=== PATIENT | female | born 1935 | race Caucasian/White ===

== ENCOUNTER 2017-05-30 15:24 | Outpatient (RCR) | payer MEDICARE, BC, SELFPAY ==
[2017-05-30 17:39] LABS: Prothrombin Time (Protime)PT. 29.8 SECONDS (11.7-14.9)
== END 2017-05-30 15:45 | disposition home or self-care (01) ==
LOC: MTLAB 15:24
PROVIDERS: Family Provider Family Medicine; PCP Family Medicine; Visit Provider Internal Medicine Cardiovascular Disease
DX: I48.0 Paroxysmal atrial fibrillation (principal); Z79.899 Other long term (current) drug therapy
CPT/HCPCS: 36415; 85610

== ENCOUNTER 2017-06-11 11:15 | Outpatient (RCR) | payer MEDICARE, BC, SELFPAY ==
[2017-06-11 12:14] LABS: International Normalized Ratio 3.9; Prothrombin Time (Protime)PT. 36.8 SECONDS (11.7-14.9)
== END 2017-06-11 11:16 | disposition home or self-care (01) ==
LOC: MTLAB 11:15
PROVIDERS: Family Provider Family Medicine; PCP Family Medicine; Visit Provider Internal Medicine Cardiovascular Disease
DX: I48.0 Paroxysmal atrial fibrillation (principal); Z79.899 Other long term (current) drug therapy
CPT/HCPCS: 36415; 85610

== ENCOUNTER 2017-07-08 10:50 | Outpatient (RCR) | payer MEDICARE, BC, SELFPAY ==
[2017-06-16 12:31] LABS: International Normalized Ratio 1.9; Prothrombin Time (Protime)PT. 20.6 SECONDS (11.7-14.9)
[2017-06-23 12:24] LABS: International Normalized Ratio 1.8; Prothrombin Time (Protime)PT. 20.3 SECONDS (11.7-14.9)
[2017-07-01 12:20] LABS: International Normalized Ratio 3.3
[2017-07-08 12:56] LABS: International Normalized Ratio 2.9; Prothrombin Time (Protime)PT. 28.9 SECONDS (11.7-14.9)
== END 2017-07-08 15:00 | disposition home or self-care (01) ==
LOC: MTLAB 10:50
PROVIDERS: Family Provider Family Medicine; PCP Family Medicine; Visit Provider Internal Medicine Cardiovascular Disease
DX: I48.0 Paroxysmal atrial fibrillation (principal); Z79.899 Other long term (current) drug therapy
CPT/HCPCS: 36415; 85610

== ENCOUNTER 2017-07-09 16:00 | Outpatient (RCR) | payer MEDICARE, BC, SELFPAY ==
--- NOTE | 2017-05-26 17:23 | HP.PTEVAL_ITS ---
Patient's Visit Information JOYCE SOLOMON is a 82 year old F referred to Physical Therapy by Hussein LUNA with a diagnosis of R upper trapezius strain. Date of Evaluation: 05/26/17 Physical Therapist: Skinny Montelongo - Visit Plan Frequency: 2x /Week Duration: 4 Weeks Plan: Start with R UT/levator scapulea and sub occipital stretching, trigger point release, gental cervical mobs PA, US to R UT and sub occipital region. Progress postural strengthening once symptoms has reduced. - Subjective Subjective: Pt. is here today for her initial evaluation with diagnosis of R upper trapezius strain. Pt. is a plesant 82 y.o. female who reports having increased pain over the past 1.5 weeks. Pt. does report a history of migraines ~ 3 years ago, but none since. Pt. reports no mechanism of injury. Pt. reports waking up with symptoms. Pt. reports symptoms are mostly on the R side, but does have some on the L side as well. She reports having pain that radiaties to temporalis region and front of head. Increased pain: cervical flexion and extension, reading, and lying. Decreased pain: heat and pressure to her sub occipital area. Pt. denies N/T in either UE. Pt. also reports having popping feeling in neck with ROM, occassionally painful. Pt. denies blurred vision, double vision, but does effect her ability to consentrate. Pt. is hopeful to reduce symptoms in order to get back to all activities with increased tolerance. - Pain R cervical spine Pain Intensity (Out of 10): 5 Pain Intensity Range: 3, 10 R temporal region Pain Intensity (Out of 10): 5 Pain Intensity Range: 2, 10 - Objective POSTURE: Pt. has rounded shoulders, FH positioning and increased thoracic kyphosis. PALPATION: Pt. has increased tenderness at R UT, R levator scapulea, R sub occipital region. Pt. does have tenderness to palpation of L sub occipital region as well. NEUROLOGICAL: Pt. has normal sensation to light and sharp touch throughout bilateral UEs. Pt. has 2+ biceps and triceps bilaterally. Pt. has no dural signs. ROM: CERVICAL SPINE: flexion nil loss increase NW, ext min loss increase NW, SB min loss bilat mild increase NW, rotation min/nil loss NE. Pt. has increased lower cervical flexion and increased upper cervical ext. Pt. has normal shoulder ROM, slight reduction in L shoulder ROM (previous shoulder injury). MMT-Pt. has expected strength throughout bilateral UEs. No myotomal weakness noted. Pt. has 4/5 cervical isometrics throughout no increase in symptoms. - Special Tests C/S Radiculapathy - Left Upper limb tension test: Negative C/S Radiculapathy - Right Upper limb tension test: Negative C/S Radiculapathy - Left Spurlings: Negative C/S Radiculapathy - Right Spurlings: Negative C/S Radiculapathy - Left Cervical distraction: Negative C/S Radiculapathy - Right Cervical distraction: Negative C/S Radiculapathy - Left Relief test: Negative C/S Radiculapathy - Right Relief test: Negative Sharp Orestes: Negative Vertebral Artery Test: Negative Alar Ligament Test: Negative Cervical Sitting: Protrusion - Mechanical Response: No effect Cervical Sitting: Protrusion - Symptoms During Testing: No effect Cervical Sitting: Protrusion - Symptoms After Testing: No effect Cervical Sitting: Retraction - Mechanical Response: No effect Cervical Sitting: Retraction - Symptoms During Testing: Increases Cervical Sitting: Retraction - Symptoms After Testing: No worse Cervical Sitting: Retraction-Extension - Mechanical Response: No effect Cerv Sitting: Retraction-Extension - Symptoms During Testing: Increases Cerv Sitting: Retraction-Extension - Symptoms After Testing: No worse Cervical Sitting: Sidebend Right - Mechanical Response: No effect Cervical Sitting: Sidebend Right - Symptoms During Testing: No effect Cervical Sitting: Sidebend Right - Symptoms After Testing: No effect Cervical Sitting: Sidebend Left - Mechanical Response: No effect Cervical Sitting: Sidebend Left - Symptoms During Testing: Increases Cervical Sitting: Sidebend Left - Symptoms After Testing: No worse Cervical Sitting: Rotation Right - Mechanical Response: No effect Cervical Sitting: Rotation Right - Symptoms During Testing: No effect Cervical Sitting: Rotation Right - Symptoms After Testing: No effect Cervical Sitting: Rotation Left - Mechanical Response: No effect Cervical Sitting: Rotation Left - Symptoms During Testing: No effect Cervical Sitting: Rotation Left - Symptoms After Testing: No effect Cervical Sitting: Flexion - Mechanical Response: No effect Cervical Sitting: Flexion - Symptoms During Testing: Increases Cervical Sitting: Flexion - Symptoms After Testing: No worse - Goals Goal 1:: Pt. to be I with HEP. Goal Time Frame: 4-6 Weeks Goal 2:: Pt. to have increased ROM of cervical spine by 25% in all directions without increase in symptoms. Goal Time Frame: 4-6 Weeks Goal 3:: Pt. to have decreased pain of cervical spine and TORO at rest to 0-1/10 allowing to increased quality of life. Goal Time Frame: 4-6 Weeks Goal 4:: Pt. to sleep throughout the night with 0-1/10 pain. Goal Time Frame: 4-6 Weeks Goal 5:: Pt. to demonstrate proper posture throughout therapy indicating increased postural awareness. Goal Time Frame: 4-6 Weeks Goal 6:: Pt. to complete all ADLs, house work, driving and reading with 0-1/10 pain. - Rehabilitation Potential Physical Therapy Diagnosis: Pt. has signs and symptoms consisten with R upper trapezius strain, but also tight sub occipitals causing occipital neuralgia symptoms. Pt. would benefit from postural education, scapular strengthening, trigger point realse and US to reduce symptoms. Rehabilitation Potential: Good - Anticipated Interventions Patient/Client Instruction: Educate patient on: Condition, Plan of Care, Risk Factors, Benefits of Fitness Program For the Purpose of:: To improve health and function, To foster healthy habits, To improve decision making, To facilitate caregiver knowledge, To improve self management, To prevent re-injury, To improve ability to perform tasks related to life management, To improve tolerance to ADL's Therapeutic Exercise to Include: Strength training, Power training, Body mechanics, Postural training, Flexibilty training, Passive ROM, Active ROM, Deon Exercises, Scapular Strength/Stabilization For the Purpose of:: To decrease pain, To increase ROM, To improve nutrient delivery to tissue, To increase oxygenation perfusion, To improve muscle performance and motor function, To increase tolerance to activity/condition/ position, To improve performance and independence with ADL's, To decrease soft tissue restriction, To increase flexibility/ROM Manual Therapy Techniques to Include: Trigger point massage, Mobilization, Passive ROM, Functional dry needling, Soft tissue mobilization For the Purpose of:: To decrease pain, To decrease swelling/inflammation, To increase ROM, To improve nutrient delivery to tissue, To increase oxygenation perfusion, To improve muscle performance and motor function Ultrasound (thermal/non thermal): Yes For the Purpose of:: To decrease pain, To increase ROM Thank you for the opportunity to evaluate your patient. For Medicare and Medicare HMO plans, please review the plan of care and approve it. It will need to be FAXED BACK to us at [phone] for Medicare purposes. Please let me know if there are questions or concerns regarding this plan of care. Physician Signature: Date:
--- NOTE | 2017-06-27 07:17 | HP.PTREVAL_ITS ---
DR.CRANNE Brigette It has been my pleasure to treat JOYCE SOLOMON over the last 8 visits for R upper trapezius strain. Please see the progress note below for an update on the physical therapy plan of care! Subjective: Pt. reports having a 2/10 TORO at front of head, no pulsating in temporal region this date. She reports being pain free for last two days, but TORO reoccured this AM. Pt. reports being HEP compliant with all exercises without adverse reaction. Pt. reports being 50% better overall. Objective/Function: Pt. is progressing with cervical ROM, but has no pain with ROM. Pt. is progressing with reduction in symptoms, but does have increased TORO at times. Overall reduction in symptoms and severity. Pt. reports wanting to continue to further reduce symptoms. Pt. has tightness in her suboccipitals, but is improving. She continues to require increased VCing to proper posture and to reduce stress applied to suboccipitals with all ADLs. Plan Plan: Pt. will continued to be seen x1 per week for 2-3 weeks to progress HEP and reduce symptoms. Goals Goal 1:: Pt. to be I with HEP. (pt. is compliant with HEP) Goal Time Frame: 4-6 Weeks Goal Progress: Goal Met Goal 2:: Pt. to have increased ROM of cervical spine by 25% in all directions without increase in symptoms. (CERIVCAL ROM: flexion nil loss NE, ext min loss NE, SB min loss bilat NE, rotaton nil/min loss NE) Goal Time Frame: 4-6 Weeks Goal Progress: Goal Met Goal 3:: Pt. to have decreased pain of cervical spine and TORO at rest to 0-1/10 allowing to increased quality of life. (pt. reports having a 2-3/10 pain at front of head, had 2 days without pain) Goal Time Frame: 4-6 Weeks Goal Progress: Progressing Goal 4:: Pt. to sleep throughout the night with 0-1/10 pain. (pt. reports improved sleeping- overall decreased pain throughout the night.) Goal Time Frame: 4-6 Weeks Goal Progress: Progressing Goal 5:: Pt. to demonstrate proper posture throughout therapy indicating increased postural awareness. Goal Time Frame: 4-6 Weeks Goal 6:: Pt. to complete all ADLs, house work, driving and reading with 0-1/10 pain. (Pt. reports being able to complete most or her chores and house work without symtpoms). Goal Progress: Progressing Anticipated Interventions Patient/Client Instruction: Educate patient on: Condition, Plan of Care, Risk Factors, Benefits of Fitness Program For the Purpose of:: To improve health and function, To foster healthy habits, To improve decision making, To facilitate caregiver knowledge, To improve self management, To prevent re-injury, To improve ability to perform tasks related to life management, To improve tolerance to ADL's Therapeutic Exercise to Include: Strength training, Power training, Body mechanics, Postural training, Flexibilty training, Passive ROM, Active ROM, Deon Exercises, Scapular Strength/Stabilization For the Purpose of:: To decrease pain, To increase ROM, To improve nutrient delivery to tissue, To increase oxygenation perfusion, To improve muscle performance and motor function, To increase tolerance to activity/condition/ position, To improve performance and independence with ADL's, To decrease soft tissue restriction, To increase flexibility/ROM Manual Therapy Techniques to Include: Trigger point massage, Mobilization, Passive ROM, Functional dry needling, Soft tissue mobilization For the Purpose of:: To decrease pain, To decrease swelling/inflammation, To increase ROM, To improve nutrient delivery to tissue, To increase oxygenation perfusion, To improve muscle performance and motor function Ultrasound (thermal/non thermal): Yes For the Purpose of:: To decrease pain, To increase ROM Please do not hesitate to contact me at [phone] by phone or Fax: if you have questions or concerns regarding this new plan of care! Sincerely, Skinny Montelongo
--- NOTE | 2017-07-10 07:27 | HP.PTDCSUM ---
HP - PT D/C Summary It has been my pleasure to treat JOYCE SOLOMON under orders from DR.CRANNE Brigette for the diagnosis of R upper trapezius strain for a total of 10 visit(s). Discharge Date: 07/09/17 Please see the following information for a summary of their discharge status. - Subjective Subjective: Pt. reports today is a good day, I have my good days and bad ones. Pt. reports having slight TORO in the front of her head this date. Pt. reports being HEP compliant without adverse reaction. Pt. reports being 60% better overall. - Pain R cervical spine Pain Intensity (Out of 10): 1 R temporal region Pain Intensity (Out of 10): 0 TORO Pain Intensity (Out of 10): 1 - Overall Improvement % Improvement: 60 - Objective Objective/Function: Pt. tolerated all PT this date. Pt. has started to have minimal progress with PT. Pt. is back to reading without issues and is able to demonstrate proper body mechanics with several activities. Pt. continues to have incerased difficulty maintaining proper cervical spine positioning. Pt. is independent with her HEP as this current time and will be DC to HEP today. - Goals Goal 1:: Pt. to be I with HEP. (pt. is compliant with HEP) Goal Progress: Goal Met Goal 2:: Pt. to have increased ROM of cervical spine by 25% in all directions without increase in symptoms. (CERIVCAL ROM: flexion nil loss NE, ext min loss NE, SB min loss bilat NE, rotaton nil/min loss NE) Goal Progress: Goal Met Goal 3:: Pt. to have decreased pain of cervical spine and TORO at rest to 0-1/10 allowing to increased quality of life. (pt. reports having a 0-2/10 pain at front of head, has pain ~2-3 times per week) Goal Progress: Goal Met Goal 4:: Pt. to sleep throughout the night with 0-1/10 pain. (pt. reports improved sleeping- overall decreased pain throughout the night.) Goal Progress: Goal Met Goal 5:: Pt. to demonstrate proper posture throughout therapy indicating increased postural awareness. (improved posture, but continues to have flexed lower cervical spine and extended upper cervical spine) Goal Progress: Progressing Goal 6:: Pt. to complete all ADLs, house work, driving and reading with 0-1/10 pain. (Pt. reports being able to complete most or her chores and house work without symtpoms). Goal Progress: Progressing - Plan Plan: Pt. to be DC to HEP today. - D/C Information Discharge Comments: Pt. made progress with manual stretching, body mechanics, US and trigger point release. Pt. has started to plataeu with exercises and PT. Pt. is independent with HEP and wished to continue on her own at this point in time. Pt. will be DC this date. If there are questions or concerns regarding this patient's physical therapy, please feel free to call me at [phone]. Thank you for the referral of this patient. Sincerely, Skinny Montelongo
== END 2017-07-09 19:00 | disposition home or self-care (01) ==
LOC: PT 16:00
PROVIDERS: Family Provider Family Medicine; PCP Family Medicine; Visit Provider Family Medicine
DX: S46.811D Strain of other muscles, fascia and tendons at shoulder and upper arm level, right arm, subsequent encounter (principal)
CPT/HCPCS: 97035; 97110; 97140; 97161; 97530

== ENCOUNTER 2017-08-05 11:13 | Outpatient (RCR) | payer MEDICARE, BC, SELFPAY ==
[2017-07-22 12:08] LABS: International Normalized Ratio 1.9; Prothrombin Time (Protime)PT. 22.2 SECONDS (11.7-14.9)
[2017-08-05 14:15] LABS: International Normalized Ratio 2.2; Prothrombin Time (Protime)PT. 24.3 SECONDS (11.7-14.9)
== END 2017-08-05 12:00 | disposition home or self-care (01) ==
LOC: MTLAB 11:13
PROVIDERS: Family Provider Family Medicine; PCP Family Medicine; Visit Provider Internal Medicine Cardiovascular Disease
DX: I48.91 Unspecified atrial fibrillation (principal); Z79.899 Other long term (current) drug therapy
CPT/HCPCS: 36415; 85610

== ENCOUNTER → 2017-08-18 17:25 | Outpatient (CLI) | payer MEDICARE, BC, SELFPAY ==
--- NOTE | 2017-08-18 09:45 | FLU_PTH ---
PATIENT: JOYCE SOLOMON LOC: [facility] U#:[id number] AGE/SX: 89/F ROOM: RE08/18/[address]: MIKE Greene : 1935 BED: DIS: SPEC #: [id number] RECD: 08/18/17 16:00 STATUS: KALPESH AURELIANO #: [id number] HILDA: 08/18/17 09:[address]: Nallely Wright NP DEPT: CYTOLOGY RECD BY: Oseas Child ENTERED: 08/19/17 09:11 SP TYPE: Fluid OTHR DR: Dr. Hussein Swenson MD Tissues: Urine Procedures: Pap Stain (control) Special Stain Group II Surgery Specimen Level IV Cytospin Fluid HEADER OPERATION: Not noted PRE-OP DIAGNOSIS: R31.1 TISSUE SUBMITTED: Urine for cytology DIAGNOSIS CYTOLOGY Urine for cytology (cytospin): Negative for malignant cells. AM:perry 08/20/17 COMMENT The specimen primarily contains squamous epithelial cells. Clinical correlation is suggested. CYTOLOGY STUDY Slides are reviewed. CYTOLOGY GROSS Received is 15 ml of clear yellow labeled with the patient's name and and designated per the requisition as urine. Submitted for cytology preparation. / BIENVENIDO:al 08/19/17 TC:5 [facility]: [id number]
[2017-08-18 17:31] LABS: Cytology, Body Fluid / CSF SEE PATHOLOGY REPORT
== END ==
PROVIDERS: Family Provider Family Medicine; Visit Provider Nurse Practitioner Adult Health
DX: R31.1 Benign essential microscopic hematuria (principal)
CPT/HCPCS: 88108; 88305; 88313

== ENCOUNTER 2017-08-20 11:25 | Outpatient (RCR) | payer MEDICARE, BC, SELFPAY ==
[2017-08-20 12:15] LABS: International Normalized Ratio 2.3; Prothrombin Time (Protime)PT. 25.5 SECONDS (11.7-14.9)
== END 2017-08-20 11:30 | disposition home or self-care (01) ==
LOC: MTLAB 11:25
PROVIDERS: Family Provider Family Medicine; PCP Family Medicine; Visit Provider Internal Medicine Cardiovascular Disease
DX: I48.91 Unspecified atrial fibrillation (principal); Z79.899 Other long term (current) drug therapy
CPT/HCPCS: 36415; 85610

== ENCOUNTER 2017-09-25 09:10 | Outpatient (RCR) | payer MEDICARE, BC, SELFPAY ==
[2017-09-25 10:19] LABS: International Normalized Ratio 2.4; Prothrombin Time (Protime)PT. 26.6 SECONDS (11.7-14.9)
== END 2017-09-25 10:00 | disposition home or self-care (01) ==
LOC: MTLAB 09:10
PROVIDERS: Family Provider Family Medicine; PCP Family Medicine; Visit Provider Internal Medicine Cardiovascular Disease
DX: I48.91 Unspecified atrial fibrillation (principal); Z79.899 Other long term (current) drug therapy
CPT/HCPCS: 36415; 85610

== ENCOUNTER 2017-10-20 13:16 | Outpatient (RCR) | payer MEDICARE, BC, SELFPAY ==
--- NOTE | 2017-10-20 13:16 | DT_ITS ---
This patient was seen during an EMR downtime October 13, 2017 - October 20, 2017. This patient may have a combination of paper and electronic documentation or all paper documentation. All documentation is viewable within the e-chart portion of [facility] for each patient visit.
[2017-10-20 16:31] LABS: International Normalized Ratio 2.9; Prothrombin Time (Protime)PT. 30.5 SECONDS (11.7-14.9)
== END 2017-10-20 14:00 | disposition home or self-care (01) ==
LOC: MTLAB 13:16
PROVIDERS: Family Provider Family Medicine; PCP Family Medicine; Visit Provider Internal Medicine Cardiovascular Disease
DX: I48.91 Unspecified atrial fibrillation (principal); Z79.899 Other long term (current) drug therapy
CPT/HCPCS: 36415; 85610

== ENCOUNTER → 2017-11-17 12:06 | Outpatient (CLI) | payer MEDICARE, BC, SELFPAY ==
[2017-11-17 14:05] LABS: Absolute Lymphocyte Count 1.63 X10^3/ul (0.83-4.51); Absolute Neutrophil Count 3.7 X10^3/uL (2.0-7.7); Basophil# 0.05 X10^3/uL; Basophil% 0.8 % (0-1); Eosinophil# 0.09 X10^3/uL; Eosinophils% 1.5 % (0-5); Hematocrit 38.7 % (37-47); Hemoglobin 12.3 g/dl (12.0-15.0); Lymphocyte # 1.63 X10^3/ul (4.0); Lymphocyte % 27.3 % (19-41); Mean Corp Hgb Conc 31.8 g/gl (32-36); Mean Corpuscular Hgb 30.2 pg (27.0-32.0); Mean Corpuscular Volume 95.1 fL (81-99); Mean Platelet Vol. 10.1 fl (6.2-12.0); Monocyte# 0.46 X10^3/uL; Monocyte% 7.7 % (0-10); Neutrophil # 3.73 X10^3/uL (2.7-7.7); Neutrophil % 62.5 % (47-70); Platelet Count 285 K/mm3 (150-450); Red Blood Count 4.07 M/mm3 (4.2-5.4)
[2017-11-17 14:06] LABS: Erythrocyte Sedimentation Rate 10 mm/hr (0-30)
[2017-11-17 14:07] LABS: POSITIVE COUNT NO; POSITIVE DIFFERENTIAL NO; POSITIVE MORPHOLOGY NO
[2017-11-17 14:15] LABS: Vitamin B12 437 pg/mL (211-911); Vitamin D,25 Hydroxy 49.8 ng/mL (29.95-100.01)
[2017-11-17 14:25] LABS: AST(SGOT) 24 U/L (15-37); Alanine Aminotransfer ALT/SGPT 25 U/L (13-56); Albumin, Serum 3.7 g/dL (3.2-5.0); Alkaline Phosphatase 57 U/L (45-117); Anion Gap 8 (5-15); BUN 22 mg/dL (7-18); BUN/Creat Ratio 24.1 RATIO (10-20); CRP 5.87 mg/L (0.0-3.0); Calcium,Total 8.8 mg/dL (8.5-10.1); Chloride 102 mmol/L (98-107); Creatinine, Serum 0.91 mg/dL (0.55-1.02); EST Glomerular Filtration Rate 63 mL/min (>60); Est Glom Filt Rate - Afr Amer 76 mL/min (>60); Globulin 3.7 g/dL (2.2-4.2); Glucose 91 mg/dL (74-106); Potassium 4.3 mmol/L (3.5-5.1); Protein, Total 7.4 g/dL (6.4-8.2); Rheumatoid Factor < 10.0 IU/mL (<15); Sodium Level 141 mmol/L (136-145); Thyroid Stim Hormone (TSH) 1.01 uIU/mL (0.358-3.74)
[2017-11-19 11:16] LABS: ANTINUCLEAR ANTIBODIES DIRECT Negative (Negative)
== END ==
PROVIDERS: Family Provider Family Medicine; PCP Family Medicine; Visit Provider Family Medicine
DX: M79.1 Myalgia (principal)
CPT/HCPCS: 36415; 80053; 82306; 82607; 84443; 85025; 85652; 86038; 86140; 86431

== ENCOUNTER 2017-12-09 09:12 | Outpatient (RCR) | payer MEDICARE, BC, SELFPAY ==
[2017-11-11 14:24] LABS: Prothrombin Time (Protime)PT. 31.1 SECONDS (11.7-14.9)
[2017-12-02 10:52] LABS: International Normalized Ratio 3.2; Prothrombin Time (Protime)PT. 32.7 SECONDS (11.7-14.9)
[2017-12-09 10:38] LABS: International Normalized Ratio 2.6; Prothrombin Time (Protime)PT. 27.7 SECONDS (11.7-14.9)
== END 2017-12-09 11:00 ==
LOC: MTLAB 09:12
PROVIDERS: Family Provider Family Medicine; PCP Family Medicine; Visit Provider Internal Medicine Cardiovascular Disease
DX: I48.91 Unspecified atrial fibrillation (principal); Z79.899 Other long term (current) drug therapy
CPT/HCPCS: 36415; 85610

== ENCOUNTER → 2017-12-19 09:35 | Outpatient (CLI) | payer MEDICARE, BC, SELFPAY ==
--- NOTE | 2017-12-19 19:54 | LEAS ---
Arterial Study - Arterial Study Arterial Study: This is an 82-year-old female with a history of atrial fibrillation and hypertension. The patient presents with right calf pain and nocturnal cramping. Suspecting the presence of atherosclerotic peripheral arterial occlusive disease, the patient was brought to the noninvasive vascular laboratory at this time for the purpose of bilateral noninvasive lower extremity arterial assessment. Doppler signal assessment was used to evaluate the pulses at ankle level bilaterally. The posterior tibial and dorsalis pedis pulses were triphasic bilaterally. Segmental limb pressures were obtained at ankle level bilaterally. The right ankle pressure, as determined by posterior tibial pulse, was measured at 223 mmHg. The right ankle pressure, as determined by dorsalis pedis pulse, was measured at 197 mmHg. The left ankle pressure, as determined by posterior tibial pulse, was measured at 218 mmHg. The left ankle pressure, as determined by dorsalis pedis pulse, was measured at 203 mmHg. Resting ankle-brachial indices were calculated bilaterally. The resting right ankle-brachial index was calculated to be 1.19. The resting left ankle-brachial index was calculated to be 1.17. The patient was then ambulated in the hallway at a moderate pace for 5 minutes without complaints. Ankle pressures were obtained 1 minute following cessation of exercise. 1 minute following cessation of exercise, the right ankle pressure was measured at 222 mmHg, and the left ankle pressure was measured at 232 mmHg. Impression: Based upon the findings of this resting and exercise noninvasive lower extremity arterial study, there is no evidence of significant atherosclerotic peripheral arterial occlusive disease in the lower extremities bilaterally. Triphasic waveforms were noted at ankle level bilaterally. Resting ankle-brachial indices were bilaterally normal. Following a period of exercise, ankle pressures are maintained on the right, and augmented on the left, which are relatively normal physiological responses. In summary, this represents a relatively normal resting and exercise noninvasive lower extremity arterial study bilaterally.
--- NOTE | 2017-12-19 20:00 | LEAS_ITS ---
Arterial Study - Arterial Study Arterial Study: This is an 82-year-old female with a history of atrial fibrillation and hypertension. The patient presents with right calf pain and nocturnal cramping. Suspecting the presence of atherosclerotic peripheral arterial occlusive disease, the patient was brought to the noninvasive vascular laboratory at this time for the purpose of bilateral noninvasive lower extremity arterial assessment. Doppler signal assessment was used to evaluate the pulses at ankle level bilaterally. The posterior tibial and dorsalis pedis pulses were triphasic bilaterally. Segmental limb pressures were obtained at ankle level bilaterally. The right ankle pressure, as determined by posterior tibial pulse, was measured at 223 mmHg. The right ankle pressure, as determined by dorsalis pedis pulse, was measured at 197 mmHg. The left ankle pressure, as determined by posterior tibial pulse, was measured at 218 mmHg. The left ankle pressure, as determined by dorsalis pedis pulse, was measured at 203 mmHg. Resting ankle-brachial indices were calculated bilaterally. The resting right ankle-brachial index was calculated to be 1.19. The resting left ankle- brachial index was calculated to be 1.17. The patient was then ambulated in the hallway at a moderate pace for 5 minutes without complaints. Ankle pressures were obtained 1 minute following cessation of exercise. 1 minute following cessation of exercise, the right ankle pressure was measured at 222 mmHg, and the left ankle pressure was measured at 232 mmHg. Impression: Based upon the findings of this resting and exercise noninvasive lower extremity arterial study, there is no evidence of significant atherosclerotic peripheral arterial occlusive disease in the lower extremities bilaterally. Triphasic waveforms were noted at ankle level bilaterally. Resting ankle-brachial indices were bilaterally normal. Following a period of exercise, ankle pressures are maintained on the right, and augmented on the left , which are relatively normal physiological responses. In summary, this represents a relatively normal resting and exercise noninvasive lower extremity arterial study bilaterally.
== END ==
PROVIDERS: Family Provider Family Medicine; PCP Family Medicine; Visit Provider Family Medicine
DX: I73.9 Peripheral vascular disease, unspecified (principal); M79.604 Pain in right leg; M79.605 Pain in left leg
CPT/HCPCS: 93922

== ENCOUNTER 2017-12-24 10:10 | Outpatient (RCR) | payer MEDICARE, BC, SELFPAY ==
[2017-12-24 13:01] LABS: International Normalized Ratio 2.8; Prothrombin Time (Protime)PT. 29.5 SECONDS (11.7-14.9)
== END 2017-12-24 12:00 | disposition home or self-care (01) ==
LOC: MTLAB 10:10
PROVIDERS: Family Provider Family Medicine; PCP Family Medicine; Visit Provider Internal Medicine Cardiovascular Disease
DX: I48.91 Unspecified atrial fibrillation (principal); Z79.01 Long term (current) use of anticoagulants
CPT/HCPCS: 36415; 85610

== ENCOUNTER → 2018-01-16 08:06 | Outpatient (CLI) | payer MEDICARE, BC, SELFPAY | PROVIDERS: Family Provider Family Medicine; PCP Family Medicine; Visit Provider Family Medicine | DX: Z12.31 Encounter for screening mammogram for malignant neoplasm of breast (principal) | CPT/HCPCS: 77063; 77067 ==

== ENCOUNTER 2018-02-04 10:20 | Outpatient (RCR) | payer MEDICARE, BC, SELFPAY ==
[2018-01-14 12:42] LABS: International Normalized Ratio 2.6; Prothrombin Time (Protime)PT. 28.3 SECONDS (11.7-14.9)
[2018-02-04 12:22] LABS: International Normalized Ratio 2.2; Prothrombin Time (Protime)PT. 24.4 SECONDS (11.7-14.9)
== END 2018-02-04 12:00 | disposition home or self-care (01) ==
LOC: MTLAB 10:20
PROVIDERS: Family Provider Family Medicine; PCP Family Medicine; Visit Provider Internal Medicine Cardiovascular Disease
DX: Z79.01 Long term (current) use of anticoagulants (principal)
CPT/HCPCS: 36415; 85610

== ENCOUNTER → 2018-02-11 14:34 | Outpatient (CLI) | payer MEDICARE, BC, SELFPAY ==
--- NOTE | 2018-02-11 14:37 | RAD_ITS ---
STUDY: X-RAY - RIGHT SHOULDER REASON FOR EXAM: Female, 82 years old. Right shoulder pain, fall 2 days ago. TECHNIQUE: 4 view(s) of the shoulder. COMPARISON: None. FINDINGS: Thoracic structures within the field of view exhibit no acute process. There is a calcified granuloma of the right lower lung. There is pulmonary hyperlucency suggesting underlying COPD. There are very minimal degenerative features of the right-sided acromioclavicular joint. There are no degenerative features of the glenohumeral articulation. Osseous structures about the shoulder are mildly osteopenic, acutely intact, no dislocation. RAD/Shoulder min 2 Views IMPRESSION: No acute radiographic abnormality. Electronically Signed: Niranjan Hubbard, at 15:15 EDT Tel , Service support ,
== END ==
PROVIDERS: Family Provider Family Medicine; PCP Family Medicine; Visit Provider Family Medicine
DX: M25.511 Pain in right shoulder (principal)
CPT/HCPCS: 73030

== ENCOUNTER → 2018-02-16 17:39 | Outpatient (CLI) | payer MEDICARE, BC, SELFPAY ==
--- NOTE | 2018-02-16 13:45 | CYSPIN_PTH ---
PATIENT: JOYCE SOLOMON LOC: [facility] U#:[id number] AGE/SX: 89/F ROOM: RE02/16/[address]: MIKE Greene : 1935 BED: DIS: SPEC #: [id number] RECD: 02/17/18 13:19 STATUS: KALPESH AURELIANO #: [id number] HILDA: 02/16/18 13:[address]: Nallely Wright NP DEPT: CYTOLOGY RECD BY: Niranjan Darling ENTERED: 02/17/18 13:20 SP TYPE: CYSPIN FL OTHR DR: Dr. Hussein Swenson MD Tissues: Urine Procedures: Pap Stain (control) Special Stain Group II Cytospin Fluid HEADER OPERATION: Not noted PRE-OP DIAGNOSIS: Microhematuria TISSUE SUBMITTED: Urine for cytology DIAGNOSIS CYTOLOGY Urine for cytology (cytospin): Negative for malignant cells. MACY:perry 02/18/18 COMMENT Correlation with clinical findings and appropriate follow up are necessary. CYTOLOGY STUDY Slides are reviewed. The specimen predominantly consists of benign squamous cells and squamous metaplastic cells. CYTOLOGY GROSS Received is 20 ml of cloudy gold fluid labeled with the patient's name and and designated per the requisition as urine. Submitted for cytology preparation. / 02/17/18 TC:5 CPT: 02570
[2018-02-16 17:42] LABS: Cytology, Body Fluid / CSF SEE PATHOLOGY REPORT
== END ==
PROVIDERS: Family Provider Family Medicine; PCP Family Medicine; Referring Provider Nurse Practitioner Adult Health; Visit Provider Nurse Practitioner Adult Health
DX: R31.29 Other microscopic hematuria (principal)
CPT/HCPCS: 88108; 88313

== ENCOUNTER 2018-02-25 10:02 | Outpatient (RCR) | payer MEDICARE, BC, SELFPAY ==
[2018-02-25 12:36] LABS: International Normalized Ratio 2.1
== END 2018-02-25 11:00 | disposition home or self-care (01) ==
LOC: MTLAB 10:02
PROVIDERS: Family Provider Family Medicine; PCP Family Medicine; Referring Provider Internal Medicine Cardiovascular Disease; Visit Provider Internal Medicine Cardiovascular Disease
DX: I48.91 Unspecified atrial fibrillation (principal); Z79.01 Long term (current) use of anticoagulants
CPT/HCPCS: 36415; 85610

== ENCOUNTER → 2018-03-11 08:14 | Outpatient (CLI) | payer MEDICARE, BC, SELFPAY ==
[2018-03-11 10:19] LABS: Hematocrit 39.2 % (37-47); Hemoglobin 12.1 g/dl (12.0-15.0); Mean Corp Hgb Conc 30.9 g/gl (32-36); Mean Platelet Vol. 10.3 fl (6.2-12.0); Platelet Count 270 K/mm3 (150-450); RBC Distribution Width CV 13.2 % (11.6-14.6); RBC Distribution Width SD 47.2 fl (35.1-43.9); Red Blood Count 4.04 M/mm3 (4.2-5.4); White Blood Count 5.4 K/mm3 (4.4-11.0)
[2018-03-11 10:20] LABS: Scan Indicated on CBC? Y/N NO
[2018-03-11 10:37] LABS: ALB/GLOB Ratio 0.9 RATIO (0.9-2.4); AST(SGOT) 22 U/L (15-37); Alanine Aminotransfer ALT/SGPT 22 U/L (13-56); Albumin, Serum 3.7 g/dL (3.2-5.0); Alkaline Phosphatase 58 U/L (45-117); Anion Gap 6 (5-15); BUN 24 mg/dL (7-18); BUN/Creat Ratio 28.6 RATIO (10-20); Calcium,Total 8.4 mg/dL (8.5-10.1); Chloride 102 mmol/L (98-107); Cholesterol 230 mg/dL (200); Creatinine, Serum 0.84 mg/dL (0.55-1.02); EST Glomerular Filtration Rate 69 mL/min (>60); Est Glom Filt Rate - Afr Amer 84 mL/min (>60); Globulin 3.9 g/dL (2.2-4.2); Glucose 85 mg/dL (74-106); High Density Lipoprotein 99 mg/dL; Potassium 3.9 mmol/L (3.5-5.1); Protein, Total 7.6 g/dL (6.4-8.2); Sodium Level 141 mmol/L (136-145); Triglycerides 68 mg/dL; Very Low Density Lipoprotein 14 mg/dL (5-40)
[2018-03-11 10:46] LABS: International Normalized Ratio 2.5; Prothrombin Time (Protime)PT. 26.9 SECONDS (11.7-14.9)
[2018-03-11 11:34] LABS: Vitamin D,25 Hydroxy 60.4 ng/mL (29.95-100.01)
== END ==
PROVIDERS: Internal Medicine Cardiovascular Disease; Family Provider Family Medicine; PCP Family Medicine; Referring Provider Family Medicine; Visit Provider Family Medicine
DX: I48.91 Unspecified atrial fibrillation (principal); Z79.01 Long term (current) use of anticoagulants; I10 Essential (primary) hypertension; M35.3 Polymyalgia rheumatica; M81.0 Age-related osteoporosis without current pathological fracture
CPT/HCPCS: 36415; 80053; 80061; 82306; 84443; 85027; 85610

== ENCOUNTER 2018-03-18 18:24 | Inpatient (IN) | payer MEDICARE, BC, SELFPAY ==
[2018-03-18 18:26] VITALS: BP 226/71; PULSE 75; PULSE 77; RESP 118; RESP 14; TEMP 36.4; O2SAT 97; O2SAT 98; BMI 34.4
--- NOTE | 2018-03-18 19:00 | RAD_ITS ---
STUDY: X-RAY - UNILATERAL RIBS ( LEFT ) WITH CHEST REASON FOR EXAM: Female, 82 years old. Pain after fall TECHNIQUE - RIBS: Three view(s) of the ribs were obtained. TECHNIQUE - CHEST: A single frontal view of the chest was obtained. COMPARISON: Chest radiograph dated December 25, 2016 FINDINGS - RIBS: There is cortical disruption in the lateral aspects of the left fifth through eighth ribs and possibly left fourth rib. FINDINGS - CHEST: The lungs are hyperinflated. There are increased interstitial markings throughout the lungs. There are no focal airspace opacities. There is no demonstrated pleural abnormality. The cardiac silhouette is normal in size. The mediastinum and hilar regions are unremarkable. Normal visualized pulmonary arteries. There is atherosclerotic calcification of the thoracic aorta. There are diffuse degenerative changes of the visualized spine. There is an old fracture in the left clavicle. There is no demonstrated abnormality of the visualized upper abdomen. RAD/Ribs Uni Min 3V w/PA Chest IMPRESSION: RIBS: Minimally displaced fractures are seen in the lateral aspects of the left fifth through eighth ribs. There may be a nondisplaced fracture in the lateral left fourth rib. CHEST: There is no evidence of pneumothorax or pleural effusion. 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 Electronically Signed: Jaja Ortiz MD at 20:30 EST Tel Direct: [phone], Service support ,
[2018-03-18] MEDS: oxyCODONE 5 MG Tablet 10 MG PO (19:48)
[2018-03-18 20:06] LABS: International Normalized Ratio 2.6; Prothrombin Time (Protime)PT. 28.1 SECONDS (11.7-14.9)
--- NOTE | 2018-03-18 20:43 | ED.VIS.GEN ---
History of Present Illness Chief Complaint: Fall Informant: Patient, Family Onset: Today Context: Sudden Onset - lost balance while reaching over bathtub, falling back against a door vs. her left mid-back Timing: Continuous Quality: pain Location: left mid-back Current Severity: Severe Maximum Severity: Severe Worsened by: moving, deep inspiration Relieved by: rest Associated Symptoms: mild sob due to pain w/ inspiration Narrative: Patient denies head injury or any other injury. She kind of fell onto her buttocks, and catching herself with her right upper extremity but denies any extremity or wrist pain. No lightheadedness, chest pain, or other prodromal symptoms. She also states that she might have slipped on a nearby throw rug. - Past Medical History (1) Chronic a-fib Status: Chronic (2) Benign essential HTN Status: Chronic Past Medical History - Allergies and Home Meds Allergies/Adverse Reactions: Allergies beet [Beet] Allergy (Verified 03/18/18 18:25) Hives levofloxacin [From Levaquin] Allergy (Verified 03/18/18 18:25) Unknown Penicillins Allergy (Verified 03/18/18 18:25) Unknown wheat Allergy (Verified 03/18/18 18:25) Hives gabapentin [From Neurontin] Adverse Reaction (Verified 03/18/18 18:25) Other meloxicam [From Mobic] Adverse Reaction (Verified 03/18/18 18:25) Other risedronate sodium [From Actonel] Adverse Reaction (Verified 03/18/18 18:25) Other CANTALOPE Allergy (Uncoded 05/18/17 13:52) Hives CONCENTRATES Allergy (Uncoded 05/18/17 13:52) Hives EGGPLANT Allergy (Uncoded 05/18/17 13:52) Hives MOLD Allergy (Uncoded 05/18/17 13:52) Unknown PROCESSED FOODS Allergy (Uncoded 05/18/17 13:52) Hives Primary Care Physician: Doyle Swenson MD [Primary Care Provider] - Surgical History: - - Thyroidectomy Parathyroidectomy Thyroidectomy Smoking Status: Never smoker Alcohol: None - Family History Paternal Family History: Family History (Last Reviewed 09/18/17 @ 13:02 by Evin Mora MD) Other Diabetes Heart disease Family History: Reports: No pertinent history Sibling Family History: Family History (Last Reviewed 09/18/17 @ 13:02 by Evin Mora MD) Other Diabetes Heart disease Family History: Reports: Heart Disease - Brother Review of Systems General: Denies: Chills, Fever Eyes: Denies: Visual changes - bilaterally, Diplopia Cardiovascular: Denies: Chest pain, Palpitations Respiratory: Reports: Dyspnea. Denies: Cough Gastrointestinal: Denies: Abdominal pain, Nausea, Vomiting, Diarrhea Genitourinary: Denies: Hematuria, Frequency Musculoskeletal: Reports: Back pain. Denies: Neck pain, Extremity Pain Skin: Denies: Rash, Wounds Hematologic: Reports: Easy bruising, Easy bleeding Physical Exam Vital Signs/Narrative: Vital Signs Temp Pulse Resp BP Pulse Ox 03/18/18 18:26 97.6 F L 75 118 H 226/71 H 98 Inital Vital Signs reviewed: Yes General: Well nourished, Well developed Head: Normocephalic, Atraumatic Eyes: Perrl, EOMI ENT: Moist mucous membranes, No rhinorrhea Neck: Supple, Nontender Cardiovascular: No murmurs, Irregular. Negative for: Tachycardia Respiratory: No distress, Chest nontender, Diminished - At bases Abdomen: Soft, Nontender, Nondistended, Normal bowel sounds Back: Normal Inspection, - - Very tender throughout the left mid thoracic rib cage, just below the tip of the scapula and not including the scapula. No crepitance or subcutaneous emphysema. Negative for: Spinal tenderness Extremities: Nontender, Edema - 1+ BLE, - - Full range of motion all joints of all 4 extremities without pain Skin: Normal color, No rash Neurological: Alert, Oriented x3, Cranial nerves II-XII grossly intact, Normal Strength, Normal Sensation Psychological: Normal affect Diagnostic/Tx/Re-eval Impressions Ribs w/Chest X-Ray 03/18/18 19:00 IMPRESSION: RIBS: Minimally displaced fractures are seen in the lateral aspects of the left fifth through eighth ribs. There may be a nondisplaced fracture in the lateral left fourth rib. CHEST: There is no evidence of pneumothorax or pleural effusion. 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 Electronically Signed: Jaja Ortiz MD at 20:30 EST Tel Direct: [phone], Service support , 03/18/18 19:00 Ribs Uni Min 3V w/PA Chest [RAD] Stat Laboratory Results 03/18/18 19:44 PT 28.1 H INR 2.6 - Medical Decision Making X-ray showed multiple rib fractures. Her pain is a lot better after oxycodone 10 mg. She states that she will be okay to go home and was able to get up out of bed with some light assistance. She will be given a prescription for oxycodone and an incentive spirometer with instructions. ED Disposition - Plan for ED Patient: Disposition: Home or Assisted Living Chief Complaint: Fall Diagnosis: Multiple fractures of ribs, left side, initial encounter for closed fracture Instructions: ED Mechanical Fall, ED Fx Rib Prescriptions: Oxycodone HCl/Acetaminophen [Percocet 5/325] 1 tablet PO Q4H PRN PRN 4 Days #24 tablet PRN Reason: Pain Referrals: Doyle Swenson MD [Primary Care Provider] - 1 Week Additional Instructions: Your INR is 2.6 today.
[2018-03-18] MEDS: Ondansetron ODT 4 MG Tablet 8 MG PO (21:31)
--- NOTE | 2018-03-18 22:35 | EKG12_ITS ---
Test Reason : FALL Blood Pressure : / mmHG Vent. Rate : 067 BPM Atrial Rate : 067 BPM P-R Int : 142 ms QRS Dur : 086 ms QT Int : 424 ms P-R-T Axes : 027 027 045 degrees QTc Int : 448 ms Normal sinus rhythm Normal ECG When compared with ECG of 25-DEC-2016 16:12, Sinus rhythm has replaced Atrial fibrillation Vent. rate has decreased BY 33 BPM QT has lengthened Confirmed by AYAZ HUNTER ([id number]), features editor JAVAD TIWARI ([id number]) on 03/23/2018 2:56:21 PM Referred By: Doyle Swenson Confirmed By:AYAZ HUNTER
[2018-03-18 22:41] LABS: Absolute Lymphocyte Count 1.06 X10^3/ul (0.83-4.51); Absolute Neutrophil Count 11.3 X10^3/uL (2.0-7.7); Basophil# 0.03 X10^3/uL; Basophil% 0.2 % (0-1); Eosinophil# 0.01 X10^3/uL; Eosinophils% 0.1 % (0-5); Lymphocyte # 1.06 X10^3/ul (4.0); Mean Corp Hgb Conc 32.4 g/gl (32-36); Mean Corpuscular Hgb 30.5 pg (27.0-32.0); Mean Corpuscular Volume 94.1 fL (81-99); Mean Platelet Vol. 9.9 fl (6.2-12.0); Monocyte# 0.81 X10^3/uL; Monocyte% 6.1 % (0-10); Neutrophil # 11.29 X10^3/uL (2.7-7.7); Neutrophil % 85.3 % (47-70); POSITIVE COUNT NO; POSITIVE DIFFERENTIAL NO; POSITIVE MORPHOLOGY NO; Platelet Count 264 K/mm3 (150-450); RBC Distribution Width CV 12.8 % (11.6-14.6); RBC Distribution Width SD 44.3 fl (35.1-43.9); Red Blood Count 3.93 M/mm3 (4.2-5.4); White Blood Count 13.2 K/mm3 (4.4-11.0)
--- NOTE | 2018-03-18 22:49 | HP.PCM_ITS ---
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 fib on Coumadin, hypertension came to ER after she fell down on left flank and upper back. Apparently, patient lost her balance while reaching over her bathtub and fell back against a door over left side of flank although she does not remember accurately. She is certain that she was awake and did not lose consciousness. Denies head injury. Patient had x-rays Ribs x-rays were done in ER and shows minimally displaced fracture on the lateral aspect of left fifth through eighth ribs. Possible nondisplaced fracture in the left lateral fourth rib. No evidence of pneumothorax or pleural effusion. The patient denies history of COPD, asthma but she has sleep apnea and uses CPAP. She has never been a smoker. Basic lab work shows leukocytosis 13.2 thousand, BUN 27 otherwise unremarkable. INR 2.6. 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) History of thyroidectomy (Chronic) History of parathyroidectomy (Chronic) History of thymectomy (Chronic) Benign essential HTN (Chronic) New onset a-fib (Chronic) Community acquired pneumonia (Chronic) Medical History: Medical History (Last Reviewed 09/18/17 @ 13:02 by Evin Mora MD) A-fib I48.91 Arthritis M19.90 Difficulty balancing R29.818 Fatigue R53.83 HTN (hypertension) I10 Heart disease I51.9 Limb weakness R29.898 Migraines G43.909 Pneumonia J18.9 SOB (shortness of breath) R06.02 Shoulder pain M25.519 Thyroid disease E07.9 Allergies beet [Beet] Allergy (Verified 03/18/18 18:25) Hives levofloxacin [From Levaquin] Allergy (Verified 03/18/18 18:25) Unknown Penicillins Allergy (Verified 03/18/18 18:25) Unknown wheat Allergy (Verified 03/18/18 18:25) Hives gabapentin [From Neurontin] Adverse Reaction (Verified 03/18/18 18:25) Other meloxicam [From Mobic] Adverse Reaction (Verified 03/18/18 18:25) Other risedronate sodium [From Actonel] Adverse Reaction (Verified 03/18/18 18:25) Other CANTALOPE Allergy (Uncoded 05/18/17 13:52) Hives CONCENTRATES Allergy (Uncoded 05/18/17 13:52) Hives EGGPLANT Allergy (Uncoded 05/18/17 13:52) Hives MOLD Allergy (Uncoded 05/18/17 13:52) Unknown PROCESSED FOODS Allergy (Uncoded 05/18/17 13:52) Hives Home Medications: Ambulatory Orders Medication Instructions Recorded Calcium Carb/Vitamin D 1 tab PO BID 02/26/13 [Caltrate-600 With Vit D Tab] Aspirin E.C. [Ecotrin] 81 mg PO DAILY@0800 #60 tab 07/29/13 Cholecalciferol (Vitamin D3) 1,000 unit PO DAILY 12/25/16 [Vitamin D3] Acetaminophen [Tylenol Extra 1,000 mg PO Q6H PRN 05/18/17 Strength] warfarin 4 mg tablet 4 mg PO QDAY #90 tab 06/11/17 atenolol 25 mg tablet See Rx Instructions PO .COMPLEX 09/18/17 tab atenolol 50 mg tablet 50 mg PO QPM #90 tab 11/13/17 Losartan Potassium 100 mg PO DAILY 03/18/18 Surgical History: Surgical History (Last Reviewed 09/18/17 @ 13:02 by Evin Mora MD) History of thyroid surgery Z98.890 History of tonsillectomy Z98.890, Z90.89 Hx of appendectomy Z98.890, Z90.49 Hx of bilateral cataract extraction Z98.41, Z98.42 Hx of cholecystectomy Z98.890, Z90.49 Surgical History: - - Thyroidectomy Parathyroidectomy Thyroidectomy Smoking Status: Never smoker Alcohol: None - *Family History Paternal Family History: Family History (Last Reviewed 09/18/17 @ 13:02 by Evin Mora MD) Other Diabetes Heart disease History Items: No pertinent history Sibling Family History: Family History (Last Reviewed 09/18/17 @ 13:02 by Evin Mora MD) Other Diabetes Heart disease History Items: Heart Disease - Brother Review of Systems Constitutional: Reports: Weakness. Denies: Chills, Fever, Weight Change HEENT: Denies: Head Aches, Sinus Congestion, Sinus Drainage Cardiovascular: Reports: Chest Pain - Localized rib pain on the left upper back near subscapular area. Denies: Palpitations Respiratory: Reports: Shortness of breath upon exertion. Denies: Cough, Shortness of breath at rest, Sputum production Gastrointestinal: Denies: Abdominal Pain, Nausea, Vomiting Genitourinary: Denies: Dysuria Musculoskeletal: Reports: Back Pain, Joint Pain, Joint stiffness. Denies: Joint Tenderness Skin: Denies: Rash, Wounds Neurological: Reports: Balance problems, Incoordination. Denies: Focal weakness, Numbness, Tingling Psychiatric: Denies: Anxiety, Depression, Homicidal Ideations, Suicidal Ideations Hematologic/ Lymphatic: Denies: Easy Bruising, Easy Bleeding VTE Information - Inpt Only VTE Present on Admission: No VTE Mechan Device Prophylaxis: None VTE Pharm Prophylaxis ordered?: Yes Reason prophylaxis not ordered:: Procedure Not Indicated - Already on Coumadin Patient Problems: Active and Suspected Problems (Last Reviewed 09/18/17 @ 13:02 by Evin Mora MD) Multiple fractures of ribs, left side, initial encounter for closed fracture (Acute) - Physical Exam General: Alert, Oriented x3, Cooperative HEENT: Atraumatic, PERRLA, EOMI, Normocephalic Neck: Supple, No JVD, Negative Carotid Bruits Lungs: Clear to auscultation, No rhonchi, No wheeze, No rales, Diminished - Air entry diminished mainly on left lower chest posteriorly probably secondary to decreased inspiratory effort due to pain, - - Mild shortness of breath on deep breathing or movement Cardiovascular: Normal S1, Normal S2, No murmurs, Irregular Rate Abdomen: Bowel Sounds Present, Soft, Non Tender, Non-Distended Extremities: Capillary Refill Less than 3 Seconds, Edema - Chronic bilateral lower extremity edema/lymphedema, no change recently Skin: No rashes, No breakdown Musculoskeletal: Arthritic Changes, Muscle Wasting Neurological: Cranial nerves II-XII grossly intact, Neuro grossly intact Psych/Mental Status: Normal Affect, Appropriate Vital Signs Temp Pulse Resp BP Pulse Ox 97.6 F L 77 118 H 226/71 H 98 03/18/18 18:26 03/18/18 18:26 03/18/18 18:26 03/18/18 18:26 03/18/18 18:26 Oxygen Delivery Method Room Air Weight: 182 lb 1.629 oz Body Mass Index (BMI) 34.4 Finger Stick Blood Glucose 151 Laboratory Tests Past 24 Hrs 03/18/18 19:44 PT 28.1 H INR 2.6 Assessment/Plan All Active Problems (Last Reviewed 09/18/17 @ 13:02 by Evin Mora MD) Multiple fractures of ribs, left side, initial encounter for closed fracture (Acute) The patient is a 82 year old F with history of chronic A. fib on Coumadin, hypertension came to ER after she fell down on left flank and upper back. Apparently, patient lost her balance while reaching over her bathtub and fell back against a door over left side of flank although she does not remember accurately. She is certain that she was awake and did not lose consciousness. Denies head injury. Patient had x-rays Ribs x-rays were done in ER and shows minimally displaced fracture on the lateral aspect of left fifth through eighth ribs. Possible nondisplaced fracture in the left lateral fourth rib. No evidence of pneumothorax or pleural effusion. The patient denies history of COPD, asthma but she has sleep apnea and uses CPAP. She has never been a smoker. Basic lab work shows leukocytosis 13.2 thousand, BUN 27 otherwise unremarkable. INR 2.6. 1. Fall with consequent left fifth through eighth ribs fracture on the lateral aspect posteriorly: Patient is being admitted on [facility] floor for pain control. Incentive spirometry. On chest x-ray there is no evidence of pneumothorax or pleural effusion or flail ribs syndrome. IV fluid normal saline as patient is mildly dehydrated. 2. Chronic A. fib on Coumadin: INR is therapeutic. Heart rate is controlled. Continue atenolol 25 mg. Patient is on both aspirin and Coumadin will hold aspirin for now. There is no history of coronary artery disease. Twelve-lead EKG ordered 3. Hypertension: Blood pressure is controlled. 4. Other chronic comorbidities include history of thyroidectomy and parathyro idectomy, degenerative joint disease, bilateral lower extremity edema/lymphedema decreased functional capacity: PT and OT ordered. Home medication reconciliation done. Labs ordered. Multiple comorbidities complicates the present care and expect difficult and delay recovery Clinical Impression(s) from Imaging Studies Ribs w/Chest X-Ray 03/18/18 19:00 IMPRESSION: RIBS: Minimally displaced fractures are seen in the lateral aspects of the left fifth through eighth ribs. There may be a nondisplaced fracture in the lateral left fourth rib. CHEST: There is no evidence of pneumothorax or pleural effusion. 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 Code Visit OBSV E&M: 38342 Initial observation care L3
[2018-03-18 22:53] LABS: Anion Gap 7 (5-15); BUN 27 mg/dL (7-18); BUN/Creat Ratio 38.5 RATIO (10-20); Calcium,Total 8.5 mg/dL (8.5-10.1); Chloride 100 mmol/L (98-107); EST Glomerular Filtration Rate 85 mL/min (>60); Est Glom Filt Rate - Afr Amer 103 mL/min (>60); Estimated Creatinine Clearance 33.29 ml/min; Glucose 109 mg/dL (74-106); Potassium 4.1 mmol/L (3.5-5.1); Sodium Level 136 mmol/L (136-145)
[2018-03-18 23:00] VITALS: BP 153/76; PULSE 61; RESP 16; TEMP 36.5; O2SAT 98
[2018-03-18 23:04] VITALS: BMI 33.1; BMI 34.4
[2018-03-18] MEDS: Ondansetron 4 MG/2 ML Vial IV (23:47)
[2018-03-18] MEDS: Acetaminophen 500 MG Tablet 1000 MG PO (23:49)
[2018-03-18] MEDS: Atenolol 50 MG Tablet PO (23:50)
[2018-03-18] MEDS: oxyCODONE 5 MG Tablet PO (23:51)
[2018-03-18] MEDS: 0.9% Normal Saline 1,000 ML 100 ML IV (23:54)
[2018-03-19 05:00] VITALS: BP 157/73; PULSE 74; RESP 16; TEMP 36.6; O2SAT 94
[2018-03-19] MEDS: oxyCODONE 5 MG Tablet PO ×3 (05:13→22:30)
[2018-03-19] MEDS: Famotidine 20 MG Tablet PO ×2 (05:17→22:30)
[2018-03-19 06:17] LABS: Basophil# 0.02 X10^3/uL; Basophil% 0.2 % (0-1); Eosinophil# 0.03 X10^3/uL; Eosinophils% 0.4 % (0-5); Lymphocyte % 11.9 % (19-41); Mean Corp Hgb Conc 32.4 g/gl (32-36); Mean Corpuscular Volume 95.8 fL (81-99); Mean Platelet Vol. 10.2 fl (6.2-12.0); Monocyte# 0.42 X10^3/uL; Neutrophil # 6.95 X10^3/uL (2.7-7.7); Neutrophil % 82.4 % (47-70); Platelet Count 235 K/mm3 (150-450); RBC Distribution Width CV 12.5 % (11.6-14.6); RBC Distribution Width SD 42.4 fl (35.1-43.9); Red Blood Count 3.55 M/mm3 (4.2-5.4); White Blood Count 8.4 K/mm3 (4.4-11.0)
[2018-03-19 06:27] LABS: International Normalized Ratio 2.5
[2018-03-19 06:34] LABS: POSITIVE COUNT NO; POSITIVE DIFFERENTIAL NO; POSITIVE MORPHOLOGY NO
[2018-03-19 06:51] LABS: Anion Gap 9 (5-15); BUN 23 mg/dL (7-18); BUN/Creat Ratio 30.2 RATIO (10-20); Calcium,Total 8.2 mg/dL (8.5-10.1); Chloride 103 mmol/L (98-107); Creatinine, Serum 0.76 mg/dL (0.55-1.02); EST Glomerular Filtration Rate 77 mL/min (>60); Est Glom Filt Rate - Afr Amer 94 mL/min (>60); Estimated Creatinine Clearance 33.29 ml/min; Glucose 125 mg/dL (74-106); Potassium 4.4 mmol/L (3.5-5.1); Sodium Level 137 mmol/L (136-145)
[2018-03-19] MEDS: Mag Hydrox/Al Hydrox/Simeth 30 ML UDC PO (07:33)
[2018-03-19 08:33] VITALS: O2SAT 93
[2018-03-19] MEDS: 0.9% Normal Saline 1,000 ML 100 ML IV ×2 (09:03→18:29)
[2018-03-19] MEDS: Ondansetron 4 MG/2 ML Vial IV ×2 (09:03→20:28)
[2018-03-19 10:20] VITALS: BP 163/55; PULSE 71; RESP 18; TEMP 37.2; O2SAT 97
[2018-03-19] MEDS: Polyethylene Glycol 3350 17 GM PACKET PO (10:24)
[2018-03-19] MEDS: Losartan Potassium 100 MG Tablet PO (10:24)
[2018-03-19] MEDS: Atenolol 25 MG Tablet PO (10:25)
[2018-03-19] MEDS: Acetaminophen 500 MG Tablet 1000 MG PO ×2 (10:31→18:28)
--- NOTE | 2018-03-19 13:45 | CASEMGMT ---
RN CM Face to Face with patient for initial transition planning/care coordination assessment. RN CM introduced self and role at [facility]. Patient lying in bed, alert and oriented. Patient willing to participate in assessment and is able to answer all questions appropriately. Care providers, pharmacy, and demographics verified. Patient wishes to discharge home and is interested in HHC or outpatient therapy. Patient states she has no further needs or concerns at this time. CM to follow for discharge planning needs that may arise. PCP: Leela Specialists: Abby breast worker Preferred Pharmacy: [facility] Insurance: [employer] Prescription Benefit: yes Living Will/HPOA: Yes daughter Janki Moralez LNOK: Daughter and grandson. Living Arrangements: [facility] [place] [facility] [place] [facility] with 2 steps to enter home. Transportation: Self/family DME/HHC: Patient has Tub bench, raised toilet seat, cane, Cpap. May benefit from walker. Disposition Plan: Patient to discharge home with family support and follow-up plans in place. Will monitor for need for HHC vs outpatient therapy. Mary MCGREGOR, RN, CM
--- NOTE | 2018-03-19 14:35 | PCM.PN.HOSP ---
Patient Problems: Active and Suspected Problems (Last Reviewed 09/18/17 @ 13:02 by Evin Mora MD) Multiple fractures of ribs, left side, initial encounter for closed fracture (Acute) Subjective: Patient seen and examined. She was admitted overnight after she fell and fractured her ribs. She says she was reaching for something in her bathroom and then tripped and fell. She had no antecedent lightheadedness or dizziness or palpitations. She states she has had frequent minor falls before. She denies any fever or chills but admits to pain over the site of the rib fracture. She denies any cough or chest pain, shortness of breath, abdominal pain, diarrhea or vomiting. Review of systems otherwise negative. Labs and vitals reviewed. Vitals/I&O's: Vital Signs Temp Pulse Resp BP Pulse Ox 99.0 F 71 18 163/55 H 97 03/19/18 10:20 03/19/18 10:20 03/19/18 10:20 03/19/18 10:20 03/19/18 10:20 Oxygen Delivery Method Room Air Weight: 175 lb 4.28 oz Body Mass Index (BMI) 33.1 Finger Stick Blood Glucose 151 Intake and Output for Last 24 Hours 03/17/18 03/18/18 03/19/18 23:59 23:59 23:59 Intake Total 1238 / 1238 Balance 1238 / 1238 General: Alert, Oriented x3, Cooperative, No apparent distress HEENT: Atraumatic, PERRLA, EOMI, Normocephalic Oral: Moist Mucosa Neck: Supple, No JVD, Negative Carotid Bruits Lungs: Clear to auscultation, Normal air movement, No rhonchi, No wheeze, No rales Cardiovascular: Regular rate, Regular Rhythm, Normal S1, Normal S2, No murmurs Abdomen: Bowel Sounds Present, Soft, Non Tender, Non-Distended, No Hepato-splenomegaly Extremities: No clubbing, No cyanosis, No edema, Capillary Refill Less than 3 Seconds Lymphatic: No Cervical, Supraclavicular, or Inguinal Adenopathy Neurological: Cranial nerves II-XII grossly intact, Neuro grossly intact, Motor Exam 5/5 strength throughout Psych/Mental Status: Normal Affect, Appropriate, Alert and oriented to time, place, person, mood and affect Laboratory Results 03/18/18 19:44: PT 28.1 H, INR 2.6 03/18/18 22:35: WBC 13.2 H, RBC 3.93 L, Hgb 12.0, Hct 37.0, MCV 94.1, MCH 30.5, MCHC 32.4, RDW 12.8, RDW Differential 44.3 H, Plt Count 264, MPV 9.9, Immature Gran % (Auto) 0.300, Neut % (Auto) 85.3 H, Lymph % (Auto) 8.0 L, Ritchie % (Auto) 6.1, Eos % (Auto) 0.1, Baso % (Auto) 0.2, Absolute Neuts (auto) 11.3 H, Absolute Lymphs (auto) 1.06, Total Counted Not Reportable 03/18/18 22:35: Sodium 136, Potassium 4.1, Chloride 100, Carbon Dioxide 29.0, Anion Gap 7, BUN 27 H, Creatinine 0.70, Estim Creat Clear Calc 33.29, Est GFR (MDRD) Af Amer 103, Est GFR (MDRD) Non-Af 85, BUN/Creatinine Ratio 38.5 H, Glucose 109 H, Calcium 8.5 03/19/18 06:06: PT 27.0 H, INR 2.5 03/19/18 06:06: Sodium 137, Potassium 4.4, Chloride 103, Carbon Dioxide 25.0, Anion Gap 9, BUN 23 H, Creatinine 0.76, Estim Creat Clear Calc 33.29, Est GFR (MDRD) Af Amer 94, Est GFR (MDRD) Non-Af 77, BUN/Creatinine Ratio 30.2 H, Glucose 125 H, Calcium 8.2 L 03/19/18 06:06: WBC 8.4, RBC 3.55 L, Hgb 11.0 L, Hct 34.0 L, MCV 95.8, MCH 31.0, MCHC 32.4, RDW 12.5, RDW Differential 42.4, Plt Count 235, MPV 10.2, Immature Gran % (Auto) 0.100, Neut % (Auto) 82.4 H, Lymph % (Auto) 11.9 L, Ritchie % (Auto) 5.0, Eos % (Auto) 0.4, Baso % (Auto) 0.2, Absolute Neuts (auto) 7.0, Absolute Lymphs (auto) 1.00, Total Counted Not Reportable Diagnostic Data Ribs w/Chest X-Ray 03/18/18 19:00 IMPRESSION: RIBS: Minimally displaced fractures are seen in the lateral aspects of the left fifth through eighth ribs. There may be a nondisplaced fracture in the lateral left fourth rib. CHEST: There is no evidence of pneumothorax or pleural effusion. 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 Electronically Signed: Jaja Ortiz MD at 20:30 EST Tel Direct: [phone], Service support , Current Medications Acetaminophen (Tylenol) 1,000 mg PO Q6H PRN PRN Reason: PAIN Last Admin: 03/19/18 10:31 Dose: 1,000 mg Al Hydroxide/Mg Hydroxide (Mylanta Ii) 30 ml PO Q6H PRN PRN PRN Reason: Gastric burning Last Admin: 03/19/18 07:33 Dose: 30 ml Atenolol (Tenormin (Beta Emily)) 50 mg PO HS ON LICENSE OF [facility] Last Admin: 03/18/18 23:50 Dose: 50 mg Atenolol (Tenormin (Beta Emily)) 0 mg PO QAM ON LICENSE OF [facility] Last Admin: 03/19/18 10:25 Dose: 25 mg Calcium/Vitamin D (Os-Bassam 500mg + D[facility] Last Admin: 03/19/18 10:24 Dose: Not Given Cholecalciferol (Vitamin D) 1,000 unit PO DAILY ON LICENSE OF [facility] Last Admin: 03/19/18 10:27 Dose: Not Given Famotidine (Pepcid) 20 mg PO BID ON LICENSE OF [facility] Last Admin: 03/19/18 05:17 Dose: 20 mg Sodium Chloride () 1,000 mls @ 100 mls/hr IV .Q10H ON LICENSE OF [facility] Last Admin: 03/19/18 09:03 Dose: 100 mls/hr Losartan Potassium (Cozaar) 100 mg PO DAILY ON LICENSE OF [facility] Last Admin: 03/19/18 10:24 Dose: 100 mg Morphine Sulfate () 2 mg IV Q3H PRN PRN PRN Reason: SEVERE PAIN (6-10/10) Ondansetron HCl (Zofran) 4 mg IV Q8H PRN PRN PRN Reason: NAUSEA Last Admin: 03/19/18 09:03 Dose: 4 mg Oxycodone HCl (Oxyir) 5 - 10 mg PO Q4H PRN PRN PRN Reason: SEVERE PAIN (6-02/18) Last Admin: 03/19/18 05:13 Dose: 10 mg Polyethylene Glycol (Miralax) 17 gm PO DAILY BATSHEVA Last Admin: 03/19/18 10:24 Dose: 17 gm Psyllium Hydrophilic Mucilloid (Metamucil) 1 packet PO DAILY PRN PRN PRN Reason: CONSTIPATION Senna/Docusate Sodium (Senokot-S, Nafisa-Colace) 2 tablet PO BID PRN PRN PRN Reason: contipation Sodium Chloride () 5 - 30 ml IV UD PRN PRN Reason: SALINE FLUSH Warfarin Sodium (Coumadin (Pbkc)) 4 mg PO DAILY@1700 BATSHEVA; Protocol Zolpidem Tartrate (Ambien (Generic)) 5 mg PO QHS PRN PRN PRN Reason: INSOMNIA Medical Necessity - Tobacco Use Smoking Status: Never smoker Assessment/Plan All Active Problems (Last Reviewed 09/18/17 @ 13:02 by Evin Mora MD) Multiple fractures of ribs, left side, initial encounter for closed fracture (Acute) 1. Left 5th-8th rib fractures due to mechanical fall Pain fairly well controlled. Chest x-ray showed minimally displaced fractures of the lateral aspect of left fifth through eighth ribs. Also possible nondisplaced fracture of the lateral fourth rib. IV morphine as needed PT OT on board. 2. MEchanical fall says she was reaching for something in her bathroom and fell backwards. Denies any dizziness or lightheadedness. says she has had one small fall a few months ago and a major fall some time back PT/OT on board patient lives alone and is adamant she wont go to a SNF as she wants to maintain her independence. patient counselled about home health care and home PT/OT, and she is agreeable to this. Also couonselled about getting a Life Alert so she can call for help easily, and she is agreeable to this as she says her family has been bugging her to get one. on calcium and vitamin D already 3. A. fib: Rate controlled. On atenolol 25 mg. On aspirin and Coumadin. INR was therapeutic on admission. Aspirin was held. Will discuss with her admitting coordinator about stopping Coumadin as well in light of her frequent falls. 4. Hypertension: Well controlled. On losartan and atenolol 5. History of thyroidectomy and parathyroidectomy: Stable Code Visit Inpatient E&M: 98559 Subs Hosp L2
--- NOTE | 2018-03-19 14:46 | PN_ITS ---
Patient Problems: Active and Suspected Problems (Last Reviewed 09/18/17 @ 13:02 by Evin Mora MD) Multiple fractures of ribs, left side, initial encounter for closed fracture (Acute) Subjective: Patient seen and examined. She was admitted overnight after she fell and fractured her ribs. She says she was reaching for something in her bathroom and then tripped and fell. She had no antecedent lightheadedness or dizziness or palpitations. She states she has had frequent minor falls before. She denies any fever or chills but admits to pain over the site of the rib fracture. She denies any cough or chest pain, shortness of breath, abdominal pain, diarrhea or vomiting. Review of systems otherwise negative. Labs and vitals reviewed. Vitals/I&O's: Vital Signs Temp Pulse Resp BP Pulse Ox 99.0 F 71 18 163/55 H 97 03/19/18 10:20 03/19/18 10:20 03/19/18 10:20 03/19/18 10:20 03/19/18 10:20 Oxygen Delivery Method Room Air Weight: 175 lb 4.28 oz Body Mass Index (BMI) 33.1 Finger Stick Blood Glucose 151 Intake and Output for Last 24 Hours 03/17/18 03/18/18 03/19/18 23:59 23:59 23:59 Intake Total 1238 / 1238 Balance 1238 / 1238 General: Alert, Oriented x3, Cooperative, No apparent distress HEENT: Atraumatic, PERRLA, EOMI, Normocephalic Oral: Moist Mucosa Neck: Supple, No JVD, Negative Carotid Bruits Lungs: Clear to auscultation, Normal air movement, No rhonchi, No wheeze, No rales Cardiovascular: Regular rate, Regular Rhythm, Normal S1, Normal S2, No murmurs Abdomen: Bowel Sounds Present, Soft, Non Tender, Non-Distended, No Hepato- splenomegaly Extremities: No clubbing, No cyanosis, No edema, Capillary Refill Less than 3 Seconds Lymphatic: No Cervical, Supraclavicular, or Inguinal Adenopathy Neurological: Cranial nerves II-XII grossly intact, Neuro grossly intact, Motor Exam 5/5 strength throughout Psych/Mental Status: Normal Affect, Appropriate, Alert and oriented to time, place, person, mood and affect Laboratory Results 03/18/18 19:44: PT 28.1 H, INR 2.6 03/18/18 22:35: WBC 13.2 H, RBC 3.93 L, Hgb 12.0, Hct 37.0, MCV 94.1, MCH 30.5, MCHC 32.4, RDW 12.8, RDW Differential 44.3 H, Plt Count 264, MPV 9.9, Immature Gran % (Auto) 0.300, Neut % (Auto) 85.3 H, Lymph % (Auto) 8.0 L, [place] % (Auto) 6.1, Eos % (Auto) 0.1, Baso % (Auto) 0.2, Absolute Neuts (auto) 11.3 H, Absolute Lymphs (auto) 1.06, Total Counted Not Reportable 03/18/18 22:35: Sodium 136, Potassium 4.1, Chloride 100, Carbon Dioxide 29.0, Anion Gap 7, BUN 27 H, Creatinine 0.70, Estim Creat Clear Calc 33.29, Est GFR (MDRD) Af Amer 103, Est GFR (MDRD) Non-Af 85, BUN/Creatinine Ratio 38.5 H, Glucose 109 H, Calcium 8.5 03/19/18 06:06: PT 27.0 H, INR 2.5 03/19/18 06:06: Sodium 137, Potassium 4.4, Chloride 103, Carbon Dioxide 25.0, Anion Gap 9, BUN 23 H, Creatinine 0.76, Estim Creat Clear Calc 33.29, Est GFR (MDRD) Af Amer 94, Est GFR (MDRD) Non-Af 77, BUN/Creatinine Ratio 30.2 H, Glucose 125 H, Calcium 8.2 L 03/19/18 06:06: WBC 8.4, RBC 3.55 L, Hgb 11.0 L, Hct 34.0 L, MCV 95.8, MCH 31.0, MCHC 32.4, RDW 12.5, RDW Differential 42.4, Plt Count 235, MPV 10.2, Immature Gran % (Auto) 0.100, Neut % (Auto) 82.4 H, Lymph % (Auto) 11.9 L, [place] % (Auto) 5.0, Eos % (Auto) 0.4, Baso % (Auto) 0.2, Absolute Neuts (auto) 7.0, Absolute Lymphs (auto) 1.00, Total Counted Not Reportable Diagnostic Data Ribs w/Chest X-Ray 03/18/18 19:00 IMPRESSION: RIBS: Minimally displaced fractures are seen in the lateral aspects of the left fifth through eighth ribs. There may be a nondisplaced fracture in the lateral left fourth rib. CHEST: There is no evidence of pneumothorax or pleural effusion. 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 Electronically Signed: Jaja Ortiz MD at 20:30 EST Tel Direct: [phone], Service support , Current Medications Acetaminophen (Tylenol) 1,000 mg PO Q6H PRN PRN Reason: PAIN Last Admin: 03/19/18 10:31 Dose: 1,000 mg Al Hydroxide/Mg Hydroxide (Mylanta Ii) 30 ml PO Q6H PRN PRN PRN Reason: Gastric burning Last Admin: 03/19/18 07:33 Dose: 30 ml Atenolol (Tenormin (Beta Emily)) 50 mg PO HS [facility] Last Admin: 03/18/18 23:50 Dose: 50 mg Atenolol (Tenormin (Beta Emily)) 0 mg PO QAM [facility] Last Admin: 03/19/18 10:25 Dose: 25 mg Calcium/Vitamin D (Os-Bassam 500mg + D) [facility] Last Admin: 03/19/18 10:24 Dose: Not Given Cholecalciferol (Vitamin D) 1,000 unit PO DAILY [facility] Last Admin: 03/19/18 10:27 Dose: Not Given Famotidine (Pepcid) 20 mg PO BID [facility] Last Admin: 03/19/18 05:17 Dose: 20 mg Sodium Chloride () 1,000 mls @ 100 mls/hr IV .Q10H [facility] Last Admin: 03/19/18 09:03 Dose: 100 mls/hr Losartan Potassium (Cozaar) 100 mg PO DAILY [facility] Last Admin: 03/19/18 10:24 Dose: 100 mg Morphine Sulfate () 2 mg IV Q3H PRN PRN PRN Reason: SEVERE PAIN (6-10/10) Ondansetron HCl (Zofran) 4 mg IV Q8H PRN PRN PRN Reason: NAUSEA Last Admin: 03/19/18 09:03 Dose: 4 mg Oxycodone HCl (Oxyir) 5 - 10 mg PO Q4H PRN PRN PRN Reason: SEVERE PAIN (6-02/18) Last Admin: 03/19/18 05:13 Dose: 10 mg Polyethylene Glycol (Miralax) 17 gm PO DAILY [facility] Last Admin: 03/19/18 10:24 Dose: 17 gm Psyllium Hydrophilic Mucilloid (Metamucil) 1 packet PO DAILY PRN PRN PRN Reason: CONSTIPATION Senna/Docusate Sodium (Senokot-S, Nafisa-Colace) 2 tablet PO BID PRN PRN PRN Reason: contipation Sodium Chloride () 5 - 30 ml IV UD PRN PRN Reason: SALINE FLUSH Warfarin Sodium (Coumadin (Pbkc)) 4 mg PO DAILY@1700 [facility]; Protocol Zolpidem Tartrate (Ambien (Generic)) 5 mg PO QHS PRN PRN PRN Reason: INSOMNIA Medical Necessity - Tobacco Use Smoking Status: Never smoker Assessment/Plan All Active Problems (Last Reviewed 09/18/17 @ 13:02 by Evin Mora MD) Multiple fractures of ribs, left side, initial encounter for closed fracture (Acute) 1. Left 5th-8th rib fractures due to mechanical fall * Pain fairly well controlled. * Chest x-ray showed minimally displaced fractures of the lateral aspect of left fifth through eighth ribs. Also possible nondisplaced fracture of the lateral fourth rib. * IV morphine as needed * PT OT on board. * 2. MEchanical fall * says she was reaching for something in her bathroom and fell backwards. Denies any dizziness or lightheadedness. * says she has had one small fall a few months ago and a major fall some time back * PT/OT on board * patient lives alone and is adamant she wont go to a SNF as she wants to maintain her independence. * patient counselled about home health care and home PT/OT, and she is agreeable to this. Also couonselled about getting a Life Alert so she can call for help easily, and she is agreeable to this as she says her family has been bugging her to get one. * on calcium and vitamin D already * 3. A. fib: Rate controlled. * On atenolol 25 mg. * On aspirin and Coumadin. * INR was therapeutic on admission. * Aspirin was held. 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 * 4. Hypertension: Well controlled. On losartan and atenolol 5. History of thyroidectomy and parathyroidectomy: Stable Code Visit Inpatient E&M: 06158 Subs Hosp L2
[2018-03-19 15:55] VITALS: BP 158/41; PULSE 66; RESP 16; TEMP 36.6; O2SAT 96
[2018-03-19 20:15] VITALS: BP 158/57; PULSE 65; RESP 16; TEMP 36.9; O2SAT 92
[2018-03-19] MEDS: Atenolol 50 MG Tablet PO (22:30)
[2018-03-19 22:34] VITALS: BP 157/65; PULSE 65
[2018-03-20 02:24] VITALS: BP 142/50; PULSE 59; RESP 16; TEMP 37.4; O2SAT 95
[2018-03-20] MEDS: 0.9% Normal Saline 1,000 ML 100 ML IV ×2 (05:34→15:19)
[2018-03-20] MEDS: Ondansetron 4 MG/2 ML Vial IV ×2 (05:34→15:16)
[2018-03-20 07:35] LABS: Anion Gap 3 (5-15); BUN 17 mg/dL (7-18); BUN/Creat Ratio 22.5 RATIO (10-20); Calcium,Total 7.3 mg/dL (8.5-10.1); Chloride 104 mmol/L (98-107); Creatinine, Serum 0.76 mg/dL (0.55-1.02); EST Glomerular Filtration Rate 78 mL/min (>60); Est Glom Filt Rate - Afr Amer 94 mL/min (>60); Estimated Creatinine Clearance 33.29 ml/min; Glucose 94 mg/dL (74-106); Potassium 4.3 mmol/L (3.5-5.1); Sodium Level 136 mmol/L (136-145)
[2018-03-20 07:36] LABS: Absolute Lymphocyte Count 1.15 X10^3/ul (0.83-4.51); Absolute Neutrophil Count 4.1 X10^3/uL (2.0-7.7); Basophil# 0.03 X10^3/uL; Basophil% 0.5 % (0-1); Eosinophil# 0.08 X10^3/uL; Eosinophils% 1.3 % (0-5); Hematocrit 31.4 % (37-47); Hemoglobin 9.7 g/dl (12.0-15.0); Lymphocyte # 1.15 X10^3/ul (4.0); Lymphocyte % 18.9 % (19-41); Mean Corp Hgb Conc 30.9 g/gl (32-36); Mean Corpuscular Volume 97.2 fL (81-99); Mean Platelet Vol. 10.2 fl (6.2-12.0); Monocyte# 0.71 X10^3/uL; Monocyte% 11.7 % (0-10); Neutrophil # 4.11 X10^3/uL (2.7-7.7); Neutrophil % 67.4 % (47-70); Platelet Count 203 K/mm3 (150-450); RBC Distribution Width CV 12.8 % (11.6-14.6); RBC Distribution Width SD 43.3 fl (35.1-43.9); Red Blood Count 3.23 M/mm3 (4.2-5.4); White Blood Count 6.1 K/mm3 (4.4-11.0)
[2018-03-20 07:40] VITALS: BP 187/48; PULSE 79; RESP 17; TEMP 36.9; O2SAT 93
[2018-03-20 07:44] LABS: International Normalized Ratio 2.9; Prothrombin Time (Protime)PT. 30.1 SECONDS (11.7-14.9)
[2018-03-20 07:45] LABS: POSITIVE COUNT NO; POSITIVE DIFFERENTIAL NO; POSITIVE MORPHOLOGY NO
[2018-03-20 07:46] LABS: Bedside Glucose 106 mg/dL (70-110)
--- NOTE | 2018-03-20 08:08 | NURSING ---
staff call to room at 0738. pt had a syncopal episode after walking to bathroom and sitting down in recliner. 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 upon staff entry to room after staff call, pt is pale but alert and oriented x3 with appropriate neuro responses. vital signs obtained with HR 79, O2 93%, respirations 17, and BP 187/48. blood sugar at 106. pt reports being very nauseated and then everything went black for a few moments. pt is currently resting comfortably in recliner with ice chips and cool cloth to forehead. will continue to monitor. notified and new orders placed.
--- NOTE | 2018-03-20 10:00 | CASEMGMT ---
Addendum entered by Mary Marrero 03/20/18 15:06: Green sheet on chart. SW completed convalescent 7000 in HENS. SW placed green sheet, transportation form and convalescent 7000 on pt's chart. Original Note: Social Work Note Physician informed this worker that she doesn't feel safe discharging pt home as pt lives alone. Physician states pt is agreeable to SNF. SW met with pt. SW introduced self and role at [facility]. Pt states that she would like TCU at [facility]. SW informed pt that at this time TCU doesn't have any beds. Pt states she would like to go to [facility] then. SW explained referral process and that pt will need to be here until Friday for Medicare to pay for pt to go to SNF. Pt states understanding. SW faxed referral to Sonia at [facility]. Sonia is able to accept. Plan: [facility] Friday Mary Marrero CUSTOMER EXPERIENCE SPECIALIST, WELFARE SPECIALIST
[2018-03-20] MEDS: Metoclopramide 10 MG/2 ML Vial 2.5 MG IV (10:02)
[2018-03-20] MEDS: Ketorolac 15 MG/ML Vial IV ×2 (10:02→19:10)
[2018-03-20 10:58] VITALS: O2SAT 95
--- NOTE | 2018-03-20 11:49 | PCM.PN.HOSP ---
Patient Problems: Active and Suspected Problems (Last Reviewed 09/18/17 @ 13:02 by Evin Mora MD) Multiple fractures of ribs, left side, initial encounter for closed fracture (Acute) Subjective: Patient seen and examined. She had a near-syncopal episode today when she got up to go to the bathroom. She denies any fever, chills, cough, chest pain, SOB, abdominal pain, diarrhea or vomiting. She did admit to lightheadeness and dizziness when she got up to go the bathroom, which resulted in the near syncopal episode. Patient counselled again about going to an acute rehab facility in light of her repeat near syncope. She is now agreeable as she is worried about how she will be able to look after herself at home on her own. Vitals/I&O's: Vital Signs Temp Pulse Resp BP Pulse Ox 98.4 F 79 17 187/48 H 95 03/20/18 07:40 03/20/18 07:40 03/20/18 07:40 03/20/18 07:40 03/20/18 10:58 Oxygen Delivery Method Room Air Weight: 175 lb 4.28 oz Body Mass Index (BMI) 33.1 Finger Stick Blood Glucose 151 Intake and Output for Last 24 Hours 03/18/18 03/19/18 03/20/18 23:59 23:59 23:59 Intake Total 3115 / 3115 1400 / 1400 Output Total 500 / 500 700 / 700 Balance 2615 / 2615 700 / 700 General: Alert, Oriented x3, Cooperative, No apparent distress HEENT: Atraumatic, PERRLA, EOMI, Normocephalic Oral: Moist Mucosa Neck: Supple, No JVD, Negative Carotid Bruits, Negative Hepatojugular Reflux, No Nodes Lungs: Clear to auscultation, Normal air movement, No rhonchi, No wheeze Cardiovascular: Regular rate, Regular Rhythm, Normal S1, Normal S2, No murmurs Abdomen: Bowel Sounds Present, Soft, Non Tender, Non-Distended, No Hepato-splenomegaly Extremities: No clubbing, No cyanosis, No edema, Capillary Refill Less than 3 Seconds Skin: No rashes, No breakdown Musculoskeletal: No Tenderness to Palpation of Joints or Extremities Lymphatic: No Cervical, Supraclavicular, or Inguinal Adenopathy Neurological: Cranial nerves II-XII grossly intact, Neuro grossly intact, Motor Exam 5/5 strength throughout Psych/Mental Status: Normal Affect, Appropriate, Alert and oriented to time, place, person, mood and affect Laboratory Results 03/20/18 07:00: PT 30.1 H, INR 2.9 03/20/18 07:00: WBC 6.1, RBC 3.23 L, Hgb 9.7 L, Hct 31.4 L, MCV 97.2, MCH 30.0, MCHC 30.9 L, RDW 12.8, RDW Differential 43.3, Plt Count 203, MPV 10.2, Immature Gran % (Auto) 0.200, Neut % (Auto) 67.4, Lymph % (Auto) 18.9 L, White % (Auto) 11.7 H, Eos % (Auto) 1.3, Baso % (Auto) 0.5, Absolute Neuts (auto) 4.1, Absolute Lymphs (auto) 1.15, Total Counted Not Reportable 03/20/18 07:00: Sodium 136, Potassium 4.3, Chloride 104, Carbon Dioxide 29.0, Anion Gap 3 L, BUN 17, Creatinine 0.76, Estim Creat Clear Calc 33.29, Est GFR (MDRD) Af Amer 94, Est GFR (MDRD) Non-Af 78, BUN/Creatinine Ratio 22.5 H, Glucose 94, Calcium 7.3 L 03/20/18 07:43: POC Glucose 106 Diagnostic Data Ribs w/Chest X-Ray 03/18/18 19:00 IMPRESSION: RIBS: Minimally displaced fractures are seen in the lateral aspects of the left fifth through eighth ribs. There may be a nondisplaced fracture in the lateral left fourth rib. CHEST: There is no evidence of pneumothorax or pleural effusion. 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 Electronically Signed: Jaja Ortiz MD at 20:30 EST Tel Direct: [phone], Service support , Current Medications Acetaminophen (Tylenol) 1,000 mg PO Q6H PRN PRN Reason: PAIN Last Admin: 03/19/18 18:28 Dose: 1,000 mg Al Hydroxide/Mg Hydroxide (Mylanta Ii) 30 ml PO Q6H PRN PRN PRN Reason: Gastric burning Last Admin: 03/19/18 07:33 Dose: 30 ml Atenolol (Tenormin (Beta Emily)) 50 mg PO HS [facility] Last Admin: 03/19/18 22:30 Dose: 50 mg Atenolol (Tenormin (Beta Emily)) 0 mg PO QAM [facility] Last Admin: 03/19/18 10:25 Dose: 25 mg Calcium/Vitamin D (Os-Bassam 500mg + D) 1 tablet PO BIDCM [facility] Last Admin: 03/19/18 17:20 Dose: Not Given Cholecalciferol (Vitamin D) 1,000 unit PO DAILY [facility] Last Admin: 03/19/18 10:27 Dose: Not Given Famotidine (Pepcid) 20 mg PO BID [facility] Last Admin: 03/19/18 22:30 Dose: 20 mg Sodium Chloride () 1,000 mls @ 100 mls/hr IV .Q10H [facility] Last Admin: 03/20/18 05:34 Dose: 100 mls/hr Ketorolac Tromethamine (Toradol) 15 mg IV Q6H PRN PRN PRN Reason: PAIN Stop: 03/25/18 08:05 Last Admin: 03/20/18 10:02 Dose: 15 mg Losartan Potassium (Cozaar) 100 mg PO DAILY [facility] Last Admin: 03/19/18 10:24 Dose: 100 mg Metoclopramide HCl (Reglan) 2.5 mg IV Q6H PRN PRN PRN Reason: NAUSEA Last Admin: 03/20/18 10:02 Dose: 2.5 mg Morphine Sulfate () 2 mg IV Q3H PRN PRN PRN Reason: SEVERE PAIN (6-10/10) Nutritional Formula (Lactose Free) (Ensure Enlive) 120 ml PO 4X/DAY [facility] Last Admin: 03/20/18 10:08 Dose: Not Given Ondansetron HCl (Zofran) 4 mg IV Q8H PRN PRN PRN Reason: NAUSEA Last Admin: 03/20/18 05:34 Dose: 4 mg Polyethylene Glycol (Miralax) 17 gm PO DAILY [facility] Last Admin: 03/19/18 10:24 Dose: 17 gm Psyllium Hydrophilic Mucilloid (Metamucil) 1 packet PO DAILY PRN PRN PRN Reason: CONSTIPATION Senna/Docusate Sodium (Senokot-S, Nafisa-Colace) 2 tablet PO BID PRN PRN PRN Reason: contipation Sodium Chloride () 5 - 30 ml IV UD PRN PRN Reason: SALINE FLUSH Warfarin Sodium (Coumadin (Pbkc)) 4 mg PO DAILY@1700 [facility]; Protocol Last Admin: 03/19/18 17:20 Dose: 4 mg Zolpidem Tartrate (Ambien (Generic)) 5 mg PO QHS PRN PRN PRN Reason: INSOMNIA Medical Necessity - Tobacco Use Smoking Status: Never smoker Assessment/Plan All Active Problems (Last Reviewed 09/18/17 @ 13:02 by Evin Mora MD) Multiple fractures of ribs, left side, initial encounter for closed fracture (Acute) 1. Left 5th-8th rib fractures due to mechanical fall Pain fairly well controlled. IV morphine as needed PT OT on board. 2. Near syncope Had a near syncopal episode this morning when she got up to use the restroom. Admits to prodromal lightheadedness and dizziness. will check orthostatics hydrate with IVF NS fall precaution. PT/OT on board 3. MEchanical fall on calcium and vitamin D already patient now amenable to going to rehab facility in light of her near syncopal episode today and history of falls case management on board 4. A. fib: Rate controlled. On atenolol 25 mg. On aspirin and Coumadin. INR was therapeutic on admission. 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 patient counselled that she still has a risk of stroke with stopping of her Coumadin. However she is at a greater risk of intracranial bleed with a history of falls if she continues on the Coumadin. Cardiology okay with this. will resume aspirin 4. Hypertension: poorly controlled. BP ws 187/48 at time of review. On losartan and atenolol 5. History of thyroidectomy and parathyroidectomy: Stable DVT prophylaxis: Heparin Disposition: Awaiting placement in rehab facility. Code Visit Inpatient E&M: 44814 Subs Hosp L2
--- NOTE | 2018-03-20 11:54 | PN_ITS ---
Patient Problems: Active and Suspected Problems (Last Reviewed 09/18/17 @ 13:02 by Evin Mora MD) Multiple fractures of ribs, left side, initial encounter for closed fracture (Acute) Subjective: Patient seen and examined. She had a near-syncopal episode today when she got up to go to the bathroom. She denies any fever, chills, cough, chest pain, SOB, abdominal pain, diarrhea or vomiting. She did admit to lightheadeness and dizziness when she got up to go the bathroom, which resulted in the near syncopal episode. Patient counselled again about going to an acute rehab facility in light of her repeat near syncope. She is now agreeable as she is worried about how she will be able to look after herself at home on her own. Vitals/I&O's: Vital Signs Temp Pulse Resp BP Pulse Ox 98.4 F 79 17 187/48 H 95 03/20/18 07:40 03/20/18 07:40 03/20/18 07:40 03/20/18 07:40 03/20/18 10:58 Oxygen Delivery Method Room Air Weight: 175 lb 4.28 oz Body Mass Index (BMI) 33.1 Finger Stick Blood Glucose 151 Intake and Output for Last 24 Hours 03/18/18 03/19/18 03/20/18 23:59 23:59 23:59 Intake Total 3115 / 3115 1400 / 1400 Output Total 500 / 500 700 / 700 Balance 2615 / 2615 700 / 700 General: Alert, Oriented x3, Cooperative, No apparent distress HEENT: Atraumatic, PERRLA, EOMI, Normocephalic Oral: Moist Mucosa Neck: Supple, No JVD, Negative Carotid Bruits, Negative Hepatojugular Reflux, No Nodes Lungs: Clear to auscultation, Normal air movement, No rhonchi, No wheeze Cardiovascular: Regular rate, Regular Rhythm, Normal S1, Normal S2, No murmurs Abdomen: Bowel Sounds Present, Soft, Non Tender, Non-Distended, No Hepato- splenomegaly Extremities: No clubbing, No cyanosis, No edema, Capillary Refill Less than 3 Seconds Skin: No rashes, No breakdown Musculoskeletal: No Tenderness to Palpation of Joints or Extremities Lymphatic: No Cervical, Supraclavicular, or Inguinal Adenopathy Neurological: Cranial nerves II-XII grossly intact, Neuro grossly intact, Motor Exam 5/5 strength throughout Psych/Mental Status: Normal Affect, Appropriate, Alert and oriented to time, place, person, mood and affect Laboratory Results 03/20/18 07:00: PT 30.1 H, INR 2.9 03/20/18 07:00: WBC 6.1, RBC 3.23 L, Hgb 9.7 L, Hct 31.4 L, MCV 97.2, MCH 30.0, MCHC 30.9 L, RDW 12.8, RDW Differential 43.3, Plt Count 203, MPV 10.2, Immature Gran % (Auto) 0.200, Neut % (Auto) 67.4, Lymph % (Auto) 18.9 L, [place] % (Auto) 11.7 H, Eos % (Auto) 1.3, Baso % (Auto) 0.5, Absolute Neuts (auto) 4.1, Absolute Lymphs (auto) 1.15, Total Counted Not Reportable 03/20/18 07:00: Sodium 136, Potassium 4.3, Chloride 104, Carbon Dioxide 29.0, Anion Gap 3 L, BUN 17, Creatinine 0.76, Estim Creat Clear Calc 33.29, Est GFR (MDRD) Af Amer 94, Est GFR (MDRD) Non-Af 78, BUN/Creatinine Ratio 22.5 H, Glucose 94, Calcium 7.3 L 03/20/18 07:43: POC Glucose 106 Diagnostic Data Ribs w/Chest X-Ray 03/18/18 19:00 IMPRESSION: RIBS: Minimally displaced fractures are seen in the lateral aspects of the left fifth through eighth ribs. There may be a nondisplaced fracture in the lateral left fourth rib. CHEST: There is no evidence of pneumothorax or pleural effusion. 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 Electronically Signed: Jaja Ortiz MD at 20:30 EST Tel Direct: [phone], Service support , Current Medications Acetaminophen (Tylenol) 1,000 mg PO Q6H PRN PRN Reason: PAIN Last Admin: 03/19/18 18:28 Dose: 1,000 mg Al Hydroxide/Mg Hydroxide (Mylanta Ii) 30 ml PO Q6H PRN PRN PRN Reason: Gastric burning Last Admin: 03/19/18 07:33 Dose: 30 ml Atenolol (Tenormin (Beta Emily)) 50 mg PO HS [facility] Last Admin: 03/19/18 22:30 Dose: 50 mg Atenolol (Tenormin (Beta Emily)) 0 mg PO QAM [facility] Last Admin: 03/19/18 10:25 Dose: 25 mg Calcium/Vitamin D (Os-Bassam 500mg + D) 1 tablet PO BIDCM [facility] Last Admin: 03/19/18 17:20 Dose: Not Given Cholecalciferol (Vitamin D) 1,000 unit PO DAILY [facility] Last Admin: 03/19/18 10:27 Dose: Not Given Famotidine (Pepcid) 20 mg PO BID [facility] Last Admin: 03/19/18 22:30 Dose: 20 mg Sodium Chloride () 1,000 mls @ 100 mls/hr IV .Q10H [facility] Last Admin: 03/20/18 05:34 Dose: 100 mls/hr Ketorolac Tromethamine (Toradol) 15 mg IV Q6H PRN PRN PRN Reason: PAIN Stop: 03/25/18 08:05 Last Admin: 03/20/18 10:02 Dose: 15 mg Losartan Potassium (Cozaar) 100 mg PO DAILY [facility] Last Admin: 03/19/18 10:24 Dose: 100 mg Metoclopramide HCl (Reglan) 2.5 mg IV Q6H PRN PRN PRN Reason: NAUSEA Last Admin: 03/20/18 10:02 Dose: 2.5 mg Morphine Sulfate () 2 mg IV Q3H PRN PRN PRN Reason: SEVERE PAIN (6-10/10) Nutritional Formula (Lactose Free) (Ensure Enlive) 120 ml PO 4X/DAY [facility] Last Admin: 03/20/18 10:08 Dose: Not Given Ondansetron HCl (Zofran) 4 mg IV Q8H PRN PRN PRN Reason: NAUSEA Last Admin: 03/20/18 05:34 Dose: 4 mg Polyethylene Glycol (Miralax) 17 gm PO DAILY [facility] Last Admin: 03/19/18 10:24 Dose: 17 gm Psyllium Hydrophilic Mucilloid (Metamucil) 1 packet PO DAILY PRN PRN PRN Reason: CONSTIPATION Senna/Docusate Sodium (Senokot-S, Nafisa-Colace) 2 tablet PO BID PRN PRN PRN Reason: contipation Sodium Chloride () 5 - 30 ml IV UD PRN PRN Reason: SALINE FLUSH Warfarin Sodium (Coumadin (Pbkc)) 4 mg PO DAILY@1700 [facility]; Protocol Last Admin: 03/19/18 17:20 Dose: 4 mg Zolpidem Tartrate (Ambien (Generic)) 5 mg PO QHS PRN PRN PRN Reason: INSOMNIA Medical Necessity - Tobacco Use Smoking Status: Never smoker Assessment/Plan All Active Problems (Last Reviewed 09/18/17 @ 13:02 by Evin Mora MD) Multiple fractures of ribs, left side, initial encounter for closed fracture (Acute) 1. Left 5th-8th rib fractures due to mechanical fall * Pain fairly well controlled. * IV morphine as needed * PT OT on board. * 2. Near syncope * Had a near syncopal episode this morning when she got up to use the restroom. Admits to prodromal lightheadedness and dizziness. * will check orthostatics * hydrate with IVF NS * fall precaution. PT/OT on board * 3. MEchanical fall * on calcium and vitamin D already * patient now amenable to going to rehab facility in light of her near syncopal episode today and history of falls * case management on board * 4. A. fib: Rate controlled. * On atenolol 25 mg. * On aspirin and Coumadin. * INR was therapeutic on admission. 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 * patient counselled that she still has a risk of stroke with stopping of her Coumadin. However she is at a greater risk of intracranial bleed with a history of falls if she continues on the Coumadin. Cardiology okay with this. * will resume aspirin * 4. Hypertension: poorly controlled. BP ws 187/48 at time of review. On losartan and atenolol 5. History of thyroidectomy and parathyroidectomy: Stable DVT prophylaxis: Heparin Disposition: Awaiting placement in rehab facility. Code Visit Inpatient E&M: 44058 Subs Hosp L2
[2018-03-20 11:55] VITALS: BP 141/48; BP 159/61; BP 178/55; PULSE 66; PULSE 68; PULSE 71; RESP 16; TEMP 37.1; O2SAT 92
[2018-03-20] MEDS: Senna/Docusate Sodium 1 Tablet 2 TABLET PO (12:03)
[2018-03-20] MEDS: Famotidine 20 MG Tablet PO ×2 (12:03→21:15)
[2018-03-20] MEDS: Polyethylene Glycol 3350 17 GM PACKET PO (12:03)
[2018-03-20] MEDS: Losartan Potassium 100 MG Tablet PO (12:03)
[2018-03-20] MEDS: Acetaminophen 500 MG Tablet 1000 MG PO (12:06)
[2018-03-20] MEDS: Atenolol 25 MG Tablet PO (12:07)
[2018-03-20] MEDS: 0.9% NaCl Peripheral Flush Adult/Peds IV ×2 (16:21→19:11)
--- NOTE | 2018-03-20 16:30 | RAD_ITS ---
STUDY: X-RAY - ABDOMEN/PELVIS REASON FOR EXAM: Female, 82 years old. Nausea, abdominal pain TECHNIQUE: Two AP supine views of the abdomen and pelvis. COMPARISON: None. FINDINGS: Normal visualized lung bases. There is a large amount of right-sided colonic stool. There is no demonstrated free abdominal air. The visualized liver, spleen and kidneys are grossly normal in size and morphology. Normal soft tissue structures. There are degenerative changes of the right hip joint. RAD/Abdomen Single View (Portable) IMPRESSION: Large amount of stool in the right colon consistent with constipation. There is no evidence of ileus or obstruction. There are degenerative changes of the right hip joint. Electronically Signed: Rajendra Ponce MD at 16:45 EST , Service support ,
[2018-03-20 18:24] VITALS: BP 161/54; PULSE 68; RESP 18; TEMP 37.3; O2SAT 94
[2018-03-20 21:06] VITALS: BP 177/69; PULSE 71; RESP 18; TEMP 36.4; O2SAT 92
[2018-03-20] MEDS: Atenolol 50 MG Tablet PO (21:15)
[2018-03-21 02:53] VITALS: BP 149/42; PULSE 65; RESP 18; TEMP 36.5; O2SAT 96
[2018-03-21] MEDS: Ketorolac 15 MG/ML Vial IV ×3 (03:10→21:00)
[2018-03-21] MEDS: 0.9% Normal Saline 1,000 ML 100 ML IV (03:10)
[2018-03-21 07:22] VITALS: O2SAT 94
--- NOTE | 2018-03-21 08:54 | EKG12_ITS ---
Test Reason : CP Blood Pressure : / mmHG Vent. Rate : 071 BPM Atrial Rate : 071 BPM P-R Int : 166 ms QRS Dur : 092 ms QT Int : 386 ms P-R-T Axes : 038 011 028 degrees QTc Int : 419 ms Normal sinus rhythm with sinus arrhythmia Normal ECG When compared with ECG of 19-MAR-2018 00:30, MANUAL COMPARISON REQUIRED, DATA IS UNCONFIRMED Confirmed by JAHAIRA URBAN, OTONIEL ([id number]), news videotape editor JAVAD TIWARI ([id number]) on 03/25/2018 11:36:47 AM Referred By: Doyle Swenson Confirmed By:OTONIEL CAMPO MD
[2018-03-21 09:00] LABS: Absolute Lymphocyte Count 1.36 X10^3/ul (0.83-4.51); Absolute Neutrophil Count 4.2 X10^3/uL (2.0-7.7); Basophil# 0.02 X10^3/uL; Basophil% 0.3 % (0-1); Eosinophil# 0.11 X10^3/uL; Eosinophils% 1.7 % (0-5); Hematocrit 31.9 % (37-47); Hemoglobin 10.2 g/dl (12.0-15.0); Lymphocyte # 1.36 X10^3/ul (4.0); Lymphocyte % 21.2 % (19-41); Mean Corpuscular Hgb 30.8 pg (27.0-32.0); Mean Corpuscular Volume 96.4 fL (81-99); Mean Platelet Vol. 9.3 fl (6.2-12.0); Monocyte# 0.72 X10^3/uL; Monocyte% 11.2 % (0-10); Neutrophil # 4.19 X10^3/uL (2.7-7.7); Neutrophil % 65.4 % (47-70); Platelet Count 213 K/mm3 (150-450); RBC Distribution Width CV 12.6 % (11.6-14.6); RBC Distribution Width SD 42.8 fl (35.1-43.9); Red Blood Count 3.31 M/mm3 (4.2-5.4); White Blood Count 6.4 K/mm3 (4.4-11.0)
[2018-03-21 09:01] LABS: POSITIVE COUNT NO; POSITIVE DIFFERENTIAL NO; POSITIVE MORPHOLOGY NO
[2018-03-21 09:19] LABS: Anion Gap 7 (5-15); BUN 18 mg/dL (7-18); BUN/Creat Ratio 23.6 RATIO (10-20); Calcium,Total 7.2 mg/dL (8.5-10.1); Chloride 107 mmol/L (98-107); Creatinine, Serum 0.76 mg/dL (0.55-1.02); EST Glomerular Filtration Rate 77 mL/min (>60); Est Glom Filt Rate - Afr Amer 93 mL/min (>60); Estimated Creatinine Clearance 33.29 ml/min; Glucose 93 mg/dL (74-106); Potassium 4.7 mmol/L (3.5-5.1); Sodium Level 138 mmol/L (136-145)
[2018-03-21 10:25] VITALS: BP 148/47; PULSE 72; RESP 18; TEMP 36.8; O2SAT 96
[2018-03-21] MEDS: Senna/Docusate Sodium 1 Tablet 2 TABLET PO (10:26)
[2018-03-21] MEDS: Acetaminophen 500 MG Tablet 1000 MG PO ×2 (10:26→18:22)
[2018-03-21] MEDS: Famotidine 20 MG Tablet PO ×2 (10:26→20:59)
[2018-03-21] MEDS: Calcium Carb/Vitamin D 1 TABLET Tablet PO ×2 (10:26→18:23)
[2018-03-21] MEDS: Atenolol 25 MG Tablet PO (10:26)
[2018-03-21] MEDS: Polyethylene Glycol 3350 17 GM PACKET PO (10:26)
[2018-03-21] MEDS: Losartan Potassium 100 MG Tablet PO (10:27)
[2018-03-21] MEDS: Aspirin E.C. 81 MG Tablet PO (10:27)
--- NOTE | 2018-03-21 12:20 | PCM.PN.HOSP ---
Patient Problems: Active and Suspected Problems (Last Reviewed 09/18/17 @ 13:02 by Evin Mora MD) Multiple fractures of ribs, left side, initial encounter for closed fracture (Acute) Subjective: Patient seen and examined. She feels much better today and has no complaints. She is able to walk around with physical therapy and has no lightheadedness or dizziness. She denied any fever or chills, cough or chest pain, shortness of breath, abdominal pain, diarrhea or vomiting. 12 point review of systems otherwise negative. Labs and vitals reviewed. She is awaiting placement. Vitals/I&O's: Vital Signs Temp Pulse Resp BP Pulse Ox 98.3 F 72 18 148/47 H 96 03/21/18 10:25 03/21/18 10:25 03/21/18 10:25 03/21/18 10:25 03/21/18 10:25 Oxygen Delivery Method Room Air Weight: 175 lb 4.28 oz Body Mass Index (BMI) 33.1 Finger Stick Blood Glucose 151 Orthostatic Vital Signs Start: 03/20/18 13:55 Freq: q24h Status: Active Protocol: Activity Type Activity Date Activity User E-Sign Co-Sign Detail Recorded Client Recorded Date Recorded By Document 03/20/18 11:55 [facility] [id number] 03/20/18 13:57 [facility] 03/20/18 11:55 Orthostatic Vitals Standing -Blood Pressure (90/60-120/80) 178/55 H -Extremity Use Right Arm -Pulse Rate (60-100) 71 Sitting -Blood Pressure (90/60-120/80) 159/61 H -Extremity Use Right Arm -Pulse Rate (60-100) 68 Lying -Blood Pressure (90/60-120/80) 141/48 H -Extremity Use Right Arm -Pulse Rate (60-100) 66 Intake and Output for Last 24 Hours 03/19/18 03/20/18 03/21/18 23:59 23:59 23:59 Intake Total 3115 / 3115 2961 / 2961 1628 / 1628 Output Total 500 / 500 950 / 950 200 / 200 Balance 2615 / 2615 2010 1428 / 1428 General: Alert, Oriented x3, Cooperative, No apparent distress HEENT: Atraumatic, PERRLA, EOMI, Normocephalic Oral: Moist Mucosa Neck: Supple, No JVD, Negative Carotid Bruits Lungs: Normal air movement, No rhonchi, No wheeze, - - few crackles bibasally Cardiovascular: Regular rate, Regular Rhythm, Normal S1, Normal S2, No murmurs Abdomen: Bowel Sounds Present, Soft, Non Tender, Non-Distended, No Hepato-splenomegaly Extremities: No clubbing, No cyanosis, No edema, Capillary Refill Less than 3 Seconds Skin: No rashes, No breakdown Musculoskeletal: No Tenderness to Palpation of Joints or Extremities Lymphatic: No Cervical, Supraclavicular, or Inguinal Adenopathy Neurological: Cranial nerves II-XII grossly intact, Neuro grossly intact, Motor Exam 5/5 strength throughout Psych/Mental Status: Normal Affect, Appropriate, Alert and oriented to time, place, person, mood and affect Laboratory Results 03/21/18 08:53: WBC 6.4, RBC 3.31 L, Hgb 10.2 L, Hct 31.9 L, MCV 96.4, MCH 30.8, MCHC 32.0, RDW 12.6, RDW Differential 42.8, Plt Count 213, MPV 9.3, Immature Gran % (Auto) 0.200, Neut % (Auto) 65.4, Lymph % (Auto) 21.2, [place] % (Auto) 11.2 H, Eos % (Auto) 1.7, Baso % (Auto) 0.3, Absolute Neuts (auto) 4.2, Absolute Lymphs (auto) 1.36, Total Counted Not Reportable 03/21/18 08:53: Sodium Cancelled, Potassium Cancelled, Chloride Cancelled, Carbon Dioxide Cancelled, Anion Gap Cancelled, BUN Cancelled, Creatinine Cancelled, Estim Creat Clear Calc Cancelled, Est GFR (MDRD) Af Amer Cancelled, Est GFR (MDRD) Non-Af Cancelled, BUN/Creatinine Ratio Cancelled, Glucose Cancelled, Calcium Cancelled 03/21/18 08:53: Sodium 138, Potassium 4.7, Chloride 107, Carbon Dioxide 24.0, Anion Gap 7, BUN 18, Creatinine 0.76, Estim Creat Clear Calc 33.29, Est GFR (MDRD) Af Amer 93, Est GFR (MDRD) Non-Af 77, BUN/Creatinine Ratio 23.6 H, Glucose 93, Calcium 7.2 L, Troponin I < 0.015 Diagnostic Data Ribs w/Chest X-Ray 03/18/18 19:00 IMPRESSION: RIBS: Minimally displaced fractures are seen in the lateral aspects of the left fifth through eighth ribs. There may be a nondisplaced fracture in the lateral left fourth rib. CHEST: There is no evidence of pneumothorax or pleural effusion. 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 Electronically Signed: Jaja Ortiz MD at 20:30 EST Tel Direct: [phone], Service support , KUB X-Ray 03/20/18 16:30 IMPRESSION: Large amount of stool in the right colon consistent with constipation. There is no evidence of ileus or obstruction. There are degenerative changes of the right hip joint. Electronically Signed: Rajendra Ponce MD at 16:45 EST , Service support , Current Medications Acetaminophen (Tylenol) 1,000 mg PO Q6H PRN PRN Reason: PAIN Last Admin: 03/21/18 10:26 Dose: 1,000 mg Al Hydroxide/Mg Hydroxide (Mylanta Ii) 30 ml PO Q6H PRN PRN PRN Reason: Gastric burning Last Admin: 03/19/18 07:33 Dose: 30 ml Aspirin (Ecotrin) 81 mg PO DAILY@0800 [facility] Last Admin: 03/21/18 10:27 Dose: 81 mg Atenolol (Tenormin (Beta Emily)) 50 mg PO HS [facility] Last Admin: 03/20/18 21:15 Dose: 50 mg Atenolol (Tenormin (Beta Emily)) 0 mg PO QAM [facility] Last Admin: 03/21/18 10:26 Dose: 25 mg Calcium/Vitamin D (Os-Bassam 500mg + D) [facility] Last Admin: 03/21/18 10:26 Dose: 1 tablet Cholecalciferol (Vitamin D) 1,000 unit PO DAILY [facility] Last Admin: 03/21/18 10:26 Dose: 1,000 unit Famotidine (Pepcid) 20 mg PO BID [facility] Last Admin: 03/21/18 10:26 Dose: 20 mg Sodium Chloride () 1,000 mls @ 100 mls/hr IV .Q10H [facility] Last Admin: 03/21/18 03:10 Dose: 100 mls/hr Ketorolac Tromethamine (Toradol) 15 mg IV Q6H PRN PRN PRN Reason: PAIN Stop: 03/25/18 08:05 Last Admin: 03/21/18 03:10 Dose: 15 mg Losartan Potassium (Cozaar) 100 mg PO DAILY [facility] Last Admin: 03/21/18 10:27 Dose: 100 mg Metoclopramide HCl (Reglan) 2.5 mg IV Q6H PRN PRN PRN Reason: NAUSEA Last Admin: 03/20/18 10:02 Dose: 2.5 mg Morphine Sulfate () 2 mg IV Q3H PRN PRN PRN Reason: SEVERE PAIN (-02/18) Nutritional Formula (Lactose Free) (Ensure Enlive) 120 ml PO 4X/DAY [facility] Last Admin: 03/21/18 10:26 Dose: 120 ml Ondansetron HCl (Zofran) 4 mg IV Q8H PRN PRN PRN Reason: NAUSEA Last Admin: 03/20/18 15:16 Dose: 4 mg Polyethylene Glycol (Miralax) 17 gm PO DAILY [facility] Last Admin: 03/21/18 10:26 Dose: 17 gm Psyllium Hydrophilic Mucilloid (Metamucil) 1 packet PO DAILY PRN PRN PRN Reason: CONSTIPATION Senna/Docusate Sodium (Senokot-S, Nafisa-Colace) 2 tablet PO BID PRN PRN PRN Reason: contipation Last Admin: 03/21/18 10:26 Dose: 2 tablet Sodium Chloride () 5 - 30 ml IV UD PRN PRN Reason: SALINE FLUSH Last Admin: 03/20/18 19:11 Dose: 10 ml Warfarin Sodium (Coumadin (Pbkc)) 4 mg PO DAILY@1700 [facility]; Protocol Last Admin: 03/19/18 17:20 Dose: 4 mg Zolpidem Tartrate (Ambien (Generic)) 5 mg PO QHS PRN PRN PRN Reason: INSOMNIA Medical Necessity - Tobacco Use Smoking Status: Never smoker Assessment/Plan All Active Problems (Last Reviewed 09/18/17 @ 13:02 by Evin Mora MD) Multiple fractures of ribs, left side, initial encounter for closed fracture (Acute) 1. Left 5th-8th rib fractures due to mechanical fall Pain fairly well controlled. IV morphine as needed PT OT on board. 2. Near syncope hasnt recurred since yesterday able to ambulate with PT/OT orthostatics were negative PT/OT on board fall precautions 3. MEchanical fall on calcium and vitamin D PT/OT on board; fall precautions 4. A. fib: Rate controlled. On atenolol 25 mg daily On aspirin and Coumadin. INR was therapeutic on admission. per discussion with cardiology, coumadin Dced. on aspirin 81mg daily 5. Constipation: was complaining of nausea and vomiting. KUB done showed large amount of stool in right colon. WIll give dulcolax suppository, which is what she prefers. 6. Hypertension: control is improving. Systolic runs berween 140s to 170s systolic. On losartan 100mg daily and atenolol 50mg qhs. Will continue current dose, as BP is mostly in the 140s and 150s 7. History of thyroidectomy and parathyroidectomy: Stable DVT prophylaxis: on coumadin. Coumadin dced. SCDs Disposition: Awaiting placement in rehab facility. For dc to [facility] tomorrow Code Visit Inpatient E&M: 88386 Subs Hosp L2
--- NOTE | 2018-03-21 12:28 | PN_ITS ---
Patient Problems: Active and Suspected Problems (Last Reviewed 09/18/17 @ 13:02 by Evin Mora MD) Multiple fractures of ribs, left side, initial encounter for closed fracture (Acute) Subjective: Patient seen and examined. She feels much better today and has no complaints. She is able to walk around with physical therapy and has no lightheadedness or dizziness. She denied any fever or chills, cough or chest pain, shortness of breath, abdominal pain, diarrhea or vomiting. 12 point review of systems otherwise negative. Labs and vitals reviewed. She is awaiting placement. Vitals/I&O's: Vital Signs Temp Pulse Resp BP Pulse Ox 98.3 F 72 18 148/47 H 96 03/21/18 10:25 03/21/18 10:25 03/21/18 10:25 03/21/18 10:25 03/21/18 10:25 Oxygen Delivery Method Room Air Weight: 175 lb 4.28 oz Body Mass Index (BMI) 33.1 Finger Stick Blood Glucose 151 Orthostatic Vital Signs Start: 03/20/18 13:55 Freq: q24h Status: Active Protocol: Activity Type Activity Date Activity User E-Sign Co-Sign Detail Recorded Client Recorded Date Recorded By Document 03/20/18 11:55 [facility] [id number] 03/20/18 13:57 [facility] 03/20/18 11:55 Orthostatic Vitals Standing -Blood Pressure (90/60-120/80) 178/55 H -Extremity Use Right Arm -Pulse Rate (60-100) 71 Sitting -Blood Pressure (90/60-120/80) 159/61 H -Extremity Use Right Arm -Pulse Rate (60-100) 68 Lying -Blood Pressure (90/60-120/80) 141/48 H -Extremity Use Right Arm -Pulse Rate (60-100) 66 Intake and Output for Last 24 Hours 03/19/18 03/20/18 03/21/18 23:59 23:59 23:59 Intake Total 3115 / 3115 2961 / 2961 1628 / 1628 Output Total 500 / 500 950 / 950 200 / 200 Balance 2615 / 2615 2010 1428 / 1428 General: Alert, Oriented x3, Cooperative, No apparent distress HEENT: Atraumatic, PERRLA, EOMI, Normocephalic Oral: Moist Mucosa Neck: Supple, No JVD, Negative Carotid Bruits Lungs: Normal air movement, No rhonchi, No wheeze, - - few crackles bibasally Cardiovascular: Regular rate, Regular Rhythm, Normal S1, Normal S2, No murmurs Abdomen: Bowel Sounds Present, Soft, Non Tender, Non-Distended, No Hepato- splenomegaly Extremities: No clubbing, No cyanosis, No edema, Capillary Refill Less than 3 Seconds Skin: No rashes, No breakdown Musculoskeletal: No Tenderness to Palpation of Joints or Extremities Lymphatic: No Cervical, Supraclavicular, or Inguinal Adenopathy Neurological: Cranial nerves II-XII grossly intact, Neuro grossly intact, Motor Exam 5/5 strength throughout Psych/Mental Status: Normal Affect, Appropriate, Alert and oriented to time, place, person, mood and affect Laboratory Results 03/21/18 08:53: WBC 6.4, RBC 3.31 L, Hgb 10.2 L, Hct 31.9 L, MCV 96.4, MCH 30.8, MCHC 32.0, RDW 12.6, RDW Differential 42.8, Plt Count 213, MPV 9.3, Immature Gran % (Auto) 0.200, Neut % (Auto) 65.4, Lymph % (Auto) 21.2, [place] % (Auto) 11.2 H, Eos % (Auto) 1.7, Baso % (Auto) 0.3, Absolute Neuts (auto) 4.2, Absolute Lymphs (auto) 1.36, Total Counted Not Reportable 03/21/18 08:53: Sodium Cancelled, Potassium Cancelled, Chloride Cancelled, Carbon Dioxide Cancelled, Anion Gap Cancelled, BUN Cancelled, Creatinine Cancelled, Estim Creat Clear Calc Cancelled, Est GFR (MDRD) Af Amer Cancelled, Est GFR (MDRD) Non-Af Cancelled, BUN/Creatinine Ratio Cancelled, Glucose Cancelled, Calcium Cancelled 03/21/18 08:53: Sodium 138, Potassium 4.7, Chloride 107, Carbon Dioxide 24.0, Anion Gap 7, BUN 18, Creatinine 0.76, Estim Creat Clear Calc 33.29, Est GFR (MDRD) Af Amer 93, Est GFR (MDRD) Non-Af 77, BUN/Creatinine Ratio 23.6 H, Glucose 93, Calcium 7.2 L, Troponin I < 0.015 Diagnostic Data Ribs w/Chest X-Ray 03/18/18 19:00 IMPRESSION: RIBS: Minimally displaced fractures are seen in the lateral aspects of the left fifth through eighth ribs. There may be a nondisplaced fracture in the lateral left fourth rib. CHEST: There is no evidence of pneumothorax or pleural effusion. 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 Electronically Signed: Jaja Ortiz MD at 20:30 EST Tel Direct: [phone], Service support , KUB X-Ray 03/20/18 16:30 IMPRESSION: Large amount of stool in the right colon consistent with constipation. There is no evidence of ileus or obstruction. There are degenerative changes of the right hip joint. Electronically Signed: Rajendra Ponce MD at 16:45 EST , Service support , Current Medications Acetaminophen (Tylenol) 1,000 mg PO Q6H PRN PRN Reason: PAIN Last Admin: 03/21/18 10:26 Dose: 1,000 mg Al Hydroxide/Mg Hydroxide (Mylanta Ii) 30 ml PO Q6H PRN PRN PRN Reason: Gastric burning Last Admin: 03/19/18 07:33 Dose: 30 ml Aspirin (Ecotrin) 81 mg PO DAILY@0800 [facility] Last Admin: 03/21/18 10:27 Dose: 81 mg Atenolol (Tenormin (Beta Emily)) 50 mg PO HS [facility] Last Admin: 03/20/18 21:15 Dose: 50 mg Atenolol (Tenormin (Beta Emily)) 0 mg PO QAM [facility] Last Admin: 03/21/18 10:26 Dose: 25 mg Calcium/Vitamin D ([facility]Bassam [facility] + D) [facility] Last Admin: 03/21/18 10:26 Dose: 1 tablet Cholecalciferol (Vitamin D) 1,000 unit PO DAILY [facility] Last Admin: 03/21/18 10:26 Dose: 1,000 unit Famotidine (Pepcid) 20 mg PO BID [facility] Last Admin: 03/21/18 10:26 Dose: 20 mg Sodium Chloride () 1,000 mls @ 100 mls/hr IV .Q10H [facility] Last Admin: 03/21/18 03:10 Dose: 100 mls/hr Ketorolac Tromethamine (Toradol) 15 mg IV Q6H PRN PRN PRN Reason: PAIN Stop: 03/25/18 08:05 Last Admin: 03/21/18 03:10 Dose: 15 mg Losartan Potassium (Cozaar) 100 mg PO DAILY [facility] Last Admin: 03/21/18 10:27 Dose: 100 mg Metoclopramide HCl (Reglan) 2.5 mg IV Q6H PRN PRN PRN Reason: NAUSEA Last Admin: 03/20/18 10:02 Dose: 2.5 mg Morphine Sulfate () 2 mg IV Q3H PRN PRN PRN Reason: SEVERE PAIN (-02/18) Nutritional Formula (Lactose Free) (Ensure Enlive) 120 ml PO 4X/DAY [facility] Last Admin: 03/21/18 10:26 Dose: 120 ml Ondansetron HCl (Zofran) 4 mg IV Q8H PRN PRN PRN Reason: NAUSEA Last Admin: 03/20/18 15:16 Dose: 4 mg Polyethylene Glycol (Miralax) 17 gm PO DAILY [facility] Last Admin: 03/21/18 10:26 Dose: 17 gm Psyllium Hydrophilic Mucilloid (Metamucil) 1 packet PO DAILY PRN PRN PRN Reason: CONSTIPATION Senna/Docusate Sodium (Senokot-S, Nafisa-Colace) 2 tablet PO BID PRN PRN PRN Reason: contipation Last Admin: 03/21/18 10:26 Dose: 2 tablet Sodium Chloride () 5 - 30 ml IV UD PRN PRN Reason: SALINE FLUSH Last Admin: 03/20/18 19:11 Dose: 10 ml Warfarin Sodium (Coumadin (Pbkc)) 4 mg PO DAILY@1700 [facility]; Protocol Last Admin: 03/19/18 17:20 Dose: 4 mg Zolpidem Tartrate (Ambien (Generic)) 5 mg PO QHS PRN PRN PRN Reason: INSOMNIA Medical Necessity - Tobacco Use Smoking Status: Never smoker Assessment/Plan All Active Problems (Last Reviewed 09/18/17 @ 13:02 by Evin Mora MD) Multiple fractures of ribs, left side, initial encounter for closed fracture (Acute) 1. Left 5th-8th rib fractures due to mechanical fall * Pain fairly well controlled. * IV morphine as needed * PT OT on board. * 2. Near syncope * hasnt recurred since yesterday * able to ambulate with PT/OT * orthostatics were negative * PT/OT on board * fall precautions * 3. MEchanical fall * on calcium and vitamin D * PT/OT on board; fall precautions * 4. A. fib: Rate controlled. * On atenolol 25 mg daily * On aspirin and Coumadin. * INR was therapeutic on admission. * per discussion with cardiology, coumadin Dced. * on aspirin 81mg daily * 5. Constipation: * was complaining of nausea and vomiting. * KUB done showed large amount of stool in right colon. * WIll give dulcolax suppository, which is what she prefers. 6. Hypertension: * control is improving. * Systolic runs berween 140s to 170s systolic. * On losartan 100mg daily and atenolol 50mg qhs. * Will continue current dose, as BP is mostly in the 140s and 150s 7. History of thyroidectomy and parathyroidectomy: Stable DVT prophylaxis: on coumadin. Coumadin dced. SCDs Disposition: Awaiting placement in rehab facility. For dc to [facility] tomow Code Visit Inpatient E&M: 62121 Subs Hosp L2
[2018-03-21] MEDS: 0.9% NaCl Peripheral Flush Adult/Peds IV ×3 (12:36→21:00)
[2018-03-21] MEDS: Bisacodyl 10 MG Suppository RECTAL (18:22)
[2018-03-21 18:29] VITALS: BP 163/60; PULSE 71; RESP 18; TEMP 36.8; O2SAT 95
[2018-03-21] MEDS: Atenolol 50 MG Tablet PO (21:00)
[2018-03-21 22:00] VITALS: PULSE 63
[2018-03-21 22:30] VITALS: BP 148/44; PULSE 63; RESP 16; TEMP 37.2; O2SAT 95
[2018-03-22] MEDS: 0.9% NaCl Peripheral Flush Adult/Peds IV (06:08)
[2018-03-22] MEDS: Ketorolac 15 MG/ML Vial IV ×2 (06:08→12:29)
[2018-03-22 11:11] VITALS: BP 172/45; PULSE 70; RESP 20; TEMP 36.6; O2SAT 98
[2018-03-22] MEDS: Calcium Carb/Vitamin D 1 TABLET Tablet PO (11:15)
[2018-03-22] MEDS: Atenolol 25 MG Tablet PO ×2 (11:15→12:35)
[2018-03-22] MEDS: Famotidine 20 MG Tablet PO (11:16)
[2018-03-22] MEDS: Aspirin E.C. 81 MG Tablet PO (11:17)
[2018-03-22] MEDS: Losartan Potassium 100 MG Tablet PO (11:17)
--- NOTE | 2018-03-22 11:19 | PCM.TXEXTCAR ---
- Diet 03/18/18 23:17 Diet: Cardiac/Low Cholesterol Dietary Modifications:: Gluten Free Type of Dietary Supplement:: Ensure Complete - Routine Orders/Code Status Enema Type: Fleetz Enema Frequency: Daily PRN Suppository Type: Dulcolax 10mg Suppository Frequency: Daily PRN O2 Frequency: PRN Keep PO Greater than or Equal to (%): 92 - Therapies Weight Bearing: Weight bearing as tolerated Physical Therapy: Eval and Treat Occupational Therapy: Eval and Treat - Allergies/Procedures Done in Hospital Allergies/Adverse Reactions: Allergies beet [Beet] Allergy (Verified 03/18/18 18:25) Hives levofloxacin [From Levaquin] Allergy (Verified 03/18/18 18:25) Unknown Penicillins Allergy (Verified 03/18/18 18:25) Unknown wheat Allergy (Verified 03/18/18 18:25) Hives gabapentin [From Neurontin] Adverse Reaction (Verified 03/18/18 18:25) Other meloxicam [From Mobic] Adverse Reaction (Verified 03/18/18 18:25) Other oxycodone [From OxyIR] Adverse Reaction (Verified 03/20/18 08:08) Nausea risedronate sodium [From Actonel] Adverse Reaction (Verified 03/18/18 18:25) Other CANTALOPE Allergy (Uncoded 05/18/17 13:52) Hives CONCENTRATES Allergy (Uncoded 05/18/17 13:52) Hives EGGPLANT Allergy (Uncoded 05/18/17 13:52) Hives MOLD Allergy (Uncoded 05/18/17 13:52) Unknown PROCESSED FOODS Allergy (Uncoded 05/18/17 13:52) Hives Procedures: None - Type of Care/Length of Stay Estimated LOS: Convalescent Care Less Than 30 days Type of Care Needed: Skilled Rehab Potential: Fair Prognosis: Fair - Additional Orders/Day of Discharge Day of Discharge: 03/22/18 - Dietary and Speech Recommendations Dietitian Recommendations/Changes: Rec diet change to regular, gluten free. Will provide Ensure Enlive 120 mL 4x/day w/ medpass. - Follow Up Care Primary Care Physician: Doyle Swenson MD [Primary Care Provider] - 1 Week Please follow up with your Primary Care Physician in: 1 week Please Follow Up With: Evin Mora MD When: 1-2 weeks
--- NOTE | 2018-03-22 11:23 | PCM.DC.SUM ---
Discharge Date and Diagnosis - Problem List Patient Problems: Active and Suspected Problems (Last Reviewed 09/18/17 @ 13:02 by Evin Mora MD) Multiple fractures of ribs, left side, initial encounter for closed fracture (Acute) Date of Admission: 03/18/18 Date of Discharge: 03/22/18 - Primary Discharge Diagnosis Active and Suspected Problems (Last Reviewed 09/18/17 @ 13:02 by Evin Mora MD) Multiple fractures of ribs, left side, initial encounter for closed fracture (Acute) mechanical fall - Secondary Discharge Diagnosis Chronic Problems (Last Reviewed 09/18/17 @ 13:02 by Evin Mora MD) Chronic a-fib (Chronic) Hypertensive emergency (Chronic) Headache (Chronic) 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 There may be a nondisplaced fracture in the lateral left fourth rib. CHEST: There is no evidence of pneumothorax or pleural effusion. 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 Electronically Signed: Jaja Ortiz MD at 20:30 EST Tel Direct: [phone], Service support , KUB X-Ray 03/20/18 16:30 IMPRESSION: Large amount of stool in the right colon consistent with constipation. There is no evidence of ileus or obstruction. There are degenerative changes of the right hip joint. Electronically Signed: Rajendra Ponce MD at 16:45 EST , Service support , Operations: None Procedures: None Summary of Care Provided: The patient is a 82 year old F with an extensive past medical history as listed below. She was admitted with a complaint of mechanical fall as she was reaching for something in her bathroom. She fell on her left flank and upper back he did not lose consciousness and had no assisted lightheadedness or dizziness. X-rays done in the ED showed minimally displaced fractures of the lateral aspect of the left fifth to eighth rib and a possible nondisplaced fracture in the she was admitted to be managed for rib fractures due to mechanical fall. Patient remained stable. She had a near syncopal episode was on admission which was thought to be due to orthostatic hypotension she was resuscitated with IV fluid. This resolved and patient remained stable. Initially she wanted to go home but after a near syncopal episode patient was amenable to going to a skilled rehab facility for intensive physical therapy. During this admission, patient's Coumadin was stopped on account of recurrent falls whilst at home due to risk of intracranial bleed with a fall. This was discussed with her nozzle cement sprayer helper Dr. Mora. She had been on Coumadin on account of chronic A. fib. Her blood pressure remained poorly controlled and so her atenolol was increased to 50 mg twice daily. Patient remained stable and was discharged to [facility] on 03/22/18. She is follow-up with her primary care doctor and nozzle cement sprayer helper. Patient seen and examined prior to discharge. She had no complaints and felt well. She denied any fever or chills, cough or chest pain, shortness of breath, abdominal pain, any diarrhea vomiting. 12 point review systems otherwise negative. Labs and vitals reviewed. Home medications reviewed and reconciled. Examination Vitals: Vital Signs Height 5 ft 1 in Weight: 175 lb 4.28 oz Weight in Pounds 175.3 lbs Pulse Ox 98 Temperature 97.9 F Pulse Rate [Standing] 71 Pulse Rate [Sitting] 68 Pulse Rate [Lying] 66 Pulse Rate 70 Respiratory Rate 20 Blood Pressure [Standing] 178/55 Blood Pressure [Sitting] 159/61 Blood Pressure [Lying] 141/48 Blood Pressure [BP] 157/65 Blood Pressure 172/45 Blood Pressure Position [BP] Semi-Fowlers Blood Pressure Position Sitting General: Alert, Oriented x3, Cooperative, No apparent distress HEENT: Atraumatic, PERRLA, EOMI, Normocephalic Oral: Moist Mucosa Neck: Supple, No JVD, Negative Carotid Bruits Lungs: Normal air movement, No rhonchi, No wheeze, - - few crackles bibasally Cardiovascular: Regular rate, Regular Rhythm, Normal S1, Normal S2, No murmurs Abdomen: Bowel Sounds Present, Soft, Non Tender, Non-Distended, No Hepato-splenomegaly Extremities: No clubbing, No cyanosis, No edema, Capillary Refill Less than 3 Seconds Skin: No rashes, No breakdown Musculoskeletal: No Tenderness to Palpation of Joints or Extremities Lymphatic: No Cervical, Supraclavicular, or Inguinal Adenopathy Neurological: Cranial nerves II-XII grossly intact, Neuro grossly intact, Motor Exam 5/5 strength throughout Psych/Mental Status: Normal Affect, Appropriate, Alert and oriented to time, place, person, mood and affect Plan as discussed above. Patient was given a prescription for a wheeled walker at her request. [] Patient Problems: Active and Suspected Problems (Last Reviewed 09/18/17 @ 13:02 by Evin Mora MD) Multiple fractures of ribs, left side, initial encounter for closed fracture (Acute) - Physical Exam Vital Signs Temp Pulse Resp BP Pulse Ox 97.9 F 70 20 H 172/45 H 98 03/22/18 11:11 03/22/18 11:11 03/22/18 11:11 03/22/18 11:11 03/22/18 11:11 Oxygen Delivery Method Room Air Weight: 175 lb 4.28 oz Body Mass Index (BMI) 33.1 Finger Stick Blood Glucose 151 Orthostatic Vital Signs Start: 03/20/18 13:55 Freq: q24h Status: Active Protocol: Activity Type Activity Date Activity User E-Sign Co-Sign Detail Recorded Client Recorded Date Recorded By Document 03/20/18 11:55 [facility] [id number] 03/20/18 13:57 [facility] 03/20/18 11:55 Orthostatic Vitals Standing -Blood Pressure (90/60-120/80 mm Hg) 178/55 H -Extremity Use Right Arm -Pulse Rate (60-100 beats/min) 71 Sitting -Blood Pressure (90/60-120/80 mm Hg) 159/61 H -Extremity Use Right Arm -Pulse Rate (60-100 beats/min) 68 Lying -Blood Pressure (90/60-120/80 mm Hg) 141/48 H -Extremity Use Right Arm -Pulse Rate (60-100 beats/min) 66 Intake and Output for Last 24 Hours 11/09/18 11/10/18 11/11/18 23:59 23:59 23:59 Intake Total 2961 / 2961 2696 / 2696 600 / 600 Output Total 950 / 950 400 / 400 Balance 2010 2296 / 2296 600 / 600 Discharge Diet: Low fat/ Low Cholesterol Weight Bearing Status: Weight bearing as tolerated Call your doctor if you observe: Shortness of breath, Dizziness, Fainting spells, Chest pain, Uncontrolled pain Home Medications: Medications to take at Discharge Calcium Carb/Vitamin D [Caltrate-600 With Vit D Tab] 1 tab PO BID 02/26/13 Aspirin E.C. [Ecotrin] 81 mg PO DAILY@0800 #60 tab 07/29/13 Cholecalciferol (Vitamin D3) [Vitamin D3] 1,000 unit PO DAILY 12/25/16 Acetaminophen [Tylenol Extra Strength] 1,000 mg PO Q6H PRN 05/18/17 Losartan Potassium 100 mg PO DAILY 03/18/18 Atenolol 50 mg PO BID #60 tab 03/22/18 Following Prescrptions Were Given to Patient: Atenolol 50 mg PO BID #60 tab Other Amb Orders: Wheeled Walker Location: None Selected Primary Care Physician: Doyle Swenson MD [Primary Care Provider] - 1 Week Please follow up with your Primary Care Physician in: 1 week Please Follow Up With: Evin Mora MD When: 1-2 weeks Patient Instructions: ED Mechanical Fall, ED Fx Rib Disposition: [facility] facility Minutes spent on discharge:: 35 Patient Condition:: Stable Medical Necessity - Tobacco Use Smoking Status: Never smoker Meaningful Use Info Meaningful Use Diagnoses (Choose all that apply): None applicable Code Visit Inpatient E&M: 27892 Disch Hosp
[2018-03-22] MEDS: Bisacodyl 10 MG Suppository RECTAL (11:25)
[2018-03-22 14:19] VITALS: BP 156/62; PULSE 70; RESP 20; TEMP 36.7; O2SAT 98
[2018-03-22 14:21] VITALS: BP 156/62; PULSE 70
--- NOTE | 2018-03-22 15:12 | NURSING ---
Leaving at this time. Pt's daughter Janki was called by this nurse and informed of discharge and transport to [facility].
--- NOTE | 2018-03-22 15:18 | NURSING ---
Report given to Jami at [facility] at this time.
== END 2018-03-22 15:11 | disposition skilled nursing facility (03) | DRG 185 ==
LOC: ED 20:49 → MS3 21:44
PROVIDERS: Admitting Provider Internal Medicine; Emergency Provider Emergency Medicine; Family Provider Family Medicine; PCP Family Medicine; Visit Provider Student in an Organized Health Care Education/Training Program
DX: S22.42XA Multiple fractures of ribs, left side, initial encounter for closed fracture (principal); W18.30XA Fall on same level, unspecified, initial encounter; Y92.031 Bathroom in apartment as the place of occurrence of the external cause; I48.2 Chronic atrial fibrillation; I10 Essential (primary) hypertension; Z60.2 Problems related to living alone; D64.9 Anemia, unspecified
CPT/HCPCS: 36415; 71101; 74018; 80048; 82962; 84484; 85025; 85610; 93005; 97110; 97116; 97162; 97165; 97530; 97535; 99283; J7030; A4216; J2405

== ENCOUNTER → 2018-04-28 14:31 | Outpatient (CLI) | payer MEDICARE, BC, SELFPAY ==
[2018-04-01 10:35] VITALS: BMI 32.5
--- NOTE | 2018-04-28 14:43 | BD_ITS ---
STUDY: DUAL ENERGY X-RAY ABSORPTIOMETRY / DXA REASON FOR EXAM: Female, 83 years old. The patient is postmenopausal. Loss of height. TECHNIQUE: Bone Mineral Density (BMD) measurements of lumbar spine and bilateral hips were obtained. COMPARISON: Comparison is made with prior examination dated April 24, 2016. FINDINGS: Lumbar Spine (L1-L4): g/cm2 (0.802) / T-score (-3.3) / Z-score (-1.4) Findings are suggestive of osteoporosis with a high fracture risk. Left Femur Total: g/cm2 (0.771) / T-score (-1.9) / Z-score (0.2) Left Femoral Neck: g/cm2 (0.724) / T-score (-2.3) / Z-score (0.0) Right Femur Total: g/cm2 (0.704) / T-score (-2.4) / Z-score (-0.3) Right Femoral Neck: g/cm2 (0.649) / T-score (-2.8) / Z-score (-0.6) The T-Scores on the most recent prior examination were: Lumbar Spine (L1-L4): There has been improvement of bone density since the previous examination. Left Femur Total: which represents an improvement of 3.6%. Right Femur Total: which represents a worsening of 0.6%. BD/Dexa Bone Density Study IMPRESSION: The patient is considered osteoporotic as outlined below according to World [employer] Organization (WHO) criteria with a high fracture risk. There has been improvement of bone density since the previous examination. Reference Information: The T-score is the number of standard deviations above or below the standard which is normal for young adults at their peak bone mineral density. The World Health Organization (WHO) interprets the T-scores as follows: Above -1 Normal bone density Between -1 and -2.5 Osteopenia Equal to / or below -2.5 Osteoporosis As a practical clinical guideline, osteopenia may be graded as follows: Mild -1 through -1.5 Moderate -1.6 through -2.0 Severe -2.1 through -2.4 The Z-score is the number of standard deviations above or below age-matched controls. A Z-score of less than -1.5 would be considered abnormal. References: 1. NIH Osteoporosis and Related Bone Diseases http://www.osteo.org 2. International Society for Clinical Densitometry http://www.iscd.org 3. National Osteoporosis Foundation http://www.nof.org Electronically Signed: Chris Clark MD at 15:56 EST Tel [phone], Service support ,
--- OUTSIDE RECORDS SUMMARY | 2018-07-31 02:35 | XMS RPT_ITS ---
:1935 Author Organization OHIP Support Name Relationship Address Phone Shakir, Kushal/Danita Unavailable [address] + [place] [address] R Unavailable Unavailable Unavailable Karyn, Janki Unavailable Unavailable + Shakir, Kushal/Danita Unavailable [address] + [place] [address] R Unavailable Unavailable Unavailable Itta Bena, Janki Unavailable . + [place] [address] Shakir, Kushal/Danita Unavailable [address] + [place] [address] R Unavailable Unavailable Unavailable Itta Bena, Janki Unavailable . + [place] [address] Shakir, Kushal/Danita Unavailable [address] + [place] [address] R Unavailable Unavailable Unavailable Karyn, Janki Unavailable . + [place] [address] SHAKIR, KUSHAL/DANITA Unavailable [address] + [place] [address] R Unavailable Unavailable Unavailable KARYN, JANKI Unavailable Unavailable + [place] [address] SHAKIR, KUSHAL/DANITA Unavailable [address] + [place] [address] R Unavailable Unavailable Unavailable KARYN, JANKI Unavailable . + [place] [address] SHAKIR, KUSHAL/DANITA Unavailable [address] + [place] [address] R Unavailable Unavailable Unavailable KARYN, JANKI Unavailable . + [place] [address] SHAKIR, KUSHAL/DANITA Unavailable [address] + [place] [address] R Unavailable Unavailable Unavailable KARYN, JANKI Unavailable . + [place] [address] Shakir, Kushal/Danita Unavailable [address] + [place] [address] R Unavailable Unavailable Unavailable Karyn, Janki Unavailable . + [place] [address] SHAKIR, KUSHAL/DANITA Unavailable [address] + [place] [address] R Unavailable Unavailable Unavailable KARYN, JANKI Unavailable . + [place] [address] SHAKIR, KUSHAL/DANITA Unavailable [address] + [place] [address] R Unavailable Unavailable Unavailable KARYN, JANKI Unavailable . + [place] [address] SHAKIR, KUSHAL/DANITA Unavailable [address] + [place] [address] R Unavailable Unavailable Unavailable KARYN, JANKI Unavailable Unavailable + [place] [address] SHAKIR, KUSHAL/DANITA Unavailable [address] + [place] [address] R Unavailable Unavailable Unavailable KARYN, JANKI Unavailable Unavailable + [place] [address] SHAKIR, KUSHAL/DANITA Unavailable [address] + [place] [address] R Unavailable Unavailable Unavailable KARYN, JANKI Unavailable Unavailable + [place] [address] SHAKIR, KUSHAL/DANITA Unavailable [address] + [place] [address] R Unavailable Unavailable Unavailable KARYN, JANKI Unavailable Unavailable + [place] [address] SHAKIR, KUSHAL/DANITA Unavailable [address] + [place] [address] R Unavailable Unavailable Unavailable KARYN, JANKI Unavailable Unavailable + [place] [address] SHAKIR, KUSHAL/DANITA Unavailable [address] + [place] [address] R Unavailable Unavailable Unavailable KARYN, JANKI Unavailable Unavailable + [place] [address] SHAKIR, KUSHAL/DANITA Unavailable [address] + [place] [address] R Unavailable Unavailable Unavailable KARYN, JANKI Unavailable Unavailable + [place] [address] SHAKRI, KUSHAL/DANITA Unavailable [address] + [place] [address] R Unavailable Unavailable Unavailable KARYN, JANKI Unavailable Unavailable + [place] [address] SHAKIR, KUSHAL/DANITA Unavailable [address] + [place] [address] R Unavailable Unavailable Unavailable KARYN, JANKI Unavailable Unavailable + [place] [address] SHAKIR, KUSHAL/DANITA Unavailable [address] + [place] [address] R Unavailable Unavailable Unavailable KARYN, JANKI Unavailable Unavailable + [place] [address] SHAKIR, KUSHAL/DANITA Unavailable [address] + [place] [address] R Unavailable Unavailable Unavailable KARYN, JANKI Unavailable . + [place] . SHAKIR, KUSHAL/DANITA Unavailable [address] + [place] [address] R Unavailable Unavailable Unavailable KARYN, JANKI Unavailable . + [place] . SHAKIR, KUSHAL/DANITA Unavailable [address] [phone] [place] [address] R Unavailable Unavailable Unavailable KARYN, JANKI Unavailable . + [place] . SHAKIR, KUSHAL/DANITA Unavailable [address] [phone] [place] [address] R Unavailable Unavailable Unavailable KARYN, JANKI Unavailable . + [place] . SHAKIR, KUSHAL/DANITA Unavailable [address] [phone] [place] [address] R Unavailable Unavailable Unavailable KARYN, JANKI Unavailable . + [place] . MENYOR, KUSHAL/DANITA Unavailable [address] [phone] [place] [address] R Unavailable Unavailable Unavailable KARYN, JANKI Unavailable . + [place] . MENYOR, KUSHAL/DANITA Unavailable [address] [phone] [place] [address] R Unavailable Unavailable Unavailable KARYN, JANKI Unavailable . + [place] . MENYOR, KUSHAL/DANITA Unavailable [address] [phone] [place] [address] R Unavailable Unavailable Unavailable KARYN, JANKI Unavailable . + [place] . MENYOR, KUSHAL/DANITA Unavailable [address] [phone] [place] [address] R Unavailable Unavailable Unavailable KARYN, JANKI Unavailable . + [place] . MENYOR, KUSHAL/DANITA Unavailable [address] [phone] [place] [address] R Unavailable Unavailable Unavailable KARYN, JANKI Unavailable . + [place] . MENYOR, KUSHAL/DANITA Unavailable [address] [phone] [place] [address] R Unavailable Unavailable Unavailable KARYN, JANKI Unavailable . + [place] . MENYOR, KUSHAL/DANITA Unavailable [address] [phone] [place] [address] R Unavailable Unavailable Unavailable KARYN, JANKI Unavailable . + [place] . MENYOR, KUSHAL/DANITA Unavailable [address] [phone] [place] [address] R Unavailable Unavailable Unavailable KARYN, JANKI Unavailable . + [place] . DUNCANPeterJAYN/DANITA Unavailable [address] [phone] [place] [address] R Unavailable Unavailable Unavailable MOUNA BOSSINE Unavailable . + [place] . Care Team Providers Name Role Phone Ranney, Christopher Attending Unavailable Ranney, Christopher Primary Care Unavailable Ranney, Christopher Attending Unavailable Ranney, Christopher Referring Unavailable Ranney, Christopher Primary Care Unavailable Abby, [place] Attending Unavailable Abby, [place] Referring Unavailable [facility], [facility] Unavailable Abby, Evin Attending Unavailable Abby, Evin Referring Unavailable Ranney, Christopher Primary Care Unavailable Abby, Evin Attending Unavailable Abby, [place] Referring Unavailable Ranney, Christopher Primary Care Unavailable Abby, [place] Attending Unavailable Abby, Evin Referring Unavailable Ranney, Christopher Primary Care Unavailable Nurse, Standard Attending Unavailable Ranney, Christopher Referring Unavailable Ranney, Christopher Primary Care Unavailable Abby, [place] Attending Unavailable Abby, Evin Referring Unavailable Ranney, Christopher Primary Care Unavailable Nallely Wright Attending Unavailable Ranney, Christopher Primary Care Unavailable Ranney, Christopher Attending Unavailable Abby, Evin Attending Unavailable Ranney, Christopher Referring Unavailable Ranney, Christopher Primary Care Unavailable Abby, [place] Attending Unavailable Abby, [place] Referring Unavailable Ranney, Christopher Primary Care Unavailable Abby, [place] Attending Unavailable Abby, [place] Referring Unavailable Ranney, Christopher Primary Care Unavailable Abby, Evin Attending Unavailable Abby, Evin Referring Unavailable Ranney, Christopher Primary Care Unavailable Ranney, Christopher Attending Unavailable Ranney, Christopher Primary Care Unavailable Ranney, Christopher Attending Unavailable Ranney, Christopher Referring Unavailable Ranney, Christopher Primary Care Unavailable Abby, [place] Attending Unavailable Abby, Evin Referring Unavailable Ranney, Christopher Primary Care Unavailable Ranney, Christopher Attending Unavailable Ranney, Christopher Primary Care Unavailable Abby, Evin Attending Unavailable Abby, Evin Referring Unavailable Ranney, Christopher Primary Care Unavailable Abby, [place] Attending Unavailable Abby, [place] Referring Unavailable Rano'brien, [facility] Primary Care Unavailable Abby, [place] Attending Unavailable Abby, [place] Referring Unavailable [place]ano[place], [facility] Primary Care Unavailable Ranney, Christopher Attending Unavailable [place], [place] [facility] Unavailable Nallely Wright Attending Unavailable [place], [place] Primary [facility] Unavailable AdrianaNallely M Referring Unavailable Ranney, Christopher Attending Unavailable Ranney, Christopher Referring Unavailable Ranney, [facility] Primary Care Unavailable Abby, Evin Consulting Unavailable Abby, [place] Attending Unavailable Abby, Evin Referring Unavailable [place], [facility] Primary Care Unavailable Ranney, [facility] Primary Care Unavailable White, Allison Admitting Unavailable Koram, Fely Deandra Attending Unavailable White, Allison Admitting Unavailable Jan Sullivankash Attending Unavailable [place], [facility] Primary Care Unavailable White, Allison Consulting Unavailable White, Allison Admitting Unavailable Koram, Fely Deandra Attending Unavailable [place], [facility] Primary Care Unavailable Koram, Fely Deandra Consulting Unavailable White, Allison Admitting Unavailable Koram, Fely Deandra Attending Unavailable [place], [facility] Primary Care Unavailable Koram, Fely Deandra Consulting Unavailable White, Allison Admitting Unavailable Koram, Fely Deandra Attending Unavailable [facility], [facility] Primary Care Unavailable Koram, Fely Deandra Consulting Unavailable White, Allison Admitting Unavailable Koram, Fely Deandra Attending Unavailable [place], [facility] Primary Care Unavailable Koram, Fely Deandra Consulting Unavailable Tarik Tiwari Attending Unavailable Yenny Buckley Attending Unavailable [place]ano[place], Christopher Referring Unavailable Tarik Tiwari Attending Unavailable Martin Hunter Attending Unavailable [place], [facility] Referring Unavailable PROBLEMS PROBLEMS DATE TYPE CONDITION / CODE ATTENDING STATUS SOURCE 04/28/2018 Unknown M81.0 - Age-related Ranney, Active [place] osteoporosis without [facility] current pathological Hospital fracture / Repository M81.0(ICD-10) 03/18/2018 Unknown S22.39XA - Fracture Koram, Fely Deandra Active [place] of one rib, Community unspecified side, Hospital initial encounter Repository for closed fracture / S22.39XA(ICD-10) 04/14/2018 Unknown I10 - Essential Martin Hunter Active [place] (primary) Community hypertension / Hospital I10(ICD-10) Repository 04/14/2018 Unknown I48.2 - Chronic Martin Hunter Active [place] atrial fibrillation Community / I48.2(ICD-10) Hospital Repository 03/12/2018 Unknown I48.91 - Unspecified Abby, [place] Active [place] atrial fibrillation Community / I48.91(ICD-10) Hospital Repository 03/12/2018 Unknown Z79.01 - detention Abby, [place] Active [place] (current) use of [facility] anticoagulants / Hospital Z79.01(ICD-10) Repository 02/11/2018 Unknown M25.511 - Pain in Leela, Active [place] right shoulder / [facility] M25.511(ICD-10) Hospital Repository 12/25/2017 Unknown I73.9 - Peripheral Leela, [facility] [place] [facility] I73.9(ICD-10) Repository 08/19/2017 Unknown R31.1 - Benign Adriana, Nallely Active [place] essential M [facility] microscopic Hospital hematuria / Repository R31.1(ICD-10) 07/10/2017 Unknown S46.811D - Strain of Leela, Active [place] [facility] fasc[facility] tend[facility] at shoulder and Repository upper arm level, right arm, subsequent encounter / S46.811D(ICD-10) 07/10/2017 Unknown I48.0 - Paroxysmal Abby, [place] Active [place] atrial fibrillation Community / I48.0(ICD-10) Hospital Repository PROCEDURES PROCEDURES No Procedure Records FoundRESULTS RESULTS DEXA BONE DENSITY Observed: 04/28/2018 Status: F Source: [place] STUDY 2:37 PM [facility] REPOSITORY [facility] Imaging Services [address] [place] [id number] Dexa Bone Density Study MR#: [id number] Acct: [id number] Name: JOYCE SOLOMON Rep #: [id number] : 1935 F 83 From: Chris Clark MD PCP: Hussein Swenson MD Status: REG CLI Study: Dexa Bone Density Study Date of Exam: 04/28/18 Exam# [id number] Ordering Dr: Doyle Swenson MD STUDY: DUAL ENERGY X-RAY ABSORPTIOMETRY / DXA REASON FOR EXAM: Female, 83 years old. The patient is postmenopausal. Loss of height. TECHNIQUE: Bone Mineral Density (BMD) measurements of lumbar spine and bilateral hips were obtained. COMPARISON: Comparison is made with prior examination dated April 24, 2016. FINDINGS: Lumbar Spine (L1-L4): g/cm2 (0.802) / T-score (-3.3) / Z-score (-1.4) Findings are suggestive of osteoporosis with a high fracture risk. Left Femur Total: g/cm2 (0.771) / T-score (-1.9) / Z- score (0.2) Left Femoral Neck: g/cm2 (0.724) / T-score (-2.3) / Z- score (0.0) Right Femur Total: g/cm2 (0.704) / T-score (-2.4) / Z- score (-0.3) Right Femoral Neck: g/cm2 (0.649) / T-score (-2.8) / Z-score (-0.6) The T-Scores on the most recent prior examination were: Lumbar Spine (L1-L4): There has been improvement of bone density since the previous examination. Left Femur Total: which represents an improvement of 3.6%. Right Femur Total: which represents a worsening of 0.6%. BD/Dexa Bone Density Study IMPRESSION: The patient is considered osteoporotic as outlined below according to World [employer] Organization (WHO) criteria with a high fracture risk. There has been improvement of bone density since the previous examination. Reference Information: The T-score is the number of standard deviations above or below the standard which is normal for young adults at their peak bone mineral density. The World Health Organization (WHO) interprets the T-scores as follows: Above -1 Normal bone density Between -1 and -2.5 Osteopenia Equal to / or below -2.5 Osteoporosis As a practical clinical guideline, osteopenia may be graded as follows: Mild -1 through -1.5 Moderate -1.6 through -2.0 Severe -2.1 through -2.4 The Z-score is the number of standard deviations above or below age-matched controls. A Z-score of less than -1.5 would be considered abnormal. References: 1. NIH Osteoporosis and Related Bone Diseases http://www.osteo.org 2. International Society for Clinical Densitometry http://www.iscd.org 3. National Osteoporosis Foundation http://www.nof.org Electronically Signed: Chris Clark MD at 15:56 EST Tel [phone], Service support , CC: Hussein Swenson MD Culinary Director: Signed BASIC METABOLIC Collected: 04/06/2018 Status: F Source: [place] PROFILE (BMP) 5:50 AM [facility] Order Comment: 404 TYPE CODE TESTS RESULT OUT OF RANGE REFERENCE UNITS LAB L501.0100 74-106 mg/dL Normal GLU 84 Result Comment: Please note revised GLUCOSE reference range effective 2017. LAB L501.1000 7-18 mg/dL High BUN 32 LAB L501.1100 0.55-1.02 mg/dL Normal CREAT,SERUM 0.86 Result Comment: The validity of the calculated GFR AND GFRAA in patients over 70 years has not been determined. Clinical correlation is essential. LAB L501.1110 >60 mL/min Normal EST GFR 67 Result Comment: Non- GFR Calc LAB L501.1115 >60 mL/min Normal EST GFR - AA 82 Result Comment: GFR Calc LAB L501.1300 10-20 RATIO High BUN/CRE 37.3 LAB L501.2200 8.5-10.1 mg/dL CA Normal 9.3 LAB L501.5300 136-145 mmol/L NA Normal 137 LAB L501.5600 3.5-5.1 mmol/L K Normal 4.1 LAB L501.5900 98-107 mmol/L Low CL 97 LAB L501.6100 21.0-32.0 mmol/L Normal CO2 30.0 LAB L501.6200 5-15 Normal GAP 10 Performed By: #### L500.2500 #### [facility] [address] [place], [place], [address] CBC-COMPLETE BLOOD CNT Collected: 04/06/2018 Status: F Source: [place] NO DIFF 5:50 AM [facility] Order Comment: 404 TYPE CODE TESTS RESULT OUT OF RANGE REFERENCE UNITS LAB L100.1000 4.4-11.0 K/mm3 Normal WBC 5.8 LAB L100.1200 4.2-5.4 M/mm3 Low RBC 3.56 LAB L100.1300 12.0-15.0 g/dl Low HGB 10.9 LAB L100.1400 37-47 % Low HCT 34.0 LAB L100.1500 81-99 fL Normal MCV 95.5 LAB L100.1600 27.0-32.0 pg Normal MCH 30.6 LAB L100.1700 32-36 g/gl Normal MCHC 32.1 LAB L100.1810 11.6-14.6 % Normal RDW CV 13.2 LAB L100.1820 35.1-43.9 fl High RDW SD 46.2 LAB L100.1900 150-450 K/mm3 Normal PLT 330 LAB L100.2000 6.2-12.0 fl Normal MPV 9.5 Performed By: #### L100.0500 #### [facility] [address] [place], [place], [address] PROTHROMBIN TIME W/INR Collected: 04/06/2018 Status: F Source: [place] 5:50 AM [facility] TYPE CODE TESTS RESULT OUT OF RANGE REFERENCE UNITS LAB L300.4150 11.7-14.9 SECONDS High PROTIME 24.5 LAB L300.4200 Normal INR 2.2 Performed By: #### L300.3900 #### [facility] [address] [place], [place], [address] CARDIOLOGY VISIT Observed: 04/02/2018 Status: F Source: [place] REPORT 10:38 AM [facility] [address] [place] [address] OFFICE VISIT Date of Service: 04/01/18 MR#: [id number] Acct: [id number] Name: JOYCE SOLOMON Rep #: [id number] : 1935 Provider: Yenny Buckley Age/Sex: 83/F Location: [facility] Status: Signed HPI HPI Chief Complaint: Fall with rib fx Details: JOYCE SOLOMON, is a 83 F who presents to the office today for cardiovascular follow-up. She has a history of hypertension, sleep apnea, atrial fibrillation with RVR. Patient recently was hospitalized for a mechanical fall in which she fractured her ribs. Her Coumadin was held for a few days. She has since resumed this. Patient does have shortness of breath but this is due to her rib fracture. She does have discomfort with this. She has not had any further lightheadedness or dizziness. She did have lightheaded and dizziness after her fall. She does not have any palpitations that she is aware of. She does have some lower extremity edema. This is improving since her hospital stay. She is currently in a rehab facility, the plan is for her to go home after this. Intake Vital Signs04/01/18 Height 5 ft 1 in 04/01/18 Weight: 172 lb 04/01/18 Body Mass Index (BMI) 32.5 04/01/18 Blood Pressure 146/68 H 04/01/18 Blood Pressure Location Lt brachial Intake Visit Reasons: DC 03-22, at [facility], also due for 6 M FU Color Stripper Required: No Accompanied by: none Is patient in pain?: No Allergies beet [Beet] Allergy (Verified 04/01/18 10:37) Hives levofloxacin [From Levaquin] Allergy (Verified 04/01/18 10:37) Unknown Penicillins Allergy (Verified 04/01/18 10:37) Unknown wheat Allergy (Verified 04/01/18 10:37) Hives gabapentin [From Neurontin] Adverse Reaction (Verified 04/01/18 10:37) Other meloxicam [From Mobic] Adverse Reaction (Verified 04/01/18 10:37) Other oxycodone [From OxyIR] Adverse Reaction (Verified 04/01/18 10:37) Nausea risedronate sodium [From Actonel] Adverse Reaction (Verified 04/01/18 10:37) Other CANTALOPE Allergy (Uncoded 05/18/17 13:52) Hives CONCENTRATES Allergy (Uncoded 05/18/17 13:52) Hives EGGPLANT Allergy (Uncoded 05/18/17 13:52) Hives MOLD Allergy (Uncoded 05/18/17 13:52) Unknown PROCESSED FOODS Allergy (Uncoded 05/18/17 13:52) Hives Medications Calcium Carb/Vitamin D [Caltrate-600 With Vit D Tab] 1 tab PO BID 02/26/13 [History Confirmed 04/01/18] Aspirin E.C. [Ecotrin] 81 mg PO DAILY@0800 #60 tab 07/29/13 [Rx Confirmed 04/01/18] Cholecalciferol (Vitamin D3) [Vitamin D3] 1,000 unit PO DAILY 12/25/16 [History Confirmed 04/01/18] Acetaminophen [Tylenol Extra Strength] 1,000 mg PO Q6H PRN 05/18/17 [History Confirmed 04/01/18] Losartan Potassium 100 mg PO DAILY 03/18/18 [History Confirmed 04/01/18] Atenolol 50 mg PO BID #60 tab 03/22/18 [Rx Confirmed 04/01/18] amlodipine 5 mg tablet 5 mg PO DAILY 04/01/18 [History Confirmed 04/01/18] furosemide 20 mg tablet 20 mg PO DAILY 04/01/18 [History Confirmed 04/01/18] warfarin 4 mg tablet 4 mg PO DAILY 04/01/18 [History Confirmed 04/01/18] PFSH Medical History A-fib (Chronic) Arthritis (Chronic) Difficulty balancing (Chronic) Fatigue (Chronic) HTN (hypertension) (Chronic) Heart disease (Chronic) Limb weakness (Chronic) Migraines (Chronic) Pneumonia (Chronic) SOB (shortness of breath) (Chronic) Shoulder pain (Chronic) Thyroid disease (Chronic) Surgical History History of thyroid surgery (Chronic) History of tonsillectomy (Chronic) Hx of appendectomy (Chronic) Hx of bilateral cataract extraction (Chronic) Hx of cholecystectomy (Chronic) Family History Other Diabetes Heart disease Social History Smoking Status: Never smoker alcohol intake: never substance use type: does not use ROS Const Const: Negative for weakness, fatigue, fever(s) or headache(s) Eyes Eyes: Negative for blind spots, loss of peripheral vision or transient loss of vision ENT ENT: Negative for headache(s), dizziness, tinnitus or Nosebleed/epistaxis Cardio Chest Pain: No Palpitations: No Edema: None Muscle aches with walking: None Resp Respiratory: Positive for SOB with activity (d/t rib fx); negative for SOB at rest, SOB orthopnea\SOB lying down or Cough GI GI: Negative nausea, vomiting, heartburn or vomiting blood/hematemesis : Negative for hematuria Musc Musc: Negative for muscle aches/ myalgia Neuro Neuro: Negative for weakness, headache(s), dizziness, near syncope, syncope, lightheadedness or orthostatic symptoms Alphonse Hematologic/Lymphatic: Negative for easy bleeding Endo Endo: Negative for fatigue Cardiology Exam Const Appearance: cooperative, healthy appearing, well developed, well groomed and no acute distress Nutritional Appearance: well nourished and average body habitus Orientation: alert, awake and oriented x3 Head Head: normal to inspection, normocephalic and atraumatic Ears: hearing grossly normal bilaterally and external ears normal Nose: external nose normal, nasal mucous membranes and turbinates normal, nares normal, septum normal, no nasal discharge Face and Sinus: face symmetric Mouth: oral mucosae normal, tongue normal, oropharynx normal and moist mucous membranes Teeth and gingiva: dentition normal Throat: posterior oropharynx normal, tonsils normal and uvula midline Eyes General: appearance normal, both eyes and all related structures Eyelids: eyelids normal Conjunctivae: conjunctivae normal Pupils: PERRL, normal by confrontation and accommodation normal EOM: EOM intact bilaterally Neck Neck: normal visual inspection, trachea midline and no JVD JVD: +5 Carotids: normal carotid upstroke and bounding pulses Chest Chest inspection: normal inspection of the chest, symmetric chest movement and normal respiratory effort Auscultation: Bilateral: Clear to Auscultation Cardio Palpation: normal PMI Rate: regular rate Rhythm: regular rhythm Heart sounds: S1 normal, S2 normal and normal, physiologic split S2; negative rub, gallop or murmur GI GI: normal to inspection, soft, no hepatosplenomegaly and bowel sounds present Neuro General: alert, awake, oriented x3, no focal sensory deficit, gait normal and moves all extremities Skin Skin: no rashes or lesions noted Extremities Pulses: Normal: Right Femoral Pulse, Left Femoral Pulse, Right Dorsalis Pedis Pulse, Left Dorsalis Pedis Pulse, Right Posterior Tibial Pulse, Left Posterior Tibial Pulse, Right Radial Pulse, Left Radial Pulse Lower Extremity Edema: None: Bilateral Musculoskel Musculoskeletal: No joint tenderness Psych Psychological: normal affect Supplemental Info Echocardiogram in 2013 demonstrated: Normal LV size. Left ventricular systolic function is normal. The estimated ejection fraction is 60 %. Mild-Moderate (1-2+) eccentric mitral valve insufficiency. Mild diffuse mitral valve thickening. Pulmonary artery systolic pressure is 28 mmHg. Assessment AND Plan 1. Benign essential HTN I10 Plan - RM Srivastava Blood pressure medications have been adjusted during her hospital stay. She will continue to monitor this. 2. Chronic a-fib I48.2 Plan - RM Srivastava Patient recently resumed her anticoagulation. She will continue with her current rate limiting medication. We will continue to monitor. Plan Detail Additional Comments - RM Srivastava The above patient was discussed with Dr. Mora, he agrees with plan of care. Thank you for allowing us to participate in patient's plan of care, if you have any questions please do not hesitate to call. This note was generated using a voice recognition system and there may be incorrect words, spelling or punctuation errors that were not noted when reviewing the office note prior to saving. Follow Up 3 Months (ICE SELLER/MMM) Coding Level of Care Code Off vis,est,level 3 Diagnoses Benign essential HTN I10 Chronic a-fib I48.2 Coding Level of Care Code Off vis,est,level 3 Diagnoses Benign essential HTN I10 Chronic a-fib I48.2 04/01/18 1105 <Electronically signed by Yenny ABDALLA> Date Yenny ABDALLA 04/02/18 1038<Electronically signed by Evin Mora MD> Cosigner Signature: Date (if applicable) Evin Mora MD CC: Hussein Swenson MD CBC-COMPLETE BLOOD CNT Collected: 03/30/2018 Status: F Source: [place] NO DIFF 5:15 AM [facility] Order Comment: 404 TYPE CODE TESTS RESULT OUT OF RANGE REFERENCE UNITS LAB L100.1000 4.4-11.0 K/mm3 Normal WBC 6.2 LAB L100.1200 4.2-5.4 M/mm3 Low RBC 3.45 LAB L100.1300 12.0-15.0 g/dl Low HGB 10.6 LAB L100.1400 37-47 % Low HCT 33.7 LAB L100.1500 81-99 fL Normal MCV 97.7 LAB L100.1600 27.0-32.0 pg Normal MCH 30.7 LAB L100.1700 32-36 g/gl Low MCHC 31.5 LAB L100.1810 11.6-14.6 % Normal RDW CV 13.1 LAB L100.1820 35.1-43.9 fl High RDW SD 44.9 LAB L100.1900 150-450 K/mm3 Normal PLT 348 LAB L100.2000 6.2-12.0 fl Normal MPV 9.7 Performed By: #### L100.0500 #### [facility] [place], [address] BASIC METABOLIC Collected: 03/30/2018 Status: F Source: [place] PROFILE (BMP) 5:15 AM [facility] Order Comment: 404 TYPE CODE TESTS RESULT OUT OF RANGE REFERENCE UNITS LAB L501.0100 74-106 mg/dL Normal GLU 88 Result Comment: Please note revised GLUCOSE reference range effective 2017. LAB L501.1000 7-18 mg/dL High BUN 33 LAB L501.1100 0.55-1.02 mg/dL Normal CREAT,SERUM 0.76 Result Comment: The validity of the calculated GFR AND GFRAA in patients over 70 years has not been determined. Clinical correlation is essential. LAB L501.1110 >60 mL/min Normal EST GFR 77 Result Comment: Non- GFR Calc LAB L501.1115 >60 mL/min Normal EST GFR - AA 94 Result Comment: GFR Calc LAB L501.1300 10-20 RATIO High BUN/CRE 43.4 LAB L501.2200 8.5-10.1 mg/dL CA Normal 8.9 LAB L501.5300 136-145 mmol/L NA Normal 140 LAB L501.5600 3.5-5.1 mmol/L K Normal 3.8 LAB L501.5900 98-107 mmol/L CL Normal 102 LAB L501.6100 21.0-32.0 mmol/L Normal CO2 31.0 LAB L501.6200 5-15 Normal GAP 7 Performed By: #### L500.2500 #### [facility] [address] [place], [address] PROTHROMBIN TIME W/INR Collected: 03/30/2018 Status: F Source: [place] 5:15 AM [facility] Order Comment: 404 TYPE CODE TESTS RESULT OUT OF RANGE REFERENCE UNITS LAB L300.4150 11.7-14.9 SECONDS Normal PROTIME 14.5 LAB L300.4200 Normal INR 1.1 Performed By: #### L300.3900 #### [facility] [address] [place], [address] 12 LEAD ELECTROCARDIOGRAM Observed: 2018 Status: F Source: [place] 11:37 AM [facility] Cardiovascular Services [address] [place] [address] 12 Lead EKG 03/21/18 0906 MR#: [id number] Acct: [id number] Name: JOYCE SOLOMON Rep #: [id number] : 1935 82 From: Evin Mora MD Attending Dr: Fely Jimenez MD Status: DIS IN Ordering Dr: Fely Jimenez MD Date: 03/21/18 Location: [facility] Sex: F C Admitted: 03/19/18 Test Reason : CP Blood Pressure : / mmHG Vent. Rate : 071 BPM Atrial Rate : 071 BPM P-R Int : 166 ms QRS Dur : 092 ms QT Int : 386 ms P-R-T Axes : 038 011 028 degrees QTc Int : 419 ms Normal sinus rhythm with sinus arrhythmia Normal ECG When compared with ECG of 19-MAR-2018 00:30, MANUAL COMPARISON REQUIRED, DATA IS UNCONFIRMED Confirmed by ABBY URBAN, EVIN ([id number]), video editor JAVAD TIWARI ([id number]) on 2018 11:36:47 AM Referred By: Doyle Swenson Confirmed By:EVIN MORA MD 03/25/18 1136 Date Evin Mora MD CC: Hussein Swenson MD; Fely Jimenez MD Signed 12 LEAD ELECTROCARDIOGRAM Observed: 03/23/2018 Status: F Source: [place] 2:56 PM [facility] RE[facility]IT[facility] Cardiovascular Services [address] [place] [address] 12 Lead EKG 03/19/18 0030 MR#: [id number] Acct: [id number] Name: JOYCE SOLOMON Rep #: [id number] : 1935 82 From: Martin Hunter MD Attending Dr: Fely Jimenez MD Status: DIS IN Ordering Dr: Trisha Simons MD Date: 03/18/18 [place] [facility] [place] C Admitted: 03/19/18 Test Reason : FALL Blood Pressure : / mmHG Vent. Rate : 067 BPM Atrial Rate : 067 BPM P-R Int : 142 ms QRS Dur : 086 ms QT Int : 424 ms P-R-T Axes : 027 027 045 degrees QTc Int : 448 ms Normal sinus rhythm Normal ECG When compared with ECG of 25-DEC-2016 16:12, Sinus rhythm has replaced Atrial fibrillation Vent. rate has decreased BY 33 BPM QT has lengthened Confirmed by MARTIN HUNTER ([id number]), video editor JAVAD TIWARI ([id number]) on 03/23/2018 2:56:21 PM Referred By: Doyle Swenson Confirmed By:MARTIN HUNTER 03/23/18 1456 Date Martin Hunter MD CC: TRISHA SIMONS MD; Hussein Swenson MD; Fely Jimenez MD Signed DISCHARGE SUMMARY Observed: 03/22/2018 Status: F Source: [facility] PM [facility] Medical Records Department [address] [place] [address] Discharge Summary 03/22/18 1123 MR#: [id number] Acct: [id number] Name: JOYCE SOLOMON Rep #: [id number] : 1935 82 From: Fely Jimenez MD PCP: Hussein Swenson MD Status: ADM IN Location: [place] [address] Discharge Date and Diagnosis - Problem List Patient Problems: Active and Suspected Problems (Last Reviewed 09/18/17 @ 13:02 by Evin Mora MD) Multiple fractures of ribs, left side, initial encounter for closed fracture (Acute) Date of Admission: 03/18/18 Date of Discharge: 03/22/18 - Primary Discharge Diagnosis Active and Suspected Problems (Last Reviewed 09/18/17 @ 13:02 by Evin Mora MD) Multiple fractures of ribs, left side, initial encounter for closed fracture (Acute) mechanical fall - Secondary Discharge Diagnosis Chronic Problems (Last Reviewed 09/18/17 @ 13:02 by Evin Mora MD) Chronic a-fib (Chronic) Hypertensive emergency (Chronic) Headache (Chronic) detention (current) use of anticoagulants (Chronic) 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 There may be a nondisplaced fracture in the lateral left fourth rib. CHEST: There is no evidence of pneumothorax or pleural effusion. 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 Electronically Signed: Jaja Ortiz MD at 20:30 EST Tel Direct: [phone], Service support , KUB X-Ray 03/20/18 16:30 IMPRESSION: Large amount of stool in the right colon consistent with constipation. There is no evidence of ileus or obstruction. There are degenerative changes of the right hip joint. Electronically Signed: Rajendra Ponce MD at 16:45 EST , Service support , Operations: None Procedures: None Summary of Care Provided: The patient is a 82 year old F with an extensive past medical history as listed below. She was admitted with a complaint of mechanical fall as she was reaching for something in her bathroom. She fell on her left flank and upper back he did not lose consciousness and had no assisted lightheadedness or dizziness. X-rays done in the ED showed minimally displaced fractures of the lateral aspect of the left fifth to eighth rib and a possible nondisplaced fracture in the she was admitted to be managed for rib fractures due to mechanical fall. Patient remained stable. She had a near syncopal episode was on admission which was thought to be due to orthostatic hypotension she was resuscitated with IV fluid. This resolved and patient remained stable. Initially she wanted to go home but after a near syncopal episode patient was amenable to going to a skilled rehab facility for intensive physical therapy. During this admission, patient's Coumadin was stopped on account of recurrent falls whilst at home due to risk of intracranial bleed with a fall. 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 Mora. She had been on Coumadin on account of chronic A. fib. Her blood pressure remained poorly controlled and so her atenolol was increased to 50 mg twice daily. Patient remained stable and was discharged to [facility] on 03/22/18. She is follow-up with her primary care doctor and associate professor of church music. Patient seen and examined prior to discharge. She had no complaints and felt well. She denied any fever or chills, cough or chest pain, shortness of breath, abdominal pain, any diarrhea vomiting. 12 point review systems otherwise negative. Labs and vitals reviewed. Home medications reviewed and reconciled. Examination Vitals: Vital Signs Height 5 ft 1 in Weight: 175 lb 4.28 oz General: Alert, Oriented x3, Cooperative, No apparent distress HEENT: Atraumatic, PERRLA, EOMI, Normocephalic Oral: Moist Mucosa Neck: Supple, No JVD, Negative Carotid Bruits Lungs: Normal air movement, No rhonchi, No wheeze, - - few crackles bibasally Cardiovascular: Regular rate, Regular Rhythm, Normal S1, Normal S2, No murmurs Abdomen: Bowel Sounds Present, Soft, Non Tender, Non-Distended, No Hepato-splenomegaly Extremities: No clubbing, No cyanosis, No edema, Capillary Refill Less than 3 Seconds Skin: No rashes, No breakdown Musculoskeletal: No Tenderness to Palpation of Joints or Extremities Lymphatic: No Cervical, Supraclavicular, or Inguinal Adenopathy Neurological: Cranial nerves II-XII grossly intact, Neuro grossly intact, Motor Exam 5/5 strength throughout Psych/Mental Status: Normal Affect, Appropriate, Alert and oriented to time, place, person, mood and affect Plan as discussed above. Patient was given a prescription for a wheeled walker at her request. [] Patient Problems: Active and Suspected Problems (Last Reviewed 09/18/17 @ 13:02 by Evin Mora MD) Multiple fractures of ribs, left side, initial encounter for closed fracture (Acute) - Physical Exam Vital Signs Temp Pulse Resp BP Pulse Ox 97.9 F 70 20 H 172/45 H 98 03/22/18 11:11 03/22/18 11:11 03/22/18 11:11 03/22/18 11:11 03/22/18 11:11 Oxygen Delivery Method Room Air Weight: 175 lb 4.28 oz Body Mass Index (BMI) 33.1 Finger Stick Blood Glucose 151 Orthostatic Vital Signs Start: 03/20/18 13:55 Freq: q24h Status: Active Protocol: Activity Type Activity Date Activity User E-Sign Co-Sign Detail Recorded Client Recorded Date Recorded By Document 03/20/18 11:55 [facility] [id number] 03/20/18 13:57 [facility] Intake and Output for Last 24 Hours Intake Total 2961 / 2961 2696 / 2696 600 / 600 Output Total 950 / 950 400 / 400 Balance 2010 2296 / 2296 600 / 600 Discharge Diet: Low fat/ Low Cholesterol Weight Bearing Status: Weight bearing as tolerated Call your doctor if you observe: Shortness of breath, Dizziness, Fainting spells, Chest pain, Uncontrolled pain Home Medications: Medications to take at Discharge Calcium Carb/Vitamin D [Caltrate-600 With Vit D Tab] 1 tab PO BID 02/26/13 Aspirin E.C. [Ecotrin] 81 mg PO DAILY@0800 #60 tab 07/29/13 Cholecalciferol (Vitamin D3) [Vitamin D3] 1,000 unit PO DAILY 12/25/16 Acetaminophen [Tylenol Extra Strength] 1,000 mg PO Q6H PRN 05/18/17 Losartan Potassium 100 mg PO DAILY 03/18/18 Atenolol 50 mg PO BID #60 tab 03/22/18 Following Prescrptions Were Given to Patient: Atenolol 50 mg PO BID #60 tab Other Amb Orders: Wheeled Walker Location: None Selected Primary Care Physician: Doyle Swenson MD [Primary Care Provider] - 1 Week Please follow up with your Primary Care Physician in: 1 week Please Follow Up With: Evin Mora MD When: 1-2 weeks Patient Instructions: ED Mechanical Fall, ED Fx Rib Disposition: Assisted facility Minutes spent on discharge:: 35 Patient Condition:: Stable Medical Necessity - Tobacco Use Smoking Status: Never smoker Meaningful Use Info Meaningful Use Diagnoses (Choose all that apply): None applicable Code Visit Inpatient E AND M: 87584 Disch Hosp 03/22/18 1345 <Electronically signed by Fely Jimenez MD> Date Fely Jimenez MD Cosigner Signature (if applicable): Date CC: Hussein Swenson MD; Fely Jimenez MD Signed TRANSFER TO EXTENDED Observed: 03/22/2018 Status: F Source: [facility] 11:21 AM [facility] Medical Records Department [address] [place] [address] Transfer to Extended Care MR#: [id number] Acct: [id number] Name: JOYCE SOLOMON Rep #: [id number] : 1935 82 From: Fely Jimenez MD PCP: Hussein Swenson MD Status: ADM IN JOYCE SOLOMON (Patient) (Health Ins. Claim No.) (Day of Discharge to Facility) Certification of patient admission REQUIRED AT TIME OF ADMISSION. I CERTIFY THAT POST-HOSPITAL ECF SERVICES ARE REQUIRED TO BE GIVEN ON AN IN-PATIENT BASIS BECAUSE OF THE ABOVE NAMED PATIENT'S NEED FOR SENIOR CARE CARE ON A CONTINUING BASIS FOR THE CONDITION(S) FOR WHICH HE/SHE WAS RECEIVING IN-PATIENT HOSPITAL SERVICES PRIOR TO HIS/HER TRANSFER TO THE ECF. 03/22/18 1121 <Electronically signed by Fely Jimenez MD> Date Fely Jimenez MD - Diet 03/18/18 23:17 Diet: Cardiac/Low Cholesterol Dietary Modifications:: Gluten Free Type of Dietary Supplement:: Ensure Complete - Routine Orders/Code Status Enema Type: Fleetz Enema Frequency: Daily PRN Suppository Type: Dulcolax 10mg Suppository Frequency: Daily PRN O2 Frequency: PRN Keep PO Greater than or Equal to (%): 92 - Therapies Weight Bearing: Weight bearing as tolerated Physical Therapy: Eval and Treat Occupational Therapy: Eval and Treat - Allergies/Procedures Done in Hospital Allergies/Adverse Reactions: Allergies beet [Beet] Allergy (Verified 03/18/18 18:25) Hives levofloxacin [From Levaquin] Allergy (Verified 03/18/18 18:25) Unknown Penicillins Allergy (Verified 03/18/18 18:25) Unknown wheat Allergy (Verified 03/18/18 18:25) Hives gabapentin [From Neurontin] Adverse Reaction (Verified 03/18/18 18:25) Other meloxicam [From Mobic] Adverse Reaction (Verified 03/18/18 18:25) Other oxycodone [From OxyIR] Adverse Reaction (Verified 03/20/18 08:08) Nausea risedronate sodium [From Actonel] Adverse Reaction (Verified 03/18/18 18:25) Other CANTALOPE Allergy (Uncoded 05/18/17 13:52) Hives CONCENTRATES Allergy (Uncoded 05/18/17 13:52) Hives EGGPLANT Allergy (Uncoded 05/18/17 13:52) Hives MOLD Allergy (Uncoded 05/18/17 13:52) Unknown PROCESSED FOODS Allergy (Uncoded 05/18/17 13:52) Hives Procedures: None - Type of Care/Length of Stay Estimated LOS: Convalescent Care Less Than 30 days Type of Care Needed: Skilled Rehab Potential: Fair Prognosis: Fair - Additional Orders/Day of Discharge Day of Discharge: 03/22/18 - Dietary and Speech Recommendations Dietitian Recommendations/Changes: Rec diet change to regular, gluten free. Will provide Ensure Enlive 120 mL 4x/day w/ medpass. - Follow Up Care Primary Care Physician: Doyle Swenson MD [Primary Care Provider] - 1 Week Please follow up with your Primary Care Physician in: 1 week Please Follow Up With: Evin Mora MD When: 1-2 weeks 03/22/18 1121 <Electronically signed by Fely Jimenez MD> Date Fely Jimenez MD CC: Hussein Swenson MD Signed CBC W/DIFF, AUTOMATED Collected: 03/21/2018 Status: F Source: [place] 8:53 AM [facility] [place] TYPE CODE TESTS RESULT OUT OF RANGE REFERENCE UNITS LAB L100.1000 4.4-11.0 K/mm3 Normal WBC 6.4 LAB L100.1200 4.2-5.4 M/mm3 Low RBC 3.31 LAB L100.1300 12.0-15.0 g/dl Low HGB 10.2 LAB L100.1400 37-47 % Low HCT 31.9 LAB L100.1500 81-99 fL Normal MCV 96.4 LAB L100.1600 27.0-32.0 pg Normal MCH 30.8 LAB L100.1700 32-36 g/gl Normal MCHC 32.0 LAB L100.1810 11.6-14.6 % Normal RDW CV 12.6 LAB L100.1820 35.1-43.9 fl Normal RDW SD 42.8 LAB L100.1900 150-450 K/mm3 Normal PLT 213 LAB L100.2000 6.2-12.0 fl Normal MPV 9.3 LAB L100.2100 47-70 % Normal NEUT% 65.4 LAB L100.2200 19-41 % Normal LY% 21.2 LAB L100.2300 0-10 % High MONO% 11.2 LAB L100.2400 0-5 % Normal EO% 1.7 LAB L100.2500 0-1 % Normal BASO% 0.3 LAB L100.2550 0.0-0.9 % Normal IM GRAN % 0.200 Result Comment: IG% - Immature Granulocytes (promyelocytes, myelocytes and metamyelocytes) > 1% indicates that a LEFT SHIFT is Present. LAB L100.2620 2.0-7.7 X10 3/uL Normal Absolute Neut 4.2 LAB L100.2720 0.83-4.51 X10 3/ul Normal Absolute Lymph 1.36 Performed By: #### L100.0100 #### [facility] [address] [place], [address] BASIC METABOLIC Collected: 03/21/2018 Status: F Source: [place] PROFILE ([facility]) 8:53 AM [facility] Order Comment: 'TROP' Serial specimen #1, #2 or #3: 1 'TROP' Serial specimen #1, #2, #3, or #4: 1 TYPE CODE TESTS RESULT OUT OF RANGE REFERENCE UNITS LAB L501.0100 74-106 mg/dL Normal GLU 93 Result Comment: Please note revised GLUCOSE reference range effective 2017. LAB L501.1000 7-18 mg/dL Normal BUN 18 LAB L501.1100 0.55-1.02 mg/dL Normal CREAT,SERUM 0.76 Result Comment: The validity of the calculated GFR AND GFRAA in patients over 70 years has not been determined. Clinical correlation is essential. LAB L501.1110 >60 mL/min Normal EST GFR 77 Result Comment: Non- GFR Calc LAB L501.1115 >60 mL/min Normal EST GFR - AA 93 Result Comment: GFR Calc LAB L501.1255 ml/min Normal Estimated CRCL 33.29 LAB L501.1300 10-20 RATIO High BUN/CRE 23.6 LAB L501.2200 8.5-10 mg/dL Low .1 CA 7.2 LAB L501.5300 136-14 mmol/L Normal 5 NA 138 LAB L501.5600 3.5-5. mmol/L Normal 1 K 4.7 LAB L501.5900 98-107 mmol/L Normal CL 107 LAB L501.6100 21.0-3 mmol/L Normal 2.0 CO2 24.0 LAB L501.6200 5-15 Normal GAP 7 Performed By: #### L500.2500, L501.4010 #### [facility] [address] [place], [address] TROPONIN-I Collected: 03/21/2018 Status: F Source: [place] 8:53 AM [facility] Order Comment: 'TROP' Serial specimen #1, #2 or #3: 1 'TROP' Serial specimen #1, #2, #3, or #4: 1 TYPE CODE TESTS RESULT OUT OF RANGE REFERENCE UNITS LAB L501.4010 <0.045 ng/mL Normal < 0.015 TROPONIN-I Result Comment: TROPONIN-I EXPECTED VALUES <0.045 Negative 0.045 - 0.590 Consistent with Cardiac Damage > OR = 0.600 Critical Value Not every elevated troponin is indicative of AL. These values should be used with clinical judgement in examining the patient's clinical picture for diagnosis. To establish a diagnosis of AL versus myocardial injury, there must be a demonstrated rise and/or fall in the troponin values, in addition to ischemic symptoms, EKG changes, new regional wall motion abnormality, and/or angiographical evidence. PLEASE NOTE: REFERENCE RANGES EDITED 17 Performed By: #### L500.2500, L501.4010 #### [facility] [address] [place], [address] ABDOMEN SINGLE VIEW Observed: 03/20/2018 Status: F Source: [place] (PORTABLE) 4:16 PM [facility] Imaging Services [address] [place] [address] Abdomen Single View (Portable) MR#: [id number] Acct: [id number] Name: JOYCE SOLOMON Rep #: [id number] : 1935 F 82 From: Rajendra Ponce MD PCP: Hussein Swenson MD Status: ADM IN Study: Abdomen Single View (Portable) Date of Exam: 03/20/18 Exam# [id number] Ordering Dr: Fely Jimenez MD STUDY: X-RAY - ABDOMEN/PELVIS REASON FOR EXAM: Female, 82 years old. Nausea, abdominal pain TECHNIQUE: Two AP supine views of the abdomen and pelvis. COMPARISON: None. FINDINGS: Normal visualized lung bases. There is a large amount of right-sided colonic stool. There is no demonstrated free abdominal air. The visualized liver, spleen and kidneys are grossly normal in size and morphology. Normal soft tissue structures. There are degenerative changes of the right hip joint. RAD/Abdomen Single View (Portable) IMPRESSION: Large amount of stool in the right colon consistent with constipation. There is no evidence of ileus or obstruction. There are degenerative changes of the right hip joint. Electronically Signed: Rajendra Ponce MD at 16:45 EST , Service support , CC: Hussein Swenson MD; Fely Jimenez MD Culinary Director: Signed BEDSIDE GLUCOSE Collected: 03/20/2018 Status: F Source: [place] 7:43 AM [facility] TYPE CODE TESTS RESULT OUT OF RANGE REFERENCE UNITS LAB L501.080 70-110 mg/dL Normal BEDSIDE GLU 106 Result Comment: MANAGEMENT OF PATIENT CARE PER NURSING PROTOCOL Performed By: #### L501.080 #### [facility] [address] [place], [place] [address] BASIC METABOLIC Collected: 03/20/2018 Status: F Source: [place] PROFILE (BMP) 7:00 AM [facility] TYPE CODE TESTS RESULT OUT OF RANGE REFERENCE UNITS LAB L501.0100 74-106 mg/dL Normal GLU 94 Result Comment: Please note revised GLUCOSE reference range effective 2017. LAB L501.1000 7-18 mg/dL Normal BUN 17 LAB L501.1100 0.55-1.02 mg/dL Normal CREAT,SERUM 0.76 Result Comment: The validity of the calculated GFR AND GFRAA in patients over 70 years has not been determined. Clinical correlation is essential. LAB L501.1110 >60 mL/min Normal EST GFR 78 Result Comment: Non- GFR Calc LAB L501.1115 >60 mL/min Normal EST GFR - AA 94 Result Comment: GFR Calc LAB L501.1255 ml/min Normal Estimated CRCL 33.29 LAB L501.1300 10-20 RATIO High BUN/CRE 22.5 LAB L501.2200 8.5-10 mg/dL Low .1 CA 7.3 LAB L501.5300 136-14 mmol/L Normal 5 NA 136 LAB L501.5600 3.5-5. mmol/L Normal 1 K 4.3 LAB L501.5900 98-107 mmol/L Normal CL 104 LAB L501.6100 21.0-3 mmol/L Normal 2.0 CO2 29.0 LAB L501.6200 5-15 Low GAP 3 Performed By: #### L500.2500 #### [facility] [address] [place], [address] CBC W/DIFF, AUTOMATED Collected: 03/20/2018 Status: F Source: [place] 7:00 AM [facility] TYPE CODE TESTS RESULT OUT OF RANGE REFERENCE UNITS LAB L100.1000 4.4-11.0 K/mm3 Normal WBC 6.1 LAB L100.1200 4.2-5.4 M/mm3 Low RBC 3.23 LAB L100.1300 12.0-15.0 g/dl Low HGB 9.7 LAB L100.1400 37-47 % Low HCT 31.4 LAB L100.1500 81-99 fL Normal MCV 97.2 LAB L100.1600 27.0-32.0 pg Normal MCH 30.0 LAB L100.1700 32-36 g/gl Low MCHC 30.9 LAB L100.1810 11.6-14.6 % Normal RDW CV 12.8 LAB L100.1820 35.1-43.9 fl Normal RDW SD 43.3 LAB L100.1900 150-450 K/mm3 Normal PLT 203 LAB L100.2000 6.2-12.0 fl Normal MPV 10.2 LAB L100.2100 47-70 % Normal NEUT% 67.4 LAB L100.2200 19-41 % Low LY% 18.9 LAB L100.2300 0-10 % High MONO% 11.7 LAB L100.2400 0-5 % Normal EO% 1.3 LAB L100.2500 0-1 % Normal BASO% 0.5 LAB L100.2550 0.0-0.9 % Normal IM GRAN % 0.200 Result Comment: IG% - Immature Granulocytes (promyelocytes, myelocytes and metamyelocytes) > 1% indicates that a LEFT SHIFT is Present. LAB L100.2620 2.0-7.7 X10 3/uL Normal Absolute Neut 4.1 LAB L100.2720 0.83-4.51 X10 3/ul Normal Absolute Lymph 1.15 Performed By: #### L100.0100 #### [facility] [address] [place], [place], [address] PROTHROMBIN TIME W/INR Collected: 03/20/2018 Status: F Source: [place] 7:00 AM [facility] TYPE CODE TESTS RESULT OUT OF RANGE REFERENCE UNITS LAB L300.4150 11.7-14.9 SECONDS High PROTIME 30.1 LAB L300.4200 Normal INR 2.9 Performed By: #### L300.3900 #### [facility] Laboratory [address] [place], [place], [address] PROTHROMBIN TIME W/INR Collected: 03/19/2018 Status: F Source: [place] 6:06 AM [facility] TYPE CODE TESTS RESULT OUT OF RANGE REFERENCE UNITS LAB L300.4150 11.7-14.9 SECONDS High PROTIME 27.0 LAB L300.4200 Normal INR 2.5 Performed By: #### L300.3900 #### [facility] Laboratory [address] [facility] [place], [address] CBC W/DIFF, AUTOMATED Collected: 03/19/2018 Status: F Source: [place] 6:06 AM [facility] TYPE CODE TESTS RESULT OUT OF RANGE REFERENCE UNITS LAB L100.1000 4.4-11.0 K/mm3 Normal WBC 8.4 LAB L100.1200 4.2-5.4 M/mm3 Low RBC 3.55 LAB L100.1300 12.0-15.0 g/dl Low HGB 11.0 LAB L100.1400 37-47 % Low HCT 34.0 LAB L100.1500 81-99 fL Normal MCV 95.8 LAB L100.1600 27.0-32.0 pg Normal MCH 31.0 LAB L100.1700 32-36 g/gl Normal MCHC 32.4 LAB L100.1810 11.6-14.6 % Normal RDW CV 12.5 LAB L100.1820 35.1-43.9 fl Normal RDW SD 42.4 LAB L100.1900 150-450 K/mm3 Normal PLT 235 LAB L100.2000 6.2-12.0 fl Normal MPV 10.2 LAB L100.2100 47-70 % High NEUT% 82.4 LAB L100.2200 19-41 % Low LY% 11.9 LAB L100.2300 0-10 % Normal MONO% 5.0 LAB L100.2400 0-5 % Normal EO% 0.4 LAB L100.2500 0-1 % Normal BASO% 0.2 LAB L100.2550 0.0-0.9 % Normal IM GRAN % 0.100 Result Comment: IG% - Immature Granulocytes (promyelocytes, myelocytes and metamyelocytes) > 1% indicates that a LEFT SHIFT is Present. LAB L100.2620 2.0-7.7 X10 3/uL Normal Absolute Neut 7.0 LAB L100.2720 0.83-4.51 X10 3/ul Normal Absolute Lymph 1.00 Performed By: #### L100.0100 #### [facility] Laboratory [address] [place], [place], [address] BASIC METABOLIC Collected: 03/19/2018 Status: F Source: [place] PRO[facility] ([facility]) 6:06 AM [facility] TYPE CODE TESTS RESULT OUT OF RANGE REFERENCE UNITS LAB L501.0100 74-106 mg/dL High GLU 125 Result Comment: Fasting Glucose result from 100 to 125 mg/dL suggests IMPAIRED HOMEOSTASIS per A.D.A. criteria. Please note revised GLUCOSE reference range effective 2017. LAB L501.1000 7-18 mg/dL High BUN 23 LAB L501.1100 0.55-1.02 mg/dL Normal CREAT,SERUM 0.76 Result Comment: The validity of the calculated GFR AND GFRAA in patients over 70 years has not been determined. Clinical correlation is essential. LAB L501.1110 >60 mL/min Normal EST GFR 77 Result Comment: Non- GFR Calc LAB L501.1115 >60 mL/min Normal EST GFR - AA 94 Result Comment: GFR Calc LAB L501.1255 ml/min Normal Estimated CRCL 33.29 LAB L501.1300 10-20 RATIO High BUN/CRE 30.2 LAB L501.2200 8.5-10 mg/dL Low .1 CA 8.2 LAB L501.5300 136-14 mmol/L Normal 5 NA 137 LAB L501.5600 3.5-5. mmol/L Normal 1 K 4.4 LAB L501.5900 98-107 mmol/L Normal CL 103 LAB L501.6100 21.0-3 mmol/L Normal 2.0 CO2 25.0 LAB L501.6200 5-15 Normal GAP 9 Performed By: #### L500.2500 #### [facility] Laboratory [address] [facility] [place], [address] HISTORY AND PHYSICAL Observed: 03/18/2018 Status: F Source: [place] EXAM 11:16 PM [facility] Medical Records Department [address] [place] [address] History and Physical 03/18/187 MR#: [id number] Acct: [id number] Name: JOYCE SOLOMON Rep #: [id number] : 1935 82 From: Charles Sullivan MD PCP: Hussein Swenson MD Status: ADM [place] Y Location: [place] [address] Problem List (1) Chronic a-fib Status: Chronic (2) Multiple fractures of ribs, left side, initial encounter for closed fracture Status: Acute (3) Hypertensive emergency Status: Chronic (4) Headache Status: Chronic Qualifiers: Headache type: unspecified Headache chronicity pattern: acute headache Intractability: intractable Qualified Code(s): R51 - Headache; R51 - Headache (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 fib on Coumadin, hypertension came to ER after she fell down on left flank and upper back. Apparently, patient lost her balance while reaching over her bathtub and fell back against a door over left side of flank although she does not remember accurately. She is certain that she was awake and did not lose consciousness. Denies head injury. Patient had x-rays Ribs x-rays were done in ER and shows minimally displaced fracture on the lateral aspect of left fifth through eighth ribs. Possible nondisplaced fracture in the left lateral fourth rib. No evidence of pneumothorax or pleural effusion. The patient denies history of COPD, asthma but she has sleep apnea and uses CPAP. She has never been a smoker. Basic lab work shows leukocytosis 13.2 thousand, BUN 27 otherwise unremarkable. INR 2.6. 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) History of thyroidectomy (Chronic) History of parathyroidectomy (Chronic) History of thymectomy (Chronic) Benign essential HTN (Chronic) New onset a-fib (Chronic) Community acquired pneumonia (Chronic) Medical History: Medical History (Last Reviewed 09/18/17 @ 13:02 by Evin Mora MD) A-fib I48.91 Arthritis M19.90 Difficulty balancing R29.818 Fatigue R53.83 HTN (hypertension) I10 Heart disease I51.9 Limb weakness R29.898 Migraines G43.909 Pneumonia J18.9 SOB (shortness of breath) R06.02 Shoulder pain M25.519 Thyroid disease E07.9 Allergies beet [Beet] Allergy (Verified 03/18/18 18:25) Hives levofloxacin [From Levaquin] Allergy (Verified 03/18/18 18:25) Unknown Penicillins Allergy (Verified 03/18/18 18:25) Unknown wheat Allergy (Verified 03/18/18 18:25) Hives gabapentin [From Neurontin] Adverse Reaction (Verified 03/18/18 18:25) Other meloxicam [From Mobic] Adverse Reaction (Verified 03/18/18 18:25) Other risedronate sodium [From Actonel] Adverse Reaction (Verified 03/18/18 18:25) Other CANTALOPE Allergy (Uncoded 05/18/17 13:52) Hives CONCENTRATES Allergy (Uncoded 05/18/17 13:52) Hives EGGPLANT Allergy (Uncoded 05/18/17 13:52) Hives MOLD Allergy (Uncoded 05/18/17 13:52) Unknown PROCESSED FOODS Allergy (Uncoded 05/18/17 13:52) Hives Home Medications: Ambulatory Orders Medication Instructions Recorded Calcium Carb/Vitamin D 1 tab PO BID 02/26/13 [Caltrate-600 With Vit D Tab] Aspirin E.C. [Ecotrin] 81 mg PO DAILY@0800 #60 tab 07/29/13 Surgical History: Surgical History (Last Reviewed 09/18/17 @ 13:02 by Evin Mora MD) History of thyroid surgery Z98.890 History of tonsillectomy Z98.890, Z90.89 Hx of appendectomy Z98.890, Z90.49 Hx of bilateral cataract extraction Z98.41, Z98.42 Hx of cholecystectomy Z98.890, Z90.49 Surgical History: - - Thyroidectomy Parathyroidectomy Thyroidectomy Smoking Status: Never smoker Alcohol: None - *Family History Paternal Family History: Family History (Last Reviewed 09/18/17 @ 13:02 by Evin Mora MD) Other Diabetes Heart disease History Items: No pertinent history Sibling Family History: Family History (Last Reviewed 09/18/17 @ 13:02 by Evin Mora MD) Other Diabetes Heart disease History Items: Heart Disease - Brother Review of Systems Constitutional: Reports: Weakness. Denies: Chills, Fever, Weight Change HEENT: Denies: Head Aches, Sinus Congestion, Sinus Drainage Cardiovascular: Reports: Chest Pain - Localized rib pain on the left upper back near subscapular area. Denies: Palpitations Respiratory: Reports: Shortness of breath upon exertion. Denies: Cough, Shortness of breath at rest, Sputum production Gastrointestinal: Denies: Abdominal Pain, Nausea, Vomiting Genitourinary: Denies: Dysuria Musculoskeletal: Reports: Back Pain, Joint Pain, Joint stiffness. Denies: Joint Tenderness Skin: Denies: Rash, Wounds Neurological: Reports: Balance problems, Incoordination. Denies: Focal weakness, Numbness, Tingling Psychiatric: Denies: Anxiety, Depression, Homicidal Ideations, Suicidal Ideations Hematologic/ Lymphatic: Denies: Easy Bruising, Easy Bleeding VTE Information - Inpt Only VTE Present on Admission: No VTE Mechan Device Prophylaxis: None VTE Pharm Prophylaxis ordered?: Yes Reason prophylaxis not ordered:: Procedure Not Indicated - Already on Coumadin Patient Problems: Active and Suspected Problems (Last Reviewed 09/18/17 @ 13:02 by Evin Mora MD) Multiple fractures of ribs, left side, initial encounter for closed fracture (Acute) - Physical Exam General: Alert, Oriented x3, Cooperative HEENT: Atraumatic, PERRLA, EOMI, Normocephalic Neck: Supple, No JVD, Negative Carotid Bruits Lungs: Clear to auscultation, No rhonchi, No wheeze, No rales, Diminished - Air entry diminished mainly on left lower chest posteriorly probably secondary to decreased inspiratory effort due to pain, - - Mild shortness of breath on deep breathing or movement Cardiovascular: Normal S1, Normal S2, No murmurs, Irregular Rate Abdomen: Bowel Sounds Present, Soft, Non Tender, Non-Distended Extremities: Capillary Refill Less than 3 Seconds, Edema - Chronic bilateral lower extremity edema/lymphedema, no change recently Skin: No rashes, No breakdown Musculoskeletal: Arthritic Changes, Muscle Wasting Neurological: Cranial nerves II-XII grossly intact, Neuro grossly intact Psych/Mental Status: Normal Affect, Appropriate Vital Signs Temp Pulse Resp BP Pulse Ox 97.6 F L 77 118 H 226/71 H 98 03/18/18 18:26 03/18/18 18:26 03/18/18 18:26 03/18/18 18:26 03/18/18 18:26 Oxygen Delivery Method Room Air Weight: 182 lb 1.629 oz Body Mass Index (BMI) 34.4 Finger Stick Blood Glucose 151 Laboratory Tests Past 24 Hrs PT 28.1 H INR 2.6 Assessment/Plan All Active Problems (Last Reviewed 09/18/17 @ 13:02 by Evin Mora MD) Multiple fractures of ribs, left side, initial encounter for closed fracture (Acute) The patient is a 82 year old F with history of chronic A. fib on Coumadin, hypertension came to ER after she fell down on left flank and upper back. Apparently, patient lost her balance while reaching over her bathtub and fell back against a door over left side of flank although she does not remember accurately. She is certain that she was awake and did not lose consciousness. Denies head injury. Patient had x-rays Ribs x-rays were done in ER and shows minimally displaced fracture on the lateral aspect of left fifth through eighth ribs. Possible nondisplaced fracture in the left lateral fourth rib. No evidence of pneumothorax or pleural effusion. The patient denies history of COPD, asthma but she has sleep apnea and uses CPAP. She has never been a smoker. Basic lab work shows leukocytosis 13.2 thousand, BUN 27 otherwise unremarkable. INR 2.6. 1. Fall with consequent left fifth through eighth ribs fracture on the lateral aspect posteriorly: [facility] Incentive spirometry. On chest x-ray there is no evidence of pneumothorax or pleural effusion or flail ribs syndrome. IV fluid normal saline as patient is mildly dehydrated. 2. Chronic A. fib on Coumadin: INR is therapeutic. Heart rate is controlled. Continue atenolol 25 mg. Patient is on both aspirin and Coumadin will hold aspirin for now. There is no history of coronary artery disease. Twelve-lead EKG ordered 3. Hypertension: Blood pressure is controlled. 4. Other chronic comorbidities include history of thyroidectomy and parathyroidectomy, degenerative joint disease, bilateral lower extremity edema/lymphedema decreased functional capacity: PT and OT ordered. Home medication reconciliation done. Labs ordered. Multiple comorbidities complicates the present care and expect difficult and delay recovery Clinical Impression(s) from Imaging Studies Ribs w/Chest X-Ray 03/18/18 19:00 IMPRESSION: RIBS: Minimally displaced fractures are seen in the lateral aspects of the left fifth through eighth ribs. There may be a nondisplaced fracture in the lateral left fourth rib. CHEST: There is no evidence of pneumothorax or pleural effusion. 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 Code Visit OBSV E AND M: 24408 Initial observation care L3 03/18/18 2316 <Electronically signed by Charles Sullivan MD> Date Charles Sullivan MD Cosigner Signature: Date (if applicable) CC: Hussein Swenson MD; Chrales Sullivan MD Signed CBC W/DIFF, AUTOMATED Collected: 03/18/2018 Status: F Source: [place] 10:35 PM [facility] [place] TYPE CODE TESTS RESULT OUT OF RANGE REFERENCE UNITS LAB L100.1000 4.4-11.0 K/mm3 High WBC 13.2 LAB L100.1200 4.2-5.4 M/mm3 Low RBC 3.93 LAB L100.1300 12.0-15.0 g/dl Normal HGB 12.0 LAB L100.1400 37-47 % Normal HCT 37.0 LAB L100.1500 81-99 fL Normal MCV 94.1 LAB L100.1600 27.0-32.0 pg Normal MCH 30.5 LAB L100.1700 32-36 g/gl Normal MCHC 32.4 LAB L100.1810 11.6-14.6 % Normal RDW CV 12.8 LAB L100.1820 35.1-43.9 fl High RDW SD 44.3 LAB L100.1900 150-450 K/mm3 Normal PLT 264 LAB L100.2000 6.2-12.0 fl Normal MPV 9.9 LAB L100.2100 47-70 % High NEUT% 85.3 LAB L100.2200 19-41 % Low LY% 8.0 LAB L100.2300 0-10 % Normal MONO% 6.1 LAB L100.2400 0-5 % Normal EO% 0.1 LAB L100.2500 0-1 % Normal BASO% 0.2 LAB L100.2550 0.0-0.9 % Normal IM GRAN % 0.300 Result Comment: IG% - Immature Granulocytes (promyelocytes, myelocytes and metamyelocytes) > 1% indicates that a LEFT SHIFT is Present. LAB L100.2620 2.0-7.7 X10 3/uL High Absolute Neut 11.3 LAB L100.2720 0.83-4.51 X10 3/ul Normal Absolute Lymph 1.06 Performed By: #### L100.0100 #### [facility] Laboratory [address] [facility] [place], [place], [address] BASIC METABOLIC Collected: 03/18/2018 Status: F Source: [place] PROFILE ([facility]) 10:35 PM [facility] [place] TYPE CODE TESTS RESULT OUT OF RANGE REFERENCE UNITS LAB L501.0100 74-106 mg/dL High GLU 109 Result Comment: Fasting Glucose result from 100 to 125 mg/dL suggests IMPAIRED HOMEOSTASIS per A.D.A. criteria. Please note revised GLUCOSE reference range effective 2017. LAB L501.1000 7-18 mg/dL High BUN 27 LAB L501.1100 0.55-1.02 mg/dL Normal CREAT,SERUM 0.70 Result Comment: The validity of the calculated GFR AND GFRAA in patients over 70 years has not been determined. Clinical correlation is essential. LAB L501.1110 >60 mL/min Normal EST GFR 85 Result Comment: Non- GFR Calc LAB L501.1115 >60 mL/min Normal EST GFR - AA 103 Result Comment: GFR Calc LAB L501.1255 ml/min Normal Estimated CRCL 33.29 LAB L501.1300 10-20 RATIO High BUN/CRE 38.5 LAB L501.2200 8.5-10 mg/dL Normal .1 CA 8.5 LAB L501.5300 136-14 mmol/L Normal 5 NA 136 LAB L501.5600 3.5-5. mmol/L Normal 1 K 4.1 LAB L501.5900 98-107 mmol/L Normal CL 100 LAB L501.6100 21.0-3 mmol/L Normal 2.0 CO2 29.0 LAB L501.6200 5-15 Normal GAP 7 Performed By: #### L500.2500 #### [facility] Laboratory [address] [facility] [place], [address] EMERGENCY DEPARTMENT Observed: 03/18/2018 Status: F Source: [place] SUMMARY 9:01 PM [facility] Medical Records Department [address] [place] [address] Emergency Department Summary 03/18/182042 MR#: [id number] Acct: [id number] Name: JOYCE SOLOMON Rep #: [id number] : 1935 82 From: Trisha Simons MD PCP: Hussein Swenson MD Status: REG ER ADDENDUM by TRISHA SIMONS MD on 03/18/18 at 2101 Patient getting to bedside commode did okay, however getting her up to discharge her, she was in a lot of pain and was not able to walk she has no one at home to help her at this time, and family thinks admission would be best for her given her condition at this time. Plan is for admission to medical surgical for inpatient observation and further evaluation and pain control. 03/18/182100 Date Trisha Simons MD cc: Hussein Swenson MD * Signed History of Present Illness Chief Complaint: Fall Informant: Patient, Family Onset: Today Context: Sudden Onset - lost balance while reaching over bathtub, falling back against a door vs. her left mid-back Timing: Continuous Quality: pain Location: left mid-back Current Severity: Severe Maximum Severity: Severe Worsened by: moving, deep inspiration Relieved by: rest Associated Symptoms: mild sob due to pain w/ inspiration Narrative: Patient denies head injury or any other injury. She kind of fell onto her buttocks, and catching herself with her right upper extremity but denies any extremity or wrist pain. No lightheadedness, chest pain, or other prodromal symptoms. She also states that she might have slipped on a nearby throw rug. - Past Medical History (1) Chronic a-fib Status: Chronic (2) Benign essential HTN Status: Chronic Past Medical History - Allergies and Home Meds Allergies/Adverse Reactions: Allergies beet [Beet] Allergy (Verified 03/18/18 18:25) Hives levofloxacin [From Levaquin] Allergy (Verified 03/18/18 18:25) Unknown Penicillins Allergy (Verified 03/18/18 18:25) Unknown wheat Allergy (Verified 03/18/18 18:25) Hives gabapentin [From Neurontin] Adverse Reaction (Verified 03/18/18 18:25) Other meloxicam [From Mobic] Adverse Reaction (Verified 03/18/18 18:25) Other risedronate sodium [From Actonel] Adverse Reaction (Verified 03/18/18 18:25) Other CANTALOPE Allergy (Uncoded 05/18/17 13:52) Hives CONCENTRATES Allergy (Uncoded 05/18/17 13:52) Hives EGGPLANT Allergy (Uncoded 05/18/17 13:52) Hives MOLD Allergy (Uncoded 05/18/17 13:52) Unknown PROCESSED FOODS Allergy (Uncoded 05/18/17 13:52) Hives Primary Care Physician: Doyle Swenson MD [Primary Care Provider] - Surgical History: - - Thyroidectomy Parathyroidectomy Thyroidectomy Smoking Status: Never smoker Alcohol: None - Family History Paternal Family History: Family History (Last Reviewed 09/18/17 @ 13:02 by Evin Mora MD) Other Diabetes Heart disease Family History: Reports: No pertinent history Sibling Family History: Family History (Last Reviewed 09/18/17 @ 13:02 by Evin Mora MD) Other Diabetes Heart disease Family History: Reports: Heart Disease - Brother Review of Systems General: Denies: Chills, Fever Eyes: Denies: Visual changes - bilaterally, Diplopia Cardiovascular: Denies: Chest pain, Palpitations Respiratory: Reports: Dyspnea. Denies: Cough Gastrointestinal: Denies: Abdominal pain, Nausea, Vomiting, Diarrhea Genitourinary: Denies: Hematuria, Frequency Musculoskeletal: Reports: Back pain. Denies: Neck pain, Extremity Pain Skin: Denies: Rash, Wounds Hematologic: Reports: Easy bruising, Easy bleeding Physical Exam Vital Signs/Narrative: Vital Signs 03/18/18 18:26 97.6 F L 75 118 H 226/71 H 98 Inital Vital Signs reviewed: Yes General: Well nourished, Well developed Head: Normocephalic, Atraumatic Eyes: Perrl, EOMI ENT: Moist mucous membranes, No rhinorrhea Neck: Supple, Nontender Cardiovascular: No murmurs, Irregular. Negative for: Tachycardia Respiratory: No distress, Chest nontender, Diminished - At bases Abdomen: Soft, Nontender, Nondistended, Normal bowel sounds Back: Normal Inspection, - - Very tender throughout the left mid thoracic rib cage, just below the tip of the scapula and not including the scapula. No crepitance or subcutaneous emphysema. Negative for: Spinal tenderness Extremities: Nontender, Edema - 1+ BLE, - - Full range of motion all joints of all 4 extremities without pain Skin: Normal color, No rash Neurological: Alert, Oriented x3, Cranial nerves II-XII grossly intact, Normal Strength, Normal Sensation Psychological: Normal affect Diagnostic/Tx/Re-eval Impressions Ribs w/Chest X-Ray 03/18/18 19:00 IMPRESSION: RIBS: Minimally displaced fractures are seen in the lateral aspects of the left fifth through eighth ribs. There may be a nondisplaced fracture in the lateral left fourth rib. CHEST: There is no evidence of pneumothorax or pleural effusion. 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 Electronically Signed: Jaja Ortiz MD at 20:30 EST Tel Direct: [phone], Service support , 03/18/18 19:00 Ribs Uni Min 3V w/PA Chest [RAD] Stat Laboratory Results PT 28.1 H INR 2.6 - Medical Decision Making X-ray showed multiple rib fractures. Her pain is a lot better after oxycodone 10 mg. She states that she will be okay to go home and was able to get up out of bed with some light assistance. She will be given a prescription for oxycodone and an incentive spirometer with instructions. ED Disposition - Plan for ED Patient: Disposition: Home or Assisted Living Chief Complaint: Fall Diagnosis: Multiple fractures of ribs, left side, initial encounter for closed fracture Instructions: ED Mechanical Fall, ED Fx Rib Prescriptions: Oxycodone HCl/Acetaminophen [Percocet 5/325] 1 tablet PO Q4H PRN PRN 4 Days #24 tablet PRN Reason: Pain Referrals: Doyle Swenson MD [Primary Care Provider] - 1 Week Additional Instructions: Your INR is 2.6 today. What to do if you have Problems For any increased pain, shortness of breath, bleeding, nausea or vomiting, chest pain, or any unexpected problems, contact your Primary Care Provider. Call [facility] ([phone]) or report to the closest Emergency Room. Call 911 if necessary. 03/18/182048 <Electronically signed by Trisha Simons MD> Date Trisha Simons MD Cosigner Signature (If Indicated): Date CC: Hussein Swenson MD PROTHROMBIN TIME W/INR Collected: 03/18/2018 Status: F Source: [place] 7:44 PM [facility] TYPE CODE TESTS RESULT OUT OF RANGE REFERENCE UNITS LAB L300.4150 11.7-14.9 SECONDS High PROTIME 28.1 LAB L300.4200 Normal INR 2.6 Performed By: #### L300.3900 #### [facility] Laboratory [address] [facility] [place], [place], [address] RIBS UNI MIN 3V Observed: 03/18/2018 Status: F Source: [place] W/PA CHEST 7:01 PM [facility] Imaging Services [address] [place] [id number] Ribs Uni Min 3V w/PA Chest MR#: [id number] Acct: [id number] Name: JOYCE SOLOMON Rep #: [id number] : 1935 F 82 From: Jaja Ortiz MD PCP: Hussein Swenson MD Status: REG ER Study: Ribs Uni Min 3V w/PA Chest Date of Exam: 03/18/18 Exam# [id number] Ordering Dr: Trisha Simons MD STUDY: X-RAY - UNILATERAL RIBS ( LEFT ) WITH CHEST REASON FOR EXAM: Female, 82 years old. Pain after fall TECHNIQUE - RIBS: Three view(s) of the ribs were obtained. TECHNIQUE - CHEST: A single frontal view of the chest was obtained. COMPARISON: Chest radiograph dated December 25, 2016 FINDINGS - RIBS: There is cortical disruption in the lateral aspects of the left fifth through eighth ribs and possibly left fourth rib. FINDINGS - CHEST: The lungs are hyperinflated. There are increased interstitial markings throughout the lungs. There are no focal airspace opacities. There is no demonstrated pleural abnormality. The cardiac silhouette is normal in size. The mediastinum and hilar regions are unremarkable. Normal visualized pulmonary arteries. There is atherosclerotic calcification of the thoracic aorta. There are diffuse degenerative changes of the visualized spine. There is an old fracture in the left clavicle. There is no demonstrated abnormality of the visualized upper abdomen. RAD/Ribs Uni Min 3V w/PA Chest IMPRESSION: RIBS: Minimally displaced fractures are seen in the lateral aspects of the left fifth through eighth ribs. There may be a nondisplaced fracture in the lateral left fourth rib. CHEST: There is no evidence of pneumothorax or pleural effusion. 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 Electronically Signed: Jaja Ortiz MD at 20:30 EST Tel Direct: [phone], Service support , CC: TRISHA SIMONS MD; Hussein Swenson MD Culinary Director: Signed PROTHROMBIN TIME W/INR Collected: 03/11/2018 Status: F Source: [place] 8:27 AM [facility] TYPE CODE TESTS RESULT OUT OF RANGE REFERENCE UNITS LAB L300.4150 11.7-14.9 SECONDS High PROTIME 26.9 LAB L300.4200 Normal INR 2.5 Performed By: #### L300.3900 #### [facility] [address] [place], [place], [address] CBC-COMPLETE BLOOD CNT Collected: 03/11/2018 Status: F Source: MERY NO DIFF 8:26 AM [facility] TYPE CODE TESTS RESULT OUT OF RANGE REFERENCE UNITS LAB L100.1000 4.4-11.0 K/mm3 Normal WBC 5.4 LAB L100.1200 4.2-5.4 M/mm3 Low RBC 4.04 LAB L100.1300 12.0-15.0 g/dl Normal HGB 12.1 LAB L100.1400 37-47 % Normal HCT 39.2 LAB L100.1500 81-99 fL Normal MCV 97.0 LAB L100.1600 27.0-32.0 pg Normal MCH 30.0 LAB L100.1700 32-36 g/gl Low MCHC 30.9 LAB L100.1810 11.6-14.6 % Normal RDW CV 13.2 LAB L100.1820 35.1-43.9 fl High RDW SD 47.2 LAB L100.1900 150-450 K/mm3 Normal PLT 270 LAB L100.2000 6.2-12.0 fl Normal MPV 10.3 Performed By: #### L100.0500, L500.4050, L500.4100, L501.9520, L506.1000 #### [facility] [address] [place], [address] COMPREHENSIVE METABOLIC Collected: 03/11/2018 Status: F Source: MERY CROWDER 8:26 AM [facility] Order Comment: Order Date: 09/01/17 Order Info: 0667-1 - [facility] TYPE CODE TESTS RESULT OUT OF RANGE REFERENCE UNITS LAB L501.0100 74-106 mg/dL Normal GLU 85 Result Comment: Please note revised GLUCOSE reference range effective 2017. LAB L501.1000 7-18 mg/dL High BUN 24 LAB L501.1100 0.55-1.02 mg/dL Normal CREAT,SERUM 0.84 Result Comment: The validity of the calculated GFR AND GFRAA in patients over 70 years has not been determined. Clinical correlation is essential. LAB L501.1110 >60 mL/min Normal EST GFR 69 Result Comment: Non- GFR Calc LAB L501.1115 >60 mL/min Normal EST GFR - AA 84 Result Comment: GFR Calc LAB L501.1300 10-20 RATIO High BUN/CRE 28.6 LAB L501.1500 6.4-8.2 g/dL T Normal PROT 7.6 LAB L501.1800 3.2-5.0 g/dL Normal ALB 3.7 LAB L501.1950 2.2-4.2 g/dL Normal GLOB 3.9 LAB L501.2000 0.9-2.4 RATIO Normal A/G 0.9 LAB L501.2200 8.5-10.1 mg/dL Low CA 8.4 LAB L501.4100 15-37 U/L Normal AST 22 LAB L501.4305 45-117 U/L Normal ALK P 58 LAB L501.4405 13-56 U/L Normal ALT 22 LAB L501.4600 0.20-1.00 mg/dL T Normal BILI 0.40 LAB L501.5300 136-145 mmol/L NA Normal 141 LAB L501.5600 3.5-5.1 mmol/L K Normal 3.9 LAB L501.5900 98-107 mmol/L CL Normal 102 LAB L501.6100 21.0-32.0 mmol/L High CO2 33.0 LAB L501.6200 5-15 Normal GAP 6 Performed By: #### L100.0500, L500.4050, L500.4100, L501.9520, L506.1000 #### [facility] [address] [place], [address] LIPID PROFILE Collected: 03/11/2018 Status: F Source: MERY 8:26 AM [facility] Order Comment: Order Date: 09/01/17 Order Info: 0667-1 - BMP TYPE CODE TESTS RESULT OUT OF RANGE REFERENCE UNITS LAB L501.4900 200 mg/dL High CHOL 230 Result Comment: <200 mg/dL Desirable 200-240 mg/dL Borderline >240 mg/dL High Risk LAB L501.5000 mg/dL Normal TRIG 68 Result Comment: The drugs N-Acetylcysteine and Metamizole may falsely depress this assay. Serum Triglycerides Reference Interval Normal <150 mg/dL Borderline high 150 - 199 mg/dL High 200 - 499 mg/dL Very High > or = 500 mg/dL LAB L501.6400 mg/dL Normal HDL 99 Result Comment: The drugs N-Acetylcysteine and Metamizole may falsely depress this assay. Reference Range HDL <40 mg/dL Low HDL Cholesterol HDL >or= 60 mg/dL High HDL Cholesterol LAB L501.6500 0-130 mg/dL Normal LDL 117 LAB L501.6600 5-40 mg/dL Normal VLDL 14 Performed By: #### L100.0500, L500.4050, L500.4100, L501.9520, L506.1000 #### [facility] [address] [place], [address] THYROID STIM HORMONE Collected: 03/11/2018 Status: F Source: [place] (TSH) 8:26 AM [facility] Order Comment: Order Date: 09/01/17 Order Info: 0667-1 - BMP TYPE CODE TESTS RESULT OUT OF RANGE REFERENCE UNITS LAB L501.9520 0.358-3.74 uIU/mL Normal TSH 1.20 Performed By: #### L100.0500, L500.4050, L500.4100, L501.9520, L506.1000 #### [facility] [address] [place], [address] VITAMIN D,25 HYDROXY Collected: 03/11/2018 Status: F Source: [place] 8:26 AM [facility] TYPE CODE TESTS RESULT OUT OF RANGE REFERENCE UNITS LAB L506.1000 29.95-100.01 ng/mL Normal Vitamin D 60.4 25-OH Result Comment: Vitamin D 25(OH) Status Range Deficiency <20 ng/mL (50nmol/L) Insuffciency 20 - 30 ng/mL (50 - 75 nmol/L) Sufficiency 30 - 100 ng/mL (75 - 250 nmol/L) Toxicity >100 ng/mL (>250 nmol/L) Performed By: #### L100.0500, L500.4050, L500.4100, L501.9520, L506.1000 #### [facility] [address] [place], [address] PROTHROMBIN TIME W/INR Collected: 02/25/2018 Status: F Source: MERY 10:06 AM [facility] TYPE CODE TESTS RESULT OUT OF RANGE REFERENCE UNITS LAB L300.4150 11.7-14.9 SECONDS High PROTIME 24.0 LAB L300.4200 Normal INR 2.1 Performed By: #### L300.3900 #### [facility] [address] [place], [address] CYTOSPIN ON FLUID Observed: 02/16/2018 Status: F Source: [place]ERY 1:45 PM [facility] Patient: JOYCE SOLOMON : 1935 (82/F) Acct Num: [id number] Phys: Adriana FRANKS,Nallely Unit Num: [id number] Loc: [facility] Specimen: [id number] Received: 02/17/18 - 1319 Spec Type: CYSPIN FL TISSUES 1 TISSUES: Urine COMMENT Correlation with clinical findings and appropriate follow up are necessary. CYTOLOGY GROSS Received is 20 ml of cloudy gold fluid labeled with the patient's name and and designated per the requisition as urine. Submitted for cytology preparation. / 02/17/18 TC:5 CPT: 72019 CYTOLOGY STUDY Slides are reviewed. The specimen predominantly consists of benign squamous cells and squamous metaplastic cells. DIAGNOSIS CYTOLOGY Urine for cytology (cytospin): Negative for malignant cells. SJ:perry 02/18/18 HEADER OPERATION: Not noted PRE-OP DIAGNOSIS: Microhematuria TISSUE SUBMITTED: Urine for cytology Signed Luis Enrique Ellis 02/18/18 <signature on file> Performed By: #### PCYSPIN #### [facility] [address] [place], [address] CYTOLOGY, BODY FLUID / Collected: 02/16/2018 Status: F Source: MERY CSF 1:45 PM [facility] Order Comment: Specimen Source: URINE TYPE CODE TESTS RESULT OUT OF RANGE REFERENCE UNITS LAB L350.1000 SEE Normal PATHOLOGY CYTOLOGY,BF REPORT /CSF Result Comment: Specimen submitted to Anatomical Pathology Department for testing. Performed By: #### L350.1000 #### [facility] [address] [place], [address] SHOULDER MIN 2 VIEWS Observed: 02/11/2018 Status: F Source: MERY 2:37 PM [facility] REPOSITORY [facility] Imaging Services [address] [place] [address] Shoulder min 2 Views MR#: [id number] Acct: [id number] Name: JOYCE SOLOMON Rep #: [id number] : 1935 F 82 From: Niranjan Hubbard MD PCP: Hussein Swenson MD Status: REG CLI Study: Shoulder min 2 Views Date of Exam: 02/11/18 Exam# [id number] Ordering Dr: Doyle Swenson MD STUDY: X-RAY - RIGHT SHOULDER REASON FOR EXAM: Female, 82 years old. Right shoulder pain, fall 2 days ago. TECHNIQUE: 4 view(s) of the shoulder. COMPARISON: None. FINDINGS: Thoracic structures within the field of view exhibit no acute process. There is a calcified granuloma of the right lower lung. There is pulmonary hyperlucency suggesting underlying COPD. There are very minimal degenerative features of the right-sided acromioclavicular joint. There are no degenerative features of the glenohumeral articulation. Osseous structures about the shoulder are mildly osteopenic, acutely intact, no dislocation. RAD/Shoulder min 2 Views IMPRESSION: No acute radiographic abnormality. Electronically Signed: Niranjan Hubbard, at 15:15 EDT Tel , Service support , CC: Hussein Swenson MD Culinary Director: Signed PROTHROMBIN TIME W/INR Collected: 02/04/2018 Status: F Source: MERY 10:22 AM [facility] REPOSITORY TYPE CODE TESTS RESULT OUT OF RANGE REFERENCE UNITS LAB L300.4150 11.7-14.9 SECONDS High PROTIME 24.4 LAB L300.4200 Normal INR 2.2 Performed By: #### L300.3900 #### [facility] [address] [place], [address] SCREENING MAMM (CAD), Observed: 01/16/2018 Status: F Source: [place] BIL 8:10 AM [facility] Imaging Services [address] [place] [address] SCREENING MAMM (CAD), BILAT MR#: [id number] Acct: [id number] Name: JOYCE SOLOMON Rep #: [id number] : 1935 F 82 From: Chris Clark MD PCP: Hussein Swenson MD Status: REG CLI Study: SCREENING MAMM (CAD), BILAT Date of Exam: 01/16/18 Exam# [id number] Ordering Dr: Doyle Swenson MD MAMMOGRAPHY - BILATERAL SCREENING REASON FOR EXAM: Female, 82 years old. Routine annual screening examination. PERTINENT HISTORY: Grandmother with breast cancer. TECHNIQUE: Digital bilateral breast cristopher (3D mammographic acquisition) in the CC and MLO projections. 2-D mediolateral oblique (MLO) and craniocaudad (CC) views of both breasts were obtained. CAD: Full Field Digital Mammography with Computer Added Detection was performed. COMPARISON: Comparison is made with prior examination dated November 21, 2016 and September 08, 2015. FINDINGS: Breast Composition: The breasts are heterogeneously dense, which may obscure small masses. There are no dominant masses or suspicious calcifications. No other significant abnormalities are identified. There has been no significant change since the prior study. BI/SCREENING MAMM (CAD), BILAT IMPRESSION: Stable bilateral screening mammogram. Yearly follow-up mammogram recommended. (A) ASSESSMENT CATEGORY: BIRADS Category 1: Negative. A letter regarding these results will be sent to the patient by the facility within 30 days. Approximately 10% of breast cancers are not detected by mammography. A normal mammogram should not delay biopsy of a clinically suspicious abnormality. [id number] Electronically Signed: Chris Clark MD at 9:31 EDT Tel [phone], Service support , CC: Hussein Swenson MD Culinary Director: Signed PROTHROMBIN TIME W/INR Collected: 01/14/2018 Status: F Source: [place] 10:19 AM [facility] TYPE CODE TESTS RESULT OUT OF RANGE REFERENCE UNITS LAB L300.4150 11.7-14.9 SECONDS High PROTIME 28.3 LAB L300.4200 Normal INR 2.6 Performed By: #### L300.3900 #### [facility] [address] [place], [address] PROTHROMBIN TIME W/INR Collected: 12/24/2017 Status: F Source: MERY 10:17 AM [facility] TYPE CODE TESTS RESULT OUT OF RANGE REFERENCE UNITS LAB L300.4150 11.7-14.9 SECONDS High PROTIME 29.5 LAB L300.4200 Normal INR 2.8 Performed By: #### L300.3900 #### [facility] [address] [facility] [place], [address] LOWER EXT ARTERIAL Observed: 12/19/2017 Status: F Source: MERY STUDY 8:00 PM [facility] Cardiovascular Services [address] [place] [address] 12/19/171953 MR#: [id number] Acct: [id number] Name: JOYCE SOLOMON Rep #: [id number] : 1935 82 From: Justin Murry MD Attending Dr: Hussein Swenson MD Status: REG CLI Ordering Dr: Date: 12/19/17 Location: [facility] Sex: F C Admitted: Arterial Study - Arterial Study Arterial Study: This is an 82-year-old female with a history of atrial fibrillation and hypertension. The patient presents with right calf pain and nocturnal cramping. Suspecting the presence of atherosclerotic peripheral arterial occlusive disease, the patient was brought to the noninvasive vascular laboratory at this time for the purpose of bilateral noninvasive lower extremity arterial assessment. Doppler signal assessment was used to evaluate the pulses at ankle level bilaterally. The posterior tibial and dorsalis pedis pulses were triphasic bilaterally. Segmental limb pressures were obtained at ankle level bilaterally. The right ankle pressure, as determined by posterior tibial pulse, was measured at 223 mmHg. The right ankle pressure, as determined by dorsalis pedis pulse, was measured at 197 mmHg. The left ankle pressure, as determined by posterior tibial pulse, was measured at 218 mmHg. The left ankle pressure, as determined by dorsalis pedis pulse, was measured at 203 mmHg. Resting ankle-brachial indices were calculated bilaterally. The resting right ankle-brachial index was calculated to be 1.19. The resting left ankle-brachial index was calculated to be 1.17. The patient was then ambulated in the hallway at a moderate pace for 5 minutes without complaints. Ankle pressures were obtained 1 minute following cessation of exercise. 1 minute following cessation of exercise, the right ankle pressure was measured at 222 mmHg, and the left ankle pressure was measured at 232 mmHg. Impression: Based upon the findings of this resting and exercise noninvasive lower extremity arterial study, there is no evidence of significant atherosclerotic peripheral arterial occlusive disease in the lower extremities bilaterally. Triphasic waveforms were noted at ankle level bilaterally. Resting ankle-brachial indices were bilaterally normal. Following a period of exercise, ankle pressures are maintained on the right, and augmented on the left, which are relatively normal physiological responses. In summary, this represents a relatively normal resting and exercise noninvasive lower extremity arterial study bilaterally. 12/19/171999 <Electronically signed by Justin Murry MD> Date Justin Murry MD CC: Hussein Swenson MD Date Dictated: 12/19/171953 Date Transcribed: 12/19/171953 Culinary Director: EDITH Wall PROTHROMBIN TIME W/INR Collected: 12/09/2017 Status: F Source: [place] 9:13 AM [facility] TYPE CODE TESTS RESULT OUT OF RANGE REFERENCE UNITS LAB L300.4150 11.7-14.9 SECONDS High PROTIME 27.7 LAB L300.4200 Normal INR 2.6 Performed By: #### L300.3900 #### [facility] [address] [place], [place], [address] PROTHROMBIN TIME W/INR Collected: 12/02/2017 Status: F Source: MERY 8:33 AM [facility] TYPE CODE TESTS RESULT OUT OF RANGE REFERENCE UNITS LAB L300.4150 11.7-14.9 SECONDS High PROTIME 32.7 LAB L300.4200 Normal INR 3.2 Performed By: #### L300.3900 #### [facility] [address] [place], [address] ERYTHROCYTE SED RATE Collected: 11/17/2017 Status: F Source: MERY 12:09 PM [facility] Order Comment: Order Date: 11/17/17 Order Info: 0184-1 - CBCD Order Info: 81173-5 - SED TYPE CODE TESTS RESULT OUT OF RANGE REFERENCE UNITS LAB L102.0000 0-30 mm/hr Normal SED RATE 10 Performed By: #### L101.9900, L100.0100, L503.0105, L506.1000, L500.4050, L501.9520, L505.7010 #### [facility] [address] [place], [place], [address] #### L3100.5475 #### [facility] (refer to report for specific site) refer to report for address and phone number CBC W/DIFF, AUTOMATED Collected: 11/17/2017 Status: F Source: MERY 12:09 PM [facility] Order Comment: Order Date: 11/17/17 Order Info: 0184-1 - CBCD Order Info: 83980-8 - SED TYPE CODE TESTS RESULT OUT OF RANGE REFERENCE UNITS LAB L100.1000 4.4-11.0 K/mm3 Normal WBC 6.0 LAB L100.1200 4.2-5.4 M/mm3 Low RBC 4.07 LAB L100.1300 12.0-15.0 g/dl Normal HGB 12.3 LAB L100.1400 37-47 % Normal HCT 38.7 LAB L100.1500 81-99 fL Normal MCV 95.1 LAB L100.1600 27.0-32.0 pg Normal MCH 30.2 LAB L100.1700 32-36 g/gl Low MCHC 31.8 LAB L100.1810 11.6-14.6 % Normal RDW CV 13.0 LAB L100.1820 35.1-43.9 fl High RDW SD 44.0 LAB L100.1900 150-450 K/mm3 Normal PLT 285 LAB L100.2000 6.2-12.0 fl Normal MPV 10.1 LAB L100.2100 47-70 % Normal NEUT% 62.5 LAB L100.2200 19-41 % Normal LY% 27.3 LAB L100.2300 0-10 % Normal MONO% 7.7 LAB L100.2400 0-5 % Normal EO% 1.5 LAB L100.2500 0-1 % Normal BASO% 0.8 LAB L100.2550 0.0-0.9 % Normal IM GRAN % 0.200 Result Comment: IG% - Immature Granulocytes (promyelocytes, myelocytes and metamyelocytes) > 1% indicates that a LEFT SHIFT is Present. LAB L100.2620 2.0-7.7 X10 3/uL Normal Absolute Neut 3.7 LAB L100.2720 0.83-4.51 X10 3/ul Normal Absolute Lymph 1.63 Performed By: #### L101.9900, L100.0100, L503.0105, L506.1000, L500.4050, L501.9520, L505.7010 #### [facility] [address] [place], [place], [address] #### L3100.5475 #### [facility] (refer to report for specific site) refer to report for address and phone number VITAMIN B12 Collected: 11/17/2017 Status: F Source: [place] 12:09 PM [facility] Order Comment: Order Date: 11/17/17 Order Info: 2132-9 - B12 Order Info: 72547-7 - VITD25 TYPE CODE TESTS RESULT OUT OF RANGE REFERENCE UNITS LAB L503.0105 211-911 pg/mL Normal Vitamin B12 437 Performed By: #### L101.9900, L100.0100, L503.0105, L506.1000, L500.4050, L501.9520, L505.7010 #### [facility] [address] [place], [address] #### L3100.5475 #### [facility] (refer to report for specific site) refer to report for address and phone number VITAMIN D,25 HYDROXY Collected: 11/17/2017 Status: F Source: [place] 12:09 PM [facility] Order Comment: Order Date: 11/17/17 Order Info: 2132-9 - B12 Order Info: 65977-0 - VITD25 TYPE CODE TESTS RESULT OUT OF RANGE REFERENCE UNITS LAB L506.1000 29.95-100.01 ng/mL Normal Vitamin D 49.8 25-OH Result Comment: Vitamin D 25(OH) Status Range Deficiency <20 ng/mL (50nmol/L) Insuffciency 20 - 30 ng/mL (50 - 75 nmol/L) Sufficiency 30 - 100 ng/mL (75 - 250 nmol/L) Toxicity >100 ng/mL (>250 nmol/L) Performed By: #### L101.9900, L100.0100, L503.0105, L506.1000, L500.4050, L501.9520, L505.7010 #### [facility] [address] [facility] [place], [address] #### L3100.5475 #### [facility] (refer to report for specific site) refer to report for address and phone number COMPREHENSIVE METABOLIC Collected: 11/17/2017 Status: F Source: [facility] 12:09 PM [facility] Order Comment: Order Date: 11/17/17 Order Info: [id number] - CMP Order Info: 3016-3 - TSH Order Info: 54293-7 - RA TYPE CODE TESTS RESULT OUT OF RANGE REFERENCE UNITS LAB L501.0100 74-106 mg/dL Normal GLU 91 Result Comment: Please note revised GLUCOSE reference range effective 2017. LAB L501.1000 7-18 mg/dL High BUN 22 LAB L501.1100 0.55-1.02 mg/dL Normal CREAT,SERUM 0.91 Result Comment: The validity of the calculated GFR AND GFRAA in patients over 70 years has not been determined. Clinical correlation is essential. LAB L501.1110 >60 mL/min Normal EST GFR 63 Result Comment: Non- GFR Calc LAB L501.1115 >60 mL/min Normal EST GFR - AA 76 Result Comment: GFR Calc LAB L501.1300 10-20 RATIO High BUN/CRE 24.1 LAB L501.1500 6.4-8.2 g/dL T Normal PROT 7.4 LAB L501.1800 3.2-5.0 g/dL Normal ALB 3.7 LAB L501.1950 2.2-4.2 g/dL Normal GLOB 3.7 LAB L501.2000 0.9-2.4 RATIO Normal A/G 1.0 LAB L501.2200 8.5-10.1 mg/dL CA Normal 8.8 LAB L501.4100 15-37 U/L Normal AST 24 LAB L501.4305 45-117 U/L Normal ALK P 57 LAB L501.4405 13-56 U/L Normal ALT 25 LAB L501.4600 0.20-1.00 mg/dL T Normal BILI 0.50 LAB L501.5300 136-145 mmol/L NA Normal 141 LAB L501.5600 3.5-5.1 mmol/L K Normal 4.3 LAB L501.5900 98-107 mmol/L CL Normal 102 LAB L501.6100 21.0-32.0 mmol/L Normal CO2 31.0 LAB L501.6200 5-15 Normal GAP 8 Performed By: #### L101.9900, L100.0100, L503.0105, L506.1000, L500.4050, L501.9520, L505.7010 #### [facility] [address] [place], [place], [address] #### L3100.5475 #### [facility] (refer to report for specific site) refer to report for address and phone number THYROID STIM HORMONE Collected: 11/17/2017 Status: F Source: [place] (TSH) 12:09 PM [facility] Order Comment: Order Date: 11/17/17 Order Info: [id number] - CMP Order Info: 3016-3 - TSH Order Info: 73436-0 - RA TYPE CODE TESTS RESULT OUT OF RANGE REFERENCE UNITS LAB L501.9520 0.358-3.74 uIU/mL Normal TSH 1.01 Performed By: #### L101.9900, L100.0100, L503.0105, L506.1000, L500.4050, L501.9520, L505.7010 #### [facility] [facility] [place], [address] #### L3100.5475 #### [facility] (refer to report for specific site) refer to report for address and phone number RHEUMATOID FACTOR Collected: 11/17/2017 Status: F Source: [place] 12:09 PM [facility] Order Comment: Order Date: 11/17/17 Order Info: [id number] - CMP Order Info: 3016-3 - TSH Order Info: 31335-2 - RA TYPE CODE TESTS RESULT OUT OF RANGE REFERENCE UNITS LAB L505.7010 <15 IU/mL Normal RHEUMATOID FAC < 10.0 Performed By: #### L101.9900, L100.0100, L503.0105, L506.1000, L500.4050, L501.9520, L505.7010 #### [facility] [place], [address] #### L3100.5475 #### [facility] (refer to report for specific site) refer to report for address and phone number ANTINUCLEAR ANTIBODIES Collected: 11/17/2017 Status: F Source: [place] 12:09 PM [facility] Order Comment: Order Date: 11/17/17 Order Info: 0270-1 - LATIA TYPE CODE TESTS RESULT OUT OF RANGE REFERENCE UNITS LAB L3100.5475 Negative Normal Negative LATIA-DIRECT Result Comment: [facility] [id number] [place] Nurse: Arjun Pisano PhD, Phone: [phone] Performed By: #### L101.9900, L100.0100, L503.0105, L506.1000, L500.4050, L501.9520, L505.7010 #### [facility] [address] [facility] [place], [address] #### L3100.5475 #### [facility] (refer to report for specific site) refer to report for address and phone number CRP Collected: 11/17/2017 Status: F Source: [place] 12:09 PM [facility] Order Comment: Order Date: 11/17/17 Order Info: [id number] - CMP Order Info: [id number] - TSH Order Info: 87143-9 - RA TYPE CODE TESTS RESULT OUT OF RANGE REFERENCE UNITS LAB L501.6710 0.0-3.0 mg/L High 5.87 C-REACTIVE PROT Result Comment: C-Reactive Protein (CRP) provides useful information for the diagnosis, therapy and monitoring of inflammatory processes and associated diseases. For the evaluation of Relative Risk for Cardiovascular Disease, a High Sensitivity CRP (HSCRP) should be ordered. Performed By: #### L501.6710 #### [facility] [place], [address] PROTHROMBIN TIME W/INR Collected: 11/11/2017 Status: F Source: [place] 1:12 PM [facility] TYPE CODE TESTS RESULT OUT OF RANGE REFERENCE UNITS LAB L300.4150 11.7-14.9 SECONDS High PROTIME 31.1 LAB L300.4200 Normal INR 3.0 Performed By: #### L300.3900 #### [facility] [address] [place], [address] DOWNTIME REPORT Observed: 10/30/2017 Status: F Source: [place] 12:02 PM [facility] Medical Records Department [address] [place] [address] Downtime Report MR#: [id number] Acct: [id number] Name: JOYCE SOLOMON Rep #: [id number] : 1935 82 From: Homar Tiwari PCP: Hussein Swenson MD Status: REG RCR This patient was seen during an EMR downtime October 13, 2017 - October 20, 2017. This patient may have a combination of paper and electronic documentation or all paper documentation. All documentation is viewable within the e-chart portion of [employer] for each patient visit. PROTHROMBIN TIME W/INR Collected: 10/20/2017 Status: F Source: [place] 1:19 PM [facility] TYPE CODE TESTS RESULT OUT OF RANGE REFERENCE UNITS LAB L300.4150 11.7-14.9 SECONDS High PROTIME 30.5 LAB L300.4200 Normal INR 2.9 Performed By: #### L300.3900 #### [facility] [address] [place], [address] PROTHROMBIN TIME W/INR Collected: 09/25/2017 Status: F Source: [place] 9:19 AM [facility] TYPE CODE TESTS RESULT OUT OF RANGE REFERENCE UNITS LAB L300.4150 11.7-14.9 SECONDS High PROTIME 26.6 LAB L300.4200 Normal INR 2.4 Performed By: #### L300.3900 #### [facility] [address] [place], [place], [address] CARDIOLOGY VISIT Observed: 09/18/2017 Status: F Source: [place] REPORT 1:04 PM [facility] [address] [place] [address] OFFICE VISIT Date of Service: 09/18/17 MR#: [id number] Acct: [id number] Name: JOYCE SOLOMON Rep #: [id number] : 1935 Provider: Evin Mora MD Age/Sex: 82/F Location: [facility] Status: Signed [facility] Chief Complaint: Follow-up visit. Details: JOYCE SOLOMON is a 82 F who presents to the office today for a follow-up visit. She is a lady with a history of hypertension paroxysmal atrial fibrillation and sleep apnea she returns for her routine follow-up visit she denies any chest pain or shortness of breath or paroxysmal nocturnal dyspnea pedal edema she does get some short of breath with exertion she has had no neck arm or jaw discomfort suggest angina. You remember her last echocardiogram had demonstrated preserved ejection fraction of 60% mild to moderate mitral regurgitation with normal pulmonary pressures. She did not have any ischemia noted on her stress test. She tells me that she is due to have a sleep profile testing done shortly. Her blood pressure is under good control her physical exam demonstrates clear lung aparicio regular rate and rhythm and no pedal edema. She also has some muscle aches which are not explained. Intake Vital Signs09/18/17 Height 5 ft 1 in 09/18/17 Weight: 173 lb 09/18/17 Body Mass Index (BMI) 32.6 09/18/17 Blood Pressure 126/60 09/18/17 Blood Pressure Location Lt brachial Intake Visit Reasons: 6 M FU (we r/s from 09-19) Color Stripper Required: No Accompanied by: None Is patient in pain?: No Allergies beet [Beet] Allergy (Verified 09/18/17 12:44) Hives levofloxacin [From Levaquin] Allergy (Verified 09/18/17 12:44) Unknown Penicillins Allergy (Verified 09/18/17 12:44) Unknown wheat Allergy (Verified 09/18/17 12:44) Hives gabapentin [From Neurontin] Adverse Reaction (Verified 09/18/17 12:44) Other meloxicam [From Mobic] Adverse Reaction (Verified 09/18/17 12:44) Other risedronate sodium [From Actonel] Adverse Reaction (Verified 09/18/17 12:44) Other CANTALOPE Allergy (Uncoded 05/18/17 13:52) Hives CONCENTRATES Allergy (Uncoded 05/18/17 13:52) Hives EGGPLANT Allergy (Uncoded 05/18/17 13:52) Hives MOLD Allergy (Uncoded 05/18/17 13:52) Unknown PROCESSED FOODS Allergy (Uncoded 05/18/17 13:52) Hives Medications Calcium Carb/Vitamin D [Caltrate-600 With Vit D Tab] 1 tab PO BID 02/26/13 [History Confirmed 09/18/17] Losartan Potassium [Cozaar] 100 mg PO DAILY 02/26/13 [History Confirmed 09/18/17] Aspirin E.C. [Ecotrin] 81 mg PO DAILY@0800 #60 tab 07/29/13 [Rx Confirmed 09/18/17] Cholecalciferol (Vitamin D3) [Vitamin D3] 1,000 unit PO DAILY 12/25/16 [History Confirmed 09/18/17] warfarin 1 mg tablet 6 mg PO SRIVASTAVA 04/16/17 [History Confirmed 09/18/17] Acetaminophen [Tylenol Extra Strength] 500 mg PO Q6H PRN 05/18/17 [History Confirmed 09/18/17] warfarin 4 mg tablet 4 mg PO QDAY #90 tab 06/11/17 [Rx Confirmed 09/18/17] atenolol 25 mg tablet See Label Instructions PO .COMPLEX tab 09/18/17 [History] Ejection fraction %: 60 to 64 (60% per echo 04/28/2017 at [facility] Medical History A-fib (Chronic) Arthritis (Chronic) Difficulty balancing (Chronic) Fatigue (Chronic) HTN (hypertension) (Chronic) Heart disease (Chronic) Limb weakness (Chronic) Migraines (Chronic) Pneumonia (Chronic) SOB (shortness of breath) (Chronic) Shoulder pain (Chronic) Thyroid disease (Chronic) Surgical History History of thyroid surgery (Chronic) History of tonsillectomy (Chronic) Hx of appendectomy (Chronic) Hx of bilateral cataract extraction (Chronic) Hx of cholecystectomy (Chronic) Family History Other Diabetes Heart disease Social History Smoking Status: Never smoker alcohol intake: never substance use type: does not use ROS Const Const: Positive for fatigue; negative for body ache, fever(s), chills, night sweats, daytime sleepiness, difficulty sleeping, weight gain, weight loss, increased appetite, poor appetite, anorexia, other, frequent falls, headache(s), weakness or excessive sweating Eyes Eyes: Negative for blind spots, loss of peripheral vision, transient loss of vision, change in vision, floaters, tunnel vision, other, blurry vision or double vision ENT ENT: Positive for balance problems and dry mouth; negative for hearing loss, tinnitus, Nosebleed/epistaxis, post nasal drip, bleeding gums, hoarseness, neck pain, other, tongue swelling, lip swelling, dizziness or headache(s) Cardio Chest Pain: No Palpitations: Yes Edema: Bilateral (lower extremities) Muscle aches with walking: None Resp Respiratory: Positive for SOB with activity; negative for SOB at rest, SOB orthopnea\SOB lying down, Cough, Coughing up blood/hemoptysis, chest congestion, pain on inspiration, snoring, stridor, wheezing, crackles, paroxysmal nocturnal dyspnea or other GI GI: Negative nausea, vomiting, heartburn, constipation, belching, bloating, cramping, vomiting blood/hematemesis, bright, red blood in stools, black,tarry stools, loose stools, Difficulty Swallowing or other : Positive for hematuria; negative for frequent nighttime urination/ nocturia, erectile dysfunction or abnormal vaginal bleeding Musc Musc: Positive for balance problems and muscle aches/ myalgia; negative for muscle weakness or joint pain Skin Skin: Negative redness, non-healing lesions, unusual bruising, skin ulcer, wounds, jaundice, other or rash Neuro Neuro: Negative for dizziness, lightheadedness, near syncope, syncope, orthostatic symptoms, frequent falls, headache(s), weakness, confusion, memory loss, restless legs, blurry vision, double vision, vertigo, seizures, lack of coordination or other Alphonse Hematologic/Lymphatic: Negative for easy bleeding, easy bruising, enlarged lymph nodes or other Endo Endo: Positive for fatigue; negative for cold intolerance, heat intolerance, excessive sweating, flushing, increased thirst/drinking, increased hunger, hair loss, hair growth or other Psych Psych: Negative for anxiety, depression, thoughts of harming anyone, thoughts of harming yourself, visual hallucinations, panic attacks or audible hallucinations Allergy Allergy/Immunology: Negative for throat swelling, Negative for tongue swelling, Negative for hives, Negative for rash, Negative for lip swelling Cardiology Exam Const Appearance: cooperative, healthy appearing, well developed, well groomed and no acute distress Nutritional Appearance: well nourished and average body habitus Orientation: alert, awake and oriented x3 Head Head: normal to inspection, normocephalic and atraumatic Ears: hearing grossly normal bilaterally and external ears normal Nose: external nose normal, nasal mucous membranes and turbinates normal, nares normal, septum normal, no nasal discharge Face and Sinus: face symmetric Mouth: oral mucosae normal, tongue normal, oropharynx normal and moist mucous membranes Teeth and gingiva: dentition normal Throat: posterior oropharynx normal, tonsils normal and uvula midline Eyes General: appearance normal, both eyes and all related structures Eyelids: eyelids normal Conjunctivae: conjunctivae normal Pupils: PERRL, normal by confrontation and accommodation normal EOM: EOM intact bilaterally Neck Neck: normal visual inspection, trachea midline and no JVD JVD: +5 Carotids: normal carotid upstroke and bounding pulses Chest Chest inspection: normal inspection of the chest, symmetric chest movement and normal respiratory effort Auscultation: Bilateral: Clear to Auscultation Cardio Palpation: normal PMI Rate: regular rate Rhythm: regular rhythm Heart sounds: S1 normal, S2 normal and normal, physiologic split S2; negative rub, gallop or murmur GI GI: normal to inspection, soft, no hepatosplenomegaly and bowel sounds present Neuro General: alert, awake, oriented x3, no focal sensory deficit, gait normal and moves all extremities Skin Skin: no rashes or lesions noted Extremities Pulses: Normal: Right Femoral Pulse, Left Femoral Pulse, Right Dorsalis Pedis Pulse, Left Dorsalis Pedis Pulse, Right Posterior Tibial Pulse, Left Posterior Tibial Pulse, Right Radial Pulse, Left Radial Pulse Lower Extremity Edema: None: Bilateral Musculoskel Musculoskeletal: No joint tenderness Psych Psychological: normal affect Assessment AND Plan 1. Benign essential HTN I10 Plan Her blood pressure appears to be very well controlled on the current medical therapy I would not recommend that we make any changes at this particular time. She did have a repeat echocardiogram in April 2016 and normal ejection fraction of 60% was noted. 2. New onset a-fib I48.91 Plan She does have a history of paroxysmal atrial fibrillation her ventricular response rate is well controlled when she has gone into it. At this time she appears to be in sinus rhythm and she will remain on her beta-sera. At this time I will not suggest that we make any changes Thank you for allowing me to participate in the care of your patient. Please don't hesitate to call if any issues arise Plan Detail Follow Up 6 Months (mmm) Coding Level of Care Code Off vis,est,level 3 Diagnoses Benign essential HTN I10 New onset a-fib I48.91 Coding Level of Care Code Off vis,est,level 3 Diagnoses Benign essential HTN I10 New onset a-fib I48.91 09/18/17 1304 <Electronically signed by Evin Mora MD> Date Evin Mora MD Cosigner Signature: Date (if applicable) CC: Hussein Swenson MD PROTHROMBIN TIME W/INR Collected: 08/20/2017 Status: F Source: [place] 11:37 AM [facility] Order Comment: Comments: Standing Order Comments: Standing Order TYPE CODE TESTS RESULT OUT OF RANGE REFERENCE UNITS LAB L300.4150 11.7-14.9 SECONDS High PROTIME 25.5 LAB L300.4200 Normal INR 2.3 Performed By: #### L300.3900 #### [facility] [address] [place], [address] FLUID/WASHING Observed: 08/18/2017 Status: F Source: [place] 9:45 AM [facility] Patient: JOYCE SOLOMON : 1935 (82/F) Acct Num: [id number] Phys: Nallely Wright NP Unit Num: [id number] Loc: [facility] Specimen: [id number] Received: 08/18/17 - 1600 Spec Type: Fluid TISSUES TISSUES: Urine COMMENT The specimen primarily contains squamous epithelial cells. Clinical correlation is suggested. CYTOLOGY GROSS Received is 15 ml of clear yellow labeled with the patient's name and and designated per the requisition as urine. Submitted for cytology preparation. / RY:cc 08/19/17 TC:5 CPT: 20805 CYTOLOGY STUDY Slides are reviewed. DIAGNOSIS CYTOLOGY Urine for cytology (cytospin): Negative for malignant cells. AM:perry 08/20/17 HEADER OPERATION: Not noted PRE-OP DIAGNOSIS: R31.1 TISSUE SUBMITTED: Urine for cytology Signed Manuelito Carnes 08/20/17 <signature on file> Performed By: #### PFLU #### [facility] [address] [place], [address] CYTOLOGY, BODY FLUID / Collected: 08/18/2017 Status: F Source: [place] 9:45 AM [facility] Order Comment: Specimen Source: URINE TYPE CODE TESTS RESULT OUT OF RANGE REFERENCE UNITS LAB L350.1000 SEE Normal PATHOLOGY CYTOLOGY,BF REPORT /CSF Result Comment: Specimen submitted to Anatomical Pathology Department for testing. Performed By: #### L350.1000 #### [facility] [address] [place], [address] PROTHROMBIN TIME W/INR Collected: 08/05/2017 Status: F Source: [place] 11:20 AM [facility] TYPE CODE TESTS RESULT OUT OF RANGE REFERENCE UNITS LAB L300.4150 11.7-14.9 SECONDS High PROTIME 24.3 LAB L300.4200 Normal INR 2.2 Performed By: #### L300.3900 #### [facility] [address] [place], [address] PROTHROMBIN TIME W/INR Collected: 07/22/2017 Status: F Source: [place] 11:29 AM [facility] TYPE CODE TESTS RESULT OUT OF RANGE REFERENCE UNITS LAB L300.4150 11.7-14.9 SECONDS High PROTIME 22.2 LAB L300.4200 Normal INR 1.9 Performed By: #### L300.3900 #### [facility] [address] [place], [address] OFFICE VISIT REPORT Observed: 07/18/2017 Status: F Source: [place] 5:00 PM [facility] [address] [place] [address] OFFICE VISIT Date of Service: 07/17/17 MR#: [id number] Acct: [id number] Patient: JOYCE SOLOMON Rep #: [id number] : 1935 Provider: Luca Deras RN Age/Sex: 82/F Location: [facility] Status: Signed Intake Intake Visit Reasons: EKG Allergies beet [Beet] Allergy (Verified 05/18/17 13:52) Hives levofloxacin [From Levaquin] Allergy (Verified 05/18/17 13:52) Unknown Penicillins Allergy (Verified 05/18/17 13:52) Unknown wheat Allergy (Verified 05/18/17 13:52) Hives gabapentin [From Neurontin] Adverse Reaction (Verified 05/18/17 13:52) Other meloxicam [From Mobic] Adverse Reaction (Verified 05/18/17 13:52) Other risedronate sodium [From Actonel] Adverse Reaction (Verified 05/18/17 13:52) Other CANTALOPE Allergy (Uncoded 05/18/17 13:52) Hives CONCENTRATES Allergy (Uncoded 05/18/17 13:52) Hives EGGPLANT Allergy (Uncoded 05/18/17 13:52) Hives MOLD Allergy (Uncoded 05/18/17 13:52) Unknown PROCESSED FOODS Allergy (Uncoded 05/18/17 13:52) Hives Medications Calcium Carb/Vitamin D [Caltrate-600 With Vit D Tab] 1 tab PO BID 02/26/13 [History Confirmed 05/18/17] Losartan Potassium [Cozaar] 100 mg PO DAILY 02/26/13 [History Confirmed 05/18/17] Aspirin E.C. [Ecotrin] 81 mg PO DAILY@0800 #60 tab 07/29/13 [Rx Confirmed 05/18/17] Cholecalciferol (Vitamin D3) [Vitamin D3] 1,000 unit PO DAILY 12/25/16 [History Confirmed 05/18/17] warfarin 1 mg tablet 6 mg PO SRIVASTAVA 04/16/17 [History Confirmed 06/23/17] Acetaminophen [Tylenol Extra Strength] 500 mg PO Q6H PRN 05/18/17 [History Confirmed 05/18/17] atenolol 25 mg tablet See Label Instructions PO BID #90 tab 05/28/17 [Rx] warfarin 4 mg tablet 4 mg PO QDAY #90 tab 06/11/17 [Rx Confirmed 06/23/17] Assessment AND Plan Orders Orders: Nursing Note Patient in for EKG after receiving call from Dr. Thomas due to during sleep study noted inverted T waves. EKG completed and reviewed by RM Martinez. EKG similar to previous EKG dated 12/26/16. No new orders. 07/18/17 1700 <Electronically signed by Yenny ABDALLA> Date Yenny ABDALLA Cosigner Signature: Date (if applicable) CC: Yenny Cha 12 LEAD EKG PERFORMED Observed: 07/17/2017 Status: F Source: [facility] BY [facility] 1:49 PM [facility] [address] [place] [address] 12 Lead EKG performed by [facility] 07/17/17 1348 MR#: [id number] Acct: [id number] Name: JOYCE SOLOMON Rep #: [id number] : 1935 82 From: Yenny ABDALLA Attending Dr: Luca Deras RN Status: DEP AMB Ordering Dr: Yenny Buckley Date: 07/17/17 Location: [facility] Sex: F C Admitted: BMS/12 Lead EKG performed by [facility] ECG Report Interpretation Sinus Rhythm WITHIN NORMAL LIMITSElectronically signed on 07/31/2017 at 13:47 by Evin Mora 07/31/17 1350 Date Yenny ABDALLA CC: Hussein Swenson MD Date Dictated: 07/17/171347 Date Transcribed: 07/17/171347 Culinary Director: LUECRO Signed PT D/C SUMMARY (1) Observed: 07/10/2017 Status: F Source: [place] 7:27 AM [facility] [address] [place] [address] Fax REHABILITATION SERVICES DISCHARGE SUMMARY MR#: [id number] Acct: [id number] Name: JOYCE SOLOMON Rep #: [id number] : 1935 82 From: Skinny Montelongo DPT Referring Dr.: Hussein Swenson MD Status: REG RCR Insurance: MEDICARE PART A B [place] HP - PT D/C Summary It has been my pleasure to treat JOYCE SOLOMON under orders from Hussein Swenson, for the diagnosis of R upper trapezius strain for a total of 10 visit(s). Discharge Date: 07/09/17 Please see the following information for a summary of their discharge status. - Subjective Subjective: Pt. reports today is a good day, I have my good days and bad ones. Pt. reports having slight TORO in the front of her head this date. Pt. reports being HEP compliant without adverse reaction. Pt. reports being 60% better overall. - Pain R cervical spine Pain Intensity (Out of 10): 1 R temporal region Pain Intensity (Out of 10): 0 TORO Pain Intensity (Out of 10): 1 - Overall Improvement % Improvement: 60 - Objective Objective/Function: Pt. tolerated all PT this date. Pt. has started to have minimal progress with PT. Pt. is back to reading without issues and is able to demonstrate proper body mechanics with several activities. Pt. continues to have incerased difficulty maintaining proper cervical spine positioning. Pt. is independent with her HEP as this current time and will be DC to HEP today. - Goals Goal 1:: Pt. to be I with HEP. (pt. is compliant with HEP) Goal Progress: Goal Met Goal 2:: Pt. to have increased ROM of cervical spine by 25% in all directions without increase in symptoms. (CERIVCAL ROM: flexion nil loss NE, ext min loss NE, SB min loss bilat NE, rotaton nil/min loss NE) Goal Progress: Goal Met Goal 3:: Pt. to have decreased pain of cervical spine and TORO at rest to 0-1/10 allowing to increased quality of life. (pt. reports having a 0-2/10 pain at front of head, has pain 2-3 times per week) Goal Progress: Goal Met Goal 4:: Pt. to sleep throughout the night with 0-1/10 pain. (pt. reports improved sleeping- overall decreased pain throughout the night.) Goal Progress: Goal Met Goal 5:: Pt. to demonstrate proper posture throughout therapy indicating increased postural awareness. (improved posture, but continues to have flexed lower cervical spine and extended upper cervical spine) Goal Progress: Progressing Goal 6:: Pt. to complete all ADLs, house work, driving and reading with 0-1/10 pain. (Pt. reports being able to complete most or her chores and house work without symtpoms). Goal Progress: Progressing - Plan Plan: Pt. to be DC to HEP today. - D/C Information Discharge Comments: Pt. made progress with manual stretching, body mechanics, US and trigger point release. Pt. has started to plataeu with exercises and PT. Pt. is independent with HEP and wished to continue on her own at this point in time. Pt. will be DC this date. If there are questions or concerns regarding this patient's physical therapy, please feel free to call me at [phone]. Thank you for the referral of this patient. Sincerely, Skinny Montelongo <Electronically signed by Skinny Montelongo DPT> 07/10/17 0727 CC: Hussein Swenson MD CLS Signed PROTHROMBIN TIME W/INR Collected: 07/08/2017 Status: F Source: [place] 10:54 AM [facility] TYPE CODE TESTS RESULT OUT OF RANGE REFERENCE UNITS LAB L300.4150 11.7-14.9 SECONDS High PROTIME 28.9 LAB L300.4200 Normal INR 2.9 Performed By: #### L300.3900 #### [facility] [address] [place], [place], [address] PROTHROMBIN TIME W/INR Collected: 07/01/2017 Status: F Source: [place] 10:54 AM [facility] Order Comment: Comments: Standing order: 06/30/2017 to Comments: Standing order: 06/30/2017 to TYPE CODE TESTS RESULT OUT OF RANGE REFERENCE UNITS LAB L300.4150 11.7-14.9 SECONDS High PROTIME 32.0 LAB L300.4200 Normal INR 3.3 Performed By: #### L300.3900 #### [facility] [address] [place], [address] RE-EVALUATION - PT (1) Observed: 06/27/2017 Status: F Source: [place] 7:17 AM [facility] [address] [place] [address] Fax REEVALUATION / MEDICARE RECERTIFICATION PHYSICAL THERAPY MR#: [id number] Acct: [id number] Name: JOYCE SOLOMON Rep #: [id number] : 1935 82 From: Skinny Montelongo DPT Referring Dr.: Hussein Swenson MD Status: REG RCR Insurance: MEDICARE PART A B [place]LE Swenson, It has been my pleasure to treat JOYCE SOLOMON over the last 8 visits for R upper trapezius strain. Please see the progress note below for an update on the physical therapy plan of care! Subjective: Pt. reports having a 2/10 TORO at front of head, no pulsating in temporal region this date. She reports being pain free for last two days, but TORO reoccured this AM. Pt. reports being HEP compliant with all exercises without adverse reaction. Pt. reports being 50% better overall. Objective/Function: Pt. is progressing with cervical ROM, but has no pain with ROM. Pt. is progressing with reduction in symptoms, but does have increased TORO at times. Overall reduction in symptoms and severity. Pt. reports wanting to continue to further reduce symptoms. Pt. has tightness in her suboccipitals, but is improving. She continues to require increased VCing to proper posture and to reduce stress applied to suboccipitals with all ADLs. Plan Plan: Pt. will continued to be seen x1 per week for 2-3 weeks to progress HEP and reduce symptoms. Goals Goal 1:: Pt. to be I with HEP. (pt. is compliant with HEP) Goal Time Frame: 4-6 Weeks Goal Progress: Goal Met Goal 2:: Pt. to have increased ROM of cervical spine by 25% in all directions without increase in symptoms. (CERIVCAL ROM: flexion nil loss NE, ext min loss NE, SB min loss bilat NE, rotaton nil/min loss NE) Goal Time Frame: 4-6 Weeks Goal Progress: Goal Met Goal 3:: Pt. to have decreased pain of cervical spine and TORO at rest to 0-1/10 allowing to increased quality of life. (pt. reports having a 2-3/10 pain at front of head, had 2 days without pain) Goal Time Frame: 4-6 Weeks Goal Progress: Progressing Goal 4:: Pt. to sleep throughout the night with 0-1/10 pain. (pt. reports improved sleeping- overall decreased pain throughout the night.) Goal Time Frame: 4-6 Weeks Goal Progress: Progressing Goal 5:: Pt. to demonstrate proper posture throughout therapy indicating increased postural awareness. Goal Time Frame: 4-6 Weeks Goal 6:: Pt. to complete all ADLs, house work, driving and reading with 0-1/10 pain. (Pt. reports being able to complete most or her chores and house work without symtpoms). Goal Progress: Progressing Anticipated Interventions Patient/Client Instruction: Educate patient on: Condition, Plan of Care, Risk Factors, Benefits of Fitness Program For the Purpose of:: To improve health and function, To foster healthy habits, To improve decision making, To facilitate caregiver knowledge, To improve self management, To prevent re-injury, To improve ability to perform tasks related to life management, To improve tolerance to ADL's Therapeutic Exercise to Include: Strength training, Power training, Body mechanics, Postural training, Flexibilty training, Passive ROM, Active ROM, Deon Exercises, Scapular Strength/Stabilization For the Purpose of:: To decrease pain, To increase ROM, To improve nutrient delivery to tissue, To increase oxygenation perfusion, To improve muscle performance and motor function, To increase tolerance to activity/condition/position, To improve performance and independence with ADL's, To decrease soft tissue restriction, To increase flexibility/ROM Manual Therapy Techniques to Include: Trigger point massage, Mobilization, Passive ROM, Functional dry needling, Soft tissue mobilization For the Purpose of:: To decrease pain, To decrease swelling/inflammation, To increase ROM, To improve nutrient delivery to tissue, To increase oxygenation perfusion, To improve muscle performance and motor function Ultrasound (thermal/non thermal): Yes For the Purpose of:: To decrease pain, To increase ROM Please do not hesitate to contact me at [phone] by phone or if you have questions or concerns regarding this new plan of care! Sincerely, Skinny Montelongo <Electronically signed by Skinny Montelongo DPT> 06/27/17 0717 CC: Hussein Swenson MD CLS Signed For Medicare only, by signing this I certify the plan of care. Physicians Signature Date PROTHROMBIN TIME W/INR Collected: 06/23/2017 Status: F Source: [place] 11:14 AM [facility] TYPE CODE TESTS RESULT OUT OF RANGE REFERENCE UNITS LAB L300.4150 11.7-14.9 SECONDS High PROTIME 20.3 LAB L300.4200 Normal INR 1.8 Performed By: #### L300.3900 #### [facility] [address] [place], [place], [address] PROTHROMBIN TIME W/INR Collected: 06/16/2017 Status: F Source: [place] 10:10 AM [facility] TYPE CODE TESTS RESULT OUT OF RANGE REFERENCE UNITS LAB L300.4150 11.7-14.9 SECONDS High PROTIME 20.6 LAB L300.4200 Normal INR 1.9 Performed By: #### L300.3900 #### [facility] [address] [place], [address] PROTHROMBIN TIME W/INR Collected: 06/11/2017 Status: F Source: [place] 11:24 AM [facility] Order Comment: CRITICAL VALUE VERIFIED. CALLED TO [facility] 06/11/17 Flavio Duron. RESULTS READ BACK BY [facility] . TYPE CODE TESTS RESULT OUT OF REFERENCE UNITS RANGE LAB L300.4150 11.7-14.9 SECONDS High PROTIME 36.8 LAB L300.4200 High alert INR 3.9 Performed By: #### L300.3900 #### [facility] [place], [address] ALLERGIES ALLERGIES DATE TYPE / CODE NAME / CODE REACTION SEVERITY SOURCE Drug Penicillins/F0010 Unknown Unknown [place] 8 Allergy/101546942( 25278(RXNORM) [facility] SNOMED CT) Hospital Repository Drug oxycodone/X373835 Nausea Unknown [place] 8 Allergy/823912108( 558(RXNORM) [facility] SNOMED CT) Hospital Repository Drug gabapentin/Y23748 Other Unknown [place] 8 Allergy/553366470( 4415(RXNORM) [facility] SNOMED CT) Hospital Repository Drug meloxicam/L783895 Other Unknown [place] 8 Allergy/120608027( 272(RXNORM) [facility] SNOMED CT) Hospital Repository Drug levofloxacin/F006 Unknown Unknown [place] 8 Allergy/649708159( 543884(RXNORM) [facility] SNOMED CT) Hospital Repository Drug risedronate Other Unknown [place] 8 Allergy/730415989( sodium/C095732403 [facility]) (RXNORM) Hospital Repository Drug beet/V242147630(R Hives Unknown [place] 8 Allergy/496001216( XNORM) [facility] SNOMED CT) Hospital Repository Drug wheat/P447021030( Hives Unknown [place] 8 Allergy/555224696( RXNORM) [facility] SNOMED CT) Hospital Repository Miscellaneous CANTALOPE Hives Unknown [place] 8 Allergy/828015879( [facility] SNOMED CT) Hospital Repository Miscellaneous CONCENTRATES Hives Unknown [place] 8 Allergy/762885358( [facility] SNOMED CT) Hospital Repository Miscellaneous EGGPLANT Hives Unknown [place] 8 Allergy/054716668( [facility] SNOMED CT) Hospital Repository Miscellaneous MOLD Unknown Unknown [place] 8 Allergy/312416542( [facility] SNOMED CT) Hospital Repository Miscellaneous PROCESSED FOODS Hives Unknown [place] 8 Allergy/465068396( [facility] SNOMED CT) Hospital Repository ENCOUNTERS ENCOUNTERS ADMIT/DISCHARGE ACCOUNT ADMITTING ENCOUNTER LOCATION SOURCE NUMBER CLASS 04/28/2018 [id number] Ambulatory [place] 4 [facility] ing:OPBD Repository 04/06/2018 [id number] Ambulatory [place] 9 [facility] ing:[facility] Repository C 04/01/2018/ [id number] Ambulatory BMSBuilding:B [place] 8 4 [facility] Repository 03/30/2018 [id number] Ambulatory [place] 4 [facility] ing:OLS[facility] Repository C 03/19/2018/ [id number] [place], Allison Inpatient [place] 8 5 Encounter [facility] ing:QS1Cxnd: Repository BO113Ynd: 1 03/19/2018 [id number] White, Ambulatory BMSBuilding:B [place] 3 MS.Counts include 234 beds at the [facility] Repository 03/19/2018 [id number] White, Ambulatory BMSBuilding:B [place] 8 MS.Counts include 234 beds at the [facility] Repository 03/19/2018 [id number] White, Ambulatory BMSBuilding:B [place] 1 MS.Counts include 234 beds at the [facility] Repository 03/19/2018 [id number] Ambulatory BMSBuilding:W [place] 4 [facility] Repository 03/18/2018 [id number] White, Ambulatory BMSBuilding:B [place] 1 MS.Counts include 234 beds at the [facility] Repository 03/18/2018 [id number] White, Ambulatory BMSBuilding:B [place] 3 MS.Counts include 234 beds at the [facility] Repository 03/12/2018 [id number] Ambulatory [place] 8 [facility] ing:MTLAB Repository 03/11/2018 [id number] Ambulatory [place]ery 2 [facility] ing:MTLAB Repository 02/25/2018/ [id number] Ambulatory [place] 8 4 [facility] ing[facility]MTLAB Repository 02/16/2018 [id number] Ambulatory [place]ery 2 [facility] ing:LABSPEC Repository 02/11/2018 [id number] Ambulatory [place] 9 [facility] ing:MTRAD Repository 02/04/2018/ [id number] Ambulatory [place] 8 5 [facility] ing:MTLAB Repository 01/20/2018 [id number] Ambulatory [place] 9 [facility] ing:MTLAB Repository 01/16/2018 [id number] Ambulatory [place] 3 [facility] ing:OPBI Repository 12/24/2017/ [id number] [place] 8 3 [facility] ing:MTLAB Repository 12/19/2017 [id number] [place] 4 [facility] ing:[facility] Repository 12/09/2017/ [id number] Ambulatory [place] 8 0 [facility] ing:MTLAB Repository 11/17/2017 [id number] Ambulatory [place] 9 [facility] ing:MFPLAB Repository 10/20/2017/ [id number] Ambulatory [place] 8 2 [facility] ing:MTLAB Repository 09/25/2017/ [id number] Ambulatory [place] 8 8 [facility] ing:MTLAB Repository 09/18/2017/ [id number] Ambulatory BMSBuilding:B [place] 8 6 [facility] Repository 09/01/2017 [id number] Ambulatory BMSBuilding:B [place] 7 [facility] Repository 08/20/2017/ [id number] Ambulatory [place] 8 3 [facility] ing:MTLAB Repository 08/18/2017 [id number] Ambulatory [place] 5 [facility] ing:LABSPEC Repository 08/05/2017/ [id number] Ambulatory [place] 8 6 [facility] ing:MTLAB Repository 07/17/2017/ [id number] Ambulatory BMSBuilding:B [place] 8 4 [facility] Repository 07/09/2017/ [id number] Ambulatory [place] 8 3 [facility] ing:PT Repository 07/08/2017/ [id number] Ambulatory [place] 8 2 [facility] ing:MTLAB Repository 06/17/2017 [id number] Ambulatory [place] 6 [facility] ing:LAB Repository 06/11/2017/ [id number] Ambulatory [place] 8 3 [facility] ing:MTLAB Repository PAYERS PAYERS ENCOUNTER GUARANTOR PAYER SUBSCRIBER SOURCE 04/28/2018 FELIZ Primary FELIZ [place] [id number] Insurance:MEDICARE SMITHDOB: Community BAYBERRY PART A [id number] [place] [facility]ository [address]Mzr: 330 [id number] () Date:2018-03-10 04/28/2018 Secondary FELIZ [place] Insurance:ANTHEMPolic SMITHDOB: Community y Number: [id number] [facility] [id number] Repository Date:2227-45-80[address], [place] [address]ZG: 04/28/2018 Tertiary NOT GIVENUNK [place] Insurance:SELF PAY [facility] Number: Effective Repository Date:2018-03-10 04/06/2018 FELIZ Primary NOT GIVENUNK [place] [id number] Insurance:SELF PAY [facility] [place] Number: Effective Repository [phone]: (330) Date:2018-04-06 () 04/01/2018 FELIZ Primary JOYCE DYER [place] [id number] Insurance:MEDICARE SMITHDOB: [facility] BAYBERRY PART A [facility] [id number] Number: Repository 127[address]Hbz: 330 [id number] 21 (HP) Date:2018-03-24 04/01/2018 Secondary FELIZ [place] Insurance:ANTHEMPolic SMITHDOB: Community y Number: [id number] Hospital [id number] Repository Date:1769-84-49WH [address], [place] [address]KF: 04/01/2018 Tertiary NOT GIVENUNK [place] Insurance:SELF PAY [facility] Number: Effective Repository Date:2018-03-31 03/30/2018 FELIZ Primary NOT GIVENUNK [place] [id number] Insurance:SELF PAY [facility] Number: Effective Repository [phone]: (330) Date:2018-03-30 [phone] (HP) 03/19/2018 FELIZ Primary FELIZ [place] [id number] Insurance:MEDICARE SMITHDOB: Community BAYBERRY PART A olicy [id number] [place] Number[facility] Repository [address]Dym: 330 [id number] 21 (HP) Date:2018-03-18 03/19/2018 Secondary FELIZ [place] Insurance:ANTHEMPolic SMITHDOB: Community y Number: [id number] Hospital [id number] Repository Date:5017-22-53ZP [address] [place] [address]MV: 03/19/2018 Tertiary NOT GIVENUNK [place] Insurance:SELF PAY [facility] Number: Effective Repository Date:2018-03-18 03/19/2018 FELIZ Primary FELIZ [place] [id number] Insurance:MEDICARE SMITHDOB: Community BAYBERRY PART A olicy [id number] [place] Number: Repository [address]Edp: 330 [id number] () Date:2018-03-18 03/19/2018 Secondary FELIZ [place] Insurance:ANTHEMPolic SMITHDOB: Community y Number: [id number] [facility] [id number] Repository Date:4994-39-77IP [address]XYWFLXQ, [place] [address]MK: 03/19/2018 Tertiary NOT GIVENUNK [place] Insurance:SELF PAY [facility] Number: Effective Repository Date:2018-03-19 03/19/2018 FELIZ Primary FELIZ [place] [id number] Insurance:MEDICARE SMITHDOB: Community BAYBERRY PART A [facility] [id number] [place] Number: Repository [address]Fod: 330 [id number] [phone] () Date:2018-03-18 03/19/2018 Secondary JOYCE DYER [place] Insurance:ANTHEMPolic SMITHDOB: Community y Number: [id number] Hospital [id number] Repository Date:5339-02-62ZK [address]VEPMCFZ, [place] [address]KG: 03/19/2018 Tertiary NOT GIVENUNK [place] Insurance:SELF PAY [facility] Number: Effective Repository Date:2018-03-19 03/19/2018 FELIZ Primary JOYCE DYER [place] [id number] Insurance:MEDICARE SMITHDOB: Community BAYBERRY PART A [facility] [id number] [facility] [place] Number: Repository [address]Laa: 330 [id number] [phone] (HP) Date:2018-03-18 03/19/2018 Secondary JOYCE DYER [place] Insurance:ANTHEMPolic SMITHDOB: Community y Number: [id number] Hospital [id number] Repository Date:6907-12-80MC [address]WW[place]V, [place] [address]ZG: 03/19/2018 Tertiary NOT GIVENUNK [place] Insurance:SELF PAY [facility] Number: Effective Repository Date:2018-03-19 03/19/2018 FELIZ Primary JOYCE DYER [place] [id number] Insurance:MEDICARE SMITHDOB: Community BAYBERRY PART A [facility] [id number] [facility] [place] Number: Repository [address]Fhw: 330 [id number] [phone] () Date:2018-03-18 03/19/2018 Secondary FELIZ [place] Insurance:ANTHEMPolic SMITHDOB: Community y Number: [id number] Hospital [id number] Repository Date:0400-30-42WL [address], [place] [address]HZ: 03/19/2018 Tertiary NOT GIVENUNK [place] Insurance:SELF PAY [facility] Number: Effective Repository Date:2018-03-19 03/18/2018 FELIZ Primary JOYCE DYER [place] [id number] Insurance:MEDICARE SMITHDOB: Community BAYBERRY PART A olic [id number] [facility] [place] Number: Repository [address]Pkd: 330 [id number] [phone] (HP) Date:2018-03-18 03/18/2018 Secondary FELIZ [place] Insurance:ANTHEMPolic SMITHDOB: Community y Number: [id number] Hospital [id number] Repository Date:8101-60-45HP [address]TVNRTKV [place] [address]MA: 03/18/2018 Tertiary NOT GIVENUNK [place] Insurance:SELF PAY [facility] Number: Effective Repository Date:2018-03-18 03/18/2018 FELIZ Primary JOYCE DYER [place] [id number] Insurance:MEDICARE SMITHDOB: Community BAYBERRY PART A [facility] [id number] [facility] [place] Number: Repository [address]Mnz: 330 [id number] [phone] () Date:2018-03-18 03/18/2018 Secondary JOYCE DYER [place] Insurance:ANTHEMPolic SMITHDOB: Community y Number: [id number] Hospital [id number] Repository Date:5194-07-02AW [address]TUXLJPI [place] [address]ZZ: 03/18/2018 Tertiary NOT GIVENUNK [place] Insurance:SELF PAY [facility] Number: Effective Repository Date:2018-03-18 03/12/2018 FELIZ Primary JOYCE DYER [place] [id number] Insurance:MEDICARE SMITHDOB: Community BAYBERRY PART A [facility] [id number] [facility] [place] Number: Repository [address]Ncj: 330 [id number] [phone] (HP) Date:2018-01-14 03/12/2018 Secondary FELIZ [place] Insurance:ANTHEMPolic SMITHDOB: Community y Number: [id number] Defiance Indian [id number] Repository Date:7284-89-96QX [address] [place] [address]VN: 03/12/2018 Tertiary NOT GIVENUNK [place] Insurance:SELF PAY [facility] Effective Repository Date:2018-03-12 03/11/2018 FELIZ Primary JOYCE DYER [place] [id number] Insurance:MEDICARE SMITHDOB: Community BAYBERRY PART A olic [id number] [facility] [place] Number: Repository [address]Cvb: 330 [id number] [phone] () Date:2018-03-11 03/11/2018 Secondary JOYCE DYER [place] Insurance:ANTHEMPolic SMITHDOB: Community y Number: [id number] Hospital [id number] Repository Date:4169-47-76RO [address] [place] [address]CY: 03/11/2018 Tertiary NOT GIVENUNK [place] Insurance:SELF PAY [facility] Number: Effective Repository Date:2018-03-11 02/25/2018 FELIZ Primary JOYCE DYER [place] [id number] Insurance:MEDICARE SMITHDOB: Community BAYBERRY PART A olic [id number] [facility] [place] Number: Repository [address]Kzi: 330 [id number] [phone] () Date:2018-01-14 02/25/2018 Secondary JOYCE DYER [place] Insurance:ANTHEMPolic SMITHDOB: Community y Number: [id number] Defiance Indian [id number] Repository Date:1309-27-71UV [address] [place] [address]QY: 02/25/2018 Tertiary NOT GIVENUNK [place] Insurance:SELF PAY [facility] Number: Effective Repository Date:2018-02-10 02/16/2018 FELIZ Primary JOYCE DYER [place] [id number] Insurance:MEDICARE SMITHDOB: Community BAYBERRY PART A [facility] [id number] Hospital [place] Number: Repository [address]Hlf: 330 [id number] [phone] () Date:2018-02-16 02/16/2018 Secondary FELIZ [place] Insurance:ANTHEMPolic SMITHDOB: Community y Number: [id number] Hospital [id number] Repository Date:7387-63-60LK [address]SOGCJWY, [place] [address]GU: 02/16/2018 Tertiary NOT GIVENUNK [place] Insurance:SELF PAY [facility] Number: Effective Repository Date:2018-02-16 02/11/2018 FELIZ Primary JOYCE DYER [place] [id number] Insurance:MEDICARE SMITHDOB: Community BAYBERRY PART A [facility] [id number] [facility] [place] Number: Repository [address]Wwb: 330 [id number] [phone] () Date:2018-02-11 02/11/2018 Secondary FELIZ [place] Insurance:ANTHEMPolic SMITHDOB: Community y Number: [id number] Hospital [id number] Repository Date:8299-00-81WW [address]LCBNHKF, [place] [address]CL: 02/11/2018 Tertiary NOT GIVENUNK [place] Insurance:SELF PAY [facility] Number: Effective Repository Date:2018-02-11 02/04/2018 FELIZ Primary JOYCE DYER [place] [id number] Insurance:MEDICARE SMITHDOB: Community BAYBERRY PART A [facility] [id number] [facility] [place] Number: Repository [address]Nnf: 330 [id number] [phone] () Date:2018-01-14 02/04/2018 Secondary FELIZ [place] Insurance:ANTHEMPolic SMITHDOB: Community y Number: [id number] Hospital [id number] Repository Date:5534-28-64MB [address]VKNREBY, [place] [address]BH: 02/04/2018 Tertiary NOT GIVENUNK [place] Insurance:SELF PAY [facility] Number: Effective Repository Date:2018-01-14 01/20/2018 FELIZ Primary JOYCE DYER [place] [id number] Insurance:MEDICARE SMITHDOB: Community BAYBERRY PART A o[place] [id number] [facility] [place] Number: Repository [address]Rhx: 330 [id number] [phone] (HP) Date:2017-06-12 01/20/2018 Secondary FELIZ [place] Insurance:ANTHEMPolic SMITHDOB: Community y Number: [id number] Hospital [id number] Repository Date:4935-16-64HB [address]BLNCKVK, [place] [address]TF: 01/20/2018 Tertiary NOT GIVENUNK [place] Insurance:SELF PAY [facility] Number: Effective Repository Date:2018-01-14 01/16/2018 FELIZ Primary JOYCE DYER [place] [id number] Insurance:MEDICARE SMITHDOB: Community BAYBERRY PART A [facility] [id number] Valley [facility] Number: Repository [address]Dly: 330 [id number] [phone] () Date:2017-12-26 01/16/2018 Secondary FELIZ [place] Insurance:ANTHEMPolic SMITHDOB: Community y Number: [id number] Hospital [id number] Repository Date:9348-43-11QD [address]SQQORYP, [place] [address]YC: 01/16/2018 Tertiary NOT GIVENUNK [place] Insurance:SELF PAY [facility] Number: Effective Repository Date:2017-12-26 12/24/2017 FELIZ Primary JOYCE DYER [place] [id number] Insurance:MEDICARE SMITHDOB: Community BAYBERRY PART A [facility] [id number] [place] Number: Repository [address]Yfl: 330 [id number] [phone] (HP) Date:2017-06-12 12/24/2017 Secondary FELIZ [place] Insurance:ANTHEMPolic SMITHDOB: Community y Number: [id number] Hospital [id number] Repository Date:1159-52-44XA [address]UUYOVQT, [place] [address]TW: 12/24/2017 Tertiary NOT GIVENUNK [place] Insurance:SELF PAY [facility] Number: Effective Repository Date:2017-12-12 12/19/2017 FELIZ Primary JOYCE DYER [place] [id number] Insurance:MEDICARE SMITHDOB: Community BAYBERRY PART A [id number] Repository [address]Rzj: 330 [id number] [phone] () Date:2017-12-09 12/19/2017 Secondary JOYCE DYER [place] Insurance:ANTHEMPolic SMITHDOB: Community y Number: [id number] Hospital [id number] Repository Date:5094-75-56MW [address]HTDIFKZ, [place] [address]WX: 12/19/2017 Tertiary NOT GIVENUNK [place] Insurance:SELF PAY [facility] Number: Effective Repository Date:2017-12-09 12/09/2017 FELIZ Primary JOYCE DYER [place] [id number] Insurance:MEDICARE SMITHDOB: Community BAYBERRY PART A [place]lic [id number] Number: [id number] Repository [address]Qnb: 330 [id number] [phone] () Date:2017-06-12 12/09/2017 Secondary JOYCE DYER [place] Insurance:ANTHEMPolic SMITHDOB: Community y Number: [id number] Defiance Indian [id number] Repository Date:5860-63-39LE [address]GFLMWEP, [place] [address]NI: 12/09/2017 Tertiary NOT GIVENUNK [place] Insurance:SELF PAY [facility] Number: Effective Repository Date:2017-11-07 11/17/2017 FELIZ Primary JOYCE DYER [place] [id number] Insurance:MEDICARE SMITHDOB: Community BAYBERRY PART A [facility] [id number] General Hospital [place] Number: Repository [address]Bqo: 330 [id number] [phone] () Date:2017-11-17 11/17/2017 Secondary JOYCE DYER [place] Insurance:ANTHEMPolic SMITHDOB: Community y Number: [id number] Hospital [id number] Repository Date:3720-45-75ND [address] [address]MO: 11/17/2017 Tertiary NOT GIVENUNK [place] Insurance:SELF PAY [facility] Number: Effective Repository Date:2017-11-17 10/20/2017 FELIZ Primary JOYCE DYER [place] [id number] Insurance:MEDICARE SMITHDOB: Community BAYBERRY PART A [facility] [id number] [place] Number[facility] Repository [address]Ezi: 330 [id number] () Date:2017-06-12 10/20/2017 Secondary FELIZ [place] Insurance:ANTHEMPolic SMITHDOB: Community y Number: [id number] Hospital [id number] Repository Date:1339-72-48BR [address]HZLSIKJ, [place] [address]WM: 10/20/2017 Tertiary NOT GIVENUNK [place] Insurance:SELF PAY [facility] Number: Effective Repository Date:2017-10-10 09/25/2017 FELIZ Primary JOYCE DYER [place] [id number] Insurance:MEDICARE SMITHDOB: Community BAYBERRY PART A [facility] [id number] General Hospital [place] Number: Repository [address]Rnp: 330 [id number] [phone] () Date:2017-06-12 09/25/2017 Secondary JOYCE DYER [place] Insurance:ANTHEMPolic SMITHDOB: Community y Number: [id number] Hospital [id number] Repository Date:1598-49-93[address]ZHNQNFG, [place] [address]GQ: 09/25/2017 Tertiary NOT GIVENUNK [place] Insurance:SELF PAY [facility] Number: Effective Repository Date:2017-09-09 09/18/2017 FELIZ Primary JOYCE DYER [place] [id number] Insurance:MEDICARE SMITHDOB: Community BAYBERRY PART A olic [id number] [place] Number: Repository [address]Vsb: (016) [id number] [phone] (HP) Date:2017-04-21 09/18/2017 Secondary JOYCE DYER [place] Insurance:ANTHEMPolic SMITHDOB: Community y Number: [id number] Hospital [id number] Repository Date:7173-76-51UN [address] [place] [address]DO: 09/18/2017 Tertiary NOT GIVENUNK [place] Insurance:SELF PAY [facility] Number: Effective Repository Date:2017-09-16 09/01/2017 FELIZ Primary JOYCE DYER [place] [id number] Insurance:MEDICARE SMITHDOB: Community BAYBERRY PART A [facility] [id number] [facility] Number: Repository [address]Qou: (227) [id number] [phone] (HP) Date:2017-09-01 09/01/2017 Secondary JOYCE DYER [place] Insurance:ANTHEMPolic SMITHDOB: Community y Number: [id number] Hospital [id number] Repository Date:5304-62-30GV [address] [place] [address]RE: 09/01/2017 Tertiary NOT GIVENUNK [place] Insurance:SELF PAY [facility] Number: Effective Repository Date:2017-09-01 08/20/2017 FELIZ Primary FELIZ [place] [id number] Insurance:MEDICARE SMITHDOB: Community BAYBERRY PART A [facility] [id number] Valley [facility] Number: Repository [address]Nwi: (227) [id number] [phone] (HP) Date:2017-06-12 08/20/2017 Secondary FELIZ [place] Insurance:ANTHEMPolic SMITHDOB: Community y Number: [id number] Hospital [id number] Repository Date:4094-87-32JX [address]JUCOTKN, [place] [address]EZ: 08/20/2017 Tertiary NOT GIVENUNK [place] Insurance:SELF PAY [facility] Number: Effective Repository Date:2017-08-11 08/18/2017 FELIZ Primary JOYCE DYER [place] [id number] Insurance:MEDICARE SMITHDOB: Community BAYBERRY PART A [facility] [id number] [facility] [place] Number: Repository [address]Iut: (291) [id number] [phone] () Date:2017-08-18 08/18/2017 Secondary JOYCE DYER [place] Insurance:ANTHEMPolic SMITHDOB: Community y Number: [id number] [id number] Repository Date:9159-68-17[address], [place] [address]GT: 08/18/2017 Tertiary NOT GIVENUNK [place] Insurance:SELF PAY [facility] Number: Effective Repository Date:2017-08-18 08/05/2017 FELIZ Primary JOYCE DYER [place] [id number] Insurance:MEDICARE SMITHDOB: Community BAYBERRY PART A [id number] [place] Number: Repository [id number]: [phone] [id number] [phone] () Date:2017-06-12 08/05/2017 Secondary JOYCE DYER [place] Insurance:ANTHEMPolic SMITHDOB: Community y Number: [id number] [id number] Repository Date:7831-63-88[address], [place] [address]XN: 08/05/2017 Tertiary NOT GIVENUNK [place] Insurance:SELF PAY [facility] Number: Effective Repository Date:2017-07-10 07/17/2017 FELIZ Primary JOYCE DYER [place] [id number] Insurance:MEDICARE SMITHDOB: Community BAYBERRY PART A [id number] [place] [facility] [id number]: 330 [id number] [phone] (HP) Date:2017-07-17 07/17/2017 Secondary JOYCE DYER [place] Insurance:ANTHEMPolic SMITHDOB: Community y Number: [id number] [id number] Repository Date:7636-51-75[address], [place] [address]JI: 07/17/2017 Tertiary NOT GIVENUNK [place] Insurance:SELF PAY [facility] Number: Effective Repository Date:2017-07-17 07/09/2017 JOYCE DYER Primary JOYCE DYER [place] [id number] Insurance:MEDICARE SMITHDOB: Community BAYBERRY PART A [place] [id number] [place] Number: Repository [id number]: 330 [id number] [phone] () Date:2001-03-12 07/09/2017 Secondary JOYCE DYER [place] Insurance:ANTHEMPolic SMITHDOB: Community y Number: [id number] [facility] [id number] Repository Date:6023-04-72[address], [place] [address]VD: 07/09/2017 Tertiary NOT GIVENUNK [place] Insurance:SELF PAY [facility] Number: Effective Repository Date:2017-05-21 07/08/2017 JOYCE DYER Primary JOYCE DYER [place] [id number] Insurance:MEDICARE SMITHDOB: Community BAYBERRY PART A [id number] [place] Number[place] Repository [address]Qzr: 330 [id number] [phone] () Date:2017-06-12 07/08/2017 Secondary JOYCE DYER [place] Insurance:ANTHEMPolic SMITHDOB: Community y Number: [id number] [id number] Repository Date:7460-11-21[address], [place] [address]NJ: 07/08/2017 Tertiary NOT GIVENUNK [place] Insurance:SELF PAY [facility] Number: Effective Repository Date:2017-06-12 06/17/2017 JOYCE DYER Primary JOYCE DYER [place] [id number] Insurance:MEDICARE SMITHDOB: Community BAYBERRY PART A [facility] [id number] Repository [id number]: [phone] [id number] [phone] (HP) Date:2017-06-17 06/17/2017 Secondary FELIZ [place] Insurance:ANTHEMPolic SMITHDOB: Community y Number: [id number] [id number] Repository Date:6026-13-17[id number] [place] [address]AU: 06/17/2017 Tertiary NOT GIVENUNK [place] Insurance:SELF PAY [facility] Number: Effective Repository Date:2017-06-17 06/11/2017 JOYCE DYER Primary JOYCE DYER [place] [id number] Insurance:MEDICARE SMITHDOB: Community BAYBERRY PART A [facility] [id number] [id number]: 330 [id number] [phone] (HP) Date:2017-06-11 06/11/2017 Secondary JOYCE DYER [place] Insurance:ANTHEMPolic SMITHDOB: Community y Number: [id number] Hospital [id number] Repository Date:2078-51-59[address]EHJ[place], [place] [address]SD: 06/11/2017 Tertiary NOT GIVENUNK [place] Insurance:SELF PAY [facility] Number: Effective Repository Date:2017-06-11
== END ==
PROVIDERS: Family Provider Family Medicine; PCP Family Medicine; Visit Provider Family Medicine
DX: M81.0 Age-related osteoporosis without current pathological fracture (principal)
CPT/HCPCS: 77080

== ENCOUNTER → 2018-07-06 17:31 | Outpatient (CLI) | payer MEDICARE, BC, SELFPAY ==
[2018-04-01 10:35] VITALS: BMI 32.5
--- NOTE | 2018-07-06 17:36 | RAD_ITS ---
STUDY: X-RAY CHEST REASON FOR EXAM: Female, 83 years old. Pneumonia TECHNIQUE: PA and lateral COMPARISON: December 25, 2016 FINDINGS: Lungs are expanded. There is a calcified granuloma at the RIGHT lung base. There are NO acute infiltrates. There is no demonstrated pleural abnormality. Normal size heart. Normal mediastinum and lisa. Normal visualized pulmonary arteries. Normal visualized aortic arch and descending thoracic aorta. Normal visualized thoracic spine. There are healing fractures of LEFT ribs numbers 5, 6, 7, 8 and 9. There is no demonstrated abnormality of the visualized soft tissue structures of the upper abdomen. RAD/Chest PA and Lateral IMPRESSION: There are NO active infiltrates. There are healing LEFT rib fractures. Electronically Signed: Remy Alberto MD at 5:21 EST , Service support ,
== END ==
PROVIDERS: Family Provider Family Medicine; PCP Family Medicine; Referring Provider Family Medicine; Visit Provider Family Medicine
DX: J18.9 Pneumonia, unspecified organism (principal)
CPT/HCPCS: 71046

== ENCOUNTER → 2018-11-18 | Outpatient (CLI) | payer MEDICARE, BC, SELFPAY ==
[2018-07-21 10:55] VITALS: BMI 33.0
--- NOTE | 2018-11-18 14:43 | RAD_ITS ---
HISTORY: knee pain ADDITIONAL HISTORY: None provided. COMPARISON: 10/10/2016 TECHNIQUE: Right knee 4 views Number of images including paperwork: 4 FINDINGS: BONES: No acute fracture. Mineralization appears decreased. JOINTS: No subluxation. Mild to moderate tricompartmental degenerative changes. SOFT TISSUES: No distinct foreign body. RAD/Knee 4 or More Views IMPRESSION: Degenerative changes without acute osseous abnormality. at 0008 Reported and signed by: Michelle Tarango MD Electronically Signed: Michelle Tarango MD at 0:08 EDT Tel , Service support ,
== END | disposition home or self-care (01) ==
LOC: MTRAD 14:41
PROVIDERS: Family Provider Family Medicine; PCP Family Medicine; Referring Provider Family Medicine; Visit Provider Family Medicine
DX: M25.561 Pain in right knee (principal)
CPT/HCPCS: 73564

== ENCOUNTER → 2019-01-06 | Outpatient (CLI) | payer MEDICARE, BC, SELFPAY ==
[2018-07-21 10:55] VITALS: BMI 33.0
[2019-01-06 17:52] LABS: Vitamin D,25 Hydroxy 51.1 ng/mL (29.95-100.01)
[2019-01-06 18:04] LABS: AST(SGOT) 20 U/L (15-37); Alanine Aminotransfer ALT/SGPT 23 U/L (13-56); Albumin, Serum 3.8 g/dL (3.2-5.0); Alkaline Phosphatase 58 U/L (45-117); Anion Gap 5 (5-15); BUN 31 mg/dL (7-18); BUN/Creat Ratio 33.2 RATIO (10-20); Calcium,Total 8.8 mg/dL (8.5-10.1); Chloride 92 mmol/L (98-107); Creatinine, Serum 0.93 mg/dL (0.55-1.02); EST Glomerular Filtration Rate 61 mL/min (>60); Est Glom Filt Rate - Afr Amer 74 mL/min (>60); Globulin 3.8 g/dL (2.2-4.2); Glucose 94 mg/dL (74-106); Potassium 4.6 mmol/L (3.5-5.1); Protein, Total 7.6 g/dL (6.4-8.2); Sodium Level 128 mmol/L (136-145); Thyroid Stim Hormone (TSH) 1.34 uIU/mL (0.358-3.74)
== END | disposition home or self-care (01) ==
LOC: MTLAB 16:00
PROVIDERS: Family Provider Family Medicine; PCP Family Medicine; Referring Provider Family Medicine; Visit Provider Family Medicine
DX: I10 Essential (primary) hypertension (principal); M81.0 Age-related osteoporosis without current pathological fracture
CPT/HCPCS: 36415; 80053; 82306; 84443

== ENCOUNTER → 2019-02-01 14:18 | Outpatient (CLI) | payer MEDICARE, BC, SELFPAY ==
[2019-01-19 12:50] VITALS: BMI 33.2
[2019-02-01 17:32] LABS: Absolute Lymphocyte Count 0.44 X10^3/uL (0.83-4.51); Absolute Neutrophil Count 7.2 X10^3/uL (2.0-7.7); Basophil# 0.02 X10^3/uL; Basophil% 0.2 % (0-1); Eosinophil# 0.11 X10^3/uL; Eosinophils% 1.3 % (0-5); Hematocrit 39.7 % (37-47); Hemoglobin 12.7 g/dL (12.0-15.0); Lymphocyte # 0.44 X10^3/ul (4.0); Lymphocyte % 5.4 % (19-41); Mean Corpuscular Hgb 30.4 pg (27.0-32.0); Mean Platelet Vol. 9.9 fl (6.2-12.0); Monocyte# 0.43 X10^3/uL; Monocyte% 5.2 % (0-10); NRBC Flagged by Analyzer 0 % (0-5); Neutrophil # 7.18 X10^3/uL (2.7-7.7); Neutrophil % 87.7 % (47-70); POSITIVE DIFFERENTIAL YES; POSITIVE MORPHOLOGY YES; Platelet Count 316 K/mm3 (150-450); RBC Distribution Width CV 13.3 % (11.6-14.6); RBC Distribution Width SD 46.5 fl (35.1-43.9); Red Blood Count 4.18 M/mm3 (4.2-5.4); White Blood Count 8.2 K/mm3 (4.4-11.0)
[2019-02-01 17:45] LABS: International Normalized Ratio 3.4; Prothrombin Time (Protime)PT. 34.6 SECONDS (11.7-14.9)
[2019-02-01 17:46] LABS: Anion Gap 9 (5-15); BUN 19 mg/dL (7-18); BUN/Creat Ratio 22.9 RATIO (10-20); Calcium,Total 8.3 mg/dL (8.5-10.1); Chloride 102 mmol/L (98-107); Creatinine, Serum 0.83 mg/dL (0.55-1.02); EST Glomerular Filtration Rate 70 mL/min (>60); Est Glom Filt Rate - Afr Amer 85 mL/min (>60); Glucose 109 mg/dL (74-106); Magnesium 2.1 mg/dL (1.6-2.6); Potassium 4.1 mmol/L (3.5-5.1); Sodium Level 139 mmol/L (136-145)
[2019-02-01 17:49] LABS: Vitamin D,25 Hydroxy 53.4 ng/mL (29.95-100.01)
[2019-02-01 18:03] LABS: Differential Indicated SCAN CRITERIA MET
[2019-02-01 18:11] LABS: Anisocytosis 1+; Platelet Estimate ADEQUATE (ADEQ)
[2019-02-01 18:12] LABS: Macrocytosis 1+
[2019-02-02 14:38] LABS: Pathologist Review Reviewed
== END ==
PROVIDERS: Family Provider Family Medicine; PCP Family Medicine; Referring Provider Family Medicine; Visit Provider Family Medicine
DX: I48.91 Unspecified atrial fibrillation (principal); B34.9 Viral infection, unspecified; E87.1 Hypo-osmolality and hyponatremia; G25.81 Restless legs syndrome; M81.0 Age-related osteoporosis without current pathological fracture
CPT/HCPCS: 36415; 80048; 82306; 83735; 85025; 85610

== ENCOUNTER → 2019-02-16 12:21 | Outpatient (CLI) | payer MEDICARE, BC, SELFPAY ==
[2019-01-19 12:50] VITALS: BMI 33.2
--- NOTE | 2019-02-16 12:24 | RAD_ITS ---
STUDY: X-RAY - LEFT TIBIA AND FIBULA REASON FOR EXAM: Bruising and swelling after injury 3 days ago. TECHNIQUE: 2 view(s) of the tibia and fibula were obtained. COMPARISON: None. FINDINGS: There is osteopenia. Normal visualized tibia. Normal visualized fibula. The soft tissue structures are unremarkable. RAD/Tibia & Fibula 2 Views IMPRESSION: Osteopenia. No demonstrated fracture. Electronically Signed: Eber Paulson MD at 15:21 EDT Tel , Service support ,
== END ==
PROVIDERS: Family Provider Family Medicine; PCP Family Medicine; Referring Provider Family Medicine; Visit Provider Family Medicine
DX: S80.12XA Contusion of left lower leg, initial encounter (principal)
CPT/HCPCS: 73590

== ENCOUNTER → 2019-02-22 10:36 | Outpatient (CLI) | payer MEDICARE, BC, SELFPAY ==
[2018-07-21 10:55] VITALS: BMI 33.0
[2019-01-19 12:50] VITALS: BMI 33.2
--- NOTE | 2019-02-22 10:38 | BI_ITS ---
MAMMOGRAPHY - BILATERAL SCREENING REASON FOR EXAM: Female, 83 years old. Routine annual screening examination. PERTINENT HISTORY: Grandmother with breast cancer. TECHNIQUE: Digital bilateral breast brandon (3D mammographic acquisition) in the CC and MLO projections. 2-D mediolateral oblique (MLO) and craniocaudad (CC) views of both breasts were obtained. CAD: Full Field Digital Mammography with Computer Added Detection was performed. COMPARISON: Comparison is made with prior study dated January 16, 2018 and November 21, 2016. FINDINGS: Breast Composition: The breasts are heterogeneously dense, which may obscure small masses. There are no dominant masses or suspicious calcifications. No other significant abnormalities are identified. There has been no significant change since the prior study. BI/SCREEN MAMM (CAD) W/BRANDON BILAT IMPRESSION: Stable bilateral screening mammogram. Yearly follow-up mammogram recommended. (A) ASSESSMENT CATEGORY: BIRADS Category 1: Negative. A letter regarding these results will be sent to the patient by the facility within 30 days. Approximately 10% of breast cancers are not detected by mammography. A normal mammogram should not delay biopsy of a clinically suspicious abnormality. [id number] Electronically Signed: Chris Clark, at 13:56 EDT , Service support ,
== END ==
PROVIDERS: Family Provider Family Medicine; PCP Family Medicine; Referring Provider Family Medicine; Visit Provider Family Medicine
DX: Z12.31 Encounter for screening mammogram for malignant neoplasm of breast (principal)
CPT/HCPCS: 77063; 77067

== ENCOUNTER 2019-03-28 22:41 | Emergency (ER) | payer MEDICARE, BC, SELFPAY ==
[2019-01-19 12:50] VITALS: BMI 33.2
[2019-03-28 22:42] VITALS: BP 201/106; PULSE 82; RESP 14; TEMP 37; O2SAT 94; BMI 34.2
--- NOTE | 2019-03-28 22:57 | RAD_ITS ---
STUDY: X-RAY CHEST REASON FOR EXAM: Female, 84 years old. Cough, fever TECHNIQUE: PA and lateral views of the chest. COMPARISON: 07/06/2018 FINDINGS: EKG leads overlie the chest Lungs are hyperexpanded, with chronic interstitial changes, no superimposed acute pulmonary process. There is no demonstrated pleural abnormality. Normal size heart. Normal mediastinum and lisa. Normal visualized pulmonary arteries. There is atherosclerotic calcification of the aortic arch with tortuosity. There are diffuse degenerative changes of the visualized thoracic spine. Normal visualized ribs, clavicles, and shoulders. There is no demonstrated abnormality of the visualized soft tissue structures of the upper abdomen. RAD/Chest PA and Lateral IMPRESSION: Hyperexpanded lungs with chronic interstitial changes, no superimposed acute pulmonary process Electronically Signed: Jong Melendez MD at 23:41 EST , Service support ,
--- NOTE | 2019-03-28 22:57 | EKG12_ITS ---
Test Reason : SOB Blood Pressure : / mmHG Vent. Rate : 086 BPM Atrial Rate : 086 BPM P-R Int : 162 ms QRS Dur : 118 ms QT Int : 362 ms P-R-T Axes : 036 005 030 degrees QTc Int : 433 ms Normal sinus rhythm Incomplete right bundle branch block Borderline ECG Confirmed by JAHAIRA URBAN, OTONIEL ([id number]), editor trade journal JAVAD TIWARI ([id number]) on 03/30/2019 11:46:17 AM Referred By: CIRILO Confirmed By:OTONIEL CAMPO MD
--- NOTE | 2019-03-28 22:58 | ED.DCSUM_ITS ---
History of Present Illness Chief Complaint: Shortness of Breath Informant: Patient Narrative: Stated she has had cough nasal congestion runny nose and weakness with intermittent fevers for the last 5 days. She saw her family doctor 3 days ago and told her she had a viral illness. She has not taken anything other than [id number]-[id number] Garnica's and Tylenol for her fevers. T-max 102. Her last Tylenol she stated was earlier today this afternoon. She stated that she has been coughing up some mucus. She is on Coumadin. Unsure when her last INR check was. She states that she has had some bloody nasal mucus when she blows her nose. Patient denies any sick contacts. History of non-smoking. Dad does have a history of pneumonia in the remote past. She did get a flu shot. Denies any shortness of breath currently. 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 (10) Hypertensive emergency Status: Resolved Past Medical History - Allergies and Home Meds Allergies/Adverse Reactions: Allergies beet [Beet] Allergy (Verified 03/28/19 22:51) Hives levofloxacin [From Levaquin] Allergy (Verified 03/28/19 22:51) Unknown Penicillins Allergy (Verified 03/28/19 22:51) Unknown wheat Allergy (Verified 03/28/19 22:51) Hives gabapentin [From Neurontin] Adverse Reaction (Verified 03/28/19 22:51) Other meloxicam [From Mobic] Adverse Reaction (Verified 03/28/19 22:51) Other oxycodone [From OxyIR] Adverse Reaction (Verified 03/28/19 22:51) Nausea risedronate sodium [From Actonel] Adverse Reaction (Verified 03/28/19 22:51) Other CANTALOPE Allergy (Uncoded 03/28/19 22:51) Hives CONCENTRATES Allergy (Uncoded 03/28/19 22:51) Hives EGGPLANT Allergy (Uncoded 03/28/19 22:51) Hives MOLD Allergy (Uncoded 03/28/19 22:51) Unknown PROCESSED FOODS Allergy (Uncoded 03/28/19 22:51) Hives Primary Care Physician: Doyle Swenson MD [Primary Care Provider] - Prior records reviewed: Yes Past Medical History: - - See problem list Surgical History: - - Thyroidectomy Parathyroidectomy Thyroidectomy Lives: With Family Smoking Status: Never smoker Alcohol: None Drugs: None - Family History Paternal Family History: Family History (Last Reviewed 01/19/19 @ 13:15 by MIKE Park) Other Diabetes Heart disease Family History: Reports: No pertinent history Sibling Family History: Family History (Last Reviewed 01/19/19 @ 13:15 by MIKE Park) Other Diabetes Heart disease Family History: Reports: Heart Disease - Brother Review of Systems General: Reports: Fever. Denies: Chills, Sweats Eyes: Denies: Visual changes - bilaterally, Diplopia ENT: Denies: Rhinorrhea, Sore throat Cardiovascular: Denies: Chest pain, Palpitations Respiratory: Reports: Cough, Sputum. Denies: Dyspnea, Dyspnea on exertion Gastrointestinal: Denies: Abdominal pain, Nausea, Vomiting, Diarrhea, Melena, Hematochezia Genitourinary: Denies: Dysuria, Hematuria, Frequency Musculoskeletal: Denies: Back pain, Extremity Pain Skin: Denies: Rash, Wounds Neurological: Reports: Weakness. Denies: Headache, Numbness Physical Exam Vital Signs/Narrative: Vital Signs Temp Pulse Resp BP Pulse Ox 03/28/19 22:42 98.6 F 82 14 201/106 H 94 General: Well nourished, Well developed, No Acute Distress Head: Normocephalic, Atraumatic Eyes: Perrl, EOMI ENT: Moist mucous membranes, No rhinorrhea, Nasal congestion Neck: Supple, Nontender Cardiovascular: Regular rate, Regular rhythm, No murmurs Respiratory: No distress, CTA bilaterally, Chest nontender Abdomen: Soft, Nontender, Nondistended, Normal bowel sounds Back: Nontender, Normal Inspection Extremities: Nontender, No edema Skin: Normal color, No rash Neurological: Alert, Oriented x3, Cranial nerves II-XII grossly intact, Normal Strength, Normal Sensation Psychological: Normal affect, Normal Mood Diagnostic/Tx/Re-eval Impressions Chest X-Ray 03/28/19 22:57 IMPRESSION: Hyperexpanded lungs with chronic interstitial changes, no superimposed acute pulmonary process Electronically Signed: Jong Melendez MD at 23:41 EST , Service support , 03/28/19 22:57 Chest PA and Lateral [RAD] Stat Laboratory Results 03/28/19 03/28/19 03/28/19 23:09 23:09 23:09 WBC 10.2 RBC 3.49 L Hgb 10.7 L Hct 32.8 L MCV 94.0 MCH 30.7 MCHC 32.6 RDW Std Deviation 44.6 H RDW Coeff of Tiffani 13.0 Plt Count 269 MPV 10.0 Immature Gran % (Auto) 0.200 Neut % (Auto) 71.6 H Lymph % (Auto) 14.1 L Josephine % (Auto) 11.5 H Eos % (Auto) 2.3 Baso % (Auto) 0.3 Absolute Neuts (auto) 7.3 Absolute Lymphs (auto) 1.44 Nucleated RBC % 0 PT 31.4 H INR 3.0 Sodium 132 L Potassium 4.6 Chloride 99 Carbon Dioxide 26.0 Anion Gap 7 BUN 14 Creatinine 0.69 Estim Creat Clear Calc 32.17 Est GFR (MDRD) Af Amer 104 Est GFR (MDRD) Non-Af 86 BUN/Creatinine Ratio 20.2 H Glucose 110 H Calcium 8.3 L - Medical Decision Making Lab work chest x-ray EKG obtained. EKG shows sinus rhythm incomplete right bundle branch block rate of 86 no ischemia. Lab work shows no elevated white count but a left shift noted. Calcium mildly low which is chronic for the patient. INR is 3.0. Influenza negative. Chest x-ray shows no acute infiltrates or pneumonia. Patient given azithromycin for suspected bronchitis. At this time she is just been having some mild bleeding from her nose when she blows it. I feel she can follow-up as an outpatient. She will use lubricant for her nares ED Disposition - Plan for ED Patient: Disposition: Home or Assisted Living Diagnosis: Acute bronchitis Instructions: BRONCHITIS, Antiobiotic Treatment (Adult) Prescriptions: Azithromycin 250 mg PO DAILY #4 tab Prescription Printed Referrals: Doyle Swenson MD [Primary Care Provider] -
[2019-03-28 23:20] LABS: Absolute Lymphocyte Count 1.44 X10^3/uL (0.83-4.51); Absolute Neutrophil Count 7.3 X10^3/uL (2.0-7.7); Basophil# 0.03 X10^3/uL; Basophil% 0.3 % (0-1); Eosinophil# 0.23 X10^3/uL; Eosinophils% 2.3 % (0-5); Hematocrit 32.8 % (37-47); Hemoglobin 10.7 g/dL (12.0-15.0); Lymphocyte # 1.44 X10^3/ul (4.0); Lymphocyte % 14.1 % (19-41); Mean Corp Hgb Conc 32.6 g/dL (32-36); Mean Corpuscular Hgb 30.7 pg (27.0-32.0); Monocyte# 1.18 X10^3/uL; Monocyte% 11.5 % (0-10); NRBC Flagged by Analyzer 0 % (0-5); Neutrophil # 7.32 X10^3/uL (2.7-7.7); Neutrophil % 71.6 % (47-70); Platelet Count 269 K/mm3 (150-450); RBC Distribution Width SD 44.6 fl (35.1-43.9); Red Blood Count 3.49 M/mm3 (4.2-5.4); White Blood Count 10.2 K/mm3 (4.4-11.0)
[2019-03-28 23:32] LABS: Prothrombin Time (Protime)PT. 31.4 SECONDS (11.7-14.9)
[2019-03-28 23:55] LABS: Anion Gap 7 (5-15); BUN 14 mg/dL (7-18); BUN/Creat Ratio 20.2 RATIO (10-20); Calcium,Total 8.3 mg/dL (8.5-10.1); Chloride 99 mmol/L (98-107); Creatinine, Serum 0.69 mg/dL (0.55-1.02); EST Glomerular Filtration Rate 86 mL/min (>60); Est Glom Filt Rate - Afr Amer 104 mL/min (>60); Estimated Creatinine Clearance 32.17 ml/min; Glucose 110 mg/dL (74-106); Potassium 4.6 mmol/L (3.5-5.1); Sodium Level 132 mmol/L (136-145)
[2019-03-29] MEDS: Azithromycin 250 MG Tablet 500 MG PO (00:23)
[2019-03-29 00:31] VITALS: BP 124/69; PULSE 72; RESP 15; O2SAT 95
== END 2019-03-29 00:32 | disposition home or self-care (01) ==
PROVIDERS: Emergency Provider Emergency Medicine; Family Provider Family Medicine; PCP Family Medicine
DX: J20.9 Acute bronchitis, unspecified (principal); I45.10 Unspecified right bundle-branch block; E83.51 Hypocalcemia; I10 Essential (primary) hypertension; I48.20 Chronic atrial fibrillation, unspecified; Z87.01 Personal history of pneumonia (recurrent); Z79.01 Long term (current) use of anticoagulants; Z79.82 Long term (current) use of aspirin; Z79.899 Other long term (current) drug therapy
CPT/HCPCS: 71046; 80048; 85025; 85610; 87804; 93005; 99285; A4216

== ENCOUNTER → 2019-05-27 14:50 | Outpatient (CLI) | payer MEDICARE, BC, SELFPAY ==
[2019-05-27 17:40] LABS: Absolute Lymphocyte Count 1.61 X10^3/uL (0.83-4.51); Absolute Neutrophil Count 2.9 X10^3/uL (2.0-7.7); Basophil# 0.05 X10^3/uL; Eosinophil# 0.11 X10^3/uL; Eosinophils% 2.2 % (0-5); Hematocrit 39.2 % (37-47); Hemoglobin 12.2 g/dL (12.0-15.0); Lymphocyte # 1.61 X10^3/ul (4.0); Lymphocyte % 31.6 % (19-41); Mean Corp Hgb Conc 31.1 g/dL (32-36); Mean Corpuscular Volume 96.6 fL (81-99); Mean Platelet Vol. 10.6 fl (6.2-12.0); Monocyte# 0.45 X10^3/uL; Monocyte% 8.8 % (0-10); NRBC Flagged by Analyzer 0 % (0-5); Neutrophil # 2.87 X10^3/uL (2.7-7.7); Neutrophil % 56.2 % (47-70); Platelet Count 299 K/mm3 (150-450); RBC Distribution Width CV 12.6 % (11.6-14.6); RBC Distribution Width SD 44.8 fl (35.1-43.9); Red Blood Count 4.06 M/mm3 (4.2-5.4); White Blood Count 5.1 K/mm3 (4.4-11.0)
[2019-05-27 17:44] LABS: Erythrocyte Sedimentation Rate 18 mm/hr (0-30)
[2019-05-27 18:08] LABS: AST(SGOT) 22 U/L (15-37); Alanine Aminotransfer ALT/SGPT 26 U/L (13-56); Albumin, Serum 3.8 g/dL (3.2-5.0); Alkaline Phosphatase 50 U/L (45-117); Anion Gap 3 (5-15); BUN 19 mg/dL (7-18); BUN/Creat Ratio 23.1 RATIO (10-20); CPK Total, Creatine Kinase 472 U/L (26-192); CRP 3.06 mg/L (0.0-3.0); Calcium,Total 9.1 mg/dL (8.5-10.1); Chloride 100 mmol/L (98-107); Creatinine, Serum 0.82 mg/dL (0.55-1.02); EST Glomerular Filtration Rate 71 mL/min (>60); Est Glom Filt Rate - Afr Amer 86 mL/min (>60); Ferritin 31 ng/mL (8-252); Globulin 3.8 g/dL (2.2-4.2); Glucose 87 mg/dL (74-106); Potassium 4.3 mmol/L (3.5-5.1); Protein, Total 7.6 g/dL (6.4-8.2); Rheumatoid Factor < 10.0 IU/mL (<15); Sodium Level 137 mmol/L (136-145); Thyroid Stim Hormone (TSH) 1.01 uIU/mL (0.358-3.74); Vitamin D,25 Hydroxy 54.8 ng/mL (29.95-100.01)
[2019-06-01 17:06] LABS: ANTINUCLEAR ANTIBODIES DIRECT Negative (Negative); Aldolase 7.2 U/L (3.3-10.3)
== END ==
PROVIDERS: PCP Family Medicine; Visit Provider Family Medicine
DX: M79.10 Myalgia, unspecified site (principal); G25.81 Restless legs syndrome; M35.3 Polymyalgia rheumatica; I48.91 Unspecified atrial fibrillation
CPT/HCPCS: 36415; 80053; 82085; 82306; 82550; 82728; 84443; 85025; 85652; 86038; 86140; 86431

== ENCOUNTER → 2019-06-02 10:26 | Outpatient (CLI) | payer MEDICARE, BC, SELFPAY | PROVIDERS: PCP Family Medicine; Referring Provider Family Medicine; Visit Provider Family Medicine | DX: R74.8 Abnormal levels of other serum enzymes (principal) | CPT/HCPCS: 36415 ==

== ENCOUNTER → 2020-02-09 10:48 | Outpatient (CLI) | payer MEDICARE, BC, SELFPAY ==
[2019-10-08 10:17] VITALS: BMI 33.6
--- NOTE | 2020-02-09 10:52 | RAD_ITS ---
STUDY: X-RAY - CERVICAL SPINE REASON FOR EXAM: Female, 84 years old. right sided shoulder pain and neck pain for a couple weeks, no injury TECHNIQUE: 4 view(s) of the cervical spine were obtained. COMPARISON: May 27 2017 FINDINGS: Normal anterior atlantoaxial articulation. Normal odontoid process. Normal cervical lordosis. Normal vertebral bodies and endplates. Normal disc space heights. Normal visualized intervertebral neuroforamina. The soft tissue structures are unremarkable. RAD/Cerv Spine 4 or 5 Views IMPRESSION: Normal x-ray examination of the visualized cervical spine. Electronically Signed: Lorena Robison, at 12:24 EDT Tel , Service support ,
--- NOTE | 2020-02-09 10:55 | RAD_ITS ---
STUDY: X-RAY - RIGHT SHOULDER REASON FOR EXAM: Female, 84 years old. right sided shoulder pain and neck pain for a couple weeks, no injury TECHNIQUE: 4 view(s) of the shoulder. COMPARISON: None. FINDINGS: Normal glenohumeral articulation. Normal acromioclavicular joint. Normal acromion. Normal humeral head and visualized proximal humerus. The soft tissue structures are unremarkable. There is no demonstrated fracture. Normal visualized pulmonary apex. RAD/Shoulder min 2 Views IMPRESSION: Normal x-ray examination of the shoulder. Electronically Signed: Tyler Stanley MD at 17:45 EDT , Service support ,
== END ==
PROVIDERS: PCP Family Medicine; Referring Provider Family Medicine; Visit Provider Family Medicine
DX: M75.21 Bicipital tendinitis, right shoulder (principal); M54.9 Dorsalgia, unspecified
CPT/HCPCS: 72050; 73030

== ENCOUNTER → 2020-02-22 14:36 | Outpatient (CLI) | payer MEDICARE, BC, SELFPAY ==
[2019-10-08 10:17] VITALS: BMI 33.6
--- NOTE | 2020-02-22 14:37 | ECHOD_ITS ---
Reason For Study: Dyspnea/SOB Procedure This was a 2D Doppler, Color Flow transthoracic echocardiogram. Patient unable to lay on left side or flat due to dizziness. Echo done with patient sitting at 60 degrees. The study was technically difficult. Exam performed in department. Left Ventricle Normal LV size. Left ventricular systolic function is normal. The estimated ejection fraction is 65 %. There is evidence of diastolic dysfunction. No regional wall motion abnormalities noted. Right Ventricle Normal RV size. Normal systolic function. Atria Normal left atrium. Normal right atrium. No doppler evidence for ASD. Mitral Valve There is mild mitral annular calcification. Extension of the mitral annular calcification onto the base of the mitral valve leaflets. Moderate (2+) mitral valve insufficiency. Tricuspid Valve Normal tricuspid valve. Moderate (2+) tricuspid valve insufficiency. Right ventricular systolic pressure estimated to be 40 mmHg. Aortic Valve Trisinus/trileaflet aortic valve. Mild focal aortic valve thickening. Trivial aortic valve insufficiency. Pulmonic Valve The pulmonic valve is not well visualized. Great Vessels Normal sized aortic root. Pericardium/Pleural No pericardial effusion. MMode/2D Measurements & Calculations RVDd: 3.3 cm Ao root diam: 2.6 cm LAV(MOD-bp): 55.9 ml LAV(MOD-bp) Indexed: 32.1 ml/m2 LAV(MOD-sp2): 58.9 ml LAV(MOD-sp4): 52.0 ml LA A4 area: 18.6 cm2 RA A4 area: 14.3 cm2 Time Measurements MV dec time: 0.27 sec Doppler Measurements & Calculations MV E max burton: 99.8 cm/sec Lat Peak E' Burton: 8.2 cm/sec Med Peak E' Burton: 6.5 cm/sec MV A max burton: 114.9 cm/sec E/E' lat: 12.2 E/E' med: 15.5 MV E/A: 0.87 MV V2 max: 128.1 cm/sec MV P1/2t max burton: 113.6 cm/sec Ao V2 max: 112.5 cm/sec MV max P.6 mmHg MV P1/2t: 96.6 msec Ao max P.1 mmHg MV V2 mean: 75.7 cm/sec MV dec slope: 344.5 cm/sec2 MV mean P.6 mmHg MV V2 VTI: 37.6 cm MVA(P1/2t): 2.3 cm2 AI max burton: 409.0 cm/sec LV V1 max: 104.8 cm/sec PA V2 max: 90.5 cm/sec AI max P.9 mmHg LV V1 max P.4 mmHg AI dec slope: 236.0 cm/sec2 AI P1/2t: 507.6 msec TR max burton: 302.9 cm/sec TR max P.7 mmHg Interpretation Summary The study was technically difficult. Left ventricular systolic function is normal. The estimated ejection fraction is 65 %. There is mild mitral annular calcification. Extension of the mitral annular calcification onto the base of the mitral valve leaflets. Moderate (2+) mitral valve insufficiency. Moderate (2+) tricuspid valve insufficiency. Mild focal aortic valve thickening. Trivial aortic valve insufficiency. Right ventricular systolic pressure estimated to be 40 mmHg. There is evidence of diastolic dysfunction. Ordering Physician: Juan Jose Thomas Referring Physician: Hussein Swenson MD Performed By: Devante Tripp RCS
== END ==
PROVIDERS: PCP Family Medicine; Referring Provider Internal Medicine Pulmonary Disease; Visit Provider Internal Medicine Pulmonary Disease
DX: R06.00 Dyspnea, unspecified (principal); I48.91 Unspecified atrial fibrillation
CPT/HCPCS: 93306

== ENCOUNTER → 2020-03-03 10:32 | Outpatient (CLI) | payer MEDICARE, BC, SELFPAY ==
[2019-10-08 10:17] VITALS: BMI 33.6
--- NOTE | 2020-03-03 10:34 | BI_ITS ---
MAMMOGRAPHY - BILATERAL SCREENING REASON FOR EXAM: Female, 84 years old. Routine annual screening examination. PERTINENT HISTORY: Grandmother with breast cancer. TECHNIQUE: Digital bilateral breast brandon (3D mammographic acquisition) in the CC and MLO projections. 2-D mediolateral oblique (MLO) and craniocaudad (CC) views of both breasts were obtained. CAD: Full Field Digital Mammography with Computer Added Detection was performed. COMPARISON: Comparison is made with prior study dated 02/22/2019 and 01/16/2018. FINDINGS: Breast Composition: The breasts are heterogeneously dense, which may obscure small masses. There are no dominant masses or suspicious calcifications. No other significant abnormalities are identified. There has been no significant change since the prior study. BI/SCREEN MAMM (CAD) W/BRANDON BILAT IMPRESSION: Stable bilateral screening mammogram. Yearly follow-up mammogram recommended. (A) ASSESSMENT CATEGORY: BIRADS Category 1: Negative. A letter regarding these results will be sent to the patient by the facility within 30 days. Approximately 10% of breast cancers are not detected by mammography. A normal mammogram should not delay biopsy of a clinically suspicious abnormality. [id number] Electronically Signed: Chris Clark, at 11:27 EDT , Service support ,
== END ==
PROVIDERS: PCP Family Medicine; Referring Provider Family Medicine; Visit Provider Family Medicine
DX: Z12.31 Encounter for screening mammogram for malignant neoplasm of breast (principal); Z80.3 Family history of malignant neoplasm of breast
CPT/HCPCS: 77063; 77067

== ENCOUNTER → 2020-04-24 08:42 | Outpatient (CLI) | payer MEDICARE, BC, SELFPAY ==
[2020-04-05 14:17] VITALS: BMI 33.0
[2020-04-24 10:04] LABS: Anion Gap 5 (5-15); BUN 27 mg/dL (7-18); Calcium,Total 8.7 mg/dL (8.5-10.1); Chloride 106 mmol/L (98-107); Cholesterol 269 mg/dL (200); Creatinine, Serum 0.87 mg/dL (0.55-1.02); EST Glomerular Filtration Rate 66 mL/min (>60); Est Glom Filt Rate - Afr Amer 80 mL/min (>60); Glucose 97 mg/dL (74-106); High Density Lipoprotein 116 mg/dL; Potassium 4.3 mmol/L (3.5-5.1); Sodium Level 140 mmol/L (136-145); Triglycerides 73 mg/dL; Very Low Density Lipoprotein 15 mg/dL (5-40)
== END ==
PROVIDERS: PCP Family Medicine; Referring Provider Family Medicine; Visit Provider Family Medicine
DX: I48.91 Unspecified atrial fibrillation (principal); I10 Essential (primary) hypertension
CPT/HCPCS: 36415; 80048; 80061; 84403

== ENCOUNTER → 2020-05-29 16:23 | Outpatient (CLI) | payer MEDICARE, BC, SELFPAY ==
[2020-04-05 14:17] VITALS: BMI 33.0
[2020-05-29 18:20] LABS: Hematocrit 40.8 % (37-47); Hemoglobin 12.5 g/dL (12.0-15.0); Mean Corp Hgb Conc 30.6 g/dL (32-36); Mean Corpuscular Volume 94.7 fL (81-99); Platelet Count 303 K/mm3 (150-450); RBC Distribution Width CV 12.3 % (11.6-14.6); RBC Distribution Width SD 42.7 fl (35.1-43.9); Red Blood Count 4.31 M/mm3 (4.2-5.4); White Blood Count 7.3 K/mm3 (4.4-11.0)
[2020-05-29 18:54] LABS: Anion Gap 6 (5-15); BUN 27 mg/dL (7-18); BUN/Creat Ratio 26.7 RATIO (10-20); Calcium,Total 9.3 mg/dL (8.5-10.1); Chloride 101 mmol/L (98-107); Creatinine, Serum 1.01 mg/dL (0.55-1.02); EST Glomerular Filtration Rate 56 mL/min (>60); Est Glom Filt Rate - Afr Amer 67 mL/min (>60); Glucose 80 mg/dL (74-106); Magnesium 2.4 mg/dL (1.6-2.6); Potassium 4.3 mmol/L (3.5-5.1); Sodium Level 138 mmol/L (136-145); Thyroid Stim Hormone (TSH) 1.18 uIU/mL (0.358-3.74)
== END ==
PROVIDERS: PCP Family Medicine; Visit Provider Family Medicine
DX: I48.91 Unspecified atrial fibrillation (principal); M81.0 Age-related osteoporosis without current pathological fracture
CPT/HCPCS: 36415; 80048; 82306; 83735; 84443; 85027

== ENCOUNTER → 2020-06-08 13:46 | Outpatient (CLI) | payer MEDICARE, BC, SELFPAY ==
[2020-04-05 14:17] VITALS: BMI 33.0
--- NOTE | 2020-06-08 13:57 | BD_ITS ---
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 COMPARISON: Comparison is made with prior examination dated 04/28/2018. FINDINGS: Lumbar Spine (L1-L4): g/cm2 (0.873) / T-score (-2.6) / Z-score (-0.7) Findings are suggestive of osteoporosis with a high fracture risk. Left Femur Total: g/cm2 (0.776) / T-score (-1.8) / Z-score (0.4) Left Femoral Neck: g/cm2 (0.709) / T-score (-2.4) / Z-score (0.0) Right Femur Total: g/cm2 (0.727) / T-score (-2.2) / Z-score (0.0) Right Femoral Neck: g/cm2 (0.726) / T-score (-2.2) / Z-score (0.1) The T-Scores on the most recent prior examination were: Lumbar Spine (L1-L4): There has been improvement of bone density since the previous examination. Left Femur Total: which represents an improvement of 0.6%. Right Femur Total: which represents an improvement of 3.3%. BD/Dexa Bone Density Study IMPRESSION: The patient is considered osteoporotic as outlined below according to World Filemon Organization (WHO) criteria with a high fracture risk. There has been improvement of bone density since the previous examination. Reference Information: The T-score is the number of standard deviations above or below the standard which is normal for young adults at their peak bone mineral density. The World Health Organization (WHO) interprets the T-scores as follows: Above -1 Normal bone density Between -1 and -2.5 Osteopenia Equal to / or below -2.5 Osteoporosis As a practical clinical guideline, osteopenia may be graded as follows: Mild -1 through -1.5 Moderate -1.6 through -2.0 Severe -2.1 through -2.4 The Z-score is the number of standard deviations above or below age-matched controls. A Z-score of less than -1.5 would be considered abnormal. References: 1. NIH Osteoporosis and Related Bone Diseases www osteo.org 2. International Society for Clinical Densitometry www iscd.org 3. National Osteoporosis Foundation www nof.org Electronically Signed: Chris Clark MD at 14:44 EST , Service support ,
== END ==
PROVIDERS: PCP Family Medicine; Referring Provider Family Medicine; Visit Provider Family Medicine
DX: Z12.31 Encounter for screening mammogram for malignant neoplasm of breast (principal); M81.0 Age-related osteoporosis without current pathological fracture; Z78.0 Asymptomatic menopausal state
CPT/HCPCS: 77080

== ENCOUNTER 2020-06-09 10:37 | Outpatient (RCR) | payer MEDICARE, BC, SELFPAY ==
[2020-04-05 14:17] VITALS: BMI 33.0
== END 2020-06-09 23:59 ==
LOC: IMMUN 10:37
PROVIDERS: PCP Family Medicine; Visit Provider Family Medicine
DX: Z23 Encounter for immunization (principal)
CPT/HCPCS: 0011A; 0012A; 91301

== ENCOUNTER → 2020-11-27 14:05 | Outpatient (CLI) | payer MEDICARE, BC, SELFPAY ==
[2020-08-04 14:40] VITALS: BMI 33.0
[2020-11-27 18:00] LABS: Erythrocyte Sedimentation Rate 12 mm/hr (0-30)
[2020-11-27 18:02] LABS: Absolute Lymphocyte Count 1.72 X10^3/uL (0.83-4.51); Absolute Neutrophil Count 4.7 X10^3/uL (2.0-7.7); Basophil# 0.05 X10^3/uL; Basophil% 0.7 % (0-1); Eosinophil# 0.13 X10^3/uL; Eosinophils% 1.8 % (0-5); Hemoglobin 11.9 g/dL (12.0-15.0); Lymphocyte # 1.72 X10^3/ul (0.83-4.51); Lymphocyte % 23.9 % (19-41); Mean Corp Hgb Conc 31.3 g/dL (32-36); Mean Corpuscular Hgb 29.5 pg (27.0-32.0); Mean Corpuscular Volume 94.1 fL (81-99); Mean Platelet Vol. 9.8 fl (6.2-12.0); Monocyte# 0.63 X10^3/uL; Monocyte% 8.8 % (0-10); NRBC Flagged by Analyzer 0 % (0-5); Neutrophil # 4.66 X10^3/uL (2.7-7.7); Neutrophil % 64.7 % (47-70); Platelet Count 344 K/mm3 (150-450); RBC Distribution Width CV 13.4 % (11.6-14.6); RBC Distribution Width SD 46.2 fl (35.1-43.9); Red Blood Count 4.04 M/mm3 (4.2-5.4); White Blood Count 7.2 K/mm3 (4.4-11.0)
[2020-11-27 18:11] LABS: Vitamin D,25 Hydroxy 55.4 ng/mL
[2020-11-27 18:14] LABS: AST(SGOT) 20 U/L (15-37); Alanine Aminotransfer ALT/SGPT 27 U/L (13-56); Albumin, Serum 3.8 g/dL (3.2-5.0); Alkaline Phosphatase 56 U/L (45-117); Anion Gap 6 (5-15); BUN 32 mg/dL (7-18); BUN/Creat Ratio 26.4 RATIO (10-20); Calcium,Total 9.2 mg/dL (8.5-10.1); Chloride 96 mmol/L (98-107); Creatinine, Serum 1.21 mg/dL (0.55-1.02); EST Glomerular Filtration Rate 45 mL/min (>60); Est Glom Filt Rate - Afr Amer 54 mL/min (>60); Ferritin 63 ng/mL (8-252); Globulin 3.9 g/dL (2.2-4.2); Glucose 136 mg/dL (74-106); Iron 64 ug/dL (50-170); Potassium 4.6 mmol/L (3.5-5.1); Protein, Total 7.7 g/dL (6.4-8.2); Sodium Level 136 mmol/L (136-145); Thyroid Stim Hormone (TSH) 1.05 uIU/mL (0.358-3.74)
== END ==
PROVIDERS: PCP Family Medicine; Visit Provider Family Medicine
DX: M35.3 Polymyalgia rheumatica (principal); R53.83 Other fatigue; R74.8 Abnormal levels of other serum enzymes; I27.20 Pulmonary hypertension, unspecified; M81.0 Age-related osteoporosis without current pathological fracture
CPT/HCPCS: 36415; 80053; 82306; 82728; 83540; 84443; 85025; 85652; 86140

== ENCOUNTER → 2020-12-11 08:18 | Outpatient (CLI) | payer MEDICARE, BC, SELFPAY ==
[2020-08-04 14:40] VITALS: BMI 33.0
[2020-12-11 10:26] LABS: Anion Gap 4 (5-15); BUN 22 mg/dL (7-18); BUN/Creat Ratio 28.7 RATIO (10-20); Calcium,Total 9.1 mg/dL (8.5-10.1); Chloride 102 mmol/L (98-107); Creatinine, Serum 0.77 mg/dL (0.55-1.02); EST Glomerular Filtration Rate 76 mL/min (>60); Est Glom Filt Rate - Afr Amer 92 mL/min (>60); Glucose 86 mg/dL (74-106); Potassium 4.3 mmol/L (3.5-5.1); Sodium Level 134 mmol/L (136-145)
[2020-12-11 13:23] LABS: BNP,B-Type NATRIURETIC PEPTIDE 77.9 pg/mL (0-100)
[2020-12-12 09:59] LABS: ANTINUCLEAR ANTIBODIES DIRECT Negative (Negative)
== END ==
PROVIDERS: PCP Family Medicine; Referring Provider Family Medicine; Visit Provider Family Medicine
DX: R06.00 Dyspnea, unspecified (principal); I27.20 Pulmonary hypertension, unspecified; I10 Essential (primary) hypertension; M25.50 Pain in unspecified joint
CPT/HCPCS: 36415; 80048; 83880; 86038

== ENCOUNTER → 2021-03-05 15:23 | Outpatient (CLI) | payer MEDICARE, BC, SELFPAY ==
--- NOTE | 2021-03-05 15:26 | BI_ITS ---
MAMMOGRAPHY - BILATERAL SCREENING REASON FOR EXAM: Female, 85 years old. Routine annual screening examination. PERTINENT HISTORY: Grandmother with breast cancer. TECHNIQUE: Digital bilateral breast brandon (3D mammographic acquisition) in the CC and MLO projections. 2-D mediolateral oblique (MLO) and craniocaudad (CC) views of both breasts were obtained. CAD: Full Field Digital Mammography with Computer Added Detection was performed. COMPARISON: Comparison is made with prior study 03/03/2020 and 02/22/2019. FINDINGS: Breast Composition: The breasts are heterogeneously dense, which may obscure small masses. There are no dominant masses or suspicious calcifications. No other significant abnormalities are identified. There has been no significant change since the prior study. BI/SCRN MAMM (CAD)W/BRANDON BILAT IMPRESSION: Stable bilateral screening mammogram. Yearly follow-up mammogram recommended. (A) ASSESSMENT CATEGORY: BIRADS Category 1: Negative. A letter regarding these results will be sent to the patient by the facility within 30 days. Approximately 10% of breast cancers are not detected by mammography. A normal mammogram should not delay biopsy of a clinically suspicious abnormality. [id number] Electronically Signed: Chris Clark MD at 8:06 EDT , Service support ,
== END ==
PROVIDERS: PCP Family Medicine; Referring Provider Family Medicine; Visit Provider Family Medicine
DX: Z12.31 Encounter for screening mammogram for malignant neoplasm of breast (principal); Z80.3 Family history of malignant neoplasm of breast
CPT/HCPCS: 77063; 77067

== ENCOUNTER → 2021-04-23 16:37 | Outpatient (CLI) | payer MEDICARE, BC, SELFPAY ==
[2021-04-23 18:29] LABS: Anion Gap 7 (5-15); BUN 29 mg/dL (7-18); BUN/Creat Ratio 29.1 RATIO (10-20); Calcium,Total 9.5 mg/dL (8.5-10.1); Chloride 103 mmol/L (98-107); EST Glomerular Filtration Rate 56 mL/min (>60); Est Glom Filt Rate - Afr Amer 68 mL/min (>60); Glucose 102 mg/dL (74-106); Potassium 4.4 mmol/L (3.5-5.1); Sodium Level 138 mmol/L (136-145)
[2021-04-23 18:37] LABS: BNP,B-Type NATRIURETIC PEPTIDE 47.4 pg/mL (0-100)
== END ==
PROVIDERS: PCP Family Medicine; Visit Provider Family Medicine
DX: I10 Essential (primary) hypertension (principal)
CPT/HCPCS: 36415; 80048; 83880

== ENCOUNTER → 2021-05-07 10:06 | Outpatient (CLI) | payer MEDICARE, BC, SELFPAY ==
[2021-05-07 12:35] LABS: Anion Gap 6 (5-15); BUN 28 mg/dL (7-18); BUN/Creat Ratio 29.9 RATIO (10-20); Calcium,Total 9.3 mg/dL (8.5-10.1); Chloride 104 mmol/L (98-107); Creatinine, Serum 0.94 mg/dL (0.55-1.02); EST Glomerular Filtration Rate 60 mL/min (>60); Est Glom Filt Rate - Afr Amer 73 mL/min (>60); Glucose 97 mg/dL (74-106); Potassium 4.1 mmol/L (3.5-5.1); Sodium Level 137 mmol/L (136-145)
== END ==
PROVIDERS: PCP Family Medicine; Visit Provider Family Medicine
DX: I10 Essential (primary) hypertension (principal)
CPT/HCPCS: 36415; 80048

== ENCOUNTER → 2021-05-09 | Outpatient (CLI) | payer MEDICARE, BC, SELFPAY | END | disposition home or self-care (01) | LOC: LABSPEC 15:07 | PROVIDERS: PCP Family Medicine; Visit Provider Family Medicine | DX: Z20.822 Contact with and (suspected) exposure to COVID-19 (principal) | CPT/HCPCS: 87635; U0005; U0003 ==

== ENCOUNTER 2021-06-19 14:59 | Outpatient (CLI) | payer MEDICARE, BC, SELFPAY ==
--- NOTE | 2021-06-19 15:03 | RAD_ITS ---
STUDY: X-RAY - PELVIS AND RIGHT HIP REASON FOR EXAM: Female, 86 years old. Hip pain. TECHNIQUE: 3 views of the pelvis and hip. COMPARISON: 11/20/2016. FINDINGS: There is a non-specific bowel gas pattern. Normal visualized soft tissue structures. Osteopenia. Mild arthrosis of both sacroiliac joints. Stable deformity of the right parasymphyseal region which may be secondary to remote trauma. Mild arthrosis of the symphysis pubis unchanged. Normal bilateral ischial tuberosities. Osteoarthritic changes of both hips, right greater than left, slightly progressed since the prior study. RAD/HIP, UNI W/ Pelvis 2-3 Views IMPRESSION: Osteopenia with slight progression of osteoarthritic changes of both hips. No acute abnormality, erosive changes or periostitis. Electronically Signed: Andres Chauhan MD at 9:18 EST ,
[2021-06-19 17:42] LABS: Absolute Lymphocyte Count 1.69 X10^3/uL (0.83-4.51); Absolute Neutrophil Count 3.1 X10^3/uL (2.0-7.7); Basophil# 0.06 X10^3/uL; Basophil% 1.1 % (0-1); Eosinophil# 0.12 X10^3/uL; Eosinophils% 2.2 % (0-5); Hematocrit 37.9 % (37-47); Hemoglobin 11.8 g/dL (12.0-15.0); Lymphocyte # 1.69 X10^3/ul (0.83-4.51); Lymphocyte % 30.6 % (19-41); Mean Corp Hgb Conc 31.1 g/dL (32-36); Mean Corpuscular Hgb 28.4 pg (27.0-32.0); Mean Corpuscular Volume 91.3 fL (81-99); Monocyte# 0.58 X10^3/uL; Monocyte% 10.5 % (0-10); NRBC Flagged by Analyzer 0 % (0-5); Neutrophil # 3.05 X10^3/uL (2.7-7.7); Neutrophil % 55.2 % (47-70); Platelet Count 328 K/mm3 (150-450); RBC Distribution Width CV 13.4 % (11.6-14.6); RBC Distribution Width SD 45.2 fl (35.1-43.9); Red Blood Count 4.15 M/mm3 (4.2-5.4); White Blood Count 5.5 K/mm3 (4.4-11.0)
[2021-06-19 17:58] LABS: BUN 28 mg/dL (7-18); Creatinine, Serum 0.94 mg/dL (0.55-1.02); Glucose 93 mg/dL (74-106)
[2021-06-19 17:59] LABS: ALB/GLOB Ratio 0.8 RATIO (0.9-2.4); AST(SGOT) 21 U/L (15-37); Alanine Aminotransfer ALT/SGPT 23 U/L (13-56); Albumin, Serum 3.6 g/dL (3.2-5.0); Alkaline Phosphatase 59 U/L (45-117); Anion Gap 9 (5-15); BUN/Creat Ratio 29.7 RATIO (10-20); Chloride 99 mmol/L (98-107); EST Glomerular Filtration Rate 60 mL/min (>60); Est Glom Filt Rate - Afr Amer 72 mL/min (>60); Globulin 4.5 g/dL (2.2-4.2); Protein, Total 8.1 g/dL (6.4-8.2); Rheumatoid Factor < 10.0 IU/mL (<15); Sodium Level 137 mmol/L (136-145); Thyroid Stim Hormone (TSH) 0.96 uIU/mL (0.358-3.74)
[2021-06-19 18:03] LABS: Erythrocyte Sedimentation Rate 47 mm/hr (0-30)
[2021-06-21 16:54] LABS: ANTINUCLEAR ANTIBODIES DIRECT Negative (Negative)
== END 2021-06-19 23:59 | disposition home or self-care (01) ==
PROVIDERS: PCP Family Medicine; Referring Provider Family Medicine; Visit Provider Family Medicine
DX: R73.01 Impaired fasting glucose (principal); I48.91 Unspecified atrial fibrillation; M25.559 Pain in unspecified hip
CPT/HCPCS: 36415; 73502; 80053; 84443; 85025; 85652; 86038; 86431

== ENCOUNTER 2021-07-24 01:55 | Inpatient (IN) | payer MEDICARE, BC, SELFPAY ==
[2021-07-24] VITALS (11 sets, daily range): BP systolic 91–156; BP diastolic 34–57; PULSE 65–86; RESP 14–18; TEMP 36.6–37.8; O2SAT 92–99; BMI 33.1
--- NOTE | 2021-07-24 05:29 | CT_ITS ---
EXAM: CT ABDOMEN AND PELVIS WITH INTRAVENOUS CONTRAST CLINICAL INDICATION: PAIN PAIN TECHNIQUE: Helically acquired images were obtained of the abdomen and pelvis with intravenous contrast. This CT exam was performed using one or more of the following dose reduction techniques: automated exposure control, adjustment of the mA and/or kV according to patient size, and/or use of iterative reconstruction technique. This report was created using [employer] report generation technology. CONTRAST: IV 100mL Isovue-300 COMPARISON: None. FINDINGS: LOWER THORAX: There is a small hiatal hernia. There are calcified granulomas in the visualized right lung base. No cardiomegaly. No significant pericardial effusion. ABDOMEN: LIVER: Unremarkable. Homogeneous. No focal mass. GALLBLADDER AND BILE DUCTS: Gallbladder surgically absent. There is mild intrahepatic bile duct dilatation which probably represents physiologic change post cholecystectomy. PANCREAS: Unremarkable. No focal cystic or solid mass. SPLEEN: Unremarkable. Normal size without focal cystic or solid mass. ADRENALS: Unremarkable. No nodules. KIDNEYS AND URETERS: Unremarkable. Normal renal size and position. No hydronephrosis. STOMACH AND BOWEL: There is mural thickening of multiple loops of ileum within the pelvis, and there is also infiltration of adjacent mesenteric fat. Findings suggest an infectious or inflammatory enteritis. The distalmost loops of ileum and terminal ileum appear normal. There is moderately prominent colonic feces which may represent constipation. No stomach or bowel distention. PELVIS: APPENDIX: The appendix is not visualized. There is no evidence for appendicitis. BLADDER: Unremarkable. REPRODUCTIVE: Unremarkable as visualized. No mass. ABDOMEN and PELVIS: INTRAPERITONEAL SPACE: Unremarkable. No ascites or other fluid collection. No free air. BONES/JOINTS: There are multilevel degenerative changes in the visualized spine. No suspicious lytic or blastic abnormality. SOFT TISSUES: Unremarkable. No discrete abdominal or pelvic wall hernia. VASCULATURE: There are atherosclerotic calcifications of the abdominal aorta. Abdominal aorta is non-dilated. LYMPH NODES: Unremarkable. No enlarged lymph nodes. CT/Abdomen/Pelvis WITH Contrast IMPRESSION: 1. Inflammatory changes of multiple loops of ileum, which may represent an inflammatory or infectious enteritis. Crohn''s disease would be a consideration. 2. Small hiatal hernia. 3. Moderately prominent colonic feces, which may represent constipation. 4. Previous cholecystectomy. 5. Atherosclerosis. Electronically Signed: Billy Carias MD at 6:33 EDT ,
--- NOTE | 2021-07-24 06:35 | EDS_ITS ---
HPI Narrative Narrative: Patient is an 86-year-old female on Coumadin secondary to history of atrial fibrillation. She states that today she is just kind of felt nauseous and has had poor oral intake. She states that this evening she was able to eat but then around 1230 had bouts of nausea and vomiting. She states she threw up approximately 3-4 times but when she did throw up it was dark and bloody in nature. The patient states that she did not eat or drink anything that should have discolored the emesis. She reports that she still feels slightly nauseous at this time but because she had bouts of hematemesis and is on a blood thinner comes in for evaluation. The patient denies any history of alcohol use/abuse or history of gastric ulcers ROS ROS ED Constitutional Constitutional ED: Reports fever(s); Denies chills ENT ENT ED: Reports sore throat Cardiovascular Cardiovascular: Denies chest pain Respiratory/Chest Respiratory/Chest: Denies cough or dyspnea Gastrointestinal Gastrointestinal: Reports nausea and vomiting; Denies abdominal pain or diarrhea Genitourinary Genitourinary ED: Denies dysuria Musculoskeletal Musculoskeletal: Denies myalgias Integumentary Denies rash Neurologic Neurologic: Denies headache(s) Hematologic/Lymphatic Hematologic/Lymphatic: Reports easy bleeding and easy bruising EXAM Physical Exam Const Vital Signs: 07/24/21 07:37 Pulse Rate 86 Respiratory Rate 16 Blood Pressure 134/46 H Blood Pressure Mean 75 Pulse Ox 92 Oxygen Delivery Method Room Air Positive well nourished, well developed and obese General Appearance ED: well developed Nutritional Appearance: obese HEENT Reports moist mucous membranes HEENT Narrative: There is dark discoloration to the tongue consistent with hematemesis but no airway edema or compromise Eyes PERRL and EOMs intact bilaterally General Eye ED: Negative for pale conjunctiva Neck supple Neck Narrative: No crepitance palpated Resp normal respiratory effort and clear to auscultation bilaterally Cardio regular rate and regular rhythm GI non-distended and no masses GI Narrative: Mild diffuse pain with palpation without voluntary guarding or rigidity no pulsatile mass Auscultation: normoactive bowel sounds Palpation: soft Extremity Extremity Narrative: Trace to +1 pitting edema to the bilateral lower extremities that is equal and symmetric Neuro oriented x3 and CN's II-XII intact bilaterally Sensorium / Orientation: alert Motor Exam: strength 5/5 throughout Psych mental status grossly normal Skin no rashes or lesions noted Skin Narrative: Capillary refill is less than 3 seconds MDM MDM MDM Narrative Medical decision making narrative: Patient presented to the ER normal tensive and only had minimal abdominal discomfort on exam. She reported Coumadin use because of A. fib and did states she had 4 episodes of coffee-ground emesis at home. She was able to bring the fluid in and it was tested and is Gastroccult positive. A basic work-up with CT scan was obtained because of this. The patient's INR slightly supratherapeutic at 3.7 but otherwise her hemoglobin hematocrit are stable and do not require transfusion. The patient had no further bouts of vomiting the ER but with her blood thinner use and hematemesis and advanced age I believe is in her best interest to be monitored to ensure that there is no further breakthrough bleeding. Therefore medicine was contacted and does agree to admit the patient for further evaluation. The case was also discussed with GI and they do agree that it is okay to bring the patient at this time that she can have an EGD if they deem it necessary after their evaluation Lab Data Attestation: I reviewed the patient's lab results. Labs: Laboratory Results - last 24 hr 07/24/21 04:00 Blood Type A POSITIVE Antibody Screen NEGATIVE Discharge Plan Triage ED Provider: Scooby Mobley Dx/Rx/DC Orders Clinical Impression: Hematemesis, Current use of shelter anticoagulation Primary Care Provider: Doyle Swenson Referrals: Doyle Swenson MD [Primary Care Provider] - Disposition Disposition: Acute Care Hospital [facility]
--- NOTE | 2021-07-24 07:49 | NURSING ---
MED SURG EMANUELS HEMATEMESIS
[2021-07-24 07:55] LABS: Lactic Acid 0.7 mmol/L (0.4-1.9)
[2021-07-24 07:56] LABS: AST(SGOT) 31 U/L (15-37); Alanine Aminotransfer ALT/SGPT 21 U/L (13-56); Albumin, Serum 3.4 g/dL (3.2-5.0); Alkaline Phosphatase 59 U/L (45-117); Anion Gap 7 (5-15); BUN 30 mg/dL (7-18); Bilirubin, Direct 0.05 mg/dL (0.00-0.30); Chloride 100 mmol/L (98-107); Creatinine, Serum 1.07 mg/dL (0.55-1.02); EST Glomerular Filtration Rate 52 mL/min (>60); Est Glom Filt Rate - Afr Amer 63 mL/min (>60); Glucose 134 mg/dL (74-106); Lipase 105 U/L (73-393); Potassium 4.6 mmol/L (3.5-5.1); Protein, Total 7.4 g/dL (6.4-8.2); Sodium Level 137 mmol/L (136-145)
[2021-07-24 08:24] LABS: Prothrombin Time (Protime)PT. 35.7 SECONDS (11.7-14.9)
[2021-07-24 08:25] LABS: International Normalized Ratio 3.7; Partial Thromboplast Time 53.1 Seconds (24.1-36.2)
[2021-07-24 08:29] LABS: Absolute Lymphocyte Count 0.65 X10^3/uL (0.83-4.51); Absolute Neutrophil Count 8.9 X10^3/uL (2.0-7.7); Basophil# 0.03 X10^3/uL; Basophil% 0.3 % (0-1); Eosinophil# 0.04 X10^3/uL; Eosinophils% 0.4 % (0-5); Hematocrit 37.4 % (37-47); Lymphocyte # 0.65 X10^3/ul (0.83-4.51); Lymphocyte % 6.1 % (19-41); Mean Corp Hgb Conc 32.1 g/dL (32-36); Mean Corpuscular Hgb 29.6 pg (27.0-32.0); Mean Corpuscular Volume 92.3 fL (81-99); Mean Platelet Vol. 10.4 fl (6.2-12.0); Monocyte# 0.91 X10^3/uL; Monocyte% 8.6 % (0-10); NRBC Flagged by Analyzer 0 % (0-5); Neutrophil # 8.93 X10^3/uL (2.7-7.7); Neutrophil % 84.3 % (47-70); Platelet Count 309 K/mm3 (150-450); RBC Distribution Width CV 13.8 % (11.6-14.6); Red Blood Count 4.05 M/mm3 (4.2-5.4); White Blood Count 10.6 K/mm3 (4.4-11.0)
[2021-07-24] MEDS: Acetaminophen 325 MG Tablet 650 MG PO ×2 (09:47→23:52)
[2021-07-24] MEDS: 0.9% Normal Saline 1,000 ML 75 ML IV ×2 (09:47→20:05)
--- NOTE | 2021-07-24 11:14 | HP.PCM.HOS_ITS ---
HPI - General General Date of Admission: 07/24/21 HPI Narrative JOYCE SOLOMON, is a 86 F who presents to the hospital after multiple episodes of hematemesis. She states that yesterday evening around dinnertime she started feeling a little bit nauseated and then at around 11 PM she had a first episode of emesis. She noticed that it was a little bit bloody and almost look like coffee grounds. She is never had this before but she does have an elevated INR secondary to being on Coumadin for A. fib. She presented to the ER and her vital signs were stable and her hemoglobin was unremarkable, they did obtain a CT of the abdomen and pelvis which demonstrated inflammatory changes of multiple loops of ileum which may represent inflammatory or infectious enteritis. The ED did discuss the case with gastroenterology and started her on PPI. [facility] Medical History Arthritis Atrial fibrillation Bleeding tendency Community acquired pneumonia CPAP (continuous positive airway pressure) dependence Difficulty balancing Essential (primary) hypertension Fatigue Hiatal hernia History of stress test HTN (hypertension) Hypertensive emergency Incomplete right bundle branch block Limb weakness Migraines Multiple fractures of ribs, left side, initial encounter for closed fracture New onset a-fib Obesity Obstructive sleep apnea Paroxysmal atrial fibrillation Pneumonia Pulmonary hypertension Restless legs Scarlet fever Secondary pulmonary arterial hypertension Shoulder pain Sleep apnea Thyroid disease Home Medications calcium carbonate-vitamin D3 1 tab PO BID 02/26/13 [History Last Taken 03/17/18] aspirin 81 mg PO DAILY@0800 #60 tab 07/29/13 [Rx Last Taken 03/18/18] cholecalciferol (vitamin D3) 1,000 unit PO DAILY 12/25/16 [History Last Taken 03/18/18] acetaminophen 1,000 mg PO Q6H PRN 05/18/17 [History Last Taken 03/18/18] losartan 100 mg PO DAILY 03/18/18 [History Last Taken 03/18/18] atenolol 25 mg tablet 25 mg PO DAILY tab 01/19/19 [History Last Taken Unknown] denosumab 60 mg/mL subcutaneous syringe 60 mg SC [id number] 10/08/19 [History Last Taken Unknown] magnesium oxide 400 mg PO DAILY 10/08/19 [History Last Taken Unknown] ropinirole 0.25 mg tablet 0.25 mg PO QHS 10/08/19 [History Last Taken Unknown] atenolol 50 mg tablet 50 mg PO DAILY #90 tab 11/22/19 [Rx Last Taken Unknown] warfarin 3 mg tablet 3 mg PO QMWF 08/04/20 [History Last Taken Unknown] warfarin 4 mg tablet 4 mg PO [id number] tablet 08/04/20 [History Last Taken Unknown] amlodipine 5 mg tablet 5 mg PO DAILY tab 05/01/21 [History Last Taken Unknown] furosemide 40 mg tablet 40 mg PO DAILY 05/01/21 [History Last Taken Unknown] acetaminophen 1,000 mg PO Q6H PRN 07/24/21 [History Last Taken Unknown] amlodipine 5 mg PO DAILY 07/24/21 [History Last Taken Unknown] aspirin [Ecotrin Low Strength] 81 mg PO DAILY 07/24/21 [History Last Taken Unknown] atenolol 25 mg PO DAILY 07/24/21 [History Last Taken Unknown] atenolol 50 mg PO QHS 07/24/21 [History Last Taken Unknown] calcium carbonate-vitamin D2 [Calcium + Vitamin D] 1 tab PO BID 07/24/21 [Hi story Last Taken Unknown] denosumab [Prolia] 60 mg SUBCUT [id number] 07/24/21 [History Last Taken Unknown] furosemide 20 mg PO DAILY 07/24/21 [History Last Taken Unknown] losartan 100 mg PO DAILY 07/24/21 [History Last Taken Unknown] magnesium oxide 420 mg PO DAILY 07/24/21 [History Last Taken Unknown] ropinirole 0.5 mg PO QHS 07/24/21 [History Last Taken Unknown] warfarin 3 mg PO TUTH 07/24/21 [History Last Taken Unknown] warfarin 4 mg PO SUMOWEFRSA 07/24/21 [History Last Taken Unknown] Allergy/AdvReac Type Severity Reaction Status Date / Time silk Allergy Intermediate itching Verified 07/24/21 10:00 beet [Beet] Allergy Hives Verified 07/24/21 10:00 cantaloupe Allergy Food Verified 07/24/21 10:00 Allergy levofloxacin [From Levaquin] Allergy Unknown Verified 07/24/21 10:00 Penicillins Allergy Unknown Verified 07/24/21 10:00 tomato Allergy Food Verified 07/24/21 10:00 Allergy wheat Allergy Hives Verified 07/24/21 10:00 gabapentin [From Neurontin] AdvReac Other Verified 07/24/21 10:00 meloxicam [From Mobic] AdvReac Other Verified 07/24/21 10:00 oxycodone [From OxyIR] AdvReac Nausea Verified 07/24/21 10:00 risedronate sodium AdvReac Other Verified 07/24/21 10:00 [From Actonel] CANTALOPE Allergy Hives Uncoded 07/24/21 10:00 CONCENTRATES Allergy Hives Uncoded 07/24/21 10:00 EGGPLANT Allergy Hives Uncoded 07/24/21 10:00 MOLD Allergy Unknown Uncoded 07/24/21 10:00 PROCESSED FOODS Allergy Hives Uncoded 07/24/21 10:00 Family History (Updated 07/24/21 @ 11:[address] Hood Maza MD) Other Cancer Diabetes Heart disease Surgical History H/O partial thyroidectomy History of appendectomy History of cholecystectomy History of parathyroidectomy History of thymectomy History of thyroid surgery History of tonsillectomy Hx of appendectomy Hx of bilateral cataract extraction Hx of cholecystectomy Hx of tonsillectomy Social History Smoking Status: Never smoker alcohol intake: never substance use type: does not use ROS Constitutional Constitutional: Denies chills, fatigue, fever(s) or malaise Eyes Eyes: Denies blurry vision ENT HEENT: Denies headache(s) or nasal discharge Cardiovascular Cardiovascular: Denies chest pain, dyspnea on exertion or syncope Respiratory/Chest Respiratory/Chest: Denies cough, shortness of breath at rest or shortness of breath with exertion Gastrointestinal Gastrointestinal: Reports hematemesis, nausea and vomiting; Denies constipation or diarrhea Genitourinary Genitourinary: Denies dysuria Neurologic Neurologic: Denies focal weakness, numbness or tremor(s) Psychiatric Psychiatric: Denies anxiety or depression Vital Signs Vital Signs Vital Signs: 07/24/21 07:37 07/24/21 09:55 07/24/21 10:00 Temperature 98.8 F Temperature Source Oral Pulse Rate 86 82 Pulse Strength Normal (2+) Respiratory Rate 16 14 Blood Pressure 134/46 H 156/57 H Blood Pressure Mean 75 90 Blood Pressure Source Monitor Blood Pressure Position Semi-Fowlers Blood Pressure Location Right Forearm Pulse Ox 92 95 Oxygen Delivery Method Room Air Room Air Weight Weight: 175 lb 7.807 oz Body Mass Index (BMI) 33.1 Physical Exam Const alert, oriented x3 and no apparent distress General Appearance: cooperative HEENT normocephalic and moist oral mucous membranes Eyes PERRL, EOMs intact bilaterally and conjunctivae normal Neck supple and no JVD Resp normal respiratory effort, no retractions, no use of accessory muscles and clear to auscultation bilaterally Auscultation: Negative for crackles, rales, rhonchi or wheezes Cardio regular rate, regular rhythm, S1 normal heart sound, S2 normal heart sound and no murmurs GI soft to palpation, non-tender and non-distended; Negative for hepatosplenomegaly Extremity no clubbing, cyanosis or edema Skin no rashes or lesions noted Neuro no focal motor deficits and no sensory deficits noted Psych affect normal Appearance: appropriate Results Lab / Micro Data Result Diagrams: 07/24/21 04:06 07/24/21 04:06 Labs: Laboratory Results - last 24 hr 07/24/21 04:00: Blood Type A POSITIVE, Antibody Screen NEGATIVE 07/24/21 04:06: Lactic Acid 0.7 07/24/21 04:06: Sodium 137, Potassium 4.6, Chloride 100, Carbon Dioxide 30.0, Anion Gap 7, BUN 30 H, Creatinine 1.07 H, Est GFR (MDRD) Af Amer 63, Est GFR (MDRD) Non-Af 52 L, BUN/Creatinine Ratio 28.0 H, Glucose 134 H, Calcium 9.0, Total Bilirubin 0.40, Direct Bilirubin 0.05, AST 31, ALT 21, Alkaline P hosphatase 59, Total Protein 7.4, Albumin 3.4, Globulin 4.0, Lipase 105 07/24/21 04:06: WBC 10.6, RBC 4.05 L, Hgb 12.0, Hct 37.4, MCV 92.3, MCH 29.6, MCHC 32.1, RDW Std Deviation 47.0 H, RDW Coeff of Tiffani 13.8, Plt Count 309, MPV 10.4, Immature Gran % (Auto) 0.300, Neut % (Auto) 84.3 H, Lymph % (Auto) 6.1 L, Gilmer % (Auto) 8.6, Eos % (Auto) 0.4, Baso % (Auto) 0.3, Absolute Neuts (auto) 8.9 H, Absolute Lymphs (auto) 0.65 L, Nucleated RBC % 0 07/24/21 04:06: PT 35.7 H, INR 3.7, APTT 53.1 H Micro: Microbiology 07/24/21 04:06 Vomitus Gastric Occult Blood - Final Occult Blood Positive Radiology Impression Abdomen/Pelvis CT 07/24/21 05:29 IMPRESSION: 1. Inflammatory changes of multiple loops of ileum, which may represent an inflammatory or infectious enteritis. Crohn''s disease would be a consideration. 2. Small hiatal hernia. 3. Moderately prominent colonic feces, which may represent constipation. 4. Previous cholecystectomy. 5. Atherosclerosis. Electronically Signed: Billy Carias MD at 6:33 EDT Reading Location ID and State: [facility] / [place] , Service support , Assessment & Plan Assessment/Plan (1) Hematemesis: PLAN: 1. Hematemesis ?This is complicated by an elevated INR to 3.7 secondary to Coumadin use for A. fib ?Will not actively reverse, will hold her Coumadin ?Continue with IV fluids and will make n.p.o. ?Consult gastroenterology for possible EGD ?No further episodes of emesis while here 2. A. fib/HTN/pulmonary hypertension ?Blood pressures are stable ?He did have an echo in 2019 with an EF of 65% and some mild diastolic dysfunction, she did have an RVSP of 40 mmHg ?We will continue with her home blood pressure medications but will hold her Lasix secondary to being n.p.o. ?Hold Coumadin and monitor INR DVT: SCDs Charges/Coding Visit Charges Inpatient E&M: 26054 Init Hosp L2
--- NOTE | 2021-07-24 14:03 | CHAPLAIN ---
Type of Pastoral Visit _x__ Initial Visit ___ Follow-up Visit ___ On-call Visit ___ General Patient Visit ___ Spiritual Assessment ___ Family Conference ___ Bereavement ___ Rapid Response ___ Code Blue ___ Other (describe below) Pastoral Care Referral From _x__ Patient ___ Family ___ Nurse ___ Physician ___ [employer] Supervisor ___ Spinner Open End ___ Other (describe below) Sacrament/Intervention _x__ Active listening ___ Anointing ___ Caodaism ___ Bereavement ___ Communion _x__ Beth exploration ___ _x__ Life review _x__ Prayer ___ Reconciliation ___ Sacrament of Sick _x__ Supportive presence ___ Wedding ___ Other (describe below) Pastoral Comments patient has had tests and will soon go for a scope; pt describes her health issue and admits to some anxiety about testing and being put to sleep; pt identifies as Taoism and connected to a local oriental orthodox; pt welcomes presence and prayer for support; daughter of pt is with her in the room
--- NOTE | 2021-07-24 15:52 | EX.PCM.CON.G ---
HPI Consult Data Date of Consult: 07/24/21 HPI Narrative HPI Narrative: JOYCE SOLOMON, is a 86 F who presents from home with nausea and vomiting. She has a past medical history of atrial fibrillation on anticoagulation with Coumadin. She also has a history of COPD and obstructive sleep apnea. She was diagnosed previously with a large hiatal hernia. She has been having progressive poor oral intake over the last several days. She does not have any abdominal pain but she has a lot of nausea. She attempted to eat last night but developed worsening nausea and after eating had multiple episodes of vomiting. Initially when she vomited it was food contents and then progressively turned into coffee-ground contents. When the ED she was a bile and nontoxic. She had a pulse of 82, blood pressure 150/70, respiratory rate of 14 and temperature of 98. She was also satting 98% on room air. She takes aspirin 81 mg on a daily basis and atenolol 50 g for her atrial fibrillation. FORMERLY [facility], 1928–1983 Medical History Arthritis Atrial fibrillation Bleeding tendency Community acquired pneumonia CPAP (continuous positive airway pressure) dependence Difficulty balancing Essential (primary) hypertension Fatigue Hiatal hernia History of stress test HTN (hypertension) Hypertensive emergency Incomplete right bundle branch block Limb weakness Migraines Multiple fractures of ribs, left side, initial encounter for closed fracture New onset a-fib Obesity Obstructive sleep apnea Paroxysmal atrial fibrillation Pneumonia Pulmonary hypertension Restless legs Scarlet fever Secondary pulmonary arterial hypertension Shoulder pain Sleep apnea Thyroid disease Home Medications calcium carbonate-vitamin D3 1 tab PO BID 02/26/13 [History Last Taken 03/17/18] aspirin 81 mg PO DAILY@0800 #60 tab 07/29/13 [Rx Last Taken 03/18/18] cholecalciferol (vitamin D3) 1,000 unit PO DAILY 12/25/16 [History Last Taken 03/18/18] acetaminophen 1,000 mg PO Q6H PRN 05/18/17 [History Last Taken 03/18/18] losartan 100 mg PO DAILY 03/18/18 [History Last Taken 03/18/18] atenolol 25 mg tablet 25 mg PO DAILY tab 01/19/19 [History Last Taken Unknown] denosumab 60 mg/mL subcutaneous syringe 60 mg SC [id number] 10/08/19 [History Last Taken Unknown] magnesium oxide 400 mg PO DAILY 10/08/19 [History Last Taken Unknown] ropinirole 0.25 mg tablet 0.25 mg PO QHS 10/08/19 [History Last Taken Unknown] atenolol 50 mg tablet 50 mg PO DAILY #90 tab 11/22/19 [Rx Last Taken Unknown] warfarin 3 mg tablet 3 mg PO QMWF 08/04/20 [History Last Taken Unknown] warfarin 4 mg tablet 4 mg PO QTUTHSASU tablet 08/04/20 [History Last Taken Unknown] amlodipine 5 mg tablet 5 mg PO DAILY tab 05/01/21 [History Last Taken Unknown] furosemide 40 mg tablet 40 mg PO DAILY 05/01/21 [History Last Taken Unknown] acetaminophen 1,000 mg PO Q6H PRN 07/24/21 [History Last Taken Unknown] amlodipine 5 mg PO DAILY 07/24/21 [History Last Taken Unknown] aspirin [Ecotrin Low Strength] 81 mg PO DAILY 07/24/21 [History Last Taken Unknown] atenolol 25 mg PO DAILY 07/24/21 [History Last Taken Unknown] atenolol 50 mg PO QHS 07/24/21 [History Last Taken Unknown] calcium carbonate-vitamin D2 [Calcium + Vitamin D] 1 tab PO BID 07/24/21 [History Last Taken Unknown] denosumab [Prolia] 60 mg SUBCUT [id number] 07/24/21 [History Last Taken Unknown] furosemide 20 mg PO DAILY 07/24/21 [History Last Taken Unknown] losartan 100 mg PO DAILY 07/24/21 [History Last Taken Unknown] magnesium oxide 420 mg PO DAILY 07/24/21 [History Last Taken Unknown] ropinirole 0.5 mg PO QHS 07/24/21 [History Last Taken Unknown] warfarin 3 mg PO TUTH 07/24/21 [History Last Taken Unknown] warfarin 4 mg PO SUMOWEFRSA 07/24/21 [History Last Taken Unknown] Allergy/AdvReac Type Severity Reaction Status Date / Time silk Allergy Intermediate itching Verified 07/24/21 10:00 beet [Beet] Allergy Hives Verified 07/24/21 10:00 cantaloupe Allergy Food Verified 07/24/21 10:00 Allergy levofloxacin [From Levaquin] Allergy Unknown Verified 07/24/21 10:00 Penicillins Allergy Unknown Verified 07/24/21 10:00 tomato Allergy Food Verified 07/24/21 10:00 Allergy wheat Allergy Hives Verified 07/24/21 10:00 gabapentin [From Neurontin] AdvReac Other Verified 07/24/21 10:00 meloxicam [From Mobic] AdvReac Other Verified 07/24/21 10:00 oxycodone [From OxyIR] AdvReac Nausea Verified 07/24/21 10:00 risedronate sodium AdvReac Other Verified 07/24/21 10:00 [From Actonel] CANTALOPE Allergy Hives Uncoded 07/24/21 10:00 CONCENTRATES Allergy Hives Uncoded 07/24/21 10:00 EGGPLANT Allergy Hives Uncoded 07/24/21 10:00 MOLD Allergy Unknown Uncoded 07/24/21 10:00 PROCESSED FOODS Allergy Hives Uncoded 07/24/21 10:00 Family History (Updated 07/24/21 @ 11:[address] Hood Maza MD) Other Cancer Diabetes Heart disease Surgical History H/O partial thyroidectomy History of appendectomy History of cholecystectomy History of parathyroidectomy History of thymectomy History of thyroid surgery History of tonsillectomy Hx of appendectomy Hx of bilateral cataract extraction Hx of cholecystectomy Hx of tonsillectomy Social History Smoking Status: Never smoker alcohol intake: never substance use type: does not use ROS Gastrointestinal Gastrointestinal: Reports hematemesis, nausea and vomiting Physical Exam Const alert General Appearance: cooperative Orientation / Consciousness: oriented to person HEENT hearing grossly normal bilaterally Head and Scalp: normal to inspection Face and Sinus: face symmetric Nose: external nose normal Mouth: oral and palatal mucosa normal Eyes conjunctivae normal General Eye: normal appearance of both eyes Neck full ROM General: normal visual inspection Lymph Lymphatic: no lymphadenopathy noted Chest inspection of chest normal and palpation of chest normal Chest: symmetrical chest wall rise Resp normal respiratory effort Effort and Inspection: able to speak in complete sentences Cardio regular rate GI non-distended Percussion: normal to percussion Rectal Exam: deferred Neuro Speech: speech normal Gait (Neuro): normal gait Lab / Micro Data Result Diagrams: 07/24/21 04:06 07/24/21 04:06 Labs: Laboratory Results - last 24 hr 07/24/21 04:00: Blood Type A POSITIVE, Antibody Screen NEGATIVE 07/24/21 04:06: Lactic Acid 0.7 07/24/21 04:06: Sodium 137, Potassium 4.6, Chloride 100, Carbon Dioxide 30.0, Anion Gap 7, BUN 30 H, Creatinine 1.07 H, Est GFR (MDRD) Af Amer 63, Est GFR (MDRD) Non-Af 52 L, BUN/Creatinine Ratio 28.0 H, Glucose 134 H, Calcium 9.0, Total Bilirubin 0.40, Direct Bilirubin 0.05, AST 31, ALT 21, Alkaline Phosphatase 59, Total Protein 7.4, Albumin 3.4, Globulin 4.0, Lipase 105 07/24/21 04:06: WBC 10.6, RBC 4.05 L, Hgb 12.0, Hct 37.4, MCV 92.3, MCH 29.6, MCHC 32.1, RDW Std Deviation 47.0 H, RDW Coeff of Tiffani 13.8, Plt Count 309, MPV 10.4, Immature Gran % (Auto) 0.300, Neut % (Auto) 84.3 H, Lymph % (Auto) 6.1 L, [place] % (Auto) 8.6, Eos % (Auto) 0.4, Baso % (Auto) 0.3, Absolute Neuts (auto) 8.9 H, Absolute Lymphs (auto) 0.65 L, Nucleated RBC % 0 07/24/21 04:06: PT 35.7 H, INR 3.7, APTT 53.1 H Micro: Microbiology 07/24/21 04:06 Vomitus Gastric Occult Blood - Final Occult Blood Positive Radiology Impression Abdomen/Pelvis CT 07/24/21 05:29 IMPRESSION: 1. Inflammatory changes of multiple loops of ileum, which may represent an inflammatory or infectious enteritis. Crohn''s disease would be a consideration. 2. Small hiatal hernia. 3. Moderately prominent colonic feces, which may represent constipation. 4. Previous cholecystectomy. 5. Atherosclerosis. Electronically Signed: Billy Carias MD at 6:33 EDT , Assessment & Plan Assessment/Plan (1) Hematemesis: PLAN: Upper GI bleed possibly secondary to Mila-Chacko tear, Joel's erosions, peptic ulcer disease. We will hold the Coumadin for now. She was given Protonix in the ED. She will undergo an upper endoscopy to evaluate upper GI tract. She was explained alternatives, risk, benefits including not withstanding bleeding, infection, sepsis, perforation, need for emergent surgery . She will have an ASA of 3. (2) Abnormal CT scan: PLAN: Her CT scan does show some inflammatory changes in the distal small bowel possibly consistent with inflammatory bowel disease. She is not examining any lower symptoms such as diarrhea, lower GI bleeding or change in bowel habits. We will get inflammatory markers including ESR, CRP. If the abnormal she needed a small bowel follow-through. Charges/Coding Visit Charges Inpatient E&M: 08267 Init Hosp L2
--- NOTE | 2021-07-24 16:44 | OP.EGD_ITS ---
Patient Name: Marisabel Rosales Procedure Date: 07/24/2021 3:43 PM Date of : 1935 Age: 86 Procedure: Upper GI endoscopy Indications: Hematemesis Providers: Jose Rivera DO Medicines: See the Anesthesia note for documentation of the administered medications Patient Profile: This is an 86 year old female. Refer to note in patient chart for documentation of history and physical. Patient has symptoms of acute vomiting. The symptoms first began 01,. Complications: No immediate complications. Procedure: Pre-Anesthesia Assessment: - Prior to the procedure, a History and Physical was performed, and patient medications and allergies were reviewed. The risks and benefits of the procedure and the sedation options and risks were discussed with the patient. All questions were answered and informed consent was obtained. Patient identification and proposed procedure were verified by the physician in the pre-procedure area. Mental Status Examination: alert and oriented. Airway Examination: normal oropharyngeal airway and neck mobility. Respiratory Examination: clear to auscultation. CV Examination: normal. Prophylactic Antibiotics: The patient does not require prophylactic antibiotics. Prior Anticoagulants: The patient has taken no previous anticoagulant or antiplatelet agents. ASA Grade Assessment: II - A patient with mild systemic disease. After reviewing the risks and benefits, the patient was deemed in satisfactory condition to undergo the procedure. The anesthesia plan was to use moderate sedation / analgesia (conscious sedation). Immediately prior to administration of medications, the patient was re-assessed for adequacy to receive sedatives. The heart rate, respiratory rate, oxygen saturations, blood pressure, adequacy of pulmonary ventilation, and response to care were monitored throughout the procedure. The physical status of the patient was re-assessed after the procedure. After obtaining informed consent, the endoscope was passed under direct vision. Throughout the procedure, the patient's blood pressure, pulse, and oxygen saturations were monitored continuously. The Endoscope was introduced through the mouth, and advanced to the second part of duodenum. The upper GI endoscopy was accomplished without difficulty. The patient tolerated the procedure well. Moderate Sedation: Moderate (conscious) sedation was administered by the endoscopy nurse and supervised by the endoscopist. The patient's oxygen saturation, heart rate, blood pressure and response to care were monitored. Total physician intraservice time was 15 minutes. Scope In: 4:29:24 PM Scope Out: 4:32:56 PM Total Procedure Duration Time 0 hours 3 minutes 32 seconds Findings: There was some seen in the back of her mouth and in the oropharynx. The examined esophagus was normal. The entire examined stomach was normal. The first portion of the duodenum was normal. Impression: - Normal esophagus. - Normal stomach. - Normal first portion of the duodenum. - No specimens collected. Recommendation: -Consider x-ray of the chest and or sinuses or CT scan of the chest - The signs and symptoms of potential delayed complications were discussed with the patient. - Patient has a contact number available for emergencies. - Return to normal activities tomorrow. - Resume previous diet. - Continue present medications. - No repeat upper endoscopy. - Return to GI office PRN. Procedure Code(s): --- Professional --- 09648, Esophagogastroduodenoscopy, flexible, transoral; diagnostic, including collection of specimen(s) by brushing or washing, when performed (separate procedure) 54611, 59, Moderate sedation services provided by the same physician or other qualified health transitional care liaison performing the diagnostic or therapeutic service that the sedation supports, requiring the presence of an independent trained observer to assist in the monitoring of the patient's level of consciousness and physiological status; initial 15 minutes of intraservice time, patient age 5 years or older CPT copyright 2017 [employer]. All rights reserved. The codes documented in this report are preliminary and upon photo tube assembler review may be revised to meet current compliance requirements. Jose Rivera DO 07/24/2021 4:43:22 PM This report has been signed electronically. Number of Addenda: 1 Note Initiated On: 07/24/2021 3:43 PM Addendum Number: 1 Addendum Date: 02/06/2022 6:29:15 AM MAC was used as sedation for this procedure. Jose Rivera DO 02/06/2022 6:29:19 AM This report has been signed electronically.
--- NOTE | 2021-07-24 16:45 | OP.CCLET_ITS ---
02/06/2022 Doyle Swenson [address] [place] [address] Re : Upper GI endoscopy procedure for Marisabel Rosales Dear Dr. Swenson This procedure was performed on Saturday, July 24, 2021. My impressions and recommendations are as follows: Impressions : - Normal esophagus. - Normal stomach. - Normal first portion of the duodenum. - No specimens collected. Recommendations : -Consider x-ray of the chest and or sinuses or CT scan of the chest - The signs and symptoms of potential delayed complications were discussed with the patient. - Patient has a contact number available for emergencies. - Return to normal activities tomorrow. - Resume previous diet. - Continue present medications. - No repeat upper endoscopy. - Return to GI office PRN. My findings are described in the full procedure note, which is enclosed. If I can be of further assistance, please feel free to contact me at . Sincerely, Jose Rivera, 07/24/2021 4:43:22 PM This report has been signed electronically.
[2021-07-24 19:32] LABS: Hematocrit 33.6 % (37-47)
[2021-07-24] MEDS: Pramipexole Di-HCl 0.25 MG Tablet PO (20:04)
--- NOTE | 2021-07-24 22:00 | NURSING ---
LATE ENTRY - 2129 - PT BP 91/39, ACCORDING TO PREVIOUS BP'S, THEY HAVE BEEN RUNNING ON THE LOWER SIDE SINCE PT RETURNED FROM EGD THIS AFTERNOON. ILL HOLD PM METOPROLOL PER D BLAKE THOMAS.
[2021-07-24] MEDS: MELATONIN 3 MG TABLET PO (23:52)
[2021-07-25 02:00] VITALS: BP 148/41; PULSE 71; RESP 18; TEMP 36.6; O2SAT 92
[2021-07-25 06:24] LABS: Absolute Lymphocyte Count 1.76 X10^3/uL (0.83-4.51); Absolute Neutrophil Count 3.3 X10^3/uL (2.0-7.7); Basophil# 0.03 X10^3/uL; Basophil% 0.5 % (0-1); Eosinophil# 0.17 X10^3/uL; Eosinophils% 2.9 % (0-5); Hematocrit 30.7 % (37-47); Hemoglobin 9.5 g/dL (12.0-15.0); Lymphocyte # 1.76 X10^3/ul (0.83-4.51); Lymphocyte % 29.9 % (19-41); Mean Corp Hgb Conc 30.9 g/dL (32-36); Mean Corpuscular Hgb 28.8 pg (27.0-32.0); Mean Platelet Vol. 9.7 fl (6.2-12.0); Monocyte# 0.62 X10^3/uL; Monocyte% 10.5 % (0-10); NRBC Flagged by Analyzer 0 % (0-5); Platelet Count 213 K/mm3 (150-450); RBC Distribution Width CV 14.1 % (11.6-14.6); RBC Distribution Width SD 47.7 fl (35.1-43.9); White Blood Count 5.9 K/mm3 (4.4-11.0)
[2021-07-25 06:35] LABS: Prothrombin Time (Protime)PT. 39.3 SECONDS (11.7-14.9)
[2021-07-25 06:36] LABS: International Normalized Ratio 4.1
[2021-07-25 06:48] LABS: Anion Gap 6 (5-15); BUN 23 mg/dL (7-18); BUN/Creat Ratio 23.7 RATIO (10-20); Calcium,Total 7.6 mg/dL (8.5-10.1); Chloride 106 mmol/L (98-107); Creatinine, Serum 0.97 mg/dL (0.55-1.02); EST Glomerular Filtration Rate 58 mL/min (>60); Est Glom Filt Rate - Afr Amer 70 mL/min (>60); Glucose 92 mg/dL (74-106); Potassium 3.9 mmol/L (3.5-5.1); Sodium Level 139 mmol/L (136-145)
[2021-07-25 07:30] VITALS: BP 169/65; PULSE 60; RESP 16; TEMP 36.8; O2SAT 98
[2021-07-25] MEDS: 0.9% Normal Saline 1,000 ML 75 ML IV (07:43)
[2021-07-25] MEDS: amLODIPine 5 MG Tablet PO (07:44)
[2021-07-25] MEDS: Losartan Potassium 100 MG Tablet PO (07:44)
[2021-07-25] MEDS: Atenolol 25 MG Tablet PO (07:44)
[2021-07-25 07:48] LABS: Erythrocyte Sedimentation Rate 12 mm/hr (0-30)
--- NOTE | 2021-07-25 09:28 | PCM.PN.HOSP ---
Subjective Subjective Doing well, she had her EGD yesterday which showed normal GI anatomy. Will obtain inflammatory markers per recommendations of GI we will also obtain a chest x-ray this morning Objective Data Objective Data Vital Signs: Vital Signs Temp Pulse Resp BP Pulse Ox 98.3 F 60 16 169/65 H 98 07/25/21 07:30 07/25/21 07:30 07/25/21 07:30 07/25/21 07:30 07/25/21 07:30 Oxygen Flow Rate (L/min) 2 Oxygen Delivery Method Nasal Cannula Weight: 175 lb 7.807 oz Body Mass Index (BMI) 33.1 Intake & Output: Intake and Output for Last 24 Hours 07/24/21 07/25/21 07/26/21 03:59 03:59 03:59 Intake Total 2500 / 2500 1086.83 / 1086.83 Output Total 300 / 300 Balance 2200 / 2200 1086.83 / 1086.83 Lab / Micro Data Result Diagrams: 07/25/21 05:55 07/25/21 05:55 Labs: Laboratory Results - last 24 hr 07/24/21 19:24: Hgb 11.0 L, Hct 33.6 L 07/25/21 05:55: WBC 5.9, RBC 3.30 L, Hgb 9.5 L, Hct 30.7 L, MCV 93.0, MCH 28.8, MCHC 30.9 L, RDW Std Deviation 47.7 H, RDW Coeff of Tiffani 14.1, Plt Count 213, MPV 9.7, Immature Gran % (Auto) 0.200, Neut % (Auto) 56.0, Lymph % (Auto) 29.9, [place] % (Auto) 10.5 H, Eos % (Auto) 2.9, Baso % (Auto) 0.5, Absolute Neuts (auto) 3.3, Absolute Lymphs (auto) 1.76, Nucleated RBC % 0 07/25/21 05:55: PT 39.3 H, INR 4.1 H* 07/25/21 05:55: Sodium 139, Potassium 3.9, Chloride 106, Carbon Dioxide 27.0, Anion Gap 6, BUN 23 H, Creatinine 0.97, Estim Creat Clear Calc 32.00, Est GFR (MDRD) Af Amer 70, Est GFR (MDRD) Non-Af 58 L, BUN/Creatinine Ratio 23.7 H, Glucose 92, Calcium 7.6 L 07/25/21 05:55: ESR 12 07/25/21 05:55: C-React Prot Ext Range 67.00 H Micro: Microbiology 07/24/21 04:06 Vomitus Gastric Occult Blood - Final Occult Blood Positive Radiography Diagnostic Testing: Radiology Impression Abdomen/Pelvis CT 07/24/21 05:29 IMPRESSION: 1. Inflammatory changes of multiple loops of ileum, which may represent an inflammatory or infectious enteritis. Crohn''s disease would be a consideration. 2. Small hiatal hernia. 3. Moderately prominent colonic feces, which may represent constipation. 4. Previous cholecystectomy. 5. Atherosclerosis. Electronically Signed: Billy Carias MD at 6:33 EDT , Physical Exam Const alert, oriented x3 and no apparent distress General Appearance: cooperative HEENT normocephalic and moist oral mucous membranes Eyes PERRL, EOMs intact bilaterally and conjunctivae normal Neck supple and no JVD Resp normal respiratory effort, no retractions and no use of accessory muscles Auscultation: crackles right base; Negative for rales, rhonchi or wheezes Cardio regular rate, regular rhythm, S1 normal heart sound, S2 normal heart sound and no murmurs GI soft to palpation, non-tender and non-distended; Negative for hepatosplenomegaly Extremity no clubbing, cyanosis or edema Skin no rashes or lesions noted Neuro no focal motor deficits and no sensory deficits noted Psych affect normal Appearance: appropriate Assessment & Plan Assessment/Plan (1) Hematemesis: PLAN: 1. Hematemesis ?Is elevated to 4.1 today, continue to hold Coumadin ?EGD was negative for source of GI bleed with completely normal anatomy ?GI recommends ESR and CRP which we will obtain as well as a chest x-ray for further evaluation ?Given the crackles on exam, will hold her IV fluids, continue with regular diet ?Hemoglobin is dropped a little bit but this is likely secondary to recalibration of the IV fluids she has received ?Appreciate GI assistance ?No further episodes of emesis while here 2. A. fib/HTN/pulmonary hypertension ?Blood pressures are stable ?He did have an echo in 2020 with an EF of 65% and some mild diastolic dysfunction, she did have an RVSP of 40 mmHg ?We will continue with her home blood pressure medications, and resume her home Lasix ?Hold Coumadin and monitor INR DVT: Supratherapeutic INR Charges/Coding Visit Charges Inpatient E&M: 98520 Subs Hosp L2
--- NOTE | 2021-07-25 09:45 | RAD_ITS ---
INDICATION: Smoker RLL crackles EXAMINATION/TECHNIQUE: X-RAY - XR Chest 2 Views COMPARISON: Chest radiograph from 03/28/2017 FINDINGS: Support devices: None. Chronic emphysematous changes. No focal consolidations, effusions, or sizable pneumothorax. A few scattered stable calcified granulomas. Heart size is stable. Calcifications in the aorta. Stable remote left-sided rib fractures and remote left humeral head deformity. No acute findings in the bones or soft tissues. RAD/Chest PA and Lateral IMPRESSION: No acute findings. Electronically Signed: Smooth Trotter, at 10:39 EDT ,
[2021-07-25] MEDS: Furosemide 20 MG Tablet PO (10:15)
[2021-07-25 14:30] VITALS: BP 112/38; PULSE 67; RESP 16; TEMP 36.9; O2SAT 92
--- NOTE | 2021-07-25 14:30 | PCM.DC ---
Discharge Instructions Diet Discharge Diet: Low fat / Low cholesterol Activity Discharge Activity: Return to Normal Activity Dressing / Incision Call your doctor if you observe: Fever of 101 or Higher, Shortness of breath, Dizziness, Fainting spells, Swelling in the ankles, Chest pain and Increased palpitations (irregular heartbeat) Follow Up Care Test Results: Test results from this visit will be discussed in further detail at your follow-up appointment, if applicable. Discharge Plan Admission Admit Date/Time: 07/24/21 08:47 Attending Provider: Hood Maza Primary Care Provider: Doyle Swenson Discharge Orders/Prescriptions Prescriptions: Continued atenolol 25 mg tablet 25 mg PO DAILY RF: 0 Prolia 60 mg/mL syringe 60 mg SC [id number] RF: 0 ropinirole 0.25 mg tablet 0.25 mg PO QHS RF: 0 magnesium oxide 400 mg magnesium capsule 400 mg PO DAILY RF: 0 amlodipine 5 mg tablet 5 mg PO DAILY RF: 0 calcium carbonate-vitamin D3 1 TAB tablet 1 tab PO BID RF: 0 aspirin 81 MG tablet 81 mg PO DAILY@0800 Qty: 60 RF: 0 cholecalciferol (vitamin D3) 1,000 UNIT capsule 1,000 unit PO DAILY RF: 0 acetaminophen 500 MG tablet 1,000 mg PO Q6H PRN (Reason: Pain) RF: 0 losartan 100 MG tablet 100 mg PO DAILY RF: 0 magnesium oxide 420 mg tablet 420 mg PO DAILY RF: 0 furosemide 20 mg tablet 20 mg PO DAILY RF: 0 calcium carbonate-vitamin D2 600 mg calcium- 200 unit Tablet 1 tab PO BID RF: 0 atenolol 50 mg tablet 50 mg PO DAILY Qty: 90 RF: 3 Held warfarin 4 mg tablet 4 mg PO [id number] RF: 0 Hold Instructions: Resume on 07/30/21. warfarin 3 mg tablet 3 mg PO QMWF RF: 0 Hold Instructions: Resume on 07/30/21. Discontinued furosemide 40 mg tablet 40 mg PO DAILY RF: 0 atenolol 25 mg tablet 25 mg PO DAILY RF: 0 amlodipine 5 mg tablet 5 mg PO DAILY RF: 0 aspirin [Ecotrin Low Strength] 81 mg Tablet,Delayed Release (Dr/Ec) 81 mg PO DAILY RF: 0 acetaminophen 650 mg Tablet 1,000 mg PO Q6H PRN (Reason: Pain) RF: 0 warfarin 4 mg tablet 3 mg PO TUTH RF: 0 warfarin 4 mg tablet 4 mg PO SUMOWEFRSA RF: 0 losartan 100 mg tablet 100 mg PO DAILY RF: 0 atenolol 50 mg tablet 50 mg PO QHS RF: 0 Prolia 60 mg/mL Syringe 60 mg SUBCUT .[id number] RF: 0 ropinirole 0.5 mg tablet 0.5 mg PO QHS RF: 0 Referrals / Follow Up: Doyle Swenson MD [Primary Care Provider] - Within 1 Week FriendJose DO [STAFF PHYSICIAN] - Within 1 Month Disposition Disposition (needs filled in before D/C Order can be placed): Home, Self Care
--- NOTE | 2021-07-25 14:35 | CASEMGMT ---
RN AN VASCULAR TECH CM to room to meet with patient for initial transition planning/care coordination assessment. ALBERT NOLAN introduced self and role at [facility]. Pt voices understanding and consents to assessment at this time. Pt sitting in recliner chair in room in no distress at this time. Pt is A/O at this time and answers all questions appropriately. Care providers, pharmacy, and demographics verified/updated at this time. PCP: Dr Swenson Specialists: Dr Mora--cardiology [facility]erred [facility]acy: [facility] Insurance: Luz BLANK Prescription Benefit: None Living Will/HPOA: Has both LW and HPOA, who is her dtr, Janki, and Rogelio CHRISTINA. LNOK: Janki Sherman. GrandsonRogelio Living Arrangements: Lives alone in [facility]. 2-3 steps to enter w/railing. Independent w/ADL's and IADL's. Transportation: Pt states drives self and states no transportation concerns at this time. DME: States has the following DME: CPAP, medical alert button. Has a walker available, but does not use. Pt states no need for further DME at this time. HHC/SNF: Hx [facility] about 4-5 yrs ago after having rib fx's. Hx HHC after d/c'ing home from [facility]. Denies need for HHC. Pt wishes to return home and states has no concerns with going home. PLAN: Home w/family support and discharge plans in place. Neyda MCGREGOR RN, CM
--- NOTE | 2021-07-25 14:37 | DS.PCM_ITS ---
Providers Date of Admission: 07/24/21 Primary Care Physician: Dr. Doyle Swenson MD Consultations 07/24/21 09:08 Consult: Gastroenterology Routine Consulting Provider: [facility] Reason for Consult: Upper GI bleed EMERGENT Consult: No MD Notified: Yes Date Notified: 07/24/21 Time Notified: 08:50 Method of Notification: Verbal Reason For Visit: UPPER GI BLEED Medications at Discharge Home Medications calcium carbonate-vitamin D3 1 tab PO BID 02/26/13 aspirin 81 mg PO DAILY@0800 #60 tab 07/29/13 cholecalciferol (vitamin D3) 1,000 unit PO DAILY 12/25/16 acetaminophen 1,000 mg PO Q6H PRN 05/18/17 losartan 100 mg PO DAILY 03/18/18 atenolol 25 mg tablet 25 mg PO DAILY tab 01/19/19 denosumab 60 mg/mL subcutaneous syringe 60 mg SC [id number] 10/08/19 magnesium oxide 400 mg PO DAILY 10/08/19 ropinirole 0.25 mg tablet 0.25 mg PO QHS 10/08/19 atenolol 50 mg tablet 50 mg PO DAILY #90 tab 11/22/19 warfarin 3 mg tablet 3 mg PO QMWF 08/04/20 warfarin 4 mg tablet 4 mg PO QTUTHSASU tablet 08/04/20 amlodipine 5 mg tablet 5 mg PO DAILY tab 05/01/21 calcium carbonate-vitamin D2 1 tab PO BID 07/24/21 furosemide 20 mg PO DAILY 07/24/21 magnesium oxide 420 mg PO DAILY 07/24/21 Hospital Course Operations None Procedures EGD Summary of Care Provided Minutes Spent on Discharge: 40 Hospital Course: Per HPI: JOYCE SOLOMON, is a 86 F who presents to the hospital after multiple episo black of hematemesis. She states that yesterday evening around dinnertime she started feeling a little bit nauseated and then at around 11 PM she had a first episode of emesis. She noticed that it was a little bit bloody and almost look like coffee grounds. She is never had this before but she does have an elevated INR secondary to being on Coumadin for A. fib. She presented to the ER and her vital signs were stable and her hemoglobin was unremarkable, they did obtain a CT of the abdomen and pelvis which demonstrated inflammatory changes of multiple loops of ileum which may represent inflammatory or infectious enteritis. The ED did discuss the case with gastroenterology and started her on PPI. Hospital Course: 1. Hematemesis?86-year-old female presented to the hospital after multiple episodes of hematemesis. She had a CT scan on admission which showed some small bowel inflammation consistent with an enteritis. She says that some people around her have been having some nausea vomiting and diarrhea though she denies any diarrhea or significant abdominal pain. Because of the coffee-ground emesis and the fact that the ER tested and it was positive for heme, GI was consulted and they performed an EGD yesterday evening and everything was completely norm al, normal esophagus, normal stomach, and normal duodenum. There is no signs of bleeding or stigmata of bleeding. An ESR was normal but his CRP was elevated in discussion with gastroenterology, they deferred to be able to follow inflammatory markers as an outpatient to help with deciding how much to investigate the thickened small bowel. Chest x-ray was also obtained to see if there is a pulmonary source for the blood however the chest x-ray was completely normal. Anticipation was that she was likely going to be here for 2days with her upper GI bleed however with the completely normal EGD and the fact that she feels great, I discussed with her the possibility for discharge today. She ex pressed understanding of the risk and benefits of going home and would like to go home today. I do recommend follow-up on her INR and holding her Coumadin as her INR supratherapeutic at 4.1. I also do recommend following up with her PCP next week to repeat a CBC as her hemoglobin today was 9.5 down from 11, which I expect to be dilutional given the fact that she was started on IV fluids. 2. Atrial fibrillation, hypertension, pulmonary hypertension all chronic medical conditions which complicate her care. Her home medications were continued where appropriate. I discussed with her holding her Coumadin until given the go ahead by her PCP since her INR is 4.1 today. I discussed with her specifically to get this tested on Friday to continue to monitor. Weight / BMI Weight Weight: 175 lb 7.807 oz Body Mass Index (BMI) 33.1 ABG / Lab / Microbiology Data Result Diagrams: 07/25/21 05:55 07/25/21 05:55 Laboratory: Laboratory Results - last 24 hr 07/24/21 19:24: Hgb 11.0 L, Hct 33.6 L 07/25/21 05:55: WBC 5.9, RBC 3.30 L, Hgb 9.5 L, Hct 30.7 L, MCV 93.0, MCH 28.8, MCHC 30.9 L, RDW Std Deviation 47.7 H, RDW Coeff of Tiffani 14.1, Plt Count 213, MPV 9.7, Immature Gran % (Auto) 0.200, Neut % (Auto) 56.0, Lymph % (Auto) 29.9, [place] % (Auto) 10.5 H, Eos % (Auto) 2.9, Baso % (Auto) 0.5, Absolute Neuts (auto) 3.3, Absolute Lymphs (auto) 1.76, Nucleated RBC % 0 07/25/21 05:55: PT 39.3 H, INR 4.1 H* 07/25/21 05:55: Sodium 139, Potassium 3.9, Chloride 106, Carbon Dioxide 27.0, An ion Gap 6, BUN 23 H, Creatinine 0.97, Estim Creat Clear Calc 32.00, Est GFR ( MDRD) Af Amer 70, Est GFR (MDRD) Non-Af 58 L, BUN/Creatinine Ratio 23.7 H, Glucose 92, Calcium 7.6 L 07/25/21 05:55: ESR 12 07/25/21 05:55: C-React Prot Ext Range 67.00 H Microbiology: Microbiology 07/24/21 04:06 Vomitus Gastric Occult Blood - Final Occult Blood Positive Radiography Diagnostic Testing: Radiology Impression Chest X-Ray 07/25/21 09:45 IMPRESSION: No acute findings. Electronically Signed: Smooth Trotter, at 10:39 EDT , D/C Instructions Discharge Diet: Low fat / Low cholesterol Call your doctor if you observe: Fever of 101 or Higher, Shortness of breath, Dizziness, Fainting spells, Swelling in the ankles, Chest pain and Increased palpitations (irregular heartbeat) Meaningful Use Info Meaningful Use Diagnoses (Choose all that apply): None applicable Discharge Plan Admission Admit Date/Time: 07/24/21 08:47 Attending Provider: Hood Maza Primary Care Provider: Doyle Swenson Discharge Orders/Prescriptions Prescriptions: Continued atenolol 25 mg tablet 25 mg PO DAILY RF: 0 Prolia 60 mg/mL syringe 60 mg SC [id number] RF: 0 ropinirole 0.25 mg tablet 0.25 mg PO QHS RF: 0 magnesium oxide 400 mg magnesium capsule 400 mg PO DAILY RF: 0 amlodipine 5 mg tablet 5 mg PO DAILY RF: 0 calcium carbonate-vitamin D3 1 TAB tablet 1 tab PO BID RF: 0 aspirin 81 MG tablet 81 mg PO DAILY@0800 Qty: 60 RF: 0 cholecalciferol (vitamin D3) 1,000 UNIT capsule 1,000 unit PO DAILY RF: 0 acetaminophen 500 MG tablet 1,000 mg PO Q6H PRN (Reason: Pain) RF: 0 losartan 100 MG tablet 100 mg PO DAILY RF: 0 magnesium oxide 420 mg tablet 420 mg PO DAILY RF: 0 furosemide 20 mg tablet 20 mg PO DAILY RF: 0 calcium carbonate-vitamin D2 600 mg calcium- 200 unit Tablet 1 tab PO BID RF: 0 atenolol 50 mg tablet 50 mg PO DAILY Qty: 90 RF: 3 Held warfarin 4 mg tablet 4 mg PO QTUTHSASU RF: 0 Hold Instructions: Resume on 07/30/21. warfarin 3 mg tablet 3 mg PO QMWF RF: 0 Hold Instructions: Resume on 07/30/21. Discontinued furosemide 40 mg tablet 40 mg PO DAILY RF: 0 atenolol 25 mg tablet 25 mg PO DAILY RF: 0 amlodipine 5 mg tablet 5 mg PO DAILY RF: 0 aspirin [Ecotrin Low Strength] 81 mg Tablet,Delayed Release (Dr/Ec) 81 mg PO DAILY RF: 0 acetaminophen 650 mg Tablet 1,000 mg PO Q6H PRN (Reason: Pain) RF: 0 warfarin 4 mg tablet 3 mg PO TUTH RF: 0 warfarin 4 mg tablet 4 mg PO SUMOWEFRSA RF: 0 losartan 100 mg tablet 100 mg PO DAILY RF: 0 atenolol 50 mg tablet 50 mg PO QHS RF: 0 Prolia 60 mg/mL Syringe 60 mg SUBCUT .[id number] RF: 0 ropinirole 0.5 mg tablet 0.5 mg PO QHS RF: 0 Referrals / Follow Up: Doyle Swenson MD [Primary Care Provider] - Within 1 Week Friend,DO Jose [STAFF PHYSICIAN] - Within 1 Month Disposition Disposition (needs filled in before D/C Order can be placed): Home, Self Care Charges/Coding Visit Charges Inpatient E&M: 88356 Disch Hosp
== END 2021-07-25 17:45 | disposition home or self-care (01) | DRG 378 ==
LOC: ED 08:10 → MS3 09:07
PROVIDERS: Internal Medicine Gastroenterology; Admitting Provider Family Medicine; Emergency Provider Emergency Medicine; PCP Family Medicine; Visit Provider Family Medicine
PROC: 0DJ08ZZ Inspection of Upper Intestinal Tract, Via Natural or Artificial Opening Endoscopic (ICD-10-PCS; CPT 43235; principal; 2021-07-24 15:25)
DX: K92.0 Hematemesis (principal); D68.32 Hemorrhagic disorder due to extrinsic circulating anticoagulants; A09 Infectious gastroenteritis and colitis, unspecified; I27.21 Secondary pulmonary arterial hypertension; J44.9 Chronic obstructive pulmonary disease, unspecified; I48.0 Paroxysmal atrial fibrillation; I10 Essential (primary) hypertension; M19.90 Unspecified osteoarthritis, unspecified site; G47.33 Obstructive sleep apnea (adult) (pediatric); E07.9 Disorder of thyroid, unspecified; R79.1 Abnormal coagulation profile; E66.9 Obesity, unspecified; Z79.01 Long term (current) use of anticoagulants; Z79.82 Long term (current) use of aspirin; Z79.899 Other long term (current) drug therapy
CPT/HCPCS: 36415; 71046; 74177; 80048; 80076; 82271; 83605; 83690; 85014; 85018; 85025; 85610; 85652; 85730; 86140; 86850; 86900; 86901; 96374; 96376; 99285; J7030; Q9967; A4216; J2405; J3490

== ENCOUNTER 2021-07-27 11:45 | Outpatient (CLI) | payer MEDICARE, BC, SELFPAY ==
[2021-07-27 15:10] LABS: Absolute Lymphocyte Count 1.59 X10^3/uL (0.83-4.51); Absolute Neutrophil Count 3.9 X10^3/uL (2.0-7.7); Basophil# 0.04 X10^3/uL; Basophil% 0.6 % (0-1); Eosinophil# 0.23 X10^3/uL; Eosinophils% 3.6 % (0-5); Hematocrit 35.6 % (37-47); Hemoglobin 11.7 g/dL (12.0-15.0); Lymphocyte # 1.59 X10^3/ul (0.83-4.51); Lymphocyte % 24.8 % (19-41); Mean Corp Hgb Conc 32.9 g/dL (32-36); Mean Corpuscular Hgb 30.5 pg (27.0-32.0); Mean Corpuscular Volume 92.7 fL (81-99); Mean Platelet Vol. 10.4 fl (6.2-12.0); Monocyte# 0.62 X10^3/uL; Monocyte% 9.7 % (0-10); NRBC Flagged by Analyzer 0 % (0-5); Neutrophil % 60.7 % (47-70); Platelet Count 280 K/mm3 (150-450); RBC Distribution Width CV 13.8 % (11.6-14.6); RBC Distribution Width SD 46.9 fl (35.1-43.9); Red Blood Count 3.84 M/mm3 (4.2-5.4); White Blood Count 6.4 K/mm3 (4.4-11.0)
[2021-07-27 15:30] LABS: Vitamin D,25 Hydroxy 69.9 ng/mL
[2021-07-30 09:15] LABS: PTHIN 109.8 pg/mL (18.4-80.1)
== END 2021-07-27 23:59 | disposition home or self-care (01) ==
LOC: MTLAB 11:46
PROVIDERS: PCP Family Medicine; Referring Provider Family Medicine; Visit Provider Family Medicine
DX: D64.9 Anemia, unspecified (principal); K52.9 Noninfective gastroenteritis and colitis, unspecified; E83.51 Hypocalcemia
CPT/HCPCS: 36415; 82306; 82330; 83970; 85025; 86140

== ENCOUNTER 2021-08-14 14:05 | Outpatient (CLI) | payer MEDICARE, BC, SELFPAY ==
--- NOTE | 2021-08-14 14:08 | RAD_ITS ---
STUDY: X-RAY - LUMBAR SPINE REASON FOR EXAM: Female, 86 years old. DDD TECHNIQUE: 4 view(s) of the lumbar spine were obtained. Study is limited due to overlying bowel gas. COMPARISON: None FINDINGS: Normal lumbar lordosis. There is no substantial scoliosis. There is a normal alignment of the vertebrae. There is generalized demineralization of the vertebral bodies. There is multi-level degenerative disc disease with multi-level disc space narrowing. The soft tissue structures are unremarkable. RAD/L/S Spine Min 4 Views IMPRESSION: Degenerative change. No visualized acute loss of height or alignment. Electronically Signed: Nevaeh Mayorga MD at 7:38 EDT Reading Location ID and State: [facility] / [place] Tel , Service support ,
== END 2021-08-14 23:59 | disposition home or self-care (01) ==
LOC: MTRAD 14:06
PROVIDERS: PCP Family Medicine; Referring Provider Family Medicine; Visit Provider Family Medicine
DX: M51.36 Other intervertebral disc degeneration, lumbar region (principal)
CPT/HCPCS: 72110

== ENCOUNTER → 2021-09-27 | Outpatient (CLI) | payer MEDICARE, BC, SELFPAY ==
[2021-09-27 16:28] LABS: Ferritin 39 ng/mL (8-252)
== END | disposition home or self-care (01) ==
LOC: MTLAB 11:59
PROVIDERS: PCP Family Medicine; Referring Provider Internal Medicine Pulmonary Disease; Visit Provider Internal Medicine Pulmonary Disease
DX: D64.9 Anemia, unspecified (principal)
CPT/HCPCS: 36415; 82728

== ENCOUNTER → 2021-10-29 | Outpatient (CLI) | payer MEDICARE, BC, SELFPAY ==
--- NOTE | 2021-10-29 09:45 | RAD_ITS ---
INDICATION: abnl CT/ileitis/elevated crp EXAMINATION/TECHNIQUE: Barium oral contrast was administered orally via mouth to the patient. An esophagram and upper GI study was performed. Total Fluoroscopic Time: 16 seconds AND number of Fluoroscopic Images: 17 COMPARISON: CT abdomen and pelvis with contrast from 07/24/2021. Abdomen and pelvis radiograph from 03/20/2018. FINDINGS: Oral contrast administered to the patient. Contrast reaches the cecum after approximately 180 minutes. There is no obstruction. Bowel mucosa is unremarkable. Spot compression images of the ileocecal junction are unremarkable. No other significant findings. RAD/Small Bowel Series Only IMPRESSION: Unremarkable examination as above. Electronically Signed: Smooth Trotter, at 15:54 EDT ,
== END | disposition home or self-care (01) ==
LOC: RAD 09:43
PROVIDERS: PCP Family Medicine; Referring Provider Nurse Practitioner Adult Health; Visit Provider Nurse Practitioner Adult Health
DX: K52.9 Noninfective gastroenteritis and colitis, unspecified (principal); R79.82 Elevated C-reactive protein (CRP)
CPT/HCPCS: 74250

== ENCOUNTER → 2021-12-18 | Outpatient (CLI) | payer MEDICARE, BC, SELFPAY ==
[2021-12-18 15:12] LABS: Erythrocyte Sedimentation Rate 38 mm/hr (0-30)
[2021-12-18 15:17] LABS: Absolute Lymphocyte Count 2.24 X10^3/uL (0.83-4.51); Absolute Neutrophil Count 6.7 X10^3/uL (2.0-7.7); Basophil# 0.07 X10^3/uL; Basophil% 0.7 % (0-1); Eosinophil# 0.17 X10^3/uL; Eosinophils% 1.7 % (0-5); Hematocrit 36.9 % (37-47); Hemoglobin 12.1 g/dL (12.0-15.0); Lymphocyte # 2.24 X10^3/ul (0.83-4.51); Lymphocyte % 22.3 % (19-41); Mean Corp Hgb Conc 32.8 g/dL (32-36); Mean Corpuscular Volume 91.3 fL (81-99); Mean Platelet Vol. 9.7 fl (6.2-12.0); NRBC Flagged by Analyzer 0 % (0-5); Neutrophil # 6.74 X10^3/uL (2.7-7.7); Neutrophil % 66.9 % (47-70); Platelet Count 333 K/mm3 (150-450); RBC Distribution Width CV 13.6 % (11.6-14.6); RBC Distribution Width SD 46.5 fl (35.1-43.9); Red Blood Count 4.04 M/mm3 (4.2-5.4); White Blood Count 10.1 K/mm3 (4.4-11.0)
[2021-12-18 15:38] LABS: Vitamin B12 374 pg/mL (211-911)
[2021-12-18 15:40] LABS: ALB/GLOB Ratio 0.8 RATIO (0.9-2.4); AST(SGOT) 19 U/L (15-37); Alanine Aminotransfer ALT/SGPT 17 U/L (13-56); Albumin, Serum 3.4 g/dL (3.2-5.0); Alkaline Phosphatase 56 U/L (45-117); Anion Gap 5 (5-15); BUN 29 mg/dL (7-18); Calcium,Total 9.5 mg/dL (8.5-10.1); Chloride 102 mmol/L (98-107); Creatinine, Serum 1.16 mg/dL (0.55-1.02); EST Glomerular Filtration Rate 47 mL/min (>60); Est Glom Filt Rate - Afr Amer 57 mL/min (>60); Ferritin 56 ng/mL (8-252); Globulin 4.2 g/dL (2.2-4.2); Glucose 104 mg/dL (74-106); Iron 97 ug/dL (50-170); Potassium 4.4 mmol/L (3.5-5.1); Protein, Total 7.6 g/dL (6.4-8.2); Sodium Level 137 mmol/L (136-145); Thyroid Stim Hormone (TSH) 0.98 uIU/mL (0.358-3.74)
== END | disposition home or self-care (01) ==
LOC: MFPLAB 14:10
PROVIDERS: PCP Family Medicine; Referring Provider Family Medicine; Visit Provider Family Medicine
DX: I48.91 Unspecified atrial fibrillation (principal); R53.83 Other fatigue; E83.51 Hypocalcemia
CPT/HCPCS: 36415; 80053; 82306; 82533; 82607; 82728; 83540; 84443; 85025; 85652

== ENCOUNTER → 2021-12-20 | Outpatient (CLI) | payer MEDICARE, BC, SELFPAY | END | disposition home or self-care (01) | LOC: MFPLAB 08:15 | PROVIDERS: PCP Family Medicine; Referring Provider Family Medicine; Visit Provider Family Medicine | DX: E27.49 Other adrenocortical insufficiency (principal) | CPT/HCPCS: 36415; 82533 ==

== ENCOUNTER → 2022-02-04 | Outpatient (CLI) | payer MEDICARE, BC, SELFPAY ==
--- NOTE | 2022-02-04 17:10 | RAD_ITS ---
STUDY: X-RAY - LUMBAR SPINE REASON FOR EXAM: Female, 86 years old. Pain. Evaluate for arthritis. TECHNIQUE: 4 view(s) of the lumbar spine were obtained. COMPARISON: 08/14/2021. FINDINGS: Marked osteopenia. Normal lumbar lordosis. Mild dextroscoliosis, relatively unchanged. There is a normal alignment of the vertebrae. Diffuse facet sclerosis. Compression deformity of the L3 vertebral body with sclerosis of the superior endplate which may represent a recent injury. Diffuse intervertebral disc space narrowing with small osteophytes. The soft tissue structures are unremarkable. RAD/L/S Spine Min 4 Views IMPRESSION: Osteopenia with diffuse mild lumbosacral spondylosis. Compression deformity of the L3 vertebral body which may be recent, as described. Electronically Signed: Andres Chauhan, at 9:47 EDT ,
== END | disposition home or self-care (01) ==
LOC: MTRAD 16:59
PROVIDERS: PCP Family Medicine; Referring Provider Family Medicine; Visit Provider Family Medicine
DX: M51.36 Other intervertebral disc degeneration, lumbar region (principal)
CPT/HCPCS: 72110

== ENCOUNTER 2022-02-09 16:57 | Inpatient (IN) | payer MEDICARE, BC, SELFPAY ==
[2022-02-09 16:59] VITALS: BP 135/48; PULSE 65; RESP 16; TEMP 36; O2SAT 97; BMI 35.9
--- NOTE | 2022-02-09 17:23 | EDS_ITS ---
HPI History of Present Illness Chief Complaint: Other, Pain/Inj Informant: patient Onset/Context/Timing Onset: Days Context: Gradual Onset Timing: Continuous Quality: Sharp, aching Location: Low back Worsened by: Movement, standing Relieved by: Nothing Narrative Narrative: Patient presents with low back pain that has gotten worse over the past 5 days. Patient states she had x-rays on Friday which showed a compression fracture of her lumbar spine. Patient states her pain is getting progressively worse. Patient states that now she is developing weakness and is unable to stand or bear weight. Patient denies any sensation changes. Patient denies any recent fevers or chills. Patient denies any trauma or injury. [facility] Medical History Abnormal CT scan Arthritis Atrial fibrillation Bleeding tendency Community acquired pneumonia CPAP (continuous positive airway pressure) dependence Difficulty balancing Essential (primary) hypertension Fatigue Hiatal hernia History of stress test HTN (hypertension) Hypertensive emergency Incomplete right bundle branch block Limb weakness Migraines Multiple fractures of ribs, left side, initial encounter for closed fracture New onset a-fib Obesity Obstructive sleep apnea Paroxysmal atrial fibrillation Pneumonia Pulmonary hypertension Restless legs Scarlet fever Secondary pulmonary arterial hypertension Shoulder pain Sleep apnea Thyroid disease Home Medications aspirin 81 mg tablet,delayed release 81 mg PO DAILY@0800 #60 tabs 07/29/13 [Rx Last Taken 03/18/18] cholecalciferol (vitamin D3) 25 mcg (1,000 unit) capsule 1,000 unit PO DAILY 12/25/16 [History Last Taken 03/18/18] losartan 100 mg tablet 100 mg PO DAILY 03/18/18 [History Last Taken 03/18/18] denosumab 60 mg/mL subcutaneous syringe (Prolia) 60 mg subcut [id number] 10/08/19 [History Last Taken Unknown] amlodipine 5 mg tablet 5 mg PO DAILY 05/01/21 [History Last Taken Unknown] calcium carb-ergocalciferol (vit D2) 600 mg calcium-200 unit tablet 1 tab PO BID supplement 07/24/21 [History Last Taken Unknown] magnesium oxide 420 mg tablet 420 mg PO DAILY supplement 07/24/21 [History Last Taken Unknown] ferrous sulfate 325 mg (65 mg iron) tablet 325 mg PO DAILY 11/22/21 [History Last Taken Unknown] acetaminophen 500 mg tablet 500 mg PO Q6H PRN Pain 01/01/22 [History Last Taken Unknown] atenolol 25 mg tablet 25 mg PO QAM 01/01/22 [History Last Taken Unknown] atenolol 50 mg tablet 50 mg PO QPM 01/01/22 [History Last Taken Unknown] furosemide 20 mg tablet 10 mg PO DAILY diuretic 01/01/22 [History Last Taken Unknown] ropinirole 0.5 mg tablet 0.25 mg PO 4X/DAY 01/01/22 [History Last Taken Unknown] warfarin 3 mg tablet 3 mg PO TUTH 01/01/22 [History Last Taken Unknown] warfarin 4 mg tablet 4 mg PO SUMOWEFRSA 01/01/22 [History Last Taken Unknown] docusate sodium 100 mg capsule (Colace) 100 mg PO BID 02/09/22 [History Last Taken Unknown] polyethylene glycol 3350 17 gram oral powder packet (Miralax) 17 g PO DAILY 02/09/22 [History Last Taken Unknown] tramadol 50 mg tablet 50 mg PO BID PRN Severe Pain (Scale Score 7-10) 02/09/22 [History Last Taken Unknown] Allergy/AdvReac Type Severity Reaction Status Date / Time silk Allergy Intermediate itching Verified 01/01/22 14:34 beet [Beet] Allergy Hives Verified 01/01/22 14:34 cantaloupe Allergy Food Verified 01/02/22 14:51 Allergy eggplant Allergy Hives Verified 01/02/22 14:51 levofloxacin [From Levaquin] Allergy Unknown Verified 01/01/22 14:34 mold Allergy NEEDS Verified 01/02/22 14:51 FOLLOW-UP Penicillins Allergy Unknown Verified 01/01/22 14:34 tomato Allergy Food Verified 01/01/22 14:34 Allergy wheat Allergy Hives Verified 01/01/22 14:34 gabapentin [From Neurontin] AdvReac Other Verified 01/01/22 14:34 meloxicam [From Mobic] AdvReac Other Verified 01/01/22 14:34 oxycodone [From OxyIR] AdvReac Nausea Verified 01/01/22 14:34 risedronate sodium AdvReac Other Verified 01/01/22 14:34 [From Actonel] CONCENTRATES Allergy Hives Uncoded 01/01/22 14:34 PROCESSED FOODS Allergy Hives Uncoded 01/01/22 14:34 Family History Other Cancer Diabetes Heart disease Surgical History H/O partial thyroidectomy History of appendectomy History of cholecystectomy History of parathyroidectomy History of thymectomy History of thyroid surgery History of tonsillectomy Hx of appendectomy Hx of bilateral cataract extraction Hx of cholecystectomy Hx of tonsillectomy Social History Smoking Status: Never smoker alcohol intake: never substance use type: does not use caffeine: No ROS ROS ED Constitutional Constitutional ED: Denies chills or fever(s) Eyes Eyes: Denies blurry vision or change in vision ENT ENT ED: Denies rhinorrhea or sore throat Cardiovascular Cardiovascular: Denies chest pain or palpitations Respiratory/Chest Respiratory/Chest: Denies cough or dyspnea Gastrointestinal Gastrointestinal: Denies nausea or vomiting Genitourinary Genitourinary ED: Reports dysuria; Denies hematuria Musculoskeletal Musculoskeletal: Reports back pain; Denies neck pain Integumentary Denies abscess or rash Neurologic Neurologic: Reports weakness; Denies headache(s) Allergic/Immunologic Allergic/Immunologic ED: Denies mouth swelling or urticaria EXAM Physical Exam Const Vital Signs: 02/09/22 16:59 02/09/22 19:43 Temperature 96.8 F L Temperature Source Temporal Pulse Rate 65 68 Respiratory Rate 16 16 Blood Pressure 135/48 H 144/52 H Blood Pressure Mean 77 82 Pulse Ox 97 96 Oxygen Delivery Method Room Air Room Air Positive well nourished and well developed General Appearance ED: well developed and NAD Neck supple and no JVD Neuro oriented x3, CN's II-XII intact bilaterally and no sensory deficits noted Sensorium / Orientation: alert Motor Exam: strength abnormal flexion (Strength is 4/5 in flexion of the hips bilaterally) Psych mental status grossly normal Skin no rashes or lesions noted MDM MDM MDM Narrative Medical decision making narrative: Patient was given a dose of morphine here. CBC was within normal limits. Comprehensive metabolic profile was essentially within normal limits. Urinalysis does not show any evidence of urinary tract infection. I did review her lumbar spine x-rays from 02/04/2022 which showed a compression of L3 which is new compared to previous x-rays. I attempted to ambulate the patient. She was unable to even sit up and get out of bed. Because of this I discussed the options with the patient. She is willing to be admitted to the hospital and go to a half-way until she can care for herself at home. Case was discussed with the hospitalist. He will admit the patient to his service for observation. Patient understands and is agreeable to plan. All questions were answered. Lab Data Attestation: I reviewed the patient's lab results. Labs: Laboratory Results - last 24 hr 02/09/22 02/09/22 02/09/22 18:33 18:33 18:55 WBC 9.1 RBC 4.14 L Hgb 12.3 Hct 39.6 MCV 95.7 MCH 29.7 MCHC 31.1 L RDW Std Deviation 49.4 H RDW Coeff of Tiffani 14.1 Plt Count 385 MPV 9.2 Immature Gran % (Auto) 1.900 H Neut % (Auto) 63.6 Lymph % (Auto) 18.2 L [place] % (Auto) 12.6 H Eos % (Auto) 3.1 Baso % (Auto) 0.6 Absolute Neuts (auto) 5.8 Absolute Lymphs (auto) 1.65 Nucleated RBC % 0 Sodium 136 Potassium 4.8 Chloride 97 L Carbon Dioxide 33.0 H Anion Gap 6 BUN 30 H Creatinine 1.05 H Estim Creat Clear Calc 29.56 Est GFR (MDRD) Af Amer 64 Est GFR (MDRD) Non-Af 53 L BUN/Creatinine Ratio 28.6 H Glucose 111 H Calcium 9.1 Total Bilirubin 0.30 AST 16 ALT 18 Alkaline Phosphatase 62 Total Protein 7.1 Albumin 3.1 L Globulin 4.0 Albumin/Globulin Ratio 0.8 L Urine Color Straw Urine Clarity Clear Urine pH 7.0 Ur Specific [place] 1.005 Urine Protein Negative Urine Glucose (UA) Normal Urine Ketones Negative Urine Occult Blood Negative Urine Nitrite Negative Urine Bilirubin Negative Urine Urobilinogen Normal Ur Leukocyte Esterase Negative Urine RBC 0 SEEN Urine WBC 0 SEEN Ur Squamous Epith Cells 0-5 SEEN Urine Bacteria RARE Urine Mucus 0 SEEN Discharge Plan Dx/Rx/DC Orders Clinical Impression: Intractable low back pain, Unable to ambulate, Debility Disposition Disposition: Acute Care Hospital [facility]
[2022-02-09] MEDS: Morphine 4 MG/ML Syringe IV (17:46)
[2022-02-09 18:39] LABS: Absolute Lymphocyte Count 1.65 X10^3/uL (0.83-4.51); Absolute Neutrophil Count 5.8 X10^3/uL (2.0-7.7); Basophil# 0.05 X10^3/uL; Basophil% 0.6 % (0-1); Eosinophil# 0.28 X10^3/uL; Eosinophils% 3.1 % (0-5); Hematocrit 39.6 % (37-47); Hemoglobin 12.3 g/dL (12.0-15.0); Lymphocyte # 1.65 X10^3/ul (0.83-4.51); Lymphocyte % 18.2 % (19-41); Mean Corp Hgb Conc 31.1 g/dL (32-36); Mean Corpuscular Hgb 29.7 pg (27.0-32.0); Mean Corpuscular Volume 95.7 fL (81-99); Mean Platelet Vol. 9.2 fl (6.2-12.0); Monocyte# 1.14 X10^3/uL; Monocyte% 12.6 % (0-10); NRBC Flagged by Analyzer 0 % (0-5); Neutrophil # 5.76 X10^3/uL (2.7-7.7); Neutrophil % 63.6 % (47-70); Platelet Count 385 K/mm3 (150-450); RBC Distribution Width CV 14.1 % (11.6-14.6); RBC Distribution Width SD 49.4 fl (35.1-43.9); Red Blood Count 4.14 M/mm3 (4.2-5.4); White Blood Count 9.1 K/mm3 (4.4-11.0)
[2022-02-09 18:55] LABS: ALB/GLOB Ratio 0.8 RATIO (0.9-2.4); AST(SGOT) 16 U/L (15-37); Alanine Aminotransfer ALT/SGPT 18 U/L (13-56); Albumin, Serum 3.1 g/dL (3.2-5.0); Alkaline Phosphatase 62 U/L (45-117); Anion Gap 6 (5-15); BUN 30 mg/dL (7-18); BUN/Creat Ratio 28.6 RATIO (10-20); Calcium,Total 9.1 mg/dL (8.5-10.1); Chloride 97 mmol/L (98-107); Creatinine, Serum 1.05 mg/dL (0.55-1.02); EST Glomerular Filtration Rate 53 mL/min (>60); Est Glom Filt Rate - Afr Amer 64 mL/min (>60); Estimated Creatinine Clearance 29.56 ml/min; Glucose 111 mg/dL (74-106); Potassium 4.8 mmol/L (3.5-5.1); Protein, Total 7.1 g/dL (6.4-8.2); Sodium Level 136 mmol/L (136-145)
[2022-02-09 19:00] LABS: Mucous, Urine 0 SEEN /hpf (<or=2+); Red Blood Cells-Urine 0 SEEN /hpf (0-5); White Blood Cells 0 SEEN /hpf (0-5)
[2022-02-09 19:06] LABS: Color, Urine Straw (Yellow); Glucose, Dipstick Normal (Normal); Ketone-Dipstick Negative (Negative); Leukocyte Esterase-Dipstick Negative /ul (Negative); Nitrite-Dipstick Negative (Negative); Occult Blood-Urine Negative /ul (Negative); Protein-Dipstick Negative (Negative); Specific Gravity, Urine 1.005 (1.002-1.030); Urine Bilirubin Dipstick Negative (Negative); Urine Clarity Clear (Clear); Urine Urobilinogen Normal (Normal)
[2022-02-09 19:24] LABS: Bacteria RARE /hpf (None Seen); Squamous Epithelial Cells - UA 0-5 SEEN /hpf (5-10)
[2022-02-09 19:43] VITALS: BP 144/52; PULSE 68; RESP 16; O2SAT 96
--- NOTE | 2022-02-09 20:46 | PCM.HP.STD ---
[facility] - General General Date of Admission: 02/09/22 Date of Service: 02/09/22 Chief Complaint: Lower back pain HPI Narrative JOYCE SOLOMON, is a 86 F with a significant history of diastolic heart failure; atrial fibrillation; and fibromyalgia who presents with worsening excruciating lower back pain that started around June 2021. Because of her back pain patient has been getting cortisone shots at her back and she follows up with Dr. Gardner for a planned cement kyphoplasty in February 15, 2022. She reports that recent imaging of her back showed a compression fracture. Patient described her lower back pain as burning; sharp; and a feeling of her back opening apart. Previously the pain was episodic but now the pain is constant. The pain radiates to her bilateral anterior hip. The pain increases with moving and the pain improves with rest. Because of pain patient could not get up from her chair today (day of presentation). And at the emergency department because of pain patient could not get up from her bed. She was recently prescribed Ultram and also she has been taking Tylenol. However these pain medications has not given her appropriate relief. In June 2021 she had about 2 and half months of outpatient rehabilitation. [facility] Medical History Abnormal CT scan Arthritis Atrial fibrillation Bleeding tendency Community acquired pneumonia CPAP (continuous positive airway pressure) dependence Difficulty balancing Essential (primary) hypertension Fatigue Hiatal hernia History of stress test HTN (hypertension) Hypertensive emergency Incomplete right bundle branch block Limb weakness Migraines Multiple fractures of ribs, left side, initial encounter for closed fracture New onset a-fib Obesity Obstructive sleep apnea Paroxysmal atrial fibrillation Pneumonia Pulmonary hypertension Restless legs Scarlet fever Secondary pulmonary arterial hypertension Shoulder pain Sleep apnea Thyroid disease Home Medications aspirin 81 mg tablet,delayed release 81 mg PO DAILY@0800 #60 tabs 07/29/13 [Rx Last Taken 03/18/18] cholecalciferol (vitamin D3) 25 mcg (1,000 unit) capsule 1,000 unit PO DAILY 12/25/16 [History Last Taken 03/18/18] losartan 100 mg tablet 100 mg PO DAILY 03/18/18 [History Last Taken 03/18/18] denosumab 60 mg/mL subcutaneous syringe (Prolia) 60 mg subcut [id number] 10/08/19 [History Last Taken Unknown] amlodipine 5 mg tablet 5 mg PO DAILY 12/21/21 [History Last Taken Unknown] calcium carb-ergocalciferol (vit D2) 600 mg calcium-200 unit tablet 1 tab PO BID supplement 07/24/21 [History Last Taken Unknown] magnesium oxide 420 mg tablet 420 mg PO DAILY supplement 07/24/21 [History Last Taken Unknown] ferrous sulfate 325 mg (65 mg iron) tablet 325 mg PO DAILY 11/22/21 [History Last Taken Unknown] acetaminophen 500 mg tablet 500 mg PO Q6H PRN Pain 01/01/22 [History Last Taken Unknown] atenolol 25 mg tablet 25 mg PO QAM 01/01/22 [History Last Taken Unknown] atenolol 50 mg tablet 50 mg PO QPM 01/01/22 [History Last Taken Unknown] furosemide 20 mg tablet 10 mg PO DAILY diuretic 01/01/22 [History Last Taken Unknown] ropinirole 0.5 mg tablet 0.25 mg PO 4X/DAY 01/01/22 [History Last Taken Unknown] warfarin 3 mg tablet 3 mg PO TUTH 01/01/22 [History Last Taken Unknown] warfarin 4 mg tablet 4 mg PO SUMOWEFRSA 01/01/22 [History Last Taken Unknown] docusate sodium 100 mg capsule (Colace) 100 mg PO BID 02/09/22 [History Last Taken Unknown] polyethylene glycol 3350 17 gram oral powder packet (Miralax) 17 g PO DAILY 02/09/22 [History Last Taken Unknown] tramadol 50 mg tablet 50 mg PO BID PRN Severe Pain (Scale Score 7-10) 02/09/22 [History Last Taken Unknown] Allergy/AdvReac Type Severity Reaction Status Date / Time silk Allergy Intermediate itching Verified 01/01/22 14:34 beet [Beet] Allergy Hives Verified 01/01/22 14:34 cantaloupe Allergy Food Verified 01/02/22 14:51 Allergy eggplant Allergy Hives Verified 01/02/22 14:51 levofloxacin [From Levaquin] Allergy Unknown Verified 01/01/22 14:34 mold Allergy NEEDS Verified 01/02/22 14:51 FOLLOW-UP Penicillins Allergy Unknown Verified 01/01/22 14:34 tomato Allergy Food Verified 01/01/22 14:34 Allergy wheat Allergy Hives Verified 01/01/22 14:34 gabapentin [From Neurontin] AdvReac Other Verified 01/01/22 14:34 meloxicam [From Mobic] AdvReac Other Verified 01/01/22 14:34 oxycodone [From OxyIR] AdvReac Nausea Verified 01/01/22 14:34 risedronate sodium AdvReac Other Verified 01/01/22 14:34 [From Actonel] CONCENTRATES Allergy Hives Uncoded 01/01/22 14:34 PROCESSED FOODS Allergy Hives Uncoded 01/01/22 14:34 Family History Other Cancer Diabetes Heart disease Surgical History H/O partial thyroidectomy History of appendectomy History of cholecystectomy History of parathyroidectomy History of thymectomy History of thyroid surgery History of tonsillectomy Hx of appendectomy Hx of bilateral cataract extraction Hx of cholecystectomy Hx of tonsillectomy Social History Smoking Status: Never smoker alcohol intake: never substance use type: does not use caffeine: No ROS ROS Narrative Pertinent positives and pertinent negatives as noted in HPI. All other systems were reviewed and are negative Vital Signs Vital Signs Vital Signs: 02/09/22 16:59 02/09/22 19:43 Temperature 96.8 F L Temperature Source Temporal Pulse Rate 65 68 Respiratory Rate 16 16 Blood Pressure 135/48 H 144/52 H Blood Pressure Mean 77 82 Pulse Ox 97 96 Oxygen Delivery Method Room Air Room Air Weight Weight: 86.2 kg Body Mass Index (BMI) 35.9 Physical Exam Narrative Physical exam: General: Well-nourished, well-developed. Head: Normocephalic, atraumatic, no tenderness Eyes: Vision is grossly intact. EOMI ENT, no trauma, moist mucous membranes, no rhinorrhea Neck: Nontender, full range of motion. CVS: Regular rate and rhythm. S1-S2 present. No murmur, gallop or rub. Respiratory : clear to auscultation bilaterally, chest wall nontender, no wheezing Abdomen: Soft, nontender, nondistended, normal bowel sounds, no masses : Deferred Back: Nontender, no CVA tenderness, no midline spinal tenderness. Extremities: Limited range of motion of bilateral legs secondary to pain. Skin: Normal color, no trauma, abrasions Neuro: Alert, oriented, cranial nerves II through XII grossly intact. Psychiatry: Normal mood. Normal affect. Not depressed. Not anxious. Results Lab / Micro Data Result Diagrams: 02/09/22 18:33 02/09/22 18:33 Labs: Laboratory Results - last 24 hr 02/09/22 18:33: WBC 9.1, RBC 4.14 L, Hgb 12.3, Hct 39.6, MCV 95.7, MCH 29.7, MCHC 31.1 L, RDW Std Deviation 49.4 H, RDW Coeff of Tiffani 14.1, Plt Count 385, MPV 9.2, Immature Gran % (Auto) 1.900 H, Neut % (Auto) 63.6, Lymph % (Auto) 18.2 L, Clinch % (Auto) 12.6 H, Eos % (Auto) 3.1, Baso % (Auto) 0.6, Absolute Neuts (auto) 5.8, Absolute Lymphs (auto) 1.65, Nucleated RBC % 0 02/09/22 18:33: Sodium 136, Potassium 4.8, Chloride 97 L, Carbon Dioxide 33.0 H, Anion Gap 6, BUN 30 H, Creatinine 1.05 H, Estim Creat Clear Calc 29.56, Est GFR (MDRD) Af Amer 64, Est GFR (MDRD) Non-Af 53 L, BUN/Creatinine Ratio 28.6 H, Glucose 111 H, Calcium 9.1, Total Bilirubin 0.30, AST 16, ALT 18, Alkaline Phosphatase 62, Total Protein 7.1, Albumin 3.1 L, Globulin 4.0, Albumin/Globulin Ratio 0.8 L 02/09/22 18:55: Urine Color Straw, Urine Clarity Clear, Urine pH 7.0, Ur Specific [place] 1.005, Urine Protein Negative, Urine Glucose (UA) Normal, Urine Ketones Negative, Urine Occult Blood Negative, Urine Nitrite Negative, Urine Bilirubin Negative, Urine Urobilinogen Normal, Ur Leukocyte Esterase Negative, Urine RBC 0 SEEN, Urine WBC 0 SEEN, Ur Squamous Epith Cells 0-5 SEEN, Urine Bacteria RARE, Urine Mucus 0 SEEN Assessment & Plan Assessment/Plan (1) Intractable low back pain: (2) Unable to ambulate: (3) Debility: PLAN: Plan Intractable lower back pain/debility/inability to ambulate Lumbar spine x-ray on 02/04/2022 was visualized and independently interpreted. I agree radiology interpretation of compression deformity of L3 vertebral. Also per radiology lumbar x-ray with osteopenia with diffuse mild lumbosacral spondylosis. PRN Hydrocodone ordered. PT and OT to work with patient for strengthening and balance training. Case management consult for disposition. Atrial fibrillation Stable Her Coumadin is on hold for cement kyphoplasty. She report that her aspirin will also be held on FridayFebruary 12 for kyphoplasty. History of diastolic heart failure Stable Hypertension Blood pressure is stable Home blood pressure medication continued. Trend blood pressure and adjust blood pressure medications. DVT prophylaxis: SCDs ordered Charges/Coding Visit Charges OBSV E&M: 53408 Initial observation care L1
[2022-02-09 21:23] VITALS: BP 138/52; PULSE 78; RESP 16; TEMP 36.9; O2SAT 97
[2022-02-09 21:49] VITALS: BMI 33.5
[2022-02-09 21:57] VITALS: BP 176/63; PULSE 73; RESP 18; TEMP 36.7; O2SAT 98
[2022-02-09] MEDS: MELATONIN 3 MG TABLET PO (22:24)
[2022-02-09] MEDS: Docusate Sodium 100 MG Capsule PO (22:24)
[2022-02-09] MEDS: Pramipexole Di-HCl 0.125 MG Tablet PO (22:24)
[2022-02-09] MEDS: Atenolol 50 MG Tablet PO (22:24)
[2022-02-10] VITALS (8 sets, daily range): BP systolic 110–140; BP diastolic 49–58; PULSE 62–77; RESP 16–20; TEMP 36.5–36.9; O2SAT 92–97
[2022-02-10] MEDS: HYDROcodone Bitartrate/Apap 5/325 Tablet PO ×2 (03:36→12:16)
[2022-02-10 05:12] LABS: Absolute Lymphocyte Count 1.28 X10^3/uL (0.83-4.51); Absolute Neutrophil Count 5.9 X10^3/uL (2.0-7.7); Basophil# 0.05 X10^3/uL; Basophil% 0.6 % (0-1); Eosinophil# 0.35 X10^3/uL; Hematocrit 37.2 % (37-47); Hemoglobin 11.8 g/dL (12.0-15.0); Lymphocyte # 1.28 X10^3/ul (0.83-4.51); Lymphocyte % 14.7 % (19-41); Mean Corp Hgb Conc 31.7 g/dL (32-36); Mean Corpuscular Hgb 29.4 pg (27.0-32.0); Mean Corpuscular Volume 92.5 fL (81-99); Mean Platelet Vol. 9.2 fl (6.2-12.0); Monocyte# 1.02 X10^3/uL; Monocyte% 11.7 % (0-10); NRBC Flagged by Analyzer 0 % (0-5); Neutrophil # 5.89 X10^3/uL (2.7-7.7); Neutrophil % 67.7 % (47-70); Platelet Count 377 K/mm3 (150-450); RBC Distribution Width CV 13.8 % (11.6-14.6); RBC Distribution Width SD 47.7 fl (35.1-43.9); Red Blood Count 4.02 M/mm3 (4.2-5.4); White Blood Count 8.7 K/mm3 (4.4-11.0)
[2022-02-10 05:40] LABS: Anion Gap 6 (5-15); BUN 22 mg/dL (7-18); BUN/Creat Ratio 27.1 RATIO (10-20); Calcium,Total 8.5 mg/dL (8.5-10.1); Chloride 101 mmol/L (98-107); Creatinine, Serum 0.81 mg/dL (0.55-1.02); EST Glomerular Filtration Rate 71 mL/min (>60); Est Glom Filt Rate - Afr Amer 86 mL/min (>60); Estimated Creatinine Clearance 38.32 ml/min; Glucose 96 mg/dL (74-106); Potassium 4.5 mmol/L (3.5-5.1); Sodium Level 139 mmol/L (136-145)
[2022-02-10] MEDS: Aspirin E.C. 81 MG Tablet PO (10:50)
[2022-02-10] MEDS: Calcium Carb/Vitamin D 1 TABLET Tablet PO ×2 (10:50→18:13)
[2022-02-10] MEDS: Cholecalciferol (VIT D3) 25 MCG TABLET (1,000 UNITS) PO (10:50)
[2022-02-10] MEDS: Docusate Sodium 100 MG Capsule PO ×2 (10:52→20:36)
[2022-02-10] MEDS: Furosemide 20 MG Tablet 10 MG PO (10:52)
[2022-02-10] MEDS: Losartan Potassium 100 MG Tablet PO (10:53)
[2022-02-10] MEDS: Magnesium Chloride 64 MG Delay Rel.Tablet 128 MG PO (10:53)
[2022-02-10] MEDS: Pramipexole Di-HCl 0.125 MG Tablet PO ×4 (10:54→20:36)
[2022-02-10] MEDS: Polyethylene Glycol 3350 17 GM PACKET PO (10:54)
[2022-02-10] MEDS: amLODIPine 5 MG Tablet PO (10:54)
[2022-02-10] MEDS: Atenolol 25 MG Tablet PO (10:56)
[2022-02-10] MEDS: Ferrous Sulfate 325 MG Tablet PO (12:17)
--- NOTE | 2022-02-10 15:59 | PN.HOSP_ITS ---
Subjective Subjective Patient was seen and examined today, I briefly talked with her about discharge planning, patient did not know that if she did not improve during her hospitalization as far as her ADLs were concerned that she would have to go to an extended care facility for further rehab services if she is not able to go home. Patient would like to think about this and discuss with transition social worker tomorrow. Patient is due to have a kyphoplasty performed on Friday, she has been off her warfarin since last week. Objective Data Objective Data Vital Signs: Vital Signs Temp Pulse Resp BP Pulse Ox O2 Del Method O2 Flow Rate 98 F 62 18 110/56 L 97 Nasal Cannula 2 02/10/22 09:40 02/10/22 11:00 02/10/22 11:00 02/10/22 09:40 02/10/22 11:23 02/10/22 11:23 02/10/22 11:23 Oxygen Flow Rate (L/min) 2 Oxygen Delivery Method Nasal Cannula Weight: 80.4 kg Body Mass Index (BMI) 33.5 Intake & Output: Intake and Output for Last 24 Hours 02/08/22 02/09/22 02/10/22 23:59 23:59 23:59 Intake Total 360 / 360 Output Total 1500 / 1500 Balance -1140 / -1140 Lab / Micro Data Result Diagrams: 02/10/22 04:50 02/10/22 04:50 Labs: Laboratory Results - last 24 hr 02/09/22 18:33: WBC 9.1, RBC 4.14 L, Hgb 12.3, Hct 39.6, MCV 95.7, MCH 29.7, MCHC 31.1 L, RDW Std Deviation 49.4 H, RDW Coeff of Tiffani 14.1, Plt Count 385, MPV 9.2, Immature Gran % (Auto) 1.900 H, Neut % (Auto) 63.6, Lymph % (Auto) 18.2 L, [place] % (Auto) 12.6 H, Eos % (Auto) 3.1, Baso % (Auto) 0.6, Absolute Neuts (auto) 5.8, Absolute Lymphs (auto) 1.65, Nucleated RBC % 0 02/09/22 18:33: Sodium 136, Potassium 4.8, Chloride 97 L, Carbon Dioxide 33.0 H, Anion Gap 6, BUN 30 H, Creatinine 1.05 H, Estim Creat Clear Calc 29.56, Est GFR (MDRD) Af Amer 64, Est GFR (MDRD) Non-Af 53 L, BUN/Creatinine Ratio 28.6 H, Glucose 111 H, Calcium 9.1, Total Bilirubin 0.30, AST 16, ALT 18, Alkaline Phosphatase 62, Total Protein 7.1, Albumin 3.1 L, Globulin 4.0, Albumin/Globulin Ratio 0.8 L 02/09/22 18:55: Urine Color Straw, Urine Clarity Clear, Urine pH 7.0, Ur Spec ific [place] 1.005, Urine Protein Negative, Urine Glucose (UA) Normal, Urine Ketones Negative, Urine Occult Blood Negative, Urine Nitrite Negative, Urine Bilirubin Negative, Urine Urobilinogen Normal, Ur Leukocyte Esterase Negative, Urine RBC 0 SEEN, Urine WBC 0 SEEN, Ur Squamous Epith Cells 0-5 SEEN, Urine Bacteria RARE, Urine Mucus 0 SEEN 02/10/22 04:50: WBC 8.7, RBC 4.02 L, Hgb 11.8 L, Hct 37.2, MCV 92.5, MCH 29.4, MCHC 31.7 L, RDW Std Deviation 47.7 H, RDW Coeff of Tiffani 13.8, Plt Count 377, MPV 9.2, Immature Gran % (Auto) 1.300 H, Neut % (Auto) 67.7, Lymph % (Auto) 14.7 L, [place] % (Auto) 11.7 H, Eos % (Auto) 4.0, Baso % (Auto) 0.6, Absolute Neuts (auto) 5.9, Absolute Lymphs (auto) 1.28, Nucleated RBC % 0 02/10/22 04:50: Sodium 139, Potassium 4.5, Chloride 101, Carbon Dioxide 32.0, Anion Gap 6, BUN 22 H, Creatinine 0.81, Estim Creat Clear Calc 38.32, Est GFR (MDRD) Af Amer 86, Est GFR (MDRD) Non-Af 71, BUN/Creatinine Ratio 27.1 H, G lucose 96, Calcium 8.5 Physical Exam Const alert, oriented x3 and no apparent distress Constitutional Narrative: Patient appears her stated age General Appearance: cooperative, well kempt and well developed Orientation / Consciousness: awake, oriented to person, oriented to place and oriented to time HEENT normocephalic, head/scalp atraumatic and moist oral mucous membranes Eyes PERRL, EOMs intact bilaterally and conjunctivae normal Neck supple, no JVD, thyroid normal and no carotid bruits General: trachea midline Resp normal respiratory effort, no retractions, no use of accessory muscles and clear to auscultation bilaterally Auscultation: Negative for rales, rhonchi or wheezes Cardio regular rate, regular rhythm, S1 normal heart sound, S2 normal heart sound, no murmurs, no rub and no gallops GI normal to inspection, nondistended, normoactive bowel sounds, soft to palpation, non-tender and non-distended Extremity no clubbing, cyanosis or edema Skin no rashes or lesions noted General Skin Exam: no breakdown Neuro oriented x3, CN's II-XII intact bilaterally, no focal motor deficits and no sensory deficits noted Sensorium / Orientation: awake and alert Speech: speech normal Psych affect normal Assessment & Plan Assessment/Plan (1) Intractable low back pain: PLAN: Plan 1. Intractable back pain secondary to recent L3 compression fracture from severe osteoporosis-patient is currently getting oral Vicodin at this time for pain, I have added IV morphine as needed for pain. PT and OT will continue to see the patient #2 paroxysmal atrial fibrillation-patient appears to be in normal sinus rhythm at the time my examination today, she is off her warfarin due to an upcoming kyphoplasty that is going to be performed on Friday. 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 Patient was made a full admission today due to the fact she will be here 2 midnights in all, again she is undecided whether she wants to go to an extended care facility for short-term rehab services or go home from the hospital. Patient knows that she will not be able to undergo kyphoplasty if she is admitted to a nursing facility in all likelihood. Charges/Coding Visit Charges Inpatient E&M: 89288 Init Hosp L3
[2022-02-10] MEDS: Atenolol 50 MG Tablet PO (20:36)
[2022-02-11 02:00] VITALS: BP 159/52; PULSE 78; RESP 18; TEMP 37; O2SAT 93
[2022-02-11] MEDS: HYDROcodone Bitartrate/Apap 5/325 Tablet PO ×2 (02:01→11:26)
--- NOTE | 2022-02-11 08:04 | PCM.PN.HOSP ---
Subjective Subjective Patient is an 86-year-old lady admitted with intractable low back pain Objective Data Objective Data Vital Signs: Vital Signs Temp Pulse Resp BP Pulse Ox O2 Del Method O2 Flow Rate 98.6 F 78 18 159/52 H 93 Nasal Cannula 2 02/11/22 02:00 02/11/22 02:00 02/11/22 02:00 02/11/22 02:00 02/11/22 02:00 02/11/22 07:40 02/11/22 07:40 Oxygen Flow Rate (L/min) 2 Oxygen Delivery Method Nasal Cannula Weight: 80.4 kg Body Mass Index (BMI) 33.5 Intake & Output: Intake and Output for Last 24 Hours 02/09/22 02/10/22 02/11/22 23:59 23:59 23:59 Intake Total 720 / 720 Output Total 2550 / 2550 200 / 200 Balance -1830 / -1830 -200 / -200 Lab / Micro Data Result Diagrams: 02/11/22 09:03 02/10/22 04:50 Physical Exam Narrative GENERAL: cooperative HEENT: Atraumatic; normocephalic EYES; Anicteric, Normal Conjunctiva NECK; supple, normal thyroid, RESPIRATORY: Diminished to auscultation CARDIOVASCULAR: Regular S1 S2, GI: soft, normoactive bowel sounds, : No Renal angle tenderness; EXTREMITIES: No edema, no clubbing, MUSCULOSKELETAL: no muscle wasting NEURO: Awake; no lateralizing signs. SKIN: No Rash PSYCH; Flat affect Assessment & Plan Assessment/Plan (1) Intractable low back pain: PLAN: Plan Patient is an 86-year-old lady admitted with intractable low back pain 1. Intractable low back pain ? Secondary to recent L3 compression logical fracture as a result of severe osteoporosis patient has been admitted to regular nursing floor for pain management also requested for PT OT eval and treatment 2. Paroxysmal A. fib Rate controlled. On systemic anticoagulation with warfarin target INR for monitoring 3. Hypertension - Blood pressure controlled, home medications continued with dose adjustment as needed 4. Osteoporosis ? Patient is on denosumab as outpatient 5. Vitamin D deficiency ? Discontinue patient's appointment 6. Restless leg syndrome ? Patient is on ropinirole did continue 7. Degenerative joint disease Line?pain management as described above 8. DVT prophylaxis ? Patient already on warfarin Charges/Coding Visit Charges Inpatient E&M: 32727 Subs Hosp L2
[2022-02-11 08:24] VITALS: O2SAT 95
[2022-02-11 09:08] VITALS: BP 142/45; PULSE 67; RESP 18; TEMP 36.7; O2SAT 97
[2022-02-11 09:09] LABS: Absolute Lymphocyte Count 1.85 X10^3/uL (0.83-4.51); Absolute Neutrophil Count 5.7 X10^3/uL (2.0-7.7); Basophil# 0.07 X10^3/uL; Basophil% 0.8 % (0-1); Eosinophil# 0.48 X10^3/uL; Eosinophils% 5.4 % (0-5); Hematocrit 42.7 % (37-47); Hemoglobin 13.2 g/dL (12.0-15.0); Lymphocyte # 1.85 X10^3/ul (0.83-4.51); Lymphocyte % 20.9 % (19-41); Mean Corp Hgb Conc 30.9 g/dL (32-36); Mean Corpuscular Hgb 29.5 pg (27.0-32.0); Mean Corpuscular Volume 95.3 fL (81-99); Mean Platelet Vol. 9.4 fl (6.2-12.0); Monocyte% 6.8 % (0-10); NRBC Flagged by Analyzer 0 % (0-5); Neutrophil # 5.68 X10^3/uL (2.7-7.7); Neutrophil % 64.1 % (47-70); Platelet Count 418 K/mm3 (150-450); RBC Distribution Width CV 13.7 % (11.6-14.6); RBC Distribution Width SD 48.5 fl (35.1-43.9); Red Blood Count 4.48 M/mm3 (4.2-5.4); White Blood Count 8.9 K/mm3 (4.4-11.0)
[2022-02-11] MEDS: Docusate Sodium 100 MG Capsule PO (09:13)
[2022-02-11] MEDS: Magnesium Chloride 64 MG Delay Rel.Tablet 128 MG PO (09:14)
[2022-02-11] MEDS: Furosemide 20 MG Tablet 10 MG PO (09:14)
[2022-02-11] MEDS: Losartan Potassium 100 MG Tablet PO (09:14)
[2022-02-11] MEDS: Aspirin E.C. 81 MG Tablet PO (09:14)
[2022-02-11] MEDS: Calcium Carb/Vitamin D 1 TABLET Tablet PO (09:14)
[2022-02-11] MEDS: amLODIPine 5 MG Tablet PO (09:15)
[2022-02-11] MEDS: Polyethylene Glycol 3350 17 GM PACKET PO (09:15)
[2022-02-11] MEDS: Cholecalciferol (VIT D3) 25 MCG TABLET (1,000 UNITS) PO (09:15)
[2022-02-11] MEDS: Pramipexole Di-HCl 0.125 MG Tablet PO ×2 (09:15→13:26)
[2022-02-11] MEDS: Atenolol 25 MG Tablet PO (09:15)
[2022-02-11 09:22] LABS: International Normalized Ratio 1.2; Prothrombin Time (Protime)PT. 14.6 SECONDS (11.7-14.9)
[2022-02-11 09:48] LABS: Anion Gap 8 (5-15); BUN 26 mg/dL (7-18); Calcium,Total 9.9 mg/dL (8.5-10.1); Chloride 96 mmol/L (98-107); Creatinine, Serum 0.93 mg/dL (0.55-1.02); EST Glomerular Filtration Rate 61 mL/min (>60); Est Glom Filt Rate - Afr Amer 74 mL/min (>60); Estimated Creatinine Clearance 33.37 ml/min; Glucose 136 mg/dL (74-106); Magnesium 2.3 mg/dL (1.6-2.6); Sodium Level 136 mmol/L (136-145)
--- NOTE | 2022-02-11 10:44 | CASEMGMT ---
Social Work SW received phone call from pt niece asking about Medicare Appeal information. Niece stated pt was confused about this paper. SW explained all pt's receive this paper and it explains pt's right to appeal if necessary. SW went to pt room to explain to pt as well. Pt appeared to understand better after explanation. Pt did discuss discharge and stated to this SW that pt felt unsafe returning home on own. SW discussed SNF and short term rehab until pt needed to attend O/P procedure on this Friday. Pt was interested in this and asked about TCU. SW to bring pt a list of SNFs to review. LUIS Cardenas
[2022-02-11] MEDS: Ferrous Sulfate 325 MG Tablet PO (11:31)
[2022-02-11] MEDS: Magnesium Hydroxide 30 ML UDC PO (12:00)
--- NOTE | 2022-02-11 12:36 | PCM.TXEXTCAR ---
Diet Diet Order/Speech Therapy: 02/09/22 21:49 Diet: Cardiac - Heart Healthy Food consistency:: Regular Liquid Consistency:: Regular/Thin Therapies Occupational Therapy: Eval and Treat Speech Therapy: Eval and Treat Problem/Diagnosis (1) Intractable low back pain: Status: Acute Code(s): M54.59 - Other low back pain Plan Patient is an 86-year-old lady admitted with intractable low back pain 1. Intractable low back pain ? Secondary to recent L3 compression logical fracture as a result of severe osteoporosis patient has been admitted to regular nursing floor for pain management also requested for PT OT eval and treatment 2. Paroxysmal A. fib Rate controlled. On systemic anticoagulation with warfarin target INR for monitoring 3. Hypertension - Blood pressure controlled, home medications continued with dose adjustment as needed 4. Osteoporosis ? Patient is on denosumab as outpatient 5. Vitamin D deficiency ? Discontinue patient's appointment 6. Restless leg syndrome ? Patient is on ropinirole did continue 7. Degenerative joint disease Line?pain management as described above 8. DVT prophylaxis ? Patient already on warfarin Allergies/Procedures Done in Hospital Allergies silk Allergy (Intermediate, Verified 01/01/22 14:34) itching beet [Beet] Allergy (Verified 01/01/22 14:34) Hives cantaloupe Allergy (Verified 01/02/22 14:51) Food Allergy HIVES eggplant Allergy (Verified 01/02/22 14:51) Hives levofloxacin [From Levaquin] Allergy (Verified 01/01/22 14:34) Unknown mold Allergy (Verified 01/02/22 14:51) NEEDS FOLLOW-UP Penicillins Allergy (Verified 01/01/22 14:34) Unknown tomato Allergy (Verified 01/01/22 14:34) Food Allergy wheat Allergy (Verified 01/01/22 14:34) Hives gabapentin [From Neurontin] Adverse Reaction (Verified 01/01/22 14:34) Other meloxicam [From Mobic] Adverse Reaction (Verified 01/01/22 14:34) Other oxycodone [From OxyIR] Adverse Reaction (Verified 01/01/22 14:34) Nausea risedronate sodium [From Actonel] Adverse Reaction (Verified 01/01/22 14:34) Other CONCENTRATES Allergy (Uncoded 01/01/22 14:34) Hives PROCESSED FOODS Allergy (Uncoded 01/01/22 14:34) Hives Type of Care/Length of Stay Estimated LOS: Convalescent Care Less Than 30 days Type of Care Needed: Skilled Rehab Potential: Good Prognosis: Good Additional Orders/Day of Discharge Day of Discharge: 02/11/22 Discharge Plan Admission Admit Date/Time: 02/10/22 15:30 Attending Provider: Juan José Evans Primary Care Provider: Doyle Swenson Consulting Providers: Richy Ferguson ; Valerio Abarca Discharge Orders/Prescriptions Prescriptions: New hydrocodone-acetaminophen 5-325 mg Tablet 1 tab PO Q4H PRN PRN (Reason: pain 4-5) 2 Days Qty: 8 0RF melatonin 3 mg Tablet 3 mg PO QHS PRN PRN (Reason: Insomnia) Qty: 0 0RF magnesium hydroxide 400 mg/5 mL Suspension 30 ml PO DAILY PRN (Reason: Constipation) Qty: 0 0RF cyclobenzaprine 5 mg tablet 5 mg PO TID PRN (Reason: muscle spasm) Qty: 20 0RF Continued Prolia 60 mg/mL syringe 60 mg SC [id number] Rx Instructions: due in february amlodipine 5 mg tablet 5 mg PO DAILY ropinirole 0.5 mg tablet 0.25 mg PO 4X/DAY atenolol 25 mg tablet 25 mg PO QAM Label Comments: TAKE 1 TABLET BY MOUTH IN THE MORNING atenolol 50 mg tablet 50 mg PO QPM warfarin 3 mg tablet 3 mg PO TUTH Hold Instructions: Resume on 07/30/21. Rx Instructions: --on hold for a procedure has not taken since february 05 warfarin 4 mg tablet 4 mg PO SUMOWEFRSA Hold Instructions: Resume on 07/30/21. Label Comments: =on hold for a procedure hos not taken since 02/05/22 Rx Instructions: Managed by Dr Swenson ferrous sulfate 325 mg (65 mg iron) tablet 325 mg PO DAILY aspirin 81 MG tablet 81 mg PO DAILY@0800 Qty: 60 0RF Label Comments: [facility] cholecalciferol (vitamin D3) 1,000 UNIT capsule 1,000 unit PO DAILY acetaminophen 500 mg tablet 500 mg PO Q6H PRN (Reason: Pain) losartan 100 MG tablet 100 mg PO DAILY magnesium oxide 420 mg tablet 420 mg PO QHS Label Comments: TAKE 1 TABLET BY MOUTH ONCE DAILY calcium carbonate-vitamin D2 600 mg calcium- 200 unit Tablet 1 tab PO BID furosemide 20 mg tablet 10 mg PO DAILY Label Comments: TAKE 1 TABLET BY MOUTH IN THE MORNING polyethylene glycol 3350 [Miralax] 17 gram Powder In Packet 17 g PO DAILY docusate sodium [Colace] 100 mg Capsule 100 mg PO BID Discontinued tramadol 50 mg Tablet 50 mg PO BID PRN (Reason: Severe Pain (Scale Score 7-10)) Referrals / Follow Up: Wallace Gardner DO [Non-Staff] - 02/15/22 9:00 am (For vertebroplasty) Doyle Swenson MD [Primary Care Provider] - Within 2 Weeks Disposition Disposition (needs filled in before D/C Order can be placed): [facility]
--- NOTE | 2022-02-11 12:45 | PCM.DC.SUM ---
Providers Date of Admission: 02/10/22 Date of Discharge: 02/11/22 Primary Care Physician: Dr. Doyle Swenson MD Reason For Visit: INTRACTABLE LOWER BACK PAIN Diagnosis Discharge Diagnosis (1) Intractable low back pain: Status: Acute Code(s): M54.59 - Other low back pain Plan Patient is an 86-year-old lady admitted with intractable low back pain 1. Intractable low back pain ? Secondary to recent L3 compression logical fracture as a result of severe osteoporosis patient has been admitted to regular nursing floor for pain management also requested for PT OT eval and treatment 2. Paroxysmal A. fib Rate controlled. On systemic anticoagulation with warfarin target INR for monitoring 3. Hypertension - Blood pressure controlled, home medications continued with dose adjustment as needed 4. Osteoporosis ? Patient is on denosumab as outpatient 5. Vitamin D deficiency ? Discontinue patient's appointment 6. Restless leg syndrome ? Patient is on ropinirole did continue 7. Degenerative joint disease Line?pain management as described above 8. DVT prophylaxis ? Patient already on warfarin Medications at Discharge Home Medications aspirin 81 mg tablet,delayed release 81 mg PO DAILY@0800 #60 tabs 07/29/13 cholecalciferol (vitamin D3) 25 mcg (1,000 unit) capsule 1,000 unit PO DAILY supplement 12/25/16 losartan 100 mg tablet 100 mg PO DAILY HTN 03/18/18 denosumab 60 mg/mL subcutaneous syringe (Prolia) 60 mg subcut [id number] osteoporosis 10/08/19 amlodipine 5 mg tablet 5 mg PO DAILY HTN 05/01/21 calcium carb-ergocalciferol (vit D2) 600 mg calcium-200 unit tablet 1 tab PO BID supplement 07/24/21 magnesium oxide 420 mg tablet 420 mg PO QHS supplement 07/24/21 ferrous sulfate 325 mg (65 mg iron) tablet 325 mg PO DAILY supplement 11/22/21 acetaminophen 500 mg tablet 500 mg PO Q6H PRN Pain 01/01/22 atenolol 25 mg tablet 25 mg PO QAM HTN 01/01/22 atenolol 50 mg tablet 50 mg PO QPM HTN 01/01/22 furosemide 20 mg tablet 10 mg PO DAILY diuretic 01/01/22 ropinirole 0.5 mg tablet 0.25 mg PO 4X/DAY restless legs 01/01/22 warfarin 3 mg tablet 3 mg PO TUTH Afib 01/01/22 warfarin 4 mg tablet 4 mg PO SUMOWEFRSA AFIB 01/01/22 docusate sodium 100 mg capsule (Colace) 100 mg PO BID constipation 02/09/22 polyethylene glycol 3350 17 gram oral powder packet (Miralax) 17 g PO DAILY constipation 02/09/22 cyclobenzaprine 5 mg tablet 5 mg PO TID PRN muscle spasm #20 tabs 02/11/22 hydrocodone-acetaminophen 5-325mg 5mg-325mg 1 tab PO Q4H PRN PRN pain 4-5 2 days #8 tabs 02/11/22 magnesium hydroxide 400 mg/5 mL oral suspension 30 ml PO DAILY PRN Constipation #0 mL 02/11/22 melatonin 3 mg tablet 3 mg PO QHS PRN PRN Insomnia #0 tabs 02/11/22 Hospital Course Summary of Care Provided Minutes Spent on Discharge: 35 Physical Exam Narrative GENERAL: cooperative HEENT: Atraumatic; normocephalic EYES; Anicteric, Normal Conjunctiva NECK; supple, normal thyroid, RESPIRATORY: Diminished to auscultation CARDIOVASCULAR: Regular S1 S2, GI: soft, normoactive bowel sounds, : No Renal angle tenderness; EXTREMITIES: No edema, no clubbing, MUSCULOSKELETAL: no muscle wasting NEURO: Awake; no lateralizing signs. SKIN: No Rash PSYCH; Flat affect Weight / BMI Weight Weight: 80.4 kg Body Mass Index (BMI) 33.5 ABG / Lab / Microbiology Data Result Diagrams: 02/11/22 09:03 02/11/22 09:03 Laboratory: Laboratory Results - last 24 hr 02/11/22 09:03: WBC 8.9, RBC 4.48, Hgb 13.2, Hct 42.7, MCV 95.3, MCH 29.5, MCHC 30.9 L, RDW Std Deviation 48.5 H, RDW Coeff of Tiffani 13.7, Plt Count 418, MPV 9.4, Immature Gran % (Auto) 2.000 H, Neut % (Auto) 64.1, Lymph % (Auto) 20.9, [place] % (Auto) 6.8, Eos % (Auto) 5.4 H, Baso % (Auto) 0.8, Absolute Neuts (auto) 5.7, Absolute Lymphs (auto) 1.85, Nucleated RBC % 0 02/11/22 09:03: PT 14.6, INR 1.2 02/11/22 09:03: Sodium 136, Potassium 4.0, Chloride 96 L, Carbon Dioxide 32.0, Anion Gap 8, BUN 26 H, Creatinine 0.93, Estim Creat Clear Calc 33.37, Est GFR (MDRD) Af Amer 74, Est GFR (MDRD) Non-Af 61, BUN/Creatinine Ratio 28.0 H, Glucose 136 H, Calcium 9.9, Magnesium 2.3 D/C Instructions Discharge Diet: No restrictions Discharge Activity: Return to Normal Activity Call your doctor if you observe: Fever of 101 or Higher, Shortness of breath, Fainting spells and Chest pain Meaningful Use Info Meaningful Use Diagnoses (Choose all that apply): None applicable Discharge Plan Admission Admit Date/Time: 02/10/22 15:30 Attending Provider: Juan José Evans Primary Care Provider: Doyle Swenson Consulting Providers: Richy Ferguson ; Valerio Abarca Discharge Orders/Prescriptions Prescriptions: New hydrocodone-acetaminophen 5-325 mg Tablet 1 tab PO Q4H PRN PRN (Reason: pain 4-5) 2 Days Qty: 8 0RF melatonin 3 mg Tablet 3 mg PO QHS PRN PRN (Reason: Insomnia) Qty: 0 0RF magnesium hydroxide 400 mg/5 mL Suspension 30 ml PO DAILY PRN (Reason: Constipation) Qty: 0 0RF cyclobenzaprine 5 mg tablet 5 mg PO TID PRN (Reason: muscle spasm) Qty: 20 0RF Continued Prolia 60 mg/mL syringe 60 mg SC [id number] Rx Instructions: due in february amlodipine 5 mg tablet 5 mg PO DAILY ropinirole 0.5 mg tablet 0.25 mg PO 4X/DAY atenolol 25 mg tablet 25 mg PO QAM Label Comments: TAKE 1 TABLET BY MOUTH IN THE MORNING atenolol 50 mg tablet 50 mg PO QPM warfarin 3 mg tablet 3 mg PO TUTH Hold Instructions: Resume on 07/30/21. Rx Instructions: --on hold for a procedure has not taken since february 05 warfarin 4 mg tablet 4 mg PO SUMOWEFRSA Hold Instructions: Resume on 07/30/21. Label Comments: =on hold for a procedure hos not taken since 02/05/22 Rx Instructions: Managed by Dr Swenson ferrous sulfate 325 mg (65 mg iron) tablet 325 mg PO DAILY aspirin 81 MG tablet 81 mg PO DAILY@0800 Qty: 60 0RF Label Comments: heart health cholecalciferol (vitamin D3) 1,000 UNIT capsule 1,000 unit PO DAILY acetaminophen 500 mg tablet 500 mg PO Q6H PRN (Reason: Pain) losartan 100 MG tablet 100 mg PO DAILY magnesium oxide 420 mg tablet 420 mg PO QHS Label Comments: TAKE 1 TABLET BY MOUTH ONCE DAILY calcium carbonate-vitamin D2 600 mg calcium- 200 unit Tablet 1 tab PO BID furosemide 20 mg tablet 10 mg PO DAILY Label Comments: TAKE 1 TABLET BY MOUTH IN THE MORNING polyethylene glycol 3350 [Miralax] 17 gram Powder In Packet 17 g PO DAILY docusate sodium [Colace] 100 mg Capsule 100 mg PO BID Discontinued tramadol 50 mg Tablet 50 mg PO BID PRN (Reason: Severe Pain (Scale Score 7-10)) Referrals / Follow Up: Wallace Gardner DO [Non-Staff] - 02/15/22 9:00 am (For vertebroplasty) Doyle Swenson MD [Primary Care Provider] - Within 2 Weeks Disposition Disposition (needs filled in before D/C Order can be placed): Long-Term Facility Charges/Coding Visit Charges Inpatient E&M: 71108 Disch Hosp
[2022-02-11 13:24] VITALS: BP 127/62; PULSE 66; RESP 18; TEMP 36.5; O2SAT 91
--- NOTE | 2022-02-11 13:31 | CASEMGMT ---
Social Work SW?to room to meet with patient for initial transition planning/care coordination?assessment.?SW?introduced self and role at [facility].? Pt voices understanding and consents to?assessment?at this time.? Pt resting in bed in no distress at this time.? Pt is A/O at this time and answers all questions appropriately.?? Care providers, pharmacy, and demographics verified/updated at this time. PCP: Hussein Swenson Specialists: Dr. Juan Jose Thomas, Fire Inspector Dr. Francis Hunter, Pain Management Preferred Pharmacy: [facility] Insurance: Medicare A& B Prescription Benefit:?Yes Living Will/HPOA:?Pt reports having LW and HCPOA. Pt names Daughter Janki as her HCPOA. Alternate agent is grandson, Rogelio Gotti. LNOK: Keith Moralez Living Arrangements: Alone, single story home. 3 steps to enter the home with hand rails on both sides. Transportation:?Pt states drives self and states no transportation concerns at this time.? DME: Pt has a raised toilet seat and grab bars in the shower.?Pt denied any further DME needs at this time. ? HHC/SNF: A printed list of SNF providers including quality and resources use date that is consistent with patient's preferred geographical region, medical needs, and insurances network were provided via the [employer] Guide Link.?Pt preferred provider is [facility]. MINNIE sent referral to Liz at [facility]. Liz stated could accept pt as long as pt will not need home med Denosumab while at [facility]. MINNIE checked with pt. Pt reports will not need this med until later this month and confirmed is ok to NOT have this med while at [facility]. Liz at [facility] updated. Pt accepted at [facility]. MINNIE updated Dr. Evans of discharge plan. DR. Evans informed pt medically ready today and can transfer to TCU. PLAN:??TCU, today [facility]
--- NOTE | 2022-02-11 14:18 | CASEMGMT ---
Social Work SW in to validate AD with pt. Pt confirmed has LW and HCPOA. Pt named daughter, Janki Moralez, as agent. Alternate is grandson, Rogelio Gotti. SW informed pt these documents not on file. Pt stated would bring them in when possible. [facility]
--- NOTE | 2022-02-11 14:27 | CASEMGMT ---
Social Work SW faxed discharge orders to TCU. Placed copies on pt chart and sent originals with pt in envelope. SW asked pt if pt would like any family to be updated of transfer to TCU. Pt declined, stated would talk to family on own. Disposition: TCU [facility]
--- NOTE | 2022-02-11 15:33 | CHAPLAIN ---
Type of Pastoral Visit _x__ Initial Visit ___ Follow-up Visit ___ On-call Visit ___ General Patient Visit ___ Spiritual Assessment ___ Family Conference ___ Bereavement ___ Rapid Response ___ Code Blue ___ Other (describe below) Pastoral Care Referral From _x__ Patient ___ Family ___ Nurse ___ Physician ___ Boiler Operators Supervisor ___ Instructor Dancing ___ Other (describe below) Sacrament/Intervention _x__ Active listening ___ Anointing ___ Muslim ___ Bereavement ___ Communion _x__ Beth exploration ___ _x__ Life review _x__ Prayer ___ Reconciliation ___ Sacrament of Sick ___ Supportive presence ___ Wedding ___ Other (describe below) Pastoral Comments patient speaks of her family especially her great grandchildren; pt is member of local [employer]oro[employer] hinduism and finds comfort in her beth; pt admits to pain/discomfort and the planned procedure on her back later this week; pt welcomes presence and prayers
== END 2022-02-11 16:18 | disposition skilled nursing facility (03) | DRG 543 ==
LOC: ED 20:30 → MS3 21:15
PROVIDERS: Admitting Provider Hospitalist; Emergency Provider Emergency Medicine; PCP Family Medicine; Visit Provider Internal Medicine
DX: M80.08XA Age-related osteoporosis with current pathological fracture, vertebra(e), initial encounter for fracture (principal); I50.32 Chronic diastolic (congestive) heart failure; I11.0 Hypertensive heart disease with heart failure; E55.9 Vitamin D deficiency, unspecified; I48.0 Paroxysmal atrial fibrillation; G25.81 Restless legs syndrome; M19.90 Unspecified osteoarthritis, unspecified site; M51.36 Other intervertebral disc degeneration, lumbar region; R53.81 Other malaise; Z79.891 Long term (current) use of opiate analgesic; Z79.82 Long term (current) use of aspirin
CPT/HCPCS: 36415; 80048; 80053; 81001; 83735; 85025; 85610; 87426; 97110; 97162; 97165; 97530; 97535; 99285; A4216

== ENCOUNTER 2022-02-11 16:25 | Inpatient (IN) | payer MEDICARE, BC, SELFPAY ==
[2022-02-11 17:06] VITALS: BP 160/73; PULSE 62; RESP 17; TEMP 36.1; O2SAT 91; BMI 74.1
[2022-02-11] MEDS: Docusate Sodium 100 MG Capsule PO (19:15)
--- NOTE | 2022-02-11 19:27 | NURSING ---
Patient arrive to room 3 TCU at 1630. Patient to receive surgery with Dr. Gardner on 02/15. Coumadin on hold until after surgery.
--- NOTE | 2022-02-11 19:43 | HP.PCM_ITS ---
HPI - General General Date of Admission: 02/11/22 Date of Service: 02/11/22 Chief Complaint: Here for rehab. HPI Narrative 02/09/2022 JOYCE SOLOMON, is a 86 Female who presents to [facility] Emergency Department with low back pain. Worse x 5 days, known compression fracture of lumbar spine. Pain getting progressively worse, weakness, unable to stand or bear weight. Morphine given. CBC okay, CMP okay, Urinalysis okay. X-ray showed L3 compression fracture. Unable to sit up or get out of bed. 02/09/2022 Admit to Hospital. Hydrocodone for back pain. PT/OT for debility. 02/10/2022 Kyphoplasty planned 02/15/[address] Hunter, warfarin on hold. Morphine IV prn back pain. 02/11/2022 Admit to TCU with debility, here for rehabilitation, strengthening, prior to discharge home alone. [facility] Medical History Abnormal CT scan Arthritis Atrial fibrillation Bleeding tendency Community acquired pneumonia CPAP (continuous positive airway pressure) dependence Difficulty balancing Essential (primary) hypertension Fatigue Hiatal hernia History of stress test HTN (hypertension) Hypertensive emergency Incomplete right bundle branch block Limb weakness Migraines Multiple fractures of ribs, left side, initial encounter for closed fracture New onset a-fib Obesity Obstructive sleep apnea Paroxysmal atrial fibrillation Pneumonia Pulmonary hypertension Restless legs Scarlet fever Secondary pulmonary arterial hypertension Shoulder pain Sleep apnea Thyroid disease Home Medications cholecalciferol (vitamin D3) 25 mcg (1,000 unit) capsule 1,000 unit PO DAILY supplement 12/25/16 [History Last Taken 02/09/22] losartan 100 mg tablet 100 mg PO DAILY HTN 03/18/18 [History Last Taken 02/09/22] denosumab 60 mg/mL subcutaneous syringe (Prolia) 60 mg subcut [id number] osteoporosis 10/08/19 [History Last Taken 08/24/21] amlodipine 5 mg tablet 5 mg PO DAILY HTN 05/01/21 [History Last Taken 02/09/22] calcium carb-ergocalciferol (vit D2) 600 mg calcium-200 unit tablet 1 tab PO BID supplement 07/24/21 [History Last Taken 02/09/22] magnesium oxide 420 mg tablet 420 mg PO QHS supplement 07/24/21 [History Last Taken 02/08/22] ferrous sulfate 325 mg (65 mg iron) tablet 325 mg PO DAILY supplement 11/22/21 [History Last Taken 02/09/22] acetaminophen 500 mg tablet 500 mg PO Q6H PRN Pain 01/01/22 [History Last Taken Unknown] atenolol 25 mg tablet 25 mg PO QAM HTN 01/01/22 [History Last Taken 02/09/22] atenolol 50 mg tablet 50 mg PO QPM HTN 01/01/22 [History Last Taken 02/08/22] furosemide 20 mg tablet 10 mg PO DAILY diuretic 01/01/22 [History Last Taken 02/08/22] ropinirole 0.5 mg tablet 0.25 mg PO 4X/DAY restless legs 01/01/22 [History Last Taken 02/09/22] warfarin 3 mg tablet 3 mg PO TUTH Afib 01/01/22 [History Last Taken 02/05/22] warfarin 4 mg tablet 4 mg PO SUMOWEFRSA AFIB 01/01/22 [History Last Taken 02/05/22] docusate sodium 100 mg capsule (Colace) 100 mg PO BID constipation 02/09/22 [History Last Taken Unknown] polyethylene glycol 3350 17 gram oral powder packet (Miralax) 17 g PO DAILY constipation 02/09/22 [History Last Taken 02/08/22] aspirin 81 mg tablet,delayed release 81 mg PO DAILY@0800 heart health 02/11/22 [History Last Taken Unknown] cyclobenzaprine 5 mg tablet 5 mg PO TID PRN muscle spasm #20 tabs 02/11/22 [Rx Last Taken Unknown] hydrocodone-acetaminophen 5-325mg 5mg-325mg 1 tab PO Q4H PRN PRN pain 4-5 2 days #8 tabs 02/11/22 [Rx Last Taken Unknown] magnesium hydroxide 400 mg/5 mL oral suspension 30 ml PO DAILY PRN Constipation #0 mL 02/11/22 [Rx Last Taken Unknown] melatonin 3 mg tablet 3 mg PO QHS PRN PRN Insomnia #0 tabs 02/11/22 [Rx Last Taken Unknown] Allergy/AdvReac Type Severity Reaction Status Date / Time silk Allergy Intermediate itching Verified 01/01/22 14:34 beet [Beet] Allergy Hives Verified 01/01/22 14:34 cantaloupe Allergy Food Verified 01/02/22 14:51 Allergy eggplant Allergy Hives Verified 01/02/22 14:51 levofloxacin [From Levaquin] Allergy Unknown Verified 01/01/22 14:34 mold Allergy NEEDS Verified 01/02/22 14:51 FOLLOW-UP Penicillins Allergy Unknown Verified 01/01/22 14:34 tomato Allergy Food Verified 01/01/22 14:34 Allergy wheat Allergy Hives Verified 01/01/22 14:34 gabapentin [From Neurontin] AdvReac Other Verified 01/01/22 14:34 meloxicam [From Mobic] AdvReac Other Verified 01/01/22 14:34 oxycodone [From OxyIR] AdvReac Nausea Verified 01/01/22 14:34 risedronate sodium AdvReac Other Verified 01/01/22 14:34 [From Actonel] CONCENTRATES Allergy Hives Uncoded 01/01/22 14:34 PROCESSED FOODS Allergy Hives Uncoded 01/01/22 14:34 Family History Other Cancer Diabetes Heart disease Surgical History H/O partial thyroidectomy History of appendectomy History of cholecystectomy History of parathyroidectomy History of thymectomy History of thyroid surgery History of tonsillectomy Hx of appendectomy Hx of bilateral cataract extraction Hx of cholecystectomy Hx of tonsillectomy Social History adopted: No household members: none housing: condominium number of children: 2 financial difficulty paying for basics: not applicable service: No current occupational status: retired current occupational exposures/hazards: No pets and animals: No leisure activities: reading and other history of recent travel: Yes (concert in [place]) Smoking Status: Never smoker alcohol intake: never substance use type: does not use caffeine: No ROS Constitutional Constitutional: Denies chills, fever(s) or weight gain ENT HEENT: Denies headache(s), nasal congestion or nasal discharge Cardiovascular Cardiovascular: Denies chest pain or palpitations Respiratory/Chest Respiratory/Chest: Denies cough, excessive phlegm production or shortness of breath with exertion Gastrointestinal Gastrointestinal: Denies abdominal pain, nausea or vomiting Genitourinary Genitourinary: Denies dysuria Musculoskeletal Musculoskeletal: Reports back pain; Denies joint pain or joint swelling Integumentary Integumentary: Denies rash or wounds Neurologic Neurologic: Denies focal weakness, numbness or tingling Psychiatric Psychiatric: Denies anxiety, auditory hallucinations, depression, homicidal ideation or suicidal ideation Vital Signs Vital Signs Vital Signs: 02/11/22 17:06 02/11/22 17:06 Temperature 97.0 F L Temperature Source Temporal Pulse Rate 62 Pulse Rhythm Regular Pulse Strength Normal (2+) Respiratory Rate 17 Respiratory Effort Normal Non-Labored Respiratory Depth Normal Respiratory Pattern Normal Blood Pressure 160/73 H Blood Pressure Mean 102 Blood Pressure Source Monitor Pulse Ox 91 Oxygen Delivery Method Room Air Room Air Weight Weight: 178 kg Body Mass Index (BMI) 74.1 Physical Exam Const alert General Appearance: cooperative HEENT normocephalic Eyes PERRL and EOMs intact bilaterally Neck supple, no JVD and no carotid bruits Resp normal respiratory effort, normal air movement and clear to auscultation bilaterally Cardio regular rate and regular rhythm GI normal to inspection, nondistended, normoactive bowel sounds, non-tender and non-distended Extremity normal capillary refill General Extremity: Negative for edema Skin no rashes or lesions noted General Skin Exam: no breakdown Psych affect normal Appearance: appropriate Assessment & Plan Assessment/Plan (1) Debility: (2) Intractable low back pain: (3) Compression fracture of L3 vertebra: (4) Atrial fibrillation: (5) Vitamin D deficiency: (6) Hypertension: (7) Osteoporosis: (8) Hypomagnesemia: (9) Iron deficiency anemia: (10) Edema: (11) Restless leg syndrome: PLAN: Plan 86 year old female with below past medical history hospitalized for intractable back pain secondary to L3 compression fracture, planning kyphoplasty 02/15/[address] Hunter, admitted to TCU with debility, here for rehabilitation, strengthening, prior to discharge home alone. * Debility - PT/OT. * Pain - Tylenol 1000mg q6h prn pain (1-3), Hollis 5/325mg 1 tablet q4h prn pain (4-10)> * Bowel - Miralax 17gm daily, senna/colace 2 tablets bid, MOM 30ml daily prn. * Adult immunization - Administer pneumonia vaccine, covid19 vaccine, flu vaccine as appropriate. * DVT prophylaxis - Hold, preparing for kyphoplasty. * Hypertension - Atenolol 25mg am, 50mg pm, Losartan 100mg daily, Amlodipine 5mg daily. * CV prophylaxis - Aspirin 81mg daily. * Calcium deficiency - Calcium D 1 tablet bidcm. * Muscle spasm - Flexeril 5mg tid prn. * Iron deficiency anemia - Ferrous sulfate 325mg daily. * Edema - Furosemide 10mg daily. * Hypomagnesemia - Magnesium chloride 128mg qhs. * Insomnia - Melatonin 3mg qhs prn. * Restless Leg syndrome - Mirapex 0.25mg 4x/day. * Vitamin D deficiency - D3 25mcg daily. * Atrial fibrillation - Atenolol 25mg am, 50mg pm, warfarin held due to upcoming kyphoplasty. * L3 compression fracture - Dr. Hunter kyphoplasty 02/15/2022, hold warfarin.
--- NOTE | 2022-02-11 19:45 | NURSING ---
RT on unit, notified that patient reports home cpap in room and request for respiratory therapist to assess. Per RT will assess this HS
[2022-02-11] MEDS: Magnesium Chloride 64 MG Delay Rel.Tablet 128 MG PO (21:36)
[2022-02-11] MEDS: Pramipexole Di-HCl 0.25 MG Tablet PO (21:36)
[2022-02-11] MEDS: Senna/Docusate Sodium 1 Tablet 2 TABLET PO (21:36)
[2022-02-11] MEDS: Atenolol 50 MG Tablet PO (21:39)
[2022-02-11] MEDS: HYDROcodone Bitartrate/Apap 5/325 Tablet PO (23:40)
[2022-02-12] MEDS: Furosemide 20 MG Tablet 10 MG PO (04:59)
[2022-02-12] MEDS: Losartan Potassium 100 MG Tablet PO (04:59)
[2022-02-12] MEDS: amLODIPine 5 MG Tablet PO (04:59)
[2022-02-12] MEDS: Pramipexole Di-HCl 0.25 MG Tablet PO ×4 (04:59→21:43)
[2022-02-12] MEDS: Senna/Docusate Sodium 1 Tablet 2 TABLET PO ×2 (04:59→16:51)
[2022-02-12] MEDS: Polyethylene Glycol 3350 17 GM PACKET PO (04:59)
[2022-02-12 05:06] VITALS: BP 156/53; PULSE 64; RESP 16
[2022-02-12 05:25] LABS: Absolute Lymphocyte Count 2.02 X10^3/uL (0.83-4.51); Absolute Neutrophil Count 4.3 X10^3/uL (2.0-7.7); Basophil# 0.08 X10^3/uL; Eosinophil# 0.55 X10^3/uL; Eosinophils% 6.8 % (0-5); Hematocrit 38.2 % (37-47); Lymphocyte # 2.02 X10^3/ul (0.83-4.51); Lymphocyte % 25.1 % (19-41); Mean Corp Hgb Conc 31.4 g/dL (32-36); Mean Corpuscular Hgb 29.5 pg (27.0-32.0); Mean Corpuscular Volume 93.9 fL (81-99); Mean Platelet Vol. 9.2 fl (6.2-12.0); Monocyte# 0.82 X10^3/uL; Monocyte% 10.2 % (0-10); NRBC Flagged by Analyzer 0 % (0-5); Neutrophil # 4.34 X10^3/uL (2.7-7.7); Platelet Count 382 K/mm3 (150-450); RBC Distribution Width CV 13.7 % (11.6-14.6); RBC Distribution Width SD 47.6 fl (35.1-43.9); Red Blood Count 4.07 M/mm3 (4.2-5.4)
[2022-02-12] MEDS: 0.9% Saline Lock 10 ML Syringe IV ×2 (05:32→18:31)
[2022-02-12 06:36] LABS: Anion Gap 4 (5-15); BUN 25 mg/dL (7-18); BUN/Creat Ratio 29.8 RATIO (10-20); Calcium,Total 9.5 mg/dL (8.5-10.1); Chloride 96 mmol/L (98-107); Creatinine, Serum 0.84 mg/dL (0.55-1.02); EST Glomerular Filtration Rate 68 mL/min (>60); Est Glom Filt Rate - Afr Amer 83 mL/min (>60); Estimated Creatinine Clearance 36.95 ml/min; Glucose 91 mg/dL (74-106); Potassium 4.7 mmol/L (3.5-5.1); Sodium Level 133 mmol/L (136-145)
[2022-02-12] MEDS: HYDROcodone Bitartrate/Apap 5/325 Tablet PO ×2 (07:55→15:22)
[2022-02-12] MEDS: Calcium Carb/Vitamin D 1 TABLET Tablet PO ×2 (07:57→16:51)
[2022-02-12] MEDS: Ferrous Sulfate 325 MG Tablet PO (07:57)
[2022-02-12] MEDS: Cholecalciferol (VIT D3) 25 MCG TABLET (1,000 UNITS) PO (07:58)
[2022-02-12] MEDS: Atenolol 25 MG Tablet PO (10:14)
[2022-02-12] MEDS: Tuberculin,Purif.prot.deriv. 50 TU/ML Vial 0.1 ML ID (10:16)
[2022-02-12 10:20] VITALS: BP 110/50; PULSE 86
--- NOTE | 2022-02-12 10:29 | CASEMGMT ---
Social Work Met with patient to complete initial assessment. Introduced self and role. Verified/updated contacts. Discussed code status and MOLST form. Pt wishes to be DNR-CCA, no intubation. DNR and MOLST form signed, communicated to nursing, placed in Dr folder. Pt agreed to have dtr provide copies of advanced directives. Educated to Medicare benefit. Encouraged to contact secondary insurance to ensure copay coverage. Pts goal is to return home alone. SW to continue to follow for DC planning. RENO Snell PATTERN DESIGNER
[2022-02-12 10:50] VITALS: PULSE 65; RESP 18; O2SAT 92
[2022-02-12 13:39] VITALS: BP 125/51; PULSE 64; RESP 18; TEMP 36.6; O2SAT 91
--- NOTE | 2022-02-12 14:11 | PCM.PN.DRR ---
TCU RX Drug Regimen Review Subjective: TCU Admission. 86 YOF presented to ER with lower back pain. Hospitalized for intractable back pain secondary to L3 compression fracture, planning kyphoplasty 02/15/[address] Hunter. Admitted to TCU with debility for strengthening and rehabilitation. Objective: Allergies silk Allergy (Intermediate, Verified 01/01/22 14:34) itching beet [Beet] Allergy (Verified 01/01/22 14:34) Hives cantaloupe Allergy (Verified 01/02/22 14:51) Food Allergy HIVES eggplant Allergy (Verified 01/02/22 14:51) Hives levofloxacin [From Levaquin] Allergy (Verified 01/01/22 14:34) Unknown mold Allergy (Verified 01/02/22 14:51) NEEDS FOLLOW-UP Penicillins Allergy (Verified 01/01/22 14:34) Unknown tomato Allergy (Verified 01/01/22 14:34) Food Allergy wheat Allergy (Verified 01/01/22 14:34) Hives gabapentin [From Neurontin] Adverse Reaction (Verified 01/01/22 14:34) Other meloxicam [From Mobic] Adverse Reaction (Verified 01/01/22 14:34) Other oxycodone [From OxyIR] Adverse Reaction (Verified 01/01/22 14:34) Nausea risedronate sodium [From Actonel] Adverse Reaction (Verified 01/01/22 14:34) Other CONCENTRATES Allergy (Uncoded 01/01/22 14:34) Hives PROCESSED FOODS Allergy (Uncoded 01/01/22 14:34) Hives Current Medications Generic Name Dose Route Start Last Admin Trade Name Freq PRN Reason Stop Dose Admin Acetaminophen 500 mg 02/11/22 20:03 Acetaminophen 500 Mg Tablet PO Q6H PRN Pain Score 1-3 Hydrocodone Bitart/Acetaminophen 1 tablet 02/11/22 17:13 02/12/22 07:55 Hydrocodone Bitartrate/Apap 5/325 Tablet PO 1 tablet Q4H PRN PRN Administration pain 4-10 Amlodipine Besylate 5 mg 02/12/22 06:00 02/12/22 04:59 Amlodipine 5 Mg Tablet PO 5 mg DAILY BATSHEVA Administration Atenolol 25 mg 02/12/22 10:00 02/12/22 10:14 Atenolol 25 Mg Tablet PO 25 mg QAM BATSHEVA Administration Atenolol 50 mg 02/11/22 21:00 02/11/22 21:39 Atenolol 50 Mg Tablet PO 50 mg QPM BATSHEVA Administration Calcium/Vitamin D 1 tablet 02/12/22 08:00 02/12/22 07:57 Calcium Carb/Vitamin D 1 Tablet Tablet PO 1 tablet BIDCM [facility] Administration Cholecalciferol 25 mcg 02/12/22 08:00 02/12/22 07:58 Cholecalciferol (Vit D3) 25 Mcg Tablet (1,000 Units) [facility] Administration Cyclobenzaprine HCl 5 mg 02/11/22 17:13 Cyclobenzaprine Hcl 5 Mg Tablet PO TID PRN muscle spasm Ferrous Sulfate 325 mg 02/12/22 08:00 02/12/22 07:57 Ferrous Sulfate 325 Mg Tablet PO 325 mg 0800 BATSHEVA Administration Furosemide 10 mg 02/12/22 06:00 02/12/22 04:59 Furosemide 20 Mg Tablet PO 10 mg DAILY BATSHEVA Administration Losartan Potassium 100 mg 02/12/22 06:00 02/12/22 04:59 Losartan Potassium 100 Mg Tablet PO 100 mg DAILY BATSHEVA Administration Magnesium Chloride 128 mg 02/11/22 22:00 02/11/22 21:36 Magnesium Chloride 64 Mg Delay Rel.Tablet PO 128 mg QHS BATSHEVA Administration Magnesium Hydroxide 30 ml 02/11/22 17:13 Magnesium Hydroxide 30 Ml Udc PO DAILY PRN Constipation Melatonin 3 mg 02/11/22 17:13 Melatonin 3 Mg Tablet PO QHS PRN PRN Insomnia Polyethylene Glycol 17 gm 02/12/22 06:00 02/12/22 04:59 Polyethylene Glycol 3350 17 Gm Packet PO 17 gm DAILY BATSHEVA Administration Pramipexole Dihydrochloride 0.25 mg 02/11/22 22:00 02/12/22 11:05 Pramipexole Di-Hcl 0.25 Mg Tablet PO 0.25 mg 4X/DAY BATSHEVA Administration Saliva Substitute 15 ml 02/12/22 07:44 Saliva Substitute 237 Ml Bottle MUCOUS MEM 5X/DAY PRN DRY MOUTH Senna/Docusate Sodium 2 tablet 02/11/22 20:15 02/12/22 04:59 Senna/Docusate Sodium 1 Tablet PO 2 tablet BID [facility] Administration Sodium Chloride 10 - 40 ml 02/11/22 18:58 02/12/22 05:32 0.9% Saline Lock 10 Ml Syringe IV 10 ml UD PRN Administration SALINE FLUSH Tuberculin PPD 0.1 ml 02/19/22 10:00 Tuberculin,Purif.Prot.Deriv. 50 Tu/Ml Vial ID 02/19/22 10:01 X1 ONE Problem List (Last Reviewed 02/11/22 @ 19:[address] Aleks Marshall MD) Restless leg syndrome (Acute) Edema (Acute) Iron deficiency anemia (Acute) Hypomagnesemia (Acute) Osteoporosis (Acute) Hypertension (Chronic) Vitamin D deficiency (Acute) Atrial fibrillation (Acute) Compression fracture of L3 vertebra (Acute) Debility (Acute) Intractable low back pain (Acute) Vital Signs Temp Pulse Resp BP Pulse Ox O2 Del Method 97.9 F 64 18 125/51 H 91 Room Air 02/12/22 13:39 02/12/22 13:39 02/12/22 13:39 02/12/22 13:39 02/12/22 13:39 02/12/22 13:39 Oxygen Delivery Method Room Air Weight: 81.329 kg Body Mass Index (BMI) 74.1 Sodium 133 mmol/L (136-145) L 02/12/22 05:15 Potassium 4.7 mmol/L (3.5-5.1) 02/12/22 05:15 Chloride 96 mmol/L (98-107) L 02/12/22 05:15 Carbon Dioxide 33.0 mmol/L (21.0-32.0) H 02/12/22 05:15 Anion Gap 4 (5-15) L 02/12/22 05:15 BUN 25 mg/dL (7-18) H 02/12/22 05:15 Creatinine 0.84 mg/dL (0.55-1.02) 02/12/22 05:15 Est GFR (MDRD) Af Amer 83 mL/min (>60) 02/12/22 05:15 Est GFR (MDRD) Non-Af 68 mL/min (>60) 02/12/22 05:15 BUN/Creatinine Ratio 29.8 RATIO (10-20) H 02/12/22 05:15 Glucose 91 mg/dL (74-106) 02/12/22 05:15 Assessment/Plan: 1. Pain: acetaminophen 500mg PO Q6H PRN pain 1-3 and Goodwin 5/325mg 1T PO Q4H PRN pain 4-10. Resident has had 2 doses of Goodwin for pain 7-8 in the back. Please continue to monitor for S/S of increased pain, PRN usage, constipation and respiratory depression. 2. Bowel: Miralax 17gm PO daily, senna/docusate 2T PO BID and MOM 30mL PO daily PRN constipation. Please continue to monitor for S/S of constipation and PRN usage. Resident has not had any doses of MOM and has not had a documented bowel movement. 3. Hypertension/atrial fibrillation: atenolol 25mg PO AM/50 mg PM, losartan 100mg PO daily, amlodipine 5mg PO daily. Warfarin being held for kyphoplasty. Please continue to monitor BP (last 125/51), HR (last 64), renal function and swelling. 4. Edema: furosemide 10mg PO daily. Please continue to monitor potassium (last 4.7mmol/L), sodium (last 133mmol/L), edema and renal function. 5. Iron deficiency anemia: ferrous sulfate 325mg PO daily. Please continue to monitor hemoglobin (last 12g/dL), constipation and dark stools. 6. Restless leg syndrome: pramipexole 0.25mg PO 4x/day. Please continue to monitor for S/S of restless legs, drowsiness and dizziness. 7. Muscle spasm: cyclobenzaprine 5mg PO TID PRN muscle spasm. Resident has not had any doses of cyclobenzaprine. Please continue to monitor for muscle spasms, PRN usage and anticholinergic side effects. This medication is on the BEERs list because it is poorly tolerated and can lead to worsened dementia/delirium. Resident had Biotene ordered and this medication can lead to dry mouth which can worse if resident starts to receive doses. 8. Insomnia: melatonin 3mg PO QHS PRN insomnia. Please continue to monitor for S/S of insomnia and PRN usage. Resident has not had any doses so far. 10. Calcium/vitamin D deficiency and hypomagnesemia: calcium/vitamin D 1T PO BIDCM, magnesium chloride 128mg PO QHS and cholecalciferol 25mcg PO daily. Please continue to monitor calcium (last 9.5mg/dL), vitamin D (last 12/18/21) and magnesium (last 2.3mg/dL). 11. Dry mouth: Biotene 15mL MM 5x/day PRN dry mouth. Resident has not had any doses yet. Please continue to monitor for dry mouth and PRN usage. Assessment/Plan for indications treated with psychotropic medications: None Medical chart and medication regimen reviewed. The following medication irregularities or issues were identified: None Date of Note:: 02/12/22
--- NOTE | 2022-02-12 15:24 | CASEMGMT ---
Social Work Notified by nursing that pt received call from Dr. Gardner's office stating pt cannot be admitted to TCU and receive surgery 02/15. MINNIE met with pt to get further details. Pt tearful and stated if she cannot receive the procedure, she wants to DC home. SW provided emotional support and will contact the office to get clarification. MINNIE spoke with the [place] [employer] police officer, Kalyani, at Dr. Gardner's office. aKlyani spoke with the surgery center whom is stating per the surgery center's policy, the pt must be discharged 24 hours prior to the surgery and cannot admit to a facility the same day as the procedure. MINNIE educated to Medicare policy with outpatient procedures and no conflict for payment while pt is in TCU. Kalyani reiterated it is strictly the surgery center's policy. MINNIE inquired Dr. Gardner can complete the surgery at [facility] so the pt does not have to DC. Kalyani stated Dr. Gardner is only at [facility] twice a month, with the next date being 02/25, if pt wanted to wait that long. Pt does not want to wait. MINNIE thanked Kalyani for information. MINNIE followed up with pt on plan for pt to DC 02/14 at 1000 then readmit to TCU 02/16. Pt agreed and niece has rearranged her work schedule to stay with pt at pts home for those 48 hours to assist and transport. Pt very appreciative of SW. Updated IDT. Plan: DC home 02/14, received surgery, readmit to TCU 02/16 for therapy. Karolina Desir, R[place] RODRIGUEZW
[2022-02-12] MEDS: Magnesium Hydroxide 30 ML UDC PO (16:50)
--- NOTE | 2022-02-12 18:27 | DS.PCM_ITS ---
Providers Date of Admission: 02/11/22 Primary Care Physician: Dr. Doyle Swenson MD Reason For Visit: LOWER BACK PAIN Diagnosis Discharge Diagnosis (1) Debility: Status: Acute Code(s): R53.81 - Other malaise (2) Intractable low back pain: Status: Acute Code(s): M54.59 - Other low back pain (3) Compression fracture of L3 vertebra: Status: Acute Code(s): S32.030A - Wedge compression fracture of third lumbar vertebra, initial encounter for closed fracture (4) Atrial fibrillation: Status: Acute Code(s): I48.91 - Unspecified atrial fibrillation (5) Vitamin D deficiency: Status: Acute Code(s): E55.9 - Vitamin D deficiency, unspecified (6) Hypertension: Status: Chronic Code(s): I10 - Essential (primary) hypertension (7) Osteoporosis: Status: Acute Code(s): M81.0 - Age-related osteoporosis without current pathological fracture (8) Hypomagnesemia: Status: Acute Code(s): E83.42 - Hypomagnesemia (9) Iron deficiency anemia: Status: Acute Code(s): D50.9 - Iron deficiency anemia, unspecified (10) Edema: Status: Acute Code(s): R60.9 - Edema, unspecified (11) Restless leg syndrome: Status: Acute Code(s): G25.81 - Restless legs syndrome Plan 86 year old female with below past medical history hospitalized for intractable back pain secondary to L3 compression fracture, planning kyphoplasty 02/15/[address] Hunter, admitted to TCU with debility, here for rehabilitation, strengthening, prior to discharge home alone. * Debility - PT/OT. * Pain - Tylenol 1000mg q6h prn pain (1-3), [place] 5/325mg 1 tablet q4h prn pain (4-10)> * Bowel - Miralax 17gm daily, senna/colace 2 tablets bid, MOM 30ml daily prn. * Adult immunization - Administer pneumonia vaccine, covid19 vaccine, flu vaccine as appropriate. * DVT prophylaxis - Hold, preparing for kyphoplasty. * Hypertension - Atenolol 25mg am, 50mg pm, Losartan 100mg daily, Amlodipine 5mg daily. * CV prophylaxis - Aspirin 81mg daily. * Calcium deficiency - Calcium D 1 tablet bidcm. * Muscle spasm - Flexeril 5mg tid prn. * Iron deficiency anemia - Ferrous sulfate 325mg daily. * Edema - Furosemide 10mg daily. * Hypomagnesemia - Magnesium chloride 128mg qhs. * Insomnia - Melatonin 3mg qhs prn. * Restless Leg syndrome - Mirapex 0.25mg 4x/day. * Vitamin D deficiency - D3 25mcg daily. * Atrial fibrillation - Atenolol 25mg am, 50mg pm, warfarin held due to upcoming kyphoplasty. * L3 compression fracture - Dr. Hunter kyphoplasty 02/15/2022, hold warfarin. Medications at Discharge Home Medications cholecalciferol (vitamin D3) 25 mcg (1,000 unit) capsule 1,000 unit PO DAILY supplement 12/25/16 losartan 100 mg tablet 100 mg PO DAILY HTN 03/18/18 denosumab 60 mg/mL subcutaneous syringe (Prolia) 60 mg subcut [id number] osteoporosis 10/08/19 amlodipine 5 mg tablet 5 mg PO DAILY HTN 05/01/21 calcium carb-ergocalciferol (vit D2) 600 mg calcium-200 unit tablet 1 tab PO BID supplement 07/24/21 magnesium oxide 420 mg tablet 420 mg PO QHS supplement 07/24/21 ferrous sulfate 325 mg (65 mg iron) tablet 325 mg PO DAILY supplement 11/22/21 acetaminophen 500 mg tablet 500 mg PO Q6H PRN Pain 01/01/22 atenolol 25 mg tablet 25 mg PO QAM HTN 01/01/22 atenolol 50 mg tablet 50 mg PO QPM HTN 01/01/22 furosemide 20 mg tablet 10 mg PO DAILY diuretic 01/01/22 ropinirole 0.5 mg tablet 0.25 mg PO 4X/DAY restless legs 01/01/22 polyethylene glycol 3350 17 gram oral powder packet (Miralax) 17 g PO DAILY constipation 02/09/22 cyclobenzaprine 5 mg tablet 5 mg PO TID PRN muscle spasm #20 tabs 02/11/22 melatonin 3 mg tablet 3 mg PO QHS PRN PRN Insomnia #0 tabs 02/11/22 hydrocodone-acetaminophen 5-325mg 5mg-325mg 1 tab PO Q4H PRN PRN pain 4-5 3 days #18 tabs 02/12/22 sennosides 8.6 mg-docusate sodium 50 mg tablet (Stool Softener-Stimulant Laxative) 2 tab PO BID 30 days #120 tabs 02/12/22 Hospital Course Operations None Procedures None Summary of Care Provided Minutes Spent on Discharge: 35 Hospital Course: 86 year old female with below past medical history hospitalized for intractable back pain secondary to L3 compression fracture, planning kyphoplasty 02/15/[address] Gardner, admitted to TCU with debility, here for rehabilitation, strengthening, prior to discharge home alone. Discharge home with niece 02/14/2022, Kyphoplasty with Dr. Gardner 02/15/2022, readmit to TCU 02/16/2022 for therapy. Physical Exam Const alert General Appearance: cooperative HEENT normocephalic Eyes PERRL and EOMs intact bilaterally Neck supple, no JVD and no carotid bruits Resp normal respiratory effort, normal air movement and clear to auscultation bilaterally Cardio regular rate and regular rhythm GI normal to inspection, nondistended, normoactive bowel sounds, non-tender and non-distended Extremity normal capillary refill General Extremity: Negative for edema Skin no rashes or lesions noted General Skin Exam: no breakdown Psych affect normal Appearance: appropriate Weight / BMI Weight Weight: 81.329 kg Body Mass Index (BMI) 74.1 ABG / Lab / Microbiology Data Result Diagrams: 02/12/22 05:15 02/12/22 05:15 Laboratory: Laboratory Results - last 24 hr 02/12/22 05:15: WBC 8.0, RBC 4.07 L, Hgb 12.0, Hct 38.2, MCV 93.9, MCH 29.5, MCHC 31.4 L, RDW Std Deviation 47.6 H, RDW Coeff of Tiffani 13.7, Plt Count 382, MPV 9.2, Immature Gran % (Auto) 2.900 H, Neut % (Auto) 54.0, Lymph % (Auto) 25.1, [place] % (Auto) 10.2 H, Eos % (Auto) 6.8 H, Baso % (Auto) 1.0, Absolute Neuts (auto) 4.3, Absolute Lymphs (auto) 2.02, Nucleated RBC % 0 02/12/22 05:15: Sodium 133 L, Potassium 4.7, Chloride 96 L, Carbon Dioxide 33.0 H, Anion Gap 4 L, BUN 25 H, Creatinine 0.84, Estim Creat Clear Calc 36.95, Est GFR (MDRD) Af Amer 83, Est GFR (MDRD) Non-Af 68, BUN/Creatinine Ratio 29.8 H, Glucose 91, Calcium 9.5 D/C Instructions Discharge Diet: No restrictions Discharge Activity: Return to Normal Activity, May Shower and Use Walker Weight Bearing Status: Weight bearing as tolerated Call your doctor if you observe: Fever of 101 or Higher, Inability to urinate, Inability to have a bowel movement, Shortness of breath, Dizziness, Fainting spells, Swelling in the ankles, Chest pain and Uncontrolled pain Additional Instructions: Discharge home with zach 02/14/2022, Kyphoplasty with Dr. Hunter 02/15/2022, readmit to TCU 02/16/2022 for therapy. Please Follow Up With: Wallace Gardner DO When: 02/15/2022. Meaningful Use Info Meaningful Use Diagnoses (Choose all that apply): None applicable Discharge Plan Admission Admit Date/Time: 02/11/22 16:25 Primary Reason for Your Visit: Debility. Attending Provider: Aleks Marshall Chi Primary Care Provider: Doyle Swenson Instructions Additional Instructions / Restrictions: Discharge home with zach 02/14/2022, Kyphoplasty with Dr. Hunter 02/15/2022, readmit to TCU 02/16/2022 for therapy. Discharge Orders/Prescriptions Prescriptions: New sennosides-docusate sodium [Stool Softener-Stimulant Laxat] 8.6-50 mg Tablet 2 tab PO BID 30 Days Qty: 120 0RF Continued Prolia 60 mg/mL syringe 60 mg SC [id number] Rx Instructions: due in february amlodipine 5 mg tablet 5 mg PO DAILY ropinirole 0.5 mg tablet 0.25 mg PO 4X/DAY atenolol 25 mg tablet 25 mg PO QAM Label Comments: TAKE 1 TABLET BY MOUTH IN THE MORNING atenolol 50 mg tablet 50 mg PO QPM ferrous sulfate 325 mg (65 mg iron) tablet 325 mg PO DAILY cholecalciferol (vitamin D3) 1,000 UNIT capsule 1,000 unit PO DAILY acetaminophen 500 mg tablet 500 mg PO Q6H PRN (Reason: Pain) losartan 100 MG tablet 100 mg PO DAILY magnesium oxide 420 mg tablet 420 mg PO QHS Label Comments: TAKE 1 TABLET BY MOUTH ONCE DAILY calcium carbonate-vitamin D2 600 mg calcium- 200 unit Tablet 1 tab PO BID furosemide 20 mg tablet 10 mg PO DAILY Label Comments: TAKE 1 TABLET BY MOUTH IN THE MORNING polyethylene glycol 3350 [Miralax] 17 gram Powder In Packet 17 g PO DAILY melatonin 3 mg Tablet 3 mg PO QHS PRN PRN (Reason: Insomnia) Qty: 0 0RF cyclobenzaprine 5 mg tablet 5 mg PO TID PRN (Reason: muscle spasm) Qty: 20 0RF hydrocodone-acetaminophen 5-325 mg Tablet 1 tab PO Q4H PRN PRN (Reason: pain 4-5) 3 Days Qty: 18 0RF Discontinued warfarin 3 mg tablet 3 mg PO TUTH Hold Instructions: Resume on 07/30/21. Rx Instructions: --on hold for a procedure has not taken since february 05 warfarin 4 mg tablet 4 mg PO SUMOWEFRSA Hold Instructions: Resume on 07/30/21. Label Comments: =on hold for a procedure hos not taken since 02/05/22 Rx Instructions: Managed by Dr Swenson docusate sodium [Colace] 100 mg Capsule 100 mg PO BID magnesium hydroxide 400 mg/5 mL Suspension 30 ml PO DAILY PRN (Reason: Constipation) Qty: 0 0RF aspirin 81 MG tablet,delayed release (/EC) 81 mg PO DAILY@0800 Label Comments: heart health Referrals / Follow Up: Doyle Swenson MD [Primary Care Provider] - Disposition Disposition (needs filled in before D/C Order can be placed): Home, Self Care
--- NOTE | 2022-02-12 18:38 | NURSING ---
PT NAUSEATED, BROUGHT UP GRAPE SKINS. WILL GET A HOLD OF .
[2022-02-12] MEDS: MELATONIN 3 MG TABLET PO (21:41)
[2022-02-12] MEDS: Magnesium Chloride 64 MG Delay Rel.Tablet 128 MG PO (21:41)
[2022-02-12] MEDS: Atenolol 50 MG Tablet PO (21:42)
[2022-02-12] MEDS: Acetaminophen 500 MG Tablet PO (21:42)
[2022-02-12] MEDS: Saliva Substitute 237 ML BOTTLE 15 ML MUCOUS MEM (21:43)
[2022-02-13] MEDS: Pramipexole Di-HCl 0.25 MG Tablet PO ×4 (05:47→22:16)
[2022-02-13] MEDS: Senna/Docusate Sodium 1 Tablet 2 TABLET PO ×2 (05:47→18:16)
[2022-02-13] MEDS: amLODIPine 5 MG Tablet PO (05:48)
[2022-02-13] MEDS: Losartan Potassium 100 MG Tablet PO (05:48)
[2022-02-13] MEDS: Acetaminophen 500 MG Tablet PO (05:48)
[2022-02-13] MEDS: Furosemide 20 MG Tablet 10 MG PO (05:50)
[2022-02-13] MEDS: Saliva Substitute 237 ML BOTTLE 15 ML MUCOUS MEM (05:52)
[2022-02-13 05:53] VITALS: BP 147/61; PULSE 65; RESP 16; TEMP 36.3; O2SAT 92
--- NOTE | 2022-02-13 05:57 | NURSING ---
pt reporting back pain most of hs and stated that she was having some burning with urination and some dribbling. staff noted that pt urine was cloudy with a strong odor. 0600 pt stated that she felt that she was not emptying her bladder and was going small amounts. bladder scan completed and 340cc was shown to be left in pts bladder. rn made aware.
[2022-02-13] MEDS: Calcium Carb/Vitamin D 1 TABLET Tablet PO ×2 (07:55→18:15)
[2022-02-13] MEDS: Ferrous Sulfate 325 MG Tablet PO (07:55)
[2022-02-13] MEDS: Cholecalciferol (VIT D3) 25 MCG TABLET (1,000 UNITS) PO (07:56)
[2022-02-13 08:07] LABS: Mucous, Urine 0 SEEN /hpf (<or=2+); Red Blood Cells-Urine 0 SEEN /hpf (0-5); Squamous Epithelial Cells - UA 0 SEEN /hpf (5-10)
[2022-02-13 08:08] LABS: Color, Urine Yellow (Yellow); Glucose, Dipstick Normal (Normal); Ketone-Dipstick Negative (Negative); Leukocyte Esterase-Dipstick 25 /ul (Negative); Nitrite-Dipstick Negative (Negative); Occult Blood-Urine 10 /ul (Negative); Protein-Dipstick Negative (Negative); Urine Bilirubin Dipstick Negative (Negative); Urine Clarity Clear (Clear); Urine Urobilinogen Normal (Normal)
[2022-02-13 08:25] LABS: Bacteria 2+ /hpf (None Seen); White Blood Cells 5-10 SEEN /hpf (0-5)
[2022-02-13] MEDS: Ondansetron ODT 4 MG Tablet PO (09:02)
[2022-02-13] MEDS: Atenolol 25 MG Tablet PO (10:50)
--- NOTE | 2022-02-13 11:49 | NURSING ---
Yarder Engineer Note; Activity Asst: complete
[2022-02-13] MEDS: HYDROcodone Bitartrate/Apap 5/325 Tablet PO ×2 (13:38→22:49)
[2022-02-13 14:10] VITALS: BP 136/59; PULSE 66; RESP 18; TEMP 36.4; O2SAT 93
--- NOTE | 2022-02-13 15:38 | CHAPLAIN ---
Type of Pastoral Visit ___ Initial Visit _x__ Follow-up Visit ___ On-call Visit ___ General Patient Visit ___ Spiritual Assessment ___ Family Conference ___ Bereavement ___ Rapid Response ___ Code Blue ___ Other (describe below) Pastoral Care Referral From _x__ Patient ___ Family ___ Nurse ___ Physician ___ Computing Architect ___ Bleach Tester ___ Other (describe below) Sacrament/Intervention _x__ Active listening ___ Anointing ___ Holiness ___ Bereavement ___ Communion ___ Beth exploration ___ ___ Life review _x__ Prayer ___ Reconciliation ___ Sacrament of Sick ___ Supportive presence ___ Wedding ___ Other (describe below) Pastoral Comments follow up to this patient that was in [facility] previously; pt states she will be discharged tomorrow for her procedure to be done on Friday; pt admits that her situation and pain levels have still not resolved and so procedure will have to happen; pt welcomes prayer support and expresses appreciation for the concern and care; pt is encouraged to be quiet and rest to help address her pain
--- NOTE | 2022-02-13 16:33 | CASEMGMT ---
Social Work BIMS () and PHQ-9 (05/07) completed for MDS assessment. Pt attributes depressive symptoms to pain and hoping surgery will improve that. Karolina Desir, [employer] FORENSIC IDENTIFICATION SPECIALIST
[2022-02-13 22:00] VITALS: PULSE 75; RESP 16; O2SAT 92
[2022-02-13] MEDS: 0.9% Saline Lock 10 ML Syringe IV (22:15)
[2022-02-13] MEDS: Magnesium Chloride 64 MG Delay Rel.Tablet 128 MG PO (22:16)
[2022-02-13] MEDS: Atenolol 50 MG Tablet PO (22:16)
[2022-02-13 22:32] VITALS: BP 154/68; PULSE 73; RESP 16; O2SAT 92
[2022-02-14 05:30] VITALS: BP 140/60; PULSE 64; RESP 18
[2022-02-14 05:44] LABS: International Normalized Ratio 1.1; Prothrombin Time (Protime)PT. 13.6 SECONDS (11.7-14.9)
[2022-02-14] MEDS: Polyethylene Glycol 3350 17 GM PACKET PO (05:49)
[2022-02-14] MEDS: Senna/Docusate Sodium 1 Tablet 2 TABLET PO (05:49)
[2022-02-14] MEDS: Pramipexole Di-HCl 0.25 MG Tablet PO (05:49)
[2022-02-14] MEDS: Losartan Potassium 100 MG Tablet PO (05:49)
[2022-02-14] MEDS: Furosemide 20 MG Tablet 10 MG PO (05:49)
[2022-02-14] MEDS: amLODIPine 5 MG Tablet PO (05:50)
[2022-02-14] MEDS: HYDROcodone Bitartrate/Apap 5/325 Tablet PO (08:33)
[2022-02-14] MEDS: Ferrous Sulfate 325 MG Tablet PO (08:34)
[2022-02-14] MEDS: Calcium Carb/Vitamin D 1 TABLET Tablet PO (08:34)
[2022-02-14] MEDS: Cholecalciferol (VIT D3) 25 MCG TABLET (1,000 UNITS) PO (08:35)
[2022-02-14] MEDS: Atenolol 25 MG Tablet PO (09:10)
[2022-02-14 09:19] VITALS: BP 126/51; PULSE 70; RESP 18; TEMP 36.6; O2SAT 94
[2022-02-14 10:00] VITALS: PULSE 70; RESP 18; O2SAT 94
[2022-02-14 12:37] VITALS: BP 126/51; PULSE 70; RESP 18; TEMP 36.6; O2SAT 94
--- NOTE | 2022-02-21 09:32 | MDS.RN ---
Information for the mds was obtained from review of the clinical record, interview of resident, staff, and direct observation of resident's care. No pdpm codes generated with completion of mds assessment, report sent to [facility] information symptoms.
== END 2022-02-14 10:00 | disposition home or self-care (01) | DRG 544 ==
PROVIDERS: Admitting Provider Family Medicine Geriatric Medicine; PCP Family Medicine; Visit Provider Family Medicine Geriatric Medicine
DX: M48.56XA Collapsed vertebra, not elsewhere classified, lumbar region, initial encounter for fracture (principal); I27.21 Secondary pulmonary arterial hypertension; I48.0 Paroxysmal atrial fibrillation; D50.9 Iron deficiency anemia, unspecified; G25.81 Restless legs syndrome; E55.9 Vitamin D deficiency, unspecified; I10 Essential (primary) hypertension; Z79.82 Long term (current) use of aspirin; Z79.899 Other long term (current) drug therapy; Z79.01 Long term (current) use of anticoagulants
CPT/HCPCS: 36415; 80048; 81001; 85025; 85610; 87077; 87086; 87088; 87186; 97110; 97116; 97162; 97166; 97530; 97535; 97802; A4216

== ENCOUNTER → 2022-02-15 | Outpatient (CLI) | payer MEDICARE, BC, SELFPAY ==
--- NOTE | 2022-02-15 | BON_PTH ---
PATIENT: JOYCE SOLOMON LOC: [facility] U#:[id number] AGE/SX: 86/F ROOM: RE02/15/[address]: Dr. Vito Hunter MD : [id number] BED: DIS: 02/15/2022 SPEC #: [id number] RECD: 02/15/22 15:01 STATUS: KALPESH BEDOYA #: [id number] HILDA: 02/15/22 00:[address]: Vito Hunter DEPT: SURGICAL PATHOLOGY RECD BY: Oseas Child ENTERED: 02/18/22 08:12 SP TYPE: Bone OTHR DR: Dr. Hussein Swenson MD [facility] Tissues: Vertebra, NOS Procedures: Surgery Specimen Level V HEADER OPERATION: Kyphoplasty L3 PRE-OP DIAGNOSIS: Compression fracture L3 TISSUE SUBMITTED: Vertebral body of L3 MICROSCOPIC DIAGNOSIS Vertebral body, L3, kyphoplasty: Fragments of blood clots, negative for malignancy. See comment. SJ:perry 02/19/2022 COMMENT Bony tissue is not identified. Scant minute fragments of hematopoietic marrow with trilineage hematopoiesis are noted. MICROSCOPIC DESCRIPTION Slides are reviewed. GROSS DESCRIPTION Received in fixative is one container labeled with the patient's name and designated vertebral body L3. The specimen consists of scant fragments of blood clot measuring in aggregate 0.3 x 0.3 x 0.1 cm. No obvious bony tissue is identified. The entire specimen is submitted in one cassette. / MACY:perry 02/18/2022 TC:5 CPT: 39357
== END | disposition home or self-care (01) ==
LOC: LABSPEC 15:17
PROVIDERS: PCP Family Medicine; Referring Provider Anesthesiology Pain Medicine; Visit Provider Anesthesiology Pain Medicine
DX: M48.56XA Collapsed vertebra, not elsewhere classified, lumbar region, initial encounter for fracture (principal)
CPT/HCPCS: 88305; 88307; 88311

== ENCOUNTER 2022-02-16 11:29 | Inpatient (IN) | payer MEDICARE, BC, SELFPAY ==
[2022-02-16 11:58] VITALS: BP 138/51; PULSE 64; PULSE 68; RESP 16; TEMP 36.1; O2SAT 96; O2SAT 98; BMI 33.7
--- NOTE | 2022-02-16 13:08 | HP.PCM_ITS ---
HPI - General General Date of Admission: 02/16/22 Date of Service: 02/18/22 Chief Complaint: Here for rehab. HPI Narrative 02/09/2022 JOYCE SOLOMON, is a 86 Female who presents to [facility] Emergency Department with low back pain. Worse x 5 days, known compression fracture of lumbar spine. Pain getting progressively worse, weakness, unable to stand or bear weight. Morphine given. CBC okay, CMP okay, Urinalysis okay. X-ray showed L3 compression fracture. Unable to sit up or get out of bed. 02/09/2022 Admit to Hospital. Hydrocodone for back pain. PT/OT for debility. 02/10/2022 Kyphoplasty planned 02/15/[address] Hunter, warfarin on hold. Morphine IV prn back pain. 02/11/2022 Admit to TCU with debility, here for rehabilitation, strengthening, prior to discharge home alone. 02/14/2022 Resident discharged home. 02/15/2022 Dr. Gardner performed L3 kyphoplasty. 02/16/2022 Admit to TCU with debility, here for rehabilitation, strengthening, prior to discharge home alone. [facility] Medical History Abnormal CT scan Arthritis Atrial fibrillation Bleeding tendency Community acquired pneumonia CPAP (continuous positive airway pressure) dependence Difficulty balancing Essential (primary) hypertension Fatigue Hiatal hernia History of stress test HTN (hypertension) Hypertensive emergency Incomplete right bundle branch block Limb weakness Migraines Multiple fractures of ribs, left side, initial encounter for closed fracture New onset a-fib Obesity Obstructive sleep apnea Paroxysmal atrial fibrillation Pneumonia Pulmonary hypertension Restless legs Scarlet fever Secondary pulmonary arterial hypertension Shoulder pain Sleep apnea Thyroid disease Home Medications cholecalciferol (vitamin D3) 25 mcg (1,000 unit) capsule 1,000 unit PO DAILY supplement 12/25/16 [History Last Taken 02/09/22] losartan 100 mg tablet 100 mg PO DAILY HTN 03/18/18 [History Last Taken 02/09/22] denosumab 60 mg/mL subcutaneous syringe (Prolia) 60 mg subcut [id number] osteoporosis 10/08/19 [History Last Taken 08/24/21] amlodipine 5 mg tablet 5 mg PO DAILY HTN 05/01/21 [History Last Taken 02/09/22] calcium carb-ergocalciferol (vit D2) 600 mg calcium-200 unit tablet 1 tab PO BID supplement 07/24/21 [History Last Taken 02/09/22] magnesium oxide 420 mg tablet 420 mg PO QHS supplement 07/24/21 [History Last Taken 02/08/22] ferrous sulfate 325 mg (65 mg iron) tablet 325 mg PO DAILY supplement 11/22/21 [History Last Taken 02/09/22] acetaminophen 500 mg tablet 500 mg PO Q6H PRN Pain 01/01/22 [History Last Taken Unknown] atenolol 25 mg tablet 25 mg PO QAM HTN 01/01/22 [History Last Taken 02/09/22] atenolol 50 mg tablet 50 mg PO QPM HTN 01/01/22 [History Last Taken 02/08/22] furosemide 20 mg tablet 10 mg PO DAILY diuretic 01/01/22 [History Last Taken 02/08/22] ropinirole 0.5 mg tablet 0.25 mg PO 4X/DAY restless legs 01/01/22 [History Last Taken 02/09/22] polyethylene glycol 3350 17 gram oral powder packet (Miralax) 17 g PO DAILY constipation 02/09/22 [History Last Taken 02/08/22] cyclobenzaprine 5 mg tablet 5 mg PO TID PRN muscle spasm #20 tabs 02/11/22 [Rx Last Taken Unknown] melatonin 3 mg tablet 3 mg PO QHS PRN PRN Insomnia #0 tabs 02/11/22 [Rx Last Taken Unknown] hydrocodone-acetaminophen 5-325mg 5mg-325mg 1 tab PO Q4H PRN PRN pain 4-5 3 days #18 tabs 02/12/22 [Rx Last Taken Unknown] aspirin 81 mg chewable tablet 81 mg PO DAILY heart 02/16/22 [History Last Taken Unknown] sennosides 8.6 mg-docusate sodium 50 mg tablet (Stool Softener-Stimulant Laxative) 2 tab PO BID stool softener 02/16/22 [History Last Taken Unknown] warfarin 3 mg tablet 3 mg PO DAILY afib 02/16/22 [History Last Taken Unknown] warfarin 3 mg tablet 3 mg PO TUTH afib 02/16/22 [History Last Taken Unknown] warfarin 4 mg tablet 4 mg PO SUMOWEFRSA afib 02/16/22 [History Last Taken Unknown] Allergy/AdvReac Type Severity Reaction Status Date / Time cefazolin [From Ancef] Allergy Severe Swelling Verified 02/16/22 15:17 silk Allergy Intermediate itching Verified 01/01/22 14:34 beet [Beet] Allergy Hives Verified 01/01/22 14:34 cantaloupe Allergy Food Verified 01/02/22 14:51 Allergy eggplant Allergy Hives Verified 01/02/22 14:51 levofloxacin [From Levaquin] Allergy Unknown Verified 01/01/22 14:34 mold Allergy NEEDS Verified 01/02/22 14:51 FOLLOW-UP Penicillins Allergy Unknown Verified 01/01/22 14:34 tomato Allergy Food Verified 01/01/22 14:34 Allergy wheat Allergy Hives Verified 01/01/22 14:34 gabapentin [From Neurontin] AdvReac Other Verified 01/01/22 14:34 meloxicam [From Mobic] AdvReac Other Verified 01/01/22 14:34 oxycodone [From OxyIR] AdvReac Nausea Verified 01/01/22 14:34 risedronate sodium AdvReac Other Verified 01/01/22 14:34 [From Actonel] CONCENTRATES Allergy Hives Uncoded 02/12/22 15:09 fermented foods Allergy Itching Uncoded 02/12/22 15:08 Family History Other Cancer Diabetes Heart disease Surgical History H/O partial thyroidectomy History of appendectomy History of cholecystectomy History of parathyroidectomy History of thymectomy History of thyroid surgery History of tonsillectomy Hx of appendectomy Hx of bilateral cataract extraction Hx of cholecystectomy Hx of tonsillectomy Social History adopted: No household members: none housing: condominium number of children: 2 current occupational status: retired current occupational exposures/hazards: No pets and animals: No leisure activities: reading and other history of recent travel: Yes (concert in [place]) Smoking Status: Never smoker alcohol intake: never substance use type: does not use caffeine: No ROS Constitutional Constitutional: Denies chills, fever(s) or weight gain ENT HEENT: Denies headache(s), nasal congestion or nasal discharge Cardiovascular Cardiovascular: Denies chest pain or palpitations Respiratory/Chest Respiratory/Chest: Denies cough, excessive phlegm production or shortness of breath with exertion Gastrointestinal Gastrointestinal: Denies abdominal pain, nausea or vomiting Genitourinary Genitourinary: Denies dysuria Musculoskeletal Musculoskeletal: Reports back pain; Denies joint pain or joint swelling Integumentary Integumentary: Denies rash or wounds Neurologic Neurologic: Denies focal weakness, numbness or tingling Psychiatric Psychiatric: Denies anxiety, auditory hallucinations, depression, homicidal ideation or suicidal ideation Vital Signs Vital Signs Vital Signs: 02/16/22 11:58 Temperature 96.9 F L Temperature Source Temporal Pulse Rate 68 Respiratory Rate 16 Blood Pressure 138/51 H Blood Pressure Mean 80 Blood Pressure Source Monitor Blood Pressure Position Sitting Blood Pressure Location Right Forearm Pulse Ox 96 Oxygen Delivery Method Room Air Weight Weight: 80.921 kg Body Mass Index (BMI) 33.7 Physical Exam Const alert General Appearance: cooperative HEENT normocephalic Eyes PERRL and EOMs intact bilaterally Neck supple, no JVD and no carotid bruits Resp normal respiratory effort, normal air movement and clear to auscultation bilaterally Cardio regular rate and regular rhythm GI normal to inspection, nondistended, normoactive bowel sounds, non-tender and non-distended Extremity normal capillary refill General Extremity: Negative for edema Skin no rashes or lesions noted General Skin Exam: no breakdown Psych affect normal Appearance: appropriate Results Lab / Micro Data Result Diagrams: 02/17/22 06:38 02/17/22 06:38 Assessment & Plan Assessment/Plan (1) Debility: (2) Intractable low back pain: (3) Compression fracture of L3 vertebra: (4) Atrial fibrillation: (5) Vitamin D deficiency: (6) Hypertension: (7) Osteoporosis: (8) Hypomagnesemia: (9) Iron deficiency anemia: (10) Edema: (11) Restless leg syndrome: PLAN: Plan 86 year old female with below past medical history hospitalized for intractable back pain secondary to L3 compression fracture, underwent kyphoplasty 02/15/[address] Gardner, admitted to TCU with debility, here for rehabilitation, strengthening, prior to discharge home alone. * Debility - PT/OT. * Pain - Tylenol 500mg q6h prn pain (1-3), [place] 5/325mg 1 tablet q4h prn pain (4-10). * Bowel - Miralax 17gm daily, senna/colace 2 tablets bid. * Adult immunization - Administer pneumonia vaccine, covid19 vaccine, flu vaccine as appropriate. * DVT prophylaxis - Hold, on warfarin. * Hypertension - Atenolol 25mg am, 50mg pm, Amlodipine 5mg daily. * Atrial fibrillation - Atenolol 25mg am, 50mg pm, warfarin 3mg 2 days/week, 4mg 5 days/week. * Calcium deficiency - Calcium D bid. * Iron deficiency anemia - Ferrous sulfate 325mg daily. * Edema - Furosemide 10mg daily. * Hypomagnesemia - Magnesium 420mg qhs. * Insomnia - Melatonin 3mg qhs prn. * Restless Leg syndrome - Ropinirole 0.25mg 4x/day. * Vitamin D deficiency - D3 25mcg daily. * Left lumbar radiculopathy - gabapentin 100mg tid prn. * Left lower extremity edema - Doppler ultrasound left lower extremity.
[2022-02-16 15:12] VITALS: PULSE 68; RESP 16; TEMP 36.1; O2SAT 96
[2022-02-16] MEDS: HYDROcodone Bitartrate/Apap 5/325 Tablet PO ×2 (16:30→21:38)
[2022-02-16] MEDS: Cholecalciferol (VIT D3) 25 MCG TABLET (1,000 UNITS) PO (17:29)
[2022-02-16] MEDS: Calcium Carb/Vitamin D 1 TABLET Tablet PO (17:30)
[2022-02-16] MEDS: Pramipexole Di-HCl 0.125 MG Tablet PO ×2 (17:30→21:34)
[2022-02-16] MEDS: Senna/Docusate Sodium 1 Tablet 2 TABLET PO (17:31)
[2022-02-16] MEDS: Atenolol 50 MG Tablet PO (21:34)
[2022-02-16] MEDS: Magnesium Chloride 64 MG Delay Rel.Tablet 128 MG PO (21:34)
[2022-02-16] MEDS: MELATONIN 3 MG TABLET PO (21:38)
[2022-02-16 21:40] VITALS: BP 141/55; PULSE 73
[2022-02-17] MEDS: Polyethylene Glycol 3350 17 GM PACKET PO (05:46)
[2022-02-17] MEDS: Cholecalciferol (VIT D3) 25 MCG TABLET (1,000 UNITS) PO (05:47)
[2022-02-17] MEDS: Losartan Potassium 100 MG Tablet PO (05:47)
[2022-02-17] MEDS: Pramipexole Di-HCl 0.125 MG Tablet PO ×4 (05:48→20:35)
[2022-02-17] MEDS: Furosemide 20 MG Tablet 10 MG PO (05:49)
[2022-02-17] MEDS: Senna/Docusate Sodium 1 Tablet 2 TABLET PO ×2 (05:49→15:30)
[2022-02-17 05:50] VITALS: BP 112/59; PULSE 68
[2022-02-17] MEDS: amLODIPine 5 MG Tablet PO (05:50)
[2022-02-17] MEDS: HYDROcodone Bitartrate/Apap 5/325 Tablet PO ×2 (06:27→20:36)
[2022-02-17 07:05] LABS: Absolute Lymphocyte Count 1.74 X10^3/uL (0.83-4.51); Absolute Neutrophil Count 5.1 X10^3/uL (2.0-7.7); Basophil# 0.07 X10^3/uL; Basophil% 0.8 % (0-1); Eosinophil# 0.44 X10^3/uL; Eosinophils% 5.2 % (0-5); Hematocrit 35.2 % (37-47); Hemoglobin 11.1 g/dL (12.0-15.0); Lymphocyte # 1.74 X10^3/ul (0.83-4.51); Lymphocyte % 20.7 % (19-41); Mean Corp Hgb Conc 31.5 g/dL (32-36); Mean Corpuscular Hgb 29.6 pg (27.0-32.0); Mean Corpuscular Volume 93.9 fL (81-99); Mean Platelet Vol. 9.3 fl (6.2-12.0); Monocyte# 0.93 X10^3/uL; NRBC Flagged by Analyzer 0 % (0-5); Neutrophil % 60.6 % (47-70); Platelet Count 322 K/mm3 (150-450); RBC Distribution Width CV 13.5 % (11.6-14.6); RBC Distribution Width SD 46.3 fl (35.1-43.9); Red Blood Count 3.75 M/mm3 (4.2-5.4); White Blood Count 8.4 K/mm3 (4.4-11.0)
[2022-02-17 07:25] LABS: Anion Gap 6 (5-15); BUN 12 mg/dL (7-18); Calcium,Total 8.9 mg/dL (8.5-10.1); Chloride 96 mmol/L (98-107); EST Glomerular Filtration Rate 72 mL/min (>60); Est Glom Filt Rate - Afr Amer 88 mL/min (>60); Glucose 104 mg/dL (74-106); Potassium 4.4 mmol/L (3.5-5.1); Sodium Level 133 mmol/L (136-145)
[2022-02-17] MEDS: Ferrous Sulfate 325 MG Tablet PO (08:36)
[2022-02-17] MEDS: Calcium Carb/Vitamin D 1 TABLET Tablet PO ×2 (08:36→15:30)
[2022-02-17] MEDS: Atenolol 25 MG Tablet PO (08:37)
[2022-02-17] MEDS: Acetaminophen 500 MG Tablet PO (08:40)
[2022-02-17 14:00] VITALS: BP 143/53; PULSE 65; RESP 16; TEMP 36.2; O2SAT 93
[2022-02-17] MEDS: Magnesium Hydroxide 30 ML UDC PO (15:29)
[2022-02-17] MEDS: Ondansetron ODT 4 MG Tablet PO (15:29)
[2022-02-17] MEDS: Gabapentin 100 MG Capsule PO (15:29)
[2022-02-17 20:32] VITALS: BP 152/54; PULSE 79
[2022-02-17] MEDS: Atenolol 50 MG Tablet PO (20:35)
[2022-02-17] MEDS: Magnesium Chloride 64 MG Delay Rel.Tablet 128 MG PO (20:35)
[2022-02-18] MEDS: Gabapentin 100 MG Capsule PO (01:54)
[2022-02-18] MEDS: Senna/Docusate Sodium 1 Tablet 2 TABLET PO ×2 (05:18→17:22)
[2022-02-18] MEDS: Losartan Potassium 100 MG Tablet PO (05:19)
[2022-02-18] MEDS: Pramipexole Di-HCl 0.125 MG Tablet PO ×4 (05:19→21:15)
[2022-02-18] MEDS: HYDROcodone Bitartrate/Apap 5/325 Tablet PO ×3 (05:19→21:13)
[2022-02-18] MEDS: Cholecalciferol (VIT D3) 25 MCG TABLET (1,000 UNITS) PO (05:19)
[2022-02-18] MEDS: Furosemide 20 MG Tablet 10 MG PO (05:20)
[2022-02-18] MEDS: amLODIPine 5 MG Tablet PO (05:20)
[2022-02-18] MEDS: Polyethylene Glycol 3350 17 GM PACKET PO (05:20)
[2022-02-18 05:22] VITALS: BP 155/68; PULSE 67
[2022-02-18 08:09] LABS: International Normalized Ratio 1.2; Prothrombin Time (Protime)PT. 14.5 SECONDS (11.7-14.9)
[2022-02-18] MEDS: Ferrous Sulfate 325 MG Tablet PO (08:14)
[2022-02-18] MEDS: Calcium Carb/Vitamin D 1 TABLET Tablet PO ×2 (08:14→17:22)
--- NOTE | 2022-02-18 09:45 | NURSING ---
Ball Racker Note; MDS Complete
--- NOTE | 2022-02-18 09:45 | CASEMGMT ---
Social Work Pt readmitted to TCU under Medicare benefit on day 4. No changes to initial assessment, code status, MOLST form or DC plan home alone. RENO SnellW
[2022-02-18 10:00] VITALS: PULSE 67; RESP 16; O2SAT 94
--- NOTE | 2022-02-18 10:00 | NURSING ---
Silica Dry Press Helper Note; Activity Assessment Complete
[2022-02-18] MEDS: Atenolol 25 MG Tablet PO (10:44)
--- NOTE | 2022-02-18 10:58 | PHA.CONS_ITS ---
TCU RX Drug Regimen Review Subjective: TCU Admission. 86 YOF presented to ER with lower back pain. Hospitalized for intractable back pain secondary to L3 compression fracture, admitted to TCU, then discharged for kyphoplasty 02/15/[address] Hunter. Re- admitted to TCU with debility for strengthening and rehabilitation. Objective: Allergies cefazolin [From Ancef] Allergy (Severe, Verified 02/16/22 15:17) Swelling Thoat and mouth swelling silk Allergy (Intermediate, Verified 01/01/22 14:34) itching beet [Beet] Allergy (Verified 01/01/22 14:34) Hives cantaloupe Allergy (Verified 01/02/22 14:51) Food Allergy HIVES eggplant Allergy (Verified 01/02/22 14:51) Hives levofloxacin [From Levaquin] Allergy (Verified 01/01/22 14:34) Unknown mold Allergy (Verified 01/02/22 14:51) NEEDS FOLLOW-UP Penicillins Allergy (Verified 01/01/22 14:34) Unknown tomato Allergy (Verified 01/01/22 14:34) Food Allergy wheat Allergy (Verified 01/01/22 14:34) Hives gabapentin [From Neurontin] Adverse Reaction (Verified 01/01/22 14:34) Other meloxicam [From Mobic] Adverse Reaction (Verified 01/01/22 14:34) Other oxycodone [From OxyIR] Adverse Reaction (Verified 01/01/22 14:34) Nausea risedronate sodium [From Actonel] Adverse Reaction (Verified 01/01/22 14:34) Other CONCENTRATES Allergy (Uncoded 02/12/22 15:09) Hives specifically juices from concentrate fermented foods Allergy (Uncoded 02/12/22 15:08) Itching no sauerkraut, yogurt, vinegar, aged cheeses Current Medications Generic Name Dose Route Start Last Admin Trade Name Freq PRN Reason Stop Dose Admin Acetaminophen 500 mg 02/16/22 13:28 02/17/22 08:40 Acetaminophen 500 Mg Tablet PO 500 mg Q6H PRN Administration Pain Score 1-3 Hydrocodone Bitart/Acetaminophen 1 tablet 02/16/22 13:28 02/18/22 10:46 Hydrocodone Bitartrate/Apap 5/325 Tablet PO 1 tablet Q4H PRN PRN Administration Pain Score 4-10 Amlodipine Besylate 5 mg 02/17/22 06:00 02/18/22 05:20 Amlodipine 5 Mg Tablet PO 5 mg DAILY BATSHEVA Administration Atenolol 25 mg 02/17/22 10:00 02/18/22 10:44 Atenolol 25 Mg Tablet PO 25 mg QAM BATSHEVA Administration Atenolol 50 mg 02/16/22 21:00 02/17/22 20:35 Atenolol 50 Mg Tablet PO 50 mg QPM BATSHEVA Administration Calcium/Vitamin D 1 tablet 02/16/22 17:00 02/18/22 08:14 Calcium Carb/Vitamin D 1 Tablet Tablet PO 1 tablet BIDCM BATSHEVA Administration Cholecalciferol 25 mcg 02/16/22 15:00 02/18/22 05:19 Cholecalciferol (Vit D3) 25 Mcg Tablet (1,000 Units) PO 25 mcg DAILY BATSHEVA Administration Ferrous Sulfate 325 mg 02/17/22 08:00 02/18/22 08:14 Ferrous Sulfate 325 Mg Tablet PO 325 mg 0800 BATSHEVA Administration Furosemide 10 mg 02/17/22 06:00 02/18/22 05:20 Furosemide 20 Mg Tablet PO 10 mg DAILY BATSHEVA Administration Gabapentin 100 mg 02/17/22 14:29 02/18/22 01:54 Gabapentin 100 Mg Capsule PO 100 mg TIDCM PRN Administration Pain Score 1-10 Losartan Potassium 100 mg 02/17/22 06:00 02/18/22 05:19 Losartan Potassium 100 Mg Tablet PO 100 mg DAILY BATSHEVA Administration Magnesium Chloride 128 mg 02/16/22 22:00 02/17/22 20:35 Magnesium Chloride 64 Mg Delay Rel.Tablet PO 128 mg QHS BATSHEVA Administration Magnesium Hydroxide 30 ml 02/17/22 14:34 02/17/22 15:29 Magnesium Hydroxide 30 Ml Udc PO 30 ml DAILY PRN Administration Constipation Melatonin 3 mg 02/16/22 12:30 02/16/22 21:38 Melatonin 3 Mg Tablet PO 3 mg QHS PRN PRN Administration Insomnia Ondansetron HCl 4 mg 02/17/22 14:33 02/17/22 15:29 Ondansetron Odt 4 Mg Tablet PO 4 mg Q8H PRN PRN Administration NAUSEA/VOMITING Polyethylene Glycol 17 gm 02/17/22 06:00 02/18/22 05:20 Polyethylene Glycol 3350 17 Gm Packet PO 17 gm DAILY BATSHEVA Administration Pramipexole Dihydrochloride 0.125 mg 02/16/22 17:00 02/18/22 10:44 Pramipexole Di-Hcl 0.125 Mg Tablet PO 0.125 mg 4X/DAY BATSHEVA Administration Senna/Docusate Sodium 2 tablet 02/16/22 18:00 02/18/22 05:18 Senna/Docusate Sodium 1 Tablet PO 2 tablet BID BATSHEVA Administration Tuberculin PPD 0.1 ml 02/21/22 10:00 Tuberculin,Purif.Prot.Deriv. 50 Tu/Ml Vial ID 02/21/22 10:01 X1 ONE Warfarin Sodium 3 mg 02/19/22 17:00 Warfarin 3 Mg Tablet PO TuTh@1700 [facility] Warfarin Sodium 4 mg 02/16/22 17:00 02/17/22 15:33 Warfarin 4 Mg Tablet PO 4 mg [id number] [facility] Administration Problem List (Last Reviewed 02/16/22 @ 13:[address] Aleks Marshall MD) Debility (Acute) Restless leg syndrome (Acute) Edema (Acute) Iron deficiency anemia (Acute) Hypomagnesemia (Acute) Osteoporosis (Acute) Hypertension (Chronic) Vitamin D deficiency (Acute) Atrial fibrillation (Acute) Compression fracture of L3 vertebra (Acute) Intractable low back pain (Acute) Vital Signs Temp Pulse Resp BP Pulse Ox O2 Del Method 97.2 F L 67 16 155/68 H 93 Room Air 02/17/22 14:00 02/18/22 05:22 02/17/22 14:00 02/18/22 05:22 02/17/22 14:00 02/17/22 14:00 Oxygen Delivery Method Room Air Weight: 80.92 kg Body Mass Index (BMI) 33.7 Sodium 133 mmol/L (136-145) L 02/17/22 06:38 Potassium 4.4 mmol/L (3.5-5.1) 02/17/22 06:38 Chloride 96 mmol/L (98-107) L 02/17/22 06:38 Carbon Dioxide 31.0 mmol/L (21.0-32.0) 02/17/22 06:38 Anion Gap 6 (5-15) 02/17/22 06:38 BUN 12 mg/dL (7-18) 02/17/22 06:38 Creatinine 0.80 mg/dL (0.55-1.02) 02/17/22 06:38 Est GFR (MDRD) Af Amer 88 mL/min (>60) 02/17/22 06:38 Est GFR (MDRD) Non-Af 72 mL/min (>60) 02/17/22 06:38 BUN/Creatinine Ratio 15.0 RATIO (10-20) 02/17/22 06:38 Glucose 104 mg/dL (74-106) 02/17/22 06:38 Assessment/Plan: 1. Pain: acetaminophen 500mg PO Q6H PRN pain 1-[address] [place] 5/325mg 1T PO Q4H PRN pain 4-10. Resident has had 6 doses of [place] for pain 5/7-9 in the back/left leg and 1 dose of acetaminophen for pain of 10 in the thigh. Please continue to monitor for S/S of increased pain, PRN usage, constipation and respiratory depression. Last bowel movement on 02/18. 2. Bowel: Miralax 17gm PO daily, senna/docusate 2T PO BID and MOM 30mL PO daily PRN constipation. Please continue to monitor for S/S of constipation and PRN usage. Resident has had one dose of MOM and had a documented bowel movement 02/18/22. 3. Hypertension/atrial fibrillation: atenolol 25mg PO AM/50 mg PM, losartan 100mg PO daily, amlodipine 5mg PO daily and warfarin 3mg PO / and 4mg all other days. Please continue to monitor BP (last 155/68), HR (last 67), renal function, swelling, S/S of bleeding and INR (last 1.2, warfarin resumed on 02/16, has only had 2 doses.) 4. Edema: furosemide 10mg PO daily. Please continue to monitor potassium (last 4.4mmol/L), sodium (last 133mmol/L), edema and renal function. 5. Iron deficiency anemia: ferrous sulfate 325mg PO daily. Please continue to monitor hemoglobin (last 11.1g/dL), constipation and dark stools. 6. Restless leg syndrome: pramipexole 0.125mg PO 4x/day. Please continue to monitor for S/S of restless legs, drowsiness and dizziness. 8. Insomnia: melatonin 3mg PO QHS PRN insomnia. Please continue to monitor for S/S of insomnia, PRN usage and excessive drowsiness. Resident has had one dose so far. 10. Calcium/vitamin D deficiency and hypomagnesemia: calcium/vitamin D 1T PO BIDCM, magnesium chloride 128mg PO QHS and cholecalciferol 25mcg PO daily. Please continue to monitor calcium (last 8.9mg/dL), vitamin D (last 12/18/21) and magnesium (last 2.3mg/dL). 11. Nausea: ondansetron 4mg PO Q8H PRN nausea. Please continue to monitor for nausea and PRN usage. Resident has had 1 dose so far. Assessment/Plan for indications treated with psychotropic medications: 1. Left lumbar rediculopathy: gabapentin 100mg PO TIDCM PRN burning pain to left thigh. Resident has had 2 doses so far. Please continue to monitor for pain, PRN usage, renal function and falls/fractures (BEERs medication). GDR not appropriate, this medication was just started, not for psychotropic affects. Medical chart and medication regimen reviewed. The following medication irregularities or issues were identified: None Date of Note:: 02/18/22
--- NOTE | 2022-02-18 11:16 | NURSING ---
doppler negative per maintenance shop technician at this time
[2022-02-18 14:00] VITALS: BP 113/56; PULSE 68; RESP 16; TEMP 36.2; O2SAT 94
[2022-02-18] MEDS: MELATONIN 3 MG TABLET PO (21:13)
[2022-02-18] MEDS: Atenolol 50 MG Tablet PO (21:14)
[2022-02-18] MEDS: Magnesium Chloride 64 MG Delay Rel.Tablet 128 MG PO (21:14)
[2022-02-19] MEDS: HYDROcodone Bitartrate/Apap 5/325 Tablet PO ×3 (06:00→18:49)
[2022-02-19] MEDS: Furosemide 20 MG Tablet 10 MG PO (06:01)
[2022-02-19] MEDS: amLODIPine 5 MG Tablet PO (06:01)
[2022-02-19] MEDS: Polyethylene Glycol 3350 17 GM PACKET PO (06:01)
[2022-02-19] MEDS: Pramipexole Di-HCl 0.125 MG Tablet PO ×4 (06:01→22:38)
[2022-02-19] MEDS: Losartan Potassium 100 MG Tablet PO (06:01)
[2022-02-19] MEDS: Senna/Docusate Sodium 1 Tablet 2 TABLET PO ×2 (06:01→16:48)
[2022-02-19] MEDS: Cholecalciferol (VIT D3) 25 MCG TABLET (1,000 UNITS) PO (06:02)
--- NOTE | 2022-02-19 06:12 | NURSING ---
Discussed code status with patient, patient states wish to be DNRCC. Pt. states I just want to be a DNRCC, just keep me comfortable, this is my decision not my family's decision. Pt. signed DNRCC form. Second nurse (ALBERT Crawley) confirms patient wish at this time to be DNRCC.
[2022-02-19] MEDS: Calcium Carb/Vitamin D 1 TABLET Tablet PO ×2 (08:17→16:48)
[2022-02-19] MEDS: Gabapentin 100 MG Capsule PO (08:17)
[2022-02-19] MEDS: Ferrous Sulfate 325 MG Tablet PO (08:17)
[2022-02-19] MEDS: Acetaminophen 500 MG Tablet PO (08:17)
[2022-02-19 10:00] VITALS: BP 137/54; PULSE 68; PULSE 84; RESP 18; O2SAT 93
[2022-02-19] MEDS: Atenolol 25 MG Tablet PO (10:00)
[2022-02-19 14:00] VITALS: BP 132/60; PULSE 65; RESP 16; TEMP 36.5; O2SAT 94
[2022-02-19] MEDS: Ondansetron ODT 4 MG Tablet PO (18:49)
[2022-02-19] MEDS: Atenolol 50 MG Tablet PO (22:38)
[2022-02-19] MEDS: Magnesium Chloride 64 MG Delay Rel.Tablet 128 MG PO (22:38)
--- NOTE | 2022-02-20 05:58 | PCA ---
went in to get patient out of bathroom and help back to bed, patient said out of the blue that interventional pain physician didnt like her job interventional pain physician replied she loved her job. then patient said interventional pain physician must not like her to which interventional pain physician replied she didnt meet her until today. Then patient had said wait until you get old and need help. when patient called around 6am requested only interventional pain physician roni go in
[2022-02-20] MEDS: Cholecalciferol (VIT D3) 25 MCG TABLET (1,000 UNITS) PO (06:28)
[2022-02-20] MEDS: Senna/Docusate Sodium 1 Tablet 2 TABLET PO ×2 (06:28→18:29)
[2022-02-20] MEDS: Losartan Potassium 100 MG Tablet PO (06:28)
[2022-02-20] MEDS: Furosemide 20 MG Tablet 10 MG PO (06:28)
[2022-02-20] MEDS: amLODIPine 5 MG Tablet PO (06:28)
[2022-02-20] MEDS: Pramipexole Di-HCl 0.125 MG Tablet PO ×4 (06:30→20:27)
[2022-02-20] MEDS: Polyethylene Glycol 3350 17 GM PACKET PO (06:30)
[2022-02-20] MEDS: Acetaminophen 500 MG Tablet PO ×3 (08:38→23:59)
[2022-02-20] MEDS: Gabapentin 100 MG Capsule PO (08:39)
[2022-02-20] MEDS: Ferrous Sulfate 325 MG Tablet PO (08:41)
[2022-02-20] MEDS: Calcium Carb/Vitamin D 1 TABLET Tablet PO ×2 (08:41→18:29)
[2022-02-20] MEDS: Atenolol 25 MG Tablet PO (08:42)
[2022-02-20] MEDS: HYDROcodone Bitartrate/Apap 5/325 Tablet PO (09:53)
--- NOTE | 2022-02-20 09:58 | CASEMGMT ---
Social Work IDT met with patient and dtr via conference call for care plan meeting. Discussed patient's progress in PT/OT/SN. Educated to Medicare benefit. Pts goal is to return home alone and has 3 steps to enter. Pt's goal is to have pain resolved to return home at [facility]. Pt addressed issue with RN RECOVERY this morning. SW apologized and notified Director to follow up with pt. Pt and dtr appreciative. SW to continue to follow for discharge planning and support. Karolina Desir, PRINT SUPPORT SPECIALIST TURNER SPLITTER MACHINE OPERATOR
[2022-02-20 14:00] VITALS: BP 132/48; PULSE 67; RESP 16; TEMP 36.5; O2SAT 91
[2022-02-20] MEDS: Ensure Plus High Protein 120 ML LIQUID PO (18:29)
[2022-02-20 20:25] VITALS: O2SAT 94
[2022-02-20] MEDS: Atenolol 50 MG Tablet PO (20:27)
[2022-02-20] MEDS: Magnesium Chloride 64 MG Delay Rel.Tablet 128 MG PO (20:27)
[2022-02-21] MEDS: Furosemide 20 MG Tablet 10 MG PO (05:23)
[2022-02-21] MEDS: Polyethylene Glycol 3350 17 GM PACKET PO (05:23)
[2022-02-21] MEDS: Senna/Docusate Sodium 1 Tablet 2 TABLET PO ×2 (05:24→18:06)
[2022-02-21] MEDS: amLODIPine 5 MG Tablet PO (05:24)
[2022-02-21] MEDS: Pramipexole Di-HCl 0.125 MG Tablet PO ×4 (05:24→20:25)
[2022-02-21] MEDS: Losartan Potassium 100 MG Tablet PO (05:24)
[2022-02-21] MEDS: Cholecalciferol (VIT D3) 25 MCG TABLET (1,000 UNITS) PO (05:24)
[2022-02-21] MEDS: Ensure Plus High Protein 120 ML LIQUID PO ×2 (05:28→20:24)
[2022-02-21 05:55] LABS: International Normalized Ratio 1.7; Prothrombin Time (Protime)PT. 19.7 SECONDS (11.7-14.9)
[2022-02-21] MEDS: Ondansetron ODT 4 MG Tablet PO (07:09)
[2022-02-21] MEDS: Ferrous Sulfate 325 MG Tablet PO (09:22)
[2022-02-21] MEDS: Atenolol 25 MG Tablet PO (09:22)
[2022-02-21] MEDS: Calcium Carb/Vitamin D 1 TABLET Tablet PO ×2 (09:22→18:06)
[2022-02-21] MEDS: Gabapentin 100 MG Capsule PO (09:26)
[2022-02-21 09:27] VITALS: BP 128/49; PULSE 69
[2022-02-21] MEDS: HYDROcodone Bitartrate/Apap 5/325 Tablet PO ×2 (12:00→20:25)
[2022-02-21 13:48] VITALS: BP 129/60; PULSE 70; RESP 19; TEMP 36.4; O2SAT 91
[2022-02-21] MEDS: Acetaminophen 500 MG Tablet PO (15:25)
[2022-02-21] MEDS: Tuberculin,Purif.prot.deriv. 50 TU/ML Vial 0.1 ML ID (15:28)
--- NOTE | 2022-02-21 15:43 | CHAPLAIN ---
Type of Pastoral Visit _x__ Initial Visit ___ Follow-up Visit ___ On-call Visit ___ General Patient Visit ___ Spiritual Assessment ___ Family Conference ___ Bereavement ___ Rapid Response ___ Code Blue ___ Other (describe below) Pastoral Care Referral From _x__ Patient ___ Family ___ Nurse ___ Physician ___ Radio Presenter ___ Feature Writer ___ Other (describe below) Sacrament/Intervention _x__ Active listening ___ Anointing ___ Church ___ Bereavement ___ Communion _x__ Beth exploration ___ ___ Life review _x__ Prayer ___ Reconciliation ___ Sacrament of Sick _x__ Supportive presence ___ Wedding ___ Other (describe below) Pastoral Comments patient has been seen a few times in the last couple of weeks in previous admissions at [facility] and [facility]; follow up reveals that pt is still having pain and is trying to be hopeful that it will get better; pt talks about her oriental orthodox and the changes in oriental orthodox and society that are not all that agreeable to her; pt goal is to get home soon; pt welcomes presence and prayer
[2022-02-21] MEDS: Magnesium Chloride 64 MG Delay Rel.Tablet 128 MG PO (20:24)
[2022-02-21] MEDS: Atenolol 50 MG Tablet PO (20:24)
[2022-02-21 20:32] VITALS: BP 142/56; PULSE 70
[2022-02-22] MEDS: Losartan Potassium 100 MG Tablet PO (05:37)
[2022-02-22] MEDS: amLODIPine 5 MG Tablet PO (05:37)
[2022-02-22] MEDS: Senna/Docusate Sodium 1 Tablet 2 TABLET PO ×2 (05:37→18:11)
[2022-02-22] MEDS: Ensure Plus High Protein 120 ML LIQUID PO ×3 (05:37→21:16)
[2022-02-22] MEDS: Pramipexole Di-HCl 0.125 MG Tablet PO ×4 (05:37→21:15)
[2022-02-22] MEDS: Cholecalciferol (VIT D3) 25 MCG TABLET (1,000 UNITS) PO (05:37)
[2022-02-22] MEDS: Furosemide 20 MG Tablet 10 MG PO (05:38)
[2022-02-22] MEDS: Calcium Carb/Vitamin D 1 TABLET Tablet PO ×2 (08:47→18:11)
[2022-02-22] MEDS: Ferrous Sulfate 325 MG Tablet PO (08:47)
[2022-02-22] MEDS: HYDROcodone Bitartrate/Apap 5/325 Tablet PO ×2 (08:50→18:10)
[2022-02-22] MEDS: Gabapentin 100 MG Capsule PO (11:07)
[2022-02-22 11:14] VITALS: BP 132/41; BP 144/44; PULSE 68
[2022-02-22 14:00] VITALS: BP 143/65; PULSE 83; RESP 14; TEMP 36.4; O2SAT 91
[2022-02-22] MEDS: Atenolol 50 MG Tablet PO (21:14)
[2022-02-22] MEDS: Magnesium Chloride 64 MG Delay Rel.Tablet 128 MG PO (21:15)
[2022-02-22 21:19] VITALS: BP 150/66; PULSE 75
[2022-02-22 21:25] VITALS: PULSE 73; RESP 16; O2SAT 95
[2022-02-23] MEDS: Ensure Plus High Protein 120 ML LIQUID PO ×3 (04:37→17:47)
[2022-02-23] MEDS: Cholecalciferol (VIT D3) 25 MCG TABLET (1,000 UNITS) PO (04:37)
[2022-02-23] MEDS: Losartan Potassium 100 MG Tablet PO (04:38)
[2022-02-23] MEDS: Senna/Docusate Sodium 1 Tablet 2 TABLET PO ×2 (04:38→17:48)
[2022-02-23] MEDS: Pramipexole Di-HCl 0.125 MG Tablet PO ×4 (04:38→21:18)
[2022-02-23] MEDS: Furosemide 20 MG Tablet 10 MG PO (04:38)
[2022-02-23] MEDS: amLODIPine 5 MG Tablet PO (04:38)
[2022-02-23 04:42] VITALS: BP 155/55; PULSE 69
[2022-02-23] MEDS: Calcium Carb/Vitamin D 1 TABLET Tablet PO ×2 (07:59→17:47)
[2022-02-23] MEDS: HYDROcodone Bitartrate/Apap 5/325 Tablet PO ×2 (07:59→11:55)
[2022-02-23] MEDS: Ferrous Sulfate 325 MG Tablet PO (07:59)
[2022-02-23] MEDS: Gabapentin 100 MG Capsule PO ×2 (07:59→17:47)
[2022-02-23] MEDS: Atenolol 25 MG Tablet PO (09:46)
--- NOTE | 2022-02-23 09:48 | NURSING ---
Addendum entered by Marisabel Reyes 02/23/22 09:57: pt feels this is what is causing her low diastolic pressures. Original Note: pt requesting BP meds be changed to home regimen times, spoke with Eliazar in pharmacy & he is changing times for starting Friday.
[2022-02-23 09:56] VITALS: BP 122/40; PULSE 60; RESP 16; TEMP 36.4; O2SAT 93
[2022-02-23 10:31] VITALS: PULSE 68; RESP 16; O2SAT 93
--- NOTE | 2022-02-23 16:17 | NURSING ---
pt requesting that neurontin be given scheduled TID d/t the nerve pain she is having in Left thigh, states it jenikns so bad. Dr Marshall notified, new order to change from PRN to scheduled.
[2022-02-23] MEDS: Acetaminophen 500 MG Tablet PO (21:17)
[2022-02-23] MEDS: Magnesium Chloride 64 MG Delay Rel.Tablet 128 MG PO (21:18)
[2022-02-23] MEDS: Atenolol 50 MG Tablet PO (21:18)
[2022-02-23 21:42] VITALS: BP 162/55; PULSE 72; RESP 16
[2022-02-24 05:00] VITALS: BP 151/64; PULSE 78; RESP 18
[2022-02-24] MEDS: Polyethylene Glycol 3350 17 GM PACKET PO (05:38)
[2022-02-24] MEDS: Furosemide 20 MG Tablet 10 MG PO (05:38)
[2022-02-24] MEDS: Losartan Potassium 100 MG Tablet PO (05:39)
[2022-02-24] MEDS: Senna/Docusate Sodium 1 Tablet 2 TABLET PO ×2 (05:39→17:54)
[2022-02-24] MEDS: Pramipexole Di-HCl 0.125 MG Tablet PO ×4 (05:40→20:55)
[2022-02-24] MEDS: Cholecalciferol (VIT D3) 25 MCG TABLET (1,000 UNITS) PO (05:40)
[2022-02-24] MEDS: Atenolol 25 MG Tablet PO (05:40)
[2022-02-24] MEDS: HYDROcodone Bitartrate/Apap 5/325 Tablet PO ×2 (05:44→19:42)
[2022-02-24 06:47] LABS: Absolute Lymphocyte Count 1.41 X10^3/uL (0.83-4.51); Absolute Neutrophil Count 4.3 X10^3/uL (2.0-7.7); Basophil# 0.05 X10^3/uL; Basophil% 0.7 % (0-1); Eosinophil# 0.32 X10^3/uL; Eosinophils% 4.7 % (0-5); Hematocrit 35.9 % (37-47); Hemoglobin 11.2 g/dL (12.0-15.0); Lymphocyte # 1.41 X10^3/ul (0.83-4.51); Lymphocyte % 20.5 % (19-41); Mean Corp Hgb Conc 31.2 g/dL (32-36); Mean Corpuscular Hgb 29.3 pg (27.0-32.0); Mean Platelet Vol. 9.1 fl (6.2-12.0); Monocyte# 0.73 X10^3/uL; Monocyte% 10.6 % (0-10); NRBC Flagged by Analyzer 0 % (0-5); Neutrophil # 4.33 X10^3/uL (2.7-7.7); Neutrophil % 62.9 % (47-70); Platelet Count 294 K/mm3 (150-450); RBC Distribution Width CV 13.9 % (11.6-14.6); Red Blood Count 3.82 M/mm3 (4.2-5.4); White Blood Count 6.9 K/mm3 (4.4-11.0)
[2022-02-24 07:01] LABS: International Normalized Ratio 2.2
[2022-02-24 07:23] LABS: Anion Gap 8 (5-15); BUN 17 mg/dL (7-18); BUN/Creat Ratio 21.5 RATIO (10-20); Calcium,Total 9.1 mg/dL (8.5-10.1); Chloride 100 mmol/L (98-107); Creatinine, Serum 0.79 mg/dL (0.55-1.02); EST Glomerular Filtration Rate 73 mL/min (>60); Est Glom Filt Rate - Afr Amer 89 mL/min (>60); Estimated Creatinine Clearance 31.04 ml/min; Glucose 101 mg/dL (74-106); Potassium 3.9 mmol/L (3.5-5.1); Sodium Level 138 mmol/L (136-145)
[2022-02-24] MEDS: Ferrous Sulfate 325 MG Tablet PO (08:41)
[2022-02-24] MEDS: Gabapentin 100 MG Capsule PO ×3 (08:41→17:52)
[2022-02-24] MEDS: Calcium Carb/Vitamin D 1 TABLET Tablet PO ×2 (08:41→17:53)
[2022-02-24] MEDS: Ensure Plus High Protein 120 ML LIQUID PO ×2 (12:15→17:52)
[2022-02-24] MEDS: amLODIPine 5 MG Tablet PO (12:16)
[2022-02-24 12:17] VITALS: BP 148/53; PULSE 72; RESP 18; TEMP 36.8; O2SAT 96
[2022-02-24 20:00] VITALS: PULSE 80; RESP 14; O2SAT 98
[2022-02-24] MEDS: MELATONIN 3 MG TABLET PO (20:46)
[2022-02-24] MEDS: Atenolol 50 MG Tablet PO (20:55)
[2022-02-24] MEDS: Magnesium Chloride 64 MG Delay Rel.Tablet 128 MG PO (20:55)
[2022-02-25] MEDS: Acetaminophen 500 MG Tablet PO ×4 (04:40→23:26)
[2022-02-25] MEDS: Cholecalciferol (VIT D3) 25 MCG TABLET (1,000 UNITS) PO (04:40)
[2022-02-25] MEDS: Furosemide 20 MG Tablet 10 MG PO (04:40)
[2022-02-25] MEDS: Polyethylene Glycol 3350 17 GM PACKET PO (04:40)
[2022-02-25] MEDS: Losartan Potassium 100 MG Tablet PO (04:41)
[2022-02-25] MEDS: Pramipexole Di-HCl 0.125 MG Tablet PO ×4 (04:41→21:40)
[2022-02-25] MEDS: Atenolol 25 MG Tablet PO (04:41)
[2022-02-25] MEDS: Senna/Docusate Sodium 1 Tablet 2 TABLET PO (04:42)
[2022-02-25 04:49] VITALS: BP 155/53; PULSE 63
[2022-02-25] MEDS: Ferrous Sulfate 325 MG Tablet PO (08:57)
[2022-02-25] MEDS: Calcium Carb/Vitamin D 1 TABLET Tablet PO ×2 (08:57→17:11)
[2022-02-25] MEDS: Gabapentin 100 MG Capsule PO ×3 (08:58→17:11)
[2022-02-25] MEDS: amLODIPine 5 MG Tablet PO (13:08)
[2022-02-25 14:00] VITALS: BP 148/61; PULSE 69; RESP 16; TEMP 36.9; O2SAT 96
[2022-02-25] MEDS: MELATONIN 3 MG TABLET PO (21:38)
[2022-02-25] MEDS: Magnesium Chloride 64 MG Delay Rel.Tablet 128 MG PO (21:40)
[2022-02-25] MEDS: Atenolol 50 MG Tablet PO (21:42)
[2022-02-26] MEDS: Polyethylene Glycol 3350 17 GM PACKET PO (05:25)
[2022-02-26] MEDS: Senna/Docusate Sodium 1 Tablet 2 TABLET PO ×2 (05:25→17:08)
[2022-02-26] MEDS: Furosemide 20 MG Tablet 10 MG PO (05:25)
[2022-02-26] MEDS: Pramipexole Di-HCl 0.125 MG Tablet PO ×4 (05:27→21:05)
[2022-02-26] MEDS: Cholecalciferol (VIT D3) 25 MCG TABLET (1,000 UNITS) PO (05:27)
[2022-02-26] MEDS: Losartan Potassium 100 MG Tablet PO (05:27)
[2022-02-26] MEDS: Atenolol 25 MG Tablet PO (05:27)
[2022-02-26] MEDS: HYDROcodone Bitartrate/Apap 5/325 Tablet PO ×2 (06:46→21:17)
[2022-02-26] MEDS: Ferrous Sulfate 325 MG Tablet PO (08:25)
[2022-02-26] MEDS: Calcium Carb/Vitamin D 1 TABLET Tablet PO ×2 (08:25→17:08)
[2022-02-26] MEDS: Gabapentin 100 MG Capsule PO ×3 (08:27→17:09)
[2022-02-26] MEDS: amLODIPine 5 MG Tablet PO (11:50)
[2022-02-26 11:51] VITALS: BP 153/64; PULSE 69; RESP 18; TEMP 36; O2SAT 96
[2022-02-26] MEDS: Ensure Plus High Protein 120 ML LIQUID PO (11:54)
[2022-02-26] MEDS: Ondansetron ODT 4 MG Tablet PO (12:56)
[2022-02-26 14:00] VITALS: BP 146/63; PULSE 70; RESP 18; TEMP 36.5; O2SAT 97
[2022-02-26] MEDS: MELATONIN 3 MG TABLET PO (21:03)
[2022-02-26] MEDS: Magnesium Chloride 64 MG Delay Rel.Tablet 128 MG PO (21:04)
[2022-02-26] MEDS: Atenolol 50 MG Tablet PO (21:04)
--- NOTE | 2022-02-26 22:34 | NURSING ---
Pt has cpap on at this time and resting with call light within reach.
[2022-02-27] MEDS: Polyethylene Glycol 3350 17 GM PACKET PO (05:03)
[2022-02-27] MEDS: Senna/Docusate Sodium 1 Tablet 2 TABLET PO ×2 (05:05→17:22)
[2022-02-27] MEDS: Furosemide 20 MG Tablet 10 MG PO (05:05)
[2022-02-27] MEDS: Cholecalciferol (VIT D3) 25 MCG TABLET (1,000 UNITS) PO (05:05)
[2022-02-27] MEDS: Pramipexole Di-HCl 0.125 MG Tablet PO ×4 (05:05→20:44)
[2022-02-27] MEDS: Losartan Potassium 100 MG Tablet PO (05:05)
[2022-02-27] MEDS: Atenolol 25 MG Tablet PO (05:14)
[2022-02-27] MEDS: Calcium Carb/Vitamin D 1 TABLET Tablet PO ×2 (07:40→17:21)
[2022-02-27] MEDS: Ferrous Sulfate 325 MG Tablet PO (07:40)
[2022-02-27] MEDS: Gabapentin 100 MG Capsule PO ×3 (07:40→17:21)
--- NOTE | 2022-02-27 07:41 | MDS.RN ---
Information for the mds was obtained from review of the clinical record, interview of resident, staff, and direct observation of resident's care. PDPM codes did not generate with completed MDS assessment, error report sent to [facility] information systems.
[2022-02-27] MEDS: HYDROcodone Bitartrate/Apap 5/325 Tablet PO ×2 (09:38→17:28)
[2022-02-27] MEDS: amLODIPine 5 MG Tablet PO (12:04)
[2022-02-27 13:39] VITALS: BP 132/50; PULSE 67; RESP 16; TEMP 36.1; O2SAT 95
[2022-02-27] MEDS: Magnesium Chloride 64 MG Delay Rel.Tablet 128 MG PO (20:44)
[2022-02-27] MEDS: Atenolol 50 MG Tablet PO (20:44)
[2022-02-28] MEDS: Polyethylene Glycol 3350 17 GM PACKET PO (05:02)
[2022-02-28] MEDS: Senna/Docusate Sodium 1 Tablet 2 TABLET PO (05:04)
[2022-02-28] MEDS: Cholecalciferol (VIT D3) 25 MCG TABLET (1,000 UNITS) PO (05:04)
[2022-02-28] MEDS: HYDROcodone Bitartrate/Apap 5/325 Tablet PO ×2 (05:04→18:36)
[2022-02-28] MEDS: Pramipexole Di-HCl 0.125 MG Tablet PO ×4 (05:04→19:40)
[2022-02-28] MEDS: Losartan Potassium 100 MG Tablet PO (05:05)
[2022-02-28] MEDS: Furosemide 20 MG Tablet 10 MG PO (05:05)
[2022-02-28] MEDS: Atenolol 25 MG Tablet PO (05:05)
[2022-02-28 05:57] LABS: International Normalized Ratio 2.8; Prothrombin Time (Protime)PT. 29.2 SECONDS (11.7-14.9)
[2022-02-28 06:58] VITALS: BP 158/71; PULSE 74
[2022-02-28] MEDS: Ferrous Sulfate 325 MG Tablet PO (09:16)
[2022-02-28] MEDS: Calcium Carb/Vitamin D 1 TABLET Tablet PO ×2 (09:16→18:36)
[2022-02-28] MEDS: Gabapentin 100 MG Capsule PO ×3 (09:17→18:37)
[2022-02-28] MEDS: Acetaminophen 500 MG Tablet PO (11:31)
[2022-02-28] MEDS: amLODIPine 5 MG Tablet PO (11:32)
[2022-02-28 13:40] VITALS: BP 144/58; PULSE 64; RESP 16; TEMP 36.4; O2SAT 95
[2022-02-28 19:40] VITALS: BP 131/47; PULSE 76; RESP 16
[2022-02-28] MEDS: Magnesium Chloride 64 MG Delay Rel.Tablet 128 MG PO (19:40)
[2022-02-28] MEDS: Atenolol 50 MG Tablet PO (19:43)
[2022-03-01 05:30] VITALS: BP 179/57; PULSE 79; RESP 17; O2SAT 93
[2022-03-01] MEDS: Furosemide 20 MG Tablet 10 MG PO (05:31)
[2022-03-01] MEDS: Losartan Potassium 100 MG Tablet PO (05:31)
[2022-03-01] MEDS: Atenolol 25 MG Tablet PO (05:31)
[2022-03-01] MEDS: Pramipexole Di-HCl 0.125 MG Tablet PO ×4 (05:31→22:40)
[2022-03-01] MEDS: Cholecalciferol (VIT D3) 25 MCG TABLET (1,000 UNITS) PO (05:31)
[2022-03-01] MEDS: Ferrous Sulfate 325 MG Tablet PO (07:54)
[2022-03-01] MEDS: Calcium Carb/Vitamin D 1 TABLET Tablet PO ×2 (07:54→17:17)
[2022-03-01] MEDS: Gabapentin 100 MG Capsule PO ×3 (07:56→17:17)
[2022-03-01] MEDS: Acetaminophen 500 MG Tablet PO (07:57)
[2022-03-01 08:00] VITALS: PULSE 71; RESP 16; O2SAT 93
[2022-03-01] MEDS: HYDROcodone Bitartrate/Apap 5/325 Tablet PO (09:56)
[2022-03-01] MEDS: amLODIPine 5 MG Tablet PO (12:12)
[2022-03-01 12:14] VITALS: BP 154/49; PULSE 64; RESP 16; TEMP 36.9; O2SAT 96
[2022-03-01] MEDS: Senna/Docusate Sodium 1 Tablet 2 TABLET PO (17:17)
[2022-03-01] MEDS: Magnesium Chloride 64 MG Delay Rel.Tablet 128 MG PO (22:40)
[2022-03-01] MEDS: Atenolol 50 MG Tablet PO (22:40)
[2022-03-02] MEDS: Polyethylene Glycol 3350 17 GM PACKET PO (06:12)
[2022-03-02] MEDS: HYDROcodone Bitartrate/Apap 5/325 Tablet PO ×2 (06:15→17:58)
[2022-03-02] MEDS: Atenolol 25 MG Tablet PO (06:15)
[2022-03-02] MEDS: Losartan Potassium 100 MG Tablet PO (06:16)
[2022-03-02] MEDS: Senna/Docusate Sodium 1 Tablet 2 TABLET PO (06:16)
[2022-03-02] MEDS: Furosemide 20 MG Tablet 10 MG PO (06:16)
[2022-03-02] MEDS: Pramipexole Di-HCl 0.125 MG Tablet PO ×4 (06:17→20:36)
[2022-03-02] MEDS: Cholecalciferol (VIT D3) 25 MCG TABLET (1,000 UNITS) PO (06:17)
[2022-03-02] MEDS: Calcium Carb/Vitamin D 1 TABLET Tablet PO ×2 (08:28→17:56)
[2022-03-02] MEDS: Ferrous Sulfate 325 MG Tablet PO (08:28)
[2022-03-02] MEDS: Gabapentin 100 MG Capsule PO ×3 (08:28→17:56)
[2022-03-02 14:00] VITALS: BP 109/60; PULSE 70; RESP 16; TEMP 36.4; O2SAT 95
[2022-03-02] MEDS: Magnesium Chloride 64 MG Delay Rel.Tablet 128 MG PO (20:35)
[2022-03-02] MEDS: Atenolol 50 MG Tablet PO (20:35)
[2022-03-02 20:37] VITALS: BP 129/52; PULSE 72
[2022-03-03] MEDS: HYDROcodone Bitartrate/Apap 5/325 Tablet PO (06:39)
[2022-03-03] MEDS: Senna/Docusate Sodium 1 Tablet 2 TABLET PO ×2 (06:40→17:09)
[2022-03-03] MEDS: Furosemide 20 MG Tablet 10 MG PO (06:40)
[2022-03-03] MEDS: Losartan Potassium 100 MG Tablet PO (06:40)
[2022-03-03] MEDS: Cholecalciferol (VIT D3) 25 MCG TABLET (1,000 UNITS) PO (06:40)
[2022-03-03] MEDS: Pramipexole Di-HCl 0.125 MG Tablet PO ×4 (06:41→21:08)
[2022-03-03] MEDS: Atenolol 25 MG Tablet PO (06:42)
[2022-03-03 07:27] LABS: Absolute Neutrophil Count 4.6 X10^3/uL (2.0-7.7); Basophil# 0.03 X10^3/uL; Basophil% 0.4 % (0-1); Eosinophil# 0.32 X10^3/uL; Eosinophils% 4.3 % (0-5); Hemoglobin 11.3 g/dL (12.0-15.0); Mean Corp Hgb Conc 32.3 g/dL (32-36); Mean Corpuscular Hgb 29.9 pg (27.0-32.0); Mean Corpuscular Volume 92.6 fL (81-99); Mean Platelet Vol. 9.2 fl (6.2-12.0); Monocyte# 0.71 X10^3/uL; Monocyte% 9.6 % (0-10); NRBC Flagged by Analyzer 0 % (0-5); Neutrophil # 4.59 X10^3/uL (2.7-7.7); Neutrophil % 62.2 % (47-70); Platelet Count 354 K/mm3 (150-450); RBC Distribution Width CV 13.9 % (11.6-14.6); RBC Distribution Width SD 47.1 fl (35.1-43.9); Red Blood Count 3.78 M/mm3 (4.2-5.4); White Blood Count 7.4 K/mm3 (4.4-11.0)
[2022-03-03 07:33] LABS: International Normalized Ratio 3.2; Prothrombin Time (Protime)PT. 32.4 SECONDS (11.7-14.9)
[2022-03-03 07:59] LABS: Anion Gap 6 (5-15); BUN 17 mg/dL (7-18); BUN/Creat Ratio 26.1 RATIO (10-20); Calcium,Total 8.9 mg/dL (8.5-10.1); Chloride 101 mmol/L (98-107); Creatinine, Serum 0.65 mg/dL (0.55-1.02); EST Glomerular Filtration Rate 92 mL/min (>60); Est Glom Filt Rate - Afr Amer 111 mL/min (>60); Estimated Creatinine Clearance 31.04 ml/min; Glucose 93 mg/dL (74-106); Potassium 3.9 mmol/L (3.5-5.1); Sodium Level 136 mmol/L (136-145)
[2022-03-03] MEDS: Calcium Carb/Vitamin D 1 TABLET Tablet PO ×2 (08:16→17:09)
[2022-03-03] MEDS: Gabapentin 100 MG Capsule PO ×3 (08:16→17:08)
[2022-03-03] MEDS: Ferrous Sulfate 325 MG Tablet PO (08:16)
[2022-03-03] MEDS: amLODIPine 5 MG Tablet PO (11:38)
[2022-03-03 11:39] VITALS: BP 144/49; PULSE 61
[2022-03-03 14:00] VITALS: BP 126/60; PULSE 70; RESP 16; TEMP 36.6; O2SAT 97
[2022-03-03 20:52] VITALS: PULSE 79; RESP 17; O2SAT 97
[2022-03-03] MEDS: Atenolol 50 MG Tablet PO (21:08)
[2022-03-03] MEDS: Magnesium Chloride 64 MG Delay Rel.Tablet 128 MG PO (21:08)
[2022-03-03 21:11] VITALS: BP 134/65; PULSE 79; RESP 17; TEMP 36.8
--- NOTE | 2022-03-03 21:15 | NURSING ---
Pt reports feeling hoarse. Intermittent productive cough w/ yellow sputum. Positive for nasal congestion. No nasal drainage. Reports symptoms started a few days ago and has experienced these symptoms in the past. Symptoms are slowly starting to improve per pt. Has been increasing fluid intake. Has used saline nasal spray in the past at home. Has tried Nasacort at home and did not feel any benefit was achieved. In no acute distress. Will continue to monitor.
[2022-03-04] MEDS: Polyethylene Glycol 3350 17 GM PACKET PO (05:18)
[2022-03-04] MEDS: Losartan Potassium 100 MG Tablet PO (05:19)
[2022-03-04] MEDS: Cholecalciferol (VIT D3) 25 MCG TABLET (1,000 UNITS) PO (05:19)
[2022-03-04] MEDS: Pramipexole Di-HCl 0.125 MG Tablet PO ×4 (05:19→19:57)
[2022-03-04] MEDS: Furosemide 20 MG Tablet 10 MG PO (05:20)
[2022-03-04] MEDS: Senna/Docusate Sodium 1 Tablet 2 TABLET PO ×2 (05:20→18:24)
[2022-03-04] MEDS: Atenolol 25 MG Tablet PO (05:24)
[2022-03-04 05:25] VITALS: BP 145/52; PULSE 67
[2022-03-04] MEDS: Calcium Carb/Vitamin D 1 TABLET Tablet PO ×2 (09:05→18:23)
[2022-03-04] MEDS: Ferrous Sulfate 325 MG Tablet PO (09:05)
[2022-03-04] MEDS: Gabapentin 100 MG Capsule PO ×3 (09:05→18:24)
[2022-03-04] MEDS: HYDROcodone Bitartrate/Apap 5/325 Tablet PO (09:08)
[2022-03-04] MEDS: amLODIPine 5 MG Tablet PO (12:04)
[2022-03-04 14:00] VITALS: BP 140/54; PULSE 67; RESP 20; TEMP 36.1; O2SAT 98
[2022-03-04] MEDS: Acetaminophen 500 MG Tablet PO (19:56)
[2022-03-04] MEDS: Magnesium Chloride 64 MG Delay Rel.Tablet 128 MG PO (19:57)
[2022-03-04] MEDS: Atenolol 50 MG Tablet PO (19:57)
[2022-03-05] MEDS: Polyethylene Glycol 3350 17 GM PACKET PO (04:58)
[2022-03-05 05:00] VITALS: BP 162/58; PULSE 69
[2022-03-05] MEDS: Atenolol 25 MG Tablet PO (05:00)
[2022-03-05] MEDS: Cholecalciferol (VIT D3) 25 MCG TABLET (1,000 UNITS) PO (05:00)
[2022-03-05] MEDS: Furosemide 20 MG Tablet 10 MG PO (05:00)
[2022-03-05] MEDS: Pramipexole Di-HCl 0.125 MG Tablet PO ×4 (05:02→21:28)
[2022-03-05] MEDS: Senna/Docusate Sodium 1 Tablet 2 TABLET PO ×2 (05:02→18:16)
[2022-03-05] MEDS: Losartan Potassium 100 MG Tablet PO (05:02)
[2022-03-05] MEDS: Ferrous Sulfate 325 MG Tablet PO (08:46)
[2022-03-05] MEDS: Calcium Carb/Vitamin D 1 TABLET Tablet PO ×2 (08:46→18:16)
[2022-03-05] MEDS: Acetaminophen 500 MG Tablet PO (08:47)
[2022-03-05] MEDS: Gabapentin 100 MG Capsule PO ×3 (08:47→18:16)
[2022-03-05] MEDS: HYDROcodone Bitartrate/Apap 5/325 Tablet PO (09:42)
[2022-03-05] MEDS: amLODIPine 5 MG Tablet PO (11:58)
[2022-03-05 12:01] VITALS: BP 135/47; PULSE 63; RESP 18; TEMP 36.8; O2SAT 93
[2022-03-05] MEDS: Magnesium Chloride 64 MG Delay Rel.Tablet 128 MG PO (21:28)
[2022-03-05] MEDS: Atenolol 50 MG Tablet PO (21:28)
[2022-03-05 21:35] VITALS: PULSE 74; RESP 16; O2SAT 94
[2022-03-05 21:36] VITALS: BP 156/60; PULSE 74
[2022-03-06] MEDS: Furosemide 20 MG Tablet 10 MG PO (06:39)
[2022-03-06] MEDS: Losartan Potassium 100 MG Tablet PO (06:39)
[2022-03-06] MEDS: Pramipexole Di-HCl 0.125 MG Tablet PO ×4 (06:39→20:12)
[2022-03-06] MEDS: Cholecalciferol (VIT D3) 25 MCG TABLET (1,000 UNITS) PO (06:39)
[2022-03-06] MEDS: Atenolol 25 MG Tablet PO (06:39)
[2022-03-06] MEDS: Senna/Docusate Sodium 1 Tablet 2 TABLET PO ×2 (06:39→17:34)
[2022-03-06] MEDS: Gabapentin 100 MG Capsule PO ×3 (08:03→17:34)
[2022-03-06] MEDS: HYDROcodone Bitartrate/Apap 5/325 Tablet PO ×2 (08:03→17:30)
[2022-03-06] MEDS: Ferrous Sulfate 325 MG Tablet PO (08:03)
[2022-03-06] MEDS: Calcium Carb/Vitamin D 1 TABLET Tablet PO ×2 (08:04→17:34)
[2022-03-06] MEDS: amLODIPine 5 MG Tablet PO (12:04)
[2022-03-06 14:32] VITALS: BP 126/43; PULSE 64; RESP 16; TEMP 36.2; O2SAT 95
[2022-03-06] MEDS: Magnesium Chloride 64 MG Delay Rel.Tablet 128 MG PO (20:12)
[2022-03-06] MEDS: Atenolol 50 MG Tablet PO (20:14)
[2022-03-06 22:00] VITALS: PULSE 62; RESP 16; O2SAT 96
[2022-03-07] MEDS: Furosemide 20 MG Tablet 10 MG PO (06:00)
[2022-03-07 06:01] LABS: International Normalized Ratio 3.7; Prothrombin Time (Protime)PT. 36.7 SECONDS (11.7-14.9)
[2022-03-07] MEDS: Losartan Potassium 100 MG Tablet PO (06:01)
[2022-03-07] MEDS: Cholecalciferol (VIT D3) 25 MCG TABLET (1,000 UNITS) PO (06:02)
[2022-03-07] MEDS: Pramipexole Di-HCl 0.125 MG Tablet PO ×4 (06:02→20:17)
[2022-03-07] MEDS: Polyethylene Glycol 3350 17 GM PACKET PO ×2 (06:02)
[2022-03-07] MEDS: Senna/Docusate Sodium 1 Tablet 2 TABLET PO ×2 (06:02→17:09)
[2022-03-07] MEDS: Atenolol 25 MG Tablet PO (06:03)
[2022-03-07] MEDS: Calcium Carb/Vitamin D 1 TABLET Tablet PO ×2 (07:29→17:08)
[2022-03-07] MEDS: Ferrous Sulfate 325 MG Tablet PO (07:29)
[2022-03-07] MEDS: Gabapentin 100 MG Capsule PO ×3 (07:30→17:07)
[2022-03-07] MEDS: HYDROcodone Bitartrate/Apap 5/325 Tablet PO ×2 (08:15→20:16)
--- NOTE | 2022-03-07 08:25 | NURSING ---
DR CURRY NOTIFIED OF INR 3.7. N.O. DECREASE JANTOVEN TO 3MG. R' UPDATED.
[2022-03-07] MEDS: amLODIPine 5 MG Tablet PO (11:49)
[2022-03-07 14:00] VITALS: BP 168/59; PULSE 76; RESP 16; TEMP 36.5; O2SAT 91
[2022-03-07 18:11] VITALS: BP 139/51; PULSE 83
[2022-03-07] MEDS: MELATONIN 3 MG TABLET PO (20:14)
[2022-03-07] MEDS: Atenolol 50 MG Tablet PO (20:18)
[2022-03-07] MEDS: Magnesium Chloride 64 MG Delay Rel.Tablet 128 MG PO (20:18)
[2022-03-08 04:45] VITALS: BP 156/55; PULSE 68
[2022-03-08] MEDS: Senna/Docusate Sodium 1 Tablet 2 TABLET PO ×2 (04:50→17:10)
[2022-03-08] MEDS: Polyethylene Glycol 3350 17 GM PACKET PO (04:50)
[2022-03-08] MEDS: Pramipexole Di-HCl 0.125 MG Tablet PO ×4 (04:51→21:36)
[2022-03-08] MEDS: Cholecalciferol (VIT D3) 25 MCG TABLET (1,000 UNITS) PO (04:51)
[2022-03-08] MEDS: Atenolol 25 MG Tablet PO (04:51)
[2022-03-08] MEDS: Furosemide 20 MG Tablet 10 MG PO (04:51)
[2022-03-08] MEDS: Losartan Potassium 100 MG Tablet PO (04:51)
[2022-03-08] MEDS: Calcium Carb/Vitamin D 1 TABLET Tablet PO ×2 (08:24→17:09)
[2022-03-08] MEDS: Gabapentin 100 MG Capsule PO ×3 (08:24→17:10)
[2022-03-08] MEDS: Ferrous Sulfate 325 MG Tablet PO (08:24)
[2022-03-08] MEDS: HYDROcodone Bitartrate/Apap 5/325 Tablet PO (08:26)
[2022-03-08 12:50] VITALS: BP 134/44; PULSE 66; RESP 18; TEMP 36.8; O2SAT 95
[2022-03-08] MEDS: amLODIPine 5 MG Tablet PO (12:51)
[2022-03-08] MEDS: Atenolol 50 MG Tablet PO (21:36)
[2022-03-08] MEDS: Magnesium Chloride 64 MG Delay Rel.Tablet 128 MG PO (21:36)
[2022-03-08 21:40] VITALS: PULSE 70; RESP 16; O2SAT 16
[2022-03-09] MEDS: Atenolol 25 MG Tablet PO (04:38)
[2022-03-09] MEDS: HYDROcodone Bitartrate/Apap 5/325 Tablet PO (04:38)
[2022-03-09] MEDS: Furosemide 20 MG Tablet 10 MG PO (04:38)
[2022-03-09] MEDS: Senna/Docusate Sodium 1 Tablet 2 TABLET PO ×2 (04:39→16:58)
[2022-03-09] MEDS: Pramipexole Di-HCl 0.125 MG Tablet PO ×4 (04:39→20:15)
[2022-03-09] MEDS: Losartan Potassium 100 MG Tablet PO (04:39)
[2022-03-09] MEDS: Cholecalciferol (VIT D3) 25 MCG TABLET (1,000 UNITS) PO (04:40)
[2022-03-09] MEDS: Polyethylene Glycol 3350 17 GM PACKET PO (05:02)
[2022-03-09 05:35] VITALS: BP 153/51; PULSE 65; RESP 16
[2022-03-09 06:31] LABS: International Normalized Ratio 3.4; Prothrombin Time (Protime)PT. 34.2 SECONDS (11.7-14.9)
[2022-03-09] MEDS: Gabapentin 100 MG Capsule PO ×3 (08:55→16:58)
[2022-03-09] MEDS: Calcium Carb/Vitamin D 1 TABLET Tablet PO ×2 (08:55→16:56)
[2022-03-09] MEDS: Ferrous Sulfate 325 MG Tablet PO (08:55)
[2022-03-09] MEDS: amLODIPine 5 MG Tablet PO (11:57)
[2022-03-09 11:58] VITALS: BP 143/52
[2022-03-09 13:48] VITALS: BP 150/57; PULSE 61; RESP 14; TEMP 36.3; O2SAT 97
[2022-03-09] MEDS: Atenolol 50 MG Tablet PO (20:15)
[2022-03-09] MEDS: Magnesium Chloride 64 MG Delay Rel.Tablet 128 MG PO (20:15)
[2022-03-10] MEDS: HYDROcodone Bitartrate/Apap 5/325 Tablet PO ×3 (01:30→20:26)
[2022-03-10 05:14] LABS: International Normalized Ratio 3.1; Prothrombin Time (Protime)PT. 31.3 SECONDS (11.7-14.9)
[2022-03-10] MEDS: Cholecalciferol (VIT D3) 25 MCG TABLET (1,000 UNITS) PO (05:33)
[2022-03-10] MEDS: Losartan Potassium 100 MG Tablet PO (05:33)
[2022-03-10] MEDS: Atenolol 25 MG Tablet PO (05:33)
[2022-03-10] MEDS: Pramipexole Di-HCl 0.125 MG Tablet PO ×4 (05:33→20:23)
[2022-03-10] MEDS: Furosemide 20 MG Tablet 10 MG PO (05:34)
[2022-03-10] MEDS: Ferrous Sulfate 325 MG Tablet PO (07:49)
[2022-03-10] MEDS: Gabapentin 100 MG Capsule PO ×3 (07:49→18:09)
[2022-03-10] MEDS: Calcium Carb/Vitamin D 1 TABLET Tablet PO ×2 (07:50→18:09)
[2022-03-10 07:54] VITALS: BP 135/66; PULSE 77
[2022-03-10 11:13] VITALS: BP 148/50; PULSE 66; RESP 16; TEMP 36.5; O2SAT 95
[2022-03-10] MEDS: amLODIPine 5 MG Tablet PO (11:15)
[2022-03-10] MEDS: Senna/Docusate Sodium 1 Tablet 2 TABLET PO (18:10)
[2022-03-10] MEDS: Magnesium Chloride 64 MG Delay Rel.Tablet 128 MG PO (20:22)
[2022-03-10 20:25] VITALS: BP 156/49; PULSE 70
[2022-03-10] MEDS: Atenolol 50 MG Tablet PO (20:26)
--- NOTE | 2022-03-11 03:07 | NURSING ---
Reviewed lab orders and noted CBC w/ Diff and BMP ordered for 03/10 at 0555 remain on work list. Last set of above noted labs on 03/03. Phone call placed to lab and spoke w/ Aruna. She notes CBC w/ Diff and BMP did not flag on their end to be drawn on 03/10, only the INR. Aruna notes someone on TCU may have changed the date as there are labels printed for the BMP and CBC w/ Diff to be drawn this am w/ an INR.
[2022-03-11] MEDS: Atenolol 25 MG Tablet PO (05:11)
[2022-03-11] MEDS: Furosemide 20 MG Tablet 10 MG PO (05:11)
[2022-03-11] MEDS: Losartan Potassium 100 MG Tablet PO (05:12)
[2022-03-11] MEDS: Pramipexole Di-HCl 0.125 MG Tablet PO ×4 (05:12→20:28)
[2022-03-11] MEDS: Polyethylene Glycol 3350 17 GM PACKET PO (05:12)
[2022-03-11] MEDS: Senna/Docusate Sodium 1 Tablet 2 TABLET PO ×2 (05:12→17:50)
[2022-03-11] MEDS: Cholecalciferol (VIT D3) 25 MCG TABLET (1,000 UNITS) PO (05:12)
[2022-03-11 06:01] LABS: Absolute Lymphocyte Count 2.09 X10^3/uL (0.83-4.51); Absolute Neutrophil Count 3.8 X10^3/uL (2.0-7.7); Basophil# 0.08 X10^3/uL; Basophil% 1.1 % (0-1); Eosinophil# 0.23 X10^3/uL; Eosinophils% 3.2 % (0-5); Hematocrit 37.1 % (37-47); Hemoglobin 11.6 g/dL (12.0-15.0); Lymphocyte # 2.09 X10^3/ul (0.83-4.51); Lymphocyte % 29.4 % (19-41); Mean Corp Hgb Conc 31.3 g/dL (32-36); Mean Corpuscular Hgb 30.1 pg (27.0-32.0); Mean Corpuscular Volume 96.4 fL (81-99); Mean Platelet Vol. 9.2 fl (6.2-12.0); Monocyte# 0.73 X10^3/uL; Monocyte% 10.3 % (0-10); NRBC Flagged by Analyzer 0 % (0-5); Neutrophil % 53.6 % (47-70); Platelet Count 354 K/mm3 (150-450); RBC Distribution Width CV 13.7 % (11.6-14.6); RBC Distribution Width SD 49.4 fl (35.1-43.9); Red Blood Count 3.85 M/mm3 (4.2-5.4); White Blood Count 7.1 K/mm3 (4.4-11.0)
[2022-03-11 06:29] LABS: Anion Gap 5 (5-15); BUN 23 mg/dL (7-18); BUN/Creat Ratio 27.1 RATIO (10-20); Calcium,Total 9.5 mg/dL (8.5-10.1); Chloride 102 mmol/L (98-107); Creatinine, Serum 0.85 mg/dL (0.55-1.02); EST Glomerular Filtration Rate 68 mL/min (>60); Est Glom Filt Rate - Afr Amer 82 mL/min (>60); Estimated Creatinine Clearance 36.51 ml/min; Glucose 110 mg/dL (74-106); Potassium 3.8 mmol/L (3.5-5.1); Sodium Level 139 mmol/L (136-145)
[2022-03-11 06:36] LABS: International Normalized Ratio 2.9; Prothrombin Time (Protime)PT. 30.1 SECONDS (11.7-14.9)
[2022-03-11 06:51] VITALS: BP 157/53; PULSE 65
[2022-03-11] MEDS: Gabapentin 100 MG Capsule PO ×3 (08:26→17:48)
[2022-03-11] MEDS: Ferrous Sulfate 325 MG Tablet PO (08:26)
[2022-03-11] MEDS: Calcium Carb/Vitamin D 1 TABLET Tablet PO ×2 (08:26→17:50)
[2022-03-11] MEDS: amLODIPine 5 MG Tablet PO (11:18)
[2022-03-11 11:23] VITALS: BP 144/50; PULSE 63
[2022-03-11] MEDS: HYDROcodone Bitartrate/Apap 5/325 Tablet PO ×2 (11:30→22:22)
[2022-03-11 13:51] VITALS: BP 110/50; PULSE 66; RESP 16; TEMP 36.5; O2SAT 92
[2022-03-11] MEDS: Atenolol 50 MG Tablet PO (20:27)
[2022-03-11] MEDS: Magnesium Chloride 64 MG Delay Rel.Tablet 128 MG PO (20:28)
[2022-03-11 20:31] VITALS: BP 171/62; PULSE 75
[2022-03-12 06:10] LABS: Prothrombin Time (Protime)PT. 30.6 SECONDS (11.7-14.9)
[2022-03-12] MEDS: Furosemide 20 MG Tablet 10 MG PO (06:50)
[2022-03-12] MEDS: Senna/Docusate Sodium 1 Tablet 2 TABLET PO ×2 (06:50→17:40)
[2022-03-12] MEDS: Atenolol 25 MG Tablet PO (06:50)
[2022-03-12] MEDS: Pramipexole Di-HCl 0.125 MG Tablet PO ×4 (06:50→22:24)
[2022-03-12] MEDS: Losartan Potassium 100 MG Tablet PO (06:50)
[2022-03-12] MEDS: Cholecalciferol (VIT D3) 25 MCG TABLET (1,000 UNITS) PO (06:51)
--- NOTE | 2022-03-12 06:53 | NURSING ---
Patient up almost every hour having to urinate. Denies any pain or burning. States, I don't feel like I am emptying it all out. Note left for Dr. Marshall.
[2022-03-12] MEDS: Calcium Carb/Vitamin D 1 TABLET Tablet PO ×2 (07:54→17:40)
[2022-03-12] MEDS: Ferrous Sulfate 325 MG Tablet PO (07:54)
[2022-03-12] MEDS: Gabapentin 100 MG Capsule PO ×3 (07:54→17:40)
[2022-03-12] MEDS: HYDROcodone Bitartrate/Apap 5/325 Tablet PO (09:35)
[2022-03-12] MEDS: amLODIPine 5 MG Tablet PO (11:45)
[2022-03-12 14:00] VITALS: BP 130/61; PULSE 70; RESP 18; TEMP 36.6; O2SAT 93
--- NOTE | 2022-03-12 16:01 | CASEMGMT ---
Addendum entered by Karolina Desir 03/14/22 09:43: [facility] can accept. Sent order and DC paperwork via [facility] Addendum entered by Karolina Desir 03/13/22 12:56: Pt prefers [facility] as first choice. Referral made via [facility] Addendum entered by Karolina Desir 03/13/22 09:13: Received call from pt's niletty, whom is requesting to postpone DC until 03/18. Niece stated she will be in town over the weekend and needs to get pt's house ready for homegoing. IDT agreeable. Niletty expressed concern with car transfers and steps into home. SW offered to have therapy practice a car transfer with zach on Friday and assured pt can complete steps. Niece requested to take pt home to practice steps. SW to ask for PAT. Dianeletty appreciative. SW notified therapy and IDT of changes and requests. SW spoke with pt about changes. Pt agreeable and appreciative. Plan: DC 03/18, [facility] PT/OT Original Note: Social Work Discussed with IDT on setting DC date. Pt is adlib in room. SW spoke with pt. Pt agreeable to DC and requesting 03/15 with [facility]. Provided list of skilled [facility] agencies with quality and resource data via [facility] Guide. Pt to review and notify this worker of choice. Friend can transport at 1100. No DME needs. Plan: DC home alone 03/15, [facility] PT/OT. RENO Snell
--- NOTE | 2022-03-12 19:25 | DS.PCM_ITS ---
Providers Date of Admission: 02/16/22 Primary Care Physician: Dr. Doyle Swenson MD Reason For Visit: KYPHOPLASTY Diagnosis Discharge Diagnosis (1) Debility: Status: Acute Code(s): R53.81 - Other malaise (2) Intractable low back pain: Status: Acute Code(s): M54.59 - Other low back pain (3) Compression fracture of L3 vertebra: Status: Acute Code(s): S32.030A - Wedge compression fracture of third lumbar vertebra, initial encounter for closed fracture (4) Atrial fibrillation: Status: Acute Code(s): I48.91 - Unspecified atrial fibrillation (5) Vitamin D deficiency: Status: Acute Code(s): E55.9 - Vitamin D deficiency, unspecified (6) Hypertension: Status: Chronic Code(s): I10 - Essential (primary) hypertension (7) Osteoporosis: Status: Acute Code(s): M81.0 - Age-related osteoporosis without current pathological fracture (8) Hypomagnesemia: Status: Acute Code(s): E83.42 - Hypomagnesemia (9) Iron deficiency anemia: Status: Acute Code(s): D50.9 - Iron deficiency anemia, unspecified (10) Edema: Status: Acute Code(s): R60.9 - Edema, unspecified (11) Restless leg syndrome: Status: Acute Code(s): G25.81 - Restless legs syndrome Plan 86 year old female with below past medical history hospitalized for intractable back pain secondary to L3 compression fracture, underwent kyphoplasty 02/15/[address] Gardner, admitted to TCU with debility, here for rehabilitation, strengthening, prior to discharge home alone. * Debility - PT/OT. * Pain - Tylenol 500mg q6h prn pain (1-3), [place] 5/325mg 1 tablet q4h prn pain (4-10). * Bowel - Miralax 17gm daily, senna/colace 2 tablets bid. * Adult immunization - Administer pneumonia vaccine, covid19 vaccine, flu vaccine as appropriate. * DVT prophylaxis - Hold, on warfarin. * Hypertension - Atenolol 25mg am, 50mg pm, Amlodipine 5mg daily. * Atrial fibrillation - Atenolol 25mg am, 50mg pm, warfarin 3mg 2 days/week, 4mg 5 days/week. * Calcium deficiency - Calcium D bid. * Iron deficiency anemia - Ferrous sulfate 325mg daily. * Edema - Furosemide 10mg daily. * Hypomagnesemia - Magnesium 420mg qhs. * Insomnia - Melatonin 3mg qhs prn. * Restless Leg syndrome - Ropinirole 0.25mg 4x/day. * Vitamin D deficiency - D3 25mcg daily. * Left lumbar radiculopathy - gabapentin 100mg tid prn. * Left lower extremity edema - Doppler ultrasound left lower extremity. Medications at Discharge Home Medications cholecalciferol (vitamin D3) 25 mcg (1,000 unit) capsule 1,000 unit PO DAILY supplement 12/25/16 losartan 100 mg tablet 100 mg PO DAILY HTN 03/18/18 denosumab 60 mg/mL subcutaneous syringe (Prolia) 60 mg subcut [id number] osteoporosis 10/08/19 amlodipine 5 mg tablet 5 mg PO DAILY HTN 05/01/21 calcium carb-ergocalciferol (vit D2) 600 mg calcium-200 unit tablet 1 tab PO BID supplement 07/24/21 magnesium oxide 420 mg tablet 420 mg PO QHS supplement 07/24/21 ferrous sulfate 325 mg (65 mg iron) tablet 325 mg PO DAILY supplement 11/22/21 acetaminophen 500 mg tablet 500 mg PO Q6H PRN Pain 01/01/22 atenolol 25 mg tablet 25 mg PO QAM HTN 01/01/22 atenolol 50 mg tablet 50 mg PO QPM HTN 01/01/22 furosemide 20 mg tablet 10 mg PO DAILY diuretic 01/01/22 ropinirole 0.5 mg tablet 0.25 mg PO 4X/DAY restless legs 01/01/22 polyethylene glycol 3350 17 gram oral powder packet (Miralax) 17 g PO DAILY constipation 02/09/22 melatonin 3 mg tablet 3 mg PO QHS PRN PRN Insomnia #0 tabs 02/11/22 sennosides 8.6 mg-docusate sodium 50 mg tablet (Stool Softener-Stimulant Laxative) 2 tab PO BID stool softener 02/16/22 warfarin 3 mg tablet 3 mg PO TUTH afib 02/16/22 warfarin 4 mg tablet 4 mg PO SUMOWEFRSA afib 02/16/22 gabapentin 100 mg capsule 100 mg PO 0800,1200,1800 30 days #90 caps 03/12/22 hydrocodone-acetaminophen 5-325mg 5mg-325mg 1 tab PO Q4H PRN PRN pain 4-5 3 days #18 tabs 03/12/22 Hospital Course Operations None Procedures - (02/15/2022 Kyphoplasty.) Summary of Care Provided Minutes Spent on Discharge: 35 Hospital Course: 86 year old female with below past medical history hospitalized for intractable back pain secondary to L3 compression fracture, underwent kyphoplasty 02/15/[address] Gardner, admitted to TCU with debility, here for rehabilitation, strengthening, prior to discharge home alone. Discharge home alone 03/15/2022, [facility] PT/OT. Weight / BMI Weight Weight: 78.653 kg Body Mass Index (BMI) 33.7 ABG / Lab / Microbiology Data Result Diagrams: 03/11/22 05:36 03/11/22 05:36 Laboratory: Laboratory Results - last 24 hr 03/12/22 05:26: PT 30.6 H, INR 3.0 Microbiology: Microbiology 02/18/22 10:40 Nasal Secretion SARS-CoV-2 Antigen (Rapid) - Final 02/16/22 15:07 Nasal Secretion SARS-CoV-2 Antigen (Rapid) - Final D/C Instructions Discharge Diet: No restrictions Discharge Activity: Return to Normal Activity, May Shower and Use Walker Weight Bearing Status: Weight bearing as tolerated Call your doctor if you observe: Fever of 101 or Higher, Inability to urinate, Inability to have a bowel movement, Shortness of breath, Dizziness, Fainting spells, Swelling in the ankles, Chest pain and Uncontrolled pain Additional Instructions: Discharge home alone 03/15/2022, Home [facility] Care PT/OT. Meaningful Use Info Meaningful Use Diagnoses (Choose all that apply): None applicable Discharge Plan Admission Admit Date/Time: 02/16/22 11:29 Primary Reason for Your Visit: Debility. Attending Provider: Aleks Marshall Chi Primary Care Provider: Doyle Swenson Instructions Additional Instructions / Restrictions: Discharge home alone 03/15/2022, Home Health Care PT/OT. Discharge Orders/Prescriptions Prescriptions: New gabapentin 100 mg Capsule 100 mg PO 0800,1200,1800 30 Days Qty: 90 0RF Continued Prolia 60 mg/mL syringe 60 mg SC [id number] Label Comments: due February Rx Instructions: due in february amlodipine 5 mg tablet 5 mg PO DAILY ropinirole 0.5 mg tablet 0.25 mg PO 4X/DAY atenolol 25 mg tablet 25 mg PO QAM Label Comments: TAKE 1 TABLET BY MOUTH IN THE MORNING atenolol 50 mg tablet 50 mg PO QPM ferrous sulfate 325 mg (65 mg iron) tablet 325 mg PO DAILY cholecalciferol (vitamin D3) 1,000 UNIT capsule 1,000 unit PO DAILY acetaminophen 500 mg tablet 500 mg PO Q6H PRN (Reason: Pain) losartan 100 MG tablet 100 mg PO DAILY magnesium oxide 420 mg tablet 420 mg PO QHS Label Comments: TAKE 1 TABLET BY MOUTH ONCE DAILY calcium carbonate-vitamin D2 600 mg calcium- 200 unit Tablet 1 tab PO BID furosemide 20 mg tablet 10 mg PO DAILY Label Comments: TAKE 1 TABLET BY MOUTH IN THE MORNING polyethylene glycol 3350 [Miralax] 17 gram Powder In Packet 17 g PO DAILY melatonin 3 mg Tablet 3 mg PO QHS PRN PRN (Reason: Insomnia) Qty: 0 0RF warfarin 4 mg Tablet 4 mg PO SUMOWEFRSA warfarin 3 mg Tablet 3 mg PO TUTH sennosides-docusate sodium [Stool Softener-Stimulant Laxat] 8.6-50 mg tablet 2 tab PO BID hydrocodone-acetaminophen 5-325 mg Tablet 1 tab PO Q4H PRN PRN (Reason: pain 4-5) 3 Days Qty: 18 0RF Discontinued cyclobenzaprine 5 mg tablet 5 mg PO TID PRN (Reason: muscle spasm) Qty: 20 0RF warfarin 3 mg Tablet 3 mg PO DAILY aspirin 81 mg Tablet,Chewable 81 mg PO DAILY Referrals / Follow Up: Doyle Swenson MD [Primary Care Provider] - Disposition Disposition (needs filled in before D/C Order can be placed): Home Health Service
[2022-03-12] MEDS: Acetaminophen 500 MG Tablet PO (19:28)
[2022-03-12 19:32] VITALS: PULSE 75; RESP 16
[2022-03-12] MEDS: Magnesium Chloride 64 MG Delay Rel.Tablet 128 MG PO (22:24)
[2022-03-12] MEDS: Atenolol 50 MG Tablet PO (22:24)
[2022-03-13 05:56] LABS: International Normalized Ratio 2.7; Prothrombin Time (Protime)PT. 28.1 SECONDS (11.7-14.9)
[2022-03-13] MEDS: Furosemide 20 MG Tablet 10 MG PO (06:27)
[2022-03-13] MEDS: Pramipexole Di-HCl 0.125 MG Tablet PO ×4 (06:28→20:59)
[2022-03-13] MEDS: Cholecalciferol (VIT D3) 25 MCG TABLET (1,000 UNITS) PO (06:28)
[2022-03-13] MEDS: Senna/Docusate Sodium 1 Tablet 2 TABLET PO ×2 (06:28→17:22)
[2022-03-13] MEDS: Atenolol 25 MG Tablet PO (06:28)
[2022-03-13] MEDS: Losartan Potassium 100 MG Tablet PO (06:29)
[2022-03-13] MEDS: Polyethylene Glycol 3350 17 GM PACKET PO (06:29)
[2022-03-13] MEDS: Gabapentin 100 MG Capsule PO ×3 (08:02→17:22)
[2022-03-13] MEDS: HYDROcodone Bitartrate/Apap 5/325 Tablet PO ×2 (08:06→17:22)
[2022-03-13] MEDS: Ferrous Sulfate 325 MG Tablet PO (08:06)
[2022-03-13] MEDS: Calcium Carb/Vitamin D 1 TABLET Tablet PO ×2 (08:06→17:18)
[2022-03-13] MEDS: amLODIPine 5 MG Tablet PO (12:32)
[2022-03-13 12:37] VITALS: BP 156/59; PULSE 61
[2022-03-13 14:00] VITALS: BP 120/42; PULSE 64; RESP 15; TEMP 36.7; O2SAT 97
[2022-03-13] MEDS: Magnesium Chloride 64 MG Delay Rel.Tablet 128 MG PO (20:58)
[2022-03-13] MEDS: Atenolol 50 MG Tablet PO (20:59)
[2022-03-14 06:05] LABS: International Normalized Ratio 2.6; Prothrombin Time (Protime)PT. 27.5 SECONDS (11.7-14.9)
[2022-03-14] MEDS: Polyethylene Glycol 3350 17 GM PACKET PO (06:12)
[2022-03-14] MEDS: Furosemide 20 MG Tablet 10 MG PO (06:13)
[2022-03-14] MEDS: Losartan Potassium 100 MG Tablet PO (06:14)
[2022-03-14] MEDS: Cholecalciferol (VIT D3) 25 MCG TABLET (1,000 UNITS) PO (06:14)
[2022-03-14] MEDS: Atenolol 25 MG Tablet PO (06:14)
[2022-03-14] MEDS: Pramipexole Di-HCl 0.125 MG Tablet PO ×4 (06:14→21:59)
[2022-03-14] MEDS: Senna/Docusate Sodium 1 Tablet 2 TABLET PO (06:14)
[2022-03-14] MEDS: Calcium Carb/Vitamin D 1 TABLET Tablet PO ×2 (08:48→18:00)
[2022-03-14] MEDS: Gabapentin 100 MG Capsule PO ×3 (08:48→18:00)
[2022-03-14] MEDS: Ferrous Sulfate 325 MG Tablet PO (08:49)
[2022-03-14] MEDS: HYDROcodone Bitartrate/Apap 5/325 Tablet PO ×2 (08:51→13:37)
[2022-03-14] MEDS: Acetaminophen 500 MG Tablet PO (13:30)
[2022-03-14] MEDS: amLODIPine 5 MG Tablet PO (13:31)
[2022-03-14 14:00] VITALS: BP 140/60; PULSE 68; RESP 16; TEMP 36.2; O2SAT 94
[2022-03-14] MEDS: Atenolol 50 MG Tablet PO (21:59)
[2022-03-14] MEDS: Magnesium Chloride 64 MG Delay Rel.Tablet 128 MG PO (21:59)
[2022-03-14 22:00] VITALS: PULSE 68; RESP 16; O2SAT 97
[2022-03-15] MEDS: Atenolol 25 MG Tablet PO (04:55)
[2022-03-15] MEDS: Senna/Docusate Sodium 1 Tablet 2 TABLET PO ×2 (04:55→18:18)
[2022-03-15] MEDS: Losartan Potassium 100 MG Tablet PO (04:56)
[2022-03-15] MEDS: Pramipexole Di-HCl 0.125 MG Tablet PO ×4 (04:56→21:28)
[2022-03-15] MEDS: Furosemide 20 MG Tablet 10 MG PO (04:56)
[2022-03-15] MEDS: Cholecalciferol (VIT D3) 25 MCG TABLET (1,000 UNITS) PO (04:56)
[2022-03-15] MEDS: Gabapentin 100 MG Capsule PO ×3 (08:56→18:17)
[2022-03-15] MEDS: Calcium Carb/Vitamin D 1 TABLET Tablet PO ×2 (08:56→18:18)
[2022-03-15] MEDS: HYDROcodone Bitartrate/Apap 5/325 Tablet PO (08:56)
[2022-03-15] MEDS: Ferrous Sulfate 325 MG Tablet PO (08:56)
[2022-03-15] MEDS: amLODIPine 5 MG Tablet PO (13:46)
[2022-03-15] MEDS: Acetaminophen 500 MG Tablet PO ×2 (13:46→21:28)
[2022-03-15 14:00] VITALS: BP 136/60; PULSE 63; RESP 16; TEMP 36.2; O2SAT 95
[2022-03-15] MEDS: Magnesium Chloride 64 MG Delay Rel.Tablet 128 MG PO (21:28)
[2022-03-15] MEDS: Atenolol 50 MG Tablet PO (21:28)
[2022-03-16] MEDS: Atenolol 25 MG Tablet PO (06:45)
[2022-03-16] MEDS: Losartan Potassium 100 MG Tablet PO (06:45)
[2022-03-16] MEDS: Pramipexole Di-HCl 0.125 MG Tablet PO ×4 (06:45→21:30)
[2022-03-16] MEDS: Furosemide 20 MG Tablet 10 MG PO (06:45)
[2022-03-16] MEDS: Senna/Docusate Sodium 1 Tablet 2 TABLET PO ×2 (06:46→18:16)
[2022-03-16] MEDS: Cholecalciferol (VIT D3) 25 MCG TABLET (1,000 UNITS) PO (06:46)
[2022-03-16] MEDS: Acetaminophen 500 MG Tablet PO (06:58)
[2022-03-16] MEDS: Ferrous Sulfate 325 MG Tablet PO (08:45)
[2022-03-16] MEDS: Calcium Carb/Vitamin D 1 TABLET Tablet PO ×2 (08:45→18:16)
[2022-03-16] MEDS: Gabapentin 100 MG Capsule PO ×3 (08:45→18:18)
[2022-03-16 09:27] VITALS: PULSE 69; RESP 16; O2SAT 94
[2022-03-16] MEDS: HYDROcodone Bitartrate/Apap 5/325 Tablet PO (11:20)
[2022-03-16] MEDS: amLODIPine 5 MG Tablet PO (11:59)
[2022-03-16 12:01] VITALS: BP 154/61; PULSE 61; RESP 16; TEMP 36.3; O2SAT 94
--- NOTE | 2022-03-16 13:37 | NURSING ---
pt off unit for PAT with family at 1230. Also had car transfer training with therapy before leaving.
--- NOTE | 2022-03-16 16:12 | NURSING ---
pt returned from PAT via
[2022-03-16 21:00] VITALS: BP 171/54; PULSE 67; RESP 16
[2022-03-16] MEDS: Atenolol 50 MG Tablet PO (21:30)
[2022-03-16] MEDS: Magnesium Chloride 64 MG Delay Rel.Tablet 128 MG PO (21:30)
[2022-03-17] MEDS: Polyethylene Glycol 3350 17 GM PACKET PO (04:48)
[2022-03-17] MEDS: Furosemide 20 MG Tablet 10 MG PO (04:48)
[2022-03-17] MEDS: Senna/Docusate Sodium 1 Tablet 2 TABLET PO ×2 (04:49→16:26)
[2022-03-17] MEDS: Losartan Potassium 100 MG Tablet PO (04:49)
[2022-03-17] MEDS: Atenolol 25 MG Tablet PO (04:50)
[2022-03-17] MEDS: Pramipexole Di-HCl 0.125 MG Tablet PO ×4 (04:51→21:44)
[2022-03-17] MEDS: Cholecalciferol (VIT D3) 25 MCG TABLET (1,000 UNITS) PO (04:51)
[2022-03-17 05:02] VITALS: BP 165/53; PULSE 67; RESP 16
[2022-03-17 05:26] LABS: Absolute Lymphocyte Count 2.46 X10^3/uL (0.83-4.51); Absolute Neutrophil Count 5.3 X10^3/uL (2.0-7.7); Basophil# 0.06 X10^3/uL; Basophil% 0.7 % (0-1); Eosinophil# 0.15 X10^3/uL; Eosinophils% 1.7 % (0-5); Hematocrit 39.3 % (37-47); Hemoglobin 12.6 g/dL (12.0-15.0); Lymphocyte # 2.46 X10^3/ul (0.83-4.51); Lymphocyte % 28.2 % (19-41); Mean Corp Hgb Conc 32.1 g/dL (32-36); Mean Corpuscular Hgb 29.8 pg (27.0-32.0); Mean Corpuscular Volume 92.9 fL (81-99); Mean Platelet Vol. 9.7 fl (6.2-12.0); Monocyte# 0.66 X10^3/uL; Monocyte% 7.6 % (0-10); NRBC Flagged by Analyzer 0 % (0-5); Neutrophil # 5.34 X10^3/uL (2.7-7.7); Neutrophil % 61.1 % (47-70); Platelet Count 335 K/mm3 (150-450); RBC Distribution Width CV 13.8 % (11.6-14.6); RBC Distribution Width SD 47.2 fl (35.1-43.9); Red Blood Count 4.23 M/mm3 (4.2-5.4); White Blood Count 8.7 K/mm3 (4.4-11.0)
[2022-03-17 05:35] LABS: International Normalized Ratio 2.5; Prothrombin Time (Protime)PT. 26.7 SECONDS (11.7-14.9)
[2022-03-17 05:40] LABS: Anion Gap 6 (5-15); BUN 17 mg/dL (7-18); Calcium,Total 9.7 mg/dL (8.5-10.1); Chloride 105 mmol/L (98-107); Creatinine, Serum 0.77 mg/dL (0.55-1.02); EST Glomerular Filtration Rate 75 mL/min (>60); Est Glom Filt Rate - Afr Amer 91 mL/min (>60); Estimated Creatinine Clearance 31.04 ml/min; Glucose 89 mg/dL (74-106); Potassium 4.2 mmol/L (3.5-5.1); Sodium Level 138 mmol/L (136-145)
[2022-03-17] MEDS: Ferrous Sulfate 325 MG Tablet PO (08:02)
[2022-03-17] MEDS: Calcium Carb/Vitamin D 1 TABLET Tablet PO ×2 (08:02→16:26)
[2022-03-17] MEDS: Gabapentin 100 MG Capsule PO ×3 (08:02→16:26)
[2022-03-17 10:00] VITALS: PULSE 67; RESP 18; O2SAT 96
[2022-03-17] MEDS: HYDROcodone Bitartrate/Apap 5/325 Tablet PO ×2 (10:16→18:56)
[2022-03-17] MEDS: amLODIPine 5 MG Tablet PO (12:15)
[2022-03-17 12:17] VITALS: BP 137/48; PULSE 67; RESP 18; TEMP 36.8; O2SAT 97
[2022-03-17] MEDS: Magnesium Chloride 64 MG Delay Rel.Tablet 128 MG PO (21:45)
[2022-03-17] MEDS: Atenolol 50 MG Tablet PO (21:46)
[2022-03-18 06:50] VITALS: BP 156/47; PULSE 66
[2022-03-18] MEDS: Cholecalciferol (VIT D3) 25 MCG TABLET (1,000 UNITS) PO (06:52)
[2022-03-18] MEDS: Polyethylene Glycol 3350 17 GM PACKET PO (06:52)
[2022-03-18] MEDS: Losartan Potassium 100 MG Tablet PO (06:53)
[2022-03-18] MEDS: Pramipexole Di-HCl 0.125 MG Tablet PO ×2 (06:53→12:08)
[2022-03-18] MEDS: Atenolol 25 MG Tablet PO (06:53)
[2022-03-18] MEDS: Furosemide 20 MG Tablet 10 MG PO (06:54)
[2022-03-18] MEDS: Senna/Docusate Sodium 1 Tablet 2 TABLET PO (06:55)
--- NOTE | 2022-03-18 07:50 | NURSING ---
Left vm for Karolina HARTMAN, maria t update on pt's request to speak w/ her prior to dc today. Has several questions about skilled HH and was able to answer her questions regarding qualifications for services. Emotional support an reassurance provided.
[2022-03-18] MEDS: Ferrous Sulfate 325 MG Tablet PO (08:08)
[2022-03-18] MEDS: Calcium Carb/Vitamin D 1 TABLET Tablet PO (08:08)
[2022-03-18] MEDS: HYDROcodone Bitartrate/Apap 5/325 Tablet PO ×2 (08:09→12:59)
[2022-03-18] MEDS: Gabapentin 100 MG Capsule PO ×2 (08:14→12:07)
--- NOTE | 2022-03-18 11:41 | CASEMGMT ---
Social Work Brief interview for mental status (BIMS) and resident mood assessment (PHQ-9) completed on this day. BIMS score . PHQ-9 score 10/05. Augusto BOJORQUEZ, CLAUS
[2022-03-18] MEDS: amLODIPine 5 MG Tablet PO (12:08)
[2022-03-18 14:05] VITALS: BP 135/46; PULSE 73; RESP 16; TEMP 36.2; O2SAT 99
--- NOTE | 2022-03-18 14:06 | NURSING ---
Pt D/c home at 1310 with neighbor. Went over medications and next doses. Denies further questions. Discussed f/u appt. Transferred to car per w/c.
== END 2022-03-18 13:10 | disposition home health service (06) | DRG 561 ==
PROVIDERS: Admitting Provider Family Medicine Geriatric Medicine; PCP Family Medicine; Visit Provider Family Medicine Geriatric Medicine
DX: M48.56XD Collapsed vertebra, not elsewhere classified, lumbar region, subsequent encounter for fracture with routine healing (principal); I27.21 Secondary pulmonary arterial hypertension; I48.0 Paroxysmal atrial fibrillation; D50.9 Iron deficiency anemia, unspecified; E55.9 Vitamin D deficiency, unspecified; G25.81 Restless legs syndrome; I10 Essential (primary) hypertension; M54.16 Radiculopathy, lumbar region; G47.33 Obstructive sleep apnea (adult) (pediatric); Z79.82 Long term (current) use of aspirin; Z79.899 Other long term (current) drug therapy; E66.9 Obesity, unspecified; Z68.33 Body mass index [BMI] 33.0-33.9, adult; Z79.01 Long term (current) use of anticoagulants
CPT/HCPCS: 0134A; 36415; 80048; 85025; 85610; 87811; 91313; 92610; 97110; 97116; 97162; 97165; 97530; 97535; 97802

== ENCOUNTER → 2022-02-18 | Outpatient (CLI) | payer MEDICARE, BC, SELFPAY ==
--- NOTE | 2022-02-18 10:53 | VDLE_ITS ---
Reason For Study: LEG PAIN RIGHT LEFT CFV is compressible, spontaneous, phasic, GSV is normal. competent and demonstrates normal CFV is compressible, spontaneous, phasic, augmentation. competent, and demonstrates normal Procedure augmentation. This is a venous duplex using B-mode, color FV is compressible, spontaneous, phasic, flow and spectral Doppler. competent and demonstrates normal Exam performed portable in patient room. augmentation. The exam was diagnostic. POP V is compressible, spontaneous, phasic, A preliminary report was called and/or faxed competent and demonstrates normal to TCU RN. augmentation. T/P Trunk is compressible. PTV is compressible. LT PerV is compressible. VL/Venous Duplex US, Unilateral Interpretation Summary Deep veins of the left lower extremity are patent and compressible segmentally. There is no evidence of left lower extremity deep vein thrombosis. The left great saphenous vein sunny ears patent and compressible segmentally. Ordering Physician: Aleks Marshall Chi Referring Physician: Hussein Swenson MD Performed By: Juancarlos Sierra RVT
== END | disposition home or self-care (01) ==
LOC: CVS 10:53
PROVIDERS: PCP Family Medicine; Referring Provider Family Medicine Geriatric Medicine; Visit Provider Family Medicine Geriatric Medicine
DX: M79.662 Pain in left lower leg (principal)
CPT/HCPCS: 93971

== ENCOUNTER → 2022-04-08 | Outpatient (CLI) | payer MEDICARE, BC, SELFPAY ==
--- NOTE | 2022-04-08 15:51 | RAD_ITS ---
STUDY: X-RAY - PELVIS AND BILATERAL HIPS REASON FOR EXAM: Female, 87 years old. Pain. TECHNIQUE: AP view of the pelvis.? 2 views of the right hip, and 2 views of the left hip were obtained. COMPARISON: June 19, 2021. FINDINGS: There is a non-specific bowel gas pattern. Normal visualized soft tissue structures. Osteopenia. Normal bilateral iliac wings, sacroiliac joints and visualized sacrum. Normal bilateral superior and inferior pubic rami. Normal pubic symphysis. Normal bilateral ischial tuberosities. Lower lumbosacral spondylosis with changes of kyphoplasty, unaltered. Moderate arthrosis of the right hip. Mild arthrosis of the left hip. 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 No other change. Electronically Signed: Andres Chauhan, at 10:24 EST ,
--- NOTE | 2022-04-08 15:51 | RAD_ITS ---
STUDY: X-RAY - LUMBAR SPINE REASON FOR EXAM: Female, 87 years old. LUMBAR COMPRESSION FRACTURE TECHNIQUE: 5 view(s) of the lumbar spine were obtained. COMPARISON: Comparison is made with prior study 02/04/2022. FINDINGS: Normal lumbar lordosis. There is a dextroscoliosis of the lumbar spine. There is a normal alignment of the vertebrae. 60% loss of height of the L3 vertebrae. There is evidence of prior vertebroplasty of the L3 vertebrae. This is new as compared to prior study. Stable retropulsion of the posterior aspect of the L3 vertebrae. Stable mild degree of bone loss of height of the L1 and L2 vertebrae. Normal disc space heights. The soft tissue structures are unremarkable. RAD/L/S Spine Min 4 Views IMPRESSION: Status post vertebroplasty of the L3 vertebrae with retropulsion of the posterior aspect of the L3 vertebrae. Electronically Signed: Chris Clark MD at 8:58 EST ,
== END | disposition home or self-care (01) ==
PROVIDERS: PCP Family Medicine; Referring Provider Family Medicine; Visit Provider Family Medicine
DX: S32.000A Wedge compression fracture of unspecified lumbar vertebra, initial encounter for closed fracture (principal); X58.XXXA Exposure to other specified factors, initial encounter; M16.0 Bilateral primary osteoarthritis of hip
CPT/HCPCS: 72110; 73521

== ENCOUNTER 2022-04-10 16:46 | Observation (INO) | payer MEDICARE, BC, SELFPAY ==
[2022-04-10 16:47] VITALS: BP 170/70; PULSE 73; RESP 18; TEMP 36.6; O2SAT 98; BMI 33.5
--- NOTE | 2022-04-10 18:56 | CT_ITS ---
STUDY: CT LUMBAR SPINE WITHOUT CONTRAST REASON FOR EXAM: Female, 87 years old. Pain, recent compression fracture RADIATION DOSAGE (If Supplied By Facility): CTDIvol = ( 23.75 ) mGy, DLP = ( 826.52 ) mGycm TECHNIQUE: The patient was scanned in a multi detector CT scanner. High resolution transaxial imaging was performed. Images were obtained from T12 to sacrum. Sagittal and coronal images were reconstructed. Individualized dose optimization techniques were used for this CT. COMPARISON: X-ray April 08, 2022 FINDINGS: Normal lumbar lordosis. There is grade 1 retrolisthesis at L2-3 There is no substantial scoliosis. There is demineralization of the vertebrae of the lumbar spine. There is L3 compression fracture with 70% loss of height and prior kyphoplasty. There is retropulsion of 0.8 cm with severe canal stenosis. There is L2 compression fracture with 40% loss of height of the superior endplate and fracture lines. There is retropulsion of 0.7 cm with moderate canal stenosis. L1-2: Normal endplates. Normal disc height and morphology. Normal bilateral facet joints. Normal central canal and bilateral lateral recesses. Normal bilateral intervertebral neural foramina. L2-3: Disc bulge and spurring. Mild facet spurring. Canal stenosis at fracture level. Mild left foraminal narrowing. L3-4: Disc bulge. Facet spurring. No canal stenosis. Mild right foraminal narrowing. L4-5: Disc bulge. Facet spurring and ligamentum flavum impression very mild canal stenosis. Neural foramina are patent. L5-S1: Disc bulge. Facet spurring. No canal stenosis. Right foraminal narrowing. Normal visualized paraspinous soft tissue structures. CT/Spine Lumbar without Contrast IMPRESSION: L3 compression fracture status post kyphoplasty. L2 compression fracture. Degenerative changes with canal stenosis and foraminal narrowing. Electronically Signed: Clint Romano MD at 20:36 EST ,
--- NOTE | 2022-04-10 19:02 | EDS_ITS ---
HPI History of Present Illness Chief Complaint: Back Informant: patient Narrative Narrative: Patient is an 87-year-old female with history of compression fracture of L3 status post vertebroplasty with Dr. Gardner on February 15, atrial fibrillation on long-term Coumadin therapy and secondary pulmonary hypertension as well as hypertension presenting with worsening back pain. Patient states she is continue to have back pain since her kyphoplasty however over the past 3 days it significantly worsened. She had x-rays 2 days ago however she does not know the results. Patient states over the past few days she had increased nausea due to her pain, her urine has been dark and she had decreased oral intake. She states today she felt she was going to pass out. She denies any fever, chest pain or difficulty breathing. She is the pain is in her lower back and radiates to her bilateral groins and to her knees. She every once a while has some numbness. She denies any bowel or bladder incontinence. She is been taking Atkins with no relief of the pain. She last had 5 mg of Atkins at 230 this afternoon. She notes she has been constipated for the past few days. No other complaints at this time. She has been told she has a chronic leukocytosis. [facility] Medical History (Updated 04/11/22 @ 01:[address] Diana Snow, DO) Abnormal CT scan Arthritis Atrial fibrillation Bleeding tendency Community acquired pneumonia COPD (chronic obstructive pulmonary disease) CPAP (continuous positive airway pressure) dependence Difficulty balancing Essential (primary) hypertension Fatigue Hiatal hernia History of stress test HTN (hypertension) Hypertensive emergency Incomplete right bundle branch block Limb weakness Migraines Multiple fractures of ribs, left side, initial encounter for closed fracture New onset a-fib Obesity Obstructive sleep apnea Paroxysmal atrial fibrillation Pneumonia Pulmonary hypertension Restless legs Scarlet fever Secondary pulmonary arterial hypertension Shoulder fracture, left Shoulder pain Sleep apnea Thyroid disease Wrist fracture, right Home Medications cholecalciferol (vitamin D3) 25 mcg (1,000 unit) capsule 1,000 unit PO DAILY supplement 12/25/16 [History Last Taken 02/09/22] losartan 100 mg tablet 100 mg PO DAILY HTN 03/18/18 [History Last Taken 02/09/22] denosumab 60 mg/mL subcutaneous syringe (Prolia) 60 mg subcut [id number] osteoporosis 10/08/19 [History Last Taken 08/24/21] amlodipine 5 mg tablet 5 mg PO DAILY HTN 05/01/21 [History Last Taken 02/09/22] calcium carb-ergocalciferol (vit D2) 600 mg calcium-200 unit tablet 1 tab PO BID supplement 07/24/21 [History Last Taken 02/09/22] magnesium oxide 420 mg tablet 420 mg PO QHS supplement 07/24/21 [History Last Taken 02/08/22] ferrous sulfate 325 mg (65 mg iron) tablet 325 mg PO DAILY supplement 11/22/21 [History Last Taken 02/09/22] acetaminophen 500 mg tablet 500 mg PO Q6H PRN Pain 01/01/22 [History Last Taken Unknown] atenolol 25 mg tablet 25 mg PO QAM HTN 01/01/22 [History Last Taken 02/09/22] atenolol 50 mg tablet 50 mg PO QPM HTN 01/01/22 [History Last Taken 02/08/22] furosemide 20 mg tablet 10 mg PO DAILY diuretic 01/01/22 [History Last Taken 02/08/22] ropinirole 0.5 mg tablet 0.25 mg PO 4X/DAY restless legs 01/01/22 [History Last Taken 02/09/22] sennosides 8.6 mg-docusate sodium 50 mg tablet (Stool Softener-Stimulant Laxative) 2 tab PO BID stool softener 02/16/22 [History Last Taken Unknown] gabapentin 100 mg capsule 100 mg PO 0800,1200,1800 30 days #90 caps 03/12/22 [Rx Last Taken Unknown] hydrocodone-acetaminophen 5-325mg 5mg-325mg 1 tab PO Q4H PRN PRN pain 4-5 3 days #18 tabs 03/12/22 [Rx Last Taken Unknown] warfarin 2 mg tablet 2 mg PO QMWF 04/10/22 [History Last Taken Unknown] warfarin 3 mg tablet 3 mg PO SUTUTHSA 04/10/22 [History Last Taken Unknown] Allergy/AdvReac Type Severity Reaction Status Date / Time cefazolin [From Ancef] Allergy Severe Swelling Verified 04/10/22 16:47 silk Allergy Intermediate itching Verified 04/10/22 16:47 beet [Beet] Allergy Hives Verified 04/10/22 16:47 cantaloupe Allergy Food Verified 04/10/22 16:47 Allergy eggplant Allergy Hives Verified 04/10/22 16:47 levofloxacin [From Levaquin] Allergy Unknown Verified 04/10/22 16:47 mold Allergy NEEDS Verified 04/10/22 16:47 FOLLOW-UP Penicillins Allergy Unknown Verified 04/10/22 16:47 tomato Allergy Food Verified 04/10/22 16:47 Allergy wheat Allergy Hives Verified 04/10/22 16:47 gabapentin [From Neurontin] AdvReac Other Verified 04/10/22 16:47 meloxicam [From Mobic] AdvReac Other Verified 04/10/22 16:47 oxycodone [From OxyIR] AdvReac Nausea Verified 04/10/22 16:47 risedronate sodium AdvReac Other Verified 04/10/22 16:47 [From Actonel] CONCENTRATES Allergy Hives Uncoded 04/10/22 16:47 fermented foods Allergy Itching Uncoded 04/10/22 16:47 Family History Other Cancer Diabetes Heart disease Surgical History H/O partial thyroidectomy History of appendectomy History of cholecystectomy History of parathyroidectomy History of thymectomy History of thyroid surgery History of tonsillectomy Hx of appendectomy Hx of bilateral cataract extraction Hx of cholecystectomy Hx of tonsillectomy Social History adopted: No household members: none [facility]: [facility] number of children: 2 current occupational status: retired current occupational exposures/hazards: No pets and animals: No leisure activities: reading and other history of recent travel: Yes ([employer] in [place]) Smoking Status: Never smoker alcohol intake: never substance use type: does not use caffeine: No ROS ROS ED Constitutional Constitutional ED: Denies chills or fever(s) Eyes Eyes: Denies change in vision ENT ENT ED: Reports other Details: dry mouth ; Denies ear pain or sore throat Cardiovascular Cardiovascular: Denies chest pain or palpitations Respiratory/Chest Respiratory/Chest: Denies dyspnea or dyspnea on exertion Gastrointestinal Gastrointestinal: Reports constipation and nausea; Denies abdominal pain or vomi ting Genitourinary Genitourinary ED: Denies dysuria or hematuria Musculoskeletal Musculoskeletal: Reports back pain; Denies arthralgias, myalgias or neck pain Integumentary Denies rash Neurologic Neurologic: Reports weakness; Denies headache(s) or paresthesias Psychiatric Psychiatric: Denies anxiety Hematologic/Lymphatic Hematologic/Lymphatic: Reports easy bleeding and easy bruising EXAM Physical Exam Const Vital Signs: 04/10/22 16:47 04/10/22 21:10 Temperature 97.8 F 97.9 F Temperature Source Temporal Temporal Pulse Rate 73 89 Respiratory Rate 18 18 Blood Pressure 170/70 H 142/59 H Blood Pressure Mean 103 86 Pulse Ox 98 93 Oxygen Delivery Method Room Air Room Air Positive well nourished and well developed General Appearance ED: well developed and NAD HEENT Reports dry mucous membranes Negative for trauma Mouth ED: Yes dry mucous membranes Mouth: dry mucous membranes Eyes PERRL and EOMs intact bilaterally Neck supple General: Negative for tenderness Resp normal respiratory effort and clear to auscultation bilaterally Cardio regular rate, regular rhythm and no murmurs GI normal to inspection, nondistended, normoactive bowel sounds and soft to palpation GI Narrative: Normal rectal tone. No fecal impaction. Palpation: tender suprapubic; Negative for guarding Back/Spine normal to inspection and no thoracic nor lumbar tenderness Back/Spine Narrative: Mild tenderness palpation at the bilateral sacroiliac joints. No midline spinal tenderness. Extremity normal to inspection Extremity Narrative: 5/5 strength with hip flexion, dorsiflexion and plantarflexion of the feet. Intact sensation. 2+ bilateral DP pulses. General Extremety ED: Negative for edema or tenderness General Extremity: Negative for edema Neuro oriented x3 and no sensory deficits noted Neuro Narrative: No saddle anesthesia. Sensorium / Orientation: alert Motor Exam: strength 5/5 throughout Psych mental status grossly normal Skin no rashes or lesions noted and no wounds MDM MDM MDM Narrative Medical decision making narrative: Patients were evaluated for worsening back pain. She is now not drinking and had an episode of what sounds like near syncope at home today. Will give IV fluids. Vital signs significant for hypertension. Patient is given IV morphine and Zofran for pain control initially. Case discussed with Dr. Gardner, as her x-ray from 2 days ago does show retropulsion of the L3 vertebrae and status post vertebroplasty. He recommends CT or MRI for further evaluation and concern for new compression fracture. Patient is given 2 doses of morphine for pain control. She does have some improvement of her pain. She has difficult time ambulating the ER. CT shows an L2 compression fracture. She is supratherapeutic on her INR. Otherwise lab work is largely unremarkable. She will be admitted for further pain control and evaluation of this compression fracture. Patient agreeable this plan of care. She is not have any acute neurologic deficits requiring emergent MRI or emergent neurosurgery intervention. Lower suspicion for epidural hematoma given her neurologic exam and chronicity of her symptoms. Lab Data Attestation: I reviewed the patient's lab results. Labs: Laboratory Results - last 24 hr 04/10/22 04/10/22 04/10/22 19:05 20:00 20:00 WBC 8.4 RBC 4.09 L Hgb 11.9 L Hct 37.5 MCV 91.7 MCH 29.1 MCHC 31.7 L RDW Std Deviation 46.0 H RDW Coeff of Tiffani 13.5 Plt Count 341 MPV 9.4 Immature Gran % (Auto) 0.700 Neut % (Auto) 77.0 H Lymph % (Auto) 14.9 L [place] % (Auto) 6.5 Eos % (Auto) 0.5 Baso % (Auto) 0.4 Absolute Neuts (auto) 6.4 Absolute Lymphs (auto) 1.24 Nucleated RBC % 0 PT INR Sodium 138 Potassium 4.1 Chloride 99 Carbon Dioxide 31.0 Anion Gap 8 BUN 17 Creatinine 0.75 Estim Creat Clear Calc 29.01 Est GFR (MDRD) Af Amer 95 Est GFR (MDRD) Non-Af 78 BUN/Creatinine Ratio 22.8 H Glucose 120 H Calcium 10.1 Total Bilirubin 0.40 AST 18 ALT 17 Alkaline Phosphatase 87 Total Protein 7.4 Albumin 3.4 Globulin 4.0 Albumin/Globulin Ratio 0.8 L Urine Color Yellow Urine Clarity Clear Urine pH 8.0 Ur Specific [place] 1.010 Urine Protein 30 H Urine Glucose (UA) Normal Urine Ketones 5 H Urine Occult Blood 10 H Urine Nitrite Negative Urine Bilirubin Negative Urine Urobilinogen Normal Ur Leukocyte Esterase 25 H Urine RBC 0 SEEN Urine WBC 0-5 SEEN Ur Squamous Epith Cells 0-5 SEEN Urine Bacteria RARE Urine Mucus 0 SEEN 04/10/22 20:00 WBC RBC Hgb Hct MCV MCH MCHC RDW Std Deviation RDW Coeff of Tiffani Plt Count MPV Immature Gran % (Auto) Neut % (Auto) Lymph % (Auto) [place] % (Auto) Eos % (Auto) Baso % (Auto) Absolute Neuts (auto) Absolute Lymphs (auto) Nucleated RBC % PT 35.0 H INR 3.5 Sodium Potassium Chloride Carbon Dioxide Anion Gap BUN Creatinine Estim Creat Clear Calc Est GFR (MDRD) Af Amer Est GFR (MDRD) Non-Af BUN/Creatinine Ratio Glucose Calcium Total Bilirubin AST ALT Alkaline Phosphatase Total Protein Albumin Globulin Albumin/Globulin Ratio Urine Color Urine Clarity Urine pH Ur Specific [place] Urine Protein Urine Glucose (UA) Urine Ketones Urine Occult Blood Urine Nitrite Urine Bilirubin Urine Urobilinogen Ur Leukocyte Esterase Urine RBC Urine WBC Ur Squamous Epith Cells Urine Bacteria Urine Mucus Radiography Diagnostic Testing: Clinical Impression(s) from Imaging Studies Lumbar Spine CT 04/10/22 18:56 IMPRESSION: L3 compression fracture status post kyphoplasty. L2 compression fracture. Degenerative changes with canal stenosis and foraminal narrowing. Electronically Signed: Clint Romano MD at 20:36 EST Reading Location ID and State: [address] [place] [address] , Service support , Discharge Plan Dx/Rx/DC Orders Clinical Impression: Closed compression fracture of L2 vertebra, Intractable low back pain, Supratherapeutic INR Disposition Disposition: Acute Care Hospital [facility] Discharge Date/Time: 04/10/22 22:30
[2022-04-10 19:19] LABS: Mucous, Urine 0 SEEN /hpf (<or=2+); Red Blood Cells-Urine 0 SEEN /hpf (0-5)
[2022-04-10 19:31] LABS: Color, Urine Yellow (Yellow); Glucose, Dipstick Normal (Normal); Ketone-Dipstick 5 mg/dl (Negative); Leukocyte Esterase-Dipstick 25 /ul (Negative); Nitrite-Dipstick Negative (Negative); Occult Blood-Urine 10 /ul (Negative); Protein-Dipstick 30 mg/dl (Negative); Urine Bilirubin Dipstick Negative (Negative); Urine Clarity Clear (Clear); Urine Urobilinogen Normal (Normal)
[2022-04-10] MEDS: 0.9% Normal Saline 1,000 ML 150 ML IV (19:42)
[2022-04-10] MEDS: Ondansetron 4 MG/2 ML Vial IV (19:43)
[2022-04-10] MEDS: Morphine 4 MG/ML Syringe IV ×2 (19:43→21:04)
[2022-04-10 20:10] LABS: Bacteria RARE /hpf (None Seen); Squamous Epithelial Cells - UA 0-5 SEEN /hpf (5-10); White Blood Cells 0-5 SEEN /hpf (0-5)
[2022-04-10 20:13] LABS: Absolute Lymphocyte Count 1.24 X10^3/uL (0.83-4.51); Absolute Neutrophil Count 6.4 X10^3/uL (2.0-7.7); Basophil# 0.03 X10^3/uL; Basophil% 0.4 % (0-1); Eosinophil# 0.04 X10^3/uL; Eosinophils% 0.5 % (0-5); Hematocrit 37.5 % (37-47); Hemoglobin 11.9 g/dL (12.0-15.0); Lymphocyte # 1.24 X10^3/ul (0.83-4.51); Lymphocyte % 14.9 % (19-41); Mean Corp Hgb Conc 31.7 g/dL (32-36); Mean Corpuscular Hgb 29.1 pg (27.0-32.0); Mean Corpuscular Volume 91.7 fL (81-99); Mean Platelet Vol. 9.4 fl (6.2-12.0); Monocyte# 0.54 X10^3/uL; Monocyte% 6.5 % (0-10); NRBC Flagged by Analyzer 0 % (0-5); Neutrophil # 6.44 X10^3/uL (2.7-7.7); Platelet Count 341 K/mm3 (150-450); RBC Distribution Width CV 13.5 % (11.6-14.6); Red Blood Count 4.09 M/mm3 (4.2-5.4); White Blood Count 8.4 K/mm3 (4.4-11.0)
[2022-04-10 20:28] LABS: International Normalized Ratio 3.5
[2022-04-10 20:29] LABS: ALB/GLOB Ratio 0.8 RATIO (0.9-2.4); AST(SGOT) 18 U/L (15-37); Alanine Aminotransfer ALT/SGPT 17 U/L (13-56); Albumin, Serum 3.4 g/dL (3.2-5.0); Alkaline Phosphatase 87 U/L (45-117); Anion Gap 8 (5-15); BUN 17 mg/dL (7-18); BUN/Creat Ratio 22.8 RATIO (10-20); Calcium,Total 10.1 mg/dL (8.5-10.1); Chloride 99 mmol/L (98-107); Creatinine, Serum 0.75 mg/dL (0.55-1.02); EST Glomerular Filtration Rate 78 mL/min (>60); Est Glom Filt Rate - Afr Amer 95 mL/min (>60); Estimated Creatinine Clearance 29.01 ml/min; Glucose 120 mg/dL (74-106); Potassium 4.1 mmol/L (3.5-5.1); Protein, Total 7.4 g/dL (6.4-8.2); Sodium Level 138 mmol/L (136-145)
[2022-04-10 21:10] VITALS: BP 142/59; PULSE 89; RESP 18; TEMP 36.6; O2SAT 93
--- NOTE | 2022-04-10 21:30 | PCM.HP.STD ---
HPI - General General Date of Admission: 04/10/22 Date of Service: 04/10/22 Chief Complaint: lower back pain HPI Narrative JOYCE SOLOMON, is a 87 F with a significant history of atrial fibrillation on Coumadin; L3 compression fracture who had a kyphoplasty in February [address] Gardner presenting with recurring excruciating progressively worsening lower back pain that started about 3 days ago. She described the pain as a feeling of being on fire. The pain radiates to her bilateral groin and into bilateral thighs where she has numbness. She reported because of the pain she is unable to eat or drink. She felt nauseous and weak. She nearly passed out because of the pain. She reported that movement aggravates the pain and lying flat makes the pain improves. Emergency department doctor reports normal rectal tone exams on examination [facility] Medical History Abnormal CT scan Arthritis Atrial fibrillation Bleeding tendency Community acquired pneumonia CPAP (continuous positive airway pressure) dependence Difficulty balancing Essential (primary) hypertension Fatigue Hiatal hernia History of stress test HTN (hypertension) Hypertensive emergency Incomplete right bundle branch block Limb weakness Migraines Multiple fractures of ribs, left side, initial encounter for closed fracture New onset a-fib Obesity Obstructive sleep apnea Paroxysmal atrial fibrillation Pneumonia Pulmonary hypertension Restless legs Scarlet fever Secondary pulmonary arterial hypertension Shoulder pain Sleep apnea Thyroid disease Home Medications cholecalciferol (vitamin D3) 25 mcg (1,000 unit) capsule 1,000 unit PO DAILY supplement 12/25/16 [History Last Taken 02/09/22] losartan 100 mg tablet 100 mg PO DAILY HTN 03/18/18 [History Last Taken 02/09/22] denosumab 60 mg/mL subcutaneous syringe (Prolia) 60 mg subcut [id number] osteoporosis 10/08/19 [History Last Taken 08/24/21] amlodipine 5 mg tablet 5 mg PO DAILY HTN 05/01/21 [History Last Taken 02/09/22] calcium carb-ergocalciferol (vit D2) 600 mg calcium-200 unit tablet 1 tab PO BID supplement 07/24/21 [History Last Taken 02/09/22] magnesium oxide 420 mg tablet 420 mg PO QHS supplement 07/24/21 [History Last Taken 02/08/22] ferrous sulfate 325 mg (65 mg iron) tablet 325 mg PO DAILY supplement 11/22/21 [History Last Taken 02/09/22] acetaminophen 500 mg tablet 500 mg PO Q6H PRN Pain 01/01/22 [History Last Taken Unknown] atenolol 25 mg tablet 25 mg PO QAM HTN 01/01/22 [History Last Taken 02/09/22] atenolol 50 mg tablet 50 mg PO QPM HTN 01/01/22 [History Last Taken 02/08/22] furosemide 20 mg tablet 10 mg PO DAILY diuretic 01/01/22 [History Last Taken 02/08/22] ropinirole 0.5 mg tablet 0.25 mg PO 4X/DAY restless legs 01/01/22 [History Last Taken 02/09/22] sennosides 8.6 mg-docusate sodium 50 mg tablet (Stool Softener-Stimulant Laxative) 2 tab PO BID stool softener 02/16/22 [History Last Taken Unknown] warfarin 3 mg tablet 3 mg PO afib 02/16/22 [History Last Taken Unknown] warfarin 4 mg tablet 2 mg PO MOWEFR afib 02/16/22 [History Last Taken Unknown] gabapentin 100 mg capsule 100 mg PO 0800,1200,1800 30 days #90 caps 03/12/22 [Rx Last Taken Unknown] hydrocodone-acetaminophen 5-325mg 5mg-325mg 1 tab PO Q4H PRN PRN pain 4-5 3 days #18 tabs 03/12/22 [Rx Last Taken Unknown] Allergy/AdvReac Type Severity Reaction Status Date / Time cefazolin [From Ancef] Allergy Severe Swelling Verified 04/10/22 16:47 silk Allergy Intermediate itching Verified 04/10/22 16:47 beet [Beet] Allergy Hives Verified 04/10/22 16:47 cantaloupe Allergy Food Verified 04/10/22 16:47 Allergy eggplant Allergy Hives Verified 04/10/22 16:47 levofloxacin [From Levaquin] Allergy Unknown Verified 04/10/22 16:47 mold Allergy NEEDS Verified 04/10/22 16:47 FOLLOW-UP Penicillins Allergy Unknown Verified 04/10/22 16:47 tomato Allergy Food Verified 04/10/22 16:47 Allergy wheat Allergy Hives Verified 04/10/22 16:47 gabapentin [From Neurontin] AdvReac Other Verified 04/10/22 16:47 meloxicam [From Mobic] AdvReac Other Verified 04/10/22 16:47 oxycodone [From OxyIR] AdvReac Nausea Verified 04/10/22 16:47 risedronate sodium AdvReac Other Verified 04/10/22 16:47 [From Actonel] CONCENTRATES Allergy Hives Uncoded 04/10/22 16:47 fermented foods Allergy Itching Uncoded 04/10/22 16:47 Family History Other Cancer Diabetes Heart disease Surgical History H/O partial thyroidectomy History of appendectomy History of cholecystectomy History of parathyroidectomy History of thymectomy History of thyroid surgery History of tonsillectomy Hx of appendectomy Hx of bilateral cataract extraction Hx of cholecystectomy Hx of tonsillectomy Social History adopted: No household members: none housing: [facility] number of children: 2 current occupational status: retired current occupational exposures/hazards: No pets and animals: No leisure activities: reading and other history of recent travel: Yes ([employer] in [place]) Smoking Status: Never smoker alcohol intake: never substance use type: does not use caffeine: No ROS ROS Narrative Pertinent positives and pertinent negatives as noted in HPI. All other systems were reviewed and are negative Vital Signs Vital Signs Vital Signs: 04/10/22 16:47 04/10/22 21:10 Temperature 97.8 F 97.9 F Temperature Source Temporal Temporal Pulse Rate 73 89 Respiratory Rate 18 18 Blood Pressure 170/70 H 142/59 H Blood Pressure Mean 103 86 Pulse Ox 98 93 Oxygen Delivery Method Room Air Room Air Weight Weight: 78.018 kg Body Mass Index (BMI) 33.5 Physical Exam Narrative Physical exam: General: Well-nourished, well-developed. Head: Normocephalic, atraumatic, no tenderness Eyes: Vision is grossly intact. EOMI ENT: Dry and cracked lips; dry membranes, no rhinorrhea Neck: Nontender, full range of motion. CVS: Regular rate and rhythm. S1-S2 present. No murmur, gallop or rub. Respiratory : clear to auscultation bilaterally, chest wall nontender, no wheezing Abdomen: Soft, nontender, nondistended, normal bowel sounds, no masses : Deferred Back: Nontender, no CVA tenderness. Extremities: Tender spinous areas of lower back. Reduced range of motion of bilateral legs. Skin: Normal color, no trauma, abrasions Neuro: Alert, oriented, cranial nerves II through XII grossly intact. Strength in bilateral legs 3 out of 5 Psychiatry: Normal mood. Normal affect. Not depressed. Not anxious. Results Lab / Micro Data Result Diagrams: 04/10/22 20:00 04/10/22 20:00 Labs: Laboratory Results - last 24 hr 04/10/22 19:05: Urine Color Yellow, Urine Clarity Clear, Urine pH 8.0, Ur Specific [place] 1.010, Urine Protein 30 H, Urine Glucose (UA) Normal, Urine Ketones 5 H, Urine Occult Blood 10 H, Urine Nitrite Negative, Urine Bilirubin Negative, Urine Urobilinogen Normal, Ur Leukocyte Esterase 25 H, Urine RBC 0 SEEN, Urine WBC 0-5 SEEN, Ur Squamous Epith Cells 0-5 SEEN, Urine Bacteria RARE, Urine Mucus 0 SEEN 04/10/22 20:00: WBC 8.4, RBC 4.09 L, Hgb 11.9 L, Hct 37.5, MCV 91.7, MCH 29.1, MCHC 31.7 L, RDW Std Deviation 46.0 H, RDW Coeff of Tiffani 13.5, Plt Count 341, MPV 9.4, Immature Gran % (Auto) 0.700, Neut % (Auto) 77.0 H, Lymph % (Auto) 14.9 L, [place] % (Auto) 6.5, Eos % (Auto) 0.5, Baso % (Auto) 0.4, Absolute Neuts (auto) 6.4, Absolute Lymphs (auto) 1.24, Nucleated RBC % 0 04/10/22 20:00: Sodium 138, Potassium 4.1, Chloride 99, Carbon Dioxide 31.0, Anion Gap 8, BUN 17, Creatinine 0.75, Estim Creat Clear Calc 29.01, Est GFR (MDRD) Af Amer 95, Est GFR (MDRD) Non-Af 78, BUN/Creatinine Ratio 22.8 H, Glucose 120 H, Calcium 10.1, Total Bilirubin 0.40, AST 18, ALT 17, Alkaline Phosphatase 87, Total Protein 7.4, Albumin 3.4, Globulin 4.0, Albumin/Globulin Ratio 0.8 L 04/10/22 20:00: PT 35.0 H, INR 3.5 Rad[address] Lum[address] Spine CT 04/10/22 18:56 IMPRESSION: L3 compression fracture status post kyphoplasty. L2 compression fracture. Degenerative changes with canal stenosis and foraminal narrowing. Electronically Signed: Clint Romano MD at 20:36 EST , Assessment & Plan Assessment/Plan (1) Lower back pain: PLAN: Plan Intractable Lower back pain Spinal lumbar CT was visualized and independently interpreted. I agree with radiologist interpretation L3 compression fracture status post kyphoplasty. L2 compression fracture. Degenerative changes with canal stenosis and foraminal narrowing Home as needed [place] and as needed Tylenol continued. Received morphine at emergency department. With reduced creatinine clearance Dilaudid IV as needed added to her regimen. Patient was on Neurontin dose which reportedly was escalated to 300 mg dose. She reports taking 200 mg dose but now does not want to take it any longer since she thinks is causing her to have tremors. Per patient request Neurontin will not be resumed while inpatient PT and OT to evaluate and treat. Dr. Gardner pain management consult. Hold home Coumadin. Trend INR. Case management consult. Dehydration With a dry mucous membranes and dry lips. Received normal saline infusion the emergency department. Hold home Lasix for now. Hypertension Stable Home blood pressure medication continued. Trend blood pressures. Atrial fibrillation Stable Atenolol continued. Coumadin held secondary to supratherapeutic INR and also for possible kyphoplasty. CKD stage IIIb Creatinine on presentation was 0.75 Stable Chronic anemia Mild Hemoglobin on presentation is 11.6 Stable DVT prophylaxis: Not indicated since INR is at 3.5 Charges/Coding Visit Charges OBSV E&M: 03112 Initial observation care L3
[2022-04-10 22:43] VITALS: BP 180/85; PULSE 94; RESP 18; TEMP 36.6; O2SAT 88; BMI 33.7
--- NOTE | 2022-04-10 22:45 | NURSING ---
pt wears CPAP @ home - O2 2L placed
[2022-04-10] MEDS: Senna/Docusate Sodium 1 Tablet 2 TABLET PO (23:18)
[2022-04-10] MEDS: MELATONIN 3 MG TABLET PO (23:18)
[2022-04-11 04:00] VITALS: BP 118/44; PULSE 80; RESP 16; TEMP 36.6; O2SAT 97
[2022-04-11] MEDS: HYDROcodone Bitartrate/Apap 5/325 Tablet PO ×3 (06:13→21:13)
[2022-04-11 06:14] LABS: International Normalized Ratio 3.4; Prothrombin Time (Protime)PT. 33.7 SECONDS (11.7-14.9)
[2022-04-11 07:51] VITALS: O2SAT 96
[2022-04-11 09:04] VITALS: BP 138/48; PULSE 65; RESP 16; TEMP 36.7; O2SAT 96
[2022-04-11] MEDS: Ferrous Sulfate 325 MG Tablet PO (09:07)
[2022-04-11] MEDS: Atenolol 25 MG Tablet PO (09:07)
[2022-04-11] MEDS: Cholecalciferol (VIT D3) 25 MCG TABLET (1,000 UNITS) PO (09:07)
[2022-04-11] MEDS: Senna/Docusate Sodium 1 Tablet 2 TABLET PO ×2 (09:07→21:11)
[2022-04-11] MEDS: Calcium Carb/Vitamin D 1 TABLET Tablet PO ×2 (09:08→21:11)
[2022-04-11] MEDS: Pramipexole Di-HCl 0.125 MG Tablet PO ×4 (09:08→21:11)
[2022-04-11] MEDS: Losartan Potassium 100 MG Tablet PO (09:08)
[2022-04-11] MEDS: amLODIPine 5 MG Tablet PO (09:09)
--- NOTE | 2022-04-11 13:26 | PN.HOSP_ITS ---
Subjective Subjective Patient seen and examined. She had no active complaints this morning. She was still having some back pain but it was improving. Review of systems otherwise negative. Objective Data Objective Data Vital Signs: Vital Signs Temp Pulse Resp BP Pulse Ox O2 Del Method O2 Flow Rate 98.0 F 65 16 138/48 H 96 Nasal Cannula 1 04/11/22 09:04 04/11/22 09:04 04/11/22 09:04 04/11/22 09:04 04/11/22 09:04 04/11/22 09:04 04/11/22 09:04 Oxygen Flow Rate (L/min) 1 Oxygen Delivery Method Nasal Cannula Weight: 172 lb 9 oz Body Mass Index (BMI) 33.7 Intake & Output: Intake and Output for Last 24 Hours 04/09/22 04/10/22 04/11/22 23:59 23:59 23:59 Intake Total 1000 / 1000 Output Total 900 / 900 Balance 1000 / 900 -900 / -900 Lab / Micro Data Result Diagrams: 04/10/22 20:00 04/10/22 20:00 Labs: Laboratory Results - last 24 hr 04/10/22 19:05: Urine Color Yellow, Urine Clarity Clear, Urine pH 8.0, Ur Specific [place] 1.010, Urine Protein 30 H, Urine Glucose (UA) Normal, Urine Ketones 5 H, Urine Occult Blood 10 H, Urine Nitrite Negative, Urine Bilirubin Negative, Urine Urobilinogen Normal, Ur Leukocyte Esterase 25 H, Urine RBC 0 SEEN, Urine WBC 0-5 SEEN, Ur Squamous Epith Cells 0-5 SEEN, Urine Bacteria RARE, Urine Mucus 0 SEEN 04/10/22 20:00: WBC 8.4, RBC 4.09 L, Hgb 11.9 L, Hct 37.5, MCV 91.7, MCH 29.1, MCHC 31.7 L, RDW Std Deviation 46.0 H, RDW Coeff of Tiffani 13.5, Plt Count 341, MPV 9.4, Immature Gran % (Auto) 0.700, Neut % (Auto) 77.0 H, Lymph % (Auto) 14.9 L, [place] % (Auto) 6.5, Eos % (Auto) 0.5, Baso % (Auto) 0.4, Absolute Neuts (auto) 6.4, Absolute Lymphs (auto) 1.24, Nucleated RBC % 0 04/10/22 20:00: Sodium 138, Potassium 4.1, Chloride 99, Carbon Dioxide 31.0, Anion Gap 8, BUN 17, Creatinine 0.75, Estim Creat Clear Calc 29.01, Est GFR (MDRD) Af Amer 95, Est GFR (MDRD) Non-Af 78, BUN/Creatinine Ratio 22.8 H, Glucose 120 H, Calcium 10.1, Total Bilirubin 0.40, AST 18, ALT 17, Alkaline Phosphatase 87, Total Protein 7.4, Albumin 3.4, Globulin 4.0, Albumin/Globulin Ratio 0.8 L 04/10/22 20:00: PT 35.0 H, INR 3.5 04/11/22 05:41: PT 33.7 H, INR 3.4 Radiography Diagnostic Testing: Radiology Impression Lumbar Spine CT 04/10/22 18:56 IMPRESSION: L3 compression fracture status post kyphoplasty. L2 compression fracture. Degenerative changes with canal stenosis and foraminal narrowing. Electronically Signed: Clint Romano MD at 20:36 EST , Physical Exam Const alert, oriented x3 and no apparent distress HEENT head/scalp atraumatic and moist oral mucous membranes Head and Scalp: normocephalic Mouth: oral and palatal mucosa normal Eyes PERRL and EOMs intact bilaterally Neck no lymphadenopathy and supple Resp normal respiratory effort, no retractions, no use of accessory muscles and clear to auscultation bilaterally Cardio regular rate, regular rhythm, S1 normal heart sound, S2 normal heart sound and no murmurs GI normal to inspection, nondistended, normoactive bowel sounds, soft to palpation, non-tender and non-distended Extremity normal to inspection Neuro oriented x3, CN's II-XII intact bilaterally, moves all extremities and no focal motor deficits Sensorium / Orientation: awake and alert Motor Exam: strength 5/5 throughout Psych affect normal Assessment & Plan Assessment/Plan (1) Debility: PLAN: Plan #Back pain and debility due to lumbar compression fracture * recently had kyphoplasty for L3 compression fracture * now has new L2 compression fracture from spinal lumbar CT. * on neurontin, dose was recently increased to 300mg; she says she doesnt want to take it anymore due to her having tremors * PT/OT on board * Dr Gardner consulted; per discussion with him today, the earliest that he can do the kyphoplasty is next Friday; patient will have to be off anticoagulation till then. * fall precautions * #Dehydration: resolved. Feels much better #Hypertension: #Atrial fibrillation: on atenolol. Coumadin on hold for possible kyphoplasty next Friday #Hypertension:on losartan and amlodipine #Osteoporosis: on denosumab and calcium supplements #Restless leg syndrome: on ropinirole DVT prophylaxis: SCDs. Charges/Coding Visit Charges OBSV E&M: 01369 Subsequent observation care L2
--- NOTE | 2022-04-11 14:17 | CASEMGMT ---
Addendum entered by Antonella Espinal 04/11/22 14:27: Received confirmation from [facility] that pt is active with PT and OT. Original Note: ALBERT NOLAN in to discuss RO form with patient. ALBERT NOLAN explained RO form, patient voiced understanding. Pt signed form and filed in chart. Pt provided with a copy of signed RO form. Patient states that she is lives in a single story house alone. She has two FWW at home. Pt states she is active with [facility] for PT and OT. Pt is unsure if she can return home with their services as she is awaiting a visit by pain management. ALBERT NOLAN to follow. Referral sent to [facility] at this time to confirm that pt is active via careport. Patient had no further questions or concerns at this time.
[2022-04-11 14:30] VITALS: BP 105/54; PULSE 71; RESP 18; TEMP 36.8; O2SAT 97
[2022-04-11 20:30] VITALS: BP 163/58; PULSE 73; RESP 16; TEMP 36.8; O2SAT 94
[2022-04-11] MEDS: Magnesium Chloride 64 MG Delay Rel.Tablet 128 MG PO (21:12)
[2022-04-11] MEDS: Atenolol 50 MG Tablet PO (21:12)
[2022-04-11] MEDS: MELATONIN 3 MG TABLET PO (21:13)
[2022-04-12 02:30] VITALS: BP 155/61; PULSE 77; RESP 16; TEMP 36.5; O2SAT 92
[2022-04-12] MEDS: HYDROcodone Bitartrate/Apap 5/325 Tablet PO ×3 (05:15→19:19)
[2022-04-12] MEDS: Ondansetron 4 MG/2 ML Vial IV (05:15)
[2022-04-12] MEDS: 0.9% Saline Lock 10 ML Syringe IV ×2 (05:17→22:24)
[2022-04-12 06:06] LABS: Absolute Lymphocyte Count 1.95 X10^3/uL (0.83-4.51); Absolute Neutrophil Count 4.2 X10^3/uL (2.0-7.7); Basophil# 0.07 X10^3/uL; Eosinophil# 0.28 X10^3/uL; Eosinophils% 3.8 % (0-5); Hematocrit 35.5 % (37-47); Lymphocyte # 1.95 X10^3/ul (0.83-4.51); Lymphocyte % 26.5 % (19-41); Mean Corpuscular Hgb 29.2 pg (27.0-32.0); Mean Corpuscular Volume 94.2 fL (81-99); Mean Platelet Vol. 9.5 fl (6.2-12.0); Monocyte# 0.77 X10^3/uL; Monocyte% 10.5 % (0-10); NRBC Flagged by Analyzer 0 % (0-5); Neutrophil # 4.24 X10^3/uL (2.7-7.7); Neutrophil % 57.5 % (47-70); Platelet Count 351 K/mm3 (150-450); RBC Distribution Width CV 13.5 % (11.6-14.6); RBC Distribution Width SD 46.5 fl (35.1-43.9); Red Blood Count 3.77 M/mm3 (4.2-5.4); White Blood Count 7.4 K/mm3 (4.4-11.0)
[2022-04-12 06:17] LABS: International Normalized Ratio 2.4; Prothrombin Time (Protime)PT. 25.6 SECONDS (11.7-14.9)
[2022-04-12 06:36] LABS: Anion Gap 8 (5-15); BUN 18 mg/dL (7-18); BUN/Creat Ratio 24.8 RATIO (10-20); Calcium,Total 9.7 mg/dL (8.5-10.1); Chloride 100 mmol/L (98-107); Creatinine, Serum 0.72 mg/dL (0.55-1.02); EST Glomerular Filtration Rate 81 mL/min (>60); Est Glom Filt Rate - Afr Amer 98 mL/min (>60); Estimated Creatinine Clearance 29.01 ml/min; Glucose 105 mg/dL (74-106); Potassium 3.8 mmol/L (3.5-5.1); Sodium Level 137 mmol/L (136-145)
[2022-04-12 07:49] VITALS: O2SAT 91
[2022-04-12 09:10] VITALS: BP 170/58; PULSE 77; RESP 18; TEMP 36.6; O2SAT 94
[2022-04-12] MEDS: Ferrous Sulfate 325 MG Tablet PO (09:16)
[2022-04-12] MEDS: amLODIPine 5 MG Tablet PO (09:16)
[2022-04-12] MEDS: Losartan Potassium 100 MG Tablet PO (09:16)
[2022-04-12] MEDS: Atenolol 25 MG Tablet PO (09:16)
[2022-04-12] MEDS: Senna/Docusate Sodium 1 Tablet 2 TABLET PO ×2 (09:16→22:23)
[2022-04-12] MEDS: Pramipexole Di-HCl 0.125 MG Tablet PO ×4 (09:16→22:23)
[2022-04-12] MEDS: Calcium Carb/Vitamin D 1 TABLET Tablet PO ×2 (09:16→22:23)
[2022-04-12] MEDS: Cholecalciferol (VIT D3) 25 MCG TABLET (1,000 UNITS) PO (09:16)
--- NOTE | 2022-04-12 12:31 | PN.HOSP_ITS ---
Subjective Subjective Patient seen and examined. She still complains of back pain. SHe has no other complaints. She says she is willing to do the kyphoplasty to see if it will offer her any relief. Review of systems is otherwise negative. She has remained hemodynamically stable Objective Data Objective Data Vital Signs: Vital Signs Temp Pulse Resp BP Pulse Ox O2 Del Method O2 Flow Rate 98 F 77 18 170/58 H 94 Room Air 2 04/12/22 09:10 04/12/22 09:10 04/12/22 09:10 04/12/22 09:10 04/12/22 09:10 04/12/22 09:19 04/11/22 14:28 Oxygen Flow Rate (L/min) 2 Oxygen Delivery Method Room Air Weight: 172 lb 9 oz Body Mass Index (BMI) 33.7 Intake & Output: Intake and Output for Last 24 Hours 04/10/22 04/11/22 04/12/22 23:59 23:59 23:59 Intake Total 1000 / 1000 120 / 120 Output Total 900 / 1400 500 / 500 Balance 1000 / 900 -900 / -1400 -380 / -380 Lab / Micro Data Result Diagrams: 04/12/22 05:21 04/12/22 05:21 Labs: Laboratory Results - last 24 hr 04/12/22 05:21: PT 25.6 H, INR 2.4 04/12/22 05:21: WBC 7.4, RBC 3.77 L, Hgb 11.0 L, Hct 35.5 L, MCV 94.2, MCH 29.2, MCHC 31.0 L, RDW Std Deviation 46.5 H, RDW Coeff of Tiffani 13.5, Plt Count 351, MPV 9.5, Immature Gran % (Auto) 0.700, Neut % (Auto) 57.5, Lymph % (Auto) 26.5, [place] % (Auto) 10.5 H, Eos % (Auto) 3.8, Baso % (Auto) 1.0, Absolute Neuts (auto) 4.2, Absolute Lymphs (auto) 1.95, Nucleated RBC % 0 04/12/22 05:21: Sodium 137, Potassium 3.8, Chloride 100, Carbon Dioxide 29.0, Anion Gap 8, BUN 18, Creatinine 0.72, Estim Creat Clear Calc 29.01, Est GFR (MDRD) Af Amer 98, Est GFR (MDRD) Non-Af 81, BUN/Creatinine Ratio 24.8 H, Glucose 105, Calcium 9.7 Physical Exam Const alert, oriented x3 and no apparent distress HEENT head/scalp atraumatic, moist oral mucous membranes and oropharynx normal Head and Scalp: normocephalic Mouth: oral and palatal mucosa normal Eyes PERRL and EOMs intact bilaterally Neck no lymphadenopathy and supple Resp normal respiratory effort, no retractions, no use of accessory muscles and clear to auscultation bilaterally Cardio regular rate, regular rhythm, S1 normal heart sound, S2 normal heart sound and no murmurs GI normal to inspection, nondistended, normoactive bowel sounds, soft to palpation, non-tender and non-distended Extremity normal to inspection Neuro oriented x3, CN's II-XII intact bilaterally, moves all extremities and no focal motor deficits Sensorium / Orientation: awake and alert Motor Exam: strength 5/5 throughout Psych affect normal Assessment & Plan Assessment/Plan (1) Debility: PLAN: Plan #Back pain and debility due to lumbar compression fracture * recently had kyphoplasty for L3 compression fracture * now has new L2 compression fracture from spinal lumbar CT. * neurontin on hold per patient request * PT/OT on board * Dr Gardner of pain management on board; For kyphoplasty on Friday * fall precautions * #Dehydration: resolved. Feels much better #Hypertension: on amlodipine and atenolol as well as losartan #Atrial fibrillation: on atenolol. Coumadin on hold for possible kyphoplasty next Friday. INR is 2.4 #Hypertension:on losartan and amlodipine #Osteoporosis: on denosumab and calcium supplements #Restless leg syndrome: on ropinirole DVT prophylaxis: SCDs. Charges/Coding Visit Charges Inpatient E&M: 07336 Subs Hosp L2
[2022-04-12 14:00] VITALS: BP 117/51; PULSE 66; RESP 18; TEMP 36.7; O2SAT 97
[2022-04-12 22:15] VITALS: BP 176/55; PULSE 72; RESP 18; TEMP 36.9; O2SAT 92
[2022-04-12] MEDS: Magnesium Chloride 64 MG Delay Rel.Tablet 128 MG PO (22:23)
[2022-04-12] MEDS: MELATONIN 3 MG TABLET PO (22:23)
[2022-04-12] MEDS: Atenolol 50 MG Tablet PO (22:24)
[2022-04-13] VITALS (8 sets, daily range): BP systolic 148–168; BP diastolic 58–82; PULSE 67–77; RESP 16–18; TEMP 36.7–36.9; O2SAT 94–97
[2022-04-13] MEDS: hydrALAZINE 20 MG/ML Vial 5 MG IV (01:17)
[2022-04-13] MEDS: 0.9% Saline Lock 10 ML Syringe IV (01:21)
[2022-04-13] MEDS: HYDROcodone Bitartrate/Apap 5/325 Tablet PO ×3 (04:13→22:29)
[2022-04-13 07:28] LABS: Absolute Lymphocyte Count 1.66 X10^3/uL (0.83-4.51); Absolute Neutrophil Count 3.7 X10^3/uL (2.0-7.7); Basophil# 0.05 X10^3/uL; Basophil% 0.8 % (0-1); Eosinophil# 0.17 X10^3/uL; Eosinophils% 2.7 % (0-5); Hematocrit 34.5 % (37-47); Lymphocyte # 1.66 X10^3/ul (0.83-4.51); Lymphocyte % 26.8 % (19-41); Mean Corp Hgb Conc 31.9 g/dL (32-36); Mean Corpuscular Hgb 29.5 pg (27.0-32.0); Mean Corpuscular Volume 92.5 fL (81-99); Mean Platelet Vol. 9.3 fl (6.2-12.0); Monocyte# 0.58 X10^3/uL; Monocyte% 9.4 % (0-10); NRBC Flagged by Analyzer 0 % (0-5); Neutrophil # 3.69 X10^3/uL (2.7-7.7); Neutrophil % 59.5 % (47-70); Platelet Count 353 K/mm3 (150-450); RBC Distribution Width CV 13.3 % (11.6-14.6); RBC Distribution Width SD 45.3 fl (35.1-43.9); Red Blood Count 3.73 M/mm3 (4.2-5.4); White Blood Count 6.2 K/mm3 (4.4-11.0)
[2022-04-13 07:57] LABS: Anion Gap 4 (5-15); BUN 12 mg/dL (7-18); BUN/Creat Ratio 16.8 RATIO (10-20); Calcium,Total 9.6 mg/dL (8.5-10.1); Chloride 101 mmol/L (98-107); Creatinine, Serum 0.71 mg/dL (0.55-1.02); EST Glomerular Filtration Rate 83 mL/min (>60); Est Glom Filt Rate - Afr Amer 100 mL/min (>60); Estimated Creatinine Clearance 29.01 ml/min; Glucose 128 mg/dL (74-106); Potassium 3.5 mmol/L (3.5-5.1); Sodium Level 137 mmol/L (136-145)
[2022-04-13] MEDS: Ferrous Sulfate 325 MG Tablet PO (08:29)
[2022-04-13 08:41] LABS: International Normalized Ratio 1.9; Prothrombin Time (Protime)PT. 21.4 SECONDS (11.7-14.9)
[2022-04-13] MEDS: Pramipexole Di-HCl 0.125 MG Tablet PO ×4 (12:15→21:26)
[2022-04-13] MEDS: Losartan Potassium 100 MG Tablet PO (12:15)
[2022-04-13] MEDS: amLODIPine 5 MG Tablet PO (12:16)
[2022-04-13] MEDS: Calcium Carb/Vitamin D 1 TABLET Tablet PO ×2 (12:16→21:25)
[2022-04-13] MEDS: Senna/Docusate Sodium 1 Tablet 2 TABLET PO ×2 (12:16→21:26)
[2022-04-13] MEDS: Atenolol 25 MG Tablet PO (12:17)
[2022-04-13] MEDS: Cholecalciferol (VIT D3) 25 MCG TABLET (1,000 UNITS) PO (12:18)
--- NOTE | 2022-04-13 13:02 | PN.HOSP_ITS ---
Subjective Subjective Patient seen and examined. She has no complaints. Pain is well controlled. Review of systems is otherwise negative. Objective Data Objective Data Vital Signs: Vital Signs Temp Pulse Resp BP Pulse Ox O2 Del Method O2 Flow Rate 98.4 F 70 16 159/58 H 97 Room Air 2 04/13/22 08:17 04/13/22 08:17 04/13/22 08:17 04/13/22 08:17 04/13/22 08:17 04/13/22 08:17 04/11/22 14:28 Oxygen Flow Rate (L/min) 2 Oxygen Delivery Method Room Air Weight: 172 lb 9 oz Body Mass Index (BMI) 33.7 Intake & Output: Intake and Output for Last 24 Hours 04/11/22 04/12/22 04/13/22 23:59 23:59 23:59 Intake Total 320 / 320 150 / 150 Output Total 900 / 1400 500 / 500 Balance -900 / -1400 -180 / -180 150 / 150 Lab / Micro Data Result Diagrams: 04/13/22 07:01 04/13/22 07:01 Labs: Laboratory Results - last 24 hr 04/13/22 07:01: PT 21.4 H, INR 1.9 04/13/22 07:01: WBC 6.2, RBC 3.73 L, Hgb 11.0 L, Hct 34.5 L, MCV 92.5, MCH 29.5, MCHC 31.9 L, RDW Std Deviation 45.3 H, RDW Coeff of Tiffani 13.3, Plt Count 353, MPV 9.3, Immature Gran % (Auto) 0.800, Neut % (Auto) 59.5, Lymph % (Auto) 26.8, [place] % (Auto) 9.4, Eos % (Auto) 2.7, Baso % (Auto) 0.8, Absolute Neuts (auto) 3.7, Absolute Lymphs (auto) 1.66, Nucleated RBC % 0 04/13/22 07:01: Sodium 137, Potassium 3.5, Chloride 101, Carbon Dioxide 32.0, Anion Gap 4 L, BUN 12, Creatinine 0.71, Estim Creat Clear Calc 29.01, Est GFR (MDRD) Af Amer 100, Est GFR (MDRD) Non-Af 83, BUN/Creatinine Ratio 16.8, Glucose 128 H, Calcium 9.6 Physical Exam Const alert, oriented x3 and no apparent distress HEENT head/scalp atraumatic, moist oral mucous membranes and oropharynx normal Head and Scalp: normocephalic Mouth: oral and palatal mucosa normal Eyes PERRL and EOMs intact bilaterally Neck no lymphadenopathy and supple Resp normal respiratory effort, no retractions, no use of accessory muscles and clear to auscultation bilaterally Cardio regular rate, regular rhythm, S1 normal heart sound, S2 normal heart sound and no murmurs GI normal to inspection, nondistended, normoactive bowel sounds, soft to palpation, non-tender and non-distended Extremity normal to inspection Neuro oriented x3, CN's II-XII intact bilaterally, moves all extremities and no focal motor deficits Sensorium / Orientation: awake and alert Motor Exam: strength 5/5 throughout Psych affect normal Assessment & Plan Assessment/Plan (1) Debility: PLAN: Plan #Back pain and debility due to lumbar compression fracture * recently had kyphoplasty for L3 compression fracture * now has new L2 compression fracture from spinal lumbar CT. * neurontin on hold per patient request * PT/OT on board * Dr Gardner of pain management on board; For kyphoplasty on Friday, which is the earliest Dr Gardner can do it * fall precautions * #Dehydration: resolved. Feels much better #Hypertension: on amlodipine and atenolol as well as losartan #Atrial fibrillation: on atenolol. Coumadin on hold for possible kyphoplasty next Friday. INR is 1.9 today #Hypertension:on losartan and amlodipine #Osteoporosis: on denosumab and calcium supplements #Restless leg syndrome: on ropinirole DVT prophylaxis: SCDs. Charges/Coding Visit Charges Inpatient E&M: 31214 Subs Hosp L2
[2022-04-13] MEDS: Atenolol 50 MG Tablet PO (21:25)
[2022-04-13] MEDS: Magnesium Chloride 64 MG Delay Rel.Tablet 128 MG PO (21:26)
[2022-04-13] MEDS: MELATONIN 3 MG TABLET PO (22:29)
[2022-04-14] VITALS (7 sets, daily range): BP systolic 135–193; BP diastolic 45–60; PULSE 66–77; RESP 16; TEMP 36.6–36.9; O2SAT 93–97
[2022-04-14] MEDS: Ondansetron 4 MG/2 ML Vial IV ×2 (03:21→20:29)
[2022-04-14] MEDS: hydrALAZINE 20 MG/ML Vial 5 MG IV (03:27)
[2022-04-14] MEDS: HYDROcodone Bitartrate/Apap 5/325 Tablet PO ×4 (03:43→22:00)
[2022-04-14 06:56] LABS: Absolute Lymphocyte Count 2.25 X10^3/uL (0.83-4.51); Absolute Neutrophil Count 4.1 X10^3/uL (2.0-7.7); Basophil# 0.06 X10^3/uL; Basophil% 0.8 % (0-1); Eosinophil# 0.23 X10^3/uL; Hematocrit 35.6 % (37-47); Hemoglobin 11.8 g/dL (12.0-15.0); Lymphocyte # 2.25 X10^3/ul (0.83-4.51); Lymphocyte % 29.8 % (19-41); Mean Corp Hgb Conc 33.1 g/dL (32-36); Mean Corpuscular Hgb 30.1 pg (27.0-32.0); Mean Corpuscular Volume 90.8 fL (81-99); Mean Platelet Vol. 9.4 fl (6.2-12.0); Monocyte% 10.6 % (0-10); NRBC Flagged by Analyzer 0 % (0-5); Neutrophil # 4.14 X10^3/uL (2.7-7.7); Neutrophil % 54.9 % (47-70); Platelet Count 382 K/mm3 (150-450); RBC Distribution Width CV 13.3 % (11.6-14.6); RBC Distribution Width SD 44.4 fl (35.1-43.9); Red Blood Count 3.92 M/mm3 (4.2-5.4); White Blood Count 7.6 K/mm3 (4.4-11.0)
[2022-04-14 07:22] LABS: Anion Gap 7 (5-15); BUN 11 mg/dL (7-18); Calcium,Total 9.4 mg/dL (8.5-10.1); Chloride 98 mmol/L (98-107); Creatinine, Serum 0.58 mg/dL (0.55-1.02); EST Glomerular Filtration Rate 105 mL/min (>60); Est Glom Filt Rate - Afr Amer 127 mL/min (>60); Estimated Creatinine Clearance 29.01 ml/min; Glucose 102 mg/dL (74-106); Potassium 3.4 mmol/L (3.5-5.1); Sodium Level 136 mmol/L (136-145)
[2022-04-14] MEDS: Ferrous Sulfate 325 MG Tablet PO (08:31)
[2022-04-14] MEDS: Potassium Chloride Oral Tablet 20 MEQ 40 MEQ PO (08:41)
[2022-04-14] MEDS: amLODIPine 5 MG Tablet PO (10:37)
[2022-04-14] MEDS: Losartan Potassium 100 MG Tablet PO (10:37)
[2022-04-14] MEDS: Pramipexole Di-HCl 0.125 MG Tablet PO ×4 (10:37→20:32)
[2022-04-14] MEDS: Calcium Carb/Vitamin D 1 TABLET Tablet PO ×2 (10:38→20:32)
[2022-04-14] MEDS: Senna/Docusate Sodium 1 Tablet 2 TABLET PO ×2 (10:38→20:33)
[2022-04-14] MEDS: Atenolol 25 MG Tablet PO (10:38)
[2022-04-14] MEDS: Cholecalciferol (VIT D3) 25 MCG TABLET (1,000 UNITS) PO (10:39)
--- NOTE | 2022-04-14 10:40 | PN.HOSP_ITS ---
Subjective Subjective Patient seen and examined. She had no complaints today. She says she is scared about the upcoming procedure. Review of systems is otherwise negative. Objective Data Objective Data Vital Signs: Vital Signs Temp Pulse Resp BP Pulse Ox O2 Del Method O2 Flow Rate 98.4 F 73 16 144/46 H 95 Room Air 2 04/14/22 08:19 04/14/22 08:19 04/14/22 08:19 04/14/22 08:19 04/14/22 08:19 04/14/22 08:19 04/11/22 14:28 Oxygen Flow Rate (L/min) 2 Oxygen Delivery Method Room Air Weight: 172 lb 9 oz Body Mass Index (BMI) 33.7 Intake & Output: Intake and Output for Last 24 Hours 04/12/22 04/13/22 04/14/22 23:59 23:59 23:59 Intake Total 320 / 320 150 / 350 200 / 200 Output Total 500 / 500 250 / 250 Balance -180 / -180 150 / 100 -50 / -50 Lab / Micro Data Result Diagrams: 04/14/22 06:13 04/14/22 06:13 Labs: Laboratory Results - last 24 hr 04/14/22 06:13: WBC 7.6, RBC 3.92 L, Hgb 11.8 L, Hct 35.6 L, MCV 90.8, MCH 30.1, MCHC 33.1, RDW Std Deviation 44.4 H, RDW Coeff of Tiffani 13.3, Plt Count 382, MPV 9.4, Immature Gran % (Auto) 0.900, Neut % (Auto) 54.9, Lymph % (Auto) 29.8, [place] % (Auto) 10.6 H, Eos % (Auto) 3.0, Baso % (Auto) 0.8, Absolute Neuts (auto) 4.1, Absolute Lymphs (auto) 2.25, Nucleated RBC % 0 04/14/22 06:13: Sodium 136, Potassium 3.4 L, Chloride 98, Carbon Dioxide 31.0, Anion Gap 7, BUN 11, Creatinine 0.58, Estim Creat Clear Calc 29.01, Est GFR (MDRD) Af Amer 127, Est GFR (MDRD) Non-Af 105, BUN/Creatinine Ratio 19.0, Glucose 102, Calcium 9.4 Physical Exam Const alert, oriented x3 and no apparent distress HEENT head/scalp atraumatic, moist oral mucous membranes and oropharynx normal Head and Scalp: normocephalic Mouth: oral and palatal mucosa normal Eyes PERRL and EOMs intact bilaterally Neck no lymphadenopathy and supple Resp normal respiratory effort, no retractions, no use of accessory muscles and clear to auscultation bilaterally Cardio regular rate, regular rhythm, S1 normal heart sound, S2 normal heart sound and no murmurs GI normal to inspection, nondistended, normoactive bowel sounds, soft to palpation, non-tender and non-distended Extremity normal to inspection Neuro oriented x3, CN's II-XII intact bilaterally, moves all extremities and no focal motor deficits Sensorium / Orientation: awake and alert Motor Exam: strength 5/5 throughout Psych affect normal Assessment & Plan Assessment/Plan (1) Debility: PLAN: Plan #Back pain and debility due to lumbar compression fracture * recently had kyphoplasty for L3 compression fracture * now has new L2 compression fracture from spinal lumbar CT. * neurontin on hold per patient request * PT/OT on board * Dr Gardner of pain management on board; For kyphoplasty on Friday, which is the earliest Dr Gardner can do it * fall precautions * #Dehydration: resolved. Feels much better #Hypertension: on amlodipine and atenolol as well as losartan #Atrial fibrillation: on atenolol. Coumadin on hold for possible kyphoplasty next Friday. INR is 1.9 today #Hypertension:on losartan and amlodipine #Osteoporosis: on denosumab and calcium supplements #Restless leg syndrome: on ropinirole DVT prophylaxis: SCDs. coumadin on hold for kyphoplasty on Friday Charges/Coding Visit Charges Inpatient E&M: 31167 Subs Hosp L2
[2022-04-14 11:13] LABS: International Normalized Ratio 1.5; Prothrombin Time (Protime)PT. 17.4 SECONDS (11.7-14.9)
[2022-04-14] MEDS: Acetaminophen 500 MG Tablet PO (20:32)
[2022-04-14] MEDS: Magnesium Chloride 64 MG Delay Rel.Tablet 128 MG PO (20:32)
[2022-04-14] MEDS: Atenolol 50 MG Tablet PO (20:33)
[2022-04-15] VITALS (8 sets, daily range): BP systolic 136–177; BP diastolic 44–56; PULSE 72–78; RESP 18; TEMP 36.7–37.3; O2SAT 93–95
[2022-04-15] MEDS: hydrALAZINE 20 MG/ML Vial 5 MG IV (02:00)
[2022-04-15 06:13] LABS: Absolute Lymphocyte Count 2.21 X10^3/uL (0.83-4.51); Absolute Neutrophil Count 4.8 X10^3/uL (2.0-7.7); Basophil# 0.04 X10^3/uL; Basophil% 0.5 % (0-1); Eosinophil# 0.25 X10^3/uL; Hematocrit 37.1 % (37-47); Lymphocyte # 2.21 X10^3/ul (0.83-4.51); Lymphocyte % 26.7 % (19-41); Mean Corp Hgb Conc 32.3 g/dL (32-36); Mean Corpuscular Hgb 29.9 pg (27.0-32.0); Mean Corpuscular Volume 92.3 fL (81-99); Monocyte# 0.85 X10^3/uL; Monocyte% 10.3 % (0-10); NRBC Flagged by Analyzer 0 % (0-5); Neutrophil # 4.84 X10^3/uL (2.7-7.7); Neutrophil % 58.4 % (47-70); Platelet Count 398 K/mm3 (150-450); RBC Distribution Width CV 13.7 % (11.6-14.6); RBC Distribution Width SD 46.5 fl (35.1-43.9); Red Blood Count 4.02 M/mm3 (4.2-5.4); White Blood Count 8.3 K/mm3 (4.4-11.0)
[2022-04-15 06:27] LABS: International Normalized Ratio 1.4; Prothrombin Time (Protime)PT. 16.5 SECONDS (11.7-14.9)
[2022-04-15 06:40] LABS: Anion Gap 4 (5-15); BUN 14 mg/dL (7-18); BUN/Creat Ratio 19.6 RATIO (10-20); Calcium,Total 9.9 mg/dL (8.5-10.1); Chloride 100 mmol/L (98-107); Creatinine, Serum 0.72 mg/dL (0.55-1.02); EST Glomerular Filtration Rate 82 mL/min (>60); Est Glom Filt Rate - Afr Amer 100 mL/min (>60); Estimated Creatinine Clearance 29.01 ml/min; Glucose 110 mg/dL (74-106); Sodium Level 133 mmol/L (136-145)
[2022-04-15] MEDS: HYDROcodone Bitartrate/Apap 5/325 Tablet PO (06:58)
[2022-04-15] MEDS: Ondansetron 4 MG/2 ML Vial IV (08:19)
[2022-04-15] MEDS: 0.9% Saline Lock 10 ML Syringe IV (08:19)
[2022-04-15] MEDS: Calcium Carb/Vitamin D 1 TABLET Tablet PO ×2 (08:27→20:22)
[2022-04-15] MEDS: Cholecalciferol (VIT D3) 25 MCG TABLET (1,000 UNITS) PO (08:27)
[2022-04-15] MEDS: Senna/Docusate Sodium 1 Tablet 2 TABLET PO ×2 (08:28→20:22)
[2022-04-15] MEDS: amLODIPine 5 MG Tablet PO (08:28)
[2022-04-15] MEDS: Ferrous Sulfate 325 MG Tablet PO (08:28)
[2022-04-15] MEDS: Atenolol 25 MG Tablet PO (08:28)
[2022-04-15] MEDS: Pramipexole Di-HCl 0.125 MG Tablet PO ×4 (08:28→20:22)
[2022-04-15] MEDS: Losartan Potassium 100 MG Tablet PO (08:29)
--- NOTE | 2022-04-15 11:01 | PN.HOSP_ITS ---
Subjective Subjective With some nausea, this is likely due to anxiety as reported by nursing staff as well as family members. Continues to have back pain Objective Data Objective Data Vital Signs: Vital Signs Temp Pulse Resp BP Pulse Ox O2 Del Method O2 Flow Rate 98.1 F 74 18 136/49 H 94 Room Air 2 04/15/22 08:20 04/15/22 08:20 04/15/22 08:20 04/15/22 08:20 04/15/22 08:20 04/15/22 03:28 04/11/22 14:28 Oxygen Flow Rate (L/min) 2 Oxygen Delivery Method Room Air Weight: 172 lb 9 oz Body Mass Index (BMI) 33.7 Intake & Output: Intake and Output for Last 24 Hours 04/14/22 04/15/22 04/16/22 03:59 03:59 03:59 Intake Total 350 / 350 200 / 200 Output Total 250 / 250 200 / 200 Balance 100 / 100 -200 / -200 200 / 200 Lab / Micro Data Result Diagrams: 04/15/22 06:01 04/15/22 06:01 Labs: Laboratory Results - last 24 hr 04/14/22 06:13: PT 17.4 H, INR 1.5 04/15/22 06:01: WBC 8.3, RBC 4.02 L, Hgb 12.0, Hct 37.1, MCV 92.3, MCH 29.9, MC HC 32.3, RDW Std Deviation 46.5 H, RDW Coeff of Tiffani 13.7, Plt Count 398, MPV 9.0, Immature Gran % (Auto) 1.100 H, Neut % (Auto) 58.4, Lymph % (Auto) 26.7, [place] % (Auto) 10.3 H, Eos % (Auto) 3.0, Baso % (Auto) 0.5, Absolute Neuts (auto) 4.8, Absolute Lymphs (auto) 2.21, Nucleated RBC % 0 04/15/22 06:01: Sodium 133 L, Potassium 4.0, Chloride 100, Carbon Dioxide 29.0, Anion Gap 4 L, BUN 14, Creatinine 0.72, Estim Creat Clear Calc 29.01, Est GFR (MDRD) Af Amer 100, Est GFR (MDRD) Non-Af 82, BUN/Creatinine Ratio 19.6, Glucose 110 H, Calcium 9.9 04/15/22 06:01: PT 16.5 H, INR 1.4 Physical Exam Narrative General: Alert, Oriented x3, Cooperative, No apparent distress HEENT: Atraumatic, PERRLA, EOMI, Normocephalic Oral: Moist Mucosa Neck: Supple, No JVD Lungs: Diminished, Normal air movement, No rhonchi, No wheeze, No rales Cardiovascular: Regular rate, Regular Rhythm, Normal S1, Normal S2, No murmurs Abdomen: Soft, Non Tender, Non-Distended, No Hepato-splenomegaly Extremities: No edema, Capillary Refill Less than 3 Seconds Skin: No rashes, No breakdown Musculoskeletal: No Tenderness to Palpation of Joints or Extremities Neurological: Cranial nerves II-XII grossly intact, Motor Exam 5/5 strength throughout, Sensory exam intact to light touch and pain Psych/Mental Status: Normal Affect, Appropriate Assessment & Plan Assessment/Plan (1) Debility: PLAN: Plan 1. Back pain and debility due to lumbar compression fracture * recently had kyphoplasty for L3 compression fracture * now has new L2 compression fracture from spinal lumbar CT. * neurontin on hold per patient request * PT/OT on board * Dr Gardner of pain management on board; For kyphoplasty on Friday, which is the earliest Dr Gardner can do it * fall precautions 2. HTN/A. fib ? Blood pressures are stable, can resume her home blood pressure medications ? Her Coumadin is on hold secondary to the kyphoplasty INR today is 1.4 so she is cleared for surgery 3. Osteoporosis ? Stable ? Continue with her home medications 4. Restless leg syndrome ? Stable ? Continue with her home medications DVT: SCDs. coumadin on hold for kyphoplasty on Friday Charges/Coding Visit Charges OBSV E&M: 38489 Subsequent observation care L2
[2022-04-15] MEDS: Acetaminophen 500 MG Tablet 1000 MG PO ×2 (12:39→20:22)
--- NOTE | 2022-04-15 16:31 | NURSING ---
phone call to Dr. Gardner office to clarify surgery 04/16/22 as per was in report however nothing listed on surgery schedule. Dr. Gardner phones [facility]- states he can do surgery if pt needs, but was waiting on Dr. Jimenez to inform him of that. Informed new hospitalist here. Dr. Gardner states he would be fine talking to new hospitalist. Dr. Maza texted and asked to phone Dr. Gardner on his cell phone.
[2022-04-15] MEDS: Magnesium Chloride 64 MG Delay Rel.Tablet 128 MG PO (20:22)
[2022-04-15] MEDS: Atenolol 50 MG Tablet PO (20:22)
[2022-04-16] VITALS (8 sets, daily range): BP systolic 136–199; BP diastolic 46–87; PULSE 71–76; RESP 18; TEMP 36.8–37.2; O2SAT 93–95; BMI 33.7
[2022-04-16] MEDS: MELATONIN 3 MG TABLET PO (00:40)
[2022-04-16] MEDS: hydrALAZINE 20 MG/ML Vial 5 MG IV ×2 (00:49→07:45)
[2022-04-16] MEDS: Acetaminophen 500 MG Tablet 1000 MG PO ×3 (05:17→21:45)
--- NOTE | 2022-04-16 05:55 | EKG12_ITS ---
Test Reason : PRE OP Blood Pressure : / mmHG Vent. Rate : 071 BPM Atrial Rate : 071 BPM P-R Int : 162 ms QRS Dur : 130 ms QT Int : 408 ms P-R-T Axes : 017 -09 025 degrees QTc Int : 443 ms Normal sinus rhythm Right bundle branch block Abnormal ECG Confirmed by KESHA URBAN, EBONI ([id number]), medical transcription editor VANESA BURNETT ([id number]) on 04/17/2022 8:59:33 AM Referred By: Confirmed By:EBONI REBOLLEDO MD
[2022-04-16 06:28] LABS: Absolute Lymphocyte Count 2.26 X10^3/uL (0.83-4.51); Absolute Neutrophil Count 6.7 X10^3/uL (2.0-7.7); Basophil# 0.07 X10^3/uL; Basophil% 0.7 % (0-1); Eosinophil# 0.08 X10^3/uL; Eosinophils% 0.8 % (0-5); Hematocrit 36.7 % (37-47); Hemoglobin 12.1 g/dL (12.0-15.0); Lymphocyte # 2.26 X10^3/ul (0.83-4.51); Lymphocyte % 22.2 % (19-41); Mean Corpuscular Hgb 29.8 pg (27.0-32.0); Mean Corpuscular Volume 90.4 fL (81-99); Mean Platelet Vol. 8.9 fl (6.2-12.0); Monocyte# 0.93 X10^3/uL; Monocyte% 9.1 % (0-10); NRBC Flagged by Analyzer 0 % (0-5); Neutrophil # 6.74 X10^3/uL (2.7-7.7); Neutrophil % 66.2 % (47-70); Platelet Count 419 K/mm3 (150-450); RBC Distribution Width CV 13.5 % (11.6-14.6); RBC Distribution Width SD 44.8 fl (35.1-43.9); Red Blood Count 4.06 M/mm3 (4.2-5.4); White Blood Count 10.2 K/mm3 (4.4-11.0)
[2022-04-16 06:39] LABS: International Normalized Ratio 1.3; Prothrombin Time (Protime)PT. 15.5 SECONDS (11.7-14.9)
[2022-04-16 06:40] LABS: Partial Thromboplast Time 31.7 Seconds (24.1-36.2)
[2022-04-16 07:06] LABS: AST(SGOT) 16 U/L (15-37); Alanine Aminotransfer ALT/SGPT 14 U/L (13-56); Albumin, Serum 3.1 g/dL (3.2-5.0); Alkaline Phosphatase 75 U/L (45-117); Anion Gap 6 (5-15); BUN 12 mg/dL (7-18); BUN/Creat Ratio 16.7 RATIO (10-20); Bilirubin, Direct 0.12 mg/dL (0.00-0.30); Calcium,Total 9.7 mg/dL (8.5-10.1); Chloride 97 mmol/L (98-107); Creatinine, Serum 0.72 mg/dL (0.55-1.02); EST Glomerular Filtration Rate 82 mL/min (>60); Est Glom Filt Rate - Afr Amer 99 mL/min (>60); Estimated Creatinine Clearance 29.01 ml/min; Globulin 3.6 g/dL (2.2-4.2); Glucose 111 mg/dL (74-106); Potassium 3.8 mmol/L (3.5-5.1); Protein, Total 6.7 g/dL (6.4-8.2); Sodium Level 133 mmol/L (136-145)
[2022-04-16] MEDS: Ferrous Sulfate 325 MG Tablet PO (07:44)
[2022-04-16] MEDS: Pramipexole Di-HCl 0.125 MG Tablet PO ×4 (07:44→21:45)
[2022-04-16] MEDS: Senna/Docusate Sodium 1 Tablet 2 TABLET PO ×2 (07:44→21:45)
[2022-04-16] MEDS: Calcium Carb/Vitamin D 1 TABLET Tablet PO ×2 (07:45→21:45)
[2022-04-16] MEDS: Atenolol 25 MG Tablet PO (07:45)
[2022-04-16] MEDS: amLODIPine 5 MG Tablet PO (07:45)
[2022-04-16] MEDS: Cholecalciferol (VIT D3) 25 MCG TABLET (1,000 UNITS) PO (07:45)
[2022-04-16] MEDS: Ondansetron 4 MG/2 ML Vial IV (07:45)
[2022-04-16] MEDS: 0.9% Saline Lock 10 ML Syringe IV (07:46)
[2022-04-16] MEDS: Losartan Potassium 100 MG Tablet PO (08:10)
[2022-04-16] MEDS: Polyethylene Glycol 3350 17 GM PACKET PO (08:11)
--- NOTE | 2022-04-16 10:29 | PN.HOSP_ITS ---
Subjective Subjective Doing well, no issues overnight. Nausea resolved better controlled as is her pain Objective Data Objective Data Vital Signs: Vital Signs Temp Pulse Resp BP Pulse Ox O2 Del Method O2 Flow Rate 98.8 F 71 18 136/46 H 94 Room Air 2 04/16/22 07:29 04/16/22 09:43 04/16/22 07:29 04/16/22 09:43 04/16/22 07:29 04/16/22 07:29 04/11/22 14:28 Oxygen Flow Rate (L/min) 2 Oxygen Delivery Method Room Air Weight: 172 lb 9 oz Body Mass Index (BMI) 33.7 Intake & Output: Intake and Output for Last 24 Hours 04/15/22 04/16/22 04/17/22 03:59 03:59 03:59 Intake Total 200 / 200 Output Total 200 / 200 650 / 650 300 / 300 Balance -200 / -200 -450 / -450 -300 / -300 Lab / Micro Data Result Diagrams: 04/16/22 06:15 04/16/22 06:15 Labs: Laboratory Results - last 24 hr 04/16/22 06:15: WBC 10.2, RBC 4.06 L, Hgb 12.1, Hct 36.7 L, MCV 90.4, MCH 29.8, MCHC 33.0, RDW Std Deviation 44.8 H, RDW Coeff of Tiffani 13.5, Plt Count 419, MPV 8 .9, Immature Gran % (Auto) 1.000 H, Neut % (Auto) 66.2, Lymph % (Auto) 22.2, [place] % (Auto) 9.1, Eos % (Auto) 0.8, Baso % (Auto) 0.7, Absolute Neuts (auto) 6.7, Absolute Lymphs (auto) 2.26, Nucleated RBC % 0 04/16/22 06:15: Sodium 133 L, Potassium 3.8, Chloride 97 L, Carbon Dioxide 30.0, Anion Gap 6, BUN 12, Creatinine 0.72, Estim Creat Clear Calc 29.01, Est GFR (MDRD) Af Amer 99, Est GFR (MDRD) Non-Af 82, BUN/Creatinine Ratio 16.7, Glucose 111 H, Calcium 9.7, Total Bilirubin 0.40, Direct Bilirubin 0.12, AST 16, ALT 14, Alkaline Phosphatase 75, Total Protein 6.7, Albumin 3.1 L, Globulin 3.6 04/16/22 06:15: PT 15.5 H, INR 1.3, APTT 31.7 Physical Exam Narrative General: Alert, Oriented x3, Cooperative, No apparent distress HEENT: Atraumatic, PERRLA, EOMI, Normocephalic Oral: Moist Mucosa Neck: Supple, No JVD Lungs: Diminished, Normal air movement, No rhonchi, No wheeze, No rales Cardiovascular: Regular rate, Regular Rhythm, Normal S1, Normal S2, No murmurs Abdomen: Soft, Non Tender, Non-Distended, No Hepato-splenomegaly Extremities: No edema, Capillary Refill Less than 3 Seconds Skin: No rashes, No breakdown Musculoskeletal: No Tenderness to Palpation of Joints or Extremities Neurological: Cranial nerves II-XII grossly intact, Motor Exam 5/5 strength throughout, Sensory exam intact to light touch and pain Psych/Mental Status: Normal Affect, Appropriate Assessment & Plan Assessment/Plan (1) Debility: PLAN: Plan 1. Back pain and debility due to lumbar compression fracture * recently had kyphoplasty for L3 compression fracture * now has new L2 compression fracture from spinal lumbar CT. * neurontin on hold per patient request * PT/OT on board * Dr Gardner of pain management on board; kyphoplasty today as an add-on, INR is 1.3 today * fall precautions 2. HTN/A. fib ? Blood pressures are stable, can resume her home blood pressure medications ? Her Coumadin is on hold secondary to the kyphoplasty 3. Osteoporosis ? Stable ? Continue with her home medications 4. Restless leg syndrome ? Stable ? Continue with her home medications DVT: SCDs. coumadin on hold for kyphoplasty on Friday Charges/Coding Visit Charges OBSV E&M: 73013 Subsequent observation care L2
--- NOTE | 2022-04-16 13:10 | CASEMGMT ---
Addendum entered by Tila Yañez 04/16/22 14:50: Family contacted SW to inform IF SNF is needed following medical procedure that [facility] would be choice. SW discussed intent to wait after procedure and after therapy evaluates pt tomorrow to determine if SNF is needed and then if so, a referral to [facility] would be sent. Family agreeable. LUIS Cardenas Original Note: Social Work? SW in to meet with pt and family following update from nurse that family wanted to discuss discharge planning. SW? introduced self and role at the hospital. Pt and family agreeable to discussing discharge planning. Pt was here recently and family aware the process for SNF could be a long one so family wanted to get started now. A list of SNF providers including quality and resource use data and consistent with the patient?s preferred geographic region, medical needs, and insurance network were provided from the [facility] Guide. Pt preference is [facility]. However TCU will not have beds open for more than a week. Family wants to go to a few SNFs to tour the facilities. Family aware they can meet with SW tomorrow after therapy has evaluated to discuss if SNF placement is necessary. ?? PLAN: Possible SNF?placement LUIS Cardenas?
[2022-04-16] MEDS: Magnesium Chloride 64 MG Delay Rel.Tablet 128 MG PO (21:45)
[2022-04-16] MEDS: Atenolol 50 MG Tablet PO (21:45)
[2022-04-17] VITALS (13 sets, daily range): BP systolic 109–160; BP diastolic 42–90; PULSE 63–89; RESP 16–18; TEMP 36.2–37.2; O2SAT 92–97; BMI 33.6
[2022-04-17] MEDS: Acetaminophen 500 MG Tablet 1000 MG PO ×2 (04:18→21:07)
[2022-04-17 06:08] LABS: Absolute Lymphocyte Count 1.67 X10^3/uL (0.83-4.51); Absolute Neutrophil Count 5.5 X10^3/uL (2.0-7.7); Basophil# 0.07 X10^3/uL; Basophil% 0.8 % (0-1); Eosinophil# 0.19 X10^3/uL; Eosinophils% 2.3 % (0-5); Hematocrit 36.2 % (37-47); Hemoglobin 11.4 g/dL (12.0-15.0); Lymphocyte # 1.67 X10^3/ul (0.83-4.51); Lymphocyte % 20.2 % (19-41); Mean Corp Hgb Conc 31.5 g/dL (32-36); Mean Corpuscular Hgb 28.9 pg (27.0-32.0); Mean Corpuscular Volume 91.9 fL (81-99); Mean Platelet Vol. 9.3 fl (6.2-12.0); Monocyte# 0.75 X10^3/uL; Monocyte% 9.1 % (0-10); NRBC Flagged by Analyzer 0 % (0-5); Neutrophil # 5.52 X10^3/uL (2.7-7.7); Neutrophil % 66.9 % (47-70); Platelet Count 410 K/mm3 (150-450); RBC Distribution Width CV 13.4 % (11.6-14.6); RBC Distribution Width SD 45.4 fl (35.1-43.9); Red Blood Count 3.94 M/mm3 (4.2-5.4); White Blood Count 8.3 K/mm3 (4.4-11.0)
[2022-04-17 06:40] LABS: Anion Gap 9 (5-15); BUN 18 mg/dL (7-18); BUN/Creat Ratio 21.7 RATIO (10-20); Calcium,Total 9.7 mg/dL (8.5-10.1); Chloride 98 mmol/L (98-107); Creatinine, Serum 0.83 mg/dL (0.55-1.02); EST Glomerular Filtration Rate 69 mL/min (>60); Est Glom Filt Rate - Afr Amer 84 mL/min (>60); Estimated Creatinine Clearance 34.95 ml/min; Glucose 103 mg/dL (74-106); Potassium 3.6 mmol/L (3.5-5.1); Sodium Level 134 mmol/L (136-145)
[2022-04-17] MEDS: amLODIPine 5 MG Tablet PO (07:47)
[2022-04-17] MEDS: Atenolol 25 MG Tablet PO (07:48)
[2022-04-17] MEDS: Ferrous Sulfate 325 MG Tablet PO (07:48)
[2022-04-17] MEDS: Losartan Potassium 100 MG Tablet PO (07:48)
[2022-04-17] MEDS: Calcium Carb/Vitamin D 1 TABLET Tablet PO ×2 (07:48→21:07)
[2022-04-17] MEDS: Cholecalciferol (VIT D3) 25 MCG TABLET (1,000 UNITS) PO (07:48)
[2022-04-17] MEDS: Pramipexole Di-HCl 0.125 MG Tablet PO ×3 (07:48→21:07)
[2022-04-17] MEDS: Senna/Docusate Sodium 1 Tablet 2 TABLET PO (07:48)
[2022-04-17] MEDS: Morphine 2 MG/ML Syringe IV (09:35)
[2022-04-17] MEDS: Ondansetron 4 MG/2 ML Vial IV (09:35)
[2022-04-17] MEDS: 0.9% Saline Lock 10 ML Syringe IV (09:35)
--- NOTE | 2022-04-17 10:24 | PN.HOSP_ITS ---
Subjective Subjective Well, no issues overnight. Unfortunate could not have her kyphoplasty yesterday secondary to backup in the OR we will proceed with that today Objective Data Objective Data Vital Signs: Vital Signs Temp Pulse Resp BP Pulse Ox O2 Del Method O2 Flow Rate 98.3 F 73 18 156/52 H 97 Room Air 2 04/17/22 04:12 04/17/22 04:12 04/17/22 04:12 04/17/22 04:12 04/17/22 08:56 04/17/22 04:15 04/11/22 14:28 Oxygen Flow Rate (L/min) 2 Oxygen Delivery Method Room Air Weight: 172 lb 9 oz Body Mass Index (BMI) 33.7 Intake & Output: Intake and Output for Last 24 Hours 04/16/22 04/17/22 04/18/22 03:59 03:59 03:59 Intake Total 200 / 200 240 / 240 Output Total 650 / 650 850 / 850 Balance -450 / -450 -610 / -610 Lab / Micro Data Result Diagrams: 04/17/22 05:48 04/17/22 05:48 Labs: Laboratory Results - last 24 hr 04/17/22 05:48: WBC 8.3, RBC 3.94 L, Hgb 11.4 L, Hct 36.2 L, MCV 91.9, MCH 28.9, MCHC 31.5 L, RDW Std Deviation 45.4 H, RDW Coeff of Tiffani 13.4, Plt Count 410, MPV 9.3, Immature Gran % (Auto) 0.700, Neut % (Auto) 66.9, Lymph % (Auto) 20.2, Barber % (Auto) 9.1, Eos % (Auto) 2.3, Baso % (Auto) 0.8, Absolute Neuts (auto) 5.5, Absolute Lymphs (auto) 1.67, Nucleated RBC % 0 04/17/22 05:48: Sodium 134 L, Potassium 3.6, Chloride 98, Carbon Dioxide 27.0, Anion Gap 9, BUN 18, Creatinine 0.83, Estim Creat Clear Calc 34.95, Est GFR (MDRD) Af Amer 84, Est GFR (MDRD) Non-Af 69, BUN/Creatinine Ratio 21.7 H, Glucose 103, Calcium 9.7 Physical Exam Narrative General: Alert, Oriented x3, Cooperative, No apparent distress HEENT: Atraumatic, PERRLA, EOMI, Normocephalic Oral: Moist Mucosa Neck: Supple, No JVD Lungs: Diminished, Normal air movement, No rhonchi, No wheeze, No rales Cardiovascular: Regular rate, Regular Rhythm, Normal S1, Normal S2, No murmurs Abdomen: Soft, Non Tender, Non-Distended, No Hepato-splenomegaly Extremities: No edema, Capillary Refill Less than 3 Seconds Skin: No rashes, No breakdown Musculoskeletal: No Tenderness to Palpation of Joints or Extremities Neurological: Cranial nerves II-XII grossly intact, Motor Exam 5/5 strength throughout, Sensory exam intact to light touch and pain Psych/Mental Status: Normal Affect, Appropriate Assessment & Plan Assessment/Plan (1) Debility: PLAN: Plan 1. Back pain and debility due to lumbar compression fracture * recently had kyphoplasty for L3 compression fracture * now has new L2 compression fracture from spinal lumbar CT. * neurontin on hold per patient request * PT/OT on board * Dr Gardner of pain management on board; plan for kyphoplasty today as an add- on as the OR got backed up yesterday * fall precautions 2. HTN/A. fib ? Blood pressures are stable, can resume her home blood pressure medications ? Her Coumadin is on hold secondary to the kyphoplasty 3. Osteoporosis ? Stable ? Continue with her home medications 4. Restless leg syndrome ? Stable ? Continue with her home medications DVT: SCDs Charges/Coding Visit Charges OBSV E&M: 44396 Subsequent observation care L2
--- NOTE | 2022-04-17 15:55 | RAD_ITS ---
CLINICAL HISTORY: L2 KYPHO Date: 04/17/2022 4:14 PM Date of : 1935 Images assigned to this order were provided in conjunction with a surgical procedure performed in the operating room/procedural suite. Please see operative report for details. Fluoroscopic images: 19 Fluoroscopic time: 104.8 seconds Cumulative dose: NA, mGym2; 39.71; mGy Imaging documents an anterior and lateral projection sequence of images during kyphoplasty at the L2 level. Pre-existing L3 kyphoplasty is noted. There is maintenance of the spinal canal. Small amount of extravasation of contrast noted extending anteriorly into the RIGHT. Refer to procedural note for complete description. Impressions: 1. Fluoroscopic guidance for surgical planning and confirmation during L2 kyphoplasty. Electronically Signed: Niranjan Stahl MD at 19:10 EST , RAD/Spine 1 View Any Level IMPRESSION: undefined
[2022-04-17] MEDS: Clindamycin 900 MG/50 ML BAG 75 MG IV (15:59)
[2022-04-17] MEDS: Lidocaine 1% (20 ml mdv) 20 ML Vial (16:20)
[2022-04-17] MEDS: Bupivacaine Mpf 0.5% 30 ML VIAL (16:20)
--- NOTE | 2022-04-17 16:38 | PCM.OPRPT ---
Report of Operation Date of Procedure: 04/17/22 Description of Surgical Findings:: PROCEDURES: 1. Ale balloon kyphoplasty at L2 b 2. Insertion of Ale HV?R bone cement under low pressure at L2 3. Bone biopsy at L2 4. Fluoroscopic guidance and interpretation of images PREOPERATIVE DIAGNOSES: Age related osteoporosis, acute compression fracture of L2 POSTOPERATIVE DIAGNOSES: Age-related osteoporosis, acute compression fracture of L2 ANESTHESIA: MAC COMPLICATIONS: None BLOOD LOSS: Minimal PROCEDURE IN DETAIL: History and physical today was reviewed. Risks and benefits of procedure explained. The patient understood, agreed to procedure, informed consent was obtained. IV inserted per routine protocol. The patient was taken to the operating room, placed in the prone position with a pillow positioned underneath the chest. A 900 mg of clindamycin IV piggyback was infused per anesthesia. The upper and middle back area was prepped and draped in a sterile fashion using iodine x3. Under direct visualization with fluoroscopy with the C-arm, which brought into position on AP as well as lateral view at the L2 level., the L2 pedicle was then identified. In the view of the collapsed L2, a transpedicular approach to the vertebral body was appropriate. Starting on the left side at L2 level, the skin and subcutaneous tissue anesthetized approximately 10 cc of 1% lidocaine and quarter percent Marcaine mixed using a 25-gauge needle followed by a 25-gauge 3-1/2 inch spinal needle directed towards the pedicle of L2 the skin was then nicked with a 15-gauge blade using 11-gauge trocar was advanced through the L2 pedicle through the junction of the pedicle and the vertebral body on the left side. Position was then confirmed on AP as well as lateral view. Following satisfactory placement of the needle to make sure it is further off the midline and interlaminar space. The stylet of the needle was then removed. Advancement of the trocar was in slow increments on AP as well as lateral view once satisfactory positioning of the trocar at approximately 2 cm passing the posterior border of the vertebral body a bone biopsy was then taken under direct visualization fluoroscopy on a lateral view and it was sent for pathology, a 30 mL inflatable bone tamp was then inserted through the cannula and advanced under direct fluoroscopic guidance into the vertebral body near the anterior cortex., The biopsy was then taken at the L2 level. After completion of the entry into the vertebral body, a balloon tamp utilizing radiopaque marker bands on the bone tamp were identified using AP and lateral images. Once bone tamp were in position, they were inflated to approximately 2 mL and making sure that the pressure is not passing 250 psi. Expansion of the bone tamp was then done sequentially in an increments of 0.25 to 0.5 mL of contrast with a careful attention was being paid to the inflation pressure and the balloon position. The inflation was then monitored on AP and lateral view images. The final balloon volume was 2.2 mL on the left side at L2 level not There was no breach of the lateral wall or the anterior cortex of the vertebral body. Direct reduction of the fracture was then achieved. Endplate movement was then noticed and approximately 5 mm of the height oriental orthodox was achieved at L2 . Under fluoroscopic imaging and a bone void filler, internal fixation was achieved through a low pressure injection of a Kyphon HV-R bone cement. The cavity was then filled with a total volume of 5.2 mL on the left side at L2 level. Once the bone cement had hardened, the cannula was then removed. Once the cannula was removed and satisfactory hemostasis was maintained, confirmation on AP as well as lateral view to confirm correct placement of the contrast without any posterior spread of the cement towards the epidural canal or foramens, the incision as then closed with a 4-0 Vicryl at the skin. The patient was kept in the prone position for approximately 10 minutes post-cement injection. The patient was then turned into supine position, monitored briefly and returned to PACU. The patient was moving both of her lower extremities at the same time without any apparent neurological deficits. Throughout the procedure, there were no intraoperative complications. ESTIMATED BLOOD LOSS: Minimal less than 20 mL ASSESSMENT AND PLAN: This is an 87-year-old female with H related osteoporosis, acute compression fracture of L2 status post Ale balloon kyphoplasty of L2, and insertion of HV?R bone cement under low pressure at L2, biopsy of L2 under fluoroscopic guidance patient will continue her current medications her Coumadin will be held for today and she will resume it tomorrow, patient will possibly be discharged tomorrow if she met the discharge criteria per the hospitalist, postop instructions were given to the patient as well as per family members.
[2022-04-17] MEDS: Bacitracin 500 UNITS/GM PACKET (16:40)
[2022-04-17] MEDS: Magnesium Chloride 64 MG Delay Rel.Tablet 128 MG PO (21:07)
[2022-04-17] MEDS: Atenolol 50 MG Tablet PO (21:07)
--- NOTE | 2022-04-18 | IMM_PTH ---
PATIENT: JOYCE SOLOMON LOC: MS3 U#:[id number] AGE/SX: 87/F ROOM: [facility] [place] RE04/10/[address]: Dr. Hood Maza MD : 1935 BED: 1 DIS: 04/18/2022 SPEC #: [id number] RECD: 04/19/22 12:29 STATUS: KALPESH AURELIANO #: [id number] HILDA: 04/18/22 00:[address]: Vito Hunter DEPT: IMMUNOHISTOCHEMISTRY RECD BY: Sol Chamorro ENTERED: 04/19/22 12:30 SP TYPE: IMMUNO OTHR DR: MD Dr. Richy Lynn MD Dr. Nana Yaa Koram, MD Dr. Nicholas F Kotsonis, MD Tissues: Vertebra, NOS Procedures: CK8 (add) Pankeratin (initial) PHYSICIAN & [place] [id number] SPECIMEN INFORMATION: Tissue Source: L2 bone biopsy Clinical Info: Osteoporosis, compression fracture L2 Specimen Number: [id number] CPT code: 26667, 76741 METHODOLOGY: Deparaffinized sections of prefer/formalin-fixed tissue or PAP/DQ stained slides are incubated with monoclonal/polyclonal antibodies/oligonucleotide probes. Localization is made via biotin free immunoperoxidase method. Appropriate controls are performed and reacted as expected. Results on target cell population are indicated in the following table: RESULTS: ANTIBODY / CLONE RESULT AE1-3 (AE1/AE3/PCK26) negative CK8 ([id number]) negative These tests were developed and their performance characteristics determined by [facility]. They may not have been cleared or approved by the U.S. Food and Drug Administration. The FDA has determined that such clearance or approval is not necessary. The above immunohistochemical/dualISH markers are ordered and reviewed by the Pathologist. INTERPRETATION: L2 bone, core biopsy: Negative for malignancy. SJ:perry 04/22/2022
--- NOTE | 2022-04-18 | BON_PTH ---
PATIENT: JOYCE SOLOMON LOC: MS3 U#:[id number] AGE/SX: 87/F [place]OM: [facility] [place] RE04/10/[address]: Dr. Hood Maza MD : 1935 BED: 1 DIS: 04/18/2022 SPEC #: [id number] RECD: 04/18/22 11:42 STATUS: KALPESH [place] #: [id number] HILDA: 04/18/22 00:[address]: Vito Hunter DEPT: SURGICAL PATHOLOGY RECD BY: Mason Hopkins ENTERED: 04/18/22 11:42 SP TYPE: Bone OTHR DR: MD Dr. Richy Lynn MD Dr. Jeffrey Zackary, MD Dr. Nana Yaa Koram, MD Dr. Nicholas F Kotsonis, MD Tissues: Vertebra, NOS Procedures: Decalcification bone/plaque Surgery Specimen Level V Comments: @ Ordering doctor for DEC edited from to @ by PRADEEP at 04/18/22 1509 @ Ordering doctor for SUIV edited from to @ by PRADEEP at 04/18/22 1509 @ Submitting doctor edited from to @ by RGOOD at 04/18/22 1509 HEADER OPERATION: Balloon kyphoplasty L2 PRE-OP DIAGNOSIS: Age-related osteoporosis, compression fracture of L2 TISSUE SUBMITTED: L2 bone biopsy MICROSCOPIC DIAGNOSIS L2 bone, core biopsy: A piece of bone with callous formation, clinically compression fracture L2. Negative for malignancy. See comment. MACY:perry 04/19/2022 COMMENT Immunohistochemistry ([id number]) supports the above diagnosis. MICROSCOPIC DESCRIPTION Slides are reviewed. GROSS DESCRIPTION Received in fixative is one container labeled with the patient's name and designated L2 bone biopsy. The specimen consists of a piece of bone measuring 0.3 x 0.1 x 0.1 cm. The entire specimen is submitted in one cassette after decalcification. / SJ:perry 04/18/2022 TC:5 CPT: 67860, 03451
[2022-04-18 04:00] VITALS: BP 118/34; PULSE 74; RESP 18; TEMP 36.9; O2SAT 93
[2022-04-18] MEDS: Acetaminophen 500 MG Tablet 1000 MG PO ×2 (04:29→13:28)
[2022-04-18 07:18] LABS: Absolute Lymphocyte Count 1.62 X10^3/uL (0.83-4.51); Absolute Neutrophil Count 4.6 X10^3/uL (2.0-7.7); Basophil# 0.06 X10^3/uL; Basophil% 0.8 % (0-1); Eosinophil# 0.28 X10^3/uL; Eosinophils% 3.8 % (0-5); Hematocrit 38.2 % (37-47); Hemoglobin 11.5 g/dL (12.0-15.0); Lymphocyte # 1.62 X10^3/ul (0.83-4.51); Lymphocyte % 21.8 % (19-41); Mean Corp Hgb Conc 30.1 g/dL (32-36); Mean Corpuscular Hgb 30.3 pg (27.0-32.0); Mean Corpuscular Volume 100.8 fL (81-99); Mean Platelet Vol. 9.2 fl (6.2-12.0); Monocyte# 0.85 X10^3/uL; Monocyte% 11.4 % (0-10); NRBC Flagged by Analyzer 0 % (0-5); Neutrophil # 4.58 X10^3/uL (2.7-7.7); Neutrophil % 61.5 % (47-70); Platelet Count 361 K/mm3 (150-450); RBC Distribution Width CV 13.8 % (11.6-14.6); RBC Distribution Width SD 50.6 fl (35.1-43.9); Red Blood Count 3.79 M/mm3 (4.2-5.4); White Blood Count 7.4 K/mm3 (4.4-11.0)
[2022-04-18 07:46] LABS: Anion Gap 7 (5-15); BUN 18 mg/dL (7-18); BUN/Creat Ratio 19.1 RATIO (10-20); Calcium,Total 9.5 mg/dL (8.5-10.1); Chloride 99 mmol/L (98-107); Creatinine, Serum 0.94 mg/dL (0.55-1.02); EST Glomerular Filtration Rate 60 mL/min (>60); Est Glom Filt Rate - Afr Amer 72 mL/min (>60); Estimated Creatinine Clearance 30.86 ml/min; Glucose 86 mg/dL (74-106); Potassium 3.3 mmol/L (3.5-5.1); Sodium Level 134 mmol/L (136-145)
[2022-04-18] MEDS: Atenolol 25 MG Tablet PO (08:00)
[2022-04-18] MEDS: Pramipexole Di-HCl 0.125 MG Tablet PO ×3 (08:00→16:48)
[2022-04-18] MEDS: Polyethylene Glycol 3350 17 GM PACKET PO (08:00)
[2022-04-18] MEDS: Losartan Potassium 100 MG Tablet PO (08:00)
[2022-04-18] MEDS: Cholecalciferol (VIT D3) 25 MCG TABLET (1,000 UNITS) PO (08:00)
[2022-04-18] MEDS: Senna/Docusate Sodium 1 Tablet 2 TABLET PO (08:00)
[2022-04-18] MEDS: amLODIPine 5 MG Tablet PO (08:00)
[2022-04-18] MEDS: Ferrous Sulfate 325 MG Tablet PO (08:00)
[2022-04-18] MEDS: Calcium Carb/Vitamin D 1 TABLET Tablet PO (08:01)
--- NOTE | 2022-04-18 09:54 | CASEMGMT ---
Social Work SW met with pt and niece to discuss discharge plan. Pt and niece are agreeable that pt cannot return home at time of discharge and pt prefers to go to [facility]. MINNIE updated Aruna discharge behavioral modification assistant and referral will be sent. MINNIE will await determination of acceptance. Plan: [place], pending acceptance LUIS Mueller
[2022-04-18 10:00] VITALS: BP 155/68; PULSE 66; RESP 18; TEMP 36.6; O2SAT 95
--- NOTE | 2022-04-18 10:07 | CASEMGMT ---
Discharge Rn Office This bid writer sent referral to Claudia at [place] via [facility]. Rolf SYLVESTER Test Preparation Tutor
--- NOTE | 2022-04-18 13:12 | CASEMGMT ---
Discharge Heel Sorter Patient has been accepted at [facility]. MINNIE Magallanes notified. Rolf SYLVESTER Pensionholder Information Clerk
[2022-04-18] MEDS: Potassium Chloride Oral Tablet 20 MEQ 60 MEQ PO (13:33)
[2022-04-18 14:07] VITALS: BP 145/70; PULSE 79; RESP 18; TEMP 36.5; O2SAT 95
--- NOTE | 2022-04-18 14:16 | TREXTCAR_ITS ---
Diet Diet Order/Speech Therapy: 04/17/22 18:16 Diet: Cardiac - Heart Healthy Is pt able to select menu?: Yes Diet Comments: gluten free foods Routine Orders/Code Status Routine Lab Work: CBC and BMP Code Status: DNRCC Wound(s) LUMBAR BACK: Wound Type: Surgical Incision Therapies Physical Therapy: Eval and Treat Occupational Therapy: Eval and Treat Problem/Diagnosis (1) Debility: Status: Acute Code(s): R53.81 - Other malaise Plan 1. Back pain and debility due to lumbar compression fracture * recently had kyphoplasty for L3 compression fracture * now has new L2 compression fracture from spinal lumbar CT. * neurontin on hold per patient request * PT/OT on board * Dr Gardner of pain management on board; plan for kyphoplasty today as an add- on as the OR got backed up yesterday * fall precautions 2. HTN/A. fib ? Blood pressures are stable, can resume her home blood pressure medications ? Her Coumadin is on hold secondary to the kyphoplasty 3. Osteoporosis ? Stable ? Continue with her home medications 4. Restless leg syndrome ? Stable ? Continue with her home medications DVT: SCDs Allergies/Procedures Done in Hospital Allergies cefazolin [From Ancef] Allergy (Severe, Verified 04/10/22 16:47) Swelling Thoat and mouth swelling silk Allergy (Intermediate, Verified 04/10/22 16:47) itching beet [Beet] Allergy (Verified 04/10/22 16:47) Hives cantaloupe Allergy (Verified 04/10/22 16:47) Food Allergy HIVES eggplant Allergy (Verified 04/10/22 16:47) Hives levofloxacin [From Levaquin] Allergy (Verified 04/10/22 16:47) Unknown mold Allergy (Verified 04/10/22 16:47) NEEDS FOLLOW-UP Penicillins Allergy (Verified 04/10/22 16:47) Unknown tomato Allergy (Verified 04/10/22 16:47) Food Allergy wheat Allergy (Verified 04/10/22 16:47) Hives gabapentin [From Neurontin] Adverse Reaction (Verified 04/10/22 16:47) Other meloxicam [From Mobic] Adverse Reaction (Verified 04/10/22 16:47) Other oxycodone [From OxyIR] Adverse Reaction (Verified 04/10/22 16:47) Nausea risedronate sodium [From Actonel] Adverse Reaction (Verified 04/10/22 16:47) Other CONCENTRATES Allergy (Uncoded 04/10/22 16:47) Hives specifically juices from concentrate fermented foods Allergy (Uncoded 04/10/22 16:47) Itching no sauerkraut, yogurt, vinegar, aged cheeses Procedures: - (Kyphoplasty) Type of Care/Length of Stay Estimated LOS: Convalescent Care Less Than 30 days Type of Care Needed: Skilled Rehab Potential: Good Prognosis: Good Additional Orders/Day of Discharge Day of Discharge: 04/18/22 Discharge Plan Admission Admit Date/Time: 04/10/22 21:17 Attending Provider: Hood Maza Primary Care Provider: Doyle Swenson Consulting Providers: Richy Ferguson ; Vito Hunter ; Fely Jimenez Discharge Orders/Prescriptions Prescriptions: Continued Prolia 60 mg/mL syringe 60 mg SC [id number] Label Comments: due February Rx Instructions: due in february amlodipine 5 mg tablet 5 mg PO DAILY ropinirole 0.5 mg tablet 0.25 mg PO 4X/DAY atenolol 25 mg tablet 25 mg PO QAM Label Comments: TAKE 1 TABLET BY MOUTH IN THE MORNING atenolol 50 mg tablet 50 mg PO QPM ferrous sulfate 325 mg (65 mg iron) tablet 325 mg PO DAILY cholecalciferol (vitamin D3) 1,000 UNIT capsule 1,000 unit PO DAILY acetaminophen 500 mg tablet 500 mg PO Q6H PRN (Reason: Pain) losartan 100 MG tablet 100 mg PO DAILY magnesium oxide 420 mg tablet 420 mg PO QHS Label Comments: TAKE 1 TABLET BY MOUTH ONCE DAILY calcium carbonate-vitamin D2 600 mg calcium- 200 unit Tablet 1 tab PO BID furosemide 20 mg tablet 10 mg PO DAILY Label Comments: TAKE 1 TABLET BY MOUTH IN THE MORNING sennosides-docusate sodium [Stool Softener-Stimulant Laxat] 8.6-50 mg tablet 2 tab PO BID gabapentin 100 mg Capsule 100 mg PO 0800,1200,1800 30 Days Qty: 90 0RF hydrocodone-acetaminophen 5-325 mg Tablet 1 tab PO Q4H PRN PRN (Reason: pain 4-5) 3 Days Qty: 18 0RF warfarin 2 mg Tablet 2 mg PO QMWF warfarin 3 mg Tablet 3 mg PO SUTUTHSA Referrals / Follow Up: Doyle Swenson MD [Primary Care Provider] - Disposition Disposition (needs filled in before D/C Order can be placed): [facility]
--- NOTE | 2022-04-18 14:20 | PCM.DC.SUM ---
Providers Date of Admission: 04/10/22 Primary Care Physician: Dr. Doyle Swenson MD Consultations 04/11/22 10:56 Consult: Pain Management Routine Consulting Provider: Vito Hunter Reason for Consult: L2 compression fracture EMERGENT Consult: No MD Notified: Yes Date Notified: 04/11/22 Time Notified: 10:56 Method of Notification: spoke with the office Reason For Visit: INTRACTABLE LOWER BACK PAIN Diagnosis Discharge Diagnosis (1) Debility: Status: Acute Code(s): R53.81 - Other malaise Plan 1. Back pain and debility due to lumbar compression fracture recently had kyphoplasty for L3 compression fracture now has new L2 compression fracture from spinal lumbar CT. neurontin on hold per patient request PT/OT on board Dr Gardner of pain management on board; plan for kyphoplasty today as an add-on as the OR got backed up yesterday fall precautions 2. HTN/A. fib ? Blood pressures are stable, can resume her home blood pressure medications ? Her Coumadin is on hold secondary to the kyphoplasty 3. Osteoporosis ? Stable ? Continue with her home medications 4. Restless leg syndrome ? Stable ? Continue with her home medications DVT: SCDs Medications at Discharge Home Medications cholecalciferol (vitamin D3) 25 mcg (1,000 unit) capsule 1,000 unit PO DAILY supplement 12/25/16 losartan 100 mg tablet 100 mg PO DAILY HTN 03/18/18 denosumab 60 mg/mL subcutaneous syringe (Prolia) 60 mg subcut [id number] osteoporosis 10/08/19 amlodipine 5 mg tablet 5 mg PO DAILY HTN 05/01/21 calcium carb-ergocalciferol (vit D2) 600 mg calcium-200 unit tablet 1 tab PO BID supplement 07/24/21 magnesium oxide 420 mg tablet 420 mg PO QHS supplement 07/24/21 ferrous sulfate 325 mg (65 mg iron) tablet 325 mg PO DAILY supplement 11/22/21 acetaminophen 500 mg tablet 500 mg PO Q6H PRN Pain 01/01/22 atenolol 25 mg tablet 25 mg PO QAM HTN 01/01/22 atenolol 50 mg tablet 50 mg PO QPM HTN 01/01/22 furosemide 20 mg tablet 10 mg PO DAILY diuretic 01/01/22 ropinirole 0.5 mg tablet 0.25 mg PO 4X/DAY restless legs 01/01/22 sennosides 8.6 mg-docusate sodium 50 mg tablet (Stool Softener-Stimulant Laxative) 2 tab PO BID stool softener 02/16/22 gabapentin 100 mg capsule 100 mg PO 0800,1200,1800 30 days #90 caps 03/12/22 hydrocodone-acetaminophen 5-325mg 5mg-325mg 1 tab PO Q4H PRN PRN pain 4-5 3 days #18 tabs 03/12/22 warfarin 2 mg tablet 2 mg PO QMWF 04/10/22 warfarin 3 mg tablet 3 mg PO SUTUTHSA 04/10/22 Hospital Course Operations None Procedures - (Kyphoplasty) Summary of Care Provided Minutes Spent on Discharge: 40 Hospital Course: Per HPI: JOYCE SOLOMON, is a 87 F with a significant history of atrial fibrillation on Coumadin; L3 compression fracture who had a kyphoplasty in February [address] Gardner presenting with recurring excruciating progressively worsening lower back pain that started about 3 days ago.? She described the pain as a feeling of being on fire.? The pain radiates to her bilateral groin and into bilateral thighs where she has numbness. She reported because of the pain she is unable to eat or drink.? She felt nauseous and weak.? She nearly passed out because of the pain.? She reported that movement aggravates the pain and lying flat makes the pain improves. Emergency department doctor reports normal rectal tone exams on examination Hospital Course: 1. Back pain and debility secondary to an L2 compression fracture?87-year-old female presented to the hospital with intractable back pain secondary to a fall which caused an L2 compression fracture. She had recently had a kyphoplasty for an L3 compression fracture. Unfortunately her Coumadin for her A. fib was supratherapeutic so surgery was delayed for a few days and then as an add-on her case was delayed again because of OR run times however she did have her kyphoplasty done yesterday and her pain is much improved. Physical therapy did evaluate her and did recommend continued rehab at [facility], I discussed with her the plan for discharge today and she expressed understanding of the risk and benefits of going to rehab and would like to go today. No changes were made to any of her home medications and she can restart her Coumadin for her A. fib. 2. Hypertension, A. fib, osteoporosis, restless leg syndrome are all chronic medical condition which complicate her care at her home medications were continued where appropriate Physical Exam Narrative General: Alert, Oriented x3, Cooperative, No apparent distress HEENT: Atraumatic, PERRLA, EOMI, Normocephalic Oral: Moist Mucosa Neck: Supple, No JVD Lungs: Diminished, Normal air movement, No rhonchi, No wheeze, No rales Cardiovascular: Regular rate, Regular Rhythm, Normal S1, Normal S2, No murmurs Abdomen: Soft, Non Tender, Non-Distended, No Hepato-splenomegaly Extremities: No edema, Capillary Refill Less than 3 Seconds Skin: No rashes, No breakdown Musculoskeletal: No Tenderness to Palpation of Joints or Extremities Neurological: Cranial nerves II-XII grossly intact, Motor Exam 5/5 strength throughout, Sensory exam intact to light touch and pain Psych/Mental Status: Normal Affect, Appropriate Weight / BMI Weight Weight: 172 lb 6.424 oz Body Mass Index (BMI) 33.6 ABG / Lab / Microbiology Data Result Diagrams: 04/18/22 06:38 04/18/22 06:38 Laboratory: Laboratory Results - last 24 hr 04/18/22 06:38: WBC 7.4, RBC 3.79 L, Hgb 11.5 L, Hct 38.2, MCV 100.8 H D, MCH 30.3, MCHC 30.1 L, RDW Std Deviation 50.6 H, RDW Coeff of [place] 13.8, Plt Count 361, MPV 9.2, Immature Gran % (Auto) 0.700, Neut % (Auto) 61.5, Lymph % (Auto) 21.8, [place] % (Auto) 11.4 H, Eos % (Auto) 3.8, Baso % (Auto) 0.8, Absolute Neuts (auto) 4.6, Absolute Lymphs (auto) 1.62, Nucleated RBC % 0 04/18/22 06:38: Sodium 134 L, Potassium 3.3 L, Chloride 99, Carbon Dioxide 28.0, Anion Gap 7, BUN 18, Creatinine 0.94, Estim Creat Clear Calc 30.86, Est GFR (MDRD) Af Amer 72, Est GFR (MDRD) Non-Af 60, BUN/Creatinine Ratio 19.1, Glucose 86, Calcium 9.5 Radiography Diagnostic Testing: Radiology Impression Spine X-Ray 04/17/22 15:55 IMPRESSION: undefined Meaningful Use Info Meaningful Use Diagnoses (Choose all that apply): None applicable Discharge Plan Admission Admit Date/Time: 04/10/22 21:17 Attending Provider: Hood Maza Primary Care Provider: Doyle Swenson Consulting Providers: Richy Ferguson ; Vito Hunter ; Fely Jimenez Discharge Orders/Prescriptions Prescriptions: Continued Prolia 60 mg/mL syringe 60 mg SC [id number] Label Comments: due February Rx Instructions: due in february amlodipine 5 mg tablet 5 mg PO DAILY ropinirole 0.5 mg tablet 0.25 mg PO 4X/DAY atenolol 25 mg tablet 25 mg PO QAM Label Comments: TAKE 1 TABLET BY MOUTH IN THE MORNING atenolol 50 mg tablet 50 mg PO QPM ferrous sulfate 325 mg (65 mg iron) tablet 325 mg PO DAILY cholecalciferol (vitamin D3) 1,000 UNIT capsule 1,000 unit PO DAILY acetaminophen 500 mg tablet 500 mg PO Q6H PRN (Reason: Pain) losartan 100 MG tablet 100 mg PO DAILY magnesium oxide 420 mg tablet 420 mg PO QHS Label Comments: TAKE 1 TABLET BY MOUTH ONCE DAILY calcium carbonate-vitamin D2 600 mg calcium- 200 unit Tablet 1 tab PO BID furosemide 20 mg tablet 10 mg PO DAILY Label Comments: TAKE 1 TABLET BY MOUTH IN THE MORNING sennosides-docusate sodium [Stool Softener-Stimulant Laxat] 8.6-50 mg tablet 2 tab PO BID gabapentin 100 mg Capsule 100 mg PO 0800,1200,1800 30 Days Qty: 90 0RF hydrocodone-acetaminophen 5-325 mg Tablet 1 tab PO Q4H PRN PRN (Reason: pain 4-5) 3 Days Qty: 18 0RF warfarin 2 mg Tablet 2 mg PO QMWF warfarin 3 mg Tablet 3 mg PO SUTUTH Referrals / Follow Up: Doyle Swenson MD [Primary Care Provider] - Disposition Disposition (needs filled in before D/C Order can be placed): Half-Way Facility Charges/Coding Visit Charges OBSV E&M: 86693 Observation care discharge
[2022-04-18 14:56] VITALS: BP 145/70; PULSE 79; RESP 18; TEMP 36.5; O2SAT 95
--- NOTE | 2022-04-18 16:55 | CASEMGMT ---
Social Work Pt has been accepted to [facility]. Physician updated and pt is ready for discharge today. SW met with pt, pt dgt and niece and explained above. They are agreeable to discharge plan. 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 PASRR completed in [facility] and sent along with discharge orders and covid results to [facility]. Nursing and [facility] updated on discharge time. Disposition: [facility], skilled level of care LUIS Mueller
--- NOTE | 2022-04-18 18:20 | NURSING ---
Report called to Jolie at [facility].
== END 2022-04-18 19:20 | disposition skilled nursing facility (03) ==
LOC: ED 21:33 → MS3 21:53
PROVIDERS: Anesthesiology Pain Medicine; Student in an Organized Health Care Education/Training Program; Admitting Provider Hospitalist; Emergency Provider Emergency Medicine; PCP Family Medicine; Visit Provider Family Medicine
PROC: (CPT 22514; principal; 2022-04-17 15:15)
DX: M80.08XA Age-related osteoporosis with current pathological fracture, vertebra(e), initial encounter for fracture (principal); J44.9 Chronic obstructive pulmonary disease, unspecified; I27.21 Secondary pulmonary arterial hypertension; I48.0 Paroxysmal atrial fibrillation; N18.32 Chronic kidney disease, stage 3b; R79.1 Abnormal coagulation profile; G25.81 Restless legs syndrome; Z79.01 Long term (current) use of anticoagulants; I12.9 Hypertensive chronic kidney disease with stage 1 through stage 4 chronic kidney disease, or unspecified chronic kidney disease; Z79.899 Other long term (current) drug therapy; G47.33 Obstructive sleep apnea (adult) (pediatric); Z98.890 Other specified postprocedural states
CPT/HCPCS: 22514; 01942; 36415; 72020; 72131; 76000; 80048; 80053; 80076; 81001; 85025; 85610; 85730; 87426; 88305; 88307; 88311; 88341; 88342; 93005; 96361; 96374; 96375; 96376; 97110; 97116; 97162; 97166; 97530; 97535; 99218; 99251; 99252; 99285; J7030; A4216; G0378; G0463; J2405

== ENCOUNTER → 2022-04-22 | Outpatient (REF) | payer MEDICARE, BC, SELFPAY ==
[2022-04-22 08:59] LABS: Absolute Lymphocyte Count 1.78 X10^3/uL (0.83-4.51); Absolute Neutrophil Count 3.8 X10^3/uL (2.0-7.7); Basophil# 0.05 X10^3/uL; Basophil% 0.8 % (0-1); Eosinophil# 0.21 X10^3/uL; Eosinophils% 3.2 % (0-5); Hematocrit 37.7 % (37-47); Lymphocyte # 1.78 X10^3/ul (0.83-4.51); Lymphocyte % 27.1 % (19-41); Mean Corp Hgb Conc 31.8 g/dL (32-36); Mean Corpuscular Hgb 32.6 pg (27.0-32.0); Mean Corpuscular Volume 102.4 fL (81-99); Mean Platelet Vol. 10.1 fl (6.2-12.0); Monocyte# 0.65 X10^3/uL; Monocyte% 9.9 % (0-10); NRBC Flagged by Analyzer 0 % (0-5); Neutrophil % 57.9 % (47-70); Platelet Count 270 K/mm3 (150-450); RBC Distribution Width CV 16.4 % (11.6-14.6); RBC Distribution Width SD 52.9 fl (35.1-43.9); Red Blood Count 3.68 M/mm3 (4.2-5.4); White Blood Count 6.6 K/mm3 (4.4-11.0)
[2022-04-22 09:15] LABS: Anion Gap 6 (5-15); BUN 21 mg/dL (7-18); BUN/Creat Ratio 23.2 RATIO (10-20); Calcium,Total 9.6 mg/dL (8.5-10.1); Chloride 100 mmol/L (98-107); EST Glomerular Filtration Rate 63 mL/min (>60); Est Glom Filt Rate - Afr Amer 76 mL/min (>60); Glucose 104 mg/dL (74-106); Potassium 4.6 mmol/L (3.5-5.1); Sodium Level 134 mmol/L (136-145)
[2022-04-22 09:16] LABS: International Normalized Ratio 1.3; Prothrombin Time (Protime)PT. 15.6 SECONDS (11.7-14.9)
== END ==
LOC: OLS.WHLTCC 05:00
PROVIDERS: PCP Family Medicine; Visit Provider Internal Medicine
DX: I48.0 Paroxysmal atrial fibrillation (principal); R53.83 Other fatigue; S32.020D Wedge compression fracture of second lumbar vertebra, subsequent encounter for fracture with routine healing; S32.030D Wedge compression fracture of third lumbar vertebra, subsequent encounter for fracture with routine healing; Z98.890 Other specified postprocedural states
CPT/HCPCS: 36415; 80048; 85025; 85610

== ENCOUNTER 2022-05-18 16:03 | Emergency (ER) | payer OTHER, MEDICARE, BC, SELFPAY ==
[2022-05-18 16:04] VITALS: BP 153/77; PULSE 88; RESP 16; TEMP 37.1; O2SAT 97; BMI 33.7
--- NOTE | 2022-05-18 16:27 | EKG12_ITS ---
Test Reason : CP Blood Pressure : / mmHG Vent. Rate : 087 BPM Atrial Rate : 087 BPM P-R Int : 172 ms QRS Dur : 122 ms QT Int : 360 ms P-R-T Axes : -03 -28 -01 degrees QTc Int : 433 ms Normal sinus rhythm Right bundle branch block Septal infarct , age undetermined Abnormal ECG Confirmed by JAHAIRA URBAN, OTONIEL ([id number]), art editor VANESA BURNETT ([id number]) on 05/20/2022 1:48:51 PM Referred By: JOANNE Confirmed By:OTONIEL CAMPO MD
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
[2022-05-18 19:38] VITALS: BP 124/80; PULSE 78; RESP 15; O2SAT 0
== END 2022-05-18 19:38 | disposition home or self-care (01) ==
PROVIDERS: Emergency Provider Emergency Medicine; PCP Family Medicine; Visit Provider Emergency Medicine
DX: S20.20XA Contusion of thorax, unspecified, initial encounter (principal); J44.9 Chronic obstructive pulmonary disease, unspecified; I27.21 Secondary pulmonary arterial hypertension; I48.0 Paroxysmal atrial fibrillation; V44.6XXA Car passenger injured in collision with heavy transport vehicle or bus in traffic accident, initial encounter; Y92.410 Unspecified street and highway as the place of occurrence of the external cause; I10 Essential (primary) hypertension; Z79.01 Long term (current) use of anticoagulants; Z79.899 Other long term (current) drug therapy
CPT/HCPCS: 71046; 93005; 99284; A4216

== ENCOUNTER → 2022-05-20 | Outpatient (CLI) | payer MEDICARE, BC, SELFPAY ==
[2022-05-20 18:16] LABS: Vitamin D,25 Hydroxy 71.5 ng/mL
[2022-05-20 18:25] LABS: Anion Gap 9 (5-15); BUN 26 mg/dL (7-18); BUN/Creat Ratio 27.8 RATIO (10-20); Calcium,Total 10.3 mg/dL (8.5-10.1); Chloride 100 mmol/L (98-107); Creatinine, Serum 0.94 mg/dL (0.55-1.02); EST Glomerular Filtration Rate 60 mL/min (>60); Est Glom Filt Rate - Afr Amer 73 mL/min (>60); Glucose 120 mg/dL (74-106); Magnesium 2.2 mg/dL (1.6-2.6); Phosphorus 4.9 mg/dL (2.5-4.9); Potassium 4.1 mmol/L (3.5-5.1); Sodium Level 138 mmol/L (136-145)
[2022-05-21 08:30] LABS: PTHIN 12.5 pg/mL (18.4-80.1)
== END | disposition home or self-care (01) ==
PROVIDERS: PCP Family Medicine; Referring Provider Family Medicine; Visit Provider Family Medicine
DX: M81.0 Age-related osteoporosis without current pathological fracture (principal)
CPT/HCPCS: 36415; 80048; 82306; 82330; 83735; 83970; 84100; 84443

== ENCOUNTER → 2022-06-18 | Outpatient (CLI) | payer MEDICARE, BC, SELFPAY ==
--- NOTE | 2022-06-18 10:35 | BD_ITS ---
STUDY: DUAL ENERGY X-RAY ABSORPTIOMETRY / DXA REASON FOR EXAM: Female, 87 years old. MENOPAUSAL TECHNIQUE: Bone Mineral Density (BMD) measurements of lumbar spine and bilateral hips were obtained. COMPARISON: Comparison is made with prior study dated 06/08/2020. FINDINGS: Lumbar Spine (L1-L4): g/cm2 (0.869) / T-score (-1.5) / Z-score (1.3) Findings are suggestive of osteopenia with a low fracture risk. Left Femur Total: g/cm2 (0.747) / T-score (-1.6) / Z-score (0.7) Left Femoral Neck: g/cm2 (0.537) / T-score (-2.8) / Z-score (-0.3) Right Femur Total: g/cm2 (0.695) / T-score (-2.0) / Z-score (0.3) Right Femoral Neck: g/cm2 (0.565) / T-score (-2.6) / Z-score (0.0) The T-Scores on the most recent prior examination were: Lumbar Spine (L1-L4): There has been improvement of bone density since the previous examination. Left Femur Total: which represents an improvement of 4.3%. Right Femur Total: which represents an improvement of 3.9%. BD/Dexa Bone Density Study IMPRESSION: The patient is considered osteoporotic as outlined below according to World [employer] Organization (WHO) criteria with a high fracture risk. There has been improvement of bone density since the previous examination. Reference Information: The T-score is the number of standard deviations above or below the standard which is normal for young adults at their peak bone mineral density. The World Health Organization (WHO) interprets the T-scores as follows: Above -1 Normal bone density Between -1 and -2.5 Osteopenia Equal to / or below -2.5 Osteoporosis As a practical clinical guideline, osteopenia may be graded as follows: Mild -1 through -1.5 Moderate -1.6 through -2.0 Severe -2.1 through -2.4 The Z-score is the number of standard deviations above or below age-matched controls. A Z-score of less than -1.5 would be considered abnormal. References: 1. NIH Osteoporosis and Related Bone Diseases www osteo.org 2. International Society for Clinical Densitometry www iscd.org 3. National Osteoporosis Foundation www nof.org Electronically Signed: Chris Clark MD at 9:14 EST ,
== END | disposition home or self-care (01) ==
PROVIDERS: PCP Family Medicine; Referring Provider Family Medicine; Visit Provider Family Medicine
DX: Z78.0 Asymptomatic menopausal state (principal)
CPT/HCPCS: 77080

== ENCOUNTER → 2022-08-26 | Outpatient (CLI) | payer MEDICARE, BC, SELFPAY ==
[2022-08-26 15:42] LABS: Absolute Lymphocyte Count 1.93 X10^3/uL (0.83-4.51); Absolute Neutrophil Count 5.2 X10^3/uL (2.0-7.7); Basophil# 0.06 X10^3/uL; Basophil% 0.7 % (0-1); Eosinophils% 1.2 % (0-5); Hematocrit 41.5 % (37-47); Hemoglobin 13.1 g/dL (12.0-15.0); Lymphocyte # 1.93 X10^3/ul (0.83-4.51); Lymphocyte % 23.7 % (19-41); Mean Corp Hgb Conc 31.6 g/dL (32-36); Mean Corpuscular Volume 95.2 fL (81-99); Mean Platelet Vol. 9.8 fl (6.2-12.0); Monocyte# 0.69 X10^3/uL; Monocyte% 8.5 % (0-10); NRBC Flagged by Analyzer 0 % (0-5); Neutrophil # 5.24 X10^3/uL (2.7-7.7); Neutrophil % 64.4 % (47-70); Platelet Count 365 K/mm3 (150-450); RBC Distribution Width CV 14.6 % (11.6-14.6); RBC Distribution Width SD 51.2 fl (35.1-43.9); Red Blood Count 4.36 M/mm3 (4.2-5.4); White Blood Count 8.1 K/mm3 (4.4-11.0)
[2022-08-26 15:51] LABS: International Normalized Ratio 1.3; Prothrombin Time (Protime)PT. 15.5 SECONDS (11.7-14.9)
[2022-08-26 16:00] LABS: Erythrocyte Sedimentation Rate 15 mm/hr (0-30)
[2022-08-26 16:54] LABS: Vitamin D,25 Hydroxy 39.6 ng/mL
[2022-08-26 17:47] LABS: Anion Gap 4 (5-15); BUN 20 mg/dL (7-18); BUN/Creat Ratio 27.7 RATIO (10-20); Bilirubin, Direct 0.11 mg/dL (0.00-0.30); Calcium,Total 9.2 mg/dL (8.5-10.1); Chloride 101 mmol/L (98-107); Creatinine, Serum 0.72 mg/dL (0.55-1.02); EST Glomerular Filtration Rate 81 mL/min (>60); Est Glom Filt Rate - Afr Amer 98 mL/min (>60); Glucose 110 mg/dL (74-106); Potassium 3.9 mmol/L (3.5-5.1); Sodium Level 136 mmol/L (136-145); Thyroid Stim Hormone (TSH) 1.08 uIU/mL (0.358-3.74)
[2022-08-27 08:05] LABS: PTHIN 92.1 pg/mL (18.4-80.1)
[2022-08-27 13:31] LABS: AST(SGOT) 21 U/L (15-37); Alanine Aminotransfer ALT/SGPT 23 U/L (13-56); Albumin, Serum 3.8 g/dL (3.2-5.0); Alkaline Phosphatase 59 U/L (45-117); Globulin 3.5 g/dL (2.2-4.2); Protein, Total 7.3 g/dL (6.4-8.2)
== END | disposition home or self-care (01) ==
LOC: MTLAB 12:37
PROVIDERS: PCP Family Medicine; Referring Provider Family Medicine; Visit Provider Family Medicine
DX: I48.91 Unspecified atrial fibrillation (principal); L50.9 Urticaria, unspecified; E83.52 Hypercalcemia
CPT/HCPCS: 36415; 80048; 80076; 82248; 82306; 82330; 83970; 84443; 85025; 85610; 85652

== ENCOUNTER → 2022-10-02 | Outpatient (CLI) | payer MEDICARE, BC, SELFPAY ==
--- NOTE | 2022-10-02 10:45 | RAD_ITS ---
EXAM: XR RIGHT KNEE COMPLETE, 4 OR MORE VIEWS CLINICAL INDICATION: pain TECHNIQUE: Four or more views of the right knee. COMPARISON: Right knee radiographs of 11/18/2018. FINDINGS: BONES/JOINTS: Minimal degenerative spurring again noted about all 3 compartments of the knee. Joint spaces are preserved No acute fracture. No subluxation. Normal alignment. Osseous structures remain mildly demineralized. No sclerotic or destructive changes observed. SOFT TISSUES: Unremarkable. No soft tissue swelling or gas. No radiopaque foreign body. RAD/Knee 4 or More Views IMPRESSION: No significant interval change. Degenerative spurring again noted about all 3 compartments of the knee, without joint space narrowing. No acute findings in the right knee. Electronically Signed: Keith Zaragoza MD at 22:56 EDT ,
== END | disposition home or self-care (01) ==
LOC: MTRAD 10:44
PROVIDERS: PCP Family Medicine; Referring Provider Family Medicine; Visit Provider Family Medicine
DX: M25.561 Pain in right knee (principal)
CPT/HCPCS: 73564

== ENCOUNTER → 2022-11-06 | Outpatient (CLI) | payer MEDICARE, BC, SELFPAY ==
[2022-11-06 17:48] LABS: ALB/GLOB Ratio 0.9 RATIO (0.9-2.4); AST(SGOT) 22 U/L (15-37); Alanine Aminotransfer ALT/SGPT 22 U/L (13-56); Albumin, Serum 3.6 g/dL (3.2-5.0); Alkaline Phosphatase 61 U/L (45-117); Anion Gap 6 (5-15); BUN 22 mg/dL (7-18); BUN/Creat Ratio 26.4 RATIO (10-20); Chloride 101 mmol/L (98-107); Creatinine, Serum 0.83 mg/dL (0.55-1.02); EST Glomerular Filtration Rate 69 mL/min (>60); Est Glom Filt Rate - Afr Amer 84 mL/min (>60); Globulin 4.1 g/dL (2.2-4.2); Glucose 107 mg/dL (74-106); Potassium 4.3 mmol/L (3.5-5.1); Protein, Total 7.7 g/dL (6.4-8.2); Sodium Level 137 mmol/L (136-145); Troponin-I HS 10 pg/mL (3.0-54.0)
[2022-11-06 18:04] LABS: BNP,B-Type NATRIURETIC PEPTIDE 49.3 pg/mL (0-100)
== END | disposition home or self-care (01) ==
LOC: MFPLAB 15:09
PROVIDERS: PCP Family Medicine; Visit Provider Family Medicine
DX: R10.9 Unspecified abdominal pain (principal); R07.9 Chest pain, unspecified
CPT/HCPCS: 36415; 80053; 83880; 84484

== ENCOUNTER → 2022-11-21 | Outpatient (CLI) | payer MEDICARE, BC, SELFPAY ==
--- NOTE | 2022-11-21 15:34 | RAD_ITS ---
INDICATION: compression fx of lumbar spine -- degeneration of lumbosacral intervertebral disc -- lumbosacral radiculopathy EXAMINATION/TECHNIQUE: X-RAY - XR Spine Lumbar 2 or 3 Views COMPARISON: Lumbar spine radiographs from 04/08/2022 FINDINGS: Chronic L2 and L3 vertebral body compression fractures status post vertebroplasty (L2 vertebroplasty is new since prior exam). Stable loss of height of L2 vertebral body, approximately 25%. Stable approximately 60% loss of vertebral body height at L3 with chronic posterior retropulsion of L3 vertebral body. No new fractures identified. Stable grade 1 retrolisthesis of L2 over L3 and grade 1 retrolisthesis of L3 over L4. Chronic dextroscoliotic curvature of lumbar spine also noted. Multilevel degenerative facet arthropathy. Chronic disc space narrowing at L2-3. Remaining intervertebral disc spaces are preserved. Symmetric bilateral sacroiliac joints. No widening of pubic symphysis. Nonobstructive bowel gas pattern. Cholecystectomy clips noted. RAD/Lumbar Spine 2 or 3 Views IMPRESSION: 1. Status post vertebral plasty chronic L2 and L3 vertebral body compression fractures. 2. Chronic spondylolisthesis L2 over L3 and L3 over L4, with stable scoliotic curvature of lumbar spine. Electronically Signed: Valerio Wilkins MD at 22:33 EDT ,
== END | disposition home or self-care (01) ==
LOC: MTRAD 15:32
PROVIDERS: PCP Family Medicine; Visit Provider Nurse Practitioner Acute Care
DX: M81.0 Age-related osteoporosis without current pathological fracture (principal); M48.56XA Collapsed vertebra, not elsewhere classified, lumbar region, initial encounter for fracture; M46.96 Unspecified inflammatory spondylopathy, lumbar region; M51.37 Other intervertebral disc degeneration, lumbosacral region; M54.17 Radiculopathy, lumbosacral region; M47.817 Spondylosis without myelopathy or radiculopathy, lumbosacral region
CPT/HCPCS: 72100

== ENCOUNTER → 2022-12-18 | Outpatient (CLI) | payer MEDICARE, BC, SELFPAY ==
[2022-12-18 12:13] LABS: Hematocrit 38.6 % (37-47); Hemoglobin 11.8 g/dL (12.0-15.0); Mean Corp Hgb Conc 30.6 g/dL (32-36); Mean Corpuscular Hgb 30.1 pg (27.0-32.0); Mean Corpuscular Volume 98.5 fL (81-99); Mean Platelet Vol. 10.2 fl (6.2-12.0); Platelet Count 319 K/mm3 (150-450); RBC Distribution Width CV 12.5 % (11.6-14.6); Red Blood Count 3.92 M/mm3 (4.2-5.4); White Blood Count 6.5 K/mm3 (4.4-11.0)
[2022-12-18 12:17] LABS: International Normalized Ratio 2.1; Prothrombin Time (Protime)PT. 23.4 SECONDS (11.7-14.9)
[2022-12-18 12:33] LABS: Ferritin 66 ng/mL (8-252); Iron 61 ug/dL (50-170); Thyroid Stim Hormone (TSH) 1.37 uIU/mL (0.358-3.74)
[2022-12-18 20:56] LABS: BNP,B-Type NATRIURETIC PEPTIDE 44.6 pg/mL (0-100)
[2022-12-19 09:35] LABS: Anion Gap 6 (5-15); BUN 28 mg/dL (7-18); BUN/Creat Ratio 30.3 RATIO (10-20); Calcium,Total 9.1 mg/dL (8.5-10.1); Chloride 101 mmol/L (98-107); Creatinine, Serum 0.92 mg/dL (0.55-1.02); EST Glomerular Filtration Rate 61 mL/min (>60); Est Glom Filt Rate - Afr Amer 74 mL/min (>60); Glucose 91 mg/dL (74-106); Potassium 4.7 mmol/L (3.5-5.1); Sodium Level 134 mmol/L (136-145)
== END | disposition home or self-care (01) ==
LOC: MFPLAB 10:26
PROVIDERS: PCP Family Medicine; Visit Provider Family Medicine
DX: M79.89 Other specified soft tissue disorders (principal); I48.91 Unspecified atrial fibrillation; R06.00 Dyspnea, unspecified
CPT/HCPCS: 36415; 80048; 82728; 83540; 83880; 84443; 85027; 85610

== ENCOUNTER → 2023-01-14 | Outpatient (CLI) | payer MEDICARE, BC, SELFPAY ==
--- NOTE | 2023-01-14 13:34 | CT_ITS ---
STUDY: CT ABDOMEN AND PELVIS WITHOUT CONTRAST REASON FOR EXAM: Female, 87 years old. ABD PAIN RADIATION DOSAGE (If Supplied By Facility): CTDIvol = ( 21.01 ) mGy, DLP = ( 966.58 ) mGycm TECHNIQUE: Transaxial images were obtained from the dome of the diaphragm to the symphysis pubis without oral contrast, and without intravenous contrast. Sagittal and coronal images were reconstructed. Individualized dose optimization techniques were used for this CT. COMPARISON: Comparison is made with prior study dated July 24, 2021. FINDINGS: Calcified granuloma in the right lower lobe. Coronary artery calcification. Normal liver. There are surgical clips in the gallbladder fossa consistent with a prior cholecystectomy. Normal spleen. Normal pancreas. Normal bilateral adrenal glands. Normal right kidney. Normal left kidney. There is a moderate hiatal hernia. Normal small intestine. Normal colon. The appendix is visualized and appears normal. There is diffuse atherosclerotic calcification of the abdominal aorta, without a demonstrated aneurysm. Normal inferior vena cava. Normal retroperitoneum. Cystocele. Normal abdominal wall. Prior vertebroplasty of the L3 vertebrae. CT/Abdomen/Pelvis without Cont IMPRESSION: Moderate-sized hiatal hernia. Status post cholecystectomy. No acute abnormality is seen. Electronically Signed: Chris Clark MD at 15:25 EDT ,
== END | disposition home or self-care (01) ==
LOC: CT 13:22
PROVIDERS: PCP Family Medicine; Referring Provider Family Medicine; Visit Provider Family Medicine
DX: R10.9 Unspecified abdominal pain (principal)
CPT/HCPCS: 74176

== ENCOUNTER → 2023-01-16 | Outpatient (CLI) | payer MEDICARE, BC, SELFPAY ==
--- NOTE | 2023-01-16 13:22 | ECHOD_ITS ---
Reason For Study: soft tissue disorder Procedure This was a 2D Doppler, Color Flow transthoracic echocardiogram. The study was technically difficult. PT had difficulty with back pain when lying in the left lateral decubitus position. Exam performed in department. Left Ventricle Normal LV size. Left ventricular systolic function is normal. The estimated ejection fraction is 65 %. No regional wall motion abnormalities noted. Right Ventricle Normal RV size. Normal systolic function. Atria Normal left atrium. Normal right atrium. Mitral Valve Normal mitral valve. Mild (1+) eccentric mitral valve insufficiency. Tricuspid Valve Normal tricuspid valve. Mild to moderate (1-2+) tricuspid valve insufficiency. Pulmonary artery systolic pressure is 43 mmHg. Aortic Valve Normal aortic valve. Mild (1+) aortic valve insufficiency. Pulmonic Valve Normal pulmonic valve. Great Vessels Normal aortic root. The pulmonary artery is normal size. Normal inferior vena cava. Pericardium/Pleural No pericardial effusion. MMode/2D Measurements & Calculations LVIDd: 4.3 cm IVSd: 1.1 cm Ao root diam: 3.0 cm LVIDs: 2.7 cm LVPWd: 0.82 cm RVDd: 3.7 cm FS: 38.2 % LAV(MOD-bp): 60.9 ml LVAd ap4: 27.8 cm2 LVAd ap2: 25.5 cm2 LAV(MOD-bp) Indexed: 38.9 ml/m2 LVLd ap4: 7.7 cm LVLd ap2: 7.9 cm LAV(MOD-sp2): 60.2 ml EDV(MOD-sp4): 82.5 ml EDV(MOD-sp2): 70.4 ml LAV(MOD-sp4): 58.0 ml EDV(sp4-el): 85.5 ml EDV(sp2-el): 69.5 ml LVAs ap4: 13.4 cm2 LVAs ap2: 12.1 cm2 LVLs ap4: 5.4 cm LVLs ap2: 5.7 cm ESV(MOD-sp4): 28.4 ml ESV(MOD-sp2): 22.4 ml ESV(sp4-el): 28.3 ml ESV(sp2-el): 21.6 ml EF(MOD-sp4): 65.6 % EF(MOD-sp2): 68.2 % EF(sp4-el): 66.9 % SV(MOD-sp4): 54.1 ml SV(MOD-sp2): 48.0 ml SV(sp4-el): 57.2 ml LA dimension(2D): 3.5 cm LA A4 area: 20.4 cm2 RA A4 area: 13.8 cm2 Time Measurements MV dec time: 0.24 sec Doppler Measurements & Calculations MV E max burton: 103.1 cm/sec Lat Peak E' Burton: 6.9 cm/sec Med Peak E' Burton: 5.0 cm/sec MV A max burton: 109.3 cm/sec E/E' lat: 14.8 E/E' med: 20.5 MV E/A: 0.94 MV V2 max: 113.8 cm/sec MV dec slope: 430.9 cm/sec2 Ao V2 max: 115.5 cm/sec MV max P.2 mmHg Ao max P.3 mmHg MV V2 mean: 73.6 cm/sec Ao V2 mean: 73.8 cm/sec MV mean P.4 mmHg Ao mean P.4 mmHg MV V2 VTI: 41.5 cm Ao V2 VTI: 28.3 cm AV (velocity ratio): 0.92 AI max burton: 407.4 cm/sec LV V1 max: 93.0 cm/sec PA V2 max: 67.8 cm/sec AI max P.4 mmHg LV V1 max P.5 mmHg PA V2 mean: 50.0 cm/sec AI dec slope: 204.7 cm/sec2 LV V1 mean P.5 mmHg AI P1/2t: 582.8 msec LV V1 mean: 57.5 cm/sec LV V1 VTI: 26.1 cm TR max burton: 315.2 cm/sec TR max P.7 mmHg ECHO/Echo Complete Interpretation Summary Normal LV size. Left ventricular systolic function is normal. The estimated ejection fraction is 65 %. Mild (1+) eccentric mitral valve insufficiency. Pulmonary artery systolic pressure is 43 mmHg. Ordering Physician: Hussein Swenson Referring Physician: Hussein Swenson Performed By: Nettie Juarez, NATALIE, RVT
== END | disposition home or self-care (01) ==
LOC: CVS 13:20
PROVIDERS: PCP Family Medicine; Referring Provider Family Medicine; Visit Provider Family Medicine
DX: M79.89 Other specified soft tissue disorders (principal); I34.0 Nonrheumatic mitral (valve) insufficiency
CPT/HCPCS: 93306

== ENCOUNTER 2023-02-25 11:07 | Outpatient (CLI) | payer MEDICARE, BC, SELFPAY ==
[2023-02-25 13:17] LABS: Ferritin 90 ng/mL (8-252)
== END 2023-02-25 23:59 | disposition home or self-care (01) ==
LOC: MTLAB 11:08
PROVIDERS: PCP Family Medicine; Referring Provider Internal Medicine Pulmonary Disease; Visit Provider Internal Medicine Pulmonary Disease
DX: G47.33 Obstructive sleep apnea (adult) (pediatric) (principal); I48.91 Unspecified atrial fibrillation; G25.81 Restless legs syndrome
CPT/HCPCS: 36415; 82728

== ENCOUNTER → 2023-04-08 | Outpatient (CLI) | payer MEDICARE, BC, SELFPAY ==
--- NOTE | 2023-04-08 12:31 | RAD_ITS ---
STUDY: X-RAY - PELVIS AND RIGHT HIP REASON FOR EXAM: Female, 88 years old. Pain. TECHNIQUE: 3 views of the pelvis and hip. COMPARISON: April 08, 2022. FINDINGS: There is a non-specific bowel gas pattern. Normal visualized soft tissue structures. Stable osteopenia with moderate lower lumbosacral spondylosis. Mild arthrosis of the SI joints. Deformity of the right parasymphyseal region compatible with healed remote injury, unchanged. Moderate arthrosis of the right hip and mild arthrosis of the left hip, unchanged. RAD/HIP, UNI W/ Pelvis 2-3 Views IMPRESSION: Stable osteopenia, osteoarthritic changes and posttraumatic changes of the right parasymphyseal region. No new or acute abnormality. Electronically Signed: Andres Chauhan MD at 9:30 EST ,
== END | disposition home or self-care (01) ==
LOC: MTRAD 12:31
PROVIDERS: PCP Family Medicine; Referring Provider Family Medicine; Visit Provider Family Medicine
DX: M25.551 Pain in right hip (principal)
CPT/HCPCS: 73502

== ENCOUNTER 2023-05-12 07:28 | Emergency (ER) | payer MEDICARE, BC, SELFPAY ==
[2023-05-12 07:31] VITALS: BP 201/81; PULSE 90; RESP 15; TEMP 37.7; O2SAT 90
[2023-05-12 07:37] VITALS: O2SAT 93
--- NOTE | 2023-05-12 07:45 | EX.ED.DYSGE1 ---
HPI History of Present Illness Chief Complaint: Fever Informant: patient and EMS Narrative Narrative: Patient comes in by EMS for fever muscle aches and headache. Patient states she has had symptoms for 3 days. Her appetite is down but she is able to eat and drink and has no nausea vomiting or diarrhea or abdominal pain. She does have a slight cough. But she does not feel short of breath. She has a history of pulmonary hypertension so checks her oxygen level. This morning it was in the high 80s but I do not know exactly what number. But she states she does not know if her machine was working right. It was evidently normal per EMS and it is normal here at 94%. When it was abnormal at home she was not more dyspneic. She has known exposure to COVID. Her daughter drove her to a doctor's appointment last week and ended up testing positive for COVID. Patient also has no urinary symptoms. [facility] Medical History (Updated 05/12/23 @ 10:[address] Jay Shields MD) Arthritis Atrial fibrillation Closed compression fracture of L2 vertebra Community acquired pneumonia COPD (chronic obstructive pulmonary disease) CPAP (continuous positive airway pressure) dependence Difficulty balancing Essential (primary) hypertension Fatigue Hiatal hernia History of stress test HTN (hypertension) Hypertensive emergency Incomplete right bundle branch block Limb weakness Lumbar compression fracture Migraines Multiple fractures of ribs, left side, initial encounter for closed fracture Obesity Obstructive sleep apnea Osteoporosis Pneumonia Pulmonary hypertension Restless legs Scarlet fever Secondary pulmonary arterial hypertension Shoulder fracture, left Sleep apnea Thyroid disease Wrist fracture, right Home Medications cholecalciferol (vitamin D3) 25 mcg (1,000 unit) capsule 1,000 unit PO DAILY supplement 12/25/16 [History Last Taken 02/09/22] losartan 100 mg tablet 100 mg PO DAILY HTN 03/18/18 [History Last Taken 02/09/22] denosumab 60 mg/mL subcutaneous syringe (Prolia) 60 mg subcut [id number] osteoporosis 10/08/19 [History Last Taken 08/24/21] calcium carb-ergocalciferol (vit D2) 600 mg calcium-200 unit tablet 1 tab PO BID supplement 07/24/21 [History Last Taken 02/09/22] magnesium oxide 420 mg tablet 420 mg PO QHS supplement 07/24/21 [History Last Taken 02/08/22] ferrous sulfate 325 mg (65 mg iron) tablet 325 mg PO DAILY supplement 11/22/21 [History Last Taken 02/09/22] acetaminophen 500 mg tablet 500 mg PO Q6H PRN Pain 01/01/22 [History Last Taken Unknown] atenolol 25 mg tablet 25 mg PO QAM HTN 01/01/22 [History Last Taken 02/09/22] atenolol 50 mg tablet 50 mg PO QPM HTN 01/01/22 [History Last Taken 02/08/22] warfarin 2 mg tablet 2 mg PO QMWF 04/10/22 [History Last Taken Unknown] warfarin 3 mg tablet 3 mg PO SUTUTHSA 04/10/22 [History Last Taken Unknown] furosemide 20 mg tablet 40 mg PO DAILY diuretic 01/28/23 [History Last Taken Unknown] hydrocodone-acetaminophen 5-325mg 5mg-325mg 1 tab PO BID pain 4-5 01/28/23 [History Last Taken Unknown] potassium chloride 20 mEq tablet,extended release 20 meq PO DAILY 01/28/23 [History Last Taken Unknown] ropinirole 1 mg tablet 1 mg PO TID 01/28/23 [History Last Taken Unknown] sennosides 8.6 mg-docusate sodium 50 mg tablet (Stool Softener-Stimulant Laxative) 2 tab PO BID PRN stool softener 01/28/23 [History Last Taken Unknown] ondansetron 4 mg disintegrating tablet 4 mg PO Q8H PRN PRN Nausea #10 tabs 05/12/23 [Rx Last Taken Unknown] Allergy/AdvReac Type Severity Reaction Status Date / Time cefazolin [From Ancef] Allergy Severe Swelling Verified 05/12/23 07:35 silk Allergy Intermediate itching Verified 05/12/23 07:35 beet [Beet] Allergy Hives Verified 05/12/23 07:35 cantaloupe Allergy Food Verified 05/12/23 07:35 Allergy eggplant Allergy Hives Verified 05/12/23 07:35 Food Allergies: Uncoded Allergy Itching Verified 05/12/23 07:35 levofloxacin [From Levaquin] Allergy Unknown Verified 05/12/23 07:35 mold Allergy NEEDS Verified 05/12/23 07:35 FOLLOW-UP Penicillins Allergy Unknown Verified 05/12/23 07:35 tomato Allergy Food Verified 05/12/23 07:35 Allergy wheat Allergy Hives Verified 05/12/23 07:35 gabapentin [From Neurontin] AdvReac Other Verified 05/12/23 07:35 meloxicam [From Mobic] AdvReac Other Verified 05/12/23 07:35 oxycodone [From OxyIR] AdvReac Nausea Verified 05/12/23 07:35 risedronate sodium AdvReac Other Verified 05/12/23 07:35 [From Actonel] Family History Other Cancer Diabetes Heart disease Surgical History H/O partial thyroidectomy History of appendectomy History of cholecystectomy History of kyphoplasty History of parathyroidectomy History of thymectomy History of thyroid surgery History of tonsillectomy Hx of appendectomy Hx of bilateral cataract extraction Hx of cholecystectomy Hx of tonsillectomy Social History adopted: No household members: none housing: [facility] number of children: 2 current occupational status: retired current occupational exposures/hazards: No pets and animals: No leisure activities: reading and other history of recent travel: Yes ([employer] in [place]) Smoking Status: Never smoker alcohol intake: never substance use type: does not use caffeine: No ROS ROS ED ROS Narrative A complete review of systems was performed and is negative except as documented in the history of present illness. Some specific details below. Constitutional: She has had fevers chills and some muscle aches. Generalized malaise. See history of present illness. EYE: No discharge, visual complaints, or pain. ENT: No difficulty swallowing. No swelling. No pain. No reflux symptoms. CV: No chest pain or palpitations. No syncope. Respiratory: Occasional mild dry cough but not short of breath. See history of present illness. GI: No abdominal pain. No nausea vomiting diarrhea. No blood in stool. But appetite is down slightly. : No frequency dysuria or hematuria. Musculoskeletal: No recent trauma. She does have some mild diffuse myalgias. Skin: No rash. Nondiaphoretic. Neuro: No focal weakness or numbness. Endocrine: No polyuria or polydipsia. EXAM Physical Exam Narrative Exam Narrative: CONSTITUTIONAL: Patient is nontoxic in appearance. The patient looks comfortable. Work of breathing looks normal. HEENT: No notable trauma. Mucous membranes are still moist. No sinus tenderness. EYES: No conjunctival injection. No pallor. NECK:No JVD. No stridor. CARDIOVASCULAR: Regular rate. Irregular rhythm. No notable murmur. No JVD. RESPIRATORY: No respiratory distress. Breathing is unlabored. No wheezes. No rhonchi. No rales. No pain with a deep breath. No chest wall tenderness. Saturations are 94% on room air on the monitor while I am in the room. GASTROINTESTINAL: Not distended. Bowel sounds are normal. No tenderness. No guarding. No rebound. No palpable mass. No bruit is heard. GENITOURINARY: No tenderness over the bladder. No CVA tenderness. MUSCULOSKELETAL: Atraumatic. She does have some chronic peripheral edema but states that is totally normal for her.. No cord. No tenderness along the deep venous system. No asymmetry. No distended veins. NEUROLOGICAL: Patient is alert and appropriate. No focal deficit noted. SKIN: No noted rashes. No diaphoresis. PSYCHIATRIC: Patient is calm. Mood is appropriate. Const Vital Signs: 05/12/23 07:31 05/12/23 07:37 05/12/23 07:37 Temperature 99.9 F H Temperature Source Temporal Pulse Rate 90 Respiratory Rate 15 Respiratory Effort Normal Non-Labored Blood Pressure 201/81 H Blood Pressure Mean 121 Pulse Ox 90 93 Oxygen Delivery Method Room Air Room Air MDM MDM MDM Narrative Medical decision making narrative: My independent interpretation of patient's chest x-ray shows no acute process and final reading is similar. Patient CBC shows normal white count. Mildly low hemoglobin but this is not off her baseline. Platelets are normal. Patient's INR is therapeutic at 2.2. Patient's electrolytes show no marked abnormalities. Minimal elevation in his. Patient's urinalysis is negative. Patient's flu and COVID are negative. This patient does have COVID type symptoms and known exposure but her test is negative. I do not think this justifies Paxlovid. She is 3 days into this. But her vitals are good. She has normal saturations. I will write for some Zofran as with viral illnesses nausea is a common feature. We discussed returning if she is getting persistent fevers, trouble breathing pain vomiting or any other concerns. She is comfortable and would like to go home. She is also walked down the green several times without any difficulty or dyspnea Lab Data Attestation: I reviewed the patient's lab results. Labs: Laboratory Results - last 24 hr 05/12/23 05/12/23 07:38 08:55 WBC 7.2 RBC 3.68 L Hgb 10.6 L Hct 34.0 L MCV 92.4 MCH 28.8 MCHC 31.2 L RDW Std Deviation 46.5 H RDW Coeff of Tiffani 13.5 Plt Count 362 MPV 9.5 Immature Gran % (Auto) 0.800 Neut % (Auto) 65.0 Lymph % (Auto) 13.0 L [place] % (Auto) 19.2 H Eos % (Auto) 1.3 Baso % (Auto) 0.7 Absolute Neuts (auto) 4.7 Absolute Lymphs (auto) 0.93 Nucleated RBC % 0 PT 24.4 H INR 2.2 Sodium 135 L Potassium 3.9 Chloride 100 Carbon Dioxide 30.0 Anion Gap 5 BUN 14 Creatinine 0.78 Est GFR (MDRD) Af Amer 90 Est GFR (MDRD) Non-Af 74 BUN/Creatinine Ratio 18.0 Glucose 108 H Calcium 9.2 Urine Color Straw Urine Clarity Clear Urine pH 8.0 Ur Specific [place] 1.010 Urine Protein 30 H Urine Glucose (UA) Normal Urine Ketones Negative Urine Occult Blood 10 H Urine Nitrite Negative Urine Bilirubin Negative Urine Urobilinogen Normal Ur Leukocyte Esterase Negative Urine RBC 0-5 SEEN Urine WBC 0-5 SEEN Ur Squamous Epith Cells 0-5 SEEN Urine Bacteria 0 SEEN Urine Mucus 0 SEEN Radiography Diagnostic Testing: Clinical Impression(s) from Imaging Studies Chest X-Ray 05/12/23 07:50 IMPRESSION: No acute thoracic pathology. Electronically Signed: River Condon MD at 9:32 EST , Discharge Plan Triage Chief Complaint: Fever ED Provider: Jay Shields Dx/Rx/DC Orders Clinical Impression: Exposure to COVID-19 virus, Acute viral syndrome Instructions: ED Viral Syndrome (Adult) Prescriptions: New ondansetron [ondansetron] 4 mg tablet,disintegrating 4 mg PO Q8H PRN PRN (Reason: Nausea) Qty: 10 0RF No Action Prolia 60 mg/mL syringe 60 mg SC [id number] Patient Comments: due February Rx Instructions: due in february atenolol 25 mg tablet 25 mg PO QAM Patient Comments: TAKE 1 TABLET BY MOUTH IN THE MORNING atenolol 50 mg tablet 50 mg PO QPM ferrous sulfate 325 mg (65 mg iron) tablet 325 mg PO DAILY ropinirole 1 mg tablet 1 mg PO TID hydrocodone-acetaminophen 5-325 mg tablet 1 tab PO BID potassium chloride 20 mEq tablet extended release 20 meq PO DAILY cholecalciferol (vitamin D3) 1,000 UNIT capsule 1,000 unit PO DAILY acetaminophen 500 mg tablet 500 mg PO Q6H PRN (Reason: Pain) losartan 100 MG tablet 100 mg PO DAILY magnesium oxide 420 mg tablet 420 mg PO QHS Patient Comments: TAKE 1 TABLET BY MOUTH ONCE DAILY calcium carbonate-vitamin D2 600 mg calcium- 200 unit Tablet 1 tab PO BID furosemide 20 mg tablet 40 mg PO DAILY sennosides-docusate sodium [Stool Softener-Stimulant Laxat] 8.6-50 mg tablet 2 tab PO BID PRN (Reason: stool softener) warfarin 2 mg Tablet 2 mg PO QMWF warfarin 3 mg Tablet 3 mg PO [facility] Primary Care Provider: Doyle Swenson Referrals: Doyle Swenson MD [Primary Care Provider] - 3-5 Days if not improving Disposition Disposition: Home, Self Care
--- NOTE | 2023-05-12 07:50 | RAD_ITS ---
STUDY: X-RAY CHEST REASON FOR EXAM: Female, 88 years old. Cough TECHNIQUE: Frontal view of the chest COMPARISON: 05/18/2022 FINDINGS: The lungs are hyperinflated, but clear. There are no pleural effusions. There is no pneumothorax. The heart is normal in size. The visualized osseous structures are within normal limits. RAD/Chest 1 View (Portable) IMPRESSION: No acute thoracic pathology. Electronically Signed: River Condon MD at 9:32 EST ,
[2023-05-12 07:59] LABS: Absolute Lymphocyte Count 0.93 X10^3/uL (0.83-4.51); Absolute Neutrophil Count 4.7 X10^3/uL (2.0-7.7); Basophil# 0.05 X10^3/uL; Basophil% 0.7 % (0-1); Eosinophil# 0.09 X10^3/uL; Eosinophils% 1.3 % (0-5); Hemoglobin 10.6 g/dL (12.0-15.0); Lymphocyte # 0.93 X10^3/ul (0.83-4.51); Mean Corp Hgb Conc 31.2 g/dL (32-36); Mean Corpuscular Hgb 28.8 pg (27.0-32.0); Mean Corpuscular Volume 92.4 fL (81-99); Mean Platelet Vol. 9.5 fl (6.2-12.0); Monocyte# 1.38 X10^3/uL; Monocyte% 19.2 % (0-10); NRBC Flagged by Analyzer 0 % (0-5); Neutrophil # 4.66 X10^3/uL (2.7-7.7); Platelet Count 362 K/mm3 (150-450); RBC Distribution Width CV 13.5 % (11.6-14.6); RBC Distribution Width SD 46.5 fl (35.1-43.9); Red Blood Count 3.68 M/mm3 (4.2-5.4); White Blood Count 7.2 K/mm3 (4.4-11.0)
--- OUTSIDE RECORDS SUMMARY | 2023-05-12 08:21 | XMS RPT_ITS | CCD ---
Author Name Unknown Address [address] [place] [address] Organization [facility] Care Team Providers Care Residential Construction Instructor Name Role Phone Starla PRICE, Yenny Fish Unavailable [phone] MD Abby, Evin S Unavailable Starla PRICE, Yenny Fish Unavailable [phone] Allergies Allergy Classification Reported Allergen(s) Allergy Type Date of Onset Reaction(s) Facility (3 sources) eggplant extract; 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: [EGGPLANT] Drug Allergy 4 Hives [facility] Work Phone: [phone] (3 sources) gabapentin Drug Allergy 4 unknown [facility] Work Phone: [phone] (3 sources) meloxicam; 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: [MOBIC] Drug Allergy 4 unknown [facility] Work Phone: [phone] (3 sources) mold extract; 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: [MOLD] Drug Allergy 1 [facility] Work Phone: [phone] (3 sources) penicillin; 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: [PENICILLIN] Drug Allergy 1 hives [facility] Work Phone: [phone] (3 sources) risedronate Drug Allergy 4 unknown [facility] Work Phone: [phone] (6 sources) Silk; 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: [SILK] allergy to substance 4 unknown [facility] Work Phone: [phone] (3 sources) wheat; 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: [WHEAT] food allergy 1 hives/swelling [facility] Work Phone: [phone] (3 sources) BEETS; 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: [BEETS] food allergy 4 Hives [facility] Work Phone: [phone] (3 sources) CANTALOPE; 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: [CANTALOPE] food allergy 4 hives [facility] Work Phone: [phone] (3 sources) MULTIPLE FOOD ALLERGIES; 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: [MULTIPLE FOOD ALLERGIES] food allergy 1 hives/swelling [facility] Work Phone: [phone] (3 sources) PROCESSED FOODS; 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: [PROCESSED FOODS] food allergy 1 hives/swelling [facility] Work Phone: [phone] Medications Completed/Discontinued Medications Medication Drug Class(es) Dates Sig (Normalized) Sig (Original) acetaminophen 500 mg oral tablet (9 sources) Start: 08-18-2013 TYLENOL EXTRA STRENGTH 500 MG TABS As needed ACETAMINOPHEN [id number] Evin Mora MD Problems Active Problems Problem Classification Problem Date Documented Date Episodic/Chronic Cardiac dysrhythmias (6 sources) Atrial fibrillation; 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: [Paroxysmal atrial fibrillation] Onset: 08-12-2013 08-12-2013 Chronic Disorders of lipid metabolism (3 sources) Hyperlipidemia; 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: [Hyperlipidemia, unspecified] Onset: 08-12-2013 08-12-2013 Chronic Essential hypertension (3 sources) Hypertensive disorder; 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: [Essential (primary) hypertension] Onset: 08-12-2013 08-12-2013 Chronic Heart valve disorders (3 sources) Nonrheumatic mitral (valve) insufficiency; 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: [Nonrheumatic mitral (valve) insufficiency] Onset: 03-14-2016 03-14-2016 Chronic Infective arthritis and osteomyelitis (except that caused by tuberculosis or sexually transmitted di (3 sources) Acute osteomyelitis of hand; 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: [Other acute osteomyelitis, unspecified hand] Onset: 09-04-2012 09-09-2012 Chronic Unclassified (9 sources) Obstructive sleep apnea syndrome; 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: [Body mass index (BMI) 30.0-30.9, adult] Onset: 08-12-2013 08-12-2013 Chronic Unclassified (6 sources) Long-term drug therapy; 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: [Long-term (current) use of other medications] Onset: 07-26-2014 07-26-2014 Past or Other Problems Problem Classification Problem Date Documented Da te Episodic/Chronic Cardiac dysrhythmias (3 sources) Palpitations; 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: [Palpitations] Onset: 12-26-2016 12-26-2016 Episodic Malaise and fatigue (3 sources) Malaise and fatigue; 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: [Personal history of other specified conditions] Onset: 08-11-2014 08-11-2014 Episodic Other and unspecified benign neoplasm (6 sources) Skin - benign mole and nevus; 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: [Hemangioma of skin] 01-18-2011 Episodic Other skin disorders (6 sources) Dystrophia unguium; 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: [Senile hyperkeratosis] Onset: 07-21-2012 07-21-2012 Episodic Viral infection (3 sources) Herpes zoster; 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: [Zoster without complications] 01-18-2011 Episodic Results Test Name Value Interpretation Reference Range Facil ity Vital Signs Date Time Vital Sign Value Performing Clinician Faci lity 12-26-2016 09:43-0400 BMI (Body Mass Index) 30.83 kg/m2 [facility] Work Phone: 12-26-2016 09:43-0400 BP Diastolic 70 mm[Hg] [facility] Work Phone: 12-26-2016 09:43-0400 BP Systolic 110 mm[Hg] [facility] Work Phone: 12-26-2016 09:43-0400 Height 157.48 cm [facility] Work Phone: 12-26-2016 09:43-0400 Pulse (Heart Rate) 65 /min [facility] Work Phone: 12-26-2016 09:43-0400 Weight 76.48 kg [facility] Work Phone: 09-27-2016 13:18-0400 Respiratory Rate 18 /min [facility] Work Phone: 03-14-2016 13:00-0400 BSA (Body Surface Area) 1.79 m2 [facility] Work Phone: 01-18-2011 09:56-0400 Body Temperature 98.2 [degF] [facility] Work Phone: Procedures Date Procedure Procedure Detail Performing Clinician Start: 12-26-2016 End: 12-26-2016 Ecg routine ecg w/least 12 lds w/i&r Tarik H Roof [employer]ER Work Phone: Start: 09-27-2016 End: 12-26-2016 Follow Up Appt 6 months Harjit Zimmerman Start: 09-27-2016 End: 12-26-2016 LUCERO Mora MD Start: 06-28-2016 End: 06-28-2017 INR in Platelet poor plasma by Coagulation assay Evin Mora MD Start: 05-15-2016 End: 05-15-2017 INR in Platelet poor plasma by Coagulation assay Evin Mora MD Start: 03-14-2016 End: 03-14-2016 *BMP Evin Mora MD Start: 03-14-2016 End: 03-14-2016 *CBC with Differential Evin Mora MD Start: 03-14-2016 End: 03-14-2016 Follow Up Appt 6 months Harjit Zimmerman Start: 03-14-2016 End: 03-14-2016 MMM Evin Mora MD Start: 03-14-2016 End: 03-14-2016 Thyrotropin [Units/volume] in Serum or Plasma Evin Mora MD Start: 09-06-2015 End: 09-06-2015 RV DETAILER Yenny Buckley PA-C Work Phone: Start: 09-06-2015 End: 09-06-2015 Follow Up Appt 6 months Yenny la PA-C Work Phone: Start: 05-18-2015 End: 08-08-2015 INR in Platelet poor plasma by Coagulation assay Evin Mora MD Start: 03-10-2015 End: 03-11-2015 Documentation of current medications Evin Mora MD Start: 03-10-2015 End: 03-10-2015 Follow Up Appt 6 months Harjit Zimmerman Start: 03-10-2015 End: 03-10-2015 MMM Evin Mora MD Start: 11-28-2014 End: 08-25-2015 INR in Platelet poor plasma by Coagulation assay Evin Mora MD Start: 09-20-2014 End: 09-20-2014 Documentation of current medications Yenny Buckley PA-C Work Phone: Start: 09-20-2014 End: 09-20-2014 Follow Up Appt Other Yenny fish PA-C Work Phone: Start: 08-11-2014 End: 08-12-2014 *BMP Yenny Buckley PA-C Work Phone: Start: 08-11-2014 End: 08-25-2015 *CBC with Differential Yenny hartman PA-C Work Phone: Start: 08-11-2014 End: 08-11-2014 RV DETAILER Yenny Buckley PA-C Work Phone: Start: 08-11-2014 End: 08-12-2014 Documentation of current medications Yenny Buckley PA-C Work Phone: Start: 08-11-2014 End: 08-11-2014 Follow Up Appt 1 month Yenny hartman PA-C Work Phone: Start: 08-11-2014 End: 08-11-2014 Follow Up Appt 6 months Yenny la PA-C Work Phone: Start: 08-11-2014 End: 08-12-2014 Magnesium [Mass/volume] in Serum or Plasma Yenny Buckley PA-C Work Phone: Start: 08-11-2014 End: 08-11-2014 MMM Yenny Buckley PA-C Work Phone: Start: 08-11-2014 End: 08-12-2014 Natriuretic peptide B [Mass/volume] in Blood Yenny Buckley PA-C Work Phone: Start: 08-11-2014 End: 08-12-2014 Thyrotropin [Units/volume] in Serum or Plasma Yenny Buckley PA-C Work Phone: Start: 08-11-2014 End: 08-12-2014 Thyroxine (T4) [Mass/volume] in Serum or Plasma Yenny Buckley PA-C Work Phone: Start: 07-26-2014 End: 08-11-2014 INR in Platelet poor plasma by Coagulation assay Evin Mora MD Start: 06-03-2014 End: 07-26-2014 INR in Platelet poor plasma by Coagulation assay Evin Mora MD Start: 03-17-2014 End: 03-17-2014 Follow Up Appt 6 months Harjit Zimmerman Start: 03-17-2014 End: 03-17-2014 MM Evin Mora MD Start: 11-17-2013 End: 11-17-2013 RV DETAILER Yenny Buckley PA-C Work Phone: Start: 11-17-2013 End: 11-17-2013 Follow Up Appt 4 months Yenny la PA-C Work Phone: Start: 11-17-2013 End: 11-23-2013 INR in Platelet poor plasma by Coagulation assay Yenny Buckley PA-C Work Phone: Start: 08-18-2013 End: 08-20-2013 24 hour holter monitor Evin Mora MD Start: 08-18-2013 End: 08-18-2013 Follow Up Appt 3 months Harjit Zimmerman Start: 08-18-2013 End: 08-18-2013 MMM Evin Mora MD Plan of Treatment Date Care Activity Detail Author Start: 04-10-2017 End: 04-10-2017 Appointment Appointment [facility] Work Phone: Start: 12-26-2016 End: 12-26-2016 Ecg routine ecg w/least 12 lds w/i&r EKG (In office) [facility] Work Phone: Start: 09-27-2016 End: 12-26-2016 Follow Up Appt 6 months Follow Up Appt 6 months [facility] Work Phone: Start: 09-27-2016 End: 12-26-2016 MMM MMM [facility] Work Phone: Start: 06-28-2016 End: 08-26-2016 INR Coag RelTime (PPP) *PT/INR - Standing Order [facility] Work Phone: Start: 05-15-2016 End: 05-28-2016 INR Coag RelTime (PPP) *PT/INR - Standing Order [facility] Work Phone: Start: 03-14-2016 End: 03-14-2016 *BMP *BMP [facility] Work Phone: Start: 03-14-2016 End: 03-14-2016 *CBC with Differential *CBC with Differential [facility] Work Phone: Start: 03-14-2016 End: 03-14-2016 Follow Up Appt 6 months Follow Up Appt 6 months [facility] Work Phone: Start: 03-14-2016 End: 03-14-2016 MMM MMM [facility] Work Phone: Start: 03-14-2016 End: 03-14-2016 Thyroid stimulating hormone (TSH) *TSH [facility] Work Phone: Start: 09-06-2015 End: 09-06-2015 RV DETAILER RV DETAILER [facility] Work Phone: Start: 09-06-2015 End: 09-06-2015 Follow Up Appt 6 months Follow Up Appt 6 months [facility] Work Phone: Start: 05-18-2015 End: 08-08-2015 INR Coag RelTime (PPP) *PT/INR - Standing Order [facility] Work Phone: Start: 03-10-2015 End: 03-10-2015 Follow Up Appt 6 months Follow Up Appt 6 months [facility] Work Phone: Start: 03-10-2015 End: 03-10-2015 MMM MMM [facility] Work Phone: Start: 11-28-2014 End: 08-25-2015 INR Coag RelTime (PPP) *PT/INR - Standing Order [facility] Work Phone: Start: 09-20-2014 End: 09-20-2014 Follow Up Appt Other Follow Up Appt Other [facility] Work Phone: Start: 08-11-2014 End: 08-12-2014 *BMP *BMP [facility] Work Phone: Start: 08-11-2014 End: 08-25-2015 *CBC with Differential *CBC with Differential [facility] Work Phone: Start: 08-11-2014 End: 08-12-2014 BNP *Brain Natriuretic Peptide BNP [facility] Work Phone: Start: 08-11-2014 End: 08-11-2014 RV DETAILER RV DETAILER [facility] Work Phone: Start: 08-11-2014 End: 08-11-2014 Follow Up Appt 1 month Follow Up Appt 1 month [facility] Work Phone: Start: 08-11-2014 End: 08-11-2014 Follow Up Appt 6 months Follow Up Appt 6 months [facility] Work Phone: Start: 08-11-2014 End: 08-12-2014 Magnesium *Magnesium [facility] Work Phone: Start: 08-11-2014 End: 08-11-2014 MMM MMM [facility] Work Phone: Start: 08-11-2014 End: 08-12-2014 Thyroid stimulating hormone (TSH) *TSH [facility] Work Phone: Start: 08-11-2014 End: 08-12-2014 Thyroxine (T4) *T4 (Total) [facility] Work Phone: Start: 07-26-2014 End: 08-11-2014 INR Coag RelTime (PPP) *PT/INR - Standing Order [facility] Work Phone: Start: 06-03-2014 End: 07-26-2014 INR Coag RelTime (PPP) *PT/INR - Standing Order [facility] Work Phone: Start: 03-17-2014 End: 03-17-2014 Follow Up Appt 6 months Follow Up Appt 6 months [facility] Work Phone: Start: 03-17-2014 End: 03-17-2014 MMM MMM [facility] Work Phone: Start: 11-17-2013 End: 11-17-2013 RV DETAILER RV DETAILER [facility] Work Phone: Start: 11-17-2013 End: 11-17-2013 Follow Up Appt 4 months Follow Up Appt 4 months [facility] Work Phone: Start: 11-17-2013 End: 11-23-2013 INR Coag RelTime (PPP) *PT/INR - Standing Order [facility] Work Phone: Start: 08-18-2013 End: 08-18-2013 24 hour holter monitor 24 hour holter monitor [facility] Work Phone: Start: 08-18-2013 End: 08-18-2013 Follow Up Appt 3 months Follow Up Appt 3 months [facility] Work Phone: Start: 08-18-2013 End: 08-18-2013 MMM MMM [facility] Work Phone: Patient Education Warfarin+(Oral)+(Tablet ) [facility] Work Phone: Additional Source Comments FOR RECORDS PERTAINING TO PATIENTS WHO ARE OR HAVE BEEN ENROLLED IN A CHEMICAL DEPENDENCY/SUBSTANCEABUSE PROGRAM, SOME INFORMATION MAY BE OMITTED. This clinical summary was aggregated from multiple sources. Caution should be exercised in using it in the provision of clinical care. This summary normalizes information from multiple sources, and as a consequence, information in this document may materially change the coding, format and clinical context of patient data. In addition, data may be omitted in some cases. CLINICAL DECISIONS SHOULD BE BASED ON THE PRIMARY CLINICAL RECORDS. [employer] provides no warranty or guarantee of the accuracy or completeness of information in this document.
[2023-05-12 08:22] LABS: Anion Gap 5 (5-15); BUN 14 mg/dL (7-18); Calcium,Total 9.2 mg/dL (8.5-10.1); Chloride 100 mmol/L (98-107); Creatinine, Serum 0.78 mg/dL (0.55-1.02); EST Glomerular Filtration Rate 74 mL/min (>60); Est Glom Filt Rate - Afr Amer 90 mL/min (>60); Glucose 108 mg/dL (74-106); Potassium 3.9 mmol/L (3.5-5.1); Sodium Level 135 mmol/L (136-145)
[2023-05-12 08:23] LABS: International Normalized Ratio 2.2; Prothrombin Time (Protime)PT. 24.4 SECONDS (11.7-14.9)
[2023-05-12 09:00] LABS: Bacteria 0 SEEN /hpf (None Seen); Mucous, Urine 0 SEEN /hpf (<or=2+)
[2023-05-12 09:02] LABS: Color, Urine Straw (Yellow); Glucose, Dipstick Normal (Normal); Ketone-Dipstick Negative (Negative); Leukocyte Esterase-Dipstick Negative /ul (Negative); Nitrite-Dipstick Negative (Negative); Occult Blood-Urine 10 /ul (Negative); Protein-Dipstick 30 mg/dl (Negative); Urine Bilirubin Dipstick Negative (Negative); Urine Clarity Clear (Clear); Urine Urobilinogen Normal (Normal)
[2023-05-12 09:07] LABS: Red Blood Cells-Urine 0-5 SEEN /hpf (0-5); Squamous Epithelial Cells - UA 0-5 SEEN /hpf (5-10); White Blood Cells 0-5 SEEN /hpf (0-5)
[2023-05-12 09:28] VITALS: PULSE 87; RESP 16; O2SAT 92
== END 2023-05-12 10:17 | disposition home or self-care (01) ==
PROVIDERS: Emergency Provider Emergency Medicine; PCP Family Medicine; Visit Provider Emergency Medicine
DX: B34.9 Viral infection, unspecified (principal); J44.9 Chronic obstructive pulmonary disease, unspecified; I27.21 Secondary pulmonary arterial hypertension; I48.91 Unspecified atrial fibrillation; M79.10 Myalgia, unspecified site; Z11.52 Encounter for screening for COVID-19; R50.9 Fever, unspecified; R05.9 Cough, unspecified; I10 Essential (primary) hypertension; Z79.01 Long term (current) use of anticoagulants; Z79.899 Other long term (current) drug therapy
CPT/HCPCS: 71045; 80048; 81001; 85025; 85610; 87428; 99283; A4216

== ENCOUNTER → 2023-06-09 | Outpatient (CLI) | payer MEDICARE, BC, SELFPAY ==
--- OUTSIDE RECORDS SUMMARY | 2023-06-09 14:52 | XMS RPT_ITS | CCD ---
Author Name Unknown Address [address] [place] [address] Organization [facility] Care Team Providers Care Bi Data Architect Name Role Phone Starla PRICE, Yenny Fish Unavailable [phone] MD Abby, Evin S Unavailable Starla PRICE, Yenny Fish Unavailable [phone] Allergies Allergy Classification Reported Allergen(s) Allergy Type Date of Onset Reaction(s) Facility (3 sources) eggplant extract; 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: [EGGPLANT] Drug Allergy 4 Hives [facility] Work Phone: [phone] (3 sources) gabapentin Drug Allergy 4 unknown [facility] Work Phone: [phone] (3 sources) meloxicam; 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: [MOBIC] Drug Allergy 4 unknown [facility] Work Phone: [phone] (3 sources) mold extract; 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: [MOLD] Drug Allergy 1 [facility] Work Phone: [phone] (3 sources) penicillin; 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: [PENICILLIN] Drug Allergy 1 hives [facility] Work Phone: [phone] (3 sources) risedronate Drug Allergy 4 unknown [facility] Work Phone: [phone] (6 sources) Silk; 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: [SILK] allergy to substance 4 unknown [facility] Work Phone: [phone] (3 sources) wheat; 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: [WHEAT] food allergy 1 hives/swelling [facility] Work Phone: [phone] (3 sources) BEETS; 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: [BEETS] food allergy 4 Hives [facility] Work Phone: [phone] (3 sources) CANTALOPE; 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: [CANTALOPE] food allergy 4 hives [facility] Work Phone: [phone] (3 sources) MULTIPLE FOOD ALLERGIES; 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: [MULTIPLE FOOD ALLERGIES] food allergy 1 hives/swelling [facility] Work Phone: [phone] (3 sources) PROCESSED FOODS; 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: [PROCESSED FOODS] food allergy 1 hives/swelling [facility] Work Phone: [phone] Medications Completed/Discontinued Medications Medication Drug Class(es) Dates Sig (Normalized) Sig (Original) acetaminophen 500 mg oral tablet (9 sources) Start: 08-18-2013 TYLENOL EXTRA STRENGTH 500 MG TABS As needed ACETAMINOPHEN [id number] Evin Mora MD Problems Active Problems Problem [...] w/least 12 lds w/i&r Tarik H Roof [employer] DEF[employer] ANALYST Work Phone: Start: 09-27-2016 End: 12-26-2016 Follow [...] Evin Mora MD Start: 09-06-2015 End: 09-06-2015 PATIENT AMBASSADOR Yenny Buckley PA-C Work Phone: Start: 09-06-2015 [...] PA-C Work Phone: Start: 08-11-2014 End: 08-11-2014 PATIENT AMBASSADOR Yenny Buckley PA-C Work Phone: Start: 08-11-2014 [...] Evin Mora MD Start: 11-17-2013 End: 11-17-2013 PATIENT AMBASSADOR Yenny Buckley PA-C Work Phone: Start: 11-17-2013 [...] w/least 12 lds w/i&r EKG (In office) [facility] Work Phone: Start: 09-27-2016 End: 12-26-2016 Follow Up Appt 6 months Follow Up Appt 6 months [facility] Work Phone: Start: 09-27-2016 End: 12-26-2016 MMM MMM [facility] Work Phone: Start: 06-28-2016 End: 08-26-2016 INR Coag RelTime (PPP) *PT/INR - Standing Order [facility] Work Phone: Start: 05-15-2016 End: 05-28-2016 INR Coag RelTime (PPP) *PT/INR - Standing Order [facility] Work Phone: Start: 03-14-2016 End: 03-14-2016 *BMP *BMP [facility] Work Phone: Start: 03-14-2016 End: 03-14-2016 *CBC with Differential *CBC with Differential [facility] Work Phone: Start: 03-14-2016 End: 03-14-2016 Follow Up Appt 6 months Follow Up Appt 6 months [facility] Work Phone: Start: 03-14-2016 End: 03-14-2016 MMM MMM [facility] Work Phone: Start: 03-14-2016 End: 03-14-2016 Thyroid stimulating hormone (TSH) *TSH [facility] Work Phone: Start: 09-06-2015 End: 09-06-2015 PATIENT AMBASSADOR PATIENT AMBASSADOR [facility] Work Phone: Start: 09-06-2015 End: 09-06-2015 Follow Up Appt 6 months Follow Up Appt 6 months [facility] Work Phone: Start: 05-18-2015 End: 08-08-2015 INR Coag RelTime (PPP) *PT/INR - Standing Order [facility] Work Phone: Start: 03-10-2015 End: 03-10-2015 Follow Up Appt 6 months Follow Up Appt 6 months [facility] Work Phone: Start: 03-10-2015 End: 03-10-2015 MMM MMM [facility] Work Phone: Start: 11-28-2014 End: 08-25-2015 INR Coag RelTime (PPP) *PT/INR - Standing Order [facility] Work Phone: Start: 09-20-2014 End: 09-20-2014 Follow Up Appt Other Follow Up Appt Other [facility] Work Phone: Start: 08-11-2014 End: 08-12-2014 *BMP *BMP [facility] Work Phone: Start: 08-11-2014 End: 08-25-2015 *CBC with Differential *CBC with Differential [facility] Work Phone: Start: 08-11-2014 End: 08-12-2014 BNP *Brain Natriuretic Peptide BNP [facility] Work Phone: Start: 08-11-2014 End: 08-11-2014 PATIENT AMBASSADOR PATIENT AMBASSADOR [facility] Work Phone: Start: 08-11-2014 End: 08-11-2014 Follow Up Appt 1 month Follow Up Appt 1 month [facility] Work Phone: Start: 08-11-2014 End: 08-11-2014 Follow Up Appt 6 months Follow Up Appt 6 months [facility] Work Phone: Start: 08-11-2014 End: 08-12-2014 Magnesium *Magnesium [facility] Work Phone: Start: 08-11-2014 End: 08-11-2014 MMM MMM [facility] Work Phone: Start: 08-11-2014 End: 08-12-2014 Thyroid stimulating hormone (TSH) *TSH [facility] Work Phone: Start: 08-11-2014 End: 08-12-2014 Thyroxine (T4) *T4 (Total) [facility] Work Phone: Start: 07-26-2014 End: 08-11-2014 INR Coag RelTime (PPP) *PT/INR - Standing Order [facility] Work Phone: Start: 06-03-2014 End: 07-26-2014 INR Coag RelTime (PPP) *PT/INR - Standing Order [facility] Work Phone: Start: 03-17-2014 End: 03-17-2014 Follow Up Appt 6 months Follow Up Appt 6 months [facility] Work Phone: Start: 03-17-2014 End: 03-17-2014 MMM MMM [facility] Work Phone: Start: 11-17-2013 End: 11-17-2013 PATIENT AMBASSADOR PATIENT AMBASSADOR [facility] Work Phone: Start: 11-17-2013 End: 11-17-2013 Follow Up Appt 4 months Follow Up Appt 4 months [facility] Work Phone: Start: 11-17-2013 End: 11-23-2013 INR Coag RelTime (PPP) *PT/INR - Standing Order [facility] Work Phone: Start: 08-18-2013 End: 08-18-2013 24 hour holter monitor 24 hour holter monitor [facility] Work Phone: Start: 08-18-2013 End: 08-18-2013 Follow Up Appt 3 months Follow Up Appt 3 months [facility] Work Phone: Start: 08-18-2013 End: 08-18-2013 MMM MMM [facility] Work Phone: Patient Education Warfarin+(Oral)+(Tablet ) [facility] Work Phone: Additional Source Comments FOR RECORDS [...] BE BASED ON THE PRIMARY CLINICAL RECORDS. [employer] provides no warranty or guarantee of the accuracy or completeness of information in this document.
[2023-06-09 17:37] LABS: Hematocrit 36.3 % (37-47); Mean Corp Hgb Conc 30.3 g/dL (32-36); Mean Corpuscular Hgb 28.9 pg (27.0-32.0); Mean Corpuscular Volume 95.3 fL (81-99); Platelet Count 353 K/mm3 (150-450); RBC Distribution Width CV 13.6 % (11.6-14.6); RBC Distribution Width SD 48.3 fl (35.1-43.9); Red Blood Count 3.81 M/mm3 (4.2-5.4); White Blood Count 6.8 K/mm3 (4.4-11.0)
[2023-06-09 17:57] LABS: Erythrocyte Sedimentation Rate 50 mm/hr (0-30)
[2023-06-09 18:00] LABS: BNP,B-Type NATRIURETIC PEPTIDE 90.9 pg/mL (0-100)
[2023-06-09 18:16] LABS: ALB/GLOB Ratio 0.8 RATIO (0.9-2.4); AST(SGOT) 22 U/L (15-37); Alanine Aminotransfer ALT/SGPT 24 U/L (13-56); Albumin, Serum 3.3 g/dL (3.2-5.0); Alkaline Phosphatase 63 U/L (45-117); Anion Gap 4 (5-15); BUN 29 mg/dL (7-18); BUN/Creat Ratio 35.1 RATIO (10-20); Calcium,Total 9.5 mg/dL (8.5-10.1); Chloride 99 mmol/L (98-107); Creatinine, Serum 0.83 mg/dL (0.55-1.02); EST Glomerular Filtration Rate 69 mL/min (>60); Est Glom Filt Rate - Afr Amer 84 mL/min (>60); Globulin 4.2 g/dL (2.2-4.2); Glucose 96 mg/dL (74-106); Potassium 4.4 mmol/L (3.5-5.1); Protein, Total 7.5 g/dL (6.4-8.2); Sodium Level 134 mmol/L (136-145); Thyroid Stim Hormone (TSH) 0.76 uIU/mL (0.358-3.74); Uric Acid 6.4 mg/dL (2.6-6.0)
== END | disposition home or self-care (01) ==
LOC: MFPLAB 14:35
PROVIDERS: PCP Family Medicine; Visit Provider Family Medicine
DX: I48.91 Unspecified atrial fibrillation (principal); M35.3 Polymyalgia rheumatica; M79.7 Fibromyalgia; M25.559 Pain in unspecified hip
CPT/HCPCS: 36415; 80053; 83880; 84443; 84550; 85027; 85652; 86140

== ENCOUNTER → 2023-08-06 | Outpatient (CLI) | payer MEDICARE, BC, SELFPAY ==
[2023-08-06 15:31] LABS: Anion Gap 5 (5-15); BUN 24 mg/dL (7-18); BUN/Creat Ratio 22.6 RATIO (10-20); Calcium,Total 8.5 mg/dL (8.5-10.1); Chloride 104 mmol/L (98-107); Creatinine, Serum 1.06 mg/dL (0.55-1.02); EST Glomerular Filtration Rate 52 mL/min (>60); Est Glom Filt Rate - Afr Amer 63 mL/min (>60); Glucose 102 mg/dL (74-106); Potassium 4.5 mmol/L (3.5-5.1); Sodium Level 136 mmol/L (136-145)
== END | disposition home or self-care (01) ==
LOC: MTLAB 12:31
PROVIDERS: PCP Family Medicine; Referring Provider Family Medicine; Visit Provider Family Medicine
DX: I48.91 Unspecified atrial fibrillation (principal)
CPT/HCPCS: 36415; 80048

== ENCOUNTER → 2023-08-08 | Outpatient (CLI) | payer MEDICARE, BC, SELFPAY | END | disposition home or self-care (01) | LOC: LAB.FUTURE 15:15 | PROVIDERS: PCP Family Medicine; Visit Provider Family Medicine | DX: I27.20 Pulmonary hypertension, unspecified (principal); G25.81 Restless legs syndrome; G47.33 Obstructive sleep apnea (adult) (pediatric) ==

== ENCOUNTER → 2023-08-11 | Outpatient (CLI) | payer MEDICARE, BC, SELFPAY ==
[2023-08-11 15:35] LABS: Absolute Lymphocyte Count 1.88 X10^3/uL (0.83-4.51); Absolute Neutrophil Count 5.1 X10^3/uL (2.0-7.7); Basophil# 0.07 X10^3/uL; Basophil% 0.9 % (0-1); Eosinophil# 0.16 X10^3/uL; Hematocrit 35.8 % (37-47); Hemoglobin 11.4 g/dL (12.0-15.0); Lymphocyte # 1.88 X10^3/ul (0.83-4.51); Lymphocyte % 23.9 % (19-41); Mean Corp Hgb Conc 31.8 g/dL (32-36); Mean Corpuscular Hgb 29.1 pg (27.0-32.0); Mean Corpuscular Volume 91.3 fL (81-99); Mean Platelet Vol. 9.7 fl (6.2-12.0); Monocyte# 0.67 X10^3/uL; Monocyte% 8.5 % (0-10); NRBC Flagged by Analyzer 0 % (0-5); Neutrophil # 5.07 X10^3/uL (2.7-7.7); Neutrophil % 64.3 % (47-70); Platelet Count 385 K/mm3 (150-450); RBC Distribution Width CV 14.2 % (11.6-14.6); RBC Distribution Width SD 47.9 fl (35.1-43.9); Red Blood Count 3.92 M/mm3 (4.2-5.4); White Blood Count 7.9 K/mm3 (4.4-11.0)
[2023-08-11 16:02] LABS: ALB/GLOB Ratio 0.9 RATIO (0.9-2.4); AST(SGOT) 21 U/L (15-37); Alanine Aminotransfer ALT/SGPT 18 U/L (13-56); Albumin, Serum 3.5 g/dL (3.2-5.0); Alkaline Phosphatase 60 U/L (45-117); Anion Gap 8 (5-15); BUN 33 mg/dL (7-18); BUN/Creat Ratio 36.8 RATIO (10-20); Calcium,Total 8.8 mg/dL (8.5-10.1); Chloride 102 mmol/L (98-107); EST Glomerular Filtration Rate 63 mL/min (>60); Est Glom Filt Rate - Afr Amer 77 mL/min (>60); Ferritin 41 ng/mL (8-252); Glucose 112 mg/dL (74-106); Iron 32 ug/dL (50-170); Potassium 4.4 mmol/L (3.5-5.1); Protein, Total 7.5 g/dL (6.4-8.2); Sodium Level 138 mmol/L (136-145); Thyroid Stim Hormone (TSH) 1.34 uIU/mL (0.358-3.74)
== END | disposition home or self-care (01) ==
LOC: MTLAB 12:45
PROVIDERS: PCP Family Medicine; Referring Provider Family Medicine; Visit Provider Family Medicine
DX: I27.20 Pulmonary hypertension, unspecified (principal); I48.91 Unspecified atrial fibrillation; G25.81 Restless legs syndrome; I10 Essential (primary) hypertension; M35.3 Polymyalgia rheumatica; E87.6 Hypokalemia; Z79.01 Long term (current) use of anticoagulants; M79.89 Other specified soft tissue disorders; R79.82 Elevated C-reactive protein (CRP); E27.49 Other adrenocortical insufficiency
CPT/HCPCS: 36415; 80053; 82728; 83540; 84443; 85025

== ENCOUNTER → 2023-08-27 | Outpatient (CLI) | payer MEDICARE, BC, SELFPAY ==
--- NOTE | 2023-08-27 13:24 | RAD_ITS ---
INDICATION: PAIN EXAMINATION/TECHNIQUE: X-RAY - XR Hip Unilateral with Pelvis when performed; 2-3 Views COMPARISON: No relevant prior comparison study available FINDINGS: PELVIC BONES: No displaced fracture, destructive or sclerotic lesions. Note that overlapping bowel shadows may however obscure fine detail. Sacroiliac joints are unremarkable. No widening of the pubic symphysis. HIPS: Moderate to severe narrowing of the hip joints markedly worse on the right side. No displaced fracture seen in this frontal view. SOFT TISSUES: No soft tissue swelling or gas. RAD/HIP, UNI W/ Pelvis 2-3 Views IMPRESSION: Osteoarthritis of the right hip. No evidence of displaced hip fracture. Electronically Signed: Mario Ricks MD at 15:12 EDT ,
--- NOTE | 2023-08-27 13:28 | RAD_ITS ---
INDICATION: dyspnea EXAMINATION/TECHNIQUE: X-RAY - XR Chest 2 Views COMPARISON: No relevant prior comparison study available FINDINGS: LINES/DEVICES: None. LUNGS: No consolidation, edema or effusion. No pneumothorax. MEDIASTINUM AND CARDIOVASCULAR STRUCTURES: Cardiac silhouette not enlarged. Central airways and mediastinal contour are unremarkable. BONES AND SOFT TISSUES: Unremarkable. RAD/Chest PA and Lateral IMPRESSION: No radiographic evidence of acute cardiopulmonary disease. Electronically Signed: Mario Rikcs MD at 14:46 EDT ,
[2023-08-27 16:13] LABS: BNP,B-Type NATRIURETIC PEPTIDE 43.4 pg/mL (0-100)
[2023-08-27 16:26] LABS: Anion Gap 9 (5-15); BUN 38 mg/dL (7-18); BUN/Creat Ratio 38.9 RATIO (10-20); Calcium,Total 9.2 mg/dL (8.5-10.1); Chloride 96 mmol/L (98-107); Creatinine, Serum 0.98 mg/dL (0.55-1.02); EST Glomerular Filtration Rate 57 mL/min (>60); Est Glom Filt Rate - Afr Amer 69 mL/min (>60); Glucose 96 mg/dL (74-106); Potassium 3.9 mmol/L (3.5-5.1); Sodium Level 135 mmol/L (136-145)
== END | disposition home or self-care (01) ==
LOC: MTLAB 13:22
PROVIDERS: PCP Family Medicine; Referring Provider Family Medicine; Visit Provider Family Medicine
DX: M79.89 Other specified soft tissue disorders (principal); R06.00 Dyspnea, unspecified; M89.8X8 Other specified disorders of bone, other site
CPT/HCPCS: 36415; 71046; 73502; 80048; 83880

== ENCOUNTER → 2023-09-09 | Outpatient (CLI) | payer MEDICARE, BC, SELFPAY ==
--- NOTE | 2023-09-09 13:23 | CT_ITS ---
STUDY: CT LUMBAR SPINE WITHOUT CONTRAST REASON FOR EXAM: Female, 88 years old. LUMBAR DDD RADIATION DOSAGE (If Supplied By Facility): CTDIvol = ( 27.55 ) mGy, DLP = ( 780.17 ) mGycm TECHNIQUE: The patient was scanned in a multi detector CT scanner. High resolution transaxial imaging was performed. Images were obtained from L1 to S1 vertebral level. Sagittal and coronal images were reconstructed. Individualized dose optimization techniques were used for this CT. COMPARISON: Comparison is made with prior study dated April 10, 2022. FINDINGS: Normal lumbar lordosis. There is a dextroscoliosis of the lumbar spine. L1-2: Moderate degree of disc space narrowing. Prior vertebroplasty of the L2 vertebrae with evidence of a compression fracture. L2-3: Marked degree of disc space narrowing. Compression fracture of the L3 vertebrae with the vertebroplasty. There is retropulsion of the posterior fracture causing a moderate degree of central canal stenosis. This is worse on the right side. L3-4: Moderate degree of disc space narrowing. Facet joint osteoarthritis. Mild right neural foraminal stenosis. L4-5: Moderate degree of disc space narrowing. Facet joint osteoarthritis and hypertrophy. Hypertrophy of the liver and inflammatory causes a mild degree of central canal stenosis. L5-S1: Moderate degree of disc space narrowing and right neural foraminal stenosis. Calcification of the abdominal aorta. CT/Spine Lumbar without Contrast IMPRESSION: Stable examination with evidence of compression fracture of the L3 vertebra with retropulsion of the fracture fragment. Loss of height of the L2 superior endplate with the kyphoplasty of the L2 and L3 vertebrae. Electronically Signed: Chris Clark MD at 15:14 EDT ,
--- NOTE | 2023-09-09 13:23 | CT_ITS ---
STUDY: CT RIGHT HIP REASON FOR EXAM: Female, 88 years old. OA CONTRAST: None. TECHNIQUE: Transaxial imaging of the right hip was performed with reformatted sagittal and coronal images. Individualized dose optimization techniques were used for this CT. COMPARISON: Right hip radiographs dated 08/27/2023 FINDINGS: HIP There is severe degenerative arthrosis of the right hip joint with [id number], marginal osteophyte formation, and subchondral sclerosis/cyst formation on both sides of the joint. Intact femoral neck and intertrochanteric region. There is no demonstrated fracture of the right hip. VISUALIZED OSSEOUS PELVIS Normal superior and inferior pubic rami. Normal pubic symphysis. Normal bilateral ischial tuberosity. Normal visualized iliac wing, sacroiliac joint, and sacral ala. Normal visualized soft tissue structures of the pelvis. CT/Extremity Lower without Contra IMPRESSION: Severe degenerative arthrosis of the right hip joint, as detailed above. No demonstrated fracture. Electronically Signed: Zhen Blunt MD at 14:35 EDT ,
--- NOTE | 2023-09-09 14:07 | VDLE_ITS ---
Reason For Study: soft tissue disorder RIGHT LEFT GSV is normal. GSV is normal. CFV is compressible, spontaneous, phasic, CFV is compressible, spontaneous, phasic, competent and demonstrates normal competent, and demonstrates normal augmentation. augmentation. FV is compressible, spontaneous, phasic, FV is compressible, spontaneous, phasic, competent and demonstrates normal competent and demonstrates normal augmentation. augmentation. POP V is compressible, spontaneous, phasic, POP V is compressible, spontaneous, phasic, competent and demonstrates normal competent and demonstrates normal augmentation. augmentation. T/P Trunk is compressible. T/P Trunk is compressible. PTV is compressible. PTV is compressible. RT PerV is compressible. LT PerV is compressible. Procedure This is a venous duplex using B-mode, color flow and spectral Doppler. Exam performed in department. A preliminary report was called and/or faxed to Dr Swesnon @ [phone] @ 14:40. VL/Venous Duplex US - Yfn Extrem Interpretation Summary Deep veins of the bilateral lower extremities are patent and compressible segme ntally. There is no evidence of bilateral lower extremity deep vein thrombosis. The bilateral great saphenous veins appear patent and compressible segmentally. Ordering Physician: Hussein Swenson Referring Physician: Aurora Esquivel Performed By: Nettie Juarez, NATALIE, RVT
== END | disposition home or self-care (01) ==
LOC: CVS 13:06
PROVIDERS: PCP Family Medicine; Referring Provider Clinical Nurse Specialist Adult Health; Visit Provider Clinical Nurse Specialist Adult Health
DX: M51.36 Other intervertebral disc degeneration, lumbar region (principal); M16.11 Unilateral primary osteoarthritis, right hip; M79.89 Other specified soft tissue disorders
CPT/HCPCS: 72131; 73700; 93970

== ENCOUNTER 2023-11-03 14:56 | Inpatient (IN) | payer MEDICARE, BC, SELFPAY ==
[2023-11-03] VITALS (7 sets, daily range): BP systolic 133–229; BP diastolic 61–116; PULSE 81–95; RESP 14–22; TEMP 36.6–36.8; O2SAT 91–98; BMI 32.8
--- NOTE | 2023-11-03 16:24 | EDS_ITS ---
HPI History of Present Illness Chief Complaint: Nosebleed Detail of Chief Complaint: Nosebleed Informant: patient Narrative Narrative: Patient presents to the emergency department complaint of nosebleeding. Patient states that she started having a nosebleed approximately 2 PM and came on spontaneously. Initially she had some clear drainage to the back of her throat throat and out her nose. She states this morning she took her hydrocodone and droperidol and some alcoholic maybe it and go all the way down. Patient denies any difficulties breathing. She denies new medications. [facility] Medical History (Updated 11/03/23 @ 17:[address] Horace Horta, DO) Lumbar compression fracture Closed compression fracture of L2 vertebra COPD (chronic obstructive pulmonary disease) Wrist fracture, right Shoulder fracture, left Osteoporosis Hiatal hernia Restless legs History of stress test HTN (hypertension) Scarlet fever Sleep apnea CPAP (continuous positive airway pressure) dependence Pulmonary hypertension Atrial fibrillation Secondary pulmonary arterial hypertension Incomplete right bundle branch block Obstructive sleep apnea Obesity Essential (primary) hypertension Multiple fractures of ribs, left side, initial encounter for closed fracture Hypertensive emergency Pneumonia Limb weakness Difficulty balancing Thyroid disease Migraines Fatigue Arthritis Community acquired pneumonia Home Medications ?Medication ?Instructions ?Recorded ?Last Taken ?Type cholecalciferol (vitamin D3) 25 1,000 unit PO DAILY supplement 12/25/16 02/09/22 History mcg (1,000 unit) capsule losartan 100 mg tablet 100 mg PO DAILY HTN 03/18/18 02/09/22 History denosumab 60 mg/mL subcutaneous 60 mg subcut [id number] osteoporosis 10/08/19 08/24/21 History syringe (Prolia) calcium carb-ergocalciferol (vit 1 tab PO BID supplement 07/24/21 02/09/22 History D2) 600 mg calcium-200 unit tablet magnesium oxide 420 mg tablet 420 mg PO QHS supplement 07/24/21 02/08/22 History ferrous sulfate 325 mg (65 mg 325 mg PO DAILY supplement 11/22/21 02/09/22 History iron) tablet acetaminophen 500 mg tablet 500 mg PO Q6H PRN Pain 01/01/22 Unknown History atenolol 25 mg tablet 25 mg PO QAM HTN 01/01/22 02/09/22 History atenolol 50 mg tablet 50 mg PO QPM HTN 01/01/22 02/08/22 History warfarin 2 mg tablet 2 mg PO QMWF 04/10/22 Unknown History warfarin 3 mg tablet 3 mg PO SUTUTHSA 04/10/22 Unknown History furosemide 20 mg tablet 40 mg PO DAILY diuretic 01/28/23 Unknown History potassium chloride 20 mEq 20 meq PO DAILY 01/28/23 Unknown History tablet,extended release ropinirole 1 mg tablet 1 mg PO TID 01/28/23 Unknown History sennosides 8.6 mg-docusate sodium 2 tab PO BID PRN stool softener 01/28/23 Unknown History 50 mg tablet (Stool Softener-Stimulant Laxative) ondansetron 4 mg disintegrating 4 mg PO Q8H PRN PRN Nausea #10 tabs 05/12/23 Unknown Rx tablet hydrocodone 7.5 mg-acetaminophen 1 tab PO TID PRN PRN pain 11/03/23 Unknown History 325 mg tablet Allergy/AdvReac Type Severity Reaction Status Date / Time cefazolin (From Ancef) Allergy Severe Swelling Verified 11/03/23 14:57 silk Allergy Intermediate itching Verified 11/03/23 14:57 beet (Beet) Allergy Hives Verified 11/03/23 14:57 cantaloupe Allergy Food Verified 11/03/23 14:57 Allergy eggplant Allergy Hives Verified 11/03/23 14:57 Food Allergies: Uncoded Allergy Itching Verified 11/03/23 14:57 levofloxacin (From Levaquin) Allergy Unknown Verified 11/03/23 14:57 mold Allergy NEEDS Verified 11/03/23 14:57 FOLLOW-UP Penicillins Allergy Unknown Verified 11/03/23 14:57 tomato Allergy Food Verified 11/03/23 14:57 Allergy wheat Allergy Hives Verified 11/03/23 14:57 gabapentin (From Neurontin) AdvReac Other Verified 11/03/23 14:57 meloxicam (From Mobic) AdvReac Other Verified 11/03/23 14:57 oxycodone (From OxyIR) AdvReac Nausea Verified 11/03/23 14:57 risedronate sodium (From AdvReac Other Verified 11/03/23 14:57 Actonel) Family History Other Cancer Diabetes Heart disease Surgical History H/O partial thyroidectomy History of appendectomy History of cholecystectomy History of kyphoplasty History of parathyroidectomy History of thymectomy History of thyroid surgery History of tonsillectomy Hx of appendectomy Hx of bilateral cataract extraction Hx of cholecystectomy Hx of tonsillectomy Social History adopted: No household members: none housing: [facility] number of children: 2 current occupational status: retired current occupational exposures/hazards: No pets and animals: No leisure activities: reading and other history of recent travel: Yes ([employer] in [place]) Smoking Status: Never smoker alcohol intake: never substance use type: does not use caffeine: No ROS ROS ED Review of Systems ROS Unobtainable: other Constitutional Constitutional ED: Reports lethargy; Denies chills, fever(s), sweats or weight loss Eyes Eyes: Denies blurry vision, change in vision or diplopia ENT ENT ED: Reports other Details: Nosebleed from left side of nose, clear nasal drainage left-sided nose. ; Denies rhinorrhea or sore throat Cardiovascular Cardiovascular: Denies chest pain, orthopnea or racing heartbeat Respiratory/Chest Respiratory/Chest: Denies cough, dyspnea, dyspnea on exertion, orthopnea or sputum Gastrointestinal Gastrointestinal: Denies abdominal pain, diarrhea, nausea or vomiting Genitourinary Genitourinary ED: Denies dysuria, hematuria or urinary frequency Musculoskeletal Musculoskeletal: Denies arthralgias, back pain, myalgias or neck pain Integumentary Denies abscess, Abrasions or rash Neurologic Neurologic: Denies headache(s) or weakness Psychiatric Psychiatric: Denies anxiety, depression or suicidal thoughts Endocrine Endocrinology: Denies polydipsia, polyphagia or polyuria Hematologic/Lymphatic Hematologic/Lymphatic: Denies easy bleeding, easy bruising or lymphadenopathy Allergic/Immunologic Allergic/Immunologic ED: Denies mouth swelling, tongue swelling or urticaria EXAM Physical Exam Const Vital Signs: 11/03/23 14:57 11/03/23 14:57 11/03/23 16:57 Temperature 98.1 F Temperature Source Temporal Pulse Rate 81 83 87 Respiratory Rate 14 14 18 Respiratory Pattern Blood Pressure 189/105 H 193/102 H 198/88 H Blood Pressure Mean 133 132 124 Pulse Ox 97 97 96 Oxygen Delivery Method Room Air Room Air Room Air 11/03/23 17:01 11/03/23 17:20 Temperature Temperature Source Pulse Rate 95 90 Respiratory Rate 20 H 18 Respiratory Pattern Tachypnea Blood Pressure 229/91 H Blood Pressure Mean 137 Pulse Ox 91 Oxygen Delivery Method Room Air Positive well nourished and well developed General Appearance ED: well developed and NAD HEENT Reports TM's clear and moist mucous membranes HEENT Narrative: Left nasal vault-no active bleeding. There was some brown thin drainage that I suspect is likely related to old blood. Evaluated the back of her throat and she has diffuse looks like angioedema of the soft palate and tonsillar pillars. Tongue is not edematous. She has no stridor or respiratory difficulty. normocephalic and atraumatic; Negative for trauma or tenderness Tympanic Membrane ED: Yes TM's clear Eyes PERRL and EOMs intact bilaterally General Eye ED: Negative for pale conjunctiva or scleral icterus Neck no lymphadenopathy, supple and no JVD General: Negative for tenderness Chest Wall inspection of chest normal and palpation of chest normal Chest: Negative for tenderness Resp normal respiratory effort and clear to auscultation bilaterally Effort and Inspection: Negative for respiratory distress or pain with movement Auscultation: Negative for rhonchi, wheezes or diminished lung sounds Cardio regular rate, regular rhythm, S1 normal heart sound, S2 normal heart sound and no murmurs Peripheral Pulses: pulses 2+ throughout GI normal to inspection, nondistended, normoactive bowel sounds, soft to palpation, non-tender, non-distended and no masses Back/Spine no CVA tenderness and no thoracic nor lumbar tenderness Extremity normal to inspection General Extremety ED: Negative for edema General Extremity: Negative for edema Neuro oriented x3, CN's II-XII intact bilaterally, no sensory deficits noted and gait normal Sensorium / Orientation: awake, alert, oriented to person, oriented to place and oriented to time Motor Exam: strength 5/5 throughout and strength abnormal Psych mental status grossly normal Skin no rashes or lesions noted and no wounds MDM MDM MDM Narrative Medical decision making narrative: Patient presents with nosebleed that currently is ceased. Also had some drainage from the left side of her nose. Evaluation of the back of the throat does reveal some evidence for angioedema. IV line will be established. She will be medicated with Solu-Medrol as well as Benadryl and Pepcid. Will give her racemic epinephrine aerosol. Will monitor closely. Will obtain basic labs and an INR. Patient case discussed with hospitalist will evaluate patient for admission for an observation period for angioedema. Etiology of angioedema unclear although she is on an ARB. Repeat examination at 1825. No worsening of the angioedema noted. No worsening of symptoms. Will admit for observation and continued steroids and treatment for concern of angioedema. Lab Data Attestation: I reviewed the patient's lab results. Discharge Plan Dx/Rx/DC Orders Clinical Impression: Epistaxis, Angioedema, Hypertension Disposition Disposition: Acute Care Hospital [facility]
[2023-11-03] MEDS: Famotidine 200 MG/20 ML MDV 20 MG in 0.9% Normal Saline (Pres. free 8 ML 300 MG IV (16:57)
[2023-11-03] MEDS: DiphenhydrAMINE 50 MG/ML Syringe 25 MG IV ×2 (16:57→20:56)
[2023-11-03] MEDS: MethylPREDNISolone 125 MG/2 ML Vial IV (16:58)
[2023-11-03] MEDS: Racepinephrine HCl 0.5 ML VIAL.NEB. INHALATION (16:58)
--- NOTE | 2023-11-03 17:10 | ED.RN ---
SEVERAL ATTEMPTS BY [employer] FOR BLOODWORK, UNSUCCESSFUL, LAB CALLED AND TO COME DRAW
[2023-11-03] MEDS: Labetalol (Compound) 20 MG/4 ML SYRINGE IV ×2 (17:29→20:56)
--- NOTE | 2023-11-03 17:40 | ED.RN ---
PT VOICE IS GARBLED. SATS DECREASING 88-89% ON RA. PT DENIES THROAT OR BREATHING FEELING WORSE. O2 APPLIED, SATS 97% DR AWARE AND TO REEVALUATE
--- NOTE | 2023-11-03 18:05 | ED.RN ---
PER DR. ESPINOSA, WE DO NOT HAVE TO KEEP POKING PATIENT FOR BLOOD SPECIMEN.
--- NOTE | 2023-11-03 20:26 | HP.PCM.HOS_ITS ---
HPI - General General Date of Admission: 11/03/23 Date of Service: 11/03/23 Chief Complaint: Nosebleed, difficulty swallowing HPI Narrative JOYCE SOLOMON, is a 88 F who presents to emergency room at [facility] for evaluation of discharge from her nose which she states was bloody in nature and also swallowing difficulties which started over the last 24 hours. Patient has no respiratory complaints. She states her voice is changed somewhat and is not normal today. There was difficulty in drawing lab work for the patient, no lab work was obtained today. At the time my examination, patient did not have any nosebleed. The soft palate area and uvula appear to be swollen but not severely so. This correlated with examination of the emergency room physician. It was felt that the patient probably had early angioedema, she was given IV corticosteroids and Benadryl, she will be admitted to PCU for further care. Patient's blood pressure was under poor control in the emergency room and she was given IV labetalol, this will be continued during her hospital stay on PCU. [facility] Medical History Lumbar compression fracture Closed compression fracture of L2 vertebra COPD (chronic obstructive pulmonary disease) Wrist fracture, right Shoulder fracture, left Osteoporosis Hiatal hernia Restless legs History of stress test HTN (hypertension) Scarlet fever Sleep apnea CPAP (continuous positive airway pressure) dependence Pulmonary hypertension Atrial fibrillation Secondary pulmonary arterial hypertension Incomplete right bundle branch block Obstructive sleep apnea Obesity Essential (primary) hypertension Multiple fractures of ribs, left side, initial encounter for closed fracture Hypertensive emergency Pneumonia Limb weakness Difficulty balancing Thyroid disease Migraines Fatigue Arthritis Community acquired pneumonia Home Medications ?Medication ?Instructions ?Recorded ?Last Taken ?Type cholecalciferol (vitamin D3) 25 1,000 unit PO DAILY supplement 12/25/16 11/03/23 History mcg (1,000 unit) capsule losartan 100 mg tablet 100 mg PO DAILY HTN 03/18/18 11/03/23 History denosumab 60 mg/mL subcutaneous 60 mg subcut [id number] osteoporosis 10/08/19 08/24/21 History syringe (Prolia) magnesium oxide 420 mg tablet 420 mg PO QHS supplement 07/24/21 11/02/23 History ferrous sulfate 325 mg (65 mg 325 mg PO DAILY supplement 11/22/21 11/03/23 History iron) tablet acetaminophen 500 mg tablet 500 mg PO Q6H PRN Pain 01/01/22 Unknown History atenolol 25 mg tablet 25 mg PO QAM HTN 01/01/22 11/03/23 History atenolol 50 mg tablet 50 mg PO QPM HTN 01/01/22 11/02/23 History warfarin 3 mg tablet 3 mg PO SUTUTHSA Afib 04/10/22 11/02/23 History furosemide 20 mg tablet 40 mg PO DAILY diuretic 01/28/23 11/03/23 History ropinirole 1 mg tablet 1 mg PO TID restless leg 01/28/23 11/03/23 History sennosides 8.6 mg-docusate sodium 2 tab PO BID PRN stool softener 01/28/23 11/02/23 History 50 mg tablet (Stool Softener-Stimulant Laxative) hydrocodone 7.5 mg-acetaminophen 1 tab PO TID PRN PRN pain 11/03/23 11/03/23 History 325 mg tablet Allergy/AdvReac Type Severity Reaction Status Date / Time cefazolin (From Ancef) Allergy Severe Swelling Verified 11/03/23 14:57 silk Allergy Intermediate itching Verified 11/03/23 14:57 beet (Beet) Allergy Hives Verified 11/03/23 14:57 cantaloupe Allergy Food Verified 11/03/23 14:57 Allergy eggplant Allergy Hives Verified 11/03/23 14:57 Food Allergies: Uncoded Allergy Itching Verified 11/03/23 14:57 levofloxacin (From Levaquin) Allergy Unknown Verified 11/03/23 14:57 mold Allergy NEEDS Verified 11/03/23 14:57 FOLLOW-UP Penicillins Allergy Unknown Verified 11/03/23 14:57 tomato Allergy Food Verified 11/03/23 14:57 Allergy wheat Allergy Hives Verified 11/03/23 14:57 gabapentin (From Neurontin) AdvReac Other Verified 11/03/23 14:57 meloxicam (From Mobic) AdvReac Other Verified 11/03/23 14:57 oxycodone (From OxyIR) AdvReac Nausea Verified 11/03/23 14:57 risedronate sodium (From AdvReac Other Verified 11/03/23 14:57 Actonel) Family History Other Cancer Diabetes Heart disease Surgical History H/O partial thyroidectomy History of appendectomy History of cholecystectomy History of kyphoplasty History of parathyroidectomy History of thymectomy History of thyroid surgery History of tonsillectomy Hx of appendectomy Hx of bilateral cataract extraction Hx of cholecystectomy Hx of tonsillectomy Social History adopted: No household members: none housing: [facility] number of children: 2 current occupational status: retired current occupational exposures/hazards: No pets and animals: No leisure activities: reading and other history of recent travel: Yes ([employer] in [place]) Smoking Status: Never smoker alcohol intake: never substance use type: does not use caffeine: No ROS Constitutional Constitutional: Denies anorexia, change in weight, chills, fatigue, fever(s), night sweats or weakness Eyes Eyes: Denies blurry vision, change in vision, discharge from eye(s) or eye pain ENT HEENT: Reports other Details: Difficulty swallowing, nosebleed today Cardiovascular Cardiovascular: Denies chest pain, claudication, dyspnea on exertion, edema or palpitations Respiratory/Chest Respiratory/Chest: Denies cough, dyspnea, hemoptysis, productive cough, shortness of breath at rest or shortness of breath with exertion Gastrointestinal Gastrointestinal: Denies abdominal pain, constipation, diarrhea, hematemesis, hematochezia, melena, nausea or vomiting Genitourinary Genitourinary: Denies dysuria, hematuria, urinary frequency, urinary hesitancy, urinary incontinence or urinary urgency Musculoskeletal Musculoskeletal: Denies back pain, joint pain, joint stiffness, joint swelling, myalgias or neck pain Neurologic Neurologic: Denies abnormal gait, abnormal speech, confusion, dizziness, focal weakness, headache(s), loss of vision, numbness, other visual disturbances, paresthesias, syncope or tingling Psychiatric Psychiatric: Denies anxiety, cognitive impairment, depression, irritability, mood swings or suicidal ideation Endocrine Endocrinology: Denies change in body appearance, cold intolerance, excessive sweating, heat intolerance, polydipsia or polyuria Hematologic/Lymphatic Hematologic/Lymphatic: Denies none, anemia, easy bleeding, easy bruising or lymphadenopathy Allergic/Immunologic Allergic/Immunologic: Denies rhinitis, urticaria, eczemia or asthma Vital Signs Vital Signs Vital Signs: 11/03/23 14:57 11/03/23 14:57 11/03/23 16:57 Temperature 98.1 F Temperature Source Temporal Pulse Rate 81 83 87 Respiratory Rate 14 14 18 Respiratory Pattern Blood Pressure 189/105 H 193/102 H 198/88 H Blood Pressure Mean 133 132 124 Blood Pressure Source Blood Pressure Position Blood Pressure Location Pulse Ox 97 97 96 Oxygen Delivery Method Room Air Room Air Room Air Oxygen Flow Rate (L/min) 11/03/23 17:01 11/03/23 17:20 11/03/23 18:39 Temperature 97.8 F Temperature Source Pulse Rate 95 90 87 Respiratory Rate 20 H 18 22 H Respiratory Pattern Tachypnea Blood Pressure 229/91 H 196/75 H Blood Pressure Mean 137 115 Blood Pressure Source Blood Pressure Position Blood Pressure Location Pulse Ox 91 95 Oxygen Delivery Method Room Air Oxygen Flow Rate (L/min) 11/03/23 18:55 Temperature 98.2 F Temperature Source Temporal Pulse Rate 86 Respiratory Rate 18 Respiratory Pattern Blood Pressure 156/116 H Blood Pressure Mean 129 Blood Pressure Source Monitor Blood Pressure Position Semi-Fowlers Blood Pressure Location Right Forearm Pulse Ox 97 Oxygen Delivery Method Nasal Cannula Oxygen Flow Rate (L/min) 1 Weight Weight: 76.1 kg Body Mass Index (BMI) 32.8 Physical Exam Const alert, oriented x3, no apparent distress and average body habitus Constitutional Narrative: Patient appears her stated age General Appearance: cooperative, well kempt and well developed Orientation / Consciousness: awake, oriented to person, oriented to place and oriented to time HEENT normocephalic, head/scalp atraumatic, hearing grossly normal bilaterally and moist oral mucous membranes HEENT Narrative: Patient soft palate and uvula area appears to be moderately swollen, patient is able to speak but her voice is somewhat muffled-only slightly Eyes PERRL, EOMs intact bilaterally and conjunctivae normal Neck supple, no JVD, thyroid normal and no carotid bruits General: trachea midline Resp normal respiratory effort, no retractions, no use of accessory muscles and clear to auscultation bilaterally Auscultation: Negative for rales, rhonchi or wheezes Cardio regular rate, regular rhythm, S1 normal heart sound, S2 normal heart sound, no murmurs, no rub and no gallops GI normal to inspection, nondistended, normoactive bowel sounds, soft to palpation, non-tender and non-distended Extremity no clubbing, cyanosis or edema Skin no rashes or lesions noted General Skin Exam: no breakdown Neuro oriented x3, CN's II-XII intact bilaterally, moves all extremities, no focal motor deficits and no sensory deficits noted Sensorium / Orientation: awake, alert, oriented to person, oriented to place and oriented to time Speech: speech normal Psych affect normal Assessment & Plan Assessment/Plan (1) Angioedema: PLAN: Plan 1. Angioedema-patient appears stable for admission to PCU, she will be made n.p.o., she will be seen by speech therapy tomorrow, IV Solu-Medrol and IV Benadryl will be given to the patient, she will remain off Cozaar #2 essential hypertension-patient's blood pressure will be controlled with IV labetalol every 6 hours and as needed hydralazine #3 epistaxis-resolved present time, I will attempt to have the lab drawn tomorrow morning to check the patient's INR, CBC, and BMP. #4 paroxysmal A-fib currently on chronic anticoagulation-again the patient's INR will be rechecked tomorrow #5 degenerative disc disease lumbar spine-complicates care, management, recovery, and prognosis #6 obstructive sleep apnea-patient states she uses BiPAP at home, patient has her own machine and will use it during her hospitalization Total clinical time spent by myself addressing the patient's medical issues, reviewing all of her data, and collaborating with patient's care team: 55 minutes Charges/Coding Visit Charges Inpatient E&M: 08377 Init Hosp L2
[2023-11-03] MEDS: 0.9% Normal Saline (1000mL) 1,000 ML 100 ML IV (20:51)
[2023-11-03 23:24] LABS: Absolute Neutrophil Count 11.1 X10^3/uL (2.0-7.7); Basophil# 0.02 X10^3/uL; Basophil% 0.2 % (0-1); Eosinophil# 0.03 X10^3/uL; Eosinophils% 0.3 % (0-5); Hematocrit 36.4 % (37-47); Hemoglobin 11.5 g/dL (12.0-15.0); Lymphocyte % 3.4 % (19-41); Mean Corp Hgb Conc 31.6 g/dL (32-36); Mean Corpuscular Hgb 28.3 pg (27.0-32.0); Mean Corpuscular Volume 89.4 fL (81-99); Mean Platelet Vol. 9.1 fl (6.2-12.0); Monocyte# 0.06 X10^3/uL; Monocyte% 0.5 % (0-10); NRBC Flagged by Analyzer 0 % (0-5); Neutrophil # 11.09 X10^3/uL (2.7-7.7); Neutrophil % 95.1 % (47-70); POSITIVE DIFFERENTIAL YES; Platelet Count 338 K/mm3 (150-450); RBC Distribution Width CV 13.2 % (11.6-14.6); RBC Distribution Width SD 43.4 fl (35.1-43.9); Red Blood Count 4.07 M/mm3 (4.2-5.4); White Blood Count 11.7 K/mm3 (4.4-11.0)
[2023-11-03 23:39] LABS: International Normalized Ratio 2.8
[2023-11-03 23:41] LABS: Anion Gap 4 (5-15); BUN 21 mg/dL (7-18); BUN/Creat Ratio 24.1 RATIO (10-20); Chloride 104 mmol/L (98-107); Creatinine, Serum 0.87 mg/dL (0.55-1.02); EST Glomerular Filtration Rate 65 mL/min (>60); Est Glom Filt Rate - Afr Amer 79 mL/min (>60); Estimated Creatinine Clearance 41.53 ml/min; Glucose 172 mg/dL (74-106); Potassium 3.5 mmol/L (3.5-5.1); Sodium Level 137 mmol/L (136-145)
[2023-11-04] VITALS (8 sets, daily range): BP systolic 134–186; BP diastolic 48–67; PULSE 68–88; RESP 16–18; TEMP 36.3–36.7; O2SAT 93–98
[2023-11-04] MEDS: DiphenhydrAMINE 50 MG/ML Syringe 25 MG IV ×2 (04:00→08:56)
[2023-11-04] MEDS: Labetalol (Compound) 20 MG/4 ML SYRINGE IV (04:00)
[2023-11-04] MEDS: hydrALAZINE 20 MG/ML Vial 10 MG IV (05:34)
[2023-11-04] MEDS: Morphine 2 MG/ML Syringe IV (05:38)
[2023-11-04] MEDS: 0.9% Normal Saline (1000mL) 1,000 ML 100 ML IV (08:56)
[2023-11-04 09:04] LABS: Anion Gap 6 (5-15); BUN 20 mg/dL (7-18); Calcium,Total 9.1 mg/dL (8.5-10.1); Chloride 106 mmol/L (98-107); Creatinine, Serum 0.95 mg/dL (0.55-1.02); EST Glomerular Filtration Rate 59 mL/min (>60); Est Glom Filt Rate - Afr Amer 71 mL/min (>60); Estimated Creatinine Clearance 38.03 ml/min; Glucose 169 mg/dL (74-106); Potassium 3.6 mmol/L (3.5-5.1); Sodium Level 139 mmol/L (136-145)
--- NOTE | 2023-11-04 09:47 | CASEMGMT ---
Social Work- SW met with pt to complete SDOH. Pt states that her daughter and neighbor assist with transportation. Pt reports she also uses [facility] transport. Pt would like info for other options that offer on-call services. Pt reports that she has called [employer], but not received a call back. Pt states she would like information for home modification programs as well, as she needs a handrail at her steps outside for safety. Pt states she would like a transport wheelchair as well. Pt reports she does not have room for a ramp at her home. Pt lives in a condo that she owns. Pt reports that she has no home health services. Pt daughter and neighbor assist as needed and check-in several times per week. Pt reports that she has a medic alert through [employer] and wears it daily. Pt reports that she has shower chair and that family has assist with other modifications in the home for safety. Pt reports that she has reached out to [facility] and cannot afford private pay home health services. Pt reports she was checking for future reference, as she is very proactive in regards to safety due to a previous fall in which pt broke 5 ribs. SW provided information for [employer], [employer], [place], [employer], [employer], [employer] and medicare DME coverage. Pt denies any additional assistance or information needed at this time. LUIS Vo
[2023-11-04 09:48] LABS: Absolute Lymphocyte Count 0.65 X10^3/uL (0.83-4.51); Absolute Neutrophil Count 8.6 X10^3/uL (2.0-7.7); Basophil# 0.02 X10^3/uL; Basophil% 0.2 % (0-1); Hematocrit 35.4 % (37-47); International Normalized Ratio 3.3; Lymphocyte # 0.65 X10^3/ul (0.83-4.51); Lymphocyte % 6.9 % (19-41); Mean Corp Hgb Conc 31.1 g/dL (32-36); Mean Corpuscular Hgb 28.3 pg (27.0-32.0); Mean Platelet Vol. 9.9 fl (6.2-12.0); Monocyte# 0.09 X10^3/uL; NRBC Flagged by Analyzer 0 % (0-5); Neutrophil # 8.56 X10^3/uL (2.7-7.7); Neutrophil % 91.5 % (47-70); Platelet Count 361 K/mm3 (150-450); Prothrombin Time (Protime)PT. 33.1 SECONDS (11.7-14.9); RBC Distribution Width CV 13.3 % (11.6-14.6); RBC Distribution Width SD 44.5 fl (35.1-43.9); Red Blood Count 3.89 M/mm3 (4.2-5.4); White Blood Count 9.4 K/mm3 (4.4-11.0)
--- NOTE | 2023-11-04 11:20 | CASEMGMT ---
ALBERT NOLAN Face to Face with patient for initial transition planning/care coordination assessment. ALBERT NOLAN introduced self and role at [facility]. Patient sitting in chair, alert and oriented, daughter at bedside. Patient willing to participate in assessment and is able to answer all questions appropriately. Care providers, pharmacy, and demographics verified. PCP: Leela Specialists: Dale, pain; Martha, wet cotton feeder; Michael, dictaphone typist; YULISSA, waterproofer helper Preferred Pharmacy: [facility] Insurance: Luz BLANK Prescription Benefit: yes Living Will/HPOA: yes, daughter Janki Witt LNOK: daughter, grandson Living Arrangements: Patient lives alone in a single story condo with 3 steps and railing to enter. Patient states she is independent at home. Transportation: daughter, neighbor, son in law DME/HHC: Patient has shower chair, raised toilet, cane, walker, rollator, grab bars, bipap, and pulse ox at home. Patient has been to TCU and [facility] in the past. Patient has had [facility] in the past. Patient wishes to discharge home and would like [facility] at discharge. Patient declined HHC list. ALBERT NOLAN updated discharge sales planning coordinator. Patient states he has no further needs or concerns at this time. CM to follow for discharge planning needs that may arise. Disposition Plan: Patient to discharge home with HHC, family support, and follow-up plans in place. Mary MCGREGOR, RN, CM
--- NOTE | 2023-11-04 11:55 | CASEMGMT ---
Discharge Planning HH resumption referral sent to [facility] via [facility]. Cassandra Church DC Planning Asst.
--- NOTE | 2023-11-04 12:43 | CT_ITS ---
STUDY: CT FACIAL BONES WITH CONTRAST REASON FOR EXAM: Female, 88 years old. Concern for angioedema. The metastasis. RADIATION DOSAGE (If Supplied By Facility): CTDIvol = ( 29.38 ) mGy, DLP = ( 1197.75 ) mGycm TECHNIQUE: The patient was scanned in a multi detector CT scanner. Transaxial imaging was performed following the intravenous administration of IV 100mL Isovue-300. Sagittal and coronal images were reconstructed. Individualized dose optimization techniques were used for this CT. COMPARISON: None. FINDINGS: Atherosclerotic plaque formation of the carotid bifurcations bilaterally more prominent on the right side. Normal orbital mo and orbital contents. Normal nasal bones and anterior nasal spine. Normal facial bones. There is no demonstrated fracture. Minimal degree of mucosal thickening along the medial wall of the left maxillary sinus and ethmoid sinuses. Nasal septal deviation towards the right side of the midline. CT/Sinus/Facial Bone WITH Contras IMPRESSION: Minimal mucosal thickening of the left maxillary sinus and the ethmoid sinuses. Nasal septal deviation towards the left side of the midline. Electronically Signed: Chris Clark MD at 13:38 EDT ,
--- NOTE | 2023-11-04 12:44 | PN.HOSP_ITS ---
Reason for Visit Reason for Visit: Diagnoses Angioneurotic edema, initial encounter (11/03/23) Subjective Subjective Patient admitted yesterday afternoon with prior history of intermittent and some difficulty swallowing. She was found on exam to have concern for swelling in the soft palate area and uvula. Was noted that the swelling was not severe but could be consistent with early angioedema. She was started on IV corticosteroids and Benadryl and admitted for further management. I saw patient at the bedside this morning, friend present. Patient was sitting up comfortably in bedside chair, conversing normally, in no acute distress. She was breathing very comfortably on room air at rest. She did not appear to have any change in her voice. She had no cough or any upper respiratory symptoms at this time. Patient states this morning that she feels may be slightly better than yesterday. Continues to feel like her voice is slightly more muffled than normal. She has not had any further nosebleeds since admission. She otherwise feels fine, denies any other acute concerns at this time. Objective Data Objective Data Vital Signs: Vital Signs Temp Pulse Resp BP Pulse Ox O2 Del Method O2 Flow Rate 97.9 F 81 16 147/48 H 94 Room Air 1 11/04/23 09:02 11/04/23 09:02 11/04/23 09:02 11/04/23 09:02 11/04/23 10:32 11/04/23 10:32 11/04/23 09:02 Oxygen Flow Rate (L/min) 1 Oxygen Delivery Method Room Air Weight: 76.1 kg Body Mass Index (BMI) 32.8 Intake & Output: Intake and Output for Last 24 Hours 11/02/23 11/03/23 11/04/23 23:59 23:59 23:59 Intake Total 1000 / 1000 Output Total 350 / 350 Balance -340 / -340 1000 / 1000 Lab / Micro Data 11/04/23 05:09 11/04/23 05:09 Labs: Laboratory Results - last 24 hr 11/03/23 23:13: WBC 11.7 H, RBC 4.07 L, Hgb 11.5 L, Hct 36.4 L, MCV 89.4, MCH 28.3, MCHC 31.6 L, RDW Std Deviation 43.4, RDW Coeff of Tiffani 13.2, Plt Count 338, MPV 9.1, Immature Gran % (Auto) 0.500, Neut % (Auto) 95.1 H, Lymph % (Auto) 3.4 L, [place] % (Auto) 0.5, Eos % (Auto) 0.3, Baso % (Auto) 0.2, Absolute Neuts (auto) 11.1 H, Absolute Lymphs (auto) 0.40 L, Nucleated RBC % 0, PT 29.0 H, INR 2.8, Sodium 137, Potassium 3.5, Chloride 104, Carbon Dioxide 29.0, Anion Gap 4 L, BUN 21 H, Creatinine 0.87, Estim Creat Clear Calc 41.53, Est GFR (MDRD) Af Amer 79, Est GFR (MDRD) Non-Af 65, BUN/Creatinine Ratio 24.1 H, Glucose 172 H, Calcium 9.0 11/04/23 05:09: WBC 9.4, RBC 3.89 L, Hgb 11.0 L, Hct 35.4 L, MCV 91.0, MCH 28.3, MCHC 31.1 L, RDW Std Deviation 44.5 H, RDW Coeff of Tiffani 13.3, Plt Count 361, MPV 9.9, Immature Gran % (Auto) 0.400, Neut % (Auto) 91.5 H, Lymph % (Auto) 6.9 L, [place] % (Auto) 1.0, Eos % (Auto) 0.0, Baso % (Auto) 0.2, Absolute Neuts (auto) 8.6 H, Absolute Lymphs (auto) 0.65 L, Nucleated RBC % 0, PT 33.1 H, INR 3.3, Sodium 139, Potassium 3.6, Chloride 106, Carbon Dioxide 27.0, Anion Gap 6, BUN 20 H, Creatinine 0.95, Estim Creat Clear Calc 38.03, Est GFR (MDRD) Af Amer 71, Est GFR (MDRD) Non-Af 59 L, BUN/Creatinine Ratio 21.0 H, Glucose 169 H, Calcium 9.1 Physical Exam Const alert, oriented x3 and no apparent distress Constitutional Narrative: Pleasant elderly female, obese, sitting comfortably in bedside chair, conversing normally, in no acute distress. General Appearance: cooperative and comfortable HEENT normocephalic, head/scalp atraumatic and hearing grossly normal bilaterally HEENT Narrative: Small amount of dried blood noted at back of the palate just above the uvula. No significant swelling of the palate or uvula noted. No other abnormalities noted. Eyes PERRL, EOMs intact bilaterally and conjunctivae normal Neck full ROM Chest inspection of chest normal Resp normal respiratory effort, normal air movement, no use of accessory muscles and clear to auscultation bilaterally Cardio regular rate, regular rhythm, no murmurs and peripheral pulses 2+ throughout GI normal to inspection, nondistended, normoactive bowel sounds, soft to palpation, non-tender and non-distended Back/Spine normal ROM Extremity normal to inspection, full ROM and no pedal edema Skin no rashes or lesions noted Neuro no focal motor deficits and no sensory deficits noted Speech: speech normal Psych mental status grossly normal Assessment & Plan Assessment/Plan (1) Angioedema: (2) Epistaxis: PLAN: Plan Patient is an 88-year-old female who presented [facility] ED on 11/03/2023 with 1 day history of intermittent nosebleeds and difficulty swallowing. 1. Concern for angioedema ? Clinically with concern for angioedema on admission given reported difficulty swallowing and some swelling noted of soft palate and uvula. No overt risk factors for angioedema; no significant offending medications noted. Treated with IV steroids and IV Benadryl on admit with minimal change. CT facial/sinus with contrast on 11/03 showed minimal mucosal thickening of left maxillary sinus and ethmoid sinuses, nasal septal deviation towards left side midline, no other abnormalities. Speech therapy evaluated on 11/03, no issues with swallowing, recommended regular diet. Seems unlikely that patient has true angioedema at this time. Will discontinue steroids and Benadryl for now and monitor for 1 more day. If patient remains stable tomorrow, will plan to discharge home. 2. Epistaxis, resolved; history of chronic iron deficiency anemia ? Reported intermittent nosebleeds on day of admission. Has previous history of nosebleeds occasionally but never to this extent. Has now had no nosebleeds since admission. Hemoglobin 11.5 on admit, at baseline. Repeat hemoglobin 11.0 on hospital day 2. Stable, no need to monitor further CBCs. Continue home iron supplement. Chronic medical conditions: ? Hypertension: Continue home atenolol and Lasix. Holding home losartan for now, likely okay to resume on discharge. ? Paroxysmal A-fib on warfarin: INR therapeutic on admit. Continue home warfarin. ? Restless leg syndrome: Continue home ropinirole. ? Obesity: BMI 32 on admit. Complicates hospital course, care and prognosis. ? Osteoporosis: Continue outpatient denosumab injections. DVT prophylaxis: Not indicated, on therapeutic warfarin CODE STATUS: Full code, unverified Expected disposition: Home, 1 to 2 days Total clinical time spent by myself addressing the patient's medical issues, reviewing all the data, and collaborating with patient's care team: 35 minutes. Charges/Coding Visit Charges Inpatient E&M: 38225 Subs Hosp L2
[2023-11-04] MEDS: Ferrous Sulfate 325 MG Tablet PO (14:05)
[2023-11-04] MEDS: Pramipexole Di-HCl 0.5 MG Tablet PO ×2 (14:05→20:03)
[2023-11-04] MEDS: Atenolol 25 MG Tablet PO (14:06)
--- NOTE | 2023-11-04 15:06 | CASEMGMT ---
Social Work SW met with pt to discuss advance directives.? Pt confirms she has completed a living will and health care POA naming daughter, Janki.? Pt notified that documents are not on file at [facility] and SW requested they be brought in for scanning into the EMR.? LUIS Vo
--- NOTE | 2023-11-04 15:50 | CHAPLAIN ---
Type of Pastoral Visit _x__ Initial Visit ___ Follow-up Visit ___ On-call Visit ___ General Patient Visit ___ Spiritual Assessment ___ Family Conference ___ Bereavement ___ Rapid Response ___ Code Blue ___ Other (describe below) Pastoral Care Referral From _x__ Patient ___ Family ___ Nurse ___ Physician ___ Reclaimer ___ E Mail System Administrator ___ Other (describe below) Sacrament/Intervention _x__ Active listening ___ Anointing ___ Yazidi ___ Bereavement ___ Communion _x__ Beth exploration ___ ___ Life review _x__ Prayer ___ Reconciliation ___ Sacrament of Sick _x__ Supportive presence ___ Wedding ___ Other (describe below) Pastoral Comments 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
[2023-11-04] MEDS: 0.9% Saline Lock 10 ML Syringe IV (20:03)
[2023-11-04] MEDS: Atenolol 50 MG Tablet PO (20:03)
--- NOTE | 2023-11-04 23:42 | CPS ---
Patient is wearing home unit at this time. No distress noted.
[2023-11-05 03:25] VITALS: BP 166/59; PULSE 65; RESP 18; TEMP 36.6; O2SAT 95
[2023-11-05] MEDS: Pramipexole Di-HCl 0.5 MG Tablet PO (05:30)
[2023-11-05 06:55] VITALS: O2SAT 93
[2023-11-05] MEDS: Cholecalciferol (VIT D3) 25 MCG TABLET (1,000 UNITS) PO (10:43)
[2023-11-05] MEDS: Furosemide 40 MG Tablet PO (10:43)
[2023-11-05] MEDS: Atenolol 25 MG Tablet PO (10:43)
[2023-11-05] MEDS: Losartan Potassium 100 MG Tablet PO (10:51)
--- NOTE | 2023-11-05 11:26 | PCM.DC ---
Discharge Instructions Diet Discharge Diet: No restrictions Activity Discharge Activity: No Restrictions Follow Up Care Test Results: Test results from this visit will be discussed in further detail at your follow-up appointment, if applicable. Discharge Plan Admission Admit Date/Time: 11/03/23 18:02 Primary Reason for Your Visit: nosebleeds and difficulty swallowing Attending Provider: Santino Haas Primary Care Provider: Hussein Swenson Consulting Providers: Valerio Abarca Additional Instructions / Restrictions: Continue all home medications as normal. If you have rebleeding from your nose or mouth area, would recommend getting a referral to ENT for further evaluation. Discharge Orders/Prescriptions Prescriptions: Continued Prolia 60 mg/mL syringe 60 mg SC [id number] Patient Comments: due February Rx Instructions: due in february atenolol 25 mg tablet 25 mg PO QAM Patient Comments: TAKE 1 TABLET BY MOUTH IN THE MORNING atenolol 50 mg tablet 50 mg PO QPM ferrous sulfate 325 mg (65 mg iron) tablet 325 mg PO DAILY ropinirole 1 mg tablet 1 mg PO TID cholecalciferol (vitamin D3) 1,000 UNIT capsule 1,000 unit PO DAILY losartan 100 MG tablet 100 mg PO DAILY magnesium oxide 420 mg tablet 420 mg PO QHS Patient Comments: TAKE 1 TABLET BY MOUTH ONCE DAILY furosemide 20 mg tablet 40 mg PO DAILY sennosides-docusate sodium [Stool Softener-Stimulant Laxat] 8.6-50 mg tablet 2 tab PO BID PRN (Reason: stool softener) warfarin 3 mg Tablet 3 mg PO SUTUTHSA hydrocodone-acetaminophen 7.5-325 mg tablet 1 tab PO TID PRN PRN (Reason: pain) Discontinued acetaminophen 500 mg tablet 500 mg PO Q6H PRN (Reason: Pain) Referrals / Follow Up: Hussein Swenson MD [Primary Care Provider] - 11/12/23 4:50 pm Disposition Disposition (needs filled in before D/C Order can be placed): Home Health Service
--- NOTE | 2023-11-05 11:43 | DS.PCM_ITS ---
Providers Date of Admission: 11/03/23 Date of Discharge: 11/05/23 Primary Care Physician: Dr. Hussein Swenson MD Reason For Visit: ANGIOEDEMA Diagnosis Discharge Diagnosis (1) Angioedema: Status: Acute Code(s): T78.3XXA - Angioneurotic edema, initial encounter (2) Epistaxis: Status: Acute Code(s): R04.0 - Epistaxis Medications at Discharge Home Medications cholecalciferol (vitamin D3) 25 mcg (1,000 unit) capsule 1,000 unit PO DAILY supplement 12/25/16 losartan 100 mg tablet 100 mg PO DAILY HTN 03/18/18 denosumab 60 mg/mL subcutaneous syringe (Prolia) 60 mg subcut [id number] osteoporosis 10/08/19 magnesium oxide 420 mg tablet 420 mg PO QHS supplement 07/24/21 ferrous sulfate 325 mg (65 mg iron) tablet 325 mg PO DAILY supplement 11/22/21 atenolol 25 mg tablet 25 mg PO QAM HTN 01/01/22 atenolol 50 mg tablet 50 mg PO QPM HTN 01/01/22 warfarin 3 mg tablet 3 mg PO SUTUTHSA Afib 04/10/22 furosemide 20 mg tablet 40 mg PO DAILY diuretic 01/28/23 ropinirole 1 mg tablet 1 mg PO TID restless leg 01/28/23 sennosides 8.6 mg-docusate sodium 50 mg tablet (Stool Softener-Stimulant Laxative) 2 tab PO BID PRN stool softener 01/28/23 hydrocodone 7.5 mg-acetaminophen 325 mg tablet 1 tab PO TID PRN PRN pain 11/03/23 Hospital Course Operations None Procedures - (CT facial/sinus with IV contrast) Summary of Care Provided Minutes Spent on Discharge: 35 Hospital Course: Patient is an 88-year-old female who presented [facility] ED on 11/03/2023 with 1 day history of intermittent nosebleeds and difficulty swallowing. Hospital course as noted below. Patient discharged home with home health care in stable condition on 11/04. 1. Concern for angioedema ? Clinically with concern for angioedema on admission given reported difficulty swallowing and some swelling noted of soft palate and uvula. No overt risk factors for angioedema; no significant offending medications noted. Treated with IV steroids and IV Benadryl on admit with minimal change. CT facial/sinus with contrast on 11/03 showed minimal mucosal thickening of left maxillary sinus and ethmoid sinuses, nasal septal deviation towards left side midline, no other abnormalities. Speech therapy evaluated on 11/03, no issues with swallowing, recommended regular diet. Seems unlikely that patient had true angioedema. Discontinued steroids and Benadryl on 11/03, and patient remained stable on 11/04. If patient has recurrence of concerns and/or recurrence of epistaxis as noted below, recommended that she have her PCP refer her to ENT for further evaluation. 2. Epistaxis, resolved; history of chronic iron deficiency anemia ? Reported intermittent nosebleeds on day of admission. Has previous history of nosebleeds occasionally but never to this extent. Has now had no nosebleeds since admission. Hemoglobin 11.5 on admit, at baseline. Repeat hemoglobin 11.0 on hospital day 2. Stable, no need to monitor further CBCs. Unclear etiology for nosebleeds, suspected this could be secondary to dry mucosa and greater likelihood of having oozing of blood while on Coumadin. Recommended that patient continue to use nasal saline spray often and continue CPAP with warm humidified air at night. If she has recurrence of issues, recommended that she be referred to ENT for further evaluation. 3. Mild acute on chronic debility ? PT/OT/case management followed. Discharged home with home health care in stable condition. Chronic medical conditions: ? Hypertension: Continue home atenolol and Lasix. Held home losartan while inpatient, okay to resume on discharge. ? Paroxysmal A-fib on warfarin: INR therapeutic on admit. Continue home warfarin. ? Restless leg syndrome: Continue home ropinirole. ? Obesity: BMI 32 on admit. Complicates hospital course, care and prognosis. ? Osteoporosis: Continue outpatient denosumab injections. ? NEL: Continue home nocturnal CPAP. Total clinical time spent by myself addressing the patient's medical issues, reviewing all the data, and collaborating with patient's care team: 35 minutes. Physical Exam Const alert, oriented x3 and no apparent distress Constitutional Narrative: Pleasant elderly female, obese, sitting comfortably in bed, conversing normally, in no acute distress. Stable. General Appearance: cooperative and comfortable HEENT normocephalic, head/scalp atraumatic and hearing grossly normal bilaterally HEENT Narrative: Small amount of dried blood noted at back of the palate just above the uvula, improved on day of discharge. No significant swelling of the palate or uvula noted. No other abnormalities noted. Eyes PERRL, EOMs intact bilaterally and conjunctivae normal Neck full ROM Chest inspection of chest normal Resp normal respiratory effort, normal air movement, no use of accessory muscles and clear to auscultation bilaterally Cardio regular rate, regular rhythm, no murmurs and peripheral pulses 2+ throughout GI normal to inspection, nondistended, normoactive bowel sounds, soft to palpation, non-tender and non-distended Back/Spine normal ROM Extremity normal to inspection, full ROM and no pedal edema Skin no rashes or lesions noted Neuro no focal motor deficits and no sensory deficits noted Speech: speech normal Psych mental status grossly normal Weight / BMI Weight Weight: 76.1 kg Body Mass Index (BMI) 32.8 ABG / Lab / Microbiology Data 11/04/23 05:09 11/04/23 05:09 Radiography Diagnostic Testing: Radiology Impression Facial/Sinus 11/04/23 12:43 IMPRESSION: Minimal mucosal thickening of the left maxillary sinus and the ethmoid sinuses. Nasal septal deviation towards the left side of the midline. Electronically Signed: Chris Clark MD at 13:38 EDT , D/C Instructions Discharge Diet: No restrictions Meaningful Use Info Meaningful Use Meaningful Use Diagnoses (Choose all that apply): None applicable Ischemic Stroke Statin Dosing Therapy Reference: STATIN DOSE THERAPY REFERENCE: * Patients > 75 years receive moderate or high dose statin therapy. * Patients 75 years or YOUNGER should receive HIGH intensity statin dose unless contraindicated. You will be required to document reason for non-treatment if statin daily dose does not meet guidelines. HIGH DOSE STATIN THERAPY DAILY Atorvastatin > than or = to 40 mg Rosuvastatin > than or = to 20 mg Amlodipine + Atorvastatin > than or = to 2.5/40 mg Ezetimibe + Simvastatin 10/80 mg Simvastatin 80mg Discharge Plan Admission Admit Date/Time: 11/03/23 18:02 Primary Reason for Your Visit: nosebleeds and difficulty swallowing Attending Provider: Santino Haas Primary Care Provider: Hussein Swenson Consulting Providers: Valerio Abarca Instructions Additional Instructions / Restrictions: Continue all home medications as normal. If you have rebleeding from your nose or mouth area, would recommend getting a referral to ENT for further evaluation. Discharge Orders/Prescriptions Prescriptions: Continued Prolia 60 mg/mL syringe 60 mg SC [id number] Patient Comments: due February Rx Instructions: due in february atenolol 25 mg tablet 25 mg PO QAM Patient Comments: TAKE 1 TABLET BY MOUTH IN THE MORNING atenolol 50 mg tablet 50 mg PO QPM ferrous sulfate 325 mg (65 mg iron) tablet 325 mg PO DAILY ropinirole 1 mg tablet 1 mg PO TID cholecalciferol (vitamin D3) 1,000 UNIT capsule 1,000 unit PO DAILY losartan 100 MG tablet 100 mg PO DAILY magnesium oxide 420 mg tablet 420 mg PO QHS Patient Comments: TAKE 1 TABLET BY MOUTH ONCE DAILY furosemide 20 mg tablet 40 mg PO DAILY sennosides-docusate sodium [Stool Softener-Stimulant Laxat] 8.6-50 mg tablet 2 tab PO BID PRN (Reason: stool softener) warfarin 3 mg Tablet 3 mg PO SUTUTHSA hydrocodone-acetaminophen 7.5-325 mg tablet 1 tab PO TID PRN PRN (Reason: pain) Discontinued acetaminophen 500 mg tablet 500 mg PO Q6H PRN (Reason: Pain) Referrals / Follow Up: Hussein Swenson MD [Primary Care Provider] - 11/12/23 4:50 pm Disposition Disposition (needs filled in before D/C Order can be placed): Home Health Service Charges/Coding Visit Charges Inpatient E&M: 41709 Disch Hosp >30min
--- NOTE | 2023-11-05 11:58 | PHA.DC.MR.R ---
Pharmacy [facility] Med Reconciliation Pharmacy Service has performed discharge medication reconciliation for this patient. No new medications, no INR level for today. The patient's discharge medication list was reviewed for discrepancies and discrepancies were resolved. Medications at Discharge Home Medications cholecalciferol (vitamin D3) 25 mcg (1,000 unit) capsule 1,000 unit PO DAILY supplement 12/25/16 losartan 100 mg tablet 100 mg PO DAILY HTN 03/18/18 denosumab 60 mg/mL subcutaneous syringe (Prolia) 60 mg subcut [id number] osteoporosis 10/08/19 magnesium oxide 420 mg tablet 420 mg PO QHS supplement 07/24/21 ferrous sulfate 325 mg (65 mg iron) tablet 325 mg PO DAILY supplement 11/22/21 atenolol 25 mg tablet 25 mg PO QAM HTN 01/01/22 atenolol 50 mg tablet 50 mg PO QPM HTN 01/01/22 warfarin 3 mg tablet 3 mg PO SUTUTHSA Afib 04/10/22 furosemide 20 mg tablet 40 mg PO DAILY diuretic 01/28/23 ropinirole 1 mg tablet 1 mg PO TID restless leg 01/28/23 sennosides 8.6 mg-docusate sodium 50 mg tablet (Stool Softener-Stimulant Laxative) 2 tab PO BID PRN stool softener 01/28/23 hydrocodone 7.5 mg-acetaminophen 325 mg tablet 1 tab PO TID PRN PRN pain 11/03/23
--- NOTE | 2023-11-05 12:01 | CASEMGMT ---
Discharge Planning Discharge instructions sent via [facility] to [facility] the [facility]. Cassandra Church DC Planning Asst.
--- NOTE | 2023-11-05 12:05 | CASEMGMT ---
Patient has order for discharge. ALBERT NOLAN updated patient that [facility] is able to accept patient and will be reaching out to her for start of care. Patient denies further needs or help. Patient had no further questions or concerns. ALBERT NOLAN updated discharge plan.
[2023-11-05] MEDS: HYDROCODONE/APAP 7.5-325/15ML 15 ML UDC PO (12:58)
[2023-11-05] MEDS: Ferrous Sulfate 325 MG Tablet PO (12:59)
== END 2023-11-05 15:27 | disposition home health service (06) | DRG 916 ==
LOC: ED 17:58 → PCU 18:15
PROVIDERS: Admitting Provider Internal Medicine; Emergency Provider Emergency Medicine; PCP Family Medicine; Visit Provider Hospitalist
DX: T78.3XXA Angioneurotic edema, initial encounter (principal); D50.9 Iron deficiency anemia, unspecified; I48.0 Paroxysmal atrial fibrillation; G25.81 Restless legs syndrome; E66.9 Obesity, unspecified; J44.9 Chronic obstructive pulmonary disease, unspecified; I10 Essential (primary) hypertension; G47.33 Obstructive sleep apnea (adult) (pediatric); M51.36 Other intervertebral disc degeneration, lumbar region; J34.2 Deviated nasal septum; R13.10 Dysphagia, unspecified; R04.0 Epistaxis; Z68.32 Body mass index [BMI] 32.0-32.9, adult; M81.0 Age-related osteoporosis without current pathological fracture; Z79.01 Long term (current) use of anticoagulants; Z99.89 Dependence on other enabling machines and devices
CPT/HCPCS: 36415; 70487; 80048; 85025; 85610; 92610; 94640; 99284; J7030; Q9967; A4216; J3490

== ENCOUNTER → 2024-01-01 | Outpatient (CLI) | payer MEDICARE, BC, SELFPAY ==
[2024-01-01 17:31] LABS: Absolute Lymphocyte Count 1.74 X10^3/uL (0.83-4.51); Absolute Neutrophil Count 4.3 X10^3/uL (2.0-7.7); Basophil# 0.05 X10^3/uL; Basophil% 0.7 % (0-1); Eosinophil# 0.13 X10^3/uL; Eosinophils% 1.9 % (0-5); Hematocrit 36.5 % (37-47); Hemoglobin 11.2 g/dL (12.0-15.0); Lymphocyte # 1.74 X10^3/ul (0.83-4.51); Lymphocyte % 25.5 % (19-41); Mean Corp Hgb Conc 30.7 g/dL (32-36); Mean Corpuscular Hgb 27.9 pg (27.0-32.0); Mean Corpuscular Volume 90.8 fL (81-99); Mean Platelet Vol. 9.6 fl (6.2-12.0); Monocyte# 0.59 X10^3/uL; Monocyte% 8.6 % (0-10); NRBC Flagged by Analyzer 0 % (0-5); Neutrophil # 4.28 X10^3/uL (2.7-7.7); Neutrophil % 62.7 % (47-70); Platelet Count 387 K/mm3 (150-450); RBC Distribution Width CV 14.5 % (11.6-14.6); RBC Distribution Width SD 48.3 fl (35.1-43.9); Red Blood Count 4.02 M/mm3 (4.2-5.4); White Blood Count 6.8 K/mm3 (4.4-11.0)
[2024-01-01 18:01] LABS: BNP,B-Type NATRIURETIC PEPTIDE 100.9 pg/mL (0-100)
[2024-01-01 18:23] LABS: ALB/GLOB Ratio 0.8 RATIO (0.9-2.4); AST(SGOT) 22 U/L (15-37); Alanine Aminotransfer ALT/SGPT 18 U/L (13-56); Albumin, Serum 3.2 g/dL (3.2-5.0); Alkaline Phosphatase 72 U/L (45-117); Anion Gap 6 (5-15); BUN 25 mg/dL (7-18); BUN/Creat Ratio 32.1 RATIO (10-20); Calcium,Total 8.5 mg/dL (8.5-10.1); Chloride 97 mmol/L (98-107); Creatinine, Serum 0.78 mg/dL (0.55-1.02); EST Glomerular Filtration Rate 74 mL/min (>60); Est Glom Filt Rate - Afr Amer 90 mL/min (>60); Globulin 4.2 g/dL (2.2-4.2); Glucose 104 mg/dL (74-106); Potassium 4.4 mmol/L (3.5-5.1); Protein, Total 7.4 g/dL (6.4-8.2); Sodium Level 133 mmol/L (136-145); Thyroid Stim Hormone (TSH) 0.756 uIU/mL (0.358-3.740)
== END | disposition home or self-care (01) ==
LOC: MFPLAB 14:17
PROVIDERS: PCP Family Medicine; Visit Provider Family Medicine
DX: M79.89 Other specified soft tissue disorders (principal)
CPT/HCPCS: 36415; 80053; 83880; 84443; 85025

== ENCOUNTER → 2024-02-11 | Outpatient (CLI) | payer MEDICARE, BC, SELFPAY ==
[2024-02-11 15:33] LABS: Anion Gap 8 (5-15); BUN 28 mg/dL (7-18); BUN/Creat Ratio 21.2 RATIO (10-20); Calcium,Total 8.9 mg/dL (8.5-10.1); Chloride 101 mmol/L (98-107); Creatinine, Serum 1.32 mg/dL (0.55-1.02); EST Glomerular Filtration Rate 40 mL/min (>60); Est Glom Filt Rate - Afr Amer 49 mL/min (>60); Glucose 139 mg/dL (74-106); Potassium 4.2 mmol/L (3.5-5.1); Sodium Level 136 mmol/L (136-145)
[2024-02-11 15:46] LABS: BNP,B-Type NATRIURETIC PEPTIDE 85.7 pg/mL (0-100)
== END | disposition home or self-care (01) ==
LOC: MTLAB 13:27
PROVIDERS: PCP Family Medicine; Referring Provider Nurse Practitioner Family; Visit Provider Nurse Practitioner Family
DX: R06.09 Other forms of dyspnea (principal)
CPT/HCPCS: 36415; 80048; 83880

== ENCOUNTER → 2024-04-01 | Outpatient (CLI) | payer MEDICARE, BC, SELFPAY ==
--- NOTE | 2024-04-01 09:52 | CDU_ITS ---
Reason For Study: AMAUROSIS FUGAX Rt. Velocities/BP Lt. Velocities/BP Prox CCA 84.2/6.2 cm/sec. Prox CCA 97.7/8.1 cm/sec. Mid CCA 72.1/8.4 cm/sec. Mid CCA 112.5/14.2 cm/sec. Dist CCA 76.5/10.6 cm/sec. Dist CCA 92.8/11.8 cm/sec. Prox ICA 108.8/16.7 cm/sec. Prox ICA 106.3/15.5 cm/sec. Mid ICA 89.1/10.6 cm/sec. Mid ICA 136.3/21.2 cm/sec. Dist ICA 74.4/11.8 cm/sec. Dist ICA 90.6/15.7 cm/sec. Rt. ICA/CCA = 108.8/72.1=1.5. Lt. ICA/CCA = 136.3/112.5=1.2. Prox ECA 76.5/0.0 cm/sec. Prox ECA 66.8/2.9 cm/sec. Rt. Vert. 52.3/6.9 cm/sec. Lt. Vert. 65.0/10.2 cm/sec. Right Extracranial There is intimal thickening but no significant atherosclerotic plaque noted in the right common carotid artery. There is heterogeneous, irregular atherosclerotic plaque noted in the right internal carotid artery. There is heterogeneous, irregular atherosclerotic plaque noted in the right external carotid artery. Antegrade flow is noted in the right vertebral artery. Left Extracranial There is intimal thickening but no significant atherosclerotic plaque noted in the left common carotid artery. There is heterogeneous, irregular atherosclerotic plaque noted in the left internal carotid artery. There is heterogeneous, irregular atherosclerotic plaque noted in the left external carotid artery. Antegrade flow is noted in the left vertebral artery. Procedure Carotid Duplex 32426. This is a Carotid Duplex examination using B-mode, color flow and specral Doppler. The study was technically difficult. Exam performed in department. VL/Carotid Duplex Ultrasound Interpretation Summary Mild (<50%) stenosis right extracranial internal carotid. Moderate (50-69%) stenosis left extracranial internal carotid. Patent and antegrade vertebrals bilaterally. Ordering Physician: Vinayak Mendenhall Referring Physician: Hussein Swenson Performed By: Nettie Juarez RDCS, RVT
== END | disposition home or self-care (01) ==
LOC: CVS 09:50
PROVIDERS: PCP Family Medicine; Referring Provider Ophthalmology; Visit Provider Ophthalmology
DX: H35.62 Retinal hemorrhage, left eye (principal); G45.3 Amaurosis fugax
CPT/HCPCS: 93880

== ENCOUNTER → 2024-04-14 | Outpatient (CLI) | payer MEDICARE, BC, SELFPAY ==
[2024-04-14 15:36] LABS: Vitamin D,25 Hydroxy 40.5 ng/mL
[2024-04-14 15:51] LABS: PTHIN 106.4 pg/mL (18.4-80.1)
[2024-04-14 15:55] LABS: Anion Gap 9 (5-15); BUN 28 mg/dL (7-18); Calcium,Total 9.1 mg/dL (8.5-10.1); Chloride 98 mmol/L (98-107); Creatinine, Serum 0.88 mg/dL (0.55-1.02); EST Glomerular Filtration Rate 65 mL/min (>60); Est Glom Filt Rate - Afr Amer 79 mL/min (>60); Glucose 97 mg/dL (74-106); Potassium 3.6 mmol/L (3.5-5.1); Sodium Level 137 mmol/L (136-145)
== END | disposition home or self-care (01) ==
LOC: MFPLAB 12:27
PROVIDERS: PCP Family Medicine; Referring Provider Family Medicine; Visit Provider Family Medicine
DX: E83.52 Hypercalcemia (principal)
CPT/HCPCS: 36415; 80048; 82306; 83970

== ENCOUNTER 2024-05-11 11:45 | Emergency (ER) | payer MEDICARE, BC, SELFPAY ==
[2024-05-11] VITALS (15 sets, daily range): BP systolic 125–228; BP diastolic 45–105; PULSE 73–89; RESP 13–20; TEMP 36.6; O2SAT 95–99; BMI 34.0
[2024-05-11 12:12] LABS: Bedside Glucose 113 mg/dL (74-106)
--- NOTE | 2024-05-11 12:21 | EX.ED.DYSGE1 ---
HPI History of Present Illness Chief Complaint: Neuro S/Sx Informant: patient Onset/Context/Timing Onset: Today Context: Sudden Onset Timing: Intermittent Quality: Weakness Location: Left forearm and hand, bilateral lower extremities Worsened by: Nothing Relieved by: Nothing Narrative Narrative: Patient presents with possible stroke versus TIA that began today. Patient states she woke up around 5 AM today. Patient states she got some hot chocolate and sat in her chair and started watching television around 7 AM. Patient states she fell asleep and then woke up with some weakness in her left arm from the elbow distally. Patient states she had no control over this. Patient states that she called her daughter and her daughter felt like she was having some slurred speech. Patient went to see her primary care physician today. Patient states that when she was leaving her primary care physician's office, her legs felt weak. Patient states this was bilateral. Patient denies any fevers or chills. Patient does have a history of atrial fibrillation and is on Coumadin. [facility] Medical History Hypertension Lumbar compression fracture Closed compression fracture of L2 vertebra COPD (chronic obstructive pulmonary disease) Wrist fracture, right Shoulder fracture, left Osteoporosis Hiatal hernia Restless legs History of stress test HTN (hypertension) Scarlet fever Sleep apnea CPAP (continuous positive airway pressure) dependence Pulmonary hypertension Atrial fibrillation Secondary pulmonary arterial hypertension Incomplete right bundle branch block Obstructive sleep apnea Obesity Essential (primary) hypertension Multiple fractures of ribs, left side, initial encounter for closed fracture Hypertensive emergency Pneumonia Limb weakness Difficulty balancing Thyroid disease Migraines Fatigue Arthritis Community acquired pneumonia Home Medications ?Medication ?Instructions ?Recorded ?Last Taken ?Type cholecalciferol (vitamin D3) 25 1,000 unit PO DAILY supplement 12/25/16 11/03/23 History mcg (1,000 unit) capsule losartan 100 mg tablet 100 mg PO DAILY HTN 03/18/18 11/03/23 History denosumab 60 mg/mL subcutaneous 60 mg subcut [id number] osteoporosis 10/08/19 08/24/21 History syringe (Prolia) magnesium oxide 420 mg tablet 420 mg PO QHS supplement 07/24/21 11/02/23 History ferrous sulfate 325 mg (65 mg 325 mg PO DAILY supplement 11/22/21 11/03/23 History iron) tablet atenolol 25 mg tablet 25 mg PO QAM HTN 01/01/22 11/03/23 History atenolol 50 mg tablet 50 mg PO QPM HTN 01/01/22 11/02/23 History furosemide 20 mg tablet 40 mg PO DAILY diuretic 01/28/23 11/03/23 History sennosides 8.6 mg-docusate sodium 2 tab PO BID PRN stool softener 01/28/23 11/02/23 History 50 mg tablet (Stool Softener-Stimulant Laxative) hydrocodone 7.5 mg-acetaminophen 1 tab PO TID PRN PRN pain 11/03/23 11/03/23 History 325 mg tablet ropinirole 1 mg tablet 0.5 mg PO 5X/DAY restless leg 01/29/24 Unknown History warfarin 3 mg tablet 3 mg PO DAILY Afib 01/29/24 Unknown History Allergy/AdvReac Type Severity Reaction Status Date / Time cefazolin (From Ancef) Allergy Severe Swelling Verified 05/11/24 11:51 silk Allergy Intermediate itching Verified 05/11/24 11:51 duloxetine (From Cymbalta) Allergy Unknown Hives Verified 05/11/24 11:51 beet (Beet) Allergy Hives Verified 05/11/24 11:51 cantaloupe Allergy Food Verified 05/11/24 11:51 Allergy eggplant Allergy Hives Verified 05/11/24 11:51 Food Allergies: Uncoded Allergy Itching Verified 05/11/24 11:51 levofloxacin (From Levaquin) Allergy Unknown Verified 05/11/24 11:51 mold Allergy NEEDS Verified 05/11/24 11:51 FOLLOW-UP Penicillins Allergy Unknown Verified 05/11/24 11:51 tomato Allergy Food Verified 05/11/24 11:51 Allergy wheat Allergy Hives Verified 05/11/24 11:51 gabapentin (From Neurontin) AdvReac Other Verified 05/11/24 11:51 meloxicam (From Mobic) AdvReac Other Verified 05/11/24 11:51 oxycodone (From OxyIR) AdvReac Nausea Verified 05/11/24 11:51 risedronate sodium (From AdvReac Other Verified 05/11/24 11:51 Actonel) Family History Other Cancer Diabetes Heart disease Surgical History H/O radiofrequency ablation (RFA) of nerve of lumbar spine History of kyphoplasty Hx of tonsillectomy H/O partial thyroidectomy History of appendectomy History of cholecystectomy Hx of bilateral cataract extraction History of thyroid surgery Hx of appendectomy History of tonsillectomy Hx of cholecystectomy History of thymectomy History of parathyroidectomy Social History adopted: No household members: none housing: [facility] number of children: 2 current occupational status: retired current occupational exposures/hazards: No pets and animals: No leisure activities: reading and other history of recent travel: Yes (concert in [place]) Smoking Status: Never smoker alcohol intake: never substance use type: does not use caffeine: No ROS ROS ED Constitutional Constitutional ED: Denies chills or fever(s) Eyes Eyes: Denies blurry vision or change in vision ENT ENT ED: Denies rhinorrhea or sore throat Cardiovascular Cardiovascular: Denies chest pain or palpitations Respiratory/Chest Respiratory/Chest: Denies cough or dyspnea Gastrointestinal Gastrointestinal: Denies nausea or vomiting Genitourinary Genitourinary ED: Denies dysuria or hematuria Musculoskeletal Musculoskeletal: Reports back pain; Denies neck pain Integumentary Denies abscess or rash Neurologic Neurologic: Reports paresthesias LUE and weakness; Denies headache(s) Allergic/Immunologic Allergic/Immunologic ED: Denies mouth swelling or urticaria EXAM Physical Exam Const Vital Signs: 05/11/24 11:46 05/11/24 12:45 05/11/24 13:00 Temperature 98 F Temperature Source Temporal Pulse Rate 77 89 86 Respiratory Rate 20 H Blood Pressure 203/59 H 226/98 H 228/66 H Blood Pressure Mean 107 140 120 Pulse Ox 95 Oxygen Delivery Method Room Air 05/11/24 14:00 05/11/24 15:16 05/11/24 15:17 Temperature Temperature Source Pulse Rate 78 73 Respiratory Rate 20 H Blood Pressure 177/88 H 215/69 H Blood Pressure Mean 117 117 Pulse Ox 96 Oxygen Delivery Method Room Air Room Air 05/11/24 15:31 05/11/24 15:51 Temperature Temperature Source Pulse Rate 82 84 Respiratory Rate 20 H 16 Blood Pressure 212/52 H 189/74 H Blood Pressure Mean 105 112 Pulse Ox 98 98 Oxygen Delivery Method Room Air Room Air Positive well nourished and well developed General Appearance ED: well developed and NAD HEENT Reports moist mucous membranes Eyes PERRL and EOMs intact bilaterally Neck supple and no JVD Resp normal respiratory effort and clear to auscultation bilaterally Cardio regular rate and regular rhythm GI non-tender and non-distended Palpation: soft Extremity General Extremety ED: Yes edema; Negative for tenderness General Extremity: edema Neuro oriented x3, CN's II-XII intact bilaterally and no sensory deficits noted Sensorium / Orientation: alert Motor Exam: strength 5/5 throughout Psych mental status grossly normal MDM MDM MDM Narrative Medical decision making narrative: Differential diagnose includes TIA, neuropraxia, peripheral edema, electrolyte abnormality, intracranial bleeding, coagulopathy, cardiac dysrhythmia, cardiac ischemia, pneumonia, and urinary tract infection. CTA of the head and neck will be obtained to assess for intracranial bleeding, stroke, and large vessel occlusion. Chest x-ray will be obtained to assess for pneumonia and widened mediastinum. EKG will be obtained to assess for cardiac dysrhythmia and cardiac ischemia. CBC will be obtained to assess for leukocytosis and anemia. Basic metabolic profile will be obtained to assess for electrolyte abnormality and renal function. High-sensitivity troponin will be obtained to assess for cardiac ischemia. PT with INR and PTT will be obtained to assess for coagulopathy. Urinalysis will be obtained to assess for urinary tract infection and hematuria. Lab Data Attestation: I reviewed the patient's lab results. Lab results narrative: CBC was reviewed and was within normal limits. Basic metabolic profile was reviewed and was essentially within normal limits. Urinalysis was reviewed. There is no evidence of urinary tract infection or hematuria. High-sensitivity troponin was reviewed and was normal at 13. PT with INR and PTT were reviewed. Pro time was 23.7 and INR is 2.1. PTT was mildly elevated at 39.7. Labs: Laboratory Results - last 24 hr 05/11/24 05/11/24 05/11/24 11:55 12:48 13:16 WBC 7.8 RBC 4.27 Hgb 12.2 Hct 38.6 MCV 90.4 MCH 28.6 MCHC 31.6 L RDW Std Deviation 47.3 H RDW Coeff of Tiffani 14.2 Plt Count 365 MPV 9.4 Immature Gran % (Auto) 0.600 Neut % (Auto) 70.4 H Lymph % (Auto) 18.4 L Gulf % (Auto) 8.3 Eos % (Auto) 1.4 Baso % (Auto) 0.9 Absolute Neuts (auto) 5.5 Absolute Lymphs (auto) 1.44 Nucleated RBC % 0 PT Cancelled 23.7 H INR Cancelled 2.1 APTT Cancelled 39.7 H Sodium 136 Potassium 4.2 Chloride 100 Carbon Dioxide 29.0 Anion Gap 7 BUN 30 H Creatinine 0.96 Estim Creat Clear Calc 37.64 Est GFR (MDRD) Af Amer 70 Est GFR (MDRD) Non-Af 58 L BUN/Creatinine Ratio 31.2 H Glucose 124 H Calcium 9.4 Troponin I High Sens 13 Urine Color Straw Urine Clarity Clear Urine pH 8.0 Ur Specific Clare 1.010 Urine Protein Negative Urine Glucose (UA) Normal Urine Ketones Negative Urine Occult Blood Negative Urine Nitrite Negative Urine Bilirubin Negative Urine Urobilinogen Normal Ur Leukocyte Esterase Negative Urine RBC 0 SEEN Urine WBC 0 SEEN Ur Squamous Epith Cells 0 SEEN Urine Bacteria 0 SEEN Urine Mucus 0 SEEN POC Glucose 113 H Radiography Diagnostic Testing: Clinical Impression(s) from Imaging Studies Brain CT 05/11/24 12:29 IMPRESSION: Acute parenchymal hemorrhage high in the right parietal convexity without associated edema and mass effect or midline shift at this point. Age consistent senescent changes elsewhere, no territorial infarcts noted. Ventricles and cisterns are normal for age N.B. : The above Results were Read Back by Jong Melendez MD to Dr. Elizabet MD, and understanding confirmed on 05/11/2024 14:04:33 (ET). Electronically Signed: Jong Melendez MD at 14:08 EST Reading Location ID and State: [facility] / [place] , Service support , CT scan of the brain was obtained. There is a intraparenchymal hemorrhage hide in the right parietal convexity. There is no associated edema, mass effect, or midline shift. There is no other acute abnormality. This was interpreted by the radiologist and was also independently reviewed by myself. EKG Initial EKG: Attestation: I personally reviewed and interpreted this EKG as follows: Interpretation: Sinus Rhythm (71), No Acute Injury Pattern and RBBB Comments: EKG was obtained. On my independent interpretation, it shows a normal sinus rhythm with a rate of 71. WV interval was normal at 182 ms. QRS interval was slightly prolonged at 124 ms. QTc interval was normal at 452 ms. There is borderline left axis deviation at -18. There is a right bundle branch block pattern noted. There are no acute ST or T wave changes noted. Prior EKG tracings: available for review Prior: Unchanged (05/18/2022) Treatment and Re-Evaluation :: Patient has a NIH stroke score of 0. Therefore, stroke alert was not called. Patient was advised of her findings. Patient was given a dose of labetalol. Patient blood pressure will need to be continually monitored and decreased. Patient was advised of the need for transfer. Patient requested transfer to [facility]. Case was discussed with Dr. Khan from neurosurgery and Dr. Morales from critical care. Patient was accepted to [facility]. They will auto launch. Patient was given a dose of vitamin K here. Patient was started on nicardipine drip. Patient and family understand and are agreeable with the plan. All questions were answered. 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 anticoagulants Prescriptions: No Action Prolia 60 mg/mL syringe 60 mg SC [id number] Patient Comments: due February Rx Instructions: due in february atenolol 25 mg tablet 25 mg PO QAM Patient Comments: TAKE 1 TABLET BY MOUTH IN THE MORNING atenolol 50 mg tablet 50 mg PO QPM ferrous sulfate 325 mg (65 mg iron) tablet 325 mg PO DAILY ropinirole 1 mg tablet 0.5 mg PO 5X/DAY cholecalciferol (vitamin D3) 1,000 UNIT capsule 1,000 unit PO DAILY losartan 100 MG tablet 100 mg PO DAILY magnesium oxide 420 mg tablet 420 mg PO QHS Patient Comments: TAKE 1 TABLET BY MOUTH ONCE DAILY furosemide 20 mg tablet 40 mg PO DAILY sennosides-docusate sodium [Stool Softener-Stimulant Laxat] 8.6-50 mg tablet 2 tab PO BID PRN (Reason: stool softener) warfarin 3 mg tablet 3 mg PO DAILY Rx Instructions: Managed by Dr. Swenson hydrocodone-acetaminophen 7.5-325 mg tablet 1 tab PO TID PRN PRN (Reason: pain) Primary Care Provider: Hussein Swenson Referrals: Hussein Swenson MD [Primary Care Provider] - Print Language: Frisian Disposition Disposition: Acute Care Hospital Discharge Location: [facility]
--- NOTE | 2024-05-11 12:29 | CT_ITS ---
STUDY: CT BRAIN WITHOUT CONTRAST REASON FOR EXAM: Female, 89 years old. Mental status change RADIATION DOSAGE (If Supplied By Facility): CTDIvol = ( 38.43 ) mGy, DLP = ( 683.87 ) mGycm TECHNIQUE: Transaxial CT imaging of the brain was performed without administration of intravenous contrast material. Individualized dose optimization techniques were used for this CT. COMPARISON: 2017 FINDINGS: Normal soft tissue structures. Normal calvarium. There is acute parenchymal hemorrhage high in the right parietal convexity without associated edema and mass effect or midline shift. There is mild cerebral atrophy with widening of the extra-axial spaces and ventricular dilatation. There are areas of decreased attenuation within the white matter tracts of the supratentorial brain, consistent with microvascular disease changes. Normal basal ganglia and thalami. Normal brainstem. Normal cerebellum. There are no findings of an acute ischemic infarction. Normal visualized paranasal sinuses. CT/Brain/Head without Contrast IMPRESSION: Acute parenchymal hemorrhage high in the right parietal convexity without associated edema and mass effect or midline shift at this point. Age consistent senescent changes elsewhere, no territorial infarcts noted. Ventricles and cisterns are normal for age N.B. : The above Results were Read Back by Jong Melendez MD to Dr. Elizabet MD, and understanding confirmed on 05/11/2024 14:04:33 (ET). Electronically Signed: Jong Melendez MD at 14:08 EST ,
--- NOTE | 2024-05-11 12:29 | EKG12_ITS ---
Test Reason : Blood Pressure : */* mmHG Vent. Rate : 71 BPM Atrial Rate : 71 BPM P-R Int : 182 ms QRS Dur : 124 ms QT Int : 416 ms P-R-T Axes : 42 -18 40 degrees QTcB Int : 452 ms Normal sinus rhythm Right bundle branch block Septal infarct (cited on or before 18-May-2022) Abnormal ECG Confirmed by JAHAIRA URBAN, OTONIEL ([id number]), department editor SUDEEP GALLO ([id number]) on 05/13/2024 6:16:35 AM Referred By: Confirmed By: OTONIEL CAMPO MD
[2024-05-11 13:04] LABS: Bacteria 0 SEEN /hpf (None Seen); Mucous, Urine 0 SEEN /hpf (<or=2+); Red Blood Cells-Urine 0 SEEN /hpf (0-5); Squamous Epithelial Cells - UA 0 SEEN /hpf (5-10); White Blood Cells 0 SEEN /hpf (0-5)
[2024-05-11 13:05] LABS: Absolute Lymphocyte Count 1.44 X10^3/uL (0.83-4.51); Absolute Neutrophil Count 5.5 X10^3/uL (2.0-7.7); Basophil# 0.07 X10^3/uL; Basophil% 0.9 % (0-1); Eosinophil# 0.11 X10^3/uL; Eosinophils% 1.4 % (0-5); Hematocrit 38.6 % (37-47); Hemoglobin 12.2 g/dL (12.0-15.0); Lymphocyte # 1.44 X10^3/ul (0.83-4.51); Lymphocyte % 18.4 % (19-41); Mean Corp Hgb Conc 31.6 g/dL (32-36); Mean Corpuscular Hgb 28.6 pg (27.0-32.0); Mean Corpuscular Volume 90.4 fL (81-99); Mean Platelet Vol. 9.4 fl (6.2-12.0); Monocyte# 0.65 X10^3/uL; Monocyte% 8.3 % (0-10); NRBC Flagged by Analyzer 0 % (0-5); Neutrophil # 5.51 X10^3/uL (2.7-7.7); Neutrophil % 70.4 % (47-70); Platelet Count 365 K/mm3 (150-450); RBC Distribution Width CV 14.2 % (11.6-14.6); RBC Distribution Width SD 47.3 fl (35.1-43.9); Red Blood Count 4.27 M/mm3 (4.2-5.4); White Blood Count 7.8 K/mm3 (4.4-11.0)
[2024-05-11 13:09] LABS: Color, Urine Straw (Yellow); Glucose, Dipstick Normal (Normal); Ketone-Dipstick Negative (Negative); Leukocyte Esterase-Dipstick Negative /ul (Negative); Nitrite-Dipstick Negative (Negative); Occult Blood-Urine Negative /ul (Negative); Protein-Dipstick Negative (Negative); Urine Bilirubin Dipstick Negative (Negative); Urine Clarity Clear (Clear); Urine Urobilinogen Normal (Normal)
[2024-05-11 13:33] LABS: International Normalized Ratio 2.1; Prothrombin Time (Protime)PT. 23.7 SECONDS (11.7-14.9)
[2024-05-11 13:33] LABS: Anion Gap 7 (5-15); BUN 30 mg/dL (7-18); BUN/Creat Ratio 31.2 RATIO (10-20); Calcium,Total 9.4 mg/dL (8.5-10.1); Chloride 100 mmol/L (98-107); Creatinine, Serum 0.96 mg/dL (0.55-1.02); EST Glomerular Filtration Rate 58 mL/min (>60); Est Glom Filt Rate - Afr Amer 70 mL/min (>60); Estimated Creatinine Clearance 37.64 ml/min; Glucose 124 mg/dL (74-106); Potassium 4.2 mmol/L (3.5-5.1); Sodium Level 136 mmol/L (136-145); Troponin-I HS 13 pg/mL (3.0-54.0)
[2024-05-11 13:34] LABS: Partial Thromboplast Time 39.7 Seconds (24.1-36.2)
[2024-05-11] MEDS: Nicardipine HCl-0.9% Sod Chlor 20 MG/200 ML IV.SOLN 50 MG CONT INF (15:51)
--- NOTE | 2024-05-11 15:56 | ED.RN ---
UNABLE TO FLY D/T WEATHER. [facility] SENDING GROUND TRANSPORT ETA 1640.
--- NOTE | 2024-05-11 16:02 | ED.RN ---
ACCEPTED AT [facility] MAIN G 20 BED 2 @ 1531
--- NOTE | 2024-05-11 16:38 | ED.RN ---
[facility] transport at pt. bedside
--- NOTE | 2024-05-11 16:43 | ED.RN ---
1630: PHARMACY CALLED FOR VITAMIN K AT THIS TIME 1643: TRANSPORT WAITING ON MEDICATIONS FROM PHARMACY
[2024-05-11] MEDS: Phytonadione (Vit K) 5 MG in 0.9% Normal Saline (50mL Bag) 50 ML 150 MG IV (16:46)
--- NOTE | 2024-05-11 16:58 | ED.RN ---
1659: REPORT CALLED TO [facility] MAIN NURSE, JARON AT THIS TIME. NO FURTHER QUESTIONS BY THE RECIEVING NURSE.
== END 2024-05-11 16:46 | disposition short-term general hospital (02) ==
PROVIDERS: Emergency Provider Emergency Medicine; PCP Family Medicine; Visit Provider Emergency Medicine
DX: I61.9 Nontraumatic intracerebral hemorrhage, unspecified (principal); I27.21 Secondary pulmonary arterial hypertension; J44.9 Chronic obstructive pulmonary disease, unspecified; I48.91 Unspecified atrial fibrillation; R29.700 NIHSS score 0; I10 Essential (primary) hypertension; R47.81 Slurred speech; Z79.01 Long term (current) use of anticoagulants; Z79.82 Long term (current) use of aspirin; Z79.899 Other long term (current) drug therapy; G47.33 Obstructive sleep apnea (adult) (pediatric)
CPT/HCPCS: 70450; 80048; 81001; 82962; 84484; 85025; 85610; 85730; 93005; 96365; 96375; 99285; A4216

== ENCOUNTER 2024-05-16 16:02 | Inpatient (IN) | payer MEDICARE, BC, SELFPAY ==
[2024-05-16] VITALS (7 sets, daily range): BP systolic 139–210; BP diastolic 30–65; PULSE 66–77; RESP 16–20; TEMP 35.8–36.2; O2SAT 94–97; BMI 31.7
[2024-05-16] MEDS: Losartan Potassium 100 MG Tablet PO (17:56)
[2024-05-16] MEDS: Metoprolol Tartrate 25 MG Tablet PO (17:56)
--- NOTE | 2024-05-16 18:13 | EX.PCM.HP.RE ---
HPI - General General Date of Admission: 05/16/24 Date of Service: 05/17/24 Chief Complaint: Here for 3 hours daily rehabilitation. HPI Narrative JOYCE SOLOMON, is a 89 Female who presents with followin05/11/2024 [facility] ED with Neurologic signs and symptoms. Stroke versus TIA, left upper extremity weakness, slurred speech. Saw PCP, bilateral legs felt weak, on coumadin for atrial fibrillation. CBCD okay, BMP okay, Urinalysis okay, Troponin okay, INR 2.1, on coumadin. CT head showed right parietal acute intraparenchymal hemorrhage, coumadin reversed with KCentra. NIHSS 0. Transfer to [facility]. 05/11/2024 Admit to [facility] NICU. SBP > 200, started on Nicardipine. NIHSS 2. 05/12/2024 CT brain shows increased volume in SAH, but no clear ICH. Neurosurgery recommended no surgery. Blood cultures negative. MRI brain showed small volume SAH. 05/13/2024 TTE negative vegetation. 05/13/2024 Transcranial doppler ultrasound negative vasospasm. 05/14/2024 MARIA ESTHER negative vegetation, negative endocarditis. Fluctuating left upper extremity weakness. EEG negative seizures. 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 Follow up with stroke neurology. Follow up with cardiology to consider Watchman procedure. Repeat CT head no contrast in 4 weeks (06/16/2024). Coumadin stopped, Aspirin 81mg daily instead. 05/16/2024 Admit to for 3 hours daily rehabilitation, strengthening, prior to discharge home alone. On arrival, bladderscan 925mL, blood pressure 210/65. FOR[facility]LY [facility], [facility] Medical History (Updated 05/16/24 @ 18:[address] Aleks Marshall MD) Osteoporosis Hypertension Lumbar compression fracture Closed compression fracture of L2 vertebra COPD (chronic obstructive pulmonary disease) Wrist fracture, right Shoulder fracture, left Hiatal hernia Restless legs History of stress test HTN (hypertension) Scarlet fever Sleep apnea CPAP (continuous positive airway pressure) dependence Pulmonary hypertension Atrial fibrillation Secondary pulmonary arterial hypertension Incomplete right bundle branch block Obstructive sleep apnea Obesity Essential (primary) hypertension Multiple fractures of ribs, left side, initial encounter for closed fracture Hypertensive emergency Pneumonia Limb weakness Difficulty balancing Thyroid disease Migraines Fatigue Arthritis Community acquired pneumonia Home Medications ?Medication ?Instructions ?Recorded ?Last Taken ?Type losartan 100 mg tablet 50 mg PO DAILY HTN 03/18/18 11/03/23 History denosumab 60 mg/mL subcutaneous 60 mg subcut [id number] osteoporosis 10/08/19 08/24/21 History syringe (Prolia) magnesium oxide 420 mg tablet 400 mg PO QHS supplement 07/24/21 11/02/23 History atenolol 25 mg tablet 25 mg PO QAM HTN 01/01/22 11/03/23 History sennosides 8.6 mg-docusate sodium 2 tab PO BID stool softener 01/28/23 11/02/23 History 50 mg tablet (Stool Softener-Stimulant Laxative) ropinirole 1 mg tablet 0.5 mg PO Q4H restless leg 01/29/24 Unknown History acetaminophen 325 mg capsule 650 mg PO Q4H PRN pain 05/16/24 Unknown History aspirin 81 mg chewable tablet 1 tab PO DAILY Heart health 05/16/24 Unknown History lidocaine 4 % topical patch 1 patch topical DAILY pain 05/16/24 05/16/24 History melatonin 3 mg capsule 3 mg PO QHS PRN insomnia 05/16/24 Unknown History Allergy/AdvReac Type Severity Reaction Status Date / Time cefazolin (From Ancef) Allergy Severe Swelling Verified 05/11/24 11:51 silk Allergy Intermediate itching Verified 05/11/24 11:51 duloxetine (From Cymbalta) Allergy Unknown Hives Verified 05/11/24 11:51 beet (Beet) Allergy Hives Verified 05/11/24 11:51 cantaloupe Allergy Food Verified 05/11/24 11:51 Allergy eggplant Allergy Hives Verified 05/11/24 11:51 Food Allergies: Uncoded Allergy Itching Verified 05/11/24 11:51 levofloxacin (From Levaquin) Allergy Unknown Verified 05/11/24 11:51 mold Allergy NEEDS Verified 05/11/24 11:51 FOLLOW-UP Penicillins Allergy Unknown Verified 05/11/24 11:51 tomato Allergy Food Verified 05/11/24 11:51 Allergy wheat Allergy Hives Verified 05/11/24 11:51 gabapentin (From Neurontin) AdvReac Other Verified 05/11/24 11:51 meloxicam (From Mobic) AdvReac Other Verified 05/11/24 11:51 oxycodone (From OxyIR) AdvReac Nausea Verified 05/11/24 11:51 risedronate sodium (From AdvReac Other Verified 05/11/24 11:51 Actonel) Family History Other Cancer Diabetes Heart disease Surgical History H/O radiofrequency ablation (RFA) of nerve of lumbar spine History of kyphoplasty Hx of tonsillectomy H/O partial thyroidectomy History of appendectomy History of cholecystectomy Hx of bilateral cataract extraction History of thyroid surgery Hx of appendectomy History of tonsillectomy Hx of cholecystectomy History of thymectomy History of parathyroidectomy Social History adopted: No household members: none housing: [facility] number of children: 2 current occupational status: retired current occupational exposures/hazards: No pets and animals: No leisure activities: reading and other history of recent travel: Yes ([employer] in [place]) Smoking Status: Never smoker alcohol intake: never substance use type: does not use caffeine: No Vital Signs Vital Signs Vital Signs: 05/16/24 17:23 05/16/24 17:56 Temperature 97.2 F L Temperature Source Temporal Pulse Rate 68 66 Respiratory Rate 16 Blood Pressure 178/56 H 210/65 H Blood Pressure Mean 96 Blood Pressure Source Monitor Blood Pressure Position Semi-Fowlers Blood Pressure Location Left Arm Pulse Ox 95 Oxygen Delivery Method Room Air Weight Weight: 73.737 kg Body Mass Index (BMI) 31.7 Indicators for Scoring Admitted with or Primary Diagnosis of CVA/Stroke: Yes Hx of CVA/Stroke: Yes Modified [place] Score MRS Score at time of Evaluation: 3-Moderate disability NIHSS NIHSS 1a. Level of Consciousness: Alert; keenly responsive 1b. LOC Questions: Answers BOTH questions correctly. 1c. LOC Commands: Performs both tasks correctly. 2. Best Gaze: Normal 3. Visual: No visual loss 4. Facial Palsy: Normal symmetrical movements 5a. Left Arm: No drift; arm holds 90 (or 45) degrees for full 10 seconds 5b. Right Arm: No drift; arm holds 90 (or 45) degrees for full 10 seconds 6a. Left Leg: No drift; leg holds 30-degree position for full 5 seconds 6b. Right Leg: No drift; leg holds 30-degree position for full 5 seconds 7. Limb Ataxia: Absent 8. Sensory: Normal; no sensory loss 9. Best Language: No aphasia; normal 10. Dysarthria: Normal 11. Extinction and Inattention: No abnormality Total: 0 Physical Exam Const alert General Appearance: cooperative HEENT normocephalic Eyes PERRL and EOMs intact bilaterally Neck supple, no JVD and no carotid bruits Resp normal respiratory effort, normal air movement and clear to auscultation bilaterally Cardio regular rate and regular rhythm GI normal to inspection, nondistended, normoactive bowel sounds, non-tender and non-distended Extremity normal capillary refill General Extremity: Negative for edema Skin no rashes or lesions noted General Skin Exam: no breakdown Neuro Neuro Narrative: Mild left upper extremity hemiparesis. Psych affect normal Appearance: appropriate Results Lab / Micro Data 05/17/24 05:07 05/17/24 05:07 Assessment & Plan Assessment/Plan (1) Debility: (2) Subarachnoid hemorrhage: (3) Atrial fibrillation: (4) Essential (primary) hypertension: (5) Vitamin D deficiency: (6) Hypomagnesemia: (7) Iron deficiency anemia: (8) Restless leg syndrome: (9) Hyperlipidemia: (10) Osteoporosis: (11) Hypothyroidism: PLAN: Plan 89 year old female with below past medical history hospitalized for acute subarachnoid hemorrhage, treated non-surgically, endocarditis ruled out, eeg negative for seizures, admitted to for 3 hours daily rehabilitation, strengthening, prior to discharge home alone. Debility - PT/OT/ST. Pain - Tylenol 650mg q4 prn, Lidoderm patch 1 patch td daily. Bowel - Senna/colace 2 tablets bid, Dulcolax 10mg pr x 1 prn, MOM 30mL po x 1 prn. Hemorrhagic stroke - Aspirin 81mg daily. Hypertension - Metoprolol 25mg bid, Losartan 100mg daily, Hydralazine 25mg tid prn SBP > 160. Atrial fibrillation - Metoprolol 25mg bid, Aspirin 81mg daily, consider Watchman procedure. Hypomagnesemia - Magnesium chloride 128mg qhs. Insomnia - Melatonin 3mg qhs prn. Restless Leg syndrome - Mirapex 0.5mg q4. Urinary retention - Tamsulosin 0.4mg daily, monitor bladderscan.
[2024-05-16] MEDS: hydrALAZINE 25 MG Tablet PO (18:52)
[2024-05-16] MEDS: Senna/Docusate Sodium 1 Tablet 2 TABLET PO (21:03)
[2024-05-16] MEDS: Magnesium Chloride 64 MG Delay Rel.Tablet 128 MG PO (21:04)
[2024-05-16] MEDS: Pramipexole Di-HCl 0.25 MG Tablet PO (21:04)
[2024-05-16] MEDS: Acetaminophen 325 MG Tablet 650 MG PO (21:08)
[2024-05-16] MEDS: MELATONIN 3 MG TABLET PO (21:08)
--- NOTE | 2024-05-16 22:45 | NURSING ---
Pt called out, states she fell asleep for awhile and woke up very warm and states her left hand arm feels numb and like it just flops around, neuro assessment WNL and able to move all extremities, denies chest pain or nausea, denies blurry vision, double vision, and headache. States it feels just like before her brain bleed before. Nursing concrete paving supervisor called to also assess pt.
--- NOTE | 2024-05-16 23:29 | CT_ITS ---
INDICATION: lt side numbness EXAMINATION: CT BRAIN - CT Head or Brain W/O Contrast Injection TECHNIQUE: Multiple axial images were obtained of the head without intravenous contrast. A radiation dose optimization technique was used for this scan. IV Contrast dosage and agent: None. RADIATION DOSAGE (If Supplied By Facility): CTDIvol = ( 44.99 ) mGy, DLP = ( 779.23 ) mGycm COMPARISON: Prior study dated: 05/11/2024 FINDINGS: BRAIN PARENCHYMA: Improving high right frontal subarachnoid hemorrhage. No new intracranial hemorrhage. No evidence of acute infarct. No intracranial mass or mass effect. There is preservation of the keane/white matter interface. Posterior fossa structures are unremarkable. Patchy periventricular and deep white matter hypoattenuation is consistent with mild small vessel ischemic change. CSF SPACES: Proportional prominence of the ventricles and sulcal spaces is consistent with mild cerebral volume loss. No hydrocephalus. Basal cisterns are patent. CALVARIUM, SKULL BASE, PARANASAL SINUSES AND MASTOID AIR CELLS: The mastoid air cells and visualized paranasal sinuses are well aerated. The calvarium is intact. No discrete lytic or blastic abnormalities. ORBITS: Both globes, extraocular muscles, optic nerves and retrobulbar fat appear unremarkable. CT/Brain/Head without Contrast IMPRESSION: Improving high right frontal subarachnoid hemorrhage. No new intracranial finding. Electronically Signed: Neto Rodriguez MD at 0:06 EST ,
--- NOTE | 2024-05-16 23:29 | NURSING ---
Dr. Marshall notified of pt c/o about Left arm/hand numbness and vitals, NIH assessment, new order for stat head CT.
[2024-05-17] MEDS: Pramipexole Di-HCl 0.25 MG Tablet PO ×2 (01:12→05:34)
[2024-05-17 05:35] VITALS: BP 167/59; PULSE 69; RESP 20; TEMP 36.7; O2SAT 96
[2024-05-17 06:00] LABS: Absolute Lymphocyte Count 1.66 X10^3/uL (0.83-4.51); Absolute Neutrophil Count 4.6 X10^3/uL (2.0-7.7); Basophil# 0.07 X10^3/uL; Basophil% 0.9 % (0-1); Eosinophil# 0.39 X10^3/uL; Eosinophils% 5.1 % (0-5); Hematocrit 34.6 % (37-47); Hemoglobin 10.7 g/dL (12.0-15.0); Lymphocyte # 1.66 X10^3/ul (0.83-4.51); Lymphocyte % 21.8 % (19-41); Mean Corp Hgb Conc 30.9 g/dL (32-36); Mean Corpuscular Hgb 28.1 pg (27.0-32.0); Mean Corpuscular Volume 90.8 fL (81-99); Mean Platelet Vol. 9.7 fl (6.2-12.0); Monocyte# 0.82 X10^3/uL; Monocyte% 10.8 % (0-10); NRBC Flagged by Analyzer 0 % (0-5); Neutrophil # 4.63 X10^3/uL (2.7-7.7); Neutrophil % 60.7 % (47-70); Platelet Count 369 K/mm3 (150-450); RBC Distribution Width CV 14.3 % (11.6-14.6); RBC Distribution Width SD 47.6 fl (35.1-43.9); Red Blood Count 3.81 M/mm3 (4.2-5.4); White Blood Count 7.6 K/mm3 (4.4-11.0)
[2024-05-17 06:36] LABS: ALB/GLOB Ratio 0.8 RATIO (0.9-2.4); AST(SGOT) 28 U/L (15-37); Alanine Aminotransfer ALT/SGPT 20 U/L (13-56); Alkaline Phosphatase 59 U/L (45-117); Anion Gap 5 (5-15); BUN 28 mg/dL (7-18); BUN/Creat Ratio 34.4 RATIO (10-20); Calcium,Total 8.8 mg/dL (8.5-10.1); Chloride 106 mmol/L (98-107); Creatinine, Serum 0.82 mg/dL (0.55-1.02); EST Glomerular Filtration Rate 70 mL/min (>60); Est Glom Filt Rate - Afr Amer 85 mL/min (>60); Estimated Creatinine Clearance 42.52 ml/min; Globulin 3.7 g/dL (2.2-4.2); Glucose 102 mg/dL (74-106); Magnesium 2.4 mg/dL (1.6-2.6); Phosphorus 2.4 mg/dL (2.5-4.9); Potassium 4.1 mmol/L (3.5-5.1); Protein, Total 6.7 g/dL (6.4-8.2); Sodium Level 136 mmol/L (136-145)
[2024-05-17 10:01] VITALS: PULSE 69
[2024-05-17] MEDS: Metoprolol Tartrate 25 MG Tablet PO ×2 (10:01→21:51)
[2024-05-17] MEDS: Senna/Docusate Sodium 1 Tablet 2 TABLET PO ×2 (10:01→21:52)
[2024-05-17] MEDS: Losartan Potassium 100 MG Tablet PO (10:02)
[2024-05-17] MEDS: Aspirin 81 MG TAB.CHEW PO (10:02)
[2024-05-17] MEDS: Lidocaine 5% Patch 1 PATCH TOPICAL (10:02)
[2024-05-17] MEDS: Pramipexole Di-HCl 0.5 MG Tablet PO ×4 (11:18→21:52)
[2024-05-17] MEDS: Acetaminophen 325 MG Tablet 650 MG PO (16:05)
[2024-05-17 16:08] LABS: Bacteria 0 SEEN /hpf (None Seen); Mucous, Urine 0 SEEN /hpf (<or=2+); Red Blood Cells-Urine 0 SEEN /hpf (0-5); Squamous Epithelial Cells - UA 0 SEEN /hpf (5-10)
[2024-05-17 17:03] LABS: Color, Urine Yellow (Yellow); Glucose, Dipstick Normal (Normal); Ketone-Dipstick Negative (Negative); Leukocyte Esterase-Dipstick 100 /ul (Negative); Nitrite-Dipstick Negative (Negative); Occult Blood-Urine 10 /ul (Negative); Protein-Dipstick 15 mg/dl (Negative); Urine Bilirubin Dipstick Negative (Negative); Urine Clarity Sl. Cloudy (Clear); Urine Urobilinogen Normal (Normal)
[2024-05-17 17:04] VITALS: O2SAT 93
[2024-05-17] MEDS: Tamsulosin HCl 0.4 MG Capsule PO (17:11)
[2024-05-17 17:24] VITALS: BP 147/44; PULSE 69; RESP 16; TEMP 37; O2SAT 95
--- NOTE | 2024-05-17 17:25 | CPS ---
Pt has her own BIPAP and is compliant with wearing it.
--- NOTE | 2024-05-17 19:14 | REHABEVAL_ITS ---
Admission Information Primary Diagnosis:: SAH. Status Changes from Prescreening?: No changes Identified Actual Problem List:: Falls, Pain, ALteration in Cmfrt, Alteration in Sleep, Mobility Impaired, Ineffective Communication, Know.Dfct/Disease Process, Know.Dfct of Medicaitons and Alteration-Leisure Activ. Potential Problem List:: DVT, Bleeding, Infection, UTI, Aspiration, Falls, Skin Integrity and Depression Risk of Complications DVT: QUINTON Hose Bleeding: Monitor Lab Values, Nursing to Teach Precautions for anti-coagulation therapy., Wound, if applicable, to be assessed every shift. and Stroke patients assessed for lethargy or change in status. Infection: Clinical Staff to Monitor for S/S of infection: and S/S of infection include fever, redness, warmth, etc. Urinary Tract Infection: Monitor for frequency, burning, discomfort, or incontinence. and Nursing will obtain urine sample for urinalysis and C&S when ordered. Aspiration: Clinical staff will monitor for coughing, drooling, congestion., Speech will evaluate swallowing and dsyphasia. and Nursing will monitor patient swallowing during meals. Falls: Patient will be evaluated for Fall Precautions and Patient will be placed on Fall Precautions as indicated per protocol. Skin Breakdown: Nursing will assess skin daily using assessment tool. and Nursing will place on Skin Breakdown Precautions as indicated. Pain: Clinical staff will assess patient's pain level per protocol., Medications will be given, if needed, and the pain level reassessed. and Other methods: Massage, distraction, decrease stimulus, etc. used PRN. Plan of Care Patient requires physician specializing in physical medicine and rehab oversight to provide close medical supervision of rehab issues including: Pain Management, Sleep Problems, Bowel and Bladder, Medical and co-morbidity Management, DVT prophylaxis, Rehabilitation Leadership and Coordination of treatment team Patient needs Physical Therapy: For a minimum of 1 hour Patient needs Physical Therapy to improve:: Mobility, Strengthening, Transfers, Stretching, ROM, Endurance, Stairs, Gait and Balance Patient needs Occupational Therapy: For a minimum of 1 hour Patient needs Occupational Therapy to improve ADL's incl.: Eating, Grooming, Bathing, Dressing, Toileting, Toilet transfers, Community Reintegration, Higher functioning activities, Household tasks, Adaptive Equipment, Splinting and Other activities as determined Patient requires speech therapy: For a minimum of 1 hour Patient requires speech therapy for: Swallowing, Cognition, Language Skills and Compensatory Strategies Patient requires 24/7 Rehabilitation Nursing for: Pain Issues, Identifying and preventing risk factors, Monitoring and reporting current medical conditions, Assisting with ambulation, transfer, and all ADL's, Teaching patients about disease process and medications, Family teaching, Providing safe environment, Bowel and Bladder Issues, Skin integrity and Medication Management Patient needs Physician Assistant/ Case Management for: Discharge Planning, Arranging Home Equipment or Services and Family Interventions Patient needs Dietary and Nutrition Services for: Adequate Nutrition, Nutritional Supplements and Nutritional Education Goals Goals Patient will remain: free from falls and or injury at time of discharge. Patient will perform eating at: MOD I level of assist. Patient will perform bed mobility at: MOD I level of assist. Patient will complete transfers from bed to chair at: MOD I level of assist. Patient will ambulate: with standby assist, with LRD and - (250 feet.) Patient will complete upper body dressing at: MOD I level of assist. Patient will complete toilet transfer at: MOD I level of assist. (with AE.) Patient will complete toileting at: MOD I level of assist. Patient will perform bathing at: MOD I level of assist. (with AE.) Patient will perform Tub/Shower transfer at: - (Sup.) Patient will complete grooming at: MOD I level of assist. Patient will complete home management skills at: MOD I level of assist. Patient will have pain level of: of 3 or less Patient's skin will: remain intact and free from infection. Patient will receive: adequate nutrition. Discharge Planning Pt Prognosis for Sig. Practical Improv. w/in Reasonable Time: Good Estimated Length of stay (days): 21 Anticipated D/C Destination: Home with Home Health Was Preadmission Assessment Accurate?: Yes
[2024-05-17 19:19] LABS: White Blood Cells 5-10 SEEN /hpf (0-5)
[2024-05-17 21:51] VITALS: BP 139/42; PULSE 78
[2024-05-17] MEDS: Magnesium Chloride 64 MG Delay Rel.Tablet 128 MG PO (21:52)
[2024-05-18] MEDS: Acetaminophen 325 MG Tablet 650 MG PO ×2 (00:26→21:24)
[2024-05-18] MEDS: Pramipexole Di-HCl 0.5 MG Tablet PO ×3 (01:24→09:21)
[2024-05-18 06:00] VITALS: BP 146/51; PULSE 67; RESP 18; TEMP 36.3; O2SAT 96
[2024-05-18] MEDS: Senna/Docusate Sodium 1 Tablet 2 TABLET PO ×2 (09:20→21:04)
[2024-05-18] MEDS: Aspirin 81 MG TAB.CHEW PO (09:20)
[2024-05-18] MEDS: Losartan Potassium 100 MG Tablet PO (09:20)
[2024-05-18 09:21] VITALS: BP 146/51; PULSE 67
[2024-05-18] MEDS: Lidocaine 5% Patch 1 PATCH TOPICAL (09:21)
[2024-05-18] MEDS: Metoprolol Tartrate 25 MG Tablet PO ×2 (09:21→21:02)
--- NOTE | 2024-05-18 09:48 | PN_ITS ---
Subjective Subjective Afebrile VSS -heart rate is within normal limits with no bradycardia no tachycardia. Blood pressure over the past 48 hours has ranged from 139/44 to 167/59. Maintaining appropriate oxygen saturation on RA Oral intake - FOOD good FLUIDS adequate Discussed with nursing - no problems that need addressed Reviewed the THERAPY notes Medication list reviewed. History and physical done by Dr. Marshall was personally reviewed. Patient had a subarachnoid hemorrhage on 05/11/2024. She takes Coumadin for atrial fibrillation. Was transferred to [facility]. No surgery was done. MRI of the brain showed a small volume subarachnoid hemorrhage. Transthoracic echocardiogram was negative for vegetation. Echocardiogram in the past that showed a 65% EF with 2+ MR, 2+ TR, mild focal aortic valve thickening with no stenosis and a right ventricular systolic pressure estimated to be 40 mmHg. EEG negative for seizures. She was diagnosed with brain bleed secondary to cerebral amyloid angiopathy in setting of anticoagulation with warfarin. Follow-up with cardiology was recommended to consider Watchman procedure. Will need repeat CT head in 4 weeks, 06/16/2024. No anticoagulation at discharge from [facility] but she is on aspirin 81 mg daily. Admitted to acute inpatient rehab at [facility] on 05/16/2024 for 3 hours of therapy daily. On arrival bladder scan was 925 cc and she had to have a Patricio catheter inserted. She was started on Flomax. Blood pressure was 210/65 at arrival to [facility]. All lab done yesterday was personally reviewed. White blood cell count was normal at 7.6 with 60.7% neutrophils. Hemoglobin was 10.7, down from 12.2 on 05/11/2024. Hemoglobin from May through December 2023 has ranged from 11- 11.5. Platelet count is normal. BMP is remarkable for a BUN of 28 with a creatinine of 0.82 which is within her baseline. Phosphorus was decreased to 2.4. Magnesium is normal at 2.4. LFTs are normal. UA showed 5-10 WBCs and no RBCs. There was no bacteria seen. She has been afebrile. Current med list was reviewed. Antihypertensives include Cozaar 100 mg daily, metoprolol 25 mg twice daily and as needed hydralazine. Had been taking Mirapex for restless leg prior to the SAH. SCDs for DVT prophylaxis. Marisabel tells me she is sleeping well at night. She denies cephalgia, vertigo, chest pain, palpitations, shortness of breath, nausea/vomiting/abdominal pain, dysuria and calf pain. She thinks she may be constipated. Review of the EMR shows that she had a bowel movement on 05/17/2024 and a bowel movement today. She has a Patricio catheter for urine retention. She is on Flomax 0.4 mg daily. She tells me that prior to the recent event she did not feel like she was completely emptying her bladder and she had frequent urination and nocturia. Objective Data Objective Data Vital Signs: Vital Signs Temp Pulse Resp BP Pulse Ox O2 Del Method 97.3 F L 67 18 146/51 H 96 Room Air 05/18/24 06:00 05/18/24 09:21 05/18/24 06:00 05/18/24 09:21 05/18/24 06:00 05/18/24 06:00 Oxygen Delivery Method Room Air Weight: 162 lb 7.691 oz Body Mass Index (BMI) 31.7 Intake & Output: Intake and Output for Last 24 Hours 05/16/24 05/17/24 05/18/24 23:59 23:59 23:59 Intake Total 240 / 240 1600 / 1600 610 / 610 Output Total 925 / 925 1000 / 1000 700 / 700 Balance -685 / -685 600 / 600 -90 / -90 Lab / Micro Data 05/17/24 05:07 05/17/24 05:07 Labs: Laboratory Results - last 24 hr 05/17/24 13:10: Urine Color Yellow, Urine Clarity Sl. Cloudy, Urine pH 6.0, Ur Specific [place] 1.010, Urine Protein 15 H, Urine Glucose (UA) Normal, Urine Ketones Negative, Urine Occult Blood 10 H, Urine Nitrite Negative, Urine Bilirubin Negative, Urine Urobilinogen Normal, Ur Leukocyte Esterase 100 H, Urine RBC 0 SEEN, Urine WBC 5-10 SEEN, Ur Squamous Epith Cells 0 SEEN, Urine Bacteria 0 SEEN, Urine Mucus 0 SEEN Micro: Microbiology 05/17/24 13:10 Urine Catheter - Catheter Urine Culture - Preliminary Gram negative nayely Physical Exam Const alert, oriented x3 and no apparent distress General Appearance: cooperative HEENT HEENT Narrative: Mucous membranes are little dry. The tongue is not coated and there is no evidence of thrush. Neck supple, No nodes and no carotid bruits Resp normal respiratory effort, normal air movement and clear to auscultation bilaterally Resp Narrative: No conversational dyspnea Effort and Inspection: Negative for tachypneic or respiratory distress Cardio regular rate, regular rhythm, no murmurs, no rub and no gallops Cardio Narrative: No ectopy GI normal to inspection, nondistended, normoactive bowel sounds, soft to palpation and non-tender Extremity no calf tenderness Extremity Narrative: Gustavo wrap's are in place. General Extremity: edema Skin Rashes: no rashes Psych cooperative and affect normal Appearance: appropriate Assessment & Plan Assessment/Plan (1) Debility: (2) Subarachnoid hemorrhage: (3) Paroxysmal atrial fibrillation: (4) MCC (current) use of anticoagulants: (5) Restless leg syndrome: (6) Hyperlipidemia: QUALIFIERS: Hyperlipidemia type: unspecified Qualified Code(s): E 78.5 - Hyperlipidemia, unspecified (7) Iron deficiency anemia: QUALIFIERS: Iron deficiency anemia type: unspecified iron deficiency Qualified Code(s): D50.9 - Iron deficiency anemia, unspecified (8) Osteoporosis: QUALIFIERS: Osteoporosis type: age-related Presence of current pathological fracture: without current pathological fracture Qualified Code(s): M81.0 - Age-related osteoporosis without current pathological fracture PLAN: Takes Prolia (9) Secondary pulmonary arterial hypertension: PLAN: Right ventricular systolic pressure was estimated on 40 on her most recent echocardiogram. (10) Essential (primary) hypertension: (11) Hypophosphatemia: (12) Urine retention: PLAN: Plan 1. Continue therapy 2. Check serum iron, TIBC and ferritin and calculate transferrin saturation. 3. Check a Hemoccult stool 4. Overnight trending pulse ox
--- NOTE | 2024-05-18 10:26 | CASEMGMT ---
Social Work SW requested pt have family provide copies of advanced directives to place on file. 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
[2024-05-18 11:43] LABS: Ferritin 113 ng/mL (8-252); Iron 61 ug/dL (50-170); Iron Binding Capacity,Total 546 ug/dL (250-450); PERCENT IRON SATURATION 11.2 % (15.0-55.0)
[2024-05-18] MEDS: 0.9% Saline Lock 10 ML Syringe IV ×2 (15:14→16:28)
[2024-05-18] MEDS: Na Biphos/Potassium Phosphate PACKET 1 PACKET PO ×2 (15:15→21:04)
[2024-05-18] MEDS: Sodium Ferric Gluconat/Sucrose 125 MG in 0.9% Normal Saline (100mL Bag) 100 ML 110 MG IV (15:15)
--- NOTE | 2024-05-18 16:19 | CHAPLAIN ---
Type of Pastoral Visit _x__ Initial Visit ___ Follow-up Visit ___ On-call Visit ___ General Patient Visit ___ Spiritual Assessment ___ Family Conference ___ Bereavement ___ Rapid Response ___ Code Blue ___ Other (describe below) Pastoral Care Referral From _x__ Patient ___ Family ___ Nurse ___ Physician ___ Bpo Specialist ___ Retail Representative ___ Other (describe below) Sacrament/Intervention _x__ Active listening ___ Anointing ___ Buddhism ___ Bereavement ___ Communion _x__ Beth exploration ___ _x__ Life review _x__ Prayer ___ Reconciliation ___ Sacrament of Sick _x__ Supportive presence ___ Wedding ___ Other (describe below) Pastoral Comments patient is asked about her situation and how she is feeling; pt says that it has been a rough day as she gets more therapy, has not slept well, and then reveals more of the family issues about the recent of her son-in-law, illness of a young great granddaughter, and her own illness; pt is a person of beth but has become disconnected to her beth community in recent years; focused on what are the good things and the blessings, with affirmation of normalized feelings due to her experience and sorrow; pt welcomes presence and prayer
[2024-05-18] MEDS: Pramipexole Di-HCl 0.25 MG Tablet PO ×2 (16:28→21:02)
[2024-05-18] MEDS: Tamsulosin HCl 0.4 MG Capsule PO (16:28)
[2024-05-18 18:00] VITALS: BP 126/63; PULSE 77; RESP 17; TEMP 36.6; O2SAT 97
[2024-05-18 20:34] VITALS: PULSE 91; O2SAT 95
[2024-05-18 21:02] VITALS: PULSE 82
[2024-05-18] MEDS: Magnesium Chloride 64 MG Delay Rel.Tablet 128 MG PO (21:04)
[2024-05-18] MEDS: MELATONIN 3 MG TABLET PO (21:24)
[2024-05-18] MEDS: clonazePAM 0.5 MG Tablet PO (21:24)
--- NOTE | 2024-05-18 21:42 | NURSING ---
CPAP applied. Pt educated to notify nurse if removed.
--- NOTE | 2024-05-18 22:01 | CPS ---
[2157] Pt. on home unit at this time (03/18). Pt.'s SpO2 = 95, HR = 79 with NO oxygen in-line.
--- NOTE | 2024-05-19 00:03 | NURSING ---
pt removed CPAP at 2330. RT notified. Prior to removal of mask pt yelling for help. Pt was reminded that it is more effective to use call light when in need of assistance. Pt was then repositioned in bed for comfort. Pt then requested to move from bed to chair. Pt was encouraged to try to stay in bed for purposes of trending pulse ox study and need to be rested for therapy the next day. Pt states you are not being cooperative to nurse. This nurse and LOAN DOCUMENTS CLOSER assisted pt to chair. Pt provided with a hot cup of decaf tea, call light within reach. Pt educated to use call light when finished with her cup of tea to reapply CPAP. Pt remains on cont O2 monitor.
--- NOTE | 2024-05-19 01:09 | NURSING ---
Patient assisted to bathroom from chair, after patient finished in the bathroom she was ready to get into bed again. Patient repositioned in bed, continuous O2 monitor and CPAP placed back on the patient upon returning to bed at 0100. Call light within reach, patient denies additional needs.
[2024-05-19] MEDS: Na Biphos/Potassium Phosphate PACKET 1 PACKET PO ×3 (05:00→21:02)
[2024-05-19 05:03] VITALS: BP 143/57; PULSE 71; RESP 18; TEMP 36.4; O2SAT 97
[2024-05-19 05:05] VITALS: BMI 31.6
--- NOTE | 2024-05-19 06:51 | NURSING ---
Pt removed CPAP for the day at 0400. RT notified.
[2024-05-19 07:33] VITALS: BP 143/57; PULSE 71
[2024-05-19] MEDS: Metoprolol Tartrate 25 MG Tablet PO ×2 (07:33→21:02)
[2024-05-19] MEDS: Aspirin 81 MG TAB.CHEW PO (07:34)
[2024-05-19] MEDS: Losartan Potassium 100 MG Tablet PO (07:34)
[2024-05-19] MEDS: Lidocaine 5% Patch 1 PATCH TOPICAL (07:34)
[2024-05-19 08:10] VITALS: O2SAT 94
--- NOTE | 2024-05-19 08:48 | PN_ITS ---
Subjective Subjective Day #1/5 of Levaquin for E. coli cystitis Afebrile VSS -diastolics are always within goal. Systolic is usually ranging from 139- 147 over the past 48 hours. Heart rate is within normal limits. Maintaining appropriate oxygen saturation on RA Oral intake - FOOD good FLUIDS good Discussed with nursing - no problems that need addressed Reviewed the THERAPY The catheterized urine specimen grew greater than 100,000 colonies of E. coli which is pansensitive except for intermediate sensitivity to ampicillin. Davis tells me that she slept a little better last night. Still feeling anxious at night. Denies lightheadedness, shortness of breath, chest pain, nausea/vomiting/abdominal pain, suprapubic pain and calf tenderness. At this moment she denies restless leg. Objective Data Objective Data Vital Signs: Vital Signs Temp Pulse Resp BP Pulse Ox O2 Del Method O2 Flow Rate 97.6 F L 71 18 143/57 H 97 Room Air 0 05/19/24 05:03 05/19/24 07:33 05/19/24 05:03 05/19/24 07:33 05/19/24 05:03 05/19/24 05:03 05/18/24 20:34 FiO2 21 05/18/24 20:34 Oxygen Flow Rate (L/min) 0 Oxygen Delivery Method Room Air Weight: 162 lb 3 oz Body Mass Index (BMI) 31.6 Intake & Output: Intake and Output for Last 24 Hours 05/17/24 05/18/24 05/19/24 23:59 23:59 23:59 Intake Total 1600 / 1600 1460 / 2060 840 / 840 Output Total 1000 / 1000 950 / 1500 550 / 550 Balance 600 / 600 510 / 560 290 / 290 Lab / Micro Data 05/17/24 05:07 05/17/24 05:07 Labs: Laboratory Results - last 24 hr 05/18/24 11:01: Iron 61, TIBC 546 H, Iron Saturation 11.2 L, Ferritin 113 Micro: Microbiology 05/17/24 13:10 Urine Catheter - Catheter Urine Culture - Final Escherichia coli 05/19/24 01:00 Stool Stool Occult Blood (NAVNEET) - Final Physical Exam Const alert, oriented x3 and no apparent distress Constitutional Narrative: She is [place] and she is not hearing what I am saying so she answers questions that I have not asked her and it seems as though she is not able to focus......D/W ST......did pretty well on the BCAT. Does not have hearing aids. General Appearance: cooperative HEENT Mouth: dry mucous membranes Resp normal respiratory effort, normal air movement and clear to auscultation bilaterally Resp Narrative: No conversational dyspnea Effort and Inspection: Negative for tachypneic or respiratory distress Cardio regular rate, regular rhythm, no murmurs, no rub and no gallops Cardio Narrative: No ectopy GI normal to inspection, nondistended, normoactive bowel sounds, soft to palpation and non-tender Extremity no calf tenderness Extremity Narrative: Gustavo wrap's are in place. 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: (5) Restless leg syndrome: (6) Hyperlipidemia: QUALIFIERS: Hyperlipidemia type: unspecified Qualified Code(s): E 78.5 - Hyperlipidemia, unspecified (7) Iron deficiency anemia: QUALIFIERS: Iron deficiency anemia type: unspecified iron deficiency Qualified Code(s): D50.9 - Iron deficiency anemia, unspecified (8) Osteoporosis: QUALIFIERS: Osteoporosis type: age-related Presence of current pathological fracture: without current pathological fracture Qualified Code(s): M81.0 - Age-related osteoporosis without current pathological fracture (9) Secondary pulmonary arterial hypertension: (10) Essential (primary) hypertension: (11) Hypophosphatemia: (12) Urine retention: (13) Catheter-associated urinary tract infection: QUALIFIERS: Indwelling urinary catheter type: unspecified E ncounter type: subsequent encounter Qualified Code(s): T83.511D - Infection and inflammatory reaction due to indwelling urethral catheter, subsequent encounter; N39.0 - Urinary tract infection, site not specified PLAN: Present at admission to rehab PLAN: Plan 1. Continue therapy 2. She tolerated the test dose of iron sucrose yesterday so we will order 200 mg of iron sucrose intravenously daily x 3 doses. She has been taking oral iron as an outpatient but obviously is not absorbing as she is still iron deficient. 3. No changes to the Mirapex dosing at this time 4. Continue Klonopin 0.5 mg at bedtime for anxiety and restless leg. 5. Start Levaquin 250 mg daily x 5 doses. Pt tells me that she is allergic to Levaquin and she thinks it caused tingling in her feet. this is not an allergic reaction. 6. Voiding trial at the conclusion of the Levaquin. Charges/Coding Visit Charges Inpatient E&M: 37398 Subs Hosp L1
[2024-05-19] MEDS: levoFLOXacin 250 MG Tablet PO (09:34)
[2024-05-19] MEDS: Sodium Ferric Gluconat 250 MG in 0.9% Normal Saline 250 ML 135 MG IV (14:06)
[2024-05-19] MEDS: 0.9% Saline Lock 10 ML Syringe IV ×2 (14:06→16:37)
[2024-05-19] MEDS: Tamsulosin HCl 0.4 MG Capsule PO (16:35)
[2024-05-19] MEDS: Pramipexole Di-HCl 0.25 MG Tablet PO ×2 (16:35→21:00)
[2024-05-19 17:33] VITALS: BP 155/69; PULSE 81; RESP 17; TEMP 36.3; O2SAT 97
[2024-05-19] MEDS: clonazePAM 0.5 MG Tablet PO (21:00)
[2024-05-19 21:02] VITALS: BP 155/69; PULSE 81
[2024-05-19] MEDS: Magnesium Chloride 64 MG Delay Rel.Tablet 128 MG PO (21:02)
[2024-05-19] MEDS: Senna/Docusate Sodium 1 Tablet 2 TABLET PO (21:03)
[2024-05-20 05:06] VITALS: BP 149/62; PULSE 79; RESP 16; TEMP 36.8; O2SAT 95
[2024-05-20] MEDS: 0.9% Saline Lock 10 ML Syringe IV ×2 (05:49→11:04)
[2024-05-20] MEDS: Na Biphos/Potassium Phosphate PACKET 1 PACKET PO ×3 (05:49→21:59)
[2024-05-20] MEDS: levoFLOXacin 250 MG Tablet PO (05:49)
[2024-05-20] MEDS: Aspirin 81 MG TAB.CHEW PO (09:19)
[2024-05-20] MEDS: Senna/Docusate Sodium 1 Tablet 2 TABLET PO ×2 (09:19→22:03)
[2024-05-20] MEDS: Lidocaine 5% Patch 1 PATCH TOPICAL (09:19)
[2024-05-20 09:21] VITALS: BP 129/44; PULSE 90
[2024-05-20] MEDS: Losartan Potassium 100 MG Tablet PO (09:21)
[2024-05-20] MEDS: Metoprolol Tartrate 25 MG Tablet PO ×2 (09:21→22:03)
--- NOTE | 2024-05-20 10:00 | PCM.PROGNOTE ---
Subjective Subjective Day 06/[facility] Marisabel was seen on team rounds today. Her daughter was present in the room. All questions were answered to their satisfaction. Afebrile VSS - Maintaining appropriate oxygen saturation on RA Oral intake - FOOD good FLUIDS good Discussed with nursing - no problems that need addressed Reviewed the THERAPY notes Medication list reviewed. She is c/o pain in the R anterior thigh that goes to the knee and stops. Denies pain in the left thigh. Denies hamstring pain. She had no restless leg during the day yesterday. She was tired after therapy and was able to sleep a few hours. She tells me that the pain/RLS started in the late evening. States she did not sleep well last night. Nursing tells me that her son-in-law about 1 week ago......maybe contributing to anxiety at Night. She c/o pain all over. History is very hard to obtain. Not having RLS sx at this time. Denies cephalgia and lightheadedness. No CP and no SOB. Objective Data Objective Data Vital Signs: Vital Signs Temp Pulse Resp BP Pulse Ox O2 Del Method O2 Flow Rate 98.2 F 90 16 129/44 H 95 Room Air 0 05/20/24 05:06 05/20/24 09:21 05/20/24 05:06 05/20/24 09:21 05/20/24 05:06 05/20/24 05:06 05/18/24 20:34 FiO2 21 05/18/24 20:34 Oxygen Flow Rate (L/min) 0 Oxygen Delivery Method Room Air Weight: 162 lb 3 oz Body Mass Index (BMI) 31.6 Intake & Output: Intake and Output for Last 24 Hours 05/18/24 05/19/24 05/20/24 23:59 23:59 23:59 Intake Total 1460 / 2060 1830 / 2200 680 / 680 Output Total 950 / 1500 1650 / 2000 600 / 600 Balance 510 / 560 180 / 200 80 / 80 Lab / Micro Data 05/17/24 05:07 05/17/24 05:07 Micro: Microbiology 05/17/24 13:10 Urine Catheter - Catheter Urine Culture - Final Escherichia coli 05/19/24 01:00 Stool Stool Occult Blood (NAVNEET) - Final Physical Exam Const alert, oriented x3 and no apparent distress General Appearance: cooperative Resp normal respiratory effort and clear to auscultation bilaterally Resp Narrative: No conversational dyspnea Cardio regular rate, regular rhythm, no murmurs, no rub and no gallops Cardio Narrative: No ectopy GI normal to inspection, nondistended, normoactive bowel sounds, soft to palpation and non-tender Extremity no calf tenderness Extremity Narrative: Gustavo wrap's are in place. 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: (5) Restless leg syndrome: (6) Hyperlipidemia: QUALIFIERS: Hyperlipidemia type: unspecified Qualified Code(s): E78.5 - Hyperlipidemia, unspecified (7) Iron deficiency anemia: QUALIFIERS: Iron deficiency anemia type: unspecified iron deficiency Qualified Code(s): D50.9 - Iron deficiency anemia, unspecified (8) Osteoporosis: QUALIFIERS: Osteoporosis type: age-related Presence of current pathological fracture: without current pathological fracture Qualified Code(s): M81.0 - Age-related osteoporosis without current pathological fracture (9) Secondary pulmonary arterial hypertension: (10) Essential (primary) hypertension: (11) Hypophosphatemia: (12) Urine retention: (13) Catheter-associated urinary tract infection: QUALIFIERS: Encounter type: subsequent encounter Indwelling urinary catheter type: unspecified Qualified Code(s): T83.511D - Infection and inflammatory reaction due to indwelling urethral catheter, subsequent encounter; N39.0 - Urinary tract infection, site not specified PLAN: Plan 1. Continue therapy 2. No RLS sx during the day when she is active with therapy. Sx worse late in the afternoon and at night. Not sure if the sx at night are all due to RLS or if she is having insomnia due to anxiety.....more likely than not it is multifactorial. I also think that some of the pain in the legs may be radicular. She has had vertebroplasty of L2 and L3 in the past.......fractures were NOT related to trauma/fall. 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 She had mild right neuroforaminal stenosis at L3-4 and a mild degree of central canal stenosis at L4-5. Mirapex does not seem to be helping much. I am going to start Gabapentin 100 mg at 4PM and 200 mg at 9 PM. DC Mirapex. Continue the Klonopin 0.5 mg at night. 3. Add acetaminophen 1 g p.o. every 8 hours to the current drug regimen Davis list Gabapentin as an allergy but, she tells me that it made her sleepy........was taking 300 mg TID she says. Charges/Coding Visit Charges Inpatient E&M: 11735 Subs Hosp L2
[2024-05-20] MEDS: Sodium Ferric Gluconat 250 MG in 0.9% Normal Saline 250 ML 135 MG IV (11:04)
--- NOTE | 2024-05-20 12:46 | CASEMGMT ---
Social Work IDT met with patient and dtr for Team meeting. Discussed patient's progress in PT/OT/ST/SN. Educated to Medicare approval of 14 days with DC 05/30. Discussed concerns with pt returning home alone, with limited support. Pt needs [employer] for tasks, mild high level cognitive impairment, though some deficits may be attributed to hearing loss. Pt also has andrés fraser, currently. Broached topic of possibly needing SNF stay to regain independence to return home. Pt inquired about TCU, as pt was on that unit prior, and if insurance covers SNF stay. SW educated to Medicare benefit for SNF stay. SW will follow with pt's progress and assist with DC planning closer to DC. SW provided brochure and educated to Stroke Support Group. Will ReTeam next week. RENO SnellW
[2024-05-20] MEDS: Acetaminophen 500 MG Tablet 1000 MG PO ×2 (15:24→22:00)
[2024-05-20] MEDS: Gabapentin 100 MG Capsule PO (15:24)
[2024-05-20 17:41] VITALS: BP 138/44; PULSE 80; RESP 17; TEMP 36.9; O2SAT 94
[2024-05-20] MEDS: Tamsulosin HCl 0.4 MG Capsule PO (17:56)
--- NOTE | 2024-05-20 21:30 | NURSING ---
per pt request, this nurse assisted patient in walking one lap around rehab floor, pt tolerated well
[2024-05-20] MEDS: Gabapentin 100 MG Capsule 200 MG PO (21:59)
[2024-05-20] MEDS: clonazePAM 0.5 MG Tablet PO (21:59)
[2024-05-20] MEDS: Magnesium Chloride 64 MG Delay Rel.Tablet 128 MG PO (22:00)
[2024-05-20 22:03] VITALS: BP 149/53; PULSE 99
[2024-05-21] VITALS (7 sets, daily range): BP systolic 150–185; BP diastolic 52–70; PULSE 87–119; RESP 18–20; TEMP 36.6; O2SAT 95–99
[2024-05-21] MEDS: Na Biphos/Potassium Phosphate PACKET 1 PACKET PO (06:18)
[2024-05-21] MEDS: Acetaminophen 500 MG Tablet 1000 MG PO ×3 (06:18→21:48)
[2024-05-21] MEDS: levoFLOXacin 250 MG Tablet PO (06:18)
[2024-05-21] MEDS: Lidocaine 5% Patch 1 PATCH TOPICAL (07:50)
[2024-05-21] MEDS: Losartan Potassium 100 MG Tablet PO (07:50)
[2024-05-21] MEDS: Aspirin 81 MG TAB.CHEW PO (07:50)
[2024-05-21] MEDS: Senna/Docusate Sodium 1 Tablet 2 TABLET PO ×2 (08:01→21:48)
[2024-05-21] MEDS: Metoprolol Tartrate 25 MG Tablet PO ×2 (10:09→21:47)
[2024-05-21] MEDS: 0.9% Saline Lock 10 ML Syringe IV ×3 (10:10→21:50)
[2024-05-21] MEDS: Sodium Ferric Gluconat 250 MG in 0.9% Normal Saline 250 ML 135 MG IV (10:23)
[2024-05-21] MEDS: Gabapentin 100 MG Capsule PO (15:14)
--- NOTE | 2024-05-21 15:47 | PN_ITS ---
Subjective Subjective Day 3 of Levaquin for E. coli cystitis Afebrile VSS -systolic blood pressures consistently mildly elevated. Maintaining appropriate oxygen saturation on RA Oral intake - FOOD good FLUIDS good Discussed with nursing - no problems that need addressed Reviewed the THERAPY notes Medication list reviewed. Tells me that she was good until she went to go to bed at about 10 PM last night and then she had restless leg........involves the UE's as well as the lower. This is actually an improvement since she had been starting with sx at about 4 PM before. When I see her during the day she has no RLS sx. Objective Data Objective Data Vital Signs: Vital Signs Temp Pulse Resp BP Pulse Ox O2 Del Method O2 Flow Rate 98 F 87 18 150/70 H 99 Room Air 2 05/21/24 06:37 05/21/24 10:09 05/21/24 06:37 05/21/24 10:09 05/21/24 06:37 05/21/24 08:43 05/21/24 06:37 FiO2 21 05/18/24 20:34 Oxygen Flow Rate (L/min) 2 Oxygen Delivery Method Room Air Weight: 162 lb 3 oz Body Mass Index (BMI) 31.6 Intake & Output: Intake and Output for Last 24 Hours 05/19/24 05/20/24 05/21/24 23:59 23:59 23:59 Intake Total 1830 / 2200 1430 / 1430 1170 / 1170 Output Total 1650 / 2000 1200 / 1500 1600 / 1600 Balance 180 / 200 230 / -70 -430 / -430 Lab / Micro Data 05/17/24 05:07 05/17/24 05:07 Micro: Microbiology 05/17/24 13:10 Urine Catheter - Catheter Urine Culture - Final Escherichia coli 05/19/24 01:00 Stool Stool Occult Blood (NAVNEET) - Final Physical Exam Const alert, oriented x3 and no apparent distress General Appearance: cooperative Cardio regular rate and regular rhythm Cardio Narrative: No ectopy GI normal to inspection, nondistended, normoactive bowel sounds, soft to palpation and non-tender Skin Rashes: no rashes Assessment & Plan Assessment/Plan (1) Debility: (2) Subarachnoid hemorrhage: (3) Paroxysmal atrial fibrillation: (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: (5) Restless leg syndrome: (6) Hyperlipidemia: QUALIFIERS: Hyperlipidemia type: unspecified Qualified Code(s): E 78.5 - Hyperlipidemia, unspecified (7) Iron deficiency anemia: QUALIFIERS: Iron deficiency anemia type: unspecified iron deficiency Qualified Code(s): D50.9 - Iron deficiency anemia, unspecified (8) Osteoporosis: QUALIFIERS: Osteoporosis type: age-related Presence of current pathological fracture: without current pathological fracture Qualified Code(s): M81.0 - Age-related osteoporosis without current pathological fracture (9) Secondary pulmonary arterial hypertension: (10) Essential (primary) hypertension: (11) Hypophosphatemia: (12) Urine retention: (13) Catheter-associated urinary tract infection: QUALIFIERS: Indwelling urinary catheter type: unspecified E ncounter type: subsequent encounter Qualified Code(s): T83.511D - Infection and inflammatory reaction due to indwelling urethral catheter, subsequent encounter; N39.0 - Urinary tract infection, site not specified PLAN: Plan 1. Continue therapy 2. Increase the Klonopin to 1 mg at night 3. Continue the gabapentin with no changes today 5. Overnight trending pulse ox was reviewed and she has no significant 4. Has received 700 mg of intravenous iron for iron deficiency. 5. The overnight trending pulse ox was reviewed and there are no desaturations. 6. Add Norvasc 2.5 mg daily to the current drug regimen. Because of the cerebral amyloid angiopathy would prefer to keep the systolic less than 140 consistently. 7. Voiding trial on Friday. Charges/Coding Visit Charges Inpatient E&M: 28060 [facility] Hosp L1
[2024-05-21] MEDS: hydrALAZINE 25 MG Tablet PO (16:08)
[2024-05-21] MEDS: Tamsulosin HCl 0.4 MG Capsule PO (17:13)
[2024-05-21] MEDS: Magnesium Chloride 64 MG Delay Rel.Tablet 128 MG PO (21:48)
[2024-05-21] MEDS: clonazePAM 1 MG Tablet PO (21:48)
[2024-05-21] MEDS: Gabapentin 100 MG Capsule 200 MG PO (21:48)
[2024-05-22] VITALS (7 sets, daily range): BP systolic 142–197; BP diastolic 45–68; PULSE 89–110; RESP 17–18; TEMP 36.6–37.1; O2SAT 95–96
[2024-05-22] MEDS: MELATONIN 3 MG TABLET PO ×2 (00:21→22:40)
[2024-05-22] MEDS: levoFLOXacin 250 MG Tablet PO (06:01)
[2024-05-22] MEDS: Acetaminophen 500 MG Tablet 1000 MG PO ×3 (06:01→21:38)
[2024-05-22] MEDS: hydrALAZINE 25 MG Tablet PO ×2 (06:26→17:19)
[2024-05-22] MEDS: Senna/Docusate Sodium 1 Tablet 2 TABLET PO ×2 (08:16→21:38)
[2024-05-22] MEDS: Aspirin 81 MG TAB.CHEW PO (08:16)
[2024-05-22] MEDS: amLODIPine 2.5 MG Tablet PO (08:16)
[2024-05-22] MEDS: Lidocaine 5% Patch 1 PATCH TOPICAL (08:17)
[2024-05-22] MEDS: Metoprolol Tartrate 25 MG Tablet PO ×2 (08:17→21:37)
[2024-05-22] MEDS: Losartan Potassium 100 MG Tablet PO (08:17)
[2024-05-22] MEDS: Tamsulosin HCl 0.4 MG Capsule PO (17:19)
[2024-05-22] MEDS: Gabapentin 300 MG Capsule PO ×2 (17:19→21:37)
[2024-05-22] MEDS: clonazePAM 1 MG Tablet PO (21:36)
[2024-05-22] MEDS: Magnesium Chloride 64 MG Delay Rel.Tablet 128 MG PO (21:37)
[2024-05-22] MEDS: 0.9% Saline Lock 10 ML Syringe IV (21:39)
[2024-05-23] MEDS: levoFLOXacin 250 MG Tablet PO (04:41)
[2024-05-23] MEDS: Acetaminophen 500 MG Tablet 1000 MG PO ×3 (04:41→20:20)
[2024-05-23 06:00] VITALS: BP 134/52; PULSE 74; RESP 18; TEMP 36.5; O2SAT 100
[2024-05-23 08:17] VITALS: O2SAT 94
[2024-05-23] MEDS: Aspirin 81 MG TAB.CHEW PO (08:26)
[2024-05-23] MEDS: Lidocaine 5% Patch 1 PATCH TOPICAL (09:53)
[2024-05-23 09:54] VITALS: PULSE 74
[2024-05-23] MEDS: Metoprolol Tartrate 25 MG Tablet PO ×2 (09:54→20:18)
[2024-05-23] MEDS: amLODIPine 2.5 MG Tablet PO (09:54)
[2024-05-23] MEDS: Senna/Docusate Sodium 1 Tablet 2 TABLET PO ×2 (09:54→20:20)
[2024-05-23] MEDS: Losartan Potassium 100 MG Tablet PO (09:54)
[2024-05-23] MEDS: Tamsulosin HCl 0.4 MG Capsule PO (16:47)
[2024-05-23] MEDS: Gabapentin 300 MG Capsule PO ×2 (16:47→20:18)
[2024-05-23 18:00] VITALS: BP 148/43; PULSE 87; RESP 16; TEMP 36.2; O2SAT 97
[2024-05-23 20:18] VITALS: BP 150/57; PULSE 72
[2024-05-23] MEDS: clonazePAM 1 MG Tablet PO (20:18)
[2024-05-23] MEDS: Magnesium Chloride 64 MG Delay Rel.Tablet 128 MG PO (20:19)
[2024-05-23] MEDS: 0.9% Saline Lock 10 ML Syringe IV (20:22)
[2024-05-24 03:00] VITALS: BP 148/55; PULSE 93; RESP 16; TEMP 36.5; O2SAT 96
--- NOTE | 2024-05-24 04:22 | NURSING ---
0300 Patient was sleeping soundly in her recliner. Calls out from room. Staff enter and patient states that she felt like something had just taken over her body. No changes noted in patient condition, vitals stable. Patient voiced I think it must have been a dream. I thought someone was taking me from here and placing me somewhere else.
[2024-05-24] MEDS: Acetaminophen 500 MG Tablet 1000 MG PO ×3 (05:13→21:02)
[2024-05-24] MEDS: Magnesium Hydroxide 30 ML UDC PO (05:16)
[2024-05-24 05:19] VITALS: BP 121/45; PULSE 89; RESP 15; TEMP 36.6; O2SAT 98
--- NOTE | 2024-05-24 07:44 | NURSING ---
Patient rested in bed until around 1am. Patient called out complaining of her legs bothering her. Requested to go for a walk in the halls. Same done with assist from [employer]. Tolerated well. Returns to her room and assisted into recliner chair. Glass of Gingerale provided per patient's request. Patient snacking on chocolate candies throughout morning. Often noted sleeping in recliner chair then will have periods of wakefulness. Patient says she feels groggy but isn't able to maintain a restful sleep.
[2024-05-24] MEDS: Aspirin 81 MG TAB.CHEW PO (07:46)
[2024-05-24 07:47] VITALS: PULSE 89
[2024-05-24] MEDS: Losartan Potassium 100 MG Tablet PO (07:47)
[2024-05-24] MEDS: Senna/Docusate Sodium 1 Tablet 2 TABLET PO ×2 (07:47→21:01)
[2024-05-24] MEDS: Lidocaine 5% Patch 1 PATCH TOPICAL (07:47)
[2024-05-24] MEDS: amLODIPine 2.5 MG Tablet PO (07:47)
[2024-05-24] MEDS: Metoprolol Tartrate 25 MG Tablet PO ×2 (07:47→21:00)
--- NOTE | 2024-05-24 09:08 | PCM.PROGNOTE ---
Subjective Subjective Afebrile VSS - Maintaining appropriate oxygen saturation on RA Oral intake - FOOD good FLUIDS fair Discussed with nursing - nursing reports she slept better last night. Reviewed the THERAPY notes Medication list reviewed. Currently taking 300 mg of gabapentin at 6 PM and 9 PM and Klonopin 1 mg at 9 PM. Refused to have the VIKASH wraps put on this morning. Sitting in the room with legs dependent. Not wearing CPAP at night. The limb movements start at about 19:30 at night. No problems during the day. Able to do her therapy. she sleeps off and on throughout the day when not doing therapy. when she is not doing therapy and I walk past her room she is usually sleeping in the recliner. She denies this. Fixated on ropinirole and tells me that she was fine on this medication at home. When I asked her to have her daughter bring this in so we could try it because it is not on formulary at [facility] she said she would rather try the gabapentin a few more days. Objective Data Objective Data Vital Signs: Vital Signs Temp Pulse Resp BP Pulse Ox O2 Del Method O2 Flow Rate 97.9 F 89 15 121/45 H 98 Nasal Cannula 2 05/24/24 05:19 05/24/24 07:47 05/24/24 05:19 05/24/24 05:19 05/24/24 05:19 05/24/24 05:19 05/24/24 05:19 FiO2 21 05/18/24 20:34 Oxygen Flow Rate (L/min) 2 Oxygen Delivery Method Nasal Cannula Weight: 162 lb 3 oz Body Mass Index (BMI) 31.6 Intake & Output: Intake and Output for Last 24 Hours 05/22/24 05/23/24 05/24/24 23:59 23:59 23:59 Intake Total 2750 / 2750 1000 / 1000 780 / 780 Output Total 2350 / 2350 2200 / 2200 350 / 350 Balance 400 / 400 -1200 / -1200 430 / 430 Lab / Micro Data 05/24/24 09:27 05/24/24 09:27 Micro: Microbiology 05/17/24 13:10 Urine Catheter - Catheter Urine Culture - Final Escherichia coli 05/19/24 01:00 Stool Stool Occult Blood (NAVNEET) - Final Physical Exam Const alert, oriented x3 and no apparent distress Constitutional Narrative: Looks a little drowsy. Tells me that she slept for 3-4 hours last night and then awoke around 2 AM with a nightmare and was unable to go back to sleep. The night before she told me that she slept much better. Has not seen a neurologist for restless leg/sleep disorder. Sees Dr. louis for NEL. HEENT Mouth: dry mucous membranes Resp normal respiratory effort Resp Narrative: Initially had coarse crackles in the bases but after several very deep breaths make crackles completely resolved. No wheezing. No conversational dyspnea Effort and Inspection: Negative for tachypneic Cardio no gallops Cardio Narrative: Irregular irregular rhythm today with controlled ventricular response. Heart rate is ranging from 72-89 since last night. GI normal to inspection, nondistended, normoactive bowel sounds and soft to palpation Extremity Extremity Narrative: Refuses compression wraps and does not like to elevate her legs so she sits with them dependent most of the day. 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: (5) Restless leg syndrome: (6) Hyperlipidemia: QUALIFIERS: Hyperlipidemia type: unspecified Qualified Code(s): E78.5 - Hyperlipidemia, unspecified (7) Iron deficiency anemia: QUALIFIERS: Iron deficiency anemia type: unspecified iron deficiency Qualified Code(s): D50.9 - Iron deficiency anemia, unspecified (8) Osteoporosis: QUALIFIERS: Osteoporosis type: age-related Presence of current pathological fracture: without current pathological fracture Qualified Code(s): M81.0 - Age-related osteoporosis without current pathological fracture (9) Secondary pulmonary arterial hypertension: (10) Essential (primary) hypertension: (11) Hypophosphatemia: PLAN: More likely than not related to increased PTH and patient with known osteoporosis on no treatment. (12) Urine retention: (13) Catheter-associated urinary tract infection: QUALIFIERS: Indwelling urinary catheter type: unspecified Encounter type: subsequent encounter Qualified Code(s): T83.511D - Infection and inflammatory reaction due to indwelling urethral catheter, subsequent encounter; N39.0 - Urinary tract infection, site not specified PLAN: Plan 1. Continue therapy 2. CBC, BMP, mag and Phos today. 3. Voiding trial today 4. Will continue Gabapentin and Klonopin. Try Provigil 100 mg in the AM to see if we can wake during the day so that she has a chance of sleeping at night. 5. An appointment has been scheduled with her with Dr. Bipin Quesada to follow-up for obstructive sleep apnea/suspected additional sleep disorders and treatment. 6. Encouraged her to wear the CPAP at night as ordered. 7. BUN/creatinine ratio is elevated and mucous membranes are dry. I explained the preferred treatment for peripheral edema associated with venous insufficiency/obesity is elevation and compression. 8. The persistent mildly decreased phosphate is likely secondary to the elevated PTH. It is only mildly decreased and she is asymptomatic so no reason to treat at this time. Charges/Coding Visit Charges Inpatient E&M: 01885 Subs Hosp L1
[2024-05-24 09:49] LABS: Hematocrit 33.8 % (37-47); Hemoglobin 10.6 g/dL (12.0-15.0); Mean Corp Hgb Conc 31.4 g/dL (32-36); Mean Corpuscular Volume 92.3 fL (81-99); Mean Platelet Vol. 9.4 fl (6.2-12.0); Platelet Count 433 K/mm3 (150-450); RBC Distribution Width CV 15.7 % (11.6-14.6); RBC Distribution Width SD 52.7 fl (35.1-43.9); Red Blood Count 3.66 M/mm3 (4.2-5.4); White Blood Count 8.3 K/mm3 (4.4-11.0)
[2024-05-24 10:14] LABS: Anion Gap 5 (5-15); BUN 25 mg/dL (7-18); BUN/Creat Ratio 26.9 RATIO (10-20); Calcium,Total 8.7 mg/dL (8.5-10.1); Chloride 110 mmol/L (98-107); Creatinine, Serum 0.93 mg/dL (0.55-1.02); EST Glomerular Filtration Rate 61 mL/min (>60); Est Glom Filt Rate - Afr Amer 73 mL/min (>60); Estimated Creatinine Clearance 37.45 ml/min; Glucose 93 mg/dL (74-106); Magnesium 2.5 mg/dL (1.6-2.6); Potassium 4.7 mmol/L (3.5-5.1); Sodium Level 138 mmol/L (136-145)
[2024-05-24 10:27] LABS: Phosphorus 2.1 mg/dL (2.5-4.9)
--- NOTE | 2024-05-24 10:32 | CASEMGMT ---
Social Work Pt and family choosing TCU, [place] [facility] [address] for continuation of therapy after Rehab stay is complete. Referrals made to Angeli in TCU and to Carlos Mccain and Eduarda via [facility]. MINNIE will follow for dc planning. LUIS Mueller
--- NOTE | 2024-05-24 11:56 | NURSING ---
Oleksandr with Dr Holland's office asking if he treats RLS and Periodic limb movement. Waiting for return call.
[2024-05-24] MEDS: 0.9% Saline Lock 10 ML Syringe IV ×2 (14:02→20:59)
[2024-05-24 17:05] VITALS: BP 172/46; PULSE 94
[2024-05-24] MEDS: hydrALAZINE 25 MG Tablet PO (17:05)
[2024-05-24] MEDS: Tamsulosin HCl 0.4 MG Capsule PO (17:05)
[2024-05-24] MEDS: Gabapentin 300 MG Capsule PO ×2 (17:05→21:00)
[2024-05-24 18:00] VITALS: BP 167/40; PULSE 113; RESP 16; TEMP 36.9; O2SAT 97
[2024-05-24 21:00] VITALS: BP 150/52; PULSE 120
[2024-05-24] MEDS: MELATONIN 3 MG TABLET PO (21:00)
[2024-05-24] MEDS: Magnesium Chloride 64 MG Delay Rel.Tablet 128 MG PO (21:00)
[2024-05-24] MEDS: clonazePAM 1 MG Tablet PO (21:01)
--- NOTE | 2024-05-25 03:34 | NURSING ---
Reports dreaming of people. No distress observed or reported at this time. Prefers to rest in recliner, declines assist to bed. BLE elevated. Declines CPAP, O2 on via NC at 2L. Resps even and unlabored. Call light in reach. Written communication left for Dr. Rousseau on overnight update sheet for review in AM.
[2024-05-25 06:00] VITALS: BP 178/54; PULSE 90; RESP 16; TEMP 36.5; O2SAT 90
[2024-05-25] MEDS: Acetaminophen 500 MG Tablet 1000 MG PO ×3 (06:32→22:08)
[2024-05-25] MEDS: Modafinil 200 MG Tablet 100 MG PO (07:43)
--- NOTE | 2024-05-25 07:46 | NURSING ---
PRN straight cath as ordered per policy with patient consent, aseptic technique maintained, 600cc clear yellow urine return, patient tolerated well. Assisted to chair x2 staff assist per preference for breakfast. Personal alarm in place. Call light in reach. No distress observed or reported.
[2024-05-25] MEDS: amLODIPine 2.5 MG Tablet PO (08:06)
[2024-05-25] MEDS: Aspirin 81 MG TAB.CHEW PO (08:07)
[2024-05-25] MEDS: Senna/Docusate Sodium 1 Tablet 2 TABLET PO ×2 (08:07→22:05)
[2024-05-25] MEDS: Losartan Potassium 100 MG Tablet PO (08:07)
[2024-05-25] MEDS: Lidocaine 5% Patch 1 PATCH TOPICAL (08:08)
[2024-05-25 08:13] VITALS: BP 144/46; PULSE 95
[2024-05-25] MEDS: Metoprolol Tartrate 25 MG Tablet PO ×3 (08:13→22:05)
--- NOTE | 2024-05-25 08:25 | PCM.PROGNOTE ---
Subjective Subjective Afebrile VSS -systolic blood pressure continues to be elevated. Blood pressure over the past 12 hours has ranged from 150/52 to 178/54. Heart rate has been as high as 120. Pulse ox to this morning is 90% on room air at 06 100. Was 97% last night. Oral intake - FOOD good FLUIDS good. Fluid balance yesterday was +800. The preceding day it was -1200 and overnight she was -600. She has had to have straight cath twice in the past 24 hours. Discussed with nursing - Slept last night but, had another bad dream. Family concerned about confusion this AM. Reviewed the THERAPY notes Medication list reviewed. Continues to c/o jumpy legs. No CP, SOB, cough, dysuria. Refused VIKASH wraps again today and sitting with legs dependent. She can not recall if she slept or not last night. Objective Data Objective Data Vital Signs: Vital Signs Temp Pulse Resp BP Pulse Ox O2 Del Method O2 Flow Rate 97.7 F L 90 16 178/54 H 90 Room Air 2 05/25/24 06:00 05/25/24 06:00 05/25/24 06:00 05/25/24 06:00 05/25/24 06:00 05/25/24 06:00 05/24/24 05:19 FiO2 21 05/18/24 20:34 Oxygen Flow Rate (L/min) 2 Oxygen Delivery Method Room Air Weight: 162 lb 3 oz Body Mass Index (BMI) 31.6 Intake & Output: Intake and Output for Last 24 Hours 05/23/24 05/24/24 05/25/24 23:59 23:59 23:59 Intake Total 1000 / 1000 2000 / 1999 Output Total 2200 / 2200 1200 / 1200 600 / 600 Balance -1200 / -1200 800 / 800 -600 / -600 Lab / Micro Data 05/24/24 09:27 05/24/24 09:27 Labs: Laboratory Results - last 24 hr 05/24/24 09:27: WBC 8.3, RBC 3.66 L, Hgb 10.6 L, Hct 33.8 L, MCV 92.3, MCH 29.0, MCHC 31.4 L, RDW Std Deviation 52.7 H, RDW Coeff of Tiffani 15.7 H, Plt Count 433, MPV 9.4, Sodium 138, Potassium 4.7, Chloride 110 H, Carbon Dioxide 24.0, Anion Gap 5, BUN 25 H, Creatinine 0.93, Estim Creat Clear Calc 37.45, Est GFR (MDRD) Af Amer 73, Est GFR (MDRD) Non-Af 61, BUN/Creatinine Ratio 26.9 H, Glucose 93, Calcium 8.7, Phosphorus 2.1 L, Magnesium 2.5 Micro: Microbiology 05/17/24 13:10 Urine Catheter - Catheter Urine Culture - Final Escherichia coli 05/19/24 01:00 Stool Stool Occult Blood (NAVNEET) - Final Physical Exam Const Constitutional Narrative: drowsy this AM but, aroused easily and she is able to do PT. HEENT Mouth: dry mucous membranes Resp normal respiratory effort Resp Narrative: Initially had coarse crackles in the bases but after several very deep breaths make crackles completely resolved. No wheezing. No conversational dyspnea Effort and Inspection: Negative for tachypneic Cardio no gallops Cardio Narrative: Irregular irregular rhythm today with controlled ventricular response. Heart rate is ranging from 72-89 since last night. GI normal to inspection, nondistended, normoactive bowel sounds and soft to palpation Extremity Extremity Narrative: Refuses compression wraps and does not like to elevate her legs so she sits with them dependent most of the day. General Extremity: edema Skin Rashes: no rashes Assessment & Plan Assessment/Plan (1) Debility: (2) Subarachnoid hemorrhage: (3) Paroxysmal atrial fibrillation: (4) correction (current) use of anticoagulants: (5) Restless leg syndrome: (6) Iron deficiency anemia: QUALIFIERS: Iron deficiency anemia type: unspecified iron deficiency Qualified Code(s): D50.9 - Iron deficiency anemia, unspecified (7) Secondary pulmonary arterial hypertension: (8) Essential (primary) hypertension: (9) Hypophosphatemia: (10) Urine retention: PLAN: Plan 1. Continue therapy 2. Decrease Klonopin to 0.25 mg at at bedtime. Continue gabapentin 300 mg at 6 PM and 9 PM. 3. She received a dose of Provigil 100 mg today in hopes that we could keep her awake during the day so that she would be better able to sleep at night. 4. Has an appt for follow up with neurology/sleep medicine in September. 5. Talked with family today and explained the plan for continuing efforts to get the RLS under control. 6. Plan is for SNF at [place]. 7. Increase Lopressor to 25 mg every 8 hours. Charges/Coding Visit Charges Inpatient E&M: 91799 Subs Hosp L1
[2024-05-25 08:30] VITALS: O2SAT 98
[2024-05-25 13:41] VITALS: BP 121/46; PULSE 91
--- NOTE | 2024-05-25 15:14 | CASEMGMT ---
Social Work [facility] can accept. [facility] and [facility] both can accept but unsure if there will be a bed open at time of DC. SW followed up with [facility] on bed availability. Karolina Desir, [place] RODRIGUEZW
[2024-05-25] MEDS: Tamsulosin HCl 0.4 MG Capsule PO (18:37)
[2024-05-25] MEDS: Gabapentin 300 MG Capsule PO ×2 (18:38→22:04)
[2024-05-25 19:45] VITALS: BP 121/46; PULSE 91; RESP 16; TEMP 36.5; O2SAT 96
[2024-05-25] MEDS: clonazePAM 0.5 MG Tablet 0.25 MG PO (22:04)
[2024-05-25 22:05] VITALS: PULSE 91
[2024-05-25] MEDS: Magnesium Chloride 64 MG Delay Rel.Tablet 128 MG PO (22:05)
[2024-05-25] MEDS: MELATONIN 3 MG TABLET PO (22:07)
[2024-05-26] VITALS (7 sets, daily range): BP systolic 107–125; BP diastolic 47–56; PULSE 76–88; RESP 16–17; TEMP 36.3–36.6; O2SAT 90–97; BMI 32.1
[2024-05-26] MEDS: Acetaminophen 500 MG Tablet 1000 MG PO ×3 (04:29→21:09)
[2024-05-26] MEDS: Metoprolol Tartrate 25 MG Tablet PO ×3 (07:01→21:10)
[2024-05-26] MEDS: Modafinil 200 MG Tablet 100 MG PO (07:24)
[2024-05-26] MEDS: amLODIPine 2.5 MG Tablet PO (09:00)
[2024-05-26] MEDS: Aspirin 81 MG TAB.CHEW PO (09:00)
[2024-05-26] MEDS: Losartan Potassium 100 MG Tablet PO (09:00)
[2024-05-26] MEDS: Senna/Docusate Sodium 1 Tablet 2 TABLET PO ×2 (09:00→19:38)
[2024-05-26] MEDS: Magnesium Hydroxide 30 ML UDC PO (09:03)
[2024-05-26] MEDS: Lidocaine 5% Patch 1 PATCH TOPICAL (09:03)
[2024-05-26] MEDS: Gabapentin 300 MG Capsule PO ×2 (17:21→19:37)
[2024-05-26] MEDS: Tamsulosin HCl 0.4 MG Capsule PO (17:21)
[2024-05-26] MEDS: clonazePAM 0.5 MG Tablet 0.25 MG PO (19:37)
[2024-05-26] MEDS: MELATONIN 3 MG TABLET PO (19:37)
[2024-05-26] MEDS: Magnesium Chloride 64 MG Delay Rel.Tablet 128 MG PO (19:38)
[2024-05-26] MEDS: 0.9% Saline Lock 10 ML Syringe IV (19:42)
[2024-05-27] MEDS: Acetaminophen 500 MG Tablet 1000 MG PO ×3 (05:36→20:45)
[2024-05-27] MEDS: Modafinil 200 MG Tablet 100 MG PO (05:36)
[2024-05-27 05:37] VITALS: PULSE 73
[2024-05-27] MEDS: Metoprolol Tartrate 25 MG Tablet PO ×3 (05:37→20:45)
[2024-05-27 06:00] VITALS: BP 158/59; PULSE 73; RESP 16; TEMP 37.2; O2SAT 99
[2024-05-27 07:31] VITALS: O2SAT 93
[2024-05-27] MEDS: Lidocaine 5% Patch 1 PATCH TOPICAL (07:56)
[2024-05-27] MEDS: Losartan Potassium 100 MG Tablet PO (07:56)
[2024-05-27] MEDS: amLODIPine 2.5 MG Tablet PO (07:56)
[2024-05-27] MEDS: Aspirin 81 MG TAB.CHEW PO (07:56)
[2024-05-27] MEDS: Senna/Docusate Sodium 1 Tablet 2 TABLET PO ×2 (07:56→20:45)
--- NOTE | 2024-05-27 10:39 | PCM.PROGNOTE ---
Subjective Subjective Davis was seen on team rounds today. Afebrile VSS -blood pressure over the past 2 days has ranged from 107/56 to 158/59 this morning (this is the only BP above goal in the past 36H). . Heart rate is within normal limits. Maintaining appropriate oxygen saturation on RA Oral intake - FOOD good FLUIDS fair only most days. Had a bowel movement yesterday and also had a bowel movement today. Prior to that the last bowel movement recorded was 05/21/2024. He received a laxative on 05/26/2024. Discussed with nursing - no problems that need addressed. Slept through the night last night. She tells me that she had a nightmare but this was not documented by nursing. she was awake most of the day yesterday and she is very alert. Reviewed the THERAPY notes Medication list reviewed. Not currently having restless leg. Doing well in therapy. Did not complain of restless leg last night to me this morning. She did complain she had a bad dream......... not sure if this was last night because nursing did not mention it and they did the 2 previous nights. Denies headache, lightheadedness, vertigo, chest pain, shortness of breath at rest, nausea/vomiting/abdominal pain and calf pain. Very alert this morning with no confusion. Objective Data Objective Data Vital Signs: Vital Signs Temp Pulse Resp BP Pulse Ox O2 Del Method O2 Flow Rate 98.9 F 73 16 158/59 H 93 Room Air 2 05/27/24 06:00 05/27/24 06:00 05/27/24 06:00 05/27/24 06:00 05/27/24 07:31 05/27/24 07:31 05/27/24 06:00 FiO2 21 05/18/24 20:34 Oxygen Flow Rate (L/min) 2 Oxygen Delivery Method Room Air Weight: 164 lb 3.91 oz Body Mass Index (BMI) 32.1 Intake & Output: Intake and Output for Last 24 Hours 05/25/24 05/26/24 05/27/24 23:59 23:59 23:59 Intake Total 640 / 890 1120 / 1620 1100 / 1100 Output Total 900 / 1275 1375 / 1375 900 / 900 Balance -260 / -385 -255 / 245 200 / 200 Lab / Micro Data 05/24/24 09:27 05/24/24 09:27 Micro: Microbiology 05/17/24 13:10 Urine Catheter - Catheter Urine Culture - Final Escherichia coli 05/19/24 01:00 Stool Stool Occult Blood (NAVNEET) - Final Physical Exam Const alert Constitutional Narrative: Appropriate. Making good eye contact with me. Not confused. Did not complain of blurry vision or double vision today. General Appearance: cooperative HEENT Mouth: dry mucous membranes Resp normal respiratory effort Resp Narrative: Initially had coarse crackles in the bases but after several very deep breaths make crackles completely resolved. No wheezing. No conversational dyspnea Effort and Inspection: Negative for tachypneic Cardio regular rate, regular rhythm and no gallops Cardio Narrative: Not in atrial fibrillation today. No ectopy. Current heart rate is 73. GI normal to inspection, nondistended, normoactive bowel sounds and soft to palpation GI Narrative: No guarding with palpation. Extremity no calf tenderness General Extremity: edema Skin Rashes: no rashes Assessment & Plan Assessment/Plan (1) Debility: (2) Subarachnoid hemorrhage: (3) Paroxysmal atrial fibrillation: (4) Restless leg syndrome: (5) Iron deficiency anemia: QUALIFIERS: Iron deficiency anemia type: unspecified iron deficiency Qualified Code(s): D50.9 - Iron deficiency anemia, unspecified (6) Secondary pulmonary arterial hypertension: (7) Essential (primary) hypertension: (8) Hypophosphatemia: (9) Urine retention: PLAN: Plan 1. Continue therapy 2. Add polyethylene glycol 17 g p.o. daily to the current drug regimen. 3. Repeat a voiding trial over the weekend.......HIGINIO Patricio on Friday AM. 4. Continue Provigil 100 mg daily in the AM. Continue current doses of Klonopin and gabapentin. 5. Continue to encourage increased fluid intake. 6. DC to senior living on 05/30/24....She would like to go to TCU. 7. follow up with Dr. Quesada, appt jean paul, for RLS and CAA with stroke. Charges/Coding Visit Charges Inpatient E&M: 45879 Subs Hosp L2
[2024-05-27] MEDS: Polyethylene Glycol 3350 17 GM PACKET PO (11:57)
--- NOTE | 2024-05-27 13:51 | CASEMGMT ---
Team meeting held with pt present and pt's dgt Janki on speaker phone. PT/OT/ST/SN provided updates on pt progress. Pt is making progress with therapy, but is not able to return home alone at this time. MINNIE explained that approved 14 days with discharge set for 05/30. Previously pt had requested [facility], [facility] and [facility]. Referrals had been made to all three facilites and everyone is able to accept pt on Friday. Pt and dgt updated to this and pt preferred provider is [facility]. Pt to discharge to the TCU on 05/30 for continued theapy prior to returning home. notifed [facility], [facility] and [facility] of pt's choice. DC Date: 05/30 DC Disposition: [facility]
[2024-05-27 14:33] VITALS: BP 148/49; PULSE 97
[2024-05-27] MEDS: Sodium Chloride 0.65% 1 SPRAY SPRAY.BTL 2 SPRAY NASAL (14:33)
[2024-05-27] MEDS: Tamsulosin HCl 0.4 MG Capsule PO (17:12)
[2024-05-27] MEDS: Gabapentin 300 MG Capsule PO ×2 (17:14→20:19)
[2024-05-27 17:15] VITALS: BP 121/55; PULSE 77; RESP 17; TEMP 36.6; O2SAT 97
[2024-05-27] MEDS: clonazePAM 0.5 MG Tablet 0.25 MG PO (20:20)
[2024-05-27 20:45] VITALS: BP 128/40; PULSE 91
[2024-05-27] MEDS: Magnesium Chloride 64 MG Delay Rel.Tablet 128 MG PO (20:45)
[2024-05-27] MEDS: MELATONIN 3 MG TABLET PO (20:45)
[2024-05-28 06:12] VITALS: BP 145/51; PULSE 83; RESP 18; TEMP 36.3; O2SAT 98
[2024-05-28 06:41] VITALS: BP 145/51; PULSE 83
[2024-05-28] MEDS: Modafinil 200 MG Tablet 100 MG PO (06:41)
[2024-05-28] MEDS: Acetaminophen 500 MG Tablet 1000 MG PO ×3 (06:41→21:03)
[2024-05-28] MEDS: Metoprolol Tartrate 25 MG Tablet PO (06:41)
[2024-05-28 07:20] VITALS: O2SAT 96
[2024-05-28] MEDS: amLODIPine 2.5 MG Tablet PO (09:01)
[2024-05-28] MEDS: Senna/Docusate Sodium 1 Tablet 2 TABLET PO ×2 (09:01→21:02)
[2024-05-28] MEDS: Losartan Potassium 100 MG Tablet PO (09:01)
[2024-05-28] MEDS: Aspirin 81 MG TAB.CHEW PO (09:01)
[2024-05-28] MEDS: Polyethylene Glycol 3350 17 GM PACKET PO (09:01)
[2024-05-28] MEDS: Lidocaine 5% Patch 1 PATCH TOPICAL (09:02)
--- NOTE | 2024-05-28 12:07 | PCM.TXEXTCAR ---
Diet Diet Order/Speech Therapy: 05/16/24 16:49 Diet: Regular - General Dietary Modifications:: Gluten Free Routine Orders/Code Status Enema Type: Fleetz Enema Frequency: Daily PRN Suppository Type: Dulcolax 10mg Suppository Frequency: Daily PRN Routine Lab Work: - (Recheck phosphorus on 06/05/2024.) Code Status: Full Code DC O2, CPAP, BIPAP needs Home O2 Discharge instructions: No Wound(s) left upper chest: Wound Type: Abrasion Therapies Weight Bearing: Full weight bearing Physical Therapy: Eval and Treat Occupational Therapy: Eval and Treat Speech Therapy: Eval and Treat Problem/Diagnosis (1) Debility: Status: Acute Code(s): R53.81 - Other malaise (2) Subarachnoid hemorrhage: Status: Acute Code(s): I60.9 - Nontraumatic subarachnoid hemorrhage, unspecified (3) Cerebral amyloid angiopathy: Status: Chronic Code(s): E85.4 - Organ-limited amyloidosis; I68.0 - Cerebral amyloid angiopathy Plan: Previously on chronic anticoagulation for PAF but, this was discontinued due to CAA which puts her at increased risk for additional ICH going forward. (4) Hypophosphatemia: Status: Chronic Code(s): E83.39 - Other disorders of phosphorus metabolism Plan: Suspect due to elevated PTH/alteration in bone metabolism. Phos was supplemented and came up to 2.7 but, following discontinuation of Neutra-phos the phos dropped to 2.1 again. She is asymptomatic. Will Dc on 1 pkt of Neutra-phos daily. Would recheck a level in 7-10 days. (5) Urine retention: Status: Acute Code(s): R33.9 - Retention of urine, unspecified Plan: Due to (6) Catheter-associated urinary tract infection: Status: Resolved Code(s): T83.511A - Infection and inflammatory reaction due to indwelling urethral catheter, initial encounter; N39.0 - Urinary tract infection, site not specified Plan: E. coli. Received an appropriate course of antibiotics. Comment: Present at admission. she had a pure Wick catheter at the previous hospital and she was retaining urine at admission to rehab. Patricio was inserted at admission and the UA was done within 24 hours of admission to rehab (7) Iron deficiency anemia: Status: Chronic Code(s): D50.9 - Iron deficiency anemia, unspecified Plan: Stool was Hemoccult negative. She received a total of 700 mg of intravenous iron sucrose. she was taking oral iron as an OP and still had iron deficiency....May need IV iron in the future if she becomes iron deficient again. Less likely to happen since she is no longer on chronic anticoagulation. (8) Paroxysmal atrial fibrillation: Status: Chronic Code(s): I48.0 - Paroxysmal atrial fibrillation Plan: Previously on warfarin however she will no longer be able to take chronic anticoagulation due to the cerebral amyloid angiopathy. (9) Restless leg syndrome: Status: Chronic Code(s): G25.81 - Restless legs syndrome Plan: Did not resolve with repletion of iron stores. Has failed Mirapex and was taking Requip at home but, still having sx. I suspect she has Augmentation with Requip and Mirapex. Overnight trending pulse ox did not show any significant Oxygen saturations. She was transitioned to Gabapentin and initially had some confusion but, this has resolved. An appointment was made for her in September 2024 to follow-up with Dr. Bipin Quesada for treatment of restless leg syndrome/sleep disorder. She is also taking Klonopin 0.25 mg at HS for RLS. Sx are in the evening and at night. she does not have restless leg during the walking hours when she is doing therapy and ambulating. (10) Daytime somnolence: Status: Acute Code(s): R40.0 - Somnolence Plan: Started on Provigil 100 mg daily because she was sleeping off and on throughout the day and then could not sleep at night. (11) Sleep apnea: Status: Chronic Code(s): G47.30 - Sleep apnea, unspecified Plan: She had an overnight trending pulse ox done while on rehab and she was on and off CPAP but, had no desaturations on RA throughout the time she was monitored. Comment: She has a CPAP unit but, does not always comply with wearing it. (12) Secondary pulmonary arterial hypertension: Status: Chronic Code(s): I27.21 - Secondary pulmonary arterial hypertension (13) Essential (primary) hypertension: Status: Chronic Code(s): I10 - Essential (primary) hypertension Plan: Diastolic is always within goal. Systolic goes up to 145 at times. (14) Hypomagnesemia: Status: Resolved Code(s): E83.42 - Hypomagnesemia (15) Osteoporosis: Status: Chronic Code(s): M81.0 - Age-related osteoporosis without current pathological fracture Plan: Refuses treatment. One of her friends had an adverse reaction to the shot and she will not try Prolia. She has GERD and does not tolerate bisphosphonates. vitamin D level was checked and was WNL even though she does not take a vitamin D supplement. (16) Venous insufficiency of both lower extremities: Status: Acute Code(s): I87.2 - Venous insufficiency (chronic) (peripheral) Plan: Does not like to wear VIKASH wraps and she sits with her legs dependent most of the day. Poor oral fluid intake so we have not given any diuretics. (17) Elevated PTHrP level: Status: Chronic Code(s): R79.89 - Other specified abnormal findings of blood chemistry Plan 1. Transfer to the transitional care unit at [facility] on 05/30/2024 for continued therapy prior to her plan of returning home and living independently. 2. Gabapentin was increased to 400 mg at 6 PM and 400 mg at 10 PM on 02/25/2025. 3. Will follow-up with Dr. Bipin Quesada in September, appointment has been scheduled, for management of restless legs/cerebral amyloid angiopathy and subarachnoid hemorrhage. 4. No chronic anticoagulation for A-fib going forward due to increased risk for intracerebral hemorrhage due to cerebral amyloid angiopathy. Will continue aspirin 81 mg p.o. daily. 5. Recheck a phosphorus in 1 week. Allergies/Procedures Done in Hospital Allergies cefazolin (From Ancef) Allergy (Severe, Verified 05/11/24 11:51) Swelling Thoat and mouth swelling silk Allergy (Intermediate, Verified 05/11/24 11:51) itching duloxetine (From Cymbalta) Allergy (Unknown, Verified 05/11/24 11:51) Hives shellfish derived Allergy (Unknown, Verified 05/17/24 15:53) Other Throat irritation beet (Beet) Allergy (Verified 05/11/24 11:51) Hives cantaloupe Allergy (Verified 05/11/24 11:51) Food Allergy HIVES eggplant Allergy (Verified 05/11/24 11:51) Hives Food Allergies: Uncoded Allergy (Verified 05/11/24 11:51) Itching fermented foods, concentrates levofloxacin (From Levaquin) Allergy (Verified 05/11/24 11:51) Unknown mold Allergy (Verified 05/11/24 11:51) NEEDS FOLLOW-UP Penicillins Allergy (Verified 05/11/24 11:51) Unknown tomato Allergy (Verified 05/11/24 11:51) Food Allergy wheat Allergy (Verified 05/11/24 11:51) Hives gabapentin (From Neurontin) Adverse Reaction (Verified 05/11/24 11:51) Other meloxicam (From Mobic) Adverse Reaction (Verified 05/11/24 11:51) Other oxycodone (From OxyIR) Adverse Reaction (Verified 05/11/24 11:51) Nausea risedronate sodium (From Actonel) Adverse Reaction (Verified 05/11/24 11:51) Other Type of Care/Length of Stay Estimated LOS: Convalescent Care Less Than 30 days Type of Care Needed: Skilled Rehab Potential: Good Prognosis: Good Additional Orders/Day of Discharge H&P will serve as current which was dated: 05/16/24 Day of Discharge: 05/30/24 Dietary and Speech Recommendations Dietitian Recommendations/Changes: Continue regular diet - gluten free diet. Allergies include: beets, cantaloupe, eggplant, tomato, wheat, pork, cottage cheese, yogurt. Pt knowns what she can and cannot order d/t allergies. Will monitor weight trends. Reviewed and approved by MS Suzan, RDN, LD. Follow Up Care Please follow up with your Primary Care Physician in: Dr. Swenson following DC from [facility] Please Follow Up With: Bipin Quesada MD When: Has an appointment for 09/20/24 Please Follow Up With: Tarik Sen NP, NETWORK SUPPORT SPECIALIST-C When: July of 2024 Discharge Plan Admission Admit Date/Time: 05/16/24 16:02 Primary Reason for Your Visit: ARJUN Attending Provider: Marisabel Rousseau Primary Care Provider: Hussein Swenson Consulting Providers: Aleks Marshall Chi Discharge Orders/Prescriptions Prescriptions: New acetaminophen 500 mg Tablet 1,000 mg PO Q8 Qty: 1 0RF clonazepam 0.5 mg Tablet 0.25 mg PO 2100 Qty: 1 0RF bisacodyl 10 mg Suppository 10 mg MS X1 PRN (Reason: Constipation) Qty: 1 0RF gabapentin 400 mg Capsule 400 mg PO DAILY@1800 Qty: 1 0RF gabapentin 400 mg Capsule 400 mg PO 2200 Qty: 1 0RF modafinil 200 mg Tablet 100 mg PO DAILY@0600 Qty: 1 0RF magnesium hydroxide 400 mg/5 mL Suspension 30 ml PO X1 PRN (Reason: Constipation) Qty: 1 0RF tamsulosin 0.4 mg Capsule 0.4 mg PO DAILY@1730 Qty: 1 0RF losartan 100 mg Tablet 100 mg PO DAILY Qty: 1 0RF Deep Sea Nasal 0.65 % Aerosol,Whigham 2 spray NASAL BID PRN PRN (Reason: NASAL DRYNESS) Qty: 1 0RF potassium, sodium phosphates 280-160-250 mg Powder In Packet 1 packet PO DAILY Qty: 1 0RF magnesium chloride [Mag 64] 64 mg Tablet,Delayed Release (Dr/Ec) 128 mg PO QHS Qty: 1 0RF polyethylene glycol 3350 17 gram/dose powder 17 g PO DAILY Qty: 119 0RF metoprolol tartrate 50 mg tablet 50 mg PO BID Qty: 1 0RF Continued Prolia 60 mg/mL syringe 60 mg SC [id number] Patient Comments: due February Rx Instructions: due in february sennosides-docusate sodium [Stool Softener-Stimulant Laxat] 8.6-50 mg tablet 2 tab PO BID lidocaine 4 % adhesive patch,medicated 1 patch topical DAILY aspirin 81 mg tablet,chewable 1 tab PO DAILY Changed melatonin 3 mg capsule 3 mg PO QHS Qty: 1 0RF Discontinued atenolol 25 mg tablet 25 mg PO QAM Patient Comments: TAKE 1 TABLET BY MOUTH IN THE MORNING ropinirole 1 mg tablet 0.5 mg PO Q4H losartan 100 MG tablet 50 mg PO DAILY magnesium oxide 420 mg tablet 400 mg PO QHS Patient Comments: TAKE 1 TABLET BY MOUTH ONCE DAILY acetaminophen 325 mg capsule 650 mg PO Q4H PRN (Reason: pain) Referrals / Follow Up: Hannah Barnett APRN, CNP [Other] - 06/15/24 11:00 am () Toyin Del Castillo [Other] - 07/27/24 11:00 am Hussein Swenson MD [Primary Care Provider] - 06/14/24 2:20 pm Bipin Quesada MD [Non-Staff] - 09/20/24 8:00 am (RLS and Periodic limb movement) Disposition Disposition (needs filled in before D/C Order can be placed): Group Home Facility (6) Catheter-associated urinary tract infection Qualifiers: Indwelling urinary catheter type: unspecified Encounter type: subsequent encounter Qualified Code(s): T83.511D - Infection and inflammatory reaction due to indwelling urethral catheter, subsequent encounter; N39.0 - Urinary tract infection, site not specified (7) Iron deficiency anemia Qualifiers: Iron deficiency anemia type: unspecified iron deficiency Qualified Code(s): D50.9 - Iron deficiency anemia, unspecified (11) Sleep apnea Qualifiers: Sleep apnea type: obstructive Qualified Code(s): G47.33 - Obstructive sleep apnea (adult) (pediatric) (15) Osteoporosis Qualifiers: Osteoporosis type: age-related Presence of current pathological fracture: without current pathological fracture Qualified Code(s): M81.0 - Age-related osteoporosis without current pathological fracture
[2024-05-28 15:49] LABS: Bacteria 0 SEEN /hpf (None Seen); Mucous, Urine 0 SEEN /hpf (<or=2+); Squamous Epithelial Cells - UA 0 SEEN /hpf (5-10)
[2024-05-28 15:54] LABS: Color, Urine Yellow (Yellow); Glucose, Dipstick Normal (Normal); Ketone-Dipstick Negative (Negative); Leukocyte Esterase-Dipstick 25 /ul (Negative); Nitrite-Dipstick Negative (Negative); Occult Blood-Urine 50 /ul (Negative); Protein-Dipstick 15 mg/dl (Negative); Urine Bilirubin Dipstick Negative (Negative); Urine Clarity Clear (Clear); Urine Urobilinogen Normal (Normal); Urine pH 6.5 (5.0 - 8.0)
[2024-05-28 16:35] LABS: Red Blood Cells-Urine 5-10 SEEN /hpf (0-5); White Blood Cells 0-5 SEEN /hpf (0-5)
[2024-05-28] MEDS: Tamsulosin HCl 0.4 MG Capsule PO (17:20)
[2024-05-28] MEDS: Gabapentin 400 MG Capsule PO ×2 (17:21→21:03)
[2024-05-28 18:00] VITALS: BP 95/47; PULSE 86; RESP 16; TEMP 37; O2SAT 97
[2024-05-28] MEDS: clonazePAM 0.5 MG Tablet 0.25 MG PO (21:01)
[2024-05-28] MEDS: MELATONIN 3 MG TABLET PO (21:02)
[2024-05-28] MEDS: Magnesium Chloride 64 MG Delay Rel.Tablet 128 MG PO (21:02)
[2024-05-28 21:03] VITALS: BP 152/48; PULSE 102
[2024-05-28] MEDS: Metoprolol Tartrate 50 MG Tablet PO (21:03)
[2024-05-29] MEDS: Modafinil 200 MG Tablet 100 MG PO (05:40)
[2024-05-29] MEDS: Acetaminophen 500 MG Tablet 1000 MG PO ×3 (05:41→20:16)
[2024-05-29 05:43] VITALS: BP 159/68; PULSE 102; RESP 18; TEMP 36.5; O2SAT 96
[2024-05-29 08:21] VITALS: PULSE 72
[2024-05-29] MEDS: Na Biphos/Potassium Phosphate PACKET 1 PACKET PO (08:21)
[2024-05-29] MEDS: Senna/Docusate Sodium 1 Tablet 2 TABLET PO ×2 (08:21→20:17)
[2024-05-29] MEDS: Metoprolol Tartrate 50 MG Tablet PO ×2 (08:21→20:18)
[2024-05-29] MEDS: Lidocaine 5% Patch 1 PATCH TOPICAL (08:22)
[2024-05-29] MEDS: Losartan Potassium 100 MG Tablet PO (08:22)
[2024-05-29] MEDS: Aspirin 81 MG TAB.CHEW PO (08:22)
[2024-05-29] MEDS: Tamsulosin HCl 0.4 MG Capsule PO (17:35)
[2024-05-29] MEDS: Gabapentin 400 MG Capsule PO ×2 (17:36→20:16)
[2024-05-29 18:00] VITALS: BP 139/49; PULSE 75; RESP 16; TEMP 36.3; O2SAT 96
[2024-05-29] MEDS: clonazePAM 0.5 MG Tablet 0.25 MG PO (20:15)
[2024-05-29] MEDS: Magnesium Chloride 64 MG Delay Rel.Tablet 128 MG PO (20:16)
[2024-05-29 20:18] VITALS: BP 109/55; PULSE 88
[2024-05-30 04:38] VITALS: BP 169/61; PULSE 83; RESP 16; TEMP 36.7; O2SAT 95
[2024-05-30] MEDS: Modafinil 200 MG Tablet 100 MG PO (05:15)
[2024-05-30] MEDS: Acetaminophen 500 MG Tablet 1000 MG PO ×2 (05:15→13:27)
[2024-05-30 08:36] VITALS: PULSE 68
[2024-05-30] MEDS: Na Biphos/Potassium Phosphate PACKET 1 PACKET PO (08:36)
[2024-05-30] MEDS: Aspirin 81 MG TAB.CHEW PO (08:36)
[2024-05-30] MEDS: Losartan Potassium 100 MG Tablet PO (08:36)
[2024-05-30] MEDS: Senna/Docusate Sodium 1 Tablet 2 TABLET PO (08:36)
[2024-05-30] MEDS: Lidocaine 5% Patch 1 PATCH TOPICAL (08:36)
[2024-05-30] MEDS: Polyethylene Glycol 3350 17 GM PACKET PO (08:36)
[2024-05-30] MEDS: Metoprolol Tartrate 50 MG Tablet PO (08:36)
[2024-05-30 10:00] VITALS: BP 138/68
--- NOTE | 2024-05-30 13:57 | NURSING ---
Patient discharged to TCU.
--- NOTE | 2024-05-31 11:25 | EX.DISCHREH ---
Providers Date of Admission: 05/16/24 Date of Discharge: 05/30/24 Primary Care Physician: Dr. Hussein Swenson MD Reason For Visit: SAH Diagnosis Discharge Diagnosis (1) Debility: Status: Acute Code(s): R53.81 - Other malaise (2) Subarachnoid hemorrhage: Status: Acute Code(s): I60.9 - Nontraumatic subarachnoid hemorrhage, unspecified (3) Cerebral amyloid angiopathy: Status: Chronic Code(s): E85.4 - Organ-limited amyloidosis; I68.0 - Cerebral amyloid angiopathy Plan: Previously on chronic anticoagulation for PAF but, this was discontinued due to CAA which puts her at increased risk for additional ICH going forward. (4) Hypophosphatemia: Status: Chronic Code(s): E83.39 - Other disorders of phosphorus metabolism Plan: Suspect due to elevated PTH/alteration in bone metabolism. Phos was supplemented and came up to 2.7 but, following discontinuation of Neutra-phos the phos dropped to 2.1 again. She is asymptomatic. Will DC on 1 pkt of Neutra-phos daily. Would recheck a level in 7-10 days. (5) Urine retention: Status: Resolved Code(s): R33.9 - Retention of urine, unspecified (6) Iron deficiency anemia: Status: Chronic Code(s): D50.9 - Iron deficiency anemia, unspecified Qualifiers: Iron deficiency anemia type: unspecified iron deficiency Qualified Code(s): D50.9 - Iron deficiency anemia, unspecified Plan: Stool was Hemoccult negative. She received a total of 700 mg of intravenous iron sucrose. she was taking oral iron as an OP and still had iron deficiency....May need IV iron in the future if she becomes iron deficient again. Less likely to happen since she is no longer on chronic anticoagulation. (7) Paroxysmal atrial fibrillation: Status: Chronic Code(s): I48.0 - Paroxysmal atrial fibrillation Plan: Previously on warfarin however she will no longer be able to take chronic anticoagulation due to the cerebral amyloid angiopathy. (8) Restless leg syndrome: Status: Chronic Code(s): G25.81 - Restless legs syndrome Plan: Did not resolve with repletion of iron stores. Has failed Mirapex and was taking Requip at home but, still having sx. I suspect she has Augmentation with Requip and Mirapex. Overnight trending pulse ox did not show any significant Oxygen saturations. She was transitioned to Gabapentin and initially had some confusion but, this has resolved. An appointment was made for her in September 2024 to follow-up with Dr. Bipin Quesada for treatment of restless leg syndrome/sleep disorder. She is also taking Klonopin 0.25 mg at HS for RLS. Sx are in the evening and at night. she does not have restless leg during the walking hours when she is doing therapy and ambulating. (9) Daytime somnolence: Status: Acute Code(s): R40.0 - Somnolence Plan: Started on Provigil 100 mg daily because she was sleeping off and on throughout the day and then could not sleep at night. (10) Sleep apnea: Status: Chronic Code(s): G47.30 - Sleep apnea, unspecified Qualifiers: Sleep apnea type: obstructive Qualified Code(s): G47.33 - Obstructive sleep apnea (adult) (pediatric) Plan: She had an overnight trending pulse ox done while on rehab and she was on and off CPAP but, had no desaturations on RA throughout the time she was monitored. (11) Secondary pulmonary arterial hypertension: Status: Chronic Code(s): I27.21 - Secondary pulmonary arterial hypertension (12) Essential (primary) hypertension: Status: Chronic Code(s): I10 - Essential (primary) hypertension Plan: Diastolic is always within goal. Systolic goes up to 145 at times. (13) Hypomagnesemia: Status: Resolved Code(s): E83.42 - Hypomagnesemia (14) Osteoporosis: Status: Chronic Code(s): M81.0 - Age-related osteoporosis without current pathological fracture Qualifiers: Osteoporosis type: age-related Presence of current pathological fracture: without current pathological fracture Qualified Code(s): M81.0 - Age-related osteoporosis without current pathological fracture Plan: Refuses treatment. One of her friends had an adverse reaction to the shot and she will not try Prolia. She has GERD and does not tolerate bisphosphonates. vitamin D level was checked and was WNL even though she does not take a vitamin D supplement. (15) Venous insufficiency of both lower extremities: Status: Acute Code(s): I87.2 - Venous insufficiency (chronic) (peripheral) Plan: Does not like to wear VIKASH wraps and she sits with her legs dependent most of the day. Poor oral fluid intake so we have not given any diuretics. (16) Elevated PTHrP level: Status: Chronic Code(s): R79.89 - Other specified abnormal findings of blood chemistry (17) Acute cystitis with positive culture: Status: Resolved Code(s): N30.00 - Acute cystitis without hematuria Plan: Culture was positive for E. coli and she received an appropriate course of antibiotics. 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 She Varies from saying the requip worked to the Mirapex worked and in actuality both caused augmentation. She is finally sleeping at night on Gabapentin 400 mg at 1800 and 2200 and Klonopin 0.25 mg nightly. It is entirely possible that the nightmares kelvin due to REM sleep disorder and not medication. Prior to the Gabapentin she was upp most of the night Every night with c/o RLS. She has an appt with Dr. Quesada for NEL, RLS in September. Would continue the Gabapentin. Plan 1. Transfer to the transitional care unit at [facility] on 05/30/2024 for continued therapy prior to her plan of returning home and living independently. 2. Gabapentin was increased to 400 mg at 6 PM and 400 mg at 10 PM on 02/25/2025. 3. Will follow-up with Dr. Bipin Quesada in September, appointment has been scheduled, for management of restless legs/cerebral amyloid angiopathy and subarachnoid hemorrhage. 4. No chronic anticoagulation for A-fib going forward due to increased risk for intracerebral hemorrhage due to cerebral amyloid angiopathy. Will continue aspirin 81 mg p.o. daily. 5. Recheck a phosphorus in 1 week. Medications at Discharge Home Medications denosumab 60 mg/mL subcutaneous syringe (Prolia) 60 mg subcut [id number] osteoporosis 10/08/19 sennosides 8.6 mg-docusate sodium 50 mg tablet (Stool Softener-Stimulant Laxative) 2 tab PO BID stool softener 01/28/23 aspirin 81 mg chewable tablet 1 tab PO DAILY Heart health 05/16/24 lidocaine 4 % topical patch 1 patch topical DAILY pain 05/16/24 acetaminophen 500 mg tablet 1,000 mg (2 x 500 mg) PO Q8 pain #1 TAB 05/28/24 bisacodyl 10 mg rectal suppository 10 mg AR X1 PRN Constipation #1 ea 05/28/24 clonazepam 0.5 mg tablet 0.25 mg (1/2 x 0.5 mg) PO 2100 sleep #1 TAB 05/28/24 gabapentin 400 mg capsule 400 mg PO 2200 restless leg #1 cap 05/28/24 gabapentin 400 mg capsule 400 mg PO DAILY@1800 restless leg #1 cap 05/28/24 losartan 100 mg tablet 100 mg PO DAILY blood pressure #1 TAB 05/28/24 magnesium chloride 64 mg (magnesium chloride) tablet,delayed release (Mag 64) 128 mg (2 x 64 mg) PO QHS supplement #1 TAB 05/28/24 magnesium hydroxide 400 mg/5 mL oral suspension 30 ml PO X1 PRN Constipation #1 mL 05/28/24 melatonin 3 mg capsule 3 mg PO QHS insomnia #1 cap 05/28/24 metoprolol tartrate 50 mg tablet 50 mg PO BID blood pressure/heart #1 TAB 05/28/24 modafinil 200 mg tablet 100 mg (1/2 x 200 mg) PO DAILY@0600 sleep #1 TAB 05/28/24 polyethylene glycol 3350 17 gram/dose oral powder 17 g PO DAILY constipation #119 grams 05/28/24 potassium, sodium phosphates 280 mg-160 mg-250 mg oral powder packet 1 packet PO DAILY supplement #1 ea 05/28/24 sodium chloride 0.65 % nasal spray aerosol (Deep Sea Nasal) 2 spray NASAL BID PRN PRN NASAL DRYNESS #1 mL 05/28/24 tamsulosin 0.4 mg capsule 0.4 mg PO DAILY@1730 urination #1 cap 05/28/24 Hospital Course Operations None Procedures 2-D Echocardiogram ( ECHO/Echo Complete Interpretation Summary Normal LV size. Left ventricular systolic function is normal. The estimated ejection fraction is 65 %. Mild (1+) eccentric mitral valve insufficiency. Pulmonary artery systolic pressure is 43 mmHg.) Summary of Care Provided Minutes Spent on Discharge: 35 Hospital Course: [facility] - General General Date of Admission: 05/16/24 Date of Service: 05/17/24 Chief Complaint: Here for 3 hours daily rehabilitation. HPI Narrative JOYCE SOLOMON, is a 89 Female who presents with followin05/11/2024 [facility] ED with Neurologic signs and symptoms. Stroke versus TIA, left upper extremity weakness, slurred speech. Saw PCP, bilateral legs felt weak, on coumadin for atrial fibrillation. CBCD okay, BMP okay, Urinalysis okay, Troponin okay, INR 2.1, on coumadin. CT head showed right parietal acute intraparenchymal hemorrhage, coumadin reversed with KCentra. NIHSS 0. Transfer to [facility]. 05/11/2024 Admit to [facility] NICU. SBP > 200, started on Nicardipine. NIHSS 2. 05/12/2024 CT brain shows increased volume in SAH, but no clear ICH. Neurosurgery recommended no surgery. Blood cultures negative. MRI brain showed small volume SAH. 05/13/2024 TTE negative vegetation. 05/13/2024 Transcranial doppler ultrasound negative vasospasm. 05/14/2024 MARIA ESTHER negative vegetation, negative endocarditis. Fluctuating left upper extremity weakness. EEG negative seizures. Brain bleed 06/13 cerebral amyloid angiopathy in setting of anticoagulation with warfarin. Follow up with stroke neurology. Follow up with cardiology to consider Watchman procedure. Repeat CT head no contrast in 4 weeks (06/16/2024). Coumadin stopped, Aspirin 81mg daily instead. 05/16/2024 Admit to for 3 hours daily rehabilitation, strengthening, prior to discharge home alone. On arrival, bladderscan 925mL, blood pressure 210/65. Davis had severe RLS while on rehab. she was taking Requip at home but was breaking the tabs into pieces and taking then whenever she felt she needed it at home. The dosing frequency was much more than TID and I suspect she was experiencing augmentation. Requip is not on formulary at [facility]. She was placed on Mirapex at admission to rehab and this made the RLS worse. She was transitioned to Gabapentin and the dose was increased gradually. She was also started on Klonopin at . She had iron deficiency and received IV iron because we felt the iron deficiency was likely contributing to RLS but, this did not help with RLS. She was up a lot of the night with RLS and she was sleeping most of the day when not actively doing therapy. She did not consistently wear the CPAP at night. She was started on Provigil 100 mg daily and this was effective in resolving the daytime somnolence. At 400 mg of Gabapentin at 1800 and 400 mg at HS she was finally sleeping through the night. She is having an occasional nightmare and she is attributing this to Gabapentin. She maintains Requip was working for her at home but, she was taking it when she thought she needed it and not as instructed. I suspect she may have another sleep disorder such as periodic limb movement disorder or REM sleep disorder. An appt was made for her to follow up with Dr. Quesada for NEL/RLS/CAA but, unfortunately it is not until September. Davis did well in therapy and at the time of DC from rehab she was able to ambulate up to 315' with a FWW at [facility]. She could do 13 sit to stands in 30 sec using the UE's to rise. She was independent with eating and standby assist for grooming, bathing and upper body dressing. She is contact-guard with lower body dressing and tub/shower transfer. Davis lives by herself and did not feel she was ready to go home. She was transferred to TCU on 05/30/24 for additional therapy prior to returning home. Physical Exam Const alert, oriented x3 and no apparent distress Constitutional Narrative: Making good eye contact, appropriate General Appearance: cooperative and comfortable HEENT HEENT Narrative: Mucous membranes are dry. No carotid bruits. No cervical lymphadenopathy. Neck is supple. Eyes PERRL, EOMs intact bilaterally, conjunctivae normal and no scleral icterus Eyes Narrative: No discharge from the eyes Neck no lymphadenopathy, supple, no JVD and no carotid bruits Chest Chest: symmetrical chest wall rise Resp normal respiratory effort, no use of accessory muscles and clear to auscultation bilaterally Resp Narrative: Not tachypneic and no conversational dyspnea. Cardio regular rate, regular rhythm, S1 normal heart sound, S2 normal heart sound, no murmurs, no rub and no gallops GI normal to inspection, nondistended, normoactive bowel sounds and non-tender GI Narrative: No guarding with palpation. Extremity no clubbing, cyanosis or edema Extremity Narrative: BL LE edema. VIKASH wraps in place. sits with her legs dependent most of the day. Legs are dusky when dependent due to venous insufficiency. Skin Skin Narrative: No rashes, no skin breakdown. Neuro oriented x3, CN's II-XII intact bilaterally and no focal motor deficits Motor Exam: strength 5/5 throughout Psych affect normal Psych Narrative: Appropriate, making good eye contact. not always able to focus and answer the questions asked of her......tends to ramble. No flight of ideas. Does not appear anxious or depressed. Conversant and relating well to staff. Weight / BMI Weight Weight: 164 lb 3.91 oz Body Mass Index (BMI) 32.1 ABG / Lab / Microbiology Data 05/24/24 09:27 05/24/24 09:27 Microbiology: Microbiology 05/17/24 13:10 Urine Catheter - Catheter Urine Culture - Final Escherichia coli 05/19/24 01:00 Stool Stool Occult Blood (NAVNEET) - Final Indicators for Scoring Admitted with or Primary Diagnosis of CVA/Stroke: Yes Hx of CVA/Stroke: Yes Modified [place] Score MRS Score at time of Evaluation: 2-Slight disability NIHSS NIHSS 1a. Level of Consciousness: Alert; keenly responsive 1b. LOC Questions: Answers BOTH questions correctly. 1c. LOC Commands: Performs both tasks correctly. 2. Best Gaze: Normal 3. Visual: No visual loss 4. Facial Palsy: Normal symmetrical movements 5a. Left Arm: No drift; arm holds 90 (or 45) degrees for full 10 seconds 5b. Right Arm: No drift; arm holds 90 (or 45) degrees for full 10 seconds 6a. Left Leg: No drift; leg holds 30-degree position for full 5 seconds 6b. Right Leg: No drift; leg holds 30-degree position for full 5 seconds 7. Limb Ataxia: Absent 8. Sensory: Normal; no sensory loss 9. Best Language: No aphasia; normal 10. Dysarthria: Normal 11. Extinction and Inattention: No abnormality Total: 0 Stroke Questions Stroke Team Activated: No D/C Instructions DC O2, CPAP, BIPAP Needs PSN CPAP & BiPAP: BiPAP & CPAP Settings per PSN Fraction of Inspired Oxygen ( 05/18/24 20:34 FIO2) Home O2 Discharge instructions: No Please Follow Up With: Bipin Quesada MD Meaningful Use Info Meaningful Use Meaningful Use Diagnoses (Choose all that apply): Hemorrhagic CVA CVA Therapy Assessed for PT,OT and/or ST?: Yes Ischemic Stroke Antithrombotic order at d/c?: No Reason antithrombotic not ordered: Medical Contraindication (ICH due to CAA) Dx of Atrial fib/flutter?: Yes Anticoagulant at discharge?: No Reason anticoagulant not ordered: Medical Contraindication (She has been diagnosed with cerebral amyloid angiopathy and had an intracerebral bleed.) Statin Dosing Therapy Reference: STATIN DOSE THERAPY REFERENCE: * Patients > 75 years receive moderate or high dose statin therapy. * Patients 75 years or YOUNGER should receive HIGH intensity statin dose unless contraindicated. You will be required to document reason for non-treatment if statin daily dose does not meet guidelines. HIGH DOSE STATIN THERAPY DAILY Atorvastatin > than or = to 40 mg Rosuvastatin > than or = to 20 mg Amlodipine + Atorvastatin > than or = to 2.5/40 mg Ezetimibe + Simvastatin 10/80 mg Simvastatin 80mg Statins at discharge?: Yes Primary Dx Acute Ischemic CVA?: No IV thrombolytic ordered during stay?: No Reason IV thrombolytic not ordered: Procedure not Indicated (Patient had an intracerebral bleed.) Discharge Plan Admission Admit Date/Time: 05/16/24 16:02 Primary Reason for Your Visit: SAH Attending Provider: Joyce Rousseau Primary Care Provider: Hussein Swenson Consulting Providers: Aleks Marshall Chi Discharge Orders/Prescriptions Prescriptions: New acetaminophen 500 mg Tablet 1,000 mg PO Q8 Qty: 1 0RF clonazepam 0.5 mg Tablet 0.25 mg PO 2100 Qty: 1 0RF bisacodyl 10 mg Suppository 10 mg AR X1 PRN (Reason: Constipation) Qty: 1 0RF gabapentin 400 mg Capsule 400 mg PO DAILY@1800 Qty: 1 0RF gabapentin 400 mg Capsule 400 mg PO 2200 Qty: 1 0RF modafinil 200 mg Tablet 100 mg PO DAILY@0600 Qty: 1 0RF magnesium hydroxide 400 mg/5 mL Suspension 30 ml PO X1 PRN (Reason: Constipation) Qty: 1 0RF tamsulosin 0.4 mg Capsule 0.4 mg PO DAILY@1730 Qty: 1 0RF losartan 100 mg Tablet 100 mg PO DAILY Qty: 1 0RF Deep Sea Nasal 0.65 % Aerosol,[place] 2 spray NASAL BID PRN PRN (Reason: NASAL DRYNESS) Qty: 1 0RF potassium, sodium phosphates 280-160-250 mg Powder In Packet 1 packet PO DAILY Qty: 1 0RF magnesium chloride [Mag 64] 64 mg Tablet,Delayed Release (Dr/Ec) 128 mg PO QHS Qty: 1 0RF polyethylene glycol 3350 17 gram/dose powder 17 g PO DAILY Qty: 119 0RF metoprolol tartrate 50 mg tablet 50 mg PO BID Qty: 1 0RF Continued Prolia 60 mg/mL syringe 60 mg SC [id number] Patient Comments: due February Rx Instructions: due in february sennosides-docusate sodium [Stool Softener-Stimulant Laxat] 8.6-50 mg tablet 2 tab PO BID lidocaine 4 % adhesive patch,medicated 1 patch topical DAILY aspirin 81 mg tablet,chewable 1 tab PO DAILY Changed melatonin 3 mg capsule 3 mg PO QHS Qty: 1 0RF Discontinued atenolol 25 mg tablet 25 mg PO QAM Patient Comments: TAKE 1 TABLET BY MOUTH IN THE MORNING ropinirole 1 mg tablet 0.5 mg PO Q4H losartan 100 MG tablet 50 mg PO DAILY magnesium oxide 420 mg tablet 400 mg PO QHS Patient Comments: TAKE 1 TABLET BY MOUTH ONCE DAILY acetaminophen 325 mg capsule 650 mg PO Q4H PRN (Reason: pain) Referrals / Follow Up: Hannah Barnett APRN, CNP [Other] - 06/15/24 11:00 am () Toyin Del Castillo [Other] - 07/27/24 11:00 am Hussein Swenson MD [Primary Care Provider] - 06/14/24 2:20 pm Bipin Quesada MD [Non-Staff] - 09/20/24 8:00 am (RLS and Periodic limb movement) Disposition Disposition (needs filled in before D/C Order can be placed): Nursing Home Facility Charges/Coding Visit Charges Inpatient E&M: 40960 Disch Hosp >30min
== END 2024-05-30 13:59 | DRG 57 ==
PROVIDERS: Admitting Provider Family Medicine Geriatric Medicine; PCP Family Medicine; Visit Provider Internal Medicine
DX: I69.03 Monoplegia of upper limb following nontraumatic subarachnoid hemorrhage (principal); N30.00 Acute cystitis without hematuria; I27.21 Secondary pulmonary arterial hypertension; G25.81 Restless legs syndrome; I48.0 Paroxysmal atrial fibrillation; I69.028 Other speech and language deficits following nontraumatic subarachnoid hemorrhage; B96.20 Unspecified Escherichia coli [E. coli] as the cause of diseases classified elsewhere; J44.9 Chronic obstructive pulmonary disease, unspecified; D50.9 Iron deficiency anemia, unspecified; E89.0 Postprocedural hypothyroidism; E55.9 Vitamin D deficiency, unspecified; E78.5 Hyperlipidemia, unspecified; G47.33 Obstructive sleep apnea (adult) (pediatric); K21.9 Gastro-esophageal reflux disease without esophagitis; I87.2 Venous insufficiency (chronic) (peripheral); I68.0 Cerebral amyloid angiopathy; T83.511D Infection and inflammatory reaction due to indwelling urethral catheter, subsequent encounter; Z79.82 Long term (current) use of aspirin; R33.9 Retention of urine, unspecified; Z79.01 Long term (current) use of anticoagulants; Z79.899 Other long term (current) drug therapy; F51.5 Nightmare disorder
CPT/HCPCS: 36415; 70450; 80048; 80053; 81001; 82274; 82728; 83540; 83550; 83735; 84100; 85025; 85027; 87077; 87086; 87088; 87186; 92507; 92523; 94762; 97110; 97112; 97116; 97129; 97130; 97162; 97166; 97530; 97535; 97802; A4216; J2916

== ENCOUNTER 2024-05-30 14:19 | Inpatient (IN) | payer MEDICARE, BC, SELFPAY ==
[2024-05-30 14:21] VITALS: BP 129/49; PULSE 91; RESP 14; TEMP 36.4; O2SAT 96
[2024-05-30 14:37] VITALS: BMI 33.6
--- NOTE | 2024-05-30 16:13 | HP.PCM_ITS ---
HPI - General General Date of Admission: 05/30/24 Date of Service: 05/31/24 Chief Complaint: Here for rehabilitation. HPI Narrative JOYCE SOLOMON, is a 89 Female who presents with followin05/11/2024 [facility] ED with neurologic signs and symptoms. Left upper extremity weakness, slurred speech, bilateral leg weakness. On coumadin for atrial fibrillation. CT showed subarachnoid hemorrhage, coumadin reversed wit KCentra. Transfer to [facility]. 05/11/2024 Admit [facility] NICU. Nicardipine for SBP > 200. 05/12/2024 CT head showed increased volume SAH, no ICH. Neurosurgery recommended no surgery. Blood cultures negative. 05/13/2024 MRI brain small volue SAH. TTE negative vegetation. 05/13/2024 Transcranial doppler ultrasound negative vasospasm. 05/14/2024 MARIA ESTHER negative vegetation, negative endocarditis. Fluctutating left upper extremity weakness. Brain bleed 2/ cerebral amyloid angiopathy. Coumadin stopped, Aspirin 81mg daily instead, consider Watchman's procedure for atrial fibrillation. 05/16/2024 Admit to IRU. 05/18/2024 Check iron studies, hemoccult for anemia. 05/19/2024 IV iron x 3 for iron deficiency anemia. Klonopin 0.5mg qhs for anxiety, restless leg syndrome. Levaquin 250mg daily x 5 days for UTI, voiding trial after Levaquin.. 05/21/2024 Increase Klonopin to 1mg qhs for RLS, anxiety. Trending overnight pulsoximetry okay. Add Amlodipine 2.5mg daily for elevated blood pressure. 05/24/2024 Provigil 100mg am for increasing wakefulness. Dr. Quesada for NEL, patient not compliant with CPAP. 05/25/2024 Decrease Klonopin to 0.25mg qhs, continue Gabapentin 300mg bid. Continue Provigil 100mg daily. Increase Lopressor to 25mg q8 for HTN, atrial fibrillation. 05/27/2024 Add Miralax 17gm daily to bowel regimen. Voiding trial 05/29/2024. 05/30/2024 Dr. Quesada office appointment for restless leg syndrome, cerebral amyloid angiopathy. 05/30/2024 Admit to TCU with debility, here for rehabilitation, strengthening, prior to discharge home alone. [facility] Medical History (Updated 05/30/24 @ 16:[address] Aleks Marshall MD) Daytime somnolence Elevated PTHrP level Venous insufficiency of both lower extremities Cerebral amyloid angiopathy Osteoporosis Hypertension Lumbar compression fracture Closed compression fracture of L2 vertebra COPD (chronic obstructive pulmonary disease) Wrist fracture, right Shoulder fracture, left Hiatal hernia Restless legs History of stress test HTN (hypertension) Scarlet fever Sleep apnea CPAP (continuous positive airway pressure) dependence Pulmonary hypertension Secondary pulmonary arterial hypertension Incomplete right bundle branch block Obstructive sleep apnea Obesity Multiple fractures of ribs, left side, initial encounter for closed fracture Hypertensive emergency Pneumonia Limb weakness Difficulty balancing Thyroid disease Migraines Fatigue Arthritis Community acquired pneumonia Home Medications ?Medication ?Instructions ?Recorded ?Last Taken ?Type denosumab 60 mg/mL subcutaneous 60 mg subcut [id number] osteoporosis 10/08/19 08/24/21 History syringe (Prolia) sennosides 8.6 mg-docusate sodium 2 tab PO BID stool softener 01/28/23 05/30/24 History 50 mg tablet (Stool Softener-Stimulant Laxative) aspirin 81 mg chewable tablet 1 tab PO DAILY Heart health 05/16/24 05/30/24 History lidocaine 4 % topical patch 1 patch topical DAILY pain 05/16/24 05/30/24 History acetaminophen 500 mg tablet 1,000 mg (2 x 500 mg) PO Q8 pain 05/28/24 05/30/24 Rx #1 TAB bisacodyl 10 mg rectal suppository 10 mg NV X1 PRN Constipation #1 ea 05/28/24 Unknown Rx clonazepam 0.5 mg tablet 0.25 mg (1/2 x 0.5 mg) PO 2100 05/28/24 05/29/24 Rx sleep #1 TAB gabapentin 400 mg capsule 400 mg PO 2200 restless leg #1 cap 05/28/24 05/29/24 Rx gabapentin 400 mg capsule 400 mg PO DAILY@1800 restless leg 05/28/24 05/29/24 Rx #1 cap losartan 100 mg tablet 100 mg PO DAILY blood pressure #1 05/28/24 05/30/24 Rx TAB magnesium chloride 64 mg 128 mg (2 x 64 mg) PO QHS 05/28/24 05/29/24 Rx (magnesium chloride) supplement #1 TAB tablet,delayed release (Mag 64) magnesium hydroxide 400 mg/5 mL 30 ml PO X1 PRN Constipation #1 mL 05/28/24 Unknown Rx oral suspension melatonin 3 mg capsule 3 mg PO QHS insomnia #1 cap 05/28/24 05/28/24 Rx metoprolol tartrate 50 mg tablet 50 mg PO BID blood pressure/heart 05/28/24 Unknown Rx #1 TAB modafinil 200 mg tablet 100 mg (1/2 x 200 mg) PO 05/28/24 05/30/24 Rx DAILY@0600 sleep #1 TAB polyethylene glycol 3350 17 17 g PO DAILY constipation #119 05/28/24 Unknown Rx gram/dose oral powder grams potassium, sodium phosphates 280 1 packet PO DAILY supplement #1 ea 05/28/24 05/30/24 Rx mg-160 mg-250 mg oral powder packet sodium chloride 0.65 % nasal spray 2 spray NASAL BID PRN PRN NASAL 05/28/24 05/27/24 Rx aerosol (Deep Sea Nasal) DRYNESS #1 mL tamsulosin 0.4 mg capsule 0.4 mg PO DAILY@1730 urination #1 05/28/24 05/29/24 Rx cap Allergy/AdvReac Type Severity Reaction Status Date / Time cefazolin (From Ancef) Allergy Severe Swelling Verified 05/11/24 11:51 silk Allergy Intermediate itching Verified 05/11/24 11:51 duloxetine (From Cymbalta) Allergy Unknown Hives Verified 05/11/24 11:51 shellfish derived Allergy Unknown Other Verified 05/17/24 15:53 beet (Beet) Allergy Hives Verified 05/11/24 11:51 cantaloupe Allergy Food Verified 05/11/24 11:51 Allergy eggplant Allergy Hives Verified 05/11/24 11:51 Food Allergies: Uncoded Allergy Itching Verified 05/11/24 11:51 levofloxacin (From Levaquin) Allergy Unknown Verified 05/11/24 11:51 mold Allergy NEEDS Verified 05/11/24 11:51 FOLLOW-UP Penicillins Allergy Unknown Verified 05/11/24 11:51 tomato Allergy Food Verified 05/11/24 11:51 Allergy wheat Allergy Hives Verified 05/11/24 11:51 gabapentin (From Neurontin) AdvReac Other Verified 05/11/24 11:51 meloxicam (From Mobic) AdvReac Other Verified 12/31/24 11:51 oxycodone (From OxyIR) AdvReac Nausea Verified 05/11/24 11:51 risedronate sodium (From AdvReac Other Verified 05/11/24 11:51 Actonel) Family History Other Cancer Diabetes Heart disease Surgical History H/O radiofrequency ablation (RFA) of nerve of lumbar spine History of kyphoplasty Hx of tonsillectomy H/O partial thyroidectomy History of appendectomy History of cholecystectomy Hx of bilateral cataract extraction History of thyroid surgery Hx of appendectomy History of tonsillectomy Hx of cholecystectomy History of thymectomy History of parathyroidectomy Social History adopted: No household members: none housing: [facility] number of children: 2 current occupational status: retired current occupational exposures/hazards: No pets and animals: No leisure activities: reading and other history of recent travel: Yes ([employer] in [place]) Smoking Status: Never smoker alcohol intake: never substance use type: does not use caffeine: No ROS Constitutional Constitutional: Denies chills, fever(s) or weight gain ENT HEENT: Denies headache(s), nasal congestion or nasal discharge Cardiovascular Cardiovascular: Denies chest pain or palpitations Respiratory/Chest Respiratory/Chest: Denies cough, excessive phlegm production or shortness of breath with exertion Gastrointestinal Gastrointestinal: Denies abdominal pain, nausea or vomiting Genitourinary Genitourinary: Denies dysuria Musculoskeletal Musculoskeletal: Denies joint pain or joint swelling Integumentary Integumentary: Denies rash or wounds Neurologic Neurologic: Denies focal weakness, numbness or tingling Psychiatric Psychiatric: Denies anxiety, auditory hallucinations, depression, homicidal ideation or suicidal ideation Vital Signs Vital Signs Vital Signs: 05/30/24 14:21 05/30/24 15:07 05/30/24 15:10 Temperature 97.5 F L Temperature Source Temporal Pulse Rate 91 Pulse Rhythm Regular Pulse Strength Normal (2+) Respiratory Rate 14 Respiratory Effort Normal Non-Labored Respiratory Depth Normal Respiratory Pattern Normal Blood Pressure 129/49 H Blood Pressure Mean 75 Blood Pressure Source Monitor Blood Pressure Position Sitting Blood Pressure Location Left Forearm Pulse Ox 96 Oxygen Delivery Method Room Air Room Air Room Air 05/30/24 15:22 Temperature Temperature Source Pulse Rate Pulse Rhythm Pulse Strength Normal (2+) Respiratory Rate Respiratory Effort Respiratory Depth Respiratory Pattern Blood Pressure Blood Pressure Mean Blood Pressure Source Blood Pressure Position Blood Pressure Location Pulse Ox Oxygen Delivery Method Weight Weight: 78.109 kg Body Mass Index (BMI) 33.6 Physical Exam Const alert General Appearance: cooperative HEENT normocephalic Eyes PERRL and EOMs intact bilaterally Neck supple, no JVD and no carotid bruits Resp normal respiratory effort, normal air movement and clear to auscultation bilaterally Cardio regular rate and regular rhythm GI normal to inspection, nondistended, normoactive bowel sounds, non-tender and non-distended Extremity normal capillary refill General Extremity: Negative for edema Skin no rashes or lesions noted General Skin Exam: no breakdown Neuro moves all extremities Neuro Narrative: Right lower extremity hemiparesis. Psych affect normal Appearance: appropriate Results Lab / Micro Data 05/31/24 05:18 05/31/24 05:18 Assessment & Plan Assessment/Plan (1) Debility: (2) Subarachnoid hemorrhage: (3) Hemorrhagic stroke: (4) Urinary tract infection: (5) Restless leg syndrome: (6) Neuropathic pain: (7) Obstructive sleep apnea: (8) Essential (primary) hypertension: (9) Afib: (10) Hypomagnesemia: (11) Insomnia: (12) Urine retention: PLAN: Plan 89 year old female with below past medical history hospitalized for subarachnoid hemorrhage 2/2 cerebral amyloid angiopathy, endocarditis ruled out, admitted to IRU, complicated by urinary tract infection, restless leg syndrome, obstructive sleep apnea, neuropathic pain, urinary retention, admitted to TCU with debility, here fo rehabilitation, strengthening, prior to disposition determination. * Debility - PT/OT. * Pain - Tylenol 1000mg q8, Lidoderm 1 patch td daily. * Bowel - Miralax 17gm daily, MOM 30mL po x 1 prn, Dulcolax 10mg pr x 1 prn. * Adult immunization - Administer pneumonia vaccine, covid vaccine, flu vaccine as appropriate. * DVT prophylaxis - Hold, hemorrhagic stroke. * Atrial fibrillation - Metoprolol 50mg bid, Aspirin 81mg daily, anticoagulation held due to SAH, consider Watchman procedure. * Restless leg syndrome - Mirapex 1.5mg qhs. * Hypertension - Metoprolol 50mg bid, Losartan 100mg daily. * Hypomagnesemia - Magnesium chloride 128mg qhs. * Insomnia - Melatonin 3mg qhs. * Obstructive sleep apnea/hypopnea - Provigil 100mg daily, stable use, GDR not recommended. * Hypophosphatemia - Neutra-Phos 1 packet daily. * Dry nares - Sodium chloride 2 sprays nasal bid prn. * Urinary retention - Tamsulosin 0.4mg daily. * Osteoporosis - Prolia 60mg sc qmonth.
[2024-05-30] MEDS: Gabapentin 400 MG Capsule PO (17:34)
[2024-05-30] MEDS: Tamsulosin HCl 0.4 MG Capsule PO (17:34)
--- NOTE | 2024-05-30 20:58 | NURSING ---
Pt. A&Ox3, reports having nightmares and believes they are related to gabapentin and klonopin, meds that she does not take at home. Patient is requesting klonopin and gabapentin be discontinued and requip 3mg daily be orderd as per home regimen for restless legs. Dr. Marshall contacted via telephone, notified of patient requests. New orders received to D/c Klonpin, D/c Gabapentin, Start requip 3mg PO daily at . Dr. Marshall notified that per pharmacy, requip is not carried at [facility] and will be interchanged to Mirapex. Dr. Marshall Agreeable to pharmacy interchange. Orders repeated back to Dr. Marshall
[2024-05-30] MEDS: Senna/Docusate Sodium 1 Tablet 2 TABLET PO (21:38)
[2024-05-30] MEDS: Acetaminophen 500 MG Tablet 1000 MG PO (21:38)
[2024-05-30] MEDS: MELATONIN 3 MG TABLET PO (21:38)
[2024-05-30] MEDS: Pramipexole Di-HCl 0.5 MG Tablet 1.5 MG PO (21:38)
[2024-05-30 21:39] VITALS: BP 129/45; PULSE 86
[2024-05-30] MEDS: Metoprolol Tartrate 50 MG Tablet PO (21:39)
[2024-05-30] MEDS: Magnesium Chloride 64 MG Delay Rel.Tablet 128 MG PO (21:42)
[2024-05-31] MEDS: Modafinil 200 MG Tablet 100 MG PO (05:20)
[2024-05-31] MEDS: Acetaminophen 500 MG Tablet 1000 MG PO ×3 (05:22→22:04)
--- NOTE | 2024-05-31 05:37 | NURSING ---
Half tab modafinil (100mg) wasted with second RN Avelino
[2024-05-31 05:39] VITALS: PULSE 70; RESP 16; O2SAT 95
[2024-05-31 05:40] LABS: Absolute Lymphocyte Count 1.12 X10^3/uL (0.83-4.51); Absolute Neutrophil Count 4.2 X10^3/uL (2.0-7.7); Basophil# 0.07 X10^3/uL; Basophil% 1.1 % (0-1); Eosinophil# 0.17 X10^3/uL; Eosinophils% 2.8 % (0-5); Hematocrit 30.2 % (37-47); Hemoglobin 9.3 g/dL (12.0-15.0); Lymphocyte # 1.12 X10^3/ul (0.83-4.51); Lymphocyte % 18.1 % (19-41); Mean Corp Hgb Conc 30.8 g/dL (32-36); Mean Corpuscular Hgb 29.5 pg (27.0-32.0); Mean Corpuscular Volume 95.9 fL (81-99); Mean Platelet Vol. 9.5 fl (6.2-12.0); Monocyte# 0.57 X10^3/uL; Monocyte% 9.2 % (0-10); NRBC Flagged by Analyzer 0 % (0-5); Neutrophil # 4.17 X10^3/uL (2.7-7.7); Neutrophil % 67.5 % (47-70); Platelet Count 293 K/mm3 (150-450); RBC Distribution Width CV 15.9 % (11.6-14.6); RBC Distribution Width SD 55.9 fl (35.1-43.9); Red Blood Count 3.15 M/mm3 (4.2-5.4); White Blood Count 6.2 K/mm3 (4.4-11.0)
[2024-05-31 06:00] LABS: Anion Gap 5 (5-15); BUN 31 mg/dL (7-18); BUN/Creat Ratio 40.2 RATIO (10-20); Chloride 107 mmol/L (98-107); Creatinine, Serum 0.77 mg/dL (0.55-1.02); EST Glomerular Filtration Rate 75 mL/min (>60); Est Glom Filt Rate - Afr Amer 91 mL/min (>60); Estimated Creatinine Clearance 44.92 ml/min; Glucose 113 mg/dL (74-106); Potassium 4.9 mmol/L (3.5-5.1); Sodium Level 135 mmol/L (136-145)
[2024-05-31 06:52] VITALS: O2SAT 93
--- NOTE | 2024-05-31 07:30 | NURSING ---
slot shift manager reported redness & edema to BLEs, dr mckinney notified, new orders lasix, cleocin & doxy x7 days & doppler BLEs
[2024-05-31 08:20] VITALS: BP 167/73; PULSE 77; RESP 16; TEMP 36.4; O2SAT 97
[2024-05-31 08:23] VITALS: PULSE 77
[2024-05-31] MEDS: Losartan Potassium 100 MG Tablet PO (08:23)
[2024-05-31] MEDS: Metoprolol Tartrate 50 MG Tablet PO ×2 (08:23→22:04)
[2024-05-31] MEDS: Aspirin 81 MG TAB.CHEW PO (08:23)
[2024-05-31] MEDS: Lidocaine 5% Patch 1 PATCH TOPICAL (08:24)
[2024-05-31] MEDS: Na Biphos/Potassium Phosphate PACKET 1 PACKET PO (08:24)
[2024-05-31] MEDS: Senna/Docusate Sodium 1 Tablet 2 TABLET PO ×2 (08:24→22:05)
[2024-05-31] MEDS: Clindamycin HCl 150 MG Capsule 300 MG PO ×2 (09:56→22:05)
[2024-05-31] MEDS: Furosemide 20 MG Tablet PO (09:56)
[2024-05-31] MEDS: Doxycycline 100 MG CAPSULE PO ×2 (09:56→22:06)
[2024-05-31] MEDS: Tuberculin,Purif.prot.deriv. 50 TU/ML Vial 0.1 ML ID (09:58)
--- NOTE | 2024-05-31 11:19 | NURSING ---
vascular here to perform dopplers BLE's d/t redness and edema.
--- NOTE | 2024-05-31 11:46 | NURSING ---
medical imaging technician reported negative for DVT
--- NOTE | 2024-05-31 14:48 | NURSING ---
Therapy Aide Note; Activity Asset: Complete Marisabel has been a resident in the past and continues to be independent in her choice of daily activities. Marisabel prefers to be called Davis. She has her smartphone, word puzzles, reading materials and will watch tv. He family will bring her items she may need or want. Davis welcomes visits from the [employer] worker and therapy dog when available. Staff will encourage social group, remind her of weekly activities and respect her right to say no.
--- NOTE | 2024-05-31 15:44 | PHA.CONS_ITS ---
Documented by User: Lisbeth Echols 05/31/24 16:06 TCU RX Drug Regimen Review Subjective/Objective Subjective/Objective Subjective: TCU Admission. 89 YOF presented to ER with neuro signs/symptoms. Hospitalized for subarachnoid hemorrhage 2/2 cerebral amyloid angiopathy, en docarditis ruled out, admitted to IRU, complicated by urinary tract infection, restless leg syndrome, obstructive sleep apnea, neuropathic pain, urinary retention. Admitted to TCU with debility for strengthening and rehabilitation. Objective: Allergies cefazolin (From Ancef) Allergy (Severe, Verified 05/11/24 11:51) Swelling Thoat and mouth swelling silk Allergy (Intermediate, Verified 05/11/24 11:51) itching duloxetine (From Cymbalta) Allergy (Unknown, Verified 05/11/24 11:51) Hives shellfish derived Allergy (Unknown, Verified 05/17/24 15:53) Other Throat irritation beet (Beet) Allergy (Verified 05/11/24 11:51) Hives cantaloupe Allergy (Verified 05/11/24 11:51) Food Allergy HIVES eggplant Allergy (Verified 05/11/24 11:51) Hives Food Allergies: Uncoded Allergy (Verified 05/11/24 11:51) Itching fermented foods, concentrates levofloxacin (From Levaquin) Allergy (Verified 05/11/24 11:51) Unknown mold Allergy (Verified 05/11/24 11:51) NEEDS FOLLOW-UP Penicillins Allergy (Verified 05/11/24 11:51) Unknown tomato Allergy (Verified 05/11/24 11:51) Food Allergy wheat Allergy (Verified 05/11/24 11:51) Hives gabapentin (From Neurontin) Adverse Reaction (Verified 05/11/24 11:51) Other meloxicam (From Mobic) Adverse Reaction (Verified 05/11/24 11:51) Other oxycodone (From OxyIR) Adverse Reaction (Verified 05/11/24 11:51) Nausea risedronate sodium (From Actonel) Adverse Reaction (Verified 05/11/24 11:51) Other Current Medications Generic Name Dose Route Start Last Admin Trade Name Freq PRN Reason Stop Dose Admin Acetaminophen 1,000 mg 05/30/24 22:00 05/31/24 13:38 Acetaminophen 500 Mg Tablet PO 1,000 mg Q8 BATSHEVA Administration Aspirin 81 mg 05/31/24 08:00 05/31/24 08:23 Aspirin 81 Mg Tab.Chew PO 81 mg BREAKFAST BATSHEVA Administration Bisacodyl 10 mg 05/30/24 14:15 Bisacodyl 10 Mg Suppository RC X1 PRN Constipation Clindamycin HCl 300 mg 05/31/24 10:00 05/31/24 09:56 Clindamycin Hcl 150 Mg Capsule PO 06/07/24 10:01 300 mg BID BATSHEVA Administration Doxycycline Monohydrate 100 mg 05/31/24 10:00 05/31/24 09:56 Doxycycline 100 Mg Capsule PO 06/07/24 10:01 100 mg BID BATSHEVA Administration Furosemide 20 mg 05/31/24 10:00 05/31/24 09:56 Furosemide 20 Mg Tablet PO 06/07/24 10:01 20 mg DAILY [facility] Administration Protocol Lidocaine 1 patch 05/31/24 10:00 05/31/24 08:24 Lidocaine 5% Patch TOPICAL 1 patch DAILY BATSHEVA Administration Losartan Potassium 100 mg 05/31/24 10:00 05/31/24 08:23 Losartan Potassium 100 Mg Tablet PO 100 mg DAILY [facility] Administration Protocol Magnesium Chloride 128 mg 05/30/24 22:00 05/30/24 21:42 Magnesium Chloride 64 Mg Delay Rel.Tablet PO 128 mg QHS BATSHEVA Administration Magnesium Hydroxide 30 ml 05/30/24 14:15 Magnesium Hydroxide 30 Ml Udc PO X1 PRN Constipation Melatonin 3 mg 05/30/24 22:00 05/30/24 21:38 Melatonin 3 Mg Tablet PO 3 mg QHS BATSHEVA Administration Metoprolol Tartrate 50 mg 05/30/24 22:00 05/31/24 08:23 Metoprolol Tartrate 50 Mg Tablet PO 50 mg BID BATSHEVA Administration Protocol Modafinil 100 mg 05/31/24 06:00 05/31/24 05:20 Modafinil 200 Mg Tablet PO 100 mg DAILY@0600 BATSHEVA Administration Polyethylene Glycol 17 gm 05/31/24 10:00 05/31/24 08:25 Polyethylene Glycol 3350 17 Gm Packet PO Not Given DAILY [facility] Potassium Phos/Sodium Phos 1 packet 05/31/24 10:00 05/31/24 08:24 Na Biphos/Potassium Phosphate Packet PO 1 packet DAILY BATSHEVA Administration Pramipexole Dihydrochloride 1.5 mg 05/30/24 22:00 05/30/24 21:38 Pramipexole Di-Hcl 0.5 Mg Tablet PO 1.5 mg HS BATSHEVA Administration Senna/Docusate Sodium 2 tablet 05/30/24 22:00 05/31/24 08:24 Senna/Docusate Sodium 1 Tablet PO 2 tablet BID BATSHEVA Administration Sodium Chloride 2 spray 05/30/24 14:15 Sodium Chloride 0.65% 1 [place] San Jon.Btl NASAL BID PRN PRN NASAL DRYNESS Tamsulosin HCl 0.4 mg 05/30/24 17:30 05/30/24 17:34 Tamsulosin Hcl 0.4 Mg Capsule PO 0.4 mg DAILY@1730 BATSHEVA Administration Tuberculin PPD 0.1 ml 06/07/24 10:00 Tuberculin,Purif.Prot.Deriv. 50 Tu/Ml Vial ID 06/07/24 10:01 X1 ONE Problem List Insomnia (Acute) Obstructive sleep apnea (Acute) Neuropathic pain (Acute) Urinary tract infection (Acute) Hemorrhagic stroke (Acute) Essential (primary) hypertension (Chronic) Subarachnoid hemorrhage (Acute) Restless leg syndrome (Chronic) Debility (Acute) Vital Signs Temp Pulse Resp BP Pulse Ox O2 Del Method O2 Flow Rate 97.5 F L 77 16 167/73 H 97 Room Air 2 05/31/24 08:20 05/31/24 08:23 05/31/24 08:20 05/31/24 08:20 05/31/24 08:20 05/31/24 08:20 05/31/24 06:52 Oxygen Flow Rate (L/min) 2 Oxygen Delivery Method Room Air Weight: 78.109 kg Body Mass Index (BMI) 33.6 Sodium 135 mmol/L (136-145) L 05/31/24 05:18 Potassium 4.9 mmol/L (3.5-5.1) 05/31/24 05:18 Chloride 107 mmol/L (98-107) 05/31/24 05:18 Carbon Dioxide 23.0 mmol/L (21.0-32.0) 05/31/24 05:18 Anion Gap 5 (5-15) 05/31/24 05:18 BUN 31 mg/dL (7-18) H 05/31/24 05:18 Creatinine 0.77 mg/dL (0.55-1.02) 05/31/24 05:18 Est GFR (MDRD) Af Amer 91 mL/min (>60) 05/31/24 05:18 Est GFR (MDRD) Non-Af 75 mL/min (>60) 05/31/24 05:18 BUN/Creatinine Ratio 40.2 RATIO (10-20) H 05/31/24 05:18 Glucose 113 mg/dL (74-106) H 05/31/24 05:18 Assessment/Plan: 1. Pain: acetaminophen 1000mg PO Q8 and lidocaine 5% patch 1 patch topical daily. Please continue to monitor for increased pain and rash. 2. Bowel: Miralax 17gm PO daily, senna/docusate 2T PO BID, MOM 30mL PO x1 PRN constipation and bisacodyl 10mg RC x1 PRN constipation. Resident has not had any PRN doses. Please continue to monitor for constipation, PRN usage. Last documented bowel movement was 05/30. 3. Atrial fibrillation/hypertension: metoprolol tartrate 50mg PO BID, aspirin 81mg PO daily and losartan 100mg PO daily. Please see physician note regarding anticoagulation. Please continue to monitor for S/S of stroke/bleeding, hemoglobin (last 9.3g/dL), HR (last 77), BP (last 167/73), potassium (last 4.9mmol/L) and renal function. 4. Bilateral lower extremity edema/cellulitis: furosemide 20mg PO daily x 7 days, doxycycline 100mg PO BID x 7 days and clindamycin 300mg PO BID x 7 days. Please continue to monitor for S/S of worsening infection, renal function, potassium, cellulitis, upset stomach and diarrhea. 5. Restless leg syndrome: pramipexole 1.5mg PO QHS. Please continue to monitor for S/S of restless leg syndrome. 6. Urinary retention: tamsulosin 0.4mg PO daily. Please continue to monitor for S/S of urinary retention and BP. 7. Dry nares: sodium chloride nasal spray 2 sprays nasal BID PRN nasal dryness. Resident has not used any PRN doses. Please continue to monitor for PRN usage. 8. Hypophosphatemia: Neurta-Phos 1 packet PO daily. Please continue to monitor phosphorus (last 2.1mg/dL). 9. Hypomagnesemia: magnesium chloride 128mg PO QHS. Please continue to monitor magnesium (last 2.5mg/dL) and diarrhea. 10. Insomnia: melatonin 3mg PO QHS. Please continue to monitor for excessive daytime drowsiness. Assessment/Plan for indications treated with psychotropic medications: 1. Obstructive sleep apnea/hypopnea: modafinil 100mg PO daily. Please see physician note regarding GDR. Please continue to monitor for dizziness, drowsiness and insomnia. Medical chart and medication regimen reviewed. The following medication irregularities or issues were identified: None Date Date of Note: 05/31/24 Documented by User: Dr. Aleks Marshall MD 05/31/24 16:22 TCU RX Drug Regimen Review Provider Comments Provider responsibility Provider Comments to Recommendations by Pharmacy Agree
--- NOTE | 2024-05-31 15:47 | CASEMGMT ---
Social Work SW met with patient for new admission on TCU. Pt admitted from . SW requested advanced directives again. Pt stated her dtr has been ill and does not live close, but plans to visit this week now that she is healthy, and will provide copies. SW provided transportation resources per [facility]. Educated to SNF Medicare benefit and this worker will assist with DC planning. SW will continue to follow. RENO SnellW
[2024-05-31] MEDS: Tamsulosin HCl 0.4 MG Capsule PO (17:17)
[2024-05-31] MEDS: Pramipexole Di-HCl 0.5 MG Tablet 1.5 MG PO (22:03)
[2024-05-31 22:04] VITALS: BP 163/59; PULSE 88
[2024-05-31] MEDS: MELATONIN 3 MG TABLET PO (22:04)
[2024-05-31] MEDS: Magnesium Chloride 64 MG Delay Rel.Tablet 128 MG PO (22:05)
[2024-06-01 05:46] LABS: Hematocrit 29.8 % (37-47); Hemoglobin 9.2 g/dL (12.0-15.0)
[2024-06-01] MEDS: Modafinil 200 MG Tablet 100 MG PO (06:32)
[2024-06-01] MEDS: Acetaminophen 500 MG Tablet 1000 MG PO ×3 (06:32→20:30)
[2024-06-01 07:04] VITALS: O2SAT 98
[2024-06-01 07:35] VITALS: O2SAT 95
[2024-06-01 09:07] VITALS: BP 179/54; PULSE 86; RESP 16; TEMP 36.3; O2SAT 97
[2024-06-01 09:09] VITALS: PULSE 86
[2024-06-01] MEDS: Clindamycin HCl 150 MG Capsule 300 MG PO ×2 (09:09→20:30)
[2024-06-01] MEDS: Metoprolol Tartrate 50 MG Tablet PO ×2 (09:09→20:31)
[2024-06-01] MEDS: Losartan Potassium 100 MG Tablet PO (09:09)
[2024-06-01] MEDS: Furosemide 20 MG Tablet PO (09:09)
[2024-06-01] MEDS: Na Biphos/Potassium Phosphate PACKET 1 PACKET PO (09:09)
[2024-06-01] MEDS: Senna/Docusate Sodium 1 Tablet 2 TABLET PO ×2 (09:09→20:30)
[2024-06-01] MEDS: Lidocaine 5% Patch 1 PATCH TOPICAL (09:09)
[2024-06-01] MEDS: Doxycycline 100 MG CAPSULE PO ×2 (09:09→20:30)
[2024-06-01] MEDS: Aspirin 81 MG TAB.CHEW PO (09:10)
--- NOTE | 2024-06-01 10:48 | NURSING ---
Offered covid vaccine, VIS provided. Resident refuses at this time.
[2024-06-01] MEDS: Tamsulosin HCl 0.4 MG Capsule PO (18:14)
[2024-06-01 18:20] VITALS: BMI 33.4
[2024-06-01 20:31] VITALS: BP 149/57; PULSE 90
[2024-06-01] MEDS: MELATONIN 3 MG TABLET PO (20:31)
[2024-06-01] MEDS: Magnesium Chloride 64 MG Delay Rel.Tablet 128 MG PO (20:31)
[2024-06-01] MEDS: Pramipexole Di-HCl 0.5 MG Tablet 1.5 MG PO (20:31)
[2024-06-01 20:58] VITALS: BP 149/57; PULSE 90
--- NOTE | 2024-06-01 23:40 | NURSING ---
Small amount of emesis after administration of HS medications. Patient reports this happened with medications earlier today. Encouraged patient to sit up for at least 30 minutes after administration of medications and to eat a snack with meds to help prevent stomach upset. Patient verbalized understanding. This nurse offered patient snacks and guillermo arielle. Patient refused at this time and denies further assistance, nausea has settled.
[2024-06-02] MEDS: Modafinil 200 MG Tablet 100 MG PO (05:53)
[2024-06-02] MEDS: Acetaminophen 500 MG Tablet 1000 MG PO ×3 (06:04→21:14)
--- NOTE | 2024-06-02 06:17 | NURSING ---
Half tab modafinil (100mg) wasted with Salena MALONE at 0503.
[2024-06-02 06:56] LABS: Anion Gap 6 (5-15); BUN 25 mg/dL (7-18); BUN/Creat Ratio 33.2 RATIO (10-20); Chloride 105 mmol/L (98-107); Creatinine, Serum 0.75 mg/dL (0.55-1.02); EST Glomerular Filtration Rate 77 mL/min (>60); Est Glom Filt Rate - Afr Amer 93 mL/min (>60); Estimated Creatinine Clearance 44.76 ml/min; Glucose 99 mg/dL (74-106); Potassium 4.2 mmol/L (3.5-5.1); Sodium Level 137 mmol/L (136-145)
[2024-06-02 09:39] VITALS: BP 171/69; PULSE 92; RESP 16; TEMP 36.3
[2024-06-02] MEDS: Aspirin 81 MG TAB.CHEW PO (09:43)
[2024-06-02 09:44] VITALS: PULSE 92
[2024-06-02] MEDS: Polyethylene Glycol 3350 17 GM PACKET PO (09:44)
[2024-06-02] MEDS: Na Biphos/Potassium Phosphate PACKET 1 PACKET PO (09:44)
[2024-06-02] MEDS: Losartan Potassium 100 MG Tablet PO (09:44)
[2024-06-02] MEDS: Senna/Docusate Sodium 1 Tablet 2 TABLET PO (09:44)
[2024-06-02] MEDS: Doxycycline 100 MG CAPSULE PO ×2 (09:44→21:11)
[2024-06-02] MEDS: Metoprolol Tartrate 50 MG Tablet PO ×2 (09:44→21:12)
[2024-06-02] MEDS: Clindamycin HCl 150 MG Capsule 300 MG PO ×2 (09:44→21:11)
[2024-06-02] MEDS: Lidocaine 5% Patch 1 PATCH TOPICAL (09:44)
[2024-06-02] MEDS: Furosemide 20 MG Tablet PO (09:44)
--- NOTE | 2024-06-02 11:20 | CASEMGMT ---
Social Work IDT met with patient at bedside and dtr via conference call for care plan meeting. Discussed patient's progress in PT/OT/SN. Educated to Medicare benefit. Provided pt with written communication on insurance process and copay during stay. Pt's goal is to return home alone at baseline. Currently, struggling to lift right leg and pain can be limiting. SW will continue to follow for DC planning. RENO SnellW
--- NOTE | 2024-06-02 13:34 | NURSING ---
06/11- cancel PCP appointment for 06/15/[address] Swenson if pt will still be here.
--- NOTE | 2024-06-02 14:05 | NURSING ---
Resident reporting she has CT scan scheduled on 06/14/24, asking if can be done here. RN called and talked to Mila at the neuro office, they will fax over CT scan order. Resident will follow-up 06/15/[address] Lopez and needs to bring disk with CT results on it to appt.
--- NOTE | 2024-06-02 14:38 | NURSING ---
06/11- cancel appointment for 06/14/[address] Swenson if pt will still be here.
--- NOTE | 2024-06-02 14:39 | NURSING ---
06/11- cancel appointment for 06/14/[address] Swenson if pt will still be here.
--- NOTE | 2024-06-02 15:56 | CHAPLAIN ---
Type of Pastoral Visit _x__ Initial Visit ___ Follow-up Visit ___ On-call Visit ___ General Patient Visit ___ Spiritual Assessment ___ Family Conference ___ Bereavement ___ Rapid Response ___ Code Blue ___ Other (describe below) Pastoral Care Referral From _x__ Patient ___ Family ___ Nurse ___ Physician ___ Continuous Mining Machine Coal Miner ___ Regulatory Manager ___ Other (describe below) Sacrament/Intervention _x__ Active listening ___ Anointing ___ Muslim ___ Bereavement ___ Communion _x__ Beth exploration ___ ___ Life review _x__ Prayer ___ Reconciliation ___ Sacrament of Sick ___ Supportive presence ___ Wedding ___ Other (describe below) Pastoral Comments patient was just previously seen in Rehab unit and now she is in TCU; pt was eating a snack and welcomes this wildland firefighter to sit; pt reviews the therapy and discussion turns to her love of Southern Gospel music and a particular quartet; pt reminds this wildland firefighter of the of her son-in-law last month and the grief concerns for her daughter; pt welcomes presence and prayer for support
[2024-06-02] MEDS: Tamsulosin HCl 0.4 MG Capsule PO (16:23)
[2024-06-02 21:12] VITALS: PULSE 95
[2024-06-02] MEDS: Magnesium Chloride 64 MG Delay Rel.Tablet 128 MG PO (21:12)
[2024-06-02] MEDS: MELATONIN 3 MG TABLET PO (21:13)
[2024-06-02] MEDS: Pramipexole Di-HCl 0.5 MG Tablet 1.5 MG PO (21:13)
--- NOTE | 2024-06-03 03:40 | NURSING ---
Pt. prefers to sleep in recliner with BLE in dependant position, declines to elevate BLE on 3 pillows per order, states elevating BLE worsens restless leg syndrom and sitting upright improves discomfort. Written communication left for Dr. Marshall
[2024-06-03 05:41] LABS: Hematocrit 30.9 % (37-47); Hemoglobin 9.4 g/dL (12.0-15.0)
[2024-06-03] MEDS: Modafinil 200 MG Tablet 100 MG PO (05:57)
[2024-06-03] MEDS: Acetaminophen 500 MG Tablet 1000 MG PO ×3 (05:58→20:01)
[2024-06-03 06:11] VITALS: PULSE 71; RESP 18; O2SAT 96
[2024-06-03 07:58] VITALS: O2SAT 96
[2024-06-03 08:43] VITALS: BP 143/54; PULSE 82; RESP 17; TEMP 37; O2SAT 97
[2024-06-03] MEDS: Losartan Potassium 100 MG Tablet PO (08:43)
[2024-06-03] MEDS: Metoprolol Tartrate 50 MG Tablet PO ×2 (08:43→20:00)
[2024-06-03] MEDS: Doxycycline 100 MG CAPSULE PO ×2 (08:43→20:00)
[2024-06-03] MEDS: Clindamycin HCl 150 MG Capsule 300 MG PO ×2 (08:43→19:59)
[2024-06-03] MEDS: Aspirin 81 MG TAB.CHEW PO (08:43)
[2024-06-03] MEDS: Na Biphos/Potassium Phosphate PACKET 1 PACKET PO (08:44)
[2024-06-03] MEDS: Lidocaine 5% Patch 1 PATCH TOPICAL (08:44)
[2024-06-03] MEDS: Furosemide 40 MG Tablet PO (08:44)
[2024-06-03] MEDS: Tamsulosin HCl 0.4 MG Capsule PO (17:02)
[2024-06-03 20:00] VITALS: BP 168/61; PULSE 96
[2024-06-03] MEDS: Pramipexole Di-HCl 1 MG Tablet 3 MG PO (20:00)
[2024-06-03] MEDS: MELATONIN 3 MG TABLET PO (20:00)
[2024-06-03] MEDS: Magnesium Chloride 64 MG Delay Rel.Tablet 128 MG PO (20:00)
[2024-06-03 20:06] VITALS: BP 168/61; PULSE 96
[2024-06-03] MEDS: traMADol 50 MG Tablet PO (21:32)
[2024-06-04] MEDS: Modafinil 200 MG Tablet 100 MG PO (05:48)
[2024-06-04] MEDS: Acetaminophen 500 MG Tablet 1000 MG PO ×3 (05:48→20:29)
[2024-06-04 06:00] VITALS: PULSE 76
[2024-06-04 07:47] VITALS: BP 145/57; PULSE 72; RESP 16; TEMP 36.6; O2SAT 97
[2024-06-04] MEDS: Clindamycin HCl 150 MG Capsule 300 MG PO ×2 (07:48→20:28)
[2024-06-04] MEDS: Aspirin 81 MG TAB.CHEW PO (07:48)
[2024-06-04 07:49] VITALS: PULSE 72
[2024-06-04] MEDS: Furosemide 40 MG Tablet PO (07:49)
[2024-06-04] MEDS: Lidocaine 5% Patch 1 PATCH TOPICAL (07:49)
[2024-06-04] MEDS: Doxycycline 100 MG CAPSULE PO ×2 (07:49→20:28)
[2024-06-04] MEDS: Losartan Potassium 100 MG Tablet PO (07:49)
[2024-06-04] MEDS: Metoprolol Tartrate 50 MG Tablet PO ×2 (07:49→20:30)
[2024-06-04] MEDS: Na Biphos/Potassium Phosphate PACKET 1 PACKET PO (07:49)
--- NOTE | 2024-06-04 12:04 | MDS.RN ---
Pain assessment for MDS complete
--- NOTE | 2024-06-04 14:11 | CASEMGMT ---
Social Work SW completed BIMS () and PHQ-2 () for MDS assessment. Karolina Desir, MOLD SHIFTER SHIP'S SURVEYOR
[2024-06-04] MEDS: Tamsulosin HCl 0.4 MG Capsule PO (18:19)
[2024-06-04] MEDS: traMADol 50 MG Tablet PO (20:27)
[2024-06-04] MEDS: Magnesium Chloride 64 MG Delay Rel.Tablet 128 MG PO (20:28)
[2024-06-04] MEDS: Pramipexole Di-HCl 1 MG Tablet 3 MG PO (20:29)
[2024-06-04] MEDS: Senna/Docusate Sodium 1 Tablet 2 TABLET PO (20:29)
[2024-06-04 20:30] VITALS: BP 122/50; PULSE 80
[2024-06-04] MEDS: MELATONIN 3 MG TABLET PO (20:30)
[2024-06-04 20:34] VITALS: BP 122/50; PULSE 80
[2024-06-05] MEDS: Modafinil 200 MG Tablet 100 MG PO (06:23)
[2024-06-05] MEDS: Acetaminophen 500 MG Tablet 1000 MG PO ×3 (06:24→22:37)
[2024-06-05 06:56] LABS: Anion Gap 9 (5-15); BUN 31 mg/dL (7-18); BUN/Creat Ratio 33.4 RATIO (10-20); Chloride 99 mmol/L (98-107); Creatinine, Serum 0.93 mg/dL (0.55-1.02); EST Glomerular Filtration Rate 61 mL/min (>60); Est Glom Filt Rate - Afr Amer 73 mL/min (>60); Glucose 97 mg/dL (74-106); Potassium 4.1 mmol/L (3.5-5.1); Sodium Level 131 mmol/L (136-145)
[2024-06-05 10:00] VITALS: BP 145/45; PULSE 87; RESP 17; TEMP 36.3; O2SAT 96
[2024-06-05 10:09] VITALS: PULSE 87
[2024-06-05] MEDS: Furosemide 40 MG Tablet PO (10:09)
[2024-06-05] MEDS: Aspirin 81 MG TAB.CHEW PO (10:09)
[2024-06-05] MEDS: Lidocaine 5% Patch 1 PATCH TOPICAL (10:09)
[2024-06-05] MEDS: Metoprolol Tartrate 50 MG Tablet PO ×2 (10:09→22:40)
[2024-06-05] MEDS: Clindamycin HCl 150 MG Capsule 300 MG PO ×2 (10:09→22:36)
[2024-06-05] MEDS: Losartan Potassium 100 MG Tablet PO (10:09)
[2024-06-05] MEDS: Doxycycline 100 MG CAPSULE PO ×2 (10:09→22:40)
[2024-06-05] MEDS: Senna/Docusate Sodium 1 Tablet 2 TABLET PO ×2 (10:10→22:38)
[2024-06-05] MEDS: Na Biphos/Potassium Phosphate PACKET 1 PACKET PO (10:10)
[2024-06-05] MEDS: Polyethylene Glycol 3350 17 GM PACKET PO (10:10)
[2024-06-05] MEDS: Tamsulosin HCl 0.4 MG Capsule PO (16:58)
[2024-06-05] MEDS: Pramipexole Di-HCl 1 MG Tablet 3 MG PO (22:37)
[2024-06-05] MEDS: MELATONIN 3 MG TABLET PO (22:38)
[2024-06-05] MEDS: Magnesium Chloride 64 MG Delay Rel.Tablet 128 MG PO (22:39)
[2024-06-05 22:40] VITALS: BP 138/44; PULSE 79
[2024-06-06] MEDS: Modafinil 200 MG Tablet 100 MG PO (05:45)
[2024-06-06] MEDS: Acetaminophen 500 MG Tablet 1000 MG PO ×3 (05:46→21:13)
[2024-06-06 05:54] VITALS: PULSE 68; RESP 16; O2SAT 95
[2024-06-06 06:28] LABS: Hematocrit 28.1 % (37-47); Hemoglobin 8.9 g/dL (12.0-15.0)
[2024-06-06 10:40] VITALS: BP 164/50; PULSE 69; RESP 16; TEMP 36.5; O2SAT 96
[2024-06-06] MEDS: Clindamycin HCl 150 MG Capsule 300 MG PO ×2 (10:41→21:13)
[2024-06-06] MEDS: Aspirin 81 MG TAB.CHEW PO (10:41)
[2024-06-06 10:42] VITALS: PULSE 69
[2024-06-06] MEDS: Metoprolol Tartrate 50 MG Tablet PO ×2 (10:42→21:14)
[2024-06-06] MEDS: Doxycycline 100 MG CAPSULE PO ×2 (10:42→21:14)
[2024-06-06] MEDS: Losartan Potassium 100 MG Tablet PO (10:42)
[2024-06-06] MEDS: Furosemide 40 MG Tablet PO (10:42)
[2024-06-06] MEDS: Lidocaine 5% Patch 1 PATCH TOPICAL (10:42)
[2024-06-06] MEDS: Na Biphos/Potassium Phosphate PACKET 1 PACKET PO (10:43)
[2024-06-06] MEDS: Tamsulosin HCl 0.4 MG Capsule PO (18:37)
[2024-06-06] MEDS: Pramipexole Di-HCl 1 MG Tablet 3 MG PO (21:12)
[2024-06-06] MEDS: MELATONIN 3 MG TABLET PO (21:13)
[2024-06-06 21:14] VITALS: BP 157/57; PULSE 73
[2024-06-06] MEDS: Magnesium Chloride 64 MG Delay Rel.Tablet 128 MG PO (21:15)
[2024-06-07] MEDS: Acetaminophen 500 MG Tablet 1000 MG PO ×3 (05:26→20:54)
[2024-06-07] MEDS: Modafinil 200 MG Tablet 100 MG PO (05:26)
[2024-06-07 05:52] LABS: Absolute Lymphocyte Count 1.44 X10^3/uL (0.83-4.51); Absolute Neutrophil Count 4.2 X10^3/uL (2.0-7.7); Basophil# 0.07 X10^3/uL; Basophil% 1.1 % (0-1); Eosinophil# 0.19 X10^3/uL; Eosinophils% 2.9 % (0-5); Hematocrit 30.4 % (37-47); Hemoglobin 9.5 g/dL (12.0-15.0); Lymphocyte # 1.44 X10^3/ul (0.83-4.51); Lymphocyte % 21.8 % (19-41); Mean Corp Hgb Conc 31.3 g/dL (32-36); Mean Corpuscular Hgb 28.4 pg (27.0-32.0); Monocyte# 0.67 X10^3/uL; Monocyte% 10.1 % (0-10); NRBC Flagged by Analyzer 0 % (0-5); Neutrophil # 4.17 X10^3/uL (2.7-7.7); Neutrophil % 62.9 % (47-70); Platelet Count 373 K/mm3 (150-450); RBC Distribution Width CV 15.9 % (11.6-14.6); RBC Distribution Width SD 52.9 fl (35.1-43.9); Red Blood Count 3.34 M/mm3 (4.2-5.4); White Blood Count 6.6 K/mm3 (4.4-11.0)
[2024-06-07 06:19] LABS: Phosphorus 2.9 mg/dL (2.5-4.9)
[2024-06-07 06:29] LABS: Anion Gap 7 (5-15); BUN 21 mg/dL (7-18); BUN/Creat Ratio 26.3 RATIO (10-20); Calcium,Total 8.7 mg/dL (8.5-10.1); Chloride 98 mmol/L (98-107); EST Glomerular Filtration Rate 72 mL/min (>60); Est Glom Filt Rate - Afr Amer 87 mL/min (>60); Estimated Creatinine Clearance 44.76 ml/min; Glucose 96 mg/dL (74-106); Potassium 4.3 mmol/L (3.5-5.1); Sodium Level 132 mmol/L (136-145)
[2024-06-07] MEDS: traMADol 50 MG Tablet PO (08:20)
[2024-06-07 08:24] VITALS: PULSE 77
[2024-06-07] MEDS: Metoprolol Tartrate 50 MG Tablet PO ×2 (08:24→20:53)
[2024-06-07] MEDS: Clindamycin HCl 150 MG Capsule 300 MG PO (08:24)
[2024-06-07] MEDS: Aspirin 81 MG TAB.CHEW PO (08:24)
[2024-06-07] MEDS: Losartan Potassium 100 MG Tablet PO (08:24)
[2024-06-07] MEDS: Doxycycline 100 MG CAPSULE PO (08:24)
[2024-06-07] MEDS: Furosemide 40 MG Tablet PO (08:25)
[2024-06-07] MEDS: Lidocaine 5% Patch 1 PATCH TOPICAL (08:25)
[2024-06-07 08:29] VITALS: BP 130/44; PULSE 77; RESP 16; TEMP 36.6; O2SAT 96
--- NOTE | 2024-06-07 08:52 | NURSING ---
Controller Operations And Hr Manager Note, MDS for 06/06/2024 Complete
[2024-06-07] MEDS: Tuberculin,Purif.prot.deriv. 50 TU/ML Vial 0.1 ML ID (10:47)
[2024-06-07 11:59] VITALS: PULSE 77; RESP 15; O2SAT 96
[2024-06-07] MEDS: Tamsulosin HCl 0.4 MG Capsule PO (17:34)
[2024-06-07 20:53] VITALS: BP 125/54; PULSE 73
[2024-06-07] MEDS: Magnesium Chloride 64 MG Delay Rel.Tablet 128 MG PO (20:53)
[2024-06-07] MEDS: Pramipexole Di-HCl 1 MG Tablet 3 MG PO (20:54)
[2024-06-07] MEDS: MELATONIN 3 MG TABLET PO (20:54)
[2024-06-07 20:57] VITALS: BP 125/54; PULSE 73
[2024-06-08] MEDS: traMADol 50 MG Tablet PO ×2 (03:22→23:21)
[2024-06-08] MEDS: Acetaminophen 500 MG Tablet 1000 MG PO ×3 (05:20→20:20)
[2024-06-08] MEDS: Modafinil 200 MG Tablet 100 MG PO (05:20)
[2024-06-08 05:28] VITALS: PULSE 71; RESP 16
[2024-06-08 07:39] VITALS: BP 157/52; PULSE 71; RESP 16; TEMP 36.9; O2SAT 93
[2024-06-08 07:44] VITALS: PULSE 71
[2024-06-08] MEDS: Aspirin 81 MG TAB.CHEW PO (07:44)
[2024-06-08] MEDS: Metoprolol Tartrate 50 MG Tablet PO ×2 (07:44→20:19)
[2024-06-08] MEDS: Losartan Potassium 100 MG Tablet PO (07:44)
[2024-06-08] MEDS: Lidocaine 5% Patch 1 PATCH TOPICAL (07:44)
[2024-06-08] MEDS: Furosemide 40 MG Tablet PO (07:44)
--- NOTE | 2024-06-08 15:48 | CASEMGMT ---
Social Work SW met with pt, dtr and niece at bedside to discuss DC planning, per their request. Family discussed possible DC date options and ultimately decided on DC 06/15. IDT agreeable. Pt has appt on 06/15 and dtr will DC prior to pt's appt. SW offered skilled HHc and pt requested [facility] whom she used prior. Pt denied any DME needs. SW sent referral to [facility] via [facility]. Plan: DC home alone 06/15, [facility] PT/OT/SN Karolina Desir, CIRCUS TRAIN SUPERVISOR ALARM MECHANISM ADJUSTER
[2024-06-08 15:57] VITALS: BMI 32.9
[2024-06-08] MEDS: Tamsulosin HCl 0.4 MG Capsule PO (17:31)
--- NOTE | 2024-06-08 19:07 | DS.PCM_ITS ---
Providers Date of Admission: 05/30/24 Primary Care Physician: Dr. Hussein Swenson MD Reason For Visit: SAH Diagnosis Discharge Diagnosis (1) Debility: Status: Acute Code(s): R53.81 - Other malaise (2) Subarachnoid hemorrhage: Status: Acute Code(s): I60.9 - Nontraumatic subarachnoid hemorrhage, unspecified (3) Hemorrhagic stroke: Status: Acute Code(s): I61.9 - Nontraumatic intracerebral hemorrhage, unspecified (4) Urinary tract infection: Status: Acute Code(s): N39.0 - Urinary tract infection, site not specified (5) Restless leg syndrome: Status: Chronic Code(s): G25.81 - Restless legs syndrome (6) Neuropathic pain: Status: Acute Code(s): M79.2 - Neuralgia and neuritis, unspecified (7) Obstructive sleep apnea: Status: Acute Code(s): G47.33 - Obstructive sleep apnea (adult) (pediatric) (8) Essential (primary) hypertension: Status: Inactive Code(s): I10 - Essential (primary) hypertension (9) Afib: Status: Inactive Code(s): I48.91 - Unspecified atrial fibrillation (10) Hypomagnesemia: Status: Resolved Code(s): E83.42 - Hypomagnesemia (11) Insomnia: Status: Acute Code(s): G47.00 - Insomnia, unspecified (12) Urine retention: Status: Resolved Code(s): R33.9 - Retention of urine, unspecified Plan 89 year old female with below past medical history hospitalized for subarachnoid hemorrhage 2/2 cerebral amyloid angiopathy, endocarditis ruled out, admitted to IRU, complicated by urinary tract infection, restless leg syndrome, obstructive sleep apnea, neuropathic pain, urinary retention, admitted to TCU with debility, here fo rehabilitation, strengthening, prior to disposition determination. * Debility - PT/OT. * Pain - Tylenol 1000mg q8, Lidoderm 1 patch td daily. * Bowel - Miralax 17gm daily, MOM 30mL po x 1 prn, Dulcolax 10mg pr x 1 prn. * Adult immunization - Administer pneumonia vaccine, covid vaccine, flu vaccine as appropriate. * DVT prophylaxis - Hold, hemorrhagic stroke. * Atrial fibrillation - Metoprolol 50mg bid, Aspirin 81mg daily, anticoagulation held due to SAH, consider Watchman procedure. * Restless leg syndrome - Mirapex 1.5mg qhs. * Hypertension - Metoprolol 50mg bid, Losartan 100mg daily. * Hypomagnesemia - Magnesium chloride 128mg qhs. * Insomnia - Melatonin 3mg qhs. * Obstructive sleep apnea/hypopnea - Provigil 100mg daily, stable use, GDR not recommended. * Hypophosphatemia - Neutra-Phos 1 packet daily. * Dry nares - Sodium chloride 2 sprays nasal bid prn. * Urinary retention - Tamsulosin 0.4mg daily. * Osteoporosis - Prolia 60mg sc qmonth. Medications at Discharge Home Medications denosumab 60 mg/mL subcutaneous syringe (Prolia) 60 mg subcut [id number] osteoporosis 10/08/19 aspirin 81 mg chewable tablet 1 tab PO DAILY [facility] 05/16/24 magnesium chloride 64 mg (magnesium chloride) tablet,delayed release (Mag 64) 128 mg (2 x 64 mg) PO QHS supplement #1 TAB 05/28/24 melatonin 3 mg capsule 3 mg PO QHS insomnia #1 cap 05/28/24 acetaminophen 500 mg tablet 1,000 mg (2 x 500 mg) PO Q8 #0 tabs 06/08/24 furosemide 40 mg tablet 40 mg PO DAILY 30 days #30 tabs 06/08/24 lidocaine 5 % topical patch 1 patch topical DAILY 30 days #30 ea 06/08/24 losartan 100 mg tablet 100 mg PO DAILY 30 days #30 tabs 06/08/24 metoprolol tartrate 50 mg tablet 50 mg PO BID 30 days #60 tabs 06/08/24 modafinil 200 mg tablet 100 mg (1/2 x 200 mg) PO DAILY@0600 30 days #30 tabs 06/08/24 pramipexole 1 mg tablet 3 mg (3 x 1 mg) PO HS 30 days #90 tabs 06/08/24 tamsulosin 0.4 mg capsule 0.4 mg PO DAILY@1730 30 days #30 caps 06/08/24 tramadol 50 mg tablet 50 mg PO Q6H PRN PRN Pain Score 1-10 Or Pre Pt/Ot 7 days #28 tabs 06/08/24 Hospital Course Operations None Procedures None Summary of Care Provided Minutes Spent on Discharge: 35 Hospital Course: 89 year old female with below past medical history hospitalized for subarachnoid hemorrhage 2/2 cerebral amyloid angiopathy, endocarditis ruled out, admitted to IRU, complicated by urinary tract infection, restless leg syndrome, obstructive sleep apnea, neuropathic pain, urinary retention, admitted to TCU with debility, here fo rehabilitation, strengthening, prior to disposition determination. 05/31/2024 Doppler ultrasound bilateral lower extremities NEGATVE for DVT. Discharge home alone 06/15/2024, [facility] PT/OT/SN. Physical Exam Const alert General Appearance: cooperative HEENT normocephalic Eyes PERRL and EOMs intact bilaterally Neck supple, no JVD and no carotid bruits Resp normal respiratory effort, normal air movement and clear to auscultation bilaterally Cardio regular rate and regular rhythm GI normal to inspection, nondistended, normoactive bowel sounds, non-tender and non-distended Extremity normal capillary refill General Extremity: Negative for edema Skin no rashes or lesions noted General Skin Exam: no breakdown Neuro moves all extremities Neuro Narrative: Right lower extremity hemiparesis. Psych affect normal Appearance: appropriate Weight / BMI Weight Weight: 76.158 kg Body Mass Index (BMI) 32.9 ABG / Lab / Microbiology Data 06/07/24 05:18 06/07/24 05:18 D/C Instructions Discharge Diet: No restrictions Discharge Activity: Return to Normal Activity, May Shower and Use Walker Weight Bearing Status: Weight bearing as tolerated Call your doctor if you observe: Fever of 101 or Higher, Inability to urinate, Inability to have a bowel movement, Shortness of breath, Dizziness, Fainting spells, Swelling in the ankles, Chest pain and Uncontrolled pain DC O2, CPAP, BIPAP Needs Home O2 Discharge instructions: No Additional Instructions: Discharge home alone 06/15/2024, [facility] PT/OT/SN. Please Follow Up With: Hussein Swenson MD When: Within 1 week. Meaningful Use Info Meaningful Use Meaningful Use Diagnoses (Choose all that apply): Hemorrhagic CVA CVA Therapy Assessed for PT,OT and/or ST?: Yes Ischemic Stroke Statin Dosing Therapy Reference: STATIN DOSE THERAPY REFERENCE: * Patients > 75 years receive moderate or high dose statin therapy. * Patients 75 years or YOUNGER should receive HIGH intensity statin dose unless contraindicated. You will be required to document reason for non-treatment if statin daily dose does not meet guidelines. HIGH DOSE STATIN THERAPY DAILY Atorvastatin > than or = to 40 mg Rosuvastatin > than or = to 20 mg Amlodipine + Atorvastatin > than or = to 2.5/40 mg Ezetimibe + Simvastatin 10/80 mg Simvastatin 80mg Discharge Plan Admission Admit Date/Time: 05/30/24 14:19 Primary Reason for Your Visit: Debility. Attending Provider: Aleks Marshall Chi Primary Care Provider: Hussein Swenson Instructions Additional Instructions / Restrictions: Discharge home alone 06/15/2024, [facility] PT/OT/SN. Discharge Orders/Prescriptions Prescriptions: New pramipexole 1 mg Tablet 3 mg PO HS 30 Days Qty: 90 0RF furosemide 40 mg Tablet 40 mg PO DAILY 30 Days Qty: 30 0RF tramadol 50 mg Tablet 50 mg PO Q6H PRN PRN (Reason: Pain Score 1-10 Or Pre Pt/Ot) 7 Days Qty: 28 0RF acetaminophen 500 mg Tablet 1,000 mg PO Q8 Qty: 0 0RF modafinil 200 mg Tablet 100 mg PO DAILY@0600 30 Days Qty: 30 0RF tamsulosin 0.4 mg Capsule 0.4 mg PO DAILY@1730 30 Days Qty: 30 0RF lidocaine 5 % Adhesive Patch,Medicated 1 patch topical DAILY 30 Days Qty: 30 0RF metoprolol tartrate 50 mg Tablet 50 mg PO BID 30 Days Qty: 60 0RF losartan 100 mg Tablet 100 mg PO DAILY 30 Days Qty: 30 0RF Continued Prolia 60 mg/mL syringe 60 mg SC [id number] Patient Comments: due February Rx Instructions: due in february aspirin 81 mg tablet,chewable 1 tab PO DAILY magnesium chloride [Mag 64] 64 mg Tablet,Delayed Release (Dr/Ec) 128 mg PO QHS Qty: 1 0RF melatonin 3 mg capsule 3 mg PO QHS Qty: 1 0RF Discontinued sennosides-docusate sodium [Stool Softener-Stimulant Laxat] 8.6-50 mg tablet 2 tab PO BID lidocaine 4 % adhesive patch,medicated 1 patch topical DAILY acetaminophen 500 mg Tablet 1,000 mg PO Q8 Qty: 1 0RF clonazepam 0.5 mg Tablet 0.25 mg PO 2100 Qty: 1 0RF bisacodyl 10 mg Suppository 10 mg TN X1 PRN (Reason: Constipation) Qty: 1 0RF gabapentin 400 mg Capsule 400 mg PO DAILY@1800 Qty: 1 0RF gabapentin 400 mg Capsule 400 mg PO 2200 Qty: 1 0RF modafinil 200 mg Tablet 100 mg PO DAILY@0600 Qty: 1 0RF magnesium hydroxide 400 mg/5 mL Suspension 30 ml PO X1 PRN (Reason: Constipation) Qty: 1 0RF tamsulosin 0.4 mg Capsule 0.4 mg PO DAILY@1730 Qty: 1 0RF losartan 100 mg Tablet 100 mg PO DAILY Qty: 1 0RF [place] Nasal 0.65 % Aerosol,[place] 2 spray NASAL BID PRN PRN (Reason: NASAL DRYNESS) Qty: 1 0RF potassium, sodium phosphates 280-160-250 mg Powder In Packet 1 packet PO DAILY Qty: 1 0RF polyethylene glycol 3350 17 gram/dose powder 17 g PO DAILY Qty: 119 0RF metoprolol tartrate 50 mg tablet 50 mg PO BID Qty: 1 0RF Referrals / Follow Up: Hussein Swenson MD [Primary Care Provider] - Disposition Disposition (needs filled in before D/C Order can be placed): Home Health Service
[2024-06-08 20:19] VITALS: BP 150/51; PULSE 81
[2024-06-08] MEDS: Magnesium Chloride 64 MG Delay Rel.Tablet 128 MG PO (20:19)
[2024-06-08] MEDS: Senna/Docusate Sodium 1 Tablet 2 TABLET PO (20:19)
[2024-06-08] MEDS: MELATONIN 3 MG TABLET PO (20:19)
[2024-06-08] MEDS: Pramipexole Di-HCl 1 MG Tablet 3 MG PO (20:20)
[2024-06-08 20:23] VITALS: BP 150/51; PULSE 81
[2024-06-09] MEDS: Acetaminophen 500 MG Tablet 1000 MG PO ×3 (05:39→22:22)
[2024-06-09] MEDS: Modafinil 200 MG Tablet 100 MG PO (05:39)
[2024-06-09] MEDS: Losartan Potassium 100 MG Tablet PO (08:30)
[2024-06-09] MEDS: Aspirin 81 MG TAB.CHEW PO (08:30)
[2024-06-09] MEDS: Furosemide 40 MG Tablet PO (08:31)
[2024-06-09] MEDS: Lidocaine 5% Patch 1 PATCH TOPICAL (08:31)
[2024-06-09 08:32] VITALS: BP 138/51; PULSE 75
[2024-06-09] MEDS: Metoprolol Tartrate 50 MG Tablet PO ×2 (08:32→22:23)
[2024-06-09] MEDS: Senna/Docusate Sodium 1 Tablet 2 TABLET PO ×2 (08:32→22:24)
[2024-06-09 14:50] VITALS: BP 155/55; PULSE 67; RESP 18; TEMP 36.4; O2SAT 95
[2024-06-09] MEDS: Tamsulosin HCl 0.4 MG Capsule PO (17:04)
[2024-06-09] MEDS: Pramipexole Di-HCl 1 MG Tablet 3 MG PO (22:22)
[2024-06-09 22:23] VITALS: BP 159/86; PULSE 89
[2024-06-09] MEDS: Magnesium Chloride 64 MG Delay Rel.Tablet 128 MG PO (22:23)
[2024-06-09] MEDS: MELATONIN 3 MG TABLET PO (22:24)
[2024-06-10] MEDS: Acetaminophen 500 MG Tablet 1000 MG PO ×3 (06:00→21:50)
[2024-06-10] MEDS: Modafinil 200 MG Tablet 100 MG PO (06:00)
[2024-06-10] MEDS: Lidocaine 5% Patch 1 PATCH TOPICAL (08:48)
[2024-06-10 08:49] VITALS: BP 160/62; PULSE 80; RESP 16; TEMP 36.3; O2SAT 97
[2024-06-10] MEDS: Losartan Potassium 100 MG Tablet PO (08:49)
[2024-06-10] MEDS: Metoprolol Tartrate 50 MG Tablet PO ×2 (08:49→21:49)
[2024-06-10] MEDS: Furosemide 40 MG Tablet PO (08:49)
[2024-06-10] MEDS: Aspirin 81 MG TAB.CHEW PO (08:49)
[2024-06-10] MEDS: Tamsulosin HCl 0.4 MG Capsule PO (17:27)
[2024-06-10 21:49] VITALS: BP 155/42; PULSE 94
[2024-06-10] MEDS: Magnesium Chloride 64 MG Delay Rel.Tablet 128 MG PO (21:49)
[2024-06-10] MEDS: Pramipexole Di-HCl 1 MG Tablet 3 MG PO (21:49)
[2024-06-10] MEDS: MELATONIN 3 MG TABLET PO (21:49)
[2024-06-11] MEDS: traMADol 50 MG Tablet PO (01:52)
[2024-06-11] MEDS: Modafinil 200 MG Tablet 100 MG PO (05:42)
[2024-06-11] MEDS: Acetaminophen 500 MG Tablet 1000 MG PO ×3 (05:42→19:56)
--- NOTE | 2024-06-11 08:38 | MDS.RN ---
Information for the MDS was obtained from review of the clinical record, interview of resident, staff, and direct observation of resident?s care.
[2024-06-11 09:28] VITALS: BP 155/43; PULSE 75; RESP 17; TEMP 35.8; O2SAT 96
[2024-06-11 09:35] VITALS: PULSE 75
[2024-06-11] MEDS: Aspirin 81 MG TAB.CHEW PO (09:35)
[2024-06-11] MEDS: Metoprolol Tartrate 50 MG Tablet PO ×2 (09:35→19:55)
[2024-06-11] MEDS: Losartan Potassium 100 MG Tablet PO (09:35)
[2024-06-11] MEDS: Lidocaine 5% Patch 1 PATCH TOPICAL (09:35)
[2024-06-11] MEDS: Tamsulosin HCl 0.4 MG Capsule PO (17:07)
[2024-06-11 19:55] VITALS: BP 128/42; PULSE 78
[2024-06-11] MEDS: Pramipexole Di-HCl 1 MG Tablet 3 MG PO (19:56)
[2024-06-11] MEDS: MELATONIN 3 MG TABLET PO (19:56)
[2024-06-11] MEDS: Magnesium Chloride 64 MG Delay Rel.Tablet 128 MG PO (19:56)
[2024-06-11 19:59] VITALS: PULSE 78; RESP 16; O2SAT 92
[2024-06-12] MEDS: traMADol 50 MG Tablet PO ×2 (03:25→20:45)
[2024-06-12] MEDS: Acetaminophen 500 MG Tablet 1000 MG PO ×3 (05:29→20:41)
[2024-06-12] MEDS: Modafinil 200 MG Tablet 100 MG PO (05:30)
[2024-06-12 06:58] VITALS: RESP 16
[2024-06-12 08:44] VITALS: BP 120/40; PULSE 80; RESP 16; TEMP 36.4; O2SAT 97
[2024-06-12 08:48] VITALS: PULSE 80
[2024-06-12] MEDS: Metoprolol Tartrate 50 MG Tablet PO ×2 (08:48→20:40)
[2024-06-12] MEDS: Aspirin 81 MG TAB.CHEW PO (08:48)
[2024-06-12] MEDS: Losartan Potassium 100 MG Tablet PO (08:48)
[2024-06-12] MEDS: Lidocaine 5% Patch 1 PATCH TOPICAL (08:48)
[2024-06-12] MEDS: Senna/Docusate Sodium 1 Tablet 2 TABLET PO ×2 (08:49→20:41)
[2024-06-12] MEDS: Tamsulosin HCl 0.4 MG Capsule PO (17:05)
[2024-06-12 20:40] VITALS: BP 150/42; PULSE 80
[2024-06-12] MEDS: Magnesium Chloride 64 MG Delay Rel.Tablet 128 MG PO (20:40)
[2024-06-12] MEDS: Pramipexole Di-HCl 1 MG Tablet 3 MG PO (20:41)
[2024-06-12] MEDS: MELATONIN 3 MG TABLET PO (20:41)
[2024-06-12 20:46] VITALS: BP 150/42; PULSE 80
[2024-06-13] MEDS: Modafinil 200 MG Tablet 100 MG PO (05:42)
[2024-06-13] MEDS: Acetaminophen 500 MG Tablet 1000 MG PO ×3 (05:42→21:09)
[2024-06-13 05:50] VITALS: PULSE 72; RESP 16
[2024-06-13 08:37] VITALS: BP 119/39; PULSE 77; RESP 18; TEMP 36.9; O2SAT 95
[2024-06-13] MEDS: Aspirin 81 MG TAB.CHEW PO (08:39)
[2024-06-13] MEDS: Losartan Potassium 100 MG Tablet PO (08:39)
[2024-06-13 08:40] VITALS: PULSE 77
[2024-06-13] MEDS: Metoprolol Tartrate 50 MG Tablet PO ×2 (08:40→21:11)
[2024-06-13] MEDS: Lidocaine 5% Patch 1 PATCH TOPICAL (08:40)
--- NOTE | 2024-06-13 16:20 | NURSING ---
Last known BM dated 06/10. Patient refused stooling agents this morning. Discussed risks and signs/symptoms of constipation. Patient acknowledges. Stated I will give it one more day. Will continue to monitor.
[2024-06-13] MEDS: Tamsulosin HCl 0.4 MG Capsule PO (18:18)
[2024-06-13] MEDS: Magnesium Chloride 64 MG Delay Rel.Tablet 128 MG PO (21:08)
[2024-06-13] MEDS: Senna/Docusate Sodium 1 Tablet 2 TABLET PO (21:10)
[2024-06-13] MEDS: Pramipexole Di-HCl 1 MG Tablet 3 MG PO (21:10)
[2024-06-13] MEDS: MELATONIN 3 MG TABLET PO (21:10)
[2024-06-13 21:11] VITALS: BP 144/63; PULSE 79
[2024-06-14] MEDS: traMADol 50 MG Tablet PO (02:00)
[2024-06-14] MEDS: Modafinil 200 MG Tablet 100 MG PO (05:20)
[2024-06-14] MEDS: Acetaminophen 500 MG Tablet 1000 MG PO ×3 (05:21→19:58)
[2024-06-14 05:50] LABS: Absolute Lymphocyte Count 1.51 X10^3/uL (0.83-4.51); Basophil# 0.05 X10^3/uL; Basophil% 0.9 % (0-1); Eosinophil# 0.27 X10^3/uL; Eosinophils% 4.8 % (0-5); Hematocrit 29.7 % (37-47); Hemoglobin 9.4 g/dL (12.0-15.0); Lymphocyte # 1.51 X10^3/ul (0.83-4.51); Lymphocyte % 26.8 % (19-41); Mean Corp Hgb Conc 31.6 g/dL (32-36); Mean Corpuscular Hgb 29.8 pg (27.0-32.0); Mean Corpuscular Volume 94.3 fL (81-99); Mean Platelet Vol. 9.3 fl (6.2-12.0); Monocyte# 0.69 X10^3/uL; Monocyte% 12.3 % (0-10); NRBC Flagged by Analyzer 0 % (0-5); Neutrophil # 3.04 X10^3/uL (2.7-7.7); Platelet Count 308 K/mm3 (150-450); RBC Distribution Width SD 55.8 fl (35.1-43.9); Red Blood Count 3.15 M/mm3 (4.2-5.4); White Blood Count 5.6 K/mm3 (4.4-11.0)
[2024-06-14 06:13] LABS: Anion Gap 7 (5-15); BUN 30 mg/dL (7-18); BUN/Creat Ratio 36.6 RATIO (10-20); Calcium,Total 8.9 mg/dL (8.5-10.1); Chloride 101 mmol/L (98-107); Creatinine, Serum 0.82 mg/dL (0.55-1.02); EST Glomerular Filtration Rate 70 mL/min (>60); Est Glom Filt Rate - Afr Amer 85 mL/min (>60); Estimated Creatinine Clearance 43.24 ml/min; Glucose 95 mg/dL (74-106); Potassium 4.6 mmol/L (3.5-5.1); Sodium Level 132 mmol/L (136-145)
[2024-06-14 07:39] VITALS: BP 146/52; PULSE 68; RESP 16; TEMP 36.2; O2SAT 96
[2024-06-14 07:42] VITALS: PULSE 68
[2024-06-14] MEDS: Metoprolol Tartrate 50 MG Tablet PO ×2 (07:42→19:57)
[2024-06-14] MEDS: Losartan Potassium 100 MG Tablet PO (07:43)
[2024-06-14] MEDS: Lidocaine 5% Patch 1 PATCH TOPICAL (07:43)
[2024-06-14] MEDS: Aspirin 81 MG TAB.CHEW PO (07:43)
--- NOTE | 2024-06-14 09:51 | NURSING ---
ORDER FAXED AGAIN FOR CT OF HEAD W/OUT CONTRAST PER NEURO ORDER. CT UPDATED, WILL CALL WHEN READY FOR PT
--- NOTE | 2024-06-14 10:04 | NURSING ---
PT OFF UNIT VIA WC FOR HEAD CT AT THIS TIME
--- NOTE | 2024-06-14 11:23 | NURSING ---
CT SCAN DISK OF HEAD GIVEN TO PT PER NEURO REQUEST FOR F/U APPT TOMORROW.
--- NOTE | 2024-06-14 15:55 | CASEMGMT ---
Social Work SW completed BIMS () and PHQ-2 () for MDS assessment. Karolina Desir BUFFET RUNNER DENTURE MODEL MAKER
[2024-06-14] MEDS: Tamsulosin HCl 0.4 MG Capsule PO (16:57)
[2024-06-14 19:15] VITALS: BP 141/59; PULSE 69; RESP 16; TEMP 36.8; O2SAT 95
[2024-06-14 19:44] VITALS: BP 157/52; PULSE 86
[2024-06-14 19:56] VITALS: PULSE 86; RESP 16
[2024-06-14 19:57] VITALS: BP 157/52; PULSE 86
[2024-06-14] MEDS: Magnesium Chloride 64 MG Delay Rel.Tablet 128 MG PO (19:57)
[2024-06-14] MEDS: Senna/Docusate Sodium 1 Tablet 2 TABLET PO (19:58)
[2024-06-14] MEDS: Pramipexole Di-HCl 1 MG Tablet 3 MG PO (19:58)
[2024-06-14] MEDS: MELATONIN 3 MG TABLET PO (19:58)
[2024-06-15] MEDS: traMADol 50 MG Tablet PO (00:18)
[2024-06-15] MEDS: Modafinil 200 MG Tablet 100 MG PO (05:23)
[2024-06-15] MEDS: Acetaminophen 500 MG Tablet 1000 MG PO (05:24)
[2024-06-15 05:30] VITALS: PULSE 69; RESP 16
[2024-06-15] MEDS: Aspirin 81 MG TAB.CHEW PO (07:39)
[2024-06-15] MEDS: Lidocaine 5% Patch 1 PATCH TOPICAL (08:40)
== END 2024-06-15 09:05 | disposition home health service (06) | DRG 546 ==
PROVIDERS: Admitting Provider Family Medicine Geriatric Medicine; PCP Family Medicine; Visit Provider Family Medicine Geriatric Medicine
DX: E85.4 Organ-limited amyloidosis (principal); L03.115 Cellulitis of right lower limb; L03.116 Cellulitis of left lower limb; E83.39 Other disorders of phosphorus metabolism; I27.21 Secondary pulmonary arterial hypertension; G25.81 Restless legs syndrome; I48.91 Unspecified atrial fibrillation; I69.028 Other speech and language deficits following nontraumatic subarachnoid hemorrhage; I69.03 Monoplegia of upper limb following nontraumatic subarachnoid hemorrhage; J44.9 Chronic obstructive pulmonary disease, unspecified; I10 Essential (primary) hypertension; E83.42 Hypomagnesemia; G47.33 Obstructive sleep apnea (adult) (pediatric); I68.0 Cerebral amyloid angiopathy; I69.0 Sequelae of nontraumatic subarachnoid hemorrhage; G47.00 Insomnia, unspecified; R33.9 Retention of urine, unspecified; Z79.82 Long term (current) use of aspirin; Z79.899 Other long term (current) drug therapy; M81.0 Age-related osteoporosis without current pathological fracture

== ENCOUNTER → 2024-05-31 | Outpatient (CLI) | payer MEDICARE, BC, SELFPAY ==
--- NOTE | 2024-05-31 08:42 | VDLE_ITS ---
Reason For Study: Bilateral leg swelling RIGHT LEFT GSV is normal. GSV is normal. CFV is compressible, spontaneous, phasic, CFV is compressible, spontaneous, phasic, competent and demonstrates normal competent, and demonstrates normal augmentation. augmentation. FV is compressible, spontaneous, phasic, FV is compressible, spontaneous, phasic, competent and demonstrates normal competent and demonstrates normal augmentation. augmentation. POP V is compressible, spontaneous, phasic, POP V is compressible, spontaneous, phasic, competent and demonstrates normal competent and demonstrates normal augmentation. augmentation. T/P Trunk is compressible. T/P Trunk is compressible. PTV is compressible. PTV is compressible. RT PerV is compressible. LT PerV is compressible. Procedure This is a venous duplex using B-mode, color flow and spectral Doppler. Exam performed portable in patient room. A preliminary report was called and/or faxed to [facility]. VL/Venous Duplex US - Yfn Extrem Interpretation Summary Deep veins of the bilateral lower extremities are patent and compressible segme ntally. There is no evidence of bilateral lower extremity deep vein thrombosis. The bilateral great saphenous veins appear patent and compressible segmentally. Ordering Physician: Aleks Marshall Chi Referring Physician: Hussein Swenson MD Performed By: Mary Gonzalez RVT and Student
== END | disposition home or self-care (01) ==
LOC: CVS 08:41
PROVIDERS: PCP Family Medicine; Referring Provider Family Medicine Geriatric Medicine; Visit Provider Family Medicine Geriatric Medicine
DX: M79.89 Other specified soft tissue disorders (principal)
CPT/HCPCS: 93970

== ENCOUNTER → 2024-06-03 | Outpatient (CLI) | payer MEDICARE, BC, SELFPAY | END | disposition home or self-care (01) | LOC: CT 18:01 | PROVIDERS: PCP Family Medicine; Referring Provider Family Medicine Geriatric Medicine; Visit Provider Family Medicine Geriatric Medicine | DX: Z86.73 Personal history of transient ischemic attack (TIA), and cerebral infarction without residual deficits (principal) ==

== ENCOUNTER → 2024-06-14 | Outpatient (CLI) | payer MEDICARE, BC, SELFPAY ==
--- NOTE | 2024-06-14 10:05 | CT_ITS ---
EXAM: BRAIN/HEAD WITHOUT CONTRAST CLINICAL HISTORY: History of prior hemorrhage. COMPARISON: Comparison is made with prior study dated May 11, 2024. TECHNIQUE: Multiple axial tomographic images were obtained without intravenous contrast administration. Coronal and sagittal reconstruction were obtained as well. FINDINGS: The previously seen parenchymal hemorrhage in the high posterior right parietal occipital lobes as cleared. Moderate degree of cerebral atrophy as well as decreased attenuation in the periventricular distribution in keeping with a chronic small-vessel disease. Mild degree of cerebellar atrophy. Atherosclerotic calcification of the cavernous portions of the internal carotid arteries bilaterally. CT/Brain/Head without Contrast IMPRESSION: Chronic changes. The previously seen focus of hemorrhage in the high right parietal occipital co nvexity is not seen at this time. Reading Location: [facility]
== END | disposition home or self-care (01) ==
PROVIDERS: PCP Family Medicine; Referring Provider Family Medicine Geriatric Medicine; Visit Provider Family Medicine Geriatric Medicine
DX: I69.020 Aphasia following nontraumatic subarachnoid hemorrhage (principal)
CPT/HCPCS: 70450

== ENCOUNTER → 2024-06-21 | Outpatient (CLI) | payer MEDICARE, BC, SELFPAY ==
[2024-06-21 19:15] LABS: Hematocrit 31.8 % (37-47); Mean Corp Hgb Conc 31.4 g/dL (32-36); Mean Corpuscular Hgb 29.9 pg (27.0-32.0); Mean Corpuscular Volume 94.9 fL (81-99); Mean Platelet Vol. 9.6 fl (6.2-12.0); Platelet Count 328 K/mm3 (150-450); RBC Distribution Width CV 15.7 % (11.6-14.6); RBC Distribution Width SD 54.6 fl (35.1-43.9); RET-HE 34.5 pg (30-35); Red Blood Count 3.35 M/mm3 (4.2-5.4); Reticulocyte Count 1.34 % (0.5-1.5); White Blood Count 6.1 K/mm3 (4.4-11.0)
[2024-06-21 19:54] LABS: Anion Gap 8 (5-15); BUN 31 mg/dL (7-18); BUN/Creat Ratio 29.8 RATIO (10-20); Calcium,Total 9.6 mg/dL (8.5-10.1); Chloride 100 mmol/L (98-107); Creatinine, Serum 1.04 mg/dL (0.55-1.02); EST Glomerular Filtration Rate 53 mL/min (>60); Est Glom Filt Rate - Afr Amer 64 mL/min (>60); Ferritin 427 ng/mL (8-252); Glucose 96 mg/dL (74-106); Iron 67 ug/dL (50-170); Potassium 4.5 mmol/L (3.5-5.1); Sodium Level 138 mmol/L (136-145)
== END | disposition home or self-care (01) ==
LOC: MFPLAB 15:04
PROVIDERS: PCP Family Medicine; Referring Provider Family Medicine; Visit Provider Family Medicine
DX: D64.9 Anemia, unspecified (principal); E87.1 Hypo-osmolality and hyponatremia
CPT/HCPCS: 36415; 80048; 82728; 83540; 85027; 85045

== ENCOUNTER 2024-06-26 12:26 | Emergency (ER) | payer MEDICARE, BC, SELFPAY ==
[2024-06-26] VITALS (10 sets, daily range): BP systolic 172–239; BP diastolic 41–75; PULSE 67–75; RESP 12–18; TEMP 36.6; O2SAT 88–100; BMI 32.5
--- NOTE | 2024-06-26 12:48 | CT_ITS ---
PROCEDURE: CHEST WITHOUT CONTRAST REASON FOR EXAM: 89-year-old female, rib pain. Fell earlier today. TECHNIQUE: Chest CT without contrast. COMPARISON: Chest radiographs 08/27/2023. FINDINGS: Hardware: None. Lymph nodes: No mediastinal, hilar or axillary lymphadenopathy visualized by noncontrast examination. Heart and Vasculature: Mild cardiomegaly without pericardial effusion. Severe coronary artery, thoracic aortic and mild aortic valvular calcifications. Thoracic aorta and pulmonary arteries have normal contours; noncontrast technique limits evaluation. Lungs and Airways: The central airways are patent. Mild emphysema with bibasilar atelectasis and scattered areas of scarring. Visualization of the lung parenchyma is slightly limited by motion artifact. Pleura: No pleural effusion. No pneumothorax. Upper Abdomen: Calcification of the visualized abdominal aorta. Prior cholecystectomy. Prominent bilateral renal collecting systems. Moderate-sized hiatal hernia. Bones: Nondisplaced, age indeterminate right lateral 8th-10th rib fracture deformities. Acute, nondisplaced left 1st rib fracture. Acute, nondisplaced left anterior 3rd-8th rib fracture deformities. Chronic appearing, nondisplaced left posterior 8th-10th rib fracture deformities. Chronic appearing fracture deformities of the left 3rd-9th costovertebral joints. Acute fracture deformity of the right L1 and L2 transverse processes. Prior cement augmentation of the L2 and partially visualized L3 vertebral bodies with grossly unchanged focal kyphosis. Mild retropulsion of the L2 and L3 vertebral bodies into the spinal canal with at least moderate central canal narrowing, which is indeterminate in chronicity. Old healed left humeral head fracture deformity. Soft tissues: Subcutaneous edema within the right posterior shoulder. CT/Chest without Contrast IMPRESSION: 1. Prior cement augmentation of the L2 and L3 vertebral bodies with mild retrop ulsion of the vertebral body fragments into the spinal canal resulting in at least moderate central canal narrowing. This may be acute or chronic in age. Correlation with prior imaging recommended if available, or recommend L-spine MRI as clinically indicated. 2. Acute fracture deformities of the right L1 and L2 transverse processes. 3. Multiple bilateral acute nondisplaced rib fracture deformities, and addition al chronic appearing left rib fracture deformities 4. Mild cardiomegaly with severe coronary artery calcifications. 5. Mild emphysema and scattered areas of scarring. Dr. Bales discussed these findings with Dr. Fontaine via telephone at 2:44 pm on 06/26/24. One or more dose reduction techniques were used (e.g., Automated exposure contr ol, adjustment of the mA and/or kV according to patient size, use of iterative reconstruction technique). Reading Location: [id number]
--- NOTE | 2024-06-26 12:48 | CT_ITS ---
PROCEDURE: SPINE CERVICAL WITHOUT CONTRAS REASON FOR EXAM: 89-year-old female, neck injury. Fell today. TECHNIQUE: Cervical spine CT without contrast. COMPARISON: Cervical radiographs 02/09/2020. FINDINGS: Mild rightward curvature of the lower cervical spine. Multilevel degenerative disc disease and facet hypertrophy results in severe left neural foraminal stenosis at C5-6. Alignment: Normal. Vertebrae: No acute osseous fracture or traumatic subluxation. The vertebral body heights are maintained. Soft Tissues: No soft tissue hematoma. Severe calcifications of the bilateral carotid arteries. Heterogeneous left thyroid gland. CT/Spine Cervical without Contras IMPRESSION: 1. No acute cervical fracture or traumatic subluxation. 2. Severe left neural foraminal stenosis at C5-6. One or more dose reduction techniques were used (e.g., Automated exposure contr ol, adjustment of the mA and/or kV according to patient size, use of iterative reconstruction technique). Reading Location: [id number]
--- NOTE | 2024-06-26 12:48 | CT_ITS ---
EXAM: BRAIN/HEAD WITHOUT CONTRAST CLINICAL HISTORY: 89-year-old female, fall earlier today. Recent hemorrhagic stroke. COMPARISON: CT head 06/14/2024. TECHNIQUE: Routine CT imaging of the head without IV contrast. Additional multiplanar reformats were obtained. Dose reduction techniques were used including intermediate exposure control (AEC),iterative reconstruction technique, and/or mA and/or KV dose adjustments based on patient's size. FINDINGS: Moderate generalized cerebral and cerebellar atrophy with concordant prominence of the ventricles and subarachnoid spaces. Moderate patchy supratentorial white matter hypodensities. Small lacunar type infarct within the left caudate head. The keane-white matter interfaces are otherwise maintained. Mucosal thickening of a few right ethmoid air cells. The visualized paranasal sinuses and mastoid air cells are otherwise well opacified. Prior ocular lens replacements. No acute calvarial fracture or scalp laceration. CT/Brain/Head without Contrast IMPRESSION: Stable CT head. No acute intracranial finding. Reading Location: [id number]
--- NOTE | 2024-06-26 12:49 | EKG12_ITS ---
Test Reason : FALL Blood Pressure : */* mmHG Vent. Rate : 69 BPM Atrial Rate : 69 BPM P-R Int : 170 ms QRS Dur : 126 ms QT Int : 390 ms P-R-T Axes : 32 -21 22 degrees QTcB Int : 417 ms Normal sinus rhythm Right bundle branch block Minimal voltage criteria for LVH, may be normal variant ( R in aVL ) Septal infarct , age undetermined Abnormal ECG Confirmed by GENARO URBAN, ARELI ([id number]), video tape editor VANESA BURNETT ([id number]) on 06/28/2024 8:20:00 AM Referred By: Confirmed By: ARELI LAM MD
--- NOTE | 2024-06-26 12:54 | EX.ED.DYSGE1 ---
HPI <MIKE Sanchez - Last Filed: 06/26/24 15:43> History of Present Illness Chief Complaint: Fall Narrative Narrative: Patient is a 89-year-old female with history of hemorrhagic stroke, obesity, bilateral lower leg edema, sleep apnea who presents to the [facility] from after mechanical fall. Pay states has been constipated over the last several days. She had her granddaughter come over and try to help her break up stool. Patient states that they were successful, she went again to the closet and felt dizzy and fell on her right side. Pay states she has pain to her right foot, she also has pain to her left shoulder left ribs and she is unsure if she struck her head. Patient states she is currently off Eliquis secondary to a subarachnoid hemorrhage. Patient is currently receiving at home nursing care. Patient denies any chest pain. [facility] <MIKE Sanchez - Last Filed: 06/26/24 15:43> [facility] Medical History (Updated 06/26/24 @ 15:43 by MIKE Sanchez) History of hemorrhagic cerebrovascular accident (CVA) with residual deficit Daytime somnolence Elevated PTHrP level Venous insufficiency of both lower extremities Cerebral amyloid angiopathy Hypothyroidism Hyperlipidemia Essential (primary) hypertension Hypertension Lumbar compression fracture Closed compression fracture of L2 vertebra COPD (chronic obstructive pulmonary disease) Wrist fracture, right Shoulder fracture, left Iron deficiency anemia Osteoporosis Vitamin D deficiency Hiatal hernia Restless legs History of stress test HTN (hypertension) Scarlet fever Sleep apnea CPAP (continuous positive airway pressure) dependence Pulmonary hypertension Secondary pulmonary arterial hypertension Paroxysmal atrial fibrillation Incomplete right bundle branch block Obstructive sleep apnea Obesity Multiple fractures of ribs, left side, initial encounter for closed fracture Hypertensive emergency Pneumonia Limb weakness Difficulty balancing Thyroid disease Migraines Fatigue Arthritis Community acquired pneumonia Home Medications ?Medication ?Instructions ?Recorded ?Last Taken ?Type denosumab 60 mg/mL subcutaneous 60 mg subcut [id number] osteoporosis 10/08/19 08/24/21 History syringe (Prolia) aspirin 81 mg chewable tablet 1 tab PO DAILY Heart health 05/16/24 05/30/24 History magnesium chloride 64 mg 128 mg (2 x 64 mg) PO QHS 05/28/24 05/29/24 Rx (magnesium chloride) supplement #1 TAB tablet,delayed release (Mag 64) melatonin 3 mg capsule 3 mg PO QHS insomnia #1 cap 05/28/24 05/28/24 Rx acetaminophen 500 mg tablet 1,000 mg (2 x 500 mg) PO Q8 #0 tabs 06/08/24 Unknown Rx furosemide 40 mg tablet 40 mg PO DAILY 30 days #30 tabs 06/08/24 Unknown Rx lidocaine 5 % topical patch 1 patch topical DAILY 30 days #30 06/08/24 Unknown Rx ea losartan 100 mg tablet 100 mg PO DAILY 30 days #30 tabs 06/08/24 Unknown Rx metoprolol tartrate 50 mg tablet 50 mg PO BID 30 days #60 tabs 06/08/24 Unknown Rx tamsulosin 0.4 mg capsule 0.4 mg PO DAILY@1730 30 days #30 06/08/24 Unknown Rx caps tramadol 50 mg tablet 50 mg PO Q6H PRN PRN Pain Score 06/08/24 Unknown Rx 1-10 Or Pre Pt/Ot 7 days #28 tabs modafinil 100 mg tablet 100 mg PO DAILY 06/26/24 Unknown History pramipexole 3 mg tablet,extended 3 mg PO QHS 06/26/24 Unknown History release 24 hr warfarin 3 mg tablet 3 mg PO DAILY 06/26/24 Unknown History Allergy/AdvReac Type Severity Reaction Status Date / Time cefazolin (From Ancef) Allergy Severe Swelling Verified 05/11/24 11:51 silk Allergy Intermediate itching Verified 05/11/24 11:51 duloxetine (From Cymbalta) Allergy Unknown Hives Verified 05/11/24 11:51 shellfish derived Allergy Unknown Other Verified 05/17/24 15:53 beet (Beet) Allergy Hives Verified 05/11/24 11:51 cantaloupe Allergy Food Verified 05/11/24 11:51 Allergy eggplant Allergy Hives Verified 05/11/24 11:51 Food Allergies: Uncoded Allergy Itching Verified 05/11/24 11:51 levofloxacin (From Levaquin) Allergy Unknown Verified 05/11/24 11:51 mold Allergy NEEDS Verified 05/11/24 11:51 FOLLOW-UP Penicillins Allergy Unknown Verified 05/11/24 11:51 tomato Allergy Food Verified 05/11/24 11:51 Allergy wheat Allergy Hives Verified 05/11/24 11:51 gabapentin (From Neurontin) AdvReac Other Verified 05/11/24 11:51 meloxicam (From Mobic) AdvReac Other Verified 05/11/24 11:51 oxycodone (From OxyIR) AdvReac Nausea Verified 05/11/24 11:51 risedronate sodium (From AdvReac Other Verified 05/11/24 11:51 Actonel) Family History Other Cancer Diabetes Heart disease Surgical History H/O radiofrequency ablation (RFA) of nerve of lumbar spine History of kyphoplasty Hx of tonsillectomy H/O partial thyroidectomy History of appendectomy History of cholecystectomy Hx of bilateral cataract extraction History of thyroid surgery Hx of appendectomy History of tonsillectomy Hx of cholecystectomy History of thymectomy History of parathyroidectomy Social History adopted: No household members: none housing: [facility] number of children: 2 current occupational status: retired current occupational exposures/hazards: No pets and animals: No leisure activities: reading and other history of recent travel: Yes ([employer] in [place]) Smoking Status: Never smoker alcohol intake: never substance use type: does not use caffeine: No ROS <MIKE Sanchez - Last Filed: 06/26/24 15:43> ROS ED ROS Narrative Constitutional: Negative for fever, chills, weight loss. Positive weakness, dizziness Eyes: Negative for vision loss, vision change, double vision ENT: Negative for any sore throat, ear pain, congestion Cardiovascular: Negative for any chest pain, tightness, palpitations Respiratory: Negative for any cough, sputum production, hemoptysis, dyspnea, dyspnea on exertion, orthopnea Gastrointestinal: Negative for any abdominal pain, nausea, vomiting, diarrhea, constipation, blood in stool, blood in vomit : Negative for any urinary frequency, dysuria, retention, blood in urine Muscle skeletal: Negative for any back pain. Positive for neck pain, left shoulder pain, left rib pain, right foot pain Neurological: Negative for any headache, syncope. Positive for dizziness Skin: Negative for any rashes, itching, abrasions, lacerations Psychiatric: Negative for any depression, anxiety, stress, suicidal ideation, homicidal ideation Hematologic: Negative for any excessive bruising, easy bleeding EXAM <MIKE Sanchez - Last Filed: 06/26/24 15:43> Physical Exam Narrative Exam Narrative: Vital signs reviewed. Patient is alert and orient x 4. HEET: Head normocephalic atraumatic, TMs clear bilaterally. Posterior pharynx is clear, moist mucous membranes. Nares clear bilaterally. Pupils are equal round reactive to light, negative for any hemotympanum or septal hematoma. Neck: Supple with no lymphadenopathy or tenderness. No signs of meningismus. Cardiac: Regular rate and rhythm no murmurs gallops or rubs, equal peripheral pulses bilaterally. Respiratory: Lungs clear to auscultation bilaterally. No chest tenderness. Abdomen: Soft, nontender, nondistended. No abdominal bruit or pulsatile masses. No hepatosplenomegaly Extremities: Patient has +2 pitting edema to bilateral lower extremities, this does appear chronic. Patient does have some bruising along the right dorsal part of the foot, more towards the 3 4 and 5 metatarsals. Pain to the left shoulder. Pain to the left rib. No crepitus. Neuro: Cranial nerves II through XII intact, no focal neurological deficits. NIH stroke scale 0 Skin: Clean dry and intact with no rash, purpura, petechiae, vesicles or pustules. Backs/flank: No CVA tenderness, no midline spinal tenderness, no deformity. Psych: Normal mood and affect. No SI, HI or acute psychosis. Const Vital Signs: 06/26/24 12:27 06/26/24 12:31 06/26/24 14:26 Temperature 97.8 F Temperature Source Oral Pulse Rate 74 74 Respiratory Rate 16 18 Respiratory Effort Normal Respiratory Depth Normal Respiratory Pattern Normal Blood Pressure 198/56 H 186/75 H Blood Pressure Mean 103 112 Pulse Ox 93 99 Oxygen Delivery Method Room Air Room Air Nasal Cannula Oxygen Flow Rate (L/min) 2 06/26/24 14:30 06/26/24 14:31 Temperature Temperature Source Pulse Rate Respiratory Rate Respiratory Effort Respiratory Depth Respiratory Pattern Blood Pressure Blood Pressure Mean Pulse Ox 88 99 Oxygen Delivery Method Room Air Nasal Cannula Oxygen Flow Rate (L/min) 2 Positive well nourished and well developed General Appearance ED: well developed <Dr. Horace Horta DO - Last Filed: 06/26/24 15:36> Physical Exam Const Vital Signs: 06/26/24 12:27 06/26/24 12:31 06/26/24 14:26 Temperature 97.8 F Temperature Source Oral Pulse Rate 74 74 Respiratory Rate 16 18 Respiratory Effort Normal Respiratory Depth Normal Respiratory Pattern Normal Blood Pressure 198/56 H 186/75 H Blood Pressure Mean 103 112 Pulse Ox 93 99 Oxygen Delivery Method Room Air Room Air Nasal Cannula Oxygen Flow Rate (L/min) 2 06/26/24 14:30 06/26/24 14:31 Temperature Temperature Source Pulse Rate Respiratory Rate Respiratory Effort Respiratory Depth Respiratory Pattern Blood Pressure Blood Pressure Mean Pulse Ox 88 99 Oxygen Delivery Method Room Air Nasal Cannula Oxygen Flow Rate (L/min) 2 [facility] <MIKE Sanchez - Last Filed: 06/26/24 15:43> [facility] Lab Data Labs: Laboratory Results - last 24 hr 06/26/24 06/26/24 13:05 13:20 WBC 7.3 RBC 3.54 L Hgb 10.6 L Hct 33.6 L MCV 94.9 MCH 29.9 MCHC 31.5 L RDW Std Deviation 53.1 H RDW Coeff of Tiffani 15.2 H Plt Count 289 MPV 9.2 Immature Gran % (Auto) 1.000 H Neut % (Auto) 77.5 H Lymph % (Auto) 12.4 L Mcnairy % (Auto) 7.7 Eos % (Auto) 0.7 Baso % (Auto) 0.7 Absolute Neuts (auto) 5.7 Absolute Lymphs (auto) 0.91 Nucleated RBC % 0 Sodium 136 Potassium 3.8 Chloride 97 L Carbon Dioxide 33.0 H Anion Gap 6 BUN 18 Creatinine 0.89 Estim Creat Clear Calc 39.73 Est GFR (MDRD) Af Amer 77 Est GFR (MDRD) Non-Af 63 BUN/Creatinine Ratio 20.1 H Glucose 114 H Calcium 9.7 Troponin I High Sens 19 Urine Color Yellow Urine Clarity Clear Urine pH 6.5 Ur Specific [place] 1.010 Urine Protein 15 H Urine Glucose (UA) Normal Urine Ketones Negative Urine Occult Blood Negative Urine Nitrite Negative Urine Bilirubin Negative Urine Urobilinogen Normal Ur Leukocyte Esterase Negative Urine RBC 0 SEEN Urine WBC 0 SEEN Ur Squamous Epith Cells 0-5 SEEN Urine Bacteria 0 SEEN Urine Mucus 0 SEEN Radiography Diagnostic Testing: Clinical Impression(s) from Imaging Studies Brain CT 06/26/24 12:48 IMPRESSION: Stable CT head. No acute intracranial finding. Reading Location: [facility] Cervical Spine CT 06/26/24 12:48 IMPRESSION: 1. No acute cervical fracture or traumatic subluxation. 2. Severe left neural foraminal stenosis at C5-6. One or more dose reduction techniques were used (e.g., Automated exposure control, adjustment of the mA and/or kV according to patient size, use of iterative reconstruction technique). Reading Location: [facility] Chest CT 06/26/24 12:48 IMPRESSION: 1. Prior cement augmentation of the L2 and L3 vertebral bodies with mild retropulsion of the vertebral body fragments into the spinal canal resulting in at least moderate central canal narrowing. This may be acute or chronic in age. Correlation with prior imaging recommended if available, or recommend L-spine MRI as clinically indicated. 2. Acute fracture deformities of the right L1 and L2 transverse processes. 3. Multiple bilateral acute nondisplaced rib fracture deformities, and additional chronic appearing left rib fracture deformities 4. Mild cardiomegaly with severe coronary artery calcifications. 5. Mild emphysema and scattered areas of scarring. Dr. Bales discussed these findings with Dr. Fontaine via telephone at 2:44 pm on 06/26/24. One or more dose reduction techniques were used (e.g., Automated exposure control, adjustment of the mA and/or kV according to patient size, use of iterative reconstruction technique). Reading Location: [facility] Foot X-Ray 06/26/24 13:35 IMPRESSION: Acute fracture of the mid right 5th metatarsal. Reading Location: [facility] Pelvis X-Ray 06/26/24 13:35 IMPRESSION: NEGATIVE PELVIS Reading Location: [facility] Shoulder X-Ray 06/26/24 13:35 IMPRESSION: No obvious acute left shoulder fracture. If clinical symptoms persist, recommend follow-up nonemergent outpatient shoulder MRI for further evaluation given history of prior left shoulder fracture. Reading Location: [facility] EKG Normal sinus rhythm, right bundle branch block: Attestation: I personally reviewed and interpreted this EKG as follows: Comments: Normal sinus rhythm, right bundle branch block, rate 69 bpm, LA interval 170 ms, QRS duration 126 ms, no acute ST elevation, no acute infarct noted. Treatment and Re-Evaluation :: Differential diagnosis includes however is not limited to: Concussion, intracranial bleeding, foot fracture, shoulder fracture, rib fracture, contusions, failure to thrive, weakness, vasovagal syncope Patient appears generally well, vital signs are stable, patient is nontoxic-appearing. Presenting to the emergency department after mechanical fall secondary to dizziness. Patient received a cardiac workup including troponin, EKG. Patient received a CT scan the brain and cervical spine as well as chest, x-rays of the pelvis left shoulder and right foot will be obtained. All radiologic examinations were read, reviewed by the emergency department attending. From these reads, a plan of care will be put in place. Tylenol be given to the patient. Basic laboratory values will also be ordered. Patient's x-ray of the right foot shows acute fracture of the mid right fifth metatarsal. Placed in a postop shoe as well as Gustavo wrap. Patient's laboratory values showed a slight anemia hemoglobin 10.6, this is baseline for the patient. Patient's chemistries were unremarkable, troponin was 19 which is negative. Urinalysis was negative for any infection. Patient CT scan of the brain shows stable CTs, no acute process. Patient CT scan of cervical spine was negative for any acute fracture. X-ray of the pelvis was negative. CT scan of the chest shows prior cement augmentation of L2 and L3 vertebral bodies with mild retropulsion of the vertebral body fragments into the spinal canal resulting at least moderate central canal narrowing. Acute fracture deformities of the right L1 and L2 transverse processes. Multiple bilateral acute nondisplaced rib fracture deformities. Additional chronic appearing left rib fracture deformities. Mild emphysema. Secondary to this finding, I did reach out to [facility] for trauma transfer. The patient, she is agreement. Patient was given Tylenol, as well as IV fentanyl. I spoke with Dr. Jaime at [facility], patient will be transferred. I spoke with the patient, patient stable to transfer. <Dr. Horace Horta, DO - Last Filed: 06/26/24 15:36> [facility] MDM Narrative Medical decision making narrative: I have personally performed a face to face assessment of the patient and have reviewed the ISMA Note. I performed a substantive portion of the visit including all aspects of the following. My draper findings include: History is [patient presents to the emergency department after a fall. She apparently lives alone and her niece was over helping her with a fleets enema. She has had constipation for couple days. The niece who is a nurse perform digital rectal exam and disimpacted her manually. She then was able to have a large bowel movement afterwards. Niece then stepped out for a moment as her had come over and heard the patient fall. Patient stated that she got lightheaded and dizzy and fell. She was not unconscious. Patient had a intracranial hemorrhage little over 2 months ago and was at [facility] and then went to a rehab facility and then was admitted to our transitional care unit and was just discharged about a week ago to home. Patient is not currently anticoagulated. She is complaining of pain in her left shoulder as well as her right foot and left ribs.] Exam is [HEENT-PERRLA, EOMI. Cranial nerves II through XII grossly intact. TMs clear. Mucous membranes moist. No adenopathy. Cardiovascular-regular rate and rhythm without murmur or ectopy Lungs-clear to auscultation, chest wall stable without crepitus or subcu emphysema Abdomen-normoactive bowel sounds, soft, nontender, no rebound or rigidity, no peritoneal signs. Extremities-intact ?4. Mild tenderness over the left glenohumeral joint and left proximal humerus. No obvious deformity. No sulcus sign. Neurovascular intact distally. Right foot-patient has some ecchymosis and bruising to the dorsum of the right foot. Mild diffuse tenderness. No obvious deformity. Neurovascular intact distally. Left foot-patient has tenderness palpation over the distal third and fourth metatarsals with some ecchymosis and bruising noted. Neurovascular intact distally Medical Decison Making [patient has CT scan of the brain without contrast that was unremarkable. CT C-spine showed no fractures. Patient had a CT of the chest that showed multiple rib fractures bilaterally as well as transverse process fractures of L1 and L2. X-rays of the right foot obtained showed 1/5 metatarsal fracture. Given her multiple injuries and age it was felt patient would be best suited at a trauma center for definitive care. Case discussed with [facility] emergency department who accepted transfer to their facility.] Other additions or changes: [None] Lab Data Attestation: I reviewed the patient's lab results. Labs: Laboratory Results - last 24 hr 06/26/24 06/26/24 13:05 13:20 WBC 7.3 RBC 3.54 L Hgb 10.6 L Hct 33.6 L MCV 94.9 MCH 29.9 MCHC 31.5 L RDW Std Deviation 53.1 H RDW Coeff of Tiffani 15.2 H Plt Count 289 MPV 9.2 Immature Gran % (Auto) 1.000 H Neut % (Auto) 77.5 H Lymph % (Auto) 12.4 L Mcnairy % (Auto) 7.7 Eos % (Auto) 0.7 Baso % (Auto) 0.7 Absolute Neuts (auto) 5.7 Absolute Lymphs (auto) 0.91 Nucleated RBC % 0 Sodium 136 Potassium 3.8 Chloride 97 L Carbon Dioxide 33.0 H Anion Gap 6 BUN 18 Creatinine 0.89 Estim Creat Clear Calc 39.73 Est GFR (MDRD) Af Amer 77 Est GFR (MDRD) Non-Af 63 BUN/Creatinine Ratio 20.1 H Glucose 114 H Calcium 9.7 Troponin I High Sens 19 Urine Color Yellow Urine Clarity Clear Urine pH 6.5 Ur Specific [place] 1.010 Urine Protein 15 H Urine Glucose (UA) Normal Urine Ketones Negative Urine Occult Blood Negative Urine Nitrite Negative Urine Bilirubin Negative Urine Urobilinogen Normal Ur Leukocyte Esterase Negative Urine RBC 0 SEEN Urine WBC 0 SEEN Ur Squamous Epith Cells 0-5 SEEN Urine Bacteria 0 SEEN Urine Mucus 0 SEEN Radiography Diagnostic Testing: Clinical Impression(s) from Imaging Studies Brain CT 06/26/24 12:48 IMPRESSION: Stable CT head. No acute intracranial finding. Reading Location: [facility] Cervical Spine CT 06/26/24 12:48 IMPRESSION: 1. No acute cervical fracture or traumatic subluxation. 2. Severe left neural foraminal stenosis at C5-6. One or more dose reduction techniques were used (e.g., Automated exposure control, adjustment of the mA and/or kV according to patient size, use of iterative reconstruction technique). Reading Location: [facility] Chest CT 06/26/24 12:48 IMPRESSION: 1. Prior cement augmentation of the L2 and L3 vertebral bodies with mild retropulsion of the vertebral body fragments into the spinal canal resulting in at least moderate central canal narrowing. This may be acute or chronic in age. Correlation with prior imaging recommended if available, or recommend L-spine MRI as clinically indicated. 2. Acute fracture deformities of the right L1 and L2 transverse processes. 3. Multiple bilateral acute nondisplaced rib fracture deformities, and additional chronic appearing left rib fracture deformities 4. Mild cardiomegaly with severe coronary artery calcifications. 5. Mild emphysema and scattered areas of scarring. Dr. Bales discussed these findings with Dr. Fontaine via telephone at 2:44 pm on 06/26/24. One or more dose reduction techniques were used (e.g., Automated exposure control, adjustment of the mA and/or kV according to patient size, use of iterative reconstruction technique). Reading Location: [facility] Foot X-Ray 06/26/24 13:35 IMPRESSION: Acute fracture of the mid right 5th metatarsal. Reading Location: [facility] Pelvis X-Ray 06/26/24 13:35 IMPRESSION: NEGATIVE PELVIS Reading Location: [facility] Shoulder X-Ray 06/26/24 13:35 IMPRESSION: No obvious acute left shoulder fracture. If clinical symptoms persist, recommend follow-up nonemergent outpatient shoulder MRI for further evaluation given history of prior left shoulder fracture. Reading Location: [facility] Three-view x-rays of the right foot obtained interpreted by myself as fracture of the fifth metatarsal. 2 view x-rays of the pelvis obtained interpreted by myself as no evidence of fracture or dislocation. 4 view x-rays left shoulder obtained interpreted by myself as no evidence of fracture or dislocation. Three-view x-ray of the left foot obtained interpreted by myself as no evidence of fracture or dislocation. Radiology in agreement Discharge Plan Triage Chief Complaint: Fall ED Midlevel Provider: Jaiden Fontaine ED Provider: Horace Horta Dx/Rx/DC Orders Clinical Impression: Dizziness, Fall, Fracture of lumbar spine, Fracture of multiple ribs of both sides, Hypoxia, Fracture of fifth metatarsal bone of right foot Prescriptions: No Action Prolia 60 mg/mL syringe 60 mg SC [id number] Patient Comments: due February Rx Instructions: due in february aspirin 81 mg tablet,chewable 1 tab PO DAILY magnesium chloride [Mag 64] 64 mg Tablet,Delayed Release (Dr/Ec) 128 mg PO QHS Qty: 1 0RF melatonin 3 mg capsule 3 mg PO QHS Qty: 1 0RF furosemide 40 mg Tablet 40 mg PO DAILY 30 Days Qty: 30 0RF tramadol 50 mg Tablet 50 mg PO Q6H PRN PRN (Reason: Pain Score 1-10 Or Pre Pt/Ot) 7 Days Qty: 28 0RF acetaminophen 500 mg Tablet 1,000 mg PO Q8 Qty: 0 0RF tamsulosin 0.4 mg Capsule 0.4 mg PO DAILY@1730 30 Days Qty: 30 0RF lidocaine 5 % Adhesive Patch,Medicated 1 patch topical DAILY 30 Days Qty: 30 0RF metoprolol tartrate 50 mg Tablet 50 mg PO BID 30 Days Qty: 60 0RF losartan 100 mg Tablet 100 mg PO DAILY 30 Days Qty: 30 0RF warfarin 3 mg tablet 3 mg PO DAILY modafinil 100 mg tablet 100 mg PO DAILY pramipexole 3 mg tablet extended release 24 hr 3 mg PO QHS Primary Care Provider: Hussein Swenson Referrals: Hussein Swenson MD [Primary Care Provider] - Print Language: Estonian Disposition Disposition: Acute Care Hospital Discharge Location: [facility]
[2024-06-26 13:13] LABS: Absolute Lymphocyte Count 0.91 X10^3/uL (0.83-4.51); Absolute Neutrophil Count 5.7 X10^3/uL (2.0-7.7); Basophil# 0.05 X10^3/uL; Basophil% 0.7 % (0-1); Eosinophil# 0.05 X10^3/uL; Eosinophils% 0.7 % (0-5); Hematocrit 33.6 % (37-47); Hemoglobin 10.6 g/dL (12.0-15.0); Lymphocyte # 0.91 X10^3/ul (0.83-4.51); Lymphocyte % 12.4 % (19-41); Mean Corp Hgb Conc 31.5 g/dL (32-36); Mean Corpuscular Hgb 29.9 pg (27.0-32.0); Mean Corpuscular Volume 94.9 fL (81-99); Mean Platelet Vol. 9.2 fl (6.2-12.0); Monocyte# 0.56 X10^3/uL; Monocyte% 7.7 % (0-10); NRBC Flagged by Analyzer 0 % (0-5); Neutrophil # 5.67 X10^3/uL (2.7-7.7); Neutrophil % 77.5 % (47-70); Platelet Count 289 K/mm3 (150-450); RBC Distribution Width CV 15.2 % (11.6-14.6); RBC Distribution Width SD 53.1 fl (35.1-43.9); Red Blood Count 3.54 M/mm3 (4.2-5.4); White Blood Count 7.3 K/mm3 (4.4-11.0)
[2024-06-26] MEDS: Acetaminophen 500 MG Tablet 1000 MG PO (13:14)
[2024-06-26 13:23] LABS: Bacteria 0 SEEN /hpf (None Seen); Mucous, Urine 0 SEEN /hpf (<or=2+); White Blood Cells 0 SEEN /hpf (0-5)
[2024-06-26 13:25] LABS: Color, Urine Yellow (Yellow); Glucose, Dipstick Normal (Normal); Ketone-Dipstick Negative (Negative); Leukocyte Esterase-Dipstick Negative /ul (Negative); Nitrite-Dipstick Negative (Negative); Occult Blood-Urine Negative /ul (Negative); Protein-Dipstick 15 mg/dl (Negative); Urine Bilirubin Dipstick Negative (Negative); Urine Clarity Clear (Clear); Urine Urobilinogen Normal (Normal); Urine pH 6.5 (5.0 - 8.0)
[2024-06-26 13:32] LABS: Squamous Epithelial Cells - UA 0-5 SEEN /hpf (5-10)
--- NOTE | 2024-06-26 13:35 | RAD_ITS ---
PROCEDURE: FOOT MIN 3 VIEWS REASON FOR EXAM: 89-year-old female, fall. TECHNIQUE: 3 views of the right foot COMPARISON: None. FINDINGS: RIGHT FOOT: Acute, mildly comminuted and angulated fracture of the mid 5th metatarsal. No intra-articular joint involvement. Diffuse osseous demineralization. No suspicious bone lesion. Normal alignment. Mild lower ankle edema. RAD/Foot min 3 Views IMPRESSION: Acute fracture of the mid right 5th metatarsal. Reading Location: [id number]
--- NOTE | 2024-06-26 13:35 | RAD_ITS ---
PROCEDURE: PELVIS 1 OR 2 VIEWS REASON FOR EXAM: 89-year-old female, fall. TECHNIQUE: 2 view(s) of the pelvis. COMPARISON: None FINDINGS: Moderate bilateral hip arthrosis, [id number]. Diffuse osseous demineralization. No obvious acute fracture. No suspicious bone lesion. Normal alignment at the hips and sacroiliac joints. Soft tissues are unremarkable. RAD/Pelvis 1 or 2 Views IMPRESSION: NEGATIVE PELVIS Reading Location: [id number]
--- NOTE | 2024-06-26 13:35 | RAD_ITS ---
PROCEDURE: SHOULDER MIN 4 VIEWS REASON FOR EXAM: 89-year-old female, fall, left shoulder pain. TECHNIQUE: Four views of the left shoulder COMPARISON: Same day chest CT. FINDINGS: LEFT SHOULDER: Chronic appearing left humeral head fracture deformity. Diffuse osseous demineralization. No obvious acute fracture.Normal alignment of the acromioclavicular and glenohumeral joints. RAD/Shoulder min 2 Views IMPRESSION: No obvious acute left shoulder fracture. If clinical symptoms persist, recomme nd follow-up nonemergent outpatient shoulder MRI for further evaluation given history of prior left shoulder fracture. Reading Location: [id number]
[2024-06-26 13:52] LABS: Anion Gap 6 (5-15); BUN 18 mg/dL (7-18); BUN/Creat Ratio 20.1 RATIO (10-20); Calcium,Total 9.7 mg/dL (8.5-10.1); Chloride 97 mmol/L (98-107); Creatinine, Serum 0.89 mg/dL (0.55-1.02); EST Glomerular Filtration Rate 63 mL/min (>60); Est Glom Filt Rate - Afr Amer 77 mL/min (>60); Estimated Creatinine Clearance 39.73 ml/min; Glucose 114 mg/dL (74-106); Potassium 3.8 mmol/L (3.5-5.1); Sodium Level 136 mmol/L (136-145); Troponin-I HS 19 pg/mL (3.0-54.0)
[2024-06-26 14:07] LABS: Red Blood Cells-Urine 0 SEEN /hpf (0-5)
--- NOTE | 2024-06-26 14:33 | RAD_ITS ---
PROCEDURE: FOOT MIN 3 VIEWS REASON FOR EXAM: Injury TECHNIQUE: Three views of the left foot COMPARISON: None. FINDINGS: No acute fracture or dislocation.No significant degenerative changes. Diffuse soft tissue edema is present. RAD/Foot min 3 Views IMPRESSION: No acute fracture. Reading Location: [facility]
--- NOTE | 2024-06-26 15:39 | ED.RN ---
ACCPTED AT [facility] AT 1530. RIDE WILL BE HERE AT [id number]
[2024-06-26] MEDS: fentaNYL 100 MCG/2 ML Ampul 25 MCG IV (15:50)
[2024-06-26] MEDS: Ondansetron 4 MG/2 ML Vial IV (15:50)
--- NOTE | 2024-06-26 16:24 | ED.RN ---
REPORT CALLED TO [facility] ED NURSE, MARTELL. NO FURTHER QUESTIONS BY THE NURSE AT THIS TIME.
[2024-06-26] MEDS: fentaNYL 100 MCG/2 ML Ampul 50 MCG IV (16:58)
--- NOTE | 2024-06-26 17:51 | ED.RN ---
I CALLED PHYSICIANS BACK. THEY SAID THE 1800 CREW WILL BE PICKING HER UP, SO THEY WILL BE HERE BETWEEN [phone]
== END 2024-06-26 18:56 | disposition short-term general hospital (02) ==
PROVIDERS: Nurse Practitioner; Emergency Provider Emergency Medicine; PCP Family Medicine; Visit Provider Emergency Medicine
DX: S22.43XA Multiple fractures of ribs, bilateral, initial encounter for closed fracture (principal); S32.009A Unspecified fracture of unspecified lumbar vertebra, initial encounter for closed fracture; I27.21 Secondary pulmonary arterial hypertension; J44.9 Chronic obstructive pulmonary disease, unspecified; I48.0 Paroxysmal atrial fibrillation; S92.351A Displaced fracture of fifth metatarsal bone, right foot, initial encounter for closed fracture; M25.512 Pain in left shoulder; W19.XXXA Unspecified fall, initial encounter; E78.5 Hyperlipidemia, unspecified; R09.02 Hypoxemia; I10 Essential (primary) hypertension; R42 Dizziness and giddiness; R60.0 Localized edema; E66.9 Obesity, unspecified; Z79.82 Long term (current) use of aspirin; Z79.01 Long term (current) use of anticoagulants; Z79.899 Other long term (current) drug therapy; Z86.73 Personal history of transient ischemic attack (TIA), and cerebral infarction without residual deficits
CPT/HCPCS: 70450; 71250; 72125; 72170; 73030; 73630; 80048; 81001; 84484; 85025; 93005; 96374; 96375; 96376; 99285; A4216; J2405

== ENCOUNTER 2024-06-30 18:43 | Inpatient (IN) | payer MEDICARE, BC, SELFPAY ==
--- NOTE | 2024-06-30 20:14 | HP.PCM_ITS ---
[facility] - General General Date of Admission: 06/30/24 Date of Service: 07/01/24 Chief Complaint: Here for rehabilitation. [facility] Narrative JOYCE SOLOMON, is a 89 Female who presents with followin06/26/2024 Admit to [facility] for ground level fall. Multiple recent falls, anticoagulation for atrial fibrillation held. Left chest tender, bilateral lower extremity edema, tender to touch, chronic. Consult neurosurgery for L2, L3 retropulsion of vertebral body into spinal canal with moderate canal narrowing. Hold anticoagulation for atrial fibrillation. Pulmonary hygiene for multiple rib fractures. Hemoglobin 9.5, transfuse if hemoglobin < 7.0. 06/28/2024 MRI lumbar spine showed no compromise or neural compression. Orthopedics recommended no surgery, LSO brace for comfort. PT/OT. 06/29/2024 No acute events overnight. Pain controlled, oxygen 2 liters per nasal cannula. PT/OT. WBAT right lower extremity, post op shoe, no surgery for right 5th metatarsal fracture. 06/30/2024 PT/OT for SNF. 06/30/2024 Admit to TCU with debility, here for rehabilitation, strengthening, prior to discharge home alone. [facility] Medical History (Updated 06/30/24 @ 20:[address] Aleks Marshall MD) Cerebral amyloid angiopathy Essential (primary) hypertension Osteoporosis History of hemorrhagic cerebrovascular accident (CVA) with residual deficit Daytime somnolence Elevated PTHrP level Venous insufficiency of both lower extremities Hypothyroidism Hyperlipidemia Hypertension Lumbar compression fracture Closed compression fracture of L2 vertebra COPD (chronic obstructive pulmonary disease) Wrist fracture, right Shoulder fracture, left Iron deficiency anemia Vitamin D deficiency Hiatal hernia Restless legs History of stress test HTN (hypertension) Scarlet fever Sleep apnea CPAP (continuous positive airway pressure) dependence Pulmonary hypertension Secondary pulmonary arterial hypertension Paroxysmal atrial fibrillation Incomplete right bundle branch block Obstructive sleep apnea Obesity Multiple fractures of ribs, left side, initial encounter for closed fracture Hypertensive emergency Pneumonia Limb weakness Difficulty balancing Thyroid disease Migraines Fatigue Arthritis Community acquired pneumonia Home Medications ?Medication ?Instructions ?Recorded ?Last Taken ?Type denosumab 60 mg/mL subcutaneous 60 mg subcut [id number] osteoporosis 10/08/19 08/24/21 History syringe (Prolia) Held on 06/30/24. Instructions: hold aspirin 81 mg chewable tablet 1 tab PO DAILY Heart hea lth 05/16/24 05/30/24 History magnesium chloride 64 mg 128 mg (2 x 64 mg) PO QHS 05/29/24 Rx (magnesium chloride) supplement #1 TAB tablet,delayed release (Mag 64) Held on 06/30/24. Instructions: hold melatonin 3 mg capsule 3 mg PO QHS insomnia #1 cap 05/28/24 05/28/24 Rx furosemide 40 mg tablet 40 mg PO DAILY edema 30 days #30 06/08/24 Unknown Rx tabs lidocaine 5 % topical patch 1 patch topical DAILY pain 30 days 06/08/24 Unknown Rx Held on 06/30/24. #30 ea Instructions: hold metoprolol tartrate 50 mg tablet 50 mg PO BID blood pr essure 30 06/08/24 Unknown Rx days #60 tabs tamsulosin 0.4 mg capsule 0.4 mg PO DAILY@1730 urinary 06/08/24 Unknown Rx retention 30 days #30 caps tramadol 50 mg tablet 50 mg PO Q6H PRN PRN Pain Sc ore 06/08/24 Unknown Rx 1-10 Or Pre Pt/Ot 7 days #28 tabs modafinil 100 mg tablet 100 mg PO DAILY sleep apnea 06/26/24 Unknown History pramipexole 3 mg tablet,extended 3 mg PO QHS Restless legs 06/26/24 Unknown History release 24 hr warfarin 3 mg tablet 3 mg PO DAILY blood thinner 06/26/24 Unknown History Held on 06/30/24. Instructions: hold acetaminophen 500 mg tablet 650 mg PO Q4H PRN pain Unknown History losartan 100 mg tablet 50 mg PO DAILY blood pressur e 06/30/24 Unknown History magnesium oxide 400 mg (241.3 mg 400 mg PO DAILY suppl ement 06/30/24 Unknown History magnesium) tablet methocarbamol 500 mg tablet 500 mg PO TID muscle spasm s 06/30/24 Unknown History polyethylene glycol 3350 17 17 g PO DAILY stool soften er 06/30/24 Unknown History gram/dose oral powder sennosides 8.6 mg-docusate sodium 1 tab-cap PO BID sto ol softener 06/30/24 Unknown History 50 mg tablet (Senna with Docusate Sodium) Allergy/AdvReac Type Severity Reaction Status Date / Time cefazolin (From [facility]) Allergy Severe Swelling Verified 05/11/24 11:51 silk Allergy Intermediate itching Verified 05/11/24 11:51 duloxetine (From Cymbalta) Allergy Unknown Hives Verified 05/11/24 11:51 shellfish derived Allergy Unknown Other Verified 05/17/24 15:53 beet (Beet) Allergy Hives Verified 05/11/24 11:51 cantaloupe Allergy Food Verified 05/11/24 11:51 Allergy eggplant Allergy Hives Verified 05/11/24 11:51 Food Allergies: Uncoded Allergy Itching Verified 05/11/24 11:51 levofloxacin (From Levaquin) Allergy Unknown Verified 05/11/24 11:51 mold Allergy NEEDS Verified 05/11/24 11:51 FOLLOW-UP Penicillins Allergy Unknown Verified 05/11/24 11:51 tomato Allergy Food Verified 05/11/24 11:51 Allergy wheat Allergy Hives Verified 05/11/24 11:51 gabapentin (From Neurontin) AdvReac Other Verified 05/11/24 11:51 meloxicam (From Mobic) AdvReac Other Verified 05/11/24 11:51 oxycodone (From OxyIR) AdvReac Nausea Verified 05/11/24 11:51 risedronate sodium (From AdvReac Other Verified 05/11/24 11:51 Actonel) Family History Other Cancer Diabetes Heart disease Surgical History H/O radiofrequency ablation (RFA) of nerve of lumbar spine History of kyphoplasty Hx of tonsillectomy H/O partial thyroidectomy History of appendectomy History of cholecystectomy Hx of bilateral cataract extraction History of thyroid surgery Hx of appendectomy History of tonsillectomy Hx of cholecystectomy History of thymectomy History of parathyroidectomy Social History adopted: No household members: none housing: condominium number of children: 2 current occupational status: retired current occupational exposures/hazards: No pets and animals: No leisure activities: reading and other history of recent travel: Yes (concert in [place]) Smoking Status: Never smoker alcohol intake: never substance use type: does not use caffeine: No ROS Constitutional Constitutional: Reports weakness; Denies chills, fever(s) or weight gain ENT HEENT: Denies headache(s), nasal congestion or nasal discharge Cardiovascular Cardiovascular: Denies chest pain or palpitations Respiratory/Chest Respiratory/Chest: Denies cough, excessive phlegm production or shortness of breath with exertion Gastrointestinal Gastrointestinal: Denies abdominal pain, nausea or vomiting Genitourinary Genitourinary: Denies dysuria Musculoskeletal Musculoskeletal: Denies joint pain or joint swelling Integumentary Integumentary: Denies rash or wounds Neurologic Neurologic: Denies focal weakness, numbness or tingling Psychiatric Psychiatric: Denies anxiety, auditory hallucinations, depression, homicidal ideation or suicidal ideation Physical Exam Const alert General Appearance: cooperative HEENT normocephalic Eyes PERRL and EOMs intact bilaterally Neck supple, no JVD and no carotid bruits Resp normal respiratory effort, normal air movement and clear to auscultation bilaterally Cardio regular rate and regular rhythm GI normal to inspection, nondistended, normoactive bowel sounds, non-tender and non-distended Extremity normal capillary refill General Extremity: Negative for edema Skin no rashes or lesions noted General Skin Exam: no breakdown Psych affect normal Appearance: appropriate Results Lab / Micro Data 07/01/24 05:27 07/01/24 05:27 Assessment & Plan Assessment/Plan (1) Debility: (2) Multiple falls: (3) Multiple rib fractures: (4) Compression fracture of L2: (5) Compression fracture of L3 vertebra: (6) Fracture of fifth metatarsal bone of right foot: (7) Multiple transverse process fractures: (8) Subarachnoid hemorrhage: (9) Cerebral amyloid angiopathy: (10) Restless leg syndrome: (11) Obstructive sleep apnea: (12) Afib: (13) Essential (primary) hypertension: (14) Hypomagnesemia: (15) Insomnia: (16) Urine retention: (17) Osteoporosis: QUALIFIERS: Osteoporosis type: age-related Presence of current pathological fracture: without current pathological fracture Qualified Code(s): M81.0 - Age-related osteoporosis without current pathological fracture PLAN: Plan 89 year old female with below past medical history hospitalized for fall, multiple rib fractures, right 5th metatarsal fracture, compression fracture of L2, L3, right transverse process fracture of L1, L2, treated nonsurgically, admitted to TCU with debility, here for rehabilitation, strengthening, prior to disposition determination. * Debility - PT/OT. * Pain - Tylenol 1000mg q8, Tramadol 50mg q6 prn pain (1-10), Lidoderm 1 patch td daily. * Bowel - Miralax 17gm daily, Senna/colace 1 tablet bid. * Adult immunization - Administer pneumonia vaccine, covid vaccine, flu vaccine as appropriate. * DVT prophylaxis - Add SCD's. * Hemorrhagic stroke - Aspirin 81mg daily. * Edema - Furosemide 40mg daily. * Hypertension - Metoprolol 50mg bid, Losartan 50mg daily. * Hypomagnesemia - Magnesium chloride 128mg daily. * Insomnia - Melatonin 3mg qhs. * Muscle spasm - Robaxin 500mg tid. * NEL/somnolence - Provigil 100mg daily. * Restless leg syndrome - Mirapex 3mg qhs. * Urinary retention - Tamsulosin 0.4mg daily.
[2024-06-30 20:38] VITALS: BP 177/66; PULSE 77; RESP 18; TEMP 36.1; O2SAT 93; BMI 32.7
[2024-06-30] MEDS: Acetaminophen 500 MG Tablet 1000 MG PO (21:53)
[2024-06-30 21:54] VITALS: BP 187/59; PULSE 78
[2024-06-30] MEDS: Senna/Docusate Sodium 1 Tablet PO (21:54)
[2024-06-30] MEDS: MELATONIN 3 MG TABLET PO (21:54)
[2024-06-30] MEDS: Metoprolol Tartrate 50 MG Tablet PO (21:54)
[2024-06-30] MEDS: Pramipexole Di-HCl 1 MG Tablet 3 MG PO (21:54)
[2024-06-30] MEDS: traMADol 50 MG Tablet PO (21:54)
[2024-06-30] MEDS: Methocarbamol 500 MG Tablet PO (21:54)
[2024-06-30 22:00] VITALS: PULSE 78; RESP 17; O2SAT 96
[2024-06-30 22:09] VITALS: BP 187/59; PULSE 78
[2024-07-01] MEDS: Methocarbamol 500 MG Tablet PO ×3 (05:31→21:48)
[2024-07-01] MEDS: Acetaminophen 500 MG Tablet 1000 MG PO ×3 (05:31→21:49)
[2024-07-01 05:34] VITALS: BP 187/68; PULSE 59
[2024-07-01 05:35] VITALS: PULSE 59; RESP 18
[2024-07-01 05:46] LABS: Absolute Lymphocyte Count 1.78 X10^3/uL (0.83-4.51); Absolute Neutrophil Count 3.3 X10^3/uL (2.0-7.7); Basophil# 0.08 X10^3/uL; Basophil% 1.3 % (0-1); Eosinophil# 0.34 X10^3/uL; Eosinophils% 5.6 % (0-5); Hematocrit 33.4 % (37-47); Hemoglobin 10.5 g/dL (12.0-15.0); Lymphocyte # 1.78 X10^3/ul (0.83-4.51); Lymphocyte % 29.2 % (19-41); Mean Corp Hgb Conc 31.4 g/dL (32-36); Mean Corpuscular Hgb 29.6 pg (27.0-32.0); Mean Corpuscular Volume 94.1 fL (81-99); Mean Platelet Vol. 9.5 fl (6.2-12.0); Monocyte# 0.51 X10^3/uL; Monocyte% 8.4 % (0-10); NRBC Flagged by Analyzer 0 % (0-5); Neutrophil # 3.33 X10^3/uL (2.7-7.7); Neutrophil % 54.7 % (47-70); Platelet Count 357 K/mm3 (150-450); RBC Distribution Width CV 14.4 % (11.6-14.6); RBC Distribution Width SD 50.5 fl (35.1-43.9); Red Blood Count 3.55 M/mm3 (4.2-5.4); White Blood Count 6.1 K/mm3 (4.4-11.0)
--- NOTE | 2024-07-01 06:01 | NURSING ---
Addendum entered by Mary Marrufo 07/01/24 07:31: Rechecked Blood Pressure, decreased to 165/55, semi-fowlers, left forearm. Heart rate 60, regular. Original Note: Patient's blood pressure elevated this AM, refer to worklist. Patient reports feeling dizzy and shakey at times, believes it could be elevated d/t anxiety and stress per situation. Consulted Dr. Marshall via telephone, new order to increase cozaar to 100mg daily, give first dose now. Telephone order read back and verified. Will check BP 1 hour after med administration.
[2024-07-01 06:12] LABS: Anion Gap 8 (5-15); BUN 16 mg/dL (7-18); BUN/Creat Ratio 22.4 RATIO (10-20); Calcium,Total 9.4 mg/dL (8.5-10.1); Chloride 100 mmol/L (98-107); Creatinine, Serum 0.72 mg/dL (0.55-1.02); EST Glomerular Filtration Rate 82 mL/min (>60); Est Glom Filt Rate - Afr Amer 99 mL/min (>60); Estimated Creatinine Clearance 44.27 ml/min; Glucose 102 mg/dL (74-106); Potassium 4.4 mmol/L (3.5-5.1); Sodium Level 137 mmol/L (136-145)
[2024-07-01] MEDS: Losartan Potassium 100 MG Tablet PO (06:34)
[2024-07-01 07:29] VITALS: BP 165/55; PULSE 60
[2024-07-01 09:28] VITALS: PULSE 60
[2024-07-01] MEDS: Tuberculin,Purif.prot.deriv. 50 TU/ML Vial 0.1 ML ID (09:28)
[2024-07-01] MEDS: Metoprolol Tartrate 50 MG Tablet PO ×2 (09:28→21:47)
[2024-07-01] MEDS: Magnesium Chloride 64 MG Delay Rel.Tablet 128 MG PO (09:28)
[2024-07-01] MEDS: Furosemide 40 MG Tablet PO (09:28)
[2024-07-01] MEDS: Aspirin 81 MG TAB.CHEW PO (09:29)
[2024-07-01] MEDS: Senna/Docusate Sodium 1 Tablet PO ×2 (09:29→21:49)
[2024-07-01] MEDS: Polyethylene Glycol 3350 17 GM PACKET PO (09:29)
[2024-07-01] MEDS: Lidocaine 5% Patch 1 PATCH TOPICAL (09:29)
[2024-07-01] MEDS: Modafinil 200 MG Tablet 100 MG PO (09:35)
--- NOTE | 2024-07-01 14:29 | PHA.CONS_ITS ---
TCU RX Drug Regimen Review Subjective/Objective Subjective/Objective Subjective: 89 YOF admitted to TCU 06/30/24 s/p hospitalization at an outside facility secondary to a fall. Admitted to TCU for rehabilitation and strengthening prior to discharge home where she resides alone. Objective: Allergies cefazolin (From Ancef) Allergy (Severe, Verified 05/11/24 11:51) Swelling Thoat and mouth swelling silk Allergy (Intermediate, Verified 05/11/24 11:51) itching duloxetine (From Cymbalta) Allergy (Unknown, Verified 05/11/24 11:51) Hives shellfish derived Allergy (Unknown, Verified 05/17/24 15:53) Other Throat irritation beet (Beet) Allergy (Verified 05/11/24 11:51) Hives cantaloupe Allergy (Verified 05/11/24 11:51) Food Allergy HIVES eggplant Allergy (Verified 05/11/24 11:51) Hives Food Allergies: Uncoded Allergy (Verified 05/11/24 11:51) Itching fermented foods, concentrates levofloxacin (From Levaquin) Allergy (Verified 05/11/24 11:51) Unknown mold Allergy (Verified 05/11/24 11:51) NEEDS FOLLOW-UP Penicillins Allergy (Verified 05/11/24 11:51) Unknown tomato Allergy (Verified 05/11/24 11:51) Food Allergy wheat Allergy (Verified 05/11/24 11:51) Hives gabapentin (From Neurontin) Adverse Reaction (Verified 05/11/24 11:51) Other meloxicam (From Mobic) Adverse Reaction (Verified 05/11/24 11:51) Other oxycodone (From OxyIR) Adverse Reaction (Verified 05/11/24 11:51) Nausea risedronate sodium (From Actonel) Adverse Reaction (Verified 05/11/24 11:51) Other Current Medications Generic Name Dose Route Start Last Admin Trade Name Freq PRN Reason Stop Dose Admin Acetaminophen 1,000 mg 06/30/24 22:00 07/01/24 14:06 Acetaminophen 500 Mg Tablet PO 1,000 mg Q8 BATSHEVA Administration Aspirin 81 mg 07/01/24 08:00 07/01/24 09:29 Aspirin 81 Mg Tab.Chew PO 81 mg BREAKFAST BATSHEVA Administration Furosemide 40 mg 07/01/24 10:00 07/01/24 09:28 Furosemide 40 Mg Tablet PO 40 mg DAILY [facility] Administration Protocol Lidocaine 1 patch 07/01/24 10:00 07/01/24 09:29 Lidocaine 5% Patch TOPICAL 1 patch DAILY [facility] Administration Losartan Potassium 100 mg 07/01/24 10:00 07/01/24 06:34 Losartan Potassium 100 Mg Tablet PO 100 mg DAILY [facility] Administration Protocol Magnesium Chloride 128 mg 07/01/24 10:00 07/01/24 09:28 Magnesium Chloride 64 Mg Delay Rel.Tablet PO 128 mg DAILY [facility] Administration Melatonin 3 mg 06/30/24 22:00 06/30/24 21:54 Melatonin 3 Mg Tablet PO 3 mg QHS [facility] Administration Methocarbamol 500 mg 06/30/24 22:00 07/01/24 14:06 Methocarbamol 500 Mg Tablet PO 500 mg TID [facility] Administration Metoprolol Tartrate 50 mg 06/30/24 22:00 07/01/24 09:28 Metoprolol Tartrate 50 Mg Tablet PO 50 mg BID [facility] Administration Protocol Modafinil 100 mg 07/02/24 10:00 Modafinil 200 Mg Tablet PO DAILY [facility] Polyethylene Glycol 17 gm 07/01/24 10:00 07/01/24 09:29 Polyethylene Glycol 3350 17 Gm Packet PO 17 gm DAILY [facility] Administration Pramipexole Dihydrochloride 3 mg 06/30/24 22:00 06/30/24 21:54 Pramipexole Di-Hcl 1 Mg Tablet PO 3 mg QHS [facility] Administration Senna/Docusate Sodium 1 tablet 06/30/24 22:00 07/01/24 09:29 Senna/Docusate Sodium 1 Tablet PO 1 tablet BID [facility] Administration Tamsulosin HCl 0.4 mg 07/01/24 17:30 Tamsulosin Hcl 0.4 Mg Capsule PO DAILY@1730 [facility] Tramadol HCl 50 mg 06/30/24 19:54 06/30/24 21:54 Tramadol 50 Mg Tablet PO 50 mg Q6H PRN PRN Administration Pain Score 1-10 Or Pre Pt/Ot Tuberculin PPD 0.1 ml 07/08/24 10:00 Tuberculin,Purif.Prot.Deriv. 50 Tu/Ml Vial ID 07/08/24 10:01 X1 ONE Problem List Osteoporosis (Acute) Essential (primary) hypertension (Acute) Cerebral amyloid angiopathy (Acute) Multiple transverse process fractures (Acute) Compression fracture of L2 (Acute) Multiple rib fractures (Acute) Multiple falls (Acute) Fracture of fifth metatarsal bone of right foot (Acute) Insomnia (Acute) Subarachnoid hemorrhage (Acute) Debility (Acute) Restless leg syndrome (Chronic) Obstructive sleep apnea (Acute) Vital Signs Temp Pulse Resp BP Pulse Ox O2 Del Method 97.0 F L 60 18 165/55 H 96 Room Air 06/30/24 20:38 07/01/24 09:28 07/01/24 05:35 07/01/24 07:29 06/30/24 22:00 07/01/24 05:35 Oxygen Delivery Method Room Air Weight: 75.977 kg Body Mass Index (BMI) 32.7 Sodium 137 mmol/L (136-145) 07/01/24 05:27 Potassium 4.4 mmol/L (3.5-5.1) 07/01/24 05:27 Chloride 100 mmol/L (98-107) 07/01/24 05:27 Carbon Dioxide 29.0 mmol/L (21.0-32.0) 07/01/24 05:27 Anion Gap 8 (5-15) 07/01/24 05:27 BUN 16 mg/dL (7-18) 07/01/24 05:27 Creatinine 0.72 mg/dL (0.55-1.02) 07/01/24 05:27 Est GFR (MDRD) Af Amer 99 mL/min (>60) 07/01/24 05:27 Est GFR (MDRD) Non-Af 82 mL/min (>60) 07/01/24 05:27 BUN/Creatinine Ratio 22.4 RATIO (10-20) H 07/01/24 05:27 Glucose 102 mg/dL (74-106) 07/01/24 05:27 Assessment/Plan: 1. Pain: Tylenol 1000mg PO Q8h, Lidocaine patch topically Daily, Tramadol 50mg PO Q6h PRN Pain 1-10. Please continue to monitor for S/S increased/decreased pain, PRN medication usage, local site irritation/redness. - The patient has used 1 dose of PRN tramadol for pain rated 8/10. Post- medication pain rated 0/10. Pain appears controlled at this time. 2. Hypertension/ Cardiovascular: Losartan 100mg PO daily, Lopressor 50mg PO BID, Aspirin 81mg PO Daily. Please continue to monitor BP (last 165/55), pulse (last 60), lower extremity swelling, S/S bleeding/bruising, Hgb (last 10.5 on 07/01), platelets (last 357 on 07/01). 3. Fluid Retention: Lasix 40mg PO Daily. Please continue to monitor I/O's, potassium (last 4.4 on 07/01), renal function (CrCl 44 mL/min on 07/02), BP (last 165/55). 4. Urinary retention: Flomax 0.4mg PO Daily. Please continue to monitor for urinary retention, S/S UTI, hypotension (BP 165/55). 5. Muscle Spasm: Robaxin 500mg PO TID. Please continue to monitor for oversedation, dizziness. This is a Beer's Criteria medication which can increase the risk of fractures in the elderly population. 6. RLS: Pramipexole 3mg PO QHS. Please continue to monitor for confusion, dizziness, drowsiness, orthostatic hypotension. 7. Insomnia: Melatonin 3mg PO QHS. Please continue to monitor for medication effectiveness, oversedation. Please consider giving medication at least 2 hours prior to desired bedtime for maximal effectiveness. 8. NEL/somnolence: Modafinil 100mg PO daily. Please continue to monitor for headache, nausea, constipation. 9. General Wellness: Magnesium chloride 128mg PO Daily. 10. Bowel: Miralax 17g PO Daily, Senna/docusate 1 tab PO BID. Please continue to monitor for increased/decreased constipation and/or diarrhea. - the patient has not had a documented bowel movement, however admission was <24hrs ago. If the patient does not have a bowel movement in the next 48-72hrs, please consider ordering a PRN medication for additional agent if clinically indicated. Psychotropic medications - The patient is not currently on any psychotropic medications at time of medication list review. Medical chart and medication regimen reviewed. The following medication irregularities or issues were identified: - No medication irregularities identified Date Date of Note: 07/01/24
--- NOTE | 2024-07-01 14:56 | CHAPLAIN ---
Type of Pastoral Visit _x__ Initial Visit ___ Follow-up Visit ___ On-call Visit ___ General Patient Visit ___ Spiritual Assessment ___ Family Conference ___ Bereavement ___ Rapid Response ___ Code Blue ___ Other (describe below) Pastoral Care Referral From _x__ Patient ___ Family ___ Nurse ___ Physician ___ Geothermal Electrical Engineer ___ Lead Teller ___ Other (describe below) Sacrament/Intervention _x__ Active listening ___ Anointing ___ Hinduism ___ Bereavement ___ Communion ___ Beth exploration ___ _x__ Life review _x__ Prayer ___ Reconciliation ___ Sacrament of Sick _x__ Supportive presence ___ Wedding ___ Other (describe below) Pastoral Comments patient was discharged from hospital earlier this month but had another bad fall and is back to TCU for rehab and recovery; pt is welcoming; pt admits that this was a bad fall, and I really did it; pt expresses determination to get back home and to remain independent; pt has good beth in God and uses her spiritual resources for encouragement; pt welcomes presence and prayer
--- NOTE | 2024-07-01 16:13 | CASEMGMT ---
Social Work SW met with patient to complete initial assessment. Pt known to this worker from previous stay. Verified contacts and code status. Educated to Medicare benefit and admitting on day . Encouraged to contact secondary insurance to ensure copay coverage. Pt's goal is to return home alone. SW will continue to follow for DC planning. Karolina Desir MSW PRESSER MACHINE
[2024-07-01] MEDS: Tamsulosin HCl 0.4 MG Capsule PO (17:21)
[2024-07-01 21:44] VITALS: BP 170/57; PULSE 75
[2024-07-01 21:47] VITALS: BP 170/57; PULSE 75
[2024-07-01] MEDS: Pramipexole Di-HCl 1 MG Tablet 3 MG PO (21:48)
[2024-07-01] MEDS: MELATONIN 3 MG TABLET PO (21:48)
[2024-07-01] MEDS: traMADol 50 MG Tablet PO (21:52)
[2024-07-02] MEDS: Methocarbamol 500 MG Tablet PO ×3 (05:44→21:51)
[2024-07-02] MEDS: Acetaminophen 500 MG Tablet 1000 MG PO ×3 (05:44→21:53)
[2024-07-02 08:00] VITALS: BP 139/57; PULSE 78; RESP 18; TEMP 36.3; O2SAT 96
[2024-07-02 08:08] VITALS: BP 139/57; PULSE 78
[2024-07-02] MEDS: Senna/Docusate Sodium 1 Tablet PO ×2 (08:08→21:52)
[2024-07-02] MEDS: Magnesium Chloride 64 MG Delay Rel.Tablet 128 MG PO (08:08)
[2024-07-02] MEDS: Aspirin 81 MG TAB.CHEW PO (08:08)
[2024-07-02] MEDS: Furosemide 40 MG Tablet PO (08:08)
[2024-07-02] MEDS: Losartan Potassium 100 MG Tablet PO (08:08)
[2024-07-02] MEDS: Metoprolol Tartrate 50 MG Tablet PO ×2 (08:08→21:50)
[2024-07-02] MEDS: Lidocaine 5% Patch 1 PATCH TOPICAL (08:09)
[2024-07-02] MEDS: Modafinil 200 MG Tablet 100 MG PO (08:09)
[2024-07-02] MEDS: Polyethylene Glycol 3350 17 GM PACKET PO (08:09)
--- NOTE | 2024-07-02 08:41 | NURSING ---
Testing Projects Administrator Note; Activity Asset: Complete Marisabel has returned to TCU for therapy after a fall. She remains independent in her choice of daily activities. Marisabel prefers to be called Davis. She has her smartphone, word puzzles, reading materials and will watch tv. He family will bring her items she may need or want. Davis welcomes visits from the in class special education teacher and therapy dog when available. Staff will encourage social group, remind her of weekly activities and respect her right to say no.
[2024-07-02] MEDS: Tamsulosin HCl 0.4 MG Capsule PO (17:52)
[2024-07-02 20:00] VITALS: PULSE 80; O2SAT 96
[2024-07-02 21:46] VITALS: BP 128/59; PULSE 82; O2SAT 96
[2024-07-02 21:50] VITALS: BP 128/59; PULSE 82
[2024-07-02] MEDS: Pramipexole Di-HCl 1 MG Tablet 3 MG PO (21:51)
[2024-07-02] MEDS: MELATONIN 3 MG TABLET PO (21:51)
[2024-07-02] MEDS: traMADol 50 MG Tablet PO (22:30)
[2024-07-03] MEDS: Methocarbamol 500 MG Tablet PO ×3 (05:58→20:45)
[2024-07-03] MEDS: Acetaminophen 500 MG Tablet 1000 MG PO ×3 (05:59→20:46)
[2024-07-03] MEDS: Furosemide 40 MG Tablet PO (09:39)
[2024-07-03] MEDS: Aspirin 81 MG TAB.CHEW PO (09:39)
[2024-07-03] MEDS: Losartan Potassium 100 MG Tablet PO (09:39)
[2024-07-03 09:40] VITALS: BP 144/54; PULSE 87
[2024-07-03] MEDS: Metoprolol Tartrate 50 MG Tablet PO ×2 (09:40→20:44)
[2024-07-03] MEDS: Magnesium Chloride 64 MG Delay Rel.Tablet 128 MG PO (09:40)
[2024-07-03] MEDS: Lidocaine 5% Patch 1 PATCH TOPICAL (09:40)
[2024-07-03] MEDS: Senna/Docusate Sodium 1 Tablet PO ×2 (09:41→20:45)
[2024-07-03] MEDS: Polyethylene Glycol 3350 17 GM PACKET PO (09:41)
[2024-07-03] MEDS: Modafinil 200 MG Tablet 100 MG PO (09:46)
[2024-07-03 16:00] VITALS: BP 177/73; PULSE 76; RESP 14; TEMP 36.3; O2SAT 94
[2024-07-03] MEDS: Tamsulosin HCl 0.4 MG Capsule PO (18:12)
[2024-07-03 20:44] VITALS: BP 190/71; PULSE 88
[2024-07-03] MEDS: Pramipexole Di-HCl 1 MG Tablet 3 MG PO (20:44)
[2024-07-03] MEDS: MELATONIN 3 MG TABLET PO (20:45)
[2024-07-03] MEDS: traMADol 50 MG Tablet PO (20:49)
[2024-07-03 20:54] VITALS: BP 190/71; PULSE 88
[2024-07-03 22:20] VITALS: BP 108/40; PULSE 74
[2024-07-04] MEDS: Methocarbamol 500 MG Tablet PO ×3 (06:08→20:00)
[2024-07-04] MEDS: Acetaminophen 500 MG Tablet 1000 MG PO ×3 (06:08→20:01)
[2024-07-04] MEDS: Losartan Potassium 100 MG Tablet PO (09:55)
[2024-07-04] MEDS: Aspirin 81 MG TAB.CHEW PO (09:55)
[2024-07-04] MEDS: Furosemide 40 MG Tablet PO (09:56)
[2024-07-04] MEDS: Lidocaine 5% Patch 1 PATCH TOPICAL (09:56)
[2024-07-04 09:57] VITALS: BP 153/52; PULSE 74
[2024-07-04] MEDS: Metoprolol Tartrate 50 MG Tablet PO ×2 (09:57→19:59)
[2024-07-04] MEDS: Polyethylene Glycol 3350 17 GM PACKET PO (09:57)
[2024-07-04] MEDS: Magnesium Chloride 64 MG Delay Rel.Tablet 128 MG PO (09:57)
[2024-07-04] MEDS: Senna/Docusate Sodium 1 Tablet PO ×2 (09:58→20:00)
[2024-07-04] MEDS: Modafinil 200 MG Tablet 100 MG PO (10:03)
[2024-07-04 10:10] VITALS: BP 153/52; PULSE 74; RESP 18; O2SAT 97
[2024-07-04 16:00] VITALS: TEMP 36.7
[2024-07-04] MEDS: Tamsulosin HCl 0.4 MG Capsule PO (17:20)
[2024-07-04 19:46] VITALS: PULSE 90; RESP 16
[2024-07-04 19:56] VITALS: BP 153/53; PULSE 90
[2024-07-04 19:59] VITALS: BP 153/53; PULSE 90
[2024-07-04] MEDS: MELATONIN 3 MG TABLET PO (20:00)
[2024-07-04] MEDS: Pramipexole Di-HCl 1 MG Tablet 3 MG PO (20:00)
[2024-07-04] MEDS: traMADol 50 MG Tablet PO (21:06)
--- NOTE | 2024-07-05 00:34 | NURSING ---
Voicemail left with Karolina Senior Marketing Analyst, regarding patient code status. Patient reports she made her decision when she was under distress and a lot of pain, and believes she may want to change code status. This nurse explained difference between all code statuses. Patient is unable to make decision at this time but would like to talk with Karolina for more details. Patient verbalized understanding that it is the weekend, and she would like to continue with current code status at this time, but understands she can always change her mind and update this nurse on her wishes.
[2024-07-05] MEDS: traMADol 50 MG Tablet PO ×2 (06:05→21:03)
[2024-07-05] MEDS: Methocarbamol 500 MG Tablet PO ×3 (06:07→20:56)
[2024-07-05] MEDS: Acetaminophen 500 MG Tablet 1000 MG PO ×3 (06:07→20:57)
[2024-07-05 06:17] VITALS: PULSE 80; RESP 16
[2024-07-05] MEDS: Lidocaine 5% Patch 1 PATCH TOPICAL (10:07)
[2024-07-05] MEDS: Aspirin 81 MG TAB.CHEW PO (10:07)
[2024-07-05] MEDS: Losartan Potassium 100 MG Tablet PO (10:07)
[2024-07-05] MEDS: Furosemide 40 MG Tablet PO (10:07)
[2024-07-05] MEDS: Polyethylene Glycol 3350 17 GM PACKET PO (10:08)
[2024-07-05] MEDS: Senna/Docusate Sodium 1 Tablet PO ×2 (10:08→20:56)
[2024-07-05] MEDS: Magnesium Chloride 64 MG Delay Rel.Tablet 128 MG PO (10:08)
[2024-07-05] MEDS: Modafinil 200 MG Tablet 100 MG PO (10:14)
[2024-07-05 10:15] VITALS: BP 155/59; PULSE 71
[2024-07-05] MEDS: Metoprolol Tartrate 50 MG Tablet PO ×2 (10:15→20:54)
--- NOTE | 2024-07-05 10:21 | NURSING ---
Offered covid vaccine, VIS provided. Wants to think about it, will let nursing know if she decides she wants vaccine.
[2024-07-05] MEDS: Nystatin Powder 15gm Bottle 1 APPLIC TOPICAL ×2 (10:24→20:57)
[2024-07-05 14:58] VITALS: BP 138/49; PULSE 71; RESP 16; TEMP 36.6; O2SAT 97
--- NOTE | 2024-07-05 15:16 | CASEMGMT ---
Social Work SW received VM from nightshift RN requesting to speak with pt on code status differences, per pt request. - SW presented to pt's room and offered discussion. Pt stated she was unsure she made a clear, informed decision on her code status and wanted to be educated on the options. SW explained in detail the differences between full code, DNR-CCA with or without intubation and DNR-CC. After discussion, pt concluded her current selection of DNR-CCA, no intubation, is her wish. Pt stated her niece voiced her opinion of pt electing DNR, but pt stated given her comorbidities and age, she is confident with a DNR. Pt also inquired about palliative vs hospice services. SW educated between the two programs. Pt is interested in an informational meeting palliative care to determine if she would like those services. SW agreed to place referral. Pt appreciative. SW completed BIMS () and PHQ-2 () for MDS assessment. Karolina Desir COMPUTER SCIENCE INSTRUCTOR EQUIPMENT MAINTENANCE ENGINEER
[2024-07-05] MEDS: Tamsulosin HCl 0.4 MG Capsule PO (17:42)
[2024-07-05 20:45] VITALS: BP 161/54; PULSE 74
[2024-07-05 20:54] VITALS: BP 161/54; PULSE 74
[2024-07-05] MEDS: Pramipexole Di-HCl 1 MG Tablet 3 MG PO (20:55)
[2024-07-05] MEDS: MELATONIN 3 MG TABLET PO (20:55)
[2024-07-06] MEDS: traMADol 50 MG Tablet PO (03:54)
[2024-07-06] MEDS: Methocarbamol 500 MG Tablet PO ×3 (05:26→22:03)
[2024-07-06] MEDS: Acetaminophen 500 MG Tablet 1000 MG PO ×3 (05:27→22:03)
[2024-07-06] MEDS: Aspirin 81 MG TAB.CHEW PO (08:29)
[2024-07-06] MEDS: Losartan Potassium 100 MG Tablet PO (08:29)
[2024-07-06 08:30] VITALS: BP 135/50; PULSE 82
[2024-07-06] MEDS: Magnesium Chloride 64 MG Delay Rel.Tablet 128 MG PO (08:30)
[2024-07-06] MEDS: Polyethylene Glycol 3350 17 GM PACKET PO (08:30)
[2024-07-06] MEDS: Metoprolol Tartrate 50 MG Tablet PO ×2 (08:30→22:03)
[2024-07-06] MEDS: Furosemide 40 MG Tablet PO (08:30)
[2024-07-06] MEDS: Lidocaine 5% Patch 1 PATCH TOPICAL (08:30)
[2024-07-06] MEDS: Senna/Docusate Sodium 1 Tablet PO (08:31)
[2024-07-06] MEDS: Modafinil 200 MG Tablet 100 MG PO (08:36)
[2024-07-06] MEDS: Nystatin Powder 15gm Bottle 1 APPLIC TOPICAL ×2 (08:39→22:10)
[2024-07-06 11:42] VITALS: BP 135/50; PULSE 82; RESP 18; TEMP 36.9; O2SAT 93
--- NOTE | 2024-07-06 15:03 | CASEMGMT ---
Social Work Secure email sent to [facility] with referral and request to contact pt to schedule informational meeting on services. Karolina Desir LIABILITY CLAIMS MANAGER PREFORMER IMPREGNATED FABRICS
[2024-07-06 15:37] VITALS: BMI 32.7
[2024-07-06] MEDS: Tamsulosin HCl 0.4 MG Capsule PO (17:09)
[2024-07-06 22:03] VITALS: BP 130/50; PULSE 92
[2024-07-06] MEDS: Pramipexole Di-HCl 1 MG Tablet 3 MG PO (22:03)
[2024-07-06] MEDS: MELATONIN 3 MG TABLET PO (22:03)
[2024-07-07] MEDS: traMADol 50 MG Tablet PO ×2 (03:47→21:47)
[2024-07-07] MEDS: Acetaminophen 500 MG Tablet 1000 MG PO ×3 (06:15→21:43)
[2024-07-07] MEDS: Methocarbamol 500 MG Tablet PO ×3 (06:15→21:42)
[2024-07-07 08:03] VITALS: BP 148/62; PULSE 74; RESP 16; TEMP 36.5; O2SAT 95
[2024-07-07] MEDS: Lidocaine 5% Patch 1 PATCH TOPICAL (08:05)
[2024-07-07] MEDS: Aspirin 81 MG TAB.CHEW PO (08:05)
[2024-07-07] MEDS: Losartan Potassium 100 MG Tablet PO (08:05)
[2024-07-07] MEDS: Furosemide 40 MG Tablet PO (08:05)
[2024-07-07 08:06] VITALS: PULSE 74
[2024-07-07] MEDS: Metoprolol Tartrate 50 MG Tablet PO ×2 (08:06→21:44)
[2024-07-07] MEDS: Magnesium Chloride 64 MG Delay Rel.Tablet 128 MG PO (08:06)
[2024-07-07] MEDS: Senna/Docusate Sodium 1 Tablet PO (08:06)
[2024-07-07] MEDS: Nystatin Powder 15gm Bottle 1 APPLIC TOPICAL ×2 (08:07→21:45)
[2024-07-07] MEDS: Modafinil 200 MG Tablet 100 MG PO (08:09)
--- NOTE | 2024-07-07 08:50 | NURSING ---
Sewing Machine Mechanic Note; MDS for 07/07/2024 Complete
--- NOTE | 2024-07-07 10:39 | CASEMGMT ---
Social Work IDT met with patient and dtr for care plan meeting. Discussed patient's progress in PT/OT/SN. Educated to Medicare benefit. Pt admitted on day , d/t to previous SNF stay without a break in service. Provided pt with written communication on insurance process and copay coverage during stay. Pt's goal is to return home alone, but does currently need assistance with bed mobility and ADLs. Pt is ambulating and transferring well, though. MINNIE previously provided family with resources for occupational rehabilitation aide assistance for home. Therapy will continue working with pt. MINNIE to assist with DC planning. Karolina Desir WATER GAS OPERATOR SUPERVISOR WATER SOFTENER SERVICE
[2024-07-07 11:14] VITALS: RESP 15
[2024-07-07] MEDS: Tamsulosin HCl 0.4 MG Capsule PO (17:12)
[2024-07-07 21:38] VITALS: BP 151/56; PULSE 75
[2024-07-07] MEDS: Pramipexole Di-HCl 1 MG Tablet 3 MG PO (21:43)
[2024-07-07 21:44] VITALS: BP 151/56; PULSE 75
[2024-07-07] MEDS: MELATONIN 3 MG TABLET PO (21:44)
[2024-07-08] MEDS: traMADol 50 MG Tablet PO (04:01)
[2024-07-08] MEDS: Acetaminophen 500 MG Tablet 1000 MG PO ×3 (05:10→21:04)
[2024-07-08] MEDS: Methocarbamol 500 MG Tablet PO ×3 (05:11→21:04)
[2024-07-08 05:47] LABS: Absolute Neutrophil Count 3.3 X10^3/uL (2.0-7.7); Basophil# 0.09 X10^3/uL; Basophil% 1.6 % (0-1); Eosinophils% 5.2 % (0-5); Hematocrit 27.6 % (37-47); Hemoglobin 8.7 g/dL (12.0-15.0); Lymphocyte % 22.6 % (19-41); Mean Corp Hgb Conc 31.5 g/dL (32-36); Mean Corpuscular Hgb 30.2 pg (27.0-32.0); Mean Corpuscular Volume 95.8 fL (81-99); Mean Platelet Vol. 9.4 fl (6.2-12.0); Monocyte# 0.66 X10^3/uL; Monocyte% 11.5 % (0-10); NRBC Flagged by Analyzer 0 % (0-5); Neutrophil # 3.33 X10^3/uL (2.7-7.7); Neutrophil % 57.7 % (47-70); Platelet Count 362 K/mm3 (150-450); RBC Distribution Width CV 15.2 % (11.6-14.6); RBC Distribution Width SD 53.6 fl (35.1-43.9); Red Blood Count 2.88 M/mm3 (4.2-5.4); White Blood Count 5.8 K/mm3 (4.4-11.0)
[2024-07-08 06:17] LABS: BUN 20 mg/dL (4-19); BUN/Creat Ratio 25.9 RATIO (10-20); Creatinine, Serum 0.8 mg/dL (0.6-1.0); EST Glomerular Filtration Rate 74 (>60); Estimated Creatinine Clearance 44.28 ml/min; Glucose 104 mg/dL (70-99)
[2024-07-08 07:52] VITALS: BP 168/60; PULSE 66; RESP 16; TEMP 36.2; O2SAT 98
[2024-07-08] MEDS: Losartan Potassium 100 MG Tablet PO (07:54)
[2024-07-08] MEDS: Furosemide 40 MG Tablet PO (07:54)
[2024-07-08] MEDS: Aspirin 81 MG TAB.CHEW PO (07:54)
[2024-07-08 07:55] VITALS: PULSE 66
[2024-07-08] MEDS: Magnesium Chloride 64 MG Delay Rel.Tablet 128 MG PO (07:55)
[2024-07-08] MEDS: Senna/Docusate Sodium 1 Tablet PO ×2 (07:55→21:03)
[2024-07-08] MEDS: Lidocaine 5% Patch 1 PATCH TOPICAL (07:55)
[2024-07-08] MEDS: Metoprolol Tartrate 50 MG Tablet PO ×2 (07:55→21:03)
[2024-07-08] MEDS: Modafinil 200 MG Tablet 100 MG PO (07:58)
[2024-07-08] MEDS: Nystatin Powder 15gm Bottle 1 APPLIC TOPICAL ×2 (07:59→21:04)
[2024-07-08 09:09] LABS: Anion Gap 11 (5-15); Calcium,Total 9.1 mg/dL (7.6-11.0); Carbon Dioxide 26.1 mmol/L (21.0-32.0); Chloride 100 mmol/L (98-107); Sodium Level 137 mmol/L (136-145)
[2024-07-08] MEDS: Tuberculin,Purif.prot.deriv. 50 TU/ML Vial 0.1 ML ID (11:16)
[2024-07-08 16:07] VITALS: PULSE 69; RESP 17; O2SAT 97
[2024-07-08] MEDS: Tamsulosin HCl 0.4 MG Capsule PO (17:09)
[2024-07-08 21:03] VITALS: BP 161/58; PULSE 80
[2024-07-08] MEDS: Pramipexole Di-HCl 1 MG Tablet 3 MG PO (21:03)
[2024-07-08] MEDS: MELATONIN 3 MG TABLET PO (21:03)
[2024-07-08 21:11] VITALS: BP 161/58; PULSE 80
[2024-07-08 22:36] VITALS: BP 157/65; PULSE 70
[2024-07-09] MEDS: traMADol 50 MG Tablet PO ×2 (04:04→21:31)
[2024-07-09 04:22] VITALS: RESP 16
[2024-07-09] MEDS: Methocarbamol 500 MG Tablet PO ×3 (05:52→21:33)
[2024-07-09] MEDS: Acetaminophen 500 MG Tablet 1000 MG PO ×3 (05:52→21:33)
[2024-07-09 07:47] VITALS: BP 156/76; PULSE 80
[2024-07-09] MEDS: Aspirin 81 MG TAB.CHEW PO (07:47)
[2024-07-09] MEDS: Losartan Potassium 100 MG Tablet PO (07:47)
[2024-07-09] MEDS: Senna/Docusate Sodium 1 Tablet PO (07:47)
[2024-07-09] MEDS: Magnesium Chloride 64 MG Delay Rel.Tablet 128 MG PO (07:47)
[2024-07-09] MEDS: Modafinil 200 MG Tablet 100 MG PO (07:47)
[2024-07-09] MEDS: Metoprolol Tartrate 50 MG Tablet PO ×2 (07:47→21:32)
[2024-07-09] MEDS: Furosemide 40 MG Tablet PO (07:47)
[2024-07-09] MEDS: Lidocaine 5% Patch 1 PATCH TOPICAL (07:48)
[2024-07-09] MEDS: Nystatin Powder 15gm Bottle 1 APPLIC TOPICAL ×2 (07:48→21:33)
[2024-07-09 08:56] VITALS: BP 156/56; PULSE 70; RESP 18; TEMP 37.1; O2SAT 98
[2024-07-09] MEDS: Tamsulosin HCl 0.4 MG Capsule PO (17:52)
[2024-07-09] MEDS: MELATONIN 3 MG TABLET PO (21:31)
[2024-07-09 21:32] VITALS: BP 187/65; PULSE 84
[2024-07-09] MEDS: Pramipexole Di-HCl 1 MG Tablet 3 MG PO (21:32)
[2024-07-09 21:38] VITALS: BP 187/65; PULSE 84
[2024-07-09 22:35] VITALS: BP 179/74; PULSE 76
[2024-07-10] VITALS (7 sets, daily range): BP systolic 128–162; BP diastolic 40–72; PULSE 70–98; RESP 16–18; TEMP 36.6; O2SAT 96
[2024-07-10] MEDS: Methocarbamol 500 MG Tablet PO ×3 (05:40→21:11)
[2024-07-10] MEDS: Acetaminophen 500 MG Tablet 1000 MG PO ×3 (05:40→21:11)
[2024-07-10] MEDS: Lidocaine 5% Patch 1 PATCH TOPICAL (09:04)
[2024-07-10] MEDS: Metoprolol Tartrate 50 MG Tablet PO (09:04)
[2024-07-10] MEDS: Aspirin 81 MG TAB.CHEW PO (09:05)
[2024-07-10] MEDS: Magnesium Chloride 64 MG Delay Rel.Tablet 128 MG PO (09:05)
[2024-07-10] MEDS: Furosemide 40 MG Tablet PO (09:05)
[2024-07-10] MEDS: Losartan Potassium 100 MG Tablet PO (09:06)
[2024-07-10] MEDS: Modafinil 200 MG Tablet 100 MG PO (09:12)
[2024-07-10] MEDS: Nystatin Powder 15gm Bottle 1 APPLIC TOPICAL ×2 (09:13→21:10)
--- NOTE | 2024-07-10 14:00 | NURSING ---
Addendum entered by Kaylee Jordan 07/10/24 17:43: Pt continues to deny numbness/new numbness to left hand at this time. Addendum entered by Kaylee Jordan 07/10/24 15:37: Pt denies numbness to left hand at this time. States sometimes I get worried about things like this. Neuro assessment WNL. Currently resting in recliner, eating snacks. Original Note: ~1400, staff reports that while ambulating back to recliner, pt complains of newnumbness to left hand and it feels like it did the day before I had my last stroke. Walked into room, pt states that the numbness is almost gone. During assessment this morning, pt had reported some numbness to bilateral feet and left hand, chronic since hospitalization ~month ago. Vitals: bp-169/44, p-87, r-18, sp02-97% RA. PERRLA intact, pupils 3mm. Facial symmetry intact, strength equal to BUE. Will monitor.
--- NOTE | 2024-07-10 15:07 | NURSING ---
Dr. Marshall updated on pts BP trending high. N.O. received to increase Lopressor from 50mg to 75mg BID and continue to monitor BP. Order read back.
[2024-07-10] MEDS: Tamsulosin HCl 0.4 MG Capsule PO (17:42)
[2024-07-10] MEDS: Metoprolol Tartrate 25 MG Tablet 75 MG PO (21:07)
[2024-07-10] MEDS: MELATONIN 3 MG TABLET PO (21:08)
[2024-07-10] MEDS: Pramipexole Di-HCl 1 MG Tablet 3 MG PO (21:09)
[2024-07-10] MEDS: traMADol 50 MG Tablet PO (21:14)
[2024-07-11] MEDS: traMADol 50 MG Tablet PO ×2 (04:02→20:59)
[2024-07-11] MEDS: Methocarbamol 500 MG Tablet PO ×3 (05:21→20:55)
[2024-07-11] MEDS: Acetaminophen 500 MG Tablet 1000 MG PO ×3 (05:21→20:56)
[2024-07-11 06:36] VITALS: PULSE 74; O2SAT 97
[2024-07-11 10:00] VITALS: BP 131/50; PULSE 89; RESP 18; TEMP 36.2; O2SAT 94
[2024-07-11] MEDS: Furosemide 40 MG Tablet PO (10:09)
[2024-07-11] MEDS: Losartan Potassium 100 MG Tablet PO (10:09)
[2024-07-11 10:10] VITALS: BP 131/50; PULSE 89
[2024-07-11] MEDS: Metoprolol Tartrate 25 MG Tablet 75 MG PO ×2 (10:10→20:50)
[2024-07-11] MEDS: Nystatin Powder 15gm Bottle 1 APPLIC TOPICAL ×2 (10:11→20:50)
[2024-07-11] MEDS: Lidocaine 5% Patch 1 PATCH TOPICAL (10:11)
[2024-07-11] MEDS: Aspirin 81 MG TAB.CHEW PO (10:12)
[2024-07-11] MEDS: Modafinil 200 MG Tablet 100 MG PO (10:16)
--- NOTE | 2024-07-11 16:18 | NURSING ---
Addendum entered by Sheri Syed 07/11/24 16:26: Patient complaint was to left arm and not right and history of weakness was to left side. Original Note: This AM, patient states her right arm feels weak and her chest hurts and she feels lethargic and nauseated today and she is concerned about weakness in arm due to history of subarachnoid hemorrhage. VS 97.2 131/50 89 94% 18. Patient has no facial droop and right arm slighter weaker to right side during arm lift and she is able to lift both legs, hand fun house operator is equal, patient is A/O x3. Right arm has history of being weak from last stroke per patient report. Alta-arielle given to patient for nausea and patient denies further needs at this time. After checking on patient 1 hour later, she reports her symptoms have not worsened and that nausea has improved. Patient eats lunch this afternoon and walks with this nurse in hallway with no difficulties or complaints.
[2024-07-11] MEDS: Tamsulosin HCl 0.4 MG Capsule PO (18:04)
[2024-07-11 20:48] VITALS: BP 134/57; PULSE 77
[2024-07-11 20:50] VITALS: BP 134/57; PULSE 77
[2024-07-11] MEDS: MELATONIN 3 MG TABLET PO (20:57)
[2024-07-11] MEDS: Pramipexole Di-HCl 1 MG Tablet 3 MG PO (20:57)
[2024-07-12] MEDS: Methocarbamol 500 MG Tablet PO ×3 (05:36→21:39)
[2024-07-12] MEDS: Acetaminophen 500 MG Tablet 1000 MG PO ×3 (05:36→21:39)
[2024-07-12] MEDS: Modafinil 200 MG Tablet 100 MG PO (08:46)
[2024-07-12] MEDS: Furosemide 40 MG Tablet PO (08:47)
[2024-07-12] MEDS: Aspirin 81 MG TAB.CHEW PO (08:47)
[2024-07-12] MEDS: Losartan Potassium 100 MG Tablet PO (08:47)
[2024-07-12 08:48] VITALS: BP 139/45; PULSE 74
[2024-07-12] MEDS: Magnesium Chloride 64 MG Delay Rel.Tablet 128 MG PO (08:48)
[2024-07-12] MEDS: Metoprolol Tartrate 25 MG Tablet 75 MG PO ×2 (08:48→21:48)
[2024-07-12] MEDS: Lidocaine 5% Patch 1 PATCH TOPICAL (08:52)
[2024-07-12] MEDS: Nystatin Powder 15gm Bottle 1 APPLIC TOPICAL ×2 (08:53→21:40)
[2024-07-12 10:00] VITALS: BP 139/45; PULSE 74; RESP 18; TEMP 36.4; O2SAT 98
[2024-07-12] MEDS: Tamsulosin HCl 0.4 MG Capsule PO (17:41)
[2024-07-12] MEDS: Pramipexole Di-HCl 1 MG Tablet 3 MG PO (21:39)
[2024-07-12] MEDS: MELATONIN 3 MG TABLET PO (21:39)
[2024-07-12 21:48] VITALS: BP 184/56; PULSE 83
[2024-07-12 21:51] VITALS: BP 184/56; PULSE 83
[2024-07-12 22:32] VITALS: BP 126/47; PULSE 72
[2024-07-13] MEDS: Methocarbamol 500 MG Tablet PO ×3 (05:58→20:40)
[2024-07-13] MEDS: Acetaminophen 500 MG Tablet 1000 MG PO ×3 (05:58→20:42)
[2024-07-13] MEDS: traMADol 50 MG Tablet PO ×2 (05:59→20:44)
[2024-07-13 06:01] VITALS: PULSE 79; RESP 16
--- NOTE | 2024-07-13 07:13 | MDS.RN ---
Information for the MDS was obtained from review of the clinical record, interview of resident, staff, and direct observation of resident?s care.
[2024-07-13 09:46] VITALS: BP 126/51; PULSE 72; RESP 16; TEMP 36.4; O2SAT 96
[2024-07-13] MEDS: Aspirin 81 MG TAB.CHEW PO (09:48)
[2024-07-13 09:49] VITALS: PULSE 72
[2024-07-13] MEDS: Lidocaine 5% Patch 1 PATCH TOPICAL (09:49)
[2024-07-13] MEDS: Furosemide 40 MG Tablet PO (09:49)
[2024-07-13] MEDS: Magnesium Chloride 64 MG Delay Rel.Tablet 128 MG PO (09:49)
[2024-07-13] MEDS: Metoprolol Tartrate 25 MG Tablet 75 MG PO ×2 (09:49→20:38)
[2024-07-13] MEDS: Losartan Potassium 100 MG Tablet PO (09:49)
[2024-07-13] MEDS: Nystatin Powder 15gm Bottle 1 APPLIC TOPICAL ×2 (09:52→20:39)
[2024-07-13] MEDS: Modafinil 200 MG Tablet 100 MG PO (09:52)
--- NOTE | 2024-07-13 10:36 | NURSING ---
therapy requesting larger surgical shoe, was able to get a large from [facility], placed on pt RT foot. pt satisfied with LG size instead of medium, toes are not hanging over end of shoe.
[2024-07-13 11:33] VITALS: BMI 32.5
[2024-07-13] MEDS: Tamsulosin HCl 0.4 MG Capsule PO (16:50)
[2024-07-13 20:34] VITALS: BP 131/52; PULSE 76
[2024-07-13 20:38] VITALS: BP 131/52; PULSE 76
[2024-07-13] MEDS: Pramipexole Di-HCl 1 MG Tablet 3 MG PO (20:39)
[2024-07-13] MEDS: MELATONIN 3 MG TABLET PO (20:39)
[2024-07-14] MEDS: Methocarbamol 500 MG Tablet PO ×3 (06:06→21:25)
[2024-07-14] MEDS: Acetaminophen 500 MG Tablet 1000 MG PO ×3 (06:07→21:24)
[2024-07-14 09:17] VITALS: BP 136/50; PULSE 80; RESP 16; TEMP 36.2; O2SAT 98
[2024-07-14 09:21] VITALS: PULSE 80
[2024-07-14] MEDS: Metoprolol Tartrate 25 MG Tablet 75 MG PO ×2 (09:21→21:24)
[2024-07-14] MEDS: Aspirin 81 MG TAB.CHEW PO (09:21)
[2024-07-14] MEDS: Lidocaine 5% Patch 1 PATCH TOPICAL (09:25)
[2024-07-14] MEDS: Furosemide 40 MG Tablet PO (09:25)
[2024-07-14] MEDS: Magnesium Chloride 64 MG Delay Rel.Tablet 128 MG PO (09:25)
[2024-07-14] MEDS: Senna/Docusate Sodium 1 Tablet PO (09:25)
[2024-07-14] MEDS: Losartan Potassium 100 MG Tablet PO (09:25)
[2024-07-14] MEDS: Nystatin Powder 15gm Bottle 1 APPLIC TOPICAL ×2 (09:27→21:25)
[2024-07-14] MEDS: Modafinil 200 MG Tablet 100 MG PO (09:31)
[2024-07-14 15:26] VITALS: RESP 17; O2SAT 97
[2024-07-14] MEDS: Tamsulosin HCl 0.4 MG Capsule PO (16:40)
[2024-07-14] MEDS: Pramipexole Di-HCl 1 MG Tablet 3 MG PO (21:23)
[2024-07-14 21:24] VITALS: BP 162/57; PULSE 75
[2024-07-14] MEDS: MELATONIN 3 MG TABLET PO (21:24)
[2024-07-14] MEDS: traMADol 50 MG Tablet PO (21:27)
[2024-07-14 21:29] VITALS: BP 162/57; PULSE 75
[2024-07-15] MEDS: traMADol 50 MG Tablet PO ×2 (03:27→21:38)
[2024-07-15 05:47] LABS: Absolute Lymphocyte Count 1.56 X10^3/uL (0.83-4.51); Absolute Neutrophil Count 2.9 X10^3/uL (2.0-7.7); Basophil# 0.06 X10^3/uL; Basophil% 1.1 % (0-1); Eosinophil# 0.26 X10^3/uL; Eosinophils% 4.7 % (0-5); Hematocrit 26.9 % (37-47); Hemoglobin 8.4 g/dL (12.0-15.0); Lymphocyte # 1.56 X10^3/ul (0.83-4.51); Lymphocyte % 28.5 % (19-41); Mean Corp Hgb Conc 31.2 g/dL (32-36); Mean Corpuscular Volume 96.1 fL (81-99); Mean Platelet Vol. 9.3 fl (6.2-12.0); Monocyte# 0.65 X10^3/uL; Monocyte% 11.9 % (0-10); NRBC Flagged by Analyzer 0 % (0-5); Neutrophil % 52.9 % (47-70); Platelet Count 298 K/mm3 (150-450); RBC Distribution Width CV 15.1 % (11.6-14.6); RBC Distribution Width SD 53.6 fl (35.1-43.9); White Blood Count 5.5 K/mm3 (4.4-11.0)
[2024-07-15] MEDS: Methocarbamol 500 MG Tablet PO ×3 (06:05→21:39)
[2024-07-15] MEDS: Acetaminophen 500 MG Tablet 1000 MG PO ×3 (06:05→21:41)
[2024-07-15 07:38] LABS: Anion Gap 13 (5-15); BUN 26 mg/dL (4-19); BUN/Creat Ratio 28.8 RATIO (10-20); Calcium,Total 9.5 mg/dL (7.6-11.0); Carbon Dioxide 23.9 mmol/L (21.0-32.0); Chloride 101 mmol/L (98-108); Creatinine, Serum 0.91 mg/dL (0.70-1.20); EST Glomerular Filtration Rate 61 (>60); Estimated Creatinine Clearance 38.83 ml/min (50-250); Glucose 86 mg/dL (70-99); Potassium 4.2 mmol/L (3.3-5.1); Sodium Level 138 mmol/L (133-145)
[2024-07-15] MEDS: Furosemide 40 MG Tablet PO (08:03)
[2024-07-15] MEDS: Lidocaine 5% Patch 1 PATCH TOPICAL (08:03)
[2024-07-15] MEDS: Nystatin Powder 15gm Bottle 1 APPLIC TOPICAL ×2 (08:03→21:41)
[2024-07-15] MEDS: Magnesium Chloride 64 MG Delay Rel.Tablet 128 MG PO (08:03)
[2024-07-15] MEDS: Losartan Potassium 100 MG Tablet PO (08:03)
[2024-07-15] MEDS: Senna/Docusate Sodium 1 Tablet PO (08:03)
[2024-07-15] MEDS: Polyethylene Glycol 3350 17 GM PACKET PO (08:03)
[2024-07-15] MEDS: Aspirin 81 MG TAB.CHEW PO (08:03)
[2024-07-15 08:06] VITALS: BP 146/58; PULSE 74; RESP 16; TEMP 36.2; O2SAT 95
[2024-07-15] MEDS: Metoprolol Tartrate 100 MG Tablet PO ×2 (08:06→21:40)
[2024-07-15] MEDS: Modafinil 200 MG Tablet 100 MG PO (08:06)
[2024-07-15] MEDS: Tamsulosin HCl 0.4 MG Capsule PO (16:38)
[2024-07-15] MEDS: Pramipexole Di-HCl 1 MG Tablet 3 MG PO (21:39)
[2024-07-15 21:40] VITALS: BP 183/79; PULSE 78
[2024-07-15] MEDS: MELATONIN 3 MG TABLET PO (21:40)
[2024-07-15 21:44] VITALS: BP 183/79; PULSE 78
[2024-07-15 21:50] VITALS: PULSE 75; RESP 16; O2SAT 94
[2024-07-15 22:20] VITALS: BP 104/39; PULSE 67
[2024-07-16] MEDS: Methocarbamol 500 MG Tablet PO ×3 (05:08→21:31)
[2024-07-16] MEDS: Acetaminophen 500 MG Tablet 1000 MG PO ×3 (05:09→21:31)
[2024-07-16 05:18] VITALS: RESP 16; O2SAT 94
[2024-07-16 05:57] LABS: Hematocrit 27.1 % (37-47); Hemoglobin 8.6 g/dL (12.0-15.0)
[2024-07-16 07:41] VITALS: BP 150/62; PULSE 64; RESP 18; TEMP 36.2; O2SAT 96
[2024-07-16] MEDS: Modafinil 200 MG Tablet 100 MG PO (09:08)
[2024-07-16] MEDS: Aspirin 81 MG TAB.CHEW PO (09:09)
[2024-07-16] MEDS: Losartan Potassium 100 MG Tablet PO (09:10)
[2024-07-16] MEDS: Furosemide 40 MG Tablet PO (09:10)
[2024-07-16 09:11] VITALS: BP 150/62; PULSE 64
[2024-07-16] MEDS: Metoprolol Tartrate 100 MG Tablet PO ×2 (09:11→21:30)
[2024-07-16] MEDS: Magnesium Chloride 64 MG Delay Rel.Tablet 128 MG PO (09:14)
[2024-07-16] MEDS: Nystatin Powder 15gm Bottle 1 APPLIC TOPICAL ×2 (09:16→21:31)
[2024-07-16] MEDS: Senna/Docusate Sodium 1 Tablet PO (09:17)
[2024-07-16] MEDS: traMADol 50 MG Tablet PO ×2 (09:18→21:29)
[2024-07-16] MEDS: Lidocaine 5% Patch 1 PATCH TOPICAL (11:03)
[2024-07-16] MEDS: Tamsulosin HCl 0.4 MG Capsule PO (17:10)
[2024-07-16 21:30] VITALS: BP 152/51; PULSE 81
[2024-07-16] MEDS: MELATONIN 3 MG TABLET PO (21:30)
[2024-07-16] MEDS: Pramipexole Di-HCl 1 MG Tablet 3 MG PO (21:31)
[2024-07-17] MEDS: Methocarbamol 500 MG Tablet PO ×3 (05:18→21:21)
[2024-07-17] MEDS: Acetaminophen 500 MG Tablet 1000 MG PO ×3 (05:18→21:22)
[2024-07-17] MEDS: Losartan Potassium 100 MG Tablet PO (08:53)
[2024-07-17] MEDS: Furosemide 40 MG Tablet PO (08:53)
[2024-07-17] MEDS: Aspirin 81 MG TAB.CHEW PO (08:53)
[2024-07-17 08:54] VITALS: PULSE 74
[2024-07-17] MEDS: Magnesium Chloride 64 MG Delay Rel.Tablet 128 MG PO (08:54)
[2024-07-17] MEDS: Metoprolol Tartrate 100 MG Tablet PO ×2 (08:54→21:23)
[2024-07-17] MEDS: Lidocaine 5% Patch 1 PATCH TOPICAL (08:54)
[2024-07-17] MEDS: Nystatin Powder 15gm Bottle 1 APPLIC TOPICAL (08:55)
[2024-07-17] MEDS: Modafinil 200 MG Tablet 100 MG PO (10:08)
[2024-07-17 10:30] VITALS: BP 136/64; PULSE 74; RESP 16; TEMP 36.9; O2SAT 97
[2024-07-17] MEDS: Tamsulosin HCl 0.4 MG Capsule PO (16:39)
[2024-07-17] MEDS: MELATONIN 3 MG TABLET PO (21:22)
[2024-07-17 21:23] VITALS: BP 159/63; PULSE 93
[2024-07-17] MEDS: Pramipexole Di-HCl 1 MG Tablet 3 MG PO (21:23)
[2024-07-17] MEDS: traMADol 50 MG Tablet PO (21:30)
[2024-07-17 21:50] VITALS: BP 159/62; PULSE 93; RESP 16; TEMP 36.7; O2SAT 95
--- NOTE | 2024-07-17 21:50 | NURSING ---
Resident questions if she has the flu. Reports generalized body aches- though acknowledges she has a hx of generalized musculoskeletal pain but does not verbalize if the pain is increased from baseline when asked, increased fatigue, onset of a non-productive cough today, runny nose, and PND. She verbalizes concerns hearing coughing on the unit. Secure Backline message sent to Dr. Marshall to update. Vitals obtained and recorded. New orders received for rapid COVID swab and respiratory panel. Phone call placed to respiratory to collect respiratory panel. This nurse obtained specimen for rapid COVID. Resident tolerated well. Will continue to monitor.
[2024-07-18] MEDS: Acetaminophen 500 MG Tablet 1000 MG PO ×3 (05:39→21:07)
[2024-07-18] MEDS: Methocarbamol 500 MG Tablet PO ×2 (05:39→14:16)
[2024-07-18] MEDS: Modafinil 200 MG Tablet 100 MG PO (09:20)
[2024-07-18] MEDS: Lidocaine 5% Patch 1 PATCH TOPICAL (09:21)
[2024-07-18 09:23] VITALS: PULSE 70
[2024-07-18] MEDS: Magnesium Chloride 64 MG Delay Rel.Tablet 128 MG PO (09:23)
[2024-07-18] MEDS: Losartan Potassium 100 MG Tablet PO (09:23)
[2024-07-18] MEDS: Furosemide 40 MG Tablet PO (09:23)
[2024-07-18] MEDS: Aspirin 81 MG TAB.CHEW PO (09:23)
[2024-07-18] MEDS: Metoprolol Tartrate 100 MG Tablet PO ×2 (09:23→21:06)
[2024-07-18] MEDS: Senna/Docusate Sodium 1 Tablet PO ×2 (09:24→21:07)
[2024-07-18] MEDS: Polyethylene Glycol 3350 17 GM PACKET PO (09:24)
[2024-07-18] MEDS: Nystatin Powder 15gm Bottle 1 APPLIC TOPICAL ×2 (09:24→21:09)
[2024-07-18 10:14] VITALS: BP 133/56; PULSE 70; RESP 18; TEMP 36.5; O2SAT 91
[2024-07-18] MEDS: Tamsulosin HCl 0.4 MG Capsule PO (17:24)
[2024-07-18 21:06] VITALS: PULSE 86
[2024-07-18] MEDS: MELATONIN 3 MG TABLET PO (21:08)
[2024-07-18] MEDS: Pramipexole Di-HCl 1 MG Tablet 3 MG PO (21:08)
[2024-07-18] MEDS: traMADol 50 MG Tablet PO (21:19)
[2024-07-18] MEDS: Methocarbamol 500 MG Tablet 250 MG PO (21:20)
[2024-07-19] VITALS (8 sets, daily range): BP systolic 165–236; BP diastolic 61–86; PULSE 60–80; RESP 16; TEMP 36.6–36.7; O2SAT 93–96
[2024-07-19] MEDS: Acetaminophen 500 MG Tablet 1000 MG PO ×3 (05:33→21:01)
[2024-07-19] MEDS: Methocarbamol 500 MG Tablet 250 MG PO ×3 (05:34→13:16)
[2024-07-19 05:42] LABS: Hematocrit 26.4 % (37-47); Hemoglobin 8.4 g/dL (12.0-15.0)
[2024-07-19] MEDS: Aspirin 81 MG TAB.CHEW PO (09:50)
[2024-07-19] MEDS: Losartan Potassium 100 MG Tablet PO (09:51)
[2024-07-19] MEDS: Furosemide 40 MG Tablet PO (09:51)
[2024-07-19] MEDS: Metoprolol Tartrate 100 MG Tablet PO ×2 (09:52→21:02)
[2024-07-19] MEDS: Lidocaine 5% Patch 1 PATCH TOPICAL (09:52)
[2024-07-19] MEDS: Magnesium Chloride 64 MG Delay Rel.Tablet 128 MG PO (09:53)
[2024-07-19] MEDS: Nystatin Powder 15gm Bottle 1 APPLIC TOPICAL ×2 (09:54→21:02)
[2024-07-19] MEDS: Senna/Docusate Sodium 1 Tablet PO (09:55)
[2024-07-19] MEDS: Tamsulosin HCl 0.4 MG Capsule PO (16:43)
--- NOTE | 2024-07-19 16:52 | NURSING ---
PT HAD FINE CRACKLES TO POST AND RT FRONT LOBE. HAD PT COUGH AND DEEP BREATH AND EDUCATED PT ON USING THE I.S. PT USED THE I.S A FEW TIMES AND ALL CLEARED UP BUT FRONT LOBE. WILL CONTINUE TO MONITOR AND RN AWARE.
[2024-07-19] MEDS: traMADol 50 MG Tablet PO (21:00)
[2024-07-19] MEDS: Pramipexole Di-HCl 1 MG Tablet 3 MG PO (21:01)
[2024-07-19] MEDS: MELATONIN 3 MG TABLET PO (21:02)
--- NOTE | 2024-07-19 21:57 | NURSING ---
Addendum entered by Mary Marrufo 07/20/24 01:06: Rechecked blood pressure, refer to worklist. Per order, dose not given due to a SBP < 200. Original Note: Patient's BP 236/86, HR-77 at 2100. Manual BP 202/82, HR-76. Patient' BPs have been trending high. BATSHEVA Lopressor given this HS. Consulted Dr. Marshall via telephone, new order for x1 dose of Clonidine 0.1mg PO. Per Dr. Marshall, if SBP is <200, do not give dose. Telephone orders read back and verified.
[2024-07-20 02:56] VITALS: RESP 16
[2024-07-20] MEDS: Methocarbamol 500 MG Tablet 250 MG PO ×2 (06:11→13:07)
[2024-07-20] MEDS: traMADol 50 MG Tablet PO ×2 (06:11→20:02)
[2024-07-20] MEDS: Acetaminophen 500 MG Tablet 1000 MG PO ×3 (06:11→20:05)
[2024-07-20 08:11] VITALS: BMI 33.0
[2024-07-20 08:56] VITALS: BP 147/54; PULSE 82; RESP 16; TEMP 36.9; O2SAT 94
[2024-07-20 08:59] VITALS: PULSE 82
[2024-07-20] MEDS: Lidocaine 5% Patch 1 PATCH TOPICAL (08:59)
[2024-07-20] MEDS: Aspirin 81 MG TAB.CHEW PO (08:59)
[2024-07-20] MEDS: Metoprolol Tartrate 100 MG Tablet PO ×2 (08:59→20:04)
[2024-07-20] MEDS: Magnesium Chloride 64 MG Delay Rel.Tablet 128 MG PO (08:59)
[2024-07-20] MEDS: Furosemide 40 MG Tablet PO (08:59)
[2024-07-20] MEDS: Losartan Potassium 100 MG Tablet PO (08:59)
[2024-07-20] MEDS: Nystatin Powder 15gm Bottle 1 APPLIC TOPICAL ×2 (09:01→20:05)
--- NOTE | 2024-07-20 12:55 | RAD_ITS ---
EXAM: XR Chest, 2 Views CLINICAL INDICATION: COUGH. TECHNIQUE: Frontal and lateral views of the chest. COMPARISON: No relevant prior studies available. FINDINGS: LUNGS AND PLEURAL SPACES: Pulmonary venous congestion. No consolidation. No pneumothorax. HEART: Unremarkable. No cardiomegaly. MEDIASTINUM: Small esophageal hiatal hernia. BONES/JOINTS: Unremarkable. No acute fracture. RAD/Chest PA and Lateral IMPRESSION: 1. Small esophageal hiatal hernia. 2. Pulmonary venous congestion. Reading [facility]
--- NOTE | 2024-07-20 13:00 | NURSING ---
Addendum entered by Marisabel Reyes 07/20/24 18:17: dr mckinney updated on cxr results, no new orders. continue plan of care Addendum entered by Marisabel Reyes 07/20/24 13:23: pt continues with sinus congestion but states she feels better today. mine shifter nurse heard crackles to lungs but cleared with coughing Original Note: pt off unit to xray of chest via WC
--- NOTE | 2024-07-20 15:07 | CASEMGMT ---
Addendum entered by Karolina Desir 07/20/24 15:38: Dtr and niece present in pt's room and requested to speak with this worker. SW presented to pt's room and answered family's questions. Family decided on DC 07/26 prior to [facility]by appt at 1130. Pt has ENT appt 07/23 and inquired about transport to appt for pt to go alone. SW to inquire to [facility] as pt can transfer independently. Family requesting hospital bed at DC and pt would like to restart services with [facility]. SW to coordinate. - SW left VM with [facility]. Notified [facility] for PT/OT/SN; Rhona for hospital bed via [facility]. Plan: DC home alone 07/26, [facility] PT/OT/SN, hospital bed Karolina RODRIGUEZW Original Note: Social Work SW phoned dtr to provide update on pt's progress and DC plans. MINNIE informed dtr that pt is now adlib in room after morning ADLs, to allow pt freedom in a controlled environment. If pt continues to do well, offered to set DC date mid to end of next week (week 07/26). Dtr appreciative of update, though informed this worker she is going on vacation from 07/29-08/04. MINNIE explained pt is currently on day 21 of this stay, and admitted on day 17, and pt is already adlib; cannot extend pt's stay to the 08/04 d/t dtr's vacation. MINNIE offered for pt to pay privately to remain or for pt to DC earlier. Offered flexibility in that regard. Dtr to review calendar and notify this worker. SW will continue to follow. Karolina RODRIGUEZW
--- NOTE | 2024-07-20 16:11 | NURSING ---
daughter making follow up appt with DR Rodriguez for right 5th metatarsal fx, they have questions regarding surgical shoe & how long she has to wear it. faxed H&P, [facility] General summary DC.
[2024-07-20 16:17] VITALS: BMI 33.0
[2024-07-20] MEDS: Tamsulosin HCl 0.4 MG Capsule PO (17:48)
--- NOTE | 2024-07-20 19:15 | PCM.DC.SUM ---
Providers Date of Admission: 06/30/24 Primary Care Physician: Dr. Hussein Swenson MD Consultations 07/06/24 14:58 Consult: Hospice / Palliative Care Routine Consulting Provider: [facility] Reason for Consult: PALLIATIVE - COPD, hx CVA EMERGENT Consult: No MD Notified: Yes Date Notified: 07/06/24 Time Notified: 14:58 Method of Notification: Text Reason For Visit: L1, L2 FRACTURE; MULTIPLE RIB FX, RIGHT 5TH Diagnosis Discharge Diagnosis (1) Debility: Status: Acute Code(s): R53.81 - Other malaise (2) Multiple falls: Status: Acute Code(s): R29.6 - Repeated falls (3) Multiple rib fractures: Status: Acute Code(s): S22.49XA - Multiple fractures of ribs, unspecified side, initial encounter for closed fracture (4) Compression fracture of L2: Status: Acute Code(s): S32.020A - Wedge compression fracture of second lumbar vertebra, initial encounter for closed fracture (5) Compression fracture of L3 vertebra: Status: Resolved Code(s): S32.030A - Wedge compression fracture of third lumbar vertebra, initial encounter for closed fracture (6) Fracture of fifth metatarsal bone of right foot: Status: Inactive Code(s): S92.351A - Displaced fracture of fifth metatarsal bone, right foot, initial encounter for closed fracture (7) Multiple transverse process fractures: Status: Acute (8) Subarachnoid hemorrhage: Status: Acute Code(s): I60.9 - Nontraumatic subarachnoid hemorrhage, unspecified (9) Cerebral amyloid angiopathy: Status: Acute Code(s): E85.4 - Organ-limited amyloidosis; I68.0 - Cerebral amyloid angiopathy (10) Restless leg syndrome: Status: Chronic Code(s): G25.81 - Restless legs syndrome (11) Obstructive sleep apnea: Status: Acute Code(s): G47.33 - Obstructive sleep apnea (adult) (pediatric) (12) Afib: Status: Inactive Code(s): I48.91 - Unspecified atrial fibrillation (13) Essential (primary) hypertension: Status: Acute Code(s): I10 - Essential (primary) hypertension (14) Hypomagnesemia: Status: Resolved Code(s): E83.42 - Hypomagnesemia (15) Insomnia: Status: Acute Code(s): G47.00 - Insomnia, unspecified (16) Urine retention: Status: Resolved Code(s): R33.9 - Retention of urine, unspecified (17) Osteoporosis: Status: Acute Code(s): M81.0 - Age-related osteoporosis without current pathological fracture Qualifiers: Osteoporosis type: age-related Presence of current pathological fracture: without current pathological fracture Qualified Code(s): M81.0 - Age-related osteoporosis without current pathological fracture Plan 89 year old female with below past medical history hospitalized for fall, multiple rib fractures, right 5th metatarsal fracture, compression fracture of L2, L3, right transverse process fracture of L1, L2, treated nonsurgically, admitted to TCU with debility, here for rehabilitation, strengthening, prior to disposition determination. Debility - PT/OT. Pain - Tylenol 1000mg q8, Tramadol 50mg q6 prn pain (1-10), Lidoderm 1 patch td daily. Bowel - Miralax 17gm daily, Senna/colace 1 tablet bid. Adult immunization - Administer pneumonia vaccine, covid vaccine, flu vaccine as appropriate. DVT prophylaxis - Add SCD's. Hemorrhagic stroke - Aspirin 81mg daily. Edema - Furosemide 40mg daily. Hypertension - Metoprolol 50mg bid, Losartan 50mg daily. Hypomagnesemia - Magnesium chloride 128mg daily. Insomnia - Melatonin 3mg qhs. Muscle spasm - Robaxin 500mg tid. NEL/somnolence - Provigil 100mg daily. Restless leg syndrome - Mirapex 3mg qhs. Urinary retention - Tamsulosin 0.4mg daily. Medications at Discharge Home Medications denosumab 60 mg/mL subcutaneous syringe (Prolia) 60 mg subcut [id number] osteoporosis 10/08/19 aspirin 81 mg chewable tablet 1 tab PO DAILY Heart health 05/16/24 melatonin 3 mg capsule 3 mg PO QHS insomnia #1 cap 05/28/24 furosemide 40 mg tablet 40 mg PO DAILY edema 30 days #30 tabs 06/08/24 acetaminophen 500 mg tablet 1,000 mg (2 x 500 mg) PO Q8 #0 tabs 07/20/24 lidocaine 5 % topical patch 1 patch topical DAILY 30 days #30 ea 07/20/24 losartan 100 mg tablet 100 mg PO DAILY #0 tabs 07/20/24 magnesium chloride 64 mg (magnesium chloride) tablet,delayed release (Mag 64) 128 mg (2 x 64 mg) PO DAILY 30 days #60 tabs 07/20/24 metoprolol tartrate 100 mg tablet 100 mg PO BID 30 days #60 tabs 07/20/24 pramipexole 1 mg tablet 3 mg (3 x 1 mg) PO QHS 30 days #90 tabs 07/20/24 tamsulosin 0.4 mg capsule 0.4 mg PO DAILY@1730 30 days #30 caps 07/20/24 tramadol 50 mg tablet 50 mg PO Q6H PRN PRN Pain Score 1-10 Or Pre Pt/Ot 7 days #28 tabs 07/20/24 Hospital Course Operations None Procedures None Summary of Care Provided Minutes Spent on Discharge: 35 Hospital Course: 89 year old female with below past medical history hospitalized for fall, multiple rib fractures, right 5th metatarsal fracture, compression fracture of L2, L3, right transverse process fracture of L1, L2, treated nonsurgically, admitted to TCU with debility, here for rehabilitation, strengthening, prior to disposition determination. Discharge home alone 07/26/2024, [facility] PT/OT/SN, Hospital Bed. Hospital Bed: Patient requires a hospital bed due to needing frequent changes in position to alleviate pain, prevent ongoing pressure areas, assist in healing of current pressure areas, prevent aspiration or due to respiratory condition that is not feasible in an ordinary bed. Physical Exam Const alert General Appearance: cooperative HEENT normocephalic Eyes PERRL and EOMs intact bilaterally Neck supple, no JVD and no carotid bruits Resp normal respiratory effort, normal air movement and clear to auscultation bilaterally Cardio regular rate and regular rhythm GI normal to inspection, nondistended, normoactive bowel sounds, non-tender and non-distended Extremity normal capillary refill General Extremity: Negative for edema Skin no rashes or lesions noted General Skin Exam: no breakdown Psych affect normal Appearance: appropriate Weight / BMI Weight Weight: 76.204 kg Body Mass Index (BMI) 33.0 ABG / Lab / Microbiology Data 07/19/24 05:14 07/15/24 05:05 Microbiology: Microbiology 07/17/24 22:28 Mucosa - Nose Respiratory Panel (PCR) - Final 07/17/24 22:00 Nasal Secretion SARS-CoV-2 Antigen (Rapid) - Final 07/15/24 Unknown Stool Stool Occult Blood (NAVNEET) - Final Radiography Diagnostic Testing: Radiology Impression Chest X-Ray 07/20/24 12:55 IMPRESSION: 1. Small esophageal hiatal hernia. 2. Pulmonary venous congestion. Reading Location: [facility] D/C Instructions Discharge Diet: No restrictions Discharge Activity: Return to Normal Activity, May Shower and Use Walker Weight Bearing Status: Weight bearing as tolerated (Right lower extremity.) Call your doctor if you observe: Fever of 101 or Higher, Inability to urinate, Inability to have a bowel movement, Shortness of breath, Dizziness, Fainting spells, Swelling in the ankles, Chest pain and Uncontrolled pain DC O2, CPAP, BIPAP Needs Home O2 Discharge instructions: No Additional Instructions: Discharge home alone 07/26/2024, [facility] PT/OT/SN, Hospital Bed. Hospital Bed: Patient requires a hospital bed due to needing frequent changes in position to alleviate pain, prevent ongoing pressure areas, assist in healing of current pressure areas, prevent aspiration or due to respiratory condition that is not feasible in an ordinary bed. Please Follow Up With: Dr. Butler When: As scheduled. Meaningful Use Info Meaningful Use Meaningful Use Diagnoses (Choose all that apply): None applicable Ischemic Stroke Statin Dosing Therapy Reference: STATIN DOSE THERAPY REFERENCE: * Patients > 75 years receive moderate or high dose statin therapy. * Patients 75 years or YOUNGER should receive HIGH intensity statin dose unless contraindicated. You will be required to document reason for non-treatment if statin daily dose does not meet guidelines. HIGH DOSE STATIN THERAPY DAILY Atorvastatin > than or = to 40 mg Rosuvastatin > than or = to 20 mg Amlodipine + Atorvastatin > than or = to 2.5/40 mg Ezetimibe + Simvastatin 10/80 mg Simvastatin 80mg Discharge Plan Admission Admit Date/Time: 06/30/24 18:43 Primary Reason for Your Visit: Debility. Attending Provider: Aleks Marshall Chi Primary Care Provider: Hussein Swenson Consulting Providers: Juan José Marshall; Marisol Prather; Jaja Gross; Sofia Aguila; Monik Crocker NP; Nelsy Copeland Instructions Additional Instructions / Restrictions: Discharge home alone 07/26/2024, [facility] PT/OT/SN, Hospital Bed. Hospital Bed: Patient requires a hospital bed due to needing frequent changes in position to alleviate pain, prevent ongoing pressure areas, assist in healing of current pressure areas, prevent aspiration or due to respiratory condition that is not feasible in an ordinary bed. Discharge Orders/Prescriptions Prescriptions: New pramipexole 1 mg Tablet 3 mg PO QHS 30 Days Qty: 90 0RF metoprolol tartrate 100 mg Tablet 100 mg PO BID 30 Days Qty: 60 0RF tramadol 50 mg Tablet 50 mg PO Q6H PRN PRN (Reason: Pain Score 1-10 Or Pre Pt/Ot) 7 Days Qty: 28 0RF acetaminophen 500 mg Tablet 1,000 mg PO Q8 Qty: 0 0RF tamsulosin 0.4 mg Capsule 0.4 mg PO DAILY@1730 30 Days Qty: 30 0RF lidocaine 5 % Adhesive Patch,Medicated 1 patch topical DAILY 30 Days Qty: 30 0RF losartan 100 mg Tablet 100 mg PO DAILY Qty: 0 0RF magnesium chloride [Mag 64] 64 mg Tablet,Delayed Release (Dr/Ec) 128 mg PO DAILY 30 Days Qty: 60 0RF Continued Prolia 60 mg/mL syringe 60 mg SC [id number] Patient Comments: due February Rx Instructions: due in february aspirin 81 mg tablet,chewable 1 tab PO DAILY melatonin 3 mg capsule 3 mg PO QHS Qty: 1 0RF furosemide 40 mg Tablet 40 mg PO DAILY 30 Days Qty: 30 0RF Discontinued magnesium chloride [Mag 64] 64 mg Tablet,Delayed Release (Dr/Ec) 128 mg PO QHS Qty: 1 0RF tramadol 50 mg Tablet 50 mg PO Q6H PRN PRN (Reason: Pain Score 1-10 Or Pre Pt/Ot) 7 Days Qty: 28 0RF tamsulosin 0.4 mg Capsule 0.4 mg PO DAILY@1730 30 Days Qty: 30 0RF lidocaine 5 % Adhesive Patch,Medicated 1 patch topical DAILY 30 Days Qty: 30 0RF metoprolol tartrate 50 mg Tablet 50 mg PO BID 30 Days Qty: 60 0RF methocarbamol 500 mg tablet 500 mg PO TID magnesium oxide 400 mg (241.3 mg magnesium) tablet 400 mg PO DAILY sennosides-docusate sodium [Senna with Docusate Sodium] 8.6-50 mg tablet 1 tab-cap PO BID polyethylene glycol 3350 17 gram/dose powder 17 g PO DAILY acetaminophen 500 mg Tablet 650 mg PO Q4H PRN (Reason: pain) losartan 100 mg Tablet 50 mg PO DAILY warfarin 3 mg tablet 3 mg PO DAILY modafinil 100 mg tablet 100 mg PO DAILY pramipexole 3 mg tablet extended release 24 hr 3 mg PO QHS Referrals / Follow Up: Hussein Swenson MD [Primary Care Provider] - Jolie Rodriguez DPM [Med Staff - Active Staff] - 08/11/24 11:00 am Disposition Disposition (needs filled in before D/C Order can be placed): Home Health Service
[2024-07-20 20:04] VITALS: BP 188/65; PULSE 81
[2024-07-20] MEDS: MELATONIN 3 MG TABLET PO (20:04)
[2024-07-20] MEDS: Pramipexole Di-HCl 1 MG Tablet 3 MG PO (20:04)
[2024-07-20] MEDS: Senna/Docusate Sodium 1 Tablet PO (20:05)
[2024-07-20 20:08] VITALS: BP 188/65; PULSE 81
[2024-07-21] MEDS: traMADol 50 MG Tablet PO ×2 (06:26→21:43)
[2024-07-21] MEDS: Acetaminophen 500 MG Tablet 1000 MG PO ×3 (06:28→21:45)
[2024-07-21] MEDS: Methocarbamol 500 MG Tablet 250 MG PO ×2 (06:28→13:59)
[2024-07-21] MEDS: Losartan Potassium 100 MG Tablet PO (08:28)
[2024-07-21] MEDS: Aspirin 81 MG TAB.CHEW PO (08:28)
[2024-07-21] MEDS: Lidocaine 5% Patch 1 PATCH TOPICAL (08:29)
[2024-07-21] MEDS: Furosemide 40 MG Tablet PO (08:29)
[2024-07-21 08:30] VITALS: BP 161/53; PULSE 80
[2024-07-21] MEDS: Metoprolol Tartrate 100 MG Tablet PO ×2 (08:30→21:48)
[2024-07-21] MEDS: Magnesium Chloride 64 MG Delay Rel.Tablet 128 MG PO (08:30)
[2024-07-21] MEDS: Senna/Docusate Sodium 1 Tablet PO (08:31)
[2024-07-21] MEDS: Polyethylene Glycol 3350 17 GM PACKET PO (08:31)
[2024-07-21] MEDS: Nystatin Powder 15gm Bottle 1 APPLIC TOPICAL ×2 (08:31→21:47)
[2024-07-21 08:45] VITALS: BP 161/53; PULSE 80; RESP 16; TEMP 37.1; O2SAT 92
[2024-07-21 13:00] VITALS: PULSE 80; RESP 18; O2SAT 92
[2024-07-21] MEDS: Tamsulosin HCl 0.4 MG Capsule PO (17:30)
[2024-07-21] MEDS: Pramipexole Di-HCl 1 MG Tablet 3 MG PO (21:44)
[2024-07-21] MEDS: MELATONIN 3 MG TABLET PO (21:46)
[2024-07-21 21:48] VITALS: BP 185/65; PULSE 69
[2024-07-21 21:54] VITALS: BP 185/65; PULSE 69
[2024-07-21 23:34] VITALS: BP 153/43; PULSE 60
[2024-07-22] MEDS: Acetaminophen 500 MG Tablet 1000 MG PO ×3 (05:22→21:22)
[2024-07-22] MEDS: Methocarbamol 500 MG Tablet 250 MG PO ×2 (05:22→13:46)
[2024-07-22 05:35] VITALS: PULSE 62; RESP 16
[2024-07-22 06:06] LABS: Absolute Lymphocyte Count 1.46 X10^3/uL (0.83-4.51); Absolute Neutrophil Count 1.6 X10^3/uL (2.0-7.7); Basophil# 0.02 X10^3/uL; Basophil% 0.5 % (0-1); Eosinophil# 0.37 X10^3/uL; Hematocrit 26.5 % (37-47); Hemoglobin 8.4 g/dL (12.0-15.0); Lymphocyte # 1.46 X10^3/ul (0.83-4.51); Lymphocyte % 35.4 % (19-41); Mean Corp Hgb Conc 31.7 g/dL (32-36); Mean Corpuscular Hgb 30.3 pg (27.0-32.0); Mean Corpuscular Volume 95.7 fL (81-99); Mean Platelet Vol. 9.8 fl (6.2-12.0); Monocyte# 0.63 X10^3/uL; Monocyte% 15.3 % (0-10); NRBC Flagged by Analyzer 0 % (0-5); Neutrophil # 1.63 X10^3/uL (2.7-7.7); Neutrophil % 39.3 % (47-70); Platelet Count 210 K/mm3 (150-450); RBC Distribution Width CV 14.8 % (11.6-14.6); RBC Distribution Width SD 52.6 fl (35.1-43.9); Red Blood Count 2.77 M/mm3 (4.2-5.4); White Blood Count 4.1 K/mm3 (4.4-11.0)
[2024-07-22 06:45] LABS: Anion Gap 12 (5-15); BUN 29 mg/dL (4-19); BUN/Creat Ratio 37.8 RATIO (10-20); Calcium,Total 9.3 mg/dL (7.6-11.0); Carbon Dioxide 25.1 mmol/L (21.0-32.0); Chloride 101 mmol/L (98-108); Creatinine, Serum 0.76 mg/dL (0.70-1.20); EST Glomerular Filtration Rate 75 (>60); Estimated Creatinine Clearance 44.34 ml/min (50-250); Glucose 86 mg/dL (70-99); Potassium 4.2 mmol/L (3.3-5.1); Sodium Level 138 mmol/L (133-145)
[2024-07-22 08:42] VITALS: BP 146/50; PULSE 70
[2024-07-22] MEDS: Lidocaine 5% Patch 1 PATCH TOPICAL (08:42)
[2024-07-22] MEDS: Furosemide 40 MG Tablet PO (08:42)
[2024-07-22] MEDS: Losartan Potassium 100 MG Tablet PO (08:42)
[2024-07-22] MEDS: Aspirin 81 MG TAB.CHEW PO (08:42)
[2024-07-22] MEDS: Metoprolol Tartrate 100 MG Tablet PO ×2 (08:42→21:19)
[2024-07-22] MEDS: Senna/Docusate Sodium 1 Tablet PO ×2 (08:43→21:22)
[2024-07-22] MEDS: Magnesium Chloride 64 MG Delay Rel.Tablet 128 MG PO (08:43)
[2024-07-22] MEDS: Nystatin Powder 15gm Bottle 1 APPLIC TOPICAL ×2 (08:45→21:21)
[2024-07-22] MEDS: traMADol 50 MG Tablet PO ×2 (08:49→21:24)
[2024-07-22 08:54] VITALS: BP 146/50; PULSE 70; RESP 18; TEMP 36.8; O2SAT 94
[2024-07-22] MEDS: Tamsulosin HCl 0.4 MG Capsule PO (17:38)
[2024-07-22 21:16] VITALS: BP 173/73; PULSE 72
[2024-07-22 21:19] VITALS: BP 173/73; PULSE 72
[2024-07-22] MEDS: Pramipexole Di-HCl 1 MG Tablet 3 MG PO (21:20)
[2024-07-22] MEDS: MELATONIN 3 MG TABLET PO (21:20)
[2024-07-23] MEDS: Methocarbamol 500 MG Tablet 250 MG PO ×2 (05:34→13:28)
[2024-07-23] MEDS: Acetaminophen 500 MG Tablet 1000 MG PO ×3 (05:34→21:05)
[2024-07-23 10:00] VITALS: BP 172/67; PULSE 67; RESP 18; TEMP 36.2; O2SAT 92
[2024-07-23] MEDS: Losartan Potassium 100 MG Tablet PO (10:04)
[2024-07-23] MEDS: Magnesium Chloride 64 MG Delay Rel.Tablet 128 MG PO (10:04)
[2024-07-23] MEDS: Nystatin Powder 15gm Bottle 1 APPLIC TOPICAL ×2 (10:05→21:05)
[2024-07-23] MEDS: Aspirin 81 MG TAB.CHEW PO (10:05)
[2024-07-23] MEDS: Furosemide 40 MG Tablet PO (10:05)
[2024-07-23] MEDS: Lidocaine 5% Patch 1 PATCH TOPICAL (10:06)
[2024-07-23 10:07] VITALS: BP 172/67; PULSE 67
[2024-07-23] MEDS: Metoprolol Tartrate 100 MG Tablet PO ×2 (10:07→21:03)
--- NOTE | 2024-07-23 10:27 | NURSING ---
While applying gustavo wrap to RLE per orders, LLE noted with non pitting edema. Gustavo wrap applied to LLE as well. Denies pain/discomfort. No C/O's voiced. Patient reminded to elevate BLE as tolerated. Verbalized understanding. BLE elevated in recliner at this time.
--- NOTE | 2024-07-23 15:37 | CASEMGMT ---
BIMS () and PHQ2 (0) interviews completed on this date for MDS assessment. LUIS Mueller
[2024-07-23] MEDS: Tamsulosin HCl 0.4 MG Capsule PO (17:07)
[2024-07-23 21:00] VITALS: BP 176/74; PULSE 70
[2024-07-23 21:03] VITALS: BP 176/74; PULSE 70
[2024-07-23] MEDS: Pramipexole Di-HCl 1 MG Tablet 3 MG PO (21:04)
[2024-07-23] MEDS: MELATONIN 3 MG TABLET PO (21:04)
[2024-07-23] MEDS: Senna/Docusate Sodium 1 Tablet PO (21:05)
[2024-07-23] MEDS: traMADol 50 MG Tablet PO (21:10)
[2024-07-24] MEDS: Methocarbamol 500 MG Tablet 250 MG PO ×2 (05:47→14:23)
[2024-07-24] MEDS: Acetaminophen 500 MG Tablet 1000 MG PO ×3 (05:48→20:50)
[2024-07-24 09:07] VITALS: BP 153/48; PULSE 71; RESP 16; TEMP 36.2; O2SAT 95
[2024-07-24] MEDS: Aspirin 81 MG TAB.CHEW PO (09:11)
[2024-07-24] MEDS: Polyethylene Glycol 3350 17 GM PACKET PO (09:12)
[2024-07-24 09:13] VITALS: PULSE 71
[2024-07-24] MEDS: Magnesium Chloride 64 MG Delay Rel.Tablet 128 MG PO (09:13)
[2024-07-24] MEDS: Furosemide 40 MG Tablet PO (09:13)
[2024-07-24] MEDS: Lidocaine 5% Patch 1 PATCH TOPICAL (09:13)
[2024-07-24] MEDS: Nystatin Powder 15gm Bottle 1 APPLIC TOPICAL ×2 (09:13→20:55)
[2024-07-24] MEDS: Losartan Potassium 100 MG Tablet PO (09:13)
[2024-07-24] MEDS: Metoprolol Tartrate 100 MG Tablet PO ×2 (09:13→20:49)
[2024-07-24 14:29] VITALS: PULSE 81; RESP 16; O2SAT 96
[2024-07-24] MEDS: Tamsulosin HCl 0.4 MG Capsule PO (16:46)
[2024-07-24 20:49] VITALS: BP 161/56; PULSE 70
[2024-07-24] MEDS: Pramipexole Di-HCl 1 MG Tablet 3 MG PO (20:49)
[2024-07-24] MEDS: MELATONIN 3 MG TABLET PO (20:50)
[2024-07-24] MEDS: traMADol 50 MG Tablet PO (20:54)
[2024-07-25] MEDS: Methocarbamol 500 MG Tablet 250 MG PO ×2 (05:54→13:24)
[2024-07-25] MEDS: Acetaminophen 500 MG Tablet 1000 MG PO ×3 (05:54→21:02)
[2024-07-25 08:57] VITALS: BP 172/56; PULSE 76
[2024-07-25] MEDS: Aspirin 81 MG TAB.CHEW PO (08:57)
[2024-07-25] MEDS: Furosemide 40 MG Tablet PO (08:57)
[2024-07-25] MEDS: Lidocaine 5% Patch 1 PATCH TOPICAL (08:57)
[2024-07-25] MEDS: Losartan Potassium 100 MG Tablet PO (08:57)
[2024-07-25] MEDS: Metoprolol Tartrate 100 MG Tablet PO ×2 (08:57→21:03)
[2024-07-25] MEDS: Magnesium Chloride 64 MG Delay Rel.Tablet 128 MG PO (08:58)
[2024-07-25] MEDS: Nystatin Powder 15gm Bottle 1 APPLIC TOPICAL ×2 (08:58→21:02)
[2024-07-25 09:02] VITALS: BP 172/56; PULSE 76; RESP 18; TEMP 36.4; O2SAT 96
[2024-07-25 14:00] VITALS: PULSE 78; RESP 18; O2SAT 93
[2024-07-25] MEDS: Tamsulosin HCl 0.4 MG Capsule PO (16:50)
[2024-07-25] MEDS: Pramipexole Di-HCl 1 MG Tablet 3 MG PO (21:02)
[2024-07-25] MEDS: MELATONIN 3 MG TABLET PO (21:02)
[2024-07-25 21:03] VITALS: BP 190/66; PULSE 78
[2024-07-25 21:10] VITALS: BP 190/66; PULSE 78
[2024-07-25] MEDS: traMADol 50 MG Tablet PO (21:12)
[2024-07-25 21:40] VITALS: BP 166/57; PULSE 65
[2024-07-26 06:00] VITALS: PULSE 68; RESP 16
[2024-07-26] MEDS: Acetaminophen 500 MG Tablet 1000 MG PO (06:13)
[2024-07-26] MEDS: Methocarbamol 500 MG Tablet 250 MG PO (06:14)
[2024-07-26 08:40] VITALS: BP 138/53; PULSE 74
[2024-07-26] MEDS: Lidocaine 5% Patch 1 PATCH TOPICAL (08:40)
[2024-07-26] MEDS: Losartan Potassium 100 MG Tablet PO (08:40)
[2024-07-26] MEDS: Magnesium Chloride 64 MG Delay Rel.Tablet 128 MG PO (08:40)
[2024-07-26] MEDS: Furosemide 40 MG Tablet PO (08:40)
[2024-07-26] MEDS: Metoprolol Tartrate 100 MG Tablet PO (08:40)
[2024-07-26] MEDS: Aspirin 81 MG TAB.CHEW PO (08:40)
[2024-07-26] MEDS: Senna/Docusate Sodium 1 Tablet PO (08:42)
[2024-07-26] MEDS: traMADol 50 MG Tablet PO (08:45)
[2024-07-26 08:50] VITALS: BP 138/53; PULSE 74; RESP 16; TEMP 36.6; O2SAT 95
[2024-07-26 09:46] VITALS: BP 138/53; PULSE 74; RESP 16; TEMP 36.6; O2SAT 95
--- NOTE | 2024-07-26 09:48 | NURSING ---
Discharge paperwork reviewed with patient and family. Voices understanding. No concerns voiced at this time.
--- NOTE | 2024-07-26 11:14 | NURSING ---
Patient discharged home at this time. Assisted off unit via wheelchair at this time.
== END 2024-07-26 11:14 | disposition home health service (06) | DRG 560 ==
PROVIDERS: Admitting Provider Family Medicine Geriatric Medicine; PCP Family Medicine; Visit Provider Family Medicine Geriatric Medicine
DX: S22.42XD Multiple fractures of ribs, left side, subsequent encounter for fracture with routine healing (principal); E85.4 Organ-limited amyloidosis; G25.81 Restless legs syndrome; I48.0 Paroxysmal atrial fibrillation; E78.5 Hyperlipidemia, unspecified; E83.42 Hypomagnesemia; J44.9 Chronic obstructive pulmonary disease, unspecified; I10 Essential (primary) hypertension; G47.33 Obstructive sleep apnea (adult) (pediatric); I68.0 Cerebral amyloid angiopathy; W18.30XD Fall on same level, unspecified, subsequent encounter; S32.019D Unspecified fracture of first lumbar vertebra, subsequent encounter for fracture with routine healing; G47.00 Insomnia, unspecified; S92.351D Displaced fracture of fifth metatarsal bone, right foot, subsequent encounter for fracture with routine healing; M81.0 Age-related osteoporosis without current pathological fracture; R33.9 Retention of urine, unspecified; Z79.82 Long term (current) use of aspirin; Z79.899 Other long term (current) drug therapy; S32.030D Wedge compression fracture of third lumbar vertebra, subsequent encounter for fracture with routine healing; S32.020D Wedge compression fracture of second lumbar vertebra, subsequent encounter for fracture with routine healing; R60.0 Localized edema
CPT/HCPCS: 36415; 71046; 80048; 82274; 85014; 85018; 85025; 87633; 87811; 92523; 92610; 97110; 97112; 97116; 97162; 97166; 97530; 97535; 97802

== ENCOUNTER 2024-08-30 10:19 | Observation (INO) | payer MEDICARE, BC, SELFPAY ==
[2024-08-30] VITALS (17 sets, daily range): BP systolic 128–213; BP diastolic 40–105; PULSE 22–100; RESP 16–23; TEMP 36.7–37.6; O2SAT 91–98; BMI 30.8; BMI 31.6
--- NOTE | 2024-08-30 10:22 | CT_ITS ---
PROCEDURE: STROKE BRAIN/HEAD WITHOUT CONT 08/30/2024 REASON FOR EXAM: NEURO DEFICIT, ACUTE, STROKE SUSPECTED TECHNIQUE: Head CT without intravenous contrast. Coronal and Sagittal reconstruction series were provided. One or more dose reduction techniques were used (e.g., Automated exposure control, adjustment of the mA and/or kV according to patient size, use of iterative reconstruction technique. RADIATION DOSE SUMMARY: CTDlvol: 44.99 mGy DLP: 796.11 mGycm COMPARISON: Comparison is made with prior study dated June 26, 2024. FINDINGS: Brain: Low density in the periventricular white matter suggests mild chronic small vessel ischemic changes. Atherosclerotic calcific plaques of the cavernous portions of the carotid arteries bilaterally. CSF Spaces: Mild generalized cerebral atrophy Sinuses/Mastoids: Clear at visualized levels Bones: Unremarkable CT/STROKE Brain/Head without Cont IMPRESSION: CHRONIC CHANGES. NO ACUTE FINDINGS. Red Alert: Nothing acute The critical information above was relayed directly by me by telephone to Martin Cooper on 08/30/2024 at 10:34 am with readback verification. Reading Location: [place] [address]
--- NOTE | 2024-08-30 10:23 | EKG12_ITS ---
Test Reason : POSS STROKE Blood Pressure : */* mmHG Vent. Rate : 89 BPM Atrial Rate : 89 BPM P-R Int : 200 ms QRS Dur : 138 ms QT Int : 392 ms P-R-T Axes : 65 -36 42 degrees QTcB Int : 476 ms Normal sinus rhythm Left axis deviation Right bundle branch block Minimal voltage criteria for LVH, may be normal variant ( R in aVL ) Septal infarct (cited on or before 18-May-2022) Abnormal ECG Confirmed by JAHAIRA URBAN, OTONIEL ([id number]), editor trade journal SUDEEP GALLO ([id number]) on 09/01/2024 8:18:50 AM Referred By: Confirmed By: OTONIEL CAMPO MD
--- NOTE | 2024-08-30 10:24 | CT_ITS ---
PROCEDURE: STROKE CTA HEAD AND NECK W/CON 08/30/2024 REASON FOR EXAM: NEURO DEFICIT, ACUTE, STROKE SUSPECTED TECHNIQUE: CTA imaging of the head and neck from the aortic arch to the skull vertex with out constrast and with intravenous contrast. Coronal and Sagittal reconstruction series were provided. 3D post processing with reformations, Maximum intensity projection (MIPs) Volume rendering and Shaded surface rendering was provided. CONTRAST: Isovue 370 VOLUME: 100 mL One or more dose reduction techniques were used (e.g., Automated exposure control, adjustment of the mA and/or kV according to patient size, use of iterative reconstruction technique). RADIATION DOSE SUMMARY: CTDlvol: 15 mGy DLP: 520 mGycm COMPARISON: Same-day CT head FINDINGS: See same day CT head for discussion of nonvascular findings. Three-vessel aortic arch. Moderate calcific plaque of the left subclavian artery at its origin resulting in mild narrowing. Calcification of the right vertebral artery at its origin without narrowing. The bilateral vertebral arteries are widely patent. Calcific plaque of the bilateral carotid bulbs. No narrowing of the internal cervical carotid arteries by NASCET criteria. Calcific plaque of the bilateral carotid siphons without focal narrowing. origin of the right RECREATION THERAPIST. The bilateral anterior, middle and posterior cerebral arteries are widely patent. No aneurysm or arteriovenous malformation. Major venous structures: Unremarkable. Other findings: Prior right hemithyroidectomy. Small left thyroid nodules which do not meet criteria for dedicated follow-up. Scattered cutaneous nodules along the bilateral lower neck, likely skin tags. Mild emphysema. Cervical spondylosis. CT/STROKE CTA Head AND Neck W/Con IMPRESSION: 1. No acute large vessel occlusion, aneurysm or AVM. 2. No stenosis of the bilateral internal cervical carotid arteries by NASCET cr iteria. 3. Mild emphysema. Reading Location: [id number]
--- NOTE | 2024-08-30 10:24 | RAD_ITS ---
PROCEDURE: CHEST 1 VIEW 08/30/2024 REASON FOR EXAM: NEURO DEFICIT, ACUTE, STROKE SUSPECTED TECHNIQUE: Frontal view of the chest. COMPARISON: Chest radiograph 07/20/2024. FINDINGS: Hardware: None. Heart: The heart size is normal. Lungs: Stable emphysema and scattered areas of scarring. No focal consolidation, pleural effusion or pneumothorax. Bones: Degenerative changes are identified within the thoracic spine. RAD/Chest 1 View IMPRESSION: Stable emphysema. No acute findings. Reading Location: [id number]
--- NOTE | 2024-08-30 10:40 | ED.VIS.STROK ---
HPI History of Present Illness Chief Complaint: Stroke Alert Narrative Narrative: 89-year-old female brought to the emergency room by EMS with a prehospital stroke alert. Reportedly the patient has had prior stroke. Review of the chart shows that she had a prior intracranial hemorrhage. Patient has residual left-sided deficits. Family told EMS that they noticed increased facial droop on the left and left-sided weakness that was worse than normal. EMS noted that she had difficulty putting sentences together that she was hypertensive. Patient has a history of falls. It is reported that the patient has fallen recently and has rib pain. Daughter tells me that the patient fell and was seen her last ED visit and has had continued pain in her's. [facility] Medical History Cerebral amyloid angiopathy Essential (primary) hypertension Osteoporosis Essential (primary) hypertension History of hemorrhagic cerebrovascular accident (CVA) with residual deficit Daytime somnolence Elevated PTHrP level Venous insufficiency of both lower extremities Hypothyroidism Hyperlipidemia Hypertension Lumbar compression fracture Closed compression fracture of L2 vertebra COPD (chronic obstructive pulmonary disease) Wrist fracture, right Shoulder fracture, left Iron deficiency anemia Vitamin D deficiency Hiatal hernia Restless legs History of stress test HTN (hypertension) Scarlet fever Sleep apnea CPAP (continuous positive airway pressure) dependence Pulmonary hypertension Secondary pulmonary arterial hypertension Paroxysmal atrial fibrillation Incomplete right bundle branch block Obstructive sleep apnea Obesity Multiple fractures of ribs, left side, initial encounter for closed fracture Hypertensive emergency Pneumonia Limb weakness Difficulty balancing Thyroid disease Migraines Fatigue Arthritis Community acquired pneumonia Home Medications ?Medication ?Instructions ?Recorded ?Last Taken ?Type denosumab 60 mg/mL subcutaneous 60 mg subcut [id number] osteoporosis 10/08/19 08/24/21 History syringe (Prolia) aspirin 81 mg chewable tablet 1 tab PO DAILY Heart health 05/16/24 05/30/24 History furosemide 40 mg tablet 40 mg PO DAILY edema 30 days #30 06/08/24 Unknown Rx tabs acetaminophen 500 mg tablet 1,000 mg (2 x 500 mg) PO Q8 #0 tabs 07/20/24 Unknown Rx losartan 100 mg tablet 100 mg PO DAILY #0 tabs 07/20/24 Unknown Rx metoprolol tartrate 100 mg tablet 100 mg PO BID 30 days #60 tabs 07/20/24 Unknown Rx pramipexole 1 mg tablet 3 mg (3 x 1 mg) PO QHS 30 days #90 07/20/24 Unknown Rx tabs tramadol 50 mg tablet 50 mg PO Q6H PRN PRN Pain Score 07/20/24 Unknown Rx 1-10 Or Pre Pt/Ot 7 days #28 tabs ascorbic acid (vitamin C) 500 mg 500 mg PO DAILY supplement 08/30/24 Unknown History tablet (C-500) cholecalciferol (vitamin D3) 25 2,000 unit PO DAILY supplement 08/30/24 Unknown History mcg (1,000 unit) capsule magnesium oxide 420 mg tablet 420 mg PO DAILY 08/30/24 Unknown History Allergy/AdvReac Type Severity Reaction Status Date / Time cefazolin (From Ancef) Allergy Severe Swelling Verified 05/11/24 11:51 silk Allergy Intermediate itching Verified 05/11/24 11:51 duloxetine (From Cymbalta) Allergy Unknown Hives Verified 05/11/24 11:51 shellfish derived Allergy Unknown Other Verified 05/17/24 15:53 beet (Beet) Allergy Hives Verified 05/11/24 11:51 cantaloupe Allergy Food Verified 05/11/24 11:51 Allergy eggplant Allergy Hives Verified 05/11/24 11:51 Food Allergies: Uncoded Allergy Itching Verified 05/11/24 11:51 levofloxacin (From Levaquin) Allergy Unknown Verified 05/11/24 11:51 mold Allergy NEEDS Verified 05/11/24 11:51 FOLLOW-UP Penicillins Allergy Unknown Verified 05/11/24 11:51 tomato Allergy Food Verified 05/11/24 11:51 Allergy wheat Allergy Hives Verified 05/11/24 11:51 gabapentin (From Neurontin) AdvReac Other Verified 05/11/24 11:51 meloxicam (From Mobic) AdvReac Other Verified 05/11/24 11:51 oxycodone (From OxyIR) AdvReac Nausea Verified 05/11/24 11:51 risedronate sodium (From AdvReac Other Verified 05/11/24 11:51 Actonel) Family History Other Cancer Diabetes Heart disease Surgical History H/O radiofrequency ablation (RFA) of nerve of lumbar spine History of kyphoplasty Hx of tonsillectomy H/O partial thyroidectomy History of appendectomy History of cholecystectomy Hx of bilateral cataract extraction History of thyroid surgery Hx of appendectomy History of tonsillectomy Hx of cholecystectomy History of thymectomy History of parathyroidectomy Social History adopted: No household members: none housing: [facility] number of children: 2 current occupational status: retired current occupational exposures/hazards: No pets and animals: No leisure activities: reading and other history of recent travel: Yes ([employer] in [place]) Smoking Status: Never smoker alcohol intake: never substance use type: does not use caffeine: No ROS ROS ED ROS Narrative Generalized weakness Constitutional Constitutional ED: Denies chills, fever(s) or weight loss Eyes Eyes: Denies change in vision or diplopia ENT ENT ED: Denies ear pain, rhinorrhea or sore throat Cardiovascular Cardiovascular: Denies chest pain, orthopnea, palpitations or racing heartbeat Respiratory/Chest Respiratory/Chest: Denies cough, dyspnea or orthopnea Gastrointestinal Gastrointestinal: Denies abdominal pain, diarrhea, nausea or vomiting Genitourinary Genitourinary ED: Denies dysuria, hematuria or urinary frequency Musculoskeletal Musculoskeletal: Denies arthralgias or myalgias Integumentary Denies abscess or rash Neurologic Neurologic: Reports headache(s) and weakness; Denies paresthesias Psychiatric Psychiatric: Denies anxiety, depression, suicidal ideation or suicidal thoughts Endocrine Endocrinology: Denies polydipsia, polyphagia or polyuria Allergic/Immunologic Allergic/Immunologic ED: Denies mouth swelling, tongue swelling or urticaria EXAM Physical Exam Const Vital Signs: 08/30/24 10:23 08/30/24 10:23 08/30/24 10:25 Temperature 98.1 F Temperature Source Temporal Pulse Rate 95 Respiratory Rate 23 H Blood Pressure 180/62 H Blood Pressure Mean 101 Pulse Ox 95 Oxygen Delivery Method Room Air Room Air 08/30/24 10:53 08/30/24 11:19 08/30/24 11:30 Temperature Temperature Source Pulse Rate 91 89 87 Respiratory Rate 19 H 21 H 19 H Blood Pressure 184/66 H 155/105 H 191/76 H Blood Pressure Mean 105 121 114 Pulse Ox 95 96 96 Oxygen Delivery Method Room Air Room Air Room Air 08/30/24 12:00 08/30/24 12:30 08/30/24 13:00 Temperature Temperature Source Pulse Rate 86 98 Respiratory Rate 19 H 19 H Blood Pressure 195/87 H 205/62 H 187/67 H Blood Pressure Mean 123 109 107 Pulse Ox 98 93 Oxygen Delivery Method Room Air Room Air 08/30/24 13:00 08/30/24 13:30 08/30/24 13:30 Temperature 98.1 F Temperature Source Pulse Rate 22 L 91 92 Respiratory Rate 16 18 Blood Pressure 187/67 H 169/81 H 166/78 H Blood Pressure Mean 107 110 107 Pulse Ox 92 95 95 Oxygen Delivery Method Room Air 08/30/24 14:00 08/30/24 14:00 Temperature Temperature Source Pulse Rate 89 Respiratory Rate 18 Blood Pressure 166/78 H 166/78 H Blood Pressure Mean 107 107 Pulse Ox 95 Oxygen Delivery Method Positive well nourished and well developed General Appearance ED: well developed and NAD HEENT Reports normocephalic, head/scalp atraumatic and moist mucous membranes Eyes PERRL and EOMs intact bilaterally Neck no lymphadenopathy, supple and no JVD Resp normal respiratory effort and clear to auscultation bilaterally Cardio regular rate, regular rhythm and no murmurs GI normal to inspection, nondistended, normoactive bowel sounds and non-tender Palpation: soft Back/Spine no CVA tenderness and normal ROM Extremity normal to inspection General Extremety ED: Negative for edema General Extremity: Negative for edema Neuro oriented x3 Neuro Narrative: see NIH Exam [place] Coma Scale: document GCS findings Spontaneous Obeys Commands Oriented 15 Sensorium / Orientation: alert, oriented to person, oriented to place and oriented to time Psych mental status grossly normal Mood & Affect: Negative for depressed or tearful Skin no rashes or lesions noted and no wounds MDM MDM MDM Narrative Medical decision making narrative: Differential diagnosis includes but not limited to TIA hemorrhagic stroke ischemic stroke electrolyte abnormality anemia UTI cardiac dysrhythmia EKG shows normal sinus rhythm with a right bundle branch block. My independent interpretation of the chest x-ray is no acute process. Patient was taken from the ambulance bay to the CT scanner where CT of the brain and CTA head and neck was obtained. This was read by radiology reviewed by myself. She was taken back into the resuscitation room where she was interviewed by [facility] neurology. I do not see evidence of LVO or hemorrhagic stroke. She is certainly at risk for stroke given that she has a history of A-fib and is not on anticoagulation. History & Record Review Discussion w/independent historian: EMS personnel and Patient Additional record(s) reviewed:: Prior inpatient record, Prior ED visit and Prior labs Lab Data Attestation: I reviewed the patient's lab results. Labs: Laboratory Results - last 24 hr 08/30/24 08/30/24 08/30/24 11:04 11:25 12:26 WBC 7.5 RBC 4.14 L Hgb 12.4 Hct 38.4 MCV 92.8 MCH 30.0 MCHC 32.3 RDW Std Deviation 44.8 H RDW Coeff of Tiffani 13.1 Plt Count 337 MPV 9.6 Immature Gran % (Auto) 0.500 Neut % (Auto) 70.1 H Lymph % (Auto) 18.4 L [place] % (Auto) 8.2 Eos % (Auto) 1.9 Baso % (Auto) 0.9 Absolute Neuts (auto) 5.3 Absolute Lymphs (auto) 1.38 Nucleated RBC % 0 PT Cancelled INR Cancelled APTT Cancelled Sodium 136 Potassium 4.2 Chloride 95 L Carbon Dioxide 28.0 Anion Gap 14 BUN 31 H Creatinine 1.06 Estim Creat Clear Calc 32.40 L Est GFR (MDRD) Non-Af 51 L BUN/Creatinine Ratio 28.8 H Glucose 123 H Calcium 9.9 Troponin T High Sens 26 H Troponin T Hi Sens 2 Hr Urine Color Yellow Urine Clarity Cloudy Urine pH 8.0 Ur Specific [place] 1.010 Urine Protein 30 H Urine Glucose (UA) Normal Urine Ketones Negative Urine Occult Blood 10 H Urine Nitrite Negative Urine Bilirubin Negative Urine Urobilinogen Normal Ur Leukocyte Esterase 100 H Urine RBC 0 SEEN Urine WBC 0-5 SEEN Ur Squamous Epith Cells 0-5 SEEN Other Crystals Urine Bacteria 1+ Urine Mucus 1+ 08/30/24 13:50 WBC RBC Hgb Hct MCV MCH MCHC RDW Std Deviation RDW Coeff of Tiffani Plt Count MPV Immature Gran % (Auto) Neut % (Auto) Lymph % (Auto) [place] % (Auto) Eos % (Auto) Baso % (Auto) Absolute Neuts (auto) Absolute Lymphs (auto) Nucleated RBC % PT 13.2 INR 1.0 APTT 32.4 Sodium Potassium Chloride Carbon Dioxide Anion Gap BUN Creatinine Estim Creat Clear Calc Est GFR (MDRD) Non-Af BUN/Creatinine Ratio Glucose Calcium Troponin T High Sens Troponin T Hi Sens 2 Hr 37 H Urine Color Urine Clarity Urine pH Ur Specific [place] Urine Protein Urine Glucose (UA) Urine Ketones Urine Occult Blood Urine Nitrite Urine Bilirubin Urine Urobilinogen Ur Leukocyte Esterase Urine RBC Urine WBC Ur Squamous Epith Cells Other Crystals Urine Bacteria Urine Mucus Radiography Diagnostic Testing: Clinical Impression(s) from Imaging Studies Brain CT 08/30/24 10:22 IMPRESSION: CHRONIC CHANGES. NO ACUTE FINDINGS. Red Alert: Nothing acute The critical information above was relayed directly by me by telephone to Martin Hinton on 08/30/2024 at 10:34 am with readback verification. Reading Location: [id number] Chest X-Ray 08/30/24 10:24 IMPRESSION: Stable emphysema. No acute findings. Reading Location: [facility] Head/Neck CTA 08/30/24 10:24 IMPRESSION: 1. No acute large vessel occlusion, aneurysm or AVM. 2. No stenosis of the bilateral internal cervical carotid arteries by NASCET criteria. 3. Mild emphysema. Reading Location: [facility] EKG Initial EKG: Attestation: I personally reviewed and interpreted this EKG as follows: Comments: Normal sinus rhythm right bundle branch block noted. Ventricular rate of 89 bpm Management Discussion w/another healthcare provider: Hospitalist, Boiler House Supervisor ([facility]) and Radiologist Critical Care Time Critical Care Time: Yes Critical care time (excluding procedures): 30-74 minutes (32 minutes), Including time spent:, Discussing w/Patient &/or Family/Refund Specialist, Discussing w/Consultants, Arranging Admission or Transfer and Performing Direct Patient Care at Bedside Discharge Plan Disposition Disposition: [facility] Discharge Date/Time: 08/30/24 14:13 NIHSS NIHSS 1a. Level of Consciousness: 0 - Alert; keenly responsive 1b. LOC Questions: 0 - Answers BOTH questions correctly 1c. LOC Commands: 0 - Performs BOTH tasks correctly 2. Best Gaze: 1 - Normal 3. Visual: 0 - No visual loss 4. Facial Palsy: 0 - Normal symmetrical movements 5a. Left Arm: 0 - No drift; arm holds 90 (or 45) degrees for full 10 seconds 5b. Right Arm: 0 - No drift; arm holds 90 (or 45) degrees for full 10 seconds 6a. Left Le - No drift; leg holds 30-degree position for full 5 seconds 6b. Right Le - No drift; leg holds 30-degree position for full 5 seconds 7. Limb Ataxia: 0 - Absent 8. Sensory: 0 - Normal; no sensory loss 9. Best Language: 1 - [id number] aphasia; 10. Dysarthria: 0 - Normal 11. Extinction and Inattention: 0 - No abnormality Total: 1
[2024-08-30 11:11] LABS: Red Blood Cells-Urine 0 SEEN /hpf (0-5)
[2024-08-30 11:14] LABS: Color, Urine Yellow (Yellow); Glucose, Dipstick Normal (Normal); Ketone-Dipstick Negative (Negative); Leukocyte Esterase-Dipstick 100 /ul (Negative); Nitrite-Dipstick Negative (Negative); Occult Blood-Urine 10 /ul (Negative); Protein-Dipstick 30 mg/dl (Negative); Urine Bilirubin Dipstick Negative (Negative); Urine Clarity Cloudy (Clear); Urine Urobilinogen Normal (Normal)
[2024-08-30 11:20] LABS: Bacteria 1+ /hpf (None Seen); Mucous, Urine 1+ /hpf (<or=2+); Squamous Epithelial Cells - UA 0-5 SEEN /hpf (5-10); White Blood Cells 0-5 SEEN /hpf (0-5)
[2024-08-30 12:33] LABS: Anion Gap 14 (5-15); BUN 31 mg/dL (4-19); BUN/Creat Ratio 28.8 RATIO (10-20); Calcium,Total 9.9 mg/dL (7.6-11.0); Chloride 95 mmol/L (98-108); Creatinine, Serum 1.06 mg/dL (0.70-1.20); EST Glomerular Filtration Rate 51 (>60); Glucose 123 mg/dL (70-99); Potassium 4.2 mmol/L (3.3-5.1); Sodium Level 136 mmol/L (133-145); Troponin T High Sensitivity 26 ng/L (<=14)
[2024-08-30 12:34] LABS: Absolute Lymphocyte Count 1.38 X10^3/uL (0.83-4.51); Absolute Neutrophil Count 5.3 X10^3/uL (2.0-7.7); Basophil# 0.07 X10^3/uL; Basophil% 0.9 % (0-1); Eosinophil# 0.14 X10^3/uL; Eosinophils% 1.9 % (0-5); Hematocrit 38.4 % (37-47); Hemoglobin 12.4 g/dL (12.0-15.0); Lymphocyte # 1.38 X10^3/ul (0.83-4.51); Lymphocyte % 18.4 % (19-41); Mean Corp Hgb Conc 32.3 g/dL (32-36); Mean Corpuscular Volume 92.8 fL (81-99); Mean Platelet Vol. 9.6 fl (6.2-12.0); Monocyte# 0.62 X10^3/uL; Monocyte% 8.2 % (0-10); NRBC Flagged by Analyzer 0 % (0-5); Neutrophil # 5.27 X10^3/uL (2.7-7.7); Neutrophil % 70.1 % (47-70); Platelet Count 337 K/mm3 (150-450); RBC Distribution Width CV 13.1 % (11.6-14.6); RBC Distribution Width SD 44.8 fl (35.1-43.9); Red Blood Count 4.14 M/mm3 (4.2-5.4); White Blood Count 7.5 K/mm3 (4.4-11.0)
[2024-08-30] MEDS: traMADol 50 MG Tablet PO (12:37)
--- NOTE | 2024-08-30 14:01 | PCM.HP.STD ---
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 Last known well 1500 on 08/29, called her daughter today and crying and she is not sure what medicines to take and she was confused with some slurred speech. In the ED workup only positive for significant hypertension with a blood pressure of up to 205/62 and a troponin of 26, UA within normal limits and CT/CT with no acute process. Teleneurology evaluated and recommended admission for MRI/stroke workup. Hospitalist contacted for admission. Patient evaluated at bedside. No family available at bedside and patient very poor historian so no additional history able to be obtained other than the above. Patient only reports that she hurts has difficulty saying where, eventually will say right leg but cannot specify any further, initially would not answer where she was but then after multiple times prompting would say hospital but seem to have difficulty with getting words out and possibly also receptive component as well. [facility] Medical History Cerebral amyloid angiopathy Essential (primary) hypertension Osteoporosis Essential (primary) hypertension History of hemorrhagic cerebrovascular accident (CVA) with residual deficit Daytime somnolence Elevated PTHrP level Venous insufficiency of both lower extremities Hypothyroidism Hyperlipidemia Hypertension Lumbar compression fracture Closed compression fracture of L2 vertebra COPD (chronic obstructive pulmonary disease) Wrist fracture, right Shoulder fracture, left Iron deficiency anemia Vitamin D deficiency Hiatal hernia Restless legs History of stress test HTN (hypertension) Scarlet fever Sleep apnea CPAP (continuous positive airway pressure) dependence Pulmonary hypertension Secondary pulmonary arterial hypertension Paroxysmal atrial fibrillation Incomplete right bundle branch block Obstructive sleep apnea Obesity Multiple fractures of ribs, left side, initial encounter for closed fracture Hypertensive emergency Pneumonia Limb weakness Difficulty balancing Thyroid disease Migraines Fatigue Arthritis Community acquired pneumonia Home Medications ?Medication ?Instructions ?Recorded ?Last Taken ?Type denosumab 60 mg/mL subcutaneous 60 mg subcut [id number] osteoporosis 10/08/19 08/24/21 History syringe (Prolia) aspirin 81 mg chewable tablet 1 tab PO DAILY Heart health 05/16/24 05/30/24 History furosemide 40 mg tablet 40 mg PO DAILY edema 30 days #30 06/08/24 Unknown Rx tabs acetaminophen 500 mg tablet 1,000 mg (2 x 500 mg) PO Q8 #0 tabs 07/20/24 Unknown Rx losartan 100 mg tablet 100 mg PO DAILY #0 tabs 07/20/24 Unknown Rx metoprolol tartrate 100 mg tablet 100 mg PO BID 30 days #60 tabs 07/20/24 Unknown Rx pramipexole 1 mg tablet 3 mg (3 x 1 mg) PO QHS 30 days #90 07/20/24 Unknown Rx tabs tramadol 50 mg tablet 50 mg PO Q6H PRN PRN Pain Score 07/20/24 Unknown Rx 1-10 Or Pre Pt/Ot 7 days #28 tabs ascorbic acid (vitamin C) 500 mg 500 mg PO DAILY supplement 08/30/24 Unknown History tablet (C-500) cholecalciferol (vitamin D3) 25 2,000 unit PO DAILY supplement 08/30/24 Unknown History mcg (1,000 unit) capsule magnesium oxide 420 mg tablet 420 mg PO DAILY 08/30/24 Unknown History Allergy/AdvReac Type Severity Reaction Status Date / Time cefazolin (From Ancef) Allergy Severe Swelling Verified 05/11/24 11:51 silk Allergy Intermediate itching Verified 05/11/24 11:51 duloxetine (From Cymbalta) Allergy Unknown Hives Verified 05/11/24 11:51 shellfish derived Allergy Unknown Other Verified 05/17/24 15:53 beet (Beet) Allergy Hives Verified 05/11/24 11:51 cantaloupe Allergy Food Verified 05/11/24 11:51 Allergy eggplant Allergy Hives Verified 05/11/24 11:51 Food Allergies: Uncoded Allergy Itching Verified 05/11/24 11:51 levofloxacin (From Levaquin) Allergy Unknown Verified 05/11/24 11:51 mold Allergy NEEDS Verified 05/11/24 11:51 FOLLOW-UP Penicillins Allergy Unknown Verified 05/11/24 11:51 tomato Allergy Food Verified 05/11/24 11:51 Allergy wheat Allergy Hives Verified 05/11/24 11:51 gabapentin (From Neurontin) AdvReac Other Verified 05/11/24 11:51 meloxicam (From Mobic) AdvReac Other Verified 05/11/24 11:51 oxycodone (From OxyIR) AdvReac Nausea Verified 05/11/24 11:51 risedronate sodium (From AdvReac Other Verified 05/11/24 11:51 Actonel) Family History Other Cancer Diabetes Heart disease Surgical History H/O radiofrequency ablation (RFA) of nerve of lumbar spine History of kyphoplasty Hx of tonsillectomy H/O partial thyroidectomy History of appendectomy History of cholecystectomy Hx of bilateral cataract extraction History of thyroid surgery Hx of appendectomy History of tonsillectomy Hx of cholecystectomy History of thymectomy History of parathyroidectomy Social History adopted: No household members: none housing: [facility] number of children: 2 current occupational status: retired current occupational exposures/hazards: No pets and animals: No leisure activities: reading and other history of recent travel: Yes ([employer] in [place]) Smoking Status: Never smoker alcohol intake: never substance use type: does not use caffeine: No ROS ROS Narrative Unable to obtain secondary to patient mental status Vital Signs Vital Signs Vital Signs: 08/30/24 10:23 08/30/24 10:23 08/30/24 10:25 Temperature 98.1 F Temperature Source Temporal Pulse Rate 95 Respiratory Rate 23 H Blood Pressure 180/62 H Blood Pressure Mean 101 Pulse Ox 95 Oxygen Delivery Method Room Air Room Air 08/30/24 10:53 08/30/24 11:19 08/30/24 11:30 Temperature Temperature Source Pulse Rate 91 89 87 Respiratory Rate 19 H 21 H 19 H Blood Pressure 184/66 H 155/105 H 191/76 H Blood Pressure Mean 105 121 114 Pulse Ox 95 96 96 Oxygen Delivery Method Room Air Room Air Room Air 08/30/24 12:00 08/30/24 12:30 08/30/24 13:00 Temperature Temperature Source Pulse Rate 86 98 Respiratory Rate 19 H 19 H Blood Pressure 195/87 H 205/62 H 187/67 H Blood Pressure Mean 123 109 107 Pulse Ox 98 93 Oxygen Delivery Method Room Air Room Air 08/30/24 13:00 08/30/24 13:30 08/30/24 13:30 Temperature 98.1 F Temperature Source Pulse Rate 22 L 91 92 Respiratory Rate 16 18 Blood Pressure 187/67 H 169/81 H 166/78 H Blood Pressure Mean 107 110 107 Pulse Ox 92 95 95 Oxygen Delivery Method Room Air Weight Weight: 71.6 kg Body Mass Index (BMI) 30.8 Physical Exam Narrative General: Patient awake and alert but seems to have component of expressive and receptive aphasia HEENT: Atraumatic, normocephalic Eyes: Anicteric, normal conjunctiva, extraocular movements grossly intact Neck: Supple Respiratory: No significant wheezes or rhonchi on auscultation, normal respiratory effort Cardiovascular: Regular rate and rhythm GI: Soft and nondistended, patient unable to tell me if it is tender Extremities: Some nonpitting edema in lower extremities Musculoskeletal: Moving all extremities Neuro: Difficult to assess patient neurologically but she does have equal and strong fruit loader and is moving all extremities though moves left greater than right lower extremity and says she will not lift the right 1 higher due to pain, no overt facial asymmetry and is able to follow finger with eyes, would not complete [id number] seem to have difficulty even understanding this concept Skin: Has some chronic appearing changes on mid shins Psych: Cooperative Results Lab / Micro Data 08/30/24 12:26 08/30/24 11:25 Labs: Laboratory Results - last 24 hr 08/30/24 11:04: Urine Color Yellow, Urine Clarity Cloudy, Urine pH 8.0, Ur Specific [place] 1.010, Urine Protein 30 H, Urine Glucose (UA) Normal, Urine Ketones Negative, Urine Occult Blood 10 H, Urine Nitrite Negative, Urine Bilirubin Negative, Urine Urobilinogen Normal, Ur Leukocyte Esterase 100 H, Urine RBC 0 SEEN, Urine WBC 0-5 SEEN, Ur Squamous Epith Cells 0-5 SEEN, Other Crystals , Urine Bacteria 1+, Urine Mucus 1+ 08/30/24 11:25: PT Cancelled, INR Cancelled, APTT Cancelled, Sodium 136, Potassium 4.2, Chloride 95 L, Carbon Dioxide 28.0, Anion Gap 14, BUN 31 H, Creatinine 1.06, Estim Creat Clear Calc 32.40 L, Est GFR (MDRD) Non-Af 51 L, BUN/Creatinine Ratio 28.8 H, Glucose 123 H, Calcium 9.9, Troponin T High Sens 26 H 08/30/24 12:26: WBC 7.5, RBC 4.14 L, Hgb 12.4, Hct 38.4, MCV 92.8, MCH 30.0, MCHC 32.3, RDW Std Deviation 44.8 H, RDW Coeff of Tiffani 13.1, Plt Count 337, MPV 9.6, Immature Gran % (Auto) 0.500, Neut % (Auto) 70.1 H, Lymph % (Auto) 18.4 L, Colbert % (Auto) 8.2, Eos % (Auto) 1.9, Baso % (Auto) 0.9, Absolute Neuts (auto) 5.3, Absolute Lymphs (auto) 1.38, Nucleated RBC % 0 Imaging Radiology Impression Brain CT 08/30/24 10:22 IMPRESSION: CHRONIC CHANGES. NO ACUTE FINDINGS. Red Alert: Nothing acute The critical information above was relayed directly by me by telephone to Martin Hinton on 08/30/2024 at 10:34 am with readback verification. Reading Location: [facility]1 Chest X-Ray 08/30/24 10:24 IMPRESSION: Stable emphysema. No acute findings. Reading Location: [facility] Head/Neck CTA 08/30/24 10:24 IMPRESSION: 1. No acute large vessel occlusion, aneurysm or AVM. 2. No stenosis of the bilateral internal cervical carotid arteries by NASCET criteria. 3. Mild emphysema. Reading Location: [facility] Assessment & Plan Assessment/Plan (1) Aphasia: PLAN: Plan # Concern for worsening left-sided deficits with slurred speech -seems to have component of expressive and receptive aphasia on my exam and was reluctant to move right leg, not left -Admit to tele -CT head w/ no acute process in ED -CTA head and neck with no LVO -MRI ordered -NIH q4hr -asa, statin -Echo ordered -PT/OT/Speech eval -Teleneuro consult ordered -Hold BP medications to allow for permissive hypertension for 24 hours unless SBP greater than 220 or DBP greater than 120 or until stroke is ruled out - Cannot rule out metabolic component given odd presentation and lack of focal deficits on my exam, UA not overly infectious, see in the history where she was on CPAP at some point, patient unable to answer reliably no patient available at bedside so unclear if she still supposed to be using CPAP, will order VBG to assess for any hypercapnia - Patient also appears to have some dehydration as below, gentle IV fluids - Appears she is intermittently been feeling tramadol, given her slight dehydration and increased kidney function with tramadol prescription this could be toxic encephalopathy, will hold tramadol at this time - Check UDS - Check ammonia, TSH, B12 #R leg pain - Patient reporting some right leg pain and reluctance to lift leg but cannot vocalize any of the symptoms - Will check hip and knee x-rays # History of paroxysmal atrial fibrillation -Presently in normal sinus rhythm -Coumadin stopped after intracranial hemorrhage 04/2024 # Restless leg syndrome -continue patient's home medication regimen #Hypertension - Hold to allow for permissive hypertension as above # Increased creatinine - Patient does have increase in all 3 cell lines and BUN and creatinine do seem to be at her baseline - Gentle IV fluids -Hold Lasix - Monitor intake and output #NEL - Appears in history that she at least at some point was on CPAP, checking VBG, if able to verify patient is on CPAP can continue here patient is compliant or will place patient on BiPAP if hypercapnic #DVT ppx: SCDs Layla Fonseca MD
[2024-08-30 14:08] LABS: Partial Thromboplast Time 32.4 Seconds (24.1-36.2); Prothrombin Time (Protime)PT. 13.2 SECONDS (11.7-14.9)
[2024-08-30 14:20] LABS: Troponin T High Sens 2 HR 37 ng/L (<=14)
--- NOTE | 2024-08-30 14:32 | ECHOCS_ITS ---
Reason For Study Reason For Study: TIA/CVA Procedure This was a 2D Doppler, Color Flow transthoracic echocardiogram. The study was technically difficult. Contrast injection was performed. Exam performed portable in patient room. Left Ventricle Normal LV size. Left ventricular systolic function is normal. The left ventricular ejection fraction is 55 %. No regional wall motion abnormalities noted. Right Ventricle Normal RV size. Normal systolic function. Atria Normal left atrium. Normal right atrium. Mitral Valve There is mild mitral annular calcification. Tricuspid Valve Normal tricuspid valve. Aortic Valve The aortic valve is not well visualized. Pulmonic Valve Normal pulmonic valve. Great Vessels Normal aortic root. The pulmonary artery is normal size. Inferior vena cava collapse with respiration. Pericardium/Pleural No pericardial effusion. Medication Diluted definity 3ml given slow IV push to enhance endocardial definition. MMode/2D Measurements & Calculations LVIDd: 4.4 cm IVSd: 0.90 cm Ao root diam: 3.4 cm LVIDs: 2.9 cm LVPWd: 0.78 cm RVDd: 3.9 cm FS: 33.9 % LAV(MOD-bp): 48.6 ml LVAd ap4: 31.7 cm2 SV(MOD-sp4): 60.9 ml LAV(MOD-bp) Indexed: 28.9 ml/m2 LVLd ap4: 7.3 cm SI(MOD-sp4): 36.1 ml/m2 LAV(MOD-sp2): 49.1 ml EDV(MOD-sp4): 111.3 ml LAV(MOD-sp4): 47.4 ml EDV(sp4-el): 117.6 ml LVAs ap4: 19.9 cm2 LVLs ap4: 6.4 cm ESV(MOD-sp4): 50.4 ml ESV(sp4-el): 52.8 ml EF(MOD-sp4): 54.7 % EF(sp4-el): 55.1 % SV(sp4-el): 64.8 ml LA A4 area: 17.8 cm2 LA dimension(2D): 4.2 cm RA A4 area: 15.2 cm2 TAPSE: 2.3 cm Time Measurements MV dec time: 0.19 sec Doppler Measurements & Calculations MV E max burton: 103.6 cm/sec Lat Peak E' Burton: 7.7 cm/sec Med Peak E' Burton: 6.8 cm/sec MV A max burton: 172.9 cm/sec E/E' lat: 13.4 E/E' med: 15.3 MV E/A: 0.60 MV V2 max: 198.7 cm/sec MV P1/2t max burton: 127.5 cm/sec Ao V2 max: 161.8 cm/sec MV max P.8 mmHg MV P1/2t: 83.8 msec Ao max P.5 mmHg MV V2 mean: 111.4 cm/sec MV dec slope: 445.4 cm/sec2 Ao V2 mean: 101.9 cm/sec MV mean P.0 mmHg MVA(P1/2t): 2.6 cm2 Ao mean P.8 mmHg MV V2 VTI: 36.2 cm Ao V2 VTI: 31.3 cm AV (velocity ratio): 0.87 AI end-d burton: 340.4 cm/sec LV V1 max: 129.4 cm/sec MR max burton: 652.5 cm/sec LV V1 max P.7 mmHg MR max P.3 mmHg LV V1 mean P.5 mmHg LV V1 mean: 88.3 cm/sec LV V1 VTI: 27.1 cm TR max burton: 297.3 cm/sec TR max P.4 mmHg ECHO/Echo Complete W/ Contrast Interpretation Summary Normal LV size. Left ventricular systolic function is normal. The left ventricular ejection fraction is 55 %. Contrast injection was performed. Ordering Physician: Layla Fonseca Performed By: Brodwolf, Devante, RCS
--- NOTE | 2024-08-30 14:43 | RAD_ITS ---
PROCEDURE: HIP, UNI W/ PELVIS 2-3 VIEWS 08/30/2024 REASON FOR EXAM: R HIP/LEG PAIN TECHNIQUE: 3 (1) view of the right hip FINDINGS: Bones: No acute fracture or dislocation. Joints: Severe joint space narrowing consistent with severe arthrosis. Soft tissues: Soft tissues are unremarkable. Other: RAD/HIP, UNI W/ Pelvis 2-3 Views IMPRESSION: Severe arthrosis. Reading Location: [id number]
[2024-08-30] MEDS: Aspirin 81 MG TAB.CHEW PO (15:30)
[2024-08-30] MEDS: 0.9% Normal Saline (1000mL) 1,000 ML 50 ML IV (15:31)
[2024-08-30 15:54] LABS: Troponin T High Sens 4 HR 38 ng/L (<=14)
--- NOTE | 2024-08-30 16:42 | CM.ED ---
Social Work Reason for visit: Stroke Alert SW spoke with patients daughter who stated she has talked to her mother on the phone and felt that patient was not making sense and slurring her words. Daughter states patient has had a previous stroke so she was concerned for another. Emotional support given. No further needs identified. Ania Reeves, [employer] FINDER, DITCHING MACHINE ENGINEER
[2024-08-30 16:54] LABS: Blood Gas Specimen Type VEN; O2 Delivery Device Not entered; SITE Not entered; Time Given 16:51:18; VBG BASE EXCESS 10 mmol/L (-1.0-3.5); VBG Bicarbonate 30 mmol/L (22-26); VBG PO2 170 mmHg (25-40); VBG SO2 100 % (50-70); VBG TCO2 31 mmol/L (23-33); VBG pCO2 22.7 mmHg (41-51); VBG pH 7.73 (7.32-7.42)
[2024-08-30 17:22] LABS: Ammonia 14.8 umol/L (11-51)
[2024-08-30] MEDS: Acetaminophen 325 MG Tablet 650 MG PO (17:32)
[2024-08-30 17:39] LABS: Thyroid Stim Hormone (TSH) 0.881 uIU/mL (0.300-4.200); Vitamin B12 338 pg/mL (180-914)
[2024-08-30 18:03] LABS: Allen Test Positive; Base Excess 12 mmol/L (-2 to +2); Bicarbonate 35.3 mmol/L (22-26); Blood Gas Specimen Type ART; Mode Not entered; O2 Delivery Device Room Air; PO2 64 mmHG (75-100); SITE R Radial; SO2 93 % (95-99); Total Carbon Dioxide 37 mmol/L; pCO2 45.8 mmHg (35-45)
[2024-08-30] MEDS: Pramipexole Di-HCl 1 MG Tablet 3 MG PO (21:31)
[2024-08-30] MEDS: Atorvastatin Calcium 40 MG Tablet PO (21:32)
--- NOTE | 2024-08-30 22:30 | RAD_ITS ---
PROCEDURE: KNEE 1 OR 2 VIEWS 08/30/2024 REASON FOR EXAM: R KNEE AND HIP PAIN TECHNIQUE: 2 view(s) of the right knee FINDINGS: Bones: No acute fracture or dislocation. Joints: Mild joint space narrowing and osteophyte formation consistent with mild arthrosis. Effusion: Small joint effusion. Soft tissues: Soft tissues are unremarkable. Other: RAD/Knee 1 or 2 Views IMPRESSION: Mild arthrosis with a small joint effusion. Reading Location: [id number]
[2024-08-30] MEDS: 0.9% Saline Lock 10 ML Syringe IV (23:38)
[2024-08-30] MEDS: MELATONIN 3 MG TABLET PO (23:39)
[2024-08-31] VITALS (8 sets, daily range): BP systolic 138–186; BP diastolic 44–46; PULSE 72–98; RESP 15–18; TEMP 36.4–36.8; O2SAT 94–99; BMI 31.6
--- NOTE | 2024-08-31 01:23 | CPS ---
Pt family brought her machine in for night time use. RT put water in reservoir. Unaware if it is bipap or cpap, But pt was tolerating it well.
[2024-08-31 06:11] LABS: Absolute Lymphocyte Count 1.52 X10^3/uL (0.83-4.51); Absolute Neutrophil Count 4.5 X10^3/uL (2.0-7.7); Basophil# 0.06 X10^3/uL; Basophil% 0.9 % (0-1); Eosinophil# 0.17 X10^3/uL; Eosinophils% 2.5 % (0-5); Hematocrit 32.2 % (37-47); Hemoglobin 10.3 g/dL (12.0-15.0); Lymphocyte # 1.52 X10^3/ul (0.83-4.51); Mean Corpuscular Hgb 29.9 pg (27.0-32.0); Mean Corpuscular Volume 93.3 fL (81-99); Mean Platelet Vol. 9.6 fl (6.2-12.0); Monocyte# 0.65 X10^3/uL; Monocyte% 9.4 % (0-10); NRBC Flagged by Analyzer 0 % (0-5); Neutrophil # 4.49 X10^3/uL (2.7-7.7); Neutrophil % 64.8 % (47-70); Platelet Count 338 K/mm3 (150-450); RBC Distribution Width CV 13.1 % (11.6-14.6); RBC Distribution Width SD 44.6 fl (35.1-43.9); Red Blood Count 3.45 M/mm3 (4.2-5.4); White Blood Count 6.9 K/mm3 (4.4-11.0)
[2024-08-31 06:46] LABS: ALB/GLOB Ratio 1.2 RATIO (0.9-2.4); AST(SGOT) 24 U/L (<=31); Alanine Aminotransfer ALT/SGPT 5 U/L (<=34); Albumin, Serum 3.6 g/dL (3.4-4.8); Alkaline Phosphatase 69 U/L (35-104); Anion Gap 14 (5-15); BUN 25 mg/dL (4-19); BUN/Creat Ratio 27.1 RATIO (10-20); Carbon Dioxide 27.1 mmol/L (21.0-32.0); Chloride 94 mmol/L (98-108); Cholesterol 222 mg/dL (<=200); Creatinine, Serum 0.94 mg/dL (0.70-1.20); EST Glomerular Filtration Rate 59 (>60); Globulin 2.9 g/dL (2.2-4.2); Glucose 102 mg/dL (70-99); High Density Lipoprotein 90 mg/dL; Low Density Lipoprotein Calc. 119 mg/dL; Potassium 3.6 mmol/L (3.3-5.1); Protein, Total 6.5 g/dL (5.9-8.4); Sodium Level 135 mmol/L (133-145); Triglycerides 66 mg/dL; Very Low Density Lipoprotein 13 mg/dL (5-40); cholesterol:hdl ratio screen 2.46
--- NOTE | 2024-08-31 08:03 | PCM.PN.HOSP ---
Reason for Visit Reason for Visit: Diagnoses Aphasia (08/30/24) Objective Data Objective Data Vital Signs: Vital Signs Temp Pulse Resp BP Pulse Ox O2 Del Method FiO2 97.5 F L 80 18 186/46 H 96 Room Air 21 08/31/24 07:19 08/31/24 07:19 08/31/24 07:19 08/31/24 07:19 08/31/24 07:19 08/31/24 07:19 08/30/24 23:35 Oxygen Delivery Method Room Air Weight: 161 lb 12.791 oz Body Mass Index (BMI) 31.6 Intake & Output: Intake and Output for Last 24 Hours 08/29/24 08/30/24 08/31/24 23:59 23:59 23:59 Intake Total 120 / 120 473.33 / 473.33 Output Total 750 / 1100 450 / 450 Balance -630 / -980 23.33 / 23.33 Lab / Micro Data 08/31/24 05:35 08/31/24 05:35 Labs: Laboratory Results - last 24 hr 08/30/24 11:04: Urine Color Yellow, Urine Clarity Cloudy, Urine pH 8.0, Ur Specific [place] 1.010, Urine Protein 30 H, Urine Glucose (UA) Normal, Urine Ketones Negative, Urine Occult Blood 10 H, Urine Nitrite Negative, Urine Bilirubin Negative, Urine Urobilinogen Normal, Ur Leukocyte Esterase 100 H, Urine RBC 0 SEEN, Urine WBC 0-5 SEEN, Ur Squamous Epith Cells 0-5 SEEN, Other Crystals , Urine Bacteria 1+, Urine Mucus 1+ 08/30/24 11:25: PT Cancelled, INR Cancelled, APTT Cancelled, Sodium 136, Potassium 4.2, Chloride 95 L, Carbon Dioxide 28.0, Anion Gap 14, BUN 31 H, Creatinine 1.06, Estim Creat Clear Calc 32.40 L, Est GFR (MDRD) Non-Af 51 L, BUN/Creatinine Ratio 28.8 H, Glucose 123 H, Calcium 9.9, Troponin T High Sens 26 H 08/30/24 12:26: WBC 7.5, RBC 4.14 L, Hgb 12.4, Hct 38.4, MCV 92.8, MCH 30.0, MCHC 32.3, RDW Std Deviation 44.8 H, RDW Coeff of Tiffani 13.1, Plt Count 337, MPV 9.6, Immature Gran % (Auto) 0.500, Neut % (Auto) 70.1 H, Lymph % (Auto) 18.4 L, [place] % (Auto) 8.2, Eos % (Auto) 1.9, Baso % (Auto) 0.9, Absolute Neuts (auto) 5.3, Absolute Lymphs (auto) 1.38, Nucleated RBC % 0 08/30/24 13:35: Vitamin B12 338, TSH 0.881 08/30/24 13:50: PT 13.2, INR 1.0, APTT 32.4, Troponin T Hi Sens 2 Hr 37 H 08/30/24 15:23: Troponin T Hi Sens 4Hr 38 H 08/30/24 16:40: Ammonia 14.8 08/31/24 05:35: WBC 6.9, RBC 3.45 L, Hgb 10.3 L, Hct 32.2 L, MCV 93.3, MCH 29.9, MCHC 32.0, RDW Std Deviation 44.6 H, RDW Coeff of Tiffani 13.1, Plt Count 338, MPV 9.6, Immature Gran % (Auto) 0.400, Neut % (Auto) 64.8, Lymph % (Auto) 22.0, Wilkinson % (Auto) 9.4, Eos % (Auto) 2.5, Baso % (Auto) 0.9, Absolute Neuts (auto) 4.5, Absolute Lymphs (auto) 1.52, Nucleated RBC % 0, Sodium 135, Potassium 3.6, Chloride 94 L, Carbon Dioxide 27.1, Anion Gap 14, BUN 25 H, Creatinine 0.94, Estim Creat Clear Calc 37.00 L, Est GFR (MDRD) Non-Af 59 L, BUN/Creatinine Ratio 27.1 H, Glucose 102 H, Calcium 10.0, Total Bilirubin 0.40, AST 24, ALT 5, Alkaline Phosphatase 69, Total Protein 6.5, Albumin 3.6, Globulin 2.9, Albumin/Globulin Ratio 1.2, Triglycerides 66, Cholesterol 222 H, LDL Cholesterol, Calc 119, VLDL Cholesterol 13, HDL Cholesterol 90, Cholesterol/HDL Ratio 2.46 ABG Data ABG results: ABG 08/30/24 08/30/24 16:49 17:59 Specimen Type ASHER ART Sample Site Not entered R Radial pH 7.50 H Bicarbonate Actual 35.3 H Total CO2 37 Base Excess 12 H O2 Saturation 93 L O2 % 21.0 ABG pCO2 45.8 H ABG pO2 64 L Yves Test Positive VBG pH 7.73 H* VBG pO2 170 H VBG HCO3 30 H VBG Total CO2 31 VBG O2 Sat (Calc) 100 H VBG Base Excess 10 H POC Mix VBG pCO2 Pt Tmp 22.7 L O2 Delivery Device Not entered Room Air Vent Mode Not entered Crit Call To/Read Back Yes Blood Gas Notified Whom kiara Blood Gas Notified Time 16:51:18 Radiography Diagnostic Testing: Radiology Impression Brain CT 08/30/24 10:22 IMPRESSION: CHRONIC CHANGES. NO ACUTE FINDINGS. Red Alert: Nothing acute The critical information above was relayed directly by me by telephone to Martin Hinton on 08/30/2024 at 10:34 am with readback verification. Reading Location: [facility] Chest X-Ray 08/30/24 10:24 IMPRESSION: Stable emphysema. No acute findings. Reading Location: [facility] Head/Neck CTA 08/30/24 10:24 IMPRESSION: 1. No acute large vessel occlusion, aneurysm or AVM. 2. No stenosis of the bilateral internal cervical carotid arteries by NASCET criteria. 3. Mild emphysema. Reading Location: [facility] Echocardiogram 08/30/24 14:32 Interpretation Summary Normal LV size. Left ventricular systolic function is normal. The left ventricular ejection fraction is 55 %. Contrast injection was performed. Ordering Physician: Layla Fonseca Performed By: Devante Tripp RCS Hip/Pelvis X-Ray 08/30/24 14:43 IMPRESSION: Severe arthrosis. Reading Location: [facility] Knee X-Ray 08/30/24 22:30 IMPRESSION: Mild arthrosis with a small joint effusion. Reading Location: [facility] Assessment & Plan Assessment/Plan (1) Aphasia: PLAN: Plan 89-year-old female was admitted for prehospital stroke alert of increased left-sided facial droop and left-sided weakness, worse than her usual left-sided residual deficit. She also had difficulty in putting sentence and was hypotensive. # Mild slurred speech, on top of left-sided chronic residual weakness from previous stroke probably due to acute encephalopathy probably metabolic/toxic/polypharmacy or hypertension: Patient is being admitted in PCU. PT, OT, speech therapy/swallow evaluation and management, nursing NIH stroke scale, BP and glucose monitoring and control as per stroke protocol. TSH 0.881. Fasting profile shows TC 222, LDL 119. MRI brain was negative for acute intracranial abnormality. 2D echo with bubble contrast study and was negative for PFO. Normal left atrium. Patient was seen by teleneurologist, [facility]. As per his note patient was not able to get the words out and had double vision probably attributed to her hypertension. He reviewed the MRI images and was negative for new ischemia. Patient is past 24 hours and her antihypertensive medications resumed with holding parameters. Patient was evaluated by PT and recommended additional therapy required to SNF. ABG was done 7.50/pCO2 45.8/64 suggestive of mild metabolic alkalosis. Patient was also dehydrated and looks better in the morning. Patient also on tramadol and has kidney dysfunction therefore probability of toxic metabolic encephalopathy. U tox is ordered. Serum ammonia normal. B12 338, normal. #R leg pain - Patient reporting some right leg pain and reluctance to lift leg. In the morning she said she feels right leg weakness which is chronic. X-ray of right hip pelvis and knee x-ray reported severe arthrosis # History of paroxysmal atrial fibrillation -Presently in normal sinus rhythm -Coumadin stopped after intracranial hemorrhage 04/2024 # Restless leg syndrome -continue patient's home medication regimen #Hypertension As mentioned above, antihypertensive medications resumed # Increased creatinine - Patient does have increase in all 3 cell lines and BUN and creatinine do seem to be at her baseline - Gentle IV fluids -Hold Lasix - Monitor intake and output #NEL - Appears in history that she at least at some point was on CPAP, checking VBG, if able to verify patient is on CPAP can continue here patient is compliant or will place patient on BiPAP if hypercapnic #DVT ppx: SCDs Charges/Coding Visit Charges Inpatient E&M: 79509 Subs Hosp L2
[2024-08-31] MEDS: Aspirin 81 MG TAB.CHEW PO (08:15)
[2024-08-31] MEDS: LORazepam 0.5 MG Tablet PO (08:49)
--- NOTE | 2024-08-31 09:00 | MRI_ITS ---
PROCEDURE: BRAIN WITHOUT CONTRAST 08/31/2024 REASON FOR EXAM: CONCERN FOR CVA TECHNIQUE: Noncontrast brain MRI. Multiplanar and multisequence images were obtained. COMPARISON: 08/30/2024 FINDINGS: No diffusion restriction to suggest acute/subacute ischemia. No evidence of acute intracranial hemorrhage, midline shift or mass effect. Linear cortical blooming artifact in the high right parietal lobe most consistent with chronic microhemorrhage. Mild generalized cerebral atrophy. Mild scattered periventricular, subcortical and deep white matter hyperintense FLAIR signal likely related to chronic small-vessel ischemic disease. No hydrocephalus. Globes are intact. Paranasal sinuses and mastoid air cells are relatively clear. MRI/Brain without Contrast IMPRESSION: 1. No acute intracranial abnormality. 2. Chronic findings as above. Reading Location: [facility]
[2024-08-31] MEDS: Ascorbic Acid 500 MG Tablet PO (12:01)
[2024-08-31] MEDS: Acetaminophen 500 MG Tablet 1000 MG PO (13:15)
--- NOTE | 2024-08-31 14:15 | CHAPLAIN ---
Type of Pastoral Visit __x_ Initial Visit ___ Follow-up Visit ___ On-call Visit ___ General Patient Visit ___ Spiritual Assessment ___ Family Conference ___ Bereavement ___ Rapid Response ___ Code Blue ___ Other (describe below) Pastoral Care Referral From _x__ Patient ___ Family ___ Nurse ___ Physician ___ Coverer ___ Beater Dumper ___ Other (describe below) Sacrament/Intervention _x__ Active listening ___ Anointing ___ Jehovah'S Witness ___ Bereavement ___ Communion _x__ Beth exploration ___ ___ Life review _x__ Prayer ___ Reconciliation ___ Sacrament of Sick _x__ Supportive presence ___ Wedding ___ Other (describe below) Pastoral Comments patient recognizes this hop trainer from previous visits to the hospital; pt states that she is being checked out for a stroke and gives details on what happened; pt says that this is discouraging and she is asking God why he is not done with her yet on earth if this is going to keep happening with references to multiple hospital admissions in 2024; pt affirms her beth in God and in His plan; pt admits to some spiritual questions for herself; pt is engaged in the conversation but a couple of times she made inaccurate comments such as my mother was with me when I had this stroke; pt welcomes time to talk with the hop trainer and prayer; RN came at this time to start the neurological exam on the screen
--- NOTE | 2024-08-31 14:48 | STROKE.CONS ---
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 Patient was found to be hypertensive to 200s on arrival and has much improved since arrival with improvement in her blood pressure. MRI negative for acute stroke. TTE without acute thrombus. Symptoms likely recrudescence of prior stroke/ICH symptoms in the setting of severely elevated blood pressure. -? Recommendations: No further workup recommended from a neurovascular standpoint -? OK for goal normotension -? Optimize medically as you are -? Continue ASA and statin for secondary stroke risk reduction. She does have pAF without AC due to prior IPH. Although she has reported Cerebral Amyloid Angiopathy on her problem list, her SWI series on MRI Brain is not particularly convincing of this diagnosis. Would recommend close follow up with Neurology and Cardiology about discussion about nursing home plans for timing of anticoagulation versus assessment of AFIB burden and discussion for procedures such as WATCHMAN to avoid AC in the future. 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 Patient was found to be hypertensive to 200s on arrival and has much improved since arrival with improvement in her blood pressure. MRI negative for acute stroke. Symptoms likely recrudescence of prior stroke/ICH symptoms in the setting of severely elevated blood pressure. Patient reports that she felt horrible yesterday and had blurry vision and was not able to formulate her words. She states she is feeling much better today. She states since her stroke or brain bleed lsat year she has had double vision for which she has been prescribed prism glasses and that has helped. That was also worse, but now is better. She states she had broken her left shoulder so she is not able to use it as well as her right. Overall on examination she is doing well and has some comparitive mild weakness of her LUE compared to her right. She however does not have any drift on testing. Her speech is fluent. NIHSS 2 for bilateral lower extremity drift, which patient reports as chronic and appears nonfocal. [facility] Medical History (Updated 08/30/24 @ 15:15 by Rebeca De La Cruz) History of hemorrhagic cerebrovascular accident (CVA) with residual deficit Daytime somnolence Elevated PTHrP level Venous insufficiency of both lower extremities Cerebral amyloid angiopathy Hypothyroidism Hyperlipidemia Essential (primary) hypertension Hypertension Lumbar compression fracture Closed compression fracture of L2 vertebra COPD (chronic obstructive pulmonary disease) Wrist fracture, right Shoulder fracture, left Iron deficiency anemia Osteoporosis Vitamin D deficiency Hiatal hernia Restless legs History of stress test HTN (hypertension) Scarlet fever Sleep apnea Pulmonary hypertension Secondary pulmonary arterial hypertension Paroxysmal atrial fibrillation Incomplete right bundle branch block Obstructive sleep apnea Obesity Essential (primary) hypertension Multiple fractures of ribs, left side, initial encounter for closed fracture Hypertensive emergency Pneumonia Limb weakness Difficulty balancing Thyroid disease Migraines Fatigue Arthritis Community acquired pneumonia Home Medications ?Medication ?Instructions ?Recorded ?Last Taken ?Type denosumab 60 mg/mL subcutaneous 60 mg subcut [id number] osteoporosis 10/08/19 08/24/21 History syringe (Prolia) aspirin 81 mg chewable tablet 1 tab PO DAILY Heart health 05/16/24 05/30/24 History furosemide 40 mg tablet 40 mg PO DAILY edema 30 days #30 06/08/24 Unknown Rx tabs acetaminophen 500 mg tablet 1,000 mg (2 x 500 mg) PO Q8 #0 tabs 07/20/24 Unknown Rx losartan 100 mg tablet 100 mg PO DAILY #0 tabs 07/20/24 Unknown Rx metoprolol tartrate 100 mg tablet 100 mg PO BID 30 days #60 tabs 07/20/24 Unknown Rx pramipexole 1 mg tablet 3 mg (3 x 1 mg) PO QHS 30 days #90 07/20/24 Unknown Rx tabs tramadol 50 mg tablet 50 mg PO Q6H PRN PRN Pain Score 07/20/24 Unknown Rx 1-10 Or Pre Pt/Ot 7 days #28 tabs ascorbic acid (vitamin C) 500 mg 500 mg PO DAILY supplement 08/30/24 Unknown History tablet (C-500) cholecalciferol (vitamin D3) 25 2,000 unit PO DAILY supplement 08/30/24 Unknown History mcg (1,000 unit) capsule magnesium oxide 420 mg tablet 420 mg PO DAILY 08/30/24 Unknown History Allergy/AdvReac Type Severity Reaction Status Date / Time cefazolin (From Ancef) Allergy Severe Swelling Verified 05/11/24 11:51 silk Allergy Intermediate itching Verified 05/11/24 11:51 duloxetine (From Cymbalta) Allergy Unknown Hives Verified 05/11/24 11:51 shellfish derived Allergy Unknown Other Verified 05/17/24 15:53 beet (Beet) Allergy Hives Verified 05/11/24 11:51 cantaloupe Allergy Food Verified 05/11/24 11:51 Allergy eggplant Allergy Hives Verified 05/11/24 11:51 Food Allergies: Uncoded Allergy Itching Verified 05/11/24 11:51 levofloxacin (From Levaquin) Allergy Unknown Verified 05/11/24 11:51 mold Allergy NEEDS Verified 05/11/24 11:51 FOLLOW-UP Penicillins Allergy Unknown Verified 05/11/24 11:51 tomato Allergy Food Verified 05/11/24 11:51 Allergy wheat Allergy Hives Verified 05/11/24 11:51 gabapentin (From Neurontin) AdvReac Other Verified 05/11/24 11:51 meloxicam (From Mobic) AdvReac Other Verified 05/11/24 11:51 oxycodone (From OxyIR) AdvReac Nausea Verified 05/11/24 11:51 risedronate sodium (From AdvReac Other Verified 05/11/24 11:51 Actonel) Family History Other Cancer Diabetes Heart disease Surgical History H/O radiofrequency ablation (RFA) of nerve of lumbar spine History of kyphoplasty Hx of tonsillectomy H/O partial thyroidectomy History of appendectomy History of cholecystectomy Hx of bilateral cataract extraction History of thyroid surgery Hx of appendectomy History of tonsillectomy Hx of cholecystectomy History of thymectomy History of parathyroidectomy Social History adopted: No household members: none housing: condominium number of children: 2 current occupational status: retired current occupational exposures/hazards: No pets and animals: No leisure activities: reading and other history of recent travel: Yes (concert in [place]) Smoking Status: Never smoker alcohol intake: never substance use type: does not use caffeine: No Vital Signs Vital Signs Vital Signs: 08/30/24 17:00 08/30/24 17:06 08/30/24 17:16 Temperature 99.1 F Temperature Source Oral Pulse Rate 91 Respiratory Rate 16 Respiratory Effort Normal Non-Labored Respiratory Depth Normal Respiratory Pattern Normal Blood Pressure 213/67 H Blood Pressure Mean 115 Blood Pressure Source Monitor Blood Pressure Position Semi-Fowlers Blood Pressure Location Right Arm Pulse Ox 96 98 Oxygen Delivery Method Room Air Room Air Room Air Fraction of Inspired Oxygen (FIO2) 08/30/24 18:53 08/30/24 19:00 08/30/24 19:25 Temperature 99.7 F H Temperature Source Oral Pulse Rate 90 100 Respiratory Rate 16 Respiratory Effort Respiratory Depth Respiratory Pattern Blood Pressure 159/48 H 174/61 H Blood Pressure Mean 85 98 Blood Pressure Source Manual Monitor Blood Pressure Position Semi-Fowlers Semi-Fowlers Blood Pressure Location Right Arm Right Arm Pulse Ox 92 Oxygen Delivery Method Room Air Fraction of Inspired Oxygen (FIO2) 08/30/24 23:10 08/30/24 23:19 08/30/24 23:35 Temperature 98.4 F Temperature Source Oral Pulse Rate 88 Respiratory Rate 16 Respiratory Effort Normal Non-Labored Respiratory Depth Normal Respiratory Pattern Normal Blood Pressure 128/40 H Blood Pressure Mean 69 Blood Pressure Source Monitor Blood Pressure Position Semi-Fowlers Blood Pressure Location Right Forearm Pulse Ox 92 Oxygen Delivery Method Bi-pap Room Air Fraction of Inspired Oxygen (FIO2) 08/31/24 03:00 08/31/24 03:19 08/31/24 03:26 Temperature 97.9 F Temperature Source Oral Pulse Rate 82 72 Respiratory Rate 15 Respiratory Effort Normal Non-Labored Respiratory Depth Normal Respiratory Pattern Normal Blood Pressure 155/45 H Blood Pressure Mean 81 Blood Pressure Source Monitor Blood Pressure Position Semi-Fowlers Blood Pressure Location Right Forearm Pulse Ox 94 Oxygen Delivery Method Room Air Bi-pap Fraction of Inspired Oxygen (FIO2) 08/31/24 07:19 08/31/24 08:00 08/31/24 08:14 Temperature 97.5 F L Temperature Source Oral Pulse Rate 80 Respiratory Rate 18 Respiratory Effort Normal Non-Labored Respiratory Depth Normal Respiratory Pattern Normal Blood Pressure 186/46 H Blood Pressure Mean 92 Blood Pressure Source Monitor Blood Pressure Position Semi-Fowlers Blood Pressure Location Right Forearm Pulse Ox 96 98 Oxygen Delivery Method Room Air Room Air Room Air Fraction of Inspired Oxygen (FIO2) 08/31/24 09:53 08/31/24 11:19 Temperature 98.2 F Temperature Source Oral Pulse Rate 89 Respiratory Rate 16 Respiratory Effort Respiratory Depth Respiratory Pattern Blood Pressure 139/44 H Blood Pressure Mean 75 Blood Pressure Source Monitor Blood Pressure Position Semi-Fowlers Blood Pressure Location Right Forearm Pulse Ox 98 99 Oxygen Delivery Method Room Air Fraction of Inspired Oxygen (FIO2) Weight Weight: 73.391 kg Body Mass Index (BMI) 31.6 EEG Results Procedure Details EEG Procedure Details: JOYCE SOLOMON is a 89 year old F with a past medical history of , who presents for evaluation of Electroencephalogram on DATE at TIME Lab / Micro Data 08/31/24 05:35 08/31/24 05:35 Labs: Laboratory Results - last 24 hr 08/30/24 13:35: Vitamin B12 338, TSH 0.881 08/30/24 15:23: Troponin T Hi Sens 4Hr 38 H 08/30/24 16:40: Ammonia 14.8 08/31/24 05:35: WBC 6.9, RBC 3.45 L, Hgb 10.3 L, Hct 32.2 L, MCV 93.3, MCH 29.9, MCHC 32.0, RDW Std Deviation 44.6 H, RDW Coeff of Tiffani 13.1, Plt Count 338, MPV 9.6, Immature Gran % (Auto) 0.400, Neut % (Auto) 64.8, Lymph % (Auto) 22.0, [place] % (Auto) 9.4, Eos % (Auto) 2.5, Baso % (Auto) 0.9, Absolute Neuts (auto) 4.5, Absolute Lymphs (auto) 1.52, Nucleated RBC % 0, Sodium 135, Potassium 3.6, Chloride 94 L, Carbon Dioxide 27.1, Anion Gap 14, BUN 25 H, Creatinine 0.94, Estim Creat Clear Calc 37.00 L, Est GFR (MDRD) Non-Af 59 L, BUN/Creatinine Ratio 27.1 H, Glucose 102 H, Calcium 10.0, Total Bilirubin 0.40, AST 24, ALT 5, Alkaline Phosphatase 69, Total Protein 6.5, Albumin 3.6, Globulin 2.9, Albumin/Globulin Ratio 1.2, Triglycerides 66, Cholesterol 222 H, LDL Cholesterol, Calc 119, VLDL Cholesterol 13, HDL Cholesterol 90, Cholesterol/HDL Ratio 2.46 ABG Data ABG results: ABG 08/30/24 08/30/24 16:49 17:59 Specimen Type ASHER ART Sample Site Not entered R Radial pH 7.50 H Bicarbonate Actual 35.3 H Total CO2 37 Base Excess 12 H O2 Saturation 93 L O2 % 21.0 ABG pCO2 45.8 H ABG pO2 64 L Yves Test Positive VBG pH 7.73 H* VBG pO2 170 H VBG HCO3 30 H VBG Total CO2 31 VBG O2 Sat (Calc) 100 H VBG Base Excess 10 H POC Mix VBG pCO2 Pt Tmp 22.7 L O2 Delivery Device Not entered Room Air Vent Mode Not entered Crit Call To/Read Back Yes Blood Gas Notified Whom kiara Blood Gas Notified Time 16:51:18 Imaging Radiology Impression Echocardiogram 08/30/24 14:32 Interpretation Summary Normal LV size. Left ventricular systolic function is normal. The left ventricular ejection fraction is 55 %. Contrast injection was performed. Ordering Physician: Layla Fonseca Performed By: Devante Tripp RCS Hip/Pelvis X-Ray 08/30/24 14:43 IMPRESSION: Severe arthrosis. Reading Location: [facility] Knee X-Ray 08/30/24 22:30 IMPRESSION: Mild arthrosis with a small joint effusion. Reading Location: [facility] Brain MRI 08/31/24 09:00 IMPRESSION: 1. No acute intracranial abnormality. 2. Chronic findings as above. Reading Location: [facility] Active Medications Active Medications Active Medications: Current Medications Generic Name Dose Route Start Last Admin Trade Name Freq PRN Reason Stop Dose Admin Acetaminophen 650 mg 08/30/24 14:43 08/30/24 17:32 Acetaminophen 325 Mg Tablet PO 650 mg Q6H PRN PRN Administration Pain 1-10 Or Fever >100.7 Acetaminophen 1,000 mg 08/31/24 14:00 08/31/24 13:15 Acetaminophen 500 Mg Tablet PO 1,000 mg Q8 BATSHEVA Administration Albuterol Sulfate 2.5 mg 08/30/24 14:43 Albuterol 2.5 Mg/3 Ml Vial.Neb. INHALATION Q2H PRN PRN SOB &/OR WHEEZING Ascorbic Acid 500 mg 08/31/24 10:00 08/31/24 12:01 Ascorbic Acid 500 Mg Tablet PO 500 mg DAILY BATSHEVA Administration Aspirin 81 mg 08/31/24 08:00 08/31/24 08:15 Aspirin 81 Mg Tab.Chew PO 81 mg BREAKFAST BATSHEVA Administration Atorvastatin Calcium 40 mg 08/30/24 22:00 08/30/24 21:32 Atorvastatin Calcium 40 Mg Tablet PO 40 mg QHS BATSHEVA Administration Losartan Potassium 100 mg 09/01/24 10:00 Losartan Potassium 100 Mg Tablet PO DAILY [facility] Protocol Melatonin 3 mg 08/30/24 14:43 08/30/24 23:39 Melatonin 3 Mg Tablet PO 3 mg QHS PRN PRN Administration INSOMNIA Metoprolol Tartrate 100 mg 08/31/24 13:50 Metoprolol Tartrate 100 Mg Tablet PO BID [facility] Protocol Ondansetron HCl 4 mg 08/30/24 14:43 Ondansetron 4 Mg/2 Ml Vial IV Q8H PRN PRN NAUSEA/VOMITING Pramipexole Dihydrochloride 3 mg 08/30/24 22:00 08/30/24 21:31 Pramipexole Di-Hcl 1 Mg Tablet PO 3 mg QHS BATSHEVA Administration Senna/Docusate Sodium 2 tablet 08/30/24 14:43 Senna/Docusate Sodium 1 Tablet PO BID PRN PRN Constipation Sodium Chloride 10 - 40 ml 08/30/24 15:00 08/30/24 23:38 0.9% Saline Lock 10 Ml Syringe IV 20 ml UD PRN Administration SALINE FLUSH Tramadol HCl 50 mg 08/31/24 08:36 Tramadol 50 Mg Tablet PO Q6H PRN PRN Pain Score 1-10 Or Pre Pt/Ot NIHSS NIHSS Nursing Documentation NIHSS Nursing Documentation: NIHSS: Ischemic Stroke/TIA Start: 08/30/24 14:43 Text: For PCU Patients: NIH and Neuro Check every 4 Status: Complete hours, PRN and with change in RN caregiver. Freq: [id number] Protocol: Activity Type Activity Date Activity User E-sign Co-sign Detail Recorded Client Recorded Date Recorded By Document 08/31/24 11:19 desktop 08/31/24 11:47 08/31/24 11:19 NIH Stroke Scale [NIHSS] A score of 0 is normal or asymptomatic . Total possible score is 42. Inpatient: RN or Physician to activate a stroke alert for onset of new stroke symptoms or with NIHSS increase >/= 3 points. Following change in neurological status, NIHSS will be performed per physician order or more frequently PRN. -1a. Level of Consciousness 0 - Alert; keenly responsive -1b. LOC Questions 0 - Answers BOTH questions correctly -1c. LOC Commands 0 - Performs BOTH tasks correctly -2. Best Gaze 1 - Normal -3. Visual 0 - No visual loss -4. Facial Palsy 0 - Normal symmetrical movements -5a. Left Arm 0 - No drift; arm holds 90 ( or 45) degrees for full 10 seconds -5b. Right Arm 0 - No drift; arm holds 90 ( or 45) degrees for full 10 seconds -6a. Left Leg 1 - Drift; leg falls by the end of 5- seconds, but does not hit bed -6b. Right Leg 1 - Drift; leg falls by the end of 5- seconds, but does not hit bed -7. Limb Ataxia UN - Amputation or joint fusion, explain -'UN' explanation absent in arms; unable to test legs due to pain -8. Sensory 0 - Normal; no sensory loss -9. Best Language 1 - Mild-to- moderate aphasia; -10. Dysarthria 1 = Mild-to- moderate dysarthria; -11. Extinction and Inattention 0 - No abnormality -Total 4 Query Text:A score of 0 is normal or asymptomatic. Total possible score is 42 . ED: Notify Physician for NIHSS increase by > / = 3 points. Inpatient: RN or Physician to activate a stroke alert for NIHSS increase of > / = 3 points. Coma Scale [Assess] -Eye Opening Spontaneous -Motor Obeys Commands -Verbal Oriented [Total] -Coma Scale Total 15 NIHSS 1a. Level of Consciousness: 0 - Alert; keenly responsive 1b. LOC Questions: 0 - Answers BOTH questions correctly 1c. LOC Commands: 0 - Performs BOTH tasks correctly 2. Best Gaze: 1 - Normal 3. Visual: 0 - No visual loss 4. Facial Palsy: 0 - Normal symmetrical movements 5a. Left Arm: 0 - No drift; arm holds 90 (or 45) degrees for full 10 seconds 5b. Right Arm: 0 - No drift; arm holds 90 (or 45) degrees for full 10 seconds 6a. Left Le - Drift; leg falls by the end of 5-seconds, but does not hit bed 6b. Right Le - Drift; leg falls by the end of 5-seconds, but does not hit bed 7. Limb Ataxia: 0 - Absent 8. Sensory: 0 - Normal; no sensory loss 9. Best Language: 0 - No aphasia; normal 10. Dysarthria: 0 - Normal 11. Extinction and Inattention: 0 - No abnormality Total: 2
--- NOTE | 2024-08-31 15:14 | CASEMGMT ---
Met with patient to complete RO form. RO form explained to patient who voiced understanding and signed form. Original form placed in pt?s chart and copy provided to patient. Cassandra Church, Discharge Planning Asst
--- NOTE | 2024-08-31 15:23 | CASEMGMT ---
SW did not complete a PHQ 9 as patient did not have a Stroke or TIA. Tammy TOVAR
--- NOTE | 2024-08-31 15:43 | CASEMGMT ---
ALBERT NOLAN in to discuss needs at discharge, daughter at bedside. ALBERT NOLAN reviewed progress with therapy with patient and daughter, patient requiring minimal assistance x1 and ambulated 14ft. Patient is adamant that she is going home with resumption of her C with [facility]. RN AN and daughter discussed concerns for safety, patient states she wants to return home. ALBERT NOLAN encouraged patient and daughter to discuss possible assisted living in the future. Patient states she will have help coming to her home. Patient has aide serviced 2 times per week. ALBERT NOLAN educated patient that she may need more help than what her aides and daughter can provide. Patient still states she will go home. ALBERT NOLAN discussed adding services to [facility], patient and daughter agreeable. Patient and daughter had no further questions or concerns. ALBERT NOLAN updated DC director financial planning to update [facility]. ALBERT NOLAN updated hospitalist.
--- NOTE | 2024-08-31 15:50 | CASEMGMT ---
Discharge Planning Per [facility], pt is active receiving SN/PT/OT. RN CM updated. Cassandra Church DC Planning Asst.
--- NOTE | 2024-08-31 16:03 | DCINST_ITS ---
Discharge Instructions Diet Discharge Diet: Low fat / Low cholesterol and 2000 mg Sodium Diet DC O2, CPAP, BIPAP needs Home O2 Discharge instructions: No Dressing / Incision Discharge Activity: Return to Normal Activity Weight Bearing Status: Weight bearing as tolerated Dressing / Incision Call your doctor if you observe: Fever of 101 or Higher, Coldness, Increased Pain, Numbness or Tingling, Change in Color, Inability to urinate, Inability to have a bowel movement, Shortness of breath, Dizziness, Fainting spells, Swelling in the ankles, Chest pain, Prolonged hiccupping, Increased palpitations (irregular heartbeat) and Calf discomfort Follow Up Care When: IN 2 WEEKS Test Results: Test results from this visit will be discussed in further detail at your follow- up appointment, if applicable. Discharge Plan Admission Admit Date/Time: 08/30/24 14:01 Primary Reason for Your Visit: Stroke ruled out. Attending Provider: Charles Sullivan Primary Care Provider: Hussein Swenson Consulting Providers: Viral Choi; Jean Carlos Fritz; Mary Montalvo; Clementine Martel; Emmie Diaz; Mega Altamirano; Fay Yañez; Robert Castillo; Camilo Abernathy; John Ye; Rola Campos; Per Mckee; Giselle Wheatley; Abram Coronel; Lizeth Jules; Jay Blanco; Rayna Jordan; Boom Mariscal; Bonnie Blunt; José Miguel Bowman; Layla Fonseca Instructions Additional Instructions / Restrictions: Discussed with PCP to change pramipexole to some other anti restless leg syndrome medication. Try to avoid pramipexole and tramadol together Follow-up on neurologist in 1 month Discharge Orders/Prescriptions Prescriptions: New rosuvastatin 20 mg tablet 20 mg PO QHS 30 Days Qty: 30 2RF Continued Prolia 60 mg/mL syringe 60 mg SC [id number] Patient Comments: due February Rx Instructions: due in february aspirin 81 mg tablet,chewable 1 tab PO DAILY metoprolol tartrate 100 mg Tablet 100 mg PO BID 30 Days Qty: 60 0RF acetaminophen 500 mg Tablet 1,000 mg PO Q8 Qty: 0 0RF losartan 100 mg Tablet 100 mg PO DAILY Qty: 0 0RF magnesium oxide 420 mg tablet 420 mg PO DAILY ascorbic acid (vitamin C) [C-500] 500 mg tablet 500 mg PO DAILY cholecalciferol (vitamin D3) 25 mcg (1,000 unit) capsule 2,000 unit PO DAILY pramipexole 1 mg Tablet 3 mg PO QHS 30 Days Qty: 90 0RF Rx Instructions: Pramipexole and tramadol might make drowsiness worse therefore try to avoid together Changed tramadol 50 mg Tablet 50 mg PO BID 7 Days Qty: 28 0RF Held furosemide 40 mg Tablet 40 mg PO DAILY 30 Days Qty: 30 0RF Hold Instructions: Hold for 2 days Referrals / Follow Up: Hussein Swenson MD [Primary Care Provider] - Disposition Disposition (needs filled in before D/C Order can be placed): Home, Self Care
[2024-08-31] MEDS: Metoprolol Tartrate 100 MG Tablet PO (16:07)
--- NOTE | 2024-08-31 16:11 | DS.PCM_ITS ---
Providers Date of Admission: 08/30/24 Date of Discharge: 08/31/24 Primary Care Physician: Dr. Hussein Swenson MD Consultations 08/30/24 14:43 Consult: Tele-Neurology Routine Consulting Provider: [facility] Reason for Consult: Acute Ischemic Stroke/TIA EMERGENT Consult: No MD Notified: Yes Date Notified: 08/30/24 Time Notified: 14:29 Method of Notification: ED Physician Initiated Nursing Unit Staff Notify [facility] of Tele-Neurology Consult: Yes Reason For Visit: CVA RULE OUT Diagnosis Discharge Diagnosis (1) Aphasia: Status: Acute Code(s): R47.01 - Aphasia Plan 89-year-old female was admitted for prehospital stroke alert of increased left- sided facial droop and left-sided weakness, worse than her usual left-sided residual deficit. She also had difficulty in putting sentence and was hypotensive. # Mild slurred speech, on top of left-sided chronic residual weakness from previous stroke probably due to acute encephalopathy probably metabolic/toxic/polypharmacy or hypertension: Patient is being admitted in PCU. PT, OT, speech therapy/swallow evaluation and management, nursing NIH stroke scale, BP and glucose monitoring and control as per stroke protocol. TSH 0.881. Fasting profile shows TC 222, LDL 119. MRI brain was negative for acute intracranial abnormality. 2D echo with bubble contrast study and was negative for PFO. Normal left atrium. Patient was seen by teleneurologist, [facility]. As per his note patient was not able to get the words out and had double vision probably attributed to her hypertension. He reviewed the MRI images and was negative for new ischemia. Patient is past 24 hours and her antihypertensive medications resumed with holding parameters. Patient was evaluated by PT and recommended additional therapy required to SNF. In afternoon, patient refused for SNF. She is going home with home health. She had multiple other questions regarding her insurance coverage, medication, CPAP, getting dry mouth. Advised to follow-up with PCP. Patient can have [id number] saline nasal spray for her dry nose. ABG was done 7.50/pCO2 45.8/64 suggestive of mild metabolic alkalosis. Patient was also dehydrated and looks better in the morning. Patient also on tramadol and has kidney dysfunction therefore probability of toxic metabolic encephalopathy. U tox is ordered. Serum ammonia normal. B12 338, normal. #R leg pain - Patient reporting some right leg pain and reluctance to lift leg. In the morning she said she feels right leg weakness which is chronic. X-ray of right hip pelvis and knee x-ray reported severe arthrosis # History of paroxysmal atrial fibrillation -Presently in normal sinus rhythm -Coumadin stopped after intracranial hemorrhage 04/2024 # Restless leg syndrome -continue patient's home medication regimen Patient on pramipexole. Advised to avoid tramadol and pramipexole together. Tramadol dose frequency decreased to twice daily as needed. Follow with PCP to change pramipexole to other restless leg medication #Hypertension As mentioned above, antihypertensive medications resumed # Increased creatinine - Patient does have increase in all 3 cell lines and BUN and creatinine do seem to be at her baseline - Gentle IV fluids -Hold Lasix - Monitor intake and output #NEL - Appears in history that she at least at some point was on CPAP, checking VBG, if able to verify patient is on CPAP can continue here patient is compliant or will place patient on BiPAP if hypercapnic #DVT ppx: SCDs Discharge medication reconciliation done. Discharge follow-up instructions completed. Discharge process discussed with the patient and all questions were answered to patient's satisfaction. Follow with PCP in 1 to 2 weeks Total time spent, exact 35 minutes on discharge meds reconciliation, examination, coordination of care with nurses and ancillary staff, review of imaging and blood test and discussion with the patient on follow-up instructions. Medications at Discharge Home Medications denosumab 60 mg/mL subcutaneous syringe (Prolia) 60 mg subcut [id number] osteoporosis 10/08/19 aspirin 81 mg chewable tablet 1 tab PO DAILY Heart health 05/16/24 furosemide 40 mg tablet 40 mg PO DAILY edema 30 days #30 tabs 06/08/24 Held on 08/31/24. Instructions: Hold for 2 days acetaminophen 500 mg tablet 1,000 mg (2 x 500 mg) PO Q8 #0 tabs 07/20/24 losartan 100 mg tablet 100 mg PO DAILY #0 tabs 07/20/24 metoprolol tartrate 100 mg tablet 100 mg PO BID 30 days #60 tabs 07/20/24 ascorbic acid (vitamin C) 500 mg tablet (C-500) 500 mg PO DAILY supplement 08/30/24 cholecalciferol (vitamin D3) 25 mcg (1,000 unit) capsule 2,000 unit PO DAILY supplement 08/30/24 magnesium oxide 420 mg tablet 420 mg PO DAILY 08/30/24 pramipexole 1 mg tablet 3 mg (3 x 1 mg) PO QHS 30 days #90 tabs 08/31/24 rosuvastatin 20 mg tablet 20 mg PO QHS 1 month #30 tabs 08/31/24 tramadol 50 mg tablet 50 mg PO BID 7 days #28 tabs 08/31/24 Physical Exam Narrative Please see progress note Weight / BMI Weight Weight: 161 lb 12.791 oz Body Mass Index (BMI) 31.6 ABG / Lab / Microbiology Data 08/31/24 05:35 08/31/24 05:35 Laboratory: Laboratory Results - last 24 hr 08/30/24 13:35: Vitamin B12 338, TSH 0.881 08/30/24 16:40: Ammonia 14.8 08/31/24 05:35: WBC 6.9, RBC 3.45 L, Hgb 10.3 L, Hct 32.2 L, MCV 93.3, MCH 29.9, MCHC 32.0, RDW Std Deviation 44.6 H, RDW Coeff of Tiffani 13.1, Plt Count 338, MPV 9.6, Immature Gran % (Auto) 0.400, Neut % (Auto) 64.8, Lymph % (Auto) 22.0, [place] % (Auto) 9.4, Eos % (Auto) 2.5, Baso % (Auto) 0.9, Absolute Neuts (auto) 4.5, Absolute Lymphs (auto) 1.52, Nucleated RBC % 0, Sodium 135, Potassium 3.6, C hloride 94 L, Carbon Dioxide 27.1, Anion Gap 14, BUN 25 H, Creatinine 0.94, E stim Creat Clear Calc 37.00 L, Est GFR (MDRD) Non-Af 59 L, BUN/Creatinine Ratio 27.1 H, Glucose 102 H, Calcium 10.0, Total Bilirubin 0.40, AST 24, ALT 5, Alkaline Phosphatase 69, Total Protein 6.5, Albumin 3.6, Globulin 2.9, Albumin/Globulin Ratio 1.2, Triglycerides 66, Cholesterol 222 H, LDL Cholesterol, Calc 119, VLDL Cholesterol 13, HDL Cholesterol 90, Cholesterol/HDL Ratio 2.46 ABG: ABG 08/30/24 08/30/24 16:49 17:59 Specimen Type ASHER ART Sample Site Not entered R Radial pH 7.50 H Bicarbonate Actual 35.3 H Total CO2 37 Base Excess 12 H O2 Saturation 93 L O2 % 21.0 ABG pCO2 45.8 H ABG pO2 64 L Yves Test Positive VBG pH 7.73 H* VBG pO2 170 H VBG HCO3 30 H VBG Total CO2 31 VBG O2 Sat (Calc) 100 H VBG Base Excess 10 H POC Mix VBG pCO2 Pt Tmp 22.7 L O2 Delivery Device Not entered Room Air Vent Mode Not entered Crit Call To/Read Back Yes Blood Gas Notified Whom fonseca Blood Gas Notified Time 16:51:18 Radiography Diagnostic Testing: Radiology Impression Echocardiogram 08/30/24 14:32 Interpretation Summary Normal LV size. Left ventricular systolic function is normal. The left ventricular ejection fraction is 55 %. Contrast injection was performed. Ordering Physician: Layla Fonseca Performed By: Devante Tripp RCS Hip/Pelvis X-Ray 08/30/24 14:43 IMPRESSION: Severe arthrosis. Reading Location: [facility] Knee X-Ray 08/30/24 22:30 IMPRESSION: Mild arthrosis with a small joint effusion. Reading Location: [facility] Brain MRI 08/31/24 09:00 IMPRESSION: 1. No acute intracranial abnormality. 2. Chronic findings as above. Reading Location: [facility] D/Jing Instructions Discharge Diet: Low fat / Low cholesterol and 2000 mg Sodium Diet Weight Bearing Status: Weight bearing as tolerated Call your doctor if you observe: Fever of 101 or Higher, Coldness, Increased Pain, Numbness or Tingling, Change in Color, Inability to urinate, Inability to have a bowel movement, Shortness of breath, Dizziness, Fainting spells, Swelling in the ankles, Chest pain, Prolonged hiccupping, Increased palpitations (irregular heartbeat) and Calf discomfort DC O2, CPAP, BIPAP Needs Home O2 Discharge instructions: No When: IN 2 WEEKS Meaningful Use Info Meaningful Use Meaningful Use Diagnoses (Choose all that apply): None applicable Ischemic Stroke Statin Dosing Therapy Reference: STATIN DOSE THERAPY REFERENCE: * Patients > 75 years receive moderate or high dose statin therapy. * Patients 75 years or YOUNGER should receive HIGH intensity statin dose unless contraindicated. You will be required to document reason for non-treatment if statin daily dose does not meet guidelines. HIGH DOSE STATIN THERAPY DAILY Atorvastatin > than or = to 40 mg Rosuvastatin > than or = to 20 mg Amlodipine + Atorvastatin > than or = to 2.5/40 mg Ezetimibe + Simvastatin 10/80 mg Simvastatin 80mg Discharge Plan Admission Admit Date/Time: 08/30/24 14:01 Primary Reason for Your Visit: Stroke ruled out. Attending Provider: Charles Sullivan Primary Care Provider: Hussein Swenson Consulting Providers: Viral Choi; Jean Carlos Fritz; Mary Montalvo; Clementine Martel; Emmie Diaz; Mega Altamirano; Fay Yañez; Robert Castillo; Camilo Abernathy; John Ye; Rola Campos; Per Mckee; Giselle Wheatley; Abram Coronel; Lizeth Jules; Jay Blanco; Rayna Jordan; Boom Mariscal; Bonnie Blunt; José Miguel Bowman; Layla Fonseca Instructions Additional Instructions / Restrictions: Discussed with PCP to change pramipexole to some other anti restless leg syndrome medication. Try to avoid pramipexole and tramadol together Follow-up on neurologist in 1 month Discharge Orders/Prescriptions Prescriptions: New rosuvastatin 20 mg tablet 20 mg PO QHS 30 Days Qty: 30 2RF Continued Prolia 60 mg/mL syringe 60 mg SC [id number] Patient Comments: due February Rx Instructions: due in february aspirin 81 mg tablet,chewable 1 tab PO DAILY metoprolol tartrate 100 mg Tablet 100 mg PO BID 30 Days Qty: 60 0RF acetaminophen 500 mg Tablet 1,000 mg PO Q8 Qty: 0 0RF losartan 100 mg Tablet 100 mg PO DAILY Qty: 0 0RF magnesium oxide 420 mg tablet 420 mg PO DAILY ascorbic acid (vitamin C) [C-500] 500 mg tablet 500 mg PO DAILY cholecalciferol (vitamin D3) 25 mcg (1,000 unit) capsule 2,000 unit PO DAILY pramipexole 1 mg Tablet 3 mg PO QHS 30 Days Qty: 90 0RF Rx Instructions: Pramipexole and tramadol might make drowsiness worse therefore try to avoid together Changed tramadol 50 mg Tablet 50 mg PO BID 7 Days Qty: 28 0RF Held furosemide 40 mg Tablet 40 mg PO DAILY 30 Days Qty: 30 0RF Hold Instructions: Hold for 2 days Referrals / Follow Up: Hussein Swenson MD [Primary Care Provider] - Disposition Disposition (needs filled in before D/C Order can be placed): Home, Self Care Charges/Coding Visit Charges Inpatient E&M: 42652 Disch Hosp >30min
--- NOTE | 2024-08-31 16:41 | PHA.DC_ITS ---
Pharmacy [facility] has performed discharge medication reconciliation and counseling for this patient. The patient's discharge medication list was reviewed for discrepancies and discrepancies were resolved. The patient was counseled on the following discharge medications and changes in medications for homegoing were reviewed. The Reason for Use, instructions for use, and potential side effects were reviewed for all new medications. The patient's questions regarding all of their medications were answered. 1. Rosuvastatin 20 mg PO daily The patient was able to verbally demonstrate an understanding of their discharge medications. Medications at Discharge Home Medications denosumab 60 mg/mL subcutaneous syringe (Prolia) 60 mg subcut [id number] osteoporosis 10/08/19 aspirin 81 mg chewable tablet 1 tab PO DAILY Heart health 05/16/24 furosemide 40 mg tablet 40 mg PO DAILY edema 30 days #30 tabs 06/08/24 Held on 08/31/24. Instructions: Hold for 2 days acetaminophen 500 mg tablet 1,000 mg (2 x 500 mg) PO Q8 #0 tabs 07/20/24 losartan 100 mg tablet 100 mg PO DAILY #0 tabs 07/20/24 metoprolol tartrate 100 mg tablet 100 mg PO BID 30 days #60 tabs 07/20/24 ascorbic acid (vitamin C) 500 mg tablet (C-500) 500 mg PO DAILY supplement 08/30/24 cholecalciferol (vitamin D3) 25 mcg (1,000 unit) capsule 2,000 unit PO DAILY supplement 08/30/24 magnesium oxide 420 mg tablet 420 mg PO DAILY 08/30/24 pramipexole 1 mg tablet 3 mg (3 x 1 mg) PO QHS 30 days #90 tabs 08/31/24 rosuvastatin 20 mg tablet 20 mg PO QHS 1 month #30 tabs 08/31/24 tramadol 50 mg tablet 50 mg PO BID 7 days #28 tabs 08/31/24
== END 2024-08-31 17:45 | disposition home or self-care (01) ==
LOC: ED 12:29 → PCU 14:05
PROVIDERS: Admitting Provider Internal Medicine; Emergency Provider Emergency Medicine; PCP Family Medicine; Visit Provider Internal Medicine
DX: R47.81 Slurred speech (principal); I69.254 Hemiplegia and hemiparesis following other nontraumatic intracranial hemorrhage affecting left non-dominant side; I27.21 Secondary pulmonary arterial hypertension; J44.9 Chronic obstructive pulmonary disease, unspecified; I48.0 Paroxysmal atrial fibrillation; R47.01 Aphasia; I95.9 Hypotension, unspecified; R29.810 Facial weakness; I69.228 Other speech and language deficits following other nontraumatic intracranial hemorrhage; E86.0 Dehydration; M79.604 Pain in right leg; I10 Essential (primary) hypertension; E78.5 Hyperlipidemia, unspecified; G25.81 Restless legs syndrome; G47.33 Obstructive sleep apnea (adult) (pediatric); Z79.891 Long term (current) use of opiate analgesic; Z79.82 Long term (current) use of aspirin; Z79.899 Other long term (current) drug therapy; Z91.81 History of falling
CPT/HCPCS: 36415; 36600; 70450; 70496; 70498; 70551; 71045; 73502; 73560; 80048; 80053; 80061; 81001; 82140; 82607; 82803; 84443; 84484; 85025; 85610; 85730; 92610; 93005; 93306; 94762; 97163; 97166; 97803; 99221; 99285; Q9957; Q9967; A4216; C8929; G0378

== ENCOUNTER 2024-08-31 20:47 | Observation (INO) | payer MEDICARE, BC, SELFPAY ==
[2024-08-31] VITALS (11 sets, daily range): BP systolic 83–192; BP diastolic 51–111; PULSE 73–78; RESP 16–23; TEMP 37.2–37.3; O2SAT 92–98; BMI 32.3
--- NOTE | 2024-08-31 22:15 | EX.ED.DYSGE1 ---
HPI History of Present Illness Chief Complaint: Confusion Informant: patient and family Narrative Narrative: Patient is a 89-year-old female with past medical history of hypertension paroxysmal atrial fibrillation currently not on anticoagulation previous hemorrhagic stroke and recent admission secondary to dysphagia. In the hospital she underwent an MRI which showed no acute findings and had basic blood work was also revealed no obvious changes. They discussed placement in rehab but the patient ultimately decided against this and was awake alert and oriented and competent to make the decision so she returned home. The patient lives at home alone. Family states that they were checking on the patient earlier today and that she had altered mental status where her medications were all strewn about and she was not making any sense with her words and was altered. Secondary to the return of confusion/altered mental status she was brought back to the hospital for evaluation. [facility] Medical History History of hemorrhagic cerebrovascular accident (CVA) with residual deficit Daytime somnolence Elevated PTHrP level Venous insufficiency of both lower extremities Cerebral amyloid angiopathy Hypothyroidism Hyperlipidemia Essential (primary) hypertension Hypertension Lumbar compression fracture Closed compression fracture of L2 vertebra COPD (chronic obstructive pulmonary disease) Wrist fracture, right Shoulder fracture, left Iron deficiency anemia Osteoporosis Vitamin D deficiency Hiatal hernia Restless legs History of stress test HTN (hypertension) Scarlet fever Sleep apnea Pulmonary hypertension Secondary pulmonary arterial hypertension Paroxysmal atrial fibrillation Incomplete right bundle branch block Obstructive sleep apnea Obesity Essential (primary) hypertension Multiple fractures of ribs, left side, initial encounter for closed fracture Hypertensive emergency Pneumonia Limb weakness Difficulty balancing Thyroid disease Migraines Fatigue Arthritis Community acquired pneumonia Medical History no medical history Home Medications ?Medication ?Instructions ?Recorded ?Last Taken ?Type denosumab 60 mg/mL subcutaneous 60 mg subcut [id number] osteoporosis 10/08/19 08/24/21 History syringe (Prolia) aspirin 81 mg chewable tablet 1 tab PO DAILY Heart health 05/16/24 05/30/24 History furosemide 40 mg tablet 40 mg PO DAILY edema 30 days #30 06/08/24 Unknown Rx Held on 08/31/24. tabs Instructions: Hold for 2 days acetaminophen 500 mg tablet 1,000 mg (2 x 500 mg) PO Q8 #0 tabs 07/20/24 Unknown Rx losartan 100 mg tablet 100 mg PO DAILY #0 tabs 07/20/24 Unknown Rx metoprolol tartrate 100 mg tablet 100 mg PO BID 30 days #60 tabs 07/20/24 Unknown Rx ascorbic acid (vitamin C) 500 mg 500 mg PO DAILY supplement 08/30/24 Unknown History tablet (C-500) cholecalciferol (vitamin D3) 25 2,000 unit PO DAILY supplement 08/30/24 Unknown History mcg (1,000 unit) capsule magnesium oxide 420 mg tablet 420 mg PO DAILY 08/30/24 Unknown History pramipexole 1 mg tablet 3 mg (3 x 1 mg) PO QHS 30 days #90 08/31/24 Unknown Rx tabs rosuvastatin 20 mg tablet 20 mg PO QHS 1 month #30 tabs 08/31/24 Unknown Rx tramadol 50 mg tablet 50 mg PO BID 7 days #28 tabs 08/31/24 Unknown Rx Allergy/AdvReac Type Severity Reaction Status Date / Time cefazolin (From Ancef) Allergy Severe Swelling Verified 08/31/24 20:54 silk Allergy Intermediate itching Verified 08/31/24 20:54 duloxetine (From Cymbalta) Allergy Unknown Hives Verified 08/31/24 20:54 shellfish derived Allergy Unknown Other Verified 08/31/24 20:54 beet (Beet) Allergy Hives Verified 08/31/24 20:54 cantaloupe Allergy Food Verified 08/31/24 20:54 Allergy eggplant Allergy Hives Verified 08/31/24 20:54 Food Allergies: Uncoded Allergy Itching Verified 08/31/24 20:54 levofloxacin (From Levaquin) Allergy Unknown Verified 08/31/24 20:54 mold Allergy NEEDS Verified 08/31/24 20:54 FOLLOW-UP Penicillins Allergy Unknown Verified 08/31/24 20:54 tomato Allergy Food Verified 08/31/24 20:54 Allergy wheat Allergy Hives Verified 08/31/24 20:54 gabapentin (From Neurontin) AdvReac Other Verified 08/31/24 20:54 meloxicam (From Mobic) AdvReac Other Verified 08/31/24 20:54 oxycodone (From OxyIR) AdvReac Nausea Verified 08/31/24 20:54 risedronate sodium (From AdvReac Other Verified 08/31/24 20:54 Actonel) Family History Other Cancer Diabetes Heart disease Family History no significant family his Surgical History H/O radiofrequency ablation (RFA) of nerve of lumbar spine History of kyphoplasty Hx of tonsillectomy H/O partial thyroidectomy History of appendectomy History of cholecystectomy Hx of bilateral cataract extraction History of thyroid surgery Hx of appendectomy History of tonsillectomy Hx of cholecystectomy History of thymectomy History of parathyroidectomy Surgical History no surgical history Social History adopted: No household members: none housing: [facility] number of children: 2 current occupational status: retired current occupational exposures/hazards: No pets and animals: No leisure activities: reading and other history of recent travel: Yes ([employer] in [place]) Smoking Status: Never smoker alcohol intake: never substance use type: does not use caffeine: No ROS ROS ED Constitutional Constitutional ED: Denies chills or fever(s) Eyes Eyes: Denies change in vision ENT ENT ED: Denies sore throat Cardiovascular Cardiovascular: Denies chest pain, palpitations or racing heartbeat Respiratory/Chest Respiratory/Chest: Denies cough or dyspnea Gastrointestinal Gastrointestinal: Denies abdominal pain, diarrhea, nausea or vomiting Genitourinary Genitourinary ED: Denies dysuria Musculoskeletal Musculoskeletal: Denies myalgias Integumentary Denies rash Neurologic Neurologic: Denies headache(s) Hematologic/Lymphatic Hematologic/Lymphatic: Denies easy bleeding or easy bruising EXAM Physical Exam Const Vital Signs: 08/31/24 20:54 08/31/24 20:57 08/31/24 21:53 Temperature 99.1 F 99.1 F Temperature Source Oral Oral Pulse Rate 76 76 75 Respiratory Rate 18 18 16 Blood Pressure 186/68 H 186/68 H 192/51 H Blood Pressure Mean 107 107 98 Pulse Ox 95 95 98 Oxygen Delivery Method Room Air Room Air Room Air 08/31/24 22:03 08/31/24 22:15 08/31/24 22:15 Temperature 99 F Temperature Source Pulse Rate 77 75 75 Respiratory Rate 18 23 H 18 Blood Pressure 161/111 H 157/71 H Blood Pressure Mean 127 99 Pulse Ox 95 93 98 Oxygen Delivery Method Room Air 08/31/24 22:30 08/31/24 22:45 08/31/24 23:00 Temperature Temperature Source Pulse Rate 78 77 75 Respiratory Rate 22 H 19 H 18 Blood Pressure 170/76 H 191/73 H 157/71 H Blood Pressure Mean 98 106 99 Pulse Ox 98 Oxygen Delivery Method Room Air 08/31/24 23:00 08/31/24 23:15 08/31/24 23:30 Temperature Temperature Source Pulse Rate 78 73 76 Respiratory Rate 17 19 H 16 Blood Pressure 122/107 H 157/71 H 83/64 L Blood Pressure Mean 115 95 72 Pulse Ox 92 94 Oxygen Delivery Method 08/31/24 23:45 09/01/24 00:00 09/01/24 00:15 Temperature Temperature Source Pulse Rate 78 75 76 Respiratory Rate 20 H 21 H 20 H Blood Pressure 194/73 H 210/79 H Blood Pressure Mean 109 117 Pulse Ox Oxygen Delivery Method 09/01/24 00:21 09/01/24 00:30 09/01/24 00:37 Temperature Temperature Source Pulse Rate 75 72 75 Respiratory Rate 23 H 22 H 16 Blood Pressure 217/65 H 217/65 H Blood Pressure Mean 103 115 Pulse Ox 97 92 98 Oxygen Delivery Method Room Air Room Air 09/01/24 00:45 09/01/24 00:52 09/01/24 01:00 Temperature Temperature Source Pulse Rate 75 84 81 Respiratory Rate 20 H 22 H 20 H Blood Pressure 205/64 H 175/49 H Blood Pressure Mean 100 86 Pulse Ox 18 Oxygen Delivery Method Room Air 09/01/24 01:15 09/01/24 01:30 09/01/24 01:45 Temperature Temperature Source Pulse Rate 87 90 82 Respiratory Rate 17 17 17 Blood Pressure Blood Pressure Mean Pulse Ox Oxygen Delivery Method 09/01/24 01:46 Temperature Temperature Source Pulse Rate 85 Respiratory Rate 21 H Blood Pressure 170/61 H Blood Pressure Mean 90 Pulse Ox 96 Oxygen Delivery Method Room Air Positive well nourished and well developed General Appearance ED: well developed; Negative for pallor HEENT Reports dry mucous membranes HEENT Narrative: Normocephalic atraumatic No tongue or lip swelling no oral lesions no airway edema or compromise Mucous membranes are dry and tacky No secondary findings in the posterior pharynx to suggest infection Mouth ED: Yes dry mucous membranes Mouth: dry mucous membranes Eyes PERRL and EOMs intact bilaterally General Eye ED: Negative for scleral icterus Neck supple Neck Narrative: No nuchal rigidity or meningeal signs noted Resp normal respiratory effort Resp Narrative: Breath sounds are diminished throughout with faint rhonchi in the bilateral bases but no signs of respiratory distress Cardio regular rate and regular rhythm Rate: other Other Details: Heart is regular rate and rhythm Radial and carotid pulses are equal and symmetric GI normal to inspection, nondistended, normoactive bowel sounds, non-tender, non-distended and no masses GI Narrative: No voluntary guarding or rigidity or pulsatile mass Auscultation: normoactive bowel sounds Palpation: soft Extremity normal to inspection Extremity Narrative: Pelvis is stable and there is no shortening or external rotation of either lower extremity Patient has +1-2 pitting edema to the bilateral lower extremities that is equal and symmetric and chronic per patient and family Negative Homans' sign bilaterally Neuro oriented x3, CN's II-XII intact bilaterally and no sensory deficits noted Neuro Narrative: GCS of 15; patient is awake and alert to person place and time Cranial nerves II through XII are grossly intact there are no focal neurologic deficits Patient has chronic right sided lean from previous stroke; there is right leg weakness as well which is chronic in nature from previous stroke. No new or acute findings No alteration in mental status at this time Patient has 2 out of 3 word recall Sensorium / Orientation: alert Psych mental status grossly normal Skin no rashes or lesions noted and No skin turgor normal Skin Narrative: Skin turgor is increased otherwise no secondary findings of infection General Skin Exam: Negative for jaundice or pallor MDM MDM MDM Narrative Medical decision making narrative: Patient arrived to the ER hypertensive but had not taken her nighttime medications yet and otherwise vitals are stable. Family reported bouts of confusion at home but in the ER she is awake and alert to person place and time. She had a brain MRI earlier today and therefore I felt no need for repeat imaging studies. In order to assess for potential UTI hepatic encephalopathy or electrolyte abnormality or acute kidney injury as the cause of her confusion I did elect to perform repeat laboratory studies. Labs revealed no clinically significant findings. Patient had no bouts of confusion while in the ER. However she does have significant debility from previous stroke with right sided lean and right leg weakness. She has difficulty ambulating secondary to this. At this time as she lives alone and has difficulty ambulating and family is reporting intermittent confusion I do feel that her safest option is for admission so that PT OT can evaluate the patient and that she can be placed in assisted living or rehab or care home. Family states that the patient refused this earlier today but after they have been talking with her throughout the day she is now agreeable to placement. Therefore the hospitalist was contacted and he agrees accept the patient for further care and potential placement in a rehab/nursing facility. History & Record Review Discussion w/independent historian: Patient and Family Lab Data Attestation: I reviewed the patient's lab results. Labs: Laboratory Results - last 24 hr 08/31/24 08/31/24 22:47 23:05 WBC 9.9 RBC 3.52 L Hgb 10.4 L Hct 32.6 L MCV 92.6 MCH 29.5 MCHC 31.9 L RDW Std Deviation 44.3 H RDW Coeff of Tiffani 13.1 Plt Count 320 MPV 9.7 Immature Gran % (Auto) 0.600 Neut % (Auto) 75.7 H Lymph % (Auto) 11.7 L [place] % (Auto) 7.9 Eos % (Auto) 3.4 Baso % (Auto) 0.7 Absolute Neuts (auto) 7.5 Absolute Lymphs (auto) 1.15 Nucleated RBC % 0 Sodium 140 Potassium 4.0 Chloride 97 L Carbon Dioxide 31.0 Anion Gap 11 BUN 33 H Creatinine 1.06 Estim Creat Clear Calc 33.21 L Est GFR (MDRD) Non-Af 51 L BUN/Creatinine Ratio 31.1 H Glucose 104 H Calcium 9.9 Total Bilirubin 0.30 Direct Bilirubin 0.13 AST 26 ALT 9 Alkaline Phosphatase 69 Ammonia 19.3 Total Protein 6.6 Albumin 3.7 Globulin 3.0 Urine Color Yellow Urine Clarity Clear Urine pH 7.0 Ur Specific [place] 1.010 Urine Protein 30 H Urine Glucose (UA) Normal Urine Ketones Negative Urine Occult Blood Negative Urine Nitrite Negative Urine Bilirubin Negative Urine Urobilinogen Normal Ur Leukocyte Esterase Negative Urine RBC 0 SEEN Urine WBC 0 SEEN Ur Squamous Epith Cells 0 SEEN Urine Bacteria 0 SEEN Urine Mucus 0 SEEN Management Discussion w/another healthcare provider: Hospitalist Discharge Plan Dx/Rx/DC Orders Clinical Impression: Essential (primary) hypertension, Paroxysmal atrial fibrillation, Debility, Altered level of consciousness Disposition Disposition: Acute Care Hospital [facility] Discharge Date/Time: 09/01/24 02:53
[2024-08-31 22:56] LABS: Absolute Lymphocyte Count 1.15 X10^3/uL (0.83-4.51); Absolute Neutrophil Count 7.5 X10^3/uL (2.0-7.7); Basophil# 0.07 X10^3/uL; Basophil% 0.7 % (0-1); Eosinophil# 0.34 X10^3/uL; Eosinophils% 3.4 % (0-5); Hematocrit 32.6 % (37-47); Hemoglobin 10.4 g/dL (12.0-15.0); Lymphocyte # 1.15 X10^3/ul (0.83-4.51); Lymphocyte % 11.7 % (19-41); Mean Corp Hgb Conc 31.9 g/dL (32-36); Mean Corpuscular Hgb 29.5 pg (27.0-32.0); Mean Corpuscular Volume 92.6 fL (81-99); Mean Platelet Vol. 9.7 fl (6.2-12.0); Monocyte# 0.78 X10^3/uL; Monocyte% 7.9 % (0-10); NRBC Flagged by Analyzer 0 % (0-5); Neutrophil # 7.47 X10^3/uL (2.7-7.7); Neutrophil % 75.7 % (47-70); Platelet Count 320 K/mm3 (150-450); RBC Distribution Width CV 13.1 % (11.6-14.6); RBC Distribution Width SD 44.3 fl (35.1-43.9); Red Blood Count 3.52 M/mm3 (4.2-5.4); White Blood Count 9.9 K/mm3 (4.4-11.0)
[2024-08-31 23:11] LABS: Bacteria 0 SEEN /hpf (None Seen); Mucous, Urine 0 SEEN /hpf (<or=2+); Red Blood Cells-Urine 0 SEEN /hpf (0-5); Squamous Epithelial Cells - UA 0 SEEN /hpf (5-10); White Blood Cells 0 SEEN /hpf (0-5)
[2024-08-31 23:22] LABS: Ammonia 19.3 umol/L (11-51)
[2024-08-31 23:24] LABS: AST(SGOT) 26 U/L (<=31); Alanine Aminotransfer ALT/SGPT 9 U/L (<=34); Albumin, Serum 3.7 g/dL (3.4-4.8); Alkaline Phosphatase 69 U/L (35-104); Anion Gap 11 (5-15); BUN 33 mg/dL (4-19); BUN/Creat Ratio 31.1 RATIO (10-20); Bilirubin, Direct 0.13 mg/dL (0.00-0.30); Calcium,Total 9.9 mg/dL (7.6-11.0); Chloride 97 mmol/L (98-108); Creatinine, Serum 1.06 mg/dL (0.70-1.20); EST Glomerular Filtration Rate 51 (>60); Estimated Creatinine Clearance 33.21 ml/min (50-250); Glucose 104 mg/dL (70-99); Protein, Total 6.6 g/dL (5.9-8.4); Sodium Level 140 mmol/L (133-145)
[2024-08-31 23:24] LABS: Glucose, Dipstick Normal (Normal); Ketone-Dipstick Negative (Negative); Leukocyte Esterase-Dipstick Negative /ul (Negative); Nitrite-Dipstick Negative (Negative); Occult Blood-Urine Negative /ul (Negative); Protein-Dipstick 30 mg/dl (Negative); Urine Bilirubin Dipstick Negative (Negative); Urine Urobilinogen Normal (Normal)
[2024-08-31 23:44] LABS: Color, Urine Yellow (Yellow); Urine Clarity Clear (Clear)
[2024-09-01] VITALS (20 sets, daily range): BP systolic 148–217; BP diastolic 47–96; PULSE 65–90; RESP 16–23; TEMP 36.1–36.8; O2SAT 18–98; BMI 28.0
[2024-09-01] MEDS: Ketorolac 15 MG/ML Vial IV (00:12)
--- NOTE | 2024-09-01 01:30 | PCM.HP.STD ---
[facility] - General General Date of Admission: 09/01/24 Date of Service: 09/01/24 Chief Complaint: Worsening Confusion. HPI Narrative JOYCE SOLOMON, is a 89 F with a past medical history of essential hypertension; on losartan and metoprolol tartrate twice daily, hyperlipidemia; on rosuvastatin, history of partial thyroidectomy; with subsequent hypothyroidism; currently not on treatment, history of parathyroidectomy, history of thymectomy, remote history of scarlet fever, obesity; with BMI of 32.3 this admission, NLE; on CPAP, history of COPD, history of paroxysmal atrial fibrillation; currently not on anticoagulation but taking baby aspirin daily, chronic venous insufficiency, history of migraine headaches, REYES, history of vitamin D deficiency, osteoporosis; on denosumab, osteoarthritis; with history of closed L2 compression fracture; s/p kyphoplasty and RFA of nerve of lumbar spine, history of secondary pulmonary hypertension, history of hypertensive emergency, history of cerebral amyloid angiopathy, 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 The patient's family accompanied her to the ER and they informed the ER physician that the patient lives at home alone and when they went to check on her earlier today she was noted to be very confused with medications strewn about and was not making any sense so they decided to bring her back in so that she can be admitted to a retirement facility. There was no report of associated fever, chills, nausea, vomiting, diarrhea, constipation, abdominal pain, chest pain, shortness of breath, runny nose, sore throat, headache or rash. In the ER she was noted to have an elevated blood pressure of 186/68 mmHg present on admission that spiked up to as high as 217/65 mmHg consistent with suspected Hypertensive Urgency. She was then admitted to the general medical floor with telemetric monitoring under observation status for a stay that is expected to be less than 2 midnights. [facility] Medical History (Updated 09/01/24 @ 04:[address] Juan José Suarez, DO) History of hemorrhagic cerebrovascular accident (CVA) with residual deficit Daytime somnolence Elevated PTHrP level Venous insufficiency of both lower extremities Cerebral amyloid angiopathy Hypothyroidism Hyperlipidemia Essential (primary) hypertension Hypertension Lumbar compression fracture Closed compression fracture of L2 vertebra COPD (chronic obstructive pulmonary disease) Wrist fracture, right Shoulder fracture, left Iron deficiency anemia Osteoporosis Vitamin D deficiency Hiatal hernia Restless legs History of stress test HTN (hypertension) Scarlet fever Sleep apnea Pulmonary hypertension Secondary pulmonary arterial hypertension Paroxysmal atrial fibrillation Incomplete right bundle branch block Obstructive sleep apnea Obesity Essential (primary) hypertension Multiple fractures of ribs, left side, initial encounter for closed fracture Hypertensive emergency Pneumonia Limb weakness Difficulty balancing Thyroid disease Migraines Fatigue Arthritis Community acquired pneumonia Medical History no medical history Home Medications ?Medication ?Instructions ?Recorded ?Last Taken ?Type denosumab 60 mg/mL subcutaneous 60 mg subcut [id number] osteoporosis 10/08/19 08/24/21 History syringe (Prolia) aspirin 81 mg chewable tablet 1 tab PO DAILY Heart health 05/16/24 05/30/24 History furosemide 40 mg tablet 40 mg PO DAILY edema 30 days #30 06/08/24 Unknown Rx Held on 08/31/24. tabs Instructions: Hold for 2 days acetaminophen 500 mg tablet 1,000 mg (2 x 500 mg) PO Q8 #0 tabs 07/20/24 Unknown Rx losartan 100 mg tablet 100 mg PO DAILY #0 tabs 07/20/24 Unknown Rx metoprolol tartrate 100 mg tablet 100 mg PO BID 30 days #60 tabs 07/20/24 Unknown Rx ascorbic acid (vitamin C) 500 mg 500 mg PO DAILY supplement 08/30/24 Unknown History tablet (C-500) cholecalciferol (vitamin D3) 25 2,000 unit PO DAILY supplement 08/30/24 Unknown History mcg (1,000 unit) capsule magnesium oxide 420 mg tablet 420 mg PO DAILY 08/30/24 Unknown History pramipexole 1 mg tablet 3 mg (3 x 1 mg) PO QHS 30 days #90 08/31/24 Unknown Rx tabs rosuvastatin 20 mg tablet 20 mg PO QHS 1 month #30 tabs 08/31/24 Unknown Rx tramadol 50 mg tablet 50 mg PO BID 7 days #28 tabs 08/31/24 Unknown Rx Allergy/AdvReac Type Severity Reaction Status Date / Time cefazolin (From Ancef) Allergy Severe Swelling Verified 08/31/24 20:54 silk Allergy Intermediate itching Verified 08/31/24 20:54 duloxetine (From Cymbalta) Allergy Unknown Hives Verified 08/31/24 20:54 shellfish derived Allergy Unknown Other Verified 08/31/24 20:54 beet (Beet) Allergy Hives Verified 08/31/24 20:54 cantaloupe Allergy Food Verified 08/31/24 20:54 Allergy eggplant Allergy Hives Verified 08/31/24 20:54 Food Allergies: Uncoded Allergy Itching Verified 08/31/24 20:54 levofloxacin (From Levaquin) Allergy Unknown Verified 08/31/24 20:54 mold Allergy NEEDS Verified 08/31/24 20:54 FOLLOW-UP Penicillins Allergy Unknown Verified 08/31/24 20:54 tomato Allergy Food Verified 08/31/24 20:54 Allergy wheat Allergy Hives Verified 08/31/24 20:54 gabapentin (From Neurontin) AdvReac Other Verified 08/31/24 20:54 meloxicam (From Mobic) AdvReac Other Verified 08/31/24 20:54 oxycodone (From OxyIR) AdvReac Nausea Verified 08/31/24 20:54 risedronate sodium (From AdvReac Other Verified 08/31/24 20:54 Actonel) Family History Other Cancer Diabetes Heart disease Family History no significant family his Surgical History H/O radiofrequency ablation (RFA) of nerve of lumbar spine History of kyphoplasty Hx of tonsillectomy H/O partial thyroidectomy History of appendectomy History of cholecystectomy Hx of bilateral cataract extraction History of thyroid surgery Hx of appendectomy History of tonsillectomy Hx of cholecystectomy History of thymectomy History of parathyroidectomy Surgical History no surgical history Social History adopted: No household members: none housing: condominium number of children: 2 current occupational status: retired current occupational exposures/hazards: No pets and animals: No leisure activities: reading and other history of recent travel: Yes (concert in [place]) Smoking Status: Never smoker alcohol intake: never substance use type: does not use caffeine: No ROS ROS Narrative Review of Systems: Constitutional: Patient denies fever or chills. Eyes: Patient denies changes in vision or discharge from eyes. ENT: Patient denies runny nose, sore throat or ear pain. Resp: Patient denies shortness of breath or cough. CV: Patient denies chest pain, palpitations, heart racing or worsening lower extremity edema. GI: Patient denies abdominal pain, nausea, vomiting, diarrhea or constipation. : Patient denies dysuria or hematuria. MSK: Patient denies arthralgias or myalgias. Skin: Patient denies rash, abscess, wounds or jaundice. Psych: Patient denies symptoms of uncontrolled depression or anxiety. Neuro: Patient denies headache, paresthesias or new focal neurologic deficits. Allergy: Patient denies lip swelling, tongue swelling or urticaria. Hematology: Patient denies easy bleeding or easy bruisability. Endocrinology: Patient denies polyuria, polydipsia, polyphagia or heat/cold intolerance. 14 point ROS otherwise negative save for positives noted above in HPI. Vital Signs Vital Signs Vital Signs: 08/31/24 20:54 08/31/24 20:57 08/31/24 21:53 Temperature 99.1 F 99.1 F Temperature Source Oral Oral Pulse Rate 76 76 75 Respiratory Rate 18 18 16 Blood Pressure 186/68 H 186/68 H 192/51 H Blood Pressure Mean 107 107 98 Pulse Ox 95 95 98 Oxygen Delivery Method Room Air Room Air Room Air 08/31/24 22:03 08/31/24 22:15 08/31/24 22:15 Temperature 99 F Temperature Source Pulse Rate 77 75 75 Respiratory Rate 18 23 H 18 Blood Pressure 161/111 H 157/71 H Blood Pressure Mean 127 99 Pulse Ox 95 93 98 Oxygen Delivery Method Room Air 08/31/24 22:30 08/31/24 22:45 08/31/24 23:00 Temperature Temperature Source Pulse Rate 78 77 75 Respiratory Rate 22 H 19 H 18 Blood Pressure 170/76 H 191/73 H 157/71 H Blood Pressure Mean 98 106 99 Pulse Ox 98 Oxygen Delivery Method Room Air 08/31/24 23:00 08/31/24 23:15 08/31/24 23:30 Temperature Temperature Source Pulse Rate 78 73 76 Respiratory Rate 17 19 H 16 Blood Pressure 122/107 H 157/71 H 83/64 L Blood Pressure Mean 115 95 72 Pulse Ox 92 94 Oxygen Delivery Method 08/31/24 23:45 09/01/24 00:00 09/01/24 00:15 Temperature Temperature Source Pulse Rate 78 75 76 Respiratory Rate 20 H 21 H 20 H Blood Pressure 194/73 H 210/79 H Blood Pressure Mean 109 117 Pulse Ox Oxygen Delivery Method 09/01/24 00:21 09/01/24 00:30 09/01/24 00:37 Temperature Temperature Source Pulse Rate 75 72 75 Respiratory Rate 23 H 22 H 16 Blood Pressure 217/65 H 217/65 H Blood Pressure Mean 103 115 Pulse Ox 97 92 98 Oxygen Delivery Method Room Air Room Air 09/01/24 00:45 09/01/24 00:52 09/01/24 01:00 Temperature Temperature Source Pulse Rate 75 84 81 Respiratory Rate 20 H 22 H 20 H Blood Pressure 205/64 H 175/49 H Blood Pressure Mean 100 86 Pulse Ox 18 Oxygen Delivery Method Room Air Weight Weight: 165 lb 9.074 oz Body Mass Index (BMI) 32.3 Results Lab / Micro Data 08/31/24 22:47 08/31/24 22:47 Labs: Laboratory Results - last 24 hr 08/31/24 22:47: WBC 9.9, RBC 3.52 L, Hgb 10.4 L, Hct 32.6 L, MCV 92.6, MCH 29.5, MCHC 31.9 L, RDW Std Deviation 44.3 H, RDW Coeff of Tiffani 13.1, Plt Count 320, MPV 9.7, Immature Gran % (Auto) 0.600, Neut % (Auto) 75.7 H, Lymph % (Auto) 11.7 L, [place] % (Auto) 7.9, Eos % (Auto) 3.4, Baso % (Auto) 0.7, Absolute Neuts (auto) 7.5, Absolute Lymphs (auto) 1.15, Nucleated RBC % 0, Sodium 140, Potassium 4.0, Chloride 97 L, Carbon Dioxide 31.0, Anion Gap 11, BUN 33 H, Creatinine 1.06, Estim Creat Clear Calc 33.21 L, Est GFR (MDRD) Non-Af 51 L, BUN/Creatinine Ratio 31.1 H, Glucose 104 H, Calcium 9.9, Total Bilirubin 0.30, Direct Bilirubin 0.13, AST 26, ALT 9, Alkaline Phosphatase 69, Ammonia 19.3, Total Protein 6.6, Albumin 3.7, Globulin 3.0 08/31/24 23:05: Urine Color Yellow, Urine Clarity Clear, Urine pH 7.0, Ur Specific [place] 1.010, Urine Protein 30 H, Urine Glucose (UA) Normal, Urine Ketones Negative, Urine Occult Blood Negative, Urine Nitrite Negative, Urine Bilirubin Negative, Urine Urobilinogen Normal, Ur Leukocyte Esterase Negative, Urine RBC 0 SEEN, Urine WBC 0 SEEN, Ur Squamous Epith Cells 0 SEEN, Urine Bacteria 0 SEEN, Urine Mucus 0 SEEN Assessment & Plan Assessment/Plan (1) Hypertensive urgency: (2) Altered level of consciousness: (3) History of hemorrhagic cerebrovascular accident (CVA) with residual deficit: (4) Obesity (BMI 30.0-34.9): (5) NEL on CPAP: (6) Cerebral amyloid angiopathy: PLAN: Plan 1. Hypertensive Urgency; evidenced by elevated blood pressure of 186/68 mmHg present on admission that spiked up to as high as 217/65 mmHg with Altered Level of Consciousness in the setting of a known history of Hypertensive Emergency - Admit to PCU under observation status. Continue home regimen except furosemide with elevated BUN/creatinine ratio of 31.1 present on admission indicating mild dehydration which we will treat with gentle fluid hydration. Give hydralazine IV as needed for systolic blood pressure greater than 160 mmHg. Check UDS and MICHAEL to look for other potential causes of labile hypertension. Give acetaminophen as needed for pain or fever. 2. Recent admission here from August 30, 2024 to August 31, 2024 for increased Left-sided facial droop with Left-sided weakness worse than her usual deficit in addition to confusion and dysphagia; with MRI that was negative for acute intracranial abnormality and 2D echo bubble contrast study that was negative for PFO with patient recommended to go to retirement facility - but with patient refusing and opting to return home complicating #1 - Noted with the patient still very reluctant to go to retirement facility - but this time her family is also insisting that she go as she can no longer care for herself independently. 3. 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 4. Obesity; with BMI of 32.3 this admission plus NEL; on CPAP adding to the burden of disease outlined from #1 - #3 - Weight loss will be recommended. Resume nocturnal CPAP. This complicates her case and may hamper recovery. 5. History of cerebral amyloid angiopathy amplifying the pathology outlined from #1 - #4 - Noted. 6. Essential hypertension; on losartan and metoprolol tartrate twice daily - Hold furosemide but otherwise maintain home regimen plus give prn IV hydralazine as per plan outlined in #1. 7. Hyperlipidemia; on rosuvastatin - Resume statin. 8. History of partial thyroidectomy with subsequent hypothyroidism; currently not on treatment - Patient had a recent normal TSH of 0.881 on August 30, 2024. 9. History of parathyroidectomy - Noted. 10. History of thymectomy - Noted. 11. Remote history of scarlet fever - Noted. 12. History of COPD - Stable with no evidence of acute flare at this time. Continue nebulizers prn. 13. History of paroxysmal atrial fibrillation; currently not on anticoagulation but taking baby aspirin daily - Resume BASA daily as before. 14. Chronic venous insufficiency - Stable. 15. History of migraine headaches - Stable with no active complaints related to this issue at this time. 16. REYES - Stable with hemoglobin of 10.4 g/dL and MCV of 92.6 fL present on admission. 17. History of vitamin D deficiency - Check vitamin D level this admission. 18. History of secondary pulmonary hypertension - Noted. 19. Osteoporosis; on denosumab - Restart this agent as outpatient. 20. OA; with history of closed L2 compression fracture; s/p kyphoplasty and RFA of nerve of lumbar spine - Give acetaminophen prn pain as outlined in #1. 21. DVT prophylaxis - SCD's only in light of #3. Total time: Approximately (but not less than) 85 minutes. Charges/Coding Visit Charges OBSV E&M: 70266 Observ/hosp same date L3
[2024-09-01] MEDS: Metoprolol Tartrate 100 MG Tablet PO ×3 (03:33→20:47)
[2024-09-01] MEDS: Pramipexole Di-HCl 1 MG Tablet 3 MG PO ×2 (03:33→20:47)
[2024-09-01] MEDS: Acetaminophen 325 MG Tablet 650 MG PO ×3 (03:34→20:47)
[2024-09-01] MEDS: 0.9% Saline Lock 10 ML Syringe IV (03:49)
[2024-09-01] MEDS: 0.9% Normal Saline (1000mL) 1,000 ML 50 ML IV (03:50)
[2024-09-01 03:51] LABS: Amphetamine Urine NEGATIVE (<1000 ng/mL); Barbiturate Urine NEGATIVE (< 200 ng/mL); Benzodiazepine Urine NEGATIVE (< 200 ng/mL); Buprenorphine Urine NEGATIVE (< 200 ng/mL); Cocaine Urine NEGATIVE (< 300 ng/mL); Fentanyl, Urine NEGATIVE; Methadone Urine NEGATIVE (< 300 ng/mL); Opiates Urine NEGATIVE (< 300 ng/mL); Oxycodone, Urine NEGATIVE (< 100 ng/mL); PCP Urine NEGATIVE (< 25 ng/mL); THC Urine NEGATIVE (< 50 ng/mL)
[2024-09-01 03:51] LABS: Alcohol, Blood (Medical)-Serum < 10.1 mg/dL (<=10.0)
[2024-09-01] MEDS: hydrALAZINE 20 MG/ML Vial 5 MG IV (04:58)
[2024-09-01] MEDS: Ensure Plus High Protein 120 ML LIQUID PO (09:08)
[2024-09-01] MEDS: Magnesium Chloride 64 MG Delay Rel.Tablet 128 MG PO (09:08)
[2024-09-01] MEDS: Cholecalciferol (VIT D3) 25 MCG TABLET (1,000 UNITS) 50 MCG PO (09:08)
[2024-09-01] MEDS: Losartan Potassium 100 MG Tablet PO (09:08)
[2024-09-01] MEDS: Ascorbic Acid 500 MG Tablet PO (09:08)
[2024-09-01] MEDS: Aspirin 81 MG TAB.CHEW PO (09:08)
[2024-09-01] MEDS: Chlorthalidone 50 MG Tablet 12.5 MG PO (09:13)
--- NOTE | 2024-09-01 14:48 | PCM.PN.HOSP ---
Reason for Visit Reason for Visit: Diagnoses Obesity, class 1 (09/01/24) Organ-limited amyloidosis (09/01/24) Obstructive sleep apnea (adult) (pediatric) (09/01/24) Hypertensive urgency (09/01/24) Cerebral amyloid angiopathy (09/01/24) Unspecified sequelae of cerebral infarction (09/01/24) Transient alteration of awareness (09/01/24) Objective Data Objective Data Vital Signs: Vital Signs Temp Pulse Resp BP Pulse Ox O2 Del Method 97.5 F L 70 18 154/75 H 93 Room Air 09/01/24 09:00 09/01/24 09:09 09/01/24 09:00 09/01/24 09:09 09/01/24 09:00 09/01/24 14:06 Oxygen Delivery Method Room Air Weight: 163 lb 2.273 oz Body Mass Index (BMI) 28.0 Intake & Output: Intake and Output for Last 24 Hours 08/30/24 08/31/24 09/01/24 23:59 23:59 23:59 Intake Total 320 / 320 Output Total 400 / 400 Balance -80 / -80 Lab / Micro Data 08/31/24 22:47 08/31/24 22:47 Labs: Laboratory Results - last 24 hr 08/31/24 22:47: WBC 9.9, RBC 3.52 L, Hgb 10.4 L, Hct 32.6 L, MCV 92.6, MCH 29.5, MCHC 31.9 L, RDW Std Deviation 44.3 H, RDW Coeff of Tiffani 13.1, Plt Count 320, MPV 9.7, Immature Gran % (Auto) 0.600, Neut % (Auto) 75.7 H, Lymph % (Auto) 11.7 L, [place] % (Auto) 7.9, Eos % (Auto) 3.4, Baso % (Auto) 0.7, Absolute Neuts (auto) 7.5, Absolute Lymphs (auto) 1.15, Nucleated RBC % 0, Sodium 140, Potassium 4.0, Chloride 97 L, Carbon Dioxide 31.0, Anion Gap 11, BUN 33 H, Creatinine 1.06, Estim Creat Clear Calc 33.21 L, Est GFR (MDRD) Non-Af 51 L, BUN/Creatinine Ratio 31.1 H, Glucose 104 H, Calcium 9.9, Total Bilirubin 0.30, Direct Bilirubin 0.13, AST 26, ALT 9, Alkaline Phosphatase 69, Ammonia 19.3, Total Protein 6.6, Albumin 3.7, Globulin 3.0, Ethyl Alcohol < 10.1 08/31/24 23:05: Urine Color Yellow, Urine Clarity Clear, Urine pH 7.0, Ur Specific [place] 1.010, Urine Protein 30 H, Urine Glucose (UA) Normal, Urine Ketones Negative, Urine Occult Blood Negative, Urine Nitrite Negative, Urine Bilirubin Negative, Urine Urobilinogen Normal, Ur Leukocyte Esterase Negative, Urine RBC 0 SEEN, Urine WBC 0 SEEN, Ur Squamous Epith Cells 0 SEEN, Urine Bacteria 0 SEEN, Urine Mucus 0 SEEN, Urine Opiates Screen NEGATIVE, U Buprenorphine Qual NEGATIVE, Ur Oxycodone Screen NEGATIVE, Urine Methadone Screen NEGATIVE, Urine Fentanyl Screen NEGATIVE, Ur Barbiturates Screen NEGATIVE, Ur Phencyclidine Scrn NEGATIVE, Ur Amphetamines Screen NEGATIVE, U Benzodiazepines Scrn NEGATIVE, Urine Cocaine Screen NEGATIVE, U Cannabinoids Screen NEGATIVE Physical Exam Narrative Seen and examined. Patient for discharge yesterday as part of the request of the patient and stroke workup was negative. She had the autonomy of making decision and went home and then brought by the family for being confused. In the morning, she feels almost baseline. Physical exam General: Alert, Oriented x3, Cooperative HEENT: Atraumatic, PERRLA, EOMI, Normocephalic. Has chronic diplopia Oral: No Gingival or Mucosal Lesions/ Ulcerations Neck: Supple, No JVD, Negative Carotid Bruits Chest wall/Lungs: Air entry diminished in bilateral lung bases. No crepitation/rhonchi Cardiovascular: Regular rate, Regular Rhythm,No M/G/R Abdomen: Bowel Sounds Present, Soft, Non Tender, Non-Distended : No dysuria. No renal angle tenderness. No suprapubic tenderness. Extremities: No edema, Capillary Refill Less than 3 Seconds Skin: No rashes, No breakdown Musculoskeletal: No Tenderness to Palpation of Joints or Extremities. Degenerative arthritis of knees. Neurological: Cranial nerves II-XII grossly intact, DTR 2+/4. No acute focal neurological deficit. Psych/Mental Status: Flat affect. Mild forgetfulness. Assessment & Plan Assessment/Plan (1) Altered level of consciousness: (2) Hypertensive urgency: PLAN: Plan 89-year-old female was admitted for prehospital stroke alert of increased left-sided facial droop and left-sided weakness, worse than her usual left-sided residual deficit. She also had difficulty in putting sentence and was hypotensive. # Confusion with possibility of MCI/mild dementia: Patient is being admitted in the PCU. She was discharged on 08/31 and her workup was negative for acute encephalopathy. Acute stroke was ruled out on 08/31 with MRI brain negative for acute intracranial abnormality. MRI brain was negative for acute intracranial abnormality. 2D echo with bubble contrast study and was negative for PFO. Normal left atrium. Patient was seen by teleneurologist, [facility]. The patient has chronic DicloPR. As per the neurologist, some of her neurological symptoms may be from uncontrolled hypertension including double vision. U tox was negative. Serum alcohol negative. Serum ammonia normal. B12 338 normal. TSH 0.881. Fasting profile shows TC 222, LDL 119. Patient is back to her baseline therefore I do not see any indication of repeating the workup. #R leg pain due to degenerative arthritis of right knee - Patient reporting some right leg pain and reluctance to lift leg. In the morning she said she feels right leg weakness which is chronic. X-ray of right hip pelvis and knee x-ray reported severe arthrosis # History of paroxysmal atrial fibrillation -Presently in normal sinus rhythm -Coumadin stopped after intracranial hemorrhage 04/2024 # Restless leg syndrome -continue patient's home medication regimen Patient on pramipexole. Advised to avoid tramadol and pramipexole together. Tramadol dose frequency decreased to twice daily as needed. Hypertensive urgency: Blood pressure on admission was 191/65. Currently it is 154/75. Slowly titrate down the blood pressure with systolic blood pressure less than 140, appropriate for her age. # CKD stage IIIb: Creatinine is normal range 0.94-1.06 but creatinine clearance elevated due to increased age. #NEL - Appears in history that she at least at some point was on CPAP, checking VBG, if able to verify patient is on CPAP can continue here patient is compliant or will place patient on BiPAP if hypercapnic #DVT ppx: SCDs Charges/Coding Visit Charges Inpatient E&M: 16922 Subs Hosp L2
--- NOTE | 2024-09-01 15:04 | CASEMGMT ---
MINNIE called patient's daughter Janki. MINNIE introduced self and role at [facility]. MINNIE explained that patient is observation status so she would have to private pay to go to a detention. Janki said patient does have the funds to pay. MINNIE will email Janki the lists of nursing homes and their private pay prices. Tammy TOVAR
[2024-09-01] MEDS: Atorvastatin Calcium 40 MG Tablet PO (20:48)
[2024-09-02] VITALS (7 sets, daily range): BP systolic 119–187; BP diastolic 51–70; PULSE 65–86; RESP 18; TEMP 36.3–37.1; O2SAT 93–97
[2024-09-02] MEDS: hydrALAZINE 20 MG/ML Vial 5 MG IV (03:58)
[2024-09-02] MEDS: Acetaminophen 325 MG Tablet 650 MG PO ×3 (05:08→21:03)
--- NOTE | 2024-09-02 08:50 | PN.HOSP_ITS ---
Reason for Visit Reason for Visit: Diagnoses Obesity, class 1 (09/01/24) Organ-limited amyloidosis (09/01/24) Obstructive sleep apnea (adult) (pediatric) (09/01/24) Hypertensive urgency (09/01/24) Cerebral amyloid angiopathy (09/01/24) Unspecified sequelae of cerebral infarction (09/01/24) Transient alteration of awareness (09/01/24) Objective Data Objective Data Vital Signs: Vital Signs Temp Pulse Resp BP Pulse Ox O2 Del Method 97.4 F L 70 18 186/70 H 93 Room Air 09/02/24 03:07 09/02/24 03:58 09/02/24 03:07 09/02/24 03:07 09/02/24 03:07 09/02/24 07:37 Oxygen Delivery Method Room Air Weight: 163 lb 2.273 oz Body Mass Index (BMI) 28.0 Intake & Output: Intake and Output for Last 24 Hours 08/31/24 09/01/24 09/02/24 23:59 23:59 23:59 Intake Total 1680 / 1680 Output Total 800 / 800 Balance 880 / 880 Lab / Micro Data 08/31/24 22:47 08/31/24 22:47 Physical Exam Narrative Seen and examined. Blood pressure high otherwise no other acute issues. Forgetfulness. Physical exam General: Alert, Oriented x3, Cooperative HEENT: Atraumatic, PERRLA, EOMI, Normocephalic. Has chronic diplopia Oral: No Gingival or Mucosal Lesions/ Ulcerations Neck: Supple, No JVD, Negative Carotid Bruits Chest wall/Lungs: Air entry diminished in bilateral lung bases. No crepitation/rhonchi Cardiovascular: Regular rate, Regular Rhythm,No M/G/R Abdomen: Bowel Sounds Present, Soft, Non Tender, Non-Distended : No dysuria. No renal angle tenderness. No suprapubic tenderness. Extremities: No edema, Capillary Refill Less than 3 Seconds Skin: No rashes, No breakdown Musculoskeletal: No Tenderness to Palpation of Joints or Extremities. Degenerative arthritis of knees. Neurological: Cranial nerves II-XII grossly intact, DTR 2+/4. No acute focal neurological deficit. Psych/Mental Status: Flat affect. Mild forgetfulness. Assessment & Plan Assessment/Plan (1) Altered level of consciousness: (2) Hypertensive urgency: PLAN: Plan 89-year-old female was admitted for prehospital stroke alert of increased left- sided facial droop and left-sided weakness, worse than her usual left-sided residual deficit. She also had difficulty in putting sentence and was hypotensive. # Confusion with possibility of MCI/mild dementia: Patient is being admitted in the PCU. She was discharged on 08/31 and her workup was negative for acute encephalopathy. Acute stroke was ruled out on 08/31 with MRI brain negative for acute intracranial abnormality. MRI brain was negative for acute intracranial abnormality. 2D echo with bubble contrast study and was negative for PFO. Normal left atrium. Patient was seen by teleneurologist, [facility]. The patient has chronic diplopia. As per the neurologist, some of her neurological symptoms may be from uncontrolled hypertension including double vision. U tox was negative. Serum alcohol negative. Serum ammonia normal. B12 338 normal. TSH 0.881. Fasting profile shows TC 222, LDL 119. Patient is back to her baseline therefore I do not see any indication of repeating the workup. 09/02: Yesterday had long talk about 16 minutes with the patient's granddaughter in law. She was trying to coerce to change from observation to inpatient citing the regions of forgetfulness, cannot take care of herself and other problem of elderly patient. I asked that I have no good reason for changing to inpatient and more than that, the closing department of the hospitalist changes the status of the patient. Advised to talk to utilization department. Today, patient said her granddaughter in law is not power of securities attorney for health and she is not active caregiver. Currently the patient not safe enough for discharge. #R leg pain due to degenerative arthritis of right knee - Patient reporting some right leg pain and reluctance to lift leg. In the morning she said she feels right leg weakness which is chronic. X-ray of right hip pelvis and knee x-ray reported severe arthrosis # History of paroxysmal atrial fibrillation -Presently in normal sinus rhythm -Coumadin stopped after intracranial hemorrhage 04/2024 # Restless leg syndrome -continue patient's home medication regimen Patient on pramipexole. Advised to avoid tramadol and pramipexole together. Tramadol dose frequency decreased to twice daily as needed. Hypertensive urgency: Blood pressure on admission was 191/65. Currently it is 154/75. Slowly titrate down the blood pressure with systolic blood pressure less than 140, appropriate for her age. 09/02: Yesterday patient was started on chlorthalidone 12.5 mg daily. Today blood pressure is still high therefore amlodipine 10 mg daily started. Does not want to put on full dose chlorthalidone 25 mg daily because of dehydration/hypovolemia and high risk of fall # CKD stage IIIb: Creatinine is normal range 0.94-1.06 but creatinine clearance elevated due to increased age. #NEL - Appears in history that she at least at some point was on CPAP, checking VBG, if able to verify patient is on CPAP can continue here patient is compliant or will place patient on BiPAP if hypercapnic #DVT ppx: SCDs Charges/Coding Visit Charges Inpatient E&M: 73057 Subs Hosp L2
--- NOTE | 2024-09-02 09:38 | CASEMGMT ---
Discharge Planning Call rec'd on 09/01/24, from pts grandsons , Danita Gotti. Danita had concerns with pts observation status. Attempted to explain procedure and that we had already reached out to in hopes that pt had a qualifying dx for inpt but as of this time, pt did not. Danita became very upset, demanding to speak with pts physician, stating that she had worked here and that we needed to do better. This credit underwriter assured Danita that msg would be given for physician to contact her, adding that he may not yet today have an opportunity to call her. She was fine with that. Charge nurse asked to notify physician. Case Mgmt director, Evelyn, asked to follow up with family concern. SW updated. Cassandra Church DC Planning Asst.
[2024-09-02] MEDS: Losartan Potassium 100 MG Tablet PO (10:24)
[2024-09-02] MEDS: Ascorbic Acid 500 MG Tablet PO (10:24)
[2024-09-02] MEDS: Aspirin 81 MG TAB.CHEW PO (10:24)
[2024-09-02] MEDS: Metoprolol Tartrate 100 MG Tablet PO ×2 (10:24→21:02)
[2024-09-02] MEDS: Cholecalciferol (VIT D3) 25 MCG TABLET (1,000 UNITS) 50 MCG PO (10:24)
[2024-09-02] MEDS: Magnesium Chloride 64 MG Delay Rel.Tablet 128 MG PO (10:25)
[2024-09-02] MEDS: Chlorthalidone 50 MG Tablet 12.5 MG PO (10:25)
--- NOTE | 2024-09-02 12:45 | CASEMGMT ---
CM Director Follow-up: Notification received of family with concern and a request from pt's daughter Janki Moralez to be contacted. This CM Director phoned Janki. Janki relayed the events that have occurred starting two days prior to the pt's first presentation and her second return to the ED. Janki stated pt was independent prior but Janki did arrange pt's meds in a med box for AM and PM meds, a SPEECH PATHOLOGY SUPERVISOR would provide assistance Friday and Fridays for 2 hours each day, and [facility] provided group home and therapy services in the home. Janki states she is concerned about pt's abilty to return home alone with current services and acknowledges when pt is not confused she will and has refused to go to a SNF or assisted living facility. Per Janki's request, reviewed pt's PT evaluation which noted pt was able to ambulate a total of 150ft. Janki expressed comfort in knowing pt could ambulate. Janki asked about an ST evaluation. An order for ST was not found, Dr. Sullivan was contacted and he stated he would place the order. Janki asked about cognitive assessments. Explained that assessments have been performed by the neurologist and hospitalist but further cognitive assessments may need to be performed as an outpatient to determine the presence of other more chronic conditions. Janki with questions about pt's admission status as observation. Explained criteria and process for determining status and reassured Janki that pt's status has been reviewed by the team and will continue to be reviewed for appropriateness to change to inpt status. Janki without additional questions regarding pt's status. Discussed next steps for determining dc disposition. Janki states she would like to have the results of the ST evaluation prior to making further decisions. She did state that she expects the pt to refuse to go to a SNF or AL so expects to take pt home with resumption of previous services but wants to be assured that pt has been cleared by ST. Janki's primary concern is with pt's ability to manage meds at home independently even with pill boxes. Explained there is limited availability for this service but here are locked med boxes with timers that could be purchased to help facilitate medication administration with additional safety features if she was interested. Janki asked to have the contact her after the ST eval to discuss discharge plan. Janki was agreeable to a referral to the [facility] Care Consultation program for additional support. Will submit referral form. Janki denied any additional questions at this time. Karlene Brooks RN ACM
--- NOTE | 2024-09-02 14:12 | CASEMGMT ---
MINNIE called patient's daughter Janki and let her know that Speech Therapy saw patient and they are not recommending any further therapy. Janki asked how patient did with PT/OT. MINNIE let her know therapy has not seen her yet today. Janki asked if SW could let her know what therapy says when they see patient. MINNIE spoke with PT and patient is next on her list. Tammy Sorensen MSW GUY
--- NOTE | 2024-09-02 14:50 | CASEMGMT ---
MINNIE spoke with therapy and patient did okay. SW went to patient's room and patient wanted to talk with her daughter. SW obtained SW's phone and went back to patient's room and patient was sleeping. SW was able to wake patient up, but she seemed disoriented. Patient told MINNIE there was a wagon in the room. MINNIE assisted patient in calling her daughter Janki. MINNIE put Janki on speaker phone while patient talked with her. Patient asked for clothes. Janki was asking patient questions about how she did with therapy. Patient did answer appropriately. Patient's speech was slow and somewhat slurred. Patient was sleepy. SW asked patient if she would be agreeable to going to a facility short term for rehab. [facility] MINNIE explained to patient that is outpatient therapy. MNINIE is talking to patient about going to a facility where she would stay for a week or so and get stronger before going home. Janki also mentioned to patient that she had issues with her medications the other day and if she went somewhere they could help her with this. Patient said she was agreeable. MINNIE asked patient if it would be okay if MINNIE and Janki talked about facilities for her to go to. Patient said that would be okay. MINNIE ended the phone call. MINNIE then went back to MINNIE's desk and called Janki. Janki asked if a referral could be sent to [facility] and then [facility]. MINNIE reminded Janki that it would be private pay and she verbalized understanding. Janki asked if patient goes to get discharged and changes her mind what happens. MINNIE told Janki we will deal with that when and if it happens, but right now patient is in agreement. Janki thanked MINNIE. MINNIE told Janki HARTMAN will likely not bet back to her today, but will follow up with her in the am. MINNIE asked Cassandra to please send a referral to [facility]. Tammy Sorensen AUTOMATION ENGINEER MARINE SERVICE MANAGER
--- NOTE | 2024-09-02 15:26 | CASEMGMT ---
Addendum entered by Cassandra Church 09/03/24 09:44: [facility] accepted. SW updated. Cassandra Church DC Planning Asst. Addendum entered by Cassandra Church 09/02/24 15:46: [facility] declined d/t no bed availability. SW updated. Referral sent to [facility]. Cassandra Church DC Planning Asst. Original Note: Discharge Planning Referral sent to [facility]. Cassandra Church DC Planning Asst.
[2024-09-02] MEDS: amLODIPine 10 MG Tablet PO (15:45)
[2024-09-02 20:24] LABS: Absolute Lymphocyte Count 1.63 X10^3/uL (0.83-4.51); Absolute Neutrophil Count 6.4 X10^3/uL (2.0-7.7); Basophil# 0.05 X10^3/uL; Basophil% 0.5 % (0-1); Eosinophil# 0.37 X10^3/uL; Eosinophils% 3.9 % (0-5); Hematocrit 31.2 % (37-47); Lymphocyte # 1.63 X10^3/ul (0.83-4.51); Lymphocyte % 17.4 % (19-41); Mean Corp Hgb Conc 32.1 g/dL (32-36); Mean Corpuscular Hgb 29.6 pg (27.0-32.0); Mean Corpuscular Volume 92.3 fL (81-99); Mean Platelet Vol. 9.5 fl (6.2-12.0); Monocyte% 9.6 % (0-10); NRBC Flagged by Analyzer 0 % (0-5); Neutrophil % 68.3 % (47-70); Platelet Count 314 K/mm3 (150-450); RBC Distribution Width CV 13.1 % (11.6-14.6); RBC Distribution Width SD 44.2 fl (35.1-43.9); Red Blood Count 3.38 M/mm3 (4.2-5.4); White Blood Count 9.4 K/mm3 (4.4-11.0)
[2024-09-02] MEDS: Pramipexole Di-HCl 1 MG Tablet 3 MG PO (21:02)
[2024-09-02] MEDS: Atorvastatin Calcium 40 MG Tablet PO (21:03)
[2024-09-02] MEDS: 0.9% Saline Lock 10 ML Syringe IV (21:04)
[2024-09-02 21:11] LABS: ALB/GLOB Ratio 1.3 RATIO (0.9-2.4); AST(SGOT) 23 U/L (<=31); Alanine Aminotransfer ALT/SGPT 9 U/L (<=34); Albumin, Serum 3.6 g/dL (3.4-4.8); Alkaline Phosphatase 62 U/L (35-104); Anion Gap 11 (5-15); BUN 23 mg/dL (4-19); BUN/Creat Ratio 28.3 RATIO (10-20); Calcium,Total 9.8 mg/dL (7.6-11.0); Carbon Dioxide 27.2 mmol/L (21.0-32.0); Chloride 100 mmol/L (98-108); Creatinine, Serum 0.82 mg/dL (0.70-1.20); EST Glomerular Filtration Rate 69 (>60); Estimated Creatinine Clearance 46.73 ml/min (50-250); Globulin 2.7 g/dL (2.2-4.2); Glucose 108 mg/dL (70-99); Magnesium 2.1 mg/dL (1.5-2.2); Phosphorus 4.5 mg/dL (2.7-4.5); Potassium 3.9 mmol/L (3.3-5.1); Protein, Total 6.3 g/dL (5.9-8.4); Sodium Level 139 mmol/L (133-145); Total Bilirubin 0.27 mg/dL (0.00-1.30)
[2024-09-03 03:00] VITALS: BP 187/60; PULSE 60; RESP 18; TEMP 36.2; O2SAT 97
[2024-09-03 03:09] VITALS: PULSE 60
[2024-09-03] MEDS: hydrALAZINE 20 MG/ML Vial 5 MG IV (03:09)
[2024-09-03 04:19] VITALS: BP 142/56
[2024-09-03] MEDS: Acetaminophen 325 MG Tablet 650 MG PO ×2 (05:13→13:12)
[2024-09-03 05:39] LABS: Absolute Lymphocyte Count 1.68 X10^3/uL (0.83-4.51); Absolute Neutrophil Count 4.3 X10^3/uL (2.0-7.7); Basophil# 0.06 X10^3/uL; Basophil% 0.8 % (0-1); Eosinophils% 6.9 % (0-5); Hematocrit 30.7 % (37-47); Hemoglobin 9.7 g/dL (12.0-15.0); Lymphocyte # 1.68 X10^3/ul (0.83-4.51); Lymphocyte % 23.3 % (19-41); Mean Corp Hgb Conc 31.6 g/dL (32-36); Mean Corpuscular Hgb 29.3 pg (27.0-32.0); Mean Corpuscular Volume 92.7 fL (81-99); Mean Platelet Vol. 9.9 fl (6.2-12.0); Monocyte# 0.59 X10^3/uL; Monocyte% 8.2 % (0-10); NRBC Flagged by Analyzer 0 % (0-5); Neutrophil # 4.34 X10^3/uL (2.7-7.7); Neutrophil % 60.4 % (47-70); Platelet Count 302 K/mm3 (150-450); RBC Distribution Width SD 44.4 fl (35.1-43.9); Red Blood Count 3.31 M/mm3 (4.2-5.4); White Blood Count 7.2 K/mm3 (4.4-11.0)
[2024-09-03 06:17] LABS: Anion Gap 14 (5-15); BUN 20 mg/dL (4-19); BUN/Creat Ratio 26.1 RATIO (10-20); Calcium,Total 9.5 mg/dL (7.6-11.0); Carbon Dioxide 23.3 mmol/L (21.0-32.0); Chloride 102 mmol/L (98-108); Creatinine, Serum 0.78 mg/dL (0.70-1.20); EST Glomerular Filtration Rate 73 (>60); Glucose 113 mg/dL (70-99); Potassium 3.2 mmol/L (3.3-5.1); Sodium Level 139 mmol/L (133-145)
[2024-09-03 09:00] VITALS: BP 134/45; PULSE 75; RESP 16; TEMP 36.6; O2SAT 96
[2024-09-03 09:02] VITALS: BP 134/45; PULSE 75
[2024-09-03] MEDS: Ascorbic Acid 500 MG Tablet PO (09:02)
[2024-09-03] MEDS: Chlorthalidone 50 MG Tablet 12.5 MG PO (09:02)
[2024-09-03] MEDS: Losartan Potassium 100 MG Tablet PO (09:02)
[2024-09-03] MEDS: Cholecalciferol (VIT D3) 25 MCG TABLET (1,000 UNITS) 50 MCG PO (09:02)
[2024-09-03] MEDS: Aspirin 81 MG TAB.CHEW PO (09:02)
[2024-09-03] MEDS: Magnesium Chloride 64 MG Delay Rel.Tablet 128 MG PO (09:02)
[2024-09-03] MEDS: Metoprolol Tartrate 100 MG Tablet PO (09:02)
[2024-09-03] MEDS: amLODIPine 10 MG Tablet PO (09:02)
[2024-09-03] MEDS: Potassium Chloride Oral Tablet 20 MEQ 40 MEQ PO (09:13)
--- NOTE | 2024-09-03 09:19 | CASEMGMT ---
[facility] accepted patient. They will need 30 days up front. SW checked in with patient. Patient did remember talking with SW yesterday. SW let patient know that Her daughter mentioned [facility] for possible short term rehab. SW told patient [facility] was full, but [facility] did accept her. Patient asked how long she would be there. SW told her at least a couple of weeks. Patient said she is agreeable to 2 weeks. MINNIE called patient's daughter Janki and left her a voice mail letting her know [facility] was full, [facility] accepted and will need her to contact their business office for the 30 days up front. MINNIE also requested she call MINNIE back to obtain this information. Plan: d/c to [facility] under intermediate level of care pending MINNIE talking with daughter. Tammy Sorensen SEAT NAILER GUY
--- NOTE | 2024-09-03 10:09 | TREXTCAR_ITS ---
Diet Diet Order/Speech Therapy: 09/01/24 15:22 Diet: Regular - General Food consistency:: Easy to Chew Liquid Consistency:: Regular/Thin Dietary Modifications:: Gluten Free Type of Dietary Supplement:: Prudence Magic Cup w/ L & D Routine Orders/Code Status Suppository Type: Dulcolax 10mg Suppository Frequency: Daily PRN DC O2, CPAP, BIPAP needs Home O2 Discharge instructions: No Therapies Extremity Affected:: Bilateral Lower Physical Therapy: Eval and Treat Occupational Therapy: Eval and Treat Speech Therapy: Eval and Treat Problem/Diagnosis (1) Altered level of consciousness: Status: Acute Code(s): R40.4 - Transient alteration of awareness (2) Hypertensive urgency: Status: Acute Code(s): I16.0 - Hypertensive urgency Plan 89-year-old female was admitted for prehospital stroke alert of increased left- sided facial droop and left-sided weakness, worse than her usual left-sided residual deficit. She also had difficulty in putting sentence and was hypotensive. # Confusion with possibility of MCI/mild dementia: Patient is being admitted in the PCU. She was discharged on 08/31 and her workup was negative for acute encephalopathy. Acute stroke was ruled out on 08/31 with MRI brain negative for acute intracranial abnormality. MRI brain was negative for acute intracranial abnormality. 2D echo with bubble contrast study and was negative for PFO. Normal left atrium. Patient was seen by teleneurologist, [facility]. The patient has chronic diplopia. As per the neurologist, some of her neurological symptoms may be from uncontrolled hypertension including double vision. U tox was negative. Serum alcohol negative. Serum ammonia normal. B12 338 normal. TSH 0.881. Fasting profile shows TC 222, LDL 119. Patient is back to her baseline therefore I do not see any indication of repeating the workup. 09/02: Yesterday had long talk about 16 minutes with the patient's granddaughter in law. She was trying to coerce to change from observation to inpatient citing the regions of forgetfulness, cannot take care of herself and other problem of elderly patient. I asked that I have no good reason for changing to inpatient and more than that, the closing department of the hospitalist changes the status of the patient. Advised to talk to utilization department. Today, patient said her granddaughter in law is not power of hotel maintenance worker for health and she is not active caregiver. Currently the patient not safe enough for discharge. #R leg pain due to degenerative arthritis of right knee - Patient reporting some right leg pain and reluctance to lift leg. In the morning she said she feels right leg weakness which is chronic. X-ray of right hip pelvis and knee x-ray reported severe arthrosis # History of paroxysmal atrial fibrillation -Presently in normal sinus rhythm -Coumadin stopped after intracranial hemorrhage 04/2024 # Restless leg syndrome -continue patient's home medication regimen Patient on pramipexole. Advised to avoid tramadol and pramipexole together. Tramadol dose frequency decreased to twice daily as needed. Hypertensive urgency: Blood pressure on admission was 191/65. Currently it is 154/75. Slowly titrate down the blood pressure with systolic blood pressure less than 140, appropriate for her age. 09/02: Yesterday patient was started on chlorthalidone 12.5 mg daily. Today blood pressure is still high therefore amlodipine 10 mg daily started. Does not want to put on full dose chlorthalidone 25 mg daily because of dehydration/hypovolemia and high risk of fall # CKD stage IIIb: Creatinine is normal range 0.94-1.06 but creatinine clearance elevated due to increased age. #NEL - Appears in history that she at least at some point was on CPAP, checking VBG, if able to verify patient is on CPAP can continue here patient is compliant or will place patient on BiPAP if hypercapnic #DVT ppx: SCDs Allergies/Procedures Done in Hospital Allergies cefazolin (From Ancef) Allergy (Severe, Verified 08/31/24 20:54) Swelling Thoat and mouth swelling silk Allergy (Intermediate, Verified 08/31/24 20:54) itching duloxetine (From Cymbalta) Allergy (Unknown, Verified 08/31/24 20:54) Hives shellfish derived Allergy (Unknown, Verified 08/31/24 20:54) Other Throat irritation beet (Beet) Allergy (Verified 08/31/24 20:54) Hives cantaloupe Allergy (Verified 08/31/24 20:54) Food Allergy HIVES eggplant Allergy (Verified 08/31/24 20:54) Hives Food Allergies: Uncoded Allergy (Verified 08/31/24 20:54) Itching fermented foods, concentrates levofloxacin (From Levaquin) Allergy (Verified 08/31/24 20:54) Unknown mold Allergy (Verified 08/31/24 20:54) NEEDS FOLLOW-UP Penicillins Allergy (Verified 08/31/24 20:54) Unknown tomato Allergy (Verified 08/31/24 20:54) Food Allergy wheat Allergy (Verified 08/31/24 20:54) Hives gabapentin (From Neurontin) Adverse Reaction (Verified 08/31/24 20:54) Other meloxicam (From Mobic) Adverse Reaction (Verified 08/31/24 20:54) Other oxycodone (From OxyIR) Adverse Reaction (Verified 08/31/24 20:54) Nausea risedronate sodium (From Actonel) Adverse Reaction (Verified 08/31/24 20:54) Other Type of Care/Length of Stay Estimated LOS: Convalescent Care Less Than 30 days Type of Care Needed: Skilled Rehab Potential: Good Prognosis: Good Additional Orders/Day of Discharge Day of Discharge: 09/03/24 Dietary and Speech Recommendations Dietitian Recommendations/Changes: Adjust to regular, gluten free diet. Will order chocolate magic cup with meals. Will monitor weight trends. Discharge Plan Admission Admit Date/Time: 09/01/24 02:05 Primary Reason for Your Visit: Generalized weakness. Failure to thrive Attending Provider: Charles Sullivan Primary Care Provider: Hussein Swenson Consulting Providers: Juan José Suarez Discharge Orders/Prescriptions Prescriptions: New chlorthalidone 50 mg Tablet 12.5 mg PO BREAKFAST Qty: 0 0RF Rx Instructions: Hold for SBP less than 140 mmHg amlodipine 10 mg Tablet 10 mg PO DAILY Qty: 0 0RF Rx Instructions: Hold for SBP less than 130 mmHg Continued Prolia 60 mg/mL syringe 60 mg SC [id number] Patient Comments: due February Rx Instructions: due in february aspirin 81 mg tablet,chewable 1 tab PO DAILY metoprolol tartrate 100 mg Tablet 100 mg PO BID 30 Days Qty: 60 0RF acetaminophen 500 mg Tablet 1,000 mg PO Q8 Qty: 0 0RF losartan 100 mg Tablet 100 mg PO DAILY Qty: 0 0RF magnesium oxide 420 mg tablet 420 mg PO DAILY ascorbic acid (vitamin C) [C-500] 500 mg tablet 500 mg PO DAILY cholecalciferol (vitamin D3) 25 mcg (1,000 unit) capsule 2,000 unit PO DAILY pramipexole 1 mg Tablet 3 mg PO QHS 30 Days Qty: 90 0RF Rx Instructions: Pramipexole and tramadol might make drowsiness worse therefore try to avoid together rosuvastatin 20 mg tablet 20 mg PO QHS 30 Days Qty: 30 2RF Changed tramadol 50 mg Tablet 50 mg PO BID PRN (Reason: pain) 7 Days Qty: 28 0RF Rx Instructions: Avoid tramadol and pramipexole at the same time. Discontinued furosemide 40 mg Tablet 40 mg PO DAILY 30 Days Qty: 30 0RF Referrals / Follow Up: Hussein Swenson MD [Primary Care Provider] - Apolinar Holland MD [Non-Staff -Ordering Privileges] - Within 1 Month (History of ICH in the past) Disposition Disposition (needs filled in before D/C Order can be placed): [facility] Facility
--- NOTE | 2024-09-03 11:00 | CASEMGMT ---
SW received a return call from patient's daughter Janki. She did receive MINNIE's voice mail. She asked about private duty etc. She asked for the phone number for [facility] so she could call and talk about finances with them. Await response. Tammy Sorensen DIRECTOR OF AVIATION GUY
--- NOTE | 2024-09-03 11:07 | CASEMGMT ---
MINNIE did email Janki the private duty SNF list in case she did not actually have one. Tammy Sorensen DIGITAL ASSISTANT GUY
--- NOTE | 2024-09-03 11:56 | CASEMGMT ---
[facility] has accepted. Pt can admit when MR. Physician updated. Cassandra Church DC Planning Asst.
--- NOTE | 2024-09-03 12:16 | PCM.DC.SUM ---
Providers Date of Admission: 09/01/24 Date of Discharge: 09/03/24 Primary Care Physician: Dr. Hussein Swenson MD Reason For Visit: HYPERTENSIVE URGENCY & WORSENING CONFUSION Diagnosis Discharge Diagnosis (1) Altered level of consciousness: Status: Acute Code(s): R40.4 - Transient alteration of awareness (2) Hypertensive urgency: Status: Acute Code(s): I16.0 - Hypertensive urgency Plan 89-year-old female was admitted for prehospital stroke alert of increased left-sided facial droop and left-sided weakness, worse than her usual left-sided residual deficit. She also had difficulty in putting sentence and was hypotensive. # Confusion with possibility of MCI/mild dementia: Patient is being admitted in the PCU. She was discharged on 08/31 and her workup was negative for acute encephalopathy. Acute stroke was ruled out on 08/31 with MRI brain negative for acute intracranial abnormality. MRI brain was negative for acute intracranial abnormality. 2D echo with bubble contrast study and was negative for PFO. Normal left atrium. Patient was seen by teleneurologist, [facility]. The patient has chronic diplopia. As per the neurologist, some of her neurological symptoms may be from uncontrolled hypertension including double vision. U tox was negative. Serum alcohol negative. Serum ammonia normal. B12 338 normal. TSH 0.881. Fasting profile shows TC 222, LDL 119. Patient is back to her baseline therefore I do not see any indication of repeating the workup. 09/02: Yesterday had long talk about 16 minutes with the patient's granddaughter in law. She was trying to coerce to change from observation to inpatient citing the regions of forgetfulness, cannot take care of herself and other problem of elderly patient. I asked that I have no good reason for changing to inpatient and more than that, the closing department of the hospitalist changes the status of the patient. Advised to talk to utilization department. Today, patient said her granddaughter in law is not power of plodder operator for health and she is not active caregiver. Currently the patient not safe enough for discharge. 09/02: Patient got accepted to a senior living. Being discharged. Advised to avoid pramipexole and tramadol at the same time. #R leg pain due to degenerative arthritis of right knee - Patient reporting some right leg pain and reluctance to lift leg. In the morning she said she feels right leg weakness which is chronic. X-ray of right hip pelvis and knee x-ray reported severe arthrosis # History of paroxysmal atrial fibrillation -Presently in normal sinus rhythm -Coumadin stopped after intracranial hemorrhage 04/2024 # Restless leg syndrome -continue patient's home medication regimen Patient on pramipexole. Advised to avoid tramadol and pramipexole together. Tramadol dose frequency decreased to twice daily as needed. Hypertensive urgency: Blood pressure on admission was 191/65. Currently it is 154/75. Slowly titrate down the blood pressure with systolic blood pressure less than 140, appropriate for her age. 09/02: Yesterday patient was started on chlorthalidone 12.5 mg daily. Today blood pressure is still high therefore amlodipine 10 mg daily started. Does not want to put on full dose chlorthalidone 25 mg daily because of dehydration/hypovolemia and high risk of fall 09/03: Amlodipine was restarted yesterday. Blood pressure is much better in systolic 130s. Goal blood pressure will be between SBP 140-150, appropriate for her age. Avoid HCTZ below SBP 140 mmHg BP 140 mmHg as she is likely to get easily dehydrated and hyponatremic. Furosemide on her home medication discontinued. # CKD stage IIIb: Creatinine is normal range 0.94-1.06 but creatinine clearance elevated due to increased age. #NEL - Appears in history that she at least at some point was on CPAP, checking VBG, if able to verify patient is on CPAP can continue here patient is compliant or will place patient on BiPAP if hypercapnic #DVT ppx: SCDs Medications at Discharge Home Medications denosumab 60 mg/mL subcutaneous syringe (Prolia) 60 mg subcut [id number] osteoporosis 10/08/19 aspirin 81 mg chewable tablet 1 tab PO DAILY Heart health 05/16/24 acetaminophen 500 mg tablet 1,000 mg (2 x 500 mg) PO Q8 #0 tabs 07/20/24 losartan 100 mg tablet 100 mg PO DAILY #0 tabs 07/20/24 metoprolol tartrate 100 mg tablet 100 mg PO BID 30 days #60 tabs 07/20/24 ascorbic acid (vitamin C) 500 mg tablet (C-500) 500 mg PO DAILY supplement 08/30/24 cholecalciferol (vitamin D3) 25 mcg (1,000 unit) capsule 2,000 unit PO DAILY supplement 08/30/24 magnesium oxide 420 mg tablet 420 mg PO DAILY 08/30/24 pramipexole 1 mg tablet 3 mg (3 x 1 mg) PO QHS 30 days #90 tabs 08/31/24 rosuvastatin 20 mg tablet 20 mg PO QHS 1 month #30 tabs 08/31/24 amlodipine 10 mg tablet 10 mg PO DAILY #0 tabs 09/03/24 chlorthalidone 50 mg tablet 12.5 mg (1/4 x 50 mg) PO BREAKFAST #0 tabs 09/03/24 tramadol 50 mg tablet 50 mg PO BID PRN pain 7 days #28 tabs 09/03/24 Physical Exam Narrative Seen and examined. Blood pressure is controlled. She had bowel movement. Forgetfulness. Physical exam General: Alert, Oriented x3, Cooperative HEENT: Atraumatic, PERRLA, EOMI, Normocephalic. Has chronic diplopia sometimes. Oral: No Gingival or Mucosal Lesions/ Ulcerations Neck: Supple, No JVD, Negative Carotid Bruits Chest wall/Lungs: Air entry diminished in bilateral lung bases. No crepitation/rhonchi Cardiovascular: Regular rate, Regular Rhythm,No M/G/R Abdomen: Bowel Sounds Present, Soft, Non Tender, Non-Distended : No dysuria. No renal angle tenderness. No suprapubic tenderness. Extremities: No edema, Capillary Refill Less than 3 Seconds Skin: No rashes, No breakdown Musculoskeletal: No Tenderness to Palpation of Joints or Extremities. Degenerative arthritis of knees. Neurological: Cranial nerves II-XII grossly intact, DTR 2+/4. No acute focal neurological deficit. Psych/Mental Status: Flat affect. Mild forgetfulness. Weight / BMI Weight Weight: 163 lb 2.273 oz Body Mass Index (BMI) 28.0 ABG / Lab / Microbiology Data 09/03/24 04:52 09/03/24 04:52 Laboratory: Laboratory Results - last 24 hr 09/02/24 20:10: WBC 9.4, RBC 3.38 L, Hgb 10.0 L, Hct 31.2 L, MCV 92.3, MCH 29.6, MCHC 32.1, RDW Std Deviation 44.2 H, RDW Coeff of Tiffani 13.1, Plt Count 314, MPV 9.5, Immature Gran % (Auto) 0.300, Neut % (Auto) 68.3, Lymph % (Auto) 17.4 L, [place] % (Auto) 9.6, Eos % (Auto) 3.9, Baso % (Auto) 0.5, Absolute Neuts (auto) 6.4, Absolute Lymphs (auto) 1.63, Nucleated RBC % 0, Sodium 139, Potassium 3.9, Chloride 100, Carbon Dioxide 27.2, Anion Gap 11, BUN 23 H, Creatinine 0.82, Estim Creat Clear Calc 46.73 L, Est GFR (MDRD) Non-Af 69, BUN/Creatinine Ratio 28.3 H, Glucose 108 H, Calcium 9.8, Phosphorus 4.5, Magnesium 2.1, Total Bilirubin 0.27, AST 23, ALT 9, Alkaline Phosphatase 62, Total Protein 6.3, Albumin 3.6, Globulin 2.7, Albumin/Globulin Ratio 1.3 09/03/24 04:52: WBC 7.2, RBC 3.31 L, Hgb 9.7 L, Hct 30.7 L, MCV 92.7, MCH 29.3, MCHC 31.6 L, RDW Std Deviation 44.4 H, RDW Coeff of Tiffani 13.0, Plt Count 302, MPV 9.9, Immature Gran % (Auto) 0.400, Neut % (Auto) 60.4, Lymph % (Auto) 23.3, [place] % (Auto) 8.2, Eos % (Auto) 6.9 H, Baso % (Auto) 0.8, Absolute Neuts (auto) 4.3, Absolute Lymphs (auto) 1.68, Nucleated RBC % 0, Sodium 139, Potassium 3.2 L, Chloride 102, Carbon Dioxide 23.3, Anion Gap 14, BUN 20 H, Creatinine 0.78, Estim Creat Clear Calc 47.90 L, Est GFR (MDRD) Non-Af 73, BUN/Creatinine Ratio 26.1 H, Glucose 113 H, Calcium 9.5 D/C Instructions DC O2, CPAP, BIPAP Needs Home O2 Discharge instructions: No Meaningful Use Info Meaningful Use Meaningful Use Diagnoses (Choose all that apply): None applicable Ischemic Stroke Statin Dosing Therapy Reference: STATIN DOSE THERAPY REFERENCE: * Patients > 75 years receive moderate or high dose statin therapy. * Patients 75 years or YOUNGER should receive HIGH intensity statin dose unless contraindicated. You will be required to document reason for non-treatment if statin daily dose does not meet guidelines. HIGH DOSE STATIN THERAPY DAILY Atorvastatin > than or = to 40 mg Rosuvastatin > than or = to 20 mg Amlodipine + Atorvastatin > than or = to 2.5/40 mg Ezetimibe + Simvastatin 10/80 mg Simvastatin 80mg Discharge Plan Admission Admit Date/Time: 09/01/24 02:05 Primary Reason for Your Visit: Generalized weakness. Failure to thrive Attending Provider: Charles Sullivan Primary Care Provider: Hussein Swenson Consulting Providers: Juan José Suarez Discharge Orders/Prescriptions Prescriptions: New chlorthalidone 50 mg Tablet 12.5 mg PO BREAKFAST Qty: 0 0RF Rx Instructions: Hold for SBP less than 140 mmHg amlodipine 10 mg Tablet 10 mg PO DAILY Qty: 0 0RF Rx Instructions: Hold for SBP less than 130 mmHg Continued Prolia 60 mg/mL syringe 60 mg SC [id number] Patient Comments: due February Rx Instructions: due in february aspirin 81 mg tablet,chewable 1 tab PO DAILY metoprolol tartrate 100 mg Tablet 100 mg PO BID 30 Days Qty: 60 0RF acetaminophen 500 mg Tablet 1,000 mg PO Q8 Qty: 0 0RF losartan 100 mg Tablet 100 mg PO DAILY Qty: 0 0RF magnesium oxide 420 mg tablet 420 mg PO DAILY ascorbic acid (vitamin C) [C-500] 500 mg tablet 500 mg PO DAILY cholecalciferol (vitamin D3) 25 mcg (1,000 unit) capsule 2,000 unit PO DAILY pramipexole 1 mg Tablet 3 mg PO QHS 30 Days Qty: 90 0RF Rx Instructions: Pramipexole and tramadol might make drowsiness worse therefore try to avoid together rosuvastatin 20 mg tablet 20 mg PO QHS 30 Days Qty: 30 2RF Changed tramadol 50 mg Tablet 50 mg PO BID PRN (Reason: pain) 7 Days Qty: 28 0RF Rx Instructions: Avoid tramadol and pramipexole at the same time. Discontinued furosemide 40 mg Tablet 40 mg PO DAILY 30 Days Qty: 30 0RF Referrals / Follow Up: Hussein Swenson MD [Primary Care Provider] - Apolinar Holland MD [Non-Staff -Ordering Privileges] - Within 1 Month (History of ICH in the past) Disposition Disposition (needs filled in before D/C Order can be placed): Group Home Facility Charges/Coding Visit Charges Inpatient E&M: 97486 Disch Hosp >30min
[2024-09-03 12:18] VITALS: BP 134/45; PULSE 75; RESP 16; TEMP 36.6; O2SAT 96
--- NOTE | 2024-09-03 12:46 | CASEMGMT ---
Discharge Planning Discharge order, signed med list, and transport time sent to [facility]. Physicians will transport pt b wheelchair at 2:30-3p. Nursing, SW, pt, and her daughter (Janki) updated. Cassandra Church DC Planning Asst.
--- NOTE | 2024-09-03 12:49 | CASEMGMT ---
Discharge Planning [facility] notified that pt will admit to snf for short skilled stay. [facility] also notified that pt is active with [facility] for resumption of services at discharge. Cassandra Church DC Planning Asst.
--- NOTE | 2024-09-03 13:31 | CASEMGMT ---
SW completed a PASRR in [facility] system. Plan: d/c to [facility] under intermediate level of care on a PASRR as patient is observation status. Physicians will transport patient. Tammy TOVAR
--- NOTE | 2024-09-03 13:37 | NURSING ---
Report called to nurse Price for pt to be d/c to [facility].
--- NOTE | 2024-09-03 14:14 | PHA.DC_ITS ---
Pharmacy CT Med Reconciliation Pharmacy Service has performed discharge medication reconciliation for this patient upon transfer to [facility]. The patient's discharge medication list was reviewed for discrepancies and discrepancies were resolved. Medications at Discharge Home Medications denosumab 60 mg/mL subcutaneous syringe (Prolia) 60 mg subcut [id number] osteoporosis 10/08/19 aspirin 81 mg chewable tablet 1 tab PO DAILY Heart health 05/16/24 acetaminophen 500 mg tablet 1,000 mg (2 x 500 mg) PO Q8 #0 tabs 07/20/24 losartan 100 mg tablet 100 mg PO DAILY #0 tabs 07/20/24 metoprolol tartrate 100 mg tablet 100 mg PO BID 30 days #60 tabs 07/20/24 ascorbic acid (vitamin C) 500 mg tablet (C-500) 500 mg PO DAILY supplement 08/30/24 cholecalciferol (vitamin D3) 25 mcg (1,000 unit) capsule 2,000 unit PO DAILY supplement 08/30/24 magnesium oxide 420 mg tablet 420 mg PO DAILY 08/30/24 pramipexole 1 mg tablet 3 mg (3 x 1 mg) PO QHS 30 days #90 tabs 08/31/24 rosuvastatin 20 mg tablet 20 mg PO QHS 1 month #30 tabs 08/31/24 amlodipine 10 mg tablet 10 mg PO DAILY #0 tabs 09/03/24 chlorthalidone 50 mg tablet 12.5 mg (1/4 x 50 mg) PO BREAKFAST #0 tabs 09/03/24 tramadol 50 mg tablet 50 mg PO BID PRN pain 7 days #28 tabs 09/03/24
== END 2024-09-03 12:14 | disposition skilled nursing facility (03) ==
LOC: ED 09-01 01:30 → PCU 09-01 02:13
PROVIDERS: Admitting Provider Internal Medicine; Emergency Provider Emergency Medicine; PCP Family Medicine; Visit Provider Internal Medicine
DX: I16.0 Hypertensive urgency (principal); I69.341 Monoplegia of lower limb following cerebral infarction affecting right dominant side; J44.9 Chronic obstructive pulmonary disease, unspecified; I48.0 Paroxysmal atrial fibrillation; N18.32 Chronic kidney disease, stage 3b; R41.82 Altered mental status, unspecified; I12.9 Hypertensive chronic kidney disease with stage 1 through stage 4 chronic kidney disease, or unspecified chronic kidney disease; R53.81 Other malaise; R26.2 Difficulty in walking, not elsewhere classified; E78.5 Hyperlipidemia, unspecified; E66.811 Obesity, class 1; M17.11 Unilateral primary osteoarthritis, right knee; Z68.32 Body mass index [BMI] 32.0-32.9, adult; I68.0 Cerebral amyloid angiopathy; G25.81 Restless legs syndrome; E89.0 Postprocedural hypothyroidism; G47.33 Obstructive sleep apnea (adult) (pediatric); M81.0 Age-related osteoporosis without current pathological fracture; Z79.82 Long term (current) use of aspirin; Z79.899 Other long term (current) drug therapy
CPT/HCPCS: 36415; 80048; 80053; 80076; 80307; 81001; 82077; 82140; 83735; 84100; 85025; 92523; 92610; 96374; 96375; 96376; 97162; 97166; 97530; 97535; 97802; 99221; 99285; P9612; A4216; G0378

== ENCOUNTER → 2024-09-06 | Outpatient (REF) | payer MEDICARE, BC, SELFPAY ==
[2024-09-06 09:19] LABS: Absolute Lymphocyte Count 1.76 X10^3/uL (0.83-4.51); Absolute Neutrophil Count 3.8 X10^3/uL (2.0-7.7); Basophil# 0.07 X10^3/uL; Eosinophil# 0.35 X10^3/uL; Eosinophils% 5.2 % (0-5); Hematocrit 29.8 % (37-47); Hemoglobin 9.4 g/dL (12.0-15.0); Lymphocyte # 1.76 X10^3/ul (0.83-4.51); Lymphocyte % 26.3 % (19-41); Mean Corp Hgb Conc 31.5 g/dL (32-36); Mean Corpuscular Hgb 29.6 pg (27.0-32.0); Mean Corpuscular Volume 93.7 fL (81-99); Mean Platelet Vol. 10.1 fl (6.2-12.0); Monocyte# 0.71 X10^3/uL; Monocyte% 10.6 % (0-10); NRBC Flagged by Analyzer 0 % (0-5); Neutrophil # 3.78 X10^3/uL (2.7-7.7); Neutrophil % 56.5 % (47-70); Platelet Count 337 K/mm3 (150-450); RBC Distribution Width CV 12.9 % (11.6-14.6); RBC Distribution Width SD 44.5 fl (35.1-43.9); Red Blood Count 3.18 M/mm3 (4.2-5.4); White Blood Count 6.7 K/mm3 (4.4-11.0)
[2024-09-06 10:35] LABS: ALB/GLOB Ratio 1.3 RATIO (0.9-2.4); AST(SGOT) 19 U/L (<=31); Alanine Aminotransfer ALT/SGPT 11 U/L (<=34); Albumin, Serum 3.5 g/dL (3.4-4.8); Alkaline Phosphatase 60 U/L (35-104); Anion Gap 11 (5-15); BUN 33 mg/dL (4-19); BUN/Creat Ratio 40.3 RATIO (10-20); Chloride 101 mmol/L (98-108); Creatinine, Serum 0.83 mg/dL (0.70-1.20); EST Glomerular Filtration Rate 68 (>60); Globulin 2.7 g/dL (2.2-4.2); Glucose 88 mg/dL (70-99); Potassium 4.3 mmol/L (3.3-5.1); Protein, Total 6.1 g/dL (5.9-8.4); Sodium Level 137 mmol/L (133-145); Total Bilirubin 0.16 mg/dL (0.00-1.30)
== END ==
LOC: OLS.WHLTCC 04:00
PROVIDERS: PCP Family Medicine; Referring Provider Internal Medicine; Visit Provider Internal Medicine
DX: I12.9 Hypertensive chronic kidney disease with stage 1 through stage 4 chronic kidney disease, or unspecified chronic kidney disease (principal); I69.354 Hemiplegia and hemiparesis following cerebral infarction affecting left non-dominant side; M17.0 Bilateral primary osteoarthritis of knee; M62.561 Muscle wasting and atrophy, not elsewhere classified, right lower leg; N18.9 Chronic kidney disease, unspecified
CPT/HCPCS: 36415; 80053; 82306; 85025

== ENCOUNTER 2024-10-01 15:21 | Emergency (ER) | payer MEDICARE, BC, SELFPAY ==
[2024-10-01 15:22] VITALS: BP 175/46; PULSE 73; RESP 17; TEMP 36.8; O2SAT 99; BMI 27.2
--- NOTE | 2024-10-01 15:36 | EKG12_ITS ---
Test Reason : Blood Pressure : */* mmHG Vent. Rate : 76 BPM Atrial Rate : 76 BPM P-R Int : 148 ms QRS Dur : 120 ms QT Int : 412 ms P-R-T Axes : 6 -33 5 degrees QTcB Int : 463 ms Normal sinus rhythm Left axis deviation Right bundle branch block Minimal voltage criteria for LVH, may be normal variant ( R in aVL ) Septal infarct , age undetermined Abnormal ECG Confirmed by JAHAIRA URBAN, OTONIEL ([id number]), communications editor VANESA BURNETT ([id number]) on 10/05/2024 7:04:56 AM Referred By: Confirmed By: OTONIEL CAMPO MD
--- NOTE | 2024-10-01 15:43 | EX.ED.DYSGE1 ---
HPI History of Present Illness Chief Complaint: Back Informant: patient and EMS Narrative Narrative: 89-year-old female presenting to the emergency department via EMS with the complaint of leg pain. The patient states that she has chronic back pain and is in pain management and that back pain makes her legs hurt. With her legs hurting it makes her legs weak and she has a hard time moving around the home stating that she shuffles her feet. She states that her son's comes and takes her to appointments and picks up her medications for her. She states that she has home health care that comes into the home and helps her to shower care for herself. She states that she has pain for that. She tells me that home health arrived today and stated that she was speaking gibberish. They reportedly called and spoke with nursing who stated she needed a 3-day hospital stay for placement. Patient was recently admitted for stroke rule out and then readmitted for altered mental status and was reportedly transferred to rehab. Since then apparently she is back at the home. Patient states that she really does not want to be admitted because she cannot afford it. She denies any fevers. She states she has been drinking less water so she does not have to get up to the bathroom as much. She denies any recent falls in the past week. [facility] Medical History Aphasia History of hemorrhagic cerebrovascular accident (CVA) with residual deficit Daytime somnolence Elevated PTHrP level Venous insufficiency of both lower extremities Cerebral amyloid angiopathy Hypothyroidism Hyperlipidemia Essential (primary) hypertension Hypertension Lumbar compression fracture Closed compression fracture of L2 vertebra COPD (chronic obstructive pulmonary disease) Wrist fracture, right Shoulder fracture, left Iron deficiency anemia Osteoporosis Vitamin D deficiency Hiatal hernia Restless legs History of stress test HTN (hypertension) Scarlet fever Sleep apnea Pulmonary hypertension Secondary pulmonary arterial hypertension Paroxysmal atrial fibrillation Incomplete right bundle branch block Obstructive sleep apnea Obesity Essential (primary) hypertension Multiple fractures of ribs, left side, initial encounter for closed fracture Hypertensive emergency Pneumonia Limb weakness Difficulty balancing Thyroid disease Migraines Fatigue Arthritis Community acquired pneumonia Home Medications ?Medication ?Instructions ?Recorded ?Last Taken ?Type denosumab 60 mg/mL subcutaneous 60 mg subcut [id number] osteoporosis 10/08/19 08/24/21 History syringe (Prolia) aspirin 81 mg chewable tablet 1 tab PO DAILY Heart health 05/16/24 05/30/24 History acetaminophen 500 mg tablet 1,000 mg (2 x 500 mg) PO Q8 #0 tabs 07/20/24 Unknown Rx losartan 100 mg tablet 100 mg PO DAILY #0 tabs 07/20/24 Unknown Rx metoprolol tartrate 100 mg tablet 100 mg PO BID 30 days #60 tabs 07/20/24 Unknown Rx ascorbic acid (vitamin C) 500 mg 500 mg PO DAILY supplement 08/30/24 Unknown History tablet (C-500) cholecalciferol (vitamin D3) 25 2,000 unit PO DAILY supplement 08/30/24 Unknown History mcg (1,000 unit) capsule magnesium oxide 420 mg tablet 420 mg PO DAILY 08/30/24 Unknown History pramipexole 1 mg tablet 3 mg (3 x 1 mg) PO QHS 30 days #90 08/31/24 Unknown Rx tabs rosuvastatin 20 mg tablet 20 mg PO QHS 1 month #30 tabs 08/31/24 Unknown Rx amlodipine 10 mg tablet 10 mg PO DAILY #0 tabs 09/03/24 Unknown Rx chlorthalidone 50 mg tablet 12.5 mg (1/4 x 50 mg) PO BREAKFAST 09/03/24 Unknown Rx #0 tabs nitrofurantoin 100 mg PO Q12H 5 days #10 caps 10/01/24 Unknown Rx monohydrate/macrocrystals 100 mg capsule (Macrobid) Allergy/AdvReac Type Severity Reaction Status Date / Time cefazolin (From Ancef) Allergy Severe Swelling Verified 08/31/24 20:54 silk Allergy Intermediate itching Verified 08/31/24 20:54 duloxetine (From Cymbalta) Allergy Unknown Hives Verified 08/31/24 20:54 shellfish derived Allergy Unknown Other Verified 08/31/24 20:54 beet (Beet) Allergy Hives Verified 08/31/24 20:54 cantaloupe Allergy Food Verified 08/31/24 20:54 Allergy eggplant Allergy Hives Verified 08/31/24 20:54 Food Allergies: Uncoded Allergy Itching Verified 08/31/24 20:54 levofloxacin (From Levaquin) Allergy Unknown Verified 08/31/24 20:54 mold Allergy NEEDS Verified 08/31/24 20:54 FOLLOW-UP Penicillins Allergy Unknown Verified 08/31/24 20:54 tomato Allergy Food Verified 08/31/24 20:54 Allergy wheat Allergy Hives Verified 08/31/24 20:54 gabapentin (From Neurontin) AdvReac Other Verified 08/31/24 20:54 meloxicam (From Mobic) AdvReac Other Verified 08/31/24 20:54 oxycodone (From OxyIR) AdvReac Nausea Verified 08/31/24 20:54 risedronate sodium (From AdvReac Other Verified 08/31/24 20:54 Actonel) Family History Other Cancer Diabetes Heart disease Surgical History H/O radiofrequency ablation (RFA) of nerve of lumbar spine History of kyphoplasty Hx of tonsillectomy H/O partial thyroidectomy History of appendectomy History of cholecystectomy Hx of bilateral cataract extraction History of thyroid surgery Hx of appendectomy History of tonsillectomy Hx of cholecystectomy History of thymectomy History of parathyroidectomy Social History adopted: No household members: none housing: [facility] number of children: 2 current occupational status: retired current occupational exposures/hazards: No pets and animals: No leisure activities: reading and other history of recent travel: Yes ([employer] in [place]) Smoking Status: Never smoker alcohol intake: never substance use type: does not use caffeine: No ROS ROS ED Constitutional Constitutional ED: Denies chills, fever(s) or weight loss Eyes Eyes: Reports diplopia and other Details: Reported chronic diplopia ; Denies change in vision ENT ENT ED: Denies ear pain, rhinorrhea or sore throat Cardiovascular Cardiovascular: Denies chest pain, orthopnea, palpitations or racing heartbeat Respiratory/Chest Respiratory/Chest: Denies cough, dyspnea or orthopnea Gastrointestinal Gastrointestinal: Denies abdominal pain, diarrhea, nausea or vomiting Genitourinary Genitourinary ED: Denies dysuria, hematuria or urinary frequency Musculoskeletal Musculoskeletal: Reports back pain and other Details: Bilateral leg weakness ; Denies arthralgias or myalgias Integumentary Denies abscess or rash Neurologic Neurologic: Reports other Details: Home health reports speaking gibberish patient does not know what they are talking about. ; Denies headache(s), paresthesias or weakness Psychiatric Psychiatric: Denies anxiety, depression, suicidal ideation or suicidal thoughts Endocrine Endocrinology: Denies polydipsia, polyphagia or polyuria Allergic/Immunologic Allergic/Immunologic ED: Denies mouth swelling, tongue swelling or urticaria EXAM Physical Exam Const Vital Signs: 10/01/24 15:22 10/01/24 17:00 10/01/24 18:00 Temperature 98.2 F Temperature Source Oral Pulse Rate 73 81 88 Respiratory Rate 17 17 17 Blood Pressure 175/46 H 149/44 H 160/65 H Blood Pressure Mean 89 79 96 Pulse Ox 99 98 96 Oxygen Delivery Method Room Air Positive well nourished and well developed General Appearance ED: well developed and NAD HEENT Reports normocephalic, head/scalp atraumatic and moist mucous membranes Eyes PERRL and EOMs intact bilaterally Neck no lymphadenopathy, supple and no JVD Resp normal respiratory effort and clear to auscultation bilaterally Cardio regular rate, regular rhythm and no murmurs GI normal to inspection, nondistended, normoactive bowel sounds and non-tender Palpation: soft Back/Spine no CVA tenderness and normal ROM Extremity normal to inspection General Extremety ED: Negative for edema General Extremity: Negative for edema Neuro oriented x3 and CN's II-XII intact bilaterally Sensorium / Orientation: alert Motor Exam: strength 5/5 throughout Psych Psych Narrative: No SI or HI endorsed by patient Mood & Affect: depressed and tearful Skin no rashes or lesions noted and no wounds MDM MDM MDM Narrative Medical decision making narrative: Differential diagnosis includes but not limited to acute on chronic back pain radiculopathy electrolyte abnormalities dehydration UTI pyelonephritis depression White count 9.5 hemoglobin 11.3 platelet count of 374. Glucose 116 creatinine 1.17 with a BUN of 34 normal sodium and potassium liver panel within normal limits urinalysis 10-25 white cells 2+ bacteria leukocyte Estrace at 100 negative nitrates. This will be sent for culture. I had the patient visit with social work. She apparently has been on Cymbalta but got hives from that and has not revisited any other antidepressive medicines with her doctor. I think this would be a good idea for her. We can give her resources for counseling. I do feel that her depression is significantly affecting her overall health care as does the patient and reportedly does the home health nurse. She is able to ambulate here in the department without any difficulty though slowly. Patient does not wish to be admitted. I do not see a strong reason to admit her at this current time. Would encourage PCP follow-up. History & Record Review Discussion w/independent historian: Patient and Family Additional record(s) reviewed:: Prior inpatient record, Prior ED visit and Prior labs Lab Data Attestation: I reviewed the patient's lab results. Labs: Laboratory Results - last 24 hr 10/01/24 10/01/24 16:41 17:10 WBC 9.5 RBC 3.96 L Hgb 11.3 L Hct 36.1 L MCV 91.2 MCH 28.5 MCHC 31.3 L RDW Std Deviation 44.9 H RDW Coeff of Tiffani 13.3 Plt Count 374 MPV 9.1 Immature Gran % (Auto) 0.800 Neut % (Auto) 79.8 H Lymph % (Auto) 10.9 L Camp % (Auto) 6.0 Eos % (Auto) 1.9 Baso % (Auto) 0.6 Absolute Neuts (auto) 7.6 Absolute Lymphs (auto) 1.04 Nucleated RBC % 0 Sodium 133 Potassium 4.3 Chloride 92 L Carbon Dioxide 28.3 Anion Gap 12 BUN 34 H Creatinine 1.17 Estim Creat Clear Calc 32.33 L Est GFR (MDRD) Non-Af 45 L BUN/Creatinine Ratio 28.7 H Glucose 116 H Calcium 9.0 Total Bilirubin 0.42 Direct Bilirubin 0.23 AST 23 ALT 9 Alkaline Phosphatase 96 Total Protein 7.1 Albumin 4.1 Globulin 3.0 Urine Color Yellow Urine Clarity Cloudy Urine pH 6.0 Ur Specific [place] 1.010 Urine Protein 100 H Urine Glucose (UA) Normal Urine Ketones Negative Urine Occult Blood 25 H Urine Nitrite Negative Urine Bilirubin Negative Urine Urobilinogen Normal Ur Leukocyte Esterase 100 H Urine RBC 0-5 SEEN Urine WBC 10-25 SEEN Ur Squamous Epith Cells 0 SEEN Amorphous Sediment 2+ Urine Bacteria 1+ Urine Mucus 0 SEEN Radiography Diagnostic Testing: Clinical Impression(s) from Imaging Studies Chest X-Ray 10/01/24 16:40 IMPRESSION: Slightly limited exam due to patient positioning, without definite evidence of an acute cardiopulmonary abnormality. Reading Location: [id number] EKG Initial EKG: Attestation: I personally reviewed and interpreted this EKG as follows: Comments: NSR @76 bpm RBBB Discharge Plan Triage Chief Complaint: Back ED Provider: Martin Hinton Dx/Rx/DC Orders Clinical Impression: Chronic back pain, Acute UTI, Depression Instructions: UTIs, ED Depression Prescriptions: New nitrofurantoin monohyd/m-cryst [Macrobid] 100 mg capsule 100 mg PO Q12H 5 Days Qty: 10 0RF Rx Instructions: must administer with a meal/food No Action Prolia 60 mg/mL syringe 60 mg SC [id number] Patient Comments: due February Rx Instructions: due in february aspirin 81 mg tablet,chewable 1 tab PO DAILY metoprolol tartrate 100 mg Tablet 100 mg PO BID 30 Days Qty: 60 0RF acetaminophen 500 mg Tablet 1,000 mg PO Q8 Qty: 0 0RF losartan 100 mg Tablet 100 mg PO DAILY Qty: 0 0RF magnesium oxide 420 mg tablet 420 mg PO DAILY ascorbic acid (vitamin C) [C-500] 500 mg tablet 500 mg PO DAILY cholecalciferol (vitamin D3) 25 mcg (1,000 unit) capsule 2,000 unit PO DAILY pramipexole 1 mg Tablet 3 mg PO QHS 30 Days Qty: 90 0RF Rx Instructions: Pramipexole and tramadol might make drowsiness worse therefore try to avoid together rosuvastatin 20 mg tablet 20 mg PO QHS 30 Days Qty: 30 2RF chlorthalidone 50 mg Tablet 12.5 mg PO BREAKFAST Qty: 0 0RF Rx Instructions: Hold for SBP less than 140 mmHg amlodipine 10 mg Tablet 10 mg PO DAILY Qty: 0 0RF Rx Instructions: Hold for SBP less than 130 mmHg Primary Care Provider: Hussein Swenson Referrals: Hussein Swenson MD [Primary Care Provider] - 3-5 Days Print Language: French Disposition Disposition: Home, Self Care NIHSS NIHSS 1a. Level of Consciousness: 0 - Alert; keenly responsive 1b. LOC Questions: 0 - Answers BOTH questions correctly 1c. LOC Commands: 0 - Performs BOTH tasks correctly 2. Best Gaze: 1 - Partial gaze palsy; 3. Visual: 0 - No visual loss 4. Facial Palsy: 0 - Normal symmetrical movements 5a. Left Arm: 0 - No drift; arm holds 90 (or 45) degrees for full 10 seconds 5b. Right Arm: 0 - No drift; arm holds 90 (or 45) degrees for full 10 seconds 6a. Left Le - No drift; leg holds 30-degree position for full 5 seconds 6b. Right Le - No drift; leg holds 30-degree position for full 5 seconds 7. Limb Ataxia: 0 - Absent 8. Sensory: 0 - Normal; no sensory loss 9. Best Language: 0 - No aphasia; normal 10. Dysarthria: 0 - Normal 11. Extinction and Inattention: 0 - No abnormality Total: 1
--- NOTE | 2024-10-01 16:40 | RAD_ITS ---
PROCEDURE: CHEST 1 VIEW (PORTABLE) 10/01/2024 REASON FOR EXAM: HYPERTENSION TECHNIQUE: Frontal view of the chest. COMPARISON: Chest radiograph 08/30/2024, CT chest on 06/26/2024 FINDINGS: Patient rotation limits this exam. Hardware: None Heart: Heart size is enlarged. Lungs: No new focal consolidation. Nodular opacity measuring 7 mm at the right lung base, in keeping with calcified granuloma seen on prior CT. No significant pleural effusion. Bones: Degenerative changes are identified within the thoracic spine. Vertebroplasty changes at T12. Healed deformities of several left-sided ribs. Surgical clips in the right upper quadrant of the abdomen. RAD/Chest 1 View (Portable) IMPRESSION: Slightly limited exam due to patient positioning, without definite evidence of an acute cardiopulmonary abnormality. Reading Location: [id number]
[2024-10-01 16:52] LABS: Absolute Lymphocyte Count 1.04 X10^3/uL (0.83-4.51); Absolute Neutrophil Count 7.6 X10^3/uL (2.0-7.7); Basophil# 0.06 X10^3/uL; Basophil% 0.6 % (0-1); Eosinophil# 0.18 X10^3/uL; Eosinophils% 1.9 % (0-5); Hematocrit 36.1 % (37-47); Hemoglobin 11.3 g/dL (12.0-15.0); Lymphocyte # 1.04 X10^3/ul (0.83-4.51); Lymphocyte % 10.9 % (19-41); Mean Corp Hgb Conc 31.3 g/dL (32-36); Mean Corpuscular Hgb 28.5 pg (27.0-32.0); Mean Corpuscular Volume 91.2 fL (81-99); Mean Platelet Vol. 9.1 fl (6.2-12.0); Monocyte# 0.57 X10^3/uL; NRBC Flagged by Analyzer 0 % (0-5); Neutrophil # 7.57 X10^3/uL (2.7-7.7); Neutrophil % 79.8 % (47-70); Platelet Count 374 K/mm3 (150-450); RBC Distribution Width CV 13.3 % (11.6-14.6); RBC Distribution Width SD 44.9 fl (35.1-43.9); Red Blood Count 3.96 M/mm3 (4.2-5.4); White Blood Count 9.5 K/mm3 (4.4-11.0)
[2024-10-01 17:00] VITALS: BP 149/44; PULSE 81; RESP 17; O2SAT 98
[2024-10-01 17:13] LABS: Mucous, Urine 0 SEEN /hpf (<or=2+); Squamous Epithelial Cells - UA 0 SEEN /hpf (5-10)
[2024-10-01 17:23] LABS: AST(SGOT) 23 U/L (<=31); Alanine Aminotransfer ALT/SGPT 9 U/L (<=34); Albumin, Serum 4.1 g/dL (3.4-4.8); Alkaline Phosphatase 96 U/L (35-104); Anion Gap 12 (5-15); BUN 34 mg/dL (4-19); BUN/Creat Ratio 28.7 RATIO (10-20); Bilirubin, Direct 0.23 mg/dL (0.00-0.30); Carbon Dioxide 28.3 mmol/L (21.0-32.0); Chloride 92 mmol/L (98-108); Creatinine, Serum 1.17 mg/dL (0.70-1.20); EST Glomerular Filtration Rate 45 (>60); Estimated Creatinine Clearance 32.33 ml/min (50-250); Glucose 116 mg/dL (70-99); Potassium 4.3 mmol/L (3.3-5.1); Protein, Total 7.1 g/dL (5.9-8.4); Sodium Level 133 mmol/L (133-145); Total Bilirubin 0.42 mg/dL (0.00-1.30)
[2024-10-01 17:29] LABS: Color, Urine Yellow (Yellow); Glucose, Dipstick Normal (Normal); Ketone-Dipstick Negative (Negative); Leukocyte Esterase-Dipstick 100 /ul (Negative); Nitrite-Dipstick Negative (Negative); Occult Blood-Urine 25 /ul (Negative); Protein-Dipstick 100 mg/dl (Negative); Urine Bilirubin Dipstick Negative (Negative); Urine Clarity Cloudy (Clear); Urine Urobilinogen Normal (Normal)
[2024-10-01 18:00] VITALS: BP 160/65; PULSE 88; RESP 17; O2SAT 96
--- NOTE | 2024-10-01 18:30 | CM.ED ---
Social work Akila PRICE approached this SW prior to patient's presentation to [facility] ED stating just receiving a call from [facility] who reportedly stated patient would be needing a 3 day qualifying stay for SNF because [facility] was not working out and patient needed a higher level of care. Patient presented to [facility] ED and was assessed by Dr. Hinton to rule out medical reasons for admission. Dr. Hinton informed this SW that patient's tests were clear and SW was asked to speak with patient. Per Dr. Hinton, patient has chronic back pain which causes patient's legs to hurt and go weak; patient is involved in pain management with Dr. Hunter. SW entered patient's room, introducing self and role at [facility]. Patient welcomed SW visit and stated immediately that patient wanted to return home. Patient stated having [facility] with nursing, PT, OT, and SW for a total of 3 times per week. Patient stated also having [facility] 2 times per week to help with cleaning, laundry, etc. Patient shared that patient's son's , Maia Baptiste, also helps with picking up patient's medications and bringing meals. Patient's daughter, Akin Moralez, reportedly helps in these ways as well, but cannot drive for another week due to having surgery. Patient's grandchildren, Rogelio and Danita Gotti, reportedly call often and help with patient's trash, picking things up from the store, etc. Patient stated also having family in [place], [place] that help when they are able; patient stated ability to call patient's family when patient needs and patient expressed that patient is not shy to call them. Patient stated financial concerns with being admitted, though patient stated this was not patient's main reasoning for wanting to return home. SW asked patient about depression and patient stated of course, wouldn't you be? Patient stated Dr. Swenson, patient's PCP, had prescribed patient Cymbalta, but it gave patient hives and patient does not want to start another medication for fear of the same issue occurring. SW encouraged patient to have a conversation with Dr. Swenson about medication. Of note, patient stated patient's on (this coming Friday), so weekend is rough. Patient stated not having much of an appetite lately though stated having plenty of food available from relatives. Patient stated sleep was good due to pain medication helping patient sleep through the night. Patient denied having any suicidal thoughts or losing interest in doing things patient enjoys. SW called patient's daughter, Akin (ph: [phone]), and asked if Akin had thoughts on patient's physical abilities. Akin stated knowing that patient was sent to [facility] ED today as Akin received a call from [facility], specifically stating, patient reportedly was in excruciating pain and words were all jumbled. Akin stated knowing patient's pain was chronic and knowing patient's pain has been especially bad the last two days. Akin stated patient went to Dr. Hunter yesterday and knowing patient has an ablation scheduled for patient's back pain. Akin did state not seeing patient since Friday (09/26/24) due to Akin having surgery on this past Friday09/28/24, but reportedly hearing that patient has not been able to walk without stopping and patient has had difficulty getting out of vehicles more often lately. Patient was oriented to time, place, and person while speaking with SW. Patient spoke clearly and stated being upset with having to come to [facility] ED today because patient felt as if it was not necessary. Patient stated desire to return home at multiple points during conversation. Patient stated believing patient was safe to go home, especially due to having family supports as well as [facility] and aide supports. Patient reports feeling comfortable returning home even with it being a longer holiday weekend due to having family support available. Dr. Hinton updated. Per Dr. Hinton, patient ambulated well in the ED and patient is A+Ox3. Patient medical results still pending at this time. Alka Jolley, [employer], TELECOMMUNICATIONS SUPPORT
[2024-10-01 19:00] VITALS: PULSE 84; RESP 18; O2SAT 98
[2024-10-01 19:09] LABS: Red Blood Cells-Urine 0-5 SEEN /hpf (0-5); White Blood Cells 10-25 SEEN /hpf (0-5)
[2024-10-01 19:10] LABS: Amorphous Sediment 2+; Bacteria 1+ /hpf (None Seen)
--- NOTE | 2024-10-01 19:13 | CM.ED ---
Social work Of note, patient accepted SW placing a [facility] referral; this SW completed online referral form. Patient denied needing further resources due to having them all already. Alka Jolley, CP BLEACHER OPERATOR, FRUIT THINNER
[2024-10-01 20:11] VITALS: PULSE 86; RESP 20; TEMP 36.8; O2SAT 97
--- NOTE | 2024-10-01 20:14 | ED.RN ---
Pt's family member concerned that pt is up for d/c and wants her admitted. Also complained DR did not speak to pt about test results. This RN explained that pt has been ambulatory with walker during visit and that lab work only revealed a UTI, which is not hospital admission criteria. This RN offered to have round on pt and family to provide updates, family member denied. This RN suggested potential for rehab or skill nursing facility for pt if family is concerned for her safety living alone, family member also denied this suggestion. This RN provided pt with a wheel chair at discharge and assisted pt into car.
== END 2024-10-01 20:13 | disposition home or self-care (01) ==
PROVIDERS: Emergency Provider Emergency Medicine; PCP Family Medicine; Visit Provider Emergency Medicine
DX: M54.9 Dorsalgia, unspecified (principal); J44.9 Chronic obstructive pulmonary disease, unspecified; N39.0 Urinary tract infection, site not specified; G89.29 Other chronic pain; F32.A Depression, unspecified; I69.80 Unspecified sequelae of other cerebrovascular disease; M79.606 Pain in leg, unspecified; I10 Essential (primary) hypertension; E78.5 Hyperlipidemia, unspecified; E03.9 Hypothyroidism, unspecified; Z79.82 Long term (current) use of aspirin; Z79.899 Other long term (current) drug therapy
CPT/HCPCS: 71045; 80048; 80076; 81001; 85025; 87077; 87086; 87088; 93005; 99284; A4216

== ENCOUNTER 2024-10-03 17:43 | Inpatient (IN) | payer MEDICARE, BC, SELFPAY ==
[2024-10-03 17:44] VITALS: BP 179/63; PULSE 18; RESP 16; TEMP 36.9; O2SAT 99
[2024-10-03 19:05] VITALS: BMI 26.6
--- NOTE | 2024-10-03 19:17 | EKG12_ITS ---
Test Reason : WEAKNESS Blood Pressure : */* mmHG Vent. Rate : 88 BPM Atrial Rate : 88 BPM P-R Int : 182 ms QRS Dur : 118 ms QT Int : 396 ms P-R-T Axes : 41 -28 32 degrees QTcB Int : 479 ms Normal sinus rhythm Right bundle branch block Minimal voltage criteria for LVH, may be normal variant ( R in aVL ) Poor R-wave progression Abnormal ECG When compared with ECG of 01-Oct-2024 15:50, MANUAL COMPARISON REQUIRED DATA IS UNCONFIRMED Confirmed by Chris Concepcion ([id number]), associate editor VANESA BURNETT ([id number]) on 10/12/2024 10:05:14 AM Referred By: Confirmed By: Chris Concepcion
--- NOTE | 2024-10-03 19:44 | CT_ITS ---
PROCEDURE: CHEST WITHOUT CONTRAST N/A REASON FOR EXAM: FALL ,TRAUMA, RIGHT RIB PAIN TECHNIQUE: Chest CT without contrast. Coronal and Sagittal reconstruction series were provided. One or more dose reduction techniques were used (e.g., Automated exposure control, adjustment of the mA and/or kV according to patient size, use of iterative reconstruction technique. RADIATION DOSE SUMMARY: See same day CT head for discussion of radiation values. COMPARISON: CT chest 06/26/2024. FINDINGS: Hardware: None. Lymph nodes: Visualization is limited without the use of IV contrast. No large thoracic lymphadenopathy. Heart and Vasculature: Mild cardiomegaly without pericardial effusion. Severe coronary artery, thoracic aortic and mild aortic valvular calcifications. The great vessels are normal in caliber. Lungs and Airways: Visualization is limited by motion artifact. The central airways are grossly patent. Unchanged emphysema with bibasilar atelectasis/scarring. No large pulmonary mass. No pleural effusion or pneumothorax. Upper Abdomen: Moderate-sized hiatal hernia. Calcific plaque of the abdominal aorta. Prior cholecystectomy. Bones: Thoracic spondylosis. Chronic left rib fracture deformities and chronic left humeral head fracture deformity. CT/Chest without Contrast IMPRESSION: 1. No acute thoracic finding. 2. Chronic findings as described. Reading Location: [id number]
--- NOTE | 2024-10-03 19:44 | CT_ITS ---
PROCEDURE: SPINE CERVICAL WITHOUT CONTRAS N/A REASON FOR EXAM: FALL, TRAUMA TECHNIQUE: Cervical spine CT without contrast. Coronal and Sagittal reconstruction series were provided. One or more dose reduction techniques were used (e.g., Automated exposure control, adjustment of the mA and/or kV according to patient size, use of iterative reconstruction technique RADIATION DOSE SUMMARY: See same day CT head for radiation values. COMPARISON: CT C-spine 06/26/2024. FINDINGS: Alignment: No traumatic listhesis. Vertebrae: No acute fracture. The vertebral body heights are maintained. Multilevel degenerative disc disease and facet hypertrophy resulting in severe left neural foraminal stenosis at C5-6. Soft Tissues: No prevertebral hematoma. Calcific plaque of the bilateral carotid arteries. Heterogeneous left thyroid gland. CT/Spine Cervical without Contras IMPRESSION: NO ACUTE CERVICAL FRACTURE. DEGENERATIVE CHANGES. Reading Location: [id number]
--- NOTE | 2024-10-03 19:45 | CT_ITS ---
EXAM: BRAIN/HEAD WITHOUT CONTRAST CLINICAL HISTORY: 89 y/o F with FALL, AMS. COMPARISON: MRI brain 08/31/2024. TECHNIQUE: Routine CT imaging of the head without IV contrast. Additional multiplanar reformats were obtained. Dose reduction techniques were used including intermediate exposure control (AEC),iterative reconstruction technique, and/or mA and/or KV dose adjustments based on patient's size. FINDINGS: The ventricles, sulci and cisterns are prominent, suggestive of brain parenchymal volume loss. There is no evidence of intracranial hemorrhage. There is no midline shift, mass effect, or extra-axial collection. Moderate patchy supratentorial white matter hypodensities. Small, chronic infarct of the right parietal lobe. The keane-white matter interfaces are otherwise maintained. Prior ocular lens replacements. The visualized paranasal sinuses and mastoids are unremarkable. No acute calvarial fracture or scalp hematoma. CT/Brain/Head without Contrast IMPRESSION: No acute intracranial finding. Reading Location: [id number]
[2024-10-03 20:30] VITALS: BP 114/93; PULSE 93; RESP 16; O2SAT 99
[2024-10-03 20:30] LABS: Absolute Lymphocyte Count 0.99 X10^3/uL (0.83-4.51); Absolute Neutrophil Count 8.2 X10^3/uL (2.0-7.7); Basophil# 0.03 X10^3/uL; Basophil% 0.3 % (0-1); Eosinophil# 0.01 X10^3/uL; Eosinophils% 0.1 % (0-5); Hematocrit 32.2 % (37-47); Hemoglobin 10.4 g/dL (12.0-15.0); Lymphocyte # 0.99 X10^3/ul (0.83-4.51); Lymphocyte % 9.6 % (19-41); Mean Corp Hgb Conc 32.3 g/dL (32-36); Mean Corpuscular Hgb 29.4 pg (27.0-32.0); Mean Platelet Vol. 9.2 fl (6.2-12.0); Monocyte# 1.01 X10^3/uL; Monocyte% 9.8 % (0-10); NRBC Flagged by Analyzer 0 % (0-5); Neutrophil # 8.18 X10^3/uL (2.7-7.7); Neutrophil % 79.6 % (47-70); Platelet Count 368 K/mm3 (150-450); RBC Distribution Width CV 13.3 % (11.6-14.6); RBC Distribution Width SD 44.4 fl (35.1-43.9); Red Blood Count 3.54 M/mm3 (4.2-5.4); White Blood Count 10.3 K/mm3 (4.4-11.0)
[2024-10-03 20:35] LABS: Mucous, Urine 0 SEEN /hpf (<or=2+); Squamous Epithelial Cells - UA 0 SEEN /hpf (5-10)
[2024-10-03 20:45] LABS: Anion Gap 11 (5-15); BUN 35 mg/dL (4-19); BUN/Creat Ratio 33.3 RATIO (10-20); Calcium,Total 8.4 mg/dL (7.6-11.0); Carbon Dioxide 28.4 mmol/L (21.0-32.0); Chloride 96 mmol/L (98-108); Creatinine, Serum 1.04 mg/dL (0.70-1.20); EST Glomerular Filtration Rate 52 (>60); Estimated Creatinine Clearance 35.97 ml/min (50-250); Glucose 121 mg/dL (70-99); Potassium 4.2 mmol/L (3.3-5.1); Sodium Level 134 mmol/L (133-145)
[2024-10-03 20:47] LABS: Color, Urine Straw (Yellow); Glucose, Dipstick Normal (Normal); Ketone-Dipstick Negative (Negative); Leukocyte Esterase-Dipstick Negative /ul (Negative); Nitrite-Dipstick Negative (Negative); Occult Blood-Urine 25 /ul (Negative); Protein-Dipstick 30 mg/dl (Negative); Urine Bilirubin Dipstick Negative (Negative); Urine Clarity Clear (Clear); Urine Urobilinogen Normal (Normal); Urine pH 6.5 (5.0 - 8.0)
[2024-10-03 21:03] LABS: Bacteria 2+ /hpf (None Seen); Red Blood Cells-Urine 0-5 SEEN /hpf (0-5); White Blood Cells 0-5 SEEN /hpf (0-5)
--- NOTE | 2024-10-03 21:05 | CM.ED ---
Social Work Date of referral: 10/03/24 Reason for referral: Discharge planning Referred by: ED Doctor Prior to [employer] meeting with patient, patient's daughter Janki and patient's grandson, Rogelio requested to speak with social services analyst alone which social services analyst was agreeable to. Patient's daughter stated she is concerned about patient living alone and feels that patient would be safest in a SNF. Janki stated her mother started to present with increased falls, confusion, delusions and hallucinations beginning around July of this year and symptoms appear to be worsening. Janki reported that she feels as though patient is also getting confused with her medication because when Janki went out on this date to check on patient around 2pm, patient has already taken all of her bedtime medication. Patient also has not started taking the antibiotic she was prescribed after her recent visit to the ED on Friday. Janki reported she's walked in on patient having full-blown conversations with patient's sister, Davis who wasn't anywhere around, has talked about being examined while she was on a rope, stated patient hasn't been eating or drinking. Patient does have HHC at this time where she is receiving PT and OT and also has nursing come out (no one knows how often but this is through [facility]). Patient lives alone in a condo, has a standard walker, rollator, transfer wheelchair, hospital bed, 4 grab bars in the shower, a RTS, lift chair, HHS, BiPAP, and an Emergency Response Device (without fall detection which social recommended switching to). Patient was recently at [facility] and was discharged on 09/09/24. Case management on acute floor to follow up for discharge planning. Jaja Bob, RECORDING STUDIO INTERN, PREPARER [employer]ES [employer]IRS
--- NOTE | 2024-10-03 21:28 | RAD_ITS ---
PROCEDURE: HIP, UNI W/ PELVIS 2-3 VIEWS 10/03/2024 REASON FOR EXAM: PAIN, FALL TECHNIQUE: Two views of the left hip with AP pelvis. COMPARISON: Hip radiographs 08/30/2024. FINDINGS: Bones: No acute fracture. No aggressive osseous lesions. Joints: Stable severe right hip arthrosis. Additional moderate degenerative changes throughout the pelvis. Soft tissues: Soft tissues are unremarkable. Other: The visualized bowel loops are normal caliber. RAD/HIP, UNI W/ Pelvis 2-3 Views IMPRESSION: DEGENERATIVE OSTEOARTHROSIS. NO ACUTE FINDINGS. Reading Location: [id number]
--- NOTE | 2024-10-03 21:37 | EDS_ITS ---
HPI History of Present Illness Chief Complaint: Weakness Informant: patient Narrative Narrative: Patient is 89-year-old female with history of NEL on CPAP, hemorrhagic stroke, hypertension, proximal atrial fibrillation presenting for fall today, increased delirium and weakness. Patient was actually seen in our ER 2 days ago for confusion. Family was concerned about her ability to live at home alone and patient was apparently speaking gibberish when [facility] arrived. She had recently been in at [facility] but apparently could not afford it. She did have a urinalysis that was concerning for infection and patient was prescribed Macrobid. Family reports that they do not think patient started her antibiotics as they are still all of the pills in the container. They state that she has been taking her medications inappropriately at home. She has been seeing things such as people that do not talk to her. She states she has been hearing things like a loud noise but is a hard time describing this. She had a fall today. Patient states she fell this morning and states her leg buckled. Squad came because patient cannot get herself up but she refused transportation at this time. She has noted to have bruising to her back and is having increased pain of her right flank today. Patient states she did not hit her head. She denies any associated nausea or vomiting. Denies any chest pain. Patient denies any urinary symptoms. She states she feels a little constipated. Family states that they will see her talking to herself and has been occurring with increased frequency since April but is gotten much worse lately. They are concerned about her ability to live home alone and feel that she is significantly worsened over the past few days. [facility] Medical History Aphasia History of hemorrhagic cerebrovascular accident (CVA) with residual deficit Daytime somnolence Elevated PTHrP level Venous insufficiency of both lower extremities Cerebral amyloid angiopathy Hypothyroidism Hyperlipidemia Essential (primary) hypertension Hypertension Lumbar compression fracture Closed compression fracture of L2 vertebra COPD (chronic obstructive pulmonary disease) Wrist fracture, right Shoulder fracture, left Iron deficiency anemia Osteoporosis Vitamin D deficiency Hiatal hernia Restless legs History of stress test HTN (hypertension) Scarlet fever Sleep apnea Pulmonary hypertension Secondary pulmonary arterial hypertension Paroxysmal atrial fibrillation Incomplete right bundle branch block Obstructive sleep apnea Obesity Essential (primary) hypertension Multiple fractures of ribs, left side, initial encounter for closed fracture Hypertensive emergency Pneumonia Limb weakness Difficulty balancing Thyroid disease Migraines Fatigue Arthritis Community acquired pneumonia Home Medications ?Medication ?Instructions ?Recorded ?Last Taken ?Type denosumab 60 mg/mL subcutaneous 60 mg subcut [id number] osteoporosis 10/08/19 08/24/21 History syringe (Prolia) aspirin 81 mg chewable tablet 1 tab PO DAILY [facility] 05/16/24 05/30/24 History acetaminophen 500 mg tablet 1,000 mg (2 x 500 mg) PO Q 8 #0 tabs 07/20/24 Unknown Rx losartan 100 mg tablet 100 mg PO DAILY #0 tabs 07/10 06/05 Unknown Rx metoprolol tartrate 100 mg tablet 100 mg PO BID 30 day s #60 tabs 07/20/24 Unknown Rx ascorbic acid (vitamin C) 500 mg 500 mg PO DAILY suppl ement 08/30/24 Unknown History tablet (C-500) cholecalciferol (vitamin D3) 25 2,000 unit PO DAILY alvarado pplement 08/30/24 Unknown History mcg (1,000 unit) capsule magnesium oxide 420 mg tablet 420 mg PO DAILY 08/30/24 Unknown History pramipexole 1 mg tablet 3 mg (3 x 1 mg) PO QHS 30 da ys #90 08/31/24 Unknown Rx tabs rosuvastatin 20 mg tablet 20 mg PO QHS 1 month #30 tab s 08/31/24 Unknown Rx amlodipine 10 mg tablet 10 mg PO DAILY #0 tabs 09/03 Unknown Rx nitrofurantoin 100 mg PO Q12H 5 days #10 ca ps 10/01/24 Unknown Rx monohydrate/macrocrystals 100 mg capsule (Macrobid) docusate sodium 100 mg capsule 100 mg PO DAILY 5 Unknown History (Dulcolax Stool Softener (docusate)) ferrous sulfate 325 mg (65 mg 325 mg PO DAILY 10/03/24 Unknown History iron) tablet (iron) furosemide 40 mg tablet (Lasix) 40 mg PO DAILY 5 Unknown History hydrocodone 7.5 mg-acetaminophen 1 tab PO 4X/DAY PRN P RN pain 10/03/24 Unknown History 325 mg tablet Allergy/AdvReac Type Severity Reaction Status Date / Time cefazolin (From [facility] [place]) Allergy Severe Swelling Verified 10/03/24 17:47 silk Allergy Intermediate itching Verified 10/03/24 17:47 duloxetine (From Cymbalta) Allergy Unknown Hives Verified 10/03/24 17:47 shellfish derived Allergy Unknown Other Verified 10/03/24 17:47 beet (Beet) Allergy Hives Verified 10/03/24 17:47 cantaloupe Allergy Food Verified 10/03/24 17:47 Allergy eggplant Allergy Hives Verified 10/03/24 17:47 Food Allergies: Uncoded Allergy Itching Verified 10/03/24 17:47 levofloxacin (From Levaquin) Allergy Unknown Verified 10/03/24 17:47 mold Allergy NEEDS Verified 10/03/24 17:47 FOLLOW-UP Penicillins Allergy Unknown Verified 10/03/24 17:47 tomato Allergy Food Verified 10/03/24 17:47 Allergy wheat Allergy Hives Verified 10/03/24 17:47 gabapentin (From Neurontin) AdvReac Other Verified 10/03/24 17:47 meloxicam (From Mobic) AdvReac Other Verified 10/03/24 17:47 oxycodone (From OxyIR) AdvReac Nausea Verified 10/03/24 17:47 risedronate sodium (From AdvReac Other Verified 10/03/24 17:47 Actonel) Family History Other Cancer Diabetes Heart disease Surgical History H/O radiofrequency ablation (RFA) of nerve of lumbar spine History of kyphoplasty Hx of tonsillectomy H/O partial thyroidectomy History of appendectomy History of cholecystectomy Hx of bilateral cataract extraction History of thyroid surgery Hx of appendectomy History of tonsillectomy Hx of cholecystectomy History of thymectomy History of parathyroidectomy Social History adopted: No household members: none housing: condominium number of children: 2 current occupational status: retired current occupational exposures/hazards: No pets and animals: No leisure activities: reading and other history of recent travel: Yes (concert in [place]) Smoking Status: Never smoker alcohol intake: never substance use type: does not use caffeine: No ROS ROS ED Constitutional Constitutional ED: Denies chills or fever(s) Cardiovascular Cardiovascular: Denies chest pain Respiratory/Chest Respiratory/Chest: Denies cough or dyspnea Gastrointestinal Gastrointestinal: Reports constipation; Denies abdominal pain, nausea or vomiting Genitourinary Genitourinary ED: Denies dysuria or urinary frequency Musculoskeletal Musculoskeletal: Reports arthralgias, back pain and myalgias; Denies neck pain Integumentary Denies rash Neurologic Neurologic: Reports weakness; Denies headache(s) Psychiatric Psychiatric: Reports depression and other Details: Patient states she has been seeing people who will not talk to her. EXAM Physical Exam Const Vital Signs: 10/03/24 17:44 10/03/24 19:05 10/03/24 20:30 Temperature 98.5 F Temperature Source Oral Pulse Rate 18 L 93 Respiratory Rate 16 16 Respiratory Effort Normal Respiratory Pattern Normal Blood Pressure 179/63 H 114/93 H Blood Pressure Mean 101 100 Pulse Ox 99 99 Oxygen Delivery Method Room Air Room Air 10/03/24 22:00 Temperature 97.9 F Temperature Source Oral Pulse Rate 88 Respiratory Rate 16 Respiratory Effort Respiratory Pattern Blood Pressure 164/48 H Blood Pressure Mean 86 Pulse Ox 99 Oxygen Delivery Method Room Air Positive well nourished, well developed and unkempt General Appearance ED: unkempt and well developed HEENT Reports moist mucous membranes Eyes PERRL Neck supple and no JVD General: Negative for tenderness Chest Wall inspection of chest normal Chest Narrative: No chest wall crepitus. Mild tenderness palpation over the right mid anterior chest wall Resp normal respiratory effort and clear to auscultation bilaterally Cardio regular rate and regular rhythm GI normal to inspection, nondistended, normoactive bowel sounds and non-tender Auscultation: normoactive bowel sounds Palpation: soft Back/Spine no CVA tenderness Thoracic Spine / Upper Back: Negative for thoracic spinal tenderness Lumbar Spine / Lower Back: Negative for lumbar spinal tenderness Extremity Extremity Narrative: No obvious deformity. Tenderness palpation with range of motion of the left hip. Pelvis is stable. Neuro Neuro Narrative: Oriented to name and location. Patient is intermittently delirious and slightly confused but answers other questions quite appropriately. Sensorium / Orientation: alert Motor Exam: general weakness Psych mental status grossly normal Psych Narrative: Does report visual hallucinations of seeing people. Otherwise acting appropriately. Appearance: unkempt Skin no rashes or lesions noted Skin Narrative: Small area of erythema of the right lower back however is nontender to palpation. Small amount of bruising noted to the left anterior distal thigh. Mild tenderness there. Trauma: Negative for abrasion MDM MDM MDM Narrative Medical decision making narrative: Patient evaluated for what sounds like delirium, fall today and with inability to get herself up. She had a urinalysis 2 days ago that grew 80,000-100,000 CFU's per mL of gram-positive cocci (sensitivity still pending) but she did not start taking her antibiotics. Differential includes toxic metabolic encephalopathy, intracranial hemorrhage, stroke, hip fracture, acute delirium secondary to urinary tract infection, STACY, symptomatic anemia and sepsis. Pelvic x-ray with left hip reviewed by myself does not show any acute fracture. CT of the brain given her delirium and reported fall that was unwitnessed is obtained to look for intracranial hemorrhage. CT of the cervical spine is obtained to look for any acute traumatic cervical spinal injury. CT of the chest is obtained to look for any rib fracture given that she has pain over her right chest wall in the setting of a fall. Lab work shows mild anemia which appears to be near her baseline. No leukocytosis. BMP largely normal with no STACY or acute electro abnormalities. Urinalysis does show 2+ bacteria. Given her prior culture which was on treated and her acute delirium I do think she would benefit from IV antibiotics. Will be started on meropenem given her allergy to both Ancef and Levaquin. Given that patient did not have a positive culture 2 days ago, has not been treated and is now having delirium/visual hallucinations and falls as well as having difficulty taking her medications at home I do think she would benefit from admission to the hospital. Case discussed with hospitalist, Dr. Gaspar. He did request to add on a urine drug screen which is sent. Lab Data Attestation: I reviewed the patient's lab results. Labs: Laboratory Results - last 24 hr 10/03/24 10/03/24 20:11 20:30 WBC 10.3 RBC 3.54 L Hgb 10.4 L Hct 32.2 L MCV 91.0 MCH 29.4 MCHC 32.3 RDW Std Deviation 44.4 H RDW Coeff of Tiffani 13.3 Plt Count 368 MPV 9.2 Immature Gran % (Auto) 0.600 Neut % (Auto) 79.6 H Lymph % (Auto) 9.6 L [place] % (Auto) 9.8 Eos % (Auto) 0.1 Baso % (Auto) 0.3 Absolute Neuts (auto) 8.2 H Absolute Lymphs (auto) 0.99 Nucleated RBC % 0 Sodium 134 Potassium 4.2 Chloride 96 L Carbon Dioxide 28.4 Anion Gap 11 BUN 35 H Creatinine 1.04 Estim Creat Clear Calc 35.97 L Est GFR (MDRD) Non-Af 52 L BUN/Creatinine Ratio 33.3 H Glucose 121 H Calcium 8.4 Urine Color Straw Urine Clarity Clear Urine pH 6.5 Ur Specific [place] 1.010 Urine Protein 30 H Urine Glucose (UA) Normal Urine Ketones Negative Urine Occult Blood 25 H Urine Nitrite Negative Urine Bilirubin Negative Urine Urobilinogen Normal Ur Leukocyte Esterase Negative Urine RBC 0-5 SEEN Urine WBC 0-5 SEEN Ur Squamous Epith Cells 0 SEEN Urine Bacteria 2+ Urine Mucus 0 SEEN Urine Opiates Screen PRESUMPTIVE POSITIVE U Buprenorphine Qual NEGATIVE Ur Oxycodone Screen NEGATIVE Urine Methadone Screen NEGATIVE Urine Fentanyl Screen NEGATIVE Ur Barbiturates Screen NEGATIVE Ur Phencyclidine Scrn NEGATIVE Ur Amphetamines Screen NEGATIVE U Benzodiazepines Scrn NEGATIVE Urine Cocaine Screen NEGATIVE U Cannabinoids Screen NEGATIVE Radiography Diagnostic Testing: Clinical Impression(s) from Imaging Studies Cervical Spine CT 10/03/24 19:44 IMPRESSION: NO ACUTE CERVICAL FRACTURE. DEGENERATIVE CHANGES. Reading Location: [facility] Chest CT 10/03/24 19:44 IMPRESSION: 1. No acute thoracic finding. 2. Chronic findings as described. Reading Location: [facility] Brain CT 10/03/24 19:45 IMPRESSION: No acute intracranial finding. Reading Location: [facility] Hip/Pelvis X-Ray 10/03/24 21:28 IMPRESSION: DEGENERATIVE OSTEOARTHROSIS. NO ACUTE FINDINGS. Reading Location: [facility] Rhythm Strip Rhythm Strip: Sinus Rhythm Rate: 88 Ectopy: None EKG Initial EKG: Attestation: I personally reviewed and interpreted this EKG as follows: Interpretation: Sinus Rhythm Comments: Normal sinus rhythm rate of 88 bpm Left axis deviation Right bundle branch block Minimal voltage catcher for LVH Normal ST segments Discharge Plan Triage Chief Complaint: Weakness ED Provider: Diana Snow Dx/Rx/DC Orders Clinical Impression: Acute UTI, Noncompliance, Acute delirium, Fall Prescriptions: No Action Prolia 60 mg/mL syringe 60 mg SC [id number] Patient Comments: due February Rx Instructions: due in february aspirin 81 mg tablet,chewable 1 tab PO DAILY metoprolol tartrate 100 mg Tablet 100 mg PO BID 30 Days Qty: 60 0RF acetaminophen 500 mg Tablet 1,000 mg PO Q8 Qty: 0 0RF losartan 100 mg Tablet 100 mg PO DAILY Qty: 0 0RF magnesium oxide 420 mg tablet 420 mg PO DAILY ascorbic acid (vitamin C) [C-500] 500 mg tablet 500 mg PO DAILY cholecalciferol (vitamin D3) 25 mcg (1,000 unit) capsule 2,000 unit PO DAILY pramipexole 1 mg Tablet 3 mg PO QHS 30 Days Qty: 90 0RF Rx Instructions: Pramipexole and tramadol might make drowsiness worse therefore try to avoid together rosuvastatin 20 mg tablet 20 mg PO QHS 30 Days Qty: 30 2RF amlodipine 10 mg Tablet 10 mg PO DAILY Qty: 0 0RF Rx Instructions: Hold for SBP less than 130 mmHg nitrofurantoin monohyd/m-cryst [Macrobid] 100 mg capsule 100 mg PO Q12H 5 Days Qty: 10 0RF Rx Instructions: must administer with a meal/food furosemide [Lasix] 40 mg tablet 40 mg PO DAILY ferrous sulfate [iron] 325 mg (65 mg iron) tablet 325 mg PO DAILY docusate sodium [Dulcolax Stool Softener (dss)] 100 mg capsule 100 mg PO DAILY hydrocodone-acetaminophen 7.5-325 mg tablet 1 tab PO 4X/DAY PRN PRN (Reason: pain) Primary Care Provider: Hussein Swenson Referrals: Hussein Swenson MD [Primary Care Provider] - Print Language: Omani Disposition Disposition: Acute Care [facility]
[2024-10-03 22:00] VITALS: BP 164/48; PULSE 88; RESP 16; TEMP 36.6; O2SAT 99
[2024-10-03] MEDS: Meropenem 1 GM in 0.9% Normal Saline (100mL MB+) 100 ML IV (22:34)
--- NOTE | 2024-10-03 23:25 | PCM.HP.STD ---
[facility] - General General Date of Admission: 10/04/24 Date of Service: 10/03/24 Chief Complaint: Worsening Confusion. HPI Narrative JOYCE SOLOMON, is a 89 F with a past medical history of essential hypertension; on losartan, amlodipine, metoprolol tartrate twice daily and furosemide, hyperlipidemia; on rosuvastatin, history of partial thyroidectomy; with subsequent hypothyroidism; currently not on treatment, history of parathyroidectomy, history of thymectomy, remote history of scarlet fever, overweight; with BMI of 26.6 this admission, NEL; on CPAP, history of COPD, history of paroxysmal atrial fibrillation; currently not on anticoagulation but taking baby aspirin daily, chronic venous insufficiency, RLS; on pramipexole, history of migraine headaches, REYES, history of vitamin D deficiency, osteoporosis; on denosumab, osteoarthritis; with history of closed L2 compression fracture; s/p kyphoplasty and RFA of nerve of lumbar spine, history of secondary pulmonary hypertension, history of hypertensive emergency, history of cerebral amyloid angiopathy, 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); with Left-sided residual deficit and recent admission here from August 30, 2024 to August 31, 2024 for increased Left-sided facial droop with Left-sided weakness worse than her usual deficit in addition to confusion and dysphagia; with MRI that was negative for acute intracranial abnormality and 2D echo bubble contrast study that was negative for PFO with patient recommended to go to [facility] facility - but with patient refusing and opting to return home who then returned for another admission from September 01, 2024 to September 03, 2024 for treatment of hypertensive urgency with altered mental status who now re-presents to [facility] ER after family noted worsening confusion. Unfortunately, this patient has been admitted previously for similar complaint with complete stroke workup done but with patient unwilling to go to [facility] and family unable understand patient is no longer able to live independently resulting in a pattern of serial readmission. According to the records her family was concerned about her ability to live at home alone because when they went to check on her earlier today she was speaking gibberish when home health arrived. She had recently been at [place] [facility] but apparently could not afford to stay there resulting in her being sent back home. She had a recent urinalysis that was questionable for UTI and she was prescribed Macrobid but her family reports that though she did obtain the antibiotics there is still 10 pills in the container indicating that she never started to take them. She also apparently had a fall today after her leg buckled this morning with squad called because she could not get herself up and she refused transport at that time. She admits to constipation as she is on hydrocodone-APAP 4 times daily which is likely driving the worsening of her intermittent confusion. She states she has bruising on her back and increased pain in her right flank today but she denies loss of consciousness or head trauma with her fall. She additionally denies associated fever, chills, nausea, vomiting, diarrhea, abdominal pain, chest pain, shortness of breath, headache or rash. In the ER she was noted to have unremarkable vital signs and laboratory studies including urinalysis that was negative for acute infection at this time but she was noted to have a urine drug screen positive for opiates which is likely causing toxic encephalopathy due to adverse drug reaction in this elderly patient with a complicated neurologic history who needs permanent ECF placement to avoid further serial readmission. She was then admitted to the PCU under observation status for a stay that is expected to be less than 2 midnights. [facility] Medical History (Updated 10/04/24 @ 03:17 by Sweta Christensen) Chronic pain BiPAP (biphasic positive airway pressure) dependence Aphasia History of hemorrhagic cerebrovascular accident (CVA) with residual deficit Daytime somnolence Elevated PTHrP level Venous insufficiency of both lower extremities Cerebral amyloid angiopathy Hypothyroidism Hyperlipidemia Essential (primary) hypertension Hypertension Lumbar compression fracture Closed compression fracture of L2 vertebra COPD (chronic obstructive pulmonary disease) Wrist fracture, right Shoulder fracture, left Iron deficiency anemia Osteoporosis Vitamin D deficiency Hiatal hernia Restless legs History of stress test HTN (hypertension) Scarlet fever Sleep apnea Pulmonary hypertension Secondary pulmonary arterial hypertension Paroxysmal atrial fibrillation Incomplete right bundle branch block Obstructive sleep apnea Obesity Essential (primary) hypertension Multiple fractures of ribs, left side, initial encounter for closed fracture Hypertensive emergency Pneumonia Limb weakness Difficulty balancing Thyroid disease Migraines Fatigue Arthritis Community acquired pneumonia Home Medications ?Medication ?Instructions ?Recorded ?Last Taken ?Type denosumab 60 mg/mL subcutaneous 60 mg subcut [id number] osteoporosis 10/08/19 08/24/21 History syringe (Prolia) aspirin 81 mg chewable tablet 1 tab PO DAILY Heart health 05/16/24 05/30/24 History acetaminophen 500 mg tablet 1,000 mg (2 x 500 mg) PO Q8 #0 tabs 07/20/24 Unknown Rx losartan 100 mg tablet 100 mg PO DAILY #0 tabs 07/20/24 Unknown Rx metoprolol tartrate 100 mg tablet 100 mg PO BID 30 days #60 tabs 07/20/24 Unknown Rx ascorbic acid (vitamin C) 500 mg 500 mg PO DAILY supplement 08/30/24 Unknown History tablet (C-500) cholecalciferol (vitamin D3) 25 2,000 unit PO DAILY supplement 08/30/24 Unknown History mcg (1,000 unit) capsule magnesium oxide 420 mg tablet 420 mg PO DAILY 08/30/24 Unknown History pramipexole 1 mg tablet 3 mg (3 x 1 mg) PO QHS 30 days #90 08/31/24 Unknown Rx tabs rosuvastatin 20 mg tablet 20 mg PO QHS 1 month #30 tabs 08/31/24 Unknown Rx amlodipine 10 mg tablet 10 mg PO DAILY #0 tabs 09/03/24 Unknown Rx nitrofurantoin 100 mg PO Q12H 5 days #10 caps 10/01/24 Unknown Rx monohydrate/macrocrystals 100 mg capsule (Macrobid) docusate sodium 100 mg capsule 100 mg PO DAILY 10/03/24 Unknown History (Dulcolax Stool Softener (docusate)) ferrous sulfate 325 mg (65 mg 325 mg PO DAILY 10/03/24 Unknown History iron) tablet (iron) furosemide 40 mg tablet (Lasix) 40 mg PO DAILY 10/03/24 Unknown History hydrocodone 7.5 mg-acetaminophen 1 tab PO 4X/DAY PRN PRN pain 10/03/24 Unknown History 325 mg tablet Allergy/AdvReac Type Severity Reaction Status Date / Time cefazolin (From Ancef) Allergy Severe Swelling Verified 10/03/24 17:47 silk Allergy Intermediate itching Verified 10/03/24 17:47 duloxetine (From Cymbalta) Allergy Unknown Hives Verified 10/03/24 17:47 shellfish derived Allergy Unknown Other Verified 10/03/24 17:47 beet (Beet) Allergy Hives Verified 10/03/24 17:47 cantaloupe Allergy Food Verified 10/03/24 17:47 Allergy eggplant Allergy Hives Verified 10/03/24 17:47 Food Allergies: Uncoded Allergy Itching Verified 10/03/24 17:47 levofloxacin (From Levaquin) Allergy Unknown Verified 10/03/24 17:47 mold Allergy NEEDS Verified 10/03/24 17:47 FOLLOW-UP Penicillins Allergy Unknown Verified 10/03/24 17:47 tomato Allergy Food Verified 10/03/24 17:47 Allergy wheat Allergy Hives Verified 10/03/24 17:47 gabapentin (From Neurontin) AdvReac Other Verified 10/03/24 17:47 meloxicam (From Mobic) AdvReac Other Verified 10/03/24 17:47 oxycodone (From OxyIR) AdvReac Nausea Verified 10/03/24 17:47 risedronate sodium (From AdvReac Other Verified 10/03/24 17:47 Actonel) Family History Other Cancer Diabetes Heart disease Surgical History H/O radiofrequency ablation (RFA) of nerve of lumbar spine History of kyphoplasty Hx of tonsillectomy H/O partial thyroidectomy History of appendectomy History of cholecystectomy Hx of bilateral cataract extraction History of thyroid surgery Hx of appendectomy History of tonsillectomy Hx of cholecystectomy History of thymectomy History of parathyroidectomy Social History adopted: No household members: none housing: [facility] number of children: 2 current occupational status: retired current occupational exposures/hazards: No pets and animals: No leisure activities: reading and other history of recent travel: Yes (concert in [place]) Smoking Status: Never smoker alcohol intake: never substance use type: does not use caffeine: No ROS ROS Narrative Review of Systems: Constitutional: Patient denies fever or chills. Eyes: Patient denies change in vision or discharge from eyes. ENT: Patient denies runny nose, sore throat or ear pain. Resp: Patient denies shortness of breath or cough. CV: Patient denies chest pain, palpitations, heart racing or lower extremity edema. GI: Patient admits to constipation but she denies abdominal pain, nausea or vomiting. : Patient denies dysuria, hematuria or urinary frequency. MSK: Patient admits to generalized weakness with frequent falls due to back pain and myalgias as per HPI. Skin: Patient denies rash, abscess, wounds or jaundice. Psych: Patient has intermittent confusion since her previous strokes and cannot live at home alone. There is no report of SI or HI. Neuro: Patient admits to generalized weakness but she denies headache or paresthesias. Allergy: Patient denies lip swelling, tongue swelling or urticaria. Hematology: Patient denies easy bleeding or easy bruisability. Endocrinology: Patient denies polyuria, polydipsia, polyphagia or heat/cold intolerance. 14 point ROS otherwise negative except for positives noted above in HPI. Vital Signs Vital Signs Vital Signs: 10/03/24 17:44 10/03/24 19:05 10/03/24 20:30 Temperature 98.5 F Temperature Source Oral Pulse Rate 18 L 93 Respiratory Rate 16 16 Respiratory Effort Normal Respiratory Pattern Normal Blood Pressure 179/63 H 114/93 H Blood Pressure Mean 101 100 Pulse Ox 99 99 Oxygen Delivery Method Room Air Room Air 10/03/24 22:00 Temperature 97.9 F Temperature Source Oral Pulse Rate 88 Respiratory Rate 16 Respiratory Effort Respiratory Pattern Blood Pressure 164/48 H Blood Pressure Mean 86 Pulse Ox 99 Oxygen Delivery Method Room Air Weight Weight: 154 lb 15.759 oz Body Mass Index (BMI) 26.6 Physical Exam Const alert, no apparent distress and average body habitus Constitutional Narrative: Patient appears chronically ill and is confused. General Appearance: cooperative Orientation / Consciousness: confused HEENT normocephalic, head/scalp atraumatic, hearing grossly normal bilaterally and moist oral mucous membranes Eyes PERRL, EOMs intact bilaterally and conjunctivae normal Neck no lymphadenopathy, supple and no JVD Resp normal respiratory effort, no retractions, no use of accessory muscles and clear to auscultation bilaterally Resp Narrative: Mild tenderness to palpation over the Right anterior chest wall Cardio regular rate and regular rhythm GI normal to inspection, nondistended, normoactive bowel sounds, soft to palpation, non-tender and non-distended Extremity normal to inspection and no clubbing, cyanosis or edema Extremity Narrative: Tenderness to palpation with decreased range of motion of the left hip due to pain. Pelvis is stable. Skin Skin Narrative: Patient has bruising noted over the Left anterior distal thigh with mild tenderness to palpation. No abrasion or other sign of neurovascular compromise. Neuro CN's II-XII intact bilaterally, moves all extremities and no focal motor deficits Sensorium / Orientation: awake, alert, oriented to person and oriented to place Speech: speech normal Psych affect normal Results Medical Records Data Attestation: I reviewed the patient's medical records Lab / Micro Data Attestation: I reviewed the patient's lab results. 10/04/24 04:35 10/04/24 04:35 Labs: Laboratory Results - last 24 hr 10/03/24 20:11: WBC 10.3, RBC 3.54 L, Hgb 10.4 L, Hct 32.2 L, MCV 91.0, MCH 29.4, MCHC 32.3, RDW Std Deviation 44.4 H, RDW Coeff of Tiffani 13.3, Plt Count 368, MPV 9.2, Immature Gran % (Auto) 0.600, Neut % (Auto) 79.6 H, Lymph % (Auto) 9.6 L, [place] % (Auto) 9.8, Eos % (Auto) 0.1, Baso % (Auto) 0.3, Absolute Neuts (auto) 8.2 H, Absolute Lymphs (auto) 0.99, Nucleated RBC % 0, Sodium 134, Potassium 4.2, Chloride 96 L, Carbon Dioxide 28.4, Anion Gap 11, BUN 35 H, Creatinine 1.04, Estim Creat Clear Calc 35.97 L, Est GFR (MDRD) Non-Af 52 L, BUN/Creatinine Ratio 33.3 H, Glucose 121 H, Calcium 8.4 10/03/24 20:30: Urine Color Straw, Urine Clarity Clear, Urine pH 6.5, Ur Specific [place] 1.010, Urine Protein 30 H, Urine Glucose (UA) Normal, Urine Ketones Negative, Urine Occult Blood 25 H, Urine Nitrite Negative, Urine Bilirubin Negative, Urine Urobilinogen Normal, Ur Leukocyte Esterase Negative, Urine RBC 0-5 SEEN, Urine WBC 0-5 SEEN, Ur Squamous Epith Cells 0 SEEN, Urine Bacteria 2+, Urine Mucus 0 SEEN Rhythm Strip Rhythm Strip: Sinus Rhythm Rate: 88 Ectopy: None Imaging Radiology Impression Cervical Spine CT 10/03/24 19:44 IMPRESSION: NO ACUTE CERVICAL FRACTURE. DEGENERATIVE CHANGES. Reading Location: [facility] Chest CT 10/03/24 19:44 IMPRESSION: 1. No acute thoracic finding. 2. Chronic findings as described. Reading Location: [facility] Brain CT 10/03/24 19:45 IMPRESSION: No acute intracranial finding. Reading Location: [facility] Hip/Pelvis X-Ray 10/03/24 21:28 IMPRESSION: DEGENERATIVE OSTEOARTHROSIS. NO ACUTE FINDINGS. Reading Location: [facility] Assessment & Plan Assessment/Plan (1) Toxic encephalopathy: QUALIFIERS: Toxic encephalopathy cause: unspecified toxin Qualified Code(s): G92.9 - Unspecified toxic encephalopathy (2) Fall: QUALIFIERS: Encounter type: initial encounter Qualified Code(s): W19.XXXA - Unspecified fall, initial encounter (3) Adverse drug reaction: QUALIFIERS: Encounter type: initial encounter Qualified Code(s): T50.905A - Adverse effect of unspecified drugs, medicaments and biological substances, initial encounter (4) Noncompliance: (5) Chronic back pain: QUALIFIERS: Back pain laterality: unspecified Back pain location: back pain in unspecified location Qualified Code(s): M54.9 - Dorsalgia, unspecified; G89.29 - Other chronic pain (6) History of hemorrhagic cerebrovascular accident (CVA) with residual deficit: PLAN: Plan 1. Acute Toxic Encephalopathy with recent Fall at Home- Admit to PCU under observation status. We will check MRI of the brain to evaluate for possible acute CVA with low-index of suspicion for new neurologic insult. We will minimize HAND SANDER-active medications. Finally, we will consult PT/OT and Case Management to see patient on rounds in the a.m. for further recommendations regarding permanent ECF placement so we can avoid further serial readmission for similar issues without appreciated in advance. 2. Adverse Drug Reaction to hydrocodone-APAP 4 times daily used to treat Chronic Back Pain likely causing #1 - Hold opiates to allow sensorium to clear. Give acetaminophen prn pain or fever. 3. Most recent admission from September 01, 2024 to September 03, 2024 for treatment of Hypertensive Urgency with Altered Mental Status who was discharged to [facility] with patient unable to afford to stay complicating #1 & #2 - Noted with patient obviously unable to care for herself at home proved even more clearly by patient's failure to take recently diagnosed UTI. 4. Recent admission here from August 30, 2024 to August 31, 2024 for increased Left-sided facial droop with Left-sided weakness worse than her usual deficit in addition to confusion and dysphagia; with MRI that was negative for acute intracranial abnormality and 2D echo bubble contrast study that was negative for PFO with patient recommended to go to [facility] facility - but with patient refusing and opting to return home adding to the medical complexity of #1 - #3 - Noted. 5. History Right parietal intracranial hemorrhagic CVA with cerebral amyloid angiopathy (04/2024); with Left-sided residual deficit adding to the burden of disease outlined from #1 - #4 - Noted. 6. Essential hypertension; on losartan, amlodipine, metoprolol tartrate twice daily and furosemide - Hold scheduled antihypertensives until CVA definitively ruled out on MRI. 7. Hyperlipidemia; on rosuvastatin - Resume statin. 8. History of partial thyroidectomy; with subsequent hypothyroidism; currently not on treatment - Noted. 9. History of parathyroidectomy - Noted. 10. History of thymectomy - Noted. 11. Remote history of scarlet fever - Noted for the sake of completeness. 12. Overweight; with BMI of 26.6 this admission plus NEL; on CPAP - Weight loss will be recommended. Continue nocturnal CPAP. 13. History of COPD with secondary pulmonary hypertension - Stable with no evidence of acute flare at this time. 14. History of paroxysmal atrial fibrillation; currently not on anticoagulation but taking baby aspirin daily - Resume BASA daily as before. 15. Chronic venous insufficiency - Stable. 16. RLS; on pramipexole - Current treatment to be maintained. 17. History of migraine headaches - Stable with no complaints of headache at this time. 18. REYES - Stable with hemoglobin of 10.4 g/dL and MCV of 91 fL present on admission. 19. History of vitamin D deficiency - Stable with recent level on September 06, 2024 at 34 ng/mL. 20. Osteoporosis; on denosumab - Restart denosumab as outpatient. 21. OA; with history of closed L2 compression fracture; s/p kyphoplasty and RFA of nerve of lumbar spine - Noted. 22. DVT prophylaxis - SCD's only with history of hemorrhagic CVA and recent fall. Total time: Approximately (but not less than) 85 minutes. Charges/Coding Visit Charges OBSV E&M: [id number] Observ/hosp same date L3
[2024-10-03 23:56] LABS: Amphetamine Urine NEGATIVE (<1000 ng/mL); Barbiturate Urine NEGATIVE (< 200 ng/mL); Benzodiazepine Urine NEGATIVE (< 200 ng/mL); Buprenorphine Urine NEGATIVE (< 200 ng/mL); Cocaine Urine NEGATIVE (< 300 ng/mL); Fentanyl, Urine NEGATIVE; Methadone Urine NEGATIVE (< 300 ng/mL); Opiates Urine PRESUMPTIVE POSITIVE (< 300 ng/mL); Oxycodone, Urine NEGATIVE (< 100 ng/mL); PCP Urine NEGATIVE (< 25 ng/mL); THC Urine NEGATIVE (< 50 ng/mL)
[2024-10-04] VITALS (10 sets, daily range): BP systolic 142–160; BP diastolic 38–134; PULSE 81–96; RESP 16–18; TEMP 36.6–37.1; O2SAT 92–100; BMI 29.5
--- NOTE | 2024-10-04 00:47 | MRI_ITS ---
PROCEDURE: BRAIN WITHOUT CONTRAST N/A REASON FOR EXAM: [facility] TECHNIQUE: Noncontrast brain MRI. Multiplanar and multisequence images were obtained. COMPARISON: 08/31/2024 FINDINGS: No intracranial mass. No hydrocephalus. There is an acute punctate lacunar infarct in the posterior right centrum on diffusion-weighted sequences. Normal brainstem and cerebellum without pathologic flow voids. Mild periventricular chronic small-vessel ischemic change. Coronal T2 weighted images are limited by motion. No hemorrhages noted. MRI/Brain without Contrast IMPRESSION: Periventricular chronic small-vessel ischemic change with acute right punctate lacunar type infarction in the posterior right centrum. Reading [facility]
[2024-10-04 01:08] LABS: Alcohol, Blood (Medical)-Serum < 10.1 mg/dL (<=10.0)
[2024-10-04 01:27] LABS: Magnesium 3.4 mg/dL (1.5-2.2)
[2024-10-04] MEDS: 0.9% Normal Saline (1000mL) 1,000 ML 70 ML IV (03:03)
[2024-10-04 05:00] LABS: Absolute Lymphocyte Count 1.42 X10^3/uL (0.83-4.51); Absolute Neutrophil Count 6.8 X10^3/uL (2.0-7.7); Basophil# 0.06 X10^3/uL; Basophil% 0.6 % (0-1); Eosinophil# 0.11 X10^3/uL; Eosinophils% 1.1 % (0-5); Hemoglobin 10.8 g/dL (12.0-15.0); Lymphocyte # 1.42 X10^3/ul (0.83-4.51); Lymphocyte % 14.8 % (19-41); Mean Corp Hgb Conc 31.8 g/dL (32-36); Mean Corpuscular Volume 91.2 fL (81-99); Mean Platelet Vol. 9.3 fl (6.2-12.0); Monocyte# 1.11 X10^3/uL; Monocyte% 11.6 % (0-10); NRBC Flagged by Analyzer 0 % (0-5); Neutrophil # 6.82 X10^3/uL (2.7-7.7); Neutrophil % 71.3 % (47-70); Platelet Count 379 K/mm3 (150-450); RBC Distribution Width CV 13.3 % (11.6-14.6); RBC Distribution Width SD 44.9 fl (35.1-43.9); Red Blood Count 3.73 M/mm3 (4.2-5.4); White Blood Count 9.6 K/mm3 (4.4-11.0)
[2024-10-04] MEDS: Acetaminophen 500 MG Tablet 1000 MG PO ×3 (05:22→22:38)
[2024-10-04 05:30] LABS: ALB/GLOB Ratio 1.4 RATIO (0.9-2.4); AST(SGOT) 28 U/L (<=31); Alanine Aminotransfer ALT/SGPT 12 U/L (<=34); Albumin, Serum 3.8 g/dL (3.4-4.8); Alkaline Phosphatase 88 U/L (35-104); Anion Gap 13 (5-15); BUN 30 mg/dL (4-19); BUN/Creat Ratio 31.8 RATIO (10-20); Calcium,Total 8.3 mg/dL (7.6-11.0); Chloride 97 mmol/L (98-108); Creatinine, Serum 0.93 mg/dL (0.70-1.20); EST Glomerular Filtration Rate 59 (>60); Estimated Creatinine Clearance 36.11 ml/min (50-250); Globulin 2.7 g/dL (2.2-4.2); Glucose 141 mg/dL (70-99); Phosphorus 2.5 mg/dL (2.7-4.5); Potassium 3.6 mmol/L (3.3-5.1); Protein, Total 6.4 g/dL (5.9-8.4); Sodium Level 136 mmol/L (133-145); Thyroid Stim Hormone (TSH) 0.373 uIU/mL (0.300-4.200); Total Bilirubin 0.41 mg/dL (0.00-1.30)
[2024-10-04] MEDS: Meropenem 1 GM in 0.9% Normal Saline (100mL MB+) 100 ML IV (09:37)
[2024-10-04] MEDS: Magnesium Chloride 64 MG Delay Rel.Tablet 128 MG PO (09:43)
[2024-10-04] MEDS: Lactobacillis Acidophilus 1 CAP PO ×4 (09:43→22:37)
[2024-10-04] MEDS: Cholecalciferol (VIT D3) 25 MCG TABLET (1,000 UNITS) 50 MCG PO (09:44)
[2024-10-04] MEDS: Ascorbic Acid 500 MG Tablet PO (09:44)
[2024-10-04] MEDS: LORazepam 0.5 MG Tablet PO (09:48)
--- NOTE | 2024-10-04 10:35 | PCM.PN.HOSP ---
Reason for Visit Reason for Visit: Diagnoses Other chronic pain (10/04/24) Unspecified toxic encephalopathy (10/04/24) Unspecified sequelae of cerebral infarction (10/04/24) Dorsalgia, unspecified (10/04/24) Urinary tract infection, site not specified (10/04/24) Adverse effect of unspecified drugs, medicaments and biological substances, initial encounter (10/04/24) Unspecified fall, initial encounter (10/04/24) Patient's noncompliance with other medical treatment and regimen due to unspecified reason (10/04/24) Subjective Subjective Saw patient at bedside this morning. Patient was alert and oriented x 3 for me and was answering questions appropriately. She was able to tell me that she was in the hospital because she has been intermittently more confused over the past week or so. For me that she lives at home alone. States that she has chronic low right back pain but has only been taking opiates 1-2 times daily for this and has never taken them 4 times in a day. She does report feeling that her confusion appears to be worse at night. No other new concerns today. Objective Data Objective Data Vital Signs: Vital Signs Temp Pulse Resp BP Pulse Ox O2 Del Method 98.6 F 92 18 149/42 H 100 Room Air 10/04/24 09:53 10/04/24 09:53 10/04/24 09:53 10/04/24 09:53 10/04/24 09:53 10/04/24 09:53 Oxygen Delivery Method Room Air Weight: 68.5 kg Body Mass Index (BMI) 29.5 Intake & Output: Intake and Output for Last 24 Hours 10/02/24 10/03/24 10/04/24 23:59 23:59 23:59 Intake Total 120 / 120 Output Total 240 / 240 Balance -120 / -120 Lab / Micro Data 10/04/24 04:35 10/04/24 04:35 Labs: Laboratory Results - last 24 hr 10/03/24 20:11: WBC 10.3, RBC 3.54 L, Hgb 10.4 L, Hct 32.2 L, MCV 91.0, MCH 29.4, MCHC 32.3, RDW Std Deviation 44.4 H, RDW Coeff of Tiffani 13.3, Plt Count 368, MPV 9.2, Immature Gran % (Auto) 0.600, Neut % (Auto) 79.6 H, Lymph % (Auto) 9.6 L, Pickett % (Auto) 9.8, Eos % (Auto) 0.1, Baso % (Auto) 0.3, Absolute Neuts (auto) 8.2 H, Absolute Lymphs (auto) 0.99, Nucleated RBC % 0, Sodium 134, Potassium 4.2, Chloride 96 L, Carbon Dioxide 28.4, Anion Gap 11, BUN 35 H, Creatinine 1.04, Estim Creat Clear Calc 35.97 L, Est GFR (MDRD) Non-Af 52 L, BUN/Creatinine Ratio 33.3 H, Glucose 121 H, Calcium 8.4, Magnesium 3.4 H, Ethyl Alcohol < 10.1 10/03/24 20:30: Urine Color Straw, Urine Clarity Clear, Urine pH 6.5, Ur Specific Seminole 1.010, Urine Protein 30 H, Urine Glucose (UA) Normal, Urine Ketones Negative, Urine Occult Blood 25 H, Urine Nitrite Negative, Urine Bilirubin Negative, Urine Urobilinogen Normal, Ur Leukocyte Esterase Negative, Urine RBC 0-5 SEEN, Urine WBC 0-5 SEEN, Ur Squamous Epith Cells 0 SEEN, Urine Bacteria 2+, Urine Mucus 0 SEEN, Urine Opiates Screen PRESUMPTIVE POSITIVE, U Buprenorphine Qual NEGATIVE, Ur Oxycodone Screen NEGATIVE, Urine Methadone Screen NEGATIVE, Urine Fentanyl Screen NEGATIVE, Ur Barbiturates Screen NEGATIVE, Ur Phencyclidine Scrn NEGATIVE, Ur Amphetamines Screen NEGATIVE, U Benzodiazepines Scrn NEGATIVE, Urine Cocaine Screen NEGATIVE, U Cannabinoids Screen NEGATIVE 10/04/24 04:35: WBC 9.6, RBC 3.73 L, Hgb 10.8 L, Hct 34.0 L, MCV 91.2, MCH 29.0, MCHC 31.8 L, RDW Std Deviation 44.9 H, RDW Coeff of Tiffani 13.3, Plt Count 379, MPV 9.3, Immature Gran % (Auto) 0.600, Neut % (Auto) 71.3 H, Lymph % (Auto) 14.8 L, Pickett % (Auto) 11.6 H, Eos % (Auto) 1.1, Baso % (Auto) 0.6, Absolute Neuts (auto) 6.8, Absolute Lymphs (auto) 1.42, Nucleated RBC % 0, Sodium 136, Potassium 3.6, Chloride 97 L, Carbon Dioxide 26.0, Anion Gap 13, BUN 30 H, Creatinine 0.93, Estim Creat Clear Calc 36.11 L, Est GFR (MDRD) Non-Af 59 L, BUN/Creatinine Ratio 31.8 H, Glucose 141 H, Calcium 8.3, Phosphorus 2.5 L, Total Bilirubin 0.41, AST 28, ALT 12, Alkaline Phosphatase 88, Total Protein 6.4, Albumin 3.8, Globulin 2.7, Albumin/Globulin Ratio 1.4, TSH 0.373 Radiography Diagnostic Testing: Radiology Impression Cervical Spine CT 10/03/24 19:44 IMPRESSION: NO ACUTE CERVICAL FRACTURE. DEGENERATIVE CHANGES. Reading Location: [facility] Chest CT 10/03/24 19:44 IMPRESSION: 1. No acute thoracic finding. 2. Chronic findings as described. Reading Location: [facility] Brain CT 10/03/24 19:45 IMPRESSION: No acute intracranial finding. Reading Location: [facility] Hip/Pelvis X-Ray 10/03/24 21:28 IMPRESSION: DEGENERATIVE OSTEOARTHROSIS. NO ACUTE FINDINGS. Reading Location: [facility] Rhythm Strip Rhythm Strip: Sinus Rhythm Rate: 88 Ectopy: None Physical Exam Const alert, oriented x3, no apparent distress and average body habitus Constitutional Narrative: Elderly female, mildly fatigued appearing but otherwise sitting up comfortably in bedside chair, conversing normally, in no acute distress. General Appearance: cooperative and comfortable HEENT normocephalic, head/scalp atraumatic, hearing grossly normal bilaterally, nasal mucous membranes and turbinates normal and moist oral mucous membranes Eyes PERRL, EOMs intact bilaterally and conjunctivae normal Neck full ROM Chest inspection of chest normal Resp normal respiratory effort, normal air movement, no use of accessory muscles and clear to auscultation bilaterally Cardio regular rate, regular rhythm, no murmurs and peripheral pulses 2+ throughout GI normal to inspection, nondistended, normoactive bowel sounds, soft to palpation, non-tender and non-distended Back/Spine normal ROM Extremity normal to inspection, full ROM and no pedal edema Skin no rashes or lesions noted Psych mental status grossly normal Assessment & Plan Assessment/Plan (1) Toxic encephalopathy: QUALIFIERS: Toxic encephalopathy cause: unspecified toxin Qualified Code(s): G92.9 - Unspecified toxic encephalopathy PLAN: Plan Patient is an 89-year-old female who presented to [facility] ED on 10/03/2024 with worsening confusion with weakness. 1. Acute toxic encephalopathy, improved ? Presented from home with worsening confusion with delirium. Lives at home alone. Notably much improved on hospital day 2 and alert and oriented x 3. Highest concern is encephalopathy secondary to high home dosage of pramipexole for RLS. Seems less likely that acute CVA is contributing but cannot rule this out. Patient is on 3 mg of pramipexole at night; no history of Parkinson's that is noted. It appears on chart review that she was on 1.5 mg at night as of a few months ago; unclear when the dosage was increased. Will decrease back to 1.5 mg at night for now and can consider reducing further if needed. 2. Acute CVA; history of CVA with residual left-sided deficits, hypertension, hyperlipidemia ? Neurology consulted. Presented with worsening confusion with delirium as above. No new motor deficits noted. CT brain unremarkable. However, MRI brain showed an acute right punctate lacunar type infarction in the posterior right centrum. May have contributed to symptoms as above but this is unclear. Had borderline therapy scores as noted below but this is at her baseline. Appreciate neurology recommendations. Will continue to treat with home aspirin, statin, Lopressor, Lasix and losartan at this time. 3. Acute on chronic debility with recent fall at home ? PT/OT/case management following. Patient lives at home alone. Was discharged to SNF at [place] after recent hospitalization in late August. Therapy scores borderline here; will likely need either home with home health care versus SNF on discharge. 4. Chronic back pain ? On home hydrocodone?acetaminophen 7.5?325 mg up to 4 times daily as needed. Patient denies overuse of this medication but there is concern that this could be contributing to her encephalopathy as above. Will treat with scheduled Tylenol 1 g every 8 hours here and can consider adding p.o. Dilaudid as needed. Pain has been well-controlled since admission. 5. Restless leg syndrome ? On pramipexole at home. As noted above, had dosage increase from 1.5 to 3 mg at night at some point in the past few months for unclear reason. Notably recommended dosing for RLS is a maximum of 0.75 mg daily. Dosing can be higher for Parkinson's disease but patient has no Parkinson's diagnosis listed. Will decrease back to 1.5 mg at night for now and recommend further down titration in the outpatient setting as able. 6. Concern for UTI ? UA with 2+ bacteria but negative leukocyte esterase and negative nitrates. Urine culture growing 80-100,000 Aerococcus. Patient with no UTI symptoms and otherwise noninfectious appearing, will hold on any further antibiotics. 7. Chronic iron deficiency anemia ? Hemoglobin stable at baseline around 10-11 during hospitalization. Continue home iron supplement. DVT prophylaxis: Lovenox CODE STATUS: DNR CCA, DNI Expected disposition: Likely home with [facility], 1 to 2 days Total clinical time spent by myself addressing the patient's medical issues, reviewing all the data, and collaborating with patient's care team: 35 minutes. Charges/Coding Visit Charges Inpatient E&M: 69879 Subs Hosp L2
[2024-10-04] MEDS: Ferrous Sulfate 325 MG Tablet PO (11:40)
[2024-10-04] MEDS: Aspirin 81 MG TAB.CHEW PO (11:40)
--- NOTE | 2024-10-04 21:27 | CPS ---
Patient set up with own PAP machine for the night
[2024-10-04] MEDS: Pramipexole Di-HCl 1 MG Tablet 1.5 MG PO (22:37)
[2024-10-04] MEDS: Atorvastatin Calcium 40 MG Tablet PO (22:37)
[2024-10-04] MEDS: MELATONIN 3 MG TABLET PO (22:38)
[2024-10-05] VITALS (7 sets, daily range): BP systolic 144–150; BP diastolic 43–90; PULSE 71–85; RESP 14–16; TEMP 36.3–37.1; O2SAT 93–98; BMI 31.6
[2024-10-05] MEDS: Acetaminophen 500 MG Tablet 1000 MG PO ×3 (06:08→22:59)
[2024-10-05 07:46] LABS: Cholesterol 173 mg/dL (<=200); High Density Lipoprotein 108 mg/dL; Low Density Lipoprotein Calc. 49 mg/dL; Triglycerides 78 mg/dL; Very Low Density Lipoprotein 16 mg/dL (5-40)
[2024-10-05] MEDS: Lactobacillis Acidophilus 1 CAP PO ×4 (10:12→23:00)
[2024-10-05] MEDS: Aspirin 81 MG TAB.CHEW PO (10:12)
[2024-10-05] MEDS: Furosemide 40 MG Tablet PO (10:13)
[2024-10-05] MEDS: Docusate Sodium 100 MG Capsule PO (10:13)
[2024-10-05] MEDS: Losartan Potassium 100 MG Tablet PO (10:13)
[2024-10-05] MEDS: Metoprolol Tartrate 100 MG Tablet PO ×2 (10:13→23:00)
[2024-10-05] MEDS: Cholecalciferol (VIT D3) 25 MCG TABLET (1,000 UNITS) 50 MCG PO (10:14)
[2024-10-05] MEDS: Ascorbic Acid 500 MG Tablet PO (10:14)
[2024-10-05] MEDS: Magnesium Chloride 64 MG Delay Rel.Tablet 128 MG PO (10:14)
--- NOTE | 2024-10-05 10:33 | CASEMGMT ---
Spoke with patients daughter (Janki Collins) to complete RO form. RO form explained to daughter who voiced understanding and verbally acknowledged form. Original form placed in pt?s chart and copy placed in pts room. Cassandra Church, Discharge Planning Asst
--- NOTE | 2024-10-05 12:48 | NEURO.CONS ---
Assessment and Plan: Neuro Assessment/Plan JOYCE SOLOMON is a 89 F with a past medical history of HTN, HLD, NEL on CPAP, COPD, R ICH in 05/04, pafib (was on warfarin that was stopped following her ICH in 2023), hx of ?CAA, being evaluated by Teleneurology for punctate acute infarct in the posterior right centrum. Patient is outside the window for lytics Diagnosis: Acute ischemic stroke Recommendations: 1. Patient has been off Warfarin since 04/2024 following her R ICH. I discussed the risks of having another strokes in the future if she stays off AC with her hx of pAfib. She was very nervous to resume AC which is understandable given her hx of ICH. I recommend continuation of ASA for secondary stroke prevention. Cardiology evaluation for possible Watchman if she is interested 2. Statin for secondary stroke prevention 3. CTA was done in August 2024, no LVO or significant arterial stenosis or malformation 4. TTE was reviewed from August 2024, EF of 55%, no regional wall motion abnormalities of the LV 5. PT/OT/HEALTH EVALUATOR evaluation 6. Normotension is the goal 7. Stroke education and risk factors modification I personally attended this patient and spent a total time of 55 minutes evaluating this patient including clinical assessment, review of chart, medical history imaging, and determining appropriate treatment and workup. HPI Consult Data Date of Consult: 10/05/24 HPI Narrative HPI Narrative: JOYCE SOLOMON, is a 89 F with a hx of HTN, HLD, NEL on CPAP, COPD, R ICH in 05/04, pafib (was on warfarin that was stopped following her ICH in 2023), hx of ?CAA, prior admission in August 2023 for worsening L sided weakness (MRI was negative for acute stroke at that time) who presented with worsening confusion. Brain MRI showed punctate acute infarct in the posterior right centrum. CTA in August 2023 with no significant arterial stenosis or LVO. Telestroke was consulted for further recommendations. [facility] Medical History (Updated 10/04/24 @ 03:17 by Sweta Christensen) Chronic pain BiPAP (biphasic positive airway pressure) dependence Aphasia History of hemorrhagic cerebrovascular accident (CVA) with residual deficit Daytime somnolence Elevated PTHrP level Venous insufficiency of both lower extremities Cerebral amyloid angiopathy Hypothyroidism Hyperlipidemia Essential (primary) hypertension Hypertension Lumbar compression fracture Closed compression fracture of L2 vertebra COPD (chronic obstructive pulmonary disease) Wrist fracture, right Shoulder fracture, left Iron deficiency anemia Osteoporosis Vitamin D deficiency Hiatal hernia Restless legs History of stress test HTN (hypertension) Scarlet fever Sleep apnea Pulmonary hypertension Secondary pulmonary arterial hypertension Paroxysmal atrial fibrillation Incomplete right bundle branch block Obstructive sleep apnea Obesity Essential (primary) hypertension Multiple fractures of ribs, left side, initial encounter for closed fracture Hypertensive emergency Pneumonia Limb weakness Difficulty balancing Thyroid disease Migraines Fatigue Arthritis Community acquired pneumonia Home Medications ?Medication ?Instructions ?Recorded ?Last Taken ?Type denosumab 60 mg/mL subcutaneous 60 mg subcut [id number] osteoporosis 10/08/19 08/24/21 History syringe (Prolia) aspirin 81 mg chewable tablet 1 tab PO DAILY Heart health 05/16/24 05/30/24 History acetaminophen 500 mg tablet 1,000 mg (2 x 500 mg) PO Q8 #0 tabs 07/20/24 Unknown Rx losartan 100 mg tablet 100 mg PO DAILY #0 tabs 07/20/24 Unknown Rx metoprolol tartrate 100 mg tablet 100 mg PO BID 30 days #60 tabs 07/20/24 Unknown Rx ascorbic acid (vitamin C) 500 mg 500 mg PO DAILY supplement 08/30/24 Unknown History tablet (C-500) cholecalciferol (vitamin D3) 25 2,000 unit PO DAILY supplement 08/30/24 Unknown History mcg (1,000 unit) capsule magnesium oxide 420 mg tablet 420 mg PO DAILY 08/30/24 Unknown History pramipexole 1 mg tablet 3 mg (3 x 1 mg) PO QHS 30 days #90 08/31/24 Unknown Rx tabs rosuvastatin 20 mg tablet 20 mg PO QHS 1 month #30 tabs 08/31/24 Unknown Rx amlodipine 10 mg tablet 10 mg PO DAILY #0 tabs 09/03/24 Unknown Rx nitrofurantoin 100 mg PO Q12H 5 days #10 caps 10/01/24 Unknown Rx monohydrate/macrocrystals 100 mg capsule (Macrobid) docusate sodium 100 mg capsule 100 mg PO DAILY 10/03/24 Unknown History (Dulcolax Stool Softener (docusate)) ferrous sulfate 325 mg (65 mg 325 mg PO DAILY 10/03/24 Unknown History iron) tablet (iron) furosemide 40 mg tablet (Lasix) 40 mg PO DAILY 10/03/24 Unknown History hydrocodone 7.5 mg-acetaminophen 1 tab PO 4X/DAY PRN PRN pain 10/03/24 Unknown History 325 mg tablet Allergy/AdvReac Type Severity Reaction Status Date / Time cefazolin (From Ancef) Allergy Severe Swelling Verified 10/03/24 17:47 silk Allergy Intermediate itching Verified 10/03/24 17:47 duloxetine (From Cymbalta) Allergy Unknown Hives Verified 10/03/24 17:47 shellfish derived Allergy Unknown Other Verified 10/03/24 17:47 beet (Beet) Allergy Hives Verified 10/03/24 17:47 cantaloupe Allergy Food Verified 10/03/24 17:47 Allergy eggplant Allergy Hives Verified 10/03/24 17:47 Food Allergies: Uncoded Allergy Itching Verified 10/03/24 17:47 levofloxacin (From Levaquin) Allergy Unknown Verified 10/03/24 17:47 mold Allergy NEEDS Verified 10/03/24 17:47 FOLLOW-UP Penicillins Allergy Unknown Verified 10/03/24 17:47 tomato Allergy Food Verified 10/03/24 17:47 Allergy wheat Allergy Hives Verified 10/03/24 17:47 gabapentin (From Neurontin) AdvReac Other Verified 10/03/24 17:47 meloxicam (From Mobic) AdvReac Other Verified 10/03/24 17:47 oxycodone (From OxyIR) AdvReac Nausea Verified 10/03/24 17:47 risedronate sodium (From AdvReac Other Verified 10/03/24 17:47 Actonel) Family History Other Cancer Diabetes Heart disease Surgical History H/O radiofrequency ablation (RFA) of nerve of lumbar spine History of kyphoplasty Hx of tonsillectomy H/O partial thyroidectomy History of appendectomy History of cholecystectomy Hx of bilateral cataract extraction History of thyroid surgery Hx of appendectomy History of tonsillectomy Hx of cholecystectomy History of thymectomy History of parathyroidectomy Social History adopted: No household members: none housing: condominium number of children: 2 current occupational status: retired current occupational exposures/hazards: No pets and animals: No leisure activities: reading and other history of recent travel: Yes (concert in [place]) Smoking Status: Never smoker alcohol intake: never substance use type: does not use caffeine: No Vital Signs Vital Signs Vital Signs: 10/04/24 13:45 10/04/24 14:00 10/04/24 16:14 Temperature 97.9 F 98.8 F Temperature Source Oral Oral Pulse Rate 84 81 Respiratory Rate 16 16 Respiratory Effort Normal Non-Labored Respiratory Depth Normal Respiratory Pattern Normal Blood Pressure 142/47 H 145/49 H Blood Pressure Mean 78 81 Pulse Ox 100 94 Oxygen Delivery Method Room Air Room Air Room Air 10/04/24 19:56 10/04/24 20:00 10/04/24 22:30 Temperature 97.8 F Temperature Source Temporal Pulse Rate 88 Respiratory Rate 16 Respiratory Effort Normal Non-Labored Respiratory Depth Normal Respiratory Pattern Normal Blood Pressure 160/52 H Blood Pressure Mean 88 Pulse Ox 98 Oxygen Delivery Method Room Air Room Air Room Air 10/05/24 03:30 10/05/24 03:33 10/05/24 10:00 Temperature 97.5 F L Temperature Source Temporal Pulse Rate 80 Respiratory Rate 16 Respiratory Effort Normal Non-Labored Normal Non-Labored Respiratory Depth Normal Normal Respiratory Pattern Normal Normal Blood Pressure 150/90 H Blood Pressure Mean 110 Pulse Ox 94 Oxygen Delivery Method Room Air Room Air Room Air 10/05/24 10:10 10/05/24 10:13 Temperature 97.4 F L Temperature Source Temporal Pulse Rate 85 85 Respiratory Rate 14 Respiratory Effort Respiratory Depth Respiratory Pattern Blood Pressure 148/59 H 148/59 H Blood Pressure Mean 88 Pulse Ox 93 Oxygen Delivery Method Room Air Weight Weight: 73.4 kg Body Mass Index (BMI) 31.6 Physical Exam Narrative Patient is awake and alert, follows commands, hard of hearing, oriented x3, no clear drifts on my exam. Sensation intact to LT, no aphasia, no dysmetria Medical Records Data Medical Nutrition Assessment Dietitian: Malnutrition Criteria Met Start: 10/04/24 15:46 Freq: Status: Active Protocol: Document 10/04/24 15:46 VIJAYA (Rec: 10/04/24 15:46 [email or web address] [id number]) Nutrition Malnutrition Evidence of Yes Malnutrition Exists Malnutrition ( Chronic moderate): Evidenced By Suboptimal Energy Intake (Moderate),Weight Loss (Severe ),Physical Changes (Moderate) Clinical Problem Chronic Disease or Condition Related Malnutrition Etiology related to decreased appetite and oral intakes Signs/Symptoms as evidenced by significant weight loss of 7.4% or 12lb since 09/01/24 weight of 163lb, pt report of poor appetite and oral intakes x 7 months with suspected oral intakes meeting less than 75% of estimated nutrient needs and visual evidence of mild to moderate muscle and fat wasting (temples, occular, interosseous, clavicle, etc.). Status Active Problem Recommendation Dietitian Recommend Regular (NICOLETTE), Gluten Free diet for allergies Recommendations/ and to liberalize the diet to promote oral intakes. Changes Will trial chocolate Magic Cup again with lunch and dinner. Will continue to follow, monitor oral intakes and modify nutrition interventions as needed. Lab / Micro Data 10/04/24 04:35 10/04/24 04:35 Labs: Laboratory Results - last 24 hr 10/05/24 07:07: Triglycerides 78, Cholesterol 173, LDL Cholesterol, Calc 49, VLDL Cholesterol 16, HDL Cholesterol 108, Cholesterol/HDL Ratio 1.60 Micro: Microbiology 10/03/24 20:30 Urine Catheter - Catheter Urine Culture - Final Aerococcus urinae Rhythm Strip Rhythm Strip: Sinus Rhythm Rate: 88 Ectopy: None Active Medications Active Medications Active Medications: Current Medications Generic Name Dose Route Start Last Admin Trade Name Freq PRN Reason Stop Dose Admin Acetaminophen 1,000 mg 10/04/24 06:00 10/05/24 06:08 Acetaminophen 500 Mg Tablet PO 1,000 mg Q8 BATSHEVA Administration Al Hydroxide/Mg Hydroxide 30 ml 10/04/24 02:53 Mag Hydrox/Al Hydrox/Simeth 30 Ml Udc PO Q6H PRN PRN Gastric Burning Ascorbic Acid 500 mg 10/04/24 10:00 10/05/24 10:14 Ascorbic Acid 500 Mg Tablet PO 500 mg DAILY BATSHEVA Administration Aspirin 81 mg 10/04/24 11:00 10/05/24 10:12 Aspirin 81 Mg Tab.Chew PO 81 mg DAILYCM BATSHEVA Administration Atorvastatin Calcium 40 mg 10/04/24 22:00 10/04/24 22:37 Atorvastatin Calcium 40 Mg Tablet PO 40 mg QHS BATSHEVA Administration Cholecalciferol 50 mcg 10/04/24 10:00 10/05/24 10:14 Cholecalciferol (Vit D3) 25 Mcg Tablet (1,000 Units) PO 50 mcg DAILY BATSHEVA Administration Docusate Sodium 100 mg 10/04/24 10:00 10/05/24 10:13 Docusate Sodium 100 Mg Capsule PO 100 mg DAILY BATSHEVA Administration Ferrous Sulfate 325 mg 10/04/24 12:00 10/04/24 11:40 Ferrous Sulfate 325 Mg Tablet PO 325 mg DAILY@1200 BATSHEVA Administration Furosemide 40 mg 10/05/24 10:00 10/05/24 10:13 Furosemide 40 Mg Tablet PO 40 mg DAILY BATSHEVA Administration Protocol Sodium Chloride 250 mls @ 15 mls/hr 10/04/24 02:54 IV .[id number] PRN Saline Flush Sodium Chloride 250 mls @ 15 mls/hr 10/04/24 02:54 IV .[id number] PRN Additional IVPB Infusion Losartan Potassium 100 mg 10/05/24 10:00 10/05/24 10:13 Losartan Potassium 100 Mg Tablet PO 100 mg DAILY BATSHEVA Administration Protocol Magnesium Chloride 128 mg 10/04/24 10:00 10/05/24 10:14 Magnesium Chloride 64 Mg Delay Rel.Tablet PO 128 mg DAILY BATSHEVA Administration Melatonin 3 mg 10/04/24 02:53 10/04/24 22:38 Melatonin 3 Mg Tablet PO 3 mg QHS PRN PRN Administration INSOMNIA Metoprolol Tartrate 100 mg 10/05/24 10:00 10/05/24 10:13 Metoprolol Tartrate 100 Mg Tablet PO 100 mg BID BATSHEVA Administration Protocol Ondansetron HCl 4 mg 10/04/24 02:53 Ondansetron 4 Mg/2 Ml Vial IV Q8H PRN PRN NAUSEA/VOMITING Ondansetron HCl 4 mg 10/04/24 21:52 Ondansetron Odt 4 Mg Tablet PO Q8H PRN PRN NAUSEA/VOMITING Pramipexole Dihydrochloride 0.75 mg 10/05/24 22:00 Pramipexole Di-Hcl 0.25 Mg Tablet PO QHS [facility] Sodium Chloride 10 - 40 ml 10/04/24 02:54 0.9% Saline Lock 10 Ml Syringe IV UD PRN SALINE FLUSH NIHSS NIHSS 1a. Level of Consciousness: 0 - Alert; keenly responsive 1b. LOC Questions: 0 - Answers BOTH questions correctly 1c. LOC Commands: 0 - Performs BOTH tasks correctly 2. Best Gaze: 0 - Normal 3. Visual: 0 - No visual loss 4. Facial Palsy: 0 - Normal symmetrical movements 5a. Left Arm: 0 - No drift; arm holds 90 (or 45) degrees for full 10 seconds 5b. Right Arm: 0 - No drift; arm holds 90 (or 45) degrees for full 10 seconds 6a. Left Le - No drift; leg holds 30-degree position for full 5 seconds 6b. Right Le - No drift; leg holds 30-degree position for full 5 seconds 7. Limb Ataxia: 0 - Absent 8. Sensory: 0 - Normal; no sensory loss 9. Best Language: 0 - No aphasia; normal 10. Dysarthria: 0 - Normal 11. Extinction and Inattention: 0 - No abnormality Total: 0
--- NOTE | 2024-10-05 13:08 | PCM.PN.HOSP ---
Reason for Visit Reason for Visit: Diagnoses Other chronic pain (10/04/24) Unspecified toxic encephalopathy (10/04/24) Unspecified sequelae of cerebral infarction (10/04/24) Dorsalgia, unspecified (10/04/24) Urinary tract infection, site not specified (10/04/24) Adverse effect of unspecified drugs, medicaments and biological substances, initial encounter (10/04/24) Unspecified fall, initial encounter (10/04/24) Patient's noncompliance with other medical treatment and regimen due to unspecified reason (10/04/24) Subjective Subjective Saw patient at bedside this morning. Patient was sitting up comfortably in bedside chair and appeared similar to yesterday. Remained alert and oriented x 3. Did state that she had some delusions overnight with some improvement in the severity from previous nights. Denied any weakness or numbness/tingling in her upper or lower extremities. Does note that she feels generally weaker than her normal. No other new concerns today. Objective Data Objective Data Vital Signs: Vital Signs Temp Pulse Resp BP Pulse Ox O2 Del Method 97.4 F L 85 14 148/59 H 93 Room Air 10/05/24 10:10 10/05/24 10:13 10/05/24 10:10 10/05/24 10:13 10/05/24 10:10 10/05/24 10:10 Oxygen Delivery Method Room Air Weight: 73.4 kg Body Mass Index (BMI) 31.6 Intake & Output: Intake and Output for Last 24 Hours 10/03/24 10/04/24 10/05/24 23:59 23:59 23:59 Intake Total 120 / 120 1880 / 1880 Output Total 240 / 240 350 / 550 600 / 600 Balance -120 / -120 1530 / 1330 -600 / -600 Medical Nutrition Assessment Dietitian: Malnutrition Criteria Met Start: 10/04/24 15:46 Freq: Status: Active Protocol: Document 10/04/24 15:46 [email or web address] (Rec: 10/04/24 15:46 [email or web address] [id number]) Nutrition Malnutrition Evidence of Yes Malnutrition Exists Malnutrition ( Chronic moderate): Evidenced By Suboptimal Energy Intake (Moderate),Weight Loss (Severe ),Physical Changes (Moderate) Clinical Problem Chronic Disease or Condition Related Malnutrition Etiology related to decreased appetite and oral intakes Signs/Symptoms as evidenced by significant weight loss of 7.4% or 12lb since 09/01/24 weight of 163lb, pt report of poor appetite and oral intakes x 7 months with suspected oral intakes meeting less than 75% of estimated nutrient needs and visual evidence of mild to moderate muscle and fat wasting (temples, occular, interosseous, clavicle, etc.). Status Active Problem Recommendation Dietitian Recommend Regular (NICOLETTE), Gluten Free diet for allergies Recommendations/ and to liberalize the diet to promote oral intakes. Changes Will trial chocolate Magic Cup again with lunch and dinner. Will continue to follow, monitor oral intakes and modify nutrition interventions as needed. Lab / Micro Data 10/04/24 04:35 10/04/24 04:35 Labs: Laboratory Results - last 24 hr 10/05/24 07:07: Triglycerides 78, Cholesterol 173, LDL Cholesterol, Calc 49, VLDL Cholesterol 16, HDL Cholesterol 108, Cholesterol/HDL Ratio 1.60 Micro: Microbiology 10/03/24 20:30 Urine Catheter - Catheter Urine Culture - Final Aerococcus urinae Rhythm Strip Rhythm Strip: Sinus Rhythm Rate: 88 Ectopy: None Physical Exam Const alert, oriented x3, no apparent distress and average body habitus Constitutional Narrative: Elderly female, mildly fatigued appearing but otherwise sitting up comfortably in bedside chair, conversing normally, in no acute distress. Stable. General Appearance: cooperative and comfortable HEENT normocephalic, head/scalp atraumatic, hearing grossly normal bilaterally, nasal mucous membranes and turbinates normal and moist oral mucous membranes Eyes PERRL, EOMs intact bilaterally and conjunctivae normal Neck full ROM Chest inspection of chest normal Resp normal respiratory effort, normal air movement, no use of accessory muscles and clear to auscultation bilaterally Cardio regular rate, regular rhythm, no murmurs and peripheral pulses 2+ throughout GI normal to inspection, nondistended, normoactive bowel sounds, soft to palpation, non-tender and non-distended Back/Spine normal ROM Extremity normal to inspection, full ROM and no pedal edema Skin no rashes or lesions noted Psych mental status grossly normal Assessment & Plan Assessment/Plan (1) Toxic encephalopathy: QUALIFIERS: Toxic encephalopathy cause: unspecified toxin Qualified Code(s): G92.9 - Unspecified toxic encephalopathy PLAN: Plan Patient is an 89-year-old female who presented to [facility] ED on 10/03/2024 with worsening confusion with weakness. 1. Acute toxic encephalopathy, improving ? Presented from home with worsening confusion with delirium. Lives at home alone. Notably much improved on hospital day 2 and alert and oriented x 3. Highest concern is encephalopathy secondary to high home dosage of pramipexole for RLS. Seems less likely that acute CVA is contributing but cannot rule this out. Patient is on 3 mg of pramipexole at night; no history of Parkinson's that is noted. It appears on chart review that she was on 1.5 mg at night as of a few months ago; unclear when the dosage was increased. Decreased back to 1.5 mg at night on 10/04; reported mild delusions overnight with some improvement from previous. Will decrease to 0.75 mg at night and continue to monitor closely. 2. Acute CVA; history of CVA with residual left-sided deficits, hypertension, hyperlipidemia ? Neurology consulted. Presented with worsening confusion with delirium as above. No new motor deficits noted. CT brain unremarkable. However, MRI brain showed an acute right punctate lacunar type infarction in the posterior right centrum. May have contributed to symptoms as above but this is unclear. Had borderline therapy scores as noted below but this is at her baseline. Appreciate neurology recommendations. Will continue to treat with home aspirin, statin, Lopressor, Lasix and losartan at this time. 3. Acute on chronic debility with recent fall at home ? PT/OT/case management following. Patient lives at home alone. Was discharged to SNF at [place] after recent hospitalization in late August. Therapy scores borderline here; will likely need either home with home health care versus SNF on discharge. 4. Chronic back pain ? On home hydrocodone?acetaminophen 7.5?325 mg up to 4 times daily as needed. Patient denies overuse of this medication but there is concern that this could be contributing to her encephalopathy as above. Will treat with scheduled Tylenol 1 g every 8 hours here and can consider adding p.o. Dilaudid as needed. Pain has been well-controlled since admission. 5. Restless leg syndrome ? On pramipexole at home. As noted above, had dosage increase from 1.5 to 3 mg at night at some point in the past few months for unclear reason. Notably recommended dosing for RLS is a maximum of 0.75 mg daily. Dosing can be higher for Parkinson's disease but patient has no Parkinson's diagnosis listed. Decreasing dosage as noted above. 6. Concern for UTI ? UA with 2+ bacteria but negative leukocyte esterase and negative nitrates. Urine culture growing 80-100,000 Aerococcus. Patient with no UTI symptoms and otherwise noninfectious appearing, will hold on any further antibiotics. 7. Chronic iron deficiency anemia ? Hemoglobin stable at baseline around 10-11 during hospitalization. Continue home iron supplement. DVT prophylaxis: Lovenox CODE STATUS: DNR CCA, DNI Expected disposition: Likely home with [facility], 1 to 2 days Total clinical time spent by myself addressing the patient's medical issues, reviewing all the data, and collaborating with patient's care team: 35 minutes. Charges/Coding Visit Charges Inpatient E&M: 41649 Subs Hosp L2
[2024-10-05] MEDS: Ferrous Sulfate 325 MG Tablet PO (13:38)
--- NOTE | 2024-10-05 14:13 | CASEMGMT ---
Discharge Planning Per [facility], pt receives SN/PT/OT. Cassandra Church DC Planning Asst
[2024-10-05] MEDS: Pramipexole Di-HCl 0.25 MG Tablet 0.75 MG PO (23:00)
[2024-10-06] VITALS (9 sets, daily range): BP systolic 136–188; BP diastolic 55–96; PULSE 63–77; RESP 14–18; TEMP 36.4–37.3; O2SAT 95–97; BMI 31.6; BMI 31.3
[2024-10-06] MEDS: Acetaminophen 500 MG Tablet 1000 MG PO ×3 (05:47→20:43)
[2024-10-06 06:05] LABS: Hematocrit 32.2 % (37-47); Hemoglobin 10.2 g/dL (12.0-15.0); Mean Corp Hgb Conc 31.7 g/dL (32-36); Mean Corpuscular Hgb 29.2 pg (27.0-32.0); Mean Corpuscular Volume 92.3 fL (81-99); Mean Platelet Vol. 9.5 fl (6.2-12.0); Platelet Count 329 K/mm3 (150-450); RBC Distribution Width CV 13.3 % (11.6-14.6); RBC Distribution Width SD 45.1 fl (35.1-43.9); Red Blood Count 3.49 M/mm3 (4.2-5.4); White Blood Count 7.6 K/mm3 (4.4-11.0)
[2024-10-06 06:29] LABS: Anion Gap 11 (5-15); BUN 18 mg/dL (4-19); Calcium,Total 7.9 mg/dL (7.6-11.0); Carbon Dioxide 24.8 mmol/L (21.0-32.0); Chloride 98 mmol/L (98-108); Creatinine, Serum 0.77 mg/dL (0.70-1.20); EST Glomerular Filtration Rate 74 (>60); Estimated Creatinine Clearance 43.29 ml/min (50-250); Glucose 98 mg/dL (70-99); Potassium 3.9 mmol/L (3.3-5.1); Sodium Level 134 mmol/L (133-145)
[2024-10-06] MEDS: Metoprolol Tartrate 100 MG Tablet PO ×2 (08:18→20:43)
[2024-10-06] MEDS: Aspirin 81 MG TAB.CHEW PO (08:18)
[2024-10-06] MEDS: Docusate Sodium 100 MG Capsule PO (08:18)
[2024-10-06] MEDS: Cholecalciferol (VIT D3) 25 MCG TABLET (1,000 UNITS) 50 MCG PO (08:18)
[2024-10-06] MEDS: Lactobacillis Acidophilus 1 CAP PO ×4 (08:18→20:44)
[2024-10-06] MEDS: Losartan Potassium 100 MG Tablet PO (08:19)
[2024-10-06] MEDS: Magnesium Chloride 64 MG Delay Rel.Tablet 128 MG PO (08:19)
[2024-10-06] MEDS: Furosemide 40 MG Tablet PO (08:19)
[2024-10-06] MEDS: Ascorbic Acid 500 MG Tablet PO (08:19)
[2024-10-06] MEDS: Ferrous Sulfate 325 MG Tablet PO (12:15)
--- NOTE | 2024-10-06 13:41 | CASEMGMT ---
Addendum entered by Toro Martinez 10/06/24 14:46: MINNIE reports that the pt is agreeable to a SNF stay and will qualify, insurance-[employer], on Friday after 3 inpt midnights. [facility] notified via TC. Original Note: RN AN to pt room at this time to discuss DC planning. This RN AN reviewed how the pt has been doing with therapy. Pt lives at home alone. Pt states that she does not have support at home until Friday through her daughter. However, pt is active with [facility]. Pt wishes to continue these services. [facility] notified via [employer] that pt is at the hospital under obs. JULIEN date is TBD. To follow. Pt also reports that she does not have a ride home today. This RN CM inquired if the pt could get in and out of a van independently for the [facility]. Pt states, I doubt it. Pt has a recent SNF stay at [facility]. Pt states that she does not want to go back to that SNF but may be interested in a different SNF for a short term rehab stay. MINNIE notified and plans to follow up with the pt. Care Management to follow.
--- NOTE | 2024-10-06 13:54 | PCM.PN.HOSP ---
Reason for Visit Reason for Visit: Diagnoses Other chronic pain (10/04/24) Unspecified toxic encephalopathy (10/04/24) Unspecified sequelae of cerebral infarction (10/04/24) Dorsalgia, unspecified (10/04/24) Urinary tract infection, site not specified (10/04/24) Adverse effect of unspecified drugs, medicaments and biological substances, initial encounter (10/04/24) Unspecified fall, initial encounter (10/04/24) Patient's noncompliance with other medical treatment and regimen due to unspecified reason (10/04/24) Subjective Subjective Saw patient at bedside this morning. Patient continued to appear fatigued but otherwise appears stable from yesterday. She reported sleeping well overnight and did not have any issues with restless legs. She denied any delusions overnight. Continues to feel generally weaker than her baseline but denies any focal weakness. No other new concerns today. Objective Data Objective Data Vital Signs: Vital Signs Temp Pulse Resp BP Pulse Ox O2 Del Method 97.5 F L 63 18 188/56 H 97 Room Air 10/06/24 08:16 10/06/24 09:28 10/06/24 08:16 10/06/24 08:18 10/06/24 08:16 10/06/24 08:30 Oxygen Delivery Method Room Air Weight: 72.8 kg Body Mass Index (BMI) 31.3 Intake & Output: Intake and Output for Last 24 Hours 10/04/24 10/05/24 10/06/24 23:59 23:59 23:59 Intake Total 1880 / 1880 650 / 650 Output Total 350 / 550 1900 / 1900 600 / 600 Balance 1530 / 1330 -1250 / -1250 -600 / -600 Medical Nutrition Assessment Dietitian: Malnutrition Criteria Met Start: 10/04/24 15:46 Freq: Status: Active Protocol: Document 10/04/24 15:46 VIJAYA (Rec: 10/04/24 15:46 [email or web address] [id number]) Nutrition Malnutrition Evidence of Yes Malnutrition Exists Malnutrition ( Chronic moderate): Evidenced By Suboptimal Energy Intake (Moderate),Weight Loss (Severe ),Physical Changes (Moderate) Clinical Problem Chronic Disease or Condition Related Malnutrition Etiology related to decreased appetite and oral intakes Signs/Symptoms as evidenced by significant weight loss of 7.4% or 12lb since 4/23/25 weight of 163lb, pt report of poor appetite and oral intakes x 7 months with suspected oral intakes meeting less than 75% of estimated nutrient needs and visual evidence of mild to moderate muscle and fat wasting (temples, occular, interosseous, clavicle, etc.). Status Active Problem Recommendation Dietitian Recommend Regular (NICOLETTE), Gluten Free diet for allergies Recommendations/ and to liberalize the diet to promote oral intakes. Changes Will trial chocolate Magic Cup again with lunch and dinner. Will continue to follow, monitor oral intakes and modify nutrition interventions as needed. Lab / Micro Data 10/06/24 05:16 10/06/24 05:16 Labs: Laboratory Results - last 24 hr 10/06/24 05:16: WBC 7.6, RBC 3.49 L, Hgb 10.2 L, Hct 32.2 L, MCV 92.3, MCH 29.2, MCHC 31.7 L, RDW Std Deviation 45.1 H, RDW Coeff of Tiffani 13.3, Plt Count 329, MPV 9.5, Sodium 134, Potassium 3.9, Chloride 98, Carbon Dioxide 24.8, Anion Gap 11, BUN 18, Creatinine 0.77, Estim Creat Clear Calc 43.29 L, Est GFR (MDRD) Non-Af 74, BUN/Creatinine Ratio 24.0 H, Glucose 98, Calcium 7.9 Micro: Microbiology 10/03/24 20:30 Urine Catheter - Catheter Urine Culture - Final Aerococcus urinae Rhythm Strip Rhythm Strip: Sinus Rhythm Rate: 88 Ectopy: None Physical Exam Const alert, oriented x3, no apparent distress and average body habitus Constitutional Narrative: Elderly female, mildly fatigued appearing but otherwise sitting up comfortably in bedside chair, conversing normally, in no acute distress. Stable. General Appearance: cooperative and comfortable HEENT normocephalic, head/scalp atraumatic, hearing grossly normal bilaterally, nasal mucous membranes and turbinates normal and moist oral mucous membranes Eyes PERRL, EOMs intact bilaterally and conjunctivae normal Neck full ROM Chest inspection of chest normal Resp normal respiratory effort, normal air movement, no use of accessory muscles and clear to auscultation bilaterally Cardio regular rate, regular rhythm, no murmurs and peripheral pulses 2+ throughout GI normal to inspection, nondistended, normoactive bowel sounds, soft to palpation, non-tender and non-distended Back/Spine normal ROM Extremity normal to inspection, full ROM and no pedal edema Skin no rashes or lesions noted Psych mental status grossly normal Assessment & Plan Assessment/Plan (1) Toxic encephalopathy: QUALIFIERS: Toxic encephalopathy cause: unspecified toxin Qualified Code(s): G92.9 - Unspecified toxic encephalopathy PLAN: Plan Patient is an 89-year-old female who presented to [facility] ED on 10/03/2024 with worsening confusion with weakness. 1. Acute toxic encephalopathy, improving ? Presented from home with worsening confusion with delirium. Lives at home alone. Notably much improved on hospital day 2 and alert and oriented x 3. Highest concern is encephalopathy secondary to high home dosage of pramipexole for RLS. Seems less likely that acute CVA is contributing but cannot rule this out. Patient is on 3 mg of pramipexole at night; no history of Parkinson's that is noted. It appears on chart review that she was on 1.5 mg at night as of a few months ago; unclear when the dosage was increased. Decreased back to 1.5 mg at night on 10/04; reported mild delusions overnight with some improvement from previous. Decreased to 0.75 mg at night on 10/05 and tolerated well. Will continue this dosing moving forward. 2. Acute CVA; recent history of CVA with resultant intracranial hemorrhage ? Neurology evaluated. Patient had an acute CVA with resultant right intracranial hemorrhage in April 2024. Has been off warfarin since then; was on warfarin for paroxysmal A-fib as noted below. Presented on this admission with worsening confusion with delirium as above. No new motor deficits noted. CT brain unremarkable. However, MRI brain showed an acute right punctate lacunar type infarction in the posterior right centrum. Per neurology, lesion is more consistent with acute ischemic stroke but cannot rule out embolic in setting of paroxysmal A-fib. However, patient wishes to continue with home baby aspirin and will not restart anticoagulation. Per neurology, can consider cardiology evaluation for possible Watchman device but patient noted that she does not believe she was a candidate for this in the recent past. Will continue to treat with home aspirin, statin, Lopressor, Lasix and losartan. 3. Acute on chronic debility with recent fall at home ? PT/OT/case management following. Patient lives at home alone. Was discharged to SNF at [place] after recent hospitalization in late August. Therapy scores borderline here; planning for either home with home health care or SNF on discharge, discussions ongoing with patient and family. 4. Paroxysmal A-fib ? Per history. Was previously on warfarin but this was discontinued in April due to her intracranial hemorrhage as noted above. Has been stable in normal sinus rhythm since admission. Continue home Lopressor and baby aspirin. 5. Chronic back pain ? On home hydrocodone?acetaminophen 7.5?325 mg up to 4 times daily as needed. Patient denies overuse of this medication but there is concern that this could be contributing to her encephalopathy as above. Continue treatment with scheduled Tylenol 1 g every 8 hours here and can consider adding p.o. Dilaudid as needed. Pain has been well-controlled since admission. 6. Restless leg syndrome ? On pramipexole at home. As noted above, had dosage increase from 1.5 to 3 mg at night at some point in the past few months for unclear reason. Notably recommended dosing for RLS is a maximum of 0.75 mg daily. Dosing can be higher for Parkinson's disease but patient has no Parkinson's diagnosis listed. Decreased dosage as noted above. 7. Concern for UTI ? UA with 2+ bacteria but negative leukocyte esterase and negative nitrates. Urine culture growing 80-100,000 Aerococcus. Patient with no UTI symptoms and otherwise noninfectious appearing, will hold on any further antibiotics. 8. Chronic iron deficiency anemia ? Hemoglobin stable at baseline around 10-11 during hospitalization. Continue home iron supplement. DVT prophylaxis: Lovenox CODE STATUS: DNR CCA, DNI Expected disposition: Home with HHC versus SNF, 1 to 2 days *Patient notably was admitted under observation status. However, given her acute stroke as above and persistent encephalopathy, will transition patient to inpatient status at this time. Total clinical time spent by myself addressing the patient's medical issues, reviewing all the data, and collaborating with patient's care team: 35 minutes. Charges/Coding Visit Charges Inpatient E&M: 77062 Subs Hosp L2
--- NOTE | 2024-10-06 14:41 | CASEMGMT ---
SW spoke with patient and let her know that she has been switched to inpatient. SW explained that therapy feels like she should go somewhere short term for rehab. Patient did not want to go to [place] (she was there recently), but she was open to [facility]. Patient declined a list of SNF's. SW made a referral to TCU and they can take patient. Patient asked SW to call her daughter and update her. SW called patient's daughter Janki and let her know patient was switched to inpatient. Patient was also agreeable to going to [facility] TCU. Janki thanked MINNIE for the update. MINNIE did mention to Janki that they should really consider termite exterminator placement for patient. Patient has been in and out of the hospital and has had the same difficulties (mixing up medications). Tammy Sorensen [employer]
[2024-10-06] MEDS: Atorvastatin Calcium 40 MG Tablet PO (20:43)
[2024-10-06] MEDS: Pramipexole Di-HCl 0.25 MG Tablet 0.75 MG PO (20:43)
[2024-10-06] MEDS: MELATONIN 3 MG TABLET PO (22:31)
[2024-10-07] VITALS (9 sets, daily range): BP systolic 124–163; BP diastolic 58–80; PULSE 67–92; RESP 14–18; TEMP 36.6–37.1; O2SAT 96–97; BMI 30.2
--- NOTE | 2024-10-07 01:53 | CPS ---
2115 10/06/24 placed pt on her home bipap unit with full face mask.
[2024-10-07] MEDS: MENTHOL 226.8 GM JAR 1 APPLIC TOPICAL (05:07)
[2024-10-07] MEDS: Acetaminophen 500 MG Tablet 1000 MG PO ×3 (05:07→21:27)
[2024-10-07] MEDS: Furosemide 40 MG Tablet PO (09:03)
[2024-10-07] MEDS: Docusate Sodium 100 MG Capsule PO (09:04)
[2024-10-07] MEDS: Metoprolol Tartrate 100 MG Tablet PO ×2 (09:04→21:26)
[2024-10-07] MEDS: Magnesium Chloride 64 MG Delay Rel.Tablet 128 MG PO (09:04)
[2024-10-07] MEDS: Aspirin 81 MG TAB.CHEW PO (09:04)
[2024-10-07] MEDS: Losartan Potassium 100 MG Tablet PO (09:04)
[2024-10-07] MEDS: Cholecalciferol (VIT D3) 25 MCG TABLET (1,000 UNITS) 50 MCG PO (09:04)
[2024-10-07] MEDS: Lactobacillis Acidophilus 1 CAP PO ×4 (09:04→21:27)
[2024-10-07] MEDS: Ascorbic Acid 500 MG Tablet PO (09:06)
--- NOTE | 2024-10-07 10:38 | PN.HOSP_ITS ---
Reason for Visit Reason for Visit: Diagnoses Other chronic pain (10/06/24) Unspecified toxic encephalopathy (10/06/24) Unspecified sequelae of cerebral infarction (10/06/24) Dorsalgia, unspecified (10/06/24) Urinary tract infection, site not specified (10/06/24) Adverse effect of unspecified drugs, medicaments and biological substances, initial encounter (10/06/24) Unspecified fall, initial encounter (10/06/24) Patient's noncompliance with other medical treatment and regimen due to unspecified reason (10/06/24) Subjective Subjective Saw patient at bedside this morning. Patient was sitting back comfortably in bedside chair and appeared similar to previous days. States that she did have difficulty sleeping due to restless leg syndrome overnight but has not had any delusions for the past few days. No other new concerns this morning. Objective Data Objective Data Vital Signs: Vital Signs Temp Pulse Resp BP Pulse Ox O2 Del Method 98.5 F 80 15 144/58 H 97 Room Air 10/07/24 08:00 10/07/24 09:04 10/07/24 08:00 10/07/24 08:00 10/07/24 08:00 10/07/24 08:00 Oxygen Delivery Method Room Air Weight: 70.3 kg Body Mass Index (BMI) 30.2 Intake & Output: Intake and Output for Last 24 Hours 10/05/24 10/06/24 10/07/24 23:59 23:59 23:59 Intake Total 650 / 650 Output Total 1900 / 1900 600 / 600 Balance -1250 / -1250 -600 / -600 Medical Nutrition Assessment Dietitian: Malnutrition Criteria Met Start: 10/04/24 15:46 Freq: Status: Active Protocol: Document 10/04/24 15:46 VIJAYA (Rec: 10/04/24 15:46 [id number]) Nutrition Malnutrition Evidence of Yes Malnutrition Exists Malnutrition ( Chronic moderate): Evidenced By Suboptimal Energy Intake (Moderate),Weight Loss (Severe ),Physical Changes (Moderate) Clinical Problem Chronic Disease or Condition Related Malnutrition Etiology related to decreased appetite and oral intakes Signs/Symptoms as evidenced by significant weight loss of 7.4% or 12lb since 09/01/24 weight of 163lb, pt report of poor appetite and oral intakes x 7 months with suspected oral intakes meeting less than 75% of estimated nutrient needs and visual evidence of mild to moderate muscle and fat wasting (temples, occular, interosseous, clavicle, etc.). Status Active Problem Recommendation Dietitian Recommend Regular (NICOLETTE), Gluten Free diet for allergies Recommendations/ and to liberalize the diet to promote oral intakes. Changes Will trial chocolate Magic Cup again with lunch and dinner. Will continue to follow, monitor oral intakes and modify nutrition interventions as needed. Lab / Micro Data 10/06/24 05:16 10/06/24 05:16 Micro: Microbiology 10/03/24 20:30 Urine Catheter - Catheter Urine Culture - Final Aerococcus urinae Rhythm Strip Rhythm Strip: Sinus Rhythm Rate: 88 Ectopy: None Physical Exam Const alert, oriented x3, no apparent distress and average body habitus Constitutional Narrative: Elderly female, mildly fatigued appearing but otherwise sitting up comfortably in bedside chair, conversing normally, in no acute distress. Stable. General Appearance: cooperative and comfortable HEENT normocephalic, head/scalp atraumatic, hearing grossly normal bilaterally, nasal mucous membranes and turbinates normal and moist oral mucous membranes Eyes PERRL, EOMs intact bilaterally and conjunctivae normal Neck full ROM Chest inspection of chest normal Resp normal respiratory effort, normal air movement, no use of accessory muscles and clear to auscultation bilaterally Cardio regular rate, regular rhythm, no murmurs and peripheral pulses 2+ throughout GI normal to inspection, nondistended, normoactive bowel sounds, soft to palpation, non-tender and non-distended Back/Spine normal ROM Extremity normal to inspection, full ROM and no pedal edema Skin no rashes or lesions noted Psych mental status grossly normal Assessment & Plan Assessment/Plan (1) Toxic encephalopathy: QUALIFIERS: Toxic encephalopathy cause: unspecified toxin Q ualified Code(s): G92.9 - Unspecified toxic encephalopathy PLAN: Plan Patient is an 89-year-old female who presented to [facility] ED on 10/03/2024 with worsening confusion with weakness. 1. Acute toxic encephalopathy, improving ? Presented from home with worsening confusion with delirium. Lives at home alone. Notably much improved on hospital day 2 and alert and oriented x 3. Highest concern is encephalopathy secondary to high home dosage of pramipexole for RLS. Seems less likely that acute CVA is contributing but cannot rule this out. Patient is on 3 mg of pramipexole at night; no history of Parkinson's that is noted. It appears on chart review that she was on 1.5 mg at night as of a few months ago; unclear when the dosage was increased. Decreased back to 1.5 mg at night on 10/04; reported mild delusions overnight with some improvement from previous. Decreased to 0.75 mg at night on 10/05 and tolerated well. Will continue this dosing moving forward. 2. Acute CVA; recent history of CVA with resultant intracranial hemorrhage ? Neurology evaluated. Patient had an acute CVA with resultant right intracranial hemorrhage in April 2024. Has been off warfarin since then; was on warfarin for paroxysmal A-fib as noted below. Presented on this admission with worsening confusion with delirium as above. No new motor deficits noted. CT brain unremarkable. However, MRI brain showed an acute right punctate lacunar type infarction in the posterior right centrum. Per neurology, lesion is more consistent with acute ischemic stroke but cannot rule out embolic in setting of paroxysmal A-fib. However, patient wishes to continue with home baby aspirin and will not restart anticoagulation. Per neurology, can consider cardiology evaluation for possible Watchman device but patient noted that she does not believe she was a candidate for this in the recent past. Will continue to treat with home aspirin, statin, Lopressor, Lasix and losartan. 3. Acute on chronic debility with recent fall at home ? PT/OT/case management following. Patient lives at home alone. Was discharged to SNF at [facility] after recent hospitalization in late August. Therapy scores borderline here; planning for SNF in [facility] TCU on discharge. Medically ready for discharge on 10/07, awaiting pre-CERT. 4. Paroxysmal A-fib ? Per history. Was previously on warfarin but this was discontinued in April due to her intracranial hemorrhage as noted above. Has been stable in normal sinus rhythm since admission. Continue home Lopressor and baby aspirin. 5. Chronic back pain ? On home hydrocodone?acetaminophen 7.5?325 mg up to 4 times daily as needed. Patient denies overuse of this medication but there is concern that this could be contributing to her encephalopathy as above. Continue treatment with scheduled Tylenol 1 g every 8 hours here and can consider adding p.o. Dilaudid as needed. Pain has been well-controlled since admission. 6. Restless leg syndrome ? On pramipexole at home. As noted above, had dosage increase from 1.5 to 3 mg at night at some point in the past few months for unclear reason. Notably recommended dosing for RLS is a maximum of 0.75 mg daily. Dosing can be higher for Parkinson's disease but patient has no Parkinson's diagnosis listed. Decreased dosage as noted above. 7. Concern for UTI ? UA with 2+ bacteria but negative leukocyte esterase and negative nitrates. Urine culture growing 80-100,000 Aerococcus. Patient with no UTI symptoms and otherwise noninfectious appearing, will hold on any further antibiotics. 8. Chronic iron deficiency anemia ? Hemoglobin stable at baseline around 10-11 during hospitalization. Continue home iron supplement. DVT prophylaxis: Lovenox CODE STATUS: DNR CCA, DNI Expected disposition: SNF, medically ready for discharge on 10/07, awaiting pre- CERT Total clinical time spent by myself addressing the patient's medical issues, reviewing all the data, and collaborating with patient's care team: 35 minutes. Charges/Coding Visit Charges Inpatient E&M: 68095 Subs Hosp L2
--- NOTE | 2024-10-07 11:09 | CASEMGMT ---
Social Work- SW spoke with pt dtr Janki to discuss discharge planning. SW introduced self and role. Pt dtr reports that her cousin is coming tomorrow to tour ALs in the area. Janki had questions regarding AL; SW provided education on payor sources, level of care, etc. Janki requested referral to [facility] in hopes of transitioning to AL following SNF stay. [facility] notified of referral request. Janki reports if [facility] is unable to accept, they would plan on TCU and an AL in [place]. [facility] remains availble to follow. LUIS Vo
--- NOTE | 2024-10-07 11:39 | CASEMGMT ---
Addendum entered by Cassandra Church 10/07/24 14:23: [facility] has accepted. Call placed to pts daughter (Janki) to update. Janki reports that her mother does not know that referral has been made to [facility] and that she and another family member plan to visit tomorrow around 3p to discuss option with pt. She asked that referral to TCU not be cancelled. She added that they are looking at another facility that may also be an option but it ended up being a stand along AL. Differences explained and she wishes to proceed with SNF after reviewing with pt tomorrow. Cassandra Church DC Planning Asst. Original Note: Discharge Planning Referral sent to [facility]. Cassandra Church DC Planning Asst.
[2024-10-07] MEDS: Ferrous Sulfate 325 MG Tablet PO (13:13)
--- NOTE | 2024-10-07 15:12 | CASEMGMT ---
Addendum entered by Cassandra Church 10/07/24 16:08: [facility] has accepted. Pts daughter (Janki) updated. Cassandra Church DC Planning Asst. Original Note: Discharge Planning Referral sent to [facility] at [facility]. Cassandra Church DC Planning Asst.
--- NOTE | 2024-10-07 17:40 | NURSING ---
Direct supervision with meals this shift. No coughing or swallow difficulty noted from this nurse or PATIENT REGISTRAR's. Will continue to monitor.
[2024-10-07] MEDS: Pramipexole Di-HCl 0.25 MG Tablet 0.75 MG PO (21:26)
[2024-10-07] MEDS: Atorvastatin Calcium 40 MG Tablet PO (21:27)
[2024-10-08] VITALS (8 sets, daily range): BP systolic 130–163; BP diastolic 54–70; PULSE 73–96; RESP 16–18; TEMP 36.4–36.7; O2SAT 96–97; BMI 29.5
[2024-10-08] MEDS: Acetaminophen 500 MG Tablet 1000 MG PO ×2 (05:03→14:11)
[2024-10-08 05:09] LABS: Hematocrit 35.4 % (37-47); Hemoglobin 11.3 g/dL (12.0-15.0); Mean Corp Hgb Conc 31.9 g/dL (32-36); Mean Corpuscular Hgb 28.8 pg (27.0-32.0); Mean Corpuscular Volume 90.1 fL (81-99); Mean Platelet Vol. 9.5 fl (6.2-12.0); Platelet Count 377 K/mm3 (150-450); RBC Distribution Width CV 13.4 % (11.6-14.6); RBC Distribution Width SD 44.8 fl (35.1-43.9); Red Blood Count 3.93 M/mm3 (4.2-5.4)
[2024-10-08 05:42] LABS: Anion Gap 13 (5-15); BUN 20 mg/dL (4-19); BUN/Creat Ratio 23.6 RATIO (10-20); Calcium,Total 8.3 mg/dL (7.6-11.0); Carbon Dioxide 21.3 mmol/L (21.0-32.0); Chloride 99 mmol/L (98-108); Creatinine, Serum 0.86 mg/dL (0.70-1.20); EST Glomerular Filtration Rate 65 (>60); Estimated Creatinine Clearance 39.07 ml/min (50-250); Glucose 120 mg/dL (70-99); Potassium 4.7 mmol/L (3.3-5.1); Sodium Level 132 mmol/L (133-145)
[2024-10-08 05:45] LABS: Scan Indicated on CBC? Y/N NO
[2024-10-08] MEDS: Aspirin 81 MG TAB.CHEW PO (08:43)
[2024-10-08] MEDS: Lactobacillis Acidophilus 1 CAP PO ×4 (08:43→21:41)
[2024-10-08] MEDS: Metoprolol Tartrate 100 MG Tablet PO ×2 (08:44→21:40)
[2024-10-08] MEDS: Losartan Potassium 100 MG Tablet PO (08:44)
[2024-10-08] MEDS: Furosemide 40 MG Tablet PO (08:44)
[2024-10-08] MEDS: Docusate Sodium 100 MG Capsule PO (08:44)
[2024-10-08] MEDS: Magnesium Chloride 64 MG Delay Rel.Tablet 128 MG PO (08:45)
[2024-10-08] MEDS: Cholecalciferol (VIT D3) 25 MCG TABLET (1,000 UNITS) 50 MCG PO (08:45)
[2024-10-08] MEDS: Ascorbic Acid 500 MG Tablet PO (08:45)
--- NOTE | 2024-10-08 11:52 | PCM.PN.HOSP ---
Reason for Visit Reason for Visit: Diagnoses Other chronic pain (10/06/24) Unspecified toxic encephalopathy (10/06/24) Unspecified sequelae of cerebral infarction (10/06/24) Dorsalgia, unspecified (10/06/24) Urinary tract infection, site not specified (10/06/24) Adverse effect of unspecified drugs, medicaments and biological substances, initial encounter (10/06/24) Unspecified fall, initial encounter (10/06/24) Patient's noncompliance with other medical treatment and regimen due to unspecified reason (10/06/24) Subjective Subjective Saw patient at bedside this morning. Patient was sitting back in bedside chair and appeared similar to previous days. She did report that she again did not get much sleep last night due to ongoing neuropathic pain in her right thigh area. She denied any worsening of restless leg syndrome and continues to deny delusions. No other new concerns this morning. Objective Data Objective Data Vital Signs: Vital Signs Temp Pulse Resp BP Pulse Ox O2 Del Method 97.9 F 80 16 142/61 H 96 Room Air 10/08/24 08:16 10/08/24 08:44 10/08/24 08:16 10/08/24 08:16 10/08/24 08:16 10/08/24 08:19 Oxygen Delivery Method Room Air Weight: 68.6 kg Body Mass Index (BMI) 29.5 Intake & Output: Intake and Output for Last 24 Hours 10/06/24 10/07/24 10/08/24 23:59 23:59 23:59 Intake Total 240 / 240 Output Total 600 / 600 Balance -600 / -600 240 / 240 Medical Nutrition Assessment Dietitian: Malnutrition Criteria Met Start: 10/04/24 15:46 Freq: Status: Active Protocol: Document 10/07/24 14:11 SB (Rec: 10/07/24 14:11 SB [id number]) Nutrition Malnutrition Evidence of Yes Malnutrition Exists Malnutrition ( Chronic moderate): Evidenced By Suboptimal Energy Intake (Moderate),Weight Loss (Severe ),Physical Changes (Moderate) Clinical Problem Chronic Disease or Condition Related Malnutrition Etiology related to decreased appetite and oral intakes Signs/Symptoms as evidenced by significant weight loss of 7.4% or 12lb x 1 month, PO meeting <75% of estimated nutrition needs x 7 months, visual evidence of mild to moderate muscle and fat wasting (temples, occular, interosseous, clavicle, etc.). Status Active Problem Recommendation Dietitian Adjust to liberal Regular, Gluten Free diet for Recommendations/ allergies per [employer] consistency/texture recommendations. Changes Continue chocolate magic cup with lunch and dinner. Will order chocolate or strawberry RUPERT TID with meals. Will continue to follow, monitor oral intakes and modify nutrition interventions as needed. Lab / Micro Data 10/08/24 04:41 10/08/24 04:41 Labs: Laboratory Results - last 24 hr 10/08/24 04:41: WBC 8.0, RBC 3.93 L, Hgb 11.3 L, Hct 35.4 L, MCV 90.1, MCH 28.8, MCHC 31.9 L, RDW Std Deviation 44.8 H, RDW Coeff of Tiffani 13.4, Plt Count 377, MPV 9.5, Sodium 132 L, Potassium 4.7, Chloride 99, Carbon Dioxide 21.3, Anion Gap 13, BUN 20 H, Creatinine 0.86, Estim Creat Clear Calc 39.07 L, Est GFR (MDRD) Non-Af 65, BUN/Creatinine Ratio 23.6 H, Glucose 120 H, Calcium 8.3 Micro: Microbiology 10/03/24 20:30 Urine Catheter - Catheter Urine Culture - Final Aerococcus urinae Rhythm Strip Rhythm Strip: Sinus Rhythm Rate: 88 Ectopy: None Physical Exam Const alert, oriented x3, no apparent distress and average body habitus Constitutional Narrative: Elderly female, mildly fatigued appearing but otherwise sitting up comfortably in bedside chair, conversing normally, in no acute distress. Stable. General Appearance: cooperative and comfortable HEENT normocephalic, head/scalp atraumatic, hearing grossly normal bilaterally, nasal mucous membranes and turbinates normal and moist oral mucous membranes Eyes PERRL, EOMs intact bilaterally and conjunctivae normal Neck full ROM Chest inspection of chest normal Resp normal respiratory effort, normal air movement, no use of accessory muscles and clear to auscultation bilaterally Cardio regular rate, regular rhythm, no murmurs and peripheral pulses 2+ throughout GI normal to inspection, nondistended, normoactive bowel sounds, soft to palpation, non-tender and non-distended Back/Spine normal ROM Extremity normal to inspection, full ROM and no pedal edema Skin no rashes or lesions noted Psych mental status grossly normal Assessment & Plan Assessment/Plan (1) Toxic encephalopathy: QUALIFIERS: Toxic encephalopathy cause: unspecified toxin Qualified Code(s): G92.9 - Unspecified toxic encephalopathy PLAN: Plan Patient is an 89-year-old female who presented to [facility] ED on 10/03/2024 with worsening confusion with weakness. 1. Acute toxic encephalopathy, improving ? Presented from home with worsening confusion with delirium. Lives at home alone. Notably much improved on hospital day 2 and alert and oriented x 3. Highest concern is encephalopathy secondary to high home dosage of pramipexole for RLS. Seems less likely that acute CVA is contributing but cannot rule this out. Patient is on 3 mg of pramipexole at night; no history of Parkinson's that is noted. It appears on chart review that she was on 1.5 mg at night as of a few months ago; unclear when the dosage was increased. Decreased back to 1.5 mg at night on 10/04; reported mild delusions overnight with some improvement from previous. Decreased to 0.75 mg at night on 10/05 and tolerated well. Will continue this dosing moving forward. 2. Acute CVA; recent history of CVA with resultant intracranial hemorrhage ? Neurology followed. Patient had an acute CVA with resultant right intracranial hemorrhage in April 2024. Has been off warfarin since then; was on warfarin for paroxysmal A-fib as noted below. Presented on this admission with worsening confusion with delirium as above. No new motor deficits noted. CT brain unremarkable. However, MRI brain showed an acute right punctate lacunar type infarction in the posterior right centrum. Per neurology, lesion is more consistent with acute ischemic stroke but cannot rule out embolic in setting of paroxysmal A-fib. However, patient wishes to continue with home baby aspirin and will not restart anticoagulation. Per neurology, can consider cardiology evaluation for possible Watchman device but patient noted that she does not believe she was a candidate for this in the recent past. Will continue to treat with home aspirin, statin, Lopressor, Lasix and losartan. 3. Acute on chronic debility with recent fall at home ? PT/OT/case management following. Patient lives at home alone. Was discharged to SNF at [facility] after recent hospitalization in late August. Therapy scores borderline here; planning for SNF in [facility] TCU on discharge. Medically ready for discharge on 10/07, awaiting pre-CERT. 4. Paroxysmal A-fib ? Per history. Was previously on warfarin but this was discontinued in April due to her intracranial hemorrhage as noted above. Has been stable in normal sinus rhythm since admission. Continue home Lopressor and baby aspirin. 5. Chronic back pain ? On home hydrocodone?acetaminophen 7.5?325 mg up to 4 times daily as needed. Patient denies overuse of this medication but there is concern that this could be contributing to her encephalopathy as above. Continue treatment with scheduled Tylenol 1 g every 8 hours here and can consider adding p.o. Dilaudid as needed. Pain has been well-controlled since admission. 6. Restless leg syndrome ? On pramipexole at home. As noted above, had dosage increase from 1.5 to 3 mg at night at some point in the past few months for unclear reason. Notably recommended dosing for RLS is a maximum of 0.75 mg daily. Dosing can be higher for Parkinson's disease but patient has no Parkinson's diagnosis listed. Decreased dosage as noted above. 7. Concern for UTI ? UA with 2+ bacteria but negative leukocyte esterase and negative nitrates. Urine culture growing 80-100,000 Aerococcus. Patient with no UTI symptoms and otherwise noninfectious appearing, will hold on any further antibiotics. 8. Chronic iron deficiency anemia ? Hemoglobin stable at baseline around 10-11 during hospitalization. Continue home iron supplement. DVT prophylaxis: Lovenox CODE STATUS: DNR CCA, DNI Expected disposition: SNF, medically ready for discharge on 10/07, awaiting pre-CERT Total clinical time spent by myself addressing the patient's medical issues, reviewing all the data, and collaborating with patient's care team: 35 minutes. Charges/Coding Visit Charges Inpatient E&M: 46656 Subs Hosp L2
[2024-10-08] MEDS: Ferrous Sulfate 325 MG Tablet PO (11:56)
--- NOTE | 2024-10-08 14:08 | CASEMGMT ---
Patient and family have chosen [facility] SNF. SW notified Angeli in TCU. SW completed a PASRR in [employer] system. Plan: d/c to [facility] under skilled level of care on a PASRR. Physicians will transport patient. Tammy TOVAR
[2024-10-08] MEDS: Atorvastatin Calcium 40 MG Tablet PO (21:41)
[2024-10-08] MEDS: Pramipexole Di-HCl 0.25 MG Tablet 0.75 MG PO (21:42)
[2024-10-08] MEDS: MENTHOL 226.8 GM JAR 1 APPLIC TOPICAL (21:47)
[2024-10-09] MEDS: HYDROCODONE/APAP 7.5-325/15ML 15 ML UDC PO (01:28)
[2024-10-09 01:38] VITALS: BP 158/86; PULSE 96; RESP 16; TEMP 36.4; O2SAT 96
[2024-10-09 06:00] VITALS: BMI 29.7
[2024-10-09 06:34] VITALS: BP 157/56; PULSE 78; RESP 16; TEMP 36.9; O2SAT 96
[2024-10-09 06:46] VITALS: BMI 29.7
[2024-10-09 09:22] VITALS: BP 123/43; PULSE 80; RESP 16; TEMP 37; O2SAT 97
[2024-10-09] MEDS: Aspirin 81 MG TAB.CHEW PO (09:28)
[2024-10-09] MEDS: Lactobacillis Acidophilus 1 CAP PO ×2 (09:28→12:34)
[2024-10-09] MEDS: Docusate Sodium 100 MG Capsule PO (09:28)
[2024-10-09 09:29] VITALS: PULSE 80
[2024-10-09] MEDS: Magnesium Chloride 64 MG Delay Rel.Tablet 128 MG PO (09:29)
[2024-10-09] MEDS: Ascorbic Acid 500 MG Tablet PO (09:29)
[2024-10-09] MEDS: Metoprolol Tartrate 100 MG Tablet PO (09:29)
[2024-10-09] MEDS: Cholecalciferol (VIT D3) 25 MCG TABLET (1,000 UNITS) 50 MCG PO (09:29)
[2024-10-09] MEDS: Furosemide 40 MG Tablet PO (09:29)
[2024-10-09] MEDS: Losartan Potassium 100 MG Tablet PO (09:29)
[2024-10-09] MEDS: Acetaminophen 325 MG Tablet 650 MG PO (09:39)
--- NOTE | 2024-10-09 09:57 | TREXTCAR_ITS ---
Diet Diet Order/Speech Therapy: INPATIENT Hospital Diet / Speech Therapy Order(s) 10/07/24 15:51 Diet: Regular - General Food consistency:: Easy to Chew Dietary Modifications:: Gluten Free Type of Dietary Supplement:: [place] Breakfast Diet Comments: Direct sup, meds whole in , chocolate magic cup w/ L & D, CB sahra/stw TID Routine Orders/Code Status Code Status: DNRCC-A (DO NOT INTUBATE) DC O2, CPAP, BIPAP needs Home O2 Discharge instructions: No Therapies Weight Bearing: Full weight bearing Physical Therapy: Eval and Treat Occupational Therapy: Eval and Treat Problem/Diagnosis (1) Toxic encephalopathy: Status: Acute Code(s): G92.9 - Unspecified toxic encephalopathy Plan Patient is an 89-year-old female who presented to [facility] ED on 10/03/2024 with worsening confusion with weakness. Hospital course as noted below. Patient discharged to SNF in stable condition on 10/09. 1. Acute toxic encephalopathy, improved ? Presented from home with worsening confusion with delirium. Lives at home alone. Notably much improved on hospital day 2 and alert and oriented x 3. Highest concern is encephalopathy secondary to high home dosage of pramipexole for RLS. Seems less likely that acute CVA is contributing but cannot rule this out. Patient is on 3 mg of pramipexole at night; no history of Parkinson's that is noted. It appears on chart review that she was on 1.5 mg at night as of a few months ago; unclear when the dosage was increased. Decreased back to 1.5 mg at night on 10/04; reported mild delusions overnight with some improvement from previous. Decreased to 0.75 mg at night on 10/05 and tolerated well. Will continue this dosing moving forward. 2. Acute CVA; recent history of CVA with resultant intracranial hemorrhage ? Neurology followed. Patient had an acute CVA with resultant right intracranial hemorrhage in April 2024. Has been off warfarin since then; was on warfarin for paroxysmal A-fib as noted below. Presented on this admission with worsening confusion with delirium as above. No new motor deficits noted. CT brain unremarkable. However, MRI brain showed an acute right punctate lacunar type infarction in the posterior right centrum. Per neurology, lesion is more consistent with acute ischemic stroke but cannot rule out embolic in setting of paroxysmal A-fib. However, patient wishes to continue with home baby aspirin and will not restart anticoagulation. Per neurology, can consider cardiology evaluation for possible Watchman device but patient noted that she does not believe she was a candidate for this in the recent past. Will continue to treat with home aspirin, statin, Lopressor, Lasix and losartan. 3. Acute on chronic debility with recent fall at home ? PT/OT/case management followed. Patient lives at home alone. Was discharged to SNF at [facility] after recent hospitalization in late August. Therapy scores borderline here. Medically ready for discharge on 10/07, discharged to SNF in stable condition on 10/09. 4. Paroxysmal A-fib ? Per history. Was previously on warfarin but this was discontinued in April due to her intracranial hemorrhage as noted above. Has been stable in normal sinus rhythm since admission. Continue home Lopressor and baby aspirin. 5. Chronic back pain ? On home hydrocodone?acetaminophen 7.5?325 mg up to 4 times daily as needed. Patient denies overuse of this medication but there is concern that this could be contributing to her encephalopathy as above. Will treat with Tylenol as needed and hydrocodone?acetaminophen nightly as needed for her pain going forward. 6. Restless leg syndrome ? On pramipexole at home. As noted above, had dosage increase from 1.5 to 3 mg at night at some point in the past few months for unclear reason. Notably recommended dosing for RLS is a maximum of 0.75 mg daily. Dosing can be higher for Parkinson's disease but patient has no Parkinson's diagnosis listed. Decreased dosage as noted above. 7. Concern for UTI ? UA with 2+ bacteria but negative leukocyte esterase and negative nitrates. Urine culture growing 80-100,000 Aerococcus. Patient with no UTI symptoms and otherwise noninfectious appearing, no need for antibiotics. 8. Chronic iron deficiency anemia ? Hemoglobin stable at baseline around 10-11 during hospitalization. Continue home iron supplement. Total clinical time spent by myself addressing the patient's medical issues, reviewing all the data, and collaborating with patient's care team: 35 minutes. Allergies/Procedures Done in Hospital Allergies cefazolin (From Ancef) Allergy (Severe, Verified 10/03/24 17:47) Swelling Thoat and mouth swelling silk Allergy (Intermediate, Verified 10/03/24 17:47) itching duloxetine (From Cymbalta) Allergy (Unknown, Verified 10/03/24 17:47) Hives shellfish derived Allergy (Unknown, Verified 10/03/24 17:47) Other Throat irritation beet (Beet) Allergy (Verified 10/03/24 17:47) Hives cantaloupe Allergy (Verified 10/03/24 17:47) Food Allergy HIVES eggplant Allergy (Verified 10/03/24 17:47) Hives Food Allergies: Uncoded Allergy (Verified 10/03/24 17:47) Itching fermented foods, concentrates levofloxacin (From Levaquin) Allergy (Verified 10/03/24 17:47) Unknown mold Allergy (Verified 10/03/24 17:47) NEEDS FOLLOW-UP Penicillins Allergy (Verified 10/03/24 17:47) Unknown tomato Allergy (Verified 10/03/24 17:47) Food Allergy wheat Allergy (Verified 10/03/24 17:47) Hives gabapentin (From Neurontin) Adverse Reaction (Verified 10/03/24 17:47) Other meloxicam (From Mobic) Adverse Reaction (Verified 10/03/24 17:47) Other oxycodone (From OxyIR) Adverse Reaction (Verified 10/03/24 17:47) Nausea risedronate sodium (From Actonel) Adverse Reaction (Verified 10/03/24 17:47) Other Procedures: EKG and - (CT brain/C-spine, CT chest, hip/pelvis x-ray, MRI brain) Type of Care/Length of Stay Estimated LOS: Convalescent Care Less Than 30 days Type of Care Needed: Skilled Rehab Potential: Fair Prognosis: Fair Additional Orders/Day of Discharge H&P will serve as current which was dated: 10/03/24 Day of Discharge: 10/09/24 Dietary and Speech Recommendations Dietitian Recommendations/Changes: Adjust to liberal Regular, Gluten Free diet for allergies per MEASURER consistency/texture recommendations. Continue chocolate magic cup with lunch and dinner. Will order chocolate or strawberry RUPERT TID with meals. Will continue to follow, monitor oral intakes and modify nutrition interventions as needed. Discharge Plan Admission Admit Date/Time: 10/06/24 14:26 Primary Reason for Your Visit: Confusion Attending Provider: Santino Haas Primary Care Provider: Hussein Swenson Consulting Providers: Juan José Suarez Discharge Orders/Prescriptions Prescriptions: New pramipexole 0.75 mg tablet 0.75 mg PO QHS Qty: 30 2RF Continued Prolia 60 mg/mL syringe 60 mg SC [id number] Patient Comments: due February Rx Instructions: due in february aspirin 81 mg tablet,chewable 1 tab PO DAILY metoprolol tartrate 100 mg Tablet 100 mg PO BID 30 Days Qty: 60 0RF losartan 100 mg Tablet 100 mg PO DAILY Qty: 0 0RF magnesium oxide 420 mg tablet 420 mg PO DAILY ascorbic acid (vitamin C) [C-500] 500 mg tablet 500 mg PO DAILY cholecalciferol (vitamin D3) 25 mcg (1,000 unit) capsule 2,000 unit PO DAILY rosuvastatin 20 mg tablet 20 mg PO QHS 30 Days Qty: 30 2RF amlodipine 10 mg Tablet 10 mg PO DAILY Qty: 0 0RF Rx Instructions: Hold for SBP less than 130 mmHg furosemide [Lasix] 40 mg tablet 40 mg PO DAILY ferrous sulfate [iron] 325 mg (65 mg iron) tablet 325 mg PO DAILY docusate sodium [Dulcolax Stool Softener (dss)] 100 mg capsule 100 mg PO DAILY Changed acetaminophen 500 mg Tablet 1,000 mg PO Q8H PRN PRN (Reason: pain) Qty: 0 0RF hydrocodone-acetaminophen 7.5-325 mg tablet 1 tab PO QHS PRN PRN (Reason: pain (scale score 4-6)) 7 Days Qty: 0 0RF Discontinued pramipexole 1 mg Tablet 3 mg PO QHS 30 Days Qty: 90 0RF Rx Instructions: Pramipexole and tramadol might make drowsiness worse therefore try to avoid together nitrofurantoin monohyd/m-cryst [Macrobid] 100 mg capsule 100 mg PO Q12H 5 Days Qty: 10 0RF Rx Instructions: must administer with a meal/food Referrals / Follow Up: Hussein Swenson MD [Primary Care Provider] - Disposition Disposition (needs filled in before D/C Order can be placed): [facility] (1) Toxic encephalopathy Qualifiers: Toxic encephalopathy cause: unspecified toxin Qualified Code(s): G92.9 - Unspecified toxic encephalopathy
--- NOTE | 2024-10-09 09:57 | PCM.DC.SUM ---
Providers Date of Admission: 10/03/24 Date of Discharge: 10/09/24 Primary Care Physician: Dr. Hussein Swenson MD Consultations 10/04/24 13:56 Teleneurology [Consult: Tele-Neurology] Routine Consulting Provider: [facility] Reason for Consult: acute CVA EMERGENT Consult: No MD Notified: Yes Date Notified: 10/04/24 Time Notified: 14:38 Method of Notification: [facility] Nursing Unit Staff Notify [facility] of Tele-Neurology Consult: Yes Reason For Visit: ACUTE TOXIC ENCEPHALOPATHY 2/2 ADR TO HYDROCODONE Diagnosis Discharge Diagnosis (1) Toxic encephalopathy: Status: Acute Code(s): G92.9 - Unspecified toxic encephalopathy Qualifiers: Toxic encephalopathy cause: unspecified toxin Qualified Code(s): G92.9 - Unspecified toxic encephalopathy Medications at Discharge Home Medications denosumab 60 mg/mL subcutaneous syringe (Prolia) 60 mg subcut [id number] osteoporosis 10/08/19 aspirin 81 mg chewable tablet 1 tab PO DAILY Heart health 05/16/24 losartan 100 mg tablet 100 mg PO DAILY #0 tabs 07/20/24 metoprolol tartrate 100 mg tablet 100 mg PO BID 30 days #60 tabs 07/20/24 ascorbic acid (vitamin C) 500 mg tablet (C-500) 500 mg PO DAILY supplement 08/30/24 cholecalciferol (vitamin D3) 25 mcg (1,000 unit) capsule 2,000 unit PO DAILY supplement 08/30/24 magnesium oxide 420 mg tablet 420 mg PO DAILY 08/30/24 rosuvastatin 20 mg tablet 20 mg PO QHS 1 month #30 tabs 08/31/24 amlodipine 10 mg tablet 10 mg PO DAILY #0 tabs 09/03/24 docusate sodium 100 mg capsule (Dulcolax Stool Softener (docusate)) 100 mg PO DAILY 10/03/24 ferrous sulfate 325 mg (65 mg iron) tablet (iron) 325 mg PO DAILY 10/03/24 furosemide 40 mg tablet (Lasix) 40 mg PO DAILY 10/03/24 acetaminophen 500 mg tablet 1,000 mg (2 x 500 mg) PO Q8H PRN PRN pain #0 tabs 10/09/24 hydrocodone 7.5 mg-acetaminophen 325 mg tablet 1 tab PO QHS PRN PRN pain (scale score 4-6) 7 days #0 tabs 10/09/24 pramipexole 0.75 mg tablet 0.75 mg PO QHS #30 tabs 10/09/24 Hospital Course Operations None Procedures EKG and - (CT brain/C-spine, CT chest, hip/pelvis x-ray, MRI brain) Summary of Care Provided Minutes Spent on Discharge: 35 Hospital Course: Patient is an 89-year-old female who presented to [facility] ED on 10/03/2024 with worsening confusion with weakness. Hospital course as noted below. Patient discharged to SNF in stable condition on 10/09. 1. Acute toxic encephalopathy, improved ? Presented from home with worsening confusion with delirium. Lives at home alone. Notably much improved on hospital day 2 and alert and oriented x 3. Highest concern is encephalopathy secondary to high home dosage of pramipexole for RLS. Seems less likely that acute CVA is contributing but cannot rule this out. Patient is on 3 mg of pramipexole at night; no history of Parkinson's that is noted. It appears on chart review that she was on 1.5 mg at night as of a few months ago; unclear when the dosage was increased. Decreased back to 1.5 mg at night on 10/04; reported mild delusions overnight with some improvement from previous. Decreased to 0.75 mg at night on 10/05 and tolerated well. Will continue this dosing moving forward. 2. Acute CVA; recent history of CVA with resultant intracranial hemorrhage ? Neurology followed. Patient had an acute CVA with resultant right intracranial hemorrhage in April 2024. Has been off warfarin since then; was on warfarin for paroxysmal A-fib as noted below. Presented on this admission with worsening confusion with delirium as above. No new motor deficits noted. CT brain unremarkable. However, MRI brain showed an acute right punctate lacunar type infarction in the posterior right centrum. Per neurology, lesion is more consistent with acute ischemic stroke but cannot rule out embolic in setting of paroxysmal A-fib. However, patient wishes to continue with home baby aspirin and will not restart anticoagulation. Per neurology, can consider cardiology evaluation for possible Watchman device but patient noted that she does not believe she was a candidate for this in the recent past. Will continue to treat with home aspirin, statin, Lopressor, Lasix and losartan. 3. Acute on chronic debility with recent fall at home ? PT/OT/case management followed. Patient lives at home alone. Was discharged to SNF at [facility] after recent hospitalization in late August. Therapy scores borderline here. Medically ready for discharge on 10/07, discharged to SNF in stable condition on 10/09. 4. Paroxysmal A-fib ? Per history. Was previously on warfarin but this was discontinued in April due to her intracranial hemorrhage as noted above. Has been stable in normal sinus rhythm since admission. Continue home Lopressor and baby aspirin. 5. Chronic back pain ? On home hydrocodone?acetaminophen 7.5?325 mg up to 4 times daily as needed. Patient denies overuse of this medication but there is concern that this could be contributing to her encephalopathy as above. Will treat with Tylenol as needed and hydrocodone?acetaminophen nightly as needed for her pain going forward. 6. Restless leg syndrome ? On pramipexole at home. As noted above, had dosage increase from 1.5 to 3 mg at night at some point in the past few months for unclear reason. Notably recommended dosing for RLS is a maximum of 0.75 mg daily. Dosing can be higher for Parkinson's disease but patient has no Parkinson's diagnosis listed. Decreased dosage as noted above. 7. Concern for UTI ? UA with 2+ bacteria but negative leukocyte esterase and negative nitrates. Urine culture growing 80-100,000 Aerococcus. Patient with no UTI symptoms and otherwise noninfectious appearing, no need for antibiotics. 8. Chronic iron deficiency anemia ? Hemoglobin stable at baseline around 10-11 during hospitalization. Continue home iron supplement. Total clinical time spent by myself addressing the patient's medical issues, reviewing all the data, and collaborating with patient's care team: 35 minutes. Physical Exam Const alert, oriented x3, no apparent distress and average body habitus Constitutional Narrative: Elderly female, mildly fatigued appearing but otherwise sitting up comfortably in bedside chair, conversing normally, in no acute distress. Stable. General Appearance: cooperative and comfortable HEENT normocephalic, head/scalp atraumatic, hearing grossly normal bilaterally, nasal mucous membranes and turbinates normal and moist oral mucous membranes Eyes PERRL, EOMs intact bilaterally and conjunctivae normal Neck full ROM Chest inspection of chest normal Resp normal respiratory effort, normal air movement, no use of accessory muscles and clear to auscultation bilaterally Cardio regular rate, regular rhythm, no murmurs and peripheral pulses 2+ throughout GI normal to inspection, nondistended, normoactive bowel sounds, soft to palpation, non-tender and non-distended Back/Spine normal ROM Extremity normal to inspection, full ROM and no pedal edema Skin no rashes or lesions noted Psych mental status grossly normal Medical Records Data Medical Nutrition Assessment Dietitian: Malnutrition Criteria Met Start: 10/04/24 15:46 Freq: Status: Active Protocol: Document 10/07/24 14:11 SB (Rec: 10/07/24 14:11 SB [id number]) Nutrition Malnutrition Evidence of Yes Malnutrition Exists Malnutrition ( Chronic moderate): Evidenced By Suboptimal Energy Intake (Moderate),Weight Loss (Severe ),Physical Changes (Moderate) Clinical Problem Chronic Disease or Condition Related Malnutrition Etiology related to decreased appetite and oral intakes Signs/Symptoms as evidenced by significant weight loss of 7.4% or 12lb x 1 month, PO meeting <75% of estimated nutrition needs x 7 months, visual evidence of mild to moderate muscle and fat wasting (temples, occular, interosseous, clavicle, etc.). Status Active Problem Recommendation Dietitian Adjust to liberal Regular, Gluten Free diet for Recommendations/ allergies per SEISMIC PROSPECTING OBSERVER consistency/texture recommendations. Changes Continue chocolate magic cup with lunch and dinner. Will order chocolate or strawberry RUPERT TID with meals. Will continue to follow, monitor oral intakes and modify nutrition interventions as needed. Weight / BMI Weight Weight: 69.2 kg Body Mass Index (BMI) 29.7 ABG / Lab / Microbiology Data 10/08/24 04:41 10/08/24 04:41 Microbiology: Microbiology 10/03/24 20:30 Urine Catheter - Catheter Urine Culture - Final Aerococcus urinae D/C Instructions DC O2, CPAP, BIPAP Needs Home O2 Discharge instructions: No Meaningful Use Info Meaningful Use Meaningful Use Diagnoses (Choose all that apply): None applicable Ischemic Stroke Statin Dosing Therapy Reference: STATIN DOSE THERAPY REFERENCE: * Patients > 75 years receive moderate or high dose statin therapy. * Patients 75 years or YOUNGER should receive HIGH intensity statin dose unless contraindicated. You will be required to document reason for non-treatment if statin daily dose does not meet guidelines. HIGH DOSE STATIN THERAPY DAILY Atorvastatin > than or = to 40 mg Rosuvastatin > than or = to 20 mg Amlodipine + Atorvastatin > than or = to 2.5/40 mg Ezetimibe + Simvastatin 10/80 mg Simvastatin 80mg Discharge Plan Admission Admit Date/Time: 10/06/24 14:26 Primary Reason for Your Visit: Confusion Attending Provider: Santino Haas Primary Care Provider: Hussein Swenson Consulting Providers: Juan José Suarez Discharge Orders/Prescriptions Prescriptions: New pramipexole 0.75 mg tablet 0.75 mg PO QHS Qty: 30 2RF Continued Prolia 60 mg/mL syringe 60 mg SC [id number] Patient Comments: due February Rx Instructions: due in february aspirin 81 mg tablet,chewable 1 tab PO DAILY metoprolol tartrate 100 mg Tablet 100 mg PO BID 30 Days Qty: 60 0RF losartan 100 mg Tablet 100 mg PO DAILY Qty: 0 0RF magnesium oxide 420 mg tablet 420 mg PO DAILY ascorbic acid (vitamin C) [C-500] 500 mg tablet 500 mg PO DAILY cholecalciferol (vitamin D3) 25 mcg (1,000 unit) capsule 2,000 unit PO DAILY rosuvastatin 20 mg tablet 20 mg PO QHS 30 Days Qty: 30 2RF amlodipine 10 mg Tablet 10 mg PO DAILY Qty: 0 0RF Rx Instructions: Hold for SBP less than 130 mmHg furosemide [Lasix] 40 mg tablet 40 mg PO DAILY ferrous sulfate [iron] 325 mg (65 mg iron) tablet 325 mg PO DAILY docusate sodium [Dulcolax Stool Softener (dss)] 100 mg capsule 100 mg PO DAILY Changed acetaminophen 500 mg Tablet 1,000 mg PO Q8H PRN PRN (Reason: pain) Qty: 0 0RF hydrocodone-acetaminophen 7.5-325 mg tablet 1 tab PO QHS PRN PRN (Reason: pain (scale score 4-6)) 7 Days Qty: 0 0RF Discontinued pramipexole 1 mg Tablet 3 mg PO QHS 30 Days Qty: 90 0RF Rx Instructions: Pramipexole and tramadol might make drowsiness worse therefore try to avoid together nitrofurantoin monohyd/m-cryst [Macrobid] 100 mg capsule 100 mg PO Q12H 5 Days Qty: 10 0RF Rx Instructions: must administer with a meal/food Referrals / Follow Up: Hussein Swenson MD [Primary Care Provider] - Disposition Disposition (needs filled in before D/C Order can be placed): [facility] Charges/Coding Visit Charges Inpatient E&M: 41510 Disch Hosp >30min
[2024-10-09 11:48] VITALS: BMI 29.7
[2024-10-09 11:50] VITALS: BMI 29.7
[2024-10-09] MEDS: Ferrous Sulfate 325 MG Tablet PO (12:34)
[2024-10-09 12:36] VITALS: BP 124/48; PULSE 68; RESP 16; TEMP 36.7; O2SAT 98
--- NOTE | 2024-10-09 12:51 | NURSING ---
Report called to Yessenia at [facility].
== END 2024-10-09 13:44 | disposition skilled nursing facility (03) | DRG 64 ==
LOC: ED 10-04 00:14 → PCU 10-04 02:19
PROVIDERS: Family Medicine; Admitting Provider Internal Medicine; Emergency Provider Emergency Medicine; PCP Family Medicine; Visit Provider Hospitalist
DX: I63.9 Cerebral infarction, unspecified (principal); G92.8 Other toxic encephalopathy; E44.0 Moderate protein-calorie malnutrition; N39.0 Urinary tract infection, site not specified; Z66 Do not resuscitate; G20.A1 Parkinson's disease without dyskinesia, without mention of fluctuations; J44.9 Chronic obstructive pulmonary disease, unspecified; D50.9 Iron deficiency anemia, unspecified; E89.0 Postprocedural hypothyroidism; I10 Essential (primary) hypertension; I48.0 Paroxysmal atrial fibrillation; G25.81 Restless legs syndrome; E78.5 Hyperlipidemia, unspecified; I87.2 Venous insufficiency (chronic) (peripheral); E66.3 Overweight; G89.29 Other chronic pain; R41.0 Disorientation, unspecified; M81.0 Age-related osteoporosis without current pathological fracture; Z79.2 Long term (current) use of antibiotics; Z79.82 Long term (current) use of aspirin; Z68.26 Body mass index [BMI] 26.0-26.9, adult; T42.8X5A Adverse effect of antiparkinsonism drugs and other central muscle-tone depressants, initial encounter; Y69 Unspecified misadventure during surgical and medical care; Z86.73 Personal history of transient ischemic attack (TIA), and cerebral infarction without residual deficits; Z88.8 Allergy status to other drugs, medicaments and biological substances; Z88.5 Allergy status to narcotic agent
CPT/HCPCS: 36415; 70450; 70551; 71250; 72125; 73502; 80048; 80053; 80061; 80307; 81001; 82077; 83735; 84100; 84443; 85025; 85027; 87077; 87086; 87088; 87811; 92523; 92526; 92610; 93005; 94668; 97110; 97116; 97162; 97166; 97530; 97535; 97802; 97803; 99283; J2185; A4216

== ENCOUNTER 2024-11-17 12:55 | Emergency (ER) | payer MEDICARE, BC, SELFPAY ==
[2024-11-17] VITALS (26 sets, daily range): BP systolic 122–157; BP diastolic 38–77; PULSE 71–93; RESP 11–25; TEMP 36.6; O2SAT 89–97; BMI 30.9
--- NOTE | 2024-11-17 13:24 | RAD_ITS ---
PROCEDURE: CHEST 1 VIEW (PORTABLE) 11/17/2024 REASON FOR EXAM: CHEST PAIN TECHNIQUE: Frontal view of the chest. COMPARISON: AP chest of 10/01/2024 RAD/Chest 1 View (Portable) IMPRESSION: Examination somewhat limited by hypoinflation, but no acute pneumonic process i s identified. No pleural effusion or pneumothorax is seen. The cardiomediastinal silhouette is stable, given differences in technique; no evidence of cardiomegaly. Deformity of the left humeral head and neck again seen, consistent with old hea led fracture. No acute osseous change is evident. Reading Location: [address]
--- NOTE | 2024-11-17 13:30 | EKG12_ITS ---
Test Reason : CP Blood Pressure : */* mmHG Vent. Rate : 79 BPM Atrial Rate : 79 BPM P-R Int : 176 ms QRS Dur : 120 ms QT Int : 408 ms P-R-T Axes : 35 -18 36 degrees QTcB Int : 467 ms Normal sinus rhythm Right bundle branch block Poor R-wave progression ; consider septal infarct, lead placement, or normal variant Abnormal ECG Confirmed by JAHAIRA URBAN, OTONIEL ([id number]), editor in chief SUDEEP GALLO ([id number]) on 11/18/2024 2:16:43 PM Referred By: Tylor Mcneal Confirmed By: OTONIEL CAMPO MD
[2024-11-17 13:53] LABS: Hematocrit 31.2 % (37-47); Hemoglobin 9.6 g/dL (12.0-15.0); Immature Granulocytes Count 0.060 X10^3/uL (0.0-0.0); Mean Corp Hgb Conc 30.8 g/dL (32-36); Mean Corpuscular Volume 92.3 fL (81-99); Mean Platelet Vol. 9.2 fl (6.2-12.0); NRBC Flagged by Analyzer 0 % (0-5); Platelet Count 401 K/mm3 (150-450); RBC Distribution Width CV 15.7 % (11.6-14.6); RBC Distribution Width SD 53.4 fl (35.1-43.9); Red Blood Count 3.38 M/mm3 (4.2-5.4); White Blood Count 8.3 K/mm3 (4.4-11.0)
--- NOTE | 2024-11-17 14:33 | ED.VIS.CHEST ---
HPI <Dr. Tylor Mcneal DO - Last Filed: 11/17/24 16:21> History of Present Illness Chief Complaint: Chest Pain Informant: patient Onset/Context/Timing Onset: Today Activity at onset: sudden Timing: Continuous Quality: Positive for Pressure Location: Substernal Worsened By: Nothing Relieved By: Nothing Associated Symptoms: Negative for Nausea, Vomiting, Diaphoresis, Dyspnea, Cough, Fever, Lightheadedness, Acid Reflux or Palpitations Narrative Narrative: Patient presents with chest pain that began today. Patient states it began this morning. Patient states it is over the substernal area. Patient states it feels like a band and pressure on her chest. Patient states nothing makes it better and nothing makes it worse. Patient admits to some increasing swelling of her legs. Patient denies any nausea or vomiting. Patient denies any shortness of breath or cough. Patient denies any lightheadedness or dizziness. CVD Risk Factors: Positive for Hypertension and Hypercholesterolemia; Negative for Diabetes, Family History 1' </=55 or Smoking PE Risk Factors: Negative for Recent Travel/Surgery, Recent Immobilization, Prior DVT or PE, Cancer or OCP + Smoking + >/=35 PFSH <Dr. Tylor Mcneal DO - Last Filed: 11/17/24 16:21> PFSH Medical History Chronic pain BiPAP (biphasic positive airway pressure) dependence Aphasia History of hemorrhagic cerebrovascular accident (CVA) with residual deficit Daytime somnolence Elevated PTHrP level Venous insufficiency of both lower extremities Cerebral amyloid angiopathy Hypothyroidism Hyperlipidemia Essential (primary) hypertension Hypertension Lumbar compression fracture Closed compression fracture of L2 vertebra COPD (chronic obstructive pulmonary disease) Wrist fracture, right Shoulder fracture, left Iron deficiency anemia Osteoporosis Vitamin D deficiency Hiatal hernia Restless legs History of stress test HTN (hypertension) Scarlet fever Sleep apnea Pulmonary hypertension Secondary pulmonary arterial hypertension Paroxysmal atrial fibrillation Incomplete right bundle branch block Obstructive sleep apnea Obesity Essential (primary) hypertension Multiple fractures of ribs, left side, initial encounter for closed fracture Hypertensive emergency Pneumonia Limb weakness Difficulty balancing Thyroid disease Migraines Fatigue Arthritis Community acquired pneumonia Home Medications ?Medication ?Instructions ?Recorded ?Last Taken ?Type denosumab 60 mg/mL subcutaneous 60 mg subcut [id number] osteoporosis 10/08/19 08/24/21 History syringe (Prolia) aspirin 81 mg chewable tablet 1 tab PO DAILY Heart health 05/16/24 05/30/24 History losartan 100 mg tablet 100 mg PO DAILY #0 tabs 07/20/24 Unknown Rx metoprolol tartrate 100 mg tablet 100 mg PO BID 30 days #60 tabs 07/20/24 Unknown Rx ascorbic acid (vitamin C) 500 mg 500 mg PO DAILY supplement 08/30/24 Unknown History tablet (C-500) cholecalciferol (vitamin D3) 25 2,000 unit PO DAILY supplement 08/30/24 Unknown History mcg (1,000 unit) capsule magnesium oxide 420 mg tablet 420 mg PO DAILY 08/30/24 Unknown History rosuvastatin 20 mg tablet 20 mg PO QHS 1 month #30 tabs 08/31/24 Unknown Rx amlodipine 10 mg tablet 10 mg PO DAILY #0 tabs 09/03/24 Unknown Rx docusate sodium 100 mg capsule 100 mg PO DAILY 10/03/24 Unknown History (Dulcolax Stool Softener (docusate)) ferrous sulfate 325 mg (65 mg 325 mg PO DAILY 10/03/24 Unknown History iron) tablet (iron) furosemide 40 mg tablet (Lasix) 40 mg PO DAILY 10/03/24 Unknown History acetaminophen 500 mg tablet 1,000 mg (2 x 500 mg) PO Q8H PRN 10/09/24 Unknown Rx PRN pain #0 tabs hydrocodone 7.5 mg-acetaminophen 1 tab PO QHS PRN PRN pain (scale 10/09/24 Unknown Rx 325 mg tablet score 4-6) 7 days #0 tabs pramipexole 0.75 mg tablet 0.75 mg PO QHS #30 tabs 10/09/24 Unknown Rx Allergy/AdvReac Type Severity Reaction Status Date / Time cefazolin (From Ancef) Allergy Severe Swelling Verified 10/03/24 17:47 silk Allergy Intermediate itching Verified 10/03/24 17:47 duloxetine (From Cymbalta) Allergy Unknown Hives Verified 10/03/24 17:47 shellfish derived Allergy Unknown Other Verified 10/03/24 17:47 beet (Beet) Allergy Hives Verified 10/03/24 17:47 cantaloupe Allergy Food Verified 10/03/24 17:47 Allergy eggplant Allergy Hives Verified 10/03/24 17:47 Food Allergies: Uncoded Allergy Itching Verified 10/03/24 17:47 levofloxacin (From Levaquin) Allergy Unknown Verified 10/03/24 17:47 mold Allergy NEEDS Verified 10/03/24 17:47 FOLLOW-UP Penicillins Allergy Unknown Verified 10/03/24 17:47 tomato Allergy Food Verified 10/03/24 17:47 Allergy wheat Allergy Hives Verified 10/03/24 17:47 gabapentin (From Neurontin) AdvReac Other Verified 10/03/24 17:47 meloxicam (From Mobic) AdvReac Other Verified 10/03/24 17:47 oxycodone (From OxyIR) AdvReac Nausea Verified 10/03/24 17:47 risedronate sodium (From AdvReac Other Verified 10/03/24 17:47 Actonel) Family History Other Cancer Diabetes Heart disease Surgical History H/O radiofrequency ablation (RFA) of nerve of lumbar spine History of kyphoplasty Hx of tonsillectomy H/O partial thyroidectomy History of appendectomy History of cholecystectomy Hx of bilateral cataract extraction History of thyroid surgery Hx of appendectomy History of tonsillectomy Hx of cholecystectomy History of thymectomy History of parathyroidectomy Social History adopted: No household members: none [facility] number of children: 2 current occupational status: retired current occupational exposures/hazards: No pets and animals: No leisure activities: reading and other history of recent travel: Yes (concert in [place]) Smoking Status: Never smoker alcohol intake: never substance use type: does not use caffeine: No ROS <Dr. Tylor Mcneal DO - Last Filed: 11/17/24 16:21> ROS ED Constitutional Constitutional ED: Denies chills or fever(s) Eyes Eyes: Reports diplopia; Denies blurry vision ENT ENT ED: Reports rhinorrhea; Denies sore throat Cardiovascular Cardiovascular: Reports chest pain; Denies palpitations Respiratory/Chest Respiratory/Chest: Denies cough or dyspnea Gastrointestinal Gastrointestinal: Denies nausea or vomiting Genitourinary Genitourinary ED: Denies dysuria or hematuria Musculoskeletal Musculoskeletal: Reports back pain; Denies neck pain Integumentary Denies abscess or rash Neurologic Neurologic: Denies headache(s) or weakness Allergic/Immunologic Allergic/Immunologic ED: Denies mouth swelling or urticaria EXAM <Dr. Tylor Mcneal, DO - Last Filed: 11/17/24 16:21> Physical Exam Const Vital Signs: 11/17/24 12:56 11/17/24 13:15 11/17/24 13:24 Temperature 97.9 F Temperature Source Oral Pulse Rate 87 77 Respiratory Rate 20 H 17 Blood Pressure 150/70 H Blood Pressure Mean 96 Pulse Ox 92 97 Oxygen Delivery Method Room Air Room Air 11/17/24 13:30 11/17/24 13:45 11/17/24 14:00 Temperature Temperature Source Pulse Rate 75 81 79 Respiratory Rate 17 22 H 21 H Blood Pressure 140/50 H 147/77 H 156/54 H Blood Pressure Mean 75 98 83 Pulse Ox Oxygen Delivery Method 11/17/24 14:15 11/17/24 14:30 11/17/24 14:45 Temperature Temperature Source Pulse Rate 75 71 76 Respiratory Rate 17 18 18 Blood Pressure 122/51 H 126/48 H 138/38 H Blood Pressure Mean 72 70 67 Pulse Ox 93 91 91 Oxygen Delivery Method 11/17/24 15:00 11/17/24 15:15 11/17/24 15:30 Temperature Temperature Source Pulse Rate 76 75 77 Respiratory Rate 17 25 H 16 Blood Pressure 134/45 H 143/46 H 136/48 H Blood Pressure Mean 71 72 72 Pulse Ox 93 89 93 Oxygen Delivery Method 11/17/24 15:45 11/17/24 16:00 11/17/24 16:15 Temperature Temperature Source Pulse Rate 75 74 81 Respiratory Rate 16 16 15 Blood Pressure 129/41 H 127/44 H 124/50 H Blood Pressure Mean 68 68 70 Pulse Ox 89 93 96 Oxygen Delivery Method 11/17/24 16:30 11/17/24 16:45 11/17/24 17:00 Temperature Temperature Source Pulse Rate 82 77 80 Respiratory Rate 17 16 16 Blood Pressure 131/44 H 136/44 H 140/47 H Blood Pressure Mean 69 71 73 Pulse Ox 93 91 94 Oxygen Delivery Method 11/17/24 17:15 11/17/24 17:30 11/17/24 17:45 Temperature Temperature Source Pulse Rate 81 86 81 Respiratory Rate 17 21 H 19 H Blood Pressure 136/40 H 134/50 H 144/46 H Blood Pressure Mean 68 75 75 Pulse Ox 91 91 91 Oxygen Delivery Method 11/17/24 18:00 Temperature Temperature Source Pulse Rate 79 Respiratory Rate 18 Blood Pressure 152/50 H Blood Pressure Mean 80 Pulse Ox 96 Oxygen Delivery Method Positive well nourished and well developed Constitutional Narrative: BMI is 31.0 General Appearance ED: well developed and NAD HEENT Reports moist mucous membranes normocephalic and atraumatic Neck supple and no JVD Resp normal respiratory effort and clear to auscultation bilaterally Cardio regular rate and regular rhythm GI soft to palpation, non-tender and non-distended Extremity General Extremety ED: Yes edema General Extremity: edema Neuro oriented x3, CN's II-XII intact bilaterally and no sensory deficits noted Sensorium / Orientation: awake and alert Motor Exam: strength 5/5 throughout Psych mental status grossly normal <Dr. Sanket Goff MD - Last Filed: 11/17/24 18:48> Physical Exam Const Vital Signs: 11/17/24 12:56 11/17/24 13:15 11/17/24 13:24 Temperature 97.9 F Temperature Source Oral Pulse Rate 87 77 Respiratory Rate 20 H 17 Blood Pressure 150/70 H Blood Pressure Mean 96 Pulse Ox 92 97 Oxygen Delivery Method Room Air Room Air 11/17/24 13:30 11/17/24 13:45 11/17/24 14:00 Temperature Temperature Source Pulse Rate 75 81 79 Respiratory Rate 17 22 H 21 H Blood Pressure 140/50 H 147/77 H 156/54 H Blood Pressure Mean 75 98 83 Pulse Ox Oxygen Delivery Method 11/17/24 14:15 11/17/24 14:30 11/17/24 14:45 Temperature Temperature Source Pulse Rate 75 71 76 Respiratory Rate 17 18 18 Blood Pressure 122/51 H 126/48 H 138/38 H Blood Pressure Mean 72 70 67 Pulse Ox 93 91 91 Oxygen Delivery Method 11/17/24 15:00 11/17/24 15:15 11/17/24 15:30 Temperature Temperature Source Pulse Rate 76 75 77 Respiratory Rate 17 25 H 16 Blood Pressure 134/45 H 143/46 H 136/48 H Blood Pressure Mean 71 72 72 Pulse Ox 93 89 93 Oxygen Delivery Method 11/17/24 15:45 11/17/24 16:00 11/17/24 16:15 Temperature Temperature Source Pulse Rate 75 74 81 Respiratory Rate 16 16 15 Blood Pressure 129/41 H 127/44 H 124/50 H Blood Pressure Mean 68 68 70 Pulse Ox 89 93 96 Oxygen Delivery Method 11/17/24 16:30 11/17/24 16:45 11/17/24 17:00 Temperature Temperature Source Pulse Rate 82 77 80 Respiratory Rate 17 16 16 Blood Pressure 131/44 H 136/44 H 140/47 H Blood Pressure Mean 69 71 73 Pulse Ox 93 91 94 Oxygen Delivery Method 11/17/24 17:15 11/17/24 17:30 11/17/24 17:45 Temperature Temperature Source Pulse Rate 81 86 81 Respiratory Rate 17 21 H 19 H Blood Pressure 136/40 H 134/50 H 144/46 H Blood Pressure Mean 68 75 75 Pulse Ox 91 91 91 Oxygen Delivery Method 11/17/24 18:00 Temperature Temperature Source Pulse Rate 79 Respiratory Rate 18 Blood Pressure 152/50 H Blood Pressure Mean 80 Pulse Ox 96 Oxygen Delivery Method <Dr. Tylor Mcneal DO - Last Filed: 11/17/24 16:21> Heart Score History: Slightly/Non-Suspicious ECG: Nonspecific Repolarization Age: >/= 65 years Risk Factors: 1 or 2 Risk Factors Score: 4 <Dr. Sanket Goff MD - Last Filed: 11/17/24 18:48> Heart Score Score: 4 MDM <Dr. Tylor Mcneal DO - Last Filed: 11/17/24 16:21> MDM MDM Narrative Medical decision making narrative: Differential diagnosis includes cardiac dysrhythmia, cardiac ischemia, congestive heart failure, pneumonia, bronchitis, gastroesophageal reflux disease, and musculoskeletal pain. EKG will be obtained to assess for cardiac dysrhythmia and cardiac ischemia. Chest x-ray will be obtained to assess for pneumonia and bronchitis. CBC will be obtained to assess for leukocytosis and anemia. Basic metabolic profile will be obtained to assess for electrolyte abnormality and renal function. BNP will be obtained to assess for congestive heart failure. High-sensitivity troponin will be obtained to assess for cardiac ischemia. 2-hour repeat high-sensitivity troponin will be obtained to assess for ongoing cardiac ischemia. History & Record Review Additional record(s) reviewed:: Prior outpatient record, Prior ED visit and Prior labs Lab Data Attestation: I reviewed the patient's lab results. Lab results narrative: CBC was reviewed. There is a mild anemia with a hemoglobin of 9.6 and hematocrit 31.2. Basic metabolic profile was reviewed and was essentially within normal limits. BNP was reviewed and was normal at 666. Initial high-sensitivity troponin was reviewed and was slightly elevated at 35. Labs: Laboratory Results - last 24 hr 11/17/24 11/17/24 11/17/24 13:20 15:19 17:32 WBC 8.3 RBC 3.38 L Hgb 9.6 L Hct 31.2 L MCV 92.3 MCH 28.4 MCHC 30.8 L RDW Std Deviation 53.4 H RDW Coeff of Tiffani 15.7 H Plt Count 401 MPV 9.2 Immature Gran % (Auto) 0.700 Neut % (Auto) 65.7 Lymph % (Auto) 21.5 Mcintosh % (Auto) 9.6 Eos % (Auto) 1.7 Baso % (Auto) 0.8 Absolute Neuts (auto) 5.4 Absolute Lymphs (auto) 1.78 Nucleated RBC % 0 Sodium 136 Potassium 4.7 Chloride 99 Carbon Dioxide 22.4 Anion Gap 14 BUN 19 Creatinine 0.92 Estim Creat Clear Calc 37.43 L Est GFR (MDRD) Non-Af 60 BUN/Creatinine Ratio 20.6 H Glucose 106 H Calcium 8.1 Troponin T High Sens 35 H D Troponin T Hi Sens 2 Hr 34 H Troponin T Hi Sens 4Hr 34 H NT pro BNP II 666 Radiography Diagnostic Testing: Clinical Impression(s) from Imaging Studies Chest X-Ray 11/17/24 13:24 IMPRESSION: Examination somewhat limited by hypoinflation, but no acute pneumonic process is identified. No pleural effusion or pneumothorax is seen. The cardiomediastinal silhouette is stable, given differences in technique; no evidence of cardiomegaly. Deformity of the left humeral head and neck again seen, consistent with old healed fracture. No acute osseous change is evident. Reading Location: [address] Portable 1 view chest x-ray was obtained. On my independent interpretation, lung aparicio are hypoinflated. There is normal cardiac silhouette. Bony thorax is normal. There is no acute process noted. Radiologist also interpreted the x-ray and agrees. EKG Initial EKG: Attestation: I personally reviewed and interpreted this EKG as follows: Interpretation: Sinus Rhythm (79), No Acute Injury Pattern and RBBB Comments: EKG was obtained. On my independent interpretation, it shows normal sinus rhythm with rate of 79. WA interval was normal at 176 ms. QRS interval was borderline at 120 ms. QTc interval was normal at 467 ms. There is borderline left axis deviation at -18. There is a right bundle branch block pattern noted. There are no acute ST or T wave changes noted. Prior EKG tracings: available for review Prior: Unchanged (10/03/2024) Treatment and Re-Evaluation :: Patient was not given aspirin due to history of hemorrhagic stroke and subarachnoid hemorrhage. <Dr. Sanket Goff MD - Last Filed: 11/17/24 18:48> [facility] Lab Data Labs: Laboratory Results - last 24 hr 11/17/24 11/17/24 11/17/24 13:20 15:19 17:32 WBC 8.3 RBC 3.38 L Hgb 9.6 L Hct 31.2 L MCV 92.3 MCH 28.4 MCHC 30.8 L RDW Std Deviation 53.4 H RDW Coeff of Tiffani 15.7 H Plt Count 401 MPV 9.2 Immature Gran % (Auto) 0.700 Neut % (Auto) 65.7 Lymph % (Auto) 21.5 Mcintosh % (Auto) 9.6 Eos % (Auto) 1.7 Baso % (Auto) 0.8 Absolute Neuts (auto) 5.4 Absolute Lymphs (auto) 1.78 Nucleated RBC % 0 Sodium 136 Potassium 4.7 Chloride 99 Carbon Dioxide 22.4 Anion Gap 14 BUN 19 Creatinine 0.92 Estim Creat Clear Calc 37.43 L Est GFR (MDRD) Non-Af 60 BUN/Creatinine Ratio 20.6 H Glucose 106 H Calcium 8.1 Troponin T High Sens 35 H D Troponin T Hi Sens 2 Hr 34 H Troponin T Hi Sens 4Hr 34 H NT pro BNP II 666 Radiography Diagnostic Testing: Clinical Impression(s) from Imaging Studies Chest X-Ray 11/17/24 13:24 IMPRESSION: Examination somewhat limited by hypoinflation, but no acute pneumonic process is identified. No pleural effusion or pneumothorax is seen. The cardiomediastinal silhouette is stable, given differences in technique; no evidence of cardiomegaly. Deformity of the left humeral head and neck again seen, consistent with old healed fracture. No acute osseous change is evident. Reading Location: [address] EKG Initial EKG: Comments: EKG was obtained. On my independent interpretation, it shows normal sinus rhythm with rate of 79. WA interval was normal at 176 ms. QRS interval was borderline at 120 ms. QTc interval was normal at 467 ms. There is borderline left axis deviation at -18. There is a right bundle branch block pattern noted. There are no acute ST or T wave changes noted. Patient had elevated troponins in the past. Delta is 0. At this point we will discharge patient home since she is comfortable. She would like to go home. Discharge Plan Triage Chief Complaint: Chest Pain ED Provider: Tylor Mcneal Dx/Rx/DC Orders Clinical Impression: Chest pressure, Obesity (BMI 30.0-34.9), NEL on CPAP, Incomplete right bundle branch block, Essential (primary) hypertension, Elevated troponin Instructions: ED Chest Pain, Uncertain Cause Prescriptions: No Action Prolia 60 mg/mL syringe 60 mg SC [id number] Patient Comments: due February Rx Instructions: due in february aspirin 81 mg tablet,chewable 1 tab PO DAILY metoprolol tartrate 100 mg Tablet 100 mg PO BID 30 Days Qty: 60 0RF losartan 100 mg Tablet 100 mg PO DAILY Qty: 0 0RF magnesium oxide 420 mg tablet 420 mg PO DAILY ascorbic acid (vitamin C) [C-500] 500 mg tablet 500 mg PO DAILY cholecalciferol (vitamin D3) 25 mcg (1,000 unit) capsule 2,000 unit PO DAILY rosuvastatin 20 mg tablet 20 mg PO QHS 30 Days Qty: 30 2RF amlodipine 10 mg Tablet 10 mg PO DAILY Qty: 0 0RF Rx Instructions: Hold for SBP less than 130 mmHg furosemide [Lasix] 40 mg tablet 40 mg PO DAILY ferrous sulfate [iron] 325 mg (65 mg iron) tablet 325 mg PO DAILY docusate sodium [Dulcolax Stool Softener (dss)] 100 mg capsule 100 mg PO DAILY pramipexole 0.75 mg tablet 0.75 mg PO QHS Qty: 30 2RF acetaminophen 500 mg Tablet 1,000 mg PO Q8H PRN PRN (Reason: pain) Qty: 0 0RF hydrocodone-acetaminophen 7.5-325 mg tablet 1 tab PO QHS PRN PRN (Reason: pain (scale score 4-6)) 7 Days Qty: 0 0RF Primary Care Provider: Hussein Swenson Referrals: Hussein Swenson MD [Primary Care Provider] - 3-5 Days Print Language: Ghanaian Disposition Disposition: Home, Self Care
[2024-11-17 15:00] LABS: Anion Gap 14 (5-15); BUN 19 mg/dL (4-19); BUN/Creat Ratio 20.6 RATIO (10-20); Calcium,Total 8.1 mg/dL (7.6-11.0); Carbon Dioxide 22.4 mmol/L (21.0-32.0); Chloride 99 mmol/L (98-108); Estimated Creatinine Clearance 37.43 ml/min (50-250); Glucose 106 mg/dL (70-99); Potassium 4.7 mmol/L (3.3-5.1); Pro- Brain NATRIURETIC PEPTIDE 666 pg/mL (<=1800); Troponin T High Sensitivity 35 ng/L (<=14)
[2024-11-17 16:44] LABS: Troponin T High Sens 2 HR 34 ng/L (<=14)
[2024-11-17 18:37] LABS: Troponin T High Sens 4 HR 34 ng/L (<=14)
== END 2024-11-17 20:25 | disposition home or self-care (01) ==
PROVIDERS: Emergency Provider Emergency Medicine; PCP Family Medicine; Referring Provider Emergency Medicine; Visit Provider Emergency Medicine
DX: R07.89 Other chest pain (principal); J44.9 Chronic obstructive pulmonary disease, unspecified; R79.89 Other specified abnormal findings of blood chemistry; I45.10 Unspecified right bundle-branch block; G47.33 Obstructive sleep apnea (adult) (pediatric); E66.9 Obesity, unspecified; Z68.31 Body mass index [BMI] 31.0-31.9, adult; I10 Essential (primary) hypertension; E78.00 Pure hypercholesterolemia, unspecified; R60.0 Localized edema; G89.29 Other chronic pain; E03.9 Hypothyroidism, unspecified; Z79.82 Long term (current) use of aspirin; Z79.899 Other long term (current) drug therapy
CPT/HCPCS: 71045; 80048; 83880; 84484; 85025; 93005; 99285; A4216

== ENCOUNTER → 2024-11-19 | Outpatient (CLI) | payer MEDICARE, BC, SELFPAY ==
[2024-11-19 13:12] LABS: Anion Gap 10 (5-15); BUN 15 mg/dL (4-19); BUN/Creat Ratio 18.4 RATIO (10-20); Calcium,Total 8.3 mg/dL (7.6-11.0); Carbon Dioxide 26.0 mmol/L (21.0-32.0); Chloride 98 mmol/L (98-108); Glucose 108 mg/dL (70-99); Potassium 4.5 mmol/L (3.3-5.1); Pro- Brain NATRIURETIC PEPTIDE 628 pg/mL (<=1800)
== END | disposition home or self-care (01) ==
LOC: LAB 11:28
PROVIDERS: PCP Family Medicine; Referring Provider Nurse Practitioner Gerontology; Visit Provider Nurse Practitioner Gerontology
DX: R06.02 Shortness of breath (principal)
CPT/HCPCS: 36415; 80048; 83880

== ENCOUNTER → 2025-01-25 | Outpatient (REF) | payer MEDICARE, BC, SELFPAY ==
[2025-01-25 08:12] LABS: Anion Gap 11 (5-15); BUN 25 mg/dL (4-19); BUN/Creat Ratio 25.1 RATIO (10-20); Calcium,Total 9.1 mg/dL (7.6-11.0); Carbon Dioxide 25.9 mmol/L (21.0-32.0); Chloride 101 mmol/L (98-108); Glucose 106 mg/dL (70-99); Potassium 4.3 mmol/L (3.3-5.1)
== END ==
PROVIDERS: PCP Family Medicine; Visit Provider Family Medicine
DX: I10 Essential (primary) hypertension (principal); J44.9 Chronic obstructive pulmonary disease, unspecified; E03.9 Hypothyroidism, unspecified; E78.5 Hyperlipidemia, unspecified; G25.81 Restless legs syndrome; D50.9 Iron deficiency anemia, unspecified; Z79.899 Other long term (current) drug therapy
CPT/HCPCS: 36415; 80048

== ENCOUNTER → 2025-01-28 05:00 | Outpatient (REF) | payer MEDICARE, BC, SELFPAY ==
--- OUTSIDE RECORDS SUMMARY | 2025-01-28 04:08 | XMS RPT_ITS | CCD ---
Author Organization [facility] Care Team Providers Care Business And Financial Counsel Name Role Phone Starla PRICE, Yenny Oviedo Unavailable [phone] MD Abby, Evin Hernandez Unavailable Starla PRICE, Yenny Oviedo Unavailable [phone] Dr. Doyle Swenson Primary Care Provider Dr. Doyle Swenson Referring Provider Dr. Evin Mora Attending Provider Dr. Scooby Mobley Emergency Provider Dr. Hood Maza Admit Provider Dr. Hood Maza Attending Provider Dr. Hood Maza Other Provider Dr. Hood Maza Referring Provider Friend, Dr. Garcia Attending Provider Dr. Doyle Swenson Primary Care Provider Dr. Doyle Swenson Referring Provider Adriana MANAGER PHP, MANAGER PHP-Jing Lombardi Attending Provider Dr. Doyle Swenson Primary Care Provider [phone] Francy MANAGER PHP, MANAGER PHP-Jing Arce Attending Provider Dr. Doyle Swenson Primary Care Provider Dr. Doyle Swenson Referring Provider Adriana MANAGER PHP, MANAGER PHP-C Nallely Lombardi Attending Provider [phone] Dr. Tylor Hendrickson Emergency Provider Agyeponhola, Dr. Richy Sherwoodit Provider Agyejosh, Dr. Lockhart Attending Provider AgDr. Richy yusuf Other Provider Dr. Nichole Abarca Attending Provider Dr. Nichole Abarca Other Provider Dr. Juan José Evans Attending Provider Unavailable Nathan, Dr. Can Other Provider Unavailable Dr. Tylor Fang Attending Provider [phone] Doyle Swenson Primary Care Provider [phone] Dr. Doyle Swenson Referring Provider Adriana MANAGER PHP, MANAGER PHP-C Nallely Lombardi Attending Provider [phone] [facility] MANAGER PHP, MANAGER PHP-C Tarik Arce Attending Provider Dr. Tylor Hendrickson Emergency Provider Agyeponhola, Dr. Richy Lopez Provider Agyejosh, Dr. Lockhart Attending Provider Agyeponhola, Dr. Lockhart Other Provider TerDr. Nichole chakraborty Attending Provider Dr. Nichole Abarca Other Provider Dr. Juan José Evans Attending Provider Unavailable Nathan, Dr. Can Other Provider Unavailable Dr. Tylor Fang Attending Provider Dr. Aleks Marshall Chi Referring Provider Dr. Doyle Swenson Primary Care Provider Dr. Doyle Swenson Referring Provider Dr. Diana Snow Emergency Provider Barbara, Dr. Fely Liriano Attending Provider Dr. Fely Jimenez Other Provider Dr. Vito Hunter Other Provider Dr. Hood Maza Attending Provider Dr. Hood Maza Other Provider Dr. Doyle Swenson Primary Care Provider Tickchristi MANAGER PHP, MANAGER PHP-C Richa Attending Provider Dr. Doyle Ortega Primary Care Provider Dr. Tylor Hendrickson Emergency Provider Phyllis, Dr. Lockhart Admit Provider Phyllis, Dr. Lockhart Attending Provider Dr. Richy Ferguson Other Provider Dr. Nichole Abarca Attending Provider Dr. Nichole Abarca Other Provider Dr. Juan José Evans Attending Provider Unavailable Nathan, Dr. Can Other Provider Unavailable Dr. Tylor Fang Attending Provider Dr. Aleks Marshall Chi Referring Provider Dr. Diana Snow Emergency Provider Dr. Fely Jimenez Attending Provider Barbara, Dr. Fely Liriano Other Provider Dr. Vito Hunter Other Provider Dr. Hood Maza Attending Provider Dr. Hood Maza Other Provider Tickchristi MANAGER PHP, MANAGER PHP-C Richa Attending Provider Dr. Doyle Ortega Primary Care Provider Tickton MANAGER PHP, MANAGER PHP-C Richa Attending Provider Dr. Doyle Ortega Primary Care Provider Dr. Evin Mora Attending Provider Dr. Doyle Swenson Referring Provider Dr. Doyle Swenson Primary Care Provider Dr. Evin Mora Attending Provider Dr. Doyle Swenson Referring Provider Dr. Bridget Swenson Primary Care Provider Dr. Tylor Fang Attending Provider DUGLAS KIM Attending Unavailable DUGLAS KIM Admitting Unavailable TYLOR HENDRICKSON Referring Unavailable Bridget Swenson MD Primary Care Provider Mary Thorpe MD, PhD, Cari Unavailable JESSA RETANA Attending Unavailable BRIDGET SWENSON Primary Care Unavailabl e BRIDGET SWENSON Primary Care Unavailabl e AYAZ DOE Admitting Unavailable WALLY ZIEGLER Attending Unavailable GILL ADORNO Consulting Unavailable Leela URBAN, Dr. Savage Primary Care Provider Dr. Vinayak Mendenhall MD Attending Provider Dr. Vinayka Mendenhall MD Referring Provider Dr. Tylor Fang MD Attending Provider [phone] Bridget Swenson MD Attending Provider Dr. Bridget Swenson MD Referring Provider [phone] Dr. Tylor Hendrickson DO Attending Provider Dr. Tylor Hendrickson DO Emergency Provider Rolando URBAN, Dr. Aleks West Admit Provider Rolando URBAN, Dr. Aleks West Other Provider Dr. Joyce Rousseau DO Attending Provide r Onelia SIMMONS, Dr. Joyce Thornton Other Provider Rolando URBAN, Dr. Aleks West Attending Provider Rolando URBAN, Dr. Aleks West Referring Provider Dr. Horace Horta DO Attending Provider [phone] Mychal SIMMONS, Dr. Vu Emergency Provider Rolando SIMMONS, Dr. Juan José Green Other Provider Yamilka URBAN, Dr. Damon Other Provider Ginny URBAN, Dr. Wilkinson Other Provider Mingo MANAGER PHP-C, Sofia Other Provider Unavailabl e Lizzette MANAGER PHP-C, Monik Other Provider [phone] Min PA, Nelsy Other Provider Leela URBAN, Dr. Savage Primary Care Provider Leoncio URBAN, Dr. Snider Attending Provider Leela URBAN, Dr. Savage Attending Provider Leela URBAN, Dr. Savage Referring Provider [facility] MANAGER PHP-C, Tarik Attending Provider Mary Jane SIMMONS, Dr. Salazar Emergency Provider Raymundo URBAN, Dr. Rich Admit Provider Raymundo URBAN, Dr. Rich Attending Provider Leela URBAN, Dr. Savage Primary Care Provider Rolando URBAN, Dr. Aleks West Admit Provider Rolando URBAN, Dr. Aleks West Referring Provider Raymundo URBAN, Dr. Rich Other Provider Steph URBAN, Ayesha Other Provider Unavailable Catrina URBAN, Dr. Evangelista Other Provider [phone] Mary Montalvo MD Other Provider Unavailable Dr. Clementine Martel DO Other Provider Emily URBAN, Dr. Olea Other Provider [phone] Adarsh URBAN, Dr. Ayoub Other Provider Otilio URBAN, Dr. Aponte Other Provider Jonathan URBAN, Dr. Jones Other Provider Josemanuel URBAN, Dr. Page Other Provider Ephraim URBAN, Dr. Lopez Other Provider Andres URBAN, Rola Other Provider Rafi URBAN, Dr. Albarado Other Provider Dioni URBAN, Dr. Desai Other Provider Berna URBAN, Dr. Valverde Other Provider Dhara URBAN, Dr. Lizeth Tabor Other Provider Francis URBAN, Dr. Thompson Other Provider Julian URBAN, Dr. Way Other Provider Loida URBAN, Dr. Nur Other Provider Jose Raul URBAN, Dr. Nicole Other Provider Unavailable Colby URBAN, José Miguel Other Provider Unavailable Nate URBAN, Dr. Soto Attending Provider Abby URBAN, Dr. Cleary Attending Provider Nate URBAN, Dr. Soto Other Provider [phone] Scooby Mobley DO Emergency Provider Dr. Juan José Suarez DO Admit Provider Unavail able Dr. Juan José Suarez DO Other Provider Unavail able Zackary Lyon MD Attending Provider Unavaila Dr. Diana Love DO Emergency Provider Dr. Juan José Suarez DO Attending Provider Unav ailable Zackary Lyon MD Referring Provider Unavaila Dr. Ayza Ruelas DO Attending Provider Dr. Santino Haas DO Attending Provider Dr. Santino Haas DO Other Provider Generic Provider , No Assigned Pcp Primary Car e Provider Unavailable Bridget Swenson MD Primary Care Provide r Unavailable Primary Care Provider Unavailabl Dr. Bridget Serrano MD Primary Care Provider Rolando URBAN, Dr. Aleks West Admit Provider Rolando URBAN, Dr. Aleks West Attending Provider Leela URBAN, Dr. Savage Referring Provider Meenakshi FRANKS-CRicha Attending Provider Sonali URBAN, Dr. Raymundo Attending Provider NICHOLE GUERRA Attending Unavailable KAMILAHCOMANCHE, BRIDGET [facility] Primary Care Unavail able Elizabet SIMMONS, Dr. Snider Referring Provider Elizabet SIMMONS, Dr. Snider Emergency Provider Sina FRANKS-C, Sho Attending Provider Leela URBAN, Dr. Savage Primary Care Provider Elizabet SIMMONS, Dr. Snider Attending Provider Leela URBAN, Dr. Savage Referring Provider Sian MANAGER PHP-C, Sho Referring Provider Charles Sullivan Attending Unavailable [place], Dow Primary Care Unavailable Juan José Suarez Consulting Unavailable Juan José Suarez Admitting Unavailable Charles Sullivan Consulting Unavailable Ran[facility], [facility] Unavailable Tylor Fang Attending Unavailable Rolando, Aleks Chi Referring Unavailable Vinayak Mendenhall Referring Unavailable Tylor Fang Attending Unavailable Ran[facility], [facility] Unavailable Ran[facility], [facility] Primary Care Unavailable Evin Mora Attending Unavailable Joyce Rousseau Attending Unavaila ble Rolando, Aleks Chi Admitting Unavailable Rolando, Aleks Chi Consulting Unavailable Ranney, Christopher Primary Care Unavailable Roof MANAGER PHP, Tarik H Referring Unavailable Roof MANAGER PHP, Tarik H Attending Unavailable Ranney, [facility] Primary Care Unavailable Ranney, Christopher Primary Care Unavailable Juan José Marshall Consulting Unavailable Rolando, Aleks Chi Admitting Unavailable Rolando, Aleks Chi Attending Unavailable Marisol Prather Consulting Unavailable Gross Jaja Consulting Unavailable Mingo, Sofia Consulting Unavailable Lizzette MANAGER PHP, Monik Consulting Unavailable Masci, Nelsy Consulting Unavailable Ranney, Christopher Primary Care Unavailable Rolando, Aleks Chi Attending Unavailable Rolando, Aleks Chi Referring Unavailable Rolando, Aleks Chi Attending Unavailable Ran[facility], [facility] Primary Care Unavailable Rolando, Aleks Chi Referring Unavailable SemenJoyce urbina Attending Unavaila ble Rolando, Aleks Chi Consulting Unavailable Ranney, [facility] Primary Care Unavailable Rolando, Aleks Chi Admitting Unavailable Onelia, Joyce Thornton Consulting Unavaila Juan José Olivia Admitting Unavailable Juan José Suarez Consulting Unavailable Santino Haas Attending Unavailable Ranney, [facility] Primary Care Unavailable Santino Haas Consulting Unavailable Ayesha Choi Consulting Unavailable Ranney, [facility] Primary Care Unavailable Craig, Layla Admitting Unavailable Nate, Charles Attending Unavailable Adeli, Amir Consulting Unavailable Hinduja, Mary Consulting Unavailable Delnote, Clementine Consulting Unavailable Zha, Emmie Consulting Unavailable Adarsh, Mega Consulting Unavailable Otilio, Fay Consulting Unavailable Robert Castillo Consulting Unavailable Camilo Abernathy Consulting Unavailable John Ye Consulting Unavailable Rola Campos Consulting Unavailable Gertrudis Mckee Consulting Unavailable Giselle Wheatley Consulting Unavailable Abram Coronel Consulting Unavailable Lizeth Jules Consulting UnavailDuglas Ware Consulting Unavailable Rayna Jordan Consulting Unavailable Boom Mariscal Consulting Unavailable Bonnie Blunt Consulting Unavailable José Miguel Bowman Consulting Unavailable Raymundo, Layla Consulting Unavailable Nate, Charles Consulting Unavailable Juan José Suarez Attending Unavailable Zackary Lyon Attending Unavailable Ranney, [facility] Primary Care Unavailable Ranney, Christopher Referring Unavailable Sho Andino Attending Unavailable Ranney, Christopher Primary Care Unavailable Roof MANAGER PHPTarik Attending Unavailable Ranney, Christopher Referring Unavailable Ranney, Christopher Primary Care Unavailable Ranney, Christopher Referring Unavailable Ranney, Christopher Primary Care Unavailable Francy MANAGER PHPTarik Attending Unavailable Sho Andino Attending Unavailable Ranney, Christopher Referring Unavailable Ranney, Christopher Primary Care Unavailable Richa Arrieta NP Attending Unavailable Ranney, [facility] Primary Care Unavailable Nate, Charles Attending Unavailable Steph Ayesha Consulting Unavailable Ranney, Christopher Primary Care Unavailable Craig, Layla Admitting Unavailable Adeli, Amir Consulting Unavailable Hinduja, Mary Consulting Unavailable Delonte, Clementine Consulting Unavailable Zha, Emmie Consulting Unavailable Adarsh, Mega Consulting Unavailable Otilio, Fay Consulting Unavailable Bittar, Robert Consulting Unavailable Camilo Abernathy Consulting Unavailable John Ye Consulting Unavailable BeKeven austint Consulting Unavailable Rafi, Gertrudis Consulting Unavailable Dioni, Giselle Consulting Unavailable Ridha, Mohamed Consulting Unavailable Zaghlouleh, Mhd Leander Consulting UnavailDuglas Ware Consulting Unavailable Jordan, Rami Consulting Unavailable Loida, Boom Consulting Unavailable Bonnie Blunt Consulting Unavailable Cashnaabraham, Tayosef Consulting Unavailable Layla Craig Consulting Unavailable [facility] Primary Care Unavailable Juan José Suarez Admitting Unavailable Juan José Suarez Consulting Unavailable Santino Haas Attending Unavailable Santino Haas Consulting Unavailable Ayesha Choi Consulting Unavailable Jean Carlos Fritz Consulting Unavailable Mary Montalvo Consulting Unavailable Clementine Martel Consulting Unavailable Emmie Diaz Consulting Unavailable Mega Altamirano Consulting Unavailable Otilio, Fay Consulting Unavailable Bittar, Robert Consulting Unavailable Abernathy, Camilo Consulting Unavailable Ye, John Consulting Unavailable Begeovanna, Rola Consulting Unavailable Guscarol, Gertrudis Consulting Unavailable Dioni, Giselle Consulting Unavailable Ridha, Mohamed Consulting Unavailable Zaghlouleh, Mhd Leander Consulting UnavailDuglas Ware Consulting Unavailable Jordan, Rami Consulting Unavailable Loida, Boom Consulting Unavailable Bonnie Blunt Consulting Unavailable Hannaabraham, Yousef Consulting Unavailable [place], Ricer Referring Unavailable [facility] Primary Care Unavailable KamilahgreenvilleBridget Attending Unavailable [facility] Primary Care Unavailable Rolando, Aleks Chi Attending Unavailable Rolando, Aleks Chi Referring Unavailable Schwiger, Tylor Referring Unavailable Heavenlyiger, Tylor Attending Unavailable [facility], [facility] Unavailable [facility], [facility] Primary Care Unavailable Ayaz Hinton Attending Unavailable Vinayak Mendenhall Referring Unavailable [place], [facility] Primary Care Unavailable Vinayak Mendenhall Attending Unavailable Sho Andino Referring Unavailable Sho Andino Attending Unavailable [facility], [place] Primary Care Unavailable [place], Christopher Referring Unavailable KamilahgreenvilleBridget Attending Unavailable [facility], [place] Primary Care Unavailable Elizabet Tylor Attending Unavailable [facility], [facility] Primary Care Unavailable [facility], [place] Primary Care Unavailable Horace Horta Attending Unavailable [facility] Primary Care Unavailable Zackary Hedrick Referring Unavailxavier e Zackary Hedrick Attending Unavailxavier e Bridget Swenson Referring Un[facility] [place] [facility] Unavailable Bridget Swenson Attending Unavailable [facility] [place] Primary [facility] Unavailable Santino Haas Attending Unavailable Juan José Suarez Consulting Unavailable Juan José Suarez Admitting Unavailable Leela [facility] Primary Care Unavailable Juan José Suarez Consulting Unavailable Juan José Suarez Admitting Unavailable Charles Sullivan Attending Unavailable Bridget Marquez Attending Unavaila ble [facility] [place] Primary [facility] Unavailable Rolando, Aleks Chi Attending Unavailable [facility] Primary Care Unavailable Rolando, Aleks Chi Admitting Unavailable Juan José Suarez Attending Unavailable Layla Craig Attending Unavailable Allergies Allergy Classification Reported Allergen(s) Allergy Type Date of Onset Reaction(s) Facility (20 sources) eggplant extract; 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: [EGGPLANT] Drug Allergy 7 Hives [facility] Work Phone: [phone] (3 sources) gabapentin Drug Allergy 4 unknown [facility] Work Phone: [phone] (3 sources) meloxicam; 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: [MOBIC] Drug Allergy 4 unknown [facility] Work Phone: [phone] (20 sources) mold extract; 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: [MOLD] Drug Allergy 4 Hives [facility] Work Phone: [phone] (3 sources) penicillin; 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: [PENICILLIN] Drug Allergy 1 hives [facility] Work Phone: [phone] (3 sources) risedronate Drug Allergy 4 unknown [facility] Work Phone: [phone] (20 sources) Silk; 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: [SILK] allergy to substance 4 unknown, itching [facility] Work Phone: [phone] (3 sources) wheat; 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: [WHEAT] food allergy 1 hives/swelling [facility] Work Phone: [phone] (13 sources) BEETS; 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: [BEETS] food allergy 2 Rash [facility] Work Phone: [phone] (8 sources) CANTALOPE; 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: [CANTALOPE] food allergy 4 hives [facility] Work Phone: [phone] (3 sources) MULTIPLE FOOD ALLERGIES; 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: [MULTIPLE FOOD ALLERGIES] food allergy 1 hives/swelling [facility] Work Phone: [phone] (12 sources) PROCESSED FOODS; 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: [PROCESSED FOODS] food allergy 1 hives/swelling, Hives [facility] Work Phone: [phone] (20 sources) Beets preparation Drug Allergy 2 [facility] (20 sources) cantaloupe allergenic extract; 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: [CANTALOUPE] Drug Allergy 7 [facility] (20 sources) gabapentin; 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: [GABAPENTIN] Drug Allergy 1 Other: See Comments [facility] (20 sources) levoFLOXacin Drug Allergy 2 Unknown [facility] (20 sources) meloxicam; 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: [MELOXICAM] Drug Allergy 1 Other: See Comments [facility] (20 sources) oxyCODONE Drug Allergy 2 Nausea [facility] (20 sources) Penicillins; 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: [PENICILLINS] Allergy to substance 4 Unknown [facility] (20 sources) Risedronate; 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: [RISEDRONATE SODIUM] Drug Allergy 8 GI Upset [facility] (20 sources) tomato allergenic extract Drug Allergy 2 Food Allergy [facility] (20 sources) Wheat preparation Drug Allergy 2 [facility] (20 sources) CONCENTRATES Allergy to substance 2 [facility] (11 sources) fermented foods Allergy to substance 2 Itching [facility] (20 sources) ceFAZolin Drug Allergy 2 Swelling [facility] (20 sources) Food Allergies: Uncoded; 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: [Food Allergies: Uncoded] Allergy to substance 3 Itching [facility] (10 sources) Alendronate; 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: [ALENDRONATE SODIUM] Drug Allergy 8 GI Upset [facility] (10 sources) pork allergenic extract; 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: [PORK] Drug Allergy 1 Intolerance [facility] (10 sources) Wheat gluten extract; 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: [WHEAT GLUTEN] Drug Allergy 7 Hives [facility] (10 sources) SUTURES; 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: [SUTURES] Propensity to adverse reactions (disorder) 3 Itching [facility] (10 sources) ADHES. [id number] KONIUM; 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: [ADHES. [id number] KONIUM] Propensity to adverse reactions to drug (disorder) 8 [facility] (10 sources) YEAST, DRIED; 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: [YEAST, DRIED] Propensity to adverse reactions to drug (disorder) 2 [facility] Rep[facility] (1 source) Buttermilk; 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: [BUTTERMILK] Propensity to adverse reactions to food (disorder) 5 [facility] Rep[facility] (1 source) Cheese; 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: [CHEESE] Propensity to adverse reactions to drug (disorder) 5 [facility] (1 source) latif allergenic extract; 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: [LATIF] Drug Allergy 5 [facility] (13 sources) Shellfish; 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: [SHELLFISH DERIVED] Propensity to adverse reactions to drug (disorder) 5 [facility] Rep[facility] (1 source) CRANBERRY FRUIT CONCENTRATE; 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: [CRANBERRY FRUIT CONCENTRATE] Propensity to adverse reactions to drug (disorder) 5 [facility] Rep[facility] (1 source) SOYBEAN, FERMENTED; 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: [SOYBEAN, FERMENTED] Propensity to adverse reactions to drug (disorder) 5 [facility] Rep[facility] (1 source) TOMATOES; 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: [TOMATOES] Propensity to adverse reactions to food (disorder) 5 [facility] Repository (11 sources) DULoxetine Drug Allergy 4 [facility] (1 source) Beets preparation Drug Allergy 5 [facility] (1 source) cantaloupe allergenic extract Drug Allergy 5 [facility] (1 source) ceFAZolin Drug Allergy 5 [facility] (1 source) DULoxetine Drug Allergy 5 [facility] (1 source) gabapentin Drug Allergy 5 [facility] (1 source) levoFLOXacin Drug Allergy 5 [facility] (1 source) meloxicam Drug Allergy 5 [facility] (1 source) oxyCODONE Drug Allergy 5 [facility] (1 source) Risedronate Drug Allergy 5 [facility] (1 source) tomato allergenic extract Drug Allergy 5 [facility] (1 source) Wheat preparation Drug Allergy 5 [facility] Repository Medications Current Medications Medication Drug Class(es) Dates Sig (Normalized) Sig (Original) acetaminophen 325 mg / HYDROcodone bitartrate 7.5 mg oral tablet (20 sources) Opioid Agonist Start: 10-03-2024 End: 10-09-2024 Start: 11-03-2023 End: 05-16-2024 Start: 01-28-2023 take 1 tablet by onofre th twice daily Hydrocodone-Acetaminophen Active 1 TABLET PO TWICE A DAY January 28, 2023 2:19pm Start: 02-11-2022 End: 11-03-2023 Start: 02-11-2022 End: 01-28-2023 take 1 tablet by mouth every four hours as needed Hydrocodone-Acetaminophen Discontinued 1 TABLET PO EVERY 4 HOURS NEEDED 27 07March 12, 2022 January 28, 2023 2:21pm Start: 02-11-2022 End: 03-12-2022 take 1 tablet by onofre th every six hours as needed HYDROcodone-Acetaminophen (NORCO) 7.5-325 mg per tablet Take 1 tablet by mouth four times a day as needed for pain. Suspended ascorbic acid 500 mg oral tablet (11 sources) Vitamin C Start: 08-30-2024 aspirin 81 mg chewable table t (20 sources) Nonsteroidal Anti-inflammatory Drug Start: 05-16-2024 Start: 02-16-2022 End: 03-12-2022 Start: 08-18-2013 take 1 tablet by onofre th once daily ASPIRIN 325 MG TABS One tablet by mouth daily ASPIRIN [id number] Evin Mora MD Start: 07-29-2013 take 1 tablet by onofre th once daily ASPIRIN 81 MG TABS One tablet by mouth daily ASPIRIN [id number] Evin Mora MD Start: 07-29-2013 End: 02-12-2022 calcium carbonate 500 mg chewable tablet (3 sources) Start: 05-15-2012 End: 05-14-2024 take 1 tablet by mouth every hour as needed calcium carbonate 500 mg Chew Take 1 tablet by mouth PRN(NO DISPENSE) (take 1 tums every hour as needed for mouth or hand numbness or tingling, continue until symptoms improve). 0 05/15/2012 05/14/2024 Discontinued (Erroneous entry) Calcium Carbonate-Vitamin D2 (20 sources) Start: 07-24-2021 take 1 tablet by mouth twice daily Calcium Carbonate-Vitamin D2 Active 1 TABLET PO TWICE A DAY July 24, 2021 9:02am Start: 07-24-2021 take 1 tablet by onofre th twice daily Calcium Carbonate-Vitamin D2 Active 1 TABLET PO TWICE A DAY July 23, 2021 11:00pm Start: 07-24-2021 take 1 tablet by onofre th twice daily Calcium Carbonate-Vitamin D2 Active 1 TABLET PO TWICE A DAY July 24, 2021 12:00am cholecalciferol 0.025 mg ora l capsule (20 sources) Vitamin D Start: 08-30-2024 Start: 12-25-2016 End: 05-16-2024 Start: 01-17-2011 VITAMIN D 1000 UNIT CAPS 1 tab daily CHOLECALCIFEROL [id number] Maia ABDALLA Start: 01-17-2011 End: 07-29-2013 VITAMIN D 1000 UNIT CAPS 1 t ab daily CHOLECALCIFEROL [id number] Tana Gomez, ALBERT take 2 capsules by m out once daily cholecalciferol (Vitamin D-3) 25 mcg (1,000 units) capsule Take 2 capsules (50 mcg) by mouth once daily. Active ciprofloxacin 500 mg oral tablet (11 sources) Quinolone Antimicrobial Start: 10-13-2024 End: 10-20-2024 take 1 tablet by mouth twice daily ciprofloxacin (Cipro) 500 mg tablet Indications: UTI (urinary tract infection), bacterial Take 1 tablet (500 mg) by mouth 2 times a day for 7 days. 14 tablet 10/13/2024 10/20/2024 Active Start: 10-13-2024 End: 10-13-2024 take 500 mg by mouth once 500 mg, oral, Once, On Fri at 0040, For 1 dose, Separate at least 2 hours before or 6 hours after antacids or other products containing calcium, iron, or zinc., Dosing of this medication varies based on severity of illness. Does this patient have sepsis or concern for sepsis (probable or documented infection plus systemic manifestations of infection)? No, Suspected Indication (Select all that apply): Urinary Tract Infection, Type of Therapy: Empiric, Type of Urinary Tract Infection: Uncomplicated, Indications: Urinary Tract Infection Start: 08-12-2013 End: 03-10-2015 take 1 drop(s) into the eye(s) four times daily CILOXAN 0.3 % SOLN 1 drop left eye 4 times daily CIPROFLOXACIN HCL [id number] Cassandra Ramos RN Start: 07-29-2013 CILOXAN 0.3 % SOLN 1 dropp left eye 4 times daily CIPROFLOXACIN HCL [id number] Tana Gomez RN CPAP (3 sources) Start: 11-18-2012 End: 05-14-2024 CPAP Indications: NEL (obstr uctive sleep apnea) AutoPAP 5/15 cmH2O, suitable mask, humidity, filters. Lifetime supplies. Dx: 327.23. Fax compliance rpt to Dr. Escoto in 4 weeks. 1 Device 0 11/18/2012 05/14/2024 Discontinued (Erroneous entry) Start: 11-18-2012 CPAP Indicatio ns: NEL (obstructive sleep apnea) AutoPAP 5/15 cmH2O, suitable mask, humidity, filters. Lifetime supplies. Dx: 327.23. Fax compliance rpt to Dr. Escoto in 4 weeks. 1 Device 0 11/18/2012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 closed fracture; 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: [Closed fracture of lumbar vertebra without mention of spinal cord injury] Episodic Other fractures (20 sources) Compression fracture of L2; 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: [Wedge compression fracture of second lumbar vertebra, initial encounter for closed fracture] Onset: 06-28-2024 04-26-2022 Episodic Other fractures (2 sources) Wedge compression fracture of second lumbar vertebra, initial encounter for closed fracture; 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: [Closed fracture of lumbar vertebra without mention of spinal cord injury] Episodic Other fractures (1 source) Closed fracture of multiple left ribs; 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: [Multiple fractures of ribs, left side, initial encounter for closed fracture] Onset: 06-27-2024 06-27-2024 Episodic Other fractures (1 source) Closed fracture lumbar vertebra, transverse process ; 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: [Unspecified fracture of unspecified lumbar vertebra, initial encounter for closed fracture] Onset: 06-27-2024 06-27-2024 Episodic Other fractures (1 source) Multiple fractures of ribs, left side, initial encounter for closed fracture; 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: [Closed fracture of multiple ribs of left side, initial encounter] Onset: 06-27-2024 Episodic Other fractures (1 source) Unspecified fracture of unspecified lumbar vertebra, initial encounter for closed fracture; 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: [Closed fracture of transverse process of lumbar vertebra, initial encounter ([facility])] Onset: 06-27-2024 Episodic Other fractures (20 sources) Fracture of multiple ribs ; 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: [Multiple fractures of ribs, unspecified side, initial encounter for closed fracture] 06-30-2024 Episodic Other fractures (20 sources) Fracture of transverse process of vertebra; 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: [Closed fracture of unspecified vertebral column without mention of spinal cord injury] 06-30-2024 Episodic Other fractures (11 sources) Fracture of lumbar spine; 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: [Unspecified fracture of unspecified lumbar vertebra, initial encounter for closed fracture] 07-04-2024 Episodic Other hereditary and degenerative nervous system conditions (20 sources) Restless legs; 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: [Restless legs syndrome] Onset: 05-11-2024 02-11-2022 Chronic Other hereditary and degenerative nervous system conditions (18 sources) Restless legs syndrome; 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: [Restless legs syndrome (RLS)] Onset: 06-01-2024 Chronic Other injuries and conditions due to external causes (11 sources) Angioedema; 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: [Angioneurotic edema, initial encounter] 11-13-2023 Episodic Other lower respiratory disease (20 sources) Dyspnea on exertion; 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: [Dyspnea, unspecified] 04-05-2020 Episodic Other lower respiratory disease (3 sources) Dyspnea, unspecified; 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: [Other respiratory abnormalities] Onset: 11-19-2024 Episodic Other lower respiratory disease (1 source) Respiratory insufficiency; 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: [Other abnormalities of breathing] Onset: 06-28-2024 06-28-2024 Episodic Other lower respiratory disease (11 sources) Hypoxia; 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: [Hypoxemia] 07-04-2024 Episodic Other lower respiratory disease (1 source) Shortness of breath; 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: [Shortness of breath] Onset: 11-25-2024 Episodic Other nervous system disorders (20 sources) Unable to walk; 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: [Difficulty in walking, not elsewhere classified] 02-09-2022 Chronic Other nervous system disorders (11 sources) Difficulty in walking, not elsewhere classified; 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: [Difficulty in walking] Chronic Other nervous system disorders (18 sources) Aphasia; 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: [Aphasia] 09-08-2024 Chronic Other nervous system disorders (1 source) Other chronic pain; 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: [Other chronic pain] Onset: 10-09-2024 Chronic Other nervous system disorders (2 sources) Aphasia; 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: [Aphasia] Onset: 09-06-2024 Chronic Other nervous system disorders (1 source) Acute pain due to injury; 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: [Acute pain due to trauma] Onset: 06-28-2024 06-28-2024 Episodic Other nervous system disorders (18 sources) Toxic encephalopathy; 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: [Toxic encephalopathy] 10-04-2024 Episodic Other nutritional; endocrine; and metabolic disorders (20 sources) Hypomagnesemia; 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: [Hypomagnesemia] 02-11-2022 Chronic Other nutritional; endocrine; and metabolic disorders (18 sources) Hypomagnesemia; 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: [Disorders of magnesium metabolism] Onset: 06-01-2024 Chronic Other nutritional; endocrine; and metabolic disorders (20 sources) Obese class I; 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: [Obesity, Class I, BMI 30-34.9] Onset: 05-12-2024 05-16-2024 Chronic Other nutritional; endocrine; and metabolic disorders (13 sources) Hypophosphatemia; 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: [Other disorders of phosphorus metabolism] 05-28-2024 Chronic Other nutritional; endocrine; and metabolic disorders (2 sources) Organ-limited amyloidosis; 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] Onset: 06-16-2024 Chronic Other nutritional; endocrine; and metabolic disorders (1 source) Other disorders of phosphorus metabolism; 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: [Other disorders of phosphorus metabolism] Onset: 06-01-2024 Chronic Other nutritional; endocrine; and metabolic disorders (1 source) Hypercalcemia; 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: [Hypercalcemia] Onset: 05-13-2024 Chronic Other upper respiratory disease (11 sources) Bleeding from nose; 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: [Epistaxis] 11-13-2023 Episodic Pneumonia (except that caused by tuberculosis or sexually transmitted disease) (20 sources) Community acquired pneumonia; 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: [Pneumonia, unspecified organism] 10-07-2019 Episodic Pulmonary heart disease (20 sources) Pulmonary arterial hypertension; 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: [Secondary pulmonary arterial hypertension] Onset: 06-01-2024 04-30-2021 Chronic Residual codes; unclassified (13 sources) Sleep apnea; 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: [Sleep apnea, unspecified] 06-07-2024 Chronic Residual codes; unclassified (1 source) Obstructive sleep apnea (adult) (pediatric); 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: [Obstructive sleep apnea (adult) (pediatric)] Onset: 09-03-2024 Chronic Residual codes; unclassified (20 sources) Edema; 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: [Edema, unspecified] 02-11-2022 Episodic Residual codes; unclassified (17 sources) Edema, unspecified; 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: [Edema] Episodic Residual codes; unclassified (20 sources) Insomnia; 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: [Insomnia, unspecified] Onset: 02-11-2007 Resolved: 02-19-2012 02-19-2012 Episodic Residual codes; unclassified (1 source) H/O Spinal surgery; 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: [Other specified postprocedural states] Onset: 06-27-2024 06-27-2024 Episodic Residual codes; unclassified (1 source) At risk of delirium; 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: [Other specified personal risk factors, not elsewhere classified] Onset: 06-28-2024 06-28-2024 Episodic Residual codes; unclassified (18 sources) Noncompliance with treatment; 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: [Noncompliance] 10-04-2024 Episodic Residual codes; unclassified (9 sources) Delirium; 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: [Disorientation, unspecified] 10-04-2024 Episodic Residual codes; unclassified (18 sources) Disturbance of consciousness; 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: [Transient alteration of awareness] 09-01-2024 Episodic Residual codes; unclassified (1 source) Altered mental status; 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: [Altered mental status, unspecified] 10-13-2024 Episodic Retinal detachments; defects; vascular occlusion; and retinopathy (1 source) Retinal hemorrhage, left eye; 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: [Retinal hemorrhage, left eye] Onset: 04-30-2024 Chronic Superficial injury; contusion (20 sources) Contusion of chest; 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: [Contusion of unspecified front wall of thorax, initial encounter] 05-26-2022 Episodic Thyroid disorders (20 sources) Non-toxic multinodular goiter; 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: [Nontoxic multinodular goiter] Onset: 03-04-2005 11-20-2023 Chronic Unclassified (20 sources) Obstructive sleep apnea syndrome; 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: [Body mass index (BMI) 30.0-30.9, adult] Onset: 10-16-2011 08-12-2013 Chronic Unclassified (6 sources) Long-term drug therapy; 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: [Long-term (current) use of other medications] Onset: 07-26-2014 07-26-2014 Unclassified (1 source) Hospital Discharge Onset: 06-15-2024 Unclassified (1 source) Unspecified toxic encephalopathy; 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: [Unspecified toxic encephalopathy] Onset: 10-09-2024 Unclassified (1 source) Patient's noncompliance with other medical treatment and regimen due to unspecified reason; 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: [Patient's noncompliance with other medical treatment and regimen due to unspecified reason] Onset: 10-09-2024 Unclassified (1 source) Obesity, class 1; 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: [Obesity, class 1] Onset: 09-03-2024 Viral infection (20 sources) Herpes zoster; 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: [Acute viral disease] 01-18-2011 Episodic Past or Other Problems Problem Classification Problem Date Documented Da te Episodic/Chronic Abdominal pain (8 sources) Abdominal pain; 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: [Unspecified abdominal pain] Onset: 12-31-2011 12-31-2011 Episodic Cardiac dysrhythmias (3 sources) Palpitations; 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: [Palpitations] Onset: 12-26-2016 12-26-2016 Episodic Coma; stupor; and brain damage (14 sources) Daytime somnolence; 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: [Somnolence] Onset: 06-01-2024 06-07-2024 Episodic Complication of device; implant or graft (14 sources) Catheter-associated urinary tract infection; 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: [Infection and inflammatory reaction due to indwelling urethral catheter, initial encounter] Onset: 06-01-2024 06-07-2024 Episodic Deficiency and other anemia (18 sources) Iron deficiency anemia, unspecified; 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: [Iron deficiency anemia, unspecified] Onset: 06-01-2024 Episodic Deficiency and other anemia (1 source) Anemia, unspecified; 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: [Anemia, unspecified] Onset: 07-06-2024 Episodic E Codes: Adverse effects of medical drugs (19 sources) Adverse reaction to drug; 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: [Adverse effect of unspecified drugs, medicaments and biological substances, initial encounter] Onset: 10-09-2024 10-04-2024 Episodic E Codes: Fall (20 sources) Fall on same level; 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: [Fall on same level, unspecified, initial encounter] Onset: 06-27-2024 06-27-2024 Episodic Genitourinary symptoms and ill-defined conditions (20 sources) Retention of urine; 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: [Retention of urine, unspecified] Onset: 06-01-2024 05-31-2024 Episodic Malaise and fatigue (20 sources) Malaise and fatigue; 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: [Asthenia] Onset: 08-11-2014 08-11-2014 Episodic Other aftercare (1 source) meterman (current) use of anticoagulants; 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: [residential (current) use of anticoagulants] Onset: 06-01-2024 Episodic Other and unspecified benign neoplasm (6 sources) Skin - benign mole and nevus; 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: [Hemangioma of skin] 01-18-2011 Episodic Other and unspecified benign neoplasm (8 sources) History of polyp of colon; 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: [Personal history of colonic polyps] Onset: 12-31-2011 12-31-2011 Episodic Other circulatory disease (1 source) Personal history of transient ischemic attack (TIA), and cerebral infarction without residual deficits; 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: [Personal history of transient ischemic attack (TIA), and cerebral infarction without residual deficits] Onset: 06-25-2024 Episodic Other connective tissue disease (1 source) Muscle wasting and atrophy, not elsewhere classified, right lower leg; 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: [Muscle wasting and atrophy, not elsewhere classified, right lower leg] Onset: 10-13-2024 Episodic Other connective tissue disease (1 source) Other specified soft tissue disorders; 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: [Other specified soft tissue disorders] Onset: 06-21-2024 Episodic Other connective tissue disease (1 source) Other symptoms and signs involving the nervous system; 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: [Other symptoms and signs involving the nervous system] Onset: 06-02-2024 Episodic Other diseases of veins and lymphatics (1 source) Venous insufficiency (chronic) (peripheral); 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: [Venous insufficiency (chronic) (peripheral)] Onset: 06-01-2024 Episodic Other fractures (1 source) Multiple fractures of ribs, left side, subsequent encounter for fracture with routine healing; 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: [Multiple fractures of ribs, left side, subsequent encounter for fracture with routine healing] Onset: 07-27-2024 Episodic Other gastrointestinal disorders (8 sources) Other specified symptoms and signs involving the digestive system and abdomen; 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: [Other symptoms involving digestive system] Onset: 12-31-2011 12-31-2011 Episodic Other injuries and conditions due to external causes (1 source) Encounter for examination and observation following other accident; 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: [Encounter for examination and observation following other accident] Onset: 07-08-2024 Episodic Other lower respiratory disease (14 sources) Other forms of dyspnea; 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: [Other respiratory abnormalities] Onset: 03-13-2024 Episodic Other lower respiratory disease (8 sources) Solitary nodule of lung; 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: [Solitary pulmonary nodule] Onset: 12-24-2010 05-07-2021 Episodic Other non-traumatic joint disorders (8 sources) Shoulder joint pain; 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: [Pain in unspecified shoulder] Onset: 06-19-2012 06-19-2012 Episodic Other screening for suspected conditions (not mental disorders or infectious disease) (20 sources) Elevated C-reactive protein; 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: [Elevated C-reactive protein (CRP)] Onset: 06-01-2024 Episodic Other skin disorders (6 sources) Dystrophia unguium; 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: [Senile hyperkeratosis] Onset: 07-21-2012 07-21-2012 Episodic Pathological fracture (8 sources) Stress fracture of sacrum; 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: [Pathological fracture, other site, initial encounter for fracture] Onset: 03-29-2011 03-29-2011 Episodic Residual codes; unclassified (3 sources) Altered mental status, unspecified; 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: [Altered mental status, unspecified] Onset: 10-12-2024 Episodic Residual codes; unclassified (1 source) Transient alteration of awareness; 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: [Transient alteration of awareness] Onset: 09-03-2024 Episodic Spondylosis; intervertebral disc disorders; other back problems (20 sources) Intractable low back pain; 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: [Intractable low back pain] Onset: 02-11-2007 Episodic Urinary tract infections (20 sources) Urinary tract infectious disease; 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: [Urinary tract infection, site not specified] Onset: 06-01-2024 06-23-2024 Episodic Results Test Name Value Interpretation Reference Range Facility Cardiology Visit Reporton Cardiology Visit Report Normal [facility] Anion gap in Serum or Plasma Ordered By: Sho Andino on 11-19-2024 Anion gap [Moles/Vol] 10 mmol/L 09-23 [facility] BUN/creatinine ratioOrdered By: Sho Andino on 11-19-2024 Urea nitrogen/Creatinine [Mass ratio] 18.4 mg/mg - [facility] Basic Metabolic Profile (BMP )on 11-19-2024 BUN/CRE 18.4 RATIO Normal 02-28 [facility] Comment on above: Performed By: #### L 500.2500, L503.7505 ####[facility] [address] [place], [address] Calcium [Mass/Vol] 8.3 mg/dL Normal 7.6-11.[address] [facility] Comment on above: Performed By: #### L 500.2500, L503.7505 ####[facility] [address] [place], [address] Chloride [Moles/Vol] 98 mmol/L Normal 98-108 [facility] Comment on above: Performed By: #### L 500.2500, L503.7505 ####[facility] [address] [place], [address] CO2 [Moles/Vol] 26.0 mmol/L Normal 21.0-32.0 [facility] Comment on above: Performed By: #### L 500.2500, L503.7505 ####[facility] [address] [place], [address] Creatinine [Mass/Vol] 0.80 mg/dL Normal 0.70-1.20 [facility] Comment on above: Performed By: #### L 500.2500, L503.7505 ####[facility] [address] [place], [address] GAP 10 Normal 5-15 [facility] Comment on above: Performed By: #### L 500.2500, L503.7505 ####[facility] [address] [place], [address] GFR/1.73 sq M.predicted among non-blacks MDRD (S/P/Bld) [Vol rate/Area] 71 mL/min/{1.73_m2} Normal >60 [facility] Comment on above: Result Comment: mL/m in/1.73m2 CKD-EPI Creatinine Equation (2020) Performed By: #### L 500.2500, L503.7505 ####[facility] [address] [place], [address] Glucose [Mass/Vol] 108 mg/dL High 70-[address] [facility] Comment on above: Performed By: #### L 500.2500, [id number] ####[facility] [address] [place], [address] Potassium [Moles/Vol] 4.5 mmol/L Normal 3.3-5.1 [facility] Comment on above: Performed By: #### L 500.2500, L503.7505 ####[facility] [address] [place], [address] Sodium [Moles/Vol] 134 mmol/L Normal 133-[address] [facility] Comment on above: Performed By: #### L 500.2500, [id number] ####[facility] [address] [place], [address] Urea nitrogen [Mass/Vol] 15 mg/dL Normal 4-19 [facility] Comment on above: Performed By: #### L 500.2500, L503.7505 ####[facility] [address] [place], [address] Carbon dioxide, total [Moles /volume] in Central venous bloodOrdered By: Sho Andino on 11-19-2024 CO2 [Moles/Vol] 26.0 mmol/L 21.0-32.0 [facility] Cardiology Visit Reporton Cardiology Visit Report Normal [facility] Chloride assayOrdered By: Jossue Andino on 11-19-2024 Chloride [Moles/Vol] 98 mmol/L 98-108 [facility] Glomerular filtration rate ( GFR) estimation/1.73 sq m using serum, plasma, or whole bOrdered By: Sho Andino on 11-19-2024 GFR/1.73 sq M.predicted among non-blacks MDRD (S/P/Bld) [Vol rate/Area] 71 mL/min/{1.73_m2} >60 [facility] L503.7505on 11-19-2024 Natriuretic peptide B (Bld) [Mass/Vol] 628 pg/mL Normal <=1800 [facility] Comment on above: Result Comment: Hear t Failure Unlikely: < 300 pg/mLHeart Failure Likely< 50 Years: > 450 pg/mL50-75 Years: > 900 pg/mL>75 Years: > 1800 pg/mL Performed By: #### L 500.2500, [id number] ####[facility] [address] [place], [address] Natriuretic peptide.B prohor elier N-Terminal [Mass/volume] in Serum or PlasmaOrdered By: Sho Andino on 11-19-2024 Natriuretic peptide.B prohormone N-Terminal [Mass/Vol] 628 pg/mL <1800 [facility] Potassium measurement (mass/ volume)Ordered By: Sho Andino on 11-19-2024 Potassium (Unsp spec) [Mass/Vol] 4.5 mmol/L 3.3-5.1 [facility] Serum creatinine measurement (mass/volume)Ordered By: Sho Andino on 11-19-2024 Creatinine [Mass/Vol] 0.80 mg/dL 0.70-1.20 [facility] Serum glucose measurement (m ass/volume)Ordered By: Sho Andino on 11-19-2024 Glucose [Mass/Vol] 108 mg/dL High 70-[address] [facility] Serum or plasma calcium manuel urement (mass/volume)Ordered By: Sho Andino on 11-19-2024 Calcium [Mass/Vol] 8.3 mg/dL 7.6-11.[address] [facility] Serum or plasma urea nitroge n measurement (mass/volume)Ordered By: Sho Andino on 11-19-2024 Urea nitrogen [Mass/Vol] 15 mg/dL 4-19 [facility] Sodium levelOrdered By: Elsie Andino on 11-19-2024 Sodium [Moles/Vol] 134 mmol/L 133-[address] [facility] 12 Lead EKGon 11-17-2024 12 Lead EKG Normal [facility] Absolute lymphocyte countOrd ered By: Tylor Hendrickson on 11-17-2024 Lymphocytes Auto (Unsp spec) [#/Vol] 1.78 10*3/uL 0.83-4.51 [facility] Anion gap in Serum or Plasma Ordered By: Tylor Hendrickson on 11-17-2024 Anion gap [Moles/Vol] 14 mmol/L 5-15 [facility] Automated lymphocyte count a s percentage of total leukocytesOrdered By: Tylor Burdickpete on 11-17-2024 Lymphocytes/100 WBC Auto (Unsp spec) 21.5 % 19-41 [facility] BUN/creatinine ratioOrdered By: Tylorjoseph Burdickpete on 11-17-2024 Urea nitrogen/Creatinine [Mass ratio] 20.6 mg/mg High 10- [facility] Basic Metabolic Profile (BMP )on 11-17-2024 BUN/CRE 20.6 RATIO High 10- [facility] Comment on above: Performed By: #### L 100.0100, L500.2500, L501.4021, L503.7505 ####[facility] [address] [place], [address] ECRCL 37.43 ml/min Low 50-250 [facility] Comment on above: Performed By: #### L 100.0100, L500.2500, L501.4021, L503.7505 ####[facility] [address] [place], [address] GAP 14 Normal - [facility] Comment on above: Performed By: #### L 100.0100, L500.2500, L501.4021, L503.7505 ####[facility] [address] [place], [address] Potassium [Moles/Vol] 4.7 mmol/L Normal 3.3-5.1 [facility] Comment on above: Performed By: #### L 100.0100, L500.2500, L501.4021, L503.7505 ####[facility] [address] [place], [address] Basophil percentageOrdered B y: Tylor Burdickpete on 11-17-2024 Basophils/100 WBC (Bld) 0.8 % 0-1 [facility] CBC W/Diff, Automatedon 07-0 Absolute Lymph 1.78 X10 3/uL Normal 0.83-4.51 [facility] Comment on above: Performed By: #### L 100.0100, L500.2500, L501.4021, L503.7505 ####[facility] [address] [place], [address] Absolute Neut 5.4 X10 3/uL Normal 2.0-7.7 [facility] Comment on above: Performed By: #### L 100.0100, L500.2500, L501.4021, L503.7505 ####[facility] [address] [place], [address] Basophils/100 WBC (Bld) 0.8 % Normal 0-1 [facility] Comment on above: Performed By: #### L 100.0100, L500.2500, L501.4021, L503.7505 ####[facility] [address] [place], [address] Eosinophils/100 WBC (Bld) 1.7 % Normal 0-5 [facility] Comment on above: Performed By: #### L 100.0100, L500.2500, L501.4021, L503.7505 ####[facility] [address] [place], [address] Erythrocyte distribution width (RBC) [Ratio] 15.7 % High 11.6-14.6 [facility] Comment on above: Performed By: #### L 100.0100, L500.2500, L501.4021, L503.7505 ####[facility] [address] [place], [address] Hematocrit (Bld) [Volume fraction] 31.2 % Low 37-47 [facility] Comment on above: Performed By: #### L 100.0100, L500.2500, L501.4021, L503.7505 ####[facility] [address] [place], [address] Hemoglobin (Bld) [Mass/Vol] 9.6 g/dL Low 12.0-15.0 [facility] Comment on above: Performed By: #### L 100.0100, L500.2500, L501.4021, L503.7505 ####[facility] [address] [place], [address] IG% 0.700 Normal 0.0-0.9 [facility] Comment on above: Result Comment: IG% - Immature Granulocytes (promyelocytes, myelocytes andmetamyelocytes) > 1% indicates that a LEFT SHIFT is Present. Performed By: #### L 100.0100, L500.2500, L501.4021, L503.7505 ####[facility] [address] [place], [address] Lymphocytes/100 WBC (Bld) 21.5 % Normal 19-41 [facility] Comment on above: Performed By: #### L 100.0100, L500.2500, L501.4021, L503.7505 ####[facility] [address] [place], [address] MCH (RBC) [Entitic mass] 28.4 pg Normal 27.0-32.0 [facility] Comment on above: Performed By: #### L 100.0100, L500.2500, L501.4021, L503.7505 ####[facility] [address] [place], [address] MCHC (RBC) [Mass/Vol] 30.8 g/dL Low 32-36 [facility] Comment on above: Performed By: #### L 100.0100, L500.2500, L501.4021, L503.7505 ####[facility] [address] [place], [address] MCV (RBC) [Entitic vol] 92.3 fL Normal 81-99 [facility] Comment on above: Performed By: #### L 100.0100, L500.2500, L501.4021, L503.7505 ####[facility] [address] [place], [address] Monocytes/100 WBC (Bld) 9.6 % Normal 0-10 [facility] Comment on above: Performed By: #### L 100.0100, L500.2500, L501.4021, L503.7505 ####[facility] [address] [place], [address] Neutrophils/100 WBC (Bld) 65.7 % Normal 47-70 [facility] Comment on above: Performed By: #### L 100.0100, L500.2500, L501.4021, L503.7505 ####[facility] [address] [place], [address] Nucleated RBC (Bld) [#/Vol] 0 10*3/uL Normal 0-5 [facility] Comment on above: Performed By: #### L 100.0100, L500.2500, L501.4021, L503.7505 ####[facility] [address] [place], [address] Platelet mean volume (Bld) [Entitic vol] 9.2 fL Normal 6.2-12.0 [facility] Comment on above: Performed By: #### L 100.0100, L500.2500, L501.4021, L503.7505 ####[facility] [address] [place], [address] Platelets (Bld) [#/Vol] 401 10*3/uL Normal 150-450 [facility] Comment on above: Performed By: #### L 100.0100, L500.2500, L501.4021, L503.7505 ####[facility] [address] [place], [address] RBC (Bld) [#/Vol] 3.38 10*6/uL Low 4.2-5.4 [facility] Comment on above: Performed By: #### L 100.0100, L500.2500, L501.4021, L503.7505 ####[facility] [address] [place], [address] RDW SD 53.4 fl High 35.1-43.9 [facility] Comment on above: Performed By: #### L 100.0100, L500.2500, L501.4021, L503.7505 ####[facility] [address] [place], [address] WBC (Bld) [#/Vol] 8.3 10*3/uL Normal 4.4-11.[address] [facility] Comment on above: Performed By: #### L 100.0100, L500.2500, L501.4021, L503.7505 ####[facility] [address] [place], [address] Carbon dioxide, total [Moles /volume] in Central venous bloodOrdered By: Tylor Hendrickson on 11-17-2024 CO2 [Moles/Vol] 22.4 mmol/L Normal 21.0-32.0 [facility] Comment on above: Performed By: #### L 100.0100, L500.2500, L501.4021, L503.7505 ####[facility] [address] [place], [address] Chest 1 View (Portable)on Chest 1 View (Portable) Normal [facility] Chloride assayOrdered By: Cari Hendrickson on 11-17-2024 Chloride [Moles/Vol] 99 mmol/L Normal 98-108 [facility] Comment on above: Performed By: #### L 100.0100, L500.2500, L501.4021, L503.7505 ####[facility] [address] [place], [address] Emergency Department Summary on 11-17-2024 Emergency Department Summary Normal [facility] Eosinophil percentageOrdered By: Tylor Hendrickson on 11-17-2024 Eosinophils/100 WBC (Bld) 1.7 % 0-5 [facility] Erythrocyte distribution wid th ratioOrdered By: Tylor Hendrickson on 11-17-2024 Erythrocyte distribution width (RBC) [Ratio] 15.7 % High 11.6-14.6 [facility] Erythrocyte distribution wid th standard deviationOrdered By: Tylor Hendrickson on 11-17-2024 Erythrocyte distribution width (RBC) [Ratio] 53.4 fl High 35.1-43.9 [facility] Glomerular filtration rate ( GFR) estimation/1.73 sq m using serum, plasma, or whole bOrdered By: Tylor Hendrickson on 11-17-2024 GFR/1.73 sq M.predicted among non-blacks MDRD (S/P/Bld) [Vol rate/Area] 60 mL/min/{1.73_m2} Normal >60 [facility] Comment on above: Result Comment: mL/m in/1.73m2 CKD-EPI Creatinine Equation (2020) Performed By: #### L 100.0100, L500.2500, L501.4021, L503.7505 ####[facility] [address] [place], [address] Hematocrit Auto (Bld) [Volum e fraction]Ordered By: Tylor Hendrickson on 11-17-2024 Hematocrit (Bld) [Volume fraction] 31.2 % Low 37-47 [facility] Hemoglobin measurementOrdere d By: Tylor Hendrickson on 11-17-2024 Hemoglobin (Bld) [Mass/Vol] 9.6 g/dL Low 12.0-15.0 [facility] Immature granulocytes/100 WB C Auto (Bld)Ordered By: Tylor Hendrickson on 11-17-2024 Immature granulocytes/100 WBC (Bld) 0.700 % 0.0-0.9 [facility] L499.0042on 11-17-2024 Trop T High Sen 34 ng/L High <=14 [facility] Comment on above: Performed By: #### L 499.0042 ####[facility] [address] [place], [address] L499.0043on 11-17-2024 Trop T High Sen 34 ng/L High <=14 [facility] Comment on above: Performed By: #### L 499.0043 ####[facility] [address] [place], [address] L501.4021on 11-17-2024 Trop T High Sen 35 ng/L High <=14 [facility] Comment on above: Performed By: #### L 100.0100, L500.2500, L501.4021, L503.7505 ####[facility] [address] [place], [address] L503.7505on 11-17-2024 Natriuretic peptide B (Bld) [Mass/Vol] 666 pg/mL Normal <=1800 [facility] Comment on above: Result Comment: Hear t Failure Unlikely: < 300 pg/mLHeart Failure Likely< 50 Years: > 450 pg/mL50-75 Years: > 900 pg/mL>75 Years: > 1800 pg/mL Performed By: #### L 100.0100, L500.2500, L501.4021, L503.7505 ####[facility] [address] [place], [address] MCV (mean corpuscular volume ) determinationOrdered By: Tylor Hendrickson on 11-17-2024 MCV (RBC) [Entitic vol] 92.3 fL 81-99 [facility] Mean corpuscular hemoglobin (MCH) determinationOrdered By: Tylor Hendrickson on 11-17-2024 MCH (RBC) [Entitic mass] 28.4 pg 27.0-32.0 [facility] Monocyte percentageOrdered B y: Tylor Hendrickson on 11-17-2024 Monocytes/100 WBC (Bld) 9.6 % 0-10 [facility] Natriuretic peptide.B prohor elier N-Terminal [Mass/volume] in Serum or PlasmaOrdered By: Tylor Hendrickson on 11-17-2024 Natriuretic peptide.B prohormone N-Terminal [Mass/Vol] 666 pg/mL <1800 [facility] Neutrophil percentageOrdered By: Tylor Hendrickson on 11-17-2024 Neutrophils/100 WBC (Bld) 65.7 % 47-70 [facility] Platelet countOrdered By: Cari Hendrickson on 11-17-2024 Platelets (Bld) [#/Vol] 401 10*3/uL 150-450 [facility] Potassium measurement (mass/ volume)Ordered By: Tylor Hendrickson on 11-17-2024 Potassium (Unsp spec) [Mass/Vol] 4.7 mmol/L 3.3-5.1 [facility] RBC Auto (Bld) [#/Vol]Ordere d By: Tylor Hendrickson on 11-17-2024 RBC (Bld) [#/Vol] 3.38 10*6/uL Low 4.2-5.4 [facility] Serum creatinine measurement (mass/volume)Ordered By: Tylor Hendrickson on 11-17-2024 Creatinine [Mass/Vol] 0.92 mg/dL Normal 0.70-1.20 [facility] Comment on above: Performed By: #### L 100.0100, L500.2500, L501.4021, L503.7505 ####[facility] [address] [place], [address] Serum glucose measurement (m ass/volume)Ordered By: Tylor Hendrickson on 11-17-2024 Glucose [Mass/Vol] 106 mg/dL High 70-[address] [facility] Comment on above: Performed By: #### L 100.0100, L500.2500, L501.4021, L503.7505 ####[facility] [address] [place], [address] Serum or plasma calcium manuel urement (mass/volume)Ordered By: Tylor Hendrickson on 11-17-2024 Calcium [Mass/Vol] 8.1 mg/dL Normal 7.6-11.[address] [facility] Comment on above: Performed By: #### L 100.0100, L500.2500, L501.4021, L503.7505 ####[facility] [address] [place], [place], [address] Serum or plasma urea nitroge n measurement (mass/volume)Ordered By: Tylor Hendrickson on 11-17-2024 Urea nitrogen [Mass/Vol] 19 mg/dL Normal 4-19 [facility] Comment on above: Performed By: #### L 100.0100, L500.2500, L501.4021, L503.7505 ####[facility] [address] [place], [address] Sodium levelOrdered By: Tylor Hendrickson on 11-17-2024 Sodium [Moles/Vol] 136 mmol/L Normal 133-[address] [facility] Comment on above: Performed By: #### L 100.0100, L500.2500, L501.4021, L503.7505 ####[facility] [address] [place], [address] Troponin T.cardiac [Mass/vol ume] in Serum or Plasma by High sensitivity methodOrdered By: Tylor Hendrickson on 11-17-2024 Troponin T.cardiac High sensitivity method [Mass/Vol] 34 ng/L High <14 [facility] Troponin T.cardiac High sensitivity method [Mass/Vol] 34 ng/L High <14 [facility] Troponin T.cardiac High sensitivity method [Mass/Vol] 35 ng/L High <14 [facility] White blood cell (WBC) count Ordered By: Tylor Hendrickson on 11-17-2024 WBC (Bld) [#/Vol] 8.3 10*3/uL 4.4-11.[address] [facility] Basic metabolic 2000 panelon 11-05-2024 Anion gap [Moles/Vol] 10 mmol/L Normal 10-20 [facility] Comment on above: Performed By: #### 3 0934-4 #### CURTIS SCHREIBER ([id number]) [facility] ([facility]) [address] [place] [address] Calcium [Mass/Vol] 7.8 mg/dL Low 8.6-10.3 [facility] Comment on above: Performed By: #### 3 0934-4 #### CURTIS SCHREIBER ([id number]) [facility] ([facility]) [address] [place] [address] Chloride [Moles/Vol] 101 mmol/L Normal 98-107 [facility] Comment on above: Performed By: #### 3 0934-4 #### CURTIS SCHREIBER ([id number]) [facility] ([facility]) [address] [place] [address] CO2 [Moles/Vol] 28 mmol/L Normal 21-32 [facility] Comment on above: Performed By: #### 3 0934-4 #### CURTIS SCHREIBER ([id number]) [facility] ([facility]) [address] [place] [address] Creatinine [Mass/Vol] 0.81 mg/dL Normal 0.50-1.05 [facility] Comment on above: Performed By: #### 3 0934-4 #### CURTIS SCHREIBER ([id number]) [facility] ([facility]) [address] [place] [address] Glomerular filtration rate/1.73 sq M.predicted 70 mL/min/1.73m*2 Normal >60 [facility] Comment on above: Result Comment: Calc ulations of estimated GFR are performed using the 2020 CKD-EPI Study Refit equation without the race variable for the IDMS-Traceable creatinine methods. https://jasn.asnjournals.org/content/early//ASN.2020 705922 Performed By: #### 3 0934-4 #### CURTIS SCHREIBER ([id number]) [facility] ([facility]) [facility] [place] [address] Glucose [Mass/Vol] 95 mg/dL Normal 74-99 [facility] Comment on above: Performed By: #### 3 0934-4 #### CURTIS SCHREIBER ([id number]) [facility] ([facility]) [address] [place] [address] Potassium [Moles/Vol] 5.0 mmol/L Normal 3.5-5.3 [facility] Comment on above: Performed By: #### 3 0934-4 #### CURTIS SCHREIBER ([id number]) [facility] ([facility]) [address] [place] [address] Sodium [Moles/Vol] 134 mmol/L Low 136-145 [facility] Comment on above: Performed By: #### 3 0934-4 #### CURTIS SCHREIBER ([id number]) [facility] ([facility]) [address] [place] [address] Urea nitrogen [Mass/Vol] 27 mg/dL High 6-23 [facility] Comment on above: Performed By: #### 3 0934-4 #### CURTIS SCHREIBER ([id number]) [facility] ([facility]) [address] [place] [address] Comprehensive metabolic 2000 panelon 10-29-2024 Albumin BCP dye [Mass/Vol] 3.2 g/dL Low 3.4-5.0 [facility] Comment on above: Performed By: #### 3 0934-4 #### CURTIS SCHREIBER ([id number]) [facility] ([facility]) [address] [place] [address] ALP [Catalytic activity/Vol] 110 U/L Normal 33-136 [facility] Comment on above: Performed By: #### 3 0934-4 #### CURTIS SCHREIBER ([id number]) [facility] ([facility]) [address] [place] [address] ALT With P-5'-P [Catalytic activity/Vol] 12 U/L Normal 7-45 [facility] Comment on above: Result Comment: Bobbi ents treated with Sulfasalazine may generate falsely decreased results for ALT. Performed By: #### 3 0934-4 #### CURTIS SCHREIBER ([id number]) [facility] ([facility]) [address] [place] [address] Anion gap [Moles/Vol] 12 mmol/L Normal 10-20 [facility] Comment on above: Performed By: #### 3 34-4 #### CURTIS SCHREIBER ([id number]) [facility] ([facility]) [address] [place] [address] AST With P-5'-P [Catalytic activity/Vol] 14 U/L Normal 9-39 [facility] Comment on above: Performed By: #### 3 34-4 #### CURTIS SCHREIBER ([id number]) [facility] ([facility]) [address] [place] [address] Bilirubin [Mass/Vol] 0.4 mg/dL Normal 0.0-1.2 [facility] Comment on above: Performed By: #### 3 34-4 #### CURTIS SCHREIBER ([id number]) [facility] ([facility]) [address] [place] [address] Calcium [Mass/Vol] 7.9 mg/dL Low 8.6-10.3 [facility] Comment on above: Performed By: #### 3 34-4 #### CURTIS SCHREIBER ([id number]) [facility] ([facility]) [address] [place] [address] Chloride [Moles/Vol] 100 mmol/L Normal 98-107 [facility] Comment on above: Performed By: #### 3 34-4 #### CURTIS SCHREIBER ([id number]) [facility] ([facility]) [address] [place] [address] CO2 [Moles/Vol] 26 mmol/L Normal 21-32 [facility] Comment on above: Performed By: #### 3 34-4 #### CURTIS SCHREIBER ([id number]) [facility] ([facility]) [address] [place] [address] Creatinine [Mass/Vol] 1.08 mg/dL High 0.50-1.05 [facility] Comment on above: Performed By: #### 3 34-4 #### CURTIS SCHREIBER ([id number]) [facility] ([facility]) [address] [place] [address] Glomerular filtration rate/1.73 sq M.predicted 50 mL/min/1.73m*2 Low >60 [facility] Comment on above: Result Comment: Calc ulations of estimated GFR are performed using the 2020 CKD-EPI Study Refit equation without the race variable for the IDMS-Traceable creatinine methods. https://jasn.asnjournals.org/content/early//ASN.2020 447611 Performed By: #### 3 0934-4 #### CURTIS SCHREIBER ([id number]) [facility] ([facility]) [address] [place] [address] Glucose [Mass/Vol] 91 mg/dL Normal 74-99 [facility] Comment on above: Performed By: #### 3 0934-4 #### CURTIS SCHREIBER ([id number]) [facility] ([facility]) [address] [place] [address] Potassium [Moles/Vol] 5.3 mmol/L Normal 3.5-5.3 [facility] Comment on above: Performed By: #### 3 0934-4 #### CURTIS SCHREIBER ([id number]) [facility] ([facility]) [facility] [place] [address] Protein [Mass/Vol] 5.1 g/dL Low 6.4-8.2 [facility] Comment on above: Performed By: #### 3 0934-4 #### CURTIS SCHREIBER ([id number]) [facility] ([facility]) [facility] [place] [address] Sodium [Moles/Vol] 133 mmol/L Low 136-145 [facility] Comment on above: Performed By: #### 3 0934-4 #### CURTIS SCHREBIER ([id number]) [facility] ([facility]) [facility] [place] [address] Urea nitrogen [Mass/Vol] 25 mg/dL High 6-23 [facility] Comment on above: Performed By: #### 3 0934-4 #### CURTIS SCHREIBER ([id number]) [facility] ([facility]) [address] [place] [address] Bacteria identifiedon 2024 Bacteria identified Cx Nom (U) Test: Urine Culture Specimen Source: Clean Catch/Voided Specimen Type: Urine Specimen Date: 10/22/2024657 Result Date: 10/23/2024731 Result Status: Final result Abnormal: No Resulting Lab: [facility] [id number] [place] [address] CULTURE No growth Normal [facility] Comment on above: Performed By: #### 3 0934-4 #### CURTIS SCHREIBER ([id number]) [facility] ([facility]) [address] [place] [address] CBC panel Auto (Bld)on 10-22 Erythrocyte distribution width (RBC) [Ratio] 14.2 % Normal 11.5-14.5 [facility] Comment on above: Performed By: #### 3 0934-4 #### CURTIS SCHREIBER ([id number]) [facility] ([facility]) [address] [place] [address] Hematocrit (Bld) [Volume fraction] 31.5 % Low 36.0-46.0 [facility] Comment on above: Performed By: #### 3 0934-4 #### CURTIS SCHREIBER ([id number]) [facility] ([facility]) [address] [place] [address] Hemoglobin (Bld) [Mass/Vol] 10.0 g/dL Low 12.0-16.0 [facility] Comment on above: Performed By: #### 3 0934-4 #### CURTIS SCHREIBER ([id number]) [facility] ([facility]) [address] [place] [address] MCH (RBC) [Entitic mass] 28.7 pg Normal 26.0-34.0 [facility] Comment on above: Performed By: #### 3 0934-4 #### CURTIS SCHREIBER ([id number]) [facility] ([facility]) [address] [place] [address] MCHC (RBC) [Mass/Vol] 31.7 g/dL Low 32.0-36.0 [facility] Comment on above: Performed By: #### 3 34-4 #### CURTIS SCHREIBER ([id number]) [facility] ([facility]) [address] [place], [place] [address] MCV (RBC) [Entitic vol] 90 fL Normal 80-100 [facility] Comment on above: Performed By: #### 3 34-4 #### CURTIS SCHREIBER ([id number]) [facility] ([facility]) [address] [place] [address] Nucleated RBC/100 WBC (Bld) [Ratio] 0.0 /100 WBCs Normal 0.0-0.0 [facility] Comment on above: Performed By: #### 3 34-4 #### CURTIS SCHREIBER ([id number]) [facility] ([facility]) [address] [place] [address] Platelets (Bld) [#/Vol] 424 x10*3/uL Normal 150-450 [facility] Comment on above: Performed By: #### 3 34-4 #### CURTIS SCHREIBER ([id number]) [facility] ([facility]) [address] [place] [address] 365[address] RBC (Bld) [#/Vol] 3.49 x10*6/uL Low 4.00-5.20 [facility] Comment on above: Performed By: #### 3 34-4 #### CURTIS SCHREIBER ([id number]) [facility] ([facility]) [address] [place] [address] WBC (Bld) [#/Vol] 8.5 x10*3/uL Normal 4.4-11.3 [facility] Comment on above: Performed By: #### 3 0934-4 #### CURTIS SCHREIBER ([id number]) [facility] ([facility]) [address] [place] [address] Comprehensive metabolic 2000 panelon 10-22-2024 Albumin BCP dye [Mass/Vol] 3.4 g/dL Normal 3.4-5.0 [facility] Comment on above: Performed By: #### 3 0934-4 #### CURTIS SCHREIBER ([id number]) [facility] ([facility]) [address] [place] [address] ALP [Catalytic activity/Vol] 84 U/L Normal 33-136 [facility] Comment on above: Performed By: #### 3 34-4 #### CURTIS SCHREIBER ([id number]) [facility] ([facility]) [address] [place], [place] [address] ALT With P-5'-P [Catalytic activity/Vol] 17 U/L Normal 7-45 [facility] Comment on above: Result Comment: Bobbi ents treated with Sulfasalazine may generate falsely decreased results for ALT. Performed By: #### 3 34-4 #### CURTIS SCHREIBER ([id number]) [facility] ([facility]) [address] [place] [address] Anion gap [Moles/Vol] 13 mmol/L Normal 10-20 [facility] Comment on above: Performed By: #### 3 34-4 #### CURTIS SCHREIBER ([id number]) [facility] ([facility]) [facility] [place] [address] AST With P-5'-P [Catalytic activity/Vol] 17 U/L Normal 9-39 [facility] Comment on above: Performed By: #### 3 34-4 #### CURTIS SCHREIBER ([id number]) [facility] ([facility]) [facility] [place] [address] Bilirubin [Mass/Vol] 0.5 mg/dL Normal 0.0-1.2 [facility] Comment on above: Performed By: #### 3 0934-4 #### CURTIS SCHREIBER ([id number]) [facility] ([facility]) [address] [place] [address] Calcium [Mass/Vol] 7.6 mg/dL Low 8.6-10.3 [facility] Comment on above: Performed By: #### 3 0934-4 #### CURTIS SCHREIBER ([id number]) [facility] ([facility]) [address] [place] [address] Chloride [Moles/Vol] 93 mmol/L Low 98-107 [facility] Comment on above: Performed By: #### 3 0934-4 #### CURTIS SCHREIBER ([id number]) [facility] ([facility]) [address] [place] [address] CO2 [Moles/Vol] 26 mmol/L Normal 21-32 [facility] Comment on above: Performed By: #### 3 0934-4 #### CURTIS SCHREIBER ([id number]) [facility] ([facility]) [address] [place] [address] [id number] Creatinine [Mass/Vol] 1.19 mg/dL High 0.50-1.05 [facility] Comment on above: Performed By: #### 3 0934-4 #### CURTIS SCHREIBER ([id number]) [facility] ([facility]) [address] [place] [address] 33833 Glomerular filtration rate/1.73 sq M.predicted 44 mL/min/1.73m*2 Low >60 [facility] Comment on above: Result Comment: Calc ulations of estimated GFR are performed using the 2020 CKD-EPI Study Refit equation without the race variable for the IDMS-Traceable creatinine methods. https://jasn.asnjournals.org/content/early//ASN.2020 518554 Performed By: #### 3 0934-4 #### CURTIS SCHREIBER ([id number]) [facility] ([facility]) [facility] [place] [address] Glucose [Mass/Vol] 98 mg/dL Normal 74-99 [facility] Comment on above: Performed By: #### 3 0934-4 #### CURTIS SCHREIBER ([id number]) [facility] ([facility]) [address] [place] [address] 22228 Potassium [Moles/Vol] 4.6 mmol/L Normal 3.5-5.3 [facility] Comment on above: Performed By: #### 3 34-4 #### CURTIS SCHREIBER ([id number]) [facility] ([facility]) [address] [place] [address] 76887 Protein [Mass/Vol] 5.5 g/dL Low 6.4-8.2 [facility] Comment on above: Performed By: #### 3 34-4 #### CURTIS SCHREIBER ([id number]) [facility] ([facility]) [address] [place] [address] 76498 Sodium [Moles/Vol] 127 mmol/L Low 136-145 [facility] Comment on above: Performed By: #### 3 34-4 #### CURTIS SCHREIBER ([id number]) [facility] ([facility]) [address] [place], [place] [phone] Urea nitrogen [Mass/Vol] 46 mg/dL High 6-23 [facility] Comment on above: Performed By: #### 3 34-4 #### CURTIS SCHREIBER ([id number]) [facility] ([facility]) [address] [place] [address] 58799 Urinalysis complete panel (U )on 10-22-2024 Appearance (U) Clear Normal Clear [facility] Comment on above: Performed By: #### 3 34-4 #### CURTIS SCHREIBER ([id number]) [facility] ([facility]) [address] [place] [address] 71420 Bilirubin (U) [Mass/Vol] Negative Normal NEGATIVE [facility] Comment on above: Performed By: #### 3 34-4 #### CURTIS SCHREIBER ([id number]) [facility] ([facility]) [address] [place] [address] 61886 Color (U) Yellow Normal Light-Yellow , Yellow, Dark-Yellow [facility] Comment on above: Performed By: #### 3 34-4 #### CURTIS SCHREIBER ([id number]) [facility] ([facility]) [address] [place] [address] 64452 Glucose Auto test strip (U) [Mass/Vol] Normal Normal Normal [facility] Comment on above: Performed By: #### 3 0934-4 #### CURTIS SCHREIBER ([id number]) [facility] ([facility]) [address] [place] [address] 01023 Ketones (U) [Mass/Vol] Negative Normal NEGATIVE Un [facility] Comment on above: Performed By: #### 3 34-4 #### CURTIS SCHREIBER ([id number]) [facility] ([facility]) [address] [place], [place] [address] Leukocyte esterase Auto test strip Ql (U) Negative Normal NEGATIVE [facility] Comment on above: Performed By: #### 3 34-4 #### CURTIS SCHREIBER ([id number]) [facility] ([facility]) [address] [place] [address] Nitrite Auto test strip Ql (U) Negative Normal NEGATIVE [facility] Comment on above: Performed By: #### 3 34-4 #### CURTIS SCHREIBER ([id number]) [facility] ([facility]) [address] [place] [address] 28721 pH (U) 5.5 [pH] Normal 5.0, 5.5, 6.0, 6.5, 7.0, 7.5, 8.0 [facility] Comment on above: Performed By: #### 3 34-4 #### CURTIS SCHREIBER ([id number]) [facility] ([facility]) [address] [place] [address] 79574 Protein (U) [Mass/Vol] 20 (TRACE) Normal NEGAT HEMANT, 10 (TRACE), 20 (TRACE) [facility] Comment on above: Performed By: #### 3 0934-4 #### CURTIS SCHREIBER ([id number]) [facility] ([facility]) [address] [place] [address] 68464 RBC (U) [#/Vol] Negative Normal NEGATIVE [facility] Comment on above: Performed By: #### 3 0934-4 #### CURTIS SCHREIBER ([id number]) [facility] ([facility]) [address] [place] [address] Specific gravity (U) [Rel density] 1.015 Normal 1.005-1.035 [facility] Comment on above: Performed By: #### 3 0934-4 #### CURTIS SCHREIBER ([id number]) [facility] ([facility]) [address] [place] [address] Urobilinogen (U) [Mass/Vol] Normal Normal Normal [facility] Comment on above: Performed By: #### 3 0934-4 #### CURTIS SCHREIBER ([id number]) [facility] ([facility]) [address] [place] [address] Urinalysis microscopic panel Auto Ql (U)on 10-22-2024 Crystals.amorphous Computer assisted (U) [#/Area] 1+ /HPF Normal NONE, 1+, 2+ [facility] Comment on above: Performed By: #### 3 0934-4 #### CURTIS SCHREIBER ([id number]) [facility] ([facility]) [address] [place] [address] Hyaline casts Auto (Urine sed) [#/Area] 1+ /LPF Abnormal NONE [facility] Comment on above: Performed By: #### 3 0934-4 #### CURTIS SCHREIBER ([id number]) [facility] ([facility]) [address] [place] [address] Leukocyte clumps Auto (Urine sed) [#/Area] RARE Normal Reference range not established. [facility] Comment on above: Performed By: #### 3 0934-4 #### CURTIS SCHREIBER ([id number]) [facility] ([facility]) [address] [place] [address] RBC Auto (Urine sed) [#/Area] 1-2 Normal NONE, 1-2, 3-5 [facility] Comment on above: Performed By: #### 3 0934-4 #### CURTIS SCHREIBER ([id number]) [facility] ([facility]) [address] [phone] WBC Auto (Urine sed) [#/Area] 1-5 Normal 1-5, NONE [facility] Comment on above: Performed By: #### 3 0934-4 #### ACEVEDO ABDOUL ([id number]) [facility] ([facility]) [facility] [place] [address] Comprehensive metabolic 2000 panelon 10-13-2024 Albumin BCP dye [Mass/Vol] 3.7 g/dL 3.4 - 5.0 g/dL [facility] ALP [Catalytic activity/Vol] 81 U/L 33 - 136 U/L [facility] ALT With P-5'-P [Catalytic activity/Vol] 12 U/L 7 - 45 U/L [facility] Comment on above: Patients treated wit h Sulfasalazine may generate falsely decreased results for ALT. Anion gap [Moles/Vol] 14 mmol/L 10 - 2 0 mmol/L [facility] AST With P-5'-P [Catalytic activity/Vol] 15 U/L 9 - 39 U/L [facility] Bilirubin [Mass/Vol] 0.5 mg/dL 0.0 - 1 .2 mg/dL [facility] Calcium [Mass/Vol] 8.1 mg/dL Low 8.6 - 10. 3 mg/dL [facility] Chloride [Moles/Vol] 98 mmol/L 98 - 10 7 mmol/L [facility] CO2 [Moles/Vol] 24 mmol/L 21 - 32 mmol/L [facility] Creatinine [Mass/Vol] 1.52 mg/dL High 0.50 - 1.05 mg/dL [facility] GFR/1.73 sq M.predicted among non-blacks MDRD (S/P/Bld) [Vol rate/Area] 33 mL/min/{1.73_m2} Low - PINF [facility] Comment on above: Calculations of michael mated GFR are performed using the 2020 CKD-EPI Study Refit equation without the race variable for the IDMS-Traceable creatinine methods. https://jasn.asnjournals.org/content//ASN.2020 859526 Glucose [Mass/Vol] 128 mg/dL High 74 - 99 mg/dL [facility] Interpretation and review of laboratory results Abnormal [facility] Potassium [Moles/Vol] 4.8 mmol/L 3.5 - 5.3 mmol/L [facility] Protein [Mass/Vol] 6.4 g/dL 6.4 - 8.2 g/dL [facility] Sodium [Moles/Vol] 131 mmol/L Low 136 - 145 mmol/L [facility] Urea nitrogen [Mass/Vol] 59 mg/dL High 6 - 23 mg/dL [facility] Lipaseon 10-13-2024 Lipase [Catalytic activity/Vol] 48 U/L 9 - 82 U/L [facility] Lipase [Catalytic activity/V ol]on 10-13-2024 Interpretation and review of laboratory results Normal [facility] Venipuncture immediately after or during the administration of Metamizole may lead to falsely low results. Testing should be performed immediately prior to Metamizole dosing. [facility] XR Chest Single viewon 10-13 Cardiomegaly with mild interstitial prominence which could be chronic or relate to component developing interstitial edema/CHF. Correlate clinically. Deformity of the left humeral neck suspicious for age indeterminate fracture. Correlate with history and symptomatology for the need for further evaluation with dedicated shoulder/humeral x-rays. MACRO: None Signed by: Erin Garrett 10/13/2024 12:00 AM Dictation workstation: [id number] [facility] MMODAL Interpreted By: Erin Garrett, STUDY: XR CHEST 1 VIEW; 10/12/2024 11:40 pm INDICATION: Signs/Symptoms:dyspn ea. COMPARISON: None. ACCESSION NUMBER(S): [id number] ORDERING CLINICIAN: NICHOLE GUERRA FINDINGS: CARDIOMEDIASTINAL SILHOUETTE: Cardiac silhouette is enlarged. Atherosclerotic calcification of the aorta. Mild interstitial prominence. LUNGS: No consolidation, pleural effusion or pneumothorax. ABDOMEN: No remarkable upper abdominal findings. BONES: There is age indeterminate fracture deformity of the left humeral neck. Chronic fracture deformity of the left mid clavicle suspected. MMODAL Erin Garrett MD - 10/13/2024 Interpreted By: Erin Garrett, STUDY: XR CHEST 1 VIEW; 10/12/2024 11:40 pm INDICATION: Signs/Symptoms:dyspn ea. COMPARISON: None. ACCESSION NUMBER(S): [id number] ORDERING CLINICIAN: NICHOLE GUERRA FINDINGS: CARDIOMEDIASTINAL SILHOUETTE: Cardiac silhouette is enlarged. Atherosclerotic calcification of the aorta. Mild interstitial prominence. LUNGS: No consolidation, pleural effusion or pneumothorax. ABDOMEN: No remarkable upper abdominal findings. BONES: There is age indeterminate fracture deformity of the left humeral neck. Chronic fracture deformity of the left mid clavicle suspected. IMPRESSION: Cardiomegaly with mild interstitial prominence which could be chronic or relate to component developing interstitial edema/CHF. Correlate clinically. Deformity of the left humeral neck suspicious for age indeterminate fracture. Correlate with history and symptomatology for the need for further evaluation with dedicated shoulder/humeral x-rays. MACRO: None Signed by: Erin Garrett 10/13/2024 12:00 AM Dictation workstation: [id number] [facility] Work Phone: XR Chest Single viewOrdered By: Erin Garrett on 10-13-2024 [facility] Work Phone: Bacteria identifiedon 2024 Bacteria identified Cx Nom (U) Test: Urine Culture Specimen Source: Clean Catch/Voided Specimen Type: Urine Specimen Date: 10/12/20242340 Result Date: 10/14/2024930 Result Status: Final result Abnormal: No Resulting Lab: [facility] [address] [place] [address] CULTURE Growth indicates contamination with mixed bacterial darci. Repeat culture if clinically indicated. Normal [facility] Comment on above: Performed By: #### 3 0934-4 #### ACEVEDO ABDOUL ([id number]) [facility] ([facility]) [address] [place] [address] CBC W Auto Differential pane l (Bld)on 10-12-2024 Basophils (Bld) [#/Vol] 0.06 10*3/uL [facility] Basophils/100 WBC (Bld) 0.7 % 0.0 - 2.0 % [facility] Eosinophils (Bld) [#/Vol] 0.31 10*3/uL [facility] Eosinophils/100 WBC (Bld) 3.6 % 0.0 - 6.0 % [facility] Erythrocyte distribution width (RBC) [Ratio] 13.9 % 11.5 - 14.5 % [facility] Hematocrit (Bld) [Volume fraction] 31.4 % Low 36.0 - 46.0 % [facility] Hemoglobin (Bld) [Mass/Vol] 9.9 g/dL Low 12.0 - 16.0 g/dL [facility] Immature granulocytes (Bld) [#/Vol] 0.08 10*3/uL [facility] Immature granulocytes/100 WBC (Bld) 0.9 % 0.0 - 0.9 % [facility] Comment on above: Immature Granulocyte Count (IG) includes promyelocytes, myelocytes and metamyelocytes but does not include bands. Percent differential counts (%) should be interpreted in the context of the absolute cell counts (cells/UL). Interpretation and review of laboratory results Abnormal [facility] Lymphocytes (Bld) [#/Vol] 1.77 10*3/uL [facility] Lymphocytes/100 WBC (Bld) 20.3 % 13.0 - 44.0 % [facility] MCH (RBC) [Entitic mass] 29.2 pg 26.0 - 34.0 pg [facility] MCHC (RBC) [Mass/Vol] 31.5 g/dL Low 32.0 - 36.0 g/dL [facility] MCV (RBC) [Entitic vol] 93 fL 80 - 100 fL [facility] Monocytes (Bld) [#/Vol] 0.81 10*3/uL High [facility] Monocytes/100 WBC (Bld) 9.3 % 2.0 - 10.0 % [facility] Neutrophils (Bld) [#/Vol] 5.7 10*3/uL High [facility] Comment on above: Percent differential counts (%) should be interpreted in the context of the absolute cell counts (cells/uL). Neutrophils/100 WBC (Bld) 65.2 % 40.0 - 80.0 % [facility] Nucleated RBC/100 WBC (Bld) [Ratio] 0 % [facility] Platelets (Bld) [#/Vol] 309 10*3/uL [facility] RBC (Bld) [#/Vol] 3.39 10*6/uL Low [facility] WBC (Bld) [#/Vol] 8.7 10*3/uL [facility] Basophils (Bld) [#/Vol] 0.06 x10*3/uL Normal 0.00-0.10 [facility] Comment on above: Performed By: #### 5 7021-8 #### CURTIS SCHREIBER ([id number]) [facility] ([facility]) [address] [place] [address] 65644 Basophils/100 WBC (Bld) 0.7 % Normal 0.0-2.0 [facility] Comment on above: Performed By: #### 5 7021-8 #### CURTIS SCHREIBER ([id number]) [facility] ([facility]) [address] [place] [address] 90977 Eosinophils (Bld) [#/Vol] 0.31 x10*3/uL Normal 0.00-0.40 [facility] Comment on above: Performed By: #### 5 7021-8 #### CURTIS SCHREIBER ([id number]) [facility] ([facility]) [address] [place] [address] 71084 Eosinophils/100 WBC (Bld) 3.6 % Normal 0.0-6.0 [facility] Comment on above: Performed By: #### 5 7021-8 #### CURTIS SCHREIBER ([id number]) [facility] ([facility]) [address] [place] [address] 79987 Erythrocyte distribution width (RBC) [Ratio] 13.9 % Normal 11.5-14.5 [facility] Comment on above: Performed By: #### 5 7021-8 #### CURTIS SCHREIBER ([id number]) [facility] ([facility]) [address] [place] [address] 90247 Hematocrit (Bld) [Volume fraction] 31.4 % Low 36.0-46.0 [facility] Comment on above: Performed By: #### 5 7021-8 #### CURTIS SCHREIBER ([id number]) [facility] ([facility]) [address] [place] [address] 06691 Hemoglobin (Bld) [Mass/Vol] 9.9 g/dL Low 12.0-16.0 [facility] Comment on above: Performed By: #### 5 7021-8 #### CURTIS SCHREIBER ([id number]) [facility] ([facility]) [address] [place] [address] 53185 Immature granulocytes (Bld) [#/Vol] 0.08 x10*3/uL Normal 0.00-0.50 [facility] Comment on above: Performed By: #### 5 7021-8 #### CURTIS SCHREIBER ([id number]) [facility] ([facility]) [address] [place] [address] 00935 Immature granulocytes/100 WBC (Bld) 0.9 % Normal 0.0-0.9 [facility] Comment on above: Result Comment: Breana ture Granulocyte Count (IG) includes promyelocytes, myelocytes and metamyelocytes but does not include bands. Percent differential counts (%) should be interpreted in the context of the absolute cell counts (cells/UL). Performed By: #### 5 7021-8 #### CURTIS SCHREIBER ([id number]) [facility] ([facility]) [address] [place] [address] 64329 Lymphocytes (Bld) [#/Vol] 1.77 x10*3/uL Normal 0.80-3.00 [facility] Comment on above: Performed By: #### 5 7021-8 #### CURTIS SCHREIBER ([id number]) [facility] ([facility]) [address] [place] [address] 36697 Lymphocytes/100 WBC (Bld) 20.3 % Normal 13.0-44.0 [facility] Comment on above: Performed By: #### 5 7021-8 #### CURTIS SCHREIBER ([id number]) [facility] ([facility]) [address] [place] [address] 31112 MCH (RBC) [Entitic mass] 29.2 pg Normal 26.0-34.0 [facility] Comment on above: Performed By: #### 5 7021-8 #### CURTIS SCHREIBER ([id number]) [facility] ([facility]) [address] [place] [address] MCHC (RBC) [Mass/Vol] 31.5 g/dL Low 32.0-36.0 [facility] Comment on above: Performed By: #### 5 7021-8 #### CURTIS SCHREIBER ([id number]) [facility] ([facility]) [address] [place] [address] MCV (RBC) [Entitic vol] 93 fL Normal 80-100 [facility] Comment on above: Performed By: #### 5 7021-8 #### CURTIS SCHREIBER ([id number]) [facility] ([facility]) [address] [place] [address] 40533 Monocytes (Bld) [#/Vol] 0.81 x10*3/uL High 0.05-0.80 [facility] Comment on above: Performed By: #### 5 7021-8 #### CURTIS SCHREIBER ([id number]) [facility] ([facility]) [address] [place] [address] 09788 Monocytes/100 WBC (Bld) 9.3 % Normal 2.0-10.[address] [facility] Comment on above: Performed By: #### 5 7021-8 #### CURTIS SCHREIBER ([id number]) [facility] ([facility]) [address] [place] [address] 17667 Neutrophils (Bld) [#/Vol] 5.70 x10*3/uL High 1.60-5.50 [facility] Comment on above: Result Comment: Perc ent differential counts (%) should be interpreted in the context of the absolute cell counts (cells/uL). Performed By: #### 5 7021-8 #### CURTIS SCHREIBER ([id number]) [facility] ([facility]) [address] [place] [address] 25951 Neutrophils/100 WBC (Bld) 65.2 % Normal 40.0-80.0 [facility] Comment on above: Performed By: #### 5 7021-8 #### CURTIS SCHREIBER ([id number]) [facility] ([facility]) [address] [place] [address] 37283 Nucleated RBC/100 WBC (Bld) [Ratio] 0.0 /100 WBCs Normal 0.0-0.0 [facility] Comment on above: Performed By: #### 5 7021-8 #### CURTIS SCHREIBER ([id number]) [facility] ([facility]) [address] [place] [address] 01159 Platelets (Bld) [#/Vol] 309 x10*3/uL Normal 150-450 [facility] Comment on above: Performed By: #### 5 7021-8 #### CURTIS SCHREIBER ([id number]) [facility] ([facility]) [address] [place] [address] 48321 RBC (Bld) [#/Vol] 3.39 x10*6/uL Low 4.00-5.20 [facility] Comment on above: Performed By: #### 5 7021-8 #### CURTIS SCHREIBER ([id number]) [facility] ([facility]) [address] [place] [address] 13753 WBC (Bld) [#/Vol] 8.7 x10*3/uL Normal 4.4-11.3 [facility] Comment on above: Performed By: #### 5 7021-8 #### CURTIS SCHREIBER ([id number]) [facility] ([facility]) [address] [place] [address] 51149 CBC panel Auto (Bld)on 10-12 Erythrocyte distribution width (RBC) [Ratio] 13.7 % Normal 11.5-14.5 [facility] Comment on above: Performed By: #### 5 8410-2 #### CURTIS SCHREIBER ([id number]) [facility] ([facility]) [address] [place] [address] 54325 Hematocrit (Bld) [Volume fraction] 34.2 % Low 36.0-46.0 [facility] Comment on above: Performed By: #### 5 8410-2 #### CURTIS SCHREIBER ([id number]) [facility] ([facility]) [address] [place] [address] 52732 Hemoglobin (Bld) [Mass/Vol] 10.6 g/dL Low 12.0-16.0 [facility] Comment on above: Performed By: #### 5 8410-2 #### CURTIS SCHREIBER ([id number]) [facility] ([facility]) [address] [place] [address] MCH (RBC) [Entitic mass] 28.6 pg Normal 26.0-34.0 [facility] Comment on above: Performed By: #### 5 8410-2 #### CURTIS SCHREIBER ([id number]) [facility] ([facility]) [address] [place] [address] 22999 MCHC (RBC) [Mass/Vol] 31.0 g/dL Low 32.0-36.0 [facility] Comment on above: Performed By: #### 5 8410-2 #### CURTIS SCHREIBER ([id number]) [facility] ([facility]) [address] [place] [address] 09093 MCV (RBC) [Entitic vol] 92 fL Normal 80-100 [facility] Comment on above: Performed By: #### 5 8410-2 #### CURTIS SCHREIBER ([id number]) [facility] ([facility]) [address] [place] [address] 83857 Nucleated RBC/100 WBC (Bld) [Ratio] 0.0 /100 WBCs Normal 0.0-0.0 [facility] Comment on above: Performed By: #### 5 8410-2 #### CURTIS SCHREIBER ([id number]) [facility] ([facility]) [address] [place] [address] Platelets (Bld) [#/Vol] 335 x10*3/uL Normal 150-450 [facility] Comment on above: Performed By: #### 5 8410-2 #### CURTIS SCHREIBER ([id number]) [facility] ([facility]) [address] [place] [address] RBC (Bld) [#/Vol] 3.70 x10*6/uL Low 4.00-5.20 [facility] Comment on above: Performed By: #### 5 8410-2 #### CURTIS SCHREIBER ([id number]) [facility] ([facility]) [address] [place] [address] WBC (Bld) [#/Vol] 8.0 x10*3/uL Normal 4.4-11.3 [facility] Comment on above: Performed By: #### 5 8410-2 #### CURTIS SCHREIBER ([id number]) [facility] ([facility]) [address] [place] [address] Comprehensive metabolic 2000 panelon 10-12-2024 Albumin BCP dye [Mass/Vol] 3.7 g/dL Normal 3.4-5.0 [facility] Comment on above: Performed By: #### 2 4323-8 #### CURTIS SCHREIBER ([id number]) [facility] ([facility]) [address] [place] [address] ALP [Catalytic activity/Vol] 81 U/L Normal 33-136 [facility] Comment on above: Performed By: #### 2 4323-8 #### CURTIS SCHREIBER ([id number]) [facility] ([facility]) [address] [place] [address] ALT With P-5'-P [Catalytic activity/Vol] 12 U/L Normal 7-45 [facility] Comment on above: Result Comment: Bobbi ents treated with Sulfasalazine may generate falsely decreased results for ALT. Performed By: #### 2 4323-8 #### CURTIS SCHREIBER ([id number]) [facility] ([facility]) [address] [place] [address] Anion gap [Moles/Vol] 14 mmol/L Normal 10-20 [facility] Comment on above: Performed By: #### 2 4323-8 #### CURTIS SCHREIBER ([id number]) [facility] ([facility]) [address] [place] [address] AST With P-5'-P [Catalytic activity/Vol] 15 U/L Normal 9-39 [facility] Comment on above: Performed By: #### 2 4323-8 #### CURTIS SCHREIBER ([id number]) [facility] ([facility]) [address] [place] [address] Bilirubin [Mass/Vol] 0.5 mg/dL Normal 0.0-1.2 [facility] Comment on above: Performed By: #### 2 4322-8 #### CURTIS SCHREIBER ([id number]) [facility] ([facility]) [address] [place] [address] Calcium [Mass/Vol] 8.1 mg/dL Low 8.6-10.3 [facility] Comment on above: Performed By: #### 2 4322-8 #### CURTIS SCHREIBER ([id number]) [facility] ([facility]) [facility] [place] [address] Chloride [Moles/Vol] 98 mmol/L Normal 98-107 [facility] Comment on above: Performed By: #### 2 4322-8 #### CURTIS SCHREIBER ([id number]) [facility] ([facility]) [facility] [place] [address] CO2 [Moles/Vol] 24 mmol/L Normal 21-32 [facility] Comment on above: Performed By: #### 2 4322-8 #### CURTIS SCHREIBER ([id number]) [facility] ([facility]) [address] [place] [address] 89965 Creatinine [Mass/Vol] 1.52 mg/dL High 0.50-1.05 [facility] Comment on above: Performed By: #### 2 4322-8 #### CURTIS SCHREIBER ([id number]) [facility] ([facility]) [facility] [place] [address] Glomerular filtration rate/1.73 sq M.predicted 33 mL/min/1.73m*2 Low >60 [facility] Comment on above: Result Comment: Calc ulations of estimated GFR are performed using the 2020 CKD-EPI Study Refit equation without the race variable for the IDMS-Traceable creatinine methods. https://jasn.asnjournals.org/content/early//ASN.2020 230799 Performed By: #### 2 4323-8 #### CURTIS SCHREIBER ([id number]) [facility] ([facility]) [address] [place] [address] 93992 Glucose [Mass/Vol] 128 mg/dL High 74-99 [facility] Comment on above: Performed By: #### 2 432-8 #### CURTIS SCHREIBER ([id number]) [facility] ([facility]) [address] [place] [address] 20317 Potassium [Moles/Vol] 4.8 mmol/L Normal 3.5-5.3 [facility] Comment on above: Performed By: #### 2 4323-8 #### CURTIS SCHREIBER ([id number]) [facility] ([facility]) [address] [place] [address] 50820 Protein [Mass/Vol] 6.4 g/dL Normal 6.4-8.2 [facility] Comment on above: Performed By: #### 2 4323-8 #### CURTIS SCHREIBER ([id number]) [facility] ([facility]) [address] [place] [address] 02346 Sodium [Moles/Vol] 131 mmol/L Low 136-145 [facility] Comment on above: Performed By: #### 2 4323-8 #### CURTIS SCHREIBER ([id number]) [facility] ([facility]) [address] [place] [address] 53527 Urea nitrogen [Mass/Vol] 59 mg/dL High 6-23 [facility] Comment on above: Performed By: #### 2 4323-8 #### CURTIS SCHREIBER ([id number]) [facility] ([facility]) [address] [place] [address] 29504 Albumin BCP dye [Mass/Vol] 3.9 g/dL Normal 3.4-5.0 [facility] Comment on above: Performed By: #### 2 4323-8 #### CURTIS SCHREIBER ([id number]) [facility] ([facility]) [address] [place] [address]4924 ALP [Catalytic activity/Vol] 84 U/L Normal 33-136 [facility] Comment on above: Performed By: #### 2 432-8 #### CURTIS SCHREIBER ([id number]) [facility] ([facility]) [address] [place] [address] 30306 ALT With P-5'-P [Catalytic activity/Vol] 13 U/L Normal 7-45 [facility] Comment on above: Result Comment: Bobbi ents treated with Sulfasalazine may generate falsely decreased results for ALT. Performed By: #### 2 432-8 #### CURTIS SCHREIBER ([id number]) [facility] ([facility]) [address] [place] [address] 53897 Anion gap [Moles/Vol] 15 mmol/L Normal 10-20 [facility] Comment on above: Performed By: #### 2 432-8 #### CURTIS SCHREIBER ([id number]) [facility] ([facility]) [address] [place] [address] 44524 AST With P-5'-P [Catalytic activity/Vol] 20 U/L Normal 9-39 [facility] Comment on above: Performed By: #### 2 4323-8 #### CURTIS SCHREIBER ([id number]) [facility] ([facility]) [address] [place] [address] 66438 Bilirubin [Mass/Vol] 0.5 mg/dL Normal 0.0-1.2 [facility] Comment on above: Performed By: #### 2 4323-8 #### CURTIS SCHREIBER ([id number]) [facility] ([facility]) [address] [place] [address] Calcium [Mass/Vol] 8.2 mg/dL Low 8.6-10.3 [facility] Comment on above: Performed By: #### 2 4323-8 #### CURTIS SCHREIBER ([id number]) [facility] ([facility]) [address] [place] [address] Chloride [Moles/Vol] 99 mmol/L Normal 98-107 [facility] Comment on above: Performed By: #### 2 4323-8 #### CURTIS SCHREIBER ([id number]) [facility] ([facility]) [address] [place] [address] 43505 CO2 [Moles/Vol] 24 mmol/L Normal 21-32 [facility] Comment on above: Performed By: #### 2 4323-8 #### CURTIS SCHREIBER ([id number]) [facility] ([facility]) [address] [place] [address] 33174 Creatinine [Mass/Vol] 0.91 mg/dL Normal 0.50-1.05 [facility] Comment on above: Performed By: #### 2 4323-8 #### CURTIS SCHREIBER ([id number]) [facility] ([facility]) [address] [place] [address] 90058 Glomerular filtration rate/1.73 sq M.predicted 61 mL/min/1.73m*2 Normal >60 [facility] Comment on above: Result Comment: Calc ulations of estimated GFR are performed using the 2020 CKD-EPI Study Refit equation without the race variable for the IDMS-Traceable creatinine methods. https://jasn.asnjournals.org/content/early//ASN.2020 526785 Performed By: #### 2 4323-8 #### CURTIS SCHREIBER ([id number]) [facility] ([facility]) [facility] [place] [address] Glucose [Mass/Vol] 102 mg/dL High 74-99 [facility] Comment on above: Performed By: #### 2 4323-8 #### CURTIS SCHREIBER ([id number]) [facility] ([facility]) [address] [place] [address] 18651 Potassium [Moles/Vol] 4.8 mmol/L Normal 3.5-5.3 [facility] Comment on above: Performed By: #### 2 4323-8 #### CURTIS SCHREIBER ([id number]) [facility] ([facility]) [address] [place] [address] 09170 Protein [Mass/Vol] 6.3 g/dL Low 6.4-8.2 [facility] Comment on above: Performed By: #### 2 4323-8 #### CURTIS SCHREIBER ([id number]) [facility] ([facility]) [address] [place] [address] 65274 Sodium [Moles/Vol] 133 mmol/L Low 136-145 [facility] Comment on above: Performed By: #### 2 4323-8 #### CURTIS SCHREIBER ([id number]) [facility] ([facility]) [address] [place] [address] 36377 Urea nitrogen [Mass/Vol] 41 mg/dL High 6-23 [facility] Comment on above: Performed By: #### 2 4323-8 #### CURTIS SCHREIBER ([id number]) [facility] ([facility]) [address] [place] [address] 43186 ECG 12-LEADon 10-12-2024 ECG 12-LEAD Ventricular Rate 91 Atrial Rate 91 P-R Interval 178 QRS Duration 122 Q-T Interval 378 QTC Calculation(Bazett) 464 P Gardena 51 R Gardena -27 T Gardena 38 QRS Count 14 Q Onset 221 P Onset 132 P Offset 179 T Offset 410 QTC Fredericia 434 Diagnosis Normal sinus rhythm Right bundle branch block Minimal voltage criteria for LVH, may be normal variant ( R in aVL ) Septal infarct , age undetermined Abnormal ECG See ED provider note for full interpretation and clinical correlation Confirmed by Lu De La Garza ([id number]) on 10/13/2024 6:20:48 PM Normal [facility] Natriuretic peptide B [Mass/ Vol]on 10-12-2024 Natriuretic peptide B (Bld) [Mass/Vol] 48 pg/mL Normal 0-99 [facility] Comment on above: Order Comment: <100 pg/mL - Heart failure unlikely 100-299 pg/mL - Intermediate probability of acute heart failure exacerbation. Correlate with clinical context and patient history. >=300 pg/mL - Heart Failure likely. Correlate with clinical context and patient history. BNP testing is performed using different testing methodology at [facility] than [facility] other [facility] Direct result comparisons should only be made within the same method. Performed By: #### 3 0934-4 #### CURTIS SCHREIBER ([id number]) [facility] ([facility]) [address] [place] [address] No Panel Informationon 10-12 Interpretation and review of laboratory results Abnormal [facility] Thyrotropinon 10-12-2024 TSH Qn 0.61 m[IU]/L Normal 0.44-3.98 [facility] Comment on above: Order Comment: TSH t esting is performed using different testing methodology at [facility] than [facility] other [facility]. Direct result comparisons should only be made within the same method. Performed By: #### 3 016-3 #### CURTIS SCHREIBER ([id number]) [facility] ([facility]) [address] [place] [address] Triacylglycerol lipaseon Lipase [Catalytic activity/Vol] 48 U/L Normal 9-82 [facility] Comment on above: Order Comment: Venip uncture immediately after or during the administration of Metamizole may lead to falsely low results. Testing should be performed immediately prior to Metamizole dosing. Performed By: #### 3 040-3 #### CURTIS SCHREIBER ([id number]) [facility] ([facility]) [address] [place] [address] Urinalysis complete W Reflex Culture panel (U)on 10-12-2024 Appearance (U) Turbid Abnormal Clear [facility] Bilirubin (U) [Mass/Vol] Negative NEGATIVE mg/dL [facility] Color (U) Light-Yellow Light-Yellow , Yellow, Dark-Yellow [facility] Glucose Auto test strip (U) [Mass/Vol] Normal Normal mg/dL [facility] Ketones (U) [Mass/Vol] Negative NEGAT HEMANT mg/dL [facility] Leukocyte esterase Auto test strip Ql (U) 500 Bryan/uL Abnormal NEGATIVE [facility] Nitrite Auto test strip Ql (U) Negative NEGATIVE [facility] pH (U) 5.5 [pH] 5.0, 5.5, 6.0, 6.5, 7.0, 7.5, 8.0 [facility] Protein (U) [Mass/Vol] 30 (1+) Abnormal NEGAT HEMANT, 10 (TRACE), 20 (TRACE) mg/dL [facility] RBC (U) [#/Vol] Negative NEGATIVE mg/dL [facility] Specific gravity (U) [Rel density] 1.019 1.005 - 1.035 [facility] Urobilinogen (U) [Mass/Vol] Normal Normal mg/dL [facility] Appearance (U) Turbid Normal Clear [facility] Comment on above: Performed By: #### 5 8077-9 #### CURTIS SCHREIBER ([id number]) [facility] ([facility]) [address] [place] [address] 59603 Bilirubin (U) [Mass/Vol] Negative Normal NEGATIVE [facility] Comment on above: Performed By: #### 5 8077-9 #### CURTIS SCHREIBER ([id number]) [facility] ([facility]) [address] [place] [address] 60161 Color (U) Light-Yellow Normal Light-Yellow , Yellow, Dark-Yellow [facility] Comment on above: Performed By: #### 5 8077-9 #### CURTIS SCHREIBER ([id number]) [facility] ([facility]) [address] [place] [address] 29422 Glucose Auto test strip (U) [Mass/Vol] Normal Normal Normal [facility] Comment on above: Performed By: #### 5 8077-9 #### CURTIS SCHREIBER ([id number]) [facility] ([facility]) [address] [place] [address] 94341 Ketones (U) [Mass/Vol] Negative Normal NEGATIVE [facility] Comment on above: Performed By: #### 5 8077-9 #### CURTIS SCHREIBER ([id number]) [facility] ([facility]) [address] [place] [address] 61130 Leukocyte esterase Auto test strip Ql (U) 500 Bryan/uL Abnormal NEGATIVE [facility] Comment on above: Performed By: #### 5 8077-9 #### CURTIS SCHREIBER ([id number]) [facility] ([facility]) [address] [place] [address] Nitrite Auto test strip Ql (U) Negative Normal NEGATIVE [facility] Comment on above: Performed By: #### 5 8077-9 #### CURTIS SCHREIBER ([id number]) [facility] ([facility]) [address] [place] [address] pH (U) 5.5 [pH] Normal 5.0, 5.5, 6.0, 6.5, 7.0, 7.5, 8.0 [facility] Comment on above: Performed By: #### 5 8077-9 #### CURTIS SCHREIBER ([id number]) [facility] ([facility]) [address] [place] [address] 95087 Protein (U) [Mass/Vol] 30 (1+) Abnormal NEGAT HEMANT, 10 (TRACE), 20 (TRACE) [facility] Comment on above: Performed By: #### 5 8077-9 #### CURTIS SCHREIBER ([id number]) [facility] ([facility]) [address] [place] [address] 02667 RBC (U) [#/Vol] Negative Normal NEGATIVE [facility] Comment on above: Performed By: #### 5 8077-9 #### CURTIS SCHREIBER ([id number]) [facility] ([facility]) [address] [place] [address] 30982 Specific gravity (U) [Rel density] 1.019 Normal 1.005-1.035 [facility] Comment on above: Performed By: #### 5 8077-9 #### CURTIS SCHREIBER ([id number]) [facility] ([facility]) [address] [place] [address] Urobilinogen (U) [Mass/Vol] Normal Normal Normal [facility] Comment on above: Performed By: #### 5 8077-9 #### CURTIS SCHREIBER ([id number]) [facility] ([facility]) [address] [place] [address] Urinalysis microscopic panel Auto Ql (U)on 10-12-2024 Epithelial cells.squamous Auto (Urine sed) [#/Area] 10-25 (FEW) Reference range not established. /HPF [facility] Hyaline casts Auto (Urine sed) [#/Area] 1+ Abnormal NONE /LPF [facility] Mucus Auto (Urine sed) [#/Area] FEW Reference range not established. /LPF [facility] RBC Auto (Urine sed) [#/Area] 3-5 NONE, 1-2, 3-5 /HPF [facility] Transitional cells Computer assisted (U) [#/Area] 1-2 (FEW) Reference range not established. /HPF [facility] WBC Auto (Urine sed) [#/Area] 21-50 Abnormal 1-5, NONE /HPF [facility] Yeast.budding Computer assisted (U) [#/Area] PRESENT Abnormal NONE /HPF [facility] Epithelial cells.squamous Auto (Urine sed) [#/Area] 10-25 (FEW) Normal Reference range not established. [facility] Comment on above: Performed By: #### 5 3315-8 #### CURTIS SCHREIBER ([id number]) [facility] ([facility]) [address] [place] [address] Hyaline casts Auto (Urine sed) [#/Area] 1+ /LPF Abnormal NONE [facility] Comment on above: Performed By: #### 5 3315-8 #### CURTIS SCHREIBER (75597) [facility] ([facility]) [facility] [place] [address] Mucus Auto (Urine sed) [#/Area] FEW Normal Reference range not established. [facility] Comment on above: Performed By: #### 5 3315-8 #### CURTIS SCHREIBER ([id number]) [facility] ([facility]) [facility] [place] [address] RBC Auto (Urine sed) [#/Area] 3-5 Normal NONE, 1-2, 3-5 [facility] Comment on above: Performed By: #### 5 3315-8 #### CURTIS SCHREIBER ([id number]) [facility] ([facility]) [address] [place] [address] Transitional cells Computer assisted (U) [#/Area] 1-2 (FEW) Normal Reference range not established. [facility] Comment on above: Performed By: #### 5 3315-8 #### CURTIS SCHREIBER ([id number]) [facility] ([facility]) [address] [place] [address] WBC Auto (Urine sed) [#/Area] 21-50 Abnormal 1-5, NONE [facility] Comment on above: Performed By: #### 5 3315-8 #### CURTIS SCHREIBER ([id number]) [facility] ([facility]) [address] [place] [address] Yeast.budding Computer assisted (U) [#/Area] PRESENT Abnormal NONE [facility] Comment on above: Performed By: #### 5 3315-8 #### CURTIS SCHREIBER ([id number]) [facility] ([facility]) [address] [place] [address] XR CHEST 1 VIEWon 10-12-2024 XR CHEST 1 VIEW Interpreted By: Erin Garrett, STUDY: XR CHEST 1 VIEW; 10/12/2024 11:40 pm INDICATION: Signs/Symptoms:dyspn ea. COMPARISON: None. ACCESSION NUMBER(S): [id number] ORDERING CLINICIAN: NICHOLE GUERRA FINDINGS: CARDIOMEDIASTINAL SILHOUETTE: Cardiac silhouette is enlarged. Atherosclerotic calcification of the aorta. Mild interstitial prominence. LUNGS: No consolidation, pleural effusion or pneumothorax. ABDOMEN: No remarkable upper abdominal findings. BONES: There is age indeterminate fracture deformity of the left humeral neck. Chronic fracture deformity of the left mid clavicle suspected. IMPRESSION: Cardiomegaly with mild interstitial prominence which could be chronic or relate to component developing interstitial edema/CHF. Correlate clinically. Deformity of the left humeral neck suspicious for age indeterminate fracture. Correlate with history and symptomatology for the need for further evaluation with dedicated shoulder/humeral x-rays. MACRO: None Signed by: Erin Garrett 10/13/2024 12:00 AM Dictation workstation: [id number] Normal [facility] XR Chest Single viewon 10-12 Radiology Study observation (narrative) [facility] Work Phone: Basic Metabolic Profile (BMP )on 10-10-2024 BUN Normal 4-19 [facility] Comment on above: Result Comment: Canc elled via OM: Order cancelled - Patient discharged Performed By: #### L 500.2500 ####[facility] [address] [place], [address] BUN/CRE Normal 10-20 [facility] Comment on above: Result Comment: Canc elled via OM: Order cancelled - Patient discharged Performed By: #### L 500.2500 ####[facility] [address] [place], [address] Calcium Normal 7.6-11.0 [facility] Comment on above: Result Comment: Canc elled via OM: Order cancelled - Patient discharged Performed By: #### L 500.2500 ####[facility] [address] [place], [address] CL Normal 98-108 [facility] Comment on above: Result Comment: Canc elled via OM: Order cancelled - Patient discharged Performed By: #### L 500.2500 ####[facility] [address] [place], [address] CO2 Normal 21.0-32.0 [facility] Comment on above: Result Comment: Canc elled via OM: Order cancelled - Patient discharged Performed By: #### L 500.2500 ####[facility] [address] [place], [address] CREAT,SERUM Normal 0.70-1.20 [facility] Comment on above: Result Comment: Canc elled via OM: Order cancelled - Patient discharged Performed By: #### L 500.2500 ####[facility] [address] [place], [address] eGFR Normal >60 [facility] Comment on above: Result Comment: Canc elled via OM: Order cancelled - Patient discharged Performed By: #### L 500.2500 ####[facility] [address] [place], [address] GAP Normal 5-15 [facility] Comment on above: Result Comment: Canc elled via OM: Order cancelled - Patient discharged Performed By: #### L 500.2500 ####[facility] [address] [place], [address] GLU Normal 70-99 [facility] Comment on above: Result Comment: Canc elled via OM: Order cancelled - Patient discharged Performed By: #### L 500.2500 ####[facility] [address] [place], [address] Potassium Normal 3.3-5.1 [facility] Comment on above: Result Comment: Canc elled via OM: Order cancelled - Patient discharged Performed By: #### L 500.2500 ####[facility] [address] [place], [address] Basic Metabolic Profile (BMP) Normal 133-145 [facility] Comment on above: Result Comment: Canc elled via OM: Order cancelled - Patient discharged Performed By: #### L 500.2500 ####[facility] [address] [place], [address] CBC-Complete Blood Cnt No Di ffon 10-10-2024 HCT Normal 37-47 [facility] Comment on above: Result Comment: Canc elled via OM: Order cancelled - Patient discharged Performed By: #### L 100.0500 ####[facility] [address] [place], [address] HGB Normal 12.0-15.0 [facility] Comment on above: Result Comment: Canc elled via OM: Order cancelled - Patient discharged Performed By: #### L 100.0500 ####[facility] [address] [place], [address] MCH Normal 27.0-32.0 [facility] Comment on above: Result Comment: Canc elled via OM: Order cancelled - Patient discharged Performed By: #### L 100.0500 ####[facility] [address] [place], [address] MCHC Normal 32-36 [facility] Comment on above: Result Comment: Canc elled via OM: Order cancelled - Patient discharged Performed By: #### L 100.0500 ####[facility] [address] [place], [address] MCV Normal 81-99 [facility] Comment on above: Result Comment: Canc elled via OM: Order cancelled - Patient discharged Performed By: #### L 100.0500 ####[facility] [address] [place], [address] PLT Normal 150-450 [facility] Comment on above: Result Comment: Canc elled via OM: Order cancelled - Patient discharged Performed By: #### L 100.0500 ####[facility] [address] [place], [address] RBC Normal 4.2-5.4 [facility] Comment on above: Result Comment: Canc elled via OM: Order cancelled - Patient discharged Performed By: #### L 100.0500 ####[facility] [address] [place], [address] RDW CV Normal 11.6-14.6 [facility] Comment on above: Result Comment: Canc elled via OM: Order cancelled - Patient discharged Performed By: #### L 100.0500 ####[facility] [address] [place], [address] RDW SD Normal 35.1-43.9 [facility] Comment on above: Result Comment: Canc elled via OM: Order cancelled - Patient discharged Performed By: #### L 100.0500 ####[facility] [address] [place], [address] WBC Normal 4.4-11.0 [facility] Comment on above: Result Comment: Canc elled via OM: Order cancelled - Patient discharged Performed By: #### L 100.0500 ####[facility] [address] [place], [address] COVID 19 AG RAPID (ALBERT Kwan)on 10-09-2024 SARS-CoV-2 (COVID-19) RNA RHYS+probe Ql (Unsp spec) Normal [facility] Comment on above: Performed By: #### M 100.505 ####[facility] [address] [place], [address] COVID-19 virus antigen assay Ordered By: Santino Haas on 10-09-2024 SARS-CoV-2 (COVID-19) Ag IA.rapid Ql (Resp) [facility] Anion gap in Serum or Plasma Ordered By: Santino Haas on 10-08-2024 Anion gap [Moles/Vol] 13 mmol/L 5-15 [facility] BUN/creatinine ratioOrdered By: Santino Haas on 10-08-2024 Urea nitrogen/Creatinine [Mass ratio] 23.6 mg/mg High - [facility] Basic Metabolic Profile (BMP )on 10-08-2024 BUN/CRE 23.6 RATIO High 02-28 [facility] Comment on above: Performed By: #### L 500.2500 ####[facility] [address] [place], [address] Calcium [Mass/Vol] 8.3 mg/dL Normal 7.6-11.[address] [facility] Comment on above: Performed By: #### L 500.2500 ####[facility] [address] [place], [address] Chloride [Moles/Vol] 99 mmol/L Normal 98-108 [facility] Comment on above: Performed By: #### L 500.2500 ####[facility] [address] [place], [address] CO2 [Moles/Vol] 21.3 mmol/L Normal 21.0-32.0 [facility] Comment on above: Performed By: #### L 500.2500 ####[facility] [address] [place], [address] Creatinine [Mass/Vol] 0.86 mg/dL Normal 0.70-1.20 [facility] Comment on above: Performed By: #### L 500.2500 ####[facility] [address] [place], [address] ECRCL 39.07 ml/min Low 50-250 [facility] Comment on above: Performed By: #### L 500.2500 ####[facility] [address] [place], [address] GAP 13 Normal 5-15 [facility] Comment on above: Performed By: #### L 500.2500 ####[facility] [address] [place], [address] GFR/1.73 sq M.predicted among non-blacks MDRD (S/P/Bld) [Vol rate/Area] 65 mL/min/{1.73_m2} Normal >60 [facility] Comment on above: Result Comment: mL/m in/1.73m2 CKD-EPI Creatinine Equation (2020) Performed By: #### L 500.2500 ####[facility] [address] [place], [address] Glucose [Mass/Vol] 120 mg/dL High 70-[address] [facility] Comment on above: Performed By: #### L 500.2500 ####[facility] [address] [place], [address] Potassium [Moles/Vol] 4.7 mmol/L Normal 3.3-5.1 [facility] Comment on above: Performed By: #### L 500.2500 ####[facility] [address] [place], [address] Sodium [Moles/Vol] 132 mmol/L Low 133-[address] [facility] Comment on above: Performed By: #### L 500.2500 ####[facility] [address] [place], [address] Urea nitrogen [Mass/Vol] 20 mg/dL High 4-19 [facility] Comment on above: Performed By: #### L 500.2500 ####[facility] [address] [place], [address] CBC-Complete Blood Cnt No Di ffon 10-08-2024 Erythrocyte distribution width (RBC) [Ratio] 13.4 % Normal 11.6-14.6 [facility] Comment on above: Performed By: #### L 100.0500 ####[facility] [address] [place], [address] Hematocrit (Bld) [Volume fraction] 35.4 % Low 37-47 [facility] Comment on above: Performed By: #### L 100.0500 ####[facility] [address] [place], [address] Hemoglobin (Bld) [Mass/Vol] 11.3 g/dL Low 12.0-15.0 [facility] Comment on above: Performed By: #### L 100.0500 ####[facility] [address] [place], [address] MCH (RBC) [Entitic mass] 28.8 pg Normal 27.0-32.0 [facility] Comment on above: Performed By: #### L 100.0500 ####[facility] [address] [place], [address] MCHC (RBC) [Mass/Vol] 31.9 g/dL Low 32-36 [facility] Comment on above: Performed By: #### L 100.0500 ####[facility] [address] [place], [address] MCV (RBC) [Entitic vol] 90.1 fL Normal 81-99 [facility] Comment on above: Performed By: #### L 100.0500 ####[facility] [address] [place], [address] Platelet mean volume (Bld) [Entitic vol] 9.5 fL Normal 6.2-12.0 [facility] Comment on above: Performed By: #### L 100.0500 ####[facility] [address] [place], [address] Platelets (Bld) [#/Vol] 377 10*3/uL Normal 150-450 [facility] Comment on above: Performed By: #### L 100.0500 ####[facility] [address] [place], [address] RBC (Bld) [#/Vol] 3.93 10*6/uL Low 4.2-5.4 [facility] Comment on above: Performed By: #### L 100.0500 ####[facility] [address] [place], [address] RDW SD 44.8 fl High 35.1-43.9 [facility] Comment on above: Performed By: #### L 100.0500 ####[facility] [address] [place], [address] WBC (Bld) [#/Vol] 8.0 10*3/uL Normal 4.4-11.[address] [facility] Comment on above: Performed By: #### L 100.5868 ####[facility] [address] [place], [place], [id number] Carbon dioxide, total [Moles /volume] in Central venous bloodOrdered By: Santino Haas on 10-08-2024 CO2 [Moles/Vol] 21.3 mmol/L 21.0-32.0 [facility] Chloride assayOrdered By: Charly Haas on 10-08-2024 Chloride [Moles/Vol] 99 mmol/L 98-108 [facility] Erythrocyte distribution wid th ratioOrdered By: Santino Haas on 10-08-2024 Erythrocyte distribution width (RBC) [Ratio] 13.4 % 11.6-14.6 [facility] Erythrocyte distribution wid th standard deviationOrdered By: Santino Haas on 10-08-2024 Erythrocyte distribution width (RBC) [Ratio] 44.8 fl High 35.1-43.9 [facility] Glomerular filtration rate ( GFR) estimation/1.73 sq m using serum, plasma, or whole bOrdered By: Santino Haas on 10-08-2024 GFR/1.73 sq M.predicted among non-blacks MDRD (S/P/Bld) [Vol rate/Area] 65 mL/min/{1.73_m2} >60 [facility] Hematocrit Auto (Bld) [Volum e fraction]Ordered By: Santino Haas on 10-08-2024 Hematocrit (Bld) [Volume fraction] 35.4 % Low 37-47 [facility] Hemoglobin measurementOrdere d By: Santino Haas on 10-08-2024 Hemoglobin (Bld) [Mass/Vol] 11.3 g/dL Low 12.0-15.0 [facility] MCV (mean corpuscular volume ) determinationOrdered By: Santino Haas on 10-08-2024 MCV (RBC) [Entitic vol] 90.1 fL 81-99 [facility] Mean corpuscular hemoglobin (MCH) determinationOrdered By: Santino Haas on 10-08-2024 MCH (RBC) [Entitic mass] 28.8 pg 27.0-32.0 [facility] Platelet countOrdered By: Charly laly Waldo on 10-08-2024 Platelets (Bld) [#/Vol] 377 10*3/uL 150-450 [facility] Potassium measurement (mass/ volume)Ordered By: Santino Haas on 10-08-2024 Potassium (Unsp spec) [Mass/Vol] 4.7 mmol/L 3.3-5.1 [facility] RBC Auto (Bld) [#/Vol]Ordere d By: Santino Haas on 10-08-2024 RBC (Bld) [#/Vol] 3.93 10*6/uL Low 4.2-5.4 [facility] Serum creatinine measurement (mass/volume)Ordered By: Santino Haas on 10-08-2024 Creatinine [Mass/Vol] 0.86 mg/dL 0.70-1.20 [facility] Serum glucose measurement (m ass/volume)Ordered By: Santino Haas on 10-08-2024 Glucose [Mass/Vol] 120 mg/dL High 70-[address] [facility] Serum or plasma calcium manuel urement (mass/volume)Ordered By: Santino Haas on 10-08-2024 Calcium [Mass/Vol] 8.3 mg/dL 7.6-11.[address] [facility] Serum or plasma urea nitroge n measurement (mass/volume)Ordered By: Santino Haas on 10-08-2024 Urea nitrogen [Mass/Vol] 20 mg/dL High 4-19 [facility] Sodium levelOrdered By: Ken Haas on 10-08-2024 Sodium [Moles/Vol] 132 mmol/L Low 133-[address] [facility] White blood cell (WBC) count Ordered By: Santino Haas on 10-08-2024 WBC (Bld) [#/Vol] 8.0 10*3/uL 4.4-11.[address] [facility] Basic Metabolic Profile (BMP )on 10-06-2024 BUN/CRE 24.0 RATIO High 10-20 [facility] Comment on above: Performed By: #### L 500.2500 ####[facility] [address] [place], [address] Calcium [Mass/Vol] 7.9 mg/dL Normal 7.6-11.[address] [facility] Comment on above: Performed By: #### L 500.2500 ####[facility] [address] [place], [address] Chloride [Moles/Vol] 98 mmol/L Normal 98-108 [facility] Comment on above: Performed By: #### L 500.2500 ####[facility] [address] [place], [address] CO2 [Moles/Vol] 24.8 mmol/L Normal 21.0-32.0 [facility] Comment on above: Performed By: #### L 500.2500 ####[facility] [address] [place], [address] Creatinine [Mass/Vol] 0.77 mg/dL Normal 0.70-1.20 [facility] Comment on above: Performed By: #### L 500.2500 ####[facility] [address] [place], [address] ECRCL 43.29 ml/min Low 50-250 [facility] Comment on above: Performed By: #### L 500.2500 ####[facility] [address] [place], [address] GAP 11 Normal 5-15 [facility] Comment on above: Performed By: #### L 500.2500 ####[facility] [address] [place], [address] GFR/1.73 sq M.predicted among non-blacks MDRD (S/P/Bld) [Vol rate/Area] 74 mL/min/{1.73_m2} Normal >60 [facility] Comment on above: Result Comment: mL/m in/1.73m2 CKD-EPI Creatinine Equation (2020) Performed By: #### L 500.2500 ####[facility] [address] [place], [address] Glucose [Mass/Vol] 98 mg/dL Normal 70-[address] [facility] Comment on above: Performed By: #### L 500.2500 ####[facility] [address] [place], [address] Potassium [Moles/Vol] 3.9 mmol/L Normal 3.3-5.1 [facility] Comment on above: Performed By: #### L 500.2500 ####[facility] [address] [place], [address] Sodium [Moles/Vol] 134 mmol/L Normal 133-[address] [facility] Comment on above: Performed By: #### L 500.2500 ####[facility] [address] [place], [address] Urea nitrogen [Mass/Vol] 18 mg/dL Normal 4-19 [facility] Comment on above: Performed By: #### L 500.2500 ####[facility] [address] [place], [address] CBC-[facility] Erythrocyte distribution width (RBC) [Ratio] 13.3 % Normal 11.6-14.6 [facility] Comment on above: Performed By: #### L 100.0500 ####[facility] [address] [place], [address] Hematocrit (Bld) [Volume fraction] 32.2 % Low 37-47 [facility] Comment on above: Performed By: #### L 100.0500 ####[facility] [address] [place], [address] Hemoglobin (Bld) [Mass/Vol] 10.2 g/dL Low 12.0-15.0 [facility] Comment on above: Performed By: #### L 100.0500 ####[facility] [address] [place], [address] MCH (RBC) [Entitic mass] 29.2 pg Normal 27.0-32.0 [facility] Comment on above: Performed By: #### L 100.0500 ####[facility] [address] [place], [address] MCHC (RBC) [Mass/Vol] 31.7 g/dL Low 32-36 [facility] Comment on above: Performed By: #### L 100.0500 ####[facility] [address] [place], [address] MCV (RBC) [Entitic vol] 92.3 fL Normal 81-99 [facility] Comment on above: Performed By: #### L 100.0500 ####[facility] [address] [place], [address] Platelet mean volume (Bld) [Entitic vol] 9.5 fL Normal 6.2-12.0 [facility] Comment on above: Performed By: #### L 100.0500 ####[facility] [address] [place], [address] Platelets (Bld) [#/Vol] 329 10*3/uL Normal 150-450 [facility] Comment on above: Performed By: #### L 100.0500 ####[facility] [address] [place], [address] RBC (Bld) [#/Vol] 3.49 10*6/uL Low 4.2-5.4 [facility] Comment on above: Performed By: #### L 100.0500 ####[facility] [address] [place], [address] RDW SD 45.1 fl High 35.1-43.9 [facility] Comment on above: Performed By: #### L 100.0500 ####[facility] [address] [place], [place], [address] WBC (Bld) [#/Vol] 7.6 10*3/uL Normal 4.4-11.[address] [facility] Comment on above: Performed By: #### L 100.0500 ####[facility] [address] [place], [place], [phone] Calculated very low density lipoprotein (VLDL) cholesterol measurementOrdered By: Jaiden Worthington on 10-05-2024 Calculated very low density lipoprotein (VLDL) cholesterol measurement 16 mg/dL 5-40 [facility] LDL calc ser/plasOrdered By: Jaiden Worthington on 10-05-2024 Cholesterol in LDL [Mass/Vol] 49 mg/dL [facility] Lipid Profileon 10-05-2024 CHOL:HDL 1.60 Normal [facility] Comment on above: Performed By: #### L 500.4100 ####[facility] [address] [place], [place], [address] Cholesterol [Mass/Vol] 173 mg/dL Normal <=200 [facility] Comment on above: Result Comment: Chol esterol level, Desirable <200 mg/dLBorderline high cholesterol 200-239 mg/dLHigh cholesterol >=240 mg/dLRecommendations of the NCEP Adult Treatment Panel for thefollowing risk-cutoff thresholds for the [place] Americanpulation. Performed By: #### L 500.4100 ####[facility] [address] [place], [place], [address] Cholesterol in HDL [Mass/Vol] 108 mg/dL Normal [facility] Comment on above: Result Comment: Arely onal Cholesterol Education Program (NCEP) guidelines:<40 mg/dL: Low HDL-cholesterol (major risk factor for CHD)>= 60 mg/dL: High HDL-cholesterol (negative risk factor forCHD)HDL-cholesterol is affected by a number of factors, e.g.smoking, exercise, hormones, sex and age. Performed By: #### L 500.4100 ####[facility] [address] [place], [place], [address] Cholesterol in LDL [Mass/Vol] 49 mg/dL Normal [facility] Comment on above: Result Comment: Bord karclk=927-268 mg/dL Higher Vkoo=707 mg/dL or greater Performed By: #### L 500.4100 ####[facility] [address] [place], [place], [address] Cholesterol in VLDL [Mass/Vol] 16 mg/dL Normal 5-40 [facility] Comment on above: Performed By: #### L 500.4100 ####[facility] [address] [place], [place], [phone]) Triglyceride [Mass/Vol] 78 mg/dL Normal [facility] Comment on above: Result Comment: The drugs N-Acetylcysteine and Metamizole may falselydepress this assay.Normal range: <150 mg/dLBorderline High: 150-199 mg/dLHigh: 200-499 mg/dLVery High: >500 mg/dL Performed By: #### L 500.4100 ####[facility] [address] [place], [place], [id number] MR/CON.PCM.NEon 10-05-2024 MR/CON.PCM.NE Normal [facility] Serum or plasma cholesterol in HDL measurement (mass/volume)Ordered By: Jaiden Worthington on 10-05-2024 Cholesterol in HDL [Mass/Vol] 108 mg/dL >40 [facility] Serum or plasma cholesterol measurement (mass/volume)Ordered By: Jaiden Worthington on 10-05-2024 Cholesterol [Mass/Vol] 173 mg/dL <201 [facility] Urine Cultureon 10-05-2024 URC Organism is too fastidious for routine susceptibility studies. Urine Culture Urine Culture Aerococcus urinae Rainier Count 80,000-100,000 Normal [facility] Comment on above: Performed By: #### M 100.2200 ####[facility] [address] [place], [place], [address] Absolute lymphocyte countOrd ered By: Juan José Thorpe on 10-04-2024 Lymphocytes Auto (Unsp spec) [#/Vol] 1.42 10*3/uL 0.83-4.51 [facility] Alcohol, Blood (Medical)-Ser umon 10-04-2024 SERUM ETOH < 10.1 Normal <=10.0 [facility] Comment on above: Result Comment: This test is for medical purposes only. The legaldefinition of intoxication varies according to local law. Performed By: #### L 501.9100, L501.5200 ####[facility] [address] [place], [address] Automated lymphocyte count a s percentage of total leukocytesOrdered By: Juan José Thorpe on 10-04-2024 Lymphocytes/100 WBC Auto (Unsp spec) 14.8 % Low 19-41 [facility] Basophil percentageOrdered B y: Juan José Thorpe on 10-04-2024 Basophils/100 WBC (Bld) 0.6 % Normal 0-1 [facility] Comment on above: Performed By: #### L 100.0100, L500.4050, L501.2300, L501.9520 ####[facility] [address] [place], [place], [phone] Bilirubin, totalOrdered By: Juan José Thorpe on 10-04-2024 Bilirubin [Mass/Vol] 0.41 mg/dL 0.00-1.30 [facility] Brain without Contraston Brain without Contrast Normal [facility] CBC W/Diff, Automatedon 09-10 Absolute Lymph 1.42 X10 3/uL Normal 0.83-4.51 [facility] Comment on above: Performed By: #### L 100.0100, L500.4050, L501.2300, L501.9520 ####[facility] [address] [place], [address] Absolute Neut 6.8 X10 3/uL Normal 2.0-7.7 [facility] Comment on above: Performed By: #### L 100.0100, L500.4050, L501.2300, L501.9520 ####[facility] [address] [place], [address] Erythrocyte distribution width (RBC) [Ratio] 13.3 % Normal 11.6-14.6 [facility] Comment on above: Performed By: #### L 100.0100, L500.4050, L501.2300, L501.9520 ####[facility] [address] [place], [address] Hematocrit (Bld) [Volume fraction] 34.0 % Low 37-47 [facility] Comment on above: Performed By: #### L 100.0100, L500.4050, L501.2300, L501.9520 ####[facility] [address] [place], [address] Hemoglobin (Bld) [Mass/Vol] 10.8 g/dL Low 12.0-15.0 [facility] Comment on above: Performed By: #### L 100.0100, L500.4050, L501.2300, L501.9520 ####[facility] [address] [place], [address] IG% 0.600 Normal 0.0-0.9 [facility] Comment on above: Result Comment: IG% - Immature Granulocytes (promyelocytes, myelocytes andmetamyelocytes) > 1% indicates that a LEFT SHIFT is Present. Performed By: #### L 100.0100, L500.4050, L501.2300, L501.9520 ####[facility] [address] [place], [address] Lymphocytes/100 WBC (Bld) 14.8 % Low 19-41 [facility] Comment on above: Performed By: #### L 100.0100, L500.4050, L501.2300, L501.9520 ####[facility] [address] [place], [address] MCH (RBC) [Entitic mass] 29.0 pg Normal 27.0-32.0 [facility] Comment on above: Performed By: #### L 100.0100, L500.4050, L501.2300, L501.9520 ####[facility] [address] [place], [address] MCHC (RBC) [Mass/Vol] 31.8 g/dL Low 32-36 [facility] Comment on above: Performed By: #### L 100.0100, L500.4050, L501.2300, L501.9520 ####[facility] [address] [place], [address] MCV (RBC) [Entitic vol] 91.2 fL Normal 81-99 [facility] Comment on above: Performed By: #### L 100.0100, L500.4050, L501.2300, L501.9520 ####[facility] [address] [place], [address] Nucleated RBC (Bld) [#/Vol] 0 10*3/uL Normal 0-5 [facility] Comment on above: Performed By: #### L 100.0100, L500.4050, L501.2300, L501.9520 ####[facility] [address] [place], [address] Platelet mean volume (Bld) [Entitic vol] 9.3 fL Normal 6.2-12.0 [facility] Comment on above: Performed By: #### L 100.0100, L500.4050, L501.2300, L501.9520 ####[facility] [address] [place], [address] Platelets (Bld) [#/Vol] 379 10*3/uL Normal 150-450 [facility] [facility] Comment on above: Performed By: #### L 100.0100, L500.4050, L501.2300, L501.9520 ####[facility] [address] [place], [address] RBC (Bld) [#/Vol] 3.73 10*6/uL Low 4.2-5.4 [facility] Comment on above: Performed By: #### L 100.0100, L500.4050, L501.2300, L501.9520 ####[facility] [address] [place], [address] RDW SD 44.9 fl High 35.1-43.9 [facility] Comment on above: Performed By: #### L 100.0100, L500.4050, L501.2300, L501.9520 ####[facility] [address] [place], [address] WBC (Bld) [#/Vol] 9.6 10*3/uL Normal 4.4-11.[address] [facility] Comment on above: Performed By: #### L 100.0100, L500.4050, L501.2300, L501.9520 ####[facility] [address] [place], [address] Comprehensive Metabolic [facility] 10-04-2024 Albumin [Mass/Vol] 3.8 g/dL Normal 3.4-4.[address] [facility] Comment on above: Performed By: #### L 100.0100, L500.4050, L501.2300, L501.9520 ####[facility] [address] [place], [address] Albumin/Globulin [Mass ratio] 1.4 {ratio} Normal 0.9-2.4 [facility] Comment on above: Performed By: #### L 100.0100, L500.4050, L501.2300, L501.9520 ####[facility] [address] [place], [address] ALK PHOS 88 U/L Normal 35-104 [facility] Comment on above: Performed By: #### L 100.0100, L500.4050, L501.2300, L501.9520 ####[facility] [address], [address] ALT [Catalytic activity/Vol] 12 U/L Normal <=34 [facility] Comment on above: Performed By: #### L 100.0100, L500.4050, L501.2300, L501.9520 ####[facility] [address] [place], [address] AST [Catalytic activity/Vol] 28 U/L Normal <=31 [facility] Comment on above: Performed By: #### L 100.0100, L500.4050, L501.2300, L501.9520 ####[facility] [address] [place], [address] Bilirubin [Mass/Vol] 0.41 mg/dL Normal 0.00-1.30 [facility] Comment on above: Performed By: #### L 100.0100, L500.4050, L501.2300, L501.9520 ####[facility] [address], [address] BUN/CRE 31.8 RATIO High 10-20 [facility] Comment on above: Performed By: #### L 100.0100, L500.4050, L501.2300, L501.9520 ####[facility] [address] [place], [address] Calcium [Mass/Vol] 8.3 mg/dL Normal 7.6-11.[address] [facility] Comment on above: Performed By: #### L 100.0100, L500.4050, L501.2300, L501.9520 ####[facility] [address] [place], [address] Chloride [Moles/Vol] 97 mmol/L Low 98-108 [facility] Comment on above: Performed By: #### L 100.0100, L500.4050, L501.2300, L501.9520 ####[facility] [address] [place], [address] CO2 [Moles/Vol] 26.0 mmol/L Normal 21.0-32.0 [facility] Comment on above: Performed By: #### L 100.0100, L500.4050, L501.2300, L501.9520 ####[facility] [address] [place], [address] Creatinine [Mass/Vol] 0.93 mg/dL Normal 0.70-1.20 [facility] Comment on above: Performed By: #### L 100.0100, L500.4050, L501.2300, L501.9520 ####[facility] [address] [place], [address] ECRCL 36.11 ml/min Low 50-250 [facility] Comment on above: Performed By: #### L 100.0100, L500.4050, L501.2300, L501.9520 ####[facility] [address] [place], [address] GAP 13 Normal 5-15 [facility] Comment on above: Performed By: #### L 100.0100, L500.4050, L501.2300, L501.9520 ####[facility] [address] [place], [address] GFR/1.73 sq M.predicted among non-blacks MDRD (S/P/Bld) [Vol rate/Area] 59 mL/min/{1.73_m2} Low >60 [facility] Comment on above: Result Comment: mL/m in/1.73m2 CKD-EPI Creatinine Equation (2020) Performed By: #### L 100.0100, L500.4050, L501.2300, L501.9520 ####[facility] [address] [place], [address] Globulin (S) [Mass/Vol] 2.7 g/dL Normal 2.2-4.2 [facility] Comment on above: Performed By: #### L 100.0100, L500.4050, L501.2300, L501.9520 ####[facility] [address] [place], [address] Glucose [Mass/Vol] 141 mg/dL High 70-[address] [facility] Comment on above: Performed By: #### L 100.0100, L500.4050, L501.2300, L501.9520 ####[facility] [address] [place], [address] Potassium [Moles/Vol] 3.6 mmol/L Normal 3.3-5.1 [facility] Comment on above: Performed By: #### L 100.0100, L500.4050, L501.2300, L501.9520 ####[facility] [address] [place], [address] Sodium [Moles/Vol] 136 mmol/L Normal 133-[address] [facility] Comment on above: Performed By: #### L 100.0100, L500.4050, L501.2300, L501.9520 ####[facility] [address] [place], [address] T PROT 6.4 g/dL Normal 5.9-8.4 [facility] Comment on above: Performed By: #### L 100.0100, L500.4050, L501.2300, L501.9520 ####[facility] [address] [place], [address] Urea nitrogen [Mass/Vol] 30 mg/dL High 4-19 [facility] Comment on above: Performed By: #### L 100.0100, L500.4050, L501.2300, L501.9520 ####[facility] [address] [place], [address] Eosinophil percentageOrdered By: Juan José Thorpe on 10-04-2024 Eosinophils/100 WBC (Bld) 1.1 % Normal 0-5 [facility] Comment on above: Performed By: #### L 100.0100, L500.4050, L501.2300, L501.9520 ####[facility] [address] [place], [address] Immature granulocytes/100 WB C Auto (Bld)Ordered By: Juan José Thorpe on 10-04-2024 Immature granulocytes/100 WBC (Bld) 0.600 % 0.0-0.9 [facility] Magnesiumon 10-04-2024 Magnesium [Mass/Vol] 3.4 mg/dL High 1.5-2.2 [facility] Comment on above: Performed By: #### L 501.9100, L501.5200 ####[facility] [address] [place], [address] Magnetic resonance imaging r eportOrdered By: Wilner Meredith on 10-04-2024 Study report [facility] Monocyte percentageOrdered B y: Juan José Thorpe on 10-04-2024 Monocytes/100 WBC (Bld) 11.6 % High 0-10 [facility] Comment on above: Performed By: #### L 100.0100, L500.4050, L501.2300, L501.9520 ####[facility] [address] [place], [address] Neutrophil percentageOrdered By: Juan José Thorpe on 10-04-2024 Neutrophils/100 WBC (Bld) 71.3 % High 47-70 [facility] Comment on above: Performed By: #### L 100.0100, L500.4050, L501.2300, L501.9520 ####[facility] [address] [place], [place], [address] No Panel InformationOrdered By: Juan José Thorpe on 10-04-2024 28 U/L <32 [facility] Phosphoruson 10-04-2024 Phosphate [Mass/Vol] 2.5 mg/dL Low 2.7-4.5 [facility] Comment on above: Performed By: #### L 100.0100, L500.4050, L501.2300, L501.9520 ####[facility] [address] [place], [place], [id number] Serum globulin measurementOr dered By: Juan José Thorpe on 10-04-2024 Globulin (S) [Mass/Vol] 2.7 g/dL 2.2-4.2 [facility] Serum or plasma alanine clifton otransferase (ALT) measurementOrdered By: Juan José Thorpe on 10-04-2024 ALT [Catalytic activity/Vol] 12 U/L <35 [facility] Serum or plasma albumin manuel urement (mass/volume)Ordered By: Juan José Thorpe on 10-04-2024 Albumin [Mass/Vol] 3.8 g/dL 3.4-4.[address] [facility] Serum or plasma albumin/glob ulin mass ratioOrdered By: Juan José Thorpe on 10-04-2024 Albumin/Globulin [Mass ratio] 1.4 {ratio} 0.9-2.4 [facility] Serum or plasma alkaline bibi sphatase measurementOrdered By: Juan José Thorpe on 10-04-2024 ALP [Catalytic activity/Vol] 88 U/L 35-104 [facility] TSH DL <= 0.005 mIU/L QnOrde red By: Juan José Thorpe on 10-04-2024 TSH Qn 0.373 uIU/mL 0.300-4.200 [facility] Thyroid Stim Hormone (TSH)on 10-04-2024 TSH 0.373 uIU/mL Normal 0.300-4.200 [facility] Comment on above: Performed By: #### L 100.0100, L500.4050, L501.2300, L501.9520 ####[facility] [address] [facility] [place], [address] Total proteinOrdered By: Obed Thorpe on 10-04-2024 Protein [Mass/Vol] 6.4 g/dL 5.9-8.[address] [facility] Urine Cultureon 10-04-2024 URC Organism is too fastidious for routine susceptibility studies. Aerococcus urinae Rainier Count 80,000-100,000 Normal [facility] Comment on above: Performed By: #### M 100.2200 ####[facility] [address] [facility] [address] [place], [place], [id number] 12 Lead EKGon 10-03-2024 12 Lead EKG Normal [facility] Absolute lymphocyte countOrd ered By: Diana Snow on 10-03-2024 Lymphocytes Auto (Unsp spec) [#/Vol] 0.99 10*3/uL 0.83-4.51 [facility] Amphetamine detection with 1 000 ng/mL as cutoffOrdered By: Diana Snow on 10-03-2024 Amphetamines Screen method >1000 ng/mL Ql (U) Negative < 200 ng/mL [facility] Anion gap in Serum or Plasma Ordered By: Diana Snow on 10-03-2024 Anion gap [Moles/Vol] 11 mmol/L 5-15 [facility] Automated lymphocyte count a s percentage of total leukocytesOrdered By: Diana Snow on 10-03-2024 Lymphocytes/100 WBC Auto (Unsp spec) 9.6 % Low 19-41 [facility] BUN/creatinine ratioOrdered By: Diana Snow on 10-03-2024 Urea nitrogen/Creatinine [Mass ratio] 33.3 mg/mg High - [facility] Basic Metabolic Profile (BMP )on 10-03-2024 BUN/CRE 33.3 RATIO High 02-28 [facility] Comment on above: Performed By: #### L 100.0100, L500.2500 ####[facility] [address] [place], [address] Calcium [Mass/Vol] 8.4 mg/dL Normal 7.6-11.[address] [facility] Comment on above: Performed By: #### L 100.0100, L500.2500 ####[facility] [address] [place], [address] Chloride [Moles/Vol] 96 mmol/L Low 98-108 [facility] Comment on above: Performed By: #### L 100.0100, L500.2500 ####[facility] [address] [place], [address] CO2 [Moles/Vol] 28.4 mmol/L Normal 21.0-32.0 [facility] Comment on above: Performed By: #### L 100.0100, L500.2500 ####[facility] [address] [place], [address] Creatinine [Mass/Vol] 1.04 mg/dL Normal 0.70-1.20 [facility] Comment on above: Performed By: #### L 100.0100, L500.2500 ####[facility] [address] [place], [address] ECRCL 35.97 ml/min Low 50-250 [facility] Comment on above: Performed By: #### L 100.0100, L500.2500 ####[facility] [address] [place], [address] GAP 11 Normal 5-15 [facility] Comment on above: Performed By: #### L 100.0100, L500.2500 ####[facility] [address] [place], [address] GFR/1.73 sq M.predicted among non-blacks MDRD (S/P/Bld) [Vol rate/Area] 52 mL/min/{1.73_m2} Low >60 [facility] Comment on above: Result Comment: mL/m in/1.73m2 CKD-EPI Creatinine Equation (2020) Performed By: #### L 100.0100, L500.2500 ####[facility] [address] [place], [address] Glucose [Mass/Vol] 121 mg/dL High 70-[address] [facility] Comment on above: Performed By: #### L 100.0100, L500.2500 ####[facility] [address] [place], [address] Potassium [Moles/Vol] 4.2 mmol/L Normal 3.3-5.1 [facility] Comment on above: Performed By: #### L 100.0100, L500.2500 ####[facility] [address] [place], [address] Sodium [Moles/Vol] 134 mmol/L Normal 133-[address] [facility] Comment on above: Performed By: #### L 100.0100, L500.2500 ####[facility] [address] [place], [address] Urea nitrogen [Mass/Vol] 35 mg/dL High 4-19 [facility] Comment on above: Performed By: #### L 100.0100, L500.2500 ####[facility] [address] [place], [address] Basophil percentageOrdered B y: Diana Snow on 10-03-2024 Basophils/100 WBC (Bld) 0.3 % 0-1 [facility] Bilirubin Test strip Ql (U)O rdered By: Diana Snow on 10-03-2024 Bilirubin Ql (U) Negative Negative [facility] Brain/Head without Contrasto n 10-03-2024 Brain/Head without Contrast Normal [facility] CBC W/Diff, Automatedon 09-10 Absolute Lymph 0.99 X10 3/uL Normal 0.83-4.51 [facility] Comment on above: Performed By: #### L 100.0100, L500.2500 ####[facility] [address] [place], [address] Absolute Neut 8.2 X10 3/uL High 2.0-7.7 [facility] Comment on above: Performed By: #### L 100.0100, L500.2500 ####[facility] [address] [place], [address] Basophils/100 WBC (Bld) 0.3 % Normal 0-1 [facility] Comment on above: Performed By: #### L 100.0100, L500.2500 ####[facility] [address] [place], [address] Eosinophils/100 WBC (Bld) 0.1 % Normal 0-5 [facility] Comment on above: Performed By: #### L 100.0100, L500.2500 ####[facility] [address] [place], [address] Erythrocyte distribution width (RBC) [Ratio] 13.3 % Normal 11.6-14.6 [facility] Comment on above: Performed By: #### L 100.0100, L500.2500 ####[facility] [address] [place], [address] Hematocrit (Bld) [Volume fraction] 32.2 % Low 37-47 [facility] Comment on above: Performed By: #### L 100.0100, L500.2500 ####[facility] [address] [place], [address] Hemoglobin (Bld) [Mass/Vol] 10.4 g/dL Low 12.0-15.0 [facility] Comment on above: Performed By: #### L 100.0100, L500.2500 ####[facility] [address] [place], [address] IG% 0.600 Normal 0.0-0.9 [facility] Comment on above: Result Comment: IG% - Immature Granulocytes (promyelocytes, myelocytes andmetamyelocytes) > 1% indicates that a LEFT SHIFT is Present. Performed By: #### L 100.0100, L500.2500 ####[facility] [address] [place], [address] Lymphocytes/100 WBC (Bld) 9.6 % Low 19-41 [facility] Comment on above: Performed By: #### L 100.0100, L500.2500 ####[facility] [address] [place], [address] MCH (RBC) [Entitic mass] 29.4 pg Normal 27.0-32.0 [facility] Comment on above: Performed By: #### L 100.0100, L500.2500 ####[facility] [address] [place], [address] MCHC (RBC) [Mass/Vol] 32.3 g/dL Normal 32-36 [facility] Comment on above: Performed By: #### L 100.0100, L500.2500 ####[facility] [address] [place], [address] MCV (RBC) [Entitic vol] 91.0 fL Normal 81-99 [facility] Comment on above: Performed By: #### L 100.0100, L500.2500 ####[facility] [address] [place], [address] Monocytes/100 WBC (Bld) 9.8 % Normal 0-10 [facility] Comment on above: Performed By: #### L 100.0100, L500.2500 ####[facility] [address] [place], [address] Neutrophils/100 WBC (Bld) 79.6 % High 47-70 [facility] Comment on above: Performed By: #### L 100.0100, L500.2500 ####[facility] [address] [place], [address] Nucleated RBC (Bld) [#/Vol] 0 10*3/uL Normal 0-5 [facility] Comment on above: Performed By: #### L 100.0100, L500.2500 ####[facility] [address] [place], [address] Platelet mean volume (Bld) [Entitic vol] 9.2 fL Normal 6.2-12.0 [facility] Comment on above: Performed By: #### L 100.0100, L500.2500 ####[facility] [address] [place], [address] Platelets (Bld) [#/Vol] 368 10*3/uL Normal 150-450 [facility] Comment on above: Performed By: #### L 100.0100, L500.2500 ####[facility] [address] [place], [address] RBC (Bld) [#/Vol] 3.54 10*6/uL Low 4.2-5.4 [facility] Comment on above: Performed By: #### L 100.0100, L500.2500 ####[facility] [address] [place], [address] RDW SD 44.4 fl High 35.1-43.9 [facility] Comment on above: Performed By: #### L 100.0100, L500.2500 ####[facility] [address] [place], [address] WBC (Bld) [#/Vol] 10.3 10*3/uL Normal 4.4-11.0 [facility] Comment on above: Performed By: #### L 100.0100, L500.2500 ####[facility] [address] [place], [address] Carbon dioxide, total [Moles /volume] in Central venous bloodOrdered By: Diana Snow on 10-03-2024 CO2 [Moles/Vol] 28.4 mmol/L 21.0-32.0 [facility] Chest without Contraston Chest without Contrast Normal [facility] Chloride assayOrdered By: Neto Snow on 10-03-2024 Chloride [Moles/Vol] 96 mmol/L Low 98-108 [facility] Emergency Department Summary on 10-03-2024 Emergency Department Summary Normal [facility] Eosinophil percentageOrdered By: Diana Snow on 10-03-2024 Eosinophils/100 WBC (Bld) 0.1 % 0-5 [facility] Erythrocyte distribution wid th ratioOrdered By: Diana Snow on 10-03-2024 Erythrocyte distribution width (RBC) [Ratio] 13.3 % 11.6-14.6 [facility] Erythrocyte distribution wid th standard deviationOrdered By: Diana Snow on 10-03-2024 Erythrocyte distribution width (RBC) [Ratio] 44.4 fl High 35.1-43.9 [facility] Glomerular filtration rate ( GFR) estimation/1.73 sq m using serum, plasma, or whole bOrdered By: Diana Snow on 10-03-2024 GFR/1.73 sq M.predicted among non-blacks MDRD (S/P/Bld) [Vol rate/Area] 52 mL/min/{1.73_m2} Low >60 [facility] H AND P Exam - Hospitaliston 10-03-2024 H&P Exam - Hospitalist Normal [facility] HIP, UNI W/ Pelvis 2-3 Views on 10-03-2024 HIP, UNI W/ Pelvis 2-3 Views Normal [facility] Hematocrit Auto (Bld) [Volum e fraction]Ordered By: Diana Snow on 10-03-2024 Hematocrit (Bld) [Volume fraction] 32.2 % Low 37-47 [facility] Hemoglobin measurementOrdere d By: Diana Snow on 10-03-2024 Hemoglobin (Bld) [Mass/Vol] 10.4 g/dL Low 12.0-15.0 [facility] Immature granulocytes/100 WB C Auto (Bld)Ordered By: Diana Snow on 10-03-2024 Immature granulocytes/100 WBC (Bld) 0.600 % 0.0-0.9 [facility] Ketones Test strip Ql (U)Ord ered By: Diana Snow on 10-03-2024 Ketones Ql (U) Negative Negative [facility] MCV (mean corpuscular volume ) determinationOrdered By: Diana Snow on 10-03-2024 MCV (RBC) [Entitic vol] 91.0 fL 81-99 [facility] Magnesium measurement (mass/ volume)Ordered By: Juan José Thorpe on 10-03-2024 Magnesium (Unsp spec) [Mass/Vol] 3.4 mg/dL High 1.5-2.2 [facility] Mean corpuscular hemoglobin (MCH) determinationOrdered By: Diana Snow on 10-03-2024 MCH (RBC) [Entitic mass] 29.4 pg 27.0-32.0 [facility] Monocyte percentageOrdered B y: Diana Snow on 10-03-2024 Monocytes/100 WBC (Bld) 9.8 % 0-10 [facility] Mucus LM Ql (Urine sed)Order ed By: Diana Snow on 10-03-2024 Mucus Ql (Urine sed) 0 SEEN /hpf [facility] Neutrophil percentageOrdered By: Diana Snow on 10-03-2024 Neutrophils/100 WBC (Bld) 79.6 % High 47-70 [facility] Nitrite Test strip Ql (U)Ord ered By: Diana Snow on 10-03-2024 Nitrite Ql (U) Negative Negative [facility] No Panel InformationOrdered By: Diana Snow on 10-03-2024 Negative < 200 ng/mL [facility] Platelet countOrdered By: Neto Snow on 10-03-2024 Platelets (Bld) [#/Vol] 368 10*3/uL 150-450 [facility] Potassium measurement (mass/ volume)Ordered By: Diana Snow on 05-25-2025 Potassium (Unsp spec) [Mass/Vol] 4.2 mmol/L 3.3-5.1 [facility] Protein Test strip Ql (U)Ord ered By: Diana Snow on 10-03-2024 Protein Ql (U) 30 mg/dl High Negative [facility] RBC Auto (Bld) [#/Vol]Ordere d By: Diana Snow on 10-03-2024 RBC (Bld) [#/Vol] 3.54 10*6/uL Low 4.2-5.4 [facility] Screening urine fentanyl fran surementOrdered By: Diana Snow on 10-03-2024 fentaNYL Screen Ql (U) Negative [facility] Serum creatinine measurement (mass/volume)Ordered By: Diana Snow on 10-03-2024 Creatinine [Mass/Vol] 1.04 mg/dL 0.70-1.20 [facility] Serum glucose measurement (m ass/volume)Ordered By: Diana Snow on 10-03-2024 Glucose [Mass/Vol] 121 mg/dL High 70-[address] [facility] Serum or plasma calcium manuel urement (mass/volume)Ordered By: Diana Snow on 10-03-2024 Calcium [Mass/Vol] 8.4 mg/dL 7.6-11.[address] [facility] Serum or plasma ethanol manuel urement (mass/volume)Ordered By: Juan José Thorpe on 10-03-2024 Ethanol [Mass/Vol] mg/dL <10.[address] [facility] Serum or plasma urea nitroge n measurement (mass/volume)Ordered By: Diana Snow on 10-03-2024 Urea nitrogen [Mass/Vol] 35 mg/dL High 4-19 [facility] Sodium levelOrdered By: Roly Snow on 10-03-2024 Sodium [Moles/Vol] 134 mmol/L 133-[address] [facility] Spine Cervical without Contr ason 10-03-2024 Spine Cervical without Contras Normal [facility] Squamous epithelial cells de tection in urine sediment by light microscopyOrdered By: Diana Snow on 10-03-2024 Epithelial cells.squamous LM Ql (Urine sed) 0 SEEN /hpf 5-10 [facility] Urinalysis, Completeon 10-03 BACTERIA 2+ /hpf Normal None Seen [facility] Comment on above: Order Comment: CLEAN CATCH Performed By: #### L 400.0001 ####[facility] [address] [place], [address] RBC 0-5 SEEN Normal 0-5 [facility] Comment on above: Order Comment: CLEAN CATCH Performed By: #### L 400.0001 ####[facility] [address] [place], [address] WBC 0-5 SEEN Normal 0-5 [facility] Comment on above: Order Comment: CLEAN CATCH Performed By: #### L 400.0001 ####[facility] [address] [place], [address] EPI,SQUAMOUS 0 SEEN Normal 5-10 [facility] Comment on above: Order Comment: CLEAN CATCH Performed By: #### L 400.0001 ####[facility] [address] [facility] [address] Mucus Ql (Urine sed) 0 SEEN Normal [facility] Comment on above: Order Comment: CLEAN CATCH Performed By: #### L 400.0001 ####[facility] [address] [place], [address] Urine Drug Screen (VISTA)on 10-03-2024 AMPHETAMINES Negative Normal <1000 ng/mL [facility] Comment on above: Performed By: #### L 505.5000 ####[facility] [address] [place], [address] BARBITIURATES Negative Normal < 200 ng/mL [facility] Comment on above: Performed By: #### L 505.5000 ####[facility] [address] [place], [address] BENZODIAZIPINE Negative Normal < 200 ng/mL [facility] Comment on above: Performed By: #### L 505.5000 ####[facility] [address] [facility] [address] BUP Ur Drug Scr Negative Normal < 200 ng/mL [facility] Comment on above: Performed By: #### L 505.5000 ####[facility] [address] [facility] [address] COCAINE Negative Normal < 300 ng/mL [facility] Comment on above: Performed By: #### L 505.5000 ####[facility] [address] [place] [address] Fentanyl Negative Normal [facility] Comment on above: Performed By: #### L 505.5000 ####[facility] [address] [place] [id number] METHADONE Negative Normal < 300 ng/mL [facility] Comment on above: Performed By: #### L 505.5000 ####[facility] [address] [place] [address] OPIATES Positive Normal < 300 ng/mL [facility] Comment on above: Result Comment: If c onfirmation testing is needed, a separate order will berequired to send out testing to the reference laboratory. Performed By: #### L 505.5000 ####[facility] [address] [place] [address] OXYCODONE Negative Normal < 100 ng/mL [facility] Comment on above: Performed By: #### L 505.5000 ####[facility] [address] [place] [address] PCP Negative Normal < 25 ng/mL [facility] Comment on above: Performed By: #### L 505.5000 ####[facility] [address] [place] [id number] THC Negative Normal < 50 ng/mL [facility] Comment on above: Performed By: #### L 505.5000 ####[facility] [address] [place], [address] Urine clarityOrdered By: Jocelynn Snow on 10-03-2024 Clarity (U) Clear Clear [facility] Urine color determinationOrd ered By: Diana Snow on 10-03-2024 Color (U) Straw Yellow [facility] Urine cultureOrdered By: Jocelynn Snow on 10-03-2024 Bacteria identified Cx Nom (U) Aerococcus urinae Abnormal [facility] Urine glucose detectionOrder ed By: Diana Snow on 10-03-2024 Glucose Ql (U) Normal mg/dl Normal [facility] Urine leukocyte esterase det ection by dipstickOrdered By: Diana Snow on 10-03-2024 Leukocyte esterase Test strip Ql (U) Negative Negative [facility] Urine pHOrdered By: Diana ann on 10-03-2024 pH (U) 6.5 [pH] 5.0 - 8.0 [facility] Urine phencyclidine (PCP) de tectionOrdered By: Diana Snow on 10-03-2024 Phencyclidine Ql (U) Negative < 25 ng/mL [facility] Urine sediment bacteria coun t by microscopy (number/high power field)Ordered By: Diana Snow on 10-03-2024 Bacteria LM.HPF (Urine sed) [#/Area] 2 /[HPF] None Seen [facility] Urine specific gravity measu rementOrdered By: Diana Snow on 10-03-2024 Specific gravity (U) [Rel density] 1.010 1.002-1.030 [facility] Urine urobilinogen measureme ntOrdered By: Diana Snow on 10-03-2024 Urobilinogen Ql (U) Normal mg/dl Normal [facility] White blood cell (WBC) count Ordered By: Diana Snow on 10-03-2024 WBC (Bld) [#/Vol] 10.3 10*3/uL 4.4-11.0 [facility] White blood cell countOrdere d By: Diana Snow on 10-03-2024 White blood cell count 0-5 SEEN /hpf 0-5 [facility] 12 Lead EKGon 10-01-2024 12 Lead EKG Normal [facility] Absolute lymphocyte countOrd ered By: Ayaz Hinton on 10-01-2024 Lymphocytes Auto (Unsp spec) [#/Vol] 1.04 10*3/uL 0.83-4.51 [facility] Amorphous sediment detection in urine sediment by light microscopyOrdered By: Ayaz Hinton on 10-01-2024 Amorphous sediment LM Ql (Urine sed) 2+ [facility] Anion gap in Serum or Plasma Ordered By: Ayaz Hinton on 10-01-2024 Anion gap [Moles/Vol] 12 mmol/L 5-15 [facility] Automated lymphocyte count a s percentage of total leukocytesOrdered By: Ayaz Hinton on 10-01-2024 Lymphocytes/100 WBC Auto (Unsp spec) 10.9 % Low 19-41 [facility] BUN/creatinine ratioOrdered By: Ayaz Hinton on 10-01-2024 Urea nitrogen/Creatinine [Mass ratio] 28.7 mg/mg High 10-20 [facility] Basic Metabolic Profile (BMP )on 10-01-2024 BUN/CRE 28.7 RATIO High 10-20 [facility] Comment on above: Performed By: #### L 100.0100, L500.2500, L500.3400 ####[facility] [address] [place], [address] Calcium [Mass/Vol] 9.0 mg/dL Normal 7.6-11.[address] [facility] Comment on above: Performed By: #### L 100.0100, L500.2500, L500.3400 ####[facility] [address] [place], [address] Chloride [Moles/Vol] 92 mmol/L Low 98-108 [facility] Comment on above: Performed By: #### L 100.0100, L500.2500, L500.3400 ####[facility] [address] [place], [address] CO2 [Moles/Vol] 28.3 mmol/L Normal 21.0-32.0 [facility] Comment on above: Performed By: #### L 100.0100, L500.2500, L500.3400 ####[facility] [address] [place], [address] Creatinine [Mass/Vol] 1.17 mg/dL Normal 0.70-1.20 [facility] Comment on above: Performed By: #### L 100.0100, L500.2500, L500.3400 ####[facility] [address] [place], [address] ECRCL 32.33 ml/min Low 50-250 [facility] Comment on above: Performed By: #### L 100.0100, L500.2500, L500.3400 ####[facility] [address] [place], [address] GAP 12 Normal 5-15 [facility] Comment on above: Performed By: #### L 100.0100, L500.2500, L500.3400 ####[facility] [address] [place], [address] GFR/1.73 sq M.predicted among non-blacks MDRD (S/P/Bld) [Vol rate/Area] 45 mL/min/{1.73_m2} Low >60 [facility] Comment on above: Result Comment: mL/m in/1.73m2 CKD-EPI Creatinine Equation (2020) Performed By: #### L 100.0100, L500.2500, L500.3400 ####[facility] [address], [address] Glucose [Mass/Vol] 116 mg/dL High 70-[address] [facility] Comment on above: Performed By: #### L 100.0100, L500.2500, L500.3400 ####[facility] [address] [place], [address] Potassium [Moles/Vol] 4.3 mmol/L Normal 3.3-5.1 [facility] Comment on above: Performed By: #### L 100.0100, L500.2500, L500.3400 ####[facility] [address] [place], [address] Sodium [Moles/Vol] 133 mmol/L Normal 133-[address] [facility] Comment on above: Performed By: #### L 100.0100, L500.2500, L500.3400 ####[facility] [address] [place], [address] Urea nitrogen [Mass/Vol] 34 mg/dL High - [facility] Comment on above: Performed By: #### L 100.0100, L500.2500, L500.3400 ####[facility] [address] [place], [address] Basophil percentageOrdered B y: Ayaz Hinton on 10-01-2024 Basophils/100 WBC (Bld) 0.6 % 0-1 [facility] Bilirubin Test strip Ql (U)O rdered By: Ayaz Hinton on 10-01-2024 Bilirubin Ql (U) Negative Negative [facility] Bilirubin directOrdered By: Ayaz Hinton on 10-01-2024 Bilirubin.direct [Mass/Vol] 0.23 mg/dL 0.00-0.30 [facility] Bilirubin, totalOrdered By: Ayaz Hinton on 10-01-2024 Bilirubin [Mass/Vol] 0.42 mg/dL 0.00-1.30 [facility] CBC W/Diff, Automatedon 09-10 Absolute Lymph 1.04 X10 3/uL Normal 0.83-4.51 [facility] Comment on above: Performed By: #### L 100.0100, L500.2500, L500.3400 ####[facility] [address] [place], [address] Absolute Neut 7.6 X10 3/uL Normal 2.0-7.7 [facility] Comment on above: Performed By: #### L 100.0100, L500.2500, L500.3400 ####[facility] [address] [place], [address] Basophils/100 WBC (Bld) 0.6 % Normal 0-1 [facility] Comment on above: Performed By: #### L 100.0100, L500.2500, L500.3400 ####[facility] [address] [place], [address] Eosinophils/100 WBC (Bld) 1.9 % Normal 0-5 [facility] Comment on above: Performed By: #### L 100.0100, L500.2500, L500.3400 ####[facility] [address] [place], [address] Erythrocyte distribution width (RBC) [Ratio] 13.3 % Normal 11.6-14.6 [facility] Comment on above: Performed By: #### L 100.0100, L500.2500, L500.3400 ####[facility] [address] [place], [address] Hematocrit (Bld) [Volume fraction] 36.1 % Low 37-47 [facility] Comment on above: Performed By: #### L 100.0100, L500.2500, L500.3400 ####[facility] [address] [place], [address] Hemoglobin (Bld) [Mass/Vol] 11.3 g/dL Low 12.0-15.0 [facility] Comment on above: Performed By: #### L 100.0100, L500.2500, L500.3400 ####[facility] [address] [place], [address] IG% 0.800 Normal 0.0-0.9 [facility] Comment on above: Result Comment: IG% - Immature Granulocytes (promyelocytes, myelocytes andmetamyelocytes) > 1% indicates that a LEFT SHIFT is Present. Performed By: #### L 100.0100, L500.2500, L500.3400 ####[facility] [address] [place], [address] Lymphocytes/100 WBC (Bld) 10.9 % Low 19-41 [facility] Comment on above: Performed By: #### L 100.0100, L500.2500, L500.3400 ####[facility] [address] [place], [address] MCH (RBC) [Entitic mass] 28.5 pg Normal 27.0-32.0 [facility] Comment on above: Performed By: #### L 100.0100, L500.2500, L500.3400 ####[facility] [address] [place], [address] MCHC (RBC) [Mass/Vol] 31.3 g/dL Low 32-36 [facility] Comment on above: Performed By: #### L 100.0100, L500.2500, L500.3400 ####[facility] [address] [place], [address] MCV (RBC) [Entitic vol] 91.2 fL Normal 81-99 [facility] Comment on above: Performed By: #### L 100.0100, L500.2500, L500.3400 ####[facility] [address] [place], [address] Monocytes/100 WBC (Bld) 6.0 % Normal 0-10 [facility] Comment on above: Performed By: #### L 100.0100, L500.2500, L500.3400 ####[facility] [address] [place], [address] Neutrophils/100 WBC (Bld) 79.8 % High 47-70 [facility] Comment on above: Performed By: #### L 100.0100, L500.2500, L500.3400 ####[facility] [address] [place], [address] Nucleated RBC (Bld) [#/Vol] 0 10*3/uL Normal 0-5 [facility] Comment on above: Performed By: #### L 100.0100, L500.2500, L500.3400 ####[facility] [address] [place], [address] Platelet mean volume (Bld) [Entitic vol] 9.1 fL Normal 6.2-12.0 [facility] Comment on above: Performed By: #### L 100.0100, L500.2500, L500.3400 ####[facility] [address] [place], [address] Platelets (Bld) [#/Vol] 374 10*3/uL Normal 150-450 [facility] Comment on above: Performed By: #### L 100.0100, L500.2500, L500.3400 ####[facility] [address] [place], [address] RBC (Bld) [#/Vol] 3.96 10*6/uL Low 4.2-5.4 [facility] Comment on above: Performed By: #### L 100.0100, L500.2500, L500.3400 ####[facility] [address] [place], [address] RDW SD 44.9 fl High 35.1-43.9 [facility] Comment on above: Performed By: #### L 100.0100, L500.2500, L500.3400 ####[facility] [address] [place], [address] WBC (Bld) [#/Vol] 9.5 10*3/uL Normal 4.4-11.[address] [facility] Comment on above: Performed By: #### L 100.0100, L500.2500, L500.3400 ####[facility] [address] [place], [address] Carbon dioxide, total [Moles /volume] in Central venous bloodOrdered By: Ayaz Hinton on 10-01-2024 CO2 [Moles/Vol] 28.3 mmol/L 21.0-32.0 [facility] Chest 1 View (Portable)on Chest 1 View (Portable) Normal [facility] Chloride assayOrdered By: Freddie Hinton on 10-01-2024 Chloride [Moles/Vol] 92 mmol/L Low 98-108 [facility] Emergency Department Summary on 10-01-2024 Emergency Department Summary Normal [facility] Eosinophil percentageOrdered By: Ayaz Hinton on 10-01-2024 Eosinophils/100 WBC (Bld) 1.9 % 0-5 [facility] Erythrocyte distribution wid th ratioOrdered By: Ayaz Hinton on 10-01-2024 Erythrocyte distribution width (RBC) [Ratio] 13.3 % 11.6-14.6 [facility] Erythrocyte distribution wid th standard deviationOrdered By: Ayaz Hniton on 10-01-2024 Erythrocyte distribution width (RBC) [Ratio] 44.9 fl High 35.1-43.9 [facility] Glomerular filtration rate ( GFR) estimation/1.73 sq m using serum, plasma, or whole bOrdered By: Ayaz Hinton on 10-01-2024 GFR/1.73 sq M.predicted among non-blacks MDRD (S/P/Bld) [Vol rate/Area] 45 mL/min/{1.73_m2} Low >60 [facility] Hematocrit Auto (Bld) [Volum e fraction]Ordered By: Ayaz Hinton on 10-01-2024 Hematocrit (Bld) [Volume fraction] 36.1 % Low 37-47 [facility] Hemoglobin measurementOrdere d By: Ayaz Hinton on 10-01-2024 Hemoglobin (Bld) [Mass/Vol] 11.3 g/dL Low 12.0-15.0 [facility] Immature granulocytes/100 WB C Auto (Bld)Ordered By: Ayaz Hinton on 10-01-2024 Immature granulocytes/100 WBC (Bld) 0.800 % 0.0-0.9 [facility] Ketones Test strip Ql (U)Ord ered By: Ayaz Hinton on 10-01-2024 Ketones Ql (U) Negative Negative [facility] Liver Profileon 10-01-2024 Albumin [Mass/Vol] 4.1 g/dL Normal 3.4-4.[address] [facility] Comment on above: Performed By: #### L 100.0100, L500.2500, L500.3400 ####[facility] [address] [place], [address] ALK PHOS 96 U/L Normal 35-104 [facility] Comment on above: Performed By: #### L 100.0100, L500.2500, L500.3400 ####[facility] [address], [address] ALT [Catalytic activity/Vol] 9 U/L Normal <=34 [facility] Comment on above: Performed By: #### L 100.0100, L500.2500, L500.3400 ####[facility] [address] [place], [address] AST [Catalytic activity/Vol] 23 U/L Normal <=31 [facility] Comment on above: Performed By: #### L 100.0100, L500.2500, L500.3400 ####[facility] [address] [place], [address] Bilirubin [Mass/Vol] 0.42 mg/dL Normal 0.00-1.30 [facility] Comment on above: Performed By: #### L 100.0100, L500.2500, L500.3400 ####[facility] [address] [place], [address] Bilirubin.direct [Mass/Vol] 0.23 mg/dL Normal 0.00-0.30 [facility] Comment on above: Performed By: #### L 100.0100, L500.2500, L500.3400 ####[facility] [address] [place], [address] Globulin (S) [Mass/Vol] 3.0 g/dL Normal 2.2-4.2 [facility] Comment on above: Performed By: #### L 100.0100, L500.2500, L500.3400 ####[facility] [address] [place], [address] T PROT 7.1 g/dL Normal 5.9-8.4 [facility] Comment on above: Performed By: #### L 100.0100, L500.2500, L500.3400 ####[facility] [address] [place], [address] MCV (mean corpuscular volume ) determinationOrdered By: Ayaz Hinton on 10-01-2024 MCV (RBC) [Entitic vol] 91.2 fL 81-99 [facility] Mean corpuscular hemoglobin (MCH) determinationOrdered By: Ayaz Hinton on 10-01-2024 MCH (RBC) [Entitic mass] 28.5 pg 27.0-32.0 [facility] Monocyte percentageOrdered B y: Ayaz Hinton on 10-01-2024 Monocytes/100 WBC (Bld) 6.0 % 0-10 [facility] Mucus LM Ql (Urine sed)Order ed By: Ayaz Hinton on 10-01-2024 Mucus Ql (Urine sed) 0 SEEN /hpf [facility] Neutrophil percentageOrdered By: Ayaz Hinton on 10-01-2024 Neutrophils/100 WBC (Bld) 79.8 % High 47-70 [facility] Nitrite Test strip Ql (U)Ord ered By: Ayaz Hinton on 10-01-2024 Nitrite Ql (U) Negative Negative [facility] No Panel InformationOrdered By: Ayaz Hinton on 10-01-2024 23 U/L <32 [facility] Platelet countOrdered By: Freddie Hinton on 10-01-2024 Platelets (Bld) [#/Vol] 374 10*3/uL 150-450 [facility] Potassium measurement (mass/ volume)Ordered By: Ayaz Hinton on 10-01-2024 Potassium (Unsp spec) [Mass/Vol] 4.3 mmol/L 3.3-5.1 [facility] Protein Test strip Ql (U)Ord ered By: Ayaz Hinton on 10-01-2024 Protein Ql (U) 100 mg/dl High Negative [facility] RBC Auto (Bld) [#/Vol]Ordere d By: yAaz Hinton on 10-01-2024 RBC (Bld) [#/Vol] 3.96 10*6/uL Low 4.2-5.4 [facility] Serum creatinine measurement (mass/volume)Ordered By: Ayaz Hinton on 10-01-2024 Creatinine [Mass/Vol] 1.17 mg/dL 0.70-1.20 [facility] Serum globulin measurementOr dered By: Ayaz Hinton on 10-01-2024 Globulin (S) [Mass/Vol] 3.0 g/dL 2.2-4.2 [facility] Serum glucose measurement (m ass/volume)Ordered By: Ayaz Hinton on 10-01-2024 Glucose [Mass/Vol] 116 mg/dL High 70-[address] [facility] Serum or plasma alanine clifton otransferase (ALT) measurementOrdered By: Ayaz Hinton on 10-01-2024 ALT [Catalytic activity/Vol] 9 U/L <35 [facility] Serum or plasma albumin manuel urement (mass/volume)Ordered By: Ayaz Hinton on 10-01-2024 Albumin [Mass/Vol] 4.1 g/dL 3.4-4.[address] [facility] Serum or plasma alkaline bibi sphatase measurementOrdered By: Ayaz Hinton on 10-01-2024 ALP [Catalytic activity/Vol] 96 U/L 35-104 [facility] Serum or plasma calcium manuel urement (mass/volume)Ordered By: Ayaz Hinton on 10-01-2024 Calcium [Mass/Vol] 9.0 mg/dL 7.6-11.[address] [facility] Serum or plasma urea nitroge n measurement (mass/volume)Ordered By: Ayaz Hinton on 10-01-2024 Urea nitrogen [Mass/Vol] 34 mg/dL High 4-19 [facility] Sodium levelOrdered By: Marquise Hinton on 10-01-2024 Sodium [Moles/Vol] 133 mmol/L 133-[address] [facility] Squamous epithelial cells de tection in urine sediment by light microscopyOrdered By: Ayaz Hinton on 10-01-2024 Epithelial cells.squamous LM Ql (Urine sed) 0 SEEN /hpf 5- [facility] Total proteinOrdered By: Kota Hinton on 10-01-2024 Protein [Mass/Vol] 7.1 g/dL 5.9-8.[address] [facility] Urinalysis, Completeon 10-01 AMORPHOUS 2+ Normal [facility] Comment on above: Order Comment: MARV CTOR TO SPECIFY Performed By: #### L 400.0001 ####[facility] [address] [place], [place], [id number] BACTERIA 1+ /hpf Normal None Seen [facility] Comment on above: Order Comment: MARV CTOR TO SPECIFY Performed By: #### L 400.0001 ####[facility] [address] [place], [address] RBC 0-5 SEEN Normal 0-5 [facility] Comment on above: Order Comment: MARV CTOR TO SPECIFY Performed By: #### L 400.0001 ####[facility] [address] [place], [address] WBC 10-25 SEEN Normal 0-5 [facility] Comment on above: Order Comment: MARV CTOR TO SPECIFY Performed By: #### L 400.0001 ####[facility] [address] [place], [address] EPI,SQUAMOUS 0 SEEN Normal 5-10 [facility] Comment on above: Order Comment: MARV CTOR TO SPECIFY Performed By: #### L 400.0001 ####[facility] [address] [place], [place], [id number] Mucus Ql (Urine sed) 0 SEEN Normal [facility] Comment on above: Order Comment: MARV CTOR TO SPECIFY Performed By: #### L 400.0001 ####[facility] [address] [place], [place], [id number] Urine clarityOrdered By: Kota Hinton on 10-01-2024 Clarity (U) Cloudy Clear [facility] Urine color determinationOrd ered By: Ayaz Hinton on 10-01-2024 Color (U) Yellow Yellow [facility] Urine cultureOrdered By: Kota Hinton on 10-01-2024 Bacteria identified Cx Nom (U) Aerococcus urinae Abnormal [facility] Urine glucose detectionOrder ed By: Ayaz Hinton on 10-01-2024 Glucose Ql (U) Normal mg/dl Normal [facility] Urine leukocyte esterase det ection by dipstickOrdered By: Ayaz Hinton on 10-01-2024 Leukocyte esterase Test strip Ql (U) 100 /ul High Negative [facility] Urine pHOrdered By: Ayaz amaro on 10-01-2024 pH (U) 6.0 [pH] 5.0 - 8.0 [facility] Urine sediment bacteria coun t by microscopy (number/high power field)Ordered By: Ayaz Hinton on 10-01-2024 Bacteria LM.HPF (Urine sed) [#/Area] 1 /[HPF] None Seen [facility] Urine specific gravity measu rementOrdered By: Ayaz Hinton on 10-01-2024 Specific gravity (U) [Rel density] 1.010 1.002-1.030 [facility] Urine urobilinogen measureme ntOrdered By: Ayaz Hinton on 10-01-2024 Urobilinogen Ql (U) Normal mg/dl Normal [facility] White blood cell (WBC) count Ordered By: Ayaz Hinton on 10-01-2024 WBC (Bld) [#/Vol] 9.5 10*3/uL 4.4-11.[address] [facility] White blood cell countOrdere d By: Ayaz Hinton on 10-01-2024 White blood cell count 10-25 SEEN /hpf 0-5 [facility] Absolute lymphocyte countOrd ered By: Zackary Lyon on 09-06-2024 Lymphocytes Auto (Unsp spec) [#/Vol] 1.76 10*3/uL 0.83-4.51 [facility] Anion gap in Serum or Plasma Ordered By: Zackary Lyon on 09-06-2024 Anion gap [Moles/Vol] 11 mmol/L 5-15 [facility] Automated lymphocyte count a s percentage of total leukocytesOrdered By: Zackary Lyon on 09-06-2024 Lymphocytes/100 WBC Auto (Unsp spec) 26.3 % 19-41 [facility] BUN/creatinine ratioOrdered By: Zackary Lyon on 09-06-2024 Urea nitrogen/Creatinine [Mass ratio] 40.3 mg/mg High 10-20 [facility] Basophil percentageOrdered B y: Zackary Lyon on 09-06-2024 Basophils/100 WBC (Bld) 1.0 % 0-1 [facility] Bilirubin, totalOrdered By: Zackary Lyon on 09-06-2024 Bilirubin [Mass/Vol] 0.16 mg/dL 0.00-1.30 [facility] Carbon dioxide, total [Moles /volume] in Central venous bloodOrdered By: Zackary Lyon on 09-06-2024 CO2 [Moles/Vol] 25.0 mmol/L 21.0-32.0 [facility] Chloride assayOrdered By: Jesse Lyon on 09-06-2024 Chloride [Moles/Vol] 101 mmol/L 98-108 [facility] Eosinophil percentageOrdered By: Zackary Lyon on 09-06-2024 Eosinophils/100 WBC (Bld) 5.2 % High 0-5 [facility] Erythrocyte distribution wid th ratioOrdered By: Zackary Lyon on 09-06-2024 Erythrocyte distribution width (RBC) [Ratio] 12.9 % 11.6-14.6 [facility] Erythrocyte distribution wid th standard deviationOrdered By: Zackary Lyon on 09-06-2024 Erythrocyte distribution width (RBC) [Ratio] 44.5 fl High 35.1-43.9 [facility] Glomerular filtration rate ( GFR) estimation/1.73 sq m using serum, plasma, or whole bOrdered By: Zackary Lyon on 09-06-2024 GFR/1.73 sq M.predicted among non-blacks MDRD (S/P/Bld) [Vol rate/Area] 68 mL/min/{1.73_m2} >60 [facility] Hematocrit Auto (Bld) [Volum e fraction]Ordered By: Zackary Lyon on 09-06-2024 Hematocrit (Bld) [Volume fraction] 29.8 % Low 37-47 [facility] Hemoglobin measurementOrdere d By: Zackary Lyon on 09-06-2024 Hemoglobin (Bld) [Mass/Vol] 9.4 g/dL Low 12.0-15.0 [facility] Immature granulocytes/100 WB C Auto (Bld)Ordered By: Zackray Lyon on 09-06-2024 Immature granulocytes/100 WBC (Bld) 0.400 % 0.0-0.9 [facility] MCV (mean corpuscular volume ) determinationOrdered By: Zackary Lyon on 09-06-2024 MCV (RBC) [Entitic vol] 93.7 fL 81-99 [facility] Mean corpuscular hemoglobin (MCH) determinationOrdered By: Zackary Lyon on 09-06-2024 MCH (RBC) [Entitic mass] 29.6 pg 27.0-32.0 [facility] Monocyte percentageOrdered B y: Zackary Lyon on 09-06-2024 Monocytes/100 WBC (Bld) 10.6 % High 0-10 [facility] Neutrophil percentageOrdered By: Zackary Lyon on 09-06-2024 Neutrophils/100 WBC (Bld) 56.5 % 47-70 [facility] [facility] No Panel InformationOrdered By: Zackary Lyon on 09-06-2024 19 U/L <32 [facility] Platelet countOrdered By: Jesse Lyon on 09-06-2024 Platelets (Bld) [#/Vol] 337 10*3/uL 150-450 [facility] Potassium measurement (mass/ volume)Ordered By: Zackary Lyon on 09-06-2024 Potassium (Unsp spec) [Mass/Vol] 4.3 mmol/L 3.3-5.1 [facility] RBC Auto (Bld) [#/Vol]Ordere d By: Zackary Lyon on 09-06-2024 RBC (Bld) [#/Vol] 3.18 10*6/uL Low 4.2-5.4 [facility] Serum creatinine measurement (mass/volume)Ordered By: Zackary Lyon on 09-06-2024 Creatinine [Mass/Vol] 0.83 mg/dL 0.70-1.20 [facility] Serum globulin measurementOr dered By: Zackary Lyon on 09-06-2024 Globulin (S) [Mass/Vol] 2.7 g/dL 2.2-4.2 [facility] Serum glucose measurement (m ass/volume)Ordered By: Zackary Lyon on 09-06-2024 Glucose [Mass/Vol] 88 mg/dL 70-[address] [facility] Serum or plasma alanine clifton otransferase (ALT) measurementOrdered By: Zackary Lyon 09-06-2024 ALT [Catalytic activity/Vol] 11 U/L <35 [facility] Serum or plasma albumin maneul urement (mass/volume)Ordered By: Zackary Lyon 09-06-2024 Albumin [Mass/Vol] 3.5 g/dL 3.4-4.[address] [facility] Serum or plasma albumin/glob ulin mass ratioOrdered By: Zackary Lyon 09-06-2024 Albumin/Globulin [Mass ratio] 1.3 {ratio} 0.9-2.4 [facility] Serum or plasma alkaline bibi sphatase measurementOrdered By: Zackary Lyon 09-06-2024 ALP [Catalytic activity/Vol] 60 U/L 35-104 [facility] Serum or plasma calcium manuel urement (mass/volume)Ordered By: Zackary Toddmonicasalvador on 09-06-2024 Calcium [Mass/Vol] 10.0 mg/dL 7.6-11.[address] [facility] Serum or plasma urea nitroge n measurement (mass/volume)Ordered By: Zackary Toddmonicasalvador on 09-06-2024 Urea nitrogen [Mass/Vol] 33 mg/dL High 4-19 [facility] Sodium levelOrdered By: Yohannes navarro Toddletty on 09-06-2024 Sodium [Moles/Vol] 137 mmol/L 133-[address] [facility] Total proteinOrdered By: James mason Toddletty on 09-06-2024 Protein [Mass/Vol] 6.1 g/dL 5.9-8.[address] [facility] White blood cell (WBC) count Ordered By: Jesseyariellouisnataly Lyon on 09-06-2024 WBC (Bld) [#/Vol] 6.7 10*3/uL 4.4-11.[address] [facility] Absolute lymphocyte countOrd ered By: Juan José Thorpe on 09-03-2024 Lymphocytes Auto (Unsp spec) [#/Vol] 1.68 10*3/uL 0.83-4.51 [facility] Anion gap in Serum or Plasma Ordered By: Juan José Thorpe on 09-03-2024 Anion gap [Moles/Vol] 14 mmol/L 5-15 [facility] Automated lymphocyte count a s percentage of total leukocytesOrdered By: Juan José Thorpe on 09-03-2024 Lymphocytes/100 WBC Auto (Unsp spec) 23.3 % 19-41 [facility] BUN/creatinine ratioOrdered By: Juan José Thorpe on 09-03-2024 Urea nitrogen/Creatinine [Mass ratio] 26.1 mg/mg High 10- [facility] Basic Metabolic Profile (BMP )on 09-03-2024 BUN/CRE 26.1 RATIO High 02-28 [facility] Comment on above: Performed By: #### L 100.0100, L500.2500 ####[facility] [address] [place], [address] Calcium [Mass/Vol] 9.5 mg/dL Normal 7.6-11.[address] [facility] Comment on above: Performed By: #### L 100.0100, L500.2500 ####[facility] [address] [place], [address] Chloride [Moles/Vol] 102 mmol/L Normal 98-108 [facility] Comment on above: Performed By: #### L 100.0100, L500.2500 ####[facility] [address] [place], [address] CO2 [Moles/Vol] 23.3 mmol/L Normal 21.0-32.0 [facility] Comment on above: Performed By: #### L 100.0100, L500.2500 ####[facility] [address] [place], [address] Creatinine [Mass/Vol] 0.78 mg/dL Normal 0.70-1.20 [facility] Comment on above: Performed By: #### L 100.0100, L500.2500 ####[facility] [address] [place], [address] ECRCL 47.90 ml/min Low 50-250 [facility] Comment on above: Performed By: #### L 100.0100, L500.2500 ####[facility] [address] [place], [address] GAP 14 Normal 5-15 [facility] Comment on above: Performed By: #### L 100.0100, L500.2500 ####[facility] [address] [place], [address] GFR/1.73 sq M.predicted among non-blacks MDRD (S/P/Bld) [Vol rate/Area] 73 mL/min/{1.73_m2} Normal >60 [facility] Comment on above: Result Comment: mL/m in/1.73m2 CKD-EPI Creatinine Equation (2020) Performed By: #### L 100.0100, L500.2500 ####[facility] [address] [place], [address] Glucose [Mass/Vol] 113 mg/dL High 70-[address] [facility] Comment on above: Performed By: #### L 100.0100, L500.2500 ####[facility] [address] [place], [address] Potassium [Moles/Vol] 3.2 mmol/L Low 3.3-5.1 [facility] Comment on above: Performed By: #### L 100.0100, L500.2500 ####[facility] [address] [place], [address] Sodium [Moles/Vol] 139 mmol/L Normal 133-[address] [facility] Comment on above: Performed By: #### L 100.0100, L500.2500 ####[facility] [address] [place], [address] Urea nitrogen [Mass/Vol] 20 mg/dL High 4-19 [facility] Comment on above: Performed By: #### L 100.0100, L500.2500 ####[facility] [address] [place], [address] Basophil percentageOrdered B y: Juan José Thorpe on 09-03-2024 Basophils/100 WBC (Bld) 0.8 % 0-1 [facility] CBC W/Diff, Automatedon 08-11 Absolute Lymph 1.68 X10 3/uL Normal 0.83-4.51 [facility] Comment on above: Performed By: #### L 100.0100, L500.2500 ####[facility] [address] [place], [address] Absolute Neut 4.3 X10 3/uL Normal 2.0-7.7 [facility] Comment on above: Performed By: #### L 100.0100, L500.2500 ####[facility] [address] [place], [address] Basophils/100 WBC (Bld) 0.8 % Normal 0-1 [facility] Comment on above: Performed By: #### L 100.0100, L500.2500 ####[facility] [address] [place], [address] Eosinophils/100 WBC (Bld) 6.9 % High 0-5 [facility] Comment on above: Performed By: #### L 100.0100, L500.2500 ####[facility] [address] [place], [address] Erythrocyte distribution width (RBC) [Ratio] 13.0 % Normal 11.6-14.6 [facility] Comment on above: Performed By: #### L 100.0100, L500.2500 ####[facility] [address] [place], [address] Hematocrit (Bld) [Volume fraction] 30.7 % Low 37-47 [facility] Comment on above: Performed By: #### L 100.0100, L500.2500 ####[facility] [address] [place], [address] Hemoglobin (Bld) [Mass/Vol] 9.7 g/dL Low 12.0-15.0 [facility] Comment on above: Performed By: #### L 100.0100, L500.2500 ####[facility] [address] [place], [address] IG% 0.400 Normal 0.0-0.9 [facility] Comment on above: Result Comment: IG% - Immature Granulocytes (promyelocytes, myelocytes andmetamyelocytes) > 1% indicates that a LEFT SHIFT is Present. Performed By: #### L 100.0100, L500.2500 ####[facility] [address] [place], [address] Lymphocytes/100 WBC (Bld) 23.3 % Normal 19-41 [facility] Comment on above: Performed By: #### L 100.0100, L500.2500 ####[facility] [address] [place], [address] MCH (RBC) [Entitic mass] 29.3 pg Normal 27.0-32.0 [facility] Comment on above: Performed By: #### L 100.0100, L500.2500 ####[facility] [address] [place], [address] MCHC (RBC) [Mass/Vol] 31.6 g/dL Low 32-36 [facility] Comment on above: Performed By: #### L 100.0100, L500.2500 ####[facility] [address] [place], [address] MCV (RBC) [Entitic vol] 92.7 fL Normal 81-99 [facility] Comment on above: Performed By: #### L 100.0100, L500.2500 ####[facility] [address] [place], [address] Monocytes/100 WBC (Bld) 8.2 % Normal 0-10 [facility] Comment on above: Performed By: #### L 100.0100, L500.2500 ####[facility] [address] [place], [address] Neutrophils/100 WBC (Bld) 60.4 % Normal 47-70 [facility] Comment on above: Performed By: #### L 100.0100, L500.2500 ####[facility] [address] [place], [address] Nucleated RBC (Bld) [#/Vol] 0 10*3/uL Normal 0-5 [facility] Comment on above: Performed By: #### L 100.0100, L500.2500 ####[facility] [address] [place], [address] Platelet mean volume (Bld) [Entitic vol] 9.9 fL Normal 6.2-12.0 [facility] Comment on above: Performed By: #### L 100.0100, L500.2500 ####[facility] [address] [place], [address] Platelets (Bld) [#/Vol] 302 10*3/uL Normal 150-450 [facility] Comment on above: Performed By: #### L 100.0100, L500.2500 ####[facility] [address] [place], [address] RBC (Bld) [#/Vol] 3.31 10*6/uL Low 4.2-5.4 [facility] Comment on above: Performed By: #### L 100.0100, L500.2500 ####[facility] [address] [place], [address] RDW SD 44.4 fl High 35.1-43.9 [facility] Comment on above: Performed By: #### L 100.0100, L500.2500 ####[facility] [address] [place], [address] WBC (Bld) [#/Vol] 7.2 10*3/uL Normal 4.4-11.[address] [facility] Comment on above: Performed By: #### L 100.0100, L500.2500 ####[facility] [address] [place], [address] Carbon dioxide, total [Moles /volume] in Central venous bloodOrdered By: Juan José Thorpe on 09-03-2024 CO2 [Moles/Vol] 23.3 mmol/L 21.0-32.0 [facility] Chloride assayOrdered By: Freddie Thorpe on 09-03-2024 Chloride [Moles/Vol] 102 mmol/L 98-108 [facility] Eosinophil percentageOrdered By: Juan José Thorpe on 09-03-2024 Eosinophils/100 WBC (Bld) 6.9 % High 0-5 [facility] Erythrocyte distribution wid th ratioOrdered By: Juan José Thorpe on 09-03-2024 Erythrocyte distribution width (RBC) [Ratio] 13.0 % 11.6-14.6 [facility] Erythrocyte distribution wid th standard deviationOrdered By: Juan José Thorpe on 09-03-2024 Erythrocyte distribution width (RBC) [Ratio] 44.4 fl High 35.1-43.9 [facility] Glomerular filtration rate ( GFR) estimation/1.73 sq m using serum, plasma, or whole bOrdered By: Juan José Thorpe on 09-03-2024 GFR/1.73 sq M.predicted among non-blacks MDRD (S/P/Bld) [Vol rate/Area] 73 mL/min/{1.73_m2} >60 [facility] Hematocrit Auto (Bld) [Volum e fraction]Ordered By: Juan José Thorpe on 09-03-2024 Hematocrit (Bld) [Volume fraction] 30.7 % Low 37-47 [facility] Hemoglobin measurementOrdere d By: Juan José Thorpe on 09-03-2024 Hemoglobin (Bld) [Mass/Vol] 9.7 g/dL Low 12.0-15.0 [facility] Immature granulocytes/100 WB C Auto (Bld)Ordered By: Juan José Thorpe on 09-03-2024 Immature granulocytes/100 WBC (Bld) 0.400 % 0.0-0.9 [facility] MCV (mean corpuscular volume ) determinationOrdered By: Juan José Thorpe on 09-03-2024 MCV (RBC) [Entitic vol] 92.7 fL 81-99 [facility] Mean corpuscular hemoglobin (MCH) determinationOrdered By: Juan José Thorpe on 09-03-2024 MCH (RBC) [Entitic mass] 29.3 pg 27.0-32.0 [facility] Monocyte percentageOrdered B y: Juan José Thorpe on 09-03-2024 Monocytes/100 WBC (Bld) 8.2 % 0-10 [facility] Neutrophil percentageOrdered By: Juan José Thorpe on 09-03-2024 Neutrophils/100 WBC (Bld) 60.4 % 47-70 [facility] Platelet countOrdered By: Freddie Thorpe on 09-03-2024 Platelets (Bld) [#/Vol] 302 10*3/uL 150-450 [facility] Potassium measurement (mass/ volume)Ordered By: Juan José Thorpe on 09-03-2024 Potassium (Unsp spec) [Mass/Vol] 3.2 mmol/L Low 3.3-5.1 [facility] RBC Auto (Bld) [#/Vol]Ordere d By: Juan José Thorpe on 09-03-2024 RBC (Bld) [#/Vol] 3.31 10*6/uL Low 4.2-5.4 [facility] Serum creatinine measurement (mass/volume)Ordered By: Juan José Thorpe on 09-03-2024 Creatinine [Mass/Vol] 0.78 mg/dL 0.70-1.20 [facility] Serum glucose measurement (m ass/volume)Ordered By: Juan José Thorpe on 09-03-2024 Glucose [Mass/Vol] 113 mg/dL High 70-[address] [facility] Serum or plasma calcium manuel urement (mass/volume)Ordered By: Juan José Thorpe on 09-03-2024 Calcium [Mass/Vol] 9.5 mg/dL 7.6-11.[address] [facility] Serum or plasma urea nitroge n measurement (mass/volume)Ordered By: Juan José Thorpe on 09-03-2024 Urea nitrogen [Mass/Vol] 20 mg/dL High 4-19 [facility] Sodium levelOrdered By: Carroll Thorpe on 09-03-2024 Sodium [Moles/Vol] 139 mmol/L 133-[address] [facility] White blood cell (WBC) count Ordered By: Juan José Thorpe on 09-03-2024 WBC (Bld) [#/Vol] 7.2 10*3/uL 4.4-11.[address] [facility] Bilirubin, totalOrdered By: Juan José Thorpe on 09-02-2024 Bilirubin [Mass/Vol] 0.27 mg/dL 0.00-1.30 [facility] CBC W/Diff, Automatedon 08-11 Absolute Lymph 1.63 X10 3/uL Normal 0.83-4.51 [facility] Comment on above: Performed By: #### L 100.0100, L500.4050, L501.2300, L501.5200 ####[facility] [address] [place], [address] Absolute Neut 6.4 X10 3/uL Normal 2.0-7.7 [facility] Comment on above: Performed By: #### L 100.0100, L500.4050, L501.2300, L501.5200 ####[facility] [address] [place], [address] Basophils/100 WBC (Bld) 0.5 % Normal 0-1 [facility] Comment on above: Performed By: #### L 100.0100, L500.4050, L501.2300, L501.5200 ####[facility] [address] [place], [address] Eosinophils/100 WBC (Bld) 3.9 % Normal 0-5 [facility] Comment on above: Performed By: #### L 100.0100, L500.4050, L501.2300, L501.5200 ####[facility] [address] [place], [address] Erythrocyte distribution width (RBC) [Ratio] 13.1 % Normal 11.6-14.6 [facility] Comment on above: Performed By: #### L 100.0100, L500.4050, L501.2300, L501.5200 ####[facility] [address] [place], [address] Hematocrit (Bld) [Volume fraction] 31.2 % Low 37-47 [facility] Comment on above: Performed By: #### L 100.0100, L500.4050, L501.2300, L501.5200 ####[facility] [address] [place], [address] Hemoglobin (Bld) [Mass/Vol] 10.0 g/dL Low 12.0-15.0 [facility] Comment on above: Performed By: #### L 100.0100, L500.4050, L501.2300, L501.5200 ####[facility] [address] [place], [address] IG% 0.300 Normal 0.0-0.9 [facility] Comment on above: Result Comment: IG% - Immature Granulocytes (promyelocytes, myelocytes andmetamyelocytes) > 1% indicates that a LEFT SHIFT is Present. Performed By: #### L 100.0100, L500.4050, L501.2300, L501.5200 ####[facility] [address] [place], [address] Lymphocytes/100 WBC (Bld) 17.4 % Low 19-41 [facility] Comment on above: Performed By: #### L 100.0100, L500.4050, L501.2300, L501.5200 ####[facility] [address] [place], [address] MCH (RBC) [Entitic mass] 29.6 pg Normal 27.0-32.0 [facility] Comment on above: Performed By: #### L 100.0100, L500.4050, L501.2300, L501.5200 ####[facility] [address] [place], [address] MCHC (RBC) [Mass/Vol] 32.1 g/dL Normal 32-36 [facility] Comment on above: Performed By: #### L 100.0100, L500.4050, L501.2300, L501.5200 ####[facility] [address] [place], [address] MCV (RBC) [Entitic vol] 92.3 fL Normal 81-99 [facility] Comment on above: Performed By: #### L 100.0100, L500.4050, L501.2300, L501.5200 ####[facility] [address] [place], [address] Monocytes/100 WBC (Bld) 9.6 % Normal 0-10 [facility] Comment on above: Performed By: #### L 100.0100, L500.4050, L501.2300, L501.5200 ####[facility] [address] [place], [address] Neutrophils/100 WBC (Bld) 68.3 % Normal 47-70 [facility] Comment on above: Performed By: #### L 100.0100, L500.4050, L501.2300, L501.5200 ####[facility] [address] [place], [address] Nucleated RBC (Bld) [#/Vol] 0 10*3/uL Normal 0-5 [facility] Comment on above: Performed By: #### L 100.0100, L500.4050, L501.2300, L501.5200 ####[facility] [address] [place], [address] Platelet mean volume (Bld) [Entitic vol] 9.5 fL Normal 6.2-12.0 [facility] Comment on above: Performed By: #### L 100.0100, L500.4050, L501.2300, L501.5200 ####[facility] [address] [place], [address] Platelets (Bld) [#/Vol] 314 10*3/uL Normal 150-450 [facility] Comment on above: Performed By: #### L 100.0100, L500.4050, L501.2300, L501.5200 ####[facility] [address] [place], [address] RBC (Bld) [#/Vol] 3.38 10*6/uL Low 4.2-5.4 [facility] Comment on above: Performed By: #### L 100.0100, L500.4050, L501.2300, L501.5200 ####[facility] [address] [place], [address] RDW SD 44.2 fl High 35.1-43.9 [facility] Comment on above: Performed By: #### L 100.0100, L500.4050, L501.2300, L501.5200 ####[facility] [address] [place], [address] WBC (Bld) [#/Vol] 9.4 10*3/uL Normal 4.4-11.[address] [facility] Comment on above: Performed By: #### L 100.0100, L500.4050, L501.2300, L501.5200 ####[facility] [address] [place], [address] Comprehensive Metabolic [facility] 09-02-2024 Albumin [Mass/Vol] 3.6 g/dL Normal 3.4-4.[address] [facility] Comment on above: Performed By: #### L 100.0100, L500.4050, L501.2300, L501.5200 ####[facility] [address] [place], [address] Albumin/Globulin [Mass ratio] 1.3 {ratio} Normal 0.9-2.4 [facility] Comment on above: Performed By: #### L 100.0100, L500.4050, L501.2300, L501.5200 ####[facility] [address] [place], [address] ALK PHOS 62 U/L Normal 35-104 [facility] Comment on above: Performed By: #### L 100.0100, L500.4050, L501.2300, L501.5200 ####[facility] [address] [place], [address] ALT [Catalytic activity/Vol] 9 U/L Normal <=34 [facility] Comment on above: Performed By: #### L 100.0100, L500.4050, L501.2300, L501.5200 ####[facility] [address] [place], [address] AST [Catalytic activity/Vol] 23 U/L Normal <=31 [facility] Comment on above: Performed By: #### L 100.0100, L500.4050, L501.2300, L501.5200 ####[facility] [address] [place], [address] Bilirubin [Mass/Vol] 0.27 mg/dL Normal 0.00-1.30 [facility] Comment on above: Performed By: #### L 100.0100, L500.4050, L501.2300, L501.5200 ####[facility] [address] [place], [address] BUN/CRE 28.3 RATIO High 10-20 [facility] Comment on above: Performed By: #### L 100.0100, L500.4050, L501.2300, L501.5200 ####[facility] [address] [place], [address] Calcium [Mass/Vol] 9.8 mg/dL Normal 7.6-11.[address] [facility] Comment on above: Performed By: #### L 100.0100, L500.4050, L501.2300, L501.5200 ####[facility] [address] [place], [address] Chloride [Moles/Vol] 100 mmol/L Normal 98-108 [facility] Comment on above: Performed By: #### L 100.0100, L500.4050, L501.2300, L501.5200 ####[facility] [address] [place], [address] CO2 [Moles/Vol] 27.2 mmol/L Normal 21.0-32.0 [facility] Comment on above: Performed By: #### L 100.0100, L500.4050, L501.2300, L501.5200 ####[facility] [address] [place], [address] Creatinine [Mass/Vol] 0.82 mg/dL Normal 0.70-1.20 [facility] Comment on above: Performed By: #### L 100.0100, L500.4050, L501.2300, L501.5200 ####[facility] [address] [place], [address] ECRCL 46.73 ml/min Low 50-250 [facility] Comment on above: Performed By: #### L 100.0100, L500.4050, L501.2300, L501.5200 ####[facility] [address] [place], [address] GAP 11 Normal 5-15 [facility] Comment on above: Performed By: #### L 100.0100, L500.4050, L501.2300, L501.5200 ####[facility] [address] [place], [address] GFR/1.73 sq M.predicted among non-blacks MDRD (S/P/Bld) [Vol rate/Area] 69 mL/min/{1.73_m2} Normal >60 [facility] Comment on above: Result Comment: mL/m in/1.73m2 CKD-EPI Creatinine Equation (2020) Performed By: #### L 100.0100, L500.4050, L501.2300, L501.5200 ####[facility] [address] [place], [address] Globulin (S) [Mass/Vol] 2.7 g/dL Normal 2.2-4.2 [facility] Comment on above: Performed By: #### L 100.0100, L500.4050, L501.2300, L501.5200 ####[facility] [address] [place], [address] Glucose [Mass/Vol] 108 mg/dL High 70-[address] [facility] Comment on above: Performed By: #### L 100.0100, L500.4050, L501.2300, L501.5200 ####[facility] [address] [place], [address] Potassium [Moles/Vol] 3.9 mmol/L Normal 3.3-5.1 [facility] Comment on above: Performed By: #### L 100.0100, L500.4050, L501.2300, L501.5200 ####[facility] [address] [place], [address] Sodium [Moles/Vol] 139 mmol/L Normal 133-[address] [facility] Comment on above: Performed By: #### L 100.0100, L500.4050, L501.2300, L501.5200 ####[facility] [address] [place], [address] T PROT 6.3 g/dL Normal 5.9-8.4 [facility] Comment on above: Performed By: #### L 100.0100, L500.4050, L501.2300, L501.5200 ####[facility] [address] [place], [address] Urea nitrogen [Mass/Vol] 23 mg/dL High 4-19 [facility] Comment on above: Performed By: #### L 100.0100, L500.4050, L501.2300, L501.5200 ####[facility] [address] [place], [address] Magnesiumon 09-02-2024 Magnesium [Mass/Vol] 2.1 mg/dL Normal 1.5-2.2 [facility] Comment on above: Performed By: #### L 100.0100, L500.4050, L501.2300, L501.5200 ####[facility] [address] [place], [address] Magnesium measurement (mass/ volume)Ordered By: Juan José Thorpe on 09-02-2024 Magnesium (Unsp spec) [Mass/Vol] 2.1 mg/dL 1.5-2.2 [facility] No Panel InformationOrdered By: Juan José Thorpe on 09-02-2024 23 U/L <32 [facility] Phosphoruson 09-02-2024 Phosphate [Mass/Vol] 4.5 mg/dL Normal 2.7-4.5 [facility] Comment on above: Performed By: #### L 100.0100, L500.4050, L501.2300, L501.5200 ####[facility] [address] [place], [address] Serum globulin measurementOr dered By: Juan José Thorpe on 09-02-2024 Globulin (S) [Mass/Vol] 2.7 g/dL 2.2-4.2 [facility] Serum or plasma alanine clifton otransferase (ALT) measurementOrdered By: Juan José Thorpe on 09-02-2024 ALT [Catalytic activity/Vol] 9 U/L <35 [facility] Serum or plasma albumin manuel urement (mass/volume)Ordered By: Juan José Thorpe on 09-02-2024 Albumin [Mass/Vol] 3.6 g/dL 3.4-4.[address] [facility] Serum or plasma albumin/glob ulin mass ratioOrdered By: Juan José Thorpe on 09-02-2024 Albumin/Globulin [Mass ratio] 1.3 {ratio} 0.9-2.4 [facility] Serum or plasma alkaline bibi sphatase measurementOrdered By: Juan José Thorpe on 09-02-2024 ALP [Catalytic activity/Vol] 62 U/L 35-104 [facility] Total proteinOrdered By: Obed Thorpe on 09-02-2024 Protein [Mass/Vol] 6.3 g/dL 5.9-8.[address] [facility] Alcohol, Blood (Medical)-Ser umon 09-01-2024 SERUM ETOH < 10.1 Normal <=10.0 [facility] Comment on above: Result Comment: This test is for medical purposes only. The legaldefinition of intoxication varies according to local law. Performed By: #### L 501.9100, L505.5000 ####[facility] [address] [place], [address] H AND P Exam - Hospitaliston 09-01-2024 H&P Exam - Hospitalist Normal [facility] Urine Drug Screen (VISTA)on 09-01-2024 AMPHETAMINES Negative Normal <1000 ng/mL [facility] Comment on above: Performed By: #### L 501.9100, L505.5000 ####[facility] [address] [place], [address] BARBITIURATES Negative Normal < 200 ng/mL [facility] Comment on above: Performed By: #### L 501.9100, L505.5000 ####[facility] [address] [place], [address] BENZODIAZIPINE Negative Normal < 200 ng/mL [facility] Comment on above: Performed By: #### L 501.9100, L505.5000 ####[facility] [address] [place], [address] BUP Ur Drug Scr Negative Normal < 200 ng/mL [facility] Comment on above: Performed By: #### L 501.9100, L505.5000 ####[facility] [address] [place], [address] COCAINE Negative Normal < 300 ng/mL [facility] Comment on above: Performed By: #### L 501.9100, L505.5000 ####[facility] [address] [place], [address] Fentanyl Negative Normal [facility] Comment on above: Performed By: #### L 501.9100, L505.5000 ####[facility] [address] [place], [address] METHADONE Negative Normal < 300 ng/mL [facility] Comment on above: Performed By: #### L 501.9100, L505.5000 ####[facility] [address] [place], [address] OPIATES Negative Normal < 300 ng/mL [facility] Comment on above: Performed By: #### L 501.9100, L505.5000 ####[facility] [address] [place], [address] OXYCODONE Negative Normal < 100 ng/mL [facility] Comment on above: Performed By: #### L 501.9100, L505.5000 ####[facility] [address] [place], [address] PCP Negative Normal < 25 ng/mL [facility] Comment on above: Performed By: #### L 501.9100, L505.5000 ####[facility] [address] [place], [address] THC Negative Normal < 50 ng/mL [facility] Comment on above: Performed By: #### L 501.9100, L505.5000 ####[facility] [address] [place], [place], [id number] Absolute lymphocyte countOrd ered By: Layla Craig on 08-31-2024 Lymphocytes Auto (Unsp spec) [#/Vol] 1.52 10*3/uL 0.83-4.51 [facility] Ammoniaon 08-31-2024 Ammonia (P) [Moles/Vol] 19.3 umol/L Normal 11-51 [facility] Comment on above: Performed By: #### L 100.0100, L503.5510, L500.2500, L500.3400 ####[facility] [address] [place], [place], [address] Amphetamine detection with 1 000 ng/mL as cutoffOrdered By: Juan José Thorpe on 08-31-2024 Amphetamines Screen method >1000 ng/mL Ql (U) Negative < 200 ng/mL [facility] Anion gap in Serum or Plasma Ordered By: Layla Craig on 08-31-2024 Anion gap [Moles/Vol] 14 mmol/L 5- [facility] Automated lymphocyte count a s percentage of total leukocytesOrdered By: Layla Craig on 08-31-2024 Lymphocytes/100 WBC Auto (Unsp spec) 22.0 % - [facility] BUN/creatinine ratioOrdered By: Layla Craig on 08-31-2024 Urea nitrogen/Creatinine [Mass ratio] 27.1 mg/mg High - [facility] Basic Metabolic Profile (BMP )on 08-31-2024 BUN/CRE 31.1 RATIO High - [facility] Comment on above: Performed By: #### L 100.0100, L503.5510, L500.2500, L500.3400 ####[facility] [address] [place], [place], [id number] Calcium [Mass/Vol] 9.9 mg/dL Normal 7.6-11.[address] [facility] Comment on above: Performed By: #### L 100.0100, L503.5510, L500.2500, L500.3400 ####[facility] [address] [place], [address] Chloride [Moles/Vol] 97 mmol/L Low 98-108 [facility] Comment on above: Performed By: #### L 100.0100, L503.5510, L500.2500, L500.3400 ####[facility] [address] [place], [address] CO2 [Moles/Vol] 31.0 mmol/L Normal 21.0-32.0 [facility] Comment on above: Performed By: #### L 100.0100, L503.5510, L500.2500, L500.3400 ####[facility] [address] [place], [address] Creatinine [Mass/Vol] 1.06 mg/dL Normal 0.70-1.20 [facility] Comment on above: Performed By: #### L 100.0100, L503.5510, L500.2500, L500.3400 ####[facility] [address] [place], [address] ECRCL 33.21 ml/min Low 50-250 [facility] Comment on above: Performed By: #### L 100.0100, L503.5510, L500.2500, L500.3400 ####[facility] [address] [place], [address] GAP 11 Normal 5-15 [facility] Comment on above: Performed By: #### L 100.0100, L503.5510, L500.2500, L500.3400 ####[facility] [address] [place], [address] GFR/1.73 sq M.predicted among non-blacks MDRD (S/P/Bld) [Vol rate/Area] 51 mL/min/{1.73_m2} Low >60 [facility] Comment on above: Result Comment: mL/m in/1.73m2 CKD-EPI Creatinine Equation (2020) Performed By: #### L 100.0100, L503.5510, L500.2500, L500.3400 ####[facility] [address] [place], [address] Glucose [Mass/Vol] 104 mg/dL High 70-[address] [facility] Comment on above: Performed By: #### L 100.0100, L503.5510, L500.2500, L500.3400 ####[facility] [address] [place], [address] Potassium [Moles/Vol] 4.0 mmol/L Normal 3.3-5.1 [facility] Comment on above: Performed By: #### L 100.0100, L503.5510, L500.2500, L500.3400 ####[facility] [address] [place], [address] Sodium [Moles/Vol] 140 mmol/L Normal 133-[address] [facility] Comment on above: Performed By: #### L 100.0100, L503.5510, L500.2500, L500.3400 ####[facility] [address] [place], [address] Urea nitrogen [Mass/Vol] 33 mg/dL High 4-19 [facility] Comment on above: Performed By: #### L 100.0100, L503.5510, L500.2500, L500.3400 ####[facility] [address] [place], [address] Basophil percentageOrdered B y: Layla Craig on 08-31-2024 Basophils/100 WBC (Bld) 0.9 % 0-1 [facility] Bilirubin Test strip Ql (U)O rdered By: Scooby Mobley on 08-31-2024 Bilirubin Ql (U) Negative Negative [facility] Bilirubin directOrdered By: Scooby Mobley on 08-31-2024 Bilirubin.direct [Mass/Vol] 0.13 mg/dL 0.00-0.30 [facility] Bilirubin, totalOrdered By: Layla Craig on 08-31-2024 Bilirubin [Mass/Vol] 0.40 mg/dL 0.00-1.30 [facility] Brain without Contraston Brain without Contrast Normal [facility] CBC W/Diff, Automatedon 08-11 Absolute Lymph 1.15 X10 3/uL Normal 0.83-4.51 [facility] Comment on above: Performed By: #### L 100.0100, L503.5510, L500.2500, L500.3400 ####[facility] [address] [place], [address] Absolute Neut 7.5 X10 3/uL Normal 2.0-7.7 [facility] Comment on above: Performed By: #### L 100.0100, L503.5510, L500.2500, L500.3400 ####[facility] [address] [place], [address] Basophils/100 WBC (Bld) 0.7 % Normal 0-1 [facility] Comment on above: Performed By: #### L 100.0100, L503.5510, L500.2500, L500.3400 ####[facility] [address] [place], [address] Eosinophils/100 WBC (Bld) 3.4 % Normal 0-5 [facility] Comment on above: Performed By: #### L 100.0100, L503.5510, L500.2500, L500.3400 ####[facility] [address] [place], [address] Erythrocyte distribution width (RBC) [Ratio] 13.1 % Normal 11.6-14.6 [facility] Comment on above: Performed By: #### L 100.0100, L503.5510, L500.2500, L500.3400 ####[facility] [address] [place], [address] Hematocrit (Bld) [Volume fraction] 32.6 % Low 37-47 [facility] Comment on above: Performed By: #### L 100.0100, L503.5510, L500.2500, L500.3400 ####[facility] [address] [place], [address] Hemoglobin (Bld) [Mass/Vol] 10.4 g/dL Low 12.0-15.0 [facility] Comment on above: Performed By: #### L 100.0100, L503.5510, L500.2500, L500.3400 ####[facility] [address] [place], [address] IG% 0.600 Normal 0.0-0.9 [facility] Comment on above: Result Comment: IG% - Immature Granulocytes (promyelocytes, myelocytes andmetamyelocytes) > 1% indicates that a LEFT SHIFT is Present. Performed By: #### L 100.0100, L503.5510, L500.2500, L500.3400 ####[facility] [address] [place], [address] Lymphocytes/100 WBC (Bld) 11.7 % Low 19-41 [facility] Comment on above: Performed By: #### L 100.0100, L503.5510, L500.2500, L500.3400 ####[facility] [address] [place], [address] MCH (RBC) [Entitic mass] 29.5 pg Normal 27.0-32.0 [facility] Comment on above: Performed By: #### L 100.0100, L503.5510, L500.2500, L500.3400 ####[facility] [address] [place], [address] MCHC (RBC) [Mass/Vol] 31.9 g/dL Low 32-36 [facility] Comment on above: Performed By: #### L 100.0100, L503.5510, L500.2500, L500.3400 ####[facility] [address] [place], [address] MCV (RBC) [Entitic vol] 92.6 fL Normal 81-99 [facility] Comment on above: Performed By: #### L 100.0100, L503.5510, L500.2500, L500.3400 ####[facility] [address] [place], [address] Monocytes/100 WBC (Bld) 7.9 % Normal 0-10 [facility] Comment on above: Performed By: #### L 100.0100, L503.5510, L500.2500, L500.3400 ####[facility] [address] [place], [address] Neutrophils/100 WBC (Bld) 75.7 % High 47-70 [facility] Comment on above: Performed By: #### L 100.0100, L503.5510, L500.2500, L500.3400 ####[facility] [address] [place], [address] Nucleated RBC (Bld) [#/Vol] 0 10*3/uL Normal 0-5 [facility] Comment on above: Performed By: #### L 100.0100, L503.5510, L500.2500, L500.3400 ####[facility] [address] [place], [address] Platelet mean volume (Bld) [Entitic vol] 9.7 fL Normal 6.2-12.0 [facility] Comment on above: Performed By: #### L 100.0100, L503.5510, L500.2500, L500.3400 ####[facility] [address] [place], [address] Platelets (Bld) [#/Vol] 320 10*3/uL Normal 150-450 [facility] Comment on above: Performed By: #### L 100.0100, L503.5510, L500.2500, L500.3400 ####[facility] [address] [place], [address] RBC (Bld) [#/Vol] 3.52 10*6/uL Low 4.2-5.4 [facility] Comment on above: Performed By: #### L 100.0100, L503.5510, L500.2500, L500.3400 ####[facility] [address] [place], [address] RDW SD 44.3 fl High 35.1-43.9 [facility] Comment on above: Performed By: #### L 100.0100, L503.5510, L500.2500, L500.3400 ####[facility] [address] [place], [address] WBC (Bld) [#/Vol] 9.9 10*3/uL Normal 4.4-11.[address] [facility] Comment on above: Performed By: #### L 100.0100, L503.5510, L500.2500, L500.3400 ####[facility] [address] [place], [address] Absolute Lymph 1.52 X10 3/uL Normal 0.83-4.51 [facility] Comment on above: Performed By: #### L 100.0100, L500.4050, L500.4100 ####[facility] [address] [place], [address] Absolute Neut 4.5 X10 3/uL Normal 2.0-7.7 [facility] Comment on above: Performed By: #### L 100.0100, L500.4050, L500.4100 ####[facility] [address] [place], [address] Basophils/100 WBC (Bld) 0.9 % Normal 0-1 [facility] Comment on above: Performed By: #### L 100.0100, L500.4050, L500.4100 ####[facility] [address] [place], [address] Eosinophils/100 WBC (Bld) 2.5 % Normal 0-5 [facility] Comment on above: Performed By: #### L 100.0100, L500.4050, L500.4100 ####[facility] [address] [place], [address] Erythrocyte distribution width (RBC) [Ratio] 13.1 % Normal 11.6-14.6 [facility] Comment on above: Performed By: #### L 100.0100, L500.4050, L500.4100 ####[facility] [address] [place], [address] Hematocrit (Bld) [Volume fraction] 32.2 % Low 37-47 [facility] Comment on above: Performed By: #### L 100.0100, L500.4050, L500.4100 ####[facility] [address] [place], [address] Hemoglobin (Bld) [Mass/Vol] 10.3 g/dL Low 12.0-15.0 [facility] Comment on above: Performed By: #### L 100.0100, L500.4050, L500.4100 ####[facility] [address] [place], [address] IG% 0.400 Normal 0.0-0.9 [facility] Comment on above: Result Comment: IG% - Immature Granulocytes (promyelocytes, myelocytes andmetamyelocytes) > 1% indicates that a LEFT SHIFT is Present. Performed By: #### L 100.0100, L500.4050, L500.4100 ####[facility] [address] [place], [address] Lymphocytes/100 WBC (Bld) 22.0 % Normal 19-41 [facility] Comment on above: Performed By: #### L 100.0100, L500.4050, L500.4100 ####[facility] [address] [place], [address] MCH (RBC) [Entitic mass] 29.9 pg Normal 27.0-32.0 [facility] Comment on above: Performed By: #### L 100.0100, L500.4050, L500.4100 ####[facility] [address] [place], [address] MCHC (RBC) [Mass/Vol] 32.0 g/dL Normal 32-36 [facility] Comment on above: Performed By: #### L 100.0100, L500.4050, L500.4100 ####[facility] [address] [place], [address] MCV (RBC) [Entitic vol] 93.3 fL Normal 81-99 [facility] Comment on above: Performed By: #### L 100.0100, L500.4050, L500.4100 ####[facility] [address] [place], [address] Monocytes/100 WBC (Bld) 9.4 % Normal 0-10 [facility] Comment on above: Performed By: #### L 100.0100, L500.4050, L500.4100 ####[facility] [address] [place], [address] Neutrophils/100 WBC (Bld) 64.8 % Normal 47-70 [facility] Comment on above: Performed By: #### L 100.0100, L500.4050, L500.4100 ####[facility] [address] [place], [address] Nucleated RBC (Bld) [#/Vol] 0 10*3/uL Normal 0-5 [facility] Comment on above: Performed By: #### L 100.0100, L500.4050, L500.4100 ####[facility] [address] [place], [address] Platelet mean volume (Bld) [Entitic vol] 9.6 fL Normal 6.2-12.0 [facility] Comment on above: Performed By: #### L 100.0100, L500.4050, L500.4100 ####[facility] [address] [place], [address] Platelets (Bld) [#/Vol] 338 10*3/uL Normal 150-450 [facility] Comment on above: Performed By: #### L 100.0100, L500.4050, L500.4100 ####[facility] [address] [place], [address] RBC (Bld) [#/Vol] 3.45 10*6/uL Low 4.2-5.4 [facility] Comment on above: Performed By: #### L 100.0100, L500.4050, L500.4100 ####[facility] [address] [place], [address] RDW SD 44.6 fl High 35.1-43.9 [facility] Comment on above: Performed By: #### L 100.0100, L500.4050, L500.4100 ####[facility] [address] [place], [address] WBC (Bld) [#/Vol] 6.9 10*3/uL Normal 4.4-11.[address] [facility] Comment on above: Performed By: #### L 100.0100, L500.4050, L500.4100 ####[facility] [address] [place], [address] Calculated very low density lipoprotein (VLDL) cholesterol measurementOrdered By: Layla Craig on 08-31-2024 Calculated very low density lipoprotein (VLDL) cholesterol measurement 13 mg/dL 5-40 [facility] Carbon dioxide, total [Moles /volume] in Central venous bloodOrdered By: Layla Craig on 08-31-2024 CO2 [Moles/Vol] 27.1 mmol/L 21.0-32.0 [facility] Chloride assayOrdered By: Rm Craig on 08-31-2024 Chloride [Moles/Vol] 94 mmol/L Low 98-108 [facility] Comprehensive Metabolic Prof ilon 08-31-2024 Albumin [Mass/Vol] 3.6 g/dL Normal 3.4-4.[address] [facility] Comment on above: Order Comment: Comme nts: NPO at [place] prior to lipid panel Performed By: #### L 100.0100, L500.4050, L500.4100 ####[facility] [address] [place], [address] Albumin/Globulin [Mass ratio] 1.2 {ratio} Normal 0.9-2.4 [facility] Comment on above: Order Comment: Comme nts: NPO at [place] prior to lipid panel Performed By: #### L 100.0100, L500.4050, L500.4100 ####[facility] [address] [place], [address] ALK PHOS 69 U/L Normal 35-104 [facility] Comment on above: Order Comment: Comme nts: NPO at [place] prior to lipid panel Performed By: #### L 100.0100, L500.4050, L500.4100 ####[facility] [address] [place], [address] ALT [Catalytic activity/Vol] 5 U/L Normal <=34 [facility] Comment on above: Order Comment: Comme nts: NPO at [place] prior to lipid panel Performed By: #### L 100.0100, L500.4050, L500.4100 ####[facility] [address] [place], [address] AST [Catalytic activity/Vol] 24 U/L Normal <=31 [facility] Comment on above: Order Comment: Comme nts: NPO at [place] prior to lipid panel Performed By: #### L 100.0100, L500.4050, L500.4100 ####[facility] [address] [place], [address] Bilirubin [Mass/Vol] 0.40 mg/dL Normal 0.00-1.30 [facility] Comment on above: Order Comment: Comme nts: NPO at [place] prior to lipid panel Performed By: #### L 100.0100, L500.4050, L500.4100 ####[facility] [address] [place], [address] BUN/CRE 27.1 RATIO High 10-20 [facility] Comment on above: Order Comment: Comme nts: NPO at [place] prior to lipid panel Performed By: #### L 100.0100, L500.4050, L500.4100 ####[facility] [address] [place], [address] Calcium [Mass/Vol] 10.0 mg/dL Normal 7.6-11.[address] [facility] Comment on above: Order Comment: Comme nts: NPO at [place] prior to lipid panel Performed By: #### L 100.0100, L500.4050, L500.4100 ####[facility] [address] [place], [address] Chloride [Moles/Vol] 94 mmol/L Low 98-108 [facility] Comment on above: Order Comment: Comme nts: NPO at [place] prior to lipid panel Performed By: #### L 100.0100, L500.4050, L500.4100 ####[facility] [address] [place], [address] CO2 [Moles/Vol] 27.1 mmol/L Normal 21.0-32.0 [facility] Comment on above: Order Comment: Comme nts: NPO at [place] prior to lipid panel Performed By: #### L 100.0100, L500.4050, L500.4100 ####[facility] [address] [place], [address] Creatinine [Mass/Vol] 0.94 mg/dL Normal 0.70-1.20 [facility] Comment on above: Order Comment: Comme nts: NPO at [place] prior to lipid panel Performed By: #### L 100.0100, L500.4050, L500.4100 ####[facility] [address] [place], [address] ECRCL 37.00 ml/min Low 50-250 [facility] Comment on above: Order Comment: Comme nts: NPO at [place] prior to lipid panel Performed By: #### L 100.0100, L500.4050, L500.4100 ####[facility] [address] [place], [address] GAP 14 Normal 5-15 [facility] Comment on above: Order Comment: Comme nts: NPO at [place] prior to lipid panel Performed By: #### L 100.0100, L500.4050, L500.4100 ####[facility] [address] [place], [address] GFR/1.73 sq M.predicted among non-blacks MDRD (S/P/Bld) [Vol rate/Area] 59 mL/min/{1.73_m2} Low >60 [facility] Comment on above: Order Comment: Comme nts: NPO at [place] prior to lipid panel Result Comment: mL/m in/1.73m2 CKD-EPI Creatinine Equation (2020) Performed By: #### L 100.0100, L500.4050, L500.4100 ####[facility] [address] [place], [address] Globulin (S) [Mass/Vol] 2.9 g/dL Normal 2.2-4.2 [facility] Comment on above: Order Comment: Comme nts: NPO at [place] prior to lipid panel Performed By: #### L 100.0100, L500.4050, L500.4100 ####[facility] [address] [place], [address] Glucose [Mass/Vol] 102 mg/dL High 70-[address] [facility] Comment on above: Order Comment: Comme nts: NPO at [place] prior to lipid panel Performed By: #### L 100.0100, L500.4050, L500.4100 ####[facility] [address] [place], [address] Potassium [Moles/Vol] 3.6 mmol/L Normal 3.3-5.1 [facility] Comment on above: Order Comment: Comme nts: NPO at [place] prior to lipid panel Performed By: #### L 100.0100, L500.4050, L500.4100 ####[facility] [address] [place], [address] Sodium [Moles/Vol] 135 mmol/L Normal 133-[address] [facility] Comment on above: Order Comment: Comme nts: NPO at [place] prior to lipid panel Performed By: #### L 100.0100, L500.4050, L500.4100 ####[facility] [address] [place], [address] T PROT 6.5 g/dL Normal 5.9-8.4 [facility] Comment on above: Order Comment: Comme nts: NPO at [place] prior to lipid panel Performed By: #### L 100.0100, L500.4050, L500.4100 ####[facility] [address] [place], [address] Urea nitrogen [Mass/Vol] 25 mg/dL High 4-19 [facility] Comment on above: Order Comment: Comme nts: NPO at [place] prior to lipid panel Performed By: #### L 100.0100, L500.4050, L500.4100 ####[facility] [address] [place], [place], [address] Discharge Instructionon 08-11 Discharge Instruction Normal [facility] Emergency Department Summary on 08-31-2024 Emergency Department Summary Normal [facility] Eosinophil percentageOrdered By: Layla Craig on 08-31-2024 Eosinophils/100 WBC (Bld) 2.5 % 0-5 [facility] Erythrocyte distribution wid th ratioOrdered By: Layla Craig on 08-31-2024 Erythrocyte distribution width (RBC) [Ratio] 13.1 % 11.6-14.6 [facility] Erythrocyte distribution wid th standard deviationOrdered By: Layla Craig on 08-31-2024 Erythrocyte distribution width (RBC) [Ratio] 44.6 fl High 35.1-43.9 [facility] Glomerular filtration rate ( GFR) estimation/1.73 sq m using serum, plasma, or whole bOrdered By: Layla Craig on 08-31-2024 GFR/1.73 sq M.predicted among non-blacks MDRD (S/P/Bld) [Vol rate/Area] 59 mL/min/{1.73_m2} Low >60 [facility] Hematocrit Auto (Bld) [Volum e fraction]Ordered By: Layla Craig on 08-31-2024 Hematocrit (Bld) [Volume fraction] 32.2 % Low 37-47 [facility] Hemoglobin measurementOrdere d By: Layla Craig on 08-31-2024 Hemoglobin (Bld) [Mass/Vol] 10.3 g/dL Low 12.0-15.0 [facility] Immature granulocytes/100 WB C Auto (Bld)Ordered By: Layla Craig on 08-31-2024 Immature granulocytes/100 WBC (Bld) 0.400 % 0.0-0.9 [facility] Ketones Test strip Ql (U)Ord ered By: Scooby Adrianosharon on 08-31-2024 Ketones Ql (U) Negative Negative [facility] LDL calc ser/plasOrdered By: Layla Craig on 08-31-2024 Cholesterol in LDL [Mass/Vol] 119 mg/dL [facility] Lipid Profileon 08-31-2024 CHOL:HDL 2.46 Normal [facility] Comment on above: Order Comment: Comme nts: NPO at [place] prior to lipid panel Performed By: #### L 100.0100, L500.4050, L500.4100 ####[facility] [address] [place], [address] Cholesterol [Mass/Vol] 222 mg/dL High <=200 [facility] Comment on above: Order Comment: Comme nts: NPO at [place] prior to lipid panel Result Comment: Chol esterol level, Desirable <200 mg/dLBorderline high cholesterol 200-239 mg/dLHigh cholesterol >=240 mg/dLRecommendations of the NCEP Adult Treatment Panel for thefollowing risk-cutoff thresholds for the [place] Americanpopulation. Performed By: #### L 100.0100, L500.4050, L500.4100 ####[facility] [address] [place], [address] Cholesterol in HDL [Mass/Vol] 90 mg/dL Normal [facility] Comment on above: Order Comment: Comme nts: NPO at [place] prior to lipid panel Result Comment: Arely onal Cholesterol Education Program (NCEP) guidelines:<40 mg/dL: Low HDL-cholesterol (major risk factor for CHD)>= 60 mg/dL: High HDL-cholesterol (negative risk factor forCHD)HDL-cholesterol is affected by a number of factors, e.g.smoking, exercise, hormones, sex and age. Performed By: #### L 100.0100, L500.4050, L500.4100 ####[facility] [address] [place], [address] Cholesterol in LDL [Mass/Vol] 119 mg/dL Normal [facility] Comment on above: Order Comment: Comme nts: NPO at [place] prior to lipid panel Result Comment: Bord abqdgx=976-056 mg/dL Higher Cnjy=411 mg/dL or greater Performed By: #### L 100.0100, L500.4050, L500.4100 ####[facility] [address] [place], [address] Cholesterol in VLDL [Mass/Vol] 13 mg/dL Normal 5-40 [facility] Comment on above: Order Comment: Comme nts: NPO at [place] prior to lipid panel Performed By: #### L 100.0100, L500.4050, L500.4100 ####[facility] [address] [place], [address] Triglyceride [Mass/Vol] 66 mg/dL Normal [facility] Comment on above: Order Comment: Comme nts: NPO at [place] prior to lipid panel Result Comment: The drugs N-Acetylcysteine and Metamizole may falselydepress this assay.Normal range: <150 mg/dLBorderline High: 150-199 mg/dLHigh: 200-499 mg/dLVery High: >500 mg/dL Performed By: #### L 100.0100, L500.4050, L500.4100 ####[facility] [address] [place], [address] Liver Profileon 08-31-2024 Albumin [Mass/Vol] 3.7 g/dL Normal 3.4-4.[address] [facility] Comment on above: Performed By: #### L 100.0100, L503.5510, L500.2500, L500.3400 ####[facility] [address] [place], [address] ALK PHOS 69 U/L Normal 35-104 [facility] Comment on above: Performed By: #### L 100.0100, L503.5510, L500.2500, L500.3400 ####[facility] [address] [place], [address] ALT [Catalytic activity/Vol] 9 U/L Normal <=34 [facility] Comment on above: Performed By: #### L 100.0100, L503.5510, L500.2500, L500.3400 ####[facility] [address] [place], [address] AST [Catalytic activity/Vol] 26 U/L Normal <=31 [facility] Comment on above: Performed By: #### L 100.0100, L503.5510, L500.2500, L500.3400 ####[facility] [address] [place], [address] Bilirubin [Mass/Vol] 0.30 mg/dL Normal 0.00-1.30 [facility] Comment on above: Performed By: #### L 100.0100, L503.5510, L500.2500, L500.3400 ####[facility] [address] [place], [address] Bilirubin.direct [Mass/Vol] 0.13 mg/dL Normal 0.00-0.30 [facility] Comment on above: Performed By: #### L 100.0100, L503.5510, L500.2500, L500.3400 ####[facility] [address] [place], [address] Globulin (S) [Mass/Vol] 3.0 g/dL Normal 2.2-4.2 [facility] Comment on above: Performed By: #### L 100.0100, L503.5510, L500.2500, L500.3400 ####[facility] [address] [place], [address] T PROT 6.6 g/dL Normal 5.9-8.4 [facility] Comment on above: Performed By: #### L 100.0100, L503.5521, L500.4687, L500.9314 ####[facility] [address] [place], [address] MCV (mean corpuscular volume ) determinationOrdered By: Layla Craig on 08-31-2024 MCV (RBC) [Entitic vol] 93.3 fL 81-99 [facility] MR/CON.PCM.NEon 08-31-2024 MR/CON.PCM.NE Normal [facility] Mean corpuscular hemoglobin (MCH) determinationOrdered By: Layla Craig on 08-31-2024 MCH (RBC) [Entitic mass] 29.9 pg 27.0-32.0 [facility] Monocyte percentageOrdered B y: Layla Craig on 08-31-2024 Monocytes/100 WBC (Bld) 9.4 % 0-10 [facility] Mucus LM Ql (Urine sed)Order ed By: Scooby Mobley on 08-31-2024 Mucus Ql (Urine sed) 0 SEEN /hpf [facility] Neutrophil percentageOrdered By: Layla Craig on 08-31-2024 Neutrophils/100 WBC (Bld) 64.8 % 47-70 [facility] Nitrite Test strip Ql (U)Ord ered By: Scooby Mobley on 08-31-2024 Nitrite Ql (U) Negative Negative [facility] No Panel InformationOrdered By: Juan José Thorpe on 08-31-2024 Negative < 200 ng/mL [facility] No Panel InformationOrdered By: Layla Craig on 08-31-2024 24 U/L <32 [facility] Platelet countOrdered By: Rm Craig on 08-31-2024 Platelets (Bld) [#/Vol] 338 10*3/uL 150-450 [facility] Potassium measurement (mass/ volume)Ordered By: Layla Craig on 08-31-2024 Potassium (Unsp spec) [Mass/Vol] 3.6 mmol/L 3.3-5.1 [facility] Protein Test strip Ql (U)Ord ered By: Scooby Mobley on 08-31-2024 Protein Ql (U) 30 mg/dl High Negative [facility] RBC Auto (Bld) [#/Vol]Ordere d By: Layla Craig on 08-31-2024 RBC (Bld) [#/Vol] 3.45 10*6/uL Low 4.2-5.4 [facility] Screening urine fentanyl fran surementOrdered By: Juan José Thorpe on 08-31-2024 fentaNYL Screen Ql (U) Negative [facility] Serum creatinine measurement (mass/volume)Ordered By: Layla Craig on 08-31-2024 Creatinine [Mass/Vol] 0.94 mg/dL 0.70-1.20 [facility] Serum globulin measurementOr dered By: Layla Craig on 08-31-2024 Globulin (S) [Mass/Vol] 2.9 g/dL 2.2-4.2 [facility] Serum glucose measurement (m ass/volume)Ordered By: Layla Craig on 08-31-2024 Glucose [Mass/Vol] 102 mg/dL High 70-[address] [facility] Serum or plasma alanine clifton otransferase (ALT) measurementOrdered By: Layla Craig on 08-31-2024 ALT [Catalytic activity/Vol] 5 U/L <35 [facility] Serum or plasma albumin manuel urement (mass/volume)Ordered By: Layla Craig on 08-31-2024 Albumin [Mass/Vol] 3.6 g/dL 3.4-4.[address] [facility] Serum or plasma albumin/glob ulin mass ratioOrdered By: Layla Craig on 08-31-2024 Albumin/Globulin [Mass ratio] 1.2 {ratio} 0.9-2.4 [facility] Serum or plasma alkaline bibi sphatase measurementOrdered By: Layla Craig on 08-31-2024 ALP [Catalytic activity/Vol] 69 U/L 35-104 [facility] Serum or plasma calcium manuel urement (mass/volume)Ordered By: Layla Craig on 08-31-2024 Calcium [Mass/Vol] 10.0 mg/dL 7.6-11.[address] [facility] Serum or plasma cholesterol in HDL measurement (mass/volume)Ordered By: Layla Craig on 08-31-2024 Cholesterol in HDL [Mass/Vol] 90 mg/dL >40 [facility] Serum or plasma cholesterol measurement (mass/volume)Ordered By: Layla Craig on 08-31-2024 Cholesterol [Mass/Vol] 222 mg/dL High <201 [facility] Serum or plasma ethanol manuel urement (mass/volume)Ordered By: Juan José Thorpe on 08-31-2024 Ethanol [Mass/Vol] mg/dL <10.[address] [facility] Serum or plasma urea nitroge n measurement (mass/volume)Ordered By: Layla Craig on 08-31-2024 Urea nitrogen [Mass/Vol] 25 mg/dL High 4-19 [facility] Sodium levelOrdered By: Bharathi Craig on 08-31-2024 Sodium [Moles/Vol] 135 mmol/L 133-[address] [facility] Squamous epithelial cells de tection in urine sediment by light microscopyOrdered By: Scooby Mobley on 08-31-2024 Epithelial cells.squamous LM Ql (Urine sed) 0 SEEN /hpf - [facility] Total proteinOrdered By: Maykel Craig on 08-31-2024 Protein [Mass/Vol] 6.5 g/dL 5.9-8.[address] [facility] Urinalysis, Completeon 08-31 BACTERIA 0 SEEN Normal None Seen [facility] Comment on above: Order Comment: MARV COKEROR TO SPECIFY Performed By: #### L 400.0001 ####[facility] [address] [facility] [place], [address] EPI,SQUAMOUS 0 SEEN Normal - [facility] Comment on above: Order Comment: MARV CTOR TO SPECIFY Performed By: #### L 400.0001 ####[facility] [address] [place], [address] Mucus Ql (Urine sed) 0 SEEN Normal [facility] Comment on above: Order Comment: MARV CTOR TO SPECIFY Performed By: #### L 400.0001 ####[facility] [address] [place], [address] RBC 0 SEEN Normal 0-5 [facility] Comment on above: Order Comment: MARV CTOR TO SPECIFY Performed By: #### L 400.0001 ####[facility] [address] [place], [address] WBC 0 SEEN Normal 0-5 [facility] Comment on above: Order Comment: COLLE CTOR TO SPECIFY Performed By: #### L 400.0001 ####[facility] [address] [place], [address] Urine clarityOrdered By: Ronald Mobley on 08-31-2024 Clarity (U) Clear Clear [facility] Urine color determinationOrd ered By: Scooby Mobley on 08-31-2024 Color (U) Yellow Yellow [facility] Urine glucose detectionOrder ed By: Scooby Mobley on 08-31-2024 Glucose Ql (U) Normal mg/dl Normal [facility] Urine leukocyte esterase det ection by dipstickOrdered By: Scooby Mobley on 08-31-2024 Leukocyte esterase Test strip Ql (U) Negative Negative [facility] Urine pHOrdered By: Scooby naylor on 08-31-2024 pH (U) 7.0 [pH] 5.0 - 8.0 [facility] Urine phencyclidine (PCP) de tectionOrdered By: Juan José Thorpe on 08-31-2024 Phencyclidine Ql (U) Negative < 25 ng/mL [facility] Urine sediment bacteria coun t by microscopy (number/high power field)Ordered By: Scooby Mobley on 08-31-2024 Bacteria LM.HPF (Urine sed) [#/Area] 0 /[HPF] None Seen [facility] Urine specific gravity measu rementOrdered By: Scooby Mobley on 08-31-2024 Specific gravity (U) [Rel density] 1.010 1.002-1.030 [facility] Urine urobilinogen measureme ntOrdered By: Scooby Mobley on 08-31-2024 Urobilinogen Ql (U) Normal mg/dl Normal [facility] Venous blood ammonia measure mentOrdered By: Scooby Mobley on 08-31-2024 Ammonia (P) [Moles/Vol] 19.3 umol/L 11-51 [facility] White blood cell (WBC) count Ordered By: Layla Craig on 08-31-2024 WBC (Bld) [#/Vol] 6.9 10*3/uL 4.4-11.[address] [facility] White blood cell countOrdere d By: Scooby Adrianosharon on 08-31-2024 White blood cell count 0 SEEN /hpf 0-5 [facility] 12 Lead EKGon 08-30-2024 12 Lead EKG Normal [facility] Absolute neutrophil countOrd ered By: Ayaz Hinton on 08-30-2024 Absolute neutrophil count 5.3 X10^3/uL 2.0-7.7 [facility] Activated partial thrombopla stin time (aPTT) in platelet poor plasma by coagulation aOrdered By: Ayaz Hinton on 08-30-2024 aPTT Coag (PPP) [Time] 32.4 s 24.1-36.2 [facility] Ammoniaon 08-30-2024 Ammonia (P) [Moles/Vol] 14.8 umol/L Normal 11-51 [facility] Comment on above: Performed By: #### L 503.5510, L501.9520, L503.0106 ####[facility] [address] [place], [place], [id number] Anion gap [Moles/Vol]Ordered By: Ayaz Hinton on 08-30-2024 Anion gap in Serum or Plasma 14 5-15 [facility] Assessment of wrist artery p atency prior to arterial punctureOrdered By: Layla Craig on 08-30-2024 Arterial patency Wrist artery --pre arterial puncture Positive [facility] BUN/creatinine ratioOrdered By: Ayaz Hinton on 08-30-2024 BUN/creatinine ratio 28.8 RATIO High 10-20 [facility] Basic Metabolic Profile (BMP )on 08-30-2024 BUN/CRE 28.8 RATIO High 10-20 [facility] Comment on above: Performed By: #### L 300.3900, L100.0100, L500.2500, L501.4021 ####[facility] [address] [place], [place], [id number] Calcium [Mass/Vol] 9.9 mg/dL Normal 7.6-11.[address] [facility] Comment on above: Performed By: #### L 300.3900, L100.0100, L500.2500, L501.4021 ####[facility] [address] [place], [address] Chloride [Moles/Vol] 95 mmol/L Low 98-108 [facility] Comment on above: Performed By: #### L 300.3900, L100.0100, L500.2500, L501.4021 ####[facility] [address] [place], [address] CO2 [Moles/Vol] 28.0 mmol/L Normal 21.0-32.0 [facility] Comment on above: Performed By: #### L 300.3900, L100.0100, L500.2500, L501.4021 ####[facility] [address] [place], [address] Creatinine [Mass/Vol] 1.06 mg/dL Normal 0.70-1.20 [facility] Comment on above: Performed By: #### L 300.3900, L100.0100, L500.2500, L501.4021 ####[facility] [address] [place], [address] ECRCL 32.40 ml/min Low 50-250 [facility] Comment on above: Performed By: #### L 300.3900, L100.0100, L500.2500, L501.4021 ####[facility] [address] [place], [address] GAP 14 Normal 5-15 [facility] Comment on above: Performed By: #### L 300.3900, L100.0100, L500.2500, L501.4021 ####[facility] [address] [place], [address] GFR/1.73 sq M.predicted among non-blacks MDRD (S/P/Bld) [Vol rate/Area] 51 mL/min/{1.73_m2} Low >60 [facility] Comment on above: Result Comment: mL/m in/1.73m2 CKD-EPI Creatinine Equation (2020) Performed By: #### L 300.3900, L100.0100, L500.2500, L501.4021 ####[facility] [address] [place], [address] Glucose [Mass/Vol] 123 mg/dL High 70-[address] [facility] Comment on above: Performed By: #### L 300.3900, L100.0100, L500.2500, L501.4021 ####[facility] [address] [place], [address] Potassium [Moles/Vol] 4.2 mmol/L Normal 3.3-5.1 [facility] Comment on above: Result Comment: Hemo lysis present, Results??could be affected.?? Performed By: #### L 300.3900, L100.0100, L500.2500, L501.4021 ####[facility] [address] [place], [address] Sodium [Moles/Vol] 136 mmol/L Normal 133-[address] [facility] Comment on above: Performed By: #### L 300.3900, L100.0100, L500.2500, L501.4021 ####[facility] [address] [place], [address] Urea nitrogen [Mass/Vol] 31 mg/dL High 4-19 [facility] Comment on above: Performed By: #### L 300.3900, L100.0100, L500.2500, L501.4021 ####[facility] [address] [place], [address] Basophil percentageOrdered B y: Ayaz Hinton on 08-30-2024 Basophil percentage 0.9 % 0-1 [facility] Bilirubin Test strip Ql (U)O rdered By: Ayaz Hinton on 08-30-2024 Bilirubin Ql (U) Negative Negative [facility] Blood Gases by CPSon 025 TERESA TEST Positive Normal [facility] Comment on above: Performed By: #### L 9000.0800 ####[facility] [address] [place], [address] Base excess Calc (Bld) [Moles/Vol] 12 mmol/L High -2 to +2 [facility] Comment on above: Performed By: #### L 9000.0800 ####[facility] [address] [place], [address] Blood Gas Type ART Normal [facility] Comment on above: Performed By: #### L 9000.0800 ####[facility] [address] [place], [address] CO2 [Moles/Vol] 37 mmol/L Normal [facility] Comment on above: Performed By: #### L 9000.0800 ####[facility] [address] [place], [address] FI02 21.0 Normal [facility] Comment on above: Performed By: #### L 9000.0800 ####[facility] [address] [place], [address] HCO3 (Bld) [Moles/Vol] 35.3 mmol/L High 22-26 [facility] Comment on above: Performed By: #### L 9000.0800 ####[facility] [address] [place], [address] Mode Not entered Normal [facility] Comment on above: Performed By: #### L 9000.0800 ####[facility] [address] [place], [address] O2 Delivery Dev Room Air Normal [facility] Comment on above: Performed By: #### L 9000.0800 ####[facility] [address] [place], [address] pCO2 45.8 mmHg High 35-45 [facility] Comment on above: Performed By: #### L 9000.0800 ####[facility] [address] [place], [address] pH (Bld) 7.50 [pH] High 7.35-7.45 [facility] Comment on above: Performed By: #### L 9000.0800 ####[facility] [address] [place], [address] PO2 64 mmHG Low 75-100 [facility] Comment on above: Performed By: #### L 9000.0800 ####[facility] [address] [place], [address] SITE R Radial Normal [facility] Comment on above: Performed By: #### L 9000.0800 ####[facility] [address], [address] SO2 93 Low 95-99 [facility] Comment on above: Performed By: #### L 9000.0800 ####[facility] [address] [place], [address] Blood base excess determinat ionOrdered By: Layla Craig on 08-30-2024 Base excess Calc (BldV) [Moles/Vol] 12 mmol/L High -2-2 [facility] Blood bicarbonate measuremen tOrdered By: Layla Craig on 08-30-2024 HCO3 (Bld) [Moles/Vol] 35.3 mmol/L High 22-26 [facility] CBC W/Diff, Automatedon 08-11 Absolute Lymph 1.38 X10 3/uL Normal 0.83-4.51 [facility] Comment on above: Performed By: #### L 300.3900, L100.0100, L500.2500, L501.4021 ####[facility] [address] [place], [address] Absolute Neut 5.3 X10 3/uL Normal 2.0-7.7 [facility] Comment on above: Performed By: #### L 300.3900, L100.0100, L500.2500, L501.4021 ####[facility] [address] [place], [address] Basophils/100 WBC (Bld) 0.9 % Normal 0-1 [facility] Comment on above: Performed By: #### L 300.3900, L100.0100, L500.2500, L501.4021 ####[facility] [address] [place], [address] Eosinophils/100 WBC (Bld) 1.9 % Normal 0-5 [facility] Comment on above: Performed By: #### L 300.3900, L100.0100, L500.2500, L501.4021 ####[facility] [address] [place], [address] Erythrocyte distribution width (RBC) [Ratio] 13.1 % Normal 11.6-14.6 [facility] Comment on above: Performed By: #### L 300.3900, L100.0100, L500.2500, L501.4021 ####[facility] [address] [place], [address] Hematocrit (Bld) [Volume fraction] 38.4 % Normal 37-47 [facility] Comment on above: Performed By: #### L 300.3900, L100.0100, L500.2500, L501.4021 ####[facility] [address] [place], [address] Hemoglobin (Bld) [Mass/Vol] 12.4 g/dL Normal 12.0-15.0 [facility] Comment on above: Performed By: #### L 300.3900, L100.0100, L500.2500, L501.4021 ####[facility] [address] [place], [address] IG% 0.500 Normal 0.0-0.9 [facility] Comment on above: Result Comment: IG% - Immature Granulocytes (promyelocytes, myelocytes andmetamyelocytes) > 1% indicates that a LEFT SHIFT is Present. Performed By: #### L 300.3900, L100.0100, L500.2500, L501.4021 ####[facility] [address] [place], [address] Lymphocytes/100 WBC (Bld) 18.4 % Low 19-41 [facility] Comment on above: Performed By: #### L 300.3900, L100.0100, L500.2500, L501.4021 ####[facility] [address] [place], [address] MCH (RBC) [Entitic mass] 30.0 pg Normal 27.0-32.0 [facility] Comment on above: Performed By: #### L 300.3900, L100.0100, L500.2500, L501.4021 ####[facility] [address] [place], [address] MCHC (RBC) [Mass/Vol] 32.3 g/dL Normal 32-36 [facility] Comment on above: Performed By: #### L 300.3900, L100.0100, L500.2500, L501.4021 ####[facility] [address] [place], [address] MCV (RBC) [Entitic vol] 92.8 fL Normal 81-99 [facility] Comment on above: Performed By: #### L 300.3900, L100.0100, L500.2500, L501.4021 ####[facility] [address] [place], [address] Monocytes/100 WBC (Bld) 8.2 % Normal 0-10 [facility] Comment on above: Performed By: #### L 300.3900, L100.0100, L500.2500, L501.4021 ####[facility] [address] [place], [address] Neutrophils/100 WBC (Bld) 70.1 % High 47-70 [facility] Comment on above: Performed By: #### L 300.3900, L100.0100, L500.2500, L501.4021 ####[facility] [address] [place], [address] Nucleated RBC (Bld) [#/Vol] 0 10*3/uL Normal 0-5 [facility] Comment on above: Performed By: #### L 300.3900, L100.0100, L500.2500, L501.4021 ####[facility] [address] [place], [address] Platelet mean volume (Bld) [Entitic vol] 9.6 fL Normal 6.2-12.0 [facility] Comment on above: Performed By: #### L 300.3900, L100.0100, L500.2500, L501.4021 ####[facility] [address] [place], [address] Platelets (Bld) [#/Vol] 337 10*3/uL Normal 150-450 [facility] Comment on above: Performed By: #### L 300.3900, L100.0100, L500.2500, L501.4021 ####[facility] [address] [place], [address] RBC (Bld) [#/Vol] 4.14 10*6/uL Low 4.2-5.4 [facility] Comment on above: Performed By: #### L 300.3900, L100.0100, L500.2500, L501.4021 ####[facility] [address] [place], [address] RDW SD 44.8 fl High 35.1-43.9 [facility] Comment on above: Performed By: #### L 300.3900, L100.0100, L500.2500, L501.4021 ####[facility] [address] [place], [address] WBC (Bld) [#/Vol] 7.5 10*3/uL Normal 4.4-11.[address] [facility] Comment on above: Performed By: #### L 300.3900, L100.0100, L500.2500, L501.4021 ####[facility] [address] [place], [address] CO2 (BldV) [Moles/Vol]Ordere d By: Layla Craig on 08-30-2024 CO2 [Moles/Vol] 31 mmol/L 23-33 [facility] Calcium [Mass/Vol]Ordered By : Ayaz Hinton on 08-30-2024 Serum or plasma calcium measurement (mass/volume) 9.9 mg/dL 7.6-11.0 [facility] Carbon dioxide, total [Moles /volume] in Central venous bloodOrdered By: Ayaz Hinton on 08-30-2024 Carbon dioxide, total [Moles/volume] in Central venous blood 28.0 mmol/L 21.0-32.0 [facility] Chest 1 Viewon 08-30-2024 Chest 1 View Normal [facility] Chloride assayOrdered By: Freddie Hinton on 08-30-2024 Chloride assay 95 mmol/L Low 98-108 [facility] Clarity (U)Ordered By: Dannie Hinton on 08-30-2024 Urine clarity Cloudy Clear [facility] Color (U)Ordered By: Ayaz Hinton on 08-30-2024 Urine color determination Yellow Yellow [facility] Creatinine [Mass/Vol]Ordered By: Ayaz Hinton on 08-30-2024 Serum creatinine measurement (mass/volume) 1.06 mg/dL 0.70-1.20 [facility] Echo Complete W/ Contraston 08-30-2024 Echo Complete W/ Contrast Normal [facility] Emergency Department Summary on 08-30-2024 Emergency Department Summary Normal [facility] Eosinophil percentageOrdered By: Ayaz Hinton on 08-30-2024 Eosinophil percentage 1.9 % 0-5 [facility] Erythrocyte distribution wid th (RBC) [Ratio]Ordered By: Ayaz Hinton on 08-30-2024 Erythrocyte distribution width ratio 13.1 % 11.6-14.6 [facility] Erythrocyte distribution width standard deviation 44.8 fl High 35.1-43.9 [facility] Estimation of creatinine mary ellen aranceOrdered By: Ayaz Hinton on 08-30-2024 Estimation of creatinine clearance 32.40 ml/min Low 50-250 [facility] GFR/1.73 sq M.predicted jane g non-blacks MDRD (S/P/Bld) [Vol rate/Area]Ordered By: Ayaz Hinton on 08-30-2024 Glomerular filtration rate (GFR) estimation/1.73 sq m using serum, plasma, or whole b 51 Low >60 [facility] Glucose [Mass/Vol]Ordered By : Ayaz Hinton on 08-30-2024 Serum glucose measurement (mass/volume) 123 mg/dL High 70-99 [facility] H AND P Exam - Hospitaliston 08-30-2024 H&P Exam - Hospitalist Normal [facility] HIP, UNI W/ Pelvis 2-3 Views on 08-30-2024 HIP, UNI W/ Pelvis 2-3 Views Normal [facility] Hematocrit Auto (Bld) [Volum e fraction]Ordered By: Ayaz Hinton on 08-30-2024 Automated blood hematocrit (percentage) 38.4 % 37-47 [facility] Hemoglobin measurementOrdere d By: Ayaz Hinton on 08-30-2024 Hemoglobin measurement 12.4 g/dL 12.0-15.0 [facility] Immature granulocytes/100 WB C Auto (Bld)Ordered By: Ayaz Hinton on 08-30-2024 Automated immature granulocyte percentage 0.500 % 0.0-0.9 [facility] International normalized rat io (INR) calculationOrdered By: Ayaz Hinton on 08-30-2024 International normalized ratio (INR) calculation 1.0 [facility] Ketones Test strip Ql (U)Ord ered By: Ayaz Hinton on 08-30-2024 Ketones Ql (U) Negative Negative [facility] Knee 1 or 2 Viewson 08-31-19 25 Knee 1 or 2 Views Normal [facility] L499.0042on 08-30-2024 Trop T High Sen 37 ng/L High <=14 [facility] Comment on above: Performed By: #### L 499.0042 ####[facility] [address] [place], [address] L499.0043on 08-30-2024 Trop T High Sen 38 ng/L High <=14 [facility] Comment on above: Performed By: #### L 499.0043 ####[facility] [address] [place], [address] L501.4021on 08-30-2024 Trop T High Sen 26 ng/L High <=14 [facility] Comment on above: Result Comment: Hemo lysis present, Results??could be affected.?? Performed By: #### L 300.3900, L100.0100, L500.2500, L501.4021 ####[facility] [address] [place], [address] Leukocyte esterase Test stri p Ql (U)Ordered By: Ayaz Hinton on 08-30-2024 Urine leukocyte esterase detection by dipstick 100 /ul High Negative [facility] Lymphocytes Auto (Unsp spec) [#/Vol]Ordered By: Ayaz Hinton on 08-30-2024 Absolute lymphocyte count 1.38 X10^3/uL 0.83-4.51 [facility] Lymphocytes/100 WBC Auto (Un sp spec)Ordered By: Ayaz Hinton on 08-30-2024 Automated lymphocyte count as percentage of total leukocytes 18.4 % Low 19-41 [facility] MCV (RBC) [Entitic vol]Order ed By: Ayaz Hinton on 08-30-2024 MCV (mean corpuscular volume) determination 92.8 fL 81-99 [facility] Mean corpuscular hemoglobin (MCH) determinationOrdered By: Ayaz Hinton on 08-30-2024 Mean corpuscular hemoglobin (MCH) determination 30.0 pg 27.0-32.0 [facility] Mean corpuscular hemoglobin concentration (MCHC) determinationOrdered By: Ayaz Hinton on 08-30-2024 Mean corpuscular hemoglobin concentration (MCHC) determination 32.3 g/dL 32-36 [facility] Mean platelet volume determi nationOrdered By: Ayaz Hinton on 08-30-2024 Mean platelet volume determination 9.6 fl 6.2-12.0 [facility] Measurement, pHOrdered By: Julien Craig on 08-30-2024 pH (Unsp spec) 7.50 [pH] High 7.35-7.45 [facility] Microscopic analysis of urin e for red blood cells (RBC)Ordered By: Ayaz Hinton on 08-30-2024 Microscopic analysis of urine for red blood cells (RBC) 0 SEEN /hpf 0-5 [facility] Monocyte percentageOrdered B y: Ayaz Hinton on 08-30-2024 Monocyte percentage 8.2 % 0-10 [facility] Mucus LM Ql (Urine sed)Order ed By: Ayaz Hinton on 08-30-2024 Mucus Ql (Urine sed) 1+ /hpf [facility] Neutrophil percentageOrdered By: Ayaz Hinton on 08-30-2024 Neutrophil percentage 70.1 % High 47-70 [facility] Nitrite Test strip Ql (U)Ord ered By: Ayaz Hinton on 08-30-2024 Nitrite Ql (U) Negative Negative [facility] No Panel InformationOrdered By: Layla Craig on 08-30-2024 ART [facility] R Radial [facility] Not entered [facility] Room Air [facility] 16:51:18 [facility] craig [facility] Yes [facility] Nucleated red blood cell per centageOrdered By: Ayaz Hinton on 08-30-2024 Nucleated red blood cell percentage 0 % 0-5 [facility] Partial Thromboplast Timeon 08-30-2024 aPTT Coag (Bld) [Time] 32.4 s Normal 24.1-36.2 [facility] Comment on above: Performed By: #### L 300.3900, L300.4310 ####[facility] [address] [place], [address] Platelet countOrdered By: Freddie Hinton on 08-30-2024 Platelet count 337 K/mm3 150-450 [facility] Potassium (Unsp spec) [Mass/ Vol]Ordered By: Ayaz Hinton on 08-30-2024 Potassium measurement (mass/volume) 4.2 mmol/L 3.3-5.1 [facility] Protein Test strip Ql (U)Ord ered By: Ayaz Hinton on 08-30-2024 Protein Ql (U) 30 mg/dl High Negative [facility] Urine protein assay by test strip, semi-quantitative 30 mg/dl High Negative [facility] Prothrombin Time w/INRon INR Coag (PPP) [Relative time] 1.0 {INR} Normal [facility] Comment on above: Performed By: #### L 300.3900, L300.4310 ####[facility] [address] [place], [address] PT Coag (PPP) [Time] 13.2 s Normal 11.7-14.9 [facility] Comment on above: Performed By: #### L 300.3900, L300.4310 ####[facility] [address] [place], [address] INR Normal [facility] Comment on above: Order Comment: ERNESTO Vivas PREVIOUS SPECIMEN REJECTED DUE TOCLOTTED. 08/30/24 Kathy Salas. Result Comment: Arash ellgerman via OM: Unable to obtain specimen Performed By: #### L 300.3900 ####[facility] [address] [place], [address] PROTIME Normal 11.7-14.9 [facility] Comment on above: Order Comment: ERNESTO Vivas PREVIOUS SPECIMEN REJECTED DUE TOCLOTTED. 08/30/24 1159 Rosy Salas. Result Comment: Canc elled via OM: Unable to obtain specimen Performed By: #### L 300.3900 ####[facility] [address] [place], [address] INR Normal [facility] Comment on above: Result Comment: This specimen has been REJECTED due to Laboratory criteria:Clotted.TAD has been notified of need of recollection.08/30/24 1159 Rosy Salas Performed By: #### L 300.3900, L100.0100, L500.2500, L501.4021 ####[facility] [address] [place], [address] PROTIME Normal 11.7-14.9 [facility] Comment on above: Result Comment: This specimen has been REJECTED due to Laboratory criteria:Clotted.TAD has been notified of need of recollection.08/30/24 1159 Rosy Salas Performed By: #### L 300.3900, L100.0100, L500.2500, L501.4021 ####[facility] [address] [place], [address] Prothrombin timeOrdered By: Ayaz Hinton on 08-30-2024 PT Coag (PPP) [Time] 13.2 s 11.7-14.9 [facility] Prothrombin time 13.2 SECONDS 11.7-14.[address] [facility] RBC Auto (Bld) [#/Vol]Ordere d By: Ayaz Hinton on 08-30-2024 Automated blood erythrocyte count 4.14 M/mm3 Low 4.2-5.4 [facility] STROKE Brain/Head without Co nton 08-30-2024 STROKE Brain/Head without Cont Normal [facility] STROKE CTA Head AND Neck W/C onon 08-30-2024 STROKE CTA Head AND Neck W/Con Normal [facility] Sodium levelOrdered By: Marquise Hinton on 08-30-2024 Sodium level 136 mmol/L 133-145 [facility] Specific gravity (U) [Rel de nsity]Ordered By: Ayaz Hinton on 08-30-2024 Urine specific gravity measurement 1.010 1.002-1.030 [facility] Squamous epithelial cells de tection in urine sediment by light microscopyOrdered By: Ayaz Hinton on 08-30-2024 Epithelial cells.squamous LM Ql (Urine sed) 0-5 SEEN /hpf 5-10 [facility] TSH DL <= 0.005 mIU/L QnOrde red By: Layla Craig on 08-30-2024 TSH Qn 0.881 uIU/mL 0.300-4.200 [facility] Thyroid Stim Hormone (TSH)on 08-30-2024 TSH 0.881 uIU/mL Normal 0.300-4.200 [facility] Comment on above: Performed By: #### L 503.5510, L501.9520, L503.0106 ####[facility] [address] [place], [address] Total carbon dioxide measure mentOrdered By: Layla Craig on 08-30-2024 CO2 [Moles/Vol] 37 mmol/L [facility] Troponin T.cardiac High sens itivity method [Mass/Vol]Ordered By: Ayaz Hinton on 08-30-2024 Troponin T.cardiac [Mass/volume] in Serum or Plasma by High sensitivity method 26 ng/L High <14 [facility] Troponin T.cardiac [Mass/vol ume] in Serum or Plasma by High sensitivity methodOrdered By: Ayaz Hinton on 08-30-2024 Troponin T.cardiac High sensitivity method [Mass/Vol] 38 ng/L High <14 [facility] Troponin T.cardiac High sensitivity method [Mass/Vol] 37 ng/L High <14 [facility] Troponin T.cardiac High sensitivity method [Mass/Vol] 26 ng/L High <14 [facility] Unidentified crystals LM.HPF (Urine sed) [#/Area]Ordered By: Ayaz Hinton on 08-30-2024 Urine sediment unidentified crystal count by microscopy (number/high powered field) See comment None Seen [facility] Urea nitrogen [Mass/Vol]Orde red By: Ayaz Hinton on 08-30-2024 Serum or plasma urea nitrogen measurement (mass/volume) 31 mg/dL High 4-19 [facility] Urinalysis, Completeon 08-30 BACTERIA 1+ /hpf Normal None Seen [facility] Comment on above: Order Comment: MARV CTOR TO SPECIFY Performed By: #### L 400.0001 ####[facility] [address] [place], [address] CRYSTAL,OTHER Normal None Seen [facility] Comment on above: Order Comment: MARV CTOR TO SPECIFY Result Comment: 2+ S TARCH CRYSTALS Performed By: #### L 400.0001 ####[facility] [address] [place], [address] EPI,SQUAMOUS 0-5 SEEN Normal 5-10 [facility] Comment on above: Order Comment: MARV CTOR TO SPECIFY Performed By: #### L 400.0001 ####[facility] [address] [place], [address] Mucus Ql (Urine sed) 1+ /hpf Normal [facility] Comment on above: Order Comment: MARV CTOR TO SPECIFY Performed By: #### L 400.0001 ####[facility] [address] [place], [address] WBC 0-5 SEEN Normal 0-5 [facility] Comment on above: Order Comment: MARV CTOR TO SPECIFY Performed By: #### L 400.0001 ####[facility] [address] [place], [address] RBC 0 SEEN Normal 0-5 [facility] Comment on above: Order Comment: MARV CTOR TO SPECIFY Performed By: #### L 400.0001 ####[facility] [address] [facility] [address] Urine Drug Screen (VISTA)on 08-30-2024 AMPHETAMINES Normal <1000 ng/mL [facility] Comment on above: Result Comment: BOBBI ENT DISCHARGED. Performed By: #### L 505.5000 ####[facility] [address] [facility] [address] BARBITIURATES Normal < 200 ng/mL [facility] Comment on above: Result Comment: BOBBI ENT DISCHARGED. Performed By: #### L 505.5000 ####[facility] [address] [place] [id number] BENZODIAZIPINE Normal < 200 ng/mL [facility] Comment on above: Result Comment: BOBBI ENT DISCHARGED. Performed By: #### L 505.5000 ####[facility] [address] [place] [address] BUP Ur Drug Scr Normal < 200 ng/mL [facility] Comment on above: Result Comment: BOBBI ENT DISCHARGED. Performed By: #### L 505.5000 ####[facility] [address] [place] [address] COCAINE Normal < 300 ng/mL [facility] Comment on above: Result Comment: BOBBI ENT DISCHARGED. Performed By: #### L 505.5000 ####[facility] [address] [place] [address] Fentanyl Normal [facility] Comment on above: Result Comment: BOBBI ENT DISCHARGED. Performed By: #### L 505.5000 ####[facility] [address] [place] [address] METHADONE Normal < 300 ng/mL [facility] Comment on above: Result Comment: BOBBI ENT DISCHARGED. Performed By: #### L 505.5000 ####[facility] [address] [place] [id number] OPIATES Normal < 300 ng/mL [facility] Comment on above: Result Comment: BOBBI ENT DISCHARGED. Performed By: #### L 505.5000 ####[facility] [address] [place] [id number] OXYCODONE Normal < 100 ng/mL [facility] Comment on above: Result Comment: BOBBI ENT DISCHARGED. Performed By: #### L 505.5000 ####[facility] [address] [place] [address] PCP Normal < 25 ng/mL [facility] Comment on above: Result Comment: BOBBI ENT DISCHARGED. Performed By: #### L 505.5000 ####[facility] [address] [place] [address] THC Normal < 50 ng/mL [facility] Comment on above: Result Comment: BOBBI ENT DISCHARGED. Performed By: #### L 505.5000 ####[facility] [address] [place] [address] Urine blood detectionOrdered By: Ayaz Hinton on 08-30-2024 Urine blood detection 10 /ul High Negative [facility] Urine clarityOrdered By: Kota Hinton on 08-30-2024 Clarity (U) Cloudy Clear [facility] Urine color determinationOrd ered By: Ayaz Hinton on 08-30-2024 Color (U) Yellow Yellow [facility] Urine glucose detectionOrder ed By: Ayaz Hinton on 08-30-2024 Glucose Ql (U) Normal mg/dl Normal [facility] Urine glucose detection Normal mg/dl Normal [facility] Urine leukocyte esterase det ection by dipstickOrdered By: Ayaz Hinton on 08-30-2024 Leukocyte esterase Test strip Ql (U) 100 /ul High Negative [facility] Urine pHOrdered By: Ayaz amaro on 08-30-2024 pH (U) 8.0 [pH] 5.0 - 8.0 [facility] Urine sediment bacteria coun t by microscopy (number/high power field)Ordered By: Ayaz Hinton on 08-30-2024 Bacteria LM.HPF (Urine sed) [#/Area] 1 /[HPF] None Seen [facility] Urine sediment bacteria count by microscopy (number/high power field) 1+ /hpf [facility] Urine sediment unidentified crystal count by microscopy (number/high powered field)Ordered By: Ayaz Hinton on 08-30-2024 Unidentified crystals LM.HPF (Urine sed) [#/Area] See comment None Seen [facility] Urine specific gravity measu rementOrdered By: Ayaz Hinton on 08-30-2024 Specific gravity (U) [Rel density] 1.010 1.002-1.030 [facility] Urine total bilirubin detect ion by test stripOrdered By: Ayaz Hinton on 08-30-2024 Urine total bilirubin detection by test strip Negative Negative [facility] Urine urobilinogen measureme ntOrdered By: Ayaz Hinton on 08-30-2024 Urobilinogen Ql (U) Normal mg/dl Normal [facility] Venous Blood Gason Blood Gas Type ASHER Normal [facility] Comment on above: Performed By: #### L 9000.0810 ####[facility] [address] [place], [address] CO2 [Moles/Vol] 31 mmol/L Normal 23-33 [facility] Comment on above: Performed By: #### L 9000.0810 ####[facility] [address] [place], [address] HCO3 (Bld) [Moles/Vol] 30 mmol/L High 22-26 [facility] Comment on above: Performed By: #### L 9000.0810 ####[facility] [address] [place], [address] O2 Delivery Dev Not entered [facility] Comment on above: Performed By: #### L 9000.0810 ####[facility] [address] [place], [address] Read Back By Yes Normal [facility] Comment on above: Performed By: #### L 9000.0810 ####[facility] [address] [place], [address] Results To craig Normal [facility] Comment on above: Performed By: #### L 9000.0810 ####[facility] [address] [place], [address] SITE Not entered Normal [facility] Comment on above: Performed By: #### L 9000.0810 ####[facility] [address] [place], [address] Time Given 16:51:18 Normal [facility] Comment on above: Performed By: #### L 9000.0810 ####[facility] [address] [place], [address] VBG BE 10 mmol/L High -1.0-3.5 [facility] Comment on above: Performed By: #### L 9000.0810 ####[facility] [address] [place], [address] VBG pCO2 22.7 mmHg Low 41-51 [facility] Comment on above: Performed By: #### L 9000.0810 ####[facility] [address] [place], [address] VBG pH 7.73 Invalid Interpretation Code 7.32-7.42 [facility] Comment on above: Performed By: #### L 9000.0810 ####[facility] [address] [place], [address] VBG PO2 170 mmHg High 25-40 [facility] Comment on above: Performed By: #### L 9000.0810 ####[facility] [address] [place], [address] VBG SO2 100 High 50-70 [facility] Comment on above: Performed By: #### L 9000.0810 ####[facility] [address] [place], [address] Venous blood ammonia measure mentOrdered By: Layla Craig on 08-30-2024 Ammonia (P) [Moles/Vol] 14.8 umol/L 11-51 [facility] Venous blood base excess fran surementOrdered By: Layla Craig on 08-30-2024 Base excess Calc (BldV) [Moles/Vol] 10 mmol/L High -1.0-3.5 [facility] Venous blood bicarbonate fran surementOrdered By: Layla Craig on 08-30-2024 HCO3 (Bld) [Moles/Vol] 30 mmol/L High 22-26 [facility] Venous blood pH measurementO rdered By: Layla Craig on 08-30-2024 pH (BldV) 7.73 [pH] High 7.32-7.42 [facility] Venous blood partial pressur e of carbon dioxide measurementOrdered By: aLyla Craig on 08-30-2024 CO2 (BldV) [Partial pressure] 22.7 mm[Hg] Low 41-51 [facility] Venous blood partial pressur e of oxygen measurementOrdered By: Layla Craig on 08-30-2024 Oxygen (BldV) [Partial pressure] 170 mm[Hg] High 25-40 [facility] Vitamin B12on 08-30-2024 Cobalamin (Vitamin B12) [Mass/Vol] 338 pg/mL Normal 180-914 [facility] Comment on above: Performed By: #### L 503.5510, L501.9520, L503.0106 ####[facility] [address] [place], [place], [address] Vitamin B12 ser/plasOrdered By: Layla Craig on 08-30-2024 Cobalamin (Vitamin B12) [Mass/Vol] 338 pg/mL 180-914 [facility] White blood cell (WBC) count Ordered By: Ayaz Hinton on 08-30-2024 White blood cell (WBC) count 7.5 K/mm3 4.4-11.0 [facility] White blood cell countOrdere d By: Ayaz Hinton on 08-30-2024 White blood cell count 0-5 SEEN /hpf 0-5 [facility] White blood cell count 0-5 SEEN /hpf 5-10 [facility] aPTT Coag (PPP) [Time]Ordere d By: Ayaz Hinton on 08-30-2024 Activated partial thromboplastin time (aPTT) in platelet poor plasma by coagulation a 32.4 Seconds 24.1-36.2 [facility] pH (U)Ordered By: Ayaz garcia on 08-30-2024 Urine pH 8.0 5.0 - 8.0 [facility] Basic Metabolic Profile (BMP )on 07-29-2024 BUN Normal 7-18 [facility] Comment on above: Result Comment: Canc elled via OM: Order cancelled - Patient discharged Performed By: #### L 500.2500, L100.0100 ####[facility] [address] [facility] [address] BUN/CRE Normal 10-20 [facility] Comment on above: Result Comment: Canc elled via OM: Order cancelled - Patient discharged Performed By: #### L 500.2500, L100.0100 ####[facility] [address] [place], [address] Calcium Normal 8.5-10.1 [facility] Comment on above: Result Comment: Canc elled via OM: Order cancelled - Patient discharged Performed By: #### L 500.2500, L100.0100 ####[facility] [address] [place], [address] CL Normal 98-107 [facility] Comment on above: Result Comment: Canc elled via OM: Order cancelled - Patient discharged Performed By: #### L 500.2500, L100.0100 ####[facility] [address] [place], [address] CO2 Normal 21.0-32.0 [facility] Comment on above: Result Comment: Canc elled via OM: Order cancelled - Patient discharged Performed By: #### L 500.2500, L100.0100 ####[facility] [address] [place], [address] CREAT,SERUM Normal 0.55-1.02 [facility] Comment on above: Result Comment: Canc elled via OM: Order cancelled - Patient discharged Performed By: #### L 500.2500, L100.0100 ####[facility] [address] [place], [address] eGFR Normal >60 [facility] Comment on above: Result Comment: Canc elled via OM: Order cancelled - Patient discharged Performed By: #### L 500.2500, L100.0100 ####[facility] [address] [place], [address] EST GFR - AA Normal >60 [facility] Comment on above: Result Comment: Canc elled via OM: Order cancelled - Patient discharged Performed By: #### L 500.2500, L100.0100 ####[facility] [address] [place], [address] GAP Normal 5-15 [facility] Comment on above: Result Comment: Canc elled via OM: Order cancelled - Patient discharged Performed By: #### L 500.2500, L100.0100 ####[facility] [address] [place], [address] GLU Normal 74-106 [facility] Comment on above: Result Comment: Canc elled via OM: Order cancelled - Patient discharged Performed By: #### L 500.2500, L100.0100 ####[facility] [address] [place], [address] Potassium Normal 3.5-5.1 [facility] Comment on above: Result Comment: Canc elled via OM: Order cancelled - Patient discharged Performed By: #### L 500.2500, L100.0100 ####[facility] [address] [place], [address] Basic Metabolic Profile (BMP) Normal 136-145 [facility] Comment on above: Result Comment: Canc elled via OM: Order cancelled - Patient discharged Performed By: #### L 500.2500, L100.0100 ####[facility] [address] [place], [address] CBC W/Diff, Automatedon 03-2 0-2024 Absolute Neut Normal 2.0-7.7 [facility] Comment on above: Result Comment: Canc elled via OM: Order cancelled - Patient discharged Performed By: #### L 500.2500, L100.0100 ####[facility] [address], [address] HCT Normal 37-47 [facility] Comment on above: Result Comment: Canc elled via OM: Order cancelled - Patient discharged Performed By: #### L 500.2500, L100.0100 ####[facility] [address] [place], [address] HGB Normal 12.0-15.0 [facility] Comment on above: Result Comment: Canc elled via OM: Order cancelled - Patient discharged Performed By: #### L 500.2500, L100.0100 ####[facility] [address] [place], [address] MCH Normal 27.0-32.0 [facility] Comment on above: Result Comment: Canc elled via OM: Order cancelled - Patient discharged Performed By: #### L 500.2500, L100.0100 ####[facility] [address] [place], [address] MCHC Normal 32-36 [facility] Comment on above: Result Comment: Canc elled via OM: Order cancelled - Patient discharged Performed By: #### L 500.2500, L100.0100 ####[facility] [address] [place], [address] MCV Normal 81-99 [facility] Comment on above: Result Comment: Canc elled via OM: Order cancelled - Patient discharged Performed By: #### L 500.2500, L100.0100 ####[facility] [address] [place], [address] NEUT% Normal 47-70 [facility] Comment on above: Result Comment: Canc elled via OM: Order cancelled - Patient discharged Performed By: #### L 500.2500, L100.0100 ####[facility] [address] [place], [address] PLT Normal 150-450 [facility] Comment on above: Result Comment: Canc elled via OM: Order cancelled - Patient discharged Performed By: #### L 500.2500, L100.0100 ####[facility] [address] [place], [address] RBC Normal 4.2-5.4 [facility] Comment on above: Result Comment: Canc elled via OM: Order cancelled - Patient discharged Performed By: #### L 500.2500, L100.0100 ####[facility] [address] [place], [address] RDW CV Normal 11.6-14.6 [facility] Comment on above: Result Comment: Canc elled via OM: Order cancelled - Patient discharged Performed By: #### L 500.2500, L100.0100 ####[facility] [address] [place], [address] RDW SD Normal 35.1-43.9 [facility] Comment on above: Result Comment: Canc elled via OM: Order cancelled - Patient discharged Performed By: #### L 500.2500, L100.0100 ####[facility] [address] [place], [address] WBC Normal 4.4-11.0 [facility] Comment on above: Result Comment: Canc elled via OM: Order cancelled - Patient discharged Performed By: #### L 500.2500, L100.0100 ####[facility] [address] [place], [place], [id number] Lead EKG performed by BMS on 07-26-2024 12 Lead EKG performed by BMS Normal [facility] Cardiology Visit Reporton Cardiology Visit Report Normal [facility] Absolute lymphocyte countOrd ered By: Aleks Marshall on 07-22-2024 Lymphocytes Auto (Unsp spec) [#/Vol] 1.46 10*3/uL 0.83-4.51 [facility] Absolute neutrophil countOrd ered By: Aleks Marshall on 07-22-2024 Absolute neutrophil count 1.6 X10^3/uL Low 2.0-7.7 [facility] Anion gap [Moles/Vol]Ordered By: Aleks Marshall on 07-22-2024 Anion gap in Serum or Plasma 12 5-15 [facility] Anion gap in Serum or Plasma Ordered By: Aleks Marshall on 07-22-2024 Anion gap [Moles/Vol] 12 mmol/L - [facility] Automated lymphocyte count a s percentage of total leukocytesOrdered By: Aleks Marshall on 07-22-2024 Lymphocytes/100 WBC Auto (Unsp spec) 35.4 % 19-41 [facility] BUN/creatinine ratioOrdered By: Aleks Marshall on 07-22-2024 Urea nitrogen/Creatinine [Mass ratio] 37.8 mg/mg High 10-20 [facility] BUN/creatinine ratio 37.8 RATIO High 10-20 [facility] Basic Metabolic Profile (BMP )on 07-22-2024 EST GFR - AA TNP Normal >60 [facility] Comment on above: Performed By: #### L 100.0100, L500.2500 ####[facility] [address] [place], [place], [address] Basophil percentageOrdered B y: Aleks Marshall on 07-22-2024 Basophils/100 WBC (Bld) 0.5 % 0-1 [facility] Basophil percentage 0.5 % 0-1 [facility] CBC W/Diff, Automatedon -05 14-2024 Absolute Lymph 1.46 X10 3/uL Normal 0.83-4.51 [facility] Comment on above: Performed By: #### L 100.0100, L500.2500 ####[facility] [address] [place], [address] Absolute Neut 1.6 X10 3/uL Low 2.0-7.7 [facility] Comment on above: Performed By: #### L 100.0100, L500.2500 ####[facility] [address] [place], [address] Basophils/100 WBC (Bld) 0.5 % Normal 0-1 [facility] Comment on above: Performed By: #### L 100.0100, L500.2500 ####[facility] [address] [place], [address] Eosinophils/100 WBC (Bld) 9.0 % High 0-5 [facility] Comment on above: Performed By: #### L 100.0100, L500.2500 ####[facility] [address] [place], [address] Erythrocyte distribution width (RBC) [Ratio] 14.8 % High 11.6-14.6 [facility] Comment on above: Performed By: #### L 100.0100, L500.2500 ####[facility] [address] [place], [address] Hematocrit (Bld) [Volume fraction] 26.5 % Low 37-47 [facility] Comment on above: Performed By: #### L 100.0100, L500.2500 ####[facility] [address] [place], [address] Hemoglobin (Bld) [Mass/Vol] 8.4 g/dL Low 12.0-15.0 [facility] Comment on above: Performed By: #### L 100.0100, L500.2500 ####[facility] [address] [place], [address] IG% 0.500 Normal 0.0-0.9 [facility] Comment on above: Result Comment: IG% - Immature Granulocytes (promyelocytes, myelocytes andmetamyelocytes) > 1% indicates that a LEFT SHIFT is Present. Performed By: #### L 100.0100, L500.2500 ####[facility] [address] [place], [address] Lymphocytes/100 WBC (Bld) 35.4 % Normal 19-41 [facility] Comment on above: Performed By: #### L 100.0100, L500.2500 ####[facility] [address] [place], [address] MCH (RBC) [Entitic mass] 30.3 pg Normal 27.0-32.0 [facility] Comment on above: Performed By: #### L 100.0100, L500.2500 ####[facility] [address] [place], [address] MCHC (RBC) [Mass/Vol] 31.7 g/dL Low 32-36 [facility] Comment on above: Performed By: #### L 100.0100, L500.2500 ####[facility] [address] [place], [address] MCV (RBC) [Entitic vol] 95.7 fL Normal 81-99 [facility] Comment on above: Performed By: #### L 100.0100, L500.2500 ####[facility] [address] [place], [address] Monocytes/100 WBC (Bld) 15.3 % High 0-10 [facility] Comment on above: Performed By: #### L 100.0100, L500.2500 ####[facility] [address] [place], [address] Neutrophils/100 WBC (Bld) 39.3 % Low 47-70 [facility] Comment on above: Performed By: #### L 100.0100, L500.2500 ####[facility] [address] [place], [address] Nucleated RBC (Bld) [#/Vol] 0 10*3/uL Normal 0-5 [facility] Comment on above: Performed By: #### L 100.0100, L500.2500 ####[facility] [address] [place], [address] Platelet mean volume (Bld) [Entitic vol] 9.8 fL Normal 6.2-12.0 [facility] Comment on above: Performed By: #### L 100.0100, L500.2500 ####[facility] [address] [place], [address] Platelets (Bld) [#/Vol] 210 10*3/uL Normal 150-450 [facility] Comment on above: Performed By: #### L 100.0100, L500.2500 ####[facility] [address] [place], [address] RBC (Bld) [#/Vol] 2.77 10*6/uL Low 4.2-5.4 [facility] Comment on above: Performed By: #### L 100.0100, L500.2500 ####[facility] [address] [place], [address] RDW SD 52.6 fl High 35.1-43.9 [facility] Comment on above: Performed By: #### L 100.0100, L500.2500 ####[facility] [address] [place], [address] WBC (Bld) [#/Vol] 4.1 10*3/uL Low 4.4-11.[address] [facility] Comment on above: Performed By: #### L 100.0100, L500.2500 ####[facility] [address] [place], [address] Calcium [Mass/Vol]Ordered By : Aleks Marshall on 07-22-2024 Serum or plasma calcium measurement (mass/volume) 9.3 mg/dL 7.6-11.0 [facility] Carbon dioxide, total [Moles /volume] in Central venous bloodOrdered By: Aleks Marshall on 07-22-2024 CO2 [Moles/Vol] 25.1 mmol/L 21.0-32.0 [facility] Carbon dioxide, total [Moles/volume] in Central venous blood 25.1 mmol/L 21.0-32.0 [facility] Chloride assayOrdered By: Yobany Marshall on 07-22-2024 Chloride [Moles/Vol] 101 mmol/L 98-108 [facility] Chloride assay 101 mmol/L 98-108 [facility] Creatinine [Mass/Vol]Ordered By: Aleks Marshall on 07-22-2024 Serum creatinine measurement (mass/volume) 0.76 mg/dL 0.70-1.20 [facility] Eosinophil percentageOrdered By: Aleks Marshall 07-22-2024 Eosinophils/100 WBC (Bld) 9.0 % High 0-5 [facility] Eosinophil percentage 9.0 % High 0-5 [facility] Erythrocyte distribution wid th (RBC) [Ratio]Ordered By: Aleks Marshall on 07-22-2024 Erythrocyte distribution width ratio 14.8 % High 11.6-14.6 [facility] Erythrocyte distribution wid th ratioOrdered By: Aleks Marshall on 07-22-2024 Erythrocyte distribution width (RBC) [Ratio] 14.8 % High 11.6-14.6 [facility] Erythrocyte distribution wid th standard deviationOrdered By: Aleks Marshall on 07-22-2024 Erythrocyte distribution width (RBC) [Ratio] 52.6 fl High 35.1-43.9 [facility] Erythrocyte distribution width standard deviation 52.6 fl High 35.1-43.9 [facility] Estimated glomerular filtrat ion rate (GFR) AmericanOrdered By: Aleks Marshall on 07-22-2024 Estimated glomerular filtration rate (GFR) [facility] Estimation of creatinine mary ellen aranceOrdered By: Aleks Marshall on 07-22-2024 Estimation of creatinine clearance 44.34 ml/min Low 50-250 [facility] GFR/1.73 sq M.predicted jane g non-blacks MDRD (S/P/Bld) [Vol rate/Area]Ordered By: Aleks Marshall on 07-22-2024 Glomerular filtration rate (GFR) estimation/1.73 sq m using serum, plasma, or whole b 75 >60 [facility] Glomerular filtration rate ( GFR) estimation/1.73 sq m using serum, plasma, or whole bOrdered By: lAeks Marshall on 07-22-2024 GFR/1.73 sq M.predicted among non-blacks MDRD (S/P/Bld) [Vol rate/Area] 75 mL/min/{1.73_m2} >60 [facility] Glucose [Mass/Vol]Ordered By : Aleks Marshall 07-22-2024 Serum glucose measurement (mass/volume) 86 mg/dL 70-99 [facility] Hematocrit Auto (Bld) [Volum e fraction]Ordered By: Aleks Marshall 07-22-2024 Hematocrit (Bld) [Volume fraction] 26.5 % Low 37-47 [facility] Automated blood hematocrit (percentage) 26.5 % Low 37-47 [facility] Hemoglobin measurementOrdere d By: Aleks Marshall 07-22-2024 Hemoglobin (Bld) [Mass/Vol] 8.4 g/dL Low 12.0-15.0 [facility] Hemoglobin measurement 8.4 g/dL Low 12.0-15.0 [facility] Immature granulocytes/100 WB C Auto (Bld)Ordered By: Aleks Marshall 07-22-2024 Immature granulocytes/100 WBC (Bld) 0.500 % 0.0-0.9 [facility] Automated immature granulocyte percentage 0.500 % 0.0-0.9 [facility] Lymphocytes Auto (Unsp spec) [#/Vol]Ordered By: Aleks Marshall 07-22-2024 Absolute lymphocyte count 1.46 X10^3/uL 0.83-4.51 [facility] Lymphocytes/100 WBC Auto (Un sp spec)Ordered By: Aleks Marshall on 07-22-2024 Automated lymphocyte count as percentage of total leukocytes 35.4 % 19-41 [facility] MCV (RBC) [Entitic vol]Order ed By: Aleks Marshall on 07-22-2024 MCV (mean corpuscular volume) determination 95.7 fL 81-99 [facility] MCV (mean corpuscular volume ) determinationOrdered By: Aleks Marshall on 07-22-2024 MCV (RBC) [Entitic vol] 95.7 fL 81-99 [facility] Mean corpuscular hemoglobin (MCH) determinationOrdered By: Aleks Marshall on 07-22-2024 MCH (RBC) [Entitic mass] 30.3 pg 27.0-32.0 [facility] Mean corpuscular hemoglobin (MCH) determination 30.3 pg 27.0-32.0 [facility] Mean corpuscular hemoglobin concentration (MCHC) determinationOrdered By: Aleks Marshall on 07-22-2024 Mean corpuscular hemoglobin concentration (MCHC) determination 31.7 g/dL Low 32-36 [facility] Mean platelet volume determi nationOrdered By: Aleks Marshall on 07-22-2024 Mean platelet volume determination 9.8 fl 6.2-12.0 [facility] Monocyte percentageOrdered B y: Aleks Marshall on 07-22-2024 Monocytes/100 WBC (Bld) 15.3 % High 0-10 [facility] Monocyte percentage 15.3 % High 0-10 [facility] Neutrophil percentageOrdered By: Aleks Marshall on 07-22-2024 Neutrophils/100 WBC (Bld) 39.3 % Low 47-70 [facility] Neutrophil percentage 39.3 % Low 47-70 [facility] Nucleated red blood cell per centageOrdered By: Aleks Marshall on 07-22-2024 Nucleated red blood cell percentage 0 % 0-5 [facility] Platelet countOrdered By: Yobany Marshall on 07-22-2024 Platelets (Bld) [#/Vol] 210 10*3/uL 150-450 [facility] Platelet count 210 K/mm3 150-450 [facility] Potassium (Unsp spec) [Mass/ Vol]Ordered By: Aleks Marshall on 07-22-2024 Potassium measurement (mass/volume) 4.2 mmol/L 3.3-5.1 [facility] Potassium measurement (mass/ volume)Ordered By: Aleks Marshall on 07-22-2024 Potassium (Unsp spec) [Mass/Vol] 4.2 mmol/L 3.3-5.1 [facility] RBC Auto (Bld) [#/Vol]Ordere d By: Aleks aMrshall on 07-22-2024 RBC (Bld) [#/Vol] 2.77 10*6/uL Low 4.2-5.4 [facility] Automated blood erythrocyte count 2.77 M/mm3 Low 4.2-5.4 [facility] Serum creatinine measurement (mass/volume)Ordered By: Aleks Marshall on 07-22-2024 Creatinine [Mass/Vol] 0.76 mg/dL 0.70-1.20 [facility] Serum glucose measurement (m ass/volume)Ordered By: Aleks Marshall 07-22-2024 Glucose [Mass/Vol] 86 mg/dL 70-[address] [facility] Serum or plasma calcium manuel urement (mass/volume)Ordered By: Aleks Marshall 07-22-2024 Calcium [Mass/Vol] 9.3 mg/dL 7.6-11.[address] [facility] Serum or plasma urea nitroge n measurement (mass/volume)Ordered By: Aleks Marshall 07-22-2024 Urea nitrogen [Mass/Vol] 29 mg/dL High 08-28 [facility] Sodium levelOrdered By: Aleks Marshall 07-22-2024 Sodium [Moles/Vol] 138 mmol/L 133-[address] [facility] Sodium level 138 mmol/L 133-145 [facility] Urea nitrogen [Mass/Vol]Orde red By: Aleks Marshall 07-22-2024 Serum or plasma urea nitrogen measurement (mass/volume) 29 mg/dL High - [facility] White blood cell (WBC) count Ordered By: Aleks Marshall 07-22-2024 WBC (Bld) [#/Vol] 4.1 10*3/uL Low 4.4-11.[address] [facility] White blood cell (WBC) count 4.1 K/mm3 Low 4.4-11.0 [facility] Chest PA and Lateralon 07-20 Chest PA and Lateral Normal [facility] HH, Hemoglobin AND Hematocri ton 07-19-2024 Hematocrit (Bld) [Volume fraction] 26.4 % Low 37-47 [facility] Comment on above: Performed By: #### L 100.0600 ####[facility] [address] [place], [address] Hemoglobin (Bld) [Mass/Vol] 8.4 g/dL Low 12.0-15.0 [facility] Comment on above: Performed By: #### L 100.0600 ####[facility] [address] [place], [address] RESPIRATORY PANEL MOLECULARo n 07-18-2024 RP PANEL Normal [facility] Comment on above: Performed By: #### M 100.638 ####[facility] [address] [place], [address] COVID 19 AG RAPID (RN COLLEC T)on 07-17-2024 SARS-CoV-2 (COVID-19) RNA RHYS+probe Ql (Unsp spec) Normal [facility] Comment on above: Performed By: #### M 100.505 ####[facility] [address] [place], [address] COVID-19 virus antigen assay Ordered By: Aleks Marshall on 07-17-2024 SARS-CoV-2 (COVID-19) Ag IA.rapid Ql (Resp) [facility] Respiratory pathogens detect ion panel by molecular detection methodOrdered By: Aleks Marshall on 07-17-2024 Respiratory pathogens DNA and RNA panel RHYS+probe (Resp) [facility] HH, Hemoglobin AND Hematocri ton 07-16-2024 Hematocrit (Bld) [Volume fraction] 27.1 % Low 37-47 [facility] Comment on above: Performed By: #### L 100.0600 ####[facility] [address] [place], [address] Hemoglobin (Bld) [Mass/Vol] 8.6 g/dL Low 12.0-15.0 [facility] Comment on above: Performed By: #### L 100.0600 ####[facility] [address] [place], [address] Basic Metabolic Profile (BMP )on 07-15-2024 EST GFR - AA TNP Normal >60 [facility] Comment on above: Performed By: #### L 100.0100, L500.2500 ####[facility] [address] [place], [address] CBC W/Diff, Automatedon Absolute Lymph 1.56 X10 3/uL Normal 0.83-4.51 [facility] Comment on above: Performed By: #### L 100.0100, L500.2500 ####[facility] [address] [place], [address] Absolute Neut 2.9 X10 3/uL Normal 2.0-7.7 [facility] Comment on above: Performed By: #### L 100.0100, L500.2500 ####[facility] [address] [place], [address] Basophils/100 WBC (Bld) 1.1 % High 0-1 [facility] Comment on above: Performed By: #### L 100.0100, L500.2500 ####[facility] [address] [place], [address] Eosinophils/100 WBC (Bld) 4.7 % Normal 0-5 [facility] Comment on above: Performed By: #### L 100.0100, L500.2500 ####[facility] [address] [place], [address] Erythrocyte distribution width (RBC) [Ratio] 15.1 % High 11.6-14.6 [facility] Comment on above: Performed By: #### L 100.0100, L500.2500 ####[facility] [address] [place], [address] Hematocrit (Bld) [Volume fraction] 26.9 % Low 37-47 [facility] Comment on above: Performed By: #### L 100.0100, L500.2500 ####[facility] [address] [place], [address] Hemoglobin (Bld) [Mass/Vol] 8.4 g/dL Low 12.0-15.0 [facility] Comment on above: Performed By: #### L 100.0100, L500.2500 ####[facility] [address] [place], [address] IG% 0.900 Normal 0.0-0.9 [facility] Comment on above: Result Comment: IG% - Immature Granulocytes (promyelocytes, myelocytes andmetamyelocytes) > 1% indicates that a LEFT SHIFT is Present. Performed By: #### L 100.0100, L500.2500 ####[facility] [address] [place], [address] Lymphocytes/100 WBC (Bld) 28.5 % Normal 19-41 [facility] Comment on above: Performed By: #### L 100.0100, L500.2500 ####[facility] [address] [place], [address] MCH (RBC) [Entitic mass] 30.0 pg Normal 27.0-32.0 [facility] Comment on above: Performed By: #### L 100.0100, L500.2500 ####[facility] [address] [place], [address] MCHC (RBC) [Mass/Vol] 31.2 g/dL Low 32-36 [facility] Comment on above: Performed By: #### L 100.0100, L500.2500 ####[facility] [address] [place], [address] MCV (RBC) [Entitic vol] 96.1 fL Normal 81-99 [facility] Comment on above: Performed By: #### L 100.0100, L500.2500 ####[facility] [address] [place], [address] Monocytes/100 WBC (Bld) 11.9 % High 0-10 [facility] Comment on above: Performed By: #### L 100.0100, L500.2500 ####[facility] [address] [place], [address] Neutrophils/100 WBC (Bld) 52.9 % Normal 47-70 [facility] Comment on above: Performed By: #### L 100.0100, L500.2500 ####[facility] [address] [place], [address] Nucleated RBC (Bld) [#/Vol] 0 10*3/uL Normal 0-5 [facility] Comment on above: Performed By: #### L 100.0100, L500.2500 ####[facility] [address] [place], [address] Platelet mean volume (Bld) [Entitic vol] 9.3 fL Normal 6.2-12.0 [facility] Comment on above: Performed By: #### L 100.0100, L500.2500 ####[facility] [address] [place], [address] Platelets (Bld) [#/Vol] 298 10*3/uL Normal 150-450 [facility] Comment on above: Performed By: #### L 100.0100, L500.2500 ####[facility] [address] [place], [address] RBC (Bld) [#/Vol] 2.80 10*6/uL Low 4.2-5.4 [facility] Comment on above: Performed By: #### L 100.0100, L500.2500 ####[facility] [address] [place], [address] RDW SD 53.6 fl High 35.1-43.9 [facility] Comment on above: Performed By: #### L 100.0100, L500.2500 ####[facility] [address] [place], [address] WBC (Bld) [#/Vol] 5.5 10*3/uL Normal 4.4-11.[address] [facility] Comment on above: Performed By: #### L 100.0100, L500.2500 ####[facility] [address] [place], [address] Stool Occult Blood iFOBon STOB Normal [facility] Comment on above: Performed By: #### M 100.7900 ####[facility] [address] [place], [address] Stool gastrointestinal hemog lobin detection by immunologic methodOrdered By: Aleks Marshall on 07-15-2024 Lower GI hemoglobin IA Ql (Stl) [facility] Basic Metabolic Profile (BMP )on 07-12-2024 BUN Normal 7-18 [facility] Comment on above: Result Comment: Canc elled via OM: Order cancelled - Patient discharged Performed By: #### L 500.2500, L100.0100 ####[facility] [address] [place], [address] BUN/CRE Normal 10-20 [facility] Comment on above: Result Comment: Canc elled via OM: Order cancelled - Patient discharged Performed By: #### L 500.2500, L100.0100 ####[facility] [address] [place], [address] CA,Total Normal 8.5-10.1 [facility] Comment on above: Result Comment: Canc elled via OM: Order cancelled - Patient discharged Performed By: #### L 500.2500, L100.0100 ####[facility] [address] [place], [address] CL Normal 98-107 [facility] Comment on above: Result Comment: Canc elled via OM: Order cancelled - Patient discharged Performed By: #### L 500.2500, L100.0100 ####[facility] [address], [address] CO2 Normal 21.0-32.0 [facility] Comment on above: Result Comment: Canc elled via OM: Order cancelled - Patient discharged Performed By: #### L 500.2500, L100.0100 ####[facility] [address] [place], [address] CREAT,SERUM Normal 0.55-1.02 [facility] Comment on above: Result Comment: Canc elled via OM: Order cancelled - Patient discharged Performed By: #### L 500.2500, L100.0100 ####[facility] [address] [place], [address] EST GFR Normal >60 [facility] Comment on above: Result Comment: Canc elled via OM: Order cancelled - Patient discharged Performed By: #### L 500.2500, L100.0100 ####[facility] [address], [address] EST GFR - AA Normal >60 [facility] Comment on above: Result Comment: Canc elled via OM: Order cancelled - Patient discharged Performed By: #### L 500.2500, L100.0100 ####[facility] [address] [place], [address] GAP Normal 5-15 [facility] Comment on above: Result Comment: Canc elled via OM: Order cancelled - Patient discharged Performed By: #### L 500.2500, L100.0100 ####[facility] [address] [place], [address] GLU Normal 74-106 [facility] Comment on above: Result Comment: Canc elled via OM: Order cancelled - Patient discharged Performed By: #### L 500.2500, L100.0100 ####[facility] [address] [place], [address] Potassium Normal 3.5-5.1 [facility] Comment on above: Result Comment: Canc elled via OM: Order cancelled - Patient discharged Performed By: #### L 500.2500, L100.0100 ####[facility] [address] [place], [address] Basic Metabolic Profile (BMP) Normal 136-145 [facility] Comment on above: Result Comment: Canc elled via OM: Order cancelled - Patient discharged Performed By: #### L 500.2500, L100.0100 ####[facility] [address] [place], [address] CBC W/Diff, Automatedon 03-0 -2024 Absolute Neut Normal 2.0-7.7 [facility] Comment on above: Result Comment: Canc elled via OM: Order cancelled - Patient discharged Performed By: #### L 500.2500, L100.0100 ####[facility] [address] [place], [address] HCT Normal 37-47 [facility] Comment on above: Result Comment: Canc elled via OM: Order cancelled - Patient discharged Performed By: #### L 500.2500, L100.0100 ####[facility] [address] [place], [address] HGB Normal 12.0-15.0 [facility] Comment on above: Result Comment: Canc elled via OM: Order cancelled - Patient discharged Performed By: #### L 500.2500, L100.0100 ####[facility] [address] [place], [address] MCH Normal 27.0-32.0 [facility] Comment on above: Result Comment: Canc elled via OM: Order cancelled - Patient discharged Performed By: #### L 500.2500, L100.0100 ####[facility] [address] [place], [address] MCHC Normal 32-36 [facility] Comment on above: Result Comment: Canc elled via OM: Order cancelled - Patient discharged Performed By: #### L 500.2500, L100.0100 ####[facility] [address] [place], [address] MCV Normal 81-99 [facility] Comment on above: Result Comment: Canc elled via OM: Order cancelled - Patient discharged Performed By: #### L 500.2500, L100.0100 ####[facility] [address] [place], [address] NEUT% Normal 47-70 [facility] Comment on above: Result Comment: Canc elled via OM: Order cancelled - Patient discharged Performed By: #### L 500.2500, L100.0100 ####[facility] [address] [place], [address] PLT Normal 150-450 [facility] Comment on above: Result Comment: Canc elled via OM: Order cancelled - Patient discharged Performed By: #### L 500.2500, L100.0100 ####[facility] [address] [place], [address] RBC Normal 4.2-5.4 [facility] Comment on above: Result Comment: Canc elled via OM: Order cancelled - Patient discharged Performed By: #### L 500.2500, L100.0100 ####[facility] [address] [place], [address] RDW CV Normal 11.6-14.6 [facility] Comment on above: Result Comment: Canc elled via OM: Order cancelled - Patient discharged Performed By: #### L 500.2500, L100.0100 ####[facility] [address] [place], [address] RDW SD Normal 35.1-43.9 [facility] Comment on above: Result Comment: Canc elled via OM: Order cancelled - Patient discharged Performed By: #### L 500.2500, L100.0100 ####[facility] [address] [place], [address] WBC Normal 4.4-11.0 [facility] Comment on above: Result Comment: Canc elled via OM: Order cancelled - Patient discharged Performed By: #### L 500.2500, L100.0100 ####[facility] [address] [place], [address] Basic Metabolic Profile (BMP )on 07-08-2024 Calcium [Mass/Vol] 9.1 mg/dL Normal 7.6-11.[address] [facility] Comment on above: Performed By: #### L 100.0100, L500.2500 ####[facility] [address] [place], [address] Chloride [Moles/Vol] 100 mmol/L Normal 98-107 [facility] Comment on above: Performed By: #### L 100.0100, L500.2500 ####[facility] [address] [place], [address] CO2 [Moles/Vol] 26.1 mmol/L Normal 21.0-32.0 [facility] Comment on above: Performed By: #### L 100.0100, L500.2500 ####[facility] [address] [place], [address] EST GFR - AA TNP Normal >60 [facility] Comment on above: Performed By: #### L 100.0100, L500.2500 ####[facility] [address] [place], [address] GAP 11 Normal 5-15 [facility] Comment on above: Performed By: #### L 100.0100, L500.2500 ####[facility] [address] [place], [address] Potassium [Moles/Vol] 4.0 mmol/L Normal 3.5-5.1 [facility] Comment on above: Performed By: #### L 100.0100, L500.2500 ####[facility] [address] [place], [address] Sodium [Moles/Vol] 137 mmol/L Normal 136-[address] [facility] Comment on above: Performed By: #### L 100.0100, L500.2500 ####[facility] [address] [place], [address] CBC W/Diff, Automatedon 02- Absolute Lymph 1.30 X10 3/uL Normal 0.83-4.51 [facility] Comment on above: Performed By: #### L 100.0100, L500.2500 ####[facility] [address] [place], [address] Absolute Neut 3.3 X10 3/uL Normal 2.0-7.7 [facility] Comment on above: Performed By: #### L 100.0100, L500.2500 ####[facility] [address] [place], [address] Basophils/100 WBC (Bld) 1.6 % High 0-1 [facility] Comment on above: Performed By: #### L 100.0100, L500.2500 ####[facility] [address] [place], [address] Eosinophils/100 WBC (Bld) 5.2 % High 0-5 [facility] Comment on above: Performed By: #### L 100.0100, L500.2500 ####[facility] [address] [place], [address] Erythrocyte distribution width (RBC) [Ratio] 15.2 % High 11.6-14.6 [facility] Comment on above: Performed By: #### L 100.0100, L500.2500 ####[facility] [address] [place], [address] Hematocrit (Bld) [Volume fraction] 27.6 % Low 37-47 [facility] Comment on above: Performed By: #### L 100.0100, L500.2500 ####[facility] [address] [place], [address] Hemoglobin (Bld) [Mass/Vol] 8.7 g/dL Low 12.0-15.0 [facility] Comment on above: Performed By: #### L 100.0100, L500.2500 ####[facility] [address] [place], [address] IG% 1.400 High 0.0-0.9 [facility] Comment on above: Result Comment: IG% - Immature Granulocytes (promyelocytes, myelocytes andmetamyelocytes) > 1% indicates that a LEFT SHIFT is Present. Performed By: #### L 100.0100, L500.2500 ####[facility] [address] [place], [address] Lymphocytes/100 WBC (Bld) 22.6 % Normal 19-41 [facility] Comment on above: Performed By: #### L 100.0100, L500.2500 ####[facility] [address] [place], [address] MCH (RBC) [Entitic mass] 30.2 pg Normal 27.0-32.0 [facility] Comment on above: Performed By: #### L 100.0100, L500.2500 ####[facility] [address] [place], [address] MCHC (RBC) [Mass/Vol] 31.5 g/dL Low 32-36 [facility] Comment on above: Performed By: #### L 100.0100, L500.2500 ####[facility] [address] [place], [address] MCV (RBC) [Entitic vol] 95.8 fL Normal 81-99 [facility] Comment on above: Performed By: #### L 100.0100, L500.2500 ####[facility] [address] [place], [address] Monocytes/100 WBC (Bld) 11.5 % High 0-10 [facility] Comment on above: Performed By: #### L 100.0100, L500.2500 ####[facility] [address] [place], [address] Neutrophils/100 WBC (Bld) 57.7 % Normal 47-70 [facility] Comment on above: Performed By: #### L 100.0100, L500.2500 ####[facility] [address] [place], [address] Nucleated RBC (Bld) [#/Vol] 0 10*3/uL Normal 0-5 [facility] Comment on above: Performed By: #### L 100.0100, L500.2500 ####[facility] [address] [place], [address] Platelet mean volume (Bld) [Entitic vol] 9.4 fL Normal 6.2-12.0 [facility] Comment on above: Performed By: #### L 100.0100, L500.2500 ####[facility] [address] [place], [address] Platelets (Bld) [#/Vol] 362 10*3/uL Normal 150-450 [facility] Comment on above: Performed By: #### L 100.0100, L500.2500 ####[facility] [address] [place], [address] RBC (Bld) [#/Vol] 2.88 10*6/uL Low 4.2-5.4 [facility] Comment on above: Performed By: #### L 100.0100, L500.2500 ####[facility] [address] [place], [address] RDW SD 53.6 fl High 35.1-43.9 [facility] Comment on above: Performed By: #### L 100.0100, L500.2500 ####[facility] [address] [place], [address] WBC (Bld) [#/Vol] 5.8 10*3/uL Normal 4.4-11.[address] [facility] Comment on above: Performed By: #### L 100.0100, L500.2500 ####[facility] [address] [place], [address] Basic Metabolic Profile (BMP )on 07-05-2024 BUN Normal 7-18 [facility] Comment on above: Result Comment: Canc elled via OM: Order cancelled - Patient discharged Performed By: #### L 500.2500, L100.0100 ####[facility] [address] [place], [address] BUN/CRE Normal 10-20 [facility] Comment on above: Result Comment: Canc elled via OM: Order cancelled - Patient discharged Performed By: #### L 500.2500, L100.0100 ####[facility] [address] [place], [address] CA,Total Normal 8.5-10.1 [facility] Comment on above: Result Comment: Canc elled via OM: Order cancelled - Patient discharged Performed By: #### L 500.2500, L100.0100 ####[facility] [address] [place], [address] CL Normal 98-107 [facility] Comment on above: Result Comment: Canc elled via OM: Order cancelled - Patient discharged Performed By: #### L 500.2500, L100.0100 ####[facility] [address] [place], [address] CO2 Normal 21.0-32.0 [facility] Comment on above: Result Comment: Canc elled via OM: Order cancelled - Patient discharged Performed By: #### L 500.2500, L100.0100 ####[facility] [address] [place], [address] CREAT,SERUM Normal 0.55-1.02 [facility] Comment on above: Result Comment: Canc elled via OM: Order cancelled - Patient discharged Performed By: #### L 500.2500, L100.0100 ####[facility] [address] [place], [address] EST GFR Normal >60 [facility] Comment on above: Result Comment: Canc elled via OM: Order cancelled - Patient discharged Performed By: #### L 500.2500, L100.0100 ####[facility] [address] [place], [address] EST GFR - AA Normal >60 [facility] Comment on above: Result Comment: Canc elled via OM: Order cancelled - Patient discharged Performed By: #### L 500.2500, L100.0100 ####[facility] [address] [place], [address] GAP Normal 5-15 [facility] Comment on above: Result Comment: Canc elled via OM: Order cancelled - Patient discharged Performed By: #### L 500.2500, L100.0100 ####[facility] [address] [place], [address] GLU Normal 74-106 [facility] Comment on above: Result Comment: Canc elled via OM: Order cancelled - Patient discharged Performed By: #### L 500.2500, L100.0100 ####[facility] [address] [place], [address] Potassium Normal 3.5-5.1 [facility] Comment on above: Result Comment: Canc elled via OM: Order cancelled - Patient discharged Performed By: #### L 500.2500, L100.0100 ####[facility] [address] [place], [address] Basic Metabolic Profile (BMP) Normal 136-145 [facility] Comment on above: Result Comment: Canc elled via OM: Order cancelled - Patient discharged Performed By: #### L 500.2500, L100.0100 ####[facility] [address] [place], [address] CBC W/Diff, Automatedon 02-2 Absolute Neut Normal 2.0-7.7 [facility] Comment on above: Result Comment: Canc elled via OM: Order cancelled - Patient discharged Performed By: #### L 500.2500, L100.0100 ####[facility] [address] [place], [address] HCT Normal 37-47 [facility] Comment on above: Result Comment: Canc elled via OM: Order cancelled - Patient discharged Performed By: #### L 500.2500, L100.0100 ####[facility] [address] [place], [address] HGB Normal 12.0-15.0 [facility] Comment on above: Result Comment: Canc elled via OM: Order cancelled - Patient discharged Performed By: #### L 500.2500, L100.0100 ####[facility] [address] [place], [address] MCH Normal 27.0-32.0 [facility] Comment on above: Result Comment: Canc elled via OM: Order cancelled - Patient discharged Performed By: #### L 500.2500, L100.0100 ####[facility] [address] [place], [address] MCHC Normal 32-36 [facility] Comment on above: Result Comment: Canc elled via OM: Order cancelled - Patient discharged Performed By: #### L 500.2500, L100.0100 ####[facility] [address] [place], [address] MCV Normal 81-99 [facility] Comment on above: Result Comment: Canc elled via OM: Order cancelled - Patient discharged Performed By: #### L 500.2500, L100.0100 ####[facility] [address] [place], [address] NEUT% Normal 47-70 [facility] Comment on above: Result Comment: Canc elled via OM: Order cancelled - Patient discharged Performed By: #### L 500.2500, L100.0100 ####[facility] [address] [place], [address] PLT Normal 150-450 [facility] Comment on above: Result Comment: Canc elled via OM: Order cancelled - Patient discharged Performed By: #### L 500.2500, L100.0100 ####[facility] [address] [place], [address] RBC Normal 4.2-5.4 [facility] Comment on above: Result Comment: Canc elled via OM: Order cancelled - Patient discharged Performed By: #### L 500.2500, L100.0100 ####[facility] [address] [place], [address] RDW CV Normal 11.6-14.6 [facility] Comment on above: Result Comment: Canc elled via OM: Order cancelled - Patient discharged Performed By: #### L 500.2500, L100.0100 ####[facility] [address] [place], [address] RDW SD Normal 35.1-43.9 [facility] Comment on above: Result Comment: Canc elled via OM: Order cancelled - Patient discharged Performed By: #### L 500.2500, L100.0100 ####[facility] [address] [place], [address] WBC Normal 4.4-11.0 [facility] Comment on above: Result Comment: Canc elled via OM: Order cancelled - Patient discharged Performed By: #### L 500.2500, L100.0100 ####[facility] [address] [place], [address] Basic Metabolic Profile (BMP )on 07-01-2024 BUN/CRE 22.4 RATIO High 02-28 [facility] Comment on above: Performed By: #### L 100.0100, L500.2500 ####[facility] [address] [place], [address] CA,Total 9.4 mg/dL Normal 8.5-10.1 [facility] Comment on above: Performed By: #### L 100.0100, L500.2500 ####[facility] [address] [place], [address] Chloride [Moles/Vol] 100 mmol/L Normal 98-107 [facility] Comment on above: Performed By: #### L 100.0100, L500.2500 ####[facility] [address] [place], [address] CO2 [Moles/Vol] 29.0 mmol/L Normal 21.0-32.0 [facility] Comment on above: Performed By: #### L 100.0100, L500.2500 ####[facility] [address] [place], [address] Creatinine [Mass/Vol] 0.72 mg/dL Normal 0.55-1.02 [facility] Comment on above: Result Comment: The validity of the calculated GFR GFRAA in patients over70 years has not been determined. Clinical correlation isessential. Performed By: #### L 100.0100, L500.2500 ####[facility] [address] [place], [address] ECRCL 44.27 ml/min Normal [facility] Comment on above: Performed By: #### L 100.0100, L500.2500 ####[facility] [address] [place], [address] EST GFR - AA 99 mL/min Normal >60 [facility] Comment on above: Result Comment: Afri can Kyrgyz GFR Calc Performed By: #### L 100.0100, L500.2500 ####[facility] [address] [place], [address] GAP 8 Normal 5-15 [facility] Comment on above: Performed By: #### L 100.0100, L500.2500 ####[facility] [address] [place], [address] GFR/1.73 sq M.predicted among non-blacks MDRD (S/P/Bld) [Vol rate/Area] 82 mL/min/{1.73_m2} Normal >60 [facility] Comment on above: Result Comment: Non- GFR Calc Performed By: #### L 100.0100, L500.2500 ####[facility] [address] [place], [address] Glucose [Mass/Vol] 102 mg/dL Normal 74-[address] [facility] Comment on above: Result Comment: Fast ing Glucose result from 100 to 125 mg/dLsuggests IMPAIRED HOMEOSTASIS per A.D.A. criteria. Performed By: #### L 100.0100, L500.2500 ####[facility] [address] [place], [address] Potassium [Moles/Vol] 4.4 mmol/L Normal 3.5-5.1 [facility] Comment on above: Performed By: #### L 100.0100, L500.2500 ####[facility] [address] [place], [address] Sodium [Moles/Vol] 137 mmol/L Normal 136-[address] [facility] Comment on above: Performed By: #### L 100.0100, L500.2500 ####[facility] [address] [place], [address] Urea nitrogen [Mass/Vol] 16 mg/dL Normal 7-18 [facility] Comment on above: Performed By: #### L 100.0100, L500.2500 ####[facility] [address] [place], [address] CBC W/Diff, Automatedon 02-2 0-2025 Absolute Lymph 1.78 X10 3/uL Normal 0.83-4.51 [facility] Comment on above: Performed By: #### L 100.0100, L500.2500 ####[facility] [address] [place], [address] Absolute Neut 3.3 X10 3/uL Normal 2.0-7.7 [facility] Comment on above: Performed By: #### L 100.0100, L500.2500 ####[facility] [address] [place], [address] Basophils/100 WBC (Bld) 1.3 % High 0-1 [facility] Comment on above: Performed By: #### L 100.0100, L500.2500 ####[facility] [address] [place], [address] Eosinophils/100 WBC (Bld) 5.6 % High 0-5 [facility] Comment on above: Performed By: #### L 100.0100, L500.2500 ####[facility] [address] [place], [address] Erythrocyte distribution width (RBC) [Ratio] 14.4 % Normal 11.6-14.6 [facility] Comment on above: Performed By: #### L 100.0100, L500.2500 ####[facility] [address] [place], [address] Hematocrit (Bld) [Volume fraction] 33.4 % Low 37-47 [facility] Comment on above: Performed By: #### L 100.0100, L500.2500 ####[facility] [address] [place], [address] Hemoglobin (Bld) [Mass/Vol] 10.5 g/dL Low 12.0-15.0 [facility] Comment on above: Performed By: #### L 100.0100, L500.2500 ####[facility] [address] [place], [address] IG% 0.800 Normal 0.0-0.9 [facility] Comment on above: Result Comment: IG% - Immature Granulocytes (promyelocytes, myelocytes andmetamyelocytes) > 1% indicates that a LEFT SHIFT is Present. Performed By: #### L 100.0100, L500.2500 ####[facility] [address] [place], [address] Lymphocytes/100 WBC (Bld) 29.2 % Normal 19-41 [facility] Comment on above: Performed By: #### L 100.0100, L500.2500 ####[facility] [address] [place], [address] MCH (RBC) [Entitic mass] 29.6 pg Normal 27.0-32.0 [facility] Comment on above: Performed By: #### L 100.0100, L500.2500 ####[facility] [address] [place], [address] MCHC (RBC) [Mass/Vol] 31.4 g/dL Low 32-36 [facility] Comment on above: Performed By: #### L 100.0100, L500.2500 ####[facility] [address] [place], [address] MCV (RBC) [Entitic vol] 94.1 fL Normal 81-99 [facility] Comment on above: Performed By: #### L 100.0100, L500.2500 ####[facility] [address] [place], [address] Monocytes/100 WBC (Bld) 8.4 % Normal 0-10 [facility] Comment on above: Performed By: #### L 100.0100, L500.2500 ####[facility] [address] [place], [address] Neutrophils/100 WBC (Bld) 54.7 % Normal 47-70 [facility] Comment on above: Performed By: #### L 100.0100, L500.2500 ####[facility] [address] [place], [address] Nucleated RBC (Bld) [#/Vol] 0 10*3/uL Normal 0-5 [facility] Comment on above: Performed By: #### L 100.0100, L500.2500 ####[facility] [address] [place], [address] Platelet mean volume (Bld) [Entitic vol] 9.5 fL Normal 6.2-12.0 [facility] Comment on above: Performed By: #### L 100.0100, L500.2500 ####[facility] [address] [place], [address] Platelets (Bld) [#/Vol] 357 10*3/uL Normal 150-450 [facility] Comment on above: Performed By: #### L 100.0100, L500.2500 ####[facility] [address] [place], [address] RBC (Bld) [#/Vol] 3.55 10*6/uL Low 4.2-5.4 [facility] [place] Comment on above: Performed By: #### L 100.0100, L500.2500 ####[facility] [address] [place], [address] RDW SD 50.5 fl High 35.1-43.9 [facility] Comment on above: Performed By: #### L 100.0100, L500.2500 ####[facility] [address] [place], [address] WBC (Bld) [#/Vol] 6.1 10*3/uL Normal 4.4-11.[address] [facility] Comment on above: Performed By: #### L 100.0100, L500.2500 ####[facility] [address] [place], [address] Basic metabolic 2000 panelon 06-30-2024 Anion gap [Moles/Vol] 9 mmol/L Normal 8-15 [facility] Comment on above: Order Comment: Speci men Type: BLOOD SPECIMENOrdering Facility: [facility] Address: [address] [place] [address] Performed By: #### 2 4321-2 ####[facility] LABORATORYCLIA [id number] [place] [address] [place] Calcium [Mass/Vol] 8.7 mg/dL Normal 8.5-10.2 [facility] Comment on above: Order Comment: Speci men Type: BLOOD SPECIMENOrdering Facility: [facility] Address: [address] [place] [address] Performed By: #### 2 4321-2 ####[facility] LABORATORYCLIA [id number] [place] [address] [place] Chloride [Moles/Vol] 98 mmol/L Normal 98-107 [facility] Comment on above: Order Comment: Speci men Type: BLOOD SPECIMENOrdering Facility: [facility] Address: [address] [place] [address] Performed By: #### 2 4321-2 ####[facility] LABORATORYCLIA [id number] [place] [address] [place] CO2 [Moles/Vol] 29 mmol/L Normal 22-30 [facility] Comment on above: Order Comment: Speci men Type: BLOOD SPECIMENOrdering Facility: [facility] Address: [address] [place] [address] Performed By: #### 2 4321-2 ####[facility] LABORATORYCLIA [id number] [address] [place] Creatinine [Mass/Vol] 0.77 mg/dL Normal 0.58-0.96 [facility] Comment on above: Order Comment: Speci men Type: BLOOD SPECIMENOrdering Facility: [facility] Address: [address] [place] [address] Performed By: #### 2 4321-2 ####[facility]ORATORYCLIA [id number] [address] Creatinine and Glomerular filtration rate.predicted panel (S/P/Bld) 74 mL/min/1.73m??? Normal >=60 [facility] Comment on above: Order Comment: Speci men Type: BLOOD SPECIMENOrdering Facility: [facility] Address: [address] [place] [address] Result Comment: Michael mated Glomerular Filtration Rate (eGFR) is calculated using the 2020 CKD-EPI creatinine equation. This equation utilizes serum creatinine, sex, and age as parameters. The creatinine assay has traceable calibration to isotope dilution-mass spectrometry. Refer to KDIGO guidelines for clinical interpretation. In patients with unstable renal function, e.g. those with acute kidney injury, the eGFR may not accurately reflect actual GFR. Performed By: #### 2 4321-2 ####[facility]ORATORYCLIA [id number] [place] [address] [place] Glucose [Mass/Vol] 97 mg/dL Normal 74-99 [facility] Comment on above: Order Comment: Speci men Type: BLOOD SPECIMENOrdering Facility: [facility] Address: [address] [place] [address] Result Comment: The [place] Diabetes Association (ADA) provides guidance for cutoff values for fasting glucose and random glucose. The ADA defines fasting as no caloric intake for at least 8 hours. Fasting plasma glucose results between 100 to 125 mg/dL indicate increased risk for diabetes (prediabetes). Fasting plasma glucose results greater than or equal to 126 mg/dL meet the criteria for diagnosis of diabetes. In the absence of unequivocal hyperglycemia, results should be confirmed by repeat testing. In a patient with classic symptoms of hyperglycemia or hyperglycemic crisis, random plasma glucose results greater than or equal to 200 mg/dL meet the criteria for diagnosis of diabetes. Reference: Standards of Medical Care in Diabetes 2016, [place] [employer] Association. Diabetes Care. 2016.39(Suppl 1). Performed By: #### 2 4321-2 ####[facility]ORATORYCLIA [id number] [place] [address] [place] Potassium [Moles/Vol] 4.4 mmol/L Normal 3.7-5.1 [facility] Comment on above: Order Comment: Jeanettei men Type: BLOOD SPECIMENOrdering Facility: [facility] Address: [address] [id number] Performed By: #### 2 4321-2 ####[facility]ORATORYCLIA [id number] [place] [address] [place] Sodium [Moles/Vol] 136 mmol/L Normal 136-144 [facility] Comment on above: Order Comment: Speci men Type: BLOOD SPECIMENOrdering Facility: [facility] Address: [address] [place] [address] Performed By: #### 2 4321-2 ####[facility]ORATORYCLIA [id number] [address] [place] [facility] Urea nitrogen [Mass/Vol] 19 mg/dL Normal 7-21 [facility] Comment on above: Order Comment: Speci men Type: BLOOD SPECIMENOrdering Facility: [facility] Address: [address] [place] [address] Performed By: #### 2 4321-2 ####[facility]ORATORYCLIA [id number] [address] CBC panel Auto (Bld)on 06-30 Erythrocyte distribution width (RBC) [Ratio] 14.6 % Normal 11.5-15.0 [facility] Comment on above: Order Comment: Speci men Type: BLOOD SPECIMENOrdering Facility: [facility] Address: [address] [place] [address] Performed By: #### 5 8410-2 ####[facility]ORATORYCLIA [id number] [address] [place] [facility] Hematocrit (Bld) [Volume fraction] 31.1 % Low 36.0-46.0 [facility] Comment on above: Order Comment: Speci men Type: BLOOD SPECIMENOrdering Facility: [facility] Address: [address] [place] [address] Performed By: #### 5 8410-2 ####[facility]ORATORYCLIA [id number] [address] Hemoglobin (Bld) [Mass/Vol] 10.0 g/dL Low 11.5-15.5 [facility] Comment on above: Order Comment: Speci men Type: BLOOD SPECIMENOrdering Facility: [facility] Address: [address] [place] [address] Performed By: #### 5 8410-2 ####[facility]ORATORYCLIA [id number] [address] [place] [facility] MCH (RBC) [Entitic mass] 30.5 pg Normal 26.0-34.0 [facility] Comment on above: Order Comment: Speci men Type: BLOOD SPECIMENOrdering Facility: [facility] Address: [address] [place] [address] Performed By: #### 5 8410-2 ####[facility]ORATORYCLIA [id number] [address] OF [facility] MCHC (RBC) [Mass/Vol] 32.2 g/dL Normal 30.5-36.0 [facility] Comment on above: Order Comment: Speci men Type: BLOOD SPECIMENOrdering Facility: [facility] Address: [address] [place] [address] Performed By: #### 5 8410-2 ####[facility]ORATORYCLIA [id number] [address] STATES OF [facility] MCV (RBC) [Entitic vol] 94.8 fL Normal 80.0-100.0 [facility] Comment on above: Order Comment: Speci men Type: BLOOD SPECIMENOrdering Facility: [facility] Address: [address] [place] [address] Performed By: #### 5 8410-2 ####[facility]ORATORYCLIA [id number] [address] Nucleated RBC (Bld) [#/Vol] 10*3/uL Normal <0.01 [facility] Comment on above: Order Comment: Speci men Type: BLOOD SPECIMENOrdering Facility: [facility] Address: [address] [place] [address] Performed By: #### 5 8410-2 ####[facility]ORATORYCLIA [id number] [address] Platelet mean volume (Bld) [Entitic vol] 9.5 fL Normal 9.0-12.7 [facility] Comment on above: Order Comment: Speci men Type: BLOOD SPECIMENOrdering Facility: [facility] Address: [address] [place] [address] Performed By: #### 5 8410-2 ####[facility]ORATORYCLIA [id number] [address] Platelets (Bld) [#/Vol] 265 10*3/uL Normal 150-400 [facility] Comment on above: Order Comment: Christopher hurd Type: BLOOD SPECIMENOrdering Facility: [facility] Address: [address] [place] [address] Performed By: #### 5 8410-2 ####[facility]ORATORYCLIA [id number] [address] RBC (Bld) [#/Vol] 3.28 10*6/uL Low 3.90-5.20 [facility] Comment on above: Order Comment: Christopher men Type: BLOOD SPECIMENOrdering Facility: [facility] Address: [address] [place] [address] Performed By: #### 5 8410-2 ####[facility]ATORYCLIA [id number] [address] WBC (Bld) [#/Vol] 5.07 10*3/uL Normal 3.70-11.00 [facility] Comment on above: Order Comment: Christopher hurd Type: BLOOD SPECIMENOrdering Facility: [facility] Address: [address] [place] [address] Performed By: #### 5 8410-2 ####[facility]ORATORYCLIA [id number] [address] CNDSon 06-30-2024 CNDS HNO ID: [id number] Author: WALLY ZIEGLER MD Service: General Surgery Author Type: Nurse Practitioner Type: Discharge Summary Filed: 07/06/2024 15:47 Note Text: Attestation signed by Wally Ziegler MD at 07/06/2024 3:47 PM Attending Note The patient is appropriate for discharge on 06/30/2024 The [facility], acting on behalf of the attending physician, has completed the xebb-or-dbde portion of the patient discharge encounter. Wally Ziegler MD Delayed entry DISCHARGE SUMMARY PATIENT NAME: Joyce Solomon Code Status: DNR-CCA, DNI Highest Readmission Risk Score: 20 The 30 day readmissions risk score is derived from an internally validated risk model which evaluates patient level characteristics, utilization history, medication orders and lab results up until the day of discharge. Patients with a score of 40 or above are considered highest risk for readmission. Specific patient level drivers will be listed at the bottom of the summary. Admission Information Admission Information ADMIT DATE: 06/26/2024 DISCHARGE DATE: 06/30/2024 MY DOCTORS AND MEDICAL TEAM: My Main Hospital Doctor: Wally Ziegler MD Primary Care Provider: Bridget Swenson MD My Medical Team Members: Treatment Team: Attending Provider: Wally Ziegler MD MY CONDITION AT DISCHARGE: Stable REASON I WAS IN THE HOSPITAL: Evaluation and treatment of injuries sustained following a fall SUMMARY OF WHAT HAPPENED WHILE I WAS IN THE HOSPITAL: Joyce Solomon is an 89-year old female who presented to [place] ED on 06/26/24 following a fall. Patient lost her balance and fell onto her left side. She denied head strike or loss of consciousness. Of note, patient has had multiple falls within the last month which resulted in her anticoagulation being held. Imaging obtained and showed: 1. Acute fracture deformities of the right L1, L2 transverse processes. 2. Acute nondisplaced left 1st rib fracture. Acute nondisplaced left anterior 3rd-8th rib fractures. 3. Acute, mildly comminuted and angulated fracture of the right mid 5th metatarsal. 4. Prior cement augmentation of the L2, L3 vertebral bodies with mild retropulsion of the vertebral body fragments into the spinal canal resulting in moderate central canal narrowing. Given the above findings, patient was transferred to [facility] for further trauma evaluation. Patient's rib fractures were treated non-operatively, with multimodal pain control, and aggressive pulmonary hygiene. A repeat chest x-ray showed no acute process. A CTA head/neck showed no vascular injury. Her respiratory status remained stable throughout her hospitalization. Podiatry was consulted for patient's right 5th metatarsal fracture. They recommended operative intervention, however, patient elected to pursue medical management given age, comorbidities, and polytrauma. They recommended a post-operative shoe/weightbearing as tolerated while ambulating on the right foot and to wear an vikash wrap during the during/remove at night. Neurosurgery was consulted regarding patient's previous L2-3 compression fractures s/p kyphoplasty with elements of retropulsion. A MRI of her lumbar spine showed no compromising neural compression or instability. They recommended non-operative management and a LSO brace for comfort. Patient's right L1, L2 transverse process fractures were treated non-operatively and with multimodal pain control. No further intervention was warranted. PT/OT evaluated the patient and recommended acute rehab placement. On 06/30/24, patient was evaluated by trauma surgery and deemed medically stable to discharge to TCU. Patient is to follow-up with her PCP and podiatry in 2 weeks. She can follow-up with neurosurgery as needed. OTHER PROBLEMS/DIAGNOSIS: Principal Problem: Closed fracture of multiple ribs of left side Active Problems: Closed nondisplaced fracture of fifth right metatarsal bone Closed fracture of transverse process of lumbar vertebra (HCC) Ground-level fall Status post kyphoplasty Closed compression fracture of second lumbar vertebra (HCC) Acute pain due to trauma Acute respiratory insufficiency At risk for delirium Frailty syndrome in geriatric patient Resolved Problems: * No resolved hospital problems. * OPERATIONS PERFORMED WHILE IN THE HOSPITAL: None IMPORTANT TEST/PROCEDURES: No procedures performed TEST RESULTS NOT AVAILABLE AT THIS TIME: No pending results Discharge Disposition Discharge Disposition: Penitentiary Facility - Less than 30 Days Activity When You Leave the Hospital Lifting is restricted to: No heavy lifting (>10 pounds) or strenuous exercise x 6 weeks Limited to: Weightbearing as tolerated with post-operative boot to right lo (more content not included)... Normal [facility] THERAPY NTon 06-30-2024 THERAPY NT HNO ID: [id number] Author: RAUDEL SAPP, PT Service: Physical Therapy Author Type: Physical Therapist Type: Therapy (PT/OT/Speech/Resp) Filed: 06/30/2024 16:09 Note Text: Physical Therapy Treatment Summary SERVICE DATE: 06/30/2024 SERVICE TIME: 1522 to 1545 ROOM: [place] [address] PT 6 Clicks Score: 17 DISCHARGE RECOMMENDATIONS Acute Rehab Recommended Discharge Disposition Comments: Patient well below baseline with no assistance at home, recommend Acute Rehab at discharge to optimize strength and functional independence. Patient would tolerate 3 hours of combined therapies daily Recommended Discharge Disposition Due to: Patient requires active, intensive rehabilitation by multiple therapy disciplines. Anticipate the patient will tolerate 3 hours of therapy per day., Functional deficits requiring ongoing therapy service prior to discharge home., Functional status decline, Motor planning deficits ASSESSMENT Response to Therapy Interventions: Good Participation in Activities, Pain, Requires Additional Time to Complete Activities Patient progressing well towards goals, improving ambulation distance and overall tolerance this date. Patient highly motivated to work with PT and regain functional independence despite elevated pain levels. Patient remains appropriate for Acute Rehab at discharge to optimize strength and functional independence. PRECAUTIONS Fall Risk, Weight Bearing Restrictions, Spine, Brace LSO for comfort Right Lower Extremity Weight Bearing Status: WBAT (in post op shoe) CURRENT HOSPITAL COURSE 89 y.o female admitted for fall, recently discharged from [facility] following another fall, found to have R 5th metatarsal fx, R L1 and L2 t.p fx, L 1,3-8 rib fx, chronic 8-10 rib fx, and age indeterminate R 8-10 rib fx, L2-L3 retropulsion of vertebral body, LSO for comfort, WBAT RLE in post op shoe Relevant Past Medical History: HTN, HLD, pAF on warfarin, NEL, osteoporosis, secondary hypothyroidism, L2-3 comp fx s/p kyphoplasty HOME LIVING Patient Lives With: Self/Alone Assistance Available: PRN (neighbors, family) Entry To Home: Stairs, With Rail Number Of Stairs Into Home: 3 Number Of Stairs To Bed/Bath: 0 Tub/Shower Type: walk in shower with built in seat and grab bars Laundry: patient normally completes Equipment Owned: Elevated Toilet Seat, Grab Bars- Shower, Grab Bars- Toilet, Rollator, Shower Chair, Walker- Wheeled, Wheelchair- Manual, Hand Held Shower, Sock Aid, Cane PRIOR FUNCTIONAL LEVEL Within Functional Limits Patient reported prior to last fall and admission to [facility] was independent with mobility, using rollator, recently discharged home from [facility], living home alone with assist from family and friends for IADLs as needed, was about to start Home PT, OT, ST SUBJECTIVE Patient pleasant and agreeable to PT session THERAPY DIAGNOSIS Reduced mobility-other, Muscle Weakness (generalized), Unsteadiness on feet, General symptoms and signs-other TREATMENT INTERVENTIONS Therapeutic Exercise (52610), Therapeutic Activity (35715), Gait Training (68960) Therapeutic Exercise (78292) Treatment Minutes: 10 $ Therapeutic Exercise (57747) Billed Units: 1 unit Exercise Ankle Pumps (number of reps): 10 Quad Sets (number of reps): 10 Glut Sets (number of reps): 10 LAQ (number of reps): 10 BLE Hip Abduction (number of reps): 10 BLE Exercise: hip adduction squeezes x10, seated hip flexion x10 BLE Therapeutic Activity (99925) Treatment Minutes: 4 $ Therapeutic Activity (91833) Billed Units: 0 units Cues/assist with transfers, further education on spine precautions and assist to don/doff LSO brace for ambulation. Feet elevated in recliner at end of session with call light on lap. Gait Training (18778) Treatment Minutes: 9 $ Gait Training (20044) Billed Units: 1 unit Cues/assist with ambulation as listed in grid below. Slower antalgic gait, intermittent carry over with cues, min assist for balance. Timed Code Treatment (minutes): 23 Skilled Treatment Time (minutes): 23 TRAINING AND EDUCATION PROVIDED Assistive Device Use, Benefits of In-Hospital Mobility, Discharge Planning, Energy Conservation, Expected Functional Level, Falls Prevention, Gait Pattern, Reduction of Deviations, Positioning, Precautions/Restrict ions, Role of Physical Therapy, Standing Balance, Transfers, Exercise Program THERAPEUTIC SKILLS USED Activity Dosing, Cues for Sequencing/Proper Technique for Activity, Cuing Tactile, Cuing Verbal, Movement Facilitation, Physical Assist, Postural Alignment Correction FUNCTIONAL STATUS mobility performed during session in bold, other mobility completed during prior session and may no longer be correct or appropriate to complete. Bed Mobility Scooting: Contact Guard Assistance Transfers Sit To Stand: Minimal Assistance, Additional Information cues for hand placement, power through LE, tuck bottom to stand tall, increased t (more content not included)... Normal [facility] THERAPY NT HNO ID: [id number] Author: JOSE ANGEL BELTRAN CCC-PLASTICS AND COMPOSITES INSPECTOR Service: Speech/Swallow Author Type: Speech Language Pathologist Type: Therapy (PT/OT/Speech/Resp) Filed: 06/30/2024 10:38 Note Text: Speech Therapy Clinical Swallow Evaluation SERVICE DATE: 06/30/2024 SERVICE TIME: 0955 to 1010 ROOM: [place] [address] IMPRESSION Functional oropharyngeal phases of swallowing: without identified risk for aspiration RECOMMENDATIONS Diet Recommendations Regular Consistency Thin Liquids IDDSI Level 0 Swallow Strategy Recommendations Alternate bites and sips Feed / Eat at a slow rate Sit upright 90 degrees for all PO Small Bite/Sip Nursing Recommendations Reinforce use of swallowing strategies Response to Therapy Interventions: Good participation in activities DISCHARGE RECOMMENDATIONS Recommended Discharge Disposition: Acute Rehab Recommended Discharge Disposition Comments: for PT and OT Speech Rehab Potential: Good CURRENT HOSPITAL COURSE Patient admitted on 06/26 for Fall. 06/27 XR chest: New right basilar parenchymal changes as described above. Reason for Speech Therapy Consult: Possible dysphagia: assess swallowing Relevant Past Medical History: Depression, Mitral valve prolapse, NEL, Thryoid disorder HOME ENVIRONMENT / PRIOR FUNCTIONAL LEVEL Prior Functional Level: Within Functional Limits Patient Lives With: Self/Alone Assistance Available: PRN Prior Swallowing Function/Diet Textures: Regular Consistency, Thin Liquids IDDSI Level 0 SUBJECTIVE Patient alert and able to participate in therapy, reports dysphagia with pills occassionally. Multiple food allergies. THERAPY DIAGNOSIS No Skilled Need TREATMENT INTERVENTIONS $ Clinical Swallow Evaluation (42453) Billed Units: 1 unit Clinical Swallow Evaluation (01777) Skilled Treatment Time (minutes): 15 TRAINING AND EDUCATION PROVIDED IN Swallowing Strategies, Dysphagia Management, Dietary Consistencies THERAPEUTIC SKILLS USED Verbal cuing, Discharge planning, Education on role of discipline / importance of activity OBJECTIVE Current Status Oral Hygiene: Clear, moist oral cavity, Oral Health Assessment Tool (OHAT) Dentition: Retains Natural Dentition Current Feeding Method: Oral Current Diet Textures: Regular Consistency, Thin Liquids IDDSI Level 0 Current Level Of Communication: Verbal Current Management Of Secretions: Able to expectorate adequately Oral Motor Exam: Within Functional Limits ORAL HEALTH ASSESSMENT TOOL Lips: 0 Tongue: 0 Gums and Tissues: 0 Saliva: 0 Natural Teeth: 0 Dentures: N/A Oral Cleanliness: 0 Dental Pain: 0 OHAT Total Score: 0 SWALLOW ASSESSMENT Position Of Patient During Assessment: Upright In Chair Feeding Method: Patient Self-Fed Consistencies Presented: Thin Liquids IDDSI Level 0, Solid Compensatory Strategies Utilized During Assessment: Alternate bites and sips, Feed / Eat at a slow rate, Sit upright 90 degrees for all PO, Small Bite/Sip -Patient alert, up in chair on PLASTICS AND COMPOSITES INSPECTOR arrival, agreeable to evaluation -Able to feed self -Mastication timely for solids -No oral residuals post swallow -Laryngeal movement detected upon palpation of swallow -No cough, throat clear, or change in vocal quality with po trials -Completed 3 oz water challenge with no cough, throat clear, or change in vocal quality -Educated on alternating bites with sips especially when taking pills -Oropharyngeal swallow function appears clinically WFL at this time -Recommend diet and strategies as above -Cannot rule out aspiration with clinical assessment only, if further concern, recommend instrumental assessment -Will sign off, please re-consult if change in Patient status Patient /Caregiver Goals: Go to Rehab PLAN ST Frequency: Discontinue Therapy Services Reasons Inpatient Therapy Services Discontinued: Patient appears safe and appropriate re: communication, cognition, and swallow function with the ability to return to a baseline level of function Plan of Care Developed with: Patient SIGNATURE: Jose Angel Beltran CCC-PLASTICS AND COMPOSITES INSPECTOR PATIENT NAME: Joyce Solomon DATE: June 30, 2024 TIME: 10:36 AM Normal [facility] Basic metabolic 2000 panelon 06-29-2024 Anion gap [Moles/Vol] 10 mmol/L Normal 8-15 [facility] Comment on above: Order Comment: Speci men Type: BLOOD SPECIMENOrdering Facility: [facility] Address: [address] [place] [address] Performed By: #### 1 9123-9, 61602-1 ####[facility] LABORATORYCLIA [id number] [place] [address] [place] Calcium [Mass/Vol] 8.7 mg/dL Normal 8.5-10.2 [facility] Comment on above: Order Comment: Speci men Type: BLOOD SPECIMENOrdering Facility: [facility] Address: [address] [place] [address] Performed By: #### 1 9123-9, 60608-5 ####[facility] LABORATORYCLIA [id number] [address] [place] Chloride [Moles/Vol] 97 mmol/L Low 98-107 [facility] Comment on above: Order Comment: Speci men Type: BLOOD SPECIMENOrdering Facility: [facility] Address: [address] [place] [address] Performed By: #### 1 9123-9, 16050-6 ####[facility] LABORATORYCLIA [id number] [place] [id number] [place] [place] CO2 [Moles/Vol] 28 mmol/L Normal 22-30 [facility] Comment on above: Order Comment: Speci men Type: BLOOD SPECIMENOrdering Facility: [facility] Address: [address] [place] [address] Performed By: #### 1 9123-9, 14189-1 ####[facility] LABORATORYCLIA [id number] [address] Creatinine [Mass/Vol] 0.78 mg/dL Normal 0.58-0.96 [facility] Comment on above: Order Comment: Speci men Type: BLOOD SPECIMENOrdering Facility: [facility] Address: [address] [place] [address] Performed By: #### 1 9123-9, 66358-9 ####[facility] LABORATORYCLIA [id number] [address] Creatinine and Glomerular filtration rate.predicted panel (S/P/Bld) 73 mL/min/1.73m??? Normal >=60 [facility] Comment on above: Order Comment: Speci men Type: BLOOD SPECIMENOrdering Facility: [facility] Address: [address] [place] [address] Result Comment: Michael mated Glomerular Filtration Rate (eGFR) is calculated using the 2020 CKD-EPI creatinine equation. This equation utilizes serum creatinine, sex, and age as parameters. The creatinine assay has traceable calibration to isotope dilution-mass spectrometry. Refer to KDIGO guidelines for clinical interpretation. In patients with unstable renal function, e.g. those with acute kidney injury, the eGFR may not accurately reflect actual GFR. Performed By: #### 1 9123-9, 94481-6 ####[facility] LABORATORYCLIA [id number] [place] [address] [place] Glucose [Mass/Vol] 99 mg/dL Normal 74-99 [facility] Comment on above: Order Comment: Christopher hurd Type: BLOOD SPECIMENOrdering Facility: [facility] Address: [address] [place] [address] Result Comment: The [place] Diabetes [employer] (ADA) provides guidance for cutoff values for fasting glucose and random glucose. The ADA defines fasting as no caloric intake for at least 8 hours. Fasting plasma glucose results between 100 to 125 mg/dL indicate increased risk for diabetes (prediabetes). Fasting plasma glucose results greater than or equal to 126 mg/dL meet the criteria for diagnosis of diabetes. In the absence of unequivocal hyperglycemia, results should be confirmed by repeat testing. In a patient with classic symptoms of hyperglycemia or hyperglycemic crisis, random plasma glucose results greater than or equal to 200 mg/dL meet the criteria for diagnosis of diabetes. Reference: Standards of Medical Care in Diabetes 2016, [place] [employer] Association. Diabetes Care. 2016.39(Suppl 1). Performed By: #### 1 9123-9, 24829-1 ####[facility]ORATORYCLIA [id number] [place] [address] [place] Potassium [Moles/Vol] 4.0 mmol/L Normal 3.7-5.1 [facility] Comment on above: Order Comment: Christopher hurd Type: BLOOD SPECIMENOrdering Facility: [facility] Address: [address] [place] [address] Performed By: #### 1 9123-9, 86076-8 ####[facility] LABORATORYCLIA [id number] [place] [address] [place] Sodium [Moles/Vol] 135 mmol/L Low 136-144 [facility] Comment on above: Order Comment: Christopher hurd Type: BLOOD SPECIMENOrdering Facility: [facility] Address: [address] [place], [place] [address] Performed By: #### 1 9123-9, 52918-8 ####[facility] LABORATORYCLIA [id number] [address] [place] Urea nitrogen [Mass/Vol] 17 mg/dL Normal 7-21 [facility] Comment on above: Order Comment: Speci men Type: BLOOD SPECIMENOrdering Facility: [facility] Address: [address] [place] [address] Performed By: #### 1 9123-9, 55078-5 ####[facility] LABORATORYCLIA [id number] [address] STATES OF [facility] CBC panel Auto (Bld)on 06-29 Erythrocyte distribution width (RBC) [Ratio] 14.6 % Normal 11.5-15.0 [facility] Comment on above: Order Comment: Speci men Type: BLOOD SPECIMENOrdering Facility: [facility] Address: [address] [place] [address] Performed By: #### 5 8410-2 ####[facility] LABORATORYCLIA [id number] [address] [place] Hematocrit (Bld) [Volume fraction] 29.4 % Low 36.0-46.0 [facility] Comment on above: Order Comment: Speci men Type: BLOOD SPECIMENOrdering Facility: [facility] Address: [address] [place] [address] Performed By: #### 5 8410-2 ####[facility] LABORATORYCLIA [id number] [address] [place] Hemoglobin (Bld) [Mass/Vol] 9.5 g/dL Low 11.5-15.5 [facility] Comment on above: Order Comment: Speci men Type: BLOOD SPECIMENOrdering Facility: [facility] Address: [address] [place] [address] Performed By: #### 5 8410-2 ####[facility] LABORATORYCLIA [id number] [address] [place] MCH (RBC) [Entitic mass] 30.4 pg Normal 26.0-34.0 [facility] Comment on above: Order Comment: Speci men Type: BLOOD SPECIMENOrdering Facility: [facility] Address: [address] [place] [address] Performed By: #### 5 8410-2 ####[facility] LABORATORYCLIA [id number] [address] STATES [facility] MCHC (RBC) [Mass/Vol] 32.3 g/dL Normal 30.5-36.0 [facility] Comment on above: Order Comment: Speci men Type: BLOOD SPECIMENOrdering Facility: [facility] Address: [address] [place] [address] Performed By: #### 5 8410-2 ####[facility] LABORATORYCLIA [id number] [address] STATES OF [facility] MCV (RBC) [Entitic vol] 93.9 fL Normal 80.0-100.0 [facility] Comment on above: Order Comment: Speci men Type: BLOOD SPECIMENOrdering Facility: [facility] Address: [address] [place] [address] Performed By: #### 5 8410-2 ####[facility] LABORATORYCLIA [id number] [address] Nucleated RBC (Bld) [#/Vol] 10*3/uL Normal <0.01 [facility] Comment on above: Order Comment: Speci men Type: BLOOD SPECIMENOrdering Facility: [facility] Address: [address] [place] [address] Performed By: #### 5 8410-2 ####[facility]ORATORYCLIA [id number] [address] Platelet mean volume (Bld) [Entitic vol] 9.4 fL Normal 9.0-12.7 [facility] Comment on above: Order Comment: Speci men Type: BLOOD SPECIMENOrdering Facility: [facility] Address: [address] [place] [address] Performed By: #### 5 8410-2 ####[facility]ORATORYCLIA [id number] [place] [address] [place] Platelets (Bld) [#/Vol] 262 10*3/uL Normal 150-400 [facility] Comment on above: Order Comment: Speci men Type: BLOOD SPECIMENOrdering Facility: [facility] Address: [address] [place] [address] Performed By: #### 5 8410-2 ####[facility] LABORATORYCLIA [id number] [place] [address] [place] RBC (Bld) [#/Vol] 3.13 10*6/uL Low 3.90-5.20 [facility] Comment on above: Order Comment: Speci men Type: BLOOD SPECIMENOrdering Facility: [facility] Address: [address] [place] [address] Performed By: #### 5 8410-2 ####[facility] LABORATORYCLIA [id number] [address] WBC (Bld) [#/Vol] 7.38 10*3/uL Normal 3.70-11.00 [facility] Comment on above: Order Comment: Speci men Type: BLOOD SPECIMENOrdering Facility: [facility] Address: [address] [place] [address] Performed By: #### 5 8410-2 ####[facility] LABORATORYCLIA [id number] [address] Magnesium SerPl-mCncon 06-29 Magnesium [Mass/Vol] 2.2 mg/dL Normal 1.7-2.3 [facility] Comment on above: Order Comment: Speci men Type: BLOOD SPECIMENOrdering Facility: [facility] Address: [address] [place] [address] Performed By: #### 1 9123-9, 34094-2 ####[facility] LABORATORYCLIA [id number] [address] [place] NUTRITIONon 06-29-2024 NUTRITION HNO ID: [id number] Author: ROSEMARY GÓMEZ RD Service: Nutrition Therapy Author Type: Registered Dietitian Type: Nutrition Filed: 06/29/2024 15:08 Note Text: NUTRITION THERAPY INITIAL ASSESSMENT SERVICE DATE: 06/29/2024 SERVICE TIME: 12:35 pm Nutrition Assessment: Recommended Malnutrition Diagnosis: Mild Protein-Calorie Malnutrition In the context of: Social/Environmental Circumstance Based on: Insufficient Energy Intake Nutrition Diagnosis: Problem: Suboptimal oral intake Related to: Anorexia As evidenced by: Patient/family self-report, Food/nutrition related history Care Plan: Continue gluten free diet. Please document and encourage intakes at mealtimes. Continue current diet 2. Added Supplements: Magic Cup Monitor and Evaluation: Meet greater than 75% of estimated needs HPI: This is an 89 year old female admitted with History of rib fracture [Z87.81] Her past medical history includes: PAST MEDICAL HISTORY Diagnosis Date Abdominal pain, unspecified site Abdominal pain, unspecified site Depression Dyslipidemia Flatulence, eructation, and gas pain Fracture L shoulder (2007), Sacral stress fracture; R wrist Hypertension Mitral valve prolapse Obstructive sleep apnea Osteoporosis, unspecified 01/30/2005 Other symptoms involving digestive system(787.99) PAF (paroxysmal atrial fibrillation) [facility]) 10/20/2013 Thyroid disorder Intake History: Nutrition Intake Prior to Admission: Less than 75% estimated energy needs greater than or equal to 3 months Current Nutrition Intake: Less than 75% estimated energy needs Current Intake Over time: (2 days) Dosing Weight: 75.8 kg (167 lb 1.7 oz) Dosing Weight Type: Admit weight Estimated kilocalorie needs: 1500 - 1900 kcals Calorie Calculation Method: 20-25 kcals/kg Estimated protein needs (grams): 55 - 73 g Grams protein determined by: 1.2 - 1.5 g/kg, Spring body weight Diet Orders (From admission, onward) Start Ordered 06/29/24 1415 DIET SUPPLEMENTS START NOW Question Answer Comment Supplement 1 MAGIC CUP VANILLA Supplement 1 Frequency DINNER Supplement 2 MAGIC CUP CHOCOLATE Supplement 2 Frequency LUNCH 06/29/24 1410 06/27/24 0949 DIET GASTRO INTESTINAL START NOW Question: Gastro Intestinal Answer: GLUTEN CONTROLLED 06/27/24 0948 Anthropometrics: Height: 152.4 cm (5') Weight: 76.2 kg (168 lb) Usual Weight: 72.6 kg (160 lb) Weighed this in March, per Care Everywhere. Patient reports weight has been stable for about a year Usual Weight Obtained From: Care Everywhere (and patient) Body mass index is 32.81 kg/m?. Weight change percentage over time: Grossly stable though note LE edema potentially masking loss Weight Change: Stable weight(s) Weight history: Date: Wt: 06/26/2024 76.2 kg (168 lb) 06/15/2024 73.5 kg (162 lb) 05/11/2024 73.7 kg (162 lb 7.7 oz) Per Care Everywhere: 72.6 kg 04/07/24 Physical Exam: Subcutaneous fat loss: No Subcutaneous Fat Loss Muscle loss: No Muscle Loss Potential micronutrient deficiency: No deficiency identified Edema/Ascites: Lower extremities Lower Extremity: Non-pitting GI Symptoms: Anorexia, Hypogeusia/dysgeusia , Early satiety Stool Amount: Decreased (no BM since admission) Functional Status: Unable to assess Potential Signs of Inflammation: Chronic condition, Hypoalbuminemia HTN MNT Billing: $ Initial Assessment: 1-15 minutes SIGNATURE: Rosemary Gómez RD PATIENT NAME: Joyce Solomon DATE: June 29, 2024 TIME: 3:04 PM Normal [facility] THERAPY NTon 06-29-2024 THERAPY NT HNO ID: [id number] Author: SAMIA HENRY OTR/L Service: Occupational Therapy Author Type: Occupational Therapist Type: Therapy (PT/OT/Speech/Resp) Filed: 06/29/2024 14:06 Note Text: Occupational Therapy Evaluation Summary SERVICE DATE: 06/29/2024 SERVICE TIME: 1330 to 1356 ROOM: [id number] 6 Clicks Score: 14 DISCHARGE RECOMMENDATIONS Acute Rehab Recommended Discharge Disposition Comments: Pt has the motivation, endurance and appropriate cognition for acute, intensive therapies. Recommended Discharge Disposition Due to: Patient requires active, intensive rehabilitation by multiple therapy disciplines. Anticipate the patient will tolerate 3 hours of therapy per day., ADL impairment, Requires multiple therapy disciplines, Anticipated community discharge ASSESSMENT Response to Therapy Interventions: Good Participation in Activities, Pain Facilitated functional transfer to/from bathroom with wheeled walker, providing cues for walker safety throughout. Requires min assist to manage wheeled walker. Reinforced precautions throughout session. Pt motivated to ambulate in hallway, and physical assist was provided PRN as well as verbal cues for safety throughout activity. Reinforced energy conservation to maximize overall activity tolerance. Pt is motivated to regain independence. Will benefit from acute rehab at discharge. PRECAUTIONS Fall Risk, Weight Bearing Restrictions, Spine, Brace LSO for comfort Right Lower Extremity Weight Bearing Status: WBAT (in post op shoe) CURRENT HOSPITAL COURSE 89 y.o female admitted for fall, recently discharged from [facility] following another fall, found to have R 5th metatarsal fx, R L1 and L2 t.p fx, L 1,3-8 rib fx, chronic 8-10 rib fx, and age indeterminate R 8-10 rib fx, L2-L3 retropulsion of vertebral body, LSO for comfort, WBAT RLE in post op shoe Relevant Past Medical History: HTN, HLD, pAF on warfarin, NEL, osteoporosis, secondary hypothyroidism, L2-3 comp fx s/p kyphoplasty HOME LIVING Patient Lives With: Self/Alone Assistance Available: PRN (neighbors, family) Entry To Home: Stairs, With Rail Number Of Stairs Into Home: 3 Number Of Stairs To Bed/Bath: 0 Tub/Shower Type: walk in shower with built in seat and grab bars Laundry: patient normally completes Equipment Owned: Elevated Toilet Seat, Grab Bars- Shower, Grab Bars- Toilet, Rollator, Shower Chair, Walker- Wheeled, Wheelchair- Manual, Hand Held Shower, Sock Aid, Cane PRIOR FUNCTIONAL LEVEL Within Functional Limits Patient reported prior to last fall and admission to [facility] was independent with mobility, using rollator, recently discharged home from [facility], living home alone with assist from family and friends for IADLs as needed, was about to start Home PT, OT, ST Baseline Cognition: Oriented to self, Oriented to place, Oriented to time SUBJECTIVE awake, agreeable to OT session COGNITION Responsiveness: Alert, Awake Follows Commands: 3-step Commands THERAPY DIAGNOSIS Reduced mobility-other, Decreased activities of daily living (ADL), Muscle Weakness (generalized) TREATMENT INTERVENTIONS Evaluation, Self Usp Management (74082) Timed Code Treatment (minutes): 10 Skilled Treatment Time (minutes): 26 $ Evaluation - Moderate (61548) Billed Units: 1 unit Self Usp Management (50018) Treatment Minutes: 10 $ Self Usp Management (91678) Billed Units: 1 unit TRAINING AND EDUCATION PROVIDED Role of Occupational Therapy, Expected Functional Level, Discharge Planning, Lower Extremity Bathing, Lower Extremity Dressing, Transfer - Bed to Chair, Precautions/Restrict ions THERAPEUTIC SKILLS USED Activity Dosing, Cues for Sequencing/Proper Technique for Activity, Physical Assist, Therapeutic Use of Self, Movement Facilitation FUNCTIONAL STATUS Activities of Daily Living Assist Level Additional Information Feeding Set Up Grooming Minimal Assistance Bathing Upper Body Moderate Assistance Bathing Lower Body Maximal Assistance Dressing Upper Body Moderate Assistance Dressing Lower Body Maximal Assistance Toileting Maximal Assistance Mobility Assist Level Additional Information Bed Mobility Sit to Stand Moderate Assistance Stand to Sit Minimal Assistance Bed to Chair Toilet/Commode Minimal Assistance Shower Functional Mobility Minimal Assistance Functional Mobility Device: Wheeled Walker GOALS Grooming with: Contact Guard Assistance (sinkside) Upper Body Bathing with: Minimal Assistance Upper Body Dressing with: Minimal Assistance Lower Body Bathing with: Minimal Assistance Lower Body Dressing with: Minimal Assistance Toilet Hygiene with: Contact Guard Assistance Toilet Transfer with: Contact Guard Assistance Tolerate (minutes of functional activity): 20 Functional Activity with: Verbal Cues Only Demonstrate Competence with Education with: Verbal Cues Only (energy conservation, safety with ADL) Rehab Potential: Good P (more content not included)... Normal [facility] THERAPY NT HNO ID: [id number] Author: RAUDEL SAPP PT Service: Physical Therapy Author Type: Physical Therapist Type: Therapy (PT/OT/Speech/Resp) Filed: 06/29/2024 11:06 Note Text: Physical Therapy Evaluation Summary SERVICE DATE: 06/29/2024 SERVICE TIME: 0942 to 1010 ROOM: [place] [address] PT 6 Clicks Score: 16 DISCHARGE RECOMMENDATIONS Acute Rehab Recommended Discharge Disposition Comments: Patient well below baseline with no assistance at home, recommend Acute Rehab at discharge to optimize strength and functional independence. Patient would tolerate 3 hours of combined therapies daily Recommended Discharge Disposition Due to: Patient requires active, intensive rehabilitation by multiple therapy disciplines. Anticipate the patient will tolerate 3 hours of therapy per day., Functional deficits requiring ongoing therapy service prior to discharge home., Functional status decline, Motor planning deficits ASSESSMENT Response to Therapy Interventions: Good Participation in Activities, Pain, Requires Additional Time to Complete Activities PRECAUTIONS Fall Risk, Weight Bearing Restrictions, Spine, Brace LSO for comfort Right Lower Extremity Weight Bearing Status: WBAT (in post op shoe) CURRENT HOSPITAL COURSE 89 y.o female admitted for fall, recently discharged from [facility] following another fall, found to have R 5th metatarsal fx, R L1 and L2 t.p fx, L 1,3-8 rib fx, chronic 8-10 rib fx, and age indeterminate R 8-10 rib fx, L2-L3 retropulsion of vertebral body, LSO for comfort, WBAT RLE in post op shoe Relevant Past Medical History: HTN, HLD, pAF on warfarin, NEL, osteoporosis, secondary hypothyroidism, L2-3 comp fx s/p kyphoplasty HOME LIVING Patient Lives With: Self/Alone Assistance Available: PRN (neighbors, family) Entry To Home: Stairs, With Rail Number Of Stairs Into Home: 3 Number Of Stairs To Bed/Bath: 0 Tub/Shower Type: walk in shower with built in seat and grab bars Laundry: patient normally completes Equipment Owned: Elevated Toilet Seat, Grab Bars- Shower, Grab Bars- Toilet, Rollator, Shower Chair, Walker- Wheeled, Wheelchair- Manual, Hand Held Shower, Sock Aid, Cane PRIOR FUNCTIONAL LEVEL Within Functional Limits Patient reported prior to last fall and admission to [facility] was independent with mobility, using rollator, recently discharged home from [facility], living home alone with assist from family and friends for IADLs as needed, was about to start Home PT SUBJECTIVE Patient pleasant and agreeable to PT session THERAPY DIAGNOSIS Reduced mobility-other, Muscle Weakness (generalized), Unsteadiness on feet, General symptoms and signs-other TREATMENT INTERVENTIONS Evaluation, Therapeutic Activity (42094) $ Evaluation-Moderate (09598) Billed Units: 1 unit Therapeutic Activity (00279) Treatment Minutes: 13 $ Therapeutic Activity (38149) Billed Units: 1 unit Cues/assist with mobility as listed in grid below. Requires increased time to complete due to general weakness and pain, however very motivated and eager to participate. Educated patient on spine precautions (BLT): no bending, lifting >8-10 lbs, and no twisting. Educated patient on use of log roll into/out of bed to maintain neutral spine alignment and discourage twisting at trunk. Encouraged change of position, sitting up in chair and limiting time spent in bed to aid in optimal healing. Educated on use of LSO for comfort, not needed to be worn at all times. Assisted to don properly due to brace being on upside down when entering room. Assisted to don post op shoe and regular shoe on L foot prior to ambulation. LAQ x10 BLE Hip adduction squeezes x10 Timed Code Treatment (minutes): 13 Skilled Treatment Time (minutes): 28 TRAINING AND EDUCATION PROVIDED Assistive Device Use, Benefits of In-Hospital Mobility, Discharge Planning, Energy Conservation, Expected Functional Level, Falls Prevention, Gait Pattern, Reduction of Deviations, Positioning, Precautions/Restrict ions, Role of Physical Therapy, Standing Balance, Transfers THERAPEUTIC SKILLS USED Activity Dosing, Cues for Sequencing/Proper Technique for Activity, Cuing Tactile, Cuing Verbal, Movement Facilitation, Physical Assist, Postural Alignment Correction FUNCTIONAL STATUS Bed Mobility Scooting: Contact Guard Assistance Transfers Sit To Stand: Minimal Assistance, Additional Information cues for hand placement, power through LE, tuck bottom to stand tall, increased time to achieve upright posture secondary to pain and weakness Stand To Sit: Minimal Assistance, Additional Information cues to square up with walker, hand placement once back of LE touching, slowly lower bottom, requiring assist to control descent of trunk Bed to Chair Gait Minimal Assistance, Additional Information patient ambulating with slower antalgic gait, cues to look forward and keep feet within walker frame, min assist for balance and walker management (more content not included)... Normal [facility] ALLIED HEALTHon 06-28-2024 ALLIED HEALTH HNO ID: [id number] Author: SADIA PELAEZ RT(R) Service: Radiology Author Type: Technologist Type: Allied Health Filed: 06/28/2024 08:05 Note Text: Radiology Service Progress Note PATIENT NAME: Joyce Solomon DATE OF SERVICE: June 28, 2024 TIME: 7:56 AM PATIENT IDENTITY VERIFICATION COMPLETED USING TWO (2) IDENTIFIERS: Name and Date of confirmed by patient verbally and Name and Date of confirmed by identification band. FALL SCREENING: Has the patient had 2 falls in the last year or 1 fall with injury or currently using an Ambulatory Assistive Device (Walker, Cane, Wheelchair, Crutches, etc.)? Inpatient: Screened on floor PATIENT GENDER DATA: Assigned female at . status: : No status: NO. PATIENT RELEVANT IMPLANT DATA REVIEWED: Not Applicable PATIENT PRESENTS WITH AN IMPLANTABLE OR ATTACHED HOME AND SCHOOL VISITOR: No RADIOLOGY DEPARTMENT: MR; Exam(s) Completed: Spine: Lumbar spine PERIPHERAL IV DATA: Not applicable SIGNED BY: RT Tomas(R) June 28, 2024 7:56 AM Normal [facility] Basic Metabolic Profile (BMP )on 06-28-2024 BUN Normal 7-18 [facility] Comment on above: Result Comment: Canc elled via OM: Order cancelled - Patient discharged Performed By: #### L 500.2500, L100.0100 ####[facility] [address] [place], [address] BUN/CRE Normal 10-20 [facility] Comment on above: Result Comment: Canc elled via OM: Order cancelled - Patient discharged Performed By: #### L 500.2500, L100.0100 ####[facility] [address] [place], [address] CA,Total Normal 8.5-10.1 [facility] Comment on above: Result Comment: Canc elled via OM: Order cancelled - Patient discharged Performed By: #### L 500.2500, L100.0100 ####[facility] [address] [place], [address] CL Normal 98-107 [facility] Comment on above: Result Comment: Canc elled via OM: Order cancelled - Patient discharged Performed By: #### L 500.2500, L100.0100 ####[facility] [address] [place], [address] CO2 Normal 21.0-32.0 [facility] Comment on above: Result Comment: Canc elled via OM: Order cancelled - Patient discharged Performed By: #### L 500.2500, L100.0100 ####[facility] [address] [place], [address] CREAT,SERUM Normal 0.55-1.02 [facility] Comment on above: Result Comment: Canc elled via OM: Order cancelled - Patient discharged Performed By: #### L 500.2500, L100.0100 ####[facility] [address] [place], [address] EST GFR Normal >60 [facility] Comment on above: Result Comment: Canc elled via OM: Order cancelled - Patient discharged Performed By: #### L 500.2500, L100.0100 ####[facility] [address] [place], [address] EST GFR - AA Normal >60 [facility] Comment on above: Result Comment: Canc elled via OM: Order cancelled - Patient discharged Performed By: #### L 500.2500, L100.0100 ####[facility] [address] [place], [address] GAP Normal 5-15 [facility] Comment on above: Result Comment: Canc elled via OM: Order cancelled - Patient discharged Performed By: #### L 500.2500, L100.0100 ####[facility] [address] [place], [address] GLU Normal 74-106 [facility] Comment on above: Result Comment: Canc elled via OM: Order cancelled - Patient discharged Performed By: #### L 500.2500, L100.0100 ####[facility] [address] [place], [address] Potassium Normal 3.5-5.1 [facility] Comment on above: Result Comment: Canc elled via OM: Order cancelled - Patient discharged Performed By: #### L 500.2500, L100.0100 ####[facility] [address] [place], [address] Basic Metabolic Profile (BMP) Normal 136-145 [facility] Comment on above: Result Comment: Canc elled via OM: Order cancelled - Patient discharged Performed By: #### L 500.2500, L100.0100 ####[facility] [address] [place], [address] Basic metabolic 2000 panelon 06-28-2024 Anion gap [Moles/Vol] 10 mmol/L Normal 8-15 [facility] Comment on above: Order Comment: Speci men Type: BLOOD SPECIMENOrdering Facility: [facility] Address: [address] [place], [place] [address] Performed By: #### 2 4321-2, , 2776-05 ####[facility] LABORATORYCLIA [id number] [place] [address] [place] Calcium [Mass/Vol] 8.6 mg/dL Normal 8.5-10.2 [facility] Comment on above: Order Comment: Speci men Type: BLOOD SPECIMENOrdering Facility: [facility] Address: [address] [place] [address] Performed By: #### 2 4321-2, , 2776-05 ####[facility] LABORATORYCLIA [id number] [place] [address] [place] Chloride [Moles/Vol] 96 mmol/L Low 98-107 [facility] Comment on above: Order Comment: Speci men Type: BLOOD SPECIMENOrdering Facility: [facility] Address: [address] [place] [address] Performed By: #### 2 4321-2, , 2776-05 ####[facility] LABORATORYCLIA [id number] [place] [address] [place] CO2 [Moles/Vol] 31 mmol/L High 22-30 [facility] Comment on above: Order Comment: Speci men Type: BLOOD SPECIMENOrdering Facility: [facility] Address: [address] [place] [address] Performed By: #### 2 4321-2, , 2776-05 ####[facility] LABORATORYCLIA [id number] [place] [address] [place] Creatinine [Mass/Vol] 0.75 mg/dL Normal 0.58-0.96 [facility] Comment on above: Order Comment: Speci men Type: BLOOD SPECIMENOrdering Facility: [facility] Address: [address] [place] [address] Performed By: #### 2 4321-2, , 2776-05 ####[facility] LABORATORYCLIA [id number] [address] [place] Creatinine and Glomerular filtration rate.predicted panel (S/P/Bld) 77 mL/min/1.73m??? Normal >=60 [facility] Comment on above: Order Comment: Christopher hurd Type: BLOOD SPECIMENOrdering Facility: [facility] Address: [address] [place] [address] Result Comment: Michael mated Glomerular Filtration Rate (eGFR) is calculated using the 2020 CKD-EPI creatinine equation. This equation utilizes serum creatinine, sex, and age as parameters. The creatinine assay has traceable calibration to isotope dilution-mass spectrometry. Refer to KDIGO guidelines for clinical interpretation. In patients with unstable renal function, e.g. those with acute kidney injury, the eGFR may not accurately reflect actual GFR. Performed By: #### 2 4321-2, , 2776-05 ####[facility] LABORATORYCLIA [id number] [place] [address] [place] Glucose [Mass/Vol] 88 mg/dL Normal 74-99 [facility] Comment on above: Order Comment: Christopher vannessa Type: BLOOD SPECIMENOrdering Facility: [facility] Address: [address] [place] [address] Result Comment: The [place] Diabetes Association (ADA) provides guidance for cutoff values for fasting glucose and random glucose. The ADA defines fasting as no caloric intake for at least 8 hours. Fasting plasma glucose results between 100 to 125 mg/dL indicate increased risk for diabetes (prediabetes). Fasting plasma glucose results greater than or equal to 126 mg/dL meet the criteria for diagnosis of diabetes. In the absence of unequivocal hyperglycemia, results should be confirmed by repeat testing. In a patient with classic symptoms of hyperglycemia or hyperglycemic crisis, random plasma glucose results greater than or equal to 200 mg/dL meet the criteria for diagnosis of diabetes. Reference: Standards of Medical Care in Diabetes 2016, [place] [employer] Association. Diabetes Care. 2016.39(Suppl 1). Performed By: #### 2 4321-2, 97138-1, 277- ####[facility] LABORATORYCLIA [id number] [place] [address] [place] Potassium [Moles/Vol] 3.7 mmol/L Normal 3.7-5.1 [facility] Comment on above: Order Comment: Speci men Type: BLOOD SPECIMENOrdering Facility: [facility] Address: [address] [place] [address] Performed By: #### 2 4321-2, , 2776- ####[facility] LABORATORYCLIA [id number] [place] [address] [place] Sodium [Moles/Vol] 137 mmol/L Normal 136-144 [facility] Comment on above: Order Comment: Speci men Type: BLOOD SPECIMENOrdering Facility: [facility] Address: [address] [place] [address] Performed By: #### 2 4321-2, , 2776-05 ####[facility] LABORATORYCLIA [id number] [place] [address] [place] Urea nitrogen [Mass/Vol] 15 mg/dL Normal 7-21 [facility] Comment on above: Order Comment: Speci men Type: BLOOD SPECIMENOrdering Facility: [facility] Address: [address] [place] [address] Performed By: #### 2 4321-2, , 2776-05 ####[facility] LABORATORYCLIA [id number] [place] [id number] [place] CBC W/Diff, Automatedon 02-05 18-2024 Absolute Neut Normal 2.0-7.7 [facility] Comment on above: Result Comment: Canc elled via OM: Order cancelled - Patient discharged Performed By: #### L 500.2500, L100.0100 ####[facility] [address] [place], [address] HCT Normal 37-47 [facility] Comment on above: Result Comment: Canc elled via OM: Order cancelled - Patient discharged Performed By: #### L 500.2500, L100.0100 ####[facility] [address] [place], [address] HGB Normal 12.0-15.0 [facility] Comment on above: Result Comment: Canc elled via OM: Order cancelled - Patient discharged Performed By: #### L 500.2500, L100.0100 ####[facility] [address] [place], [address] MCH Normal 27.0-32.0 [facility] Comment on above: Result Comment: Canc elled via OM: Order cancelled - Patient discharged Performed By: #### L 500.2500, L100.0100 ####[facility] [address] [place], [address] MCHC Normal 32-36 [facility] Comment on above: Result Comment: Canc elled via OM: Order cancelled - Patient discharged Performed By: #### L 500.2500, L100.0100 ####[facility] [address] [place], [address] MCV Normal 81-99 [facility] Comment on above: Result Comment: Canc elled via OM: Order cancelled - Patient discharged Performed By: #### L 500.2500, L100.0100 ####[facility] [address] [place], [address] NEUT% Normal 47-70 [facility] Comment on above: Result Comment: Canc elled via OM: Order cancelled - Patient discharged Performed By: #### L 500.2500, L100.0100 ####[facility] [address] [place], [address] PLT Normal 150-450 [facility] Comment on above: Result Comment: Canc elled via OM: Order cancelled - Patient discharged Performed By: #### L 500.2500, L100.0100 ####[facility] [address] [place], [address] RBC Normal 4.2-5.4 [facility] Comment on above: Result Comment: Canc elled via OM: Order cancelled - Patient discharged Performed By: #### L 500.2500, L100.0100 ####[facility] [address] [place], [address] RDW CV Normal 11.6-14.6 [facility] Comment on above: Result Comment: Canc elled via OM: Order cancelled - Patient discharged Performed By: #### L 500.2500, L100.0100 ####[facility] [address] [place], [address] RDW SD Normal 35.1-43.9 [facility] Comment on above: Result Comment: Canc elled via OM: Order cancelled - Patient discharged Performed By: #### L 500.2500, L100.0100 ####[facility] [address] [place], [address] WBC Normal 4.4-11.0 [facility] Comment on above: Result Comment: Canc elled via OM: Order cancelled - Patient discharged Performed By: #### L 500.2500, L100.0100 ####[facility] [address] [place], [address] CBC panel Auto (Bld)on 06-28 Erythrocyte distribution width (RBC) [Ratio] 14.7 % Normal 11.5-15.0 [facility] Comment on above: Order Comment: Speci men Type: BLOOD SPECIMENOrdering Facility: [facility] Address: [address] [place] [address] Performed By: #### 5 8410-2 ####[facility] LABORATORYCLIA [id number] [place] [address] [facility] Hematocrit (Bld) [Volume fraction] 28.8 % Low 36.0-46.0 [facility] Comment on above: Order Comment: Speci men Type: BLOOD SPECIMENOrdering Facility: [facility] Address: [address] [place] [address] Performed By: #### 5 8410-2 ####[facility] LABORATORYCLIA [id number] [address] OF [facility] Hemoglobin (Bld) [Mass/Vol] 9.3 g/dL Low 11.5-15.5 [facility] Comment on above: Order Comment: Speci men Type: BLOOD SPECIMENOrdering Facility: [facility] Address: [address] [place] [address] Performed By: #### 5 8410-2 ####[facility] LABORATORYCLIA [id number] [address] [place] OF [facility] MCH (RBC) [Entitic mass] 30.4 pg Normal 26.0-34.0 [facility] Comment on above: Order Comment: Speci men Type: BLOOD SPECIMENOrdering Facility: [facility] Address: [address] [place] [address] Performed By: #### 5 8410-2 ####[facility] LABORATORYCLIA [id number] [address] OF [facility] MCHC (RBC) [Mass/Vol] 32.3 g/dL Normal 30.5-36.0 [facility] Comment on above: Order Comment: Speci men Type: BLOOD SPECIMENOrdering Facility: [facility] Address: [address] [place] [address] Performed By: #### 5 8410-2 ####[facility] LABORATORYCLIA [id number] [address] [place] [facility] MCV (RBC) [Entitic vol] 94.1 fL Normal 80.0-100.0 [facility] Comment on above: Order Comment: Speci men Type: BLOOD SPECIMENOrdering Facility: [facility] Address: [address] [place] [address] Performed By: #### 5 8410-2 ####[facility] LABORATORYCLIA [id number] [address] [place] Nucleated RBC (Bld) [#/Vol] 10*3/uL Normal <0.01 [facility] Comment on above: Order Comment: Speci men Type: BLOOD SPECIMENOrdering Facility: [facility] Address: [address] [place] [address] Performed By: #### 5 8410-2 ####[facility] LABORATORYCLIA [id number] [address] [place] Platelet mean volume (Bld) [Entitic vol] 9.2 fL Normal 9.0-12.7 [facility] Comment on above: Order Comment: Speci men Type: BLOOD SPECIMENOrdering Facility: [facility] Address: [address] [place] [address] Performed By: #### 5 8410-2 ####[facility] LABORATORYCLIA [id number] [address] [place] Platelets (Bld) [#/Vol] 262 10*3/uL Normal 150-400 [facility] Comment on above: Order Comment: Speci men Type: BLOOD SPECIMENOrdering Facility: [facility] Address: [address] [place] [address] Performed By: #### 5 8410-2 ####[facility] LABORATORYCLIA [id number] [address] [place] RBC (Bld) [#/Vol] 3.06 10*6/uL Low 3.90-5.20 [facility] Comment on above: Order Comment: Speci men Type: BLOOD SPECIMENOrdering Facility: [facility] Address: [address] [place] [address] Performed By: #### 5 8410-2 ####[facility] LABORATORYCLIA [id number] [address] [place] WBC (Bld) [#/Vol] 6.94 10*3/uL Normal 3.70-11.00 [facility] Comment on above: Order Comment: Speci men Type: BLOOD SPECIMENOrdering Facility: [facility] Address: [address] [place] [address] Performed By: #### 5 8410-2 ####[facility] LABORATORYCLIA [id number] [place] [address] [place] CONSULTon 06-28-2024 CONSULT HNO ID: [id number] Author: LELAND REILLY PA Service: Geriatrics Author Type: Physician Emergency Services Dispatcher Type: Consults Filed: 06/28/2024 11:10 Note Text: GERIATRIC MEDICINE CONSULT NOTE SERVICE DATE: 06/28/2024 SERVICE TIME: 9:00 AM [id number]-* REASON FOR CONSULT: 89-year old female with frequent falls with associated injuries" REQUESTING PROVIDER: Peewee Latif CNP HISTORY OF PRESENT ILLNESS: Joyce Solomon is a 89 year old female with a past medical history of HTN, atrial fibrillation, NEL, and depression who was admitted on 06/26 for closed fracture of multiple ribs of left side. Patient fell at home, was taken to [place] ED for evaluation. Noted patient has had multiple recent falls. 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 Was transferred to [facility] for trauma evaluation. Patient was admitted under trauma to ICU. Neurosurgery consulted for prior L2-3 vertebroplasty with retropulsion of bone fragments and R L1 and R L2 TP fractures, recommended further imaging and bedrest. Orthopedic surgery consulted for R fifth metatarsal fracture, recommended non-operative management. Patient was transferred to [facility] on 06/27. Determined to be HIGH RISK for delirium with DEAR assessment. Negative BCAMs noted. Patient is awake in the hospital bed, RN at bedside, patient wearing glasses, blinds open. Pleasant and cooperative. Able to state name, age, , place, month, year, why she is at the hospital and hospital course. Denies feelings of confusion or hallucinations. Endorses weakness, fatigue, and constipation (unsure when last BM was). Denies chest pain, palpitations, cough, shortness of breath, abdominal pain, nausea, dizziness, headaches, or vision changes since the fall. Slept well per RN, voiding without difficulty, no BM, tolerating meals. Information was obtained from the patient. She is AANDO X3 at baseline, denies history of cognitive impairment, dementia or delirium. Denies significant problems with memory or cognition at baseline. States her problem is with mobility. States it all started about a year or so ago with her first fall, and now she has trouble with balance. States she uses a walker and cane, primarily uses the walker. Denies any other falls within the last 6 months. States she has been doing home therapy. Lives in a condo alone, 3 half steps in the garage, no trouble with the stairs as there are two handrails. Has family and neighbors that help her often, grandchild and daughter live nearby, healthcare workers in the family. Denies safety concerns at this time. Independent in B-ADLs. Assistance in I-ADLs. No longer driving. Daughter will drive her to doctors appointments. Reviewed hospitalization for subarachnoid hemorrhage, no longer taking warfarin. No other ED visits or hospital admissions noted within the last 6 months. Denies dysphagia and odynophagia but was working with speech therapy at home. Endorses poor appetite, unsure of weight loss due to peripheral edema and on lasix. States she was feeling really anxious for the MRI this morning but feeling better. States she sleeps well if she has her CPAP. Endorses both vision and hearing impairment, glasses but no hearing aids. States she probably needs hearing aids. Denies tobacco, alcohol, or illicit drug use. Called Martha (daughter), provided update. States patient has been doing fairly well prior to fall. Lives at home alone but neighbors and grandson primarily assist. Daughter helps with medications and groceries. Helps the patient at least once weekly as she lives about one hour away. Uses a walker with ambulation. Overall no concerns. Answered all questions. Subjective DNR/CODE STATUS: DNR-CCA, DNI Advance Directives: Living Will? Not in chart HCPOA? Not in chart Decision Maker? Martha Hdz (daughter), only child PCP: Dr. Bridget Swenson, was last seen about a week or so ago. Past Medical History: PAST MEDICAL HISTORY Diagnosis Date Abdominal pain, unspecified site Abdominal pain, unspecified site Depression Dyslipidemia Flatulence, eructation, and gas pain Fracture L shoulder (2008), Sacral stress fracture; R wrist Hypertension Mitral valve prolapse Obstructive sleep apnea Osteoporosis, unspecified 01/30/2005 Other symptoms involving digestive system(787.99) PAF (paroxysmal [facility] fibrillation) [facility]) 10/20/2013 Thyroid disorder Past Surgical History: PAST SURGICAL HISTORY Procedure Laterality Date APPENDECTOMY CHOLECYSTECTOMY COLONOSCOPY FLX DX W/COLLJ SPEC WHEN PFRMD 06-12-06 Repeat in COLONOSCOPY FLX DX W/COLLJ SP (more content not included)... Normal [facility] Calcium.ionized [Moles/Vol]o n 06-28-2024 Calcium.ionized (BldV) [Mass/Vol] 1.14 mmol/L Normal 1.08-1.30 [facility] Comment on above: Order Comment: Speci men Type: BLOOD SPECIMENOrdering Facility: [facility] Address: [address] [place] [address] Performed By: #### 1 995-0 ####[facility] LABORATORYCLIA [id number] [address] [place] OF [facility] Calcium.ionized adjusted to pH 7.4 (Bld) [Moles/Vol] 1.17 mmol/L Normal 1.08-1.30 [facility] Comment on above: Order Comment: Speci men Type: BLOOD SPECIMENOrdering Facility: [facility] Address: [address] [place] [address] Performed By: #### 1 995-0 ####[facility] LABORATORYCLIA [id number] [address] [place] MRI LUMBAR SPINE WO IVCONon 06-28-2024 MRI LUMBAR SPINE WO IVCON * * *Final Report* * * DATE OF EXAM: Jun 28 2024 8:29AM [id number] [id number] - MRI LUMBAR SPINE WO IVCON / PROCEDURE REASON: Spine fracture, lumbar, traumatic * * * * Physician Interpretation * * * * EXAMINATION: MRI LUMBAR SPINE WO IVCON CLINICAL HISTORY: Spine fracture, lumbar, traumatic, pain TECHNIQUE: Routine lumbosacral spine MR protocol without gadolinium. MQ: [id number] COMPARISON: 06/27/2024 CT RESULT: Counting reference: Lumbosacral junction. For the purposes of this report, L4-5 level is at the level iliac crest level Localizer images: Unremarkable. Alignment: Alignment is anatomic. Bone marrow signal/fracture: No evidence of pathologic marrow infiltration. Redemonstration right L1-L2 nondisplaced transverse process fractures. No definite associated increased STIR signal therefore the fractures may be old. Chronic wedge-shaped compression fractures at L2 and L3 vertebral bodies unchanged in morphology. Status post kyphoplasty. Redemonstration of retropulsion of the middle column fracture components associated with moderate degree of canal compromise. Conus: The conus is within normal limits of signal intensity and morphology. Cauda equina nerve roots appear unremarkable Paraspinal soft tissues: Paraspinal soft tissues are within normal limits. No retroperitoneal hemorrhage Lower thoracic spine: Visualized lower thoracic canal and foramina are patent. L1-L2: Neural foramina are patent. L2-L3: Moderate degree of central canal narrowing associated with chronic L3 compression fracture with retropulsion of the middle column fracture components. Mild degree degenerative foraminal narrowing greater left side L3-L4: Moderate degree of central canal narrowing associated with chronic L3 compression fracture with retropulsion of the middle column fracture components. Mild degree of narrowing bilateral neural foramen greater left side associated with the L3 fracture. L4-L5: Mild narrowing the left neural foramen L5-S1: Right facet arthropathy associated with mild degree right foraminal stenosis. Central canal is patent Sacrum and iliac wings: The visualized sacrum and iliac wings are within normal limits. IMPRESSION: 1. No MRI evidence of acute traumatic injury to the lumbosacral spine. 2.Redemonstration right L1-L2 nondisplaced transverse process fractures. No definite associated increased STIR signal therefore the fractures may be chronic. 3.Chronic wedge-shaped compression fractures at L2 and L3 vertebral bodies unchanged in morphology. Status post kyphoplasty. Redemonstration of retropulsion of the middle column fracture components associated with moderate degree of canal compromise. Anatomic Lumbar Variant: None 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: CLINT Transcribe Date/Time: Jun 28 2024 8:50A Dictated by : ANGUS BARTLETT MD This examination was interpreted and the report reviewed and electronically signed by: ANGUS BARTLETT MD on Jun 28 2024 9:02AM EST [id number] CN Normal [facility] Magnesium [facility] 06-28 Magnesium [Mass/Vol] 1.7 mg/dL Normal 1.7-2.3 [facility] Comment on above: Order Comment: Speci men Type: BLOOD SPECIMENOrdering Facility: [facility] Address: [address] [place] [address] Performed By: #### 2 4321-2, 01197-8, 2777-1 ####[facility] LABORATORYCLIA [id number] [address] Phosphate [facility] 06-28 Phosphate [Mass/Vol] 3.7 mg/dL Normal 2.7-4.8 [facility] Comment on above: Order Comment: Speci men Type: BLOOD SPECIMENOrdering Facility: [facility] Address: [address] [place] [address] Performed By: #### 2 4321-2, 95938-5, 2777-1 ####[facility] [id number] [address] 25(OH)D3 [facility] 2024 25-hydroxyvitamin D3 [Mass/Vol] 35.2 ng/mL Normal >=30.0 [facility] Comment on above: Order Comment: Speci men Type: BLOOD SPECIMENOrdering Facility: [facility] Address: [address] [place] [address] Result Comment: Clas sification of 25 [place] Vitamin D status: Deficiency: <= 20.0 ng/ml. Insufficiency: 21.0-29.0 ng/ml. Sufficiency: >= 30.0 ng/ml. Performed By: #### 1 989-3 ####[facility] LABORATORYCLIA [id number] [address] OF [facility] ALLIED HEALTHon 06-27-2024 ALLIED HEALTH HNO ID: [id number] Author: ALEXIS PABLO RT(R) Service: Radiology Author Type: Technologist Type: Allied Health Filed: 06/27/2024 06:08 Note Text: Radiology Service Progress Note DATE OF SERVICE: June 27, 2024 TIME: 6:07 AM PATIENT IDENTITY VERIFICATION COMPLETED USING TWO (2) STANDARD IDENTIFIERS: Name and Date of confirmed by patient verbally and Name and Date of confirmed by identification band. FALL SCREENING: Has the patient had 2 falls in the last year or 1 fall with injury or currently using an Ambulatory Assistive Device (Walker, Cane, Wheelchair, Crutches, etc.)? Emergency Room Patient: Screened in ED PATIENT GENDER DATA: Assigned female at . status: : No status: NO. PATIENT RELEVANT IMPLANT DATA REVIEWED: Not Applicable PATIENT PRESENTS WITH AN IMPLANTABLE OR ATTACHED HOME AND SCHOOL VISITOR: No ALLERGIES: Reviewed and unchanged CONTRAST ALLERGY: NO. EXAM: CT -CONTRAST INDUCED NEPHROPATHY RISK FACTORS: Patient age > 60 years CREATININE: Creatinine Date Value Ref Range Status 06/27/2024 0.86 0.58 - 0.96 mg/dL Final 05/16/2024 0.87 0.58 - 0.96 mg/dL Final 05/15/2024 0.76 0.58 - 0.96 mg/dL Final Estimated Glomerular Filtration Rate Date Value Ref Range Status 06/27/2024 65 >=60 mL/min/1.73m? Final Comment: Estimated Glomerular Filtration Rate (eGFR) is calculated using the 2020 CKD-EPI creatinine equation. This equation utilizes serum creatinine, sex, and age as parameters. The creatinine assay has traceable calibration to isotope dilution-mass spectrometry. Refer to KDIGO guidelines for clinical interpretation. In patients with unstable renal function, e.g. those with acute kidney injury, the eGFR may not accurately reflect actual GFR. eGFR- Date Value Ref Range Status 04/09/2014 >60 Final P.O.C.T. RESULTS: N/A June 27, 2024 TREATMENT: N/A PERIPHERAL IV DATA: Inpatient - refer to LDA documentation RADIOLOGY DEPARTMENT: CT; Exam(s) Completed: Abdomen/Pelvis , CTA Brain , CTA Neck , and Spine SIGNATURE: RT Delfino(R) PATIENT NAME: Joyce Solomon DATE: June 27, 2024 TIME: 6:07 AM Normal [facility] CBC panel Auto (Bld)on 06-27 Erythrocyte distribution width (RBC) [Ratio] 14.6 % Normal 11.5-15.0 [facility] Comment on above: Order Comment: Speci men Type: BLOOD SPECIMENOrdering Facility: [facility] Address: [address] [place] [address] Performed By: #### 5 8410-2 ####[facility] LABORATORYCLIA [id number] [address] [place] OF [facility] Hematocrit (Bld) [Volume fraction] 29.9 % Low 36.0-46.0 [facility] Comment on above: Order Comment: Speci men Type: BLOOD SPECIMENOrdering Facility: [facility] Address: [address] [place] [address] Performed By: #### 5 8410-2 ####[facility] LABORATORYCLIA [id number] [address] [place] Hemoglobin (Bld) [Mass/Vol] 9.5 g/dL Low 11.5-15.5 [facility] Comment on above: Order Comment: Speci men Type: BLOOD SPECIMENOrdering Facility: [facility] Address: [address] [place] [address] Performed By: #### 5 8410-2 ####[facility] LABORATORYCLIA [id number] [address] [place] MCH (RBC) [Entitic mass] 29.9 pg Normal 26.0-34.0 [facility] Comment on above: Order Comment: Speci men Type: BLOOD SPECIMENOrdering Facility: [facility] Address: [address] [place] [address] Performed By: #### 5 8410-2 ####[facility] LABORATORYCLIA [id number] [address] [place] MCHC (RBC) [Mass/Vol] 31.8 g/dL Normal 30.5-36.0 [facility] Comment on above: Order Comment: Speci men Type: BLOOD SPECIMENOrdering Facility: [facility] Address: [address] [place] [address] Performed By: #### 5 8410-2 ####[facility] LABORATORYCLIA [id number] [address] OF [facility] MCV (RBC) [Entitic vol] 94.0 fL Normal 80.0-100.0 [facility] Comment on above: Order Comment: Speci men Type: BLOOD SPECIMENOrdering Facility: [facility] Address: [address] [place] [address] Performed By: #### 5 8410-2 ####[facility] LABORATORYCLIA [id number] [address] OF [place] Nucleated RBC (Bld) [#/Vol] 10*3/uL Normal <0.01 [facility] Comment on above: Order Comment: Speci men Type: BLOOD SPECIMENOrdering Facility: [facility] Address: [address] [place] [address] Performed By: #### 5 8410-2 ####[facility] LABORATORYCLIA [id number] [address] OF [facility] Platelet mean volume (Bld) [Entitic vol] 9.3 fL Normal 9.0-12.7 [facility] Comment on above: Order Comment: Speci men Type: BLOOD SPECIMENOrdering Facility: [facility] Address: [address] [place] [address] Performed By: #### 5 8410-2 ####[facility]ORATORYCLIA [id number] [address] OF [facility] Platelets (Bld) [#/Vol] 264 10*3/uL Normal 150-400 [facility] Comment on above: Order Comment: Speci men Type: BLOOD SPECIMENOrdering Facility: [facility] Address: [address] [place] [address] Performed By: #### 5 8410-2 ####[facility]ORATORYCLIA [id number] [address] OF [place] RBC (Bld) [#/Vol] 3.18 10*6/uL Low 3.90-5.20 [facility] Comment on above: Order Comment: Speci men Type: BLOOD SPECIMENOrdering Facility: [facility] Address: [address] [place] [address], [place] [address] Performed By: #### 5 8410-2 ####[facility] LABORATORYCLIA [id number] [place] [address] [facility] WBC (Bld) [#/Vol] 6.47 10*3/uL Normal 3.70-11.00 [facility] Comment on above: Order Comment: Speci men Type: BLOOD SPECIMENOrdering Facility: [facility] Address: [address] [place], [place] [address] Performed By: #### 5 8410-2 ####[facility] LABORATORYCLIA [id number] [place] [address] [facility] CONSULTon 06-27-2024 CONSULT HNO ID: [id number] Author: GILL ADORNO DPM Service: Orthopaedic Surgery Author Type: Physician Type: Consults Filed: 06/28/2024 18:51 Note Text: ORTHOPAEDIC SURGERY CONSULT Pt: JOYCE SOLOMON Date of Consultation: 06/27/2024 Physician Consulted: Dr. Adorno Reason for Consultation: Right fifth metatarsal fracture 89 year old female presented to [facility] ED on 06/27/2024 for evaluation by our trauma service as a transfer from outside facility. The patient sustained a ground-level fall yesterday. She fell at home. The patient denies head trauma and loss of consciousness. The patient has sustained multiple recent falls. Because of this her anticoagulation for A-fib has been held recently. The patient lives at home and sometimes utilizes ambulation assistance devices at baseline. The patient denies fevers, chills, nausea, vomiting and other constitutional symptoms at this time. The patient has no additional orthopaedic complaints at this time. PAST MEDICAL HISTORY Diagnosis Date Abdominal pain, unspecified site Abdominal pain, unspecified site Depression Dyslipidemia Flatulence, eructation, and gas pain Fracture L shoulder (2007), Sacral stress fracture; R wrist Hypertension Mitral valve prolapse Obstructive sleep apnea Osteoporosis, unspecified 01/30/2005 Other symptoms involving digestive system(787.99) PAF (paroxysmal [facility] fibrillation) ([facility]) 10/20/2013 Thyroid disorder PAST SURGICAL HISTORY Procedure Laterality Date APPENDECTOMY CHOLECYSTECTOMY COLONOSCOPY FLX DX W/COLLJ SPEC WHEN PFRMD 06-12-06 Repeat in COLONOSCOPY FLX DX W/COLLJ SPEC WHEN PFRMD 12/31/2011 Colonoscopy ESOPHAGOGASTRODUODEN OSCOPY TRANSORAL DIAGNOSTIC 12/31/2011 EGD PAST SURGICAL HISTORY OF age 20 gland removed from under chin THYROID LEFT FINE NEEDLE ASPIRATION 12/30/07 U/S FNA Bilateral thyroid nodules THYROIDECTOMY SUBTOTAL/PARTIAL 05/2012 partial TONSILLECTOMY PRIMARY/SECONDARY Tonsillectomy Allergies: Sutures; Actonel [Risedronate Sodium]; Adhes. Cchj-Ftqf-Paasawkdyo um; Beets; Cantaloupe; Eggplant; Fosamax [Alendronate Sodium]; Mobic [Meloxicam]; Mold; Neurontin [Gabapentin]; Penicillins; Pork; Wheat Gluten; and Yeast, Dried Current Facility-Administere d Medications Medication Dose Route Frequency NaCl 0.9% iv flush bag 20 mL INTRAVENOUS PRN modafinil 100 mg tab(s) (PROVIGIL) 100 mg ORAL DAILY (6 AM) aspirin 81 mg chewable tab(s) 81 mg ORAL DAILY metoprolol tartrate (short acting) 50 mg tab(s) (LOPRESSOR) 50 mg ORAL BID tamsulosin 0.4 mg cap(s) (FLOMAX) 0.4 mg ORAL DAILY melatonin 3 mg tab(s) 3 mg ORAL AT BEDTIME PRN ondansetron 4 mg tab(s) (ZOFRAN) 4 mg ORAL q 6 H PRN Or ondansetron (PF) 4 mg injection (ZOFRAN) 4 mg INTRAVENOUS q 6 H PRN oxyCODONE IR 5-10 mg tab(s) (ROXICODONE) 5-10 mg ORAL q 6 H PRN acetaminophen 975 mg tab(s) (TYLENOL) 975 mg ORAL q 6 H fentaNYL 50 mcg/mL 50 mcg injection (SUBLIMAZE) 50 mcg INTRAVENOUS q 2 H PRN potassium chloride 20-40 mEq oral powder (KLOR-CON) 20-40 mEq ORAL/FEEDING TUBE PRN Or potassium chloride iv piggyback 20 mEq/100 mL 20 mEq INTRAVENOUS PRN magnesium sulfate iv piggyback in sterile water 2 g 50 mL 2 g INTRAVENOUS PRN calcium gluconate iv piggyback 2 g in NaCl (iso-osmotic) 100 mL 2 g INTRAVENOUS PRN(NO DISPENSE) lactated ringers iv infusion 125 mL/hr INTRAVENOUS CONTINUOUS iv contrast (radiology procedure) INTRAVENOUS DIRECTED PRN iv contrast (radiology procedure) INTRAVENOUS DIRECTED PRN ipratropium-albutero l 3 mL nebulizer solution (DUONEB) 3 mL INHALATION q 6 H PRN senna-docusate 8.6-50 mg 1 tablet (SENNA-S) 1 tablet ORAL BID cyclobenzaprine 5 mg tab(s) (FLEXERIL) 5 mg ORAL TID PRN Current Outpatient Medications Medication Sig furosemide (LASIX) 40 mg tablet Take 40 mg by mouth two times a day. metoprolol tartrate, short acting, (LOPRESSOR) 50 mg tablet Take 50 mg by mouth two times a day. modafinil (PROVIGIL) 100 mg tablet Take by mouth once daily. Pramipexole 3 mg Tb24 Take by mouth. tamsulosin (FLOMAX) 0.4 mg Take 0.4 mg by mouth once daily. traMADol (ULTRAM) 50 mg tablet Take 50 mg by mouth every 6 hours as needed for pain. magnesium oxide (MAG-OX) 400 mg (241.3 mg magnesium) tablet Take 1 tablet by mouth once daily. lidocaine (SALONPAS) 4 % patch Apply 1 Patch as directed once daily. acetaminophen (TYLENOL) 325 mg tablet 2 tablets by ORAL/FEEDING TUBE route every 4 hours as needed for pain. aspirin 81 mg chewable tablet Take 1 tablet by mouth once daily. losartan (COZAAR) 50 mg tablet 1 tablet by ORAL/FEEDING TUBE route once daily. Patient should start on May 17, 2024. melatonin 3 mg tablet Take 1 tablet by mouth at bedtime as needed for insomnia. FAMILY HISTORY Problem Relation Age of Onset Arrythmias Mother atrial fibrillation Osteoporosis Mother Aneurysm Mother 68 ruptured Diabetes Mother Heart Father cardiac arrest after gall saad (more content not included)... Normal [facility] CONSULT HNO ID: [id number] Author: KALYAN KENNEDY PA-C Service: Neurosurgery Author Type: Physician Emergency Services Dispatcher Type: Consults Filed: 06/27/2024 05:42 Note Text: Attestation signed by Heather Gutierrez MD at 06/27/2024 12:28 PM Attending Note I have personally performed a face to face assessment of the patient and have reviewed the ISMA note. I performed a substantive portion of the visit including all aspects of the following. My draper findings include: Medical Decision Makin-year-old female ambulates with a walker for past year states that she had a fall close to a year ago in which she suffered high lumbar compression fractures requiring kyphoplasty. Since that injury she has been needing assistive devices for ambulation and she has had what she perceives as weakness of her right lower extremity. She presents during this admission after fall found to have L1-L2 transverse process fractures in the setting of previous L2-3 compression fracture status post kyphoplasty with elements of retropulsion. Her biggest complaint today is her left flank pain secondary to her injury as well as her right ankle which is wrapped and braced. Denies any new focal neurological dysfunction. Will plan to obtain MRI of the lumbar spine without gadolinium. Will recommend LSO brace for comfort. Will update pending MRI lumbar spine. Other additions or changes: None Signature: Heather Gutierrez MD Date: 06/27/2024 Time: 12:25 PM CONSULT: NEUROSURGERY SERVICE Patient Name: Joyce Solomon Date of : 1935 SERVICE DATE: 06/27/2024 SERVICE TIME: 5:31 AM REASON FOR CONSULT: prior L2-3 vertebroplasty with retropulsion of bone fragments, R L1 and R L2 TP fractures REQUESTING PHYSICIAN: Dr. Rodriguez PRIMARY CARE PHYSICIAN: Bridget Swenson MD Consultation requested by Dr. Rodriguez for an opinion regarding prior L2-3 vertebroplasty with retropulsion of bone fragments, R L1 and R L2 TP fractures. My final recommendations will be communicated back to the requesting physician by way of shared Medical record or letter to requesting physician via [place] mail. CHIEF COMPLAINT: mechanical GLF HISTORY OF PRESENT ILLNESS : Joyce Solomon is a 89 year old female presenting as a trauma transfer from [facility] following a mechanical GLF. Patient states she tripped over her walker in her closet trying to get changed. Patient states she fractured her spine 1 year ago and had cement augmentation of L2 and L3. She states since then she has had back pain radiating to the right lower extremity. She denies worsening of this patient since her fall. She denies new or worsening lower extremity weakness. She denies bowel or bladder incontinence or saddle anesthesia. She ambulates with a walker at baseline. PAST MEDICAL HISTORY Diagnosis Date Abdominal pain, unspecified site Abdominal pain, unspecified site Depression Dyslipidemia Flatulence, eructation, and gas pain Fracture L shoulder (2007), Sacral stress fracture; R wrist Hypertension Mitral valve prolapse Obstructive sleep apnea Osteoporosis, unspecified 01/30/2005 Other symptoms involving digestive system(787.99) PAF (paroxysmal atrial fibrillation) ([facility]) 10/20/2013 Thyroid disorder PAST SURGICAL HISTORY Procedure Laterality Date APPENDECTOMY CHOLECYSTECTOMY COLONOSCOPY FLX DX W/COLLJ SPEC WHEN PFRMD 06-12-06 Repeat in COLONOSCOPY FLX DX W/COLLJ SPEC WHEN PFRMD 12/31/2011 Colonoscopy ESOPHAGOGASTRODUODEN OSCOPY TRANSORAL DIAGNOSTIC 12/31/2011 EGD PAST SURGICAL HISTORY OF age 20 gland removed from under chin THYROID LEFT FINE NEEDLE ASPIRATION 12/30/07 U/S FNA Bilateral thyroid nodules THYROIDECTOMY SUBTOTAL/PARTIAL 05/2012 partial TONSILLECTOMY PRIMARY/SECONDARY Tonsillectomy FAMILY HISTORY Problem Relation Age of Onset Arrythmias Mother atrial fibrillation Osteoporosis Mother Aneurysm Mother 68 ruptured Diabetes Mother Heart Father cardiac arrest after gall bladder surgery Diabetes Brother Arrhythmia Brother atrial fibrillation ALLERGIES Allergen Reactions Sutures Itching Actonel [Risedronat* GI Upset States had GI bleed Adhes. Gycw-Uprn-Zz* Beets Rash raised injection site when allergy tested Cantaloupe Hives Eggplant Hives Fosamax [Alendronat* GI Upset States had GI bleed Mobic [Meloxicam] Other: See Comments Edema, HTN Mold Hives Neurontin [Gabapent* Other: See Comments muscle spasms Penicillins Pork Intolerance Wheat Gluten Hives Yeast, Dried Hives Current Facility-Administere d Medications Medication Dose Route Frequency Provider Last Rate Last Admin NaCl 0.9% iv flush bag 20 mL INTRAVENOUS PRN Figueroa Rodriguez DO modafinil 100 mg tab(s) (PROVIGIL) 100 mg ORA (more content not included)... Normal [facility] CT ABD/PEL W IVCONon 025 CT ABD/PEL W IVCON * * *Final Report* * * DATE OF EXAM: Jun 27 2024 6:20AM [facility] 0530 - CT ABD/PEL W IVCON / PROCEDURE REASON: Trauma * * * * Physician Interpretation * * * * EXAMINATION: CT ABDOMEN AND PELVIS WITH IV CONTRAST. CT thoracic and CT lumbar spine. CLINICAL HISTORY: Fall. Back pain. Back trauma. Bilateral rib and L1-L2 fracture TECHNIQUE: CT of the abdomen and pelvis was performed using standard technique, scanning from just above the dome of the diaphragm to the symphysis pubis. Reconstructed images of the lumbar spine. Axial contiguous noncontrast images of the thoracic spine. MQ: CTAP_3 Contrast: IV: 100 ml of Omnipaque 350 : ml of CT Radiation dose: Integrated Dose-length product (DLP) for this visit = 3041 mGy*cm. CT Dose Reduction Employed: Automated exposure control(AEC) and iterative recon COMPARISON: Outside CT chest 06/26/2024 RESULT: Liver: No mass. Biliary: Intra and extrahepatic biliary dilation most likely postcholecystectomy change. Spleen: No mass. No splenomegaly. Pancreas: No mass or duct dilation. Adrenals: No mass. Kidneys: No hydronephrosis. GI tract: No dilation. Colonic diverticulosis. Circumferential bowel wall thickening in the rectum with surrounding stranding in the presacral region. Moderate hiatal hernia. No appendicitis. Lymph nodes: No abdominal or pelvic lymphadenopathy. Mesentery/Peritoneum : No ascites or mass. Retroperitoneum: No mass. Vasculature: Aorta is nonaneurysmal. Pelvis: 2.4 cm right adnexal cyst image 102. Probable uterine fibroid on the right image 107. Bones/Soft Tissues: Old bilateral rib fractures. Right L1 and L2 nondisplaced transverse process fractures. L2 and L3 kyphoplasty with chronic fractures. 9-10 mm retropulsion at L2 and L3. No acute fracture in the thoracic spine. Lower thorax: Bibasilar opacities greater on the right. Localizer images: No additional findings. IMPRESSION: Proctitis. Right L1 and L2 transverse process fractures. Chronic appearing bilateral rib fractures. Bibasilar opacities possible pneumonia on the right. 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: CLINT Transcribe Date/Time: Jun 27 2024 7:30A Dictated by : CHARLIE EDLEON MD This examination was interpreted and the report reviewed and electronically signed by: CHARLIE DELEON MD on Jun 27 2024 7:50AM EST [id number] CN Normal [facility] CT LUMBAR SPINE W RECON DATA -NBon 06-27-2024 CT LUMBAR SPINE W RECON DATA -NB * * *Final Report* * * DATE OF EXAM: Jun 27 2024 6:20AM [facility] 0481 - CT LUMBAR SPINE W RECON DATA -NB / PROCEDURE REASON: Spine fracture, lumbar, traumatic * * * * Physician Interpretation * * * * EXAMINATION: CT ABDOMEN AND PELVIS WITH IV CONTRAST. CT thoracic and CT lumbar spine. CLINICAL HISTORY: Fall. Back pain. Back trauma. Bilateral rib and L1-L2 fracture TECHNIQUE: CT of the abdomen and pelvis was performed using standard technique, scanning from just above the dome of the diaphragm to the symphysis pubis. Reconstructed images of the lumbar spine. Axial contiguous noncontrast images of the thoracic spine. MQ: CTAP_3 Contrast: IV: 100 ml of Omnipaque 350 : ml of CT Radiation dose: Integrated Dose-length product (DLP) for this visit = 3041 mGy*cm. CT Dose Reduction Employed: Automated exposure control(AEC) and iterative recon COMPARISON: Outside CT chest 06/26/2024 RESULT: Liver: No mass. Biliary: Intra and extrahepatic biliary dilation most likely postcholecystectomy change. Spleen: No mass. No splenomegaly. Pancreas: No mass or duct dilation. Adrenals: No mass. Kidneys: No hydronephrosis. GI tract: No dilation. Colonic diverticulosis. Circumferential bowel wall thickening in the rectum with surrounding stranding in the presacral region. Moderate hiatal hernia. No appendicitis. Lymph nodes: No abdominal or pelvic lymphadenopathy. Mesentery/Peritoneum : No ascites or mass. Retroperitoneum: No mass. Vasculature: Aorta is nonaneurysmal. Pelvis: 2.4 cm right adnexal cyst image 102. Probable uterine fibroid on the right image 107. Bones/Soft Tissues: Old bilateral rib fractures. Right L1 and L2 nondisplaced transverse process fractures. L2 and L3 kyphoplasty with chronic fractures. 9-10 mm retropulsion at L2 and L3. No acute fracture in the thoracic spine. Lower thorax: Bibasilar opacities greater on the right. Localizer images: No additional findings. IMPRESSION: Proctitis. Right L1 and L2 transverse process fractures. Chronic appearing bilateral rib fractures. Bibasilar opacities possible pneumonia on the right. 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: PSCB Transcribe Date/Time: Jun 27 2024 7:30A Dictated by : CHARLIE DELEON MD This examination was interpreted and the report reviewed and electronically signed by: CHARLIE DELEON MD on Jun 27 2024 7:50AM EST [id number] CN Normal [facility] CT THORACIC SPINE WO IVCONon 06-27-2024 CT THORACIC SPINE WO IVCON * * *Final Report* * * DATE OF EXAM: Jun 27 2024 6:20AM [facility] 0514 - CT THORACIC SPINE WO IVCON / PROCEDURE REASON: Spine fracture, thoracic, traumatic * * * * Physician Interpretation * * * * EXAMINATION: CT ABDOMEN AND PELVIS WITH IV CONTRAST. CT thoracic and CT lumbar spine. CLINICAL HISTORY: Fall. Back pain. Back trauma. Bilateral rib and L1-L2 fracture TECHNIQUE: CT of the abdomen and pelvis was performed using standard technique, scanning from just above the dome of the diaphragm to the symphysis pubis. Reconstructed images of the lumbar spine. Axial contiguous noncontrast images of the thoracic spine. MQ: CTAP_3 Contrast: IV: 100 ml of Omnipaque 350 : ml of CT Radiation dose: Integrated Dose-length product (DLP) for this visit = 3041 mGy*cm. CT Dose Reduction Employed: Automated exposure control(AEC) and iterative recon COMPARISON: Outside CT chest 06/26/2024 RESULT: Liver: No mass. Biliary: Intra and extrahepatic biliary dilation most likely postcholecystectomy change. Spleen: No mass. No splenomegaly. Pancreas: No mass or duct dilation. Adrenals: No mass. Kidneys: No hydronephrosis. GI tract: No dilation. Colonic diverticulosis. Circumferential bowel wall thickening in the rectum with surrounding stranding in the presacral region. Moderate hiatal hernia. No appendicitis. Lymph nodes: No abdominal or pelvic lymphadenopathy. Mesentery/Peritoneum : No ascites or mass. Retroperitoneum: No mass. Vasculature: Aorta is nonaneurysmal. Pelvis: 2.4 cm right adnexal cyst image 102. Probable uterine fibroid on the right image 107. Bones/Soft Tissues: Old bilateral rib fractures. Right L1 and L2 nondisplaced transverse process fractures. L2 and L3 kyphoplasty with chronic fractures. 9-10 mm retropulsion at L2 and L3. No acute fracture in the thoracic spine. Lower thorax: Bibasilar opacities greater on the right. Localizer images: No additional findings. IMPRESSION: Proctitis. Right L1 and L2 transverse process fractures. Chronic appearing bilateral rib fractures. Bibasilar opacities possible pneumonia on the right. 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: [facility]PITALBrian Transcribe Date/Time: Jun 27 2024 7:30A Dictated by : CHARLIE DELEON MD This examination was interpreted and the report reviewed and electronically signed by: CHARLIE DELEON MD on Jun 27 2024 7:50AM EST [id number] CN Normal [facility] CTA HEAD W IVCONon 5 CTA HEAD W IVCON * * *Final Report* * * DATE OF EXAM: Jun 27 2024 6:20AM [facility] 0022 - CTA HEAD W IVCON / PROCEDURE REASON: Tracheal trauma (strangulation) * * * * Physician Interpretation * * * * EXAMINATION: CTA HEAD W IVCON, CTA NECK W IVCON HISTORY: Trauma. TECHNIQUE: Spiral high resolution axial images were obtained through the head, neck and superior mediastinum following bolus administration of intravenous contrast for CT angiography. 3D maximum intensity projection images were created, reviewed and archived . MQ: CTAHN_4 Contrast: 100 mL Omnipaque [address] Radiation dose: Integrated Dose-Length Product (DLP) for this visit = 3041 mGy*cm. CT Dose Reduction Employed: Automated exposure control(AEC) and iterative recon COMPARISON: None. RESULT: BRAIN: Evaluation of the individual slices of the CTA demonstrates no evidence of an acute stroke. ASPECT Score = 10 Hemorrhage: No clear evidence of acute intracranial hemorrhage within the constraints of this contrast enhanced acquisition. ECASS hemorrhagic transformation score: Not Applicable NECK: Soft tissues: The soft tissue planes are maintained throughout. No evidence of a soft tissue mass in the neck or superior mediastinum. No significant lymphadenopathy is seen. Atrophic or absent right thyroid lobe. Multiple subcentimeter nodules within the left thyroid lobe. Spine: Alignment is normal. Mild degenerative changes are present. Lung apices: The visualized lung apices are clear. CT ARTERIOGRAM: Extracranial Circulation: Aortic Arch: There is a normal branching pattern from the aortic arch. There is no significant stenosis in the proximal brachiocephalic vessels. Carotid Stenosis: Right Common: No significant stenosis. Right Internal Carotid Plaque: Mild plaque formation. Right Internal Carotid Stenosis (% by NASCET Criteria): 30%. Left Common: No significant stenosis. Left Internal Carotid Plaque: Minimal plaque formation. Left Internal Carotid Stenosis (% by NASCET Criteria): None. Cervical Vertebral Arteries: Patency: Bilateral Dominance: Codominant Intracranial Circulation: Anterior Circulation: No large vessel occlusion or aneurysm. Vertebrobasilar Circulation: No large vessel occlusion or aneurysm. Folder Machine Adjuster (topogram) images: No significant findings. IMPRESSION: 1. No intracranial large vessel occlusion or aneurysm. 2. No blunt vascular injury or hemodynamically significant stenosis of the common carotid, internal carotid, or vertebral arteries. Arterial blood flow was measured to detect acute large vessel occlusion by computer aided detection software: Not Performed. Concordance between software and imaging review: Not Applicable. 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: CLINT Transcribe Date/Time: Jun 27 2024 6:45A Dictated by : JOSE LÓPEZ MD This examination was interpreted and the report reviewed and electronically signed by: JOSE LÓPEZ MD on Jun 27 2024 6:51AM EST [id number] CN Normal [facility] CTA NECK W IVCONon 5 CTA NECK W IVCON * * *Final Report* * * DATE OF EXAM: Jun 27 2024 6:20AM [facility] 0024 - CTA NECK W IVCON / PROCEDURE REASON: Tracheal trauma (strangulation) * * * * Physician Interpretation * * * * EXAMINATION: CTA HEAD W IVCON, CTA NECK W IVCON HISTORY: Trauma. TECHNIQUE: Spiral high resolution axial images were obtained through the head, neck and superior mediastinum following bolus administration of intravenous contrast for CT angiography. 3D maximum intensity projection images were created, reviewed and archived . MQ: CTAHN_4 Contrast: 100 mL Omnipaque [address] Radiation dose: Integrated Dose-Length Product (DLP) for this visit = 3041 mGy*cm. CT Dose Reduction Employed: Automated exposure control(AEC) and iterative recon COMPARISON: None. RESULT: BRAIN: Evaluation of the individual slices of the CTA demonstrates no evidence of an acute stroke. ASPECT Score = 10 Hemorrhage: No clear evidence of acute intracranial hemorrhage within the constraints of this contrast enhanced acquisition. ECASS hemorrhagic transformation score: Not Applicable NECK: Soft tissues: The soft tissue planes are maintained throughout. No evidence of a soft tissue mass in the neck or superior mediastinum. No significant lymphadenopathy is seen. Atrophic or absent right thyroid lobe. Multiple subcentimeter nodules within the left thyroid lobe. Spine: Alignment is normal. Mild degenerative changes are present. Lung apices: The visualized lung apices are clear. CT ARTERIOGRAM: Extracranial Circulation: Aortic Arch: There is a normal branching pattern from the aortic arch. There is no significant stenosis in the proximal brachiocephalic vessels. Carotid Stenosis: Right Common: No significant stenosis. Right Internal Carotid Plaque: Mild plaque formation. Right Internal Carotid Stenosis (% by NASCET Criteria): 30%. Left Common: No significant stenosis. Left Internal Carotid Plaque: Minimal plaque formation. Left Internal Carotid Stenosis (% by NASCET Criteria): None. Cervical Vertebral Arteries: Patency: Bilateral Dominance: Codominant Intracranial Circulation: Anterior Circulation: No large vessel occlusion or aneurysm. Vertebrobasilar Circulation: No large vessel occlusion or aneurysm. Folder Machine Adjuster (topogram) images: No significant findings. IMPRESSION: 1. No intracranial large vessel occlusion or aneurysm. 2. No blunt vascular injury or hemodynamically significant stenosis of the common carotid, internal carotid, or vertebral arteries. Arterial blood flow was measured to detect acute large vessel occlusion by computer aided detection software: Not Performed. Concordance between software and imaging review: Not Applicable. 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: CLINT Transcribe Date/Time: Jun 27 2024 6:45A Dictated by : JOSE LÓPEZ MD This examination was interpreted and the report reviewed and electronically signed by: JOSE LÓPEZ MD on Jun 27 2024 6:51AM EST [id number] CN Normal [facility] Calcium.ionized [Moles/Vol]o n 06-27-2024 Calcium.ionized (BldV) [Mass/Vol] 1.11 mmol/L Normal 1.08-1.30 [facility] Comment on above: Order Comment: Speci men Type: BLOOD SPECIMENOrdering Facility: [facility] Address: [address] [place] [address] Performed By: #### 1 995-0 ####[facility]ATORYCLIA [id number] [address] Calcium.ionized adjusted to pH 7.4 (Bld) [Moles/Vol] 1.14 mmol/L Normal 1.08-1.30 [facility] Comment on above: Order Comment: Speci men Type: BLOOD SPECIMENOrdering Facility: [facility] Address: [address] [place] [address] Performed By: #### 1 995-0 ####[facility]ITAL[facility] [id number] [address] Comprehensive metabolic 2000 panelon 06-27-2024 Albumin [Mass/Vol] 3.1 g/dL Low 3.9-4.9 [facility] Comment on above: Order Comment: Speci men Type: BLOOD SPECIMENOrdering Facility: [facility] Address: [address] [place] [address] Performed By: #### 2 777-1, 43145-1, 3040-3, 24538-1 ####[facility]ATORYCLIA [id number] [address] STATES OF [facility] ALP [Catalytic activity/Vol] 56 U/L Normal 34-123 [facility] Comment on above: Order Comment: Speci men Type: BLOOD SPECIMENOrdering Facility: [facility] Address: [address] [place] [address] Performed By: #### 2 777-1, 54566-6, 3040-3, 13763-3 ####[facility]ORYCLIA [id number] [address] ALT With P-5'-P [Catalytic activity/Vol] 10 U/L Normal 7-38 [facility] Comment on above: Order Comment: Speci men Type: BLOOD SPECIMENOrdering Facility: [facility] Address: [address] [place] [address] Performed By: #### 2 777-1, 98077-6, 3040-3, 12252-8 ####[facility]ATORYCLIA [id number] [place] [address] [place] Anion gap [Moles/Vol] 9 mmol/L Normal 8-15 [facility] Comment on above: Order Comment: Speci men Type: BLOOD SPECIMENOrdering Facility: [facility] Address: [address] [place] [address] Performed By: #### 2 777-1, 02324-1, 3039-3, 89940-8 ####[facility]ATORYCLIA [id number] [place] [address] [place] AST With P-5'-P [Catalytic activity/Vol] 22 U/L Normal 13-35 [facility] Comment on above: Order Comment: Speci men Type: BLOOD SPECIMENOrdering Facility: [facility] Address: [address] [place] [address] Performed By: #### 2 777-1, 20207-0, 3040-3, 11004-5 ####[facility]ATORYCLIA [id number] [place] [address] [place] Bilirubin [Mass/Vol] 0.4 mg/dL Normal 0.2-1.3 [facility] Comment on above: Order Comment: Speci men Type: BLOOD SPECIMENOrdering Facility: [facility] Address: [address] [place] [address] Performed By: #### 2 777-1, 12776-9, 3039-3, 53315-5 ####[facility]ATORYCLIA [id number] [place] [address] [place] Calcium [Mass/Vol] 8.5 mg/dL Normal 8.5-10.2 [facility] Comment on above: Order Comment: Speci men Type: BLOOD SPECIMENOrdering Facility: [facility] Address: [address] [place] [address] Performed By: #### 2 777-1, 82361-2, 3, 54465-0 ####[facility]ATORYCLIA [id number] [place] [address] [place] Chloride [Moles/Vol] 98 mmol/L Normal 98-107 [facility] Comment on above: Order Comment: Speci men Type: BLOOD SPECIMENOrdering Facility: [facility] Address: [address] [place] [address] Performed By: #### 2 777-1, , 3, 89522-9 ####[facility]ITALCLIA [id number] [place] [address] [place] CO2 [Moles/Vol] 31 mmol/L High 22-30 [facility] Comment on above: Order Comment: Speci men Type: BLOOD SPECIMENOrdering Facility: [facility] Address: [address] [place] [address] Performed By: #### 2 777-1, , 3, 65983-1 ####[facility]ATORYCLIA [id number] [address] [place] Creatinine [Mass/Vol] 0.86 mg/dL Normal 0.58-0.96 [facility] Comment on above: Order Comment: Speci men Type: BLOOD SPECIMENOrdering Facility: [facility] Address: [address] [place] [address] Performed By: #### 2 777-1, 29613-0, 3, 03779-5 ####[facility]ATORYCLIA [id number] [address] Creatinine and Glomerular filtration rate.predicted panel (S/P/Bld) 65 mL/min/1.73m??? Normal >=60 [facility] Comment on above: Order Comment: Speci men Type: BLOOD SPECIMENOrdering Facility: [facility] Address: [address] [place] [address] Result Comment: Michael mated Glomerular Filtration Rate (eGFR) is calculated using the 2020 CKD-EPI creatinine equation. This equation utilizes serum creatinine, sex, and age as parameters. The creatinine assay has traceable calibration to isotope dilution-mass spectrometry. Refer to KDIGO guidelines for clinical interpretation. In patients with unstable renal function, e.g. those with acute kidney injury, the eGFR may not accurately reflect actual GFR. Performed By: #### 2 777-1, 49866-6, 0-3, 42674-9 ####[facility]PITALCLIA [id number] [place] [id number] [place] Glucose [Mass/Vol] 88 mg/dL Normal 74-99 [facility] Comment on above: Order Comment: Christopher hurd Type: BLOOD SPECIMENOrdering Facility: [facility] Address: [address] [place] [address] Result Comment: The [place] Diabetes Association (ADA) provides guidance for cutoff values for fasting glucose and random glucose. The ADA defines fasting as no caloric intake for at least 8 hours. Fasting plasma glucose results between 100 to 125 mg/dL indicate increased risk for diabetes (prediabetes). Fasting plasma glucose results greater than or equal to 126 mg/dL meet the criteria for diagnosis of diabetes. In the absence of unequivocal hyperglycemia, results should be confirmed by repeat testing. In a patient with classic symptoms of hyperglycemia or hyperglycemic crisis, random plasma glucose results greater than or equal to 200 mg/dL meet the criteria for diagnosis of diabetes. Reference: Standards of Medical Care in Diabetes 2016, [place] [employer]. Diabetes Care. 2016.39(Suppl 1). Performed By: #### 2 777-1, 05521-0, 0-3, 56995-2 ####[facility]ATORYCLIA [id number] [place] [id number] [place] Potassium [Moles/Vol] 3.3 mmol/L Low 3.7-5.1 [facility] Comment on above: Order Comment: Christopher hurd Type: BLOOD SPECIMENOrdering Facility: [facility] Address: [address] [place] [address] Performed By: #### 2 777-1, 77717-4, 3040-3, 24117-7 ####[facility]ATORYCLIA [id number] [place] [address] [place] Protein [Mass/Vol] 5.2 g/dL Low 6.3-8.0 [facility] Comment on above: Order Comment: Speci men Type: BLOOD SPECIMENOrdering Facility: [facility] Address: [address] [place] [address] Performed By: #### 2 777-1, 27132-3, 3040-3, 55210-2 ####[facility]ORATORYCLIA [id number] [place] [address] [place] Sodium [Moles/Vol] 138 mmol/L Normal 136-144 [facility] Comment on above: Order Comment: Speci men Type: BLOOD SPECIMENOrdering Facility: [facility] Address: [address] [place] [address] Performed By: #### 2 777-1, 75677-6, 3040-3, 36563-9 ####[facility]ORATORYCLIA [id number] [place] [id number] [place] Urea nitrogen [Mass/Vol] 16 mg/dL Normal 7-21 [facility] Comment on above: Order Comment: Speci men Type: BLOOD SPECIMENOrdering Facility: [facility] Address: [address] [place], [place] [address] Performed By: #### 2 777-1, 25458-6, 3040-3, 54508-9 ####[facility]ORATORYCLIA [id number] [place] [address] [place] ED NOTEon 06-27-2024 ED NOTE HNO ID: [id number] Author: ROLA JIMENEZ RN Service: Emergency Medicine Author Type: Registered Nurse Type: ED Notes Filed: 06/27/2024 16:39 Note Text: Pt placed on bedpan however did not have a bowel movement. Pads changed and pt given new sheet and pad. Some urine staining noted on pad. Normal [facility] ED NOTE HNO ID: [id number] Author: ROLA JIMENEZ, RN Service: Emergency Medicine Author Type: Registered Nurse Type: ED Notes Filed: 06/27/2024 14:44 Note Text: Pt eating lunch tray Normal [facility] ED NOTE HNO ID: [id number] Author: ROLA JIMENEZ, RN Service: Emergency Medicine Author Type: Registered Nurse Type: ED Notes Filed: 06/27/2024 13:56 Note Text: Pt requested BP cuff be removed Normal [facility] ED NOTE HNO ID: [id number] Author: MARTHA KYLE, ALBERT Service: Nursing Author Type: Registered Nurse Type: ED Notes Filed: 06/27/2024 00:14 Note Text: Spoke with Dr. Hernandez about pts Bps. He is aware and did say looking through history this is what the pt typically runs. Will continue to monitor. Normal [facility] ED PROV NOTEon 06-27-2024 ED PROV NOTE HNO ID: [id number] Author: NORMA WONG MD Service: Emergency Medicine Author Type: Physician Type: ED Provider Notes Filed: 06/27/2024 02:43 Note Text: ED Resident Continuation of Care Note June 27, 2024 1:50 AM Joyce Solomon was endorsed to me by Dr. Concepcion. In brief, the patient is an 89-year-old female transfer from [place] for trauma. Found to have left 3-8 rib fractures. Right lower extremity weakness baseline. Likely trauma admission. Initial HPI, laboratory studies, and imaging reviewed. Pending: Consults: Trauma surgery Labs: N/A Imaging: N/A Plan/Expected Disposition: At the time of the patient's sign-out, final disposition of the patient is pending surgery consultation. Continued MDM/ED Course AND Plan: As noted by previous team, patient was likely ED diagnoses include multiple left-sided rib fractures and transverse process fracture of lumbar vertebra. Following evaluation by general surgery, patient was admitted to surgical ICU under Dr. Harris in hemodynamically vitally stable condition. Gertrudis Hernandez MD Emergency Medicine Resident, PGY-3 [facility] This note was created using Klick2Contact dictation software. Every attempt was made to proofread, however you may find errors regardless of how insignificant they may be. They are purely unintentional and if there are any concerns regarding this dictation, please do not hesitate to call the dictating provider for clarification. GERTRUDIS HERNANDEZ 06/27/24 0152 MD [place] D 06/27/24 0243 Normal [facility] Ethanol SerPl-mCncon 025 Ethanol [Mass/Vol] mg/dL Normal <11 [facility] Comment on above: Order Comment: Speci men Type: BLOOD SPECIMENOrdering Facility: [facility] Address: [address] [place] [address] Performed By: #### 5 643-2 ####[facility]ATORYCLIA [id number] [place] [id number] [place] HISTORY PHYSICALon HISTORY PHYSICAL HNO ID: [id number] Author: AYAZ DOE MD Service: General Surgery Author Type: Resident Type: H&P Filed: 07/07/2024 10:12 Note Text: Attestation signed by Ayaz Doe MD at 07/07/2024 10:12 AM Attending Note I personally saw and examined the patient on 06/27/24. I reviewed the resident's note. I agree with the resident's assessment and plan unless otherwise noted. Ayaz Doe MD I provided 30 minutes of critical care services which were necessary due to above specified injuries and illnesses. This patient has a high probability of sudden, clinical significant deterioration, which required the highest level of care and preparedness to intervene urgently. I managed and supervised life or organ supporting interventions that require frequent assessments. This time does not include time devoted to teaching and to any procedure I billed separately. I have personally seen and examined this patient and participated in the draper components of this encounter with the multi-disciplinary ICU team. I discussed the management of this case with the resident and reviewed/confirmed their documentation, attached or in separate note. I personally reviewed today's actual images, the associated image reports, and current labs. I supervised the ordering of additional testing, imaging, labs, and/or consultations. The patient and/or family were fully informed of the findings and plan of care. They had the opportunity to ask questions and raise any issues of concern, all of which were answered and dealt with by me to their stated satisfaction. The critical care treatment was mainly directed to address the following current issues: Active Hospital Problems Diagnosis Date Noted Closed fracture of multiple ribs of left side 06/27/2024 Closed compression fracture of second lumbar vertebra (HCC) 06/28/2024 Acute pain due to trauma 06/28/2024 Acute respiratory insufficiency 06/28/2024 At risk for delirium 06/28/2024 Frailty syndrome in geriatric patient 06/28/2024 Closed nondisplaced fracture of fifth right metatarsal bone 06/27/2024 Closed fracture of transverse process of lumbar vertebra (HCC) 06/27/2024 Ground-level fall 06/27/2024 Status post kyphoplasty 06/27/2024 Mild protein-calorie malnutrition (HCC) 05/13/2024 Management included sedation, pain control and ventilation assessment including need for ventilator, weaning and/or extubation as indicated. Management of critical care illnesses are edited above by me, including system by system plan and are not only limited to infectious disease and tailoring the antibiotic therapy, nutrition assessment and supplementation, electrolyte correction and prevention of ICU related complications using ventilator bundle, sedation holiday and assessment and removal of lines and tubes where indicated. SIGNATURE: Ayaz Doe MD PATIENT NAME: Joyce Solomon Surgical Intensive Care Unit Consult Note SERVICE DATE: 06/27/2024 SERVICE TIME: 3:52 AM REASON FOR CONSULT: poor pull on IS Subjective 89 year old female with PMHx of pAF (no AC), HTN, osteoprosis, NEL (BIPAP @ night). Trauma consult for GLF on 06/26. Patient fell from ground-level at home. Denies loss of consciousness. Denies head injury. Patient's main complaint is left-sided chest pain. Multiple recent falls, including 1 within the last couple of weeks that resulted in her anticoagulation for atrial fibrillation to be held. She has had falls in the past that have caused multiple rib fractures partially contributed by her osteoporosis. Patient GCS is 15. On exam she has tenderness to palpation primarily on the left sided chest. She has bilateral lower extremity edema that is significant. According the patient this is all chronic in nature. Her bilateral lower extremities are painful to touch. There is also a red rash on the distal portion of the extremities that is chronic. Patient is pulling approximately 1 L on incentive spirometer when assessed. PI/CHIEF COMPLAINT: Ground-level fall on 06-26 BRIEF DESCRIPTION OF INJURIES: R 5th metatarsal fx, R L1 and L2 TP fx, L 1st, 3rd -8th rib fx (chronic 8-10), age indeterminate R 8-10 rib fx LAST FLUIDS/MEAL: Unknown PAST MEDICAL HISTORY Diagnosis Date Abdominal pain, unspecified site Abdominal pain, unspecified site Depression Dyslipidemia Flatulence, eructation, and gas pain Fracture L shoulder (2007), Sacral stress fracture; R wrist Hypertension Mitral valve prolapse Obstructive sleep apnea Osteoporosis, unspecified 01/30/2005 Other symptoms involving digestive system(787.99) PAF (paroxysmal atrial fibrillation) (HCC) 10/20/2013 Thyroid disorder PAST SURGICAL HISTORY Procedure Laterality Date APPENDECTOMY CHOLECYSTECTOMY (more content not included)... Normal [facility] HISTORY PHYSICAL HNO ID: [id number] Author: KAYLEEN BELTRAN MD Service: General Surgery Author Type: Physician Type: H&P Filed: 06/27/2024 14:21 Note Text: [facility]: 06/26/2024 ARRIVAL TIME: PM CATEGORY: Trauma consult INJURY DATE: 06/26/23 INJURY TIME: PM Subjective 89 year old female with PMHx of pAF (no AC), HTN, osteoprosis, NEL (BIPAP @ night). Trauma consult for GLF on 06/26. Patient fell from ground-level at home. Denies loss of consciousness. Denies head injury. Patient's main complaint is left-sided chest pain. Multiple recent falls, including 1 within the last couple of weeks that resulted in her anticoagulation for atrial fibrillation to be held. She has had falls in the past that have caused multiple rib fractures partially contributed by her osteoporosis. Patient GCS is 15. On exam she has tenderness to palpation primarily on the left sided chest. She has bilateral lower extremity edema that is significant. According the patient this is all chronic in nature. Her bilateral lower extremities are painful to touch. There is also a red rash on the distal portion of the extremities that is chronic. Patient is pulling approximately 1 L on incentive spirometer when assessed. HPI/CHIEF COMPLAINT: Ground-level fall on 06-26 BRIEF DESCRIPTION OF INJURIES: R 5th metatarsal fx, R L1 and L2 TP fx, L 1st, 3rd -8th rib fx (chronic 8-10), age indeterminate R 8-10 rib fx LAST FLUIDS/MEAL: Unknown CODE STATUS: Patient wishes to be DNR/DNI ALLERGIES Allergen Reactions Sutures Itching Actonel [Risedronat* GI Upset States had GI bleed Adhes. [id number]-Qj* Beets Rash raised injection site when allergy tested Cantaloupe Hives Eggplant Hives Fosamax [Alendronat* GI Upset States had GI bleed Mobic [Meloxicam] Other: See Comments Edema, HTN Mold Hives Neurontin [Gabapent* Other: See Comments muscle spasms Penicillins Pork Intolerance Wheat Gluten Hives Yeast, Dried Hives (Not in a hospital admission) DATE OF LAST TETANUS: Unknown Immunization History Administered Date(s) Administered COVID-19 original vaccine, full dose, monovalent (MODERNA) 06/09/2020 07/07/2020 03/16/2021 08/11/2021 COVID-19 vaccine, age 12+ yr, bivalent (MODERNA) 02/19/2022 TD Adult 05/12/2003 06/09/2013 influenza (IIV3) vaccine, age 6 mo - 64 yr, trivalent (AFLURIA, FLULAVAL, FLUVIRIN, FLUZONE) 01/12/2014 influenza vaccine, unspecified formulation 02/22/2004 02/26/2005 03/11/2007 03/18/2008 02/26/2010 02/28/2011 02/08/2012 02/13/2013 pneumococcal polysaccharide (PPV23) vaccine, 23 valent (PNEUMOVAX 23) 02/09/2005 PAST MEDICAL HISTORY Diagnosis Date Abdominal pain, unspecified site Abdominal pain, unspecified site Depression Dyslipidemia Flatulence, eructation, and gas pain Fracture L shoulder (2008), Sacral stress fracture; R wrist Hypertension Mitral valve prolapse Obstructive sleep apnea Osteoporosis, unspecified 01/30/2005 Other symptoms involving digestive system(787.99) PAF (paroxysmal atrial fibrillation) (HCC) 10/20/2013 Thyroid disorder PAST SURGICAL HISTORY Procedure Laterality Date APPENDECTOMY CHOLECYSTECTOMY COLONOSCOPY FLX DX W/COLLJ SPEC WHEN PFRMD 06-12-06 Repeat in COLONOSCOPY FLX DX W/COLLJ SPEC WHEN PFRMD 12/31/2011 Colonoscopy ESOPHAGOGASTRODUODEN OSCOPY TRANSORAL DIAGNOSTIC 12/31/2011 EGD PAST SURGICAL HISTORY OF age 20 gland removed from under chin THYROID LEFT FINE NEEDLE ASPIRATION 12/30/07 U/S FNA Bilateral thyroid nodules THYROIDECTOMY SUBTOTAL/PARTIAL 05/2012 partial TONSILLECTOMY PRIMARY/SECONDARY Tonsillectomy Social History Tobacco Use Smoking status: Never Smokeless tobacco: Never Substance Use Topics Alcohol use: No Drug use: No FAMILY HISTORY Problem Relation Age of Onset Arrythmias Mother atrial fibrillation Osteoporosis Mother Aneurysm Mother 68 ruptured Diabetes Mother Heart Father cardiac arrest after gall bladder surgery Diabetes Brother Arrhythmia Brother atrial fibrillation ROS: Is the patient having any pain? No 0 on a scale of 0 to 10 Constitutional: Negative Eye/Ear/Nose: Negative Respiratory: Negative Cardiovascular: Negative GI/Liver/Biliary: Negative Genitourinary: Negative Psychiatric: Negative Neurologic: Negative Musculoskeletal: Negative Integument: Negative Endocrine: Negative Heme/Lymph: Negative Objective PRIMARY SURVEY AIRWAY: Patent BREATHING: Breath sounds equal CIRCULATION: PT/DP 2+, Radials 2+, Femoral 2+ DISABILITY: Eye: 4=Spontaneous Verbal: 5=Oriented and Converses Motor: 6=Obeys Commands Total GCS: 15=4 Resp Rate: 10 to 29=4 Syst BP: > than 89=4 REVISED TRAUMA SCORE: 12 EXPOSE / ENVIRONMENT: Warm Blankets PROCEDURES: None SECONDARY SURVEY VITALS: 06/26/24 2200 06/26/24 2300 06/27/24 0000 06/27/24 0110 BP: (!) 168/49 (!) 131/41 (!) 128/31 (!) 141/42 Pulse: 70 61 59 63 (more content not included)... Normal [facility] Lipase SerPl-cCncon 06-27-19 25 Lipase [Catalytic activity/Vol] 14 U/L Low 16-61 [facility] Comment on above: Order Comment: Christopher hurd Type: BLOOD SPECIMENOrdering Facility: [facility] Address: [address] [place] [address] Performed By: #### 2 777-1, 24719-5, 3040-3, 23615-2 ####[facility] LABORATORYCLIA [id number] [address] Magnesium SerPl-mCncon 06-27 Magnesium [Mass/Vol] 1.7 mg/dL Normal 1.7-2.3 [facility] Comment on above: Order Comment: Christopher hurd Type: BLOOD SPECIMENOrdering Facility: [facility] Address: [address] [place] [address] Performed By: #### 2 777-1, 81604-9, 3040-3, 60930-2 ####[facility] LABORATORYCLIA [id number] [address] OF [facility] PT panel Coag (PPP)on 2024 INR Coag (PPP) [Relative time] 1.0 {INR} Normal 0.9-1.3 [facility] Comment on above: Order Comment: Christopher hurd Type: BLOOD SPECIMENOrdering Facility: [facility] Address: [address] [place] [address] Result Comment: Nathalie min K Antagonist (VKA) Therapeutic Range: INR 2 to 3 (Target INR of 2.5) Note: For patients treated with VKA drugs, such as warfarin, the [employer] 2012 Guideline recommends a therapeutic INR range of 2 to 3 (target INR of 2.5). This recommendation includes high-risk patients with antiphospholipid syndrome with previous arterial or venous thromboembolism, current-generation mechanical or bioprosthetic aortic heart valve replacement. Note: Patients with mechanical aortic valve replacement and additional risk factors for thromboembolic events (atrial fibrillation, previous thromboembolism, LV dysfunction, hypercoagulable conditions) or an older generation mechanical AVR (i.e., ball in-Cage) or any mechanical MVR should have a INR therapeutic range of 2.5 to 3.5 (target INR of 3). Mikaela RAO, et al. Chest 2012, 141:7S-47S Cam RA, et al. [facility] 2017, 70: 252-289 Performed By: #### 1 4979-9, 33551-4 ####[facility] LABORATORYCLIA [id number] [place] [address] [place] PT Coag (PPP) [Time] 11.2 s Normal 9.7-13.0 [facility] Comment on above: Order Comment: Speci men Type: BLOOD SPECIMENOrdering Facility: [facility] Address: [address] [place] [address] Performed By: #### 1 4979-9, 35543-9 ####[facility]ITALCLIA [id number] [address] [place] Phosphate SerPl-mCncon 06-27 Phosphate [Mass/Vol] 3.5 mg/dL Normal 2.7-4.8 [facility] Comment on above: Order Comment: Speci men Type: BLOOD SPECIMENOrdering Facility: [facility] Address: [address] [place] [address] Performed By: #### 2 777-1, 08293-0, 3040-3, 47652-2 ####[facility] H[facility]PITALCLIA [id number] [place] [address] [place] STAPHYLOCOCCUS AUREUS AND MR SA SCREEN, PCR, NASALon 06-27-2024 S. aureus and MRSA panel RHYS+probe (Nose) Not detected Normal Not Detected [facility] Comment on above: Order Comment: Speci men Type: SWABOrdering Facility: [facility] Address: [address] [place] [address] Performed By: #### S APCR ####[facility] LABORATORYCLIA [id number] [place] [address] [place] TOXICOLOGY SCREEN, ROUTINE U RINEon 06-27-2024 Amphetamines Confirm (U) [Mass/Vol] Negative Normal Negative [facility] Comment on above: Order Comment: Speci men Type: URINE SPECIMENOrdering Facility: [facility] Address: [address] [place] [address] Result Comment: Cuto ff threshold at 1000 ng/mL. Performed By: #### U TOX2 ####[facility]ATORYCLIA [id number] [place] [address] [place] BARBITURATES, URINE Negative Normal Negative [facility] Comment on above: Order Comment: Speci men Type: URINE SPECIMENOrdering Facility: [facility] Address: [address] [place] [address] Result Comment: Cuto ff threshold at 200 ng/mL. Performed By: #### U TOX2 ####[facility]ATORYCLIA [id number] [place] [address] [place] BENZODIAZEPINES, UR Negative Normal Negative [facility] Comment on above: Order Comment: Speci men Type: URINE SPECIMENOrdering Facility: [facility] Address: [address] [place] [address] Result Comment: Cuto ff threshold at 200 ng/mL. Performed By: #### U TOX2 ####[facility] LABORATORYCLIA [id number] [place] [address] [place] [facility] Cannabinoids Screen Ql (U) Negative Normal Negative [facility] Comment on above: Order Comment: Speci men Type: URINE SPECIMENOrdering Facility: [facility] Address: [address] [place] [address] Result Comment: Cuto ff threshold at 50 ng/mL. Performed By: #### U TOX2 ####[facility]ATORYCLIA [id number] [place] [address] [place] Cocaine Ql (U) Negative Normal Negative [facility] Comment on above: Order Comment: Speci men Type: URINE SPECIMENOrdering Facility: [facility] Address: [address] [place] [address] Result Comment: Cuto ff threshold at 300 ng/mL. Performed By: #### U TOX2 ####[facility]ATORYCLIA [id number] [place] [address] [place] Ethanol (U) [Mass/Vol] <11 Normal <11 [facility] Comment on above: Order Comment: Speci men Type: URINE SPECIMENOrdering Facility: [facility] Address: [address] [place] [address] Performed By: #### U TOX2 ####[facility] LABORATORYCLIA [id number] [address] OF [place] Opiates Screen Ql (U) Negative Normal Negative [facility] Comment on above: Order Comment: Speci men Type: URINE SPECIMENOrdering Facility: [facility] Address: [address] [place] [address] Result Comment: Cuto ff threshold at 300 ng/mL. Performed By: #### U TOX2 ####[facility] LABORATORYCLIA [id number] [address] oxyCODONE cutoff Screen (U) [Mass/Vol] Negative Normal Negative [facility] Comment on above: Order Comment: Speci men Type: URINE SPECIMENOrdering Facility: [facility] Address: [address] [place] [address] Performed By: #### U TOX2 ####[facility] LABORATORYCLIA [id number] [address] Phencyclidine Ql (U) Negative Normal Negative [facility] Comment on above: Order Comment: Speci men Type: URINE SPECIMENOrdering Facility: [facility] Address: [address] [place] [address] Result Comment: Cuto ff threshold at 25 ng/mL. Performed By: #### U TOX2 ####[facility] LABORATORYCLIA [id number] [address] [place] TYPE + SCREENon 06-27-2024 ABO A Normal [facility] Comment on above: Order Comment: Speci men Type: BLOOD SPECIMENOrdering Facility: [facility] Address: [address] [place] [address] Performed By: #### T SCR ####[facility] BLOOD BANKCLIA [id number] [place] [address] [place] Rh Nom (Bld) Positive Normal [facility] Comment on above: Order Comment: Speci men Type: BLOOD SPECIMENOrdering Facility: [facility] Address: [place] [id number] Performed By: #### T SCR ####[facility] BLOOD BANKCLIA [id number] [place] [address] [facility] TYPE AND SCREEN EXPIRATION 06/30/2024 23:59 Normal [facility] Comment on above: Order Comment: Speci men Type: BLOOD SPECIMENOrdering Facility: [facility] Address: [address] [place], [place] [address] Performed By: #### T SCR ####[facility] BLOOD BANKCLIA [id number] [place] [address] [facility] XR CHEST 2V FRONTAL/LATon XR CHEST 2V FRONTAL/LAT * * *Final Repor t* * * DATE OF EXAM: Jun 27 2024 7:05AM [id number] - XR CHEST 2V FRONTAL/LAT / PROCEDURE REASON: Other * * * * Physician Interpretation * * * * EXAMINATION: CHEST RADIOGRAPH (2 VIEW FRONTAL and LATERAL) CLINICAL HISTORY: Other, Trauma MQ: XC2_6 EXAM DATE/TIME: 06/27/2024 7:05 AM COMPARISON: 10/07/2012. RESULT: Lines, tubes, and devices: None. Lungs and pleura: There are new infiltrates/atelecta tic changes in the right lung base. A small right pleural effusion cannot be excluded. No consolidation. No lung mass. No pneumothorax. Cardiomediastinal silhouette: Stable cardiomediastinal silhouette. Bones and soft tissues: There is a healed fracture involving the left humeral neck and left clavicle. IMPRESSION: New right basilar parenchymal changes as described above. A follow-up exam is recommended. 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: PSCB Transcribe Date/Time: Jun 27 2024 4:05P Dictated by : DENYS RILEY MD This examination was interpreted and the report reviewed and electronically signed by: DENYS RILEY MD on Jun 27 2024 4:07PM EST [id number] CN Normal [facility] XR FOOT 3V AP/LAT/OBL LTon 0 06-27-2024 XR FOOT 3V AP/LAT/OBL LT * * *Final Report* * * DATE OF EXAM: Jun 27 2024 1:28PM [id number] - XR FOOT 3V AP/LAT/OBL LT / PROCEDURE REASON: Foot trauma, no prior imaging * * * * Physician Interpretation * * * * LEFT FOOT, PLANTAR DORSAL, OBLIQUE AND CROSSTABLE LATERAL: CLINICAL INDICATION: Left foot trauma, blunt. Ground-level fall. COMPARISON: Right foot radiographs 06/14/2014. The bones appear demineralized. No acute displaced fracture or dislocation. Mild calcaneal enthesopathy. Mild forefoot swelling. No metallic foreign body. IMPRESSION: No acute osseous abnormality. 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: CLINT Transcribe Date/Time: Jun 28 2024 7:40A Dictated by : VITO SALCIDO MD This examination was interpreted and the report reviewed and electronically signed by: VITO SALCIDO MD on Jun 28 2024 7:43AM EST [id number] CN Normal [facility] aPTT PPPon 06-27-2024 aPTT Coag (PPP) [Time] 25.9 s Normal 23.0-32.4 [facility] Comment on above: Order Comment: Speci men Type: BLOOD SPECIMENOrdering Facility: [facility] Address: [address] [place] [address] Performed By: #### 1 4979-9, 89263-3 ####[facility] LABORATORYCLIA [id number] [place] [address] [place] 12 Lead EKGon 06-26-2024 12 Lead EKG Normal [facility] Absolute lymphocyte countOrd ered By: Jaiden Fontaine on 06-26-2024 Lymphocytes Auto (Unsp spec) [#/Vol] 0.91 10*3/uL 0.83-4.51 [facility] Absolute neutrophil countOrd ered By: Jaiden Fontaine on 06-26-2024 Absolute neutrophil count 5.7 X10^3/uL 2.0-7.7 [facility] Automated lymphocyte count a s percentage of total leukocytesOrdered By: Jaiden Fontaine on 06-26-2024 Lymphocytes/100 WBC Auto (Unsp spec) 12.4 % Low 19-41 [facility] Basic Metabolic Profile (BMP )on 06-26-2024 BUN/CRE 20.1 RATIO High 10-20 [facility] Comment on above: Order Comment: 'TROP ' Serial specimen #1, #2 or #3: 1 Performed By: #### L 100.0100, L500.2500, L501.4020 ####[facility] [address] [place], [address] CA,Total 9.7 mg/dL Normal 8.5-10.1 [facility] Comment on above: Order Comment: 'TROP ' Serial specimen #1, #2 or #3: 1 Performed By: #### L 100.0100, L500.2500, L501.4020 ####[facility] [address] [place], [address] Chloride [Moles/Vol] 97 mmol/L Low 98-107 [facility] Comment on above: Order Comment: 'TROP ' Serial specimen #1, #2 or #3: 1 Performed By: #### L 100.0100, L500.2500, L501.4020 ####[facility] [address] [place], [address] CO2 [Moles/Vol] 33.0 mmol/L High 21.0-32.0 [facility] Comment on above: Order Comment: 'TROP ' Serial specimen #1, #2 or #3: 1 Performed By: #### L 100.0100, L500.2500, L501.4020 ####[facility] [address] [place], [address] Creatinine [Mass/Vol] 0.89 mg/dL Normal 0.55-1.02 [facility] Comment on above: Order Comment: 'TROP ' Serial specimen #1, #2 or #3: 1 Result Comment: The validity of the calculated GFR GFRAA in patients over70 years has not been determined. Clinical correlation isessential. Performed By: #### L 100.0100, L500.2500, L501.4020 ####[facility] [address] [place], [address] ECRCL 39.73 ml/min Normal [facility] Comment on above: Order Comment: 'TROP ' Serial specimen #1, #2 or #3: 1 Performed By: #### L 100.0100, L500.2500, L501.4020 ####[facility] [address] [place], [address] EST GFR - AA 77 mL/min Normal >60 [facility] Comment on above: Order Comment: 'TROP ' Serial specimen #1, #2 or #3: 1 Result Comment: Afri can Kyr[place]z GFR Calc Performed By: #### L 100.0100, L500.2500, L501.4020 ####[facility] [address] [place], [address] GAP 6 Normal 5-15 [facility] Comment on above: Order Comment: 'TROP ' Serial specimen #1, #2 or #3: 1 Performed By: #### L 100.0100, L500.2500, L501.4020 ####[facility] [address] [place], [address] GFR/1.73 sq M.predicted among non-blacks MDRD (S/P/Bld) [Vol rate/Area] 63 mL/min/{1.73_m2} Normal >60 [facility] Comment on above: Order Comment: 'TROP ' Serial specimen #1, #2 or #3: 1 Result Comment: Non- GFR Calc Performed By: #### L 100.0100, L500.2500, L501.4020 ####[facility] [address] [place], [address] Glucose [Mass/Vol] 114 mg/dL High 74-[address] [facility] Comment on above: Order Comment: 'TROP ' Serial specimen #1, #2 or #3: 1 Result Comment: Fast ing Glucose result from 100 to 125 mg/dLsuggests IMPAIRED HOMEOSTASIS per A.D.A. criteria. Performed By: #### L 100.0100, L500.2500, L501.4020 ####[facility] [address] [place], [address] Potassium [Moles/Vol] 3.8 mmol/L Normal 3.5-5.1 [facility] Comment on above: Order Comment: 'TROP ' Serial specimen #1, #2 or #3: 1 Performed By: #### L 100.0100, L500.2500, L501.4020 ####[facility] [address] [place], [address] Sodium [Moles/Vol] 136 mmol/L Normal 136-[address] [facility] Comment on above: Order Comment: 'TROP ' Serial specimen #1, #2 or #3: 1 Performed By: #### L 100.0100, L500.2500, L501.4020 ####[facility] [address] [place], [address] Urea nitrogen [Mass/Vol] 18 mg/dL Normal 7-18 [facility] Comment on above: Order Comment: 'TROP ' Serial specimen #1, #2 or #3: 1 Performed By: #### L 100.0100, L500.2500, L501.4020 ####[facility] [address] [place], [address] Basophil percentageOrdered B y: Jaiden Fontaine on 06-26-2024 Basophils/100 WBC (Bld) 0.7 % 0-1 [facility] Bilirubin Test strip Ql (U)O rdered By: Jaiden Fontaine on 06-26-2024 Bilirubin Ql (U) Negative Negative [facility] Blood urea nitrogen (BUN)/cr eatinine ratioOrdered By: Jaiden Fontaine on 06-26-2024 Blood urea nitrogen (BUN)/creatinine ratio 20.1 RATIO High 10-20 [facility] Brain/Head without Contrasto n 06-26-2024 Brain/Head without Contrast Normal [facility] CBC W/Diff, Automatedon 02- Absolute Lymph 0.91 X10 3/uL Normal 0.83-4.51 [facility] Comment on above: Performed By: #### L 100.0100, L500.2500, L501.4020 ####[facility] [address] [place], [address] Absolute Neut 5.7 X10 3/uL Normal 2.0-7.7 [facility] Comment on above: Performed By: #### L 100.0100, L500.2500, L501.4020 ####[facility] [address] [place], [address] Basophils/100 WBC (Bld) 0.7 % Normal 0-1 [facility] Comment on above: Performed By: #### L 100.0100, L500.2500, L501.4020 ####[facility] [address] [place], [address] Eosinophils/100 WBC (Bld) 0.7 % Normal 0-5 [facility] Comment on above: Performed By: #### L 100.0100, L500.2500, L501.4020 ####[facility] [address] [place], [address] Erythrocyte distribution width (RBC) [Ratio] 15.2 % High 11.6-14.6 [facility] Comment on above: Performed By: #### L 100.0100, L500.2500, L501.4020 ####[facility] [address] [place], [address] Hematocrit (Bld) [Volume fraction] 33.6 % Low 37-47 [facility] Comment on above: Performed By: #### L 100.0100, L500.2500, L501.4020 ####[facility] [address] [place], [address] Hemoglobin (Bld) [Mass/Vol] 10.6 g/dL Low 12.0-15.0 [facility] Comment on above: Performed By: #### L 100.0100, L500.2500, L501.4020 ####[facility] [address] [place], [address] IG% 1.000 High 0.0-0.9 [facility] Comment on above: Result Comment: IG% - Immature Granulocytes (promyelocytes, myelocytes andmetamyelocytes) > 1% indicates that a LEFT SHIFT is Present. Performed By: #### L 100.0100, L500.2500, L501.4020 ####[facility] [address] [place], [address] Lymphocytes/100 WBC (Bld) 12.4 % Low 19-41 [facility] Comment on above: Performed By: #### L 100.0100, L500.2500, L501.4020 ####[facility] [address] [place], [address] MCH (RBC) [Entitic mass] 29.9 pg Normal 27.0-32.0 [facility] Comment on above: Performed By: #### L 100.0100, L500.2500, L501.4020 ####[facility] [address] [place], [address] MCHC (RBC) [Mass/Vol] 31.5 g/dL Low 32-36 [facility] Comment on above: Performed By: #### L 100.0100, L500.2500, L501.4020 ####[facility] [address] [place], [address] MCV (RBC) [Entitic vol] 94.9 fL Normal 81-99 [facility] Comment on above: Performed By: #### L 100.0100, L500.2500, L501.4020 ####[facility] [address] [place], [address] Monocytes/100 WBC (Bld) 7.7 % Normal 0-10 [facility] Comment on above: Performed By: #### L 100.0100, L500.2500, L501.4020 ####[facility] [address] [place], [address] Neutrophils/100 WBC (Bld) 77.5 % High 47-70 [facility] Comment on above: Performed By: #### L 100.0100, L500.2500, L501.4020 ####[facility] [address] [place], [address] Nucleated RBC (Bld) [#/Vol] 0 10*3/uL Normal 0-5 [facility] Comment on above: Performed By: #### L 100.0100, L500.2500, L501.4020 ####[facility] [address] [place], [address] Platelet mean volume (Bld) [Entitic vol] 9.2 fL Normal 6.2-12.0 [facility] Comment on above: Performed By: #### L 100.0100, L500.2500, L501.4020 ####[facility] [address] [place], [address] Platelets (Bld) [#/Vol] 289 10*3/uL Normal 150-450 [facility] Comment on above: Performed By: #### L 100.0100, L500.2500, L501.4020 ####[facility] [address] [place], [address] RBC (Bld) [#/Vol] 3.54 10*6/uL Low 4.2-5.4 [facility] Comment on above: Performed By: #### L 100.0100, L500.2500, L501.4020 ####[facility] [address] [place], [address] RDW SD 53.1 fl High 35.1-43.9 [facility] Comment on above: Performed By: #### L 100.0100, L500.2500, L501.4020 ####[facility] [address] [place], [address] WBC (Bld) [#/Vol] 7.3 10*3/uL Normal 4.4-11.[address] [facility] Comment on above: Performed By: #### L 100.0100, L500.2500, L501.4020 ####[facility] [address] [place], [address] Calcium [Mass/Vol]Ordered By : Jaiden Fontaine on 06-26-2024 Serum or plasma calcium measurement (mass/volume) 9.7 mg/dL 8.5-10.1 [facility] Carbon dioxide measurementOr dered By: Jaiden Fontaine on 06-26-2024 CO2 [Moles/Vol] 33.0 mmol/L High 21.0-32.0 [facility] Carbon dioxide measurement 33.0 mmol/L High 21.0-32.0 [facility] Chest without Contraston Chest without Contrast Normal [facility] Chloride measurementOrdered By: Jaiden Fontaine on 06-26-2024 Chloride [Moles/Vol] 97 mmol/L Low 98-107 [facility] Chloride measurement 97 mmol/L Low 98-107 [facility] Clarity (U)Ordered By: Jaiden Fontaine on 06-26-2024 Urine clarity Clear Clear [facility] Color (U)Ordered By: Jaiden de jesus on 06-26-2024 Urine color determination Yellow Yellow [facility] Creatinine [Mass/Vol]Ordered By: Jaiden Fontaine on 06-26-2024 Serum or plasma creatinine measurement (mass/volume) 0.89 mg/dL 0.55-1.02 [facility] ED NOTEon 06-26-2024 ED NOTE HNO ID: [id number] Author: MARTHA KYLE, RN Service: Nursing Author Type: Registered Nurse Type: ED Notes Filed: 06/26/2024 20:33 Note Text: Pt asking and concerned about getting her night time medications Normal [facility] ED NOTE HNO ID: [id number] Author: MARTHA KYLE, RN Service: Nursing Author Type: Registered Nurse Type: ED Notes Filed: 06/26/2024 20:32 Note Text: Pt placed on ekg monitor tech, bp cuff and pulse ox attached. Pt is aANDox3. YAVAPAI-APACHE. R foot is wrapped with a walking shoe Normal [facility] ED NOTE HNO ID: [id number] Author: ZENOBIA VALDEZ RN Service: ? Author Type: Registered Nurse Type: ED Notes Filed: 06/26/2024 20:27 Note Text: Bed: 36-ED Expected date: Expected time: Means of arrival: Comments: TRANSFER Normal [facility] ED PROV NOTEon 06-26-2024 ED PROV NOTE HNO ID: [id number] Author: TAM SERVIN MD Service: Emergency Medicine Author Type: Physician Type: ED Provider Notes Filed: 06/27/2024 00:18 Note Text: ED CONTINUATION OF CARE NOTE Code Status: Prior Assumed care from: transfer from [place] for trauma consultation Presentation / Findings / Interventions / Plan / Items to Follow Up: 89 y/o F with hx of SAH, HTN, paroxsymal afib, restless leg syndrome, ENL on CPAP HS, mechanical fall on ASA presents as trauma consult transfer from [place] ED; had mechanical fall in AM falling onto left side. CT head showed stable findings without evidence of acute injury. CT cervical spine unremarkable. Non displaced 1st, 3-8th rib fx noted. L1-L2 TP fractures noted. No retropulsion. Patient says had L2-3 previous vertebral fx about a year ago resulting in right LE weakness. Right foot has mildy comminuted and angulated fx of mid fifth metatarsal. Denies any new weakness in arms/legs. Denies any bowel or bladder incontinence. Denies SOB, hemoptysis, TORO. Reports pain in left side about 7/10. Exam shows relatively comfortable elderly woman lying in bed; non ill / toxic but frail appearing. In no acute distress. Normal respiratory effort. Normal HR. BP wnl. On 2L of HiFlo for bedtime cpap replacement? Skin exam showed some bruising of left foot dorsum; right foot in vikash wrap with post op shoe. Bruising over left lateral thigh. No bruising over chest/abdomen. No deformities/flail chest noted. Clear auscultation of lungs. No coughing, wheezing noted. Speaking in full sentences. Neuro examination showed weakness of right hip flexion compared to left. Dorsiflexion/ankle flexion and sensation intact bilaterally. Bilateral non pitting edema noted and symmetric. Head normocephalic/atraum atic; no rhinorrhea, periorbital ecchymosis, erazo signs, facial droop noted. No TTP over back/spine noted. Signed out to Dr. Hernandez pending trauma recs. Patient in stable condition pending trauma eval. Hood Concepcion M.D. Emergency Medicine Resident, PGY-3 [facility] This note was created using Klick[employer] dictation software. Every attempt was made to proofread, however you may find errors regardless of how insignificant they may be. They are purely unintentional and if there are any concerns regarding this dictation, please do not hesitate to call the dictating provider for clarification. ED Course as of 06/27/24 001 Others' Documentation Sat Jun 26, [id number] Signout from Dr. Concepcion. 89-year-old female transfer from [place] for trauma. Found to have left 3-8 rib fractures. Right lower extremity weakness baseline. Likely trauma admission. [MM] ED Course User Index [MM] Getrrudis Hernandez MD Clinical Impressions as of 06/27/24 0013 Closed fracture of multiple ribs of left side, initial encounter Closed fracture of transverse process of lumbar vertebra, initial encounter (HCC) - L1-L2 SIGNATURE: Hood Concepcion MD PATIENT NAME: Joyce Solomon DATE: June 26, 2024 TIME: 9:22 PM PAGER/CONTACT #: HOOD CONCEPCION 06/26/24 1439 Attending Note I personally saw the patient and performed a substantial portion of the visit including all the aspects of the medical decision making. I agree with the resident's findings and plan as documented and have discussed the case and management of the patient's care with the resident. I was personally present and supervised draper portions of all procedures. History of present illness: The patient is a 89 year old female with recent intracranial hemorrhage, who presents to the ED for a trauma consultation after she was found to have multiple rib fractures, lumbar transverse process fractures, and fifth metatarsal fracture secondary to a mechanical fall. She reports 7 out of 10 left chest wall pain. Past medical history: Reviewed Past surgical history: Noncontributory Family history: Noncontributory 14 point review of systems negative unless mentioned above Physical exam: Gen.: Patient appears nontoxic, saturating well on 2 L via nasal cannula Head: Normocephalic, atraumatic Respiratory: Equal clear breath sounds appreciated bilaterally Cardiovascular: Regular rate and rhythm Abdomen: Soft, no distention, non-tender abdomen Musculoskeletal: Left chest wall pain to palpation Medical decision making: The patient presents to the ED f as a trauma transfer. Vital signs reviewed. Physical exam as above. Patient was provided with analgesia in the ED and trauma consultation was immediately placed. Patient will require admission. Please refer to the resident's note for additional management. TAM SERVIN 06/27/24 0018 Normal [facility] Emergency Department Summary on 06-26-2024 Emergency Department Summary Normal [facility] Eosinophil percentageOrdered By: Jaiden Fontaine on 06-26-2024 Eosinophils/100 WBC (Bld) 0.7 % 0-5 [facility] Eosinophil percentage 0.7 % 0-1 [facility] Epithelial cells.squamous LM Ql (Urine sed)Ordered By: Jaiden Fontaine on 06-26-2024 Squamous epithelial cells detection in urine sediment by light microscopy 0-5 SEEN /hpf 5-10 [facility] Erythrocyte distribution wid th (RBC) [Ratio]Ordered By: Jaiden Fontaine on 06-26-2024 Erythrocyte distribution width ratio 15.2 % High 11.6-14.6 [facility] Erythrocyte distribution wid th ratioOrdered By: Jaiden Fontaine on 06-26-2024 Erythrocyte distribution width (RBC) [Ratio] 15.2 % High 11.6-14.6 [facility] Erythrocyte distribution wid th standard deviationOrdered By: Jaiden Fontaine on 06-26-2024 Erythrocyte distribution width (RBC) [Ratio] 53.1 fl High 35.1-43.9 [facility] Erythrocyte distribution width standard deviation 53.1 fl High 35.1-43.9 [facility] Estimated glomerular filtrat ion rate (GFR) AmericanOrdered By: Jaiden Fontaine on 06-26-2024 Estimated glomerular filtration rate (GFR) 77 mL/min >60 [facility] Estimation of creatinine mary ellen aranceOrdered By: Jaiden Fontaine on 06-26-2024 Estimation of creatinine clearance 39.73 ml/min [facility] Foot min 3 Viewson 5 Foot min 3 Views Normal [facility] Foot min 3 Views Normal [facility] Glomerular filtration rate ( GFR) estimationOrdered By: Jaiden Fontaine on 06-26-2024 GFR/1.73 sq M.predicted among non-blacks MDRD (S/P/Bld) [Vol rate/Area] 63 mL/min/{1.73_m2} >60 [facility] Glomerular filtration rate (GFR) estimation 63 mL/min >60 [facility] Glucose measurementOrdered B y: Jaiden Fontaine on 06-26-2024 Glucose [Mass/Vol] 114 mg/dL High 74-[address] [facility] Glucose measurement 114 mg/dL High 74-106 [facility] Hematocrit Auto (Bld) [Volum e fraction]Ordered By: Jaiden Fontaine on 06-26-2024 Hematocrit (Bld) [Volume fraction] 33.6 % Low 37-47 [facility] Automated blood hematocrit (percentage) 33.6 % Low 37-47 [facility] Hemoglobin measurementOrdere d By: Jaiden Fontaine on 06-26-2024 Hemoglobin (Bld) [Mass/Vol] 10.6 g/dL Low 12.0-15.0 [facility] Hemoglobin measurement 10.6 g/dL Low 12.0-15.0 [facility] Immature granulocytes/100 WB C Auto (Bld)Ordered By: Jaiden Fontaine on 06-26-2024 Immature granulocytes/100 WBC (Bld) 1.000 % High 0.0-0.9 [facility] Automated immature granulocyte percentage 1.000 % High 0.0-0.9 [facility] Ketones Test strip Ql (U)Ord ered By: Jaiden Fontaine on 06-26-2024 Ketones Ql (U) Negative Negative [facility] L501.4020on 06-26-2024 TROPONIN-I HS 19 pg/mL Normal 3.0-54.0 [facility] Comment on above: Order Comment: 'TROP ' Serial specimen #1, #2 or #3: 1 Result Comment: Newton valdovinos Note: New Test Units and Gender Specific Reference Ranges. For more information see Policy Stat Procedure [place] High Sensitivity Troponin (TNIH) and attachments. Performed By: #### L 100.0100, L500.2500, L501.4020 ####[facility] [address] [place], [address] Lymphocytes Auto (Unsp spec) [#/Vol]Ordered By: Jaiden Fontaine on 06-26-2024 Absolute lymphocyte count 0.91 X10^3/uL 0.83-4.51 [facility] Lymphocytes/100 WBC Auto (Un sp spec)Ordered By: Jaiden Fontaine on 06-26-2024 Automated lymphocyte count as percentage of total leukocytes 12.4 % Low 19-41 [facility] MCV (RBC) [Entitic vol]Order ed By: Jaiden Fontaine on 06-26-2024 MCV (mean corpuscular volume) determination 94.9 fL 81-99 [facility] MCV (mean corpuscular volume ) determinationOrdered By: Jaiden Fontaine on 06-26-2024 MCV (RBC) [Entitic vol] 94.9 fL 81-99 [facility] Mean corpuscular hemoglobin (MCH) determinationOrdered By: Jaiden Fontaine on 06-26-2024 MCH (RBC) [Entitic mass] 29.9 pg 27.0-32.0 [facility] Mean corpuscular hemoglobin (MCH) determination 29.9 pg 27.0-32.0 [facility] Mean corpuscular hemoglobin concentration (MCHC) determinationOrdered By: Jaiden Fontaine on 06-26-2024 Mean corpuscular hemoglobin concentration (MCHC) determination 31.5 g/dL Low 32-36 [facility] Mean platelet volume determi nationOrdered By: Jaiden Fontaine on 06-26-2024 Mean platelet volume determination 9.2 fl 6.2-12.0 [facility] Monocyte percentageOrdered B y: Jaiden Fontaine on 06-26-2024 Monocytes/100 WBC (Bld) 7.7 % 0-10 [facility] Monocyte percentage 7.7 % 0-10 [facility] Mucus LM Ql (Urine sed)Order ed By: Jaiden Fontaine on 06-26-2024 Mucus Ql (Urine sed) 0 SEEN /hpf [facility] Neutrophil percentageOrdered By: Jaiden Fontaine on 06-26-2024 Neutrophils/100 WBC (Bld) 77.5 % High 47-70 [facility] Neutrophil percentage 77.5 % High 47-70 [facility] Nitrite Test strip Ql (U)Ord ered By: Jaiden Fontaine on 06-26-2024 Nitrite Ql (U) Negative Negative [facility] Nucleated red blood cell per centageOrdered By: Jaiden Fontaine on 06-26-2024 Nucleated red blood cell percentage 0 % 0-5 [facility] Pelvis 1 or 2 Viewson 2024 Pelvis 1 or 2 Views Normal [facility] Platelet countOrdered By: Rm Fontaine on 06-26-2024 Platelets (Bld) [#/Vol] 289 10*3/uL 150-450 [facility] Platelet count 289 K/mm3 150-450 [facility] Potassium measurementOrdered By: Jaiden Fontaine on 06-26-2024 Potassium [Moles/Vol] 3.8 mmol/L 3.5-5.1 [facility] Potassium measurement 3.8 mmol/L 3.5-5.1 [facility] Protein Test strip Ql (U)Ord ered By: Jaiden Fontaine on 06-26-2024 Protein Ql (U) 15 mg/dl High Negative [facility] Urine protein assay by test strip, semi-quantitative 15 mg/dl High Negative [facility] RBC Auto (Bld) [#/Vol]Ordere d By: Jaiden Fontaine on 06-26-2024 RBC (Bld) [#/Vol] 3.54 10*6/uL Low 4.2-5.4 [facility] Automated blood erythrocyte count 3.54 M/mm3 Low 4.2-5.4 [facility] Serum anion gap measurementO rdered By: Jaiden Fontaine on 06-26-2024 Serum anion gap measurement 6 -15 [facility] Serum or plasma calcium manuel urement (mass/volume)Ordered By: Jaiden Fontaine on 06-26-2024 Calcium [Mass/Vol] 9.7 mg/dL 8.5-10.[address] [facility] Serum or plasma creatinine m easurement (mass/volume)Ordered By: Jaiden Fontaine on 06-26-2024 Creatinine [Mass/Vol] 0.89 mg/dL 0.55-1.02 [facility] Serum or plasma urea nitroge n measurement (mass/volume)Ordered By: Jaiden Fontaine on 06-26-2024 Urea nitrogen [Mass/Vol] 18 mg/dL 7- [facility] Shoulder min 2 Viewson 06-26 Shoulder min 2 Views Normal [facility] Sodium levelOrdered By: Jaiden Fontaine on 06-26-2024 Sodium [Moles/Vol] 136 mmol/L 136-[address] [facility] Sodium level 136 mmol/L 136-145 [facility] Specific gravity (U) [Rel de nsity]Ordered By: Jaiden Fontaine on 06-26-2024 Urine specific gravity measurement 1.010 1.002-1.030 [facility] Spine Cervical without Contr ason 06-26-2024 Spine Cervical without Contras Normal [facility] Squamous epithelial cells de tection in urine sediment by light microscopyOrdered By: Jaiden Fontaine on 06-26-2024 Epithelial cells.squamous LM Ql (Urine sed) 0-5 SEEN /hpf 5-10 [facility] Troponin IOrdered By: Jaiden kaye on 06-26-2024 Troponin I 19 pg/mL 3.0-54.0 [facility] Troponin I 19 pg/mL 3.0-54.0 [facility] Urea nitrogen [Mass/Vol]Orde red By: Jaiden Fontaine on 06-26-2024 Serum or plasma urea nitrogen measurement (mass/volume) 18 mg/dL -18 [facility] Urinalysis, Completeon 06-26 RBC 0 SEEN Normal 0-5 [facility] Comment on above: Order Comment: CLEAN CATCH Performed By: #### L 400.0001 ####[facility] [address] [place], [address] Urine clarityOrdered By: Lurdes Fontaine on 06-26-2024 Clarity (U) Clear Clear [facility] Urine color determinationOrd ered By: Jaiden Fontaine on 06-26-2024 Color (U) Yellow Yellow [facility] Urine glucose detectionOrder ed By: Jaiden Fontaine on 06-26-2024 Glucose Ql (U) Normal mg/dl Normal [facility] Urine glucose detection Normal mg/dl Normal [facility] Urine leukocyte esterase det ection by dipstickOrdered By: Jaiden Fontaine on 06-26-2024 Leukocyte esterase Test strip Ql (U) Negative Negative [facility] Urine pHOrdered By: Jaiden adame on 06-26-2024 pH (U) 6.5 [pH] 5.0 - 8.0 [facility] Urine sediment bacteria coun t by microscopy (number/high power field)Ordered By: Jaiden Fontaine on 06-26-2024 Bacteria LM.HPF (Urine sed) [#/Area] 0 /[HPF] None Seen [facility] Urine specific gravity measu rementOrdered By: Jaiden Fontaine on 06-26-2024 Specific gravity (U) [Rel density] 1.010 1.002-1.030 [facility] Urine total bilirubin detect ion by test stripOrdered By: Jaiden Fontaine on 06-26-2024 Urine total bilirubin detection by test strip Negative Negative [facility] Urine urobilinogen measureme ntOrdered By: Jaiden Fontaine on 06-26-2024 Urobilinogen Ql (U) Normal mg/dl Normal [facility] White blood cell (WBC) count Ordered By: Jaiden Fontaine on 06-26-2024 WBC (Bld) [#/Vol] 7.3 10*3/uL 4.4-11.[address] [facility] White blood cell (WBC) count 7.3 K/mm3 4.4-11.0 [facility] White blood cell countOrdere d By: Jaiden Fontaine on 06-26-2024 White blood cell count 0 SEEN /hpf 0-5 [facility] White blood cell count 0 SEEN /hpf [facility] pH (U)Ordered By: Jaiden do on 06-26-2024 Urine pH 6.5 5.0 - 8.0 [facility] Basic Metabolic Profile (BMP )on 06-21-2024 BUN/CRE 29.8 RATIO High 10-20 [facility] Comment on above: Order Comment: Order Date: 06/21/24Order Info: 666-05 - BMPOrder Info: 2497-08 FEOrder Info: 2275-08 - OSCAR Performed By: #### L 100.0500, L100.9950, L500.2500, L503.6150, L503.6550 ####[facility] [address] [place], [address] CA,Total 9.6 mg/dL Normal 8.5-10.1 [facility] Comment on above: Order Comment: Order Date: 06/21/24Order Info: 666-05 - BMPOrder Info: 2497-08 - FEOrder Info: 2275-08 - OSCAR Performed By: #### L 100.0500, L100.9950, L500.2500, L503.6150, L503.6550 ####[facility] [address] [place], [address] Chloride [Moles/Vol] 100 mmol/L Normal 98-107 [facility] Comment on above: Order Comment: Order Date: 06/21/24Order Info: 666-05 - BMPOrder Info: 2497-08 FEOrder Info: 2275-08 - OSCAR Performed By: #### L 100.0500, L100.9950, L500.2500, L503.6150, L503.6550 ####[facility] [address] [place], [address] CO2 [Moles/Vol] 30.0 mmol/L Normal 21.0-32.0 [facility] Comment on above: Order Comment: Order Date: 06/21/24Order Info: 666-05 - BMPOrder Info: 2497-08 FEOrder Info: 2275-08 - OSCAR Performed By: #### L 100.0500, L100.9950, L500.2500, L503.6150, L503.6550 ####[facility] [address] [place], [address] Creatinine [Mass/Vol] 1.04 mg/dL High 0.55-1.02 [facility] Comment on above: Order Comment: Order Date: 06/21/24Order Info: 0667- - BMPOrder Info: 2497-08 - FEOrder Info: 2275-08 - OSCAR Result Comment: The validity of the calculated GFR GFRAA in patients over70 years has not been determined. Clinical correlation isessential. Performed By: #### L 100.0500, L100.9950, L500.2500, L503.6150, L503.6550 ####[facility] [address] [place], [address] EST GFR - AA 64 mL/min Normal >60 [facility] Comment on above: Order Comment: Order Date: 06/21/24Order Info: 0667- - BMPOrder Info: 2497-08 - FEOrder Info: 2275-08 - OSCAR Result Comment: Afri can Kyr[place]z GFR Calc Performed By: #### L 100.0500, L100.9950, L500.2500, L503.6150, L503.6550 ####[facility] [address] [place], [address] GAP 8 Normal 5-15 [facility] Comment on above: Order Comment: Order Date: 06/21/24Order Info: 0667-1 - BMPOrder Info: 2497-08 - FEOrder Info: 2275-08 - OSCAR Performed By: #### L 100.0500, L100.9950, L500.2500, L503.6150, L503.6550 ####[facility] [address] [place], [address] GFR/1.73 sq M.predicted among non-blacks MDRD (S/P/Bld) [Vol rate/Area] 53 mL/min/{1.73_m2} Low >60 [facility] Comment on above: Order Comment: Order Date: 06/21/24Order Info: 666-05 - BMPOrder Info: 2497-08 - FEOrder Info: 2275-08 - OSCAR Result Comment: Non- GFR Calc Performed By: #### L 100.0500, L100.9950, L500.2500, L503.6150, L503.6550 ####[facility] [address] [place], [address] Glucose [Mass/Vol] 96 mg/dL Normal 74-[address] [facility] Comment on above: Order Comment: Order Date: 06/21/24Order Info: 666-05 - BMPOrder Info: 2497-08 - FEOrder Info: 2275-08 - OSCAR Performed By: #### L 100.0500, L100.9950, L500.2500, L503.6150, L503.6550 ####[facility] [address] [place], [address] Potassium [Moles/Vol] 4.5 mmol/L Normal 3.5-5.1 [facility] Comment on above: Order Comment: Order Date: 06/21/24Order Info: 666-05 - BMPOrder Info: 2497-08 FEOrder Info: 2275-08 - OSCAR Performed By: #### L 100.0500, L100.9950, L500.2500, L503.6150, L503.6550 ####[facility] [address] [place], [address] Sodium [Moles/Vol] 138 mmol/L Normal 136-[address] [facility] Comment on above: Order Comment: Order Date: 06/21/24Order Info: 666-05 - BMPOrder Info: 2497-08 FEOrder Info: 2275-08 - OSCAR Performed By: #### L 100.0500, L100.9950, L500.2500, L503.6150, L503.6550 ####[facility] [address] [place], [address] Urea nitrogen [Mass/Vol] 31 mg/dL High 7-18 [facility] Comment on above: Order Comment: Order Date: 06/21/24Order Info: 0667-1 - BMPOrder Info: 2498-4 - FEOrder Info: 2276-4 - OSCAR Performed By: #### L 100.0500, L100.9950, L500.2500, L503.6150, L503.6550 ####[facility] [address] [place], [address] BUN Normal 7-18 [facility] Comment on above: Result Comment: Canc elled via OM: Order cancelled - Patient discharged Performed By: #### L 500.2500, L100.0100 ####[facility] [address] [place], [address] BUN/CRE Normal 10-20 [facility] Comment on above: Result Comment: Canc elled via OM: Order cancelled - Patient discharged Performed By: #### L 500.2500, L100.0100 ####[facility] [address] [place], [address] CA,Total Normal 8.5-10.1 [facility] Comment on above: Result Comment: Canc elled via OM: Order cancelled - Patient discharged Performed By: #### L 500.2500, L100.0100 ####[facility] [address] [place], [address] CL Normal 98-107 [facility] Comment on above: Result Comment: Canc elled via OM: Order cancelled - Patient discharged Performed By: #### L 500.2500, L100.0100 ####[facility] [address] [place], [address] CO2 Normal 21.0-32.0 [facility] Comment on above: Result Comment: Canc elled via OM: Order cancelled - Patient discharged Performed By: #### L 500.2500, L100.0100 ####[facility] [address] [place], [address] CREAT,SERUM Normal 0.55-1.02 [facility] Comment on above: Result Comment: Canc elled via OM: Order cancelled - Patient discharged Performed By: #### L 500.2500, L100.0100 ####[facility] [address] [place], [address] EST GFR Normal >60 [facility] Comment on above: Result Comment: Canc elled via OM: Order cancelled - Patient discharged Performed By: #### L 500.2500, L100.0100 ####[facility] [address] [place], [address] EST GFR - AA Normal >60 [facility] Comment on above: Result Comment: Canc elled via OM: Order cancelled - Patient discharged Performed By: #### L 500.2500, L100.0100 ####[facility] [address] [place], [address] GAP Normal 5-15 [facility] Comment on above: Result Comment: Canc elled via OM: Order cancelled - Patient discharged Performed By: #### L 500.2500, L100.0100 ####[facility] [address] [place], [address] GLU Normal 74-106 [facility] Comment on above: Result Comment: Canc elled via OM: Order cancelled - Patient discharged Performed By: #### L 500.2500, L100.0100 ####[facility] [address] [place], [address] Potassium Normal 3.5-5.1 [facility] Comment on above: Result Comment: Canc elled via OM: Order cancelled - Patient discharged Performed By: #### L 500.2500, L100.0100 ####[facility] [address] [place], [address] Basic Metabolic Profile (BMP) Normal 136-145 [facility] Comment on above: Result Comment: Canc elled via OM: Order cancelled - Patient discharged Performed By: #### L 500.2500, L100.0100 ####[facility] [address] [place], [address] Blood urea nitrogen (BUN)/cr eatinine ratioOrdered By: Bridget Swenson on 06-21-2024 Blood urea nitrogen (BUN)/creatinine ratio 29.8 RATIO High 10-20 [facility] CBC W/Diff, Automatedon 06-12 Absolute Neut Normal 2.0-7.7 [facility] Comment on above: Result Comment: Canc elled via OM: Order cancelled - Patient discharged Performed By: #### L 500.2500, L100.0100 ####[facility] [address] [place], [address] HCT Normal 37-47 [facility] Comment on above: Result Comment: Canc elled via OM: Order cancelled - Patient discharged Performed By: #### L 500.2500, L100.0100 ####[facility] [address] [place], [address] HGB Normal 12.0-15.0 [facility] Comment on above: Result Comment: Canc elled via OM: Order cancelled - Patient discharged Performed By: #### L 500.2500, L100.0100 ####[facility] [address] [place], [address] MCH Normal 27.0-32.0 [facility] Comment on above: Result Comment: Canc elled via OM: Order cancelled - Patient discharged Performed By: #### L 500.2500, L100.0100 ####[facility] [address] [place], [address] MCHC Normal 32-36 [facility] Comment on above: Result Comment: Canc elled via OM: Order cancelled - Patient discharged Performed By: #### L 500.2500, L100.0100 ####[facility] [address] [place], [address] MCV Normal 81-99 [facility] Comment on above: Result Comment: Canc elled via OM: Order cancelled - Patient discharged Performed By: #### L 500.2500, L100.0100 ####[facility] [address] [place], [address] NEUT% Normal 47-70 [facility] Comment on above: Result Comment: Canc elled via OM: Order cancelled - Patient discharged Performed By: #### L 500.2500, L100.0100 ####[facility] [address] [place], [address] PLT Normal 150-450 [facility] Comment on above: Result Comment: Canc elled via OM: Order cancelled - Patient discharged Performed By: #### L 500.2500, L100.0100 ####[facility] [address] [place], [address] RBC Normal 4.2-5.4 [facility] Comment on above: Result Comment: Canc elled via OM: Order cancelled - Patient discharged Performed By: #### L 500.2500, L100.0100 ####[facility] [address] [place], [address] RDW CV Normal 11.6-14.6 [facility] Comment on above: Result Comment: Canc elled via OM: Order cancelled - Patient discharged Performed By: #### L 500.2500, L100.0100 ####[facility] [address] [place], [address] RDW SD Normal 35.1-43.9 [facility] Comment on above: Result Comment: Canc elled via OM: Order cancelled - Patient discharged Performed By: #### L 500.2500, L100.0100 ####[facility] [address] [place], [address] WBC Normal 4.4-11.0 [facility] Comment on above: Result Comment: Canc elled via OM: Order cancelled - Patient discharged Performed By: #### L 500.2500, L100.0100 ####[facility] [address] [place], [address] CBC-Complete Blood Cnt No Di ffon 06-21-2024 Erythrocyte distribution width (RBC) [Ratio] 15.7 % High 11.6-14.6 [facility] Comment on above: Order Comment: Order Date: 06/21/24Order Info: [id number] - CBCOrder Info: [id number] - RETIC Performed By: #### L 100.0500, L100.9950, L500.2500, L503.6150, L503.6550 ####[facility] [address] [place], [address] Hematocrit (Bld) [Volume fraction] 31.8 % Low 37-47 [facility] Comment on above: Order Comment: Order Date: 06/21/24Order Info: [id number] - CBCOrder Info: [id number] - RETIC Performed By: #### L 100.0500, L100.9950, L500.2500, L503.6150, L503.6550 ####[facility] [address] [place], [address] Hemoglobin (Bld) [Mass/Vol] 10.0 g/dL Low 12.0-15.0 [facility] Comment on above: Order Comment: Order Date: 06/21/24Order Info: [id number] - CBCOrder Info: [id number] - RETIC Performed By: #### L 100.0500, L100.9950, L500.2500, L503.6150, L503.6550 ####[facility] [address] [place], [address] MCH (RBC) [Entitic mass] 29.9 pg Normal 27.0-32.0 [facility] Comment on above: Order Comment: Order Date: 06/21/24Order Info: [id number] - CBCOrder Info: [id number] - RETIC Performed By: #### L 100.0500, L100.9950, L500.2500, L503.6150, L503.6550 ####[facility] [address] [place], [address] MCHC (RBC) [Mass/Vol] 31.4 g/dL Low 32-36 [facility] Comment on above: Order Comment: Order Date: 06/21/24Order Info: [id number] - CBCOrder Info: [id number] - RETIC Performed By: #### L 100.0500, L100.9950, L500.2500, L503.6150, L503.6550 ####[facility] [address] [place], [address] MCV (RBC) [Entitic vol] 94.9 fL Normal 81-99 [facility] Comment on above: Order Comment: Order Date: 06/21/24Order Info: [id number] - CBCOrder Info: [id number] - RETIC Performed By: #### L 100.0500, L100.9950, L500.2500, L503.6150, L503.6550 ####[facility] [address] [place], [address] Platelet mean volume (Bld) [Entitic vol] 9.6 fL Normal 6.2-12.0 [facility] Comment on above: Order Comment: Order Date: 06/21/24Order Info: [id number] - CBCOrder Info: [id number] - RETIC Performed By: #### L 100.0500, L100.9950, L500.2500, L503.6150, L503.6550 ####[facility] [address] [place], [address] Platelets (Bld) [#/Vol] 328 10*3/uL Normal 150-450 [facility] Comment on above: Order Comment: Order Date: 06/21/24Order Info: [id number] - CBCOrder Info: [id number] - RETIC Performed By: #### L 100.0500, L100.9950, L500.2500, L503.6150, L503.6550 ####[facility] [address] [place], [address] RBC (Bld) [#/Vol] 3.35 10*6/uL Low 4.2-5.4 [facility] Comment on above: Order Comment: Order Date: 06/21/24Order Info: [id number] - CBCOrder Info: [id number] - RETIC Performed By: #### L 100.0500, L100.9950, L500.2500, L503.6150, L503.6550 ####[facility] [address] [place], [address] RDW SD 54.6 fl High 35.1-43.9 [facility] Comment on above: Order Comment: Order Date: 06/21/24Order Info: [id number] - CBCOrder Info: [id number] - RETIC Performed By: #### L 100.0500, L100.9950, L500.2500, L503.6150, L503.6550 ####[facility] [address] [place], [address] WBC (Bld) [#/Vol] 6.1 10*3/uL Normal 4.4-11.[address] [facility] Comment on above: Order Comment: Order Date: 06/21/24Order Info: [id number] - CBCOrder Info: [id number] - RETIC Performed By: #### L 100.0500, L100.9950, L500.2500, L503.6150, L503.6550 ####[facility] [address] [place], [address] Calcium [Mass/Vol]Ordered By : Bridget Swenson on 06-21-2024 Serum or plasma calcium measurement (mass/volume) 9.6 mg/dL 8.5-10.1 [facility] Carbon dioxide measurementOr dered By: Bridget Swenson on 06-21-2024 CO2 [Moles/Vol] 30.0 mmol/L 21.0-32.0 [facility] Carbon dioxide measurement 30.0 mmol/L 21.0-32.0 [facility] Chloride measurementOrdered By: Bridget Swenson on 06-21-2024 Chloride [Moles/Vol] 100 mmol/L 98-107 [facility] Chloride measurement 100 mmol/L 98-107 [facility] Creatinine [Mass/Vol]Ordered By: Bridget Swenson on 06-21-2024 Serum or plasma creatinine measurement (mass/volume) 1.04 mg/dL High 0.55-1.02 [facility] Erythrocyte distribution wid th (RBC) [Ratio]Ordered By: Bridget Swenson on 06-21-2024 Erythrocyte distribution width ratio 15.7 % High 11.6-14.6 [facility] Erythrocyte distribution wid th ratioOrdered By: Bridget Swenson on 06-21-2024 Erythrocyte distribution width (RBC) [Ratio] 15.7 % High 11.6-14.6 [facility] Erythrocyte distribution wid th standard deviationOrdered By: Bridget Swenson on 06-21-2024 Erythrocyte distribution width (RBC) [Ratio] 54.6 fl High 35.1-43.9 [facility] Erythrocyte distribution width standard deviation 54.6 fl High 35.1-43.9 [facility] Estimated glomerular filtrat ion rate (GFR) AmericanOrdered By: Bridget Swenson on 06-21-2024 Estimated glomerular filtration rate (GFR) 64 mL/min >60 [facility] Ferritinon 06-21-2024 Ferritin [Mass/Vol] 427 ng/mL High 8-252 [facility] Comment on above: Order Comment: Order Date: 06/21/24Order Info: [id number] - BMPOrder Info: [id number] - FEOrder Info: [id number] - OSCAR Performed By: #### L 100.0500, L100.9950, L500.2500, L503.6150, L503.6550 ####[facility] [address] [place], [address] Ferritin measurementOrdered By: Bridget Swenson on 06-21-2024 Ferritin measurement 427 ng/mL High 8-252 [facility] Glomerular filtration rate ( GFR) estimationOrdered By: Bridget Swenson on 06-21-2024 GFR/1.73 sq M.predicted among non-blacks MDRD (S/P/Bld) [Vol rate/Area] 53 mL/min/{1.73_m2} Low >60 [facility] Glomerular filtration rate (GFR) estimation 53 mL/min Low >60 [facility] Glucose measurementOrdered B y: Bridget Swenson on 06-21-2024 Glucose [Mass/Vol] 96 mg/dL 74-[address] [facility] Glucose measurement 96 mg/dL 74-106 [facility] Hematocrit Auto (Bld) [Volum e fraction]Ordered By: Bridget Swenson on 06-21-2024 Hematocrit (Bld) [Volume fraction] 31.8 % Low 37-47 [facility] Automated blood hematocrit (percentage) 31.8 % Low 37-47 [facility] Hemoglobin (Reticulocytes) [ Entitic mass]Ordered By: Bridget Swenson on 06-21-2024 Reticulocyte hemoglobin equivalent (RET-He) measurement 34.5 pg 30-35 [facility] Hemoglobin measurementOrdere d By: Bridget Swenson on 06-21-2024 Hemoglobin (Bld) [Mass/Vol] 10.0 g/dL Low 12.0-15.0 [facility] Hemoglobin measurement 10.0 g/dL Low 12.0-15.0 [facility] Immature reticulocyte fracti onOrdered By: Bridget Swenson on 06-21-2024 Immature reticulocyte fraction 7.00 % 3.00-15.90 [facility] Ironon 06-21-2024 Iron [Mass/Vol] 67 ug/dL Normal 50-170 [facility] Comment on above: Order Comment: Order Date: 06/21/24Order Info: [id number] - BMPOrder Info: [id number] - FEOrder Info: [id number] - OSCAR Performed By: #### L 100.0500, L100.9950, L500.2500, L503.6150, L503.6550 ####[facility] [address] [place], [address] Iron (Unsp spec) [Mass/Mass] Ordered By: Bridget Swenson on 06-21-2024 Iron measurement (mass/mass) 67 ug/dL 50-170 [facility] Iron measurement (mass/mass) Ordered By: Bridget Swenson on 06-21-2024 Iron (Unsp spec) [Mass/Mass] 67 ug/dL 50-170 [facility] MCV (RBC) [Entitic vol]Order ed By: Bridget Swenson on 06-21-2024 MCV (mean corpuscular volume) determination 94.9 fL 81-99 [facility] MCV (mean corpuscular volume ) determinationOrdered By: Bridget Swenson on 06-21-2024 MCV (RBC) [Entitic vol] 94.9 fL 81-99 [facility] Mean corpuscular hemoglobin (MCH) determinationOrdered By: Bridget Swenson on 06-21-2024 MCH (RBC) [Entitic mass] 29.9 pg 27.0-32.0 [facility] Mean corpuscular hemoglobin (MCH) determination 29.9 pg 27.0-32.0 [facility] Mean corpuscular hemoglobin concentration (MCHC) determinationOrdered By: Bridget Swenson on 06-21-2024 Mean corpuscular hemoglobin concentration (MCHC) determination 31.4 g/dL Low 32-36 [facility] Mean platelet volume determi nationOrdered By: Bridget Swenson on 06-21-2024 Mean platelet volume determination 9.6 fl 6.2-12.0 [facility] Platelet countOrdered By: Zack Swenson on 06-21-2024 Platelets (Bld) [#/Vol] 328 10*3/uL 150-450 [facility] Platelet count 328 K/mm3 150-450 [facility] Potassium measurementOrdered By: Bridget Swenson on 06-21-2024 Potassium [Moles/Vol] 4.5 mmol/L 3.5-5.1 [facility] Potassium measurement 4.5 mmol/L 3.5-5.1 [facility] RBC Auto (Bld) [#/Vol]Ordere d By: Bridget Alcalaroberth on 06-21-2024 RBC (Bld) [#/Vol] 3.35 10*6/uL Low 4.2-5.4 [facility] Automated blood erythrocyte count 3.35 M/mm3 Low 4.2-5.4 [facility] Retic Panelon 06-21-2024 IM RET FRACTION 7.00 Normal 3.00-15.90 [facility] Comment on above: Order Comment: Order Date: 06/21/24Order Info: [id number] - CBCOrder Info: [id number] - RETIC Performed By: #### L 100.0500, L100.9950, L500.2500, L503.6150, L503.6550 ####[facility] [address] [place], [address] RET-HE 34.5 pg Normal 30-35 [facility] Comment on above: Order Comment: Order Date: 06/21/24Order Info: [id number] - CBCOrder Info: [id number] - RETIC Performed By: #### L 100.0500, L100.9950, L500.2500, L503.6150, L503.6550 ####[facility] [address] [place], [address] Retic Count 1.34 Normal 0.5-1.5 [facility] Comment on above: Order Comment: Order Date: 06/21/24Order Info: [id number] - CBCOrder Info: [id number] - RETIC Performed By: #### L 100.0500, L100.9950, L500.2500, L503.6150, L503.6550 ####[facility] [address] [place], [address] Reticulocyte hemoglobin equi valent (RET-He) measurementOrdered By: Bridget Swenson on 06-21-2024 Hemoglobin (Reticulocytes) [Entitic mass] 34.5 pg 30-35 [facility] Reticulocytes Auto (Bld) [#/ Vol]Ordered By: Bridget Swenson on 06-21-2024 Reticulocytes/100 RBC (Bld) 1.34 % 0.5-1.5 [facility] Automated blood reticulocytes count (number/volume) 1.34 % 0.5-1.5 [facility] Serum anion gap measurementO rdered By: Bridget Swenson on 06-21-2024 Serum anion gap measurement 8 5-15 [facility] Serum or plasma calcium manuel urement (mass/volume)Ordered By: Bridget Swenson on 06-21-2024 Calcium [Mass/Vol] 9.6 mg/dL 8.5-10.[address] [facility] Serum or plasma creatinine m easurement (mass/volume)Ordered By: Bridget Swenson on 06-21-2024 Creatinine [Mass/Vol] 1.04 mg/dL High 0.55-1.02 [facility] Serum or plasma urea nitroge n measurement (mass/volume)Ordered By: Bridget Swenson on 06-21-2024 Urea nitrogen [Mass/Vol] 31 mg/dL High 7-18 [facility] Sodium levelOrdered By: Zenaida Swenson on 06-21-2024 Sodium [Moles/Vol] 138 mmol/L 136-[address] [facility] Sodium level 138 mmol/L 136-145 [facility] Urea nitrogen [Mass/Vol]Orde red By: Bridget Swenson on 06-21-2024 Serum or plasma urea nitrogen measurement (mass/volume) 31 mg/dL High - [facility] White blood cell (WBC) count Ordered By: Bridget Swenson on 06-21-2024 WBC (Bld) [#/Vol] 6.1 10*3/uL 4.4-11.[address] [facility] White blood cell (WBC) count 6.1 K/mm3 4.4-11.0 [facility] CNOVon 06-15-2024 CNOV Office Visit (CVAKPO) JOYCE SOLOMON ([id number]) 1935 F CHT Date Time Provider Department 06/15/24 11:00 AM JESSA RETANA During your visit today, we recorded the following information about you: Pulse Blood pressure Weight Height 84/minute 171/44 73.5 kg 1.524 m Jessa Retana APRN.PERSONAL INJURY SPECIALIST 06/29/2024 2:01 AM Signed [facility] Established Visit PCP: Bridget Swenson ([facility]) [address] [place] [address] CEREBROVASCULAR HISTORY Joyce Solomon (Fran) is a 89 year old female who presents for neurologic evaluation following recent hospitalization for acute SAH (05/11/2024-05/16/2024 ). Stroke Event Information Harjit Solomon is a 89 yo F w/ PMH HTN, HLD, pAF on warfarin, NEL on CPAP, osteoporosis, secondary hypothyroidism transferred from [place] ED May 11, 2024 for ICH monitoring. LKW 05/11 in the morning with the patient developing transient weakness and numbness in the RUE for a few seconds CTH at OSH showed a R frontal ICH and cortical SAH appearing along R precentral gyrus. INR 2.0, reversed warfarin with Kcentra, transferred to [facility] for further evaluation. SBP >200 on arrival to ED, started on nicardipine and transferred to [facility] for continuation of care. iNIHSS 2 for bilateral mild drift in the legs (legs were swollen with chronic weakness in legs 2/2 L3-L4 spinal surgery). Repeat CT scan has increased volume in SAH but no clear ICH appreciated. 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 NSGY saw the patient, who felt no surgical intervention was needed. Bcx were negative, TTE with no vegetation, and MARIA ESTHER also unremarkable for signs of infective endocarditis. TCD ultrasound was negative for vasospasm.Patient reported fluctuating LUE weakness so EEG was obtained, which was negative for seizures. The patient's blood pressure was controlled with medication changes, although her diastolic blood pressure would occasionally become slightly lowered. 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 The patient was discharged to a SNF in stable condition with instructions to follow up with stroke neurology, cardiology (for consideration of a Watchman device and BP management), and to obtain a repeat CT head in 4 weeks. 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 Notes residual slurred speech, left side weakness, and mild left hand numbness. Discharging to home with daughter today with home health care, home PT/OT Scheduled to see cardiology in 07/2024 for WATCHMAN evaluation Restless leg syndrome, previously controlled History of atrial fibrillation, previously on Coumadin for 10 years. Intermittently symptomatic. Bilateral lower extremity edema Wheeled walker, was using assistive device prior for chronic lumbar pain + nausea and vomiting following her medication administration at her facility CTH completed at [facility] 06/14/24 PAST MEDICAL HISTORY Diagnosis Date Abdominal pain, unspecified site Abdominal pain, unspecified site Depression Dyslipidemia Flatulence, eructation, and gas pain Fracture L shoulder (2007), Sacral stress fracture; R wrist Hypertension Mitral valve prolapse Obstructive sleep apnea Osteoporosis, unspecified 01/30/2005 Other symptoms involving digestive system(787.99) PAF (paroxysmal atrial fibrillation) ([facility]) 10/20/2013 Thyroid disorder PAST SURGICAL HISTORY Procedure Laterality Date APPENDECTOMY CHOLECYSTECTOMY COLONOSCOPY FLX DX W/COLLJ SPEC WHEN PFRMD 06-12-06 Repeat in COLONOSCOPY FLX DX W/COLLJ SPEC WHEN PFRMD 12/31/2011 Colonoscopy ESOPHAGOGASTRODUODEN OSCOPY TRANSORAL DIAGNOSTIC 12/31/2011 EGD PAST SURGICAL HISTORY OF age 20 gland removed from under chin THYROID LEFT FINE NEEDLE ASPIRATION 12/30/07 U/S FNA Bilateral thyroid nodules THYROIDECTOMY SUBTOTAL/PARTIAL 05/2012 partial TONSILLECTOMY PRIMARY/SECONDARY Tonsillectomy FAMILY HISTORY Problem Relation Age of Onset Heart Mother cerebral anureysm Osteoporosis Mother Diabetes Brother diabetes also in mother's side Social History Tobacco Use Smoking status: Never Smokeless tobacco: Never Substance Use Topics Alcohol use: No Drug use: No MEDICATIONS Current Outpatient Medications Medication Sig furosemide (LASIX) 40 mg tablet Take 40 mg by mouth two times a day. metoprolol tartrate, short acting, (LOPRESSOR) 50 mg tablet Take 50 mg by mouth two times a day. modafinil (PROVIGIL) 100 mg tablet Take by mouth once daily. Pramipexole 3 mg Tb24 Take by mouth. tamsulosin (more content not included)... Normal [facility] Absolute lymphocyte countOrd ered By: Aleks Marshall on 06-14-2024 Lymphocytes Auto (Unsp spec) [#/Vol] 1.51 10*3/uL 0.83-4.51 [facility] Absolute neutrophil countOrd ered By: Aleks Marshall on 06-14-2024 Absolute neutrophil count 3.0 X10^3/uL 2.0-7.7 [facility] Automated lymphocyte count a s percentage of total leukocytesOrdered By: Aleks Marshall on 06-14-2024 Lymphocytes/100 WBC Auto (Unsp spec) 26.8 % 19-41 [facility] Basic Metabolic Profile (BMP )on 06-14-2024 BUN/CRE 36.6 RATIO High 10-20 [facility] Comment on above: Performed By: #### L 100.0100, L500.2500 ####[facility] [address] [place], [address] CA,Total 8.9 mg/dL Normal 8.5-10.1 [facility] Comment on above: Performed By: #### L 100.0100, L500.2500 ####[facility] [address] [place], [address] Chloride [Moles/Vol] 101 mmol/L Normal 98-107 [facility] Comment on above: Performed By: #### L 100.0100, L500.2500 ####[facility] [address] [place], [address] CO2 [Moles/Vol] 24.0 mmol/L Normal 21.0-32.0 [facility] Comment on above: Performed By: #### L 100.0100, L500.2500 ####[facility] [address] [place], [address] Creatinine [Mass/Vol] 0.82 mg/dL Normal 0.55-1.02 [facility] Comment on above: Result Comment: The validity of the calculated GFR GFRAA in patients over70 years has not been determined. Clinical correlation isessential. Performed By: #### L 100.0100, L500.2500 ####[facility] [address] [place], [address] ECRCL 43.24 ml/min Normal [facility] Comment on above: Performed By: #### L 100.0100, L500.2500 ####[facility] [address] [place], [address] EST GFR - AA 85 mL/min Normal >60 [facility] Comment on above: Result Comment: Afri can Kyrgyz GFR Calc Performed By: #### L 100.0100, L500.2500 ####[facility] [address] [place], [address] GAP 7 Normal 5-15 [facility] Comment on above: Performed By: #### L 100.0100, L500.2500 ####[facility] [address] [place], [address] GFR/1.73 sq M.predicted among non-blacks MDRD (S/P/Bld) [Vol rate/Area] 70 mL/min/{1.73_m2} Normal >60 [facility] Comment on above: Result Comment: Non- GFR Calc Performed By: #### L 100.0100, L500.2500 ####[facility] [address] [place], [address] Glucose [Mass/Vol] 95 mg/dL Normal 74-[address] [facility] Comment on above: Performed By: #### L 100.0100, L500.2500 ####[facility] [address] [place], [address] Potassium [Moles/Vol] 4.6 mmol/L Normal 3.5-5.1 [facility] Comment on above: Performed By: #### L 100.0100, L500.2500 ####[facility] [address] [place], [address] Sodium [Moles/Vol] 132 mmol/L Low 136-[address] [facility] Comment on above: Performed By: #### L 100.0100, L500.2500 ####[facility] [address] [place], [address] Urea nitrogen [Mass/Vol] 30 mg/dL High 7-18 [facility] Comment on above: Performed By: #### L 100.0100, L500.2500 ####[facility] [address] [place], [address] Basophil percentageOrdered B y: Aleks Marshall on 06-14-2024 Basophils/100 WBC (Bld) 0.9 % 0-1 [facility] Basophil percentage 0.9 % 0-1 [facility] Blood urea nitrogen (BUN)/cr eatinine ratioOrdered By: Aleks Marshall on 06-14-2024 Blood urea nitrogen (BUN)/creatinine ratio 36.6 RATIO High 10-20 [facility] Brain/Head without Contrasto n 06-14-2024 Brain/Head without Contrast Normal [facility] CBC W/Diff, Automatedon 02-0 Absolute Lymph 1.51 X10 3/uL Normal 0.83-4.51 [facility] Comment on above: Performed By: #### L 100.0100, L500.2500 ####[facility] [address] [place], [address] Absolute Neut 3.0 X10 3/uL Normal 2.0-7.7 [facility] Comment on above: Performed By: #### L 100.0100, L500.2500 ####[facility] [address] [place], [address] Basophils/100 WBC (Bld) 0.9 % Normal 0-1 [facility] Comment on above: Performed By: #### L 100.0100, L500.2500 ####[facility] [address] [place], [address] Eosinophils/100 WBC (Bld) 4.8 % Normal 0-5 [facility] Comment on above: Performed By: #### L 100.0100, L500.2500 ####[facility] [address] [place], [address] Erythrocyte distribution width (RBC) [Ratio] 16.0 % High 11.6-14.6 [facility] Comment on above: Performed By: #### L 100.0100, L500.2500 ####[facility] [address] [place], [address] Hematocrit (Bld) [Volume fraction] 29.7 % Low 37-47 [facility] Comment on above: Performed By: #### L 100.0100, L500.2500 ####[facility] [address] [place], [address] Hemoglobin (Bld) [Mass/Vol] 9.4 g/dL Low 12.0-15.0 [facility] Comment on above: Performed By: #### L 100.0100, L500.2500 ####[facility] [address] [place], [address] IG% 1.200 High 0.0-0.9 [facility] Comment on above: Result Comment: IG% - Immature Granulocytes (promyelocytes, myelocytes andmetamyelocytes) > 1% indicates that a LEFT SHIFT is Present. Performed By: #### L 100.0100, L500.2500 ####[facility] [address] [place], [address] Lymphocytes/100 WBC (Bld) 26.8 % Normal 19-41 [facility] Comment on above: Performed By: #### L 100.0100, L500.2500 ####[facility] [address] [place], [address] MCH (RBC) [Entitic mass] 29.8 pg Normal 27.0-32.0 [facility] Comment on above: Performed By: #### L 100.0100, L500.2500 ####[facility] [address] [place], [address] MCHC (RBC) [Mass/Vol] 31.6 g/dL Low 32-36 [facility] Comment on above: Performed By: #### L 100.0100, L500.2500 ####[facility] [address] [place], [address] MCV (RBC) [Entitic vol] 94.3 fL Normal 81-99 [facility] Comment on above: Performed By: #### L 100.0100, L500.2500 ####[facility] [address] [place], [address] Monocytes/100 WBC (Bld) 12.3 % High 0-10 [facility] Comment on above: Performed By: #### L 100.0100, L500.2500 ####[facility] [address] [place], [address] Neutrophils/100 WBC (Bld) 54.0 % Normal 47-70 [facility] Comment on above: Performed By: #### L 100.0100, L500.2500 ####[facility] [address] [place], [address] Nucleated RBC (Bld) [#/Vol] 0 10*3/uL Normal 0-5 [facility] Comment on above: Performed By: #### L 100.0100, L500.2500 ####[facility] [address] [place], [address] Platelet mean volume (Bld) [Entitic vol] 9.3 fL Normal 6.2-12.0 [facility] Comment on above: Performed By: #### L 100.0100, L500.2500 ####[facility] [address] [place], [address] Platelets (Bld) [#/Vol] 308 10*3/uL Normal 150-450 [facility] Comment on above: Performed By: #### L 100.0100, L500.2500 ####[facility] [address] [place], [address] RBC (Bld) [#/Vol] 3.15 10*6/uL Low 4.2-5.4 [facility] Comment on above: Performed By: #### L 100.0100, L500.2500 ####[facility] [address] [place], [address] RDW SD 55.8 fl High 35.1-43.9 [facility] Comment on above: Performed By: #### L 100.0100, L500.2500 ####[facility] [address] [place], [address] WBC (Bld) [#/Vol] 5.6 10*3/uL Normal 4.4-11.[address] [facility] Comment on above: Performed By: #### L 100.0100, L500.2500 ####[facility] [address] [place], [address] Calcium [Mass/Vol]Ordered By : Aleks Marshall on 06-14-2024 Serum or plasma calcium measurement (mass/volume) 8.9 mg/dL 8.5-10.1 [facility] Carbon dioxide measurementOr dered By: Aleks Marshall on 06-14-2024 CO2 [Moles/Vol] 24.0 mmol/L 21.0-32.0 [facility] Carbon dioxide measurement 24.0 mmol/L 21.0-32.0 [facility] Chloride measurementOrdered By: Aleks Marshall on 06-14-2024 Chloride [Moles/Vol] 101 mmol/L 98-107 [facility] Chloride measurement 101 mmol/L 98-107 [facility] Creatinine [Mass/Vol]Ordered By: Aleks Marshall on 06-14-2024 Serum or plasma creatinine measurement (mass/volume) 0.82 mg/dL 0.55-1.02 [facility] Eosinophil percentageOrdered By: Aleks Marshall on 06-14-2024 Eosinophils/100 WBC (Bld) 4.8 % 0-5 [facility] Eosinophil percentage 4.8 % 0-5 [facility] Erythrocyte distribution wid th (RBC) [Ratio]Ordered By: Aleks Marshall on 06-14-2024 Erythrocyte distribution width ratio 16.0 % High 11.6-14.6 [facility] Erythrocyte distribution wid th ratioOrdered By: Aleks Marshall 06-14-2024 Erythrocyte distribution width (RBC) [Ratio] 16.0 % High 11.6-14.6 [facility] Erythrocyte distribution wid th standard deviationOrdered By: Aleks Marshall 06-14-2024 Erythrocyte distribution width (RBC) [Ratio] 55.8 fl High 35.1-43.9 [facility] Erythrocyte distribution width standard deviation 55.8 fl High 35.1-43.9 [facility] Estimated glomerular filtrat ion rate (GFR) AmericanOrdered By: Aleks Marshall 06-14-2024 Estimated glomerular filtration rate (GFR) 85 mL/min >60 [facility] Estimation of creatinine mary ellen aranceOrdered By: Aleks Marshall 06-14-2024 Estimation of creatinine clearance 43.24 ml/min [facility] Glomerular filtration rate ( GFR) estimationOrdered By: Aleks Marshall 06-14-2024 GFR/1.73 sq M.predicted among non-blacks MDRD (S/P/Bld) [Vol rate/Area] 70 mL/min/{1.73_m2} >60 [facility] Glomerular filtration rate (GFR) estimation 70 mL/min >60 [facility] Glucose measurementOrdered B y: Aleks Marshall on 06-14-2024 Glucose [Mass/Vol] 95 mg/dL 74-106 [facility] Glucose measurement 95 mg/dL 74-106 [facility] Hematocrit Auto (Bld) [Volum e fraction]Ordered By: Aleks Marshall on 06-14-2024 Hematocrit (Bld) [Volume fraction] 29.7 % Low 37-47 [facility] Automated blood hematocrit (percentage) 29.7 % Low 37-47 [facility] Hemoglobin measurementOrdere d By: Aleks Marshall on 06-14-2024 Hemoglobin (Bld) [Mass/Vol] 9.4 g/dL Low 12.0-15.0 [facility] Hemoglobin measurement 9.4 g/dL Low 12.0-15.0 [facility] Immature granulocytes/100 WB C Auto (Bld)Ordered By: Aleks Marshall on 06-14-2024 Immature granulocytes/100 WBC (Bld) 1.200 % High 0.0-0.9 [facility] Automated immature granulocyte percentage 1.200 % High 0.0-0.9 [facility] Lymphocytes Auto (Unsp spec) [#/Vol]Ordered By: Aleks Marshall on 06-14-2024 Absolute lymphocyte count 1.51 X10^3/uL 0.83-4.51 [facility] Lymphocytes/100 WBC Auto (Un sp spec)Ordered By: Aleks Marshall on 06-14-2024 Automated lymphocyte count as percentage of total leukocytes 26.8 % 19-41 [facility] MCV (RBC) [Entitic vol]Order ed By: Aleks Marshall on 06-14-2024 MCV (mean corpuscular volume) determination 94.3 fL 81-99 [facility] MCV (mean corpuscular volume ) determinationOrdered By: Aleks Marshall on 06-14-2024 MCV (RBC) [Entitic vol] 94.3 fL 81-99 [facility] Mean corpuscular hemoglobin (MCH) determinationOrdered By: Aleks Marshall on 06-14-2024 MCH (RBC) [Entitic mass] 29.8 pg 27.0-32.0 [facility] Mean corpuscular hemoglobin (MCH) determination 29.8 pg 27.0-32.0 [facility] Mean corpuscular hemoglobin concentration (MCHC) determinationOrdered By: Aleks Marshall on 06-14-2024 Mean corpuscular hemoglobin concentration (MCHC) determination 31.6 g/dL Low 32-36 [facility] Mean platelet volume determi nationOrdered By: Aleks Marshall on 06-14-2024 Mean platelet volume determination 9.3 fl 6.2-12.0 [facility] Monocyte percentageOrdered B y: Aleks Marshall on 06-14-2024 Monocytes/100 WBC (Bld) 12.3 % High 0-10 [facility] Monocyte percentage 12.3 % High 0-10 [facility] Neutrophil percentageOrdered By: Aleks Marshall on 06-14-2024 Neutrophils/100 WBC (Bld) 54.0 % 47-70 [facility] Neutrophil percentage 54.0 % 47-70 [facility] Nucleated red blood cell per centageOrdered By: Aleks Marshall on 06-14-2024 Nucleated red blood cell percentage 0 % 0-5 [facility] Platelet countOrdered By: Yobany Marshall on 06-14-2024 Platelets (Bld) [#/Vol] 308 10*3/uL 150-450 [facility] Platelet count 308 K/mm3 150-450 [facility] Potassium measurementOrdered By: Aleks Marshall on 06-14-2024 Potassium [Moles/Vol] 4.6 mmol/L 3.5-5.1 [facility] Potassium measurement 4.6 mmol/L 3.5-5.1 [facility] RBC Auto (Bld) [#/Vol]Ordere d By: Aleks Marshall on 06-14-2024 RBC (Bld) [#/Vol] 3.15 10*6/uL Low 4.2-5.4 [facility] Automated blood erythrocyte count 3.15 M/mm3 Low 4.2-5.4 [facility] Serum anion gap measurementO rdered By: Aleks Marshall on 06-14-2024 Serum anion gap measurement 7 5-15 [facility] Serum or plasma calcium manuel urement (mass/volume)Ordered By: Aleks Marshall on 06-14-2024 Calcium [Mass/Vol] 8.9 mg/dL 8.5-10.[address] [facility] Serum or plasma creatinine m easurement (mass/volume)Ordered By: Aleks Marshall on 06-14-2024 Creatinine [Mass/Vol] 0.82 mg/dL 0.55-1.02 [facility] Serum or plasma urea nitroge n measurement (mass/volume)Ordered By: Alkes Marshall on 06-14-2024 Urea nitrogen [Mass/Vol] 30 mg/dL High 11-26 [facility] Sodium levelOrdered By: Aleks Marshall on 06-14-2024 Sodium [Moles/Vol] 132 mmol/L Low 136-[address] [facility] Sodium level 132 mmol/L Low 136-145 [facility] Urea nitrogen [Mass/Vol]Orde red By: Aleks Marshall on 06-14-2024 Serum or plasma urea nitrogen measurement (mass/volume) 30 mg/dL High 11-26 [facility] White blood cell (WBC) count Ordered By: Aleks Marshall on 06-14-2024 WBC (Bld) [#/Vol] 5.6 10*3/uL 4.4-11.[address] [facility] White blood cell (WBC) count 5.6 K/mm3 4.4-11.0 [facility] Basic Metabolic Profile (BMP )on 06-07-2024 BUN/CRE 26.3 RATIO High 10-20 [facility] Comment on above: Performed By: #### L 100.0100, L500.2500 ####[facility] [address] [place], [address] CA,Total 8.7 mg/dL Normal 8.5-10.1 [facility] Comment on above: Performed By: #### L 100.0100, L500.2500 ####[facility] [address] [place], [address] Chloride [Moles/Vol] 98 mmol/L Normal 98-107 [facility] Comment on above: Performed By: #### L 100.0100, L500.2500 ####[facility] [address] [place], [address] CO2 [Moles/Vol] 26.0 mmol/L Normal 21.0-32.0 [facility] Comment on above: Performed By: #### L 100.0100, L500.2500 ####[facility] [address] [place], [address] Creatinine [Mass/Vol] 0.80 mg/dL Normal 0.55-1.02 [facility] Comment on above: Result Comment: The validity of the calculated GFR GFRAA in patients over70 years has not been determined. Clinical correlation isessential. Performed By: #### L 100.0100, L500.2500 ####[facility] [address] [place], [address] ECRCL 44.76 ml/min Normal [facility] Comment on above: Performed By: #### L 100.0100, L500.2500 ####[facility] [address] [place], [address] EST GFR - AA 87 mL/min Normal >60 [facility] Comment on above: Result Comment: Afri can Kyr[place]z GFR Calc Performed By: #### L 100.0100, L500.2500 ####[facility] [address] [place], [address] GAP 7 Normal 5-15 [facility] Comment on above: Performed By: #### L 100.0100, L500.2500 ####[facility] [address] [place], [address] GFR/1.73 sq M.predicted among non-blacks MDRD (S/P/Bld) [Vol rate/Area] 72 mL/min/{1.73_m2} Normal >60 [facility] Comment on above: Result Comment: Non- GFR Calc Performed By: #### L 100.0100, L500.2500 ####[facility] [address] [place], [address] Glucose [Mass/Vol] 96 mg/dL Normal 74-[address] [facility] Comment on above: Performed By: #### L 100.0100, L500.2500 ####[facility] [address] [place], [address] Potassium [Moles/Vol] 4.3 mmol/L Normal 3.5-5.1 [facility] Comment on above: Performed By: #### L 100.0100, L500.2500 ####[facility] [address] [place], [address] Sodium [Moles/Vol] 132 mmol/L Low 136-[address] [facility] Comment on above: Performed By: #### L 100.0100, L500.2500 ####[facility] [address] [place], [address] Urea nitrogen [Mass/Vol] 21 mg/dL High 7-18 [facility] Comment on above: Performed By: #### L 100.0100, L500.2500 ####[facility] [address] [place], [address] CBC W/Diff, Automatedon -2 Absolute Lymph 1.44 X10 3/uL Normal 0.83-4.51 [facility] Comment on above: Performed By: #### L 100.0100, L500.2500 ####[facility] [address] [place], [address] Absolute Neut 4.2 X10 3/uL Normal 2.0-7.7 [facility] Comment on above: Performed By: #### L 100.0100, L500.2500 ####[facility] [address] [place], [address] Basophils/100 WBC (Bld) 1.1 % High 0-1 [facility] Comment on above: Performed By: #### L 100.0100, L500.2500 ####[facility] [address] [place], [address] Eosinophils/100 WBC (Bld) 2.9 % Normal 0-5 [facility] Comment on above: Performed By: #### L 100.0100, L500.2500 ####[facility] [address] [place], [address] Erythrocyte distribution width (RBC) [Ratio] 15.9 % High 11.6-14.6 [facility] Comment on above: Performed By: #### L 100.0100, L500.2500 ####[facility] [address] [place], [address] Hematocrit (Bld) [Volume fraction] 30.4 % Low 37-47 [facility] Comment on above: Performed By: #### L 100.0100, L500.2500 ####[facility] [address] [place], [address] Hemoglobin (Bld) [Mass/Vol] 9.5 g/dL Low 12.0-15.0 [facility] Comment on above: Performed By: #### L 100.0100, L500.2500 ####[facility] [address] [place], [address] IG% 1.200 High 0.0-0.9 [facility] Comment on above: Result Comment: IG% - Immature Granulocytes (promyelocytes, myelocytes andmetamyelocytes) > 1% indicates that a LEFT SHIFT is Present. Performed By: #### L 100.0100, L500.2500 ####[facility] [address] [place], [address] Lymphocytes/100 WBC (Bld) 21.8 % Normal 19-41 [facility] Comment on above: Performed By: #### L 100.0100, L500.2500 ####[facility] [address] [place], [address] MCH (RBC) [Entitic mass] 28.4 pg Normal 27.0-32.0 [facility] Comment on above: Performed By: #### L 100.0100, L500.2500 ####[facility] [address] [place], [address] MCHC (RBC) [Mass/Vol] 31.3 g/dL Low 32-36 [facility] Comment on above: Performed By: #### L 100.0100, L500.2500 ####[facility] [address] [place], [address] MCV (RBC) [Entitic vol] 91.0 fL Normal 81-99 [facility] Comment on above: Performed By: #### L 100.0100, L500.2500 ####[facility] [address] [place], [address] Monocytes/100 WBC (Bld) 10.1 % High 0-10 [facility] Comment on above: Performed By: #### L 100.0100, L500.2500 ####[facility] [address] [place], [address] Neutrophils/100 WBC (Bld) 62.9 % Normal 47-70 [facility] Comment on above: Performed By: #### L 100.0100, L500.2500 ####[facility] [address] [place], [address] Nucleated RBC (Bld) [#/Vol] 0 10*3/uL Normal 0-5 [facility] Comment on above: Performed By: #### L 100.0100, L500.2500 ####[facility] [address] [place], [address] Platelet mean volume (Bld) [Entitic vol] 9.0 fL Normal 6.2-12.0 [facility] Comment on above: Performed By: #### L 100.0100, L500.2500 ####[facility] [address] [place], [address] Platelets (Bld) [#/Vol] 373 10*3/uL Normal 150-450 [facility] Comment on above: Performed By: #### L 100.0100, L500.2500 ####[facility] [address] [place], [address] RBC (Bld) [#/Vol] 3.34 10*6/uL Low 4.2-5.4 [facility] Comment on above: Performed By: #### L 100.0100, L500.2500 ####[facility] [address] [place], [address] RDW SD 52.9 fl High 35.1-43.9 [facility] Comment on above: Performed By: #### L 100.0100, L500.2500 ####[facility] [address] [place], [address] WBC (Bld) [#/Vol] 6.6 10*3/uL Normal 4.4-11.[address] [facility] Comment on above: Performed By: #### L 100.0100, L500.2500 ####[facility] [address] [place], [address] Phosphoruson 06-07-2024 Phosphate [Mass/Vol] 2.9 mg/dL Normal 2.5-4.9 [facility] Comment on above: Order Comment: Comme nts: per DC instructions Performed By: #### L 501.2300 ####[facility] [address] [place], [address] Phosphorus measurementOrdere d By: Aleks Marshall on 06-07-2024 Phosphorus measurement 2.9 mg/dL 2.5-4.9 [facility] HH, Hemoglobin AND Hematocri ton 06-06-2024 Hematocrit (Bld) [Volume fraction] 28.1 % Low 37-47 [facility] Comment on above: Performed By: #### L 100.0600 ####[facility] [address] [place], [address] Hemoglobin (Bld) [Mass/Vol] 8.9 g/dL Low 12.0-15.0 [facility] Comment on above: Performed By: #### L 100.0600 ####[facility] [address] [place], [address] Basic Metabolic Profile (BMP )on 06-05-2024 BUN/CRE 33.4 RATIO High 10-20 [facility] Comment on above: Performed By: #### L 500.2500 ####[facility] [address] [place], [address] CA,Total 9.0 mg/dL Normal 8.5-10.1 [facility] Comment on above: Performed By: #### L 500.2500 ####[facility] [address] [place], [address] Chloride [Moles/Vol] 99 mmol/L Normal 98-107 [facility] Comment on above: Performed By: #### L 500.2500 ####[facility] [address] [place], [address] CO2 [Moles/Vol] 23.0 mmol/L Normal 21.0-32.0 [facility] Comment on above: Performed By: #### L 500.2500 ####[facility] [address] [place], [address] Creatinine [Mass/Vol] 0.93 mg/dL Normal 0.55-1.02 [facility] Comment on above: Result Comment: The validity of the calculated GFR GFRAA in patients over70 years has not been determined. Clinical correlation isessential. Performed By: #### L 500.2500 ####[facility] [address] [place], [address] ECRCL 38.50 ml/min Normal [facility] Comment on above: Performed By: #### L 500.2500 ####[facility] [address] [place], [address] EST GFR - AA 73 mL/min Normal >60 [facility] Comment on above: Result Comment: Afri can Kyrgyz GFR Calc Performed By: #### L 500.2500 ####[facility] [address] [place], [address] GAP 9 Normal 5-15 [facility] Comment on above: Performed By: #### L 500.2500 ####[facility] [address] [place], [address] GFR/1.73 sq M.predicted among non-blacks MDRD (S/P/Bld) [Vol rate/Area] 61 mL/min/{1.73_m2} Normal >60 [facility] Comment on above: Result Comment: Non- GFR Calc Performed By: #### L 500.2500 ####[facility] [address] [place], [address] Glucose [Mass/Vol] 97 mg/dL Normal 74-[address] [facility] Comment on above: Performed By: #### L 500.2500 ####[facility] [address] [place], [address] Potassium [Moles/Vol] 4.1 mmol/L Normal 3.5-5.1 [facility] Comment on above: Performed By: #### L 500.2500 ####[facility] [address] [place], [address] Sodium [Moles/Vol] 131 mmol/L Low 136-[address] [facility] Comment on above: Performed By: #### L 500.2500 ####[facility] [address] [place], [address] Urea nitrogen [Mass/Vol] 31 mg/dL High 7-18 [facility] Comment on above: Performed By: #### L 500.2500 ####[facility] [address] [place], [address] HH, Hemoglobin AND Hematocri ton 06-03-2024 Hematocrit (Bld) [Volume fraction] 30.9 % Low 37-47 [facility] Comment on above: Performed By: #### L 100.0600 ####[facility] [address] [place], [address] Hemoglobin (Bld) [Mass/Vol] 9.4 g/dL Low 12.0-15.0 [facility] Comment on above: Performed By: #### L 100.0600 ####[facility] [address] [place], [address] Basic Metabolic Profile (BMP )on 06-02-2024 BUN/CRE 33.2 RATIO High 10-20 [facility] Comment on above: Performed By: #### L 500.2500 ####[facility] [address] [place], [address] CA,Total 9.0 mg/dL Normal 8.5-10.1 [facility] Comment on above: Performed By: #### L 500.2500 ####[facility] [address] [place], [address] Chloride [Moles/Vol] 105 mmol/L Normal 98-107 [facility] Comment on above: Performed By: #### L 500.2500 ####[facility] [address] [place], [address] CO2 [Moles/Vol] 26.0 mmol/L Normal 21.0-32.0 [facility] Comment on above: Performed By: #### L 500.2500 ####[facility] [address] [place], [address] Creatinine [Mass/Vol] 0.75 mg/dL Normal 0.55-1.02 [facility] Comment on above: Result Comment: The validity of the calculated GFR GFRAA in patients over70 years has not been determined. Clinical correlation isessential. Performed By: #### L 500.2500 ####[facility] [address] [place], [address] ECRCL 44.76 ml/min Normal [facility] Comment on above: Performed By: #### L 500.2500 ####[facility] [address] [place], [address] EST GFR - AA 93 mL/min Normal >60 [facility] Comment on above: Result Comment: Afri can Kyrgyz GFR Calc Performed By: #### L 500.2500 ####[facility] [address] [place], [address] GAP 6 Normal 5-15 [facility] Comment on above: Performed By: #### L 500.2500 ####[facility] [address] [place], [address] GFR/1.73 sq M.predicted among non-blacks MDRD (S/P/Bld) [Vol rate/Area] 77 mL/min/{1.73_m2} Normal >60 [facility] Comment on above: Result Comment: Non- GFR Calc Performed By: #### L 500.2500 ####[facility] [address] [place], [address] Glucose [Mass/Vol] 99 mg/dL Normal 74-[address] [facility] Comment on above: Performed By: #### L 500.2500 ####[facility] [address] [place], [address] Potassium [Moles/Vol] 4.2 mmol/L Normal 3.5-5.1 [facility] Comment on above: Performed By: #### L 500.2500 ####[facility] [address] [place], [address] Sodium [Moles/Vol] 137 mmol/L Normal 136-[address] [facility] Comment on above: Performed By: #### L 500.2500 ####[facility] [address] [place], [address] Urea nitrogen [Mass/Vol] 25 mg/dL High 7-18 [facility] Comment on above: Performed By: #### L 500.2500 ####[facility] [address] [place], [address] HH, Hemoglobin AND Hematocri ton 06-01-2024 Hematocrit (Bld) [Volume fraction] 29.8 % Low 37-47 [facility] Comment on above: Performed By: #### L 100.0600 ####[facility] [address] [place], [address] Hemoglobin (Bld) [Mass/Vol] 9.2 g/dL Low 12.0-15.0 [facility] Comment on above: Performed By: #### L 100.0600 ####[facility] [address] [place], [address] Basic Metabolic Profile (BMP )on 05-31-2024 BUN/CRE 40.2 RATIO High 10-20 [facility] Comment on above: Performed By: #### L 100.0100, L500.2500 ####[facility] [address] [place], [address] CA,Total 9.0 mg/dL Normal 8.5-10.1 [facility] Comment on above: Performed By: #### L 100.0100, L500.2500 ####[facility] [address] [place], [address] Chloride [Moles/Vol] 107 mmol/L Normal 98-107 [facility] Comment on above: Performed By: #### L 100.0100, L500.2500 ####[facility] [address] [place], [address] CO2 [Moles/Vol] 23.0 mmol/L Normal 21.0-32.0 [facility] Comment on above: Performed By: #### L 100.0100, L500.2500 ####[facility] [address] [place], [address] Creatinine [Mass/Vol] 0.77 mg/dL Normal 0.55-1.02 [facility] Comment on above: Result Comment: The validity of the calculated GFR GFRAA in patients over70 years has not been determined. Clinical correlation isessential. Performed By: #### L 100.0100, L500.2500 ####[facility] [address] [place], [address] ECRCL 44.92 ml/min Normal [facility] Comment on above: Performed By: #### L 100.0100, L500.2500 ####[facility] [address] [place], [address] EST GFR - AA 91 mL/min Normal >60 [facility] Comment on above: Result Comment: Afri can Kyrgyz GFR Calc Performed By: #### L 100.0100, L500.2500 ####[facility] [address] [place], [address] GAP 5 Normal 5-15 [facility] Comment on above: Performed By: #### L 100.0100, L500.2500 ####[facility] [address] [place], [address] GFR/1.73 sq M.predicted among non-blacks MDRD (S/P/Bld) [Vol rate/Area] 75 mL/min/{1.73_m2} Normal >60 [facility] Comment on above: Result Comment: Non- GFR Calc Performed By: #### L 100.0100, L500.2500 ####[facility] [address] [place], [address] Glucose [Mass/Vol] 113 mg/dL High 74-[address] [facility] Comment on above: Result Comment: Fast ing Glucose result from 100 to 125 mg/dLsuggests IMPAIRED HOMEOSTASIS per A.D.A. criteria. Performed By: #### L 100.0100, L500.2500 ####[facility] [address] [place], [address] Potassium [Moles/Vol] 4.9 mmol/L Normal 3.5-5.1 [facility] Comment on above: Performed By: #### L 100.0100, L500.2500 ####[facility] [address] [place], [address] Sodium [Moles/Vol] 135 mmol/L Low 136-[address] [facility] Comment on above: Performed By: #### L 100.0100, L500.2500 ####[facility] [address] [place], [address] Urea nitrogen [Mass/Vol] 31 mg/dL High 7-18 [facility] Comment on above: Performed By: #### L 100.0100, L500.2500 ####[facility] [address] [place], [address] CBC W/Diff, Automatedon 01-2 0-5 Absolute Lymph 1.12 X10 3/uL Normal 0.83-4.51 [facility] Comment on above: Performed By: #### L 100.0100, L500.2500 ####[facility] [address] [place], [address] Absolute Neut 4.2 X10 3/uL Normal 2.0-7.7 [facility] Comment on above: Performed By: #### L 100.0100, L500.2500 ####[facility] [address] [place], [address] Basophils/100 WBC (Bld) 1.1 % High 0-1 [facility] Comment on above: Performed By: #### L 100.0100, L500.2500 ####[facility] [address] [place], [address] Eosinophils/100 WBC (Bld) 2.8 % Normal 0-5 [facility] Comment on above: Performed By: #### L 100.0100, L500.2500 ####[facility] [address] [place], [address] Erythrocyte distribution width (RBC) [Ratio] 15.9 % High 11.6-14.6 [facility] Comment on above: Performed By: #### L 100.0100, L500.2500 ####[facility] [address] [place], [address] Hematocrit (Bld) [Volume fraction] 30.2 % Low 37-47 [facility] Comment on above: Performed By: #### L 100.0100, L500.2500 ####[facility] [address] [place], [address] Hemoglobin (Bld) [Mass/Vol] 9.3 g/dL Low 12.0-15.0 [facility] Comment on above: Performed By: #### L 100.0100, L500.2500 ####[facility] [address] [place], [address] IG% 1.300 High 0.0-0.9 [facility] Comment on above: Result Comment: IG% - Immature Granulocytes (promyelocytes, myelocytes andmetamyelocytes) > 1% indicates that a LEFT SHIFT is Present. Performed By: #### L 100.0100, L500.2500 ####[facility] [address] [place], [address] Lymphocytes/100 WBC (Bld) 18.1 % Low 19-41 [facility] Comment on above: Performed By: #### L 100.0100, L500.2500 ####[facility] [address] [place], [address] MCH (RBC) [Entitic mass] 29.5 pg Normal 27.0-32.0 [facility] Comment on above: Performed By: #### L 100.0100, L500.2500 ####[facility] [address] [place], [address] MCHC (RBC) [Mass/Vol] 30.8 g/dL Low 32-36 [facility] Comment on above: Performed By: #### L 100.0100, L500.2500 ####[facility] [address] [place], [address] MCV (RBC) [Entitic vol] 95.9 fL Normal 81-99 [facility] Comment on above: Performed By: #### L 100.0100, L500.2500 ####[facility] [address] [place], [address] Monocytes/100 WBC (Bld) 9.2 % Normal 0-10 [facility] Comment on above: Performed By: #### L 100.0100, L500.2500 ####[facility] [address] [place], [address] Neutrophils/100 WBC (Bld) 67.5 % Normal 47-70 [facility] Comment on above: Performed By: #### L 100.0100, L500.2500 ####[facility] [address] [place], [address] Nucleated RBC (Bld) [#/Vol] 0 10*3/uL Normal 0-5 [facility] Comment on above: Performed By: #### L 100.0100, L500.2500 ####[facility] [address], [address] Platelet mean volume (Bld) [Entitic vol] 9.5 fL Normal 6.2-12.0 [facility] Comment on above: Performed By: #### L 100.0100, L500.2500 ####[facility] [address] [place], [address] Platelets (Bld) [#/Vol] 293 10*3/uL Normal 150-450 [facility] Comment on above: Performed By: #### L 100.0100, L500.2500 ####[facility] [address] [place], [address] RBC (Bld) [#/Vol] 3.15 10*6/uL Low 4.2-5.4 [facility] Comment on above: Performed By: #### L 100.0100, L500.2500 ####[facility] [address] [place], [address] RDW SD 55.9 fl High 35.1-43.9 [facility] Comment on above: Performed By: #### L 100.0100, L500.2500 ####[facility] [address] [place], [address] WBC (Bld) [#/Vol] 6.2 10*3/uL Normal 4.4-11.[address] [facility] Comment on above: Performed By: #### L 100.0100, L500.2500 ####[facility] [address] [place], [address] Venous Duplex US - Yfn Extre mon 05-31-2024 Venous Duplex US - Yfn Extrem Normal [facility] Clarity (U)Ordered By: Joyce Rousseau on 05-28-2024 Urine clarity Clear Clear [facility] Color (U)Ordered By: Joyce dumont on 05-28-2024 Urine color determination Yellow Yellow [facility] Leukocyte esterase Test stri p Ql (U)Ordered By: Joyce Rousseau on 05-28-2024 Urine leukocyte esterase detection by dipstick 25 /ul High Negative [facility] Microscopic analysis of urin e for red blood cells (RBC)Ordered By: Joyce Cliffordcarlitos on 05-28-2024 Microscopic analysis of urine for red blood cells (RBC) 5-10 SEEN /hpf 0-5 [facility] Protein Test strip Ql (U)Ord ered By: Joyce Rousseau on 05-28-2024 Urine protein assay by test strip, semi-quantitative 15 mg/dl High Negative [facility] Specific gravity (U) [Rel de nsity]Ordered By: Joyce Cliffordcarlitos on 05-28-2024 Urine specific gravity measurement 1.010 1.002-1.030 [facility] Squamous epithelial cells de tection in urine sediment by light microscopyOrdered By: Joyce Cliffordcarlitos on 05-28-2024 Squamous epithelial cells detection in urine sediment by light microscopy 0 SEEN /hpf [facility] Urinalysis, Completeon 05-28 RBC 5-10 SEEN Normal 0-5 [facility] Comment on above: Order Comment: COLT TER SPECIMEN Performed By: #### L 400.0001 ####[facility] [address] [facility] [address] WBC 0-5 SEEN Normal 0-5 [facility] Comment on above: Order Comment: COLT TER SPECIMEN Performed By: #### L 400.0001 ####[facility] [address] [place], [address] BACTERIA 0 SEEN Normal None Seen [facility] Comment on above: Order Comment: COLT TER SPECIMEN Performed By: #### L 400.0001 ####[facility] [address] [place], [address] EPI,SQUAMOUS 0 SEEN Normal 5-10 [facility] Comment on above: Order Comment: COLT TER SPECIMEN Performed By: #### L 400.0001 ####[facility] [address] [place], [address] Mucus Ql (Urine sed) 0 SEEN Normal [facility] Comment on above: Order Comment: COLT TER SPECIMEN Performed By: #### L 400.0001 ####[facility] [address] [place], [address] Urine blood detectionOrdered By: Joyce Rousseau on 05-28-2024 Urine blood detection 50 /ul High Negative [facility] Urine glucose detectionOrder ed By: Joyce Onelia on 05-28-2024 Urine glucose detection Normal mg/dl Normal [facility] Urine total bilirubin detect ion by test stripOrdered By: Joyce Rousseau on 05-28-2024 Urine total bilirubin detection by test strip Negative Negative [facility] White blood cell countOrdere d By: Joyce Rousseau on 05-28-2024 White blood cell count 0-5 SEEN /hpf 0-5 [facility] pH (U)Ordered By: Joyce urbina on 05-28-2024 Urine pH 6.5 5.0 - 8.0 [facility] Basic Metabolic Profile (BMP )on 05-24-2024 BUN/CRE 26.9 RATIO High 10-20 [facility] Comment on above: Performed By: #### L 100.0500, L500.2500, L501.5200 ####[facility] [address] [place], [address] CA,Total 8.7 mg/dL Normal 8.5-10.1 [facility] Comment on above: Performed By: #### L 100.0500, L500.2500, L501.5200 ####[facility] [address] [place], [address] Chloride [Moles/Vol] 110 mmol/L High 98-107 [facility] Comment on above: Performed By: #### L 100.0500, L500.2500, L501.5200 ####[facility] [address] [place], [address] CO2 [Moles/Vol] 24.0 mmol/L Normal 21.0-32.0 [facility] Comment on above: Performed By: #### L 100.0500, L500.2500, L501.5200 ####[facility] [address] [place], [address] Creatinine [Mass/Vol] 0.93 mg/dL Normal 0.55-1.02 [facility] Comment on above: Result Comment: The validity of the calculated GFR GFRAA in patients over70 years has not been determined. Clinical correlation isessential. Performed By: #### L 100.0500, L500.2500, L501.5200 ####[facility] [address] [place], [address] ECRCL 37.45 ml/min Normal [facility] Comment on above: Performed By: #### L 100.0500, L500.2500, L501.5200 ####[facility] [address] [place], [address] EST GFR - AA 73 mL/min Normal >60 [facility] Comment on above: Result Comment: Afri can Kyr[place]z GFR Calc Performed By: #### L 100.0500, L500.2500, L501.5200 ####[facility] [address] [place], [address] GAP 5 Normal 5-15 [facility] Comment on above: Performed By: #### L 100.0500, L500.2500, L501.5200 ####[facility] [address] [place], [address] GFR/1.73 sq M.predicted among non-blacks MDRD (S/P/Bld) [Vol rate/Area] 61 mL/min/{1.73_m2} Normal >60 [facility] Comment on above: Result Comment: Non- GFR Calc Performed By: #### L 100.0500, L500.2500, L501.5200 ####[facility] [address] [place], [address] Glucose [Mass/Vol] 93 mg/dL Normal 74-[address] [facility] Comment on above: Performed By: #### L 100.0500, L500.2500, L501.5200 ####[facility] [address] [place], [address] Potassium [Moles/Vol] 4.7 mmol/L Normal 3.5-5.1 [facility] Comment on above: Performed By: #### L 100.0500, L500.2500, L501.5200 ####[facility] [address] [place], [address] Sodium [Moles/Vol] 138 mmol/L Normal 136-[address] [facility] Comment on above: Performed By: #### L 100.0500, L500.2500, L501.5200 ####[facility] [address] [place], [address] Urea nitrogen [Mass/Vol] 25 mg/dL High 7-18 [facility] Comment on above: Performed By: #### L 100.0500, L500.2500, L501.5200 ####[facility] [address] [place], [address] Blood urea nitrogen (BUN)/cr eatinine ratioOrdered By: Joyce Rousseau on 05-24-2024 Blood urea nitrogen (BUN)/creatinine ratio 26.9 RATIO High 10-20 [facility] CBC-Complete Blood Cnt No Di ffon 05-24-2024 Erythrocyte distribution width (RBC) [Ratio] 15.7 % High 11.6-14.6 [facility] Comment on above: Performed By: #### L 100.0500, L500.2500, L501.5200 ####[facility] [address] [place], [address] Hematocrit (Bld) [Volume fraction] 33.8 % Low 37-47 [facility] Comment on above: Performed By: #### L 100.0500, L500.2500, L501.5200 ####[facility] [address] [place], [address] Hemoglobin (Bld) [Mass/Vol] 10.6 g/dL Low 12.0-15.0 [facility] Comment on above: Performed By: #### L 100.0500, L500.2500, L501.5200 ####[facility] [address] [place], [address] MCH (RBC) [Entitic mass] 29.0 pg Normal 27.0-32.0 [facility] Comment on above: Performed By: #### L 100.0500, L500.2500, L501.5200 ####[facility] [address] [place], [address] MCHC (RBC) [Mass/Vol] 31.4 g/dL Low 32-36 [facility] Comment on above: Performed By: #### L 100.0500, L500.2500, L501.5200 ####[facility] [address] [place], [address] MCV (RBC) [Entitic vol] 92.3 fL Normal 81-99 [facility] Comment on above: Performed By: #### L 100.0500, L500.2500, L501.5200 ####[facility] [address] [place], [address] Platelet mean volume (Bld) [Entitic vol] 9.4 fL Normal 6.2-12.0 [facility] Comment on above: Performed By: #### L 100.0500, L500.2500, L501.5200 ####[facility] [address] [place], [address] Platelets (Bld) [#/Vol] 433 10*3/uL Normal 150-450 [facility] Comment on above: Performed By: #### L 100.0500, L500.2500, L501.5200 ####[facility] [address] [place], [address] RBC (Bld) [#/Vol] 3.66 10*6/uL Low 4.2-5.4 [facility] Comment on above: Performed By: #### L 100.0500, L500.2500, L501.5200 ####[facility] [address] [place], [address] RDW SD 52.7 fl High 35.1-43.9 [facility] Comment on above: Performed By: #### L 100.0500, L500.2500, L501.5200 ####[facility] [address] [place], [address] WBC (Bld) [#/Vol] 8.3 10*3/uL Normal 4.4-11.[address] [facility] Comment on above: Performed By: #### L 100.0500, L500.2500, L501.5200 ####[facility] [address] [place], [address] Calcium [Mass/Vol]Ordered By : Joyce Rousseau on 05-24-2024 Serum or plasma calcium measurement (mass/volume) 8.7 mg/dL 8.5-10.1 [facility] Carbon dioxide measurementOr dered By: Joyce Rousseau on 05-24-2024 Carbon dioxide measurement 24.0 mmol/L 21.0-32.0 [facility] Chloride measurementOrdered By: Joyce Rousseau on 05-24-2024 Chloride measurement 110 mmol/L High 98-107 [facility] Creatinine [Mass/Vol]Ordered By: Joyce Rousseau on 05-24-2024 Serum or plasma creatinine measurement (mass/volume) 0.93 mg/dL 0.55-1.02 [facility] Erythrocyte distribution wid th (RBC) [Ratio]Ordered By: Joyce Rousseau on 05-24-2024 Erythrocyte distribution width ratio 15.7 % High 11.6-14.6 [facility] Erythrocyte distribution wid th standard deviationOrdered By: Joyce Rousseau on 05-24-2024 Erythrocyte distribution width standard deviation 52.7 fl High 35.1-43.9 [facility] Estimated glomerular filtrat ion rate (GFR) AmericanOrdered By: Joyce Rousseau on 05-24-2024 Estimated glomerular filtration rate (GFR) 73 mL/min >60 [facility] Estimation of creatinine mary ellen aranceOrdered By: Joyce Rousseau on 05-24-2024 Estimation of creatinine clearance 37.45 ml/min [facility] Glomerular filtration rate ( GFR) estimationOrdered By: Joyce Rousseau on 05-24-2024 Glomerular filtration rate (GFR) estimation 61 mL/min >60 [facility] Glucose measurementOrdered B y: Joyce Rousseau on 05-24-2024 Glucose measurement 93 mg/dL 74-106 [facility] Hematocrit Auto (Bld) [Volum e fraction]Ordered By: Joyce Rousseau on 05-24-2024 Automated blood hematocrit (percentage) 33.8 % Low 37-47 [facility] Hemoglobin measurementOrdere d By: Joyce Rousseau on 05-24-2024 Hemoglobin measurement 10.6 g/dL Low 12.0-15.0 [facility] MCV (RBC) [Entitic vol]Order ed By: Joyce Rousseau on 05-24-2024 MCV (mean corpuscular volume) determination 92.3 fL 81-99 [facility] Magnesiumon 05-24-2024 Magnesium [Mass/Vol] 2.5 mg/dL Normal 1.6-2.6 [facility] Comment on above: Performed By: #### L 100.0500, L500.2500, L501.5200 ####[facility] [address] [place], [place], [address] Magnesium measurementOrdered By: Joyce Rousseau on 05-24-2024 Magnesium measurement 2.5 mg/dL 1.6-2.6 [facility] Mean corpuscular hemoglobin (MCH) determinationOrdered By: Joyce Rousseau on 05-24-2024 Mean corpuscular hemoglobin (MCH) determination 29.0 pg 27.0-32.0 [facility] Mean corpuscular hemoglobin concentration (MCHC) determinationOrdered By: Joyce Rousseau on 05-24-2024 Mean corpuscular hemoglobin concentration (MCHC) determination 31.4 g/dL Low 32-36 [facility] Mean platelet volume determi nationOrdered By: Joyce Rousseau on 05-24-2024 Mean platelet volume determination 9.4 fl 6.2-12.0 [facility] Phosphoruson 05-24-2024 Phosphate [Mass/Vol] 2.1 mg/dL Low 2.5-4.9 [facility] Comment on above: Performed By: #### L 501.2300 ####[facility] [address] [place], [place], [address] Phosphorus measurementOrdere d By: Joyce Rousseau on 05-24-2024 Phosphorus measurement 2.1 mg/dL Low 2.5-4.9 [facility] Platelet countOrdered By: Sammy oh Rousseau on 05-24-2024 Platelet count 433 K/mm3 150-450 [facility] Potassium measurementOrdered By: Joyce Roussaeu on 05-24-2024 Potassium measurement 4.7 mmol/L 3.5-5.1 [facility] RBC Auto (Bld) [#/Vol]Ordere d By: Joyce Onelia on 05-24-2024 Automated blood erythrocyte count 3.66 M/mm3 Low 4.2-5.4 [facility] Serum anion gap measurementO rdered By: Joyce Rousseau on 05-24-2024 Serum anion gap measurement 5 5-15 [facility] Sodium levelOrdered By: Joyce Rousseau on 05-24-2024 Sodium level 138 mmol/L 136-145 [facility] Urea nitrogen [Mass/Vol]Orde red By: Joyce Rousseau on 05-24-2024 Serum or plasma urea nitrogen measurement (mass/volume) 25 mg/dL High 7-18 [facility] White blood cell (WBC) count Ordered By: Joyce Rousseau on 05-24-2024 White blood cell (WBC) count 8.3 K/mm3 4.4-11.0 [facility] Stool Occult Blood iFOBon STOB Negative Normal [facility] Comment on above: Performed By: #### M 100.7900 ####[facility] [address] [place], [place], [address] Urine Cultureon 05-19-2024 URC Normal [facility] Comment on above: Performed By: #### M 100.2200 ####[facility] [address] [place], [address] Ferritinon 05-18-2024 Ferritin [Mass/Vol] 113 ng/mL Normal 8-252 [facility] Comment on above: Performed By: #### L 503.6030, L503.6550 ####[facility] [address] [place], [address] Ferritin measurementOrdered By: Joyce Rousseau on 05-18-2024 Ferritin measurement 113 ng/mL 8-252 [facility] Iron (Unsp spec) [Mass/Mass] Ordered By: Joyce Rousseau on 05-18-2024 Iron measurement (mass/mass) 61 ug/dL 50-170 [facility] Iron saturation [Mass fracti on]Ordered By: Joyce Rousseau on 05-18-2024 Serum or plasma iron saturation measurement (mass fraction) 11.2 % Low 15.0-55.0 [facility] Iron+Iron Binding Capacityon 05-18-2024 Iron [Mass/Vol] 61 ug/dL Normal 50-170 [facility] Comment on above: Performed By: #### L 503.6030, L503.6550 ####[facility] [address] [place], [address] IRON SATURATION 11.2 Low 15.0-55.0 [facility] Comment on above: Performed By: #### L 503.6030, L503.6550 ####[facility] [address] [place], [address] TIBC 546 ug/dL High 250-450 [facility] Comment on above: Performed By: #### L 503.6030, L503.6550 ####[facility] [address] [place], [address] TIBCOrdered By: Joyce Rousseau on 05-18-2024 TIBC 546 ug/dL High 250-450 [facility] ALP [Catalytic activity/Vol] Ordered By: Aleks Marshall on 05-17-2024 Serum or plasma alkaline phosphatase measurement 59 U/L 45-117 [facility] ALT [Catalytic activity/Vol] Ordered By: Aleks Marshall on 05-17-2024 Serum or plasma alanine aminotransferase (ALT) measurement 20 U/L 13-56 [facility] Absolute neutrophil countOrd ered By: Aleks Marshall on 05-17-2024 Absolute neutrophil count 4.6 X10^3/uL 2.0-7.7 [facility] Albumin [Mass/Vol]Ordered By : Aleks Marshall on 05-17-2024 Serum or plasma albumin measurement (mass/volume) 3.0 g/dL Low 3.2-5.0 [facility] Albumin to globulin ratioOrd ered By: [facility] Rolando on 05-17-2024 Albumin to globulin ratio 0.8 RATIO Low 0.9-2.4 [facility] Basophil percentageOrdered B y: Aleks Marshall on 05-17-2024 Basophil percentage 0.9 % 0-1 [facility] Bilirubin, totalOrdered By: Aleks Marshall on 05-17-2024 Bilirubin, total 0.30 mg/dL 0.20-1.00 [facility] CBC W/Diff, Automatedon Absolute Lymph 1.66 X10 3/uL Normal 0.83-4.51 [facility] Comment on above: Performed By: #### L 100.0100, L500.4050, L501.2300, L501.5200 ####[facility] [address] [place], [address] Absolute Neut 4.6 X10 3/uL Normal 2.0-7.7 [facility] Comment on above: Performed By: #### L 100.0100, L500.4050, L501.2300, L501.5200 ####[facility] [address] [place], [address] Basophils/100 WBC (Bld) 0.9 % Normal 0-1 [facility] Comment on above: Performed By: #### L 100.0100, L500.4050, L501.2300, L501.5200 ####[facility] [address] [place], [address] Eosinophils/100 WBC (Bld) 5.1 % High 0-5 [facility] Comment on above: Performed By: #### L 100.0100, L500.4050, L501.2300, L501.5200 ####[facility] [address] [place], [address] Erythrocyte distribution width (RBC) [Ratio] 14.3 % Normal 11.6-14.6 [facility] Comment on above: Performed By: #### L 100.0100, L500.4050, L501.2300, L501.5200 ####[facility] [address] [place], [address] Hematocrit (Bld) [Volume fraction] 34.6 % Low 37-47 [facility] Comment on above: Performed By: #### L 100.0100, L500.4050, L501.2300, L501.5200 ####[facility] [address] [place], [address] Hemoglobin (Bld) [Mass/Vol] 10.7 g/dL Low 12.0-15.0 [facility] Comment on above: Performed By: #### L 100.0100, L500.4050, L501.2300, L501.5200 ####[facility] [address] [place], [address] IG% 0.700 Normal 0.0-0.9 [facility] Comment on above: Result Comment: IG% - Immature Granulocytes (promyelocytes, myelocytes andmetamyelocytes) > 1% indicates that a LEFT SHIFT is Present. Performed By: #### L 100.0100, L500.4050, L501.2300, L501.5200 ####[facility] [address] [place], [address] Lymphocytes/100 WBC (Bld) 21.8 % Normal 19-41 [facility] Comment on above: Performed By: #### L 100.0100, L500.4050, L501.2300, L501.5200 ####[facility] [address] [place], [address] MCH (RBC) [Entitic mass] 28.1 pg Normal 27.0-32.0 [facility] Comment on above: Performed By: #### L 100.0100, L500.4050, L501.2300, L501.5200 ####[facility] [address] [place], [address] MCHC (RBC) [Mass/Vol] 30.9 g/dL Low 32-36 [facility] Comment on above: Performed By: #### L 100.0100, L500.4050, L501.2300, L501.5200 ####[facility] [address] [place], [address] MCV (RBC) [Entitic vol] 90.8 fL Normal 81-99 [facility] Comment on above: Performed By: #### L 100.0100, L500.4050, L501.2300, L501.5200 ####[facility] [address] [place], [address] Monocytes/100 WBC (Bld) 10.8 % High 0-10 [facility] Comment on above: Performed By: #### L 100.0100, L500.4050, L501.2300, L501.5200 ####[facility] [address] [place], [address] Neutrophils/100 WBC (Bld) 60.7 % Normal 47-70 [facility] Comment on above: Performed By: #### L 100.0100, L500.4050, L501.2300, L501.5200 ####[facility] [address] [place], [address] Nucleated RBC (Bld) [#/Vol] 0 10*3/uL Normal 0-5 [facility] Comment on above: Performed By: #### L 100.0100, L500.4050, L501.2300, L501.5200 ####[facility] [address] [place], [address] Platelet mean volume (Bld) [Entitic vol] 9.7 fL Normal 6.2-12.0 [facility] Comment on above: Performed By: #### L 100.0100, L500.4050, L501.2300, L501.5200 ####[facility] [address] [place], [address] Platelets (Bld) [#/Vol] 369 10*3/uL Normal 150-450 [facility] Comment on above: Performed By: #### L 100.0100, L500.4050, L501.2300, L501.5200 ####[facility] [address] [place], [address] RBC (Bld) [#/Vol] 3.81 10*6/uL Low 4.2-5.4 [facility] Comment on above: Performed By: #### L 100.0100, L500.4050, L501.2300, L501.5200 ####[facility] [address] [place], [address] RDW SD 47.6 fl High 35.1-43.9 [facility] Comment on above: Performed By: #### L 100.0100, L500.4050, L501.2300, L501.5200 ####[facility] [address] [place], [address] WBC (Bld) [#/Vol] 7.6 10*3/uL Normal 4.4-11.[address] [facility] Comment on above: Performed By: #### L 100.0100, L500.4050, L501.2300, L501.5200 ####[facility] [address] [place], [address] Comprehensive Metabolic Prof ilon 05-17-2024 Albumin [Mass/Vol] 3.0 g/dL Low 3.2-5.[address] [facility] Comment on above: Performed By: #### L 100.0100, L500.4050, L501.2300, L501.5200 ####[facility] [address] [place], [address] Albumin/Globulin [Mass ratio] 0.8 {ratio} Low 0.9-2.4 [facility] Comment on above: Performed By: #### L 100.0100, L500.4050, L501.2300, L501.5200 ####[facility] [address] [place], [address] ALK P 59 U/L Normal 45-117 [facility] Comment on above: Performed By: #### L 100.0100, L500.4050, L501.2300, L501.5200 ####[facility] [address] [place], [address] ALT [Catalytic activity/Vol] 20 U/L Normal 13-56 [facility] Comment on above: Performed By: #### L 100.0100, L500.4050, L501.2300, L501.5200 ####[facility] [address] [place], [address] AST [Catalytic activity/Vol] 28 U/L Normal 15-37 [facility] Comment on above: Performed By: #### L 100.0100, L500.4050, L501.2300, L501.5200 ####[facility] [address] [place], [address] Bilirubin [Mass/Vol] 0.30 mg/dL Normal 0.20-1.00 [facility] Comment on above: Result Comment: For patients on eltrombopag therapy, use of Dimension [place] TBIL is not recommended. Performed By: #### L 100.0100, L500.4050, L501.2300, L501.5200 ####[facility] [address] [place], [address] BUN/CRE 34.4 RATIO High 10-20 [facility] Comment on above: Performed By: #### L 100.0100, L500.4050, L501.2300, L501.5200 ####[facility] [address] [place], [address] CA,Total 8.8 mg/dL Normal 8.5-10.1 [facility] Comment on above: Performed By: #### L 100.0100, L500.4050, L501.2300, L501.5200 ####[facility] [address] [place], [address] Chloride [Moles/Vol] 106 mmol/L Normal 98-107 [facility] Comment on above: Performed By: #### L 100.0100, L500.4050, L501.2300, L501.5200 ####[facility] [address] [place], [address] CO2 [Moles/Vol] 25.0 mmol/L Normal 21.0-32.0 [facility] Comment on above: Performed By: #### L 100.0100, L500.4050, L501.2300, L501.5200 ####[facility] [address] [place], [address] Creatinine [Mass/Vol] 0.82 mg/dL Normal 0.55-1.02 [facility] Comment on above: Result Comment: The validity of the calculated GFR GFRAA in patients over70 years has not been determined. Clinical correlation isessential. Performed By: #### L 100.0100, L500.4050, L501.2300, L501.5200 ####[facility] [address] [place], [address] ECRCL 42.52 ml/min Normal [facility] Comment on above: Performed By: #### L 100.0100, L500.4050, L501.2300, L501.5200 ####[facility] [address] [place], [address] EST GFR - AA 85 mL/min Normal >60 [facility] Comment on above: Result Comment: Afri can [place] GFR Calc Performed By: #### L 100.0100, L500.4050, L501.2300, L501.5200 ####[facility] [address] [place], [address] GAP 5 Normal 5-15 [facility] Comment on above: Performed By: #### L 100.0100, L500.4050, L501.2300, L501.5200 ####[facility] [address] [place], [address] GFR/1.73 sq M.predicted among non-blacks MDRD (S/P/Bld) [Vol rate/Area] 70 mL/min/{1.73_m2} Normal >60 [facility] Comment on above: Result Comment: Non- GFR Calc Performed By: #### L 100.0100, L500.4050, L501.2300, L501.5200 ####[facility] [address] [place], [address] Globulin (S) [Mass/Vol] 3.7 g/dL Normal 2.2-4.2 [facility] Comment on above: Performed By: #### L 100.0100, L500.4050, L501.2300, L501.5200 ####[facility] [address] [place], [address] Glucose [Mass/Vol] 102 mg/dL Normal 74-[address] [facility] Comment on above: Result Comment: Fast ing Glucose result from 100 to 125 mg/dLsuggests IMPAIRED HOMEOSTASIS per A.D.A. criteria. Performed By: #### L 100.0100, L500.4050, L501.2300, L501.5200 ####[facility] [address] [place], [address] Potassium [Moles/Vol] 4.1 mmol/L Normal 3.5-5.1 [facility] Comment on above: Performed By: #### L 100.0100, L500.4050, L501.2300, L501.5200 ####[facility] [address] [place], [address] Sodium [Moles/Vol] 136 mmol/L Normal 136-[address] [facility] Comment on above: Performed By: #### L 100.0100, L500.4050, L501.2300, L501.5200 ####[facility] [address] [place], [address] T PROT 6.7 g/dL Normal 6.4-8.2 [facility] Comment on above: Performed By: #### L 100.0100, L500.4050, L501.2300, L501.5200 ####[facility] [address] [place], [address] Urea nitrogen [Mass/Vol] 28 mg/dL High 7-18 [facility] Comment on above: Performed By: #### L 100.0100, L500.4050, L501.2300, L501.5200 ####[facility] [address] [place], [address] Eosinophil percentageOrdered By: Aleks Marshall on 05-17-2024 Eosinophil percentage 5.1 % High 0-5 [facility] Immature granulocytes/100 WB C Auto (Bld)Ordered By: Aleks Marshall on 05-17-2024 Automated immature granulocyte percentage 0.700 % 0.0-0.9 [facility] Lymphocytes Auto (Unsp spec) [#/Vol]Ordered By: Aleks Marshall on 05-17-2024 Absolute lymphocyte count 1.66 X10^3/uL 0.83-4.51 [facility] Lymphocytes/100 WBC Auto (Un sp spec)Ordered By: Aleks Marshall on 05-17-2024 Automated lymphocyte count as percentage of total leukocytes 21.8 % 19-41 [facility] Magnesiumon 05-17-2024 Magnesium [Mass/Vol] 2.4 mg/dL Normal 1.6-2.6 [facility] Comment on above: Performed By: #### L 100.0100, L500.4050, L501.2300, L501.5200 ####[facility] [address] [place], [place], [address] Monocyte percentageOrdered B y: Aleks Marshall on 05-17-2024 Monocyte percentage 10.8 % High 0-10 [facility] Neutrophil percentageOrdered By: Aleks Marshall on 05-17-2024 Neutrophil percentage 60.7 % 47-70 [facility] No Panel InformationOrdered By: Aleks Marshall on 05-17-2024 28 U/L 15-37 [facility] Nucleated red blood cell per centageOrdered By: Aleks Marshall on 05-17-2024 Nucleated red blood cell percentage 0 % 0-5 [facility] Phosphoruson 05-17-2024 Phosphate [Mass/Vol] 2.4 mg/dL Low 2.5-4.9 [facility] Comment on above: Performed By: #### L 100.0100, L500.4050, L501.2300, L501.5200 ####[facility] [address] [place], [place], [address] Serum globulin measurementOr dered By: Aleks Marshall on 05-17-2024 Serum globulin measurement 3.7 g/dL 2.2-4.2 [facility] Total proteinOrdered By: Aleks Marshall on 05-17-2024 Total protein 6.7 g/dL 6.4-8.2 [facility] Urinalysis, Completeon 05-17 WBC 5-10 SEEN Normal 0-5 [facility] Comment on above: Order Comment: COLT TER SPECIMEN Performed By: #### L 400.0001 ####[facility] [address] [place], [address] BACTERIA 0 SEEN Normal None Seen [facility] Comment on above: Order Comment: COLT TER SPECIMEN Performed By: #### L 400.0001 ####[facility] [address] [place], [address] EPI,SQUAMOUS 0 SEEN Normal 5-10 [facility] Comment on above: Order Comment: COLT TER SPECIMEN Performed By: #### L 400.0001 ####[facility] [address] [place], [address] Mucus Ql (Urine sed) 0 SEEN Normal [facility] Comment on above: Order Comment: COLT TER SPECIMEN Performed By: #### L 400.0001 ####[facility] [address] [place], [address] RBC 0 SEEN Normal 0-5 [facility] Comment on above: Order Comment: COLT TER SPECIMEN Performed By: #### L 400.0001 ####[facility] [address] [place], [address] Urine cultureOrdered By: Aleks Marshall on 05-17-2024 Urine culture Escherichia coli Abnormal [facility] ALLIED HEALTHon 05-16-2024 ALLIED HEALTH HNO ID: [id number] Author: MELISSA HAYES, Art Therapist Service: Art Therapy Author Type: Therapist Type: Allied Health Filed: 05/16/2024 12:15 Note Text: ART THERAPY NOTE SERVICE DATE: 05/16/2024 SERVICE TIME: 10:30AM Referred By: OT Reason for Referral: Anxiety / Coping Skills / Depressed Mood / Self-Expression / Motor Session Type: Initial COMMENTS: Consult received and appreciated. Pt sitting in bedside chair as underwriter introduced self and services. Pt shared anticipation of discharge today, pending blood pressure. Declined formal session but welcomed materials for independent use. Shared interest in formal session if admitted through the week. Provided desired materials and shared to follow pending availability. Denied further needs and expressed appreciation. Will follow up as able. SIGNATURE: Melissa Hayes Art Therapist PATIENT NAME: Harjit Solomon DATE: May 16, 2024 TIME: 12:13 PM PAGER/CONTACT #: [phone] Normal [facility] Brain/Head without Contrasto n 05-16-2024 Brain/Head without Contrast Normal [facility] CBC panel Auto (Bld)on 05-16 Erythrocyte distribution width (RBC) [Ratio] 13.9 % Normal 11.5-15.0 [facility] Comment on above: Order Comment: Speci men Type: BLOOD SPECIMENOrdering Facility: [facility] Address: [address] [place] [address] Performed By: #### 5 8410-2 ####[facility] LABIA [id number] [place] [address] [place] Hematocrit (Bld) [Volume fraction] 33.9 % Low 36.0-46.0 [facility] Comment on above: Order Comment: Speci men Type: BLOOD SPECIMENOrdering Facility: [facility] Address: [address] [place] [address] Performed By: #### 5 8410-2 ####[facility] LABCLIA [id number] [place] [id number] [place] Hemoglobin (Bld) [Mass/Vol] 10.7 g/dL Low 11.5-15.5 [facility] Comment on above: Order Comment: Speci men Type: BLOOD SPECIMENOrdering Facility: [facility] Address: [address] [place] [address] Performed By: #### 5 8410-2 ####[facility] LABIA [id number] [place] [address] [place] MCH (RBC) [Entitic mass] 28.5 pg Normal 26.0-34.0 [facility] Comment on above: Order Comment: Speci men Type: BLOOD SPECIMENOrdering Facility: [facility] Address: [address] [place] [address] Performed By: #### 5 8410-2 ####[facility] [id number] [place] [address] [place] MCHC (RBC) [Mass/Vol] 31.6 g/dL Normal 30.5-36.0 [facility] Comment on above: Order Comment: Speci men Type: BLOOD SPECIMENOrdering Facility: [facility] Address: [address] [place] [address] Performed By: #### 5 8410-2 ####[facility] [id number] [place] [address] [place] MCV (RBC) [Entitic vol] 90.4 fL Normal 80.0-100.0 [facility] Comment on above: Order Comment: Speci men Type: BLOOD SPECIMENOrdering Facility: [facility] Address: [address] [place] [address] Performed By: #### 5 8410-2 ####[facility] [id number] [place] [address] [place] Nucleated RBC (Bld) [#/Vol] 10*3/uL Normal <0.01 [facility] Comment on above: Order Comment: Speci men Type: BLOOD SPECIMENOrdering Facility: [facility] Address: [address] [place] [address] Performed By: #### 5 8410-2 ####[facility] [id number] [place] [address] [place] Platelet mean volume (Bld) [Entitic vol] 9.8 fL Normal 9.0-12.7 [facility] Comment on above: Order Comment: Speci men Type: BLOOD SPECIMENOrdering Facility: [facility] Address: [address] [place] [address] Performed By: #### 5 8410-2 ####[facility] LABCLIA [id number] [place] [address] [place] Platelets (Bld) [#/Vol] 333 10*3/uL Normal 150-400 [facility] Comment on above: Order Comment: Speci men Type: BLOOD SPECIMENOrdering Facility: [facility] Address: [address] [place] [address] Performed By: #### 5 8410-2 ####[facility] LABCLIA [id number] [place] [address] [place] RBC (Bld) [#/Vol] 3.75 10*6/uL Low 3.90-5.20 [facility] Comment on above: Order Comment: Speci men Type: BLOOD SPECIMENOrdering Facility: [facility] Address: [address] [place] [address] Performed By: #### 5 8410-2 ####[facility] LABIA [id number] [place] [address] [place] WBC (Bld) [#/Vol] 7.15 10*3/uL Normal 3.70-11.00 [facility] Comment on above: Order Comment: Speci men Type: BLOOD SPECIMENOrdering Facility: [facility] Address: [address] [place] [address] Performed By: #### 5 8410-2 ####[facility] LABIA [id number] [place] [address] [place] CNDSon 05-16-2024 CNDS HNO ID: [id number] Author: CARI WONG MD, PhD Service: Neurology Stroke Author Type: Physician Type: Discharge Summary Filed: 05/17/2024 21:16 Note Text: DISCHARGE SUMMARY NEURO STROKE PATIENT NAME: Harjit Solomon ADMISSION DATE: 05/11/2024 DISCHARGE DATE: 05/16/2024 Attending Physician: Cari Wong MD, * PCP: Bridget Swenson MD Code Status: Full Code Highest Readmission Risk Score: 13 The 30 day readmissions risk score is derived from an internally validated risk model which evaluates patient level characteristics, utilization history, medication orders and lab results up until the day of discharge. Patients with a score of 40 or above are considered highest risk for readmission. Specific patient level drivers will be listed at the bottom of the summary. Reason for Hospitalization: Subarachnoid hemorrhage Principal Problem: SAH (subarachnoid hemorrhage) (HCC) (POA: Yes) Active Problems: Essential (primary) hypertension (POA: Yes) NEL (obstructive sleep apnea) (POA: Yes) PAF (paroxysmal atrial fibrillation) (HCC) (POA: Yes) Intracranial hemorrhage (HCC) (POA: Yes) Current use of skilled nursing anticoagulation (POA: Yes) Restless leg syndrome (POA: Yes) Obesity, Class I, BMI 30-34.9 (POA: Unknown) Malnutrition of mild degree (HCC) (POA: Yes) Resolved Problems: * No resolved hospital problems. * Operations During Hospitalization: None Procedures During Hospitalization: MRI, TTE, MARIA ESTHER, EEG Initial NIHSS Score: 2 Stroke Mechanism: Stroke Risk Factors: Hypertension Atrial fibrillation Body Mass Index (BMI) BMI: 31.73 Total Cholesterol (at time of admission) No results found for this basename: chol:1 HDL (at time of admission) No results found for this basename: hdl:1 LDL (at time of admission) No results found for this basename: ldl:1 HbA1c No results found for: "HBA1C" Tests/Procedures Performed: 05/11/2024 CTA head/neck w/wo: Redemonstration of small volume acute subarachnoid blood products in the right precentral sulcus. Moderate focal stenosis of the origin of the right ICA up to 51% by NASCET criteria secondary to atherosclerotic disease. Moderate focal stenosis of the communicating segment of the right ICA secondary to calcified atherosclerotic plaque. Mild focal stenosis of the segment of the left ICA, secondary to calcified atherosclerotic plaque. Otherwise no other evidence of hemodynamically significant stenosis, intraluminal filling defect, abrupt vessel occlusion, aneurysm or vascular malformation in the intracranial and extracranial arterial vasculature. Consolidated opacities in the right lower lobe in a dependent distribution, which may represent aspiration/aspiratio n pneumonitis 05/12/2024: CT brain wo: Slightly increased volume of subarachnoid hemorrhage at the right perirolandic region. Addendum: Examination was discussed with the neurosurgery service as to whether the hemorrhage. The vertex could be parenchymal or subarachnoid. Subarachnoid hemorrhage is suspected given the apparent lack of edema within the adjacent cerebral parenchyma and the similar conformity of the hemorrhage to the mirrored sulcus on the left side. MRI could better help differentiate a parenchymal component to the hemorrhage and would more readily demonstrate subtle parenchymal edema that would suggest a parenchymal component. 05/13/2024 MRI brain w/wo: Similar appearance of small volume acute/subacute subarachnoid hemorrhage when compared to prior from CT brain on 05/12/2024, given differences in technique. Additional remote appearing blood products in the adjacent sulci. No acute intracranial abnormality otherwise. No abnormal intracranial enhancement or mass. Chronic white matter findings reflecting sequela of microvascular ischemia. 05/13/2024 US Transcranial doppler: The mean flow velocities within all of the insonated vessels are within normal limits and symmetric. Today's examination demonstrates no evidence of vasospasm by sonographic criteria. The pulsatility indices are elevated globally which may indicate an increase in intracranial pressure, distal vasospasm, or small vessel ischemic disease. 05/13/2023 TTE: - The left ventricle is normal in size. There is mild septal left ventricular hypertrophy. Left ventricular systolic function is normal. EF = 60 ? 5% (2D biplane) Normal left ventricular diastolic function. - The right ventricle is normal in size. Right ventricular systolic function is normal. - Mild MR 1+, no prolapse. Structurally normal valve. - Mild to moderate TR 1-2+. - Mild AI 1+. - Exam was compared with the prior echocardiographic exam performed on 02/03/2012. There is no significant change. 05/14/2024 MARIA ESTHER: - The left ventricle is normal in size. Left ventricular systolic function is normal. EF = 60 ? 5% (visual est.) - The right ventricle is normal in size. Right ventricul (more content not included)... Normal [facility] NURSING PROGon 05-16-2024 NURSING PROG HNO ID: [id number] Author: PEEWEE GAGNON, RN Service: Nursing Author Type: Registered Nurse Type: Nursing Progress Note Filed: 05/16/2024 03:14 Note Text: Pt c/o sporadic shaking in BLE. Has had issues w/ controlling her RLS the past 2 nights w this nurse, but states the sporadic shaking tonight is new. Notified on-call Neuro Stroke LIP. Asks this nurse if pt has tried Gabapentin before. Pt states that she has, and she was taken off of it because it caused muscle cramps. LIP states unable to prescribe anything else at this time and will address issue w/ the day team. This nurse edu pt of same and applies a warm blanket over her legs. Normal [facility] Renal function 2000 panelon 05-16-2024 Albumin [Mass/Vol] 3.6 g/dL Low 3.9-4.9 [facility] Comment on above: Order Comment: Speci men Type: BLOOD SPECIMENOrdering Facility: [facility] Address: [address] [place] [address] Performed By: #### 2 4362-6 ####[facility] LABIA [id number] [place] [address] [place] Anion gap [Moles/Vol] 12 mmol/L Normal 8-15 [facility] Comment on above: Order Comment: Speci men Type: BLOOD SPECIMENOrdering Facility: [facility] Address: [address] [place] [address] Performed By: #### 2 4362-6 ####[facility] LABCLIA [id number] [place] [address] [place] Calcium [Mass/Vol] 8.9 mg/dL Normal 8.5-10.2 [facility] Comment on above: Order Comment: Speci men Type: BLOOD SPECIMENOrdering Facility: [facility] Address: [address] [place] [address] Performed By: #### 2 4362-6 ####[facility] LABCLIA [id number] [place] [address] [place] Chloride [Moles/Vol] 102 mmol/L Normal 98-107 [facility] Comment on above: Order Comment: Speci men Type: BLOOD SPECIMENOrdering Facility: [facility] Address: [address] [place] [address] Performed By: #### 2 4362-6 ####[facility] LABCLIA [id number] [place] [address] [place] CO2 [Moles/Vol] 24 mmol/L Normal 22-30 [facility] Comment on above: Order Comment: Speci men Type: BLOOD SPECIMENOrdering Facility: [facility] Address: [address] [place] [address] Performed By: #### 2 4362-6 ####[facility] LABCLIA [id number] [place] [address] [place] Creatinine [Mass/Vol] 0.87 mg/dL Normal 0.58-0.96 [facility] Comment on above: Order Comment: Speci men Type: BLOOD SPECIMENOrdering Facility: [facility] Address: [address] [place] [address] Performed By: #### 2 4362-6 ####[facility] LABCLIA [id number] [address] OF [facility] Creatinine and Glomerular filtration rate.predicted panel (S/P/Bld) 64 mL/min/1.73m??? Normal >=60 [facility] Comment on above: Order Comment: Speci men Type: BLOOD SPECIMENOrdering Facility: [facility] Address: [address] [place] [address] Result Comment: Michael mated Glomerular Filtration Rate (eGFR) is calculated using the 2020 CKD-EPI creatinine equation. This equation utilizes serum creatinine, sex, and age as parameters. The creatinine assay has traceable calibration to isotope dilution-mass spectrometry. Refer to KDIGO guidelines for clinical interpretation. In patients with unstable renal function, e.g. those with acute kidney injury, the eGFR may not accurately reflect actual GFR. Performed By: #### 2 4362-6 ####[facility] LABIA [id number] [place] [address] [place] Glucose [Mass/Vol] 95 mg/dL Normal 74-99 [facility] Comment on above: Order Comment: Speci men Type: BLOOD SPECIMENOrdering Facility: [facility] Address: [address] [place] [address] Result Comment: The [place] Diabetes Association (ADA) provides guidance for cutoff values for fasting glucose and random glucose. The ADA defines fasting as no caloric intake for at least 8 hours. Fasting plasma glucose results between 100 to 125 mg/dL indicate increased risk for diabetes (prediabetes). Fasting plasma glucose results greater than or equal to 126 mg/dL meet the criteria for diagnosis of diabetes. In the absence of unequivocal hyperglycemia, results should be confirmed by repeat testing. In a patient with classic symptoms of hyperglycemia or hyperglycemic crisis, random plasma glucose results greater than or equal to 200 mg/dL meet the criteria for diagnosis of diabetes. Reference: Standards of Medical Care in Diabetes 2016, [place] [employer] Association. Diabetes Care. 2016.39(Suppl 1). Performed By: #### 2 4362-6 ####[facility] LABIA [id number] [place] [address] [place] Phosphate [Mass/Vol] 2.7 mg/dL Normal 2.7-4.8 [facility] Comment on above: Order Comment: Speci men Type: BLOOD SPECIMENOrdering Facility: [facility] Address: [address] [place] [address] Performed By: #### 2 4362-6 ####[facility] LABIA [id number] [place] [address] [place] Potassium [Moles/Vol] 4.4 mmol/L Normal 3.7-5.1 [facility] Comment on above: Order Comment: Speci men Type: BLOOD SPECIMENOrdering Facility: [facility] Address: [address] [place] [address] Performed By: #### 2 4362-6 ####[facility] LABCLIA [id number] [place] [address] [place] Sodium [Moles/Vol] 138 mmol/L Normal 136-144 [facility] Comment on above: Order Comment: Speci men Type: BLOOD SPECIMENOrdering Facility: [facility] Address: [address] [place] [address] Performed By: #### 2 4362-6 ####[facility] LABCLIA [id number] [place] [address] [place] Urea nitrogen [Mass/Vol] 27 mg/dL High 7-21 [facility] Comment on above: Order Comment: Speci men Type: BLOOD SPECIMENOrdering Facility: [facility] Address: [address] [place] [address] Performed By: #### 2 4362-6 ####[facility] LABCLIA [id number] [place] [address] [place] CBC panel Auto (Bld)on 05-15 Erythrocyte distribution width (RBC) [Ratio] 14.1 % Normal 11.5-15.0 [facility] Comment on above: Order Comment: Speci men Type: BLOOD SPECIMENOrdering Facility: [facility] Address: [address] [place] [address] Performed By: #### 5 8410-2 ####[facility] LABCLIA [id number] [place] [address] [place] Hematocrit (Bld) [Volume fraction] 33.7 % Low 36.0-46.0 [facility] Comment on above: Order Comment: Speci men Type: BLOOD SPECIMENOrdering Facility: [facility] Address: [address] [place] [address] Performed By: #### 5 8410-2 ####[facility] LABCLIA [id number] [place] [address] [place] Hemoglobin (Bld) [Mass/Vol] 10.8 g/dL Low 11.5-15.5 [facility] Comment on above: Order Comment: Speci men Type: BLOOD SPECIMENOrdering Facility: [facility] Address: [address] [place] [address] Performed By: #### 5 8410-2 ####[facility] LABIA [id number] [place] [address] [place] MCH (RBC) [Entitic mass] 29.0 pg Normal 26.0-34.0 [facility] Comment on above: Order Comment: Speci men Type: BLOOD SPECIMENOrdering Facility: [facility] Address: [address] [place] [address] Performed By: #### 5 8410-2 ####[facility] LABIA [id number] [place] [address] [place] MCHC (RBC) [Mass/Vol] 32.0 g/dL Normal 30.5-36.0 [facility] Comment on above: Order Comment: Speci men Type: BLOOD SPECIMENOrdering Facility: [facility] Address: [address] [place] [address] Performed By: #### 5 8410-2 ####[facility] LABIA [id number] [place] [address] [place] MCV (RBC) [Entitic vol] 90.3 fL Normal 80.0-100.0 C [facility] Comment on above: Order Comment: Speci men Type: BLOOD SPECIMENOrdering Facility: [facility] Address: [address] [place] [address] Performed By: #### 5 8410-2 ####[facility] LABIA [id number] [place] [address] [place] Nucleated RBC (Bld) [#/Vol] 10*3/uL Normal <0.01 [facility] Comment on above: Order Comment: Speci men Type: BLOOD SPECIMENOrdering Facility: [facility] Address: [address] [place] [address] Performed By: #### 5 8410-2 ####[facility] LABCLIA [id number] [place] [address] [place] Platelet mean volume (Bld) [Entitic vol] 9.5 fL Normal 9.0-12.7 [facility] Comment on above: Order Comment: Speci men Type: BLOOD SPECIMENOrdering Facility: [facility] Address: [address] [place] [address] Performed By: #### 5 8410-2 ####[facility] LABIA [id number] [place] [address] [place] Platelets (Bld) [#/Vol] 342 10*3/uL Normal 150-400 [facility] Comment on above: Order Comment: Speci men Type: BLOOD SPECIMENOrdering Facility: [facility] Address: [address] [place] [address] Performed By: #### 5 8410-2 ####[facility] LABIA [id number] [place] [address] [place] RBC (Bld) [#/Vol] 3.73 10*6/uL Low 3.90-5.20 [facility] Comment on above: Order Comment: Speci men Type: BLOOD SPECIMENOrdering Facility: [facility] Address: [address] [place] [address] Performed By: #### 5 8410-2 ####[facility] LABCLIA [id number] [place] [address] [place] WBC (Bld) [#/Vol] 8.17 10*3/uL Normal 3.70-11.00 [facility] Comment on above: Order Comment: Speci men Type: BLOOD SPECIMENOrdering Facility: [facility] Address: [address] [place] [address] Performed By: #### 5 8410-2 ####[facility] LABCLIA [id number] [place] [address] [place] Renal function 2000 panelon 05-15-2024 Albumin [Mass/Vol] 3.4 g/dL Low 3.9-4.9 [facility] Comment on above: Order Comment: Speci men Type: BLOOD SPECIMENOrdering Facility: [facility] Address: [address] [place] [address] Performed By: #### 2 4362-6 ####[facility] LABCLIA [id number] [place] [address] [place] Anion gap [Moles/Vol] 12 mmol/L Normal 8-15 [facility] Comment on above: Order Comment: Speci men Type: BLOOD SPECIMENOrdering Facility: [facility] Address: [address] [place] [address] Performed By: #### 2 4362-6 ####[facility] LABCLIA [id number] [place] [address] [place] Calcium [Mass/Vol] 8.6 mg/dL Normal 8.5-10.2 [facility] Comment on above: Order Comment: Speci men Type: BLOOD SPECIMENOrdering Facility: [facility] Address: [address] [place] [address] Performed By: #### 2 4362-6 ####[facility] LABCLIA [id number] [place] [address] [place] Chloride [Moles/Vol] 100 mmol/L Normal 98-107 [facility] Comment on above: Order Comment: Speci men Type: BLOOD SPECIMENOrdering Facility: [facility] Address: [address] [place] [address] Performed By: #### 2 4362-6 ####[facility] LABCLIA [id number] [place] [id number] [place] CO2 [Moles/Vol] 23 mmol/L Normal 22-30 [facility] Comment on above: Order Comment: Speci men Type: BLOOD SPECIMENOrdering Facility: [facility] Address: [address] [place] [address] Performed By: #### 2 4362-6 ####[facility] LABCLIA [id number] [place] [address] [place] Creatinine [Mass/Vol] 0.76 mg/dL Normal 0.58-0.96 [facility] Comment on above: Order Comment: Speci men Type: BLOOD SPECIMENOrdering Facility: [facility] Address: [address] [place] [address] Performed By: #### 2 4362-6 ####[facility] LABCLIA [id number] [place] [address] [place] Creatinine and Glomerular filtration rate.predicted panel (S/P/Bld) 75 mL/min/1.73m??? Normal >=60 [facility] Comment on above: Order Comment: Speci men Type: BLOOD SPECIMENOrdering Facility: [facility] Address: [address] [place] [address] Result Comment: Michael mated Glomerular Filtration Rate (eGFR) is calculated using the 2020 CKD-EPI creatinine equation. This equation utilizes serum creatinine, sex, and age as parameters. The creatinine assay has traceable calibration to isotope dilution-mass spectrometry. Refer to KDIGO guidelines for clinical interpretation. In patients with unstable renal function, e.g. those with acute kidney injury, the eGFR may not accurately reflect actual GFR. Performed By: #### 2 4362-6 ####[facility] LABIA [id number] [place] [address] [place] Glucose [Mass/Vol] 90 mg/dL Normal 74-99 [facility] Comment on above: Order Comment: Speci men Type: BLOOD SPECIMENOrdering Facility: [facility] Address: [address] [place] [address] Result Comment: The [place] Diabetes Association (ADA) provides guidance for cutoff values for fasting glucose and random glucose. The ADA defines fasting as no caloric intake for at least 8 hours. Fasting plasma glucose results between 100 to 125 mg/dL indicate increased risk for diabetes (prediabetes). Fasting plasma glucose results greater than or equal to 126 mg/dL meet the criteria for diagnosis of diabetes. In the absence of unequivocal hyperglycemia, results should be confirmed by repeat testing. In a patient with classic symptoms of hyperglycemia or hyperglycemic crisis, random plasma glucose results greater than or equal to 200 mg/dL meet the criteria for diagnosis of diabetes. Reference: Standards of Medical Care in Diabetes 2016, [place] [employer] Association. Diabetes Care. 2016.39(Suppl 1). Performed By: #### 2 4362-6 ####[facility] LABCLIA [id number] [place] [address] [place] Phosphate [Mass/Vol] 2.4 mg/dL Low 2.7-4.8 [facility] Comment on above: Order Comment: Speci men Type: BLOOD SPECIMENOrdering Facility: [facility] Address: [address] [place] [address] Performed By: #### 2 4362-6 ####[facility] LABIA [id number] [place] [address] [place] Potassium [Moles/Vol] 4.1 mmol/L Normal 3.7-5.1 [facility] Comment on above: Order Comment: Speci men Type: BLOOD SPECIMENOrdering Facility: [facility] Address: [address] [place] [address] Performed By: #### 2 4362-6 ####[facility] LABCLIA [id number] [place] [address] [place] Sodium [Moles/Vol] 135 mmol/L Low 136-144 [facility] Comment on above: Order Comment: Speci men Type: BLOOD SPECIMENOrdering Facility: [facility] Address: [address] [place] [address] Performed By: #### 2 4362-6 ####[facility] LABCLIA [id number] [place] [id number] [place] Urea nitrogen [Mass/Vol] 20 mg/dL Normal 7-21 [facility] Comment on above: Order Comment: Speci men Type: BLOOD SPECIMENOrdering Facility: [facility] Address: [address] [place] [address] Performed By: #### 2 4362-6 ####[facility] LABCLIA [id number] [place] [id number] [place] ALLIED HEALTHon 05-14-2024 ALLIED HEALTH HNO ID: [id number] Author: YVONNE VICTOR Chaplain Student Service: Spiritual Care Author Type: Student Type: Allied Health Filed: 05/14/2024 13:17 Note Text: SPIRITUAL CARE ASSESSMENT SERVICE DATE: 05/14/2024 SERVICE TIME: 12:30 Visit with: Patient Length of visit (minutes): 30 [facility] / Spirituality: Samina Reason: Referral from: Other Health Care Worker: OT/PT Purpose of Referral (if stated): Emotional Support ASSESSMENT Emotional Disposition: Hopeful, Nervous, and Sadness Relational Concerns: Struggling with Autonomy Spiritual Concerns: Struggling with transition or change INTERVENTIONS Empowerment: Encouraged adherence to treatment plan, Encouraged focus on present, Encouraged self-care, and Informed patient of spiritual care resources available Exploration: Explored hope, Explored relational needs and resources, Explored spiritual needs and resources, and Facilitated story telling Relationship Building: Provided hospitality and Provided silent and supportive presence Ritual: Provided prayer and Read sacred text OUTCOMES Unknown outcome PLAN Follow-up not needed COMMENTS: Chaplain Abrams responded to consult from OT/PT for Ms. Solomon. She has recently returned from a procedure however, is feeling well enough to engage in conversation. Ms. Solomon is concerned about how long it will take to regain her health and in turn her independence. She has a good family support system. Ms. Solomon shared the story about her family and is anxious to return to being "[place]" to her great grandchildren. Ms. Solomon would like a bible to use while she is her. We prayed together and I will return with a bible for her. SIGNATURE: Chaplain Mega Student PATIENT NAME: Harjit Solomon DATE: May 14, 2024 TIME: 1:11 PM PAGER/CONTACT #: [phone] Normal [facility] ALLIED HEALTH HNO ID: [id number] Author: YVONNE VICTOR Chaplain Student Service: Spiritual Care Author Type: Student Type: Allied Health Filed: 05/14/2024 12:07 Note Text: SPIRITUALCARE Spiritual Care Visit- Brief Note Name: Harjit Solomon Date: May 14, 2024 Notes: Chaplain Abrams responded to consult from OT/PT. Ms. Solomon is sitting up in chair and expresses that she would like a New Testament. Nursing team is preparing Ms. Solomon for procedure off the floor, so she is not available for spiritual care at this time. Chaplain Abrams provided consult and status update to Chaplain Stroud to follow up later today. _ SIGNATURE: Chaplain Jesus Ayoub PATIENT NAME: Harjit Solomon DATE: May 14, 2024 TIME: 12:04 PM This is an electronically created document. IF PRINTED, PLEASE DO NOT REMOVE FROM THE CHART OR MODIFY PRINTED COPY. Normal [facility] CASE MANAGEMon 05-14-2024 CASE MANAGEM HNO ID: [id number] Author: ?, ?, ? Service: ? Author Type: ? Type: Care Mgt Progress Note Filed: 05/14/2024 16:27 Note Text: CARE MANAGEMENT PROGRESS NOTE SERVICE DATE: 05/14/2024 SERVICE TIME: 4:27 PM LOS: 3 days Discharge packet completed and dropped off by expanded duty dental assistant Topher White. Packet is missing AVS/DC forms, please reach out to watch case polisher with any discharge related questions. SIGNATURE: Topher White PATIENT NAME: Harjit Solomon DATE: May 14, 2024 TIME: 4:27 PM [facility] CASE MGT INIT ASSESon 2024 CASE MGT INIT ASSES HNO ID: [id number] Author: CYNTHIA ORLANDO RN Service: ? Author Type: Registered Nurse Type: Care Mgt Initial Assessment Filed: 05/14/2024 17:16 Note Text: CARE MANAGEMENT: ASSESSMENT AND DISCHARGE PLAN SERVICE DATE: May 14, 2024 SERVICE TIME: 11:31 AM PCP: Bridget Swenson MD Primary Contact: Extended Emergency Contact Information Primary Emergency Contact: Martha Hdz Mobile Relation: Daughter Secondary Emergency Contact: Rogelio Gotti Mobile Relation: Grandchild Admission Status: Inpatient Insurance Provider: MEDICARE A AND B Discharge Planning requested by: Per Department Practice Potential [facility] Advance Directives Current Advance Directive: Living Will;Health Care Power of Production Analyst In Chart: No Materials Planning Analyst Attempted to Assist with AD Completion: Yes Action: Other: See Comment (Requested copies be brought in to be uploaded to medical record) Current Living Arrangements and Support Lives with: Alone Type of Residence: Private Residence (Apartment or Condo) Does the patient have to climb stairs at home?: Yes;stairs outside the home Support: Children How do you manage to accomplish the following: Independent: Bathe/Shower;Dress;M eals/Meal Prep;Going to the bathroom;Medication Management Needs Assistance: Ambulation Dependent: Transportation to appointments/communi ty (Family provides transportation) Current Services/Equipment Current Post-Acute Service(s): DME Current DME Type: Elevated toilet seat, Grab bars, Bi-level Positive Airway Pressure, Rollator Scooter, None (Transport chair) Discharge Planning Patient Goal(s): Other: See Comment Patient's Other Post-Acute Care Goal(s): Get Better [place] Explained: [place] Given: Yes Level of Care Discussed: [facility]itentiary Facility Are you interested in bedside delivery of your medications? No Discharge Planning Participant(s): Patient;Children Patient/Family Comments: Caregiver Assessment: Caregiver is ready, willing and able to meet the patient's needs as recommended by the inter-professional team: No Caregiver needed Transport at Discharge: Transportation Arrangements: Ambulance Needs Prior to Discharge: Needs Prior to Discharge: Accepting Facility;Bed Availability;Dischar ge Transportation Post-Acute Discharge Plan: Per Medical Record: 89 yo F w/ PMH HTN, HLD, pAF on warfarin, NEL on CPAP, osteoporosis, secondary hypothyroidism transferred from [place] ED May 11, 2024 for ICH monitoring. CTH at OSH showed cortical SAH appearing along R precentral gyrus. SBP >200 on arrival to ED, started on nicardipine and transferred to NICU for continuation of care. LKW 05/11 this AM (unclear the time). This morning, patient developed transient weakness and numbness of the right upper extremity that resolved after seconds. Not associated w/ any headache, vision changes, weakness elsewhere. Lifetime non-smoker, denies any alcohol use or illicit drug use. Adherent to all of her home medications. Presented to ED where CTH demonstrated right frontal ICH/possible associated SAH. INR 2.0, reversed with [facility]. Transferred to NICU for further management. Met with patient at bedside, introduced myself and the role of CM. Patient reports that she lives alone in a condo with stairs entering the home from the garage. 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 Uses a walker to assist with ambulation. No prior oxygen. Uses a Bipap at night. Retired, manages own medications, does not drive. Family provides transportation. No financial concerns per patient. MARIA ESTHER planned for today. Skilled for SNF. Discussed with patient, and she requested referrals be sent to: [facility] in [place] and [facility] SNF. [facility] tasked to build and send referral. Await response. Medically ready for discharge tomorrow. Will need; accepting facility and transport arranged. No precert required. CM will follow. Update 5pm: patient has been accepted by [facility] for their rehab program. Both patient and medical team are in agreement. A bed will be available on Friday, 05/16. S transport set for 05/16/2024 at 2pm, trip #[id number] DC packet completed by [facility]'s and placed with patient's green chart. Nurse report number is [phone]. Patient updated on transport time for Friday. SIGNATURE: Cynthia Orlando RN PATIENT NAME: Harjit Solomon DATE: May 14, 2024 TIME: 11:31 AM Normal [facility] CBC panel Auto (Bld)on 05-14 Erythrocyte distribution width (RBC) [Ratio] 14.5 % Normal 11.5-15.0 [facility] Comment on above: Order Comment: Speci men Type: BLOOD SPECIMENOrdering Facility: [facility] Address: [address] [place] [address] Performed By: #### 5 8410-2 ####[facility] LABIA [id number] [place] [address] [place] Hematocrit (Bld) [Volume fraction] 33.7 % Low 36.0-46.0 [facility] Comment on above: Order Comment: Speci men Type: BLOOD SPECIMENOrdering Facility: [facility] Address: [address] [place] [address] Performed By: #### 5 8410-2 ####[facility] LABIA [id number] [place] [address] [place] Hemoglobin (Bld) [Mass/Vol] 10.5 g/dL Low 11.5-15.5 [facility] Comment on above: Order Comment: Speci men Type: BLOOD SPECIMENOrdering Facility: [facility] Address: [address] [place] [address] Performed By: #### 5 8410-2 ####[facility] LABIA [id number] [place] [address] [place] MCH (RBC) [Entitic mass] 28.8 pg Normal 26.0-34.0 [facility] Comment on above: Order Comment: Speci men Type: BLOOD SPECIMENOrdering Facility: [facility] Address: [address] [place] [address] Performed By: #### 5 8410-2 ####[facility] LABIA [id number] [place] [address] [place] MCHC (RBC) [Mass/Vol] 31.2 g/dL Normal 30.5-36.0 [facility] Comment on above: Order Comment: Speci men Type: BLOOD SPECIMENOrdering Facility: [facility] Address: [address] [place] [address] Performed By: #### 5 8410-2 ####[facility] LABCLIA [id number] [place] [address] [place] MCV (RBC) [Entitic vol] 92.6 fL Normal 80.0-100.0 C [facility] Comment on above: Order Comment: Speci men Type: BLOOD SPECIMENOrdering Facility: [facility] Address: [address] [place] [address] Performed By: #### 5 8410-2 ####[facility] LABIA [id number] [place] [address] [place] Nucleated RBC (Bld) [#/Vol] 10*3/uL Normal <0.01 [facility] Comment on above: Order Comment: Speci men Type: BLOOD SPECIMENOrdering Facility: [facility] Address: [address] [place] [address] Performed By: #### 5 8410-2 ####[facility] LABIA [id number] [place] [address] [place] Platelet mean volume (Bld) [Entitic vol] 9.3 fL Normal 9.0-12.7 [facility] Comment on above: Order Comment: Speci men Type: BLOOD SPECIMENOrdering Facility: [facility] Address: [address] [place] [address] Performed By: #### 5 8410-2 ####[facility] LABIA [id number] [place] [address] [place] Platelets (Bld) [#/Vol] 336 10*3/uL Normal 150-400 [facility] Comment on above: Order Comment: Speci men Type: BLOOD SPECIMENOrdering Facility: [facility] Address: [address] [place] [address] Performed By: #### 5 8410-2 ####[facility] LABIA [id number] [place] [address] [place] RBC (Bld) [#/Vol] 3.64 10*6/uL Low 3.90-5.20 [facility] Comment on above: Order Comment: Speci men Type: BLOOD SPECIMENOrdering Facility: [facility] Address: [address] [place] [address] Performed By: #### 5 8410-2 ####[facility] LABCLIA [id number] [place] [address] [place] WBC (Bld) [#/Vol] 6.22 10*3/uL Normal 3.70-11.00 [facility] Comment on above: Order Comment: Speci men Type: BLOOD SPECIMENOrdering Facility: [facility] Address: [address] [place] [address] Performed By: #### 5 8410-2 ####[facility] LABCLIA [id number] [address] [place] CNOVon 05-14-2024 CNOV Office Visit (CAFLMN) Harjit SOLOMON ([id number]) 1935 F Date Time Provider Department 05/14/24 4:00 PM IP TRANSESOPHAGEAL ECHO CAFLMN During your visit today, we recorded the following information about you: Temperature Pulse Respiration Blood pressure 97.4 degrees 60/minute 33/minute 157/71 Damari Wiggins, RN 05/14/2024 12:24 PM Signed AMBULATORY PATIENT EDUCATION TOPIC: MARIA ESTHER READINESS TO LEARN COGNITIVE ABILITY: Alert and oriented MOTIVATION TO LEARN: Eager FAMILY SUPPORT: Unable to assess - Family not present INSTRUCTION PROVIDED TO: Patient PATIENT LEARNS BEST BY: Individual Instruction Verbal Instruction FACTORS AFFECTING LEARNING: None PHYSICAL LIMITATIONS AFFECTING LEARNING: None LEARNING RESPONSE DIAGNOSIS: R/O endocaritis METHOD OF INSTRUCTION: Individual instruction Verbal instruction PATIENT / FAMILY RESPONSE: Verbalizes understanding of: POST-PROCEDURE INSTRUCTIONS-Correct actions to take to reduce post procedure complications PRE-PROCEDURE INSTRUCTIONS-Correct action to take to follow pre-procedure instructions FOLLOW-UP PLAN: Complete - No need for follow-up SUPPLEMENTAL MATERIAL: Post MARIA ESTHER instructions given Post sedation instructions given REFERRAL (RECOMMENDATION): None Electronically Signed By Damari Wiggins RN In Department: CARDIOLOGY Allergies As of Date: 05/14/2024 Noted Allergy Reaction SUTURES 11/26/2012 9 - Itching ACTONEL (RISEDRONATE SODIUM) 11/06/2007 8 - GI Upset Comments: States had GI bleed ADHES. [id number] UM 12/09/2007 BEETS 05/28/2011 2 - Rash Comments: raised injection site when allergy tested [place] 12/08/2006 4 - Hives EGGPLANT 12/08/2006 4 - Hives FOSAMAX (ALENDRONATE SODIUM) 11/06/2007 8 - GI Upset Comments: States had GI bleed MOBIC (MELOXICAM) 04/16/2011 14 - Other: See Comments Comments: Edema, HTN MOLD 02/22/2004 4 - Hives NEURONTIN (GABAPENTIN) 03/29/2011 14 - Other: See Comments Comments: muscle spasms PENICILLINS 02/22/2004 PORK 03/26/2011 5 - Intolerance WHEAT GLUTEN 12/08/2006 4 - Hives YEAST, DRIED 03/24/2012 4 - Hives Date Reviewed: 05/14/2024 Reviewed by: Damari Wiggins RN - Fully Assessed Primary Visit Diagnosis:Essential (primary) hypertension [I10] Order(s):[] benzocaine 20% (TOPEX)Disp: Rfl: [] lidocaine urojet 2 % topical gel (GLYDO)Disp: Rfl: [] fentaNYL 50 mcg/mL injection (SUBLIMAZE)Disp: Rfl: [] midazolam (PF) injection (VERSED)Disp: Rfl: Prescriptions as of 05/14/2024 - magnesium oxide (MAG-OX) 400 mg (241.3 mg magnesium) tablet Take 400 mg by mouth once daily. - HYDROcodone-Acetamin ophen (NORCO) 7.5-325 mg per tablet Take 1 tablet by mouth four times a day as needed for pain. - rOPINIRole (REQUIP) 1 mg tablet Take 0.5 mg by mouth two times a day. In the evening and at bedtime - losartan (COZAAR) 100 mg tablet Take 1 tablet by mouth once daily. - warfarin (COUMADIN) 3 mg tablet Take 3 mg by mouth daily as directed. - aspirin, enteric coated (ASPIRIN, ENTERIC COATED) 81 mg EC tablet Take 81 mg by mouth once daily. - atenolol (TENORMIN) 25 mg tablet Take 25 mg by mouth once daily. Facility-Administere d Medications as of 05/14/2024 - lidocaine 4 % 1 Patch (SALONPAS) - lidocaine patch - REMOVE - lidocaine - VERIFY PATCH - losartan 25 mg tab(s) (COZAAR) - heparin 5,000 Units injection - atenolol 25 mg tab(s) (TENORMIN) - hydrALAZINE 10 mg injection (APRESOLINE) - polyethylene glycol 3350 17 g packet - sodium chloride 0.9 % (flush) 2-10 mL (BD POSIFLUSH) - perflutren lipid microspheres 1.1 mg/mL 1.3 mL injection (DEFINITY) - NaCl 0.9% iv flush bag - acetaminophen 650 mg tab(s) (TYLENOL) - senna-docusate 8.6-50 mg 1 tablet (SENNA-S) - ondansetron (PF) 4 mg injection (ZOFRAN) - hydrOXYzine pamoate 25 mg cap(s) (VISTARIL) - rOPINIRole 3 mg tab(s) (REQUIP) Problem List As Of Date 05/14/2024 Noted Resolved OSTEOPOROSIS NOS [M81.0] 01/30/2005 Essential (primary) hypertension [I10] 03/04/2005 HYPERLIPIDEMIA NEC/NOS [E78.5] 03/04/2005 MULTINODULAR GOITER (NONTOXIC) [E04.2] 03/04/2005 Adjustment disorder with depressed mood [F43.21]03/04/2005 02/19/2012 Insomnia, unspecified [G47.00] 02/11/2007 02/19/2012 NIGHTMARE [SER1512] 02/11/2007 04/12/2014 LUMBAR RADICULITIS [OBD9471] 02/11/2007 BACKACHE NOS [M54.9] 02/17/2007 MITRAL INSUFFICIENCY [I05.9] 12/09/2007 Incidental lung nodule, > 3mm and < 8mm [R91.1] 12/24/2010 Lumbago [M54.50] 12/27/2010 Sacral insufficiency fracture [M84.48XA] 03/29/2011 NEL (obstructive sleep apnea) [G47.33] 10/16/2011 Personal history of colonic polyps [Z86.0100] 12/31/2011 Other symptoms involving digestive system [R19.*12/31/2011 Abdominal pain, unspecified site [R10.9] 12/31/2011 Mitral valve prolapse [I34.1] Hypertension [I10] Depression [F32.A] 04/12/2014 Hyperparathyroidism [E21.3] 05/12 (more content not included)... Normal [facility] ECHO TRANSESOPHAGEALon 05-14 ECHO TRANSESOPHAGEAL Echocardiography Report: Transesophageal Echo [facility] J1-5 Date of service: 05/14/2024 11:28:35 AM AND [employer]ER Ordering physician: CARI WONG Indication: ?Endocarditis Technologist: fellow Fellow: Sami Johnson MD Interpreting physician: Lyle Ferro MD PATIENT: Name: MS. Harjit SOLOMON : 1935 Age: 89 years Gender: F Pre Post Heart rate 64 bpm 62 bpm Blood pressure 205/90 mmHg 187/77 mmHg O2 saturation 100 % 100 % Color Doppler was utilized to interrogate the cardiac valves assessed and spectral Doppler was utilized to determine the flow velocities and pressure gradients reported in this exam. Medications Total Dose Versed 3.00 mg Fentanyl 75.00 mcg Exam performed under moderate sedation with continuous ECG, pulse oximetry and cardiopulmonary monitoring by nursing, overseen by the performing physician(s), for an intraservice time of 10 min. (Stop Time: 1204) No specimens collected. No blood loss. The interpreting physician was present for and actively participated in the MARIA ESTHER procedure. MEASUREMENTS: Value Normal Max aortic dimension 3.3 cm Ao < 3.8 Ejection Fraction 60 % (visual est.) EF > 54 FINDINGS: LEFT VENTRICLE The left ventricle is normal in size. Left ventricular systolic function is normal. 3D data was obtained and analyzed to provide quantitative left ventricle measurements and assist with ventricular assessment. RIGHT VENTRICLE The right ventricle is normal in size. Right ventricular systolic function is normal. LEFT ATRIUM The left atrial cavity is normal in size. The left atrial appendage is not multilobed. There is no left atrial appendage thrombus. Pulmonary Veins: The pulmonary venous pattern showed normal systolic flow. RIGHT ATRIUM The right atrial cavity is normal in size. MITRAL VALVE There is mild (1+ - 2+) mitral valve regurgitation. There is mild thickening. 3D echocardiographic multi-planar reconstruction of the mitral valve was performed to assess anatomy and function. TRICUSPID VALVE There is mild (1+) tricuspid valve regurgitation. There is mild thickening. 3D echocardiographic multi-planar reconstruction of the tricuspid valve was performed to assess anatomy and function. AORTIC VALVE There is mild (1+) aortic valve regurgitation. There is mild thickening. 3D echocardiographic multi-planar reconstruction of the aortic valve was performed to assess anatomy and function. PULMONIC VALVE The pulmonic valve cusps are structurally normal. There is trace pulmonic valve regurgitation. AORTA The visualized aorta is normal in size. Measurements - Sinus: 3.0 cm. Mid ascending aorta 3.3 cm. There is mild localized atheroma in the mid descending thoracic, proximal descending isthmus, mid arch and distal ascending aorta. INTERATRIAL SEPTUM The interatrial septum is normal. There is no patent foramen ovale as detected by Doppler and agitated saline contrast. PERICARDIUM There is no pericardial effusion. CONCLUSIONS: - Exam indication: ?Endocarditis - The left ventricle is normal in size. Left ventricular systolic function is normal. EF = 60 5% (visual est.) - The right ventricle is normal in size. Right ventricular systolic function is normal. - There is no patent foramen ovale as detected by Doppler and agitated saline contrast. - Mild MR, TR and AR. No definitive evidence of endocarditis on this study, - The patient has not had a prior CC transesophageal echocardiographic exam for comparison. * * * Final * * * [facility] [employer] [facility] : [id number] Normal [facility] NURSING PROGon 05-14-2024 NURSING PROG HNO ID: [id number] Author: DAMARI WIGGINS RN Service: ? Author Type: Registered Nurse Type: Nursing Progress Note Filed: 05/14/2024 12:24 Note Text: AMBULATORY PATIENT EDUCATION TOPIC: MARIA ESTHER READINESS TO LEARN COGNITIVE ABILITY: Alert and oriented MOTIVATION TO LEARN: Eager FAMILY SUPPORT: Unable to assess - Family not present INSTRUCTION PROVIDED TO: Patient PATIENT LEARNS BEST BY: Individual Instruction Verbal Instruction FACTORS AFFECTING LEARNING: None PHYSICAL LIMITATIONS AFFECTING LEARNING: None LEARNING RESPONSE DIAGNOSIS: R/O endocaritis METHOD OF INSTRUCTION: Individual instruction Verbal instruction PATIENT / FAMILY RESPONSE: Verbalizes understanding of: POST-PROCEDURE INSTRUCTIONS-Correct actions to take to reduce post procedure complications PRE-PROCEDURE INSTRUCTIONS-Correct action to take to follow pre-procedure instructions FOLLOW-UP PLAN: Complete - No need for follow-up SUPPLEMENTAL MATERIAL: Post MARIA ESTHER instructions given Post sedation instructions given REFERRAL (RECOMMENDATION): None Electronically Signed By Damari Wiggins RN In Department: CARDIOLOGY Normal [facility] NURSING PROG HNO ID: [id number] Author: ALBERTO SANTANA RN Service: ? Author Type: Registered Nurse Type: Nursing Progress Note Filed: 05/14/2024 08:52 Note Text: Transfer Note: PATIENT NAME: Harjit Solomon Patient Location: [place] [address] Room: [place] [address] Patient transferred into room/unit 0- in stable condition. Actions taken: No futher actions taken at this time. Will continue to monitor and check with patient. Normal [facility] PT panel Coag (PPP)on 2024 INR Coag (PPP) [Relative time] 1.0 {INR} Normal 0.9-1.3 [facility] Comment on above: Order Comment: Speci men Type: BLOOD SPECIMENOrdering Facility: [facility] Address: [address] [place] [address] Result Comment: Nathalie min K Antagonist (VKA) Therapeutic Range: INR 2 to 3 (Target INR of 2.5) Note: For patients treated with VKA drugs, such as warfarin, the [place] [employer] 2012 Guideline recommends a therapeutic INR range of 2 to 3 (target INR of 2.5). This recommendation includes high-risk patients with antiphospholipid syndrome with previous arterial or venous thromboembolism, current-generation mechanical or bioprosthetic aortic heart valve replacement. Note: Patients with mechanical aortic valve replacement and additional risk factors for thromboembolic events (atrial fibrillation, previous thromboembolism, LV dysfunction, hypercoagulable conditions) or an older generation mechanical AVR (i.e., ball in-Cage) or any mechanical MVR should have a INR therapeutic range of 2.5 to 3.5 (target INR of 3). Mikaela GH, et al. Chest 2012, 141:7S-47S Cam DIAZ et al. [facility] 2017, 70: 252-289 Performed By: #### 3 4528-0 ####[facility] LABIA [id number] [place] [address] [place] PT Coag (PPP) [Time] 11.1 s Normal 9.7-13.0 [facility] Comment on above: Order Comment: Speci men Type: BLOOD SPECIMENOrdering Facility: [facility] Address: [address] [place] [address] Performed By: #### 3 4528-0 ####[facility] S[facility]THIA [id number] [place] [address] [place] Renal function 2000 panelon 05-14-2024 Albumin [Mass/Vol] 3.4 g/dL Low 3.9-4.9 [facility] Comment on above: Order Comment: Speci men Type: BLOOD SPECIMENOrdering Facility: [facility] Address: [address] [place] [address] Performed By: #### 2 4362-6 ####[facility] [id number] [place] [address] [place] Anion gap [Moles/Vol] 12 mmol/L Normal 8-15 [facility] Comment on above: Order Comment: Speci men Type: BLOOD SPECIMENOrdering Facility: [facility] Address: [address] [place] [address] Performed By: #### 2 4362-6 ####[facility] LABIA [id number] [place] [address] [place] Calcium [Mass/Vol] 8.5 mg/dL Normal 8.5-10.2 [facility] Comment on above: Order Comment: Speci men Type: BLOOD SPECIMENOrdering Facility: [facility] Address: [address] [place] [address] Performed By: #### 2 4362-6 ####[facility] LABCLIA [id number] [place] [address] [place] Chloride [Moles/Vol] 103 mmol/L Normal 98-107 [facility] Comment on above: Order Comment: Speci men Type: BLOOD SPECIMENOrdering Facility: [facility] Address: [address] [place] [address] Performed By: #### 2 4362-6 ####[facility] LABCLIA [id number] [place] [address] [place] CO2 [Moles/Vol] 22 mmol/L Normal 22-30 [facility] Comment on above: Order Comment: Speci men Type: BLOOD SPECIMENOrdering Facility: [facility] Address: [address] [place] [address] Performed By: #### 2 4362-6 ####[facility] LABCLIA [id number] [place] [address] [place] Creatinine [Mass/Vol] 0.89 mg/dL Normal 0.58-0.96 [facility] Comment on above: Order Comment: Speci men Type: BLOOD SPECIMENOrdering Facility: [facility] Address: [address] [place] [address] Performed By: #### 2 4362-6 ####[facility] LABCLIA [id number] [place] [address] [place] Creatinine and Glomerular filtration rate.predicted panel (S/P/Bld) 62 mL/min/1.73m??? Normal >=60 [facility] Comment on above: Order Comment: Speci men Type: BLOOD SPECIMENOrdering Facility: [facility] Address: [address] [place] [address] Result Comment: Michael mated Glomerular Filtration Rate (eGFR) is calculated using the 2020 CKD-EPI creatinine equation. This equation utilizes serum creatinine, sex, and age as parameters. The creatinine assay has traceable calibration to isotope dilution-mass spectrometry. Refer to KDIGO guidelines for clinical interpretation. In patients with unstable renal function, e.g. those with acute kidney injury, the eGFR may not accurately reflect actual GFR. Performed By: #### 2 4362-6 ####[facility] LABIA [id number] [place] [address] [place] Glucose [Mass/Vol] 91 mg/dL Normal 74-99 [facility] Comment on above: Order Comment: Christopher hurd Type: BLOOD SPECIMENOrdering Facility: [facility] Address: [address] [place] [address] Result Comment: The [place] [employer] (ADA) provides guidance for cutoff values for fasting glucose and random glucose. The ADA defines fasting as no caloric intake for at least 8 hours. Fasting plasma glucose results between 100 to 125 mg/dL indicate increased risk for diabetes (prediabetes). Fasting plasma glucose results greater than or equal to 126 mg/dL meet the criteria for diagnosis of diabetes. In the absence of unequivocal hyperglycemia, results should be confirmed by repeat testing. In a patient with classic symptoms of hyperglycemia or hyperglycemic crisis, random plasma glucose results greater than or equal to 200 mg/dL meet the criteria for diagnosis of diabetes. Reference: Standards of Medical Care in Diabetes 2016, [place] [employer]. Diabetes Care. 2016.39(Suppl 1). Performed By: #### 2 4362-6 ####[facility] LABIA [id number] [place] [address] [place] Phosphate [Mass/Vol] 4.0 mg/dL Normal 2.7-4.8 [facility] Comment on above: Order Comment: Christopher hurd Type: BLOOD SPECIMENOrdering Facility: [facility] Address: [address] [place] [address] Performed By: #### 2 4362-6 ####[facility] LABIA [id number] [place] [address] [place] Potassium [Moles/Vol] 4.6 mmol/L Normal 3.7-5.1 [facility] Comment on above: Order Comment: Speci men Type: BLOOD SPECIMENOrdering Facility: [facility] Address: [address] [place] [address] Performed By: #### 2 4362-6 ####[facility] LABCLIA [id number] [place] [address] [place] Sodium [Moles/Vol] 137 mmol/L Normal 136-144 [facility] Comment on above: Order Comment: Speci men Type: BLOOD SPECIMENOrdering Facility: [facility] Address: [address] [place] [address] Performed By: #### 2 4362-6 ####[facility] LABCLIA [id number] [place] [address] [place] Urea nitrogen [Mass/Vol] 23 mg/dL High 7-21 [facility] Comment on above: Order Comment: Speci men Type: BLOOD SPECIMENOrdering Facility: [facility] Address: [address] [place] [address] Performed By: #### 2 4362-6 ####[facility] LABCLIA [id number] [place] [address] [place] THERAPY NTon 05-14-2024 THERAPY NT HNO ID: [id number] Author: MARCELLA TERRY PT, DPT Service: Physical Therapy Author Type: Physical Therapist Type: Therapy (PT/OT/Speech/Resp) Filed: 05/14/2024 16:13 Note Text: PHYSICAL THERAPY MISSED VISIT SERVICE DATE: 05/14/2024 SERVICE TIME: 1402 ROOM: [place] [address] Patient not seen due to Declined to Participate. Pt waiting for lunch, requesting PT to return later. PT will continue to follow and re-attempt as able. SIGNATURE: Marcella Terry PT, DPT PATIENT NAME: Harjit Solomon DATE: May 14, 2024 TIME: 4:13 PM Normal [facility] THERAPY NT HNO ID: [id number] Author: ROLANDA WEEKS, OTR/L Service: Occupational Therapy Author Type: Occupational Therapist Type: Therapy (PT/OT/Speech/Resp) Filed: 05/14/2024 10:08 Note Text: Occupational Therapy Evaluation Summary SERVICE DATE: 05/14/2024 SERVICE TIME: 0846 to 0956 ROOM: [place] [address] OT 6 Clicks Score: 16 DISCHARGE RECOMMENDATIONS Subacute/SNF Recommended Discharge Disposition Due to: ADL impairment, Coordination deficits, Functional status decline, Requires multiple therapy disciplines Anticipated Discharge Needs: Physical Assist at Home Physical Assist at Home for: Laundry, Meals, Cleaning, Stairs, Safety, Self Care, Transportation, Shopping ASSESSMENT Response to Therapy Interventions: Coping Deficits, Good Participation in Activities PRECAUTIONS Fall Risk CURRENT HOSPITAL COURSE transferred from [place] ED May 11, 2024 with RF cortical SAH/ICH Relevant Past Medical History: HTN, HLD, pAF on warfarin, NEL, osteoporosis, secondary hypothyroidism HOME LIVING Patient Lives With: Self/Alone Assistance Available: Part-Time (Friends and neighbors can provide assist part-time, family also lives close by) Entry To Home: Stairs Number Of Stairs Into Home: 3 Number Of Stairs To Bed/Bath: 0 Tub/Shower Type: walk in shower with build in seats, also has shower chair though stands regularly Laundry: pt completes, can have assist if needed Equipment Owned: Elevated Toilet Seat, Grab Bars- Shower, Grab Bars- Toilet, Rollator, Shower Chair, Walker- Wheeled, Wheelchair- Manual, Hand Held Shower, Sock Aid, Cane PRIOR FUNCTIONAL LEVEL Within Functional Limits Pt reports mod(I) in mobility using rollator for most mobility. Pt reports IND in ADLs, though can have assist from family if needed. Pt reports falling in the past, most recent ~1 year ago. Pt had been active in HHPT but not recently, no longer drives. SUBJECTIVE I just don't want to lose my independence" COGNITION Psychosocial Factors Impacting Care: Anxiety/Stress, Availability/Quality of Support Systems, Depression/Isolation , Resiliency, Maladaptive Thinking/Behaviors Cog 6 Start of Session Total Points (Max Score = 24): 23 (05/14/24) Cog 6 End of Session Total Points (Max Score = 24): 24 (05/14/24) Short Blessed Final Score: 4 (05/14/24) Administered the Short Blessed Test (Blessed Larjgpejodw-Dfjgkv-Y oncentration Test) was derived from the longer 26-item Blessed Information Memory Concentration Scale. The test consists of 6 questions assessing temporal orientation, recall, backwards counting and naming. Patient scored a 4 (Range 0-28) Scorin-4 Normal Cognition 5-9 Questionable impairment/mild cognitive deficit 10 or more impaired consistent with dementia/cognitive impairment Please note that this assessment is not used to diagnose dementia, but rather it is used as a screening tool for early detection and need for further assessment/testing. 4AT Score: 0 (05/14/24) Delirium Positive/Negative: Negative (05/14/24) Cognitive Activities Performed: Coping, emotional support/empowerment, relaxation techniques Strength: Strength Limitation Comments Strength Limitation Comments: LUE grossly 4/5 Coordination Deficits: In hand manipulation, Finger opposition, Finger to nose Finger to Nose Impairment: Left Finger Opposition Impairment: Left Hand Manipulation Impairment: Left THERAPY DIAGNOSIS General symptoms and signs-other TREATMENT INTERVENTIONS Evaluation, Self Usp Management (45947), Neuromuscular Reeducation (13384) Timed Code Treatment (minutes): 55 Skilled Treatment Time (minutes): 70 TRAINING AND EDUCATION PROVIDED Activity Adaptation/Compensat ory Strategies, Adaptive Equipment/DME, Assistive Device Use, Attention Diversion Techniques, Bed Mobility, Benefits of In-Hospital Mobility, Body Image/Self-Esteem, Coping Skills/Resiliency, Discharge Planning, Emotional Regulation, Expected Functional Level, Fine Motor Coordination, Grooming Tasks, Functional Mobility Involving ADLs, Home Set-up/Modifications , IADLs/Home Management, Identification of Systems of Support, Insight into Deficits, Life Roles/Routines/Habit s, Lower Extremity Dressing, Lower Extremity Bathing, Pain Management, Role of Occupational Therapy, Precautions/Restrict ions, Self-Efficacy, Self-Expression/Advo cacy, Transfer - Bed to Chair, Transfer - Sit to Stand, Upper Extremity Dressing, Upper Extremity Bathing THERAPEUTIC SKILLS USED Activity Dosing, Assessment of Tolerance Including Vitals Response to Activity, Cuing Visual, Cuing Verbal, Cuing Tactile, Cues for Sequencing/Proper Technique for Activity, Therapeutic Use of Self, Physical Assist, Facilitation of Joint Range of Motion, Dual Task Activities, Bilateral UE Integration FUNCTIONAL STATUS Activities of Daily Living Assist Level Additional Information Feeding Set Up Grooming Set Up Bathing Upper Body Moderate Assistance (more content not included)... Normal [facility] ALLIED HEALTHon 05-13-2024 ALLIED HEALTH HNO ID: [id number] Author: AYESHA PAEZ MRI Tech Service: Radiology Author Type: Technologist Type: Allied Health Filed: 05/13/2024 09:03 Note Text: Radiology Service Progress Note PATIENT NAME: Harjit Solomon DATE OF SERVICE: May 13, 2024 TIME: 9:02 AM PATIENT IDENTITY VERIFICATION COMPLETED USING TWO (2) IDENTIFIERS: Name and Date of confirmed by patient verbally and Name and Date of confirmed by identification band. FALL SCREENING: Has the patient had 2 falls in the last year or 1 fall with injury or currently using an Ambulatory Assistive Device (Walker, Cane, Wheelchair, Crutches, etc.)? No PATIENT GENDER DATA: Female. status: : No status: NO. PATIENT RELEVANT IMPLANT DATA REVIEWED: Yes PATIENT PRESENTS WITH AN IMPLANTABLE OR ATTACHED HOME AND SCHOOL VISITOR: No RADIOLOGY DEPARTMENT: MR; Exam(s) Completed: Head: Routine Brain PERIPHERAL IV DATA: Inpatient: see LDA documentation SIGNED BY: LE Whitman May 13, 2024 9:02 AM Normal [facility] Bacteria Bld Culton 05-13-19 25 Bacteria identified Cx Nom (Bld) CULTURE, BLOOD: No growth 5 days Normal [facility] Comment on above: Performed By: #### 6 00-7 ####[facility] LABCLIA [id number] [place] [address] [place] CBC W Auto Differential pane l (Bld)on 05-13-2024 Basophils (Bld) [#/Vol] 0.05 10*3/uL Normal <0.11 [facility] Comment on above: Order Comment: Speci men Type: BLOOD SPECIMENOrdering Facility: [facility] Address: [address] [place] [address] Performed By: #### 5 7021-8 ####[facility] LABCLIA [id number] [place] [address] [place] Basophils/100 WBC (Bld) 0.7 % Normal C [facility] Comment on above: Order Comment: Speci men Type: BLOOD SPECIMENOrdering Facility: [facility] Address: [address] [place] [address] Performed By: #### 5 7021-8 ####[facility] LABCLIA [id number] [place] [address] [place] Differential cell count method Nom (Bld) Auto Normal [facility] Comment on above: Order Comment: Speci men Type: BLOOD SPECIMENOrdering Facility: [facility] Address: [address] [place] [address] Performed By: #### 5 7021-8 ####[facility] LABCLIA [id number] [place] [address] [place] Eosinophils (Bld) [#/Vol] 0.32 10*3/uL Normal <0.46 [facility] Comment on above: Order Comment: Speci men Type: BLOOD SPECIMENOrdering Facility: [facility] Address: [address] [place] [address] Performed By: #### 5 7021-8 ####[facility] LABCLIA [id number] [place] [address] [place] Eosinophils/100 WBC (Bld) 4.7 % Normal [facility] Comment on above: Order Comment: Speci men Type: BLOOD SPECIMENOrdering Facility: [facility] Address: [address] [place] [address] Performed By: #### 5 7021-8 ####[facility] LABCLIA [id number] [place] [address] [place] Erythrocyte distribution width (RBC) [Ratio] 14.5 % Normal 11.5-15.0 [facility] Comment on above: Order Comment: Speci men Type: BLOOD SPECIMENOrdering Facility: [facility] Address: [address] [place] [address] Performed By: #### 5 7021-8 ####[facility] LABCLIA [id number] [place] [address] [place] Hematocrit (Bld) [Volume fraction] 33.3 % Low 36.0-46.0 [facility] Comment on above: Order Comment: Speci men Type: BLOOD SPECIMENOrdering Facility: [facility] Address: [address] [place] [address] Performed By: #### 5 7021-8 ####[facility] LABIA [id number] [place] [address] [place] Hemoglobin (Bld) [Mass/Vol] 10.4 g/dL Low 11.5-15.5 [facility] Comment on above: Order Comment: Speci men Type: BLOOD SPECIMENOrdering Facility: [facility] Address: [address] [place] [address] Performed By: #### 5 7021-8 ####[facility] LABIA [id number] [place] [address] [place] Immature granulocytes (Bld) [#/Vol] 10*3/uL Normal <0.10 [facility] Comment on above: Order Comment: Speci men Type: BLOOD SPECIMENOrdering Facility: [facility] Address: [address] [place] [address] Performed By: #### 5 7021-8 ####[facility] LABCLIA [id number] [place] [address] [place] Immature granulocytes/100 WBC (Bld) 0.3 % Normal [facility] Comment on above: Order Comment: Speci men Type: BLOOD SPECIMENOrdering Facility: [facility] Address: [address] [place] [address] Performed By: #### 5 7021-8 ####[facility] LABCLIA [id number] [place] [address] [place] Lymphocytes (Bld) [#/Vol] 1.57 10*3/uL Normal 1.00-4.00 [facility] Comment on above: Order Comment: Speci men Type: BLOOD SPECIMENOrdering Facility: [facility] Address: [address] [place] [address] Performed By: #### 5 7021-8 ####[facility] LABIA [id number] [place] [address] [place] Lymphocytes/100 WBC (Bld) 23.3 % Normal [facility] Comment on above: Order Comment: Speci men Type: BLOOD SPECIMENOrdering Facility: [facility] Address: [address] [place] [address] Performed By: #### 5 7021-8 ####[facility] LABIA [id number] [place] [address] [place] MCH (RBC) [Entitic mass] 28.7 pg Normal 26.0-34.0 [facility] Comment on above: Order Comment: Speci men Type: BLOOD SPECIMENOrdering Facility: [facility] Address: [address] [place] [address] Performed By: #### 5 7021-8 ####[facility] LABIA [id number] [place] [address] [place] MCHC (RBC) [Mass/Vol] 31.2 g/dL Normal 30.5-36.0 [facility] Comment on above: Order Comment: Speci men Type: BLOOD SPECIMENOrdering Facility: [facility] Address: [address] [place] [address] Performed By: #### 5 7021-8 ####[facility] LABIA [id number] [place] [address] [place] MCV (RBC) [Entitic vol] 92.0 fL Normal 80.0-100.0 C [facility] Comment on above: Order Comment: Speci men Type: BLOOD SPECIMENOrdering Facility: [facility] Address: [address] [place] [address] Performed By: #### 5 7021-8 ####[facility] LABCLIA [id number] [place] [address] [place] Monocytes (Bld) [#/Vol] 0.74 10*3/uL Normal <0.87 [facility] Comment on above: Order Comment: Speci men Type: BLOOD SPECIMENOrdering Facility: [facility] Address: [address] [place] [address] Performed By: #### 5 7021-8 ####[facility] LABCLIA [id number] [place] [address] [place] Monocytes/100 WBC (Bld) 11.0 % Normal [facility] Comment on above: Order Comment: Speci men Type: BLOOD SPECIMENOrdering Facility: [facility] Address: [address] [place] [address] Performed By: #### 5 7021-8 ####[facility] LABCLIA [id number] [place] [address] [place] Neutrophils (Bld) [#/Vol] 4.04 10*3/uL Normal 1.45-7.50 [facility] Comment on above: Order Comment: Speci men Type: BLOOD SPECIMENOrdering Facility: [facility] Address: [address] [place] [address] Performed By: #### 5 7021-8 ####[facility] LABCLIA [id number] [place] [address] [place] Neutrophils/100 WBC (Bld) 60.0 % Normal [facility] Comment on above: Order Comment: Speci men Type: BLOOD SPECIMENOrdering Facility: [facility] Address: [address] [place] [address] Performed By: #### 5 7021-8 ####[facility] LABCLIA [id number] [place] [id number] [address] [place] Nucleated RBC (Bld) [#/Vol] 10*3/uL Normal <0.01 [facility] Comment on above: Order Comment: Speci men Type: BLOOD SPECIMENOrdering Facility: [facility] Address: [address] [place] [address] Performed By: #### 5 7021-8 ####[facility] LABCLIA [id number] [place] [address] [place] Nucleated RBC/100 WBC (Bld) [Ratio] 0.0 /100 WBC Normal [facility] Comment on above: Order Comment: Speci men Type: BLOOD SPECIMENOrdering Facility: [facility] Address: [address] [place] [address] Performed By: #### 5 7021-8 ####[facility] LABCLIA [id number] [place] [address] [place] Platelet mean volume (Bld) [Entitic vol] 9.4 fL Normal 9.0-12.7 [facility] Comment on above: Order Comment: Speci men Type: BLOOD SPECIMENOrdering Facility: [facility] Address: [address] [place] [address] Performed By: #### 5 7021-8 ####[facility] LABIA [id number] [place] [address] [place] Platelets (Bld) [#/Vol] 334 10*3/uL Normal 150-400 [facility] Comment on above: Order Comment: Speci men Type: BLOOD SPECIMENOrdering Facility: [facility] Address: [address] [place] [address] Performed By: #### 5 7021-8 ####[facility] LABCLIA [id number] [place] [address] [place] RBC (Bld) [#/Vol] 3.62 10*6/uL Low 3.90-5.20 [facility] Comment on above: Order Comment: Speci men Type: BLOOD SPECIMENOrdering Facility: [facility] Address: [address] [place] [address] Performed By: #### 5 7021-8 ####[facility] LABIA [id number] [place] [address] [place] WBC (Bld) [#/Vol] 6.74 10*3/uL Normal 3.70-11.00 [facility] Comment on above: Order Comment: Speci men Type: BLOOD SPECIMENOrdering Facility: [facility] Address: [address] [place] [address] Performed By: #### 5 7021-8 ####[facility] LABIA [id number] [place] [address] [place] CONSULT PROGon 05-13-2024 CONSULT PROG HNO ID: [id number] Author: ESTER MIR MD Service: Neurology Stroke Author Type: Resident Type: Consult Progress Note Filed: 05/13/2024 17:48 Note Text: Attestation signed by Latanya Veras MD at 05/13/2024 8:28 PM [facility] [place], [facility] BY [facility] STAFF PHYSICIAN NOTE OF PERSONAL INVOLVEMENT IN CARE I have reviewed the consult note obtained and documented by the resident, and I personally participated in the draper components. I have discussed the case and management of the patient's care. The following comments revise or confirm relevant draper components of the note. Brief Assessment: Harjit Solomon is a 89 year old with PMH significant for afib on warfarin, who is admitted with R vertex SAH, s/p Kcentra. 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 NGTD on blood cultures, TTE showed no vegetation. Patient c/o fluctuating LUE weakness with some worsening of baseline pain. Will obtain 20 minute EEG to r/o epileptiform discharges/focal seizures. 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 This note was partially generated using [employer] voice recognition system, and there may be some incorrect words, spellings, and punctuation that were not noted in checking the note before saving. Voice recognition software is inherently subject to errors including those of syntax and sound-alike substitutions which may escape proofreading. In such instances, original meaning may be extrapolated by contextual derivation. NEURO STROKE CONSULT PROGRESS NOTE SERVICE DATE: 05/13/2024 SERVICE TIME: 11:30 AM Subjective INTERVAL HISTORY: - Reports progression in weakness which has now gone to her arm from her hand - TCD US done later today was negative for vasospasm - NSGY does not feel surgical intervention is indicated MEDICATIONS Current Facility-Administere d Medications Medication Dose Route Frequency NaCl 0.9% iv flush bag 20 mL INTRAVENOUS PRN acetaminophen 650 mg tab(s) (TYLENOL) 650 mg ORAL/FEEDING TUBE q 4 H PRN senna-docusate 8.6-50 mg 1 tablet (SENNA-S) 1 tablet ORAL/FEEDING TUBE BID ondansetron (PF) 4 mg injection (ZOFRAN) 4 mg INTRAVENOUS q 6 H PRN hydrOXYzine pamoate 25 mg cap(s) (VISTARIL) 25 mg ORAL/FEEDING TUBE q 6 H PRN rOPINIRole (REQUIP) tab(s) 3 mg 3 mg ORAL/FEEDING TUBE AT BEDTIME oxyCODONE IR 5-10 mg tab(s) (ROXICODONE) 5-10 mg ORAL/FEEDING TUBE q 4 H PRN sodium chloride 0.9 % (flush) 2-10 mL (BD POSIFLUSH) 2-10 mL INTRAVENOUS DIRECTED PRN And perflutren lipid microspheres 1.1 mg/mL 1.3 mL injection (DEFINITY) 1.3 mL INTRAVENOUS DIRECTED PRN iv contrast (radiology procedure) INTRAVENOUS DIRECTED PRN heparin 5,000 Units injection 5,000 Units SUBCUTANEOUS q 12 H atenolol 25 mg tab(s) (TENORMIN) 25 mg ORAL DAILY losartan 50 mg tab(s) (COZAAR) 50 mg ORAL/FEEDING TUBE DAILY Objective PHYSICAL EXAM Vital Signs: BP 166/73 Pulse 80 Temp 36.7 ?C (98.1 ?F) (Oral) Resp 28 Ht 152.4 cm (5') Wt 74.3 kg (163 lb 12.8 oz) SpO2 91% BMI 31.99 kg/m? GENERAL: Awake/easily arousable HEENT: Normocephalic/atraum atic. Hard of hearing RESPIRATORY: Not assessed CARDIOVASCULAR: Not assessed GI: Not assessed EXTREMITIES: Venous stasis in the BLE SKIN: Not assessed MUSCULOSKELETAL: TTP of the LLE NEUROLOGICAL: LOC: 0 - alert and responsive 0 LOC Questions: 0 - both correct 0 LOC Commands: 0 - both correct 0 Best Gaze: 0 - normal gaze 0 Visual: 0 - no visual loss 0 Facial Palsy: 0 - normal 0 Motor Left Arm: 0 - no drift 0 Motor Right Arm: 0 - no drift 0 Motor Left Le - no drift 0 Motor Right Le - no drift 0 Limb Ataxia: 0 - no ataxia (or aphasic, hemiplegic) 0 Sensory: 0 - normal 0 Best Language: 0 - normal 0 Dysarthria: 0 - normal 0 Extinction and Inattention: 0 - normal, none detected (or visual loss alone) 0 Daily NIHSS Score: 0 (05/13/24 1130 : Ester Mir MD) 0 MENTAL STATUS: Alert, oriented to person, place and time and Follows commands CRANIAL NERVES: PERRLA, EOM's intact, Visual aparicio intact to confrontation, Extraocular movements intact, Facial sensation intact, Face symmetric, No facial droop or ptosis, hard of hearing, No dysarthria, Palate elevates symmetrically, and Tongue protrudes midline MOTOR: No d (more content not included)... Normal [facility] Comprehensive metabolic 2000 panelon 05-13-2024 Albumin [Mass/Vol] 3.5 g/dL Low 3.9-4.9 [facility] Comment on above: Order Comment: Speci men Type: BLOOD SPECIMENOrdering Facility: [facility] Address: [address] [place] [address] Performed By: #### 2 276-4, 2777-1, 75384-8, 11433-4, 85996-0 ####[facility] LABIA [id number] [place] [address] [place] ALP [Catalytic activity/Vol] 61 U/L Normal 34-123 [facility] Comment on above: Order Comment: Speci men Type: BLOOD SPECIMENOrdering Facility: [facility] Address: [address] [place] [address] Performed By: #### 2 276-4, 2777-1, 41851-2, 86507-9, 53277-3 ####[facility] LABIA [id number] [place] [address] [place] ALT [Catalytic activity/Vol] 11 U/L Normal 7-38 [facility] Comment on above: Order Comment: Speci men Type: BLOOD SPECIMENOrdering Facility: [facility] Address: [address] [place], [place] [address] Performed By: #### 2 276-4, 2777-1, 98190-0, 04719-0, 59828-1 ####[facility] LABIA [id number] [place] [id number] [place] Anion gap [Moles/Vol] 11 mmol/L Normal 8-15 [facility] Comment on above: Order Comment: Speci men Type: BLOOD SPECIMENOrdering Facility: [facility] Address: [address] [place] [address] Performed By: #### 2 276-4, 2777-1, 60734-8, 80233-1, 88379-5 ####[facility] LABCLIA [id number] [place] [id number] [place] AST [Catalytic activity/Vol] 17 U/L Normal 13-35 [facility] Comment on above: Order Comment: Speci men Type: BLOOD SPECIMENOrdering Facility: [facility] Address: [address] [place] [address] Performed By: #### 2 276-4, 2777-1, 71346-7, 05727-2, 10471-2 ####[facility] LABCLIA [id number] [place] [address] [place] Bilirubin [Mass/Vol] 0.5 mg/dL Normal 0.2-1.3 [facility] Comment on above: Order Comment: Speci men Type: BLOOD SPECIMENOrdering Facility: [facility] Address: [address] [place] [address] Performed By: #### 2 276-4, 2777-1, 93375-4, 66935-0, 24439-5 ####[facility] LABIA [id number] [place] [address] [place] Calcium [Mass/Vol] 8.6 mg/dL Normal 8.5-10.2 [facility] Comment on above: Order Comment: Speci men Type: BLOOD SPECIMENOrdering Facility: [facility] Address: [address] [place] [address] Result Comment: Resu lt rechecked. Performed By: #### 2 276-4, 2777-1, 94206-2, 40542-5, 20737-1 ####[facility] LABCLIA [id number] [place] [id number] [place] Chloride [Moles/Vol] 103 mmol/L Normal 98-107 [facility] Comment on above: Order Comment: Speci men Type: BLOOD SPECIMENOrdering Facility: [facility] Address: [address] [place], [place] [address] Performed By: #### 2 276-4, 2777-1, 34322-0, 47584-2, 29735-6 ####[facility] LABCLIA [id number] [address] [address] [place] CO2 [Moles/Vol] 26 mmol/L Normal 22-30 [facility] Comment on above: Order Comment: Speci men Type: BLOOD SPECIMENOrdering Facility: [facility] Address: [address] [place], [place] [address] Performed By: #### 2 276-4, 2777-1, 27342-1, 76767-5, 10601-3 ####[facility] LABIA [id number] [place] [id number] [place] Creatinine [Mass/Vol] 0.87 mg/dL Normal 0.58-0.96 [facility] Comment on above: Order Comment: Speci men Type: BLOOD SPECIMENOrdering Facility: [facility] Address: [address] [place] [address] Performed By: #### 2 276-4, 2777-1, 87405-6, 23934-4, 92470-6 ####[facility] [id number] [place] [id number] [place] Creatinine and Glomerular filtration rate.predicted panel (S/P/Bld) 64 mL/min/1.73m??? Normal >=60 [facility] Comment on above: Order Comment: Speci men Type: BLOOD SPECIMENOrdering Facility: [facility] Address: [address] [place] [address] Result Comment: Michael mated Glomerular Filtration Rate (eGFR) is calculated using the 2020 CKD-EPI creatinine equation. This equation utilizes serum creatinine, sex, and age as parameters. The creatinine assay has traceable calibration to isotope dilution-mass spectrometry. Refer to KDIGO guidelines for clinical interpretation. In patients with unstable renal function, e.g. those with acute kidney injury, the eGFR may not accurately reflect actual GFR. Performed By: #### 2 276-4, 2777-1, 78705-8, 04257-3, 84066-0 ####[facility] LABCLIA [id number] [address] [address] [place] Glucose [Mass/Vol] 99 mg/dL Normal 74-99 [facility] Comment on above: Order Comment: Christopher hurd Type: BLOOD SPECIMENOrdering Facility: [facility] Address: [address] [place] [address] Result Comment: The [place] [employer] (ADA) provides guidance for cutoff values for fasting glucose and random glucose. The ADA defines fasting as no caloric intake for at least 8 hours. Fasting plasma glucose results between 100 to 125 mg/dL indicate increased risk for diabetes (prediabetes). Fasting plasma glucose results greater than or equal to 126 mg/dL meet the criteria for diagnosis of diabetes. In the absence of unequivocal hyperglycemia, results should be confirmed by repeat testing. In a patient with classic symptoms of hyperglycemia or hyperglycemic crisis, random plasma glucose results greater than or equal to 200 mg/dL meet the criteria for diagnosis of diabetes. Reference: Standards of Medical Care in Diabetes 2016, [place] [employer]. Diabetes Care. 2016.39(Suppl 1). Performed By: #### 2 276-4, 2777-1, 34187-6, 85042-1, 61438-1 ####[facility] LABCLIA [id number] [address] [address] [place] Potassium [Moles/Vol] 4.4 mmol/L Normal 3.7-5.1 [facility] Comment on above: Order Comment: Christopher hurd Type: BLOOD SPECIMENOrdering Facility: [facility] Address: [address] [place] [address] Performed By: #### 2 276-4, 2777-1, 49783-5, 37562-2, 74904-1 ####[facility] LABCLIA [id number] [address] [address] [place] Protein [Mass/Vol] 6.1 g/dL Low 6.3-8.0 [facility] Comment on above: Order Comment: Speci men Type: BLOOD SPECIMENOrdering Facility: [facility] Address: [address] [place] [address] Performed By: #### 2 276-4, 2777-1, 62416-0, 53950-4, 44624-7 ####[facility] LABIA [id number] [place] [id number] [place] Sodium [Moles/Vol] 140 mmol/L Normal 136-144 [facility] Comment on above: Order Comment: Speci men Type: BLOOD SPECIMENOrdering Facility: [facility] Address: [address] [place] [address] Performed By: #### 2 276-4, 2777-1, 66368-1, 32235-8, 42733-7 ####[facility] LABIA [id number] [place] [address] [place] Urea nitrogen [Mass/Vol] 25 mg/dL High 7-21 [facility] Comment on above: Order Comment: Speci men Type: BLOOD SPECIMENOrdering Facility: [facility] Address: [address] [place] [address] Performed By: #### 2 276-4, 2777-1, 32833-9, 06914-6, 63833-9 ####[facility] LABIA [id number] [place] [id number] [place] ECHOon 05-13-2024 Echocardiography Echocardiography Report: Transthoracic Echo 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 Height: 152.40 cm BSA: 1.77 m Weight: 73.94 kg BMI: 31.8 kg/m Heart rate 74 bpm Blood pressure 154/68 mmHg Technically difficult exam due to body habitus. Color Doppler was utilized to interrogate the cardiac valves assessed and spectral Doppler was utilized to determine the flow velocities and pressure gradients reported in this exam. MEASUREMENTS: Value Indexed Normal Max aortic dimension 3.2 cm Ao < 3.8 Left atrial volume 58 ml (biplane A-L) 33 ml/m Luis E <= 34 LV ID (diastole) 4.0 cm (2D) 2.26 cm/m LV ID (systole) 2.8 cm (2D) 1.61 cm/m IVS, leaflet tips 1.0 cm (2D) Posterior wall thickness 0.9 cm (2D) Left ventricular mass 126 g (2D) 71 g/m LV stroke volume 42 ml (2D biplane) LV end diastolic volume 70 ml (2D biplane) 39.8 ml/m 29<=EDVi<62 LV end systolic volume 28 ml (2D biplane) 15.9 ml/m Ejection Fraction 60 % (2D biplane) EF > 54 FINDINGS: LEFT VENTRICLE The left ventricle is normal in size. There is mild septal left ventricular hypertrophy. Left ventricular systolic function is normal. Normal left ventricular diastolic function. Mitral annular lateral E/e': 9.0. Mitral annular septal E/e': 12.8. Wall Motion: All scored segments are normal. RIGHT VENTRICLE The right ventricle is normal in size. Right ventricular systolic function is normal. RV systolic tissue Doppler velocity is 11.0 cm/s. Tricuspid annular displacement is 1.9 cm. Estimated right ventricular systolic pressure is 44 mmHg consistent with mild pulmonary hypertension. Estimated right atrial pressure is 15 mmHg based on IVC assessment. LEFT ATRIUM The left atrial cavity is normal in size. Pulmonary Veins: The pulmonary venous pattern showed normal systolic flow. RIGHT ATRIUM The right atrial cavity is normal in size. Inferior Vena Cava: The inferior vena cava appears dilated measuring 2.2 cm. The vessel decreases less than 50 percent with inspiration. MITRAL VALVE There is mild mitral annular calcification observed posterior. There is mild (1+) mitral valve regurgitation. There is mild thickening. The pressure half time is 70 msec. The peak mitral E/A ratio is 0.73. The average mitral E/e' ratio is 10.9. The mitral flow deceleration time is 240 msec. TRICUSPID VALVE The tricuspid valve leaflets are structurally normal. There is mild (1+ - 2+) tricuspid valve regurgitation. AORTIC VALVE There is mild (1+) aortic valve regurgitation. Tricuspid aortic valve. There is mild thickening. PULMONIC VALVE The pulmonic valve cusps are structurally normal. There is trace pulmonic valve regurgitation. AORTA The visualized aorta is normal in size. Measurements - Sinus: 3.1 cm. Mid ascending aorta 3.2 cm. PULMONARY ARTERIES The pulmonary arteries are unseen or not interrogated. PERICARDIUM There is no pericardial effusion. CONCLUSIONS: - Technically difficult exam due to body habitus. - Exam indication: Subarachnoid hemorrhage - The left ventricle is normal in size. There is mild septal left ventricular hypertrophy. Left ventricular systolic function is normal. EF = 60 5% (2D biplane) Normal left ventricular diastolic function. - The right ventricle is normal in size. Right ventricular systolic function is normal. - Mild MR 1+, no prolapse. Structurally normal valve. - Mild to moderate TR 1-2+. - Mild AI 1+. - Exam was compared with the prior echocardiographic exam performed on 02/03/2012. There is no significant change. * * * Final * * * [employer] : [id number] UID Normal [facility] Ferritin SerPl-mCncon 2024 Ferritin [Mass/Vol] 137.0 ng/mL Normal 14.7-205.1 [facility] Comment on above: Order Comment: Speci men Type: BLOOD SPECIMENOrdering Facility: [facility] Address: [address] [place] [address] Performed By: #### 2 276-4, 2777-1, 31936-1, 37308-3, 62314-8 ####[facility] LABCLIA [id number] [place] [address] [place] Iron and Iron binding capaci ty panelon 05-13-2024 Iron [Mass/Vol] 57 ug/dL Normal 41-186 [facility] Comment on above: Order Comment: Speci men Type: BLOOD SPECIMENOrdering Facility: [facility] Address: [address] [place], [place] [address] Performed By: #### 2 276-4, 2777-1, 08048-4, 99048-4, 93135-9 ####[facility] LABCLIA [id number] [address] [address] [place] Iron binding capacity [Mass/Vol] 244 ug/dL Normal 232-386 [facility] Comment on above: Order Comment: Speci men Type: BLOOD SPECIMENOrdering Facility: [facility] Address: [address] [place] [address] Performed By: #### 2 276-4, 2777-1, 80834-8, 47698-2, 47628-7 ####[facility] LABIA [id number] [place] [id number] [place] Iron/TIBC [Molar ratio] 23.4 % Normal 15.0-57.0 [facility] Comment on above: Order Comment: Speci men Type: BLOOD SPECIMENOrdering Facility: [facility] Address: [address] [place] [address] Performed By: #### 2 276-4, 2777-1, 86565-2, 62359-2, 52250-7 ####[facility] LABIA [id number] [place] [id number] [place] MRI BRAIN WO/W IVCONon 05-13 MRI BRAIN WO/W IVCON * * *Final Report* * * DATE OF EXAM: May 13 2024 9:27AM QBM 0295 - MRI BRAIN WO/W IVCON / PROCEDURE REASON: Subarachnoid hemorrhage (SAH), follow up * * * * Physician Interpretation * * * * EXAMINATION: MRI BRAIN WO/W IVCON HISTORY: Subarachnoid hemorrhage (SAH), follow up - - - Vasculitis - Subarachnoid hemorrhage (SAH), follow up - [id number] - - - Subarachnoid hemorrhage (SAH), follow up - TECHNIQUE: MRI brain routine protocol without and with contrast. M: [id number] MR Contrast: Dotarem Contrast Dose: 15 cc Route of Administration: IV COMPARISON: CTA head and neck the 05/11/2024. CT brain 05/12/2024. RESULT: Acute Change: No evidence of restricted diffusion to suggest an acute infarct. Hemorrhage: Small volume subarachnoid hemorrhage in the right precentral sulcus as seen by intrinsic T1 hyperintensity and FLAIR hyperintensity (series 6, image 8 and series 5, image 13). There is additional subsusceptibility changes involving the central sulcus and pre-/post central sulcus representing siderosis. Remote microhemorrhage in the right occipital lobe and in the in the right mesial temporal lobe. Mass Lesion/ Mass Effect: No evidence of intracranial mass or abnormal intracranial enhancement. No significant mass effect from the aforementioned hemorrhage. No abnormal intracranial enhancement following contrast administration. Chronic Change: Scattered patchy areas of increased T2 and FLAIR signal are present in the supratentorial white matter which is a nonspecific finding but likely represents mild chronic microvascular ischemia. Parenchyma: There is mild generalized parenchymal volume loss. Ventricles: Ventriculomegaly corresponds to the degree of parenchymal volume loss. Skull Base: Hypothalamic and pituitary region are grossly normal. Craniocervical junction is normal. No significant marrow replacement process. Vasculature: Major intracranial arteries and dural venous sinuses demonstrate typical flow voids, suggesting patency by spin echo criteria. Other: The paranasal sinuses and mastoid air cells are clear. The orbits and extracranial soft tissues are unremarkable. IMPRESSION: Similar appearance of small volume acute/subacute subarachnoid hemorrhage when compared to prior from CT brain on 05/12/2024, given differences in technique. Additional remote appearing blood products in the adjacent sulci. No acute intracranial abnormality otherwise. No abnormal intracranial enhancement or mass. Chronic white matter findings reflecting sequela of microvascular ischemia. 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 Transcribe Date/Time: May 13 2024 9:28A Dictated by : SVETLANA SOLOMON MD This examination was interpreted and the report reviewed and electronically signed by: SVETLANA SOLOMON MD on May 13 2024 9:42AM EST [id number] Normal [facility] Magnesium SerPl-mCncon 05-13 Magnesium [Mass/Vol] 2.8 mg/dL High 1.7-2.3 [facility] Comment on above: Order Comment: Speci men Type: BLOOD SPECIMENOrdering Facility: [facility] Address: [address] [place] [address] Result Comment: Resu lt rechecked. Performed By: #### 2 276-4, 2777-1, 90621-7, 24149-6, 94731-8 ####[facility] LABCLIA [id number] [facility] [address] [place] NURSING PROGon 05-13-2024 NURSING PROG HNO ID: [id number] Author: COLE SHERWOOD RN Service: Radiology Author Type: Registered Nurse Type: Nursing Progress Note Filed: 05/13/2024 10:09 Note Text: Radiology Service Progress Note DATE OF SERVICE: May 13, 2024 TIME: 08:48 AM PATIENT WEIGHT: 163LBS PATIENT IDENTITY VERIFICATION COMPLETED USING TWO (2) STANDARD IDENTIFIERS: Name and Date of confirmed by patient verbally and Name and Date of confirmed by identification band. FALL SCREENING: Has the patient had 2 falls in the last year or 1 fall with injury or currently using an Ambulatory Assistive Device (Walker, Cane, Wheelchair, Crutches, etc.)? Inpatient: Screened on floor PATIENT GENDER DATA: Female. status: : No status: NO. ALLERGIES: Reviewed and unchanged CONTRAST ALLERGY: No EXAM: MRI - CONTRAST TYPE: GROUP II IV SITE: Inpatient - refer to LDA documentation IV SITE APPEARANCE: Clean,Dry and Intact SIGNATURE: Cole Sherwood RN PATIENT NAME: Harjit Solomon DATE: May 13, 2024 TIME: 10:08 AM Normal [facility] NUTRITIONon 05-13-2024 NUTRITION HNO ID: [id number] Author: SAWYER MEDLEY RD Service: Nutrition Therapy Author Type: Registered Dietitian Type: Nutrition Filed: 05/13/2024 14:40 Note Text: NUTRITION THERAPY INITIAL ASSESSMENT SERVICE DATE: 05/13/2024 SERVICE TIME: 1030 Nutrition Assessment: Recommended Malnutrition Diagnosis: Mild Protein-Calorie Malnutrition In the context of: Acute Illness or Injury Based on: Insufficient Energy Intake Nutrition Diagnosis: Problem: Suboptimal protein/energy intake Related to: Inability to consume sufficient nutrients As evidenced by: Patient/family self-report Care Plan: Continue current diet Supplements: Ensure Plus High Protein Monitor oral intakes Monitor and Evaluation: Meet greater than 75% of estimated needs, Monitor fluid/electrolyte balance, Monitor labs, I/Os, vital signs, weight, Monitor bowel function Discharge Recommendations: Diet;Oral Supplements Diet: Regular as tolerated Oral Supplements: continue as needed HPI: 89 year old female admitted for ICH. Intake History: Nutrition Intake Prior to Admission: Less than 75% estimated energy needs greater than or equal to 1 month (decline in appetite over the past 2 months) Current Nutrition Intake: Greater than 75% estimated energy needs (so far for breakfast and lunch meals today) Spoke to patient at bedside this morning. Decline in appetite and oral intakes over the last 2 months No chewing or swallowing problems Noted multiple food allergies: gluten, cantaloupe, beets, eggplant, pork, dried yeast Patient agreed to trial oral nutrition supplement Ensure Plus HP Dosing Weight: 72.6 kg (160 lb 0.9 oz) Dosing Weight Type: Admit weight Estimated kilocalorie needs: 5024-8056 Calorie Calculation Method: 20-25 kcals/kg Estimated protein needs (grams): 73-88 Grams protein determined by: 1.0 - 1.2 g/kg Diet Orders (From admission, onward) Start Ordered 05/13/24 1115 SUPPLEMENT/SNACK PROVIDED START NOW Question Answer Comment Supplement 1 (19 years and up) ENSURE PLUS HIGH PROTEIN CHOCOLATE Supplement 1 Frequency BREAKFAST 05/13/24 1111 05/11/24 2330 DIET REGULAR START NOW 05/11/24 2328 Anthropometrics: Height: 152.4 cm (5') Weight: 74.3 kg (163 lb 12.8 oz) Usual Weight: 72.1 kg (159 lb) 2-3 months ago Usual Weight Obtained From: Patient Body mass index is 31.99 kg/m?. Weight Change: Stable weight(s) Physical Exam: Subcutaneous fat loss: No Subcutaneous Fat Loss Muscle loss: No Muscle Loss Potential micronutrient deficiency: Skin Edema/Ascites: No ascites, No edema GI Symptoms: None Functional Status: Unable to assess Potential Signs of Inflammation: Chronic condition, Hypoalbuminemia, Imaging studies MNT Billing: $ Initial Assessment: 1-15 minutes SIGNATURE: Sawyer Medley RD PATIENT NAME: Harjit Solomon DATE: May 13, 2024 TIME: 2:37 PM Normal [facility] PT panel Coag (PPP)on 2024 INR Coag (PPP) [Relative time] 1.0 {INR} Normal 0.9-1.3 [facility] Comment on above: Order Comment: Christopher hurd Type: BLOOD SPECIMENOrdering Facility: [facility] Address: [address] [place] [address] Result Comment: Nathalie min K Antagonist (VKA) Therapeutic Range: INR 2 to 3 (Target INR of 2.5) Note: For patients treated with VKA drugs, such as warfarin, the [place] [employer] 2012 Guideline recommends a therapeutic INR range of 2 to 3 (target INR of 2.5). This recommendation includes high-risk patients with antiphospholipid syndrome with previous arterial or venous thromboembolism, current-generation mechanical or bioprosthetic aortic heart valve replacement. Note: Patients with mechanical aortic valve replacement and additional risk factors for thromboembolic events (atrial fibrillation, previous thromboembolism, LV dysfunction, hypercoagulable conditions) or an older generation mechanical AVR (i.e., ball in-Cage) or any mechanical MVR should have a INR therapeutic range of 2.5 to 3.5 (target INR of 3). Walkertt GH, et al. Chest 2012, 141:7S-47S Cam RA, et al. [facility] 2017, 70: 252-289 Performed By: #### 3 4528-0, 26564-3 ####[facility] LABIA [id number] [place] [address] [place] PT Coag (PPP) [Time] 11.3 s Normal 9.7-13.0 [facility] Comment on above: Order Comment: Christopher hurd Type: BLOOD SPECIMENOrdering Facility: [facility] Address: [address] [place] [address] Performed By: #### 3 4528-0, 49689-4 ####[facility] LABIA [id number] [place] [address] [place] Phosphate SerPl-mCncon 05-13 Phosphate [Mass/Vol] 4.3 mg/dL Normal 2.7-4.8 [facility] Comment on above: Order Comment: Speci men Type: BLOOD SPECIMENOrdering Facility: [facility] Address: [address] [place] [address] Performed By: #### 2 276-4, 2777-1, 90536-1, 77848-6, 90930-2 ####[facility] LABCLIA [id number] [facility] [id number] THERAPY NTon 05-13-2024 THERAPY NT HNO ID: [id number] Author: LIANA BLANCO OT/Preet Service: Occupational Therapy Author Type: Occupational Therapist Type: Therapy (PT/OT/Speech/Resp) Filed: 05/13/2024 15:04 Note Text: OCCUPATIONAL THERAPY MISSED VISIT SERVICE DATE: 05/13/2024 SERVICE TIME: 1048 ROOM: [place] [id number] Patient not seen due to Patient Not Available. SIGNATURE: VICENTA Snow PATIENT NAME: Harjit Solomon DATE: May 13, 2024 TIME: 3:04 PM Normal [facility] THERAPY NT HNO ID: [id number] Author: MARCELLA TERRY, PT, DPT Service: Physical Therapy Author Type: Physical Therapist Type: Therapy (PT/OT/Speech/Resp) Filed: 05/13/2024 11:15 Note Text: Physical Therapy Treatment Summary SERVICE DATE: 05/13/2024 SERVICE TIME: 1025 to 1103 ROOM: [place] [address] PT 6 Clicks Score: 18 DISCHARGE RECOMMENDATIONS Subacute/SNF Recommended Discharge Disposition Comments: pending further mobility at next session Recommended Discharge Disposition Due to: Functional deficits requiring ongoing therapy service prior to discharge home., Anticipated community discharge, Balance deficits, Functional status decline Recommended Discharge Equipment: To Be Determined ASSESSMENT Response to Therapy Interventions: Good Participation in Activities Pt continues to be motivated to participate in therapy session, able to increase ambulation distances with shoes present. Pt requires CGA for all mobility with use of WW. Reports increased pain and fatigue in LUE today, able to director money WW but requires breaks due to fatigue. Pt walking small household distances, though with shuffling gait pattern. Pt reports will not be able to have assist for most of the day at home, and very fearful of falling/completing activities on her own. Updated recommendation to SNF at this time, with pt in agreement though hopeful to progress to home if able. PRECAUTIONS Fall Risk CURRENT HOSPITAL COURSE transferred from [place] ED May 11, 2024 with RF cortical SAH/ICH Relevant Past Medical History: HTN, HLD, pAF on warfarin, NEL, osteoporosis, secondary hypothyroidism HOME LIVING Patient Lives With: Self/Alone Assistance Available: Part-Time (Friends and neighbors can provide assist part-time, family also lives close by) Entry To Home: Stairs Number Of Stairs Into Home: 3 Number Of Stairs To Bed/Bath: 0 Tub/Shower Type: walk in shower with build in seats, also has shower chair though stands regularly Laundry: pt completes, can have assist if needed Equipment Owned: Elevated Toilet Seat, Grab Bars- Shower, Grab Bars- Toilet, Rollator, Shower Chair, Walker- Wheeled, Wheelchair- Manual PRIOR FUNCTIONAL LEVEL Within Functional Limits Pt reports mod(I) in mobility using rollator for most mobility. Pt reports IND in ADLs, though can have assist from family if needed. Pt reports falling in the past, most recent ~1 year ago. Pt had been active in HHPT but not recently, no longer drives. SUBJECTIVE agreeable to PT THERAPY DIAGNOSIS Reduced mobility-other TREATMENT INTERVENTIONS Therapeutic Activity (57265), Gait Training (25278) Timed Code Treatment (minutes): 38 Skilled Treatment Time (minutes): 38 TRAINING AND EDUCATION PROVIDED Advanced Balance Activities, Anatomy and Impact on Deficits, Assistive Device Use, Bed Mobility, Benefits of In-Hospital Mobility, Discharge Planning, Disease Specific Education, Equipment, Exercise Program, Expected Functional Level, Falls Prevention, Gait Pattern, Reduction of Deviations, Patient Exercise/Therapy Program Support Needs, Positioning, Precautions/Restrict ions, Role of Physical Therapy, Sitting Balance, Standing Balance, Transfers, Treatment Protocol THERAPEUTIC SKILLS USED Activity Dosing, Assessment of Tolerance Including Vitals Response to Activity, Cues for Sequencing/Proper Technique for Activity, Cuing Tactile, Cuing Verbal, Movement Facilitation, Physical Assist, Teach-Back for Education FUNCTIONAL STATUS Bed Mobility Supine To Sit: Contact Guard Assistance Scooting: Stand By Assistance Transfers Sit To Stand: Contact Guard Assistance Stand To Sit: Contact Guard Assistance Bed to Chair Contact Guard Assistance Bed To Chair Transfer Type: Stepping Bed To Chair Transfer Equipment: Wheeled Walker Gait Contact Guard Assistance small standing rest breaks during ambulation, shuffling gait pattern with R gaze preference but able to attend to both sides with cues. Pt able to director money WW with LUE though reports significant fatigue/pain in LUE Gait Device: Wheeled Walker General Deviations/Observati ons: Mary decreased, Flexed trunk posture, Shuffling Gait Gait Distance (feet): 75' Stairs GOALS Patient will demonstrate progress to optimize functional mobility, maximize activity tolerance and endurance to maximize function upon discharge. Rehab Potential: Excellent Progress Toward Goals: Progressing as expected PLAN PT Frequency: 4 Times Per Week Treatment Interventions: Education, Strengthening, Functional Mobility Training, Balance Training, Neuromuscular Re-education Plan for Next Visit: Bed Mobility, Chair Transfer Training, Fall Prevention, Gait Training, Exercise Instruction/Handout, Standing Balance SIGNATURE: Marcella Terry PT, DPT PATIENT NAME: Harjit Solomon DATE: May 13, 2024 TIME: 11:15 AM Normal [facility] US TRANSCRANIAL DOPPLERon US TRANSCRANIAL DOPPLER * * *Final Repor t* * * DATE OF EXAM: May 13 2024 2:00PM [facility] 1122 - US TRANSCRANIAL DOPPLER / PROCEDURE REASON: Subarachnoid hemorrhage (SAH), follow up * * * * Physician Interpretation * * * * CLINICAL HISTORY: 89-year-old female with subarachnoid hemorrhage Win-Aj grade II, Pena grade III identified on CTA dated 05/11/2024 day number 1. This examination is the patient's baseline exam. MCA(cm/sec) Left 56, PI 1.72 Right 50, PI 1.65 LAUREN(cm/sec) Left 56, PI 1.51 Right 42, PI 1.56 PALLIATIVE NURSE(cm/sec) Left 32, PI 1.70 Right 27, PI 1.87 LLR - RLR - Basilar(cm/sec) 38, PI 1.49 Vertebral(cm/sec) Left 33, PI 1.62 Right 37, PI 1.74 Technologist: Vanesa Mancia RVT, ANNETTE IMPRESSION: The mean flow velocities within all of the insonated vessels are within normal limits and symmetric. Today's examination demonstrates no evidence of vasospasm by sonographic criteria. The pulsatility indices are elevated globally which may indicate an increase in intracranial pressure, distal vasospasm, or small vessel ischemic disease. 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: [facility] Transcribe Date/Time: May 13 2024 2:23P Dictated by : QUINTIN MORA MD This examination was interpreted and the report reviewed and electronically signed by: QUINTIN MORA MD on May 13 2024 2:41PM EST [id number] Normal [facility] XR SHOULDER 2V AP/TRUE AP LT on 05-13-2024 XR SHOULDER 2V AP/TRUE AP LT * * *Final Report* * * DATE OF EXAM: May 13 2024 7:07PM [facility] 5254 - XR SHOULDER 2V AP/TRUE AP LT / PROCEDURE REASON: Arthritis * * * * Physician Interpretation * * * * HISTORY: Arthritis TECHNOLOGIST PROVIDED HISTORY (if applicable): TECHNIQUE: XR SHOULDER 2V AP/TRUE AP LT RESULT: LEFT shoulder 2 views. No acute fracture or dislocation. There is a healed remote fracture of the neck and greater tuberosity. Humeral narrowing and osteophytes are noted with small glenoid subchondral cysts. The acromiohumeral interval is normal. The acromioclavicular joint is preserved. She is osteopenic. There is a LEFT superior mediastinal surgical clip. Aorta calcifications are noted. IMPRESSION: Posttraumatic degenerative changes. 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: [facility] Transcribe Date/Time: May 13 2024 7:41P Dictated by : PRIYANKA CHAMORRO MD This examination was interpreted and the report reviewed and electronically signed by: PRIYANKA CHAMORRO MD on May 13 2024 7:43PM EST [id number] CN Normal [facility] aPTT PPPon 05-13-2024 aPTT Coag (PPP) [Time] 28.5 s Normal 23.0-32.4 [facility] Comment on above: Order Comment: Speci men Type: BLOOD SPECIMENOrdering Facility: [facility] Address: [address] [place] [address] Performed By: #### 3 4528-0, 87403-4 ####[facility] LABCLIA [id number] [place] [address] [place] Bacteria Bld Culton 05-12-19 25 Bacteria identified Cx Nom (Bld) CULTURE, BLOOD: No growth 5 days Normal [facility] Comment on above: Performed By: #### 6 00-7 ####[facility] LABCLIA [id number] [place] [address] [place] CBC W Auto Differential pane l (Bld)on 05-12-2024 Basophils (Bld) [#/Vol] 0.06 10*3/uL Normal <0.11 [facility] Comment on above: Order Comment: Speci men Type: BLOOD SPECIMENOrdering Facility: [facility] Address: [address] [place] [address] Performed By: #### 5 7021-8 ####[facility] LABCLIA [id number] [place] [address] [place] Basophils/100 WBC (Bld) 0.7 % Normal [facility] Comment on above: Order Comment: Speci men Type: BLOOD SPECIMENOrdering Facility: [facility] Address: [address] [place] [address] Performed By: #### 5 7021-8 ####[facility] LABCLIA [id number] [place] [address] [place] Differential cell count method Nom (Bld) Auto Normal [facility] Comment on above: Order Comment: Speci men Type: BLOOD SPECIMENOrdering Facility: [facility] Address: [address] [place] [address] Performed By: #### 5 7021-8 ####[facility] LABCLIA [id number] [place] [address] [place] Eosinophils (Bld) [#/Vol] 0.03 10*3/uL Normal <0.46 [facility] Comment on above: Order Comment: Speci men Type: BLOOD SPECIMENOrdering Facility: [facility] Address: [address] [place] [address] Performed By: #### 5 7021-8 ####[facility] LABCLIA [id number] [place] [address] [place] Eosinophils/100 WBC (Bld) 0.4 % Normal [facility] Comment on above: Order Comment: Speci men Type: BLOOD SPECIMENOrdering Facility: [facility] Address: [address] [place] [address] Performed By: #### 5 7021-8 ####[facility] LABCLIA [id number] [place] [address] [place] Erythrocyte distribution width (RBC) [Ratio] 14.0 % Normal 11.5-15.0 [facility] Comment on above: Order Comment: Speci men Type: BLOOD SPECIMENOrdering Facility: [facility] Address: [address] [place] [address] Performed By: #### 5 7021-8 ####[facility] LABCLIA [id number] [place] [address] [place] Hematocrit (Bld) [Volume fraction] 35.0 % Low 36.0-46.0 [facility] Comment on above: Order Comment: Speci men Type: BLOOD SPECIMENOrdering Facility: [facility] Address: [address] [place] [address] Performed By: #### 5 7021-8 ####[facility] LABCLIA [id number] [place] [address] [place] Hemoglobin (Bld) [Mass/Vol] 11.4 g/dL Low 11.5-15.5 [facility] Comment on above: Order Comment: Speci men Type: BLOOD SPECIMENOrdering Facility: [facility] Address: [address] [place] [address] Performed By: #### 5 7021-8 ####[facility] LABCLIA [id number] [place] [address] [place] Immature granulocytes (Bld) [#/Vol] 0.04 10*3/uL Normal <0.10 [facility] Comment on above: Order Comment: Speci men Type: BLOOD SPECIMENOrdering Facility: [facility] Address: [address] [place] [address] Performed By: #### 5 7021-8 ####[facility] LABCLIA [id number] [place] [address] [place] Immature granulocytes/100 WBC (Bld) 0.5 % Normal [facility] Comment on above: Order Comment: Speci men Type: BLOOD SPECIMENOrdering Facility: [facility] Address: [address] [place] [address] Performed By: #### 5 7021-8 ####[facility] LABCLIA [id number] [place] [address] [place] Lymphocytes (Bld) [#/Vol] 1.38 10*3/uL Normal 1.00-4.00 [facility] Comment on above: Order Comment: Speci men Type: BLOOD SPECIMENOrdering Facility: [facility] Address: [address] [place] [address] Performed By: #### 5 7021-8 ####[facility] LABCLIA [id number] [place] [address] [place] Lymphocytes/100 WBC (Bld) 17.2 % Normal [facility] Comment on above: Order Comment: Speci men Type: BLOOD SPECIMENOrdering Facility: [facility] Address: [address] [place] [address] Performed By: #### 5 7021-8 ####[facility] LABCLIA [id number] [place] [address] [place] MCH (RBC) [Entitic mass] 28.8 pg Normal 26.0-34.0 [facility] Comment on above: Order Comment: Speci men Type: BLOOD SPECIMENOrdering Facility: [facility] Address: [address] [place] [address] Performed By: #### 5 7021-8 ####[facility] LABCLIA [id number] [place] [address] [place] MCHC (RBC) [Mass/Vol] 32.6 g/dL Normal 30.5-36.0 [facility] Comment on above: Order Comment: Speci men Type: BLOOD SPECIMENOrdering Facility: [facility] Address: [address] [place] [address] Performed By: #### 5 7021-8 ####[facility] LABIA [id number] [place] [address] [place] MCV (RBC) [Entitic vol] 88.4 fL Normal 80.0-100.0 [facility] Comment on above: Order Comment: Speci men Type: BLOOD SPECIMENOrdering Facility: [facility] Address: [address] [place] [address] Performed By: #### 5 7021-8 ####[facility] LABIA [id number] [place] [address] [place] Monocytes (Bld) [#/Vol] 0.73 10*3/uL Normal <0.87 [facility] Comment on above: Order Comment: Speci men Type: BLOOD SPECIMENOrdering Facility: [facility] Address: [address] [place] [address] Performed By: #### 5 7021-8 ####[facility] LABIA [id number] [place] [address] [place] Monocytes/100 WBC (Bld) 9.1 % Normal [facility] Comment on above: Order Comment: Speci men Type: BLOOD SPECIMENOrdering Facility: [facility] Address: [address] [place] [address] Performed By: #### 5 7021-8 ####[facility] LABCLIA [id number] [place] [address] [place] Neutrophils (Bld) [#/Vol] 5.78 10*3/uL Normal 1.45-7.50 [facility] Comment on above: Order Comment: Speci men Type: BLOOD SPECIMENOrdering Facility: [facility] Address: [address] [place] [address] Performed By: #### 5 7021-8 ####[facility] LABCLIA [id number] [place] [address] [place] Neutrophils/100 WBC (Bld) 72.1 % Normal [facility] Comment on above: Order Comment: Speci men Type: BLOOD SPECIMENOrdering Facility: [facility] Address: [address] [place] [address] Performed By: #### 5 7021-8 ####[facility] LABIA [id number] [place] [address] [place] Nucleated RBC (Bld) [#/Vol] 10*3/uL Normal <0.01 [facility] Comment on above: Order Comment: Speci men Type: BLOOD SPECIMENOrdering Facility: [facility] Address: [address] [place] [address] Performed By: #### 5 7021-8 ####[facility] LABIA [id number] [place] [address] [place] Nucleated RBC/100 WBC (Bld) [Ratio] 0.0 /100 WBC Normal [facility] Comment on above: Order Comment: Speci men Type: BLOOD SPECIMENOrdering Facility: [facility] Address: [address] [place] [address] Performed By: #### 5 7021-8 ####[facility] LABIA [id number] [place] [address] [place] Platelet mean volume (Bld) [Entitic vol] 9.3 fL Normal 9.0-12.7 [facility] Comment on above: Order Comment: Speci men Type: BLOOD SPECIMENOrdering Facility: [facility] Address: [address] [place] [address] Performed By: #### 5 7021-8 ####[facility] LABIA [id number] [place] [id number] [place] Platelets (Bld) [#/Vol] 324 10*3/uL Normal 150-400 [facility] Comment on above: Order Comment: Speci men Type: BLOOD SPECIMENOrdering Facility: [facility] Address: [address] [place] [address] Result Comment: No c lot detected. Performed By: #### 5 7021-8 ####[facility] LABIA [id number] [place] [address] [place] RBC (Bld) [#/Vol] 3.96 10*6/uL Normal 3.90-5.20 [facility] Comment on above: Order Comment: Speci men Type: BLOOD SPECIMENOrdering Facility: [facility] Address: [address] [place] [address] Performed By: #### 5 7021-8 ####[facility] LABIA [id number] [place] [address] [place] WBC (Bld) [#/Vol] 8.02 10*3/uL Normal 3.70-11.00 [facility] Comment on above: Order Comment: Speci men Type: BLOOD SPECIMENOrdering Facility: [facility] Address: [address] [place] [address] Performed By: #### 5 7021-8 ####[facility] LABIA [id number] [place] [id number] [place] CT BRAIN WO IVCONon 05-12-19 CT BRAIN WO IVCON * * *Final Report* * * * * * SEE BOTTOM OF REPORT FOR ADDENDED TEXT * * * DATE OF EXAM: May 12 2024 4:54AM [facility] - CT BRAIN WO IVCON / PROCEDURE REASON: Subarachnoid hemorrhage (SAH) suspected * * * * Physician Interpretation * * * * * * * * * * * * ORIGINAL REPORT * * * * * * * * EXAMINATION: CT BRAIN WO IVCON CLINICAL HISTORY: Subarachnoid hemorrhage. TECHNIQUE: Serial axial images without IV contrast were obtained from the vertex to the foramen magnum. MQ: CTBWO_[id number] CT Radiation dose: Integrated Dose-Length Product (DLP) for this visit = 983 mGy*cm CT Dose Reduction Employed: No dose reduction techniques were required COMPARISON: CT brain 05/11/2024. RESULT: Localizer images: No significant findings. Post-operative change: None. Acute change: No evidence of an acute infarct or other acute parenchymal process. Hemorrhage: Slightly increased conspicuity of subarachnoid hemorrhage at the right perirolandic region and right parietal convexity. Mass Lesion / Mass Effect: There is no evidence of an intracranial mass or extraaxial fluid collection. No significant mass effect. Chronic change: None apparent. Parenchyma: There is no significant volume loss. The brain parenchyma is otherwise within normal limits for age. Ventricles: The ventricles are within normal limits of size and configuration for age. Paranasal sinuses and skull base: The visualized paranasal sinuses are grossly clear. The skull base and imaged soft tissues are unremarkable. IMPRESSION: Slightly increased volume of subarachnoid hemorrhage at the right perirolandic region. * * * * * * * * ADDENDUM #1 * * * * * * * * Addendum: Examination was discussed with the neurosurgery service as to whether the hemorrhage. The vertex could be parenchymal or subarachnoid. Subarachnoid hemorrhage is suspected given the apparent lack of edema within the adjacent cerebral parenchyma and the similar conformity of the hemorrhage to the mirrored sulcus on the left side. MRI could better help differentiate a parenchymal component to the hemorrhage and would more readily demonstrate subtle parenchymal edema that would suggest a parenchymal component. 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: [facility] Transcribe Date/Time: May 12 2024 5:46A Dictated by : JOSE LÓPEZ MD This examination was interpreted and the report reviewed and electronically signed by: JOSE LÓPEZ MD on May 12 2024 5:26AM EST This document has been addended by: JOSE LÓPEZ MD on May 12 2024 5:48AM EST [id number] CN Normal [facility] PT panel Coag (PPP)on 2024 INR Coag (PPP) [Relative time] 1.1 {INR} Normal 0.9-1.3 [facility] Comment on above: Order Comment: Christopher hurd Type: BLOOD SPECIMENOrdering Facility: [facility] Address: [address] [place] [address] Result Comment: Nathalie min K Antagonist (VKA) Therapeutic Range: INR 2 to 3 (Target INR of 2.5) Note: For patients treated with VKA drugs, such as warfarin, the [place] [employer] 2012 Guideline recommends a therapeutic INR range of 2 to 3 (target INR of 2.5). This recommendation includes high-risk patients with antiphospholipid syndrome with previous arterial or venous thromboembolism, current-generation mechanical or bioprosthetic aortic heart valve replacement. Note: Patients with mechanical aortic valve replacement and additional risk factors for thromboembolic events (atrial fibrillation, previous thromboembolism, LV dysfunction, hypercoagulable conditions) or an older generation mechanical AVR (i.e., ball in-Cage) or any mechanical MVR should have a INR therapeutic range of 2.5 to 3.5 (target INR of 3). Walkertt GH, et al. Chest 2012, 141:7S-47S Cam RA, et al. [facility] 2017, 70: 252-289 Performed By: #### 3 4528-0, 72440-4 ####[facility] [id number] [place] [address] [place] PT Coag (PPP) [Time] 11.7 s Normal 9.7-13.0 [facility] Comment on above: Order Comment: Christopher hurd Type: BLOOD SPECIMENOrdering Facility: [facility] Address: [address] [place] [address] Performed By: #### 3 4528-0, 16435-4 ####[facility] [id number] [place] [address] [place] THERAPY NTon 05-12-2024 THERAPY NT HNO ID: [id number] Author: MARCELLA TERRY, PT, DPT Service: Physical Therapy Author Type: Physical Therapist Type: Therapy (PT/OT/Speech/Resp) Filed: 05/12/2024 13:36 Note Text: Physical Therapy Evaluation Summary SERVICE DATE: 05/12/2024 SERVICE TIME: 1244 to 1324 ROOM: [place] [address] PT 6 Clicks Score: 19 DISCHARGE RECOMMENDATIONS Home PT Recommended Discharge Disposition Comments: pending further mobility at next session Recommended Discharge Equipment: To Be Determined ASSESSMENT Response to Therapy Interventions: Good Participation in Activities Pt pleasant and motivated to participate in therapy session. Pt limited only due to hypersensitivity in BLE and requests wearing shoes if ambulating (not available this date, but states will have brought to bedside). Pt with BLE edema (reports baseline). Pt able to complete bed mobility with SBA and transfer to bedside chair via small steps with WW at a CGA level. All vitals stable throughout. At this time, recommend d/c home with HHPT pending further progress with ambulation at next session. Will continue to update recommendation as needed. PRECAUTIONS Fall Risk CURRENT HOSPITAL COURSE transferred from [place] [facility] May 11, 2024 with RF cortical SAH/ICH Relevant Past Medical History: HTN, HLD, pAF on warfarin, NEL, osteoporosis, secondary hypothyroidism HOME LIVING Patient Lives With: Self/Alone Assistance Available: Part-Time (Friends and neighbors can provide assist part-time, family also lives close by) Entry To Home: Stairs Number Of Stairs Into Home: 3 Number Of Stairs To Bed/Bath: 0 Tub/Shower Type: walk in shower with build in seats, also has shower chair though stands regularly Laundry: pt completes, can have assist if needed Equipment Owned: Elevated Toilet Seat, Grab Bars- Shower, Grab Bars- Toilet, Rollator, Shower Chair, Walker- Wheeled, Wheelchair- Manual PRIOR FUNCTIONAL LEVEL Within Functional Limits Pt reports mod(I) in mobility using rollator for most mobility. Pt reports IND in ADLs, though can have assist from family if needed. Pt reports falling in the past, most recent ~1 year ago. Pt had been active in HHPT but not recently, no longer drives. SUBJECTIVE agreeable to PT THERAPY DIAGNOSIS Reduced mobility-other TREATMENT INTERVENTIONS Evaluation, Therapeutic Activity (70451) Timed Code Treatment (minutes): 25 Skilled Treatment Time (minutes): 40 TRAINING AND EDUCATION PROVIDED Advanced Balance Activities, Anatomy and Impact on Deficits, Assistive Device Use, Bed Mobility, Benefits of In-Hospital Mobility, Discharge Planning, Disease Specific Education, Equipment, Exercise Program, Expected Functional Level, Falls Prevention, Gait Pattern, Reduction of Deviations, Patient Exercise/Therapy Program Support Needs, Positioning, Precautions/Restrict ions, Role of Physical Therapy, Sitting Balance, Standing Balance, Transfers, Treatment Protocol THERAPEUTIC SKILLS USED Activity Dosing, Assessment of Tolerance Including Vitals Response to Activity, Cues for Sequencing/Proper Technique for Activity, Cuing Tactile, Cuing Verbal, Movement Facilitation, Physical Assist, Teach-Back for Education FUNCTIONAL STATUS Bed Mobility Supine To Sit: Stand By Assistance Scooting: Stand By Assistance Transfers Sit To Stand: Contact Guard Assistance Stand To Sit: Contact Guard Assistance Bed to Chair Contact Guard Assistance Bed To Chair Transfer Type: Stepping Bed To Chair Transfer Equipment: Wheeled Walker Gait Contact Guard Assistance, Additional Information Pt declines further ambulation 2/2 no shoes available and hypersensitivity on LE. Gait Device: Wheeled Walker General Deviations/Observati ons: Mary decreased, Flexed trunk posture, Shuffling Gait Gait Distance (feet): 5' side stepping to bedside chair Stairs ROM Right Lower Extremity ROM Comments: WFL Left Lower Extremity ROM Comments: WFL STRENGTH Right Lower Extremity Strength Comments: grossly 4/5 major muscle groups Left Lower Extremity Strength Comments: grossly 4/5 major muscle groups BALANCE Static Sitting Balance: Normal Dynamic Sitting Balance: Good Static Standing Balance: Fair Dynamic Standing Balance: Fair GOALS Patient will demonstrate progress to optimize functional mobility, maximize activity tolerance and endurance to maximize function upon discharge. Rehab Potential: Excellent Progress Toward Goals: Progressing as expected PLAN PT Frequency: 4 Times Per Week Treatment Interventions: Education, Strengthening, Functional Mobility Training, Balance Training, Neuromuscular Re-education Plan for Next Visit: Bed Mobility, Chair Transfer Training, Fall Prevention, Gait Training, Exercise Instruction/Handout, Standing Balance SIGNATURE: Marcella Terry PT, DPT PATIENT NAME: Harjit Solomon DATE: May 12, 2024 TIME: 1:36 PM Normal [facility] aPTT PPPon 05-12-2024 aPTT Coag (PPP) [Time] 21.2 s Low 23.0-32.[address] [facility] Comment on above: Order Comment: Speci men Type: BLOOD SPECIMENOrdering Facility: [facility] Address: [address] [place] [address] Performed By: #### 3 4528-0, 32372-1 ####[facility] LABCLIA [id number] [address] [place] [address] [place] 12 Lead EKGon 05-11-2024 12 Lead EKG Normal [facility] Absolute neutrophil countOrd ered By: Tylor Hendrickson on 05-11-2024 Absolute neutrophil count 5.5 X10^3/uL 2.0-7.7 [facility] Basic Metabolic Profile (BMP )on 05-11-2024 BUN/CRE 31.2 RATIO High 10-20 [facility] Comment on above: Order Comment: 'TROP ' Serial specimen #1, #2 or #3: 1 Performed By: #### L 300.3900, L500.2500, L501.4020, L100.0100 ####[facility] [address] [place], [address] CA,Total 9.4 mg/dL Normal 8.5-10.1 [facility] Comment on above: Order Comment: 'TROP ' Serial specimen #1, #2 or #3: 1 Performed By: #### L 300.3900, L500.2500, L501.4020, L100.0100 ####[facility] [address] [place], [address] Chloride [Moles/Vol] 100 mmol/L Normal 98-107 [facility] Comment on above: Order Comment: 'TROP ' Serial specimen #1, #2 or #3: 1 Performed By: #### L 300.3900, L500.2500, L501.4020, L100.0100 ####[facility] [address] [place], [address] CO2 [Moles/Vol] 29.0 mmol/L Normal 21.0-32.0 [facility] Comment on above: Order Comment: 'TROP ' Serial specimen #1, #2 or #3: 1 Performed By: #### L 300.3900, L500.2500, L501.4020, L100.0100 ####[facility] [address] [place], [address] Creatinine [Mass/Vol] 0.96 mg/dL Normal 0.55-1.02 [facility] Comment on above: Order Comment: 'TROP ' Serial specimen #1, #2 or #3: 1 Result Comment: The validity of the calculated GFR GFRAA in patients over70 years has not been determined. Clinical correlation isessential. Performed By: #### L 300.3900, L500.2500, L501.4020, L100.0100 ####[facility] [address] [place], [address] ECRCL 37.64 ml/min Normal [facility] Comment on above: Order Comment: 'TROP ' Serial specimen #1, #2 or #3: 1 Performed By: #### L 300.3900, L500.2500, L501.4020, L100.0100 ####[facility] [address] [place], [address] EST GFR - AA 70 mL/min Normal >60 [facility] Comment on above: Order Comment: 'TROP ' Serial specimen #1, #2 or #3: 1 Result Comment: Afri can [place] GFR Calc Performed By: #### L 300.3900, L500.2500, L501.4020, L100.0100 ####[facility] [address] [place], [address] GAP 7 Normal 5-15 [facility] Comment on above: Order Comment: 'TROP ' Serial specimen #1, #2 or #3: 1 Performed By: #### L 300.3900, L500.2500, L501.4020, L100.0100 ####[facility] [address] [place], [address] GFR/1.73 sq M.predicted among non-blacks MDRD (S/P/Bld) [Vol rate/Area] 58 mL/min/{1.73_m2} Low >60 [facility] Comment on above: Order Comment: 'TROP ' Serial specimen #1, #2 or #3: 1 Result Comment: Non- GFR Calc Performed By: #### L 300.3900, L500.2500, L501.4020, L100.0100 ####[facility] [address] [place], [address] Glucose [Mass/Vol] 124 mg/dL High 74-[address] [facility] Comment on above: Order Comment: 'TROP ' Serial specimen #1, #2 or #3: 1 Result Comment: Fast ing Glucose result from 100 to 125 mg/dLsuggests IMPAIRED HOMEOSTASIS per A.D.A. criteria. Performed By: #### L 300.3900, L500.2500, L501.4020, L100.0100 ####[facility] [address] [place], [address] Potassium [Moles/Vol] 4.2 mmol/L Normal 3.5-5.1 [facility] Comment on above: Order Comment: 'TROP ' Serial specimen #1, #2 or #3: 1 Performed By: #### L 300.3900, L500.2500, L501.4020, L100.0100 ####[facility] [address] [place], [address] Sodium [Moles/Vol] 136 mmol/L Normal 136-[address] [facility] Comment on above: Order Comment: 'TROP ' Serial specimen #1, #2 or #3: 1 Performed By: #### L 300.3900, L500.2500, L501.4020, L100.0100 ####[facility] [address] [place], [address] Urea nitrogen [Mass/Vol] 30 mg/dL High 7-18 [facility] Comment on above: Order Comment: 'TROP ' Serial specimen #1, #2 or #3: 1 Performed By: #### L 300.3900, L500.2500, L501.4020, L100.0100 ####[facility] [address] [place], [address] Basophil percentageOrdered B y: Tylor Hendrickson on 05-11-2024 Basophil percentage 0.9 % 0-1 [facility] Bedside Glucoseon 05-11-2024 FINGERSTICK GLU 113 mg/dL High 74-106 [facility] Comment on above: Result Comment: ANGELICA DWYER OF PATIENT CARE PER NURSING PROTOCOL Performed By: #### L 501.080 ####[facility] [address] [place], [address] Blood urea nitrogen (BUN)/cr eatinine ratioOrdered By: Tylor Hendrickson on 05-11-2024 Blood urea nitrogen (BUN)/creatinine ratio 31.2 RATIO High 10-20 [facility] Brain/Head without Contrasto n 05-11-2024 Brain/Head without Contrast Normal [facility] CBC W Auto Differential pane l (Bld)on 05-11-2024 Basophils (Bld) [#/Vol] 0.07 10*3/uL Normal <0.11 [facility] Comment on above: Order Comment: Speci men Type: BLOOD SPECIMENOrdering Facility: [facility] Address: [address] [place] [address] Performed By: #### 5 7021-8 ####[facility] LABCLIA [id number] [place] [address] [place] Basophils/100 WBC (Bld) 0.8 % Normal C [facility] Comment on above: Order Comment: Speci men Type: BLOOD SPECIMENOrdering Facility: [facility] Address: [address] [place] [address] Performed By: #### 5 7021-8 ####[facility] LABCLIA [id number] [place] [address] [place] Differential cell count method Nom (Bld) Auto Normal [facility] Comment on above: Order Comment: Speci men Type: BLOOD SPECIMENOrdering Facility: [facility] Address: [address] [place] [address] Performed By: #### 5 7021-8 ####[facility] LABCLIA [id number] [place] [address] [place] Eosinophils (Bld) [#/Vol] 0.13 10*3/uL Normal <0.46 [facility] Comment on above: Order Comment: Speci men Type: BLOOD SPECIMENOrdering Facility: [facility] Address: [address] [place] [address] Performed By: #### 5 7021-8 ####[facility] LABCLIA [id number] [place] [address] [place] Eosinophils/100 WBC (Bld) 1.4 % Normal [facility] Comment on above: Order Comment: Speci men Type: BLOOD SPECIMENOrdering Facility: [facility] Address: [address] [place] [address] Performed By: #### 5 7021-8 ####[facility] LABIA [id number] [place] [address] [place] Erythrocyte distribution width (RBC) [Ratio] 14.0 % Normal 11.5-15.0 [facility] Comment on above: Order Comment: Speci men Type: BLOOD SPECIMENOrdering Facility: [facility] Address: [address] [place] [address] Performed By: #### 5 7021-8 ####[facility] LABCLIA [id number] [place] [address] [place] Hematocrit (Bld) [Volume fraction] 37.9 % Normal 36.0-46.0 [facility] Comment on above: Order Comment: Speci men Type: BLOOD SPECIMENOrdering Facility: [facility] Address: [address] [place] [address] Performed By: #### 5 7021-8 ####[facility] LABCLIA [id number] [place] [address] [place] Hemoglobin (Bld) [Mass/Vol] 12.3 g/dL Normal 11.5-15.5 [facility] Comment on above: Order Comment: Speci men Type: BLOOD SPECIMENOrdering Facility: [facility] Address: [address] [place] [address] Performed By: #### 5 7021-8 ####[facility] LABCLIA [id number] [place] [address] [place] Immature granulocytes (Bld) [#/Vol] 0.09 10*3/uL Normal <0.10 [facility] Comment on above: Order Comment: Speci men Type: BLOOD SPECIMENOrdering Facility: [facility] Address: [address] [place] [address] Performed By: #### 5 7021-8 ####[facility] LABCLIA [id number] [place] [address] [place] Immature granulocytes/100 WBC (Bld) 1.0 % Normal [facility] Comment on above: Order Comment: Speci men Type: BLOOD SPECIMENOrdering Facility: [facility] Address: [address] [place] [address] Performed By: #### 5 7021-8 ####[facility] LABCLIA [id number] [place] [address] [place] Lymphocytes (Bld) [#/Vol] 1.37 10*3/uL Normal 1.00-4.00 [facility] Comment on above: Order Comment: Speci men Type: BLOOD SPECIMENOrdering Facility: [facility] Address: [address] [place] [address] Performed By: #### 5 7021-8 ####[facility] LABCLIA [id number] [place] [address] [place] Lymphocytes/100 WBC (Bld) 14.9 % Normal [facility] Comment on above: Order Comment: Speci men Type: BLOOD SPECIMENOrdering Facility: [facility] Address: [address] [place] [address] Performed By: #### 5 7021-8 ####[facility] LABIA [id number] [place] [address] [place] MCH (RBC) [Entitic mass] 28.8 pg Normal 26.0-34.0 [facility] Comment on above: Order Comment: Speci men Type: BLOOD SPECIMENOrdering Facility: [facility] Address: [address] [place] [address] Performed By: #### 5 7021-8 ####[facility] LABIA [id number] [place] [address] [place] MCHC (RBC) [Mass/Vol] 32.5 g/dL Normal 30.5-36.0 [facility] Comment on above: Order Comment: Speci men Type: BLOOD SPECIMENOrdering Facility: [facility] Address: [address] [place] [address] Performed By: #### 5 7021-8 ####[facility] [id number] [place] [address] [place] MCV (RBC) [Entitic vol] 88.8 fL Normal 80.0-100.0 C [facility] Comment on above: Order Comment: Speci men Type: BLOOD SPECIMENOrdering Facility: [facility] Address: [address] [place] [address] Performed By: #### 5 7021-8 ####[facility] [id number] [place] [address] [place] Monocytes (Bld) [#/Vol] 0.95 10*3/uL High <0.87 [facility] Comment on above: Order Comment: Speci men Type: BLOOD SPECIMENOrdering Facility: [facility] Address: [address] [place] [address] Performed By: #### 5 7021-8 ####[facility] [id number] [place] [address] [place] Monocytes/100 WBC (Bld) 10.3 % Normal C [facility] Comment on above: Order Comment: Speci men Type: BLOOD SPECIMENOrdering Facility: [facility] Address: [address] [place] [address] Performed By: #### 5 7021-8 ####[facility] LABCLIA [id number] [place] [address] [place] Neutrophils (Bld) [#/Vol] 6.59 10*3/uL Normal 1.45-7.50 [facility] Comment on above: Order Comment: Speci men Type: BLOOD SPECIMENOrdering Facility: [facility] Address: [address] [place] [address] Performed By: #### 5 7021-8 ####[facility] LABCLIA [id number] [place] [address] [place] Neutrophils/100 WBC (Bld) 71.6 % Normal [facility] Comment on above: Order Comment: Speci men Type: BLOOD SPECIMENOrdering Facility: [facility] Address: [address] [place] [address] Performed By: #### 5 7021-8 ####[facility] LABCLIA [id number] [place] [address] [place] Nucleated RBC (Bld) [#/Vol] 10*3/uL Normal <0.01 [facility] Comment on above: Order Comment: Speci men Type: BLOOD SPECIMENOrdering Facility: [facility] Address: [address] [place] [address] Performed By: #### 5 7021-8 ####[facility] LABCLIA [id number] [place] [address] [place] Nucleated RBC/100 WBC (Bld) [Ratio] 0.0 /100 WBC Normal [facility] Comment on above: Order Comment: Speci men Type: BLOOD SPECIMENOrdering Facility: [facility] Address: [address] [place] [address] Performed By: #### 5 7021-8 ####[facility] LABCLIA [id number] [facility] [place] [address] [place] Platelet mean volume (Bld) [Entitic vol] 9.3 fL Normal 9.0-12.7 [facility] Comment on above: Order Comment: Speci men Type: BLOOD SPECIMENOrdering Facility: [facility] Address: [address] [place] [address] Performed By: #### 5 7021-8 ####[facility] LABCLIA [id number] [place] [address] [place] Platelets (Bld) [#/Vol] 340 10*3/uL Normal 150-400 [facility] Comment on above: Order Comment: Speci men Type: BLOOD SPECIMENOrdering Facility: [facility] Address: [address] [place] [address] Performed By: #### 5 7021-8 ####[facility] LABCLIA [id number] [place] [address] [place] RBC (Bld) [#/Vol] 4.27 10*6/uL Normal 3.90-5.20 [facility] Comment on above: Order Comment: Speci men Type: BLOOD SPECIMENOrdering Facility: [facility] Address: [address] [place] [address] Performed By: #### 5 7021-8 ####[facility] LABCLIA [id number] [place] [address] [place] WBC (Bld) [#/Vol] 9.20 10*3/uL Normal 3.70-11.00 [facility] Comment on above: Order Comment: Speci men Type: BLOOD SPECIMENOrdering Facility: [facility] Address: [address] [place] [address] Performed By: #### 5 7021-8 ####[facility] LABCLIA [id number] [facility] [place] [address] [place] CBC W/Diff, Automatedon 12-3 Absolute Lymph 1.44 X10 3/uL Normal 0.83-4.51 [facility] Comment on above: Performed By: #### L 300.3900, L500.2500, L501.4020, L100.0100 ####[facility] [address] [place], [address] Absolute Neut 5.5 X10 3/uL Normal 2.0-7.7 [facility] Comment on above: Performed By: #### L 300.3900, L500.2500, L501.4020, L100.0100 ####[facility] [address] [place], [address] Basophils/100 WBC (Bld) 0.9 % Normal 0-1 [facility] Comment on above: Performed By: #### L 300.3900, L500.2500, L501.4020, L100.0100 ####[facility] [address] [place], [address] Eosinophils/100 WBC (Bld) 1.4 % Normal 0-5 [facility] Comment on above: Performed By: #### L 300.3900, L500.2500, L501.4020, L100.0100 ####[facility] [address] [place], [address] Erythrocyte distribution width (RBC) [Ratio] 14.2 % Normal 11.6-14.6 [facility] Comment on above: Performed By: #### L 300.3900, L500.2500, L501.4020, L100.0100 ####[facility] [address] [place], [address] Hematocrit (Bld) [Volume fraction] 38.6 % Normal 37-47 [facility] Comment on above: Performed By: #### L 300.3900, L500.2500, L501.4020, L100.0100 ####[facility] [address] [place], [address] Hemoglobin (Bld) [Mass/Vol] 12.2 g/dL Normal 12.0-15.0 [facility] Comment on above: Performed By: #### L 300.3900, L500.2500, L501.4020, L100.0100 ####[facility] [address] [place], [address] IG% 0.600 Normal 0.0-0.9 [facility] Comment on above: Result Comment: IG% - Immature Granulocytes (promyelocytes, myelocytes andmetamyelocytes) > 1% indicates that a LEFT SHIFT is Present. Performed By: #### L 300.3900, L500.2500, L501.4020, L100.0100 ####[facility] [address] [place], [address] Lymphocytes/100 WBC (Bld) 18.4 % Low 19-41 [facility] Comment on above: Performed By: #### L 300.3900, L500.2500, L501.4020, L100.0100 ####[facility] [address] [place], [address] MCH (RBC) [Entitic mass] 28.6 pg Normal 27.0-32.0 [facility] Comment on above: Performed By: #### L 300.3900, L500.2500, L501.4020, L100.0100 ####[facility] [address] [place], [address] MCHC (RBC) [Mass/Vol] 31.6 g/dL Low 32-36 [facility] Comment on above: Performed By: #### L 300.3900, L500.2500, L501.4020, L100.0100 ####[facility] [address] [place], [address] MCV (RBC) [Entitic vol] 90.4 fL Normal 81-99 [facility] Comment on above: Performed By: #### L 300.3900, L500.2500, L501.4020, L100.0100 ####[facility] [address] [place], [address] Monocytes/100 WBC (Bld) 8.3 % Normal 0-10 [facility] Comment on above: Performed By: #### L 300.3900, L500.2500, L501.4020, L100.0100 ####[facility] [address] [place], [address] Neutrophils/100 WBC (Bld) 70.4 % High 47-70 [facility] Comment on above: Performed By: #### L 300.3900, L500.2500, L501.4020, L100.0100 ####[facility] [address] [place], [address] Nucleated RBC (Bld) [#/Vol] 0 10*3/uL Normal 0-5 [facility] Comment on above: Performed By: #### L 300.3900, L500.2500, L501.4020, L100.0100 ####[facility] [address] [place], [address] Platelet mean volume (Bld) [Entitic vol] 9.4 fL Normal 6.2-12.0 [facility] Comment on above: Performed By: #### L 300.3900, L500.2500, L501.4020, L100.0100 ####[facility] [address] [place], [address] Platelets (Bld) [#/Vol] 365 10*3/uL Normal 150-450 [facility] Comment on above: Performed By: #### L 300.3900, L500.2500, L501.4020, L100.0100 ####[facility] [address] [place], [address] RBC (Bld) [#/Vol] 4.27 10*6/uL Normal 4.2-5.4 [facility] Comment on above: Performed By: #### L 300.3900, L500.2500, L501.4020, L100.0100 ####[facility] [address] [place], [address] RDW SD 47.3 fl High 35.1-43.9 [facility] Comment on above: Performed By: #### L 300.3900, L500.2500, L501.4020, L100.0100 ####[facility] [address] [place], [address] WBC (Bld) [#/Vol] 7.8 10*3/uL Normal 4.4-11.[address] [facility] Comment on above: Performed By: #### L 300.3900, L500.2500, L501.4020, L100.0100 ####[facility] [address] [place], [address] CK SerPl-cCncon 05-11-2024 CK [Catalytic activity/Vol] 90 U/L Normal 42-196 [facility] Comment on above: Order Comment: Speci men Type: BLOOD SPECIMENOrdering Facility: [facility] Address: [address] [place] [address] Performed By: #### 2 777-1, 41282-8, 2157-6, TSHRF, HSTNT, 28158-5 ####[facility] LABCLIA [id number] [address] [address] [place] CNCRITCRon 05-11-2024 CNCRITCR Critical Care Transport (CCT) Harjit SOLOMON ([id number]) 1935 F Date Time Provider Department 05/11/24 NORMA MOON [facility] During your visit today, we recorded the following information about you: Norma Moon APRN.CNP 05/11/2024 8:04 PM Signed CRITICAL CARE TRANSPORT MEDICAL CONTROL CONSULT NOTE Patient Name: Harjit Solomon Service Date: May 11, 2024 Referring Facility: [facility] Accepting Facility: [facility] MAIN REASON FOR TRANSPORT: higher level neurosurgical care REASON FOR CONSULT: BP management CCT MEDICAL CONTROL CONSULT SUMMARY: History, physical exam findings, and available background patient information from [facility] Transport Nurse were reviewed at the time of consult. Pertinent additional information was reviewed as follows: [facility] transport request log In brief, Harjit Solomon is a 89 year old female with a history, known at time of consult, significant for afib on coumadin who presented to [facility] for evaluation of left arm weakness. CT + for IPH, treated with vitamin K and cardene infusion PLAN: Multiple factors considered including: patient history/condition/tr ajectory/stability, referring and receiving destinations, duration of transport time, medications and therapies available during transport, patient safety, as well as crew capabilities. Orders given for: cardene titration Plan of care and orders confirmed and read back via telephone with [facility] Transport parole board member, David Campos RN SIGNATURE: Norma Moon APRN.CNP Acute Care Nurse Practitioner Critical Care Transport Allergies As of Date: 05/11/2024 Noted Allergy Reaction SUTURES 11/26/2012 9 - Itching ACTONEL (RISEDRONATE SODIUM) 11/06/2007 8 - GI Upset Comments: States had GI bleed ADHES. GQMW-APCH-WUMIKOXROE UM 12/09/2007 BEETS 05/28/2011 2 - Rash Comments: raised injection site when allergy tested [place]PE 12/08/2006 4 - Hives EGGPLANT 12/08/2006 4 - Hives FOSAMAX (ALENDRONATE SODIUM) 11/06/2007 8 - GI Upset Comments: States had GI bleed MOBIC (MELOXICAM) 04/16/2011 14 - Other: See Comments Comments: Edema, HTN MOLD 02/22/2004 4 - Hives NEURONTIN (GABAPENTIN) 03/29/2011 14 - Other: See Comments Comments: muscle spasms PENICILLINS 02/22/2004 PORK 03/26/2011 5 - Intolerance WHEAT GLUTEN 12/08/2006 4 - Hives YEAST, DRIED 03/24/2012 4 - Hives Date Reviewed: 05/11/2024 Reviewed by: Joyce Cisse RN - Fully Assessed Reason for Visit: Critical Care Transport [0308] Prescriptions as of 05/16/2024 - atenolol (TENORMIN) 25 mg tablet Take 1 tablet by mouth once daily. - magnesium oxide (MAG-OX) 400 mg (241.3 mg magnesium) tablet Take 1 tablet by mouth once daily. - rOPINIRole (REQUIP) 0.5 mg tablet Take 1 tablet by mouth every 4 hours. - lidocaine (SALONPAS) 4 % patch Apply 1 Patch as directed once daily. - acetaminophen (TYLENOL) 325 mg tablet 2 tablets by ORAL/FEEDING TUBE route every 4 hours as needed for pain. - aspirin 81 mg chewable tablet Take 1 tablet by mouth once daily. - losartan (COZAAR) 50 mg tablet 1 tablet by ORAL/FEEDING TUBE route once daily. Patient should start on May 17, 2024. - Blood Pressure Test Kit-Large Use as directed for blood pressure monitoring - melatonin 3 mg tablet Take 1 tablet by mouth at bedtime as needed for insomnia. Problem List As Of Date 05/11/2024 Noted Resolved OSTEOPOROSIS NOS [M81.0] 01/30/2005 HYPERTENSION NOS [I10] 03/04/2005 HYPERLIPIDEMIA NEC/NOS [E78.5] 03/04/2005 MULTINODULAR GOITER (NONTOXIC) [E04.2] 03/04/2005 Adjustment disorder with depressed mood [F43.21]03/04/2005 02/19/2012 Insomnia, unspecified [G47.00] 02/11/2007 02/19/2012 NIGHTMARE [MQG8622] 02/11/2007 04/12/2014 LUMBAR RADICULITIS [BGC7439] 02/11/2007 BACKACHE NOS [M54.9] 02/17/2007 MITRAL INSUFFICIENCY [I05.9] 12/09/2007 Incidental lung nodule, > 3mm and < 8mm [R91.1] 12/24/2010 Lumbago [M54.50] 12/27/2010 Sacral insufficiency fracture [M84.48XA] 03/29/2011 NEL (obstructive sleep apnea) [G47.33] 10/16/2011 Personal history of colonic polyps [Z86.0100] 12/31/2011 Other symptoms involving digestive system [R19.*12/31/2011 Abdominal pain, unspecified site [R10.9] 12/31/2011 Mitral valve prolapse [I34.1] Hypertension [I10] Depression [F32.A] 04/12/2014 Hyperparathyroidism [E21.3] 05/28/2012 Pain in joint, shoulder region [M25.519] 06/19/2012 PAF (paroxysmal atrial fibrillation) (HCC) [I48*10/20/2013 Adjustment disorder [F43.20] 04/12/2014 Atrial fibrillation (HCC) [I48.91] 04/22/2014 Intracranial hemorrhage (HCC) [I62.9] 05/11/2024 SAH (subarachnoid hemorrhage) (HCC) [I60.9] 05/11/2024 Hypertensive emergency [I16.1] 05/11/2024 Current use of skilled nursing anticoagulation [Z79.0*05/11/2024 Restless leg syndrome [G25.81] 05/11/2024 Prescriptions ordered this encounter Dis (more content not included)... Normal [facility] CTA HEAD WO/W IVCONon 2023 CTA HEAD WO/W IVCON * * *Final Report* * * DATE OF EXAM: May 11 2024 8:45PM [facility] - CTA HEAD WO/W IVCON / PROCEDURE REASON: Neuro deficit, subacute, progressive or fluctuating * * * * Physician Interpretation * * * * EXAMINATION: CTA NECK W IVCON, CTA HEAD WO/W IVCON HISTORY: Neuro deficit, subacute, progressive or fluctuating TECHNIQUE: Spiral high resolution axial images were obtained through the head, neck and superior mediastinum following bolus administration of intravenous contrast for CT angiography. 3D maximum intensity projection images were created, reviewed and archived . MQ: [id number]_4 Contrast: 80 mL Omnipaque [address] Radiation dose: Integrated Dose-Length Product (DLP) for this visit = 1338 mGy*cm. CT Dose Reduction Employed: No dose reduction techniques were required COMPARISON: OSH head CT 05/11/2024.. RESULT: BRAIN: Evaluation of the individual slices of the CTA demonstrates no evidence of an acute stroke. ASPECT Score = 10 Hemorrhage: There is redemonstration of small volume acute subarachnoid blood products in the right precentral sulcus. NECK: Soft tissues: The left thyroid gland is enlarged with small punctate subcentimeter thyroid nodules. The soft tissue planes are maintained throughout. No evidence of a soft tissue mass in the neck or superior mediastinum. No significant lymphadenopathy is seen. Spine: Alignment is normal. Minimal degenerative changes are present. Lung apices: There are consolidative opacities in the right lower lobe in a dependent distribution, which may represent aspiration/aspiratio n pneumonitis CT ARTERIOGRAM: Extracranial Circulation: Aortic Arch: There is a normal branching pattern from the aortic arch. There is mild calcified atherosclerotic plaque at the aortic arch and origin of branch vessels. There is no significant stenosis in the proximal brachiocephalic vessels. Carotid Stenosis: Right Common: No significant stenosis. Right Internal Carotid Plaque: There is moderate focal stenosis at the origin of the right ICA secondary to calcified atherosclerotic plaque.. Right Internal Carotid Stenosis (% by NASCET Criteria): 51 Left Common: No significant stenosis. Left Internal Carotid Plaque: There is minimal calcified atherosclerotic plaque at the bifurcation.. Left Internal Carotid Stenosis (% by NASCET Criteria): 0 Cervical Vertebral Arteries: Patency: Bilateral Dominance: Codominant Intracranial Circulation: There is moderate focal stenosis of the communicating segment of the right ICA secondary to calcified atherosclerotic plaque. There is mild focal stenosis of the segment of the left ICA, secondary to calcified atherosclerotic plaque. No intracranial arterial stenosis, aneurysm, or other lesion is otherwise identified. An anterior communicating artery is present. . The bilateral posterior communicating arteries are within normal limits. The intracranial internal carotid arteries and the proximal anterior, middle and posterior cerebral arteries otherwise appear normal. The intracranial vertebral arteries and the basilar artery appear normal. The visualized predominantly proximal segments of the bilateral PICAs, AICAs and SCAs appear normal. The visualized dural venous sinuses are patent. IMPRESSION: Redemonstration of small volume acute subarachnoid blood products in the right precentral sulcus. Moderate focal stenosis of the origin of the right ICA up to 51% by NASCET criteria secondary to atherosclerotic disease. Moderate focal stenosis of the communicating segment of the right ICA secondary to calcified atherosclerotic plaque. Mild focal stenosis of the segment of the left ICA, secondary to calcified atherosclerotic plaque. Otherwise no other evidence of hemodynamically significant stenosis, intraluminal filling defect, abrupt vessel occlusion, aneurysm or vascular malformation in the intracranial and extracranial arterial vasculature. Consolidated opacities in the right lower lobe in a dependent distribution, which may represent aspiration/aspiratio n pneumonitis Arterial blood flow was measured to detect acute large vessel occlusion by computer aided detection software: Not Performed. Concordance between software and imaging review: Not Applicable. 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: PSCBrian Transcribe Date/Time: May 11 2024 8:50P Dictated by : LAMONTE MCDONALD MD This examination was interpreted and the report reviewed and electronically signed by: LAMONTE MCDONALD MD on May 11 2024 9:02PM EST [id number] CN Normal [facility] CTA NECK W IVCONon CTA NECK W IVCON * * *Final Report* * * DATE OF EXAM: May 11 2024 8:45PM [facility] [facility] - CTA NECK W IVCON / PROCEDURE REASON: Stroke, follow up * * * * Physician Interpretation * * * * EXAMINATION: CTA NECK W IVCON, CTA HEAD WO/W IVCON HISTORY: Neuro deficit, subacute, progressive or fluctuating TECHNIQUE: Spiral high resolution axial images were obtained through the head, neck and superior mediastinum following bolus administration of intravenous contrast for CT angiography. 3D maximum intensity projection images were created, reviewed and archived . MQ: CTAHN_4 Contrast: 80 mL Omnipaque [address] Radiation dose: Integrated Dose-Length Product (DLP) for this visit = 1338 mGy*cm. CT Dose Reduction Employed: No dose reduction techniques were required COMPARISON: OS head CT 05/11/2024.. RESULT: BRAIN: Evaluation of the individual slices of the CTA demonstrates no evidence of an acute stroke. ASPECT Score = 10 Hemorrhage: There is redemonstration of small volume acute subarachnoid blood products in the right precentral sulcus. NECK: Soft tissues: The left thyroid gland is enlarged with small punctate subcentimeter thyroid nodules. The soft tissue planes are maintained throughout. No evidence of a soft tissue mass in the neck or superior mediastinum. No significant lymphadenopathy is seen. Spine: Alignment is normal. Minimal degenerative changes are present. Lung apices: There are consolidative opacities in the right lower lobe in a dependent distribution, which may represent aspiration/aspiratio n pneumonitis CT ARTERIOGRAM: Extracranial Circulation: Aortic Arch: There is a normal branching pattern from the aortic arch. There is mild calcified atherosclerotic plaque at the aortic arch and origin of branch vessels. There is no significant stenosis in the proximal brachiocephalic vessels. Carotid Stenosis: Right Common: No significant stenosis. Right Internal Carotid Plaque: There is moderate focal stenosis at the origin of the right ICA secondary to calcified atherosclerotic plaque.. Right Internal Carotid Stenosis (% by NASCET Criteria): 51 Left Common: No significant stenosis. Left Internal Carotid Plaque: There is minimal calcified atherosclerotic plaque at the bifurcation.. Left Internal Carotid Stenosis (% by NASCET Criteria): 0 Cervical Vertebral Arteries: Patency: Bilateral Dominance: Codominant Intracranial Circulation: There is moderate focal stenosis of the communicating segment of the right ICA secondary to calcified atherosclerotic plaque. There is mild focal stenosis of the segment of the left ICA, secondary to calcified atherosclerotic plaque. No intracranial arterial stenosis, aneurysm, or other lesion is otherwise identified. An anterior communicating artery is present. . The bilateral posterior communicating arteries are within normal limits. The intracranial internal carotid arteries and the proximal anterior, middle and posterior cerebral arteries otherwise appear normal. The intracranial vertebral arteries and the basilar artery appear normal. The visualized predominantly proximal segments of the bilateral PICAs, AICAs and SCAs appear normal. The visualized dural venous sinuses are patent. IMPRESSION: Redemonstration of small volume acute subarachnoid blood products in the right precentral sulcus. Moderate focal stenosis of the origin of the right ICA up to 51% by NASCET criteria secondary to atherosclerotic disease. Moderate focal stenosis of the communicating segment of the right ICA secondary to calcified atherosclerotic plaque. Mild focal stenosis of the segment of the left ICA, secondary to calcified atherosclerotic plaque. Otherwise no other evidence of hemodynamically significant stenosis, intraluminal filling defect, abrupt vessel occlusion, aneurysm or vascular malformation in the intracranial and extracranial arterial vasculature. Consolidated opacities in the right lower lobe in a dependent distribution, which may represent aspiration/aspiratio n pneumonitis Arterial blood flow was measured to detect acute large vessel occlusion by computer aided detection software: Not Performed. Concordance between software and imaging review: Not Applicable. 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: CLINT Transcribe Date/Time: May 11 2024 8:50P Dictated by : LAMONTE MCDONALD MD This examination was interpreted and the report reviewed and electronically signed by: LAMONTE MCDONALD MD on May 11 2024 9:02PM EST [id number] CN Normal [facility] Calcium [Mass/Vol]Ordered By : Tylor Hendrickson on 05-11-2024 Serum or plasma calcium measurement (mass/volume) 9.4 mg/dL 8.5-10.1 [facility] Calcium.ionized [Moles/Vol]o n 05-11-2024 Calcium.ionized (Bld) [Mass/Vol] 1.17 mmol/L Normal 1.08-1.30 [facility] Comment on above: Order Comment: Speci men Type: BLOOD SPECIMENOrdering Facility: [facility] Address: [address] [place] [address] Performed By: #### 1 995-0 ####[facility] LABCLIA [id number] [place] [address] [place] Calcium.ionized adjusted to pH 7.4 (Bld) [Moles/Vol] 1.19 mmol/L Normal 1.08-1.30 [facility] Comment on above: Order Comment: Speci men Type: BLOOD SPECIMENOrdering Facility: [facility] Address: [address] [place] [address] Performed By: #### 1 995-0 ####[facility] LABCLIA [id number] [place] [address] [place] Carbon dioxide measurementOr dered By: Tylor Hendrickson on 05-11-2024 Carbon dioxide measurement 29.0 mmol/L 21.0-32.0 [facility] Chloride measurementOrdered By: Tylor Hendrickson on 05-11-2024 Chloride measurement 100 mmol/L 98-107 [facility] Clarity (U)Ordered By: Tylor Hendrickson on 05-11-2024 Urine clarity Clear Clear [facility] Color (U)Ordered By: Tylor suárez on 05-11-2024 Urine color determination Straw Yellow [facility] Comprehensive metabolic 2000 panelon 05-11-2024 Albumin [Mass/Vol] 2.8 g/dL Low 3.9-4.9 [facility] Comment on above: Order Comment: Speci men Type: BLOOD SPECIMENOrdering Facility: [facility] Address: [address] [place] [address] Result Comment: Resu lt rechecked. Performed By: #### 2 777-1, 00751-3, 2156-6, TSHRF, HSTNT, ####[facility] LABIA [id number] [place] [address] [place] ALP [Catalytic activity/Vol] 51 U/L Normal 34-123 [facility] Comment on above: Order Comment: Speci men Type: BLOOD SPECIMENOrdering Facility: [facility] Address: [address] [place] [address] Performed By: #### 2 777-1, 92097-0, 6, TSHRF, HSTNT, ####[facility] LABIA [id number] [place] [address] [place] ALT [Catalytic activity/Vol] 7 U/L Normal 7-38 [facility] Comment on above: Order Comment: Speci men Type: BLOOD SPECIMENOrdering Facility: [facility] Address: [address] [place] [address] Performed By: #### 2 777-1, 73894-9, 6, TSHRF, HSTNT, ####[facility] LABIA [id number] [place] [id number] [place] Anion gap [Moles/Vol] 12 mmol/L Normal 8-15 [facility] Comment on above: Order Comment: Speci men Type: BLOOD SPECIMENOrdering Facility: [facility] Address: [address] [place] [address] Performed By: #### 2 777-1, 11264-9, 2156-6, TSHRF, HSTNT, ####[facility] LABCLIA [id number] [address] [address] [place] AST [Catalytic activity/Vol] 15 U/L Normal 13-35 [facility] Comment on above: Order Comment: Speci men Type: BLOOD SPECIMENOrdering Facility: [facility] Address: [address] [place] [address] Performed By: #### 2 777-1, 90911-2, 2156-10, TSHRF, HSTNT, ####[facility] LABCLIA [id number] [address] [address] [place] Bilirubin [Mass/Vol] 0.4 mg/dL Normal 0.2-1.3 [facility] Comment on above: Order Comment: Speci men Type: BLOOD SPECIMENOrdering Facility: [facility] Address: [address] [place] [address] Performed By: #### 2 777-1, 63233-4, 2156-10, TSHRF, HSTNT, ####[facility] LABCLIA [id number] [place] [id number] [place] Calcium [Mass/Vol] 7.0 mg/dL Low 8.5-10.2 [facility] Comment on above: Order Comment: Speci men Type: BLOOD SPECIMENOrdering Facility: [facility] Address: [address] [place] [address] Result Comment: Resu lt rechecked. Performed By: #### 2 777-1, 58596-9, 2156-10, TSHRF, HSTNT, ####[facility] LABCLIA [id number] [place] [id number] [place] Chloride [Moles/Vol] 107 mmol/L Normal 98-107 [facility] Comment on above: Order Comment: Speci men Type: BLOOD SPECIMENOrdering Facility: [facility] Address: [address] [place] [address] Performed By: #### 2 777-1, 63516-2, 6, TSHRF, HSTNT, ####[facility] LABIA [id number] [address] [address] [place] CO2 [Moles/Vol] 20 mmol/L Low 22-30 [facility] Comment on above: Order Comment: Speci men Type: BLOOD SPECIMENOrdering Facility: [facility] Address: [address] [place] [address] Performed By: #### 2 777-1, 31406-4, 2156-10, TSHRF, HSTNT, ####[facility] LABIA [id number] [place] [id number] [place] Creatinine [Mass/Vol] 0.62 mg/dL Normal 0.58-0.96 [facility] Comment on above: Order Comment: Speci men Type: BLOOD SPECIMENOrdering Facility: [facility] Address: [address] [place] [address] Performed By: #### 2 777-1, 83311-5, 2156-10, TSHRF, HSTNT, ####[facility] LAB[facility] [id number] [place] [id number] [place] Creatinine and Glomerular filtration rate.predicted panel (S/P/Bld) 86 mL/min/1.73m??? Normal >=60 [facility] Comment on above: Order Comment: Speci men Type: BLOOD SPECIMENOrdering Facility: [facility] Address: [address] [place] [address] Result Comment: Michael mated Glomerular Filtration Rate (eGFR) is calculated using the 2020 CKD-EPI creatinine equation. This equation utilizes serum creatinine, sex, and age as parameters. The creatinine assay has traceable calibration to isotope dilution-mass spectrometry. Refer to KDIGO guidelines for clinical interpretation. In patients with unstable renal function, e.g. those with acute kidney injury, the eGFR may not accurately reflect actual GFR. Performed By: #### 2 777-1, 69141-3, 2156-10, TSHRF, HSTNT, ####[facility] LABCLIA [id number] [address] [address] [place] Glucose [Mass/Vol] 109 mg/dL High 74-99 [facility] Comment on above: Order Comment: Speci men Type: BLOOD SPECIMENOrdering Facility: [facility] Address: [address] [place] [address] Result Comment: The [place] [employer] (ADA) provides guidance for cutoff values for fasting glucose and random glucose. The ADA defines fasting as no caloric intake for at least 8 hours. Fasting plasma glucose results between 100 to 125 mg/dL indicate increased risk for diabetes (prediabetes). Fasting plasma glucose results greater than or equal to 126 mg/dL meet the criteria for diagnosis of diabetes. In the absence of unequivocal hyperglycemia, results should be confirmed by repeat testing. In a patient with classic symptoms of hyperglycemia or hyperglycemic crisis, random plasma glucose results greater than or equal to 200 mg/dL meet the criteria for diagnosis of diabetes. Reference: Standards of Medical Care in Diabetes 2016, [place] [employer]. Diabetes Care. 2016.39(Suppl 1). Performed By: #### 2 777-1, , 2156-10, TSHRF, HSTNT, ####[facility] LABCLIA [id number] [address] [address] [place] Potassium [Moles/Vol] 3.3 mmol/L Low 3.7-5.1 [facility] Comment on above: Order Comment: Speci men Type: BLOOD SPECIMENOrdering Facility: [facility] Address: [address] [place] [address] Performed By: #### 2 777-1, , 2156-10, TSHRF, HSTNT, ####[facility] LABCLIA [id number] [address] [address] [place] Protein [Mass/Vol] 5.2 g/dL Low 6.3-8.0 [facility] Comment on above: Order Comment: Speci men Type: BLOOD SPECIMENOrdering Facility: [facility] Address: [address] [place] [address] Result Comment: Resu lt rechecked. Performed By: #### 2 777-1, 31894-5, 2156-6, TSHRF, HSTNT, ####[facility] LABCLIA [id number] [facility] [place] [address] [place] Sodium [Moles/Vol] 139 mmol/L Normal 136-144 [facility] Comment on above: Order Comment: Speci men Type: BLOOD SPECIMENOrdering Facility: [facility] Address: [address] [place] [address] Performed By: #### 2 777-1, 30964-2, 6, TSHRF, HSTNT, ####[facility] LABCLIA [id number] [place] [address] [place] Urea nitrogen [Mass/Vol] 22 mg/dL High 7-21 [facility] Comment on above: Order Comment: Speci men Type: BLOOD SPECIMENOrdering Facility: [facility] Address: [address] [place] [address] Performed By: #### 2 777-1, 91726-4, 6, TSHRF, HSTNT, ####[facility] LABCLIA [id number] [place] [address] [place] Albumin [Mass/Vol] 4.1 g/dL Normal 3.9-4.9 [facility] Comment on above: Order Comment: Speci men Type: BLOOD SPECIMENOrdering Facility: [facility] Address: [address] [place] [address] Performed By: #### 2 4323-8, 2777-1, ####[facility] LABCLIA [id number] [place] [address] [place] ALP [Catalytic activity/Vol] 75 U/L Normal 34-123 [facility] Comment on above: Order Comment: Speci men Type: BLOOD SPECIMENOrdering Facility: [facility] Address: [address] [place] [address] Performed By: #### 2 4323-8, 2777-1, ####[facility] LABCLIA [id number] [place] [address] [place] ALT [Catalytic activity/Vol] 9 U/L Normal 7-38 [facility] Comment on above: Order Comment: Speci men Type: BLOOD SPECIMENOrdering Facility: [facility] Address: [address] [place] [address] Performed By: #### 2 4323-8, 27711-09, ####[facility] LABCLIA [id number] [place] [address] [place] Anion gap [Moles/Vol] 12 mmol/L Normal 8-15 [facility] Comment on above: Order Comment: Speci men Type: BLOOD SPECIMENOrdering Facility: [facility] Address: [address] [place] [address] Performed By: #### 2 4323-8, 27711-09, ####[facility] LABCLIA [id number] [place] [address] [place] AST [Catalytic activity/Vol] 19 U/L Normal 13-35 [facility] Comment on above: Order Comment: Speci men Type: BLOOD SPECIMENOrdering Facility: [facility] Address: [address] [place] [address] Performed By: #### 2 4323-8, 27711-09, ####[facility] LABCLIA [id number] [place] [id number] [place] Bilirubin [Mass/Vol] 0.5 mg/dL Normal 0.2-1.3 [facility] Comment on above: Order Comment: Speci men Type: BLOOD SPECIMENOrdering Facility: [facility] Address: [address] [place] [address] Performed By: #### 2 4323-8, 2776-05, ####[facility] LABCLIA [id number] [facility] [place] [address] [place] Calcium [Mass/Vol] 9.5 mg/dL Normal 8.5-10.2 [facility] Comment on above: Order Comment: Speci men Type: BLOOD SPECIMENOrdering Facility: [facility] Address: [address] [place] [address] Performed By: #### 2 4323-8, 2776-05, ####[facility] LABCLIA [id number] [facility] [address] [place] Chloride [Moles/Vol] 100 mmol/L Normal 98-107 [facility] Comment on above: Order Comment: Speci men Type: BLOOD SPECIMENOrdering Facility: [facility] Address: [address] [place] [address] Performed By: #### 2 4323-8, 2776-05, ####[facility] LABCLIA [id number] [facility] AV[facility]UETUST[facility] [place] [id number] [place] CO2 [Moles/Vol] 30 mmol/L Normal 22-30 [facility] Comment on above: Order Comment: Speci men Type: BLOOD SPECIMENOrdering Facility: [facility] Address: [address] [place] [address] Performed By: #### 2 4323-8, 2776-05, ####[facility] LABCLIA [id number] [facility] AVENUETUSTIN RE[facility]IL[facility] HOSPITALK [address] [address] [place] Creatinine [Mass/Vol] 0.76 mg/dL Normal 0.58-0.96 [facility] Comment on above: Order Comment: Speci men Type: BLOOD SPECIMENOrdering Facility: [facility] Address: [address] [place] [address] Performed By: #### 2 4323-8, 2777-1, 36328-7 ####[facility] LABIA [id number] [place] [address] [place] Creatinine and Glomerular filtration rate.predicted panel (S/P/Bld) 75 mL/min/1.73m??? Normal >=60 [facility] Comment on above: Order Comment: Christopher hurd Type: BLOOD SPECIMENOrdering Facility: [facility] Address: [address] [place] [address] Result Comment: Michael mated Glomerular Filtration Rate (eGFR) is calculated using the 2020 CKD-EPI creatinine equation. This equation utilizes serum creatinine, sex, and age as parameters. The creatinine assay has traceable calibration to isotope dilution-mass spectrometry. Refer to KDIGO guidelines for clinical interpretation. In patients with unstable renal function, e.g. those with acute kidney injury, the eGFR may not accurately reflect actual GFR. Performed By: #### 2 4323-8, 2777-1, 79637-9 ####[facility] LABIA [id number] [place] [address] [place] Glucose [Mass/Vol] 147 mg/dL High 74-99 [facility] Comment on above: Order Comment: Christopher hurd Type: BLOOD SPECIMENOrdering Facility: [facility] Address: [address] [place] [address] Result Comment: The [place] Diabetes [employer] (ADA) provides guidance for cutoff values for fasting glucose and random glucose. The ADA defines fasting as no caloric intake for at least 8 hours. Fasting plasma glucose results between 100 to 125 mg/dL indicate increased risk for diabetes (prediabetes). Fasting plasma glucose results greater than or equal to 126 mg/dL meet the criteria for diagnosis of diabetes. In the absence of unequivocal hyperglycemia, results should be confirmed by repeat testing. In a patient with classic symptoms of hyperglycemia or hyperglycemic crisis, random plasma glucose results greater than or equal to 200 mg/dL meet the criteria for diagnosis of diabetes. Reference: Standards of Medical Care in Diabetes 2016, [place] [employer]. Diabetes Care. 2016.39(Suppl 1). Performed By: #### 2 4323-8, 2776-05, ####[facility] LABCLIA [id number] [address] [address] [place] Potassium [Moles/Vol] 3.8 mmol/L Normal 3.7-5.1 [facility] Comment on above: Order Comment: Speci men Type: BLOOD SPECIMENOrdering Facility: [facility] Address: [address] [place] [address] Performed By: #### 2 4323-8, 2776-05, ####[facility] LABCLIA [id number] [address] [address] [place] Protein [Mass/Vol] 7.2 g/dL Normal 6.3-8.0 [facility] Comment on above: Order Comment: Speci men Type: BLOOD SPECIMENOrdering Facility: [facility] Address: [address] [place] [address] Performed By: #### 2 4323-8, 2776-05, ####[facility] LABCLIA [id number] [address] [address] [place] Sodium [Moles/Vol] 142 mmol/L Normal 136-144 [facility] Comment on above: Order Comment: Speci men Type: BLOOD SPECIMENOrdering Facility: [facility] Address: [address] [place] [address] Performed By: #### 2 4323-8, 2776-05, ####[facility] LABCLIA [id number] [address] [address] [place] Urea nitrogen [Mass/Vol] 25 mg/dL High 7-21 [facility] Comment on above: Order Comment: Speci men Type: BLOOD SPECIMENOrdering Facility: [facility] Address: [address] [place] [address] Performed By: #### 2 4323-8, 2777-1, 07379-0 ####[facility] LABCLIA [id number] [facility] [place] [address] [place] Creatinine [Mass/Vol]Ordered By: Tylor Hendrickson on 05-11-2024 Serum or plasma creatinine measurement (mass/volume) 0.96 mg/dL 0.55-1.02 [facility] Emergency Department Summary on 05-11-2024 Emergency Department Summary Normal [facility] Eosinophil percentageOrdered By: Tylor Hendrickson on 05-11-2024 Eosinophil percentage 1.4 % 0-5 [facility] Erythrocyte distribution wid th (RBC) [Ratio]Ordered By: Tylor Hendrickson on 05-11-2024 Erythrocyte distribution width ratio 14.2 % 11.6-14.6 [facility] Erythrocyte distribution wid th standard deviationOrdered By: Tylor Hendrickson on 05-11-2024 Erythrocyte distribution width standard deviation 47.3 fl High 35.1-43.9 [facility] Estimated glomerular filtrat ion rate (GFR) AmericanOrdered By: Tylor Hendrickson on 05-11-2024 Estimated glomerular filtration rate (GFR) 70 mL/min >60 [facility] Estimation of creatinine mary ellen aranceOrdered By: Tylor Hendrickson on 05-11-2024 Estimation of creatinine clearance 37.64 ml/min [facility] Glomerular filtration rate ( GFR) estimationOrdered By: Tylor Hendrickson on 05-11-2024 Glomerular filtration rate (GFR) estimation 58 mL/min Low >60 [facility] Glucose measurementOrdered B y: Tylor Hendrickson on 05-11-2024 Glucose measurement 124 mg/dL High 74-106 [facility] Glucose measurement at bedsi deOrdered By: Tylor Hendrickson on 05-11-2024 Glucose measurement at bedside 113 mg/dL High 74-106 [facility] HIGH SENSITIVITY TROPONIN To n 05-11-2024 Troponin T.cardiac High sensitivity method [Mass/Vol] 19 ng/L High <12 [facility] Comment on above: Order Comment: Speci men Type: BLOOD SPECIMENOrdering Facility: [facility] Address: [address] [id number] Performed By: #### 2 777-1, 45108-9, 2157-6, TSHRF, TNT, 07527-8 ####[facility] LABCLIA [id number] [facility] [address] [id number] [place] HISTORY PHYSICALon HISTORY PHYSICAL HNO ID: [id number] Author: DUGLAS KIM MD Service: Neurosurgery Author Type: Resident Type: H&P Filed: 05/15/2024 02:17 Note Text: Attestation signed by Duglas Kim MD at 05/15/2024 2:17 AM Discussed. Duglas Kim MD NEUROSURGERY HISTORY AND PHYSICAL EXAMINATION PLEASE DO NOT REMOVE FROM THE CHART OR MODIFY PRINTED COPY Patient Name: Harjit Solomon CHIEF COMPLAINT: LUE weakness and tingling HPI: 89 year old RHW w/PMH HTN, HLD, pAF on warfarin, NEL, osteoporosis, secondary hypothyroidism transferred from [place] ED May 11, 2024 with RF cortical SAH/ICH (1cc). Patient LKW 12/ AM when she developed LUE finger tingling and weakness lasting a few minutes before self-resolving. Notes that the night prior should had a sensation of blacking out. Denies TORO, N/V, numbness/tingling, weakness, changes in vision/hearing, new episodes of bowel/bladder incontinence, fever/chills, hx of seizures/migraines, any recent traumas/falls, chest pain/SOB, and abdominal pain. Presented to ED for sx. CTH demonstrates focus of cortical SAH/ICH appearing along R precentral gyrus. SBP in 200s treated with cardene. Transferred to [facility] for further care. Given Kcentra on arrival to NICU. She states she was recently diagnosed with retinal hemorrhage and had a CUS completed showing carotid stenosis (imaging not present in chart). Non-smoker, does not drink alcohol. Mother from cerebral aneurysm. No history of cardiac infections or artificial valves. Risk factors: HTN, AF, warfarin use (last taken 05/11) Premorbid MODIFIED LUCINA SCORE: 0 = No symptoms at all PAST MEDICAL HISTORY: PAST MEDICAL HISTORY Diagnosis Date Abdominal pain, unspecified site Abdominal pain, unspecified site Depression Dyslipidemia Flatulence, eructation, and gas pain Fracture L shoulder (2007), Sacral stress fracture; R wrist Hypertension Mitral valve prolapse Obstructive sleep apnea Osteoporosis, unspecified 01/30/2005 Other symptoms involving digestive system(787.99) PAF (paroxysmal atrial fibrillation) ([facility]) 10/20/2013 Thyroid disorder PAST SURGICAL HISTORY: PAST SURGICAL HISTORY Procedure Laterality Date APPENDECTOMY CHOLECYSTECTOMY COLONOSCOPY FLX DX W/COLLJ SPEC WHEN PFRMD 06-12-06 Repeat in COLONOSCOPY FLX DX W/COLLJ SPEC WHEN PFRMD 12/31/2011 Colonoscopy ESOPHAGOGASTRODUODEN OSCOPY TRANSORAL DIAGNOSTIC 12/31/2011 EGD PAST SURGICAL HISTORY OF age 20 gland removed from under chin THYROID LEFT FINE NEEDLE ASPIRATION 12/30/07 U/S FNA Bilateral thyroid nodules THYROIDECTOMY SUBTOTAL/PARTIAL 05/2012 partial TONSILLECTOMY PRIMARY/SECONDARY Tonsillectomy FAMILY HISTORY: FAMILY HISTORY Problem Relation Age of Onset Heart Mother cerebral anureysm Osteoporosis Mother Diabetes Brother diabetes also in mother's side SOCIAL HISTORY: Social History Tobacco Use Smoking status: Never Smokeless tobacco: Never Substance Use Topics Alcohol use: No Drug use: No MEDICATIONS: losartan (COZAAR) 100 mg tabletTake 1 tablet by mouth once daily.Disp: 90 tabletRfl: 3 warfarin (COUMADIN) 4 mg tabletTake 4 mg by mouth daily as directed. one tablet five day per week and 1.5 two days per weekDisp: Rfl: aspirin, enteric coated (ASPIRIN, ENTERIC COATED) 81 mg EC tabletTake 81 mg by mouth once daily.Disp: Rfl: atenolol (TENORMIN) 25 mg tabletTake 50 mg by mouth once daily.Disp: Rfl: CPAPAutoPAP 5/15 cmH2O, suitable mask, humidity, filters. Lifetime supplies. Dx: 327.23. Fax compliance rpt to Dr. Escoto in 4 weeks.Disp: 1 DeviceRfl: 0 calcium carbonate 500 mg ChewTake 1 tablet by mouth PRN(NO DISPENSE) (take 1 tums every hour as needed for mouth or hand numbness or tingling, continue until symptoms improve).Disp: Rfl: 0 Calcium Carbonate-Vitamin D3 500 mg(1,250mg) -600 unit ChewTake 1 tablet by mouth three times daily.Disp: Rfl: 0 SIMETHICONE (GAS-X ORAL)Take by mouth. USES SOFT GEL TAB. NEEDED. Disp: Rfl: acetaminophen(TYLENO L EXTRA STRENGTH 500 MG TAB)as neededDisp: Rfl: 0 Current Facility-Administere d Medications Medication Dose Route Frequency NaCl 0.9% iv flush bag 20 mL INTRAVENOUS PRN acetaminophen 650 mg tab(s) (TYLENOL) 650 mg ORAL/FEEDING TUBE q 4 H PRN labetalol 10-20 mg injection syringe (NORMODYNE) 10-20 mg INTRAVENOUS q 15 MIN PRN niCARdipine iv infusion 40 mg in NaCl (iso-osmotic) 200 mL (CARDENE) 2.5-15 mg/hr INTRAVENOUS CONTINUOUS senna-docusate 8.6-50 mg 1 tablet (SENNA-S) 1 tablet ORAL/FEEDING TUBE BID ondansetron (PF) 4 mg injection (ZOFRAN) 4 mg INTRAVENOUS q 6 H PRN potassium chloride 40 mEq oral powder (KLOR-CON) 40 mEq ORAL/FEEDING TUBE q 2 H PRN magnesium sulfate iv piggyback in sterile water 2 g 50 mL 2 g INTRAVENOUS PRN phosph (more content not included)... Normal [facility] HISTORY PHYSICAL HNO ID: [id number] Author: CARI WONG MD, PhD Service: Neurology Stroke Author Type: Physician Type: H&P Filed: 05/12/2024 14:45 Note Text: NEURO STROKE HANDP SERVICE DATE: 05/11/2024 SERVICE TIME: 7:28 PM PCP: No primary care provider on file. REASON FOR STROKE EVALUATION: ICH Subjective HPI: Harjit Solomon is a 89 yo F w/ PMH HTN, HLD, pAF on warfarin, NEL on CPAP, osteoporosis, secondary hypothyroidism transferred from [place] ED May 11, 2024 for ICH monitoring. CTH at OSH showed cortical SAH appearing along R precentral gyrus. SBP >200 on arrival to ED, started on nicardipine and transferred to NICU for continuation of care. LKW 05/11 this AM (unclear the time). This morning, patient developed transient weakness and numbness of the right upper extremity that resolved after seconds. Not associated w/ any headache, vision changes, weakness elsewhere. Lifetime non-smoker, denies any alcohol use or illicit drug use. Adherent to all of her home medications. Presented to ED where CTH demonstrated right frontal ICH/possible associated SAH. INR 2.0, reversed with Kcentra. Transferred to NICU for further management. On initial evaluation, NIHSS 2 for bilateral mild drift in the legs (swollen legs, weakness in legs after spinal surgery L3-L4 last year). Otherwise no deficits. Unclear if taking ASA at home. Last dose warfarin 3mg 05/10 at night, INR 05/11 2.0. For HLD, last LDL-C data in chart 2013. No statins seen on chart review Latest Reference Range AND Units 07/10/12 08:30 04/28/13 08:15 04/09/14 09:09 LDL Cholesterol 60 - 129 mg/dL 130 (H) 140 (H) 169 (H) (H): Data is abnormally high Has had history of uncontrolled BP from outpatient appointments, on atenolol 25 mg qdaily, losartan 100 mg qdaily. Takes her BP at home, usually readings around 140's/75's. Has had recent in family (daughter's ) so has not been checking recently. Last 14 BP Last 14 Encounter BP Readings: Date: BP: 05/11/2024 183/77 06/14/2014 160/80 05/13/2014 168/65[ (from Extended Vitals)[ 04/22/2014 187/77[BP SRIDHAR (from Extended Vitals)[ 04/12/2014 128/78 10/23/2013 126/74 10/20/2013 138/70[left forarm[ 09/21/2013 138/60 08/03/2013 164/78 07/19/2013 160/80 07/15/2013 140/78 06/25/2013 112/70 06/09/2013 177/68[BP SRIDHAR (from Extended Vitals)[ 05/03/2013 155/57[BP sridhar[ At baseline, lives at home by herself since 2010. Independent, uses a walker for R>L BLE weakness, which has been present since her back surgery in 2022 (Per patient, cement placed between L3-L4) Pre-admission Pre-morbid mRS: Premorbid Modified Lucina Score: 0 - No symptoms at all PAST MEDICAL HISTORY Diagnosis Date Abdominal pain, unspecified site Abdominal pain, unspecified site Depression Dyslipidemia Flatulence, eructation, and gas pain Fracture L shoulder (2007), Sacral stress fracture; R wrist Hypertension Mitral valve prolapse Obstructive sleep apnea Osteoporosis, unspecified 01/30/2005 Other symptoms involving digestive system(787.99) PAF (paroxysmal atrial fibrillation) ([facility]) 10/20/2013 Thyroid disorder PAST SURGICAL HISTORY Procedure Laterality Date APPENDECTOMY CHOLECYSTECTOMY COLONOSCOPY FLX DX W/COLLJ SPEC WHEN PFRMD 06-12-06 Repeat in COLONOSCOPY FLX DX W/COLLJ SPEC WHEN PFRMD 12/31/2011 Colonoscopy ESOPHAGOGASTRODUODEN OSCOPY TRANSORAL DIAGNOSTIC 12/31/2011 EGD PAST SURGICAL HISTORY OF age 20 gland removed from under chin THYROID LEFT FINE NEEDLE ASPIRATION 12/30/07 U/S FNA Bilateral thyroid nodules THYROIDECTOMY SUBTOTAL/PARTIAL 05/2012 partial TONSILLECTOMY PRIMARY/SECONDARY Tonsillectomy Social History Tobacco Use Smoking status: Never Smokeless tobacco: Never Substance Use Topics Alcohol use: No Drug use: No FAMILY HISTORY Problem Relation Age of Onset Heart Mother cerebral anureysm Osteoporosis Mother Diabetes Brother diabetes also in mother's side ALLERGIES Allergen Reactions Sutures Itching Actonel [Risedronat* GI Upset States had GI bleed Adhes. Jhqg-Nvet-Ca* Beets Rash raised injection site when allergy tested Cantaloupe Hives Eggplant Hives Fosamax [Alendronat* GI Upset States had GI bleed Mobic [Meloxicam] Other: See Comments Edema, HTN Mold Hives Neurontin [Gabapent* Other: See Comments muscle spasms Penicillins Pork Intolerance Wheat Gluten Hives Yeast, Dried Hives MEDICATION Pre-admission losartan (COZAAR) 100 mg tablet, Take 1 tablet by mouth once daily., Disp: 90 tablet, Rfl: 3, Unknown warfarin (COUMADIN) 4 mg tablet, Take 4 mg by mouth daily as directed. one tablet five day per week and 1.5 two days per week, Disp: , Rfl: , Unknown aspirin, enteric coated (ASPIRIN, ENTERIC COATED) 81 mg EC tablet, Take 81 mg by mouth once daily., Disp: , Rfl: , Unknown atenolol (TENORMIN) 25 mg tablet, Take 50 mg by mouth once daily., Disp: , Rfl: , Unknown (more content not included)... Normal [facility] HISTORY PHYSICAL HNO ID: [id number] Author: CLINT BERMUDEZ APRN.PERSONAL INJURY SPECIALIST Service: Neurology ICU Author Type: Nurse Practitioner Type: H&P Filed: 05/11/2024 18:46 Note Text: SERVICE DATE: 05/11/2024 SERVICE TIME: 6:45 PM NEUROLOGICAL INTENSIVE CARE UNIT HISTORY AND PHYSICAL (STROKE CARE PATH) REASON FOR STROKE EVALUATION: Numbness and Tingling REASON FOR NEUROLOGICAL ICU ADMISSION: SAH Stroke Mechanism: METRICS: Pre-admission: = Baseline Functional Status (i.e. ADL's, Ambulatory Status, Cognitive Issues): MRS 3- walker for ambulation Subjective HPI: 89/f w/PMH HTN, HLD, pAF on warfarin, NEL, osteoporosis, secondary hypothyroidism transferred from [place] ED May 11, 2024 with focus of cortical SAH appearing along R precentral gyrus HH2mF3 ( left hand arm numbness tingling). SBP >200 on arrival to ED, started on nicardipine and transferred to NICU for continuation of care. PAST MEDICAL HISTORY Diagnosis Date Abdominal pain, unspecified site Abdominal pain, unspecified site Depression Dyslipidemia Flatulence, eructation, and gas pain Fracture L shoulder (2007), Sacral stress fracture; R wrist Hypertension Mitral valve prolapse Obstructive sleep apnea Osteoporosis, unspecified 01/30/2005 Other symptoms involving digestive system(787.99) PAF (paroxysmal atrial fibrillation) (HCC) 10/20/2013 Thyroid disorder PAST SURGICAL HISTORY Procedure Laterality Date APPENDECTOMY CHOLECYSTECTOMY COLONOSCOPY FLX DX W/COLLJ SPEC WHEN PFRMD 06-12-06 Repeat in COLONOSCOPY FLX DX W/COLLJ SPEC WHEN PFRMD 12/31/2011 Colonoscopy ESOPHAGOGASTRODUODEN OSCOPY TRANSORAL DIAGNOSTIC 12/31/2011 EGD PAST SURGICAL HISTORY OF age 20 gland removed from under chin THYROID LEFT FINE NEEDLE ASPIRATION 12/30/07 U/S FNA Bilateral thyroid nodules THYROIDECTOMY SUBTOTAL/PARTIAL 05/2012 partial TONSILLECTOMY PRIMARY/SECONDARY Tonsillectomy FAMILY HISTORY Problem Relation Age of Onset Heart Mother cerebral anureysm Osteoporosis Mother Diabetes Brother diabetes also in mother's side Social History Tobacco Use Smoking status: Never Smokeless tobacco: Never Substance Use Topics Alcohol use: No Drug use: No MEDICATIONS Prior to Admission losartan (COZAAR) 100 mg tablet, Take 1 tablet by mouth once daily., Disp: 90 tablet, Rfl: 3, Unknown warfarin (COUMADIN) 4 mg tablet, Take 4 mg by mouth daily as directed. one tablet five day per week and 1.5 two days per week, Disp: , Rfl: , Unknown aspirin, enteric coated (ASPIRIN, ENTERIC COATED) 81 mg EC tablet, Take 81 mg by mouth once daily., Disp: , Rfl: , Unknown atenolol (TENORMIN) 25 mg tablet, Take 50 mg by mouth once daily., Disp: , Rfl: , Unknown CPAP, AutoPAP 5/15 cmH2O, suitable mask, humidity, filters. Lifetime supplies. Dx: 327.23. Fax compliance rpt to Dr. Escoto in 4 weeks., Disp: 1 Device, Rfl: 0, Unknown calcium carbonate 500 mg Chew, Take 1 tablet by mouth PRN(NO DISPENSE) (take 1 tums every hour as needed for mouth or hand numbness or tingling, continue until symptoms improve)., Disp: , Rfl: 0, Unknown Calcium Carbonate-Vitamin D3 500 mg(1,250mg) -600 unit Chew, Take 1 tablet by mouth three times daily., Disp: , Rfl: 0, Unknown SIMETHICONE (GAS-X ORAL), Take by mouth. USES SOFT GEL TAB. NEEDED. , Disp: , Rfl: , Unknown acetaminophen(TYLENO L EXTRA STRENGTH 500 MG TAB), as needed, Disp: , Rfl: 0, Unknown ALLERGIES Allergen Reactions Sutures Itching Actonel [Risedronat* GI Upset States had GI bleed Adhes. Evel-Spyu-Cc* Beets Rash raised injection site when allergy tested Cantaloupe Hives Eggplant Hives Fosamax [Alendronat* GI Upset States had GI bleed Mobic [Meloxicam] Other: See Comments Edema, HTN Mold Hives Neurontin [Gabapent* Other: See Comments muscle spasms Penicillins Pork Intolerance Wheat Gluten Hives Yeast, Dried Hives Objective Wt 73 kg (160 lb 15 oz) PHYSICAL EXAM: neuro: awake, alert oriented x 3 PERRL EOMI FS TM SI. BUE 5/5 no drift BLE 3/5- limited moblity d/t prior back injury CV: SR on tele Pulm: clear, Mechanical Ventilation: No. Supplemental Oxygen: Yes. NC GI/: bs+ Skin/Extremities: Edema- Yes Peripheral pulses- Present all extremities [facility]ION CHECKLIST DATA: Diagnostic tests reviewed for today's visit: Most recent labs and imaging results. Most recent labs Lines, Drains, and Airways None PERSONAL INVOLVEMENT IN CARE: Reviewing initiation, responses and adjustments to therapies, coordination of care, and updating family with Staff Physician, Dr. Coronado. Assessment AND Plan Neurology * SAH (subarachnoid hemorrhage) (HCC)- (present on admission) Hh2mF3 SAH PLAN: q1 NV checks CTA tonight, possible DSA in the morning standard SAH precautions: nimodipine, LEV x 3 days, euvolemia and TCDs daily bedrest NPO at midnight hold warfarin - now s/p vit K and Kcentra Restless leg syndrome (more content not included)... Normal [facility] Hematocrit Auto (Bld) [Volum e fraction]Ordered By: Tylor Hendrickson on 05-11-2024 Automated blood hematocrit (percentage) 38.6 % 37-47 [facility] Hemoglobin measurementOrdere d By: Tylor Hendrickson on 05-11-2024 Hemoglobin measurement 12.2 g/dL 12.0-15.0 [facility] Immature granulocytes/100 WB C Auto (Bld)Ordered By: Tylor Hendrickson on 05-11-2024 Automated immature granulocyte percentage 0.600 % 0.0-0.9 [facility] International normalized rat io (INR) calculationOrdered By: Tylor Hendrickson on 05-11-2024 International normalized ratio (INR) calculation 2.1 [facility] L501.4020on 05-11-2024 TROPONIN-I HS 13 pg/mL Normal 3.0-54.0 [facility] Comment on above: Order Comment: 'TROP ' Serial specimen #1, #2 or #3: 1 Result Comment: Plesantino se Note: New Test Units and Gender Specific Reference Ranges. For more information see Policy Stat Procedure [place] High Sensitivity Troponin (TNIH) and attachments. Performed By: #### L 300.3900, L500.2500, L501.4020, L100.0100 ####[facility] [id number] [place], [address] Lymphocytes Auto (Unsp spec) [#/Vol]Ordered By: Tylor Hendrickson on 05-11-2024 Absolute lymphocyte count 1.44 X10^3/uL 0.83-4.51 [facility] Lymphocytes/100 WBC Auto (Un sp spec)Ordered By: Tylor Hendrickson on 05-11-2024 Automated lymphocyte count as percentage of total leukocytes 18.4 % Low 19-41 [facility] MCV (RBC) [Entitic vol]Order ed By: Tylor Hendrickson on 05-11-2024 MCV (mean corpuscular volume) determination 90.4 fL 81-99 [facility] Magnesium SerPl-mCncon 05-11 Magnesium [Mass/Vol] 1.7 mg/dL Normal 1.7-2.3 [facility] Comment on above: Order Comment: Speci men Type: BLOOD SPECIMENOrdering Facility: [facility] Address: [address] [place] [address] Performed By: #### 2 777-1, 64776-8, 2157-6, TSHRF, HSTNT, ####[facility] LABCLIA [id number] [place] [address] [place] Magnesium [Mass/Vol] 2.3 mg/dL Normal 1.7-2.3 [facility] Comment on above: Order Comment: Speci men Type: BLOOD SPECIMENOrdering Facility: [facility] Address: [address] [place] [address] Performed By: #### 2 4323-8, 2777-1, 16514-3 ####[facility] LABCLIA [id number] [address] [address] [place] Mean corpuscular hemoglobin (MCH) determinationOrdered By: Tylor Hendrickson on 05-11-2024 Mean corpuscular hemoglobin (MCH) determination 28.6 pg 27.0-32.0 [facility] Mean corpuscular hemoglobin concentration (MCHC) determinationOrdered By: Tylor Hendrickson on 05-11-2024 Mean corpuscular hemoglobin concentration (MCHC) determination 31.6 g/dL Low 32-36 [facility] Mean platelet volume determi nationOrdered By: Tylor Hendrickson on 05-11-2024 Mean platelet volume determination 9.4 fl 6.2-12.0 [facility] Monocyte percentageOrdered B y: Tylor Hendrickson on 05-11-2024 Monocyte percentage 8.3 % 0-10 [facility] Neutrophil percentageOrdered By: Tylor Hendrickson on 05-11-2024 Neutrophil percentage 70.4 % High 47-70 [facility] Nucleated red blood cell per centageOrdered By: Tylor Hendrickson on 05-11-2024 Nucleated red blood cell percentage 0 % 0-5 [facility] PT panel Coag (PPP)on 2023 INR Coag (PPP) [Relative time] 2.0 {INR} High 0.9-1.3 [facility] Comment on above: Order Comment: Speci men Type: BLOOD SPECIMENOrdering Facility: [facility] Address: [address] [place] [address] Result Comment: Nathalie min K Antagonist (VKA) Therapeutic Range: INR 2 to 3 (Target INR of 2.5) Note: For patients treated with VKA drugs, such as warfarin, the [employer] 2012 Guideline recommends a therapeutic INR range of 2 to 3 (target INR of 2.5). This recommendation includes high-risk patients with antiphospholipid syndrome with previous arterial or venous thromboembolism, current-generation mechanical or bioprosthetic aortic heart valve replacement. Note: Patients with mechanical aortic valve replacement and additional risk factors for thromboembolic events (atrial fibrillation, previous thromboembolism, LV dysfunction, hypercoagulable conditions) or an older generation mechanical AVR (i.e., ball in-Cage) or any mechanical MVR should have a INR therapeutic range of 2.5 to 3.5 (target INR of 3). Mikaela RAO, et al. Chest 2012, 141:7S-47S Cam RA, et al. JACC 2017, 70: 252-289 Performed By: #### 1 4979-9, 86177-5 ####[facility] LABCLIA [id number] [address] [address] [place] PT Coag (PPP) [Time] 21.1 s High 9.7-13.0 [facility] Comment on above: Order Comment: Speci men Type: BLOOD SPECIMENOrdering Facility: [facility] Address: [address] [place] [address] Performed By: #### 1 4979-9, 08834-7 ####[facility] LABIA [id number] [place] [id number] [place] Partial Thromboplast Timeon 05-11-2024 aPTT Coag (Bld) [Time] 39.7 s High 24.1-36.2 [facility] Comment on above: Order Comment: ERNESTO Vivas PREVIOUS SPECIMEN REJECTED DUE TOQNS. 05/11/24 1312 Performed By: #### L 300.3900, L300.4310 ####[facility] [id number] [place], [address] Phosphate [facility] Phosphate [Mass/Vol] 2.4 mg/dL Low 2.7-4.8 [facility] Comment on above: Order Comment: Speci men Type: BLOOD SPECIMENOrdering Facility: [facility] Address: [address] [place] [address] Performed By: #### 2 777-1, 83735-9, 2157-6, TSHRF, HSTNT, 58448-0 ####[facility] LABCLIA [id number] [place] [id number] [place] Phosphate [Mass/Vol] 3.2 mg/dL Normal 2.7-4.8 [facility] Comment on above: Order Comment: Speci men Type: BLOOD SPECIMENOrdering Facility: [facility] Address: [address] [place] [address] Performed By: #### 2 4323-8, 2777-1, 65470-5 ####[facility] LABCLIA [id number] [address] [place] [address] [place] Platelet countOrdered By: Cari Hendrickson on 05-11-2024 Platelet count 365 K/mm3 150-450 [facility] Potassium measurementOrdered By: Tylor Hendrickson on 05-11-2024 Potassium measurement 4.2 mmol/L 3.5-5.1 [facility] Prothrombin Time w/INRon INR Coag (PPP) [Relative time] 2.1 {INR} Normal [facility] Comment on above: Order Comment: REDRA W. PREVIOUS SPECIMEN REJECTED DUE TOQNS. 05/11/24 1312 Performed By: #### L 300.3900, L300.4310 ####[facility] [address] [place], [address] PT Coag (PPP) [Time] 23.7 s High 11.7-14.9 [facility] Comment on above: Order Comment: REDRA W. PREVIOUS SPECIMEN REJECTED DUE TOQNS. 05/11/24 1312 Performed By: #### L 300.3900, L300.4310 ####[facility] [address] [place], [address] INR Normal [facility] Comment on above: Result Comment: This specimen has been REJECTED due to Laboratory criteria:Quanity Not Sufficient.HORR has been notified of need of recollection.05/11/24 1310 Tracie Rosales Performed By: #### L 300.3900, L500.2500, L501.4020, L100.0100 ####[facility] [address] [place], [address] PROTIME Normal 11.7-14.9 [facility] Comment on above: Result Comment: This specimen has been REJECTED due to Laboratory criteria:Quanity Not Sufficient.HORR has been notified of need of recollection.05/11/24 1310 Tracie Rosales Performed By: #### L 300.3900, L500.2500, L501.4020, L100.0100 ####[facility] [address] [place], [address] Prothrombin timeOrdered By: Tylor Hendrickson on 05-11-2024 Prothrombin time 23.7 SECONDS High 11.7-14.[address] [facility] RBC Auto (Bld) [#/Vol]Ordere d By: Tylor Hendrickson on 05-11-2024 Automated blood erythrocyte count 4.27 M/mm3 4.2-5.4 [facility] STAPHYLOCOCCUS AUREUS AND MR SA SCREEN, PCR, NASALon 05-11-2024 S. aureus and MRSA panel RHYS+probe (Nose) Not detected Normal Not Detected [facility] Comment on above: Order Comment: Speci men Type: SWABOrdering Facility: [facility] Address: [address] [place] [address] Performed By: #### S APCR ####[facility] LABCLIA [id number] [facility]ITEDESK [place] [address] [place] Serum anion gap measurementO rdered By: Tylor Hendrickson on 05-11-2024 Serum anion gap measurement 7 5-15 [facility] Sodium levelOrdered By: Tylor Hendrickson on 05-11-2024 Sodium level 136 mmol/L 136-145 [facility] Specific gravity (U) [Rel de nsity]Ordered By: Tylor Hendrickson on 05-11-2024 Urine specific gravity measurement 1.010 1.002-1.030 [facility] TSH W/REFLEX FT4on 4 TSH Qn 1.170 m[IU]/L Normal 0.270-4.200 [facility] Comment on above: Order Comment: Speci men Type: BLOOD SPECIMENOrdering Facility: [facility] Address: [address] [place] [address] Performed By: #### 2 777-1, 28916-7, 2157-6, TSHRF, HSTNT, 24199-3 ####[facility] LABCLIA [id number] [place] [address] [place] TYPE + SCREENon 05-11-2024 ABO A Normal [facility] Comment on above: Order Comment: Speci men Type: BLOOD SPECIMENOrdering Facility: [facility] Address: [address] [place] [address] Performed By: #### T SCR ####[facility] BLOOD BANKCLIA [id number] [place] [address] [place] Rh Nom (Bld) Positive Normal [facility] Comment on above: Order Comment: Speci men Type: BLOOD SPECIMENOrdering Facility: [facility] Address: [address] [place] [address] Performed By: #### T SCR ####[facility] BLOOD BANKCLIA [id number] [place] [address] [place] TYPE AND SCREEN EXPIRATION 05/14/2024 23:59 Normal [facility] Comment on above: Order Comment: Speci men Type: BLOOD SPECIMENOrdering Facility: [facility] Address: [address] [place] [address] Performed By: #### T SCR ####[facility] BLOOD BANKCLIA [id number] [place] [address] [place] Troponin IOrdered By: Tylor perez on 05-11-2024 Troponin I 13 pg/mL 3.0-54.0 [facility] Urea nitrogen [Mass/Vol]Orde red By: Tylor Hendrickson on 05-11-2024 Serum or plasma urea nitrogen measurement (mass/volume) 30 mg/dL High 7-18 [facility] Urinalysis, Completeon 05-11 BACTERIA 0 SEEN Normal None Seen [facility] Comment on above: Order Comment: CLEAN CATCH Performed By: #### L 400.0001 ####[facility] [address] [place], [address] EPI,SQUAMOUS 0 SEEN Normal 5-10 [facility] Comment on above: Order Comment: CLEAN CATCH Performed By: #### L 400.0001 ####[facility] [address] [place], [address] Mucus Ql (Urine sed) 0 SEEN Normal [facility] Comment on above: Order Comment: CLEAN CATCH Performed By: #### L 400.0001 ####[facility] [address] [place], [address] RBC 0 SEEN Normal 0-5 [facility] Comment on above: Order Comment: CLEAN CATCH Performed By: #### L 400.0001 ####[facility] [address] [place], [address] WBC 0 SEEN Normal 0-5 [facility] Comment on above: Order Comment: CLEAN CATCH Performed By: #### L 400.0001 ####[facility] [address] [place], [address] Urine glucose detectionOrder ed By: Tylor Hendrickson on 05-11-2024 Urine glucose detection Normal mg/dl Normal [facility] Urine total bilirubin detect ion by test stripOrdered By: Tylor Hendrickson on 05-11-2024 Urine total bilirubin detection by test strip Negative Negative [facility] White blood cell (WBC) count Ordered By: Tylor Hendrickson on 05-11-2024 White blood cell (WBC) count 7.8 K/mm3 4.4-11.0 [facility] White blood cell countOrdere d By: Tylor Hendrickson on 05-11-2024 White blood cell count 0 SEEN /hpf [facility] aPTT Coag (PPP) [Time]Ordere d By: Tylor Hendrickson on 05-11-2024 Activated partial thromboplastin time (aPTT) in platelet poor plasma by coagulation a 39.7 Seconds High 24.1-36.2 [facility] aPTT PPPon 05-11-2024 aPTT Coag (PPP) [Time] 39.3 s High 23.0-32.[address] [facility] Comment on above: Order Comment: Speci men Type: BLOOD SPECIMENOrdering Facility: [facility] Address: [address] [id number] Performed By: #### 1 4979-9, 63975-5 ####[facility] LABCLIA [id number] [address]ED[id number] [place] [id number] [place] pH (U)Ordered By: Tylor antonio on 05-11-2024 Urine pH 8.0 5.0 - 8.0 [facility] 77-KT-Crrgokz DOrdered By: Jing Swenson on 04-14-2024 26-OS-Qzraera D 40.5 ng/mL [facility] Basic Metabolic Profile (BMP )on 04-14-2024 BUN/CRE 32.0 RATIO High 10-20 [facility] Comment on above: Order Comment: Order Date: 04/14/24Order Info: 666- - BMP Performed By: #### L 500.2500 ####[facility] [address] [place], [address] CA,Total 9.1 mg/dL Normal 8.5-10.1 [facility] Comment on above: Order Comment: Order Date: 04/14/24Order Info: 666- - BMP Performed By: #### L 500.2500 ####[facility] [address] [place], [address] Chloride [Moles/Vol] 98 mmol/L Normal 98-107 [facility] Comment on above: Order Comment: Order Date: 04/14/24Order Info: 06- - BMP Performed By: #### L 500.2500 ####[facility] [address] [place], [address] CO2 [Moles/Vol] 29.0 mmol/L Normal 21.0-32.0 [facility] Comment on above: Order Comment: Order Date: 04/14/24Order Info: 666-05 - BMP Performed By: #### L 500.2500 ####[facility] [address] [place], [place], [id number] Creatinine [Mass/Vol] 0.88 mg/dL Normal 0.55-1.02 [facility] Comment on above: Order Comment: Order Date: 04/14/24Order Info: 666-05 - BMP Result Comment: The validity of the calculated GFR GFRAA in patients over70 years has not been determined. Clinical correlation isessential. Performed By: #### L 500.2500 ####[facility] [address] [place], [place], [id number] EST GFR - AA 79 mL/min Normal >60 [facility] Comment on above: Order Comment: Order Date: 04/14/24Order Info: 666-05 - BMP Result Comment: Afri can Kyrgyz GFR Calc Performed By: #### L 500.2500 ####[facility] [address] [place], [address] GAP 9 Normal 5-15 [facility] Comment on above: Order Comment: Order Date: 04/14/24Order Info: 666-05 - BMP Performed By: #### L 500.2500 ####[facility] [address] [place], [place], [id number] GFR/1.73 sq M.predicted among non-blacks MDRD (S/P/Bld) [Vol rate/Area] 65 mL/min/{1.73_m2} Normal >60 [facility] Comment on above: Order Comment: Order Date: 04/14/24Order Info: 666-05 - BMP Result Comment: Non- GFR Calc Performed By: #### L 500.2500 ####[facility] [address] [place], [address] Glucose [Mass/Vol] 97 mg/dL Normal 74-[address] [facility] Comment on above: Order Comment: Order Date: 04/14/24Order Info: 0667-1 - BMP Performed By: #### L 500.2500 ####[facility] [address] [place], [place], [phone] Potassium [Moles/Vol] 3.6 mmol/L Normal 3.5-5.1 [facility] Comment on above: Order Comment: Order Date: 04/14/24Order Info: 0667-1 - BMP Performed By: #### L 500.2500 ####[facility] [address] [place], [address] Sodium [Moles/Vol] 137 mmol/L Normal 136-[address] [facility] Comment on above: Order Comment: Order Date: 04/14/24Order Info: 0667 - BMP Performed By: #### L 500.2500 ####[facility] [address] [place], [address] Urea nitrogen [Mass/Vol] 28 mg/dL High 7-18 [facility] Comment on above: Order Comment: Order Date: 04/14/24Order Info: 0667- - BMP Performed By: #### L 500.2500 ####[facility] [address] [place], [address] Blood urea nitrogen (BUN)/cr eatinine ratioOrdered By: Bridget Swenson on 04-14-2024 Blood urea nitrogen (BUN)/creatinine ratio 32.0 RATIO High 10-20 [facility] Calcium [Mass/Vol]Ordered By : Bridget Swenson on 04-14-2024 Serum or plasma calcium measurement (mass/volume) 9.1 mg/dL 8.5-10.1 [facility] Carbon dioxide measurementOr dered By: Bridget Swenson on 04-14-2024 Carbon dioxide measurement 29.0 mmol/L 21.0-32.0 [facility] Chloride measurementOrdered By: Bridget Swenson on 04-14-2024 Chloride measurement 98 mmol/L 98-107 [facility] Creatinine [Mass/Vol]Ordered By: Bridget Swenson on 04-14-2024 Serum or plasma creatinine measurement (mass/volume) 0.88 mg/dL 0.55-1.02 [facility] Estimated glomerular filtrat ion rate (GFR) AmericanOrdered By: Bridget Swenson on 04-14-2024 Estimated glomerular filtration rate (GFR) 79 mL/min >60 [facility] Glomerular filtration rate ( GFR) estimationOrdered By: Bridget Swenson on 04-14-2024 Glomerular filtration rate (GFR) estimation 65 mL/min >60 [facility] Glucose measurementOrdered B y: Bridget Swenson on 04-14-2024 Glucose measurement 97 mg/dL 74-106 [facility] Intact parathyroid hormone ( iPTH) measurementOrdered By: Bridget Swenson on 04-14-2024 Intact parathyroid hormone (iPTH) measurement 106.4 pg/mL High 18.4-80.1 [facility] PTHINon 04-14-2024 PTH 106.4 pg/mL High 18.4-80.1 [facility] Comment on above: Order Comment: Order Date: 04/14/24Order Info: 0565-1 - PTHIN Performed By: #### L 506.1000, L509.1000 ####[facility] [address] [place], [place], [id number] Potassium measurementOrdered By: Bridget Swenson on 04-14-2024 Potassium measurement 3.6 mmol/L 3.5-5.1 [facility] Serum anion gap measurementO rdered By: Bridget Swenson on 04-14-2024 Serum anion gap measurement 9 5-15 [facility] Sodium levelOrdered By: Zenaida Swenson on 04-14-2024 Sodium level 137 mmol/L 136-145 [facility] Urea nitrogen [Mass/Vol]Orde red By: Bridget Swenson on 04-14-2024 Serum or plasma urea nitrogen measurement (mass/volume) 28 mg/dL High 7-18 [facility] Vitamin D,25 Hydroxyon 04-14 Vitamin D 25-OH 40.5 ng/mL Normal [facility] Comment on above: Order Comment: Order Date: 04/14/24Order Info: 62547-3 - VITD25 Result Comment: Nathalie min D 25(OH) Status Range Deficiency <20 ng/mL (50nmol/L) Insufficiency 20 - 30 ng/mL (50 - 75 nmol/L) Sufficiency 30 - 100 ng/mL (75 - 250 nmol/L) Toxicity >100 ng/mL (>250 nmol/L) Performed By: #### L 506.1000, L509.1000 ####[facility] [address] [place], [address] Carotid Duplex Ultrasoundon 04-01-2024 Carotid Duplex Ultrasound Normal [facility] BNP,B-Type NATRIURETIC PEPTI Arlen 02-11-2024 Natriuretic peptide B (Bld) [Mass/Vol] 85.7 pg/mL Normal 0-100 [facility] Comment on above: Performed By: #### L 500.2500, L503.6620 ####[facility] [address] [place], [address] Basic Metabolic Profile (BMP )on 02-11-2024 BUN/CRE 21.2 RATIO High - [facility] Comment on above: Performed By: #### L 500.2500, L503.6620 ####[facility] [address] [place], [address] CA,Total 8.9 mg/dL Normal 8.5-10.1 [facility] Comment on above: Performed By: #### L 500.2500, L503.6620 ####[facility] [address] [place], [address] Chloride [Moles/Vol] 101 mmol/L Normal 98-107 [facility] Comment on above: Performed By: #### L 500.2500, L503.6620 ####[facility] [address] [place], [address] CO2 [Moles/Vol] 28.0 mmol/L Normal 21.0-32.0 [facility] Comment on above: Performed By: #### L 500.2500, L503.6620 ####[facility] [address] [place], [address] Creatinine [Mass/Vol] 1.32 mg/dL High 0.55-1.02 [facility] Comment on above: Result Comment: The validity of the calculated GFR GFRAA in patients over70 years has not been determined. Clinical correlation isessential. Performed By: #### L 500.2500, L503.6620 ####[facility] [address] [place], [address] EST GFR - AA 49 mL/min Low >60 [facility] Comment on above: Result Comment: Afri can Kyrgyz GFR Calc Performed By: #### L 500.2500, L503.6620 ####[facility] [address] [place], [address] GAP 8 Normal 5-15 [facility] Comment on above: Performed By: #### L 500.2500, L503.6620 ####[facility] [address] [place], [address] GFR/1.73 sq M.predicted among non-blacks MDRD (S/P/Bld) [Vol rate/Area] 40 mL/min/{1.73_m2} Low >60 [facility] Comment on above: Result Comment: Non- GFR Calc Performed By: #### L 500.2500, L503.6620 ####[facility] [address] [place], [address] Glucose [Mass/Vol] 139 mg/dL High 74-[address] [facility] Comment on above: Result Comment: Fast ing Glucose result greater than or equal to 126 mg/dLsuggests DIABETES MELLITUS per A.D.A. criteria. Performed By: #### L 500.2500, L503.6620 ####[facility] [address] [place], [address] Potassium [Moles/Vol] 4.2 mmol/L Normal 3.5-5.1 [facility] Comment on above: Performed By: #### L 500.2500, L503.6620 ####[facility] [address] [place], [address] Sodium [Moles/Vol] 136 mmol/L Normal 136-[address] [facility] Comment on above: Performed By: #### L 500.2500, L503.6620 ####[facility] [address] [place], [address] Urea nitrogen [Mass/Vol] 28 mg/dL High 7-18 [facility] Comment on above: Performed By: #### L 500.2500, L503.6620 ####[facility] [address] [place], [address] Cardiology Visit Reporton Cardiology Visit Report Normal [facility] Basophil percentageOrdered B y: Bridget Swenson on 08-27-2023 Chloride [Moles/Vol] 96 mmol/L 98-107 [facility] Glucose [Mass/Vol] 96 mg/dL 74-[address] [facility] Potassium [Moles/Vol] 3.9 mmol/L 3.5-5.1 [facility] Sodium [Moles/Vol] 135 mmol/L 136-[address] [facility] Laboratory - Chemistry and C hemistry - challengeOrdered By: Bridget Swenson on 08-27-2023 CO2 [Moles/Vol] 30.0 mmol/L 21.0-32.0 [facility] Natriuretic peptide B (Bld) [Mass/Vol] 43.4 pg/mL 0-100 [facility] Urea nitrogen/Creatinine [Mass ratio] 38.9 mg/mg 10-20 [facility] No Panel InformationOrdered By: Bridget Swenson on 08-27-2023 Estimated GFR (MDRD) Amer 69 mL/min >60 [facility] Comment on above: GFR Calc Estimated GFR (MDRD) Non-Af Amer 57 mL/min >60 [facility] Comment on above: Non- GFR Calc Serum or plasma calcium manuel urement (mass/volume)Ordered By: Bridget Swenson on 08-27-2023 Calcium [Mass/Vol] 9.2 mg/dL 8.5-10.[address] [facility] Serum or plasma creatinine m easurement (mass/volume)Ordered By: Bridget Swenson on 08-27-2023 Creatinine [Mass/Vol] 0.98 mg/dL 0.55-1.02 [facility] Comment on above: The validity of the calculated GFR & GFRAA in patients over 70 years has not been determined. Clinical correlation is essential. Serum or plasma urea nitroge n measurement (mass/volume)Ordered By: Bridget Swenson on 08-27-2023 Urea nitrogen [Mass/Vol] 38 mg/dL 7-18 [facility] Thin prep Papanicolaou smear with manual screeningOrdered By: Bridget Swenson on 08-27-2023 Thin prep Papanicolaou smear with manual screening 9 5-15 [facility] Absolute lymphocyte countOrd ered By: Doyle Swenson on 08-11-2023 Lymphocytes Auto (Unsp spec) [#/Vol] 1.88 10*3/uL 0.83-4.51 [facility] Automated lymphocyte count a s percentage of total leukocytesOrdered By: Doyle Swenson on 08-11-2023 Lymphocytes/100 WBC Auto (Unsp spec) 23.9 % 19-41 [facility] Basophil percentageOrdered B y: Doyle Swenson on 08-11-2023 Basophils/100 WBC (Bld) 0.9 % 0-1 [facility] Bilirubin [Mass/Vol] 0.40 mg/dL 0.20-1.00 [facility] Comment on above: For patients on eltr ombopag therapy, use of Dimension [place] TBIL is not recommended. Chloride [Moles/Vol] 102 mmol/L 98-107 [facility] Eosinophils/100 WBC (Bld) 2.0 % 0-5 [facility] Glucose [Mass/Vol] 112 mg/dL 74-[address] [facility] Comment on above: Fasting Glucose resu lt from 100 to 125 mg/dL suggests IMPAIRED HOMEOSTASIS per A.D.A. criteria. Hemoglobin (Bld) [Mass/Vol] 11.4 g/dL 12.0-15.0 [facility] Monocytes/100 WBC (Bld) 8.5 % 0-10 [facility] Neutrophils (Bld) [#/Vol] 5.1 10*3/uL 2.0-7.7 [facility] Neutrophils/100 WBC (Bld) 64.3 % 47-70 [facility] Potassium [Moles/Vol] 4.4 mmol/L 3.5-5.1 [facility] Protein [Mass/Vol] 7.5 g/dL 6.4-8.[address] [facility] Sodium [Moles/Vol] 138 mmol/L 136-[address] [facility] WBC (Bld) [#/Vol] 7.9 10*3/uL 4.4-11.[address] [facility] Determination of erythrocyte mean corpuscular volume (MCV)Ordered By: Doyle Swenson on 08-11-2023 MCV (RBC) [Entitic vol] 91.3 fL 81-99 [facility] Erythrocyte distribution wid th ratioOrdered By: Doyle Swenson on 08-11-2023 Erythrocyte distribution width (RBC) [Ratio] 14.2 % 11.6-14.6 [facility] Erythrocyte distribution wid th standard deviationOrdered By: Doyle Swenson on 08-11-2023 Erythrocyte distribution width (RBC) [Entitic vol] 47.9 fL 35.1-43.9 [facility] Hematocrit Auto (Bld) [Volum e fraction]Ordered By: Doyle Swenson on 08-11-2023 Hematocrit (Bld) [Volume fraction] 35.8 % 37-47 [facility] Immature granulocytes/100 WB C Auto (Bld)Ordered By: Doyle Swenson on 08-11-2023 Immature granulocytes/100 WBC (Bld) 0.400 % 0.0-0.9 [facility] Comment on above: IG% - Immature Granu locytes (promyelocytes, myelocytes and metamyelocytes) > 1% indicates that a LEFT SHIFT is Present. Iron measurement (mass/mass) Ordered By: Doyle Swenson on 08-11-2023 Iron (Unsp spec) [Mass/Mass] 32 ug/dL 50-170 [facility] Laboratory - Chemistry and C hemistry - challengeOrdered By: Doyle Swenson on 08-11-2023 Albumin/Globulin [Mass ratio] 0.9 {ratio} 0.9-2.4 [facility] ALP [Catalytic activity/Vol] 60 U/L 45-117 [facility] ALT [Catalytic activity/Vol] 18 U/L 13-56 [facility] CO2 [Moles/Vol] 28.0 mmol/L 21.0-32.0 [facility] Ferritin [Mass/Vol] 41 ng/mL 8-252 [facility] Globulin (S) [Mass/Vol] 4.0 g/dL 2.2-4.2 [facility] Urea nitrogen/Creatinine [Mass ratio] 36.8 mg/mg 10-20 [facility] Laboratory - Hematology and Cell countsOrdered By: Doyle Swenson on 08-11-2023 MCH (RBC) [Entitic mass] 29.1 pg 27.0-32.0 [facility] MCHC (RBC) [Mass/Vol] 31.8 g/dL 32-36 [facility] Nucleated RBC/100 WBC (Bld) [Ratio] 0 % 0-5 [facility] Platelet mean volume (Bld) [Entitic vol] 9.7 fL 6.2-12.0 [facility] Platelets (Bld) [#/Vol] 385 10*3/uL 150-450 [facility] No Panel InformationOrdered By: Doyle Swenson on 08-11-2023 Estimated GFR (MDRD) Amer 77 mL/min >60 [facility] Comment on above: GFR Calc Estimated GFR (MDRD) Non-Af Amer 63 mL/min >60 [facility] Comment on above: Non- GFR Calc RBC Auto (Bld) [#/Vol]Ordere d By: Doyle Swenson on 08-11-2023 RBC (Bld) [#/Vol] 3.92 10*6/uL 4.2-5.4 [facility] Serum or plasma calcium manuel urement (mass/volume)Ordered By: Doyle Swenson on 08-11-2023 Calcium [Mass/Vol] 8.8 mg/dL 8.5-10.[address] [facility] Serum or plasma creatinine m easurement (mass/volume)Ordered By: Doyle Swenson on 08-11-2023 Creatinine [Mass/Vol] 0.90 mg/dL 0.55-1.02 [facility] Comment on above: The validity of the calculated GFR & GFRAA in patients over 70 years has not been determined. Clinical correlation is essential. Serum or plasma thyroid stim ulating hormone (TSH) measurement (units/volume)Ordered By: Doyle Swenson on 08-11-2023 TSH Qn 1.34 uIU/mL 0.358-3.74 [facility] Serum or plasma urea nitroge n measurement (mass/volume)Ordered By: Doyle Swenson on 08-11-2023 Urea nitrogen [Mass/Vol] 33 mg/dL 7-18 [facility] Thin prep Papanicolaou smear with manual screeningOrdered By: Doyle Swenson on 08-11-2023 Thin prep Papanicolaou smear with manual screening 3.5 g/dL 3.2-5.0 [facility] Thin prep Papanicolaou smear with manual screening 21 U/L 15-37 [facility] Thin prep Papanicolaou smear with manual screening 8 5-15 [facility] Basophil percentageOrdered B y: Doyle Swenson on 08-06-2023 Chloride [Moles/Vol] 104 mmol/L 98-107 [facility] Glucose [Mass/Vol] 102 mg/dL 74-[address] [facility] Comment on above: Fasting Glucose resu lt from 100 to 125 mg/dL suggests IMPAIRED HOMEOSTASIS per A.D.A. criteria. Potassium [Moles/Vol] 4.5 mmol/L 3.5-5.1 [facility] Comment on above: Slight Hemolysis, Re sult may be falsely increased. Sodium [Moles/Vol] 136 mmol/L 136-[address] [facility] Laboratory - Chemistry and C hemistry - challengeOrdered By: Doyle Swenson on 08-06-2023 CO2 [Moles/Vol] 27.0 mmol/L 21.0-32.0 [facility] Urea nitrogen/Creatinine [Mass ratio] 22.6 mg/mg 10-20 [facility] No Panel InformationOrdered By: Doyle Swenson on 08-06-2023 Estimated GFR (MDRD) Amer 63 mL/min >60 [facility] Comment on above: GFR Calc Estimated GFR (MDRD) Non-Af Amer 52 mL/min >60 [facility] Comment on above: Non- GFR Calc Serum or plasma calcium manuel urement (mass/volume)Ordered By: Doyle Swenson on 08-06-2023 Calcium [Mass/Vol] 8.5 mg/dL 8.5-10.[address] [facility] Serum or plasma creatinine m easurement (mass/volume)Ordered By: Doyle Swenson on 08-06-2023 Creatinine [Mass/Vol] 1.06 mg/dL 0.55-1.02 [facility] Comment on above: The validity of the calculated GFR & GFRAA in patients over 70 years has not been determined. Clinical correlation is essential. Serum or plasma urea nitroge n measurement (mass/volume)Ordered By: Doyle Swenson on 08-06-2023 Urea nitrogen [Mass/Vol] 24 mg/dL 7-18 [facility] Thin prep Papanicolaou smear with manual screeningOrdered By: Doyle Swenson on 08-06-2023 Thin prep Papanicolaou smear with manual screening 5 5-15 [facility] Basophil percentageOrdered B y: Dolye Swenson on 06-09-2023 Bilirubin [Mass/Vol] 0.40 mg/dL 0.20-1.00 [facility] Comment on above: For patients on eltr ombopag therapy, use of Dimension [place] TBIL is not recommended. Chloride [Moles/Vol] 99 mmol/L 98-107 [facility] Glucose [Mass/Vol] 96 mg/dL 74-[address] [facility] Hemoglobin (Bld) [Mass/Vol] 11.0 g/dL 12.0-15.0 [facility] Potassium [Moles/Vol] 4.4 mmol/L 3.5-5.1 [facility] Protein [Mass/Vol] 7.5 g/dL 6.4-8.[address] [facility] Sodium [Moles/Vol] 134 mmol/L 136-[address] [facility] WBC (Bld) [#/Vol] 6.8 10*3/uL 4.4-11.[address] [facility] Determination of erythrocyte mean corpuscular volume (MCV)Ordered By: Doyle Swenson on 06-09-2023 MCV (RBC) [Entitic vol] 95.3 fL 81-99 [facility] Erythrocyte distribution wid th ratioOrdered By: Doyle Swenson on 06-09-2023 Erythrocyte distribution width (RBC) [Ratio] 13.6 % 11.6-14.6 [facility] Erythrocyte distribution wid th standard deviationOrdered By: Doyle Swenson on 06-09-2023 Erythrocyte distribution width (RBC) [Entitic vol] 48.3 fL 35.1-43.9 [facility] Erythrocyte sedimentation ra teOrdered By: Doyle Swenson on 06-09-2023 ESR (Bld) [Velocity] 50 mm/h 0-30 [facility] Hematocrit Auto (Bld) [Volum e fraction]Ordered By: Doyle Swenson on 06-09-2023 Hematocrit (Bld) [Volume fraction] 36.3 % 37-47 [facility] Laboratory - Chemistry and C hemistry - challengeOrdered By: Doyle Swenson on 06-09-2023 Albumin/Globulin [Mass ratio] 0.8 {ratio} 0.9-2.4 [facility] ALP [Catalytic activity/Vol] 63 U/L 45-117 [facility] ALT [Catalytic activity/Vol] 24 U/L 13-56 [facility] CO2 [Moles/Vol] 31.0 mmol/L 21.0-32.0 [facility] Globulin (S) [Mass/Vol] 4.2 g/dL 2.2-4.2 [facility] Natriuretic peptide B (Bld) [Mass/Vol] 90.9 pg/mL 0-100 [facility] Urea nitrogen/Creatinine [Mass ratio] 35.1 mg/mg 10-20 [facility] Laboratory - Hematology and Cell countsOrdered By: Doyle Swenson on 06-09-2023 MCH (RBC) [Entitic mass] 28.9 pg 27.0-32.0 [facility] MCHC (RBC) [Mass/Vol] 30.3 g/dL 32-36 [facility] Platelets (Bld) [#/Vol] 353 10*3/uL 150-450 [facility] No Panel InformationOrdered By: Doyle Swenson on 06-09-2023 C-Reactive Protein Extended Range 21.90 mg/L 0.0-3.0 [facility] Comment on above: C-Reactive Protein ( CRP) provides useful information for thediagnosis, therapy and monitoring of inflammatory processesand associated diseases. For the evaluation of Relative Riskfor Cardiovascular Disease, a High Sensitivity CRP (HSCRP)should be ordered. Estimated GFR (MDRD) Amer 84 mL/min >60 [facility] Comment on above: GFR Calc Estimated GFR (MDRD) Non-Af Amer 69 mL/min >60 [facility] Comment on above: Non- GFR Calc Platelet mean volume Mauricio-Ec ker (Bld) [Entitic vol]Ordered By: Doyle Swenson on 06-09-2023 Platelet mean volume (Bld) [Entitic vol] 10.0 fL 6.2-12.0 [facility] RBC Auto (Bld) [#/Vol]Ordere d By: Doyle Swenson on 06-09-2023 RBC (Bld) [#/Vol] 3.81 10*6/uL 4.2-5.4 [facility] Serum or plasma calcium manuel urement (mass/volume)Ordered By: Doyle Swenson on 06-09-2023 Calcium [Mass/Vol] 9.5 mg/dL 8.5-10.[address] [facility] Serum or plasma creatinine m easurement (mass/volume)Ordered By: Doyle Swenson on 06-09-2023 Creatinine [Mass/Vol] 0.83 mg/dL 0.55-1.02 [facility] Comment on above: The validity of the calculated GFR & GFRAA in patients over 70 years has not been determined. Clinical correlation is essential. Serum or plasma thyroid stim ulating hormone (TSH) measurement (units/volume)Ordered By: Doyle Swenson on 06-09-2023 TSH Qn 0.76 uIU/mL 0.358-3.74 [facility] Serum or plasma urea nitroge n measurement (mass/volume)Ordered By: Doyle Swenson on 06-09-2023 Urea nitrogen [Mass/Vol] 29 mg/dL 7-18 [facility] Serum or plasma uric acid me asurement (mass/volume)Ordered By: Doyle Swenson on 06-09-2023 Urate [Mass/Vol] 6.4 mg/dL 2.6-6.0 [facility] Comment on above: The drugs N-Acetylcy steine and Metamizole may falsely depress this assay. Thin prep Papanicolaou smear with manual screeningOrdered By: Doyle Swenson on 06-09-2023 Thin prep Papanicolaou smear with manual screening 3.3 g/dL 3.2-5.0 [facility] Thin prep Papanicolaou smear with manual screening 22 U/L 15-37 [facility] Thin prep Papanicolaou smear with manual screening 4 5-15 [facility] Absolute lymphocyte countOrd ered By: Duglas Shields on 05-12-2023 Lymphocytes Auto (Unsp spec) [#/Vol] 0.93 10*3/uL 0.83-4.51 [facility] Basophil percentageOrdered B y: Duglas Shields on 05-12-2023 Basophil percentage 0-5 SEEN /hpf 0-5 [facility] Basophils/100 WBC (Bld) 0.7 % 0-1 [facility] Chloride [Moles/Vol] 100 mmol/L 98-107 [facility] Eosinophils/100 WBC (Bld) 1.3 % 0-5 [facility] Glucose [Mass/Vol] 108 mg/dL 74-[address] [facility] Comment on above: Fasting Glucose resu lt from 100 to 125 mg/dL suggests IMPAIRED HOMEOSTASIS per A.D.A. criteria. Neutrophils (Bld) [#/Vol] 4.7 10*3/uL 2.0-7.7 [facility] Neutrophils/100 WBC (Bld) 65.0 % 47-70 [facility] Potassium [Moles/Vol] 3.9 mmol/L 3.5-5.1 [facility] Sodium [Moles/Vol] 135 mmol/L 136-[address] [facility] WBC (Bld) [#/Vol] 7.2 10*3/uL 4.4-11.[address] [facility] Bilirubin Test strip Ql (U)O rdered By: Duglas Shields on 05-12-2023 Bilirubin Ql (U) Negative Negative [facility] Blood erythrocytes count (nu mber/volume)Ordered By: Duglas Shields on 05-12-2023 RBC (Bld) [#/Vol] 3.68 10*6/uL 4.2-5.4 [facility] Blood hemoglobin measurement (mass/volume)Ordered By: Duglas Shields on 05-12-2023 Hemoglobin (Bld) [Mass/Vol] 10.6 g/dL 12.0-15.0 [facility] Blood lymphocytes/100 leukoc ytesOrdered By: Duglas Shields on 05-12-2023 Lymphocytes/100 WBC (Bld) 13.0 % 19-41 [facility] Blood monocytes/100 leukocyt esOrdered By: Duglas Shields on 05-12-2023 Monocytes/100 WBC (Bld) 19.2 % 0-10 [facility] Blood platelet mean volumeOr dered By: Duglas Shields on 05-12-2023 Platelet mean volume (Bld) [Entitic vol] 9.5 fL 6.2-12.0 [facility] Determination of erythrocyte mean corpuscular volume (MCV)Ordered By: Duglas Shields on 05-12-2023 MCV (RBC) [Entitic vol] 92.4 fL 81-99 [facility] Hematocrit Auto (Bld) [Volum e fraction]Ordered By: Duglas Shields on 05-12-2023 Hematocrit (Bld) [Volume fraction] 34.0 % 37-47 [facility] INR in Blood by Coagulation assayOrdered By: Duglas Shields on 05-12-2023 INR Coag (Bld) [Relative time] 2.2 {INR} [facility] Influenza virus A and B and SARS-CoV-2 (COVID-19) Ag panel - Upper respiratory specimOrdered By: Duglas Shields on 05-12-2023 SARS-CoV-2 (COVID-19) RNA RHYS+probe Ql (Resp) [facility] Ketones Test strip Ql (U)Ord ered By: Duglas Shields on 05-12-2023 Ketones Ql (U) Negative Negative [facility] Laboratory - Chemistry and C hemistry - challengeOrdered By: Duglas Shields on 05-12-2023 CO2 [Moles/Vol] 30.0 mmol/L 21.0-32.0 [facility] Urea nitrogen/Creatinine [Mass ratio] 18.0 mg/mg 10-20 [facility] - CoagulationOrde red By: Duglas Shields on 05-12-2023 PT Coag (PPP) [Time] 24.4 s 11.7-14.9 [facility] Laboratory - Hematology and Cell countsOrdered By: Duglas Shields on 05-12-2023 Erythrocyte distribution width (RBC) [Entitic vol] 46.5 fL 35.1-43.9 [facility] Erythrocyte distribution width (RBC) [Ratio] 13.5 % 11.6-14.6 [facility] Immature granulocytes/100 WBC (Bld) 0.800 % 0.0-0.9 [facility] Comment on above: IG% - Immature Granu locytes (promyelocytes, myelocytes and metamyelocytes) > 1% indicates that a LEFT SHIFT is Present. MCH (RBC) [Entitic mass] 28.8 pg 27.0-32.0 [facility] Nucleated RBC/100 WBC (Bld) [Ratio] 0 % 0-5 [facility] MCHC Auto (RBC) [Mass/Vol]Or dered By: Duglas Shields on 05-12-2023 MCHC (RBC) [Mass/Vol] 31.2 g/dL 32-36 [facility] Mucus LM Ql (Urine sed)Order ed By: Duglas Shields on 05-12-2023 Mucus Ql (Urine sed) 0 SEEN /hpf [facility] Nitrite Test strip Ql (U)Ord ered By: Duglas Shields on 05-12-2023 Nitrite Ql (U) Negative Negative [facility] No Panel InformationOrdered By: Duglas Shields on 05-12-2023 Estimated GFR (MDRD) Amer 90 mL/min >60 [facility] Comment on above: GFR Calc Estimated GFR (MDRD) Non-Af Amer 74 mL/min >60 [facility] Comment on above: Non- GFR Calc Platelets bldOrdered By: Sharda Shields on 05-12-2023 Platelets (Bld) [#/Vol] 362 10*3/uL 150-450 [facility] Protein Test strip Ql (U)Ord ered By: Duglas Shields on 05-12-2023 Protein Ql (U) 30 mg/dl Negative [facility] Serum or plasma calcium manuel urement (mass/volume)Ordered By: Duglas Shields on 05-12-2023 Calcium [Mass/Vol] 9.2 mg/dL 8.5-10.[address] [facility] Serum or plasma creatinine m easurement (mass/volume)Ordered By: Duglas Shields on 05-12-2023 Creatinine [Mass/Vol] 0.78 mg/dL 0.55-1.02 [facility] Comment on above: The validity of the calculated GFR & GFRAA in patients over 70 years has not been determined. Clinical correlation is essential. Serum or plasma urea nitroge n measurement (mass/volume)Ordered By: Duglas Shields on 05-12-2023 Urea nitrogen [Mass/Vol] 14 mg/dL 7-18 [facility] Squamous epithelial cells de tection in urine sediment by light microscopyOrdered By: Duglas Shields on 05-12-2023 Epithelial cells.squamous LM Ql (Urine sed) 0-5 SEEN /hpf 5-10 [facility] Thin prep Papanicolaou smear with manual screeningOrdered By: Duglas Shields on 05-12-2023 Thin prep Papanicolaou smear with manual screening 5 5-15 [facility] Upper respiratory specimen i nfluenza A virus, influenza B virus, and severe acute resOrdered By: Duglas Shields on 05-12-2023 Upper respiratory specimen influenza A virus, influenza B virus, and severe acute res [facility] Upper respiratory specimen i nfluenza A virus, influenza B virus, and severe acute respiratory syndromOrdered By: Duglas Shields on 05-12-2023 Upper respiratory specimen influenza A virus, influenza B virus, and severe acute respiratory syndrom [facility] Urine blood detectionOrdered By: Duglas Shields on 05-12-2023 RBC Ql (U) 10 /ul Negative [facility] RBC Ql (U) 0-5 SEEN /hpf 0-5 [facility] Urine clarityOrdered By: Sharda Shiedls on 05-12-2023 Clarity (U) Clear Clear [facility] Urine color determinationOrd ered By: Duglas Shields on 05-12-2023 Color (U) Straw Yellow [facility] Urine glucose detectionOrder ed By: Duglas Shields on 05-12-2023 Glucose Ql (U) Normal mg/dl Normal [facility] Urine leukocyte esterase det ection by dipstickOrdered By: Duglas Shields on 05-12-2023 Leukocyte esterase Test strip Ql (U) Negative Negative [facility] Urine pHOrdered By: Duglas abreu on 05-12-2023 pH (U) 8.0 [pH] 5.0 - 8.0 [facility] Urine sediment bacteria coun t by microscopy (number/high power field)Ordered By: Duglas Shields on 05-12-2023 Bacteria LM.HPF (Urine sed) [#/Area] 0 /[HPF] None Seen [facility] Urine specific gravity measu rementOrdered By: Duglas Shields on 05-12-2023 Specific gravity (U) [Rel density] 1.010 1.002-1.030 [facility] Urobilinogen Auto test strip Ql (U)Ordered By: Duglas Shields on 05-12-2023 Urobilinogen Ql (U) Normal mg/dl Normal [facility] Serum or plasma ferritin fran surement (mass/volume)Ordered By: Juan Jose Thomas on 02-25-2023 Ferritin [Mass/Vol] 90 ng/mL 8-252 [facility] Basophil percentageOrdered B y: Doyle Swenson on 12-18-2022 Chloride [Moles/Vol] 101 mmol/L 98-107 [facility] Glucose [Mass/Vol] 91 mg/dL 74-[address] [facility] Potassium [Moles/Vol] 4.7 mmol/L 3.5-5.1 [facility] Sodium [Moles/Vol] 134 mmol/L 136-[address] [facility] WBC (Bld) [#/Vol] 6.5 10*3/uL 4.4-11.[address] [facility] Blood erythrocytes count (nu mber/volume)Ordered By: Doyle Swenson on 12-18-2022 RBC (Bld) [#/Vol] 3.92 10*6/uL 4.2-5.4 [facility] Blood hemoglobin measurement (mass/volume)Ordered By: Doyle Swenson on 12-18-2022 Hemoglobin (Bld) [Mass/Vol] 11.8 g/dL 12.0-15.0 [facility] Blood platelet mean volumeOr dered By: Doyle Swenson on 12-18-2022 Platelet mean volume (Bld) [Entitic vol] 10.2 fL 6.2-12.0 [facility] Determination of erythrocyte mean corpuscular volume (MCV)Ordered By: Doyle Swenson on 12-18-2022 MCV (RBC) [Entitic vol] 98.5 fL 81-99 [facility] Hematocrit Auto (Bld) [Volum e fraction]Ordered By: Doyle Swenson on 12-18-2022 Hematocrit (Bld) [Volume fraction] 38.6 % 37-47 [facility] INR in Blood by Coagulation assayOrdered By: Doyle Swenson on 12-18-2022 INR Coag (Bld) [Relative time] 2.1 {INR} [facility] Iron measurement (mass/mass) Ordered By: Doyle Swenson on 12-18-2022 Iron (Unsp spec) [Mass/Mass] 61 ug/dL 50-170 [facility] Laboratory - Chemistry and C hemistry - challengeOrdered By: Doyle Swenson on 12-18-2022 CO2 [Moles/Vol] 27.0 mmol/L 21.0-32.0 [facility] Natriuretic peptide B (Bld) [Mass/Vol] 44.6 pg/mL 0-100 [facility] Urea nitrogen/Creatinine [Mass ratio] 30.3 mg/mg 10-20 [facility] - CoagulationOrde red By: Doyle Swenson on 12-18-2022 PT Coag (PPP) [Time] 23.4 s 11.7-14.9 [facility] Laboratory - Hematology and Cell countsOrdered By: Doyle Swenson on 12-18-2022 Erythrocyte distribution width (RBC) [Entitic vol] 45.0 fL 35.1-43.9 [facility] Erythrocyte distribution width (RBC) [Ratio] 12.5 % 11.6-14.6 [facility] MCH (RBC) [Entitic mass] 30.1 pg 27.0-32.0 [facility] MCHC Auto (RBC) [Mass/Vol]Or dered By: Doyle Swenson on 12-18-2022 MCHC (RBC) [Mass/Vol] 30.6 g/dL 32-36 [facility] No Panel InformationOrdered By: Doyle Swenson on 12-18-2022 Estimated GFR (MDRD) Amer 74 mL/min >60 [facility] Comment on above: GFR Calc Estimated GFR (MDRD) Non-Af Amer 61 mL/min >60 [facility] Comment on above: Non- GFR Calc Thyroid Stimulating Hormone (TSH) 1.37 uIU/mL 0.358-3.74 [facility] Platelets bldOrdered By: Fawn aramis Leela on 12-18-2022 Platelets (Bld) [#/Vol] 319 10*3/uL 150-450 [facility] Serum or plasma calcium manuel urement (mass/volume)Ordered By: Doyle Swenson on 12-18-2022 Calcium [Mass/Vol] 9.1 mg/dL 8.5-10.[address] [facility] Serum or plasma creatinine m easurement (mass/volume)Ordered By: Doyle Swenson on 12-18-2022 Creatinine [Mass/Vol] 0.92 mg/dL 0.55-1.02 [facility] Comment on above: The validity of the calculated GFR & GFRAA in patients over 70 years has not been determined. Clinical correlation is essential. Serum or plasma ferritin fran surement (mass/volume)Ordered By: Doyle Swenson on 12-18-2022 Ferritin [Mass/Vol] 66 ng/mL 8-252 [facility] Serum or plasma urea nitroge n measurement (mass/volume)Ordered By: Doyle Swenson on 12-18-2022 Urea nitrogen [Mass/Vol] 28 mg/dL 7-18 [facility] Thin prep Papanicolaou smear with manual screeningOrdered By: Doyle Swenson on 12-18-2022 Thin prep Papanicolaou smear with manual screening 6 5-15 [facility] Basophil percentageOrdered B y: Murtaza Charles on 11-06-2022 Bilirubin [Mass/Vol] 0.40 mg/dL 0.20-1.00 [facility] Comment on above: For patients on eltr ombopag therapy, use of Dimension [place] TBIL is not recommended. Chloride [Moles/Vol] 101 mmol/L 98-107 [facility] Glucose [Mass/Vol] 107 mg/dL 74-[address] [facility] Comment on above: Fasting Glucose resu lt from 100 to 125 mg/dL suggests IMPAIRED HOMEOSTASIS per A.D.A. criteria. Potassium [Moles/Vol] 4.3 mmol/L 3.5-5.1 [facility] Protein [Mass/Vol] 7.7 g/dL 6.4-8.[address] [facility] Sodium [Moles/Vol] 137 mmol/L 136-[address] [facility] Laboratory - Chemistry and C hemistry - challengeOrdered By: Murtaza Charles on 11-06-2022 Natriuretic peptide B (Bld) [Mass/Vol] 49.3 pg/mL 0-100 [facility] ALP [Catalytic activity/Vol] 61 U/L 45-117 [facility] ALT [Catalytic activity/Vol] 22 U/L 13-56 [facility] CO2 [Moles/Vol] 30.0 mmol/L 21.0-32.0 [facility] Globulin (S) [Mass/Vol] 4.1 g/dL 2.2-4.2 [facility] Urea nitrogen/Creatinine [Mass ratio] 26.4 mg/mg 10-20 [facility] No Panel InformationOrdered By: Murtaza Charles on 11-06-2022 Estimated GFR (MDRD) Amer 84 mL/min >60 [facility] Comment on above: GFR Calc Estimated GFR (MDRD) Non-Af Amer 69 mL/min >60 [facility] Comment on above: Non- GFR Calc Troponin I High Sensitivity 10 pg/mL 3.0-54.0 [facility] Comment on above: Please Note: New Padmini t Units and Gender Specific Reference Ranges. For more information see Policy Stat Procedure [place] High Sensitivity Troponin (TNIH) and attachments. Serum or plasma albumin manuel urement (mass/volume)Ordered By: Murtaza Charles on 11-06-2022 Albumin [Mass/Vol] 3.6 g/dL 3.2-5.[address] [facility] Serum or plasma albumin/glob ulin mass ratioOrdered By: Murtaza Charles on 11-06-2022 Albumin/Globulin [Mass ratio] 0.9 {ratio} 0.9-2.4 [facility] Serum or plasma calcium manuel urement (mass/volume)Ordered By: Murtaza Charles on 11-06-2022 Calcium [Mass/Vol] 9.0 mg/dL 8.5-10.[address] [facility] Serum or plasma creatinine m easurement (mass/volume)Ordered By: Murtaza Charles on 11-06-2022 Creatinine [Mass/Vol] 0.83 mg/dL 0.55-1.02 [facility] Comment on above: The validity of the calculated GFR & GFRAA in patients over 70 years has not been determined. Clinical correlation is essential. Serum or plasma urea nitroge n measurement (mass/volume)Ordered By: Murtaza Charles on 11-06-2022 Urea nitrogen [Mass/Vol] 22 mg/dL 7-18 [facility] Thin prep Papanicolaou smear with manual screeningOrdered By: Murtaza Charles on 11-06-2022 Thin prep Papanicolaou smear with manual screening 22 U/L 15-37 [facility] Thin prep Papanicolaou smear with manual screening 6 5-15 [facility] Absolute lymphocyte countOrd ered By: Dr. Swenson on 08-26-2022 Lymphocytes Auto (Unsp spec) [#/Vol] 1.93 10*3/uL 0.83-4.51 [facility] Basophil percentageOrdered B y: Dr. Swenson on 08-26-2022 Basophils/100 WBC (Bld) 0.7 % 0-1 [facility] Bilirubin [Mass/Vol] 0.40 mg/dL 0.20-1.00 [facility] Comment on above: For patients on eltr ombopag therapy, use of Dimension [place] TBIL is not recommended. Chloride [Moles/Vol] 101 mmol/L 98-107 [facility] Eosinophils/100 WBC (Bld) 1.2 % 0-5 [facility] Glucose [Mass/Vol] 110 mg/dL 74-[address] [facility] Comment on above: Fasting Glucose resu lt from 100 to 125 mg/dL suggests IMPAIRED HOMEOSTASIS per A.D.A. criteria. Neutrophils (Bld) [#/Vol] 5.2 10*3/uL 2.0-7.7 [facility] Neutrophils/100 WBC (Bld) 64.4 % 47-70 [facility] Potassium [Moles/Vol] 3.9 mmol/L 3.5-5.1 [facility] Protein [Mass/Vol] 7.3 g/dL 6.4-8.[address] [facility] Sodium [Moles/Vol] 136 mmol/L 136-[address] [facility] WBC (Bld) [#/Vol] 8.1 10*3/uL 4.4-11.[address] [facility] Blood erythrocytes count (nu mber/volume)Ordered By: Dr. Swenson on 08-26-2022 RBC (Bld) [#/Vol] 4.36 10*6/uL 4.2-5.4 [facility] Blood hemoglobin measurement (mass/volume)Ordered By: Dr. Swenson on 08-26-2022 Hemoglobin (Bld) [Mass/Vol] 13.1 g/dL 12.0-15.0 [facility] Blood lymphocytes/100 leukoc ytesOrdered By: Dr. Swenson on 08-26-2022 Lymphocytes/100 WBC (Bld) 23.7 % 19-41 [facility] Blood monocytes/100 leukocyt esOrdered By: Dr. Swenson on 08-26-2022 Monocytes/100 WBC (Bld) 8.5 % 0-10 [facility] Blood platelet mean volumeOr dered By: Dr. Swenson on 08-26-2022 Platelet mean volume (Bld) [Entitic vol] 9.8 fL 6.2-12.0 [facility] Determination of erythrocyte mean corpuscular volume (MCV)Ordered By: Dr. Swenson on 08-26-2022 MCV (RBC) [Entitic vol] 95.2 fL 81-99 [facility] Direct bilirubinOrdered By: Dr. Swenson on 08-26-2022 Bilirubin.direct [Mass/Vol] 0.11 mg/dL 0.00-0.30 [facility] Erythrocyte sedimentation ra teOrdered By: Dr. Swenson on 08-26-2022 ESR (Bld) [Velocity] 15 mm/h 0-30 [facility] Hematocrit Auto (Bld) [Volum e fraction]Ordered By: Dr. Swenson on 08-26-2022 Hematocrit (Bld) [Volume fraction] 41.5 % 37-47 [facility] INR in Blood by Coagulation assayOrdered By: Dr. Swenson on 08-26-2022 INR Coag (Bld) [Relative time] 1.3 {INR} [facility] - Chemistry and C hemistry - challengeOrdered By: Dr. Swenson on 08-26-2022 ALP [Catalytic activity/Vol] 59 U/L 45-117 [facility] ALT [Catalytic activity/Vol] 23 U/L 13-56 [facility] CO2 [Moles/Vol] 31.0 mmol/L 21.0-32.0 [facility] Globulin (S) [Mass/Vol] 3.5 g/dL 2.2-4.2 [facility] Urea nitrogen/Creatinine [Mass ratio] 27.7 mg/mg 10-20 [facility] - CoagulationOrde red By: Dr. Swenson on 08-26-2022 PT Coag (PPP) [Time] 15.5 s 11.7-14.9 [facility] - Hematology and Cell countsOrdered By: Dr. Swenson on 08-26-2022 Erythrocyte distribution width (RBC) [Entitic vol] 51.2 fL 35.1-43.9 [facility] Erythrocyte distribution width (RBC) [Ratio] 14.6 % 11.6-14.6 [facility] Immature granulocytes/100 WBC (Bld) 1.500 % 0.0-0.9 [facility] Comment on above: IG% - Immature Granu locytes (promyelocytes, myelocytes and metamyelocytes) > 1% indicates that a LEFT SHIFT is Present. MCH (RBC) [Entitic mass] 30.0 pg 27.0-32.0 [facility] Nucleated RBC/100 WBC (Bld) [Ratio] 0 % 0-5 [facility] MCHC Auto (RBC) [Mass/Vol]Or dered By: Dr. Swenson on 08-26-2022 MCHC (RBC) [Mass/Vol] 31.6 g/dL 32-36 [facility] No Panel InformationOrdered By: Dr. Swenson on 08-26-2022 Estimated GFR (MDRD) Amer 98 mL/min >60 [facility] Comment on above: GFR Calc Estimated GFR (MDRD) Non-Af Amer 81 mL/min >60 [facility] Comment on above: Non- GFR Calc Ionized Calcium 4.9 mg/dL 4.5-5.6 [facility] Comment on above: Performed at: [employer] [address] [id number] Director: Arjun Pisano PhD, Phone: [phone] Parathyroid Hormone (Intact) 92.1 pg/mL 18.4-80.1 [facility] Thyroid Stimulating Hormone (TSH) 1.08 uIU/mL 0.358-3.74 [facility] Vitamin D 25-Hydroxy 39.6 ng/mL [facility] Comment on above: Vitamin D 25(OH) Sta tus Range Deficiency <20 ng/mL (50nmol/L) Insufficiency 20 - 30 ng/mL (50 - 75 nmol/L) Sufficiency 30 - 100 ng/mL (75 - 250 nmol/L) Toxicity >100 ng/mL (>250 nmol/L) Platelets bldOrdered By: Dr. Swenson on 08-26-2022 Platelets (Bld) [#/Vol] 365 10*3/uL 150-450 [facility] Serum or plasma albumin manuel urement (mass/volume)Ordered By: Dr. Swenson on 08-26-2022 Albumin [Mass/Vol] 3.8 g/dL 3.2-5.[address] [facility] Serum or plasma calcium manuel urement (mass/volume)Ordered By: Dr. Swenson on 08-26-2022 Calcium [Mass/Vol] 9.2 mg/dL 8.5-10.[address] [facility] Serum or plasma creatinine m easurement (mass/volume)Ordered By: Dr. Swenson on 08-26-2022 Creatinine [Mass/Vol] 0.72 mg/dL 0.55-1.02 [facility] Comment on above: The validity of the calculated GFR & GFRAA in patients over 70 years has not been determined. Clinical correlation is essential. Serum or plasma urea nitroge n measurement (mass/volume)Ordered By: Dr. Swenson on 08-26-2022 Urea nitrogen [Mass/Vol] 20 mg/dL 7-18 [facility] Thin prep Papanicolaou smear with manual screeningOrdered By: Dr. Swenson on 08-26-2022 Thin prep Papanicolaou smear with manual screening 21 U/L 15-37 [facility] Thin prep Papanicolaou smear with manual screening 4 5-15 [facility] Basophil percentageOrdered B y: Dr. Swenson on 05-20-2022 Basophil percentage 120 mg/dL 74-106 [facility] Basophil percentage 4.9 mg/dL 2.5-4.9 [facility] Basophil percentage 138 mmol/L 136-145 [facility] Basophil percentage 4.1 mmol/L 3.5-5.1 [facility] Basophil percentage 100 mmol/L 98-107 [facility] Chloride [Moles/Vol] 100 mmol/L 98-107 [facility] Glucose [Mass/Vol] 120 mg/dL 74-[address] [facility] Comment on above: Fasting Glucose resu lt from 100 to 125 mg/dL suggests IMPAIRED HOMEOSTASIS per A.D.A. criteria. Potassium [Moles/Vol] 4.1 mmol/L 3.5-5.1 [facility] Sodium [Moles/Vol] 138 mmol/L 136-[address] [facility] Laboratory - Chemistry and C hemistry - challengeOrdered By: Dr. Swenson on 05-20-2022 CO2 [Moles/Vol] 29.0 mmol/L 21.0-32.0 [facility] Magnesium [Mass/Vol] 2.2 mg/dL 1.6-2.6 [facility] Urea nitrogen/Creatinine [Mass ratio] 27.8 mg/mg 10-20 [facility] No Panel InformationOrdered By: Dr. Swenson on 05-20-2022 Ionized Calcium 6.0 mg/dL 4.5-5.6 [facility] Comment on above: Performed at: [address] [id number] Director: Arjun Pisano PhD, Phone: [phone] 6.0 mg/dL 4.5-5.6 [facility] Estimated GFR (MDRD) Amer 73 mL/min >60 [facility] Comment on above: GFR Calc Estimated GFR (MDRD) Non-Af Amer 60 mL/min >60 [facility] Comment on above: Non- GFR Calc Parathyroid Hormone (Intact) 12.5 pg/mL 18.4-80.1 [facility] Thyroid Stimulating Hormone (TSH) 0.80 uIU/mL 0.358-3.74 [facility] Vitamin D 25-Hydroxy 71.5 ng/mL [facility] Comment on above: Vitamin D 25(OH) Sta tus Range Deficiency <20 ng/mL (50nmol/L) Insufficiency 20 - 30 ng/mL (50 - 75 nmol/L) Sufficiency 30 - 100 ng/mL (75 - 250 nmol/L) Toxicity >100 ng/mL (>250 nmol/L) 60 mL/min >60 [facility] 73 mL/min >60 [facility] 27.8 RATIO 10-20 [facility] 2.2 mg/dL 1.6-2.6 [facility] 29.0 mmol/L 21.0-32.0 [facility] 0.80 uIU/mL 0.358-3.74 [facility] 71.5 ng/mL [facility] 12.5 pg/mL 18.4-80.1 [facility] Serum or plasma calcium manuel urement (mass/volume)Ordered By: Dr. Swenson on 05-20-2022 Calcium [Mass/Vol] 10.3 mg/dL 8.5-10.[address] [facility] Serum or plasma creatinine m easurement (mass/volume)Ordered By: Dr. Swenson on 05-20-2022 Creatinine [Mass/Vol] 0.94 mg/dL 0.55-1.02 [facility] Comment on above: The validity of the calculated GFR & GFRAA in patients over 70 years has not been determined. Clinical correlation is essential. Serum or plasma urea nitroge n measurement (mass/volume)Ordered By: Dr. Swenson on 05-20-2022 Urea nitrogen [Mass/Vol] 26 mg/dL 7-18 [facility] Thin prep Papanicolaou smear with manual screeningOrdered By: Dr. Swenson on 05-20-2022 Thin prep Papanicolaou smear with manual screening 9 5-15 [facility] Basophil percentageOrdered B y: Zackary Lyon on 05-14-2022 Basophil percentage 6.1 g/dL 6.4-8.2 [facility] Basophil percentage 0.30 mg/dL 0.20-1.00 [facility] Bilirubin [Mass/Vol] 0.30 mg/dL 0.20-1.00 [facility] Comment on above: For patients on eltr ombopag therapy, use of Dimension [place] TBIL is not recommended. Protein [Mass/Vol] 6.1 g/dL 6.4-8.[address] [facility] Direct bilirubinOrdered By: Zackary Lyon on 05-14-2022 Bilirubin.direct [Mass/Vol] 0.10 mg/dL 0.00-0.30 [facility] INR in Blood by Coagulation assayOrdered By: Zackary Lyon on 05-14-2022 INR Coag (Bld) [Relative time] 1.7 {INR} [facility] Laboratory - Chemistry and C hemistry - challengeOrdered By: Zackary Lyon on 05-14-2022 ALP [Catalytic activity/Vol] 67 U/L [facility] ALT [Catalytic activity/Vol] 22 U/L [facility] Globulin (S) [Mass/Vol] 3.2 g/dL 2.2-4.2 [facility] Laboratory - CoagulationOrde red By: Zackary Lyon on 05-14-2022 PT Coag (PPP) [Time] 19.9 s 11.7-14.9 [facility] No Panel InformationOrdered By: Zackary Lyon on 05-14-2022 19.9 SECONDS 11.7-14.9 [facility] 3.2 g/dL 2.2-4.2 [facility] 67 U/L [facility] 22 U/L [facility] Serum or plasma albumin manuel urement (mass/volume)Ordered By: Zackary Lyon on 05-14-2022 Albumin [Mass/Vol] 2.9 g/dL 3.2-5.[address] [facility] Thin prep Papanicolaou smear with manual screeningOrdered By: Zackary Lyon on 05-14-2022 Thin prep Papanicolaou smear with manual screening 20 U/L 15-37 [facility] Absolute lymphocyte countOrd ered By: Zcakary Lyon on 04-29-2022 Lymphocytes Auto (Unsp spec) [#/Vol] 2.40 10*3/uL 0.83-4.51 [facility] Basophil percentageOrdered B y: Zackary Lyon on 04-29-2022 Basophil percentage 78 mg/dL 74-106 [facility] Basophil percentage 136 mmol/L 136-145 [facility] Basophil percentage 4.2 mmol/L 3.5-5.1 [facility] Basophil percentage 100 mmol/L 98-107 [facility] Basophils (Bld) [#/Vol] 7.1 10*3/uL 4.4-11.0 [facility] Basophils (Bld) [#/Vol] 3.5 10*3/uL 2.0-7.7 [facility] Basophils/100 WBC (Bld) 0.7 % 0-1 [facility] Basophils/100 WBC (Bld) 48.4 % 47-70 [facility] Basophils/100 WBC (Bld) 3.6 % 0-5 [facility] Basophil percentageon 2021 Chloride [Moles/Vol] 100 mmol/L 98-107 [facility] Work Phone: Eosinophils/100 WBC (Bld) 3.6 % 0-5 [facility] Work Phone: Glucose [Mass/Vol] 78 mg/dL 74-[address] [facility] Work Phone: Neutrophils (Bld) [#/Vol] 3.5 10*3/uL 2.0-7.7 [facility] Work Phone: Neutrophils/100 WBC (Bld) 48.4 % 47-70 [facility] Work Phone: Potassium [Moles/Vol] 4.2 mmol/L 3.5-5.1 [facility] Work Phone: Comment on above: Slight Hemolysis, Re sult may be falsely increased. Sodium [Moles/Vol] 136 mmol/L 136-[address] [facility] Work Phone: WBC (Bld) [#/Vol] 7.1 10*3/uL 4.4-11.[address] [facility] Work Phone: Blood erythrocytes count (nu mber/volume)Ordered By: Zackary Lyon on 04-29-2022 RBC (Bld) [#/Vol] 3.75 10*6/uL 4.2-5.4 [facility] Blood hemoglobin measurement (mass/volume)Ordered By: Zackary Lyon on 04-29-2022 Hemoglobin (Bld) [Mass/Vol] 10.8 g/dL 12.0-15.0 [facility] Blood lymphocytes/100 leukoc ytesOrdered By: Zackary Lyon on 04-29-2022 Lymphocytes/100 WBC (Bld) 33.7 % 19-41 [facility] Blood monocytes/100 leukocyt esOrdered By: Zackary Lyon on 04-29-2022 Monocytes/100 WBC (Bld) 13.0 % 0-10 [facility] Blood platelet mean volumeOr dered By: Zackary Lyon on 04-29-2022 Platelet mean volume (Bld) [Entitic vol] 10.1 fL 6.2-12.0 [facility] Determination of erythrocyte mean corpuscular volume (MCV)Ordered By: Zackary Lyon on 04-29-2022 MCV (RBC) [Entitic vol] 95.5 fL 81-99 [facility] Hematocrit Auto (Bld) [Volum e fraction]Ordered By: Zackary Lyon on 04-29-2022 Hematocrit (Bld) [Volume fraction] 35.8 % 37-47 [facility] INR in Blood by Coagulation assayOrdered By: Zackary Lyon on 04-29-2022 INR Coag (Bld) [Relative time] 1.4 {INR} [facility] Laboratory - Chemistry and C hemistry - challengeon 04-29-2022 CO2 [Moles/Vol] 31.0 mmol/L 21.0-32.0 [facility] Work Phone: Urea nitrogen/Creatinine [Mass ratio] 27.9 mg/mg 10-20 [facility] Work Phone: Laboratory - Coagulationon 1 06-30-2021 PT Coag (PPP) [Time] 17.2 s 11.7-14.9 [facility] Work Phone: Laboratory - Hematology and Cell countson 04-29-2022 Erythrocyte distribution width (RBC) [Entitic vol] 48.3 fL 35.1-43.9 [facility] Work Phone: Erythrocyte distribution width (RBC) [Ratio] 13.7 % 11.6-14.6 [facility] Work Phone: Immature granulocytes/100 WBC (Bld) 0.600 % 0.0-0.9 [facility] Work Phone: Comment on above: IG% - Immature Granu locytes (promyelocytes, myelocytes and metamyelocytes) > 1% indicates that a LEFT SHIFT is Present. MCH (RBC) [Entitic mass] 28.8 pg 27.0-32.0 [facility] Work Phone: Nucleated RBC/100 WBC (Bld) [Ratio] 0 % 0-5 [facility] Work Phone: MCHC Auto (RBC) [Mass/Vol]Or dered By: Zackary Lyon on 04-29-2022 MCHC (RBC) [Mass/Vol] 30.2 g/dL 32-36 [facility] No Panel Informationon 04-29 Estimated GFR (MDRD) Amer 73 mL/min >60 [facility] Work Phone: Comment on above: GFR Calc Estimated GFR (MDRD) Non-Af Amer 61 mL/min >60 [facility] Work Phone: Comment on above: Non- GFR Calc No Panel InformationOrdered By: Zackary Lyon on 04-29-2022 28.8 pg 27.0-32.0 [facility] 13.7 % 11.6-14.6 [facility] 48.3 fl 35.1-43.9 [facility] 0.600 % 0.0-0.9 [facility] 0 % 0-5 [facility] 17.2 SECONDS 11.7-14.9 [facility] 61 mL/min >60 [facility] 73 mL/min >60 [facility] 27.9 RATIO 10-20 [facility] 31.0 mmol/L 21.0-32.0 [facility] Platelets bldOrdered By: James chelseanataly Lyon on 04-29-2022 Platelets (Bld) [#/Vol] 288 10*3/uL 150-450 [facility] Serum or plasma calcium manuel urement (mass/volume)Ordered By: Zackary Lyon on 04-29-2022 Calcium [Mass/Vol] 9.6 mg/dL 8.5-10.[address] [facility] Serum or plasma creatinine m easurement (mass/volume)Ordered By: Zackary Lyon on 04-29-2022 Creatinine [Mass/Vol] 0.93 mg/dL 0.55-1.02 [facility] Comment on above: The validity of the calculated GFR & GFRAA in patients over 70 years has not been determined. Clinical correlation is essential. Serum or plasma urea nitroge n measurement (mass/volume)Ordered By: Zackary Lyon on 04-29-2022 Urea nitrogen [Mass/Vol] 26 mg/dL 7-18 [facility] Thin prep Papanicolaou smear with manual screeningOrdered By: Zackary Lyon on 04-29-2022 Thin prep Papanicolaou smear with manual screening 5 5-15 [facility] Absolute lymphocyte countOrd ered By: Zackary Lyon on 04-22-2022 Lymphocytes Auto (Unsp spec) [#/Vol] 1.78 10*3/uL 0.83-4.51 [facility] Basophil percentageOrdered B y: Zackary Lyon on 04-22-2022 Basophil percentage 104 mg/dL 74-106 [facility] Basophil percentage 134 mmol/L 136-145 [facility] Basophil percentage 4.6 mmol/L 3.5-5.1 [facility] Basophil percentage 100 mmol/L 98-107 [facility] Basophils (Bld) [#/Vol] 6.6 10*3/uL 4.4-11.0 [facility] Basophils (Bld) [#/Vol] 3.8 10*3/uL 2.0-7.7 [facility] Basophils/100 WBC (Bld) 0.8 % 0-1 [facility] Basophils/100 WBC (Bld) 57.9 % 47-70 [facility] Basophils/100 WBC (Bld) 3.2 % 0-5 [facility] Basophil percentageon 2021 Chloride [Moles/Vol] 100 mmol/L 98-107 [facility] Work Phone: Eosinophils/100 WBC (Bld) 3.2 % 0-5 [facility] Work Phone: Glucose [Mass/Vol] 104 mg/dL 74-[address] [facility] Work Phone: Comment on above: Fasting Glucose resu lt from 100 to 125 mg/dL suggests IMPAIRED HOMEOSTASIS per A.D.A. criteria. Neutrophils (Bld) [#/Vol] 3.8 10*3/uL 2.0-7.7 [facility] Work Phone: [phone] Neutrophils/100 WBC (Bld) 57.9 % 47-70 [facility] Work Phone: [phone] Potassium [Moles/Vol] 4.6 mmol/L 3.5-5.1 [facility] Work Phone: [phone] Comment on above: Slight Hemolysis, Re sult may be falsely increased. Sodium [Moles/Vol] 134 mmol/L 136-[address] [facility] Work Phone: [phone] WBC (Bld) [#/Vol] 6.6 10*3/uL 4.4-11.[address] [facility] Work Phone: Blood erythrocytes count (nu mber/volume)Ordered By: Zackary Lyon on 04-22-2022 RBC (Bld) [#/Vol] 3.68 10*6/uL 4.2-5.4 [facility] Blood hemoglobin measurement (mass/volume)Ordered By: Zackary Lyon on 04-22-2022 Hemoglobin (Bld) [Mass/Vol] 12.0 g/dL 12.0-15.0 [facility] Blood lymphocytes/100 leukoc ytesOrdered By: alex Lyon on 04-22-2022 Lymphocytes/100 WBC (Bld) 27.1 % 19-41 [facility] Blood monocytes/100 leukocyt esOrdered By: Zackary Lyon on 04-22-2022 Monocytes/100 WBC (Bld) 9.9 % 0-10 [facility] Blood platelet mean volumeOr dered By: Zackary Lyon on 04-22-2022 Platelet mean volume (Bld) [Entitic vol] 10.1 fL 6.2-12.0 [facility] Determination of erythrocyte mean corpuscular volume (MCV)Ordered By: Zackary Lyon on 04-22-2022 MCV (RBC) [Entitic vol] 102.4 fL 81-99 [facility] Hematocrit Auto (Bld) [Volum e fraction]Ordered By: Zackary Lyon on 04-22-2022 Hematocrit (Bld) [Volume fraction] 37.7 % 37-47 [facility] INR in Blood by Coagulation assayOrdered By: Zackary Lyon on 04-22-2022 INR Coag (Bld) [Relative time] 1.3 {INR} [facility] Laboratory - Chemistry and C hemistry - challengeon 04-22-2022 CO2 [Moles/Vol] 28.0 mmol/L 21.0-32.0 [facility] Work Phone: Urea nitrogen/Creatinine [Mass ratio] 23.2 mg/mg 10-20 [facility] Work Phone: Laboratory - Coagulationon 1 06-23-2021 PT Coag (PPP) [Time] 15.6 s 11.7-14.9 [facility] Work Phone: Laboratory - Hematology and Cell countson 04-22-2022 Erythrocyte distribution width (RBC) [Entitic vol] 52.9 fL 35.1-43.9 [facility] Work Phone: Erythrocyte distribution width (RBC) [Ratio] 16.4 % 11.6-14.6 [facility] Work Phone: Immature granulocytes/100 WBC (Bld) 1.100 % 0.0-0.9 [facility] Work Phone: Comment on above: IG% - Immature Granu locytes (promyelocytes, myelocytes and metamyelocytes) > 1% indicates that a LEFT SHIFT is Present. MCH (RBC) [Entitic mass] 32.6 pg 27.0-32.0 [facility] Work Phone: Nucleated RBC/100 WBC (Bld) [Ratio] 0 % 0-5 [facility] Work Phone: MCHC Auto (RBC) [Mass/Vol]Or dered By: Zackary Lyon on 04-22-2022 MCHC (RBC) [Mass/Vol] 31.8 g/dL 32-36 [facility] Comment on above: Delta: 30.1 on 04/18 No Panel Informationon 04-22 Estimated GFR (MDRD) Amer 76 mL/min >60 [facility] Work Phone: Comment on above: GFR Calc Estimated GFR (MDRD) Non-Af Amer 63 mL/min >60 [facility] Work Phone: Comment on above: Non- GFR Calc No Panel InformationOrdered By: Zackary Lyon on 04-22-2022 32.6 pg 27.0-32.0 [facility] 16.4 % 11.6-14.6 [facility] 52.9 fl 35.1-43.9 [facility] 1.100 % 0.0-0.9 [facility] 0 % 0-5 [facility] 15.6 SECONDS 11.7-14.9 [facility] 63 mL/min >60 [facility] 76 mL/min >60 [facility] 23.2 RATIO 10-20 [facility] 28.0 mmol/L 21.0-32.0 [facility] Platelets bldOrdered By: James isabella Sonali on 04-22-2022 Platelets (Bld) [#/Vol] 270 10*3/uL 150-450 [facility] Serum or plasma calcium manuel urement (mass/volume)Ordered By: Zackary Lyon on 04-22-2022 Calcium [Mass/Vol] 9.6 mg/dL 8.5-10.[address] [facility] Serum or plasma creatinine m easurement (mass/volume)Ordered By: Zackary Lyon on 04-22-2022 Creatinine [Mass/Vol] 0.90 mg/dL 0.55-1.02 [facility] Comment on above: The validity of the calculated GFR & GFRAA in patients over 70 years has not been determined. Clinical correlation is essential. Serum or plasma urea nitroge n measurement (mass/volume)Ordered By: Zackary Lyon on 04-22-2022 Urea nitrogen [Mass/Vol] 21 mg/dL 7-18 [facility] Thin prep Papanicolaou smear with manual screeningOrdered By: alex Lyon on 04-22-2022 Thin prep Papanicolaou smear with manual screening 6 5-15 [facility] Absolute lymphocyte countOrd ered By: Dr. Jimenez on 04-18-2022 Lymphocytes Auto (Unsp spec) [#/Vol] 1.62 10*3/uL 0.83-4.51 [facility] Basophil percentageOrdered B y: Dr. Jimenez on 04-18-2022 Basophil percentage 86 mg/dL 74-106 [facility] Basophil percentage 134 mmol/L 136-145 [facility] Basophil percentage 3.3 mmol/L 3.5-5.1 [facility] Basophil percentage 99 mmol/L 98-107 [facility] Basophils (Bld) [#/Vol] 7.4 10*3/uL 4.4-11.0 [facility] Basophils (Bld) [#/Vol] 4.6 10*3/uL 2.0-7.7 [facility] Basophils/100 WBC (Bld) 0.8 % 0-1 [facility] Basophils/100 WBC (Bld) 61.5 % 47-70 [facility] Basophils/100 WBC (Bld) 3.8 % 0-5 [facility] Basophil percentageon 2021 Chloride [Moles/Vol] 99 mmol/L 98-107 [facility] Work Phone: Eosinophils/100 WBC (Bld) 3.8 % 0-5 [facility] Work Phone: Glucose [Mass/Vol] 86 mg/dL 74-[address] [facility] Work Phone: Neutrophils (Bld) [#/Vol] 4.6 10*3/uL 2.0-7.7 [facility] Work Phone: Neutrophils/100 WBC (Bld) 61.5 % 47-70 [facility] Work Phone: Potassium [Moles/Vol] 3.3 mmol/L 3.5-5.1 [facility] Work Phone: Sodium [Moles/Vol] 134 mmol/L 136-[address] [facility] Work Phone: WBC (Bld) [#/Vol] 7.4 10*3/uL 4.4-11.[address] [facility] Work Phone: Blood erythrocytes count (nu mber/volume)Ordered By: Dr. Jimenez on 04-18-2022 RBC (Bld) [#/Vol] 3.79 10*6/uL 4.2-5.4 [facility] Blood hemoglobin measurement (mass/volume)Ordered By: Dr. Jimenez on 04-18-2022 Hemoglobin (Bld) [Mass/Vol] 11.5 g/dL 12.0-15.0 [facility] Blood lymphocytes/100 leukoc ytesOrdered By: Dr. Jimenez on 04-18-2022 Lymphocytes/100 WBC (Bld) 21.8 % 19-41 [facility] Blood monocytes/100 leukocyt esOrdered By: Dr. Jimenez on 04-18-2022 Monocytes/100 WBC (Bld) 11.4 % 0-10 [facility] Blood platelet mean volumeOr dered By: Dr. Jimenez on 04-18-2022 Platelet mean volume (Bld) [Entitic vol] 9.2 fL 6.2-12.0 [facility] COVID-19 virus antigen assay Ordered By: Dr. Maza on 04-18-2022 SARS-CoV-2 (COVID-19) Ag IA.rapid Ql (Resp) [facility] Determination of erythrocyte mean corpuscular volume (MCV)Ordered By: Dr. Jimenez on 04-18-2022 MCV (RBC) [Entitic vol] 100.8 fL 81-99 [facility] Comment on above: Delta: 91.9 on 04/17 Hematocrit Auto (Bld) [Volum e fraction]Ordered By: Dr. Jimenez on 04-18-2022 Hematocrit (Bld) [Volume fraction] 38.2 % 37-47 [facility] Laboratory - Chemistry and C hemistry - challengeon 04-18-2022 CO2 [Moles/Vol] 28.0 mmol/L 21.0-32.0 [facility] Work Phone: Urea nitrogen/Creatinine [Mass ratio] 19.1 mg/mg 10-20 [facility] Work Phone: Laboratory - Hematology and Cell countson 04-18-2022 Erythrocyte distribution width (RBC) [Entitic vol] 50.6 fL 35.1-43.9 [facility] Work Phone: Erythrocyte distribution width (RBC) [Ratio] 13.8 % 11.6-14.6 [facility] Work Phone: Immature granulocytes/100 WBC (Bld) 0.700 % 0.0-0.9 [facility] Work Phone: Comment on above: IG% - Immature Granu locytes (promyelocytes, myelocytes and metamyelocytes) > 1% indicates that a LEFT SHIFT is Present. MCH (RBC) [Entitic mass] 30.3 pg 27.0-32.0 [facility] Work Phone: Nucleated RBC/100 WBC (Bld) [Ratio] 0 % 0-5 [facility] Work Phone: MCHC Auto (RBC) [Mass/Vol]Or dered By: Dr. Jimenez on 04-18-2022 MCHC (RBC) [Mass/Vol] 30.1 g/dL 32-36 [facility] No Panel Informationon 04-18 Estimated Creatinine Clearance Calc 30.86 ml/min [facility] Work Phone: Estimated GFR (MDRD) Amer 72 mL/min >60 [facility] Work Phone: Comment on above: GFR Calc Estimated GFR (MDRD) Non-Af Amer 60 mL/min >60 [facility] Work Phone: Comment on above: Non- GFR Calc No Panel InformationOrdered By: Dr. Jimenez on 04-18-2022 30.3 pg 27.0-32.0 [facility] 13.8 % 11.6-14.6 [facility] 50.6 fl 35.1-43.9 [facility] 0.700 % 0.0-0.9 [facility] 0 % 0-5 [facility] 60 mL/min >60 [facility] 72 mL/min >60 [facility] 30.86 ml/min [facility] 19.1 RATIO 10-20 [facility] 28.0 mmol/L 21.0-32.0 [facility] Platelets bldOrdered By: Dr. Jimenez on 04-18-2022 Platelets (Bld) [#/Vol] 361 10*3/uL 150-450 [facility] Serum or plasma calcium manuel urement (mass/volume)Ordered By: Dr. Jimenez on 04-18-2022 Calcium [Mass/Vol] 9.5 mg/dL 8.5-10.[address] [facility] Serum or plasma creatinine m easurement (mass/volume)Ordered By: Dr. Jimenez on 04-18-2022 Creatinine [Mass/Vol] 0.94 mg/dL 0.55-1.02 [facility] Comment on above: The validity of the calculated GFR & GFRAA in patients over 70 years has not been determined. Clinical correlation is essential. Serum or plasma urea nitroge n measurement (mass/volume)Ordered By: Dr. Jimenez on 04-18-2022 Urea nitrogen [Mass/Vol] 18 mg/dL 7-18 [facility] Thin prep Papanicolaou smear with manual screeningOrdered By: Dr. Jimenez on 04-18-2022 Thin prep Papanicolaou smear with manual screening 7 5-15 [facility] Basophil percentageOrdered B y: Dr. Judd on 04-16-2022 Basophil percentage 6.7 g/dL 6.4-8.2 [facility] Basophil percentage 0.40 mg/dL 0.20-1.00 [facility] Basophil percentageon 2021 Bilirubin [Mass/Vol] 0.40 mg/dL 0.20-1.00 [facility] Work Phone: Comment on above: For patients on eltr ombopag therapy, use of Dimension [place] TBIL is not recommended. Protein [Mass/Vol] 6.7 g/dL 6.4-8.[address] [facility] Work Phone: Direct bilirubinOrdered By: Dr. Judd on 04-16-2022 Bilirubin.direct [Mass/Vol] 0.12 mg/dL 0.00-0.30 [facility] INR in Blood by Coagulation assayOrdered By: Dr. Maza on 04-16-2022 INR Coag (Bld) [Relative time] 1.3 {INR} [facility] Laboratory - Chemistry and C hemistry - challengeon 04-16-2022 ALP [Catalytic activity/Vol] 75 U/L 45-117 [facility] Work Phone: ALT [Catalytic activity/Vol] 14 U/L 13-56 [facility] Work Phone: Globulin (S) [Mass/Vol] 3.6 g/dL 2.2-4.2 [facility] Work Phone: Laboratory - Coagulationon 1 06-17-2021 aPTT Coag (Bld) [Time] 31.7 s 24.1-36.2 [facility] Work Phone: PT Coag (PPP) [Time] 15.5 s 11.7-14.9 [facility] Work Phone: No Panel InformationOrdered By: Dr. Maza on 04-16-2022 15.5 SECONDS 11.7-14.9 [facility] No Panel InformationOrdered By: Dr. Judd on 04-16-2022 31.7 Seconds 24.1-36.2 [facility] 3.6 g/dL 2.2-4.2 [facility] 75 U/L 45-117 [facility] 14 U/L 13-56 [facility] Serum or plasma albumin manuel urement (mass/volume)Ordered By: Dr. Judd on 04-16-2022 Albumin [Mass/Vol] 3.1 g/dL 3.2-5.[address] [facility] Thin prep Papanicolaou smear with manual screeningOrdered By: Dr. Judd on 04-16-2022 Thin prep Papanicolaou smear with manual screening 16 U/L 15-37 [facility] INR in Blood by Coagulation assayon 04-11-2022 INR Coag (Bld) [Relative time] 3.4 {INR} [facility] Work Phone: Laboratory - Coagulationon 1 06-12-2021 PT Coag (PPP) [Time] 33.7 s 11.7-14.9 [facility] Work Phone: Absolute lymphocyte counton 04-10-2022 Lymphocytes Auto (Unsp spec) [#/Vol] 1.24 10*3/uL 0.83-4.51 [facility] Work Phone: Basophil percentageon 2021 Basophils/100 WBC (Bld) 0.4 % 0-1 [facility] Work Phone: Bilirubin [Mass/Vol] 0.40 mg/dL 0.20-1.00 [facility] Work Phone: [phone] Comment on above: For patients on eltr ombopag therapy, use of Dimension [place] TBIL is not recommended. Chloride [Moles/Vol] 99 mmol/L 98-107 [facility] Work Phone: [phone] Eosinophils/100 WBC (Bld) 0.5 % 0-5 [facility] Work Phone: [phone] Glucose [Mass/Vol] 120 mg/dL 74-[address] [facility] Work Phone: [phone] Comment on above: Fasting Glucose resu lt from 100 to 125 mg/dL suggests IMPAIRED HOMEOSTASIS per A.D.A. criteria. Neutrophils (Bld) [#/Vol] 6.4 10*3/uL 2.0-7.7 [facility] Work Phone: Neutrophils/100 WBC (Bld) 77.0 % 47-70 [facility] Work Phone: [phone] Potassium [Moles/Vol] 4.1 mmol/L 3.5-5.1 [facility] Work Phone: [phone] Protein [Mass/Vol] 7.4 g/dL 6.4-8.[address] [facility] Work Phone: [phone] Sodium [Moles/Vol] 138 mmol/L 136-[address] [facility] Work Phone: [phone] WBC (Bld) [#/Vol] 8.4 10*3/uL 4.4-11.[address] [facility] Work Phone: [phone] Basophil percentageOrdered B y: Dr. Snow on 04-10-2022 Basophil percentage 0-5 SEEN /hpf 0-5 [facility] Bilirubin Test strip Ql (U)O rdered By: Dr. Snow on 04-10-2022 Bilirubin Ql (U) Negative Negative [facility] Blood erythrocytes count (nu mber/volume)on 04-10-2022 RBC (Bld) [#/Vol] 4.09 10*6/uL 4.2-5.4 [facility] Work Phone: Blood hemoglobin measurement (mass/volume)on 04-10-2022 Hemoglobin (Bld) [Mass/Vol] 11.9 g/dL 12.0-15.0 [facility] Work Phone: Blood lymphocytes/100 leukoc yteson 04-10-2022 Lymphocytes/100 WBC (Bld) 14.9 % 19-41 [facility] Work Phone: Blood monocytes/100 leukocyt eson 04-10-2022 Monocytes/100 WBC (Bld) 6.5 % 0-10 [facility] Work Phone: Blood platelet mean volumeon 04-10-2022 Platelet mean volume (Bld) [Entitic vol] 9.4 fL 6.2-12.0 [facility] Work Phone: Determination of erythrocyte mean corpuscular volume (MCV)on 04-10-2022 MCV (RBC) [Entitic vol] 91.7 fL 81-99 [facility] Work Phone: Hematocrit Auto (Bld) [Volum e fraction]on 04-10-2022 Hematocrit (Bld) [Volume fraction] 37.5 % 37-47 [facility] Work Phone: INR in Blood by Coagulation assayon 04-10-2022 INR Coag (Bld) [Relative time] 3.5 {INR} [facility] Work Phone: Ketones Test strip Ql (U)Ord ered By: Dr. Snow on 04-10-2022 Ketones Ql (U) 5 mg/dl Negative [facility] Laboratory - Chemistry and C hemistry - challengeon 04-10-2022 ALP [Catalytic activity/Vol] 87 U/L 45-117 [facility] Work Phone: ALT [Catalytic activity/Vol] 17 U/L 13-56 [facility] Work Phone: CO2 [Moles/Vol] 31.0 mmol/L 21.0-32.0 [facility] Work Phone: Globulin (S) [Mass/Vol] 4.0 g/dL 2.2-4.2 [facility] Work Phone: Urea nitrogen/Creatinine [Mass ratio] 22.8 mg/mg 10-20 [facility] Work Phone: Laboratory - Coagulationon 1 06-10-2021 PT Coag (PPP) [Time] 35.0 s 11.7-14.9 [facility] Work Phone: Laboratory - Hematology and Cell countson 04-10-2022 Erythrocyte distribution width (RBC) [Entitic vol] 46.0 fL 35.1-43.9 [facility] Work Phone: Erythrocyte distribution width (RBC) [Ratio] 13.5 % 11.6-14.6 [facility] Work Phone: Immature granulocytes/100 WBC (Bld) 0.700 % 0.0-0.9 [facility] Work Phone: Comment on above: IG% - Immature Granu locytes (promyelocytes, myelocytes and metamyelocytes) > 1% indicates that a LEFT SHIFT is Present. MCH (RBC) [Entitic mass] 29.1 pg 27.0-32.0 [facility] Work Phone: Nucleated RBC/100 WBC (Bld) [Ratio] 0 % 0-5 [facility] Work Phone: MCHC Auto (RBC) [Mass/Vol]on 04-10-2022 MCHC (RBC) [Mass/Vol] 31.7 g/dL 32-36 [facility] Work Phone: Mucus LM Ql (Urine sed)Order ed By: Dr. Snow on 04-10-2022 Mucus Ql (Urine sed) 0 SEEN /hpf [facility] Nitrite Test strip Ql (U)Ord ered By: Dr. Snow on 04-10-2022 Nitrite Ql (U) Negative Negative [facility] No Panel Informationon 04-10 Estimated Creatinine Clearance Calc 29.01 ml/min [facility] Work Phone: Estimated GFR (MDRD) Amer 95 mL/min >60 [facility] Work Phone: Comment on above: GFR Calc Estimated GFR (MDRD) Non-Af Amer 78 mL/min >60 [facility] Work Phone: Comment on above: Non- GFR Calc Platelets bldon 04-10-2022 Platelets (Bld) [#/Vol] 341 10*3/uL 150-450 [facility] Work Phone: Protein Test strip Ql (U)Ord ered By: Dr. Snow on 04-10-2022 Protein Ql (U) 30 mg/dl Negative [facility] Serum or plasma albumin manuel urement (mass/volume)on 04-10-2022 Albumin [Mass/Vol] 3.4 g/dL 3.2-5.[address] [facility] Work Phone: Serum or plasma albumin/glob ulin mass ratioOrdered By: Dr. Snow on 04-10-2022 Albumin/Globulin [Mass ratio] 0.8 {ratio} 0.9-2.4 [facility] Serum or plasma calcium manuel urement (mass/volume)on 04-10-2022 Calcium [Mass/Vol] 10.1 mg/dL 8.5-10.[address] [facility] Work Phone: Serum or plasma creatinine m easurement (mass/volume)on 04-10-2022 Creatinine [Mass/Vol] 0.75 mg/dL 0.55-1.02 [facility] Work Phone: Comment on above: The validity of the calculated GFR & GFRAA in patients over 70 years has not been determined. Clinical correlation is essential. Serum or plasma urea nitroge n measurement (mass/volume)on 04-10-2022 Urea nitrogen [Mass/Vol] 17 mg/dL 7-18 [facility] Work Phone: Squamous epithelial cells de tection in urine sediment by light microscopyOrdered By: Dr. Snow on 04-10-2022 Epithelial cells.squamous LM Ql (Urine sed) 0-5 SEEN /hpf 5-10 [facility] Thin prep Papanicolaou smear with manual screeningon 04-10-2022 Thin prep Papanicolaou smear with manual screening 18 U/L 15-37 [facility] Work Phone: Thin prep Papanicolaou smear with manual screening 8 5-15 [facility] Work Phone: Urine blood detectionOrdered By: Dr. Snow on 04-10-2022 RBC Ql (U) 10 /ul Negative [facility] RBC Ql (U) 0 SEEN /hpf 0-5 [facility] Urine clarityOrdered By: Dr. Snow on 04-10-2022 Clarity (U) Clear Clear [facility] Urine color determinationOrd ered By: Dr. Snow on 04-10-2022 Color (U) Yellow Yellow [facility] Urine glucose detectionOrder ed By: Dr. Snow on 04-10-2022 Glucose Ql (U) Normal mg/dl Normal [facility] Urine leukocyte esterase det ection by dipstickOrdered By: Dr. Snow on 04-10-2022 Leukocyte esterase Test strip Ql (U) 25 /ul Negative [facility] Urine pHOrdered By: Dr. Bhavik schneider on 04-10-2022 pH (U) 8.0 [pH] 5.0 - 8.0 [facility] Urine sediment bacteria coun t by microscopy (number/high power field)Ordered By: Dr. Snow on 04-10-2022 Bacteria LM.HPF (Urine sed) [#/Area] RARE /hpf None Seen [facility] Urine specific gravity measu rementOrdered By: Dr. Snow on 04-10-2022 Specific gravity (U) [Rel density] 1.010 1.002-1.030 [facility] Urobilinogen Auto test strip Ql (U)Ordered By: Dr. Snow on 04-10-2022 Urobilinogen Ql (U) Normal mg/dl Normal [facility] Absolute lymphocyte countOrd ered By: Dr. Marshall on 03-17-2022 Lymphocytes Auto (Unsp spec) [#/Vol] 2.46 10*3/uL 0.83-4.51 [facility] Basophil percentageOrdered B y: Dr. Marshall on 03-17-2022 Basophil percentage 89 mg/dL 74-106 [facility] Basophil percentage 138 mmol/L 136-145 [facility] Basophil percentage 4.2 mmol/L 3.5-5.1 [facility] Basophil percentage 105 mmol/L 98-107 [facility] Basophils (Bld) [#/Vol] 8.7 10*3/uL 4.4-11.0 [facility] Basophils (Bld) [#/Vol] 5.3 10*3/uL 2.0-7.7 [facility] Basophils/100 WBC (Bld) 0.7 % 0-1 [facility] Basophils/100 WBC (Bld) 61.1 % 47-70 [facility] Basophils/100 WBC (Bld) 1.7 % 0-5 [facility] Basophil percentageon 2021 Chloride [Moles/Vol] 105 mmol/L 98-107 [facility] Work Phone: Eosinophils/100 WBC (Bld) 1.7 % 0-5 [facility] Work Phone: Glucose [Mass/Vol] 89 mg/dL 74-[address] [facility] Work Phone: Neutrophils (Bld) [#/Vol] 5.3 10*3/uL 2.0-7.7 [facility] Work Phone: Neutrophils/100 WBC (Bld) 61.1 % 47-70 [facility] Work Phone: Potassium [Moles/Vol] 4.2 mmol/L 3.5-5.1 [facility] Work Phone: Sodium [Moles/Vol] 138 mmol/L 136-[address] [facility] Work Phone: WBC (Bld) [#/Vol] 8.7 10*3/uL 4.4-11.[address] [facility] Work Phone: Blood erythrocytes count (nu mber/volume)Ordered By: Dr. Marshall on 03-17-2022 RBC (Bld) [#/Vol] 4.23 10*6/uL 4.2-5.4 [facility] Blood hemoglobin measurement (mass/volume)Ordered By: Dr. Marshall on 03-17-2022 Hemoglobin (Bld) [Mass/Vol] 12.6 g/dL 12.0-15.0 [facility] Blood lymphocytes/100 leukoc ytesOrdered By: Dr. Marshall on 03-17-2022 Lymphocytes/100 WBC (Bld) 28.2 % 19-41 [facility] Blood monocytes/100 leukocyt esOrdered By: Dr. Marshall on 03-17-2022 Monocytes/100 WBC (Bld) 7.6 % 0-10 [facility] Blood platelet mean volumeOr dered By: Dr. Marshall on 03-17-2022 Platelet mean volume (Bld) [Entitic vol] 9.7 fL 6.2-12.0 [facility] Determination of erythrocyte mean corpuscular volume (MCV)Ordered By: Dr. Marshall on 03-17-2022 MCV (RBC) [Entitic vol] 92.9 fL 81-99 [facility] Hematocrit Auto (Bld) [Volum e fraction]Ordered By: Dr. Marshall on 03-17-2022 Hematocrit (Bld) [Volume fraction] 39.3 % 37-47 [facility] INR in Blood by Coagulation assayOrdered By: Dr. Marshall on 03-17-2022 INR Coag (Bld) [Relative time] 2.5 {INR} [facility] Laboratory - Chemistry and C hemistry - challengeon 03-17-2022 CO2 [Moles/Vol] 27.0 mmol/L 21.0-32.0 [facility] Work Phone: Urea nitrogen/Creatinine [Mass ratio] 22.0 mg/mg 10-20 [facility] Work Phone: Laboratory - Coagulationon 1 05-17-2021 PT Coag (PPP) [Time] 26.7 s 11.7-14.9 [facility] Work Phone: Laboratory - Hematology and Cell countson 03-17-2022 Erythrocyte distribution width (RBC) [Entitic vol] 47.2 fL 35.1-43.9 [facility] Work Phone: Erythrocyte distribution width (RBC) [Ratio] 13.8 % 11.6-14.6 [facility] Work Phone: Immature granulocytes/100 WBC (Bld) 0.700 % 0.0-0.9 [facility] Work Phone: Comment on above: IG% - Immature Granu locytes (promyelocytes, myelocytes and metamyelocytes) > 1% indicates that a LEFT SHIFT is Present. MCH (RBC) [Entitic mass] 29.8 pg 27.0-32.0 [facility] Work Phone: Nucleated RBC/100 WBC (Bld) [Ratio] 0 % 0-5 [facility] Work Phone: MCHC Auto (RBC) [Mass/Vol]Or dered By: Dr. Marshall on 03-17-2022 MCHC (RBC) [Mass/Vol] 32.1 g/dL 32-36 [facility] No Panel Informationon 03-17 Estimated Creatinine Clearance Calc 31.04 ml/min [facility] Work Phone: Estimated GFR (MDRD) Amer 91 mL/min >60 [facility] Work Phone: Comment on above: GFR Calc Estimated GFR (MDRD) Non-Af Amer 75 mL/min >60 [facility] Work Phone: Comment on above: Non- GFR Calc No Panel InformationOrdered By: Dr. Marshall on 03-17-2022 29.8 pg 27.0-32.0 [facility] 13.8 % 11.6-14.6 [facility] 47.2 fl 35.1-43.9 [facility] 0.700 % 0.0-0.9 [facility] 0 % 0-5 [facility] 26.7 SECONDS 11.7-14.9 [facility] 75 mL/min >60 [facility] 91 mL/min >60 [facility] 31.04 ml/min [facility] 22.0 RATIO 10-20 [facility] 27.0 mmol/L 21.0-32.0 [facility] Platelets bldOrdered By: Dr. Marshall on 03-17-2022 Platelets (Bld) [#/Vol] 335 10*3/uL 150-450 [facility] Serum or plasma calcium manuel urement (mass/volume)Ordered By: Dr. Marshall on 03-17-2022 Calcium [Mass/Vol] 9.7 mg/dL 8.5-10.[address] [facility] Serum or plasma creatinine m easurement (mass/volume)Ordered By: Dr. Marshall on 03-17-2022 Creatinine [Mass/Vol] 0.77 mg/dL 0.55-1.02 [facility] Comment on above: The validity of the calculated GFR & GFRAA in patients over 70 years has not been determined. Clinical correlation is essential. Serum or plasma urea nitroge n measurement (mass/volume)Ordered By: Dr. Marshall on 03-17-2022 Urea nitrogen [Mass/Vol] 17 mg/dL 7-18 [facility] Thin prep Papanicolaou smear with manual screeningOrdered By: Dr. Marshall on 03-17-2022 Thin prep Papanicolaou smear with manual screening 6 5-15 [facility] COVID-19 virus antigen assay Ordered By: Dr. Marshall on 02-18-2022 SARS-CoV-2 (COVID-19) Ag IA.rapid Ql (Resp) [facility] INR in Blood by Coagulation assayon 02-18-2022 INR Coag (Bld) [Relative time] 1.2 {INR} [facility] Work Phone: Laboratory - Coagulationon 1 PT Coag (PPP) [Time] 14.5 s 11.7-14.9 [facility] Work Phone: Absolute lymphocyte counton 02-17-2022 Lymphocytes Auto (Unsp spec) [#/Vol] 1.74 10*3/uL 0.83-4.51 [facility] Work Phone: Basophil percentageon 2021 Basophils/100 WBC (Bld) 0.8 % 0-1 [facility] Work Phone: Chloride [Moles/Vol] 96 mmol/L 98-107 [facility] Work Phone: Eosinophils/100 WBC (Bld) 5.2 % 0-5 [facility] Work Phone: [phone] Glucose [Mass/Vol] 104 mg/dL 74-[address] [facility] Work Phone: Comment on above: Fasting Glucose resu lt from 100 to 125 mg/dL suggests IMPAIRED HOMEOSTASIS per A.D.A. criteria. Neutrophils (Bld) [#/Vol] 5.1 10*3/uL 2.0-7.7 [facility] Work Phone: [phone] Neutrophils/100 WBC (Bld) 60.6 % 47-70 [facility] Work Phone: [phone] Potassium [Moles/Vol] 4.4 mmol/L 3.5-5.1 [facility] Work Phone: Sodium [Moles/Vol] 133 mmol/L 136-[address] [facility] Work Phone: [phone] WBC (Bld) [#/Vol] 8.4 10*3/uL 4.4-11.[address] [facility] Work Phone: Blood erythrocytes count (nu mber/volume)on 02-17-2022 RBC (Bld) [#/Vol] 3.75 10*6/uL 4.2-5.4 [facility] Work Phone: Blood hemoglobin measurement (mass/volume)on 02-17-2022 Hemoglobin (Bld) [Mass/Vol] 11.1 g/dL 12.0-15.0 [facility] Work Phone: Blood lymphocytes/100 leukoc yteson 02-17-2022 Lymphocytes/100 WBC (Bld) 20.7 % 19-41 [facility] Work Phone: Blood monocytes/100 leukocyt eson 02-17-2022 Monocytes/100 WBC (Bld) 11.0 % 0-10 [facility] Work Phone: Blood platelet mean volumeon 02-17-2022 Platelet mean volume (Bld) [Entitic vol] 9.3 fL 6.2-12.0 [facility] Work Phone: Determination of erythrocyte mean corpuscular volume (MCV)on 02-17-2022 MCV (RBC) [Entitic vol] 93.9 fL 81-99 [facility] Work Phone: Hematocrit Auto (Bld) [Volum e fraction]on 02-17-2022 Hematocrit (Bld) [Volume fraction] 35.2 % 37-47 [facility] Work Phone: Laboratory - Chemistry and C hemistry - challengeon 02-17-2022 CO2 [Moles/Vol] 31.0 mmol/L 21.0-32.0 [facility] Work Phone: Urea nitrogen/Creatinine [Mass ratio] 15.0 mg/mg 10-20 [facility] Work Phone: Laboratory - Hematology and Cell countson 02-17-2022 Erythrocyte distribution width (RBC) [Entitic vol] 46.3 fL 35.1-43.9 [facility] Work Phone: Erythrocyte distribution width (RBC) [Ratio] 13.5 % 11.6-14.6 [facility] Work Phone: Immature granulocytes/100 WBC (Bld) 1.700 % 0.0-0.9 [facility] Work Phone: Comment on above: IG% - Immature Granu locytes (promyelocytes, myelocytes and metamyelocytes) > 1% indicates that a LEFT SHIFT is Present. MCH (RBC) [Entitic mass] 29.6 pg 27.0-32.0 [facility] Work Phone: Nucleated RBC/100 WBC (Bld) [Ratio] 0 % 0-5 [facility] Work Phone: MCHC Auto (RBC) [Mass/Vol]on 02-17-2022 MCHC (RBC) [Mass/Vol] 31.5 g/dL 32-36 [facility] Work Phone: No Panel Informationon 02-17 Estimated Creatinine Clearance Calc 38.80 ml/min [facility] Work Phone: Estimated GFR (MDRD) Amer 88 mL/min >60 [facility] Work Phone: Comment on above: GFR Calc Estimated GFR (MDRD) Non-Af Amer 72 mL/min >60 [facility] Work Phone: Comment on above: Non- GFR Calc Platelets bldon 02-17-2022 Platelets (Bld) [#/Vol] 322 10*3/uL 150-450 [facility] Work Phone: Serum or plasma calcium manuel urement (mass/volume)on 02-17-2022 Calcium [Mass/Vol] 8.9 mg/dL 8.5-10.[address] [facility] Work Phone: Serum or plasma creatinine m easurement (mass/volume)on 02-17-2022 Creatinine [Mass/Vol] 0.80 mg/dL 0.55-1.02 [facility] Work Phone: Comment on above: The validity of the calculated GFR & GFRAA in patients over 70 years has not been determined. Clinical correlation is essential. Serum or plasma urea nitroge n measurement (mass/volume)on 02-17-2022 Urea nitrogen [Mass/Vol] 12 mg/dL 7-18 [facility] Work Phone: Thin prep Papanicolaou smear with manual screeningon 02-17-2022 Thin prep Papanicolaou smear with manual screening 6 5-15 [facility] Work Phone: Bacteria identified Cx Nom ( U)Ordered By: Dr. Marshall on 02-15-2022 Culture, urine Aerococcus viridans. [facility] Culture, urine Escherichia coli [facility] INR in Blood by Coagulation assayOrdered By: Dr. Marshall on 02-14-2022 INR Coag (Bld) [Relative time] 1.1 {INR} [facility] Laboratory - Coagulationon 1 PT Coag (PPP) [Time] 13.6 s 11.7-14.9 [facility] Work Phone: No Panel InformationOrdered By: Dr. Marshall on 02-14-2022 13.6 SECONDS 11.7-14.9 [facility] Basophil percentageOrdered B y: Dr. Marshall on 02-13-2022 Basophil percentage 5-10 SEEN /hpf 0-5 [facility] Bilirubin Test strip Ql (U)O rdered By: Dr. Marshall on 02-13-2022 Bilirubin Ql (U) Negative Negative [facility] Ketones Test strip Ql (U)Ord ered By: Dr. Marshall on 02-13-2022 Ketones Ql (U) Negative Negative [facility] Mucus LM Ql (Urine sed)Order ed By: Dr. Marshall on 02-13-2022 Mucus Ql (Urine sed) 0 SEEN /hpf [facility] Nitrite Test strip Ql (U)Ord ered By: Dr. Marshall on 02-13-2022 Nitrite Ql (U) Negative Negative [facility] Protein Test strip Ql (U)Ord ered By: Dr. Marshall on 02-13-2022 Protein Ql (U) Negative Negative [facility] Squamous epithelial cells de tection in urine sediment by light microscopyOrdered By: Dr. Marshall on 02-13-2022 Epithelial cells.squamous LM Ql (Urine sed) 0 SEEN /hpf 5-10 [facility] Urine blood detectionOrdered By: Dr. Marshall on 02-13-2022 RBC Ql (U) 10 /ul Negative [facility] RBC Ql (U) 0 SEEN /hpf 0-5 [facility] Urine clarityOrdered By: Dr. Marshall on 02-13-2022 Clarity (U) Clear Clear [facility] Urine color determinationOrd ered By: Dr. Marshall on 02-13-2022 Color (U) Yellow Yellow [facility] Urine glucose detectionOrder ed By: Dr. Marshall on 02-13-2022 Glucose Ql (U) Normal mg/dl Normal [facility] Urine leukocyte esterase det ection by dipstickOrdered By: Dr. Marshall on 02-13-2022 Leukocyte esterase Test strip Ql (U) 25 /ul Negative [facility] Urine pHOrdered By: Dr. Marshall on 02-13-2022 pH (U) 7.0 [pH] 5.0 - 8.0 [facility] Urine sediment bacteria coun t by microscopy (number/high power field)Ordered By: Dr. Marshall on 02-13-2022 Bacteria LM.HPF (Urine sed) [#/Area] 2 /[HPF] None Seen [facility] Urine specific gravity measu rementOrdered By: Dr. Marshall on 02-13-2022 Specific gravity (U) [Rel density] 1.010 1.002-1.030 [facility] Urobilinogen Auto test strip Ql (U)Ordered By: Dr. Marshall on 02-13-2022 Urobilinogen Ql (U) Normal mg/dl Normal [facility] Absolute lymphocyte countOrd ered By: Dr. Marshall on 02-12-2022 Lymphocytes Auto (Unsp spec) [#/Vol] 2.02 10*3/uL 0.83-4.51 [facility] Basophil percentageOrdered B y: Dr. Marshall on 02-12-2022 Basophil percentage 91 mg/dL 74-106 [facility] Basophil percentage 133 mmol/L 136-145 [facility] Basophil percentage 4.7 mmol/L 3.5-5.1 [facility] Basophil percentage 96 mmol/L 98-107 [facility] Basophils (Bld) [#/Vol] 8.0 10*3/uL 4.4-11.0 [facility] Basophils (Bld) [#/Vol] 4.3 10*3/uL 2.0-7.7 [facility] Basophils/100 WBC (Bld) 1.0 % 0-1 [facility] Basophils/100 WBC (Bld) 54.0 % 47-70 [facility] Basophils/100 WBC (Bld) 6.8 % 0-5 [facility] Basophil percentageon 2021 Chloride [Moles/Vol] 96 mmol/L 98-107 [facility] Work Phone: [phone] Eosinophils/100 WBC (Bld) 6.8 % 0-5 [facility] Work Phone: [phone] Glucose [Mass/Vol] 91 mg/dL 74-[address] [facility] Work Phone: [phone] Neutrophils (Bld) [#/Vol] 4.3 10*3/uL 2.0-7.7 [facility] Work Phone: [phone] Neutrophils/100 WBC (Bld) 54.0 % 47-70 [facility] Work Phone: [phone] Potassium [Moles/Vol] 4.7 mmol/L 3.5-5.1 [facility] Work Phone: [phone] Sodium [Moles/Vol] 133 mmol/L 136-[address] [facility] Work Phone: [phone] WBC (Bld) [#/Vol] 8.0 10*3/uL 4.4-11.[address] [facility] Work Phone: [phone] Blood erythrocytes count (nu mber/volume)Ordered By: Dr. Marshall on 02-12-2022 RBC (Bld) [#/Vol] 4.07 10*6/uL 4.2-5.4 [facility] Blood hemoglobin measurement (mass/volume)Ordered By: Dr. Marshall on 02-12-2022 Hemoglobin (Bld) [Mass/Vol] 12.0 g/dL 12.0-15.0 [facility] Blood lymphocytes/100 leukoc ytesOrdered By: Dr. Marshall on 02-12-2022 Lymphocytes/100 WBC (Bld) 25.1 % 19-41 [facility] Blood monocytes/100 leukocyt esOrdered By: Dr. Marshall on 02-12-2022 Monocytes/100 WBC (Bld) 10.2 % 0-10 [facility] Blood platelet mean volumeOr dered By: Dr. Marshall on 02-12-2022 Platelet mean volume (Bld) [Entitic vol] 9.2 fL 6.2-12.0 [facility] Determination of erythrocyte mean corpuscular volume (MCV)Ordered By: Dr. Marshall on 02-12-2022 MCV (RBC) [Entitic vol] 93.9 fL 81-99 [facility] Hematocrit Auto (Bld) [Volum e fraction]Ordered By: Dr. Marshall on 02-12-2022 Hematocrit (Bld) [Volume fraction] 38.2 % 37-47 [facility] Laboratory - Chemistry and C hemistry - challengeon 02-12-2022 CO2 [Moles/Vol] 33.0 mmol/L 21.0-32.0 [facility] Work Phone: Urea nitrogen/Creatinine [Mass ratio] 29.8 mg/mg 10- [facility] Work Phone: Laboratory - Hematology and Cell countson 02-12-2022 Erythrocyte distribution width (RBC) [Entitic vol] 47.6 fL 35.1-43.9 [facility] Work Phone: Erythrocyte distribution width (RBC) [Ratio] 13.7 % 11.6-14.6 [facility] Work Phone: Immature granulocytes/100 WBC (Bld) 2.900 % 0.0-0.9 [facility] Work Phone: Comment on above: IG% - Immature Granu locytes (promyelocytes, myelocytes and metamyelocytes) > 1% indicates that a LEFT SHIFT is Present. MCH (RBC) [Entitic mass] 29.5 pg 27.0-32.0 [facility] Work Phone: Nucleated RBC/100 WBC (Bld) [Ratio] 0 % 0-5 [facility] Work Phone: MCHC Auto (RBC) [Mass/Vol]Or dered By: Dr. Marshall on 02-12-2022 MCHC (RBC) [Mass/Vol] 31.4 g/dL 32-36 [facility] No Panel Informationon 02-12 Estimated Creatinine Clearance Calc 36.95 ml/min [facility] Work Phone: Estimated GFR (MDRD) Amer 83 mL/min >60 [facility] Work Phone: Comment on above: GFR Calc Estimated GFR (MDRD) Non-Af Amer 68 mL/min >60 [facility] Work Phone: Comment on above: Non- GFR Calc No Panel InformationOrdered By: Dr. Marshall on 02-12-2022 29.5 pg 27.0-32.0 [facility] 13.7 % 11.6-14.6 [facility] 47.6 fl 35.1-43.9 [facility] 2.900 % 0.0-0.9 [facility] 0 % 0-5 [facility] 68 mL/min >60 [facility] 83 mL/min >60 [facility] 36.95 ml/min [facility] 29.8 RATIO 10-20 [facility] 33.0 mmol/L 21.0-32.0 [facility] Platelets bldOrdered By: Dr. Marshall on 02-12-2022 Platelets (Bld) [#/Vol] 382 10*3/uL 150-450 [facility] Serum or plasma calcium manuel urement (mass/volume)Ordered By: Dr. Marshall on 02-12-2022 Calcium [Mass/Vol] 9.5 mg/dL 8.5-10.[address] [facility] Serum or plasma creatinine m easurement (mass/volume)Ordered By: Dr. Marshall on 02-12-2022 Creatinine [Mass/Vol] 0.84 mg/dL 0.55-1.02 [facility] Comment on above: The validity of the calculated GFR & GFRAA in patients over 70 years has not been determined. Clinical correlation is essential. Serum or plasma urea nitroge n measurement (mass/volume)Ordered By: Dr. Marshall on 02-12-2022 Urea nitrogen [Mass/Vol] 25 mg/dL 7-18 [facility] Thin prep Papanicolaou smear with manual screeningOrdered By: Dr. Marshall on 02-12-2022 Thin prep Papanicolaou smear with manual screening 4 5-15 [facility] Absolute lymphocyte countOrd ered By: Dr. Evans on 02-11-2022 Lymphocytes Auto (Unsp spec) [#/Vol] 1.85 10*3/uL 0.83-4.51 [facility] Basophil percentageOrdered B y: Dr. Evans on 02-11-2022 Basophil percentage 136 mg/dL 74-106 [facility] Basophil percentage 136 mmol/L 136-145 [facility] Basophil percentage 4.0 mmol/L 3.5-5.1 [facility] Basophil percentage 96 mmol/L 98-107 [facility] Basophils (Bld) [#/Vol] 8.9 10*3/uL 4.4-11.0 [facility] Basophils (Bld) [#/Vol] 5.7 10*3/uL 2.0-7.7 [facility] Basophils/100 WBC (Bld) 0.8 % 0-1 [facility] Basophils/100 WBC (Bld) 64.1 % 47-70 [facility] Basophils/100 WBC (Bld) 5.4 % 0-5 [facility] Basophil percentageon 2021 Chloride [Moles/Vol] 96 mmol/L 98-107 [facility] Work Phone: [phone] Eosinophils/100 WBC (Bld) 5.4 % 0-5 [facility] Work Phone: Glucose [Mass/Vol] 136 mg/dL 74-[address] [facility] Work Phone: [phone] Comment on above: Fasting Glucose resu lt greater than or equal to 126 mg/dL suggests DIABETES MELLITUS per A.D.A. criteria. Neutrophils (Bld) [#/Vol] 5.7 10*3/uL 2.0-7.7 [facility] Work Phone: Neutrophils/100 WBC (Bld) 64.1 % 47-70 [facility] Work Phone: Potassium [Moles/Vol] 4.0 mmol/L 3.5-5.1 [facility] Work Phone: [phone] Sodium [Moles/Vol] 136 mmol/L 136-[address] [facility] Work Phone: WBC (Bld) [#/Vol] 8.9 10*3/uL 4.4-11.[address] [facility] Work Phone: Blood erythrocytes count (nu mber/volume)Ordered By: Dr. Evans on 02-11-2022 RBC (Bld) [#/Vol] 4.48 10*6/uL 4.2-5.4 [facility] Blood hemoglobin measurement (mass/volume)Ordered By: Dr. Evans on 02-11-2022 Hemoglobin (Bld) [Mass/Vol] 13.2 g/dL 12.0-15.0 [facility] Blood lymphocytes/100 leukoc ytesOrdered By: Dr. Evans on 02-11-2022 Lymphocytes/100 WBC (Bld) 20.9 % 19-41 [facility] Blood monocytes/100 leukocyt esOrdered By: Dr. Evans on 02-11-2022 Monocytes/100 WBC (Bld) 6.8 % 0-10 [facility] Blood platelet mean volumeOr dered By: Dr. Evans on 02-11-2022 Platelet mean volume (Bld) [Entitic vol] 9.4 fL 6.2-12.0 [facility] COVID-19 virus antigen assay Ordered By: Dr. Evans on 02-11-2022 SARS-CoV-2 (COVID-19) Ag IA.rapid Ql (Resp) [facility] Determination of erythrocyte mean corpuscular volume (MCV)Ordered By: Dr. Evans on 02-11-2022 MCV (RBC) [Entitic vol] 95.3 fL 81-99 [facility] Hematocrit Auto (Bld) [Volum e fraction]Ordered By: Dr. Evans on 02-11-2022 Hematocrit (Bld) [Volume fraction] 42.7 % 37-47 [facility] INR in Blood by Coagulation assayOrdered By: Dr. Evans on 02-11-2022 INR Coag (Bld) [Relative time] 1.2 {INR} [facility] Laboratory - Chemistry and C hemistry - challengeon 02-11-2022 CO2 [Moles/Vol] 32.0 mmol/L 21.0-32.0 [facility] Work Phone: Magnesium [Mass/Vol] 2.3 mg/dL 1.6-2.6 [facility] Work Phone: Urea nitrogen/Creatinine [Mass ratio] 28.0 mg/mg 10-20 [facility] Work Phone: Laboratory - Coagulationon 1 PT Coag (PPP) [Time] 14.6 s 11.7-14.9 [facility] Work Phone: Laboratory - Hematology and Cell countson 02-11-2022 Erythrocyte distribution width (RBC) [Entitic vol] 48.5 fL 35.1-43.9 [facility] Work Phone: Erythrocyte distribution width (RBC) [Ratio] 13.7 % 11.6-14.6 [facility] Work Phone: Immature granulocytes/100 WBC (Bld) 2.000 % 0.0-0.9 [facility] Work Phone: Comment on above: IG% - Immature Granu locytes (promyelocytes, myelocytes and metamyelocytes) > 1% indicates that a LEFT SHIFT is Present. MCH (RBC) [Entitic mass] 29.5 pg 27.0-32.0 [facility] Work Phone: Nucleated RBC/100 WBC (Bld) [Ratio] 0 % 0-5 [facility] Work Phone: MCHC Auto (RBC) [Mass/Vol]Or dered By: Dr. Evans on 02-11-2022 MCHC (RBC) [Mass/Vol] 30.9 g/dL 32-36 [facility] No Panel Informationon 02-11 Estimated Creatinine Clearance Calc 33.37 ml/min [facility] Work Phone: Estimated GFR (MDRD) Amer 74 mL/min >60 [facility] Work Phone: Comment on above: GFR Calc Estimated GFR (MDRD) Non-Af Amer 61 mL/min >60 [facility] Work Phone: Comment on above: Non- GFR Calc No Panel InformationOrdered By: Dr. Evans on 02-11-2022 29.5 pg 27.0-32.0 [facility] 13.7 % 11.6-14.6 [facility] 48.5 fl 35.1-43.9 [facility] 2.000 % 0.0-0.9 [facility] 0 % 0-5 [facility] 14.6 SECONDS 11.7-14.9 [facility] 61 mL/min >60 [facility] 74 mL/min >60 [facility] 33.37 ml/min [facility] 28.0 RATIO 10-20 [facility] 2.3 mg/dL 1.6-2.6 [facility] 32.0 mmol/L 21.0-32.0 [facility] Platelets bldOrdered By: Dr. Evans on 02-11-2022 Platelets (Bld) [#/Vol] 418 10*3/uL 150-450 [facility] Serum or plasma calcium manuel urement (mass/volume)Ordered By: Dr. Evans on 02-11-2022 Calcium [Mass/Vol] 9.9 mg/dL 8.5-10.[address] [facility] Serum or plasma creatinine m easurement (mass/volume)Ordered By: Dr. Evans on 02-11-2022 Creatinine [Mass/Vol] 0.93 mg/dL 0.55-1.02 [facility] Comment on above: The validity of the calculated GFR & GFRAA in patients over 70 years has not been determined. Clinical correlation is essential. Serum or plasma urea nitroge n measurement (mass/volume)Ordered By: Dr. Evans on 02-11-2022 Urea nitrogen [Mass/Vol] 26 mg/dL 7-18 [facility] Thin prep Papanicolaou smear with manual screeningOrdered By: Dr. Evans on 02-11-2022 Thin prep Papanicolaou smear with manual screening 8 5-15 [facility] Absolute lymphocyte counton 02-09-2022 Lymphocytes Auto (Unsp spec) [#/Vol] 1.65 10*3/uL 0.83-4.51 [facility] Work Phone: Basophil percentageOrdered B y: Dr. Hendrickson on 02-09-2022 Basophil percentage 0 SEEN /hpf 0-5 [facility] Basophil percentage 7.1 g/dL 6.4-8.2 [facility] Basophil percentage 0.30 mg/dL 0.20-1.00 [facility] Basophil percentageon 2021 Basophils/100 WBC (Bld) 0.6 % 0-1 [facility] Work Phone: Bilirubin [Mass/Vol] 0.30 mg/dL 0.20-1.00 [facility] Work Phone: Comment on above: For patients on eltr ombopag therapy, use of Dimension [place] TBIL is not recommended. Chloride [Moles/Vol] 97 mmol/L 98-107 [facility] Work Phone: Eosinophils/100 WBC (Bld) 3.1 % 0-5 [facility] Work Phone: Glucose [Mass/Vol] 111 mg/dL 74-[address] [facility] Work Phone: Comment on above: Fasting Glucose resu lt from 100 to 125 mg/dL suggests IMPAIRED HOMEOSTASIS per A.D.A. criteria. Neutrophils (Bld) [#/Vol] 5.8 10*3/uL 2.0-7.7 [facility] Work Phone: Neutrophils/100 WBC (Bld) 63.6 % 47-70 [facility] Work Phone: Potassium [Moles/Vol] 4.8 mmol/L 3.5-5.1 [facility] Work Phone: Protein [Mass/Vol] 7.1 g/dL 6.4-8.[address] [facility] Work Phone: [phone] Sodium [Moles/Vol] 136 mmol/L 136-[address] [facility] Work Phone: WBC (Bld) [#/Vol] 9.1 10*3/uL 4.4-11.[address] [facility] Work Phone: Bilirubin Test strip Ql (U)O rdered By: Dr. Hendrickson on 02-09-2022 Bilirubin Ql (U) Negative Negative [facility] Blood erythrocytes count (nu mber/volume)on 02-09-2022 RBC (Bld) [#/Vol] 4.14 10*6/uL 4.2-5.4 [facility] Work Phone: Blood hemoglobin measurement (mass/volume)on 02-09-2022 Hemoglobin (Bld) [Mass/Vol] 12.3 g/dL 12.0-15.0 [facility] Work Phone: Blood lymphocytes/100 leukoc yteson 02-09-2022 Lymphocytes/100 WBC (Bld) 18.2 % 19-41 [facility] Work Phone: Blood monocytes/100 leukocyt eson 02-09-2022 Monocytes/100 WBC (Bld) 12.6 % 0-10 [facility] Work Phone: Blood platelet mean volumeon 02-09-2022 Platelet mean volume (Bld) [Entitic vol] 9.2 fL 6.2-12.0 [facility] Work Phone: Determination of erythrocyte mean corpuscular volume (MCV)on 02-09-2022 MCV (RBC) [Entitic vol] 95.7 fL 81-99 [facility] Work Phone: Hematocrit Auto (Bld) [Volum e fraction]on 02-09-2022 Hematocrit (Bld) [Volume fraction] 39.6 % 37-47 [facility] Work Phone: Ketones Test strip Ql (U)Ord ered By: Dr. Hendrickson on 02-09-2022 Ketones Ql (U) Negative Negative [facility] Laboratory - Chemistry and C hemistry - challengeon 02-09-2022 ALP [Catalytic activity/Vol] 62 U/L 45-117 [facility] Work Phone: ALT [Catalytic activity/Vol] 18 U/L 13-56 [facility] Work Phone: CO2 [Moles/Vol] 33.0 mmol/L 21.0-32.0 [facility] Work Phone: Globulin (S) [Mass/Vol] 4.0 g/dL 2.2-4.2 [facility] Work Phone: Urea nitrogen/Creatinine [Mass ratio] 28.6 mg/mg 10-20 [facility] Work Phone: Laboratory - Hematology and Cell countson 02-09-2022 Erythrocyte distribution width (RBC) [Entitic vol] 49.4 fL 35.1-43.9 [facility] Work Phone: Erythrocyte distribution width (RBC) [Ratio] 14.1 % 11.6-14.6 [facility] Work Phone: Immature granulocytes/100 WBC (Bld) 1.900 % 0.0-0.9 [facility] Work Phone: Comment on above: IG% - Immature Granu locytes (promyelocytes, myelocytes and metamyelocytes) > 1% indicates that a LEFT SHIFT is Present. MCH (RBC) [Entitic mass] 29.7 pg 27.0-32.0 [facility] Work Phone: Nucleated RBC/100 WBC (Bld) [Ratio] 0 % 0-5 [facility] Work Phone: MCHC Auto (RBC) [Mass/Vol]on 02-09-2022 MCHC (RBC) [Mass/Vol] 31.1 g/dL 32-36 [facility] Work Phone: Mucus LM Ql (Urine sed)Order ed By: Dr. Hendrickson on 02-09-2022 Mucus Ql (Urine sed) 0 SEEN /hpf [facility] Nitrite Test strip Ql (U)Ord ered By: Dr. Hendrickson on 02-09-2022 Nitrite Ql (U) Negative Negative [facility] No Panel Informationon 02-09 Estimated Creatinine Clearance Calc 29.56 ml/min [facility] Work Phone: Estimated GFR (MDRD) Amer 64 mL/min >60 [facility] Work Phone: Comment on above: GFR Calc Estimated GFR (MDRD) Non-Af Amer 53 mL/min >60 [facility] Work Phone: Comment on above: Non- GFR Calc No Panel InformationOrdered By: Dr. Hendrickson on 02-09-2022 4.0 g/dL 2.2-4.2 [facility] 62 U/L 45-117 [facility] 18 U/L 13-56 [facility] Platelets bldon 02-09-2022 Platelets (Bld) [#/Vol] 385 10*3/uL 150-450 [facility] Work Phone: Protein Test strip Ql (U)Ord ered By: Dr. Hendrickson on 02-09-2022 Protein Ql (U) Negative Negative [facility] Serum or plasma albumin manuel urement (mass/volume)Ordered By: Dr. Hendrickson on 02-09-2022 Albumin [Mass/Vol] 3.1 g/dL 3.2-5.[address] [facility] Serum or plasma albumin/glob ulin mass ratioOrdered By: Dr. Hendrickson on 02-09-2022 Albumin/Globulin [Mass ratio] 0.8 {ratio} 0.9-2.4 [facility] Serum or plasma calcium manuel urement (mass/volume)on 02-09-2022 Calcium [Mass/Vol] 9.1 mg/dL 8.5-10.[address] [facility] Work Phone: Serum or plasma creatinine m easurement (mass/volume)on 02-09-2022 Creatinine [Mass/Vol] 1.05 mg/dL 0.55-1.02 [facility] Work Phone: Comment on above: The validity of the calculated GFR & GFRAA in patients over 70 years has not been determined. Clinical correlation is essential. Serum or plasma urea nitroge n measurement (mass/volume)on 02-09-2022 Urea nitrogen [Mass/Vol] 30 mg/dL 7-18 [facility] Work Phone: Squamous epithelial cells de tection in urine sediment by light microscopyOrdered By: Dr. Hendrickson on 02-09-2022 Epithelial cells.squamous LM Ql (Urine sed) 0-5 SEEN /hpf 5-10 [facility] Thin prep Papanicolaou smear with manual screeningOrdered By: Dr. Hendrickson on 02-09-2022 Thin prep Papanicolaou smear with manual screening 16 U/L 15-37 [facility] Thin prep Papanicolaou smear with manual screeningon 02-09-2022 Thin prep Papanicolaou smear with manual screening 6 5-15 [facility] Work Phone: Urine blood detectionOrdered By: Dr. Hendrickson on 02-09-2022 RBC Ql (U) Negative Negative [facility] RBC Ql (U) 0 SEEN /hpf 0-5 [facility] Urine clarityOrdered By: Dr. Hendrickson on 02-09-2022 Clarity (U) Clear Clear [facility] Urine color determinationOrd ered By: Dr. Hendrickson on 02-09-2022 Color (U) Straw Yellow [facility] Urine glucose detectionOrder ed By: Dr. Hendrickson on 02-09-2022 Glucose Ql (U) Normal mg/dl Normal [facility] Urine leukocyte esterase det ection by dipstickOrdered By: Dr. Hendrickson on 02-09-2022 Leukocyte esterase Test strip Ql (U) Negative Negative [facility] Urine pHOrdered By: Dr. Heavenly freeman on 02-09-2022 pH (U) 7.0 [pH] 5.0 - 8.0 [facility] Urine sediment bacteria coun t by microscopy (number/high power field)Ordered By: Dr. Hendrickson on 02-09-2022 Bacteria LM.HPF (Urine sed) [#/Area] RARE /hpf None Seen [facility] Urine specific gravity measu rementOrdered By: Dr. Hendrickson on 02-09-2022 Specific gravity (U) [Rel density] 1.005 1.002-1.030 [facility] Urobilinogen Auto test strip Ql (U)Ordered By: Dr. Hendrickson on 02-09-2022 Urobilinogen Ql (U) Normal mg/dl Normal [facility] Serum or plasma cortisol fran surement (mass/volume)on 12-20-2021 Cortisol [Mass/Vol] 6.90 ug/dL 3.44-22.45 [facility] Work Phone: Comment on above: Adult (AM) 5.27 - 22 .45 ug/dL Adult (PM) 3.44 - 16.76 ug/dLPlease note revised CORTISOL reference range effective 2019. Absolute lymphocyte counton 12-18-2021 Lymphocytes Auto (Unsp spec) [#/Vol] 2.24 10*3/uL 0.83-4.51 [facility] Work Phone: Basophil percentageon 2021 Basophils/100 WBC (Bld) 0.7 % 0-1 [facility] Work Phone: Bilirubin [Mass/Vol] 0.40 mg/dL 0.20-1.00 [facility] Work Phone: Comment on above: For patients on eltr ombopag therapy, use of Dimension [place] TBIL is not recommended. Chloride [Moles/Vol] 102 mmol/L 98-107 [facility] Work Phone: Eosinophils/100 WBC (Bld) 1.7 % 0-5 [facility] Work Phone: Glucose [Mass/Vol] 104 mg/dL 74-[address] [facility] Work Phone: Comment on above: Fasting Glucose resu lt from 100 to 125 mg/dL suggests IMPAIRED HOMEOSTASIS per A.D.A. criteria. Neutrophils (Bld) [#/Vol] 6.7 10*3/uL 2.0-7.7 [facility] Work Phone: Neutrophils/100 WBC (Bld) 66.9 % 47-70 [facility] Work Phone: Potassium [Moles/Vol] 4.4 mmol/L 3.5-5.1 [facility] Work Phone: Protein [Mass/Vol] 7.6 g/dL [facility]4-[facility].2 [facility] Work Phone: Sodium [Moles/Vol] 137 mmol/L 136-145 [facility] Work Phone: WBC (Bld) [#/Vol] 10.1 10*3/uL 4.4-11.0 [facility] Work [facility]: Blood erythrocytes count (nu mber/volume)on 12-18-2021 RBC (Bld) [#/Vol] 4.04 10*6/uL 4.2-5.4 [facility] Work Phone: Blood hemoglobin measurement (mass/volume)on 12-18-2021 Hemoglobin (Bld) [Mass/Vol] 12.1 g/dL 12.0-15.0 [facility] Work Phone: Blood lymphocytes/100 leukoc yteson 12-18-2021 Lymphocytes/100 WBC (Bld) 22.3 % 19-41 [facility] Work Phone: Blood monocytes/100 leukocyt eson 12-18-2021 Monocytes/100 WBC (Bld) 8.0 % 0-10 [facility] Work Phone: Blood platelet mean volumeon 12-18-2021 Platelet mean volume (Bld) [Entitic vol] 9.7 fL 6.2-12.0 [facility] Work Phone: Determination of erythrocyte mean corpuscular volume (MCV)on 12-18-2021 MCV (RBC) [Entitic vol] 91.3 fL 81-99 [facility] Work Phone: Erythrocyte sedimentation ra pieter 12-18-2021 ESR (Bld) [Velocity] 38 mm/h 0-30 [facility] Work Phone: Hematocrit Auto (Bld) [Volum e fraction]on 12-18-2021 Hematocrit (Bld) [Volume fraction] 36.9 % 37-47 [facility] Work Phone: Iron measurement (mass/mass) on 12-18-2021 Iron (Unsp spec) [Mass/Mass] 97 ug/dL 50-170 [facility] Work Phone: [phone] Laboratory - Chemistry and C hemistry - challengeon 12-18-2021 ALP [Catalytic activity/Vol] 56 U/L 45-117 [facility] Work Phone: ALT [Catalytic activity/Vol] 17 U/L 13-56 [facility] Work Phone: [phone] CO2 [Moles/Vol] 30.0 mmol/L 21.0-32.0 [facility] Work Phone: [phone] Cobalamin (Vitamin B12) [Mass/Vol] 374 pg/mL 211-911 [facility] Work Phone: [phone] Globulin (S) [Mass/Vol] 4.2 g/dL 2.2-4.2 [facility] Work Phone: [phone] Urea nitrogen/Creatinine [Mass ratio] 25.0 mg/mg 10-20 [facility] Work Phone: Laboratory - Hematology and Cell countson 12-18-2021 Erythrocyte distribution width (RBC) [Entitic vol] 46.5 fL 35.1-43.9 [facility] Work Phone: [phone] Erythrocyte distribution width (RBC) [Ratio] 13.6 % 11.6-14.6 [facility] Work Phone: Immature granulocytes/100 WBC (Bld) 0.400 % 0.0-0.9 [facility] Work Phone: [phone] Comment on above: IG% - Immature Granu locytes (promyelocytes, myelocytes and metamyelocytes) > 1% indicates that a LEFT SHIFT is Present. MCH (RBC) [Entitic mass] 30.0 pg 27.0-32.0 [facility] Work Phone: [phone] Nucleated RBC/100 WBC (Bld) [Ratio] 0 % 0-5 [facility] Work Phone: MCHC Auto (RBC) [Mass/Vol]on 12-18-2021 MCHC (RBC) [Mass/Vol] 32.8 g/dL 32-36 [facility] Work Phone: No Panel Informationon 12-18 Estimated GFR (MDRD) Amer 57 mL/min >60 [facility] Work Phone: Comment on above: GFR Calc Estimated GFR (MDRD) Non-Af Amer 47 mL/min >60 [facility] Work Phone: Comment on above: Non- GFR Calc Thyroid Stimulating Hormone (TSH) 0.98 uIU/mL 0.358-3.74 [facility] Work Phone: Vitamin D 25-Hydroxy 76.0 ng/mL [facility] Work Phone: Comment on above: Vitamin D 25(OH) Sta tus Range Deficiency <20 ng/mL (50nmol/L) Insufficiency 20 - 30 ng/mL (50 - 75 nmol/L) Sufficiency 30 - 100 ng/mL (75 - 250 nmol/L) Toxicity >100 ng/mL (>250 nmol/L) Platelets bldon 12-18-2021 Platelets (Bld) [#/Vol] 333 10*3/uL 150-450 [facility] Work Phone: Serum or plasma albumin manuel urement (mass/volume)on 12-18-2021 Albumin [Mass/Vol] 3.4 g/dL 3.2-5.[address] [facility] Work Phone: Serum or plasma albumin/glob ulin mass ratioon 12-18-2021 Albumin/Globulin [Mass ratio] 0.8 {ratio} 0.9-2.4 [facility] Work Phone: Serum or plasma calcium manuel urement (mass/volume)on 12-18-2021 Calcium [Mass/Vol] 9.5 mg/dL 8.5-10.[address] [facility] [facility] [facility] Work Phone: Serum or plasma cortisol fran surement (mass/volume)on 12-18-2021 Cortisol [Mass/Vol] 2.80 ug/dL 3.44-22.45 [facility] Work Phone: Comment on above: Adult (AM) 5.27 - 22 .45 ug/dL Adult (PM) 3.44 - 16.76 ug/dLPlease note revised CORTISOL reference range effective 2019. Serum or plasma creatinine m easurement (mass/volume)on 12-18-2021 Creatinine [Mass/Vol] 1.16 mg/dL 0.55-1.02 [facility] Work Phone: Comment on above: The validity of the calculated GFR & GFRAA in patients over 70 years has not been determined. Clinical correlation is essential. Serum or plasma ferritin fran surement (mass/volume)on 12-18-2021 Ferritin [Mass/Vol] 56 ng/mL [facility] Work Phone: Serum or plasma urea nitroge n measurement (mass/volume)on 12-18-2021 Urea nitrogen [Mass/Vol] 29 mg/dL 7-18 [facility] Work Phone: Thin prep Papanicolaou smear with manual screeningon 12-18-2021 Thin prep Papanicolaou smear with manual screening 19 U/L 15-37 [facility] Work Phone: Thin prep Papanicolaou smear with manual screening 5 5-15 [facility] Work Phone: Serum or plasma ferritin fran surement (mass/volume)on 09-27-2021 Ferritin [Mass/Vol] 39 ng/mL [facility] Work Phone: Absolute lymphocyte counton 07-27-2021 Lymphocytes Auto (Unsp spec) [#/Vol] 1.59 10*3/uL 0.83-4.51 [facility] Work Phone: Basophil percentageon 2021 Basophils/100 WBC (Bld) 0.6 % 0-1 [facility] Work Phone: Eosinophils/100 WBC (Bld) 3.6 % 0-5 [facility] Work Phone: Neutrophils (Bld) [#/Vol] 3.9 10*3/uL 2.0-7.7 [facility] Work Phone: Neutrophils/100 WBC (Bld) 60.7 % 47-70 [facility] Work Phone: [phone] WBC (Bld) [#/Vol] 6.4 10*3/uL 4.4-11.[address] [facility] Work Phone: Blood erythrocytes count (nu mber/volume)on 07-27-2021 RBC (Bld) [#/Vol] 3.84 10*6/uL 4.2-5.4 [facility] Work Phone: Blood hemoglobin measurement (mass/volume)on 07-27-2021 Hemoglobin (Bld) [Mass/Vol] 11.7 g/dL 12.0-15.0 [facility] Work Phone: Blood lymphocytes/100 leukoc yteson 07-27-2021 Lymphocytes/100 WBC (Bld) 24.8 % 19-41 [facility] Work Phone: Blood monocytes/100 leukocyt eson 07-27-2021 Monocytes/100 WBC (Bld) 9.7 % 0-10 [facility] Work Phone: Blood platelet mean volumeon 07-27-2021 Platelet mean volume (Bld) [Entitic vol] 10.4 fL 6.2-12.0 [facility] Work Phone: Determination of erythrocyte mean corpuscular volume (MCV)on 07-27-2021 MCV (RBC) [Entitic vol] 92.7 fL 81-99 [facility] Work Phone: Hematocrit Auto (Bld) [Volum e fraction]on 07-27-2021 Hematocrit (Bld) [Volume fraction] 35.6 % 37-47 [facility] Work Phone: Laboratory - Hematology and Cell countson 07-27-2021 Erythrocyte distribution width (RBC) [Entitic vol] 46.9 fL 35.1-43.9 [facility] Work Phone: Erythrocyte distribution width (RBC) [Ratio] 13.8 % 11.6-14.6 [facility] Work Phone: Immature granulocytes/100 WBC (Bld) 0.600 % 0.0-0.9 [facility] Work Phone: Comment on above: IG% - Immature Granu locytes (promyelocytes, myelocytes and metamyelocytes) > 1% indicates that a LEFT SHIFT is Present. MCH (RBC) [Entitic mass] 30.5 pg 27.0-32.0 [facility] Work Phone: Nucleated RBC/100 WBC (Bld) [Ratio] 0 % 0-5 [facility] Work Phone: MCHC Auto (RBC) [Mass/Vol]on 07-27-2021 MCHC (RBC) [Mass/Vol] 32.9 g/dL 32-36 [facility] Work Phone: Comment on above: Delta: 30.9 on 07/2505 No Panel Informationon 07-27 Ionized Calcium 4.8 mg/dL 4.5-5.6 [facility] Work Phone: Comment on above: Performed at: [address] [id number] Director: Arjun Pisano PhD, Phone: [phone] Parathyroid Hormone (Intact) 109.8 pg/mL 18.4-80.1 [facility] Work Phone: Vitamin D 25-Hydroxy 69.9 ng/mL [facility] Work Phone: Comment on above: Vitamin D 25(OH) Sta tus Range Deficiency <20 ng/mL (50nmol/L) Insufficiency 20 - 30 ng/mL (50 - 75 nmol/L) Sufficiency 30 - 100 ng/mL (75 - 250 nmol/L) Toxicity >100 ng/mL (>250 nmol/L) Platelets bldon 07-27-2021 Platelets (Bld) [#/Vol] 280 10*3/uL 150-450 [facility] Work Phone: Serum or plasma C reactive p rotein measurement (mass/volume)on 07-27-2021 CRP [Mass/Vol] 36.30 mg/L 0.0-3.0 [facility] Work Phone: Comment on above: C-Reactive Protein ( CRP) provides useful information for thediagnosis, therapy and monitoring of inflammatory processesand associated diseases. For the evaluation of Relative Riskfor Cardiovascular Disease, a High Sensitivity CRP (HSCRP)should be ordered. Absolute lymphocyte counton 07-25-2021 Lymphocytes Auto (Unsp spec) [#/Vol] 1.76 10*3/uL 0.83-4.51 [facility] Work Phone: Basophil percentageon 2021 Basophils/100 WBC (Bld) 0.5 % 0-1 [facility] Work Phone: Chloride [Moles/Vol] 106 mmol/L 98-107 [facility] Work Phone: Eosinophils/100 WBC (Bld) 2.9 % 0-5 [facility] Work Phone: [phone] Glucose [Mass/Vol] 92 mg/dL 74-[address] [facility] Work Phone: Neutrophils (Bld) [#/Vol] 3.3 10*3/uL 2.0-7.7 [facility] Work Phone: Neutrophils/100 WBC (Bld) 56.0 % 47-70 [facility] Work Phone: Potassium [Moles/Vol] 3.9 mmol/L 3.5-5.1 [facility] Work Phone: Sodium [Moles/Vol] 139 mmol/L 136-[address] [facility] Work Phone: WBC (Bld) [#/Vol] 5.9 10*3/uL 4.4-11.[address] [facility] Work Phone: Blood erythrocytes count (nu mber/volume)on 07-25-2021 RBC (Bld) [#/Vol] 3.30 10*6/uL 4.2-5.4 [facility] Work Phone: Blood hemoglobin measurement (mass/volume)on 07-25-2021 Hemoglobin (Bld) [Mass/Vol] 9.5 g/dL 12.0-15.0 [facility] Work Phone: Blood lymphocytes/100 leukoc yteson 07-25-2021 Lymphocytes/100 WBC (Bld) 29.9 % 19-41 [facility] Work Phone: Blood monocytes/100 leukocyt eson 07-25-2021 Monocytes/100 WBC (Bld) 10.5 % 0-10 [facility] Work Phone: Blood platelet mean volumeon 07-25-2021 Platelet mean volume (Bld) [Entitic vol] 9.7 fL 6.2-12.0 [facility] Work Phone: Determination of erythrocyte mean corpuscular volume (MCV)on 07-25-2021 MCV (RBC) [Entitic vol] 93.0 fL 81-99 [facility] Work Phone: Erythrocyte sedimentation ra pieter 07-25-2021 ESR (Bld) [Velocity] 12 mm/h 0-30 [facility] Work Phone: Hematocrit Auto (Bld) [Volum e fraction]on 07-25-2021 Hematocrit (Bld) [Volume fraction] 30.7 % 37-47 [facility] Work Phone: INR in Blood by Coagulation assayon 07-25-2021 INR Coag (Bld) [Relative time] 4.1 {INR} [facility] Work Phone: Comment on above: CRITICAL VALUE VERIF IED. CALLED TO David HERNANDEZ RN [phone].RESULTS READ BACK BY SAME. Laboratory - Chemistry and C hemistry - challengeon 07-25-2021 CO2 [Moles/Vol] 27.0 mmol/L 21.0-32.0 [facility] Work Phone: Urea nitrogen/Creatinine [Mass ratio] 23.7 mg/mg 10-20 [facility] Work Phone: Laboratory - Coagulationon 0 07-25-2021 PT Coag (PPP) [Time] 39.3 s 11.7-14.9 [facility] Work Phone: Laboratory - Hematology and Cell countson 07-25-2021 Erythrocyte distribution width (RBC) [Entitic vol] 47.7 fL 35.1-43.9 [facility] Work Phone: Erythrocyte distribution width (RBC) [Ratio] 14.1 % 11.6-14.6 [facility] Work Phone: Immature granulocytes/100 WBC (Bld) 0.200 % 0.0-0.9 [facility] Work Phone: Comment on above: IG% - Immature Granu locytes (promyelocytes, myelocytes and metamyelocytes) > 1% indicates that a LEFT SHIFT is Present. MCH (RBC) [Entitic mass] 28.8 pg 27.0-32.0 [facility] Work Phone: Nucleated RBC/100 WBC (Bld) [Ratio] 0 % 0-5 [facility] Work Phone: MCHC Auto (RBC) [Mass/Vol]on 07-25-2021 MCHC (RBC) [Mass/Vol] 30.9 g/dL 32-36 [facility] Work Phone: No Panel Informationon 07-25 Estimated Creatinine Clearance Calc 32.00 ml/min [facility] Work Phone: Estimated GFR (MDRD) Amer 70 mL/min >60 [facility] Work Phone: Comment on above: GFR Calc Estimated GFR (MDRD) Non-Af Amer 58 mL/min >60 [facility] Work Phone: Comment on above: Non- GFR Calc Platelets bldon 07-25-2021 Platelets (Bld) [#/Vol] 213 10*3/uL 150-450 [facility] Work Phone: Serum or plasma C reactive p rotein measurement (mass/volume)on 07-25-2021 CRP [Mass/Vol] 67.00 mg/L 0.0-3.0 [facility] Work Phone: Comment on above: C-Reactive Protein ( CRP) provides useful information for thediagnosis, therapy and monitoring of inflammatory processesand associated diseases. For the evaluation of Relative Riskfor Cardiovascular Disease, a High Sensitivity CRP (HSCRP)should be ordered. Serum or plasma calcium manuel urement (mass/volume)on 07-25-2021 Calcium [Mass/Vol] 7.6 mg/dL 8.5-10.[address] [facility] Work Phone: Serum or plasma creatinine m easurement (mass/volume)on 07-25-2021 Creatinine [Mass/Vol] 0.97 mg/dL 0.55-1.02 [facility] Work Phone: Comment on above: The validity of the calculated GFR & GFRAA in patients over 70 years has not been determined. Clinical correlation is essential. Serum or plasma urea nitroge n measurement (mass/volume)on 07-25-2021 Urea nitrogen [Mass/Vol] 23 mg/dL 7-18 [facility] Work Phone: Thin prep Papanicolaou smear with manual screeningon 07-25-2021 Thin prep Papanicolaou smear with manual screening 6 5-15 [facility] Work Phone: Activated partial thrombopla stin time (aPTT) in platelet poor plasma by coagulation aon 07-24-2021 aPTT Coag (PPP) [Time] 53.1 s 24.1-36.2 [facility] Work Phone: Basophil percentageon 2021 Bilirubin [Mass/Vol] 0.40 mg/dL 0.20-1.00 [facility] Work Phone: Comment on above: For patients on eltr ombopag therapy, use of Dimension [place] TBIL is not recommended. Lactate [Moles/Vol] 0.7 mmol/L 0.4-2.0 [facility] Work Phone: Protein [Mass/Vol] 7.4 g/dL 6.4-8.[address] [facility] Work Phone: Direct bilirubinon 2 Bilirubin.direct [Mass/Vol] 0.05 mg/dL 0.00-0.30 [facility] Work Phone: Hemoglobin.gastrointestinal Ql ([place] fld)on 07-24-2021 Gastric Occult Blood Positive [facility] Work Phone: Laboratory - Chemistry and C hemistry - challengeon 07-24-2021 ALP [Catalytic activity/Vol] 59 U/L 45-117 [facility] Work Phone: ALT [Catalytic activity/Vol] 21 U/L 13-56 [facility] Work Phone: Globulin (S) [Mass/Vol] 4.0 g/dL 2.2-4.2 [facility] Work Phone: Lipase [Catalytic activity/Vol] 105 U/L 73-393 [facility] Work Phone: Serum or plasma albumin manuel urement (mass/volume)on 07-24-2021 Albumin [Mass/Vol] 3.4 g/dL 3.2-5.[address] [facility] Work Phone: Thin prep Papanicolaou smear with manual screeningon 07-24-2021 Thin prep Papanicolaou smear with manual screening 31 U/L 15-37 [facility] Work Phone: Absolute lymphocyte counton 06-19-2021 Lymphocytes Auto (Unsp spec) [#/Vol] 1.69 10*3/uL 0.83-4.51 [facility] Work Phone: Basophil percentageon 2021 Basophils/100 WBC (Bld) 1.1 % 0-1 [facility] Work Phone: [phone] Bilirubin [Mass/Vol] 0.40 mg/dL 0.20-1.00 [facility] Work Phone: Comment on above: For patients on eltr ombopag therapy, use of Dimension [place] TBIL is not recommended. Chloride [Moles/Vol] 99 mmol/L 98-107 [facility] Work Phone: Eosinophils/100 WBC (Bld) 2.2 % 0-5 [facility] Work Phone: [phone] Glucose [Mass/Vol] 93 mg/dL 74-[address] [facility] Work Phone: Neutrophils (Bld) [#/Vol] 3.1 10*3/uL 2.0-7.7 [facility] Work Phone: Neutrophils/100 WBC (Bld) 55.2 % 47-70 [facility] Work Phone: [phone] Potassium [Moles/Vol] 4.0 mmol/L 3.5-5.1 [facility] Work Phone: [phone] Protein [Mass/Vol] 8.1 g/dL 6.4-8.[address] [facility] Work Phone: Sodium [Moles/Vol] 137 mmol/L 136-[address] [facility] Work Phone: WBC (Bld) [#/Vol] 5.5 10*3/uL 4.4-11.[address] [facility] Work Phone: Blood erythrocytes count (nu mber/volume)on 06-19-2021 RBC (Bld) [#/Vol] 4.15 10*6/uL 4.2-5.4 [facility] Work Phone: Blood hemoglobin measurement (mass/volume)on 06-19-2021 Hemoglobin (Bld) [Mass/Vol] 11.8 g/dL 12.0-15.0 [facility] Work Phone: Blood lymphocytes/100 leukoc yteson 06-19-2021 Lymphocytes/100 WBC (Bld) 30.6 % 19-41 [facility] Work Phone: Blood monocytes/100 leukocyt eson 06-19-2021 Monocytes/100 WBC (Bld) 10.5 % 0-10 [facility] Work Phone: Blood platelet mean volumeon 06-19-2021 Platelet mean volume (Bld) [Entitic vol] 10.0 fL 6.2-12.0 [facility] Work Phone: Determination of erythrocyte mean corpuscular volume (MCV)on 06-19-2021 MCV (RBC) [Entitic vol] 91.3 fL 81-99 [facility] Work Phone: Erythrocyte sedimentation ra pieter 06-19-2021 ESR (Bld) [Velocity] 47 mm/h 0-30 [facility] Work Phone: Hematocrit Auto (Bld) [Volum e fraction]on 06-19-2021 Hematocrit (Bld) [Volume fraction] 37.9 % 37-47 [facility] Work Phone: Laboratory - Chemistry and C hemistry - challengeon 06-19-2021 ALP [Catalytic activity/Vol] 59 U/L 45-117 [facility] Work Phone: ALT [Catalytic activity/Vol] 23 U/L 13-56 [facility] Work Phone: CO2 [Moles/Vol] 29.0 mmol/L 21.0-32.0 [facility] Work Phone: Globulin (S) [Mass/Vol] 4.5 g/dL 2.2-4.2 [facility] Work Phone: Urea nitrogen/Creatinine [Mass ratio] 29.7 mg/mg 10-20 [facility] Work Phone: Laboratory - Hematology and Cell countson 06-19-2021 Erythrocyte distribution width (RBC) [Entitic vol] 45.2 fL 35.1-43.9 [facility] Work Phone: Erythrocyte distribution width (RBC) [Ratio] 13.4 % 11.6-14.6 [facility] Work Phone: Immature granulocytes/100 WBC (Bld) 0.400 % 0.0-0.9 [facility] Work Phone: Comment on above: IG% - Immature Granu locytes (promyelocytes, myelocytes and metamyelocytes) > 1% indicates that a LEFT SHIFT is Present. MCH (RBC) [Entitic mass] 28.4 pg 27.0-32.0 [facility] Work Phone: Nucleated RBC/100 WBC (Bld) [Ratio] 0 % 0-5 [facility] Work Phone: MCHC Auto (RBC) [Mass/Vol]on 06-19-2021 MCHC (RBC) [Mass/Vol] 31.1 g/dL 32-36 [facility] Work Phone: No Panel Informationon 06-19 Anti-Nuclear Antibody Screen Negative Negative [facility] Work Phone: Comment on above: Performed at: - [address] [id number] Director: Arjun Pisano PhD, Phone: [phone] Estimated GFR (MDRD) Amer 72 mL/min >60 [facility] Work Phone: Comment on above: GFR Calc Estimated GFR (MDRD) Non-Af Amer 60 mL/min >60 [facility] Work Phone: Comment on above: Non- GFR Calc Thyroid Stimulating Hormone (TSH) 0.96 uIU/mL 0.358-3.74 [facility] Work Phone: Platelets bldon 06-19-2021 Platelets (Bld) [#/Vol] 328 10*3/uL 150-450 [facility] Work Phone: Serum or plasma albumin manuel urement (mass/volume)on 06-19-2021 Albumin [Mass/Vol] 3.6 g/dL 3.2-5.[address] [facility] Work Phone: Serum or plasma albumin/glob ulin mass ratioon 06-19-2021 Albumin/Globulin [Mass ratio] 0.8 {ratio} 0.9-2.4 [facility] Work Phone: Serum or plasma calcium manuel urement (mass/volume)on 06-19-2021 Calcium [Mass/Vol] 9.0 mg/dL 8.5-10.[address] [facility] Work Phone: Serum or plasma creatinine m easurement (mass/volume)on 06-19-2021 Creatinine [Mass/Vol] 0.94 mg/dL 0.55-1.02 [facility] Work Phone: Comment on above: The validity of the calculated GFR & GFRAA in patients over 70 years has not been determined. Clinical correlation is essential. Serum or plasma urea nitroge n measurement (mass/volume)on 06-19-2021 Urea nitrogen [Mass/Vol] 28 mg/dL 7-18 [facility] Work Phone: Serum rheumatoid factor dete ctionon 06-19-2021 Rheumatoid factor Ql (S) < 10.0 IU/mL <15 [facility] Work Phone: Thin prep Papanicolaou smear with manual screeningon 06-19-2021 Thin prep Papanicolaou smear with manual screening 21 U/L 15-37 [facility] Work Phone: Thin prep Papanicolaou smear with manual screening 9 5-15 [facility] Work Phone: Laboratory - Microbiology an d Antimicrobial susceptibilityon 05-09-2021 SARS-CoV-2 (COVID-19) RNA RHYS+probe Ql (Unsp spec) Not detected Not Detect [facility] Work Phone: Comment on above: Normal Reference Ran ge: Not DetectedMethod:(RT-PCR) real-time reverse transcriptase PCRLuminex JAQUELINE Instrument*The Food and Drug Administration (FDA) has issued an Emergency Use Authorization (EAU) for the JAQUELINE SARS-CoV-2 Assay for the rapid detection of the virus that causes COVID-19. This test has been validated, but the FDAs independent review of this validation is pending.*Negative results do not preclude infection and should not be used as the sole basis for treatment or patient management. Optimum specimen types and timing for peak viral levels during infections caused by SARS-CoV-2 have not been determined. Collection of multiple specimens from the same patient may be necessary to detect the virus. The possibility of a false negative result should be considered if the patient has clinical presentation or has had recent exposure. Basophil percentageon 2020 Chloride [Moles/Vol] 104 mmol/L 98-107 [facility] Work Phone: Glucose [Mass/Vol] 97 mg/dL 74-[address] [facility] Work Phone: Comment on above: Please note revised GLUCOSE reference range effective 2017. Potassium [Moles/Vol] 4.1 mmol/L 3.5-5.1 [facility] Work Phone: Sodium [Moles/Vol] 137 mmol/L 136-[address] [facility] Work Phone: Laboratory - Chemistry and C hemistry - challengeon 05-07-2021 CO2 [Moles/Vol] 27.0 mmol/L 21.0-32.0 [facility] Work Phone: Urea nitrogen/Creatinine [Mass ratio] 29.9 mg/mg 10-20 [facility] Work Phone: No Panel Informationon 05-07 Estimated GFR (MDRD) Amer 73 mL/min >60 [facility] Work Phone: Comment on above: GFR Calc Estimated GFR (MDRD) Non-Af Amer 60 mL/min >60 [facility] Work Phone: Comment on above: Non- GFR Calc Serum or plasma calcium manuel urement (mass/volume)on 05-07-2021 Calcium [Mass/Vol] 9.3 mg/dL 8.5-10.[address] [facility] Work Phone: Serum or plasma creatinine m easurement (mass/volume)on 05-07-2021 Creatinine [Mass/Vol] 0.94 mg/dL 0.55-1.02 [facility] Work Phone: Comment on above: The validity of the calculated GFR & GFRAA in patients over 70 years has not been determined. Clinical correlation is essential. Serum or plasma urea nitroge n measurement (mass/volume)on 05-07-2021 Urea nitrogen [Mass/Vol] 28 mg/dL 7-18 [facility] Work Phone: Thin prep Papanicolaou smear with manual screeningon 05-07-2021 Thin prep Papanicolaou smear with manual screening 6 5-15 [facility] Work Phone: Basophil percentageon 2020 Chloride [Moles/Vol] 103 mmol/L 98-107 [facility] Work Phone: Glucose [Mass/Vol] 102 mg/dL 74-[address] [facility] Work Phone: Comment on above: Fasting Glucose resu lt from 100 to 125 mg/dL suggests IMPAIRED HOMEOSTASIS per A.D.A. criteria.Please note revised GLUCOSE reference range effective 2017. Potassium [Moles/Vol] 4.4 mmol/L 3.5-5.1 [facility] Work Phone: Sodium [Moles/Vol] 138 mmol/L 136-[address] [facility] Work Phone: Laboratory - Chemistry and C hemistry - challengeon 04-23-2021 CO2 [Moles/Vol] 28.0 mmol/L 21.0-32.0 [facility] Work Phone: Natriuretic peptide B (Bld) [Mass/Vol] 47.4 pg/mL 0-100 [facility] Work Phone: Urea nitrogen/Creatinine [Mass ratio] 29.1 mg/mg 10-20 [facility] Work Phone: No Panel Informationon 04-23 Estimated GFR (MDRD) Amer 68 mL/min >60 [facility] Work Phone: Comment on above: GFR Calc Estimated GFR (MDRD) Non-Af Amer 56 mL/min >60 [facility] Work Phone: Comment on above: Non- GFR Calc Serum or plasma calcium manuel urement (mass/volume)on 04-23-2021 Calcium [Mass/Vol] 9.5 mg/dL 8.5-10.[address] [facility] Work Phone: Serum or plasma creatinine m easurement (mass/volume)on 04-23-2021 Creatinine [Mass/Vol] 1.00 mg/dL 0.55-1.02 [facility] Work Phone: Comment on above: The validity of the calculated GFR & GFRAA in patients over 70 years has not been determined. Clinical correlation is essential. Serum or plasma urea nitroge n measurement (mass/volume)on 04-23-2021 Urea nitrogen [Mass/Vol] 29 mg/dL 7-18 [facility] Work Phone: Thin prep Papanicolaou smear with manual screeningon 04-23-2021 Thin prep Papanicolaou smear with manual screening 7 5-15 [facility] Work Phone: Coumadin Management: Sunshine cooper Calcon 04-09-2017 INR Coag RelTime (Bld) Hospital lab Invalid Interpretation Code [facility] Work Phone: [phone] INR Coag RelTime (Bld) 2 to 3 Invalid Interpretation Code [facility] Work Phone: [phone] INR Coag RelTime (PPP) 3.3 {INR} Invalid Interpretation Code [facility] Work Phone: [phone] Prothrombin time (PT) Coag time (PPP) 32.0 s Invalid Interpretation Code [facility] Work Phone: [phone] Lab Report: Prothrombin Time w/INRon 04-09-2017 Prothrombin time (PT) Coag time (PPP) 32 s High 11.7-14.9 [facility] Work Phone: [phone] Coumadin Management: Vladimirari n Calcon 03-20-2017 INR Coag RelTime (Bld) Hospital lab Invalid Interpretation Code [facility] Work Phone: [phone] INR Coag RelTime (Bld) 2 to 3 Invalid Interpretation Code [facility] Work Phone: [phone] INR Coag RelTime (PPP) 2.4 {INR} Invalid Interpretation Code [facility] Work Phone: [phone] Prothrombin time (PT) Coag time (PPP) 25.4 s Invalid Interpretation Code [facility] Work Phone: [phone] Lab Report: Prothrombin Time w/INRon 03-20-2017 Prothrombin time (PT) Coag time (PPP) 25.4 s High 11.7-14.9 [facility] Work Phone: [phone] Office Visit: [facility] 12-27-19 Documentation of current medications (procedure) Done Invalid Interpretation Code [facility] Work Phone: [phone] Fall risk assessment Yes Invalid Interpretation Code [facility] Work Phone: [phone] Replaced Document: Maura E CG Observationson 12-26-2016 EKG QRS axis 2 deg Invalid Interpretation Code [facility] Work Phone: [phone] Interpretation Sinus Rhythm WITHIN NORMAL LIMITS Invalid Interpretation Code [facility] Work Phone: [phone] P [place] 22 deg Invalid Interpretation Code [facility] Work Phone: [phone] ID Interval 164 ms Invalid Interpretation Code [facility] Work Phone: [phone] Pulse (Heart Rate) 65 /min Invalid Interpretation Code [facility] Work Phone: [phone] QRS Duration 94 ms Invalid Interpretation Code [facility] Work Phone: [phone] QT Interval new path ms Invalid Interpretation Code [facility] Work Phone: [phone] QTc Lopez 406 ms Invalid Interpretation Code [facility] Work Phone: [phone] T [place] 36 deg Invalid Interpretation Code [facility] Work Phone: [phone] Chart Maintenanceon 09-27-19 17 Left ventricular Ejection fraction 60 % Invalid Interpretation Code [facility] Work Phone: [phone] Lab Report: Basic Metabolic Profile (BMP)on 03-14-2016 Anion gap 6 mmol/L Invalid Interpretation Code 5-15 [facility] Work Phone: [phone] BUN/Creatinine Ratio 32.[address] RATIO High 10-[address] [facility] Work Phone: [phone] Calcium 9.1 mg/dL Invalid Interpretation Code 8.5-10.1 [facility] Work Phone: [phone] Chloride 95 mmol/L Low 98-107 [facility] Work Phone: [phone] CO2 31.0 mmol/L Invalid Interpretation Code 21.0-32.0 [facility] Work Phone: [phone] Creatinine 1.00 mg/dL Invalid Interpretation Code 0.55-1.20 [facility] Work Phone: [phone] eGFR (non-black) 57 mL/min/{1.73_m2} Low >60 [facility] Work Phone: [phone] eGFR (non-black) 69 mL/min/{1.73_m2} Invalid Interpretation Code >60 [facility] Work Phone: [phone] Glucose mass conc 109 mg/dL Invalid Interpretation Code 70-110 [facility] Work Phone: [phone] Potassium molar conc 5.0 mmol/L Invalid Interpretation Code 3.5-5.1 [facility] Work Phone: [phone] Sodium 132 mmol/L Low 136-145 [facility] Work Phone: [phone] Urea nitrogen 32 mg/dL High 7-18 [facility] Work Phone: [phone] Lab Report: CBC W/Diff, Auto matedon 03-14-2016 Absolute Neut 3.1 X10 3/UL Invalid Interpretation Code 2.0-7.7 [facility] Work Phone: [phone] Basophils/100 WBC Auto (Bld) 1.1 % High 0-1 [facility] Work Phone: [phone] Eosinophils/100 leukocytes 2.1 % Invalid Interpretation Code 0-5 [facility] Work Phone: [phone] Erythrocyte distribution width Auto Ratio (RBC) 13.5 % Invalid Interpretation Code 11.6-14.6 [facility] [employer] Work Phone: [phone] Erythrocytes (RBC) 4.00 10*6/uL Low [facility].2-5.4 [facility] Work Phone: [phone] Hematocrit (HCT) 35.7 % Low 37-47 [facility] [employer] Work Phone: [phone] Hemoglobin mass conc (Bld) 11.8 g/dL Low 12.0-15.0 [facility] Work Phone: [phone] Immature granulocytes/100 WBC (Bld) 0.400 % Invalid Interpretation Code 0.0-0.9 [facility] Work Phone: [phone] Lymphocytes 1.53 X10 3/UL Invalid Interpretation Code 0.83-4.51 [facility] Work Phone: [phone] Lymphocytes/100 leukocytes 28.7 % Invalid Interpretation Code 19-41 [facility] Work Phone: [phone] MCH 29.5 pg Invalid Interpretation Code 27.0-32.0 [facility] Work Phone: [phone] MCHC mass conc (RBC) 33.1 G/GL Invalid Interpretation Code 32-36 [facility] Work Phone: [phone] MCV 89.3 fL Invalid Interpretation Code 81-99 [facility] Work Phone: [phone] Monocytes/100 leukocytes 9.2 % Invalid Interpretation Code 0-10 [facility] Work Phone: [phone] Neutrophils/100 WBC Auto (Bld) 58.5 % Invalid Interpretation Code 47-70 [facility] Work Phone: [phone] Platelets 373 10*3/mm3 Invalid Interpretation Code 150-450 [employer] Work Phone: [phone] PMV by Jaci 9.4 fL Invalid Interpretation Code 6.2-12.0 [employer] Work Phone: [phone] RDW SD 44.0 fL High 35.1-43.9 [employer] Work Phone: [phone] WBC (Leukocytes) 5.3 10*3/uL Invalid Interpretation Code 4.4-11.0 [employer] Work Phone: [phone] Lab Report: Thyroid Stim Hor elier (TSH)on 03-14-2016 Thyroid stimulating hormone (TSH) 1.38 u[iU]/mL Invalid Interpretation Code 0.358-3.74 [employer] Work Phone: [phone] Office Visiton 03-14-2016 Dietary management education, guidance, and counseling (procedure) yes Invalid Interpretation Code [employer] Phone: [phone] Tobacco use CPHS Never smoker Invalid Interpretation Code [employer] Work Phone: [phone] 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 Alanine aminotransferase (ALT) 21 U/L Invalid Interpretation Code [employer] Phone: [phone] Albumin 3.8 g/dL Invalid Interpretation Code [employer] Work Phone: [phone] Alkaline phosphatase (ALP) 62 U/L Invalid Interpretation Code [employer] Work Phone: [phone] Aspartate aminotransferase (AST) 28 U/L Invalid Interpretation Code [employer] Work Phone: [phone] Bilirubin (total) 0.40 mg/dL Invalid Interpretation Code [employer] Work Phone: [phone] Erythrocyte sedimentation rate 28 mm/h Invalid Interpretation Code [employer] Work Phone: [phone] Protein 7.6 g/dL Invalid Interpretation Code [employer] Work Phone: [phone] Office Visit: [facility] 09-21-19 15 General cardiovascular disease 10Y risk [#] [facility] 7 % Invalid Interpretation Code [employer] Work Phone: [phone] Tobacco smoking status NHIS Never Invalid Interpretation Code [employer] Work Phone: [phone] Lab Report: BNP,B-Type NATRI URETIC PEPTIDEon 08-11-2014 BNP 32.2 pg/mL Invalid Interpretation Code 0-100 [facility] [employer] Work Phone: [phone] Lab Report: Magnesiumon Magnesium 2.0 mg/dL Invalid Interpretation Code 1.8-2.4 [facility] [employer] Work Phone: [phone] Lab Report: T4 Total, Thyrox inon 08-11-2014 Thyroxine (T4) 10.1 ug/dL Invalid Interpretation Code 4.8-13.9 [facility] [employer] Work Phone: [phone] Office Visit: MMMon 08-12-19 15 cardiac risk group B Invalid Interpretation Code [facility] Work Phone: [phone] External Other: [employer] of [employer] 11-17-2013 methcontact secmsg Invalid Interpretation Code 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 Work Phone: [phone] HDL Cholesterol 93 mg/dL Invalid Interpretation Code [facility] Work Phone: [phone] LDL Cholesterol 104 mg/dL Invalid Interpretation Code [facility] Work Phone: [phone] Triglyceride 63 mg/dL Invalid Interpretation Code [facility] Work Phone: [phone] very low density lipoproteins 13 mg/dL Invalid Interpretation Code [facility] Work Phone: [phone] COVID-19 virus antigen assay SARS-CoV-2 (COVID-19) Ag IA.rapid Ql (Resp) [facility] Work Phone: Culture, urine Bacteria identified Cx Nom (U) Aerococcus viridans. [facility] Work Phone: Bacteria identified Cx Nom (U) Escherichia coli [facility] Work Phone: Hemoglobin.gastrointestinal Ql ([place]) Gastric Occult Blood Positive [facility] Work Phone: Vital Signs Date Time Vital Sign Value Performing Clinician Facility 12-17-2024 08:56-0400 Body mass index (BMI) [Ratio] 30.7 kg/m2 Dr. Bridget Swenson MD Work Phone: 6(669)069-568002 [place] [address] 12-17-2024 08:56-0400 Body weight 71.[address] Bridget Swenson MD Work Phone: 6(712)784-995802 [place] [address] 12-17-2024 08:56-0400 Diastolic blood pressure 65 mm[Hg] Dr. Bridget Swenson MD Work Phone: 5(950)110-927602 [place] [address] 12-17-2024 08:56-0400 Heart rate 75 /min Dr. Bridget Swenson MD Work Phone: 0(878)533-006402 [place] [address] 12-17-2024 08:56-0400 Respiratory rate 18 /min Dr. Bridget Swenson MD Work Phone: 1(809)166-348102 [place] [address] 12-17-2024 08:56-0400 SaO2% (BldA) [Mass fraction] 94 % Dr. Bridget Swenson MD Work Phone: 5(817)444-236602 [place] [address] 12-17-2024 08:56-0400 Systolic blood pressure 110 mm[Hg] Dr. Bridget Swenson MD Work Phone: 9(925)564-296102 [place] [address] 11-19-2024 11:01-0400 Diastolic blood pressure 64 mm[Hg] Dr. Bridget Swenson MD Work Phone: 4(667)623-474802 [place] [address] 11-19-2024 11:01-0400 Heart rate 58 /min Dr. Bridget Swenson MD Work Phone: 4(072)114-340102 [place] [address] 11-19-2024 11:01-0400 Systolic blood pressure 145 mm[Hg] Dr. Bridget Swenson MD Work Phone: 9(875)017-322302 [place] [address] 11-19-2024 10:43-0400 Body height 152.[address] Bridget Swenson MD Work Phone: 5(385)910-708702 [place] [address] 11-19-2024 10:43-0400 Body mass index (BMI) [Ratio] 29.9 kg/m2 Dr. Bridget Swenson MD Work Phone: [facility] 11-19-2024 10:43-0400 Body weight 69.[address] Bridget Swenson MD Work Phone: [facility] 11-19-2024 10:43-0400 Respiratory rate 16 /min Dr. Bridget Swenson MD Work Phone: [facility] 11-17-2024 19:00-0400 Diastolic blood pressure 66 mm[Hg] Dr. Bridget Swenson MD Work Phone: [facility] 11-17-2024 19:00-0400 Heart rate 85 /min Dr. Bridget Swenson MD Work Phone: [facility] 11-17-2024 19:00-0400 Respiratory rate 11 /min Dr. Bridget Swenson MD Work Phone: 1(023)610-367578 [place] [address] 11-17-2024 19:00-0400 SaO2% (BldA) [Mass fraction] 97 % Dr. Bridget Swenson MD Work Phone: [facility] 11-17-2024 19:00-0400 Systolic blood pressure 143 mm[Hg] Dr. Bridget Swenson MD Work Phone: [facility] 11-17-2024 12:56-0400 Body height 152.[address] Bridget Swenson MD Work Phone: [facility] 11-17-2024 12:56-0400 Body mass index (BMI) [Ratio] 30.9 kg/m2 Dr. Bridget Swenson MD Work Phone: [facility] 11-17-2024 12:56-0400 Body temperature 97.9 [degF] Dr. Bridget Swenson MD Work Phone: [facility] 11-17-2024 12:56-0400 Body weight [address] Bridget Swenson MD Work Phone: [facility] 10-13-2024 03:00-0400 Diastolic blood pressure 54 mm[Hg] Nichole Guerra DO Work Phone: [facility] 10-13-2024 03:00-0400 Heart rate 82 /min Nichole Guerra DO Work Phone: [facility] 10-13-2024 03:00-0400 Respiratory rate 18 /min Nichole Guerra DO Work Phone: [facility] 10-13-2024 03:00-0400 SaO2% (BldA) [Mass fraction] 93 % Nichole Guerra DO Work Phone: [facility] 10-13-2024 03:00-0400 Systolic blood pressure 143 mm[Hg] Nichole Guerra DO Work Phone: [facility] 10-12-2024 23:14-0400 Body temperature 97.81 [degF] Nichole Guerra DO Work Phone: [facility] 10-09-2024 12:36-0400 Body temperature 98 [degF] Dr. Bridget Swensno MD Work Phone: [facility] 10-09-2024 12:36-0400 Diastolic blood pressure 48 mm[Hg] Dr. Bridget Swenson MD Work Phone: [facility] 10-09-2024 12:36-0400 Heart rate 68 /min Dr. Bridget Swenson MD Work Phone: [facility] 10-09-2024 12:36-0400 Respiratory rate 16 /min Dr. Bridget Swenson MD Work Phone: [facility] 10-09-2024 12:36-0400 SaO2% (BldA) [Mass fraction] 98 % Dr. Bridget Swenson MD Work Phone: [facility] 10-09-2024 12:36-0400 Systolic blood pressure 124 mm[Hg] Dr. Bridget Swenson MD Work Phone: [facility] 10-09-2024 11:50-0400 Body mass index (BMI) [Ratio] 29.7 kg/m2 Dr. Bridget Swenson MD Work Phone: 5(158)774-109202 [place] [address] 10-09-2024 06:00-0400 Body weight 69.[address] Bridget Swenson MD Work Phone: 2(358)352-456702 [place] [address] 10-07-2024 14:01-0400 Body height 152.[address] Bridget Swenson MD Work Phone: 1(275)698-074102 [place] [address] 10-04-2024 14:00-0400 Diastolic blood pressure 52 mm[Hg] Dr. Bridget Swenson MD Work Phone: 0(145)091-970302 [place] [address] 10-04-2024 14:00-0400 Systolic blood pressure 151 mm[Hg] Dr. Bridget Swenson MD Work Phone: 5(873)156-387202 [place] [address] 10-04-2024 01:06-0400 Body temperature 97.9 [degF] Dr. Bridget Swenson MD Work Phone: 0(126)245-430002 [place] [address] 10-04-2024 01:06-0400 Heart rate 88 /min Dr. Bridget Swenson MD Work Phone: 3(177)553-487102 [place] [address] 10-04-2024 01:06-0400 Respiratory rate 18 /min Dr. Bridget Swenson MD Work Phone: 4(310)780-109302 [place] [address] 10-04-2024 01:06-0400 SaO2% (BldA) [Mass fraction] 99 % Dr. Bridget Swenson MD Work Phone: 6(003)497-286002 [place] [address] 10-03-2024 19:05-0400 Body mass index (BMI) [Ratio] 26.6 kg/m2 Dr. Bridget Swenson MD Work Phone: 3(473)158-714702 [place] [address] 10-03-2024 19:05-0400 Body weight 70.[address] Bridget Swenson MD Work Phone: 9(355)237-754202 [place] [address] 10-03-2024 17:44-0400 Body height 162.[address] Bridget Swenson MD Work Phone: 9(542)294-438478 [place] [address] 10-01-2024 20:11-0400 Body temperature 98.2 [degF] Dr. Bridget Swenson MD Work Phone: 5(509)135-607802 [place] [address] 10-01-2024 20:11-0400 Heart rate 86 /min Dr. Bridget Swenson MD Work Phone: 1(455)563-921702 [place] [address] 10-01-2024 20:11-0400 Respiratory rate 20 /min Dr. Bridget Swenson MD Work Phone: 9(748)514-316902 [place] [address] 10-01-2024 20:11-0400 SaO2% (BldA) [Mass fraction] 97 % Dr. Bridget Swenson MD Work Phone: 6(274)054-669302 [place] [address] 10-01-2024 18:00-0400 Diastolic blood pressure 65 mm[Hg] Dr. Bridget Swenson MD Work Phone: 8(674)763-118502 [place] [address] 10-01-2024 18:00-0400 Systolic blood pressure 160 mm[Hg] Dr. Bridget Swenson MD Work Phone: 4(505)867-649302 [place] [address] 10-01-2024 15:22-0400 Body mass index (BMI) [Ratio] 27.2 kg/m2 Dr. Bridget Swenson MD Work Phone: 1(106)985-100402 [place] [address] 10-01-2024 15:22-0400 Body weight [address] Bridget Swenson MD Work Phone: 8(827)744-639102 [place] [address] 09-03-2024 12:18-0400 Body temperature 97.8 [degF] Dr. Bridget Swenson MD Work Phone: 6(213)912-862302 [place] [address] 09-03-2024 12:18-0400 Diastolic blood pressure 45 mm[Hg] Dr. Bridget Swenson MD Work Phone: 7(150)524-050102 [place] [address] 09-03-2024 12:18-0400 Heart rate 75 /min Dr. Bridget Swenson MD Work Phone: 2(088)296-075802 [place] [address] 09-03-2024 12:18-0400 Respiratory rate 16 /min Dr. Bridget Swenson MD Work Phone: [facility] 09-03-2024 12:18-0400 SaO2% (BldA) [Mass fraction] 96 % Dr. Bridget Swenson MD Work Phone: [facility] 09-03-2024 12:18-0400 Systolic blood pressure 134 mm[Hg] Dr. Bridget Swenson MD Work Phone: 3(111)323-818378 [place] [address] 09-01-2024 13:10-0400 Body weight [address] Bridget Swenson MD Work Phone: 4(219)561-235602 [place] [address] 09-01-2024 03:03-0400 Body mass index (BMI) [Ratio] 28 kg/m2 Dr. Bridget Swenson MD Work Phone: 4(865)416-242602 [place] [address] 08-31-2024 16:18-0400 Body mass index (BMI) [Ratio] 31.6 kg/m2 Dr. Bridget Swenson MD Work Phone: [facility] 08-31-2024 16:07-0400 Diastolic blood pressure 44 mm[Hg] Dr. Bridget Swenson MD Work Phone: 5(150)282-658578 [place] [address] 08-31-2024 16:07-0400 Heart rate 98 /min Dr. Bridget Swenson MD Work Phone: 6(313)726-464902 [place] [address] 08-31-2024 16:07-0400 Systolic blood pressure 138 mm[Hg] Dr. Bridget Swenson MD Work Phone: [facility] 08-31-2024 16:04-0400 Body temperature 98.2 [degF] Dr. Bridget Swenson MD Work Phone: [facility] 08-31-2024 16:04-0400 Respiratory rate 16 /min Dr. Bridget Swenson MD Work Phone: [facility] 08-31-2024 16:04-0400 SaO2% (BldA) [Mass fraction] 94 % Dr. Bridget Swenson MD Work Phone: [facility] 08-31-2024 14:33-0400 Body weight 73.[address] Bridget Swenson MD Work Phone: 3(729)965-857478 [place] [address] 08-30-2024 23:35-0400 Inhaled oxygen concentration 21 % Dr. Bridget Swenson MD Work Phone: 3(635)047-824202 [place] [address] 08-30-2024 14:00-0400 Diastolic blood pressure 78 mm[Hg] Dr. Bridget Swenson MD Work Phone: 9(711)108-350702 [place] [address] 08-30-2024 14:00-0400 Heart rate 89 /min Dr. Bridget Swenson MD Work Phone: 6(315)601-154102 [place] [address] 08-30-2024 14:00-0400 Respiratory rate 18 /min Dr. Bridget Swenson MD Work Phone: 8(328)019-537202 [place] [address] 08-30-2024 14:00-0400 SaO2% (BldA) [Mass fraction] 95 % Dr. Bridget Swenson MD Work Phone: 8(570)414-225478 [place] [address] 08-30-2024 14:00-0400 Systolic blood pressure 166 mm[Hg] Dr. Bridget Swenson MD Work Phone: 6(007)050-557502 [place] [address] 08-30-2024 13:30-0400 Body temperature 98.1 [degF] Dr. Bridget Swenson MD Work Phone: 7(006)235-137702 [place] [address] 08-30-2024 10:25-0400 Body height 152.[address] Bridget Swenson MD Work Phone: 3(771)506-098078 [place] [address] 08-30-2024 10:25-0400 Body mass index (BMI) [Ratio] 30.8 kg/m2 Dr. Bridget Swenson MD Work Phone: 8(767)453-551078 [place] [address] 08-30-2024 10:25-0400 Body weight 71.[address] Bridget Swenson MD Work Phone: 9(422)883-947402 [place] [address] 07-26-2024 11:21-0400 Body mass index (BMI) [Ratio] 32.5 kg/m2 Dr. Bridget Swenson MD Work Phone: [facility] 07-26-2024 11:21-0400 Body weight 75.[address] Bridget Swenson MD Work Phone: [facility] 07-26-2024 11:21-0400 Diastolic blood pressure 74 mm[Hg] Dr. Bridget Swenson MD Work Phone: 9(422)043-587578 [place] [address] 07-26-2024 11:21-0400 Heart rate 63 /min Dr. Bridget Swenson MD Work Phone: 5(613)481-731678 [place] [address] 07-26-2024 11:21-0400 Respiratory rate 18 /min Dr. Bridget Swenson MD Work Phone: 6(828)340-219578 [place] [address] 07-26-2024 11:21-0400 SaO2% (BldA) [Mass fraction] 96 % Dr. Bridget Swenson MD Work Phone: 1(812)637-907978 [place] [address] 07-26-2024 11:21-0400 Systolic blood pressure 169 mm[Hg] Dr. Bridget Swenson MD Work Phone: [facility] 07-26-2024 09:46-0400 Body temperature 97.9 [degF] Dr. Bridget Swenson MD Work Phone: 9(942)506-571778 [place] [address] 07-26-2024 09:46-0400 Diastolic blood pressure 53 mm[Hg] Dr. Bridget Swenson MD Work Phone: [facility] 07-26-2024 09:46-0400 Heart rate 74 /min Dr. Bridget Swenson MD Work Phone: [facility] 07-26-2024 09:46-0400 Respiratory rate 16 /min Dr. Bridget Swenson MD Work Phone: [facility] 07-26-2024 09:46-0400 SaO2% (BldA) [Mass fraction] 95 % Dr. Bridget Swenson MD Work Phone: [facility] 07-26-2024 09:46-0400 Systolic blood pressure 138 mm[Hg] Dr. Bridget Swenson MD Work Phone: [facility] 07-21-2024 09:54-0400 Body weight 76.[address] Bridget Swenson MD Work Phone: [facility] 07-20-2024 16:17-0400 Body mass index (BMI) [Ratio] 33 kg/m2 Dr. Bridget Swenson MD Work Phone: [facility] 07-10-2024 09:09-0500 Inhaled oxygen flow rate 2 L/min Dr. Bridget Swenson MD Work Phone: [facility] 06-26-2024 17:49-0500 Diastolic blood pressure 50 mm[Hg] Dr. Bridget Swenson MD Work Phone: 9(558)373-867578 [place] [address] 06-26-2024 17:49-0500 Heart rate 67 /min Dr. Bridget Swenson MD Work Phone: [facility] 06-26-2024 17:49-0500 Respiratory rate 16 /min Dr. Bridget Swenson MD Work Phone: [facility] 06-26-2024 17:49-0500 SaO2% (BldA) [Mass fraction] 99 % Dr. Bridget Swenson MD Work Phone: [facility] 06-26-2024 17:49-0500 Systolic blood pressure 198 mm[Hg] Dr. Bridget Swenson MD Work Phone: [facility] 06-26-2024 16:53-0500 Inhaled oxygen flow rate 2 L/min Dr. Bridget Swenson MD Work Phone: [facility] 06-26-2024 16:00-0500 Body temperature 98 [degF] Dr. Bridget Swenson MD Work Phone: [facility] 06-26-2024 12:27-0500 Body mass index (BMI) [Ratio] 32.5 kg/m2 Dr. Bridget Swenson MD Work Phone: [facility] 06-26-2024 12:27-0500 Body weight 75.[address] Bridget Swenson MD Work Phone: [facility] 06-15-2024 10:46-0500 Body height 152.4 cm Jessa Mikula WELCOME HOSTESS.PERSONAL INJURY SPECIALIST Work Phone: [facility] 06-15-2024 10:46-0500 Body mass index (BMI) [Ratio] 31.64 kg/m2 Jessa Mikula WELCOME HOSTESS.PERSONAL INJURY SPECIALIST Work Phone: [facility] 06-15-2024 10:46-0500 Body weight 73.48 kg Jessa Mikula WELCOME HOSTESS.PERSONAL INJURY SPECIALIST Work Phone: [facility] 06-15-2024 10:46-0500 Diastolic blood pressure 44 mm[Hg] Jessa Mikula WELCOME HOSTESS.PERSONAL INJURY SPECIALIST Work Phone: [facility] 06-15-2024 10:46-0500 Heart rate 84 /min Jessa Mikula WELCOME HOSTESS.PERSONAL INJURY SPECIALIST Work Phone: [facility] 06-15-2024 10:46-0500 Systolic blood pressure 171 mm[Hg] Jessa Mikula WELCOME HOSTESS.PERSONAL INJURY SPECIALIST Work Phone: [facility] 06-15-2024 05:30-0500 Heart rate 69 /min Dr. Bridget Swenson MD Work Phone: [facility] 06-15-2024 05:30-0500 Respiratory rate 16 /min Dr. Bridget Swenson MD Work Phone: [facility] 06-14-2024 19:57-0500 Diastolic blood pressure 52 mm[Hg] Dr. Bridget Swenson MD Work Phone: [facility] 06-14-2024 19:57-0500 Systolic blood pressure 157 mm[Hg] Dr. Bridget Swenson MD Work Phone: [facility] 06-14-2024 19:15-0500 Body temperature 98.2 [degF] Dr. Bridget Swenson MD Work Phone: [facility] 06-14-2024 19:15-0500 SaO2% (BldA) [Mass fraction] 95 % Dr. Bridget Swenson MD Work Phone: 2(506)381-252546 [address] 06-08-2024 15:57-0500 Body mass index (BMI) [Ratio] 32.9 kg/m2 Dr. Bridget Swenson MD Work Phone: 4(894)210-012102 [place] [address] 06-08-2024 15:57-0500 Body weight 76.[address] Bridget Swenson MD Work Phone: 7(455)270-823402 [place] [address] 06-06-2024 05:54-0500 Inhaled oxygen flow rate 2 L/min Dr. Bridget Swenson MD Work Phone: 9(129)552-394302 [place] [address] 05-30-2024 10:00-0500 Diastolic blood pressure 68 mm[Hg] Dr. Bridget Swenson MD Work Phone: 1(639)711-568202 [place] [address] 05-30-2024 10:00-0500 Systolic blood pressure 138 mm[Hg] Dr. Bridget Swenson MD Work Phone: 1(439)991-221502 [place] [address] 05-30-2024 08:36-0500 Heart rate 68 /min Dr. Bridget Swenson MD Work Phone: 4(050)611-542902 [place] [address] 05-30-2024 04:38-0500 Body temperature 98 [degF] Dr. Bridget Swenson MD Work Phone: 5(214)801-918246 [address] 05-30-2024 04:38-0500 Respiratory rate 16 /min Dr. Bridget Swenson MD Work Phone: 7(280)380-120402 [place] [address] 05-30-2024 04:38-0500 SaO2% (BldA) [Mass fraction] 95 % Dr. Bridget Swenson MD Work Phone: 4(232)169-569246 [address] 05-28-2024 07:20-0500 Inhaled oxygen flow rate 2 L/min Dr. Bridget Swenson MD Work Phone: [facility] 05-26-2024 06:00-0500 Body mass index (BMI) [Ratio] 32.1 kg/m2 Dr. Bridget Swenson MD Work Phone: [facility] 05-26-2024 06:00-0500 Body weight 74.[address] Bridget Swenson MD Work Phone: [facility] 05-18-2024 20:34-0500 Inhaled oxygen concentration 21 % Dr. Bridget Swenson MD Work Phone: [facility] 05-14-2024 12:15-0500 Diastolic blood pressure 71 mm[Hg] [facility] 05-14-2024 12:15-0500 Heart rate 60 /min [facility] 05-14-2024 12:15-0500 SaO2% (BldA) [Mass fraction] 94 % [facility] 05-14-2024 12:15-0500 Systolic blood pressure 157 mm[Hg] [facility] 05-14-2024 12:05-0500 Respiratory rate 33 /min [facility] 05-14-2024 11:32-0500 Body temperature 97.39 [degF] [facility] 05-11-2024 16:30-0500 Diastolic blood pressure 53 mm[Hg] Dr. Bridget Swenson MD Work Phone: [facility] 05-11-2024 16:30-0500 Heart rate 87 /min Dr. Bridget Swenson MD Work Phone: [facility] 05-11-2024 16:30-0500 Inhaled oxygen flow rate 2 L/min Dr. Bridget Swenson MD Work Phone: [facility] 05-11-2024 16:30-0500 Respiratory rate 14 /min Dr. Bridget Swenson MD Work Phone: [facility] 05-11-2024 16:30-0500 SaO2% (BldA) [Mass fraction] 99 % Dr. Bridget Swenson MD Work Phone: [facility] 05-11-2024 16:30-0500 Systolic blood pressure 145 mm[Hg] Dr. Bridget Swenson MD Work Phone: [facility] 05-11-2024 11:52-0500 Body mass index (BMI) [Ratio] 34 kg/m2 Dr. Bridget Swenson MD Work Phone: 2(661)[phone] [place] [address] 05-11-2024 11:52-0500 Body weight 78.[address] Bridget Swenson MD Work Phone: [facility] 05-11-2024 11:46-0500 Body temperature 98 [degF] Dr. Bridget Swenson MD Work Phone: [facility] 05-12-2023 09:28-0500 Heart rate 87 /min Dr. Doyle Swenson Work Phone: 3(306)[phone] [place] [address] 05-12-2023 09:28-0500 Respiratory rate 16 /min Dr. Doyle Swenson Work Phone: [facility] 05-12-2023 09:28-0500 SaO2% (BldA) [Mass fraction] 92 % Dr. Doyle Swenson Work Phone: [facility] 05-12-2023 07:31-0500 Body height 152.[address] Doyle Swenson Work Phone: [facility] 05-12-2023 07:31-0500 Body temperature 99.9 [degF] Dr. Doyle Swenson Work Phone: [facility] 05-12-2023 07:31-0500 Diastolic blood pressure 81 mm[Hg] Dr. Doyle Swenson Work Phone: [facility] 05-12-2023 07:31-0500 Systolic blood pressure 201 mm[Hg] Dr. Doyle Swenson Work Phone: [facility] 01-28-2023 14:05-0400 Body height 152.[address] Doyle Swenson Work Phone: [facility] 01-28-2023 14:05-0400 Body mass index (BMI) [Ratio] 33.5 kg/m2 Dr. Doyle Swenson Work Phone: [facility] 01-28-2023 14:05-0400 Body weight 78.[address] Doyle Swenson Work Phone: [facility] 01-28-2023 14:05-0400 Diastolic blood pressure 82 mm[Hg] Dr. Doyle Swenson Work Phone: [facility] 01-28-2023 14:05-0400 Heart rate 66 /min Dr. Doyle Swenson Work Phone: 7(484)[phone] [place] [address] 01-28-2023 14:05-0400 Respiratory rate 18 /min Dr. Doyle Swenson Work Phone: 4(678)249-691378 [place] [address] 01-28-2023 14:05-0400 Systolic blood pressure 186 mm[Hg] Dr. Doyle Swenson Work Phone: 1(705)626-331478 [place] [address] 06-18-2022 10:21-0500 Body height 152.[address] Doyle Swenson Work Phone: 8(604)[phone] [place] [address] 05-18-2022 19:38-0500 Diastolic blood pressure 80 mm[Hg] Dr. Doyle Swenson Work Phone: [facility] 05-18-2022 19:38-0500 Heart rate 78 /min Dr. Doyle Swenson Work Phone: [facility] 05-18-2022 19:38-0500 Respiratory rate 15 /min Dr. Doyle Swenson Work Phone: [facility] 05-18-2022 19:38-0500 SaO2% (BldA) [Mass fraction] 0 % Dr. Doyle Swenson Work Phone: [facility] 05-18-2022 19:38-0500 Systolic blood pressure 124 mm[Hg] Dr. Doyle Swenson Work Phone: [facility] 05-18-2022 16:04-0500 Body height 152.[address] Doyle Swenson Work Phone: [facility] 05-18-2022 16:04-0500 Body mass index (BMI) [Ratio] 33.7 kg/m2 Dr. Doyle Swenson Work Phone: [facility] 05-18-2022 16:04-0500 Body temperature 98.8 [degF] Dr. Doyle Swenson Work Phone: [facility] 05-18-2022 16:04-0500 Body weight 78.[address] Doyle Swenson Work Phone: [facility] 04-18-2022 14:56-0500 Body temperature 97.7 [degF] Dr. Doyle Swenson Work Phone: [facility] 04-18-2022 14:56-0500 Diastolic blood pressure 70 mm[Hg] Dr. Doyle Swenson Work Phone: [facility] 04-18-2022 14:56-0500 Heart rate 79 /min Dr. Doyle Swenson Work Phone: [facility] 04-18-2022 14:56-0500 Respiratory rate 18 /min Dr. Doyle Swenson Work Phone: [facility] 04-18-2022 14:56-0500 SaO2% (BldA) [Mass fraction] 95 % Dr. Doyle Swenson Work Phone: [facility] 04-18-2022 14:56-0500 Systolic blood pressure 145 mm[Hg] Dr. Doyle Swenson Work Phone: [facility] 04-17-2022 13:55-0500 Body height 152.[address] Doyle Swenson Work Phone: [facility] Work Phone: 04-17-2022 13:55-0500 Body mass index (BMI) [Ratio] 33.6 kg/m2 Dr. Doyle Swenson Work Phone: [facility] 04-17-2022 13:55-0500 Body weight 78.[address] Doyle Swenson Work Phone: [facility] 04-11-2022 14:28-0500 Inhaled oxygen flow rate 2 L/min Dr. Doyle Swenson Work Phone: [facility] 04-11-2022 09:04-0500 Body temperature 98 [degF] Dr. Doyle Swenson Work Phone: [facility] Work Phone: 04-11-2022 09:04-0500 Diastolic blood pressure 48 mm[Hg] Dr. Doyle Swenson Work Phone: [facility] Work Phone: 04-11-2022 09:04-0500 Heart rate 65 /min Dr. Doyle Swenson Work Phone: [facility] Work Phone: 04-11-2022 09:04-0500 Inhaled oxygen flow rate 1 L/min Dr. Doyle Swenson Work Phone: [facility] Work Phone: 04-11-2022 09:04-0500 Respiratory rate 16 /min Dr. Doyle Swenson Work Phone: [facility] Work Phone: 04-11-2022 09:04-0500 SaO2% (BldA) [Mass fraction] 96 % Dr. Doyle Swenson Work Phone: [facility] Work Phone: 04-11-2022 09:04-0500 Systolic blood pressure 138 mm[Hg] Dr. Doyle Swenson Work Phone: [facility] Work Phone: 04-10-2022 22:43-0500 Body height 152.[address] Doyle Swenson Work Phone: [facility] Work Phone: 04-10-2022 22:43-0500 Body mass index (BMI) [Ratio] 33.7 kg/m2 Dr. Doyle Swenson Work Phone: [facility] Work Phone: 04-10-2022 22:43-0500 Body weight 78.[address] Doyle Swenson Work Phone: [facility] Work Phone: 04-10-2022 21:10-0500 Body temperature 97.9 [degF] Dr. Doyle Swenson Work Phone: [facility] Work Phone: 04-10-2022 21:10-0500 Diastolic blood pressure 59 mm[Hg] Dr. Doyle Swenson Work Phone: [facility] Work Phone: 04-10-2022 21:10-0500 Heart rate 89 /min Dr. Doyle Swenson Work Phone: [facility] Work Phone: 04-10-2022 21:10-0500 Respiratory rate 18 /min Dr. Doyle Swenson Work Phone: [facility] Work Phone: 04-10-2022 21:10-0500 SaO2% (BldA) [Mass fraction] 93 % Dr. Doyle Swenson Work Phone: [facility] Work Phone: 04-10-2022 21:10-0500 Systolic blood pressure 142 mm[Hg] Dr. Doyle Swenson Work Phone: [facility] Work Phone: 04-10-2022 16:47-0500 Body height 152.[address] Doyle Swenson Work Phone: [facility] Work Phone: 04-10-2022 16:47-0500 Body mass index (BMI) [Ratio] 33.5 kg/m2 Dr. Doyle Swenson Work Phone: [facility] Work Phone: 04-10-2022 16:47-0500 Body weight 78.[address] Doyle Swenson Work Phone: [facility] Work Phone: 03-18-2022 14:05-0500 Body temperature 97.2 [degF] Dr. Doyle Swenson Work Phone: [facility] 03-18-2022 14:05-0500 Diastolic blood pressure 46 mm[Hg] Dr. Doyle Swenson Work Phone: [facility] 03-18-2022 14:05-0500 Heart rate 73 /min Dr. Doyle Swenson Work Phone: [facility] 03-18-2022 14:05-0500 Respiratory rate 16 /min Dr. Doyle Swenson Work Phone: [facility] 03-18-2022 14:05-0500 SaO2% (BldA) [Mass fraction] 99 % Dr. Doyle Swenson Work Phone: [facility] 03-18-2022 14:05-0500 Systolic blood pressure 135 mm[Hg] Dr. Doyle Swenson Work Phone: [facility] 03-15-2022 14:00-0400 Body height 154.[address] Doyle Swenson Work Phone: [facility] Work Phone: 03-15-2022 14:00-0400 Body weight 78.[address] Doyle Swenson Work Phone: [facility] 02-18-2022 14:00-0400 Body temperature 97.2 [degF] Dr. Doyle Swenson Work Phone: [facility] Work Phone: 02-18-2022 14:00-0400 Diastolic blood pressure 56 mm[Hg] Dr. Doyle Swenson Work Phone: [facility] Work Phone: 02-18-2022 14:00-0400 Heart rate 68 /min Dr. Doyle Swenson Work Phone: [facility] Work Phone: 02-18-2022 14:00-0400 Respiratory rate 16 /min Dr. Doyle Swenson Work Phone: [facility] Work Phone: 02-18-2022 14:00-0400 SaO2% (BldA) [Mass fraction] 94 % Dr. Doyle Swenson Work Phone: [facility] Work Phone: 02-18-2022 14:00-0400 Systolic blood pressure 113 mm[Hg] Dr. Doyle Swenson Work Phone: [facility] Work Phone: 02-17-2022 12:39-0400 Body weight 80.[address] Doyle Swenson Work Phone: [facility] Work Phone: 02-17-2022 11:52-0400 Body height 154.[address] Doyle Swenson Work Phone: [facility] Work Phone: 02-16-2022 11:58-0400 Body mass index (BMI) [Ratio] 33.7 kg/m2 Dr. Doyle Swenson Work Phone: [facility] 02-14-2022 12:37-0400 Body temperature 97.9 [degF] Dr. Doyle Swenson Work Phone: [facility] 02-14-2022 12:37-0400 Diastolic blood pressure 51 mm[Hg] Dr. Doyle Swenson Work Phone: [facility] 02-14-2022 12:37-0400 Heart rate 70 /min Dr. Doyle Swenson Work Phone: [facility] 02-14-2022 12:37-0400 Respiratory rate 18 /min Dr. Doyle Swenson Work Phone: [facility] 02-14-2022 12:37-0400 SaO2% (BldA) [Mass fraction] 94 % Dr. Doyle Swenson Work Phone: [facility] 02-14-2022 12:37-0400 Systolic blood pressure 126 mm[Hg] Dr. Doyle Swenson Work Phone: [facility] 02-12-2022 14:50-0400 Body height 154.[address] Doyle Swenson Work Phone: [facility] Work Phone: 02-12-2022 14:50-0400 Body weight 81.[address] Doyle Swenson Work Phone: [facility] 02-11-2022 17:06-0400 Body mass index (BMI) [Ratio] 74.1 kg/m2 Dr. Doyle Swenson Work Phone: [facility] 02-11-2022 13:24-0400 Body temperature 97.7 [degF] Dr. Doyle Swenson Work Phone: [facility] 02-11-2022 13:24-0400 Diastolic blood pressure 62 mm[Hg] Dr. Doyle Swenson Work Phone: [facility] 02-11-2022 13:24-0400 Heart rate 66 /min Dr. Doyle Swenson Work Phone: [facility] 02-11-2022 13:24-0400 Respiratory rate 18 /min Dr. Doyle Swenson Work Phone: [facility] 02-11-2022 13:24-0400 SaO2% (BldA) [Mass fraction] 91 % Dr. Doyle Swenson Work Phone: [facility] 02-11-2022 13:24-0400 Systolic blood pressure 127 mm[Hg] Dr. Doyle Swenson Work Phone: [facility] 02-11-2022 07:40-0400 Inhaled oxygen flow rate 2 L/min Dr. Doyle Swenson Work Phone: [facility] 02-09-2022 21:49-0400 Body height 154.[address] Doyle Swenson Work Phone: [facility] Work Phone: 02-09-2022 21:49-0400 Body mass index (BMI) [Ratio] 33.5 kg/m2 Dr. Doyle Swenson Work Phone: [facility] 02-09-2022 21:49-0400 Body weight 80.[address] Doyle Swenson Work Phone: [facility] 02-09-2022 21:23-0400 Body temperature 98.4 [degF] Dr. Doyle Swenson Work Phone: [facility] Work Phone: 02-09-2022 21:23-0400 Diastolic blood pressure 52 mm[Hg] Dr. Doyle Swenson Work Phone: [facility] Work Phone: 02-09-2022 21:23-0400 Heart rate 78 /min Dr. Doyle Swenson Work Phone: [facility] Work Phone: 02-09-2022 21:23-0400 Respiratory rate 16 /min Dr. Doyle Swenson Work Phone: [facility] Work Phone: 02-09-2022 21:23-0400 SaO2% (BldA) [Mass fraction] 97 % Dr. Doyle Swenson Work Phone: [facility] Work Phone: 02-09-2022 21:23-0400 Systolic blood pressure 138 mm[Hg] Dr. Doyle Swenson Work Phone: [facility] Work Phone: 02-09-2022 16:59-0400 Body height 154.[address] Doyle Swenson Work Phone: [facility] Work Phone: 02-09-2022 16:59-0400 Body mass index (BMI) [Ratio] 35.9 kg/m2 Dr. Doyle Swneson Work Phone: [facility] Work Phone: 02-09-2022 16:59-0400 Body weight 86.[address] Doyle Swenson Work Phone: [facility] Work Phone: 01-01-2022 14:25-0400 Body height 154.[address] Doyle Swenson Work Phone: [facility] Work Phone: 01-01-2022 14:25-0400 Body mass index (BMI) [Ratio] 34 kg/m2 Dr. Doyle Swenson Work Phone: [facility] Work Phone: 01-01-2022 14:25-0400 Body weight 81.[address] Doyle Swenson Work Phone: [facility] Work Phone: 01-01-2022 14:25-0400 Diastolic blood pressure 69 mm[Hg] Dr. Doyle Swenson Work Phone: [facility] Work Phone: 01-01-2022 14:25-0400 Heart rate 69 /min Dr. Doyle Swenson Work Phone: [facility] Work Phone: 01-01-2022 14:25-0400 Respiratory rate 18 /min Dr. Doyle Swenson Work Phone: [facility] Work Phone: 01-01-2022 14:25-0400 Systolic blood pressure 176 mm[Hg] Dr. Doyle Swenson Work Phone: [facility] Work Phone: 11-22-2021 14:45-0400 Body height 154.[address] Doyle Swenson Work Phone: [facility] Work Phone: 11-22-2021 14:45-0400 Body mass index (BMI) [Ratio] 34 kg/m2 Dr. Doyle Swenson Work Phone: [facility] Work Phone: 11-22-2021 14:45-0400 Body weight 81.[address] Doyle Swenson Work Phone: [facility] Work Phone: 11-22-2021 14:45-0400 Diastolic blood pressure 76 mm[Hg] Dr. Doyle Swenson Work Phone: [facility] Work Phone: 11-22-2021 14:45-0400 Heart rate 71 /min Dr. Doyle Swenson Work Phone: [facility] Work Phone: 11-22-2021 14:45-0400 SaO2% (BldA) [Mass fraction] 94 % Dr. Doyle Swenson Work Phone: [facility] Work Phone: 11-22-2021 14:45-0400 Systolic blood pressure 148 mm[Hg] Dr. Doyle Swenson Work Phone: [facility] Work Phone: 10-04-2021 12:50-0400 Body mass index (BMI) [Ratio] 33.6 kg/m2 Dr. Doyle Swenson Work Phone: [facility] Work Phone: 10-04-2021 12:50-0400 Body weight 80.[address] Doyle Swenson Work Phone: [facility] Work Phone: 10-04-2021 12:50-0400 Diastolic blood pressure 78 mm[Hg] Dr. Doyle Swenson Work Phone: [facility] Work Phone: 10-04-2021 12:50-0400 Heart rate 69 /min Dr. Doyle Swenson Work Phone: [facility] Work Phone: 10-04-2021 12:50-0400 SaO2% (BldA) [Mass fraction] 97 % Dr. Doyle Swenson Work Phone: [facility] Work Phone: 10-04-2021 12:50-0400 Systolic blood pressure 156 mm[Hg] Dr. Doyle Swenson Work Phone: [facility] Work Phone: 07-25-2021 14:30-0400 Body temperature 98.4 [degF] Dr. Doyle Swenson Work Phone: [facility] Work Phone: 07-25-2021 14:30-0400 Diastolic blood pressure 38 mm[Hg] Dr. Doyle Swenson Work Phone: [facility] Work Phone: 07-25-2021 14:30-0400 Heart rate 67 /min Dr. Doyle Swenson Work Phone: [facility] Work Phone: 07-25-2021 14:30-0400 Respiratory rate 16 /min Dr. Doyle Swenson Work Phone: [facility] Work Phone: 07-25-2021 14:30-0400 SaO2% (BldA) [Mass fraction] 92 % Dr. Doyle Swenson Work Phone: [facility] Work Phone: 07-25-2021 14:30-0400 Systolic blood pressure 112 mm[Hg] Dr. Doyle Swenson Work Phone: [facility] Work Phone: 07-25-2021 12:07-0400 Body height 154.[address] Doyle Swenson Work Phone: [facility] Work Phone: 07-25-2021 12:07-0400 Body weight 79.[address] Doyle Swenson Work Phone: [facility] Work Phone: 07-24-2021 08:49-0400 Body mass index (BMI) [Ratio] 33.1 kg/m2 Dr. Doyle Swenson Work Phone: [facility] Work Phone: 05-01-2021 11:26-0500 Body mass index (BMI) [Ratio] 32.3 kg/m2 Dr. Doyle Swenson Work Phone: [facility] Work Phone: 05-01-2021 11:26-0500 Body weight 80.[address] Doyle Swenson Work Phone: [facility] Work Phone: 05-01-2021 11:26-0500 Diastolic blood pressure 73 mm[Hg] Dr. Doyle Swenson Work Phone: [facility] Work Phone: 05-01-2021 11:26-0500 Heart rate 68 /min Dr. Doyle Swenson Work Phone: [facility] Work Phone: 05-01-2021 11:26-0500 Respiratory rate 161 /min Dr. Doyle Swenson Work Phone: [facility] Work Phone: 05-01-2021 11:26-0500 SaO2% (BldA) [Mass fraction] 98 % Dr. Doyle Swenson Work Phone: [facility] Work Phone: 05-01-2021 11:26-0500 Systolic blood pressure 182 mm[Hg] Dr. Doyle Swenson Work Phone: [facility] Work Phone: 12-26-2016 09:43-0400 BMI (Body Mass Index) 30.83 [...] 01-18-2011 09:56-0400 Body Temperature 98.2 [degF] Yenny Cha RN [facility] Work Phone: Encounters Encounter Date Encounter Type Care Provider Facility Start: 01-25-2025 ambulatory Bridget GUTIERREZ Facility:[facility] Start: 12-17-2024 End: 12-17-2024 Sho Andino MANAGER PHP-C -[facility] Work Phone: Start: 12-17-2024 End: 12-17-[address] Bridget Swenson MD Work Phone: -[facility] Start: 11-19-2024 End: 11-19-[address] Bridget Swenson MD Work Phone: -Laboratory Start: 11-19-2024 End: 11-19-2024 Sho Andino MANAGER PHP-C -Laboratory Work Phone: Start: 11-19-2024 End: 11-19-2024 Sho Andino MANAGER PHP-C -[facility] Work Phone: Start: 11-19-2024 End: 11-19-[address] Bridget Swenson MD Work Phone: -[facility] Start: 11-19-2024 End: 11-19-2024 ambulatory Sho Andino Facility:[facility] Start: 11-17-2024 End: 11-17-2024 Dr. Bridget Swenson MD Work Phone: -Emergency Department Work Phone: Start: 11-17-2024 End: 11-17-2024 Emergency department patient visit Dr. Bridget Swenson MD Work Phone: -Emergency Department Start: 10-12-2024 End: 10-13-2024 Emergency department patient visit Nichole Guerra DO Work Phone: [facility] Emergency Medicine Comment on above: Altered mental statu s, unspecified altered mental status type (Primary Dx); UTI (urinary tract infection), bacterial Start: 10-09-2024 Dr. Santino Haas DO -[facility] Work Phone: Start: 10-08-2024 Dr. Santino Haas [facility] Work Phone: Start: 10-07-2024 Dr. Santino Haas [facility] Work Phone: Start: 10-06-2024 ambulatory Juan José Abel ty:[facility] Start: 10-06-2024 End: 10-09-2024 Evaluation and management of inpatient Dr. Bridget Swenson MD Work Phone: [facility] Work Phone: Start: 10-06-2024 End: 10-09-2024 [facility] Start: 10-05-2024 Dr. Santino Haas [facility] Work Phone: Start: 10-04-2024 Dr. Santino Haas [facility] Work Phone: Start: 10-04-2024 ambulatory Bridget Swenson Faci lity:[facility] Start: 10-04-[address] Bridget Swenson MD Work Phone: [facility] Work Phone: Start: 10-04-2024 Dr. Juan José Suarez DO Progressive Care Unit Work Phone: Start: 10-01-2024 End: 10-01-2024 Dr. Bridget Swenson MD Work Phone: -Emergency Department Work Phone: Start: 10-01-2024 End: 10-01-2024 Emergency department patient visit Bridget Swenson Facility:[facility] Start: 09-07-2024 End: 09-07-[address] Bridget Swenson MD Work Phone: [facility] Work Phone: Start: 09-07-2024 End: 09-07-2024 Dr. Zackary Lyon MD -[facility] Work Phone: Start: 09-06-2024 End: 09-06-[address] Bridget Swenson MD Work Phone: [facility] Work Phone: Start: 09-06-2024 End: 09-06-2024 Zackary Lyon MD -[facility] Start: 09-06-2024 End: 09-06-2024 ambulatory [facility] Facility:[facility] Start: 09-03-2024 Dr. Charles Sullivan MD -[facility] Work Phone: Start: 09-02-2024 Dr. Charles Sullivan MD -[facility] Work Phone: Start: 09-01-2024 End: 09-03-2024 ambulatory Dow Leela Facility:[facility] Start: 09-01-2024 End: 09-03-2024 Dr. Charles Sullivan MD -[facility] Work Phone: Start: 08-31-2024 Dr. Charles Sullivan MD -[facility] Work Phone: Start: 08-30-2024 ambulatory Bridget Swenson Faci lity:[facility] Start: 08-30-2024 Dr. Evin Mora MD -[facility] Start: 08-30-2024 End: 08-31-2024 ambulatory Charles Sullivan Facility:[facility] Start: 08-30-[address] Bridget Swenson MD Work Phone: [facility] Work Phone: Start: 08-30-2024 End: 08-31-2024 Dr. Layla Craig MD -[facility] Work Phone: Start: 07-26-2024 End: 07-26-2024 Tarik MCKEON -[facility] Work Phone: Start: 07-26-2024 End: 07-26-2024 ambulatory Dow Leela Facility:[facility] Start: 06-30-2024 End: 07-26-2024 Evaluation and management of inpatient Dr. Bridget Swenson MD Work Phone: [facility] Work Phone: Start: 06-30-2024 End: 07-26-2024 Dr. Aleks Marshall MD -[facility] Start: 06-30-2024 ambulatory Bridget Swenson Faci lity:[facility] Start: 06-26-2024 End: 06-30-2024 Evaluation and management of inpatient BRIDGET SWENSON Facility:[facility] Start: 06-26-2024 End: 06-26-2024 Dr. Horace Horta DO -Emergency [facility] Work Phone: Start: 06-26-2024 End: 06-26-2024 Emergency department patient visit Bridget Swenson Facility:[facility] Start: 06-21-2024 End: 06-21-2024 Dr. Bridget Swenson MD -Laboratory, [facility] Start: 06-21-2024 End: 06-21-2024 ambulatory Bridget Swenson Facility:[facility] Start: 06-15-2024 End: 06-15-2024 Patient encounter procedure Jessa Retana APRN.[facility] Work Phone: Cerebrovascular Comment on above: Intracranial hemorrh age (HCC) (Primary Dx); Cerebral amyloid angiopathy (CODE); SAH (subarachnoid hemorrhage) (HCC); PAF (paroxysmal atrial fibrillation) (HCC); Primary hypertension Start: 06-15-2024 End: 06-15-2024 ambulatory JESSA RETANA Facility:[facility] Start: 06-14-2024 End: 06-14-2024 Dr. Aleks Marshall MD -Cat Scan, [facility] Work Phone: Start: 06-14-2024 End: 06-14-2024 ambulatory Aleks Marshall Facility:[facility] Start: 06-03-2024 End: 06-03-2024 Dr. Aleks Marshall MD -Cat Scan, [facility] Work Phone: Start: 06-03-2024 End: 06-03-2024 ambulatory [facility] Facility:[facility] Start: 06-02-2024 End: 06-02-2024 Telephone encounter Jessa John WHEELER.[employer]ERSON[employer] SPECIALIST Work Phone: Cerebrovascular Comment on above: Opened In Error Start: 05-31-2024 ambulatory [facility] Faci lity:[facility] Start: 05-31-2024 Dr. Joyce Rousseau [facility] Work Phone: Start: 05-31-2024 End: 05-31-2024 Dr. Aleks Marshall MD -Cardiovascular Serv ices Work Phone: Start: 05-31-2024 End: 05-31-2024 ambulatory [facility] Facility:[facility] Start: 05-30-2024 End: 06-15-2024 Evaluation and management of inpatient [facility] Brett Rolando Facility:[facility] Start: 05-30-2024 End: 06-15-2024 Dr. Aleks Marshall MD -Transitional Care [facility] Start: 05-28-2024 Dr. Joyce Rousseau [facility] Work Phone: Start: 05-27-2024 Dr. Joyce Rousseau [facility] Work Phone: Start: 05-25-2024 Dr. Joyce Rousseau [facility] Work Phone: Start: 05-24-2024 Dr. Joyce Rousseau [facility] Work Phone: Start: 05-21-2024 Dr. Joyce Rousseau [facility] Work Phone: Start: 05-20-2024 Dr. Joyce Rousseau [facility] Work Phone: Start: 05-19-2024 End: 05-19-2024 ambulatory Cari Wong MD, PhD Work Phone: [facility]ovascular Center Comment on above: nsgy DIA-family nsgy DIA Start: 05-19-2024 Dr. Joyce Rousseau [facility] Work Phone: Start: 05-18-2024 Dr. Joyce Rousseau [facility] Work Phone: Start: 05-16-2024 ambulatory RebeccaHillary Rousseau [facility] Start: 05-16-2024 End: 05-30-2024 Evaluation and management of inpatient Joyce Rousseau Facility:[facility] Start: 05-16-2024 End: 05-30-2024 Dr. 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 Tylor Hendrickson DO -Emergency Departme nt Work Phone: Start: 05-11-2024 End: 05-11-2024 Emergency department patient visit Tylor Hendrickson Facility:[facility] Start: 04-14-2024 End: 04-14-2024 Dr. Bridget Swenson MD -Laboratory, [facility] Start: 04-14-2024 End: 04-14-2024 ambulatory Bridget Swenson Facility:[facility] Start: 04-01-2024 ambulatory Vinayak Mendenhall Facility: [facility] Start: 04-01-2024 End: 04-01-2024 Dr. Tylor Fang MD -[facility] Start: 04-01-2024 End: 04-01-2024 ambulatory Vinayak Houstonallison Facility:[facility] Start: 02-11-2024 End: 02-11-2024 ambulatory Tarik Sen MANAGER PHP Facility:[facility] Start: 01-29-2024 End: 01-29-2024 ambulatory Tarik Sen MANAGER PHP [facility] Start: 09-09-2023 Non-patient / Non-visit Dr. Bridget Swenson Work Phone: [facility] Start: 09-09-2023 End: 09-09-[address] Bridget Swenson Work Phone: [facility] Work Phone: Start: 09-09-2023 End: 09-09-[address] Bridget Swenson Work Phone: [facility]-Cardiovascular Services Work Phone: Start: 08-27-2023 End: 08-27-2023 ambulatory [facility] Work Phone: Start: 08-27-2023 End: 08-27-2023 Patient encounter procedure [facility] Work Phone: Start: 08-11-2023 End: 08-11-2023 ambulatory [facility] Work Phone: Start: 08-11-2023 End: 08-11-2023 Patient encounter procedure [facility] Work Phone: Start: 08-08-2023 End: 08-08-2023 ambulatory [facility] Work Phone: Start: 08-08-2023 End: 08-08-2023 [facility] Work Phone: Start: 08-06-2023 End: 08-06-2023 ambulatory [facility] Work Phone: Start: 08-06-2023 End: 08-06-2023 Patient encounter procedure [facility] Work Phone: Start: 06-09-2023 End: 06-09-2023 ambulatory [facility] Work Phone: Start: 06-09-2023 End: 06-09-2023 Patient encounter procedure [facility] Start: 05-12-2023 End: 05-12-2023 Emergency department patient visit Dr. Doyle Swenson Work Phone[facility] Work Phone: Start: 04-08-2023 End: 04-08-[address] Doyle Swenson Work Phone: [facility] Work Phone: Start: 04-08-2023 End: 04-08-[address] Doyle Swenson Work Phone: [facility] Work Phone: Start: 02-25-2023 End: 02-25-[address] Doyle Swenson Work Phone: [facility] Work Phone: Start: 02-25-2023 End: 02-25-[address] Doyle Swenson Work Phone: [facility] Work Phone: Start: 01-28-2023 End: 01-28-[address] Doyle Swenson Work Phone: [facility] Work Phone: Start: 01-16-2023 Non-patient / Non-visit Dr. Doyle Swenson Work Phone: [facility] Start: 01-16-2023 End: 01-16-[address] Doyle Swenson Work Phone: [facility] Work Phone: Start: 01-16-2023 End: 01-16-[address] Doyle Swenson Work Phone: [facility]-Cardiovascular Services Work Phone: Start: 01-14-2023 End: 01-14-[address] Doyle Swenson Work Phone: [facility] Work Phone: Start: 01-14-2023 End: 01-14-[address] Doyle Swenson Work Phone: [facility] Work Phone: Start: 12-18-2022 End: 12-18-2022 ambulatory [facility] Work Phone: Start: 12-18-2022 End: 12-18-2022 Patient encounter procedure [facility] Start: 11-21-2022 End: 11-21-2022 Patient encounter procedure [facility] Work Phone: Start: 11-06-2022 End: 11-06-2022 ambulatory [facility] Work Phone: Start: 11-06-2022 End: 11-06-2022 [facility] Start: 10-02-2022 End: 10-02-2022 ambulatory [facility] Work Phone: Start: 10-02-2022 End: 10-02-2022 Patient encounter procedure [facility] Start: 08-26-2022 End: 08-26-[address] Doyle Swenson Work Phone: [facility] Work Phone: Start: 08-26-2022 End: 08-26-[address] Doyle Swenson Work Phone: [facility] Start: 06-18-2022 End: 06-18-[address] Doyle Swenson Work Phone: [facility]-Outpatient Bone Densitometry Start: 05-20-2022 End: 05-20-[address] Doyle Swenson Work Phone: [facility] Work Phone: Start: 05-20-2022 End: 05-20-[address] Doyle Swenson Work Phone: [facility] Start: 05-20-2022 End: 05-20-2022 Dr. Doyle Swenson Work Phone: [facility] Start: 05-18-2022 End: 05-18-2022 Emergency department patient visit Dr. Doyle Swenson Work Phone: [facility]-Emergency Department Start: 05-18-2022 End: 05-18-2022 Dr. Doyle Swenson Work Phone: [facility]-Emergency Department Start: 05-14-[address] Vinny Swenson Work Phone: [facility] Start: 05-14-2022 Dr. Doyle Swenson Work Phone: [facility] Start: 05-08-2022 End: 05-08-[address] Doyle Swenson Work Phone: [facility] Start: 05-08-2022 End: 05-08-2022 Dr. Doyle Swenson Work Phone: [facility] Start: 04-29-[address] Vinny Swenson Work Phone: [facility] Start: 04-29-2022 Dr. Doyle Swenson Work Phone: [facility] Start: 04-22-2022 End: 04-22-[address] Doyle Swenson Work Phone: [facility] Work Phone: Start: 04-22-2022 End: 04-22-[address] Doyle Swenson Work Phone: [facility] Start: 04-22-2022 End: 04-22-2022 Dr. Doyle Swenson Work Phone: [facility] Start: 04-19-2022 End: 04-19-[address] Doyle Swenson Work Phone: [facility] Start: 04-19-2022 End: 04-19-2022 Dr. Doyle Swenson Work Phone: [facility] Start: 04-18-2022 Non-patient / Non-visit Dr. Doyle Swenson Work Phone: [facility] Start: 04-18-2022 Dr. Doyle Swenson Work Phone: [facility] Start: 04-17-2022 Non-patient / Non-visit Dr. Doyle Swenson Work Phone: [facility] Start: 04-17-2022 Dr. Doyle Swenson Work Phone: [facility] Start: 04-16-2022 Non-patient / Non-visit Dr. Doyle Swenson Work Phone: [facility] Start: 04-16-2022 Dr. Doyle Swenson Work Phone: [facility] Start: 04-15-2022 Non-patient / Non-visit Dr. Doyle Swenson Work Phone: [facility] Start: 04-15-2022 Dr. Doyle Swenson Work Phone: [facility] Start: 04-14-2022 Non-patient / Non-visit Dr. Doyle Swenson Work Phone: [facility] Start: 04-14-2022 Dr. Doyle Swenson Work Phone: [facility] Start: 04-13-2022 Non-patient / Non-visit Dr. Doyle Swenson Work Phone: [facility] Start: 04-13-2022 Dr. Doyle Swenson Work Phone: [facility] Start: 04-12-2022 Non-patient / Non-visit Dr. Doyle Swenson Work Phone: [facility] Start: 04-12-2022 Dr. Doyle Swenson Work Phone: [facility] Start: 04-11-2022 Non-patient / Non-visit Dr. Doyle Swenson Work Phone: [facility] Start: 04-11-2022 Dr. Doyle Swenson Work Phone: [facility] Start: 04-10-2022 Non-patient / Non-visit Dr. Doyle Swenson Work Phone: [facility] Start: 04-10-2022 End: 04-18-2022 Evaluation and management of inpatient Dr. Doyle Swenson Work Phone: [facility]-Medical Surgical 3 Start: 04-10-2022 End: 04-18-[address] Doyle Swenson Work Phone: [facility] Work Phone: Start: 04-10-2022 End: 04-18-2022 Dr. Doyle Swenson Work Phone: [facility]-Medical Surgical 3 Start: 04-08-2022 End: 04-08-[address] Doyle Swenson Work Phone: [facility] Work Phone: Start: 04-08-2022 End: 04-08-[address] Doyle Swenson Work Phone: [facility] Start: 04-08-2022 End: 04-08-2022 Dr. Doyle Swenson Work Phone: [facility] Start: 02-18-2022 Non-patient / Non-visit Dr. Doyle Swenson Work Phone: [facility] Start: 02-18-2022 End: 02-18-[address] Doyle Swenson Work Phone: [facility]-Cardiovascular Services Start: 02-18-2022 End: 02-18-2022 Dr. Doyle Swenson Work Phone: [facility] Start: 02-16-2022 End: 03-18-2022 Evaluation and management of inpatient Dr. Doyle Swenson Work Phone: [facility]-Transitional Care Unit Start: 02-16-2022 End: 03-18-2022 Dr. Doyle Swenson Work Phone: [facility]-Transitional Care Unit Start: 02-15-2022 End: 02-15-[address] Doyle Swenson Work Phone: [facility] Work Phone: Start: 02-15-2022 End: 02-15-[address] Doyle Swenson Work Phone: [facility]-Laboratory, Specimen Start: 02-15-2022 End: 02-15-2022 Dr. Doyle Swenson Work Phone: [facility]-Laboratory, Specimen Start: 02-11-2022 End: 02-14-2022 Evaluation and management of inpatient Dr. Doyle Swenson [facility] Phone[facility] Start: 02-11-2022 End: 02-14-2022 Dr. Doyle Swenson Work Phone: [facility] Start: 02-11-2022 Non-patient / Non-visit Dr. Doyle Swenson Work Phone: [facility] Start: 02-11-2022 Dr. Doyle Swenson Work Phone: [facility] Start: 02-10-2022 Non-patient / Non-visit Dr. Doyle Swenson Work Phone: [facility] Start: 02-10-2022 End: 02-11-2022 Evaluation and management of inpatient Dr. Doyle Swenson Work Phone: [facility] Surgical 3 Start: 02-10-2022 End: 02-11-2022 Dr. Doyle Swenson Work Phone: [facility] Surgical 3 Start: 02-09-2022 Non-patient / Non-visit Dr. Doyle Swenson Work Phone: [facility] Start: 02-09-2022 Dr. Doyle Swenson Work Phone: [facility] Start: 02-09-2022 Evaluation and management of inpatient Dr. Doyle Swenson Work Phone: [facility] Surgical 3 Start: 02-09-[address] Doyle Swenson Work Phone: [facility] Work Phone: Start: 02-04-2022 End: 02-04-[address] Doyle Swenson Work Phone: [facility] Work Phone: Start: 02-04-2022 End: 02-04-[address] Doyle Swenson Work Phone: [facility] Start: 02-04-2022 End: 02-04-2022 Dr. Doyle Swenson Work Phone: [facility] Start: 01-01-2022 End: 01-01-[address] Doyle Swenson Work Phone: [facility] Start: 12-20-2021 End: 12-20-[address] Doyle Swenson Work Phone: [facility] Work Phone: Start: 12-20-2021 End: 12-20-[address] Doyle Swenson Work Phone: [facility] Start: 12-18-2021 End: 12-18-[address] Doyle Swenson Work Phone: [facility] Start: 11-22-2021 End: 11-22-[address] Doyle Swenson Work Phone: [facility] Start: 10-29-2021 End: 10-29-[address] Doyle Swenson Work Phone: [facility] Start: 10-04-2021 End: 10-04-[address] Doyle Swenson Work Phone: [facility] Start: 09-27-2021 End: 09-27-[address] Doyle Swenson Work Phone: [facility] Start: 08-14-2021 End: 08-14-[address] Doyle Swenson Work Phone: [facility] Start: 07-27-2021 End: 07-27-[address] Doyle Swenson Work Phone: [facility] Start: 07-25-2021 Non-patient / Non-visit Dr. Doyle Swenson Work Phone: [facility] Start: 07-24-2021 Non-patient / Non-visit Dr. Doyle Swenson Work Phone: [facility] Start: 07-24-2021 Non-patient / Non-visit Dr. Doyle Swenson Work Phone: [facility] Start: 07-24-2021 End: 07-25-2021 Evaluation and management of inpatient Dr. Doyle Swenson Work Phone: [facility]-Medical Surgical 3 Start: 06-19-2021 End: 06-19-[address] Doyle Swenson Work Phone: [facility] Start: 05-09-2021 End: 05-09-[address] Doyle Swenson [facility] Phone[facility] Start: 05-07-[address] Doyle Swenson Work Phone: [facility] Start: 05-01-2021 End: 05-01-[address] Doyle Swenson Work Phone: [facility] Start: 04-23-[address] Doyle Swenson Work Phone: [facility]-Laboratory, [facility] Procedures Date Procedure Procedure Detail Performing Clinician Start: 11-17-2024 Plain chest X-ray Dr. Bridget Swenson MD Work Phone: Start: 11-17-2024 Blood count smear mcrscp w/mnl difrntl wbc count Dr. Bridget Swenson MD Work Phone: Start: 11-17-[address] Bonita Swenson MD Work Phone: Start: 11-17-2024 Mean corpuscular hemoglobin concentration determination Dr. Bridget Swenson MD Work Phone: Start: 11-17-2024 Nucleated red blood cell count procedure Dr. Bridget Swenson MD Work Phone: Start: 11-17-2024 Platelet mean volume determination Dr. Jing Swenson MD Work Phone: Start: 10-12-2024 Comprehensive metabolic panel Nichole Franco Swi ft DO Work Phone: Start: 10-12-2024 Urinalysis microscopic panel - Urine Qualitative by Automated Nichole Franco Guerra DO Work Phone: Start: 10-12-2024 Urnls dip stick/tablet reagent auto microscopy Nichole Franco Guerra DO Work Phone: Start: 10-12-2024 Radiologic exam chest single view Nichole Franco Guerra DO Work Phone: Start: 10-12-2024 Thyrotropin [Units/volume] in Serum or Plasma Nichole Guerra DO Work Phone: Start: 10-09-[address] Bridget Swenson MD Work Phone: Start: 10-08-[address] Bonita Swenson MD Work Phone: Start: 10-08-2024 Mean corpuscular hemoglobin concentration determination Dr. Bridget Swenson MD Work Phone: Start: 10-08-2024 Platelet mean volume determination Dr. Jing Swenson MD Work Phone: Start: 10-05-[address] Bridget Swenson MD Work Phone: Start: 10-05-2024 Total cholesterol:HDL ratio measurement Dr. Bridget Swenson MD Work Phone: Start: 10-04-2024 Blood count smear mcrscp w/mnl difrntl wbc count Dr. Bridget Swenson MD Work Phone: Start: 10-04-2024 Nucleated red blood cell count procedure Dr. Bridget Swenson MD Work Phone: Start: 10-04-2024 Serum inorganic phosphate measurement Dr. Bridget Swenson MD Work Phone: Start: 10-04-2024 MRI of brain without contrast Dr. Vinny Swenson MD Work Phone: Start: 10-03-2024 Plain x-ray of pelvis and lower extremity Dr. Bridget Swenson MD Work Phone: Start: 10-03-2024 Benzodiazepine measurement, urine Dr. Zack Swenson MD Work Phone: Start: 10-03-2024 Cocaine measurement, urine Dr. Ric Swenson MD Work Phone: Start: 10-03-2024 Methadone measurement, urine Dr. Marcos Swenson MD Work Phone: Start: 10-03-[address] Vinny Swenson MD Work Phone: Start: 10-03-2024 Urine microscopy: red cells Dr. Hermann Swenson MD Work Phone: Start: 10-03-[address] Bridget Swenson MD Work Phone: Start: 10-03-2024 Urnls dip stick/tablet reagent auto microscopy Dr. Bridget Swenson MD Work Phone: Start: 10-03-2024 Blood count smear mcrscp w/mnl difrntl wbc count Dr. Bridget Swenson MD Work Phone: Start: 10-03-[address] Bonita Swenson MD Work Phone: Start: 10-03-2024 Mean corpuscular hemoglobin concentration determination Dr. Bridget Swenson MD Work Phone: Start: 10-03-2024 Nucleated red blood cell count procedure Dr. Bridgte Swenson MD Work Phone: Start: 10-03-2024 Platelet mean volume determination Dr. Jing Swenson MD Work Phone: Start: 10-03-2024 CT of head without contrast Dr. Hermann Swenson MD Work Phone: Start: 10-03-2024 CT cervical spine without contrast Dr. Jing Swenson MD Work Phone: Start: 10-03-2024 CT of chest without contrast Dr. Marcos Swenson MD Work Phone: Start: 10-03-[address] Bridget Swenson MD Work Phone: Start: 10-01-2024 Urine microscopy: red cells Dr. Hermann Swenson MD Work Phone: Start: 10-01-2024 Urnls dip stick/tablet reagent auto microscopy Dr. Bridget Swenson MD Work Phone: Start: 10-01-2024 Blood count smear mcrscp w/mnl difrntl wbc count Dr. Bridget Swenson MD Work Phone: Start: 10-01-[address] Bonita Swenson MD Work Phone: Start: 10-01-2024 Mean corpuscular hemoglobin concentration determination Dr. Bridget Swenson MD Work Phone: Start: 10-01-2024 Nucleated red blood cell count procedure Dr. Bridget Swenson MD Work Phone: Start: 10-01-2024 Platelet mean volume determination Dr. Jing Swenson MD Work Phone: Start: 10-01-2024 Plain chest X-ray Dr. Bridget Swenson MD Work Phone: Start: 10-01-[address] Bridget Swenson MD Work Phone: Start: 09-06-2024 Blood count smear mcrscp w/mnl difrntl wbc count Dr. Bridget Swenson MD Work Phone: Start: 09-06-2024 Mean corpuscular hemoglobin concentration determination Dr. Bridget Swenson MD Work Phone: Start: 09-06-2024 Nucleated red blood cell count procedure Dr. Bridget Swenson MD Work Phone: Start: 09-06-2024 Platelet mean volume determination Dr. Jing Swenson MD Work Phone: Start: 09-06-2024 Vitamin D, 25-hydroxy measurement Dr. Zack Swenson MD Work Phone: Start: 09-03-2024 Blood count smear mcrscp w/mnl difrntl wbc count Dr. Bridget Swenson MD Work Phone: Start: 09-03-[address] Bonita Swenson MD Work Phone: Start: 09-03-2024 Mean corpuscular hemoglobin concentration determination Dr. Bridget Swenson MD Work Phone: Start: 09-03-2024 Nucleated red blood cell count procedure Dr. Bridget Swenson MD Work Phone: Start: 09-03-2024 Platelet mean volume determination Dr. Jing Swenson MD Work Phone: Start: 09-02-2024 Serum inorganic phosphate measurement Dr. Bridget Swenson MD Work Phone: Start: 08-31-2024 Benzodiazepine measurement, urine Dr. Zack Swenson MD Work Phone: Start: 08-31-2024 Cocaine measurement, urine Dr. Ric Swenson MD Work Phone: Start: 08-31-2024 Methadone measurement, urine Dr. Marcos Swenson MD Work Phone: Start: 08-31-[address] Vinny Swenson MD Work Phone: Start: 08-31-2024 Urine microscopy: red cells Dr. Hermann Swenson MD Work Phone: Start: 08-31-[address] Bridget Swenson MD Work Phone: Start: 08-31-2024 Urnls dip stick/tablet reagent auto microscopy Dr. Birdget Swenson MD Work Phone: Start: 08-31-2024 MRI of brain without contrast Dr. Vinny Swenson MD Work Phone: Start: 08-31-2024 Blood count smear mcrscp w/mnl difrntl wbc count Dr. Bridget Swenson MD Work Phone: Start: 08-31-[address] Bonita Swenson MD Work Phone: Start: 08-31-2024 Mean corpuscular hemoglobin concentration determination Dr. Bridget Swenson MD Work Phone: Start: 08-31-2024 Nucleated red blood cell count procedure Dr. Bridget Swenson MD Work Phone: Start: 08-31-2024 Platelet mean volume determination Dr. Jing Swenson MD Work Phone: Start: 08-31-2024 Total cholesterol:HDL ratio measurement Dr. Bridget Swenson MD Work Phone: Start: 08-30-2024 X-ray of knee, one or two views Dr. Zenaida Swenson MD Work Phone: Start: 08-30-2024 Carbon dioxide measurement, partial pressure Dr. Bridget Swenson MD Work Phone: Start: 08-30-2024 Gases blood o2 saturation only direct manuel Dr. Bridget Swenson MD Work Phone: Start: 08-30-2024 Measurement of partial pressure of oxygen in blood Dr. Bridget Swenson MD Work Phone: Start: 08-30-[address] Bridget Swenson MD Work Phone: Start: 08-30-2024 Venous oxygen saturation measurement Dr. Bridget Swenson MD Work Phone: Start: 08-30-2024 Plain x-ray of pelvis and lower extremity Dr. Bridget Swenson MD Work Phone: Start: 08-30-2024 Calculation of international normalized ratio Dr. Bridget Swenson MD Work Phone: Start: 08-30-2024 Urine microscopy: red cells Dr. Hermann Swenson MD Work Phone: Start: 08-30-2024 Urnls dip stick/tablet reagent auto microscopy Dr. Bridget Swenson MD Work Phone: Start: 08-30-2024 CT angiography of head and neck Dr. Zenaida Swenson MD Work Phone: Start: 08-30-2024 Plain chest X-ray Dr. Bridget Swenson MD Work Phone: Start: 08-30-2024 CT of head without contrast Dr. Hermann Swenson MD Work Phone: Start: 07-26-2024 Evaluation of diagnostic study results Dr. Bridget Swenson MD Work Phone: Start: 07-22-2024 Blood count smear mcrscp w/mnl difrntl wbc count Dr. Bridget Swenson MD Work Phone: Start: 07-22-[address] Bonita Swenson MD Work Phone: Start: 07-22-2024 Mean corpuscular hemoglobin concentration determination Dr. Bridget Swenson MD Work Phone: Start: 07-22-2024 Measurement of renal function Dr. Vinny Swenson MD Work Phone: Start: 07-22-2024 Nucleated red blood cell count procedure Dr. Bridget Swenson MD Work Phone: Start: 07-22-2024 Platelet mean volume determination Dr. Jing Swenson MD Work Phone: Start: 07-20-2024 X-ray of chest, PA and lateral views Dr. Bridget Swenson MD Work Phone: Start: 07-17-[address] Bridget Swenson MD Work Phone: Start: 07-17-[address] Bridget Swenson MD Work Phone: Start: 07-15-2024 Measurement of occult blood in stool specimen using immunoassay Dr. Bridget Swenson MD Work Phone: Start: 06-27-2024 Antibody screen JESSA RETANA Comment on above: Order Comment: Specimen Type: BLOOD SPEC IMENOrdering Facility: [facility] Address: [address] [place] [address] Performed By: #### T SCR ####[facility] [id number] [place] [address] [place] Start: 06-26-2024 Plain radiography of pelvis Dr. Hermann Swenson MD Work Phone: Start: 06-26-2024 Plain X-ray of shoulder Dr. Bridget Swenson MD Work Phone: Start: 06-26-2024 End: 06-26-2024 X-ray of foot, three or more views Dr. Jing Swenson MD Work Phone: Start: 06-26-2024 Urine microscopy: red cells Dr. Hermann Swenson MD Work Phone: Start: 06-26-2024 Urnls dip stick/tablet reagent auto microscopy Dr. Bridget Swenson MD Work Phone: Start: 06-26-[address] Bridget Swenson MD Work Phone: Start: 06-26-2024 Blood count smear mcrscp w/mnl difrntl wbc count Dr. Bridget Swenson MD Work Phone: Start: 06-26-2024 BUN/Creatinine ratio Dr. Bridget Swenson MD Work Phone: Start: 06-26-[address] Bonita Swenson MD Work Phone: Start: 06-26-2024 Mean corpuscular hemoglobin concentration determination Dr. Bridget Swenson MD Work Phone: Start: 06-26-2024 Measurement of renal function Dr. Vinny Swenson MD Work Phone: Start: 06-26-2024 Nucleated red blood cell count procedure Dr. Bridget Swenson MD Work Phone: Start: 06-26-2024 Platelet mean volume determination Dr. Jing Swenson MD Work Phone: Start: 06-26-2024 CT cervical spine without contrast Dr. Jing Swenson MD Work Phone: Start: 06-26-2024 CT of chest without contrast Dr. Marcos Swenson MD Work Phone: Start: 06-26-2024 CT of head without contrast Dr. Hermann Swenson MD Work Phone: Start: 06-21-[address] Bridget Swenson MD Work Phone: Start: 06-21-2024 BUN/Creatinine ratio Dr. Bridget Swenson MD Work Phone: Start: 06-21-[address] Bridget Swenson MD Work Phone: Start: 06-21-[address] Bonita Swenson MD Work Phone: Start: 06-21-2024 Mean corpuscular hemoglobin concentration determination Dr. Bridget Swenson MD Work Phone: Start: 06-21-2024 Measurement of renal function Dr. Vinny Swenson MD Work Phone: Start: 06-21-2024 Platelet mean volume determination Dr. Jing Swenson MD Work Phone: Start: 06-14-2024 CT of head without contrast Dr. Hermann Swenson MD Work Phone: Start: 06-14-[address] Bridget Swenson MD Work Phone: Start: 06-14-2024 Blood count smear mcrscp w/mnl difrntl wbc count Dr. Bridget Swenson MD Work Phone: Start: 06-14-2024 BUN/Creatinine ratio Dr. Brdiget Swenson MD Work Phone: Start: 06-14-[address] Bonita Swenson MD Work Phone: Start: 06-14-2024 Mean corpuscular hemoglobin concentration determination Dr. Bridget Swenson MD Work Phone: Start: 06-14-2024 Measurement of renal function Dr. Vinny Swenson MD Work Phone: Start: 06-14-2024 Nucleated red blood cell count procedure Dr. Bridget Swenson MD Work Phone: Start: 06-14-2024 Platelet mean volume determination Dr. Jing Swenson MD Work Phone: Start: 06-07-2024 Assay of phosphorus inorganic Dr. Vinny Swenson MD Work Phone: Start: 05-19-2024 Measurement of occult blood in stool specimen using immunoassay Dr. Bridget Swenson MD Work Phone: Start: 05-17-[address] Bridget Swenson MD Work Phone: Start: 05-16-2024 CT of head without contrast Dr. Hermann Swenson MD Work Phone: Start: 05-11-2024 Antibody screen DUGLAS JULIO Comment on above: Order Comment: Specimen Type: BLOOD SPEC IMENOrdering Facility: [facility] Address: [address] [place] [address] Performed By: #### T SCR ####[facility] BLOOD BANKCLIA [id number] [facility] [id number] [id number] [place] Start: 05-11-2024 CT of head without contrast Dr. Hermann Swenson MD Work Phone: Start: 09-09-2023 CT of lumbar spine Dr. Bridget Swenson Work Phone: Start: 09-09-2023 MRI of lower extremity Dr. Bridget Swenson Work Phone: Start: 08-27-2023 Plain chest X-ray Start: 08-27-2023 Plain x-ray of pelvis and lower extremity Start: 05-12-2023 SARS-CoV-2 & FLU Antigen (Rapid) Dr. Fawn Swenson Work Phone: Start: 05-12-2023 Viral antigen assay Start: 05-12-2023 Plain chest X-ray Dr. Doyle Swenson Work Phone: Start: 04-08-2023 Plain x-ray of pelvis and lower extremity Dr. Doyle Swenson Work Phone: Start: 01-14-2023 CT of abdomen and pelvis without contrast Dr. Doyle Swenson Work Phone: Start: 11-21-2022 X-ray of lumbar spine, two or three views Start: 10-02-2022 Radiologic examination of knee Start: 06-18-2022 Dual energy X-ray absorptiometry Dr. Fawn Swenson Work Phone: Start: 05-18-2022 Plain chest X-ray Dr. Doyle Swenson Work Phone: Start: 04-17-[address] Doyle Swenson Work Phone: Start: 04-17-[address] Doyle Swenson Work Phone: Start: 04-17-2022 Balloon kyphoplasty of fracture of spine Dr. Doyle Swenson Work Phone: Start: 04-10-2022 CT of lumbar spine Dr. Doyle Swenson Work Phone: Start: 04-08-2022 Plain x-ray of pelvis and lower extremity Dr. Doyle Swenson Work Phone: Start: 04-08-2022 X-ray of lumbosacral spine Dr. Ric Swenson Work Phone: Start: 02-04-2022 X-ray of lumbosacral spine Dr. Ric Swenson Work Phone: Start: 10-29-[address] Doyle Swenson Work Phone: Start: 08-14-2021 X-ray of lumbosacral spine Dr. Ric Swenson Work Phone: Start: 07-25-2021 Plain chest X-ray Dr. Doyle Swenson Work Phone: Start: 07-24-[address] Ric Swenson Work Phone: Start: 07-24-2021 Measurement of occult blood in gastric fluid specimen Dr. Doyle Swenson Work Phone: Start: 07-24-2021 Computed tomography of abdomen and pelvis with contrast Dr. Doyle Swenson Work Phone: Start: 06-19-2021 Plain x-ray of pelvis and lower extremity Dr. 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 Yenny Buckley PA-C Work Phone: Start: 09-06-2015 End: 09-06-2015 Follow Up Appt 6 months Yenny Buckley PA-C Work Phone: Start: 05-18-2015 End: 08-08-2015 INR in Platelet poor plasma by Coagulation assay Evin Mora MD Start: 03-10-2015 End: 03-11-2015 Documentation of current medications Evin Mora MD Start: 03-10-2015 End: 03-10-2015 Follow Up Appt 6 months Harjit Zimmerman Start: 03-10-2015 End: 03-10-2015 LUCERO Mora MD Start: 11-28-2014 End: 08-25-2015 INR in Platelet poor plasma by Coagulation assay Evin Mora MD Start: 09-20-2014 End: 09-20-2014 Documentation of current medications Yenny Buckley PA-C Work Phone: Start: 09-20-2014 End: 09-20-2014 Follow Up Appt Other Yenny Buckley PA-C Work Phone: Start: 08-11-2014 End: 08-12-2014 *BMP Yenny Buckley PA-C Work Phone: Start: 08-11-2014 End: 08-25-2015 *CBC with Differential Yenny Buckley PA-C Work Phone: Start: 08-11-2014 End: 08-11-2014 [employer]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 Yenny Buckley PA-C Work Phone: Start: 08-11-2014 End: 08-12-2014 Documentation of current medications Yenny Buckley PA-C Work Phone: Start: 08-11-2014 End: 08-11-2014 Follow Up Appt 1 month Yenny Buckley PA-C Work Phone: Start: 08-11-2014 End: 08-11-2014 Follow Up Appt 6 months Yenny Buckley PA-C Work Phone: Start: 08-11-2014 [...] months Harjit Zimmerman Start: 03-17-2014 End: 03-17-2014 SHEREE Evin Mora MD Start: 11-17-2013 End: 11-17-2013 [employer]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 Doyle Swenson Work Phone: Urine culture Dr. Doyle Swenson Work Phone: Urine culture Dr. Dolye Swenson Work Phone: Viral antigen assay Dr. Zenaida Swenson Work Phone: Viral antigen assay Dr. Zenaida Swenson Work Phone: Viral antigen assay Dr. Zenaida Swenson Work Phone: Viral antigen assay Dr. Zenaida Swenson Work Phone: Plan of Treatment Date Care Activity Detail Author Start: 06-29-2027 Diabetes Screening Diabetes Screening [facility] Start: 06-25-2027 Urine microalbumin profile DTaP,Tdap,Td Vaccine (2 - Td or Tdap) [facility] Start: 05-13-2027 Diabetes Screening Diabetes Screening [facility] Start: 05-11-2027 Diabetes Screening Diabetes Screening [facility] Start: 10-12-2025 Thyroid stimulating hormone measurement TSH Level [facility] Start: 01-10-2025 Influenza vaccination Influenza Vaccine (Season Ended) [facility] Start: 11-17-2024 [facility] Start: 11-17-2024 [facility] Start: 10-09-2024 Patient discharge [facility] Start: 10-06-2024 Admission procedure [facility] Start: 10-05-2024 Speech therapy assessment [facility] Start: 10-04-2024 [facility] Start: 10-04-2024 Application of intermittent pneumatic compression device [facility] Start: 10-04-2024 Following clinical pathway protocol [facility] Start: 10-04-2024 Assessment of risk of venous thromboembolism [facility] Start: 10-04-2024 Documentation procedure [facility] Start: 10-04-2024 Insertion of catheter into peripheral vein [facility] Start: 10-04-2024 Measuring intake and output [facility] Start: 10-04-2024 Providing care according to standard [facility] Start: 10-04-2024 Provision of activity privileges [facility] Start: 10-04-2024 Referral to occupational therapist [facility] Start: 10-04-2024 Referral to service [facility] Start: 10-04-2024 [facility] Start: 10-04-2024 Continuous positive airway pressure ventilation treatment [facility] Start: 10-04-2024 MRI of brain without contrast [facility] Start: 10-04-2024 Verification routine [facility] Start: 10-04-2024 Admission procedure [facility] Start: 10-04-2024 Hospital admission, emergency, from emergency room, medical nature [facility] Start: 10-04-2024 Patient referral to dietitian [facility] Start: 10-03-2024 [facility] Start: 10-03-2024 End: 10-03-2024 [facility] Start: 10-03-2024 Consultation [facility] Start: 10-01-2024 [facility] Start: 10-01-2024 Urine culture [facility] Start: 09-20-2024 End: 09-20-2024 Patient encounter procedure 09/20/2024 8:00 AM EDT Office Visit Neurology [address] [place] [address] Wally Quesada Jr., MD [address] [place] [address] Restless Leg Syndrome Neurology Comment on above: Restless Leg Syndrome Start: 09-03-2024 Patient discharge [facility] Start: 09-02-2024 Application of intermittent pneumatic compression device [facility] Start: 09-02-2024 Speech therapy assessment [facility] Start: 09-01-2024 Referral to occupational therapist [facility] Start: 09-01-2024 Referral to service [facility] Start: 09-01-2024 Following clinical pathway protocol [facility] Start: 09-01-2024 Continuous positive airway pressure ventilation treatment [facility] Start: 09-01-2024 Admission procedure [facility] Start: 09-01-2024 Consultation [facility] Start: 09-01-2024 Patient referral to dietitian [facility] Start: 08-31-2024 Patient discharge [facility] Start: 08-31-2024 Referral to service [facility] Start: 08-30-2024 Dual pressure spontaneous ventilation support [facility] Start: 08-30-2024 Application of intermittent pneumatic compression device [facility] Start: 08-30-2024 Continuous pulse oximetry [facility] Start: 08-30-2024 Following clinical pathway protocol [facility] Start: 08-30-2024 Aspiration precautions [facility] Start: 08-30-2024 Assessment of risk of venous thromboembolism [facility] Start: 08-30-2024 Cardiac monitoring [facility] Start: 08-30-2024 Catheterization of vein [facility] Start: 08-30-2024 Consultation [facility] Start: 08-30-2024 Elevation of head of bed [facility] Start: 08-30-2024 Exercises [facility] Start: 08-30-2024 Insertion of catheter into peripheral vein [facility] Start: 08-30-2024 Measuring intake and output [facility] Start: 08-30-2024 Notification of physician [facility] Start: 08-30-2024 Oxygen therapy [facility] Start: 08-30-2024 Patient referral to dietitian [facility] Start: 08-30-2024 Providing care according to standard [facility] Start: 08-30-2024 Provision of activity privileges [facility] Start: 08-30-2024 Referral to occupational therapist [facility] Start: 08-30-2024 Referral to service [facility] Start: 08-30-2024 Speech therapy assessment [facility] Start: 08-30-2024 Telemedicine consultation with patient [facility] Start: 08-30-2024 Tobacco use cessation education [facility] Start: 08-30-2024 Vital signs measurements [facility] Start: 08-30-2024 Admission procedure [facility] Start: 08-30-2024 End: 08-30-2024 [facility] Start: 08-30-2024 Hospital admission, emergency, from emergency room, medical nature [facility] Start: 08-30-2024 [facility] Start: 08-30-2024 Oxygen therapy [facility] Start: 08-30-2024 [facility] Start: 08-30-2024 Patient referral to dietitian [facility] Start: 08-16-2024 End: 08-16-2024 Patient encounter procedure 08/16/2024 11:00 AM EDT Office Visit Cerebrovascular [address] [place] [address] Jessa Retana APRN.PERSONAL INJURY SPECIALIST [address] [place] [address] 3 month follow up Cerebrovascular Comment on above: 3 month follow up Start: 07-27-2024 End: 07-27-2024 Patient encounter procedure 07/27/2024 11:00 AM EDT Office Visit Cardiology [address] [place] [address] Toyin Del Castillo MD [address] [place] [address] Evaluation for watchmann device with hx of pAF Cardiology Comment on above: Evaluation for watchmann device with hx of pAF Start: 07-27-2024 End: 07-27-2024 ambulatory 07/27/2024 10:30 AM EDT Results Only Cardiology [address] [place] [address] Evaluation for watchmann device with hx of pAF Cardiology Comment on above: Evaluation for watchmann device with hx of pAF Start: 07-26-2024 Development of care plan [facility] Start: 07-26-2024 Application of elastic bandage [facility] Start: 07-26-2024 Patient discharge [facility] Start: 07-20-2024 Referral to service [facility] Start: 07-20-2024 [facility] Start: 07-09-2024 [facility] Start: 07-06-2024 Palliative care [facility] Start: 07-05-2024 Application of ice collar, cap or bag [facility] Start: 07-01-2024 Speech therapy assessment [facility] Start: 07-01-2024 Development of care plan [facility] Start: 07-01-2024 Developing a treatment plan [facility] Start: 07-01-2024 Application of intermittent pneumatic compression device [facility] Start: 07-01-2024 Provision of activity privileges [facility] Start: 07-01-2024 End: 07-01-2024 [facility] Start: 06-30-2024 Admission procedure [facility] Start: 06-30-2024 Measuring intake and output [facility] Start: 06-30-2024 Patient referral to dietitian [facility] Start: 06-30-2024 Referral to occupational therapist [facility] Start: 06-30-2024 Referral to service [facility] Start: 06-30-2024 Vital signs measurements [facility] Start: 06-30-2024 [facility] Start: 06-26-2024 End: 06-26-2024 [facility] Start: 06-26-2024 End: 06-26-2024 [facility] Start: 06-15-2024 End: 06-15-2024 Patient encounter procedure 06/15/2024 11:00 AM EST Office Visit Cerebrovascular [address] [place] [address] Jessa Retana APRN.PERSONAL INJURY SPECIALIST [address] [place] [address] 30 day hospital discharge SDH/for stroke and nsgy f/up-per Tatiana Cerebrovascular Comment on above: 30 day hospital discharge SDH/for stroke and nsgy f/up-per Tatiana Start: 06-15-2024 Patient discharge [facility] Start: 06-14-2024 End: 06-14-2024 Patient encounter procedure Cat Scan Comment on above: SAH (subarachnoid hemorrhage) (HCC) [I60 .9] 30 day hospital disc harge f/u per tanvi from hany bonilla 05/14/24 Start: 06-14-2024 Development of care plan [facility] Start: 06-13-2024 End: 06-12-2025 CT Head WO contrast CT BRAIN WO [facility] Radiology Routine SAH (subarachnoid hemorrhage) (HCC) Expected: 06/13/2024, Expires: 06/12/2025 [facility] Work Phone: Comment on above: Expected: 06/13/2024, Expires: Start: 06-08-2024 Referral to service [facility] Start: 06-04-2024 [facility] Start: 06-02-2024 [facility] Start: 06-02-2024 [facility] Start: 06-01-2024 Application of elastic bandage [facility] Start: 05-31-2024 Development of care plan [facility] Start: 05-31-2024 Developing a treatment plan [facility] Start: 05-30-2024 Admission procedure [facility] Start: 05-30-2024 Introduction of urinary catheter [facility] Start: 05-30-2024 Measuring intake and output [facility] Start: 05-30-2024 Patient referral to dietitian [facility] Start: 05-30-2024 Referral to occupational therapist [facility] Start: 05-30-2024 Referral to service [facility] Start: 05-30-2024 Vital signs measurements [facility] Start: 05-30-2024 End: 05-30-2024 [facility] Start: 05-29-2024 Removal of urinary catheter [facility] Start: 05-28-2024 Patient discharge [facility] Start: 05-28-2024 Removal of urinary catheter [facility] Start: 05-25-2024 [facility] Start: 05-22-2024 Oxygen therapy [facility] Start: 05-22-2024 [facility] Start: 05-21-2024 [facility] Start: 05-19-2024 [facility] Start: 05-18-2024 Following clinical pathway protocol [facility] Start: 05-18-2024 Insertion of catheter into peripheral vein [facility] Start: 05-18-2024 [facility] Start: 05-16-2024 Application of intermittent pneumatic compression device [facility] Start: 05-16-2024 Recommendation to continue with treatment [facility] Start: 05-16-2024 Referral to service [facility] Start: 05-16-2024 Urinary bladder training [facility] Start: 05-16-2024 Admission procedure [facility] Start: 05-16-2024 Measuring intake and output [facility] Start: 05-16-2024 Patient referral to dietitian [facility] Start: 05-16-2024 Referral to occupational therapist [facility] Start: 05-16-2024 Vital signs measurements [facility] Start: 05-16-2024 [facility] Start: 05-16-2024 Speech therapy assessment [facility] Start: 05-14-2024 End: 05-14-2024 Patient encounter procedure 05/14/2024 4:00 PM EST Office Visit Cardiology [address] [place] [address] Essential (primary) hypertension (Primary Dx) Cardiology Comment on above: Essential (primary) hypertension (Primar y Dx) Start: 05-12-2024 Advance Directive Discussion Advance Directive Discussion [facility] Start: 05-11-2024 [facility] Start: 05-11-2024 Aspiration precautions [facility] Start: 01-11-2024 Covid-19 Vaccine ( season) Covid-19 Vaccine ( season) [facility] Start: 01-11-2024 Covid-19 Vaccine ( season) Covid-19 Vaccine ( season) [facility] Start: 01-11-2024 Influenza vaccination Influenza Vaccine (#1) [facility] Start: 05-12-2023 Advance Directive Discussion Advance Directive Discussion [facility] Start: 05-12-2023 [facility] Start: 04-18-2022 Patient discharge [facility] Start: 04-17-2022 [facility] Start: 04-15-2022 Incentive spirometry [facility] Start: 04-13-2022 Prothrombin time [facility] Work Phone: Start: 04-12-2022 Prothrombin time [facility] Work Phone: Start: 04-11-2022 Consultation for pain [facility] Start: 04-10-2022 Assessment of risk of venous thromboembolism [facility] Start: 04-10-2022 Consultation [facility] Work Phone: Start: 04-10-2022 Insertion of catheter into peripheral vein [facility] Start: 04-10-2022 Oxygen therapy [facility] Work Phone: Start: 04-10-2022 Providing care according to standard [facility] Start: 04-10-2022 Provision of activity privileges [facility] Start: 04-10-2022 Referral to occupational therapist [facility] Start: 04-10-2022 Referral to service [facility] Start: 04-10-2022 [facility] Start: 04-10-2022 Following clinical pathway protocol [facility] Start: 04-10-2022 Verification routine [facility] Work Phone: Start: 04-10-2022 Admission procedure [facility] Start: 04-10-2022 ANES NEUROMD/NTRVRT BR/SAC [facility] Start: 04-10-2022 Perq vert agmntj cavity crtj uni/bi cannulj [facility] Start: 03-24-2022 Blood chemistry [facility] Work Phone: Start: 03-21-2022 Prothrombin time [facility] Work Phone: Start: 03-18-2022 Prothrombin time [facility] Work Phone: Start: 03-18-2022 Patient discharge [facility] Start: 03-17-2022 Development of care plan [facility] Start: 03-17-2022 Blood chemistry [facility] Work Phone: Start: 03-15-2022 Developing a treatment plan [facility] Start: 03-14-2022 Prothrombin time [facility] Work Phone: Start: 03-13-2022 [facility] Start: 03-13-2022 Referral to service [facility] Start: 03-12-2022 [facility] Start: 03-12-2022 Blood chemistry [facility] Work Phone: Start: 03-11-2022 Prothrombin time [facility] Work Phone: Start: 03-10-2022 Blood chemistry [facility] Work Phone: Start: 03-07-2022 Prothrombin time [facility] Work Phone: Start: 03-05-2022 Blood chemistry [facility] Work Phone: Start: 03-04-2022 Prothrombin time [facility] Work Phone: Start: 03-03-2022 Blood chemistry [facility] [facility] Work Phone: Start: 02-28-2022 Prothrombin time [facility] Work Phone: Start: 02-27-2022 Speech therapy assessment [facility] Start: 02-26-2022 Blood chemistry [facility] Work Phone: Start: 02-25-2022 Prothrombin time [facility] Work Phone: Start: 02-24-2022 Blood chemistry [facility] Work Phone: Start: 02-21-2022 Prothrombin time [facility] Work Phone: Start: 02-19-2022 Verification routine [facility] Work Phone: Start: 02-19-2022 Blood chemistry [facility] Work Phone: Start: 02-18-2022 Prothrombin time [facility] Work Phone: Start: 02-17-2022 Developing a treatment plan [facility] Start: 02-17-2022 Development of care plan [facility] Start: 02-16-2022 End: 02-17-2022 [facility] Start: 02-16-2022 Wound care [facility] Work Phone: Start: 02-16-2022 Admission procedure [facility] Start: 02-16-2022 Measuring intake and output [facility] Start: 02-16-2022 Patient referral to dietitian [facility] Start: 02-16-2022 Referral to occupational therapist [facility] Start: 02-16-2022 Referral to service [facility] Start: 02-16-2022 Vital signs measurements [facility] Start: 02-14-2022 Patient discharge [facility] Start: 02-13-2022 Developing a treatment plan [facility] Start: 02-13-2022 [facility] Work Phone: Start: 02-12-2022 Development of care plan [facility] Start: 02-12-2022 Developing a treatment plan [facility] Start: 02-11-2022 Patient referral to dietitian [facility] Start: 02-11-2022 Following clinical pathway protocol [facility] Start: 02-11-2022 Admission procedure [facility] Start: 02-11-2022 Measuring intake and output [facility] Start: 02-11-2022 Patient referral to dietitian [facility] Start: 02-11-2022 Referral to occupational therapist [facility] Start: 02-11-2022 Referral to service [facility] Start: 02-11-2022 Vital signs measurements [facility] Start: 02-11-2022 End: 02-11-2022 [facility] Start: 02-11-2022 Patient discharge [facility] Start: 02-11-2022 Continuous positive airway pressure ventilation treatment [facility] Start: 02-10-2022 Admission procedure [facility] Start: 02-09-2022 Following clinical pathway protocol [facility] Start: 02-09-2022 Assessment of risk of venous thromboembolism [facility] Start: 02-09-2022 Insertion of catheter into peripheral vein [facility] Start: 02-09-2022 Oxygen therapy [facility] Start: 02-09-2022 Providing care according to standard [facility] Start: 02-09-2022 Provision of activity privileges [facility] Start: 02-09-2022 Referral to occupational therapist [facility] Start: 02-09-2022 Referral to service [facility] Start: 02-09-2022 [facility] Start: 02-09-2022 Verification routine [facility] Work Phone: Start: 02-09-2022 Admission procedure [facility] Start: 02-09-2022 [facility] Work Phone: Start: 07-25-2021 Patient discharge [facility] Work Phone: Start: 07-25-2021 Oxygen therapy [facility] Work Phone: Start: 07-24-2021 End: 07-25-2021 [facility] Work Phone: Start: 07-24-2021 Ambulation without limitation [facility] Work Phone: Start: 07-24-2021 Assessment of risk of venous thromboembolism [facility] Work Phone: Start: 07-24-2021 Insertion of catheter into peripheral vein [facility] Work Phone: Start: 07-24-2021 Providing care according to standard [facility] Work Phone: Start: 07-24-2021 Referral to gastroenterology service [facility] Work Phone: Start: 07-24-2021 Admission procedure [facility] Work Phone: Start: 07-24-2021 Following clinical pathway protocol [facility] Work Phone: Start: 07-24-2021 [facility] Work Phone: Start: 04-10-2017 End: 04-10-2017 Appointment Appointment [facility] Work Phone: Start: 12-26-2016 End: 12-26-2016 Ecg routine ecg w/least 12 lds w/i&r EKG (In office) [facility] Work Phone: Start: 09-27-2016 End: 12-26-2016 Follow Up Appt 6 months Follow Up Appt 6 months [facility] Work Phone: Start: 09-27-2016 End: 12-26-2016 MMM MMM [facility] Work Phone: Start: 06-28-2016 End: 08-26-2016 INR Coag RelTime (PPP) *PT/INR - Standing Order [facility] Work Phone: Start: 05-15-2016 End: 05-28-2016 INR Coag RelTime (PPP) *PT/INR - Standing Order [facility] Work Phone: Start: 04-04-2016 Screening for osteoporosis Bone Density Screening [facility] Start: 03-14-2016 End: 03-14-2016 *BMP *BMP [facility] Work Phone: Start: 03-14-2016 End: 03-14-2016 *CBC with Differential *CBC with Differential [facility] Work Phone: Start: 03-14-2016 End: 03-14-2016 Follow Up Appt 6 months Follow Up Appt 6 months [facility] Work Phone: Start: 03-14-2016 End: 03-14-2016 MMM MMM [facility] Work Phone: Start: 03-14-2016 End: 03-14-2016 Thyroid stimulating hormone (TSH) *TSH [facility] Work Phone: Start: 09-06-2015 End: 09-06-2015 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 [facility] Work Phone: Start: 09-06-2015 End: 09-06-2015 Follow Up Appt 6 months Follow Up Appt 6 months [facility] Work Phone: Start: 05-18-2015 End: 08-08-2015 INR Coag RelTime (PPP) *PT/INR - Standing Order [facility] Work Phone: Start: 03-10-2015 End: 03-10-2015 Follow Up Appt 6 months Follow Up Appt 6 months [facility] Work Phone: Start: 03-10-2015 End: 03-10-2015 MMM MMM [facility] Work Phone: Start: 11-28-2014 End: 08-25-2015 INR Coag RelTime (PPP) *PT/INR - Standing Order [facility] Work Phone: Start: 09-20-2014 End: 09-20-2014 Follow Up Appt Other Follow Up Appt Other [facility] Work Phone: Start: 08-11-2014 End: 08-12-2014 *BMP *BMP [facility] Work Phone: Start: 08-11-2014 End: 08-25-2015 *CBC with Differential *CBC with Differential [facility] Work Phone: Start: 08-11-2014 End: 08-12-2014 BNP *Brain Natriuretic Peptide BNP [facility] Work Phone: Start: 08-11-2014 End: 08-11-2014 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 [facility] Work Phone: Start: 08-11-2014 End: 08-11-2014 Follow Up Appt 1 month Follow Up Appt 1 month [facility] Work Phone: Start: 08-11-2014 End: 08-11-2014 Follow Up Appt 6 months Follow Up Appt 6 months [facility] Work Phone: Start: 08-11-2014 End: 08-12-2014 Magnesium *Magnesium [facility] Work Phone: Start: 08-11-2014 End: 08-11-2014 MMM MMM [facility] Work Phone: Start: 08-11-2014 End: 08-12-2014 Thyroid stimulating hormone (TSH) *TSH [facility] Work Phone: Start: 08-11-2014 End: 08-12-2014 Thyroxine (T4) *T4 (Total) [facility] Work Phone: Start: 07-26-2014 End: 08-11-2014 INR Coag RelTime (PPP) *PT/INR - Standing Order [facility] Work Phone: Start: 06-03-2014 End: 07-26-2014 INR Coag RelTime (PPP) *PT/INR - Standing Order [facility] Work Phone: Start: 03-17-2014 End: 03-17-2014 Follow Up Appt 6 months Follow Up Appt 6 months [facility] Work Phone: Start: 03-17-2014 End: 03-17-2014 MMM MMM [facility] Work Phone: Start: 11-17-2013 End: 11-17-2013 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 [facility] Work Phone: Start: 11-17-2013 End: 11-17-2013 Follow Up Appt 4 months Follow Up Appt 4 months [facility] Work Phone: Start: 11-17-2013 End: 11-23-2013 INR Coag RelTime (PPP) *PT/INR - Standing Order [facility] Work Phone: Start: 08-18-2013 End: 08-18-2013 24 hour holter monitor 24 hour holter monitor [employer] Work Phone: Start: 08-18-2013 End: 08-18-2013 Follow Up Appt 3 months Follow Up Appt 3 months [facility] Work Phone: Start: 08-18-2013 End: 08-18-2013 MMM MMM [facility] Work Phone: Start: 06-10-2013 DTaP/Tdap/Td Vaccines (1 - Tdap) DTaP/Tdap/Td Vaccines (1 - Tdap) [facility] Start: 06-10-2013 Urine microalbumin profile DTaP,Tdap,Td Vaccine (1 - Tdap) [facility] Start: 2011 RSV High Risk: (Elderly (60+) or Population) (1 - 1-dose 75+ series) RSV High Risk: (Elderly (60+) or Population) (1 - 1-dose 75+ series) [facility] Start: 2011 RSV Vaccine (1 - 1-dose 75+ series) RSV Vaccine (1 - 1-dose 75+ series) [facility] Start: 02-09-2006 Pneumococcal vaccination Pneumococcal Vaccine (2 of 2 - PCV) [facility] Start: 02-09-2006 Pneumococcal Vaccine: 50+ (2 of 2 - PCV) Pneumococcal Vaccine: 50+ (2 of 2 - PCV) [facility] Start: 1986 Shingrix Vaccine (1 of 2) Shingrix Vaccine (1 of 2) [facility] Start: 1986 Zoster Vaccines (1 of 2) Zoster Vaccines (1 of 2) [facility] Start: 1954 Anxiety Screening Anxiety Screening [facility] Start: 1954 Depression Screening Depression Screening [facility] Start: 1954 Diabetes mellitus screening Diabetes Screening [facility] Start: 1936 Lipid panel Lipid Panel [facility] Start: 1936 Medicare Annual Wellness Visit Medicare Annual Wellness Visit (AWV) [facility] Start: 1936 Screening for osteoporosis Bone Density Scan [facility] End: 10-12-2024 Bacteria identified in Urine by Culture [facility] Work Phone: Comment on above: Once (Lab) for 1 Occurrences starting until 10/12/2024 Basic metabolic 2008 panel with ionized calcium - Serum or Plasma [facility] End: 10-13-2024 ECG 12 Lead ECG 12 Lead ECG STAT Once for 1 Occurrences starting 10/13/2024 until 10/13/2024 [facility] Work Phone: Comment on above: Once for 1 Occurrences starting 10/14/19 until 10/13/2024 End: 05-14-2025 ECG COMPLETE ECG COMPLETE ECG Routine PAF (paroxysmal atrial fibrillation) (HCC) 1 Occurrences starting 05/14/2024 until 05/14/2025 [facility] Work Phone: Comment on above: 1 Occurrences starting 05/14/2024 until 05/14/2025 End: 10-12-2024 Extra Tubes [facility] Work Phone: Comment on above: Once (Lab) for 1 Occurrences starting until 10/12/2024 End: 10-12-2024 Extra Urine Bah Tube Extra Urine Bah Tube Lab Timed Once for 1 Occurrences starting 10/12/2024 until 10/12/2024 [facility] Work Phone: Comment on above: Once for 1 Occurrences starting 10/13/19 until 10/12/2024 INR in Blood by Coagulation assay [facility] Work Phone: End: 10-12-2024 [facility] Work Phone: Comment on above: Once for 1 Occurrences starting 10/13/19 until 10/12/2024, 1 completed Natriuretic peptide. B prohormone N-Terminal [Mass/volume] in Serum or Plasma [facility] Patient [facility] Work Phone: Patient referral [facility] Work Phone: Prothrombin time [facility] Work Phone: Troponin T.cardiac [Mass/volume] in Serum or Plasma by High sensitivity method [facility] End: 10-12-2024 Urinalysis complete W Reflex Culture panel - Urine [facility] Work Phone: Comment on above: Once (Lab) for 1 Occurrences starting until 10/12/2024 Urine culture Urine Culture [facility] Work Phone: Urine culture [facility] Immunizations Immunization Date Immunization Notes Care Provider [facility] 09-09-2024 pneumococcal polysaccharide vaccine, [address] Bridget Swenson MD Work Phone: [facility] 02-03-2024 influenza, seasonal, injectable, preservative free Dr. Bridget Swenson MD Work Phone: [facility] 02-19-2022 Xiang Pugh Bivale nt Booster Dr. Doyle Swenson Work Phone: [facility] 02-08-2022 influenza, injectabl e, quadrivalent, preservative free Dr. Doyle Swenson Work Phone: [facility] 02-08-2022 influenza, seasonal, injectable Dr. Doyle Swenson Work Phone: [facility] 08-11-2021 Xiang (Moderna) Dr. Hermann Swenson Work Phone: [facility] 03-16-2021 Xiang (Moderna) Dr. Hermann Swenson Work Phone: [facility] 02-13-2021 influenza, injectabl e, quadrivalent, preservative free Dr. Doyle Swenson Work Phone: [facility] 02-13-2021 influenza, seasonal, injectable Dr. Doyle Swenson Work Phone: [facility] 07-07-2020 Covid (Moderna) Dr. Hermann Swenson Work Phone: [facility] 06-09-2020 Covid (Moderna) Dr. Hermann Swenson Work Phone: [facility] 02-03-2018 influenza, injectabl e, quadrivalent, preservative free Dr. Doyle Swenson Work Phone: [facility] 02-03-2018 influenza, seasonal, injectable Dr. Doyle Swenson Work Phone: [facility] 06-25-2017 tetanus toxoid, redu pat diphtheria toxoid, and acellular pertussis vaccine, adsorbed Dr. Doyle Swenson Work Phone: [facility] 01-15-2017 influenza, injectabl e, quadrivalent, preservative free Dr. Doyle Swenson Work Phone: [facility] 01-15-2017 influenza, seasonal, injectable Dr. Doyle Swenson Work Phone: [facility] 01-30-2016 influenza, injectabl e, quadrivalent, preservative free Dr. Doyle Swenson Work Phone: [facility] 01-30-2016 influenza, seasonal, injectable Dr. Doyle Swenson Work Phone: [facility] 03-30-2015 pneumococcal conjuga te vaccine, [address] Doyle Swenson Work Phone: [facility] 03-06-2015 influenza, injectabl e, quadrivalent, preservative free Dr. Doyle Swenson Work Phone: [facility] 03-06-2015 influenza, seasonal, injectable Dr. Doyle Swenson Work Phone: [facility] 03-01-2015 influenza, injectabl e, quadrivalent, preservative free Dr. Doyle Swenson Work Phone: [facility] 03-01-2015 influenza, seasonal, injectable Dr. Doyle Swenson Work Phone: [facility] 01-12-2014 influenza, injectabl e, quadrivalent, preservative free Dr. Doyle Swenson Work Phone: [facility] 01-12-2014 influenza, seasonal, injectable Dr. Doyle Swenson Work Phone: [facility] 01-12-2014 influenza virus vaccine, unspecified formulation Norma Andrysek WELCOME HOSTESS.[facility] Work Phone: [facility] 06-09-2013 tetanus and diphther ia toxoids, adsorbed, preservative free, for adult use (2 Lf of tetanus toxoid and 2 Lf of diphtheria toxoid) Norma Andrysek WELCOME HOSTESS.PERSONAL INJURY SPECIALIST Work Phone: [facility] 02-13-2013 influenza virus vaccine, unspecified formulation Norma Andrysek WELCOME HOSTESS.[facility] Work Phone: [facility] 02-08-2012 influenza virus vaccine, unspecified formulation Norma Andrysek WELCOME HOSTESS.PERSONAL INJURY SPECIALIST Work Phone: [facility] 02-28-2011 influenza virus vaccine, unspecified formulation Norma Andrysek WELCOME HOSTESS.PERSONAL INJURY SPECIALIST Work Phone: [facility] 02-26-2010 influenza virus vaccine, unspecified formulation Norma Andrysek WELCOME HOSTESS.PERSONAL INJURY SPECIALIST Work Phone: [facility] 03-18-2008 influenza virus vaccine, unspecified formulation Norma Andrysek WELCOME HOSTESS.PERSONAL INJURY SPECIALIST Work Phone: [facility] Work Phone: 03-11-2007 influenza virus vaccine, unspecified formulation Norma Andrysek WELCOME HOSTESS.PERSONAL INJURY SPECIALIST Work Phone: [facility] Work Phone: 02-26-2005 influenza virus vaccine, unspecified formulation Norma Moon APRN.[facility] Work Phone: [facility] 02-09-2005 pneumococcal polysaccharide vaccine, 23 valent Norma Moon APRN.[facility] Work Phone: [facility] 02-22-2004 influenza virus vaccine, unspecified formulation Cari Wong MD, PhD Work Phone: [facility] 05-12-2003 tetanus and diphther ia toxoids, adsorbed, preservative free, for adult use (2 Lf of tetanus toxoid and 2 Lf of diphtheria toxoid) Norma Moon APRN.[facility] Work Phone: [facility] Payers Date Payer Category Payer Self-pay [id number] 2018 [facility] DICARE SUPPLEMENT [id number] 2018 Medicare supplementa l policy (as second payer) [employer] MEDICARE SELECT SUPPLEMENT [id number] 2012 Unknown [id number] 2004 Unknown [id number] 2004 Unknown [id number] 2001 Medicare [id number] [id number] [id number] 2001 Medicare [id number] 2001 Medicare [id number] 1936 Unknown [id number] 2.16.840.1.956111.3.57 9.2.1243 Unknown [id number] 2.16.840.1.822344.3.57 9.2.462 Unknown [id number] 2.16.840.1.086728.3.57 9.2.462 Unknown [id number] 2.16.840.1.315687.3.57 9.2.462 Unknown [id number] 2.16.840.1.669471.3.57 9.2.462 Unknown [id number] 2.16.840.1.238432.3.57 9.2.462 Unknown [id number] 2.16.840.1.768578.3.57 9.2.462 Unknown [id number] 2.16.840.1.914091.3.57 9.2.462 Unknown [id number] 2.16.840.1.484262.3.57 9.2.462 Unknown [id number] 2.16.840.1.266046.3.57 9.2.462 Unknown [id number] 2.16.840.1.665253.3.57 9.2.462 Unknown [id number] 2.16.840.1.527029.3.57 9.2.462 Unknown [id number] 2.16.840.1.159607.3.57 9.2.462 Unknown [id number] 2.16.840.1.385441.3.57 9.2.462 Unknown [id number] 2.16.840.1.444578.3.57 9.2.462 Unknown [id number] 2.16.840.1.712031.3.57 9.2.462 Unknown [id number] 2.16.840.1.114794.3.57 9.2.462 Unknown [id number] 2.16.840.1.749768.3.57 9.2.462 Unknown [id number] 2.16.840.1.894301.3.57 9.2.462 Unknown [id number] 2.840.1.882073.3.57 9.2.462 Unknown [id number] 2.840.1.937640.3.57 9.2.462 Unknown [id number] 2.16.840.1.883629.3.57 9.2.462 Unknown [id number] 2.16.840.1.566922.3.57 9.2.462 Unknown [id number] 2.16840.1.910495.3.57 9.2.462 Unknown [id number] 2.840.1.819340.3.57 9.2.462 Unknown [id number] 2.16840.1.352263.3.57 9.2.462 Unknown [id number] 2.16.840.1.516857.3.57 9.2.462 Unknown [id number] 2.16.840.1.515592.3.57 9.2.462 Unknown [id number] 2.16.840.1.411658.3.57 9.2.462 Unknown [id number] 2.16840.1.738151.3.57 9.2.462 Unknown [id number] 2.16.840.1.413683.3.57 9.2.462 Unknown [id number] 2.16.840.1.227324.3.57 9.2.462 Unknown [id number] 2.16.840.1.343959.3.57 9.2.462 Unknown [id number] 2.16.840.1.844960.3.57 9.2.462 Unknown [id number] 2.16.840.1.899201.3.57 9.2.462 Unknown [id number] 2.16.840.1.248938.3.57 9.2.462 Unknown [id number] 2.16.840.1.254994.3.57 9.2.462 Unknown [id number] 2.16.840.1.953995.3.57 9.2.462 Unknown [id number] 2.16840.1.582615.3.57 9.2.462 Unknown [id number] 2.16.840.1.033339.3.57 9.2.462 Unknown [id number] 2.16.840.1.591278.3.57 9.2.462 Unknown [id number] 2.16.840.1.608335.3.57 9.2.462 Unknown [id number] 2.16.840.1.890910.3.57 9.2.462 Unknown [id number] 2.16.840.1.522956.3.57 9.2.462 Unknown [id number] 2.16.840.1.082023.3.57 9.2.462 Unknown [id number] 2.16.840.1.212597.3.57 9.2.462 Unknown [id number] 2.16.840.1.444852.3.57 9.2.462 Unknown [id number] 2.16.840.1.119858.3.57 9.2.462 Unknown [id number] 2.16.840.1.174823.3.57 9.2.462 Unknown [id number] 2.16.840.1.643152.3.57 9.2.462 Unknown [id number] 2.16.840.1.553156.3.57 9.2.462 Unknown [id number] 2.16.840.1.423011.3.57 9.2.462 Social History Date Type Detail Facility [facility] Work Phone: Start: 07-24-2021 End: 05-12-2023 Tobacco smoking status DEIS Unknown if ever smoked [facility] Start: 03-28-2019 None [facility] Start: 03-28-2019 With Family [facility] Start: 1935 Sex Assigned At Female W [facility] Start: 10-17-2010 End: 11-17-2024 Tobacco smoking status NHIS Never smoked tobacco [facility] Start: 10-17-2010 Tobacco use and exposure Smokeless tobacco non-user [facility] Start: 12-26-2021 End: 05-14-2024 Alcoholic beverage intake Current non-drinker of alcohol (finding) [facility] Start: 05-14-2024 End: 06-27-2024 History of Social function [facility] Start: 05-14-2024 End: 06-27-2024 Tobacco use panel [facility] Subtotal = 3 or greater suggests DEPRESSION 0 [facility] Start: 1935 Sex assigned at Not on file C [facility] Has the [employer], gas, oil, or water [employer] threatened to shut off services in your home in past 12Mo No [facility] (I/We) worried whether (my/our) food would run out before (I/we) got money to buy more. Never true [facility] Start: 07-26-2024 End: 08-30-2024 Sex Female (finding) [facility] Start: 08-31-2024 Non-smoker [facility] Start: 10-02-2024 End: 10-13-2024 Exposure to SARS-CoV-2 (event) Unable to assess [facility] Work Phone: NEGATED: Highlighted row [facility] Medical Equipment Procedure Code Equipment Code Equipment Origin al Text Equipment Identifier Dates Kyphoplasty KAROLINA KYPHO AUTOPLEX FDA Start: 04-17-2022 Kyphoplasty KAROLINA KYPHO AUTOPLEX FDA Start: 04-17-2022 Kyphoplasty KAROLINA KYPHO AUTOPLEX FDA Start: 04-17-2022 Kyphoplasty FDA Start: 04-17-2022 Kyphoplasty KAROLINA KYPHO AUTOPLEX FDA Start: 04-17-2022 Kyphoplasty KAROLINA KYPHO AUTOPLEX FDA Start: 04-17-2022 Kyphoplasty KAROLINA KYPHO AUTOPLEX FDA Start: 04-17-2022 Kyphoplasty KAROLINA KYPHO AUTOPLEX FDA Start: 04-17-2022 Kyphoplasty KAROLINA KYPHO AUTOPLEX FDA Start: 04-17-2022 Kyphoplasty KAROLINA KYPHO AUTOPLEX FDA Start: 04-17-2022 Kyphoplasty KAROLINA KYPHO AUTOPLEX FDA Start: 04-17-2022 Kyphoplasty KAROLINA KYPHO AUTOPLEX FDA Start: 04-17-2022 Kyphoplasty KAROLINA KYPHO AUTOPLEX FDA Start: 04-17-2022 Kyphoplasty KAROLINA KYPHO AUTOPLEX FDA Start: 04-17-2022 Kyphoplasty KAROLINA KYPHO AUTOPLEX FDA Start: 04-17-2022 Kyphoplasty KAROLINA KYPHO AUTOPLEX FDA Start: 04-17-2022 Kyphoplasty KAROLINA KYPHO AUTOPLEX FDA Start: 04-17-2022 Kyphoplasty KAROLINA KYPHO AUTOPLEX FDA Start: 04-17-2022 Kyphoplasty KAROLINA KYPHO AUTOPLEX FDA Start: 04-17-2022 Kyphoplasty FDA Start: 04-17-2022 Kyphoplasty FDA Start: 04-17-2022 Kyphoplasty FDA Start: 04-17-2022 Kyphoplasty FDA Start: 04-17-2022 Kyphoplasty FDA Start: 04-17-2022 Kyphoplasty FDA Start: 04-17-2022 Kyphoplasty FDA Start: 04-17-2022 Kyphoplasty FDA Start: 04-17-2022 Kyphoplasty FDA Start: 04-17-2022 Kyphoplasty FDA Start: 04-17-2022 Kyphoplasty FDA Start: 04-17-2022 Goals Date Patient Goal Desired Activity /State Functional Status Date Assessment Result Facility 10-09-2024 Functional status Chair [facility] Work Phone: 09-03-2024 Functional status Ambulates [facility] Work Phone: 08-31-2024 Functional status Chair [facility] Work Phone: 07-26-2024 Functional status Ambulates;[facility] 06-15-2024 Functional status Up ad ken;Chair [facility] [facility] 05-30-2024 Functional status With Assist of [address] [facility] Work Phone: 05-27-2024 Functional status Bathroom Privilege [facility] Work Phone: 05-16-2024 Are you deaf, or do you have serious difficulty hearing Yes 05/16/2024 1:06 PM Twin Norwood RN Yes [facility] 05-16-2024 Are you blind, or do you have serious difficulty seeing, even when wearing glasses No 05/16/2024 1:06 PM Twin Norwood RN No [facility] 05-16-2024 Do you have serious difficulty walking or climbing stairs Yes 05/16/2024 1:06 PM Twin Norwood RN Yes [facility] 05-16-2024 Do you have difficul ty dressing or bathing Yes 05/16/2024 1:06 PM Twin Norwood RN Yes [facility] 05-16-2024 Because of a physica l, mental, or emotional condition, do you have difficulty doing errands alone such as visiting a physician's office or shopping Yes 05/16/2024 1:06 PM Twin Norwood RN Yes [facility] 04-18-2022 Functional status Bathroom Privilege [facility] Work Phone: 04-11-2022 Functional status Ambulates [facility] Work Phone: 03-18-2022 Functional status Up ad ken [facility] Work Phone: 02-18-2022 Functional status Ambulates [facility] Work Phone: 02-14-2022 Functional status Chair [facility] Work Phone: 02-11-2022 Functional status Ambulates;Marques r;Bedside Commode [facility] Work Phone: 07-25-2021 Functional status Ambulates [facility] Work Phone: Mental Status Date Assessment Result Facility 11-17-2024 Cognitive function Voice/Name [facility] Work Phone: 10-09-2024 Cognitive function Voice/Name [facility] Work Phone: 10-03-2024 Cognitive function Awake;Alert;F ollows Commands [facility] Work Phone: 09-03-2024 Cognitive function Voice/Name [facility] Work Phone: 08-31-2024 Cognitive function Voice/Name [facility] Work Phone: 08-30-2024 Cognitive function Awake;Alert [facility] Work Phone: 07-26-2024 Cognitive function Voice/Name [facility] Work Phone: 07-06-2024 Cognitive function Appropriate [facility] Work Phone: 06-15-2024 Cognitive function Voice/Name [facility] Work Phone: 06-10-2024 Cognitive function Appropriate;Cooperativ e [facility] Work Phone: 05-30-2024 Cognitive function Voice/Name [facility] Work Phone: 05-16-2024 Because of a physica l, mental, or emotional condition, do you have serious difficulty concentrating, remembering, or making decisions No 05/16/2024 1:06 PM Twin Norwood RN [facility] 05-11-2024 Cognitive function Awake;Alert;A ppropriate;Fol lows Commands [facility] Work Phone: 05-12-2023 Cognitive function Level Of Cons ciousness Awake;Alert;Appropriate;Fol lows Commands [facility] Work Phone: 04-18-2022 Cognitive function Voice/Name [facility] Work Phone: 04-11-2022 Cognitive function Voice/Name [facility] Work Phone: 03-18-2022 Cognitive function Voice/Name [facility] Work Phone: 03-17-2022 Cognitive function Appropriate;Cooperativ [facility] Work Phone: 02-18-2022 Cognitive function Demonstrates ability to follow instructions/comprehend [facility] Work Phone: 02-14-2022 Cognitive function Voice/Name [facility] Work Phone: 02-11-2022 Cognitive function Voice/Name [facility] Work Phone: 02-09-2022 Cognitive function Level Of Cons ciousness Awake;Alert;Appropriate;Fol lows Commands [facility] Work Phone: 07-25-2021 [facility]: 07-25-2021 Cognitive function Arousable To Voice/Nam e [facility] Work Phone: Clinical Notes 05-12-2023 to 11-17-2024 Nichole Guerra, DO - 10/13/2024 12:35 AM EDTMjessica Guerra, DO - 10/13/2024 12:35 AM EDT Note Date & Type Note Facility 11-17-2024 Radiology Diagnostic study note [facility] 10-13-2024 Physician Emergency department Note HPI Chief Complaint Patient presents with Altered Mental Status Via AFD from [facility]. Facility RN reports she woke up yelling/flailing. LKW 2030 when staff put her to bed. Mari URBAN met in [facility] 89-year-old female presents from [facility] very agitated and upset. Symptoms started approximately an hour prior to arrival. Patient was given a milligram of IM Ativan and is calm down. I did speak to the daughter and go over the results of the test which indicate patient a mild urinary tract infection. This will be treated and patient will be sent back to the facility. History provided by: Patient Patient History Medical History[1] Surgical History[2] Family History[3] Social History[4] Physical Exam ED Triage Vitals [10/12/242313] Temperature Heart Rate Respirations BP 36.6 C (97.8 F) 85 18 115/80 Pulse Ox Temp Source Heart Rate Source Patient Position (!) 92 % Temporal Monitor -- BP Location FiO2 (%) -- -- Physical Exam Vitals and nursing note reviewed. Constitutional: Appearance: Normal appearance. HENT: Head: Normocephalic and atraumatic. Right Ear: Tympanic membrane normal. Left Ear: Tympanic membrane normal. Nose: Nose normal. Mouth/Throat: Mouth: Mucous membranes are moist. Eyes: Extraocular Movements: Extraocular movements intact. Pupils: Pupils are equal, round, and reactive to light. Cardiovascular: Rate and Rhythm: Normal rate. Pulmonary: Effort: Pulmonary effort is normal. Breath sounds: Normal breath sounds. Abdominal: General: Abdomen is flat. Palpations: Abdomen is soft. Musculoskeletal: General: Normal range of motion. Cervical back: Normal range of motion. Skin: General: Skin is warm and dry. Neurological: General: No focal deficit present. Mental Status: She is alert and oriented to person, place, and time. Psychiatric: Mood and Affect: Mood is anxious. ED Course & MDM ED Course as of 10/13/2443Oct 13, 2024 0036 Twelve-lead EKG interpreted by myself at 2320 1 normal sinus rhythm at 91 2 right bundle branch block 3 left axis deviation [MS] ED Course User Index [MS] Nichole Guerra DO Diagnoses as of 10/13/24 0044 Altered mental status, unspecified altered mental status type UTI (urinary tract infection), bacterial No data recorded [place] Coma Scale Score: 13 (10/12/24 2313 : Branden Mcclain RN) Medical Decision Making 1 take medication as prescribed 2 resume home medication 3 further treatment per facility attending if symptoms worsen return to ED. Procedure Procedures [1] Past Medical History: Diagnosis Date Age-related osteoporosis without current pathological fracture COPD (chronic obstructive pulmonary disease) (Multi) Disease of thyroid gland Dorsalgia Hemiplegia and hemiparesis following cerebral infarction affecting left non-dominant side (Multi) Hypertension Iron deficiency anemia Migraine Obstructive sleep apnea Paroxysmal atrial fibrillation (Multi) Restless leg syndrome Unspecified osteoarthritis, unspecified site [2] No past surgical history on file. [3] No family history on file. [4] Social History Tobacco Use Smoking status: Not on file Smokeless tobacco: Not on file Substance Use Topics Alcohol use: Not on file Drug use: Not on file Nichole Guerra DO 10/13/2444 [facility] Work Phone: 10-13-2024 Emergency department Note HPI Chief Complaint Patient presents with Altered Mental Status Via AFD from [facility]. Facility RN reports she woke up yelling/flailing. LKW 2029 when staff put her to bed. Mari URBAN met in [facility] 89-year-old female presents from [facility] very agitated and upset. Symptoms started approximately an hour prior to arrival. Patient was given a milligram of IM Ativan and is calm down. I did speak to the daughter and go over the results of the test which indicate patient a mild urinary tract infection. This will be treated and patient will be sent back to the facility. History provided by: Patient Patient History Medical History[1] Surgical History[2] Family History[3] Social History[4] Physical Exam ED Triage Vitals [10/12/24 2314] Temperature Heart Rate Respirations BP 36.6 C (97.8 F) 85 18 115/80 Pulse Ox Temp Source Heart Rate Source Patient Position (!) 92 % Temporal Monitor -- BP Location FiO2 (%) -- -- Physical Exam Vitals and nursing note reviewed. Constitutional: Appearance: Normal appearance. HENT: Head: Normocephalic and atraumatic. Right Ear: Tympanic membrane normal. Left Ear: Tympanic membrane normal. Nose: Nose normal. Mouth/Throat: Mouth: Mucous membranes are moist. Eyes: Extraocular Movements: Extraocular movements intact. Pupils: Pupils are equal, round, and reactive to light. Cardiovascular: Rate and Rhythm: Normal rate. Pulmonary: Effort: Pulmonary effort is normal. Breath sounds: Normal breath sounds. Abdominal: General: Abdomen is flat. Palpations: Abdomen is soft. Musculoskeletal: General: Normal range of motion. Cervical back: Normal range of motion. Skin: General: Skin is warm and dry. Neurological: General: No focal deficit present. Mental Status: She is alert and oriented to person, place, and time. Psychiatric: Mood and Affect: Mood is anxious. ED Course & MDM ED Course as of 10/13/24 0044 FriOct 13, 2024 0036 Twelve-lead EKG interpreted by myself at 2320 1 normal sinus rhythm at 91 2 right bundle branch block 3 left axis deviation [MS] ED Course User Index [MS] Nichole Guerra DO Diagnoses as of 10/13/24 0044 Altered mental status, unspecified altered mental status type UTI (urinary tract infection), bacterial No data recorded [place] Coma Scale Score: 13 (10/12/24 2313 : Branden Mcclain RN) Medical Decision Making 1 take medication as prescribed 2 resume home medication 3 further treatment per facility attending if symptoms worsen return to ED. Procedure Procedures [1] Past Medical History: Diagnosis Date Age-related osteoporosis without current pathological fracture COPD (chronic obstructive pulmonary disease) (Multi) Disease of thyroid gland Dorsalgia Hemiplegia and hemiparesis following cerebral infarction affecting left non-dominant side (Multi) Hypertension Iron deficiency anemia Migraine Obstructive sleep apnea Paroxysmal atrial fibrillation (Multi) Restless leg syndrome Unspecified osteoarthritis, unspecified site [2] No past surgical history on file. [3] No family history on file. [4] Social History Tobacco Use Smoking status: Not on file Smokeless tobacco: Not on file Substance Use Topics Alcohol use: Not on file Drug use: Not on file Nichole Guerra DO 10/13/2444 documented in this encounter [facility] Work Phone: 10-09-2024 Discharge summary Note Date/Time October 09, 2024 11:02am [facility] Medical Records Department [address] [place] [address] Discharge Summary 10/09/24 0957 MR#: [id number] Acct: [id number] Name: JOYCE SOLOMON Rep #:[id number] : 1935 89 From: Santino kong DO PCP: Dr. Bridget Swenson MD Status :ADM IN Location: [place] [address] Providers Date of Admission: 10/03/24 Date of Discharge: 10/09/24 Primary Care Physician: Dr. Bridget Swenson MD Consultations 10/04/24 13:56 Teleneurology [Consult: Tele-Neurology] Routine Consulting Provider: [facility] Reason for Consult: acute CVA EMERGENT Consult: No MD Notified: Yes Date Notified: 10/04/24 Time Notified: 14:38 Method of Notification: Answering Service Nursing Unit Staff Notify [facility] of Tele-Neurology Consult: Yes Reason For Visit: ACUTE TOXIC ENCEPHALOPATHY 2/2 ADR TO HYDROCODONE Diagnosis Discharge Diagnosis (1) Toxic encephalopathy: Status: Acute Code(s): G92.9 - Unspecified toxic encephalopathy Qualifiers: Toxic encephalopathy cause: unspecified toxin Qualified Code(s): G92.9 - Unspecified toxic encephalopathy Medications at Discharge Home Medications denosumab 60 mg/mL subcutaneous syringe (Prolia) 60 mg subcut [id number] osteoporosis 10/08/19 aspirin 81 mg chewable tablet 1 tab PO DAILY Heart health 05/16/24 losartan 100 mg tablet 100 mg PO DAILY #0 tabs 07/20/24 metoprolol tartrate 100 mg tablet 100 mg PO BID 30 days #60 tabs 07/20/24 ascorbic acid (vitamin C) 500 mg tablet (C-500) 500 mg PO DAILY supplement 08/30/24 cholecalciferol (vitamin D3) 25 mcg (1,000 unit) capsule 2,000 unit PO DAILY supplement 08/30/24 magnesium oxide 420 mg tablet 420 mg PO DAILY 08/30/24 rosuvastatin 20 mg tablet 20 mg PO QHS 1 month #30 tabs 08/31/24 amlodipine 10 mg tablet 10 mg PO DAILY #0 tabs 09/03/24 docusate sodium 100 mg capsule (Dulcolax Stool Softener (docusate)) 100 mg PO DAILY 10/03/24 ferrous sulfate 325 mg (65 mg iron) tablet (iron) 325 mg PO DAILY 10/03/24 furosemide 40 mg tablet (Lasix) 40 mg PO DAILY 10/03/24 acetaminophen 500 mg tablet 1,000 mg (2 x 500 mg) PO Q8H PRN PRN pain #0 tabs 10/09/24 hydrocodone 7.5 mg-acetaminophen 325 mg tablet 1 tab PO QHS PRN PRN pain (scale score 4-6) 7 days #0 tabs 10/09/24 pramipexole 0.75 mg tablet 0.75 mg PO QHS #30 tabs 10/09/24 Hospital Course Operations None Procedures EKG and - (CT brain/C-spine, CT chest, hip/pelvis x-ray, MRI brain) Summary of Care Provided Minutes Spent on Discharge: 35 Hospital Course: Patient is an 89-year-old female who presented to [facility] ED on 10/03/2024 with worsening confusion with weakness. Hospital course as noted below. Patient discharged to SNF in stable condition on 10/09. 1. Acute toxic encephalopathy, improved ? Presented from home with worsening confusion with delirium. Lives at home alone. Notably much improved on hospital day 2 and alert and oriented x 3. Highest concern is encephalopathy secondary to high home dosage of pramipexole for RLS. Seems less likely that acute CVA is contributing but cannot rule this out. Patient is on 3 mg of pramipexole at night; no history of Parkinson's thatis noted. It appears on chart review that she was on 1.5 mg at night as of a few months ago; unclear when the dosage was increased. Decreased back to 1.5 mgat night on 10/04; reported mild delusions overnight with some improvement from previous. Decreased to 0.75 mg at night on 10/05 and tolerated well. Will continue this dosing moving forward. 2. Acute CVA; recent history of CVA with resultant intracranial hemorrhage ? Neurology followed. Patient had an acute CVA with resultant right intracranial hemorrhage in April 2024. Has been off warfarin since then; wason warfarin for paroxysmal A-fib as noted below. Presented on this admission with worsening confusion with delirium as above. No new motor deficits noted. CT brain unremarkable. However, MRI brain showed an acute right punctate lacunar type infarction in the posterior right centrum. Per neurology, lesion is more consistent with acute ischemic stroke but cannot rule out embolic in setting of paroxysmal A-fib. However, patient wishes to continue with home babyaspirin and will not restart anticoagulation. Per neurology, can consider cardiology evaluation for possible Watchman device but patient noted that she does not believe she was a candidate for this in the recent past. Will continueto treat with home aspirin, statin, Lopressor, Lasix and losartan. 3. Acute on chronic debility with recent fall at home ? PT/OT/case management followed. Patient lives at home alone. Was discharged to SNF at [facility] after recent hospitalization in late August. Therapy scores borderline here. Medically ready for discharge on 10/07, discharged to SNF in stable condition on 10/09. 4. Paroxysmal A-fib ? Per history. Was previously on warfarin but this was discontinued in e to her intracranial hemorrhage as noted above. Has been stable in normal sinus rhythm since admission. Continue home Lopressor and baby aspirin. 5. Chronic back pain ? On home hydrocodone?acetaminophen 7.5?325 mg up to 4 times daily as needed. Patient denies overuse of this medication but there is concern that this could be contributing to her encephalopathy as above. Will treat with Tylenol as needed and hydrocodone?acetaminophen nightly as needed for her pain going forward. 6. Restless leg syndrome ? On pramipexole at home. As noted above, had dosage increase from 1.5 to 3 mg at night at some point in the past few months for unclear reason. Notably recommended dosing for RLS is a maximum of 0.75 mg daily. Dosing can be higher for Parkinson's disease but patient has no Parkinson's diagnosis listed. Decreased dosage as noted above. 7. Concern for UTI ? UA with 2+ bacteria but negative leukocyte esterase and negative nitrates. Urine culture growing 80-100,000 Aerococcus. Patient with no UTI symptoms and otherwise noninfectious appearing, no need for antibiotics. 8. Chronic iron deficiency anemia ? Hemoglobin stable at baseline around 10-11 during hospitalization. Continue home iron supplement. Total clinical time spent by myself addressing the patient's medical issues, reviewing all the data, and collaborating with patient's care team: 35 minutes. Physical Exam Const alert, oriented x3, no apparent distress and average body habitus Constitutional Narrative: Elderly female, mildly fatigued appearing but otherwise sitting up comfortably in bedside chair, conversing normally, in no acute distress. Stable. General Appearance: cooperative and comfortable HEENT normocephalic, head/scalp atraumatic, hearing grossly normal bilaterally, nasal mucous membranes and turbinates normal and moist oral mucous membranes Eyes PERRL, EOMs intact bilaterally and conjunctivae normal Neck full ROM Chest inspection of chest normal Resp normal respiratory effort, normal air movement, no use of accessory muscles and clear to auscultation bilaterally Cardio regular rate, regular rhythm, no murmurs and peripheral pulses 2+ throughout GI normal to inspection, nondistended, normoactive bowel sounds, soft to palpation,non-tender and non-distended Back/Spine normal ROM Extremity normal to inspection, full ROM and no pedal edema Skin no rashes or lesions noted Psych mental status grossly normal Medical Records Data Medical Nutrition Assessment Dietitian: Malnutrition Criteria Met Start: 10/04/24 15:46 Freq: Status: Active Protocol: Document 10/07/24 14:11 SB (Rec: 10/07/24 14:11 SB [id number]) Nutrition Malnutrition Evidence of Yes Malnutrition Exists Malnutrition ( Chronic moderate): Evidenced By Suboptimal Energy Intake (Moderate),Weight Loss (Severe ),Physical Changes (Moderate) Clinical Problem Chronic Disease or Condition Related Malnutrition Etiology related to decreased appetite and oral intakes Signs/Symptoms as evidenced by significant weight loss of 7.4% or 12lb x 1 month, PO meeting <75% of estimated nutrition needs x 7 months, visual evidence of mild to moderate muscle and fat wasting (temples, occular, interosseous, clavicle, etc.). Status Active Problem Recommendation Dietitian Adjust to liberal Regular, Gluten Free diet for Recommendations/ allergies per PLAST[employer] AND COMPOSITES INSPECTOR consistency/texture recommendations. Changes Continue chocolate magic cup with lunch and dinner. Will order chocolate or strawberry RUPERT TID with meals. Will continue to follow, monitor oral intakes and modify nutrition interventions as needed. Weight / BMI Weight Weight: 69.2 kg Body Mass Index (BMI) 29.7 ABG / Lab / Microbiology Data 10/08/24 04:41 10/08/24 04:41 Microbiology: Microbiology 10/03/24 20:30 Urine Catheter - Catheter Urine Culture - Final Aerococcus urinae D/C Instructions DC O2, CPAP, BIPAP Needs Home O2 Discharge instructions: No Meaningful Use Info Meaningful Use Meaningful Use Diagnoses (Choose all that apply): None applicable Ischemic Stroke Statin Dosing Therapy Reference: STATIN DOSE THERAPY REFERENCE: * Patients > 75 years receive moderate or high dose statin therapy. * Patients 75 years or YOUNGER should receive HIGH intensity statin dose unless contraindicated. You will be required to document reason for non-treatment if statin daily dose does not meet guidelines. HIGH DOSE STATIN THERAPY DAILY Atorvastatin > than or = to 40 mg Rosuvastatin > than or = to 20 mg Amlodipine + Atorvastatin > than or = to 2.5/40 mg Ezetimibe + Simvastatin 10/80 mg Simvastatin 80mg Discharge Plan Admission Admit Date/Time: 10/06/24 14:26 Primary Reason for Your Visit: Confusion Attending Provider: Santino Haas Primary Care Provider: Bridget Swenson Consulting Providers: Juan José Suarez Discharge Orders/Prescriptions Prescriptions: New pramipexole 0.75 mg tablet 0.75 mg PO QHS Qty: 30 2RF Continued Prolia 60 mg/mL syringe 60 mg SC [id number] Patient Comments: due February Rx Instructions: due in february aspirin 81 mg tablet,chewable 1 tab PO DAILY metoprolol tartrate 100 mg Tablet 100 mg PO BID 30 Days Qty: 60 0RF losartan 100 mg Tablet 100 mg PO DAILY Qty: 0 0RF magnesium oxide 420 mg tablet 420 mg PO DAILY ascorbic acid (vitamin C) [C-500] 500 mg tablet 500 mg PO DAILY cholecalciferol (vitamin D3) 25 mcg (1,000 unit) capsule 2,000 unit PO DAILY rosuvastatin 20 mg tablet 20 mg PO QHS 30 Days Qty: 30 2RF amlodipine 10 mg Tablet 10 mg PO DAILY Qty: 0 0RF Rx Instructions: Hold for SBP less than 130 mmHg furosemide [Lasix] 40 mg tablet 40 mg PO DAILY ferrous sulfate [iron] 325 mg (65 mg iron) tablet 325 mg PO DAILY docusate sodium [Dulcolax Stool Softener (dss)] 100 mg capsule 100 mg PO DAILY Changed acetaminophen 500 mg Tablet 1,000 mg PO Q8H PRN PRN (Reason: pain) Qty: 0 0RF hydrocodone-acetaminophen 7.5-325 mg tablet 1 tab PO QHS PRN PRN (Reason: pain (scale score 4-6)) 7 Days Qty: 0 0RF Discontinued pramipexole 1 mg Tablet 3 mg PO QHS 30 Days Qty: 90 0RF Rx Instructions: Pramipexole and tramadol might make drowsiness worse therefore try to avoid together nitrofurantoin monohyd/m-cryst [Macrobid] 100 mg capsule 100 mg PO Q12H 5 Days Qty: 10 0RF Rx Instructions: must administer with a meal/food Referrals / Follow Up: Bridget Swenson MD [Primary Care Provider] - Disposition Disposition (needs filled in before D/C Order can be placed): [facility] Charges/Coding Visit Charges Inpatient E&M: 69482 Disch Hosp >30min 10/09/24 1102 <Electronically signed by Santino Haas DO> Cosigner Signature (if applicable): CC: Dr. Santino Haas DO; Dr. Bridget Swenson MD~ Signed [facility] Work Phone: [phone] Discharge summary Author Santino Haas [facility] Note Date/Time October 09, 2024 10:05 am [facility] Medical Records Department [address] [place] [address] Transfer to [facility] MR#: [id number] Acct: [id number] Name: JOYCE SOLOMON Rep #:[id number] : 1935 89 From: Santino knog DO PCP: Dr. Bridget Swenson MD Status :ADM IN Certification of patient admission REQUIRED AT TIME OF ADMISSION. I CERTIFY THAT POST-HOSPITAL F SERVICES ARE REQUIRED TO BE GIVEN ON AN IN-PATIENT BASIS BECAUSE OF THE ABOVE NAMED PATIENT'S NEED FOR USP CARE ON A CONTINUING BASIS FOR THE CONDITION(S) FOR WHICH HE/SHE WAS RECEIVING IN-PATIENT HOSPITAL SERVICES PRIOR TO HIS/HER TRANSFER TO THE [facility]. 10/09/24 1005<Electronically signed by Santino Haas DO> Diet Diet Order/Speech Therapy: INPATIENT Hospital Diet / Speech Therapy Order(s) 10/07/24 15:51 Diet: Regular - General Food consistency:: Easy to Chew Dietary Modifications:: Gluten Free Type of Dietary Supplement:: Dorsey Breakfast Diet Comments: Direct sup, meds whole in , chocolate magic cup w/ L & D, CBchoc/stw TID Routine Orders/Code Status Code Status: DNRCC-A (DO NOT INTUBATE) DC O2, CPAP, BIPAP needs Home O2 Discharge instructions: No Therapies Weight Bearing: Full weight bearing Physical Therapy: Eval and Treat Occupational Therapy: Eval and Treat Problem/Diagnosis (1) Toxic encephalopathy: Status: Acute Code(s): G92.9 - Unspecified toxic encephalopathy Plan Patient is an 89-year-old female who presented to [facility] ED on 10/03/2024 with worsening confusion with weakness. Hospital course as noted below. Patient discharged to SNF in stable condition on 10/09. 1. Acute toxic encephalopathy, improved ? Presented from home with worsening confusion with delirium. Lives at home alone. Notably much improved on hospital day 2 and alert and oriented x 3. Highest concern is encephalopathy secondary to high home dosage of pramipexole for RLS. Seems less likely that acute CVA is contributing but cannot rule this out. Patient is on 3 mg of pramipexole at night; no history of Parkinson's thatis noted. It appears on chart review that she was on 1.5 mg at night as of a few months ago; unclear when the dosage was increased. Decreased back to 1.5 mgat night on 10/04; reported mild delusions overnight with some improvement from previous. Decreased to 0.75 mg at night on 10/05 and tolerated well. Will continue this dosing moving forward. 2. Acute CVA; recent history of CVA with resultant intracranial hemorrhage ? Neurology followed. Patient had an acute CVA with resultant right intracranial hemorrhage in April 2024. Has been off warfarin since then; wason warfarin for paroxysmal A-fib as noted below. Presented on this admission with worsening confusion with delirium as above. No new motor deficits noted. CT brain unremarkable. However, MRI brain showed an acute right punctate lacunar type infarction in the posterior right centrum. Per neurology, lesion is more consistent with acute ischemic stroke but cannot rule out embolic in setting of paroxysmal A-fib. However, patient wishes to continue with home babyaspirin and will not restart anticoagulation. Per neurology, can consider cardiology evaluation for possible Watchman device but patient noted that she does not believe she was a candidate for this in the recent past. Will continueto treat with home aspirin, statin, Lopressor, Lasix and losartan. 3. Acute on chronic debility with recent fall at home ? PT/OT/case management followed. Patient lives at home alone. Was discharged to SNF at [facility] after recent hospitalization in late August. Therapy scores borderline here. Medically ready for discharge on 10/07, discharged to SNF in stable condition on 10/09. 4. Paroxysmal A-fib ? Per history. Was previously on warfarin but this was discontinued in to her intracranial hemorrhage as noted above. Has been stable in normal sinus rhythm since admission. Continue home Lopressor and baby aspirin. 5. Chronic back pain ? On home hydrocodone?acetaminophen 7.5?325 mg up to 4 times daily as needed. Patient denies overuse of this medication but there is concern that this could be contributing to her encephalopathy as above. Will treat with Tylenol as needed and hydrocodone?acetaminophen nightly as needed for her pain going forward. 6. Restless leg syndrome ? On pramipexole at home. As noted above, had dosage increase from 1.5 to 3 mg at night at some point in the past few months for unclear reason. Notably recommended dosing for RLS is a maximum of 0.75 mg daily. Dosing can be higher for Parkinson's disease but patient has no Parkinson's diagnosis listed. Decreased dosage as noted above. 7. Concern for UTI ? UA with 2+ bacteria but negative leukocyte esterase and negative nitrates. Urine culture growing 80-100,000 Aerococcus. Patient with no UTI symptoms and otherwise noninfectious appearing, no need for antibiotics. 8. Chronic iron deficiency anemia ? Hemoglobin stable at baseline around 10-11 during hospitalization. Continue home iron supplement. Total clinical time spent by myself addressing the patient's medical issues, reviewing all the data, and collaborating with patient's care team: 35 minutes. Allergies/Procedures Done in Hospital Allergies cefazolin (From Ancef) Allergy (Severe, Verified 10/03/24 17:47) Swelling Thoat and mouth swelling silk Allergy (Intermediate, Verified 10/03/24 17:47) itching duloxetine (From Cymbalta) Allergy (Unknown, Verified 10/03/24 17:47) Hives shellfish derived Allergy (Unknown, Verified 10/03/24 17:47) Other Throat irritation beet (Beet) Allergy (Verified 10/03/24 17:47) Hives cantaloupe Allergy (Verified 10/03/24 17:47) Food Allergy HIVES eggplant Allergy (Verified 10/03/24 17:47) Hives Food Allergies: Uncoded Allergy (Verified 10/03/24 17:47) Itching fermented foods, concentrates levofloxacin (From Levaquin) Allergy (Verified 10/03/24 17:47) Unknown mold Allergy (Verified 10/03/24 17:47) NEEDS FOLLOW-UP Penicillins Allergy (Verified 10/03/24 17:47) Unknown tomato Allergy (Verified 10/03/24 17:47) Food Allergy wheat Allergy (Verified 10/03/24 17:47) Hives gabapentin (From Neurontin) Adverse Reaction (Verified 10/03/24 17:47) Other meloxicam (From Mobic) Adverse Reaction (Verified 10/03/24 17:47) Other oxycodone (From OxyIR) Adverse Reaction (Verified 10/03/24 17:47) Nausea risedronate sodium (From Actonel) Adverse Reaction (Verified 10/03/24 17:47) Other Procedures: EKG and - (CT brain/C-spine, CT chest, hip/pelvis x-ray, MRI brain) Type of Care/Length of Stay Estimated LOS: Convalescent Care Less Than 30 days Type of Care Needed: Skilled Rehab Potential: Fair Prognosis: Fair Additional Orders/Day of Discharge H&P will serve as current which was dated: 10/03/24 Day of Discharge: 10/09/24 Dietary and Speech Recommendations Dietitian Recommendations/Changes: Adjust to liberal Regular, Gluten Free diet for allergies per PLASTICS AND COMPOSITES INSPECTOR consistency/texture recommendations. Continue chocolate magic cup with lunch and dinner. Will order chocolate or strawberry RUPERT TID with meals. Will continue to follow, monitor oral intakes and modify nutrition interventionsas needed. Discharge Plan Admission Admit Date/Time: 10/06/24 14:26 Primary Reason for Your Visit: Confusion Attending Provider: Santino Haas Primary Care Provider: Bridget Swenson Consulting Providers: Juan José Suarez Discharge Orders/Prescriptions Prescriptions: New pramipexole 0.75 mg tablet 0.75 mg PO QHS Qty: 30 2RF Continued Prolia 60 mg/mL syringe 60 mg SC [id number] Patient Comments: due February Rx Instructions: due in february aspirin 81 mg tablet,chewable 1 tab PO DAILY metoprolol tartrate 100 mg Tablet 100 mg PO BID 30 Days Qty: 60 0RF losartan 100 mg Tablet 100 mg PO DAILY Qty: 0 0RF magnesium oxide 420 mg tablet 420 mg PO DAILY ascorbic acid (vitamin C) [C-500] 500 mg tablet 500 mg PO DAILY cholecalciferol (vitamin D3) 25 mcg (1,000 unit) capsule 2,000 unit PO DAILY rosuvastatin 20 mg tablet 20 mg PO QHS 30 Days Qty: 30 2RF amlodipine 10 mg Tablet 10 mg PO DAILY Qty: 0 0RF Rx Instructions: Hold for SBP less than 130 mmHg furosemide [Lasix] 40 mg tablet 40 mg PO DAILY ferrous sulfate [iron] 325 mg (65 mg iron) tablet 325 mg PO DAILY docusate sodium [Dulcolax Stool Softener (dss)] 100 mg capsule 100 mg PO DAILY Changed acetaminophen 500 mg Tablet 1,000 mg PO Q8H PRN PRN (Reason: pain) Qty: 0 0RF hydrocodone-acetaminophen 7.5-325 mg tablet 1 tab PO QHS PRN PRN (Reason: pain (scale score 4-6)) 7 Days Qty: 0 0RF Discontinued pramipexole 1 mg Tablet 3 mg PO QHS 30 Days Qty: 90 0RF Rx Instructions: Pramipexole and tramadol might make drowsiness worse therefore try to avoid together nitrofurantoin monohyd/m-cryst [Macrobid] 100 mg capsule 100 mg PO Q12H 5 Days Qty: 10 0RF Rx Instructions: must administer with a meal/food Referrals / Follow Up: Bridget Swenson MD [Primary Care Provider] - Disposition Disposition (needs filled in before D/C Order can be placed): [facility] (1) Toxic encephalopathy Qualifiers: Toxic encephalopathy cause: unspecified toxin Qualified Code(s): G92.9 - Unspecified toxic encephalopathy 10/09/24 100 <Electronically signed by Santino Haas DO> Cosigner Signature (if applicable): CC: Dr. Bridget Swenson MD; Dr. Juan José Suarez DO ~ [facility] Work Phone: [phone]) 427-880405-31-2025 [facility]05-30-2025 Progress note Author Santino Haas [facility] Note Date/Time October 08, 2024 2:38p [facility] Medical Records Department [address] [place] [address] Progress Note - Hospitalist 10/08/24 1152 MR#: [id number] Acct: [id number] Name: JOYCE SOLOMON Rep #:[id number] : 1935 89 From: Santino kong DO PCP: Dr. Bridget Swenson MD Status :ADM IN Location: [place] [address] Reason for Visit Reason for Visit: Diagnoses Other chronic pain (10/06/24) Unspecified toxic encephalopathy (10/06/24) Unspecified sequelae of cerebral infarction (10/06/24) Dorsalgia, unspecified (10/06/24) Urinary tract infection, site not specified (10/06/24) Adverse effect of unspecified drugs, medicaments and biological substances, initial encounter (10/06/24) Unspecified fall, initial encounter (10/06/24) Patient's noncompliance with other medical treatment and regimen due to unspecified reason (10/06/24) Subjective Subjective Saw patient at bedside this morning. Patient was sitting back in bedside chair and appeared similar to previous days. She did report that she again did not get much sleep last night due to ongoing neuropathic pain in her right thigh area. She denied any worsening of restless leg syndrome and continues to deny delusions. No other new concerns this morning. Objective Data Objective Data Vital Signs: Vital Signs Temp Pulse Resp BP Pulse Ox O2 Del Method 97.9 F 80 16 142/61 H 96 Room Air 10/08/24 08:16 10/08/24 08:44 10/08/24 08:16 10/08/24 08:16 10/08/24 08:16 10/08/24 08:19 Oxygen Delivery Method Room Air Weight: 68.6 kg Body Mass Index (BMI) 29.5 Intake & Output: Intake and Output for Last 24 Hours 10/06/24 10/07/24 10/08/24 23:59 23:59 23:59 Intake Total 240 / 240 Output Total 600 / 600 Balance -600 / -600 240 / 240 Medical Nutrition Assessment Dietitian: Malnutrition Criteria Met Start: 10/04/24 15:46 Freq: Status: Active Protocol: Document 10/07/24 14:11 SB (Rec: 10/07/24 14:11 SB [id number]) Nutrition Malnutrition Evidence of Yes Malnutrition Exists Malnutrition ( Chronic moderate): Evidenced By Suboptimal Energy Intake (Moderate),Weight Loss (Severe ),Physical Changes (Moderate) Clinical Problem Chronic Disease or Condition Related Malnutrition Etiology related to decreased appetite and oral intakes Signs/Symptoms as evidenced by significant weight loss of 7.4% or 12lb x 1 month, PO meeting <75% of estimated nutrition needs x 7 months, visual evidence of mild to moderate muscle and fat wasting (temples, occular, interosseous, clavicle, etc.). Status Active Problem Recommendation Dietitian Adjust to liberal Regular, Gluten Free diet for Recommendations/ allergies per PLASTICS AND COMPOSITES INSPECTOR consistency/texture recommendations. Changes Continue chocolate magic cup with lunch and dinner. Will order chocolate or strawberry RUPERT TID with meals. Will continue to follow, monitor oral intakes and modify nutrition interventions as needed. Lab / Micro Data 10/08/24 04:41 10/08/24 04:41 Labs: Laboratory Results - last 24 hr 10/08/24 04:41: WBC 8.0, RBC 3.93 L, Hgb 11.3 L, Hct 35.4 L, MCV 90.1, MCH 28.8,MCHC 31.9 L, RDW Std Deviation 44.8 H, RDW Coeff of Tiffani 13.4, Plt Count 377, MPV9.5, Sodium 132 L, Potassium 4.7, Chloride 99, Carbon Dioxide 21.3, Anion Gap 13, BUN 20 H, Creatinine 0.86, Estim Creat Clear Calc 39.07 L, Est GFR (MDRD) Non-Af 65, BUN/Creatinine Ratio 23.6 H, Glucose 120 H, Calcium 8.3 Micro: Microbiology 10/03/24 20:30 Urine Catheter - Catheter Urine Culture - Final Aerococcus urinae Rhythm Strip Rhythm Strip: Sinus Rhythm Rate: 88 Ectopy: None Physical Exam Const alert, oriented x3, no apparent distress and average body habitus Constitutional Narrative: Elderly female, mildly fatigued appearing but otherwise sitting up comfortably in bedside chair, conversing normally, in no acute distress. Stable. General Appearance: cooperative and comfortable HEENT normocephalic, head/scalp atraumatic, hearing grossly normal bilaterally, nasal mucous membranes and turbinates normal and moist oral mucous membranes Eyes PERRL, EOMs intact bilaterally and conjunctivae normal Neck full ROM Chest inspection of chest normal Resp normal respiratory effort, normal air movement, no use of accessory muscles and clear to auscultation bilaterally Cardio regular rate, regular rhythm, no murmurs and peripheral pulses 2+ throughout GI normal to inspection, nondistended, normoactive bowel sounds, soft to palpation,non-tender and non-distended Back/Spine normal ROM Extremity normal to inspection, full ROM and no pedal edema Skin no rashes or lesions noted Psych mental status grossly normal Assessment & Plan Assessment/Plan (1) Toxic encephalopathy: QUALIFIERS: Toxic encephalopathy cause: unspecified toxin Qualified Code(s): G92.9 - Unspecified toxic encephalopathy PLAN: Plan Patient is an 89-year-old female who presented to [facility] ED on 10/03/2024 with worsening confusion with weakness. 1. Acute toxic encephalopathy, improving ? Presented from home with worsening confusion with delirium. Lives at home alone. Notably much improved on hospital day 2 and alert and oriented x 3. Highest concern is encephalopathy secondary to high home dosage of pramipexole for RLS. Seems less likely that acute CVA is contributing but cannot rule this out. Patient is on 3 mg of pramipexole at night; no history of Parkinson's thatis noted. It appears on chart review that she was on 1.5 mg at night as of a few months ago; unclear when the dosage was increased. Decreased back to 1.5 mgat night on 10/04; reported mild delusions overnight with some improvement from previous. Decreased to 0.75 mg at night on 10/05 and tolerated well. Will continue this dosing moving forward. 2. Acute CVA; recent history of CVA with resultant intracranial hemorrhage ? Neurology followed. Patient had an acute CVA with resultant right intracranial hemorrhage in April 2024. Has been off warfarin since then; wason warfarin for paroxysmal A-fib as noted below. Presented on this admission with worsening confusion with delirium as above. No new motor deficits noted. CT brain unremarkable. However, MRI brain showed an acute right punctate lacunar type infarction in the posterior right centrum. Per neurology, lesion is more consistent with acute ischemic stroke but cannot rule out embolic in setting of paroxysmal A-fib. However, patient wishes to continue with home babyaspirin and will not restart anticoagulation. Per neurology, can consider cardiology evaluation for possible Watchman device but patient noted that she does not believe she was a candidate for this in the recent past. Will continueto treat with home aspirin, statin, Lopressor, Lasix and losartan. 3. Acute on chronic debility with recent fall at home ? PT/OT/case management following. Patient lives at home alone. Was dischargedto SNF at [facility] after recent hospitalization in late August. Therapy scores borderline here; planning for SNF in [facility] on discharge. Medically ready for discharge on 10/07, awaiting pre-CERT. 4. Paroxysmal A-fib ? Per history. Was previously on warfarin but this was discontinued in e to her intracranial hemorrhage as noted above. Has been stable in normal sinus rhythm since admission. Continue home Lopressor and baby aspirin. 5. Chronic back pain ? On home hydrocodone?acetaminophen 7.5?325 mg up to 4 times daily as needed. Patient denies overuse of this medication but there is concern that this could be contributing to her encephalopathy as above. Continue treatment with scheduled Tylenol 1 g every 8 hours here and can consider adding p.o. Dilaudid as needed. Pain has been well-controlled since admission. 6. Restless leg syndrome ? On pramipexole at home. As noted above, had dosage increase from 1.5 to 3 mg at night at some point in the past few months for unclear reason. Notably recommended dosing for RLS is a maximum of 0.75 mg daily. Dosing can be higher for Parkinson's disease but patient has no Parkinson's diagnosis listed. Decreased dosage as noted above. 7. Concern for UTI ? UA with 2+ bacteria but negative leukocyte esterase and negative nitrates. Urine culture growing 80-100,000 Aerococcus. Patient with no UTI symptoms and otherwise noninfectious appearing, will hold on any further antibiotics. 8. Chronic iron deficiency anemia ? Hemoglobin stable at baseline around 10-11 during hospitalization. Continue home iron supplement. DVT prophylaxis: Lovenox CODE STATUS: DNR CCA, DNI Expected disposition: SNF, medically ready for discharge on 10/07, awaiting pre- CERT Total clinical time spent by myself addressing the patient's medical issues, reviewing all the data, and collaborating with patient's care team: 35 minutes. Charges/Coding Visit Charges Inpatient E&M: 57378 Subs Hosp L2 10/08/24 2161 <Electronically signed by Santino Haas > Cosigner Signature (if applicable): CC: ~ Signed [facility] Work Phone: 1(489) 138-858105-29-2025 Progress note Author Santino [facility] Note Date/Time October 07, 2024 12:42 pm [facility] Medical Records Department [address] [place] [address] Progress Note - Hospitalist 10/07/24 1038 MR#: [id number] Acct: [id number] Name: JOYCE SOLOMON Rep #:[id number] : 1935 89 From: Santino kong DO PCP: Dr. Bridget Swenson MD Status :ADM IN Location: [place] [address] Reason for Visit Reason for Visit: Diagnoses Other chronic pain (10/06/24) Unspecified toxic encephalopathy (10/06/24) Unspecified sequelae of cerebral infarction (10/06/24) Dorsalgia, unspecified (10/06/24) Urinary tract infection, site not specified (10/06/24) Adverse effect of unspecified drugs, medicaments and biological substances, initial encounter (10/06/24) Unspecified fall, initial encounter (10/06/24) Patient's noncompliance with other medical treatment and regimen due to unspecified reason (10/06/24) Subjective Subjective Saw patient at bedside this morning. Patient was sitting back comfortably in bedside chair and appeared similar to previous days. States that she did have difficulty sleeping due to restless leg syndrome overnight but has not had any delusions for the past few days. No other new concerns this morning. Objective Data Objective Data Vital Signs: Vital Signs Temp Pulse Resp BP Pulse Ox O2 Del Method 98.5 F 80 15 144/58 H 97 Room Air 10/07/24 08:00 10/07/24 09:04 10/07/24 08:00 10/07/24 08:00 10/07/24 08:00 10/07/24 08:00 Oxygen Delivery Method Room Air Weight: 70.3 kg Body Mass Index (BMI) 30.2 Intake & Output: Intake and Output for Last 24 Hours 10/05/24 10/06/24 10/07/24 23:59 23:59 23:59 Intake Total 650 / 650 Output Total 1900 / 1900 600 / 600 Balance -1250 / -1250 -600 / -600 Medical Nutrition Assessment Dietitian: Malnutrition Criteria Met Start: 10/04/24 15:46 Freq: Status: Active Protocol: Document 10/04/24 15:46 [email or web address] (Rec: 10/04/24 15:46 [id number]) Nutrition Malnutrition Evidence of Yes Malnutrition Exists Malnutrition ( Chronic moderate): Evidenced By Suboptimal Energy Intake (Moderate),Weight Loss (Severe ),Physical Changes (Moderate) Clinical Problem Chronic Disease or Condition Related Malnutrition Etiology related to decreased appetite and oral intakes Signs/Symptoms as evidenced by significant weight loss of 7.4% or 12lb since 09/01/24 weight of 163lb, pt report of poor appetite and oral intakes x 7 months with suspected oral intakes meeting less than 75% of estimated nutrient needs and visual evidence of mild to moderate muscle and fat wasting (temples, occular, interosseous, clavicle, etc.). Status Active Problem Recommendation Dietitian Recommend Regular (NICOLETTE), Gluten Free diet for allergies Recommendations/ and to liberalize the diet to promote oral intakes. Changes Will trial chocolate Magic Cup again with lunch and dinner. Will continue to follow, monitor oral intakes and modify nutrition interventions as needed. Lab / Micro Data 10/06/24 05:16 10/06/24 05:16 Micro: Microbiology 10/03/24 20:30 Urine Catheter - Catheter Urine Culture - Final Aerococcus urinae Rhythm Strip Rhythm Strip: Sinus Rhythm Rate: 88 Ectopy: None Physical Exam Const alert, oriented x3, no apparent distress and average body habitus Constitutional Narrative: Elderly female, mildly fatigued appearing but otherwise sitting up comfortably in bedside chair, conversing normally, in no acute distress. Stable. General Appearance: cooperative and comfortable HEENT normocephalic, head/scalp atraumatic, hearing grossly normal bilaterally, nasal mucous membranes and turbinates normal and moist oral mucous membranes Eyes PERRL, EOMs intact bilaterally and conjunctivae normal Neck full ROM Chest inspection of chest normal Resp normal respiratory effort, normal air movement, no use of accessory muscles and clear to auscultation bilaterally Cardio regular rate, regular rhythm, no murmurs and peripheral pulses 2+ throughout GI normal to inspection, nondistended, normoactive bowel sounds, soft to palpation,non-tender and non-distended Back/Spine normal ROM Extremity normal to inspection, full ROM and no pedal edema Skin no rashes or lesions noted Psych mental status grossly normal Assessment & Plan Assessment/Plan (1) Toxic encephalopathy: QUALIFIERS: Toxic encephalopathy cause: unspecified toxin Qualified Code(s): G92.9 - Unspecified toxic encephalopathy PLAN: Plan Patient is an 89-year-old female who presented to [facility] ED on 10/03/2024 with worsening confusion with weakness. 1. Acute toxic encephalopathy, improving ? Presented from home with worsening confusion with delirium. Lives at home alone. Notably much improved on hospital day 2 and alert and oriented x 3. Highest concern is encephalopathy secondary to high home dosage of pramipexole for RLS. Seems less likely that acute CVA is contributing but cannot rule this out. Patient is on 3 mg of pramipexole at night; no history of Parkinson's thatis noted. It appears on chart review that she was on 1.5 mg at night as of a few months ago; unclear when the dosage was increased. Decreased back to 1.5 mgat night on 10/04; reported mild delusions overnight with some improvement from previous. Decreased to 0.75 mg at night on 10/05 and tolerated well. Will continue this dosing moving forward. 2. Acute CVA; recent history of CVA with resultant intracranial hemorrhage ? Neurology evaluated. Patient had an acute CVA with resultant right intracranial hemorrhage in April 2024. Has been off warfarin since then; wason warfarin for paroxysmal A-fib as noted below. Presented on this admission with worsening confusion with delirium as above. No new motor deficits noted. CT brain unremarkable. However, MRI brain showed an acute right punctate lacunar type infarction in the posterior right centrum. Per neurology, lesion is more consistent with acute ischemic stroke but cannot rule out embolic in setting of paroxysmal A-fib. However, patient wishes to continue with home babyaspirin and will not restart anticoagulation. Per neurology, can consider cardiology evaluation for possible Watchman device but patient noted that she does not believe she was a candidate for this in the recent past. Will continueto treat with home aspirin, statin, Lopressor, Lasix and losartan. 3. Acute on chronic debility with recent fall at home ? PT/OT/case management following. Patient lives at home alone. Was dischargedto SNF at [facility] after recent hospitalization in late August. Therapy scores borderline here; planning for SNF in [facility] on discharge. Medically ready for discharge on 10/07, awaiting pre-CERT. 4. Paroxysmal A-fib ? Per history. Was previously on warfarin but this was discontinued in e to her intracranial hemorrhage as noted above. Has been stable in normal sinus rhythm since admission. Continue home Lopressor and baby aspirin. 5. Chronic back pain ? On home hydrocodone?acetaminophen 7.5?325 mg up to 4 times daily as needed. Patient denies overuse of this medication but there is concern that this could be contributing to her encephalopathy as above. Continue treatment with scheduled Tylenol 1 g every 8 hours here and can consider adding p.o. Dilaudid as needed. Pain has been well-controlled since admission. 6. Restless leg syndrome ? On pramipexole at home. As noted above, had dosage increase from 1.5 to 3 mg at night at some point in the past few months for unclear reason. Notably recommended dosing for RLS is a maximum of 0.75 mg daily. Dosing can be higher for Parkinson's disease but patient has no Parkinson's diagnosis listed. Decreased dosage as noted above. 7. Concern for UTI ? UA with 2+ bacteria but negative leukocyte esterase and negative nitrates. Urine culture growing 80-100,000 Aerococcus. Patient with no UTI symptoms and otherwise noninfectious appearing, will hold on any further antibiotics. 8. Chronic iron deficiency anemia ? Hemoglobin stable at baseline around 10-11 during hospitalization. Continue home iron supplement. DVT prophylaxis: Lovenox CODE STATUS: DNR CCA, DNI Expected disposition: SNF, medically ready for discharge on 10/07, awaiting pre- CERT Total clinical time spent by myself addressing the patient's medical issues, reviewing all the data, and collaborating with patient's care team: 35 minutes. Charges/Coding Visit Charges Inpatient E&M: 67906 Subs Hosp L2 10/07/24 1242 <Electronically signed by Santino Haas DO> Cosigner Signature (if applicable): CC: ~ Signed [facility] Work Phone: [phone] 799-880405-28-2025 Progress note Author Santino Haas [facility] Note Date/Time October 06, 2024 2:27p m [facility] Medical Records Department [address] [place] [address] Progress Note - Hospitalist 10/06/24 1354 MR#: [id number] Acct: [id number] Name: JOYCE SOLOMON Rep #:[id number] : 1935 89 From: Santino kong DO PCP: Dr. Bridget Swenson MD Status :ADM CRISTIANA Location: [place] [address] Reason for Visit Reason for Visit: Diagnoses Other chronic pain (10/04/24) Unspecified toxic encephalopathy (10/04/24) Unspecified sequelae of cerebral infarction (10/04/24) Dorsalgia, unspecified (10/04/24) Urinary tract infection, site not specified (10/04/24) Adverse effect of unspecified drugs, medicaments and biological substances, initial encounter (10/04/24) Unspecified fall, initial encounter (10/04/24) Patient's noncompliance with other medical treatment and regimen due to unspecified reason (10/04/24) Subjective Subjective Saw patient at bedside this morning. Patient continued to appear fatigued but otherwise appears stable from yesterday. She reported sleeping well overnight and did not have any issues with restless legs. She denied any delusions overnight. Continues to feel generally weaker than her baseline but denies any focal weakness. No other new concerns today. Objective Data Objective Data Vital Signs: Vital Signs Temp Pulse Resp BP Pulse Ox O2 Del Method 97.5 F L 63 18 188/56 H 97 Room Air 10/06/24 08:16 10/06/24 09:28 10/06/24 08:16 10/06/24 08:18 10/06/24 08:16 10/06/24 08:30 Oxygen Delivery Method Room Air Weight: 72.8 kg Body Mass Index (BMI) 31.3 Intake & Output: Intake and Output for Last 24 Hours 10/04/24 10/05/24 10/06/24 23:59 23:59 23:59 Intake Total 1880 / 1880 650 / 650 Output Total 350 / 550 1900 / 1900 600 / 600 Balance 1530 / 1330 -1250 / -1250 -600 / -600 Medical Nutrition Assessment Dietitian: Malnutrition Criteria Met Start: 10/04/24 15:46 Freq: Status: Active Protocol: Document 10/04/24 15:46 [facility] (Rec: 10/04/24 15:46 [facility] [id number]) Nutrition Malnutrition Evidence of Yes Malnutrition Exists Malnutrition ( Chronic moderate): Evidenced By Suboptimal Energy Intake (Moderate),Weight Loss (Severe ),Physical Changes (Moderate) Clinical Problem Chronic Disease or Condition Related Malnutrition Etiology related to decreased appetite and oral intakes Signs/Symptoms as evidenced by significant weight loss of 7.4% or 12lb since 09/01/24 weight of 163lb, pt report of poor appetite and oral intakes x 7 months with suspected oral intakes meeting less than 75% of estimated nutrient needs and visual evidence of mild to moderate muscle and fat wasting (temples, occular, interosseous, clavicle, etc.). Status Active Problem Recommendation Dietitian Recommend Regular (NICOLETTE), Gluten Free diet for allergies Recommendations/ and to liberalize the diet to promote oral intakes. Changes Will trial chocolate Magic Cup again with lunch and dinner. Will continue to follow, monitor oral intakes and modify nutrition interventions as needed. Lab / Micro Data 10/06/24 05:16 10/06/24 05:16 Labs: Laboratory Results - last 24 hr 10/06/24 05:16: WBC 7.6, RBC 3.49 L, Hgb 10.2 L, Hct 32.2 L, MCV 92.3, MCH 29.2,MCHC 31.7 L, RDW Std Deviation 45.1 H, RDW Coeff of Tiffani 13.3, Plt Count 329, MPV9.5, Sodium 134, Potassium 3.9, Chloride 98, Carbon Dioxide 24.8, Anion Gap 11, BUN 18, Creatinine 0.77, Estim Creat Clear Calc 43.29 L, Est GFR (MDRD) Non-Af 74, BUN/Creatinine Ratio 24.0 H, Glucose 98, Calcium 7.9 Micro: Microbiology 10/03/24 20:30 Urine Catheter - Catheter Urine Culture - Final Aerococcus urinae Rhythm Strip Rhythm Strip: Sinus Rhythm Rate: 88 Ectopy: None Physical Exam Const alert, oriented x3, no apparent distress and average body habitus Constitutional Narrative: Elderly female, mildly fatigued appearing but otherwise sitting up comfortably in bedside chair, conversing normally, in no acute distress. Stable. General Appearance: cooperative and comfortable HEENT normocephalic, head/scalp atraumatic, hearing grossly normal bilaterally, nasal mucous membranes and turbinates normal and moist oral mucous membranes Eyes PERRL, EOMs intact bilaterally and conjunctivae normal Neck full ROM Chest inspection of chest normal Resp normal respiratory effort, normal air movement, no use of accessory muscles and clear to auscultation bilaterally Cardio regular rate, regular rhythm, no murmurs and peripheral pulses 2+ throughout GI normal to inspection, nondistended, normoactive bowel sounds, soft to palpation,non-tender and non-distended Back/Spine normal ROM Extremity normal to inspection, full ROM and no pedal edema Skin no rashes or lesions noted Psych mental status grossly normal Assessment & Plan Assessment/Plan (1) Toxic encephalopathy: QUALIFIERS: Toxic encephalopathy cause: unspecified toxin Qualified Code(s): G92.9 - Unspecified toxic encephalopathy PLAN: Plan Patient is an 89-year-old female who presented to [facility] ED on 10/03/2024 with worsening confusion with weakness. 1. Acute toxic encephalopathy, improving ? Presented from home with worsening confusion with delirium. Lives at home alone. Notably much improved on hospital day 2 and alert and oriented x 3. Highest concern is encephalopathy secondary to high home dosage of pramipexole for RLS. Seems less likely that acute CVA is contributing but cannot rule this out. Patient is on 3 mg of pramipexole at night; no history of Parkinson's thatis noted. It appears on chart review that she was on 1.5 mg at night as of a few months ago; unclear when the dosage was increased. Decreased back to 1.5 mgat night on 10/04; reported mild delusions overnight with some improvement from previous. Decreased to 0.75 mg at night on 10/05 and tolerated well. Will continue this dosing moving forward. 2. Acute CVA; recent history of CVA with resultant intracranial hemorrhage ? Neurology evaluated. Patient had an acute CVA with resultant right intracranial hemorrhage in April 2024. Has been off warfarin since then; wason warfarin for paroxysmal A-fib as noted below. Presented on this admission with worsening confusion with delirium as above. No new motor deficits noted. CT brain unremarkable. However, MRI brain showed an acute right punctate lacunar type infarction in the posterior right centrum. Per neurology, lesion is more consistent with acute ischemic stroke but cannot rule out embolic in setting of paroxysmal A-fib. However, patient wishes to continue with home babyaspirin and will not restart anticoagulation. Per neurology, can consider cardiology evaluation for possible Watchman device but patient noted that she does not believe she was a candidate for this in the recent past. Will continueto treat with home aspirin, statin, Lopressor, Lasix and losartan. 3. Acute on chronic debility with recent fall at home ? PT/OT/case management following. Patient lives at home alone. Was dischargedto SNF at [facility] after recent hospitalization in late August. Therapy scores borderline here; planning for either home with home health care or SNF on discharge, discussions ongoing with patient and family. 4. Paroxysmal A-fib ? Per history. Was previously on warfarin but this was discontinued in e to her intracranial hemorrhage as noted above. Has been stable in normal sinus rhythm since admission. Continue home Lopressor and baby aspirin. 5. Chronic back pain ? On home hydrocodone?acetaminophen 7.5?325 mg up to 4 times daily as needed. Patient denies overuse of this medication but there is concern that this could be contributing to her encephalopathy as above. Continue treatment with scheduled Tylenol 1 g every 8 hours here and can consider adding p.o. Dilaudid as needed. Pain has been well-controlled since admission. 6. Restless leg syndrome ? On pramipexole at home. As noted above, had dosage increase from 1.5 to 3 mg at night at some point in the past few months for unclear reason. Notably recommended dosing for RLS is a maximum of 0.75 mg daily. Dosing can be higher for Parkinson's disease but patient has no Parkinson's diagnosis listed. Decreased dosage as noted above. 7. Concern for UTI ? UA with 2+ bacteria but negative leukocyte esterase and negative nitrates. Urine culture growing 80-100,000 Aerococcus. Patient with no UTI symptoms and otherwise noninfectious appearing, will hold on any further antibiotics. 8. Chronic iron deficiency anemia ? Hemoglobin stable at baseline around 10-11 during hospitalization. Continue home iron supplement. DVT prophylaxis: Lovenox CODE STATUS: DNR CCA, DNI Expected disposition: [facility] with [facility] versus SNF, 1 to 2 days *Patient notably was admitted under observation status. However, given her acute stroke as above and persistent encephalopathy, will transition patient to inpatient status at this time. Total clinical time spent by myself addressing the patient's medical issues, reviewing all the data, and collaborating with patient's care team: 35 minutes. Charges/Coding Visit Charges Inpatient E&M: 79750 Subs Hosp L2 10/06/24 1427 <Electronically signed by Santino Haas DO> Cosigner Signature (if applicable): CC: ~ Signed [facility] Work Phone: 1(800) 295-884405-27-2025 Progress note Author Santino Haas [facility] Note Date/Time October 05, 2024 1:12p m [facility] Records Department [address] [place] [address] Progress Note - Hospitalist 10/05/24 1308 MR#: [id number] Acct: [id number] Name: JOYCE SOLOMON Rep #:[id number] : 1935 89 From: Santino kong DO PCP: Dr. Bridget Swenson MD Status :ADM CRISTIANA Location: [place] [address] Reason for Visit Reason for Visit: Diagnoses Other chronic pain (10/04/24) Unspecified toxic encephalopathy (10/04/24) Unspecified sequelae of cerebral infarction (10/04/24) Dorsalgia, unspecified (10/04/24) Urinary tract infection, site not specified (10/04/24) Adverse effect of unspecified drugs, medicaments and biological substances, initial encounter (10/04/24) Unspecified fall, initial encounter (10/04/24) Patient's noncompliance with other medical treatment and regimen due to unspecified reason (10/04/24) Subjective Subjective Saw patient at bedside this morning. Patient was sitting up comfortably in bedside chair and appeared similar to yesterday. Remained alert and oriented x 3. Did state that she had some delusions overnight with some improvement in theseverity from previous nights. Denied any weakness or numbness/tingling in her upper or lower extremities. Does note that she feels generally weaker than her normal. No other new concerns today. Objective Data Objective Data Vital Signs: Vital Signs Temp Pulse Resp BP Pulse Ox O2 Del Method 97.4 F L 85 14 148/59 H 93 Room Air 10/05/24 10:10 10/05/24 10:13 10/05/24 10:10 10/05/24 10:13 10/05/24 10:10 10/05/24 10:10 Oxygen Delivery Method Room Air Weight: 73.4 kg Body Mass Index (BMI) 31.6 Intake & Output: Intake and Output for Last 24 Hours 10/03/24 10/04/24 10/05/24 23:59 23:59 23:59 Intake Total 120 / 120 1880 / 1880 Output Total 240 / 240 350 / 550 600 / 600 Balance -120 / -120 1530 / 1330 -600 / -600 Medical Nutrition Assessment Dietitian: Malnutrition Criteria Met Start: 10/04/24 15:46 Freq: Status: Active Protocol: Document 10/04/24 15:46 [facility] (Rec: 10/04/24 15:46 [facility] [id number]) Nutrition Malnutrition Evidence of Yes Malnutrition Exists Malnutrition ( Chronic moderate): Evidenced By Suboptimal Energy Intake (Moderate),Weight Loss (Severe ),Physical Changes (Moderate) Clinical Problem Chronic Disease or Condition Related Malnutrition Etiology related to decreased appetite and oral intakes Signs/Symptoms as evidenced by significant weight loss of 7.4% or 12lb since 09/01/24 weight of 163lb, pt report of poor appetite and oral intakes x 7 months with suspected oral intakes meeting less than 75% of estimated nutrient needs and visual evidence of mild to moderate muscle and fat wasting (temples, occular, interosseous, clavicle, etc.). Status Active Problem Recommendation Dietitian Recommend Regular (NICOLETTE), Gluten Free diet for allergies Recommendations/ and to liberalize the diet to promote oral intakes. Changes Will trial chocolate Magic Cup again with lunch and dinner. Will continue to follow, monitor oral intakes and modify nutrition interventions as needed. Lab / Micro Data 10/04/24 04:35 10/04/24 04:35 Labs: Laboratory Results - last 24 hr 10/05/24 07:07: Triglycerides 78, Cholesterol 173, LDL Cholesterol, Calc 49, VLDL Cholesterol 16, HDL Cholesterol 108, Cholesterol/HDL Ratio 1.60 Micro: Microbiology 10/03/24 20:30 Urine Catheter - Catheter Urine Culture - Final Aerococcus urinae Rhythm Strip Rhythm Strip: Sinus Rhythm Rate: 88 Ectopy: None Physical Exam Const alert, oriented x3, no apparent distress and average body habitus Constitutional Narrative: Elderly female, mildly fatigued appearing but otherwise sitting up comfortably in bedside chair, conversing normally, in no acute distress. Stable. General Appearance: cooperative and comfortable HEENT normocephalic, head/scalp atraumatic, hearing grossly normal bilaterally, nasal mucous membranes and turbinates normal and moist oral mucous membranes Eyes PERRL, EOMs intact bilaterally and conjunctivae normal Neck full ROM Chest inspection of chest normal Resp normal respiratory effort, normal air movement, no use of accessory muscles and clear to auscultation bilaterally Cardio regular rate, regular rhythm, no murmurs and peripheral pulses 2+ throughout GI normal to inspection, nondistended, normoactive bowel sounds, soft to palpation,non-tender and non-distended Back/Spine normal ROM Extremity normal to inspection, full ROM and no pedal edema Skin no rashes or lesions noted Psych mental status grossly normal Assessment & Plan Assessment/Plan (1) Toxic encephalopathy: QUALIFIERS: Toxic encephalopathy cause: unspecified toxin Qualified Code(s): G92.9 - Unspecified toxic encephalopathy PLAN: Plan Patient is an 89-year-old female who presented to [facility] ED on 10/03/2024 with worsening confusion with weakness. 1. Acute toxic encephalopathy, improving ? Presented from home with worsening confusion with delirium. Lives at home alone. Notably much improved on hospital day 2 and alert and oriented x 3. Highest concern is encephalopathy secondary to high home dosage of pramipexole for RLS. Seems less likely that acute CVA is contributing but cannot rule this out. Patient is on 3 mg of pramipexole at night; no history of Parkinson's thatis noted. It appears on chart review that she was on 1.5 mg at night as of a few months ago; unclear when the dosage was increased. Decreased back to 1.5 mgat night on 10/04; reported mild delusions overnight with some improvement from previous. Will decrease to 0.75 mg at night and continue to monitor closely. 2. Acute CVA; history of CVA with residual left-sided deficits, hypertension, hyperlipidemia ? Neurology consulted. Presented with worsening confusion with delirium as above. No new motor deficits noted. CT brain unremarkable. However, MRI brainshowed an acute right punctate lacunar type infarction in the posterior right centrum. May have contributed to symptoms as above but this is unclear. Had borderline therapy scores as noted below but this is at her baseline. Appreciate neurology recommendations. Will continue to treat with home aspirin,statin, Lopressor, Lasix and losartan at this time. 3. Acute on chronic debility with recent fall at home ? PT/OT/case management following. Patient lives at home alone. Was dischargedto SNF at [facility] after recent hospitalization in late August. Therapy scores borderline here; will likely need either home with home health care versus SNF on discharge. 4. Chronic back pain ? On home hydrocodone?acetaminophen 7.5?325 mg up to 4 times daily as needed. Patient denies overuse of this medication but there is concern that this could be contributing to her encephalopathy as above. Will treat with scheduled Tylenol 1 g every 8 hours here and can consider adding p.o. Dilaudid as needed. Pain has been well-controlled since admission. 5. Restless leg syndrome ? On pramipexole at home. As noted above, had dosage increase from 1.5 to 3 mg at night at some point in the past few months for unclear reason. Notably recommended dosing for RLS is a maximum of 0.75 mg daily. Dosing can be higher for Parkinson's disease but patient has no Parkinson's diagnosis listed. Decreasing dosage as noted above. 6. Concern for UTI ? UA with 2+ bacteria but negative leukocyte esterase and negative nitrates. Urine culture growing 80-100,000 Aerococcus. Patient with no UTI symptoms and otherwise noninfectious appearing, will hold on any further antibiotics. 7. Chronic iron deficiency anemia ? Hemoglobin stable at baseline around 10-11 during hospitalization. Continue home iron supplement. DVT prophylaxis: Lovenox CODE STATUS: DNR CCA, DNI Expected disposition: Likely home with [facility], 1 to 2 days Total clinical time spent by myself addressing the patient's medical issues, reviewing all the data, and collaborating with patient's care team: 35 minutes. Charges/Coding Visit Charges Inpatient E&M: 33071 Subs Hosp L2 10/05/24 1312 <Electronically signed by Santino Haas DO> Cosigner Signature (if applicable): CC: ~ Signed [facility] Work Phone: [phone] Consult note Author Robert Castillo [facility] Note Date/Time October 05, 2024 1:05p m [facility] Records Department [address] [place] [address] Consultation - Neurology 10/05/24 1248 MR#: [id number] Acct: [id number] Name: JOYCE SOLOMON Rep #:[id number] : 1935 89 From: Robert Castillo MD PCP: Dr. Bridget Swenson MD Status :ADM CRISTIANA Location: [place] [address] Assessment and Plan: Neuro Assessment/Plan JOYCE SOLOMON is a 89 F with a past medical history of HTN, HLD, NEL on CPAP, COPD, R ICH in 05/04, pafib (was on warfarin that was stopped following her ICH in 2023), hx of ?CAA, being evaluated by Teleneurology for punctate acute infarct in the posterior right centrum. Patient is outside the window for lytics Diagnosis: Acute ischemic stroke Recommendations: 1. Patient has been off Warfarin since 04/2024 following her R ICH. I discussed the risks of having another strokes in the future if she stays off AC with her hx of pAfib. She was very nervous to resume AC which is understandable given herhx of ICH. I recommend continuation of ASA for secondary stroke prevention. Cardiology evaluation for possible Watchman if she is interested 2. Statin for secondary stroke prevention 3. CTA was done in August 2024, no LVO or significant arterial stenosis or malformation 4. TTE was reviewed from August 2024, EF of 55%, no regional wall motion abnormalities of the LV 5. PT/OT/PLASTICS AND COMPOSITES INSPECTOR evaluation 6. Normotension is the goal 7. Stroke education and risk factors modification I personally attended this patient and spent a total time of 55 minutes evaluating this patient including clinical assessment, review of chart, medical history imaging, and determining appropriate treatment and workup. HPI Consult Data Date of Consult: 10/05/24 HPI Narrative HPI Narrative: JOYCE SOLOMON, is a 89 F with a hx of HTN, HLD, NEL on CPAP, COPD, R ICH in 05/04, pafib (was on warfarin that was stopped following her ICH in 2023), hx of ?CAA, prior admission in August 2023 for worsening L sided weakness (MRI was negative for acute stroke at that time) who presented with worsening confusion. Brain MRIshowed punctate acute infarct in the posterior right centrum. CTA in August 2023 with no significant arterial stenosis or LVO. Telestroke was consulted for further recommendations. [facility] Medical History (Updated 10/04/24 @ 03:17 by Sweta Christensen) Chronic pain BiPAP (biphasic positive airway pressure) dependence Aphasia History of hemorrhagic cerebrovascular accident (CVA) with residual deficit Daytime somnolence Elevated PTHrP level Venous insufficiency of both lower extremities Cerebral amyloid angiopathy Hypothyroidism Hyperlipidemia Essential (primary) hypertension Hypertension Lumbar compression fracture Closed compression fracture of L2 vertebra COPD (chronic obstructive pulmonary disease) Wrist fracture, right Shoulder fracture, left Iron deficiency anemia Osteoporosis Vitamin D deficiency Hiatal hernia Restless legs History of stress test HTN (hypertension) Scarlet fever Sleep apnea Pulmonary hypertension Secondary pulmonary arterial hypertension Paroxysmal atrial fibrillation Incomplete right bundle branch block Obstructive sleep apnea Obesity Essential (primary) hypertension Multiple fractures of ribs, left side, initial encounter for closed fracture Hypertensive emergency Pneumonia Limb weakness Difficulty balancing Thyroid disease Migraines Fatigue Arthritis Community acquired pneumonia Home Medications ?Medication ?Instructions ?Recorded ?Last Taken ?Type denosumab 60 mg/mL subcutaneous 60 mg subcut [id number] osteoporosis 10/08/19 08/24/21 History syringe (Prolia) aspirin 81 mg chewable tablet 1 tab PO DAILY Heart hea lth 05/16/24 05/30/24 History acetaminophen 500 mg tablet 1,000 mg (2 x 500 mg) PO Q 8 #0 tabs 07/20/24 Unknown Rx losartan 100 mg tablet 100 mg PO DAILY #0 tabs 07/10 06/05 Unknown Rx metoprolol tartrate 100 mg tablet 100 mg PO BID 30 day s #60 tabs 07/20/24 Unknown Rx ascorbic acid (vitamin C) 500 mg 500 mg PO DAILY suppl ement 08/30/24 Unknown History tablet (C-500) cholecalciferol (vitamin D3) 25 2,000 unit PO DAILY srivastava pplement 08/30/24 Unknown History mcg (1,000 unit) capsule magnesium oxide 420 mg tablet 420 mg PO DAILY 08/30/24 Unknown History pramipexole 1 mg tablet 3 mg (3 x 1 mg) PO QHS 30 da ys #90 08/31/24 Unknown Rx tabs rosuvastatin 20 mg tablet 20 mg PO QHS 1 month #30 tab s 08/31/24 Unknown Rx amlodipine 10 mg tablet 10 mg PO DAILY #0 tabs 09/03 Unknown Rx nitrofurantoin 100 mg PO Q12H 5 days #10 ca ps 10/01/24 Unknown Rx monohydrate/macrocrystals 100 mg capsule (Macrobid) docusate sodium 100 mg capsule 100 mg PO DAILY 5 Unknown History (Dulcolax Stool Softener (docusate)) ferrous sulfate 325 mg (65 mg 325 mg PO DAILY 10/03/24 Unknown History iron) tablet (iron) furosemide 40 mg tablet (Lasix) 40 mg PO DAILY 5 Unknown History hydrocodone 7.5 mg-acetaminophen 1 tab PO 4X/DAY PRN P RN pain 10/03/24 Unknown History 325 mg tablet Allergy/AdvReac Type Severity Reaction Status Date / Time cefazolin (From Ancef) Allergy Severe Swelling Verified 10/03/24 17:47 silk Allergy Intermediate itching Verified 10/03/24 17:47 duloxetine (From Cymbalta) Allergy Unknown Hives Verified 10/03/24 17:47 shellfish derived Allergy Unknown Other Verified 10/03/24 17:47 beet (Beet) Allergy Hives Verified 10/03/24 17:47 cantaloupe Allergy Food Verified 10/03/24 17:47 Allergy eggplant Allergy Hives Verified 10/03/24 17:47 Food Allergies: Uncoded Allergy Itching Verified 10/03/24 17:47 levofloxacin (From Levaquin) Allergy Unknown Verified 10/03/24 17:47 mold Allergy NEEDS Verified 10/03/24 17:47 FOLLOW-UP Penicillins Allergy Unknown Verified 10/03/24 17:47 tomato Allergy Food Verified 10/03/24 17:47 Allergy wheat Allergy Hives Verified 10/03/24 17:47 gabapentin (From Neurontin) AdvReac Other Verified 10/03/24 17:47 meloxicam (From Mobic) AdvReac Other Verified 10/03/24 17:47 oxycodone (From OxyIR) AdvReac Nausea Verified 10/03/24 17:47 risedronate sodium (From AdvReac Other Verified 10/03/24 17:47 Actonel) Family History Other Cancer Diabetes Heart disease Surgical History H/O radiofrequency ablation (RFA) of nerve of lumbar spine History of kyphoplasty Hx of tonsillectomy H/O partial thyroidectomy History of appendectomy History of cholecystectomy Hx of bilateral cataract extraction History of thyroid surgery Hx of appendectomy History of tonsillectomy Hx of cholecystectomy History of thymectomy History of parathyroidectomy Social History adopted: No household members: none housing: condominium number of children: 2 current occupational status: retired current occupational exposures/hazards: No pets and animals: No leisure activities: reading and other history of recent travel: Yes (concert in [place]) Smoking Status: Never smoker alcohol intake: never substance use type: does not use caffeine: No Vital Signs Vital Signs Vital Signs: 10/04/24 13:45 10/04/24 14:00 10/04/24 16:14 Temperature 97.9 F 98.8 F Temperature Source Oral Oral Pulse Rate 84 81 Respiratory Rate 16 16 Respiratory Effort Normal Non-Labored Respiratory Depth Normal Respiratory Pattern Normal Blood Pressure 142/47 H 145/49 H Blood Pressure Mean 78 81 Pulse Ox 100 94 Oxygen Delivery Method Room Air Room Air Room Air 10/04/24 19:56 10/04/24 20:00 10/04/24 22:30 Temperature 97.8 F Temperature Source Temporal Pulse Rate 88 Respiratory Rate 16 Respiratory Effort Normal Non-Labored Respiratory Depth Normal Respiratory Pattern Normal Blood Pressure 160/52 H Blood Pressure Mean 88 Pulse Ox 98 Oxygen Delivery Method Room Air Room Air Room Air 10/05/24 03:30 10/05/24 03:33 10/05/24 10:00 Temperature 97.5 F L Temperature Source Temporal Pulse Rate 80 Respiratory Rate 16 Respiratory Effort Normal Non-Labored Normal Non-Labored Respiratory Depth Normal Normal Respiratory Pattern Normal Normal Blood Pressure 150/90 H Blood Pressure Mean 110 Pulse Ox 94 Oxygen Delivery Method Room Air Room Air Room Air 10/05/24 10:10 10/05/24 10:13 Temperature 97.4 F L Temperature Source Temporal Pulse Rate 85 85 Respiratory Rate 14 Respiratory Effort Respiratory Depth Respiratory Pattern Blood Pressure 148/59 H 148/59 H Blood Pressure Mean 88 Pulse Ox 93 Oxygen Delivery Method Room Air Weight Weight: 73.4 kg Body Mass Index (BMI) 31.6 Physical Exam Narrative Patient is awake and alert, follows commands, hard of hearing, oriented x3, no clear drifts on my exam. Sensation intact to LT, no aphasia, no dysmetria Medical Records Data Medical Nutrition Assessment Dietitian: Malnutrition Criteria Met Start: 10/04/24 15:46 Freq: Status: Active Protocol: Document 10/04/24 15:46 VIJAYA (Rec: 10/04/24 15:46 [facility] [id number]) Nutrition Malnutrition Evidence of Yes Malnutrition Exists Malnutrition ( Chronic moderate): Evidenced By Suboptimal Energy Intake (Moderate),Weight Loss (Severe ),Physical Changes (Moderate) Clinical Problem Chronic Disease or Condition Related Malnutrition Etiology related to decreased appetite and oral intakes Signs/Symptoms as evidenced by significant weight loss of 7.4% or 12lb since 09/01/24 weight of 163lb, pt report of poor appetite and oral intakes x 7 months with suspected oral intakes meeting less than 75% of estimated nutrient needs and visual evidence of mild to moderate muscle and fat wasting (temples, occular, interosseous, clavicle, etc.). Status Active Problem Recommendation Dietitian Recommend Regular (NICOLETTE), Gluten Free diet for allergies Recommendations/ and to liberalize the diet to promote oral intakes. Changes Will trial chocolate Magic Cup again with lunch and dinner. Will continue to follow, monitor oral intakes and modify nutrition interventions as needed. Lab / Micro Data 10/04/24 04:35 10/04/24 04:35 Labs: Laboratory Results - last 24 hr 10/05/24 07:07: Triglycerides 78, Cholesterol 173, LDL Cholesterol, Calc 49, VLDL Cholesterol 16, HDL Cholesterol 108, Cholesterol/HDL Ratio 1.60 Micro: Microbiology 10/03/24 20:30 Urine Catheter - Catheter Urine Culture - Final Aerococcus urinae Rhythm Strip Rhythm Strip: Sinus Rhythm Rate: 88 Ectopy: None Active Medications Active Medications Active Medications: Current Medications Generic Name Dose Route Start Last Admin Trade Name Freq PRN Reason Stop Dose Admin Acetaminophen 1,000 mg 10/04/24 06:00 10/05/24 06:08 Acetaminophen 500 Mg Tablet PO 1,000 mg Q8 BATSHEVA Administration Al Hydroxide/Mg Hydroxide 30 ml 10/04/24 02:53 Mag Hydrox/Al Hydrox/Simeth 30 Ml Udc PO Q6H PRN PRN Gastric Burning Ascorbic Acid 500 mg 10/04/24 10:00 10/05/24 10:14 Ascorbic Acid 500 Mg Tablet PO 500 mg DAILY BATSHEVA Administration Aspirin 81 mg 10/04/24 11:00 10/05/24 10:12 Aspirin 81 Mg Tab.Chew PO 81 mg DAILYCM BATSHEVA Administration Atorvastatin Calcium 40 mg 10/04/24 22:00 10/04/24 22:37 Atorvastatin Calcium 40 Mg Tablet PO 40 mg QHS BATSHEVA Administration Cholecalciferol 50 mcg 10/04/24 10:00 10/05/24 10:14 Cholecalciferol (Vit D3) 25 Mcg Tablet (1,000 Units) PO 50 mcg DAILY BATSHEVA Administration Docusate Sodium 100 mg 10/04/24 10:00 10/05/24 10:13 Docusate Sodium 100 Mg Capsule PO 100 mg DAILY BATSHEVA Administration Ferrous Sulfate 325 mg 10/04/24 12:00 10/04/24 11:40 Ferrous Sulfate 325 Mg Tablet PO 325 mg DAILY@1200 BATSHEVA Administration Furosemide 40 mg 10/05/24 10:00 10/05/24 10:13 Furosemide 40 Mg Tablet PO 40 mg DAILY BATSHEVA Administration Protocol Sodium Chloride 250 mls @ 15 mls/hr 10/04/24 02:54 IV .[id number] PRN Saline Flush Sodium Chloride 250 mls @ 15 mls/hr 10/04/24 02:54 IV .[id number] PRN Additional IVPB Infusion Losartan Potassium 100 mg 10/05/24 10:00 10/05/24 10:13 Losartan Potassium 100 Mg Tablet PO 100 mg DAILY BATSHEVA Administration Protocol Magnesium Chloride 128 mg 10/04/24 10:00 10/05/24 10:14 Magnesium Chloride 64 Mg Delay Rel.Tablet PO 128 mg DAILY BATSHEVA Administration Melatonin 3 mg 10/04/24 02:53 10/04/24 22:38 Melatonin 3 Mg Tablet PO 3 mg QHS PRN PRN Administration INSOMNIA Metoprolol Tartrate 100 mg 10/05/24 10:00 10/05/24 10:13 Metoprolol Tartrate 100 Mg Tablet PO 100 mg BID BATSHEVA Administration Protocol Ondansetron HCl 4 mg 10/04/24 02:53 Ondansetron 4 Mg/2 Ml Vial IV Q8H PRN PRN NAUSEA/VOMITING Ondansetron HCl 4 mg 10/04/24 21:52 Ondansetron Odt 4 Mg Tablet PO Q8H PRN PRN NAUSEA/VOMITING Pramipexole Dihydrochloride 0.75 mg 10/05/24 22:00 Pramipexole Di-Hcl 0.25 Mg Tablet PO QHS BATSHEVA Sodium Chloride 10 - 40 ml 10/04/24 02:54 0.9% Saline Lock 10 Ml Syringe IV UD PRN SALINE FLUSH NIHSS NIHSS 1a. Level of Consciousness: 0 - Alert; keenly responsive 1b. LOC Questions: 0 - Answers BOTH questions correctly 1c. LOC Commands: 0 - Performs BOTH tasks correctly 2. Best Gaze: 0 - Normal 3. Visual: 0 - No visual loss 4. Facial Palsy: 0 - Normal symmetrical movements 5a. Left Arm: 0 - No drift; arm holds 90 (or 45) degrees for full 10 seconds 5b. Right Arm: 0 - No drift; arm holds 90 (or 45) degrees for full 10 seconds 6a. Left Le - No drift; leg holds 30-degree position for full 5 seconds 6b. Right Le - No drift; leg holds 30-degree position for full 5 seconds 7. Limb Ataxia: 0 - Absent 8. Sensory: 0 - Normal; no sensory loss 9. Best Language: 0 - No aphasia; normal 10. Dysarthria: 0 - Normal 11. Extinction and Inattention: 0 - No abnormality Total: 0 10/05/24 1305 <Electronically signed by Robert Castillo MD> Cosigner Signature (if applicable): CC: Dr. Bridget Swenson MD~ Signed [facility] Work Phone: [phone]) 315-496805-26-2025 Progress note Author [facility] Note Date/Time October 04, 2024 1:56p [facility] Medical Records Department [address] [place] [address] Progress Note - Hospitalist 10/04/24 1035 MR#: [id number] Acct: [id number] Name: JOYCE SOLOMON Rep #:[id number] : 1935 89 From: Santino Ybarra cari SIMMONS PCP: Dr. Bridget Swenson MD Status :ADM CRISTIANA Location: [place] [address] Reason for Visit Reason for Visit: Diagnoses Other chronic pain (10/04/24) Unspecified toxic encephalopathy (10/04/24) Unspecified sequelae of cerebral infarction (10/04/24) Dorsalgia, unspecified (10/04/24) Urinary tract infection, site not specified (10/04/24) Adverse effect of unspecified drugs, medicaments and biological substances, initial encounter (10/04/24) Unspecified fall, initial encounter (10/04/24) Patient's noncompliance with other medical treatment and regimen due to unspecified reason (10/04/24) Subjective Subjective Saw patient at bedside this morning. Patient was alert and oriented x 3 for me and was answering questions appropriately. She was able to tell me that she wasin the hospital because she has been intermittently more confused over the past week or so. For me that she lives at home alone. States that she has chronic low right back pain but has only been taking opiates 1-2 times daily for this and has never taken them 4 times in a day. She does report feeling that her confusion appears to be worse at night. No other new concerns today. Objective Data Objective Data Vital Signs: Vital Signs Temp Pulse Resp BP Pulse Ox O2 Del Method 98.6 F 92 18 149/42 H 100 Room Air 10/04/24 09:53 10/04/24 09:53 10/04/24 09:53 10/04/24 09:53 10/04/24 09:53 10/04/24 09:53 Oxygen Delivery Method Room Air Weight: 68.5 kg Body Mass Index (BMI) 29.5 Intake & Output: Intake and Output for Last 24 Hours 10/02/24 10/03/24 10/04/24 23:59 23:59 23:59 Intake Total 120 / 120 Output Total 240 / 240 Balance -120 / -120 Lab / Micro Data 10/04/24 04:35 10/04/24 04:35 Labs: Laboratory Results - last 24 hr 10/03/24 20:11: WBC 10.3, RBC 3.54 L, Hgb 10.4 L, Hct 32.2 L, MCV 91.0, MCH 29.4, MCHC 32.3, RDW Std Deviation 44.4 H, RDW Coeff of Tiffani 13.3, Plt Count 368,MPV 9.2, Immature Gran % (Auto) 0.600, Neut % (Auto) 79.6 H, Lymph % (Auto) 9.6 L, Emanuel % (Auto) 9.8, Eos % (Auto) 0.1, Baso % (Auto) 0.3, Absolute Neuts (auto)8.2 H, Absolute Lymphs (auto) 0.99, Nucleated RBC % 0, Sodium 134, Potassium 4.2, Chloride 96 L, Carbon Dioxide 28.4, Anion Gap 11, BUN 35 H, Creatinine 1.04, Estim Creat Clear Calc 35.97 L, Est GFR (MDRD) Non-Af 52 L, BUN/CreatinineRatio 33.3 H, Glucose 121 H, Calcium 8.4, Magnesium 3.4 H, Ethyl Alcohol < 10.1 10/03/24 20:30: Urine Color Straw, Urine Clarity Clear, Urine pH 6.5, Ur Specific [place] 1.010, Urine Protein 30 H, Urine Glucose (UA) Normal, Urine Ketones Negative, Urine Occult Blood 25 H, Urine Nitrite Negative, Urine Bilirubin Negative, Urine Urobilinogen Normal, Ur Leukocyte Esterase Negative, Urine RBC 0-5 SEEN, Urine WBC 0-5 SEEN, Ur Squamous Epith Cells 0 SEEN, Urine Bacteria 2+, Urine Mucus 0 SEEN, Urine Opiates Screen PRESUMPTIVE POSITIVE, U Buprenorphine Qual NEGATIVE, Ur Oxycodone Screen NEGATIVE, Urine Methadone Screen NEGATIVE, Urine Fentanyl Screen NEGATIVE, Ur Barbiturates Screen NEGATIVE, Ur Phencyclidine Scrn NEGATIVE, Ur Amphetamines Screen NEGATIVE, U Benzodiazepines Scrn NEGATIVE, Urine Cocaine Screen NEGATIVE, U Cannabinoids Screen NEGATIVE 10/04/24 04:35: WBC 9.6, RBC 3.73 L, Hgb 10.8 L, Hct 34.0 L, MCV 91.2, MCH 29.0,MCHC 31.8 L, RDW Std Deviation 44.9 H, RDW Coeff of Tiffani 13.3, Plt Count 379, MPV9.3, Immature Gran % (Auto) 0.600, Neut % (Auto) 71.3 H, Lymph % (Auto) 14.8 L, Emanuel % (Auto) 11.6 H, Eos % (Auto) 1.1, Baso % (Auto) 0.6, Absolute Neuts (auto)6.8, Absolute Lymphs (auto) 1.42, Nucleated RBC % 0, Sodium 136, Potassium 3.6, Chloride 97 L, Carbon Dioxide 26.0, Anion Gap 13, BUN 30 H, Creatinine 0.93, Estim Creat Clear Calc 36.11 L, Est GFR (MDRD) Non-Af 59 L, BUN/Creatinine Ratio 31.8 H, Glucose 141 H, Calcium 8.3, Phosphorus 2.5 L, Total Bilirubin 0.41, AST 28, ALT 12, Alkaline Phosphatase 88, Total Protein 6.4, Albumin 3.8, Globulin 2.7, Albumin/Globulin Ratio 1.4, TSH 0.373 Radiography Diagnostic Testing: Radiology Impression Cervical Spine CT 10/03/24 19:44 IMPRESSION: NO ACUTE CERVICAL FRACTURE. DEGENERATIVE CHANGES. Reading Location: [facility] Chest CT 10/03/24 19:44 IMPRESSION: 1. No acute thoracic finding. 2. Chronic findings as described. Reading Location: [facility] Brain CT 10/03/24 19:45 IMPRESSION: No acute intracranial finding. Reading Location: [facility] Hip/Pelvis X-Ray 10/03/24 21:28 IMPRESSION: DEGENERATIVE OSTEOARTHROSIS. NO ACUTE FINDINGS. Reading Location: [facility] Rhythm Strip Rhythm Strip: Sinus Rhythm Rate: 88 Ectopy: None Physical Exam Const alert, oriented x3, no apparent distress and average body habitus Constitutional Narrative: Elderly female, mildly fatigued appearing but otherwise sitting up comfortably in bedside chair, conversing normally, in no acute distress. General Appearance: cooperative and comfortable HEENT normocephalic, head/scalp atraumatic, hearing grossly normal bilaterally, nasal mucous membranes and turbinates normal and moist oral mucous membranes Eyes PERRL, EOMs intact bilaterally and conjunctivae normal Neck full ROM Chest inspection of chest normal Resp normal respiratory effort, normal air movement, no use of accessory muscles and clear to auscultation bilaterally Cardio regular rate, regular rhythm, no murmurs and peripheral pulses 2+ throughout GI normal to inspection, nondistended, normoactive bowel sounds, soft to palpation,non-tender and non-distended Back/Spine normal ROM Extremity normal to inspection, full ROM and no pedal edema Skin no rashes or lesions noted Psych mental status grossly normal Assessment & Plan Assessment/Plan (1) Toxic encephalopathy: QUALIFIERS: Toxic encephalopathy cause: unspecified toxin Qualified Code(s): G92.9 - Unspecified toxic encephalopathy PLAN: Plan Patient is an 89-year-old female who presented to [facility] ED on 10/03/2024 with worsening confusion with weakness. 1. Acute toxic encephalopathy, improved ? Presented from home with worsening confusion with delirium. Lives at home alone. Notably much improved on hospital day 2 and alert and oriented x 3. Highest concern is encephalopathy secondary to high home dosage of pramipexole for RLS. Seems less likely that acute CVA is contributing but cannot rule this out. Patient is on 3 mg of pramipexole at night; no history of Parkinson's thatis noted. It appears on chart review that she was on 1.5 mg at night as of a few months ago; unclear when the dosage was increased. Will decrease back to 1.5 mg at night for now and can consider reducing further if needed. 2. Acute CVA; history of CVA with residual left-sided deficits, hypertension, hyperlipidemia ? Neurology consulted. Presented with worsening confusion with delirium as above. No new motor deficits noted. CT brain unremarkable. However, MRI brainshowed an acute right punctate lacunar type infarction in the posterior right centrum. May have contributed to symptoms as above but this is unclear. Had borderline therapy scores as noted below but this is at her baseline. Appreciate neurology recommendations. Will continue to treat with home aspirin,statin, Lopressor, Lasix and losartan at this time. 3. Acute on chronic debility with recent fall at home ? PT/OT/case management following. Patient lives at home alone. Was dischargedto SNF at [facility] after recent hospitalization in late August. Therapy scores borderline here; will likely need either home with home health care versus SNF on discharge. 4. Chronic back pain ? On home hydrocodone?acetaminophen 7.5?325 mg up to 4 times daily as needed. Patient denies overuse of this medication but there is concern that this could be contributing to her encephalopathy as above. Will treat with scheduled Tylenol 1 g every 8 hours here and can consider adding p.o. Dilaudid as needed. Pain has been well-controlled since admission. 5. Restless leg syndrome ? On pramipexole at home. As noted above, had dosage increase from 1.5 to 3 mg at night at some point in the past few months for unclear reason. Notably recommended dosing for RLS is a maximum of 0.75 mg daily. Dosing can be higher for Parkinson's disease but patient has no Parkinson's diagnosis listed. Will decrease back to 1.5 mg at night for now and recommend further down titration inthe outpatient setting as able. 6. Concern for UTI ? UA with 2+ bacteria but negative leukocyte esterase and negative nitrates. Urine culture growing 80-100,000 Aerococcus. Patient with no UTI symptoms and otherwise noninfectious appearing, will hold on any further antibiotics. 7. Chronic iron deficiency anemia ? Hemoglobin stable at baseline around 10-11 during hospitalization. Continue home iron supplement. DVT prophylaxis: Lovenox CODE STATUS: DNR CCA, DNI Expected disposition: Likely home with [facility], 1 to 2 days Total clinical time spent by myself addressing the patient's medical issues, reviewing all the data, and collaborating with patient's care team: 35 minutes. Charges/Coding Visit Charges Inpatient E&M: 81127 Subs Hosp L2 10/04/24 4122 <Electronically signed by Santino Haas DO> Cosigner Signature (if applicable): CC: ~ Signed [facility] Work Phone: [phone] 303-219505-26-2025 History and physical note Author Juan José Thorpe [facility] Note Date/Time October 04, 2024 6:26a m [facility] Medical Records Department [address] [place] [address] H&P Exam - Hospitalist 10/03/242324 MR#: [id number] Acct: [id number] Name: JYOCE SOLOMON Rep #:[id number] : 1935 89 From: Juan José Butler DO PCP: Dr. Bridget Swenson MD Status :ADM CRISTIANA Location: [place] [address] HPI - General General Date of Admission: 10/04/24 Date of Service: 10/03/24 Chief Complaint: Worsening Confusion. HPI Narrative JOYCE SOLOMON, is a 89 F with a past medical history of essential hypertension; on losartan, amlodipine, metoprolol tartrate twice daily and furosemide, hyperlipidemia; on rosuvastatin, history of partial thyroidectomy; with subsequent hypothyroidism; currently not on treatment, history of parathyroidectomy, history of thymectomy, remote history of scarlet fever, overweight; with BMI of 26.6 this admission, NEL; on CPAP, history of COPD, history of paroxysmal atrial fibrillation; currently not on anticoagulation but taking baby aspirin daily, chronic venous insufficiency, RLS; on pramipexole, history of migraine headaches, REYES, history of vitamin D deficiency, osteoporosis; on denosumab, osteoarthritis; with history of closed L2 compression fracture; s/p kyphoplasty and RFA of nerve of lumbar spine, history of secondary pulmonary hypertension, history of hypertensive emergency, history of cerebral amyloid angiopathy, 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); with Left-sided residual deficit and recent admissionhere from August 30, 2024 to August 31, 2024 for increased Left-sided facial droopwith Left-sided weakness worse than her usual deficit in addition to confusion and dysphagia; with MRI that was negative for acute intracranial abnormality and2D echo bubble contrast study that was negative for PFO with patient recommendedto go to [facility]p facility - but with patient refusing and opting to return home who then returned for another admission from September 01, 2024 to 2024 for treatment of hypertensive urgency with altered mental status who now re-presents to [facility] ER after family noted worsening confusion. Unfortunately, this patient has been admitted previously for similar complaint with complete stroke workup done but with patient unwilling to go to [place] [facility] and family unable understand patient is no longer able to live independently resulting in a pattern of serial readmission. According to the records her family was concerned about her ability to live at home alone becausewhen they went to check on her earlier today she was speaking "gibberish" when home health arrived. She had recently been at [facility]' but apparently could not afford to stay there resulting in her being sent back home. She had a recent urinalysis that was questionable for UTI and she was prescribed Macrobid but her family reports that though she did obtain the antibiotics there is still 10 pills in the container indicating that she never started to take them. She also apparently had a fall today after her leg buckled this morning with squad called because she could not get herself up and she refused transport at that time. She admits to constipation as she is on hydrocodone-APAP 4 times daily which is likely driving the worsening of her intermittent confusion. She states she has bruising on her back and increased pain in her right flank today but she denies loss of consciousness or head trauma with her fall. She additionally denies associated fever, chills, nausea,vomiting, diarrhea, abdominal pain, chest pain, shortness of breath, headache orrash. In the ER she was noted to have unremarkable vital signs and laboratory studies including urinalysis that was negative for acute infection at this time but she was noted to have a urine drug screen positive for opiates which is likely causing toxic encephalopathy due to adverse drug reaction in this elderlypatient with a complicated neurologic history who needs permanent ECF placement to avoid further serial readmission. She was then admitted to the PCU under observation status for a stay that is expected to be less than 2 midnights. [facility] Medical History (Updated 10/04/24 @ 03:17 by Sweta Christensen) Chronic pain BiPAP (biphasic positive airway pressure) dependence Aphasia History of hemorrhagic cerebrovascular accident (CVA) with residual deficit Daytime somnolence Elevated PTHrP level Venous insufficiency of both lower extremities Cerebral amyloid angiopathy Hypothyroidism Hyperlipidemia Essential (primary) hypertension Hypertension Lumbar compression fracture Closed compression fracture of L2 vertebra COPD (chronic obstructive pulmonary disease) Wrist fracture, right Shoulder fracture, left Iron deficiency anemia Osteoporosis Vitamin D deficiency Hiatal hernia Restless legs History of stress test HTN (hypertension) Scarlet fever Sleep apnea Pulmonary hypertension Secondary pulmonary arterial hypertension Paroxysmal atrial fibrillation Incomplete right bundle branch block Obstructive sleep apnea Obesity Essential (primary) hypertension Multiple fractures of ribs, left side, initial encounter for closed fracture Hypertensive emergency Pneumonia Limb weakness Difficulty balancing Thyroid disease Migraines Fatigue Arthritis Community acquired pneumonia Home Medications ?Medication ?Instructions ?Recorded ?Last Taken ?Type denosumab 60 mg/mL subcutaneous 60 mg subcut [id number] osteoporosis 10/08/19 08/24/21 History syringe (Prolia) aspirin 81 mg chewable tablet 1 tab PO DAILY Heart hea lth 05/16/24 05/30/24 History acetaminophen 500 mg tablet 1,000 mg (2 x 500 mg) PO Q 8 #0 tabs 07/20/24 Unknown Rx losartan 100 mg tablet 100 mg PO DAILY #0 tabs 07/10 06/05 Unknown Rx metoprolol tartrate 100 mg tablet 100 mg PO BID 30 day s #60 tabs 07/20/24 Unknown Rx ascorbic acid (vitamin C) 500 mg 500 mg PO DAILY suppl ement 08/30/24 Unknown History tablet (C-500) cholecalciferol (vitamin D3) 25 2,000 unit PO DAILY srivastava pplement 08/30/24 Unknown History mcg (1,000 unit) capsule magnesium oxide 420 mg tablet 420 mg PO DAILY 08/30/24 Unknown History pramipexole 1 mg tablet 3 mg (3 x 1 mg) PO QHS 30 da ys #90 08/31/24 Unknown Rx tabs rosuvastatin 20 mg tablet 20 mg PO QHS 1 month #30 tab s 08/31/24 Unknown Rx amlodipine 10 mg tablet 10 mg PO DAILY #0 tabs 09/03 Unknown Rx nitrofurantoin 100 mg PO Q12H 5 days #10 ca ps 10/01/24 Unknown Rx monohydrate/macrocrystals 100 mg capsule (Macrobid) docusate sodium 100 mg capsule 100 mg PO DAILY 5 Unknown History (Dulcolax Stool Softener (docusate)) ferrous sulfate 325 mg (65 mg 325 mg PO DAILY 10/03/24 Unknown History iron) tablet (iron) furosemide 40 mg tablet (Lasix) 40 mg PO DAILY 5 Unknown History hydrocodone 7.5 mg-acetaminophen 1 tab PO 4X/DAY PRN P RN pain 10/03/24 Unknown History 325 mg tablet Allergy/AdvReac Type Severity Reaction Status Date / Time cefazolin (From Ancef) Allergy Severe Swelling Verified 10/03/24 17:47 silk Allergy Intermediate itching Verified 10/03/24 17:47 duloxetine (From Cymbalta) Allergy Unknown Hives Verified 10/03/24 17:47 shellfish derived Allergy Unknown Other Verified 10/03/24 17:47 beet (Beet) Allergy Hives Verified 10/03/24 17:47 cantaloupe Allergy Food Verified 10/03/24 17:47 Allergy eggplant Allergy Hives Verified 10/03/24 17:47 Food Allergies: Uncoded Allergy Itching Verified 10/03/24 17:47 levofloxacin (From Levaquin) Allergy Unknown Verified 10/03/24 17:47 mold Allergy NEEDS Verified 10/03/24 17:47 FOLLOW-UP Penicillins Allergy Unknown Verified 10/03/24 17:47 tomato Allergy Food Verified 10/03/24 17:47 Allergy wheat Allergy Hives Verified 10/03/24 17:47 gabapentin (From Neurontin) AdvReac Other Verified 10/03/24 17:47 meloxicam (From Mobic) AdvReac Other Verified 10/03/24 17:47 oxycodone (From OxyIR) AdvReac Nausea Verified 10/03/24 17:47 risedronate sodium (From AdvReac Other Verified 10/03/24 17:47 Actonel) Family History Other Cancer Diabetes Heart disease Surgical History H/O radiofrequency ablation (RFA) of nerve of lumbar spine History of kyphoplasty Hx of tonsillectomy H/O partial thyroidectomy History of appendectomy History of cholecystectomy Hx of bilateral cataract extraction History of thyroid surgery Hx of appendectomy History of tonsillectomy Hx of cholecystectomy History of thymectomy History of parathyroidectomy Social History adopted: No household members: none housing: [facility] number of children: 2 current occupational status: retired current occupational exposures/hazards: No pets and animals: No leisure activities: reading and other history of recent travel: Yes (concert in [place]) Smoking Status: Never smoker alcohol intake: never substance use type: does not use caffeine: No ROS ROS Narrative Review of Systems: Constitutional: Patient denies fever or chills. Eyes: Patient denies change in vision or discharge from eyes. ENT: Patient denies runny nose, sore throat or ear pain. Resp: Patient denies shortness of breath or cough. CV: Patient denies chest pain, palpitations, heart racing or lower extremity edema. GI: Patient admits to constipation but she denies abdominal pain, nausea or vomiting. : Patient denies dysuria, hematuria or urinary frequency. MSK: Patient admits to generalized weakness with frequent falls due to back painand myalgias as per HPI. Skin: Patient denies rash, abscess, wounds or jaundice. Psych: Patient has intermittent confusion since her previous strokes and cannot live at home alone. There is no report of SI or HI. Neuro: Patient admits to generalized weakness but she denies headache or paresthesias. Allergy: Patient denies lip swelling, tongue swelling or urticaria. Hematology: Patient denies easy bleeding or easy bruisability. Endocrinology: Patient denies polyuria, polydipsia, polyphagia or heat/cold intolerance. 14 point ROS otherwise negative except for positives noted above in HPI. Vital Signs Vital Signs Vital Signs: 10/03/24 17:44 10/03/24 19:05 10/03/24 20:30 Temperature 98.5 F Temperature Source Oral Pulse Rate 18 L 93 Respiratory Rate 16 16 Respiratory Effort Normal Respiratory Pattern Normal Blood Pressure 179/63 H 114/93 H Blood Pressure Mean 101 100 Pulse Ox 99 99 Oxygen Delivery Method Room Air Room Air 10/03/24 22:00 Temperature 97.9 F Temperature Source Oral Pulse Rate 88 Respiratory Rate 16 Respiratory Effort Respiratory Pattern Blood Pressure 164/48 H Blood Pressure Mean 86 Pulse Ox 99 Oxygen Delivery Method Room Air Weight Weight: 154 lb 15.759 oz Body Mass Index (BMI) 26.6 Physical Exam Const alert, no apparent distress and average body habitus Constitutional Narrative: Patient appears chronically ill and is confused. General Appearance: cooperative Orientation / Consciousness: confused HEENT normocephalic, head/scalp atraumatic, hearing grossly normal bilaterally and moist oral mucous membranes Eyes PERRL, EOMs intact bilaterally and conjunctivae normal Neck no lymphadenopathy, supple and no JVD Resp normal respiratory effort, no retractions, no use of accessory muscles and clearto auscultation bilaterally Resp Narrative: Mild tenderness to palpation over the Right anterior chest wall Cardio regular rate and regular rhythm GI normal to inspection, nondistended, normoactive bowel sounds, soft to palpation,non-tender and non-distended Extremity normal to inspection and no clubbing, cyanosis or edema Extremity Narrative: Tenderness to palpation with decreased range of motion of the left hip due to pain. Pelvis is stable. Skin Skin Narrative: Patient has bruising noted over the Left anterior distal thigh with mild tenderness to palpation. No abrasion or other sign of neurovascular compromise. Neuro CN's II-XII intact bilaterally, moves all extremities and no focal motor deficits Sensorium / Orientation: awake, alert, oriented to person and oriented to place Speech: speech normal Psych affect normal Results Medical Records Data Attestation: I reviewed the patient's medical records Lab / Micro Data Attestation: I reviewed the patient's lab results. 10/04/24 04:35 10/04/24 04:35 Labs: Laboratory Results - last 24 hr 10/03/24 20:11: WBC 10.3, RBC 3.54 L, Hgb 10.4 L, Hct 32.2 L, MCV 91.0, MCH 29.4, MCHC 32.3, RDW Std Deviation 44.4 H, RDW Coeff of Tiffani 13.3, Plt Count 368,MPV 9.2, Immature Gran % (Auto) 0.600, Neut % (Auto) 79.6 H, Lymph % (Auto) 9.6 L, Emanuel % (Auto) 9.8, Eos % (Auto) 0.1, Baso % (Auto) 0.3, Absolute Neuts (auto)8.2 H, Absolute Lymphs (auto) 0.99, Nucleated RBC % 0, Sodium 134, Potassium 4.2, Chloride 96 L, Carbon Dioxide 28.4, Anion Gap 11, BUN 35 H, Creatinine 1.04, Estim Creat Clear Calc 35.97 L, Est GFR (MDRD) Non-Af 52 L, BUN/CreatinineRatio 33.3 H, Glucose 121 H, Calcium 8.4 10/03/24 20:30: Urine Color Straw, Urine Clarity Clear, Urine pH 6.5, Ur Specific [place] 1.010, Urine Protein 30 H, Urine Glucose (UA) Normal, Urine Ketones Negative, Urine Occult Blood 25 H, Urine Nitrite Negative, Urine Bilirubin Negative, Urine Urobilinogen Normal, Ur Leukocyte Esterase Negative, Urine RBC 0-5 SEEN, Urine WBC 0-5 SEEN, Ur Squamous Epith Cells 0 SEEN, Urine Bacteria 2+, Urine Mucus 0 SEEN Rhythm Strip Rhythm Strip: Sinus Rhythm Rate: 88 Ectopy: None Imaging Radiology Impression Cervical Spine CT 10/03/24 19:44 IMPRESSION: NO ACUTE CERVICAL FRACTURE. DEGENERATIVE CHANGES. Reading Location: [facility] Chest CT 10/03/24 19:44 IMPRESSION: 1. No acute thoracic finding. 2. Chronic findings as described. Reading Location: [facility] Brain CT 10/03/24 19:45 IMPRESSION: No acute intracranial finding. Reading Location: [facility] Hip/Pelvis X-Ray 10/03/24 21:28 IMPRESSION: DEGENERATIVE OSTEOARTHROSIS. NO ACUTE FINDINGS. Reading Location: [facility] Assessment & Plan Assessment/Plan (1) Toxic encephalopathy: QUALIFIERS: Toxic encephalopathy cause: unspecified toxin Qualified Code(s): G92.9 - Unspecified toxic encephalopathy (2) Fall: QUALIFIERS: Encounter type: initial encounter Qualified Code(s): W19.XXXA - Unspecified fall, initial encounter (3) Adverse drug reaction: QUALIFIERS: Encounter type: initial encounter Qualified Code(s): T50.905A - Adverse effect of unspecified drugs, medicaments and biological substances, initial encounter (4) Noncompliance: (5) Chronic back pain: QUALIFIERS: Back pain laterality: unspecified Back pain location:back pain in unspecified location Qualified Code(s): M54.9 - Dorsalgia, unspecified; G89.29 - Other chronic pain (6) History of hemorrhagic cerebrovascular accident (CVA) with residual deficit: PLAN: Plan 1. Acute Toxic Encephalopathy with recent Fall at Home- Admit to PCU under observation status. We will check MRI of the brain to evaluate for possible acute CVA with low-index of suspicion for new neurologic insult. We will minimize CLINICAL DOCUMENTATION CLERK- active medications. Finally, we will consult PT/OT and Case Management to see patient on rounds in the a.m. for further recommendations regarding permanent ECF placement so we can avoid further serial readmission forsimilar issues without appreciated in advance. 2. Adverse Drug Reaction to hydrocodone-APAP 4 times daily used to treat Chronic Back Pain likely causing #1 - Hold opiates to allow sensorium to clear. Give acetaminophen prn pain or fever. 3. Most recent admission from September 01, 2024 to September 03, 2024 for treatment ofHypertensive Urgency with Altered Mental Status who was discharged to [facility] with patient unable to afford to stay complicating #1 & #2 - Noted with patient obviously unable to care for herself at home proved even moreclearly by patient's failure to take recently diagnosed UTI. 4. Recent admission here from August 30, 2024 to August 31, 2024 for increased Left-sided facial droop with Left-sided weakness worse than her usual deficit inaddition to confusion and dysphagia; with MRI that was negative for acute intracranial abnormality and 2D echo bubble contrast study that was negative forPFO with patient recommended to go to [facility] facility - but with patient refusing and opting to return home adding to the medical complexity of #1 - #3 - Noted. 5. History Right parietal intracranial hemorrhagic CVA with cerebral amyloid angiopathy (04/2024); with Left-sided residual deficit adding to the burden of disease outlined from #1 - #4 - Noted. 6. Essential hypertension; on losartan, amlodipine, metoprolol tartrate twice daily and furosemide - Hold scheduled antihypertensives until CVA definitively ruled out on MRI. 7. Hyperlipidemia; on rosuvastatin - Resume statin. 8. History of partial thyroidectomy; with subsequent hypothyroidism; currently not on treatment - Noted. 9. History of parathyroidectomy - Noted. 10. History of thymectomy - Noted. 11. Remote history of scarlet fever - Noted for the sake of completeness. 12. Overweight; with BMI of 26.6 this admission plus NEL; on CPAP - Weight losswill be recommended. Continue nocturnal CPAP. 13. History of COPD with secondary pulmonary hypertension - Stable with no evidence of acute flare at this time. 14. History of paroxysmal atrial fibrillation; currently not on anticoagulationbut taking baby aspirin daily - Resume BASA daily as before. 15. Chronic venous insufficiency - Stable. 16. RLS; on pramipexole - Current treatment to be maintained. 17. History of migraine headaches - Stable with no complaints of headache at this time. 18. REYES - Stable with hemoglobin of 10.4 g/dL and MCV of 91 fL present on admission. 19. History of vitamin D deficiency - Stable with recent level on September 06, 2024 at 34 ng/mL. 20. Osteoporosis; on denosumab - Restart denosumab as outpatient. 21. OA; with history of closed L2 compression fracture; s/p kyphoplasty and RFAof nerve of lumbar spine - Noted. 22. DVT prophylaxis - SCD's only with history of hemorrhagic CVA and recent fall. Total time: Approximately (but not less than) 85 minutes. Charges/Coding Visit Charges OBSV E&M: 37342 Observ/hosp same date L3 10/04/24625 <Electronically signed by Juan José Suarez DO> Cosigner Signature (if applicable): CC: Dr. Bridget Swenson MD; Dr. Juan José Suarez DO~ Signed [facility] Work Phone: [phone] Discharge summary Author Diana Snow [facility] Note Date/Time October 04, 2024 12:14 am [facility] Medical Records Department [address] [place] [address] Emergency Department Summary 10/03/24 MR#: [id number] Acct: [id number] Name: JOYCE SOLOMON Rep #:[id number] : 1935 89 From: Diana Panda PCP: Dr. Bridget Swenson MD Status :REG ER Location: ED HPI History of Present Illness Chief Complaint: Weakness Informant: patient Narrative Narrative: Patient is 89-year-old female with history of NEL on CPAP, hemorrhagic stroke, hypertension, proximal atrial fibrillation presenting for fall today, increased delirium and weakness. Patient was actually seen in our ER 2 days ago for confusion. Family was concerned about her ability to live at home alone and patient was apparently speaking gibberish when [facility] arrived. She had recently been in at [facility] but apparently could not afford it. She did have a urinalysis that was concerning for infection and patient was prescribed Macrobid. Family reports that they do not think patient started her antibiotics as they are still all of the pills in the container. They state that she has been taking her medications inappropriately at home. She has been seeing things suchas people that do not talk to her. She states she has been hearing things like a loud noise but is a hard time describing this. She had a fall today. Patientstates she fell this morning and states her leg buckled. Squad came because patient cannot get herself up but she refused transportation at this time. She has noted to have bruising to her back and is having increased pain of her rightflank today. Patient states she did not hit her head. She denies any associated nausea or vomiting. Denies any chest pain. Patient denies any urinary symptoms. She states she feels "a little constipated". Family states that they will see her talking to herself and has been occurring with increased frequency since April but is gotten much worse lately. They are concerned about her ability to live home alone and feel that she is significantly worsenedover the past few days. [facility] Medical History Aphasia History of hemorrhagic cerebrovascular accident (CVA) with residual deficit Daytime somnolence Elevated PTHrP level Venous insufficiency of both lower extremities Cerebral amyloid angiopathy Hypothyroidism Hyperlipidemia Essential (primary) hypertension Hypertension Lumbar compression fracture Closed compression fracture of L2 vertebra COPD (chronic obstructive pulmonary disease) Wrist fracture, right Shoulder fracture, left Iron deficiency anemia Osteoporosis Vitamin D deficiency Hiatal hernia Restless legs History of stress test HTN (hypertension) Scarlet fever Sleep apnea Pulmonary hypertension Secondary pulmonary arterial hypertension Paroxysmal atrial fibrillation Incomplete right bundle branch block Obstructive sleep apnea Obesity Essential (primary) hypertension Multiple fractures of ribs, left side, initial encounter for closed fracture Hypertensive emergency Pneumonia Limb weakness Difficulty balancing Thyroid disease Migraines Fatigue Arthritis Community acquired pneumonia Home Medications ?Medication ?Instructions ?Recorded ?Last Taken ?Type denosumab 60 mg/mL subcutaneous 60 mg subcut [id number] osteoporosis 10/08/19 08/24/21 History syringe (Prolia) aspirin 81 mg chewable tablet 1 tab PO DAILY [facility] 05/16/24 05/30/24 History acetaminophen 500 mg tablet 1,000 mg (2 x 500 mg) PO Q 8 #0 tabs 07/20/24 Unknown Rx losartan 100 mg tablet 100 mg PO DAILY #0 tabs 07/10 06/05 Unknown Rx metoprolol tartrate 100 mg tablet 100 mg PO BID 30 day s #60 tabs 07/20/24 Unknown Rx ascorbic acid (vitamin C) 500 mg 500 mg PO DAILY suppl ement 08/30/24 Unknown History tablet (C-500) cholecalciferol (vitamin D3) 25 2,000 unit PO DAILY srivastava pplement 08/30/24 Unknown History mcg (1,000 unit) capsule magnesium oxide 420 mg tablet 420 mg PO DAILY 08/30/24 Unknown History pramipexole 1 mg tablet 3 mg (3 x 1 mg) PO QHS 30 da ys #90 08/31/24 Unknown Rx tabs rosuvastatin 20 mg tablet 20 mg PO QHS 1 month #30 tab s 08/31/24 Unknown Rx amlodipine 10 mg tablet 10 mg PO DAILY #0 tabs 09/03 Unknown Rx nitrofurantoin 100 mg PO Q12H 5 days #10 ca ps 10/01/24 Unknown Rx monohydrate/macrocrystals 100 mg capsule (Macrobid) docusate sodium 100 mg capsule 100 mg PO DAILY 05/25/2 5 Unknown History (Dulcolax Stool Softener (docusate)) ferrous sulfate 325 mg (65 mg 325 mg PO DAILY 10/03/24 Unknown History iron) tablet (iron) furosemide 40 mg tablet (Lasix) 40 mg PO DAILY 5 Unknown History hydrocodone 7.5 mg-acetaminophen 1 tab PO 4X/DAY PRN P RN pain 10/03/24 Unknown History 325 mg tablet Allergy/AdvReac Type Severity Reaction Status Date / Time cefazolin (From Ancef) Allergy Severe Swelling Verified 10/03/24 17:47 silk Allergy Intermediate itching Verified 10/03/24 17:47 duloxetine (From Cymbalta) Allergy Unknown Hives Verified 10/03/24 17:47 shellfish derived Allergy Unknown Other Verified 10/03/24 17:47 beet (Beet) Allergy Hives Verified 10/03/24 17:47 cantaloupe Allergy Food Verified 10/03/24 17:47 Allergy eggplant Allergy Hives Verified 10/03/24 17:47 Food Allergies: Uncoded Allergy Itching Verified 10/03/24 17:47 levofloxacin (From Levaquin) Allergy Unknown Verified 10/03/24 17:47 mold Allergy NEEDS Verified 10/03/24 17:47 FOLLOW-UP Penicillins Allergy Unknown Verified 10/03/24 17:47 tomato Allergy Food Verified 10/03/24 17:47 Allergy wheat Allergy Hives Verified 10/03/24 17:47 gabapentin (From Neurontin) AdvReac Other Verified 10/03/24 17:47 meloxicam (From Mobic) AdvReac Other Verified 10/03/24 17:47 oxycodone (From OxyIR) AdvReac Nausea Verified 10/03/24 17:47 risedronate sodium (From AdvReac Other Verified 10/03/24 17:47 Actonel) Family History Other Cancer Diabetes Heart disease Surgical History H/O radiofrequency ablation (RFA) of nerve of lumbar spine History of kyphoplasty Hx of tonsillectomy H/O partial thyroidectomy History of appendectomy History of cholecystectomy Hx of bilateral cataract extraction History of thyroid surgery Hx of appendectomy History of tonsillectomy Hx of cholecystectomy History of thymectomy History of parathyroidectomy Social History adopted: No household members: none housing: condominium number of children: 2 current occupational status: retired current occupational exposures/hazards: No pets and animals: No leisure activities: reading and other history of recent travel: Yes (concert in [place]) Smoking Status: Never smoker alcohol intake: never substance use type: does not use caffeine: No ROS ROS ED Constitutional Constitutional ED: Denies chills or fever(s) Cardiovascular Cardiovascular: Denies chest pain Respiratory/Chest Respiratory/Chest: Denies cough or dyspnea Gastrointestinal Gastrointestinal: Reports constipation; Denies abdominal pain, nausea or vomiting Genitourinary Genitourinary ED: Denies dysuria or urinary frequency Musculoskeletal Musculoskeletal: Reports arthralgias, back pain and myalgias; Denies neck pain Integumentary Denies rash Neurologic Neurologic: Reports weakness; Denies headache(s) Psychiatric Psychiatric: Reports depression and other Details: Patient states she has been seeing people who will not talk to her. EXAM Physical Exam Const Vital Signs: 10/03/24 17:44 10/03/24 19:05 10/03/24 20:30 Temperature 98.5 F Temperature Source Oral Pulse Rate 18 L 93 Respiratory Rate 16 16 Respiratory Effort Normal Respiratory Pattern Normal Blood Pressure 179/63 H 114/93 H Blood Pressure Mean 101 100 Pulse Ox 99 99 Oxygen Delivery Method Room Air Room Air 10/03/24 22:00 Temperature 97.9 F Temperature Source Oral Pulse Rate 88 Respiratory Rate 16 Respiratory Effort Respiratory Pattern Blood Pressure 164/48 H Blood Pressure Mean 86 Pulse Ox 99 Oxygen Delivery Method Room Air Positive well nourished, well developed and unkempt General Appearance ED: unkempt and well developed HEENT Reports moist mucous membranes Eyes PERRL Neck supple and no JVD General: Negative for tenderness Chest Wall inspection of chest normal Chest Narrative: No chest wall crepitus. Mild tenderness palpation over the right mid anterior chest wall Resp normal respiratory effort and clear to auscultation bilaterally Cardio regular rate and regular rhythm GI normal to inspection, nondistended, normoactive bowel sounds and non-tender Auscultation: normoactive bowel sounds Palpation: soft Back/Spine no CVA tenderness Thoracic Spine / Upper Back: Negative for thoracic spinal tenderness Lumbar Spine / Lower Back: Negative for lumbar spinal tenderness Extremity Extremity Narrative: No obvious deformity. Tenderness palpation with range of motion of the left hip. Pelvis is stable. Neuro Neuro Narrative: Oriented to name and location. Patient is intermittently delirious and slightlyconfused but answers other questions quite appropriately. Sensorium / Orientation: alert Motor Exam: general weakness Psych mental status grossly normal Psych Narrative: Does report visual hallucinations of seeing people. Otherwise acting appropriately. Appearance: unkempt Skin no rashes or lesions noted Skin Narrative: Small area of erythema of the right lower back however is nontender to palpation. Small amount of bruising noted to the left anterior distal thigh. Mild tenderness there. Trauma: Negative for abrasion MDM MDM MDM Narrative Medical decision making narrative: Patient evaluated for what sounds like delirium, fall today and with inability to get herself up. She had a urinalysis 2 days ago that grew 80,000-100,000 CFU's per mL of gram-positive cocci (sensitivity still pending) but she did not start taking her antibiotics. Differential includes toxic metabolic encephalopathy, intracranial hemorrhage, stroke, hip fracture, acute delirium secondary to urinary tract infection, STACY, symptomatic anemia and sepsis. Pelvic x-ray with left hip reviewed by myself does not show any acute fracture. CT of the brain given her delirium and reported fall that was unwitnessed is obtained to look for intracranial hemorrhage. CT of the cervical spine is obtained to look for any acute traumatic cervical spinal injury. CT of the chest is obtained to look for any rib fracture given that she has pain over her right chest wall in the setting of a fall. Lab work shows mild anemia which appears to be near her baseline. No leukocytosis. BMP largely normal with no STACY or acute electro abnormalities. Urinalysis does show 2+ bacteria. Given her prior culture which was on treated and her acute delirium I do think she would benefit from IV antibiotics. Will be started on meropenem given her allergy to both Ancef and Levaquin. Given that patient did not have a positive culture 2 days ago, has not been treated and is now having delirium/visual hallucinations and falls as well as having difficulty taking her medications at home I do think she would benefit from admission to the hospital. Case discussed with hospitalist, Dr. Gaspar. He did request to add on a urine drug screen which is sent. Lab Data Attestation: I reviewed the patient's lab results. Labs: Laboratory Results - last 24 hr 10/03/24 10/03/24 20:11 20:30 WBC 10.3 RBC 3.54 L Hgb 10.4 L Hct 32.2 L MCV 91.0 MCH 29.4 MCHC 32.3 RDW Std Deviation 44.4 H RDW Coeff of Tiffani 13.3 Plt Count 368 MPV 9.2 Immature Gran % (Auto) 0.600 Neut % (Auto) 79.6 H Lymph % (Auto) 9.6 L Emanuel % (Auto) 9.8 Eos % (Auto) 0.1 Baso % (Auto) 0.3 Absolute Neuts (auto) 8.2 H Absolute Lymphs (auto) 0.99 Nucleated RBC % 0 Sodium 134 Potassium 4.2 Chloride 96 L Carbon Dioxide 28.4 Anion Gap 11 BUN 35 H Creatinine 1.04 Estim Creat Clear Calc 35.97 L Est GFR (MDRD) Non-Af 52 L BUN/Creatinine Ratio 33.3 H Glucose 121 H Calcium 8.4 Urine Color Straw Urine Clarity Clear Urine pH 6.5 Ur Specific [place] 1.010 Urine Protein 30 H Urine Glucose (UA) Normal Urine Ketones Negative Urine Occult Blood 25 H Urine Nitrite Negative Urine Bilirubin Negative Urine Urobilinogen Normal Ur Leukocyte Esterase Negative Urine RBC 0-5 SEEN Urine WBC 0-5 SEEN Ur Squamous Epith Cells 0 SEEN Urine Bacteria 2+ Urine Mucus 0 SEEN Urine Opiates Screen PRESUMPTIVE POSITIVE U Buprenorphine Qual NEGATIVE Ur Oxycodone Screen NEGATIVE Urine Methadone Screen NEGATIVE Urine Fentanyl Screen NEGATIVE Ur Barbiturates Screen NEGATIVE Ur Phencyclidine Scrn NEGATIVE Ur Amphetamines Screen NEGATIVE U Benzodiazepines Scrn NEGATIVE Urine Cocaine Screen NEGATIVE U Cannabinoids Screen NEGATIVE Radiography Diagnostic Testing: Clinical Impression(s) from Imaging Studies Cervical Spine CT 10/03/24 19:44 IMPRESSION: NO ACUTE CERVICAL FRACTURE. DEGENERATIVE CHANGES. Reading Location: [facility] Chest CT 10/03/24 19:44 IMPRESSION: 1. No acute thoracic finding. 2. Chronic findings as described. Reading Location: [facility] Brain CT 10/03/24 19:45 IMPRESSION: No acute intracranial finding. Reading Location: [facility] Hip/Pelvis X-Ray 10/03/24 21:28 IMPRESSION: DEGENERATIVE OSTEOARTHROSIS. NO ACUTE FINDINGS. Reading Location: [facility] Rhythm Strip Rhythm Strip: Sinus Rhythm Rate: 88 Ectopy: None EKG Initial EKG: Attestation: I personally reviewed and interpreted this EKG as follows: Interpretation: Sinus Rhythm Comments: Normal sinus rhythm rate of 88 bpm Left axis deviation Right bundle branch block Minimal voltage catcher for LVH Normal ST segments Discharge Plan Triage Chief Complaint: Weakness ED Provider: Diana Snow Dx/Rx/DC Orders Clinical Impression: Acute UTI, Noncompliance, Acute delirium, Fall Prescriptions: No Action Prolia 60 mg/mL syringe 60 mg SC [id number] Patient Comments: due February Rx Instructions: due in february aspirin 81 mg tablet,chewable 1 tab PO DAILY metoprolol tartrate 100 mg Tablet 100 mg PO BID 30 Days Qty: 60 0RF acetaminophen 500 mg Tablet 1,000 mg PO Q8 Qty: 0 0RF losartan 100 mg Tablet 100 mg PO DAILY Qty: 0 0RF magnesium oxide 420 mg tablet 420 mg PO DAILY ascorbic acid (vitamin C) [C-500] 500 mg tablet 500 mg PO DAILY cholecalciferol (vitamin D3) 25 mcg (1,000 unit) capsule 2,000 unit PO DAILY pramipexole 1 mg Tablet 3 mg PO QHS 30 Days Qty: 90 0RF Rx Instructions: Pramipexole and tramadol might make drowsiness worse therefore try to avoid together rosuvastatin 20 mg tablet 20 mg PO QHS 30 Days Qty: 30 2RF amlodipine 10 mg Tablet 10 mg PO DAILY Qty: 0 0RF Rx Instructions: Hold for SBP less than 130 mmHg nitrofurantoin monohyd/m-cryst [Macrobid] 100 mg capsule 100 mg PO Q12H 5 Days Qty: 10 0RF Rx Instructions: must administer with a meal/food furosemide [Lasix] 40 mg tablet 40 mg PO DAILY ferrous sulfate [iron] 325 mg (65 mg iron) tablet 325 mg PO DAILY docusate sodium [Dulcolax Stool Softener (dss)] 100 mg capsule 100 mg PO DAILY hydrocodone-acetaminophen 7.5-325 mg tablet 1 tab PO 4X/DAY PRN PRN (Reason: pain) Primary Care Provider: Bridget Swenson Referrals: Bridget Swenson MD [Primary Care Provider] - Print Language: [place]ican Disposition Disposition: Acute Care Hospital [facility] What to do if you have Problems For any increased pain, shortness of breath, bleeding, nausea or vomiting, chestpain, or any unexpected problems, contact your Primary Care Provider. Call [facility] ([phone]) or report to the closest Emergency Room. Call 911 if necessary. 10/04/24 0014 <Electronically signed by Diana Snow DO> Cosigner Signature (if applicable): CC: Dr. Bridget Swenson MD ~ Signed [facility] Work Phone: 1(459) 926-377205-26-2025 Discharge summary Author Diana [facility] Note Date/Time October 04, 2024 12:14 am [facility] Medical Records Department [address] [place] [address] Emergency Department Summary 10/03/24 MR#: [id number] Acct: [id number] Name: JOYCE SOLOMON Rep #:[id number] : 1935 89 From: Diana Panda PCP: Dr. Bridget Swenson MD Status :REG ER Location: ED HPI History of Present Illness Chief Complaint: Weakness Informant: patient Narrative Narrative: Patient is 89-year-old female with history of NEL on CPAP, hemorrhagic stroke, hypertension, proximal atrial fibrillation presenting for fall today, increased delirium and weakness. Patient was actually seen in our ER 2 days ago for confusion. Family was concerned about her ability to live at home alone and patient was apparently speaking gibberish when home health arrived. She had recently been in at [facility] but apparently could not afford it. She did have a urinalysis that was concerning for infection and patient was prescribed Macrobid. Family reports that they do not think patient started her antibiotics as they are still all of the pills in the container. They state that she has been taking her medications inappropriately at home. She has been seeing things suchas people that do not talk to her. She states she has been hearing things like a loud noise but is a hard time describing this. She had a fall today. Patientstates she fell this morning and states her leg buckled. Squad came because patient cannot get herself up but she refused transportation at this time. She has noted to have bruising to her back and is having increased pain of her rightflank today. Patient states she did not hit her head. She denies any associated nausea or vomiting. Denies any chest pain. Patient denies any urinary symptoms. She states she feels "a little constipated". Family states that they will see her talking to herself and has been occurring with increased frequency since April but is gotten much worse lately. They are concerned about her ability to live home alone and feel that she is significantly worsenedover the past few days. [facility] Medical History Aphasia History of hemorrhagic cerebrovascular accident (CVA) with residual deficit Daytime somnolence Elevated PTHrP level Venous insufficiency of both lower extremities Cerebral amyloid angiopathy Hypothyroidism Hyperlipidemia Essential (primary) hypertension Hypertension Lumbar compression fracture Closed compression fracture of L2 vertebra COPD (chronic obstructive pulmonary disease) Wrist fracture, right Shoulder fracture, left Iron deficiency anemia Osteoporosis Vitamin D deficiency Hiatal hernia Restless legs History of stress test HTN (hypertension) Scarlet fever Sleep apnea Pulmonary hypertension Secondary pulmonary arterial hypertension Paroxysmal atrial fibrillation Incomplete right bundle branch block Obstructive sleep apnea Obesity Essential (primary) hypertension Multiple fractures of ribs, left side, initial encounter for closed fracture Hypertensive emergency Pneumonia Limb weakness Difficulty balancing Thyroid disease Migraines Fatigue Arthritis Community acquired pneumonia Home Medications ?Medication ?Instructions ?Recorded ?Last Taken ?Type denosumab 60 mg/mL subcutaneous 60 mg subcut [id number] osteoporosis 10/08/19 08/24/21 History syringe (Prolia) aspirin 81 mg chewable tablet 1 tab PO DAILY Heart hea lth 05/16/24 05/30/24 History acetaminophen 500 mg tablet 1,000 mg (2 x 500 mg) PO Q 8 #0 tabs 07/20/24 Unknown Rx losartan 100 mg tablet 100 mg PO DAILY #0 tabs 07/10 06/05 Unknown Rx metoprolol tartrate 100 mg tablet 100 mg PO BID 30 day s #60 tabs 07/20/24 Unknown Rx ascorbic acid (vitamin C) 500 mg 500 mg PO DAILY suppl ement 04/21/25 Unknown History tablet (C-500) cholecalciferol (vitamin D3) 25 2,000 unit PO DAILY srivastava pplement 08/30/24 Unknown History mcg (1,000 unit) capsule magnesium oxide 420 mg tablet 420 mg PO DAILY 08/30/24 Unknown History pramipexole 1 mg tablet 3 mg (3 x 1 mg) PO QHS 30 da ys #90 08/31/24 Unknown Rx tabs rosuvastatin 20 mg tablet 20 mg PO QHS 1 month #30 tab s 08/31/24 Unknown Rx amlodipine 10 mg tablet 10 mg PO DAILY #0 tabs 09/03 Unknown Rx nitrofurantoin 100 mg PO Q12H 5 days #10 ca ps 10/01/24 Unknown Rx monohydrate/macrocrystals 100 mg capsule (Macrobid) docusate sodium 100 mg capsule 100 mg PO DAILY 5 Unknown History (Dulcolax Stool Softener (docusate)) ferrous sulfate 325 mg (65 mg 325 mg PO DAILY 10/03/24 Unknown History iron) tablet (iron) furosemide 40 mg tablet (Lasix) 40 mg PO DAILY 5 Unknown History hydrocodone 7.5 mg-acetaminophen 1 tab PO 4X/DAY PRN P RN pain 10/03/24 Unknown History 325 mg tablet Allergy/AdvReac Type Severity Reaction Status Date / Time cefazolin (From Ancef) Allergy Severe Swelling Verified 10/03/24 17:47 silk Allergy Intermediate itching Verified 10/03/24 17:47 duloxetine (From Cymbalta) Allergy Unknown Hives Verified 10/03/24 17:47 shellfish derived Allergy Unknown Other Verified 10/03/24 17:47 beet (Beet) Allergy Hives Verified 10/03/24 17:47 cantaloupe Allergy Food Verified 10/03/24 17:47 Allergy eggplant Allergy Hives Verified 10/03/24 17:47 Food Allergies: Uncoded Allergy Itching Verified 10/03/24 17:47 levofloxacin (From Levaquin) Allergy Unknown Verified 10/03/24 17:47 mold Allergy NEEDS Verified 10/03/24 17:47 FOLLOW-UP Penicillins Allergy Unknown Verified 10/03/24 17:47 tomato Allergy Food Verified 10/03/24 17:47 Allergy wheat Allergy Hives Verified 10/03/24 17:47 gabapentin (From Neurontin) AdvReac Other Verified 10/03/24 17:47 meloxicam (From Mobic) AdvReac Other Verified 10/03/24 17:47 oxycodone (From OxyIR) AdvReac Nausea Verified 10/03/24 17:47 risedronate sodium (From AdvReac Other Verified 10/03/24 17:47 Actonel) Family History Other Cancer Diabetes Heart disease Surgical History H/O radiofrequency ablation (RFA) of nerve of lumbar spine History of kyphoplasty Hx of tonsillectomy H/O partial thyroidectomy History of appendectomy History of cholecystectomy Hx of bilateral cataract extraction History of thyroid surgery Hx of appendectomy History of tonsillectomy Hx of cholecystectomy History of thymectomy History of parathyroidectomy Social History adopted: No household members: none housing: [facility] number of children: 2 current occupational status: retired current occupational exposures/hazards: No pets and animals: No leisure activities: reading and other history of recent travel: Yes (concert in [place]) Smoking Status: Never smoker alcohol intake: never substance use type: does not use caffeine: No ROS ROS ED Constitutional Constitutional ED: Denies chills or fever(s) Cardiovascular Cardiovascular: Denies chest pain Respiratory/Chest Respiratory/Chest: Denies cough or dyspnea Gastrointestinal Gastrointestinal: Reports constipation; Denies abdominal pain, nausea or vomiting Genitourinary Genitourinary ED: Denies dysuria or urinary frequency Musculoskeletal Musculoskeletal: Reports arthralgias, back pain and myalgias; Denies neck pain Integumentary Denies rash Neurologic Neurologic: Reports weakness; Denies headache(s) Psychiatric Psychiatric: Reports depression and other Details: Patient states she has been seeing people who will not talk to her. EXAM Physical Exam Const Vital Signs: 10/03/24 17:44 10/03/24 19:05 10/03/24 20:30 Temperature 98.5 F Temperature Source Oral Pulse Rate 18 L 93 Respiratory Rate 16 16 Respiratory Effort Normal Respiratory Pattern Normal Blood Pressure 179/63 H 114/93 H Blood Pressure Mean 101 100 Pulse Ox 99 99 Oxygen Delivery Method Room Air Room Air 10/03/24 22:00 Temperature 97.9 F Temperature Source Oral Pulse Rate 88 Respiratory Rate 16 Respiratory Effort Respiratory Pattern Blood Pressure 164/48 H Blood Pressure Mean 86 Pulse Ox 99 Oxygen Delivery Method Room Air Positive well nourished, well developed and unkempt General Appearance ED: unkempt and well developed HEENT Reports moist mucous membranes Eyes PERRL Neck supple and no JVD General: Negative for tenderness Chest Wall inspection of chest normal Chest Narrative: No chest wall crepitus. Mild tenderness palpation over the right mid anterior chest wall Resp normal respiratory effort and clear to auscultation bilaterally Cardio regular rate and regular rhythm GI normal to inspection, nondistended, normoactive bowel sounds and non-tender Auscultation: normoactive bowel sounds Palpation: soft Back/Spine no CVA tenderness Thoracic Spine / Upper Back: Negative for thoracic spinal tenderness Lumbar Spine / Lower Back: Negative for lumbar spinal tenderness Extremity Extremity Narrative: No obvious deformity. Tenderness palpation with range of motion of the left hip. Pelvis is stable. Neuro Neuro Narrative: Oriented to name and location. Patient is intermittently delirious and slightlyconfused but answers other questions quite appropriately. Sensorium / Orientation: alert Motor Exam: general weakness Psych mental status grossly normal Psych Narrative: Does report visual hallucinations of seeing people. Otherwise acting appropriately. Appearance: unkempt Skin no rashes or lesions noted Skin Narrative: Small area of erythema of the right lower back however is nontender to palpation. Small amount of bruising noted to the left anterior distal thigh. Mild tenderness there. Trauma: Negative for abrasion MDM MDM MDM Narrative Medical decision making narrative: Patient evaluated for what sounds like delirium, fall today and with inability to get herself up. She had a urinalysis 2 days ago that grew 80,000-100,000 CFU's per mL of gram-positive cocci (sensitivity still pending) but she did not start taking her antibiotics. Differential includes toxic metabolic encephalopathy, intracranial hemorrhage, stroke, hip fracture, acute delirium secondary to urinary tract infection, STACY, symptomatic anemia and sepsis. Pelvic x-ray with left hip reviewed by myself does not show any acute fracture. CT of the brain given her delirium and reported fall that was unwitnessed is obtained to look for intracranial hemorrhage. CT of the cervical spine is obtained to look for any acute traumatic cervical spinal injury. CT of the chest is obtained to look for any rib fracture given that she has pain over her right chest wall in the setting of a fall. Lab work shows mild anemia which appears to be near her baseline. No leukocytosis. BMP largely normal with no STACY or acute electro abnormalities. Urinalysis does show 2+ bacteria. Given her prior culture which was on treated and her acute delirium I do think she would benefit from IV antibiotics. Will be started on meropenem given her allergy to both Ancef and Levaquin. Given that patient did not have a positive culture 2 days ago, has not been treated and is now having delirium/visual hallucinations and falls as well as having difficulty taking her medications at home I do think she would benefit from admission to the hospital. Case discussed with hospitalist, Dr. Gaspar. He did request to add on a urine drug screen which is sent. Lab Data Attestation: I reviewed the patient's lab results. Labs: Laboratory Results - last 24 hr 10/03/24 10/03/24 20:11 20:30 WBC 10.3 RBC 3.54 L Hgb 10.4 L Hct 32.2 L MCV 91.0 MCH 29.4 MCHC 32.3 RDW Std Deviation 44.4 H RDW Coeff of Tiffani 13.3 Plt Count 368 MPV 9.2 Immature Gran % (Auto) 0.600 Neut % (Auto) 79.6 H Lymph % (Auto) 9.6 L Emanuel % (Auto) 9.8 Eos % (Auto) 0.1 Baso % (Auto) 0.3 Absolute Neuts (auto) 8.2 H Absolute Lymphs (auto) 0.99 Nucleated RBC % 0 Sodium 134 Potassium 4.2 Chloride 96 L Carbon Dioxide 28.4 Anion Gap 11 BUN 35 H Creatinine 1.04 Estim Creat Clear Calc 35.97 L Est GFR (MDRD) Non-Af 52 L BUN/Creatinine Ratio 33.3 H Glucose 121 H Calcium 8.4 Urine Color Straw Urine Clarity Clear Urine pH 6.5 Ur Specific [place] 1.010 Urine Protein 30 H Urine Glucose (UA) Normal Urine Ketones Negative Urine Occult Blood 25 H Urine Nitrite Negative Urine Bilirubin Negative Urine Urobilinogen Normal Ur Leukocyte Esterase Negative Urine RBC 0-5 SEEN Urine WBC 0-5 SEEN Ur Squamous Epith Cells 0 SEEN Urine Bacteria 2+ Urine Mucus 0 SEEN Urine Opiates Screen PRESUMPTIVE POSITIVE U Buprenorphine Qual NEGATIVE Ur Oxycodone Screen NEGATIVE Urine Methadone Screen NEGATIVE Urine Fentanyl Screen NEGATIVE Ur Barbiturates Screen NEGATIVE Ur Phencyclidine Scrn NEGATIVE Ur Amphetamines Screen NEGATIVE U Benzodiazepines Scrn NEGATIVE Urine Cocaine Screen NEGATIVE U Cannabinoids Screen NEGATIVE Radiography Diagnostic Testing: Clinical Impression(s) from Imaging Studies Cervical Spine CT 10/03/24 19:44 IMPRESSION: NO ACUTE CERVICAL FRACTURE. DEGENERATIVE CHANGES. Reading Location: [facility] Chest CT 10/03/24 19:44 IMPRESSION: 1. No acute thoracic finding. 2. Chronic findings as described. Reading Location: [facility] Brain CT 10/03/24 19:45 IMPRESSION: No acute intracranial finding. Reading Location: [facility] Hip/Pelvis X-Ray 10/03/24 21:28 IMPRESSION: DEGENERATIVE OSTEOARTHROSIS. NO ACUTE FINDINGS. Reading Location: [facility] Rhythm Strip Rhythm Strip: Sinus Rhythm Rate: 88 Ectopy: None EKG Initial EKG: Attestation: I personally reviewed and interpreted this EKG as follows: Interpretation: Sinus Rhythm Comments: Normal sinus rhythm rate of 88 bpm Left axis deviation Right bundle branch block Minimal voltage catcher for LVH Normal ST segments Discharge Plan Triage Chief Complaint: Weakness ED Provider: Diana Snow Dx/Rx/DC Orders Clinical Impression: Acute UTI, Noncompliance, Acute delirium, Fall Prescriptions: No Action Prolia 60 mg/mL syringe 60 mg SC [id number] Patient Comments: due February Rx Instructions: due in february aspirin 81 mg tablet,chewable 1 tab PO DAILY metoprolol tartrate 100 mg Tablet 100 mg PO BID 30 Days Qty: 60 0RF acetaminophen 500 mg Tablet 1,000 mg PO Q8 Qty: 0 0RF losartan 100 mg Tablet 100 mg PO DAILY Qty: 0 0RF magnesium oxide 420 mg tablet 420 mg PO DAILY ascorbic acid (vitamin C) [C-500] 500 mg tablet 500 mg PO DAILY cholecalciferol (vitamin D3) 25 mcg (1,000 unit) capsule 2,000 unit PO DAILY pramipexole 1 mg Tablet 3 mg PO QHS 30 Days Qty: 90 0RF Rx Instructions: Pramipexole and tramadol might make drowsiness worse therefore try to avoid together rosuvastatin 20 mg tablet 20 mg PO QHS 30 Days Qty: 30 2RF amlodipine 10 mg Tablet 10 mg PO DAILY Qty: 0 0RF Rx Instructions: Hold for SBP less than 130 mmHg nitrofurantoin monohyd/m-cryst [Macrobid] 100 mg capsule 100 mg PO Q12H 5 Days Qty: 10 0RF Rx Instructions: must administer with a meal/food furosemide [Lasix] 40 mg tablet 40 mg PO DAILY ferrous sulfate [iron] 325 mg (65 mg iron) tablet 325 mg PO DAILY docusate sodium [Dulcolax Stool Softener (dss)] 100 mg capsule 100 mg PO DAILY hydrocodone-acetaminophen 7.5-325 mg tablet 1 tab PO 4X/DAY PRN PRN (Reason: pain) Primary Care Provider: Bridget Swenson Referrals: Bridget Swenson MD [Primary Care Provider] - Print Language: [place]ican Disposition Disposition: Acute Care Hospital [facility] What to do if you have Problems For any increased pain, shortness of breath, bleeding, nausea or vomiting, chestpain, or any unexpected problems, contact your Primary Care Provider. Call [facility] ([phone]) or report to the closest Emergency Room. Call 911 if necessary. 10/04/24 0014 <Electronically signed by Diana Snow DO> Cosigner Signature (if applicable): CC: Dr. Bridget Swenson MD ~ Signed [facility] Work Phone: 1(566) 749-954305-25-2025 Radiology Diagnostic study [facility]05-25-2025 Radiology Diagnostic study [facility]05-25-2025 Radiology Diagnostic study [facility] 10-03-2024 Radiology Diagnostic study [facility]04-25-2025 [facility]04-22-2025 [facility] 08-30-2024 Evaluation note* Diagnosis Onset Date Resolution Status Admit Date Aphasia inactive August 30 2:01pm Altered level of consciousness acute September 01, 2024 2:05am Cerebral amyloid angiopathy acute September 01, 2024 2:05am Hypertensive urgency acute Apri l 2024 2:05am Obesity (BMI 30.0-34.9) acute A pril 2024 2:05am NEL on CPAP acute September 01, 2 025 2:05am History of hemorrhagic cerebrovascular accident (CVA) with residual deficit inactive August 2:05am Adverse drug reaction resolved October 06, 2024 2:26pm Fall resolved October 06, 2024 2:26pm Noncompliance resolved October 06, 2 025 2:26pm Toxic encephalopathy resolved October 06, 2024 2:26pm Chronic back pain inactive September 2:26pm History of hemorrhagic cerebrovascular accident (CVA) with residual deficit inactive October 06, 2024 2:26pm Dyspnea on exertion chronic November 19, 2024 10:23am Essential (primary) hypertension chr onic November 19, 2024 10:23am Paroxysmal atrial fibrillation chron ic November 19, 2024 10:23am Chest pressure inactive November 19, 2024 10:23am [facility] Work Phone: 1(590) 840-942304-21-2025 Evaluation note* Diagnosis Onset Date Resolution Status Admit Date Aphasia inactive August 30 2:01pm Altered level of consciousness acute September 01, 2024 2:05am Cerebral amyloid angiopathy acute September 01, 2024 2:05am Hypertensive urgency acute Apri l 2024 2:05am Obesity (BMI 30.0-34.9) acute A pril 2024 2:05am NEL on CPAP acute September 01, 2 025 2:05am History of hemorrhagic cerebrovascular accident (CVA) with residual deficit inactive August 2:05am Adverse drug reaction resolved October 06, 2024 2:26pm Fall resolved October 06, 2024 2:26pm Noncompliance resolved October 06, 2 025 2:26pm Toxic encephalopathy resolved October 06, 2024 2:26pm Chronic back pain inactive September 2:26pm History of hemorrhagic cerebrovascular accident (CVA) with residual deficit inactive October 06, 2024 2:26pm Dyspnea on exertion chronic November 19, 2024 10:23am Essential (primary) hypertension chr onic November 19, 2024 10:23am Paroxysmal atrial fibrillation chron ic November 19, 2024 10:23am Chest pressure inactive November 19, 2024 10:23am Dyspnea on exertion chronic Augus t 2024 2:20pm Essential (primary) hypertension chr onic December 17, 2024 2:20pm Paroxysmal atrial fibrillation chron ic December 17, 2024 2:20pm Chest pressure inactive December 2:20pm [facility] Work Phone: 1(411) 657-295504-21-2025 Radiology Diagnostic study [facility]04-21-2025 Radiology Diagnostic study [facility]04-21-2025 Radiology Diagnostic study [facility] 07-20-2024 Discharge summary Author Aleks Rolando [facility] Note Date/Time July 20, 2024 7:2 7pm [facility] Medical Records Department [address] [place] [id number] Discharge Summary 07/20/241914 MR#: [id number] Acct: [id number] Name: JOYCE SOLOMON Rep #:[id number] : 1935 89 From: Aleks Marshall MD PCP: Dr. Bridget Swenson MD Status :ADM IN Location: [place] [address] Providers Date of Admission: 06/30/24 Primary Care Physician: Dr. Bridget Swenson MD Consultations 07/06/24 14:58 Consult: Hospice / Palliative Care Routine Consulting Provider: [facility] Reason for Consult: PALLIATIVE - COPD, hx CVA EMERGENT Consult: No MD Notified: Yes Date Notified: 07/06/24 Time Notified: 14:58 Method of Notification: Text Reason For Visit: L1, L2 FRACTURE; MULTIPLE RIB FX, RIGHT 5TH Diagnosis Discharge Diagnosis (1) Debility: Status: Acute Code(s): R53.81 - Other malaise (2) Multiple falls: Status: Acute Code(s): R29.6 - Repeated falls (3) Multiple rib fractures: Status: Acute Code(s): S22.49XA - Multiple fractures of ribs, unspecified side, initial encounter for closed fracture (4) Compression fracture of L2: Status: Acute Code(s): S32.020A - Wedge compression fracture of second lumbar vertebra, initial encounter for closed fracture (5) Compression fracture of L3 vertebra: Status: Resolved Code(s): S32.030A - Wedge compression fracture of third lumbar vertebra, initial encounter for closed fracture (6) Fracture of fifth metatarsal bone of right foot: Status: Inactive Code(s): S92.351A - Displaced fracture of fifth metatarsal bone, right foot, initial encounter for closed fracture (7) Multiple transverse process fractures: Status: Acute (8) Subarachnoid hemorrhage: Status: Acute Code(s): I60.9 - Nontraumatic subarachnoid hemorrhage, unspecified (9) Cerebral amyloid angiopathy: Status: Acute Code(s): E85.4 - Organ-limited amyloidosis; I68.0 - Cerebral amyloid angiopathy (10) Restless leg syndrome: Status: Chronic Code(s): G25.81 - Restless legs syndrome (11) Obstructive sleep apnea: Status: Acute Code(s): G47.33 - Obstructive sleep apnea (adult) (pediatric) (12) Afib: Status: Inactive Code(s): I48.91 - Unspecified atrial fibrillation (13) Essential (primary) hypertension: Status: Acute Code(s): I10 - Essential (primary) hypertension (14) Hypomagnesemia: Status: Resolved Code(s): E83.42 - Hypomagnesemia (15) Insomnia: Status: Acute Code(s): G47.00 - Insomnia, unspecified (16) Urine retention: Status: Resolved Code(s): R33.9 - Retention of urine, unspecified (17) Osteoporosis: Status: Acute Code(s): M81.0 - Age-related osteoporosis without current pathological fracture Qualifiers: Osteoporosis type: age-related Presence of current pathological fracture: without current pathological fracture Qualified Code(s): M81.0 - Age-related osteoporosis without current pathological fracture Plan 89 year old female with below past medical history hospitalized for fall, multiple rib fractures, right 5th metatarsal fracture, compression fracture of L2, L3, right transverse process fracture of L1, L2, treated nonsurgically, admitted to TCU with debility, here for rehabilitation, strengthening, prior to disposition determination. * Debility - PT/OT. * Pain - Tylenol 1000mg q8, Tramadol 50mg q6 prn pain (1-10), Lidoderm 1 patch td daily. * Bowel - Miralax 17gm daily, Senna/colace 1 tablet bid. * Adult immunization - Administer pneumonia vaccine, covid vaccine, flu vaccine as appropriate. * DVT prophylaxis - Add SCD's. * Hemorrhagic stroke - Aspirin 81mg daily. * Edema - Furosemide 40mg daily. * Hypertension - Metoprolol 50mg bid, Losartan 50mg daily. * Hypomagnesemia - Magnesium chloride 128mg daily. * Insomnia - Melatonin 3mg qhs. * Muscle spasm - Robaxin 500mg tid. * NEL/somnolence - Provigil 100mg daily. * Restless leg syndrome - Mirapex 3mg qhs. * Urinary retention - Tamsulosin 0.4mg daily. Medications at Discharge Home Medications denosumab 60 mg/mL subcutaneous syringe (Prolia) 60 mg subcut [id number] osteoporosis 10/08/19 aspirin 81 mg chewable tablet 1 tab PO DAILY Heart health 05/16/24 melatonin 3 mg capsule 3 mg PO QHS insomnia #1 cap 05/28/24 furosemide 40 mg tablet 40 mg PO DAILY edema 30 days #30 tabs 06/08/24 acetaminophen 500 mg tablet 1,000 mg (2 x 500 mg) PO Q8 #0 tabs 07/20/24 lidocaine 5 % topical patch 1 patch topical DAILY 30 days #30 ea 07/20/24 losartan 100 mg tablet 100 mg PO DAILY #0 tabs 07/20/24 magnesium chloride 64 mg (magnesium chloride) tablet,delayed release (Mag 64) 128 mg (2 x 64 mg) PO DAILY 30 days #60 tabs 07/20/24 metoprolol tartrate 100 mg tablet 100 mg PO BID 30 days #60 tabs 07/20/24 pramipexole 1 mg tablet 3 mg (3 x 1 mg) PO QHS 30 days #90 tabs 07/20/24 tamsulosin 0.4 mg capsule 0.4 mg PO DAILY@1730 30 days #30 caps 07/20/24 tramadol 50 mg tablet 50 mg PO Q6H PRN PRN Pain Score 1-10 Or Pre Pt/Ot 7 days #28 tabs 07/20/24 Hospital Course Operations None Procedures None Summary of Care Provided Minutes Spent on Discharge: 35 Hospital Course: 89 year old female with below past medical history hospitalized for fall, multiple rib fractures, right 5th metatarsal fracture, compression fracture of L2, L3, right transverse process fracture of L1, L2, treated nonsurgically, admitted to TCU with debility, here for rehabilitation, strengthening, prior to disposition determination. Discharge home alone 07/26/2024, [facility] PT/OT/SN, Hospital Bed. Hospital Bed: Patient requires a hospital bed due to needing frequent changes in position to alleviate pain, prevent ongoing pressure areas, assist in healingof current pressure areas, prevent aspiration or due to respiratory condition that is not feasible in an ordinary bed. Physical Exam Const alert General Appearance: cooperative HEENT normocephalic Eyes PERRL and EOMs intact bilaterally Neck supple, no JVD and no carotid bruits Resp normal respiratory effort, normal air movement and clear to auscultation bilaterally Cardio regular rate and regular rhythm GI normal to inspection, nondistended, normoactive bowel sounds, non-tender and non-distended Extremity normal capillary refill General Extremity: Negative for edema Skin no rashes or lesions noted General Skin Exam: no breakdown Psych affect normal Appearance: appropriate Weight / BMI Weight Weight: 76.204 kg Body Mass Index (BMI) 33.0 ABG / Lab / Microbiology Data 07/19/24 05:14 07/15/24 05:05 Microbiology: Microbiology 07/17/24 22:28 Mucosa - Nose Respiratory Panel (PCR) - Final 07/17/24 22:00 Nasal Secretion SARS-CoV-2 Antigen (Rapid) - Final 07/15/24 Unknown Stool Stool Occult Blood (NAVNEET) - Final Radiography Diagnostic Testing: Radiology Impression Chest X-Ray 07/20/24 12:55 IMPRESSION: 1. Small esophageal hiatal hernia. 2. Pulmonary venous congestion. Reading Location: [facility] D/C Instructions Discharge Diet: No restrictions Discharge Activity: Return to Normal Activity, May Shower and Use Walker Weight Bearing Status: Weight bearing as tolerated (Right lower extremity.) Call your doctor if you observe: Fever of 101 or Higher, Inability to urinate, Inability to have a bowel movement, Shortness of breath, Dizziness, Fainting spells, Swelling in the ankles, Chest pain and Uncontrolled pain DC O2, CPAP, BIPAP Needs Home O2 Discharge instructions: No Additional Instructions: Discharge home alone 07/26/2024, [facility] PT/OT/SN, Hospital Bed. Hospital Bed: Patient requires a hospital bed due to needing frequent changes in position to alleviate pain, prevent ongoing pressure areas, assist in healingof current pressure areas, prevent aspiration or due to respiratory condition that is not feasible in an ordinary bed. Please Follow Up With: Dr. Butler When: As scheduled. Meaningful Use Info Meaningful Use Meaningful Use Diagnoses (Choose all that apply): None applicable Ischemic Stroke Statin Dosing Therapy Reference: STATIN DOSE THERAPY REFERENCE: * Patients > 75 years receive moderate or high dose statin therapy. * Patients 75 years or YOUNGER should receive HIGH intensity statin dose unless contraindicated. You will be required to document reason for non-treatment if statin daily dose does not meet guidelines. HIGH DOSE STATIN THERAPY DAILY Atorvastatin > than or = to 40 mg Rosuvastatin > than or = to 20 mg Amlodipine + Atorvastatin > than or = to 2.5/40 mg Ezetimibe + Simvastatin 10/80 mg Simvastatin 80mg Discharge Plan Admission Admit Date/Time: 06/30/24 18:43 Primary Reason for Your Visit: Debility. Attending Provider: Aleks Marshall Chi Primary Care Provider: Bridget Swenson Consulting Providers: Juan José Marshall; Marisol Prather; Jaja Gross; Sofia Aguila; Monik Crocker MANAGER PHP; Nelsy Copeland Instructions Additional Instructions / Restrictions: Discharge home alone 07/26/2024, [facility] PT/OT/SN, Hospital Bed. Hospital Bed: Patient requires a hospital bed due to needing frequent changes in position to alleviate pain, prevent ongoing pressure areas, assist in healingof current pressure areas, prevent aspiration or due to respiratory condition that is not feasible in an ordinary bed. Discharge Orders/Prescriptions Prescriptions: New pramipexole 1 mg Tablet 3 mg PO QHS 30 Days Qty: 90 0RF metoprolol tartrate 100 mg Tablet 100 mg PO BID 30 Days Qty: 60 0RF tramadol 50 mg Tablet 50 mg PO Q6H PRN PRN (Reason: Pain Score 1-10 Or Pre Pt/Ot) 7 Days Qty: 28 0RF acetaminophen 500 mg Tablet 1,000 mg PO Q8 Qty: 0 0RF tamsulosin 0.4 mg Capsule 0.4 mg PO DAILY@1730 30 Days Qty: 30 0RF lidocaine 5 % Adhesive Patch,Medicated 1 patch topical DAILY 30 Days Qty: 30 0RF losartan 100 mg Tablet 100 mg PO DAILY Qty: 0 0RF magnesium chloride [Mag 64] 64 mg Tablet,Delayed Release (Dr/Ec) 128 mg PO DAILY 30 Days Qty: 60 0RF Continued Prolia 60 mg/mL syringe 60 mg SC [id number] Patient Comments: due February Rx Instructions: due in february aspirin 81 mg tablet,chewable 1 tab PO DAILY melatonin 3 mg capsule 3 mg PO QHS Qty: 1 0RF furosemide 40 mg Tablet 40 mg PO DAILY 30 Days Qty: 30 0RF Discontinued magnesium chloride [Mag 64] 64 mg Tablet,Delayed Release (Dr/Ec) 128 mg PO QHS Qty: 1 0RF tramadol 50 mg Tablet 50 mg PO Q6H PRN PRN (Reason: Pain Score 1-10 Or Pre Pt/Ot) 7 Days Qty: 28 0RF tamsulosin 0.4 mg Capsule 0.4 mg PO DAILY@1730 30 Days Qty: 30 0RF lidocaine 5 % Adhesive Patch,Medicated 1 patch topical DAILY 30 Days Qty: 30 0RF metoprolol tartrate 50 mg Tablet 50 mg PO BID 30 Days Qty: 60 0RF methocarbamol 500 mg tablet 500 mg PO TID magnesium oxide 400 mg (241.3 mg magnesium) tablet 400 mg PO DAILY sennosides-docusate sodium [Senna with Docusate Sodium] 8.6-50 mg tablet 1 tab-cap PO BID polyethylene glycol 3350 17 gram/dose powder 17 g PO DAILY acetaminophen 500 mg Tablet 650 mg PO Q4H PRN (Reason: pain) losartan 100 mg Tablet 50 mg PO DAILY warfarin 3 mg tablet 3 mg PO DAILY modafinil 100 mg tablet 100 mg PO DAILY pramipexole 3 mg tablet extended release 24 hr 3 mg PO QHS Referrals / Follow Up: Bridget Swenson MD [Primary Care Provider] - Jolie Rodriguez DPM [Med Staff - Active Staff] - 08/11/24 11:00 am Disposition Disposition (needs filled in before D/C Order can be placed): Home Health Service 07/20/241926 <Electronically signed by Aleks Marshall MD> Cosigner Signature (if applicable): CC: Dr. Bridget Swenson MD; Dr. Aleks Marshall MD~ Signed [facility] Work Phone: 1(729) 669-869203-11-2025 [facility]03-11-2025 Radiology Diagnostic study [facility]02-20-2025 Progress note Author Wanda Caraballo [facility] Note Date/Time July 01, 2024 1:52pm [facility] Medical Records Department [address] [place] [address] Progress Note - Pharmacy 07/01/24 1429 MR#: [id number] Acct: [id number] Name: JOYCE SOLOMON Rep #:[id number] : 1935 89 From: Wanda Caraballo PCP: Dr. Bridget Swenson MD Status :ADM IN Location: [place] [address] TCU RX Drug Regimen Review Subjective/Objective Subjective/Objective Subjective: 89 YOF admitted to TCU 06/30/24 s/p hospitalization at an outside facility secondary to a fall. Admitted to TCU for rehabilitation and strengthening prior to discharge home where she resides alone. Objective: Allergies cefazolin (From Ancef) Allergy (Severe, Verified 05/11/24 11:51) Swelling Thoat and mouth swelling silk Allergy (Intermediate, Verified 05/11/24 11:51) itching duloxetine (From Cymbalta) Allergy (Unknown, Verified 05/11/24 11:51) Hives shellfish derived Allergy (Unknown, Verified 05/17/24 15:53) Other Throat irritation beet (Beet) Allergy (Verified 05/11/24 11:51) Hives cantaloupe Allergy (Verified 05/11/24 11:51) Food Allergy HIVES eggplant Allergy (Verified 05/11/24 11:51) Hives Food Allergies: Uncoded Allergy (Verified 05/11/24 11:51) Itching fermented foods, concentrates levofloxacin (From Levaquin) Allergy (Verified 05/11/24 11:51) Unknown mold Allergy (Verified 05/11/24 11:51) NEEDS FOLLOW-UP Penicillins Allergy (Verified 05/11/24 11:51) Unknown tomato Allergy (Verified 05/11/24 11:51) Food Allergy wheat Allergy (Verified 05/11/24 11:51) Hives gabapentin (From Neurontin) Adverse Reaction (Verified 05/11/24 11:51) Other meloxicam (From Mobic) Adverse Reaction (Verified 05/11/24 11:51) Other oxycodone (From OxyIR) Adverse Reaction (Verified 05/11/24 11:51) Nausea risedronate sodium (From Actonel) Adverse Reaction (Verified 05/11/24 11:51) Other Current Medications Generic Name Dose Route Start Last Admin Trade Name Freq PRN Reason Stop Dose Admin Acetaminophen 1,000 mg 06/30/24 22:00 07/01/24 14:06 Acetaminophen 500 Mg Tablet PO 1,000 mg Q8 BATSHEVA Administration Aspirin 81 mg 07/01/24 08:00 07/01/24 09:29 Aspirin 81 Mg Tab.Chew PO 81 mg BREAKFAST BATSHEVA Administration Furosemide 40 mg 07/01/24 10:00 07/01/24 09:28 Furosemide 40 Mg Tablet PO 40 mg DAILY BATSHEVA Administration Protocol Lidocaine 1 patch 07/01/24 10:00 07/01/24 09:29 Lidocaine 5% Patch TOPICAL 1 patch DAILY BATSHEVA Administration Losartan Potassium 100 mg 07/01/24 10:00 07/01/24 06:34 Losartan Potassium 100 Mg Tablet PO 100 mg DAILY BATSHEVA Administration Protocol Magnesium Chloride 128 mg 07/01/24 10:00 07/01/24 09:28 Magnesium Chloride 64 Mg Delay Rel.Tablet PO 128 mg DAILY BATSHEVA Administration Melatonin 3 mg 06/30/24 22:00 06/30/24 21:54 Melatonin 3 Mg Tablet PO 3 mg QHS BATSHEVA Administration Methocarbamol 500 mg 06/30/24 22:00 07/01/24 14:06 Methocarbamol 500 Mg Tablet PO 500 mg TID BATSHEVA Administration Metoprolol Tartrate 50 mg 06/30/24 22:00 07/01/24 09:28 Metoprolol Tartrate 50 Mg Tablet PO 50 mg BID BATSHEVA Administration Protocol Modafinil 100 mg 07/02/24 10:00 Modafinil 200 Mg Tablet PO DAILY BATSHEVA Polyethylene Glycol 17 gm 07/01/24 10:00 07/01/24 09:29 Polyethylene Glycol 3350 17 Gm Packet PO 17 gm DAILY BATSHEVA Administration Pramipexole Dihydrochloride 3 mg 06/30/24 22:00 06/30/24 21:54 Pramipexole Di-Hcl 1 Mg Tablet PO 3 mg QHS [facility] Administration Senna/Docusate Sodium 1 tablet 06/30/24 22:00 07/01/24 09:29 Senna/Docusate Sodium 1 Tablet PO 1 tablet BID BATSHEVA Administration Tamsulosin HCl 0.4 mg 07/01/24 17:30 Tamsulosin Hcl 0.4 Mg Capsule PO DAILY@1730 [facility] Tramadol HCl 50 mg 06/30/24 19:54 06/30/24 21:54 Tramadol 50 Mg Tablet PO 50 mg Q6H PRN PRN Administration Pain Score 1-10 Or Pre Pt/Ot Tuberculin PPD 0.1 ml 07/08/24 10:00 Tuberculin,Purif.Prot.Deriv. 50 Tu/Ml Vial ID 07/08/24 10:01 X1 ONE Problem List Osteoporosis (Acute) Essential (primary) hypertension (Acute) Cerebral amyloid angiopathy (Acute) Multiple transverse process fractures (Acute) Compression fracture of L2 (Acute) Multiple rib fractures (Acute) Multiple falls (Acute) Fracture of fifth metatarsal bone of right foot (Acute) Insomnia (Acute) Subarachnoid hemorrhage (Acute) Debility (Acute) Restless leg syndrome (Chronic) Obstructive sleep apnea (Acute) Vital Signs Temp Pulse Resp BP Pulse Ox O2 Del Method 97.0 F L 60 18 165/55 H 96 Room Air 06/30/24 20:38 07/01/24 09:28 07/01/24 05:35 07/01/24 07:29 06/30/24 22:00 07/01/24 05:35 Oxygen Delivery Method Room Air Weight: 75.977 kg Body Mass Index (BMI) 32.7 Sodium 137 mmol/L (136-145) 07/01/24 05:27 Potassium 4.4 mmol/L (3.5-5.1) 07/01/24 05:27 Chloride 100 mmol/L (98-107) 07/01/24 05:27 Carbon Dioxide 29.0 mmol/L (21.0-32.0) 07/01/24 05:27 Anion Gap 8 (5-15) 07/01/24 05:27 BUN 16 mg/dL (7-18) 07/01/24 05:27 Creatinine 0.72 mg/dL (0.55-1.02) 07/01/24 05:27 Est GFR (MDRD) Af Amer 99 mL/min (>60) 07/01/24 05:27 Est GFR (MDRD) Non-Af 82 mL/min (>60) 07/01/24 05:27 BUN/Creatinine Ratio 22.4 RATIO (10-20) H 07/01/24 05:27 Glucose 102 mg/dL (74-106) 07/01/24 05:27 Assessment/Plan: 1. Pain: Tylenol 1000mg PO Q8h, Lidocaine patch topically Daily, Tramadol 50mg PO Q6h PRN Pain 1-10. Please continue to monitor for S/S increased/decreased pain, PRN medication usage, local site irritation/redness. - The patient has used 1 dose of PRN tramadol for pain rated 8/10. Post- medication pain rated 0/10. Pain appears controlled at this time. 2. Hypertension/ Cardiovascular: Losartan 100mg PO daily, Lopressor 50mg PO BID,Aspirin 81mg PO Daily. Please continue to monitor BP (last 165/55), pulse (last 60), lower extremity swelling, S/S bleeding/bruising, Hgb (last 10.5 on 07/01), platelets (last 357 on 07/01). 3. Fluid Retention: Lasix 40mg PO Daily. Please continue to monitor I/O's, potassium (last 4.4 on 07/01), renal function (CrCl 44 mL/min on 07/02), BP (last 165/55). 4. Urinary retention: Flomax 0.4mg PO Daily. Please continue to monitor for urinary retention, S/S UTI, hypotension (BP 165/55). 5. Muscle Spasm: Robaxin 500mg PO TID. Please continue to monitor for oversedation, dizziness. This is a Beer's Criteria medication which can increasethe risk of fractures in the elderly population. 6. RLS: Pramipexole 3mg PO QHS. Please continue to monitor for confusion, dizziness, drowsiness, orthostatic hypotension. 7. Insomnia: Melatonin 3mg PO QHS. Please continue to monitor for medication effectiveness, oversedation. Please consider giving medication at least 2 hours prior to desired bedtime for maximal effectiveness. 8. NEL/somnolence: Modafinil 100mg PO daily. Please continue to monitor for headache, nausea, constipation. 9. General Wellness: Magnesium chloride 128mg PO Daily. 10. Bowel: Miralax 17g PO Daily, Senna/docusate 1 tab PO BID. Please continue tomonitor for increased/decreased constipation and/or diarrhea. - the patient has not had a documented bowel movement, however admission was <24hrs ago. If the patient does not have a bowel movement in the next 48-72hrs, please consider ordering a PRN medication for additional agent if clinically indicated. Psychotropic medications - The patient is not currently on any psychotropic medications at time of medication list review. Medical chart and medication regimen reviewed. The following medication irregularities or issues were identified: - No medication irregularities identified Date Date of Note: 07/01/24 07/01/24 1452 <Electronically signed by Wanda Caraballo> Wanda Caraballo Cosigner Signature (if applicable): CC: ~ Signed [facility] Work Phone: 1(175) 194-246302-20-2025 History and physical note Author Aleks Marshall [facility] Note Date/Time July 01, 2024 6:29[facility] Medical Records Department [address] [place] [id number] History & Physical Exam 06/30/242013 MR#: [id number] Acct: [id number] Name: JOYCE SOLOMON Rep #:[id number] : 1935 89 From: Aleks Marshall MD PCP: Dr. Bridget Swenson MD Status :ADM IN Location: [address] General General Date of Admission: 06/30/24 Date of Service: 07/01/24 Chief Complaint: Here for rehabilitation. HPI Narrative JOYCE SOLOMON, is a 89 Female who presents with followin06/26/2024 Admit to [facility] for ground level fall. Multiple recent falls, anticoagulation for atrial fibrillation held. Left chest tender, bilateral lower extremity edema, tender to touch, chronic. Consult neurosurgery for L2, L3 retropulsion of vertebral body into spinal canal with moderate canal narrowing. Hold anticoagulation for atrial fibrillation. Pulmonary hygiene for multiple rib fractures. Hemoglobin 9.5, transfuse if hemoglobin < 7.0. 06/28/2024 MRI lumbar spine showed no compromise or neural compression. Orthopedics recommended no surgery, LSO brace for comfort. PT/OT. 06/29/2024 No acute events overnight. Pain controlled, oxygen 2 liters per nasal cannula. PT/OT. WBAT right lower extremity, post op shoe, no surgery for right 5th metatarsalfracture. 06/30/2024 PT/OT for SNF. 06/30/2024 Admit to TCU with debility, here for rehabilitation, strengthening, prior to discharge home alone. [facility] Medical History (Updated 06/30/24 @ 20:[address] Aleks Masrhall MD) Cerebral amyloid angiopathy Essential (primary) hypertension Osteoporosis History of hemorrhagic cerebrovascular accident (CVA) with residual deficit Daytime somnolence Elevated PTHrP level Venous insufficiency of both lower extremities Hypothyroidism Hyperlipidemia Hypertension Lumbar compression fracture Closed compression fracture of L2 vertebra COPD (chronic obstructive pulmonary disease) Wrist fracture, right Shoulder fracture, left Iron deficiency anemia Vitamin D deficiency Hiatal hernia Restless legs History of stress test HTN (hypertension) Scarlet fever Sleep apnea CPAP (continuous positive airway pressure) dependence Pulmonary hypertension Secondary pulmonary arterial hypertension Paroxysmal atrial fibrillation Incomplete right bundle branch block Obstructive sleep apnea Obesity Multiple fractures of ribs, left side, initial encounter for closed fracture Hypertensive emergency Pneumonia Limb weakness Difficulty balancing Thyroid disease Migraines Fatigue Arthritis Community acquired pneumonia Home Medications ?Medication ?Instructions ?Recorded ?Last Taken ?Type denosumab 60 mg/mL subcutaneous 60 mg subcut [id number] osteoporosis 10/08/19 08/24/21 History syringe (Prolia) Held on 06/30/24. Instructions: hold aspirin 81 mg chewable tablet 1 tab PO DAILY Heart hea lth 05/16/24 05/30/24 History magnesium chloride 64 mg 128 mg (2 x 64 mg) PO QHS 05/29/24 Rx (magnesium chloride) supplement #1 TAB tablet,delayed release (Mag 64) Held on 06/30/24. Instructions: hold melatonin 3 mg capsule 3 mg PO QHS insomnia #1 cap 05/28/24 05/28/24 Rx furosemide 40 mg tablet 40 mg PO DAILY edema 30 days #30 06/08/24 Unknown Rx tabs lidocaine 5 % topical patch 1 patch topical DAILY pain 30 days 06/08/24 Unknown Rx Held on 06/30/24. #30 ea Instructions: hold metoprolol tartrate 50 mg tablet 50 mg PO BID blood pr essure 30 06/08/24 Unknown Rx days #60 tabs tamsulosin 0.4 mg capsule 0.4 mg PO DAILY@1730 urinary 06/08/24 Unknown Rx retention 30 days #30 caps tramadol 50 mg tablet 50 mg PO Q6H PRN PRN Pain Sc ore 06/08/24 Unknown Rx 1-10 Or Pre Pt/Ot 7 days #28 tabs modafinil 100 mg tablet 100 mg PO DAILY sleep apnea 06/26/24 Unknown History pramipexole 3 mg tablet,extended 3 mg PO QHS Restless legs 06/26/24 Unknown History release 24 hr warfarin 3 mg tablet 3 mg PO DAILY blood thinner 06/26/24 Unknown History Held on 06/30/24. Instructions: hold acetaminophen 500 mg tablet 650 mg PO Q4H PRN pain Unknown History losartan 100 mg tablet 50 mg PO DAILY blood pressur e 06/30/24 Unknown History magnesium oxide 400 mg (241.3 mg 400 mg PO DAILY suppl ement 06/30/24 Unknown History magnesium) tablet methocarbamol 500 mg tablet 500 mg PO TID muscle spasm s 06/30/24 Unknown History polyethylene glycol 3350 17 17 g PO DAILY stool soften er 06/30/24 Unknown History gram/dose oral powder sennosides 8.6 mg-docusate sodium 1 tab-cap PO BID sto ol softener 06/30/24 Unknown History 50 mg tablet (Senna with Docusate Sodium) Allergy/AdvReac Type Severity Reaction Status Date / Time cefazolin (From Ancef) Allergy Severe Swelling Verified 05/11/24 11:51 silk Allergy Intermediate itching Verified 05/11/24 11:51 duloxetine (From Cymbalta) Allergy Unknown Hives Verified 05/11/24 11:51 shellfish derived Allergy Unknown Other Verified 05/17/24 15:53 beet (Beet) Allergy Hives Verified 05/11/24 11:51 cantaloupe Allergy Food Verified 05/11/24 11:51 Allergy eggplant Allergy Hives Verified 05/11/24 11:51 Food Allergies: Uncoded Allergy Itching Verified 05/11/24 11:51 levofloxacin (From Levaquin) Allergy Unknown Verified 05/11/24 11:51 mold Allergy NEEDS Verified 05/11/24 11:51 FOLLOW-UP Penicillins Allergy Unknown Verified 05/11/24 11:51 tomato Allergy Food Verified 05/11/24 11:51 Allergy wheat Allergy Hives Verified 05/11/24 11:51 gabapentin (From Neurontin) AdvReac Other Verified 05/11/24 11:51 meloxicam (From Mobic) AdvReac Other Verified 05/11/24 11:51 oxycodone (From OxyIR) AdvReac Nausea Verified 05/11/24 11:51 risedronate sodium (From AdvReac Other Verified 05/11/24 11:51 Actonel) Family History Other Cancer Diabetes Heart disease Surgical History H/O radiofrequency ablation (RFA) of nerve of lumbar spine History of kyphoplasty Hx of tonsillectomy H/O partial thyroidectomy History of appendectomy History of cholecystectomy Hx of bilateral cataract extraction History of thyroid surgery Hx of appendectomy History of tonsillectomy Hx of cholecystectomy History of thymectomy History of parathyroidectomy Social History adopted: No household members: none housing: [facility] number of children: 2 current occupational status: retired current occupational exposures/hazards: No pets and animals: No leisure activities: reading and other history of recent travel: Yes ([employer] in [place]) Smoking Status: Never smoker alcohol intake: never substance use type: does not use caffeine: No ROS Constitutional Constitutional: Reports weakness; Denies chills, fever(s) or weight gain ENT HEENT: Denies headache(s), nasal congestion or nasal discharge Cardiovascular Cardiovascular: Denies chest pain or palpitations Respiratory/Chest Respiratory/Chest: Denies cough, excessive phlegm production or shortness of breath with exertion Gastrointestinal Gastrointestinal: Denies abdominal pain, nausea or vomiting Genitourinary Genitourinary: Denies dysuria Musculoskeletal Musculoskeletal: Denies joint pain or joint swelling Integumentary Integumentary: Denies rash or wounds Neurologic Neurologic: Denies focal weakness, numbness or tingling Psychiatric Psychiatric: Denies anxiety, auditory hallucinations, depression, homicidal ideation or suicidal ideation Physical Exam Const alert General Appearance: cooperative HEENT normocephalic Eyes PERRL and EOMs intact bilaterally Neck supple, no JVD and no carotid bruits Resp normal respiratory effort, normal air movement and clear to auscultation bilaterally Cardio regular rate and regular rhythm GI normal to inspection, nondistended, normoactive bowel sounds, non-tender and non-distended Extremity normal capillary refill General Extremity: Negative for edema Skin no rashes or lesions noted General Skin Exam: no breakdown Psych affect normal Appearance: appropriate Results Lab / Micro Data 07/01/24 05:27 07/01/24 05:27 Assessment & Plan Assessment/Plan (1) Debility: (2) Multiple falls: (3) Multiple rib fractures: (4) Compression fracture of L2: (5) Compression fracture of L3 vertebra: (6) Fracture of fifth metatarsal bone of right foot: (7) Multiple transverse process fractures: (8) Subarachnoid hemorrhage: (9) Cerebral amyloid angiopathy: (10) Restless leg syndrome: (11) Obstructive sleep apnea: (12) Afib: (13) Essential (primary) hypertension: (14) Hypomagnesemia: (15) Insomnia: (16) Urine retention: (17) Osteoporosis: QUALIFIERS: Osteoporosis type: age-related Presence of current pathological fracture: without current pathological fracture Qualified Code(s):M81.0 - Age-related osteoporosis without current pathological fracture PLAN: Plan 89 year old female with below past medical history hospitalized for fall, multiple rib fractures, right 5th metatarsal fracture, compression fracture of L2, L3, right transverse process fracture of L1, L2, treated nonsurgically, admitted to TCU with debility, here for rehabilitation, strengthening, prior to disposition determination. * Debility - PT/OT. * Pain - Tylenol 1000mg q8, Tramadol 50mg q6 prn pain (1-10), Lidoderm 1 patch td daily. * Bowel - Miralax 17gm daily, Senna/colace 1 tablet bid. * Adult immunization - Administer pneumonia vaccine, covid vaccine, flu vaccine as appropriate. * DVT prophylaxis - Add SCD's. * Hemorrhagic stroke - Aspirin 81mg daily. * Edema - Furosemide 40mg daily. * Hypertension - Metoprolol 50mg bid, Losartan 50mg daily. * Hypomagnesemia - Magnesium chloride 128mg daily. * Insomnia - Melatonin 3mg qhs. * Muscle spasm - Robaxin 500mg tid. * NEL/somnolence - Provigil 100mg daily. * Restless leg syndrome - Mirapex 3mg qhs. * Urinary retention - Tamsulosin 0.4mg daily. 07/01/24 0729 <Electronically signed by Aleks Marshall MD> Cosigner Signature (if applicable): CC: Dr. Bridget Swenson MD; Dr. Aleks Marshall MD~ Signed [facility] Work Phone: 1(321) 220-824702-19-2025 Evaluation note* Diagnosis Onset Date Resolution Status Admit Date Cerebral amyloid angiopathy acute June 30, 2024 6:43pm Debility acute June 30, 2024 6:43pm Essential (primary) hypertension acute June 30, 2 025 6:43pm Insomnia acute June 30, 2024 6:43pm Obstructive sleep apnea acute F ebruary 2024 6:43pm Osteoporosis acute June 6:43pm Subarachnoid hemorrhage acute F ebary 2024 6:43pm Restless leg syndrome chronic Feb ruary 2024 6:43pm Compression fracture of L2 resolved June 30, 2024 6:43pm Compression fracture of L3 vertebra resolved June 30, 2 025 6:43pm Hypomagnesemia resolved June 122024 6:43pm Multiple falls resolved June 122024 6:43pm Multiple rib fractures resolved Fe bruary 2024 6:43pm Multiple transverse process fractures resolved June 30, 2 025 6:43pm Urine retention resolved June 30, 2024 6:43pm Afib inactive June 30, 2024 6:43pm Fracture of fifth metatarsal bone of right foot inactive June 6:43pm Dyspnea on exertion chronic July 26, 2024 11:15am Essential (primary) hypertension chronic July 26, 2024 11:15am Paroxysmal atrial fibrillation chron ic July 26, 2024 11:15am Aphasia inactive August 30 2:01pm Altered level of consciousness acute September 01, 2024 2:05am Cerebral amyloid angiopathy acute September 01, 2024 2:05am Hypertensive urgency acute Apri l 2024 2:05am Obesity (BMI 30.0-34.9) acute A pril 2024 2:05am NEL on CPAP acute September 01, 2 025 2:05am History of hemorrhagic cerebrovascular accident (CVA) with residual deficit inactive August 2:05am Adverse drug reaction resolved October 06, 2024 2:26pm Fall resolved October 06, 2024 2:26pm Noncompliance resolved October 06, 2 025 2:26pm Toxic encephalopathy resolved October 06, 2024 2:26pm Chronic back pain inactive September 2:26pm History of hemorrhagic cerebrovascular accident (CVA) with residual deficit inactive October 06, 2024 2:26pm [facility] Work Phone: 1(635) 622-851202-19-2025 Evaluation note* Diagnosis Onset Date Resolution Status Admit Date Cerebral amyloid angiopathy acute June 30, 2024 6:43pm Debility acute June 30, 2024 6:43pm Essential (primary) hypertension acute June 30, 2 025 6:43pm Insomnia acute June 30, 2024 6:43pm Obstructive sleep apnea acute [facility] 2024 6:43pm Osteoporosis acute June 6:43pm Subarachnoid hemorrhage acute F [facility] 2024 6:43pm Restless leg syndrome chronic Feb ruary 2024 6:43pm Compression fracture of L2 resolved June 30, 2024 6:43pm Compression fracture of L3 vertebra resolved June 30, 2 025 6:43pm Hypomagnesemia resolved June 122024 6:43pm Multiple falls resolved June 122024 6:43pm Multiple rib fractures resolved Fe bruary 2024 6:43pm Multiple transverse process fractures resolved June 30, 2 025 6:43pm Urine retention resolved June 30, 2024 6:43pm Afib inactive June 30, 2024 6:43pm Fracture of fifth metatarsal bone of right foot inactive June 6:43pm Dyspnea on exertion chronic July 26, 2024 11:15am Essential (primary) hypertension chronic July 26, 2024 11:15am Paroxysmal atrial fibrillation chron ic July 26, 2024 11:15am Aphasia inactive August 30 2:01pm Altered level of consciousness acute September 01, 2024 2:05am Cerebral amyloid angiopathy acute September 01, 2024 2:05am Hypertensive urgency acute Apri l 2024 2:05am Obesity (BMI 30.0-34.9) acute A pril 2024 2:05am NEL on CPAP acute September 01, 025 2:05am History of hemorrhagic cerebrovascular accident (CVA) with residual deficit inactive August 2:05am Adverse drug reaction resolved October 06, 2024 2:26pm Fall resolved October 06, 2024 2:26pm Noncompliance resolved October 06, 025 2:26pm Toxic encephalopathy resolved October 06, 2024 2:26pm Chronic back pain inactive September 2:26pm History of hemorrhagic cerebrovascular accident (CVA) with residual deficit inactive October 06, 2024 2:26pm Dyspnea on exertion chronic November 19, 2024 10:23am Essential (primary) hypertension chronic November 19, 2024 10:23am Paroxysmal atrial fibrillation chron ic November 19, 2024 10:23am [facility] Work Phone: [phone] [facility]02-19-2025 NoteHNO ID: [id number] Author: SHAR GONSALEZ RN Service: Care Management Author Type: Registered Nurse Type: Care Mgt Progress Note Filed: 06/30/2024 13:02 Note Text: CARE MANAGEMENT DISCHARGE NOTE SERVICE DATE: June 30, 2024 SERVICE TIME: 1:01 PM Admission Date: 06/26/2024 LOS: 3 days Discharge Arrangement Discharge Ar[facility]ement[facility] Was an expedited discharge program used?: No Services Arranged Medical Services: Other: See Comment Caregiver Assessment Caregiver is ready, willing and able to meet the patient's needs as recommended by the inter-professional team: Yes Name of Caregiver: [facility] Transportation Arrangements Transportation Arrangements: Ambulance Transportation Agency and Phone #:: [facility] ( [facility] ) [phone] / [phone] Date of Trip: 06/30/24 Time of Trip: 1730 Type of Service: BLS Non-emergency Is Patient Medicaid Pending?: No Was transportation financial coverage discussed with family?: Patient Legal File Clerk Location: [facility] Destination: [facility] Financial Care Management Responsibility: None Additional Information: Patient discharging to [facility] via [facility] today at 1730. No auth or 7000 needed. Transport packet next to chart and RN to call report. SIGNATURE: Shar Gonsalez RN PATIENT NAME: Joyce Solomon DATE: June 30, 2024 TIME: 1:01 [facility]02-19-2025 NoteHNO ID: [id number] Author: SHAR GONSALEZ RN Service: Care Management Author Type: Registered Nurse Type: Care Mgt Progress Note Filed: 06/30/2024 13:00 Note Text: CARE MANAGEMENT PROGRESS NOTE SERVICE DATE: 06/30/2024 SERVICE TIME: 1:00 PM LOS: 3 days IMM Follow Up Copy Given: Yes Copy given to:: Patient Method: In Person SIGNATURE: Shar Gonsalez RN PATIENT NAME: Joyce Soolmon DATE: June 30, 2024 TIME: 1:00 [facility]02-19-2025 NoteHNO ID: [id number] Author: SHAR GONSALEZ RN Service: Care Management Author Type: Registered Nurse Type: Care Mgt Progress Note Filed: 06/30/2024 11:11 Note Text: CARE MANAGEMENT PROGRESS NOTE SERVICE DATE: 06/30/2024 SERVICE TIME: 11:10 AM LOS: 3 days Needs Prior to Discharge: To Be Determined, Accepting Facility, Bed Availability, Discharge Transportation Patient agreeable to [facility]. Per [facility] she was transitioned to them prior to dc last time and would prefer her to admit to TCU this time. Referral sent to [facility] via [facility] transition. Per team she is medically ready for dc and has met her 3 midnight requirement. CM will continue to follow and arrange transport at [place]. SIGNATURE: Shar Gonsalez RN PATIENT NAME: Joyce Solomon DATE: June 30, 2024 TIME: 11:10 [facility]02-18-2025 NoteHNO ID: [id number] Author: SHAR GONSALEZ RN Service: Care Management Author Type: Registered Nurse Type: Care Mgt Progress Note Filed: 06/29/2024 11:28 Note Text: CARE MANAGEMENT PROGRESS NOTE SERVICE DATE: 06/29/2024 SERVICE TIME: 11:27 AM LOS: 2 days Needs Prior to Discharge: To Be Determined, Accepting Facility, Bed Availability, Discharge Transportation Patient skilled for [facility]. Per previous conversation with patient, she would like to return to [facility]. [facility] tasked to build and send referral. She does not need auth or 7000 but will need transport. Cm will continue to follow. SIGNATURE: Shar Gonsalez RN PATIENT NAME: Joyce Solomon DATE: June 29, 2024 TIME: 11:27 [facility]02-18-2025 NoteHNO ID: [id number] Author: PEEWEE LATIF APRN.ADRIANA Service: General Surgery Author Type: Nurse Practitioner Type: Progress Notes Filed: 06/29/2024 08:12 Note Text: Trauma Surgery Progress Note SERVICE DATE: 06/29/2024 Trauma Service Pager: For questions or concerns Mon-Fri 6a-5p please page [phone]. After 5pm and on Weekends and Holidays, please page [phone] if in ICU or [phone] if on RNF. SUBJECTIVE: No acute overnight events. Patient is alert and oriented x 3, FC, RODRÍGUEZ. No new focal deficits. Patient reports that her pain is controlled with her current regimen. Respiratory status stable on 2L NC. She denies chest pain or shortness of breath. Awaiting PT/OT evaluations and recommendations. OBJECTIVE: Vitals: Temp (24hrs), Av.7 ?C (98 ?F), Min:36.4 ?C (97.5 ?F), Max:36.9 ?C (98.4 ?F) BP 87/59 Pulse 67 Temp 36.9 ?C (98.4 ?F) (Oral) Resp 19 Ht 152.4 cm (5') Wt 76.2 kg (168 lb) SpO2 95% BMI 32.81 kg/m? O2 Therapy: BiLevel Positive Airway Pressure IANDO: Date 06/28/24699 - 06/29/24 0659 06/29/24699 - 06/30/24 0659 Shift 4967-5029 8977-2380 5225-9220 24 Hour Total 7707-6299 0931-4878 2600-9589 24 Hour Total INTAKE PO 913 447 2554 PO 970 345 7359 Supplements (mL) 0 0 Shift Total 547 056 1774 OUTPUT Urine 316 422 8985 Urine Incontinence/Not Saved 1 x 1 x Output ( External Collection Device 06/26/24) 360 086 3167 Shift Total 304 629 5356 Weight (kg) 76.2 76.2 76.2 76.2 76.2 76.2 76.2 76.2 MEDICATIONS: Current Facility-Administered Medications Medication Dose Route Frequency lidocaine 4 % 1 Patch (SALONPAS) 1 Patch TRANSDERMAL DAILY And lidocaine patch - REMOVE OTHER AT BEDTIME And lidocaine - VERIFY PATCH OTHER q 8 H lidocaine 4 % 1 Patch (SALONPAS) 1 Patch TRANSDERMAL DAILY And lidocaine patch - REMOVE OTHER AT BEDTIME And lidocaine - VERIFY PATCH OTHER q 8 H methocarbamol 500 mg tab(s) (ROBAXIN) 500 mg ORAL TID acetaminophen 1,000 mg tab(s) (TYLENOL) 1,000 mg ORAL q 8 H polyethylene glycol 3350 17 g packet 17 g ORAL DAILY aspirin 81 mg chewable tab(s) 81 mg ORAL DAILY NaCl 0.9% iv flush bag 20 mL INTRAVENOUS PRN modafinil 100 mg tab(s) (PROVIGIL) 100 mg ORAL DAILY (6 AM) metoprolol tartrate (short acting) 50 mg tab(s) (LOPRESSOR) 50 mg ORAL BID tamsulosin 0.4 mg cap(s) (FLOMAX) 0.4 mg ORAL DAILY melatonin 3 mg tab(s) 3 mg ORAL AT BEDTIME PRN ondansetron 4 mg tab(s) (ZOFRAN) 4 mg ORAL q 6 H PRN Or ondansetron (PF) 4 mg injection (ZOFRAN) 4 mg INTRAVENOUS q 6 H PRN ipratropium-albuterol 3 mL nebulizer solution (DUONEB) 3 mL INHALATION q 6 H PRN senna-docusate 8.6-50 mg 1 tablet (SENNA-S) 1 tablet ORAL BID traMADol 50 mg tab(s) (ULTRAM) 50 mg ORAL q 6 H PRN pramipexole (MIRAPEX) tab(s) 0.75 mg 0.75 mg ORAL TID Labs: Recent Labs 06/29/24 0232 06/28/24 0249 06/27/24 0218 NA 135* 137 138 K 4.0 3.7 3.3* CHLOR 97* 96* 98 CO2 28 31* 31* BUN 17 15 16 CREAT 0.78 0.75 0.86 GLUC 99 88 88 ANION 10 10 9 CA 8.7 8.6 8.5 MG 2.2 1.7 1.7 P -- 3.7 3.5 ALB -- -- 3.1* AST -- -- 22 ALT -- -- 10 ALKPHOS -- -- 56 TBILI -- -- 0.4 WBC 7.38 6.94 6.47 HB 9.5* 9.3* 9.5* HCT 29.4* 28.8* 29.9* PLT 262 262 264 INR -- -- 1.0 PHYSICAL EXAM: Genl: Appears age appropriate. No acute distress. Resting comfortably. Head/Face: Normocephalic. Atraumatic Eyes: EOMI. PERRLA. Sclera not icteric, not injected Neck: No mid-line masses. C-spine non-tender. Back: No midline tenderness, step-offs or deformities. Resp: Lungs CTAB. No wheezes, rales or rhonchi. Respiratory status stable on 2L NC @ 95%. CVS: RRR as above. 2+ RA, DP, PT pulses bilaterally. GI: Abdomen is soft, non-tender, non-distended. No guarding or peritoneal signs. MSK: No gross deformities. No clubbing, cyanosis or edema. Normal AROM x 4. Scattered ecchymosis to bilateral upper and lower extremities. +Superficial abrasion to left anterior thigh. Vikash-wrap to right ankle/foot. Skin: Warm and dry. Not jaundiced. Neuro: AANDOx3. Strength and sensation grossly intact in all extremities. RODRÍGUEZ. GCS15. Psych: Normal mood. Normal affect. Appropriate insight into current situation. ASSESSMENT AND PLAN: Assessment Active Hospital Problems Diagnosis Date Noted Closed fracture of multiple ribs of left side 06/27/2024 Closed compression fracture of second lumbar vertebra (HCC) 06/28/2024 Acute pain due to trauma 06/28/2024 Acute respiratory insufficiency 06/28/2024 At risk for delirium 06/28/2024 Frailty syndrome in geriatric patient 06/28/2024 Displaced fracture of fifth metatarsal bone, right foot, initial encounter for closed fracture 06/27/2024 Closed fracture of transverse process of lumbar vertebra (HCC) 06/27/2024 Ground-level fall 06/27/2024 Status post kyphoplasty 06/27/2024 89-year old female s/p ground level fall on 06/26/24 (Trauma consult) Imaging performed: CT HNC, PXR, XR right foot, XR left shoulder (06/26) CTA HN, CT A (more content not included)...[facility] 06-28-2024 NoteHNO ID: [id number] Author: SHAR GONSALEZ RN Service: Care Management Author Type: Registered Nurse Type: Care Mgt Initial Assessment Filed: 06/28/2024 12:32 Note Text: CARE MANAGEMENT: ASSESSMENT AND DISCHARGE PLAN SERVICE DATE: June 28, 2024 SERVICE TIME: 12:27 PM PCP: Bridget Swenson MD Primary Contact: Extended Emergency Contact Information Primary Emergency Contact: Martha Hdz Mobile Relation: Daughter Secondary Emergency Contact: Rogelio Gotti Mobile Relation: Grandchild Admission Status: Inpatient Insurance Provider: MEDICARE A AND B Discharge Planning requested by: Per Department Practice Potential Transition Plans Home OT/PT, Rehab Facility, To Be Determined Advance Directives Current Advance Directive: None Materials Planning Analyst Attempted to Assist with AD Completion: Yes Action: Education Provided Current Living Arrangements and Support Lives with: Alone Type of Residence: Private Residence (Apartment or Condo) Support: Family members How do you manage to accomplish the following: Independent: Ambulation, Bathe/Shower, Dress, Meals/Meal Prep, Going to the bathroom Needs Assistance: Transportation to appointments/community, Medication Management Current Services/Equipment Current Post-Acute Service(s): DME Current DME Type: Cane, Walker, Bi-level Positive Airway Pressure Discharge Planning Patient Goal(s): Less pain, General wellness, Be able to go home [place] Explained: [place] Given: Yes Level of Care Discussed: Home Care, Inpatient Rehab Facility Are you interested in bedside delivery of your medications? No Discharge Planning Participant(s): Patient Patient/Family Comments: Caregiver Assessment: Caregiver is ready, willing and able to meet the patient's needs as recommended by the inter-professional team: Yes Name of Caregiver: TBD Transport at Discharge: Transportation Arrangements: To Be Determined Needs Prior to Discharge: Needs Prior to Discharge: To Be Determined, OT/PT Evaluation Post-Acute Discharge Plan: Patient is a 89 year old female prior lumbar compression fractures s/p vertebroplasty who presented following fall. Patient lives alone and is mostly independent with ADLs. She has a walker, cane and bipap. Her PCP is up to date in chart. Patient recently admitted to [facility] and then was [facility] for SN/PT/Ot/ST. If patient skilled for home care shed like to resume with [facility] and if she needs placement shed like to return to [facility]. Pt/OT has been ordered and CM will send referrals as needed. Alex has good support at home and no longer drives. Her family assists with meds or she will pay someone to pick them up. She did say that some of her medications are getting expensive but she has been using good RX. CM will continue to follow. SIGNATURE: Shar Gonsalez RN PATIENT NAME: Joyce Solomon DATE: June 28, 2024 TIME: 12:27 [facility]02-17-2025 NoteHNO ID: [id number] Author: PEEWEE LATIF APRN.CNP Service: General Surgery Author Type: Nurse Practitioner Type: Progress Notes Filed: 06/28/2024 09:18 Note Text: Trauma Surgery Progress Note SERVICE DATE: 06/28/2024 Trauma Service Pager: For questions or concerns Mon-Fri 6a-5p please page [phone]. After 5pm and on Weekends and Holidays, please page [phone] if in ICU or [phone] if on RNF. SUBJECTIVE: No acute overnight events. Patient is alert and oriented x 3, FC, RODRÍGUEZ. No new focal deficits. Patient reports that her pain is controlled with her current regimen. Respiratory status stable on 2L NC. She denies chest pain or shortness of breath. Awaiting MRI of her lumbar spine. OBJECTIVE: Vitals: Temp (24hrs), Av.8 ?C (98.2 ?F), Min:36.4 ?C (97.5 ?F), Max:37.2 ?C (99 ?F) BP 165/57 Pulse 65 Temp 36.8 ?C (98.3 ?F) (Oral) Resp 18 Ht 152.4 cm (5') Wt 76.2 kg (168 lb) SpO2 95% BMI 32.81 kg/m? O2 Therapy: Room Air IANDO: Date 06/27/24 0700 - 02/17/25 0659 06/28/24 07 - 06/29/24 0659 Shift 0803-0210 4218-8195 6723-8228 24 Hour Total 9287-8269 4582-1037 5149-4848 24 Hour Total INTAKE Shift Total OUTPUT Urine 0 300 300 Output ( External Collection Device 06/26/24) 0 300 300 Shift Total 0 300 300 Weight (kg) 75.7 76.2 76.2 76.2 76.2 76.2 76.2 76.2 MEDICATIONS: Current Facility-Administered Medications Medication Dose Route Frequency magnesium sulfate iv piggyback in sterile water 2 g 50 mL 2 g INTRAVENOUS ONCE potassium chloride ER 20 mEq tab(s) (KLOR-CON) 20 mEq ORAL ONCE LORazepam 0.5 mg injection (ATIVAN) 0.5 mg INTRAVENOUS ONCE NaCl 0.9% iv flush bag 20 mL INTRAVENOUS PRN modafinil 100 mg tab(s) (PROVIGIL) 100 mg ORAL DAILY (6 AM) metoprolol tartrate (short acting) 50 mg tab(s) (LOPRESSOR) 50 mg ORAL BID tamsulosin 0.4 mg cap(s) (FLOMAX) 0.4 mg ORAL DAILY melatonin 3 mg tab(s) 3 mg ORAL AT BEDTIME PRN ondansetron 4 mg tab(s) (ZOFRAN) 4 mg ORAL q 6 H PRN Or ondansetron (PF) 4 mg injection (ZOFRAN) 4 mg INTRAVENOUS q 6 H PRN acetaminophen 975 mg tab(s) (TYLENOL) 975 mg ORAL q 6 H fentaNYL 50 mcg/mL 50 mcg injection (SUBLIMAZE) 50 mcg INTRAVENOUS q 2 H PRN ipratropium-albuterol 3 mL nebulizer solution (DUONEB) 3 mL INHALATION q 6 H PRN senna-docusate 8.6-50 mg 1 tablet (SENNA-S) 1 tablet ORAL BID traMADol 50 mg tab(s) (ULTRAM) 50 mg ORAL q 6 H PRN pramipexole (MIRAPEX) tab(s) 0.75 mg 0.75 mg ORAL TID cyclobenzaprine 5 mg tab(s) (FLEXERIL) 5 mg ORAL TID PRN Labs: Recent Labs 06/28/24 0249 06/27/24 0218 NA 137 138 K 3.7 3.3* CHLOR 96* 98 CO2 31* 31* BUN 15 16 CREAT 0.75 0.86 GLUC 88 88 ANION 10 9 CA 8.6 8.5 MG 1.7 1.7 P 3.7 3.5 ALB -- 3.1* AST -- 22 ALT -- 10 ALKPHOS -- 56 TBILI -- 0.4 WBC 6.94 6.47 HB 9.3* 9.5* HCT 28.8* 29.9* PLT 262 264 INR -- 1.0 PHYSICAL EXAM: Genl: Appears age appropriate. No acute distress. Resting comfortably. Head/Face: Normocephalic. Atraumatic Eyes: EOMI. PERRLA. Sclera not icteric, not injected Neck: No mid-line masses. C-spine non-tender. Back: No midline tenderness, step-offs or deformities. Resp: Lungs CTAB. No wheezes, rales or rhonchi. Respiratory status stable on 2L NC @ 95%. CVS: RRR as above. 2+ RA, DP, PT pulses bilaterally. GI: Abdomen is soft, non-tender, non-distended. No guarding or peritoneal signs. MSK: No gross deformities. No clubbing, cyanosis or edema. Normal AROM x 4. Scattered ecchymosis to bilateral upper and lower extremities. +Superficial abrasion to left anterior thigh. Vikash-wrap to right ankle/foot. Skin: Warm and dry. Not jaundiced. Neuro: AANDOx3. Strength and sensation grossly intact in all extremities. RODRÍGUEZ. GCS15. Psych: Normal mood. Normal affect. Appropriate insight into current situation. ASSESSMENT AND PLAN: Assessment Active Hospital Problems Diagnosis Date Noted Closed fracture of multiple ribs of left side 06/27/2024 Closed nondisplaced fracture of fifth metatarsal bone of right foot 06/27/2024 Closed fracture of transverse process of lumbar vertebra (HCC) 06/27/2024 Ground-level fall 06/27/2024 Status post kyphoplasty 06/27/2024 89-year old female s/p ground level fall on 06/26/24 (Trauma consult) Imaging performed: CT HNC, PXR, XR right foot, XR left shoulder (06/26) CTA HN, CT APTL-spine, CXR, XR left foot (06/27) MRI L-spine (06/28) Traumatic Injuries: Acute fracture deformities of the right L1, L2 transverse processes. Acute nondisplaced left 1st rib fracture. Acute nondisplaced left anterior 3rd-8th rib fractures. Acute, mildly comminuted and angulated fracture of the right mid 5th metatarsal. Operations/Procedures: None Care Plan: Left rib fractures CXR (06/27): Right lower lobe atelectasis CTA HN (06/27): No acute vascular injury Respiratory status stable on 2L NC Wean supplemental oxygen as tolerated Aggressive pulmonary hygiene Multimodal pain control Right 5th metatarsal fracture (more content not included)...[facility]02-17-2025 NoteHNO ID: [id number] Author: TARIK LOPEZ APRN.CNP Service: Neurosurgery Author Type: Nurse Practitioner Type: Progress Notes Filed: 06/28/2024 09:08 Note Text: Neurosurgery Progress Note SERVICE DATE: 06/28/2024 SUBJECTIVE: Seen in MRI holding. Anxious. Denies new numbness/tingling/weakness OBJECTIVE: Vitals: Temp (24hrs), Av.8 ?C (98.2 ?F), Min:36.4 ?C (97.5 ?F), Max:37.2 ?C (99 ?F) BP 165/57 Pulse 65 Temp 36.8 ?C (98.3 ?F) (Oral) Resp 18 Ht 152.4 cm (5') Wt 76.2 kg (168 lb) SpO2 95% BMI 32.81 kg/m? O2 Therapy: Room Air IANDO: Date 06/27/24699 - 06/28/2465806/28/24699 - 06/29/24 0659 Shift 7714-7977 1010-5016 5150-7264 24 Hour Total 1955-2704 3340-4601 0159-5028 24 Hour Total INTAKE Shift Total OUTPUT Urine 0 300 300 Output ( External Collection Device 06/26/24) 0 300 300 Shift Total 0 300 300 Weight (kg) 75.7 76.2 76.2 76.2 76.2 76.2 76.2 76.2 Medications: Current Facility-Administered Medications Medication Dose Route Frequency magnesium sulfate iv piggyback in sterile water 2 g 50 mL 2 g INTRAVENOUS ONCE LORazepam 0.5 mg injection (ATIVAN) 0.5 mg INTRAVENOUS ONCE fentaNYL 50 mcg/mL 25 mcg injection (SUBLIMAZE) 25 mcg INTRAVENOUS q 2 H PRN NaCl 0.9% iv flush bag 20 mL INTRAVENOUS PRN modafinil 100 mg tab(s) (PROVIGIL) 100 mg ORAL DAILY (6 AM) metoprolol tartrate (short acting) 50 mg tab(s) (LOPRESSOR) 50 mg ORAL BID tamsulosin 0.4 mg cap(s) (FLOMAX) 0.4 mg ORAL DAILY melatonin 3 mg tab(s) 3 mg ORAL AT BEDTIME PRN ondansetron 4 mg tab(s) (ZOFRAN) 4 mg ORAL q 6 H PRN Or ondansetron (PF) 4 mg injection (ZOFRAN) 4 mg INTRAVENOUS q 6 H PRN acetaminophen 975 mg tab(s) (TYLENOL) 975 mg ORAL q 6 H ipratropium-albuterol 3 mL nebulizer solution (DUONEB) 3 mL INHALATION q 6 H PRN senna-docusate 8.6-50 mg 1 tablet (SENNA-S) 1 tablet ORAL BID traMADol 50 mg tab(s) (ULTRAM) 50 mg ORAL q 6 H PRN pramipexole (MIRAPEX) tab(s) 0.75 mg 0.75 mg ORAL TID cyclobenzaprine 5 mg tab(s) (FLEXERIL) 5 mg ORAL TID PRN Labs: Recent Labs 06/28/24 0249 06/27/24 0218 NA 137 138 K 3.7 3.3* CHLOR 96* 98 CO2 31* 31* BUN 15 16 CREAT 0.75 0.86 GLUC 88 88 ANION 10 9 CA 8.6 8.5 MG 1.7 1.7 P 3.7 3.5 ALB -- 3.1* AST -- 22 ALT -- 10 ALKPHOS -- 56 TBILI -- 0.4 WBC 6.94 6.47 HB 9.3* 9.5* HCT 28.8* 29.9* PLT 262 264 INR -- 1.0 Imaging: MRI reviewed Exam: GENERAL: No distress, Alert NEURO: GCS 15 speech clear, fluent. RLE 4/5 proximally s/t pain, distally VIKASH wrap d/t fx. LLE 4+/5 suspect deconditioning. Stable chronic decr sensation R toes. HEENT: normocephalic, atraumatic LUNGS: Unlabored breathing CARDIAC: Regular rate and rhythm as above ABDOMEN: Soft, non-tender, non-distended EXTREMITIES: RODRÍGUEZ, No deformities, No edema SKIN: Skin color, texture, turgor normal, No rashes or lesions ASSESSMENT AND PLAN: Active Hospital Problems Diagnosis Date Noted Closed fracture of multiple ribs of left side 06/27/2024 Closed nondisplaced fracture of fifth metatarsal bone of right foot 06/27/2024 Closed fracture of transverse process of lumbar vertebra (HCC) 06/27/2024 Ground-level fall 06/27/2024 Status post kyphoplasty 06/27/2024 Joyce Solomon is a 89 year old female prior lumbar compression fractures s/p vertebroplasty who presented following fall - Neuro as above - MRI reviewed. No compromising neural compression or stability concerns that would warrant surgery or brace. - Patient can follow up as needed with neurosurgery office - DVT chemoppx and antiplatelets per primary - d/w Dr Gutierrez Neurosurgery will sign off at this time. Please call with questions or concerns. Portions of text from this note were copied. All relevant information was reviewed and updated accordingly on 06/28/2024 SIGNATURE: Tarik Lopez APRN.CNP PATIENT NAME: Joyce Solomon DATE: June 28, 2024 TIME: 9:05 AM Pager: [phone] [address]02-04-2025 NoteHNO ID: [id number] Author: JESSA RETANA APRN.ADRIANA Service: ? Author Type: Nurse Practitioner Type: Progress Notes Filed: 06/29/2024 02:01 Note Text: [facility] Established Visit PCP: Bridget Swenson (Susie) [address] [place] [id number] CEREBROVASCULAR HISTORY Joyce Solomon (Fran) is a 89 year old female who presents for neurologic evaluation following recent hospitalization for acute SAH (05/11/2024-05/16/2024). Stroke Event Information Harjit Solomon is a 89 yo F w/ PMH HTN, HLD, pAF on warfarin, NEL on CPAP, osteoporosis, secondary hypothyroidism transferred from [place] ED May 11, 2024 for ICH monitoring. LKW 05/11 in the morning with the patient developing transient weakness and numbness in the RUE for a few seconds CTH at OSH showed a R frontal ICH and cortical SAH appearing along R precentral gyrus. INR 2.0, reversed warfarin with Kcentra, transferred to [facility] for further evaluation. SBP >200 on arrival to ED, started on nicardipine and transferred to [facility] for continuation of care. iNIHSS 2 for bilateral mild drift in the legs (legs were swollen with chronic weakness in legs 2/2 L3-L4 spinal surgery). Repeat CT scan has increased volume in SAH but no clear ICH appreciated. 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 NSGY saw the patient, who felt no surgical intervention was needed. Bcx were negative, TTE with no vegetation, and MARIA ESTHER also unremarkable for signs of infective endocarditis. TCD ultrasound was negative for vasospasm.Patient reported fluctuating LUE weakness so EEG was obtained, which was negative for seizures. The patient's blood pressure was controlled with medication changes, although her diastolic blood pressure would occasionally become slightly lowered. 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 The patient was discharged to a SNF in stable condition with instructions to follow up with stroke neurology, cardiology (for consideration of a Watchman device and BP management), and to obtain a repeat CT head in 4 weeks. 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 Notes residual slurred speech, left side weakness, and mild left hand numbness. Discharging to home with daughter today with home health care, home PT/OT Scheduled to see cardiology in 07/2024 for WATCHMAN evaluation Restless leg syndrome, previously controlled History of atrial fibrillation, previously on Coumadin for 10 years. Intermittently symptomatic. Bilateral lower extremity edema Wheeled walker, was using assistive device prior for chronic lumbar pain + nausea and vomiting following her medication administration at her facility CTH completed at [facility] 06/14/24 PAST MEDICAL HISTORY Diagnosis Date Abdominal pain, unspecified site Abdominal pain, unspecified site Depression Dyslipidemia Flatulence, eructation, and gas pain Fracture L shoulder (2008), Sacral stress fracture; R wrist Hypertension Mitral valve prolapse Obstructive sleep apnea Osteoporosis, unspecified 01/30/2005 Other symptoms involving digestive system(787.99) PAF (paroxysmal atrial fibrillation) (HCC) 10/20/2013 Thyroid disorder PAST SURGICAL HISTORY Procedure Laterality Date APPENDECTOMY CHOLECYSTECTOMY COLONOSCOPY FLX DX W/COLLJ SPEC WHEN PFRMD 06-12-06 Repeat in COLONOSCOPY FLX DX W/COLLJ SPEC WHEN PFRMD 12/31/2011 Colonoscopy ESOPHAGOGASTRODUODENOSCOPY TRANSORAL DIAGNOSTIC 12/31/2011 EGD PAST SURGICAL HISTORY OF age 20 gland removed from under chin THYROID LEFT FINE NEEDLE ASPIRATION 12/30/07 U/S FNA Bilateral thyroid nodules THYROIDECTOMY SUBTOTAL/PARTIAL 05/2012 partial TONSILLECTOMY PRIMARY/SECONDARY Tonsillectomy FAMILY HISTORY Problem Relation Age of Onset Heart Mother cerebral anureysm Osteoporosis Mother Diabetes Brother diabetes also in mother's side Social History Tobacco Use Smoking status: Never Smokeless tobacco: Never Substance Use Topics Alcohol use: No Drug use: No MEDICATIONS Current Outpatient Medications Medication Sig furosemide (LASIX) 40 mg tablet Take 40 mg by mouth two times a day. metoprolol tartrate, short acting, (LOPRESSOR) 50 mg tablet Take 50 mg by mouth two times a day. modafinil (PROVIGIL) 100 mg tablet Take by mouth once daily. Pramipexole 3 mg Tb24 Take by mouth. tamsulosin (FLOMAX) 0.4 mg Take 0.4 mg by mouth once daily. traMADol (ULTRAM) 50 mg tablet Take 50 mg by mouth every 6 hours as needed for pain. lidocaine (SALONPAS) 4 % patch Apply 1 Patch as directed once daily. acetaminophen (TYLENOL) 325 mg tablet 2 tablets (more content not included)... [facility]02-04-2025 History of Present illness Narrative* Jessa Retana APRN.PERSONAL INJURY SPECIALIST - 06/15/2024 11:01 AM EST [facility] Established Visit PCP: Bridget Swenson ([facility]) [address] [place] [id number] CEREBROVASCULAR HISTORY Joyce Solomon (Fran) is a 89 year old female who presents for neurologic evaluation following recent hospitalization for acute SAH (05/11/2024-05/16/2024). Stroke Event Information Harjit Solomon is a 89 yo F w/ PMH HTN, HLD, pAF on warfarin, NEL on CPAP, osteoporosis, secondaryhypothyroidism transferred from [place] ED May 11, 2024 for ICH monitoring. LKW 05/11 in the morning with the patient developing transient weakness and numbness in the RUE fora few seconds CTH at OSH showed a R frontal ICH and cortical SAH appearing along R precentral gyrus. INR 2.0, reversed warfarin with Kcentra, transferred to [facility] for further evaluation. SBP >200 on arrival to ED, started on nicardipine and transferred to [facility] for continuation ofcare. iNIHSS 2 for bilateral mild drift in the legs (legs were swollen with chronic weakness in legs 2/2 L3-L4 spinal surgery). Repeat CT scan has increased volume in SAH but no clear ICH appreciated. 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 NSGY saw the patient, who felt no surgical intervention was needed. Bcx were negative, TTEwith no vegetation, and MARIA ESTHER also unremarkable for signs of infective endocarditis. TCD ultrasound was negative for vasospasm.Patient reported fluctuating LUE weakness so EEG was obtained, which was negative for seizures. The patient's blood pressure was controlled with medication changes, although her diastolic blood pressure would occasionally become slightly lowered. Etiology for this bleed wasfelt to be due to CAA in the setting of anticoagulation with warfarin. The patient was discharged to a SNF in stable condition with instructions to follow up with stroke neurology, cardiology (for consideration of a Watchman device and BP management), and to obtain a repeat CT head in 4 weeks. 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 Notes residual slurred speech, left side weakness, and mild left hand numbness. Discharging to home with daughter today with home health care, home PT/OT Scheduled to see cardiology in 07/2024 for WATCHMAN evaluation Restless leg syndrome, previously controlled History of atrial fibrillation, previously on Coumadin for 10 years. Intermittently symptomatic. Bilateral lower extremity edema Wheeled walker, was using assistive device prior for chronic lumbar pain + nausea and vomiting following her medication administration at her facility CTH completed at [facility] 06/14/24 PAST MEDICAL HISTORY Diagnosis Date Abdominal pain, unspecified site Abdominal pain, unspecified site Depression Dyslipidemia Flatulence, eructation, and gas pain Fracture L shoulder (2007), Sacral stress fracture; R wrist Hypertension Mitral valve prolapse Obstructive sleep apnea Osteoporosis, unspecified 01/30/2005 Other symptoms involving digestive system(787.99) PAF (paroxysmal atrial fibrillation) ([facility]) 10/20/2013 Thyroid disorder PAST SURGICAL HISTORY Procedure Laterality Date APPENDECTOMY CHOLECYSTECTOMY COLONOSCOPY FLX DX W/COLLJ SPEC WHEN PFRMD 06-12-06 Repeat in COLONOSCOPY FLX DX W/COLLJ SPEC WHEN PFRMD 12/31/2011 Colonoscopy ESOPHAGOGASTRODUODENOSCOPY TRANSORAL DIAGNOSTIC 12/31/2011 EGD PAST SURGICAL HISTORY OF age 20 gland removed from under chin THYROID LEFT FINE NEEDLE ASPIRATION 12/30/07 U/S FNA Bilateral thyroid nodules THYROIDECTOMY SUBTOTAL/PARTIAL 05/2012 partial TONSILLECTOMY PRIMARY/SECONDARY <AGE 13 Tonsillectomy FAMILY HISTORY Problem Relation Age of Onset Heart Mother cerebral anureysm Osteoporosis Mother Diabetes Brother diabetes also in mother's side Social History Tobacco Use Smoking status: Never Smokeless tobacco: Never Substance Use Topics Alcohol use: No Drug use: No MEDICATIONS Current Outpatient Medications Medication Sig furosemide (LASIX) 40 mg tablet Take 40 mg by mouth two times a day. metoprolol tartrate, short acting, (LOPRESSOR) 50 mg tablet Take 50 mg by mouth two times a day. modafinil (PROVIGIL) 100 mg tablet Take by mouth once daily. Pramipexole 3 mg Tb24 Take by mouth. tamsulosin (FLOMAX) 0.4 mg Take 0.4 mg by mouth once daily. traMADol (ULTRAM) 50 mg tablet Take 50 mg by mouth every 6 hours as needed for pain. lidocaine (SALONPAS) 4 % patch Apply 1 Patch as directed once daily. acetaminophen (TYLENOL) 325 mg tablet 2 tablets by ORAL/FEEDING TUBE route every 4 hours as needed for pain. aspirin 81 mg chewable tablet Take 1 tablet by mouth once daily. losartan (COZAAR) 50 mg tablet 1 tablet by ORAL/FEEDING TUBE route once daily. Patient should starton May 17, 2024. atenolol (TENORMIN) 25 mg tablet Take 1 tablet by mouth once daily. magnesium oxide (MAG-OX) 400 mg (241.3 mg magnesium) tablet Take 1 tablet by mouth once daily. rOPINIRole (REQUIP) 0.5 mg tablet Take 1 tablet by mouth every 4 hours. melatonin 3 mg tablet Take 1 tablet by mouth at bedtime as needed for insomnia. No current facility-administered medications for this visit. ALLERGIES ALLERGIES Allergen Reactions Sutures Itching Actonel [Risedronat* GI Upset States had GI bleed Adhes. Fqzu-Hxok-Bj* Beets Rash raised injection site when allergy tested Cantaloupe Hives Eggplant Hives Fosamax [Alendronat* GI Upset States had GI bleed Mobic [Meloxicam] Other: See Comments Edema, HTN Mold Hives Neurontin [Gabapent* Other: See Comments muscle spasms Penicillins Pork Intolerance Wheat Gluten Hives Yeast, Dried Hives PHYSICAL EXAMINATION BP (!) 171/44 Pulse 84 Ht 152.4 cm (5') Wt 73.5 kg (162 lb) BMI 31.64 kg/m General: Well-developed, well-nourished, in no acute distress. HEENT: Normocephalic, atraumatic. Sclerae anicteric. Lungs: Respirations even and unlabored, on room air. Extremities: No edema, cyanosis, or clubbing. Skin: No rash or ecchymoses. Neurological: Awake, alert, oriented to person, place, and time. Speech fluent, no dysarthria. Goodattention and insight into illness. Cranial Nerves: Pupils equal. Extraocular movements intact without nystagmus. Facial sensation and movements normal and symmetric. Tongue midline. Shoulder shrug symmetric. Motor: Normal bulk and tone. R 5/5, L 4+/5. No pronator drift or tremor. Sensation: Grossly intact light touch. Coordination: [id number] without dysmetria bilaterally. Gait: Ambulates easily into the office without assistance. LABS Cholesterol: Cholesterol, Total (mg/dL) Date Value 04/09/2014 281 LDL Cholesterol (mg/dL) Date Value 04/09/2014 169 HDL Cholesterol (mg/dL) Date Value 04/09/2014 102 Triglyceride (mg/dL) Date Value 04/09/2014 51 Diabetes: No results found for: "HBA1C" IMAGING Reviewed Patient Entered Questionnaires PROMIS/NeuroQoL Score Percentiles Percentiles provide an indication of how a patient's score ranks in relation to the [place] general population. > 31st percentile is within normal limits or better * < 31st percentile is at least SD worse than population, which may be clinically relevant < 16th percentile is at least 1 SD worse than population and warrants attention Depression Screenin02/19/2012 12/18/2011 PHQ-9 Score 1 1 Self-Harm Response Not at all Not at all PHQ-9 Scores: PHQ-9 Self-Harm (Item 9) Response: 0 - 9 No to Mild depression 0 - Not at all 10 - 14 Moderate depression 1 - Several Days > 15 Severe depression 2 - More than half the days 3 - Nearly every day Stroke Mechanism and Scales Intracranial Hemorrhage: Intraparenchymal Intraparenchymal Hemorrhage: Amyloid Angiopathy IMPRESSION 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 Hypertension Obstructive sleep apnea Atrial fibrillation previously on warfarin, anticoagulation held in light of recent ICH/SAH and concern for underlying CAA Retinal hemorrhage Hypothyroidism Restless leg syndrome PLAN Continue aspirin 81 mg daily. Anticoagulation on hold. Follow-up with cardiology as planned for WATCHMAN consideration Continue home PT/OT as planned Optimization of risk factors Blood pressure management: goal BP less than 130/80, continue antihypertensives as prescribed. Recommend home blood pressure monitoring twice daily. Notify primary care provider of elevated readings. Reviewed signs and symptoms warranting emergent neurologic evaluation. Return to clinic in 3 months or sooner if concerns arise I spent a total of 28 minutes on the date of service which included preparing to see the patient, [id number] patient care, completing clinical documentation, obtaining and/or reviewing separately obtained history, performing a medically appropriate examination, counseling and educating the patient/family/caregiver, independently interpreting results (not separately reported), and communicating results to the patient/family/caregiver SIGNATURE Jessa Retana APRN.CNP 06/15/2024 [facility]01-19-2025 Evaluation note* Diagnosis Onset Date Resolution Status Admit Date Debility acute May 30, 2024 2:19pm Essential (primary) hypertension acute May 30 2:19pm Hemorrhagic stroke acute Januar y 2024 2:19pm Insomnia acute May 30, 2024 2:19pm Obstructive sleep apnea acute J anuary 2024 2:19pm Subarachnoid hemorrhage acute J anuary 2024 2:19pm Restless leg syndrome chronic Robert uary 2024 2:19pm Hypomagnesemia resolved May 302024 2:19pm Neuropathic pain resolved May 30, 2024 2:19pm Urinary tract infection resolved J anuary 2024 2:19pm Urine retention resolved May 122024 2:19pm Afib inactive May 30, 2024 2:19pm Cerebral amyloid angiopathy acute June 30, 2024 6:43pm Debility acute June 30, 2024 6:43pm Essential (primary) hypertension acute June 30, 2 025 6:43pm Insomnia acute June 30, 2024 6:43pm Obstructive sleep apnea acute F ebruary 2024 6:43pm Osteoporosis acute June 6:43pm Subarachnoid hemorrhage acute F ebruary 2024 6:43pm Restless leg syndrome chronic Feb ruary 2024 6:43pm Compression fracture of L2 resolved June 30, 2024 6:43pm Compression fracture of L3 vertebra resolved June 30, 2 025 6:43pm Hypomagnesemia resolved June 122024 6:43pm Multiple falls resolved June 122024 6:43pm Multiple rib fractures resolved Fe bruary 2024 6:43pm Multiple transverse process fractures resolved June 30, 2 025 6:43pm Urine retention resolved June 30, 2024 6:43pm Afib inactive June 30, 2024 6:43pm Fracture of fifth metatarsal bone of right foot inactive June 6:43pm Dyspnea on exertion chronic July 26, 2024 11:15am Essential (primary) hypertension chronic July 26, 2024 11:15am Paroxysmal atrial fibrillation chron ic July 26, 2024 11:15am Aphasia inactive August 30 2:01pm Altered level of consciousness acute September 01, 2024 2:05am Cerebral amyloid angiopathy acute September 01, 2024 2:05am History of hemorrhagic cerebrovascular accident (CVA) with residual deficit acute August 2:05am Hypertensive urgency acute Apri l 2024 2:05am Obesity (BMI 30.0-34.9) acute A pril 2024 2:05am NEL on CPAP acute September 01, 2 025 2:05am Acute UTI acute October 04, 2024 12:39am Adverse drug reaction acute October 04, 2024 12:39am Fall acute October 04, 2024 12:39am History of hemorrhagic cerebrovascular accident (CVA) with residual deficit acute October 04, 2024 12:39am Noncompliance acute October 04, 025 12:39am Toxic encephalopathy acute October 04, 2024 12:39am Chronic back pain chronic September 12:39am [facility] Work Phone: 1(530) 709-968901-19-2025 Evaluation note* Diagnosis Onset Date Resolution Status Admit Date Debility acute May 30, 2024 2:19pm Essential (primary) hypertension acute May 30 2:19pm Hemorrhagic stroke acute Mayuar 2024 2:19pm Insomnia acute May 30, 2024 2:19pm Obstructive sleep apnea acute J anuary 2024 2:19pm Subarachnoid hemorrhage acute J anuary 2024 2:19pm Restless leg syndrome chronic Robert uary 2024 2:19pm Hypomagnesemia resolved May 302024 2:19pm Neuropathic pain resolved May 30, 2024 2:19pm Urinary tract infection resolved J anuary 2024 2:19pm Urine retention resolved May 122024 2:19pm Afib inactive May 30, 2024 2:19pm Cerebral amyloid angiopathy acute June 30, 2024 6:43pm Debility acute June 30, 2024 6:43pm Essential (primary) hypertension acute June 30, 2 025 6:43pm Insomnia acute June 30, 2024 6:43pm Obstructive sleep apnea acute F ebruary 2024 6:43pm Osteoporosis acute June 6:43pm Subarachnoid hemorrhage acute F ebruary 2024 6:43pm Restless leg syndrome chronic Feb ruary 2024 6:43pm Compression fracture of L2 resolved June 30, 2024 6:43pm Compression fracture of L3 vertebra resolved June 30, 2 025 6:43pm Hypomagnesemia resolved June 122024 6:43pm Multiple falls resolved June 122024 6:43pm Multiple rib fractures resolved Fe bruary 2024 6:43pm Multiple transverse process fractures resolved June 30, 2 025 6:43pm Urine retention resolved June 30, 2024 6:43pm Afib inactive June 30, 2024 6:43pm Fracture of fifth metatarsal bone of right foot inactive June 6:43pm Dyspnea on exertion chronic July 26, 2024 11:15am Essential (primary) hypertension chronic July 26, 2024 11:15am Paroxysmal atrial fibrillation chron ic July 26, 2024 11:15am Aphasia inactive August 30 2:01pm Altered level of consciousness acute September 01, 2024 2:05am Cerebral amyloid angiopathy acute September 01, 2024 2:05am History of hemorrhagic cerebrovascular accident (CVA) with residual deficit acute August 2:05am Hypertensive urgency acute Apri l 2024 2:05am Obesity (BMI 30.0-34.9) acute A pril 2024 2:05am NEL on CPAP acute September 01, 2 025 2:05am Adverse drug reaction acute October 06, 2024 2:26pm Fall acute October 06, 2024 2:26pm History of hemorrhagic cerebrovascular accident (CVA) with residual deficit acute October 06, 2024 2:26pm Noncompliance acute October 06, 2 025 2:26pm Toxic encephalopathy acute October 06, 2024 2:26pm Chronic back pain inactive September 2:26pm [facility] Work Phone: 1(564) 390-784901-19-2025 [facility]01-08-2025 NoteHNO ID: [id number] Author: TATIANA FRAIRE RN Service: ? Author Type: Registered Nurse Type: Progress Notes Filed: 05/19/2024 10:57 Note Text: Psychological Anthropologist Endovascular Transitional Care Management Phone Call to Family Member A transitional care management phone call was conducted today with daughter Martha after recent hospital discharge on 05/16. The goal of this visit is to review patient progress, confirm appointments, provide office phone number, and answer questions related to patient transition out of the hospital. How is patient feeling/progressing? Doing OK, she has meeting tomorrow with SNF Pending Tests and Appointments: Appointments for Next 60 Days Date Time Provider Location Dept Phone 06/14/2024 1:00 PM [facility] (I-[facility]) Mery Neff [phone] 06/15/2024 11:00 AM JESSA RETANA [facility] [phone] Verification of appointments/change appointment- verified these appts and that a cardiology appt was requested but is at in July. Read in DC summary that they would like sooner cardiology appt. She will call to try to reschedule and possibly get it closer to [place]. Point of Contact: Are you the best point of contact for patient? yes Verify PCP(add if not on chart)on chart Staff provided office number to contact for f/up questions or concerns.-provided Questions: Questions at the end of the call? none Tatiana Fraire RN Endovascular Psychological Anthropologist, [facility] May 19, 2024 10:57 [facility]01-08-2025 History of Present illness Narrative* Tatiana Fraire RN - 05/19/2024 10:54 AM EST Psychological Anthropologist Endovascular Transitional Care Management Phone Call to Family Member A transitional care management phone call was conducted today with daughter Martha after recent hospital discharge on 05/16. The goal of this visit is to review patient progress, confirm appointments, provide office phone number, and answer questions related to patient transition out of the hospital. How is patient feeling/progressing? Doing OK, she has meeting tomorrow with SNF Pending Tests and Appointments: Appointments for Next 60 Days Date Time Provider Location Dept Phone 06/14/2024 1:00 PM [facility] ([facility]) Mery Neff [phone] 06/15/2024 11:00 AM JESSA RETANA [facility] [phone] Verification of appointments/change appointment- verified these appts and that a cardiology appt was requested but is at in July. Read in DC summary that they would like sooner cardiology appt. She will call to try to reschedule and possibly get it closer to [place]. Point of Contact: Are you the best point of contact for patient? yes Verify PCP(add if not on chart)on chart Staff provided office number to contact for f/up questions or concerns.-provided Questions: Questions at the end of the call? none Tatiana Fraire RN Endovascular Psychological Anthropologist, [facility] May 19, 2024 10:57 AM * Elena Ruiz - 05/19/2024 10:40 AM EST Transferred daughter to speak to Tatiana. * Tatiana Fraire RN - 05/19/2024 10:20 AM EST Called daughter, no answer. Left detailed message with appt updates and office number for f/up questions for stroke and nsgy f/up-CTH and appt with Jessa Retana. Tatiana Fraire RN [facility] NoteHNO ID: [id number] Author: ?, ?, ? Service: ? Author Type: ? Type: Progress Notes Filed: 05/19/2024 10:41 Note Text: Transferred daughter to speak to Tatiana.[facility]01-08-2025 NoteHNO ID: [id number] Author: TATIANA FRAIRE RN Service: ? Author Type: Registered Nurse Type: Progress Notes Filed: 05/19/2024 10:21 Note Text: Called daughter, no answer. Left detailed message with appt updates and office number for f/up questions for stroke and nsgy f/up-CTH and appt with Jessa Retana. [facility]iana Fraire RN[facility]25 NoteHNO ID: [id number] Author: TATIANA FRAIRE RN Service: ? Author Type: Registered Nurse Type: Progress Notes Filed: 05/19/2024 09:56 Note Text: Called and spoke with Jaja in case management at [facility].[phone] . She is just assessing pt today to update DC date and disposition, not sure where pt will be going after dc. Tentative DC date 18 days from 05/16. Pt needs CTH and ISMA f/up 4-6 weeks post discharge per message from inpatient nurse practitioner Faby Orozco, around 2/2(as well as stroke f/up already scheduled for 06/14. They do CT's at [place], but pt will likely be d/c'd prior to date needed. Jaja will have nurse call to update us so we can schedule accordingly. Office number provided. Tatiana Fraire RN[facility] History of Present illness Narrative* Tatiana Fraire RN - 05/19/2024 9:50 AM EST Called and spoke with Jaja in case management at [facility].[phone] . She is just assessing pt today to update DC date and disposition, not sure where pt will be going after dc. Tentative DC date 18 days from 05/16. Pt needs CTH and ISMA f/up 4-6 weeks post discharge per message from inpatient nurse practitioner Faby Orozco, around 2/2(as well as stroke f/up already scheduled for 06/14. They do CT's at [place], but pt will likely be d/c'd prior to date needed. Jaja willhave nurse call to update us so we can schedule accordingly. Office number provided. Tatiana Fraire RN documented in [facility]01-[facility] NotePatient Outreach (NSEN) Harjit SOLOMON ([id number]) 1935 F CHT Date Time Provider Department 05/19/24 CARI WONGAbril During your visit today, we recorded the following information about you: Tatiana Fraire, ALBERT 05/19/2024 9:56 AM Signed Called and spoke with Jaja in case management at [facility].[phone] . She is just assessing pt today to update DC date and disposition, not sure where pt will be going after dc. Tentative DC date 18 days from 05/16. Pt needs CTH and ISMA f/up 4-6 weeks post discharge per message from inpatient nurse practitioner Faby Orozco, around 06/13(as well as stroke f/up already scheduled for 06/14. They do CT's at [place], but pt will likely be d/c'd prior to date needed. Jaja will have nurse call to update us so we can schedule accordingly. Office number provided. Tatiana Fraire RN Allergies As of Date: 05/19/2024 Noted Allergy Reaction SUTURES 11/26/2012 9 - Itching ACTONEL (RISEDRONATE SODIUM) 11/06/2007 8 - GI Upset Comments: States had GI bleed ADHES. [id number] 12/09/2007 BEETS 05/28/2011 2 - Rash Comments: raised injection site when allergy tested CANTALOUPE 12/08/2006 4 - Hives EGGPLANT 12/08/2006 4 - Hives FOSAMAX (ALENDRONATE SODIUM) 11/06/2007 8 - GI Upset Comments: States had GI bleed MOBIC (MELOXICAM) 04/16/2011 14 - Other: See Comments Comments: Edema, HTN MOLD 02/22/2004 4 - Hives NEURONTIN (GABAPENTIN) 03/29/2011 14 - Other: See Comments Comments: muscle spasms PENICILLINS 02/22/2004 PORK 03/26/2011 5 - Intolerance WHEAT GLUTEN 12/08/2006 4 - Hives YEAST, DRIED 03/24/2012 4 - Hives Date Reviewed: 05/14/2024 Reviewed by: Damari Wiggins, RN - Fully Assessed Reason for Visit: nsgy DIA [Other] Prescriptions as of 05/19/2024 - atenolol (TENORMIN) 25 mg tablet Take 1 tablet by mouth once daily. - magnesium oxide (MAG-OX) 400 mg (241.3 mg magnesium) tablet Take 1 tablet by mouth once daily. - rOPINIRole (REQUIP) 0.5 mg tablet Take 1 tablet by mouth every 4 hours. - lidocaine (SALONPAS) 4 % patch Apply 1 Patch as directed once daily. - acetaminophen (TYLENOL) 325 mg tablet 2 tablets by ORAL/FEEDING TUBE route every 4 hours as needed for pain. - aspirin 81 mg chewable tablet Take 1 tablet by mouth once daily. - losartan (COZAAR) 50 mg tablet 1 tablet by ORAL/FEEDING TUBE route once daily. Patient should start on May 17, 2024. - melatonin 3 mg tablet Take 1 tablet by mouth at bedtime as needed for insomnia. Problem List As Of Date 05/19/2024 Noted Resolved OSTEOPOROSIS NOS [M81.0] 01/30/2005 Essential (primary) hypertension [I10] 03/04/2005 HYPERLIPIDEMIA NEC/NOS [E78.5] 03/04/2005 MULTINODULAR GOITER (NONTOXIC) [E04.2] 03/04/2005 Adjustment disorder with depressed mood [F43.21]03/04/2005 02/19/2012 Insomnia, unspecified [G47.00] 02/11/2007 02/19/2012 NIGHTMARE [[id number]] 02/11/2007 04/12/2014 LUMBAR RADICULITIS [SPN8941] 02/11/2007 BACKACHE NOS [M54.9] 02/17/2007 MITRAL INSUFFICIENCY [I05.9] 12/09/2007 Incidental lung nodule, > 3mm and < 8mm [R91.1] 12/24/2010 Lumbago [M54.50] 12/27/2010 Sacral insufficiency fracture [M84.48XA] 03/29/2011 NEL (obstructive sleep apnea) [G47.33] 10/16/2011 Personal history of colonic polyps [Z86.0100] 12/31/2011 Other symptoms involving digestive system [R19.*12/31/2011 Abdominal pain, unspecified site [R10.9] 12/31/2011 Mitral valve prolapse [I34.1] Hypertension [I10] Depression [F32.A] 04/12/2014 Hyperparathyroidism [E21.3] 05/28/2012 Pain in joint, shoulder region [M25.519] 06/19/2012 PAF (paroxysmal atrial fibrillation) (HCC) [I48*10/20/2013 Adjustment disorder [F43.20] 04/12/2014 Atrial fibrillation (HCC) [I48.91] 04/22/2014 Intracranial hemorrhage (HCC) [I62.9] 05/11/2024 SAH (subarachnoid hemorrhage) (HCC) [I60.9] 05/11/2024 Hypertensive emergency [I16.1] 05/11/2024 05/12/2024 Current use of skilled nursing anticoagulation [Z79.0*05/11/2024 Restless leg syndrome [G25.81] 05/11/2024 Obesity, Class I, BMI 30-34.9 [E66.811] 05/12/2024 Malnutrition of mild degree (HCC) [E44.1] 05/13/2024 05/16/2024 Cerebral amyloid angiopathy (CODE) [I68.0] 05/17/2024 Encounter Status:Closed by TATIANA FRAIRE on 05/19/24[facility] NotePatient Outreach (NSEVMN) Harjit SOLOMON ([id number]) 1935 F CHT Date Time Provider Department 05/19/24 CARI WONG NSEVMN During your visit today, we recorded the following information about you: Tatiana Fraire, RN 05/19/2024 10:21 AM Signed Called daughter, no answer. Left detailed message with appt updates and office number for f/up questions for stroke and nsgy f/up-CTH and appt with Jessa Retana. Tatiana Fraire RN [facility] 05/19/2024 10:41 AM Signed Transferred daughter to speak to Tatiana. Tatiana Fraire RN 05/19/2024 10:57 AM Signed Psychological Anthropologist Endovascular Transitional Care Management Phone Call to Family Member A transitional care management phone call was conducted today with daughter Martha after recent hospital discharge on 05/16. The goal of this visit is to review patient progress, confirm appointments, provide office phone number, and answer questions related to patient transition out of the hospital. How is patient feeling/progressing? Doing OK, she has meeting tomorrow with SNF Pending Tests and Appointments: Appointments for Next 60 Days Date Time Provider Location Dept Phone 06/14/2024 1:00 PM [facility] (I-[facility]) Mery Neff [phone] 06/15/2024 11:00 AM JESSA RETANA Po [phone] Verification of appointments/change appointment- verified these appts and that a cardiology appt was requested but is at in July. Read in DC summary that they would like sooner cardiology appt. She will call to try to reschedule and possibly get it closer to [place]. Point of Contact: Are you the best point of contact for patient? yes Verify PCP(add if not on chart)on chart Staff provided office number to contact for f/up questions or concerns.-provided Questions: Questions at the end of the call? none Tatiana Fraire RN Endovascular Psychological Anthropologist, [facility] May 19, 2024 10:57 AM Allergies As of Date: 05/19/2024 Noted Allergy Reaction SUTURES 11/26/2012 9 - Itching ACTONEL (RISEDRONATE SODIUM) 11/06/2007 8 - GI Upset Comments: States had GI bleed ADHES. [id number] 12/09/2007 BEETS 05/28/2011 2 - Rash Comments: raised injection site when allergy tested CANTALOUPE 12/08/2006 4 - Hives EGGPLANT 12/08/2006 4 - Hives FOSAMAX (ALENDRONATE SODIUM) 11/06/2007 8 - GI Upset Comments: States had GI bleed MOBIC (MELOXICAM) 04/16/2011 14 - Other: See Comments Comments: Edema, HTN MOLD 02/22/2004 4 - Hives NEURONTIN (GABAPENTIN) 03/29/2011 14 - Other: See Comments Comments: muscle spasms PENICILLINS 02/22/2004 PORK 03/26/2011 5 - Intolerance WHEAT GLUTEN 12/08/2006 4 - Hives YEAST, DRIED 03/24/2012 4 - Hives Date Reviewed: 05/14/2024 Reviewed by: Damari Wiggins RN - Fully Assessed Reason for Visit: nsgy DIA-family [Other] Prescriptions as of 05/19/2024 - atenolol (TENORMIN) 25 mg tablet Take 1 tablet by mouth once daily. - magnesium oxide (MAG-OX) 400 mg (241.3 mg magnesium) tablet Take 1 tablet by mouth once daily. - rOPINIRole (REQUIP) 0.5 mg tablet Take 1 tablet by mouth every 4 hours. - lidocaine (SALONPAS) 4 % patch Apply 1 Patch as directed once daily. - acetaminophen (TYLENOL) 325 mg tablet 2 tablets by ORAL/FEEDING TUBE route every 4 hours as needed for pain. - aspirin 81 mg chewable tablet Take 1 tablet by mouth once daily. - losartan (COZAAR) 50 mg tablet 1 tablet by ORAL/FEEDING TUBE route once daily. Patient should start on May 17, 2024. - melatonin 3 mg tablet Take 1 tablet by mouth at bedtime as needed for insomnia. Problem List As Of Date 05/19/2024 Noted Resolved OSTEOPOROSIS NOS [M81.0] 01/30/2005 Essential (primary) hypertension [I10] 03/04/2005 HYPERLIPIDEMIA NEC/NOS [E78.5] 03/04/2005 MULTINODULAR GOITER (NONTOXIC) [E04.2] 03/04/2005 Adjustment disorder with depressed mood [F43.21]03/04/2005 02/19/2012 Insomnia, unspecified [G47.00] 02/11/2007 02/19/2012 NIGHTMARE [MVT6495] 02/11/2007 04/12/2014 LUMBAR RADICULITIS [HSE0687] 02/11/2007 BACKACHE NOS [M54.9] 02/17/2007 MITRAL INSUFFICIENCY [I05.9] 12/09/2007 Incidental lung nodule, > 3mm and < 8mm [R91.1] 12/24/2010 Lumbago [M54.50] 12/27/2010 Sacral insufficiency fracture [M84.48XA] 03/29/2011 NEL (obstructive sleep apnea) [G47.33] 10/16/2011 Personal history of colonic polyps [Z86.0100] 12/31/2011 Other symptoms involving digestive system [R19.*12/31/2011 Abdominal pain, unspecified site [R10.9] 12/31/2011 Mitral valve prolapse [I34.1] Hypertension [I10] Depression [F32.A] 04/12/2014 Hyperparathyroidism [E21.3] 05/28/2012 Pain in joint, shoulder region [M25.519] 06/19/2012 PAF (paroxysmal atrial fibrillation) (HCC) [I48*10/20/2013 Adjustment disorder [F43.20] 04/12/2014 Atrial fibrillation (HCC) [I48.91] 04/22/2014 Intracranial hemorrhage (HCC) [I62.9] 05/11/2024 SAH (subarachnoi (more content not included)...[facility] 05-16-2024 [facility]01-05-2025 Evaluation note* Diagnosis Onset Date Resolution Status Admit Date Cerebral amyloid angiopathy acute May 16, 2024 4:02pm Debility deleted May 16, 025 4:02pm Essential (primary) hypertension acute May 16 4:02pm Nightmares acute May 16 025 4:02pm Osteoporosis acute May 16, 2024 4:02pm Subarachnoid hemorrhage acute J anuary 2024 4:02pm 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, 2024 4:02pm Restless leg syndrome chronic May uary 2024 4:02pm Acute cystitis with positive culture resolved May 16 4:02pm Catheter-associated urinary tract infection resolved May 16 4:02pm Daytime somnolence resolved Rusty maldonado 2024 4:02pm Hypomagnesemia resolved May 4:02pm Urine retention resolved May 162024 4:02pm Elevated PTHrP level inactive Favian latham 2024 4:02pm Hyperlipidemia inactive May 4:02pm Hypothyroidism inactive May 4:02pm Iron deficiency anemia inactive Grant wang 2024 4:02pm residential (current) use of anticoagulants inactive May 16 4:02pm Paroxysmal atrial fibrillation inact hemant May 16, 2024 4:02pm Secondary pulmonary arterial hypertension inactive May 16 4:02pm Sleep apnea inactive May 16, 2024 4:02pm Venous insufficiency of both lower extremities inactive May 16, 2 025 4:02pm Vitamin D deficiency inactive Favian noa 2024 4:02pm Atrial fibrillation deleted Clarice ry 2024 4:02pm Debility acute May 30, 2024 2:19pm Essential (primary) hypertension acute May 30 2:19pm Hemorrhagic stroke acute Mayuar y 2024 2:19pm Insomnia acute May 30, 2024 2:19pm Obstructive sleep apnea acute J anuary 2024 2:19pm Subarachnoid hemorrhage acute J anuary 2024 2:19pm Restless leg syndrome chronic Robert uary 2024 2:19pm Hypomagnesemia resolved May 302024 2:19pm Neuropathic pain resolved May 30, 2024 2:19pm Urinary tract infection resolved J anuary 2024 2:19pm Urine retention resolved May 122024 2:19pm Afib inactive May 30, 2024 2:19pm Cerebral amyloid angiopathy acute June 30, 2024 6:43pm Compression fracture of L2 acute June 30, 2024 6:43pm Debility acute June 30, 2024 6:43pm Essential (primary) hypertension acute June 30, 2 025 6:43pm Insomnia acute June 30, 2024 6:43pm Multiple falls acute June 122024 6:43pm Multiple rib fractures acute Fe bruary 2024 6:43pm Multiple transverse process fractures acute June 30, 2 025 6:43pm Obstructive sleep apnea acute F ebruary 2024 6:43pm Osteoporosis acute June 6:43pm Subarachnoid hemorrhage acute F ebruary 2024 6:43pm Restless leg syndrome chronic Feb ruary 2024 6:43pm Compression fracture of L3 vertebra resolved June 30, 2 025 6:43pm Hypomagnesemia resolved June 122024 6:43pm Urine retention resolved June 30, 2024 6:43pm Afib inactive June 30, 2024 6:43pm Fracture of fifth metatarsal bone of right foot inactive June 6:43pm [facility] Work Phone: 1(879) 586-689701-05-2025 Evaluation note* Diagnosis Onset Date Resolution Status Admit Date Cerebral amyloid angiopathy acute May 16, 2024 4:02pm Debility deleted May 16, 025 4:02pm Essential (primary) hypertension acute May 16 4:02pm Nightmares acute May 16 025 4:02pm Osteoporosis acute May 16, 2024 4:02pm Subarachnoid hemorrhage acute J anuary 2024 4:02pm 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, 2024 4:02pm Paroxysmal atrial fibrillation chron ic May 16, 2024 4:02pm Restless leg syndrome chronic May 4:02pm Acute cystitis with positive culture resolved May 16 4:02pm Catheter-associated urinary tract infection resolved May 16 4:02pm Daytime somnolence resolved 2024 4:02pm Hypomagnesemia resolved May 4:02pm Urine retention resolved May 162024 4:02pm Elevated PTHrP level inactive 2024 4:02pm Hyperlipidemia inactive May 4:02pm Hypothyroidism inactive May 4:02pm Iron deficiency anemia inactive [facility] 2024 4:02pm residential (current) use of anticoagulants inactive May 16 4:02pm Secondary pulmonary arterial hypertension inactive May 16 4:02pm Sleep apnea inactive May 16, 2024 4:02pm Venous insufficiency of both lower extremities inactive May 16 025 4:02pm Vitamin D deficiency inactive 2024 4:02pm Atrial fibrillation deleted 2024 4:02pm Debility acute May 30, 2024 2:19pm Essential (primary) hypertension acute May 30 2:19pm Hemorrhagic stroke acute 2024 2:19pm Insomnia acute May 30, 2024 2:19pm Obstructive sleep apnea acute J anuary 2024 2:19pm Subarachnoid hemorrhage acute J anuary 2024 2:19pm Restless leg syndrome chronic Robert uary 2024 2:19pm Hypomagnesemia resolved May 302024 2:19pm Neuropathic pain resolved May 30, 2024 2:19pm Urinary tract infection resolved J anuary 2024 2:19pm Urine retention resolved May 122024 2:19pm Afib inactive May 30, 2024 2:19pm Cerebral amyloid angiopathy acute June 30, 2024 6:43pm Debility acute June 30, 2024 6:43pm Essential (primary) hypertension acute June 30, 2 025 6:43pm Insomnia acute June 30, 2024 6:43pm Obstructive sleep apnea acute F ebruary 2024 6:43pm Osteoporosis acute June 6:43pm Subarachnoid hemorrhage acute F ebruary 2024 6:43pm Restless leg syndrome chronic Feb ruary 2024 6:43pm Compression fracture of L2 resolved June 30, 2024 6:43pm Compression fracture of L3 vertebra resolved June 30, 2 025 6:43pm Hypomagnesemia resolved June 122024 6:43pm Multiple falls resolved June 122024 6:43pm Multiple rib fractures resolved Fe bruary 2024 6:43pm Multiple transverse process fractures resolved June 30, 2 025 6:43pm Urine retention resolved June 30, 2024 6:43pm Afib inactive June 30, 2024 6:43pm Fracture of fifth metatarsal bone of right foot inactive June 6:43pm Dyspnea on exertion chronic July 26, 2024 11:15am Essential (primary) hypertension chronic July 26, 2024 11:15am Paroxysmal atrial fibrillation chron ic July 26, 2024 11:15am [facility] Work Phone: 1(170) 191-459101-05-2025 NoteHNO ID: [id number] Author: DANUTA GALVAN RN Service: Care Management Author Type: Registered Nurse Type: Care Mgt Progress Note Filed: 05/16/2024 12:25 Note Text: CARE MANAGEMENT DISCHARGE NOTE SERVICE DATE: May 16, 2024 SERVICE TIME: 12:24 PM Admission Date: 05/11/2024 LOS: 5 days Discharge Information Row Name Admission (Current) from 05/11/2024 in HOSP [facility] Facility Agency [facility] Phone# Discharge today to [facility] for [place]. Will send discharge paperwork. Nurse has report number. SIGNATURE: Danuta Galvan RN PATIENT NAME: Harjit Solomon DATE: May 16, 2024 TIME: 12:24 [facility]01-05-2025 NoteHNO ID: [id number] Author: TRUDI BURGOS MD Service: Neurology Stroke Author Type: Resident Type: Progress Notes Filed: 05/16/2024 09:50 Note Text: Documentation Query Please clarify the diagnosis associated with the clinical indicators for this patient "Hypophosphatemia" not present on admission Plan: -Replenish as needed This document will become part of the patient's medical record. Trudi Burgos MD Neurology PGY-3 [id number] 05/16/2024 9:49 [facility]01-04-2025 NoteHNO ID: [id number] Author: CARI WONG MD, PhD Service: Neurology Stroke Author Type: Physician Type: Progress Notes Filed: 05/15/2024 14:34 Note Text: NEURO STROKE PROGRESS NOTE SERVICE DATE: 05/15/2024 SERVICE TIME: 9:00am Subjective INTERVAL HISTORY: - Requested Benadryl x1 overnight for itchiness (resolved); received Ropinarole x2 overnight d/t c/o restless legs - BEM check negative overnight - MARIA ESTHER completed yesterday, not suggestive of IE MEDICATIONS: Current medications and allergies reviewed. Recommended/planned medication changes discussed in detail in the A/P section below. Objective PHYSICAL EXAM Vital Signs: BP 147/59 Pulse 69 Temp 36.6 ?C (97.9 ?F) (Oral) Resp 18 Ht 152.4 cm (5') Wt 73.7 kg (162 lb 7.7 oz) SpO2 92% BMI 31.73 kg/m? NEUROLOGICAL: LOC: 0 - alert and responsive 0 LOC Questions: 0 - both correct 0 LOC Commands: 0 - both correct 0 Best Gaze: 0 - normal gaze 0 Visual: 0 - no visual loss 0 Facial Palsy: 0 - normal 0 Motor Left Arm: 0 - no drift 0 Motor Right Arm: 0 - no drift 0 Motor Left Le - no drift 0 Motor Right Le - no drift 0 Limb Ataxia: 0 - no ataxia (or aphasic, hemiplegic) 0 Sensory: 0 - normal 0 Best Language: 0 - normal 0 Dysarthria: 0 - normal 0 Extinction and Inattention: 0 - normal, none detected (or visual loss alone) 0 Daily NIHSS Score: 0 (05/15/24 0800 : Jessy Parikh MD 0 MENTAL STATUS: Alert, oriented to person, place and time and Follows commands CRANIAL NERVES: PERRLA, EOM's intact, Visual aparicio intact to confrontation, Extraocular movements intact, Facial sensation intact, Face symmetric, No facial droop or ptosis, hard of hearing, No dysarthria, Palate elevates symmetrically, and Tongue protrudes midline MOTOR: No drift and Normal tone MOTOR STRENGTH: RUE 5/5. LUE 4/5 extensors and 4+/5 flexors. RLE 5/5 (some difficulty with elevation but able to maintain, no drift noted). LLE 4+/5 in all muscle groups. REFLEXES: Not assessed SENSATION: Intact light touch COORDINATION: Finger-to- nose-finger intact bilaterally and [id number] intact bilaterally GAIT: Not assessed DATA: Diagnostic tests reviewed for today's visit: Lipids, HbA1c, CMP, CBC, Coags Recent Labs 05/15/24 0525 05/14/24 0629 05/14/24 0628 05/13/24 0552 05/13/24 0551 NA 135* 137 -- 140 -- K 4.1 4.6 -- 4.4 -- CHLOR 100 103 -- 103 -- CO2 23 22 -- 26 -- BUN 20 23* -- 25* -- CREAT 0.76 0.89 -- 0.87 -- GLUC 90 91 -- 99 -- CA 8.6 8.5 -- 8.6 -- MG -- -- -- 2.8* -- P 2.4* 4.0 -- 4.3 -- WBC 8.17 -- 6.22 -- 6.74 HB 10.8* -- 10.5* -- 10.4* HCT 33.7* -- 33.7* -- 33.3* PLT 342 -- 336 -- 334 INR -- 1.0 -- 1.0 -- APTT -- -- -- 28.5 -- Cardiac Enzymes Most recent labs and imaging results. Most recent labs Most recent imaging MEDICAL EVENTS: No medical events have been recorded. STROKE 9 CARE AND PREVENTION CHECKLIST 1. Is the patient currently on an ANTITHROMBOTIC medication (Antiplatelet or Anticoagulant): None 2. 3. 4. Is the patient on VTE prophylaxis: Pharmacological prophylaxis Pharmacological intervention type: Heparin SQ 5. GLYCEMIC Control Medications: Not Diabetic 6. Stroke BP Goals: SBP 130-160 Stroke BP Control: BP needs further management Stroke BP Goals - Hemorrhagic: SBP goal - Specify Specify SBP goals - Hemorrhagic: <160 7. Stroke IVF/Nutrition: Diet 8. TEMPERATURE Control: Normothermic 9. 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 Exam stable. EEG negative for seizures thus far. 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 Plan: SBP <160 Losartan 25mg daily Atenolol 25mg BID Continue FLUE TILE PRESS OPERATOR Ropinorole PT/OT following - patient skilled for SNF (plan for D/C Tuesday 05/16) Lines, Drains, and Airways Line Duration Periph (more content not included)...[facility]01-03-2025 Nurse Note* Damari Wiggins RN - 05/14/2024 11:20 AM EST AMBULATORY PATIENT EDUCATION TOPIC: MARIA ESTHER READINESS TO LEARN COGNITIVE ABILITY: Alert and oriented MOTIVATION TO LEARN: Eager FAMILY SUPPORT: Unable to assess - Family not present INSTRUCTION PROVIDED TO: Patient PATIENT LEARNS BEST BY: Individual Instruction Verbal Instruction FACTORS AFFECTING LEARNING: None PHYSICAL LIMITATIONS AFFECTING LEARNING: None LEARNING RESPONSE DIAGNOSIS: R/O endocaritis METHOD OF INSTRUCTION: Individual instruction Verbal instruction PATIENT / FAMILY RESPONSE: Verbalizes understanding of: POST-PROCEDURE INSTRUCTIONS-Correct actionsto take to reduce post procedure complications PRE-PROCEDURE INSTRUCTIONS-Correct action to take to follow pre-procedure instructions FOLLOW-UP PLAN: Complete - No need for follow-up SUPPLEMENTAL MATERIAL: Post MARIA ESTHER instructions given Post sedation instructions given REFERRAL (RECOMMENDATION): None Electronically Signed By Damari Wiggins RN In Department: CARDIOLOGY [facility]01-03-2025 Nurse Note* Damari Wiggins RN - 05/14/2024 11:20 AM EST AMBULATORY PATIENT EDUCATION TOPIC: MARIA ESTHER READINESS TO LEARN COGNITIVE ABILITY: Alert and oriented MOTIVATION TO LEARN: Eager FAMILY SUPPORT: Unable to assess - Family not present INSTRUCTION PROVIDED TO: Patient PATIENT LEARNS BEST BY: Individual Instruction Verbal Instruction FACTORS AFFECTING LEARNING: None PHYSICAL LIMITATIONS AFFECTING LEARNING: None LEARNING RESPONSE DIAGNOSIS: R/O endocaritis METHOD OF INSTRUCTION: Individual instruction Verbal instruction PATIENT / FAMILY RESPONSE: Verbalizes understanding of: POST-PROCEDURE INSTRUCTIONS-Correct actionsto take to reduce post procedure complications PRE-PROCEDURE INSTRUCTIONS-Correct action to take to follow pre-procedure instructions FOLLOW-UP PLAN: Complete - No need for follow-up SUPPLEMENTAL MATERIAL: Post MARIA ESTHER instructions given Post sedation instructions given REFERRAL (RECOMMENDATION): None Electronically Signed By Damari Wiggins RN In Department: [facility]IOLOGY [facility] NoteHNO ID: [id number] Author: CARI WONG MD, PhD Service: Neurology Stroke Author Type: Physician Type: Progress Notes Filed: 05/14/2024 17:15 Note Text: NEURO STROKE PROGRESS NOTE SERVICE DATE: 05/14/2024 SERVICE TIME: 9:00am Subjective INTERVAL HISTORY: - NAEON - SBP elevated at 174/77 this morning, down to 156/66 without intervention, did have low diastolic BP into the 30's, repeat with BP of 158/63; HR stable, afebrile, sating well on RA although was on 2L overnight - 20 minute BEM shows no EEG seizures, moderate severe diffuse encephalopathy - At the bedside, patient reporting no acute complaints. States that she continues to have fluctuating weakness of her LUE - Planning for MARIA ESTHER today (patient NPO) at 2pm - CBC stable, awaiting electrolytes MEDICATIONS: Current medications and allergies reviewed. Recommended/planned medication changes discussed in detail in the A/P section below. Objective PHYSICAL EXAM Vital Signs: BP 158/63 Pulse 68 Temp 36.5 ?C (97.7 ?F) (Oral) Resp 18 Ht 152.4 cm (5') Wt 73.7 kg (162 lb 7.7 oz) SpO2 94% BMI 31.73 kg/m? NEUROLOGICAL: LOC: 0 - alert and responsive 0 LOC Questions: 0 - both correct 0 LOC Commands: 0 - both correct 0 Best Gaze: 0 - normal gaze 0 Visual: 0 - no visual loss 0 Facial Palsy: 0 - normal 0 Motor Left Arm: 0 - no drift 0 Motor Right Arm: 0 - no drift 0 Motor Left Le - no drift 0 Motor Right Le - no drift 0 Limb Ataxia: 0 - no ataxia (or aphasic, hemiplegic) 0 Sensory: 0 - normal 0 Best Language: 0 - normal 0 Dysarthria: 0 - normal 0 Extinction and Inattention: 0 - normal, none detected (or visual loss alone) 0 Daily NIHSS Score: 0 (05/14/24 0900 : Bridget Schafer MD) 0 MENTAL STATUS: Alert, oriented to person, place and time and Follows commands CRANIAL NERVES: PERRLA, EOM's intact, Visual aparicio intact to confrontation, Extraocular movements intact, Facial sensation intact, Face symmetric, No facial droop or ptosis, hard of hearing, No dysarthria, Palate elevates symmetrically, and Tongue protrudes midline MOTOR: No drift and Normal tone MOTOR STRENGTH: RUE 5/5. LUE 4/5 extensors and 4+/5 flexors. RLE 5/5 (some difficulty with elevation but able to maintain, no drift noted). LLE 4+/5 in all muscle groups. REFLEXES: Not assessed SENSATION: Intact light touch COORDINATION: Finger-to- nose-finger intact bilaterally and [id number] intact bilaterally GAIT: Not assessed DATA: Diagnostic tests reviewed for today's visit: Lipids, HbA1c, CMP, CBC, Coags Recent Labs 05/14/24 0629 05/14/24 0628 05/13/24 0552 05/13/24 0551 05/12/24 0125 05/12/24 0122 05/11/24 2331 05/11/24 1843 NA 137 -- 140 -- -- -- 139 142 K 4.6 -- 4.4 -- -- -- 3.3* 3.8 CHLOR 103 -- 103 -- -- -- 107 100 CO2 22 -- 26 -- -- -- 20* 30 BUN 23* -- 25* -- -- -- 22* 25* CREAT 0.89 -- 0.87 -- -- -- 0.62 0.76 GLUC 91 -- 99 -- -- -- 109* 147* CA 8.5 -- 8.6 -- -- -- 7.0* 9.5 MG -- -- 2.8* -- -- -- 1.7 2.3 P 4.0 -- 4.3 -- -- -- 2.4* 3.2 WBC -- 6.22 -- 6.74 8.02 -- -- 9.20 HB -- 10.5* -- 10.4* 11.4* -- -- 12.3 HCT -- 33.7* -- 33.3* 35.0* -- -- 37.9 PLT -- 336 -- 334 324 -- -- 340 INR 1.0 -- 1.0 -- -- 1.1 -- 2.0* APTT -- -- 28.5 -- -- 21.2* -- 39.3* Cardiac Enzymes Recent Labs 05/11/24 2331 CK 90 Most recent labs and imaging results. Most recent labs Most recent imaging MEDICAL EVENTS: No medical events have been recorded. STROKE 9 CARE AND PREVENTION CHECKLIST 1. Is the patient currently on an ANTITHROMBOTIC medication (Antiplatelet or Anticoagulant): None 2. 3. 4. Is the patient on VTE prophylaxis: Pharmacological prophylaxis Pharmacological intervention type: Heparin SQ 5. GLYCEMIC Control Medications: Not Diabetic 6. Stroke BP Goals: SBP 130-160 Stroke BP Control: BP needs further management Stroke BP Goals - Hemorrhagic: SBP goal - Specify Specify SBP goals - Hemorrhagic: <160 7. Stroke IVF/Nutrition: Diet 8. TEMPERATURE Control: Normothermic 9. 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 [facility]01-02-2025 NoteHNO ID: [id number] Author: TRUDI BURGOS MD Service: Neurology Stroke Author Type: Resident Type: Plan of Care Filed: 05/13/2024 16:04 Note Text: Stroke Neurology Plan of Care Discussed negative endocarditis and aneurysmal workup with ASERT team and Neurosurgery. Okay for transfer from neurosurgery to stroke primary and verbal signout given by Faby Orozco APRN.CNP to myself. Discussed with ASERT team and stroke primary staff Dr. Cari Wong. Trudi Burgos MD Neurology PGY-3 [id number] 05/13/2024 4:04 [facility]01-02-2025 NoteHNO ID: [id number] Author: VANESA MANCIA RDMS Service: ? Author Type: Rubber Goods Tester Water Type: Progress Notes Filed: 05/13/2024 14:33 Note Text: Radiology Service Progress Note PATIENT NAME: Harjit Solomon DATE OF SERVICE: May 13, 2024 TIME: 2:33 PM PATIENT IDENTITY VERIFICATION COMPLETED USING TWO (2) IDENTIFIERS: Name and Date of confirmed by patient verbally. FALL SCREENING: Has the patient had 2 falls in the last year or 1 fall with injury or currently using an Ambulatory Assistive Device (Walker, Cane, Wheelchair, Crutches, etc.)? Inpatient: Screened on floor PATIENT GENDER DATA: Female. status: : No status: NO. PATIENT RELEVANT IMPLANT DATA REVIEWED: Not Applicable PATIENT PRESENTS WITH AN IMPLANTABLE OR ATTACHED HOME AND SCHOOL VISITOR: No RADIOLOGY DEPARTMENT: Ultrasound PERIPHERAL IV DATA: Not applicable SIGNED BY: Vanesa Mancia RDMS May 13, 2024 2:33 [facility]01-02-2025 NoteHNO ID: [id number] Author: FABY OROZCO APRN.PERSONAL INJURY SPECIALIST Service: Neurosurgery Author Type: Nurse Practitioner Type: Progress Notes Filed: 05/13/2024 13:02 Note Text: SERVICE DATE: 05/13/2024 SERVICE TIME: 1:02 PM NEUROSURGERY PROGRESS NOTE Please page [phone] after 6 PM and on weekends Subjective INTERVAL HPI: Ms. Harjit Solomon denies headaches. She had he MRI this morning. She complains of LUE pain and fatigue. She denies changes in vision, numbness, tingling, new worsening weakness. She endorses fatigue. No acute events overnight. Objective EXAM: 05/13/24 0800 05/13/24 1000 05/13/24 1100 05/13/24 1200 BP: 165/73 167/73 149/71 148/69 Pulse: 72 80 81 73 Resp: 22 29 26 26 Temp: 36.7 ?C (98 ?F) TempSrc: Oral SpO2: 99% 95% 96% 94% Weight: Height: Intake/Output Summary (Last 24 hours) at 05/13/2024 1242 Last data filed at 05/13/2024 0615 Gross per 24 hour Intake 440 ml Output 2200 ml Net -1760 ml NEURO: AANDOx4 PERRLA EOMI FS, TM Language intact including expressive, receptive, repetition and naming BUE 5/5 except left deltoid 4/5 BLE 5/5 with generalized weakness No clonus, babinski, hoffmans CARDIAC: RRR, NSR on tele PULMONARY: CTA, symmetrical chest rise ABDOMEN: soft nontender to palpation, acitve BS x 4 quads. DATA: Diagnostic tests reviewed for today's visit: MRI Brain: IMPRESSION: Similar appearance of small volume acute/subacute subarachnoid hemorrhage when compared to prior from CT brain on 05/12/2024, given differences in technique. Additional remote appearing blood products in the adjacent sulci. No acute intracranial abnormality otherwise. No abnormal intracranial enhancement or mass. Chronic white matter findings reflecting sequela of microvascular ischemia. 1. Out of bed and ambulating: Yes Needs PT or OT Evaluation: Yes 2. Central line present? No 3. Continued need for urinary catheter? Not Applicable 4. Nutrition: PO- Yes. 5. Restraints No. 6. 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 Home BP: 192/74 Office BP: 189/63 Current Assessment AND Plan Continue atenolol 25 mg daily SBP < 160 > 90 mmhg NEL (obstructive sleep apnea) 10/16/2011 - Present Yes Overview [facility] Current Assessment AND Plan CPAP HS PAF (paroxysmal atrial fibrillation) ([facility]) 10/20/2013 - Present Yes Current Assessment AND Plan Tele Hold coumadin K>4 Mg >2 Intracranial hemorrhage (HCC) 05/11/2024 - Present Yes Current Assessment AND Plan CT head with small volume acute SAH in the right precentral sulcus 05/11 CTA negative for underlying vascular lesion 05/12 CT Head stable to slight increase in SAH/ICH 05/13 MRI brain with stable appearance of acute/subacute SAH with remote appearance blood products in the adjacent sulci. No acute intracranial abnormality. No abnormal intracranial enhancement or mass. CAA vs hemorrhagic conversion of ischemic stroke No need for surgical intervention Discuss transfer to stroke neurology SBP < 160 > 90 mmHg Hold coumadin INR [address] head in 4 weeks PT/OT SCDs hold SQH for 48 hours * (Principal) SAH (subarachnoid hemorrhage) (HCC) 05/11/2024 - Present Yes Current Assessment AND Plan CT head with small volume acute SAH in the right precentral sulcus 05/11 CTA negative for underlying vascular lesion 05/12 CT Head stable to slight increase in SAH/ICH 05/13 MRI brain with stable appearance of acute/subacute SAH with remote appearance blood products in the adjacent sulci. No acute intracranial abnormality. No abnormal intracranial enhancement or mass. No need for surgical intervention Discuss transfer to stroke neurology SBP < 160 > 90 mmHg Hold coumadin INR [address] head in 4 weeks PT/OT SCDs hold SQH for 48 hours Current use of skilled nursing anticoagulation 05/11/2024 - Present Yes Current Assessment AND Plan Hold coumadin in setting of ICH/SAH Repeat CT head in 4 weeks Restless leg syndrome 05/11/2024 - Present Yes Current Assessment AND Plan Ropinirole 3 mg HS Obesity, Class I, BMI 30-34.9 05/12/2024 - Present Unknown Current Assessment AND Plan BMI 31.99 [facility] weight loss education provided at discharge Medication and Non-Pharmacologic VTE Prophylaxis/Anticoagulants 05/12/24 0715 activity - mobilize patient (wa,de) 05/11/24 1830 vte pharmacologic prophylaxis contraindicated ([place]) 05/11/24 1830 pneumatic compression stockings ([place]) VTE Prophylaxis: Contraindicated for 48 hours Plan of care discussed with: Provider, RN, Patient SIGNATURE: Faby Orozco APRN.CNP PATIENT NAME: Harjit Solomon DATE: May 13, 2024 TIME: 1:02 [facility]01-02-2025 NoteHNO ID: [id number] Author: ROMAIN GIANG ? Service: Pharmacy Author Type: Metal Punch Press Operator Type: Plan of Care Filed: 05/13/2024 12:56 Note Text: Insurance investigation completed Patient has active prescription insurance: No - Patient is self-pay, opted out of Part D Insurance loaded into [place]: None located at this time Test claim was completed to verify insurance is active: Unsuccessful Any questions, please reach out to your medication fabric and accessories estimator.[facility]01-02-2025 NoteHNO ID: [id number] Author: SHAMAR DAVIS RPh Service: Pharmacy Author Type: Pharmacist Type: Plan of Care Filed: 05/14/2024 09:28 Note Text: PHARMACY MEDICATION REVIEW Patient Name: Harjit Solomon : 1935 The following medications were updated within the FLUE TILE PRESS OPERATOR medication list: Medications ADDED to FLUE TILE PRESS OPERATOR medication list [place] 7.5 Mag Ox Ropinirole Medications CHANGED on FLUE TILE PRESS OPERATOR medication list Atenolol Medications REMOVED from FLUE TILE PRESS OPERATOR medication list Calcium Additional comments: fills with 2 pharmacies ; did have furosemide 40mg BID filled in November, but nothing more recent The below information represents the best possible medication history: Yes Medication history completed by: Pharmacist: Shamar Davis RPh Source of history: Pharmacy records: [facility] [place] and [facility] Medication nonadherence identified: Unable to assess Reconciliation completed: Yes All FLUE TILE PRESS OPERATOR medications addressed by LIP Patient interested in Bedside Delivery Services or using OP Pharmacy at discharge? Unable to assess Preferred outpatient pharmacy: e- [id number] - [place], [place] [id number] - [address] - [phone] 1812 e- [id number] - [place] [address] - [address] - [phone] e- [id number] [place] [id number] - [address] - [phone] Allergies: Sutures Itching Actonel [Risedronat* GI Upset Comment:States had GI bleed Adhes. Scyg-Qyrz-Ey* Beets Rash Comment:raised injection site when allergy tested Cantaloupe Hives Eggplant Hives Fosamax [Alendronat* GI Upset Comment:States had GI bleed Mobic [Meloxicam] Other: See Comments Comment:Edema, HTN Mold Hives Neurontin [Gabapent* Other: See Comments Comment:muscle spasms Penicillins Pork Intolerance Wheat Gluten Hives Yeast, Dried Hives Prior to Admission Medications Prescriptions Last Dose Informant Patient Reported? Taking? HYDROcodone-Acetaminophen (NORCO) 7.5-325 mg per tablet Yes Yes Sig: Take 1 tablet by mouth four times a day as needed for pain. aspirin, enteric coated (ASPIRIN, ENTERIC COATED) 81 mg EC tablet Unknown Yes No Sig: Take 81 mg by mouth once daily. atenolol (TENORMIN) 25 mg tablet Yes Yes Sig: Take 25 mg by mouth once daily. losartan (COZAAR) 100 mg tablet No Yes Sig: Take 1 tablet by mouth once daily. magnesium oxide (MAG-OX) 400 mg (241.3 mg magnesium) tablet Yes Yes Sig: Take 400 mg by mouth once daily. rOPINIRole (REQUIP) 1 mg tablet Yes Yes Sig: Take 0.5 mg by mouth two times a day. In the evening and at bedtime warfarin (COUMADIN) 3 mg tablet Yes Yes Sig: Take 3 mg by mouth daily as directed. Facility-Administered Medications: [facility]01-01-2025 NoteHNO ID: [id number] Author: SUSAN JOHNSON MD Service: Neurosurgery Author Type: Resident Type: Progress Notes Filed: 05/12/2024 10:06 Note Text: Neurosurgery Inpatient Progress Note [facility]ICH CTA negative for underlying vascular lesion Objective: 05/12/24 0800 05/12/24 0900 05/12/24 0901 05/12/24 0930 BP: 126/58 118/56 128/58 Pulse: 62 72 76 69 Resp: 20 22 22 20 Temp: 37.2 ?C (99 ?F) TempSrc: Oral SpO2: 97% 95% 96% 98% Weight: Height: Intake/Output Summary (Last 24 hours) at 05/12/2024 1004 Last data filed at 05/12/2024 0600 Gross per 24 hour Intake 1033 ml Output 1260 ml Net -227 ml EXAM: [id number] Alert, oriented x3 Language intact including expressive, receptive, repetition and naming PERRL. EOMs intact FS, TM BUE 5/5 BLE 5/5 Normal tone No drift Sensation intact to light touch BP 128/58 Pulse 69 Temp (Src) 99 (Oral) Resp 20 Ht 5' 0" (1.52m) Wt 163 lb 12.8 oz (74.3kg) SpO2 98% BMI 31.99 kg/(m2). O2 Therapy: Room Air, Liters: 2.0 A/P: 89 year old RHW w/PMH HTN, HLD, pAF on warfarin, NEL, osteoporosis, secondary hypothyroidism transferred from [place] ED May 11, 2024 with RF cortical SAH/ICH. Differential: Hemorrhagic conversion of ischemic stroke vs CAA vs underlying aneurysm/vascular malformation - SDU care - SBP <160 - Admission labs including coags; f/u INR after KCentra - No acute neurosurgical intervention at this time - MRI wwo pending - Stroke c/s - SCDs only, hold SQH x48 hrs - PT/OT Staff: Dr. Kim Signature: Susan Johnson MD PGY-4, Neurological Surgery Pager: [phone] Neurosurgery airport operations coordinator: [id number] 10:04 AM 05/12/24 Please page [phone] on weekends and after [facility]pm[facility] NoteHNO ID: [id number] Author: CLINT BERMUDEZ APRN.CNP Service: Neurology ICU Author Type: Nurse Practitioner Type: Progress Notes Filed: 05/12/2024 07:26 Note Text: SERVICE DATE: 05/12/2024 SERVICE TIME: 7:26 AM NEURO ICU PROGRESS NOTE DATE OF ADMISSION: 05/11/2024 Subjective Hospital Course: 05/11: admit with small right frontal gyrus SAH/ICH. CTA negative. SAH precautions d/c'd 05/12: no NICU needs, to SDU Events Since Last Note: see above Objective BP 121/55 Pulse (!) 58 Temp 36.8 ?C (98.2 ?F) (Oral) Resp 14 Ht 152.4 cm (5') Wt 74.3 kg (163 lb 12.8 oz) SpO2 97% BMI 31.99 kg/m? Weight change: Neuro: awake, alert oriented. PERRL EOMI FS TM BUE 5/5 BLE 3-4/5 sensation intact CV: SR on tele Pulm: clear, Mechanical Ventilation: No. Supplemental Oxygen: Yes. NC GI/: bs+ Skin/Extremities: Edema- Yes Peripheral pulses- Present all extremities Diagnostic tests reviewed for today's visit: Most recent labs and imaging results. Lines, Drains, and Airways Line Duration Peripheral 05/11/24 External Facility Short Left Forearm 18 Gauge 1 day Peripheral 05/12/24 0657 Right Forearm 20 Gauge <1 day Drain Duration External Collection Device 05/11/24 2316 <1 day ICU Checklist Last Documented/Reviewed time: 05/12/2024 7:21 AM ICU Consent Complete?: No ICU Code Status "History assess/Full code by default: No, active code status present A= Assess, Prevent, Manage Pain Pain adequately controlled?: No C= Choice of Sedation and Analgesia RASS at Goal?: Yes B= Both Spontaneous Awakening and Breathing Trials Ventilator: None D= Delirium: Assess, Prevent and Manage ICU Delirium Status: CAM Negative - no action required Sleep adequate?: No Restraint Status: None E= Early Mobility/Excercise ICU Mobility: ICU Mobility Goal: PT/OT consult ordered F= Family Engagement and Empowerment ICU plan of care visit at bedside in last 24 hours: Yes, Provider, RN, Patient/ designee ICU Disposition: ICU Disposition-POC Detail: Yes-Automation Analyst notified Prevention: Line Status: None Patricio Status: None Pressure Injury Status: None GI/Stress Ulcer Prophylaxis: None - not required Nutrition is at Goal: Advancing to goal VTE Prophylaxis: Chemoprophylaxis: No chemoprophylaxis Mechanical Prophylaxis: Thigh high SCD No Chemoprophylaxis Reason: Bleeding risk PERSONAL INVOLVEMENT IN CARE: Reviewing initiation, responses and adjustments to therapies, coordination of care, and updating family with Staff Physician, Dr. Ceja. Assessment AND Plan Neurology * SAH (subarachnoid hemorrhage) ([facility])- (present on admission) [id number] SAH PLAN: CTA negative for aneurysm SAH precautions d/c'd NSGY primary SBP <160 MRI WWO when able Restless leg syndrome- (present on admission) cont requip Intracranial hemorrhage (HCC)- (present on admission) see "SAH: for initial plan Cardiovascular PAF (paroxysmal atrial fibrillation) ([facility])- (present on admission) home regimen: atenolol 25mg PLAN EKG echo resume beta sera as necessary Essential (primary) hypertension- (present on admission) resume losartan starting at 50mg daily - increase as necessary Pulmonary NEL (obstructive sleep apnea)- (present on admission) CPAP Other 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- (present on admission) heparin for pAF, now on hold Kcentra ordered on arrival Exogenous Class 1 Obesity Medication and Non-Pharmacologic VTE Prophylaxis/Anticoagulants 05/12/24 0715 activity - mobilize patient (wa,de) 05/11/24 1830 vte pharmacologic prophylaxis contraindicated ([place]) 05/11/24 1830 pneumatic compression stockings ([place] VTE Prophylaxis: Contraindicated ICH/SAH Plan of care discussed with: Provider, RN, Patient SIGNATURE: Clint Bermudez APRN.CNP PATIENT NAME: Harjit Solomon DATE: May 12, 2024 TIME: 7:26 [facility]01-01-2025 NoteHNO ID: [id number] Author: VEGA VELASQUEZ RT(R) Service: Radiology Author Type: Director Of Retail Operations Type: Progress Notes Filed: 05/12/2024 05:05 Note Text: Radiology Service Progress Note PATIENT NAME: Harjit Solomon DATE OF SERVICE: May 12, 2024 TIME: 5:05 AM PATIENT IDENTITY VERIFICATION COMPLETED USING TWO (2) IDENTIFIERS: Name and Date of confirmed by patient verbally and Name and Date of confirmed by identification band. FALL SCREENING: Has the patient had 2 falls in the last year or 1 fall with injury or currently using an Ambulatory Assistive Device (Walker, Cane, Wheelchair, Crutches, etc.)? Inpatient: Screened on floor PATIENT GENDER DATA: Female. status: : No status: NO. PATIENT RELEVANT IMPLANT DATA REVIEWED: Yes PATIENT PRESENTS WITH AN IMPLANTABLE OR ATTACHED HOME AND SCHOOL VISITOR: No RADIOLOGY DEPARTMENT: CT; Exam(s) Completed: Brain PERIPHERAL IV DATA: Not applicable SIGNED BY: RT Tello(R) May 12, 2024 5:05 [facility]12-31-2024 NoteHNO ID: [id number] Author: JESIKA HALL RT(R) Service: Radiology Author Type: Technologist Type: Progress Notes Filed: 05/11/2024 20:48 Note Text: Radiology Service Progress Note DATE OF SERVICE: May 11, 2024 TIME: 8:47 PM PATIENT IDENTITY VERIFICATION COMPLETED USING TWO (2) STANDARD IDENTIFIERS: Name and Date of confirmed by patient verbally and Name and Date of confirmed by identification band. FALL SCREENING: Has the patient had 2 falls in the last year or 1 fall with injury or currently using an Ambulatory Assistive Device (Walker, Cane, Wheelchair, Crutches, etc.)? Inpatient: Screened on floor PATIENT GENDER DATA: Female. status: : No status: NO. PATIENT RELEVANT IMPLANT DATA REVIEWED: Yes PATIENT PRESENTS WITH AN IMPLANTABLE OR ATTACHED HOME AND SCHOOL VISITOR: No ALLERGIES: Reviewed and unchanged CONTRAST ALLERGY: NO. EXAM: CT -CONTRAST INDUCED NEPHROPATHY RISK FACTORS: Patient age > 60 years CREATININE: Creatinine Date Value Ref Range Status 05/11/2024 0.76 0.58 - 0.96 mg/dL Final 04/09/2014 0.86 0.70 - 1.40 mg/dL Final 06/25/2013 0.79 0.70 - 1.40 mg/dL Final Estimated Glomerular Filtration Rate Date Value Ref Range Status 05/11/2024 75 >=60 mL/min/1.73m? Final Comment: Estimated Glomerular Filtration Rate (eGFR) is calculated using the 2020 CKD-EPI creatinine equation. This equation utilizes serum creatinine, sex, and age as parameters. The creatinine assay has traceable calibration to isotope dilution-mass spectrometry. Refer to KDIGO guidelines for clinical interpretation. In patients with unstable renal function, e.g. those with acute kidney injury, the eGFR may not accurately reflect actual GFR. eGFR- Date Value Ref Range Status 04/09/2014 >60 Final P.O.C.T. RESULTS: POC done: Yes, See Lab Tab May 11, 2024 TREATMENT: N/A PERIPHERAL IV DATA: Inpatient - refer to LDA documentation RADIOLOGY DEPARTMENT: CT; Exam(s) Completed: Brain , CTA Brain , and CTA Neck SIGNATURE: RT Delroy(R) PATIENT NAME: Harjit Solomon DATE: May 11, 2024 TIME: 8:47 [facility]12-31-2024 NoteHNO ID: [id number] Author: NORMA MOON APRN.ADRIANA Service: ? Author Type: Nurse Practitioner Type: Progress Notes Filed: 05/11/2024 20:04 Note Text: CRITICAL CARE TRANSPORT MEDICAL CONTROL CONSULT NOTE Patient Name: Harjit Solomon Service Date: May 11, 2024 Referring Facility: [facility] Accepting Facility: [facility] REASON FOR TRANSPORT: higher level neurosurgical care REASON FOR CONSULT: BP management CCT MEDICAL CONTROL CONSULT SUMMARY: History, physical exam findings, and available background patient information from [facility] Transport Nurse were reviewed at the time of consult. Pertinent additional information was reviewed as follows: CCT transport request log In brief, Harjit Solomon is a 89 year old female with a history, known at time of consult, significant for afib on coumadin who presented to [facility] for evaluation of left arm weakness. CT + for IPH, treated with vitamin K and cardene infusion PLAN: Multiple factors considered including: patient history/condition/trajectory/stability, referring and receiving destinations, duration of transport time, medications and therapies available during transport, patient safety, as well as crew capabilities. Orders given for: cardene titration Plan of care and orders confirmed and read back via telephone with [facility] Transport parole board member, David Campos RN SIGNATURE: Norma Moon APRN.CNP Acute Care Nurse Practitioner [facility] History of Present illness Narrative* Norma Moon APRN.ADRIANA - 05/11/2024 5:19 PM EST Images from the original note were not included. CRITICAL CARE TRANSPORT MEDICAL CONTROL CONSULT NOTE Patient Name: Harjit Solomon Service Date: May 11, 2024 Referring Facility: [facility] Accepting Facility: [facility] REASON FOR TRANSPORT: higher level neurosurgical care REASON FOR CONSULT: BP management CCT MEDICAL CONTROL CONSULT SUMMARY: History, physical exam findings, and available background patient information from [facility] Transport Nurse were reviewed at the time of consult. Pertinent additional information was reviewed as follows: CCT transport request log In brief, Harjit Solomon is a 89 year old female with a history, known at time of consult, significant for afib on coumadin who presented to [facility] for evaluation of left arm weakness. CT + for IPH, treated with vitamin K and cardene infusion PLAN: Multiple factors considered including: patient history/condition/trajectory/stability, referring and receiving destinations, duration of transport time, medications and therapies available during rae sport, patient safety, as well as crew capabilities. Orders given for: cardene titration Plan of care and orders confirmed and read back via telephone with [facility] Transport parole board member, David Campos RN SIGNATURE: Norma Moon APRN.CNP Acute Care Nurse Practitioner Critical Care [facility] Dis[facility] summary Author Duglas Shields [facility] May 12, 2023 10:03am Note Date/Time May 12, 2023 7: 50am [facility] Medical Records Department [address] [place] [address] Emergency Department Summary 05/12/23 MR#: [id number] Acct: [id number] Name: JOYCE SOLOMON Rep #:[id number] From: Duglas Shields MD PCP: Dr. Doyle Swenson MD Status: REG ER Location: ED HPI History of Present Illness Chief Complaint: Fever Informant: patient and EMS Narrative Narrative: Patient comes in by EMS for fever muscle aches and headache. Patient states she has had symptoms for 3 days. Her appetite is down but she isable to eat and drink and has no nausea vomiting or diarrhea or abdominal pain. She does have a slight cough. But she does not feel short of breath. She has ahistory of pulmonary hypertension so checks her oxygen level. This morning it was in the high 80s but I do not know exactly what number. But she states she does not know if her machine was working right. It was evidently normal per EMSand it is normal here at 94%. When it was abnormal at home she was not more dyspneic. She has known exposure to COVID. Her daughter drove her to a doctor's appointment last week and ended up testing positive for COVID. Patientalso has no urinary symptoms. [facility] Medical History (Updated 05/12/23 @ 10:[address] Duglas Shields MD) Arthritis Atrial fibrillation Closed compression fracture of L2 vertebra Community acquired pneumonia COPD (chronic obstructive pulmonary disease) CPAP (continuous positive airway pressure) dependence Difficulty balancing Essential (primary) hypertension Fatigue Hiatal hernia History of stress test HTN (hypertension) Hypertensive emergency Incomplete right bundle branch block Limb weakness Lumbar compression fracture Migraines Multiple fractures of ribs, left side, initial encounter for closed fracture Obesity Obstructive sleep apnea Osteoporosis Pneumonia Pulmonary hypertension Restless legs Scarlet fever Secondary pulmonary arterial hypertension Shoulder fracture, left Sleep apnea Thyroid disease Wrist fracture, right Home Medications cholecalciferol (vitamin D3) 25 mcg (1,000 unit) capsule 1,000 unit PO DAILY supplement 12/25/16 [History Last Taken 02/09/22] losartan 100 mg tablet 100 mg PO DAILY HTN 03/18/18 [History Last Taken 02/09/22] denosumab 60 mg/mL subcutaneous syringe (Prolia) 60 mg subcut [id number] osteoporosis 10/08/19 [History Last Taken 08/24/21] calcium carb-ergocalciferol (vit D2) 600 mg calcium-200 unit tablet 1 tab PO BIDsupplement 07/24/21 [History Last Taken 02/09/22] magnesium oxide 420 mg tablet 420 mg PO QHS supplement 07/24/21 [History Last Taken 02/08/22] ferrous sulfate 325 mg (65 mg iron) tablet 325 mg PO DAILY supplement 11/22/21 [History Last Taken 02/09/22] acetaminophen 500 mg tablet 500 mg PO Q6H PRN Pain 01/01/22 [History Last Taken Unknown] atenolol 25 mg tablet 25 mg PO QAM HTN 01/01/22 [History Last Taken 02/09/22] atenolol 50 mg tablet 50 mg PO QPM HTN 01/01/22 [History Last Taken 02/08/22] warfarin 2 mg tablet 2 mg PO QMWF 04/10/22 [History Last Taken Unknown] warfarin 3 mg tablet 3 mg PO SUTUTHSA 04/10/22 [History Last Taken Unknown] furosemide 20 mg tablet 40 mg PO DAILY diuretic 01/28/23 [History Last Taken Unknown] hydrocodone-acetaminophen 5-325mg 5mg-325mg 1 tab PO BID pain 4-5 01/28/23 [History Last Taken Unknown] potassium chloride 20 mEq tablet,extended release 20 meq PO DAILY 01/28/23 [History Last Taken Unknown] ropinirole 1 mg tablet 1 mg PO TID 01/28/23 [History Last Taken Unknown] sennosides 8.6 mg-docusate sodium 50 mg tablet (Stool Softener-Stimulant Laxative) 2 tab PO BID PRN stool softener 01/28/23 [History Last Taken Unknown] ondansetron 4 mg disintegrating tablet 4 mg PO Q8H PRN PRN Nausea #10 tabs 05/12/23 [Rx Last Taken Unknown] Allergy/AdvReac Type Severity Reaction Status Date / Time cefazolin [From Ancef] Allergy Severe Swelling Verified 05/12/23 07:35 silk Allergy Intermediate itching Verified 05/12/23 07:35 beet [Beet] Allergy Hives Verified 05/12/23 07:35 cantaloupe Allergy Food Verified 05/12/23 07:35 Allergy eggplant Allergy Hives Verified 05/12/23 07:35 Food Allergies: Uncoded Allergy Itching Verified 05/12/23 07:35 levofloxacin [From Levaquin] Allergy Unknown Verified 05/12/23 07:35 mold Allergy NEEDS Verified 05/12/23 07:35 FOLLOW-UP Penicillins Allergy Unknown Verified 05/12/23 07:35 tomato Allergy Food Verified 05/12/23 07:35 Allergy wheat Allergy Hives Verified 05/12/23 07:35 gabapentin [From Neurontin] AdvReac Other Verified 05/12/23 07:35 meloxicam [From Mobic] AdvReac Other Verified 05/12/23 07:35 oxycodone [From OxyIR] AdvReac Nausea Verified 05/12/23 07:35 risedronate sodium AdvReac Other Verified 05/12/23 07:35 [From Actonel] Family History Other Cancer Diabetes Heart disease Surgical History H/O partial thyroidectomy History of appendectomy History of cholecystectomy History of kyphoplasty History of parathyroidectomy History of thymectomy History of thyroid surgery History of tonsillectomy Hx of appendectomy Hx of bilateral cataract extraction Hx of cholecystectomy Hx of tonsillectomy Social History adopted: No household members: none housing: condominium number of children: 2 current occupational status: retired current occupational exposures/hazards: No pets and animals: No leisure activities: reading and other history of recent travel: Yes (concert in [place]) Smoking Status: Never smoker alcohol intake: never substance use type: does not use caffeine: No ROS ROS ED ROS Narrative A complete review of systems was performed and is negative except as documented in the history of present illness. Some specific details below. Constitutional: She has had fevers chills and some muscle aches. Generalized malaise. See history of present illness. EYE: No discharge, visual complaints, or pain. ENT: No difficulty swallowing. No swelling. No pain. No reflux symptoms. CV: No chest pain or palpitations. No syncope. Respiratory: Occasional mild dry cough but not short of breath. See history of present illness. GI: No abdominal pain. No nausea vomiting diarrhea. No blood in stool. But appetite is down slightly. : No frequency dysuria or hematuria. Musculoskeletal: No recent trauma. She does have some mild diffuse myalgias. Skin: No rash. Nondiaphoretic. Neuro: No focal weakness or numbness. Endocrine: No polyuria or polydipsia. EXAM Physical Exam Narrative Exam Narrative: CONSTITUTIONAL: Patient is nontoxic in appearance. The patient looks comfortable. Work of breathing looks normal. HEENT: No notable trauma. Mucous membranes are still moist. No sinus tenderness. EYES: No conjunctival injection. No pallor. NECK:No JVD. No stridor. CARDIOVASCULAR: Regular rate. Irregular rhythm. No notable murmur. No JVD. RESPIRATORY: No respiratory distress. Breathing is unlabored. No wheezes. No rhonchi. No rales. No pain with a deep breath. No chest wall tenderness. Saturations are 94% on room air on the monitor while I am in the room. GASTROINTESTINAL: Not distended. Bowel sounds are normal. No tenderness. No guarding. No rebound. No palpable mass. No bruit is heard. GENITOURINARY: No tenderness over the bladder. No CVA tenderness. MUSCULOSKELETAL: Atraumatic. She does have some chronic peripheral edema but states that is totally normal for her.. No cord. No tenderness along the deep venous system. No asymmetry. No distended veins. NEUROLOGICAL: Patient is alert and appropriate. No focal deficit noted. SKIN: No noted rashes. No diaphoresis. PSYCHIATRIC: Patient is calm. Mood is appropriate. Const Vital Signs: 05/12/23 07:31 05/12/23 07:37 05/12/23 07:37 Temperature 99.9 F H Temperature Source Temporal Pulse Rate 90 Respiratory Rate 15 Respiratory Effort Normal Non-Labored Blood Pressure 201/81 H Blood Pressure Mean 121 Pulse Ox 90 93 Oxygen Delivery Method Room Air Room Air MDM MDM MDM Narrative Medical decision making narrative: My independent interpretation of patient's chest x-ray shows no acute process and final reading is similar. Patient CBC shows normal white count. Mildly low hemoglobin but this is not offher baseline. Platelets are normal. Patient's INR is therapeutic at 2.2. Patient's electrolytes show no marked abnormalities. Minimal elevation in his. Patient's urinalysis is negative. Patient's flu and COVID are negative. This patient does have COVID type symptoms and known exposure but her test is negative. I do not think this justifies Paxlovid. She is 3 days into this. But her vitals are good. She has normal saturations. I will write for some Zofran as with viral illnesses nausea is a common feature. We discussed returning if she is getting persistent fevers, trouble breathing pain vomiting or any other concerns. She is comfortable and would like to go home. She is also walked down the green several times without any difficulty or dyspnea Lab Data Attestation: I reviewed the patient's lab results. Labs: Laboratory Results - last 24 hr 05/12/23 05/12/23 07:38 08:55 WBC 7.2 RBC 3.68 L Hgb 10.6 L Hct 34.0 L MCV 92.4 MCH 28.8 MCHC 31.2 L RDW Std Deviation 46.5 H RDW Coeff of Tiffani 13.5 Plt Count 362 MPV 9.5 Immature Gran % (Auto) 0.800 Neut % (Auto) 65.0 Lymph % (Auto) 13.0 L Emanuel % (Auto) 19.2 H Eos % (Auto) 1.3 Baso % (Auto) 0.7 Absolute Neuts (auto) 4.7 Absolute Lymphs (auto) 0.93 Nucleated RBC % 0 PT 24.4 H INR 2.2 Sodium 135 L Potassium 3.9 Chloride 100 Carbon Dioxide 30.0 Anion Gap 5 BUN 14 Creatinine 0.78 Est GFR (MDRD) Af Amer 90 Est GFR (MDRD) Non-Af 74 BUN/Creatinine Ratio 18.0 Glucose 108 H Calcium 9.2 Urine Color Straw Urine Clarity Clear Urine pH 8.0 Ur Specific [place] 1.010 Urine Protein 30 H Urine Glucose (UA) Normal Urine Ketones Negative Urine Occult Blood 10 H Urine Nitrite Negative Urine Bilirubin Negative Urine Urobilinogen Normal Ur Leukocyte Esterase Negative Urine RBC 0-5 SEEN Urine WBC 0-5 SEEN Ur Squamous Epith Cells 0-5 SEEN Urine Bacteria 0 SEEN Urine Mucus 0 SEEN Radiography Diagnostic Testing: Clinical Impression(s) from Imaging Studies Chest X-Ray 05/12/23 07:50 IMPRESSION: No acute thoracic pathology. Electronically Signed: River Condon MD at 9:32 EST , Discharge Plan Triage Chief Complaint: Fever ED Provider: Duglas Shields Dx/Rx/DC Orders Clinical Impression: Exposure to COVID-19 virus, Acute viral syndrome Instructions: ED Viral Syndrome (Adult) Prescriptions: New ondansetron [ondansetron] 4 mg tablet,disintegrating 4 mg PO Q8H PRN PRN (Reason: Nausea) Qty: 10 0RF No Action Prolia 60 mg/mL syringe 60 mg SC [id number] Patient Comments: due February Rx Instructions: due in february atenolol 25 mg tablet 25 mg PO QAM Patient Comments: TAKE 1 TABLET BY MOUTH IN THE MORNING atenolol 50 mg tablet 50 mg PO QPM ferrous sulfate 325 mg (65 mg iron) tablet 325 mg PO DAILY ropinirole 1 mg tablet 1 mg PO TID hydrocodone-acetaminophen 5-325 mg tablet 1 tab PO BID potassium chloride 20 mEq tablet extended release 20 meq PO DAILY cholecalciferol (vitamin D3) 1,000 UNIT capsule 1,000 unit PO DAILY acetaminophen 500 mg tablet 500 mg PO Q6H PRN (Reason: Pain) losartan 100 MG tablet 100 mg PO DAILY magnesium oxide 420 mg tablet 420 mg PO QHS Patient Comments: TAKE 1 TABLET BY MOUTH ONCE DAILY calcium carbonate-vitamin D2 600 mg calcium- 200 unit Tablet 1 tab PO BID furosemide 20 mg tablet 40 mg PO DAILY sennosides-docusate sodium [Stool Softener-Stimulant Laxat] 8.6-50 mg tablet 2 tab PO BID PRN (Reason: stool softener) warfarin 2 mg Tablet 2 mg PO QMWF warfarin 3 mg Tablet 3 mg PO [facility] Primary Care Provider: Doyle Swenson Referrals: Doyle Swenson MD [Primary Care Provider] - 3-5 Days if not improving Disposition Disposition: Home, Self Care What to do if you have Problems For any increased pain, shortness of breath, bleeding, nausea or vomiting, chestpain, or any unexpected problems, contact your Primary Care Provider. Call [facility] ([phone]) or report to the closest Emergency Room. Call 911 if necessary. 05/12/23 1003 <Electronically signed by Duglas Shields MD> Cosigner Signature (if applicable): CC: Dr. Doyle Swenson MD ~ Signed [facility] Work Phone: Evaluation note* Diagnosis Onset Date Resolution Status Dyspnea on exertion chronic Essential (primary) hypertension chronic Paroxysmal atrial fibrillation chronic Hematemesis resolved [facility] Work Phone: evaluation note* Diagnosis Onset Date Resolution Status Hematemesis resolved [facility] Work Phone: evaluation note* Diagnosis Onset Date Resolution Status Hematemesis resolved Elevated C-reactive protein (CRP) acute Ileitis acute [facility] Work Phone: evaluation note* Diagnosis Onset Date Resolution Status Elevated C-reactive protein (CRP) acute Ileitis acute Elevated C-reactive protein (CRP) acute [facility] Work Phone: evaluation note* Diagnosis Onset Date Resolution Status Elevated C-reactive protein (CRP) acute Ileitis acute Elevated C-reactive protein (CRP) acute Dyspnea on exertion chronic Essential (primary) hypertension chronic Paroxysmal atrial fibrillation [facility] Work Phone: Evaluation note* Diagnosis Onset Date Resolution Status Elevated C-reactive protein (CRP) acute Dyspnea on exertion chronic Essential (primary) hypertension chronic Paroxysmal atrial fibrillation chronic [facility] Work Phone: Evaluation note* Diagnosis Onset Date Resolution Status Elevated C-reactive protein (CRP) acute Dyspnea on exertion chronic Essential (primary) hypertension chronic Paroxysmal atrial fibrillation chronic Debility acute Intractable low back pain ac [place] Unable to ambulate acute [facility] Work Phone: Evaluation note* Diagnosis Onset Date Resolution Status Elevated C-reactive protein (CRP) acute Dyspnea on exertion chronic Essential (primary) hypertension chronic Paroxysmal atrial fibrillation chronic Debility acute Intractable low back pain ac [place] Unable to ambulate acute Atrial fibrillation acute Compression fracture of L3 vertebra acute Debility acute Edema acute Hypomagnesemia acute Intractable low back pain ac [place] Iron deficiency anemia acute Osteoporosis acute Restless leg syndrome acute Vitamin D deficiency acute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 9 :08am SAH May 25, 2024 8 :25am SAH May 27, 2024 1 0:39am SAH May 28, 2024 1 2:07pm SAH May 30, 2024 2 :19pm Localized edema May 31, 2024 8 :40am SAH May 31, 2024 1 1:25am CAT OF HEAD June 03, 2024 5 :59pm Aphasia following nontraumatic subarachn oid hemorr June 14, 2024 10:02am fall June 26, 2024 12:26pm L1, L2 FRACTURE; MULTIPLE RIB FX, RIGHT June 30, 2024 6:43pm 6 M FU July 26, 2024 11: 15am CVA RULE OUT Sindy 21st, 2025 2:0 1pm Reason for Visit Admit Date Cerebral amyloid angiopathy May 16, 2024 4:02pm Debility May 16, 2024 4: 02pm Essential (primary) hypertension May 16, 2024 4:02pm Nightmares May 16, 2024 4: 02pm Osteoporosis May 16, 2024 4: 02pm Subarachnoid hemorrhage May 16 4:02pm Hypophosphatemia May 16, 2024 4: 02pm Paroxysmal atrial fibrillation May [id number] 4:02pm Restless leg syndrome May 16, 2024 4:02pm Acute cystitis with positive culture May 4:02pm Catheter-associated urinary tract infect ion May 16, 2024 4:02pm Daytime somnolence May 16, 2024 4: 02pm Hypomagnesemia May 16, 2024 4: 02pm Urine retention May 16, 2024 4: 02pm Elevated PTHrP level May 16, 2024 4 :02pm Hyperlipidemia May 16, 2024 4: 02pm Hypothyroidism May 16, 2024 4: 02pm Iron deficiency anemia May 16, 2024 4:02pm residential (current) use of anticoagulant s May 16, 2024 4:02pm 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, 2024 4:02pm Sleep apnea May 16, 2024 4: 02pm Venous insufficiency of both lower extre mities May 16, 2024 4:02pm Vitamin D deficiency May 16, 2024 4 :02pm Atrial fibrillation May 16, 2024 4: 02pm Debility May 30, 2024 2 :19pm Essential (primary) hypertension May 30, 2024 2:19pm Hemorrhagic stroke May 30, 2024 2 :19pm Insomnia May 30, 2024 2 :19pm Obstructive sleep apnea May 30 2:19pm Subarachnoid hemorrhage May 30 2:19pm Restless leg syndrome May 30, 2024 2:19pm Hypomagnesemia May 30, 2024 2 :19pm Neuropathic pain May 30, 2024 2 :19pm Urinary tract infection May 30 2:19pm Urine retention May 30, 2024 2 :19pm Afib May 30, 2024 2 :19pm Cerebral amyloid angiopathy June 6:43pm Debility February 19th, 2025 6:43pm Essential (primary) hypertension Februar y 2024 6:43pm Insomnia June 30, 2024 6:43pm Obstructive sleep apnea June 30, 025 6:43pm Osteoporosis June 30, 2024 6:43pm Subarachnoid hemorrhage June 30, 025 6:43pm Restless leg syndrome June 30 6:43pm Compression fracture of L2 June 6:43pm Compression fracture of L3 vertebra Febr uary 2024 6:43pm Hypomagnesemia June 30, 2024 6:43pm Multiple falls June 30, 2024 6:43pm Multiple rib fractures June 30 6:43pm Multiple transverse process fractures Fe bruary 2024 6:43pm Urine retention June 30, 2024 6:43pm Afib June 30, 2024 6:43pm Fracture of fifth metatarsal bone of rig ht foot June 30, 2024 6:43pm Dyspnea on exertion July 26, 2024 11: 15am Essential (primary) hypertension July 102024 11:15am Paroxysmal atrial fibrillation July 11:15am Chief Complaint Admit Date SAH May 30, 2024 2 :19pm Aphasia following nontraumatic subarachn oid hemorr June 14, 2024 10:02am fall June 26, 2024 12:26pm L1, L2 FRACTURE; MULTIPLE RIB FX, RIGHT June 30, 2024 6:43pm 6 M FU July 26, 2024 11: 15am CVA RULE OUT August 30, 2024 2:0 1pm CVA RULE OUT August 31, 2024 8:0 3am HYPERTENSIVE URGENCY & WORSENING CONFUSI ON September 01, 2024 2:05am HYPERTENSIVE URGENCY & WORSENING CONFUSI ON September 02, 2024 8:50am HYPERTENSIVE URGENCY & WORSENING CONFUSI ON September 03, 2024 12:09pm pain October 01, 2024 3:21p m ACUTE TOXIC ENCEPHALOPATHY 2/2 ADR TO HY DROCODONE October 04, 2024 12:39am Reason for Visit Admit Date Debility May 30, 2024 2 :19pm Essential (primary) hypertension May 30, 2024 2:19pm Hemorrhagic stroke May 30, 2024 2 :19pm Insomnia May 30, 2024 2 :19pm Obstructive sleep apnea May 30 2:19pm Subarachnoid hemorrhage May 30 2:19pm Restless leg syndrome May 30, 2024 2:19pm Hypomagnesemia May 30, 2024 2 :19pm Neuropathic pain May 30, 2024 2 :19pm Urinary tract infection May 30 2:19pm Urine retention May 30, 2024 2 :19pm Afib May 30, 2024 2 :19pm Cerebral amyloid angiopathy June 6:43pm Debility June 30, 2024 6:43pm Essential (primary) hypertension uar y 2024 6:43pm Insomnia June 30, 2024 6:43pm Obstructive sleep apnea June 30, 025 6:43pm Osteoporosis June 30, 2024 6:43pm Subarachnoid hemorrhage June 30, 025 6:43pm Restless leg syndrome June 30 6:43pm Compression fracture of L2 June 6:43pm Compression fracture of L3 vertebra Febr uary 2024 6:43pm Hypomagnesemia June 30, 2024 6:43pm Multiple falls June 30, 2024 6:43pm Multiple rib fractures June 30 6:43pm Multiple transverse process fractures Fe bruary 2024 6:43pm Urine retention June 30, 2024 6:43pm Afib June 30, 2024 6:43pm Fracture of fifth metatarsal bone of rig ht foot June 30, 2024 6:43pm Dyspnea on exertion July 26, 2024 11: 15am Essential (primary) hypertension July 102024 11:15am Paroxysmal atrial fibrillation July 11:15am Aphasia August 30, 2024 2:0 1pm Altered level of consciousness August 2:05am Cerebral amyloid angiopathy September 01, 2024 2:05am 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 September 01, 2024 2:05am Hypertensive urgency September 01, 2024 2: 05am Obesity (BMI 30.0-34.9) September 01, 2024 2:05am NEL on CPAP September 01, 2024 2:0 5am Acute UTI October 04, 2024 12:39 am Adverse drug reaction October 04, 2024 12: 39am Fall October 04, 2024 12:39 am 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 October 04, 2024 12:39am Noncompliance October 04, 2024 12:39 am Toxic encephalopathy October 04, 2024 12:3 9am Chronic back pain October 04, 2024 12:39 am Chief Complaint Admit Date SAH May 30, 2024 2 :19pm Aphasia following nontraumatic subarachn oid hemorr June 14, 2024 10:02am fall June 26, 2024 12:26pm L1, L2 FRACTURE; MULTIPLE RIB FX, RIGHT June 30, 2024 6:43pm 6 M FU July 26, 2024 11: 15am CVA RULE OUT August 30, 2024 2:0 1pm CVA RULE OUT August 31, 2024 8:0 3am HYPERTENSIVE URGENCY & WORSENING CONFUSI ON September 01, 2024 2:05am HYPERTENSIVE URGENCY & WORSENING CONFUSI ON September 02, 2024 8:50am HYPERTENSIVE URGENCY & WORSENING CONFUSI ON September 03, 2024 12:09pm USP LAB WORK September 06, 2024 4 :00am pain October 01, 2024 3:21p m ACUTE TOXIC ENCEPHALOPATHY 2/2 ADR TO HY DROCODONE October 04, 2024 12:39am ACUTE TOXIC ENCEPHALOPATHY 2/2 ADR TO HY DROCODONE October 04, 2024 10:35am ACUTE TOXIC ENCEPHALOPATHY 2/2 ADR TO HY DROCODONE October 05, 2024 1:08pm ACUTE TOXIC ENCEPHALOPATHY 2/2 ADR TO HY DROCODONE October 06, 2024 1:54pm ACUTE TOXIC ENCEPHALOPATHY 2/2 ADR TO HY DROCODONE October 06, 2024 2:26pm ACUTE TOXIC ENCEPHALOPATHY 2/2 ADR TO HY DROCODONE October 07, 2024 10:38am ACUTE TOXIC ENCEPHALOPATHY 2/2 ADR TO HY DROCODONE October 08, 2024 11:52am ACUTE TOXIC ENCEPHALOPATHY 2/2 ADR TO HY DROCODONE October 09, 2024 9:57am Reason for Visit Admit Date Debility May 30, 2024 2 :19pm Essential (primary) hypertension May 30, 2024 2:19pm Hemorrhagic stroke May 30, 2024 2 :19pm Insomnia May 30, 2024 2 :19pm Obstructive sleep apnea May 30 2:19pm Subarachnoid hemorrhage May 30 2:19pm Restless leg syndrome May 30, 2024 2:19pm Hypomagnesemia May 30, 2024 2 :19pm Neuropathic pain May 30, 2024 2 :19pm Urinary tract infection May 30 2:19pm Urine retention May 30, 2024 2 :19pm Afib May 30, 2024 2 :19pm Cerebral amyloid angiopathy June 6:43pm Debility June 30, 2024 6:43pm Essential (primary) hypertension ua y 2024 6:43pm Insomnia June 30, 2024 6:43pm Obstructive sleep apnea June 30, 025 6:43pm Osteoporosis June 30, 2024 6:43pm Subarachnoid hemorrhage June 30, 025 6:43pm Restless leg syndrome June 30 6:43pm Compression fracture of L2 June 6:43pm Compression fracture of L3 vertebra Febr uary 2024 6:43pm Hypomagnesemia June 30, 2024 6:43pm Multiple falls June 30, 2024 6:43pm Multiple rib fractures June 30 6:43pm Multiple transverse process fractures Fe bruary 2024 6:43pm Urine retention June 30, 2024 6:43pm Afib June 30, 2024 6:43pm Fracture of fifth metatarsal bone of rig ht foot June 30, 2024 6:43pm Dyspnea on exertion July 26, 2024 11: 15am Essential (primary) hypertension July 102024 11:15am Paroxysmal atrial fibrillation July 11:15am Aphasia August 30, 2024 2:0 1pm Altered level of consciousness August 2:05am Cerebral amyloid angiopathy September 01, 2024 2:05am 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 September 01, 2024 2:05am Hypertensive urgency September 01, 2024 2: 05am Obesity (BMI 30.0-34.9) September 01, 2024 2:05am NEL on CPAP September 01, 2024 2:0 5am Adverse drug reaction October 06, 2024 2:2 6pm Fall October 06, 2024 2:26p m 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 October 06, 2024 2:26pm Noncompliance October 06, 2024 2:26p m Toxic encephalopathy October 06, 2024 2:26 pm Chronic back pain October 06, 2024 2:26p m Chief Complaint Admit Date SAH May 30, 2024 2 :19pm fall June 26, 2024 12:26pm L1, L2 FRACTURE; MULTIPLE RIB FX, RIGHT June 30, 2024 6:43pm 6 M FU July 26, 2024 11: 15am CVA RULE OUT August 30, 2024 2:0 1pm CVA RULE OUT August 31, 2024 8:0 3am HYPERTENSIVE URGENCY & WORSENING CONFUSI ON September 01, 2024 2:05am HYPERTENSIVE URGENCY & WORSENING CONFUSI ON September 02, 2024 8:50am HYPERTENSIVE URGENCY & WORSENING CONFUSI ON September 03, 2024 12:09pm USP LAB WORK September 06, 2024 4 :00am pain October 01, 2024 3:21p m ACUTE TOXIC ENCEPHALOPATHY 2/2 ADR TO HY DROCODONE October 04, 2024 12:39am ACUTE TOXIC ENCEPHALOPATHY 2/2 ADR TO HY DROCODONE October 04, 2024 10:35am ACUTE TOXIC ENCEPHALOPATHY 2/2 ADR TO HY DROCODONE October 05, 2024 1:08pm ACUTE TOXIC ENCEPHALOPATHY 2/2 ADR TO HY DROCODONE October 06, 2024 1:54pm ACUTE TOXIC ENCEPHALOPATHY 2/2 ADR TO HY DROCODONE October 06, 2024 2:26pm ACUTE TOXIC ENCEPHALOPATHY 2/2 ADR TO HY DROCODONE October 07, 2024 10:38am ACUTE TOXIC ENCEPHALOPATHY 2/2 ADR TO HY DROCODONE October 08, 2024 11:52am ACUTE TOXIC ENCEPHALOPATHY 2/2 ADR TO HY DROCODONE October 09, 2024 9:57am Chief Complaint Admit Date L1, L2 FRACTURE; MULTIPLE RIB FX, RIGHT 5TH June 30, 2024 6:43pm 6 M FU July 26, 2024 11: 15am CVA RULE OUT August 30, 2024 2:0 1pm CVA RULE OUT August 31, 2024 8:0 3am HYPERTENSIVE URGENCY & WORSENING CONFUSI ON September 01, 2024 2:05am HYPERTENSIVE URGENCY & WORSENING CONFUSI ON September 02, 2024 8:50am HYPERTENSIVE URGENCY & WORSENING CONFUSI ON September 03, 2024 12:09pm USP LAB WORK September 06, 2024 4 :00am Follow up September 06, 2024 4:2 6pm pain October 01, 2024 3:21p m ACUTE TOXIC ENCEPHALOPATHY 2/2 ADR TO HY DROCODONE October 04, 2024 12:39am ACUTE TOXIC ENCEPHALOPATHY 2/2 ADR TO HY DROCODONE October 04, 2024 10:35am ACUTE TOXIC ENCEPHALOPATHY 2/2 ADR TO HY DROCODONE October 05, 2024 1:08pm ACUTE TOXIC ENCEPHALOPATHY 2/2 ADR TO HY DROCODONE October 06, 2024 1:54pm ACUTE TOXIC ENCEPHALOPATHY 2/2 ADR TO HY DROCODONE October 06, 2024 2:26pm ACUTE TOXIC ENCEPHALOPATHY 2/2 ADR TO HY DROCODONE October 07, 2024 10:38am ACUTE TOXIC ENCEPHALOPATHY 2/2 ADR TO HY DROCODONE October 08, 2024 11:52am ACUTE TOXIC ENCEPHALOPATHY 2/2 ADR TO HY DROCODONE October 09, 2024 9:57am Reason for Visit Admit Date Cerebral amyloid angiopathy June 6:43pm Debility June 30, 2024 6:43pm Essential (primary) hypertension 2024 6:43pm Insomnia June 30, 2024 6:43pm Obstructive sleep apnea June 30, 025 6:43pm Osteoporosis June 30, 2024 6:43pm Subarachnoid hemorrhage June 30 2 025 6:43pm Restless leg syndrome June 30 6:43pm Compression fracture of L2 June 6:43pm Compression fracture of L3 vertebra Febr [id number] 6:43pm Hypomagnesemia June 30, 2024 6:43pm Multiple falls June 30, 2024 6:43pm Multiple rib fractures June 30 6:43pm Multiple transverse process fractures Fe bruary 2024 6:43pm Urine retention June 30, 2024 6:43pm Afib June 30, 2024 6:43pm Fracture of fifth metatarsal bone of rig ht foot June 30, 2024 6:43pm Dyspnea on exertion July 26, 2024 11: 15am Essential (primary) hypertension July [id number] 11:15am Paroxysmal atrial fibrillation July 11:15am Aphasia August 30, 2024 2:0 1pm Altered level of consciousness August 2:05am Cerebral amyloid angiopathy September 01, 2024 2:05am Hypertensive urgency September 01, 2024 2: 05am Obesity (BMI 30.0-34.9) September 01, 2024 2:05am NEL on CPAP September 01, 2024 2:0 5am 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 September 01, 2024 2:05am Adverse drug reaction October 06, 2024 2:2 6pm Fall October 06, 2024 2:26p m Noncompliance October 06, 2024 2:26p m Toxic encephalopathy October 06, 2024 2:26 pm Chronic back pain October 06, 2024 2:26p m 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 October 06, 2024 2:26pm Chief Complaint Admit Date L1, L2 FRACTURE; MULTIPLE RIB FX, RIGHT June 30, 2024 6:43pm 6 M FU July 26, 2024 11: 15am CVA RULE OUT August 30, 2024 2:0 1pm CVA RULE OUT August 31, 2024 8:0 3am HYPERTENSIVE URGENCY & WORSENING CONFUSI ON September 01, 2024 2:05am HYPERTENSIVE URGENCY & WORSENING CONFUSI ON September 02, 2024 8:50am HYPERTENSIVE URGENCY & WORSENING CONFUSI ON September 03, 2024 12:09pm USP LAB WORK September 06, 2024 4 :00am Follow up September 06, 2024 4:2 6pm Admission September 07, 2024 12: 26pm pain October 01, 2024 3:21p m ACUTE TOXIC ENCEPHALOPATHY 2/2 ADR TO HY DROCODONE October 04, 2024 12:39am ACUTE TOXIC ENCEPHALOPATHY 2/2 ADR TO HY DROCODONE October 04, 2024 10:35am ACUTE TOXIC ENCEPHALOPATHY 2/2 ADR TO HY DROCODONE October 05, 2024 1:08pm ACUTE TOXIC ENCEPHALOPATHY 2/2 ADR TO HY DROCODONE October 06, 2024 1:54pm ACUTE TOXIC ENCEPHALOPATHY 2/2 ADR TO HY DROCODONE October 06, 2024 2:26pm ACUTE TOXIC ENCEPHALOPATHY 2/2 ADR TO HY DROCODONE October 07, 2024 10:38am ACUTE TOXIC ENCEPHALOPATHY 2/2 ADR TO HY DROCODONE October 08, 2024 11:52am ACUTE TOXIC ENCEPHALOPATHY 2/2 ADR TO HY DROCODONE October 09, 2024 9:57am Chief Complaint Admit Date L1, L2 FRACTURE; MULTIPLE RIB FX, RIGHT June 30, 2024 6:43pm 6 M FU July 26, 2024 11: 15am CVA RULE OUT August 30, 2024 2:0 1pm CVA RULE OUT August 31, 2024 8:0 3am HYPERTENSIVE URGENCY & WORSENING CONFUSI ON September 01, 2024 2:05am HYPERTENSIVE URGENCY & WORSENING CONFUSI ON September 02, 2024 8:50am HYPERTENSIVE URGENCY & WORSENING CONFUSI ON September 03, 2024 12:09pm USP LAB WORK September 06, 2024 4 :00am Follow up September 06, 2024 4:2 6pm Admission September 07, 2024 12: 26pm pain October 01, 2024 3:21p m ACUTE TOXIC ENCEPHALOPATHY 2/2 ADR TO HY DROCODONE October 04, 2024 12:39am ACUTE TOXIC ENCEPHALOPATHY 2/2 ADR TO HY DROCODONE October 04, 2024 10:35am ACUTE TOXIC ENCEPHALOPATHY 2/2 ADR TO HY DROCODONE October 05, 2024 1:08pm ACUTE TOXIC ENCEPHALOPATHY 2/2 ADR TO HY DROCODONE October 06, 2024 1:54pm ACUTE TOXIC ENCEPHALOPATHY 2/2 ADR TO HY DROCODONE October 06, 2024 2:26pm ACUTE TOXIC ENCEPHALOPATHY 2/2 ADR TO HY DROCODONE October 07, 2024 10:38am ACUTE TOXIC ENCEPHALOPATHY 2/2 ADR TO HY DROCODONE October 08, 2024 11:52am ACUTE TOXIC ENCEPHALOPATHY 2/2 ADR TO HY DROCODONE October 09, 2024 9:57am chest pain November 17, 2024 12:55 pm Chief Complaint Admit Date L1, L2 FRACTURE; MULTIPLE RIB FX, RIGHT 5TH June 30, 2024 6:43pm 6 M FU July 26, 2024 11: 15am CVA RULE OUT August 30, 2024 2:0 1pm CVA RULE OUT August 31, 2024 8:0 3am HYPERTENSIVE URGENCY & WORSENING CONFUSI ON September 01, 2024 2:05am HYPERTENSIVE URGENCY & WORSENING CONFUSI ON September 02, 2024 8:50am HYPERTENSIVE URGENCY & WORSENING CONFUSI ON September 03, 2024 12:09pm USP LAB WORK September 06, 2024 4 :00am Follow up September 06, 2024 4:2 6pm Admission September 07, 2024 12: 26pm pain October 01, 2024 3:21p m ACUTE TOXIC ENCEPHALOPATHY 2/2 ADR TO HY DROCODONE October 04, 2024 12:39am ACUTE TOXIC ENCEPHALOPATHY 2/2 ADR TO HY DROCODONE October 04, 2024 10:35am ACUTE TOXIC ENCEPHALOPATHY 2/2 ADR TO HY DROCODONE October 05, 2024 1:08pm ACUTE TOXIC ENCEPHALOPATHY 2/2 ADR TO HY DROCODONE October 06, 2024 1:54pm ACUTE TOXIC ENCEPHALOPATHY 2/2 ADR TO HY DROCODONE October 06, 2024 2:26pm ACUTE TOXIC ENCEPHALOPATHY 2/2 ADR TO HY DROCODONE October 07, 2024 10:38am ACUTE TOXIC ENCEPHALOPATHY 2/2 ADR TO HY DROCODONE October 08, 2024 11:52am ACUTE TOXIC ENCEPHALOPATHY 2/2 ADR TO HY DROCODONE October 09, 2024 9:57am chest pain November 17, 2024 12:55 pm S/P H 11/17November 19, 2024 10:2 3am Reason for Visit Admit Date Cerebral amyloid angiopathy June 6:43pm Debility June 30, 2024 6:43pm Essential (primary) hypertension 2024 6:43pm Insomnia June 30, 2024 6:43pm Obstructive sleep apnea June 30, 2 025 6:43pm Osteoporosis June 30, 2024 6:43pm Subarachnoid hemorrhage June 30, 2 025 6:43pm Restless leg syndrome June 30 6:43pm Compression fracture of L2 June 6:43pm Compression fracture of L3 vertebra Febr uary 2024 6:43pm Hypomagnesemia June 30, 2024 6:43pm Multiple falls June 30, 2024 6:43pm Multiple rib fractures June 30 6:43pm Multiple transverse process fractures Fe bruary 2024 6:43pm Urine retention June 30, 2024 6:43pm Afib June 30, 2024 6:43pm Fracture of fifth metatarsal bone of rig ht foot June 30, 2024 6:43pm Dyspnea on exertion July 26, 2024 11: 15am Essential (primary) hypertension July 102024 11:15am Paroxysmal atrial fibrillation July 11:15am Aphasia August 30, 2024 2:0 1pm Altered level of consciousness August 2:05am Cerebral amyloid angiopathy September 01, 2024 2:05am Hypertensive urgency September 01, 2024 2: 05am Obesity (BMI 30.0-34.9) September 01, 2024 2:05am NEL on CPAP September 01, 2024 2:0 5am 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 September 01, 2024 2:05am Adverse drug reaction October 06, 2024 2:2 6pm Fall October 06, 2024 2:26p m Noncompliance October 06, 2024 2:26p m Toxic encephalopathy October 06, 2024 2:26 pm Chronic back pain October 06, 2024 2:26p m 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 October 06, 2024 2:26pm Dyspnea on exertion November 19, 2024 10:2 3am Essential (primary) hypertension November 192024 10:23am Paroxysmal atrial fibrillation November 10:23am Chief Complaint Admit Date CVA RULE OUT August 30, 2024 2:0 1pm CVA RULE OUT August 31, 2024 8:0 3am HYPERTENSIVE URGENCY & WORSENING CONFUSI ON September 01, 2024 2:05am HYPERTENSIVE URGENCY & WORSENING CONFUSI ON September 02, 2024 8:50am HYPERTENSIVE URGENCY & WORSENING CONFUSI ON September 03, 2024 12:09pm USP LAB WORK September 06, 2024 4 :00am Follow up September 06, 2024 4:2 6pm Admission September 07, 2024 12: 26pm pain October 01, 2024 3:21p m ACUTE TOXIC ENCEPHALOPATHY 2/2 ADR TO HY DROCODONE October 04, 2024 12:39am ACUTE TOXIC ENCEPHALOPATHY 2/2 ADR TO HY DROCODONE October 04, 2024 10:35am ACUTE TOXIC ENCEPHALOPATHY 2/2 ADR TO HY DROCODONE October 05, 2024 1:08pm ACUTE TOXIC ENCEPHALOPATHY 2/2 ADR TO HY DROCODONE October 06, 2024 1:54pm ACUTE TOXIC ENCEPHALOPATHY 2/2 ADR TO HY DROCODONE October 06, 2024 2:26pm ACUTE TOXIC ENCEPHALOPATHY 2/2 ADR TO HY DROCODONE October 07, 2024 10:38am ACUTE TOXIC ENCEPHALOPATHY 2/2 ADR TO HY DROCODONE October 08, 2024 11:52am ACUTE TOXIC ENCEPHALOPATHY 2/2 ADR TO HY DROCODONE October 09, 2024 9:57am chest pain November 17, 2024 12:55 pm S/P [facility] 11/17November 19, 2024 10:2 3am INT LAB ORDERS November 19, 2024 11:2 7am Reason for Visit Admit Date Aphasia August 30, 2024 2:0 1pm Altered level of consciousness August 2:05am Cerebral amyloid angiopathy September 01, 2024 2:05am Hypertensive urgency September 01, 2024 2: 05am Obesity (BMI 30.0-34.9) September 01, 2024 2:05am NEL on CPAP September 01, 2024 2:0 5am 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 September 01, 2024 2:05am Adverse drug reaction October 06, 2024 2:2 6pm Fall October 06, 2024 2:26p m Noncompliance October 06, 2024 2:26p m Toxic encephalopathy October 06, 2024 2:26 pm Chronic back pain October 06, 2024 2:26p m 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 October 06, 2024 2:26pm Dyspnea on exertion November 19, 2024 10:2 3am Essential (primary) hypertension November 192024 10:23am Paroxysmal atrial fibrillation November 10:23am Chest pressure November 19, 2024 10:2 3am Chief Complaint Admit Date CVA RULE OUT August 30, 2024 2:0 1pm CVA RULE OUT August 31, 2024 8:0 3am HYPERTENSIVE URGENCY & WORSENING CONFUSI ON September 01, 2024 2:05am HYPERTENSIVE URGENCY & WORSENING CONFUSI ON September 02, 2024 8:50am HYPERTENSIVE URGENCY & WORSENING CONFUSI ON September 03, 2024 12:09pm USP LAB WORK September 06, 2024 4 :00am Follow up September 06, 2024 4:2 6pm Admission September 07, 2024 12: 26pm pain October 01, 2024 3:21p m ACUTE TOXIC ENCEPHALOPATHY 2/2 ADR TO HY DROCODONE October 04, 2024 12:39am ACUTE TOXIC ENCEPHALOPATHY 2/2 ADR TO HY DROCODONE October 04, 2024 10:35am ACUTE TOXIC ENCEPHALOPATHY 2/2 ADR TO HY DROCODONE October 05, 2024 1:08pm ACUTE TOXIC ENCEPHALOPATHY 2/2 ADR TO HY DROCODONE October 06, 2024 1:54pm ACUTE TOXIC ENCEPHALOPATHY 2/2 ADR TO HY DROCODONE October 06, 2024 2:26pm ACUTE TOXIC ENCEPHALOPATHY 2/2 ADR TO HY DROCODONE October 07, 2024 10:38am ACUTE TOXIC ENCEPHALOPATHY 2/2 ADR TO HY DROCODONE October 08, 2024 11:52am ACUTE TOXIC ENCEPHALOPATHY 2/2 ADR TO HY DROCODONE October 09, 2024 9:57am chest pain November 17, 2024 12:55 pm S/P [facility] 11/17November 19, 2024 10:2 3am INT LAB ORDERS November 19, 2024 11:2 7am 4 W FU December 17, 2024 2:2 0pm Reason for Visit Admit Date Aphasia August 30, 2024 2:0 1pm Altered level of consciousness August 2:05am Cerebral amyloid angiopathy September 01, 2024 2:05am Hypertensive urgency September 01, 2024 2: 05am Obesity (BMI 30.0-34.9) September 01, 2024 2:05am NEL on CPAP September 01, 2024 2:0 5am 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 September 01, 2024 2:05am Adverse drug reaction October 06, 2024 2:2 6pm Fall October 06, 2024 2:26p m Noncompliance October 06, 2024 2:26p m Toxic encephalopathy October 06, 2024 2:26 pm Chronic back pain October 06, 2024 2:26p m 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 October 06, 2024 2:26pm Dyspnea on exertion November 19, 2024 10:2 3am Essential (primary) hypertension November 192024 10:23am Paroxysmal atrial fibrillation November 10:23am Chest pressure November 19, 2024 10:2 3am Dyspnea on exertion December 17, 2024 2:2 0pm Essential (primary) hypertension December 17, 2024 2:20pm Paroxysmal atrial fibrillation December 2:20pm Chest pressure December 17, 2024 2:2 0pm Family History No Family History Records Found Relationship Condition Age at Onset Recorded Date/T darlene Not Specified Diabetes mellitus Unknown Cardiac disease Unknown Malignant neoplasm Unknown Advance Directives No Advanced Directives Records Found Advance Directive Response Recorded Date/ Time Advance Directives Yes September 07, 016 2:12pm Living Will Yes July 24, 2021 8:58am Power of Production Analyst Yes July 24 8:58am Advance Directive Response Recorded Date/ Time Name of Medical Power of Production Analyst daughter Martha and grandisa Mercado July 24, 2021 8:58am Advance Directives Yes October 04 1:23pm Living Will Yes October 04, 2021 1 :23pm Power of Production Analyst Yes October 04, 2021 1:23pm Advance Directive Response Recorded Date/ Time Advance Directives Yes October 04 1:23pm Living Will Yes October 04, 2021 1 :23pm Power of Production Analyst Yes October 04, 2021 1:23pm Advance Directive Response Recorded Date/ Time Advance Directives Yes October 04 1:23pm Living Will No February 09 5:05pm Power of Production Analyst No February 09 5:05pm Advance Directive Response Recorded Date/ Time Name of Medical Power of Production Analyst Rogelio Herrmann February 09, 2022 10:05pm Advance Directives Yes October 04 1:23pm Living Will Yes February 09 10:05pm Power of Production Analyst Yes February 09 10:05pm Advance Directive Response Recorded Date/ Time Name of Medical Power of Production Analyst Rogelio Herrmann February 09, 2022 10:05pm Name of Medical Power of Production Analyst Martha Hdz, daughter February 12, 2022 10:23am Advance Directives Yes October 04 1:23pm Living Will Yes February 12 10:23am Power of Production Analyst Yes February 12 10:23am Advance Directive Response Recorded Date/ Time Name of Medical Power of Production Analyst Rogelio Herrmann February 09, 2022 10:05pm Name of Medical Power of Production Analyst Martha Hdz, daughter February 12, 2022 10:23am Name of Medical Power of Production Analyst Martha Hdz, daughter February 18, 2022 9:35am Advance Directives Yes October 04 1:23pm Living Will Yes February 18 9:35am Power of Production Analyst Yes February 18, 2022 9:35am Advance Directive Response Recorded Date/ Time Name of Medical Power of Production Analyst Rogelio Herrmann February 09, 2022 9:05pm Name of Medical Power of Production Analyst Martha Hdz, daughter February 12, 2022 9:23am Name of Medical Power of Production Analyst Martha Hdz, daughter February 18, 2022 8:35am Advance Directives Yes October 04 12:23pm Living Will Yes February 18 8:35am Power of Production Analyst Yes February 18, 2022 8:35am Advance Directive Response Recorded Date/ Time Name of Medical Power of Production Analyst Rogelio Herrmann February 09, 2022 9:05pm Name of Medical Power of Production Analyst Martha Hdz, daughter February 12, 2022 9:23am Name of Medical Power of Production Analyst Martha Hdz, daughter February 18, 2022 8:35am Name of Medical Power of Production Analyst svetlana gotti-son April 10, 2022 6:40pm Advance Directives Yes October 04 12:23pm Living Will Yes April 10, 022 6:40pm Power of Production Analyst Yes April 10, 2022 6:40pm Advance Directive Response Recorded Date/ Time Name of Medical Power of Production Analyst Rogelio Herrmann February 09, 2022 9:05pm Name of Medical Power of Production Analyst Martha Hdz, daughter February 12, 2022 9:23am Name of Medical Power of Production Analyst Martha Hdz, daughter February 18, 2022 8:35am Name of Medical Power of Production Analyst martha yung - daughter April 10, 2022 10:43pm Advance Directives Yes October 04 12:23pm Living Will Yes April 10, 10:43pm Power of Production Analyst Yes April 10, 2022 10:43pm Advance Directive Response Recorded Date/ Time Name of Medical Power of Production Analyst Rogelio Herrmann February 09, 2022 9:05pm Name of Medical Power of Production Analyst Martha Hdz, daughter February 12, 2022 9:23am Name of Medical Power of Production Analyst Martha Hdz, daughter February 18, 2022 8:35am Name of Medical Power of Production Analyst martha yung - daughter April 10, 2022 10:43pm Advance Directives Yes October 04 12:23pm Living Will No May 18 3 4:38pm Power of Production Analyst No May 18 023 4:38pm Advance Directive Response Recorded Date/ Time Advance Directives Yes October 04 2 1:23pm Living Will No May 18 3 5:38pm Power of Production Analyst No May 18, 023 5:38pm Advance Directive Response Recorded Date/ Time Advance Directives Yes October 04 2 12:23pm Living Will No May 18 3 4:38pm Power of Production Analyst No May 18 023 4:38pm Advance Directive Response Recorded Date/ Time Name of Medical Power of Production Analyst martha hdz / daughter May 12, 2023 7:36am Advance Directives Yes October 04 12:23pm Living Will Yes May 12 7:36am Power of Production Analyst Yes May 12 7:36am Advance Directive Response Recorded Date/ Time Advance Directives Yes October 04 1:23pm Living Will Yes May 12 8:36am Power of Production Analyst Yes May 12 8:36am Name of Medical Power of Production Analyst martha hdz / daughter May 12, 2023 8:36am Advance Directive Response Recorded Date/ Time Advance Directives Yes October 04 1:23pm Living Will Yes May 12 8:36am Power of Production Analyst Yes May 12 8:36am Date Activated Date Inactivated Comments 05/12/2024 7:20 AM 05/16/2024 5:46 PM Question Answer Comments Full Code Order Discussed With: Patient Date Activated Date Inactivated Comments 06/27/2024 3:42 AM Question Answer Comments DNR Order Discussed With: Patient Date Activated Date Inactivated Comments 05/12/2024 7:20 AM 05/16/2024 5:46 PM Question Answer Comments Full Code Order Discussed With: Patient Advance Directive Response Recorded Date/ Time Living Will Yes November 03, 2023 6:47pm Power of Production Analyst Yes November 02 6:47pm Living Will Yes May 11 12:52pm Power of Production Analyst Yes May 11, 2024 12:52pm Name of Medical Power of Production Analyst martha May 11, 2024 12:52pm Living Will Yes May 18 10:49am Power of Production Analyst Yes May 18 10:49am Name of Medical Power of Production Analyst Martha Hdz, daughter May 18, 2024 10:49am Living Will Yes May 31 4:39pm Power of Production Analyst Yes May 31, 2024 4:39pm Name of Medical Power of Production Analyst Martha Hdz, daughter May 31, 2024 4:39pm Living Will Yes July 01 5:00pm Power of Production Analyst Yes July 01, 2024 5:00pm Name of Medical Power of Production Analyst Martha Hdz, daughter July 01, 2024 5:00pm Living Will No June 26 1:31pm Power of Production Analyst No June 26, 2024 1:31pm Advance Directives Yes October 04 1:23pm Advance Directive Response Recorded Date/ Time Living Will Yes November 03, 2023 6:47pm Do you have a Healthcare Pow er of Production Analyst? Yes November 03, 2023 6:47pm Living Will Yes May 11 12:52pm Do you have a Healthcare Pow er of Production Analyst? Yes May 11, 2024 12:52pm Name of Medical Power of Production Analyst martha May 11, 2024 12:52pm Living Will Yes May 18 10:49am Do you have a Healthcare Pow er of Production Analyst? Yes May 18, 2024 10:49am Name of Medical Power of Production Analyst Martha Hdz, daughter May 18, 2024 10:49am Living Will Yes May 31 4:39pm Do you have a Healthcare Pow er of Production Analyst? Yes May 31, 2024 4:39pm Name of Medical Power of Production Analyst Martha Hdz, daughter May 31, 2024 4:39pm Living Will Yes July 01 5:00pm Do you have a Healthcare Pow er of Production Analyst? Yes July 01, 2024 5:00pm Name of Medical Power of Production Analyst Martha Hdz, daughter July 01, 2024 5:00pm Living Will Yes August 30, 2024 10:27am Do you have a Healthcare Pow er of Production Analyst? Yes August 30, 2024 10:27am Name of Medical Power of Production Analyst ASHLEY THOMAS August 30, 2024 10:27am Living Will No June 26 1:31pm Do you have a Healthcare Pow er of Production Analyst? No June 26, 2024 1:31pm Advance Directives Yes October 04 1:23pm Advance Directive Response Recorded Date/ Time Living Will Yes November 03, 2023 6:47pm Do you have a Healthcare Pow er of Production Analyst? Yes November 03, 2023 6:47pm Living Will Yes May 31 4:39pm Do you have a Healthcare Pow er of Production Analyst? Yes May 31, 2024 4:39pm Name of Medical Power of Production Analyst Martha Hdz, daughter May 31, 2024 4:39pm Living Will Yes July 01 5:00pm Do you have a Healthcare Pow er of Production Analyst? Yes July 01, 2024 5:00pm Name of Medical Power of Production Analyst Martha Hdz, daughter July 01, 2024 5:00pm Living Will Yes August 30, 2024 2:42pm Do you have a Healthcare Pow er of Production Analyst? Yes August 30, 2024 2:42pm Name of Medical Power of Production Analyst DAUGHTER MARTHA August 30, 2024 2:42pm Do you have a Healthcare Pow er of Production Analyst? Yes September 01, 2024 3:03am Do you have a Healthcare Pow er of Production Analyst? Yes October 01, 2024 4:22pm Living Will No June 26 025 1:31pm Do you have a Healthcare Pow er of Production Analyst? No June 26, 2024 1:31pm Do you have a Healthcare Pow er of Production Analyst? Yes October 03, 2024 7:05pm Advance Directives Yes October 04 1:23pm Advance Directive Response Recorded Date/ Time Living Will Yes November 03, 2023 6:47pm Do you have a Healthcare Pow er of Production Analyst? Yes November 03, 2023 6:47pm Living Will Yes May 31 4:39pm Do you have a Healthcare Pow er of Production Analyst? Yes May 31, 2024 4:39pm Name of Medical Power of Production Analyst Martha Hdz, daughter May 31, 2024 4:39pm Living Will Yes July 01 025 5:00pm Do you have a Healthcare Pow er of Production Analyst? Yes July 01, 2024 5:00pm Name of Medical Power of Production Analyst Martha Hdz, daughter July 01, 2024 5:00pm Living Will Yes August 30, 2024 2:42pm Do you have a Healthcare Pow er of Production Analyst? Yes August 30, 2024 2:42pm Name of Medical Power of Production Analyst DAUGHTER MARTHA August 30, 2024 2:42pm Do you have a Healthcare Pow er of Production Analyst? Yes September 01, 2024 3:03am Do you have a Healthcare Pow er of Production Analyst? Yes October 01, 2024 4:22pm Living Will No June 26 025 1:31pm Do you have a Healthcare Pow er of Production Analyst? No June 26, 2024 1:31pm Do you have a Healthcare Pow er of Production Analyst? Yes October 04, 2024 2:54am Advance Directives Yes October 04 1:23pm Date Activated Date Inactivated Comments 05/12/2024 7:20 AM Question Answer Comments Full Code Order Discussed With: Patient Advance Directive Response Recorded Date/ Time Living Will Yes November 03, 2023 6:47pm Do you have a Healthcare Pow er of Production Analyst? Yes November 03, 2023 6:47pm Living Will Yes July 01 025 5:00pm Do you have a Healthcare Pow er of Production Analyst? Yes July 01, 2024 5:00pm Name of Medical Power of Production Analyst Martha Hdz, daughter July 01, 2024 5:00pm Living Will Yes August 30, 2024 2:42pm Do you have a Healthcare Pow er of Production Analyst? Yes August 30, 2024 2:42pm Name of Medical Power of Production Analyst DAUGHTER MARTHA August 30, 2024 2:42pm Do you have a Healthcare Pow er of Production Analyst? Yes September 01, 2024 3:03am Do you have a Healthcare Pow er of Production Analyst? Yes October 01, 2024 4:22pm Do you have a Healthcare Pow er of Production Analyst? Yes October 04, 2024 2:54am Advance Directives Yes October 04 1:23pm Advance Directive Response Recorded Date/ Time Living Will Yes November 03, 2023 6:47pm Do you have a Healthcare Pow er of Production Analyst? Yes November 03, 2023 6:47pm Living Will Yes July 01 025 5:00pm Do you have a Healthcare Pow er of Production Analyst? Yes July 01, 2024 5:00pm Name of Medical Power of Production Analyst Martha Hdz, daughter July 01, 2024 5:00pm Living Will Yes August 30, 2024 2:42pm Do you have a Healthcare Pow er of Production Analyst? Yes August 30, 2024 2:42pm Name of Medical Power of Production Analyst ASHLEY THOMAS August 30, 2024 2:42pm Do you have a Healthcare Pow er of Production Analyst? Yes September 01, 2024 3:03am Do you have a Healthcare Pow er of Production Analyst? Yes October 01, 2024 4:22pm Do you have a Healthcare Pow er of Production Analyst? Yes October 04, 2024 2:54am Do you have a Healthcare Pow er of Production Analyst? Yes November 17, 2024 1:02pm Name of Medical Power of Production Analyst Martha Borges November 17, 2024 1:02pm Advance Directives Yes October 04 1:23pm Advance Directive Response Recorded Date/ Time Living Will Yes August 30, 2024 2:42pm Do you have a Healthcare Pow er of Production Analyst? Yes August 30, 2024 2:42pm Name of Medical Power of Production Analyst DAUGHTER BONITA DRAPER August 30, 2024 2:42pm Do you have a Healthcare Pow er of Production Analyst? Yes September 01, 2024 3:03am Do you have a Healthcare Pow er of Production Analyst? Yes October 01, 2024 4:22pm Do you have a Healthcare Pow er of Production Analyst? Yes October 04, 2024 2:54am Do you have a Healthcare Pow er of Production Analyst? Yes November 17, 2024 1:02pm Name of Medical Power of Production Analyst Martha schneider November 17, 2024 1:02pm Advance Directives Yes October 04 1:23pm Summary Purpose Reason for Referral Specialty Diagnoses / Procedures Referred By Nelson kwan Referred To Contact CT IMAGING Diagnoses SAH (subarachnoid hemorrhage) (HCC) Procedures CT BRAIN WO IVCON CT HEAD/BRAIN W/O CONTRAST MATERIAL Faby Orozco, [employer]MER.PERSONAL INJURY SPECIALIST [id number] Imaging [id number] Referral ID Status Reason Start Date Expiration Date Visits Requested Visits Authorized [id number] New Request Auto-Generat ed Referral 06/13/2024 06/12/2025 1 1 Additional Source Comments Goals (unrecognized section and content) Goals may be documented in a n alternate sectionGoals may be documented in an alternate sectionGoals may be documented in an alternate sectionGoals may be documented in an alternate sectionGoals may be documented in an alternate sectionGoals may be documented in an alternate sectionGoals may be documented in an alternate sectionGoals may be documented in an alternate sectionGoals may be documented in an alternate sectionGoals may be documented in an alternate sectionGoals may be documented in an alternate sectionGoals may be documented in an alternate sectionGoals may be documented in an alternate sectionGoals may be documented in an alternate sectionGoals may be documented in an alternate sectionGoals may be documented in an alternate sectionGoals may be documented in an alternate sectionGoals may be documented in an alternate sectionGoals may be documented in an alternate sectionGoals may be documented in an alternate sectionGoals may be documented in an alternate section Care Teams (unrecognized sec tion and content) Team Status: Active Member Role Status Dates Dr. Doyle Swenson MD Family Provider Active Dr. Doyle Swenson MD Primary Care Provider Activ e Team Status: Active Member Role Status Dates Dr. Doyle Swenson MD Primary Care Provider Activ e Dr. Tylor Hendrickson , DO Emergency Provider Active Dr. Richy Ferguson MD Admit Provider, Attending Provider, Other Provider Active Team Status: Active Member Role Status Dates Dr. Doyle Swenson MD Primary Care Provider Activ e Dr. Tylor Hendrickson , DO Emergency Provider Active Dr. Richy Ferguson MD Admit Provider, Other Provide r Active Dr. Nichole Abarca , DO Attending Provider, Other Pro vider Active Team Status: Active Member Role Status Dates Dr. Doyle Swenson MD Primary Care Provider Activ e Dr. Tylor Hendrickson , DO Emergency Provider Active Dr. Richy Ferguson MD Admit Provider, Other Provide r Active Dr. Juan José Evans MD Attending Provider, Other Provid er Active Dr. Nichole Abarca , DO Other Provider Active Team Status: Active Member Role Status Dates Dr. Doyle Swenson MD Primary Care Provider Activ e Dr. Tylor Fang MD Attending Provider Active Dr. Aleks Marshall MD Referring Provider Active Team Status: Active Member Role Status Dates Dr. Doyle Swenson MD Primary Care Provider Activ e Dr. Diana Snow , DO Emergency Provider Active Dr. Richy Ferguson MD Admit Provider, Attending Provider, Other Provider Active Team Status: Active Member Role Status Dates Dr. Doyle Swenson MD Primary Care Provider Activ e Dr. Diana Snow , DO Emergency Provider Active Dr. Richy Ferguson MD Admit Provider, Other Provide r Active Dr. Fely Jimenez MD Attending Provider, Other Prov ider Active Dr. Vito Hunter MD Other Provider Active Team Status: Active Member Role Status Dates Dr. Doyle Swenson MD Primary Care Provider Activ e Dr. Diana Snow , Emergency Provider Active Dr. Richy Ferguson MD Admit Provider, Other Provide r Active Dr. Vito Hunter MD Other Provider Active Dr. Hood Maza MD Attending Provider, Other Provider Active Dr. Fely Jimenez MD Other Provider Active Team Status: Inactive Member Role Status Dates Dr. Doyle Swenson MD Primary Care Provider Activ e Richa Arrieta MANAGER PHP, MANAGER PHP-C Attending Provider Active Team Status: Inactive Member Role Status Dates Dr. Doyle Swenson MD Primary Care Provider Activ e Dr. Jaiden Worthington MD Attending Provider, Referring Pr ovider Active Team Status: Inactive Member Role Status Dates Dr. Doyle Swenson MD Primary Care Provider Activ e Dr. Tylor Hendrickson , Emergency Provider Active Dr. Richy Ferguson MD Admit Provider, Other Provide r Active Dr. Juan José Evans MD Attending Provider Active Dr. Nichole Abarca , Other Provider Active Team Status: Inactive Member Role Status Dates Dr. Doyle Swenson MD Primary Care Provider Activ e Dr. Aleks Marshall MD Admit Provider, Attending Provid er Active Team Status: Inactive Member Role Status Dates Dr. Doyle Swenson MD Primary Care Provider Activ e Dr. Vito Hunter MD Attending Provider, Referring Provider Active Team Status: Inactive Member Role Status Dates Dr. Doyle Swenson MD Primary Care Provider Activ e Dr. Aleks Marshall MD Attending Provider, Referring Pr ovider Active Team Status: Inactive Member Role Status Dates Dr. Doyle Swenson MD Primary Care Provider, Attending Provider, Referring Provider Active Team Status: Inactive Member Role Status Dates Dr. Doyle Swenson MD Primary Care Provider Activ e Dr. Diana Snow , Emergency Provider Active Dr. Richy Ferguson MD Admit Provider, Other Provide r Active Dr. Vito Hunter MD Other Provider Active Dr. Hood Maza MD Attending Provider Active Dr. Fely Jimenez MD Other Provider Active Team Status: Inactive Member Role Status Dates Dr. Doyle Swenson MD Primary Care Provider Activ e Zackary Lyon MD Attending Provider Active Team Status: Active Member Role Status Dates Dr. Doyle Swenson MD Primary Care Provider Activ e Zackary Lyon MD Attending Provider Active Team Status: Inactive Member Role Status Dr. Doyle Swenson MD Primary Care Provider Activ e Dr. Juan Antonio Chaudhary MD Attending Provider, Emergency Pro vider Active Team Status: Active Member Role Status Dates Dr. Doyle Swenson MD Primary Care Provider Activ Loraine GUTIERREZ MD Attending Provider Active Team Status: Inactive Member Role Status Dates Dr. Doyle Swenson MD Primary Care Provider Activ e Murtaza Charles MD Attending Provider Active Team Status: Inactive Member Role Status Dates Dr. Doyle Swenson MD Primary Care Provider Activ e Tianna Ferrell MANAGER PHP-C Attending Provider Active Team Status: Inactive Member Role Status Dr. Doyle Swenson MD Primary Care Provider, Atte nding Provider Active Team Status: Active Member Role Status Dates Dr. Doyle Swenson MD Primary Care Provider Activ e Dr. Evin Mora MD Attending Provider Active Team Status: Active Member Role Status Dates Dr. Doyle Swenson MD Primary Care Provider Activ salvador Charles MD Attending Provider, Referring Provide r Active Team Status: Inactive Member Role Status Dr. Doyle Swenson MD Primary Care Provider Activ e Murtaza Charles MD Attending Provider, Referring Provide r Active Team Status: Inactive Member Role Status Dr. Doyle Swenson MD Primary Care Provider, Refe rring Provider Active Dr. Evin Mora MD Attending Provider Active Team Status: Inactive Member Role Status Dates Dr. Doyle Swenson MD Primary Care Provider Activ e Dr. Juan Jose Thomas MD Attending Provider, Referrin g Provider Active Team Status: Inactive Member Role Status Dates Dr. Doyle Swenson MD Primary Care Provider Activ e Dr. Duglas Shields MD Emergency Provider Active Team Status: Inactive Member Role Status Dates Dr. Doyle Swenson MD Primary Care Provider Activ e Dr. Duglas Shields MD Attending Provider, Emergency Provider Active Team Status: Active Member Role Status Dates Dr. Doyle Swenson MD Primary Care Provider, Atte nding Provider Active Team Status: Active Member Role Status Dates Dr. Doyle Swenson MD Primary Care Provider, Attending Provider, Referring Provider Active Team Status: Active Member Role Status Dates Dr. Bridget Swenson MD Family Provider Active Dr. Bridget Swenson MD Primary Care Provider Acti ve Team Status: Inactive Member Role Status Dates Dr. Bridget Swenson MD Primary Care Provider Acti ve Dr. Duglas Shields MD Attending Provider, Emergency Provider Active Team Status: Inactive Member Role Status Dates Dr. Bridget Swenson MD Primary Care Provider, Att ending Provider Active Team Status: Inactive Member Role Status Dates Dr. Bridget Swenson MD Primary Care Provider, Attending Provider, Referring Provider Active Team Status: Active Member Role Status Dates Dr. Bridget Swenson MD Primary Care Provider Acti ve Dr. Tylor Fang MD Attending Provider Active Team Status: Inactive Member Role Status Dates Dr. Bridget Swenson MD Primary Care Provider Acti ve MANAGER PHP. [employer] Attending Provider, Referring Provid er Active Business And Financial Counsel Relationship Specialty Start Date End Date Bridget Swenson MD [address] [id number] PCP - General Family Medicine 05/14/24 Cari Wong MD, PhD [address] [place] [address] [facility] 05/19/24 Business And Financial Counsel Relationship Specialty Start Date End Date Bridget Swenson MD [address] [place] [address] PCP - General Family Medicine 05/14/24 Cari Wong MD, PhD [address] [place] [address] [facility] 05/19/24 Business And Financial Counsel Relationship Specialty Start Date End Date Bridget Swenson MD [address] [place] [address] PCP - General Family Medicine 05/14/24 Cari Wong MD, PhD [address] [place] [address] [facility] 05/19/24 Business And Financial Counsel Relationship Specialty Start Date End Date Bridget Swenson MD [address] [place] [id number] PCP - General Family Medicine 05/14/24 Cari Wong MD, PhD [address] [place] [address] [facility] 05/19/24 Team Status: Active Member Role Status Dates Dr. Bridget Swenson MD Primary Care Provider Acti ve Team Status: Inactive Member Role Status Dates Dr. Bridget Swenson MD Primary Care Provider Acti ve Start: April 01, 2024 End: April 01, 2024 Dr. Vinayak Mendenhall MD Attending Provider Active Start: April 01, 2024 End: April 01, 2024 Dr. Vinayak Mendenhall MD Referring Provider Active Start: April 01, 2024 End: April 01, 2024 Team Status: Active Member Role Status Dates Dr. Brdiget Swenson MD Primary Care Provider Acti ve Start: April 01, 2024 Dr. Tylor Fang MD Attending Provider Active S tart: April 01, 2024 Dr. Vinayak Mendenhall MD Referring Provider Active Start: April 01, 2024 Team Status: Inactive Member Role Status Dates Dr. Bridget Swenson MD Primary Care Provider Acti ve Start: April 14, 2024 End: April 14, 2024 Dr. Bridget Swenson MD Attending Provider Active Start: April 14, 2024 End: April 14, 2024 Dr. Bridget Swenson MD Referring Provider Active Start: April 14, 2024 End: April 14, 2024 Team Status: Inactive Member Role Status Dates Dr. Bridget Swenson MD Primary Care Provider Acti ve Start: May 11, 2024 End: May 11, 2024 Dr. Tylor Hendrickson DO Attending Provider Active Start: May 11, 2024 End: May 11, 2024 Dr. Tyolr Hendrickson DO Emergency Provider Active Start: May 11, 2024 End: May 11, 2024 Team Status: Inactive Member Role Status Dates Dr. Bridget Swenson MD Primary Care Provider Acti ve Start: May 16, 2024 End: May 30, 2024 Dr. Aleks Marshall MD Admit Provider Active Star t: May 16, 2024 End: May 30, 2024 Dr. Aleks Marshall MD Other Provider Active Star t: May 16, 2024 End: May 30, 2024 Dr. Joyce Rousseau DO Attending Provider Active Start: May 16, 2024 End: May 30, 2024 Team Status: Active Member Role Status Dates Dr. Bridget Swenson MD Primary Care Provider Acti ve Start: May 18, 2024 Dr. Aleks Marshall MD Admit Provider Active Star t: May 18, 2024 Dr. Aleks Marshall MD Other Provider Active Star t: May 18, 2024 Dr. Joyce Rousseau DO Attending Provider Act hemant Start: May 18, 2024 Team Status: Active Member Role Status Dates Dr. Bridget Swenson MD Primary Care Provider Acti ve Start: May 19, 2024 Dr. Aleks Marshall MD Admit Provider Active Star t: May 19, 2024 Dr. Aleks Marshall MD Other Provider Active Star t: May 19, 2024 Dr. Joyce Rousseau DO Attending Provider Act hemant Start: May 19, 2024 Team Status: Active Member Role Status Dates Dr. Bridget Swenson MD Primary Care Provider Acti ve Start: May 20, 2024 Dr. Aleks Marshall MD Admit Provider Active Star t: May 20, 2024 Dr. Aleks Marshall MD Other Provider Active Star t: May 20, 2024 Dr. Joyce Rousseau DO Attending Provider Act hemant Start: May 20, 2024 Team Status: Active Member Role Status Dates Dr. Bridget Swenson MD Primary Care Provider Acti ve Start: May 21, 2024 Dr. Aleks Marshall MD Admit Provider Active Star t: May 21, 2024 Dr. Aleks Marshall MD Other Provider Active Star t: May 21, 2024 Dr. Joyce Rousseau DO Attending Provider Active Start: May 21, 2024 Dr. Joyce Rousseau DO Other Provider Active Start: May 21, 2024 Team Status: Active Member Role Status Dates Dr. Bridget Swenson MD Primary Care Provider Acti ve Start: May 24, 2024 Dr. Aleks Marshall MD Admit Provider Active Star t: May 24, 2024 Dr. Aleks Marshall MD Other Provider Active Star t: May 24, 2024 Dr. Joyce Rousseau DO Attending Provider Active Start: May 24, 2024 Dr. Joyce Rousseau DO Other Provider Active Start: May 24, 2024 Team Status: Active Member Role Status Dates Dr. Bridget Swenson MD Primary Care Provider Acti ve Start: May 25, 2024 Dr. Aleks Marshall MD Admit Provider Active Star t: May 25, 2024 Dr. Aleks Marshall MD Other Provider Active Star t: May 25, 2024 Dr. Joyce Rousseau DO Attending Provider Active Start: May 25, 2024 Dr. Joyce Rousseau DO Other Provider Active Start: May 25, 2024 Team Status: Active Member Role Status Dates Dr. Bridget Swenson MD Primary Care Provider Acti ve Start: May 27, 2024 Dr. Aleks Marshall MD Admit Provider Active Star t: May 27, 2024 Dr. Aleks Marshall MD Other Provider Active Star t: May 27, 2024 Dr. Joyce Rousseau DO Attending Provider Active Start: May 27, 2024 Dr. Joyce Rousseau DO Other Provider Active Start: May 27, 2024 Team Status: Active Member Role Status Dates Dr. Bridget Swenson MD Primary Care Provider Acti ve Start: May 28, 2024 Dr. Aleks Marshall MD Admit Provider Active Star t: May 28, 2024 Dr. Aleks Marshall MD Other Provider Active Star t: May 28, 2024 Dr. Joyce Rousseau DO Attending Provider Active Start: May 28, 2024 Dr. Joyce Rousseau DO Other Provider Active Start: May 28, 2024 Team Status: Inactive Member Role Status Dates Dr. Bridget Swenson MD Primary Care Provider Acti ve Start: May 30, 2024 End: June 15, 2024 Dr. Aleks Marshall MD Admit Provider Active Star t: May 30, 2024 End: June 15, 2024 Dr. Aleks Marshall MD Attending Provider Active Start: May 30, 2024 End: June 15, 2024 Team Status: Inactive Member Role Status Dates Dr. Bridget Swenson MD Primary Care Provider Acti ve Start: May 31, 2024 End: May 31, 2024 Dr. Aleks Marshall MD Attending Provider Active Start: May 31, 2024 End: May 31, 2024 Dr. Aleks Marshall MD Referring Provider Active Start: May 31, 2024 End: May 31, 2024 Team Status: Active Member Role Status Dates Dr. Bridget Swenson MD Primary Care Provider Acti ve Start: May 31, 2024 Dr. Tylor Fang MD Attending Provider Active S tart: May 31, 2024 Dr. Aleks Marshall MD Referring Provider Active Start: May 31, 2024 Team Status: Active Member Role Status Dates Dr. Bridget Swenson MD Primary Care Provider Acti ve Start: May 31, 2024 Dr. Aleks Marshall MD Admit Provider Active Star t: May 31, 2024 Dr. Aleks Marshall MD Other Provider Active Star t: May 31, 2024 Dr. Joyce Rousseau DO Attending Provider Active Start: May 31, 2024 Dr. Joyce Rousseau DO Other Provider Active Start: May 31, 2024 Team Status: Inactive Member Role Status Dates Dr. Bridget Swenson MD Primary Care Provider Acti ve Start: June 03, 2024 End: June 03, 2024 Dr. Aleks Marshall MD Attending Provider Active Start: June 03, 2024 End: June 03, 2024 Dr. Aleks Marshall MD Referring Provider Active Start: June 03, 2024 End: June 03, 2024 Team Status: Inactive Member Role Status Dates Dr. Bridget Swenson MD Primary Care Provider Acti ve Start: June 14, 2024 End: June 14, 2024 Dr. Aleks Marshall MD Attending Provider Active Start: June 14, 2024 End: June 14, 2024 Dr. Aleks Marshall MD Referring Provider Active Start: June 14, 2024 End: June 14, 2024 Team Status: Inactive Member Role Status Dates Dr. Bridget Swenson MD Primary Care Provider Acti ve Start: June 21, 2024 End: June 21, 2024 Dr. Bridget Swenson MD Attending Provider Active Start: June 21, 2024 End: June 21, 2024 Dr. Bridget Swenson MD Referring Provider Active Start: June 21, 2024 End: June 21, 2024 Team Status: Inactive Member Role Status Dates Dr. Bridget Swenson MD Primary Care Provider Acti ve Start: June 26, 2024 End: June 26, 2024 Dr. Horace Horta DO Attending Provider Active S tart: June 26, 2024 End: June 26, 2024 Dr. Horace Horta DO Emergency Provider Active S tart: June 26, 2024 End: June 26, 2024 Team Status: Inactive Member Role Status Dates Dr. Bridget Swenson MD Primary Care Provider Acti ve Start: June 30, 2024 End: July 26, 2024 Dr. Aleks Marshall MD Admit Provider Active Star t: June 30, 2024 End: July 26, 2024 Dr. Aleks Marshall MD Attending Provider Active Start: June 30, 2024 End: July 26, 2024 Dr. Juan José Marshall DO Other Provider Active Sta rt: June 30, 2024 End: July 26, 2024 Dr. Marisol Prather MD Other Provider Active Start : June 30, 2024 End: July 26, 2024 Dr. Jaja Gross MD Other Provider Active St art: June 30, 2024 End: July 26, 2024 Sofia Aguila NP-C Other Provider Active Sta rt: June 30, 2024 End: July 26, 2024 Monik Crocker NP, MANAGER PHP-C Other Provider Active Start: June 30, 2024 End: July 26, 2024 RM Combs Other Provider Active Start: F ebruary 2024 End: July 26, 2024 Team Status: Inactive Member Role Status Dates Dr. Bridget Swenson MD Primary Care Provider Acti ve Start: July 26, 2024 End: July 26, 2024 Dr. Bridget Swenson MD Referring Provider Active Start: July 26, 2024 End: July 26, 2024 Tarik Sen MANAGER PHP, MANAGER PHP-C Attending Provider Active S tart: July 26, 2024 End: July 26, 2024 Team Status: Active Member Role Status Dates Dr. Bridget Swenson MD Primary Care Provider Acti ve Start: August 30, 2024 Dr. Ayaz Hinton DO Emergency Provider Active Start: August 30, 2024 Dr. Layla Craig MD Admit Provider Active Star t: August 30, 2024 Dr. Layla Craig MD Attending Provider Active Start: August 30, 2024 Team Status: Inactive Member Role Status Dates Dr. Bridget Swenson MD Primary Care Provider Acti ve Start: August 30, 2024 End: August 31, 2024 Dr. Ayaz Hinton DO Emergency Provider Active Start: August 30, 2024 End: August 31, 2024 Dr. Layla Craig MD Admit Provider Active Star t: August 30, 2024 End: August 31, 2024 Dr. Layla Craig MD Other Provider Active Star t: August 30, 2024 End: August 31, 2024 Ayesha Choi MD Other Provider Active Start: 2024 End: August 31, 2024 Dr. Jean Carlos Fritz MD Other Provider Active Start: August 30, 2024 End: August 31, 2024 Mary Montalvo MD Other Provider Active Start : August 30, 2024 End: August 31, 2024 Dr. Clementine Martel DO Other Provider Active St art: August 30, 2024 End: August 31, 2024 Dr. Emmie Diaz MD Other Provider Active Start: August 30, 2024 End: August 31, 2024 Dr. Mega Altamirano MD Other Provider Active Sta rt: August 30, 2024 End: August 31, 2024 Dr. Fay Yañez MD Other Provider Active Start : August 30, 2024 End: August 31, 2024 Dr. Robert Castillo MD Other Provider Active Start: August 30, 2024 End: August 31, 2024 Dr. Camilo Abernathy MD Other Provider Active Start : August 30, 2024 End: August 31, 2024 Dr. John Ye MD Other Provider Active Sta rt: August 30, 2024 End: August 31, 2024 Rola Campos MD Other Provider Active Start : August 30, 2024 End: August 31, 2024 Dr. Gertrudis Mckee MD Other Provider Active St art: August 30, 2024 End: August 31, 2024 Dr. Giselle Wheatley MD Other Provider Active Start : August 30, 2024 End: August 31, 2024 Dr. Abram Coronel MD Other Provider Active Sta rt: August 30, 2024 End: August 31, 2024 Dr. Lizeth Jules MD Other Provider Active Start: August 30, 2024 End: August 31, 2024 Dr. Duglas Blanco MD Other Provider Active St art: August 30, 2024 End: August 31, 2024 Dr. Rayna Jordan MD Other Provider Active Star t: August 30, 2024 End: August 31, 2024 Dr. Boom Mariscal MD Other Provider Active St art: August 30, 2024 End: August 31, 2024 Dr. Bonnie Blunt MD Other Provider Active Start: August 30, 2024 End: August 31, 2024 José Miguel Bowman MD Other Provider Active Start: August 30, 2024 End: August 31, 2024 Dr. Charles Sullivan MD Attending Provider Active Start: August 30, 2024 End: August 31, 2024 Team Status: Active Member Role Status Dates Dr. Bridget Swenson MD Primary Care Provider Acti ve Start: August 30, 2024 Dr. Evin Mora MD Attending Provider Active S tart: August 30, 2024 Team Status: Active Member Role Status Dates Dr. Bridget Swenson MD Primary Care Provider Acti ve Start: August 31, 2024 Dr. Ayaz Hinton DO Emergency Provider Active Start: August 31, 2024 Dr. Layla Craig MD Admit Provider Active Star t: August 31, 2024 Dr. Layla Craig MD Other Provider Active Star t: August 31, 2024 Ayesha Choi MD Other Provider Active Start: Ap 2024 Dr. Jean Carlos Fritz MD Other Provider Active Start: August 31, 2024 Mary Montalvo MD Other Provider Active Start : August 31, 2024 Dr. Clementine Martel DO Other Provider Active St art: August 31, 2024 Dr. Emmie Diaz MD Other Provider Active Start: August 31, 2024 Dr. Mega Altamirano MD Other Provider Active Sta rt: August 31, 2024 Dr. Fay Yañez MD Other Provider Active Start : August 31, 2024 Dr. Robert Castillo MD Other Provider Active Start: August 31, 2024 Dr. Camilo Abernathy MD Other Provider Active Start : August 31, 2024 Dr. John Ye MD Other Provider Active Sta rt: August 31, 2024 Rola Campos MD Other Provider Active Start : August 31, 2024 Dr. Gertrudis Mckee MD Other Provider Active St art: August 31, 2024 Dr. Giselle Wheatley MD Other Provider Active Start : August 31, 2024 Dr. Abram Coronel MD Other Provider Active Sta rt: August 31, 2024 Dr. Lizeth Jules MD Other Provider Active Start: August 31, 2024 Dr. Duglas Blanco MD Other Provider Active St art: August 31, 2024 Dr. Rayna Jordan MD Other Provider Active Star t: August 31, 2024 Dr. Boom Mariscal MD Other Provider Active St art: August 31, 2024 Dr. Bonnie Blunt MD Other Provider Active Start: August 31, 2024 José Miguel Bowman MD Other Provider Active Start: August 31, 2024 Dr. Charles Sullivan MD Attending Provider Active Start: August 31, 2024 Dr. Charles Sullivan MD Other Provider Active Sta rt: August 31, 2024 Team Status: Inactive Member Role Status Dates Dr. Bridget Swenson MD Primary Care Provider Acti ve Start: September 01, 2024 End: September 03, 2024 Dr. Scooby Mobley DO Emergency Provider Active Start: September 01, 2024 End: September 03, 2024 Dr. Juan José Suarez DO Admit Provider Active Start: September 01, 2024 End: September 03, 2024 Dr. Juan José Suarez DO Other Provider Active Start: September 01, 2024 End: September 03, 2024 Dr. Charles Sullivan MD Attending Provider Active Start: September 01, 2024 End: September 03, 2024 Team Status: Active Member Role Status Dates Dr. Bridget Swenson MD Primary Care Provider Acti ve Start: September 02, 2024 Dr. Scooby Mobley DO Emergency Provider Active Start: September 02, 2024 Dr. Juan José Suarez DO Admit Provider Active Start: September 02, 2024 Dr. Juan José Suarez DO Other Provider Active Start: September 02, 2024 Dr. Charles Sullivan MD Attending Provider Active Start: September 02, 2024 Dr. Charles Sullivan MD Other Provider Active Sta rt: September 02, 2024 Team Status: Active Member Role Status Dates Dr. Bridget Swenson MD Primary Care Provider Acti ve Start: September 03, 2024 Dr. Scooby Mobley DO Emergency Provider Active Start: September 03, 2024 Dr. Juan José Suarez DO Admit Provider Active Start: September 03, 2024 Dr. Juan José Suarez DO Other Provider Active Start: September 03, 2024 Dr. Charles Sullivan MD Attending Provider Active Start: September 03, 2024 Dr. Charles Sullivan MD Other Provider Active Sta rt: September 03, 2024 Team Status: Active Member Role Status Dates Dr. Bridget Swenson MD Primary Care Provider Acti ve Start: September 06, 2024 Zackary GUTIERREZ MD Attending Provider Active Start: September 06, 2024 Team Status: Inactive Member Role Status Dates Dr. Bridget Swenson MD Primary Care Provider Acti ve Start: October 01, 2024 End: October 01, 2024 Dr. Ayaz Hinton DO Emergency Provider Active Start: October 01, 2024 End: October 01, 2024 Team Status: Active Member Role Status Dates Dr. Bridget Swenson MD Primary Care Provider Acti ve Start: October 04, 2024 Dr. Diana Snow , Emergency Provider Active Start: October 04, 2024 Dr. Juan José Suarez , DO Admit Provider Active Start: October 04, 2024 Dr. Juan José Suarez , DO Attending Provider Active Start: October 04, 2024 Team Status: Active Member Role Status Dates Dr. Bridget Swenson MD Primary Care Provider Acti ve Start: September 06, 2024 Zackary GUTIERREZ MD Attending Provider Active Start: September 06, 2024 Zackary GUTIERREZ MD Referring Provider Active Start: September 06, 2024 Team Status: Inactive Member Role Status Dates Dr. Bridget Swenson MD Primary Care Provider Acti ve Start: October 01, 2024 End: October 01, 2024 Dr. Ayaz Hinton , Attending Provider Active Start: October 01, 2024 End: October 01, 2024 Dr. Ayaz Hinton , Emergency Provider Active Start: October 01, 2024 End: October 01, 2024 Team Status: Active Member Role Status Dates Dr. Bridget Swenson MD Primary Care Provider Acti ve Start: October 04, 2024 Dr. Diana Snow , DO Emergency Provider Active Start: October 04, 2024 Dr. Juan José Suarez , Admit Provider Active Start: October 04, 2024 Dr. Juan José Suarez , DO Attending Provider Active Start: October 04, 2024 Dr. Juan José Suarez , DO Other Provider Active Start: October 04, 2024 Team Status: Active Member Role Status Dates Dr. Bridget Swenson MD Primary Care Provider Acti ve Start: October 04, 2024 Dr. Diana Snow , DO Emergency Provider Active Start: October 04, 2024 Dr. Juan José Suarez , DO Admit Provider Active Start: October 04, 2024 Dr. Juan José Suarez , DO Other Provider Active Start: October 04, 2024 Dr. Santino Haas , DO Attending Provider Active Start: October 04, 2024 Dr. Santino Haas , DO Other Provider Active Start: October 04, 2024 Team Status: Active Member Role Status Dates Dr. Bridget Swenson MD Primary Care Provider Acti ve Start: October 05, 2024 Dr. Diana Snow , DO Emergency Provider Active Start: October 05, 2024 Dr. Juan José Suarez , DO Admit Provider Active Start: October 05, 2024 Dr. Juan José Suarez , DO Other Provider Active Start: October 05, 2024 Dr. Santino Haas , DO Attending Provider Active Start: October 05, 2024 Dr. Santino Haas , DO Other Provider Active Start: October 05, 2024 Ayesha Choi MD Other Provider Active Start: Ar 2024 Dr. Jean Carlos Fritz MD Other Provider Active Start: October 05, 2024 Mary Montalvo MD Other Provider Active Start : October 05, 2024 Dr. Clementine Martel , DO Other Provider Active St art: October 05, 2024 Dr. Emmie Diaz MD Other Provider Active Start: October 05, 2024 Dr. Mega Altamirano MD Other Provider Active Sta rt: October 05, 2024 Dr. Fay Yañez MD Other Provider Active Start : October 05, 2024 Dr. Robert Castillo MD Other Provider Active Start: October 05, 2024 Dr. Camilo Abernathy MD Other Provider Active Start : October 05, 2024 Dr. John Ye MD Other Provider Active Sta rt: October 05, 2024 Rola Campos MD Other Provider Active Start : October 05, 2024 Dr. Gertrudis Mckee MD Other Provider Active St art: October 05, 2024 Dr. Giselle Wheatley MD Other Provider Active Start : October 05, 2024 Dr. Abram Coronel MD Other Provider Active Sta rt: October 05, 2024 Dr. Lizeth Jules MD Other Provider Active Start: October 05, 2024 Dr. Duglas Blanco MD Other Provider Active St art: October 05, 2024 Dr. Rayna Jordan MD Other Provider Active Star t: October 05, 2024 Dr. Boom Mariscal MD Other Provider Active St art: October 05, 2024 Dr. Bonnie Blunt MD Other Provider Active Start: October 05, 2024 José Miguel Bowman MD Other Provider Active Start: October 05, 2024 Team Status: Active Member Role Status Dates Dr. Bridget Swenson MD Primary Care Provider Acti ve Start: October 06, 2024 Dr. Diana nSow , DO Emergency Provider Active Start: October 06, 2024 Dr. Juan José Suarez , DO Admit Provider Active Start: October 06, 2024 Dr. Juan José Suarez , DO Other Provider Active Start: October 06, 2024 Dr. Santino Haas , DO Attending Provider Active Start: October 06, 2024 Dr. Santino Haas , DO Other Provider Active Start: October 06, 2024 Ayesha Choi MD Other Provider Active Start: Ma y 2024 Dr. Jean Carlos Fritz MD Other Provider Active Start: October 06, 2024 Mary Montalvo MD Other Provider Active Start : October 06, 2024 Dr. Clementine Martel , Other Provider Active St art: October 06, 2024 Dr. Emmie Diaz MD Other Provider Active Start: October 06, 2024 Dr. Mega Altamirano MD Other Provider Active Sta rt: October 06, 2024 Dr. Fay Yañez MD Other Provider Active Start : October 06, 2024 Dr. Robert Castillo MD Other Provider Active Start: October 06, 2024 Dr. Camilo Abernathy MD Other Provider Active Start : October 06, 2024 Dr. John Ye MD Other Provider Active Sta rt: October 06, 2024 Rola Campos MD Other Provider Active Start : October 06, 2024 Dr. Gertrudis Mckee MD Other Provider Active St art: October 06, 2024 Dr. Giselle Wheatley MD Other Provider Active Start : October 06, 2024 Dr. Abram Coronel MD Other Provider Active Sta rt: October 06, 2024 Dr. Lizeth Jules MD Other Provider Active Start: October 06, 2024 Dr. Duglas Blanco MD Other Provider Active St art: October 06, 2024 Dr. Rayna Jordan MD Other Provider Active Star t: October 06, 2024 Dr. Boom Mariscal MD Other Provider Active St art: October 06, 2024 Dr. Bonnie Blunt MD Other Provider Active Start: October 06, 2024 José Miguel Bowman MD Other Provider Active Start: October 06, 2024 Team Status: Inactive Member Role Status Dates Dr. Bridget Swenson MD Primary Care Provider Acti ve Start: October 06, 2024 End: October 09, 2024 Dr. Diana Snow , DO Emergency Provider Active Start: October 06, 2024 End: October 09, 2024 Dr. Juan José Suarez , DO Admit Provider Active Start: October 06, 2024 End: October 09, 2024 Dr. Juan José Suarez , DO Other Provider Active Start: October 06, 2024 End: October 09, 2024 Dr. Santino Haas , DO Attending Provider Active Start: October 06, 2024 End: October 09, 2024 Team Status: Active Member Role Status Dates Dr. Bridget Swenson MD Primary Care Provider Acti ve Start: October 07, 2024 Dr. Diana Snow , DO Emergency Provider Active Start: October 07, 2024 Dr. Juan José Suarez , DO Admit Provider Active Start: October 07, 2024 Dr. Juan José Suarez , DO Other Provider Active Start: October 07, 2024 Dr. Santino Haas , DO Attending Provider Active Start: October 07, 2024 Dr. Santino Haas , DO Other Provider Active Start: October 07, 2024 Team Status: Active Member Role Status Dates Dr. Bridget Swenson MD Primary Care Provider Acti ve Start: October 08, 2024 Dr. Diana Snow , DO Emergency Provider Active Start: October 08, 2024 Dr. Juan José Suarez , DO Admit Provider Active Start: October 08, 2024 Dr. Juan José Suarez , DO Other Provider Active Start: October 08, 2024 Dr. Santino Haas , DO Attending Provider Active Start: October 08, 2024 Dr. Santino Haas , DO Other Provider Active Start: October 08, 2024 Team Status: Active Member Role Status Dates Dr. Bridget Swenson MD Primary Care Provider Acti ve Start: October 09, 2024 Dr. Diana Snow , DO Emergency Provider Active Start: October 09, 2024 Dr. Juan José Suarez , DO Admit Provider Active Start: October 09, 2024 Dr. Juan José Suarez , DO Other Provider Active Start: October 09, 2024 Dr. Santino Haas , DO Attending Provider Active Start: October 09, 2024 Dr. Santino Haas , DO Other Provider Active Start: October 09, 2024 Business And Financial Counsel Relationship Specialty Start Date End Date Generic Provider, No Assigned Pcp, [place] [address] PCP - General Franchise Business Consultant 10/12/24 10/12/24 Bridget Swenson MD [address] [place] [address] [place], [place] [address] PCP - General Family Medicine 10/13/24 Team Status: Inactive Member Role Status Dates Dr. Bridget Swenson MD Primary Care Provider Acti ve Start: September 06, 2024 End: September 06, 2024 Zackary GUTIERREZ MD Attending Provider Active Start: September 06, 2024 End: September 06, 2024 Zackary GUTIERREZ MD Referring Provider Active Start: September 06, 2024 End: September 06, 2024 Business And Financial Counsel Relationship Specialty Start Date End Date Bridget Swenson MD [address], [place] [id number] PCP - General Family Medicine 05/14/24 Business And Financial Counsel Relationship Specialty Start Date End Date Bridget Swenson MD [address] [place], [place] [id number] PCP - General Family Medicine 05/14/24 Team Status: Inactive Member Role Status Dates Dr. Bridget Swenson MD Primary Care Provider Acti ve Start: September 06, 2024 End: September 06, 2024 Richa Arrieta MANAGER PHP, MANAGER PHP-C Attending Provider Active Start: September 06, 2024 End: September 06, 2024 Team Status: Inactive Member Role Status Dates Dr. Bridget Swenson MD Primary Care Provider Acti ve Start: September 07, 2024 End: September 07, 2024 Dr. Zackary Lyon MD Attending Provider Active Start: September 07, 2024 End: September 07, 2024 Team Status: Active Member Role/Relationship Status Dates Dr. Bridget Swenson MD Primary Care Provider Acti ve Team Status: Inactive Member Role/Relationship Status Dates Dr. Bridget Swenson MD Primary Care Provider Acti ve Start: June 30, 2024 End: July 26, 2024 Dr. Aleks Marshall MD Admit Provider Active Star t: June 30, 2024 End: July 26, 2024 Dr. lAeks Marshall MD Attending Provider Active Start: June 30, 2024 End: July 26, 2024 Dr. Juan José Marshall , Other Provider Active Sta rt: June 30, 2024 End: July 26, 2024 Dr. Marisol Prather MD Other Provider Active Start : June 30, 2024 End: July 26, 2024 Dr. Jaja Gross MD Other Provider Active St art: June 30, 2024 End: July 26, 2024 Sofia Aguila NP-C Other Provider Active Sta rt: June 30, 2024 End: July 26, 2024 Monik Crocker NP, MANAGER PHP-C Other Provider Active Start: June 30, 2024 End: July 26, 2024 RM Combs Other Provider Active Start[facility] End: July 26, 2024 Team Status: Inactive Member Role/Relationship Status Dates Dr. Bridget Swenson MD Primary Care Provider Acti ve Start: July 26, 2024 End: July 26, 2024 Dr. Bridget Swenson MD Referring Provider Active Start: July 26, 2024 End: July 26, 2024 Tarik Sen MANAGER PHP, MANAGER PHP-C Attending Provider Active S tart: July 26, 2024 End: July 26, 2024 Team Status: Inactive Member Role/Relationship Status Dates Dr. Bridget Swenson MD Primary Care Provider Acti ve Start: August 30, 2024 End: August 31, 2024 Dr. Ayaz Hinton , Emergency Provider Active Start: August 30, 2024 End: August 31, 2024 Dr. Layla Craig MD Admit Provider Active Star t: August 30, 2024 End: August 31, 2024 Dr. Layla Craig MD Other Provider Active Star t: August 30, 2024 End: August 31, 2024 Ayesha Choi MD Other Provider Active Start: 2024 End: August 31, 2024 Dr. Jean Carlos Fritz MD Other Provider Active Start: August 30, 2024 End: August 31, 2024 Mary Montalvo MD Other Provider Active Start : August 30, 2024 End: August 31, 2024 Dr. Clementine Martel DO Other Provider Active St art: August 30, 2024 End: August 31, 2024 Dr. Emmie Diaz MD Other Provider Active Start: August 30, 2024 End: August 31, 2024 Dr. Mega Altamirano MD Other Provider Active Sta rt: August 30, 2024 End: August 31, 2024 Dr. Fay Yañez MD Other Provider Active Start : August 30, 2024 End: August 31, 2024 Dr. Robert Castillo MD Other Provider Active Start: August 30, 2024 End: August 31, 2024 Dr. Camilo Abernathy MD Other Provider Active Start : August 30, 2024 End: August 31, 2024 Dr. John Ye MD Other Provider Active Sta rt: August 30, 2024 End: August 31, 2024 Rola Campos MD Other Provider Active Start : August 30, 2024 End: August 31, 2024 Dr. Gertrudis Mckee MD Other Provider Active St art: August 30, 2024 End: August 31, 2024 Dr. Giselle Wheatley MD Other Provider Active Start : August 30, 2024 End: August 31, 2024 Dr. Abram Coronel MD Other Provider Active Sta rt: August 30, 2024 End: August 31, 2024 Dr. Lizeth Jules MD Other Provider Active Start: August 30, 2024 End: August 31, 2024 Dr. Duglas Blanco MD Other Provider Active St art: August 30, 2024 End: August 31, 2024 Dr. Rayna Jordan MD Other Provider Active Star t: August 30, 2024 End: August 31, 2024 Dr. Boom Mariscal MD Other Provider Active St art: August 30, 2024 End: August 31, 2024 Dr. Bonnie Blunt MD Other Provider Active Start: August 30, 2024 End: August 31, 2024 José Miguel Bowman MD Other Provider Active Start: August 30, 2024 End: August 31, 2024 Dr. Charles Sullivan MD Attending Provider Active Start: August 30, 2024 End: August 31, 2024 Team Status: Active Member Role/Relationship Status Dates Dr. Bridget Swenson MD Primary Care Provider Acti ve Start: August 30, 2024 Dr. Evin Mora MD Attending Provider Active S tart: August 30, 2024 Team Status: Active Member Role/Relationship Status Dates Dr. Bridget Swenson MD Primary Care Provider Acti ve Start: August 31, 2024 Dr. Ayaz Hinton DO Emergency Provider Active Start: August 31, 2024 Dr. Layla Craig MD Admit Provider Active Star t: August 31, 2024 Dr. Layla Craig MD Other Provider Active Star t: August 31, 2024 Ayesha Choi MD Other Provider Active Start: 2024 Dr. Jean Carlos Fritz MD Other Provider Active Start: August 31, 2024 Mary Montalvo MD Other Provider Active Start : August 31, 2024 Dr. Clementine Martel DO Other Provider Active St art: August 31, 2024 Dr. Emmie Diaz MD Other Provider Active Start: August 31, 2024 Dr. Mega Altamirano MD Other Provider Active Sta rt: August 31, 2024 Dr. Fay Yañez MD Other Provider Active Start : August 31, 2024 Dr. Robert Castillo MD Other Provider Active Start: August 31, 2024 Dr. Camilo Abernathy MD Other Provider Active Start : August 31, 2024 Dr. John Ye MD Other Provider Active Sta rt: August 31, 2024 Rola Campos MD Other Provider Active Start : August 31, 2024 Dr. Gertrudis Mckee MD Other Provider Active St art: August 31, 2024 Dr. Giselle Wheatley MD Other Provider Active Start : August 31, 2024 Dr. Abram Coronel MD Other Provider Active Sta rt: August 31, 2024 Dr. Lizeth Jules MD Other Provider Active Start: August 31, 2024 Dr. Duglas Blanco MD Other Provider Active St art: August 31, 2024 Dr. Rayna Jordan MD Other Provider Active Star t: August 31, 2024 Dr. Boom Mariscal MD Other Provider Active St art: August 31, 2024 Dr. Bonnie Blunt MD Other Provider Active Start: August 31, 2024 José Miguel Bowman MD Other Provider Active Start: August 31, 2024 Dr. Charles Sullivan MD Attending Provider Active Start: August 31, 2024 Dr. Charles Sullivan MD Other Provider Active Sta rt: August 31, 2024 Team Status: Inactive Member Role/Relationship Status Dates Dr. Bridget Swenson MD Primary Care Provider Acti ve Start: September 01, 2024 End: September 03, 2024 Dr. Scooby Mobley DO Emergency Provider Active Start: September 01, 2024 End: September 03, 2024 Dr. Juan José Suarez DO Admit Provider Active Start: September 01, 2024 End: September 03, 2024 Dr. Juan José Suarez DO Other Provider Active Start: September 01, 2024 End: September 03, 2024 Dr. Charles Sullivan MD Attending Provider Active Start: September 01, 2024 End: September 03, 2024 Team Status: Active Member Role/Relationship Status Dates Dr. Bridget Swenson MD Primary Care Provider Acti ve Start: September 02, 2024 Dr. Scooby Mobley DO Emergency Provider Active Start: September 02, 2024 Dr. Juan José Suarez DO Admit Provider Active Start: September 02, 2024 Dr. Juan José Suarez DO Other Provider Active Start: September 02, 2024 Dr. Charles Slulivan MD Attending Provider Active Start: September 02, 2024 Dr. Charles Sullivan MD Other Provider Active Sta rt: September 02, 2024 Team Status: Active Member Role/Relationship Status Dates Dr. Bridget Swenson MD Primary Care Provider Acti ve Start: September 03, 2024 Dr. Scooby Mobley DO Emergency Provider Active Start: September 03, 2024 Dr. Juan José Suarez DO Admit Provider Active Start: September 03, 2024 Dr. Juan José Suarez DO Other Provider Active Start: September 03, 2024 Dr. Charles Sullivan MD Attending Provider Active Start: September 03, 2024 Dr. Charles Sullivan MD Other Provider Active Sta rt: September 03, 2024 Team Status: Inactive Member Role/Relationship Status Dates Dr. Bridget Swenson MD Primary Care Provider Acti ve Start: September 06, 2024 End: September 06, 2024 Zackary GUTIERREZ MD Attending Provider Active Start: September 06, 2024 End: September 06, 2024 Zackary GUTIERREZ MD Referring Provider Active Start: September 06, 2024 End: September 06, 2024 Team Status: Inactive Member Role/Relationship Status Dates Dr. Bridget Swenson MD Primary Care Provider Acti ve Start: September 06, 2024 End: September 06, 2024 Richa Arrieta MANAGER PHP, MANAGER PHP-C Attending Provider Active Start: September 06, 2024 End: September 06, 2024 Team Status: Inactive Member Role/Relationship Status Dates Dr. Bridget Swenson MD Primary Care Provider Acti ve Start: September 07, 2024 End: September 07, 2024 Dr. Zackary Lyon MD Attending Provider Active Start: September 07, 2024 End: September 07, 2024 Team Status: Inactive Member Role/Relationship Status Dates Dr. Bridget Swenson MD Primary Care Provider Acti ve Start: October 01, 2024 End: October 01, 2024 Dr. Ayaz Hinton DO Attending Provider Active Start: October 01, 2024 End: October 01, 2024 Dr. Ayaz Hinton DO Emergency Provider Active Start: October 01, 2024 End: October 01, 2024 Team Status: Active Member Role/Relationship Status Dates Dr. Bridget Swenson MD Primary Care Provider Acti ve Start: October 04, 2024 Dr. Diana Snow DO Emergency Provider Active Start: October 04, 2024 Dr. Juan José Suarez DO Admit Provider Active Start: October 04, 2024 Dr. Juan José Suarez DO Attending Provider Active Start: October 04, 2024 Dr. Juan José de Maurilio , DO Other Provider Active Start: October 04, 2024 Team Status: Active Member Role/Relationship Status Dates Dr. Bridget Swenson MD Primary Care Provider Acti ve Start: October 04, 2024 Dr. Diana Snow , DO Emergency Provider Active Start: October 04, 2024 Dr. Juan José Suarez , DO Admit Provider Active Start: October 04, 2024 Dr. Juan José Suarez , DO Other Provider Active Start: October 04, 2024 Dr. Santino Haas , DO Attending Provider Active Start: October 04, 2024 Dr. Santino Haas , DO Other Provider Active Start: October 04, 2024 Team Status: Active Member Role/Relationship Status Dates Dr. Bridget Swenson MD Primary Care Provider Acti ve Start: October 05, 2024 Dr. Diana Snow , DO Emergency Provider Active Start: October 05, 2024 Dr. Juan José Suarez , DO Admit Provider Active Start: October 05, 2024 Dr. Juan José Suarez , DO Other Provider Active Start: October 05, 2024 Dr. Santino Haas , DO Attending Provider Active Start: October 05, 2024 Dr. Santino Haas , DO Other Provider Active Start: October 05, 2024 Ayesha Choi MD Other Provider Active Start: 2024 Dr. Jean Carlos Fritz MD Other Provider Active Start: October 05, 2024 Mary Montalvo MD Other Provider Active Start : October 05, 2024 Dr. Clementine Martel , DO Other Provider Active St art: October 05, 2024 Dr. Emmie Diaz MD Other Provider Active Start: October 05, 2024 Dr. Mega Altamirano MD Other Provider Active Sta rt: October 05, 2024 Dr. Fay Yañez MD Other Provider Active Start : October 05, 2024 Dr. Robert Castillo MD Other Provider Active Start: October 05, 2024 Dr. Camilo Abernathy MD Other Provider Active Start : October 05, 2024 Dr. John Ye MD Other Provider Active Sta rt: October 05, 2024 Rola Campos MD Other Provider Active Start : October 05, 2024 Dr. Gertrudis Mckee MD Other Provider Active St art: October 05, 2024 Dr. Giselle Wheatley MD Other Provider Active Start : October 05, 2024 Dr. Abram Coronel MD Other Provider Active Sta rt: October 05, 2024 Dr. Lizeth Jules MD Other Provider Active Start: October 05, 2024 Dr. Duglas Blanco MD Other Provider Active St art: October 05, 2024 Dr. Rayna Jordan MD Other Provider Active Star t: October 05, 2024 Dr. Boom Mariscal MD Other Provider Active St art: October 05, 2024 Dr. Bonnie Blunt MD Other Provider Active Start: October 05, 2024 José Miguel Bowman MD Other Provider Active Start: October 05, 2024 Team Status: Active Member Role/Relationship Status Dates Dr. Bridget Swenson MD Primary Care Provider Acti ve Start: October 06, 2024 Dr. Diana Snow , Emergency Provider Active Start: October 06, 2024 Dr. Juan José Suarez DO Admit Provider Active Start: October 06, 2024 Dr. Juan José Suarez DO Other Provider Active Start: October 06, 2024 Dr. Santino Haas , Attending Provider Active Start: October 06, 2024 Dr. Santino Haas DO Other Provider Active Start: October 06, 2024 Ayesha Choi MD Other Provider Active Start: Ar 2024 Dr. Jean Carlos Fritz MD Other Provider Active Start: October 06, 2024 Mary Montalvo MD Other Provider Active Start : October 06, 2024 Dr. Clementine Martel DO Other Provider Active St art: October 06, 2024 Dr. Emmie Diaz MD Other Provider Active Start: October 06, 2024 Dr. Mega Altamirano MD Other Provider Active Sta rt: October 06, 2024 Dr. Fay Yañez MD Other Provider Active Start : October 06, 2024 Dr. Robert Castillo MD Other Provider Active Start: October 06, 2024 Dr. Camilo Abernathy MD Other Provider Active Start : October 06, 2024 Dr. John Ye MD Other Provider Active Sta rt: October 06, 2024 Rola Campos MD Other Provider Active Start : October 06, 2024 Dr. Gertrudis Mckee MD Other Provider Active St art: October 06, 2024 Dr. Giselle Wheatley MD Other Provider Active Start : October 06, 2024 Dr. Abram Coronel MD Other Provider Active Sta rt: October 06, 2024 Dr. Lizeth Jules MD Other Provider Active Start: October 06, 2024 Dr. Duglas Blanco MD Other Provider Active St art: October 06, 2024 Dr. Rayna Jordan MD Other Provider Active Star t: October 06, 2024 Dr. Boom Mariscal MD Other Provider Active St art: October 06, 2024 Dr. Bonnie Blunt MD Other Provider Active Start: October 06, 2024 José Miguel Bowman MD Other Provider Active Start: October 06, 2024 Team Status: Inactive Member Role/Relationship Status Dates Dr. Bridget Swenson MD Primary Care Provider Acti ve Start: October 06, 2024 End: October 09, 2024 Dr. Diana Snow , DO Emergency Provider Active Start: October 06, 2024 End: October 09, 2024 Dr. Juan José Suarez , DO Admit Provider Active Start: October 06, 2024 End: October 09, 2024 Dr. Juan José Suarez , DO Other Provider Active Start: October 06, 2024 End: October 09, 2024 Dr. Santino Haas , Attending Provider Active Start: October 06, 2024 End: October 09, 2024 Team Status: Active Member Role/Relationship Status Dates Dr. Bridget Swenson MD Primary Care Provider Acti ve Start: October 07, 2024 Dr. Diana Snow , Emergency Provider Active Start: October 07, 2024 Dr. Juan José Suarez , DO Admit Provider Active Start: October 07, 2024 Dr. Juan José Suarez , DO Other Provider Active Start: October 07, 2024 Dr. Santino Haas , DO Attending Provider Active Start: October 07, 2024 Dr. Santino Haas , DO Other Provider Active Start: October 07, 2024 Team Status: Active Member Role/Relationship Status Dates Dr. Bridget Swenson MD Primary Care Provider Acti ve Start: October 08, 2024 Dr. Diana Snow , DO Emergency Provider Active Start: October 08, 2024 Dr. Juan José Suarez , DO Admit Provider Active Start: October 08, 2024 Dr. Juan José Suarez , DO Other Provider Active Start: October 08, 2024 Dr. Santino Haas , DO Attending Provider Active Start: October 08, 2024 Dr. Santino Haas , DO Other Provider Active Start: October 08, 2024 Team Status: Active Member Role/Relationship Status Dates Dr. Bridget Swenson MD Primary Care Provider Acti ve Start: October 09, 2024 Dr. Diana Snow , DO Emergency Provider Active Start: October 09, 2024 Dr. Juan José Suarez , DO Admit Provider Active Start: October 09, 2024 Dr. Juan José Suarez , DO Other Provider Active Start: October 09, 2024 Dr. Santino Haas , DO Attending Provider Active Start: October 09, 2024 Dr. Santino Haas , DO Other Provider Active Start: October 09, 2024 Team Status: Inactive Member Role/Relationship Status Dates Dr. Bridget Swenson MD Primary Care Provider Acti ve Start: November 17, 2024 End: November 17, 2024 Dr. Tylor Hendrickson , Referring Provider Active Start: November 17, 2024 End: November 17, 2024 Dr. Tylor Hendrickson , Emergency Provider Active Start: November 17, 2024 End: November 17, 2024 Team Status: Inactive Member Role/Relationship Status Dates Dr. Bridget Swenson MD Primary Care Provider Acti ve Start: November 19, 2024 End: November 19, 2024 Dr. Bridget Swenson MD Referring Provider Active Start: November 19, 2024 End: November 19, 2024 Sho Andino MANAGER PHP, MANAGER PHP-C Attending Provider Active Start: November 19, 2024 End: November 19, 2024 Team Status: Inactive Member Role/Relationship Status Dates Dr. Bridget Swenson MD Primary Care Provider Acti ve Start: August 30, 2024 End: August 31, 2024 Dr. Ayaz Hinton , Emergency Provider Active Start: August 30, 2024 End: August 31, 2024 Dr. Layla Craig MD Admit Provider Active Star t: August 30, 2024 End: August 31, 2024 Dr. Layla Craig MD Other Provider Active Star t: August 30, 2024 End: August 31, 2024 Ayesha Choi MD Other Provider Active Start: 2024 End: August 31, 2024 Dr. Jean Carlos Fritz MD Other Provider Active Start: August 30, 2024 End: August 31, 2024 Mary Montalvo MD Other Provider Active Start : August 30, 2024 End: August 31, 2024 Dr. Clementine Martel DO Other Provider Active St art: August 30, 2024 End: August 31, 2024 Dr. Emmie Diaz MD Other Provider Active Start: August 30, 2024 End: August 31, 2024 Dr. Mega Altamirano MD Other Provider Active Sta rt: August 30, 2024 End: August 31, 2024 Dr. Fay Yañez MD Other Provider Active Start : August 30, 2024 End: August 31, 2024 Dr. Robert Castillo MD Other Provider Active Start: August 30, 2024 End: August 31, 2024 Dr. Camilo Abernathy MD Other Provider Active Start : August 30, 2024 End: August 31, 2024 Dr. John Ye MD Other Provider Active Sta rt: August 30, 2024 End: August 31, 2024 Rola Campos MD Other Provider Active Start : August 30, 2024 End: August 31, 2024 Dr. Gertrudis Mckee MD Other Provider Active St art: August 30, 2024 End: August 31, 2024 Dr. Giselle Wheatley MD Other Provider Active Start : August 30, 2024 End: August 31, 2024 Dr. Abram Coronel MD Other Provider Active Sta rt: August 30, 2024 End: August 31, 2024 Dr. Lizeth Jules MD Other Provider Active Start: August 30, 2024 End: August 31, 2024 Dr. Duglas Blanco MD Other Provider Active St art: August 30, 2024 End: August 31, 2024 Dr. Rayna Jordan MD Other Provider Active Star t: August 30, 2024 End: August 31, 2024 Dr. Boom Mariscal MD Other Provider Active St art: August 30, 2024 End: August 31, 2024 Dr. Bonnie Blunt MD Other Provider Active Start: August 30, 2024 End: August 31, 2024 José Miguel Bowman MD Other Provider Active Start: August 30, 2024 End: August 31, 2024 Dr. Charles Sullivan MD Attending Provider Active Start: August 30, 2024 End: August 31, 2024 Team Status: Active Member Role/Relationship Status Dates Dr. Bridget Swenson MD Primary Care Provider Acti ve Start: August 30, 2024 Dr. Evin Mora MD Attending Provider Active S tart: August 30, 2024 Team Status: Active Member Role/Relationship Status Dates Dr. Bridget Swenson MD Primary Care Provider Acti ve Start: August 31, 2024 Dr. Ayaz Hinton DO Emergency Provider Active Start: August 31, 2024 Dr. Layla Craig MD Admit Provider Active Star t: August 31, 2024 Dr. Layla Craig MD Other Provider Active Star t: August 31, 2024 Ayesha Choi MD Other Provider Active Start: 2024 Dr. Jean Carlos Fritz MD Other Provider Active Start: August 31, 2024 Mary Montalvo MD Other Provider Active Start : August 31, 2024 Dr. Clementine Martel DO Other Provider Active St art: August 31, 2024 Dr. Emmie Diaz MD Other Provider Active Start: August 31, 2024 Dr. Mega Altamirano MD Other Provider Active Sta rt: August 31, 2024 Dr. Fay Yañez MD Other Provider Active Start : August 31, 2024 Dr. Robert Castillo MD Other Provider Active Start: August 31, 2024 Dr. Camilo Abernathy MD Other Provider Active Start : August 31, 2024 Dr. John Ye MD Other Provider Active Sta rt: August 31, 2024 Rola Campos MD Other Provider Active Start : August 31, 2024 Dr. Gertrudis Mckee MD Other Provider Active St art: August 31, 2024 Dr. Giselle Wheatley MD Other Provider Active Start : August 31, 2024 Dr. Abram Coronel MD Other Provider Active Sta rt: August 31, 2024 Dr. Lizeth Jules MD Other Provider Active Start: August 31, 2024 Dr. Duglas Blanco MD Other Provider Active St art: August 31, 2024 Dr. Rayna Jordan MD Other Provider Active Star t: August 31, 2024 Dr. Boom Mariscal MD Other Provider Active St art: August 31, 2024 Dr. Bonnie Blunt MD Other Provider Active Start: August 31, 2024 José Miguel Bowman MD Other Provider Active Start: August 31, 2024 Dr. Charles Sullivan MD Attending Provider Active Start: August 31, 2024 Dr. Charles Sullivan MD Other Provider Active Sta rt: August 31, 2024 Team Status: Inactive Member Role/Relationship Status Dates Dr. Bridget Swenson MD Primary Care Provider Acti ve Start: September 01, 2024 End: September 03, 2024 Dr. Scooby Mobley DO Emergency Provider Active Start: September 01, 2024 End: September 03, 2024 Dr. Juan José Suarez DO Admit Provider Active Start: September 01, 2024 End: September 03, 2024 Dr. Juan José Suarez DO Other Provider Active Start: September 01, 2024 End: September 03, 2024 Dr. Charles Sullivan MD Attending Provider Active Start: September 01, 2024 End: September 03, 2024 Team Status: Active Member Role/Relationship Status Dates Dr. Bridget Swenson MD Primary Care Provider Acti ve Start: September 02, 2024 Dr. Scooby Mobley DO Emergency Provider Active Start: September 02, 2024 Dr. Juan José Suarez DO Admit Provider Active Start: September 02, 2024 Dr. Juan José Suarez DO Other Provider Active Start: September 02, 2024 Dr. Charles Sullivan MD Attending Provider Active Start: September 02, 2024 Dr. Charles Sullivan MD Other Provider Active Sta rt: September 02, 2024 Team Status: Active Member Role/Relationship Status Dates Dr. Bridget Swenson MD Primary Care Provider Acti ve Start: September 03, 2024 Dr. Scooby Mobley DO Emergency Provider Active Start: September 03, 2024 Dr. Juan José Suarez DO Admit Provider Active Start: September 03, 2024 Dr. Juan José Suarez DO Other Provider Active Start: September 03, 2024 Dr. Charles Sullivan MD Attending Provider Active Start: September 03, 2024 Dr. Charles Sullivan MD Other Provider Active Sta rt: September 03, 2024 Team Status: Inactive Member Role/Relationship Status Dates Dr. Bridget Swenson MD Primary Care Provider Acti ve Start: September 06, 2024 End: September 06, 2024 Zackary GUTIERREZ MD Attending Provider Active Start: September 06, 2024 End: September 06, 2024 Zackary GUTIERREZ MD Referring Provider Active Start: September 06, 2024 End: September 06, 2024 Team Status: Inactive Member Role/Relationship Status Dates Dr. Bridget Swenson MD Primary Care Provider Acti ve Start: September 06, 2024 End: September 06, 2024 Richa Arrieta MANAGER PHP, MANAGER PHP-C Attending Provider Active Start: September 06, 2024 End: September 06, 2024 Team Status: Inactive Member Role/Relationship Status Dates Dr. Bridget Swenson MD Primary Care Provider Acti ve Start: September 07, 2024 End: September 07, 2024 Dr. Zackary Lyon MD Attending Provider Active Start: September 07, 2024 End: September 07, 2024 Team Status: Inactive Member Role/Relationship Status Dates Dr. Bridget Swenson MD Primary Care Provider Acti ve Start: October 01, 2024 End: October 01, 2024 Dr. Ayaz Hinton DO Attending Provider Active Start: October 01, 2024 End: October 01, 2024 Dr. Ayaz Hinton DO Emergency Provider Active Start: October 01, 2024 End: October 01, 2024 Team Status: Active Member Role/Relationship Status Dates Dr. Bridget Swenson MD Primary Care Provider Acti ve Start: October 04, 2024 Dr. Diana Snow DO Emergency Provider Active Start: October 04, 2024 Dr. Juan José Suarez DO Admit Provider Active Start: October 04, 2024 Dr. Juan José de Maurilio , DO Attending Provider Active Start: October 04, 2024 Dr. Juan José Suarez , DO Other Provider Active Start: October 04, 2024 Team Status: Active Member Role/Relationship Status Dates Dr. Bridget Swenson MD Primary Care Provider Acti ve Start: October 04, 2024 Dr. Diana Snow , DO Emergency Provider Active Start: October 04, 2024 Dr. Juan José Suarez , DO Admit Provider Active Start: October 04, 2024 Dr. Juan José Suarez , DO Other Provider Active Start: October 04, 2024 Dr. Santino Haas , DO Attending Provider Active Start: October 04, 2024 Dr. Santino Haas , DO Other Provider Active Start: October 04, 2024 Team Status: Active Member Role/Relationship Status Dates Dr. Bridget Swenson MD Primary Care Provider Acti ve Start: October 05, 2024 Dr. Diana Snow , DO Emergency Provider Active Start: October 05, 2024 Dr. Juan José Suarez , DO Admit Provider Active Start: October 05, 2024 Dr. Juan José Suarez , DO Other Provider Active Start: October 05, 2024 Dr. Santino Haas , DO Attending Provider Active Start: October 05, 2024 Dr. Santino Haas , DO Other Provider Active Start: October 05, 2024 Ayesha Choi MD Other Provider Active Start: 2024 Dr. Jean Carlos Fritz MD Other Provider Active Start: October 05, 2024 Mary Montalvo MD Other Provider Active Start : October 05, 2024 Dr. Clementine Martel , DO Other Provider Active St art: October 05, 2024 Dr. Emmie Diaz MD Other Provider Active Start: October 05, 2024 Dr. Mega Altamirano MD Other Provider Active Sta rt: October 05, 2024 Dr. Fay Yañez MD Other Provider Active Start : October 05, 2024 Dr. Robert Castillo MD Other Provider Active Start: October 05, 2024 Dr. Camilo Abernathy MD Other Provider Active Start : October 05, 2024 Dr. John Ye MD Other Provider Active Sta rt: October 05, 2024 Rola Campos MD Other Provider Active Start : October 05, 2024 Dr. Gertrudis Mckee MD Other Provider Active St art: October 05, 2024 Dr. Giselle Wheatley MD Other Provider Active Start : October 05, 2024 Dr. Abram Coronel MD Other Provider Active Sta rt: October 05, 2024 Dr. Lizeth Jules MD Other Provider Active Start: October 05, 2024 Dr. Duglas Blanco MD Other Provider Active St art: October 05, 2024 Dr. Rayna Jordan MD Other Provider Active Star t: October 05, 2024 Dr. Boom Mariscal MD Other Provider Active St art: October 05, 2024 Dr. Bonnie Blunt MD Other Provider Active Start: October 05, 2024 José Miguel Bowman MD Other Provider Active Start: October 05, 2024 Team Status: Active Member Role/Relationship Status Dates Dr. Bridget Swenson MD Primary Care Provider Acti ve Start: October 06, 2024 Dr. Diana Snow , Emergency Provider Active Start: October 06, 2024 Dr. Juan José Suarez DO Admit Provider Active Start: October 06, 2024 Dr. Juan José Suarez , Other Provider Active Start: October 06, 2024 Dr. Santino Haas , Attending Provider Active Start: October 06, 2024 Dr. Santino Haas , Other Provider Active Start: October 06, 2024 Ayesha Choi MD Other Provider Active Start: Ar 2024 Dr. Jean Carlos Fritz MD Other Provider Active Start: October 06, 2024 Mary Montalvo MD Other Provider Active Start : October 06, 2024 Dr. Clementine Martel DO Other Provider Active St art: October 06, 2024 Dr. Emmie Diaz MD Other Provider Active Start: October 06, 2024 Dr. Mega Altamirano MD Other Provider Active Sta rt: October 06, 2024 Dr. Fay Yañez MD Other Provider Active Start : October 06, 2024 Dr. Robert Castillo MD Other Provider Active Start: October 06, 2024 Dr. Camilo Abernathy MD Other Provider Active Start : October 06, 2024 Dr. John Ye MD Other Provider Active Sta rt: October 06, 2024 Rola Campos MD Other Provider Active Start : October 06, 2024 Dr. Gertrudis Mckee MD Other Provider Active St art: October 06, 2024 Dr. Giselle Wheatley MD Other Provider Active Start : October 06, 2024 Dr. Abram Coronel MD Other Provider Active Sta rt: October 06, 2024 Dr. Lizeth Jules MD Other Provider Active Start: October 06, 2024 Dr. Duglas Blanco MD Other Provider Active St art: October 06, 2024 Dr. Rayna Jordan MD Other Provider Active Star t: October 06, 2024 Dr. Boom Mariscal MD Other Provider Active St art: October 06, 2024 Dr. Bonnie Blunt MD Other Provider Active Start: October 06, 2024 José Miguel Bowman MD Other Provider Active Start: October 06, 2024 Team Status: Inactive Member Role/Relationship Status Dates Dr. Bridget Swenson MD Primary Care Provider Acti ve Start: October 06, 2024 End: October 09, 2024 Dr. Diana Snow , DO Emergency Provider Active Start: October 06, 2024 End: October 09, 2024 Dr. Juan José Suarez , Admit Provider Active Start: October 06, 2024 End: October 09, 2024 Dr. Juan José Suarez DO Other Provider Active Start: October 06, 2024 End: October 09, 2024 Dr. Santino Haas , Attending Provider Active Start: October 06, 2024 End: October 09, 2024 Team Status: Active Member Role/Relationship Status Dates Dr. Bridget Swenson MD Primary Care Provider Acti ve Start: October 07, 2024 Dr. Diana Snow , Emergency Provider Active Start: October 07, 2024 Dr. Juan José Suarez DO Admit Provider Active Start: October 07, 2024 Dr. Juan José Suarez , DO Other Provider Active Start: October 07, 2024 Dr. Santino Haas , DO Attending Provider Active Start: October 07, 2024 Dr. Santino Haas , DO Other Provider Active Start: October 07, 2024 Team Status: Active Member Role/Relationship Status Dates Dr. Bridget Swenson MD Primary Care Provider Acti ve Start: October 08, 2024 Dr. Diana Snow , DO Emergency Provider Active Start: October 08, 2024 Dr. Juan José Suarez , DO Admit Provider Active Start: October 08, 2024 Dr. Juan José Suarez , DO Other Provider Active Start: October 08, 2024 Dr. Santino Haas , DO Attending Provider Active Start: October 08, 2024 Dr. Santino Haas , DO Other Provider Active Start: October 08, 2024 Team Status: Active Member Role/Relationship Status Dates Dr. Bridget Swenson MD Primary Care Provider Acti ve Start: October 09, 2024 Dr. Diana Snow , DO Emergency Provider Active Start: October 09, 2024 Dr. Juan José Suarez , DO Admit Provider Active Start: October 09, 2024 Dr. Juan José Suarez , DO Other Provider Active Start: October 09, 2024 Dr. Santino Haas , DO Attending Provider Active Start: October 09, 2024 Dr. Santino Haas , DO Other Provider Active Start: October 09, 2024 Team Status: Inactive Member Role/Relationship Status Dates Dr. Bridget Swenosn MD Primary Care Provider Acti ve Start: November 17, 2024 End: November 17, 2024 Dr. Tylor Hendrickson DO Attending Provider Active Start: November 17, 2024 End: November 17, 2024 Dr. Tylor Hendrickson DO Referring Provider Active Start: November 17, 2024 End: November 17, 2024 Dr. Tylor Hendrickson DO Emergency Provider Active Start: November 17, 2024 End: November 17, 2024 Team Status: Inactive Member Role/Relationship Status Dates Dr. Bridget Swenson MD Primary Care Provider Acti ve Start: November 19, 2024 End: November 19, 2024 Dr. Bridget Swenson MD Referring Provider Active Start: November 19, 2024 End: November 19, 2024 Sho Andino NP, MANAGER PHP-C Attending Provider Active Start: November 19, 2024 End: November 19, 2024 Team Status: Inactive Member Role/Relationship Status Dates Dr. Bridget Swenson MD Primary Care Provider Acti ve Start: November 19, 2024 End: November 19, 2024 Sho Andino NP, MANAGER PHP-C Attending Provider Active Start: November 19, 2024 End: November 19, 2024 MIKE Stiles NP Referring Provider Active Start: November 19, 2024 End: November 19, 2024 Team Status: Inactive Member Role/Relationship Status Dates Dr. Bridget Swenson MD Primary Care Provider Acti ve Start: December 17, 2024 End: December 17, 2024 Dr. Bridget Swenson MD Referring Provider Active Start: December 17, 2024 End: December 17, 2024 Sho Andino NP, NP-C Attending Provider Active Start: December 17, 2024 End: December 17, 2024 INFORMATION SOURCE (unrecogn ized section and content) DATE CREATED AUTHOR 05/21/2024 [facility] DATE CREATED AUTHOR AUTHOR'S ORGANIZ ATION 07/08/2024 [facility] DATE CREATED AUTHOR AUTHOR'S ORGANIZ ATION 10/14/2024 [facility] DATE CREATED AUTHOR AUTHOR'S ORGANIZ ATION 11/06/2024 [facility] DATE CREATED AUTHOR AUTHOR'S ORGANIZ ATION 01/26/2025 [facility] Source Comments (unrecognize d section and content) In the event this informatio n is protected by the Federal Confidentiality of Alcohol and Drug Abuse Patient Records regulations: The Federal rules restrict any use of the information to criminally investigate or prosecute any alcohol or drug abuse patient.[facility] the event this information is protected by the Federal Confidentiality of Alcohol and Drug Abuse Patient Records regulations: The Federal rules restrict any use of the information to criminally investigate or prosecute any alcohol or drug abuse patient.[facility] the event this information is protected by the Federal Confidentiality of Alcohol and Drug Abuse Patient Records regulations: The Federal rules restrict any use of the information to criminally investigate or prosecute any alcohol or drug abuse patient.[facility] the event this information is protected by the Federal Confidentiality of Alcohol and Drug Abuse Patient Records regulations: The Federal rules restrict any use of the information to criminally investigate or prosecute any alcohol or drug abuse patient.[facility] the event this information is protected by the Federal Confidentiality of Alcohol and Drug Abuse Patient Records regulations: The Federal rules restrict any use of the information to criminally investigate or prosecute any alcohol or drug abuse patient.[facility] the event this information is protected by the Federal Confidentiality of Alcohol and Drug Abuse Patient Records regulations: The Federal rules restrict any use of the information to criminally investigate or prosecute any alcohol or drug abuse patient.[facility] the event this information is protected by the Federal Confidentiality of Alcohol and Drug Abuse Patient Records regulations: The Federal rules restrict any use of the information to criminally investigate or prosecute any alcohol or drug abuse patient.[facility] the event this information is protected by the Federal Confidentiality of Alcohol and Drug Abuse Patient Records regulations: The Federal rules restrict any use of the information to criminally investigate or prosecute any alcohol or drug abuse patient.[facility] Reason for Visit (unrecogniz ed section and content) Reason Onset Date Comments nsgy DIA-family 05/19/2024 Reason Onset Date Comments nsgy DIA 05/19/2024 Reason Comments Opened In Error Reason Comments Hospital Discharge Reason Comments Altered Mental Status Via [facility] from [facility]. Facility RN reports she woke up yelling/flailing. LKW 2030 when staff put her to bed. Mari URBAN met in [facility] Reason Comments Critical Care Transport Specialty Diagnoses / Procedures Referred By Nelson t Referred To Contact HOSP INPATIENT Diagnoses ICH Procedures [facility] IP/OBS CARE HIGH MDM 75 MINUTES Hosp Main [id number] [place] [address] Referral ID Status Reason Start Date Expiration Date Visits Re quested Visits Authorized [id number] 1 1 Scheduled Active and Recently Administ ered Medications (unrecognized section and content) Medication Order 10/11/2024 10/12/2024 10/13/2024 ciprofloxacin (Cipro) tablet 500 mg (COMPLETED) 500 mg, oral, Once, On Fri10/13/24 at 0040, For 1 dose, Separate at least 2 hours before or 6 hours after antacids or other products containing calcium, iron, or zinc., Dosing of this medication varies based on severity of illness. Does this patient have sepsis or concern for sepsis (probable or documented infection plus systemic manifestations of infection)? No, Suspected Indication (Select all that apply): Urinary Tract Infection, Type of Therapy: Empiric, Type of Urinary Tract Infection: Uncomplicated, Indications: Urinary Tract Infection 0044 (Given - Provid er: Maria Luz Sands RN) LORazepam (Ativan) injection 1 mg (COMPLETED) 1 mg, intramuscular, Administer over 5 Minutes, Once, On Fri10/12/24 at 2325, For 1 dose 2331 (Given - Provider: Maria Luz Sands RN) FOR RECORDS PERTAINING TO PATIENTS WHO ARE [...] BE BASED ON THE PRIMARY CLINICAL RECORDS. [employer] [facility]. provides no warranty or guarantee of the accuracy or completeness of information in this document.
[2025-01-28 07:39] LABS: Hematocrit 29.0 % (37-47); Hemoglobin 8.8 g/dL (12.0-15.0); Mean Corp Hgb Conc 30.3 g/dL (32-36); Mean Corpuscular Volume 90.6 fL (81-99); Mean Platelet Vol. 10.1 fl (6.2-12.0); Platelet Count 290 K/mm3 (150-450); RBC Distribution Width CV 14.6 % (11.6-14.6); RBC Distribution Width SD 48.7 fl (35.1-43.9); Red Blood Count 3.20 M/mm3 (4.2-5.4); White Blood Count 6.3 K/mm3 (4.4-11.0)
[2025-01-28 08:08] LABS: Ferritin 47 ng/mL (22-378); Magnesium 2.4 mg/dL (1.5-2.2)
[2025-01-28 08:09] LABS: Anion Gap 12 (5-15); BUN 24 mg/dL (4-19); BUN/Creat Ratio 27.0 RATIO (10-20); Calcium,Total 9.4 mg/dL (7.6-11.0); Carbon Dioxide 26.6 mmol/L (21.0-32.0); Chloride 97 mmol/L (98-108); Glucose 98 mg/dL (70-99); Potassium 4.2 mmol/L (3.3-5.1)
== END ==
PROVIDERS: PCP Family Medicine; Visit Provider Family Medicine
DX: I10 Essential (primary) hypertension (principal); E78.5 Hyperlipidemia, unspecified; D50.9 Iron deficiency anemia, unspecified; J44.9 Chronic obstructive pulmonary disease, unspecified; G25.81 Restless legs syndrome; I48.91 Unspecified atrial fibrillation
CPT/HCPCS: 36415; 80048; 82728; 83735; 85027

== ENCOUNTER → 2025-01-28 13:30 | Outpatient (REF) | payer MEDICARE, BC, SELFPAY ==
[2025-01-28 15:49] LABS: Color, Urine Straw (Yellow); Glucose, Dipstick Normal (Normal); Ketone-Dipstick Negative (Negative); Leukocyte Esterase-Dipstick Negative /ul (Negative); Nitrite-Dipstick Negative (Negative); Occult Blood-Urine Negative /ul (Negative); Protein-Dipstick 30 mg/dl (Negative); Specific Gravity, Urine 1.010 (1.002-1.030); Urine Bilirubin Dipstick Negative (Negative)
== END ==
PROVIDERS: PCP Family Medicine; Visit Provider Family Medicine
DX: R82.90 Unspecified abnormal findings in urine (principal)
CPT/HCPCS: 81002; 87086; 87088

== ENCOUNTER → 2025-02-22 | Outpatient (CLI) | payer MEDICARE, BC, SELFPAY ==
[2025-02-22 15:29] LABS: Hematocrit 35.5 % (37-47); Hemoglobin 11.1 g/dL (12.0-15.0); Mean Corp Hgb Conc 31.3 g/dL (32-36); Mean Corpuscular Volume 88.8 fL (81-99); Mean Platelet Vol. 10.2 fl (6.2-12.0); Platelet Count 349 K/mm3 (150-450); RBC Distribution Width CV 14.2 % (11.6-14.6); RBC Distribution Width SD 46.0 fl (35.1-43.9); Red Blood Count 4.00 M/mm3 (4.2-5.4); White Blood Count 7.1 K/mm3 (4.4-11.0)
[2025-02-22 15:56] LABS: Ferritin 61 ng/mL (22-378); Magnesium 2.3 mg/dL (1.5-2.2); Pro- Brain NATRIURETIC PEPTIDE 1468 pg/mL (<=1800)
== END | disposition home or self-care (01) ==
LOC: MFPLAB 12:13
PROVIDERS: PCP Family Medicine; Visit Provider Family Medicine
DX: G25.81 Restless legs syndrome (principal); M79.89 Other specified soft tissue disorders
CPT/HCPCS: 36415; 82728; 83735; 83880; 85027

== ENCOUNTER → 2025-03-04 | Outpatient (REF) | payer MEDICARE, BC, SELFPAY ==
--- OUTSIDE RECORDS SUMMARY | 2025-03-04 04:28 | XMS RPT_ITS | CCD ---
Author Organization 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 Doyle Swenson Referring Provider Adriana LUBE TECHNICIAN, LUBE TECHNICIAN-Jing Lombardi Attending Provider Dr. Doyle Swenson Primary Care Provider [phone] Francy LUBE TECHNICIAN, LUBE TECHNICIAN-Jing Arce Attending Provider Dr. Doyle Swenson Primary Care Provider Dr. Doyle Swenson Referring Provider Adriana LUBE TECHNICIAN, LUBE TECHNICIAN-C Nallely Lombardi Attending Provider [phone] Dr. [phone] Dr. Doyle Swenson Referring Provider Adriana LUBE TECHNICIAN, LUBE TECHNICIAN-C Nallely Lombardi Attending Provider [phone] [facility] LUBE TECHNICIAN, LUBE TECHNICIAN-C Tarik Arce Attending Provider Dr. Tylor Hendrickson [...] Dr. Doyle Swenson Primary Care Provider Tickchristi LUBE TECHNICIAN, LUBE TECHNICIAN-C Richa Attending Provider Dr. Doyle Ortega Primary [...] Provider Dr. Hood Maza Other Provider Tickchristi LUBE TECHNICIAN, LUBE TECHNICIAN-C Richa Attending Provider Dr. Doyle Ortega Primary Care Provider Tickton LUBE TECHNICIAN, LUBE TECHNICIAN-C Richa Attending Provider Dr. Doyle Ortega Primary Care Provider Dr. Evin Mora Attending Provider Dr. Doyle Swenson Referring Provider Dr. Doyle Swenson Primary Care Provider Dr. Evin Mora Attending Provider Dr. Doyle Swenson Referring Provider Dr. Bridget Swenson Primary Care Provider [phone] Dr. Tylor Fang Attending Provider DUGLAS KIM Attending Unavailable DUGLAS KIM Admitting Unavailable TYLOR HENDRICKSON Referring Unavailable Bridget Swenson MD Primary Care Provider Mary Thorpe MD, PhD, Cari Unavailable [phone] JESSA RETANA Attending Unavailable BRIDGET SWENSON Primary Care Unavailabl e BRIDGET SWENSON Primary Care Unavailabl e AYAZ DOE Admitting Unavailable WALLY ZIEGLER Attending Unavailable GILL ADORNO Consulting Unavailable Leela URBAN, Dr. Savage Primary Care Provider Dr. Vinayak Mendenhall MD Attending Provider Dr. Vinayak Mendenhall MD Referring Provider Dr. Tylor Fang MD Attending Provider [phone] Bridget Swenson MD Attending Provider [phone] Dr. Bridget Swenson MD Referring Provider [phone] Dr. Tylor Hendrickson DO Attending Provider Dr. [...] Ginny URBAN, Dr. Wilkinson Other Provider Mingo LUBE TECHNICIAN-C, Sofia Other Provider Unavailabl e Lizzette LUBE TECHNICIAN-C, Monik Other Provider [phone] Min PA, Nelsy Other Provider Leela URBAN, Dr. Savage Primary Care Provider Leoncio URBAN, Dr. Snider Attending Provider Leela URBAN, Dr. Savage Attending Provider [phone] Leela URBAN, Dr. Savage Referring Provider [facility] LUBE TECHNICIAN-C, Tarik Attending Provider Mary Jane SIMMONS, Dr. [...] Provider Loida URBAN, Dr. Nur Other Provider [phone] Jose Raul URBAN, Dr. Nicole Other Provider Unavailable Colby URBAN, José Miguel Other Provider Unavailable Nate URBAN, Dr. Soto Attending Provider Abby URBAN, Dr. Cleary Attending Provider Nate URBAN, Dr. Soto Other Provider [phone] Scooby Mobley DO Emergency Provider Dr. Juan José Suarez DO Admit Provider Unavail able Dr. Juan José Suarez DO Other Provider Unavail able Zackary Lyon MD Attending Provider Unavaila Dr. Diana Love DO Emergency Provider Dr. Juan José Suarez DO Attending Provider Unav ailable Zackary Lyon MD Referring Provider Unavaila Dr. Ayaz Ruelas DO Attending Provider Dr. Santino Haas DO Attending Provider Dr. Santino Haas DO Other Provider Generic Provider , No Assigned Pcp Primary Car e Provider Unavailable Bridget Swenson MD Primary Care Provide r Unavailable Primary Care Provider Unavailabl Dr. Bridget Serrano MD Primary Care Provider Rolando URBAN, Dr. Aleks West Admit Provider [phone] Rolando URBAN, Dr. Aleks West Attending Provider Leela URBAN, Dr. Savage Referring Provider [phone] Meenakshi FRANKS-CRicha Attending Provider Sonali URBAN, Dr. Raymundo Attending Provider NICHOLE GUERRA Attending Unavailable BRIDGET SWENSON [facility] Primary Care Unavail able Elizabet SIMMONS, Dr. Snider Referring Provider Elizabet SIMMONS, Dr. Snider Emergency Provider Sina MCKEON, Sho Attending Provider Leela URBAN, Dr. Savage Primary Care Provider Elizabet SIMMONS, Dr. Snider Attending Provider Leela URBAN, Dr. Savage Referring Provider Sina LUBE TECHNICIAN-C, Sho Referring Provider Tylor Hendrickson Attending [facility] Unavailable Rolando, Aleks Chi Attending Unavailable Rolando, Aleks Chi Referring Unavailable [facility] Primary [facility] Unavailable Juan José Suarez Admitting Unavailable Juan José Suarez Consulting [facility] Unavailable Charles Sullivan Attending [facility]available [facility] Unavailable Juan José Marshall Consulting Unavailable Rolando, Aleks Chi Attending Unavailable Rolando, Aleks Chi Admitting Unavailable Marisol Prather Consulting Unavailable Jaja Gross Consulting Unavailable Sofia Aguila Consulting Unavailable Lizzette FRANKS, Monik Consulting Unavailable Nlesy Copeland Consulting Unavailable Juan José Suarez Admitting Unavailable Juan José Suarez Consulting Unavailable Santino Haas Attending Unavailable [facility]elaSt[facility]ari Primary Care Unavailable Ayesha Choi Consulting Unavailable Adematt, Jean Carlos Consulting Unavailable Hinduja, Mary Consulting Unavailable Delonte Clementine Consulting Unavailable Emily, Emmie Consulting Unavailable Adarsh, Mega Consulting Unavailable Otilio, Fay Consulting Unavailable Robert Castillo Consulting Unavailable Camilo Abernathy Consulting Unavailable John Ye Consulting Unavailable Rola Campos Consulting Unavailable Gertrudis Mckee Consulting Unavailable Giselle Wheatley Consulting Unavailable Abram Coronel Consulting Unavailable Lizeth Jules Consulting UnavailDuglas Ware Consulting Unavailable Rayna Jordan Consulting Unavailable Boom Mariscal Consulting Unavailable Bonnie Blunt Consulting Unavailable José Miguel Bowman Consulting Unavailable Santino Haas Consulting Unavailable Rolando, Aleks Chi Consulting Unavailable Joyce Rousseau Attending Unavaila ble Rolando, Aleks Chi Admitting Unavailable [facility] Primary Care Unavailable Joyce Rousseau Consulting Unavaila ble [place] Referring Unavailable [facility] Primary Care Unavailable Bridget Swenson Attending Unavailable Rolando, Aleks Chi Attending Unavailable Rolando, Aleks Chi Referring Unavailable [facility] Primary Care Unavailable Bridget Marquez Attending Unavaila ble [facility] Unavailable Bridget Marquez Attending Unavaila ble [facility] Primary Care Unavailable Bridget Swenson Attending Unavailable [facility] Primary Care Unavailable Rolando, Aleks Chi Attending Unavailable Rolando, Aleks Chi Referring Unavailable [facility] Primary Care Unavailable Vinayak Mendenhall Referring Unavailable Vinayak Mendenhall Attending Unavailable [place], [place] Primary Care Unavailable Ranney, Christopher Referring Unavailable Leela, Bridget Attending Unavailable [facility] Primary Care Unavailable Tylor Hendrickson Attending Unavailable Schwpete Tylor Referring Unavailable [facility], [place] Primary Care Unavailable [facility] Unavailable Ayaz Hinton Attending Unavailable [facility] Primary Care Unavailable Oleletty GUTIERREZ Efewongbe Referring Unavailabl e Sonali GUTIERREZ Efewongbe Attending Unavailabl e Bridget Marquez Attending Unavaila ble [place], [place] Primary Care Unavailable Bridget Swenson Attending Unavailable [place], Christtonyaer Referring Unavailable [facility] Primary Care Unavailable [facility] Primary Care Unavailable Charles Sullivan Attending Unavailable Layla Craig Admitting Unavailable Ayesha Choi Consulting Unavailable Adeli, Amir Consulting Unavailable Hinduja, Mary Consulting Unavailable Delonte, Clementine Consulting Unavailable Zha, Emmie Consulting Unavailable Adarsh, Mega Consulting Unavailable Otilio, Fay Consulting Unavailable Bittar, Robert Consulting Unavailable Camilo Abernathy Consulting Unavailable Ye, John Consulting Unavailable Beigel, Rola Consulting Unavailable Gusler, Gertrudis Consulting Unavailable Dioni, Giselle Consulting Unavailable Ridha, Mohamed Consulting Unavailable Zaghlouleh, Mhd Leander Consulting UnavailDuglas Ware Consulting Unavailable Jordan, Rami Consulting Unavailable Loida, Boom Consulting Unavailable Jose Raul, Bonnie Consulting Unavailable Hannawi, Yousef Consulting Unavailable Craig, Layla Consulting Unavailable Richa Arrieta NP Attending Unavailable [facility] Care Unavailable Zackary Lyon Attending Unavailable [facility] Unavailable [facility] Referring Unavailable [facility] Unavailable Tarik Sen Attending Unavailable [facility] Referring Unavailable Sho Andino Attending Unavailable [facility] Unavailable [facility] Unavailable Evin Mora Attending Unavailable Aleks Marshall Chi Referring Unavailable Tylor Fang Attending Unavailable [facility] Unavailable Vinayak Mendenhall Referring Unavailable Tylor Fang Attending Unavailable [facility] Unavailable Juan José Suarez Consulting Unavailable Juan José Suarez Admitting Unavailable Santino Haas Attending Unavailable [facility] Unavailable Santino Haas Consulting Unavailable Ayesha Choi Consulting Unavailable [facility] Unavailable Layla Craig Attending Unavailable Layla Craig Admitting Unavailable Adeli, Amir Consulting Unavailable Hinduja, Mary Consulting Unavailable Delonte, Clementine Consulting Unavailable Zha, Emmie Consulting Unavailable Adarsh, Mega Consulting Unavailable Otilio, Fay Consulting Unavailable Robert Castillo Consulting Unavailable Camilo Abernathy Consulting Unavailable Ye, John Consulting Unavailable BeHyun austinaret Consulting Unavailable GusGracie medinaew Consulting Unavailable Dioni, Giselle Consulting Unavailable Ridha, Mohamed Consulting Unavailable Zamonicaloroosevelth, Mhd Leander Consulting UnavailDuglas Ware Consulting Unavailable Jordan, Rami Consulting Unavailable Loida, Boom Consulting Unavailable Jose Raul, Bonnie Consulting Unavailable Hannawi, Yousef Consulting Unavailable Craig, Layla Consulting Unavailable Charles Sullivan Attending Unavailable Charles Sullivan Consulting Unavailable Juan José Suarez Admitting Unavailable Juan José Suarez Consulting Unavailable Juan José Suarez Attending Unavailable [facility] Unavailable Charles Sullivan Attending Unavailable Charles Sullivan Consulting Unavailable Juan José Suarez Attending Unavailable [facility] Referring Unavailable Sho Andino Attending Unavailable [facility] Unavailable Juan José Suarez Admitting Unavailable Juan José Suarez Consulting Unavailable [facility] Unavailable Santino Haas Attending Unavailable Rolando, Aleks Chi Admitting Unavailable Rolando, Aleks Chi Consulting Unavailable Joyce Rousseau Attending Unavaila ble [facility] Unavailable [facility] Unavailable Horace Horta Attending Unavailable Rolando, Aleks Chi Attending Unavailable Rolando, Aleks Chi Admitting Unavailable [facility] Unavailable Sho Andino Attending Unavailable Sho Andino Referring Unavailable [facility] Unavailable Allergies Allergy Classification Reported Allergen(s) Allergy Type Date of Onset Reaction(s) Facility (20 sources) eggplant extract; 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: [EGGPLANT] Drug Allergy 7 Hives [facility] Work Phone: [phone] (3 sources) gabapentin Drug Allergy 4 unknown [facility] Work Phone: [phone] (3 sources) meloxicam; 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: [MOBIC] Drug Allergy 4 unknown [facility] Work Phone: [phone] (20 sources) mold extract; 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: [MOLD] Drug Allergy 4 Hives [facility] Work Phone: [phone] (3 sources) penicillin; 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: [PENICILLIN] Drug Allergy 1 hives [facility] Work Phone: [phone] (3 sources) risedronate Drug Allergy 4 unknown [facility] Work Phone: [phone] (20 sources) Silk; 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: [SILK] allergy to substance 4 unknown, itching [facility] Work Phone: [phone] (3 sources) wheat; 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: [WHEAT] food allergy 1 hives/swelling [facility] Work Phone: [phone] (13 sources) BEETS; 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: [BEETS] food allergy 2 Rash [facility] Work Phone: [phone] (8 sources) CANTALOPE; 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: [CANTALOPE] food allergy 4 hives [facility] Work Phone: [phone] (3 sources) MULTIPLE FOOD ALLERGIES; 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: [MULTIPLE FOOD ALLERGIES] food allergy 1 hives/swelling [facility] Work Phone: [phone] (12 sources) PROCESSED FOODS; 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: [PROCESSED FOODS] food allergy 1 hives/swelling, Hives [facility] Work Phone: [phone] (20 sources) Beets preparation Drug Allergy 2 [facility] (20 sources) cantaloupe allergenic extract; 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: [CANTALOUPE] Drug Allergy 7 [facility] (20 sources) gabapentin; 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: [GABAPENTIN] Drug Allergy 1 Other: See Comments [facility] (20 sources) levoFLOXacin Drug Allergy 2 Unknown [facility] (20 sources) meloxicam; 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: [MELOXICAM] Drug Allergy 1 Other: See Comments [facility] (20 sources) oxyCODONE Drug Allergy 2 Nausea [facility] (20 sources) Penicillins; 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: [PENICILLINS] Allergy to substance 4 Unknown [facility] (20 sources) Risedronate; 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: [RISEDRONATE SODIUM] Drug Allergy 8 GI Upset [facility] (20 sources) tomato allergenic extract Drug Allergy 2 Food Allergy [facility] (20 sources) Wheat preparation Drug Allergy 2 [facility] (20 sources) CONCENTRATES Allergy to substance 2 [facility] (11 sources) fermented foods Allergy to substance 2 Itching [facility] (20 sources) ceFAZolin Drug Allergy 2 Swelling [facility] (20 sources) Food Allergies: Uncoded; Translations: [Food Allergies: Uncoded] Allergy to substance 3 Itching [facility] (10 sources) Alendronate; Translations: [ALENDRONATE SODIUM] Drug Allergy 8 GI Upset [facility] Repository (10 sources) pork allergenic extract; Translations: [PORK] Drug Allergy 1 Intolerance [facility] (10 sources) Wheat gluten extract; Translations: [WHEAT GLUTEN] Drug Allergy 7 Hives [facility] (10 sources) SUTURES; Translations: [SUTURES] Propensity to adverse reactions (disorder) 3 Itching [facility] (10 sources) ADHES. [id number] KONIUM; Translations: [ADHES. [id number] KONIUM] Propensity to adverse reactions to drug (disorder) 8 [facility] Rep[facility] (10 sources) YEAST, DRIED; Translations: [YEAST, DRIED] Propensity to adverse reactions to drug (disorder) [facility] (1 source) Buttermilk; Translations: [BUTTERMILK] Propensity to adverse reactions to food (disorder) 5 [facility] Repository (1 source) Cheese; Translations: [CHEESE] Propensity to adverse reactions to drug (disorder) 5 [facility] Rep[facility] (1 source) latif allergenic extract; Translations: [LATIF] Drug Allergy 5 [facility] Repository (13 sources) Shellfish; Translations: [SHELLFISH DERIVED] Propensity to adverse reactions to drug (disorder) 5 [facility] Repository (1 source) CRANBERRY FRUIT CONCENTRATE; Translations: [CRANBERRY FRUIT CONCENTRATE] Propensity to adverse reactions to drug (disorder) 5 [facility] Repository (1 source) SOYBEAN, FERMENTED; Translations: [SOYBEAN, FERMENTED] Propensity to adverse reactions to drug (disorder) 5 [facility] Repository (1 source) TOMATOES; Translations: [TOMATOES] Propensity to adverse reactions to food (disorder) 5 [facility] Repository (11 sources) DULoxetine Drug Allergy 4 [facility] (1 source) Beets preparation Drug Allergy 5 [facility] (1 source) cantaloupe allergenic extract Drug Allergy 5 [facility] (1 source) ceFAZolin Drug Allergy 5 [facility] (1 source) DULoxetine Drug Allergy 5 [facility] (1 source) gabapentin Drug Allergy 5 [facility] (1 source) levoFLOXacin Drug Allergy 5 [facility] (1 source) meloxicam Drug Allergy 5 [facility] (1 source) oxyCODONE Drug Allergy 5 [facility] (1 source) Risedronate Drug Allergy 5 [facility] (1 source) tomato allergenic extract Drug Allergy 5 [facility] (1 source) Wheat preparation Drug Allergy 5 [facility] Medications Current Medications Medication Drug [...] 1 TABLET PO EVERY 4 HOURS NEEDED 18 3 March 12, 2022 January 28, 2023 2:21pm Start: [...] TABS One tablet by mouth daily ASPIRIN [id number] Evin Mora MD Start: 07-29-2013 take 1 tablet by onofre th once daily ASPIRIN 81 MG TABS One tablet by mouth daily ASPIRIN [id number] Evin Mora MD Start: 07-29-2013 End: 02-12-2022 [...] 1000 UNIT CAPS 1 tab daily CHOLECALCIFEROL [id number] Maia ABDALLA Start: 01-17-2011 End: 07-29-2013 VITAMIN D 1000 UNIT CAPS 1 t ab daily CHOLECALCIFEROL [id number] Tana Gomez, ALBERT take 2 capsules by [...] left eye 4 times daily CIPROFLOXACIN HCL [id number] Cassandra Ramos RN Start: 07-29-2013 CILOXAN 0.3 % SOLN 1 dropp left eye 4 times daily CIPROFLOXACIN HCL [id number] Tana Gomez RN CPAP (3 sources) Start: [...] End: 02-12-2022 take 1 capsule by mo [facility] once daily docusate sodium (Colace) 100 mg [...] 21, 2018 11:16am take 1 tablet by [facility] twice daily furosemide (LASIX) 40 mg [...] ACETAMINOPHEN 325 MG TABS as needed ACETAMINOPHEN [id number] Tana Gomez RN Start: 11-06-2007 End: 11-05-2023 [...] One tablet by mouth daily AMLODIPINE BESYLATE [id number] Evin Mora MD atenolol 50 mg oral [...] Atenolol Discontinued 50 MG PO EVERY EVENING November 13, 2017 12:00am March 22, 2018 12:18pm Patient is taking 25 mg tablet in the morning and 50mg tablet in the evening Start: 07-29-2013 take 1 tablet by onofre th once daily TENORMIN 50 MG TABS One tablet by mouth daily ATENOLOL [id number] Evin Mora MD Start: 02-26-2013 End: 03-22-2018 [...] by mouth 2-3 times per day CALCIUM [id number] Maia ABDALLA calcium carbonate 1500 mg / [...] tablet by mouth daily CALCIUM CARBONATE-VITAMIN D [id number] Tana Gomez RN chlorthalidone 50 mg oral tablet (9 sources) Thiazide-like Diuretic Start: 09-03-2024 End: 10-03-2024 clonazePAM 0.5 mg oral tablet (11 sources) Benzodiazepine Start: 05-28-2024 End: 06-08-2024 cyclobenzaprine hydrochloride 5 mg oral tablet (20 sources) Muscle Relaxant Start: 02-11-2022 End: 03-12-2022 Start: 03-14-2016 End: 09-27-2016 take 1 tablet by mouth once daily CYCLOBENZAPRINE HCL 5 MG TABS One tablet by mouth daily CYCLOBENZAPRINE HCL [id number] Evin Mora MD 1 ml denosumab 60 mg/ml prefilled syringe (20 sources) RANK Ligand Inhibitor Start: 06-15-2024 End: 06-15-2024 inject 1 mL by subcutaneous injection once denosumab (PROLIA) 60 mg/mL Inject 1 mL subcutaneously one time only for 1 dose. 1 mL 06/15/2024 06/15/2024 Start: 10-08-2019 End: 07-25-2021 docusate sodium 50 mg / paige osides, detention 8.6 mg oral tablet (20 sources) Start: [...] CAPS 1 tab by mouth daily GABAPENTIN [id number] Tana Gomez RN hydroCHLOROthiazide 25 mg or al tablet (20 sources) Thiazide Diuretic Start: 07-21-2018 End: 01-19-2019 Start: 08-11-2014 take 1 tablet by onofre th once daily HYDROCHLOROTHIAZIDE 12.5 MG TABS One tablet by mouth daily HYDROCHLOROTHIAZIDE [id number] Yenny Buckley PA-C Start: 08-11-2014 End: 03-14-2016 HYDROCHLOROTHIAZIDE 12.5 MG TABS as needed three times per week HYDROCHLOROTHIAZIDE [id number] Evin Mora MD lidocaine 0.05 mg/mg medicated patch (20 sources) Antiarrhythmic, Amide Local Anesthetic Start: 06-08-2024 End: 08-30-2024 Start: 05-16-2024 apply 1 dose transde rmal route once daily lidocaine (SALONPAS) 4 % patch Apply 1 Patch as directed once daily. 05/16/2024 Suspended Start: 05-16-2024 End: 06-08-2024 Start: 05-14-2024 End: 05-14-2024 X (OR/PROCEDURE) PRN, Starti ng on Fri05/14/24 at 1147, Until Fri05/14/24 at 1147, Intraprocedure lisinopril 10 mg oral tablet (6 sources) Angiotensin Converting Enzyme Inhibitor Start: 01-17-2011 End: 07-29-2013 take 1 tablet by mouth once daily in the morning LISINOPRIL 10 MG TABS 1 tab by mouth daily in am LISINOPRIL [id number] Tana Gomez, ALBERT 1 ml LORazepam 2 mg/ml injection (2 [...] One tablet by mouth daily LOSARTAN POTASSIUM [id number] Evin Mora MD Start: 07-29-2013 take 1 tablet by onofre th once daily COZAAR 25 MG TABS One tablet by mouth daily LOSARTAN POTASSIUM [id number] Evin Mora MD magnesium chloride 598 mg [...] Magnesium Hydroxide Active 30 ML PO DAILY 0 February 11, 2022 12:00am magnesium oxide 420 [...] 2022 12:00am January 28, 2023 2:18pm Start: 01-01-2022 take 0.5 mg by mouth twice [...] TABS One tablet by mouth daily SPIRONOLACTONE [id number] Evin Mora MD tamsulosin hydrochloride 0.4 mg oral capsule (20 sources) alpha-Adrenergic Sera Start: 05-28-2024 End: 08-30-2024 28 actuat teriparatide 0.02 mg/actuat pen injector (6 sources) Parathyroid Hormone Analog Start: 01-17-2011 End: 07-29-2013 FORTEO 600 MCG/2.4ML SOLN nosespray daily TERIPARATIDE (RECOMBINANT) [id number] Tana Gomez RN traMADol hydrochloride 50 mg oral tablet (20 sources) Opioid Agonist Start: 06-08-2024 End: 09-18-2024 Start: 02-09-2022 End: 02-11-2022 Start: 01-17-2011 End: 07-29-2013 ULTRAM 50 MG TABS 1 tab by m out as needed for pain TRAMADOL HCL [id number] Tana Gomez, ALBERT take 1 tablet by onofre th every six hours as needed traMADol (ULTRAM) 50 mg tablet Take 50 mg by mouth every 6 hours as needed for pain. Suspended vitamin d 1000 unt oral tablet (3 sources) Start: 03-10-2015 take 1 tablet by mouth once daily VITAMIN D 1000 UNIT TABS One tablet by mouth daily CHOLECALCIFEROL [id number] Evin Mora MD warfarin sodium 3 mg [...] One tablet by mouth daily WARFARIN SODIUM [id number] Jaiden Winston MD Start: 11-06-2015 End: 05-18-2017 Start: 11-06-2015 End: 05-18-2017 Warfarin Discontinued 5 MG P O SRIVASTAVA November 06, 2015 12:00am May 18, 2017 2:33pm Start: 11-06-2015 End: 05-18-2017 Start: 08-26-2015 End: 05-18-2017 Start: 08-26-2015 End: 05-18-2017 Warfarin Discontinued 4 MG P O MANDAUWETHFRSA August 26, 2015 12:00am May 18, 2017 2:33pm Start: 08-08-2015 COUMADIN 6 MG TABS 6 mg tablet on Sat and Sun, take 4mg tablet Friday through Friday WARFARIN SODIUM [id number] Evin Mora MD Start: 08-08-2015 COUMADIN 6 MG TABS Take as directed: Current dose: Take one tablet by mouth for one day and 4mg other days WARFARIN SODIUM [id number] Evin Mora MD Start: 11-17-2013 take 1 tablet by onofre th once daily COUMADIN 4 MG TABS One tablet by mouth daily except take 6 mg every Friday (1.5 tablets) WARFARIN SODIUM [id number] Evin Mora MD take 1 tablet by [...] [Paroxysmal atrial fibrillation] Onset: 08-12-2013 08-12-2013 Chronic Chronic obstructive pulmonary disease and bronchiectasis (1 source) Chronic obstructive pulmonary disease, unspecified; Translations: [Chronic obstructive pulmonary disease, unspecified] Onset: 02-11-2025 Chronic Conditions associated with dizziness or vertigo (11 sources) Dizziness; Translations: [Dizziness and giddiness] 07-04-2024 Episodic Conduction disorders (20 sources) Incomplete right bundle branch block; Translations: [Unspecified right bundle-branch block] 10-07-2019 Chronic Deficiency and other anemia (20 sources) Iron deficiency anemia; Translations: [Iron deficiency anemia, unspecified] 02-11-2022 Episodic Deficiency and other anemia (18 sources) Iron deficiency anemia, unspecified; Translations: [Iron deficiency anemia, unspecified] Onset: 02-11-2025 Episodic Delirium, dementia, and amnestic and other [...] hemorrhage (20 sources) Hematemesis; Translations: [Hematemesis] Episodic Genitourinary symptoms and ill-defined conditions (20 sources) Retention of urine; Translations: [Retention of urine, unspecified] Onset: 06-01-2024 05-31-2024 Episodic Headache; including migraine (20 sources) Headache; [...] Translations: [Noninfective gastroenteritis and colitis, unspecified] Episodic Nutritional deficiencies (20 sources) Vitamin D deficiency; Translations: [Vitamin D deficiency, unspecified] Onset: 05-13-2024 Resolved: 05-16-2024 Chronic Osteoarthritis (1 source) Bilateral primary osteoarthritis of knee; Translations: [Bilateral primary osteoarthritis of knee] Onset: 10-13-2024 Chronic Osteoporosis (20 sources) Osteoporosis; Translations: [Age-related osteoporosis without current pathological fracture] Onset: 01-30-2005 Chronic Other aftercare (20 sources) Long-term current use of anticoagulant; Translations: [alf (current) use of anticoagulants] Onset: 05-11-2024 07-24-2021 [...] transverse process of lumbar vertebra, initial encounter ([facility])] Onset: 06-27-2024 Episodic Other fractures (20 sources) [...] syndrome; Translations: [Restless legs syndrome (RLS)] Onset: 02-11-2025 Chronic Other injuries and conditions due to external causes (11 sources) Angioedema; Translations: [Angioneurotic edema, initial encounter] 11-13-2023 Episodic Other lower respiratory disease (20 sources) Dyspnea on exertion; Translations: [Dyspnea, unspecified] 04-05-2020 Episodic Other lower respiratory disease (13 sources) Other forms of dyspnea; Translations: [Other respiratory abnormalities] Episodic Other lower respiratory disease (1 source) [...] 06-01-2024 06-07-2024 Episodic Deficiency and other anemia (1 source) [...] unspecified, initial encounter] Onset: 06-27-2024 06-27-2024 Episodic Malaise and fatigue (20 sources) Malaise and fatigue; Translations: [Asthenia] Onset: 08-11-2014 08-11-2014 Episodic Nonspecific chest pain (8 sources) Chest discomfort; Translations: [Other chest pain] Onset: 11-23-2024 5 Episodic Other aftercare (1 source) 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; Translations: [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] Onset: 06-01-2024 Episodic [...] Onset: 07-08-2024 Episodic Other lower respiratory disease (3 sources) Dyspnea, unspecified; Translations: [Other respiratory abnormalities] Onset: 11-19-2024 Episodic Other lower respiratory disease (8 sources) [...] Test Name Value Interpretation Reference Range Facility CBC-Complete Blood Cnt No Di ffon 02-22-2025 Erythrocyte distribution width (RBC) [Ratio] 14.2 % Normal 11.6-14.6 [facility] Comment on above: Order Comment: Order Date: 01/14/25Order Info: [id number] - CBC Performed By: #### L 501.5200, L503.6550, L100.0500 ####[facility] [address] [place], [address] Hematocrit (Bld) [Volume fraction] 35.5 % Low 37-47 [facility] Comment on above: Order Comment: Order Date: 01/14/25Order Info: [id number] - CBC Performed By: #### L 501.5200, L503.6550, L100.0500 ####[facility] [address] [place], [address] Hemoglobin (Bld) [Mass/Vol] 11.1 g/dL Low 12.0-15.0 [facility] Comment on above: Order Comment: Order Date: 01/14/25Order Info: [id number] - CBC Performed By: #### L 501.5200, L503.6550, L100.0500 ####[facility] [address] [place], [address] MCH (RBC) [Entitic mass] 27.8 pg Normal 27.0-32.0 [facility] Comment on above: Order Comment: Order Date: 01/14/25Order Info: [id number] - CBC Performed By: #### L 501.5200, L503.6550, L100.0500 ####[facility] [address] [place], [address] MCHC (RBC) [Mass/Vol] 31.3 g/dL Low 32-36 [facility] Comment on above: Order Comment: Order Date: 01/14/25Order Info: [id number] - CBC Performed By: #### L 501.5200, L503.6550, L100.0500 ####[facility] [address] [place], [address] MCV (RBC) [Entitic vol] 88.8 fL Normal 81-[address] [facility] Comment on above: Order Comment: Order Date: 01/14/25Order Info: [id number] - CBC Performed By: #### L 501.5200, L503.6550, L100.0500 ####[facility] [address] [place], [address] Platelet mean volume (Bld) [Entitic vol] 10.2 fL Normal 6.2-12.0 [facility] Comment on above: Order Comment: Order Date: 01/14/25Order Info: [id number] - CBC Performed By: #### L 501.5200, L503.6550, L100.0500 ####[facility] [address] [place], [address] Platelets (Bld) [#/Vol] 349 10*3/uL Normal 150-450 [facility] Comment on above: Order Comment: Order Date: 01/14/25Order Info: [id number] - CBC Performed By: #### L 501.5200, L503.6550, L100.0500 ####[facility] [address] [place], [address] RBC (Bld) [#/Vol] 4.00 10*6/uL Low 4.2-5.[address] [facility] Comment on above: Order Comment: Order Date: 01/14/25Order Info: [id number] - CBC Performed By: #### L 501.5200, L503.6550, L100.0500 ####[facility] [address] [place], [address] RDW SD 46.0 fl High 35.1-43.9 [facility] Comment on above: Order Comment: Order Date: 01/14/25Order Info: [id number] - CBC Performed By: #### L 501.5200, L503.6550, L100.0500 ####[facility] [address] [place], [address] WBC (Bld) [#/Vol] 7.1 10*3/uL Normal 4.4-11.[address] [facility] Comment on above: Order Comment: Order Date: 01/14/25Order Info: [id number] - CBC Performed By: #### L 501.5200, L503.6550, L100.0500 ####[facility] [address], [address] Ferritinon 02-22-2025 Ferritin [Mass/Vol] 61 ng/mL Normal 22-[address] [facility] Comment on above: Order Comment: PER I NTERFACE COMMENT-BTNPOrder Date: 01/14/25Order Info: - MGOrder Info: [id number] - OSCAR Performed By: #### L 501.5200, L503.6550, L100.0500 ####[facility] [address] [place], [address] Magnesiumon 02-22-2025 Magnesium [Mass/Vol] 2.3 mg/dL High 1.5-2.2 [facility] Comment on above: Order Comment: PER I NTERFACE COMMENT-BTNPOrder Date: 01/14/25Order Info: - MGOrder Info: [id number] - OSCAR Performed By: #### L 501.5200, L503.6550, L100.0500 ####[facility] [address] [place], [place], [address] Pro- Brain NATRIURETIC PEPTI Arlen 02-22-2025 Natriuretic peptide B (Bld) [Mass/Vol] 1468 pg/mL Normal <=1800 [facility] Comment on above: Order Comment: PER I NTERFACE COMMENT-BTNPOrder Date: 01/14/25Order Info: - MGOrder Info: [id number] - OSCAR Result Comment: Hear t Failure Unlikely: < 300 pg/mLHeart Failure Likely< 50 Years: > 450 pg/mL50-75 Years: > 900 pg/mL>75 Years: > 1800 pg/mL Performed By: #### L 503.7505 ####[facility] [address] [place], [place], [address] Cardiology Visit Reporton Cardiology Visit Report Normal [facility] Anion gap in Serum or Plasma Ordered By: Sho Andino on 11-19-2024 Anion gap [Moles/Vol] 10 mmol/L 5-15 [facility] BUN/creatinine ratioOrdered By: Sho Andino on 11-19-2024 Urea nitrogen/Creatinine [Mass ratio] 18.4 mg/mg 10-20 [facility] Basic Metabolic Profile (BMP )on 11-19-2024 BUN/CRE 18.4 RATIO Normal - [facility] Comment on above: Performed By: #### L 500.2500, L503.7505 ####[facility] [address] [place], [address] Calcium [Mass/Vol] 8.3 mg/dL Normal 7.6-11.[address] [facility] Comment on above: Performed By: #### L 500.2500, L503.7505 ####[facility] [address] [place], [address] Chloride [Moles/Vol] 98 mmol/L Normal 98-108 [facility] Comment on above: Performed By: #### L 500.2500, L503.7505 ####[facility] [address] [place], [address] CO2 [Moles/Vol] 26.0 mmol/L Normal 21.0-32.0 [facility] Comment on above: Performed By: #### L 500.2500, L503.7505 ####[facility] [address] [place], [address] Creatinine [Mass/Vol] 0.80 mg/dL Normal 0.70-1.20 [facility] Comment on above: Performed By: #### L 500.2500, L503.7505 ####[facility] [address] [place], [address] GAP 10 Normal 5-15 [facility] Comment on above: Performed By: #### L 500.2500, L503.7505 ####[facility] [address] [place], [address] GFR/1.73 sq M.predicted among non-blacks MDRD (S/P/Bld) [Vol rate/Area] 71 mL/min/{1.73_m2} Normal >60 [facility] Comment on above: Result Comment: mL/m in/1.73m2 CKD-EPI Creatinine Equation (2020) Performed By: #### L 500.2500, L503.7505 ####[facility] [address] [place], [address] Glucose [Mass/Vol] 108 mg/dL High 70-[address] [facility] Comment on above: Performed By: #### L 500.2500, L503.7505 ####[facility] [address] [place], [address] Potassium [Moles/Vol] 4.5 mmol/L Normal 3.3-5.1 [facility] Comment on above: Performed By: #### L 500.2500, L503.7505 ####[facility] [address] [place], [address] Sodium [Moles/Vol] 134 mmol/L Normal 133-[address] [facility] Comment on above: Performed By: #### L 500.2500, L503.7505 ####[facility] [address] [place], [address] Urea nitrogen [Mass/Vol] 15 mg/dL Normal 4-19 [facility] Comment on above: Performed By: #### L 500.2500, L503.7505 ####[facility] [address] [place], [address] Carbon dioxide, total [Moles /volume] in Central venous bloodOrdered By: Sho Andino on 11-19-2024 CO2 [Moles/Vol] 26.0 mmol/L 21.0-32.0 [facility] Cardiology Visit Reporton Cardiology Visit Report Normal [facility] Chloride assayOrdered By: Jossue Andino on 11-19-2024 Chloride [Moles/Vol] 98 mmol/L 98-108 [facility] Glomerular filtration rate ( GFR) estimation/1.73 sq m using serum, plasma, or whole bOrdered By: Sho Andino on 11-19-2024 GFR/1.73 sq M.predicted among non-blacks MDRD (S/P/Bld) [Vol rate/Area] 71 mL/min/{1.73_m2} >60 [facility] L503.7505on 11-19-2024 Natriuretic peptide B (Bld) [Mass/Vol] 628 pg/mL Normal <=1800 [facility] Comment on above: Result Comment: Hear t Failure Unlikely: < 300 pg/mLHeart Failure Likely< 50 Years: > 450 pg/mL50-75 Years: > 900 pg/mL>75 Years: > 1800 pg/mL Performed By: #### L 500.2500, L503.7505 ####[facility] [address] [place], [address] Natriuretic peptide.B prohor elier N-Terminal [Mass/volume] in Serum or PlasmaOrdered By: Sho Andino on 11-19-2024 Natriuretic peptide.B prohormone N-Terminal [Mass/Vol] 628 pg/mL <1800 [facility] Potassium measurement (mass/ volume)Ordered By: Sho Andino on 11-19-2024 Potassium (Unsp spec) [Mass/Vol] 4.5 mmol/L 3.3-5.1 [facility] Serum creatinine measurement (mass/volume)Ordered By: Sho Andino on 11-19-2024 Creatinine [Mass/Vol] 0.80 mg/dL 0.70-1.20 [facility] Serum glucose measurement (m ass/volume)Ordered By: Sho Andino on 11-19-2024 Glucose [Mass/Vol] 108 mg/dL High 70-[address] [facility] Serum or plasma calcium manuel urement (mass/volume)Ordered By: Sho Andino on 11-19-2024 Calcium [Mass/Vol] 8.3 mg/dL 7.6-11.[address] [facility] Serum or plasma urea nitroge n measurement (mass/volume)Ordered By: Sho Andino on 11-19-2024 Urea nitrogen [Mass/Vol] 15 mg/dL 4-19 [facility] Sodium levelOrdered By: Elsie Andino on 11-19-2024 Sodium [Moles/Vol] 134 mmol/L 133-[address] [facility] 12 Lead EKGon 11-17-2024 12 Lead EKG Normal [facility] Absolute lymphocyte countOrd ered By: Tylor Hendrickson on 11-17-2024 Lymphocytes Auto (Unsp spec) [#/Vol] 1.78 10*3/uL 0.83-4.51 [facility] Anion gap in Serum or Plasma Ordered By: Tylor eHndrickson on 11-17-2024 Anion gap [Moles/Vol] 14 mmol/L - [facility] Automated lymphocyte count a s percentage of total leukocytesOrdered By: Tylor Hendrickson on 11-17-2024 Lymphocytes/100 WBC Auto (Unsp spec) 21.5 % - [facility] BUN/creatinine ratioOrdered By: Tylor Hendrickson on 11-17-2024 Urea nitrogen/Creatinine [Mass ratio] 20.6 mg/mg High - [facility] Basic Metabolic Profile (BMP )on 11-17-2024 BUN/CRE 20.6 RATIO High 10- [facility] Comment on above: Performed By: #### L 503.7505, L100.0100, L500.2500, L501.4021 ####[facility] [address] [place], [address] ECRCL 37.43 ml/min Low 50-250 [facility] Comment on above: Performed By: #### L 503.7505, L100.0100, L500.2500, L501.4021 ####[facility] [address] [place], [address] GAP 14 Normal - [facility] Comment on above: Performed By: #### L 503.7505, L100.0100, L500.2500, L501.4021 ####[facility] [address] [place], [address] Potassium [Moles/Vol] 4.7 mmol/L Normal 3.3-5.1 [facility] Comment on above: Performed By: #### L 503.7505, L100.0100, L500.2500, L501.4021 ####[facility] [address] [place], [address] Basophil percentageOrdered B y: Tylor Hendrickson on 11-17-2024 Basophils/100 WBC (Bld) 0.8 % 0-[address] [facility] CBC W/Diff, Automatedon Absolute Lymph 1.78 X10 3/uL Normal 0.83-4.51 [facility] Comment on above: Performed By: #### L 503.7505, L100.0100, L500.2500, L501.4021 ####[facility] [address] [place], [address] Absolute Neut 5.4 X10 3/uL Normal 2.0-7.7 [facility] Comment on above: Performed By: #### L 503.7505, L100.0100, L500.2500, L501.4021 ####[facility] [address] [place], [address] Basophils/100 WBC (Bld) 0.8 % Normal 0-[address] [facility] Comment on above: Performed By: #### L 503.7505, L100.0100, L500.2500, L501.4021 ####[facility] [address] [place], [address] Eosinophils/100 WBC (Bld) 1.7 % Normal 0-5 [facility] Comment on above: Performed By: #### L 503.7505, L100.0100, L500.2500, L501.4021 ####[facility] [address] [place], [address] Erythrocyte distribution width (RBC) [Ratio] 15.7 % High 11.6-14.6 [facility] Comment on above: Performed By: #### L 503.7505, L100.0100, L500.2500, L501.4021 ####[facility] [address] [place], [address] Hematocrit (Bld) [Volume fraction] 31.2 % Low 37-47 [facility] Comment on above: Performed By: #### L 503.7505, L100.0100, L500.2500, L501.4021 ####[facility] [address] [place], [address] Hemoglobin (Bld) [Mass/Vol] 9.6 g/dL Low 12.0-15.0 [facility] Comment on above: Performed By: #### L 503.7505, L100.0100, L500.2500, L501.4021 ####[facility] [address] [place], [address] IG% 0.700 Normal 0.0-0.9 [facility] Comment on above: Result Comment: IG% - Immature Granulocytes (promyelocytes, myelocytes andmetamyelocytes) > 1% indicates that a LEFT SHIFT is Present. Performed By: #### L 503.7505, L100.0100, L500.2500, L501.4021 ####[facility] [address] [place], [address] Lymphocytes/100 WBC (Bld) 21.5 % Normal 19-41 [facility] Comment on above: Performed By: #### L 503.7505, L100.0100, L500.2500, L501.4021 ####[facility] [address] [place], [address] MCH (RBC) [Entitic mass] 28.4 pg Normal 27.0-32.0 [facility] Comment on above: Performed By: #### L 503.7505, L100.0100, L500.2500, L501.4021 ####[facility] [address] [place], [address] MCHC (RBC) [Mass/Vol] 30.8 g/dL Low 32-36 [facility] Comment on above: Performed By: #### L 503.7505, L100.0100, L500.2500, L501.4021 ####[facility] [address] [place], [address] MCV (RBC) [Entitic vol] 92.3 fL Normal 81-[address] [facility] Comment on above: Performed By: #### L 503.7505, L100.0100, L500.2500, L501.4021 ####[facility] [address] [place], [address] Monocytes/100 WBC (Bld) 9.6 % Normal 0-10 [facility] Comment on above: Performed By: #### L 503.7505, L100.0100, L500.2500, L501.4021 ####[facility] [address] [place], [address] Neutrophils/100 WBC (Bld) 65.7 % Normal 47-70 [facility] Comment on above: Performed By: #### L 503.7505, L100.0100, L500.2500, L501.4021 ####[facility] [address] [place], [address] Nucleated RBC (Bld) [#/Vol] 0 10*3/uL Normal 0-5 [facility] Comment on above: Performed By: #### L 503.7505, L100.0100, L500.2500, L501.4021 ####[facility] [address] [place], [address] Platelet mean volume (Bld) [Entitic vol] 9.2 fL Normal 6.2-12.0 [facility] Comment on above: Performed By: #### L 503.7505, L100.0100, L500.2500, L501.4021 ####[facility] [address] [place], [address] Platelets (Bld) [#/Vol] 401 10*3/uL Normal 150-450 [facility] Comment on above: Performed By: #### L 503.7505, L100.0100, L500.2500, L501.4021 ####[facility] [address] [place], [address] RBC (Bld) [#/Vol] 3.38 10*6/uL Low 4.2-5.[address] [facility] Comment on above: Performed By: #### L 503.7505, L100.0100, L500.2500, L501.4021 ####[facility] [address] [place], [address] RDW SD 53.4 fl High 35.1-43.9 [facility] Comment on above: Performed By: #### L 503.7505, L100.0100, L500.2500, L501.4021 ####[facility] [address] [place], [address] WBC (Bld) [#/Vol] 8.3 10*3/uL Normal 4.4-11.[address] [facility] Comment on above: Performed By: #### L 503.7505, L100.0100, L500.2500, L501.4021 ####[facility] [address] [place], [address] Carbon dioxide, total [Moles /volume] in Central venous bloodOrdered By: Tylor Hendrickson on 11-17-2024 CO2 [Moles/Vol] 22.4 mmol/L Normal 21.0-32.0 [facility] Comment on above: Performed By: #### L 503.7505, L100.0100, L500.2500, L501.4021 ####[facility] [address] [place], [address] Chest 1 View (Portable)on Chest 1 View (Portable) Normal [facility] Chloride assayOrdered By: Cari Hendrickson on 11-17-2024 Chloride [Moles/Vol] 99 mmol/L Normal 98-108 [facility] Comment on above: Performed By: #### L 503.7505, L100.0100, L500.2500, L501.4021 ####[facility] [address] [place], [place], [id number] Emergency Department Summary on 11-17-2024 Emergency Department Summary Normal [facility] Eosinophil percentageOrdered By: Tylor Hendrickson on 11-17-2024 Eosinophils/100 WBC (Bld) 1.7 % 0-5 [facility] Erythrocyte distribution wid th ratioOrdered By: Tylor Hendrickson on 11-17-2024 Erythrocyte distribution width (RBC) [Ratio] 15.7 % High 11.6-14.6 [facility] Erythrocyte distribution wid th standard deviationOrdered By: Tylor Hendrickson on 11-17-2024 Erythrocyte distribution width (RBC) [Ratio] 53.4 fl High 35.1-43.9 [facility] Glomerular filtration rate ( GFR) estimation/1.73 sq m using serum, plasma, or whole bOrdered By: Tylor Hendrickson on 11-17-2024 GFR/1.73 sq M.predicted among non-blacks MDRD (S/P/Bld) [Vol rate/Area] 60 mL/min/{1.73_m2} Normal >60 [facility] Comment on above: Result Comment: mL/m in/1.73m2 CKD-EPI Creatinine Equation (2020) Performed By: #### L 503.7505, L100.0100, L500.2500, L501.4021 ####[facility] [address] [place], [place], [address] Hematocrit Auto (Bld) [Volum e fraction]Ordered By: Tylor Hendrickson on 11-17-2024 Hematocrit (Bld) [Volume fraction] 31.2 % Low 37-47 [facility] Hemoglobin measurementOrdere d By: Tylor Hendrickson on 11-17-2024 Hemoglobin (Bld) [Mass/Vol] 9.6 g/dL Low 12.0-15.0 [facility] Immature granulocytes/100 WB C Auto (Bld)Ordered By: Tylor Hendrickson on 11-17-2024 Immature granulocytes/100 WBC (Bld) 0.700 % 0.0-0.9 [facility] L499.0042on 11-17-2024 Trop T High Sen 34 ng/L High <=14 [facility] Comment on above: Performed By: #### L 499.0042 ####[facility] [address] [place], [address] L499.0043on 11-17-2024 Trop T High Sen 34 ng/L High <=14 [facility] Comment on above: Performed By: #### L 499.0043 ####[facility] [address] [place], [address] L501.4021on 11-17-2024 Trop T High Sen 35 ng/L High <=14 [facility] Comment on above: Performed By: #### L 503.7505, L100.0100, L500.2500, L501.4021 ####[facility] [address] [place], [address] L503.7505on 11-17-2024 Natriuretic peptide B (Bld) [Mass/Vol] 666 pg/mL Normal <=1800 [facility] Comment on above: Result Comment: Hear t Failure Unlikely: < 300 pg/mLHeart Failure Likely< 50 Years: > 450 pg/mL50-75 Years: > 900 pg/mL>75 Years: > 1800 pg/mL Performed By: #### L 503.7505, L100.0100, L500.2500, L501.4021 ####[facility] [address] [place], [address] MCV (mean corpuscular volume ) determinationOrdered By: Tylor Hendrickson on 11-17-2024 MCV (RBC) [Entitic vol] 92.3 fL 81-[address] [facility] Mean corpuscular hemoglobin (MCH) determinationOrdered By: Tylor Hendrickson on 11-17-2024 MCH (RBC) [Entitic mass] 28.4 pg 27.0-32.0 [facility] Monocyte percentageOrdered B y: Tylor Hendrickson on 11-17-2024 Monocytes/100 WBC (Bld) 9.6 % 0-[address] [facility] Natriuretic peptide.B prohor elier N-Terminal [Mass/volume] in Serum or PlasmaOrdered By: Tylor Hendrickson on 11-17-2024 Natriuretic peptide.B prohormone N-Terminal [Mass/Vol] 666 pg/mL <1800 [facility] Neutrophil percentageOrdered By: Tylor Hendrickson on 11-17-2024 Neutrophils/100 WBC (Bld) 65.7 % 47-70 [facility] Platelet countOrdered By: Cari Hendrickson on 11-17-2024 Platelets (Bld) [#/Vol] 401 10*3/uL 150-450 [facility] Potassium measurement (mass/ volume)Ordered By: Tylor Hendrickson on 11-17-2024 Potassium (Unsp spec) [Mass/Vol] 4.7 mmol/L 3.3-5.1 [facility] RBC Auto (Bld) [#/Vol]Ordere d By: Tylor Hendrickson on 11-17-2024 RBC (Bld) [#/Vol] 3.38 10*6/uL Low 4.2-5.[address] [facility] Serum creatinine measurement (mass/volume)Ordered By: Tylor Hendrickson on 11-17-2024 Creatinine [Mass/Vol] 0.92 mg/dL Normal 0.70-1.20 [facility] Comment on above: Performed By: #### L 503.7503, L100.0100, L500.2500, L501.4021 ####[facility] [address] [place], [address] Serum glucose measurement (m ass/volume)Ordered By: Tylor Hendrickson on 11-17-2024 Glucose [Mass/Vol] 106 mg/dL High 70-[address] [facility] Comment on above: Performed By: #### L 503.7505, L100.0100, L500.2500, L501.4021 ####[facility] [address] [place], [address] Serum or plasma calcium manuel urement (mass/volume)Ordered By: Tylor Hendrickson on 11-17-2024 Calcium [Mass/Vol] 8.1 mg/dL Normal 7.6-11.[address] [facility] Comment on above: Performed By: #### L 503.7505, L100.0100, L500.2500, L501.4021 ####[facility] [address] [place], [address] Serum or plasma urea nitroge n measurement (mass/volume)Ordered By: Tylor Hendrickson on 11-17-2024 Urea nitrogen [Mass/Vol] 19 mg/dL Normal 4-19 [facility] Comment on above: Performed By: #### L 503.7505, L100.0100, L500.2500, L501.4021 ####[facility] [address] [place], [address] Sodium levelOrdered By: Tylor Hendrickson on 11-17-2024 Sodium [Moles/Vol] 136 mmol/L Normal 133-[address] [facility] Comment on above: Performed By: #### L 503.7505, L100.0100, L500.2500, L501.4021 ####[facility] [address] [place], [address] Troponin T.cardiac [Mass/vol ume] in Serum or Plasma by High sensitivity methodOrdered By: Tylor Hendrickson on 11-17-2024 Troponin T.cardiac High sensitivity method [Mass/Vol] 34 ng/L High <14 [facility] Troponin T.cardiac High sensitivity method [Mass/Vol] 34 ng/L High <14 [facility] Troponin T.cardiac High sensitivity method [Mass/Vol] 35 ng/L High <14 [facility] White blood cell (WBC) count Ordered By: Tylor Hendrickson on 11-17-2024 WBC (Bld) [#/Vol] 8.3 10*3/uL 4.4-11.[address] [facility] Basic metabolic 2000 panelon 11-05-2024 Anion gap [Moles/Vol] 10 mmol/L Normal 10-20 [facility] Comment on above: Performed By: #### 3 0934-4 #### CURTIS SCHREIBER ([id number]) [facility] ([facility]) [address] [place] [address] Calcium [Mass/Vol] 7.8 mg/dL Low 8.6-10.3 [facility] Comment on above: Performed By: #### 3 0934-4 #### CURTIS SCHREIBER ([id number]) [facility] ([facility]) [facility] [place] [address] Chloride [Moles/Vol] 101 mmol/L Normal 98-107 [facility] Comment on above: Performed By: #### 3 0934-4 #### CURTIS SCHREIBER ([id number]) [facility] ([facility]) [address] [place] [address] CO2 [Moles/Vol] 28 mmol/L Normal 21-32 [facility] Comment on above: Performed By: #### 3 0934-4 #### CURTIS SCHREIBER ([id number]) [facility] ([facility]) [facility] [place] [address] Creatinine [Mass/Vol] 0.81 mg/dL Normal 0.50-1.05 [facility] Comment on above: Performed By: #### 3 0934-4 #### CURTIS SCHREIBER ([id number]) [facility] ([facility]) [address] [place] [address] Glomerular filtration rate/1.73 sq M.predicted 70 mL/min/1.73m*2 Normal >60 [facility] Comment on above: Result Comment: Calc ulations of estimated GFR are performed using the 2020 CKD-EPI Study Refit equation without the race variable for the IDMS-Traceable creatinine methods. https://jasn.asnjournals.org/content/ASN 161140 Performed By: #### 3 34-4 #### CURTIS SCHREIBER ([id number]) [facility] ([facility]) [address] [place] [address] Glucose [Mass/Vol] 95 mg/dL Normal 74-99 [facility] Comment on above: Performed By: #### 3 34-4 #### CURTIS SCHREIBER ([id number]) [facility] ([facility]) [address] [place] [address] 12972 Potassium [Moles/Vol] 5.0 mmol/L Normal 3.5-5.3 [facility] Comment on above: Performed By: #### 3 34-4 #### CURTIS SCHREIBER ([id number]) [facility] ([facility]) [address] [place] [address] 39[address] Sodium [Moles/Vol] 134 mmol/L Low 136-145 [facility] Comment on above: Performed By: #### 3 34-4 #### CURTIS SCHREIBER ([id number]) [facility] ([facility]) [address] [place] [address] 81027 Urea nitrogen [Mass/Vol] 27 mg/dL High 6-23 [facility] Comment on above: Performed By: #### 3 34-4 #### CURTIS SCHREIBER ([id number]) [facility] ([facility]) [address] [place] [address] 679[address] Comprehensive metabolic 2000 panelon 10-29-2024 Albumin BCP dye [Mass/Vol] 3.2 g/dL Low 3.4-5.0 [facility] Comment on above: Performed By: #### 3 34-4 #### CURTIS SCHREIBER ([id number]) [facility] ([facility]) [address] [place] [address] ALP [Catalytic activity/Vol] 110 U/L Normal 33-136 [facility] Comment on above: Performed By: #### 3 34-4 #### CURTIS SCHREIBER ([id number]) [facility] ([facility]) [address] [place] [address] ALT With P-5'-P [Catalytic activity/Vol] 12 U/L Normal 7-45 [facility] Comment on above: Result Comment: Bobbi ents treated with Sulfasalazine may generate falsely decreased results for ALT. Performed By: #### 3 0934-4 #### CURTIS SCHREIBER ([id number]) [facility] ([facility]) [address] [place] [address] Anion gap [Moles/Vol] 12 mmol/L Normal 10-20 [facility] Comment on above: Performed By: #### 3 34-4 #### CURTIS SCHREIBER ([id number]) [facility] ([facility]) [address] [place] [address] 04936 AST With P-5'-P [Catalytic activity/Vol] 14 U/L Normal 9-39 [facility] Comment on above: Performed By: #### 3 34-4 #### CURTIS SCHREIBER ([id number]) [facility] ([facility]) [address] [place] [address] Bilirubin [Mass/Vol] 0.4 mg/dL Normal 0.0-1.2 [facility] Comment on above: Performed By: #### 3 0934-4 #### CURTIS SCHREIBER ([id number]) [facility] ([facility]) [address] [place] [address] 97[address] Calcium [Mass/Vol] 7.9 mg/dL Low 8.6-10.3 [facility] Comment on above: Performed By: #### 3 0934-4 #### CURTIS SCHREIBER ([id number]) [facility] ([facility]) [address] [place] [address] 700[address] Chloride [Moles/Vol] 100 mmol/L Normal 98-107 [facility] Comment on above: Performed By: #### 3 0934-4 #### CURTIS SCHREIBER ([id number]) [facility] ([facility]) [address] [place] [address] [place] [address] CO2 [Moles/Vol] 26 mmol/L Normal 21-32 [facility] Comment on above: Performed By: #### 3 0934-4 #### CURTIS SCHREIBER ([id number]) [facility] ([facility]) [address] [place] [address] 65[address] Creatinine [Mass/Vol] 1.08 mg/dL High 0.50-1.05 [facility] Comment on above: Performed By: #### 3 0934-4 #### CURTIS SCHREIBER ([id number]) [facility] ([facility]) [address] [place] [address] 50474 Glomerular filtration rate/1.73 sq M.predicted 50 mL/min/1.73m*2 Low >60 [facility] Comment on above: Result Comment: Calc ulations of estimated GFR are performed using the 2020 CKD-EPI Study Refit equation without the race variable for the IDMS-Traceable creatinine methods. https://jasn.asnjournals.org/content/early//ASN.2020 785962 Performed By: #### 3 0934-4 #### CURTIS SCHREIBER ([id number]) [facility] ([facility]) [address] [place] [address] 71867 Glucose [Mass/Vol] 91 mg/dL Normal 74-99 [facility] Comment on above: Performed By: #### 3 0934-4 #### CURTIS SCHREIBER ([id number]) [facility] ([facility]) [address] [place] [address] 667[address] Potassium [Moles/Vol] 5.3 mmol/L Normal 3.5-5.3 [facility] Comment on above: Performed By: #### 3 0934-4 #### CURTIS SCHREIBER ([id number]) [facility] ([facility]) [address] [place] [address] 79570 Protein [Mass/Vol] 5.1 g/dL Low 6.4-8.2 [facility] Comment on above: Performed By: #### 3 0934-4 #### CURTIS SCHREIBER ([id number]) [facility] ([facility]) [address] [place] [address] Sodium [Moles/Vol] 133 mmol/L Low 136-145 [facility] Comment on above: Performed By: #### 3 0934-4 #### CURTIS SCHREIBER ([id number]) [facility] ([facility]) [address] [place] [address] Urea nitrogen [Mass/Vol] 25 mg/dL High 6-23 [facility] Comment on above: Performed By: #### 3 0934-4 #### CURTIS SCHREIBER ([id number]) [facility] ([facility]) [address] [place] [address] Bacteria identifiedon 2024 Bacteria identified Cx Nom (U) Test: Urine Culture Specimen Source: Clean Catch/Voided Specimen Type: Urine Specimen Date: 10/22/2024657 Result Date: 10/23/2024731 Result Status: Final result Abnormal: No Resulting Lab: [facility] [id number] [place] [address] CULTURE No growth Normal [facility] Comment on above: Performed By: #### 3 0934-4 #### CURTIS SCHREIBER ([id number]) [facility] ([facility]) [address] [place] [address] CBC panel Auto (Bld)on 10-22 Erythrocyte distribution width (RBC) [Ratio] 14.2 % Normal 11.5-14.5 [facility] Comment on above: Performed By: #### 3 0934-4 #### CURTIS SCHREIBER ([id number]) [facility] ([facility]) [address] [place] [address] Hematocrit (Bld) [Volume fraction] 31.5 % Low 36.0-46.0 [facility] Comment on above: Performed By: #### 3 0934-4 #### CURTIS SCHREIBER ([id number]) [facility] ([facility]) [address] [place] [address] Hemoglobin (Bld) [Mass/Vol] 10.0 g/dL Low 12.0-16.0 [facility] Comment on above: Performed By: #### 3 0934-4 #### CURTIS SCHREIBER ([id number]) [facility] ([facility]) [address] [place] [address] 07260 MCH (RBC) [Entitic mass] 28.7 pg Normal 26.0-34.0 [facility] Comment on above: Performed By: #### 3 34-4 #### CURTIS SCHREIBER ([id number]) [facility] ([facility]) [address] [place] [address] MCHC (RBC) [Mass/Vol] 31.7 g/dL Low 32.0-36.0 [facility] Comment on above: Performed By: #### 3 34-4 #### CURTIS SCHREIBER ([id number]) [facility] ([facility]) [address] [place] [address] MCV (RBC) [Entitic vol] 90 fL Normal 80-100 U [facility] Comment on above: Performed By: #### 3 34-4 #### CURTIS SCHREIBER ([id number]) [facility] ([facility]) [address] [place], [place] [id number] Nucleated RBC/100 WBC (Bld) [Ratio] 0.0 /100 WBCs Normal 0.0-0.0 [facility] Comment on above: Performed By: #### 3 34-4 #### CURTIS SCHREIBER ([id number]) [facility] ([facility]) [address] [place] [address] 26427 Platelets (Bld) [#/Vol] 424 x10*3/uL Normal 150-450 [facility] Comment on above: Performed By: #### 3 0934-4 #### CURTIS SCHREIBER ([id number]) [facility] ([facility]) [address] [place] [address] 76269 RBC (Bld) [#/Vol] 3.49 x10*6/uL Low 4.00-5.20 [facility] Comment on above: Performed By: #### 3 0934-4 #### CURTIS SCHREIBER ([id number]) [facility] ([facility]) [address] [place] [address] WBC (Bld) [#/Vol] 8.5 x10*3/uL Normal 4.4-11.3 [facility] Comment on above: Performed By: #### 3 34-4 #### CURTIS SCHREIBER ([id number]) [facility] ([facility]) [address] [place] [address] Comprehensive metabolic 2000 panelon 10-22-2024 Albumin BCP dye [Mass/Vol] 3.4 g/dL Normal 3.4-5.0 [facility] Comment on above: Performed By: #### 3 34-4 #### CURTIS SCHREIBER ([id number]) [facility] ([facility]) [address] [place] [address] ALP [Catalytic activity/Vol] 84 U/L Normal 33-136 [facility] Comment on above: Performed By: #### 3 34-4 #### CURTIS SCHREIBER ([id number]) [facility] ([facility]) [address] [place] [address] ALT With P-5'-P [Catalytic activity/Vol] 17 U/L Normal 7-45 [facility] Comment on above: Result Comment: Bobbi ents treated with Sulfasalazine may generate falsely decreased results for ALT. Performed By: #### 3 0934-4 #### CURTIS SCHREIBER ([id number]) [facility] ([facility]) [address] [place] [address] 84910 Anion gap [Moles/Vol] 13 mmol/L Normal 10-20 [facility] Comment on above: Performed By: #### 3 0934-4 #### CURTIS SCHREIBER ([id number]) [facility] ([facility]) [address] [place] [address] 91438 AST With P-5'-P [Catalytic activity/Vol] 17 U/L Normal 9-39 [facility] Comment on above: Performed By: #### 3 0934-4 #### CURTIS SCHREIBER ([id number]) [facility] ([facility]) [address] [place] [address] Bilirubin [Mass/Vol] 0.5 mg/dL Normal 0.0-1.2 [facility] Comment on above: Performed By: #### 3 0934-4 #### CURTIS SCHREIBER ([id number]) [facility] ([facility]) [address] [place] [address] 16286 Calcium [Mass/Vol] 7.6 mg/dL Low 8.6-10.3 [facility] Comment on above: Performed By: #### 3 0934-4 #### CURTIS SCHREIBER ([id number]) [facility] ([facility]) [address] [place] [address] Chloride [Moles/Vol] 93 mmol/L Low 98-107 [facility] Comment on above: Performed By: #### 3 0934-4 #### CURTIS SCHREIBER ([id number]) [facility] ([facility]) [address] [place] [address] CO2 [Moles/Vol] 26 mmol/L Normal 21-32 [facility] Comment on above: Performed By: #### 3 0934-4 #### CURTIS SCHREIBER ([id number]) [facility] ([facility]) [facility] [place] [address] Creatinine [Mass/Vol] 1.19 mg/dL High 0.50-1.05 [facility] Comment on above: Performed By: #### 3 0934-4 #### CURTIS SCHREIBER ([id number]) [facility] ([facility]) [facility] [place] [address] Glomerular filtration rate/1.73 sq M.predicted 44 mL/min/1.73m*2 Low >60 [facility] Comment on above: Result Comment: Calc ulations of estimated GFR are performed using the 2020 CKD-EPI Study Refit equation without the race variable for the IDMS-Traceable creatinine methods. https://jasn.asnjournals.org/content/earlyASN 803273 Performed By: #### 3 34-4 #### CURTIS SCHREIBER ([id number]) [facility] ([facility]) [address] [place] [address] 26197 Glucose [Mass/Vol] 98 mg/dL Normal 74-99 [facility] Comment on above: Performed By: #### 3 34-4 #### CURTIS SCHREIBER ([id number]) [facility] ([facility]) [address] [place] [address] 96698 Potassium [Moles/Vol] 4.6 mmol/L Normal 3.5-5.3 [facility] Comment on above: Performed By: #### 3 34-4 #### CURTIS SCHREIBER ([id number]) [facility] ([facility]) [address] [place] [address] 30039 Protein [Mass/Vol] 5.5 g/dL Low 6.4-8.2 [facility] Comment on above: Performed By: #### 3 34-4 #### CURTIS SCHREIBER ([id number]) [facility] ([facility]) [address] [place] [address] 48080 Sodium [Moles/Vol] 127 mmol/L Low 136-145 [facility] Comment on above: Performed By: #### 3 34-4 #### CURTIS SCHREIBER ([id number]) [facility] ([facility]) [address] [place] [address] 58017 Urea nitrogen [Mass/Vol] 46 mg/dL High 6-23 [facility] Comment on above: Performed By: #### 3 34-4 #### CURTIS SCHREIBER ([id number]) [facility] ([facility]) [address] [place] [address] 43326 Urinalysis complete panel (U )on 10-22-2024 Appearance (U) Clear Normal Clear [facility] Comment on above: Performed By: #### 3 34-4 #### CURTIS SCHREIBER ([id number]) [facility] ([facility]) [address] [place] [address] Bilirubin (U) [Mass/Vol] Negative Normal NEGATIVE [facility] Comment on above: Performed By: #### 3 0934-4 #### CURTIS SCHERIBER ([id number]) [facility] ([facility]) [address] [place] [address] 12038 Color (U) Yellow Normal Light-Yellow , Yellow, Dark-Yellow [facility] Comment on above: Performed By: #### 3 0934-4 #### CURTIS SCHREIBER ([id number]) [facility] ([facility]) [address] [place] [address] 99669 Glucose Auto test strip (U) [Mass/Vol] Normal Normal Normal [facility] Comment on above: Performed By: #### 3 0934-4 #### CURTIS SCHREIBER ([id number]) [facility] ([facility]) [address] [place] [address] 76611 Ketones (U) [Mass/Vol] Negative Normal NEGATIVE Un [facility] Comment on above: Performed By: #### 3 0934-4 #### CURTIS SCHREIBER ([id number]) [facility] ([facility]) [address] [place] [address] 18380 Leukocyte esterase Auto test strip Ql (U) Negative Normal NEGATIVE [facility] Comment on above: Performed By: #### 3 0934-4 #### CURTIS SCHREIBER ([id number]) [facility] ([facility]) [address] [place] [address] 94619 Nitrite Auto test strip Ql (U) Negative Normal NEGATIVE [facility] Comment on above: Performed By: #### 3 0934-4 #### CURTIS SCHREIBER ([id number]) [facility] ([facility]) [address] [place] [address] 78599 pH (U) 5.5 [pH] Normal 5.0, 5.5, 6.0, 6.5, 7.0, 7.5, 8.0 [facility] Comment on above: Performed By: #### 3 0934-4 #### CURTIS SCHREIBER ([id number]) [facility] ([facility]) [address] [place] [address] Protein (U) [Mass/Vol] 20 (TRACE) Normal NEGAT HEMANT, 10 (TRACE), 20 (TRACE) [facility] Comment on above: Performed By: #### 3 0934-4 #### CURTIS SCHREIBER ([id number]) [facility] ([facility]) [address] [place] [address] RBC (U) [#/Vol] Negative Normal NEGATIVE [facility] Comment on above: Performed By: #### 3 0934-4 #### CURTIS SCHREIBER ([id number]) [facility] ([facility]) [address] [place] [address] Specific gravity (U) [Rel density] 1.015 Normal 1.005-1.035 [facility] Comment on above: Performed By: #### 3 0934-4 #### CURTIS SCHREIBER ([id number]) [facility] ([facility]) [address] [place] [address] Urobilinogen (U) [Mass/Vol] Normal Normal Normal [facility] Comment on above: Performed By: #### 3 0934-4 #### CURTIS SCHREIBER ([id number]) [facility] ([facility]) [address] [place] [address] Urinalysis microscopic panel Auto Ql (U)on 10-22-2024 Crystals.amorphous Computer assisted (U) [#/Area] 1+ /HPF Normal NONE, 1+, 2+ [facility] Comment on above: Performed By: #### 3 0934-4 #### CURTIS SCHREIBER ([id number]) [facility] ([facility]) [address] [place] [address] Hyaline casts Auto (Urine sed) [#/Area] 1+ /LPF Abnormal NONE [facility] Comment on above: Performed By: #### 3 0934-4 #### CURTIS SCHREIBER ([id number]) [facility] ([facility]) [address] [place] [address] Leukocyte clumps Auto (Urine sed) [#/Area] RARE Normal Reference range not established. [facility] Comment on above: Performed By: #### 3 0934-4 #### CURTIS SCHREIBER ([id number]) [facility] ([facility]) [facility] [place] [address] RBC Auto (Urine sed) [#/Area] 1-2 Normal NONE, 1-2, 3-5 [facility] Comment on above: Performed By: #### 3 0934-4 #### CURTIS SCHREIBER ([id number]) [facility] ([facility]) [address] [place] [address] WBC Auto (Urine sed) [#/Area] 1-5 Normal 1-5, NONE [facility] Comment on above: Performed By: #### 3 0934-4 #### CURTIS SCHREIBER ([id number]) [facility] ([facility]) [address] [place] [address] 39003 Comprehensive metabolic 2000 panelon 10-13-2024 Albumin BCP dye [Mass/Vol] 3.7 g/dL 3.4 - 5.0 g/dL [facility] ALP [Catalytic activity/Vol] 81 U/L 33 - 136 U/L [facility] ALT With P-5'-P [Catalytic activity/Vol] 12 U/L 7 - 45 U/L [facility] Comment on above: Patients treated wit h Sulfasalazine may generate falsely decreased results for ALT. Anion gap [Moles/Vol] 14 mmol/L 10 - 2 0 mmol/L [facility] AST With P-5'-P [Catalytic activity/Vol] 15 U/L 9 - 39 U/L [facility] Bilirubin [Mass/Vol] 0.5 mg/dL 0.0 - 1 .2 mg/dL [facility] Calcium [Mass/Vol] 8.1 mg/dL Low 8.6 - 10. 3 mg/dL [facility] Chloride [Moles/Vol] 98 mmol/L 98 - 10 7 mmol/L [facility] CO2 [Moles/Vol] 24 mmol/L 21 - 32 mmol/L [facility] Creatinine [Mass/Vol] 1.52 mg/dL High 0.50 - 1.05 mg/dL [facility] GFR/1.73 sq M.predicted among non-blacks MDRD (S/P/Bld) [Vol rate/Area] 33 mL/min/{1.73_m2} Low - PINF [facility] Comment on above: Calculations of michael mated GFR are performed using the 2020 CKD-EPI Study Refit equation without the race variable for the IDMS-Traceable creatinine methods. https://jasn.asnjournals.org/content/early//ASN.2020 153293 Glucose [Mass/Vol] 128 mg/dL High 74 - 99 mg/dL [facility] Interpretation and review of laboratory results Abnormal [facility] Potassium [Moles/Vol] 4.8 mmol/L 3.5 - 5.3 mmol/L [facility] Protein [Mass/Vol] 6.4 g/dL 6.4 - 8.2 g/dL [facility] Sodium [Moles/Vol] 131 mmol/L Low 136 - 145 mmol/L [facility] Urea nitrogen [Mass/Vol] 59 mg/dL High 6 - 23 mg/dL [facility] 10-13-2024 Lipase [Catalytic activity/Vol] 48 U/L 9 - 82 U/L [facility] Lipase [Catalytic activity/V ol]on 10-13-2024 Interpretation and review of laboratory results Normal [facility] Venipuncture immediately after or during the administration of Metamizole may lead to falsely low results. Testing should be performed immediately prior to Metamizole dosing. [facility] XR Chest Single viewon 10-13 Cardiomegaly with mild interstitial prominence which could be chronic or relate to component developing interstitial edema/CHF. Correlate clinically. Deformity of the left humeral neck suspicious for age indeterminate fracture. Correlate with history and symptomatology for the need for further evaluation with dedicated shoulder/humeral x-rays. MACRO: None Signed by: Erin Garrett 10/13/2024 12:00 AM Dictation workstation: [id number]AL Interpreted By: Erin Garrett, STUDY: XR CHEST 1 VIEW; 10/12/2024 11:40 pm INDICATION: Signs/Symptoms:dyspn ea. COMPARISON: None. ACCESSION NUMBER(S): [id number] ORDERING CLINICIAN: NICHOLE GUERRA FINDINGS: CARDIOMEDIASTINAL SILHOUETTE: [...] INDICATION: Signs/Symptoms:dyspn ea. COMPARISON: None. ACCESSION NUMBER(S): [id number] ORDERING CLINICIAN: NICHOLE GUERRA FINDINGS: CARDIOMEDIASTINAL SILHOUETTE: [...] Erin Garrett 10/13/2024 12:00 AM Dictation workstation: [id number] [facility] Work Phone: XR Chest Single viewOrdered By: Erin Garrett on 10-13-2024 [facility] Work Phone: Bacteria identifiedon 2024 Bacteria identified Cx Nom (U) Test: Urine Culture Specimen Source: Clean Catch/Voided Specimen Type: Urine Specimen Date: 10/12/20242340 Result Date: 10/14/202431 Result Status: Final result Abnormal: No Resulting Lab: [facility] [address] [address] CULTURE Growth indicates contamination with mixed bacterial darci. Repeat culture if clinically indicated. Normal [facility] Comment on above: Performed By: #### 3 0934-4 #### ACEVEDO ABDOUL ([id number]) [facility] ([facility]) [address] [place] [address] CBC W Auto Differential pane l (Bld)on 10-12-2024 Basophils (Bld) [#/Vol] 0.06 10*3/uL [facility] Basophils/100 WBC (Bld) 0.7 % 0.0 - 2.0 % [facility] Eosinophils (Bld) [#/Vol] 0.31 10*3/uL [facility] Eosinophils/100 WBC (Bld) 3.6 % 0.0 - 6.0 % [facility] Erythrocyte distribution width (RBC) [Ratio] 13.9 % 11.5 - 14.5 % [facility] Hematocrit (Bld) [Volume fraction] 31.4 % Low 36.0 - 46.0 % [facility] Hemoglobin (Bld) [Mass/Vol] 9.9 g/dL Low 12.0 - 16.0 g/dL [facility] Immature granulocytes (Bld) [#/Vol] 0.08 10*3/uL [facility] Immature granulocytes/100 WBC (Bld) 0.9 % 0.0 - 0.9 % [facility] Comment on above: Immature Granulocyte Count (IG) includes promyelocytes, myelocytes and metamyelocytes but does not include bands. Percent differential counts (%) should be interpreted in the context of the absolute cell counts (cells/UL). Interpretation and review of laboratory results Abnormal [facility] Lymphocytes (Bld) [#/Vol] 1.77 10*3/uL [facility] Lymphocytes/100 WBC (Bld) 20.3 % 13.0 - 44.0 % [facility] MCH (RBC) [Entitic mass] 29.2 pg 26.0 - 34.0 pg [facility] MCHC (RBC) [Mass/Vol] 31.5 g/dL Low 32.0 - 36.0 g/dL [facility] MCV (RBC) [Entitic vol] 93 fL 80 - 100 fL [facility] Monocytes (Bld) [#/Vol] 0.81 10*3/uL High [facility] Monocytes/100 WBC (Bld) 9.3 % 2.0 - 10.0 % [facility] Neutrophils (Bld) [#/Vol] 5.7 10*3/uL High [facility] Comment on above: Percent differential counts (%) should be interpreted in the context of the absolute cell counts (cells/uL). Neutrophils/100 WBC (Bld) 65.2 % 40.0 - 80.0 % [facility] Nucleated RBC/100 WBC (Bld) [Ratio] 0 % [facility] Platelets (Bld) [#/Vol] 309 10*3/uL [facility] RBC (Bld) [#/Vol] 3.39 10*6/uL Low [facility] WBC (Bld) [#/Vol] 8.7 10*3/uL [place] Basophils (Bld) [#/Vol] 0.06 x10*3/uL Normal 0.00-0.10 [facility] Comment on above: Performed By: #### 5 7021-8 #### CURTIS SCHREIBER ([id number]) [facility] ([facility]) [address] [place] [address] 81890 Basophils/100 WBC (Bld) 0.7 % Normal 0.0-2.0 [facility] Comment on above: Performed By: #### 5 7021-8 #### CURTIS SCHREIBER ([id number]) [facility] ([facility]) [facility] [place] [address] Eosinophils (Bld) [#/Vol] 0.31 x10*3/uL Normal 0.00-0.40 [facility] Comment on above: Performed By: #### 5 7021-8 #### CURTIS SCHREIBER ([id number]) [facility] ([facility]) [address] [place] [address] 74443 Eosinophils/100 WBC (Bld) 3.6 % Normal 0.0-6.0 [facility] Comment on above: Performed By: #### 5 7021-8 #### CURTIS SCHREIBER ([id number]) [facility] ([facility]) [address] [place] [address] 75579 Erythrocyte distribution width (RBC) [Ratio] 13.9 % Normal 11.5-14.5 [facility] Comment on above: Performed By: #### 5 7021-8 #### CURTIS SCHREIBER ([id number]) [facility] ([facility]) [address] [place] [address] 94735 Hematocrit (Bld) [Volume fraction] 31.4 % Low 36.0-46.0 [facility] Comment on above: Performed By: #### 5 7021-8 #### CURTIS SCHREIBER ([id number]) [facility] ([facility]) [address] [place] [address] 10457 Hemoglobin (Bld) [Mass/Vol] 9.9 g/dL Low 12.0-16.0 [facility] Comment on above: Performed By: #### 5 7021-8 #### CURTIS SCHREIBER ([id number]) [facility] ([facility]) [address] [place] [address] 44911 Immature granulocytes (Bld) [#/Vol] 0.08 x10*3/uL Normal 0.00-0.50 [facility] Comment on above: Performed By: #### 5 7021-8 #### CURTIS SCHREIBER ([id number]) [facility] ([facility]) [address] [place] [address] 82179 Immature granulocytes/100 WBC (Bld) 0.9 % Normal 0.0-0.9 [facility] Comment on above: Result Comment: Breana ture Granulocyte Count (IG) includes promyelocytes, myelocytes and metamyelocytes but does not include bands. Percent differential counts (%) should be interpreted in the context of the absolute cell counts (cells/UL). Performed By: #### 5 7021-8 #### CURTIS SCHREIBER ([id number]) [facility] ([facility]) [address] [place] [address] 32451 Lymphocytes (Bld) [#/Vol] 1.77 x10*3/uL Normal 0.80-3.00 [facility] Comment on above: Performed By: #### 5 7021-8 #### CURTIS SCHREIBER ([id number]) [facility] ([facility]) [address] [place] [address] 49940 Lymphocytes/100 WBC (Bld) 20.3 % Normal 13.0-44.0 [facility] Comment on above: Performed By: #### 5 7021-8 #### CURTIS SCHREIBER ([id number]) [facility] ([facility]) [address] [place] [address] 45466 MCH (RBC) [Entitic mass] 29.2 pg Normal 26.0-34.0 [facility] Comment on above: Performed By: #### 5 7021-8 #### CURTIS SCHREIBER ([id number]) [facility] ([facility]) [address] [place] [address] 44131 MCHC (RBC) [Mass/Vol] 31.5 g/dL Low 32.0-36.0 [facility] Comment on above: Performed By: #### 5 7021-8 #### CURTIS SCHREIBER ([id number]) [facility] ([facility]) [address] [place] [address] 27043 MCV (RBC) [Entitic vol] 93 fL Normal 80-100 [facility] Comment on above: Performed By: #### 5 7021-8 #### CURTIS SCHREIBER ([id number]) [facility] ([facility]) [address] [place] [address] 90689 Monocytes (Bld) [#/Vol] 0.81 x10*3/uL High 0.05-0.80 [facility] Comment on above: Performed By: #### 5 7021-8 #### CURTIS SCHREIBER ([id number]) [facility] ([facility]) [address] [place] [address] 66967 Monocytes/100 WBC (Bld) 9.3 % Normal 2.0-10.0 [facility] Comment on above: Performed By: #### 5 7021-8 #### CURTIS SCHREIBER ([id number]) [facility] ([facility]) [address] [place] [address] 25381 Neutrophils (Bld) [#/Vol] 5.70 x10*3/uL High 1.60-5.50 [facility] Comment on above: Result Comment: Perc ent differential counts (%) should be interpreted in the context of the absolute cell counts (cells/uL). Performed By: #### 5 7021-8 #### CURTIS SCHREIBER ([id number]) [facility] ([facility]) [address] [place] [address] 60180 Neutrophils/100 WBC (Bld) 65.2 % Normal 40.0-80.0 [facility] Comment on above: Performed By: #### 5 7021-8 #### CURTIS SCHREIBER ([id number]) [facility] ([facility]) [address] [place] [address] 24618 Nucleated RBC/100 WBC (Bld) [Ratio] 0.0 /100 WBCs Normal 0.0-0.0 [facility] Comment on above: Performed By: #### 5 7021-8 #### CURTIS SCHREIBER ([id number]) [facility] ([facility]) [address] [place] [address] 99354 Platelets (Bld) [#/Vol] 309 x10*3/uL Normal 150-450 [facility] Comment on above: Performed By: #### 5 7021-8 #### CURTIS SCHREIBER ([id number]) [facility] ([facility]) [address] [place] [address] 21874 RBC (Bld) [#/Vol] 3.39 x10*6/uL Low 4.00-5.20 [facility] Comment on above: Performed By: #### 5 7021-8 #### CURTIS SCHREIBER ([id number]) [facility] ([facility]) [address] [place] [address] 40433 WBC (Bld) [#/Vol] 8.7 x10*3/uL Normal 4.4-11.3 [facility] Comment on above: Performed By: #### 5 7021-8 #### CURTIS SCHREIBER ([id number]) [facility] ([facility]) [address] [place] [address] CBC panel Auto (Bld)on 10-12 Erythrocyte distribution width (RBC) [Ratio] 13.7 % Normal 11.5-14.5 [facility] Comment on above: Performed By: #### 5 8410-2 #### CURTIS SCHREIBER ([id number]) [facility] ([facility]) [address] [place] [address] Hematocrit (Bld) [Volume fraction] 34.2 % Low 36.0-46.0 [facility] Comment on above: Performed By: #### 5 8410-2 #### CURTIS SCHREIBER ([id number]) [facility] ([facility]) [address] [place] [address] Hemoglobin (Bld) [Mass/Vol] 10.6 g/dL Low 12.0-16.0 [facility] Comment on above: Performed By: #### 5 8410-2 #### CURTIS SCHREIBER ([id number]) [facility] ([facility]) [address] [place] [address] MCH (RBC) [Entitic mass] 28.6 pg Normal 26.0-34.0 [facility] Comment on above: Performed By: #### 5 8410-2 #### CURTIS SCHREIBER ([id number]) [facility] ([facility]) [address] [place] [address] MCHC (RBC) [Mass/Vol] 31.0 g/dL Low 32.0-36.0 [facility] Comment on above: Performed By: #### 5 8410-2 #### CURTIS SCHREIBER ([id number]) [facility] ([facility]) [address] [place] [address] MCV (RBC) [Entitic vol] 92 fL Normal 80-100 [facility] Comment on above: Performed By: #### 5 8410-2 #### CURTIS SCHREIBER ([id number]) [facility] ([facility]) [address] [place] [address] 64035 Nucleated RBC/100 WBC (Bld) [Ratio] 0.0 /100 WBCs Normal 0.0-0.0 [facility] Comment on above: Performed By: #### 5 8410-2 #### CURTIS SCHREIBER ([id number]) [facility] ([facility]) [address] [place] [address] 67243 Platelets (Bld) [#/Vol] 335 x10*3/uL Normal 150-450 [facility] Comment on above: Performed By: #### 5 8410-2 #### CURTIS SCHREIBER ([id number]) [facility] ([facility]) [address] [place] [address] 34850 RBC (Bld) [#/Vol] 3.70 x10*6/uL Low 4.00-5.20 [facility] Comment on above: Performed By: #### 5 8410-2 #### CURTIS SCHREIBER ([id number]) [facility] ([facility]) [address] [place] [address] 94332 WBC (Bld) [#/Vol] 8.0 x10*3/uL Normal 4.4-11.3 [facility] Comment on above: Performed By: #### 5 8410-2 #### CURTIS SCHREIBER ([id number]) [facility] ([facility]) [address] [place] [address] 06027 Comprehensive metabolic 2000 panelon 10-12-2024 Albumin BCP dye [Mass/Vol] 3.7 g/dL Normal 3.4-5.0 [facility] Comment on above: Performed By: #### 2 4323-8 #### CURTIS SCHREIBER ([id number]) [facility] ([facility]) [address] [place] [address] 97939 ALP [Catalytic activity/Vol] 81 U/L Normal 33-136 [facility] Comment on above: Performed By: #### 2 4323-8 #### CURTIS SCHREIBER ([id number]) [facility] ([facility]) [address] [place] [address] ALT With P-5'-P [Catalytic activity/Vol] 12 U/L Normal 7-45 [facility] Comment on above: Result Comment: Bobbi ents treated with Sulfasalazine may generate falsely decreased results for ALT. Performed By: #### 2 4323-8 #### CURTIS SCHREIBER ([id number]) [facility] ([facility]) [address] [place] [address] Anion gap [Moles/Vol] 14 mmol/L Normal 10-20 [facility] Comment on above: Performed By: #### 2 432-8 #### CURTIS SCHREIBER ([id number]) [facility] ([facility]) [address] [place] [address] 86772 AST With P-5'-P [Catalytic activity/Vol] 15 U/L Normal 9-39 [facility] Comment on above: Performed By: #### 2 4323-8 #### CURTIS SCHREIBER ([id number]) [facility] ([facility]) [address] [place] [address] 37804 Bilirubin [Mass/Vol] 0.5 mg/dL Normal 0.0-1.2 [facility] Comment on above: Performed By: #### 2 4323-8 #### CURTIS SCHREIBER ([id number]) [facility] ([facility]) [address] [place] [address] 74586 Calcium [Mass/Vol] 8.1 mg/dL Low 8.6-10.3 [facility] Comment on above: Performed By: #### 2 4323-8 #### CURTIS SCHREIBER ([id number]) [facility] ([facility]) [address] [place] [address] 30310 Chloride [Moles/Vol] 98 mmol/L Normal 98-107 [facility] Comment on above: Performed By: #### 2 4323-8 #### CURTIS SCHREIBER ([id number]) [facility] ([facility]) [address] [place] [address], [place] [address] CO2 [Moles/Vol] 24 mmol/L Normal 21-32 [facility] Comment on above: Performed By: #### 2 4323-8 #### CURTIS SCHREIBER ([id number]) [facility] ([facility]) [address] [place] [address] 27474 Creatinine [Mass/Vol] 1.52 mg/dL High 0.50-1.05 [facility] Comment on above: Performed By: #### 2 432-8 #### CURTIS SCHREIBER ([id number]) [facility] ([facility]) [address] [place] [address] 04621 Glomerular filtration rate/1.73 sq M.predicted 33 mL/min/1.73m*2 Low >60 [facility] Comment on above: Result Comment: Calc ulations of estimated GFR are performed using the 2020 CKD-EPI Study Refit equation without the race variable for the IDMS-Traceable creatinine methods. https://jasn.asnjournals.org/content/early//ASN.2020 483539 Performed By: #### 2 4323-8 #### CURTIS SCHREIBER ([id number]) [facility] ([facility]) [address] [place] [address] 41065 Glucose [Mass/Vol] 128 mg/dL High 74-99 [facility] Comment on above: Performed By: #### 2 4323-8 #### CURTIS SCHREIBER ([id number]) [facility] ([facility]) [address] [place] [address] 57207 Potassium [Moles/Vol] 4.8 mmol/L Normal 3.5-5.3 [facility] Comment on above: Performed By: #### 2 4323-8 #### CURTIS SCHREIBER ([id number]) [facility] ([facility]) [address] [place] [address] 69437 Protein [Mass/Vol] 6.4 g/dL Normal 6.4-8.2 [facility] Comment on above: Performed By: #### 2 4323-8 #### CURTIS SCHREIBER ([id number]) [facility] ([facility]) [facility] [place] [address] Sodium [Moles/Vol] 131 mmol/L Low 136-145 [facility] Comment on above: Performed By: #### 2 4323-8 #### CURTIS SCHREIBER ([id number]) [facility] ([facility]) [address] [place] [address] 33974 Urea nitrogen [Mass/Vol] 59 mg/dL High 6-23 [facility] Comment on above: Performed By: #### 2 4323-8 #### CURTIS SCHREIBER ([id number]) [facility] ([facility]) [address] [place] [address] Albumin BCP dye [Mass/Vol] 3.9 g/dL Normal 3.4-5.0 [facility] Comment on above: Performed By: #### 2 4323-8 #### CURTIS SCHREIBER ([id number]) [facility] ([facility]) [address] [place], [place] [address] ALP [Catalytic activity/Vol] 84 U/L Normal 33-136 [facility] Comment on above: Performed By: #### 2 432-8 #### CURTIS SCHREIBER ([id number]) [facility] ([facility]) [address] [place] [address] 57754 ALT With P-5'-P [Catalytic activity/Vol] 13 U/L Normal 7-45 [facility] Comment on above: Result Comment: Bobbi ents treated with Sulfasalazine may generate falsely decreased results for ALT. Performed By: #### 2 4323-8 #### CURTIS SCHREIBER ([id number]) [facility] ([facility]) [address] [place] [address] 72051 Anion gap [Moles/Vol] 15 mmol/L Normal 10-20 [facility] Comment on above: Performed By: #### 2 4323-8 #### CURTIS SCHREIBER ([id number]) [facility] ([facility]) [address] [place], [place] [address] AST With P-5'-P [Catalytic activity/Vol] 20 U/L Normal 9-39 [facility] Comment on above: Performed By: #### 2 4323-8 #### CURTIS SCHREIBER ([id number]) [facility] ([facility]) [address] [place] [address] Bilirubin [Mass/Vol] 0.5 mg/dL Normal 0.0-1.2 [facility] Comment on above: Performed By: #### 2 4323-8 #### CURTIS SCHREIBER ([id number]) [facility] ([facility]) [address] [place] [address] 85619 Calcium [Mass/Vol] 8.2 mg/dL Low 8.6-10.3 [facility] Comment on above: Performed By: #### 2 432-8 #### CURTIS SCHREIBER ([id number]) [facility] ([facility]) [address] [place] [address] 10014 Chloride [Moles/Vol] 99 mmol/L Normal 98-107 [facility] Comment on above: Performed By: #### 2 432-8 #### CURTIS SCHREIBER ([id number]) [facility] ([facility]) [address] [place] [address] 52516 CO2 [Moles/Vol] 24 mmol/L Normal 21-32 [facility] Comment on above: Performed By: #### 2 4323-8 #### CURTIS SCHREIBER ([id number]) [facility] ([facility]) [address] [place] [address] 68819 Creatinine [Mass/Vol] 0.91 mg/dL Normal 0.50-1.05 [facility] Comment on above: Performed By: #### 2 4323-8 #### CURTIS SCHREIBER ([id number]) [facility] ([facility]) [address] [place] [address] 54290 Glomerular filtration rate/1.73 sq M.predicted 61 mL/min/1.73m*2 Normal >60 [facility] Comment on above: Result Comment: Calc ulations of estimated GFR are performed using the 2020 CKD-EPI Study Refit equation without the race variable for the IDMS-Traceable creatinine methods. https://jasn.asnjournals.org/content//ASN.2020 817642 Performed By: #### 2 4323-8 #### UCRTIS SCHREIBER ([id number]) [facility] ([facility]) [address] [place] [address] 39446 Glucose [Mass/Vol] 102 mg/dL High 74-99 [facility] Comment on above: Performed By: #### 2 4323-8 #### CURTIS SCHREIBER ([id number]) [facility] ([facility]) [address] [place] [address] 32516 Potassium [Moles/Vol] 4.8 mmol/L Normal 3.5-5.3 [facility] Comment on above: Performed By: #### 2 4323-8 #### CURTIS SCHREIBER ([id number]) [facility] ([facility]) [address] [place] [address] 33173 Protein [Mass/Vol] 6.3 g/dL Low 6.4-8.2 [facility] Comment on above: Performed By: #### 2 4323-8 #### CURTIS SCHREIBER ([id number]) [facility] ([facility]) [address] [place] [address] 94528 Sodium [Moles/Vol] 133 mmol/L Low 136-145 [facility] Comment on above: Performed By: #### 2 4323-8 #### CURTIS SCHREIBER ([id number]) [facility] ([facility]) [address] [place] [address] 46066 Urea nitrogen [Mass/Vol] 41 mg/dL High 6-23 [facility] Comment on above: Performed By: #### 2 4323-8 #### CURTIS SCHREIBER ([id number]) [facility] ([facility]) [address] [place] [address] 81935 ECG 12-LEADon 10-12-2024 ECG 12-LEAD Ventricular Rate 91 Atrial Rate 91 P-R Interval 178 QRS Duration 122 Q-T Interval 378 QTC Calculation(Bazett) 464 P Alpine 51 R Alpine -27 T Alpine 38 QRS Count 14 Q Onset 221 [...] Garza ([id number]) on 10/13/2024 6:20:48 PM Normal [facility] Natriuretic peptide B [Mass/ Vol]on 10-12-2024 Natriuretic peptide B (Bld) [Mass/Vol] 48 pg/mL Normal 0-99 [facility] Comment on above: Order Comment: <100 pg/mL - Heart failure unlikely 100-299 pg/mL - Intermediate probability of acute heart failure exacerbation. Correlate with clinical context and patient history. >=300 pg/mL - Heart Failure likely. Correlate with clinical context and patient history. BNP testing is performed using different testing methodology at [facility] than at other [facility]. Direct result comparisons should only be made within the same method. Performed By: #### 3 0934-4 #### CURTIS SCHREIBER ([id number]) [facility] ([facility]) [address] [place] [address] No Panel Informationon 10-12 Interpretation and review of laboratory results Abnormal [facility] Thyrotropinon 10-12-2024 TSH Qn 0.61 m[IU]/L Normal 0.44-3.98 [facility] Comment on above: Order Comment: TSH t esting is performed using different testing methodology at [facility] than at other [facility]. Direct result comparisons should only be made within the same method. Performed By: #### 3 016-3 #### CURTIS SCHREIBER ([id number]) [facility] ([facility]) 89 [place] [address] Triacylglycerol lipaseon Lipase [Catalytic activity/Vol] 48 U/L Normal 9-82 [facility] Comment on above: Order Comment: Venip uncture immediately after or during the administration of Metamizole may lead to falsely low results. Testing should be performed immediately prior to Metamizole dosing. Performed By: #### 3 040-3 #### CURTIS SCHREIBER ([id number]) [facility] ([facility]) [address] [place] [address] Urinalysis complete W Reflex Culture panel (U)on 10-12-2024 Appearance (U) Turbid Abnormal Clear [facility] Bilirubin (U) [Mass/Vol] Negative NEGATIVE mg/dL [facility] Color (U) Light-Yellow Light-Yellow , Yellow, Dark-Yellow [facility] Glucose Auto test strip (U) [Mass/Vol] Normal Normal mg/dL [facility] Ketones (U) [Mass/Vol] Negative NEGAT HEMANT mg/dL [facility] Leukocyte esterase Auto test strip Ql (U) 500 Bryan/uL Abnormal NEGATIVE [facility] Nitrite Auto test strip Ql (U) Negative NEGATIVE [facility] pH (U) 5.5 [pH] 5.0, 5.5, 6.0, 6.5, 7.0, 7.5, 8.0 [facility] Protein (U) [Mass/Vol] 30 (1+) Abnormal NEGAT HEMANT, 10 (TRACE), 20 (TRACE) mg/dL [facility] RBC (U) [#/Vol] Negative NEGATIVE mg/dL [facility] Specific gravity (U) [Rel density] 1.019 1.005 - 1.035 [facility] Urobilinogen (U) [Mass/Vol] Normal Normal mg/dL [facility] Appearance (U) Turbid Normal Clear [facility] Comment on above: Performed By: #### 5 8077-9 #### CURTIS SCHREIBER ([id number]) [facility] ([facility]) [address] [place] [address] Bilirubin (U) [Mass/Vol] Negative Normal NEGATIVE [facility] Comment on above: Performed By: #### 5 8077-9 #### CURTIS SCHREIBER ([id number]) [facility] ([facility]) [facility] [place] [address] Color (U) Light-Yellow Normal Light-Yellow , Yellow, Dark-Yellow [facility] Comment on above: Performed By: #### 5 8077-9 #### CURTIS SCHREIBER ([id number]) [facility] ([facility]) [address] [place] [address] Glucose Auto test strip (U) [Mass/Vol] Normal Normal Normal [facility] Comment on above: Performed By: #### 5 8077-9 #### CURTIS SCHREIBER ([id number]) [facility] ([facility]) [address] [place] [address] Ketones (U) [Mass/Vol] Negative Normal NEGATIVE [facility] Comment on above: Performed By: #### 5 8077-9 #### CURTIS SCHREIBER ([id number]) [facility] ([facility]) [address] [place] [address] Leukocyte esterase Auto test strip Ql (U) 500 Bryan/uL Abnormal NEGATIVE [facility] Comment on above: Performed By: #### 5 8077-9 #### CURTIS SCHREIBER ([id number]) [facility] ([facility]) [address] [place] [address] Nitrite Auto test strip Ql (U) Negative Normal NEGATIVE [facility] Comment on above: Performed By: #### 5 8077-9 #### CURTIS SCHREIBER ([id number]) [facility] ([facility]) [address] [place] [address] pH (U) 5.5 [pH] Normal 5.0, 5.5, 6.0, 6.5, 7.0, 7.5, 8.0 [facility] Comment on above: Performed By: #### 5 8077-9 #### CURTIS SCHREIBER ([id number]) [facility] ([facility]) [address] [place], [place] [id number] Protein (U) [Mass/Vol] 30 (1+) Abnormal NEGAT HEMANT, 10 (TRACE), 20 (TRACE) [facility] Comment on above: Performed By: #### 5 8077-9 #### CURTIS SCHREIBER ([id number]) [facility] ([facility]) [address] [place] [address] RBC (U) [#/Vol] Negative Normal NEGATIVE [facility] Comment on above: Performed By: #### 5 8077-9 #### CURTIS SCHREIBER ([id number]) [facility] ([facility]) [address] [place] [address] Specific gravity (U) [Rel density] 1.019 Normal 1.005-1.035 [facility] Comment on above: Performed By: #### 5 8077-9 #### CURTIS SCHREIBER ([id number]) [facility] ([facility]) [address] [place] [address] Urobilinogen (U) [Mass/Vol] Normal Normal Normal [facility] Comment on above: Performed By: #### 5 8077-9 #### CURTIS SCHREIBER ([id number]) [facility] ([facility]) [address] [place] [address] Urinalysis microscopic panel Auto Ql (U)on 10-12-2024 Epithelial cells.squamous Auto (Urine sed) [#/Area] 10-25 (FEW) Reference range not established. /HPF [facility] Hyaline casts Auto (Urine sed) [#/Area] 1+ Abnormal NONE /LPF [facility] Mucus Auto (Urine sed) [#/Area] FEW Reference range not established. /LPF [facility] RBC Auto (Urine sed) [#/Area] 3-5 NONE, 1-2, 3-5 /HPF [facility] Transitional cells Computer assisted (U) [#/Area] 1-2 (FEW) Reference range not established. /HPF [facility] WBC Auto (Urine sed) [#/Area] 21-50 Abnormal 1-5, NONE /HPF [facility] Yeast.budding Computer assisted (U) [#/Area] PRESENT Abnormal NONE /HPF [facility] Epithelial cells.squamous Auto (Urine sed) [#/Area] 10-25 (FEW) Normal Reference range not established. [facility] Comment on above: Performed By: #### 5 3315-8 #### CURTIS SCHREIBER ([id number]) [facility] ([facility]) [address] [place] [address] Hyaline casts Auto (Urine sed) [#/Area] 1+ /LPF Abnormal NONE [facility] Comment on above: Performed By: #### 5 3315-8 #### CURTIS SCHREIBER ([id number]) [facility] ([facility]) [address] [place] [address] Mucus Auto (Urine sed) [#/Area] FEW Normal Reference range not established. [facility] Comment on above: Performed By: #### 5 3315-8 #### CURTIS SCHREIBER ([id number]) [facility] ([facility]) [address] [place] [address] RBC Auto (Urine sed) [#/Area] 3-5 Normal NONE, 1-2, 3-5 [facility] Comment on above: Performed By: #### 5 3315-8 #### CURTIS SCHREIBER ([id number]) [facility] ([facility]) [address] [place] [address] Transitional cells Computer assisted (U) [#/Area] 1-2 (FEW) Normal Reference range not established. [facility] Comment on above: Performed By: #### 5 8915-8 #### CURTIS SCHREIBER ([id number]) [facility] ([facility]) [address] [place] [address] WBC Auto (Urine sed) [#/Area] 21-50 Abnormal 1-5, NONE [facility] Comment on above: Performed By: #### 5 5-8 #### CURTIS SCHREIBER ([id number]) [facility] ([facility]) [address] [place] [address] Yeast.budding Computer assisted (U) [#/Area] PRESENT Abnormal NONE [facility] Comment on above: Performed By: #### 5 9965-8 #### CURTIS SCHREIBER ([id number]) [facility] ([facility]) [address] [place] [address] XR CHEST 1 VIEWon 10-12-2024 XR CHEST 1 VIEW Interpreted By: Erin Garrett, STUDY: XR CHEST 1 VIEW; 10/12/2024 11:40 pm INDICATION: Signs/Symptoms:dyspn ea. COMPARISON: None. ACCESSION NUMBER(S): [id number] ORDERING CLINICIAN: NICHOLE GUERRA FINDINGS: CARDIOMEDIASTINAL SILHOUETTE: [...] Erin Garrett 10/13/2024 12:00 AM Dictation workstation: [id number] [facility] XR Chest Single viewon 10-12 Radiology Study observation (narrative) [facility] Work Phone: Basic Metabolic Profile (BMP )on 10-10-2024 BUN Normal 4-19 [facility] Comment on above: Result Comment: Canc elled via OM: Order cancelled - Patient discharged Performed By: #### L 500.2500 ####[facility] [address] [place], [address] BUN/CRE Normal 10-20 [facility] Comment on above: Result Comment: Canc elled via OM: Order cancelled - Patient discharged Performed By: #### L 500.2500 ####[facility] [address] [place], [address] Calcium Normal 7.6-11.0 [facility] Comment on above: Result Comment: Canc elled via OM: Order cancelled - Patient discharged Performed By: #### L 500.2500 ####[facility] [address] [place], [address] CL Normal 98-108 [facility] Comment on above: Result Comment: Canc elled via OM: Order cancelled - Patient discharged Performed By: #### L 500.2500 ####[facility] [address] [place], [address] CO2 Normal 21.0-32.0 [facility] Comment on above: Result Comment: Canc elled via OM: Order cancelled - Patient discharged Performed By: #### L 500.2500 ####[facility] [address] [place], [address] CREAT,SERUM Normal 0.70-1.20 [facility] Comment on above: Result Comment: Canc elled via OM: Order cancelled - Patient discharged Performed By: #### L 500.2500 ####[facility] [address] [place], [address] eGFR Normal >60 [facility] Comment on above: Result Comment: Canc elled via OM: Order cancelled - Patient discharged Performed By: #### L 500.2500 ####[facility] [address] [place], [address] GAP Normal 5-15 [facility] Comment on above: Result Comment: Canc elled via OM: Order cancelled - Patient discharged Performed By: #### L 500.2500 ####[facility] [address] [place], [address] GLU Normal 70-99 [facility] Comment on above: Result Comment: Canc elled via OM: Order cancelled - Patient discharged Performed By: #### L 500.2500 ####[facility] [address] [place], [address] Potassium Normal 3.3-5.1 [facility] Comment on above: Result Comment: Canc elled via OM: Order cancelled - Patient discharged Performed By: #### L 500.2500 ####[facility] [address] [place], [address] Basic Metabolic Profile (BMP) Normal 133-145 [facility] Comment on above: Result Comment: Canc elled via OM: Order cancelled - Patient discharged Performed By: #### L 500.2500 ####[facility] [address] [place], [address] CBC-Complete Blood Cnt No Di ffon 10-10-2024 HCT Normal 37-47 [facility] Comment on above: Result Comment: Canc elled via OM: Order cancelled - Patient discharged Performed By: #### L 100.0500 ####[facility] [address] [place], [address] HGB Normal 12.0-15.0 [facility] Comment on above: Result Comment: Canc elled via OM: Order cancelled - Patient discharged Performed By: #### L 100.0500 ####[facility] [address] [place], [address] MCH Normal 27.0-32.0 [facility] Comment on above: Result Comment: Canc elled via OM: Order cancelled - Patient discharged Performed By: #### L 100.0500 ####[facility] [address] [place], [address] MCHC Normal 32-36 [facility] Comment on above: Result Comment: Canc elled via OM: Order cancelled - Patient discharged Performed By: #### L 100.0500 ####[facility] [address] [place], [address] MCV Normal 81-99 [facility] Comment on above: Result Comment: Canc elled via OM: Order cancelled - Patient discharged Performed By: #### L 100.0500 ####[facility] [address] [place], [address] PLT Normal 150-450 [facility] Comment on above: Result Comment: Canc elled via OM: Order cancelled - Patient discharged Performed By: #### L 100.0500 ####[facility] [address] [place], [address] RBC Normal 4.2-5.4 [facility] Comment on above: Result Comment: Canc elled via OM: Order cancelled - Patient discharged Performed By: #### L 100.0500 ####[facility] [address] [place], [address] RDW CV Normal 11.6-14.6 [facility] Comment on above: Result Comment: Canc elled via OM: Order cancelled - Patient discharged Performed By: #### L 100.0500 ####[facility] [address] [place], [address] RDW SD Normal 35.1-43.9 [facility] Comment on above: Result Comment: Canc elled via OM: Order cancelled - Patient discharged Performed By: #### L 100.0500 ####[facility] [address] [place], [address] WBC Normal 4.4-11.0 [facility] Comment on above: Result Comment: Canc elled via OM: Order cancelled - Patient discharged Performed By: #### L 100.0500 ####[facility] [address] [place], [address] COVID 19 AG RAPID (ALBERT Flowers)on 10-09-2024 SARS-CoV-2 (COVID-19) RNA RHYS+probe Ql (Unsp spec) Normal [facility] Comment on above: Performed By: #### M 100.505 ####[facility] [address] [place], [address] COVID-19 virus antigen assay Ordered By: Santino Haas on 10-09-2024 SARS-CoV-2 (COVID-19) Ag IA.rapid Ql (Resp) [facility] Anion gap in Serum or Plasma Ordered By: Santino Haas on 10-08-2024 Anion gap [Moles/Vol] 13 mmol/L 5-15 [facility] BUN/creatinine ratioOrdered By: Santino Haas on 10-08-2024 Urea nitrogen/Creatinine [Mass ratio] 23.6 mg/mg High - [facility] Basic Metabolic Profile (BMP )on 10-08-2024 BUN/CRE 23.6 RATIO High - [facility] Comment on above: Performed By: #### L 500.2500 ####[facility] [address] [place], [address] Calcium [Mass/Vol] 8.3 mg/dL Normal 7.6-11.[address] [facility] Comment on above: Performed By: #### L 500.2500 ####[facility] [address] [place], [address] Chloride [Moles/Vol] 99 mmol/L Normal 98-108 [facility] Comment on above: Performed By: #### L 500.2500 ####[facility] [address] [place], [address] CO2 [Moles/Vol] 21.3 mmol/L Normal 21.0-32.0 [facility] Comment on above: Performed By: #### L 500.2500 ####[facility] [address] [place], [address] Creatinine [Mass/Vol] 0.86 mg/dL Normal 0.70-1.20 [facility] Comment on above: Performed By: #### L 500.2500 ####[facility] [address] [place], [address] ECRCL 39.07 ml/min Low 50-250 [facility] Comment on above: Performed By: #### L 500.2500 ####[facility] [address] [place], [address] GAP 13 Normal 5-15 [facility] Comment on above: Performed By: #### L 500.2500 ####[facility] [address] [place], [address] GFR/1.73 sq M.predicted among non-blacks MDRD (S/P/Bld) [Vol rate/Area] 65 mL/min/{1.73_m2} Normal >60 [facility] Comment on above: Result Comment: mL/m in/1.73m2 CKD-EPI Creatinine Equation (2020) Performed By: #### L 500.2500 ####[facility] [address] [place], [address] Glucose [Mass/Vol] 120 mg/dL High 70-[address] [facility] Comment on above: Performed By: #### L 500.2500 ####[facility] [address] [place], [address] Potassium [Moles/Vol] 4.7 mmol/L Normal 3.3-5.1 [facility] Comment on above: Performed By: #### L 500.2500 ####[facility] [address] [place], [address] Sodium [Moles/Vol] 132 mmol/L Low 133-[address] [facility] Comment on above: Performed By: #### L 500.2500 ####[facility] [address] [place], [address] Urea nitrogen [Mass/Vol] 20 mg/dL High 4-19 [facility] Comment on above: Performed By: #### L 500.2500 ####[facility] [address] [place], [address] CBC-Complete Blood Cnt No Di ffon 10-08-2024 Erythrocyte distribution width (RBC) [Ratio] 13.4 % Normal 11.6-14.6 [facility] Comment on above: Performed By: #### L 100.0500 ####[facility] [address] [place], [address] Hematocrit (Bld) [Volume fraction] 35.4 % Low 37-47 [facility] Comment on above: Performed By: #### L 100.0500 ####[facility] [address] [place], [address] Hemoglobin (Bld) [Mass/Vol] 11.3 g/dL Low 12.0-15.0 [facility] Comment on above: Performed By: #### L 100.0500 ####[facility] [address] [place], [address] MCH (RBC) [Entitic mass] 28.8 pg Normal 27.0-32.0 [facility] Comment on above: Performed By: #### L 100.0500 ####[facility] [address] [place], [address] MCHC (RBC) [Mass/Vol] 31.9 g/dL Low 32-36 [facility] Comment on above: Performed By: #### L 100.0500 ####[facility] [address] [place], [address] MCV (RBC) [Entitic vol] 90.1 fL Normal 81-[address] [facility] Comment on above: Performed By: #### L 100.0500 ####[facility] [address] [place], [address] Platelet mean volume (Bld) [Entitic vol] 9.5 fL Normal 6.2-12.0 [facility] Comment on above: Performed By: #### L 100.0500 ####[facility] [address] [place], [address] Platelets (Bld) [#/Vol] 377 10*3/uL Normal 150-450 [facility] Comment on above: Performed By: #### L 100.0500 ####[facility] [address] [place], [address] RBC (Bld) [#/Vol] 3.93 10*6/uL Low 4.2-5.[address] [facility] Comment on above: Performed By: #### L 100.0500 ####[facility] [address] [place], [address] RDW SD 44.8 fl High 35.1-43.9 [facility] Comment on above: Performed By: #### L 100.0500 ####[facility] [address] [place], [address] WBC (Bld) [#/Vol] 8.0 10*3/uL Normal 4.4-11.[address] [facility] Comment on above: Performed By: #### L 100.0500 ####[facility] [address] [place], [address] Carbon dioxide, total [Moles /volume] in Central venous bloodOrdered By: Santino Haas on 10-08-2024 CO2 [Moles/Vol] 21.3 mmol/L 21.0-32.0 [facility] Chloride assayOrdered By: Charly Haas on 10-08-2024 Chloride [Moles/Vol] 99 mmol/L 98-108 [facility] Erythrocyte distribution wid th ratioOrdered By: Santino Haas on 10-08-2024 Erythrocyte distribution width (RBC) [Ratio] 13.4 % 11.6-14.6 [facility] Erythrocyte distribution wid th standard deviationOrdered By: Santino Haas on 10-08-2024 Erythrocyte distribution width (RBC) [Ratio] 44.8 fl High 35.1-43.9 [facility] Glomerular filtration rate ( GFR) estimation/1.73 sq m using serum, plasma, or whole bOrdered By: Santino Haas on 10-08-2024 GFR/1.73 sq M.predicted among non-blacks MDRD (S/P/Bld) [Vol rate/Area] 65 mL/min/{1.73_m2} >60 [facility] Hematocrit Auto (Bld) [Volum e fraction]Ordered By: Santino Haas on 10-08-2024 Hematocrit (Bld) [Volume fraction] 35.4 % Low 37-47 [facility] Hemoglobin measurementOrdere d By: Santino Haas on 10-08-2024 Hemoglobin (Bld) [Mass/Vol] 11.3 g/dL Low 12.0-15.0 [facility] MCV (mean corpuscular volume ) determinationOrdered By: Santino Haas on 10-08-2024 MCV (RBC) [Entitic vol] 90.1 fL 81-[address] [facility] Mean corpuscular hemoglobin (MCH) determinationOrdered By: Santino Haas on 10-08-2024 MCH (RBC) [Entitic mass] 28.8 pg 27.0-32.0 [facility] Platelet countOrdered By: Charly Haas on 10-08-2024 Platelets (Bld) [#/Vol] 377 10*3/uL 150-450 [facility] Potassium measurement (mass/ volume)Ordered By: Santino Haas on 10-08-2024 Potassium (Unsp spec) [Mass/Vol] 4.7 mmol/L 3.3-5.1 [facility] RBC Auto (Bld) [#/Vol]Ordere d By: Santino Haas on 10-08-2024 RBC (Bld) [#/Vol] 3.93 10*6/uL Low 4.2-5.[address] [facility] Serum creatinine measurement (mass/volume)Ordered By: Santino Haas on 10-08-2024 Creatinine [Mass/Vol] 0.86 mg/dL 0.70-1.20 [facility] Serum glucose measurement (m ass/volume)Ordered By: Santino Haas on 10-08-2024 Glucose [Mass/Vol] 120 mg/dL High 70-[address] [facility] Serum or plasma calcium manuel urement (mass/volume)Ordered By: Santino Haas on 10-08-2024 Calcium [Mass/Vol] 8.3 mg/dL 7.6-11.[address] [facility] Serum or plasma urea nitroge n measurement (mass/volume)Ordered By: Santino Haas on 10-08-2024 Urea nitrogen [Mass/Vol] 20 mg/dL High 4-19 [facility] Sodium levelOrdered By: Ken Haas on 10-08-2024 Sodium [Moles/Vol] 132 mmol/L Low 133-[address] [facility] White blood cell (WBC) count Ordered By: Santino Haas on 10-08-2024 WBC (Bld) [#/Vol] 8.0 10*3/uL 4.4-11.[address] [facility] Basic Metabolic Profile (BMP )on 10-06-2024 BUN/CRE 24.0 RATIO High 10-20 [facility] Comment on above: Performed By: #### L 500.2500 ####[facility] [address] [place], [address] Calcium [Mass/Vol] 7.9 mg/dL Normal 7.6-11.[address] [facility] Comment on above: Performed By: #### L 500.2500 ####[facility] [address] [place], [address] Chloride [Moles/Vol] 98 mmol/L Normal 98-108 [facility] Comment on above: Performed By: #### L 500.2500 ####[facility] [address] [place], [address] CO2 [Moles/Vol] 24.8 mmol/L Normal 21.0-32.0 [facility] Comment on above: Performed By: #### L 500.2500 ####[facility] [address] [place], [address] Creatinine [Mass/Vol] 0.77 mg/dL Normal 0.70-1.20 [facility] Comment on above: Performed By: #### L 500.2500 ####[facility] [address] [place], [address] ECRCL 43.29 ml/min Low 50-250 [facility] Comment on above: Performed By: #### L 500.2500 ####[facility] [address] [place], [address] GAP 11 Normal 5-15 [facility] Comment on above: Performed By: #### L 500.2500 ####[facility] [address] [place], [address] GFR/1.73 sq M.predicted among non-blacks MDRD (S/P/Bld) [Vol rate/Area] 74 mL/min/{1.73_m2} Normal >60 [facility] Comment on above: Result Comment: mL/m in/1.73m2 CKD-EPI Creatinine Equation (2020) Performed By: #### L 500.2500 ####[facility] [address] [place], [address] Glucose [Mass/Vol] 98 mg/dL Normal 70-[address] [facility] Comment on above: Performed By: #### L 500.2500 ####[facility] [address] [place], [address] Potassium [Moles/Vol] 3.9 mmol/L Normal 3.3-5.1 [facility] Comment on above: Performed By: #### L 500.2500 ####[facility] [address] [place], [address] Sodium [Moles/Vol] 134 mmol/L Normal 133-[address] [facility] Comment on above: Performed By: #### L 500.2500 ####[facility] [address] [place], [address] Urea nitrogen [Mass/Vol] 18 mg/dL Normal 4-19 [facility] Comment on above: Performed By: #### L 500.2500 ####[facility] [address] [place], [address] CBC-Complete Blood Cnt No Di ffon 10-06-2024 Erythrocyte distribution width (RBC) [Ratio] 13.3 % Normal 11.6-14.6 [facility] Comment on above: Performed By: #### L 100.0500 ####[facility] [address] [place], [address] Hematocrit (Bld) [Volume fraction] 32.2 % Low 37-47 [facility] Comment on above: Performed By: #### L 100.0500 ####[facility] [address] [place], [address] Hemoglobin (Bld) [Mass/Vol] 10.2 g/dL Low 12.0-15.0 [facility] Comment on above: Performed By: #### L 100.0500 ####[facility] [address] [place], [address] MCH (RBC) [Entitic mass] 29.2 pg Normal 27.0-32.0 [facility] Comment on above: Performed By: #### L 100.0500 ####[facility] [address] [place], [address] MCHC (RBC) [Mass/Vol] 31.7 g/dL Low 32-36 [facility] Comment on above: Performed By: #### L 100.0500 ####[facility] [address] [place], [address] MCV (RBC) [Entitic vol] 92.3 fL Normal 81-[address] [facility] Comment on above: Performed By: #### L 100.0500 ####[facility] [address] [place], [address] Platelet mean volume (Bld) [Entitic vol] 9.5 fL Normal 6.2-12.0 [facility] Comment on above: Performed By: #### L 100.0500 ####[facility] [address] [place], [address] Platelets (Bld) [#/Vol] 329 10*3/uL Normal 150-450 [facility] Comment on above: Performed By: #### L 100.0500 ####[facility] [address] [place], [address] RBC (Bld) [#/Vol] 3.49 10*6/uL Low 4.2-5.[address] [facility] Comment on above: Performed By: #### L 100.0500 ####[facility] [address] [place], [address] RDW SD 45.1 fl High 35.1-43.9 [facility] Comment on above: Performed By: #### L 100.0500 ####[facility] [address] [place], [address] WBC (Bld) [#/Vol] 7.6 10*3/uL Normal 4.4-11.[address] [facility] Comment on above: Performed By: #### L 100.0500 ####[facility] [address] [place], [address] Calculated very low density lipoprotein (VLDL) cholesterol measurementOrdered By: Jaiden Worthington on 10-05-2024 Calculated very low density lipoprotein (VLDL) cholesterol measurement 16 mg/dL 5-40 [facility] LDL calc ser/plasOrdered By: Jaiden Worthington on 10-05-2024 Cholesterol in LDL [Mass/Vol] 49 mg/dL [facility] Lipid Profileon 10-05-2024 CHOL:HDL 1.60 Normal [facility] Comment on above: Performed By: #### L 500.4100 ####[facility] [address] [place], [address] Cholesterol [Mass/Vol] 173 mg/dL Normal <=200 [facility] Comment on above: Result Comment: Chol esterol level, Desirable <200 mg/dLBorderline high cholesterol 200-239 mg/dLHigh cholesterol >=240 mg/dLRecommendations of the NCEP Adult Treatment Panel for thefollowing risk-cutoff thresholds for the [place] Americanpulation. Performed By: #### L 500.4100 ####[facility] [address] [place], [address] Cholesterol in HDL [Mass/Vol] 108 mg/dL Normal [facility] Comment on above: Result Comment: Arely onal Cholesterol Education Program (NCEP) guidelines:<40 mg/dL: Low HDL-cholesterol (major risk factor for CHD)>= 60 mg/dL: High HDL-cholesterol (negative risk factor forCHD)HDL-cholesterol is affected by a number of factors, e.g.smoking, exercise, hormones, sex and age. Performed By: #### L 500.4100 ####[facility] [address] [place], [address] Cholesterol in LDL [Mass/Vol] 49 mg/dL Normal [facility] Comment on above: Result Comment: Bord hzvjvg=602-905 mg/dL Higher Dvrd=215 mg/dL or greater Performed By: #### L 500.4100 ####[facility] [address] [place], [address] Cholesterol in VLDL [Mass/Vol] 16 mg/dL Normal 5-40 [facility] Comment on above: Performed By: #### L 500.4100 ####[facility] [address] [place], [address] Triglyceride [Mass/Vol] 78 mg/dL Normal [facility] Comment on above: Result Comment: The drugs N-Acetylcysteine and Metamizole may falselydepress this assay.Normal range: <150 mg/dLBorderline High: 150-199 mg/dLHigh: 200-499 mg/dLVery High: >500 mg/dL Performed By: #### L 500.4100 ####[facility] [address] [place], [address] MR/CON.PCM.NEon 10-05-2024 MR/CON.PCM.NE Normal [facility] Serum or plasma cholesterol in HDL measurement (mass/volume)Ordered By: Jaiden Worthington on 10-05-2024 Cholesterol in HDL [Mass/Vol] 108 mg/dL >40 [facility] Serum or plasma cholesterol measurement (mass/volume)Ordered By: Jaiden Worthington on 10-05-2024 Cholesterol [Mass/Vol] 173 mg/dL <201 [facility] Urine Cultureon 10-05-2024 URC Organism is too fastidious for routine susceptibility studies. Urine Culture Urine Culture Aerococcus urinae Viola Count 80,000-100,000 Normal [facility] Comment on above: Performed By: #### M 100.2200 ####[facility] [address] [place], [place], [id number] Absolute lymphocyte countOrd ered By: Juan José Thorpe on 10-04-2024 Lymphocytes Auto (Unsp spec) [#/Vol] 1.42 10*3/uL 0.83-4.51 [facility] Alcohol, Blood (Medical)-Ser umon 10-04-2024 SERUM ETOH < 10.1 Normal <=10.0 [facility] Comment on above: Result Comment: This test is for medical purposes only. The legaldefinition of intoxication varies according to local law. Performed By: #### L 501.5200, L501.9100 ####[facility] [address] [place], [place], [id number] Automated lymphocyte count a s percentage of total leukocytesOrdered By: Juan José Thorpe on 10-04-2024 Lymphocytes/100 WBC Auto (Unsp spec) 14.8 % Low 19-41 [facility] Basophil percentageOrdered B y: Juan José Thorpe on 10-04-2024 Basophils/100 WBC (Bld) 0.6 % Normal 0-[address] [facility] Comment on above: Performed By: #### L 501.9520, L501.2300, L100.0100, L500.4050 ####[facility] [address] [place], [place], [id number] Bilirubin, totalOrdered By: Juan José Thorpe on 10-04-2024 Bilirubin [Mass/Vol] 0.41 mg/dL 0.00-1.30 [facility] Brain without Contraston Brain without Contrast Normal [facility] CBC W/Diff, Automatedon 09-10 Absolute Lymph 1.42 X10 3/uL Normal 0.83-4.51 [facility] Comment on above: Performed By: #### L 501.9520, L501.2300, L100.0100, L500.4050 ####[facility] [address] [place], [address] Absolute Neut 6.8 X10 3/uL Normal 2.0-7.7 [facility] Comment on above: Performed By: #### L 501.9520, L501.2300, L100.0100, L500.4050 ####[facility] [address] [place], [address] Erythrocyte distribution width (RBC) [Ratio] 13.3 % Normal 11.6-14.6 [facility] Comment on above: Performed By: #### L 501.9520, L501.2300, L100.0100, L500.4050 ####[facility] [address] [place], [address] Hematocrit (Bld) [Volume fraction] 34.0 % Low 37-47 [facility] Comment on above: Performed By: #### L 501.9520, L501.2300, L100.0100, L500.4050 ####[facility] [address] [place], [address] Hemoglobin (Bld) [Mass/Vol] 10.8 g/dL Low 12.0-15.0 [facility] Comment on above: Performed By: #### L 501.9520, L501.2300, L100.0100, L500.4050 ####[facility] [address] [place], [address] IG% 0.600 Normal 0.0-0.9 [facility] Comment on above: Result Comment: IG% - Immature Granulocytes (promyelocytes, myelocytes andmetamyelocytes) > 1% indicates that a LEFT SHIFT is Present. Performed By: #### L 501.9520, L501.2300, L100.0100, L500.4050 ####[facility] [address] [place], [address] Lymphocytes/100 WBC (Bld) 14.8 % Low 19-41 [facility] Comment on above: Performed By: #### L 501.9520, L501.2300, L100.0100, L500.4050 ####[facility] [address] [place], [address] MCH (RBC) [Entitic mass] 29.0 pg Normal 27.0-32.0 [facility] Comment on above: Performed By: #### L 501.9520, L501.2300, L100.0100, L500.4050 ####[facility] [address] [place], [address] MCHC (RBC) [Mass/Vol] 31.8 g/dL Low 32-36 [facility] Comment on above: Performed By: #### L 501.9520, L501.2300, L100.0100, L500.4050 ####[facility] [address] [place], [address] MCV (RBC) [Entitic vol] 91.2 fL Normal 81-[address] [facility] Comment on above: Performed By: #### L 501.9520, L501.2300, L100.0100, L500.4050 ####[facility] [address] [place], [address] Nucleated RBC (Bld) [#/Vol] 0 10*3/uL Normal 0-5 [facility] Comment on above: Performed By: #### L 501.9520, L501.2300, L100.0100, L500.4050 ####[facility] [address] [place], [address] Platelet mean volume (Bld) [Entitic vol] 9.3 fL Normal 6.2-12.0 [facility] Comment on above: Performed By: #### L 501.9520, L501.2300, L100.0100, L500.4050 ####[facility] [address] [place], [address] Platelets (Bld) [#/Vol] 379 10*3/uL Normal 150-450 [facility] Comment on above: Performed By: #### L 501.9520, L501.2300, L100.0100, L500.4050 ####[facility] [address] [place], [address] RBC (Bld) [#/Vol] 3.73 10*6/uL Low 4.2-5.[address] [facility] Comment on above: Performed By: #### L 501.9520, L501.2300, L100.0100, L500.4050 ####[facility] [address] [place], [address] RDW SD 44.9 fl High 35.1-43.9 [facility] Comment on above: Performed By: #### L 501.9520, L501.2300, L100.0100, L500.4050 ####[facility] [address] [place], [address] WBC (Bld) [#/Vol] 9.6 10*3/uL Normal 4.4-11.[address] [facility] Comment on above: Performed By: #### L 501.9520, L501.2300, L100.0100, L500.4050 ####[facility] [address] [place], [address] Comprehensive Metabolic Prof [facility] 10-04-2024 Albumin [Mass/Vol] 3.8 g/dL Normal 3.4-4.[address] [facility] Comment on above: Performed By: #### L 501.9520, L501.2300, L100.0100, L500.4050 ####[facility] [address] [place], [address] Albumin/Globulin [Mass ratio] 1.4 {ratio} Normal 0.9-2.4 [facility] Comment on above: Performed By: #### L 501.9520, L501.2300, L100.0100, L500.4050 ####[facility] [address] [place], [address] ALK PHOS 88 U/L Normal 35-104 [facility] Comment on above: Performed By: #### L 501.9520, L501.2300, L100.0100, L500.4050 ####[facility] [address] [place], [address] ALT [Catalytic activity/Vol] 12 U/L Normal <=34 [facility] Comment on above: Performed By: #### L 501.9520, L501.2300, L100.0100, L500.4050 ####[facility] [address] [place], [address] AST [Catalytic activity/Vol] 28 U/L Normal <=31 [facility] Comment on above: Performed By: #### L 501.9520, L501.2300, L100.0100, L500.4050 ####[facility] [address] [place], [address] Bilirubin [Mass/Vol] 0.41 mg/dL Normal 0.00-1.30 [facility] Comment on above: Performed By: #### L 501.9520, L501.2300, L100.0100, L500.4050 ####[facility] [address] [place], [address] BUN/CRE 31.8 RATIO High 10-20 [facility] Comment on above: Performed By: #### L 501.9520, L501.2300, L100.0100, L500.4050 ####[facility] [address] [place], [address] Calcium [Mass/Vol] 8.3 mg/dL Normal 7.6-11.[address] [facility] Comment on above: Performed By: #### L 501.9520, L501.2300, L100.0100, L500.4050 ####[facility] [address] [place], [address] Chloride [Moles/Vol] 97 mmol/L Low 98-108 [facility] Comment on above: Performed By: #### L 501.9520, L501.2300, L100.0100, L500.4050 ####[facility] [address] [place], [address] CO2 [Moles/Vol] 26.0 mmol/L Normal 21.0-32.0 [facility] Comment on above: Performed By: #### L 501.9520, L501.2300, L100.0100, L500.4050 ####[facility] [address] [place], [address] Creatinine [Mass/Vol] 0.93 mg/dL Normal 0.70-1.20 [facility] Comment on above: Performed By: #### L 501.9520, L501.2300, L100.0100, L500.4050 ####[facility] [address] [place], [address] ECRCL 36.11 ml/min Low 50-250 [facility] Comment on above: Performed By: #### L 501.9520, L501.2300, L100.0100, L500.4050 ####[facility] [address] [place], [address] GAP 13 Normal 5-15 [facility] Comment on above: Performed By: #### L 501.9520, L501.2300, L100.0100, L500.4050 ####[facility] [address] [place], [address] GFR/1.73 sq M.predicted among non-blacks MDRD (S/P/Bld) [Vol rate/Area] 59 mL/min/{1.73_m2} Low >60 [facility] Comment on above: Result Comment: mL/m in/1.73m2 CKD-EPI Creatinine Equation (2020) Performed By: #### L 501.9520, L501.2300, L100.0100, L500.4050 ####[facility] [address] [place], [address] Globulin (S) [Mass/Vol] 2.7 g/dL Normal 2.2-4.2 [facility] Comment on above: Performed By: #### L 501.9520, L501.2300, L100.0100, L500.4050 ####[facility] [address] [place], [address] Glucose [Mass/Vol] 141 mg/dL High 70-[address] [facility] Comment on above: Performed By: #### L 501.9520, L501.2300, L100.0100, L500.4050 ####[facility] [address] [place], [address] Potassium [Moles/Vol] 3.6 mmol/L Normal 3.3-5.1 [facility] Comment on above: Performed By: #### L 501.9520, L501.2300, L100.0100, L500.4050 ####[facility] [address] [place], [address] Sodium [Moles/Vol] 136 mmol/L Normal 133-[address] [facility] Comment on above: Performed By: #### L 501.9520, L501.2300, L100.0100, L500.4050 ####[facility] [address] [place], [address] T PROT 6.4 g/dL Normal 5.9-8.4 [facility] Comment on above: Performed By: #### L 501.9520, L501.2300, L100.0100, L500.4050 ####[facility] [address] [place], [address] Urea nitrogen [Mass/Vol] 30 mg/dL High 4-19 [facility] Comment on above: Performed By: #### L 501.9520, L501.2300, L100.0100, L500.4050 ####[facility] [address] [place], [address] Eosinophil percentageOrdered By: Juan José Thorpe on 10-04-2024 Eosinophils/100 WBC (Bld) 1.1 % Normal 0-5 [facility] Comment on above: Performed By: #### L 501.9520, L501.2300, L100.0100, L500.4050 ####[facility] [address] [place], [address] Immature granulocytes/100 WB C Auto (Bld)Ordered By: Juan José Thorpe on 10-04-2024 Immature granulocytes/100 WBC (Bld) 0.600 % 0.0-0.9 [facility] Magnesiumon 10-04-2024 Magnesium [Mass/Vol] 3.4 mg/dL High 1.5-2.2 [facility] Comment on above: Performed By: #### L 501.5200, L501.9100 ####[facility] [address] [place], [address] Magnetic resonance imaging r eportOrdered By: Wilner Meredith on 10-04-2024 Study report [facility] Monocyte percentageOrdered B y: Juan José Thorpe on 10-04-2024 Monocytes/100 WBC (Bld) 11.6 % High 0-[address] [facility] Comment on above: Performed By: #### L 501.9520, L501.2300, L100.0100, L500.4050 ####[facility] [address] [place], [address] Neutrophil percentageOrdered By: Juan José Thorpe on 10-04-2024 Neutrophils/100 WBC (Bld) 71.3 % High 47-70 [facility] Comment on above: Performed By: #### L 501.9520, L501.2300, L100.0100, L500.4050 ####[facility] [address] [place], [address] No Panel InformationOrdered By: Juan José Thorpe on 10-04-2024 28 U/L <32 [facility] Phosphoruson 10-04-2024 Phosphate [Mass/Vol] 2.5 mg/dL Low 2.7-4.5 [facility] Comment on above: Performed By: #### L 501.9520, L501.2300, L100.0100, L500.4050 ####[facility] [address] [facility] [place], [address] Serum globulin measurementOr dered By: Juan José Thorpe on 10-04-2024 Globulin (S) [Mass/Vol] 2.7 g/dL 2.2-4.2 [facility] Serum or plasma alanine clifton otransferase (ALT) measurementOrdered By: Juan José Thorpe on 10-04-2024 ALT [Catalytic activity/Vol] 12 U/L <35 [facility] Serum or plasma albumin manuel urement (mass/volume)Ordered By: Juan José Thorpe on 10-04-2024 Albumin [Mass/Vol] 3.8 g/dL 3.4-4.[address] [facility] Serum or plasma albumin/glob ulin mass ratioOrdered By: Juan José Thorpe on 10-04-2024 Albumin/Globulin [Mass ratio] 1.4 {ratio} 0.9-2.4 [facility] Serum or plasma alkaline bibi sphatase measurementOrdered By: Juan José Thorpe on 10-04-2024 ALP [Catalytic activity/Vol] 88 U/L 35-104 [facility] TSH DL <= 0.005 mIU/L QnOrde red By: Juan José Thorpe on 10-04-2024 TSH Qn 0.373 uIU/mL 0.300-4.200 [facility] Thyroid Stim Hormone (TSH)on 10-04-2024 TSH 0.373 uIU/mL Normal 0.300-4.200 [facility] Comment on above: Performed By: #### L 501.9520, L501.2300, L100.0100, L500.4050 ####[facility] [address] [place], [place], [address] Total proteinOrdered By: Obed Thorpe on 10-04-2024 Protein [Mass/Vol] 6.4 g/dL 5.9-8.[address] [facility] Urine Cultureon 10-04-2024 URC Organism is too fastidious for routine susceptibility studies. Aerococcus urinae Viola Count 80,000-100,000 Normal [facility] Comment on above: Performed By: #### M 100.2200 ####[facility] [address] [facility] [place], [place], [id number] 12 Lead EKGon 10-03-2024 12 Lead EKG Normal [facility] Absolute lymphocyte countOrd ered By: Diana Snow on 10-03-2024 Lymphocytes Auto (Unsp spec) [#/Vol] 0.99 10*3/uL 0.83-4.51 [facility] Amphetamine detection with 1 000 ng/mL as cutoffOrdered By: Diana Snow on 10-03-2024 Amphetamines Screen method >1000 ng/mL Ql (U) Negative < 200 ng/mL [facility] Anion gap in Serum or Plasma Ordered By: Diana Snow on 10-03-2024 Anion gap [Moles/Vol] 11 mmol/L 5-15 [facility] Automated lymphocyte count a s percentage of total leukocytesOrdered By: Diana Snow on 10-03-2024 Lymphocytes/100 WBC Auto (Unsp spec) 9.6 % Low 19-41 [facility] BUN/creatinine ratioOrdered By: Diana Snow on 10-03-2024 Urea nitrogen/Creatinine [Mass ratio] 33.3 mg/mg High 10-20 [facility] Basic Metabolic Profile (BMP )on 10-03-2024 BUN/CRE 33.3 RATIO High 10-20 [facility] Comment on above: Performed By: #### L 100.0100, L500.2500 ####[facility] [address] [place], [address] Calcium [Mass/Vol] 8.4 mg/dL Normal 7.6-11.[address] [facility] Comment on above: Performed By: #### L 100.0100, L500.2500 ####[facility] [address] [place], [address] Chloride [Moles/Vol] 96 mmol/L Low 98-108 [facility] Comment on above: Performed By: #### L 100.0100, L500.2500 ####[facility] [address] [place], [address] CO2 [Moles/Vol] 28.4 mmol/L Normal 21.0-32.0 [facility] Comment on above: Performed By: #### L 100.0100, L500.2500 ####[facility] [address] [place], [address] Creatinine [Mass/Vol] 1.04 mg/dL Normal 0.70-1.20 [facility] Comment on above: Performed By: #### L 100.0100, L500.2500 ####[facility] [address] [place], [address] ECRCL 35.97 ml/min Low 50-250 [facility] Comment on above: Performed By: #### L 100.0100, L500.2500 ####[facility] [address] [place], [address] GAP 11 Normal 5-15 [facility] Comment on above: Performed By: #### L 100.0100, L500.2500 ####[facility] [address] [place], [address] GFR/1.73 sq M.predicted among non-blacks MDRD (S/P/Bld) [Vol rate/Area] 52 mL/min/{1.73_m2} Low >60 [facility] Comment on above: Result Comment: mL/m in/1.73m2 CKD-EPI Creatinine Equation (2020) Performed By: #### L 100.0100, L500.2500 ####[facility] [address] [place], [address] Glucose [Mass/Vol] 121 mg/dL High 70-[address] [facility] Comment on above: Performed By: #### L 100.0100, L500.2500 ####[facility] [address] [place], [address] Potassium [Moles/Vol] 4.2 mmol/L Normal 3.3-5.1 [facility] Comment on above: Performed By: #### L 100.0100, L500.2500 ####[facility] [address] [place], [address] Sodium [Moles/Vol] 134 mmol/L Normal 133-[address] [facility] Comment on above: Performed By: #### L 100.0100, L500.2500 ####[facility] [address] [place], [address] Urea nitrogen [Mass/Vol] 35 mg/dL High 4-19 [facility] Comment on above: Performed By: #### L 100.0100, L500.2500 ####[facility] [address] [place], [address] Basophil percentageOrdered B y: Diana Snow on 10-03-2024 Basophils/100 WBC (Bld) 0.3 % 0-[address] [facility] Bilirubin Test strip Ql (U)O rdered By: Diana Snow on 10-03-2024 Bilirubin Ql (U) Negative Negative [facility] Brain/Head without Contrasto n 10-03-2024 Brain/Head without Contrast Normal [facility] CBC W/Diff, Automatedon 09-10 Absolute Lymph 0.99 X10 3/uL Normal 0.83-4.51 [facility] Comment on above: Performed By: #### L 100.0100, L500.2500 ####[facility] [address] [place], [address] Absolute Neut 8.2 X10 3/uL High 2.0-7.7 [facility] Comment on above: Performed By: #### L 100.0100, L500.2500 ####[facility] [address] [place], [address] Basophils/100 WBC (Bld) 0.3 % Normal 0-[address] [facility] Comment on above: Performed By: #### L 100.0100, L500.2500 ####[facility] [address] [place], [address] Eosinophils/100 WBC (Bld) 0.1 % Normal 0-5 [facility] Comment on above: Performed By: #### L 100.0100, L500.2500 ####[facility] [address] [place], [address] Erythrocyte distribution width (RBC) [Ratio] 13.3 % Normal 11.6-14.6 [facility] Comment on above: Performed By: #### L 100.0100, L500.2500 ####[facility] [address] [place], [address] Hematocrit (Bld) [Volume fraction] 32.2 % Low 37-47 [facility] Comment on above: Performed By: #### L 100.0100, L500.2500 ####[facility] [address] [place], [address] Hemoglobin (Bld) [Mass/Vol] 10.4 g/dL Low 12.0-15.0 [facility] Comment on above: Performed By: #### L 100.0100, L500.2500 ####[facility] [address] [place], [address] IG% 0.600 Normal 0.0-0.9 [facility] Comment on above: Result Comment: IG% - Immature Granulocytes (promyelocytes, myelocytes andmetamyelocytes) > 1% indicates that a LEFT SHIFT is Present. Performed By: #### L 100.0100, L500.2500 ####[facility] [address] [place], [address] Lymphocytes/100 WBC (Bld) 9.6 % Low 19-41 [facility] Comment on above: Performed By: #### L 100.0100, L500.2500 ####[facility] [address] [place], [address] MCH (RBC) [Entitic mass] 29.4 pg Normal 27.0-32.0 [facility] Comment on above: Performed By: #### L 100.0100, L500.2500 ####[facility] [address] [place], [address] MCHC (RBC) [Mass/Vol] 32.3 g/dL Normal 32-36 [facility] Comment on above: Performed By: #### L 100.0100, L500.2500 ####[facility] [address] [place], [address] MCV (RBC) [Entitic vol] 91.0 fL Normal 81-[address] [facility] Comment on above: Performed By: #### L 100.0100, L500.2500 ####[facility] [address] [place], [address] Monocytes/100 WBC (Bld) 9.8 % Normal 0-[address] [facility] Comment on above: Performed By: #### L 100.0100, L500.2500 ####[facility] [address] [place], [address] Neutrophils/100 WBC (Bld) 79.6 % High 47-70 [facility] Comment on above: Performed By: #### L 100.0100, L500.2500 ####[facility] [address] [place], [address] Nucleated RBC (Bld) [#/Vol] 0 10*3/uL Normal 0-5 [facility] Comment on above: Performed By: #### L 100.0100, L500.2500 ####[facility] [address] [place], [address] Platelet mean volume (Bld) [Entitic vol] 9.2 fL Normal 6.2-12.0 [facility] Comment on above: Performed By: #### L 100.0100, L500.2500 ####[facility] [address] [place], [address] Platelets (Bld) [#/Vol] 368 10*3/uL Normal 150-450 [facility] Comment on above: Performed By: #### L 100.0100, L500.2500 ####[facility] [address] [place], [address] RBC (Bld) [#/Vol] 3.54 10*6/uL Low 4.2-5.[address] [facility] Comment on above: Performed By: #### L 100.0100, L500.2500 ####[facility] [address] [place], [address] RDW SD 44.4 fl High 35.1-43.9 [facility] Comment on above: Performed By: #### L 100.0100, L500.2500 ####[facility] [address] [place], [address] WBC (Bld) [#/Vol] 10.3 10*3/uL Normal 4.4-11.[address] [facility] Comment on above: Performed By: #### L 100.0100, L500.2500 ####[facility] [address] [place], [address] Carbon dioxide, total [Moles /volume] in Central venous bloodOrdered By: Diana Snow on 10-03-2024 CO2 [Moles/Vol] 28.4 mmol/L 21.0-32.0 [facility] Chest without Contraston Chest without Contrast Normal [facility] Chloride assayOrdered By: Neto Snow on 10-03-2024 Chloride [Moles/Vol] 96 mmol/L Low 98-108 [facility] Emergency Department Summary on 10-03-2024 Emergency Department Summary Normal [facility] Eosinophil percentageOrdered By: Diana Snow on 10-03-2024 Eosinophils/100 WBC (Bld) 0.1 % 0-5 [facility] Erythrocyte distribution wid th ratioOrdered By: Diana Snow on 10-03-2024 Erythrocyte distribution width (RBC) [Ratio] 13.3 % 11.6-14.6 [facility] Erythrocyte distribution wid th standard deviationOrdered By: Diana Snow on 10-03-2024 Erythrocyte distribution width (RBC) [Ratio] 44.4 fl High 35.1-43.9 [facility] Glomerular filtration rate ( GFR) estimation/1.73 sq m using serum, plasma, or whole bOrdered By: Diana Snow on 10-03-2024 GFR/1.73 sq M.predicted among non-blacks MDRD (S/P/Bld) [Vol rate/Area] 52 mL/min/{1.73_m2} Low >60 [facility] H AND P Exam - Hospitaliston 10-03-2024 H&P Exam - Hospitalist Normal [facility] HIP, UNI W/ Pelvis 2-3 Views on 10-03-2024 HIP, UNI W/ Pelvis 2-3 Views Normal [facility] Hematocrit Auto (Bld) [Volum e fraction]Ordered By: Diana Snow on 10-03-2024 Hematocrit (Bld) [Volume fraction] 32.2 % Low 37-47 [facility] Hemoglobin measurementOrdere d By: Diana Snow on 10-03-2024 Hemoglobin (Bld) [Mass/Vol] 10.4 g/dL Low 12.0-15.0 [facility] Immature granulocytes/100 WB C Auto (Bld)Ordered By: Diana Snow on 10-03-2024 Immature granulocytes/100 WBC (Bld) 0.600 % 0.0-0.9 [facility] Ketones Test strip Ql (U)Ord ered By: Diana Snow on 10-03-2024 Ketones Ql (U) Negative Negative [facility] MCV (mean corpuscular volume ) determinationOrdered By: Diana Snow on 10-03-2024 MCV (RBC) [Entitic vol] 91.0 fL 81-[address] [facility] Magnesium measurement (mass/ volume)Ordered By: Juan José Thorpe on 10-03-2024 Magnesium (Unsp spec) [Mass/Vol] 3.4 mg/dL High 1.5-2.2 [facility] Mean corpuscular hemoglobin (MCH) determinationOrdered By: Diana Snow on 10-03-2024 MCH (RBC) [Entitic mass] 29.4 pg 27.0-32.0 [facility] Monocyte percentageOrdered B y: Diana Snow on 10-03-2024 Monocytes/100 WBC (Bld) 9.8 % 0-[address] [facility] Mucus LM Ql (Urine sed)Order ed By: Diana Snow on 10-03-2024 Mucus Ql (Urine sed) 0 SEEN /hpf [facility] Neutrophil percentageOrdered By: Diana Snow on 10-03-2024 Neutrophils/100 WBC (Bld) 79.6 % High 47-70 [facility] Nitrite Test strip Ql (U)Ord ered By: Diana Snow on 10-03-2024 Nitrite Ql (U) Negative Negative [facility] No Panel InformationOrdered By: Diana Snow on 10-03-2024 Negative < 200 ng/mL [facility] Platelet countOrdered By: Neto Snow on 10-03-2024 Platelets (Bld) [#/Vol] 368 10*3/uL 150-450 [facility] Potassium measurement (mass/ volume)Ordered By: Diana Snow on 10-03-2024 Potassium (Unsp spec) [Mass/Vol] 4.2 mmol/L 3.3-5.1 [facility] Protein Test strip Ql (U)Ord ered By: Diana Snow on 10-03-2024 Protein Ql (U) 30 mg/dl High Negative [facility] RBC Auto (Bld) [#/Vol]Ordere d By: Diana Snow on 10-03-2024 RBC (Bld) [#/Vol] 3.54 10*6/uL Low 4.2-5.[address] [facility] Screening urine fentanyl fran surementOrdered By: Diana Snow on 10-03-2024 fentaNYL Screen Ql (U) Negative [facility] Serum creatinine measurement (mass/volume)Ordered By: Diana Snow on 10-03-2024 Creatinine [Mass/Vol] 1.04 mg/dL 0.70-1.20 [facility] Serum glucose measurement (m ass/volume)Ordered By: Diana Snow on 10-03-2024 Glucose [Mass/Vol] 121 mg/dL High 70-[address] [facility] Serum or plasma calcium manuel urement (mass/volume)Ordered By: Diana Snow on 10-03-2024 Calcium [Mass/Vol] 8.4 mg/dL 7.6-11.[address] [facility] Serum or plasma ethanol manuel urement (mass/volume)Ordered By: Juan José Thorpe on 10-03-2024 Ethanol [Mass/Vol] mg/dL <10.[address] [facility] Serum or plasma urea nitroge n measurement (mass/volume)Ordered By: Diana Snow on 10-03-2024 Urea nitrogen [Mass/Vol] 35 mg/dL High 4-19 [facility] Sodium levelOrdered By: Roly Snow on 10-03-2024 Sodium [Moles/Vol] 134 mmol/L 133-[address] [facility] Spine Cervical without Contr ason 10-03-2024 Spine Cervical without Contras Normal [facility] Squamous epithelial cells de tection in urine sediment by light microscopyOrdered By: Diana Snow on 10-03-2024 Epithelial cells.squamous LM Ql (Urine sed) 0 SEEN /hpf 5-10 [facility] Urinalysis, Completeon 10-03 BACTERIA 2+ /hpf Normal None Seen [facility] Comment on above: Order Comment: CLEAN CATCH Performed By: #### L 400.0001 ####[facility] [address] [place], [address] RBC 0-5 SEEN Normal 0-5 [facility] Comment on above: Order Comment: CLEAN CATCH Performed By: #### L 400.0001 ####[facility] [address] [place], [address] WBC 0-5 SEEN Normal 0-5 [facility] Comment on above: Order Comment: CLEAN CATCH Performed By: #### L 400.0001 ####[facility] [address] [place], [address] EPI,SQUAMOUS 0 SEEN Normal 5-10 [facility] Comment on above: Order Comment: CLEAN CATCH Performed By: #### L 400.0001 ####[facility] [address] [place], [address] Mucus Ql (Urine sed) 0 SEEN Normal [facility] Comment on above: Order Comment: CLEAN CATCH Performed By: #### L 400.0001 ####[facility] [address] [place], [address] Urine Drug Screen (VISTA)on 10-03-2024 AMPHETAMINES Negative Normal <1000 ng/mL [facility] Comment on above: Performed By: #### L 505.5000 ####[facility] [address] [facility] [address] BARBITIURATES Negative Normal < 200 ng/mL [facility] Comment on above: Performed By: #### L 505.5000 ####[facility] [address] [place], [address] BENZODIAZIPINE Negative Normal < 200 ng/mL [facility] Comment on above: Performed By: #### L 505.5000 ####[facility] [address] [place], [address] BUP Ur Drug Scr Negative Normal < 200 ng/mL [facility] Comment on above: Performed By: #### L 505.5000 ####[facility] [address] [facility] [address] COCAINE Negative Normal < 300 ng/mL [facility] Comment on above: Performed By: #### L 505.5000 ####[facility] [address] [place] [id number] Fentanyl Negative Normal [facility] Comment on above: Performed By: #### L 505.5000 ####[facility] [address] [place] [id number] METHADONE Negative Normal < 300 ng/mL [facility] Comment on above: Performed By: #### L 505.5000 ####[facility] [address] [place] [address] OPIATES Positive Normal < 300 ng/mL [facility] Comment on above: Result Comment: If c onfirmation testing is needed, a separate order will berequired to send out testing to the reference laboratory. Performed By: #### L 505.5000 ####[facility] [address] [facility] [address] OXYCODONE Negative Normal < 100 ng/mL [facility] Comment on above: Performed By: #### L 505.5000 ####[facility] [address] [place], [address] PCP Negative Normal < 25 ng/mL [facility] Comment on above: Performed By: #### L 505.5000 ####[facility] [address] [place], [address] THC Negative Normal < 50 ng/mL [facility] Comment on above: Performed By: #### L 505.5000 ####[facility] [address] [place], [address] Urine clarityOrdered By: Jocelynn Snow on 10-03-2024 Clarity (U) Clear Clear [facility] Urine color determinationOrd ered By: Diana Snow on 10-03-2024 Color (U) Straw Yellow [facility] Urine cultureOrdered By: Jocelynn Snow on 10-03-2024 Bacteria identified Cx Nom (U) Aerococcus urinae Abnormal [facility] Urine glucose detectionOrder ed By: Diana Snow on 10-03-2024 Glucose Ql (U) Normal mg/dl Normal [facility] Urine leukocyte esterase det ection by dipstickOrdered By: Diana Snow on 10-03-2024 Leukocyte esterase Test strip Ql (U) Negative Negative [facility] Urine pHOrdered By: Diana ann on 10-03-2024 pH (U) 6.5 [pH] 5.0 - 8.0 [facility] Urine phencyclidine (PCP) de tectionOrdered By: Diana Snow on 10-03-2024 Phencyclidine Ql (U) Negative < 25 ng/mL [facility] Urine sediment bacteria coun t by microscopy (number/high power field)Ordered By: Diana Snow on 10-03-2024 Bacteria LM.HPF (Urine sed) [#/Area] 2 /[HPF] None Seen [facility] Urine specific gravity measu rementOrdered By: Diana Snow on 10-03-2024 Specific gravity (U) [Rel density] 1.010 1.002-1.030 [facility] Urine urobilinogen measureme ntOrdered By: Diana Snow on 10-03-2024 Urobilinogen Ql (U) Normal mg/dl Normal [facility] White blood cell (WBC) count Ordered By: Diana Snow on 10-03-2024 WBC (Bld) [#/Vol] 10.3 10*3/uL 4.4-11.[address] [facility] White blood cell countOrdere d By: Diana Snow on 10-03-2024 White blood cell count 0-5 SEEN /hpf 0-5 [facility] 12 Lead EKGon 10-01-2024 12 Lead EKG Normal [facility] Absolute lymphocyte countOrd ered By: Ayaz Hinton on 10-01-2024 Lymphocytes Auto (Unsp spec) [#/Vol] 1.04 10*3/uL 0.83-4.51 [facility] Amorphous sediment detection in urine sediment by light microscopyOrdered By: Ayaz Hinton on 10-01-2024 Amorphous sediment LM Ql (Urine sed) 2+ [facility] Anion gap in Serum or Plasma Ordered By: Ayaz Hinton on 10-01-2024 Anion gap [Moles/Vol] 12 mmol/L 5-15 [facility] Automated lymphocyte count a s percentage of total leukocytesOrdered By: Ayaz Hinton on 10-01-2024 Lymphocytes/100 WBC Auto (Unsp spec) 10.9 % Low 19-41 [facility] BUN/creatinine ratioOrdered By: Ayaz Hinton on 10-01-2024 Urea nitrogen/Creatinine [Mass ratio] 28.7 mg/mg High 10-20 [facility] Basic Metabolic Profile (BMP )on 10-01-2024 BUN/CRE 28.7 RATIO High 02-28 [facility] Comment on above: Performed By: #### L 100.0100, L500.3400, L500.2500 ####[facility] [address] [place], [address] Calcium [Mass/Vol] 9.0 mg/dL Normal 7.6-11.[address] [facility] Comment on above: Performed By: #### L 100.0100, L500.3400, L500.2500 ####[facility] [address] [place], [address] Chloride [Moles/Vol] 92 mmol/L Low 98-108 [facility] Comment on above: Performed By: #### L 100.0100, L500.3400, L500.2500 ####[facility] [address] [place], [address] CO2 [Moles/Vol] 28.3 mmol/L Normal 21.0-32.0 [facility] Comment on above: Performed By: #### L 100.0100, L500.3400, L500.2500 ####[facility] [address] [place], [address] Creatinine [Mass/Vol] 1.17 mg/dL Normal 0.70-1.20 [facility] Comment on above: Performed By: #### L 100.0100, L500.3400, L500.2500 ####[facility] [address] [place], [address] ECRCL 32.33 ml/min Low 50-250 [facility] Comment on above: Performed By: #### L 100.0100, L500.3400, L500.2500 ####[facility] [address] [place], [address] GAP 12 Normal 5-15 [facility] Comment on above: Performed By: #### L 100.0100, L500.3400, L500.2500 ####[facility] [address] [place], [address] GFR/1.73 sq M.predicted among non-blacks MDRD (S/P/Bld) [Vol rate/Area] 45 mL/min/{1.73_m2} Low >60 [facility] Comment on above: Result Comment: mL/m in/1.73m2 CKD-EPI Creatinine Equation (2020) Performed By: #### L 100.0100, L500.3400, L500.2500 ####[facility] [address] [place], [address] Glucose [Mass/Vol] 116 mg/dL High 70-[address] [facility] Comment on above: Performed By: #### L 100.0100, L500.3400, L500.2500 ####[facility] [address] [place], [address] Potassium [Moles/Vol] 4.3 mmol/L Normal 3.3-5.1 [facility] Comment on above: Performed By: #### L 100.0100, L500.3400, L500.2500 ####[facility] [address] [place], [address] Sodium [Moles/Vol] 133 mmol/L Normal 133-[address] [facility] Comment on above: Performed By: #### L 100.0100, L500.3400, L500.2500 ####[facility] [address] [place], [address] Urea nitrogen [Mass/Vol] 34 mg/dL High 4-19 [facility] Comment on above: Performed By: #### L 100.0100, L500.3400, L500.2500 ####[facility] [address] [place], [address] Basophil percentageOrdered B y: Ayaz Hinton on 10-01-2024 Basophils/100 WBC (Bld) 0.6 % 0-[address] [facility] Bilirubin Test strip Ql (U)O rdered By: Ayaz Hinton on 10-01-2024 Bilirubin Ql (U) Negative Negative [facility] Bilirubin directOrdered By: Ayaz Hinton on 10-01-2024 Bilirubin.direct [Mass/Vol] 0.23 mg/dL 0.00-0.30 [facility] Bilirubin, totalOrdered By: Ayaz Hinton on 10-01-2024 Bilirubin [Mass/Vol] 0.42 mg/dL 0.00-1.30 [facility] CBC W/Diff, Automatedon 09-10 Absolute Lymph 1.04 X10 3/uL Normal 0.83-4.51 [facility] Comment on above: Performed By: #### L 100.0100, L500.3400, L500.2500 ####[facility] [address] [place], [address] Absolute Neut 7.6 X10 3/uL Normal 2.0-7.7 [facility] Comment on above: Performed By: #### L 100.0100, L500.3400, L500.2500 ####[facility] [address] [place], [address] Basophils/100 WBC (Bld) 0.6 % Normal 0-[address] [facility] Comment on above: Performed By: #### L 100.0100, L500.3400, L500.2500 ####[facility] [address] [place], [address] Eosinophils/100 WBC (Bld) 1.9 % Normal 0-5 [facility] Comment on above: Performed By: #### L 100.0100, L500.3400, L500.2500 ####[facility] [address] [place], [address] Erythrocyte distribution width (RBC) [Ratio] 13.3 % Normal 11.6-14.6 [facility] Comment on above: Performed By: #### L 100.0100, L500.3400, L500.2500 ####[facility] [address] [place], [address] Hematocrit (Bld) [Volume fraction] 36.1 % Low 37-47 [facility] Comment on above: Performed By: #### L 100.0100, L500.3400, L500.2500 ####[facility] [address] [place], [address] Hemoglobin (Bld) [Mass/Vol] 11.3 g/dL Low 12.0-15.0 [facility] Comment on above: Performed By: #### L 100.0100, L500.3400, L500.2500 ####[facility] [address] [place], [address] IG% 0.800 Normal 0.0-0.9 [facility] Comment on above: Result Comment: IG% - Immature Granulocytes (promyelocytes, myelocytes andmetamyelocytes) > 1% indicates that a LEFT SHIFT is Present. Performed By: #### L 100.0100, L500.3400, L500.2500 ####[facility] [address] [place], [address] Lymphocytes/100 WBC (Bld) 10.9 % Low 19-41 [facility] Comment on above: Performed By: #### L 100.0100, L500.3400, L500.2500 ####[facility] [address] [place], [address] MCH (RBC) [Entitic mass] 28.5 pg Normal 27.0-32.0 [facility] Comment on above: Performed By: #### L 100.0100, L500.3400, L500.2500 ####[facility] [address] [place], [address] MCHC (RBC) [Mass/Vol] 31.3 g/dL Low 32-36 [facility] Comment on above: Performed By: #### L 100.0100, L500.3400, L500.2500 ####[facility] [address] [place], [address] MCV (RBC) [Entitic vol] 91.2 fL Normal 81-[address] [facility] Comment on above: Performed By: #### L 100.0100, L500.3400, L500.2500 ####[facility] [address] [place], [address] Monocytes/100 WBC (Bld) 6.0 % Normal 0-[address] [facility] Comment on above: Performed By: #### L 100.0100, L500.3400, L500.2500 ####[facility] [address] [place], [address] Neutrophils/100 WBC (Bld) 79.8 % High 47-70 [facility] Comment on above: Performed By: #### L 100.0100, L500.3400, L500.2500 ####[facility] [address] [place], [address] Nucleated RBC (Bld) [#/Vol] 0 10*3/uL Normal 0-5 [facility] Comment on above: Performed By: #### L 100.0100, L500.3400, L500.2500 ####[facility] [address] [place], [address] Platelet mean volume (Bld) [Entitic vol] 9.1 fL Normal 6.2-12.0 [facility] Comment on above: Performed By: #### L 100.0100, L500.3400, L500.2500 ####[facility] [address] [place], [address] Platelets (Bld) [#/Vol] 374 10*3/uL Normal 150-450 [facility] Comment on above: Performed By: #### L 100.0100, L500.3400, L500.2500 ####[facility] [address] [place], [address] RBC (Bld) [#/Vol] 3.96 10*6/uL Low 4.2-5.[address] [facility] Comment on above: Performed By: #### L 100.0100, L500.3400, L500.2500 ####[facility] [address] [place], [address] RDW SD 44.9 fl High 35.1-43.9 [facility] Comment on above: Performed By: #### L 100.0100, L500.3400, L500.2500 ####[facility] [address] [place], [address] WBC (Bld) [#/Vol] 9.5 10*3/uL Normal 4.4-11.[address] [facility] Comment on above: Performed By: #### L 100.0100, L500.3400, L500.2500 ####[facility] [address] [place], [address] Carbon dioxide, total [Moles /volume] in Central venous bloodOrdered By: Ayaz Hinton on 10-01-2024 CO2 [Moles/Vol] 28.3 mmol/L 21.0-32.0 [facility] Chest 1 View (Portable)on Chest 1 View (Portable) Normal [facility] Chloride assayOrdered By: Freddie Hinton on 10-01-2024 Chloride [Moles/Vol] 92 mmol/L Low 98-108 [facility] Emergency Department Summary on 10-01-2024 Emergency Department Summary Normal [facility] Eosinophil percentageOrdered By: Ayaz Hinton on 10-01-2024 Eosinophils/100 WBC (Bld) 1.9 % 0-5 [facility] Erythrocyte distribution wid th ratioOrdered By: Ayaz Hinton on 10-01-2024 Erythrocyte distribution width (RBC) [Ratio] 13.3 % 11.6-14.6 [facility] Erythrocyte distribution wid th standard deviationOrdered By: Ayaz Hinton on 10-01-2024 Erythrocyte distribution width (RBC) [Ratio] 44.9 fl High 35.1-43.9 [facility] Glomerular filtration rate ( GFR) estimation/1.73 sq m using serum, plasma, or whole bOrdered By: Ayaz Hinton on 10-01-2024 GFR/1.73 sq M.predicted among non-blacks MDRD (S/P/Bld) [Vol rate/Area] 45 mL/min/{1.73_m2} Low >60 [facility] Hematocrit Auto (Bld) [Volum e fraction]Ordered By: Ayaz Hinton on 10-01-2024 Hematocrit (Bld) [Volume fraction] 36.1 % Low 37-47 [facility] Hemoglobin measurementOrdere d By: Ayaz Hinton on 10-01-2024 Hemoglobin (Bld) [Mass/Vol] 11.3 g/dL Low 12.0-15.0 [facility] Immature granulocytes/100 WB C Auto (Bld)Ordered By: Ayaz Hinton on 10-01-2024 Immature granulocytes/100 WBC (Bld) 0.800 % 0.0-0.9 [facility] Ketones Test strip Ql (U)Ord ered By: Ayaz Hinton on 10-01-2024 Ketones Ql (U) Negative Negative [facility] Liver Profileon 10-01-2024 Albumin [Mass/Vol] 4.1 g/dL Normal 3.4-4.[address] [facility] Comment on above: Performed By: #### L 100.0100, L500.3400, L500.2500 ####[facility] [address] [place], [address] ALK PHOS 96 U/L Normal 35-104 [facility] Comment on above: Performed By: #### L 100.0100, L500.3400, L500.2500 ####[facility] [address] [place], [address] ALT [Catalytic activity/Vol] 9 U/L Normal <=34 [facility] Comment on above: Performed By: #### L 100.0100, L500.3400, L500.2500 ####[facility] [address] [place], [address] AST [Catalytic activity/Vol] 23 U/L Normal <=31 [facility] Comment on above: Performed By: #### L 100.0100, L500.3400, L500.2500 ####[facility] [address] [place], [address] Bilirubin [Mass/Vol] 0.42 mg/dL Normal 0.00-1.30 [facility] Comment on above: Performed By: #### L 100.0100, L500.3400, L500.2500 ####[facility] [address] [place], [address] Bilirubin.direct [Mass/Vol] 0.23 mg/dL Normal 0.00-0.30 [facility] Comment on above: Performed By: #### L 100.0100, L500.3400, L500.2500 ####[facility] [address] [place], [address] Globulin (S) [Mass/Vol] 3.0 g/dL Normal 2.2-4.2 [facility] Comment on above: Performed By: #### L 100.0100, L500.3400, L500.2500 ####[facility] [address] [place], [address] T PROT 7.1 g/dL Normal 5.9-8.4 [facility] Comment on above: Performed By: #### L 100.0100, L500.3400, L500.2500 ####[facility] [address] [place], [address] MCV (mean corpuscular volume ) determinationOrdered By: Ayaz Hinton on 10-01-2024 MCV (RBC) [Entitic vol] 91.2 fL 81-[address] [facility] Mean corpuscular hemoglobin (MCH) determinationOrdered By: Ayaz Hinton on 10-01-2024 MCH (RBC) [Entitic mass] 28.5 pg 27.0-32.0 [facility] Monocyte percentageOrdered B y: Ayaz Hinton on 10-01-2024 Monocytes/100 WBC (Bld) 6.0 % 0-[address] [facility] Mucus LM Ql (Urine sed)Order ed By: Ayaz Hinton on 10-01-2024 Mucus Ql (Urine sed) 0 SEEN /hpf [facility] Neutrophil percentageOrdered By: Ayaz Hinton on 10-01-2024 Neutrophils/100 WBC (Bld) 79.8 % High 47-70 [facility] Nitrite Test strip Ql (U)Ord ered By: Ayaz Hinton on 10-01-2024 Nitrite Ql (U) Negative Negative [facility] No Panel InformationOrdered By: Ayaz Hinton on 10-01-2024 23 U/L <32 [facility] Platelet countOrdered By: Freddie Hinton on 10-01-2024 Platelets (Bld) [#/Vol] 374 10*3/uL 150-450 [facility] Potassium measurement (mass/ volume)Ordered By: Ayaz Hinton on 10-01-2024 Potassium (Unsp spec) [Mass/Vol] 4.3 mmol/L 3.3-5.1 [facility] Protein Test strip Ql (U)Ord ered By: Ayaz Hinton on 10-01-2024 Protein Ql (U) 100 mg/dl High Negative [facility] RBC Auto (Bld) [#/Vol]Ordere d By: Ayaz Hinton on 10-01-2024 RBC (Bld) [#/Vol] 3.96 10*6/uL Low 4.2-5.[address] [facility] Serum creatinine measurement (mass/volume)Ordered By: Ayaz Hinton on 10-01-2024 Creatinine [Mass/Vol] 1.17 mg/dL 0.70-1.20 [facility] Serum globulin measurementOr dered By: Ayaz Hinton on 10-01-2024 Globulin (S) [Mass/Vol] 3.0 g/dL 2.2-4.[address] [facility] Serum glucose measurement (m ass/volume)Ordered By: Ayaz Hinton on 10-01-2024 Glucose [Mass/Vol] 116 mg/dL High 70-[address] [facility] Serum or plasma alanine clifton otransferase (ALT) measurementOrdered By: Ayaz Hinton on 10-01-2024 ALT [Catalytic activity/Vol] 9 U/L <35 [facility] Serum or plasma albumin manuel urement (mass/volume)Ordered By: Ayaz Hinton on 10-01-2024 Albumin [Mass/Vol] 4.1 g/dL 3.4-4.[address] [facility] Serum or plasma alkaline bibi sphatase measurementOrdered By: Ayaz Hinton on 10-01-2024 ALP [Catalytic activity/Vol] 96 U/L 35-104 [facility] Serum or plasma calcium manuel urement (mass/volume)Ordered By: Ayaz Hinton on 10-01-2024 Calcium [Mass/Vol] 9.0 mg/dL 7.6-11.[address] [facility] Serum or plasma urea nitroge n measurement (mass/volume)Ordered By: Ayaz Hinton on 10-01-2024 Urea nitrogen [Mass/Vol] 34 mg/dL High 4-19 [facility] Sodium levelOrdered By: Marquise Hinton on 10-01-2024 Sodium [Moles/Vol] 133 mmol/L 133-[address] [facility] Squamous epithelial cells de tection in urine sediment by light microscopyOrdered By: Ayaz Hinton on 10-01-2024 Epithelial cells.squamous LM Ql (Urine sed) 0 SEEN /hpf 5-10 [facility] Total proteinOrdered By: Kota Hinton on 10-01-2024 Protein [Mass/Vol] 7.1 g/dL 5.9-8.[address] [facility] Urinalysis, Completeon 10-01 AMORPHOUS 2+ Normal [facility] Comment on above: Order Comment: MARV CTOR TO SPECIFY Performed By: #### L 400.0001 ####[facility] [address] [place], [place], [id number] BACTERIA 1+ /hpf Normal None Seen [facility] Comment on above: Order Comment: MARV CTOR TO SPECIFY Performed By: #### L 400.0001 ####[facility] [address] [place], [place], [id number] RBC 0-5 SEEN Normal 0-5 [facility] Comment on above: Order Comment: MARV CTOR TO SPECIFY Performed By: #### L 400.0001 ####[facility] [address] [place], [address] WBC 10-25 SEEN Normal 0-5 [facility] Comment on above: Order Comment: MARV CTOR TO SPECIFY Performed By: #### L 400.0001 ####[facility] [address] [place], [address] EPI,SQUAMOUS 0 SEEN Normal 5-10 [facility] Comment on above: Order Comment: MARV CTOR TO SPECIFY Performed By: #### L 400.0001 ####[facility] [address] [place], [address] Mucus Ql (Urine sed) 0 SEEN Normal [facility] Comment on above: Order Comment: MARV CTOR TO SPECIFY Performed By: #### L 400.0001 ####[facility] [address] [place], [address] Urine clarityOrdered By: Kota Hinton on 10-01-2024 Clarity (U) Cloudy Clear [facility] Urine color determinationOrd ered By: Ayaz Hinton on 10-01-2024 Color (U) Yellow Yellow [facility] Urine cultureOrdered By: Kota Hinton on 10-01-2024 Bacteria identified Cx Nom (U) Aerococcus urinae Abnormal [facility] Urine glucose detectionOrder ed By: Ayaz Hinton on 10-01-2024 Glucose Ql (U) Normal mg/dl Normal [facility] Urine leukocyte esterase det ection by dipstickOrdered By: Ayaz Hinton on 10-01-2024 Leukocyte esterase Test strip Ql (U) 100 /ul High Negative [facility] Urine pHOrdered By: Ayaz amaro on 10-01-2024 pH (U) 6.0 [pH] 5.0 - 8.0 [facility] Urine sediment bacteria coun t by microscopy (number/high power field)Ordered By: Ayaz Hinton on 10-01-2024 Bacteria LM.HPF (Urine sed) [#/Area] 1 /[HPF] None Seen [facility] Urine specific gravity measu rementOrdered By: Ayaz Hinton on 10-01-2024 Specific gravity (U) [Rel density] 1.010 1.002-1.030 [facility] Urine urobilinogen measureme ntOrdered By: Ayaz Hinton on 10-01-2024 Urobilinogen Ql (U) Normal mg/dl Normal [facility] White blood cell (WBC) count Ordered By: Ayaz Hinton on 10-01-2024 WBC (Bld) [#/Vol] 9.5 10*3/uL 4.4-11.[address] [facility] White blood cell countOrdere d By: Ayaz Hinton on 10-01-2024 White blood cell count 10-25 SEEN /hpf 0-5 [facility] Absolute lymphocyte countOrd ered By: Zackary Lyon on 09-06-2024 Lymphocytes Auto (Unsp spec) [#/Vol] 1.76 10*3/uL 0.83-4.51 [facility] Anion gap in Serum or Plasma Ordered By: Zackary Lyon on 09-06-2024 Anion gap [Moles/Vol] 11 mmol/L 5-15 [facility] Automated lymphocyte count a s percentage of total leukocytesOrdered By: Zackary Lyon on 09-06-2024 Lymphocytes/100 WBC Auto (Unsp spec) 26.3 % 19-41 [facility] BUN/creatinine ratioOrdered By: Zackary Lyon on 09-06-2024 Urea nitrogen/Creatinine [Mass ratio] 40.3 mg/mg High 10-20 [facility] Basophil percentageOrdered B y: Zackary Lyon on 09-06-2024 Basophils/100 WBC (Bld) 1.0 % 0-[address] [facility] Bilirubin, totalOrdered By: Zackary Lyon on 09-06-2024 Bilirubin [Mass/Vol] 0.16 mg/dL 0.00-1.30 [facility] Carbon dioxide, total [Moles /volume] in Central venous bloodOrdered By: Zackary Lyon on 09-06-2024 CO2 [Moles/Vol] 25.0 mmol/L 21.0-32.0 [facility] Chloride assayOrdered By: Jesse Lyon on 09-06-2024 Chloride [Moles/Vol] 101 mmol/L 98-108 [facility] Eosinophil percentageOrdered By: Zackary Lyon 09-06-2024 Eosinophils/100 WBC (Bld) 5.2 % High 0-5 [facility] Erythrocyte distribution wid th ratioOrdered By: Zackary Lyon on 09-06-2024 Erythrocyte distribution width (RBC) [Ratio] 12.9 % 11.6-14.6 [facility] Erythrocyte distribution wid th standard deviationOrdered By: Zackary Lyon 09-06-2024 Erythrocyte distribution width (RBC) [Ratio] 44.5 fl High 35.1-43.9 [facility] Glomerular filtration rate ( GFR) estimation/1.73 sq m using serum, plasma, or whole bOrdered By: Zackary Lyon on 09-06-2024 GFR/1.73 sq M.predicted among non-blacks MDRD (S/P/Bld) [Vol rate/Area] 68 mL/min/{1.73_m2} >60 [facility] Hematocrit Auto (Bld) [Volum e fraction]Ordered By: Zackary Lyon 09-06-2024 Hematocrit (Bld) [Volume fraction] 29.8 % Low 37-47 [facility] Hemoglobin measurementOrdere d By: Zackary Lyon 09-06-2024 Hemoglobin (Bld) [Mass/Vol] 9.4 g/dL Low 12.0-15.0 [facility] Immature granulocytes/100 WB C Auto (Bld)Ordered By: Zackary Lyon 09-06-2024 Immature granulocytes/100 WBC (Bld) 0.400 % 0.0-0.9 [facility] MCV (mean corpuscular volume ) determinationOrdered By: Zackary Lyon 09-06-2024 MCV (RBC) [Entitic vol] 93.7 fL 81-[address] [facility] Mean corpuscular hemoglobin (MCH) determinationOrdered By: Zackary Lyon on 09-06-2024 MCH (RBC) [Entitic mass] 29.6 pg 27.0-32.0 [facility] Monocyte percentageOrdered B y: Zackary Lyon on 09-06-2024 Monocytes/100 WBC (Bld) 10.6 % High 0-[address] [facility] Neutrophil percentageOrdered By: Zackary Lyon on 09-06-2024 Neutrophils/100 WBC (Bld) 56.5 % 47-70 [facility] No Panel InformationOrdered By: Zackary Lyon on 09-06-2024 19 U/L <32 [facility] Platelet countOrdered By: Jesse Lyon on 09-06-2024 Platelets (Bld) [#/Vol] 337 10*3/uL 150-450 [facility] Potassium measurement (mass/ volume)Ordered By: Zackary Lyon on 09-06-2024 Potassium (Unsp spec) [Mass/Vol] 4.3 mmol/L 3.3-5.1 [facility] RBC Auto (Bld) [#/Vol]Ordere d By: Zackary Lyon on 09-06-2024 RBC (Bld) [#/Vol] 3.18 10*6/uL Low 4.2-5.[address] [facility] Serum creatinine measurement (mass/volume)Ordered By: Zackary Lyon on 09-06-2024 Creatinine [Mass/Vol] 0.83 mg/dL 0.70-1.20 [facility] Serum globulin measurementOr dered By: Zackary Lyon on 09-06-2024 Globulin (S) [Mass/Vol] 2.7 g/dL 2.2-4.[address] [facility] Serum glucose measurement (m ass/volume)Ordered By: Zackary Lyon 09-06-2024 Glucose [Mass/Vol] 88 mg/dL 70-[address] [facility] Serum or plasma alanine clifton otransferase (ALT) measurementOrdered By: Zackary Lyon 09-06-2024 ALT [Catalytic activity/Vol] 11 U/L <35 [facility] Serum or plasma albumin manuel urement (mass/volume)Ordered By: Zackary Sonali on 09-06-2024 Albumin [Mass/Vol] 3.5 g/dL 3.4-4.[address] [facility] Serum or plasma albumin/glob ulin mass ratioOrdered By: Zackary Toddmonicasalvador on 09-06-2024 Albumin/Globulin [Mass ratio] 1.3 {ratio} 0.9-2.4 [facility] Serum or plasma alkaline bibi sphatase measurementOrdered By: Jesseyariellouisnataly Brooksmonicasalvador on 09-06-2024 ALP [Catalytic activity/Vol] 60 U/L 35-104 [facility] Serum or plasma calcium manuel urement (mass/volume)Ordered By: Jesseyariellouisnataly Brooksmonicasalvador on 09-06-2024 Calcium [Mass/Vol] 10.0 mg/dL 7.6-11.[address] [facility] Serum or plasma urea nitroge n measurement (mass/volume)Ordered By: Jessealex Lyon on 09-06-2024 Urea nitrogen [Mass/Vol] 33 mg/dL High 4-19 [facility] Sodium levelOrdered By: Yohannes navarro Sonali on 09-06-2024 Sodium [Moles/Vol] 137 mmol/L 133-[address] [facility] Total proteinOrdered By: James mason Sonali on 09-06-2024 Protein [Mass/Vol] 6.1 g/dL 5.9-8.[address] [facility] White blood cell (WBC) count Ordered By: Zackary Lyon on 09-06-2024 WBC (Bld) [#/Vol] 6.7 10*3/uL 4.4-11.[address] [facility] Absolute lymphocyte countOrd ered By: Juan José Thorpe on 09-03-2024 Lymphocytes Auto (Unsp spec) [#/Vol] 1.68 10*3/uL 0.83-4.51 [facility] Anion gap in Serum or Plasma Ordered By: Juan José Thorpe on 09-03-2024 Anion gap [Moles/Vol] 14 mmol/L 5-15 [facility] Automated lymphocyte count a s percentage of total leukocytesOrdered By: Juan José Thorpe on 09-03-2024 Lymphocytes/100 WBC Auto (Unsp spec) 23.3 % 19-41 [facility] BUN/creatinine ratioOrdered By: Juan José Thorpe on 09-03-2024 Urea nitrogen/Creatinine [Mass ratio] 26.1 mg/mg High 10-20 [facility] Basic Metabolic Profile (BMP )on 09-03-2024 BUN/CRE 26.1 RATIO High 10-20 [facility] Comment on above: Performed By: #### L 500.2500, L100.0100 ####[facility] [address] [place], [address] Calcium [Mass/Vol] 9.5 mg/dL Normal 7.6-11.[address] [facility] Comment on above: Performed By: #### L 500.2500, L100.0100 ####[facility] [address] [place], [address] Chloride [Moles/Vol] 102 mmol/L Normal 98-108 [facility] Comment on above: Performed By: #### L 500.2500, L100.0100 ####[facility] [address] [place], [address] CO2 [Moles/Vol] 23.3 mmol/L Normal 21.0-32.0 [facility] Comment on above: Performed By: #### L 500.2500, L100.0100 ####[facility] [address] [place], [address] Creatinine [Mass/Vol] 0.78 mg/dL Normal 0.70-1.20 [facility] Comment on above: Performed By: #### L 500.2500, L100.0100 ####[facility] [address] [place], [address] ECRCL 47.90 ml/min Low 50-250 [facility] Comment on above: Performed By: #### L 500.2500, L100.0100 ####[facility] [address] [place], [address] GAP 14 Normal 5-15 [facility] Comment on above: Performed By: #### L 500.2500, L100.0100 ####[facility] [address] [place], [address] GFR/1.73 sq M.predicted among non-blacks MDRD (S/P/Bld) [Vol rate/Area] 73 mL/min/{1.73_m2} Normal >60 [facility] Comment on above: Result Comment: mL/m in/1.73m2 CKD-EPI Creatinine Equation (2020) Performed By: #### L 500.2500, L100.0100 ####[facility] [address] [place], [address] Glucose [Mass/Vol] 113 mg/dL High 70-[address] [facility] Comment on above: Performed By: #### L 500.2500, L100.0100 ####[facility] [address] [place], [address] Potassium [Moles/Vol] 3.2 mmol/L Low 3.3-5.1 [facility] Comment on above: Performed By: #### L 500.2500, L100.0100 ####[facility] [address] [place], [address] Sodium [Moles/Vol] 139 mmol/L Normal 133-[address] [facility] Comment on above: Performed By: #### L 500.2500, L100.0100 ####[facility] [address] [place], [address] Urea nitrogen [Mass/Vol] 20 mg/dL High 4-19 [facility] Comment on above: Performed By: #### L 500.2500, L100.0100 ####[facility] [address] [place], [address] Basophil percentageOrdered B y: Juan José Thorpe on 09-03-2024 Basophils/100 WBC (Bld) 0.8 % 0-[address] [facility] CBC W/Diff, Automatedon 08-11 Absolute Lymph 1.68 X10 3/uL Normal 0.83-4.51 [facility] Comment on above: Performed By: #### L 500.2500, L100.0100 ####[facility] [address] [place], [address] Absolute Neut 4.3 X10 3/uL Normal 2.0-7.7 [facility] Comment on above: Performed By: #### L 500.2500, L100.0100 ####[facility] [address] [place], [address] Basophils/100 WBC (Bld) 0.8 % Normal 0-[address] [facility] Comment on above: Performed By: #### L 500.2500, L100.0100 ####[facility] [address] [place], [address] Eosinophils/100 WBC (Bld) 6.9 % High 0-5 [facility] Comment on above: Performed By: #### L 500.2500, L100.0100 ####[facility] [address] [place], [address] Erythrocyte distribution width (RBC) [Ratio] 13.0 % Normal 11.6-14.6 [facility] Comment on above: Performed By: #### L 500.2500, L100.0100 ####[facility] [address] [place], [address] Hematocrit (Bld) [Volume fraction] 30.7 % Low 37-47 [facility] Comment on above: Performed By: #### L 500.2500, L100.0100 ####[facility] [address] [place], [address] Hemoglobin (Bld) [Mass/Vol] 9.7 g/dL Low 12.0-15.0 [facility] Comment on above: Performed By: #### L 500.2500, L100.0100 ####[facility] [address] [place], [address] IG% 0.400 Normal 0.0-0.9 [facility] Comment on above: Result Comment: IG% - Immature Granulocytes (promyelocytes, myelocytes andmetamyelocytes) > 1% indicates that a LEFT SHIFT is Present. Performed By: #### L 500.2500, L100.0100 ####[facility] [address] [place], [address] Lymphocytes/100 WBC (Bld) 23.3 % Normal 19-41 [facility] Comment on above: Performed By: #### L 500.2500, L100.0100 ####[facility] [address] [place], [address] MCH (RBC) [Entitic mass] 29.3 pg Normal 27.0-32.0 [facility] Comment on above: Performed By: #### L 500.2500, L100.0100 ####[facility] [address] [place], [address] MCHC (RBC) [Mass/Vol] 31.6 g/dL Low 32-36 [facility] Comment on above: Performed By: #### L 500.2500, L100.0100 ####[facility] [address] [place], [address] MCV (RBC) [Entitic vol] 92.7 fL Normal 81-99 [facility] Comment on above: Performed By: #### L 500.2500, L100.0100 ####[facility] [address] [place], [address] Monocytes/100 WBC (Bld) 8.2 % Normal 0-10 [facility] Comment on above: Performed By: #### L 500.2500, L100.0100 ####[facility] [address] [place], [address] Neutrophils/100 WBC (Bld) 60.4 % Normal 47-70 [facility] Comment on above: Performed By: #### L 500.2500, L100.0100 ####[facility] [address] [place], [address] Nucleated RBC (Bld) [#/Vol] 0 10*3/uL Normal 0-5 [facility] Comment on above: Performed By: #### L 500.2500, L100.0100 ####[facility] [address] [place], [address] Platelet mean volume (Bld) [Entitic vol] 9.9 fL Normal 6.2-12.0 [facility] Comment on above: Performed By: #### L 500.2500, L100.0100 ####[facility] [address] [place], [address] Platelets (Bld) [#/Vol] 302 10*3/uL Normal 150-450 [facility] Comment on above: Performed By: #### L 500.2500, L100.0100 ####[facility] [address] [place], [address] RBC (Bld) [#/Vol] 3.31 10*6/uL Low 4.2-5.[address] [facility] Comment on above: Performed By: #### L 500.2500, L100.0100 ####[facility] [address] [place], [address] RDW SD 44.4 fl High 35.1-43.9 [facility] Comment on above: Performed By: #### L 500.2500, L100.0100 ####[facility] [address] [place], [address] WBC (Bld) [#/Vol] 7.2 10*3/uL Normal 4.4-11.[address] [facility] Comment on above: Performed By: #### L 500.2500, L100.0100 ####[facility] [address] [place], [address] Carbon dioxide, total [Moles /volume] in Central venous bloodOrdered By: Juan José Thorpe on 09-03-2024 CO2 [Moles/Vol] 23.3 mmol/L 21.0-32.0 [facility] Chloride assayOrdered By: Freddie Thorpe on 09-03-2024 Chloride [Moles/Vol] 102 mmol/L 98-108 [facility] Eosinophil percentageOrdered By: Juan José Thorpe on 09-03-2024 Eosinophils/100 WBC (Bld) 6.9 % High 0-5 [facility] Erythrocyte distribution wid th ratioOrdered By: Juan José Thorpe on 09-03-2024 Erythrocyte distribution width (RBC) [Ratio] 13.0 % 11.6-14.6 [facility] Erythrocyte distribution wid th standard deviationOrdered By: Juan José Thorpe on 09-03-2024 Erythrocyte distribution width (RBC) [Ratio] 44.4 fl High 35.1-43.9 [facility] Glomerular filtration rate ( GFR) estimation/1.73 sq m using serum, plasma, or whole bOrdered By: Juan José Thorpe on 09-03-2024 GFR/1.73 sq M.predicted among non-blacks MDRD (S/P/Bld) [Vol rate/Area] 73 mL/min/{1.73_m2} >60 [facility] Hematocrit Auto (Bld) [Volum e fraction]Ordered By: Juan José Thorpe on 09-03-2024 Hematocrit (Bld) [Volume fraction] 30.7 % Low 37-47 [facility] Hemoglobin measurementOrdere d By: Juan José Thorpe on 09-03-2024 Hemoglobin (Bld) [Mass/Vol] 9.7 g/dL Low 12.0-15.0 [facility] Immature granulocytes/100 WB C Auto (Bld)Ordered By: Juan José Thorpe on 09-03-2024 Immature granulocytes/100 WBC (Bld) 0.400 % 0.0-0.9 [facility] MCV (mean corpuscular volume ) determinationOrdered By: Juan José Thorpe on 09-03-2024 MCV (RBC) [Entitic vol] 92.7 fL 81-[address] [facility] Mean corpuscular hemoglobin (MCH) determinationOrdered By: Juan José Thorpe on 09-03-2024 MCH (RBC) [Entitic mass] 29.3 pg 27.0-32.0 [facility] Monocyte percentageOrdered B y: Juan José Thorpe on 09-03-2024 Monocytes/100 WBC (Bld) 8.2 % 0-[address] [facility] Neutrophil percentageOrdered By: Juan José Thorpe on 09-03-2024 Neutrophils/100 WBC (Bld) 60.4 % 47-70 [facility] Platelet countOrdered By: Freddie Thorpe on 09-03-2024 Platelets (Bld) [#/Vol] 302 10*3/uL 150-450 [facility] Potassium measurement (mass/ volume)Ordered By: Juan José Thorpe on 09-03-2024 Potassium (Unsp spec) [Mass/Vol] 3.2 mmol/L Low 3.3-5.1 [facility] RBC Auto (Bld) [#/Vol]Ordere d By: Juan José Thorpe on 09-03-2024 RBC (Bld) [#/Vol] 3.31 10*6/uL Low 4.2-5.[address] [facility] Serum creatinine measurement (mass/volume)Ordered By: Juan José Thorpe on 09-03-2024 Creatinine [Mass/Vol] 0.78 mg/dL 0.70-1.20 [facility] Serum glucose measurement (m ass/volume)Ordered By: Juan José Thorpe on 09-03-2024 Glucose [Mass/Vol] 113 mg/dL High 70-[address] [facility] Serum or plasma calcium manuel urement (mass/volume)Ordered By: Juan José Thorpe on 09-03-2024 Calcium [Mass/Vol] 9.5 mg/dL 7.6-11.[address] [facility] Serum or plasma urea nitroge n measurement (mass/volume)Ordered By: Juan José Thorpe on 09-03-2024 Urea nitrogen [Mass/Vol] 20 mg/dL High 4-19 [facility] Sodium levelOrdered By: Carroll Thorpe on 09-03-2024 Sodium [Moles/Vol] 139 mmol/L 133-[address] [facility] White blood cell (WBC) count Ordered By: Juan José Thorpe on 09-03-2024 WBC (Bld) [#/Vol] 7.2 10*3/uL 4.4-11.[address] [facility] Bilirubin, totalOrdered By: Juan José Thorpe on 09-02-2024 Bilirubin [Mass/Vol] 0.27 mg/dL 0.00-1.30 [facility] CBC W/Diff, Automatedon 08-11 Absolute Lymph 1.63 X10 3/uL Normal 0.83-4.51 [facility] Comment on above: Performed By: #### L 500.4050, L501.2300, L501.5200, L100.0100 ####[facility] [address] [place], [address] Absolute Neut 6.4 X10 3/uL Normal 2.0-7.7 [facility] Comment on above: Performed By: #### L 500.4050, L501.2300, L501.5200, L100.0100 ####[facility] [address] [place], [address] Basophils/100 WBC (Bld) 0.5 % Normal 0-[address] [facility] Comment on above: Performed By: #### L 500.4050, L501.2300, L501.5200, L100.0100 ####[facility] [address] [place], [address] Eosinophils/100 WBC (Bld) 3.9 % Normal 0-5 [facility] Comment on above: Performed By: #### L 500.4050, L501.2300, L501.5200, L100.0100 ####[facility] [address] [place], [address] Erythrocyte distribution width (RBC) [Ratio] 13.1 % Normal 11.6-14.6 [facility] Comment on above: Performed By: #### L 500.4050, L501.2300, L501.5200, L100.0100 ####[facility] [address] [place], [address] Hematocrit (Bld) [Volume fraction] 31.2 % Low 37-47 [facility] Comment on above: Performed By: #### L 500.4050, L501.2300, L501.5200, L100.0100 ####[facility] [address] [place], [address] Hemoglobin (Bld) [Mass/Vol] 10.0 g/dL Low 12.0-15.0 [facility] Comment on above: Performed By: #### L 500.4050, L501.2300, L501.5200, L100.0100 ####[facility] [address] [place], [address] IG% 0.300 Normal 0.0-0.9 [facility] Comment on above: Result Comment: IG% - Immature Granulocytes (promyelocytes, myelocytes andmetamyelocytes) > 1% indicates that a LEFT SHIFT is Present. Performed By: #### L 500.4050, L501.2300, L501.5200, L100.0100 ####[facility] [address] [place], [address] Lymphocytes/100 WBC (Bld) 17.4 % Low 19-41 [facility] Comment on above: Performed By: #### L 500.4050, L501.2300, L501.5200, L100.0100 ####[facility] [address] [place], [address] MCH (RBC) [Entitic mass] 29.6 pg Normal 27.0-32.0 [facility] Comment on above: Performed By: #### L 500.4050, L501.2300, L501.5200, L100.0100 ####[facility] [address] [place], [address] MCHC (RBC) [Mass/Vol] 32.1 g/dL Normal 32-36 [facility] Comment on above: Performed By: #### L 500.4050, L501.2300, L501.5200, L100.0100 ####[facility] [address] [place], [address] MCV (RBC) [Entitic vol] 92.3 fL Normal 81-99 [facility] Comment on above: Performed By: #### L 500.4050, L501.2300, L501.5200, L100.0100 ####[facility] [address] [place], [address] Monocytes/100 WBC (Bld) 9.6 % Normal 0-10 [facility] Comment on above: Performed By: #### L 500.4050, L501.2300, L501.5200, L100.0100 ####[facility] [address] [place], [address] Neutrophils/100 WBC (Bld) 68.3 % Normal 47-70 [facility] Comment on above: Performed By: #### L 500.4050, L501.2300, L501.5200, L100.0100 ####[facility] [address] [place], [address] Nucleated RBC (Bld) [#/Vol] 0 10*3/uL Normal 0-5 [facility] Comment on above: Performed By: #### L 500.4050, L501.2300, L501.5200, L100.0100 ####[facility] [address] [place], [address] Platelet mean volume (Bld) [Entitic vol] 9.5 fL Normal 6.2-12.0 [facility] Comment on above: Performed By: #### L 500.4050, L501.2300, L501.5200, L100.0100 ####[facility] [address] [place], [address] Platelets (Bld) [#/Vol] 314 10*3/uL Normal 150-450 [facility] Comment on above: Performed By: #### L 500.4050, L501.2300, L501.5200, L100.0100 ####[facility] [address] [place], [address] RBC (Bld) [#/Vol] 3.38 10*6/uL Low 4.2-5.[address] [facility] Comment on above: Performed By: #### L 500.4050, L501.2300, L501.5200, L100.0100 ####[facility] [address] [place], [address] RDW SD 44.2 fl High 35.1-43.9 [facility] Comment on above: Performed By: #### L 500.4050, L501.2300, L501.5200, L100.0100 ####[facility] [address] [place], [address] WBC (Bld) [#/Vol] 9.4 10*3/uL Normal 4.4-11.[address] [facility] Comment on above: Performed By: #### L 500.4050, L501.2300, L501.5200, L100.0100 ####[facility] [address] [place], [address] Comprehensive Metabolic [facility] ilon 09-02-2024 Albumin [Mass/Vol] 3.6 g/dL Normal 3.4-4.[address] [facility] Comment on above: Performed By: #### L 500.4050, L501.2300, L501.5200, L100.0100 ####[facility] [address] [place], [address] Albumin/Globulin [Mass ratio] 1.3 {ratio} Normal 0.9-2.4 [facility] Comment on above: Performed By: #### L 500.4050, L501.2300, L501.5200, L100.0100 ####[facility] [address] [place], [address] ALK PHOS 62 U/L Normal 35-104 [facility] Comment on above: Performed By: #### L 500.4050, L501.2300, L501.5200, L100.0100 ####[facility] [address] [place], [address] ALT [Catalytic activity/Vol] 9 U/L Normal <=34 [facility] Comment on above: Performed By: #### L 500.4050, L501.2300, L501.5200, L100.0100 ####[facility] [address] [place], [address] AST [Catalytic activity/Vol] 23 U/L Normal <=31 [facility] Comment on above: Performed By: #### L 500.4050, L501.2300, L501.5200, L100.0100 ####[facility] [address] [place], [address] Bilirubin [Mass/Vol] 0.27 mg/dL Normal 0.00-1.30 [facility] Comment on above: Performed By: #### L 500.4050, L501.2300, L501.5200, L100.0100 ####[facility] [address] [place], [address] BUN/CRE 28.3 RATIO High 10-20 [facility] Comment on above: Performed By: #### L 500.4050, L501.2300, L501.5200, L100.0100 ####[facility] [address] [place], [address] Calcium [Mass/Vol] 9.8 mg/dL Normal 7.6-11.[address] [facility] Comment on above: Performed By: #### L 500.4050, L501.2300, L501.5200, L100.0100 ####[facility] [address] [place], [address] Chloride [Moles/Vol] 100 mmol/L Normal 98-108 [facility] Comment on above: Performed By: #### L 500.4050, L501.2300, L501.5200, L100.0100 ####[facility] [address] [place], [address] CO2 [Moles/Vol] 27.2 mmol/L Normal 21.0-32.0 [facility] Comment on above: Performed By: #### L 500.4050, L501.2300, L501.5200, L100.0100 ####[facility] [address] [place], [address] Creatinine [Mass/Vol] 0.82 mg/dL Normal 0.70-1.20 [facility] Comment on above: Performed By: #### L 500.4050, L501.2300, L501.5200, L100.0100 ####[facility] [address] [place], [address] ECRCL 46.73 ml/min Low 50-250 [facility] Comment on above: Performed By: #### L 500.4050, L501.2300, L501.5200, L100.0100 ####[facility] [address] [place], [address] GAP 11 Normal 5-15 [facility] Comment on above: Performed By: #### L 500.4050, L501.2300, L501.5200, L100.0100 ####[facility] [address] [place], [address] GFR/1.73 sq M.predicted among non-blacks MDRD (S/P/Bld) [Vol rate/Area] 69 mL/min/{1.73_m2} Normal >60 [facility] Comment on above: Result Comment: mL/m in/1.73m2 CKD-EPI Creatinine Equation (2020) Performed By: #### L 500.4050, L501.2300, L501.5200, L100.0100 ####[facility] [address] [place], [address] Globulin (S) [Mass/Vol] 2.7 g/dL Normal 2.2-4.2 [facility] Comment on above: Performed By: #### L 500.4050, L501.2300, L501.5200, L100.0100 ####[facility] [address] [place], [address] Glucose [Mass/Vol] 108 mg/dL High 70-[address] [facility] Comment on above: Performed By: #### L 500.4050, L501.2300, L501.5200, L100.0100 ####[facility] [address] [place], [address] Potassium [Moles/Vol] 3.9 mmol/L Normal 3.3-5.1 [facility] Comment on above: Performed By: #### L 500.4050, L501.2300, L501.5200, L100.0100 ####[facility] [address] [place], [address] Sodium [Moles/Vol] 139 mmol/L Normal 133-[address] [facility] Comment on above: Performed By: #### L 500.4050, L501.2300, L501.5200, L100.0100 ####[facility] [address] [place], [address] T PROT 6.3 g/dL Normal 5.9-8.4 [facility] Comment on above: Performed By: #### L 500.4050, L501.2300, L501.5200, L100.0100 ####[facility] [address] [place], [address] Urea nitrogen [Mass/Vol] 23 mg/dL High 4-19 [facility] Comment on above: Performed By: #### L 500.4050, L501.2300, L501.5200, L100.0100 ####[facility] [address] [place], [address] Magnesiumon 09-02-2024 Magnesium [Mass/Vol] 2.1 mg/dL Normal 1.5-2.2 [facility] Comment on above: Performed By: #### L 500.4050, L501.2300, L501.5200, L100.0100 ####[facility] [address] [place], [address] Magnesium measurement (mass/ volume)Ordered By: Juan José Thorpe on 09-02-2024 Magnesium (Unsp spec) [Mass/Vol] 2.1 mg/dL 1.5-2.2 [facility] No Panel InformationOrdered By: Juan José Thorpe on 09-02-2024 23 U/L <32 [facility] Phosphoruson 09-02-2024 Phosphate [Mass/Vol] 4.5 mg/dL Normal 2.7-4.5 [facility] Comment on above: Performed By: #### L 500.4050, L501.2300, L501.5200, L100.0100 ####[facility] [address] [place], [place], [address] Serum globulin measurementOr dered By: Juan José Thorpe on 09-02-2024 Globulin (S) [Mass/Vol] 2.7 g/dL 2.2-4.2 [facility] Serum or plasma alanine clifton otransferase (ALT) measurementOrdered By: Juan José Thorpe on 09-02-2024 ALT [Catalytic activity/Vol] 9 U/L <35 [facility] Serum or plasma albumin manuel urement (mass/volume)Ordered By: Juan José Thorpe on 09-02-2024 Albumin [Mass/Vol] 3.6 g/dL 3.4-4.[address] [facility] Serum or plasma albumin/glob ulin mass ratioOrdered By: Juan José Thorpe on 09-02-2024 Albumin/Globulin [Mass ratio] 1.3 {ratio} 0.9-2.4 [facility] Serum or plasma alkaline bibi sphatase measurementOrdered By: Juan José Thorpe on 09-02-2024 ALP [Catalytic activity/Vol] 62 U/L 35-104 [facility] Total proteinOrdered By: Obed Thorpe on 09-02-2024 Protein [Mass/Vol] 6.3 g/dL 5.9-8.[address] [facility] Alcohol, Blood (Medical)-Ser umon 09-01-2024 SERUM ETOH < 10.1 Normal <=10.0 [facility] Comment on above: Result Comment: This test is for medical purposes only. The legaldefinition of intoxication varies according to local law. Performed By: #### L 501.9100, L505.5000 ####[facility] [address] [place], [address] H AND P Exam - Hospitaliston 09-01-2024 H&P Exam - Hospitalist Normal [facility] Urine Drug Screen (VISTA)on 09-01-2024 AMPHETAMINES Negative Normal <1000 ng/mL [facility] Comment on above: Performed By: #### L 501.9100, L505.5000 ####[facility] [address] [place], [address] BARBITIURATES Negative Normal < 200 ng/mL [facility] Comment on above: Performed By: #### L 501.9100, L505.5000 ####[facility] [address] [place], [address] BENZODIAZIPINE Negative Normal < 200 ng/mL [facility] Comment on above: Performed By: #### L 501.9100, L505.5000 ####[facility] [address] [place], [address] BUP Ur Drug Scr Negative Normal < 200 ng/mL [facility] Comment on above: Performed By: #### L 501.9100, L505.5000 ####[facility] [address] [place], [address] COCAINE Negative Normal < 300 ng/mL [facility] Comment on above: Performed By: #### L 501.9100, L505.5000 ####[facility] [address] [place], [address] Fentanyl Negative Normal [facility] Comment on above: Performed By: #### L 501.9100, L505.5000 ####[facility] [address] [place], [address] METHADONE Negative Normal < 300 ng/mL [facility] Comment on above: Performed By: #### L 501.9100, L505.5000 ####[facility] [address] [place], [address] OPIATES Negative Normal < 300 ng/mL [facility] Comment on above: Performed By: #### L 501.9100, L505.5000 ####[facility] [address] [place], [address] OXYCODONE Negative Normal < 100 ng/mL [facility] Comment on above: Performed By: #### L 501.9100, L505.5000 ####[facility] [address] [place], [address] PCP Negative Normal < 25 ng/mL [facility] Comment on above: Performed By: #### L 501.9100, L505.5000 ####[facility] [address] [place], [address] THC Negative Normal < 50 ng/mL [facility] Comment on above: Performed By: #### L 501.9100, L505.5000 ####[facility] [address] [place], [address] Absolute lymphocyte countOrd ered By: Layla Craig on 08-31-2024 Lymphocytes Auto (Unsp spec) [#/Vol] 1.52 10*3/uL 0.83-4.51 [facility] Ammoniaon 08-31-2024 Ammonia (P) [Moles/Vol] 19.3 umol/L Normal [facility] Comment on above: Performed By: #### L 100.0100, L503.5510, L500.2500, L500.3400 ####[facility] [address] [place], [place], [address] Amphetamine detection with 1 000 ng/mL as cutoffOrdered By: Juan José Thorpe on 08-31-2024 Amphetamines Screen method >1000 ng/mL Ql (U) Negative < 200 ng/mL [facility] Anion gap in Serum or Plasma Ordered By: Layla Craig on 08-31-2024 Anion gap [Moles/Vol] 14 mmol/L 5-15 [facility] Automated lymphocyte count a s percentage of total leukocytesOrdered By: Layla Craig on 08-31-2024 Lymphocytes/100 WBC Auto (Unsp spec) 22.0 % [facility] BUN/creatinine ratioOrdered By: Layla Craig on 08-31-2024 Urea nitrogen/Creatinine [Mass ratio] 27.1 mg/mg High 02-28 [facility] Basic Metabolic Profile (BMP )on 08-31-2024 BUN/CRE 31.1 RATIO High 02-28 [facility] Comment on above: Performed By: #### L 100.0100, L503.5510, L500.2500, L500.3400 ####[facility] [address] [place], [address] Calcium [Mass/Vol] 9.9 mg/dL Normal 7.6-11.[address] [facility] Comment on above: Performed By: #### L 100.0100, L503.5510, L500.2500, L500.3400 ####[facility] [address] [place], [address] Chloride [Moles/Vol] 97 mmol/L Low 98-108 [facility] Comment on above: Performed By: #### L 100.0100, L503.5510, L500.2500, L500.3400 ####[facility] [address] [place], [address] CO2 [Moles/Vol] 31.0 mmol/L Normal 21.0-32.0 [facility] Comment on above: Performed By: #### L 100.0100, L503.5510, L500.2500, L500.3400 ####[facility] [address] [place], [address] Creatinine [Mass/Vol] 1.06 mg/dL Normal 0.70-1.20 [facility] Comment on above: Performed By: #### L 100.0100, L503.5510, L500.2500, L500.3400 ####[facility] [address] [place], [address] ECRCL 33.21 ml/min Low 50-250 [facility] Comment on above: Performed By: #### L 100.0100, L503.5510, L500.2500, L500.3400 ####[facility] [address] [place], [address] GAP 11 Normal 5-15 [facility] Comment on above: Performed By: #### L 100.0100, L503.5510, L500.2500, L500.3400 ####[facility] [address] [place], [address] GFR/1.73 sq M.predicted among non-blacks MDRD (S/P/Bld) [Vol rate/Area] 51 mL/min/{1.73_m2} Low >60 [facility] Comment on above: Result Comment: mL/m in/1.73m2 CKD-EPI Creatinine Equation (2020) Performed By: #### L 100.0100, L503.5510, L500.2500, L500.3400 ####[facility] [address] [place], [address] Glucose [Mass/Vol] 104 mg/dL High 70-[address] [facility] Comment on above: Performed By: #### L 100.0100, L503.5510, L500.2500, L500.3400 ####[facility] [address] [place], [address] Potassium [Moles/Vol] 4.0 mmol/L Normal 3.3-5.1 [facility] Comment on above: Performed By: #### L 100.0100, L503.5510, L500.2500, L500.3400 ####[facility] [address] [place], [address] Sodium [Moles/Vol] 140 mmol/L Normal 133-[address] [facility] Comment on above: Performed By: #### L 100.0100, L503.5510, L500.2500, L500.3400 ####[facility] [address] [place], [address] Urea nitrogen [Mass/Vol] 33 mg/dL High 4-19 [facility] Comment on above: Performed By: #### L 100.0100, L503.5510, L500.2500, L500.3400 ####[facility] [address] [place], [address] Basophil percentageOrdered B y: Layla Craig on 08-31-2024 Basophils/100 WBC (Bld) 0.9 % 0-[address] [facility] Bilirubin Test strip Ql (U)O rdered By: Scooby Mobley on 08-31-2024 Bilirubin Ql (U) Negative Negative [facility] Bilirubin directOrdered By: Scooby Mobley on 08-31-2024 Bilirubin.direct [Mass/Vol] 0.13 mg/dL 0.00-0.30 [facility] Bilirubin, totalOrdered By: Layla Craig on 08-31-2024 Bilirubin [Mass/Vol] 0.40 mg/dL 0.00-1.30 [facility] Brain without Contraston Brain without Contrast Normal [facility] CBC W/Diff, Automatedon 08-11 Absolute Lymph 1.15 X10 3/uL Normal 0.83-4.51 [facility] Comment on above: Performed By: #### L 100.0100, L503.5510, L500.2500, L500.3400 ####[facility] [address] [place], [address] Absolute Neut 7.5 X10 3/uL Normal 2.0-7.7 [facility] Comment on above: Performed By: #### L 100.0100, L503.5510, L500.2500, L500.3400 ####[facility] [address] [place], [address] Basophils/100 WBC (Bld) 0.7 % Normal 0-[address] [facility] Comment on above: Performed By: #### L 100.0100, L503.5510, L500.2500, L500.3400 ####[facility] [address] [place], [address] Eosinophils/100 WBC (Bld) 3.4 % Normal 0-5 [facility] Comment on above: Performed By: #### L 100.0100, L503.5510, L500.2500, L500.3400 ####[facility] [address] [place], [address] Erythrocyte distribution width (RBC) [Ratio] 13.1 % Normal 11.6-14.6 [facility] Comment on above: Performed By: #### L 100.0100, L503.5510, L500.2500, L500.3400 ####[facility] [address] [place], [address] Hematocrit (Bld) [Volume fraction] 32.6 % Low 37-47 [facility] Comment on above: Performed By: #### L 100.0100, L503.5510, L500.2500, L500.3400 ####[facility] [address] [place], [address] Hemoglobin (Bld) [Mass/Vol] 10.4 g/dL Low 12.0-15.0 [facility] Comment on above: Performed By: #### L 100.0100, L503.5510, L500.2500, L500.3400 ####[facility] [address] [place], [address] IG% 0.600 Normal 0.0-0.9 [facility] Comment on above: Result Comment: IG% - Immature Granulocytes (promyelocytes, myelocytes andmetamyelocytes) > 1% indicates that a LEFT SHIFT is Present. Performed By: #### L 100.0100, L503.5510, L500.2500, L500.3400 ####[facility] [address] [place], [address] Lymphocytes/100 WBC (Bld) 11.7 % Low 19-41 [facility] Comment on above: Performed By: #### L 100.0100, L503.5510, L500.2500, L500.3400 ####[facility] [address] [place], [address] MCH (RBC) [Entitic mass] 29.5 pg Normal 27.0-32.0 [facility] Comment on above: Performed By: #### L 100.0100, L503.5510, L500.2500, L500.3400 ####[facility] [address] [place], [address] MCHC (RBC) [Mass/Vol] 31.9 g/dL Low 32-36 [facility] Comment on above: Performed By: #### L 100.0100, L503.5510, L500.2500, L500.3400 ####[facility] [address] [place], [address] MCV (RBC) [Entitic vol] 92.6 fL Normal 81-99 [facility] Comment on above: Performed By: #### L 100.0100, L503.5510, L500.2500, L500.3400 ####[facility] [address] [place], [address] Monocytes/100 WBC (Bld) 7.9 % Normal 0-10 [facility] Comment on above: Performed By: #### L 100.0100, L503.5510, L500.2500, L500.3400 ####[facility] [address] [place], [address] Neutrophils/100 WBC (Bld) 75.7 % High 47-70 [facility] Comment on above: Performed By: #### L 100.0100, L503.5510, L500.2500, L500.3400 ####[facility] [address] [place], [address] Nucleated RBC (Bld) [#/Vol] 0 10*3/uL Normal 0-5 [facility] Comment on above: Performed By: #### L 100.0100, L503.5510, L500.2500, L500.3400 ####[facility] [address] [place], [address] Platelet mean volume (Bld) [Entitic vol] 9.7 fL Normal 6.2-12.0 [facility] Comment on above: Performed By: #### L 100.0100, L503.5510, L500.2500, L500.3400 ####[facility] [address] [place], [address] Platelets (Bld) [#/Vol] 320 10*3/uL Normal 150-450 [facility] Comment on above: Performed By: #### L 100.0100, L503.5510, L500.2500, L500.3400 ####[facility] [address] [place], [address] RBC (Bld) [#/Vol] 3.52 10*6/uL Low 4.2-5.[address] [facility] Comment on above: Performed By: #### L 100.0100, L503.5510, L500.2500, L500.3400 ####[facility] [address] [place], [address] RDW SD 44.3 fl High 35.1-43.9 [facility] Comment on above: Performed By: #### L 100.0100, L503.5510, L500.2500, L500.3400 ####[facility] [address] [place], [address] WBC (Bld) [#/Vol] 9.9 10*3/uL Normal 4.4-11.[address] [facility] Comment on above: Performed By: #### L 100.0100, L503.5510, L500.2500, L500.3400 ####[facility] [address] [place], [address] Absolute Lymph 1.52 X10 3/uL Normal 0.83-4.51 [facility] Comment on above: Performed By: #### L 100.0100, L500.4100, L500.4050 ####[facility] [address] [place], [address] Absolute Neut 4.5 X10 3/uL Normal 2.0-7.7 [facility] Comment on above: Performed By: #### L 100.0100, L500.4100, L500.4050 ####[facility] [address] [place], [address] Basophils/100 WBC (Bld) 0.9 % Normal 0-[address] [facility] Comment on above: Performed By: #### L 100.0100, L500.4100, L500.4050 ####[facility] [address] [place], [address] Eosinophils/100 WBC (Bld) 2.5 % Normal 0-5 [facility] Comment on above: Performed By: #### L 100.0100, L500.4100, L500.4050 ####[facility] [address] [place], [address] Erythrocyte distribution width (RBC) [Ratio] 13.1 % Normal 11.6-14.6 [facility] Comment on above: Performed By: #### L 100.0100, L500.4100, L500.4050 ####[facility] [address], [address] Hematocrit (Bld) [Volume fraction] 32.2 % Low 37-47 [facility] Comment on above: Performed By: #### L 100.0100, L500.4100, L500.4050 ####[facility] [address] [place], [id number] Hemoglobin (Bld) [Mass/Vol] 10.3 g/dL Low 12.0-15.0 [facility] Comment on above: Performed By: #### L 100.0100, L500.4100, L500.4050 ####[facility] [address] [place], [address] IG% 0.400 Normal 0.0-0.9 [facility] Comment on above: Result Comment: IG% - Immature Granulocytes (promyelocytes, myelocytes andmetamyelocytes) > 1% indicates that a LEFT SHIFT is Present. Performed By: #### L 100.0100, L500.4100, L500.4050 ####[facility] [address] [place], [address] Lymphocytes/100 WBC (Bld) 22.0 % Normal 19-41 [facility] Comment on above: Performed By: #### L 100.0100, L500.4100, L500.4050 ####[facility] [address] [place], [address] MCH (RBC) [Entitic mass] 29.9 pg Normal 27.0-32.0 [facility] Comment on above: Performed By: #### L 100.0100, L500.4100, L500.4050 ####[facility] [address] [place], [address] MCHC (RBC) [Mass/Vol] 32.0 g/dL Normal 32-36 [facility] Comment on above: Performed By: #### L 100.0100, L500.4100, L500.4050 ####[facility] [address] [place], [address] MCV (RBC) [Entitic vol] 93.3 fL Normal 81-[address] [facility] Comment on above: Performed By: #### L 100.0100, L500.4100, L500.4050 ####[facility] [address] [place], [address] Monocytes/100 WBC (Bld) 9.4 % Normal 0-[address] [facility] Comment on above: Performed By: #### L 100.0100, L500.4100, L500.4050 ####[facility] [address] [place], [address] Neutrophils/100 WBC (Bld) 64.8 % Normal 47-70 [facility] Comment on above: Performed By: #### L 100.0100, L500.4100, L500.4050 ####[facility] [address] [place], [address] Nucleated RBC (Bld) [#/Vol] 0 10*3/uL Normal 0-5 [facility] Comment on above: Performed By: #### L 100.0100, L500.4100, L500.4050 ####[facility] [address] [place], [address] Platelet mean volume (Bld) [Entitic vol] 9.6 fL Normal 6.2-12.0 [facility] Comment on above: Performed By: #### L 100.0100, L500.4100, L500.4050 ####[facility] [address] [place], [address] Platelets (Bld) [#/Vol] 338 10*3/uL Normal 150-450 [facility] Comment on above: Performed By: #### L 100.0100, L500.4100, L500.4050 ####[facility] [address] [place], [address] RBC (Bld) [#/Vol] 3.45 10*6/uL Low 4.2-5.[address] [facility] Comment on above: Performed By: #### L 100.0100, L500.4100, L500.4050 ####[facility] [address] [place], [address] RDW SD 44.6 fl High 35.1-43.9 [facility] Comment on above: Performed By: #### L 100.0100, L500.4100, L500.4050 ####[facility] [address] [place], [address] WBC (Bld) [#/Vol] 6.9 10*3/uL Normal 4.4-11.[address] [facility] Comment on above: Performed By: #### L 100.0100, L500.4100, L500.4050 ####[facility] [address] [place], [address] Calculated very low density lipoprotein (VLDL) cholesterol measurementOrdered By: Layla Craig on 08-31-2024 Calculated very low density lipoprotein (VLDL) cholesterol measurement 13 mg/dL 5-40 [facility] Carbon dioxide, total [Moles /volume] in Central venous bloodOrdered By: Layla Craig on 08-31-2024 CO2 [Moles/Vol] 27.1 mmol/L 21.0-32.0 [facility] Chloride assayOrdered By: Rm Craig on 08-31-2024 Chloride [Moles/Vol] 94 mmol/L Low 98-108 [facility] Comprehensive Metabolic Prof ilon 08-31-2024 Albumin [Mass/Vol] 3.6 g/dL Normal 3.4-4.[address] [facility] Comment on above: Order Comment: Comme nts: NPO at [place] prior to lipid panel Performed By: #### L 100.0100, L500.4100, L500.4050 ####[facility] [address] [place], [address] Albumin/Globulin [Mass ratio] 1.2 {ratio} Normal 0.9-2.4 [facility] Comment on above: Order Comment: Comme nts: NPO at [place] prior to lipid panel Performed By: #### L 100.0100, L500.4100, L500.4050 ####[facility] [address] [place], [address] ALK PHOS 69 U/L Normal 35-104 [facility] Comment on above: Order Comment: Comme nts: NPO at [place] prior to lipid panel Performed By: #### L 100.0100, L500.4100, L500.4050 ####[facility] [address] [place], [address] ALT [Catalytic activity/Vol] 5 U/L Normal <=34 [facility] Comment on above: Order Comment: Comme nts: NPO at [place] prior to lipid panel Performed By: #### L 100.0100, L500.4100, L500.4050 ####[facility] [address] [place], [address] AST [Catalytic activity/Vol] 24 U/L Normal <=31 [facility] Comment on above: Order Comment: Comme nts: NPO at [place] prior to lipid panel Performed By: #### L 100.0100, L500.4100, L500.4050 ####[facility] [address] [place], [address] Bilirubin [Mass/Vol] 0.40 mg/dL Normal 0.00-1.30 [facility] Comment on above: Order Comment: Comme nts: NPO at [place] prior to lipid panel Performed By: #### L 100.0100, L500.4100, L500.4050 ####[facility] [address] [place], [address] BUN/CRE 27.1 RATIO High 10-20 [facility] Comment on above: Order Comment: Comme nts: NPO at [place] prior to lipid panel Performed By: #### L 100.0100, L500.4100, L500.4050 ####[facility] [address] [place], [address] Calcium [Mass/Vol] 10.0 mg/dL Normal 7.6-11.[address] [facility] Comment on above: Order Comment: Comme nts: NPO at [place] prior to lipid panel Performed By: #### L 100.0100, L500.4100, L500.4050 ####[facility] [address] [place], [address] Chloride [Moles/Vol] 94 mmol/L Low 98-108 [facility] Comment on above: Order Comment: Comme nts: NPO at [place] prior to lipid panel Performed By: #### L 100.0100, L500.4100, L500.4050 ####[facility] [address] [place], [address] CO2 [Moles/Vol] 27.1 mmol/L Normal 21.0-32.0 [facility] Comment on above: Order Comment: Comme nts: NPO at [place] prior to lipid panel Performed By: #### L 100.0100, L500.4100, L500.4050 ####[facility] [address] [place], [address] Creatinine [Mass/Vol] 0.94 mg/dL Normal 0.70-1.20 [facility] Comment on above: Order Comment: Comme nts: NPO at [place] prior to lipid panel Performed By: #### L 100.0100, L500.4100, L500.4050 ####[facility] [address] [place], [address] ECRCL 37.00 ml/min Low 50-250 [facility] Comment on above: Order Comment: Comme nts: NPO at [place] prior to lipid panel Performed By: #### L 100.0100, L500.4100, L500.4050 ####[facility] [address] [place], [address] GAP 14 Normal 5-15 [facility] Comment on above: Order Comment: Comme nts: NPO at [place] prior to lipid panel Performed By: #### L 100.0100, L500.4100, L500.4050 ####[facility] [address] [place], [address] GFR/1.73 sq M.predicted among non-blacks MDRD (S/P/Bld) [Vol rate/Area] 59 mL/min/{1.73_m2} Low >60 [facility] Comment on above: Order Comment: Comme nts: NPO at [place] prior to lipid panel Result Comment: mL/m in/1.73m2 CKD-EPI Creatinine Equation (2020) Performed By: #### L 100.0100, L500.4100, L500.4050 ####[facility] [address] [place], [address] Globulin (S) [Mass/Vol] 2.9 g/dL Normal 2.2-4.2 [facility] Comment on above: Order Comment: Comme nts: NPO at [place] prior to lipid panel Performed By: #### L 100.0100, L500.4100, L500.4050 ####[facility] [address] [place], [address] Glucose [Mass/Vol] 102 mg/dL High 70-[address] [facility] Comment on above: Order Comment: Comme nts: NPO at [place] prior to lipid panel Performed By: #### L 100.0100, L500.4100, L500.4050 ####[facility] [address] [place], [address] Potassium [Moles/Vol] 3.6 mmol/L Normal 3.3-5.1 [facility] Comment on above: Order Comment: Comme nts: NPO at [place] prior to lipid panel Performed By: #### L 100.0100, L500.4100, L500.4050 ####[facility] [address] [place], [address] Sodium [Moles/Vol] 135 mmol/L Normal 133-[address] [facility] Comment on above: Order Comment: Comme nts: NPO at [place] prior to lipid panel Performed By: #### L 100.0100, L500.4100, L500.4050 ####[facility] [address] [place], [address] T PROT 6.5 g/dL Normal 5.9-8.4 [facility] Comment on above: Order Comment: Comme nts: NPO at [place] prior to lipid panel Performed By: #### L 100.0100, L500.4100, L500.4050 ####[facility] [address] [place], [address] Urea nitrogen [Mass/Vol] 25 mg/dL High 4-19 [facility] Comment on above: Order Comment: Comme nts: NPO at [place] prior to lipid panel Performed By: #### L 100.0100, L500.4100, L500.4050 ####[facility] [address] [place], [address] Discharge Instructionon 08-11 Discharge Instruction Normal [facility] Emergency Department Summary on 08-31-2024 Emergency Department Summary Normal [facility] Eosinophil percentageOrdered By: Layla Craig on 08-31-2024 Eosinophils/100 WBC (Bld) 2.5 % 0-5 [facility] Erythrocyte distribution wid th ratioOrdered By: Layla Craig on 08-31-2024 Erythrocyte distribution width (RBC) [Ratio] 13.1 % 11.6-14.6 [facility] Erythrocyte distribution wid th standard deviationOrdered By: Layla Craig on 08-31-2024 Erythrocyte distribution width (RBC) [Ratio] 44.6 fl High 35.1-43.9 [facility] Glomerular filtration rate ( GFR) estimation/1.73 sq m using serum, plasma, or whole bOrdered By: Layla Craig on 08-31-2024 GFR/1.73 sq M.predicted among non-blacks MDRD (S/P/Bld) [Vol rate/Area] 59 mL/min/{1.73_m2} Low >60 [facility] Hematocrit Auto (Bld) [Volum e fraction]Ordered By: Layla Craig on 08-31-2024 Hematocrit (Bld) [Volume fraction] 32.2 % Low 37-47 [facility] Hemoglobin measurementOrdere d By: Layla Craig on 08-31-2024 Hemoglobin (Bld) [Mass/Vol] 10.3 g/dL Low 12.0-15.0 [facility] Immature granulocytes/100 WB C Auto (Bld)Ordered By: Layla Craig on 08-31-2024 Immature granulocytes/100 WBC (Bld) 0.400 % 0.0-0.9 [facility] Ketones Test strip Ql (U)Ord ered By: Scooby Mobley on 08-31-2024 Ketones Ql (U) Negative Negative [facility] LDL calc ser/plasOrdered By: Layla Craig on 08-31-2024 Cholesterol in LDL [Mass/Vol] 119 mg/dL [facility] Lipid Profileon 08-31-2024 CHOL:HDL 2.46 Normal [facility] Comment on above: Order Comment: Comme nts: NPO at [place] prior to lipid panel Performed By: #### L 100.0100, L500.4100, L500.4050 ####[facility] [address] [place], [address] Cholesterol [Mass/Vol] 222 mg/dL High <=200 [facility] Comment on above: Order Comment: Comme nts: NPO at [place] prior to lipid panel Result Comment: Chol esterol level, Desirable <200 mg/dLBorderline high cholesterol 200-239 mg/dLHigh cholesterol >=240 mg/dLRecommendations of the NCEP Adult Treatment Panel for thefollowing risk-cutoff thresholds for the [place] Americanpopulation. Performed By: #### L 100.0100, L500.4100, L500.4050 ####[facility] [address] [place], [address] Cholesterol in HDL [Mass/Vol] 90 mg/dL Normal [facility] Comment on above: Order Comment: Comme nts: NPO at [place] prior to lipid panel Result Comment: Arely onal Cholesterol Education Program (NCEP) guidelines:<40 mg/dL: Low HDL-cholesterol (major risk factor for CHD)>= 60 mg/dL: High HDL-cholesterol (negative risk factor forCHD)HDL-cholesterol is affected by a number of factors, e.g.smoking, exercise, hormones, sex and age. Performed By: #### L 100.0100, L500.4100, L500.4050 ####[facility] [address] [place], [address] Cholesterol in LDL [Mass/Vol] 119 mg/dL Normal [facility] Comment on above: Order Comment: Comme nts: NPO at [place] prior to lipid panel Result Comment: Bord ulxnbr=086-920 mg/dL Higher Mkfo=088 mg/dL or greater Performed By: #### L 100.0100, L500.4100, L500.4050 ####[facility] [address] [place], [address] Cholesterol in VLDL [Mass/Vol] 13 mg/dL Normal 5-40 [facility] Comment on above: Order Comment: Comme nts: NPO at [place] prior to lipid panel Performed By: #### L 100.0100, L500.4100, L500.4050 ####[facility] [address] [place], [address] Triglyceride [Mass/Vol] 66 mg/dL Normal [facility] Comment on above: Order Comment: Comme nts: NPO at [place] prior to lipid panel Result Comment: The drugs N-Acetylcysteine and Metamizole may falselydepress this assay.Normal range: <150 mg/dLBorderline High: 150-199 mg/dLHigh: 200-499 mg/dLVery High: >500 mg/dL Performed By: #### L 100.0100, L500.4100, L500.4050 ####[facility] [address] [place], [address] Liver Profileon 08-31-2024 Albumin [Mass/Vol] 3.7 g/dL Normal 3.4-4.[address] [facility] Comment on above: Performed By: #### L 100.0100, L503.5510, L500.2500, L500.3400 ####[facility] [address] [place], [address] ALK PHOS 69 U/L Normal 35-104 [facility] Comment on above: Performed By: #### L 100.0100, L503.5510, L500.2500, L500.3400 ####[facility] [address] [place], [address] ALT [Catalytic activity/Vol] 9 U/L Normal <=34 [facility] Comment on above: Performed By: #### L 100.0100, L503.5510, L500.2500, L500.3400 ####[facility] [address] [place], [address] AST [Catalytic activity/Vol] 26 U/L Normal <=31 [facility] Comment on above: Performed By: #### L 100.0100, L503.5510, L500.2500, L500.3400 ####[facility] [address] [place], [address] Bilirubin [Mass/Vol] 0.30 mg/dL Normal 0.00-1.30 [facility] Comment on above: Performed By: #### L 100.0100, L503.5510, L500.2500, L500.3400 ####[facility] [address] [place], [address] Bilirubin.direct [Mass/Vol] 0.13 mg/dL Normal 0.00-0.30 [facility] Comment on above: Performed By: #### L 100.0100, L503.5510, L500.2500, L500.3400 ####[facility] [address] [place], [address] Globulin (S) [Mass/Vol] 3.0 g/dL Normal 2.2-4.[address] [facility] Comment on above: Performed By: #### L 100.0100, L503.5510, L500.2500, L500.3400 ####[facility] [address] [place], [address] T PROT 6.6 g/dL Normal 5.9-8.4 [facility] Comment on above: Performed By: #### L 100.0100, L503.5510, L500.2500, L500.3400 ####[facility] [address] [place], [address] MCV (mean corpuscular volume ) determinationOrdered By: Layla Craig on 08-31-2024 MCV (RBC) [Entitic vol] 93.3 fL 81-[address] [facility] MR/CON.PCM.NEon 08-31-2024 MR/CON.PCM.NE Normal [facility] Mean corpuscular hemoglobin (MCH) determinationOrdered By: Layla Craig on 08-31-2024 MCH (RBC) [Entitic mass] 29.9 pg 27.0-32.0 [facility] Monocyte percentageOrdered B y: Layla Craig on 08-31-2024 Monocytes/100 WBC (Bld) 9.4 % 0-[address] [facility] Mucus LM Ql (Urine sed)Order ed By: Scooby Mobley on 08-31-2024 Mucus Ql (Urine sed) 0 SEEN /hpf [facility] Neutrophil percentageOrdered By: Layla Craig on 08-31-2024 Neutrophils/100 WBC (Bld) 64.8 % 47-70 [facility] Nitrite Test strip Ql (U)Ord ered By: Scooby Mobley on 08-31-2024 Nitrite Ql (U) Negative Negative [facility] No Panel InformationOrdered By: Juan José Thorpe on 08-31-2024 Negative < 200 ng/mL [facility] No Panel InformationOrdered By: Layla Craig on 08-31-2024 24 U/L <32 [facility] Platelet countOrdered By: Rm Craig on 08-31-2024 Platelets (Bld) [#/Vol] 338 10*3/uL 150-450 [facility] Potassium measurement (mass/ volume)Ordered By: Lalya Craig on 08-31-2024 Potassium (Unsp spec) [Mass/Vol] 3.6 mmol/L 3.3-5.1 [facility] Protein Test strip Ql (U)Ord ered By: Scooby Mobley on 08-31-2024 Protein Ql (U) 30 mg/dl High Negative [facility] RBC Auto (Bld) [#/Vol]Ordere d By: Layla Craig on 08-31-2024 RBC (Bld) [#/Vol] 3.45 10*6/uL Low 4.2-5.[address] [facility] Screening urine fentanyl fran surementOrdered By: Juan José Thorpe on 08-31-2024 fentaNYL Screen Ql (U) Negative [facility] Serum creatinine measurement (mass/volume)Ordered By: Layla Craig on 08-31-2024 Creatinine [Mass/Vol] 0.94 mg/dL 0.70-1.20 [facility] Serum globulin measurementOr dered By: Layla Craig on 08-31-2024 Globulin (S) [Mass/Vol] 2.9 g/dL 2.2-4.[address] [facility] Serum glucose measurement (m ass/volume)Ordered By: Layla Craig on 08-31-2024 Glucose [Mass/Vol] 102 mg/dL High 70-[address] [facility] Serum or plasma alanine clifton otransferase (ALT) measurementOrdered By: Layla Craig on 08-31-2024 ALT [Catalytic activity/Vol] 5 U/L <35 [facility] Serum or plasma albumin manuel urement (mass/volume)Ordered By: Layla Craig on 08-31-2024 Albumin [Mass/Vol] 3.6 g/dL 3.4-4.[address] [facility] Serum or plasma albumin/glob ulin mass ratioOrdered By: Layla Craig on 08-31-2024 Albumin/Globulin [Mass ratio] 1.2 {ratio} 0.9-2.4 [facility] Serum or plasma alkaline bibi sphatase measurementOrdered By: Layla Craig on 08-31-2024 ALP [Catalytic activity/Vol] 69 U/L 35-104 [facility] Serum or plasma calcium manuel urement (mass/volume)Ordered By: Layla Craig on 08-31-2024 Calcium [Mass/Vol] 10.0 mg/dL 7.6-11.[address] [facility] Serum or plasma cholesterol in HDL measurement (mass/volume)Ordered By: Layla Craig on 08-31-2024 Cholesterol in HDL [Mass/Vol] 90 mg/dL >40 [facility] Serum or plasma cholesterol measurement (mass/volume)Ordered By: Layla Craig on 08-31-2024 Cholesterol [Mass/Vol] 222 mg/dL High <201 [facility] Serum or plasma ethanol manuel urement (mass/volume)Ordered By: Juan José Thorpe on 08-31-2024 Ethanol [Mass/Vol] mg/dL <10.[address] [facility] Serum or plasma urea nitroge n measurement (mass/volume)Ordered By: Layla Craig on 08-31-2024 Urea nitrogen [Mass/Vol] 25 mg/dL High 4-19 [facility] Sodium levelOrdered By: Bharathi Craig on 08-31-2024 Sodium [Moles/Vol] 135 mmol/L 133-[address] [facility] Squamous epithelial cells de tection in urine sediment by light microscopyOrdered By: Scooby Mobley on 08-31-2024 Epithelial cells.squamous LM Ql (Urine sed) 0 SEEN /hpf - [facility] Total proteinOrdered By: Maykel Craig on 08-31-2024 Protein [Mass/Vol] 6.5 g/dL 5.9-8.[address] [facility] Urinalysis, Completeon 08-31 BACTERIA 0 SEEN Normal None Seen [facility] Comment on above: Order Comment: MARV COKEROR TO SPECIFY Performed By: #### L 400.0001 ####[facility] [address] [place], [address] EPI,SQUAMOUS 0 SEEN Normal - [facility] Comment on above: Order Comment: MARV COKEROR TO SPECIFY Performed By: #### L 400.0001 ####[facility] [address] [place], [address] Mucus Ql (Urine sed) 0 SEEN Normal [facility] Comment on above: Order Comment: COLLE CTOR TO SPECIFY Performed By: #### L 400.0001 ####[facility] [address] [place], [address] RBC 0 SEEN Normal 0-5 [facility] Comment on above: Order Comment: MARV CTOR TO SPECIFY Performed By: #### L 400.0001 ####[facility] [address] [place], [address] WBC 0 SEEN Normal 0-5 [facility] Comment on above: Order Comment: MARV CTOR TO SPECIFY Performed By: #### L 400.0001 ####[facility] [address] [place], [address] Urine clarityOrdered By: Ronald Mobley on 08-31-2024 Clarity (U) Clear Clear [facility] Urine color determinationOrd ered By: Scooby Mobley on 08-31-2024 Color (U) Yellow Yellow [facility] Urine glucose detectionOrder ed By: Scooby Mobley on 08-31-2024 Glucose Ql (U) Normal mg/dl Normal [facility] Urine leukocyte esterase det ection by dipstickOrdered By: Scooby Mobley on 08-31-2024 Leukocyte esterase Test strip Ql (U) Negative Negative [facility] Urine pHOrdered By: Scooby naylor on 08-31-2024 pH (U) 7.0 [pH] 5.0 - 8.0 [facility] Urine phencyclidine (PCP) de tectionOrdered By: Juan José Thorpe on 08-31-2024 Phencyclidine Ql (U) Negative < 25 ng/mL [facility] Urine sediment bacteria coun t by microscopy (number/high power field)Ordered By: Scooby Mobley on 08-31-2024 Bacteria LM.HPF (Urine sed) [#/Area] 0 /[HPF] None Seen [facility] Urine specific gravity measu rementOrdered By: Scooby Mobley on 08-31-2024 Specific gravity (U) [Rel density] 1.010 1.002-1.030 [facility] Urine urobilinogen measureme ntOrdered By: Scooby Mobley on 08-31-2024 Urobilinogen Ql (U) Normal mg/dl Normal [facility] Venous blood ammonia measure mentOrdered By: Scooby Mobley on 08-31-2024 Ammonia (P) [Moles/Vol] 19.3 umol/L [facility] White blood cell (WBC) count Ordered By: Layla Craig on 08-31-2024 WBC (Bld) [#/Vol] 6.9 10*3/uL 4.4-11.[address] [facility] White blood cell countOrdere d By: Scooby Mobley on 08-31-2024 White blood cell count 0 SEEN /hpf 0-5 [facility] 12 Lead EKGon 08-30-2024 12 Lead EKG Normal [facility] Absolute neutrophil countOrd ered By: Ayaz Hinton on 08-30-2024 Absolute neutrophil count 5.3 X10^3/uL 2.0-7.7 [facility] Activated partial thrombopla stin time (aPTT) in platelet poor plasma by coagulation aOrdered By: Ayaz Hinton on 08-30-2024 aPTT Coag (PPP) [Time] 32.4 s 24.1-36.2 [facility] Ammoniaon 08-30-2024 Ammonia (P) [Moles/Vol] 14.8 umol/L Normal [facility] Comment on above: Performed By: #### L 501.9520, L503.5510, L503.0106 ####[facility] [address] [place], [address] Anion gap [Moles/Vol]Ordered By: Ayaz Hinton on 08-30-2024 Anion gap in Serum or Plasma 14 5-15 [facility] Assessment of wrist artery p atency prior to arterial punctureOrdered By: Layla Craig on 08-30-2024 Arterial patency Wrist artery --pre arterial puncture Positive [facility] BUN/creatinine ratioOrdered By: Ayaz Hinton on 08-30-2024 BUN/creatinine ratio 28.8 RATIO High 10-20 [facility] Basic Metabolic Profile (BMP )on 08-30-2024 BUN/CRE 28.8 RATIO High 10-20 [facility] Comment on above: Performed By: #### L 300.3900, L501.4021, L500.2500, L100.0100 ####[facility] [address] [place], [address] Calcium [Mass/Vol] 9.9 mg/dL Normal 7.6-11.[address] [facility] Comment on above: Performed By: #### L 300.3900, L501.4021, L500.2500, L100.0100 ####[facility] [address] [place], [address] Chloride [Moles/Vol] 95 mmol/L Low 98-108 [facility] Comment on above: Performed By: #### L 300.3900, L501.4021, L500.2500, L100.0100 ####[facility] [address] [place], [address] CO2 [Moles/Vol] 28.0 mmol/L Normal 21.0-32.0 [facility] Comment on above: Performed By: #### L 300.3900, L501.4021, L500.2500, L100.0100 ####[facility] [address] [place], [address] Creatinine [Mass/Vol] 1.06 mg/dL Normal 0.70-1.20 [facility] Comment on above: Performed By: #### L 300.3900, L501.4021, L500.2500, L100.0100 ####[facility] [address] [place], [address] ECRCL 32.40 ml/min Low 50-250 [facility] Comment on above: Performed By: #### L 300.3900, L501.4021, L500.2500, L100.0100 ####[facility] [address] [place], [address] GAP 14 Normal 5-15 [facility] Comment on above: Performed By: #### L 300.3900, L501.4021, L500.2500, L100.0100 ####[facility] [address] [place], [address] GFR/1.73 sq M.predicted among non-blacks MDRD (S/P/Bld) [Vol rate/Area] 51 mL/min/{1.73_m2} Low >60 [facility] Comment on above: Result Comment: mL/m in/1.73m2 CKD-EPI Creatinine Equation (2020) Performed By: #### L 300.3900, L501.4021, L500.2500, L100.0100 ####[facility] [address] [place], [address] Glucose [Mass/Vol] 123 mg/dL High 70-[address] [facility] Comment on above: Performed By: #### L 300.3900, L501.4021, L500.2500, L100.0100 ####[facility] [address] [place], [address] Potassium [Moles/Vol] 4.2 mmol/L Normal 3.3-5.1 [facility] Comment on above: Result Comment: Hemo lysis present, Results??could be affected.?? Performed By: #### L 300.3900, L501.4021, L500.2500, L100.0100 ####[facility] [address] [place], [address] Sodium [Moles/Vol] 136 mmol/L Normal 133-[address] [facility] Comment on above: Performed By: #### L 300.3900, L501.4021, L500.2500, L100.0100 ####[facility] [address] [place], [address] Urea nitrogen [Mass/Vol] 31 mg/dL High 4-19 [facility] Comment on above: Performed By: #### L 300.3900, L501.4021, L500.2500, L100.0100 ####[facility] [address] [place], [address] Basophil percentageOrdered B y: Ayaz Blevinsne on 08-30-2024 Basophil percentage 0.9 % 0-[address] [facility] Bilirubin Test strip Ql (U)O rdered By: Ayaz Blevinsne on 08-30-2024 Bilirubin Ql (U) Negative Negative [facility] Blood Gases by CPSon 025 TERESA TEST Positive Normal [facility] Comment on above: Performed By: #### L 9000.0800 ####[facility] [address] [place], [address] Base excess Calc (Bld) [Moles/Vol] 12 mmol/L High -2 to +2 [facility] Comment on above: Performed By: #### L 9000.0800 ####[facility] [address] [place], [address] Blood Gas Type ART Normal [facility] Comment on above: Performed By: #### L 9000.0800 ####[facility] [address] [place], [address] CO2 [Moles/Vol] 37 mmol/L Normal [facility] Comment on above: Performed By: #### L 9000.0800 ####[facility] [address] [place], [address] FI02 21.0 Normal [facility] Comment on above: Performed By: #### L 9000.0800 ####[facility] [address] [place], [address] HCO3 (Bld) [Moles/Vol] 35.3 mmol/L High 22-[address] [facility] Comment on above: Performed By: #### L 9000.0800 ####[facility] [address] [place], [address] Mode Not entered Normal [facility] Comment on above: Performed By: #### L 9000.0800 ####[facility] [address] [place], [address] O2 Delivery Dev Room Air Normal [facility] Comment on above: Performed By: #### L 9000.0800 ####[facility] [address] [place], [address] pCO2 45.8 mmHg High 35-45 [facility] Comment on above: Performed By: #### L 9000.0800 ####[facility] [address] [place], [address] pH (Bld) 7.50 [pH] High 7.35-7.45 [facility] Comment on above: Performed By: #### L 9000.0800 ####[facility] [address] [place], [address] PO2 64 mmHG Low 75-100 [facility] Comment on above: Performed By: #### L 9000.0800 ####[facility] [address] [place], [address] SITE R Radial Normal [facility] Comment on above: Performed By: #### L 9000.0800 ####[facility] [address] [place], [address] SO2 93 Low 95-99 [facility] Comment on above: Performed By: #### L 9000.0800 ####[facility] [address] [place], [address] Blood base excess determinat ionOrdered By: Layla Craig on 08-30-2024 Base excess Calc (BldV) [Moles/Vol] 12 mmol/L High -2-2 [facility] Blood bicarbonate measuremen tOrdered By: Layla Craig on 08-30-2024 HCO3 (Bld) [Moles/Vol] 35.3 mmol/L High 22-[address] [facility] CBC W/Diff, Automatedon 08-11 Absolute Lymph 1.38 X10 3/uL Normal 0.83-4.51 [facility] Comment on above: Performed By: #### L 300.3900, L501.4021, L500.2500, L100.0100 ####[facility] [address] [place], [address] Absolute Neut 5.3 X10 3/uL Normal 2.0-7.7 [facility] Comment on above: Performed By: #### L 300.3900, L501.4021, L500.2500, L100.0100 ####[facility] [address] [place], [address] Basophils/100 WBC (Bld) 0.9 % Normal 0-[address] [facility] Comment on above: Performed By: #### L 300.3900, L501.4021, L500.2500, L100.0100 ####[facility] [address] [place], [address] Eosinophils/100 WBC (Bld) 1.9 % Normal 0-5 [facility] Comment on above: Performed By: #### L 300.3900, L501.4021, L500.2500, L100.0100 ####[facility] [address] [place], [address] Erythrocyte distribution width (RBC) [Ratio] 13.1 % Normal 11.6-14.6 [facility] Comment on above: Performed By: #### L 300.3900, L501.4021, L500.2500, L100.0100 ####[facility] [address] [place], [address] Hematocrit (Bld) [Volume fraction] 38.4 % Normal 37-47 [facility] Comment on above: Performed By: #### L 300.3900, L501.4021, L500.2500, L100.0100 ####[facility] [address] [place], [address] Hemoglobin (Bld) [Mass/Vol] 12.4 g/dL Normal 12.0-15.0 [facility] Comment on above: Performed By: #### L 300.3900, L501.4021, L500.2500, L100.0100 ####[facility] [address] [place], [address] IG% 0.500 Normal 0.0-0.9 [facility] Comment on above: Result Comment: IG% - Immature Granulocytes (promyelocytes, myelocytes andmetamyelocytes) > 1% indicates that a LEFT SHIFT is Present. Performed By: #### L 300.3900, L501.4021, L500.2500, L100.0100 ####[facility] [address] [place], [address] Lymphocytes/100 WBC (Bld) 18.4 % Low 19-41 [facility] Comment on above: Performed By: #### L 300.3900, L501.4021, L500.2500, L100.0100 ####[facility] [address] [place], [address] MCH (RBC) [Entitic mass] 30.0 pg Normal 27.0-32.0 [facility] Comment on above: Performed By: #### L 300.3900, L501.4021, L500.2500, L100.0100 ####[facility] [address] [place], [address] MCHC (RBC) [Mass/Vol] 32.3 g/dL Normal 32-36 [facility] Comment on above: Performed By: #### L 300.3900, L501.4021, L500.2500, L100.0100 ####[facility] [address] [place], [address] MCV (RBC) [Entitic vol] 92.8 fL Normal 81-99 [facility] Comment on above: Performed By: #### L 300.3900, L501.4021, L500.2500, L100.0100 ####[facility] [address] [place], [address] Monocytes/100 WBC (Bld) 8.2 % Normal 0-10 [facility] Comment on above: Performed By: #### L 300.3900, L501.4021, L500.2500, L100.0100 ####[facility] [address] [place], [address] Neutrophils/100 WBC (Bld) 70.1 % High 47-70 [facility] Comment on above: Performed By: #### L 300.3900, L501.4021, L500.2500, L100.0100 ####[facility] [address] [place], [address] Nucleated RBC (Bld) [#/Vol] 0 10*3/uL Normal 0-5 [facility] Comment on above: Performed By: #### L 300.3900, L501.4021, L500.2500, L100.0100 ####[facility] [address] [place], [address] Platelet mean volume (Bld) [Entitic vol] 9.6 fL Normal 6.2-12.0 [facility] Comment on above: Performed By: #### L 300.3900, L501.4021, L500.2500, L100.0100 ####[facility] [address] [place], [address] Platelets (Bld) [#/Vol] 337 10*3/uL Normal 150-450 [facility] Comment on above: Performed By: #### L 300.3900, L501.4021, L500.2500, L100.0100 ####[facility] [address] [place], [address] RBC (Bld) [#/Vol] 4.14 10*6/uL Low 4.2-5.[address] [facility] Comment on above: Performed By: #### L 300.3900, L501.4021, L500.2500, L100.0100 ####[facility] [address] [place], [address] RDW SD 44.8 fl High 35.1-43.9 [facility] Comment on above: Performed By: #### L 300.3900, L501.4021, L500.2500, L100.0100 ####[facility] [address] [place], [address] WBC (Bld) [#/Vol] 7.5 10*3/uL Normal 4.4-11.[address] [facility] Comment on above: Performed By: #### L 300.3900, L501.4021, L500.2500, L100.0100 ####[facility] [address] [place], [address] CO2 (BldV) [Moles/Vol]Ordere d By: Layla Craig on 08-30-2024 CO2 [Moles/Vol] 31 mmol/L 23-33 [facility] Calcium [Mass/Vol]Ordered By : Ayaz Hinton on 08-30-2024 Serum or plasma calcium measurement (mass/volume) 9.9 mg/dL 7.6-11.0 [facility] Carbon dioxide, total [Moles /volume] in Central venous bloodOrdered By: Ayaz Hinton on 08-30-2024 Carbon dioxide, total [Moles/volume] in Central venous blood 28.0 mmol/L 21.0-32.0 [facility] Chest 1 Viewon 08-30-2024 Chest 1 View Normal [facility] Chloride assayOrdered By: Freddie Hinton on 08-30-2024 Chloride assay 95 mmol/L Low 98-108 [facility] Clarity (U)Ordered By: Dannie Hinton on 08-30-2024 Urine clarity Cloudy Clear [facility] Color (U)Ordered By: Ayaz Hinton on 08-30-2024 Urine color determination Yellow Yellow [facility] Creatinine [Mass/Vol]Ordered By: Ayaz Hinton on 08-30-2024 Serum creatinine measurement (mass/volume) 1.06 mg/dL 0.70-1.20 [facility] Echo Complete W/ Contraston 08-30-2024 Echo Complete W/ Contrast Normal [facility] Emergency Department Summary on 08-30-2024 Emergency Department Summary Normal [facility] Eosinophil percentageOrdered By: Ayaz Hinton on 08-30-2024 Eosinophil percentage 1.9 % 0-5 [facility] Erythrocyte distribution wid th (RBC) [Ratio]Ordered By: Ayaz Hinton on 08-30-2024 Erythrocyte distribution width ratio 13.1 % 11.6-14.6 [facility] Erythrocyte distribution width standard deviation 44.8 fl High 35.1-43.9 [facility] Estimation of creatinine mary ellen aranceOrdered By: Ayaz Hinton on 08-30-2024 Estimation of creatinine clearance 32.40 ml/min Low 50-250 [facility] GFR/1.73 sq M.predicted jane g non-blacks MDRD (S/P/Bld) [Vol rate/Area]Ordered By: Ayaz Hinton on 08-30-2024 Glomerular filtration rate (GFR) estimation/1.73 sq m using serum, plasma, or whole b 51 Low >60 [facility] Glucose [Mass/Vol]Ordered By : Ayaz Hinton on 08-30-2024 Serum glucose measurement (mass/volume) 123 mg/dL High 70-99 [facility] H AND P Exam - Hospitaliston 08-30-2024 H&P Exam - Hospitalist Normal [facility] HIP, UNI W/ Pelvis 2-3 Views on 08-30-2024 HIP, UNI W/ Pelvis 2-3 Views Normal [facility] Hematocrit Auto (Bld) [Volum e fraction]Ordered By: Ayaz Hinton on 08-30-2024 Automated blood hematocrit (percentage) 38.4 % 37-47 [facility] Hemoglobin measurementOrdere d By: Ayaz Hinton on 08-30-2024 Hemoglobin measurement 12.4 g/dL 12.0-15.0 [facility] Immature granulocytes/100 WB C Auto (Bld)Ordered By: Ayaz Hinton on 08-30-2024 Automated immature granulocyte percentage 0.500 % 0.0-0.9 [facility] International normalized rat io (INR) calculationOrdered By: Ayaz Hinton on 08-30-2024 International normalized ratio (INR) calculation 1.0 [facility] Ketones Test strip Ql (U)Ord ered By: Ayaz Hinton on 08-30-2024 Ketones Ql (U) Negative Negative [facility] Knee 1 or 2 Viewson 08-31-19 25 Knee 1 or 2 Views Normal [facility] L499.0042on 08-30-2024 Trop T High Sen 37 ng/L High <=14 [facility] Comment on above: Performed By: #### L 499.0042 ####[facility] [address] [place], [address] L499.0043on 08-30-2024 Trop T High Sen 38 ng/L High <=14 [facility] Comment on above: Performed By: #### L 499.0043 ####[facility] [address] [place], [address] L501.4021on 08-30-2024 Trop T High Sen 26 ng/L High <=14 [facility] Comment on above: Result Comment: Hemo lysis present, Results??could be affected.?? Performed By: #### L 300.3900, L501.4021, L500.2500, L100.0100 ####[facility] [address] [place], [address] Leukocyte esterase Test stri p Ql (U)Ordered By: Ayaz Hinton on 08-30-2024 Urine leukocyte esterase detection by dipstick 100 /ul High Negative [facility] Lymphocytes Auto (Unsp spec) [#/Vol]Ordered By: Ayaz Hinton on 08-30-2024 Absolute lymphocyte count 1.38 X10^3/uL 0.83-4.51 [facility] Lymphocytes/100 WBC Auto (Un sp spec)Ordered By: Ayaz Hinton on 08-30-2024 Automated lymphocyte count as percentage of total leukocytes 18.4 % Low 19-41 [facility] MCV (RBC) [Entitic vol]Order ed By: Ayaz Hinton on 08-30-2024 MCV (mean corpuscular volume) determination 92.8 fL 81-99 [facility] Mean corpuscular hemoglobin (MCH) determinationOrdered By: Ayaz Hinton on 08-30-2024 Mean corpuscular hemoglobin (MCH) determination 30.0 pg 27.0-32.0 [facility] Mean corpuscular hemoglobin concentration (MCHC) determinationOrdered By: Ayaz Hinton on 08-30-2024 Mean corpuscular hemoglobin concentration (MCHC) determination 32.3 g/dL 32-36 [facility] Mean platelet volume determi nationOrdered By: Ayaz Hinton on 08-30-2024 Mean platelet volume determination 9.6 fl 6.2-12.0 [facility] Measurement, pHOrdered By: Julien Craig on 08-30-2024 pH (Unsp spec) 7.50 [pH] High 7.35-7.45 [facility] Microscopic analysis of urin e for red blood cells (RBC)Ordered By: Ayaz Hinton on 08-30-2024 Microscopic analysis of urine for red blood cells (RBC) 0 SEEN /hpf 0-5 [facility] Monocyte percentageOrdered B y: Ayaz Hinton on 08-30-2024 Monocyte percentage 8.2 % 0-[address] [facility] Mucus LM Ql (Urine sed)Order ed By: Ayaz Hinton on 08-30-2024 Mucus Ql (Urine sed) 1+ /hpf [facility] Neutrophil percentageOrdered By: Ayaz Hinton on 08-30-2024 Neutrophil percentage 70.1 % High 47-70 [facility] Nitrite Test strip Ql (U)Ord ered By: Ayaz Hinton on 08-30-2024 Nitrite Ql (U) Negative Negative [facility] No Panel InformationOrdered By: Layla Craig on 08-30-2024 ART [facility] R Radial [facility] Not entered [facility] Room Air [facility] 16:51:18 [facility] craig [facility] Yes [facility] Nucleated red blood cell per centageOrdered By: Ayaz Hinton on 08-30-2024 Nucleated red blood cell percentage 0 % 0-5 [facility] Partial Thromboplast Timeon 08-30-2024 aPTT Coag (Bld) [Time] 32.4 s Normal 24.1-36.2 [facility] Comment on above: Performed By: #### L 300.3900, L300.4310 ####[facility] [address] [place], [place], [address] Platelet countOrdered By: Freddie Hinton on 08-30-2024 Platelet count 337 K/mm3 150-450 [facility] Potassium (Unsp spec) [Mass/ Vol]Ordered By: Ayaz Hinton on 08-30-2024 Potassium measurement (mass/volume) 4.2 mmol/L 3.3-5.1 [facility] Protein Test strip Ql (U)Ord ered By: Ayaz Hinton on 08-30-2024 Protein Ql (U) 30 mg/dl High Negative [facility] Urine protein assay by test strip, semi-quantitative 30 mg/dl High Negative [facility] Prothrombin Time w/INRon INR Coag (PPP) [Relative time] 1.0 {INR} Normal [facility] Comment on above: Performed By: #### L 300.3900, L300.4310 ####[facility] [address] [place], [address] PT Coag (PPP) [Time] 13.2 s Normal 11.7-14.9 [facility] Comment on above: Performed By: #### L 300.3900, L300.4310 ####[facility] [address] [place], [address] INR Normal [facility] Comment on above: Order Comment: REDRA W. PREVIOUS SPECIMEN REJECTED DUE TOCLOTTED. 08/30/24 1159 Rosy Salas. Result Comment: Canc elled via OM: Unable to obtain specimen Performed By: #### L 300.3900 ####[facility] [address] [place], [address] PROTIME Normal 11.7-14.9 [facility] Comment on above: Order Comment: REDRA W. PREVIOUS SPECIMEN REJECTED DUE TOCLOTTED. 08/30/24 1159 Rosy Salas. Result Comment: Canc elled via OM: Unable to obtain specimen Performed By: #### L 300.3900 ####[facility] [address] [place], [address] INR Normal [facility] Comment on above: Result Comment: This specimen has been REJECTED due to Laboratory criteria:Clotted.TAD has been notified of need of recollection.08/30/24 115 Rosy Salas Performed By: #### L 300.3900, L501.4021, L500.2500, L100.0100 ####[facility] [address] [place], [address] PROTIME Normal 11.7-14.9 [facility] Comment on above: Result Comment: This specimen has been REJECTED due to Laboratory criteria:Clotted.TAD has been notified of need of recollection.08/30/24 115 Rosy Salas Performed By: #### L 300.3900, L501.4021, L500.2500, L100.0100 ####[facility] [address] [place], [address] Prothrombin timeOrdered By: Ayaz Hinton on 08-30-2024 PT Coag (PPP) [Time] 13.2 s 11.7-14.9 [facility] Prothrombin time 13.2 SECONDS 11.7-14.[address] [facility] RBC Auto (Bld) [#/Vol]Ordere d By: Ayaz Hinton on 08-30-2024 Automated blood erythrocyte count 4.14 M/mm3 Low 4.2-5.4 [facility] STROKE Brain/Head without Co nton 08-30-2024 STROKE Brain/Head without Cont Normal [facility] STROKE CTA Head AND Neck W/C onon 08-30-2024 STROKE CTA Head AND Neck W/Con Normal [facility] Sodium levelOrdered By: Marquise Hinton on 08-30-2024 Sodium level 136 mmol/L 133-145 [facility] Specific gravity (U) [Rel de nsity]Ordered By: Ayaz Hinton on 08-30-2024 Urine specific gravity measurement 1.010 1.002-1.030 [facility] Squamous epithelial cells de tection in urine sediment by light microscopyOrdered By: Ayaz Hinton on 08-30-2024 Epithelial cells.squamous LM Ql (Urine sed) 0-5 SEEN /hpf 5-10 [facility] TSH DL <= 0.005 mIU/L QnOrde red By: Layla Craig on 08-30-2024 TSH Qn 0.881 uIU/mL 0.300-4.200 [facility] Thyroid Stim Hormone (TSH)on 08-30-2024 TSH 0.881 uIU/mL Normal 0.300-4.200 [facility] Comment on above: Performed By: #### L 501.9520, L503.5510, L503.0106 ####[facility] [address] [place], [place], [id number] Total carbon dioxide measure mentOrdered By: Layla Craig on 08-30-2024 CO2 [Moles/Vol] 37 mmol/L [facility] Troponin T.cardiac High sens itivity method [Mass/Vol]Ordered By: Ayaz Hinton on 08-30-2024 Troponin T.cardiac [Mass/volume] in Serum or Plasma by High sensitivity method 26 ng/L High <14 [facility] Troponin T.cardiac [Mass/vol ume] in Serum or Plasma by High sensitivity methodOrdered By: Ayaz Hinton on 08-30-2024 Troponin T.cardiac High sensitivity method [Mass/Vol] 38 ng/L High <14 [facility] Troponin T.cardiac High sensitivity method [Mass/Vol] 37 ng/L High <14 [facility] Troponin T.cardiac High sensitivity method [Mass/Vol] 26 ng/L High <14 [facility] Unidentified crystals LM.HPF (Urine sed) [#/Area]Ordered By: Ayaz Hinton on 08-30-2024 Urine sediment unidentified crystal count by microscopy (number/high powered field) See comment None Seen [facility] Urea nitrogen [Mass/Vol]Orde red By: Ayaz Hinton on 08-30-2024 Serum or plasma urea nitrogen measurement (mass/volume) 31 mg/dL High 4-19 [facility] Urinalysis, Completeon 08-30 BACTERIA 1+ /hpf Normal None Seen [facility] Comment on above: Order Comment: MARV CTOR TO SPECIFY Performed By: #### L 400.0001 ####[facility] [address] [place], [address] CRYSTAL,OTHER Normal None Seen [facility] Comment on above: Order Comment: MARV CTOR TO SPECIFY Result Comment: 2+ S TARCH CRYSTALS Performed By: #### L 400.0001 ####[facility] [address] [place], [place], [address] EPI,SQUAMOUS 0-5 SEEN Normal 5-10 [facility] Comment on above: Order Comment: MARV CTOR TO SPECIFY Performed By: #### L 400.0001 ####[facility] [address] [place], [place], [address] Mucus Ql (Urine sed) 1+ /hpf Normal [facility] Comment on above: Order Comment: MARV CTOR TO SPECIFY Performed By: #### L 400.0001 ####[facility] [address] [place], [address] WBC 0-5 SEEN Normal 0-5 [facility] Comment on above: Order Comment: MARV CTOR TO SPECIFY Performed By: #### L 400.0001 ####[facility] [address] [place], [address] RBC 0 SEEN Normal 0-5 [facility] Comment on above: Order Comment: MARV CTOR TO SPECIFY Performed By: #### L 400.0001 ####[facility] [address] [facility] [address] Urine Drug Screen (VISTA)on 08-30-2024 AMPHETAMINES Normal <1000 ng/mL [facility] Comment on above: Result Comment: BOBBI ENT DISCHARGED. Performed By: #### L 505.5000 ####[facility] [address] [place] [address] BARBITIURATES Normal < 200 ng/mL [facility] Comment on above: Result Comment: BOBBI ENT DISCHARGED. Performed By: #### L 505.5000 ####[facility] [address] [place] [address] BENZODIAZIPINE Normal < 200 ng/mL [facility] Comment on above: Result Comment: BOBBI ENT DISCHARGED. Performed By: #### L 505.5000 ####[facility] [address] [place] [address] BUP Ur Drug Scr Normal < 200 ng/mL [facility] Comment on above: Result Comment: BOBBI ENT DISCHARGED. Performed By: #### L 505.5000 ####[facility] [address] [place] [address] COCAINE Normal < 300 ng/mL [facility] Comment on above: Result Comment: BOBBI ENT DISCHARGED. Performed By: #### L 505.5000 ####[facility] [address] [place] [address] Fentanyl Normal [facility] Comment on above: Result Comment: BOBBI ENT DISCHARGED. Performed By: #### L 505.5000 ####[facility] [address] [place] [address] METHADONE Normal < 300 ng/mL [facility] Comment on above: Result Comment: BOBBI ENT DISCHARGED. Performed By: #### L 505.5000 ####[facility] [address] [place] [address] OPIATES Normal < 300 ng/mL [facility] Comment on above: Result Comment: BOBBI ENT DISCHARGED. Performed By: #### L 505.5000 ####[facility] [address] [place] [address] OXYCODONE Normal < 100 ng/mL [facility] Comment on above: Result Comment: BOBBI ENT DISCHARGED. Performed By: #### L 505.5000 ####[facility] [address] [place] [address] PCP Normal < 25 ng/mL [facility] Comment on above: Result Comment: BOBBI ENT DISCHARGED. Performed By: #### L 505.5000 ####[facility] [address] [place] [address] THC Normal < 50 ng/mL [facility] Comment on above: Result Comment: BOBBI ENT DISCHARGED. Performed By: #### L 505.5000 ####[facility] [address] [place] [address] Urine blood detectionOrdered By: Ayaz Hinton on 08-30-2024 Urine blood detection 10 /ul High Negative [facility] Urine clarityOrdered By: Kota Hinton on 08-30-2024 Clarity (U) Cloudy Clear [facility] Urine color determinationOrd ered By: Ayaz Hinton on 08-30-2024 Color (U) Yellow Yellow [facility] Urine glucose detectionOrder ed By: Ayaz Hinton on 08-30-2024 Glucose Ql (U) Normal mg/dl Normal [facility] Urine glucose detection Normal mg/dl Normal [facility] Urine leukocyte esterase det ection by dipstickOrdered By: Ayaz Hinton on 08-30-2024 Leukocyte esterase Test strip Ql (U) 100 /ul High Negative [facility] Urine pHOrdered By: Ayaz amaro on 08-30-2024 pH (U) 8.0 [pH] 5.0 - 8.0 [facility] Urine sediment bacteria coun t by microscopy (number/high power field)Ordered By: Ayaz Hinton on 08-30-2024 Bacteria LM.HPF (Urine sed) [#/Area] 1 /[HPF] None Seen [facility] Urine sediment bacteria count by microscopy (number/high power field) 1+ /hpf [facility] Urine sediment unidentified crystal count by microscopy (number/high powered field)Ordered By: Ayaz Hinton on 08-30-2024 Unidentified crystals LM.HPF (Urine sed) [#/Area] See comment None Seen [facility] Urine specific gravity measu rementOrdered By: Ayaz Hinton on 08-30-2024 Specific gravity (U) [Rel density] 1.010 1.002-1.030 [facility] Urine total bilirubin detect ion by test stripOrdered By: Ayaz Hinton on 08-30-2024 Urine total bilirubin detection by test strip Negative Negative [facility] Urine urobilinogen measureme ntOrdered By: Ayaz Hinton on 08-30-2024 Urobilinogen Ql (U) Normal mg/dl Normal [facility] Venous Blood Gason 5 Blood Gas Type ASHER Normal [facility] Comment on above: Performed By: #### L 9000.0810 ####[facility] [address] [place], [place], [id number]) CO2 [Moles/Vol] 31 mmol/L Normal 23-33 [facility] Comment on above: Performed By: #### L 9000.0810 ####[facility] [address] [place], [address] HCO3 (Bld) [Moles/Vol] 30 mmol/L High 22-26 [facility] Comment on above: Performed By: #### L 9000.0810 ####[facility] [address] [place], [address] O2 Delivery Dev Not entered [facility] Comment on above: Performed By: #### L 9000.0810 ####[facility] [address] [place], [address] Read Back By Yes [facility] Comment on above: Performed By: #### L 9000.0810 ####[facility] [address] [place], [address] Results To craig [facility] Comment on above: Performed By: #### L 9000.0810 ####[facility] [address] [place], [address] SITE Not entered [facility] Comment on above: Performed By: #### L 9000.0810 ####[facility] [address] [place], [address] Time Given 16:51:18 [facility] Comment on above: Performed By: #### L 9000.0810 ####[facility] [address] [place], [address] VBG BE 10 mmol/L High -1.0-3.5 [facility] Comment on above: Performed By: #### L 9000.0810 ####[facility] [address] [place], [address] VBG pCO2 22.7 mmHg Low 41-51 [facility] Comment on above: Performed By: #### L 9000.0810 ####[facility] [address] [place], [address] VBG pH 7.73 Invalid Interpretation Code 7.32-7.42 [facility] Comment on above: Performed By: #### L 9000.0810 ####[facility] [address] [place], [place], [address] VBG PO2 170 mmHg High 25-40 [facility] Comment on above: Performed By: #### L 9000.0810 ####[facility] [address] [place], [place], [address] VBG SO2 100 High 50-70 [facility] Comment on above: Performed By: #### L 9000.0810 ####[facility] [address] [place], [place], [address] Venous blood ammonia measure mentOrdered By: Layla Craig on 08-30-2024 Ammonia (P) [Moles/Vol] 14.8 umol/L 11-51 [facility] Venous blood base excess fran surementOrdered By: Layla Craig on 08-30-2024 Base excess Calc (BldV) [Moles/Vol] 10 mmol/L High -1.0-3.5 [facility] Venous blood bicarbonate fran surementOrdered By: Layla Craig on 08-30-2024 HCO3 (Bld) [Moles/Vol] 30 mmol/L High 22-26 [facility] Venous blood pH measurementO rdered By: Layla Craig on 08-30-2024 pH (BldV) 7.73 [pH] High 7.32-7.42 [facility] Venous blood partial pressur e of carbon dioxide measurementOrdered By: Layla Craig on 08-30-2024 CO2 (BldV) [Partial pressure] 22.7 mm[Hg] Low 41-51 [facility] Venous blood partial pressur e of oxygen measurementOrdered By: Layla Craig on 08-30-2024 Oxygen (BldV) [Partial pressure] 170 mm[Hg] High 25-40 [facility] Vitamin B12on 08-30-2024 Cobalamin (Vitamin B12) [Mass/Vol] 338 pg/mL Normal 180-914 [facility] Comment on above: Performed By: #### L 501.9520, L503.5510, L503.0106 ####[facility] [address] [place], [address] Vitamin B12 ser/plasOrdered By: Layla Craig on 08-30-2024 Cobalamin (Vitamin B12) [Mass/Vol] 338 pg/mL 180-914 [facility] White blood cell (WBC) count Ordered By: Ayaz Hinton on 08-30-2024 White blood cell (WBC) count 7.5 K/mm3 4.4-11.0 [facility] White blood cell countOrdere d By: Ayaz Hinton on 08-30-2024 White blood cell count 0-5 SEEN /hpf 0-5 [facility] White blood cell count 0-5 SEEN /hpf 5-10 [facility] aPTT Coag (PPP) [Time]Ordere d By: Ayaz Hinton on 08-30-2024 Activated partial thromboplastin time (aPTT) in platelet poor plasma by coagulation a 32.4 Seconds 24.1-36.2 [facility] pH (U)Ordered By: Ayaz garcia on 08-30-2024 Urine pH 8.0 5.0 - 8.0 [facility] Basic Metabolic Profile (BMP )on 07-29-2024 BUN Normal 7-18 [facility] Comment on above: Result Comment: Canc elled via OM: Order cancelled - Patient discharged Performed By: #### L 100.0100, L500.2500 ####[facility] [address] [place], [address] BUN/CRE Normal 10-20 [facility] Comment on above: Result Comment: Canc elled via OM: Order cancelled - Patient discharged Performed By: #### L 100.0100, L500.2500 ####[facility] [address] [place], [address] Calcium Normal 8.5-10.1 [facility] Comment on above: Result Comment: Canc elled via OM: Order cancelled - Patient discharged Performed By: #### L 100.0100, L500.2500 ####[facility] [address] [place], [address] CL Normal 98-107 [facility] Comment on above: Result Comment: Canc elled via OM: Order cancelled - Patient discharged Performed By: #### L 100.0100, L500.2500 ####[facility] [address] [place], [address] CO2 Normal 21.0-32.0 [facility] Comment on above: Result Comment: Canc elled via OM: Order cancelled - Patient discharged Performed By: #### L 100.0100, L500.2500 ####[facility] [address] [place], [address] CREAT,SERUM Normal 0.55-1.02 [facility] Comment on above: Result Comment: Canc elled via OM: Order cancelled - Patient discharged Performed By: #### L 100.0100, L500.2500 ####[facility] [address] [place], [address] eGFR Normal >60 [facility] Comment on above: Result Comment: Canc elled via OM: Order cancelled - Patient discharged Performed By: #### L 100.0100, L500.2500 ####[facility] [address] [place], [address] EST GFR - AA Normal >60 [facility] Comment on above: Result Comment: Canc elled via OM: Order cancelled - Patient discharged Performed By: #### L 100.0100, L500.2500 ####[facility] [address] [place], [address] GAP Normal 5-15 [facility] Comment on above: Result Comment: Canc elled via OM: Order cancelled - Patient discharged Performed By: #### L 100.0100, L500.2500 ####[facility] [address] [place], [address] GLU Normal 74-106 [facility] Comment on above: Result Comment: Canc elled via OM: Order cancelled - Patient discharged Performed By: #### L 100.0100, L500.2500 ####[facility] [address] [place], [address] Potassium Normal 3.5-5.1 [facility] Comment on above: Result Comment: Canc elled via OM: Order cancelled - Patient discharged Performed By: #### L 100.0100, L500.2500 ####[facility] [address] [place], [address] Basic Metabolic Profile (BMP) Normal 136-145 [facility] Comment on above: Result Comment: Canc elled via OM: Order cancelled - Patient discharged Performed By: #### L 100.0100, L500.2500 ####[facility] [address] [place], [address] CBC W/Diff, Automatedon 03-2 0-2024 Absolute Neut Normal 2.0-7.7 [facility] Comment on above: Result Comment: Canc elled via OM: Order cancelled - Patient discharged Performed By: #### L 100.0100, L500.2500 ####[facility] [address] [place], [address] HCT Normal 37-47 [facility] Comment on above: Result Comment: Canc elled via OM: Order cancelled - Patient discharged Performed By: #### L 100.0100, L500.2500 ####[facility] [address] [place], [address] HGB Normal 12.0-15.0 [facility] Comment on above: Result Comment: Canc elled via OM: Order cancelled - Patient discharged Performed By: #### L 100.0100, L500.2500 ####[facility] [address] [place], [address] MCH Normal 27.0-32.0 [facility] Comment on above: Result Comment: Canc elled via OM: Order cancelled - Patient discharged Performed By: #### L 100.0100, L500.2500 ####[facility] [address] [place], [address] MCHC Normal 32-36 [facility] Comment on above: Result Comment: Canc elled via OM: Order cancelled - Patient discharged Performed By: #### L 100.0100, L500.2500 ####[facility] [address] [place], [address] MCV Normal 81-99 [facility] Comment on above: Result Comment: Canc elled via OM: Order cancelled - Patient discharged Performed By: #### L 100.0100, L500.2500 ####[facility] [address] [place], [address] NEUT% Normal 47-70 [facility] Comment on above: Result Comment: Canc elled via OM: Order cancelled - Patient discharged Performed By: #### L 100.0100, L500.2500 ####[facility] [address] [place], [address] PLT Normal 150-450 [facility] Comment on above: Result Comment: Canc elled via OM: Order cancelled - Patient discharged Performed By: #### L 100.0100, L500.2500 ####[facility] [address] [place], [address] RBC Normal 4.2-5.4 [facility] Comment on above: Result Comment: Canc elled via OM: Order cancelled - Patient discharged Performed By: #### L 100.0100, L500.2500 ####[facility] [address] [place], [address] RDW CV Normal 11.6-14.6 [facility] Comment on above: Result Comment: Canc elled via OM: Order cancelled - Patient discharged Performed By: #### L 100.0100, L500.2500 ####[facility] [address] [place], [address] RDW SD Normal 35.1-43.9 [facility] Comment on above: Result Comment: Canc elled via OM: Order cancelled - Patient discharged Performed By: #### L 100.0100, L500.2500 ####[facility] [address] [place], [address] WBC Normal 4.4-11.0 [facility] Comment on above: Result Comment: Canc elled via OM: Order cancelled - Patient discharged Performed By: #### L 100.0100, L500.2500 ####[facility] [address] [place], [address] 12 Lead EKG performed by BMS on 07-26-2024 12 Lead EKG performed by BMS Normal [facility] Cardiology Visit Reporton Cardiology Visit Report Normal [facility] Absolute lymphocyte countOrd ered By: Aleks Marshall on 07-22-2024 Lymphocytes Auto (Unsp spec) [#/Vol] 1.46 10*3/uL 0.83-4.51 [facility] Absolute neutrophil countOrd ered By: Aleks Marshall on 07-22-2024 Absolute neutrophil count 1.6 X10^3/uL Low 2.0-7.7 [facility] Anion gap [Moles/Vol]Ordered By: Aleks Marshall on 07-22-2024 Anion gap in Serum or Plasma 12 09-23 [facility] Anion gap in Serum or Plasma Ordered By: Aleks Marshall on 07-22-2024 Anion gap [Moles/Vol] 12 mmol/L 09-23 [facility] Automated lymphocyte count a s percentage of total leukocytesOrdered By: Aleks Marshall on 07-22-2024 Lymphocytes/100 WBC Auto (Unsp spec) 35.4 % [facility] BUN/creatinine ratioOrdered By: Aleks Marshall on 07-22-2024 Urea nitrogen/Creatinine [Mass ratio] 37.8 mg/mg High 10- [facility] BUN/creatinine ratio 37.8 RATIO High 10-20 [facility] Basic Metabolic Profile (BMP )on 07-22-2024 EST GFR - AA TNP Normal >60 [facility] Comment on above: Performed By: #### L 100.0100, L500.2500 ####[facility] [address] [place], [address] Basophil percentageOrdered B y: Aleks Marshall on 07-22-2024 Basophils/100 WBC (Bld) 0.5 % 0-[address] [facility] Basophil percentage 0.5 % 0-[address] [facility] CBC W/Diff, Automatedon 07-10 Absolute Lymph 1.46 X10 3/uL Normal 0.83-4.51 [facility] Comment on above: Performed By: #### L 100.0100, L500.2500 ####[facility] [address] [place], [address] Absolute Neut 1.6 X10 3/uL Low 2.0-7.7 [facility] Comment on above: Performed By: #### L 100.0100, L500.2500 ####[facility] [address] [place], [address] Basophils/100 WBC (Bld) 0.5 % Normal 0-[address] [facility] Comment on above: Performed By: #### L 100.0100, L500.2500 ####[facility] [address] [place], [address] Eosinophils/100 WBC (Bld) 9.0 % High 0-5 [facility] Comment on above: Performed By: #### L 100.0100, L500.2500 ####[facility] [address] [place], [address] Erythrocyte distribution width (RBC) [Ratio] 14.8 % High 11.6-14.6 [facility] Comment on above: Performed By: #### L 100.0100, L500.2500 ####[facility] [address] [place], [address] Hematocrit (Bld) [Volume fraction] 26.5 % Low 37-47 [facility] Comment on above: Performed By: #### L 100.0100, L500.2500 ####[facility] [address] [place], [address] Hemoglobin (Bld) [Mass/Vol] 8.4 g/dL Low 12.0-15.0 [facility] Comment on above: Performed By: #### L 100.0100, L500.2500 ####[facility] [address] [place], [address] IG% 0.500 Normal 0.0-0.9 [facility] Comment on above: Result Comment: IG% - Immature Granulocytes (promyelocytes, myelocytes andmetamyelocytes) > 1% indicates that a LEFT SHIFT is Present. Performed By: #### L 100.0100, L500.2500 ####[facility] [address] [place], [address] Lymphocytes/100 WBC (Bld) 35.4 % Normal 19-41 [facility] Comment on above: Performed By: #### L 100.0100, L500.2500 ####[facility] [address] [place], [address] MCH (RBC) [Entitic mass] 30.3 pg Normal 27.0-32.0 [facility] Comment on above: Performed By: #### L 100.0100, L500.2500 ####[facility] [address] [place], [address] MCHC (RBC) [Mass/Vol] 31.7 g/dL Low 32-36 [facility] Comment on above: Performed By: #### L 100.0100, L500.2500 ####[facility] [address] [place], [address] MCV (RBC) [Entitic vol] 95.7 fL Normal 81-[address] [facility] Comment on above: Performed By: #### L 100.0100, L500.2500 ####[facility] [address] [place], [address] Monocytes/100 WBC (Bld) 15.3 % High 0-[address] [facility] Comment on above: Performed By: #### L 100.0100, L500.2500 ####[facility] [address] [place], [address] Neutrophils/100 WBC (Bld) 39.3 % Low 47-70 [facility] Comment on above: Performed By: #### L 100.0100, L500.2500 ####[facility] [address] [place], [address] Nucleated RBC (Bld) [#/Vol] 0 10*3/uL Normal 0-5 [facility] Comment on above: Performed By: #### L 100.0100, L500.2500 ####[facility] [address] [place], [address] Platelet mean volume (Bld) [Entitic vol] 9.8 fL Normal 6.2-12.0 [facility] Comment on above: Performed By: #### L 100.0100, L500.2500 ####[facility] [address] [place], [address] Platelets (Bld) [#/Vol] 210 10*3/uL Normal 150-450 [facility] Comment on above: Performed By: #### L 100.0100, L500.2500 ####[facility] [address] [place], [address] RBC (Bld) [#/Vol] 2.77 10*6/uL Low 4.2-5.[address] [facility] Comment on above: Performed By: #### L 100.0100, L500.2500 ####[facility] [address] [place], [address] RDW SD 52.6 fl High 35.1-43.9 [facility] Comment on above: Performed By: #### L 100.0100, L500.2500 ####[facility] [address] [place], [address] WBC (Bld) [#/Vol] 4.1 10*3/uL Low 4.4-11.[address] [facility] Comment on above: Performed By: #### L 100.0100, L500.2500 ####[facility] [address] [place], [address] Calcium [Mass/Vol]Ordered By : Aleks Marshall on 07-22-2024 Serum or plasma calcium measurement (mass/volume) 9.3 mg/dL 7.6-11.0 [facility] Carbon dioxide, total [Moles /volume] in Central venous bloodOrdered By: Aleks Marshall on 07-22-2024 CO2 [Moles/Vol] 25.1 mmol/L 21.0-32.0 [facility] Carbon dioxide, total [Moles/volume] in Central venous blood 25.1 mmol/L 21.0-32.0 [facility] Chloride assayOrdered By: Yobany Marshall on 07-22-2024 Chloride [Moles/Vol] 101 mmol/L 98-108 [facility] Chloride assay 101 mmol/L 98-108 [facility] Creatinine [Mass/Vol]Ordered By: Aleks Marshall on 07-22-2024 Serum creatinine measurement (mass/volume) 0.76 mg/dL 0.70-1.20 [facility] Eosinophil percentageOrdered By: Aleks Marshall on 07-22-2024 Eosinophils/100 WBC (Bld) 9.0 % High 0-5 [facility] Eosinophil percentage 9.0 % High 0-5 [facility] Erythrocyte distribution wid th (RBC) [Ratio]Ordered By: Aleks Marshall on 07-22-2024 Erythrocyte distribution width ratio 14.8 % High 11.6-14.6 [facility] Erythrocyte distribution wid th ratioOrdered By: Aleks Marshall 07-22-2024 Erythrocyte distribution width (RBC) [Ratio] 14.8 % High 11.6-14.6 [facility] Erythrocyte distribution wid th standard deviationOrdered By: Aleks Marshall on 07-22-2024 Erythrocyte distribution width (RBC) [Ratio] 52.6 fl High 35.1-43.9 [facility] Erythrocyte distribution width standard deviation 52.6 fl High 35.1-43.9 [facility] Estimated glomerular filtrat ion rate (GFR) AmericanOrdered By: Aleks Marshall on 07-22-2024 Estimated glomerular filtration rate (GFR) [facility] Estimation of creatinine mary ellen aranceOrdered By: Aleks Marshall 07-22-2024 Estimation of creatinine clearance 44.34 ml/min Low 50-250 [facility] GFR/1.73 sq M.predicted jane g non-blacks MDRD (S/P/Bld) [Vol rate/Area]Ordered By: Aleks Marshall 07-22-2024 Glomerular filtration rate (GFR) estimation/1.73 sq m using serum, plasma, or whole b 75 >60 [facility] Glomerular filtration rate ( GFR) estimation/1.73 sq m using serum, plasma, or whole bOrdered By: Aleks Marshall 07-22-2024 GFR/1.73 sq M.predicted among non-blacks MDRD (S/P/Bld) [Vol rate/Area] 75 mL/min/{1.73_m2} >60 [facility] Glucose [Mass/Vol]Ordered By : Aleks Marshall 07-22-2024 Serum glucose measurement (mass/volume) 86 mg/dL 70-99 [facility] Hematocrit Auto (Bld) [Volum e fraction]Ordered By: Aleks Marshall 07-22-2024 Hematocrit (Bld) [Volume fraction] 26.5 % Low 37-47 [facility] Automated blood hematocrit (percentage) 26.5 % Low 37-47 [facility] Hemoglobin measurementOrdere d By: Aleks Marshall 07-22-2024 Hemoglobin (Bld) [Mass/Vol] 8.4 g/dL Low 12.0-15.0 [facility] Hemoglobin measurement 8.4 g/dL Low 12.0-15.0 [facility] Immature granulocytes/100 WB C Auto (Bld)Ordered By: Aleks Marshall on 07-22-2024 Immature granulocytes/100 WBC (Bld) 0.500 % 0.0-0.9 [facility] Automated immature granulocyte percentage 0.500 % 0.0-0.9 [facility] Lymphocytes Auto (Unsp spec) [#/Vol]Ordered By: Aleks Marshall on 07-22-2024 Absolute lymphocyte count 1.46 X10^3/uL 0.83-4.51 [facility] Lymphocytes/100 WBC Auto (Un sp spec)Ordered By: Aleks Marshall on 07-22-2024 Automated lymphocyte count as percentage of total leukocytes 35.4 % 19-41 [facility] MCV (RBC) [Entitic vol]Order ed By: Aleks Marshall on 07-22-2024 MCV (mean corpuscular volume) determination 95.7 fL 81-99 [facility] MCV (mean corpuscular volume ) determinationOrdered By: Aleks Marshall on 07-22-2024 MCV (RBC) [Entitic vol] 95.7 fL 81-99 [facility] Mean corpuscular hemoglobin (MCH) determinationOrdered By: Alkes Marshall on 07-22-2024 MCH (RBC) [Entitic mass] 30.3 pg 27.0-32.0 [facility] Mean corpuscular hemoglobin (MCH) determination 30.3 pg 27.0-32.0 [facility] Mean corpuscular hemoglobin concentration (MCHC) determinationOrdered By: Aleks Marshall on 07-22-2024 Mean corpuscular hemoglobin concentration (MCHC) determination 31.7 g/dL Low 32-36 [facility] Mean platelet volume determi nationOrdered By: Aleks Marshall on 07-22-2024 Mean platelet volume determination 9.8 fl 6.2-12.0 [facility] Monocyte percentageOrdered B y: Aleks Marshall on 07-22-2024 Monocytes/100 WBC (Bld) 15.3 % High 0-[address] [facility] Monocyte percentage 15.3 % High 0-[address] [facility] Neutrophil percentageOrdered By: Aleks Marshall on 07-22-2024 Neutrophils/100 WBC (Bld) 39.3 % Low 47-70 [facility] Neutrophil percentage 39.3 % Low 47-70 [facility] Nucleated red blood cell per centageOrdered By: Aleks Marshall on 07-22-2024 Nucleated red blood cell percentage 0 % 0-5 [facility] Platelet countOrdered By: Yobany Marshall on 07-22-2024 Platelets (Bld) [#/Vol] 210 10*3/uL 150-450 [facility] Platelet count 210 K/mm3 150-450 [facility] Potassium (Unsp spec) [Mass/ Vol]Ordered By: Aleks Marshall on 07-22-2024 Potassium measurement (mass/volume) 4.2 mmol/L 3.3-5.1 [facility] Potassium measurement (mass/ volume)Ordered By: Aleks Marshall on 07-22-2024 Potassium (Unsp spec) [Mass/Vol] 4.2 mmol/L 3.3-5.1 [facility] RBC Auto (Bld) [#/Vol]Ordere d By: Aleks Marshall on 07-22-2024 RBC (Bld) [#/Vol] 2.77 10*6/uL Low 4.2-5.[address] [facility] Automated blood erythrocyte count 2.77 M/mm3 Low 4.2-5.4 [facility] Serum creatinine measurement (mass/volume)Ordered By: Aleks Marshall 07-22-2024 Creatinine [Mass/Vol] 0.76 mg/dL 0.70-1.20 [facility] Serum glucose measurement (m ass/volume)Ordered By: Aleks Marshall on 07-22-2024 Glucose [Mass/Vol] 86 mg/dL 70-[address] [facility] Serum or plasma calcium manuel urement (mass/volume)Ordered By: Aleks Marshall 07-22-2024 Calcium [Mass/Vol] 9.3 mg/dL 7.6-11.[address] [facility] Serum or plasma urea nitroge n measurement (mass/volume)Ordered By: Aleks Marshall on 07-22-2024 Urea nitrogen [Mass/Vol] 29 mg/dL High 4-19 [facility] Sodium levelOrdered By: Aleks Marshall 07-22-2024 Sodium [Moles/Vol] 138 mmol/L 133-[address] [facility] Sodium level 138 mmol/L 133-145 [facility] Urea nitrogen [Mass/Vol]Orde red By: Aleks Marshall on 07-22-2024 Serum or plasma urea nitrogen measurement (mass/volume) 29 mg/dL High 4-19 [facility] White blood cell (WBC) count Ordered By: Aleks Marshall on 07-22-2024 WBC (Bld) [#/Vol] 4.1 10*3/uL Low 4.4-11.[address] [facility] White blood cell (WBC) count 4.1 K/mm3 Low 4.4-11.0 [facility] Chest PA and Lateralon 07-20 Chest PA and Lateral Normal [facility] HH, Hemoglobin AND Hematocri ton 07-19-2024 Hematocrit (Bld) [Volume fraction] 26.4 % Low 37-47 [facility] Comment on above: Performed By: #### L 100.0600 ####[facility] [address] [place], [address] Hemoglobin (Bld) [Mass/Vol] 8.4 g/dL Low 12.0-15.0 [facility] Comment on above: Performed By: #### L 100.0600 ####[facility] [address] [place], [address] RESPIRATORY PANEL MOLECULARo n 07-18-2024 RP PANEL Normal [facility] Comment on above: Performed By: #### M 100.638 ####[facility] [address] [place], [address] COVID 19 AG RAPID (RN EMANUEL T)on 07-17-2024 SARS-CoV-2 (COVID-19) RNA RHYS+probe Ql (Unsp spec) Normal [facility] Comment on above: Performed By: #### M 100.505 ####[facility] [address] [place], [address] COVID-19 virus antigen assay Ordered By: Aleks Marshall on 07-17-2024 SARS-CoV-2 (COVID-19) Ag IA.rapid Ql (Resp) [facility] Respiratory pathogens detect ion panel by molecular detection methodOrdered By: Aleks Marshall on 07-17-2024 Respiratory pathogens DNA and RNA panel RHYS+probe (Resp) [facility] HH, Hemoglobin AND Hematocri ton 07-16-2024 Hematocrit (Bld) [Volume fraction] 27.1 % Low 37-47 [facility] Comment on above: Performed By: #### L 100.0600 ####[facility] [address] [place], [address] Hemoglobin (Bld) [Mass/Vol] 8.6 g/dL Low 12.0-15.0 [facility] Comment on above: Performed By: #### L 100.0600 ####[facility] [address] [place], [address] Basic Metabolic Profile (BMP )on 07-15-2024 EST GFR - AA TNP Normal >60 [facility] Comment on above: Performed By: #### L 500.2500, L100.0100 ####[facility] [address] [place], [address] CBC W/Diff, Automatedon 03-0 Absolute Lymph 1.56 X10 3/uL Normal 0.83-4.51 [facility] Comment on above: Performed By: #### L 500.2500, L100.0100 ####[facility] [address] [place], [address] Absolute Neut 2.9 X10 3/uL Normal 2.0-7.7 [facility] Comment on above: Performed By: #### L 500.2500, L100.0100 ####[facility] [address] [place], [address] Basophils/100 WBC (Bld) 1.1 % High 0-[address] [facility] Comment on above: Performed By: #### L 500.2500, L100.0100 ####[facility] [address] [place], [address] Eosinophils/100 WBC (Bld) 4.7 % Normal 0-5 [facility] Comment on above: Performed By: #### L 500.2500, L100.0100 ####[facility] [address] [place], [address] Erythrocyte distribution width (RBC) [Ratio] 15.1 % High 11.6-14.6 [facility] Comment on above: Performed By: #### L 500.2500, L100.0100 ####[facility] [address] [place], [address] Hematocrit (Bld) [Volume fraction] 26.9 % Low 37-47 [facility] Comment on above: Performed By: #### L 500.2500, L100.0100 ####[facility] [address] [place], [address] Hemoglobin (Bld) [Mass/Vol] 8.4 g/dL Low 12.0-15.0 [facility] Comment on above: Performed By: #### L 500.2500, L100.0100 ####[facility] [address] [place], [address] IG% 0.900 Normal 0.0-0.9 [facility] Comment on above: Result Comment: IG% - Immature Granulocytes (promyelocytes, myelocytes andmetamyelocytes) > 1% indicates that a LEFT SHIFT is Present. Performed By: #### L 500.2500, L100.0100 ####[facility] [address] [place], [address] Lymphocytes/100 WBC (Bld) 28.5 % Normal 19-41 [facility] Comment on above: Performed By: #### L 500.2500, L100.0100 ####[facility] [address] [place], [address] MCH (RBC) [Entitic mass] 30.0 pg Normal 27.0-32.0 [facility] Comment on above: Performed By: #### L 500.2500, L100.0100 ####[facility] [address] [place], [address] MCHC (RBC) [Mass/Vol] 31.2 g/dL Low 32-36 [facility] Comment on above: Performed By: #### L 500.2500, L100.0100 ####[facility] [address] [place], [address] MCV (RBC) [Entitic vol] 96.1 fL Normal 81-99 [facility] Comment on above: Performed By: #### L 500.2500, L100.0100 ####[facility] [address] [place], [address] Monocytes/100 WBC (Bld) 11.9 % High 0-10 [facility] Comment on above: Performed By: #### L 500.2500, L100.0100 ####[facility] [address] [place], [address] Neutrophils/100 WBC (Bld) 52.9 % Normal 47-70 [facility] Comment on above: Performed By: #### L 500.2500, L100.0100 ####[facility] [address] [place], [address] Nucleated RBC (Bld) [#/Vol] 0 10*3/uL Normal 0-5 [facility] Comment on above: Performed By: #### L 500.2500, L100.0100 ####[facility] [address] [place], [address] Platelet mean volume (Bld) [Entitic vol] 9.3 fL Normal 6.2-12.0 [facility] Comment on above: Performed By: #### L 500.2500, L100.0100 ####[facility] [address] [place], [address] Platelets (Bld) [#/Vol] 298 10*3/uL Normal 150-450 [facility] Comment on above: Performed By: #### L 500.2500, L100.0100 ####[facility] [address] [place], [address] RBC (Bld) [#/Vol] 2.80 10*6/uL Low 4.2-5.[address] [facility] Comment on above: Performed By: #### L 500.2500, L100.0100 ####[facility] [address] [place], [address] RDW SD 53.6 fl High 35.1-43.9 [facility] Comment on above: Performed By: #### L 500.2500, L100.0100 ####[facility] [address] [place], [address] WBC (Bld) [#/Vol] 5.5 10*3/uL Normal 4.4-11.[address] [facility] Comment on above: Performed By: #### L 500.2500, L100.0100 ####[facility] [address] [place], [address] Stool Occult Blood iFOBon STOB Normal [facility] Comment on above: Performed By: #### M 100.7900 ####[facility] [address] [place], [address] Stool gastrointestinal hemog lobin detection by immunologic methodOrdered By: Aleks Marshall on 07-15-2024 Lower GI hemoglobin IA Ql (Stl) [facility] Basic Metabolic Profile (BMP )on 07-12-2024 BUN Normal 7-18 [facility] Comment on above: Result Comment: Canc elled via OM: Order cancelled - Patient discharged Performed By: #### L 500.2500, L100.0100 ####[facility] [address] [place], [address] BUN/CRE Normal 10-20 [facility] Comment on above: Result Comment: Canc elled via OM: Order cancelled - Patient discharged Performed By: #### L 500.2500, L100.0100 ####[facility] [address] [place], [address] CA,Total Normal 8.5-10.1 [facility] Comment on above: Result Comment: Canc elled via OM: Order cancelled - Patient discharged Performed By: #### L 500.2500, L100.0100 ####[facility] [address] [place], [address] CL Normal 98-107 [facility] Comment on above: Result Comment: Canc elled via OM: Order cancelled - Patient discharged Performed By: #### L 500.2500, L100.0100 ####[facility] [address] [place], [address] CO2 Normal 21.0-32.0 [facility] Comment on above: Result Comment: Canc elled via OM: Order cancelled - Patient discharged Performed By: #### L 500.2500, L100.0100 ####[facility] [address] [place], [address] CREAT,SERUM Normal 0.55-1.02 [facility] Comment on above: Result Comment: Canc elled via OM: Order cancelled - Patient discharged Performed By: #### L 500.2500, L100.0100 ####[facility] [address] [place], [address] EST GFR Normal >60 [facility] Comment on above: Result Comment: Canc elled via OM: Order cancelled - Patient discharged Performed By: #### L 500.2500, L100.0100 ####[facility] [address], [address] EST GFR - AA Normal >60 [facility] Comment on above: Result Comment: Canc elled via OM: Order cancelled - Patient discharged Performed By: #### L 500.2500, L100.0100 ####[facility] [address] [place], [address] GAP Normal 5-15 [facility] Comment on above: Result Comment: Canc elled via OM: Order cancelled - Patient discharged Performed By: #### L 500.2500, L100.0100 ####[facility] [address] [place], [address] GLU Normal 74-106 [facility] Comment on above: Result Comment: Canc elled via OM: Order cancelled - Patient discharged Performed By: #### L 500.2500, L100.0100 ####[facility] [address] [place], [address] Potassium Normal 3.5-5.1 [facility] Comment on above: Result Comment: Canc elled via OM: Order cancelled - Patient discharged Performed By: #### L 500.2500, L100.0100 ####[facility] [address] [place], [address] Basic Metabolic Profile (BMP) Normal 136-145 [facility] Comment on above: Result Comment: Canc elled via OM: Order cancelled - Patient discharged Performed By: #### L 500.2500, L100.0100 ####[facility] [address] [place], [address] CBC W/Diff, Automatedon 03-0 Absolute Neut Normal 2.0-7.7 [facility] Comment on above: Result Comment: Canc elled via OM: Order cancelled - Patient discharged Performed By: #### L 500.2500, L100.0100 ####[facility] [address] [place], [address] HCT Normal 37-47 [facility] Comment on above: Result Comment: Canc elled via OM: Order cancelled - Patient discharged Performed By: #### L 500.2500, L100.0100 ####[facility] [address] [place], [address] HGB Normal 12.0-15.0 [facility] Comment on above: Result Comment: Canc elled via OM: Order cancelled - Patient discharged Performed By: #### L 500.2500, L100.0100 ####[facility] [address] [place], [address] MCH Normal 27.0-32.0 [facility] Comment on above: Result Comment: Canc elled via OM: Order cancelled - Patient discharged Performed By: #### L 500.2500, L100.0100 ####[facility] [address] [place], [address] MCHC Normal 32-36 [facility] Comment on above: Result Comment: Canc elled via OM: Order cancelled - Patient discharged Performed By: #### L 500.2500, L100.0100 ####[facility] [address] [place], [address] MCV Normal 81-99 [facility] Comment on above: Result Comment: Canc elled via OM: Order cancelled - Patient discharged Performed By: #### L 500.2500, L100.0100 ####[facility] [address] [place], [address] NEUT% Normal 47-70 [facility] Comment on above: Result Comment: Canc elled via OM: Order cancelled - Patient discharged Performed By: #### L 500.2500, L100.0100 ####[facility] [address] [place], [address] PLT Normal 150-450 [facility] Comment on above: Result Comment: Canc elled via OM: Order cancelled - Patient discharged Performed By: #### L 500.2500, L100.0100 ####[facility] [address] [place], [address] RBC Normal 4.2-5.4 [facility] Comment on above: Result Comment: Canc elled via OM: Order cancelled - Patient discharged Performed By: #### L 500.2500, L100.0100 ####[facility] [address] [place], [address] RDW CV Normal 11.6-14.6 [facility] Comment on above: Result Comment: Canc elled via OM: Order cancelled - Patient discharged Performed By: #### L 500.2500, L100.0100 ####[facility] [address] [place], [address] RDW SD Normal 35.1-43.9 [facility] Comment on above: Result Comment: Canc elled via OM: Order cancelled - Patient discharged Performed By: #### L 500.2500, L100.0100 ####[facility] [address] [place], [address] WBC Normal 4.4-11.0 [facility] Comment on above: Result Comment: Canc elled via OM: Order cancelled - Patient discharged Performed By: #### L 500.2500, L100.0100 ####[facility] [address] [place], [address] Basic Metabolic Profile (BMP )on 07-08-2024 Calcium [Mass/Vol] 9.1 mg/dL Normal 7.6-11.[address] [facility] Comment on above: Performed By: #### L 100.0100, L500.2500 ####[facility] [address] [place], [address] Chloride [Moles/Vol] 100 mmol/L Normal 98-107 [facility] Comment on above: Performed By: #### L 100.0100, L500.2500 ####[facility] [address] [place], [address] CO2 [Moles/Vol] 26.1 mmol/L Normal 21.0-32.0 [facility] Comment on above: Performed By: #### L 100.0100, L500.2500 ####[facility] [address] [place], [address] EST GFR - AA TNP Normal >60 [facility] Comment on above: Performed By: #### L 100.0100, L500.2500 ####[facility] [address] [place], [address] GAP 11 Normal 5-15 [facility] Comment on above: Performed By: #### L 100.0100, L500.2500 ####[facility] [address] [place], [address] Potassium [Moles/Vol] 4.0 mmol/L Normal 3.5-5.1 [facility] Comment on above: Performed By: #### L 100.0100, L500.2500 ####[facility] [address] [place], [address] Sodium [Moles/Vol] 137 mmol/L Normal 136-[address] [facility] Comment on above: Performed By: #### L 100.0100, L500.2500 ####[facility] [address] [place], [address] CBC W/Diff, Automatedon -2 Absolute Lymph 1.30 X10 3/uL Normal 0.83-4.51 [facility] Comment on above: Performed By: #### L 100.0100, L500.2500 ####[facility] [address] [place], [address] Absolute Neut 3.3 X10 3/uL Normal 2.0-7.7 [facility] Comment on above: Performed By: #### L 100.0100, L500.2500 ####[facility] [address] [place], [address] Basophils/100 WBC (Bld) 1.6 % High 0-[address] [facility] Comment on above: Performed By: #### L 100.0100, L500.2500 ####[facility] [address] [place], [address] Eosinophils/100 WBC (Bld) 5.2 % High 0-5 [facility] Comment on above: Performed By: #### L 100.0100, L500.2500 ####[facility] [address] [place], [address] Erythrocyte distribution width (RBC) [Ratio] 15.2 % High 11.6-14.6 [facility] Comment on above: Performed By: #### L 100.0100, L500.2500 ####[facility] [address] [place], [address] Hematocrit (Bld) [Volume fraction] 27.6 % Low 37-47 [facility] Comment on above: Performed By: #### L 100.0100, L500.2500 ####[facility] [address] [place], [address] Hemoglobin (Bld) [Mass/Vol] 8.7 g/dL Low 12.0-15.0 [facility] Comment on above: Performed By: #### L 100.0100, L500.2500 ####[facility] [address] [place], [address] IG% 1.400 High 0.0-0.9 [facility] Comment on above: Result Comment: IG% - Immature Granulocytes (promyelocytes, myelocytes andmetamyelocytes) > 1% indicates that a LEFT SHIFT is Present. Performed By: #### L 100.0100, L500.2500 ####[facility] [address] [place], [address] Lymphocytes/100 WBC (Bld) 22.6 % Normal 19-41 [facility] Comment on above: Performed By: #### L 100.0100, L500.2500 ####[facility] [address] [place], [address] MCH (RBC) [Entitic mass] 30.2 pg Normal 27.0-32.0 [facility] Comment on above: Performed By: #### L 100.0100, L500.2500 ####[facility] [address] [place], [address] MCHC (RBC) [Mass/Vol] 31.5 g/dL Low 32-36 [facility] Comment on above: Performed By: #### L 100.0100, L500.2500 ####[facility] [address] [place], [address] MCV (RBC) [Entitic vol] 95.8 fL Normal 81-99 [facility] Comment on above: Performed By: #### L 100.0100, L500.2500 ####[facility] [address] [place], [address] Monocytes/100 WBC (Bld) 11.5 % High 0-[address] [facility] Comment on above: Performed By: #### L 100.0100, L500.2500 ####[facility] [address] [place], [address] Neutrophils/100 WBC (Bld) 57.7 % Normal 47-70 [facility] Comment on above: Performed By: #### L 100.0100, L500.2500 ####[facility] [address] [place], [address] Nucleated RBC (Bld) [#/Vol] 0 10*3/uL Normal 0-5 [facility] Comment on above: Performed By: #### L 100.0100, L500.2500 ####[facility] [address] [place], [address] Platelet mean volume (Bld) [Entitic vol] 9.4 fL Normal 6.2-12.0 [facility] Comment on above: Performed By: #### L 100.0100, L500.2500 ####[facility] [address] [place], [address] Platelets (Bld) [#/Vol] 362 10*3/uL Normal 150-450 [facility] Comment on above: Performed By: #### L 100.0100, L500.2500 ####[facility] [address] [place], [address] RBC (Bld) [#/Vol] 2.88 10*6/uL Low 4.2-5.[address] [facility] Comment on above: Performed By: #### L 100.0100, L500.2500 ####[facility] [address] [place], [address] RDW SD 53.6 fl High 35.1-43.9 [facility] Comment on above: Performed By: #### L 100.0100, L500.2500 ####[facility] [address] [place], [address] WBC (Bld) [#/Vol] 5.8 10*3/uL Normal 4.4-11.[address] [facility] Comment on above: Performed By: #### L 100.0100, L500.2500 ####[facility] [address] [place], [address] Basic Metabolic Profile (BMP )on 07-05-2024 BUN Normal 7-18 [facility] Comment on above: Result Comment: Canc elled via OM: Order cancelled - Patient discharged Performed By: #### L 100.0100, L500.2500 ####[facility] [address] [place], [address] BUN/CRE Normal 10-20 [facility] Comment on above: Result Comment: Canc elled via OM: Order cancelled - Patient discharged Performed By: #### L 100.0100, L500.2500 ####[facility] [address] [place], [address] CA,Total Normal 8.5-10.1 [facility] Comment on above: Result Comment: Canc elled via OM: Order cancelled - Patient discharged Performed By: #### L 100.0100, L500.2500 ####[facility] [address] [place], [address] CL Normal 98-107 [facility] Comment on above: Result Comment: Canc elled via OM: Order cancelled - Patient discharged Performed By: #### L 100.0100, L500.2500 ####[facility] [address] [place], [address] CO2 Normal 21.0-32.0 [facility] Comment on above: Result Comment: Canc elled via OM: Order cancelled - Patient discharged Performed By: #### L 100.0100, L500.2500 ####[facility] [address] [place], [address] CREAT,SERUM Normal 0.55-1.02 [facility] Comment on above: Result Comment: Canc elled via OM: Order cancelled - Patient discharged Performed By: #### L 100.0100, L500.2500 ####[facility] [address] [place], [address] EST GFR Normal >60 [facility] Comment on above: Result Comment: Canc elled via OM: Order cancelled - Patient discharged Performed By: #### L 100.0100, L500.2500 ####[facility] [address] [place], [address] EST GFR - AA Normal >60 [facility] Comment on above: Result Comment: Canc elled via OM: Order cancelled - Patient discharged Performed By: #### L 100.0100, L500.2500 ####[facility] [address], [address] GAP Normal 5-15 [facility] Comment on above: Result Comment: Canc elled via OM: Order cancelled - Patient discharged Performed By: #### L 100.0100, L500.2500 ####[facility] [address] [place], [address] GLU Normal 74-106 [facility] Comment on above: Result Comment: Canc elled via OM: Order cancelled - Patient discharged Performed By: #### L 100.0100, L500.2500 ####[facility] [address] [place], [address] Potassium Normal 3.5-5.1 [facility] Comment on above: Result Comment: Canc elled via OM: Order cancelled - Patient discharged Performed By: #### L 100.0100, L500.2500 ####[facility] [address] [place], [address] Basic Metabolic Profile (BMP) Normal 136-145 [facility] Comment on above: Result Comment: Canc elled via OM: Order cancelled - Patient discharged Performed By: #### L 100.0100, L500.2500 ####[facility] [address] [place], [address] CBC W/Diff, Automatedon 02-2 Absolute Neut Normal 2.0-7.7 [facility] Comment on above: Result Comment: Canc elled via OM: Order cancelled - Patient discharged Performed By: #### L 100.0100, L500.2500 ####[facility] [address] [place], [address] HCT Normal 37-47 [facility] Comment on above: Result Comment: Canc elled via OM: Order cancelled - Patient discharged Performed By: #### L 100.0100, L500.2500 ####[facility] [address] [place], [address] HGB Normal 12.0-15.0 [facility] Comment on above: Result Comment: Canc elled via OM: Order cancelled - Patient discharged Performed By: #### L 100.0100, L500.2500 ####[facility] [address] [place], [address] MCH Normal 27.0-32.0 [facility] Comment on above: Result Comment: Canc elled via OM: Order cancelled - Patient discharged Performed By: #### L 100.0100, L500.2500 ####[facility] [address] [place], [address] MCHC Normal 32-36 [facility] Comment on above: Result Comment: Canc elled via OM: Order cancelled - Patient discharged Performed By: #### L 100.0100, L500.2500 ####[facility] [address] [place], [address] MCV Normal 81-99 [facility] Comment on above: Result Comment: Canc elled via OM: Order cancelled - Patient discharged Performed By: #### L 100.0100, L500.2500 ####[facility] [address] [place], [address] NEUT% Normal 47-70 [facility] Comment on above: Result Comment: Canc elled via OM: Order cancelled - Patient discharged Performed By: #### L 100.0100, L500.2500 ####[facility] [address] [place], [address] PLT Normal 150-450 [facility] Comment on above: Result Comment: Canc elled via OM: Order cancelled - Patient discharged Performed By: #### L 100.0100, L500.2500 ####[facility] [address] [place], [address] RBC Normal 4.2-5.4 [facility] Comment on above: Result Comment: Canc elled via OM: Order cancelled - Patient discharged Performed By: #### L 100.0100, L500.2500 ####[facility] [address] [place], [address] RDW CV Normal 11.6-14.6 [facility] Comment on above: Result Comment: Canc elled via OM: Order cancelled - Patient discharged Performed By: #### L 100.0100, L500.2500 ####[facility] [address] [place], [address] RDW SD Normal 35.1-43.9 [facility] Comment on above: Result Comment: Canc elled via OM: Order cancelled - Patient discharged Performed By: #### L 100.0100, L500.2500 ####[facility] [address] [place], [address] WBC Normal 4.4-11.0 [facility] Comment on above: Result Comment: Canc elled via OM: Order cancelled - Patient discharged Performed By: #### L 100.0100, L500.2500 ####[facility] [address] [place], [address] Basic Metabolic Profile (BMP )on 07-01-2024 BUN/CRE 22.4 RATIO High 02-28 [facility] Comment on above: Performed By: #### L 500.2500, L100.0100 ####[facility] [address] [place], [address] CA,Total 9.4 mg/dL Normal 8.5-10.1 [facility] Comment on above: Performed By: #### L 500.2500, L100.0100 ####[facility] [address] [place], [address] Chloride [Moles/Vol] 100 mmol/L Normal 98-107 [facility] Comment on above: Performed By: #### L 500.2500, L100.0100 ####[facility] [address] [place], [address] CO2 [Moles/Vol] 29.0 mmol/L Normal 21.0-32.0 [facility] Comment on above: Performed By: #### L 500.2500, L100.0100 ####[facility] [address] [place], [address] Creatinine [Mass/Vol] 0.72 mg/dL Normal 0.55-1.02 [facility] Comment on above: Result Comment: The validity of the calculated GFR GFRAA in patients over70 years has not been determined. Clinical correlation isessential. Performed By: #### L 500.2500, L100.0100 ####[facility] [address] [place], [address] ECRCL 44.27 ml/min Normal [facility] Comment on above: Performed By: #### L 500.2500, L100.0100 ####[facility] [address] [place], [address] EST GFR - AA 99 mL/min Normal >60 [facility] Comment on above: Result Comment: Afri can Armenian GFR Calc Performed By: #### L 500.2500, L100.0100 ####[facility] [address] [place], [address] GAP 8 Normal 5-15 [facility] Comment on above: Performed By: #### L 500.2500, L100.0100 ####[facility] [address] [place], [address] GFR/1.73 sq M.predicted among non-blacks MDRD (S/P/Bld) [Vol rate/Area] 82 mL/min/{1.73_m2} Normal >60 [facility] Comment on above: Result Comment: Non- GFR Calc Performed By: #### L 500.2500, L100.0100 ####[facility] [address] [place], [address] Glucose [Mass/Vol] 102 mg/dL Normal 74-[address] [facility] Comment on above: Result Comment: Fast ing Glucose result from 100 to 125 mg/dLsuggests IMPAIRED HOMEOSTASIS per A.D.A. criteria. Performed By: #### L 500.2500, L100.0100 ####[facility] [address] [place], [address] Potassium [Moles/Vol] 4.4 mmol/L Normal 3.5-5.1 [facility] Comment on above: Performed By: #### L 500.2500, L100.0100 ####[facility] [address] [place], [address] Sodium [Moles/Vol] 137 mmol/L Normal 136-[address] [facility] Comment on above: Performed By: #### L 500.2500, L100.0100 ####[facility] [address] [place], [address] Urea nitrogen [Mass/Vol] 16 mg/dL Normal 7-18 [facility] Comment on above: Performed By: #### L 500.2500, L100.0100 ####[facility] [address] [place], [address] CBC W/Diff, Automatedon 06-13 0 Absolute Lymph 1.78 X10 3/uL Normal 0.83-4.51 [facility] Comment on above: Performed By: #### L 500.2500, L100.0100 ####[facility] [address] [place], [address] Absolute Neut 3.3 X10 3/uL Normal 2.0-7.7 [facility] Comment on above: Performed By: #### L 500.2500, L100.0100 ####[facility] [address] [place], [address] Basophils/100 WBC (Bld) 1.3 % High 0-[address] [facility] Comment on above: Performed By: #### L 500.2500, L100.0100 ####[facility] [address] [place], [address] Eosinophils/100 WBC (Bld) 5.6 % High 0-5 [facility] Comment on above: Performed By: #### L 500.2500, L100.0100 ####[facility] [address] [place], [address] Erythrocyte distribution width (RBC) [Ratio] 14.4 % Normal 11.6-14.6 [facility] Comment on above: Performed By: #### L 500.2500, L100.0100 ####[facility] [address] [place], [address] Hematocrit (Bld) [Volume fraction] 33.4 % Low 37-47 [facility] Comment on above: Performed By: #### L 500.2500, L100.0100 ####[facility] [address] [place], [address] Hemoglobin (Bld) [Mass/Vol] 10.5 g/dL Low 12.0-15.0 [facility] Comment on above: Performed By: #### L 500.2500, L100.0100 ####[facility] [address] [place], [address] IG% 0.800 Normal 0.0-0.9 [facility] Comment on above: Result Comment: IG% - Immature Granulocytes (promyelocytes, myelocytes andmetamyelocytes) > 1% indicates that a LEFT SHIFT is Present. Performed By: #### L 500.2500, L100.0100 ####[facility] [address] [place], [address] Lymphocytes/100 WBC (Bld) 29.2 % Normal 19-41 [facility] Comment on above: Performed By: #### L 500.2500, L100.0100 ####[facility] [address] [place], [address] MCH (RBC) [Entitic mass] 29.6 pg Normal 27.0-32.0 [facility] Comment on above: Performed By: #### L 500.2500, L100.0100 ####[facility] [address] [place], [address] MCHC (RBC) [Mass/Vol] 31.4 g/dL Low 32-36 [facility] Comment on above: Performed By: #### L 500.2500, L100.0100 ####[facility] [address] [place], [address] MCV (RBC) [Entitic vol] 94.1 fL Normal 81-[address] [facility] Comment on above: Performed By: #### L 500.2500, L100.0100 ####[facility] [address] [place], [address] Monocytes/100 WBC (Bld) 8.4 % Normal 0-[address] [facility] Comment on above: Performed By: #### L 500.2500, L100.0100 ####[facility] [address] [place], [address] Neutrophils/100 WBC (Bld) 54.7 % Normal 47-70 [facility] Comment on above: Performed By: #### L 500.2500, L100.0100 ####[facility] [address] [place], [address] Nucleated RBC (Bld) [#/Vol] 0 10*3/uL Normal 0-5 [facility] Comment on above: Performed By: #### L 500.2500, L100.0100 ####[facility] [address] [place], [address] Platelet mean volume (Bld) [Entitic vol] 9.5 fL Normal 6.2-12.0 [facility] Comment on above: Performed By: #### L 500.2500, L100.0100 ####[facility] [address] [place], [address] Platelets (Bld) [#/Vol] 357 10*3/uL Normal 150-450 [facility] Comment on above: Performed By: #### L 500.2500, L100.0100 ####[facility] [address] [place], [address] RBC (Bld) [#/Vol] 3.55 10*6/uL Low 4.2-5.[address] [facility] Comment on above: Performed By: #### L 500.2500, L100.0100 ####[facility] [address] [place], [address] RDW SD 50.5 fl High 35.1-43.9 [facility] Comment on above: Performed By: #### L 500.2500, L100.0100 ####[facility] [address] [place], [address] WBC (Bld) [#/Vol] 6.1 10*3/uL Normal 4.4-11.[address] [facility] Comment on above: Performed By: #### L 500.2500, L100.0100 ####[facility] [address] [place], [address] Basic metabolic 2000 panelon 06-30-2024 Anion gap [Moles/Vol] 9 mmol/L Normal 8-15 [facility] Comment on above: Order Comment: Speci men Type: BLOOD SPECIMENOrdering Facility: [facility] Address: [address] [place] [address] Performed By: #### 2 4321-2 ####[facility] [id number] [place] [address] [place] Calcium [Mass/Vol] 8.7 mg/dL Normal 8.5-10.2 [facility] Comment on above: Order Comment: Speci men Type: BLOOD SPECIMENOrdering Facility: [facility] Address: [address] [place] [address] Performed By: #### 2 4321-2 ####[facility] [id number] [place] [address] [place] Chloride [Moles/Vol] 98 mmol/L Normal 98-107 [facility] Comment on above: Order Comment: Speci men Type: BLOOD SPECIMENOrdering Facility: [facility] Address: [address] [place] [address] Performed By: #### 2 4321-2 ####[facility] [id number] [place] [address] [place] CO2 [Moles/Vol] 29 mmol/L Normal 22-30 [facility] Comment on above: Order Comment: Speci men Type: BLOOD SPECIMENOrdering Facility: [facility] Address: [address] [place] [address] Performed By: #### 2 4321-2 ####[facility]ORY[facility]IA [id number] [place] [address] [place] Creatinine [Mass/Vol] 0.77 mg/dL Normal 0.58-0.96 [facility] Comment on above: Order Comment: Speci men Type: BLOOD SPECIMENOrdering Facility: [facility] Address: [address] [place] [address] Performed By: #### 2 4321-2 ####[facility]ORYCLIA [id number] [place] [address] [place] Creatinine and Glomerular filtration rate.predicted panel (S/P/Bld) 74 mL/min/1.73m??? Normal >=60 [facility] Comment on above: Order Comment: Christopher hurd Type: BLOOD SPECIMENOrdering Facility: [facility] Address: [address] [place] [address] Result Comment: Michael mated Glomerular Filtration Rate [...] actual GFR. Performed By: #### 2 4321-2 ####[facility]ORATORYIA [id number] [place] [address] [place] Glucose [Mass/Vol] 97 mg/dL Normal 74-99 [facility] Comment on above: Order Comment: Specsteve hurd Type: BLOOD SPECIMENOrdering Facility: [facility] Address: [address] [place] [address] Result Comment: The [place] Diabetes Association (ADA) provides guidance for cutoff [...] Standards of Medical Care in Diabetes 2016, [place] [employer]. Diabetes Care. 2016.39(Suppl 1). Performed By: #### 2 4321-2 ####[facility]ORYCLIA [id number] [place] [id number] [place] Potassium [Moles/Vol] 4.4 mmol/L Normal 3.7-5.1 [facility] Comment on above: Order Comment: Speci men Type: BLOOD SPECIMENOrdering Facility: [facility] Address: [address] [place] [address] Performed By: #### 2 4321-2 ####[facility]ORYCLIA [id number] [address] STATES OF [facility] Sodium [Moles/Vol] 136 mmol/L Normal 136-144 [facility] Comment on above: Order Comment: Speci men Type: BLOOD SPECIMENOrdering Facility: [facility] Address: [address] [place] [address] Performed By: #### 2 4321-2 ####[facility]ORYCLIA [id number] [address] OF [facility] Urea nitrogen [Mass/Vol] 19 mg/dL Normal 7-21 [facility] Comment on above: Order Comment: Speci men Type: BLOOD SPECIMENOrdering Facility: [facility] Address: [address] [place] [address] Performed By: #### 2 4321-2 ####[facility]ATORYCLIA [id number] [address] STATES OF [facility] CBC panel Auto (Bld)on 06-30 Erythrocyte distribution width (RBC) [Ratio] 14.6 % Normal 11.5-15.0 [facility] Comment on above: Order Comment: Speci men Type: BLOOD SPECIMENOrdering Facility: [facility] Address: [address] [place] [address] Performed By: #### 5 8410-2 ####[facility]ORYCLIA [id number] [address] Hematocrit (Bld) [Volume fraction] 31.1 % Low 36.0-46.0 [facility] Comment on above: Order Comment: Speci men Type: BLOOD SPECIMENOrdering Facility: [facility] Address: [address] [place] [address] Performed By: #### 5 8410-2 ####[facility]ATORYCLIA [id number] [address] Hemoglobin (Bld) [Mass/Vol] 10.0 g/dL Low 11.5-15.5 [facility] Comment on above: Order Comment: Speci men Type: BLOOD SPECIMENOrdering Facility: [facility] Address: [address] [place] [address] Performed By: #### 5 8410-2 ####[facility]ATORYCLIA [id number] [address] MCH (RBC) [Entitic mass] 30.5 pg Normal 26.0-34.0 [facility] Comment on above: Order Comment: Speci men Type: BLOOD SPECIMENOrdering Facility: [facility] Address: [address] [place] [address] Performed By: #### 5 8410-2 ####[facility]ORYCLIA [id number] [address] MCHC (RBC) [Mass/Vol] 32.2 g/dL Normal 30.5-36.0 [facility] Comment on above: Order Comment: Speci men Type: BLOOD SPECIMENOrdering Facility: [facility] Address: [address] [place] [address] Performed By: #### 5 8410-2 ####[facility]ORYCLIA [id number] [address] MCV (RBC) [Entitic vol] 94.8 fL Normal 80.0-100.0 [facility] Comment on above: Order Comment: Speci men Type: BLOOD SPECIMENOrdering Facility: [facility] Address: [address] [address] Performed By: #### 5 8410-2 ####[facility]ORYCLIA [id number] [address] Nucleated RBC (Bld) [#/Vol] 10*3/uL Normal <0.01 [facility] Comment on above: Order Comment: Speci men Type: BLOOD SPECIMENOrdering Facility: [facility] Address: [address] [place] [address] Performed By: #### 5 8410-2 ####[facility]ORYCLIA [id number] [address] Platelet mean volume (Bld) [Entitic vol] 9.5 fL Normal 9.0-12.7 [facility] Comment on above: Order Comment: Speci men Type: BLOOD SPECIMENOrdering Facility: [facility] Address: [address] [place] [address] Performed By: #### 5 8410-2 ####[facility]ORYCLIA [id number] [address] OF [place] Platelets (Bld) [#/Vol] 265 10*3/uL Normal 150-400 [facility] Comment on above: Order Comment: Speci men Type: BLOOD SPECIMENOrdering Facility: [facility] Address: [address] [place] [address] Performed By: #### 5 8410-2 ####[facility]ORYCLIA [id number] [address] OF [place] RBC (Bld) [#/Vol] 3.28 10*6/uL Low 3.90-5.20 [facility] Comment on above: Order Comment: Speci men Type: BLOOD SPECIMENOrdering Facility: [facility] Address: [address] [place] [address] Performed By: #### 5 8410-2 ####[facility]ORYCLIA [id number] [address] [place] WBC (Bld) [#/Vol] 5.07 10*3/uL Normal 3.70-11.00 [facility] Comment on above: Order Comment: Speci men Type: BLOOD SPECIMENOrdering Facility: [facility] Address: [address] [place] [address] Performed By: #### 5 8410-2 ####[facility]ATORYCLIA [id number] [address] CNDSon 06-30-2024 CNDS HNO ID: [id number] Author: WALLY ZIEGLER MD Service: General Surgery Author Type: Nurse Practitioner Type: Discharge Summary Filed: 07/06/2024 15:47 Note Text: Attestation signed by Wally Ziegler MD at 07/06/2024 3:47 PM Attending Note The patient is appropriate for discharge on 06/30/2024 The [employer], acting on behalf of the attending physician, has completed the [id number] portion of the patient discharge encounter. Wally [...] an 89-year old female who presented to [place] ED on 06/26/24 following a fall. Patient [...] the above findings, patient was transferred to [facility] for further trauma evaluation. Patient's rib [...] No pending results Discharge Disposition Discharge Disposition: [facility] Facility - Less than 30 Days Activity When You Leave the Hospital Lifting is restricted to: No heavy lifting (>10 pounds) or strenuous exercise x 6 weeks Limited to: Weightbearing as tolerated with post-operative boot to right lo (more content not included)... Normal [facility] THERAPY NTon 06-30-2024 THERAPY NT HNO ID: [id number] Author: RAUDEL SAPP, PT Service: Physical Therapy Author Type: Physical Therapist Type: Therapy (PT/OT/Speech/Resp) Filed: 06/30/2024 16:09 Note Text: Physical Therapy Treatment Summary SERVICE DATE: 06/30/2024 SERVICE TIME: 1522 to 1545 ROOM: [place] [address] PT 6 Clicks Score: 17 DISCHARGE RECOMMENDATIONS [...] female admitted for fall, recently discharged from [place] following another fall, found to have R [...] prior to last fall and admission to [place] was independent with mobility, using rollator, recently discharged home from [place], living home alone with assist from family and friends for IADLs as needed, was about to start Home PT, OT, ST SUBJECTIVE Patient pleasant and agreeable to PT session THERAPY DIAGNOSIS Reduced mobility-other, Muscle Weakness (generalized), Unsteadiness on feet, General symptoms and signs-other TREATMENT INTERVENTIONS Therapeutic Exercise (38131), Therapeutic Activity (57329), Gait Training (16058) Therapeutic Exercise (60358) Treatment Minutes: 10 $ Therapeutic Exercise (54569) Billed Units: 1 unit Exercise Ankle Pumps (number of reps): 10 Quad Sets (number of reps): 10 Glut Sets (number of reps): 10 LAQ (number of reps): 10 BLE Hip Abduction (number of reps): 10 BLE Exercise: hip adduction squeezes x10, seated hip flexion x10 BLE Therapeutic Activity (64097) Treatment Minutes: 4 $ Therapeutic Activity (74311) Billed Units: 0 units Cues/assist with transfers, further education on spine precautions and assist to don/doff LSO brace for ambulation. Feet elevated in recliner at end of session with call light on lap. Gait Training (18066) Treatment Minutes: 9 $ Gait Training (77036) Billed Units: 1 unit Cues/assist with ambulation [...] (more content not included)... Normal [facility] THERAPY NT HNO ID: [id number] Author: JOSE ANGEL BELTRAN CCC-SECTION HAND HELPER Service: Speech/Swallow Author Type: Speech Language Pathologist Type: Therapy (PT/OT/Speech/Resp) Filed: 06/30/2024 10:38 Note Text: Speech Therapy Clinical Swallow Evaluation SERVICE DATE: 06/30/2024 SERVICE TIME: 0955 to 1010 ROOM: [place] [address] IMPRESSION Functional oropharyngeal phases of swallowing: without [...] Need TREATMENT INTERVENTIONS $ Clinical Swallow Evaluation (32054) Billed Units: 1 unit Clinical Swallow Evaluation (57160) Skilled Treatment Time (minutes): 15 TRAINING AND [...] Bite/Sip -Patient alert, up in chair on SECTION HAND HELPER arrival, agreeable to evaluation -Able to feed [...] Developed with: Patient SIGNATURE: Jose Angel Beltran CCC-SECTION HAND HELPER PATIENT NAME: Joyce Solomon DATE: June 30, 2024 TIME: 10:36 AM Normal [facility] Basic metabolic 2000 panelon 06-29-2024 Anion gap [Moles/Vol] 10 mmol/L Normal 8-15 [facility] Comment on above: Order Comment: Speci men Type: BLOOD SPECIMENOrdering Facility: [facility] Address: [address] [place] [address] Performed By: #### 1 91239, 50861-2 ####[facility]ORYCLIA [id number] [place] [address] [place] Calcium [Mass/Vol] 8.7 mg/dL Normal 8.5-10.2 [facility] Comment on above: Order Comment: Speci men Type: BLOOD SPECIMENOrdering Facility: [facility] Address: [address] [place] [address] Performed By: #### 1 9, 21780-8 ####[facility]ORYCLIA [id number] [place] [address] [place] Chloride [Moles/Vol] 97 mmol/L Low 98-107 [facility] Comment on above: Order Comment: Speci men Type: BLOOD SPECIMENOrdering Facility: [facility] Address: [address] [place] [address] Performed By: #### 1 9123-01, 39994-2 ####[facility] LABORATORYCLIA [id number] [place] [address] [place] CO2 [Moles/Vol] 28 mmol/L Normal 22-30 [facility] Comment on above: Order Comment: Speci men Type: BLOOD SPECIMENOrdering Facility: [facility] Address: [address] [place] [address] Performed By: #### 1 9123-01, ####[facility]ORATORYCLIA [id number] [place] [address] [place] Creatinine [Mass/Vol] 0.78 mg/dL Normal 0.58-0.96 [facility] Comment on above: Order Comment: Speci men Type: BLOOD SPECIMENOrdering Facility: [facility] Address: [address] [place] [address] Performed By: #### 1 239, 49098-9 ####[facility] LABORATORYCLIA [id number] [place] [address] [place] Creatinine and Glomerular filtration rate.predicted panel (S/P/Bld) 73 mL/min/1.73m??? Normal >=60 [facility] Comment on above: Order Comment: Christopher hurd Type: BLOOD SPECIMENOrdering Facility: [facility] Address: [address] [place] [address] Result Comment: Michael mated Glomerular Filtration Rate [...] actual GFR. Performed By: #### 1 9123-9, 53975-1 ####[facility]ORATORYCLIA [id number] [place] [address] [place] Glucose [Mass/Vol] 99 mg/dL Normal 74-99 [facility] Comment on above: Order Comment: Christopher hurd Type: BLOOD SPECIMENOrdering Facility: [facility] Address: [address] [place] [address] Result Comment: The [employer] (ADA) provides guidance for cutoff [...] Standards of Medical Care in Diabetes 2016, [employer]. Diabetes Care. 2016.39(Suppl 1). Performed By: #### 1 9123-9, 29417-1 ####[facility]ATORYCLIA [id number] [place] [address] [place] Potassium [Moles/Vol] 4.0 mmol/L Normal 3.7-5.1 [facility] Comment on above: Order Comment: Speci men Type: BLOOD SPECIMENOrdering Facility: [facility] Address: [address] [place] [address] Performed By: #### 1 9123-9, 49545-5 ####[facility]ORATORYCLIA [id number] [address] STATES OF [facility] Sodium [Moles/Vol] 135 mmol/L Low 136-144 [facility] Comment on above: Order Comment: Speci men Type: BLOOD SPECIMENOrdering Facility: [facility] Address: [address] [place] [address] Performed By: #### 1 9123-9, 00966-0 ####[facility]ORATORYCLIA [id number] [address] [place] Urea nitrogen [Mass/Vol] 17 mg/dL Normal 7-21 [facility] Comment on above: Order Comment: Speci men Type: BLOOD SPECIMENOrdering Facility: [facility] Address: [address] [place] [address] Performed By: #### 1 9123-9, 51549-2 ####[facility]ORATORYCLIA [id number] [address] STATES OF [facility] CBC panel Auto (Bld)on 06-29 Erythrocyte distribution width (RBC) [Ratio] 14.6 % Normal 11.5-15.0 [facility] Comment on above: Order Comment: Speci men Type: BLOOD SPECIMENOrdering Facility: [facility] Address: [address] [place] [address] Performed By: #### 5 8410-2 ####[facility]ORATORYCLIA [id number] [address] STATES OF [facility] Hematocrit (Bld) [Volume fraction] 29.4 % Low 36.0-46.0 [facility] Comment on above: Order Comment: Speci men Type: BLOOD SPECIMENOrdering Facility: [facility] Address: [address] [place] [address] Performed By: #### 5 8410-2 ####[facility]ORATORYCLIA [id number] [address] OF [facility] Hemoglobin (Bld) [Mass/Vol] 9.5 g/dL Low 11.5-15.5 [facility] Comment on above: Order Comment: Speci men Type: BLOOD SPECIMENOrdering Facility: [facility] Address: [address] [place] [address] Performed By: #### 5 8410-2 ####[facility]ORATORYCLIA [id number] [address] MCH (RBC) [Entitic mass] 30.4 pg Normal 26.0-34.0 [facility] Comment on above: Order Comment: Speci men Type: BLOOD SPECIMENOrdering Facility: [facility] Address: [address] [place] [address] Performed By: #### 5 8410-2 ####[facility]ATORYCLIA [id number] [address] MCHC (RBC) [Mass/Vol] 32.3 g/dL Normal 30.5-36.0 [facility] Comment on above: Order Comment: Speci men Type: BLOOD SPECIMENOrdering Facility: [facility] Address: [address] [place] [address] Performed By: #### 5 8410-2 ####[facility]ORATORYCLIA [id number] [address] MCV (RBC) [Entitic vol] 93.9 fL Normal 80.0-100.0 [facility] Comment on above: Order Comment: Speci men Type: BLOOD SPECIMENOrdering Facility: [facility] Address: [address] [place] [address] Performed By: #### 5 8410-2 ####[facility]ATORYCLIA [id number] [address] Nucleated RBC (Bld) [#/Vol] 10*3/uL Normal <0.01 [facility] Comment on above: Order Comment: Speci men Type: BLOOD SPECIMENOrdering Facility: [facility] Address: [address] [place] [address] Performed By: #### 5 8410-2 ####[facility]ORATORYCLIA [id number] [address] [place] Platelet mean volume (Bld) [Entitic vol] 9.4 fL Normal 9.0-12.7 [facility] Comment on above: Order Comment: Speci men Type: BLOOD SPECIMENOrdering Facility: [facility] Address: [address] [place] [address] Performed By: #### 5 8410-2 ####[facility]ATORYCLIA [id number] [address] [place] Platelets (Bld) [#/Vol] 262 10*3/uL Normal 150-400 [facility] Comment on above: Order Comment: Speci men Type: BLOOD SPECIMENOrdering Facility: [facility] Address: [address] [place] [address] Performed By: #### 5 8410-2 ####[facility]ATORYCLIA [id number] [address] [place] RBC (Bld) [#/Vol] 3.13 10*6/uL Low 3.90-5.20 [facility] Comment on above: Order Comment: Speci men Type: BLOOD SPECIMENOrdering Facility: [facility] Address: [address] [place] [address] Performed By: #### 5 8410-2 ####[facility]ATORYCLIA [id number] [address] [place] WBC (Bld) [#/Vol] 7.38 10*3/uL Normal 3.70-11.00 [facility] Comment on above: Order Comment: Speci men Type: BLOOD SPECIMENOrdering Facility: [facility] Address: [address] [place] [address] Performed By: #### 5 8410-2 ####[facility]ORATORYCLIA [id number] [address] OF [place] Magnesium SerPl-mCncon 06-29 Magnesium [Mass/Vol] 2.2 mg/dL Normal 1.7-2.3 [facility] Comment on above: Order Comment: Speci men Type: BLOOD SPECIMENOrdering Facility: [facility] Address: [address] [place] [address] Performed By: #### 1 9123-9, 14208-6 ####[facility]ORATORYCLIA [id number] [address] NUTRITIONon 06-29-2024 NUTRITION HNO ID: [id number] Author: ROSEMARY GÓMEZ RD Service: Nutrition Therapy [...] involving digestive system(787.99) PAF (paroxysmal atrial fibrillation) ([facility]) 10/20/2013 Thyroid disorder Intake History: Nutrition Intake [...] protein determined by: 1.2 - 1.5 g/kg, [place] body weight Diet Orders (From admission, onward) Start Ordered 06/29/24 141 DIET SUPPLEMENTS START NOW Question Answer Comment [...] 2024 TIME: 3:04 PM Normal [facility] THERAPY NTon 06-29-2024 THERAPY NT HNO ID: [id number] Author: SAMIA HENRY OTR/L Service: Occupational Therapy Author Type: Occupational Therapist Type: Therapy (PT/OT/Speech/Resp) Filed: 06/29/2024 14:06 Note Text: Occupational Therapy Evaluation Summary SERVICE DATE: 06/29/2024 SERVICE TIME: 1330 to 1356 ROOM: [place] [address]01 OT 6 Clicks Score: 14 DISCHARGE RECOMMENDATIONS [...] female admitted for fall, recently discharged [place] following another fall, found to have R [...] prior to last fall and admission to [place] was independent with mobility, using rollator, recently discharged home from [place], living home alone with assist from family and friends for IADLs as needed, was about to start Home PT, OT, ST Baseline Cognition: Oriented to self, Oriented to place, Oriented to time SUBJECTIVE awake, agreeable to OT session COGNITION Responsiveness: Alert, Awake Follows Commands: 3-step Commands THERAPY DIAGNOSIS Reduced mobility-other, Decreased activities of daily living (ADL), Muscle Weakness (generalized) TREATMENT INTERVENTIONS Evaluation, Self Nursing Home Management (19859) Timed Code Treatment (minutes): 10 Skilled Treatment Time (minutes): 26 $ Evaluation - Moderate (79276) Billed Units: 1 unit Self Nursing Home Management (38223) Treatment Minutes: 10 $ Self Nursing Home Management (08496) Billed Units: 1 unit TRAINING AND EDUCATION [...] (more content not included)... Normal [facility] THERAPY NT HNO ID: [id number] Author: RAUDEL SAPP PT Service: Physical Therapy Author Type: Physical Therapist Type: Therapy (PT/OT/Speech/Resp) Filed: 06/29/2024 11:06 Note Text: Physical Therapy Evaluation Summary SERVICE DATE: 06/29/2024 SERVICE TIME: 0942 to 1010 ROOM: [place] [address] PT 6 Clicks Score: 16 DISCHARGE RECOMMENDATIONS [...] female admitted for fall, recently [place] following [place] fall, found to have R [...] prior to last fall and admission to [place] was independent with mobility, using rollator, recently discharged home from [place], living home alone with assist from family and friends for IADLs as needed, was about to start Home PT SUBJECTIVE Patient pleasant and agreeable to PT session THERAPY DIAGNOSIS Reduced mobility-other, Muscle Weakness (generalized), Unsteadiness on feet, General symptoms and signs-other TREATMENT INTERVENTIONS Evaluation, Therapeutic Activity (71811) $ Evaluation-Moderate (54674) Billed Units: 1 unit Therapeutic Activity (76887) Treatment Minutes: 13 $ Therapeutic Activity (45579) Billed Units: 1 unit Cues/assist with mobility [...] (more content not included)... Normal [facility] ALLIED HEALTHon 06-28-2024 ALLIED HEALTH HNO ID: [id number] Author: SADIA PELAEZ RT(R) Service: Radiology Author [...] PATIENT PRESENTS WITH AN IMPLANTABLE OR ATTACHED SENIOR WEB SERVICES DEVELOPER: No RADIOLOGY DEPARTMENT: MR; Exam(s) Completed: Spine: Lumbar spine PERIPHERAL IV DATA: Not applicable SIGNED BY: RT Tomas(R) June 28, 2024 7:56 AM Normal [facility] Basic Metabolic Profile (BMP )on 06-28-2024 BUN Normal 7-18 [facility] Comment on above: Result Comment: Canc elled via OM: Order cancelled - Patient discharged Performed By: #### L 500.2500, L100.0100 ####[facility] [address] [facility] [address] BUN/CRE Normal 10-20 [facility] Comment on above: Result Comment: Canc elled via OM: Order cancelled - Patient discharged Performed By: #### L 500.2500, L100.0100 ####[facility] [address] [place], [address] CA,Total Normal 8.5-10.1 [facility] Comment on above: Result Comment: Canc elled via OM: Order cancelled - Patient discharged Performed By: #### L 500.2500, L100.0100 ####[facility] [address] [place], [address] CL Normal 98-107 [facility] Comment on above: Result Comment: Canc elled via OM: Order cancelled - Patient discharged Performed By: #### L 500.2500, L100.0100 ####[facility] [address] [place], [address] CO2 Normal 21.0-32.0 [facility] Comment on above: Result Comment: Canc elled via OM: Order cancelled - Patient discharged Performed By: #### L 500.2500, L100.0100 ####[facility] [address] [place], [address] CREAT,SERUM Normal 0.55-1.02 [facility] Comment on above: Result Comment: Canc elled via OM: Order cancelled - Patient discharged Performed By: #### L 500.2500, L100.0100 ####[facility] [address] [place], [address] EST GFR Normal >60 [facility] Comment on above: Result Comment: Canc elled via OM: Order cancelled - Patient discharged Performed By: #### L 500.2500, L100.0100 ####[facility] [address] [place], [address] EST GFR - AA Normal >60 [facility] Comment on above: Result Comment: Canc elled via OM: Order cancelled - Patient discharged Performed By: #### L 500.2500, L100.0100 ####[facility] [address] [place], [address] GAP Normal 5-15 [facility] Comment on above: Result Comment: Canc elled via OM: Order cancelled - Patient discharged Performed By: #### L 500.2500, L100.0100 ####[facility] [address] [place], [address] GLU Normal 74-106 [facility] Comment on above: Result Comment: Canc elled via OM: Order cancelled - Patient discharged Performed By: #### L 500.2500, L100.0100 ####[facility] [address] [place], [address] Potassium Normal 3.5-5.1 [facility] Comment on above: Result Comment: Canc elled via OM: Order cancelled - Patient discharged Performed By: #### L 500.2500, L100.0100 ####[facility] [address] [place], [address] Basic Metabolic Profile (BMP) Normal 136-145 [facility] Comment on above: Result Comment: Canc elled via OM: Order cancelled - Patient discharged Performed By: #### L 500.2500, L100.0100 ####[facility] [address] [place], [address] Basic metabolic 2000 panelon 06-28-2024 Anion gap [Moles/Vol] 10 mmol/L Normal 8-15 [facility] Comment on above: Order Comment: Speci men Type: BLOOD SPECIMENOrdering Facility: [facility] Address: [address] [place] [address] Performed By: #### 2 4321-2, , 2776-05 ####[facility]ORATORYCLIA [id number] [place] [address] [place] Calcium [Mass/Vol] 8.6 mg/dL Normal 8.5-10.2 [facility] Comment on above: Order Comment: Speci men Type: BLOOD SPECIMENOrdering Facility: [facility] Address: [address] [place] [address] Performed By: #### 2 4321-2, , 2776-05 ####[facility]ORATORYCLIA [id number] [place] [address] [place] Chloride [Moles/Vol] 96 mmol/L Low 98-107 [facility] Comment on above: Order Comment: Speci men Type: BLOOD SPECIMENOrdering Facility: [facility] Address: [facility] [place] [address] Performed By: #### 2 4321-2, , 2776-05 ####[facility]ORATORYCLIA [id number] [place] [address] [place] CO2 [Moles/Vol] 31 mmol/L High 22-30 [facility] Comment on above: Order Comment: Speci men Type: BLOOD SPECIMENOrdering Facility: [facility] Address: [address] [address] Performed By: #### 2 4321-2, , 2776-05 ####[facility]ORATORYCLIA [id number] [place] [address] [place] Creatinine [Mass/Vol] 0.75 mg/dL Normal 0.58-0.96 [facility] Comment on above: Order Comment: Speci men Type: BLOOD SPECIMENOrdering Facility: [facility] Address: [address] [place] [address] Performed By: #### 2 4321-2, , 2776-05 ####[facility] CENTERCLIA [id number] [address] STATES OF [facility] Creatinine and Glomerular filtration rate.predicted panel (S/P/Bld) 77 mL/min/1.73m??? Normal >=60 [facility] Comment on above: Order Comment: Speci men Type: BLOOD SPECIMENOrdering Facility: [facility] Address: [address] [place] [address] Result Comment: Michael mated Glomerular Filtration Rate [...] Performed By: #### 2 4321-2, , 2776-05 ####[facility]ORATORYCLIA [id number] [place] [address] [place] Glucose [Mass/Vol] 88 mg/dL Normal 74-99 [facility] Comment on above: Order Comment: Speci men Type: BLOOD SPECIMENOrdering Facility: [facility] Address: [address] [address] Result Comment: The [employer] (ADA) provides guidance for cutoff [...] Standards of Medical Care in Diabetes 2016, [employer]. Diabetes Care. 2016.39(Suppl 1). Performed By: #### 2 4321-2, , 2776-05 ####[facility]ORATORYCLIA [id number] [place] [address] [place] Potassium [Moles/Vol] 3.7 mmol/L Normal 3.7-5.1 [facility] Comment on above: Order Comment: Speci men Type: BLOOD SPECIMENOrdering Facility: [facility] Address: [address] [place] [address] Performed By: #### 2 4321-2, , 2776-05 ####[facility] H[facility]PITALIA [id number] [place] [address] [place] Sodium [Moles/Vol] 137 mmol/L Normal 136-144 [facility] Comment on above: Order Comment: Jeanettei men Type: BLOOD SPECIMENOrdering Facility: [facility] Address: [address] [address] Performed By: #### 2 4321-2, , 2776-05 ####[facility]ORATORYCLIA [id number] [place] [address] [place] Urea nitrogen [Mass/Vol] 15 mg/dL Normal 7-21 [facility] Comment on above: Order Comment: Jeanettei men Type: BLOOD SPECIMENOrdering Facility: [facility] Address: [address] [place] [address] Performed By: #### 2 4321-2, , 2776-05 ####[facility]ORATORYCLIA [id number] [place] [address] [place] CBC W/Diff, Automatedon 02- Absolute Neut Normal 2.0-7.7 [facility] Comment on above: Result Comment: Canc elled via OM: Order cancelled - Patient discharged Performed By: #### L 500.2500, L100.0100 ####[facility] [address] [place], [address] HCT Normal 37-47 [facility] Comment on above: Result Comment: Canc elled via OM: Order cancelled - Patient discharged Performed By: #### L 500.2500, L100.0100 ####[facility] [address] [place], [address] HGB Normal 12.0-15.0 [facility] Comment on above: Result Comment: Canc elled via OM: Order cancelled - Patient discharged Performed By: #### L 500.2500, L100.0100 ####[facility] [address] [place], [address] MCH Normal 27.0-32.0 [facility] Comment on above: Result Comment: Canc elled via OM: Order cancelled - Patient discharged Performed By: #### L 500.2500, L100.0100 ####[facility] [address] [place], [address] MCHC Normal 32-36 [facility] Comment on above: Result Comment: Canc elled via OM: Order cancelled - Patient discharged Performed By: #### L 500.2500, L100.0100 ####[facility] [address] [place], [address] MCV Normal 81-99 [facility] Comment on above: Result Comment: Canc elled via OM: Order cancelled - Patient discharged Performed By: #### L 500.2500, L100.0100 ####[facility] [address] [place], [address] NEUT% Normal 47-70 [facility] Comment on above: Result Comment: Canc elled via OM: Order cancelled - Patient discharged Performed By: #### L 500.2500, L100.0100 ####[facility] [address] [place], [address] PLT Normal 150-450 [facility] Comment on above: Result Comment: Canc elled via OM: Order cancelled - Patient discharged Performed By: #### L 500.2500, L100.0100 ####[facility] [address] [place], [address] RBC Normal 4.2-5.4 [facility] Comment on above: Result Comment: Canc elled via OM: Order cancelled - Patient discharged Performed By: #### L 500.2500, L100.0100 ####[facility] [address] [place], [address] RDW CV Normal 11.6-14.6 [facility] Comment on above: Result Comment: Canc elled via OM: Order cancelled - Patient discharged Performed By: #### L 500.2500, L100.0100 ####[facility] [address] [place], [address] RDW SD Normal 35.1-43.9 [facility] Comment on above: Result Comment: Canc elled via OM: Order cancelled - Patient discharged Performed By: #### L 500.2500, L100.0100 ####[facility] [address] [place], [address] WBC Normal 4.4-11.0 [facility] Comment on above: Result Comment: Canc elled via OM: Order cancelled - Patient discharged Performed By: #### L 500.2500, L100.0100 ####[facility] [address] [place], [address] CBC panel Auto (Bld)on 06-28 Erythrocyte distribution width (RBC) [Ratio] 14.7 % Normal 11.5-15.0 [facility] Comment on above: Order Comment: Speci men Type: BLOOD SPECIMENOrdering Facility: [facility] Address: [address] [place] [address] Performed By: #### 5 8410-2 ####[facility] LABORATORYCLIA [id number] [address] OF [facility] Hematocrit (Bld) [Volume fraction] 28.8 % Low 36.0-46.0 [facility] Comment on above: Order Comment: Speci men Type: BLOOD SPECIMENOrdering Facility: [facility] Address: [address] [place] [address] Performed By: #### 5 8410-2 ####[facility] LABORATORYCLIA [id number] [address] OF [facility] Hemoglobin (Bld) [Mass/Vol] 9.3 g/dL Low 11.5-15.5 [facility] Comment on above: Order Comment: Speci men Type: BLOOD SPECIMENOrdering Facility: [facility] Address: [address] [place] [address] Performed By: #### 5 8410-2 ####[facility]ORATORYCLIA [id number] [address] [place] MCH (RBC) [Entitic mass] 30.4 pg Normal 26.0-34.0 [facility] Comment on above: Order Comment: Speci men Type: BLOOD SPECIMENOrdering Facility: [facility] Address: [address] [place] [address] Performed By: #### 5 8410-2 ####[facility]ORATORYCLIA [id number] [address] [place] MCHC (RBC) [Mass/Vol] 32.3 g/dL Normal 30.5-36.0 [facility] Comment on above: Order Comment: Speci men Type: BLOOD SPECIMENOrdering Facility: [facility] Address: [address] [address] Performed By: #### 5 8410-2 ####[facility]ORATORYCLIA [id number] [address] OF [facility] MCV (RBC) [Entitic vol] 94.1 fL Normal 80.0-100.0 [facility] Comment on above: Order Comment: Speci men Type: BLOOD SPECIMENOrdering Facility: [facility] Address: [address] [place] [address] Performed By: #### 5 8410-2 ####[facility] LABORATORYCLIA [id number] [address] Nucleated RBC (Bld) [#/Vol] 10*3/uL Normal <0.01 [facility] Comment on above: Order Comment: Speci men Type: BLOOD SPECIMENOrdering Facility: [facility] Address: [address] [place] [address] Performed By: #### 5 8410-2 ####[facility]ORATORYCLIA [id number] [address] Platelet mean volume (Bld) [Entitic vol] 9.2 fL Normal 9.0-12.7 [facility] Comment on above: Order Comment: Speci men Type: BLOOD SPECIMENOrdering Facility: [facility] Address: [address] [place] [address] Performed By: #### 5 8410-2 ####[facility] LABORATORYCLIA [id number] [address] Platelets (Bld) [#/Vol] 262 10*3/uL Normal 150-400 [facility] Comment on above: Order Comment: Speci men Type: BLOOD SPECIMENOrdering Facility: [facility] Address: [address] [place] [address] Performed By: #### 5 8410-2 ####[facility] LABORATORYCLIA [id number] [address] [place] RBC (Bld) [#/Vol] 3.06 10*6/uL Low 3.90-5.20 [facility] Comment on above: Order Comment: Speci men Type: BLOOD SPECIMENOrdering Facility: [facility] Address: [address] [place], [place] [address] Performed By: #### 5 8410-2 ####[facility]ORATORYCLIA [id number] [address] [place] WBC (Bld) [#/Vol] 6.94 10*3/uL Normal 3.70-11.00 [facility] Comment on above: Order Comment: Speci men Type: BLOOD SPECIMENOrdering Facility: [facility] Address: [address] [place] [address] Performed By: #### 5 8410-2 ####[facility] LABORATORYCLIA [id number] [place] [id number] [facility] OF [place] CONSULTon 06-28-2024 CONSULT HNO ID: [id number] Author: LELAND REILLY PA Service: Geriatrics Author Type: Physician Book Critic Type: Consults Filed: 06/28/2024 11:10 Note Text: [...] Patient fell at home, was taken to [place] ED for evaluation. Noted patient has had multiple recent falls. 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 Was transferred to [facility] for trauma evaluation. Patient was admitted under trauma to ICU. Neurosurgery consulted for prior L2-3 vertebroplasty with retropulsion of bone fragments and R L1 and R L2 TP fractures, recommended further imaging and bedrest. Orthopedic surgery consulted for R fifth metatarsal fracture, recommended non-operative management. Patient was transferred to [facility] on 06/27. Determined to be HIGH RISK [...] (paroxysmal atrial fibrillation) (HCC) 10/20/2013 Thyroid disorder Past Surgical History: PAST SURGICAL HISTORY Procedure Laterality Date APPENDECTOMY CHOLECYSTECTOMY COLONOSCOPY FLX DX W/COLLJ SPEC WHEN PFRMD 06-12-06 Repeat in COLONOSCOPY FLX DX W/COLLJ SP (more content not included)... Normal [facility] Calcium.ionized [Moles/Vol]o n 06-28-2024 Calcium.ionized (BldV) [Mass/Vol] 1.14 mmol/L Normal 1.08-1.30 [facility] Comment on above: Order Comment: Christopher hurd Type: BLOOD SPECIMENOrdering Facility: [facility] Address: [address] [address] Performed By: #### 1 995-0 ####[facility] LABORATORYCLIA [id number] [place] [address] [place] Calcium.ionized adjusted to pH 7.4 (Bld) [Moles/Vol] 1.17 mmol/L Normal 1.08-1.30 [facility] Comment on above: Order Comment: Christopher hurd Type: BLOOD SPECIMENOrdering Facility: [facility] Address: [address] [address] Performed By: #### 1 995-0 ####[facility]ORATORYCLIA [id number] [address] [place] MRI LUMBAR SPINE [...] of canal compromise. Anatomic Lumbar Variant: None Criminal Justice Social Worker: CLINT Transcribe Date/Time: Jun 28 2024 8:50A Dictated by : ANGUS BARTLETT MD This examination was interpreted and the report reviewed and electronically signed by: ANGUS BARTLETT MD on Jun 28 2024 9:02AM EST [id number] CN Normal [facility] Magnesium [facility] Magnesium [Mass/Vol] 1.7 mg/dL Normal 1.7-2.3 [facility] Comment on above: Order Comment: Christopher hurd Type: BLOOD SPECIMENOrdering Facility: [facility] Address: [address] [place] [address] Performed By: #### 2 4321-2, , 2776-05 ####[facility] CENTERCLIA [id number] [place] [address] [place] Phosphate [facility] 06[facility]28 Phosphate [Mass/Vol] 3.7 mg/dL Normal 2.7-4.8 [facility] Comment on above: Order Comment: Christopher hurd Type: BLOOD SPECIMENOrdering Facility: [facility] Address: [address] [place] [address] Performed By: #### 2 4321-2, , 2776-05 ####[facility] LABORATORYIA [id number] [place] [address] [place] 25(OH)D3 SerP-ncon 2024 25-hydroxyvitamin D3 [Mass/Vol] 35.2 ng/mL Normal >=30.0 [facility] Comment on above: Order Comment: Christopher hurd Type: BLOOD SPECIMENOrdering Facility: [facility] Address: [address] [place] [address] Result Comment: Clas sification of 25 [place] Vitamin D status: Deficiency: <= 20.0 ng/ml. Insufficiency: 21.0-29.0 ng/ml. Sufficiency: >= 30.0 ng/ml. Performed By: #### 1 989-3 ####[facility]ORATORYCLIA [id number] [place] [id number] [facility] ALLIED HEALTHon 06-27-2024 ALLIED HEALTH HNO ID: [id number] Author: ROBIN PABLO RT(R) Service: Radiology Author Type: Technologist [...] PATIENT PRESENTS WITH AN IMPLANTABLE OR ATTACHED SENIOR WEB SERVICES DEVELOPER: No ALLERGIES: Reviewed and unchanged CONTRAST ALLERGY: [...] , CTA Neck , and Spine SIGNATURE: Robin Pablo, RT(R) PATIENT NAME: Joyce Solomon DATE: June 27, 2024 TIME: 6:07 AM Normal [facility] CBC panel Auto (Bld)on 06-27 Erythrocyte distribution width (RBC) [Ratio] 14.6 % Normal 11.5-15.0 [facility] Comment on above: Order Comment: Speci vannessa Type: BLOOD SPECIMENOrdering Facility: [facility] Address: [address] [place] [address] Performed By: #### 5 8410-2 ####[facility]ORATORYCLIA [id number] [address] [place] Hematocrit (Bld) [Volume fraction] 29.9 % Low 36.0-46.0 [facility] Comment on above: Order Comment: Speci men Type: BLOOD SPECIMENOrdering Facility: [facility] Address: [address] [address] Performed By: #### 5 8410-2 ####[facility]ORATORYCLIA [id number] [address] [place] Hemoglobin (Bld) [Mass/Vol] 9.5 g/dL Low 11.5-15.5 [facility] Comment on above: Order Comment: Speci men Type: BLOOD SPECIMENOrdering Facility: [facility] Address: [address] [place] [address] Performed By: #### 5 8410-2 ####[facility]ORATORYCLIA [id number] [address] [place] MCH (RBC) [Entitic mass] 29.9 pg Normal 26.0-34.0 [facility] Comment on above: Order Comment: Jeanettei men Type: BLOOD SPECIMENOrdering Facility: [facility] Address: [address] [place] [address] Performed By: #### 5 8410-2 ####[facility]ORATORYCLIA [id number] [address] [place] MCHC (RBC) [Mass/Vol] 31.8 g/dL Normal 30.5-36.0 [facility] Comment on above: Order Comment: Speci men Type: BLOOD SPECIMENOrdering Facility: [facility] Address: [address] [place] [address] Performed By: #### 5 8410-2 ####[facility]ORATORYCLIA [id number] [address] OF [facility] MCV (RBC) [Entitic vol] 94.0 fL Normal 80.0-100.0 [facility] Comment on above: Order Comment: Speci men Type: BLOOD SPECIMENOrdering Facility: [facility] Address: [address] [place] [address] Performed By: #### 5 8410-2 ####[facility]ATORYCLIA [id number] [address] Nucleated RBC (Bld) [#/Vol] 10*3/uL Normal <0.01 [facility] Comment on above: Order Comment: Speci men Type: BLOOD SPECIMENOrdering Facility: [facility] Address: [address] [place] [address] Performed By: #### 5 8410-2 ####[facility]ORATORYCLIA [id number] [address] [place] Platelet mean volume (Bld) [Entitic vol] 9.3 fL Normal 9.0-12.7 [facility] Comment on above: Order Comment: Speci men Type: BLOOD SPECIMENOrdering Facility: [facility] Address: [address] [place] [address] Performed By: #### 5 8410-2 ####[facility]ORATORYCLIA [id number] [address] [place] Platelets (Bld) [#/Vol] 264 10*3/uL Normal 150-400 [facility] Comment on above: Order Comment: Speci men Type: BLOOD SPECIMENOrdering Facility: [facility] Address: [address] [address] Performed By: #### 5 8410-2 ####[facility]ORATORYCLIA [id number] [address] RBC (Bld) [#/Vol] 3.18 10*6/uL Low 3.90-5.20 [facility] Comment on above: Order Comment: Speci men Type: BLOOD SPECIMENOrdering Facility: [facility] Address: [address] [place] [address] Performed By: #### 5 8410-2 ####[facility]ATORYCLIA [id number] [address] WBC (Bld) [#/Vol] 6.47 10*3/uL Normal 3.70-11.00 [facility] Comment on above: Order Comment: Speci men Type: BLOOD SPECIMENOrdering Facility: [facility] Address: [address] [place] [address] Performed By: #### 5 8410-2 ####[facility]ORATORYCLIA [id number] [address] CONSULTon 06-27-2024 CONSULT HNO ID: [id number] Author: GILL ADORNO DPM Service: Orthopaedic Surgery Author Type: Physician Type: Consults Filed: 06/28/2024 18:51 Note Text: ORTHOPAEDIC SURGERY CONSULT Pt: JOYCE SOLOMON Date of Consultation: 06/27/2024 Physician Consulted: Dr. Adorno Reason for Consultation: Right fifth metatarsal fracture 89 year old female presented to [facility] ED on 06/27/2024 for evaluation by [...] Tonsillectomy Allergies: Sutures; Actonel [Risedronate Sodium]; Adhes. Leoe-Gsfz-Bcrfamkuoq um; Beets; Cantaloupe; Eggplant; Fosamax [Alendronate Sodium]; [...] (more content not included)... Normal [facility] CONSULT HNO ID: [id number] Author: KALYAN KENNEDY PA-C Service: Neurosurgery Author Type: Physician Book Critic Type: Consults Filed: 06/27/2024 05:42 Note Text: [...] female presenting as a trauma transfer from [facility] following a mechanical GLF. Patient states she [...] involving digestive system(787.99) PAF (paroxysmal atrial fibrillation) ([facility]) 10/20/2013 Thyroid disorder PAST SURGICAL HISTORY Procedure [...] GI Upset States had GI bleed Adhes. Rsgs-Lhwr-Il* Beets Rash raised injection site when allergy [...] (more content not included)... Normal [facility] CT ABD/PEL W IVCONon 025 CT ABD/PEL W IVCON * * *Final Report* * * DATE OF EXAM: Jun 27 2024 6:20AM [facility] 0530 - CT ABD/PEL W IVCON / [...] Bibasilar opacities possible pneumonia on the right. Criminal Justice Social Worker: CLINT Transcribe Date/Time: Jun 27 2024 7:30A Dictated by : CHARLIE DELEON MD This examination was interpreted and the report reviewed and electronically signed by: CHARLIE DELEON MD on Jun 27 2024 7:50AM EST [id number] CN Normal [facility] CT LUMBAR SPINE W RECON DATA -NBon 06-27-2024 CT LUMBAR SPINE W RECON DATA -NB * * *Final Report* * * DATE OF EXAM: Jun 27 2024 6:20AM [facility] 0481 - CT LUMBAR SPINE W RECON [...] Bibasilar opacities possible pneumonia on the right. Criminal Justice Social Worker: [facility] Transcribe Date/Time: Jun 27 2024 7:30A Dictated by : CHARLIE DELEON MD This examination was interpreted and the report reviewed and electronically signed by: CHARLIE DELEON MD on Jun 27 2024 7:50AM EST [id number] CN Normal [facility] CT THORACIC SPINE WO IVCONon 06-27-2024 CT THORACIC SPINE WO IVCON * * *Final Report* * * DATE OF EXAM: Jun 27 2024 6:20AM [facility] 0514 - CT THORACIC SPINE WO IVCON [...] Bibasilar opacities possible pneumonia on the right. Criminal Justice Social Worker: [facility] Transcribe Date/Time: Jun 27 2024 7:30A Dictated by : CHARLIE DELEON MD This examination was interpreted and the report reviewed and electronically signed by: CHARLIE DELEON MD on Jun 27 2024 7:50AM EST [id number] CN Normal [facility] CTA HEAD W IVCONon 5 CTA HEAD W IVCON * * *Final Report* * * DATE OF EXAM: Jun 27 2024 6:20AM [facility] 0022 - CTA HEAD W IVCON / [...] Circulation: No large vessel occlusion or aneurysm. Hospital Security Officer (topogram) images: No significant findings. IMPRESSION: 1. No intracranial large vessel occlusion or aneurysm. 2. No blunt vascular injury or hemodynamically significant stenosis of the common carotid, internal carotid, or vertebral arteries. Arterial blood flow was measured to detect acute large vessel occlusion by computer aided detection software: Not Performed. Concordance between software and imaging review: Not Applicable. Criminal Justice Social Worker: CLINT Transcribe Date/Time: Jun 27 2024 6:45A Dictated by : JOSE LÓPEZ MD This examination was interpreted and the report reviewed and electronically signed by: JOSE LÓPEZ MD on Jun 27 2024 6:51AM EST [id number] CN Normal [facility] CTA NECK W IVCONon 5 CTA NECK W IVCON * * *Final Report* * * DATE OF EXAM: Jun 27 2024 6:20AM [facility] 0024 - CTA NECK W IVCON / [...] Circulation: No large vessel occlusion or aneurysm. Hospital Security Officer (topogram) images: No significant findings. IMPRESSION: 1. No intracranial large vessel occlusion or aneurysm. 2. No blunt vascular injury or hemodynamically significant stenosis of the common carotid, internal carotid, or vertebral arteries. Arterial blood flow was measured to detect acute large vessel occlusion by computer aided detection software: Not Performed. Concordance between software and imaging review: Not Applicable. Criminal Justice Social Worker: CLINT Transcribe Date/Time: Jun 27 2024 6:45A Dictated by : JOSE LÓPEZ MD This examination was interpreted and the report reviewed and electronically signed by: JOSE LÓPEZ MD on Jun 27 2024 6:51AM EST [id number] CN Normal [facility] Calcium.ionized [Moles/Vol]o n 06-27-2024 Calcium.ionized (BldV) [Mass/Vol] 1.11 mmol/L Normal 1.08-1.30 [facility] Comment on above: Order Comment: Speci men Type: BLOOD SPECIMENOrdering Facility: [facility] Address: [address] [place] [address] Performed By: #### 1 995-0 ####[facility] LABORATORYCLIA [id number] [address] OF [facility] Calcium.ionized adjusted to pH 7.4 (Bld) [Moles/Vol] 1.14 mmol/L Normal 1.08-1.30 [facility] Comment on above: Order Comment: Speci men Type: BLOOD SPECIMENOrdering Facility: [facility] Address: [address] [place] [address] Performed By: #### 1 995-0 ####[facility]ORATORYCLIA [id number] [address] [place] Comprehensive metabolic 2000 panelon 06-27-2024 Albumin [Mass/Vol] 3.1 g/dL Low 3.9-4.9 [facility] Comment on above: Order Comment: Speci men Type: BLOOD SPECIMENOrdering Facility: [facility] Address: [address] [place] [address] Performed By: #### 2 777-1, 58829-0, 3040-3, 42276-6 ####[facility]ORATORYCLIA [id number] [place] [address] [place] [facility] ALP [Catalytic activity/Vol] 56 U/L Normal 34-123 [facility] Comment on above: Order Comment: Speci men Type: BLOOD SPECIMENOrdering Facility: [facility] Address: [address] [place] [address] Performed By: #### 2 777-1, 70319-1, 3040-3, 07309-1 ####[facility]ORATORYCLIA [id number] [place] [address] [place] [facility] ALT With P-5'-P [Catalytic activity/Vol] 10 U/L Normal 7-38 [facility] Comment on above: Order Comment: Speci men Type: BLOOD SPECIMENOrdering Facility: [facility] Address: [address] [place] [address] Performed By: #### 2 777-1, 91648-7, 3040-3, 53556-7 ####[facility]ORATORYCLIA [id number] [address] STATES OF [facility] Anion gap [Moles/Vol] 9 mmol/L Normal 8-15 [facility] Comment on above: Order Comment: Speci men Type: BLOOD SPECIMENOrdering Facility: [facility] Address: [address] [place] [address] Performed By: #### 2 777-1, 01604-6, 3040-3, 77770-8 ####[facility]ORATORYCLIA [id number] [place] [id number] [place] [facility] AST With P-5'-P [Catalytic activity/Vol] 22 U/L Normal 13-35 [facility] Comment on above: Order Comment: Speci men Type: BLOOD SPECIMENOrdering Facility: [facility] Address: [address] [place] [address] Performed By: #### 2 777-1, 09241-9, 3040-3, 30587-1 ####[facility]ORATORYCLIA [id number] [place] [address] [place] [facility] Bilirubin [Mass/Vol] 0.4 mg/dL Normal 0.2-1.3 [facility] Comment on above: Order Comment: Speci men Type: BLOOD SPECIMENOrdering Facility: [facility] Address: [address] [place] [address] Performed By: #### 2 777-1, , 3039-3, 12725-5 ####[facility]ORATORYCLIA [id number] [place] [address] [place] Calcium [Mass/Vol] 8.5 mg/dL Normal 8.5-10.2 [facility] Comment on above: Order Comment: Speci men Type: BLOOD SPECIMENOrdering Facility: [facility] Address: [address] [place] [address] Performed By: #### 2 777-1, , 3, 99021-6 ####[facility]ORATORYCLIA [id number] [place] [address] [place] Chloride [Moles/Vol] 98 mmol/L Normal 98-107 [facility] Comment on above: Order Comment: Speci men Type: BLOOD SPECIMENOrdering Facility: [facility] Address: [address] [place] [address] Performed By: #### 2 777-1, , 3, 56045-8 ####[facility]ORATORYCLIA [id number] [place] [address] [place] CO2 [Moles/Vol] 31 mmol/L High 22-30 [facility] Comment on above: Order Comment: Speci men Type: BLOOD SPECIMENOrdering Facility: [facility] Address: [address] [place] [address] Performed By: #### 2 777-1, , 3, 41333-5 ####[facility]ORATORYCLIA [id number] [place] [address] [place] Creatinine [Mass/Vol] 0.86 mg/dL Normal 0.58-0.96 [facility] Comment on above: Order Comment: Speci men Type: BLOOD SPECIMENOrdering Facility: [facility] Address: [address] [place] [id number] Performed By: #### 2 777-1, 46043-5, 3040-3, 28852-8 ####[facility] LABORATORYCLIA [id number] [place] [id number] [place] Creatinine and Glomerular filtration rate.predicted panel (S/P/Bld) 65 mL/min/1.73m??? Normal >=60 [facility] Comment on above: Order Comment: Christopher hurd Type: BLOOD SPECIMENOrdering Facility: [facility] Address: [address] [place] [address] Result Comment: Michael mated Glomerular Filtration Rate [...] actual GFR. Performed By: #### 2 777-1, 78797-2, 3040-3, 11612-6 ####[facility]ORATORYCLIA [id number] [place] [id number] [place] Glucose [Mass/Vol] 88 mg/dL Normal 74-99 [facility] Comment on above: Order Comment: Christopher hurd Type: BLOOD SPECIMENOrdering Facility: [facility] Address: [address] [address] Result Comment: The [employer] (ADA) provides guidance for cutoff [...] Standards of Medical Care in Diabetes 2016, [employer]. Diabetes Care. 2016.39(Suppl 1). Performed By: #### 2 777-1, 83989-8, 3040-3, 21415-8 ####[facility] LABORATORYCLIA [id number] [place] [address] [place] Potassium [Moles/Vol] 3.3 mmol/L Low 3.7-5.1 [facility] Comment on above: Order Comment: Speci men Type: BLOOD SPECIMENOrdering Facility: [facility] Address: [address] [address] Performed By: #### 2 777-1, 27460-4, 3040-3, 79569-2 ####[facility]ORATORYCLIA [id number] [place] [id number] [place] Protein [Mass/Vol] 5.2 g/dL Low 6.3-8.0 [facility] Comment on above: Order Comment: Speci men Type: BLOOD SPECIMENOrdering Facility: [facility] Address: [address] [place] [address] Performed By: #### 2 777-1, 36473-0, 3040-3, 75549-7 ####[facility] LABORATORYCLIA [id number] [place] [address] [place] Sodium [Moles/Vol] 138 mmol/L Normal 136-144 [facility] Comment on above: Order Comment: Speci men Type: BLOOD SPECIMENOrdering Facility: [facility] Address: [address] [place] [address] Performed By: #### 2 777-1, 35569-2, 3040-3, 86151-8 ####[facility]ORATORYCLIA [id number] [place] [address] [place] Urea nitrogen [Mass/Vol] 16 mg/dL Normal 7-21 [facility] Comment on above: Order Comment: Speci men Type: BLOOD SPECIMENOrdering Facility: [facility] Address: [address] [place] [address] Performed By: #### 2 777-1, 99932-4, 3040-3, 75124-6 ####[facility] LABORATORYCLIA [id number] [address] ED NOTEon 06-27-2024 ED NOTE HNO ID: [id number] Author: ROLA JIMENEZ, RN Service: Emergency Medicine Author Type: Registered Nurse Type: ED Notes Filed: 06/27/2024 16:39 Note Text: Pt placed on bedpan however did not have a bowel movement. Pads changed and pt given new sheet and pad. Some urine staining noted on pad. Normal [facility] ED NOTE HNO ID: [id number] Author: ROLA JIMENEZ, RN Service: Emergency Medicine Author Type: Registered Nurse Type: ED Notes Filed: 06/27/2024 14:44 Note Text: Pt eating lunch tray Normal [facility] ED NOTE HNO ID: [id number] Author: ROLA JIMENEZ RN Service: Emergency Medicine Author Type: Registered Nurse Type: ED Notes Filed: 06/27/2024 13:56 Note Text: Pt requested BP cuff be removed Normal [facility] ED NOTE HNO ID: [id number] Author: MARTHA KYLE RN Service: Nursing Author Type: Registered Nurse Type: ED Notes Filed: 06/27/2024 00:14 Note Text: Spoke with Dr. Hernandez about pts Bps. He is aware and did say looking through history this is what the pt typically runs. Will continue to monitor. Normal [facility] ED PROV NOTEon 06-27-2024 ED PROV NOTE HNO ID: [id number] Author: NORMA WONG MD Service: Emergency Medicine Author Type: Physician Type: ED Provider Notes Filed: 06/27/2024 02:43 Note Text: ED Resident Continuation of Care Note June 27, 2024 1:50 AM Joyce Solomon was endorsed to me by Dr. Concepcion. In brief, the patient is an 89-year-old female transfer from [place] for trauma. Found to have left 3-8 [...] Gertrudis Hernandez MD Emergency Medicine Resident, PGY-3 [facility] This note was created using Dropost.it dictation software. Every attempt was made to proofread, however you may find errors regardless of how insignificant they may be. They are purely unintentional and if there are any concerns regarding this dictation, please do not hesitate to call the dictating provider for clarification. GERTRUDIS HERNANDEZ 06/27/24 0152 MD MARVIN Camp KEVIN D 06/27/24 0243 Normal [facility] Ethanol SerPl-mCncon 025 Ethanol [Mass/Vol] mg/dL Normal <11 [facility] Comment on above: Order Comment: Speci men Type: BLOOD SPECIMENOrdering Facility: [facility] Address: [address] [place] [address] Performed By: #### 5 643-2 ####[facility] LABORATORYCLIA [id number] [place] [address] [place] HISTORY PHYSICALon HISTORY PHYSICAL HNO ID: [id number] Author: AYAZ DOE MD Service: General Surgery [...] involving digestive system(787.99) PAF (paroxysmal atrial fibrillation) ([facility]) 10/20/2013 Thyroid disorder PAST SURGICAL HISTORY Procedure Laterality Date APPENDECTOMY CHOLECYSTECTOMY (more content not included)... Normal [facility] HISTORY PHYSICAL HNO ID: [id number] Author: KAYLEEN BELTRAN MD Service: General Surgery Author Type: Physician Type: H&P Filed: 06/27/2024 14:21 Note Text: TRAUMA SURGERY HANDP [facility] ARRIVAL DATE: 06/26/2024 ARRIVAL TIME: PM [...] GI Upset States had GI bleed Adhes. Urth-Mzbv-En* Beets Rash raised injection site when allergy [...] involving digestive system(787.99) PAF (paroxysmal atrial fibrillation) ([facility]) 10/20/2013 Thyroid disorder PAST SURGICAL HISTORY Procedure [...] (more content not included)... Normal [facility] Lipase SerPl-cCncon 06-27-19 Lipase [Catalytic activity/Vol] 14 U/L Low 16- [facility] Comment on above: Order Comment: Christopher hurd Type: BLOOD SPECIMENOrdering Facility: [facility] Address: [address] [place] [address] Performed By: #### 2 777-1, 38379-0, 3040-3, 92162-3 ####[facility] LABORATORYCLIA [id number] [address] [place] Magnesium SerPl-mCncon 06-27 Magnesium [Mass/Vol] 1.7 mg/dL Normal 1.7-2.3 [facility] Comment on above: Order Comment: Christopher hurd Type: BLOOD SPECIMENOrdering Facility: [facility] Address: [address] [place] [address] Performed By: #### 2 777-1, 97112-1, 3040-3, 05350-8 ####[facility] LABORATORYCLIA [id number] [place] [address] [place] PT panel Coag (PPP)on 2024 INR Coag (PPP) [Relative time] 1.0 {INR} Normal 0.9-1.3 [facility] Comment on above: Order Comment: Christopher hurd Type: BLOOD SPECIMENOrdering Facility: [facility] Address: [address] [place] [address] Result Comment: Nathalie min K Antagonist (VKA) Therapeutic Range: INR 2 to 3 (Target INR of 2.5) Note: For patients treated with VKA drugs, such as warfarin, the [employer] 2012 Guideline recommends [...] Chest 2012, 141:7S-47S Cam RA, et al. [facility] 2017, 70: 252-289 Performed By: #### 1 4979-9, 61497-1 ####[facility]ENTERCLIA [id number] [place] [address] [place] PT Coag (PPP) [Time] 11.2 s Normal 9.7-13.0 [facility] Comment on above: Order Comment: Speci men Type: BLOOD SPECIMENOrdering Facility: [facility] Address: [address] [place] [address] Performed By: #### 1 4979-9, 72946-8 ####[facility]ENTERCLIA [id number] [place] [address] [place] Phosphate SerPl-mCncon 06-27 Phosphate [Mass/Vol] 3.5 mg/dL Normal 2.7-4.8 [facility] Comment on above: Order Comment: Speci men Type: BLOOD SPECIMENOrdering Facility: [facility] Address: [address] [place] [address] Performed By: #### 2 777-1, 73752-3, 3040-3, 72382-1 ####[facility] LABORATORYCLIA [id number] [place] [address] [place] STAPHYLOCOCCUS AUREUS AND MR SA SCREEN, PCR, NASALon 06-27-2024 S. aureus and MRSA panel RHYS+probe (Nose) Not detected Normal Not Detected [facility] Comment on above: Order Comment: Speci men Type: SWABOrdering Facility: [facility] Address: [address] [place] [address] Performed By: #### S APCR ####[facility] LABORATORYCLIA [id number] [address] OF [facility] TOXICOLOGY SCREEN, ROUTINE U RINEon 06-27-2024 Amphetamines Confirm (U) [Mass/Vol] Negative Normal Negative [facility] Comment on above: Order Comment: Speci men Type: URINE SPECIMENOrdering Facility: [facility] Address: [address] [place] [address] Result Comment: Cuto ff threshold at 1000 ng/mL. Performed By: #### U TOX2 ####[facility]ORATORYCLIA [id number] [address] OF [place] BARBITURATES, URINE Negative Normal Negative [facility] Comment on above: Order Comment: Speci men Type: URINE SPECIMENOrdering Facility: [facility] Address: [address] [place] [address] Result Comment: Cuto ff threshold at 200 ng/mL. Performed By: #### U TOX2 ####[facility]ORATORYCLIA [id number] [address] [place] BENZODIAZEPINES, UR Negative Normal Negative [facility] Comment on above: Order Comment: Speci men Type: URINE SPECIMENOrdering Facility: [facility] Address: [address] [place] [address] Result Comment: Cuto ff threshold at 200 ng/mL. Performed By: #### U TOX2 ####[facility]ORATORYCLIA [id number] [address] OF [facility] Cannabinoids Screen Ql (U) Negative Normal Negative [facility] Comment on above: Order Comment: Speci men Type: URINE SPECIMENOrdering Facility: [facility] Address: [address] [place] [address] Result Comment: Cuto ff threshold at 50 ng/mL. Performed By: #### U TOX2 ####[facility]ORATORYCLIA [id number] [place] [address] [place] Cocaine Ql (U) Negative Normal Negative [facility] Comment on above: Order Comment: Speci men Type: URINE SPECIMENOrdering Facility: [facility] Address: [address] [place] [address] Result Comment: Cuto ff threshold at 300 ng/mL. Performed By: #### U TOX2 ####[facility]ORATORYCLIA [id number] [address] OF [place] Ethanol (U) [Mass/Vol] <11 Normal <11 [facility] Comment on above: Order Comment: Speci men Type: URINE SPECIMENOrdering Facility: [facility] Address: [address] [place] [address] Performed By: #### U TOX2 ####[facility]ORATORYCLIA [id number] [address] Opiates Screen Ql (U) Negative Normal Negative [facility] Comment on above: Order Comment: Speci men Type: URINE SPECIMENOrdering Facility: [facility] Address: [address] [place] [address] Result Comment: Cuto ff threshold at 300 ng/mL. Performed By: #### U TOX2 ####[facility]ORATORYCLIA [id number] [address] OF [place] oxyCODONE cutoff Screen (U) [Mass/Vol] Negative Normal Negative [facility] Comment on above: Order Comment: Speci men Type: URINE SPECIMENOrdering Facility: [facility] Address: [address] [place] [address] Performed By: #### U TOX2 ####[facility]ORATORYCLIA [id number] [address] Phencyclidine Ql (U) Negative Normal Negative [facility] Comment on above: Order Comment: Speci men Type: URINE SPECIMENOrdering Facility: [facility] Address: [address] [place] [address] Result Comment: Cuto ff threshold at 25 ng/mL. Performed By: #### U TOX2 ####[facility] LABORATORYCLIA [id number] [address] OF [facility] TYPE + SCREENon 06-27-2024 ABO A Normal [facility] Comment on above: Order Comment: Speci men Type: BLOOD SPECIMENOrdering Facility: [facility] Address: [address] [place] [address] Performed By: #### T SCR ####[facility] BLOOD BANKCLIA [id number] [address] OF [facility] Rh Nom (Bld) Positive Normal [facility] Comment on above: Order Comment: Speci men Type: BLOOD SPECIMENOrdering Facility: [facility] Address: [address] [place] [address] Performed By: #### T SCR ####[facility] BLOOD BANKCLIA [id number] [address] TYPE AND SCREEN EXPIRATION 06/30/2024 23:59 Normal [facility] Comment on above: Order Comment: Speci men Type: BLOOD SPECIMENOrdering Facility: [facility] Address: [address] [place] [address] Performed By: #### T SCR ####[facility] BLOOD BANKCLIA [id number] [address] XR CHEST 2V FRONTAL/LATon XR CHEST 2V [...] described above. A follow-up exam is recommended. Criminal Justice Social Worker: CLINT Transcribe Date/Time: Jun 27 2024 4:05P Dictated by : DENYS RILEY MD This examination was interpreted and the report reviewed and electronically signed by: DENYS RILEY MD on Jun 27 2024 4:07PM EST [id number] CN Normal [facility] XR FOOT 3V AP/LAT/OBL LTon 0 [...] foreign body. IMPRESSION: No acute osseous abnormality. Criminal Justice Social Worker: [facility]PITALBrian Transcribe Date/Time: Jun 28 2024 7:40A Dictated by : VITO SALCIDO MD This examination was interpreted and the report reviewed and electronically signed by: VITO SALCIDO MD on Jun 28 2024 7:43AM EST [id number] CN Normal [facility] aPTT PPPon 06-27-2024 aPTT Coag (PPP) [Time] 25.9 s Normal 23.0-32.4 [facility] Comment on above: Order Comment: Speci men Type: BLOOD SPECIMENOrdering Facility: [facility] Address: [address] [place] [address] Performed By: #### 1 4979-9, 85552-4 ####[facility] LABORATORYCLIA [id number] [address] [place] 12 Lead EKGon 06-26-2024 12 Lead EKG Normal [facility] Absolute lymphocyte countOrd ered By: Jaiden Minal on 06-26-2024 Lymphocytes Auto (Unsp spec) [#/Vol] 0.91 10*3/uL 0.83-4.51 [facility] Absolute neutrophil countOrd ered By: Jaiden Fontaine on 06-26-2024 Absolute neutrophil count 5.7 X10^3/uL 2.0-7.7 [facility] Automated lymphocyte count a s percentage of total leukocytesOrdered By: Jaiden Fontaine on 06-26-2024 Lymphocytes/100 WBC Auto (Unsp spec) 12.4 % Low 19-41 [facility] Basic Metabolic Profile (BMP )on 06-26-2024 BUN/CRE 20.1 RATIO High 10-20 [facility] Comment on above: Order Comment: 'TROP ' Serial specimen #1, #2 or #3: 1 Performed By: #### L 100.0100, L501.4020, L500.2500 ####[facility] [address] [place], [address] CA,Total 9.7 mg/dL Normal 8.5-10.1 [facility] Comment on above: Order Comment: 'TROP ' Serial specimen #1, #2 or #3: 1 Performed By: #### L 100.0100, L501.4020, L500.2500 ####[facility] [address] [place], [address] Chloride [Moles/Vol] 97 mmol/L Low 98-107 [facility] Comment on above: Order Comment: 'TROP ' Serial specimen #1, #2 or #3: 1 Performed By: #### L 100.0100, L501.4020, L500.2500 ####[facility] [address] [place], [address] CO2 [Moles/Vol] 33.0 mmol/L High 21.0-32.0 [facility] Comment on above: Order Comment: 'TROP ' Serial specimen #1, #2 or #3: 1 Performed By: #### L 100.0100, L501.4020, L500.2500 ####[facility] [address] [place], [address] Creatinine [Mass/Vol] 0.89 mg/dL Normal 0.55-1.02 [facility] Comment on above: Order Comment: 'TROP ' Serial specimen #1, #2 or #3: 1 Result Comment: The validity of the calculated GFR GFRAA in patients over70 years has not been determined. Clinical correlation isessential. Performed By: #### L 100.0100, L501.4020, L500.2500 ####[facility] [address] [place], [address] ECRCL 39.73 ml/min Normal [facility] Comment on above: Order Comment: 'TROP ' Serial specimen #1, #2 or #3: 1 Performed By: #### L 100.0100, L501.4020, L500.2500 ####[facility] [address] [place], [address] EST GFR - AA 77 mL/min Normal >60 [facility] Comment on above: Order Comment: 'TROP ' Serial specimen #1, #2 or #3: 1 Result Comment: Afri can [place] GFR Calc Performed By: #### L 100.0100, L501.4020, L500.2500 ####[facility] [address] [place], [address] GAP 6 Normal 5-15 [facility] Comment on above: Order Comment: 'TROP ' Serial specimen #1, #2 or #3: 1 Performed By: #### L 100.0100, L501.4020, L500.2500 ####[facility] [address] [place], [address] GFR/1.73 sq M.predicted among non-blacks MDRD (S/P/Bld) [Vol rate/Area] 63 mL/min/{1.73_m2} Normal >60 [facility] Comment on above: Order Comment: 'TROP ' Serial specimen #1, #2 or #3: 1 Result Comment: Non- GFR Calc Performed By: #### L 100.0100, L501.4020, L500.2500 ####[facility] [address] [place], [address] Glucose [Mass/Vol] 114 mg/dL High 74-[address] [facility] Comment on above: Order Comment: 'TROP ' Serial specimen #1, #2 or #3: 1 Result Comment: Fast ing Glucose result from 100 to 125 mg/dLsuggests IMPAIRED HOMEOSTASIS per A.D.A. criteria. Performed By: #### L 100.0100, L501.4020, L500.2500 ####[facility] [address] [place], [address] Potassium [Moles/Vol] 3.8 mmol/L Normal 3.5-5.1 [facility] Comment on above: Order Comment: 'TROP ' Serial specimen #1, #2 or #3: 1 Performed By: #### L 100.0100, L501.4020, L500.2500 ####[facility] [address] [place], [address] Sodium [Moles/Vol] 136 mmol/L Normal 136-[address] [facility] Comment on above: Order Comment: 'TROP ' Serial specimen #1, #2 or #3: 1 Performed By: #### L 100.0100, L501.4020, L500.2500 ####[facility] [address] [place], [address] Urea nitrogen [Mass/Vol] 18 mg/dL Normal 7-18 [facility] Comment on above: Order Comment: 'TROP ' Serial specimen #1, #2 or #3: 1 Performed By: #### L 100.0100, L501.4020, L500.2500 ####[facility] [address] [place], [address] Basophil percentageOrdered B y: Jaiden Fontaine on 06-26-2024 Basophils/100 WBC (Bld) 0.7 % 0-[address] [facility] Bilirubin Test strip Ql (U)O rdered By: Jaiden Fontaine on 06-26-2024 Bilirubin Ql (U) Negative Negative [facility] Blood urea nitrogen (BUN)/cr eatinine ratioOrdered By: Jaiden Fontaine on 06-26-2024 Blood urea nitrogen (BUN)/creatinine ratio 20.1 RATIO High 10-20 [facility] Brain/Head without Contrasto n 06-26-2024 Brain/Head without Contrast Normal [facility] CBC W/Diff, Automatedon 06-12 Absolute Lymph 0.91 X10 3/uL Normal 0.83-4.51 [facility] Comment on above: Performed By: #### L 100.0100, L501.4020, L500.2500 ####[facility] [address] [place], [address] Absolute Neut 5.7 X10 3/uL Normal 2.0-7.7 [facility] Comment on above: Performed By: #### L 100.0100, L501.4020, L500.2500 ####[facility] [address] [place], [address] Basophils/100 WBC (Bld) 0.7 % Normal 0-[address] [facility] Comment on above: Performed By: #### L 100.0100, L501.4020, L500.2500 ####[facility] [address] [place], [address] Eosinophils/100 WBC (Bld) 0.7 % Normal 0-5 [facility] Comment on above: Performed By: #### L 100.0100, L501.4020, L500.2500 ####[facility] [address] [place], [address] Erythrocyte distribution width (RBC) [Ratio] 15.2 % High 11.6-14.6 [facility] Comment on above: Performed By: #### L 100.0100, L501.4020, L500.2500 ####[facility] [address] [place], [address] Hematocrit (Bld) [Volume fraction] 33.6 % Low 37-47 [facility] Comment on above: Performed By: #### L 100.0100, L501.4020, L500.2500 ####[facility] [address] [place], [address] Hemoglobin (Bld) [Mass/Vol] 10.6 g/dL Low 12.0-15.0 [facility] Comment on above: Performed By: #### L 100.0100, L501.4020, L500.2500 ####[facility] [address] [place], [address] IG% 1.000 High 0.0-0.9 [facility] Comment on above: Result Comment: IG% - Immature Granulocytes (promyelocytes, myelocytes andmetamyelocytes) > 1% indicates that a LEFT SHIFT is Present. Performed By: #### L 100.0100, L501.4020, L500.2500 ####[facility] [address] [place], [address] Lymphocytes/100 WBC (Bld) 12.4 % Low 19-41 [facility] Comment on above: Performed By: #### L 100.0100, L501.4020, L500.2500 ####[facility] [address] [place], [address] MCH (RBC) [Entitic mass] 29.9 pg Normal 27.0-32.0 [facility] Comment on above: Performed By: #### L 100.0100, L501.4020, L500.2500 ####[facility] [address] [place], [address] MCHC (RBC) [Mass/Vol] 31.5 g/dL Low 32-36 [facility] Comment on above: Performed By: #### L 100.0100, L501.4020, L500.2500 ####[facility] [address] [place], [address] MCV (RBC) [Entitic vol] 94.9 fL Normal 81-[address] [facility] Comment on above: Performed By: #### L 100.0100, L501.4020, L500.2500 ####[facility] [address] [place], [address] Monocytes/100 WBC (Bld) 7.7 % Normal 0-10 [facility] Comment on above: Performed By: #### L 100.0100, L501.4020, L500.2500 ####[facility] [address] [place], [address] Neutrophils/100 WBC (Bld) 77.5 % High 47-70 [facility] Comment on above: Performed By: #### L 100.0100, L501.4020, L500.2500 ####[facility] [address] [place], [address] Nucleated RBC (Bld) [#/Vol] 0 10*3/uL Normal 0-5 [facility] Comment on above: Performed By: #### L 100.0100, L501.4020, L500.2500 ####[facility] [address] [place], [address] Platelet mean volume (Bld) [Entitic vol] 9.2 fL Normal 6.2-12.0 [facility] Comment on above: Performed By: #### L 100.0100, L501.4020, L500.2500 ####[facility] [address] [place], [address] Platelets (Bld) [#/Vol] 289 10*3/uL Normal 150-450 [facility] Comment on above: Performed By: #### L 100.0100, L501.4020, L500.2500 ####[facility] [address] [place], [address] RBC (Bld) [#/Vol] 3.54 10*6/uL Low 4.2-5.[address] [facility] Comment on above: Performed By: #### L 100.0100, L501.4020, L500.2500 ####[facility] [address] [place], [address] RDW SD 53.1 fl High 35.1-43.9 [facility] Comment on above: Performed By: #### L 100.0100, L501.4020, L500.2500 ####[facility] [address] [place], [address] WBC (Bld) [#/Vol] 7.3 10*3/uL Normal 4.4-11.[address] [facility] Comment on above: Performed By: #### L 100.0100, L501.4020, L500.2500 ####[facility] [address] [place], [address] Calcium [Mass/Vol]Ordered By : Jaiden Fontaine on 06-26-2024 Serum or plasma calcium measurement (mass/volume) 9.7 mg/dL 8.5-10.1 [facility] Carbon dioxide measurementOr dered By: Jaiden Fontaine on 06-26-2024 CO2 [Moles/Vol] 33.0 mmol/L High 21.0-32.0 [facility] Carbon dioxide measurement 33.0 mmol/L High 21.0-32.0 [facility] Chest without Contraston Chest without Contrast Normal [facility] Chloride measurementOrdered By: Jaiden Fontaine on 06-26-2024 Chloride [Moles/Vol] 97 mmol/L Low 98-107 [facility] Chloride measurement 97 mmol/L Low 98-107 [facility] Clarity (U)Ordered By: Jaiden Fontaine on 06-26-2024 Urine clarity Clear Clear [facility] Color (U)Ordered By: Jaiden de jesus on 06-26-2024 Urine color determination Yellow Yellow [facility] Creatinine [Mass/Vol]Ordered By: Jaiden Fontaine on 06-26-2024 Serum or plasma creatinine measurement (mass/volume) 0.89 mg/dL 0.55-1.02 [facility] ED NOTEon 06-26-2024 ED NOTE HNO ID: [id number] Author: MARTHA KYLE, RN Service: Nursing Author Type: Registered Nurse Type: ED Notes Filed: 06/26/2024 20:33 Note Text: Pt asking and concerned about getting her night time medications Normal [facility] ED NOTE HNO ID: [id number] Author: MARTHA KYLE, RN Service: Nursing Author Type: Registered Nurse Type: ED Notes Filed: 06/26/2024 20:32 Note Text: Pt placed on case monitor, bp cuff and pulse ox attached. Pt is aANDox3. SENE[place]. R foot is wrapped with a walking shoe Normal [facility] ED NOTE HNO ID: [id number] Author: ZENOBIA VALDEZ RN Service: ? Author Type: Registered Nurse Type: ED Notes Filed: 06/26/2024 20:27 Note Text: Bed: 36-ED Expected date: Expected time: Means of arrival: Comments: TRANSFER Normal [facility] ED PROV NOTEon 06-26-2024 ED PROV NOTE HNO ID: [id number] Author: TAM SERVIN MD Service: Emergency Medicine Author Type: Physician Type: ED Provider Notes Filed: 06/27/2024 00:18 Note Text: ED CONTINUATION OF CARE NOTE Code Status: Prior Assumed care from: transfer from [place] for trauma consultation Presentation / Findings / Interventions / Plan / Items to Follow Up: 89 y/o F with hx of SAH, HTN, paroxsymal afib, restless leg syndrome, NEL on CPAP HS, mechanical fall on ASA presents as trauma consult transfer from [place] ED; had mechanical fall in AM falling [...] Hood Concepcion M.D. Emergency Medicine Resident, PGY-3 [facility] This note was created using Dropost.it dictation software. Every attempt was made to proofread, however you may find errors regardless of how insignificant they may be. They are purely unintentional and if there are any concerns regarding this dictation, please do not hesitate to call the dictating provider for clarification. ED Course as of 06/27/24 001 Others' Documentation Sat Jun 26, [address] Concepcion. 89-year-old female transfer from [place] for trauma. Found to have left 3-8 rib fractures. Right lower extremity weakness baseline. Likely trauma admission. [MM] ED Course User Index [MM] Gertrudis Hernandez MD Clinical Impressions as of 06/27/24 0013 Closed fracture of multiple ribs of left side, initial encounter Closed fracture of transverse process of lumbar vertebra, initial encounter (HCC) - L1-L2 SIGNATURE: Hood Concepcion MD PATIENT NAME: Joyce Solomon DATE: June 26, 2024 TIME: 9:22 PM PAGER/CONTACT #: [facility] 06/26/24 [id number] Attending Note I personally saw the patient [...] TAM SERVIN 06/27/24 0018 Normal [facility] Emergency Department Summary on 06-26-2024 Emergency Department Summary Normal [facility] Eosinophil percentageOrdered By: Jaiden Fontaine on 06-26-2024 Eosinophils/100 WBC (Bld) 0.7 % 0-5 [facility] Eosinophil percentage 0.7 % 0-1 [facility] Epithelial cells.squamous LM Ql (Urine sed)Ordered By: Jaiden Fontaine on 06-26-2024 Squamous epithelial cells detection in urine sediment by light microscopy 0-5 SEEN /hpf 5-10 [facility] Erythrocyte distribution wid th (RBC) [Ratio]Ordered By: Jaiden Fontaine on 06-26-2024 Erythrocyte distribution width ratio 15.2 % High 11.6-14.6 [facility] Erythrocyte distribution wid th ratioOrdered By: Jaiden Fontaine on 06-26-2024 Erythrocyte distribution width (RBC) [Ratio] 15.2 % High 11.6-14.6 [facility] Erythrocyte distribution wid th standard deviationOrdered By: Jaiden Fontaine on 06-26-2024 Erythrocyte distribution width (RBC) [Ratio] 53.1 fl High 35.1-43.9 [facility] Erythrocyte distribution width standard deviation 53.1 fl High 35.1-43.9 [facility] Estimated glomerular filtrat ion rate (GFR) AmericanOrdered By: Jaiden Fontaine on 06-26-2024 Estimated glomerular filtration rate (GFR) 77 mL/min >60 [facility] Estimation of creatinine mary ellen aranceOrdered By: Jaiden Fontaine on 06-26-2024 Estimation of creatinine clearance 39.73 ml/min [facility] Foot min 3 Viewson 5 Foot min 3 Views Normal [facility] Foot min 3 Views Normal [facility] Glomerular filtration rate ( GFR) estimationOrdered By: Jaiden Fontaine on 06-26-2024 GFR/1.73 sq M.predicted among non-blacks MDRD (S/P/Bld) [Vol rate/Area] 63 mL/min/{1.73_m2} >60 [facility] Glomerular filtration rate (GFR) estimation 63 mL/min >60 [facility] Glucose measurementOrdered B y: Jaiden Fontaine on 06-26-2024 Glucose [Mass/Vol] 114 mg/dL High 74-106 [facility] Glucose measurement 114 mg/dL High 74-106 [facility] Hematocrit Auto (Bld) [Volum e fraction]Ordered By: Jaiden Fontaine on 06-26-2024 Hematocrit (Bld) [Volume fraction] 33.6 % Low 37-47 [facility] Automated blood hematocrit (percentage) 33.6 % Low 37-47 [facility] Hemoglobin measurementOrdere d By: Jaiden Fontaine on 06-26-2024 Hemoglobin (Bld) [Mass/Vol] 10.6 g/dL Low 12.0-15.0 [facility] Hemoglobin measurement 10.6 g/dL Low 12.0-15.0 [facility] Immature granulocytes/100 WB C Auto (Bld)Ordered By: Jaiden Fontaine on 06-26-2024 Immature granulocytes/100 WBC (Bld) 1.000 % High 0.0-0.9 [facility] Automated immature granulocyte percentage 1.000 % High 0.0-0.9 [facility] Ketones Test strip Ql (U)Ord ered By: Jaiden Fontaine on 06-26-2024 Ketones Ql (U) Negative Negative [facility] L501.4020on 06-26-2024 TROPONIN-I HS 19 pg/mL Normal 3.0-54.0 [facility] Comment on above: Order Comment: 'TROP ' Serial specimen #1, #2 or #3: 1 Result Comment: Newton valdovinos Note: New Test Units and Gender Specific Reference Ranges. For more information see Policy Stat Procedure [place] High Sensitivity Troponin (TNIH) and attachments. Performed By: #### L 100.0100, L501.4020, L500.2500 ####[facility] [address] [place], [address] Lymphocytes Auto (Unsp spec) [#/Vol]Ordered By: Jaiden Fontaine on 06-26-2024 Absolute lymphocyte count 0.91 X10^3/uL 0.83-4.51 [facility] Lymphocytes/100 WBC Auto (Un sp spec)Ordered By: Jaiden Fontaine on 06-26-2024 Automated lymphocyte count as percentage of total leukocytes 12.4 % Low 19-41 [facility] MCV (RBC) [Entitic vol]Order ed By: Jaiden Fontaine on 06-26-2024 MCV (mean corpuscular volume) determination 94.9 fL 81-99 [facility] MCV (mean corpuscular volume ) determinationOrdered By: Jaiden Fontaine on 06-26-2024 MCV (RBC) [Entitic vol] 94.9 fL 81-[address] [facility] Mean corpuscular hemoglobin (MCH) determinationOrdered By: Jaiden Fontaine on 06-26-2024 MCH (RBC) [Entitic mass] 29.9 pg 27.0-32.0 [facility] Mean corpuscular hemoglobin (MCH) determination 29.9 pg 27.0-32.0 [facility] Mean corpuscular hemoglobin concentration (MCHC) determinationOrdered By: Jaiden Fontaine on 06-26-2024 Mean corpuscular hemoglobin concentration (MCHC) determination 31.5 g/dL Low 32-36 [facility] Mean platelet volume determi nationOrdered By: Jaiden Fontaine on 06-26-2024 Mean platelet volume determination 9.2 fl 6.2-12.0 [facility] Monocyte percentageOrdered B y: Jaiden Fontaine on 06-26-2024 Monocytes/100 WBC (Bld) 7.7 % 0-[address] [facility] Monocyte percentage 7.7 % 0-[address] [facility] Mucus LM Ql (Urine sed)Order ed By: Jaiden Fontaine on 06-26-2024 Mucus Ql (Urine sed) 0 SEEN /hpf [facility] Neutrophil percentageOrdered By: Jaiden Fontaine on 06-26-2024 Neutrophils/100 WBC (Bld) 77.5 % High 47-70 [facility] Neutrophil percentage 77.5 % High 47-70 [facility] Nitrite Test strip Ql (U)Ord ered By: Jaiden Fontaine on 06-26-2024 Nitrite Ql (U) Negative Negative [facility] Nucleated red blood cell per centageOrdered By: Jaiden Fontaine on 06-26-2024 Nucleated red blood cell percentage 0 % 0-5 [facility] Pelvis 1 or 2 Viewson 2024 Pelvis 1 or 2 Views [address] [facility] Platelet countOrdered By: Rm Fontaine on 06-26-2024 Platelets (Bld) [#/Vol] 289 10*3/uL 150-450 [facility] Platelet count 289 K/mm3 150-450 [facility] Potassium measurementOrdered By: Jaiden Fontaine on 06-26-2024 Potassium [Moles/Vol] 3.8 mmol/L 3.5-5.1 [facility] Potassium measurement 3.8 mmol/L 3.5-5.1 [facility] Protein Test strip Ql (U)Ord ered By: Jaiden Fontaine on 06-26-2024 Protein Ql (U) 15 mg/dl High Negative [facility] Urine protein assay by test strip, semi-quantitative 15 mg/dl High Negative [facility] RBC Auto (Bld) [#/Vol]Ordere d By: Jaiden Fontaine on 06-26-2024 RBC (Bld) [#/Vol] 3.54 10*6/uL Low 4.2-5.[address] [facility] Automated blood erythrocyte count 3.54 M/mm3 Low 4.2-5.4 [facility] Serum anion gap measurementO rdered By: Jaiden Fontaine on 06-26-2024 Serum anion gap measurement 6 5-15 [facility] Serum or plasma calcium manuel urement (mass/volume)Ordered By: Jaiden Fontaine on 06-26-2024 Calcium [Mass/Vol] 9.7 mg/dL 8.5-10.[address] [facility] Serum or plasma creatinine m easurement (mass/volume)Ordered By: Jaiden Fontaine on 06-26-2024 Creatinine [Mass/Vol] 0.89 mg/dL 0.55-1.02 [facility] Serum or plasma urea nitroge n measurement (mass/volume)Ordered By: Jaiden Fontaine on 06-26-2024 Urea nitrogen [Mass/Vol] 18 mg/dL 7-18 [facility] Shoulder min 2 Viewson 06-26 Shoulder min 2 Views Normal [facility] Sodium levelOrdered By: Jaiden Fontaine on 06-26-2024 Sodium [Moles/Vol] 136 mmol/L 136-[address] [facility] Sodium level 136 mmol/L 136-145 [facility] Specific gravity (U) [Rel de nsity]Ordered By: Jaiden Fontaine on 06-26-2024 Urine specific gravity measurement 1.010 1.002-1.030 [facility] Spine Cervical without Contr ason 06-26-2024 Spine Cervical without Contras Normal [facility] Squamous epithelial cells de tection in urine sediment by light microscopyOrdered By: Jaiden Fontaine on 06-26-2024 Epithelial cells.squamous LM Ql (Urine sed) 0-5 SEEN /hpf 5-10 [facility] Troponin IOrdered By: Jaiden kaye on 06-26-2024 Troponin I 19 pg/mL 3.0-54.0 [facility] Troponin I 19 pg/mL 3.0-54.0 [facility] Urea nitrogen [Mass/Vol]Orde red By: Jaiden Fontaine on 06-26-2024 Serum or plasma urea nitrogen measurement (mass/volume) 18 mg/dL 7-18 [facility] Urinalysis, Completeon 06-26 RBC 0 SEEN Normal 0-5 [facility] Comment on above: Order Comment: CLEAN CATCH Performed By: #### L 400.0001 ####[facility] [address] [place], [address] Urine clarityOrdered By: Lurdes Fontaine on 06-26-2024 Clarity (U) Clear Clear [facility] Urine color determinationOrd ered By: Jaiden Fontaine on 06-26-2024 Color (U) Yellow Yellow [facility] Urine glucose detectionOrder ed By: Jaiden Fontaine on 06-26-2024 Glucose Ql (U) Normal mg/dl Normal [facility] Urine glucose detection Normal mg/dl Normal [facility] Urine leukocyte esterase det ection by dipstickOrdered By: Jaiden Fontaine on 06-26-2024 Leukocyte esterase Test strip Ql (U) Negative Negative [facility] Urine pHOrdered By: Jaiden adame on 06-26-2024 pH (U) 6.5 [pH] 5.0 - 8.0 [facility] Urine sediment bacteria coun t by microscopy (number/high power field)Ordered By: Jaiden Fontaine on 06-26-2024 Bacteria LM.HPF (Urine sed) [#/Area] 0 /[HPF] None Seen [facility] Urine specific gravity measu rementOrdered By: Jaiden Fontaine on 06-26-2024 Specific gravity (U) [Rel density] 1.010 1.002-1.030 [facility] Urine total bilirubin detect ion by test stripOrdered By: Jaiden Fontaine on 06-26-2024 Urine total bilirubin detection by test strip Negative Negative [facility] Urine urobilinogen measureme ntOrdered By: Jaiden Fontaine on 06-26-2024 Urobilinogen Ql (U) Normal mg/dl Normal [facility] White blood cell (WBC) count Ordered By: Jaiden Fontaine on 06-26-2024 WBC (Bld) [#/Vol] 7.3 10*3/uL 4.4-11.[address] [facility] White blood cell (WBC) count 7.3 K/mm3 4.4-11.0 [facility] White blood cell countOrdere d By: Jaiden Fontaine on 06-26-2024 White blood cell count 0 SEEN /hpf 0-[address] [facility] White blood cell count 0 SEEN /hpf [facility] pH (U)Ordered By: Jaiden do on 06-26-2024 Urine pH 6.5 5.0 - 8.0 [facility] Basic Metabolic Profile (BMP )on 06-21-2024 BUN/CRE 29.8 RATIO High 10-20 [facility] Comment on above: Order Comment: Order Date: 06/21/24Order Info: 06-1 - BMPOrder Info: [id number] - FEOrder Info: [id number] - OSCAR Performed By: #### L 503.6550, L500.2500, L100.9950, L503.6150, L100.0500 ####[facility] [address] [place], [place], [id number] CA,Total 9.6 mg/dL Normal 8.5-10.1 [facility] Comment on above: Order Comment: Order Date: 06/21/24Order Info: [id number]- - BMPOrder Info: [id number] FEOrder Info: [id number] - OSCAR Performed By: #### L 503.6550, L500.2500, L100.9950, L503.6150, L100.0500 ####[facility] [address] [place], [address] Chloride [Moles/Vol] 100 mmol/L Normal 98-107 [facility] Comment on above: Order Comment: Order Date: 06/21/24Order Info: [id number] - BMPOrder Info: [id number] - FEOrder Info: [id number] - OSCAR Performed By: #### L 503.6550, L500.2500, L100.9950, L503.6150, L100.0500 ####[facility] [address] [place], [address] CO2 [Moles/Vol] 30.0 mmol/L Normal 21.0-32.0 [facility] Comment on above: Order Comment: Order Date: 06/21/24Order Info: 06- - BMPOrder Info: [id number] FEOrder Info: [id number] - OSCAR Performed By: #### L 503.6550, L500.2500, L100.9950, L503.6150, L100.0500 ####[facility] [address] [place], [address] Creatinine [Mass/Vol] 1.04 mg/dL High 0.55-1.02 [facility] Comment on above: Order Comment: Order Date: 06/21/24Order Info: 666-05 - BMPOrder Info: [id number] FEOrder Info: [id number] - OSCAR Result Comment: The validity of the calculated GFR GFRAA in patients over70 years has not been determined. Clinical correlation isessential. Performed By: #### L 503.6550, L500.2500, L100.9950, L503.6150, L100.0500 ####[facility] [address] [place], [address] EST GFR - AA 64 mL/min Normal >60 [facility] Comment on above: Order Comment: Order Date: 06/21/24Order Info: 06- - BMPOrder Info: [id number] - FEOrder Info: [id number] - SOCAR Result Comment: Afri can Armenian GFR Calc Performed By: #### L 503.6550, L500.2500, L100.9950, L503.6150, L100.0500 ####[facility] [address] [place], [address] GAP 8 Normal 5-15 [facility] Comment on above: Order Comment: Order Date: 06/21/24Order Info: 666-05 - BMPOrder Info: [id number] - FEOrder Info: [id number] - OSCAR Performed By: #### L 503.6550, L500.2500, L100.9950, L503.6150, L100.0500 ####[facility] [address] [place], [address] GFR/1.73 sq M.predicted among non-blacks MDRD (S/P/Bld) [Vol rate/Area] 53 mL/min/{1.73_m2} Low >60 [facility] Comment on above: Order Comment: Order Date: 06/21/24Order Info: 666-05 - BMPOrder Info: 2497-08 - FEOrder Info: [id number] - OSCAR Result Comment: Non- GFR Calc Performed By: #### L 503.6550, L500.2500, L100.9950, L503.6150, L100.0500 ####[facility] [address] [place], [address] Glucose [Mass/Vol] 96 mg/dL Normal 74-[address] [facility] Comment on above: Order Comment: Order Date: 06/21/24Order Info: 666-05 - BMPOrder Info: 2497-08 - FEOrder Info: [id number] - OSCAR Performed By: #### L 503.6550, L500.2500, L100.9950, L503.6150, L100.0500 ####[facility] [address] [place], [address] Potassium [Moles/Vol] 4.5 mmol/L Normal 3.5-5.1 [facility] Comment on above: Order Comment: Order Date: 06/21/24Order Info: 666-05 - BMPOrder Info: 2497-08 FEOrder Info: [id number] - OSCAR Performed By: #### L 503.6550, L500.2500, L100.9950, L503.6150, L100.0500 ####[facility] [address] [place], [address] Sodium [Moles/Vol] 138 mmol/L Normal 136-[address] [facility] Comment on above: Order Comment: Order Date: 06/21/24Order Info: 0667- - BMPOrder Info: [id number] FEOrder Info: [id number] - OSCAR Performed By: #### L 503.6550, L500.2500, L100.9950, L503.6150, L100.0500 ####[facility] [address] [place], [address] Urea nitrogen [Mass/Vol] 31 mg/dL High 7-18 [facility] Comment on above: Order Comment: Order Date: 06/21/24Order Info: 0667- - BMPOrder Info: [id number] - FEOrder Info: [id number] - OSCAR Performed By: #### L 503.6550, L500.2500, L100.9950, L503.6150, L100.0500 ####[facility] [address], [address] BUN Normal 7-18 [facility] Comment on above: Result Comment: Canc elled via OM: Order cancelled - Patient discharged Performed By: #### L 500.2500, L100.0100 ####[facility] [address] [place], [address] BUN/CRE Normal 10-20 [facility] Comment on above: Result Comment: Canc elled via OM: Order cancelled - Patient discharged Performed By: #### L 500.2500, L100.0100 ####[facility] [address] [place], [address] CA,Total Normal 8.5-10.1 [facility] Comment on above: Result Comment: Canc elled via OM: Order cancelled - Patient discharged Performed By: #### L 500.2500, L100.0100 ####[facility] [address] [place], [address] CL Normal 98-107 [facility] Comment on above: Result Comment: Canc elled via OM: Order cancelled - Patient discharged Performed By: #### L 500.2500, L100.0100 ####[facility] [address] [place], [address] CO2 Normal 21.0-32.0 [facility] Comment on above: Result Comment: Canc elled via OM: Order cancelled - Patient discharged Performed By: #### L 500.2500, L100.0100 ####[facility] [address] [place], [address] CREAT,SERUM Normal 0.55-1.02 [facility] Comment on above: Result Comment: Canc elled via OM: Order cancelled - Patient discharged Performed By: #### L 500.2500, L100.0100 ####[facility] [address] [place], [address] EST GFR Normal >60 [facility] Comment on above: Result Comment: Canc elled via OM: Order cancelled - Patient discharged Performed By: #### L 500.2500, L100.0100 ####[facility] [address] [place], [address] EST GFR - AA Normal >60 [facility] Comment on above: Result Comment: Canc elled via OM: Order cancelled - Patient discharged Performed By: #### L 500.2500, L100.0100 ####[facility] [address] [place], [address] GAP Normal 5-15 [facility] Comment on above: Result Comment: Canc elled via OM: Order cancelled - Patient discharged Performed By: #### L 500.2500, L100.0100 ####[facility] [address] [place], [address] GLU Normal 74-106 [facility] Comment on above: Result Comment: Canc elled via OM: Order cancelled - Patient discharged Performed By: #### L 500.2500, L100.0100 ####[facility] [address] [place], [address] Potassium Normal 3.5-5.1 [facility] Comment on above: Result Comment: Canc elled via OM: Order cancelled - Patient discharged Performed By: #### L 500.2500, L100.0100 ####[facility] [address] [place], [address] Basic Metabolic Profile (BMP) Normal 136-145 [facility] Comment on above: Result Comment: Canc elled via OM: Order cancelled - Patient discharged Performed By: #### L 500.2500, L100.0100 ####[facility] [address] [place], [address] Blood urea nitrogen (BUN)/cr eatinine ratioOrdered By: Bridget Swenson on 06-21-2024 Blood urea nitrogen (BUN)/creatinine ratio 29.8 RATIO High 10-20 [facility] CBC W/Diff, Automatedon 06-12 Absolute Neut Normal 2.0-7.7 [facility] Comment on above: Result Comment: Canc elled via OM: Order cancelled - Patient discharged Performed By: #### L 500.2500, L100.0100 ####[facility] [address] [place], [address] HCT Normal 37-47 [facility] Comment on above: Result Comment: Canc elled via OM: Order cancelled - Patient discharged Performed By: #### L 500.2500, L100.0100 ####[facility] [address] [place], [address] HGB Normal 12.0-15.0 [facility] Comment on above: Result Comment: Canc elled via OM: Order cancelled - Patient discharged Performed By: #### L 500.2500, L100.0100 ####[facility] [address] [place], [address] MCH Normal 27.0-32.0 [facility] Comment on above: Result Comment: Canc elled via OM: Order cancelled - Patient discharged Performed By: #### L 500.2500, L100.0100 ####[facility] [address] [place], [address] MCHC Normal 32-36 [facility] Comment on above: Result Comment: Canc elled via OM: Order cancelled - Patient discharged Performed By: #### L 500.2500, L100.0100 ####[facility] [address] [place], [address] MCV Normal 81-99 [facility] Comment on above: Result Comment: Canc elled via OM: Order cancelled - Patient discharged Performed By: #### L 500.2500, L100.0100 ####[facility] [address] [place], [address] NEUT% Normal 47-70 [facility] Comment on above: Result Comment: Canc elled via OM: Order cancelled - Patient discharged Performed By: #### L 500.2500, L100.0100 ####[facility] [address] [place], [address] PLT Normal 150-450 [facility] Comment on above: Result Comment: Canc elled via OM: Order cancelled - Patient discharged Performed By: #### L 500.2500, L100.0100 ####[facility] [address] [place], [address] RBC Normal 4.2-5.4 [facility] Comment on above: Result Comment: Canc elled via OM: Order cancelled - Patient discharged Performed By: #### L 500.2500, L100.0100 ####[facility] [address] [place], [address] RDW CV Normal 11.6-14.6 [facility] Comment on above: Result Comment: Canc elled via OM: Order cancelled - Patient discharged Performed By: #### L 500.2500, L100.0100 ####[facility] [address] [place], [address] RDW SD Normal 35.1-43.9 [facility] Comment on above: Result Comment: Canc elled via OM: Order cancelled - Patient discharged Performed By: #### L 500.2500, L100.0100 ####[facility] [address] [place], [address] WBC Normal 4.4-11.0 [facility] Comment on above: Result Comment: Canc elled via OM: Order cancelled - Patient discharged Performed By: #### L 500.2500, L100.0100 ####[facility] [address] [place], [address] CBC-Complete Blood Cnt No Di ffon 06-21-2024 Erythrocyte distribution width (RBC) [Ratio] 15.7 % High 11.6-14.6 [facility] Comment on above: Order Comment: Order Date: 06/21/24Order Info: [id number] - CBCOrder Info: [id number] - RETIC Performed By: #### L 503.6550, L500.2500, L100.9950, L503.6150, L100.0500 ####[facility] [address] [place], [address] Hematocrit (Bld) [Volume fraction] 31.8 % Low 37-47 [facility] Comment on above: Order Comment: Order Date: 06/21/24Order Info: [id number] - CBCOrder Info: [id number] - RETIC Performed By: #### L 503.6550, L500.2500, L100.9950, L503.6150, L100.0500 ####[facility] [address] [place], [address] Hemoglobin (Bld) [Mass/Vol] 10.0 g/dL Low 12.0-15.0 [facility] Comment on above: Order Comment: Order Date: 06/21/24Order Info: [id number] - CBCOrder Info: [id number] - RETIC Performed By: #### L 503.6550, L500.2500, L100.9950, L503.6150, L100.0500 ####[facility] [address] [place], [address] MCH (RBC) [Entitic mass] 29.9 pg Normal 27.0-32.0 [facility] Comment on above: Order Comment: Order Date: 06/21/24Order Info: [id number] - CBCOrder Info: [id number] - RETIC Performed By: #### L 503.6550, L500.2500, L100.9950, L503.6150, L100.0500 ####[facility] [address] [place], [address] MCHC (RBC) [Mass/Vol] 31.4 g/dL Low 32-36 [facility] Comment on above: Order Comment: Order Date: 06/21/24Order Info: [id number] - CBCOrder Info: [id number] - RETIC Performed By: #### L 503.6550, L500.2500, L100.9950, L503.6150, L100.0500 ####[facility] [address] [place], [address] MCV (RBC) [Entitic vol] 94.9 fL Normal 81-[address] [facility] Comment on above: Order Comment: Order Date: 06/21/24Order Info: [id number] - CBCOrder Info: [id number] - RETIC Performed By: #### L 503.6550, L500.2500, L100.9950, L503.6150, L100.0500 ####[facility] [address] [place], [address] Platelet mean volume (Bld) [Entitic vol] 9.6 fL Normal 6.2-12.0 [facility] Comment on above: Order Comment: Order Date: 06/21/24Order Info: [id number] - CBCOrder Info: [id number] - RETIC Performed By: #### L 503.6550, L500.2500, L100.9950, L503.6150, L100.0500 ####[facility] [address] [place], [address] Platelets (Bld) [#/Vol] 328 10*3/uL Normal 150-450 [facility] Comment on above: Order Comment: Order Date: 06/21/24Order Info: [id number] - CBCOrder Info: [id number] - RETIC Performed By: #### L 503.6550, L500.2500, L100.9950, L503.6150, L100.0500 ####[facility] [address] [place], [address] RBC (Bld) [#/Vol] 3.35 10*6/uL Low 4.2-5.[address] [facility] Comment on above: Order Comment: Order Date: 06/21/24Order Info: [id number] - CBCOrder Info: [id number] - RETIC Performed By: #### L 503.6550, L500.2500, L100.9950, L503.6150, L100.0500 ####[facility] [address] [place], [address] RDW SD 54.6 fl High 35.1-43.9 [facility] Comment on above: Order Comment: Order Date: 06/21/24Order Info: [id number] - CBCOrder Info: [id number] - RETIC Performed By: #### L 503.6550, L500.2500, L100.9950, L503.6150, L100.0500 ####[facility] [address] [place], [address] WBC (Bld) [#/Vol] 6.1 10*3/uL Normal 4.4-11.[address] [facility] Comment on above: Order Comment: Order Date: 06/21/24Order Info: [id number] - CBCOrder Info: [id number] - RETIC Performed By: #### L 503.6550, L500.2500, L100.9950, L503.6150, L100.0500 ####[facility] [address] [place], [address] Calcium [Mass/Vol]Ordered By : Bridget Swenson on 06-21-2024 Serum or plasma calcium measurement (mass/volume) 9.6 mg/dL 8.5-10.1 [facility] Carbon dioxide measurementOr dered By: Bridget Swenson on 06-21-2024 CO2 [Moles/Vol] 30.0 mmol/L 21.0-32.0 [facility] Carbon dioxide measurement 30.0 mmol/L 21.0-32.0 [facility] Chloride measurementOrdered By: Bridget Swenson on 06-21-2024 Chloride [Moles/Vol] 100 mmol/L 98-107 [facility] Chloride measurement 100 mmol/L 98-107 [facility] Creatinine [Mass/Vol]Ordered By: Bridget Swenson on 06-21-2024 Serum or plasma creatinine measurement (mass/volume) 1.04 mg/dL High 0.55-1.02 [facility] Erythrocyte distribution wid th (RBC) [Ratio]Ordered By: Bridget Swenson on 06-21-2024 Erythrocyte distribution width ratio 15.7 % High 11.6-14.6 [facility] Erythrocyte distribution wid th ratioOrdered By: Bridget Swenson on 06-21-2024 Erythrocyte distribution width (RBC) [Ratio] 15.7 % High 11.6-14.6 [facility] Erythrocyte distribution wid th standard deviationOrdered By: Bridget Swenson on 06-21-2024 Erythrocyte distribution width (RBC) [Ratio] 54.6 fl High 35.1-43.9 [facility] Erythrocyte distribution width standard deviation 54.6 fl High 35.1-43.9 [facility] Estimated glomerular filtrat ion rate (GFR) AmericanOrdered By: Bridget Swenson on 06-21-2024 Estimated glomerular filtration rate (GFR) 64 mL/min >60 [facility] Ferritinon 06-21-2024 Ferritin [Mass/Vol] 427 ng/mL High 8-[address] [facility] Comment on above: Order Comment: Order Date: 06/21/24Order Info: [id number] - BMPOrder Info: [id number] - FEOrder Info: [id number] - OSCAR Performed By: #### L 503.6550, L500.2500, L100.9950, L503.6150, L100.0500 ####[facility] [address] [place], [address] Ferritin measurementOrdered By: Bridget Swenson on 06-21-2024 Ferritin measurement 427 ng/mL High 8-252 [facility] Glomerular filtration rate ( GFR) estimationOrdered By: Bridget Swenson on 06-21-2024 GFR/1.73 sq M.predicted among non-blacks MDRD (S/P/Bld) [Vol rate/Area] 53 mL/min/{1.73_m2} Low >60 [facility] Glomerular filtration rate (GFR) estimation 53 mL/min Low >60 [facility] Glucose measurementOrdered B y: Bridget Swenson on 06-21-2024 Glucose [Mass/Vol] 96 mg/dL 74-[address] [facility] Glucose measurement 96 mg/dL 74-[address] [facility] Hematocrit Auto (Bld) [Volum e fraction]Ordered By: Bridget Swenson on 06-21-2024 Hematocrit (Bld) [Volume fraction] 31.8 % Low 37-47 [facility] Automated blood hematocrit (percentage) 31.8 % Low 37-47 [facility] Hemoglobin (Reticulocytes) [ Entitic mass]Ordered By: Bridget Swenson on 06-21-2024 Reticulocyte hemoglobin equivalent (RET-He) measurement 34.5 pg 30-35 [facility] Hemoglobin measurementOrdere d By: Bridget Swenson on 06-21-2024 Hemoglobin (Bld) [Mass/Vol] 10.0 g/dL Low 12.0-15.0 [facility] Hemoglobin measurement 10.0 g/dL Low 12.0-15.0 [facility] Immature reticulocyte fracti onOrdered By: Bridget Swenson on 06-21-2024 Immature reticulocyte fraction 7.00 % 3.00-15.90 [facility] Ironon 06-21-2024 Iron [Mass/Vol] 67 ug/dL Normal 50-170 [facility] Comment on above: Order Comment: Order Date: 06/21/24Order Info: [id number] - BMPOrder Info: [id number] - FEOrder Info: [id number] - OSCAR Performed By: #### L 503.6550, L500.2500, L100.9950, L503.6150, L100.0500 ####[facility] [address] [place], [address] Iron (Unsp spec) [Mass/Mass] Ordered By: Bridget Swenson on 06-21-2024 Iron measurement (mass/mass) 67 ug/dL 50-170 [facility] Iron measurement (mass/mass) Ordered By: Bridget Swenson on 06-21-2024 Iron (Unsp spec) [Mass/Mass] 67 ug/dL 50-170 [facility] MCV (RBC) [Entitic vol]Order ed By: Bridget Swenson on 06-21-2024 MCV (mean corpuscular volume) determination 94.9 fL 81-99 [facility] MCV (mean corpuscular volume ) determinationOrdered By: Bridget Swenson on 06-21-2024 MCV (RBC) [Entitic vol] 94.9 fL 81-99 [facility] Mean corpuscular hemoglobin (MCH) determinationOrdered By: Bridget Swenson on 06-21-2024 MCH (RBC) [Entitic mass] 29.9 pg 27.0-32.0 [facility] Mean corpuscular hemoglobin (MCH) determination 29.9 pg 27.0-32.0 [facility] Mean corpuscular hemoglobin concentration (MCHC) determinationOrdered By: Bridget Swenson on 06-21-2024 Mean corpuscular hemoglobin concentration (MCHC) determination 31.4 g/dL Low 32-36 [facility] Mean platelet volume determi nationOrdered By: Bridget Swenson on 06-21-2024 Mean platelet volume determination 9.6 fl 6.2-12.0 [facility] Platelet countOrdered By: Zack Swenson on 06-21-2024 Platelets (Bld) [#/Vol] 328 10*3/uL 150-450 [facility] Platelet count 328 K/mm3 150-450 [facility] Potassium measurementOrdered By: Bridget Swenson on 06-21-2024 Potassium [Moles/Vol] 4.5 mmol/L 3.5-5.1 [facility] Potassium measurement 4.5 mmol/L 3.5-5.1 [facility] RBC Auto (Bld) [#/Vol]Ordere d By: Bridget Swenson on 06-21-2024 RBC (Bld) [#/Vol] 3.35 10*6/uL Low 4.2-5.[address] [facility] Automated blood erythrocyte count 3.35 M/mm3 Low 4.2-5.4 [facility] Retic Panelon 06-21-2024 IM RET FRACTION 7.00 Normal 3.00-15.90 [facility] Comment on above: Order Comment: Order Date: 06/21/24Order Info: [id number] - CBCOrder Info: [id number] - RETIC Performed By: #### L 503.6550, L500.2500, L100.9950, L503.6150, L100.0500 ####[facility] [address] [place], [place], [id number] RET-HE 34.5 pg Normal 30-35 [facility] Comment on above: Order Comment: Order Date: 06/21/24Order Info: [id number] - CBCOrder Info: [id number] - RETIC Performed By: #### L 503.6550, L500.2500, L100.9950, L503.6150, L100.0500 ####[facility] [address] [place], [place], [address] Retic Count 1.34 Normal 0.5-1.5 [facility] Comment on above: Order Comment: Order Date: 06/21/24Order Info: [id number] - CBCOrder Info: [id number] - RETIC Performed By: #### L 503.6550, L500.2500, L100.9950, L503.6150, L100.0500 ####[facility] [address] [place], [place], [address] Reticulocyte hemoglobin equi valent (RET-He) measurementOrdered By: Bridget Swenson on 06-21-2024 Hemoglobin (Reticulocytes) [Entitic mass] 34.5 pg 30-35 [facility] Reticulocytes Auto (Bld) [#/ Vol]Ordered By: Bridget Swenson on 06-21-2024 Reticulocytes/100 RBC (Bld) 1.34 % 0.5-1.5 [facility] Automated blood reticulocytes count (number/volume) 1.34 % 0.5-1.5 [facility] Serum anion gap measurementO rdered By: Bridget Swenson on 06-21-2024 Serum anion gap measurement 8 5-15 [facility] Serum or plasma calcium manuel urement (mass/volume)Ordered By: Bridget Swenson on 06-21-2024 Calcium [Mass/Vol] 9.6 mg/dL 8.5-10.[address] [facility] Serum or plasma creatinine m easurement (mass/volume)Ordered By: Bridget Swenson on 06-21-2024 Creatinine [Mass/Vol] 1.04 mg/dL High 0.55-1.02 [facility] Serum or plasma urea nitroge n measurement (mass/volume)Ordered By: Bridget Swenson on 06-21-2024 Urea nitrogen [Mass/Vol] 31 mg/dL High 7-18 [facility] Sodium levelOrdered By: Zenaida Swenson on 06-21-2024 Sodium [Moles/Vol] 138 mmol/L 136-[address] [facility] Sodium level 138 mmol/L 136-145 [facility] Urea nitrogen [Mass/Vol]Orde red By: Bridget Swenson on 06-21-2024 Serum or plasma urea nitrogen measurement (mass/volume) 31 mg/dL High 7-18 [facility] White blood cell (WBC) count Ordered By: Bridget Swenson on 06-21-2024 WBC (Bld) [#/Vol] 6.1 10*3/uL 4.4-11.[address] [facility] White blood cell (WBC) count 6.1 K/mm3 4.4-11.0 [facility] CNOVon 06-15-2024 CNOV Office Visit (CVAKPO) JOYCE SOLOMON ([id number]) 1935 F CHT Date Time Provider Department 06/15/24 11:00 AM JESSA RETANA During your visit today, we recorded the following information about you: Pulse Blood pressure Weight Height 84/minute 171/44 73.5 kg 1.524 m Jessa Retana APRN.CORPORATE CONSULTANT 06/29/2024 2:01 AM Signed [facility] Established Visit PCP: Bridget Swenson ([facility]) [address] [phone] CEREBROVASCULAR HISTORY Joyce Solomon (Fran) is a 89 year old female who presents for neurologic evaluation following recent hospitalization for acute SAH (05/11/2024-05/16/2024 ). Stroke Event Information Harjit Solomon is a 89 yo F w/ PMH HTN, HLD, pAF on warfarin, NEL on CPAP, osteoporosis, secondary hypothyroidism transferred from [place] ED May 11, 2024 for ICH monitoring. [...] transferred to NICU for continuation of care. 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 Notes residual slurred speech, left side weakness, [...] involving digestive system(787.99) PAF (paroxysmal atrial fibrillation) ([facility]) 10/20/2013 Thyroid disorder PAST SURGICAL HISTORY Procedure Laterality Date APPENDECTOMY CHOLECYSTECTOMY COLONOSCOPY FLX DX W/COLLJ SPEC WHEN PFRMD 2-1-07 Repeat in COLONOSCOPY FLX DX W/COLLJ SPEC [...] (more content not included)... Normal [facility] Absolute lymphocyte countOrd ered By: Aleks Marshall on 06-14-2024 Lymphocytes Auto (Unsp spec) [#/Vol] 1.51 10*3/uL 0.83-4.51 [facility] Absolute neutrophil countOrd ered By: Aleks Marshall on 06-14-2024 Absolute neutrophil count 3.0 X10^3/uL 2.0-7.7 [facility] Automated lymphocyte count a s percentage of total leukocytesOrdered By: Aleks Marshall on 06-14-2024 Lymphocytes/100 WBC Auto (Unsp spec) 26.8 % 19-41 [facility] Basic Metabolic Profile (BMP )on 06-14-2024 BUN/CRE 36.6 RATIO High 10-20 [facility] Comment on above: Performed By: #### L 100.0100, L500.2500 ####[facility] [address] [place], [address] CA,Total 8.9 mg/dL Normal 8.5-10.1 [facility] Comment on above: Performed By: #### L 100.0100, L500.2500 ####[facility] [address] [place], [address] Chloride [Moles/Vol] 101 mmol/L Normal 98-107 [facility] Comment on above: Performed By: #### L 100.0100, L500.2500 ####[facility] [address] [place], [address] CO2 [Moles/Vol] 24.0 mmol/L Normal 21.0-32.0 [facility] Comment on above: Performed By: #### L 100.0100, L500.2500 ####[facility] [address] [place], [address] Creatinine [Mass/Vol] 0.82 mg/dL Normal 0.55-1.02 [facility] Comment on above: Result Comment: The validity of the calculated GFR GFRAA in patients over70 years has not been determined. Clinical correlation isessential. Performed By: #### L 100.0100, L500.2500 ####[facility] [address] [place], [address] ECRCL 43.24 ml/min Normal [facility] Comment on above: Performed By: #### L 100.0100, L500.2500 ####[facility] [address] [place], [address] EST GFR - AA 85 mL/min Normal >60 [facility] Comment on above: Result Comment: Afri can Armenian GFR Calc Performed By: #### L 100.0100, L500.2500 ####[facility] [address] [place], [address] GAP 7 Normal 5-15 [facility] Comment on above: Performed By: #### L 100.0100, L500.2500 ####[facility] [address] [place], [address] GFR/1.73 sq M.predicted among non-blacks MDRD (S/P/Bld) [Vol rate/Area] 70 mL/min/{1.73_m2} Normal >60 [facility] Comment on above: Result Comment: Non- GFR Calc Performed By: #### L 100.0100, L500.2500 ####[facility] [address] [place], [address] Glucose [Mass/Vol] 95 mg/dL Normal 74-[address] [facility] Comment on above: Performed By: #### L 100.0100, L500.2500 ####[facility] [address] [place], [address] Potassium [Moles/Vol] 4.6 mmol/L Normal 3.5-5.1 [facility] Comment on above: Performed By: #### L 100.0100, L500.2500 ####[facility] [address] [place], [address] Sodium [Moles/Vol] 132 mmol/L Low 136-[address] [facility] Comment on above: Performed By: #### L 100.0100, L500.2500 ####[facility] [address] [place], [address] Urea nitrogen [Mass/Vol] 30 mg/dL High 7-18 [facility] Comment on above: Performed By: #### L 100.0100, L500.2500 ####[facility] [address] [place], [address] Basophil percentageOrdered B y: Aleks Marshall on 06-14-2024 Basophils/100 WBC (Bld) 0.9 % 0-[address] [facility] Basophil percentage 0.9 % 0-[address] [facility] Blood urea nitrogen (BUN)/cr eatinine ratioOrdered By: Aleks Marshall on 06-14-2024 Blood urea nitrogen (BUN)/creatinine ratio 36.6 RATIO High 10-20 [facility] Brain/Head without Contrasto n 06-14-2024 Brain/Head without Contrast Normal [facility] CBC W/Diff, Automatedon 02-0 Absolute Lymph 1.51 X10 3/uL Normal 0.83-4.51 [facility] Comment on above: Performed By: #### L 100.0100, L500.2500 ####[facility] [address] [place], [address] Absolute Neut 3.0 X10 3/uL Normal 2.0-7.7 [facility] Comment on above: Performed By: #### L 100.0100, L500.2500 ####[facility] [address] [place], [address] Basophils/100 WBC (Bld) 0.9 % Normal 0-[address] [facility] Comment on above: Performed By: #### L 100.0100, L500.2500 ####[facility] [address] [place], [address] Eosinophils/100 WBC (Bld) 4.8 % Normal 0-5 [facility] Comment on above: Performed By: #### L 100.0100, L500.2500 ####[facility] [address] [place], [address] Erythrocyte distribution width (RBC) [Ratio] 16.0 % High 11.6-14.6 [facility] Comment on above: Performed By: #### L 100.0100, L500.2500 ####[facility] [address] [place], [address] Hematocrit (Bld) [Volume fraction] 29.7 % Low 37-47 [facility] Comment on above: Performed By: #### L 100.0100, L500.2500 ####[facility] [address] [place], [address] Hemoglobin (Bld) [Mass/Vol] 9.4 g/dL Low 12.0-15.0 [facility] Comment on above: Performed By: #### L 100.0100, L500.2500 ####[facility] [address] [place], [address] IG% 1.200 High 0.0-0.9 [facility] Comment on above: Result Comment: IG% - Immature Granulocytes (promyelocytes, myelocytes andmetamyelocytes) > 1% indicates that a LEFT SHIFT is Present. Performed By: #### L 100.0100, L500.2500 ####[facility] [address] [place], [address] Lymphocytes/100 WBC (Bld) 26.8 % Normal 19-41 [facility] Comment on above: Performed By: #### L 100.0100, L500.2500 ####[facility] [address] [place], [address] MCH (RBC) [Entitic mass] 29.8 pg Normal 27.0-32.0 [facility] Comment on above: Performed By: #### L 100.0100, L500.2500 ####[facility] [address] [place], [address] MCHC (RBC) [Mass/Vol] 31.6 g/dL Low 32-36 [facility] Comment on above: Performed By: #### L 100.0100, L500.2500 ####[facility] [address] [place], [address] MCV (RBC) [Entitic vol] 94.3 fL Normal 81-[address] [facility] Comment on above: Performed By: #### L 100.0100, L500.2500 ####[facility] [address] [place], [address] Monocytes/100 WBC (Bld) 12.3 % High 0-[address] [facility] Comment on above: Performed By: #### L 100.0100, L500.2500 ####[facility] [address] [place], [address] Neutrophils/100 WBC (Bld) 54.0 % Normal 47-70 [facility] Comment on above: Performed By: #### L 100.0100, L500.2500 ####[facility] [address] [place], [address] Nucleated RBC (Bld) [#/Vol] 0 10*3/uL Normal 0-5 [facility] Comment on above: Performed By: #### L 100.0100, L500.2500 ####[facility] [address] [place], [address] Platelet mean volume (Bld) [Entitic vol] 9.3 fL Normal 6.2-12.0 [facility] Comment on above: Performed By: #### L 100.0100, L500.2500 ####[facility] [address] [place], [address] Platelets (Bld) [#/Vol] 308 10*3/uL Normal 150-450 [facility] Comment on above: Performed By: #### L 100.0100, L500.2500 ####[facility] [address] [place], [address] RBC (Bld) [#/Vol] 3.15 10*6/uL Low 4.2-5.[address] [facility] Comment on above: Performed By: #### L 100.0100, L500.2500 ####[facility] [address] [place], [address] RDW SD 55.8 fl High 35.1-43.9 [facility] Comment on above: Performed By: #### L 100.0100, L500.2500 ####[facility] [address] [place], [address] WBC (Bld) [#/Vol] 5.6 10*3/uL Normal 4.4-11.[address] [facility] Comment on above: Performed By: #### L 100.0100, L500.2500 ####[facility] [address] [place], [address] Calcium [Mass/Vol]Ordered By : Aleks Marshall on 06-14-2024 Serum or plasma calcium measurement (mass/volume) 8.9 mg/dL 8.5-10.1 [facility] Carbon dioxide measurementOr dered By: Aleks Marshall on 06-14-2024 CO2 [Moles/Vol] 24.0 mmol/L 21.0-32.0 [facility] Carbon dioxide measurement 24.0 mmol/L 21.0-32.0 [facility] Chloride measurementOrdered By: Aleks Marshall on 06-14-2024 Chloride [Moles/Vol] 101 mmol/L 98-107 [facility] Chloride measurement 101 mmol/L 98-107 [facility] Creatinine [Mass/Vol]Ordered By: Aleks Marshall on 06-14-2024 Serum or plasma creatinine measurement (mass/volume) 0.82 mg/dL 0.55-1.02 [facility] Eosinophil percentageOrdered By: Aleks Marshall 06-14-2024 Eosinophils/100 WBC (Bld) 4.8 % 0-5 [facility] Eosinophil percentage 4.8 % 0-5 [facility] Erythrocyte distribution wid th (RBC) [Ratio]Ordered By: Aleks Marshall 06-14-2024 Erythrocyte distribution width ratio 16.0 % High 11.6-14.6 [facility] Erythrocyte distribution wid th ratioOrdered By: Aleks Marshall 06-14-2024 Erythrocyte distribution width (RBC) [Ratio] 16.0 % High 11.6-14.6 [facility] Erythrocyte distribution wid th standard deviationOrdered By: Aleks Marshall 06-14-2024 Erythrocyte distribution width (RBC) [Ratio] 55.8 fl High 35.1-43.9 [facility] Erythrocyte distribution width standard deviation 55.8 fl High 35.1-43.9 [facility] Estimated glomerular filtrat ion rate (GFR) AmericanOrdered By: Aleks Marshall on 06-14-2024 Estimated glomerular filtration rate (GFR) 85 mL/min >60 [facility] Estimation of creatinine mary ellen aranceOrdered By: Aleks Marshall on 06-14-2024 Estimation of creatinine clearance 43.24 ml/min [facility] Glomerular filtration rate ( GFR) estimationOrdered By: Aleks Marshall on 06-14-2024 GFR/1.73 sq M.predicted among non-blacks MDRD (S/P/Bld) [Vol rate/Area] 70 mL/min/{1.73_m2} >60 [facility] Glomerular filtration rate (GFR) estimation 70 mL/min >60 [facility] Glucose measurementOrdered B y: Aleks Marshall on 06-14-2024 Glucose [Mass/Vol] 95 mg/dL 74-[address] [facility] Glucose measurement 95 mg/dL 74-[address] [facility] Hematocrit Auto (Bld) [Volum e fraction]Ordered By: Aleks Marshall on 06-14-2024 Hematocrit (Bld) [Volume fraction] 29.7 % Low 37-47 [facility] Automated blood hematocrit (percentage) 29.7 % Low 37-47 [facility] Hemoglobin measurementOrdere d By: Aleks Marshall on 06-14-2024 Hemoglobin (Bld) [Mass/Vol] 9.4 g/dL Low 12.0-15.0 [facility] Hemoglobin measurement 9.4 g/dL Low 12.0-15.0 [facility] Immature granulocytes/100 WB C Auto (Bld)Ordered By: Aleks Marshall on 06-14-2024 Immature granulocytes/100 WBC (Bld) 1.200 % High 0.0-0.9 [facility] Automated immature granulocyte percentage 1.200 % High 0.0-0.9 [facility] Lymphocytes Auto (Unsp spec) [#/Vol]Ordered By: Aleks Marshall on 06-14-2024 Absolute lymphocyte count 1.51 X10^3/uL 0.83-4.51 [facility] Lymphocytes/100 WBC Auto (Un sp spec)Ordered By: Aleks Marshall on 06-14-2024 Automated lymphocyte count as percentage of total leukocytes 26.8 % 19-41 [facility] MCV (RBC) [Entitic vol]Order ed By: Aleks Marshall on 06-14-2024 MCV (mean corpuscular volume) determination 94.3 fL 81-99 [facility] MCV (mean corpuscular volume ) determinationOrdered By: Aleks Marshall on 06-14-2024 MCV (RBC) [Entitic vol] 94.3 fL 81-[address] [facility] Mean corpuscular hemoglobin (MCH) determinationOrdered By: Aleks Marshall on 06-14-2024 MCH (RBC) [Entitic mass] 29.8 pg 27.0-32.0 [facility] Mean corpuscular hemoglobin (MCH) determination 29.8 pg 27.0-32.0 [facility] Mean corpuscular hemoglobin concentration (MCHC) determinationOrdered By: Aleks Marshall on 06-14-2024 Mean corpuscular hemoglobin concentration (MCHC) determination 31.6 g/dL Low 32-36 [facility] Mean platelet volume determi nationOrdered By: Aleks Marshall on 06-14-2024 Mean platelet volume determination 9.3 fl 6.2-12.0 [facility] Monocyte percentageOrdered B y: Aleks Marshall on 06-14-2024 Monocytes/100 WBC (Bld) 12.3 % High 0-10 [facility] Monocyte percentage 12.3 % High 0-[address] [facility] Neutrophil percentageOrdered By: Aleks Marshall on 06-14-2024 Neutrophils/100 WBC (Bld) 54.0 % 47-70 [facility] Neutrophil percentage 54.0 % 47-70 [facility] Nucleated red blood cell per centageOrdered By: Aleks Marshall on 06-14-2024 Nucleated red blood cell percentage 0 % 0-5 [facility] Platelet countOrdered By: Yobany Marshall on 06-14-2024 Platelets (Bld) [#/Vol] 308 10*3/uL 150-450 [facility] Platelet count 308 K/mm3 150-450 [facility] Potassium measurementOrdered By: Aleks Marshall on 06-14-2024 Potassium [Moles/Vol] 4.6 mmol/L 3.5-5.1 [facility] Potassium measurement 4.6 mmol/L 3.5-5.1 [facility] RBC Auto (Bld) [#/Vol]Ordere d By: Aleks Marshall on 06-14-2024 RBC (Bld) [#/Vol] 3.15 10*6/uL Low 4.2-5.[address] [facility] Automated blood erythrocyte count 3.15 M/mm3 Low 4.2-5.4 [facility] Serum anion gap measurementO rdered By: Aleks Marshall on 06-14-2024 Serum anion gap measurement 7 5-15 [facility] Serum or plasma calcium manuel urement (mass/volume)Ordered By: Aleks Marshall on 06-14-2024 Calcium [Mass/Vol] 8.9 mg/dL 8.5-10.[address] [facility] Serum or plasma creatinine m easurement (mass/volume)Ordered By: Aleks Marshall on 06-14-2024 Creatinine [Mass/Vol] 0.82 mg/dL 0.55-1.02 [facility] Serum or plasma urea nitroge n measurement (mass/volume)Ordered By: Aleks Marshall on 06-14-2024 Urea nitrogen [Mass/Vol] 30 mg/dL High 11-26 [facility] Sodium levelOrdered By: Aleks Marshall on 06-14-2024 Sodium [Moles/Vol] 132 mmol/L Low 136-[address] [facility] Sodium level 132 mmol/L Low 136-145 [facility] Urea nitrogen [Mass/Vol]Orde red By: Aleks Marshall on 06-14-2024 Serum or plasma urea nitrogen measurement (mass/volume) 30 mg/dL High 11-26 [facility] White blood cell (WBC) count Ordered By: Aleks Marshall on 06-14-2024 WBC (Bld) [#/Vol] 5.6 10*3/uL 4.4-11.[address] [facility] White blood cell (WBC) count 5.6 K/mm3 4.4-11.0 [facility] Basic Metabolic Profile (BMP )on 06-07-2024 BUN/CRE 26.3 RATIO High 10-20 [facility] Comment on above: Performed By: #### L 100.0100, L500.2500 ####[facility] [address] [place], [address] CA,Total 8.7 mg/dL Normal 8.5-10.1 [facility] Comment on above: Performed By: #### L 100.0100, L500.2500 ####[facility] [address] [place], [address] Chloride [Moles/Vol] 98 mmol/L Normal 98-107 [facility] Comment on above: Performed By: #### L 100.0100, L500.2500 ####[facility] [address] [place], [address] CO2 [Moles/Vol] 26.0 mmol/L Normal 21.0-32.0 [facility] Comment on above: Performed By: #### L 100.0100, L500.2500 ####[facility] [address] [place], [address] Creatinine [Mass/Vol] 0.80 mg/dL Normal 0.55-1.02 [facility] Comment on above: Result Comment: The validity of the calculated GFR GFRAA in patients over70 years has not been determined. Clinical correlation isessential. Performed By: #### L 100.0100, L500.2500 ####[facility] [address] [place], [address] ECRCL 44.76 ml/min Normal [facility] Comment on above: Performed By: #### L 100.0100, L500.2500 ####[facility] [address] [place], [address] EST GFR - AA 87 mL/min Normal >60 [facility] Comment on above: Result Comment: Afri can Armenian GFR Calc Performed By: #### L 100.0100, L500.2500 ####[facility] [address] [place], [address] GAP 7 Normal 5-15 [facility] Comment on above: Performed By: #### L 100.0100, L500.2500 ####[facility] [address] [place], [address] GFR/1.73 sq M.predicted among non-blacks MDRD (S/P/Bld) [Vol rate/Area] 72 mL/min/{1.73_m2} Normal >60 [facility] Comment on above: Result Comment: Non- GFR Calc Performed By: #### L 100.0100, L500.2500 ####[facility] [address] [place], [address] Glucose [Mass/Vol] 96 mg/dL Normal 74-[address] [facility] Comment on above: Performed By: #### L 100.0100, L500.2500 ####[facility] [address] [place], [address] Potassium [Moles/Vol] 4.3 mmol/L Normal 3.5-5.1 [facility] Comment on above: Performed By: #### L 100.0100, L500.2500 ####[facility] [address] [place], [address] Sodium [Moles/Vol] 132 mmol/L Low 136-[address] [facility] Comment on above: Performed By: #### L 100.0100, L500.2500 ####[facility] [address] [place], [address] Urea nitrogen [Mass/Vol] 21 mg/dL High 7-18 [facility] Comment on above: Performed By: #### L 100.0100, L500.2500 ####[facility] [address] [place], [address] CBC W/Diff, Automatedon 2 Absolute Lymph 1.44 X10 3/uL Normal 0.83-4.51 [facility] Comment on above: Performed By: #### L 100.0100, L500.2500 ####[facility] [address] [place], [address] Absolute Neut 4.2 X10 3/uL Normal 2.0-7.7 [facility] Comment on above: Performed By: #### L 100.0100, L500.2500 ####[facility] [address] [place], [address] Basophils/100 WBC (Bld) 1.1 % High 0-[address] [facility] Comment on above: Performed By: #### L 100.0100, L500.2500 ####[facility] [address] [place], [address] Eosinophils/100 WBC (Bld) 2.9 % Normal 0-5 [facility] Comment on above: Performed By: #### L 100.0100, L500.2500 ####[facility] [address] [place], [address] Erythrocyte distribution width (RBC) [Ratio] 15.9 % High 11.6-14.6 [facility] Comment on above: Performed By: #### L 100.0100, L500.2500 ####[facility] [address] [place], [address] Hematocrit (Bld) [Volume fraction] 30.4 % Low 37-47 [facility] Comment on above: Performed By: #### L 100.0100, L500.2500 ####[facility] [address] [place], [address] Hemoglobin (Bld) [Mass/Vol] 9.5 g/dL Low 12.0-15.0 [facility] Comment on above: Performed By: #### L 100.0100, L500.2500 ####[facility] [address] [place], [address] IG% 1.200 High 0.0-0.9 [facility] Comment on above: Result Comment: IG% - Immature Granulocytes (promyelocytes, myelocytes andmetamyelocytes) > 1% indicates that a LEFT SHIFT is Present. Performed By: #### L 100.0100, L500.2500 ####[facility] [address] [place], [address] Lymphocytes/100 WBC (Bld) 21.8 % Normal 19-41 [facility] Comment on above: Performed By: #### L 100.0100, L500.2500 ####[facility] [address] [place], [address] MCH (RBC) [Entitic mass] 28.4 pg Normal 27.0-32.0 [facility] Comment on above: Performed By: #### L 100.0100, L500.2500 ####[facility] [address] [place], [address] MCHC (RBC) [Mass/Vol] 31.3 g/dL Low 32-36 [facility] Comment on above: Performed By: #### L 100.0100, L500.2500 ####[facility] [address] [place], [address] MCV (RBC) [Entitic vol] 91.0 fL Normal 81-99 [facility] Comment on above: Performed By: #### L 100.0100, L500.2500 ####[facility] [address] [place], [address] Monocytes/100 WBC (Bld) 10.1 % High 0-10 [facility] Comment on above: Performed By: #### L 100.0100, L500.2500 ####[facility] [address] [place], [address] Neutrophils/100 WBC (Bld) 62.9 % Normal 47-70 [facility] Comment on above: Performed By: #### L 100.0100, L500.2500 ####[facility] [address] [place], [address] Nucleated RBC (Bld) [#/Vol] 0 10*3/uL Normal 0-5 [facility] Comment on above: Performed By: #### L 100.0100, L500.2500 ####[facility] [address] [place], [address] Platelet mean volume (Bld) [Entitic vol] 9.0 fL Normal 6.2-12.0 [facility] Comment on above: Performed By: #### L 100.0100, L500.2500 ####[facility] [address] [place], [address] Platelets (Bld) [#/Vol] 373 10*3/uL Normal 150-450 [facility] Comment on above: Performed By: #### L 100.0100, L500.2500 ####[facility] [address] [place], [address] RBC (Bld) [#/Vol] 3.34 10*6/uL Low 4.2-5.[address] [facility] Comment on above: Performed By: #### L 100.0100, L500.2500 ####[facility] [address] [place], [address] RDW SD 52.9 fl High 35.1-43.9 [facility] Comment on above: Performed By: #### L 100.0100, L500.2500 ####[facility] [address] [place], [address] WBC (Bld) [#/Vol] 6.6 10*3/uL Normal 4.4-11.[address] [facility] Comment on above: Performed By: #### L 100.0100, L500.2500 ####[facility] [address] [place], [address] Phosphoruson 06-07-2024 Phosphate [Mass/Vol] 2.9 mg/dL Normal 2.5-4.9 [facility] Comment on above: Order Comment: Comme nts: per DC instructions Performed By: #### L 501.2300 ####[facility] [address] [place], [address] Phosphorus measurementOrdere d By: Aleks Marshall on 06-07-2024 Phosphorus measurement 2.9 mg/dL 2.5-4.9 [facility] HH, Hemoglobin AND Hematocri ton 06-06-2024 Hematocrit (Bld) [Volume fraction] 28.1 % Low 37-47 [facility] Comment on above: Performed By: #### L 100.0600 ####[facility] [address] [place], [address] Hemoglobin (Bld) [Mass/Vol] 8.9 g/dL Low 12.0-15.0 [facility] Comment on above: Performed By: #### L 100.0600 ####[facility] [address] [place], [address] Basic Metabolic Profile (BMP )on 06-05-2024 BUN/CRE 33.4 RATIO High 10-20 [facility] Comment on above: Performed By: #### L 500.2500 ####[facility] [address] [place], [address] CA,Total 9.0 mg/dL Normal 8.5-10.1 [facility] Comment on above: Performed By: #### L 500.2500 ####[facility] [address] [place], [address] Chloride [Moles/Vol] 99 mmol/L Normal 98-107 [facility] Comment on above: Performed By: #### L 500.2500 ####[facility] [address] [place], [address] CO2 [Moles/Vol] 23.0 mmol/L Normal 21.0-32.0 [facility] Comment on above: Performed By: #### L 500.2500 ####[facility] [address] [place], [address] Creatinine [Mass/Vol] 0.93 mg/dL Normal 0.55-1.02 [facility] Comment on above: Result Comment: The validity of the calculated GFR GFRAA in patients over70 years has not been determined. Clinical correlation isessential. Performed By: #### L 500.2500 ####[facility] [address] [place], [address] ECRCL 38.50 ml/min Normal [facility] Comment on above: Performed By: #### L 500.2500 ####[facility] [address] [place], [address] EST GFR - AA 73 mL/min Normal >60 [facility] Comment on above: Result Comment: Afri can Armenian GFR Calc Performed By: #### L 500.2500 ####[facility] [address] [place], [address] GAP 9 Normal 5-15 [facility] Comment on above: Performed By: #### L 500.2500 ####[facility] [address] [place], [address] GFR/1.73 sq M.predicted among non-blacks MDRD (S/P/Bld) [Vol rate/Area] 61 mL/min/{1.73_m2} Normal >60 [facility] Comment on above: Result Comment: Non- GFR Calc Performed By: #### L 500.2500 ####[facility] [address] [place], [address] Glucose [Mass/Vol] 97 mg/dL Normal 74-[address] [facility] Comment on above: Performed By: #### L 500.2500 ####[facility] [address] [place], [address] Potassium [Moles/Vol] 4.1 mmol/L Normal 3.5-5.1 [facility] Comment on above: Performed By: #### L 500.2500 ####[facility] [address] [place], [address] Sodium [Moles/Vol] 131 mmol/L Low 136-[address] [facility] Comment on above: Performed By: #### L 500.2500 ####[facility] [address] [place], [address] Urea nitrogen [Mass/Vol] 31 mg/dL High 7-18 [facility] Comment on above: Performed By: #### L 500.2500 ####[facility] [address] [place], [address] HH, Hemoglobin AND Hematocri ton 06-03-2024 Hematocrit (Bld) [Volume fraction] 30.9 % Low 37-47 [facility] Comment on above: Performed By: #### L 100.0600 ####[facility] [address] [place], [address] Hemoglobin (Bld) [Mass/Vol] 9.4 g/dL Low 12.0-15.0 [facility] Comment on above: Performed By: #### L 100.0600 ####[facility] [address] [place], [address] Basic Metabolic Profile (BMP )on 06-02-2024 BUN/CRE 33.2 RATIO High 10-20 [facility] Comment on above: Performed By: #### L 500.2500 ####[facility] [address] [place], [address] CA,Total 9.0 mg/dL Normal 8.5-10.1 [facility] Comment on above: Performed By: #### L 500.2500 ####[facility] [address] [place], [address] Chloride [Moles/Vol] 105 mmol/L Normal 98-107 [facility] Comment on above: Performed By: #### L 500.2500 ####[facility] [address] [place], [address] CO2 [Moles/Vol] 26.0 mmol/L Normal 21.0-32.0 [facility] Comment on above: Performed By: #### L 500.2500 ####[facility] [address] [place], [address] Creatinine [Mass/Vol] 0.75 mg/dL Normal 0.55-1.02 [facility] Comment on above: Result Comment: The validity of the calculated GFR GFRAA in patients over70 years has not been determined. Clinical correlation isessential. Performed By: #### L 500.2500 ####[facility] [address] [place], [address] ECRCL 44.76 ml/min Normal [facility] Comment on above: Performed By: #### L 500.2500 ####[facility] [address] [place], [address] EST GFR - AA 93 mL/min Normal >60 [facility] Comment on above: Result Comment: Afri can Armenian GFR Calc Performed By: #### L 500.2500 ####[facility] [address] [place], [address] GAP 6 Normal 5-15 [facility] Comment on above: Performed By: #### L 500.2500 ####[facility] [address] [place], [address] GFR/1.73 sq M.predicted among non-blacks MDRD (S/P/Bld) [Vol rate/Area] 77 mL/min/{1.73_m2} Normal >60 [facility] Comment on above: Result Comment: Non- GFR Calc Performed By: #### L 500.2500 ####[facility] [address] [place], [address] Glucose [Mass/Vol] 99 mg/dL Normal 74-[address] [facility] Comment on above: Performed By: #### L 500.2500 ####[facility] [address] [place], [address] Potassium [Moles/Vol] 4.2 mmol/L Normal 3.5-5.1 [facility] Comment on above: Performed By: #### L 500.2500 ####[facility] [address] [place], [address] Sodium [Moles/Vol] 137 mmol/L Normal 136-[address] [facility] Comment on above: Performed By: #### L 500.2500 ####[facility] [address] [place], [address] Urea nitrogen [Mass/Vol] 25 mg/dL High 7-18 [facility] Comment on above: Performed By: #### L 500.2500 ####[facility] [address] [place], [address] HH, Hemoglobin AND Hematocri ton 06-01-2024 Hematocrit (Bld) [Volume fraction] 29.8 % Low 37-47 [facility] Comment on above: Performed By: #### L 100.0600 ####[facility] [address] [place], [address] Hemoglobin (Bld) [Mass/Vol] 9.2 g/dL Low 12.0-15.0 [facility] Comment on above: Performed By: #### L 100.0600 ####[facility] [address] [place], [address] Basic Metabolic Profile (BMP )on 05-31-2024 BUN/CRE 40.2 RATIO High -20 [facility] Comment on above: Performed By: #### L 500.2500, L100.0100 ####[facility] [address] [place], [address] CA,Total 9.0 mg/dL Normal 8.5-10.1 [facility] Comment on above: Performed By: #### L 500.2500, L100.0100 ####[facility] [address] [place], [address] Chloride [Moles/Vol] 107 mmol/L Normal 98-107 [facility] Comment on above: Performed By: #### L 500.2500, L100.0100 ####[facility] [address] [place], [address] CO2 [Moles/Vol] 23.0 mmol/L Normal 21.0-32.0 [facility] Comment on above: Performed By: #### L 500.2500, L100.0100 ####[facility] [address] [place], [address] Creatinine [Mass/Vol] 0.77 mg/dL Normal 0.55-1.02 [facility] Comment on above: Result Comment: The validity of the calculated GFR GFRAA in patients over70 years has not been determined. Clinical correlation isessential. Performed By: #### L 500.2500, L100.0100 ####[facility] [address] [place], [address] ECRCL 44.92 ml/min Normal [facility] Comment on above: Performed By: #### L 500.2500, L100.0100 ####[facility] [address] [place], [address] EST GFR - AA 91 mL/min Normal >60 [facility] Comment on above: Result Comment: Afri can Armenian GFR Calc Performed By: #### L 500.2500, L100.0100 ####[facility] [address] [place], [address] GAP 5 Normal 5-15 [facility] Comment on above: Performed By: #### L 500.2500, L100.0100 ####[facility] [address] [place], [address] GFR/1.73 sq M.predicted among non-blacks MDRD (S/P/Bld) [Vol rate/Area] 75 mL/min/{1.73_m2} Normal >60 [facility] Comment on above: Result Comment: Non- GFR Calc Performed By: #### L 500.2500, L100.0100 ####[facility] [address] [place], [address] Glucose [Mass/Vol] 113 mg/dL High 74-[address] [facility] Comment on above: Result Comment: Fast ing Glucose result from 100 to 125 mg/dLsuggests IMPAIRED HOMEOSTASIS per A.D.A. criteria. Performed By: #### L 500.2500, L100.0100 ####[facility] [address] [place], [address] Potassium [Moles/Vol] 4.9 mmol/L Normal 3.5-5.1 [facility] Comment on above: Performed By: #### L 500.2500, L100.0100 ####[facility] [address] [place], [address] Sodium [Moles/Vol] 135 mmol/L Low 136-[address] [facility] Comment on above: Performed By: #### L 500.2500, L100.0100 ####[facility] [address] [place], [address] Urea nitrogen [Mass/Vol] 31 mg/dL High 7-18 [facility] Comment on above: Performed By: #### L 500.2500, L100.0100 ####[facility] [address] [place], [address] CBC W/Diff, Automatedon 01-2 0 Absolute Lymph 1.12 X10 3/uL Normal 0.83-4.51 [facility] Comment on above: Performed By: #### L 500.2500, L100.0100 ####[facility] [address] [place], [address] Absolute Neut 4.2 X10 3/uL Normal 2.0-7.7 [facility] Comment on above: Performed By: #### L 500.2500, L100.0100 ####[facility] [address] [place], [address] Basophils/100 WBC (Bld) 1.1 % High 0-[address] [facility] Comment on above: Performed By: #### L 500.2500, L100.0100 ####[facility] [address] [place], [address] Eosinophils/100 WBC (Bld) 2.8 % Normal 0-5 [facility] Comment on above: Performed By: #### L 500.2500, L100.0100 ####[facility] [address] [place], [address] Erythrocyte distribution width (RBC) [Ratio] 15.9 % High 11.6-14.6 [facility] Comment on above: Performed By: #### L 500.2500, L100.0100 ####[facility] [address] [place], [address] Hematocrit (Bld) [Volume fraction] 30.2 % Low 37-47 [facility] Comment on above: Performed By: #### L 500.2500, L100.0100 ####[facility] [address] [place], [address] Hemoglobin (Bld) [Mass/Vol] 9.3 g/dL Low 12.0-15.0 [facility] Comment on above: Performed By: #### L 500.2500, L100.0100 ####[facility] [address] [place], [address] IG% 1.300 High 0.0-0.9 [facility] Comment on above: Result Comment: IG% - Immature Granulocytes (promyelocytes, myelocytes andmetamyelocytes) > 1% indicates that a LEFT SHIFT is Present. Performed By: #### L 500.2500, L100.0100 ####[facility] [address] [place], [address] Lymphocytes/100 WBC (Bld) 18.1 % Low 19-41 [facility] Comment on above: Performed By: #### L 500.2500, L100.0100 ####[facility] [address] [place], [address] MCH (RBC) [Entitic mass] 29.5 pg Normal 27.0-32.0 [facility] Comment on above: Performed By: #### L 500.2500, L100.0100 ####[facility] [address] [place], [address] MCHC (RBC) [Mass/Vol] 30.8 g/dL Low 32-36 [facility] Comment on above: Performed By: #### L 500.2500, L100.0100 ####[facility] [address] [place], [address] MCV (RBC) [Entitic vol] 95.9 fL Normal 81-[address] [facility] Comment on above: Performed By: #### L 500.2500, L100.0100 ####[facility] [address] [place], [address] Monocytes/100 WBC (Bld) 9.2 % Normal 0-[address] [facility] Comment on above: Performed By: #### L 500.2500, L100.0100 ####[facility] [address] [place], [address] Neutrophils/100 WBC (Bld) 67.5 % Normal 47-70 [facility] Comment on above: Performed By: #### L 500.2500, L100.0100 ####[facility] [address] [place], [address] Nucleated RBC (Bld) [#/Vol] 0 10*3/uL Normal 0-5 [facility] Comment on above: Performed By: #### L 500.2500, L100.0100 ####[facility] [address] [place], [address] Platelet mean volume (Bld) [Entitic vol] 9.5 fL Normal 6.2-12.0 [facility] Comment on above: Performed By: #### L 500.2500, L100.0100 ####[facility] [address] [place], [address] Platelets (Bld) [#/Vol] 293 10*3/uL Normal 150-450 [facility] Comment on above: Performed By: #### L 500.2500, L100.0100 ####[facility] [address] [place], [address] RBC (Bld) [#/Vol] 3.15 10*6/uL Low 4.2-5.[address] [facility] Comment on above: Performed By: #### L 500.2500, L100.0100 ####[facility] [address] [place], [address] RDW SD 55.9 fl High 35.1-43.9 [facility] Comment on above: Performed By: #### L 500.2500, L100.0100 ####[facility] [address] [place], [address] WBC (Bld) [#/Vol] 6.2 10*3/uL Normal 4.4-11.[address] [facility] Comment on above: Performed By: #### L 500.2500, L100.0100 ####[facility] [address] [place], [place], [id number] Venous Duplex US - Yfn Extre mon 05-31-2024 Venous Duplex US - Yfn Extrem Normal [facility] Clarity (U)Ordered By: Joyce Cliffordcarlitos on 05-28-2024 Urine clarity Clear Clear [facility] Color (U)Ordered By: Joyce dumont on 05-28-2024 Urine color determination Yellow Yellow [facility] Leukocyte esterase Test stri p Ql (U)Ordered By: Joyce Cliffordcarlitos on 05-28-2024 Urine leukocyte esterase detection by dipstick 25 /ul High Negative [facility] Microscopic analysis of urin e for red blood cells (RBC)Ordered By: Joyce Cliffordcarlitos on 05-28-2024 Microscopic analysis of urine for red blood cells (RBC) 5-10 SEEN /hpf 0-5 [facility] Protein Test strip Ql (U)Ord ered By: Joyce Cliffordcarlitos on 05-28-2024 Urine protein assay by test strip, semi-quantitative 15 mg/dl High Negative [facility] Specific gravity (U) [Rel de nsity]Ordered By: Joyce Cliffordcarlitos on 05-28-2024 Urine specific gravity measurement 1.010 1.002-1.030 [facility] Squamous epithelial cells de tection in urine sediment by light microscopyOrdered By: Joyce Cliffordcarlitos on 05-28-2024 Squamous epithelial cells detection in urine sediment by light microscopy 0 SEEN /hpf [facility] Urinalysis, Completeon 05-28 RBC 5-10 SEEN Normal 0-5 [facility] Comment on above: Order Comment: COLT TER SPECIMEN Performed By: #### L 400.0001 ####[facility] [address] [place], [place], [id number] WBC 0-5 SEEN Normal 0-5 [facility] Comment on above: Order Comment: COLT TER SPECIMEN Performed By: #### L 400.0001 ####[facility] [address] [place], [place], [id number] BACTERIA 0 SEEN Normal None Seen [facility] Comment on above: Order Comment: COLT TER SPECIMEN Performed By: #### L 400.0001 ####[facility] [address] [place], [address] EPI,SQUAMOUS 0 SEEN Normal 5-10 [facility] Comment on above: Order Comment: COLT TER SPECIMEN Performed By: #### L 400.0001 ####[facility] [address] [place], [address] Mucus Ql (Urine sed) 0 SEEN Normal [facility] Comment on above: Order Comment: COLT TER SPECIMEN Performed By: #### L 400.0001 ####[facility] [address] [place], [address] Urine blood detectionOrdered By: Joyce Rousseau on 05-28-2024 Urine blood detection 50 /ul High Negative [facility] Urine glucose detectionOrder ed By: Joyce Rousseau on 05-28-2024 Urine glucose detection Normal mg/dl Normal [facility] Urine total bilirubin detect ion by test stripOrdered By: Joyce Rousseau on 05-28-2024 Urine total bilirubin detection by test strip Negative Negative [facility] White blood cell countOrdere d By: Joyce Rousseau on 05-28-2024 White blood cell count 0-5 SEEN /hpf 0-5 [facility] pH (U)Ordered By: Joyce urbina on 05-28-2024 Urine pH 6.5 5.0 - 8.0 [facility] Basic Metabolic Profile (BMP )on 05-24-2024 BUN/CRE 26.9 RATIO High 10-20 [facility] Comment on above: Performed By: #### L 500.2500, L100.0500, L501.5200 ####[facility] [address] [place], [address] CA,Total 8.7 mg/dL Normal 8.5-10.1 [facility] Comment on above: Performed By: #### L 500.2500, L100.0500, L501.5200 ####[facility] [address] [place], [address] Chloride [Moles/Vol] 110 mmol/L High 98-107 [facility] Comment on above: Performed By: #### L 500.2500, L100.0500, L501.5200 ####[facility] [address] [place], [address] CO2 [Moles/Vol] 24.0 mmol/L Normal 21.0-32.0 [facility] Comment on above: Performed By: #### L 500.2500, L100.0500, L501.5200 ####[facility] [address] [place], [address] Creatinine [Mass/Vol] 0.93 mg/dL Normal 0.55-1.02 [facility] Comment on above: Result Comment: The validity of the calculated GFR GFRAA in patients over70 years has not been determined. Clinical correlation isessential. Performed By: #### L 500.2500, L100.0500, L501.5200 ####[facility] [address] [place], [address] ECRCL 37.45 ml/min Normal [facility] Comment on above: Performed By: #### L 500.2500, L100.0500, L501.5200 ####[facility] [address] [place], [address] EST GFR - AA 73 mL/min Normal >60 [facility] Comment on above: Result Comment: Afri can Armenian GFR Calc Performed By: #### L 500.2500, L100.0500, L501.5200 ####[facility] [address] [place], [address] GAP 5 Normal 5-15 [facility] Comment on above: Performed By: #### L 500.2500, L100.0500, L501.5200 ####[facility] [address] [place], [address] GFR/1.73 sq M.predicted among non-blacks MDRD (S/P/Bld) [Vol rate/Area] 61 mL/min/{1.73_m2} Normal >60 [facility] Comment on above: Result Comment: Non- GFR Calc Performed By: #### L 500.2500, L100.0500, L501.5200 ####[facility] [address] [place], [address] Glucose [Mass/Vol] 93 mg/dL Normal 74-[address] [facility] Comment on above: Performed By: #### L 500.2500, L100.0500, L501.5200 ####[facility] [address] [place], [address] Potassium [Moles/Vol] 4.7 mmol/L Normal 3.5-5.1 [facility] Comment on above: Performed By: #### L 500.2500, L100.0500, L501.5200 ####[facility] [address] [place], [address] Sodium [Moles/Vol] 138 mmol/L Normal 136-[address] [facility] Comment on above: Performed By: #### L 500.2500, L100.0500, L501.5200 ####[facility] [address] [place], [address] Urea nitrogen [Mass/Vol] 25 mg/dL High 7-18 [facility] Comment on above: Performed By: #### L 500.2500, L100.0500, L501.5200 ####[facility] [address] [place], [address] Blood urea nitrogen (BUN)/cr eatinine ratioOrdered By: Joyce Rousseau on 05-24-2024 Blood urea nitrogen (BUN)/creatinine ratio 26.9 RATIO High 10-20 [facility] CBC-Complete Blood Cnt No Di ffon 05-24-2024 Erythrocyte distribution width (RBC) [Ratio] 15.7 % High 11.6-14.6 [facility] Comment on above: Performed By: #### L 500.2500, L100.0500, L501.5200 ####[facility] [address] [place], [address] Hematocrit (Bld) [Volume fraction] 33.8 % Low 37-47 [facility] Comment on above: Performed By: #### L 500.2500, L100.0500, L501.5200 ####[facility] [address] [place], [address] Hemoglobin (Bld) [Mass/Vol] 10.6 g/dL Low 12.0-15.0 [facility] Comment on above: Performed By: #### L 500.2500, L100.0500, L501.5200 ####[facility] [address] [place], [address] MCH (RBC) [Entitic mass] 29.0 pg Normal 27.0-32.0 [facility] Comment on above: Performed By: #### L 500.2500, L100.0500, L501.5200 ####[facility] [address] [place], [address] MCHC (RBC) [Mass/Vol] 31.4 g/dL Low 32-36 [facility] Comment on above: Performed By: #### L 500.2500, L100.0500, L501.5200 ####[facility] [address] [place], [address] MCV (RBC) [Entitic vol] 92.3 fL Normal 81-[address] [facility] Comment on above: Performed By: #### L 500.2500, L100.0500, L501.5200 ####[facility] [address] [place], [address] Platelet mean volume (Bld) [Entitic vol] 9.4 fL Normal 6.2-12.0 [facility] Comment on above: Performed By: #### L 500.2500, L100.0500, L501.5200 ####[facility] [address] [place], [address] Platelets (Bld) [#/Vol] 433 10*3/uL Normal 150-450 [facility] Comment on above: Performed By: #### L 500.2500, L100.0500, L501.5200 ####[facility] [address] [place], [address] RBC (Bld) [#/Vol] 3.66 10*6/uL Low 4.2-5.[address] [facility] Comment on above: Performed By: #### L 500.2500, L100.0500, L501.5200 ####[facility] [address] [place], [address] RDW SD 52.7 fl High 35.1-43.9 [facility] Comment on above: Performed By: #### L 500.2500, L100.0500, L501.5200 ####[facility] [address] [place], [address] WBC (Bld) [#/Vol] 8.3 10*3/uL Normal 4.4-11.[address] [facility] Comment on above: Performed By: #### L 500.2500, L100.0500, L501.5200 ####[facility] [address] [place], [address] Calcium [Mass/Vol]Ordered By : Joyce Rousseau on 05-24-2024 Serum or plasma calcium measurement (mass/volume) 8.7 mg/dL 8.5-10.1 [facility] Carbon dioxide measurementOr dered By: Joyce Rousseau on 05-24-2024 Carbon dioxide measurement 24.0 mmol/L 21.0-32.0 [facility] Chloride measurementOrdered By: Joyce Rousseau on 05-24-2024 Chloride measurement 110 mmol/L High 98-107 [facility] Creatinine [Mass/Vol]Ordered By: Joyce Rousseau on 05-24-2024 Serum or plasma creatinine measurement (mass/volume) 0.93 mg/dL 0.55-1.02 [facility] Erythrocyte distribution wid th (RBC) [Ratio]Ordered By: Joyce Rousseau on 05-24-2024 Erythrocyte distribution width ratio 15.7 % High 11.6-14.6 [facility] Erythrocyte distribution wid th standard deviationOrdered By: Joyce Rousseau on 05-24-2024 Erythrocyte distribution width standard deviation 52.7 fl High 35.1-43.9 [facility] Estimated glomerular filtrat ion rate (GFR) AmericanOrdered By: Joyce Rousseau on 05-24-2024 Estimated glomerular filtration rate (GFR) 73 mL/min >60 [facility] Estimation of creatinine mary ellen aranceOrdered By: Joyce Rousseau on 05-24-2024 Estimation of creatinine clearance 37.45 ml/min [facility] Glomerular filtration rate ( GFR) estimationOrdered By: Joyce Rousseau on 05-24-2024 Glomerular filtration rate (GFR) estimation 61 mL/min >60 [facility] Glucose measurementOrdered B y: Joyce Rousseau on 05-24-2024 Glucose measurement 93 mg/dL 74-[address] [facility] Hematocrit Auto (Bld) [Volum e fraction]Ordered By: Joyce Ruosseau on 05-24-2024 Automated blood hematocrit (percentage) 33.8 % Low 37-47 [facility] Hemoglobin measurementOrdere d By: Joyce Rousseau on 05-24-2024 Hemoglobin measurement 10.6 g/dL Low 12.0-15.0 [facility] MCV (RBC) [Entitic vol]Order ed By: Joyce Rousseau on 05-24-2024 MCV (mean corpuscular volume) determination 92.3 fL 81-99 [facility] Magnesiumon 05-24-2024 Magnesium [Mass/Vol] 2.5 mg/dL Normal 1.6-2.6 [facility] Comment on above: Performed By: #### L 500.2500, L100.0500, L501.5200 ####[facility] [address] [place], [place], [id number] Magnesium measurementOrdered By: Joyce Rousseau on 05-24-2024 Magnesium measurement 2.5 mg/dL 1.6-2.6 [facility] Mean corpuscular hemoglobin (MCH) determinationOrdered By: Joyce Rousseau on 05-24-2024 Mean corpuscular hemoglobin (MCH) determination 29.0 pg 27.0-32.0 [facility] Mean corpuscular hemoglobin concentration (MCHC) determinationOrdered By: Joyce Rousseau on 05-24-2024 Mean corpuscular hemoglobin concentration (MCHC) determination 31.4 g/dL Low 32-36 [facility] Mean platelet volume determi nationOrdered By: Joyce Rousseau on 05-24-2024 Mean platelet volume determination 9.4 fl 6.2-12.0 [facility] Phosphoruson 05-24-2024 Phosphate [Mass/Vol] 2.1 mg/dL Low 2.5-4.9 [facility] Comment on above: Performed By: #### L 501.2300 ####[facility] [address] [place], [place], [address] Phosphorus measurementOrdere d By: Joyce Rousseau on 05-24-2024 Phosphorus measurement 2.1 mg/dL Low 2.5-4.9 [facility] Platelet countOrdered By: Sammy Rousseau on 05-24-2024 Platelet count 433 K/mm3 150-450 [facility] Potassium measurementOrdered By: Joyce Rousseau on 05-24-2024 Potassium measurement 4.7 mmol/L 3.5-5.1 [facility] RBC Auto (Bld) [#/Vol]Ordere d By: Joyce Rousseau on 05-24-2024 Automated blood erythrocyte count 3.66 M/mm3 Low 4.2-5.4 [facility] Serum anion gap measurementO rdered By: Joyce Rousseau on 05-24-2024 Serum anion gap measurement 5 5-15 [facility] Sodium levelOrdered By: Joyce Rousseau on 05-24-2024 Sodium level 138 mmol/L 136-145 [facility] Urea nitrogen [Mass/Vol]Orde red By: Joyce Rousseau on 05-24-2024 Serum or plasma urea nitrogen measurement (mass/volume) 25 mg/dL High 7-18 [facility] White blood cell (WBC) count Ordered By: Joyce Cliffordcarlitos on 05-24-2024 White blood cell (WBC) count 8.3 K/mm3 4.4-11.0 [facility] Stool Occult Blood iFOBon STOB Negative Normal [facility] Comment on above: Performed By: #### M 100.7900 ####[facility] [address] [place], [address] Urine Cultureon 05-19-2024 URC Normal [facility] Comment on above: Performed By: #### M 100.2200 ####[facility] [address] [place], [address] Ferritinon 05-18-2024 Ferritin [Mass/Vol] 113 ng/mL Normal 8-[address] [facility] Comment on above: Performed By: #### L 503.6030, L503.6550 ####[facility] [address] [place], [address] Ferritin measurementOrdered By: Joyce Rousseau on 05-18-2024 Ferritin measurement 113 ng/mL 8-252 [facility] Iron (Unsp spec) [Mass/Mass] Ordered By: Joyce Rousseau on 05-18-2024 Iron measurement (mass/mass) 61 ug/dL 50-170 [facility] Iron saturation [Mass fracti on]Ordered By: Joyce Rousseau on 05-18-2024 Serum or plasma iron saturation measurement (mass fraction) 11.2 % Low 15.0-55.0 [facility] Iron+Iron Binding Capacityon 05-18-2024 Iron [Mass/Vol] 61 ug/dL Normal 50-170 [facility] Comment on above: Performed By: #### L 503.6030, L503.6550 ####[facility] [address] [place], [address] IRON SATURATION 11.2 Low 15.0-55.0 [facility] Comment on above: Performed By: #### L 503.6030, L503.6550 ####[facility] [address] [place], [address] TIBC 546 ug/dL High 250-450 [facility] Comment on above: Performed By: #### L 503.6030, L503.6553 ####[facility] [address] [place], [address] TIBCOrdered By: Joyce Venessacarlitos on 05-18-2024 TIBC 546 ug/dL High 250-450 [facility] ALP [Catalytic activity/Vol] Ordered By: Aleks Rolando on 05-17-2024 Serum or plasma alkaline phosphatase measurement 59 U/L 45-117 [facility] ALT [Catalytic activity/Vol] Ordered By: Aleks Marshall on 05-17-2024 Serum or plasma alanine aminotransferase (ALT) measurement 20 U/L 13-56 [facility] Absolute neutrophil countOrd ered By: Aleks Marshall on 05-17-2024 Absolute neutrophil count 4.6 X10^3/uL 2.0-7.7 [facility] Albumin [Mass/Vol]Ordered By : Aleks Marshall on 05-17-2024 Serum or plasma albumin measurement (mass/volume) 3.0 g/dL Low 3.2-5.0 [facility] Albumin to globulin ratioOrd ered By: Aleks Marshall on 05-17-2024 Albumin to globulin ratio 0.8 RATIO Low 0.9-2.4 [facility] Basophil percentageOrdered B y: Aleks Marshall on 05-17-2024 Basophil percentage 0.9 % 0-[address] [facility] Bilirubin, totalOrdered By: Aleks Marshall on 05-17-2024 Bilirubin, total 0.30 mg/dL 0.20-1.00 [facility] CBC W/Diff, Automatedon Absolute Lymph 1.66 X10 3/uL Normal 0.83-4.51 [facility] Comment on above: Performed By: #### L 500.4050, L501.2300, L501.5200, L100.0100 ####[facility] [address] [place], [address] Absolute Neut 4.6 X10 3/uL Normal 2.0-7.7 [facility] Comment on above: Performed By: #### L 500.4050, L501.2300, L501.5200, L100.0100 ####[facility] [address] [place], [address] Basophils/100 WBC (Bld) 0.9 % Normal 0-[address] [facility] Comment on above: Performed By: #### L 500.4050, L501.2300, L501.5200, L100.0100 ####[facility] [address] [place], [address] Eosinophils/100 WBC (Bld) 5.1 % High 0-5 [facility] Comment on above: Performed By: #### L 500.4050, L501.2300, L501.5200, L100.0100 ####[facility] [address] [place], [address] Erythrocyte distribution width (RBC) [Ratio] 14.3 % Normal 11.6-14.6 [facility] Comment on above: Performed By: #### L 500.4050, L501.2300, L501.5200, L100.0100 ####[facility] [address] [place], [address] Hematocrit (Bld) [Volume fraction] 34.6 % Low 37-47 [facility] Comment on above: Performed By: #### L 500.4050, L501.2300, L501.5200, L100.0100 ####[facility] [address] [place], [address] Hemoglobin (Bld) [Mass/Vol] 10.7 g/dL Low 12.0-15.0 [facility] Comment on above: Performed By: #### L 500.4050, L501.2300, L501.5200, L100.0100 ####[facility] [address] [place], [address] IG% 0.700 Normal 0.0-0.9 [facility] Comment on above: Result Comment: IG% - Immature Granulocytes (promyelocytes, myelocytes andmetamyelocytes) > 1% indicates that a LEFT SHIFT is Present. Performed By: #### L 500.4050, L501.2300, L501.5200, L100.0100 ####[facility] [address] [place], [address] Lymphocytes/100 WBC (Bld) 21.8 % Normal 19-41 [facility] Comment on above: Performed By: #### L 500.4050, L501.2300, L501.5200, L100.0100 ####[facility] [address] [place], [address] MCH (RBC) [Entitic mass] 28.1 pg Normal 27.0-32.0 [facility] Comment on above: Performed By: #### L 500.4050, L501.2300, L501.5200, L100.0100 ####[facility] [address] [place], [address] MCHC (RBC) [Mass/Vol] 30.9 g/dL Low 32-36 [facility] Comment on above: Performed By: #### L 500.4050, L501.2300, L501.5200, L100.0100 ####[facility] [address] [place], [address] MCV (RBC) [Entitic vol] 90.8 fL Normal 81-99 [facility] Comment on above: Performed By: #### L 500.4050, L501.2300, L501.5200, L100.0100 ####[facility] [address] [place], [address] Monocytes/100 WBC (Bld) 10.8 % High 0-[address] [facility] Comment on above: Performed By: #### L 500.4050, L501.2300, L501.5200, L100.0100 ####[facility] [address] [place], [address] Neutrophils/100 WBC (Bld) 60.7 % Normal 47-70 [facility] Comment on above: Performed By: #### L 500.4050, L501.2300, L501.5200, L100.0100 ####[facility] [address] [place], [address] Nucleated RBC (Bld) [#/Vol] 0 10*3/uL Normal 0-5 [facility] Comment on above: Performed By: #### L 500.4050, L501.2300, L501.5200, L100.0100 ####[facility] [address] [place], [address] Platelet mean volume (Bld) [Entitic vol] 9.7 fL Normal 6.2-12.0 [facility] Comment on above: Performed By: #### L 500.4050, L501.2300, L501.5200, L100.0100 ####[facility] [address] [place], [address] Platelets (Bld) [#/Vol] 369 10*3/uL Normal 150-450 [facility] Comment on above: Performed By: #### L 500.4050, L501.2300, L501.5200, L100.0100 ####[facility] [address] [place], [address] RBC (Bld) [#/Vol] 3.81 10*6/uL Low 4.2-5.[address] [facility] Comment on above: Performed By: #### L 500.4050, L501.2300, L501.5200, L100.0100 ####[facility] [address] [place], [address] RDW SD 47.6 fl High 35.1-43.9 [facility] Comment on above: Performed By: #### L 500.4050, L501.2300, L501.5200, L100.0100 ####[facility] [address] [place], [address] WBC (Bld) [#/Vol] 7.6 10*3/uL Normal 4.4-11.[address] [facility] Comment on above: Performed By: #### L 500.4050, L501.2300, L501.5200, L100.0100 ####[facility] [address] [place], [address] Comprehensive Metabolic Prof ilon 05-17-2024 Albumin [Mass/Vol] 3.0 g/dL Low 3.2-5.[address] [facility] Comment on above: Performed By: #### L 500.4050, L501.2300, L501.5200, L100.0100 ####[facility] [address] [place], [address] Albumin/Globulin [Mass ratio] 0.8 {ratio} Low 0.9-2.4 [facility] Comment on above: Performed By: #### L 500.4050, L501.2300, L501.5200, L100.0100 ####[facility] [address] [place], [address] ALK P 59 U/L Normal 45-117 [facility] Comment on above: Performed By: #### L 500.4050, L501.2300, L501.5200, L100.0100 ####[facility] [address] [place], [address] ALT [Catalytic activity/Vol] 20 U/L Normal 13-56 [facility] Comment on above: Performed By: #### L 500.4050, L501.2300, L501.5200, L100.0100 ####[facility] [address] [place], [address] AST [Catalytic activity/Vol] 28 U/L Normal 15-37 [facility] Comment on above: Performed By: #### L 500.4050, L501.2300, L501.5200, L100.0100 ####[facility] [address] [place], [address] Bilirubin [Mass/Vol] 0.30 mg/dL Normal 0.20-1.00 [facility] Comment on above: Result Comment: For patients on eltrombopag therapy, use of Dimension [place] TBIL is not recommended. Performed By: #### L 500.4050, L501.2300, L501.5200, L100.0100 ####[facility] [address] [place], [address] BUN/CRE 34.4 RATIO High 10-20 [facility] Comment on above: Performed By: #### L 500.4050, L501.2300, L501.5200, L100.0100 ####[facility] [address] [place], [address] CA,Total 8.8 mg/dL Normal 8.5-10.1 [facility] Comment on above: Performed By: #### L 500.4050, L501.2300, L501.5200, L100.0100 ####[facility] [address] [place], [address] Chloride [Moles/Vol] 106 mmol/L Normal 98-107 [facility] Comment on above: Performed By: #### L 500.4050, L501.2300, L501.5200, L100.0100 ####[facility] [address] [place], [address] CO2 [Moles/Vol] 25.0 mmol/L Normal 21.0-32.0 [facility] Comment on above: Performed By: #### L 500.4050, L501.2300, L501.5200, L100.0100 ####[facility] [address] [place], [address] Creatinine [Mass/Vol] 0.82 mg/dL Normal 0.55-1.02 [facility] Comment on above: Result Comment: The validity of the calculated GFR GFRAA in patients over70 years has not been determined. Clinical correlation isessential. Performed By: #### L 500.4050, L501.2300, L501.5200, L100.0100 ####[facility] [address] [place], [place] [address] ECRCL 42.52 ml/min Normal [facility] Comment on above: Performed By: #### L 500.4050, L501.2300, L501.5200, L100.0100 ####[facility] [address] [place], [address] EST GFR - AA 85 mL/min Normal >60 [facility] Comment on above: Result Comment: Afri can Armenian GFR Calc Performed By: #### L 500.4050, L501.2300, L501.5200, L100.0100 ####[facility] [address] [place], [address] GAP 5 Normal 5-15 [facility] Comment on above: Performed By: #### L 500.4050, L501.2300, L501.5200, L100.0100 ####[facility] [address] [place], [address] GFR/1.73 sq M.predicted among non-blacks MDRD (S/P/Bld) [Vol rate/Area] 70 mL/min/{1.73_m2} Normal >60 [facility] Comment on above: Result Comment: Non- GFR Calc Performed By: #### L 500.4050, L501.2300, L501.5200, L100.0100 ####[facility] [address] [place], [address] Globulin (S) [Mass/Vol] 3.7 g/dL Normal 2.2-4.2 [facility] Comment on above: Performed By: #### L 500.4050, L501.2300, L501.5200, L100.0100 ####[facility] [address] [place], [address] Glucose [Mass/Vol] 102 mg/dL Normal 74-[address] [facility] Comment on above: Result Comment: Fast ing Glucose result from 100 to 125 mg/dLsuggests IMPAIRED HOMEOSTASIS per A.D.A. criteria. Performed By: #### L 500.4050, L501.2300, L501.5200, L100.0100 ####[facility] [address] [place], [address] Potassium [Moles/Vol] 4.1 mmol/L Normal 3.5-5.1 [facility] Comment on above: Performed By: #### L 500.4050, L501.2300, L501.5200, L100.0100 ####[facility] [address] [place], [address] Sodium [Moles/Vol] 136 mmol/L Normal 136-[address] [facility] Comment on above: Performed By: #### L 500.4050, L501.2300, L501.5200, L100.0100 ####[facility] [address] [place], [address] T PROT 6.7 g/dL Normal 6.4-8.2 [facility] Comment on above: Performed By: #### L 500.4050, L501.2300, L501.5200, L100.0100 ####[facility] [address] [place], [address] Urea nitrogen [Mass/Vol] 28 mg/dL High 7-18 [facility] Comment on above: Performed By: #### L 500.4050, L501.2300, L501.5200, L100.0100 ####[facility] [address] [place], [address] Eosinophil percentageOrdered By: Aleks Marshall on 05-17-2024 Eosinophil percentage 5.1 % High 0-5 [facility] Immature granulocytes/100 WB C Auto (Bld)Ordered By: Aleks Marshall on 05-17-2024 Automated immature granulocyte percentage 0.700 % 0.0-0.9 [facility] Lymphocytes Auto (Unsp spec) [#/Vol]Ordered By: Aleks Marshall on 05-17-2024 Absolute lymphocyte count 1.66 X10^3/uL 0.83-4.51 [facility] Lymphocytes/100 WBC Auto (Un sp spec)Ordered By: Aleks Marshall on 05-17-2024 Automated lymphocyte count as percentage of total leukocytes 21.8 % 19-41 [facility] Magnesiumon 05-17-2024 Magnesium [Mass/Vol] 2.4 mg/dL Normal 1.6-2.6 [facility] Comment on above: Performed By: #### L 500.4050, L501.2300, L501.5200, L100.0100 ####[facility] [address] [place], [place], [address] Monocyte percentageOrdered B y: Aleks Marshall on 05-17-2024 Monocyte percentage 10.8 % High 0-[address] [facility] Neutrophil percentageOrdered By: Aleks Marshall on 05-17-2024 Neutrophil percentage 60.7 % 47-70 [facility] No Panel InformationOrdered By: Aleks Marshall on 05-17-2024 28 U/L 15-37 [facility] Nucleated red blood cell per centageOrdered By: Aleks Marshall on 05-17-2024 Nucleated red blood cell percentage 0 % 0-5 [facility] Phosphoruson 05-17-2024 Phosphate [Mass/Vol] 2.4 mg/dL Low 2.5-4.9 [facility] Comment on above: Performed By: #### L 500.4050, L501.2300, L501.5200, L100.0100 ####[facility] [address] [place], [address] Serum globulin measurementOr dered By: Aleks Marshall on 05-17-2024 Serum globulin measurement 3.7 g/dL 2.2-4.2 [facility] Total proteinOrdered By: Aleks Marshall on 05-17-2024 Total protein 6.7 g/dL 6.4-8.2 [facility] Urinalysis, Completeon 05-17 WBC 5-10 SEEN Normal 0-5 [facility] Comment on above: Order Comment: COLT TER SPECIMEN Performed By: #### L 400.0001 ####[facility] [address] [place], [address] BACTERIA 0 SEEN Normal None Seen [facility] Comment on above: Order Comment: COLT TER SPECIMEN Performed By: #### L 400.0001 ####[facility] [address] [place], [address] EPI,SQUAMOUS 0 SEEN Normal 5-10 [facility] Comment on above: Order Comment: COLT TER SPECIMEN Performed By: #### L 400.0001 ####[facility] [address] [place], [address] Mucus Ql (Urine sed) 0 SEEN Normal [facility] Comment on above: Order Comment: COLT TER SPECIMEN Performed By: #### L 400.0001 ####[facility] [address] [place], [address] RBC 0 SEEN Normal 0-5 [facility] Comment on above: Order Comment: COLT TER SPECIMEN Performed By: #### L 400.0001 ####[facility] [address] [place], [address] Urine cultureOrdered By: Aleks Marshall on 05-17-2024 Urine culture Escherichia coli Abnormal [facility] ALLIED HEALTHon 05-16-2024 ALLIED HEALTH HNO ID: [id number] Author: TOMER TRAN Art Therapist Service: Art Therapy Author Type: Therapist Type: Allied Health Filed: 05/16/2024 12:15 Note Text: ART THERAPY NOTE SERVICE DATE: 05/16/2024 SERVICE TIME: 10:30AM Referred By: OT Reason for Referral: Anxiety / Coping Skills / Depressed Mood / Self-Expression / Motor Session Type: Initial COMMENTS: Consult received and appreciated. 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 Pt shared anticipation of discharge today, pending blood pressure. Declined formal session but welcomed materials for independent use. Shared interest in formal session if admitted through the week. Provided desired materials and shared to follow pending availability. Denied further needs and expressed appreciation. Will follow up as able. SIGNATURE: Mckinley Duron Therapist PATIENT NAME: Harjit Solomon DATE: May 16, 2024 TIME: 12:13 PM PAGER/CONTACT #: [phone] Normal [facility] Brain/Head without Contrasto n 05-16-2024 Brain/Head without Contrast Normal [facility] CBC panel Auto (Bld)on 05-16 Erythrocyte distribution width (RBC) [Ratio] 13.9 % Normal 11.5-15.0 [facility] Comment on above: Order Comment: Speci men Type: BLOOD SPECIMENOrdering Facility: [facility] Address: [address] [address] Performed By: #### 5 8410-2 ####[facility] LABCLIA [id number] [place] [address] [place] Hematocrit (Bld) [Volume fraction] 33.9 % Low 36.0-46.0 [facility] Comment on above: Order Comment: Speci men Type: BLOOD SPECIMENOrdering Facility: [facility] Address: [address] [place] [address] Performed By: #### 5 8410-2 ####[facility] LABIA [id number] [place] [address] [place] Hemoglobin (Bld) [Mass/Vol] 10.7 g/dL Low 11.5-15.5 [facility] Comment on above: Order Comment: Speci men Type: BLOOD SPECIMENOrdering Facility: [facility] Address: [address] [place] [address] Performed By: #### 5 8410-2 ####[facility] LABIA [id number] [place] [address] [place] MCH (RBC) [Entitic mass] 28.5 pg Normal 26.0-34.0 [facility] Comment on above: Order Comment: Speci men Type: BLOOD SPECIMENOrdering Facility: [facility] Address: [address] [place] [address] Performed By: #### 5 8410-2 ####[facility] [id number] [place] [address] [place] MCHC (RBC) [Mass/Vol] 31.6 g/dL Normal 30.5-36.0 [facility] Comment on above: Order Comment: Speci men Type: BLOOD SPECIMENOrdering Facility: [facility] Address: [address] [place] [address] Performed By: #### 5 8410-2 ####[facility] LABIA [id number] [place] [address] [place] MCV (RBC) [Entitic vol] 90.4 fL Normal 80.0-100.0 C [facility] Comment on above: Order Comment: Speci men Type: BLOOD SPECIMENOrdering Facility: [facility] Address: [address] [place] [address] Performed By: #### 5 8410-2 ####[facility] LABIA [id number] [place] [address] [place] Nucleated RBC (Bld) [#/Vol] 10*3/uL Normal <0.01 [facility] Comment on above: Order Comment: Speci men Type: BLOOD SPECIMENOrdering Facility: [facility] Address: [address] [place] [address] Performed By: #### 5 8410-2 ####[facility] LABCLIA [id number] [place] [address] [place] Platelet mean volume (Bld) [Entitic vol] 9.8 fL Normal 9.0-12.7 [facility] Comment on above: Order Comment: Speci men Type: BLOOD SPECIMENOrdering Facility: [facility] Address: [address] [place] [address] Performed By: #### 5 8410-2 ####[facility] LABCLIA [id number] [place] [address] [place] Platelets (Bld) [#/Vol] 333 10*3/uL Normal 150-400 [facility] Comment on above: Order Comment: Speci men Type: BLOOD SPECIMENOrdering Facility: [facility] Address: [address] [place] [address] Performed By: #### 5 8410-2 ####[facility] LABCLIA [id number] [place] [address] [place] RBC (Bld) [#/Vol] 3.75 10*6/uL Low 3.90-5.20 [facility] Comment on above: Order Comment: Speci men Type: BLOOD SPECIMENOrdering Facility: [facility] Address: [address] [place] [address] Performed By: #### 5 8410-2 ####[facility] LABCLIA [id number] [place] [address] [place] WBC (Bld) [#/Vol] 7.15 10*3/uL Normal 3.70-11.00 [facility] Comment on above: Order Comment: Speci men Type: BLOOD SPECIMENOrdering Facility: [facility] Address: [address] [place] [address] Performed By: #### 5 8410-2 ####[facility] LABCLIA [id number] [address] [place] [address] [facility] CNDSon 05-16-2024 CNDS HNO ID: [id number] Author: CARI WONG MD, PhD Service: Neurology [...] hemorrhage (HCC) (POA: Yes) Current use of [facility] anticoagulation (POA: Yes) Restless leg syndrome (POA: [...] Right ventricul (more content not included)... Normal [facility] NURSING PROGon 05-16-2024 NURSING PROG HNO ID: [id number] Author: PEEWEE GAGNON, RN Service: Nursing Author [...] a warm blanket over her legs. Normal [facility] Renal function 2000 panelon 05-16-2024 Albumin [Mass/Vol] 3.6 g/dL Low 3.9-4.9 [facility] Comment on above: Order Comment: Speci men Type: BLOOD SPECIMENOrdering Facility: [facility] Address: [address] [place] [address] Performed By: #### 2 4362-6 ####[facility] LABCLIA [id number] [facility] [id number] [address] [place] Anion gap [Moles/Vol] 12 mmol/L Normal 8-15 [facility] Comment on above: Order Comment: Speci men Type: BLOOD SPECIMENOrdering Facility: [facility] Address: [address] [place] [address] Performed By: #### 2 4362-6 ####[facility] LABCLIA [id number] [address] [address] [place] Calcium [Mass/Vol] 8.9 mg/dL Normal 8.5-10.2 [facility] Comment on above: Order Comment: Speci men Type: BLOOD SPECIMENOrdering Facility: [facility] Address: [address] [place] [address] Performed By: #### 2 4362-6 ####[facility] LABCLIA [id number] [place] [address] [place] Chloride [Moles/Vol] 102 mmol/L Normal 98-107 [facility] Comment on above: Order Comment: Speci men Type: BLOOD SPECIMENOrdering Facility: [facility] Address: [address] [place] [address] Performed By: #### 2 4362-6 ####[facility] LABCLIA [id number] [place] [address] [place] CO2 [Moles/Vol] 24 mmol/L Normal 22-30 [facility] Comment on above: Order Comment: Speci men Type: BLOOD SPECIMENOrdering Facility: [facility] Address: [address] [place] [address] Performed By: #### 2 4362-6 ####[facility] LABCLIA [id number] [place] [address] [place] Creatinine [Mass/Vol] 0.87 mg/dL Normal 0.58-0.96 [facility] Comment on above: Order Comment: Speci men Type: BLOOD SPECIMENOrdering Facility: [facility] Address: [address] [place] [address] Performed By: #### 2 4362-6 ####[facility] LABCLIA [id number] [place] [address] [place] Creatinine and Glomerular filtration rate.predicted panel (S/P/Bld) 64 mL/min/1.73m??? Normal >=60 [facility] Comment on above: Order Comment: Christopher hurd Type: BLOOD SPECIMENOrdering Facility: [facility] Address: [address] [place] [address] Result Comment: Michael mated Glomerular Filtration Rate [...] actual GFR. Performed By: #### 2 4362-6 ####[facility] LABIA [id number] [place] [address] [place] Glucose [Mass/Vol] 95 mg/dL Normal 74-99 [facility] Comment on above: Order Comment: Christopher hurd Type: BLOOD SPECIMENOrdering Facility: [facility] Address: [address] [address] Result Comment: The [place] Diabetes Association (ADA) provides guidance for cutoff [...] Standards of Medical Care in Diabetes 2016, [place] [employer]. Diabetes Care. 2016.39(Suppl 1). Performed By: #### 2 4362-6 ####[facility] [id number] [place] [address] [place] Phosphate [Mass/Vol] 2.7 mg/dL Normal 2.7-4.8 [facility] Comment on above: Order Comment: Christopher hurd Type: BLOOD SPECIMENOrdering Facility: [facility] Address: [address] [place] [address] Performed By: #### 2 4362-6 ####[facility] LABCLIA [id number] [place] [address] [place] Potassium [Moles/Vol] 4.4 mmol/L Normal 3.7-5.1 [facility] Comment on above: Order Comment: Speci men Type: BLOOD SPECIMENOrdering Facility: [facility] Address: [address] [place] [address] Performed By: #### 2 4362-6 ####[facility] LABCLIA [id number] [place] [address] [place] Sodium [Moles/Vol] 138 mmol/L Normal 136-144 [facility] Comment on above: Order Comment: Speci men Type: BLOOD SPECIMENOrdering Facility: [facility] Address: [address] [place] [address] Performed By: #### 2 4362-6 ####[facility] LABIA [id number] [place] [address] [place] Urea nitrogen [Mass/Vol] 27 mg/dL High 7-21 [facility] Comment on above: Order Comment: Speci men Type: BLOOD SPECIMENOrdering Facility: [facility] Address: [address] [place] [address] Performed By: #### 2 4362-6 ####[facility] LABCLIA [id number] [place] [address] [place] CBC panel Auto (Bld)on 05-15 Erythrocyte distribution width (RBC) [Ratio] 14.1 % Normal 11.5-15.0 [facility] Comment on above: Order Comment: Speci men Type: BLOOD SPECIMENOrdering Facility: [facility] Address: [address] [place] [address] Performed By: #### 5 8410-2 ####[facility] LABIA [id number] [place] [address] [place] Hematocrit (Bld) [Volume fraction] 33.7 % Low 36.0-46.0 [facility] Comment on above: Order Comment: Speci men Type: BLOOD SPECIMENOrdering Facility: [facility] Address: [address] [place] [address] Performed By: #### 5 8410-2 ####[facility] LABIA [id number] [place] [address] [place] Hemoglobin (Bld) [Mass/Vol] 10.8 g/dL Low 11.5-15.5 [facility] Comment on above: Order Comment: Speci men Type: BLOOD SPECIMENOrdering Facility: [facility] Address: [address] [place] [address] Performed By: #### 5 8410-2 ####[facility] LABCLIA [id number] [place] [address] [place] MCH (RBC) [Entitic mass] 29.0 pg Normal 26.0-34.0 [facility] Comment on above: Order Comment: Speci men Type: BLOOD SPECIMENOrdering Facility: [facility] Address: [address] [place] [address] Performed By: #### 5 8410-2 ####[facility] LABIA [id number] [place] [address] [place] MCHC (RBC) [Mass/Vol] 32.0 g/dL Normal 30.5-36.0 [facility] Comment on above: Order Comment: Speci men Type: BLOOD SPECIMENOrdering Facility: [facility] Address: [address] [place] [address] Performed By: #### 5 8410-2 ####[facility] LABCLIA [id number] [place] [address] [place] MCV (RBC) [Entitic vol] 90.3 fL Normal 80.0-100.0 C [facility] Comment on above: Order Comment: Speci men Type: BLOOD SPECIMENOrdering Facility: [facility] Address: [address] [address] Performed By: #### 5 8410-2 ####[facility] LABCLIA [id number] [place] [address] [place] Nucleated RBC (Bld) [#/Vol] 10*3/uL Normal <0.01 [facility] Comment on above: Order Comment: Speci men Type: BLOOD SPECIMENOrdering Facility: [facility] Address: [address] [place] [address] Performed By: #### 5 8410-2 ####[facility] LABIA [id number] [place] [address] [place] Platelet mean volume (Bld) [Entitic vol] 9.5 fL Normal 9.0-12.7 [facility] Comment on above: Order Comment: Speci men Type: BLOOD SPECIMENOrdering Facility: [facility] Address: [address] [place] [address] Performed By: #### 5 8410-2 ####[facility] LABIA [id number] [place] [address] [place] Platelets (Bld) [#/Vol] 342 10*3/uL Normal 150-400 [facility] Comment on above: Order Comment: Speci men Type: BLOOD SPECIMENOrdering Facility: [facility] Address: [address] [address] Performed By: #### 5 8410-2 ####[facility] LABIA [id number] [place] [address] [place] RBC (Bld) [#/Vol] 3.73 10*6/uL Low 3.90-5.20 [facility] Comment on above: Order Comment: Speci men Type: BLOOD SPECIMENOrdering Facility: [facility] Address: [address] [place] [address] Performed By: #### 5 8410-2 ####[facility] LABCLIA [id number] [place] [address] [place] WBC (Bld) [#/Vol] 8.17 10*3/uL Normal 3.70-11.00 [facility] Comment on above: Order Comment: Speci men Type: BLOOD SPECIMENOrdering Facility: [facility] Address: [address] [place] [address] Performed By: #### 5 8410-2 ####[facility] LABCLIA [id number] [place] [address] [place] Renal function 2000 panelon 05-15-2024 Albumin [Mass/Vol] 3.4 g/dL Low 3.9-4.9 [facility] Comment on above: Order Comment: Speci men Type: BLOOD SPECIMENOrdering Facility: [facility] Address: [address] [place] [address] Performed By: #### 2 4362-6 ####[facility] LABIA [id number] [place] [address] [place] Anion gap [Moles/Vol] 12 mmol/L Normal 8-15 [facility] Comment on above: Order Comment: Speci men Type: BLOOD SPECIMENOrdering Facility: [facility] Address: [address] [place] [address] Performed By: #### 2 4362-6 ####[facility] LABIA [id number] [place] [address] [place] Calcium [Mass/Vol] 8.6 mg/dL Normal 8.5-10.2 [facility] Comment on above: Order Comment: Speci men Type: BLOOD SPECIMENOrdering Facility: [facility] Address: [address] [place] [address] Performed By: #### 2 4362-6 ####[facility] LABIA [id number] [place] [address] [place] Chloride [Moles/Vol] 100 mmol/L Normal 98-107 [facility] Comment on above: Order Comment: Speci men Type: BLOOD SPECIMENOrdering Facility: [facility] Address: [address] [place] [address] Performed By: #### 2 4362-6 ####[facility] LABCLIA [id number] [place] [address] [place] CO2 [Moles/Vol] 23 mmol/L Normal 22-30 [facility] Comment on above: Order Comment: Speci men Type: BLOOD SPECIMENOrdering Facility: [facility] Address: [address] [place] [address] Performed By: #### 2 4362-6 ####[facility] LABCLIA [id number] [place] [address] [place] Creatinine [Mass/Vol] 0.76 mg/dL Normal 0.58-0.96 [facility] Comment on above: Order Comment: Speci men Type: BLOOD SPECIMENOrdering Facility: [facility] Address: [address] [place] [address] Performed By: #### 2 4362-6 ####[facility] LABCLIA [id number] [address] [place] Creatinine and Glomerular filtration rate.predicted panel (S/P/Bld) 75 mL/min/1.73m??? Normal >=60 [facility] Comment on above: Order Comment: Speci men Type: BLOOD SPECIMENOrdering Facility: [facility] Address: [address] [address] Result Comment: Michael mated Glomerular Filtration Rate [...] actual GFR. Performed By: #### 2 4362-6 ####[facility] LABIA [id number] [place] [address] [place] Glucose [Mass/Vol] 90 mg/dL Normal 74-99 [facility] Comment on above: Order Comment: Speci men Type: BLOOD SPECIMENOrdering Facility: [facility] Address: [address] [place] [address] Result Comment: The [place] [employer] (ADA) provides guidance for cutoff [...] Standards of Medical Care in Diabetes 2016, [place] [employer]. Diabetes Care. 2016.39(Suppl 1). Performed By: #### 2 4362-6 ####[facility] LABIA [id number] [place] [address] [place] Phosphate [Mass/Vol] 2.4 mg/dL Low 2.7-4.8 [facility] [facility] Comment on above: Order Comment: Speci men Type: BLOOD SPECIMENOrdering Facility: [facility] Address: [address] [place] [address] Performed By: #### 2 4362-6 ####[facility] [id number] [place] [address] [place] Potassium [Moles/Vol] 4.1 mmol/L Normal 3.7-5.1 [facility] Comment on above: Order Comment: Speci men Type: BLOOD SPECIMENOrdering Facility: [facility] Address: [address] [address] Performed By: #### 2 4362-6 ####[facility] [id number] [place] [address] [place] Sodium [Moles/Vol] 135 mmol/L Low 136-144 [facility] Comment on above: Order Comment: Speci men Type: BLOOD SPECIMENOrdering Facility: [facility] Address: [address] [place] [address] Performed By: #### 2 4362-6 ####[facility] [id number] [place] [address] [place] Urea nitrogen [Mass/Vol] 20 mg/dL Normal 7-21 [facility] Comment on above: Order Comment: Speci men Type: BLOOD SPECIMENOrdering Facility: [facility] Address: [address] [place] [address] Performed By: #### 2 4362-6 ####[facility] [id number] [address] [place] ALLIED HEALTHon 05-14-2024 ALLIED HEALTH HNO ID: [id number] Author: YVONNE VICTOR Chaplain Student Service: Spiritual Care Author Type: Student Type: Allied Health Filed: 05/14/2024 13:17 Note Text: SPIRITUAL CARE ASSESSMENT SERVICE DATE: 05/14/2024 SERVICE TIME: 12:30 Visit with: Patient Length of visit (minutes): 30 Roman Catholic / Spirituality: Bakarian Reason: Referral from: Other Health Care Worker: [...] with a bible for her. SIGNATURE: Chaplain Jesus Ayoub PATIENT NAME: Harjit Solomon DATE: May 14, 2024 TIME: 1:11 PM PAGER/CONTACT #: [phone] [facility] ALLIED HEALTH HNO ID: [id number] Author: YVONNE VICTOR Chaplain Student Service: Spiritual [...] FROM THE CHART OR MODIFY PRINTED COPY. [facility] CASE MANAGEMon 05-14-2024 CASE MANAGEM HNO ID: [id number] Author: ?, ?, ? Service: ? Author Type: ? Type: Care Mgt Progress Note Filed: 05/14/2024 16:27 Note Text: CARE MANAGEMENT PROGRESS NOTE SERVICE DATE: 05/14/2024 SERVICE TIME: 4:27 PM LOS: 3 days Discharge packet completed and dropped off by stonecutter assistant Topher White. Packet is missing AVS/DC forms, please reach out to family caseworker with any discharge related questions. SIGNATURE: Topher White PATIENT NAME: Harjit Solomon DATE: May 14, 2024 TIME: 4:27 PM [facility] CASE MGT INIT ASSESon 2024 CASE MGT INIT ASSES HNO ID: [id number] Author: CYNTHIA ORLANDO RN Service: ? Author [...] by: Per Department Practice Potential Transition Plans Prison Facility/Intermediat e Care Facility Advance Directives Current Advance Directive: Living Will;Health Care Power of Heel Slicker In Chart: No Dimensional Integration Engineer Attempted to Assist with AD Completion: Yes [...] Patient's Other Post-Acute Care Goal(s): Get Better [place] of Choice Explained: [place] of Choice Given: Yes Level of Care Discussed: Prison Facility Are you interested in bedside delivery of your medications? No Discharge Planning Participant(s): Patient;Children Patient/Family Comments: Caregiver Assessment: Caregiver is ready, willing and able to meet the patient's needs as recommended by the inter-professional team: No Caregiver needed Transport at Discharge: Transportation Arrangements: Ambulance Needs Prior to Discharge: Needs Prior to Discharge: Accepting Facility;Bed Availability;Dischar Transportation Post-Acute Discharge Plan: Per Medical Record: 89 yo F w/ PMH HTN, HLD, pAF on warfarin, NEL on CPAP, osteoporosis, secondary hypothyroidism transferred from [place] ED May 11, 2024 for ICH monitoring. [...] home from the garage. 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 Uses a walker to assist with ambulation. No prior oxygen. Uses a Bipap at night. Retired, manages own medications, does not drive. Family provides transportation. No financial concerns per patient. MARIA ESTHER planned for today. Skilled for SNF. Discussed with patient, and she requested referrals be sent to: [facility] in [place] and [facility] SNF. [facility] tasked to build and send referral. Await response. Medically ready for discharge tomorrow. Will need; accepting facility and transport arranged. No precert required. CM will follow. Update 5pm: patient has been accepted by [facility] for their rehab program. Both patient and medical team are in agreement. A bed will be available on Friday, 05/16. S transport set for 05/16/2024 at 2pm, trip #[id number] DC packet completed by PALLET RECTIFIER's and placed with patient's green chart. Nurse report number is [phone]. Patient updated on transport time for Friday. SIGNATURE: Cynthia Orlando RN PATIENT NAME: Harjit Solomon DATE: May 14, 2024 TIME: 11:31 AM [facility] CBC panel Auto (Bld)on 05-14 Erythrocyte distribution width (RBC) [Ratio] 14.5 % Normal 11.5-15.0 [facility] Comment on above: Order Comment: Speci men Type: BLOOD SPECIMENOrdering Facility: [facility] Address: [address] [place] [address] Performed By: #### 5 8410-2 ####[facility] [id number] [place] [address] [place] Hematocrit (Bld) [Volume fraction] 33.7 % Low 36.0-46.0 [facility] Comment on above: Order Comment: Speci men Type: BLOOD SPECIMENOrdering Facility: [facility] Address: [address] [address] Performed By: #### 5 8410-2 ####[facility] [id number] [place] [address] [place] Hemoglobin (Bld) [Mass/Vol] 10.5 g/dL Low 11.5-15.5 [facility] Comment on above: Order Comment: Speci men Type: BLOOD SPECIMENOrdering Facility: [facility] Address: [address] [address] Performed By: #### 5 8410-2 ####[facility] [id number] [place] [address] [place] MCH (RBC) [Entitic mass] 28.8 pg Normal 26.0-34.0 [facility] Comment on above: Order Comment: Speci men Type: BLOOD SPECIMENOrdering Facility: [facility] Address: [address] [place], [place] [address] Performed By: #### 5 8410-2 ####[facility] [id number] [place] [address] [place] MCHC (RBC) [Mass/Vol] 31.2 g/dL Normal 30.5-36.0 [facility] Comment on above: Order Comment: Speci men Type: BLOOD SPECIMENOrdering Facility: [facility] Address: [address] [place] [address] Performed By: #### 5 8410-2 ####[facility] [id number] [place] [address] [place] MCV (RBC) [Entitic vol] 92.6 fL Normal 80.0-100.0 [facility] Comment on above: Order Comment: Speci men Type: BLOOD SPECIMENOrdering Facility: [facility] Address: [address] [place] [address] Performed By: #### 5 8410-2 ####[facility] [id number] [place] [address] [place] Nucleated RBC (Bld) [#/Vol] 10*3/uL Normal <0.01 [facility] Comment on above: Order Comment: Speci men Type: BLOOD SPECIMENOrdering Facility: [facility] Address: [address] [place] [address] Performed By: #### 5 8410-2 ####[facility] [id number] [place] [address] [place] Platelet mean volume (Bld) [Entitic vol] 9.3 fL Normal 9.0-12.7 [facility] Comment on above: Order Comment: Speci men Type: BLOOD SPECIMENOrdering Facility: [facility] Address: [address] [place] [address] Performed By: #### 5 8410-2 ####[facility] [id number] [place] [address] [place] Platelets (Bld) [#/Vol] 336 10*3/uL Normal 150-400 [facility] Comment on above: Order Comment: Speci men Type: BLOOD SPECIMENOrdering Facility: [facility] Address: [address] [place] [address] Performed By: #### 5 8410-2 ####[facility] [id number] [place] [address] [place] RBC (Bld) [#/Vol] 3.64 10*6/uL Low 3.90-5.20 [facility] Comment on above: Order Comment: Speci men Type: BLOOD SPECIMENOrdering Facility: [facility] Address: [address] [place] [address] Performed By: #### 5 8410-2 ####[facility] [id number] [place] [address] [place] WBC (Bld) [#/Vol] 6.22 10*3/uL Normal 3.70-11.00 [facility] Comment on above: Order Comment: Speci men Type: BLOOD SPECIMENOrdering Facility: [facility] Address: [address] [place] [address] Performed By: #### 5 8410-2 ####[facility] [id number] [place] [address] [place] CNOVon 05-14-2024 CNOV Office Visit (CAFLMN) Harjit SOLOMON ([id number]) 1935 F Date Time Provider Department 05/14/24 [...] Upset Comments: States had GI bleed ADHES. [facility]-BALPAYORTD [facility] 12/09/2007 BEETS 05/28/2011 2 - Rash [...] by: Damari Wiggins, RN - Fully Assessed Primary Visit Diagnosis:Essential [...] 02/19/2012 Insomnia, unspecified [G47.00] 02/11/2007 02/19/2012 NIGHTMARE [BIR9765] 02/11/2007 04/12/2014 LUMBAR RADICULITIS [[id number]] 02/11/2007 BACKACHE NOS [M54.9] 02/17/2007 MITRAL INSUFFICIENCY [...] [E21.3] 05/12 (more content not included)... [facility] ECHO TRANSESOPHAGEALon 05-14 ECHO TRANSESOPHAGEAL Echocardiography Report: Transesophageal Echo [facility] J1-5 Date of service: 05/14/2024 11:28:35 AM PLANT TREATER Ordering physician: CARI WONG Indication: ?Endocarditis Technologist: [...] * * Final * * * CC [employer] : [id number] Normal [facility] NURSING PROGon 05-14-2024 NURSING PROG HNO ID: [id number] Author: DAMARI WIGGINS, ALBERT Service: ? Author Type: Registered Nurse Type: [...] Damari Wiggins RN In Department: CARDIOLOGY [facility] NURSING PROG HNO ID: [id number] Author: ALBERTO SANTANA RN Service: ? Author Type: Registered Nurse Type: Nursing Progress Note Filed: 05/14/2024 08:52 Note Text: Transfer Note: PATIENT NAME: Harjit Solomon Patient Location: [place] [address] [address] Room: [place] [address] Patient transferred into room/unit 0-41 in stable condition. Actions taken: No futher actions taken at this time. Will continue to monitor and check with patient. [facility] PT panel Coag (PPP)on 2024 INR Coag (PPP) [Relative time] 1.0 {INR} Normal 0.9-1.3 [facility] Comment on above: Order Comment: Speci men Type: BLOOD SPECIMENOrdering Facility: [facility] Address: [address] [place] [address] Result Comment: Nathalie min K Antagonist (VKA) Therapeutic Range: INR 2 to 3 (Target INR of 2.5) Note: For patients treated with VKA drugs, such as warfarin, the [employer] 2012 Guideline recommends [...] Chest 2012, 141:7S-47S Cam RA, et al. [facility] 2017, 70: 252-289 Performed By: #### 3 4528-0 ####[facility] [id number] [place] [address] [place] PT Coag (PPP) [Time] 11.1 s Normal 9.7-13.0 [facility] Comment on above: Order Comment: Speci men Type: BLOOD SPECIMENOrdering Facility: [facility] Address: [address] [place] [address] Performed By: #### 3 4528-0 ####[facility] [id number] [place] [address] [place] Renal function 2000 panelon 05-14-2024 Albumin [Mass/Vol] 3.4 g/dL Low 3.9-4.9 [facility] Comment on above: Order Comment: Speci men Type: BLOOD SPECIMENOrdering Facility: [facility] Address: [address] [place] [address] Performed By: #### 2 4362-6 ####[facility] [id number] [address] [address] [id number] [address] [place] Anion gap [Moles/Vol] 12 mmol/L Normal 8-15 [facility] Comment on above: Order Comment: Speci men Type: BLOOD SPECIMENOrdering Facility: [facility] Address: [address] [address] Performed By: #### 2 4362-6 ####[facility] [id number] [place] [address] [place] Calcium [Mass/Vol] 8.5 mg/dL Normal 8.5-10.2 [facility] Comment on above: Order Comment: Speci men Type: BLOOD SPECIMENOrdering Facility: [facility] Address: [address] [place] [address] Performed By: #### 2 4362-6 ####[facility] [id number] [place] [address] [place] Chloride [Moles/Vol] 103 mmol/L Normal 98-107 [facility] Comment on above: Order Comment: Speci men Type: BLOOD SPECIMENOrdering Facility: [facility] Address: [address] [place] [address] Performed By: #### 2 4362-6 ####[facility] [id number] [place] [address] [place] CO2 [Moles/Vol] 22 mmol/L Normal 22-30 [facility] Comment on above: Order Comment: Speci men Type: BLOOD SPECIMENOrdering Facility: [facility] Address: [address] [address] Performed By: #### 2 4362-6 ####[facility] [id number] [place] [address] [place] Creatinine [Mass/Vol] 0.89 mg/dL Normal 0.58-0.96 [facility] Comment on above: Order Comment: Speci men Type: BLOOD SPECIMENOrdering Facility: [facility] Address: [address] [place] [address] Performed By: #### 2 4362-6 ####[facility] [id number] [place] [address] [facility] [place] Creatinine and Glomerular filtration rate.predicted panel (S/P/Bld) 62 mL/min/1.73m??? Normal >=60 [facility] Comment on above: Order Comment: Christopher hurd Type: BLOOD SPECIMENOrdering Facility: [facility] Address: [address] [address] Result Comment: Michael mated Glomerular Filtration Rate [...] actual GFR. Performed By: #### 2 4362-6 ####[facility] [id number] [place] [address] [place] Glucose [Mass/Vol] 91 mg/dL Normal 74-99 [facility] Comment on above: Order Comment: Christopher hurd Type: BLOOD SPECIMENOrdering Facility: [facility] Address: [address] [address] Result Comment: The [employer] (ADA) provides guidance for cutoff [...] Standards of Medical Care in Diabetes 2016, [employer]. Diabetes Care. 2016.39(Suppl 1). Performed By: #### 2 4362-6 ####[facility] [id number] [place] [address] [place] Phosphate [Mass/Vol] 4.0 mg/dL Normal 2.7-4.8 [facility] Comment on above: Order Comment: Speci men Type: BLOOD SPECIMENOrdering Facility: [facility] Address: [address] [place] [address] Performed By: #### 2 4362-6 ####[facility] [id number] [place] [address] [place] Potassium [Moles/Vol] 4.6 mmol/L Normal 3.7-5.1 [facility] Comment on above: Order Comment: Speci men Type: BLOOD SPECIMENOrdering Facility: [facility] Address: [address] [place] [address] Performed By: #### 2 4362-6 ####[facility] [id number] [place] [address] [place] Sodium [Moles/Vol] 137 mmol/L Normal 136-144 [facility] Comment on above: Order Comment: Speci men Type: BLOOD SPECIMENOrdering Facility: [facility] Address: [address] [place] [address] Performed By: #### 2 4362-6 ####[facility] [id number] [place] [address] [place] Urea nitrogen [Mass/Vol] 23 mg/dL High 7-21 [facility] Comment on above: Order Comment: Speci men Type: BLOOD SPECIMENOrdering Facility: [facility] Address: [address] [place] [address] Performed By: #### 2 4362-6 ####[facility] [id number] [place] [address] [place] THERAPY NTon 05-14-2024 THERAPY NT HNO ID: [id number] Author: MARCELLA TERRY, PT, DPT Service: Physical Therapy Author Type: Physical Therapist Type: Therapy (PT/OT/Speech/Resp) Filed: 05/14/2024 16:13 Note Text: PHYSICAL THERAPY MISSED VISIT SERVICE DATE: 05/14/2024 SERVICE TIME: 1402 ROOM: [place] [address] Patient not seen due to Declined to Participate. Pt waiting for lunch, requesting PT to return later. PT will continue to follow and re-attempt as able. SIGNATURE: Marcella Terry PT, DPT PATIENT NAME: Harjit Solomon DATE: May 14, 2024 TIME: 4:13 PM [facility] THERAPY NT HNO ID: [id number] Author: ROLANDA WEEKS, OTR/L Service: Occupational Therapy Author Type: Occupational Therapist Type: Therapy (PT/OT/Speech/Resp) Filed: 05/14/2024 10:08 Note Text: Occupational Therapy Evaluation Summary SERVICE DATE: 05/14/2024 SERVICE TIME: 0846 to 0956 ROOM: [place] [address] OT 6 Clicks Score: 16 DISCHARGE RECOMMENDATIONS [...] Fall Risk CURRENT HOSPITAL COURSE transferred from [place] ED May 11, 2024 with RF cortical [...] (05/14/24) Administered the Short Blessed Test (Blessed Rfoqpczejst-Fmfbkg-Y oncentration Test) was derived from the longer [...] symptoms and signs-other TREATMENT INTERVENTIONS Evaluation, Self Nursing Home Management (50561), Neuromuscular Reeducation (82720) Timed Code Treatment (minutes): 55 Skilled Treatment [...] Moderate Assistance (more content not included)... [facility] ALLIED HEALTHon 05-13-2024 ALLIED HEALTH HNO ID: [id number] Author: AYESHA PAEZ MRI Tech Service: Radiology [...] PATIENT PRESENTS WITH AN IMPLANTABLE OR ATTACHED SENIOR WEB SERVICES DEVELOPER: No RADIOLOGY DEPARTMENT: MR; Exam(s) Completed: Head: Routine Brain PERIPHERAL IV DATA: Inpatient: see LDA documentation SIGNED BY: LE Whitman May 13, 2024 9:02 AM [facility] Bacteria Bld Culton 05-13-19 25 Bacteria identified Cx Nom (Bld) CULTURE, BLOOD: No growth 5 days [facility] Comment on above: Performed By: #### 6 00-7 ####[facility] [id number] [place] [address] [place] CBC W Auto Differential pane l (Bld)on 05-13-2024 Basophils (Bld) [#/Vol] 0.05 10*3/uL Normal <0.11 [facility] Comment on above: Order Comment: Speci men Type: BLOOD SPECIMENOrdering Facility: [facility] Address: [address] [place] [address] Performed By: #### 5 7021-8 ####[facility] [id number] [place] [address] [place] Basophils/100 WBC (Bld) 0.7 % Normal [facility] Comment on above: Order Comment: Speci men Type: BLOOD SPECIMENOrdering Facility: [facility] Address: [address] [place] [address] Performed By: #### 5 7021-8 ####[facility] [id number] [place] [address] [place] Differential cell count method Nom (Bld) Auto [facility] Comment on above: Order Comment: Speci men Type: BLOOD SPECIMENOrdering Facility: [facility] Address: [address] [place] [address] Performed By: #### 5 7021-8 ####[facility] [id number] [place] [address] [place] Eosinophils (Bld) [#/Vol] 0.32 10*3/uL Normal <0.46 [facility] Comment on above: Order Comment: Speci men Type: BLOOD SPECIMENOrdering Facility: [facility] Address: [address] [place] [address] Performed By: #### 5 7021-8 ####[facility] [id number] [place] [address] [place] Eosinophils/100 WBC (Bld) 4.7 % Normal [facility] Comment on above: Order Comment: Speci men Type: BLOOD SPECIMENOrdering Facility: [facility] Address: [address] [place] [address] Performed By: #### 5 7021-8 ####[facility] [id number] [place] [address] [place] Erythrocyte distribution width (RBC) [Ratio] 14.5 % Normal 11.5-15.0 [facility] Comment on above: Order Comment: Speci men Type: BLOOD SPECIMENOrdering Facility: [facility] Address: [address] [place] [address] Performed By: #### 5 7021-8 ####[facility] [id number] [place] [address] [place] Hematocrit (Bld) [Volume fraction] 33.3 % Low 36.0-46.0 [facility] Comment on above: Order Comment: Speci men Type: BLOOD SPECIMENOrdering Facility: [facility] Address: [address] [place] [address] Performed By: #### 5 7021-8 ####[facility] [id number] [place] [address] [place] Hemoglobin (Bld) [Mass/Vol] 10.4 g/dL Low 11.5-15.5 [facility] Comment on above: Order Comment: Speci men Type: BLOOD SPECIMENOrdering Facility: [facility] Address: [address] [place] [address] Performed By: #### 5 7021-8 ####[facility] [id number] [place] [address] [place] Immature granulocytes (Bld) [#/Vol] 10*3/uL Normal <0.10 [facility] Comment on above: Order Comment: Speci men Type: BLOOD SPECIMENOrdering Facility: [facility] Address: [address] [place] [address] Performed By: #### 5 7021-8 ####[facility] [id number] [place] [address] [place] Immature granulocytes/100 WBC (Bld) 0.3 % Normal [facility] Comment on above: Order Comment: Speci men Type: BLOOD SPECIMENOrdering Facility: [facility] Address: [address] [place] [address] Performed By: #### 5 7021-8 ####[facility] [id number] [place] [address] [place] Lymphocytes (Bld) [#/Vol] 1.57 10*3/uL Normal 1.00-4.00 [facility] Comment on above: Order Comment: Speci men Type: BLOOD SPECIMENOrdering Facility: [facility] Address: [address] [place] [address] Performed By: #### 5 7021-8 ####[facility] [id number] [place] [address] [place] Lymphocytes/100 WBC (Bld) 23.3 % Normal [facility] Comment on above: Order Comment: Speci men Type: BLOOD SPECIMENOrdering Facility: [facility] Address: [address] [place] [address] Performed By: #### 5 7021-8 ####[facility] [id number] [place] [address] [place] MCH (RBC) [Entitic mass] 28.7 pg Normal 26.0-34.0 [facility] Comment on above: Order Comment: Speci men Type: BLOOD SPECIMENOrdering Facility: [facility] Address: [address] [place] [address] Performed By: #### 5 7021-8 ####[facility] [id number] [place] [address] [place] MCHC (RBC) [Mass/Vol] 31.2 g/dL Normal 30.5-36.0 [facility] Comment on above: Order Comment: Speci men Type: BLOOD SPECIMENOrdering Facility: [facility] Address: [address] [place] [address] Performed By: #### 5 7021-8 ####[facility] LABCLIA [id number] [place] [address] [place] MCV (RBC) [Entitic vol] 92.0 fL Normal 80.0-100.0 C [facility] Comment on above: Order Comment: Speci men Type: BLOOD SPECIMENOrdering Facility: [facility] Address: [address] [place] [address] Performed By: #### 5 7021-8 ####[facility] LABCLIA [id number] [place] [address] [place] Monocytes (Bld) [#/Vol] 0.74 10*3/uL Normal <0.87 [facility] Comment on above: Order Comment: Speci men Type: BLOOD SPECIMENOrdering Facility: [facility] Address: [address] [place] [address] Performed By: #### 5 7021-8 ####[facility] LABCLIA [id number] [place] [address] [place] Monocytes/100 WBC (Bld) 11.0 % Normal C [facility] Comment on above: Order Comment: Speci men Type: BLOOD SPECIMENOrdering Facility: [facility] Address: [address] [place] [address] Performed By: #### 5 7021-8 ####[facility] LABCLIA [id number] [place] [address] [place] Neutrophils (Bld) [#/Vol] 4.04 10*3/uL Normal 1.45-7.50 [facility] Comment on above: Order Comment: Speci men Type: BLOOD SPECIMENOrdering Facility: [facility] Address: [address] [place] [address] Performed By: #### 5 7021-8 ####[facility] LABCLIA [id number] [place] [address] [place] Neutrophils/100 WBC (Bld) 60.0 % Normal [facility] Comment on above: Order Comment: Speci men Type: BLOOD SPECIMENOrdering Facility: [facility] Address: [address] [place] [address] Performed By: #### 5 7021-8 ####[facility] LABCLIA [id number] [place] [address] [place] Nucleated RBC (Bld) [#/Vol] 10*3/uL Normal <0.01 [facility] Comment on above: Order Comment: Speci men Type: BLOOD SPECIMENOrdering Facility: [facility] Address: [address] [place] [address] Performed By: #### 5 7021-8 ####[facility]CLIA [id number] [place] [address] [place] Nucleated RBC/100 WBC (Bld) [Ratio] 0.0 /100 WBC Normal [facility] Comment on above: Order Comment: Speci men Type: BLOOD SPECIMENOrdering Facility: [facility] Address: [address] [place] [address] Performed By: #### 5 7021-8 ####[facility] LABIA [id number] [place] [address] [place] Platelet mean volume (Bld) [Entitic vol] 9.4 fL Normal 9.0-12.7 [facility] Comment on above: Order Comment: Speci men Type: BLOOD SPECIMENOrdering Facility: [facility] Address: [address] [place] [address] Performed By: #### 5 7021-8 ####[facility]CLIA [id number] [place] [address] [place] Platelets (Bld) [#/Vol] 334 10*3/uL Normal 150-400 [facility] Comment on above: Order Comment: Speci men Type: BLOOD SPECIMENOrdering Facility: [facility] Address: [address] [place] [address] Performed By: #### 5 7021-8 ####[facility] LABCLIA [id number] [place] [address] [place] RBC (Bld) [#/Vol] 3.62 10*6/uL Low 3.90-5.20 [facility] Comment on above: Order Comment: Speci men Type: BLOOD SPECIMENOrdering Facility: [facility] Address: [address] [place] [address] Performed By: #### 5 7021-8 ####[facility]CLIA [id number] [place] [address] [place] WBC (Bld) [#/Vol] 6.74 10*3/uL Normal 3.70-11.00 [facility] Comment on above: Order Comment: Speci men Type: BLOOD SPECIMENOrdering Facility: [facility] Address: [address] [place] [address] Performed By: #### 5 7021-8 ####[facility] LABCLIA [id number] [place] [address] [place] CONSULT PROGon 05-13-2024 CONSULT PROG HNO ID: [id number] Author: ESTER MIR MD Service: Neurology Stroke Author Type: Resident Type: Consult Progress Note Filed: 05/13/2024 17:48 Note Text: Attestation signed by Latanya Veras MD at 05/13/2024 8:28 PM [facility] STAFF PHYSICIAN NOTE OF PERSONAL INVOLVEMENT IN [...] day. This note was partially generated using [email or web address] voice recognition system, and there may be [...] No d (more content not included)... Normal [facility] Comprehensive metabolic 2000 panelon 05-13-2024 Albumin [Mass/Vol] 3.5 g/dL Low 3.9-4.9 [facility] Comment on above: Order Comment: Speci men Type: BLOOD SPECIMENOrdering Facility: [facility] Address: [address] [place] [address] Performed By: #### 2 276-4, 2777-1, 15294-4, 82820-7, 38305-2 ####[facility] [id number] [place] [address] [place] ALP [Catalytic activity/Vol] 61 U/L Normal 34-123 [facility] Comment on above: Order Comment: Speci men Type: BLOOD SPECIMENOrdering Facility: [facility] Address: [address] [place] [address] Performed By: #### 2 276-4, 2777-1, 26038-2, 11473-4, 81827-3 ####[facility] [id number] [place] [address] [place] ALT [Catalytic activity/Vol] 11 U/L Normal 7-38 [facility] Comment on above: Order Comment: Speci men Type: BLOOD SPECIMENOrdering Facility: [facility] Address: [address] [place] [address] Performed By: #### 2 276-4, 2777-1, 21961-3, 49685-5, 60231-4 ####[facility] LABCLIA [id number] [place] [address] [place] Anion gap [Moles/Vol] 11 mmol/L Normal 8-15 [facility] Comment on above: Order Comment: Speci men Type: BLOOD SPECIMENOrdering Facility: [facility] Address: [address] [place] [address] Performed By: #### 2 276-4, 2777-1, 97737-3, 08723-0, 94042-4 ####[facility] LABIA [id number] [place] [address] [place] AST [Catalytic activity/Vol] 17 U/L Normal 13-35 [facility] Comment on above: Order Comment: Speci men Type: BLOOD SPECIMENOrdering Facility: [facility] Address: [address] [place] [address] Performed By: #### 2 276-4, 2777-1, 23640-4, 04483-0, 16599-4 ####[facility] LABIA [id number] [place] [address] [place] Bilirubin [Mass/Vol] 0.5 mg/dL Normal 0.2-1.3 [facility] Comment on above: Order Comment: Speci men Type: BLOOD SPECIMENOrdering Facility: [facility] Address: [address] [place], [place] [address] Performed By: #### 2 276-4, 2777-1, 13463-1, 05769-8, 12799-3 ####[facility] LABIA [id number] [place] [address] [place] Calcium [Mass/Vol] 8.6 mg/dL Normal 8.5-10.2 [facility] Comment on above: Order Comment: Speci men Type: BLOOD SPECIMENOrdering Facility: [facility] Address: [address] [place], [place] [address] Result Comment: Resu lt rechecked. Performed By: #### 2 276-4, 2777-1, 52543-9, 60275-5, 16014-7 ####[facility] LABCLIA [id number] [address] [address] [place] Chloride [Moles/Vol] 103 mmol/L Normal 98-107 [facility] Comment on above: Order Comment: Speci men Type: BLOOD SPECIMENOrdering Facility: [facility] Address: [address] [place] [address] Performed By: #### 2 276-4, 2777-1, 72199-3, 08096-5, 64446-1 ####[facility] LABCLIA [id number] [place] [address] [place] CO2 [Moles/Vol] 26 mmol/L Normal 22-30 [facility] Comment on above: Order Comment: Speci men Type: BLOOD SPECIMENOrdering Facility: [facility] Address: [address] [place] [address] Performed By: #### 2 276-4, 2777-1, 62379-2, 22628-1, 19119-8 ####[facility] LABCLIA [id number] [place] [address] [place] Creatinine [Mass/Vol] 0.87 mg/dL Normal 0.58-0.96 [facility] Comment on above: Order Comment: Speci men Type: BLOOD SPECIMENOrdering Facility: [facility] Address: [address] [place], [place] [address] Performed By: #### 2 276-4, 2777-1, 31985-5, 84731-3, 71011-8 ####[facility] LABCLIA [id number] [address] [address] [place] Creatinine and Glomerular filtration rate.predicted panel (S/P/Bld) 64 mL/min/1.73m??? Normal >=60 [facility] Comment on above: Order Comment: Christopher hurd Type: BLOOD SPECIMENOrdering Facility: [facility] Address: [address] [place] [address] Result Comment: Michael mated Glomerular Filtration Rate [...] GFR. Performed By: #### 2 276-4, 2777-1, 77386-2, 75046-6, 55963-1 ####[facility] LABCLIA [id number] [place] [address] [place] Glucose [Mass/Vol] 99 mg/dL Normal 74-99 [facility] Comment on above: Order Comment: Christopher hurd Type: BLOOD SPECIMENOrdering Facility: [facility] Address: [address] [place] [address] Result Comment: The [place] [employer] (ADA) provides guidance for cutoff [...] Standards of Medical Care in Diabetes 2016, [employer]. Diabetes Care. 2016.39(Suppl 1). Performed By: #### 2 276-4, 2777-1, 25981-3, 31689-5, 67484-4 ####[facility] LABCLIA [id number] [address] [address] [place] Potassium [Moles/Vol] 4.4 mmol/L Normal 3.7-5.1 [facility] Comment on above: Order Comment: Speci men Type: BLOOD SPECIMENOrdering Facility: [facility] Address: [address] [place] [address] Performed By: #### 2 276-4, 2777-1, 50191-4, 22622-9, 75532-7 ####[facility] LABCLIA [id number] [place] [address] [place] Protein [Mass/Vol] 6.1 g/dL Low 6.3-8.0 [facility] Comment on above: Order Comment: Speci men Type: BLOOD SPECIMENOrdering Facility: [facility] Address: [address] [place] [address] Performed By: #### 2 276-4, 2777-1, 99162-9, 63117-9, 98049-6 ####[facility] LABCLIA [id number] [place] [address] [place] Sodium [Moles/Vol] 140 mmol/L Normal 136-144 [facility] Comment on above: Order Comment: Speci men Type: BLOOD SPECIMENOrdering Facility: [facility] Address: [address] [place] [address] Performed By: #### 2 276-4, 2777-1, 03720-4, 90553-1, 78624-0 ####[facility] LABCLIA [id number] [place] [address] [place] Urea nitrogen [Mass/Vol] 25 mg/dL High 7-21 [facility] Comment on above: Order Comment: Speci men Type: BLOOD SPECIMENOrdering Facility: [facility] Address: [address] [place] [address] Performed By: #### 2 276-4, 2777-1, 22369-9, 23671-3, 39939-1 ####[facility] LABCLIA [id number] [place] [address] [place] [facility] ECHOon 05-13-2024 Echocardiography Echocardiography Report: Transthoracic Echo [place] Date of service: 05/13/2024 11:56:30 AM [employer] Ordering physician: DUGLAS KIM Indication: Subarachnoid hemorrhage [...] * * * Final * * * [employer] : [id number] UID Normal [facility] Ferritin SerPl-mCncon 2024 Ferritin [Mass/Vol] 137.0 ng/mL Normal 14.7-205.1 [facility] Comment on above: Order Comment: Speci men Type: BLOOD SPECIMENOrdering Facility: [facility] Address: [address] [place] [address] Performed By: #### 2 276-4, 2777-1, 93591-8, 69946-9, 38168-6 ####[facility] LABCLIA [id number] [address] [address] [place] Iron and Iron binding capaci ty panelon 05-13-2024 Iron [Mass/Vol] 57 ug/dL Normal 41-186 [facility] Comment on above: Order Comment: Speci men Type: BLOOD SPECIMENOrdering Facility: [facility] Address: [address] [place] [address] Performed By: #### 2 276-4, 2777-1, 13511-2, 46301-6, 24007-4 ####[facility] LABCLIA [id number] [place] [address] [place] Iron binding capacity [Mass/Vol] 244 ug/dL Normal 232-386 [facility] Comment on above: Order Comment: Speci men Type: BLOOD SPECIMENOrdering Facility: [facility] Address: [address] [place] [address] Performed By: #### 2 276-4, 2777-1, 92806-2, 50596-4, 98054-3 ####[facility] LABCLIA [id number] [place] [address] [place] Iron/TIBC [Molar ratio] 23.4 % Normal 15.0-57.0 C [facility] Comment on above: Order Comment: Speci men Type: BLOOD SPECIMENOrdering Facility: [facility] Address: [address] [place] [address] Performed By: #### 2 276-4, 2777-1, 81237-1, 80960-0, 55969-5 ####[facility] LABCLIA [id number] [place] [address] [place] MRI BRAIN WO/W [...] - Subarachnoid hemorrhage (SAH), follow up - [id number] - - - Subarachnoid hemorrhage (SAH), follow [...] matter findings reflecting sequela of microvascular ischemia. Criminal Justice Social Worker: PSCB Transcribe Date/Time: May 13 2024 9:28A Dictated by : SVETLANA SOLOMON MD This examination was interpreted and the report reviewed and electronically signed by: SVETLANA SOLOMON MD on May 13 2024 9:42AM EST [id number] CN Normal [facility] Magnesium SerPl-mCncon 05-13 Magnesium [Mass/Vol] 2.8 mg/dL High 1.7-2.3 [facility] Comment on above: Order Comment: Speci men Type: BLOOD SPECIMENOrdering Facility: [facility] Address: [address] [place] [address] Result Comment: Resu lt rechecked. Performed By: #### 2 276-4, 2777-1, 75251-4, 73854-1, 96002-4 ####[facility] LABCLIA [id number] [facility] [address] OF [facility] NURSING PROGon 05-13-2024 NURSING PROG HNO ID: [id number] Author: COLE SHERWOOD RN Service: Radiology Author [...] May 13, 2024 TIME: 10:08 AM Normal [facility] NUTRITIONon 05-13-2024 NUTRITION HNO ID: [id number] Author: SAWYER MEDLEY RD Service: Nutrition Therapy [...] Weight Type: Admit weight Estimated kilocalorie needs: 6542-5290 Calorie Calculation Method: 20-25 kcals/kg Estimated protein [...] May 13, 2024 TIME: 2:37 PM Normal [facility] PT panel Coag (PPP)on 2024 INR Coag (PPP) [Relative time] 1.0 {INR} Normal 0.9-1.3 [facility] Comment on above: Order Comment: Speci men Type: BLOOD SPECIMENOrdering Facility: [facility] Address: [address] [place] [address] Result Comment: Nathalie min K Antagonist (VKA) Therapeutic Range: INR 2 to 3 (Target INR of 2.5) Note: For patients treated with VKA drugs, such as warfarin, the [employer] 2012 Guideline recommends [...] Chest 2012, 141:7S-47S Cam RA, et al. [facility] 2017, 70: 252-289 Performed By: #### 3 4528-0, 74158-3 ####[facility] LABCLIA [id number] [address] STATES OF [facility] PT Coag (PPP) [Time] 11.3 s Normal 9.7-13.0 [facility] Comment on above: Order Comment: Speci men Type: BLOOD SPECIMENOrdering Facility: [facility] Address: [address] [place] [address] Performed By: #### 3 4528-0, 98907-8 ####[facility] LABCLIA [id number] [address] Phosphate SerPl-mCncon 05-13 Phosphate [Mass/Vol] 4.3 mg/dL Normal 2.7-4.8 [facility] Comment on above: Order Comment: Speci men Type: BLOOD SPECIMENOrdering Facility: [facility] Address: [address] [place] [address] Performed By: #### 2 276-4, 2777-1, 22217-0, 83841-4, 00129-1 ####[facility] LABIA [id number] [address] THERAPY NTon 05-13-2024 THERAPY NT HNO ID: [id number] Author: LIANA BLANCO OT/Preet Service: Occupational Therapy Author Type: Occupational Therapist Type: Therapy (PT/OT/Speech/Resp) Filed: 05/13/2024 15:04 Note Text: OCCUPATIONAL THERAPY MISSED VISIT SERVICE DATE: 05/13/2024 SERVICE TIME: 1048 ROOM: [place] [address] Patient not seen due to Patient Not Available. 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 [...] Fall Risk CURRENT HOSPITAL COURSE transferred from [place] ED May 11, 2024 with RF cortical [...] DIAGNOSIS Reduced mobility-other TREATMENT INTERVENTIONS Therapeutic Activity (08782), Gait Training (24382) Timed Code Treatment (minutes): 38 Skilled Treatment [...] both sides with cues. 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 Criminal Justice Social Worker: [facility] Transcribe Date/Time: May 13 2024 2:23P Dictated by : QUINTIN MORA MD This examination was interpreted and the report reviewed and electronically signed by: QUINTIN MORA MD on May 13 2024 2:41PM EST [id number] CN Normal [facility] XR SHOULDER 2V AP/TRUE AP LT on [...] calcifications are noted. IMPRESSION: Posttraumatic degenerative changes. Criminal Justice Social Worker: [facility] Transcribe Date/Time: May 13 2024 7:41P Dictated by : PRIYANKA CHAMORRO MD This examination was interpreted and the report reviewed and electronically signed by: PRIYANKA CHAMORRO MD on May 13 2024 7:43PM EST [id number] CN Normal [facility] aPTT PPPon 05-13-2024 aPTT Coag (PPP) [Time] 28.5 s Normal 23.0-32.4 [facility] Comment on above: Order Comment: Speci men Type: BLOOD SPECIMENOrdering Facility: [facility] Address: [address] [place] [address] Performed By: #### 3 4528-0, 27741-2 ####[facility] LABIA [id number] [place] [address] [place] Bacteria Bld Culton 05-12-19 25 Bacteria identified Cx Nom (Bld) CULTURE, BLOOD: No growth 5 days Normal [facility] Comment on above: Performed By: #### 6 00-7 ####[facility] LABCLIA [id number] [place] [address] [place] CBC W Auto Differential pane l (Bld)on 05-12-2024 Basophils (Bld) [#/Vol] 0.06 10*3/uL Normal <0.11 [facility] Comment on above: Order Comment: Speci men Type: BLOOD SPECIMENOrdering Facility: [facility] Address: [address] [place] [address] Performed By: #### 5 7021-8 ####[facility] LABIA [id number] [address] [place] Basophils/100 WBC (Bld) 0.7 % Normal [facility] Comment on above: Order Comment: Speci men Type: BLOOD SPECIMENOrdering Facility: [facility] Address: [address] [place] [address] Performed By: #### 5 7021-8 ####[facility] LABCLIA [id number] [place] [address] [place] Differential cell count method Nom (Bld) Auto Normal [facility] Comment on above: Order Comment: Speci men Type: BLOOD SPECIMENOrdering Facility: [facility] Address: [address] [place] [address] Performed By: #### 5 7021-8 ####[facility] LABCLIA [id number] [place] [address] [place] Eosinophils (Bld) [#/Vol] 0.03 10*3/uL Normal <0.46 [facility] Comment on above: Order Comment: Speci men Type: BLOOD SPECIMENOrdering Facility: [facility] Address: [address] [place] [address] Performed By: #### 5 7021-8 ####[facility] LABCLIA [id number] [place] [address] [place] Eosinophils/100 WBC (Bld) 0.4 % Normal [facility] Comment on above: Order Comment: Speci men Type: BLOOD SPECIMENOrdering Facility: [facility] Address: [address] [place] [address] Performed By: #### 5 7021-8 ####[facility] LABIA [id number] [place] [address] [place] Erythrocyte distribution width (RBC) [Ratio] 14.0 % Normal 11.5-15.0 [facility] Comment on above: Order Comment: Speci men Type: BLOOD SPECIMENOrdering Facility: [facility] Address: [address] [place] [address] Performed By: #### 5 7021-8 ####[facility] LABIA [id number] [place] [address] [place] Hematocrit (Bld) [Volume fraction] 35.0 % Low 36.0-46.0 [facility] Comment on above: Order Comment: Speci men Type: BLOOD SPECIMENOrdering Facility: [facility] Address: [address] [place] [address] Performed By: #### 5 7021-8 ####[facility] LABCLIA [id number] [place] [address] [place] Hemoglobin (Bld) [Mass/Vol] 11.4 g/dL Low 11.5-15.5 [facility] Comment on above: Order Comment: Speci men Type: BLOOD SPECIMENOrdering Facility: [facility] Address: [address] [place] [address] Performed By: #### 5 7021-8 ####[facility] LABCLIA [id number] [place] [address] [place] Immature granulocytes (Bld) [#/Vol] 0.04 10*3/uL Normal <0.10 [facility] Comment on above: Order Comment: Speci men Type: BLOOD SPECIMENOrdering Facility: [facility] Address: [address] [place] [address] Performed By: #### 5 7021-8 ####[facility] LABCLIA [id number] [place] [address] [place] Immature granulocytes/100 WBC (Bld) 0.5 % Normal [facility] Comment on above: Order Comment: Speci men Type: BLOOD SPECIMENOrdering Facility: [facility] Address: [address] [place] [address] Performed By: #### 5 7021-8 ####[facility] LABCLIA [id number] [place] [address] [place] Lymphocytes (Bld) [#/Vol] 1.38 10*3/uL Normal 1.00-4.00 [facility] Comment on above: Order Comment: Speci men Type: BLOOD SPECIMENOrdering Facility: [facility] Address: [address] [place] [address] Performed By: #### 5 7021-8 ####[facility] LABCLIA [id number] [place] [address] [place] Lymphocytes/100 WBC (Bld) 17.2 % Normal [facility] Comment on above: Order Comment: Speci men Type: BLOOD SPECIMENOrdering Facility: [facility] Address: [address] [place] [address] Performed By: #### 5 7021-8 ####[facility] [id number] [place] [address] [place] MCH (RBC) [Entitic mass] 28.8 pg Normal 26.0-34.0 [facility] Comment on above: Order Comment: Speci men Type: BLOOD SPECIMENOrdering Facility: [facility] Address: [address] [place] [address] Performed By: #### 5 7021-8 ####[facility] [id number] [place] [address] [place] MCHC (RBC) [Mass/Vol] 32.6 g/dL Normal 30.5-36.0 [facility] Comment on above: Order Comment: Speci men Type: BLOOD SPECIMENOrdering Facility: [facility] Address: [address] [place] [address] Performed By: #### 5 7021-8 ####[facility] [id number] [place] [address] [place] MCV (RBC) [Entitic vol] 88.4 fL Normal 80.0-100.0 C [facility] Comment on above: Order Comment: Speci men Type: BLOOD SPECIMENOrdering Facility: [facility] Address: [address] [place] [address] Performed By: #### 5 7021-8 ####[facility] [id number] [place] [address] [place] Monocytes (Bld) [#/Vol] 0.73 10*3/uL Normal <0.87 [facility] Comment on above: Order Comment: Speci men Type: BLOOD SPECIMENOrdering Facility: [facility] Address: [address] [place] [address] Performed By: #### 5 7021-8 ####[facility] [id number] [place] [address] [place] Monocytes/100 WBC (Bld) 9.1 % Normal [facility] Comment on above: Order Comment: Speci men Type: BLOOD SPECIMENOrdering Facility: [facility] Address: [address] [place] [address] Performed By: #### 5 7021-8 ####[facility] LABCLIA [id number] [place] [address] [place] Neutrophils (Bld) [#/Vol] 5.78 10*3/uL Normal 1.45-7.50 [facility] Comment on above: Order Comment: Speci men Type: BLOOD SPECIMENOrdering Facility: [facility] Address: [address] [place] [address] Performed By: #### 5 7021-8 ####[facility] LABCLIA [id number] [place] [address] [place] Neutrophils/100 WBC (Bld) 72.1 % Normal [facility] Comment on above: Order Comment: Speci men Type: BLOOD SPECIMENOrdering Facility: [facility] Address: [address] [place] [address] Performed By: #### 5 7021-8 ####[facility] LABCLIA [id number] [place] [address] [place] Nucleated RBC (Bld) [#/Vol] 10*3/uL Normal <0.01 [facility] Comment on above: Order Comment: Speci men Type: BLOOD SPECIMENOrdering Facility: [facility] Address: [address] [place] [address] Performed By: #### 5 7021-8 ####[facility] LABCLIA [id number] [place] [address] [place] Nucleated RBC/100 WBC (Bld) [Ratio] 0.0 /100 WBC Normal [facility] Comment on above: Order Comment: Speci men Type: BLOOD SPECIMENOrdering Facility: [facility] Address: [address] [place] [address] Performed By: #### 5 7021-8 ####[facility] LABCLIA [id number] [place] [address] [place] Platelet mean volume (Bld) [Entitic vol] 9.3 fL Normal 9.0-12.7 [facility] Comment on above: Order Comment: Speci men Type: BLOOD SPECIMENOrdering Facility: [facility] Address: [address] [place] [address] Performed By: #### 5 7021-8 ####[facility] LABIA [id number] [place] [address] [place] Platelets (Bld) [#/Vol] 324 10*3/uL Normal 150-400 [facility] Comment on above: Order Comment: Speci men Type: BLOOD SPECIMENOrdering Facility: [facility] Address: [address] [place] [address] Result Comment: No c lot detected. Performed By: #### 5 7021-8 ####[facility] LABIA [id number] [place] [address] [place] RBC (Bld) [#/Vol] 3.96 10*6/uL Normal 3.90-5.20 [facility] Comment on above: Order Comment: Speci men Type: BLOOD SPECIMENOrdering Facility: [facility] Address: [address] [place] [address] Performed By: #### 5 7021-8 ####[facility] LABCLIA [id number] [place] [address] [place] WBC (Bld) [#/Vol] 8.02 10*3/uL Normal 3.70-11.00 [facility] Comment on above: Order Comment: Speci men Type: BLOOD SPECIMENOrdering Facility: [facility] Address: [address] [place] [address] Performed By: #### 5 7021-8 ####[facility] LABCLSYLWIA [id number] [facility] [place] [address] [place] BRAIN WO IVCONon 05-12-19 CT BRAIN WO IVCON * * *Final Report* * * * * * SEE BOTTOM OF REPORT FOR ADDENDED TEXT * * * DATE OF EXAM: May 12 2024 4:54AM [facility] [place] BRAIN WO IVCON / [...] edema that would suggest a parenchymal component. Criminal Justice Social Worker: CLINT Transcribe Date/Time: May 12 2024 5:46A Dictated by : JOSE LÓPEZ MD This examination was interpreted and the report reviewed and electronically signed by: JOSE LÓPEZ MD on May 12 2024 5:26AM EST This document has been addended by: JOSE LÓPEZ MD on May 12 2024 5:48AM EST [id number] CN Normal [facility] PT panel Coag (PPP)on 2024 INR Coag (PPP) [Relative time] 1.1 {INR} Normal 0.9-1.3 [facility] Comment on above: Order Comment: Speci men Type: BLOOD SPECIMENOrdering Facility: [facility] Address: [address] [place] [address] Result Comment: Nathalie min K Antagonist (VKA) Therapeutic Range: INR 2 to 3 (Target INR of 2.5) Note: For patients treated with VKA drugs, such as warfarin, the [employer] 2012 Guideline recommends [...] Chest 2012, 141:7S-47S Cam RA, et al. [facility] 2017, 70: 252-289 Performed By: #### 3 4528-0, 33992-9 ####[facility] LABCLIA [id number] [facility] [place] [address] [place] PT Coag (PPP) [Time] 11.7 s Normal 9.7-13.0 [facility] Comment on above: Order Comment: Speci men Type: BLOOD SPECIMENOrdering Facility: [facility] Address: [address] [place] [address] Performed By: #### 3 4528-0, 41555-4 ####[facility] LABCLIA [id number] [place] [place] [id number] [place] THERAPY NTon 05-12-2024 THERAPY NT HNO ID: [id number] Author: MARCELLA TERRY, PT, DPT Service: Physical Therapy Author Type: Physical Therapist Type: Therapy (PT/OT/Speech/Resp) Filed: 05/12/2024 13:36 Note Text: Physical Therapy Evaluation Summary SERVICE DATE: 05/12/2024 SERVICE TIME: 1244 to 1324 ROOM: [place] [address] PT 6 Clicks Score: 19 DISCHARGE RECOMMENDATIONS [...] Fall Risk CURRENT HOSPITAL COURSE transferred from [place] ED May 11, 2024 with RF cortical [...] Reduced mobility-other TREATMENT INTERVENTIONS Evaluation, Therapeutic Activity (53917) Timed Code Treatment (minutes): 25 Skilled Treatment [...] May 12, 2024 TIME: 1:36 PM Normal [facility] aPTT PPPon 05-12-2024 aPTT Coag (PPP) [Time] 21.2 s Low 23.0-32.4 Cl [facility] Comment on above: Order Comment: Speci men Type: BLOOD SPECIMENOrdering Facility: [facility] Address: [address] [place] [address] Performed By: #### 3 4528-0, 96822-8 ####[facility] LABCLIA [id number] [facility] [place] [address] [place] 12 Lead EKGon 05-11-2024 12 Lead EKG Normal [facility] Absolute neutrophil countOrd ered By: Tylor Hendrickson on 05-11-2024 Absolute neutrophil count 5.5 X10^3/uL 2.0-7.7 [facility] Basic Metabolic Profile (BMP )on 05-11-2024 BUN/CRE 31.2 RATIO High 10-20 [facility] Comment on above: Order Comment: 'TROP ' Serial specimen #1, #2 or #3: 1 Performed By: #### L 100.0100, L500.2500, L501.4020, L300.3900 ####[facility] [address] [place], [address] CA,Total 9.4 mg/dL Normal 8.5-10.1 [facility] Comment on above: Order Comment: 'TROP ' Serial specimen #1, #2 or #3: 1 Performed By: #### L 100.0100, L500.2500, L501.4020, L300.3900 ####[facility] [address] [place], [address] Chloride [Moles/Vol] 100 mmol/L Normal 98-107 [facility] Comment on above: Order Comment: 'TROP ' Serial specimen #1, #2 or #3: 1 Performed By: #### L 100.0100, L500.2500, L501.4020, L300.3900 ####[facility] [address] [place], [address] CO2 [Moles/Vol] 29.0 mmol/L Normal 21.0-32.0 [facility] Comment on above: Order Comment: 'TROP ' Serial specimen #1, #2 or #3: 1 Performed By: #### L 100.0100, L500.2500, L501.4020, L300.3900 ####[facility] [address] [place], [address] Creatinine [Mass/Vol] 0.96 mg/dL Normal 0.55-1.02 [facility] Comment on above: Order Comment: 'TROP ' Serial specimen #1, #2 or #3: 1 Result Comment: The validity of the calculated GFR GFRAA in patients over70 years has not been determined. Clinical correlation isessential. Performed By: #### L 100.0100, L500.2500, L501.4020, L300.3900 ####[facility] [address] [place], [address] ECRCL 37.64 ml/min Normal [facility] Comment on above: Order Comment: 'TROP ' Serial specimen #1, #2 or #3: 1 Performed By: #### L 100.0100, L500.2500, L501.4020, L300.3900 ####[facility] [address] [place], [address] EST GFR - AA 70 mL/min Normal >60 [facility] Comment on above: Order Comment: 'TROP ' Serial specimen #1, #2 or #3: 1 Result Comment: Afri can [place] GFR Calc Performed By: #### L 100.0100, L500.2500, L501.4020, L300.3900 ####[facility] [address] [place], [address] GAP 7 Normal 5-15 [facility] Comment on above: Order Comment: 'TROP ' Serial specimen #1, #2 or #3: 1 Performed By: #### L 100.0100, L500.2500, L501.4020, L300.3900 ####[facility] [address] [place], [address] GFR/1.73 sq M.predicted among non-blacks MDRD (S/P/Bld) [Vol rate/Area] 58 mL/min/{1.73_m2} Low >60 [facility] Comment on above: Order Comment: 'TROP ' Serial specimen #1, #2 or #3: 1 Result Comment: Non- GFR Calc Performed By: #### L 100.0100, L500.2500, L501.4020, L300.3900 ####[facility] [address] [place], [address] Glucose [Mass/Vol] 124 mg/dL High 74-[address] [facility] Comment on above: Order Comment: 'TROP ' Serial specimen #1, #2 or #3: 1 Result Comment: Fast ing Glucose result from 100 to 125 mg/dLsuggests IMPAIRED HOMEOSTASIS per A.D.A. criteria. Performed By: #### L 100.0100, L500.2500, L501.4020, L300.3900 ####[facility] [address] [place], [address] Potassium [Moles/Vol] 4.2 mmol/L Normal 3.5-5.1 [facility] Comment on above: Order Comment: 'TROP ' Serial specimen #1, #2 or #3: 1 Performed By: #### L 100.0100, L500.2500, L501.4020, L300.3900 ####[facility] [address] [place], [address] Sodium [Moles/Vol] 136 mmol/L Normal 136-[address] [facility] Comment on above: Order Comment: 'TROP ' Serial specimen #1, #2 or #3: 1 Performed By: #### L 100.0100, L500.2500, L501.4020, L300.3900 ####[facility] [address] [place], [address] Urea nitrogen [Mass/Vol] 30 mg/dL High 7-18 [facility] Comment on above: Order Comment: 'TROP ' Serial specimen #1, #2 or #3: 1 Performed By: #### L 100.0100, L500.2500, L501.4020, L300.3900 ####[facility] [address] [place], [address] Basophil percentageOrdered B y: Tylor Hendrickson on 05-11-2024 Basophil percentage 0.9 % 0-[address] [facility] Bedside Glucoseon 05-11-2024 FINGERSTICK GLU 113 mg/dL High 74-106 [facility] Comment on above: Result Comment: ANGELICA DWYER OF PATIENT CARE PER NURSING PROTOCOL Performed By: #### L 501.080 ####[facility] [address] [place], [address] Blood urea nitrogen (BUN)/cr eatinine ratioOrdered By: Tylor Hendrickson on 05-11-2024 Blood urea nitrogen (BUN)/creatinine ratio 31.2 RATIO High 10-20 [facility] Brain/Head without Contrasto n 05-11-2024 Brain/Head without Contrast Normal [facility] CBC W Auto Differential pane l (Bld)on 05-11-2024 Basophils (Bld) [#/Vol] 0.07 10*3/uL Normal <0.11 [facility] Comment on above: Order Comment: Speci men Type: BLOOD SPECIMENOrdering Facility: [facility] Address: [address] [place] [address] Performed By: #### 5 7021-8 ####[facility] LABCLIA [id number] [facility] [place], [place] [address] [place] Basophils/100 WBC (Bld) 0.8 % Normal C [facility] Comment on above: Order Comment: Speci men Type: BLOOD SPECIMENOrdering Facility: [facility] Address: [address] [place] [address] Performed By: #### 5 7021-8 ####[facility] LABCLIA [id number] [place] [address] [place] Differential cell count method Nom (Bld) Auto Normal [facility] Comment on above: Order Comment: Speci men Type: BLOOD SPECIMENOrdering Facility: [facility] Address: [address] [place] [address] Performed By: #### 5 7021-8 ####[facility] LABCLIA [id number] [place] [address] [place] Eosinophils (Bld) [#/Vol] 0.13 10*3/uL Normal <0.46 [facility] Comment on above: Order Comment: Speci men Type: BLOOD SPECIMENOrdering Facility: [facility] Address: [address] [place] [address] Performed By: #### 5 7021-8 ####[facility] LABCLIA [id number] [place] [address] [place] Eosinophils/100 WBC (Bld) 1.4 % Normal [facility] Comment on above: Order Comment: Speci men Type: BLOOD SPECIMENOrdering Facility: [facility] Address: [address] [place] [address] Performed By: #### 5 7021-8 ####[facility] LABCLIA [id number] [place] [address] [place] Erythrocyte distribution width (RBC) [Ratio] 14.0 % Normal 11.5-15.0 [facility] Comment on above: Order Comment: Speci men Type: BLOOD SPECIMENOrdering Facility: [facility] Address: [address] [place] [address] Performed By: #### 5 7021-8 ####[facility] LABCLIA [id number] [place] [address] [place] Hematocrit (Bld) [Volume fraction] 37.9 % Normal 36.0-46.0 [facility] Comment on above: Order Comment: Speci men Type: BLOOD SPECIMENOrdering Facility: [facility] Address: [address] [place] [address] Performed By: #### 5 7021-8 ####[facility] LABCLIA [id number] [place] [address] [place] Hemoglobin (Bld) [Mass/Vol] 12.3 g/dL Normal 11.5-15.5 [facility] Comment on above: Order Comment: Speci men Type: BLOOD SPECIMENOrdering Facility: [facility] Address: [address] [place] [address] Performed By: #### 5 7021-8 ####[facility] LABCLIA [id number] [place] [address] [place] Immature granulocytes (Bld) [#/Vol] 0.09 10*3/uL Normal <0.10 [facility] Comment on above: Order Comment: Speci men Type: BLOOD SPECIMENOrdering Facility: [facility] Address: [address] [place] [address] Performed By: #### 5 7021-8 ####[facility] LABCLIA [id number] [place] [address] [place] Immature granulocytes/100 WBC (Bld) 1.0 % Normal [facility] Comment on above: Order Comment: Speci men Type: BLOOD SPECIMENOrdering Facility: [facility] Address: [address] [place] [address] Performed By: #### 5 7021-8 ####[facility] LABCLIA [id number] [place] [address] [place] Lymphocytes (Bld) [#/Vol] 1.37 10*3/uL Normal 1.00-4.00 [facility] Comment on above: Order Comment: Speci men Type: BLOOD SPECIMENOrdering Facility: [facility] Address: [address] [address] Performed By: #### 5 7021-8 ####[facility] LABIA [id number] [place] [address] [place] Lymphocytes/100 WBC (Bld) 14.9 % Normal [facility] Comment on above: Order Comment: Speci men Type: BLOOD SPECIMENOrdering Facility: [facility] Address: [address] [place] [address] Performed By: #### 5 7021-8 ####[facility] LABIA [id number] [place] [address] [place] MCH (RBC) [Entitic mass] 28.8 pg Normal 26.0-34.0 [facility] Comment on above: Order Comment: Speci men Type: BLOOD SPECIMENOrdering Facility: [facility] Address: [address] [place] [address] Performed By: #### 5 7021-8 ####[facility] LABIA [id number] [place] [address] [place] MCHC (RBC) [Mass/Vol] 32.5 g/dL Normal 30.5-36.0 [facility] Comment on above: Order Comment: Speci men Type: BLOOD SPECIMENOrdering Facility: [facility] Address: [address] [place] [address] Performed By: #### 5 7021-8 ####[facility] LABIA [id number] [place] [address] [place] MCV (RBC) [Entitic vol] 88.8 fL Normal 80.0-100.0 C [facility] Comment on above: Order Comment: Speci men Type: BLOOD SPECIMENOrdering Facility: [facility] Address: [address] [place] [address] Performed By: #### 5 7021-8 ####[facility] LABIA [id number] [place] [address] [place] Monocytes (Bld) [#/Vol] 0.95 10*3/uL High <0.87 [facility] Comment on above: Order Comment: Speci men Type: BLOOD SPECIMENOrdering Facility: [facility] Address: [address] [place] [address] Performed By: #### 5 7021-8 ####[facility] LABCLIA [id number] [place] [address] [place] Monocytes/100 WBC (Bld) 10.3 % Normal [facility] Comment on above: Order Comment: Speci men Type: BLOOD SPECIMENOrdering Facility: [facility] Address: [address] [place] [address] Performed By: #### 5 7021-8 ####[facility] LABCLIA [id number] [place] [address] [place] Neutrophils (Bld) [#/Vol] 6.59 10*3/uL Normal 1.45-7.50 [facility] Comment on above: Order Comment: Speci men Type: BLOOD SPECIMENOrdering Facility: [facility] Address: [address] [place] [address] Performed By: #### 5 7021-8 ####[facility] LABCLIA [id number] [place] [address] [place] Neutrophils/100 WBC (Bld) 71.6 % Normal [facility] Comment on above: Order Comment: Speci men Type: BLOOD SPECIMENOrdering Facility: [facility] Address: [address] [place] [address] Performed By: #### 5 7021-8 ####[facility] LABCLIA [id number] [place] [address] [place] Nucleated RBC (Bld) [#/Vol] 10*3/uL Normal <0.01 [facility] Comment on above: Order Comment: Speci men Type: BLOOD SPECIMENOrdering Facility: [facility] Address: [address] [place] [address] Performed By: #### 5 7021-8 ####[facility] LABCLIA [id number] [place] [address] [place] Nucleated RBC/100 WBC (Bld) [Ratio] 0.0 /100 WBC Normal [facility] Comment on above: Order Comment: Speci men Type: BLOOD SPECIMENOrdering Facility: [facility] Address: [address] [place] [address] Performed By: #### 5 7021-8 ####[facility] LABCLIA [id number] [place] [address] [place] Platelet mean volume (Bld) [Entitic vol] 9.3 fL Normal 9.0-12.7 [facility] Comment on above: Order Comment: Speci men Type: BLOOD SPECIMENOrdering Facility: [facility] Address: [address] [place] [address] Performed By: #### 5 7021-8 ####[facility] LABCLIA [id number] [place] [address] [place] Platelets (Bld) [#/Vol] 340 10*3/uL Normal 150-400 [facility] Comment on above: Order Comment: Speci men Type: BLOOD SPECIMENOrdering Facility: [facility] Address: [address] [place] [address] Performed By: #### 5 7021-8 ####[facility] LABCLIA [id number] [place] [address] [place] RBC (Bld) [#/Vol] 4.27 10*6/uL Normal 3.90-5.20 [facility] Comment on above: Order Comment: Speci men Type: BLOOD SPECIMENOrdering Facility: [facility] Address: [address] [place] [address] Performed By: #### 5 7021-8 ####[facility] LABCLIA [id number] [address] [address] [place] WBC (Bld) [#/Vol] 9.20 10*3/uL Normal 3.70-11.00 [facility] Comment on above: Order Comment: Speci men Type: BLOOD SPECIMENOrdering Facility: [facility] Address: [address] [place] [address] Performed By: #### 5 7021-8 ####[facility] LABCLIA [id number] [address] [address] [place] CBC W/Diff, Automatedon 12-3 -2023 Absolute Lymph 1.44 X10 3/uL Normal 0.83-4.51 [facility] Comment on above: Performed By: #### L 100.0100, L500.2500, L501.4020, L300.3900 ####[facility] [address] [place], [address] Absolute Neut 5.5 X10 3/uL Normal 2.0-7.7 [facility] Comment on above: Performed By: #### L 100.0100, L500.2500, L501.4020, L300.3900 ####[facility] [address] [place], [address] Basophils/100 WBC (Bld) 0.9 % Normal 0-[address] [facility] Comment on above: Performed By: #### L 100.0100, L500.2500, L501.4020, L300.3900 ####[facility] [address] [place], [address] Eosinophils/100 WBC (Bld) 1.4 % Normal 0-5 [facility] Comment on above: Performed By: #### L 100.0100, L500.2500, L501.4020, L300.3900 ####[facility] [facility] [address] [place], [address] Erythrocyte distribution width (RBC) [Ratio] 14.2 % Normal 11.6-14.6 [facility] Comment on above: Performed By: #### L 100.0100, L500.2500, L501.4020, L300.3900 ####[facility] [address] [place], [address] Hematocrit (Bld) [Volume fraction] 38.6 % Normal 37-47 [facility] Comment on above: Performed By: #### L 100.0100, L500.2500, L501.4020, L300.3900 ####[facility] [address] [place], [address] Hemoglobin (Bld) [Mass/Vol] 12.2 g/dL Normal 12.0-15.0 [facility] Comment on above: Performed By: #### L 100.0100, L500.2500, L501.4020, L300.3900 ####[facility] [address] [place], [address] IG% 0.600 Normal 0.0-0.9 [facility] Comment on above: Result Comment: IG% - Immature Granulocytes (promyelocytes, myelocytes andmetamyelocytes) > 1% indicates that a LEFT SHIFT is Present. Performed By: #### L 100.0100, L500.2500, L501.4020, L300.3900 ####[facility] [address] [place], [address] Lymphocytes/100 WBC (Bld) 18.4 % Low 19-41 [facility] Comment on above: Performed By: #### L 100.0100, L500.2500, L501.4020, L300.3900 ####[facility] [address] [place], [address] MCH (RBC) [Entitic mass] 28.6 pg Normal 27.0-32.0 [facility] Comment on above: Performed By: #### L 100.0100, L500.2500, L501.4020, L300.3900 ####[facility] [address] [place], [address] MCHC (RBC) [Mass/Vol] 31.6 g/dL Low 32-36 [facility] Comment on above: Performed By: #### L 100.0100, L500.2500, L501.4020, L300.3900 ####[facility] [address] [place], [address] MCV (RBC) [Entitic vol] 90.4 fL Normal 81-99 [facility] Comment on above: Performed By: #### L 100.0100, L500.2500, L501.4020, L300.3900 ####[facility] [address] [place], [address] Monocytes/100 WBC (Bld) 8.3 % Normal 0-10 [facility] Comment on above: Performed By: #### L 100.0100, L500.2500, L501.4020, L300.3900 ####[facility] [address] [place], [address] Neutrophils/100 WBC (Bld) 70.4 % High 47-70 [facility] Comment on above: Performed By: #### L 100.0100, L500.2500, L501.4020, L300.3900 ####[facility] [address] [place], [address] Nucleated RBC (Bld) [#/Vol] 0 10*3/uL Normal 0-5 [facility] Comment on above: Performed By: #### L 100.0100, L500.2500, L501.4020, L300.3900 ####[facility] [address] [place], [address] Platelet mean volume (Bld) [Entitic vol] 9.4 fL Normal 6.2-12.0 [facility] Comment on above: Performed By: #### L 100.0100, L500.2500, L501.4020, L300.3900 ####[facility] [address] [place], [address] Platelets (Bld) [#/Vol] 365 10*3/uL Normal 150-450 [facility] Comment on above: Performed By: #### L 100.0100, L500.2500, L501.4020, L300.3900 ####[facility] [address] [place], [address] RBC (Bld) [#/Vol] 4.27 10*6/uL Normal 4.2-5.[address] [facility] Comment on above: Performed By: #### L 100.0100, L500.2500, L501.4020, L300.3900 ####[facility] [address] [place], [address] RDW SD 47.3 fl High 35.1-43.9 [facility] Comment on above: Performed By: #### L 100.0100, L500.2500, L501.4020, L300.3900 ####[facility] [address] [place], [address] WBC (Bld) [#/Vol] 7.8 10*3/uL Normal 4.4-11.[address] [facility] Comment on above: Performed By: #### L 100.0100, L500.2500, L501.4020, L300.3900 ####[facility] [address] [place], [address] CK SerPl-cCncon 05-11-2024 CK [Catalytic activity/Vol] 90 U/L Normal 42-196 [facility] Comment on above: Order Comment: Speci men Type: BLOOD SPECIMENOrdering Facility: [facility] Address: [address] [place] [address] Performed By: #### 2 777-1, 38649-0, 2157-6, [facility] [place], [address]-6 ####[facility] LABCLIA [id number] [facility] [id number] [facility] CNCRITCRon 05-11-2024 CNCRITCR Critical Care Transport (CCT) Harjit SOLOMON ([id number]) 1935 F Date Time Provider Department 05/11/24 NORMA MOON During your visit today, we recorded the following information about you: Norma Moon APRN.CNP 05/11/2024 8:04 PM Signed CRITICAL CARE TRANSPORT MEDICAL CONTROL CONSULT NOTE Patient Name: Harjit Solomon Service Date: May 11, 2024 Referring Facility: [facility] Accepting Facility: [facility] REASON FOR TRANSPORT: higher level neurosurgical care REASON FOR CONSULT: BP management CCT MEDICAL CONTROL CONSULT SUMMARY: History, physical exam findings, and available background patient information from CCT Transport Nurse were reviewed at the time of consult. Pertinent additional information was reviewed as follows: CCT transport request log In brief, Harjit Solomon is a 89 year old female with a history, known at time of consult, significant for afib on coumadin who presented to [facility] for evaluation of left arm weakness. [...] confirmed and read back via telephone with CCT Transport science faculty member, David Campos RN SIGNATURE: Norma Moon APRN.CNP Acute Care Nurse Practitioner Critical Care Transport Allergies As of Date: 05/11/2024 Noted Allergy Reaction SUTURES 11/26/2012 9 - Itching ACTONEL (RISEDRONATE SODIUM) 11/06/2007 8 - GI Upset Comments: States had GI bleed ADHES. [id number] UM 12/09/2007 BEETS 05/28/2011 2 - Rash [...] Hives Date Reviewed: 05/11/2024 Reviewed by: Joyce Cisse, RN - Fully Assessed Reason for Visit: Critical Care Transport [1718] Prescriptions as of 05/16/2024 - atenolol (TENORMIN) [...] 02/19/2012 Insomnia, unspecified [G47.00] 02/11/2007 02/19/2012 NIGHTMARE [[id number]] 02/11/2007 04/12/2014 LUMBAR RADICULITIS [[id number]] 02/11/2007 BACKACHE NOS [M54.9] 02/17/2007 MITRAL INSUFFICIENCY [...] Hypertensive emergency [I16.1] 05/11/2024 Current use of [facility] antico[facility] [Z79.0*05/11/2024 Restless leg syndrome [G25.81] 05/11/2024 Prescriptions ordered this encounter Dis (more content not included)... Normal [facility] CTA HEAD WO/W IVCONon 2023 CTA HEAD WO/W IVCON * * *Final Report* * * DATE OF EXAM: May 11 2024 8:45PM [facility] [place] - CTA HEAD WO/W IVCON / [...] between software and imaging review: Not Applicable. Criminal Justice Social Worker: PSCB Transcribe Date/Time: May 11 2024 8:50P Dictated by : LAMONTE MCDONALD MD This examination was interpreted and the report reviewed and electronically signed by: LAMONTE MCDONALD MD on May 11 2024 9:02PM EST [id number] CN Normal [facility] CTA NECK W IVCONon 4 CTA NECK W IVCON * * *Final Report* * * DATE OF EXAM: May 11 2024 8:45PM [facility] [place] - CTA NECK W IVCON / [...] between software and imaging review: Not Applicable. Criminal Justice Social Worker: PSCB Transcribe Date/Time: May 11 2024 8:50P Dictated by : LAMONTE MCDONALD MD This examination was interpreted and the report reviewed and electronically signed by: LAMONTE MCDONALD MD on May 11 2024 9:02PM EST [id number] CN Normal [facility] Calcium [Mass/Vol]Ordered By : Tylor Hendrickson on 05-11-2024 Serum or plasma calcium measurement (mass/volume) 9.4 mg/dL 8.5-10.1 [facility] Calcium.ionized [Moles/Vol]o n 05-11-2024 Calcium.ionized (Bld) [Mass/Vol] 1.17 mmol/L Normal 1.08-1.30 [facility] Comment on above: Order Comment: Christopher hurd Type: BLOOD SPECIMENOrdering Facility: [facility] Address: [address] [address] Performed By: #### 1 995-0 ####[facility] LABCLIA [id number] [place] [address] [place] Calcium.ionized adjusted to pH 7.4 (Bld) [Moles/Vol] 1.19 mmol/L Normal 1.08-1.30 [facility] Comment on above: Order Comment: Christopher hurd Type: BLOOD SPECIMENOrdering Facility: [facility] Address: [address] [address] Performed By: #### 1 995-0 ####[facility] LABCLIA [id number] [place] [address] [place] Carbon dioxide measurementOr dered By: Tylor Hendrickson on 05-11-2024 Carbon dioxide measurement 29.0 mmol/L 21.0-32.0 [facility] Chloride measurementOrdered By: Tylor Hendrickson on 05-11-2024 Chloride measurement 100 mmol/L 98-107 [facility] Clarity (U)Ordered By: Tylor Hendrickson on 05-11-2024 Urine clarity Clear Clear [facility] Color (U)Ordered By: Tylor suárez on 05-11-2024 Urine color determination Straw Yellow [facility] Comprehensive metabolic 2000 panelon 05-11-2024 Albumin [Mass/Vol] 2.8 g/dL Low 3.9-4.9 [facility] Comment on above: Order Comment: Speci men Type: BLOOD SPECIMENOrdering Facility: [facility] Address: [address] [place] [address] Result Comment: Resu lt rechecked. Performed By: #### 2 777-1, 56839-7, 2156-10, TSHRF, HSTNT, ####[facility] LABCLIA [id number] [place] [address] [place] ALP [Catalytic activity/Vol] 51 U/L Normal 34-123 [facility] Comment on above: Order Comment: Speci men Type: BLOOD SPECIMENOrdering Facility: [facility] Address: [address] [place] [address] Performed By: #### 2 777-1, 93194-2, 2156-10, TSHRF, HSTNT, ####[facility] LABCLIA [id number] [place] [address] [place] ALT [Catalytic activity/Vol] 7 U/L Normal 7-38 [facility] Comment on above: Order Comment: Speci men Type: BLOOD SPECIMENOrdering Facility: [facility] Address: [address] [place] [address] Performed By: #### 2 777-1, 97671-5, 2156-10, TSHRF, HSTNT, ####[facility] LABCLIA [id number] [address] [address] [place] Anion gap [Moles/Vol] 12 mmol/L Normal 8-15 [facility] Comment on above: Order Comment: Speci men Type: BLOOD SPECIMENOrdering Facility: [facility] Address: [address] [place] [address] Performed By: #### 2 777-1, 14175-1, 6, TSHRF, HSTNT, ####[facility] LABCLIA [id number] [address] [address] [place] AST [Catalytic activity/Vol] 15 U/L Normal 13-35 [facility] Comment on above: Order Comment: Speci men Type: BLOOD SPECIMENOrdering Facility: [facility] Address: [address] [place] [address] Performed By: #### 2 777-1, 16081-6, 6, TSHRF, HSTNT, ####[facility] LABIA [id number] [address] [address] [place] Bilirubin [Mass/Vol] 0.4 mg/dL Normal 0.2-1.3 [facility] Comment on above: Order Comment: Speci men Type: BLOOD SPECIMENOrdering Facility: [facility] Address: [address] [place] [address] Performed By: #### 2 777-1, 53687-0, 2156-10, TSHRF, HSTNT, ####[facility] LABIA [id number] [address] [address] [place] Calcium [Mass/Vol] 7.0 mg/dL Low 8.5-10.2 [facility] Comment on above: Order Comment: Speci men Type: BLOOD SPECIMENOrdering Facility: [facility] Address: [address] [place] [address] Result Comment: Resu lt rechecked. Performed By: #### 2 777-1, 59026-6, 6, TSHRF, HSTNT, ####[facility] LABCLIA [id number] [place] [address] [place] Chloride [Moles/Vol] 107 mmol/L Normal 98-107 [facility] Comment on above: Order Comment: Speci men Type: BLOOD SPECIMENOrdering Facility: [facility] Address: [address] [place] [address] Performed By: #### 2 777-1, 70560-7, 2156-10, TSHRF, HSTNT, ####[facility] LABIA [id number] [place] [address] [place] CO2 [Moles/Vol] 20 mmol/L Low 22-30 [facility] Comment on above: Order Comment: Speci men Type: BLOOD SPECIMENOrdering Facility: [facility] Address: [address] [place] [address] Performed By: #### 2 777-1, 28866-6, 2156-10, TSHRF, HSTNT, ####[facility] LABCLIA [id number] [place] [address] [place] Creatinine [Mass/Vol] 0.62 mg/dL Normal 0.58-0.96 [facility] Comment on above: Order Comment: Speci men Type: BLOOD SPECIMENOrdering Facility: [facility] Address: [address] [place] [address] Performed By: #### 2 777-1, 46302-0, 2156-10, TSHRF, HSTNT, ####[facility] LABCLIA [id number] [place] [address] [place] Creatinine and Glomerular filtration rate.predicted panel (S/P/Bld) 86 mL/min/1.73m??? Normal >=60 [facility] Comment on above: Order Comment: Christopher hurd Type: BLOOD SPECIMENOrdering Facility: [facility] Address: [address] [place] [address] Result Comment: Michael mated Glomerular Filtration Rate [...] actual GFR. Performed By: #### 2 777-1, 17351-6, 2156-10, TSHRF, HSTNT, ####[facility] LABCLIA [id number] [address] [address] [place] Glucose [Mass/Vol] 109 mg/dL High 74-99 [facility] Comment on above: Order Comment: Christopher hurd Type: BLOOD SPECIMENOrdering Facility: [facility] Address: [address] [place] [address] Result Comment: The [employer] (ADA) provides guidance for cutoff [...] Standards of Medical Care in Diabetes 2016, [employer]. Diabetes Care. 2016.39(Suppl 1). Performed By: #### 2 777-1, 28936-4, 2156-10, TSHRF, HSTNT, ####[facility] LABCLIA [id number] [address] [address] [place] Potassium [Moles/Vol] 3.3 mmol/L Low 3.7-5.1 [facility] Comment on above: Order Comment: Speci men Type: BLOOD SPECIMENOrdering Facility: [facility] Address: [address] [place] [address] Performed By: #### 2 777-1, 86907-5, 6, TSHRF, HSTNT, ####[facility] LABCLIA [id number] [address] [address] [place] Protein [Mass/Vol] 5.2 g/dL Low 6.3-8.0 [facility] Comment on above: Order Comment: Speci men Type: BLOOD SPECIMENOrdering Facility: [facility] Address: [address] [place] [address] Result Comment: Resu lt rechecked. Performed By: #### 2 777-1, 97208-7, 2156-10, TSHRF, HSTNT, ####[facility] LABCLIA [id number] [place] [address] [place] Sodium [Moles/Vol] 139 mmol/L Normal 136-144 [facility] Comment on above: Order Comment: Speci men Type: BLOOD SPECIMENOrdering Facility: [facility] Address: [address] [place] [address] Performed By: #### 2 777-1, 35174-0, 2156-10, TSHRF, HSTNT, ####[facility] LABCLIA [id number] [place] [address] [place] Urea nitrogen [Mass/Vol] 22 mg/dL High 7-21 [facility] Comment on above: Order Comment: Speci men Type: BLOOD SPECIMENOrdering Facility: [facility] Address: [address] [place] [address] Performed By: #### 2 777-1, 68344-8, 2156-10, TSHRF, HSTNT, ####[facility] LABCLIA [id number] [place] [id number] [place] Albumin [Mass/Vol] 4.1 g/dL Normal 3.9-4.9 [facility] Comment on above: Order Comment: Speci men Type: BLOOD SPECIMENOrdering Facility: [facility] Address: [address] [place] [address] Performed By: #### 2 4323-8, 277-1, ####[facility] LABCLIA [id number] [place] [id number] [place] ALP [Catalytic activity/Vol] 75 U/L Normal 34-123 [facility] Comment on above: Order Comment: Speci men Type: BLOOD SPECIMENOrdering Facility: [facility] Address: [address] [place] [address] Performed By: #### 2 4323-8, 27711-09, ####[facility] LABCLIA [id number] [place] [address] [place] ALT [Catalytic activity/Vol] 9 U/L Normal 7-38 [facility] Comment on above: Order Comment: Speci men Type: BLOOD SPECIMENOrdering Facility: [facility] Address: [address] [place] [address] Performed By: #### 2 4323-8, 27711-09, ####[facility] LABCLIA [id number] [place] [address] [place] Anion gap [Moles/Vol] 12 mmol/L Normal 8-15 [facility] Comment on above: Order Comment: Speci men Type: BLOOD SPECIMENOrdering Facility: [facility] Address: [address] [place] [address] Performed By: #### 2 4323-8, 277-1, ####[facility] LABCLIA [id number] [place] [id number] [place] AST [Catalytic activity/Vol] 19 U/L Normal 13-35 [facility] Comment on above: Order Comment: Speci men Type: BLOOD SPECIMENOrdering Facility: [facility] Address: [address] [place] [address] Performed By: #### 2 4323-8, 2776-05, ####[facility] LABCLIA [id number] [place] [address] [place] Bilirubin [Mass/Vol] 0.5 mg/dL Normal 0.2-1.3 [facility] Comment on above: Order Comment: Speci men Type: BLOOD SPECIMENOrdering Facility: [facility] Address: [address] [place] [address] Performed By: #### 2 4323-8, 2776-05, ####[facility] LABCLIA [id number] [place] [address] [place] Calcium [Mass/Vol] 9.5 mg/dL Normal 8.5-10.2 [facility] Comment on above: Order Comment: Speci men Type: BLOOD SPECIMENOrdering Facility: [facility] Address: [address] [place] [address] Performed By: #### 2 4323-8, 2776-05, ####[facility] LABCLIA [id number] [place] [id number] [place] Chloride [Moles/Vol] 100 mmol/L Normal 98-107 [facility] Comment on above: Order Comment: Speci men Type: BLOOD SPECIMENOrdering Facility: [facility] Address: [address] [place] [address] Performed By: #### 2 4323-8, 2776-05, ####[facility] LABCLIA [id number] [address] [address] [place] CO2 [Moles/Vol] 30 mmol/L Normal 22-30 [facility] Comment on above: Order Comment: Speci men Type: BLOOD SPECIMENOrdering Facility: [facility] Address: [address] [place] [address] Performed By: #### 2 4323-8, 27711-09, ####[facility] LABCLIA [id number] [facility] [address] [address] [place] Creatinine [Mass/Vol] 0.76 mg/dL Normal 0.58-0.96 [facility] Comment on above: Order Comment: Speci men Type: BLOOD SPECIMENOrdering Facility: [facility] Address: [address] [place] [address] Performed By: #### 2 4323-8, 2776-05, ####[facility] LABIA [id number] [place] [address] [place] Creatinine and Glomerular filtration rate.predicted panel (S/P/Bld) 75 mL/min/1.73m??? Normal >=60 [facility] Comment on above: Order Comment: Speci men Type: BLOOD SPECIMENOrdering Facility: [facility] Address: [address] [address] Result Comment: Michael mated Glomerular Filtration Rate [...] actual GFR. Performed By: #### 2 4323-8, 2776-05, ####[facility] LABIA [id number] [place] [id number] [place] Glucose [Mass/Vol] 147 mg/dL High 74-99 [facility] Comment on above: Order Comment: Speci men Type: BLOOD SPECIMENOrdering Facility: [facility] Address: [address] [place] [address] Result Comment: The [employer] (ADA) provides guidance for cutoff [...] Standards of Medical Care in Diabetes 2016, [employer]. Diabetes Care. 2016.39(Suppl 1). Performed By: #### 2 4323-8, 2776-05, ####[facility] LABCLIA [id number] [place] [address] [place] Potassium [Moles/Vol] 3.8 mmol/L Normal 3.7-5.1 [facility] Comment on above: Order Comment: Speci men Type: BLOOD SPECIMENOrdering Facility: [facility] Address: [address] [place] [address] Performed By: #### 2 4323-8, 2776-05, ####[facility] LABIA [id number] [place] [address] [place] Protein [Mass/Vol] 7.2 g/dL Normal 6.3-8.0 [facility] Comment on above: Order Comment: Speci men Type: BLOOD SPECIMENOrdering Facility: [facility] Address: [address] [place] [address] Performed By: #### 2 4323-8, 2776-05, ####[facility] LABCLIA [id number] [place] [id number] [place] Sodium [Moles/Vol] 142 mmol/L Normal 136-144 [facility] Comment on above: Order Comment: Speci men Type: BLOOD SPECIMENOrdering Facility: [facility] Address: [address] [place] [id number] Performed By: #### 2 4323-8, 2777-1, 40082-4 ####[facility] LABCLIA [id number] [place] [id number] [place] Urea nitrogen [Mass/Vol] 25 mg/dL High 7-21 [facility] Comment on above: Order Comment: Speci men Type: BLOOD SPECIMENOrdering Facility: [facility] Address: [address] [place] [id number] Performed By: #### 2 4323-8, 2777-1, 54351-3 ####[facility] LABCLIA [id number] [place] [id number] [place] Creatinine [Mass/Vol]Ordered By: Tylor Hendrickson on 05-11-2024 Serum or plasma creatinine measurement (mass/volume) 0.96 mg/dL 0.55-1.02 [facility] Emergency Department Summary on 05-11-2024 Emergency Department Summary Normal [facility] Eosinophil percentageOrdered By: Tylor Hendrickson on 05-11-2024 Eosinophil percentage 1.4 % 0-5 [facility] Erythrocyte distribution wid th (RBC) [Ratio]Ordered By: Tylor Hendrickson on 05-11-2024 Erythrocyte distribution width ratio 14.2 % 11.6-14.6 [facility] Erythrocyte distribution wid th standard deviationOrdered By: Tylor Hendrickson on 05-11-2024 Erythrocyte distribution width standard deviation 47.3 fl High 35.1-43.9 [facility] Estimated glomerular filtrat ion rate (GFR) AmericanOrdered By: Tylor Hendrickson on 05-11-2024 Estimated glomerular filtration rate (GFR) 70 mL/min >60 [facility] Estimation of creatinine mary ellen aranceOrdered By: yTlor Hendrickson on 05-11-2024 Estimation of creatinine clearance 37.64 ml/min [facility] Glomerular filtration rate ( GFR) estimationOrdered By: Tylor Hendrickson on 05-11-2024 Glomerular filtration rate (GFR) estimation 58 mL/min Low >60 [facility] Glucose measurementOrdered B y: Tylor Hendrickson on 05-11-2024 Glucose measurement 124 mg/dL High 74-106 [facility] Gl[facility] measurement at bedsi deOrdered By: Tylor Hendrickson on 05-11-2024 Glucose measurement at bedside 113 mg/dL High 74-106 [facility] HIGH SENSITIVITY TROPONIN To n 05-11-2024 Troponin T.cardiac High sensitivity method [Mass/Vol] 19 ng/L High <12 [facility] Comment on above: Order Comment: Speci men Type: BLOOD SPECIMENOrdering Facility: [facility] Address: [address] [place] [address] Performed By: #### 2 777-1, 24364-2, 2157-6, TSHRF, HSTNT, 26088-8 ####[facility] LABCLIA [id number] [facility] [place] [address] [place] HISTORY PHYSICALon HISTORY PHYSICAL HNO ID: [id number] Author: DUGLAS KIM MD Service: Neurosurgery Author [...] warfarin, NEL, osteoporosis, secondary hypothyroidism transferred from [place] ED May 11, 2024 with RF cortical SAH/ICH (1cc). Patient LKW 05/11 AM when she developed LUE finger tingling [...] involving digestive system(787.99) PAF (paroxysmal atrial fibrillation) ([facility]) 10/20/2013 Thyroid disorder PAST SURGICAL HISTORY: PAST [...] PRN phosph (more content not included)... Normal [facility] HISTORY PHYSICAL HNO ID: [id number] Author: CARI WONG MD, PhD Service: Neurology [...] on CPAP, osteoporosis, secondary hypothyroidism transferred from [place] ED May 11, 2024 for ICH monitoring. [...] between L3-L4) Pre-admission Pre-morbid mRS: Premorbid Modified Hatillo Score: 0 - No symptoms at all PAST MEDICAL HISTORY Diagnosis Date Abdominal pain, unspecified site Abdominal pain, unspecified site Depression Dyslipidemia Flatulence, eructation, and gas pain Fracture L shoulder (2007), Sacral stress fracture; R wrist Hypertension Mitral valve prolapse Obstructive sleep apnea Osteoporosis, unspecified 01/30/2005 Other symptoms involving digestive system(787.99) PAF (paroxysmal atrial fibrillation) ([facility]) 10/20/2013 Thyroid disorder PAST SURGICAL HISTORY Procedure [...] GI Upset States had GI bleed Adhes. Tcxs-Ldhg-Hx* Beets Rash raised injection site when allergy [...] , Unknown (more content not included)... Normal [facility] HISTORY PHYSICAL HNO ID: [id number] Author: CLINT BERMUDEZ APRN.CORPORATE CONSULTANT Service: Neurology ICU Author Type: Nurse Practitioner [...] warfarin, NEL, osteoporosis, secondary hypothyroidism transferred from [place] ED May 11, 2024 with focus of [...] involving digestive system(787.99) PAF (paroxysmal atrial fibrillation) ([facility]) 10/20/2013 Thyroid disorder PAST SURGICAL HISTORY Procedure [...] GI Upset States had GI bleed Adhes. Dwah-Soup-Ii* Beets Rash raised injection site when allergy [...] Edema- Yes Peripheral pulses- Present all extremities [facility] DATA: [...] leg syndrome (more content not included)... Normal [facility] Hematocrit Auto (Bld) [Volum e fraction]Ordered By: Tylor Hendrickson on 05-11-2024 Automated blood hematocrit (percentage) 38.6 % 37-47 [facility] Hemoglobin measurementOrdere d By: Tylor Hendrickson on 05-11-2024 Hemoglobin measurement 12.2 g/dL 12.0-15.0 [facility] Immature granulocytes/100 WB C Auto (Bld)Ordered By: Tylor Hendrickson on 05-11-2024 Automated immature granulocyte percentage 0.600 % 0.0-0.9 [facility] International normalized rat io (INR) calculationOrdered By: Tylor Hendrickson on 05-11-2024 International normalized ratio (INR) calculation 2.1 [facility] L501.4020on 05-11-2024 TROPONIN-I HS 13 pg/mL Normal 3.0-54.0 [facility] Comment on above: Order Comment: 'TROP ' Serial specimen #1, #2 or #3: 1 Result Comment: Plea se Note: New Test Units and Gender Specific Reference Ranges. For more information see Policy Stat Procedure [facility] High Sensitivity Troponin (TNIH) and attachments. Performed By: #### L 100.0100, L500.2500, L501.4020, L300.3900 ####[facility] [address] [place], [place], [id number] Lymphocytes Auto (Unsp spec) [#/Vol]Ordered By: Tylor Hendrickson on 05-11-2024 Absolute lymphocyte count 1.44 X10^3/uL 0.83-4.51 [facility] Lymphocytes/100 WBC Auto (Un sp spec)Ordered By: Tylor Hendrickson on 05-11-2024 Automated lymphocyte count as percentage of total leukocytes 18.4 % Low 19-41 [facility] MCV (RBC) [Entitic vol]Order ed By: Tylor Hendrickson on 05-11-2024 MCV (mean corpuscular volume) determination 90.4 fL 81-99 [facility] Magnesium SerPl-mCncon 05-11 Magnesium [Mass/Vol] 1.7 mg/dL Normal 1.7-2.3 [facility] Comment on above: Order Comment: Speci men Type: BLOOD SPECIMENOrdering Facility: [facility] Address: [address] [address] Performed By: #### 2 777-1, 68512-1, 2157-6, TSHRF, HSTNT, 43991-7 ####[facility] LABCLIA [id number] [place] [address] [place] Magnesium [Mass/Vol] 2.3 mg/dL Normal 1.7-2.3 [facility] Comment on above: Order Comment: Speci men Type: BLOOD SPECIMENOrdering Facility: [facility] Address: [address] [place] [address] Performed By: #### 2 4323-8, 2777-1, 93921-2 ####[facility] LABCLIA [id number] [place] [address] [place] Mean corpuscular hemoglobin (MCH) determinationOrdered By: Tylor Hendrickson on 05-11-2024 Mean corpuscular hemoglobin (MCH) determination 28.6 pg 27.0-32.0 [facility] Mean corpuscular hemoglobin concentration (MCHC) determinationOrdered By: Tylor Hendrickson on 05-11-2024 Mean corpuscular hemoglobin concentration (MCHC) determination 31.6 g/dL Low 32-36 [facility] Mean platelet volume determi nationOrdered By: Tylor Hendrickson on 05-11-2024 Mean platelet volume determination 9.4 fl 6.2-12.0 [facility] Monocyte percentageOrdered B y: Tylor Hendrickson on 05-11-2024 Monocyte percentage 8.3 % 0-[address] [facility] Neutrophil percentageOrdered By: Tylor Hendrickson on 05-11-2024 Neutrophil percentage 70.4 % High 47-70 [facility] Nucleated red blood cell per centageOrdered By: Tylor Hendrickson on 05-11-2024 Nucleated red blood cell percentage 0 % 0-5 [facility] PT panel Coag (PPP)on 2023 INR Coag (PPP) [Relative time] 2.0 {INR} High 0.9-1.3 [facility] Comment on above: Order Comment: Speci men Type: BLOOD SPECIMENOrdering Facility: [facility] Address: [address] [place] [address] Result Comment: Nathalie min K Antagonist (VKA) Therapeutic Range: INR 2 to 3 (Target INR of 2.5) Note: For patients treated with VKA drugs, such as warfarin, the [employer] 2012 Guideline recommends [...] Chest 2012, 141:7S-47S Cam RA, et al. [facility] 2017, 70: 252-289 Performed By: #### 1 4979-9, 49322-4 ####[facility] LABIA [id number] [place] [address] [place] PT Coag (PPP) [Time] 21.1 s High 9.7-13.0 [facility] Comment on above: Order Comment: Speci men Type: BLOOD SPECIMENOrdering Facility: [facility] Address: [address] [place] [address] Performed By: #### 1 4979-9, 77593-9 ####[facility] [id number] [place] [address] [place] Partial Thromboplast Timeon 05-11-2024 aPTT Coag (Bld) [Time] 39.7 s High 24.1-36.2 [facility] Comment on above: Order Comment: ERNESTO Vivas PREVIOUS SPECIMEN REJECTED DUE TOQNS. 05/11/24 1312 Performed By: #### L 300.0432, L366.8339 ####[facility] [address] [place], [place], [id number] Phosphate SerPl-mCncon 05-11 Phosphate [Mass/Vol] 2.4 mg/dL Low 2.7-4.8 [facility] Comment on above: Order Comment: Speci men Type: BLOOD SPECIMENOrdering Facility: [facility] Address: [facility] [address] [place] [id number] Performed By: #### 2 777-1, 43772-8, 2157-6, TSHRF, HSTNT, ####[facility] LABCLIA [id number] [place] [id number] [place] Phosphate [Mass/Vol] 3.2 mg/dL Normal 2.7-4.8 [facility] Comment on above: Order Comment: Speci men Type: BLOOD SPECIMENOrdering Facility: [facility] Address: [facility] [place] [address] Performed By: #### 2 4323-8, 2777-1, ####[facility] LABCLIA [id number] [place] [address] [place] Platelet countOrdered By: Cari Hendrickson on 05-11-2024 Platelet count 365 K/mm3 150-450 [facility] Potassium measurementOrdered By: Tylor Hendrickson on 05-11-2024 Potassium measurement 4.2 mmol/L 3.5-5.1 [facility] Prothrombin Time w/INRon INR Coag (PPP) [Relative time] 2.1 {INR} Normal [facility] Comment on above: Order Comment: REDRA W. PREVIOUS SPECIMEN REJECTED DUE TOQNS. 05/11/24 131 Performed By: #### L 300.4310, L300.3900 ####[facility] [address] [place], [address] PT Coag (PPP) [Time] 23.7 s High 11.7-14.9 [facility] Comment on above: Order Comment: REDRA W. PREVIOUS SPECIMEN REJECTED DUE TOQNS. 05/11/242 Performed By: #### L 300.4310, L300.3900 ####[facility] [address] [place], [address] INR Normal [facility] Comment on above: Result Comment: This specimen has been REJECTED due to Laboratory criteria:Quanity Not Sufficient.HORR has been notified of need of recollection.05/11/24 1310 Tracie Clapper Performed By: #### L 100.0100, L500.2500, L501.4020, L300.3900 ####[facility] [address] [place], [address] PROTIME Normal 11.7-14.9 [facility] Comment on above: Result Comment: This specimen has been REJECTED due to Laboratory criteria:Quanity Not Sufficient.HORR has been notified of need of recollection.05/11/24 1310 Tracie Clapper Performed By: #### L 100.0100, L500.2500, L501.4020, L300.3900 ####[facility] [address] [place], [address] Prothrombin timeOrdered By: Tylor Hendrickson on 05-11-2024 Prothrombin time 23.7 SECONDS High 11.7-14.[address] [facility] RBC Auto (Bld) [#/Vol]Ordere d By: Tylor Hendrickson on 05-11-2024 Automated blood erythrocyte count 4.27 M/mm3 4.2-5.4 [facility] STAPHYLOCOCCUS AUREUS AND MR SA SCREEN, PCR, NASALon 05-11-2024 S. aureus and MRSA panel RHYS+probe (Nose) Not detected Normal Not Detected [facility] Comment on above: Order Comment: Speci men Type: SWABOrdering Facility: [facility] Address: [address] [place] [address] Performed By: #### S APCR ####[facility] LABCLIA [id number] [facility] [place] [place] [address] [place] Serum anion gap measurementO rdered By: Tylor Hendrickson on 05-11-2024 Serum anion gap measurement 7 5-15 [facility] Sodium levelOrdered By: Tylor Hendrickson on 05-11-2024 Sodium level 136 mmol/L 136-145 [facility] Specific gravity (U) [Rel de nsity]Ordered By: Tylor Hendrickson on 05-11-2024 Urine specific gravity measurement 1.010 1.002-1.030 [facility] TSH W/REFLEX FT4on 4 TSH Qn 1.170 m[IU]/L Normal 0.270-4.200 [facility] Comment on above: Order Comment: Speci men Type: BLOOD SPECIMENOrdering Facility: [facility] Address: [address] [place] [address] Performed By: #### 2 777-1, 61450-6, 2157-6, TSHRF, HSTNT, 22967-6 ####[facility] LABCLIA [id number] [place] [address] [place] TYPE + SCREENon 05-11-2024 ABO A Normal [facility] Comment on above: Order Comment: Speci men Type: BLOOD SPECIMENOrdering Facility: [facility] Address: [address] [place] [address] Performed By: #### T SCR ####[facility] BLOOD BANKCLIA [id number] [place] [address] [place] Rh Nom (Bld) Positive Normal [facility] Comment on above: Order Comment: Speci men Type: BLOOD SPECIMENOrdering Facility: [facility] Address: [address] [place] [address] Performed By: #### T SCR ####[facility] B[facility] BANKCLIA [id number] [place] [address] [place] TYPE AND SCREEN EXPIRATION 05/14/2024 23:59 Normal [facility] Comment on above: Order Comment: Speci men Type: BLOOD SPECIMENOrdering Facility: [facility] Address: [address] [place] [address] Performed By: #### T SCR ####[facility] BLOOD BANKCLIA [id number] [place] [address] [place] Troponin IOrdered By: Tylor perez on 05-11-2024 Troponin I 13 pg/mL 3.0-54.0 [facility] Urea nitrogen [Mass/Vol]Orde red By: Tylor Hendrickson on 05-11-2024 Serum or plasma urea nitrogen measurement (mass/volume) 30 mg/dL High 7-18 [facility] Urinalysis, Completeon 05-11 BACTERIA 0 SEEN Normal None Seen [facility] Comment on above: Order Comment: CLEAN CATCH Performed By: #### L 400.0001 ####[facility] [address] [place], [address] EPI,SQUAMOUS 0 SEEN Normal 5-10 [facility] Comment on above: Order Comment: CLEAN CATCH Performed By: #### L 400.0001 ####[facility] [address] [place], [address] Mucus Ql (Urine sed) 0 SEEN Normal [facility] Comment on above: Order Comment: CLEAN CATCH Performed By: #### L 400.0001 ####[facility] [address] [place], [address] RBC 0 SEEN Normal 0-5 [facility] Comment on above: Order Comment: CLEAN CATCH Performed By: #### L 400.0001 ####[facility] [address] [place], [address] WBC 0 SEEN Normal 0-5 [facility] Comment on above: Order Comment: CLEAN CATCH Performed By: #### L 400.0001 ####[facility] [address] [place], [address] Urine glucose detectionOrder ed By: Tylor Hendrickson on 05-11-2024 Urine glucose detection Normal mg/dl Normal [facility] Urine total bilirubin detect ion by test stripOrdered By: Tylor Hendrickson on 05-11-2024 Urine total bilirubin detection by test strip Negative Negative [facility] White blood cell (WBC) count Ordered By: Tylor Hendrickson on 05-11-2024 White blood cell (WBC) count 7.8 K/mm3 4.4-11.0 [facility] White blood cell countOrdere d By: Tylor Hendrickson on 05-11-2024 White blood cell count 0 SEEN /hpf W [facility] aPTT Coag (PPP) [Time]Ordere d By: Tylor Hendrickson on 05-11-2024 Activated partial thromboplastin time (aPTT) in platelet poor plasma by coagulation a 39.7 Seconds High 24.1-36.2 [facility] aPTT PPPon 05-11-2024 aPTT Coag (PPP) [Time] 39.3 s High 23.0-32.4 [facility] Comment on above: Order Comment: Speci men Type: BLOOD SPECIMENOrdering Facility: [facility] Address: [address] [place] [address] Performed By: #### 1 4979-9, 27354-9 ####[facility] LABCLIA [id number] [place] [address] [place] pH (U)Ordered By: Tylor antonio on 05-11-2024 Urine pH 8.0 5.0 - 8.0 [facility] 32-GO-Ncbcgyv DOrdered By: Jing Swenson on 04-14-2024 05-FH-Rjtzmmu D 40.5 ng/mL [facility] Basic Metabolic Profile (BMP )on 04-14-2024 BUN/CRE 32.0 RATIO High 10-20 [facility] Comment on above: Order Comment: Order Date: 04/14/24Order Info: 0667-1 - BMP Performed By: #### L 500.2500 ####[facility] [address] [place], [address] CA,Total 9.1 mg/dL Normal 8.5-10.1 [facility] Comment on above: Order Comment: Order Date: 04/14/24Order Info: 0667-1 - BMP Performed By: #### L 500.2500 ####[facility] [address] [place], [address] Chloride [Moles/Vol] 98 mmol/L Normal 98-107 [facility] Comment on above: Order Comment: Order Date: 04/14/24Order Info: 06 - BMP Performed By: #### L 500.2500 ####[facility] [address] [place], [address] CO2 [Moles/Vol] 29.0 mmol/L Normal 21.0-32.0 [facility] Comment on above: Order Comment: Order Date: 04/14/24Order Info: 666-05 - BMP Performed By: #### L 500.2500 ####[facility] [address] [place], [address] Creatinine [Mass/Vol] 0.88 mg/dL Normal 0.55-1.02 [facility] Comment on above: Order Comment: Order Date: 04/14/24Order Info: 666-05 - BMP Result Comment: The validity of the calculated GFR GFRAA in patients over70 years has not been determined. Clinical correlation isessential. Performed By: #### L 500.2500 ####[facility] [address] [place], [address] EST GFR - AA 79 mL/min Normal >60 [facility] Comment on above: Order Comment: Order Date: 04/14/24Order Info: 06 - BMP Result Comment: Afri can [place] GFR Calc Performed By: #### L 500.2500 ####[facility] [address] [place], [address] GAP 9 Normal 5-15 [facility] Comment on above: Order Comment: Order Date: 04/14/24Order Info: 0667 - BMP Performed By: #### L 500.2500 ####[facility] [address] [place], [address] GFR/1.73 sq M.predicted among non-blacks MDRD (S/P/Bld) [Vol rate/Area] 65 mL/min/{1.73_m2} Normal >60 [facility] Comment on above: Order Comment: Order Date: 04/14/24Order Info: 666-05 - BMP Result Comment: Non- GFR Calc Performed By: #### L 500.2500 ####[facility] [address] [place], [address] Glucose [Mass/Vol] 97 mg/dL Normal 74-[address] [facility] Comment on above: Order Comment: Order Date: 04/14/24Order Info: 666-05 - BMP Performed By: #### L 500.2500 ####[facility] [address] [place], [address] Potassium [Moles/Vol] 3.6 mmol/L Normal 3.5-5.1 [facility] Comment on above: Order Comment: Order Date: 04/14/24Order Info: 666-05 - BMP Performed By: #### L 500.2500 ####[facility] [address] [place], [address] Sodium [Moles/Vol] 137 mmol/L Normal 136-[address] [facility] Comment on above: Order Comment: Order Date: 04/14/24Order Info: 666-05 - BMP Performed By: #### L 500.2500 ####[facility] [address] [place], [address] Urea nitrogen [Mass/Vol] 28 mg/dL High 7-18 [facility] Comment on above: Order Comment: Order Date: 04/14/24Order Info: 666-05 - BMP Performed By: #### L 500.2500 ####[facility] [address] [place], [address] Blood urea nitrogen (BUN)/cr eatinine ratioOrdered By: Bridget Swenson on 04-14-2024 Blood urea nitrogen (BUN)/creatinine ratio 32.0 RATIO High 10-20 [facility] Calcium [Mass/Vol]Ordered By : Bridget Swenson on 04-14-2024 Serum or plasma calcium measurement (mass/volume) 9.1 mg/dL 8.5-10.1 [facility] Carbon dioxide measurementOr dered By: Bridget Swenson on 04-14-2024 Carbon dioxide measurement 29.0 mmol/L 21.0-32.0 [facility] Chloride measurementOrdered By: Bridget Swenson on 04-14-2024 Chloride measurement 98 mmol/L 98-107 [facility] Creatinine [Mass/Vol]Ordered By: Bridget Swenson on 04-14-2024 Serum or plasma creatinine measurement (mass/volume) 0.88 mg/dL 0.55-1.02 [facility] Estimated glomerular filtrat ion rate (GFR) AmericanOrdered By: Bridget Swenson on 04-14-2024 Estimated glomerular filtration rate (GFR) 79 mL/min >60 [facility] Glomerular filtration rate ( GFR) estimationOrdered By: Bridget Swenson on 04-14-2024 Glomerular filtration rate (GFR) estimation 65 mL/min >60 [facility] Glucose measurementOrdered B y: Bridget Swenson on 04-14-2024 Glucose measurement 97 mg/dL 74-[address] [facility] Intact parathyroid hormone ( iPTH) measurementOrdered By: Bridget Swenson on 04-14-2024 Intact parathyroid hormone (iPTH) measurement 106.4 pg/mL High 18.4-80.1 [facility] PTHINon 04-14-2024 PTH 106.4 pg/mL High 18.4-80.1 [facility] Comment on above: Order Comment: Order Date: 04/14/24Order Info: 0565-1 - PTHIN Performed By: #### L 506.1000, L509.1000 ####[facility] [address] [place], [place], [address] Potassium measurementOrdered By: Bridget Swenson on 04-14-2024 Potassium measurement 3.6 mmol/L 3.5-5.1 [facility] Serum anion gap measurementO rdered By: Bridget Swenson on 04-14-2024 Serum anion gap measurement 9 5-15 [facility] Sodium levelOrdered By: Zenaida Swenson on 04-14-2024 Sodium level 137 mmol/L 136-145 [facility] Urea nitrogen [Mass/Vol]Orde red By: Bridget Swenson on 04-14-2024 Serum or plasma urea nitrogen measurement (mass/volume) 28 mg/dL High 7-18 [facility] Vitamin D,25 Hydroxyon 04-14 Vitamin D 25-OH 40.5 ng/mL Normal [facility] Comment on above: Order Comment: Order Date: 04/14/24Order Info: 50434-0 - VITD25 Result Comment: Nathalie min D 25(OH) Status Range Deficiency <20 ng/mL (50nmol/L) Insufficiency 20 - 30 ng/mL (50 - 75 nmol/L) Sufficiency 30 - 100 ng/mL (75 - 250 nmol/L) Toxicity >100 ng/mL (>250 nmol/L) Performed By: #### L 506.1000, L509.1000 ####[facility] [address] [place], [address] Carotid Duplex Ultrasoundon 04-01-2024 Carotid Duplex Ultrasound Normal [facility] Basophil percentageOrdered B y: Bridget Swenson on 08-27-2023 Chloride [Moles/Vol] 96 mmol/L 98-107 [facility] Glucose [Mass/Vol] 96 mg/dL 74-[address] [facility] Potassium [Moles/Vol] 3.9 mmol/L 3.5-5.1 [facility] Sodium [Moles/Vol] 135 mmol/L 136-[address] [facility] Laboratory - Chemistry and C hemistry - challengeOrdered By: Bridget Swenson on 08-27-2023 CO2 [Moles/Vol] 30.0 mmol/L 21.0-32.0 [facility] Natriuretic peptide B (Bld) [Mass/Vol] 43.4 pg/mL 0-100 [facility] Urea nitrogen/Creatinine [Mass ratio] 38.9 mg/mg 10-20 [facility] No Panel InformationOrdered By: Bridget Swenson on 08-27-2023 Estimated GFR (MDRD) Amer 69 mL/min >60 [facility] Comment on above: GFR Calc Estimated GFR (MDRD) Non-Af Amer 57 mL/min >60 [facility] Comment on above: Non- GFR Calc Serum or plasma calcium manuel urement (mass/volume)Ordered By: Bridget Swenson on 08-27-2023 Calcium [Mass/Vol] 9.2 mg/dL 8.5-10.[address] [facility] Serum or plasma creatinine m easurement (mass/volume)Ordered By: Bridget Swenson on 08-27-2023 Creatinine [Mass/Vol] 0.98 mg/dL 0.55-1.02 [facility] Comment on above: The validity of the calculated GFR & GFRAA in patients over 70 years has not been determined. Clinical correlation is essential. Serum or plasma urea nitroge n measurement (mass/volume)Ordered By: Bridget Swenson on 08-27-2023 Urea nitrogen [Mass/Vol] 38 mg/dL 7-18 [facility] Thin prep Papanicolaou smear with manual screeningOrdered By: Bridget Swenson on 08-27-2023 Thin prep Papanicolaou smear with manual screening 9 5-15 [facility] Absolute lymphocyte countOrd ered By: Doyle Swenson on 08-11-2023 Lymphocytes Auto (Unsp spec) [#/Vol] 1.88 10*3/uL 0.83-4.51 [facility] Automated lymphocyte count a s percentage of total leukocytesOrdered By: Doyle Swenson on 08-11-2023 Lymphocytes/100 WBC Auto (Unsp spec) 23.9 % 19-41 [facility] Basophil percentageOrdered B y: Doyle Swenson on 08-11-2023 Basophils/100 WBC (Bld) 0.9 % 0-[address] [facility] Bilirubin [Mass/Vol] 0.40 mg/dL 0.20-1.00 [facility] Comment on above: For patients on eltr ombopag therapy, use of Dimension [place] TBIL is not recommended. Chloride [Moles/Vol] 102 mmol/L 98-107 [facility] Eosinophils/100 WBC (Bld) 2.0 % 0-5 [facility] Glucose [Mass/Vol] 112 mg/dL 74-[address] [facility] Comment on above: Fasting Glucose resu lt from 100 to 125 mg/dL suggests IMPAIRED HOMEOSTASIS per A.D.A. criteria. Hemoglobin (Bld) [Mass/Vol] 11.4 g/dL 12.0-15.0 [facility] Monocytes/100 WBC (Bld) 8.5 % 0-[address] [facility] Neutrophils (Bld) [#/Vol] 5.1 10*3/uL 2.0-7.7 [facility] Neutrophils/100 WBC (Bld) 64.3 % 47-70 [facility] Potassium [Moles/Vol] 4.4 mmol/L 3.5-5.1 [facility] Protein [Mass/Vol] 7.5 g/dL 6.4-8.[address] [facility] Sodium [Moles/Vol] 138 mmol/L 136-[address] [facility] WBC (Bld) [#/Vol] 7.9 10*3/uL 4.4-11.[address] [facility] Determination of erythrocyte mean corpuscular volume (MCV)Ordered By: Doyle Swenson on 08-11-2023 MCV (RBC) [Entitic vol] 91.3 fL 81-[address] [facility] Erythrocyte distribution wid th ratioOrdered By: Doyle Swenson on 08-11-2023 Erythrocyte distribution width (RBC) [Ratio] 14.2 % 11.6-14.6 [facility] Erythrocyte distribution wid th standard deviationOrdered By: Doyle Swenson on 08-11-2023 Erythrocyte distribution width (RBC) [Entitic vol] 47.9 fL 35.1-43.9 [facility] Hematocrit Auto (Bld) [Volum e fraction]Ordered By: Doyle Swenson on 08-11-2023 Hematocrit (Bld) [Volume fraction] 35.8 % 37-47 [facility] Immature granulocytes/100 WB C Auto (Bld)Ordered By: Doyle Swenson on 08-11-2023 Immature granulocytes/100 WBC (Bld) 0.400 % 0.0-0.9 [facility] Comment on above: IG% - Immature Granu locytes (promyelocytes, myelocytes and metamyelocytes) > 1% indicates that a LEFT SHIFT is Present. Iron measurement (mass/mass) Ordered By: Doyle Swenson on 08-11-2023 Iron (Unsp spec) [Mass/Mass] 32 ug/dL 50-170 [facility] Laboratory - Chemistry and C hemistry - challengeOrdered By: Doyle Swenson on 08-11-2023 Albumin/Globulin [Mass ratio] 0.9 {ratio} 0.9-2.4 [facility] ALP [Catalytic activity/Vol] 60 U/L 45-117 [facility] ALT [Catalytic activity/Vol] 18 U/L 13-56 [facility] CO2 [Moles/Vol] 28.0 mmol/L 21.0-32.0 [facility] Ferritin [Mass/Vol] 41 ng/mL 8-[address] [facility] Globulin (S) [Mass/Vol] 4.0 g/dL 2.2-4.[address] [facility] Urea nitrogen/Creatinine [Mass ratio] 36.8 mg/mg 10-20 [facility] Laboratory - Hematology and Cell countsOrdered By: Doyle Swenson on 08-11-2023 MCH (RBC) [Entitic mass] 29.1 pg 27.0-32.0 [facility] MCHC (RBC) [Mass/Vol] 31.8 g/dL 32-36 [facility] Nucleated RBC/100 WBC (Bld) [Ratio] 0 % 0-5 [facility] Platelet mean volume (Bld) [Entitic vol] 9.7 fL 6.2-12.0 [facility] Platelets (Bld) [#/Vol] 385 10*3/uL 150-450 [facility] No Panel InformationOrdered By: Doyle Swenson on 08-11-2023 Estimated GFR (MDRD) Amer 77 mL/min >60 [facility] Comment on above: GFR Calc Estimated GFR (MDRD) Non-Af Amer 63 mL/min >60 [facility] Comment on above: Non- GFR Calc RBC Auto (Bld) [#/Vol]Ordere d By: Doyle Swenson on 08-11-2023 RBC (Bld) [#/Vol] 3.92 10*6/uL 4.2-5.[address] [facility] Serum or plasma calcium manuel urement (mass/volume)Ordered By: Doyle Swenson on 08-11-2023 Calcium [Mass/Vol] 8.8 mg/dL 8.5-10.[address] [facility] Serum or plasma creatinine m easurement (mass/volume)Ordered By: Doyle Swenson on 08-11-2023 Creatinine [Mass/Vol] 0.90 mg/dL 0.55-1.02 [facility] Comment on above: The validity of the calculated GFR & GFRAA in patients over 70 years has not been determined. Clinical correlation is essential. Serum or plasma thyroid stim ulating hormone (TSH) measurement (units/volume)Ordered By: Doyle Swenson on 08-11-2023 TSH Qn 1.34 uIU/mL 0.358-3.74 [facility] Serum or plasma urea nitroge n measurement (mass/volume)Ordered By: Doyle Swenson on 08-11-2023 Urea nitrogen [Mass/Vol] 33 mg/dL 7-18 [facility] Thin prep Papanicolaou smear with manual screeningOrdered By: Doyle Swenson on 08-11-2023 Thin prep Papanicolaou smear with manual screening 3.5 g/dL 3.2-5.0 [facility] Thin prep Papanicolaou smear with manual screening 21 U/L 15-37 [facility] Thin prep Papanicolaou smear with manual screening 8 5-15 [facility] Basophil percentageOrdered B y: Doyle Swenson on 08-06-2023 Chloride [Moles/Vol] 104 mmol/L 98-107 [facility] Glucose [Mass/Vol] 102 mg/dL 74-[address] [facility] Comment on above: Fasting Glucose resu lt from 100 to 125 mg/dL suggests IMPAIRED HOMEOSTASIS per A.D.A. criteria. Potassium [Moles/Vol] 4.5 mmol/L 3.5-5.1 [facility] Comment on above: Slight Hemolysis, Re sult may be falsely increased. Sodium [Moles/Vol] 136 mmol/L 136-[address] [facility] Laboratory - Chemistry and C hemistry - challengeOrdered By: Doyle Swenson on 08-06-2023 CO2 [Moles/Vol] 27.0 mmol/L 21.0-32.0 [facility] Urea nitrogen/Creatinine [Mass ratio] 22.6 mg/mg 10-20 [facility] No Panel InformationOrdered By: Doyle Swenson on 08-06-2023 Estimated GFR (MDRD) Amer 63 mL/min >60 [facility] Comment on above: GFR Calc Estimated GFR (MDRD) Non-Af Amer 52 mL/min >60 [facility] Comment on above: Non- GFR Calc Serum or plasma calcium manuel urement (mass/volume)Ordered By: Doyle Swenson on 08-06-2023 Calcium [Mass/Vol] 8.5 mg/dL 8.5-10.[address] [facility] Serum or plasma creatinine m easurement (mass/volume)Ordered By: Doyle Swenson on 08-06-2023 Creatinine [Mass/Vol] 1.06 mg/dL 0.55-1.02 [facility] Comment on above: The validity of the calculated GFR & GFRAA in patients over 70 years has not been determined. Clinical correlation is essential. Serum or plasma urea nitroge n measurement (mass/volume)Ordered By: Doyle Swenson on 08-06-2023 Urea nitrogen [Mass/Vol] 24 mg/dL 7-18 [facility] Thin prep Papanicolaou smear with manual screeningOrdered By: Doyle Swenson on 08-06-2023 Thin prep Papanicolaou smear with manual screening 5 5-15 [facility] Basophil percentageOrdered B y: Doyle Swenson on 06-09-2023 Bilirubin [Mass/Vol] 0.40 mg/dL 0.20-1.00 [facility] Comment on above: For patients on eltr ombopag therapy, use of [place] TBIL is not recommended. Chloride [Moles/Vol] 99 mmol/L 98-107 [facility] Glucose [Mass/Vol] 96 mg/dL 74-[address] [facility] Hemoglobin (Bld) [Mass/Vol] 11.0 g/dL 12.0-15.0 [facility] Potassium [Moles/Vol] 4.4 mmol/L 3.5-5.1 [facility] Protein [Mass/Vol] 7.5 g/dL 6.4-8.[address] [facility] Sodium [Moles/Vol] 134 mmol/L 136-[address] [facility] WBC (Bld) [#/Vol] 6.8 10*3/uL 4.4-11.[address] [facility] Determination of erythrocyte mean corpuscular volume (MCV)Ordered By: Doyle Swenson on 06-09-2023 MCV (RBC) [Entitic vol] 95.3 fL 81-[address] [facility] Erythrocyte distribution wid th ratioOrdered By: Doyle Swenson on 06-09-2023 Erythrocyte distribution width (RBC) [Ratio] 13.6 % 11.6-14.6 [facility] Erythrocyte distribution wid th standard deviationOrdered By: Doyle Swenson on 06-09-2023 Erythrocyte distribution width (RBC) [Entitic vol] 48.3 fL 35.1-43.9 [facility] Erythrocyte sedimentation ra teOrdered By: Doyle Swenson on 06-09-2023 ESR (Bld) [Velocity] 50 mm/h 0-30 [facility] Hematocrit Auto (Bld) [Volum e fraction]Ordered By: Doyle Swenson on 06-09-2023 Hematocrit (Bld) [Volume fraction] 36.3 % 37-47 [facility] Laboratory - Chemistry and C hemistry - challengeOrdered By: Doyle Swenson on 06-09-2023 Albumin/Globulin [Mass ratio] 0.8 {ratio} 0.9-2.4 [facility] ALP [Catalytic activity/Vol] 63 U/L 45-117 [facility] ALT [Catalytic activity/Vol] 24 U/L 13-56 [facility] CO2 [Moles/Vol] 31.0 mmol/L 21.0-32.0 [facility] Globulin (S) [Mass/Vol] 4.2 g/dL 2.2-4.2 [facility] Natriuretic peptide B (Bld) [Mass/Vol] 90.9 pg/mL 0-100 [facility] Urea nitrogen/Creatinine [Mass ratio] 35.1 mg/mg 10-20 [facility] Laboratory - Hematology and Cell countsOrdered By: Doyle Swenson on 06-09-2023 MCH (RBC) [Entitic mass] 28.9 pg 27.0-32.0 [facility] MCHC (RBC) [Mass/Vol] 30.3 g/dL 32-36 [facility] Platelets (Bld) [#/Vol] 353 10*3/uL 150-450 [facility] No Panel InformationOrdered By: Doyle Swenson on 06-09-2023 C-Reactive Protein Extended Range 21.90 mg/L 0.0-3.0 [facility] Comment on above: C-Reactive Protein ( CRP) provides useful information for thediagnosis, therapy and monitoring of inflammatory processesand associated diseases. For the evaluation of Relative Riskfor Cardiovascular Disease, a High Sensitivity CRP (HSCRP)should be ordered. Estimated GFR (MDRD) Amer 84 mL/min >60 [facility] Comment on above: GFR Calc Estimated GFR (MDRD) Non-Af Amer 69 mL/min >60 [facility] Comment on above: Non- GFR Calc Platelet mean volume Mauricio-Ec ker (Bld) [Entitic vol]Ordered By: Doyle Swenson on 06-09-2023 Platelet mean volume (Bld) [Entitic vol] 10.0 fL 6.2-12.0 [facility] RBC Auto (Bld) [#/Vol]Ordere d By: Doyle Swenson on 06-09-2023 RBC (Bld) [#/Vol] 3.81 10*6/uL 4.2-5.[address] [facility] Serum or plasma calcium manuel urement (mass/volume)Ordered By: Doyle Swenson on 06-09-2023 Calcium [Mass/Vol] 9.5 mg/dL 8.5-10.[address] [facility] Serum or plasma creatinine m easurement (mass/volume)Ordered By: Doyle Swenson on 06-09-2023 Creatinine [Mass/Vol] 0.83 mg/dL 0.55-1.02 [facility] Comment on above: The validity of the calculated GFR & GFRAA in patients over 70 years has not been determined. Clinical correlation is essential. Serum or plasma thyroid stim ulating hormone (TSH) measurement (units/volume)Ordered By: Doyle Swenson on 06-09-2023 TSH Qn 0.76 uIU/mL 0.358-3.74 [facility] Serum or plasma urea nitroge n measurement (mass/volume)Ordered By: Doyle Swenson on 06-09-2023 Urea nitrogen [Mass/Vol] 29 mg/dL 7-18 [facility] Serum or plasma uric acid me asurement (mass/volume)Ordered By: Doyle Swenson on 06-09-2023 Urate [Mass/Vol] 6.4 mg/dL 2.6-6.0 [facility] Comment on above: The drugs N-Acetylcy steine and Metamizole may falsely depress this assay. Thin prep Papanicolaou smear with manual screeningOrdered By: Doyle Swenson on 06-09-2023 Thin prep Papanicolaou smear with manual screening 3.3 g/dL 3.2-5.0 [facility] Thin prep Papanicolaou smear with manual screening 22 U/L 15-37 [facility] Thin prep Papanicolaou smear with manual screening 4 5-15 [facility] Absolute lymphocyte countOrd ered By: Duglas Shields on 05-12-2023 Lymphocytes Auto (Unsp spec) [#/Vol] 0.93 10*3/uL 0.83-4.51 [facility] Basophil percentageOrdered B y: Duglas Shields on 05-12-2023 Basophil percentage 0-5 SEEN /hpf 0-5 [facility] Basophils/100 WBC (Bld) 0.7 % 0-[address] [facility] Chloride [Moles/Vol] 100 mmol/L 98-107 [facility] Eosinophils/100 WBC (Bld) 1.3 % 0-5 [facility] Glucose [Mass/Vol] 108 mg/dL 74-[address] [facility] Comment on above: Fasting Glucose resu lt from 100 to 125 mg/dL suggests IMPAIRED HOMEOSTASIS per A.D.A. criteria. Neutrophils (Bld) [#/Vol] 4.7 10*3/uL 2.0-7.7 [facility] Neutrophils/100 WBC (Bld) 65.0 % 47-70 [facility] Potassium [Moles/Vol] 3.9 mmol/L 3.5-5.1 [facility] Sodium [Moles/Vol] 135 mmol/L 136-[address] [facility] WBC (Bld) [#/Vol] 7.2 10*3/uL 4.4-11.[address] [facility] Bilirubin Test strip Ql (U)O rdered By: Duglas Shields on 05-12-2023 Bilirubin Ql (U) Negative Negative [facility] Blood erythrocytes count (nu mber/volume)Ordered By: Duglas Shields on 05-12-2023 RBC (Bld) [#/Vol] 3.68 10*6/uL 4.2-5.[address] [facility] Blood hemoglobin measurement (mass/volume)Ordered By: Duglas Shields on 05-12-2023 Hemoglobin (Bld) [Mass/Vol] 10.6 g/dL 12.0-15.0 [facility] Blood lymphocytes/100 leukoc ytesOrdered By: Duglas Shields on 05-12-2023 Lymphocytes/100 WBC (Bld) 13.0 % 19-41 [facility] Blood monocytes/100 leukocyt esOrdered By: Duglas Shields on 05-12-2023 Monocytes/100 WBC (Bld) 19.2 % 0-[address] [facility] Blood platelet mean volumeOr dered By: Duglas Shields on 05-12-2023 Platelet mean volume (Bld) [Entitic vol] 9.5 fL 6.2-12.0 [facility] Determination of erythrocyte mean corpuscular volume (MCV)Ordered By: Duglas Shields on 05-12-2023 MCV (RBC) [Entitic vol] 92.4 fL 81-[address] [facility] Hematocrit Auto (Bld) [Volum e fraction]Ordered By: Duglas Shields on 05-12-2023 Hematocrit (Bld) [Volume fraction] 34.0 % 37-47 [facility] INR in Blood by Coagulation assayOrdered By: Duglas Shields on 05-12-2023 INR Coag (Bld) [Relative time] 2.2 {INR} [facility] Influenza virus A and B and SARS-CoV-2 (COVID-19) Ag panel - Upper respiratory specimOrdered By: Duglas Shields on 05-12-2023 SARS-CoV-2 (COVID-19) RNA RHYS+probe Ql (Resp) [facility] Ketones Test strip Ql (U)Ord ered By: Duglas Shields on 05-12-2023 Ketones Ql (U) Negative Negative [facility] Laboratory - Chemistry and C hemistry - challengeOrdered By: Duglas Shields on 05-12-2023 CO2 [Moles/Vol] 30.0 mmol/L 21.0-32.0 [facility] Urea nitrogen/Creatinine [Mass ratio] 18.0 mg/mg 10-20 [facility] Laboratory - CoagulationOrde red By: Duglas Shields on 05-12-2023 PT Coag (PPP) [Time] 24.4 s 11.7-14.9 [facility] Laboratory - Hematology and Cell countsOrdered By: Duglas Shields on 05-12-2023 Erythrocyte distribution width (RBC) [Entitic vol] 46.5 fL 35.1-43.9 [facility] Erythrocyte distribution width (RBC) [Ratio] 13.5 % 11.6-14.6 [facility] Immature granulocytes/100 WBC (Bld) 0.800 % 0.0-0.9 [facility] Comment on above: IG% - Immature Granu locytes (promyelocytes, myelocytes and metamyelocytes) > 1% indicates that a LEFT SHIFT is Present. MCH (RBC) [Entitic mass] 28.8 pg 27.0-32.0 [facility] Nucleated RBC/100 WBC (Bld) [Ratio] 0 % 0-5 [facility] MCHC Auto (RBC) [Mass/Vol]Or dered By: Duglas Shields on 05-12-2023 MCHC (RBC) [Mass/Vol] 31.2 g/dL 32-36 [facility] Mucus LM Ql (Urine sed)Order ed By: Duglas Shields on 05-12-2023 Mucus Ql (Urine sed) 0 SEEN /hpf [facility] Nitrite Test strip Ql (U)Ord ered By: Duglas Shields on 05-12-2023 Nitrite Ql (U) Negative Negative [facility] No Panel InformationOrdered By: Duglas Shields on 05-12-2023 Estimated GFR (MDRD) Amer 90 mL/min >60 [facility] Comment on above: GFR Calc Estimated GFR (MDRD) Non-Af Amer 74 mL/min >60 [facility] Comment on above: Non- GFR Calc Platelets bldOrdered By: Sharda Shields on 05-12-2023 Platelets (Bld) [#/Vol] 362 10*3/uL 150-450 [facility] Protein Test strip Ql (U)Ord ered By: Duglas Shields on 05-12-2023 Protein Ql (U) 30 mg/dl Negative [facility] Serum or plasma calcium manuel urement (mass/volume)Ordered By: Duglas Shields on 05-12-2023 Calcium [Mass/Vol] 9.2 mg/dL 8.5-10.[address] [facility] Serum or plasma creatinine m easurement (mass/volume)Ordered By: Duglas Shields on 05-12-2023 Creatinine [Mass/Vol] 0.78 mg/dL 0.55-1.02 [facility] Comment on above: The validity of the calculated GFR & GFRAA in patients over 70 years has not been determined. Clinical correlation is essential. Serum or plasma urea nitroge n measurement (mass/volume)Ordered By: Duglas Shields on 05-12-2023 Urea nitrogen [Mass/Vol] 14 mg/dL 7-18 [facility] Squamous epithelial cells de tection in urine sediment by light microscopyOrdered By: Duglas Shields on 05-12-2023 Epithelial cells.squamous LM Ql (Urine sed) 0-5 SEEN /hpf 5-10 [facility] Thin prep Papanicolaou smear with manual screeningOrdered By: Duglas Shields on 05-12-2023 Thin prep Papanicolaou smear with manual screening 5 5-15 [facility] Upper respiratory specimen i nfluenza A virus, influenza B virus, and severe acute resOrdered By: Duglas Shields on 05-12-2023 Upper respiratory specimen influenza A virus, influenza B virus, and severe acute res [facility] Upper respiratory specimen i nfluenza A virus, influenza B virus, and severe acute respiratory syndromOrdered By: Duglas Shields on 05-12-2023 Upper respiratory specimen influenza A virus, influenza B virus, and severe acute respiratory syndrom [facility] Urine blood detectionOrdered By: Duglas Shields on 05-12-2023 RBC Ql (U) 10 /ul Negative [facility] RBC Ql (U) 0-5 SEEN /hpf 0-5 [facility] Urine clarityOrdered By: Sharda Shields on 05-12-2023 Clarity (U) Clear Clear [facility] Urine color determinationOrd ered By: Duglas Shields on 05-12-2023 Color (U) Straw Yellow [facility] Urine glucose detectionOrder ed By: Duglas Shields on 05-12-2023 Glucose Ql (U) Normal mg/dl Normal [facility] Urine leukocyte esterase det ection by dipstickOrdered By: Duglas Shields on 05-12-2023 Leukocyte esterase Test strip Ql (U) Negative Negative [facility] Urine pHOrdered By: Duglas abreu on 05-12-2023 pH (U) 8.0 [pH] 5.0 - 8.0 [facility] Urine sediment bacteria coun t by microscopy (number/high power field)Ordered By: Duglas Shields on 05-12-2023 Bacteria LM.HPF (Urine sed) [#/Area] 0 /[HPF] None Seen [facility] Urine specific gravity measu rementOrdered By: Duglas Shields on 05-12-2023 Specific gravity (U) [Rel density] 1.010 1.002-1.030 [facility] Urobilinogen Auto test strip Ql (U)Ordered By: Duglas Shields on 05-12-2023 Urobilinogen Ql (U) Normal mg/dl Normal [facility] Serum or plasma ferritin fran surement (mass/volume)Ordered By: Juan Jose Thomas on 02-25-2023 Ferritin [Mass/Vol] 90 ng/mL 8-[address] [facility] Basophil percentageOrdered B y: Doyle Swenson on 12-18-2022 Chloride [Moles/Vol] 101 mmol/L 98-107 [facility] Glucose [Mass/Vol] 91 mg/dL 74-[address] [facility] Potassium [Moles/Vol] 4.7 mmol/L 3.5-5.1 [facility] Sodium [Moles/Vol] 134 mmol/L 136-[address] [facility] WBC (Bld) [#/Vol] 6.5 10*3/uL 4.4-11.[address] [facility] Blood erythrocytes count (nu mber/volume)Ordered By: Doyle Swenson on 12-18-2022 RBC (Bld) [#/Vol] 3.92 10*6/uL 4.2-5.[address] [facility] Blood hemoglobin measurement (mass/volume)Ordered By: Doyle Swenson on 12-18-2022 Hemoglobin (Bld) [Mass/Vol] 11.8 g/dL 12.0-15.0 [facility] Blood platelet mean volumeOr dered By: Doyle Swenson on 12-18-2022 Platelet mean volume (Bld) [Entitic vol] 10.2 fL 6.2-12.0 [facility] Determination of erythrocyte mean corpuscular volume (MCV)Ordered By: Doyle Swenson on 12-18-2022 MCV (RBC) [Entitic vol] 98.5 fL 81-[address] [facility] Hematocrit Auto (Bld) [Volum e fraction]Ordered By: Doyle Swenson on 12-18-2022 Hematocrit (Bld) [Volume fraction] 38.6 % 37-47 [facility] INR in Blood by Coagulation assayOrdered By: Doyle Swenson on 12-18-2022 INR Coag (Bld) [Relative time] 2.1 {INR} [facility] Iron measurement (mass/mass) Ordered By: Doyle Swenson on 12-18-2022 Iron (Unsp spec) [Mass/Mass] 61 ug/dL 50-170 [facility] Laboratory - Chemistry and C hemistry - challengeOrdered By: Doyle Swenson on 12-18-2022 CO2 [Moles/Vol] 27.0 mmol/L 21.0-32.0 [facility] Natriuretic peptide B (Bld) [Mass/Vol] 44.6 pg/mL 0-100 [facility] Urea nitrogen/Creatinine [Mass ratio] 30.3 mg/mg 10-20 [facility] Laboratory - CoagulationOrde red By: Doyle Swenson on 12-18-2022 PT Coag (PPP) [Time] 23.4 s 11.7-14.9 [facility] Laboratory - Hematology and Cell countsOrdered By: Doyle Swenson on 12-18-2022 Erythrocyte distribution width (RBC) [Entitic vol] 45.0 fL 35.1-43.9 [facility] Erythrocyte distribution width (RBC) [Ratio] 12.5 % 11.6-14.6 [facility] MCH (RBC) [Entitic mass] 30.1 pg 27.0-32.0 [facility] MCHC Auto (RBC) [Mass/Vol]Or dered By: Doyle Swenson on 12-18-2022 MCHC (RBC) [Mass/Vol] 30.6 g/dL 32-36 [facility] No Panel InformationOrdered By: Doyle Swenson on 12-18-2022 Estimated GFR (MDRD) Amer 74 mL/min >60 [facility] Comment on above: GFR Calc Estimated GFR (MDRD) Non-Af Amer 61 mL/min >60 [facility] Comment on above: Non- GFR Calc Thyroid Stimulating Hormone (TSH) 1.37 uIU/mL 0.358-3.74 [facility] Platelets bldOrdered By: Fawn Swenson on 12-18-2022 Platelets (Bld) [#/Vol] 319 10*3/uL 150-450 [facility] Serum or plasma calcium manuel urement (mass/volume)Ordered By: Doyle Swenson on 12-18-2022 Calcium [Mass/Vol] 9.1 mg/dL 8.5-10.[address] [facility] Serum or plasma creatinine m easurement (mass/volume)Ordered By: Doyle Swenson on 12-18-2022 Creatinine [Mass/Vol] 0.92 mg/dL 0.55-1.02 [facility] Comment on above: The validity of the calculated GFR & GFRAA in patients over 70 years has not been determined. Clinical correlation is essential. Serum or plasma ferritin fran surement (mass/volume)Ordered By: Doyle Swenson on 12-18-2022 Ferritin [Mass/Vol] 66 ng/mL 8-[address] [facility] Serum or plasma urea nitroge n measurement (mass/volume)Ordered By: Doyle Swenson on 12-18-2022 Urea nitrogen [Mass/Vol] 28 mg/dL 7-18 [facility] Thin prep Papanicolaou smear with manual screeningOrdered By: Doyle Swenson on 12-18-2022 Thin prep Papanicolaou smear with manual screening 6 5-15 [facility] Basophil percentageOrdered B y: Murtaza Melvin on 11-06-2022 Bilirubin [Mass/Vol] 0.40 mg/dL 0.20-1.00 [facility] Comment on above: For patients on eltr ombopag therapy, use of Dimension [place] TBIL is not recommended. Chloride [Moles/Vol] 101 mmol/L 98-107 [facility] Glucose [Mass/Vol] 107 mg/dL 74-[address] [facility] Comment on above: Fasting Glucose resu lt from 100 to 125 mg/dL suggests IMPAIRED HOMEOSTASIS per A.D.A. criteria. Potassium [Moles/Vol] 4.3 mmol/L 3.5-5.1 [facility] Protein [Mass/Vol] 7.7 g/dL 6.4-8.[address] [facility] Sodium [Moles/Vol] 137 mmol/L 136-[address] [facility] Laboratory - Chemistry and C hemistry - challengeOrdered By: Murtaza Charles on 11-06-2022 Natriuretic peptide B (Bld) [Mass/Vol] 49.3 pg/mL 0-100 [facility] ALP [Catalytic activity/Vol] 61 U/L 45-117 [facility] ALT [Catalytic activity/Vol] 22 U/L 13-56 [facility] CO2 [Moles/Vol] 30.0 mmol/L 21.0-32.0 [facility] Globulin (S) [Mass/Vol] 4.1 g/dL 2.2-4.2 [facility] Urea nitrogen/Creatinine [Mass ratio] 26.4 mg/mg 10-20 [facility] No Panel InformationOrdered By: Murtaza Charles on 11-06-2022 Estimated GFR (MDRD) Amer 84 mL/min >60 [facility] Comment on above: GFR Calc Estimated GFR (MDRD) Non-Af Amer 69 mL/min >60 [facility] Comment on above: Non- GFR Calc Troponin I High Sensitivity 10 pg/mL 3.0-54.0 [facility] Comment on above: Please Note: New Padmini t Units and Gender Specific Reference Ranges. For more information see Policy Stat Procedure [place] High Sensitivity Troponin (TNIH) and attachments. Serum or plasma albumin manuel urement (mass/volume)Ordered By: Murtaza Charles on 11-06-2022 Albumin [Mass/Vol] 3.6 g/dL 3.2-5.[address] [facility] Serum or plasma albumin/glob ulin mass ratioOrdered By: Murtaza Charles on 11-06-2022 Albumin/Globulin [Mass ratio] 0.9 {ratio} 0.9-2.4 [facility] Serum or plasma calcium manuel urement (mass/volume)Ordered By: Murtaza Charles on 11-06-2022 Calcium [Mass/Vol] 9.0 mg/dL 8.5-10.[address] [facility] Serum or plasma creatinine m easurement (mass/volume)Ordered By: Murtaza Melvin on 11-06-2022 Creatinine [Mass/Vol] 0.83 mg/dL 0.55-1.02 [facility] Comment on above: The validity of the calculated GFR & GFRAA in patients over 70 years has not been determined. Clinical correlation is essential. Serum or plasma urea nitroge n measurement (mass/volume)Ordered By: Murtaza Charles on 11-06-2022 Urea nitrogen [Mass/Vol] 22 mg/dL 7-18 [facility] Thin prep Papanicolaou smear with manual screeningOrdered By: [facility] on 11-06-2022 Thin prep Papanicolaou smear with manual screening 22 U/L 15-37 [facility] Thin prep Papanicolaou smear with manual screening 6 5-15 [facility] Absolute lymphocyte countOrd ered By: Dr. Swenson on 08-26-2022 Lymphocytes Auto (Unsp spec) [#/Vol] 1.93 10*3/uL 0.83-4.51 [facility] Basophil percentageOrdered B y: Dr. Swenson on 08-26-2022 Basophils/100 WBC (Bld) 0.7 % 0-[address] [facility] Bilirubin [Mass/Vol] 0.40 mg/dL 0.20-1.00 [facility] Comment on above: For patients on eltr ombopag therapy, use of Dimension [place] TBIL is not recommended. Chloride [Moles/Vol] 101 mmol/L 98-107 [facility] Eosinophils/100 WBC (Bld) 1.2 % 0-5 [facility] Glucose [Mass/Vol] 110 mg/dL 74-[address] [facility] Comment on above: Fasting Glucose resu lt from 100 to 125 mg/dL suggests IMPAIRED HOMEOSTASIS per A.D.A. criteria. Neutrophils (Bld) [#/Vol] 5.2 10*3/uL 2.0-7.7 [facility] Neutrophils/100 WBC (Bld) 64.4 % 47-70 [facility] Potassium [Moles/Vol] 3.9 mmol/L 3.5-5.1 [facility] Protein [Mass/Vol] 7.3 g/dL 6.4-8.[address] [facility] Sodium [Moles/Vol] 136 mmol/L 136-[address] [facility] WBC (Bld) [#/Vol] 8.1 10*3/uL 4.4-11.[address] [facility] Blood erythrocytes count (nu mber/volume)Ordered By: Dr. Swenson on 08-26-2022 RBC (Bld) [#/Vol] 4.36 10*6/uL 4.2-5.[address] [facility] Blood hemoglobin measurement (mass/volume)Ordered By: Dr. Swenson on 08-26-2022 Hemoglobin (Bld) [Mass/Vol] 13.1 g/dL 12.0-15.0 [facility] Blood lymphocytes/100 leukoc ytesOrdered By: Dr. Swenson on 08-26-2022 Lymphocytes/100 WBC (Bld) 23.7 % 19-41 [facility] Blood monocytes/100 leukocyt esOrdered By: Dr. Swenson on 08-26-2022 Monocytes/100 WBC (Bld) 8.5 % 0-[address] [facility] Blood platelet mean volumeOr dered By: Dr. Swenson on 08-26-2022 Platelet mean volume (Bld) [Entitic vol] 9.8 fL 6.2-12.0 [facility] Determination of erythrocyte mean corpuscular volume (MCV)Ordered By: Dr. Swenson on 08-26-2022 MCV (RBC) [Entitic vol] 95.2 fL 81-[address] [facility] Direct bilirubinOrdered By: Dr. Swenson on 08-26-2022 Bilirubin.direct [Mass/Vol] 0.11 mg/dL 0.00-0.30 [facility] Erythrocyte sedimentation ra teOrdered By: Dr. Swenson on 08-26-2022 ESR (Bld) [Velocity] 15 mm/h 0-30 [facility] Hematocrit Auto (Bld) [Volum e fraction]Ordered By: Dr. Swenson on 08-26-2022 Hematocrit (Bld) [Volume fraction] 41.5 % 37-47 [facility] INR in Blood by Coagulation assayOrdered By: Dr. Swenson on 08-26-2022 INR Coag (Bld) [Relative time] 1.3 {INR} [facility] Laboratory - Chemistry and C hemistry - challengeOrdered By: Dr. Swenson on 08-26-2022 ALP [Catalytic activity/Vol] 59 U/L 45-117 [facility] ALT [Catalytic activity/Vol] 23 U/L 13-56 [facility] CO2 [Moles/Vol] 31.0 mmol/L 21.0-32.0 [facility] Globulin (S) [Mass/Vol] 3.5 g/dL 2.2-4.[address] [facility] Urea nitrogen/Creatinine [Mass ratio] 27.7 mg/mg 10-20 [facility] Laboratory - CoagulationOrde red By: Dr. Swenson on 08-26-2022 PT Coag (PPP) [Time] 15.5 s 11.7-14.9 [facility] Laboratory - Hematology and Cell countsOrdered By: Dr. Swenson on 08-26-2022 Erythrocyte distribution width (RBC) [Entitic vol] 51.2 fL 35.1-43.9 [facility] Erythrocyte distribution width (RBC) [Ratio] 14.6 % 11.6-14.6 [facility] Immature granulocytes/100 WBC (Bld) 1.500 % 0.0-0.9 [facility] Comment on above: IG% - Immature Granu locytes (promyelocytes, myelocytes and metamyelocytes) > 1% indicates that a LEFT SHIFT is Present. MCH (RBC) [Entitic mass] 30.0 pg 27.0-32.0 [facility] Nucleated RBC/100 WBC (Bld) [Ratio] 0 % 0-5 [facility] MCHC Auto (RBC) [Mass/Vol]Or dered By: Dr. Swenson on 08-26-2022 MCHC (RBC) [Mass/Vol] 31.6 g/dL 32-36 [facility] No Panel InformationOrdered By: Dr. Swenson on 08-26-2022 Estimated GFR (MDRD) Amer 98 mL/min >60 [facility] Comment on above: GFR Calc Estimated GFR (MDRD) Non-Af Amer 81 mL/min >60 [facility] Comment on above: Non- GFR Calc Ionized Calcium 4.9 mg/dL 4.5-5.6 [facility] Comment on above: Performed at: [facility] [address] [id number] Director: Arjun Pisano PhD, Phone: [phone] Parathyroid Hormone (Intact) 92.1 pg/mL 18.4-80.1 [facility] Thyroid Stimulating Hormone (TSH) 1.08 uIU/mL 0.358-3.74 [facility] Vitamin D 25-Hydroxy 39.6 ng/mL [facility] Comment on above: Vitamin D 25(OH) Sta tus Range Deficiency <20 ng/mL (50nmol/L) Insufficiency 20 - 30 ng/mL (50 - 75 nmol/L) Sufficiency 30 - 100 ng/mL (75 - 250 nmol/L) Toxicity >100 ng/mL (>250 nmol/L) Platelets bldOrdered By: Dr. Swenson on 08-26-2022 Platelets (Bld) [#/Vol] 365 10*3/uL 150-450 [facility] Serum or plasma albumin manuel urement (mass/volume)Ordered By: Dr. Swenson on 08-26-2022 Albumin [Mass/Vol] 3.8 g/dL 3.2-5.[address] [facility] Serum or plasma calcium manuel urement (mass/volume)Ordered By: Dr. Swenson on 08-26-2022 Calcium [Mass/Vol] 9.2 mg/dL 8.5-10.[address] [facility] Serum or plasma creatinine m easurement (mass/volume)Ordered By: Dr. Swenson on 08-26-2022 Creatinine [Mass/Vol] 0.72 mg/dL 0.55-1.02 [facility] Comment on above: The validity of the calculated GFR & GFRAA in patients over 70 years has not been determined. Clinical correlation is essential. Serum or plasma urea nitroge n measurement (mass/volume)Ordered By: Dr. Swenson on 08-26-2022 Urea nitrogen [Mass/Vol] 20 mg/dL 7-18 [facility] Thin prep Papanicolaou smear with manual screeningOrdered By: Dr. Swenson on 08-26-2022 Thin prep Papanicolaou smear with manual screening 21 U/L 15-37 [facility] Thin prep Papanicolaou smear with manual screening 4 5-15 [facility] Basophil percentageOrdered B y: Dr. Swenson on 05-20-2022 Basophil percentage 120 mg/dL 74-[address] [facility] Basophil percentage 4.9 mg/dL 2.5-4.[address] [facility] Basophil percentage 138 mmol/L 136-[address] [facility] Basophil percentage 4.1 mmol/L 3.5-5.[address] [facility] Basophil percentage 100 mmol/L 98-[address] [facility] Chloride [Moles/Vol] 100 mmol/L 98-107 [facility] Glucose [Mass/Vol] 120 mg/dL 74-[address] [facility] Comment on above: Fasting Glucose resu lt from 100 to 125 mg/dL suggests IMPAIRED HOMEOSTASIS per A.D.A. criteria. Potassium [Moles/Vol] 4.1 mmol/L 3.5-5.1 [facility] Sodium [Moles/Vol] 138 mmol/L 136-[address] [facility] Laboratory - Chemistry and C hemistry - challengeOrdered By: Dr. Swenson on 05-20-2022 CO2 [Moles/Vol] 29.0 mmol/L 21.0-32.0 [facility] Magnesium [Mass/Vol] 2.2 mg/dL 1.6-2.6 [facility] Urea nitrogen/Creatinine [Mass ratio] 27.8 mg/mg 10- [facility] No Panel InformationOrdered By: Dr. Swenson on 05-20-2022 Ionized Calcium 6.0 mg/dL 4.5-5.6 [facility] Comment on above: Performed at: [address] [id number] Director: Arjun Pisano PhD, Phone: [phone] 6.0 mg/dL 4.5-5.6 [facility] Estimated GFR (MDRD) Amer 73 mL/min >60 [facility] Comment on above: GFR Calc Estimated GFR (MDRD) Non-Af Amer 60 mL/min >60 [facility] Comment on above: Non- GFR Calc Parathyroid Hormone (Intact) 12.5 pg/mL 18.4-80.1 [facility] Thyroid Stimulating Hormone (TSH) 0.80 uIU/mL 0.358-3.74 [facility] Vitamin D 25-Hydroxy 71.5 ng/mL [facility] Comment on above: Vitamin D 25(OH) Sta tus Range Deficiency <20 ng/mL (50nmol/L) Insufficiency 20 - 30 ng/mL (50 - 75 nmol/L) Sufficiency 30 - 100 ng/mL (75 - 250 nmol/L) Toxicity >100 ng/mL (>250 nmol/L) 60 mL/min >60 [facility] 73 mL/min >60 [facility] 27.8 RATIO 10-20 [facility] 2.2 mg/dL 1.6-2.6 [facility] 29.0 mmol/L 21.0-32.0 [facility] 0.80 uIU/mL 0.358-3.74 [facility] 71.5 ng/mL [facility] 12.5 pg/mL 18.4-80.1 [facility] Serum or plasma calcium manuel urement (mass/volume)Ordered By: Dr. Swenson on 05-20-2022 Calcium [Mass/Vol] 10.3 mg/dL 8.5-10.[address] [facility] Serum or plasma creatinine m easurement (mass/volume)Ordered By: Dr. Swenson on 05-20-2022 Creatinine [Mass/Vol] 0.94 mg/dL 0.55-1.02 [facility] Comment on above: The validity of the calculated GFR & GFRAA in patients over 70 years has not been determined. Clinical correlation is essential. Serum or plasma urea nitroge n measurement (mass/volume)Ordered By: Dr. Swenson on 05-20-2022 Urea nitrogen [Mass/Vol] 26 mg/dL 7-18 [facility] Thin prep Papanicolaou smear with manual screeningOrdered By: Dr. Swenson on 05-20-2022 Thin prep Papanicolaou smear with manual screening 9 5-15 [facility] Basophil percentageOrdered B y: Zackary Lyon on 05-14-2022 Basophil percentage 6.1 g/dL 6.4-8.[address] [facility] Basophil percentage 0.30 mg/dL 0.20-1.[address] [facility] Bilirubin [Mass/Vol] 0.30 mg/dL 0.20-1.00 [facility] Comment on above: For patients on eltr ombopag therapy, use of Dimension [place] TBIL is not recommended. Protein [Mass/Vol] 6.1 g/dL 6.4-8.[address] [facility] Direct bilirubinOrdered By: Zackary Lyon on 05-14-2022 Bilirubin.direct [Mass/Vol] 0.10 mg/dL 0.00-0.30 [facility] INR in Blood by Coagulation assayOrdered By: Zackary Lyon on 05-14-2022 INR Coag (Bld) [Relative time] 1.7 {INR} [facility] Laboratory - Chemistry and C hemistry - challengeOrdered By: Zackary Lyon on 05-14-2022 ALP [Catalytic activity/Vol] 67 U/L [facility] ALT [Catalytic activity/Vol] 22 U/L [facility] Globulin (S) [Mass/Vol] 3.2 g/dL 2.2-4.2 [facility] Laboratory - CoagulationOrde red By: Zackary Lyon on 05-14-2022 PT Coag (PPP) [Time] 19.9 s 11.7-14.9 [facility] No Panel InformationOrdered By: Zackary Lyon on 05-14-2022 19.9 SECONDS 11.7-14.9 [facility] 3.2 g/dL 2.2-4.2 [facility] 67 U/L [facility] 22 U/L [facility] Serum or plasma albumin manuel urement (mass/volume)Ordered By: Ruthnataly Lyon on 05-14-2022 Albumin [Mass/Vol] 2.9 g/dL 3.2-5.[address] [facility] Thin prep Papanicolaou smear with manual screeningOrdered By: Zackary Pantojasalvador on 05-14-2022 Thin prep Papanicolaou smear with manual screening 20 U/L 15-37 [facility] Absolute lymphocyte countOrd ered By: Zackary Toddmonicasalvador on 04-29-2022 Lymphocytes Auto (Unsp spec) [#/Vol] 2.40 10*3/uL 0.83-4.51 [facility] Basophil percentageOrdered B y: Zackary Toddmonicasavlador on 04-29-2022 Basophil percentage 78 mg/dL 74-[address] [facility] Basophil percentage 136 mmol/L 136-[address] [facility] Basophil percentage 4.2 mmol/L 3.5-5.[address] [facility] Basophil percentage 100 mmol/L 98-[address] [facility] Basophils (Bld) [#/Vol] 7.1 10*3/uL 4.4-11.0 [facility] Basophils (Bld) [#/Vol] 3.5 10*3/uL 2.0-7.7 [facility] Basophils/100 WBC (Bld) 0.7 % 0-[address] [facility] Basophils/100 WBC (Bld) 48.4 % 47-[address] [facility] Basophils/100 WBC (Bld) 3.6 % 0-5 [facility] Basophil percentageon 2021 Chloride [Moles/Vol] 100 mmol/L 98-107 [facility] Work Phone: [phone] Eosinophils/100 WBC (Bld) 3.6 % 0-5 [facility] Work Phone: [phone] Glucose [Mass/Vol] 78 mg/dL 74-[address] [facility] Work Phone: Neutrophils (Bld) [#/Vol] 3.5 10*3/uL 2.0-7.7 [facility] Work Phone: Neutrophils/100 WBC (Bld) 48.4 % 47-70 [facility] Work Phone: Potassium [Moles/Vol] 4.2 mmol/L 3.5-5.1 [facility] Work Phone: Comment on above: Slight Hemolysis, Re sult may be falsely increased. Sodium [Moles/Vol] 136 mmol/L 136-[address] [facility] Work Phone: WBC (Bld) [#/Vol] 7.1 10*3/uL 4.4-11.[address] [facility] Work Phone: Blood erythrocytes count (nu mber/volume)Ordered By: Zackary Lyon on 04-29-2022 RBC (Bld) [#/Vol] 3.75 10*6/uL 4.2-5.[address] [facility] Blood hemoglobin measurement (mass/volume)Ordered By: Zackary Lyon on 04-29-2022 Hemoglobin (Bld) [Mass/Vol] 10.8 g/dL 12.0-15.0 [facility] Blood lymphocytes/100 leukoc ytesOrdered By: Zackary Lyon on 04-29-2022 Lymphocytes/100 WBC (Bld) 33.7 % 19-41 [facility] Blood monocytes/100 leukocyt esOrdered By: Zackary Lyon on 04-29-2022 Monocytes/100 WBC (Bld) 13.0 % 0-[address] [facility] Blood platelet mean volumeOr dered By: Zackary Lyon on 04-29-2022 Platelet mean volume (Bld) [Entitic vol] 10.1 fL 6.2-12.0 [facility] Determination of erythrocyte mean corpuscular volume (MCV)Ordered By: Zackary Lyon on 04-29-2022 MCV (RBC) [Entitic vol] 95.5 fL 81-[address] [facility] Hematocrit Auto (Bld) [Volum e fraction]Ordered By: Zackary Lyon on 04-29-2022 Hematocrit (Bld) [Volume fraction] 35.8 % 37-47 [facility] INR in Blood by Coagulation assayOrdered By: Zackary Lyon on 04-29-2022 INR Coag (Bld) [Relative time] 1.4 {INR} [facility] Laboratory - Chemistry and C hemistry - challengeon 04-29-2022 CO2 [Moles/Vol] 31.0 mmol/L 21.0-32.0 [facility] Work Phone: Urea nitrogen/Creatinine [Mass ratio] 27.9 mg/mg 10-20 [facility] Work Phone: Laboratory - Coagulationon 1 06-30-2021 PT Coag (PPP) [Time] 17.2 s 11.7-14.9 [facility] Work Phone: Laboratory - Hematology and Cell countson 04-29-2022 Erythrocyte distribution width (RBC) [Entitic vol] 48.3 fL 35.1-43.9 [facility] Work Phone: Erythrocyte distribution width (RBC) [Ratio] 13.7 % 11.6-14.6 [facility] Work Phone: Immature granulocytes/100 WBC (Bld) 0.600 % 0.0-0.9 [facility] Work Phone: Comment on above: IG% - Immature Granu locytes (promyelocytes, myelocytes and metamyelocytes) > 1% indicates that a LEFT SHIFT is Present. MCH (RBC) [Entitic mass] 28.8 pg 27.0-32.0 [facility] Work Phone: Nucleated RBC/100 WBC (Bld) [Ratio] 0 % 0-5 [facility] Work Phone: MCHC Auto (RBC) [Mass/Vol]Or dered By: Zackary Lyon on 04-29-2022 MCHC (RBC) [Mass/Vol] 30.2 g/dL 32-36 [facility] No Panel Informationon 04-29 Estimated GFR (MDRD) Amer 73 mL/min >60 [facility] Work Phone: Comment on above: GFR Calc Estimated GFR (MDRD) Non-Af Amer 61 mL/min >60 [facility] Work Phone: Comment on above: Non- GFR Calc No Panel InformationOrdered By: Zackary Lyon on 04-29-2022 28.8 pg 27.0-32.0 [facility] 13.7 % 11.6-14.6 [facility] 48.3 fl 35.1-43.9 [facility] 0.600 % 0.0-0.9 [facility] 0 % 0-5 [facility] 17.2 SECONDS 11.7-14.9 [facility] 61 mL/min >60 [facility] 73 mL/min >60 [facility] 27.9 RATIO 10-20 [facility] 31.0 mmol/L 21.0-32.0 [facility] Platelets bldOrdered By: James Lyon on 04-29-2022 Platelets (Bld) [#/Vol] 288 10*3/uL 150-450 [facility] Serum or plasma calcium manuel urement (mass/volume)Ordered By: Zackary Lyon on 04-29-2022 Calcium [Mass/Vol] 9.6 mg/dL 8.5-10.[address] [facility] Serum or plasma creatinine m easurement (mass/volume)Ordered By: Zackary Lyon on 04-29-2022 Creatinine [Mass/Vol] 0.93 mg/dL 0.55-1.02 [facility] Comment on above: The validity of the calculated GFR & GFRAA in patients over 70 years has not been determined. Clinical correlation is essential. Serum or plasma urea nitroge n measurement (mass/volume)Ordered By: Zackary Lyon on 04-29-2022 Urea nitrogen [Mass/Vol] 26 mg/dL 7-18 [facility] Thin prep Papanicolaou smear with manual screeningOrdered By: Zackary Lyon on 04-29-2022 Thin prep Papanicolaou smear with manual screening 5 5-15 [facility] Absolute lymphocyte countOrd ered By: Zackary Lyon on 04-22-2022 Lymphocytes Auto (Unsp spec) [#/Vol] 1.78 10*3/uL 0.83-4.51 [facility] Basophil percentageOrdered B y: Zackary Lyon on 04-22-2022 Basophil percentage 104 mg/dL 74-[address] [facility] Basophil percentage 134 mmol/L 136-[address] [facility] Basophil percentage 4.6 mmol/L 3.5-5.[address] [facility] Basophil percentage 100 mmol/L 98-[address] [facility] Basophils (Bld) [#/Vol] 6.6 10*3/uL 4.4-11.0 [facility] Basophils (Bld) [#/Vol] 3.8 10*3/uL 2.0-7.7 [facility] Basophils/100 WBC (Bld) 0.8 % 0-[address] [facility] Basophils/100 WBC (Bld) 57.9 % 47-[address] [facility] Basophils/100 WBC (Bld) 3.2 % 0-[address] [facility] Basophil percentageon 2021 Chloride [Moles/Vol] 100 mmol/L 98-107 [facility] Work Phone: [phone] Eosinophils/100 WBC (Bld) 3.2 % 0-5 [facility] Work Phone: [phone] Glucose [Mass/Vol] 104 mg/dL 74-[address] [facility] Work Phone: [phone] Comment on above: Fasting Glucose resu lt from 100 to 125 mg/dL suggests IMPAIRED HOMEOSTASIS per A.D.A. criteria. Neutrophils (Bld) [#/Vol] 3.8 10*3/uL 2.0-7.7 [facility] Work Phone: Neutrophils/100 WBC (Bld) 57.9 % 47-70 [facility] Work Phone: [phone] Potassium [Moles/Vol] 4.6 mmol/L 3.5-5.1 [facility] Work Phone: [phone] Comment on above: Slight Hemolysis, Re sult may be falsely increased. Sodium [Moles/Vol] 134 mmol/L 136-[address] [facility] Work Phone: WBC (Bld) [#/Vol] 6.6 10*3/uL 4.4-11.[address] [facility] Work Phone: Blood erythrocytes count (nu mber/volume)Ordered By: Zackary Lyon on 04-22-2022 RBC (Bld) [#/Vol] 3.68 10*6/uL 4.2-5.[address] [facility] Blood hemoglobin measurement (mass/volume)Ordered By: Zackary Lyon on 04-22-2022 Hemoglobin (Bld) [Mass/Vol] 12.0 g/dL 12.0-15.0 [facility] Blood lymphocytes/100 leukoc ytesOrdered By: Zackary Lyon on 04-22-2022 Lymphocytes/100 WBC (Bld) 27.1 % 19-41 [facility] Blood monocytes/100 leukocyt esOrdered By: yarieldenvernataly Lyon on 04-22-2022 Monocytes/100 WBC (Bld) 9.9 % 0-[address] [facility] Blood platelet mean volumeOr dered By: yarieldenvernataly Lyon on 04-22-2022 Platelet mean volume (Bld) [Entitic vol] 10.1 fL 6.2-12.0 [facility] Determination of erythrocyte mean corpuscular volume (MCV)Ordered By: Zackary Lyon on 04-22-2022 MCV (RBC) [Entitic vol] 102.4 fL 81-[address] [facility] Hematocrit Auto (Bld) [Volum e fraction]Ordered By: Zackary Lyon on 04-22-2022 Hematocrit (Bld) [Volume fraction] 37.7 % 37-47 [facility] INR in Blood by Coagulation assayOrdered By: Zackary Lyon on 04-22-2022 INR Coag (Bld) [Relative time] 1.3 {INR} [facility] Laboratory - Chemistry and C hemistry - challengeon 04-22-2022 CO2 [Moles/Vol] 28.0 mmol/L 21.0-32.0 [facility] Work Phone: Urea nitrogen/Creatinine [Mass ratio] 23.2 mg/mg 10-20 [facility] Work Phone: Laboratory - Coagulationon 1 06-23-2021 PT Coag (PPP) [Time] 15.6 s 11.7-14.9 [facility] Work Phone: Laboratory - Hematology and Cell countson 04-22-2022 Erythrocyte distribution width (RBC) [Entitic vol] 52.9 fL 35.1-43.9 [facility] Work Phone: Erythrocyte distribution width (RBC) [Ratio] 16.4 % 11.6-14.6 [facility] Work Phone: Immature granulocytes/100 WBC (Bld) 1.100 % 0.0-0.9 [facility] Work Phone: Comment on above: IG% - Immature Granu locytes (promyelocytes, myelocytes and metamyelocytes) > 1% indicates that a LEFT SHIFT is Present. MCH (RBC) [Entitic mass] 32.6 pg 27.0-32.0 [facility] Work Phone: Nucleated RBC/100 WBC (Bld) [Ratio] 0 % 0-5 [facility] Work Phone: MCHC Auto (RBC) [Mass/Vol]Or dered By: Zackary Lyon on 04-22-2022 MCHC (RBC) [Mass/Vol] 31.8 g/dL 32-36 [facility] Comment on above: Delta: 30.1 on 04/18 No Panel Informationon 04-22 Estimated GFR (MDRD) Amer 76 mL/min >60 [facility] Work Phone: Comment on above: GFR Calc Estimated GFR (MDRD) Non-Af Amer 63 mL/min >60 [facility] Work Phone: Comment on above: Non- GFR Calc No Panel InformationOrdered By: Zackary Lyon on 04-22-2022 32.6 pg 27.0-32.0 [facility] 16.4 % 11.6-14.6 [facility] 52.9 fl 35.1-43.9 [facility] 1.100 % 0.0-0.9 [facility] 0 % 0-5 [facility] 15.6 SECONDS 11.7-14.9 [facility] 63 mL/min >60 [facility] 76 mL/min >60 [facility] 23.2 RATIO 10-20 [facility] 28.0 mmol/L 21.0-32.0 [facility] Platelets bldOrdered By: James Lyon on 04-22-2022 Platelets (Bld) [#/Vol] 270 10*3/uL 150-450 [facility] Serum or plasma calcium manuel urement (mass/volume)Ordered By: Zackary Lyon on 04-22-2022 Calcium [Mass/Vol] 9.6 mg/dL 8.5-10.[address] [facility] Serum or plasma creatinine m easurement (mass/volume)Ordered By: Zackary Lyon on 04-22-2022 Creatinine [Mass/Vol] 0.90 mg/dL 0.55-1.02 [facility] Comment on above: The validity of the calculated GFR & GFRAA in patients over 70 years has not been determined. Clinical correlation is essential. Serum or plasma urea nitroge n measurement (mass/volume)Ordered By: Zackary Lyon on 04-22-2022 Urea nitrogen [Mass/Vol] 21 mg/dL 7-18 [facility] Thin prep Papanicolaou smear with manual screeningOrdered By: Zackary Lyon on 04-22-2022 Thin prep Papanicolaou smear with manual screening 6 5-15 [facility] Absolute lymphocyte countOrd ered By: Dr. Jimenez on 04-18-2022 Lymphocytes Auto (Unsp spec) [#/Vol] 1.62 10*3/uL 0.83-4.51 [facility] Basophil percentageOrdered B y: Dr. Jimenez on 04-18-2022 Basophil percentage 86 mg/dL 74-[address] [facility] Basophil percentage 134 mmol/L 136-[address] [facility] Basophil percentage 3.3 mmol/L 3.5-5.[address] [facility] Basophil percentage 99 mmol/L 98-[address] [facility] Basophils (Bld) [#/Vol] 7.4 10*3/uL 4.4-11.0 [facility] Basophils (Bld) [#/Vol] 4.6 10*3/uL 2.0-7.7 [facility] Basophils/100 WBC (Bld) 0.8 % 0-[address] [facility] Basophils/100 WBC (Bld) 61.5 % 47-[address] [facility] Basophils/100 WBC (Bld) 3.8 % 0-[address] [facility] Basophil percentageon 2021 Chloride [Moles/Vol] 99 mmol/L 98-107 [facility] Work Phone: Eosinophils/100 WBC (Bld) 3.8 % 0-5 [facility] Work Phone: Glucose [Mass/Vol] 86 mg/dL 74-[address] [facility] Work Phone: Neutrophils (Bld) [#/Vol] 4.6 10*3/uL 2.0-7.7 [facility] Work Phone: Neutrophils/100 WBC (Bld) 61.5 % 47-70 [facility] Work Phone: Potassium [Moles/Vol] 3.3 mmol/L 3.5-5.1 [facility] Work Phone: Sodium [Moles/Vol] 134 mmol/L 136-[address] [facility] Work Phone: WBC (Bld) [#/Vol] 7.4 10*3/uL 4.4-11.[address] [facility] Work Phone: Blood erythrocytes count (nu mber/volume)Ordered By: Dr. Jimenez on 04-18-2022 RBC (Bld) [#/Vol] 3.79 10*6/uL 4.2-5.[address] [facility] Blood hemoglobin measurement (mass/volume)Ordered By: Dr. Jimenez on 04-18-2022 Hemoglobin (Bld) [Mass/Vol] 11.5 g/dL 12.0-15.0 [facility] Blood lymphocytes/100 leukoc ytesOrdered By: Dr. Jimenez on 04-18-2022 Lymphocytes/100 WBC (Bld) 21.8 % 19-41 [facility] Blood monocytes/100 leukocyt esOrdered By: Dr. Jimenez on 04-18-2022 Monocytes/100 WBC (Bld) 11.4 % 0-[address] [facility] Blood platelet mean volumeOr dered By: Dr. Jimenez on 04-18-2022 Platelet mean volume (Bld) [Entitic vol] 9.2 fL 6.2-12.0 [facility] COVID-19 virus antigen assay Ordered By: Dr. Maza on 04-18-2022 SARS-CoV-2 (COVID-19) Ag IA.rapid Ql (Resp) [facility] Determination of erythrocyte mean corpuscular volume (MCV)Ordered By: Dr. Jimenez on 04-18-2022 MCV (RBC) [Entitic vol] 100.8 fL 81-[address] [facility] Comment on above: Delta: 91.9 on 04/17-0548 Hematocrit Auto (Bld) [Volum e fraction]Ordered By: Dr. Jimenez on 04-18-2022 Hematocrit (Bld) [Volume fraction] 38.2 % 37-47 [facility] Laboratory - Chemistry and C hemistry - challengeon 04-18-2022 CO2 [Moles/Vol] 28.0 mmol/L 21.0-32.0 [facility] Work Phone: Urea nitrogen/Creatinine [Mass ratio] 19.1 mg/mg 10-20 [facility] Work Phone: Laboratory - Hematology and Cell countson 04-18-2022 Erythrocyte distribution width (RBC) [Entitic vol] 50.6 fL 35.1-43.9 [facility] Work Phone: Erythrocyte distribution width (RBC) [Ratio] 13.8 % 11.6-14.6 [facility] Work Phone: Immature granulocytes/100 WBC (Bld) 0.700 % 0.0-0.9 [facility] Work Phone: Comment on above: IG% - Immature Granu locytes (promyelocytes, myelocytes and metamyelocytes) > 1% indicates that a LEFT SHIFT is Present. MCH (RBC) [Entitic mass] 30.3 pg 27.0-32.0 [facility] Work Phone: Nucleated RBC/100 WBC (Bld) [Ratio] 0 % 0-5 [facility] Work Phone: MCHC Auto (RBC) [Mass/Vol]Or dered By: Dr. Jimenez on 04-18-2022 MCHC (RBC) [Mass/Vol] 30.1 g/dL 32-36 [facility] No Panel Informationon 04-18 Estimated Creatinine Clearance Calc 30.86 ml/min [facility] Work Phone: Estimated GFR (MDRD) Amer 72 mL/min >60 [facility] Work Phone: Comment on above: GFR Calc Estimated GFR (MDRD) Non-Af Amer 60 mL/min >60 [facility] Work Phone: Comment on above: Non- GFR Calc No Panel InformationOrdered By: Dr. Jimenez on 04-18-2022 30.3 pg 27.0-32.0 [facility] 13.8 % 11.6-14.6 [facility] 50.6 fl 35.1-43.9 [facility] 0.700 % 0.0-0.9 [facility] 0 % 0-5 [facility] 60 mL/min >60 [facility] 72 mL/min >60 [facility] 30.86 ml/min [facility] 19.1 RATIO 10-20 [facility] 28.0 mmol/L 21.0-32.0 [facility] Platelets bldOrdered By: Dr. Jimenez on 04-18-2022 Platelets (Bld) [#/Vol] 361 10*3/uL 150-450 [facility] Serum or plasma calcium manuel urement (mass/volume)Ordered By: Dr. Jimenez on 04-18-2022 Calcium [Mass/Vol] 9.5 mg/dL 8.5-10.[address] [facility] Serum or plasma creatinine m easurement (mass/volume)Ordered By: Dr. Jimenez on 04-18-2022 Creatinine [Mass/Vol] 0.94 mg/dL 0.55-1.02 [facility] Comment on above: The validity of the calculated GFR & GFRAA in patients over 70 years has not been determined. Clinical correlation is essential. Serum or plasma urea nitroge n measurement (mass/volume)Ordered By: Dr. Jimenez on 04-18-2022 Urea nitrogen [Mass/Vol] 18 mg/dL 7-18 [facility] Thin prep Papanicolaou smear with manual screeningOrdered By: Dr. Jimenez on 04-18-2022 Thin prep Papanicolaou smear with manual screening 7 5-15 [facility] Basophil percentageOrdered B y: Dr. Judd on 04-16-2022 Basophil percentage 6.7 g/dL 6.4-8.[address] [facility] Basophil percentage 0.40 mg/dL 0.20-1.[address] [facility] Basophil percentageon 2021 Bilirubin [Mass/Vol] 0.40 mg/dL 0.20-1.00 [facility] Work Phone: Comment on above: For patients on eltr ombopag therapy, use of Dim[place] TBIL is not recommended. Protein [Mass/Vol] 6.7 g/dL 6.4-8.[address] [facility] Work Phone: Direct bilirubinOrdered By: Dr. Judd on 04-16-2022 Bilirubin.direct [Mass/Vol] 0.12 mg/dL 0.00-0.30 [facility] INR in Blood by Coagulation assayOrdered By: Dr. Maza on 04-16-2022 INR Coag (Bld) [Relative time] 1.3 {INR} [facility] Laboratory - Chemistry and C hemistry - challengeon 04-16-2022 ALP [Catalytic activity/Vol] 75 U/L 45-117 [facility] Work Phone: ALT [Catalytic activity/Vol] 14 U/L 13-56 [facility] Work Phone: Globulin (S) [Mass/Vol] 3.6 g/dL 2.2-4.[address] [facility] Work Phone: Laboratory - Coagulationon 1 06-17-2021 aPTT Coag (Bld) [Time] 31.7 s 24.1-36.2 [facility] Work Phone: PT Coag (PPP) [Time] 15.5 s 11.7-14.9 [facility] Work Phone: No Panel InformationOrdered By: Dr. Maza on 04-16-2022 15.5 SECONDS 11.7-14.9 [facility] No Panel InformationOrdered By: Dr. Judd on 04-16-2022 31.7 Seconds 24.1-36.2 [facility] 3.6 g/dL 2.2-4.2 [facility] 75 U/L 45-117 [facility] 14 U/L 13-56 [facility] Serum or plasma albumin manuel urement (mass/volume)Ordered By: Dr. Judd on 04-16-2022 Albumin [Mass/Vol] 3.1 g/dL 3.2-5.[address] [facility] Thin prep Papanicolaou smear with manual screeningOrdered By: Dr. Judd on 04-16-2022 Thin prep Papanicolaou smear with manual screening 16 U/L 15-37 [facility] INR in Blood by Coagulation assayon 04-11-2022 INR Coag (Bld) [Relative time] 3.4 {INR} [facility] Work Phone: Laboratory - Coagulationon 1 06-12-2021 PT Coag (PPP) [Time] 33.7 s 11.7-14.9 [facility] Work Phone: Absolute lymphocyte counton 04-10-2022 Lymphocytes Auto (Unsp spec) [#/Vol] 1.24 10*3/uL 0.83-4.51 [facility] Work Phone: Basophil percentageon 2021 Basophils/100 WBC (Bld) 0.4 % 0-[address] [facility] Work Phone: Bilirubin [Mass/Vol] 0.40 mg/dL 0.20-1.00 [facility] Work Phone: [phone] Comment on above: For patients on eltr ombopag therapy, use of [place] TBIL is not recommended. Chloride [Moles/Vol] 99 mmol/L 98-107 [facility] Work Phone: Eosinophils/100 WBC (Bld) 0.5 % 0-5 [facility] Work Phone: Glucose [Mass/Vol] 120 mg/dL 74-[address] [facility] Work Phone: Comment on above: Fasting Glucose resu lt from 100 to 125 mg/dL suggests IMPAIRED HOMEOSTASIS per A.D.A. criteria. Neutrophils (Bld) [#/Vol] 6.4 10*3/uL 2.0-7.7 [facility] Work Phone: Neutrophils/100 WBC (Bld) 77.0 % 47-70 [facility] Work Phone: Potassium [Moles/Vol] 4.1 mmol/L 3.5-5.1 [facility] Work Phone: Protein [Mass/Vol] 7.4 g/dL 6.4-8.[address] [facility] Work Phone: Sodium [Moles/Vol] 138 mmol/L 136-[address] [facility] Work Phone: WBC (Bld) [#/Vol] 8.4 10*3/uL 4.4-11.[address] [facility] Work Phone: Basophil percentageOrdered B y: Dr. Snow on 04-10-2022 Basophil percentage 0-5 SEEN /hpf 0-5 [facility] Bilirubin Test strip Ql (U)O rdered By: Dr. Snow on 04-10-2022 Bilirubin Ql (U) Negative Negative [facility] Blood erythrocytes count (nu mber/volume)on 04-10-2022 RBC (Bld) [#/Vol] 4.09 10*6/uL 4.2-5.[address] [facility] Work Phone: Blood hemoglobin measurement (mass/volume)on 04-10-2022 Hemoglobin (Bld) [Mass/Vol] 11.9 g/dL 12.0-15.0 [facility] Work Phone: Blood lymphocytes/100 leukoc yteson 04-10-2022 Lymphocytes/100 WBC (Bld) 14.9 % 19-41 [facility] Work Phone: Blood monocytes/100 leukocyt eson 04-10-2022 Monocytes/100 WBC (Bld) 6.5 % 0-[address] [facility] Work Phone: Blood platelet mean volumeon 04-10-2022 Platelet mean volume (Bld) [Entitic vol] 9.4 fL 6.2-12.0 [facility] Work Phone: Determination of erythrocyte mean corpuscular volume (MCV)on 04-10-2022 MCV (RBC) [Entitic vol] 91.7 fL 81-[address] [facility] Work Phone: Hematocrit Auto (Bld) [Volum e fraction]on 04-10-2022 Hematocrit (Bld) [Volume fraction] 37.5 % 37-47 [facility] Work Phone: INR in Blood by Coagulation assayon 04-10-2022 INR Coag (Bld) [Relative time] 3.5 {INR} [facility] Work Phone: Ketones Test strip Ql (U)Ord ered By: Dr. Snow on 04-10-2022 Ketones Ql (U) 5 mg/dl Negative [facility] Laboratory - Chemistry and C hemistry - challengeon 04-10-2022 ALP [Catalytic activity/Vol] 87 U/L 45-117 [facility] Work Phone: ALT [Catalytic activity/Vol] 17 U/L 13-56 [facility] Work Phone: CO2 [Moles/Vol] 31.0 mmol/L 21.0-32.0 [facility] Work Phone: Globulin (S) [Mass/Vol] 4.0 g/dL 2.2-4.[address] [facility] Work Phone: Urea nitrogen/Creatinine [Mass ratio] 22.8 mg/mg 10-20 [facility] Work Phone: Laboratory - Coagulationon 1 06-10-2021 PT Coag (PPP) [Time] 35.0 s 11.7-14.9 [facility] Work Phone: Laboratory - Hematology and Cell countson 04-10-2022 Erythrocyte distribution width (RBC) [Entitic vol] 46.0 fL 35.1-43.9 [facility] Work Phone: Erythrocyte distribution width (RBC) [Ratio] 13.5 % 11.6-14.6 [facility] Work Phone: Immature granulocytes/100 WBC (Bld) 0.700 % 0.0-0.9 [facility] Work Phone: Comment on above: IG% - Immature Granu locytes (promyelocytes, myelocytes and metamyelocytes) > 1% indicates that a LEFT SHIFT is Present. MCH (RBC) [Entitic mass] 29.1 pg 27.0-32.0 [facility] Work Phone: Nucleated RBC/100 WBC (Bld) [Ratio] 0 % 0-5 [facility] Work Phone: MCHC Auto (RBC) [Mass/Vol]on 04-10-2022 MCHC (RBC) [Mass/Vol] 31.7 g/dL 32-36 [facility] Work Phone: Mucus LM Ql (Urine sed)Order ed By: Dr. Snow on 04-10-2022 Mucus Ql (Urine sed) 0 SEEN /hpf [facility] Nitrite Test strip Ql (U)Ord ered By: Dr. Snow on 04-10-2022 Nitrite Ql (U) Negative Negative [facility] No Panel Informationon 04-10 Estimated Creatinine Clearance Calc 29.01 ml/min [facility] Work Phone: Estimated GFR (MDRD) Amer 95 mL/min >60 [facility] Work Phone: Comment on above: GFR Calc Estimated GFR (MDRD) Non-Af Amer 78 mL/min >60 [facility] Work Phone: Comment on above: Non- GFR Calc Platelets bldon 04-10-2022 Platelets (Bld) [#/Vol] 341 10*3/uL 150-450 [facility] Work Phone: Protein Test strip Ql (U)Ord ered By: Dr. Snow on 04-10-2022 Protein Ql (U) 30 mg/dl Negative [facility] Serum or plasma albumin manuel urement (mass/volume)on 04-10-2022 Albumin [Mass/Vol] 3.4 g/dL 3.2-5.[address] [facility] Work Phone: Serum or plasma albumin/glob ulin mass ratioOrdered By: Dr. Snow on 04-10-2022 Albumin/Globulin [Mass ratio] 0.8 {ratio} 0.9-2.4 [facility] Serum or plasma calcium manuel urement (mass/volume)on 04-10-2022 Calcium [Mass/Vol] 10.1 mg/dL 8.5-10.[address] [facility] Work Phone: Serum or plasma creatinine m easurement (mass/volume)on 04-10-2022 Creatinine [Mass/Vol] 0.75 mg/dL 0.55-1.02 [facility] Work Phone: Comment on above: The validity of the calculated GFR & GFRAA in patients over 70 years has not been determined. Clinical correlation is essential. Serum or plasma urea nitroge n measurement (mass/volume)on 04-10-2022 Urea nitrogen [Mass/Vol] 17 mg/dL 7-18 [facility] Work Phone: Squamous epithelial cells de tection in urine sediment by light microscopyOrdered By: Dr. Snow on 04-10-2022 Epithelial cells.squamous LM Ql (Urine sed) 0-5 SEEN /hpf 5-10 [facility] Thin prep Papanicolaou smear with manual screeningon 04-10-2022 Thin prep Papanicolaou smear with manual screening 18 U/L 15-37 [facility] Work Phone: Thin prep Papanicolaou smear with manual screening 8 5-15 [facility] Work Phone: Urine blood detectionOrdered By: Dr. Snow on 04-10-2022 RBC Ql (U) 10 /ul Negative [facility] RBC Ql (U) 0 SEEN /hpf 0-5 [facility] Urine clarityOrdered By: Dr. Snow on 04-10-2022 Clarity (U) Clear Clear [facility] Urine color determinationOrd ered By: Dr. Snow on 04-10-2022 Color (U) Yellow Yellow [facility] Urine glucose detectionOrder ed By: Dr. Snow on 04-10-2022 Glucose Ql (U) Normal mg/dl Normal [facility] Urine leukocyte esterase det ection by dipstickOrdered By: Dr. Snow on 04-10-2022 Leukocyte esterase Test strip Ql (U) 25 /ul Negative [facility] Urine pHOrdered By: Dr. Bhavik schneider on 04-10-2022 pH (U) 8.0 [pH] 5.0 - 8.0 [facility] Urine sediment bacteria coun t by microscopy (number/high power field)Ordered By: Dr. Snow on 04-10-2022 Bacteria LM.HPF (Urine sed) [#/Area] RARE /hpf None Seen [facility] Urine specific gravity measu rementOrdered By: Dr. Snow on 04-10-2022 Specific gravity (U) [Rel density] 1.010 1.002-1.030 [facility] Urobilinogen Auto test strip Ql (U)Ordered By: Dr. Snow on 04-10-2022 Urobilinogen Ql (U) Normal mg/dl Normal [facility] Absolute lymphocyte countOrd ered By: Dr. Marshall on 03-17-2022 Lymphocytes Auto (Unsp spec) [#/Vol] 2.46 10*3/uL 0.83-4.51 [facility] Basophil percentageOrdered B y: Dr. Marshall on 03-17-2022 Basophil percentage 89 mg/dL 74-[address] [facility] Basophil percentage 138 mmol/L 136-[address] [facility] Basophil percentage 4.2 mmol/L 3.5-5.[address] [facility] Basophil percentage 105 mmol/L 98-[address] [facility] Basophils (Bld) [#/Vol] 8.7 10*3/uL 4.4-11.0 [facility] Basophils (Bld) [#/Vol] 5.3 10*3/uL 2.0-7.7 [facility] Basophils/100 WBC (Bld) 0.7 % 0-[address] [facility] Basophils/100 WBC (Bld) 61.1 % 47-[address] [facility] Basophils/100 WBC (Bld) 1.7 % 0-[address] [facility] Basophil percentageon 2021 Chloride [Moles/Vol] 105 mmol/L 98-107 [facility] Work Phone: Eosinophils/100 WBC (Bld) 1.7 % 0-5 [facility] Work Phone: Glucose [Mass/Vol] 89 mg/dL 74-[address] [facility] Work Phone: Neutrophils (Bld) [#/Vol] 5.3 10*3/uL 2.0-7.7 [facility] Work Phone: Neutrophils/100 WBC (Bld) 61.1 % 47-70 [facility] Work Phone: Potassium [Moles/Vol] 4.2 mmol/L 3.5-5.1 [facility] Work Phone: Sodium [Moles/Vol] 138 mmol/L 136-[address] [facility] Work Phone: WBC (Bld) [#/Vol] 8.7 10*3/uL 4.4-11.[address] [facility] Work Phone: Blood erythrocytes count (nu mber/volume)Ordered By: Dr. Marshall on 03-17-2022 RBC (Bld) [#/Vol] 4.23 10*6/uL 4.2-5.[address] [facility] Blood hemoglobin measurement (mass/volume)Ordered By: Dr. Marshall on 03-17-2022 Hemoglobin (Bld) [Mass/Vol] 12.6 g/dL 12.0-15.0 [facility] Blood lymphocytes/100 leukoc ytesOrdered By: Dr. Marshall on 03-17-2022 Lymphocytes/100 WBC (Bld) 28.2 % 19-41 [facility] Blood monocytes/100 leukocyt esOrdered By: Dr. Marshall on 03-17-2022 Monocytes/100 WBC (Bld) 7.6 % 0-[address] [facility] Blood platelet mean volumeOr dered By: Dr. Marshall on 03-17-2022 Platelet mean volume (Bld) [Entitic vol] 9.7 fL 6.2-12.0 [facility] Determination of erythrocyte mean corpuscular volume (MCV)Ordered By: Dr. Marshall on 03-17-2022 MCV (RBC) [Entitic vol] 92.9 fL 81-[address] [facility] Hematocrit Auto (Bld) [Volum e fraction]Ordered By: Dr. Marshall on 03-17-2022 Hematocrit (Bld) [Volume fraction] 39.3 % 37-47 [facility] INR in Blood by Coagulation assayOrdered By: Dr. Marshall on 03-17-2022 INR Coag (Bld) [Relative time] 2.5 {INR} [facility] Laboratory - Chemistry and C hemistry - challengeon 03-17-2022 CO2 [Moles/Vol] 27.0 mmol/L 21.0-32.0 [facility] Work Phone: Urea nitrogen/Creatinine [Mass ratio] 22.0 mg/mg 10-20 [facility] Work Phone: Laboratory - Coagulationon 1 05-17-2021 PT Coag (PPP) [Time] 26.7 s 11.7-14.9 [facility] Work Phone: Laboratory - Hematology and Cell countson 03-17-2022 Erythrocyte distribution width (RBC) [Entitic vol] 47.2 fL 35.1-43.9 [facility] Work Phone: Erythrocyte distribution width (RBC) [Ratio] 13.8 % 11.6-14.6 [facility] Work Phone: Immature granulocytes/100 WBC (Bld) 0.700 % 0.0-0.9 [facility] Work Phone: Comment on above: IG% - Immature Granu locytes (promyelocytes, myelocytes and metamyelocytes) > 1% indicates that a LEFT SHIFT is Present. MCH (RBC) [Entitic mass] 29.8 pg 27.0-32.0 [facility] Work Phone: Nucleated RBC/100 WBC (Bld) [Ratio] 0 % 0-5 [facility] Work Phone: MCHC Auto (RBC) [Mass/Vol]Or dered By: Dr. Marshall on 03-17-2022 MCHC (RBC) [Mass/Vol] 32.1 g/dL 32-36 [facility] No Panel Informationon 03-17 Estimated Creatinine Clearance Calc 31.04 ml/min [facility] Work Phone: Estimated GFR (MDRD) Amer 91 mL/min >60 [facility] Work Phone: Comment on above: GFR Calc Estimated GFR (MDRD) Non-Af Amer 75 mL/min >60 [facility] Work Phone: Comment on above: Non- GFR Calc No Panel InformationOrdered By: Dr. Marshall on 03-17-2022 29.8 pg 27.0-32.0 [facility] 13.8 % 11.6-14.6 [facility] 47.2 fl 35.1-43.9 [facility] 0.700 % 0.0-0.9 [facility] 0 % 0-5 [facility] 26.7 SECONDS 11.7-14.9 [facility] 75 mL/min >60 [facility] 91 mL/min >60 [facility] 31.04 ml/min [facility] 22.0 RATIO 10-20 [facility] 27.0 mmol/L 21.0-32.0 [facility] Platelets bldOrdered By: Dr. Marshall on 03-17-2022 Platelets (Bld) [#/Vol] 335 10*3/uL 150-450 [facility] Serum or plasma calcium manuel urement (mass/volume)Ordered By: Dr. Marshall on 03-17-2022 Calcium [Mass/Vol] 9.7 mg/dL 8.5-10.[address] [facility] Serum or plasma creatinine m easurement (mass/volume)Ordered By: Dr. Marshall on 03-17-2022 Creatinine [Mass/Vol] 0.77 mg/dL 0.55-1.02 [facility] Comment on above: The validity of the calculated GFR & GFRAA in patients over 70 years has not been determined. Clinical correlation is essential. Serum or plasma urea nitroge n measurement (mass/volume)Ordered By: Dr. Marshall on 03-17-2022 Urea nitrogen [Mass/Vol] 17 mg/dL 7-18 [facility] Thin prep Papanicolaou smear with manual screeningOrdered By: Dr. Marshall on 03-17-2022 Thin prep Papanicolaou smear with manual screening 6 5-15 [facility] COVID-19 virus antigen assay Ordered By: Dr. Marshall on 02-18-2022 SARS-CoV-2 (COVID-19) Ag IA.rapid Ql (Resp) [facility] INR in Blood by Coagulation assayon 02-18-2022 INR Coag (Bld) [Relative time] 1.2 {INR} [facility] Work Phone: Laboratory - Coagulationon 1 PT Coag (PPP) [Time] 14.5 s 11.7-14.9 [facility] Work Phone: Absolute lymphocyte counton 02-17-2022 Lymphocytes Auto (Unsp spec) [#/Vol] 1.74 10*3/uL 0.83-4.51 [facility] Work Phone: Basophil percentageon 2021 Basophils/100 WBC (Bld) 0.8 % 0-[address] [facility] Work Phone: [phone] Chloride [Moles/Vol] 96 mmol/L 98-107 [facility] Work Phone: [phone] Eosinophils/100 WBC (Bld) 5.2 % 0-5 [facility] Work Phone: [phone] Glucose [Mass/Vol] 104 mg/dL 74-[address] [facility] Work Phone: [phone] Comment on above: Fasting Glucose resu lt from 100 to 125 mg/dL suggests IMPAIRED HOMEOSTASIS per A.D.A. criteria. Neutrophils (Bld) [#/Vol] 5.1 10*3/uL 2.0-7.7 [facility] Work Phone: [phone] Neutrophils/100 WBC (Bld) 60.6 % 47-70 [facility] Work Phone: [phone] Potassium [Moles/Vol] 4.4 mmol/L 3.5-5.1 [facility] Work Phone: [phone] Sodium [Moles/Vol] 133 mmol/L 136-[address] [facility] Work Phone: [phone] WBC (Bld) [#/Vol] 8.4 10*3/uL 4.4-11.[address] [facility] Work Phone: [phone] Blood erythrocytes count (nu mber/volume)on 02-17-2022 RBC (Bld) [#/Vol] 3.75 10*6/uL 4.2-5.[address] [facility] Work Phone: [phone] Blood hemoglobin measurement (mass/volume)on 02-17-2022 Hemoglobin (Bld) [Mass/Vol] 11.1 g/dL 12.0-15.0 [facility] Work Phone: Blood lymphocytes/100 leukoc yteson 02-17-2022 Lymphocytes/100 WBC (Bld) 20.7 % 19-41 [facility] Work Phone: Blood monocytes/100 leukocyt eson 02-17-2022 Monocytes/100 WBC (Bld) 11.0 % 0-[address] [facility] Work Phone: Blood platelet mean volumeon 02-17-2022 Platelet mean volume (Bld) [Entitic vol] 9.3 fL 6.2-12.0 [facility] Work Phone: Determination of erythrocyte mean corpuscular volume (MCV)on 02-17-2022 MCV (RBC) [Entitic vol] 93.9 fL 81-[address] [facility] Work Phone: Hematocrit Auto (Bld) [Volum e fraction]on 02-17-2022 Hematocrit (Bld) [Volume fraction] 35.2 % 37-47 [facility] Work Phone: Laboratory - Chemistry and C hemistry - challengeon 02-17-2022 CO2 [Moles/Vol] 31.0 mmol/L 21.0-32.0 [facility] Work Phone: Urea nitrogen/Creatinine [Mass ratio] 15.0 mg/mg 10-20 [facility] Work Phone: Laboratory - Hematology and Cell countson 02-17-2022 Erythrocyte distribution width (RBC) [Entitic vol] 46.3 fL 35.1-43.9 [facility] Work Phone: Erythrocyte distribution width (RBC) [Ratio] 13.5 % 11.6-14.6 [facility] Work Phone: Immature granulocytes/100 WBC (Bld) 1.700 % 0.0-0.9 [facility] Work Phone: Comment on above: IG% - Immature Granu locytes (promyelocytes, myelocytes and metamyelocytes) > 1% indicates that a LEFT SHIFT is Present. MCH (RBC) [Entitic mass] 29.6 pg 27.0-32.0 [facility] Work Phone: Nucleated RBC/100 WBC (Bld) [Ratio] 0 % 0-5 [facility] Work Phone: MCHC Auto (RBC) [Mass/Vol]on 02-17-2022 MCHC (RBC) [Mass/Vol] 31.5 g/dL 32-36 [facility] Work Phone: No Panel Informationon 02-17 Estimated Creatinine Clearance Calc 38.80 ml/min [facility] Work Phone: Estimated GFR (MDRD) Amer 88 mL/min >60 [facility] Work Phone: Comment on above: GFR Calc Estimated GFR (MDRD) Non-Af Amer 72 mL/min >60 [facility] Work Phone: Comment on above: Non- GFR Calc Platelets bldon 02-17-2022 Platelets (Bld) [#/Vol] 322 10*3/uL 150-450 [facility] Work Phone: Serum or plasma calcium manuel urement (mass/volume)on 02-17-2022 Calcium [Mass/Vol] 8.9 mg/dL 8.5-10.[address] [facility] Work Phone: Serum or plasma creatinine m easurement (mass/volume)on 02-17-2022 Creatinine [Mass/Vol] 0.80 mg/dL 0.55-1.02 [facility] Work Phone: Comment on above: The validity of the calculated GFR & GFRAA in patients over 70 years has not been determined. Clinical correlation is essential. Serum or plasma urea nitroge n measurement (mass/volume)on 02-17-2022 Urea nitrogen [Mass/Vol] 12 mg/dL 7-18 [facility] Work Phone: Thin prep Papanicolaou smear with manual screeningon 02-17-2022 Thin prep Papanicolaou smear with manual screening 6 5-15 [facility] Work Phone: Bacteria identified Cx Nom ( U)Ordered By: Dr. Marshall on 02-15-2022 Culture, urine Aerococcus viridans. [facility] Culture, urine Escherichia coli [facility] INR in Blood by Coagulation assayOrdered By: Dr. Marshall on 02-14-2022 INR Coag (Bld) [Relative time] 1.1 {INR} [facility] Laboratory - Coagulationon 1 PT Coag (PPP) [Time] 13.6 s 11.7-14.9 [facility] Work Phone: No Panel InformationOrdered By: Dr. Marshall on 02-14-2022 13.6 SECONDS 11.7-14.9 [facility] Basophil percentageOrdered B y: Dr. Marshall on 02-13-2022 Basophil percentage 5-10 SEEN /hpf 0-[address] [facility] Bilirubin Test strip Ql (U)O rdered By: Dr. Marshall on 02-13-2022 Bilirubin Ql (U) Negative Negative [facility] Ketones Test strip Ql (U)Ord ered By: Dr. Marshall on 02-13-2022 Ketones Ql (U) Negative Negative [facility] Mucus LM Ql (Urine sed)Order ed By: Dr. Marshall on 02-13-2022 Mucus Ql (Urine sed) 0 SEEN /hpf [facility] Nitrite Test strip Ql (U)Ord ered By: Dr. Marshall on 02-13-2022 Nitrite Ql (U) Negative Negative [facility] Protein Test strip Ql (U)Ord ered By: Dr. Marshall on 02-13-2022 Protein Ql (U) Negative Negative [facility] Squamous epithelial cells de tection in urine sediment by light microscopyOrdered By: Dr. Marshall on 02-13-2022 Epithelial cells.squamous LM Ql (Urine sed) 0 SEEN /hpf 5-10 [facility] Urine blood detectionOrdered By: Dr. Marshall on 02-13-2022 RBC Ql (U) 10 /ul Negative [facility] RBC Ql (U) 0 SEEN /hpf 0-5 [facility] Urine clarityOrdered By: Dr. Marshall on 02-13-2022 Clarity (U) Clear Clear [facility] Urine color determinationOrd ered By: Dr. Marshall on 02-13-2022 Color (U) Yellow Yellow [facility] Urine glucose detectionOrder ed By: Dr. Marshall on 02-13-2022 Glucose Ql (U) Normal mg/dl Normal [facility] Urine leukocyte esterase det ection by dipstickOrdered By: Dr. Marshall on 02-13-2022 Leukocyte esterase Test strip Ql (U) 25 /ul Negative [facility] Urine pHOrdered By: Dr. Marshall on 02-13-2022 pH (U) 7.0 [pH] 5.0 - 8.0 [facility] Urine sediment bacteria coun t by microscopy (number/high power field)Ordered By: Dr. Marshall on 02-13-2022 Bacteria LM.HPF (Urine sed) [#/Area] 2 /[HPF] None Seen [facility] Urine specific gravity measu rementOrdered By: Dr. Marshall on 02-13-2022 Specific gravity (U) [Rel density] 1.010 1.002-1.030 [facility] Urobilinogen Auto test strip Ql (U)Ordered By: Dr. Marshall on 02-13-2022 Urobilinogen Ql (U) Normal mg/dl Normal [facility] Absolute lymphocyte countOrd ered By: Dr. Marshall on 02-12-2022 Lymphocytes Auto (Unsp spec) [#/Vol] 2.02 10*3/uL 0.83-4.51 [facility] Basophil percentageOrdered B y: Dr. Marshall on 02-12-2022 Basophil percentage 91 mg/dL 74-[address] [facility] Basophil percentage 133 mmol/L 136-[address] [facility] Basophil percentage 4.7 mmol/L 3.5-5.[address] [facility] Basophil percentage 96 mmol/L 98-[address] [facility] Basophils (Bld) [#/Vol] 8.0 10*3/uL 4.4-11.0 [facility] Basophils (Bld) [#/Vol] 4.3 10*3/uL 2.0-7.7 [facility] Basophils/100 WBC (Bld) 1.0 % 0-[address] [facility] Basophils/100 WBC (Bld) 54.0 % 47-[address] [facility] Basophils/100 WBC (Bld) 6.8 % 0-[address] [facility] Basophil percentageon 2021 Chloride [Moles/Vol] 96 mmol/L 98-107 [facility] Work Phone: Eosinophils/100 WBC (Bld) 6.8 % 0-5 [facility] Work Phone: Glucose [Mass/Vol] 91 mg/dL 74-[address] [facility] Work Phone: Neutrophils (Bld) [#/Vol] 4.3 10*3/uL 2.0-7.7 [facility] Work Phone: Neutrophils/100 WBC (Bld) 54.0 % 47-70 [facility] Work Phone: [phone] Potassium [Moles/Vol] 4.7 mmol/L 3.5-5.1 [facility] Work Phone: [phone] Sodium [Moles/Vol] 133 mmol/L 136-[address] [facility] Work Phone: [phone] WBC (Bld) [#/Vol] 8.0 10*3/uL 4.4-11.[address] [facility] Work Phone: [phone] Blood erythrocytes count (nu mber/volume)Ordered By: Dr. Marshall on 02-12-2022 RBC (Bld) [#/Vol] 4.07 10*6/uL 4.2-5.[address] [facility] Blood hemoglobin measurement (mass/volume)Ordered By: Dr. Marshall on 02-12-2022 Hemoglobin (Bld) [Mass/Vol] 12.0 g/dL 12.0-15.0 [facility] Blood lymphocytes/100 leukoc ytesOrdered By: Dr. Marshall on 02-12-2022 Lymphocytes/100 WBC (Bld) 25.1 % 19-41 [facility] Blood monocytes/100 leukocyt esOrdered By: Dr. Marshall on 02-12-2022 Monocytes/100 WBC (Bld) 10.2 % 0-10 [facility] Blood platelet mean volumeOr dered By: Dr. Marshall on 02-12-2022 Platelet mean volume (Bld) [Entitic vol] 9.2 fL 6.2-12.0 [facility] Determination of erythrocyte mean corpuscular volume (MCV)Ordered By: Dr. Marshall on 02-12-2022 MCV (RBC) [Entitic vol] 93.9 fL 81-[address] [facility] Hematocrit Auto (Bld) [Volum e fraction]Ordered By: Dr. Marshall on 02-12-2022 Hematocrit (Bld) [Volume fraction] 38.2 % 37-47 [facility] Laboratory - Chemistry and C hemistry - challengeon 02-12-2022 CO2 [Moles/Vol] 33.0 mmol/L 21.0-32.0 [facility] Work Phone: Urea nitrogen/Creatinine [Mass ratio] 29.8 mg/mg 10-20 [facility] Work Phone: Laboratory - Hematology and Cell countson 02-12-2022 Erythrocyte distribution width (RBC) [Entitic vol] 47.6 fL 35.1-43.9 [facility] Work Phone: Erythrocyte distribution width (RBC) [Ratio] 13.7 % 11.6-14.6 [facility] Work Phone: Immature granulocytes/100 WBC (Bld) 2.900 % 0.0-0.9 [facility] Work Phone: Comment on above: IG% - Immature Granu locytes (promyelocytes, myelocytes and metamyelocytes) > 1% indicates that a LEFT SHIFT is Present. MCH (RBC) [Entitic mass] 29.5 pg 27.0-32.0 [facility] Work Phone: Nucleated RBC/100 WBC (Bld) [Ratio] 0 % 0-5 [facility] Work Phone: MCHC Auto (RBC) [Mass/Vol]Or dered By: Dr. Marshall on 02-12-2022 MCHC (RBC) [Mass/Vol] 31.4 g/dL 32-36 [facility] No Panel Informationon 02-12 Estimated Creatinine Clearance Calc 36.95 ml/min [facility] Work Phone: Estimated GFR (MDRD) Amer 83 mL/min >60 [facility] Work Phone: Comment on above: GFR Calc Estimated GFR (MDRD) Non-Af Amer 68 mL/min >60 [facility] Work Phone: Comment on above: Non- GFR Calc No Panel InformationOrdered By: Dr. Marshall on 02-12-2022 29.5 pg 27.0-32.0 [facility] 13.7 % 11.6-14.6 [facility] 47.6 fl 35.1-43.9 [facility] 2.900 % 0.0-0.9 [facility] 0 % 0-5 [facility] 68 mL/min >60 [facility] 83 mL/min >60 [facility] 36.95 ml/min [facility] 29.8 RATIO 10-20 [facility] 33.0 mmol/L 21.0-32.0 [facility] Platelets bldOrdered By: Dr. Marshall on 02-12-2022 Platelets (Bld) [#/Vol] 382 10*3/uL 150-450 [facility] Serum or plasma calcium manuel urement (mass/volume)Ordered By: Dr. Marshall on 02-12-2022 Calcium [Mass/Vol] 9.5 mg/dL 8.5-10.[address] [facility] Serum or plasma creatinine m easurement (mass/volume)Ordered By: Dr. Marshall on 02-12-2022 Creatinine [Mass/Vol] 0.84 mg/dL 0.55-1.02 [facility] Comment on above: The validity of the calculated GFR & GFRAA in patients over 70 years has not been determined. Clinical correlation is essential. Serum or plasma urea nitroge n measurement (mass/volume)Ordered By: Dr. Marshall on 02-12-2022 Urea nitrogen [Mass/Vol] 25 mg/dL 7-18 [facility] Thin prep Papanicolaou smear with manual screeningOrdered By: Dr. Marshall on 02-12-2022 Thin prep Papanicolaou smear with manual screening 4 5-15 [facility] Absolute lymphocyte countOrd ered By: Dr. Evans on 02-11-2022 Lymphocytes Auto (Unsp spec) [#/Vol] 1.85 10*3/uL 0.83-4.51 [facility] Basophil percentageOrdered B y: Dr. Evans on 02-11-2022 Basophil percentage 136 mg/dL 74-[address] [facility] Basophil percentage 136 mmol/L 136-[address] [facility] Basophil percentage 4.0 mmol/L 3.5-5.[address] [facility] Basophil percentage 96 mmol/L 98-[address] [facility] Basophils (Bld) [#/Vol] 8.9 10*3/uL 4.4-11.0 [facility] Basophils (Bld) [#/Vol] 5.7 10*3/uL 2.0-7.7 [facility] Basophils/100 WBC (Bld) 0.8 % 0-[address] [facility] Basophils/100 WBC (Bld) 64.1 % 47-[address] [facility] Basophils/100 WBC (Bld) 5.4 % 0-[address] [facility] Basophil percentageon 2021 Chloride [Moles/Vol] 96 mmol/L 98-107 [facility] Work Phone: Eosinophils/100 WBC (Bld) 5.4 % 0-5 [facility] Work Phone: Glucose [Mass/Vol] 136 mg/dL 74-[address] [facility] Work Phone: Comment on above: Fasting Glucose resu lt greater than or equal to 126 mg/dL suggests DIABETES MELLITUS per A.D.A. criteria. Neutrophils (Bld) [#/Vol] 5.7 10*3/uL 2.0-7.7 [facility] Work Phone: Neutrophils/100 WBC (Bld) 64.1 % 47-70 [facility] Work Phone: Potassium [Moles/Vol] 4.0 mmol/L 3.5-5.1 [facility] Work Phone: Sodium [Moles/Vol] 136 mmol/L 136-[address] [facility] Work Phone: WBC (Bld) [#/Vol] 8.9 10*3/uL 4.4-11.[address] [facility] Work Phone: Blood erythrocytes count (nu mber/volume)Ordered By: Dr. Evans on 02-11-2022 RBC (Bld) [#/Vol] 4.48 10*6/uL 4.2-5.[address] [facility] Blood hemoglobin measurement (mass/volume)Ordered By: Dr. Evans on 02-11-2022 Hemoglobin (Bld) [Mass/Vol] 13.2 g/dL 12.0-15.0 [facility] Blood lymphocytes/100 leukoc ytesOrdered By: Dr. Evans on 02-11-2022 Lymphocytes/100 WBC (Bld) 20.9 % 19-41 [facility] Blood monocytes/100 leukocyt esOrdered By: Dr. Evans on 02-11-2022 Monocytes/100 WBC (Bld) 6.8 % 0-[address] [facility] Blood platelet mean volumeOr dered By: Dr. Evans on 02-11-2022 Platelet mean volume (Bld) [Entitic vol] 9.4 fL 6.2-12.0 [facility] COVID-19 virus antigen assay Ordered By: Dr. Evans on 02-11-2022 SARS-CoV-2 (COVID-19) Ag IA.rapid Ql (Resp) [facility] Determination of erythrocyte mean corpuscular volume (MCV)Ordered By: Dr. Evans on 02-11-2022 MCV (RBC) [Entitic vol] 95.3 fL 81-[address] [facility] Hematocrit Auto (Bld) [Volum e fraction]Ordered By: Dr. Evans on 02-11-2022 Hematocrit (Bld) [Volume fraction] 42.7 % 37-47 [facility] INR in Blood by Coagulation assayOrdered By: Dr. Evans on 02-11-2022 INR Coag (Bld) [Relative time] 1.2 {INR} [facility] Laboratory - Chemistry and C hemistry - challengeon 02-11-2022 CO2 [Moles/Vol] 32.0 mmol/L 21.0-32.0 [facility] Work Phone: Magnesium [Mass/Vol] 2.3 mg/dL 1.6-2.6 [facility] Work Phone: Urea nitrogen/Creatinine [Mass ratio] 28.0 mg/mg 10-20 [facility] Work Phone: Laboratory - Coagulationon 1 PT Coag (PPP) [Time] 14.6 s 11.7-14.9 [facility] Work Phone: Laboratory - Hematology and Cell countson 02-11-2022 Erythrocyte distribution width (RBC) [Entitic vol] 48.5 fL 35.1-43.9 [facility] Work Phone: Erythrocyte distribution width (RBC) [Ratio] 13.7 % 11.6-14.6 [facility] Work Phone: Immature granulocytes/100 WBC (Bld) 2.000 % 0.0-0.9 [facility] Work Phone: Comment on above: IG% - Immature Granu locytes (promyelocytes, myelocytes and metamyelocytes) > 1% indicates that a LEFT SHIFT is Present. MCH (RBC) [Entitic mass] 29.5 pg 27.0-32.0 [facility] Work Phone: Nucleated RBC/100 WBC (Bld) [Ratio] 0 % 0-5 [facility] Work Phone: MCHC Auto (RBC) [Mass/Vol]Or dered By: Dr. Evans on 02-11-2022 MCHC (RBC) [Mass/Vol] 30.9 g/dL 32-36 [facility] No Panel Informationon 02-11 Estimated Creatinine Clearance Calc 33.37 ml/min [facility] Work Phone: Estimated GFR (MDRD) Amer 74 mL/min >60 [facility] Work Phone: Comment on above: GFR Calc Estimated GFR (MDRD) Non-Af Amer 61 mL/min >60 [facility] Work Phone: Comment on above: Non- GFR Calc No Panel InformationOrdered By: Dr. Evans on 02-11-2022 29.5 pg 27.0-32.0 [facility] 13.7 % 11.6-14.6 [facility] 48.5 fl 35.1-43.9 [facility] 2.000 % 0.0-0.9 [facility] 0 % 0-5 [facility] 14.6 SECONDS 11.7-14.9 [facility] 61 mL/min >60 [facility] 74 mL/min >60 [facility] 33.37 ml/min [facility] 28.0 RATIO 10-20 [facility] 2.3 mg/dL 1.6-2.6 [facility] 32.0 mmol/L 21.0-32.0 [facility] Platelets bldOrdered By: Dr. Evans on 02-11-2022 Platelets (Bld) [#/Vol] 418 10*3/uL 150-450 [facility] Serum or plasma calcium manuel urement (mass/volume)Ordered By: Dr. Evans on 02-11-2022 Calcium [Mass/Vol] 9.9 mg/dL 8.5-10.[address] [facility] Serum or plasma creatinine m easurement (mass/volume)Ordered By: Dr. Evans on 02-11-2022 Creatinine [Mass/Vol] 0.93 mg/dL 0.55-1.02 [facility] Comment on above: The validity of the calculated GFR & GFRAA in patients over 70 years has not been determined. Clinical correlation is essential. Serum or plasma urea nitroge n measurement (mass/volume)Ordered By: Dr. Evans on 02-11-2022 Urea nitrogen [Mass/Vol] 26 mg/dL 7-18 [facility] Thin prep Papanicolaou smear with manual screeningOrdered By: Dr. Evans on 02-11-2022 Thin prep Papanicolaou smear with manual screening 8 5-15 [facility] Absolute lymphocyte counton 02-09-2022 Lymphocytes Auto (Unsp spec) [#/Vol] 1.65 10*3/uL 0.83-4.51 [facility] Work Phone: Basophil percentageOrdered B y: Dr. Hendrickson on 02-09-2022 Basophil percentage 0 SEEN /hpf 0-5 [facility] Basophil percentage 7.1 g/dL 6.4-8.[address] [facility] Basophil percentage 0.30 mg/dL 0.20-1.[address] [facility] Basophil percentageon 2021 Basophils/100 WBC (Bld) 0.6 % 0-[address] [facility] Work Phone: Bilirubin [Mass/Vol] 0.30 mg/dL 0.20-1.00 [facility] Work Phone: Comment on above: For patients on eltr ombopag therapy, use of Dimension [place] TBIL is not recommended. Chloride [Moles/Vol] 97 mmol/L 98-107 [facility] Work Phone: Eosinophils/100 WBC (Bld) 3.1 % 0-5 [facility] Work Phone: Glucose [Mass/Vol] 111 mg/dL 74-[address] [facility] Work Phone: Comment on above: Fasting Glucose resu lt from 100 to 125 mg/dL suggests IMPAIRED HOMEOSTASIS per A.D.A. criteria. Neutrophils (Bld) [#/Vol] 5.8 10*3/uL 2.0-7.7 [facility] Work Phone: [phone] Neutrophils/100 WBC (Bld) 63.6 % 47-70 [facility] Work Phone: [phone] Potassium [Moles/Vol] 4.8 mmol/L 3.5-5.1 [facility] Work Phone: Protein [Mass/Vol] 7.1 g/dL 6.4-8.[address] [facility] Work Phone: Sodium [Moles/Vol] 136 mmol/L 136-145 [facility]: WBC (Bld) [#/Vol] 9.1 10*3/uL 4.4-11.0 [facility] Work Phone: Bilirubin Test strip Ql (U)O rdered By: Dr. Hendrickson on 02-09-2022 Bilirubin Ql (U) Negative Negative [facility] Blood erythrocytes count (nu mber/volume)on 02-09-2022 RBC (Bld) [#/Vol] 4.14 10*6/uL 4.2-5.4 [facility]: Blood hemoglobin measurement (mass/volume)on 02-09-2022 Hemoglobin (Bld) [Mass/Vol] 12.3 g/dL 12.0-15.0 [facility] Work Phone: Blood lymphocytes/100 leukoc yteson 02-09-2022 Lymphocytes/100 WBC (Bld) 18.2 % 19-41 [facility] Work Phone: Blood monocytes/100 leukocyt eson 02-09-2022 Monocytes/100 WBC (Bld) 12.6 % 0-[address] [facility] Work Phone: Blood platelet mean volumeon 02-09-2022 Platelet mean volume (Bld) [Entitic vol] 9.2 fL 6.2-12.0 [facility] Work Phone: Determination of erythrocyte mean corpuscular volume (MCV)on 02-09-2022 MCV (RBC) [Entitic vol] 95.7 fL 81-[address] [facility] Work Phone: Hematocrit Auto (Bld) [Volum e fraction]on 02-09-2022 Hematocrit (Bld) [Volume fraction] 39.6 % 37-47 [facility] Work Phone: Ketones Test strip Ql (U)Ord ered By: Dr. Hendrickson on 02-09-2022 Ketones Ql (U) Negative Negative [facility] Laboratory - Chemistry and C hemistry - challengeon 02-09-2022 ALP [Catalytic activity/Vol] 62 U/L 45-117 [facility] Work Phone: [phone] ALT [Catalytic activity/Vol] 18 U/L 13-56 [facility] Work Phone: [phone] CO2 [Moles/Vol] 33.0 mmol/L 21.0-32.0 [facility] Work Phone: [phone] Globulin (S) [Mass/Vol] 4.0 g/dL 2.2-4.[address] [facility] Work Phone: [phone] Urea nitrogen/Creatinine [Mass ratio] 28.6 mg/mg 10-20 [facility] Work Phone: [phone] Laboratory - Hematology and Cell countson 02-09-2022 Erythrocyte distribution width (RBC) [Entitic vol] 49.4 fL 35.1-43.9 [facility] Work Phone: [phone] Erythrocyte distribution width (RBC) [Ratio] 14.1 % 11.6-14.6 [facility] Work Phone: [phone] Immature granulocytes/100 WBC (Bld) 1.900 % 0.0-0.9 [facility] Work Phone: [phone] Comment on above: IG% - Immature Granu locytes (promyelocytes, myelocytes and metamyelocytes) > 1% indicates that a LEFT SHIFT is Present. MCH (RBC) [Entitic mass] 29.7 pg 27.0-32.0 [facility] Work Phone: [phone] Nucleated RBC/100 WBC (Bld) [Ratio] 0 % 0-5 [facility] Work Phone: [phone] MCHC Auto (RBC) [Mass/Vol]on 02-09-2022 MCHC (RBC) [Mass/Vol] 31.1 g/dL 32-36 [facility] Work Phone: Mucus LM Ql (Urine sed)Order ed By: Dr. Hendrickson on 02-09-2022 Mucus Ql (Urine sed) 0 SEEN /hpf [facility] Nitrite Test strip Ql (U)Ord ered By: Dr. Hendrickson on 02-09-2022 Nitrite Ql (U) Negative Negative [facility] No Panel Informationon 02-09 Estimated Creatinine Clearance Calc 29.56 ml/min [facility] Work Phone: Estimated GFR (MDRD) Amer 64 mL/min >60 [facility] Work Phone: Comment on above: GFR Calc Estimated GFR (MDRD) Non-Af Amer 53 mL/min >60 [facility] Work Phone: Comment on above: Non- GFR Calc No Panel InformationOrdered By: Dr. Hendrickson on 02-09-2022 4.0 g/dL 2.2-4.2 [facility] 62 U/L 45-117 [facility] 18 U/L 13-56 [facility] Platelets bldon 02-09-2022 Platelets (Bld) [#/Vol] 385 10*3/uL 150-450 [facility] Work Phone: Protein Test strip Ql (U)Ord ered By: Dr. Hendrickson on 02-09-2022 Protein Ql (U) Negative Negative [facility] Serum or plasma albumin manuel urement (mass/volume)Ordered By: Dr. Hendrickson on 02-09-2022 Albumin [Mass/Vol] 3.1 g/dL 3.2-5.[address] [facility] Serum or plasma albumin/glob ulin mass ratioOrdered By: Dr. Hendrickson on 02-09-2022 Albumin/Globulin [Mass ratio] 0.8 {ratio} 0.9-2.4 [facility] Serum or plasma calcium manuel urement (mass/volume)on 02-09-2022 Calcium [Mass/Vol] 9.1 mg/dL 8.5-10.[address] [facility] Work Phone: Serum or plasma creatinine m easurement (mass/volume)on 02-09-2022 Creatinine [Mass/Vol] 1.05 mg/dL 0.55-1.02 [facility] Work Phone: Comment on above: The validity of the calculated GFR & GFRAA in patients over 70 years has not been determined. Clinical correlation is essential. Serum or plasma urea nitroge n measurement (mass/volume)on 02-09-2022 Urea nitrogen [Mass/Vol] 30 mg/dL 7-18 [facility] Work Phone: Squamous epithelial cells de tection in urine sediment by light microscopyOrdered By: Dr. Hendrickson on 02-09-2022 Epithelial cells.squamous LM Ql (Urine sed) 0-5 SEEN /hpf 5-10 [facility] Thin prep Papanicolaou smear with manual screeningOrdered By: Dr. Hendrickson on 02-09-2022 Thin prep Papanicolaou smear with manual screening 16 U/L 15-37 [facility] Thin prep Papanicolaou smear with manual screeningon 02-09-2022 Thin prep Papanicolaou smear with manual screening 6 5-15 [facility] Work Phone: Urine blood detectionOrdered By: Dr. Hendrickson on 02-09-2022 RBC Ql (U) Negative Negative [facility] RBC Ql (U) 0 SEEN /hpf 0-5 [facility] Urine clarityOrdered By: Dr. Hendrickson on 02-09-2022 Clarity (U) Clear Clear [facility] Urine color determinationOrd ered By: Dr. Hendrickson on 02-09-2022 Color (U) Straw Yellow [facility] Urine glucose detectionOrder ed By: Dr. Hendrickson on 02-09-2022 Glucose Ql (U) Normal mg/dl Normal [facility] Urine leukocyte esterase det ection by dipstickOrdered By: Dr. Hendrickson on 02-09-2022 Leukocyte esterase Test strip Ql (U) Negative Negative [facility] Urine pHOrdered By: Dr. Heavenly freeman on 02-09-2022 pH (U) 7.0 [pH] 5.0 - 8.0 [facility] Urine sediment bacteria coun t by microscopy (number/high power field)Ordered By: Dr. Hendrickson on 02-09-2022 Bacteria LM.HPF (Urine sed) [#/Area] RARE /hpf None Seen [facility] Urine specific gravity measu rementOrdered By: Dr. Hendrickson on 02-09-2022 Specific gravity (U) [Rel density] 1.005 1.002-1.030 [facility] Urobilinogen Auto test strip Ql (U)Ordered By: Dr. Hendrickson on 02-09-2022 Urobilinogen Ql (U) Normal mg/dl Normal [facility] Serum or plasma cortisol fran surement (mass/volume)on 12-20-2021 Cortisol [Mass/Vol] 6.90 ug/dL 3.44-22.[address] [facility] Work Phone: Comment on above: Adult (AM) 5.27 - 22 .45 ug/dL Adult (PM) 3.44 - 16.76 ug/dLPlease note revised CORTISOL reference range effective 2019. Absolute lymphocyte counton 12-18-2021 Lymphocytes Auto (Unsp spec) [#/Vol] 2.24 10*3/uL 0.83-4.51 [facility] Work Phone: Basophil percentageon 2021 Basophils/100 WBC (Bld) 0.7 % 0-[address] [facility] Work Phone: Bilirubin [Mass/Vol] 0.40 mg/dL 0.20-1.00 [facility] Work Phone: Comment on above: For patients on eltr ombopag therapy, use of Dimension [place] TBIL is not recommended. Chloride [Moles/Vol] 102 mmol/L 98-107 [facility] Work Phone: Eosinophils/100 WBC (Bld) 1.7 % 0-5 [facility] Work Phone: Glucose [Mass/Vol] 104 mg/dL 74-[address] [facility] Work Phone: Comment on above: Fasting Glucose resu lt from 100 to 125 mg/dL suggests IMPAIRED HOMEOSTASIS per A.D.A. criteria. Neutrophils (Bld) [#/Vol] 6.7 10*3/uL 2.0-7.7 [facility] Work Phone: Neutrophils/100 WBC (Bld) 66.9 % 47-70 [facility] Work Phone: Potassium [Moles/Vol] 4.4 mmol/L 3.5-5.1 [facility] Work Phone: Protein [Mass/Vol] 7.6 g/dL 6.4-8.2 [facility]: Sodium [Moles/Vol] 137 mmol/L 136-145 [facility] Work Phone: WBC (Bld) [#/Vol] 10.1 10*3/uL 4.4-11.0 [facility]: Blood erythrocytes count (nu mber/volume)on 12-18-2021 RBC (Bld) [#/Vol] 4.04 10*6/uL 4.2-5.4 [facility] Work Phone: Blood hemoglobin measurement (mass/volume)on 12-18-2021 Hemoglobin (Bld) [Mass/Vol] 12.1 g/dL 12.0-15.0 [facility] Work Phone: Blood lymphocytes/100 leukoc yteson 12-18-2021 Lymphocytes/100 WBC (Bld) 22.3 % 19-41 [facility] Work Phone: Blood monocytes/100 leukocyt eson 12-18-2021 Monocytes/100 WBC (Bld) 8.0 % 0-[address] [facility] Work Phone: Blood platelet mean volumeon 12-18-2021 Platelet mean volume (Bld) [Entitic vol] 9.7 fL 6.2-12.0 [facility] Work Phone: Determination of erythrocyte mean corpuscular volume (MCV)on 12-18-2021 MCV (RBC) [Entitic vol] 91.3 fL 81-[address] [facility] Work Phone: Erythrocyte sedimentation ra pieter 12-18-2021 ESR (Bld) [Velocity] 38 mm/h 0-30 [facility]: Hematocrit Auto (Bld) [Volum e fraction]on 12-18-2021 Hematocrit (Bld) [Volume fraction] 36.9 % 37-47 [facility] Work Phone: Iron measurement (mass/mass) on 12-18-2021 Iron (Unsp spec) [Mass/Mass] 97 ug/dL 50-170 [facility] Work Phone: Laboratory - Chemistry and C hemistry - challengeon 12-18-2021 ALP [Catalytic activity/Vol] 56 U/L 45-117 [facility] Work Phone: ALT [Catalytic activity/Vol] 17 U/L 13-56 [facility] Work Phone: [phone] CO2 [Moles/Vol] 30.0 mmol/L 21.0-32.0 [facility] Work Phone: Cobalamin (Vitamin B12) [Mass/Vol] 374 pg/mL 211-911 [facility] Work Phone: [phone] Globulin (S) [Mass/Vol] 4.2 g/dL 2.2-4.[address] [facility] Work Phone: Urea nitrogen/Creatinine [Mass ratio] 25.0 mg/mg 10-20 [facility] Work Phone: Laboratory - Hematology and Cell countson 12-18-2021 Erythrocyte distribution width (RBC) [Entitic vol] 46.5 fL 35.1-43.9 [facility] Work Phone: [phone] Erythrocyte distribution width (RBC) [Ratio] 13.6 % 11.6-14.6 [facility] Work Phone: Immature granulocytes/100 WBC (Bld) 0.400 % 0.0-0.9 [facility] Work Phone: [phone] Comment on above: IG% - Immature Granu locytes (promyelocytes, myelocytes and metamyelocytes) > 1% indicates that a LEFT SHIFT is Present. MCH (RBC) [Entitic mass] 30.0 pg 27.0-32.0 [facility] Work Phone: Nucleated RBC/100 WBC (Bld) [Ratio] 0 % 0-5 [facility] Work Phone: MCHC Auto (RBC) [Mass/Vol]on 12-18-2021 MCHC (RBC) [Mass/Vol] 32.8 g/dL 32-36 [facility] Work Phone: No Panel Informationon 12-18 Estimated GFR (MDRD) Amer 57 mL/min >60 [facility] Work Phone: Comment on above: GFR Calc Estimated GFR (MDRD) Non-Af Amer 47 mL/min >60 [facility] Work Phone: Comment on above: Non- GFR Calc Thyroid Stimulating Hormone (TSH) 0.98 uIU/mL 0.358-3.74 [facility] Work Phone: Vitamin D 25-Hydroxy 76.0 ng/mL [facility] Work Phone: Comment on above: Vitamin D 25(OH) Sta tus Range Deficiency <20 ng/mL (50nmol/L) Insufficiency 20 - 30 ng/mL (50 - 75 nmol/L) Sufficiency 30 - 100 ng/mL (75 - 250 nmol/L) Toxicity >100 ng/mL (>250 nmol/L) Platelets bldon 12-18-2021 Platelets (Bld) [#/Vol] 333 10*3/uL 150-450 [facility] Work Phone: Serum or plasma albumin manuel urement (mass/volume)on 12-18-2021 Albumin [Mass/Vol] 3.4 g/dL 3.2-5.[address] [facility] Work Phone: Serum or plasma albumin/glob ulin mass ratioon 12-18-2021 Albumin/Globulin [Mass ratio] 0.8 {ratio} 0.9-2.4 [facility] Work Phone: Serum or plasma calcium manuel urement (mass/volume)on 12-18-2021 Calcium [Mass/Vol] 9.5 mg/dL 8.5-10.[address] [facility] Work Phone: Serum or plasma cortisol fran surement (mass/volume)on 12-18-2021 Cortisol [Mass/Vol] 2.80 ug/dL 3.44-22.[address] [facility] Work Phone: Comment on above: Adult (AM) 5.27 - 22 .45 ug/dL Adult (PM) 3.44 - 16.76 ug/dLPlease note revised CORTISOL reference range effective 2019. Serum or plasma creatinine m easurement (mass/volume)on 12-18-2021 Creatinine [Mass/Vol] 1.16 mg/dL 0.55-1.02 [facility] Work Phone: Comment on above: The validity of the calculated GFR & GFRAA in patients over 70 years has not been determined. Clinical correlation is essential. Serum or plasma ferritin fran surement (mass/volume)on 12-18-2021 Ferritin [Mass/Vol] 56 ng/mL [facility] Work Phone: Serum or plasma urea nitroge n measurement (mass/volume)on 12-18-2021 Urea nitrogen [Mass/Vol] 29 mg/dL 7-18 [facility] Work Phone: Thin prep Papanicolaou smear with manual screeningon 12-18-2021 Thin prep Papanicolaou smear with manual screening 19 U/L 15-37 [facility] Work Phone: Thin prep Papanicolaou smear with manual screening 5 5-15 [facility] Work Phone: Serum or plasma ferritin fran surement (mass/volume)on 09-27-2021 Ferritin [Mass/Vol] 39 ng/mL [facility] Work Phone: Absolute lymphocyte counton 07-27-2021 Lymphocytes Auto (Unsp spec) [#/Vol] 1.59 10*3/uL 0.83-4.51 [facility] Work Phone: Basophil percentageon 2021 Basophils/100 WBC (Bld) 0.6 % 0-[address] [facility] Work Phone: [phone] Eosinophils/100 WBC (Bld) 3.6 % 0-5 [facility] Work Phone: Neutrophils (Bld) [#/Vol] 3.9 10*3/uL 2.0-7.7 [facility] Work Phone: Neutrophils/100 WBC (Bld) 60.7 % 47-70 [facility] Work Phone: [phone] WBC (Bld) [#/Vol] 6.4 10*3/uL 4.4-11.0 [facility] Work [facility]: Blood erythrocytes count (nu mber/volume)on 07-27-2021 RBC (Bld) [#/Vol] 3.84 10*6/uL 4.2-5.4 [facility] Work Phone: Blood hemoglobin measurement (mass/volume)on 07-27-2021 Hemoglobin (Bld) [Mass/Vol] 11.7 g/dL 12.0-15.0 [facility] Work Phone: Blood lymphocytes/100 leukoc yteson 07-27-2021 Lymphocytes/100 WBC (Bld) 24.8 % 19-41 [facility] Work Phone: Blood monocytes/100 leukocyt eson 07-27-2021 Monocytes/100 WBC (Bld) 9.7 % 0-[address] [facility] Work Phone: Blood platelet mean volumeon 07-27-2021 Platelet mean volume (Bld) [Entitic vol] 10.4 fL 6.2-12.0 [facility] Work Phone: Determination of erythrocyte mean corpuscular volume (MCV)on 07-27-2021 MCV (RBC) [Entitic vol] 92.7 fL 81-[address] [facility] Work Phone: Hematocrit Auto (Bld) [Volum e fraction]on 07-27-2021 Hematocrit (Bld) [Volume fraction] 35.6 % 37-47 [facility] Work Phone: Laboratory - Hematology and Cell countson 07-27-2021 Erythrocyte distribution width (RBC) [Entitic vol] 46.9 fL 35.1-43.9 [facility] Work Phone: Erythrocyte distribution width (RBC) [Ratio] 13.8 % 11.6-14.6 [facility] Work Phone: Immature granulocytes/100 WBC (Bld) 0.600 % 0.0-0.9 [facility] Work Phone: Comment on above: IG% - Immature Granu locytes (promyelocytes, myelocytes and metamyelocytes) > 1% indicates that a LEFT SHIFT is Present. MCH (RBC) [Entitic mass] 30.5 pg 27.0-32.0 [facility] Work Phone: Nucleated RBC/100 WBC (Bld) [Ratio] 0 % 0-5 [facility] Work Phone: MCHC Auto (RBC) [Mass/Vol]on 07-27-2021 MCHC (RBC) [Mass/Vol] 32.9 g/dL 32-36 [facility] Work Phone: Comment on above: Delta: 30.9 on 07/25 No Panel Informationon 07-27 Ionized Calcium 4.8 mg/dL 4.5-5.6 [facility] Work Phone: Comment on above: Performed at: [address] [id number] Director: Arjun Pisano PhD, Phone: [phone] Parathyroid Hormone (Intact) 109.8 pg/mL 18.4-80.1 [facility] Work Phone: Vitamin D 25-Hydroxy 69.9 ng/mL [facility] Work Phone: Comment on above: Vitamin D 25(OH) Sta tus Range Deficiency <20 ng/mL (50nmol/L) Insufficiency 20 - 30 ng/mL (50 - 75 nmol/L) Sufficiency 30 - 100 ng/mL (75 - 250 nmol/L) Toxicity >100 ng/mL (>250 nmol/L) Platelets bldon 07-27-2021 Platelets (Bld) [#/Vol] 280 10*3/uL 150-450 [facility] Work Phone: Serum or plasma C reactive p rotein measurement (mass/volume)on 07-27-2021 CRP [Mass/Vol] 36.30 mg/L 0.0-3.0 [facility] Work Phone: Comment on above: C-Reactive Protein ( CRP) provides useful information for thediagnosis, therapy and monitoring of inflammatory processesand associated diseases. For the evaluation of Relative Riskfor Cardiovascular Disease, a High Sensitivity CRP (HSCRP)should be ordered. Absolute lymphocyte counton 07-25-2021 Lymphocytes Auto (Unsp spec) [#/Vol] 1.76 10*3/uL 0.83-4.51 [facility] Work Phone: Basophil percentageon 2021 Basophils/100 WBC (Bld) 0.5 % 0-[address] [facility] Work Phone: [phone] Chloride [Moles/Vol] 106 mmol/L 98-107 [facility] Work Phone: Eosinophils/100 WBC (Bld) 2.9 % 0-5 [facility] Work Phone: Glucose [Mass/Vol] 92 mg/dL 74-[address] [facility] Work Phone: [phone] Neutrophils (Bld) [#/Vol] 3.3 10*3/uL 2.0-7.7 [facility] Work Phone: [phone] Neutrophils/100 WBC (Bld) 56.0 % 47-70 [facility] Work Phone: [phone] Potassium [Moles/Vol] 3.9 mmol/L 3.5-5.1 [facility] Work Phone: Sodium [Moles/Vol] 139 mmol/L 136-[facility] Work Phone: WBC (Bld) [#/Vol] 5.9 10*3/uL 4.4-11.0 [facility] Work Phone: Blood erythrocytes count (nu mber/volume)on 07-25-2021 RBC (Bld) [#/Vol] 3.30 10*6/uL 4.2-5.4 [facility] Work Phone: Blood hemoglobin measurement (mass/volume)on 07-25-2021 Hemoglobin (Bld) [Mass/Vol] 9.5 g/dL 12.0-15.0 [facility] Work Phone: Blood lymphocytes/100 leukoc yteson 07-25-2021 Lymphocytes/100 WBC (Bld) 29.9 % 19-41 [facility] Work Phone: Blood monocytes/100 leukocyt eson 07-25-2021 Monocytes/100 WBC (Bld) 10.5 % 0-[address] [facility] Work Phone: Blood platelet mean volumeon 07-25-2021 Platelet mean volume (Bld) [Entitic vol] 9.7 fL 6.2-12.0 [facility] Work Phone: Determination of erythrocyte mean corpuscular volume (MCV)on 07-25-2021 MCV (RBC) [Entitic vol] 93.0 fL 81-[address] [facility] Work Phone: Erythrocyte sedimentation ra pieter 07-25-2021 ESR (Bld) [Velocity] 12 mm/h 0-30 [facility] Work Phone: Hematocrit Auto (Bld) [Volum e fraction]on 07-25-2021 Hematocrit (Bld) [Volume fraction] 30.7 % 37-47 [facility] Work Phone: INR in Blood by Coagulation assayon 07-25-2021 INR Coag (Bld) [Relative time] 4.1 {INR} [facility] Work Phone: Comment on above: CRITICAL VALUE VERIF IED. CALLED TO David HERNANDEZ RN [id number]/ [id number].RESULTS READ BACK BY SAME. Laboratory - Chemistry and C hemistry - challengeon 07-25-2021 CO2 [Moles/Vol] 27.0 mmol/L 21.0-32.0 [facility] Work Phone: Urea nitrogen/Creatinine [Mass ratio] 23.7 mg/mg 10-20 [facility] Work Phone: Laboratory - Coagulationon 0 07-25-2021 PT Coag (PPP) [Time] 39.3 s 11.7-14.9 [facility] Work Phone: Laboratory - Hematology and Cell countson 07-25-2021 Erythrocyte distribution width (RBC) [Entitic vol] 47.7 fL 35.1-43.9 [facility] Work Phone: Erythrocyte distribution width (RBC) [Ratio] 14.1 % 11.6-14.6 [facility] Work Phone: Immature granulocytes/100 WBC (Bld) 0.200 % 0.0-0.9 [facility] Work Phone: Comment on above: IG% - Immature Granu locytes (promyelocytes, myelocytes and metamyelocytes) > 1% indicates that a LEFT SHIFT is Present. MCH (RBC) [Entitic mass] 28.8 pg 27.0-32.0 [facility] Work Phone: Nucleated RBC/100 WBC (Bld) [Ratio] 0 % 0-5 [facility] Work Phone: MCHC Auto (RBC) [Mass/Vol]on 07-25-2021 MCHC (RBC) [Mass/Vol] 30.9 g/dL 32-36 [facility] Work Phone: No Panel Informationon 07-25 Estimated Creatinine Clearance Calc 32.00 ml/min [facility] Work Phone: Estimated GFR (MDRD) Amer 70 mL/min >60 [facility] Work Phone: Comment on above: GFR Calc Estimated GFR (MDRD) Non-Af Amer 58 mL/min >60 [facility] Work Phone: Comment on above: Non- GFR Calc Platelets bldon 07-25-2021 Platelets (Bld) [#/Vol] 213 10*3/uL 150-450 [facility] Work Phone: Serum or plasma C reactive p rotein measurement (mass/volume)on 07-25-2021 CRP [Mass/Vol] 67.00 mg/L 0.0-3.0 [facility] Work Phone: Comment on above: C-Reactive Protein ( CRP) provides useful information for thediagnosis, therapy and monitoring of inflammatory processesand associated diseases. For the evaluation of Relative Riskfor Cardiovascular Disease, a High Sensitivity CRP (HSCRP)should be ordered. Serum or plasma calcium manuel urement (mass/volume)on 07-25-2021 Calcium [Mass/Vol] 7.6 mg/dL 8.5-10.[address] [facility] Work Phone: Serum or plasma creatinine m easurement (mass/volume)on 07-25-2021 Creatinine [Mass/Vol] 0.97 mg/dL 0.55-1.02 [facility] Work Phone: Comment on above: The validity of the calculated GFR & GFRAA in patients over 70 years has not been determined. Clinical correlation is essential. Serum or plasma urea nitroge n measurement (mass/volume)on 07-25-2021 Urea nitrogen [Mass/Vol] 23 mg/dL 7-18 [facility] Work Phone: Thin prep Papanicolaou smear with manual screeningon 07-25-2021 Thin prep Papanicolaou smear with manual screening 6 5-15 [facility] Work Phone: Activated partial thrombopla stin time (aPTT) in platelet poor plasma by coagulation aon 07-24-2021 aPTT Coag (PPP) [Time] 53.1 s 24.1-36.2 [facility] Work Phone: Basophil percentageon 2021 Bilirubin [Mass/Vol] 0.40 mg/dL 0.20-1.00 [facility] Work Phone: Comment on above: For patients on eltr ombopag therapy, use of Dimension [place] TBIL is not recommended. Lactate [Moles/Vol] 0.7 mmol/L 0.4-2.[address] [facility] Work Phone: Protein [Mass/Vol] 7.4 g/dL 6.4-8.[address] [facility] Work Phone: Direct bilirubinon 2 Bilirubin.direct [Mass/Vol] 0.05 mg/dL 0.00-0.30 [facility] Work Phone: Hemoglobin.gastrointestinal Ql ([place] fld)on 07-24-2021 Gastric Occult Blood Positive [facility] Work Phone: Laboratory - Chemistry and C hemistry - challengeon 07-24-2021 ALP [Catalytic activity/Vol] 59 U/L 45-117 [facility] Work Phone: ALT [Catalytic activity/Vol] 21 U/L 13-56 [facility] Work Phone: Globulin (S) [Mass/Vol] 4.0 g/dL 2.2-4.[address] [facility] Work Phone: Lipase [Catalytic activity/Vol] 105 U/L 73-393 [facility] Work Phone: Serum or plasma albumin manuel urement (mass/volume)on 07-24-2021 Albumin [Mass/Vol] 3.4 g/dL 3.2-5.[address] [facility] Work Phone: Thin prep Papanicolaou smear with manual screeningon 07-24-2021 Thin prep Papanicolaou smear with manual screening 31 U/L 15-37 [facility] Work Phone: Absolute lymphocyte counton 06-19-2021 Lymphocytes Auto (Unsp spec) [#/Vol] 1.69 10*3/uL 0.83-4.51 [facility] Work Phone: Basophil percentageon 2021 Basophils/100 WBC (Bld) 1.1 % 0-[address] [facility] Work Phone: Bilirubin [Mass/Vol] 0.40 mg/dL 0.20-1.00 [facility] Work Phone: Comment on above: For patients on eltr ombopag therapy, use of Dimension [place] TBIL is not recommended. Chloride [Moles/Vol] 99 mmol/L 98-107 [facility] Work Phone: Eosinophils/100 WBC (Bld) 2.2 % 0-5 [facility] Work Phone: Glucose [Mass/Vol] 93 mg/dL 74-[address] [facility] Work Phone: Neutrophils (Bld) [#/Vol] 3.1 10*3/uL 2.0-7.7 [facility] Work Phone: [phone] Neutrophils/100 WBC (Bld) 55.2 % 47-70 [facility] Work Phone: Potassium [Moles/Vol] 4.0 mmol/L 3.5-5.1 [facility] Work Phone: Protein [Mass/Vol] 8.1 g/dL 6.4-8.[address] [facility] Work Phone: Sodium [Moles/Vol] 137 mmol/L 136-[address] [facility] Work Phone: WBC (Bld) [#/Vol] 5.5 10*3/uL 4.4-11.[address] [facility] Work Phone: Blood erythrocytes count (nu mber/volume)on 06-19-2021 RBC (Bld) [#/Vol] 4.15 10*6/uL 4.2-5.[address] [facility] Work Phone: Blood hemoglobin measurement (mass/volume)on 06-19-2021 Hemoglobin (Bld) [Mass/Vol] 11.8 g/dL 12.0-15.0 [facility] Work Phone: Blood lymphocytes/100 leukoc yteson 06-19-2021 Lymphocytes/100 WBC (Bld) 30.6 % 19-41 [facility] Work Phone: Blood monocytes/100 leukocyt eson 06-19-2021 Monocytes/100 WBC (Bld) 10.5 % 0-[address] [facility] Work Phone: Blood platelet mean volumeon 06-19-2021 Platelet mean volume (Bld) [Entitic vol] 10.0 fL 6.2-12.0 [facility] Work Phone: Determination of erythrocyte mean corpuscular volume (MCV)on 06-19-2021 MCV (RBC) [Entitic vol] 91.3 fL 81-[address] [facility] Work Phone: Erythrocyte sedimentation ra pieter 06-19-2021 ESR (Bld) [Velocity] 47 mm/h 0-30 [facility] Work Phone: Hematocrit Auto (Bld) [Volum e fraction]on 06-19-2021 Hematocrit (Bld) [Volume fraction] 37.9 % 37-47 [facility] Work Phone: Laboratory - Chemistry and C hemistry - challengeon 06-19-2021 ALP [Catalytic activity/Vol] 59 U/L 45-117 [facility] Work Phone: ALT [Catalytic activity/Vol] 23 U/L 13-56 [facility] Work Phone: CO2 [Moles/Vol] 29.0 mmol/L 21.0-32.0 [facility] Work Phone: Globulin (S) [Mass/Vol] 4.5 g/dL 2.2-4.[address] [facility] Work Phone: Urea nitrogen/Creatinine [Mass ratio] 29.7 mg/mg 10-20 [facility] Work Phone: Laboratory - Hematology and Cell countson 06-19-2021 Erythrocyte distribution width (RBC) [Entitic vol] 45.2 fL 35.1-43.9 [facility] Work Phone: Erythrocyte distribution width (RBC) [Ratio] 13.4 % 11.6-14.6 [facility] Work Phone: Immature granulocytes/100 WBC (Bld) 0.400 % 0.0-0.9 [facility] Work Phone: Comment on above: IG% - Immature Granu locytes (promyelocytes, myelocytes and metamyelocytes) > 1% indicates that a LEFT SHIFT is Present. MCH (RBC) [Entitic mass] 28.4 pg 27.0-32.0 [facility] Work Phone: Nucleated RBC/100 WBC (Bld) [Ratio] 0 % 0-5 [facility] Work Phone: MCHC Auto (RBC) [Mass/Vol]on 06-19-2021 MCHC (RBC) [Mass/Vol] 31.1 g/dL 32-36 [facility] Work Phone: No Panel Informationon 06-19 Anti-Nuclear Antibody Screen Negative Negative [facility] Work Phone: Comment on above: Performed at: [address] [id number] Director: Arjun Pisano PhD, Phone: [phone] Estimated GFR (MDRD) Amer 72 mL/min >60 [facility] Work Phone: Comment on above: GFR Calc Estimated GFR (MDRD) Non-Af Amer 60 mL/min >60 [facility] Work Phone: Comment on above: Non- GFR Calc Thyroid Stimulating Hormone (TSH) 0.96 uIU/mL 0.358-3.74 [facility] Work Phone: Platelets bldon 06-19-2021 Platelets (Bld) [#/Vol] 328 10*3/uL 150-450 [facility] Work Phone: Serum or plasma albumin manuel urement (mass/volume)on 06-19-2021 Albumin [Mass/Vol] 3.6 g/dL 3.2-5.[address] [facility] Work Phone: Serum or plasma albumin/glob ulin mass ratioon 06-19-2021 Albumin/Globulin [Mass ratio] 0.8 {ratio} 0.9-2.4 [facility] Work Phone: Serum or plasma calcium manuel urement (mass/volume)on 06-19-2021 Calcium [Mass/Vol] 9.0 mg/dL 8.5-10.[address] [facility] Work Phone: Serum or plasma creatinine m easurement (mass/volume)on 06-19-2021 Creatinine [Mass/Vol] 0.94 mg/dL 0.55-1.02 [facility] Work Phone: Comment on above: The validity of the calculated GFR & GFRAA in patients over 70 years has not been determined. Clinical correlation is essential. Serum or plasma urea nitroge n measurement (mass/volume)on 06-19-2021 Urea nitrogen [Mass/Vol] 28 mg/dL 7-18 [facility] Work Phone: Serum rheumatoid factor dete ctionon 06-19-2021 Rheumatoid factor Ql (S) < 10.0 IU/mL <15 [facility] Work Phone: Thin prep Papanicolaou smear with manual screeningon 06-19-2021 Thin prep Papanicolaou smear with manual screening 21 U/L 15-37 [facility] Work Phone: Thin prep Papanicolaou smear with manual screening 9 5-15 [facility] Work Phone: Laboratory - Microbiology an d Antimicrobial susceptibilityon 05-09-2021 SARS-CoV-2 (COVID-19) RNA RHYS+probe Ql (Unsp spec) Not detected Not Detect [facility] Work Phone: Comment on above: Normal Reference Ran ge: Not DetectedMethod:(RT-PCR) real-time reverse transcriptase PCRLuminex JAQUELINE Instrument*The Food and Drug Administration (FDA) has issued an Emergency Use Authorization (EAU) for the [employer] SARS-CoV-2 Assay for the rapid detection of [...] percentageon 2020 Chloride [Moles/Vol] 104 mmol/L 98-107 [facility] Work Phone: Glucose [Mass/Vol] 97 mg/dL 74-[address] [facility] Work Phone: Comment on above: Please note revised GLUCOSE reference range effective 2017. Potassium [Moles/Vol] 4.1 mmol/L 3.5-5.1 [facility] Work Phone: Sodium [Moles/Vol] 137 mmol/L 136-[address] [facility] Work Phone: Laboratory - Chemistry and C hemistry - challengeon 05-07-2021 CO2 [Moles/Vol] 27.0 mmol/L 21.0-32.0 [facility] Work Phone: Urea nitrogen/Creatinine [Mass ratio] 29.9 mg/mg 10-20 [facility] Work Phone: No Panel Informationon 05-07 Estimated GFR (MDRD) Amer 73 mL/min >60 [facility] Work Phone: Comment on above: GFR Calc Estimated GFR (MDRD) Non-Af Amer 60 mL/min >60 [facility] Work Phone: Comment on above: Non- GFR Calc Serum or plasma calcium manuel urement (mass/volume)on 05-07-2021 Calcium [Mass/Vol] 9.3 mg/dL 8.5-10.[address] [facility] Work Phone: Serum or plasma creatinine m easurement (mass/volume)on 05-07-2021 Creatinine [Mass/Vol] 0.94 mg/dL 0.55-1.02 [facility] Work Phone: Comment on above: The validity of the calculated GFR & GFRAA in patients over 70 years has not been determined. Clinical correlation is essential. Serum or plasma urea nitroge n measurement (mass/volume)on 05-07-2021 Urea nitrogen [Mass/Vol] 28 mg/dL 7-18 [facility] Work Phone: Thin prep Papanicolaou smear with manual screeningon 05-07-2021 Thin prep Papanicolaou smear with manual screening 6 5-15 [facility] Work Phone: Basophil percentageon 2020 Chloride [Moles/Vol] 103 mmol/L 98-107 [facility] Work Phone: Glucose [Mass/Vol] 102 mg/dL 74-[address] [facility] Work Phone: Comment on above: Fasting Glucose resu lt from 100 to 125 mg/dL suggests IMPAIRED HOMEOSTASIS per A.D.A. criteria.Please note revised GLUCOSE reference range effective 2017. Potassium [Moles/Vol] 4.4 mmol/L 3.5-5.1 [facility] Work Phone: Sodium [Moles/Vol] 138 mmol/L 136-[address] [facility] Work Phone: Laboratory - Chemistry and C hemistry - challengeon 04-23-2021 CO2 [Moles/Vol] 28.0 mmol/L 21.0-32.0 [facility] Work Phone: Natriuretic peptide B (Bld) [Mass/Vol] 47.4 pg/mL 0-100 [facility] Work Phone: Urea nitrogen/Creatinine [Mass ratio] 29.1 mg/mg 10-20 [facility] Work Phone: No Panel Informationon 04-23 Estimated GFR (MDRD) Amer 68 mL/min >60 [facility] Work Phone: Comment on above: GFR Calc Estimated GFR (MDRD) Non-Af Amer 56 mL/min >60 [facility] Work Phone: Comment on above: Non- GFR Calc Serum or plasma calcium manuel urement (mass/volume)on 04-23-2021 Calcium [Mass/Vol] 9.5 mg/dL 8.5-10.[address] [facility] Work Phone: Serum or plasma creatinine m easurement (mass/volume)on 04-23-2021 Creatinine [Mass/Vol] 1.00 mg/dL 0.55-1.02 [facility] Work Phone: Comment on above: The validity of the calculated GFR & GFRAA in patients over 70 years has not been determined. Clinical correlation is essential. Serum or plasma urea nitroge n measurement (mass/volume)on 04-23-2021 Urea nitrogen [Mass/Vol] 29 mg/dL 7-18 [facility] Work Phone: Thin prep Papanicolaou smear with manual screeningon 04-23-2021 Thin prep Papanicolaou smear with manual screening 7 5-15 [facility] Work Phone: Coumadin Management: Warfari n Calcon 04-09-2017 INR Coag RelTime (Bld) Hospital lab Invalid Interpretation Code [facility] Work Phone: [phone] INR Coag RelTime (Bld) 2 to 3 Invalid Interpretation Code [facility] Work Phone: [phone] INR Coag RelTime (PPP) 3.3 {INR} Invalid Interpretation Code [facility] Work Phone: [phone] Prothrombin time (PT) Coag time (PPP) 32.0 s Invalid Interpretation Code [facility] Work Phone: [phone] Lab Report: Prothrombin Time w/INRon 04-09-2017 Prothrombin time (PT) Coag time (PPP) 32 s High 11.7-14.9 [facility] Work Phone: [phone] Coumadin Management: Warfari n Calcon 03-20-2017 INR Coag RelTime (Bld) Hospital lab Invalid Interpretation Code [facility] Work Phone: [phone] INR Coag RelTime (Bld) 2 to 3 Invalid Interpretation Code [facility] Work Phone: [phone] INR Coag RelTime (PPP) 2.4 {INR} Invalid Interpretation Code [facility] Work Phone: [phone] Prothrombin time (PT) Coag time (PPP) 25.4 s Invalid Interpretation Code [facility] Work Phone: [phone] Lab Report: Prothrombin Time w/INRon 03-20-2017 Prothrombin time (PT) Coag time (PPP) 25.4 s High 11.7-14.9 [facility] Work Phone: [phone] Office Visit: [facility] 12-27-19 17 Documentation of current medications (procedure) Done Invalid Interpretation Code [facility] Work Phone: [phone] Fall risk assessment Yes Invalid Interpretation Code [facility] Work Phone: [phone] Replaced Document: Maura COWART Observationson 12-26-2016 EKG QRS axis 2 deg Invalid Interpretation Code [facility] Work Phone: [phone] Interpretation Sinus Rhythm WITHIN NORMAL LIMITS Invalid Interpretation Code [facility] Work Phone: [phone] P Alpine 22 deg Invalid Interpretation Code [facility] Work Phone: [phone] [place] Interval 164 ms Invalid Interpretation Code [facility] Work Phone: [phone] Pulse (Heart Rate) 65 /min Invalid Interpretation Code [facility] Work Phone: [phone] QRS Duration 94 ms Invalid Interpretation Code [facility] Work Phone: [phone] QT Interval new path ms Invalid Interpretation Code [facility] Work Phone: [phone] QTc Lopez 406 ms Invalid Interpretation Code [facility] Work Phone: [phone] T Alpine 36 deg Invalid Interpretation Code [facility] Work Phone: [phone] Chart Maintenanceon 09-27-19 17 Left ventricular Ejection fraction 60 % Invalid Interpretation Code [facility] Work Phone: [phone] Lab Report: Basic Metabolic Profile (BMP)on 03-14-2016 Anion gap 6 mmol/L Invalid Interpretation Code 5-15 [facility] Work Phone: [phone] BUN/Creatinine Ratio 32.1 RATIO High 10-20 [facility] Work Phone: [phone] Calcium 9.1 mg/dL Invalid Interpretation Code 8.5-10.1 [facility] Work Phone: [phone] Chloride 95 mmol/L Low 98-107 [facility] Work Phone: [phone] CO2 31.0 mmol/L Invalid Interpretation Code 21.0-32.0 [facility] Work Phone: [phone] Creatinine 1.00 mg/dL Invalid Interpretation Code 0.55-1.20 [facility] Work Phone: [phone] eGFR (non-black) 57 mL/min/{1.73_m2} Low >60 [facility] Work Phone: [phone] eGFR (non-black) 69 mL/min/{1.73_m2} Invalid Interpretation Code >60 [facility] Work Phone: [phone] Glucose mass conc 109 mg/dL Invalid Interpretation Code 70-110 [facility] Work Phone: [phone] Potassium molar conc 5.0 mmol/L Invalid Interpretation Code 3.5-5.1 [facility] Work Phone: [phone] Sodium 132 mmol/L Low 136-145 [facility] Work Phone: [phone] Urea nitrogen 32 mg/dL High 7-18 [facility] Work Phone: [phone] Lab Report: CBC W/Diff, Auto matedon 03-14-2016 Absolute Neut 3.1 X10 3/UL Invalid Interpretation Code 2.0-7.7 [facility] Work Phone: [phone] Basophils/100 WBC Auto (Bld) 1.1 % High 0-1 [facility] Work Phone: [phone] Eosinophils/100 leukocytes 2.1 % Invalid Interpretation Code 0-5 [facility] Work Phone: [phone] Erythrocyte distribution width Auto Ratio (RBC) 13.5 % Invalid Interpretation Code 11.6-14.6 [facility] Work Phone: [phone] Erythrocytes (RBC) 4.00 10*6/uL Low 4.2-5.[address] [facility] Work Phone: [phone] Hematocrit (HCT) 35.7 % Low 37-47 [facility] Work Phone: [phone] Hemoglobin mass conc (Bld) 11.8 g/dL Low 12.0-15.0 [facility] Work Phone: [phone] Immature granulocytes/100 WBC (Bld) 0.400 % Invalid Interpretation Code 0.0-0.9 [facility] Work Phone: [phone] Lymphocytes 1.53 X10 3/UL Invalid Interpretation Code 0.83-4.51 [facility] Work Phone: [phone] Lymphocytes/100 leukocytes 28.7 % Invalid Interpretation Code 19-41 [facility] Work Phone: [phone] MCH 29.5 pg Invalid Interpretation Code 27.0-32.0 [facility] Work Phone: [phone] MCHC mass conc (RBC) 33.1 G/GL Invalid Interpretation Code 32-36 [facility] Work Phone: [phone] MCV 89.3 fL Invalid Interpretation Code 81-99 [facility] Work Phone: [phone] Monocytes/100 leukocytes 9.2 % Invalid Interpretation Code 0-10 [facility] Work Phone: [phone] Neutrophils/100 WBC Auto (Bld) 58.5 % Invalid Interpretation Code 47-70 [facility] Work Phone: [phone] Platelets 373 10*3/mm3 Invalid Interpretation Code 150-450 [facility] Work Phone: [phone] PMV by Jaci 9.4 fL Invalid Interpretation Code 6.2-12.0 [facility] Phone: [phone] RDW SD 44.0 fL High 35.1-43.9 [facility] Work Phone: [phone] WBC (Leukocytes) 5.3 10*3/uL Invalid Interpretation Code 4.4-11.0 [facility] Work Phone: [phone] Lab Report: Thyroid Stim Hor elier (TSH)on 03-14-2016 Thyroid stimulating hormone (TSH) 1.38 u[iU]/mL Invalid Interpretation Code 0.358-3.74 [facility] Phone: [phone] Office Visiton 03-14-2016 Dietary management education, guidance, and counseling (procedure) yes Invalid Interpretation Code [facility] Work Phone: [phone] Tobacco use CPHS Never smoker Invalid Interpretation Code [facility] Work Phone: [phone] 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 Alanine aminotransferase (ALT) 21 U/L Invalid Interpretation Code [facility] Work Phone: [phone] Albumin 3.8 g/dL Invalid Interpretation Code [facility] Work Phone: [phone] Alkaline phosphatase (ALP) 62 U/L Invalid Interpretation Code [facility] Work Phone: [phone] Aspartate aminotransferase (AST) 28 U/L Invalid Interpretation Code [facility] Work Phone: [phone] Bilirubin (total) 0.40 mg/dL Invalid Interpretation Code [facility] Work Phone: [phone] Erythrocyte sedimentation rate 28 mm/h Invalid Interpretation Code [facility] Work Phone: [phone] Protein 7.6 g/dL Invalid Interpretation Code [facility] Work Phone: [phone] Office Visit: [facility] 09-21-19 15 General cardiovascular disease 10Y risk [#] [place]D'Agostino 7 % Invalid Interpretation Code [facility] [facility] [employer] Work Phone: [phone] Tobacco smoking status NHIS Never Invalid Interpretation Code [facility] Work Phone: [phone] Lab Report: BNP,B-Type NATRI URETIC PEPTIDEon 08-11-2014 BNP 32.2 pg/mL Invalid Interpretation Code 0-100 [facility] Work Phone: [phone] Lab Report: Magnesiumon Magnesium 2.0 mg/dL Invalid Interpretation Code 1.8-2.4 [facility] Work Phone: [phone] Lab Report: T4 Total, Thyrox inon 08-11-2014 Thyroxine (T4) 10.1 ug/dL Invalid Interpretation Code 4.8-13.9 [facility] Work Phone: [phone] Office Visit: [facility] 08-12-19 15 cardiac risk group B Invalid Interpretation Code [facility] Work Phone: [phone] External Other: [employer] thod of Contacton 11-17-2013 methcontact secmsg Invalid Interpretation Code [facility] Work Phone: [phone] 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 Cholesterol 210 mg/dL High [facility] Work Phone: [phone] HDL Cholesterol 93 mg/dL Invalid Interpretation Code [facility] Work Phone: [phone] LDL Cholesterol 104 mg/dL Invalid Interpretation Code [facility] Work Phone: [phone] Triglyceride 63 mg/dL Invalid Interpretation Code [facility] Work Phone: [phone] very low density lipoproteins 13 mg/dL Invalid Interpretation Code [facility] Work Phone: [phone] COVID-19 virus antigen assay SARS-CoV-2 (COVID-19) Ag IA.rapid Ql (Resp) [facility] Work Phone: Culture, urine Bacteria identified Cx Nom (U) Aerococcus viridans. [facility] Work Phone: Bacteria identified Cx Nom (U) Escherichia coli [facility] Work Phone: Hemoglobin.gastrointestinal Ql ([place]) Gastric Occult Blood Positive [facility] Work Phone: Vital Signs Date Time Vital Sign Value Performing Clinician Facility 12-17-2024 08:56-0400 Body mass index (BMI) [Ratio] 30.7 kg/m2 Dr. Bridget Swenson MD Work Phone: [facility] 12-17-2024 08:56-0400 Body weight 71.[address] Birdget Swenson MD Work Phone: [facility] 12-17-2024 08:56-0400 Diastolic blood pressure 65 mm[Hg] Dr. Bridget Swenson MD Work Phone: [facility] 12-17-2024 08:56-0400 Heart rate 75 /min Dr. Bridget Swenson MD Work Phone: [facility] 12-17-2024 08:56-0400 Respiratory rate 18 /min Dr. Bridget Swenson MD Work Phone: [facility] 12-17-2024 08:56-0400 SaO2% (BldA) [Mass fraction] 94 % Dr. Bridget Swenson MD Work Phone: [facility] 12-17-2024 08:56-0400 Systolic blood pressure 110 mm[Hg] Dr. Bridget Swenson MD Work Phone: [facility] 11-19-2024 11:01-0400 Diastolic blood pressure 64 mm[Hg] Dr. Bridget Swenson MD Work Phone: [facility] 11-19-2024 11:01-0400 Heart rate 58 /min Dr. Bridget Swenson MD Work Phone: [facility] 11-19-2024 11:01-0400 Systolic blood pressure 145 mm[Hg] Dr. Bridget Swenson MD Work Phone: [facility] 11-19-2024 10:43-0400 Body height 152.[address] Bridget Swenson MD Work Phone: 8(005)395-180504 [place] [address] 11-19-2024 10:43-0400 Body mass index (BMI) [Ratio] 29.9 kg/m2 Dr. Bridget Swenson MD Work Phone: 8(083)319-577869 [place] [address] 11-19-2024 10:43-0400 Body weight 69.[address] Bridget wSenson MD Work Phone: 1(673)528-062669 [place] [address] 11-19-2024 10:43-0400 Respiratory rate 16 /min Dr. Bridget Swenson MD Work Phone: 3(467)582-420169 [place] [address] 11-17-2024 19:00-0400 Diastolic blood pressure 66 mm[Hg] Dr. Bridget Swenson MD Work Phone: 3(398)633-497869 [place] [address] 11-17-2024 19:00-0400 Heart rate 85 /min Dr. Bridget Swenson MD Work Phone: 6(099)184-558969 [place] [address] 11-17-2024 19:00-0400 Respiratory rate 11 /min Dr. Bridgte Swenson MD Work Phone: 7(457)797-588569 [place] [address] 11-17-2024 19:00-0400 SaO2% (BldA) [Mass fraction] 97 % Dr. Bridget Swenson MD Work Phone: 7(995)388-382669 [place] [address] 11-17-2024 19:00-0400 Systolic blood pressure 143 mm[Hg] Dr. Bridget Swenson MD Work Phone: 1(861)437-961169 [place] [address] 11-17-2024 12:56-0400 Body height 152.[address] Bridget Swenson MD Work Phone: 0(678)351-121269 [place] [address] 11-17-2024 12:56-0400 Body mass index (BMI) [Ratio] 30.9 kg/m2 Dr. Bridget Swenson MD Work Phone: 0(107)269-630169 [place] [address] 11-17-2024 12:56-0400 Body temperature 97.9 [degF] Dr. Bridget Swenson MD Work Phone: 0(623)675-163969 [place] [address] 11-17-2024 12:56-0400 Body weight [address] Bridget Swenson MD Work Phone: [facility] 10-13-2024 03:00-0400 Diastolic blood pressure 54 mm[Hg] Nichole Guerra DO Work Phone: [facility] 10-13-2024 03:00-0400 Heart rate 82 /min Nichole Guerra DO Work Phone: [facility] 10-13-2024 03:00-0400 Respiratory rate 18 /min Nichole Guerra DO Work Phone: [facility] 10-13-2024 03:00-0400 SaO2% (BldA) [Mass fraction] 93 % Nichole Guerra DO Work Phone: [facility] 10-13-2024 03:00-0400 Systolic blood pressure 143 mm[Hg] Nichole Guerra DO Work Phone: [facility] 10-12-2024 23:14-0400 Body temperature 97.81 [degF] Nichole Guerra DO Work Phone: [facility] 10-09-2024 12:36-0400 Body temperature 98 [degF] Dr. Bridget Swenson MD Work Phone: [facility] 10-09-2024 12:36-0400 Diastolic blood pressure 48 mm[Hg] Dr. Bridget Swenson MD Work Phone: [facility] 10-09-2024 12:36-0400 Heart rate 68 /min Dr. Bridget Swenson MD Work Phone: [facility] 10-09-2024 12:36-0400 Respiratory rate 16 /min Dr. Bridget Swenson MD Work Phone: [facility] 10-09-2024 12:36-0400 SaO2% (BldA) [Mass fraction] 98 % Dr. Bridget Swenson MD Work Phone: [facility] 10-09-2024 12:36-0400 Systolic blood pressure 124 mm[Hg] Dr. Bridget Swenson MD Work Phone: 3(075)490-264804 [place] [address] 10-09-2024 11:50-0400 Body mass index (BMI) [Ratio] 29.7 kg/m2 Dr. Bridget Swenson MD Work Phone: 4(993)411-915704 [place] [address] 10-09-2024 06:00-0400 Body weight 69.[address] Bridget Swenson MD Work Phone: 5(343)716-424369 [place] [address] 10-07-2024 14:01-0400 Body height 152.[address] Bridget Swenson MD Work Phone: 0(373)092-026269 [place] [address] 10-04-2024 14:00-0400 Diastolic blood pressure 52 mm[Hg] Dr. Bridget Swenson MD Work Phone: 8(506)027-768769 [place] [address] 10-04-2024 14:00-0400 Systolic blood pressure 151 mm[Hg] Dr. Bridget Swenson MD Work Phone: 7(797)875-038469 [place] [address] 10-04-2024 01:06-0400 Body temperature 97.9 [degF] Dr. Bridget Swenson MD Work Phone: 6(110)843-492069 [place] [address] 10-04-2024 01:06-0400 Heart rate 88 /min Dr. Bridget Swenson MD Work Phone: 2(153)504-475369 [place] [address] 10-04-2024 01:06-0400 Respiratory rate 18 /min Dr. Bridget Swenson MD Work Phone: 3(850)729-034169 [place] [address] 10-04-2024 01:06-0400 SaO2% (BldA) [Mass fraction] 99 % Dr. Bridget Swenson MD Work Phone: 9(795)615-543369 [place] [address] 10-03-2024 19:05-0400 Body mass index (BMI) [Ratio] 26.6 kg/m2 Dr. Bridget Swenson MD Work Phone: 8(187)850-058304 [place] [address] 10-03-2024 19:05-0400 Body weight 70.[address] Bridget Swenson MD Work Phone: [facility] 10-03-2024 17:44-0400 Body height 162.[address] Bridget Swenson MD Work Phone: 3(726)551-660969 [place] [address] 10-01-2024 20:11-0400 Body temperature 98.2 [degF] Dr. Bridget Swenson MD Work Phone: 9(526)114-398369 [place] [address] 10-01-2024 20:11-0400 Heart rate 86 /min Dr. Bridget Swenson MD Work Phone: 3(704)558-849669 [place] [address] 10-01-2024 20:11-0400 Respiratory rate 20 /min Dr. Bridget Swenson MD Work Phone: 1(104)533-878369 [place] [address] 10-01-2024 20:11-0400 SaO2% (BldA) [Mass fraction] 97 % Dr. Bridget Swenson MD Work Phone: 9(927)243-431469 [place] [address] 10-01-2024 18:00-0400 Diastolic blood pressure 65 mm[Hg] Dr. Bridget Swenson MD Work Phone: 4(554)205-890169 [place] [address] 10-01-2024 18:00-0400 Systolic blood pressure 160 mm[Hg] Dr. Bridget Swenson MD Work Phone: 4(240)691-765169 [place] [address] 10-01-2024 15:22-0400 Body mass index (BMI) [Ratio] 27.2 kg/m2 Dr. Bridget Swenson MD Work Phone: 5(010)543-539404 [place] [address] 10-01-2024 15:22-0400 Body weight [address] Bridget Swenson MD Work Phone: 3(026)598-645669 [place] [address] 09-03-2024 12:18-0400 Body temperature 97.8 [degF] Dr. Bridget Swenson MD Work Phone: 1(898)533-180069 [place] [address] 09-03-2024 12:18-0400 Diastolic blood pressure 45 mm[Hg] Dr. Bridget Swenson MD Work Phone: 1(587)429-385269 [place] [address] 09-03-2024 12:18-0400 Heart rate 75 /min Dr. Bridget Swenson MD Work Phone: [facility] 09-03-2024 12:18-0400 Respiratory rate 16 /min Dr. Bridget Swenson MD Work Phone: [facility] 09-03-2024 12:18-0400 SaO2% (BldA) [Mass fraction] 96 % Dr. Bridget Swenson MD Work Phone: 8(400)529-513104 [place] [address] 09-03-2024 12:18-0400 Systolic blood pressure 134 mm[Hg] Dr. Bridget Swenson MD Work Phone: 4(292)799-919469 [place] [address] 09-01-2024 13:10-0400 Body weight [address] Bridget Swenson MD Work Phone: 8(215)760-824669 [place] [address] 09-01-2024 03:03-0400 Body mass index (BMI) [Ratio] 28 kg/m2 Dr. Bridget Swenson MD Work Phone: 2(537)047-448104 [place] [address] 08-31-2024 16:18-0400 Body mass index (BMI) [Ratio] 31.6 kg/m2 Dr. Bridget Swenson MD Work Phone: 4(971)620-561704 [place] [address] 08-31-2024 16:07-0400 Diastolic blood pressure 44 mm[Hg] Dr. Bridget Swenson MD Work Phone: 5(290)537-386004 [place] [address] 08-31-2024 16:07-0400 Heart rate 98 /min Dr. Bridget Swenson MD Work Phone: [facility] 08-31-2024 16:07-0400 Systolic blood pressure 138 mm[Hg] Dr. Bridget Swenson MD Work Phone: 4(161)738-587169 [place] [address] 08-31-2024 16:04-0400 Body temperature 98.2 [degF] Dr. Bridget Swenson MD Work Phone: 8(943)712-314204 [place] [address] 08-31-2024 16:04-0400 Respiratory rate 16 /min Dr. Bridget Swenson MD Work Phone: 0(558)703-316269 [place] [address] 08-31-2024 16:04-0400 SaO2% (BldA) [Mass fraction] 94 % Dr. Bridget Swenson MD Work Phone: 7(872)731-439969 [place] [address] 08-31-2024 14:33-0400 Body weight 73.[address] Bridget Swenson MD Work Phone: 0(590)149-950369 [place] [address] 08-30-2024 23:35-0400 Inhaled oxygen concentration 21 % Dr. Bridget Swenson MD Work Phone: 5(998)238-478469 [place] [address] 08-30-2024 14:00-0400 Diastolic blood pressure 78 mm[Hg] Dr. Bridget Swenson MD Work Phone: 8(110)465-942869 [place] [address] 08-30-2024 14:00-0400 Heart rate 89 /min Dr. Bridget Swenson MD Work Phone: 9(590)711-080469 [place] [address] 08-30-2024 14:00-0400 Respiratory rate 18 /min Dr. Bridget Swenson MD Work Phone: 1(353)912-532869 [place] [address] 08-30-2024 14:00-0400 SaO2% (BldA) [Mass fraction] 95 % Dr. Bridget Swenson MD Work Phone: 1(787)080-313369 [place] [address] 08-30-2024 14:00-0400 Systolic blood pressure 166 mm[Hg] Dr. Bridget Swenson MD Work Phone: 8(472)750-574069 [place] [address] 08-30-2024 13:30-0400 Body temperature 98.1 [degF] Dr. Bridget Swenson MD Work Phone: 2(696)091-281469 [place] [address] 08-30-2024 10:25-0400 Body height 152.[address] Bridget Swenson MD Work Phone: 9(245)927-267469 [place] [address] 08-30-2024 10:25-0400 Body mass index (BMI) [Ratio] 30.8 kg/m2 Dr. Bridget Swenson MD Work Phone: 5(760)726-891469 [place] [address] 08-30-2024 10:25-0400 Body weight 71.[address] Bridget Swenson MD Work Phone: [facility] 07-26-2024 11:21-0400 Body mass index (BMI) [Ratio] 32.5 kg/m2 Dr. Bridget Swenson MD Work Phone: [facility] 07-26-2024 11:21-0400 Body weight 75.[address] Bridget Swenson MD Work Phone: [facility] 07-26-2024 11:21-0400 Diastolic blood pressure 74 mm[Hg] Dr. Bridget Swenson MD Work Phone: [facility] 07-26-2024 11:21-0400 Heart rate 63 /min Dr. Bridget Swenson MD Work Phone: [facility] 07-26-2024 11:21-0400 Respiratory rate 18 /min Dr. Bridget Swenson MD Work Phone: [facility] 07-26-2024 11:21-0400 SaO2% (BldA) [Mass fraction] 96 % Dr. Bridget Swenson MD Work Phone: [facility] 07-26-2024 11:21-0400 Systolic blood pressure 169 mm[Hg] Dr. Bridget Swenson MD Work Phone: [facility] 07-26-2024 09:46-0400 Body temperature 97.9 [degF] Dr. Bridget Swenson MD Work Phone: [facility] 07-26-2024 09:46-0400 Diastolic blood pressure 53 mm[Hg] Dr. Bridget Swenson MD Work Phone: [facility] 07-26-2024 09:46-0400 Heart rate 74 /min Dr. Bridget Swenson MD Work Phone: [facility] 07-26-2024 09:46-0400 Respiratory rate 16 /min Dr. Bridget Swenson MD Work Phone: [facility] 07-26-2024 09:46-0400 SaO2% (BldA) [Mass fraction] 95 % Dr. Bridget Swenson MD Work Phone: [facility] 07-26-2024 09:46-0400 Systolic blood pressure 138 mm[Hg] Dr. Bridget Swenson MD Work Phone: [facility] 07-21-2024 09:54-0400 Body weight 76.[address] Bridget Swensno MD Work Phone: 8(709)245-911639 [address] 07-20-2024 16:17-0400 Body mass index (BMI) [Ratio] 33 kg/m2 Dr. Bridget Swenson MD Work Phone: 9(461)747-970139 [address] 07-10-2024 09:09-0500 Inhaled oxygen flow rate 2 L/min Dr. Bridget Swenson MD Work Phone: 0(920)883-770739 [address] 06-26-2024 17:49-0500 Diastolic blood pressure 50 mm[Hg] Dr. Bridget Swenson MD Work Phone: 5(028)718-390404 [place] [address] 06-26-2024 17:49-0500 Heart rate 67 /min Dr. Bridget Swenson MD Work Phone: 0(716)432-727104 [address] [place] [place] [address] 06-26-2024 17:49-0500 Respiratory rate 16 /min Dr. Bridget Swenson MD Work Phone: 2(094)936-449904 [place] [address] 06-26-2024 17:49-0500 SaO2% (BldA) [Mass fraction] 99 % Dr. Bridget Swenson MD Work Phone: [facility] 06-26-2024 17:49-0500 Systolic blood pressure 198 mm[Hg] Dr. Bridget Swenson MD Work Phone: 7(272)478-805304 [place] [address] 06-26-2024 16:53-0500 Inhaled oxygen flow rate 2 L/min Dr. Bridget Swenson MD Work Phone: 2(144)960-063704 [place] [address] 06-26-2024 16:00-0500 Body temperature 98 [degF] Dr. Bridget Swenson MD Work Phone: [facility] 06-26-2024 12:27-0500 Body mass index (BMI) [Ratio] 32.5 kg/m2 Dr. Bridget Swenson MD Work Phone: [facility] 06-26-2024 12:27-0500 Body weight 75.[address] Bridget Swenson MD Work Phone: [facility] 06-15-2024 10:46-0500 Body height 152.4 cm Jessa Mikula TUGGER OPERATOR.CORPORATE CONSULTANT Work Phone: [facility] 06-15-2024 10:46-0500 Body mass index (BMI) [Ratio] 31.64 kg/m2 Jessa Mikula TUGGER OPERATOR.CORPORATE CONSULTANT Work Phone: [facility] 06-15-2024 10:46-0500 Body weight 73.48 kg Jessa Mikula TUGGER OPERATOR.CORPORATE CONSULTANT Work Phone: [facility] 06-15-2024 10:46-0500 Diastolic blood pressure 44 mm[Hg] Jessa Mikula TUGGER OPERATOR.CORPORATE CONSULTANT Work Phone: [facility] 06-15-2024 10:46-0500 Heart rate 84 /min Jessa Mikula TUGGER OPERATOR.CORPORATE CONSULTANT Work Phone: [facility] 06-15-2024 10:46-0500 Systolic blood pressure 171 mm[Hg] Jessa Mikula TUGGER OPERATOR.CORPORATE CONSULTANT Work Phone: [facility] 06-15-2024 05:30-0500 Heart rate 69 /min Dr. Bridget Swenson MD Work Phone: [facility] 06-15-2024 05:30-0500 Respiratory rate 16 /min Dr. Bridget Swenson MD Work Phone: [facility] 06-14-2024 19:57-0500 Diastolic blood pressure 52 mm[Hg] Dr. Bridget Swenson MD Work Phone: [facility] 06-14-2024 19:57-0500 Systolic blood pressure 157 mm[Hg] Dr. Bridget Swenson MD Work Phone: 8(755)235-237204 [place] [address] 06-14-2024 19:15-0500 Body temperature 98.2 [degF] Dr. Bridget Swenson MD Work Phone: 9(165)108-624869 [place] [address] 06-14-2024 19:15-0500 SaO2% (BldA) [Mass fraction] 95 % Dr. Bridget Swenson MD Work Phone: 2(881)679-024969 [place] [address] 06-08-2024 15:57-0500 Body mass index (BMI) [Ratio] 32.9 kg/m2 Dr. Bridget Swenson MD Work Phone: 5(737)680-427069 [place] [address] 06-08-2024 15:57-0500 Body weight 76.[address] Bridget Swenson MD Work Phone: 4(748)719-411369 [place] [address] 06-06-2024 05:54-0500 Inhaled oxygen flow rate 2 L/min Dr. Bridget Swenson MD Work Phone: 0(831)572-387869 [place] [address] 05-30-2024 10:00-0500 Diastolic blood pressure 68 mm[Hg] Dr. Bridget Swenson MD Work Phone: 8(908)071-036869 [place] [address] 05-30-2024 10:00-0500 Systolic blood pressure 138 mm[Hg] Dr. Bridget Swenson MD Work Phone: 8(250)813-844069 [place] [address] 05-30-2024 08:36-0500 Heart rate 68 /min Dr. Bridget Swenson MD Work Phone: 7(407)489-621369 [place] [address] 05-30-2024 04:38-0500 Body temperature 98 [degF] Dr. Bridget Swenson MD Work Phone: 8(684)449-883369 [place] [address] 05-30-2024 04:38-0500 Respiratory rate 16 /min Dr. Bridget Swenson MD Work Phone: 7(871)416-348739 [address] 05-30-2024 04:38-0500 SaO2% (BldA) [Mass fraction] 95 % Dr. Bridget Swenson MD Work Phone: [facility] 05-28-2024 07:20-0500 Inhaled oxygen flow rate 2 L/min Dr. Bridget Swenson MD Work Phone: [facility] 05-26-2024 06:00-0500 Body mass index (BMI) [Ratio] 32.1 kg/m2 Dr. Bridget Swenson MD Work Phone: [facility] 05-26-2024 06:00-0500 Body weight 74.[address] Bridget Swenson MD Work Phone: [facility] 05-18-2024 20:34-0500 Inhaled oxygen concentration 21 % Dr. Bridget Swenson MD Work Phone: [facility] 05-14-2024 12:15-0500 Diastolic blood pressure 71 mm[Hg] Ip [facility] 05-14-2024 12:15-0500 Heart rate 60 /min Ip [facility] 05-14-2024 12:15-0500 SaO2% (BldA) [Mass fraction] 94 % Ip [facility] 05-14-2024 12:15-0500 Systolic blood pressure 157 mm[Hg] Ip [facility] 05-14-2024 12:05-0500 Respiratory rate 33 /min Ip [facility] 05-14-2024 11:32-0500 Body temperature 97.39 [degF] Ip [facility] 05-11-2024 16:30-0500 Diastolic blood pressure 53 mm[Hg] Dr. Bridget Swenson MD Work Phone: [facility] 05-11-2024 16:30-0500 Heart rate 87 /min Dr. Bridget Swenson MD Work Phone: [facility] 05-11-2024 16:30-0500 Inhaled oxygen flow rate 2 L/min Dr. Bridget Swenson MD Work Phone: [facility] 05-11-2024 16:30-0500 Respiratory rate 14 /min Dr. Bridget Swenson MD Work Phone: [facility] 05-11-2024 16:30-0500 SaO2% (BldA) [Mass fraction] 99 % Dr. Bridget Swenson MD Work Phone: [facility] 05-11-2024 16:30-0500 Systolic blood pressure 145 mm[Hg] Dr. Bridget Swenson MD Work Phone: 7(333)205-142539 [address] 05-11-2024 11:52-0500 Body mass index (BMI) [Ratio] 34 kg/m2 Dr. Bridget Swenson MD Work Phone: 4(458)884-078539 [address] 05-11-2024 11:52-0500 Body weight 78.[address] Bridget Swenson MD Work Phone: 4(663)283-522369 [place] [address] 05-11-2024 11:46-0500 Body temperature 98 [degF] Dr. Bridget Swenson MD Work Phone: 2(873)074-916904 [place] [address] 05-12-2023 09:28-0500 Heart rate 87 /min Dr. Doyle Swenson Work Phone: 0(578)553-226339 [address] 05-12-2023 09:28-0500 Respiratory rate 16 /min Dr. Doyle Swenson Work Phone: 1(765)319-448439 [address] 05-12-2023 09:28-0500 SaO2% (BldA) [Mass fraction] 92 % Dr. Doyle Swenson Work Phone: [facility] 05-12-2023 07:31-0500 Body height 152.[address] Doyle Swenson Work Phone: [facility] 05-12-2023 07:31-0500 Body temperature 99.9 [degF] Dr. Doyle Swenson Work Phone: [facility] 05-12-2023 07:31-0500 Diastolic blood pressure 81 mm[Hg] Dr. Doyle Swenson Work Phone: 9(671)440-636404 [place] [address] 05-12-2023 07:31-0500 Systolic blood pressure 201 mm[Hg] Dr. Doyle Swenson Work Phone: [facility] 01-28-2023 14:05-0400 Body height 152.[address] Doyle Swenson Work Phone: [facility] 01-28-2023 14:05-0400 Body mass index (BMI) [Ratio] 33.5 kg/m2 Dr. Doyle Swenson Work Phone: [facility] 01-28-2023 14:05-0400 Body weight 78.[address] Doyle Swenson Work Phone: [facility] 01-28-2023 14:05-0400 Diastolic blood pressure 82 mm[Hg] Dr. Doyle Swenson Work Phone: [facility] 01-28-2023 14:05-0400 Heart rate 66 /min Dr. Doyle Swenson Work Phone: [facility] 01-28-2023 14:05-0400 Respiratory rate 18 /min Dr. Doyle Swenson Work Phone: [facility] 01-28-2023 14:05-0400 Systolic blood pressure 186 mm[Hg] Dr. Doyle Swenson Work Phone: [facility] 06-18-2022 10:21-0500 Body height 152.[address] Doyle Swenson Work Phone: [facility] 05-18-2022 19:38-0500 Diastolic blood pressure 80 mm[Hg] Dr. Doyle Swenson Work Phone: [facility] 05-18-2022 19:38-0500 Heart rate 78 /min Dr. Doyle Swenson Work Phone: [facility] 05-18-2022 19:38-0500 Respiratory rate 15 /min Dr. Doyle Swenson Work Phone: [facility] 05-18-2022 19:38-0500 SaO2% (BldA) [Mass fraction] 0 % Dr. Doyle Swenson Work Phone: [facility] 05-18-2022 19:38-0500 Systolic blood pressure 124 mm[Hg] Dr. Doyle Swenson Work Phone: [facility] 05-18-2022 16:04-0500 Body height 152.[address] Doyle Swenson Work Phone: [facility] 05-18-2022 16:04-0500 Body mass index (BMI) [Ratio] 33.7 kg/m2 Dr. Doyle Swenson Work Phone: [facility] 05-18-2022 16:04-0500 Body temperature 98.8 [degF] Dr. Doyle Swenson Work Phone: [facility] 05-18-2022 16:04-0500 Body weight 78.[address] Doyle Swenson Work Phone: [facility] 04-18-2022 14:56-0500 Body temperature 97.7 [degF] Dr. Doyle Swenson Work Phone: [facility] 04-18-2022 14:56-0500 Diastolic blood pressure 70 mm[Hg] Dr. Doyle Swenson Work Phone: [facility] 04-18-2022 14:56-0500 Heart rate 79 /min Dr. Doyle Swenson Work Phone: [facility] 04-18-2022 14:56-0500 Respiratory rate 18 /min Dr. Doyle Swenson Work Phone: [facility] 04-18-2022 14:56-0500 SaO2% (BldA) [Mass fraction] 95 % Dr. Doyle Swenson Work Phone: [facility] 04-18-2022 14:56-0500 Systolic blood pressure 145 mm[Hg] Dr. Doyle Swenson Work Phone: [facility] 04-17-2022 13:55-0500 Body height 152.[address] Doyle Swenson Work Phone: [facility] Work Phone: 04-17-2022 13:55-0500 Body mass index (BMI) [Ratio] 33.6 kg/m2 Dr. Doyle Swenson Work Phone: [facility] 04-17-2022 13:55-0500 Body weight 78.[address] Doyle Swenson Work Phone: [facility] 04-11-2022 14:28-0500 Inhaled oxygen flow rate 2 L/min Dr. Doyle Swenson Work Phone: [facility] 04-11-2022 09:04-0500 Body temperature 98 [degF] Dr. Doyle Swenson Work Phone: [facility] Work Phone: 04-11-2022 09:04-0500 Diastolic blood pressure 48 mm[Hg] Dr. Doyle Swenson Work Phone: [facility] Work Phone: 04-11-2022 09:04-0500 Heart rate 65 /min Dr. Doyle Swenson Work Phone: [facility] Work Phone: 04-11-2022 09:04-0500 Inhaled oxygen flow rate 1 L/min Dr. Doyle Swenson Work Phone: [facility] Work Phone: 04-11-2022 09:04-0500 Respiratory rate 16 /min Dr. Doyle Swenson Work Phone: [facility] Work Phone: 04-11-2022 09:04-0500 SaO2% (BldA) [Mass fraction] 96 % Dr. Doyle Swenson Work Phone: [facility] Work Phone: 04-11-2022 09:04-0500 Systolic blood pressure 138 mm[Hg] Dr. Doyle Swenson Work Phone: [facility] Work Phone: 04-10-2022 22:43-0500 Body height 152.[address] Doyle Swenson Work Phone: [facility] Work Phone: 04-10-2022 22:43-0500 Body mass index (BMI) [Ratio] 33.7 kg/m2 Dr. Doyle Swenson Work Phone: [facility] Work Phone: 04-10-2022 22:43-0500 Body weight 78.[address] Doyle Swenson Work Phone: [facility] Work Phone: 04-10-2022 21:10-0500 Body temperature 97.9 [degF] Dr. Doyle Swenson Work Phone: [facility] Work Phone: 04-10-2022 21:10-0500 Diastolic blood pressure 59 mm[Hg] Dr. Doyle Swenson Work Phone: [facility] Work Phone: 04-10-2022 21:10-0500 Heart rate 89 /min Dr. Doyle Swenson Work Phone: [facility] Work Phone: 04-10-2022 21:10-0500 Respiratory rate 18 /min Dr. Doyle Swenson Work Phone: [facility] Work Phone: 04-10-2022 21:10-0500 SaO2% (BldA) [Mass fraction] 93 % Dr. Doyle Swenson Work Phone: [facility] Work Phone: 04-10-2022 21:10-0500 Systolic blood pressure 142 mm[Hg] Dr. Doyle Swenson Work Phone: [facility] Work Phone: 04-10-2022 16:47-0500 Body height 152.[address] Doyle Swenson Work Phone: [facility] Work Phone: 04-10-2022 16:47-0500 Body mass index (BMI) [Ratio] 33.5 kg/m2 Dr. Doyle Swenson Work Phone: [facility] Work Phone: 04-10-2022 16:47-0500 Body weight 78.[address] Doyle Swenson Work Phone: [facility] Work Phone: 03-18-2022 14:05-0500 Body temperature 97.2 [degF] Dr. Doyle Swenson Work Phone: [facility] 03-18-2022 14:05-0500 Diastolic blood pressure 46 mm[Hg] Dr. Doyle Swenson Work Phone: [facility] 03-18-2022 14:05-0500 Heart rate 73 /min Dr. Doyle Swenson Work Phone: [facility] 03-18-2022 14:05-0500 Respiratory rate 16 /min Dr. Doyle Swenson Work Phone: [facility] 03-18-2022 14:05-0500 SaO2% (BldA) [Mass fraction] 99 % Dr. Doyle Swenson Work Phone: [facility] 03-18-2022 14:05-0500 Systolic blood pressure 135 mm[Hg] Dr. Doyle Swenson Work Phone: [facility] 03-15-2022 14:00-0400 Body height 154.[address] Doyle Swenson Work Phone: [facility] Work Phone: 03-15-2022 14:00-0400 Body weight 78.[address] Doyle Swenson Work Phone: [facility] 02-18-2022 14:00-0400 Body temperature 97.2 [degF] Dr. Doyle Swenson Work Phone: [facility] Work Phone: 02-18-2022 14:00-0400 Diastolic blood pressure 56 mm[Hg] Dr. Doyle Swenson Work Phone: [facility] Work Phone: 02-18-2022 14:00-0400 Heart rate 68 /min Dr. Doyle Swenson Work Phone: [facility] Work Phone: 02-18-2022 14:00-0400 Respiratory rate 16 /min Dr. Doyle Swenson Work Phone: [facility] Work Phone: 02-18-2022 14:00-0400 SaO2% (BldA) [Mass fraction] 94 % Dr. Doyle Swenson Work Phone: [facility] Work Phone: 02-18-2022 14:00-0400 Systolic blood pressure 113 mm[Hg] Dr. Doyle Swenson Work Phone: [facility] Work Phone: 02-17-2022 12:39-0400 Body weight 80.[address] Doyle Swenson Work Phone: [facility] Work Phone: 02-17-2022 11:52-0400 Body height 154.[address] Doyle Swenson Work Phone: [facility] Work Phone: 02-16-2022 11:58-0400 Body mass index (BMI) [Ratio] 33.7 kg/m2 Dr. Doyle Swenson Work Phone: [facility] 02-14-2022 12:37-0400 Body temperature 97.9 [degF] Dr. Doyle Swenson Work Phone: [facility] 02-14-2022 12:37-0400 Diastolic blood pressure 51 mm[Hg] Dr. Doyle Swenson Work Phone: [facility] 02-14-2022 12:37-0400 Heart rate 70 /min Dr. Doyle Swenson Work Phone: [facility] 02-14-2022 12:37-0400 Respiratory rate 18 /min Dr. Doyle Swenson Work Phone: [facility] 02-14-2022 12:37-0400 SaO2% (BldA) [Mass fraction] 94 % Dr. Doyle Swenson Work Phone: [facility] 02-14-2022 12:37-0400 Systolic blood pressure 126 mm[Hg] Dr. Doyle Swenson Work Phone: [facility] 02-12-2022 14:50-0400 Body height 154.[address] Doyle Swenson Work Phone: [facility] Work Phone: 02-12-2022 14:50-0400 Body weight 81.[address] Doyle Swenson Work Phone: [facility] 02-11-2022 17:06-0400 Body mass index (BMI) [Ratio] 74.1 kg/m2 Dr. Doyle Swenson Work Phone: [facility] 02-11-2022 13:24-0400 Body temperature 97.7 [degF] Dr. Doyle Swenson Work Phone: [facility] 02-11-2022 13:24-0400 Diastolic blood pressure 62 mm[Hg] Dr. Doyle Swenson Work Phone: [facility] 02-11-2022 13:24-0400 Heart rate 66 /min Dr. Doyle Swenson Work Phone: [facility] 02-11-2022 13:24-0400 Respiratory rate 18 /min Dr. Doyle Swenson Work Phone: [facility] 02-11-2022 13:24-0400 SaO2% (BldA) [Mass fraction] 91 % Dr. Doyle Swenson Work Phone: [facility] 02-11-2022 13:24-0400 Systolic blood pressure 127 mm[Hg] Dr. Doyle Swenson Work Phone: [facility] 02-11-2022 07:40-0400 Inhaled oxygen flow rate 2 L/min Dr. Doyle Swenson Work Phone: [facility] 02-09-2022 21:49-0400 Body height 154.[address] Doyle Swenson Work Phone: [facility] Work Phone: 02-09-2022 21:49-0400 Body mass index (BMI) [Ratio] 33.5 kg/m2 Dr. Doyle Swenson Work Phone: [facility] 02-09-2022 21:49-0400 Body weight 80.[address] Doyle Swenson Work Phone: [facility] 02-09-2022 21:23-0400 Body temperature 98.4 [degF] Dr. Doyle Swenson Work Phone: [facility] Work Phone: 02-09-2022 21:23-0400 Diastolic blood pressure 52 mm[Hg] Dr. Doyle Swenson Work Phone: [facility] Work Phone: 02-09-2022 21:23-0400 Heart rate 78 /min Dr. Doyle Swenson Work Phone: [facility] Work Phone: 02-09-2022 21:23-0400 Respiratory rate 16 /min Dr. Doyle Swenson Work Phone: [facility] Work Phone: 02-09-2022 21:23-0400 SaO2% (BldA) [Mass fraction] 97 % Dr. Doyle Swenson Work Phone: [facility] Work Phone: 02-09-2022 21:23-0400 Systolic blood pressure 138 mm[Hg] Dr. Doyle Swenson Work Phone: [facility] Work Phone: 02-09-2022 16:59-0400 Body height 154.[address] Doyle Swenson Work Phone: [facility] Work Phone: 02-09-2022 16:59-0400 Body mass index (BMI) [Ratio] 35.9 kg/m2 Dr. Doyle Swenson Work Phone: [facility] Work Phone: 02-09-2022 16:59-0400 Body weight 86.[address] Doyle Swenson Work Phone: [facility] Work Phone: 01-01-2022 14:25-0400 Body height 154.[address] Doyle Swenson Work Phone: [facility] Work Phone: 01-01-2022 14:25-0400 Body mass index (BMI) [Ratio] 34 kg/m2 Dr. Doyle Swenson Work Phone: [facility] Work Phone: 01-01-2022 14:25-0400 Body weight 81.[address] Doyle Swenson Work Phone: [facility] Work Phone: 01-01-2022 14:25-0400 Diastolic blood pressure 69 mm[Hg] Dr. Doyle Swenson Work Phone: [facility] Work Phone: 01-01-2022 14:25-0400 Heart rate 69 /min Dr. Doyle Swenson Work Phone: [facility] Work Phone: 01-01-2022 14:25-0400 Respiratory rate 18 /min Dr. Doyle Swenson Work Phone: [facility] Work Phone: 01-01-2022 14:25-0400 Systolic blood pressure 176 mm[Hg] Dr. Doyle Swenson Work Phone: [facility] Work Phone: 11-22-2021 14:45-0400 Body height 154.[address] Doyle Swenson Work Phone: [facility] Work Phone: 11-22-2021 14:45-0400 Body mass index (BMI) [Ratio] 34 kg/m2 Dr. Doyle Swenson Work Phone: [facility] Work Phone: 11-22-2021 14:45-0400 Body weight 81.[address] Doyle Swenson Work Phone: [facility] Work Phone: 11-22-2021 14:45-0400 Diastolic blood pressure 76 mm[Hg] Dr. Doyle Swenson Work Phone: [facility] Work Phone: 11-22-2021 14:45-0400 Heart rate 71 /min Dr. Doyle Swenson Work Phone: [facility] Work Phone: 11-22-2021 14:45-0400 SaO2% (BldA) [Mass fraction] 94 % Dr. Doyle Swenson Work Phone: [facility] Work Phone: 11-22-2021 14:45-0400 Systolic blood pressure 148 mm[Hg] Dr. Doyle Swenson Work Phone: [facility] Work Phone: 10-04-2021 12:50-0400 Body mass index (BMI) [Ratio] 33.6 kg/m2 Dr. Doyle Swenson Work Phone: [facility] Work Phone: 10-04-2021 12:50-0400 Body weight 80.[address] Doyle Swenson Work Phone: [facility] Work Phone: 10-04-2021 12:50-0400 Diastolic blood pressure 78 mm[Hg] Dr. Doyle Swenson Work Phone: [facility] Work Phone: 10-04-2021 12:50-0400 Heart rate 69 /min Dr. Doyle Swenson Work Phone: [facility] Work Phone: 10-04-2021 12:50-0400 SaO2% (BldA) [Mass fraction] 97 % Dr. Doyle Swenson Work Phone: [facility] Work Phone: 10-04-2021 12:50-0400 Systolic blood pressure 156 mm[Hg] Dr. Doyle Swenson Work Phone: [facility] Work Phone: 07-25-2021 14:30-0400 Body temperature 98.4 [degF] Dr. Doyle Swenson Work Phone: [facility] Work Phone: 07-25-2021 14:30-0400 Diastolic blood pressure 38 mm[Hg] Dr. Doyle Swenson Work Phone: [facility] Work Phone: 07-25-2021 14:30-0400 Heart rate 67 /min Dr. Doyle Swenson Work Phone: [facility] Work Phone: 07-25-2021 14:30-0400 Respiratory rate 16 /min Dr. Doyle Swenson Work Phone: [facility] Work Phone: 07-25-2021 14:30-0400 SaO2% (BldA) [Mass fraction] 92 % Dr. Doyle Swenson Work Phone: [facility] Work Phone: 07-25-2021 14:30-0400 Systolic blood pressure 112 mm[Hg] Dr. Doyle Swenson Work Phone: [facility] Work Phone: 07-25-2021 12:07-0400 Body height 154.[address] Doyle Swenson Work Phone: [facility] Work Phone: 07-25-2021 12:07-0400 Body weight 79.[address] Doyle Swenson Work Phone: [facility] Work Phone: 07-24-2021 08:49-0400 Body mass index (BMI) [Ratio] 33.1 kg/m2 Dr. Doyle Swenson Work Phone: [facility] Work Phone: 05-01-2021 11:26-0500 Body mass index (BMI) [Ratio] 32.3 kg/m2 Dr. Doyle Swenson Work Phone: [facility] Work Phone: 05-01-2021 11:26-0500 Body weight 80.[address] Doyle Swenson Work Phone: [facility] Work Phone: 05-01-2021 11:26-0500 Diastolic blood pressure 73 mm[Hg] Dr. Doyle Swenson Work Phone: [facility] Work Phone: 05-01-2021 11:26-0500 Heart rate 68 /min Dr. Doyle Swenson Work Phone: [facility] Work Phone: 05-01-2021 11:26-0500 Respiratory rate 161 /min Dr. Doyle Swenson Work Phone: [facility] Work Phone: 05-01-2021 11:26-0500 SaO2% (BldA) [Mass fraction] 98 % Dr. Doyle Swenson Work Phone: [facility] Work Phone: 05-01-2021 11:26-0500 Systolic blood pressure 182 mm[Hg] Dr. Doyle Swenson Work Phone: [facility] Work Phone: 12-26-2016 09:43-0400 BMI (Body [...] BSA (Body Surface Area) 1.79 m2 Yenny Cha RN [facility] Work Phone: 01-18-2011 09:56-0400 Body Temperature 98.2 [degF] Yenny Cha RN [facility] Work Phone: Encounters Encounter Date Encounter Type Care Provider Facility Start: 02-22-2025 ambulatory Bridget Mejias lity:[facility] Start: 01-28-2025 ambulatory Bridget GUTIERREZ Facility:[facility] Start: 01-25-2025 ambulatory Bridget GUTIERREZ Facility:[facility] Start: 12-17-2024 End: 12-17-2024 Sho Andino NP-C -[facility] Work Phone: Start: 12-17-2024 End: 12-17-[address] Bridget Swenson MD Work Phone: -[facility] Start: 11-19-2024 End: 11-19-[address] Bridget Swenson MD Work Phone: -Laboratory Start: 11-19-2024 End: 11-19-2024 Sho Andino LUBE TECHNICIAN-C -Laboratory Work Phone: Start: 11-19-2024 End: 11-19-2024 Sho Andino LUBE TECHNICIAN-C -[facility] Work Phone: Start: 11-19-2024 End: 11-19-[address] Bridget Swenson MD Work Phone: -[facility] Start: 11-19-2024 End: 11-19-2024 ambulatory Sho Andino Facility:[facility] Start: 11-17-2024 End: 11-17-2024 Dr. Bridget Swenson MD Work Phone: -Emergency Department Work Phone: Start: 11-17-2024 End: 11-17-2024 Emergency department patient visit Dr. Bridget Swenson MD Work Phone: -Emergency Department Start: 10-12-2024 End: 10-13-2024 Emergency department patient visit Nichole Guerra DO Work Phone: [facility] Emergency Medicine Comment on above: Altered mental statu s, unspecified altered mental status type (Primary Dx); UTI (urinary tract infection), bacterial Start: 10-09-[address] [facility] Work Phone: Start: 10-08-[address] [facility] Work Phone: Start: 10-07-[address] [facility] Work Phone: Start: 10-06-2024 ambulatory Juan José Abel ty:[facility] Start: 10-06-2024 End: 10-09-2024 Evaluation and management of inpatient Dr. Bridget Swenson MD Work Phone: [facility] Work Phone: Start: 10-06-2024 End: 10-09-2024 [facility] Work Phone: Start: 10-05-[address] [facility] Work Phone: Start: 10-04-[address] [facility] Work Phone: Start: 10-04-2024 ambulatory Juan José Abel ty:[facility] Start: 10-04-[address] Bridget Swenson MD Work Phone: [facility] Work Phone: Start: 10-04-2024 Dr. Juan José [facility] Work Phone: Start: 10-01-2024 End: 10-01-2024 Dr. Bridget Swenson MD Work Phone: -Emergency Department Work Phone: Start: 10-01-2024 End: 10-01-2024 Emergency department patient visit Bridget Swenson Facility:[facility] Start: 09-07-2024 End: 09-07-[address] Bridget Swenson MD Work Phone: [facility] Work Phone: Start: 09-07-2024 End: 09-07-2024 Dr. Zackary Lyon MD -[facility] Work Phone: Start: 09-06-2024 End: 09-06-[address] Bridget Swenson MD Work Phone: [facility] Work Phone: Start: 09-06-2024 End: 09-06-2024 Zackary Lyon MD [facility] Start: 09-06-2024 End: 09-06-2024 ambulatory [facility] Facility:[facility] Start: 09-03-2024 Dr. Charles Sullivan MD -[facility] Work Phone: Start: 09-02-2024 Dr. Charles Sullivan MD -[facility] Work Phone: Start: 09-01-2024 End: 09-03-2024 ambulatory Juan José Suarez Facility:[facility] Start: 09-01-2024 End: 09-03-2024 Dr. Charles Sullivan MD -[facility] Work Phone: Start: 08-31-2024 Dr. Charles Sullivan MD -[facility] Work Phone: Start: 08-30-2024 ambulatory [facility] Faci lity:[facility] Start: 08-30-2024 Dr. Evin Mora MD -[facility] Start: 08-30-2024 End: 08-31-2024 ambulatory [facility] Facility:[facility] Start: 08-30-[address] Bridget Swenson MD Work Phone: [facility] Work Phone: Start: 08-30-2024 End: 08-31-2024 Dr. Layla Craig MD -[facility] Work Phone: Start: 07-26-2024 End: 07-26-2024 Tarik MCKEON -[facility] Work Phone: Start: 07-26-2024 End: 07-26-2024 ambulatory Bridget Swenson Facility:[facility] Start: 06-30-2024 End: 07-26-2024 Evaluation and management of inpatient Dr. Bridget Swenson MD Work Phone: [facility] Work Phone: Start: 06-30-2024 End: 07-26-2024 Dr. Aleks Marshall MD -Transitional Care [facility] Start: 06-30-2024 ambulatory Bridget Swenson Faci lity:[facility] Start: 06-26-2024 End: 06-30-2024 Evaluation and management of inpatient BRIDGET SWENSON Facility:[facility] Start: 06-26-2024 End: 06-26-2024 Dr. Horace Horta [facility] Work Phone: Start: 06-26-2024 End: 06-26-2024 Emergency department patient visit Bridget Swenson Facility:[facility] Start: 06-21-2024 End: 06-21-2024 Dr. Bridget Swenson MD -Laboratory, [facility] Start: 06-21-2024 End: 06-21-2024 ambulatory Bridget Swenson Facility:[facility] Start: 06-15-2024 End: 06-15-2024 Patient encounter procedure Jessa Retana TUGGER OPERATOR.CORPORATE CONSULTANT Work Phone: Cerebrovascular Comment on above: Intracranial hemorrh age (HCC) (Primary Dx); Cerebral amyloid angiopathy (CODE); SAH (subarachnoid hemorrhage) (HCC); PAF (paroxysmal atrial fibrillation) (HCC); Primary hypertension Start: 06-15-2024 End: 06-15-2024 ambulatory JESSA RETANA Facility:[facility] Start: 06-14-2024 End: 06-14-2024 Dr. Aleks Marshall MD -Cat Scan, [facility] Work Phone: Start: 06-14-2024 End: 06-14-2024 ambulatory Aleks Chi Rolando Facility:[facility] Start: 06-03-2024 End: 06-03-2024 Dr. Aleks Marshall MD -Cat Scan, [facility] Work Phone: Start: 06-03-2024 End: 06-03-2024 ambulatory Aleks Chi Rolando Facility:[facility] Start: 06-02-2024 End: 06-02-2024 Telephone encounter Jessa Retana APRN.CORPORATE CONSULTANT Work Phone: Cerebrovascular Comment on above: Opened In Error Start: 05-31-2024 ambulatory Aleks Chi Rolando Facility:[facility] Start: 05-31-[address] [facility] Work Phone: Start: 05-31-2024 End: 05-31-2024 Dr. Aleks Marshall MD -Cardiovascular Serv ices Work Phone: Start: 05-31-2024 End: 05-31-2024 ambulatory Aleks Chi Rolando Facility:[facility] Start: 05-30-2024 End: 06-15-2024 Evaluation and management of inpatient Aleks Chi Rolando Facility:[facility] Start: 05-30-2024 End: 06-15-2024 Dr. Aleks Marshall MD -Transitional Care [facility] Start: 05-28-[address] [facility] Work Phone: Start: 05-27-[address] [facility] Work Phone: Start: 05-25-[address] [facility] Work Phone: Start: 05-24-[address] [facility] Work Phone: Start: 05-21-[address] [facility] Work Phone: Start: 05-20-2024 Dr. Joyce Rousseau DO [facility] Work Phone: Start: 05-19-2024 End: 05-19-2024 ambulatory Cari Wong MD, PhD Work Phone: Endovascular Center Comment on above: nsgy DIA-family nsgy DIA Start: 05-19-[address] [facility] Work Phone: Start: 05-18-2024 Dr. Joyce Rousseau DO [facility] Work Phone: Start: 05-16-2024 ambulatory Aleks Chi Rolando Facility:[facility] Start: 05-16-2024 End: 05-30-2024 Evaluation and management of inpatient Aleks Chi Rolando Facility:[facility] Start: 05-16-2024 End: 05-30-2024 Dr. Joyce Rousseau DO -Rehab Unit Work Phone: Start: 05-14-2024 End: 05-14-2024 Patient encounter procedure Ip Transesophageal Echo Cardiology Comment on above: Essential (primary) hypertension (Primary Dx) PAF (paroxysmal atri al fibrillation) (HCC) (Primary Dx) Start: 05-14-2024 End: 05-14-2024 ambulatory [facility] Facility:[facility] Start: 05-13-2024 End: 05-13-2024 Orders Only Faby Orozco APRN.CORPORATE CONSULTANT Work Phone: Endovascular Center Comment on above: SAH (subarachnoid he morrhage) (HCC) (Primary Dx) Start: 05-11-2024 Evaluation and management of inpatient [facility] Facility:[facility] Start: 05-11-2024 End: 05-11-2024 ambulatory Norma Moon APRN.CORPORATE CONSULTANT Work Phone: Critical Care Start: 05-11-2024 End: 05-11-2024 Dr. Tylor Hendrickson DO -Emergency Departme nt Work Phone: Start: 05-11-2024 End: 05-11-2024 Emergency department patient visit Tylor Hendrickson Facility:[facility] Start: 04-14-2024 End: 04-14-2024 Dr. Bridget Swenson MD -[facility] Start: 04-14-2024 End: 04-14-2024 ambulatory Bridget Swenson Facility:[facility] Start: 04-01-2024 ambulatory [facility] Facility: [facility] Start: 04-01-2024 End: 04-01-2024 Dr. Tylor Fang MD -[facility] Start: 04-01-2024 End: 04-01-2024 ambulatory [facility] Facility:[facility] Start: 09-09-2023 Non-patient / Non-visit Dr. Bridget Swenson Work Phone: [facility] Start: 09-09-2023 End: 09-09-[address] Bridget Swenson Work Phone: [facility] Work Phone: Start: 09-09-2023 End: 09-09-[address] Bridget Swenson Work Phone: [facility]-Cardiovascular Services Work Phone: Start: 08-27-2023 End: 08-27-2023 ambulatory [facility] Work Phone: Start: 08-27-2023 End: 08-27-2023 Patient encounter procedure [facility] Work Phone: Start: 08-11-2023 End: 08-11-2023 ambulatory [facility] Work Phone: Start: 08-11-2023 End: 08-11-2023 Patient encounter procedure [facility] Work Phone: Start: 08-08-2023 End: 08-08-2023 ambulatory [facility] Work Phone: Start: 08-08-2023 End: 08-08-2023 Patient encounter procedure [facility] Work Phone: Start: 08-06-2023 End: 08-06-2023 ambulatory [facility] Work Phone: Start: 08-06-2023 End: 08-06-2023 Patient encounter procedure [facility] Work Phone: Start: 06-09-2023 End: 06-09-2023 ambulatory [facility] Work Phone: Start: 06-09-2023 End: 06-09-2023 Patient encounter procedure [facility] Start: 05-12-2023 End: 05-12-2023 Emergency department patient visit Dr. Doyle Swenson [facility] Work [facility] Start: 04-08-2023 End: 04-08-[address] Doyle Swenson Work Phone: [facility] Work Phone: Start: 04-08-2023 End: 04-08-[address] Doyle Swenson Work Phone: [facility] Work Phone: Start: 02-25-2023 End: 02-25-[address] Doyle Swenson Work Phone: [facility] Work Phone: Start: 02-25-2023 End: 02-25-[address] Doyle Swenson Work Phone: [facility] Work Phone: Start: 01-28-2023 End: 01-28-[address] Doyle Swenson Work Phone: [facility] Work Phone: Start: 01-16-2023 Non-patient / Non-visit Dr. Doyle Swenson Work Phone: [facility] Start: 01-16-2023 End: 01-16-[address] Doyle Swenson Work Phone: [facility] Work Phone: Start: 01-16-2023 End: 01-16-[address] Doyle Swenson Work Phone: [facility]-Cardiovascular Services Work Phone: Start: 01-14-2023 End: 01-14-[address] Doyle Swenson Work Phone: [facility] Work Phone: Start: 01-14-2023 End: 01-14-[address] Doyle Swenson Work Phone: [facility] Work Phone: Start: 12-18-2022 End: 12-18-2022 ambulatory [facility] Work Phone: Start: 12-18-2022 End: 12-18-2022 [facility] Start: 11-21-2022 End: 11-21-2022 Patient encounter procedure [facility] Work Phone: Start: 11-06-2022 End: 11-06-2022 ambulatory [facility] Work Phone: Start: 11-06-2022 End: 11-06-2022 [facility] Start: 10-02-2022 End: 10-02-2022 ambulatory [facility] Work Phone: Start: 10-02-2022 End: 10-02-2022 Patient encounter procedure [facility] Start: 08-26-2022 End: 08-26-[address] Doyle Swenson Work Phone: [facility] Work Phone: Start: 08-26-2022 End: 08-26-[address] Doyle Swenson Work Phone: [facility] Start: 06-18-2022 End: 06-18-[address] Doyle Swenson Work Phone: [facility]-Outpatient Bone Densitometry Start: 05-20-2022 End: 05-20-[address] Doyle Swenson Work Phone: [facility] Work Phone: Start: 05-20-2022 End: 05-20-[address] Doyle Swenson Work Phone: [facility] Start: 05-20-2022 End: 05-20-2022 Dr. Doyle Swenson Work Phone: [facility] Start: 05-18-2022 End: 05-18-2022 Emergency department patient visit Dr. Doyle Swenson Work Phone: [facility]-Emergency Department Start: 05-18-2022 End: 05-18-2022 Dr. Doyle Swenson Work Phone: [facility]-Emergency Department Start: 05-14-[address] Vinny Swenson Work Phone: [facility] Start: 05-14-2022 Dr. Doyle Swenson Work Phone: [facility] Start: 05-08-2022 End: 05-08-[address] Doyle Swenson Work Phone: [facility] Start: 05-08-2022 End: 05-08-2022 Dr. Doyle Swenson Work Phone: [facility] Start: 04-29-[address] Vinny Swenson Work Phone: [facility] Start: 04-29-2022 Dr. Doyle Swenson Work Phone: [facility] Start: 04-22-2022 End: 04-22-[address] Doyle Swenson Work Phone: [facility] Work Phone: Start: 04-22-2022 End: 04-22-[address] Doyle Swenson Work Phone: [facility] Start: 04-22-2022 End: 04-22-2022 Dr. Doyle Swenson Work Phone: [facility] Start: 04-19-2022 End: 04-19-[address] Doyle Swenson Work Phone: [facility] Start: 04-19-2022 End: 04-19-2022 Dr. Doyle Swenson Work Phone: [facility] Start: 04-18-2022 Non-patient / Non-visit Dr. Doyle Swenson Work Phone: [facility] Start: 04-18-2022 Dr. Doyle Swenson Work Phone: [facility] Start: 04-17-2022 Non-patient / Non-visit Dr. Doyle Swenson Work Phone: [facility] Start: 04-17-2022 Dr. Doyle Swenson Work Phone: [facility] Start: 04-16-2022 Non-patient / Non-visit Dr. Doyle Swenson Work Phone: [facility] Start: 04-16-2022 Dr. Doyle Swenson Work Phone: [facility] Start: 04-15-2022 Non-patient / Non-visit Dr. Doyle Swenson Work Phone: [facility] Start: 04-15-2022 Dr. Doyle Swenson Work Phone: [facility] Start: 04-14-2022 Non-patient / Non-visit Dr. Doyle Swenson Work Phone: [facility] Start: 04-14-2022 Dr. Doyle Swenson Work Phone: [facility] Start: 04-13-2022 Non-patient / Non-visit Dr. Doyle Swenson Work Phone: [facility] Start: 04-13-2022 Dr. Doyle Swenson Work Phone: [facility] Start: 04-12-2022 Non-patient / Non-visit Dr. Doyle Swenson Work Phone: [facility] Start: 04-12-2022 Dr. Doyle Swenson Work Phone: [facility] Start: 04-11-2022 Non-patient / Non-visit Dr. Doyle Swenson Work Phone: [facility] Start: 04-11-2022 Dr. Doyle Swenson Work Phone: [facility] Start: 04-10-2022 Non-patient / Non-visit Dr. Doyle Swenson Work Phone: [facility] Start: 04-10-2022 End: 04-18-2022 Evaluation and management of inpatient Dr. Doyle Swenson [facility] Start: 04-10-2022 End: 04-18-[address] Doyle Swenson Work Phone: [facility] Work Phone: Start: 04-10-2022 End: 04-18-2022 Dr. Doyle Swenson [facility] Start: 04-08-2022 End: 04-08-[address] Doyle Swenson Work Phone: [facility] Work Phone: Start: 04-08-2022 End: 04-08-[address] Doyle Swenson Work Phone: [facility] Start: 04-08-2022 End: 04-08-2022 Dr. Doyle Swenson Work Phone: [facility] Start: 02-18-2022 Non-patient / Non-visit Dr. Doyle Swenson Work Phone: [facility] Start: 02-18-2022 End: 02-18-[address] Doyle Swenson Work Phone: [facility]-Cardiovascular Services Start: 02-18-2022 End: 02-18-2022 Dr. Doyle Swenson Work Phone: [facility] Start: 02-16-2022 End: 03-18-2022 Evaluation and management of inpatient Dr. Doyle Swenson Work Phone: [facility]-Transitional Care Unit Start: 02-16-2022 End: 03-18-2022 Dr. Doyle Swenson Work Phone: [facility]-Transitional Care Unit Start: 02-15-2022 End: 02-15-[address] Doyle Swenson Work Phone: [facility] Work Phone: Start: 02-15-2022 End: 02-15-[address] Doyle Swenson Work Phone: [facility]-Laboratory, Specimen Start: 02-15-2022 End: 02-15-2022 Dr. Doyle Swenson Work Phone: [facility]-Laboratory, Specimen Start: 02-11-2022 End: 02-14-2022 Evaluation and management of inpatient Dr. Doyle Swenson Work Phone: [facility]-Transitional Care Unit Start: 02-11-2022 End: 02-14-2022 Dr. Doyle Swenson [facility] Start: 02-11-2022 Non-patient / Non-visit Dr. Doyle Swenson Work Phone: [facility] Start: 02-11-2022 Dr. Doyle Swenson Work Phone: [facility] Start: 02-10-2022 Non-patient / Non-visit Dr. Doyle Swenson Work Phone: [facility] Start: 02-10-2022 End: 02-11-2022 Evaluation and management of inpatient Dr. Doyle Swenson [facility] Start: 02-10-2022 End: 02-11-2022 Dr. Doyle Swenson Work Phone: [facility] Surgical 3 Start: 02-09-2022 Non-patient / Non-visit Dr. Doyle Swenson Work Phone: [facility] Start: 02-09-2022 Dr. Doyle Swenson Work Phone: [facility] Start: 02-09-2022 Evaluation and management of inpatient Dr. Doyle Swenson [facility] Phone[facility] Start: 02-09-[address] Doyle Swenson Work Phone: [facility] Work Phone: Start: 02-04-2022 End: 02-04-[address] Doyle Swenson Work Phone: [facility] Work Phone: Start: 02-04-2022 End: 02-04-[address] Doyle Swenson Work Phone: [facility] Start: 02-04-2022 End: 02-04-2022 Dr. Doyle Swenson Work Phone: [facility] Start: 01-01-2022 End: 01-01-[address] Doyle Swenson Work Phone: [facility] Start: 12-20-2021 End: 12-20-[address] Doyle Swenson Work Phone: [facility] Work Phone: Start: 12-20-2021 End: 12-20-[address] Doyle Swenson Work Phone: [facility] Start: 12-18-2021 End: 12-18-[address] Doyle Swenson Work Phone: [facility] Start: 11-22-2021 End: 11-22-[address] Doyle Swenson Work Phone: [facility] Start: 10-29-2021 End: 10-29-[address] Doyle Swenson Work Phone: [facility] Start: 10-04-2021 End: 10-04-[address] Doyle Swenson Work Phone: [facility] Start: 09-27-2021 End: 09-27-[address] Doyle Swenson Work Phone: [facility] Start: 08-14-2021 End: 08-14-[address] Doyle Swenson Work Phone: [facility] Start: 07-27-2021 End: 07-27-[address] Doyle Swenson Work Phone: [facility] Start: 07-25-2021 Non-patient / Non-visit Dr. Doyle Swenson Work Phone: [facility] Start: 07-24-2021 Non-patient / Non-visit Dr. Doyle Swenson Work Phone: [facility] Start: 07-24-2021 Non-patient / Non-visit Dr. Doyle Swenson Work Phone: [facility] Start: 07-24-2021 End: 07-25-2021 Evaluation and management of inpatient Dr. Doyle Swenson Work Phone: [facility]-Medical Surgical 3 Start: 06-19-2021 End: 06-19-[address] Doyle Swenson Work Phone: [facility] Start: 05-09-2021 End: 05-09-[address] Doyle Swenson [facility] Start: 05-07-[address] Doyle Swenson Work Phone: [facility] Start: 05-01-2021 End: 05-01-[address] Doyle Swenson Work Phone: [facility] Start: 04-23-[address] Doyle Swenson Work Phone: [facility]-Laboratory, [facility] Procedures Date Procedure Procedure Detail Performing Clinician [...] Bridget Swenson MD Work Phone: Start: 10-03-2024 Platelet [...] Urnls dip stick/tablet reagent auto microscopy Dr. Bridegt Swenson MD Work Phone: Start: 10-01-2024 Blood [...] Bridget Swenson MD Work Phone: Start: 08-31-2024 MRI of brain without contrast Dr. Vinny Swenson MD Work Phone: Start: 08-31-2024 Blood count smear mcrscp w/mnl difrntl wbc count Dr. Bridget Swenson MD Work Phone: Start: 08-31-[address] Bonita Sewnson MD Work Phone: Start: 08-31-2024 Mean corpuscular [...] Comment: Specimen Type: BLOOD SPEC IMENOrdering Facility: [facility] Address: [address] [place] [address] Performed By: #### T SCR ####[facility] B[facility] [id number] [address] [place] Start: 06-26-2024 Plain radiography [...] Work Phone: Start: 06-14-2024 BUN/Creatinine ratio Dr. Bridget Swenson MD Work Phone: Start: 06-14-2024 Estimated [...] Work Phone: Start: 05-11-2024 Antibody screen DUGLAS KIM Comment on above: Order Comment: Specimen Type: BLOOD SPEC IMENOrdering Facility: [facility] Address: [address] [place] [address] Performed By: #### T SCR ####CC MAIN BLOOD BANKCLIA [id number] [address] Start: 05-11-2024 CT of head without contrast [...] ecg w/least 12 lds w/i&r Tarik H Francy LUBE TECHNICIAN Work Phone: Start: 09-27-2016 End: 12-26-2016 Follow Up Appt 6 months Harjit Zimmerman Start: 09-27-2016 End: 12-26-2016 MMM Evin Mora MD Start: 06-28-2016 End: 06-28-2017 INR [...] Evin Mora MD Start: 09-06-2015 End: 09-06-2015 NUCLEAR DESIGN ENGINEER Yenny Buckley PA-C Work Phone: Start: 09-06-2015 [...] PA-C Work Phone: Start: 08-11-2014 End: 08-11-2014 NUCLEAR DESIGN ENGINEER Yenny Buckley PA-C Work Phone: Start: 08-11-2014 [...] months Harjit Zimmerman Start: 03-17-2014 End: 03-17-2014 SHEREEM Evin Mora MD Start: 11-17-2013 End: 11-17-2013 NUCLEAR DESIGN ENGINEER Yenny Buckley PA-C Work Phone: Start: 11-17-2013 End: 11-17-2013 Follow Up Appt 4 months Yenny Buckley PA-C Work Phone: Start: 11-17-2013 End: 11-23-2013 INR in Platelet poor plasma by Coagulation assay Yenny Buckley PA-C Work Phone: Start: 08-18-2013 End: 08-20-2013 24 hour holter monitor Evin Mora MD Start: 08-18-2013 End: 08-18-2013 Follow Up Appt 3 months Lucile S Abby, M D Start: 08-18-2013 End: 08-18-2013 LUCERO Mora MD Measurement of occul t blood in gastric fluid specimen Dr. Doyle Swenson Work Phone: Urine culture Dr. Doyle Swenson Work Phone: Urine culture Dr. Doyle Swenson Work Phone: Viral antigen assay Dr. Zenaida Swenson Work Phone: Viral antigen assay Dr. Zenaida Swenson Work Phone: Viral antigen assay Dr. Zenaida Swenson Work Phone: Viral antigen assay Dr. Zenaida Swenson Work Phone: Plan of Treatment Date Care Activity Detail Author Start: 06-29-2027 Diabetes Screening Diabetes Screening [facility] Start: 06-25-2027 Urine microalbumin profile DTaP,Tdap,Td Vaccine (2 - Td or Tdap) [facility] Start: 05-13-2027 Diabetes Screening Diabetes Screening [facility] Start: 05-11-2027 Diabetes Screening Diabetes Screening [facility] Start: 10-12-2025 Thyroid stimulating hormone measurement TSH Level [facility] Start: 01-10-2025 Influenza vaccination Influenza Vaccine (Season Ended) [facility] Start: 11-17-2024 [facility] Start: 11-17-2024 [facility] Start: 10-09-2024 Patient discharge [facility] Start: 10-06-2024 Admission procedure [facility] Start: 10-05-2024 Speech therapy assessment [facility] Start: 10-04-2024 [facility] Start: 10-04-2024 Application of intermittent pneumatic compression device [facility] Start: 10-04-2024 Following clinical pathway protocol [facility] Start: 10-04-2024 Assessment of risk of venous thromboembolism [facility] Start: 10-04-2024 Documentation procedure [facility] Start: 10-04-2024 Insertion of catheter into peripheral vein [facility] Start: 10-04-2024 Measuring intake and output [facility] Start: 10-04-2024 Providing care according to standard [facility] Start: 10-04-2024 Provision of activity privileges [facility] Start: 10-04-2024 Referral to occupational therapist [facility] Start: 10-04-2024 Referral to service [facility] Start: 10-04-2024 [facility] Start: 10-04-2024 Continuous positive airway pressure ventilation treatment [facility] Start: 10-04-2024 MRI of brain without contrast [facility] Start: 10-04-2024 Verification routine [facility] Start: 10-04-2024 Admission procedure [facility] Start: 10-04-2024 Hospital admission, emergency, from emergency room, medical nature [facility] Start: 10-04-2024 Patient referral to dietitian [facility] Start: 10-03-2024 [facility] Start: 10-03-2024 End: 10-03-2024 [facility] Start: 10-03-2024 Consultation [facility] Start: 10-01-2024 [facility] Start: 10-01-2024 Urine culture [facility] Start: 09-20-2024 End: 09-20-2024 Patient encounter procedure 09/20/2024 8:00 AM EDT Office Visit Neurology [address] [place] [address] Wally Quesada Jr., MD [address] [place] [address] Restless Leg Syndrome Neurology Comment on above: Restless Leg Syndrome Start: 09-03-2024 Patient discharge [facility] Start: 09-02-2024 Application of intermittent pneumatic compression device [facility] Start: 09-02-2024 Speech therapy assessment [facility] Start: 09-01-2024 Referral to occupational therapist [facility] Start: 09-01-2024 Referral to service [facility] Start: 09-01-2024 Following clinical pathway protocol [facility] Start: 09-01-2024 Continuous positive airway pressure ventilation treatment [facility] Start: 09-01-2024 Admission procedure [facility] Start: 09-01-2024 Consultation [facility] Start: 09-01-2024 Patient referral to dietitian [facility] Start: 08-31-2024 Patient discharge [facility] Start: 08-31-2024 Referral to service [facility] Start: 08-30-2024 Dual pressure spontaneous ventilation support [facility] Start: 08-30-2024 Application of intermittent pneumatic compression device [facility] Start: 08-30-2024 Continuous pulse oximetry [facility] Start: 08-30-2024 Following clinical pathway protocol [facility] Start: 08-30-2024 Aspiration precautions [facility] Start: 08-30-2024 Assessment of risk of venous thromboembolism [facility] Start: 08-30-2024 Cardiac monitoring [facility] Start: 08-30-2024 Catheterization of vein [facility] Start: 08-30-2024 Consultation [facility] Start: 08-30-2024 Elevation of head of bed [facility] Start: 08-30-2024 Exercises [facility] Start: 08-30-2024 Insertion of catheter into peripheral vein [facility] Start: 08-30-2024 Measuring intake and output [facility] Start: 08-30-2024 Notification of physician [facility] Start: 08-30-2024 Oxygen therapy [facility] Start: 08-30-2024 [facility] Start: 08-30-2024 Providing care according to standard [facility] Start: 08-30-2024 Provision of activity privileges [facility] Start: 08-30-2024 Referral to occupational therapist [facility] Start: 08-30-2024 Referral to service [facility] Start: 08-30-2024 Speech therapy assessment [facility] Start: 08-30-2024 Telemedicine consultation with patient [facility] Start: 08-30-2024 Tobacco use cessation education [facility] Start: 08-30-2024 Vital signs measurements [facility] Start: 08-30-2024 Admission procedure [facility] Start: 08-30-2024 End: 08-30-2024 [facility] Start: 08-30-2024 Hospital admission, emergency, from emergency room, medical nature [facility] Start: 08-30-2024 [facility] Start: 08-30-2024 Oxygen therapy [facility] Start: 08-30-2024 [facility] Start: 08-30-2024 Patient referral to dietitian [facility] Start: 08-16-2024 End: 08-16-2024 Patient encounter procedure 08/16/2024 11:00 AM EDT Office Visit Cerebrovascular [address] [place] [address] Jessa Retana APRN.CORPORATE CONSULTANT [address] [place] [address] 3 month follow up Cerebrovascular Comment on above: 3 month follow up Start: 07-27-2024 End: 07-27-2024 Patient encounter procedure 07/27/2024 11:00 AM EDT Office Visit Cardiology [address] [place] [address] Toyin Del Castillo MD [address] [place] [address] Evaluation for watchmann device with hx of pAF Cardiology Comment on above: Evaluation for watchmann device with hx of pAF Start: 07-27-2024 End: 07-27-2024 ambulatory 07/27/2024 10:30 AM EDT Results Only Cardiology [address] [place] [address] Evaluation for watchmann device with hx of pAF Cardiology Comment on above: Evaluation for watchmann device with hx of pAF Start: 07-26-2024 Development of care plan [facility] Start: 07-26-2024 Application of elastic bandage [facility] Start: 07-26-2024 Patient discharge [facility] Start: 07-20-2024 Referral to service [facility] Start: 07-20-2024 [facility] Start: 07-09-2024 [facility] Start: 07-06-2024 Palliative care [facility] Start: 07-05-2024 Application of ice collar, cap or bag [facility] Start: 07-01-2024 Speech therapy assessment [facility] Start: 07-01-2024 Development of care plan [facility] Start: 07-01-2024 Developing a treatment plan [facility] Start: 07-01-2024 Application of intermittent pneumatic compression device [facility] Start: 07-01-2024 Provision of activity privileges [facility] Start: 07-01-2024 End: 07-01-2024 [facility] Start: 06-30-2024 Admission procedure [facility] Start: 06-30-2024 Measuring intake and output [facility] Start: 06-30-2024 Patient referral to dietitian [facility] Start: 06-30-2024 Referral to occupational therapist [facility] Start: 06-30-2024 Referral to service [facility] Start: 06-30-2024 Vital signs measurements [facility] Start: 06-30-2024 [facility] Start: 06-26-2024 End: 06-26-2024 [facility] Start: 06-26-2024 End: 06-26-2024 [facility] Start: 06-15-2024 End: 06-15-2024 Patient encounter procedure 06/15/2024 11:00 AM EST Office Visit Cerebrovascular [address] [place] [id number] Jessa Retana APRN.CORPORATE CONSULTANT [address] [place] [address] 30 day hospital discharge SDH/for stroke and nsgy f/up-per [facility] Comment on above: 30 day hospital discharge SDH/for stroke and nsgy f/up-per [facility] Start: 06-15-2024 Patient discharge [facility] Start: 06-14-2024 End: 06-14-2024 Patient encounter procedure Cat Scan Comment on above: SAH (subarachnoid hemorrhage) (HCC) [I60 .9] 30 day hospital disc harge f/u per tanvi bonilla 05/14/24 Start: 06-14-2024 Development of care plan [facility] Start: 06-13-2024 End: 06-12-2025 CT Head WO contrast CT BRAIN WO IVCON Radiology Routine SAH (subarachnoid hemorrhage) (HCC) Expected: 06/13/2024, Expires: 06/12/2025 [facility] Work Phone: Comment on above: Expected: 06/13/2024, Expires: Start: 06-08-2024 Referral to service [facility] Start: 06-04-2024 [facility] Start: 06-02-2024 [facility] Start: 06-02-2024 [facility] Start: 06-01-2024 Application of elastic bandage [facility] Start: 05-31-2024 Development of care plan [facility] Start: 05-31-2024 Developing a treatment plan [facility] Start: 05-30-2024 Admission procedure [facility] Start: 05-30-2024 Introduction of urinary catheter [facility] Start: 05-30-2024 Measuring intake and output [facility] Start: 05-30-2024 Patient referral to dietitian [facility] Start: 05-30-2024 Referral to occupational therapist [facility] Start: 05-30-2024 Referral to service [facility] Start: 05-30-2024 Vital signs measurements [facility] Start: 05-30-2024 End: 05-30-2024 [facility] Start: 05-29-2024 Removal of urinary catheter [facility] Start: 05-28-2024 Patient discharge [facility] Start: 05-28-2024 Removal of urinary catheter [facility] Start: 05-25-2024 [facility] Start: 05-22-2024 Oxygen therapy [facility] Start: 05-22-2024 [facility] Start: 05-21-2024 [facility] Start: 05-19-2024 [facility] Start: 05-18-2024 Following clinical pathway protocol [facility] Start: 05-18-2024 Insertion of catheter into peripheral vein [facility] Start: 05-18-2024 [facility] Start: 05-16-2024 Application of intermittent pneumatic compression device [facility] Start: 05-16-2024 Recommendation to continue with treatment [facility] Start: 05-16-2024 Referral to service [facility] Start: 05-16-2024 Urinary bladder training [facility] Start: 05-16-2024 Admission procedure [facility] Start: 05-16-2024 Measuring intake and output [facility] Start: 05-16-2024 Patient referral to dietitian [facility] Start: 05-16-2024 Referral to occupational therapist [facility] Start: 05-16-2024 Vital signs measurements [facility] Start: 05-16-2024 [facility] Start: 05-16-2024 Speech therapy assessment [facility] Start: 05-14-2024 End: 05-14-2024 Patient encounter procedure 05/14/2024 4:00 PM EST Office Visit Cardiology [address] [place] [address] Essential (primary) hypertension (Primary Dx) Cardiology Comment on above: Essential (primary) hypertension (Primar y Dx) Start: 05-12-2024 Advance Directive Discussion Advance Directive Discussion [facility] Start: 05-11-2024 [facility] Start: 05-11-2024 Aspiration precautions [facility] Start: 01-11-2024 Covid-19 Vaccine ( season) Covid-19 Vaccine ( season) [facility] Start: 01-11-2024 Covid-19 Vaccine ( season) Covid-19 Vaccine ( season) [facility] Start: 01-11-2024 Influenza vaccination Influenza Vaccine (#1) [facility] Start: 05-12-2023 Advance Directive Discussion Advance Directive Discussion [facility] Start: 05-12-2023 [facility] Start: 04-18-2022 Patient discharge [facility] Start: 04-17-2022 [facility] Start: 04-15-2022 Incentive spirometry [facility] Start: 04-13-2022 Prothrombin time [facility] Work Phone: Start: 04-12-2022 Prothrombin time [facility] Work Phone: Start: 04-11-2022 Consultation for pain [facility] Start: 04-10-2022 Assessment of risk of venous thromboembolism [facility] Start: 04-10-2022 Consultation [facility] Work Phone: Start: 04-10-2022 Insertion of catheter into peripheral vein [facility] Start: 04-10-2022 Oxygen therapy [facility] Work Phone: Start: 04-10-2022 Providing care according to standard [facility] Start: 04-10-2022 Provision of activity privileges [facility] Start: 04-10-2022 Referral to occupational therapist [facility] Start: 04-10-2022 Referral to service [facility] Start: 04-10-2022 [facility] Start: 04-10-2022 Following clinical pathway protocol [facility] Start: 04-10-2022 Verification routine [facility] Work Phone: Start: 04-10-2022 Admission procedure [facility] Start: 04-10-2022 ANES NEUROMD/NTRVRT [facility]/SAC [facility] Start: 04-10-2022 Perq vert agmntj cavity crtj uni/bi cannulj [facility] Start: 03-24-2022 Blood chemistry [facility] Work Phone: Start: 03-21-2022 Prothrombin time [facility] Work Phone: Start: 03-18-2022 Prothrombin time [facility] Work Phone: Start: 03-18-2022 Patient discharge [facility] Start: 03-17-2022 Development of care plan [facility] Start: 03-17-2022 Blood chemistry [facility] Work Phone: Start: 03-15-2022 Developing a treatment plan [facility] Start: 03-14-2022 Prothrombin time [facility] Work Phone: Start: 03-13-2022 [facility] Start: 03-13-2022 Referral to service [facility] Start: 03-12-2022 [facility] Start: 03-12-2022 Blood chemistry [facility] Work Phone: Start: 03-11-2022 Prothrombin time [facility] Work Phone: Start: 03-10-2022 Blood chemistry [facility] Work Phone: Start: 03-07-2022 Prothrombin time [facility] Work Phone: Start: 03-05-2022 Blood chemistry [facility] Work Phone: Start: 03-04-2022 Prothrombin time [facility] Work Phone: Start: 03-03-2022 Blood chemistry [facility] Work Phone: Start: 02-28-2022 Prothrombin time [facility] Work Phone: Start: 02-27-2022 Speech therapy assessment [facility] Start: 02-26-2022 Blood chemistry [facility] Work Phone: Start: 02-25-2022 Prothrombin time [facility] Work Phone: Start: 02-24-2022 Blood chemistry [facility] Work Phone: Start: 02-21-2022 Prothrombin time [facility] Work Phone: Start: 02-19-2022 Verification routine [facility] Work Phone: Start: 02-19-2022 Blood chemistry [facility] Work Phone: Start: 02-18-2022 Prothrombin time [facility] Work Phone: Start: 02-17-2022 Developing a treatment plan [facility] Start: 02-17-2022 Development of care plan [facility] Start: 02-16-2022 End: 02-17-2022 [facility] Start: 02-16-2022 Wound care [facility] Work Phone: Start: 02-16-2022 Admission procedure [facility] Start: 02-16-2022 Measuring intake and output [facility] Start: 02-16-2022 Patient referral to dietitian [facility] Start: 02-16-2022 Referral to occupational therapist [facility] Start: 02-16-2022 Referral to service [facility] Start: 02-16-2022 Vital signs measurements [facility] Start: 02-14-2022 Patient discharge [facility] Start: 02-13-2022 Developing a treatment plan [facility] Start: 02-13-2022 [facility] Work Phone: Start: 02-12-2022 Development of care plan [facility] Start: 02-12-2022 Developing a treatment plan [facility] Start: 02-11-2022 [facility] Start: 02-11-2022 Following clinical pathway protocol [facility] Start: 02-11-2022 Admission procedure [facility] Start: 02-11-2022 Measuring intake and output [facility] Start: 02-11-2022 [facility] 02-11-[facility]22 Referral to occupational therapist [facility] Start: 02-11-2022 Referral to service [facility] Start: 02-11-2022 Vital signs measurements [facility] Start: 02-11-2022 End: 02-11-2022 [facility] Start: 02-11-2022 Patient discharge [facility] Start: 02-11-2022 Continuous positive airway pressure ventilation treatment [facility] Start: 02-10-2022 Admission procedure [facility] Start: 02-09-2022 Following clinical pathway protocol [facility] Start: 02-09-2022 Assessment of risk of venous thromboembolism [facility] Start: 02-09-2022 Insertion of catheter into peripheral vein [facility] Start: 02-09-2022 Oxygen therapy [facility] Start: 02-09-2022 Providing care according to standard [facility] Start: 02-09-2022 Provision of activity privileges [facility] Start: 02-09-2022 Referral to occupational therapist [facility] Start: 02-09-2022 Referral to service [facility] Start: 02-09-2022 [facility] Start: 02-09-2022 Verification routine [facility] Work Phone: Start: 02-09-2022 Admission procedure [facility] Start: 02-09-2022 [facility] Work Phone: Start: 07-25-2021 Patient discharge [facility] Work Phone: Start: 07-25-2021 Oxygen therapy [facility] Work Phone: Start: 07-24-2021 End: 07-25-2021 [facility] Work Phone: Start: 07-24-2021 Ambulation without limitation [facility] Work Phone: Start: 07-24-2021 Assessment of risk of venous thromboembolism [facility] Work Phone: Start: 07-24-2021 Insertion of catheter into peripheral vein [facility] Work Phone: Start: 07-24-2021 Providing care according to standard [facility] Work Phone: Start: 07-24-2021 Referral to gastroenterology service [facility] Work Phone: Start: 07-24-2021 Admission procedure [facility] Work Phone: Start: 07-24-2021 Following clinical pathway protocol [facility] Work Phone: Start: 07-24-2021 [facility] Work Phone: Start: 04-10-2017 End: 04-10-2017 Appointment Appointment [facility] Work Phone: Start: 12-26-2016 End: 12-26-2016 Ecg routine ecg w/least 12 lds w/i&r EKG (In office) [facility] Work Phone: Start: 09-27-2016 End: 12-26-2016 Follow Up Appt 6 months Follow Up Appt 6 months [facility] Work Phone: Start: 09-27-2016 End: 12-26-2016 MMM MMM [facility] Work Phone: Start: 06-28-2016 End: 08-26-2016 INR Coag RelTime (PPP) *PT/INR - Standing Order [facility] Work Phone: Start: 05-15-2016 End: 05-28-2016 INR Coag RelTime (PPP) *PT/INR - Standing Order [facility] Work Phone: Start: 04-04-2016 Screening for osteoporosis Bone Density Screening [facility] Start: 03-14-2016 End: 03-14-2016 *BMP *BMP [facility] Work Phone: Start: 03-14-2016 End: 03-14-2016 *CBC with Differential *CBC with Differential [facility] Work Phone: Start: 03-14-2016 End: 03-14-2016 Follow Up Appt 6 months Follow Up Appt 6 months [facility] Work Phone: Start: 03-14-2016 End: 03-14-2016 MMM MMM [facility] Work Phone: Start: 03-14-2016 End: 03-14-2016 Thyroid stimulating hormone (TSH) *TSH [facility] Work Phone: Start: 09-06-2015 End: 09-06-2015 NUCLEAR DESIGN ENGINEER NUCLEAR DESIGN ENGINEER [facility] Work Phone: Start: 09-06-2015 End: 09-06-2015 Follow Up Appt 6 months Follow Up Appt 6 months [facility] Work Phone: Start: 05-18-2015 End: 08-08-2015 INR Coag RelTime (PPP) *PT/INR - Standing Order [facility] Work Phone: Start: 03-10-2015 End: 03-10-2015 Follow Up Appt 6 months Follow Up Appt 6 months [facility] Work Phone: Start: 03-10-2015 End: 03-10-2015 MMM MMM [facility] Work Phone: Start: 11-28-2014 End: 08-25-2015 INR Coag RelTime (PPP) *PT/INR - Standing Order [facility] Work Phone: Start: 09-20-2014 End: 09-20-2014 Follow Up Appt Other Follow Up Appt Other [facility] Work Phone: Start: 08-11-2014 End: 08-12-2014 *BMP *BMP [facility] Work Phone: Start: 08-11-2014 End: 08-25-2015 *CBC with Differential *CBC with Differential [facility] Work Phone: Start: 08-11-2014 End: 08-12-2014 BNP *Brain Natriuretic Peptide BNP [facility] Work Phone: Start: 08-11-2014 End: 08-11-2014 NUCLEAR DESIGN ENGINEER NUCLEAR DESIGN ENGINEER [facility] Work Phone: Start: 08-11-2014 End: 08-11-2014 Follow Up Appt 1 month Follow Up Appt 1 month [facility] Work Phone: Start: 08-11-2014 End: 08-11-2014 Follow Up Appt 6 months Follow Up Appt 6 months [facility] Work Phone: Start: 08-11-2014 End: 08-12-2014 Magnesium *Magnesium [facility] Work Phone: Start: 08-11-2014 End: 08-11-2014 MMM MMM [facility] Work Phone: Start: 08-11-2014 End: 08-12-2014 Thyroid stimulating hormone (TSH) *TSH [facility] Work Phone: Start: 08-11-2014 End: 08-12-2014 Thyroxine (T4) *T4 (Total) [facility] Work Phone: Start: 07-26-2014 End: 08-11-2014 INR Coag RelTime (PPP) *PT/INR - Standing Order [facility] Work Phone: Start: 06-03-2014 End: 07-26-2014 INR Coag RelTime (PPP) *PT/INR - Standing Order [facility] Work Phone: Start: 03-17-2014 End: 03-17-2014 Follow Up Appt 6 months Follow Up Appt 6 months [facility] Work Phone: Start: 03-17-2014 End: 03-17-2014 MMM MMM [facility] Work Phone: Start: 11-17-2013 End: 11-17-2013 NUCLEAR DESIGN ENGINEER NUCLEAR DESIGN ENGINEER [facility] Work Phone: Start: 11-17-2013 End: 11-17-2013 Follow Up Appt 4 months Follow Up Appt 4 months [facility] Work Phone: Start: 11-17-2013 End: 11-23-2013 INR Coag RelTime (PPP) *PT/INR - Standing Order [facility] Work Phone: Start: 08-18-2013 End: 08-18-2013 24 hour holter monitor 24 hour holter monitor [facility] Work Phone: Start: 08-18-2013 End: 08-18-2013 Follow Up Appt 3 months Follow Up Appt 3 months [facility] Work Phone: Start: 08-18-2013 End: 08-18-2013 MMM MMM [facility] Work Phone: Start: 06-10-2013 DTaP/Tdap/Td Vaccines (1 - Tdap) DTaP/Tdap/Td Vaccines (1 - Tdap) [facility] Start: 06-10-2013 Urine microalbumin profile DTaP,Tdap,Td Vaccine (1 - Tdap) [facility] Start: 2011 RSV High Risk: (Elderly (60+) or Population) (1 - 1-dose 75+ series) RSV High Risk: (Elderly (60+) or Population) (1 - 1-dose 75+ series) [facility] Start: 2011 RSV Vaccine (1 - 1-dose 75+ series) RSV Vaccine (1 - 1-dose 75+ series) [facility] Start: 02-09-2006 Pneumococcal vaccination Pneumococcal Vaccine (2 of 2 - PCV) [facility] Start: 02-09-2006 Pneumococcal Vaccine: 50+ (2 of 2 - PCV) Pneumococcal Vaccine: 50+ (2 of 2 - PCV) [facility] Start: 1986 Shingrix Vaccine (1 of 2) Shingrix Vaccine (1 of 2) [facility] Start: 1986 Zoster Vaccines (1 of 2) Zoster Vaccines (1 of 2) [facility] Start: 1954 Anxiety Screening Anxiety Screening [facility] Start: 1954 Depression Screening Depression Screening [facility] Start: 1954 Diabetes mellitus screening Diabetes Screening [facility] Start: 1936 Lipid panel Lipid Panel [facility] Start: 1936 Medicare Annual Wellness Visit Medicare Annual Wellness Visit (AWV) [facility] Start: 1935 Screening for osteoporosis Bone Density Scan [facility] End: 10-12-2024 Bacteria identified in Urine by Culture [facility] Work Phone: Comment on above: Once (Lab) for 1 Occurrences starting until 10/12/2024 Basic metabolic 2008 panel with ionized calcium - Serum or Plasma [facility] End: 10-13-2024 ECG 12 Lead ECG 12 Lead ECG STAT Once for 1 Occurrences starting 10/13/2024 until 10/13/2024 [facility] Work Phone: Comment on above: Once for 1 Occurrences starting 10/14/19 25 until 10/13/2024 End: 05-14-2025 ECG COMPLETE ECG COMPLETE ECG Routine PAF (paroxysmal atrial fibrillation) (HCC) 1 Occurrences starting 05/14/2024 until 05/14/2025 [facility] Work Phone: Comment on above: 1 Occurrences starting 05/14/2024 until 05/14/2025 End: 10-12-2024 Extra Tubes [facility] Work Phone: Comment on above: Once (Lab) for 1 Occurrences starting until 10/12/2024 End: 10-12-2024 Extra Urine Bah Tube Extra Urine Bah Tube Lab Timed Once for 1 Occurrences starting 10/12/2024 until 10/12/2024 [facility] Work Phone: Comment on above: Once for 1 Occurrences starting 10/13/19 until 10/12/2024 INR in Blood by Coagulation assay [facility] Work Phone: End: 10-12-2024 [facility] Work Phone: Comment on above: Once for 1 Occurrences starting 10/13/19 until 10/12/2024, 1 completed Natriuretic peptide. B prohormone N-Terminal [Mass/volume] in Serum or Plasma [facility] Patient Education [facility] Work Phone: Patient referral [facility] Work Phone: Prothrombin time [facility] Work Phone: Troponin T.cardiac [Mass/volume] in Serum or Plasma by High sensitivity method [facility] End: 10-12-2024 Urinalysis complete W Reflex Culture panel - Urine [facility] Service Area Work Phone: Comment on above: Once (Lab) for 1 Occurrences starting until 10/12/2024 Urine culture Urine Culture [facility] Work Phone: Urine culture [facility] Immunizations Immunization Date Immunization Notes Care Provider Gilson soriano 09-09-2024 pneumococcal polysaccharide vaccine, [address] Bridget Swenson MD Work Phone: [facility] 02-03-2024 influenza, seasonal, injectable, preservative free Dr. Bridget Swenson MD Work Phone: [facility] 02-19-2022 Xiang Pugh Bivale nt Booster Dr. Doyle Swenson Work Phone: [facility] 02-08-2022 influenza, injectabl e, quadrivalent, preservative free Dr. Doyle Swenson Work Phone: [facility] 02-08-2022 influenza, seasonal, injectable Dr. Doyle Swenson Work Phone: [facility] 08-11-2021 Xiang (Gabriellea) Dr. Hermann Swenson Work Phone: [facility] 03-16-2021 Covid (Moderna) Dr. Hermann Swenson Work Phone: [facility] 02-13-2021 influenza, injectabl e, quadrivalent, preservative free Dr. Doyle Swenson Work Phone: [facility] 02-13-2021 influenza, seasonal, injectable Dr. Doyle Swenson Work Phone: [facility] 07-07-2020 Covid (Moderna) Dr. Hermann Swenson Work Phone: [facility] 06-09-2020 Covid (Moderna) Dr. Hermann Swenson Work Phone: [facility] 02-03-2018 influenza, injectabl e, quadrivalent, preservative free Dr. Doyle Swenson Work Phone: [facility] 02-03-2018 influenza, seasonal, injectable Dr. Doyle Swenson Work Phone: [facility] 06-25-2017 tetanus toxoid, redu pat diphtheria toxoid, and acellular pertussis vaccine, adsorbed Dr. Doyle Swenson Work Phone: [facility] 01-15-2017 influenza, injectabl e, quadrivalent, preservative free Dr. Doyle Swenson Work Phone: [facility] 01-15-2017 influenza, seasonal, injectable Dr. Doyle Swenson Work Phone: [facility] 01-30-2016 influenza, injectabl e, quadrivalent, preservative free Dr. Doyle Swenson Work Phone: [facility] 01-30-2016 influenza, seasonal, injectable Dr. Doyle Swenson Work Phone: [facility] 03-30-2015 pneumococcal conjuga te vaccine, [address] Doyle Swenson Work Phone: [facility] 03-06-2015 influenza, injectabl e, quadrivalent, preservative free Dr. Doyle Swenson Work Phone: [facility] 03-06-2015 influenza, seasonal, injectable Dr. Doyle Swenson Work Phone: [facility] 03-01-2015 influenza, injectabl e, quadrivalent, preservative free Dr. Doyle Swenson Work Phone: [facility] 03-01-2015 influenza, seasonal, injectable Dr. Doyle Swenson Work Phone: [facility] 01-12-2014 influenza, injectabl e, quadrivalent, preservative free Dr. Doyle Swenson Work Phone: [facility] 01-12-2014 influenza, seasonal, injectable Dr. Doyle Swenson Work Phone: [facility] 01-12-2014 influenza virus vaccine, unspecified formulation Norma Andrysek TUGGER OPERATOR.CORPORATE CONSULTANT Work Phone: [facility] 06-09-2013 tetanus and diphther ia toxoids, adsorbed, preservative free, for adult use (2 Lf of tetanus toxoid and 2 Lf of diphtheria toxoid) Norma Andrysek TUGGER OPERATOR.CORPORATE CONSULTANT Work Phone: [facility] 02-13-2013 influenza virus vaccine, unspecified formulation Norma Andrysek TUGGER OPERATOR.CORPORATE CONSULTANT Work Phone: [facility] 02-08-2012 influenza virus vaccine, unspecified formulation Norma Andrysek TUGGER OPERATOR.CORPORATE CONSULTANT Work Phone: [facility] 02-28-2011 influenza virus vaccine, unspecified formulation Norma Andrysek TUGGER OPERATOR.CORPORATE CONSULTANT Work Phone: [facility] 02-26-2010 influenza virus vaccine, unspecified formulation Norma Andrysek TUGGER OPERATOR.CORPORATE CONSULTANT Work Phone: [facility] 03-18-2008 influenza virus vaccine, unspecified formulation Norma Andrysek TUGGER OPERATOR.CORPORATE CONSULTANT Work Phone: [facility] Work Phone: 03-11-2007 influenza virus vaccine, unspecified formulation Norma Moon APRN.CORPORATE CONSULTANT Work Phone: [facility] Work Phone: 02-26-2005 influenza virus vaccine, unspecified formulation Norma Moon APRN.CORPORATE CONSULTANT Work Phone: [facility] 02-09-2005 pneumococcal polysaccharide vaccine, 23 valent Norma Moon APRN.CORPORATE CONSULTANT Work Phone: [facility] 02-22-2004 influenza virus vaccine, unspecified formulation Cari Wong MD, PhD Work Phone: [facility] 05-12-2003 tetanus and diphther ia toxoids, adsorbed, preservative free, for adult use (2 Lf of tetanus toxoid and 2 Lf of diphtheria toxoid) Norma Moon APRN.[facility] Work Phone: [facility] Payers Date Payer Category Payer Self-pay [id number] 2018 [facility] DICARE SUPPLEMENT [id number] 15 2018 Medicare supplementa l policy (as second payer) ANTHEM MEDICARE SELECT SUPPLEMENT [id number] 315 2012 Unknown [id number] 2004 Unknown [id number] 1.13.15 [id number] 2004 Unknown [id number] 2001 Medicare [id number]. 1.13.15 [id number] 2001 Medicare [id number] 2001 Medicare [id number] 1936 Unknown [id number] 2.16.840.1.742546.3.57 9.2.1243 Unknown [id number] 2.16.840.1.535082.3.57 9.2.462 Unknown [id number] 2.16.840.1.716451.3.57 9.2.462 Unknown [id number] 2.16.840.1.646285.3.57 9.2.462 Unknown [id number] 2.16.840.1.306309.3.57 9.2.462 Unknown [id number] 2.16.840.1.826197.3.57 9.2.462 Unknown [id number] 2.16.840.1.325417.3.57 9.2.462 Unknown [id number] 2.16.840.1.373381.3.57 9.2.462 Unknown [id number] 2.16.840.1.544611.3.57 9.2.462 Unknown [id number] 2.16.840.1.981801.3.57 9.2.462 Unknown [id number] 2.16.840.1.694534.3.57 9.2.462 Unknown [id number] 2.16.840.1.605706.3.57 9.2.462 Unknown [id number] 2.16.840.1.163578.3.57 9.2.462 Unknown [id number] 2.16.840.1.127928.3.57 9.2.462 Unknown [id number] 2.16.840.1.607298.3.57 9.2.462 Unknown [id number] 2.16.840.1.321235.3.57 9.2.462 Unknown [id number] 2.16.840.1.089871.3.57 9.2.462 Unknown [id number] 2.16.840.1.168881.3.57 9.2.462 Unknown [id number] 2.16.840.1.506314.3.57 9.2.462 Unknown [id number] 2.16.840.1.805000.3.57 9.2.462 Unknown [id number] 2.16.840.1.869603.3.57 9.2.462 Unknown [id number] 2.16.840.1.550718.3.57 9.2.462 Unknown [id number] 2.16.840.1.274647.3.57 9.2.462 Unknown [id number] 2.16.840.1.607575.3.57 9.2.462 Unknown [id number] 2.16.840.1.209676.3.57 9.2.462 Unknown [id number] 2.16.840.1.340391.3.57 9.2.462 Unknown [id number] 2.16.840.1.249269.3.57 9.2.462 Unknown [id number] 2.16.840.1.124909.3.57 9.2.462 Unknown [id number] 2.16.840.1.047708.3.57 9.2.462 Unknown [id number] 2.16.840.1.102839.3.57 9.2.462 Unknown [id number] 2.16.840.1.364209.3.57 9.2.462 Unknown [id number] 2.16.840.1.651449.3.57 9.2.462 Unknown [id number] 2.16.840.1.456595.3.57 9.2.462 Unknown [id number] 2.16.840.1.456720.3.57 9.2.462 Unknown [id number] 2.16.840.1.986626.3.57 9.2.462 Unknown [id number] 2.16.840.1.387031.3.57 9.2.462 Unknown [id number] 2.16.840.1.225183.3.57 9.2.462 Unknown [id number] 2.16.840.1.773250.3.57 9.2.462 Unknown [id number] 2.16.840.1.675542.3.57 9.2.462 Unknown [id number] 2.16.840.1.299918.3.57 9.2.462 Unknown [id number] 2.16.840.1.826577.3.57 9.2.462 Unknown [id number] 2.16.840.1.614068.3.57 9.2.462 Unknown [id number] 2.16.840.1.764791.3.57 9.2.462 Unknown [id number] 2.16.840.1.488856.3.57 9.2.462 Unknown [id number] 2.16.840.1.249854.3.57 9.2.462 Unknown [id number] 2.16.840.1.398778.3.57 9.2.462 Unknown [id number] 2.16.840.1.298471.3.57 9.2.462 Unknown [id number] 2.16.840.1.226065.3.57 9.2.462 Unknown [id number] 2.16.840.1.718507.3.57 9.2.462 Unknown [id number] 2.16.840.1.306623.3.57 9.2.462 Unknown [id number] 2.16.840.1.017157.3.57 9.2.462 Unknown [id number] 2.16.840.1.223671.3.57 9.2.462 Unknown [id number] 2.16.840.1.030640.3.57 9.2.462 Social History Date Type Detail Facility [facility] Work Phone: Start: 07-24-2021 End: 05-12-2023 Tobacco smoking status NEIS Unknown if ever smoked [facility] Start: 03-28-2019 None [facility] Start: 03-28-2019 With Family [facility] Start: 1935 Sex Assigned At Female W [facility] Start: 10-17-2010 End: 11-17-2024 Tobacco smoking status NHIS Never smoked tobacco [facility] Start: 10-17-2010 Tobacco use and exposure Smokeless tobacco non-user [facility] Start: 12-26-2021 End: 05-14-2024 Alcoholic beverage intake Current non-drinker of alcohol (finding) [facility] Start: 05-14-2024 End: 06-27-2024 History of Social function [facility] Start: 05-14-2024 End: 06-27-2024 Tobacco use panel [facility] Subtotal = 3 or greater suggests DEPRESSION 0 [facility] Start: 1935 Sex assigned at Not on file [facility] Has the electric, gas, oil, or water company threatened to shut off services in your home in past 12Mo No [facility] (I/We) worried whether (my/our) food would run out before (I/we) got money to buy more. Never true [facility] Start: 07-26-2024 End: 08-30-2024 Sex Female (finding) [facility] Start: 08-31-2024 Non-smoker [facility] Start: 10-02-2024 End: 10-13-2024 Exposure to SARS-CoV-2 (event) Unable to assess [facility] Work Phone: NEGATED: Highlighted row [facility] Medical Equipment Procedure Code Equipment Code [...] Assessment Result Facility 10-09-2024 Functional status Chair [facility] Work Phone: 09-03-2024 Functional status Ambulates [facility] Work Phone: 08-31-2024 Functional status Chair [facility] Work Phone: 07-26-2024 Functional status Ambulates;Up ad ken [facility] Work Phone: 06-15-2024 Functional status Up ad ken;Chair [facility] Work Phone: 05-30-2024 Functional status With Assist of [address] [facility] Work Phone: 05-27-2024 Functional status Bathroom Privilege [facility] Work Phone: 05-16-2024 Are you deaf, or do you have serious difficulty hearing Yes 05/16/2024 1:06 PM Twin Norwood RN Yes [facility] 05-16-2024 Are you blind, or do you have serious difficulty seeing, even when wearing glasses No 05/16/2024 1:06 PM Twin Norwood RN No [facility] 05-16-2024 Do you have serious difficulty walking or climbing stairs Yes 05/16/2024 1:06 PM Twin Norwood RN Yes [facility] 05-16-2024 Do you have difficul ty dressing or bathing Yes 05/16/2024 1:06 PM Twin Norwood RN Yes [facility] 05-16-2024 Because of a physica l, mental, or emotional condition, do you have difficulty doing errands alone such as visiting a physician's office or shopping Yes 05/16/2024 1:06 PM Twin Norwood RN Yes [facility] 04-18-2022 Functional status Bathroom Privilege [facility] Work Phone: 04-11-2022 Functional status Ambulates [facility] Work Phone: 03-18-2022 Functional status Up ad ken [facility] Work Phone: 02-18-2022 Functional status Ambulates [facility] Work Phone: 02-14-2022 Functional status Chair [facility] Work Phone: 02-11-2022 Functional status Ambulates;Marques r;Bedside Commode [facility] Work Phone: 07-25-2021 Functional status Ambulates [facility] Work Phone: Mental Status Date Assessment Result Facility 11-17-2024 Cognitive function Voice/Name [facility] Work Phone: 10-09-2024 Cognitive function Voice/Name [facility] Work Phone: 10-03-2024 Cognitive function Awake;Alert;F ollows Commands [facility] Work Phone: 09-03-2024 Cognitive function Voice/Name [facility] Work Phone: 08-31-2024 Cognitive function Voice/Name [facility] Work Phone: 08-30-2024 Cognitive function Awake;Alert [facility] Work Phone: 07-26-2024 Cognitive function Voice/Name [facility] Work Phone: 07-06-2024 Cognitive function Appropriate [facility] Work Phone: 06-15-2024 Cognitive function Voice/Name [facility] Work Phone: 06-10-2024 Cognitive function Appropriate;Cooperativ e [facility] Work Phone: 05-30-2024 Cognitive function Voice/Name [facility] Work Phone: 05-16-2024 Because of a physica l, mental, or emotional condition, do you have serious difficulty concentrating, remembering, or making decisions No 05/16/2024 1:06 PM Twin Norwood, ALBERT [facility] 05-11-2024 Cognitive function Awake;Alert;A ppropriate;Fol lows Commands [facility] Work Phone: 05-12-2023 Cognitive function Level Of Cons ciousness Awake;Alert;Appropriate;Fol lows Commands [facility] Work Phone: 04-18-2022 Cognitive function Voice/Name [facility] Work Phone: 04-11-2022 Cognitive function Voice/Name [facility] Work Phone: 03-18-2022 Cognitive function Voice/Name [facility] Work Phone: 03-17-2022 Cognitive function Appropriate;Cooperativ [facility] Work Phone: 02-18-2022 Cognitive function Demonstrates ability to follow instructions/comprehend [facility] Work Phone: 02-14-2022 Cognitive function Voice/Name [facility] Work Phone: 02-11-2022 Cognitive function Voice/Name [facility] Work Phone: 02-09-2022 Cognitive function Level Of Cons ciousness Awake;Alert;Appropriate;Fol lows Commands [facility] Work Phone: 07-25-2021 Cognitive function Appropriate;Cooperativ [facility] Work Phone: 07-25-2021 Cognitive function Arousable To Voice/Nam e [facility] Work Phone: Clinical Notes 05-12-2023 to 11-17-2024 Nichole Guerra, DO - 10/13/2024 12:35 AM EDTMjessica Guerra, DO - 10/13/2024 12:35 AM EDT Note Date & Type Note Facility 11-17-2024 Radiology Diagnostic study note [facility] 10-13-2024 Physician Emergency department Note HPI Chief Complaint Patient presents with Altered Mental Status Via AFD from [facility]. Facility RN reports she woke up yelling/flailing. LKW 2030 when staff put her to bed. Mari [facility] met in [facility] 89-year-old female presents from [facility] very agitated and upset. Symptoms started approximately [...] [MS] Nichole Guerra DO Diagnoses as of 10/13/2443 Altered mental status, unspecified altered mental status type UTI (urinary tract infection), bacterial No data recorded [place] Coma Scale Score: 13 (10/12/24 2313 : Branden Mcclain, ALBERT) Medical Decision Making 1 take medication as [...] Not on file Nichole Guerra DO 10/13/2444 [facility] Work Phone: 10-13-2024 Emergency department Note HPI Chief Complaint Patient presents with Altered Mental Status Via AFD from [facility]. Facility RN reports she woke up yelling/flailing. LKW 2029 when staff put her to bed. Mari URBAN met in [facility] 89-year-old female presents from [facility] very agitated and upset. Symptoms started approximately [...] Social History[4] Physical Exam ED Triage Vitals [10/12/244] Temperature Heart Rate Respirations BP 36.6 C [...] Course & MDM ED Course as of 10/13/244 FriOct 13, 2024 0036 Twelve-lead EKG interpreted by myself at 2320 1 normal sinus rhythm at 91 2 right bundle branch block 3 left axis deviation [MS] ED Course User Index [MS] Nichole Guerra DO Diagnoses as of 10/13/24 0044 Altered mental status, unspecified altered mental status type UTI (urinary tract infection), bacterial No data recorded [place] Coma Scale Score: 13 (10/12/24 2313 : [...] use: Not on file Nichole Guerra DO 10/13/24 0045 documented in this encounter [facility] Work Phone: 10-09-2024 Discharge summary Note Date/Time October 09, 2024 11:02am [facility] Medical Records Department [address] [place] [address] Discharge Summary 10/09/24 0957 MR#: [id number] Acct: [id number] Name: JOYCE SOLOMON Rep #:[id number] : 1935 89 From: Santino kong DO PCP: Dr. Bridget Swenson MD Status :ADM IN Location: [place] [address] Providers Date of Admission: 10/03/24 Date of [...] mg/mL subcutaneous syringe (Prolia) 60 mg subcut [id number] osteoporosis 10/08/19 aspirin 81 mg chewable tablet [...] is an 89-year-old female who presented to [facility] ED on 10/03/2024 with worsening confusion [...] home alone. Was discharged to SNF at [place] [facility] after recent hospitalization in late August. Therapy [...] 10/07/24 14:11 SB (Rec: 10/07/24 14:11 SB [id number]) Nutrition Malnutrition Evidence of Yes Malnutrition Exists [...] Gluten Free diet for Recommendations/ allergies per SECTION HAND HELPER consistency/texture recommendations. Changes Continue chocolate magic cup [...] Prolia 60 mg/mL syringe 60 mg SC [id number] Patient Comments: due February Rx Instructions: due [...] in before D/C Order can be placed): [facility] Charges/Coding Visit Charges Inpatient E&M: 38401 Disch Hosp >30min 10/09/24 1102 <Electronically signed by Santino Haas DO> Cosigner Signature (if applicable): CC: Dr. Santino Haas DO; Dr. Bridget Swenson MD~ Signed [facility] Work Phone: 1(934) 804-896905-31-2025 Discharge summary Author Santino Haas [facility] Note Date/Time October 09, 2024 10:05 am [facility] Medical Records Department [address] [place] [address] Transfer to [facility] MR#: [id number] Acct: [id number] Name: JOYCE SOLOMON Rep #:[id number] : 1935 89 From: Santino kong DO PCP: Dr. Bridget Swenson MD Status :ADM IN Certification of patient admission REQUIRED AT TIME OF ADMISSION. I CERTIFY THAT POST-HOSPITAL ECF SERVICES ARE REQUIRED TO BE GIVEN ON AN IN-PATIENT BASIS BECAUSE OF THE ABOVE NAMED PATIENT'S NEED FOR FPC CARE ON A CONTINUING BASIS FOR THE CONDITION(S) FOR WHICH HE/SHE WAS RECEIVING IN-PATIENT HOSPITAL SERVICES PRIOR TO HIS/HER TRANSFER TO THE [facility]. 10/09/24 1005<Electronically signed by Santino Haas DO> Diet Diet Order/Speech Therapy: INPATIENT Hospital Diet / Speech Therapy Order(s) 10/07/24 15:51 Diet: Regular - General Food consistency:: Easy to Chew Dietary Modifications:: Gluten Free Type of Dietary Supplement:: [place] Breakfast Diet Comments: Direct sup, meds whole [...] is an 89-year-old female who presented to [facility] ED on 10/03/2024 with worsening confusion [...] home alone. Was discharged to SNF at [place] [facility] after recent hospitalization in late August. Therapy [...] Regular, Gluten Free diet for allergies per SECTION HAND HELPER consistency/texture recommendations. Continue chocolate magic cup with [...] Prolia 60 mg/mL syringe 60 mg SC [id number] Patient Comments: due February Rx Instructions: due [...] in before D/C Order can be placed): [facility] (1) Toxic encephalopathy Qualifiers: Toxic encephalopathy cause: unspecified toxin Qualified Code(s): G92.9 - Unspecified toxic encephalopathy 10/09/24 1005 <Electronically signed by Santino Haas DO> Cosigner Signature (if applicable): CC: Dr. Bridget Swenson MD; Dr. Juan José Suarez DO ~ [facility] Work Phone: 1(817) 420-667605-31-2025 [facility]05-30-2025 Progress note Author Santino Haas [facility] Note Date/Time October 08, 2024 2:38p [facility] Medical Records Department [address] [place] [address] Progress Note - Hospitalist 10/08/24 1152 MR#: [id number] Acct: [id number] Name: JOYCE SOLOMON Rep #:[id number] : 1935 89 From: Santino kong DO PCP: Dr. Bridget Swenson MD Status :ADM IN Location: [place] [address] Reason for Visit Reason for Visit: Diagnoses [...] 10/07/24 14:11 SB (Rec: 10/07/24 14:11 SB [id number]) Nutrition Malnutrition Evidence of Yes Malnutrition Exists [...] Gluten Free diet for Recommendations/ allergies per SECTION HAND HELPER consistency/texture recommendations. Changes Continue chocolate magic cup [...] is an 89-year-old female who presented to [facility] ED on 10/03/2024 with worsening confusion [...] at home alone. Was dischargedto SNF at [facility] after recent hospitalization in late August. Therapy scores borderline here; planning for SNF in [facility] on discharge. Medically ready for discharge [...] 35 minutes. Charges/Coding Visit Charges Inpatient E&M: 27079 Subs Hosp L2 10/08/24 1438 <Electronically signed by Santino Haas DO> Cosigner Signature (if applicable): CC: ~ Signed [facility] Work Phone: 1(650) 533-330505-29-2025 Progress note Author Santino Haas [facility] Note Date/Time October 07, 2024 12:42 pm [facility] Medical Records Department [address] [place] [address] Progress Note - Hospitalist 10/07/24 1038 MR#: [id number] Acct: [id number] Name: JOYCE SOLOMON Rep #:[id number] : 1935 89 From: Santino kong DO PCP: Dr. Bridget Swenson MD Status :ADM IN Location: [place] [address] Reason for Visit Reason for Visit: Diagnoses [...] Freq: Status: Active Protocol: Document 10/04/24 15:46 [facility] (Rec: 10/04/24 15:46 [facility] [id number]) Nutrition Malnutrition Evidence of Yes Malnutrition Exists [...] is an 89-year-old female who presented to [facility] ED on 10/03/2024 with worsening confusion [...] at home alone. Was dischargedto SNF at [facility] after recent hospitalization in late August. Therapy scores borderline here; planning for SNF in [facility] on discharge. Medically ready for discharge [...] 35 minutes. Charges/Coding Visit Charges Inpatient E&M: 71562 Subs Hosp L2 10/07/24 1247 <Electronically signed by Santino Haas DO> Cosigner Signature (if applicable): CC: ~ Signed [facility] Work Phone: 1(162) 241-979005-28-2025 Progress note Author Santino [facility] Note Date/Time October 06, 2024 2:27p [facility] Medical Records Department [address] [place] [address] Progress Note - Hospitalist 10/06/24 1354 MR#: [id number] Acct: [id number] Name: JOYCE SOLOMON Rep #:[id number] : 1935 89 From: Santino kong DO PCP: Dr. Bridget Swenson MD Status :ADM CRISTIANA Location: [place] [address] Reason for Visit Reason for Visit: Diagnoses [...] 10/04/24 15:46 VIJAYA (Rec: 10/04/24 15:46 VIJAYA [id number]) Nutrition Malnutrition Evidence of Yes Malnutrition Exists [...] is an 89-year-old female who presented to [facility] ED on 10/03/2024 with worsening confusion [...] at home alone. Was dischargedto SNF at [facility] after recent hospitalization in late August. Therapy [...] DNR CCA, DNI Expected disposition: Home with [facility] versus SNF, 1 to 2 days *Patient notably was admitted under observation status. However, given her acute stroke as above and persistent encephalopathy, will transition patient to inpatient status at this time. Total clinical time spent by myself addressing the patient's medical issues, reviewing all the data, and collaborating with patient's care team: 35 minutes. Charges/Coding Visit Charges Inpatient E&M: 75147 Subs Hosp L2 10/06/24 1427 <Electronically signed by Santino Haas DO> Cosigner Signature (if applicable): CC: ~ Signed [facility] Work Phone: 1(477) 730-407405-27-2025 Progress note Author Santino [facility] Note Date/Time October 05, 2024 1:12p m [facility] Medical Records Department [address] [place] [address] Progress Note - Hospitalist 10/05/24 1308 MR#: [id number] Acct: [id number] Name: JOYCE SOLOMON Rep #:[id number] : 1935 89 From: Santino kong DO PCP: Dr. Bridget Swenson MD Status :ADM CRISTIANA Location: [place] [address] Reason for Visit Reason for Visit: Diagnoses [...] 85 14 148/59 H 93 Room Air 05/27/25 10:10 10/05/24 10:13 10/05/24 10:10 10/05/24 10:13 [...] Document 10/04/24 15:46 VIJAYA (Rec: 10/04/24 15:46 ANTHONY [id number]) Nutrition Malnutrition Evidence of Yes Malnutrition Exists [...] is an 89-year-old female who presented to [facility] ED on 10/03/2024 with worsening confusion [...] at home alone. Was dischargedto SNF at [facility] after recent hospitalization in late August. Therapy [...] CCA, DNI Expected disposition: Likely home with [facility], 1 to 2 days Total clinical time spent by myself addressing the patient's medical issues, reviewing all the data, and collaborating with patient's care team: 35 minutes. Charges/Coding Visit Charges Inpatient E&M: 91802 Subs Hosp L2 10/05/24 1312 <Electronically signed by Santino Haas DO> Cosigner Signature (if applicable): CC: ~ Signed [facility] Work Phone: 1(803) 842-572505-27-2025 Consult note Author Robert Castillo [facility] Note Date/Time October 05, 2024 1:05p [facility] Medical Records Department [address] [place] [address] Consultation - Neurology 10/05/24 1248 MR#: [id number] Acct: [id number] Name: JOYCE SOLOMON Rep #:[id number] : 1935 89 From: Robert Castillo MD PCP: Dr. Bridget Swenson MD Status :ADM CRISTIAAN Location: [place] [address] Assessment and Plan: Neuro Assessment/Plan JOYCE SOLOMON [...] wall motion abnormalities of the LV 5. PT/OT/SECTION HAND HELPER evaluation 6. Normotension is the goal 7. [...] LVO. Telestroke was consulted for further recommendations. [facility] Medical History (Updated 10/04/24 @ 03:17 by [...] denosumab 60 mg/mL subcutaneous 60 mg subcut [id number] osteoporosis 10/08/19 08/24/21 History syringe (Prolia) aspirin [...] History adopted: No household members: [facility] number of children: 2 current occupational status: retired current occupational exposures/hazards: No pets and animals: No leisure activities: reading and other history of recent travel: Yes ([employer] in [place]) Smoking Status: Never smoker alcohol intake: never [...] Freq: Status: Active Protocol: Document 10/04/24 15:46 ANTHONY (Rec: 10/04/24 15:46 [facility] [id number]) Nutrition Malnutrition Evidence of Yes Malnutrition Exists [...] mls @ 15 mls/hr 10/04/24 02:54 IV .[id number] PRN Saline Flush Sodium Chloride 250 mls @ 15 mls/hr 10/04/24 02:54 IV .[id number] PRN Additional IVPB Infusion Losartan Potassium 100 [...] applicable): CC: Dr. Bridget Swenson MD~ Signed [facility] Work Phone: 1(444) 518-200705-26-2025 Progress [facility] Note Date/Time October 04, 2024 1:56p [facility] Medical Records Department [address] [place] [address] Progress Note - Hospitalist 10/04/24 1035 MR#: [id number] Acct: [id number] Name: JOYCE SOLOMON Rep #:[id number] : 1935 89 From: Santino kong DO PCP: Dr. Bridget Swenson MD Status :ADM CRISTIANA Location: [place] [address] Reason for Visit Reason for Visit: Diagnoses [...] 79.6 H, Lymph % (Auto) 9.6 L, [place] % (Auto) 9.8, Eos % (Auto) 0.1, [...] Clarity Clear, Urine pH 6.5, Ur Specific [place] 1.010, Urine Protein 30 H, Urine Glucose [...] 71.3 H, Lymph % (Auto) 14.8 L, [place] % (Auto) 11.6 H, Eos % (Auto) [...] ACUTE CERVICAL FRACTURE. DEGENERATIVE CHANGES. Reading Location: [facility] Chest CT 10/03/24 19:44 IMPRESSION: 1. No acute thoracic finding. 2. Chronic findings as described. Reading Location: [facility] Brain CT 10/03/24 19:45 IMPRESSION: No acute intracranial finding. Reading Location: [facility] Hip/Pelvis X-Ray 10/03/24 21:28 IMPRESSION: DEGENERATIVE OSTEOARTHROSIS. NO ACUTE FINDINGS. Reading Location: [facility] Rhythm Strip Rhythm Strip: Sinus Rhythm Rate: [...] is an 89-year-old female who presented to [facility] ED on 10/03/2024 with worsening confusion [...] at home alone. Was dischargedto SNF at [facility] after recent hospitalization in late August. Therapy [...] CCA, DNI Expected disposition: Likely home with [facility], 1 to 2 days Total clinical time spent by myself addressing the patient's medical issues, reviewing all the data, and collaborating with patient's care team: 35 minutes. Charges/Coding Visit Charges Inpatient E&M: 49798 Subs Hosp L2 10/04/24 1356 <Electronically signed by Santino Haas DO> Cosigner Signature (if applicable): CC: ~ Signed [facility] Work Phone: 1(345) 327-334705-26-2025 History and physical note Author Juan José Thorpe [facility] Note Date/Time October 04, 2024 6:26a m [facility] Medical Records Department [address] [place] [address] H&P Exam - Hospitalist 10/03/24 9985 MR#: [id number] Acct: [id number] Name: JOYCE SOLOMON Rep #:[id number] : 1935 89 From: Juan José Butler DO PCP: Dr. Bridget Swenson MD Status :ADM CRISTIANA Location: [place] [address] HPI - General General Date of Admission: [...] for PFO with patient recommendedto go to fpc facility - but with patient refusing and opting to return home who then returned for another admission from September 01, 2024 to 2024 for treatment of hypertensive urgency with altered mental status who now re-presents to [facility] ER after family noted worsening confusion. Unfortunately, this patient has been admitted previously for similar complaint with complete stroke workup done but with patient unwilling to go to senior care and family unable understand patient is no longer able to live independently resulting in a pattern of serial readmission. According to the records her family was concerned about her ability to live at home alone becausewhen they went to check on her earlier today she was speaking "gibberish" when home health arrived. She had recently been at [facility] but apparently could not afford to stay [...] expected to be less than 2 midnights. [facility] Medical History (Updated 10/04/24 @ 03:17 by [...] denosumab 60 mg/mL subcutaneous 60 mg subcut [id number] osteoporosis 10/08/19 08/24/21 History syringe (Prolia) aspirin [...] Reaction Status Date / Time cefazolin (From Anc) Allergy Severe Swelling Verified 10/03/24 17:47 silk [...] History adopted: No household members: none housing: [facility] number of children: 2 current occupational status: retired current occupational exposures/hazards: No pets and animals: No leisure activities: reading and other history of recent travel: Yes (concert in [place]) Smoking Status: Never smoker alcohol intake: never [...] 79.6 H, Lymph % (Auto) 9.6 L, [place] % (Auto) 9.8, Eos % (Auto) 0.1, [...] Clarity Clear, Urine pH 6.5, Ur Specific Sweet[place] 1.010, Urine Protein 30 H, Urine Glucose [...] ACUTE CERVICAL FRACTURE. DEGENERATIVE CHANGES. Reading Location: [facility] Chest CT 10/03/24 19:44 IMPRESSION: 1. No acute thoracic finding. 2. Chronic findings as described. Reading Location: [facility] Brain CT 10/03/24 19:45 IMPRESSION: No acute intracranial finding. Reading Location: [facility] Hip/Pelvis X-Ray 10/03/24 21:28 IMPRESSION: DEGENERATIVE OSTEOARTHROSIS. NO ACUTE FINDINGS. Reading Location: [facility] Assessment & Plan Assessment/Plan (1) Toxic encephalopathy: [...] for new neurologic insult. We will minimize SAND TESTER- active medications. Finally, we will consult PT/OT [...] Altered Mental Status who was discharged to [facility] with patient unable to afford [...] forPFO with patient recommended to go to fpc facility - but with patient refusing and [...] 85 minutes. Charges/Coding Visit Charges OBSV E&M: 05379 Observ/hosp same date L3 10/04/24 0626 <Electronically signed by Juan José Suarez DO> Cosigner Signature (if applicable): CC: Dr. Bridget Swenson MD; Dr. Juan José Suarez DO~ Signed [facility] Work Phone: 1(801) 944-666205-26-2025 Discharge summary Author Diana Snow [facility] Note Date/Time October 04, 2024 12:14 am [facility] Medical Records Department [address] [place] [address] Emergency Department Summary 10/03/24 MR#: [id number] Acct: [id number] Name: JOYCE SOLOMON Rep #:[id number] : [...] and patient was apparently speaking gibberish when [employer] [facility] arrived. She had recently been in at [facility] but apparently could not afford it. [...] is significantly worsenedover the past few days. [facility] Medical History Aphasia History of hemorrhagic cerebrovascular [...] denosumab 60 mg/mL subcutaneous 60 mg subcut [id number] osteoporosis 10/08/19 08/24/21 History syringe (Prolia) aspirin [...] History adopted: No household members: none housing: [facility] number of children: 2 current occupational status: retired current occupational exposures/hazards: No pets and animals: No leisure activities: reading and other history of recent travel: Yes ([employer] in [place]) Smoking Status: Never smoker alcohol intake: never [...] 79.6 H Lymph % (Auto) 9.6 L [place] % (Auto) 9.8 Eos % (Auto) 0.1 [...] Clarity Clear Urine pH 6.5 Ur Specific Sweetwater 1.010 Urine Protein 30 H Urine Glucose [...] ACUTE CERVICAL FRACTURE. DEGENERATIVE CHANGES. Reading Location: [id number] Chest CT 10/03/24 19:44 IMPRESSION: 1. No acute thoracic finding. 2. Chronic findings as described. Reading Location: [facility] Brain CT 10/03/24 19:45 IMPRESSION: No acute intracranial finding. Reading Location: [facility] Hip/Pelvis X-Ray 10/03/24 21:28 IMPRESSION: DEGENERATIVE OSTEOARTHROSIS. NO ACUTE FINDINGS. Reading Location: [facility] Rhythm Strip Rhythm Strip: Sinus Rhythm Rate: [...] Prolia 60 mg/mL syringe 60 mg SC [id number] Patient Comments: due February Rx Instructions: due [...] MD [Primary Care Provider] - Print Language: [place] Disposition Disposition: Acute Care Hospital [facility] What to do if you have Problems For any increased pain, shortness of breath, bleeding, nausea or vomiting, chestpain, or any unexpected problems, contact your Primary Care Provider. Call [facility] ([phone]) or report to the closest Emergency Room. Call 911 if necessary. 10/04/24 0014 <Electronically signed by Diana Snow DO> Cosigner Signature (if applicable): CC: Dr. Bridget Swenson MD ~ Signed [facility] Work Phone: 1(828) 914-428105-26-2025 Discharge summary Author Diana [facility] Note Date/Time October 04, 2024 12:14 am [facility] Medical Records Department [address] [place] [address] Emergency Department Summary 10/03/24 MR#: [id number] Acct: [id number] Name: JOYCE SOLOMON Rep #:[id number] : [...] arrived. She had recently been in at [facility] but apparently could not afford it. [...] is significantly worsenedover the past few days. [facility] Medical History Aphasia History of hemorrhagic cerebrovascular [...] denosumab 60 mg/mL subcutaneous 60 mg subcut [id number] osteoporosis 10/08/19 08/24/21 History syringe (Prolia) aspirin [...] History adopted: No household members: [facility] number of children: 2 current occupational status: retired current occupational exposures/hazards: No pets and animals: No leisure activities: reading and other history of recent travel: Yes (concert in [place]) Smoking Status: Never smoker alcohol intake: never [...] 79.6 H Lymph % (Auto) 9.6 L [place] % (Auto) 9.8 Eos % (Auto) 0.1 [...] Clarity Clear Urine pH 6.5 Ur Specific [place] 1.010 Urine Protein 30 H Urine Glucose [...] ACUTE CERVICAL FRACTURE. DEGENERATIVE CHANGES. Reading Location: [facility] Chest CT 10/03/24 19:44 IMPRESSION: 1. No acute thoracic finding. 2. Chronic findings as described. Reading Location: [facility] Brain CT 10/03/24 19:45 IMPRESSION: No acute intracranial finding. Reading Location: [facility] Hip/Pelvis X-Ray 10/03/24 21:28 IMPRESSION: DEGENERATIVE OSTEOARTHROSIS. NO ACUTE FINDINGS. Reading Location: [facility] Rhythm Strip Rhythm Strip: Sinus Rhythm Rate: [...] Prolia 60 mg/mL syringe 60 mg SC [id number] Patient Comments: due February Rx Instructions: due [...] MD [Primary Care Provider] - Print Language: [place] Disposition Disposition: Acute Care Hospital [facility] What to do if you have Problems For any increased pain, shortness of breath, bleeding, nausea or vomiting, chestpain, or any unexpected problems, contact your Primary Care Provider. Call [facility] ([phone]) or report to the closest Emergency Room. Call 911 if necessary. 10/04/24 0014 <Electronically signed by Diana Snow DO> Cosigner Signature (if applicable): CC: Dr. Bridget Swenson MD ~ Signed [facility] Work Phone: 1(843) 267-650705-25-2025 Radiology Diagnostic study [facility]05-25-2025 Radiology Diagnostic study [facility]05-25-2025 Radiology Diagnostic study [facility] 10-03-2024 Radiology Diagnostic study [facility]04-25-2025 [facility]04-22-2025 [facility] 08-30-2024 Evaluation note* Diagnosis Onset Date Resolution [...] Chest pressure inactive November 19, 2024 10:23am [facility] Work Phone: 1(245) 521-450904-21-2025 Evaluation note* Diagnosis Onset Date Resolution Status [...] 2024 10:23am Dyspnea on exertion chronic Augus 2024 2:20pm Essential (primary) hypertension chr onic December 17, 2024 2:20pm Paroxysmal atrial fibrillation chron ic December 17, 2024 2:20pm Chest pressure inactive December 2:20pm [facility] [employer] Work Phone: 1(186) 570-456404-21-2025 Radiology Diagnostic study [facility]04-21-2025 Radiology Diagnostic study [facility]04-21-2025 Radiology Diagnostic study [facility] 07-20-2024 Discharge summary Author [facility] Note Date/Time July 20, 2024 7:2 7pm [facility] Medical Records Department [address] [place] [address] Discharge Summary 07/20/241914 MR#: [id number] Acct: [id number] Name: JOYCE SOLOMON Rep #:[id number] : 1935 89 From: Aleks Marshall MD PCP: Dr. Bridget Swenson MD Status :ADM IN Location: [facility] TCU01-1 Providers Date of Admission: 06/30/24 Primary Care [...] mg/mL subcutaneous syringe (Prolia) 60 mg subcut [id number] osteoporosis 10/08/19 aspirin 81 mg chewable tablet [...] disposition determination. Discharge home alone 07/26/2024, [facility] PT/OT/SN, Hospital Bed. Hospital Bed: Patient requires [...] hernia. 2. Pulmonary venous congestion. Reading Location: [facility] D/C Instructions Discharge Diet: No restrictions Discharge [...] Additional Instructions: Discharge home alone 07/26/2024, [facility] PT/OT/SN, Hospital Bed. Hospital Bed: Patient requires [...] Prather; Jaja Gross; Sofia Aguila; Monik Crocker NP; Nelys oCpeland Instructions Additional Instructions / Restrictions: Discharge home alone 07/26/2024, [employer] PT/OT/SN, Hospital Bed. Hospital Bed: Patient requires [...] Prolia 60 mg/mL syringe 60 mg SC [id number] Patient Comments: due February Rx Instructions: due [...] Swenson MD; Dr. Aleks Marshall MD~ Signed [facility] Work Phone: 1(287) 642-733203-11-2025 [facility]03-11-2025 Radiology Diagnostic study [facility]02-20-2025 Progress note Author Wanda Caraballo [facility] Note Date/Time July 01, 2024 1:52pm [facility] Medical Records Department [address] [place] [address] Progress Note - Pharmacy 07/01/24 1429 MR#: [id number] Acct: [id number] Name: JOYCE SOLOMON Rep #:[id number] : 1935 89 From: Wanda Caraballo PCP: Dr. Bridget Swenson MD Status :ADM IN Location: TCU [facility]01-1 TCU RX Drug Regimen Review Subjective/Objective Subjective/Objective [...] 1 Mg Tablet PO 3 mg QHS BATSHEVA Administration Senna/Docusate Sodium 1 tablet 06/30/24 22:00 07/01/24 09:29 Senna/Docusate Sodium 1 Tablet PO 1 tablet BID BATSHEVA Administration Tamsulosin HCl 0.4 mg 07/01/24 17:30 Tamsulosin Hcl 0.4 Mg Capsule PO DAILY@1730 [facility] Tramadol HCl 50 mg 06/30/24 19:54 06/30/24 [...] identified Date Date of Note: 07/01/24 07/01/24 6072 <Electronically signed by Wanda Caraballo> Wanda Caraballo Cosigner Signature (if applicable): CC: ~ Signed [facility] Work Phone: 1(361) 993-746902-20-2025 History and physical note Author Aleks Rolando [facility] Note Date/Time July 01, 2024 6:29am [facility] Medical Records Department [address] [place] [address] History & Physical Exam 06/30/242013 MR#: [id number] Acct: [id number] Name: JOYCE SOLOMON Rep #:[id number] : 1935 89 From: Aleks Marshall MD PCP: Dr. Bridget Swenson MD Status :ADM IN Location: [facility] TCU01-1 [facility] - General General Date of Admission: 06/30/24 Date of Service: 07/01/24 Chief Complaint: Here for rehabilitation. HPI Narrative JOYCE SOLOMON, is a 89 Female who presents with followin06/26/2024 Admit to [facility] for ground level fall. Multiple recent [...] rehabilitation, strengthening, prior to discharge home alone. [facility] Medical History (Updated 06/30/24 @ 20:[address] Aleks Marshall MD) Cerebral amyloid angiopathy Essential (primary) hypertension [...] denosumab 60 mg/mL subcutaneous 60 mg subcut [id number] osteoporosis 10/08/19 08/24/21 History syringe (Prolia) Held [...] History adopted: No household members: [facility] number of children: 2 current occupational status: retired current occupational exposures/hazards: No pets and animals: No leisure activities: reading and other history of recent travel: Yes (concert in [place]) Smoking Status: Never smoker alcohol intake: never [...] Swenson MD; Dr. Aleks Marshall MD~ Signed [facility] Work Phone: 1(406) 119-816502-19-2025 Evaluation note* Diagnosis Onset Date Resolution Status Admit Date Cerebral amyloid angiopathy acute June 30, 2024 6:43pm Debility acute June 30, 2024 6:43pm Essential (primary) hypertension acute June 30, 025 6:43pm Insomnia acute June 30, 2024 6:43pm Obstructive sleep apnea acute F ebruary 2024 6:43pm Osteoporosis acute June 6:43pm Subarachnoid hemorrhage acute F ebary 2024 6:43pm Restless leg syndrome chronic Feb ruary 2024 6:43pm Compression fracture of L2 resolved June 30, 2024 6:43pm Compression fracture of L3 vertebra resolved June 30 025 6:43pm Hypomagnesemia resolved June 122024 6:43pm Multiple falls resolved June 122024 6:43pm Multiple rib fractures resolved Fe bruary 2024 6:43pm Multiple transverse process fractures resolved June 30 2 025 6:43pm Urine retention resolved June [...] residual deficit inactive October 06, 2024 2:26pm [facility] [employer] Work Phone: 1(354) 772-153202-19-2025 Evaluation note* Diagnosis Onset Date Resolution Status Admit Date Cerebral amyloid angiopathy acute June 30, 2024 6:43pm Debility acute June 30, 2024 6:43pm Essential (primary) hypertension acute June 30 025 6:43pm Insomnia acute June 30, 2024 6:43pm Obstructive sleep apnea acute F ebary 2024 6:43pm Osteoporosis acute June 6:43pm [facility] 6:43[facility] Restless leg syndrome chronic Feb ruary 2024 6:43pm Compression fracture of L2 resolved June 30, 2024 6:43pm Compression fracture of L3 vertebra resolved June 30 025 6:43pm Hypomagnesemia resolved June 122024 6:43pm Multiple falls resolved June 122024 6:43pm Multiple rib fractures resolved Fe bruary 2024 6:43pm Multiple transverse process fractures resolved June 30 025 6:43pm Urine retention resolved June 30, [...] fibrillation chron ic November 19, 2024 10:23am [facility] Work Phone: 1(876) 229-726102-19-2025 [facility]02-19-2025 NoteHNO ID: [id number] Author: SHAR GONSALEZ RN Service: Care Management Author Type: Registered Nurse Type: Care Mgt Progress Note Filed: 06/30/2024 13:02 Note Text: CARE MANAGEMENT DISCHARGE NOTE SERVICE DATE: June 30, 2024 SERVICE TIME: 1:01 PM Admission Date: 06/26/2024 LOS: 3 days Discharge Arrangement Discharge Arrangement: Prison Facility Was an expedited discharge program used?: No Services Arranged Medical Services: Other: See Comment Caregiver Assessment Caregiver is ready, willing and able to meet the patient's needs as recommended by the inter-professional team: Yes Name of Caregiver: M[facility] Transportation Arrangements Transportation Arrangements: Ambulance Transportation Agency and Phone #:: [facility] ( [facility] ) [phone] / [phone] Date of Trip: 06/30/24 Time of Trip: 1730 Type of Service: BLS Non-emergency Is Patient Medicaid Pending?: No Was transportation financial coverage discussed with family?: Patient Medical Intern Location: [facility] Destination: [facility] Financial Care Management Responsibility: None Additional Information: Patient discharging to [place] [facility] via [facility] cot today at 1730. No auth or 7000 needed. Transport packet next to chart and RN to call report. SIGNATURE: Shar Gonsalez RN PATIENT NAME: Joyce Solomon DATE: June 30, 2024 TIME: 1:01 [facility]02-19-2025 NoteHNO ID: [id number] Author: SHAR GONSALEZ RN Service: Care Management Author Type: Registered Nurse Type: Care Mgt Progress Note Filed: 06/30/2024 13:00 Note Text: CARE MANAGEMENT PROGRESS NOTE SERVICE DATE: 06/30/2024 SERVICE TIME: 1:00 PM LOS: 3 days IMM Follow Up Copy Given: Yes Copy given to:: Patient Method: In Person SIGNATURE: Shar Gonsalez RN PATIENT NAME: Joyce Solomon DATE: June 30, 2024 TIME: 1:00 [facility]02-19-2025 NoteHNO ID: [id number] Author: SHAR GONSALEZ RN Service: Care Management Author Type: Registered Nurse Type: Care Mgt Progress Note Filed: 06/30/2024 11:11 Note Text: CARE MANAGEMENT PROGRESS NOTE SERVICE DATE: 06/30/2024 SERVICE TIME: 11:10 AM LOS: 3 days Needs Prior to Discharge: To Be Determined, Accepting Facility, Bed Availability, Discharge Transportation [facility] Per Mery AR she was transitioned to them prior to dc last time and would prefer her to admit to TCU this time. [facility] via [facility] transition. Per team she is medically ready for dc and has met her 3 midnight requirement. CM will continue to follow and arrange transport at fl. SIGNATURE: Shar Gonsalez RN PATIENT NAME: Joyce Solomon DATE: June 30, 2024 TIME: 11:10 [facility]02-18-2025 NoteHNO ID: [id number] Author: VANCO, SHAR, RN Service: Care Management Author Type: Registered Nurse Type: Care Mgt Progress Note Filed: 06/29/2024 11:28 Note Text: CARE MANAGEMENT PROGRESS NOTE SERVICE DATE: 06/29/2024 SERVICE TIME: 11:27 AM LOS: 2 days Needs Prior to Discharge: To Be Determined, Accepting Facility, Bed Availability, Discharge Transportation Patient skilled for AR. Per previous conversation with patient, she would like to return to [facility]. [facility] tasked to build and send referral. She does not need auth or 7000 but will need transport. Cm will continue to follow. SIGNATURE: Shar Gonsalez RN PATIENT NAME: Joyce Solomon DATE: June 29, 2024 TIME: 11:27 [facility] NoteHNO ID: [id number] Author: PEEWEE LATIF APRN.CNP Service: General Surgery Author Type: Nurse Practitioner Type: Progress Notes Filed: 06/29/2024 08:12 Note Text: Trauma Surgery Progress Note SERVICE DATE: 06/29/2024 Trauma Service Pager: For questions or concerns Mon-Fri 6a-5p please page [phone]. After 5pm and on Weekends and Holidays, please page [phone] if in ICU or [phone] if on RNF. SUBJECTIVE: No acute overnight [...] Therapy: BiLevel Positive Airway Pressure IANDO: Date 06/28/24 0700 - 06/29/24 0659 06/29/24 07 - 06/30/24 0659 Shift 1404-1227 4338-5910 2722-1166 24 Hour Total 0711-4779 8053-3734 7162-9011 24 Hour Total INTAKE PO 717 833 8370 PO 565 708 6780 Supplements (mL) 0 0 Shift Total 513 484 6710 OUTPUT Urine 954 167 8679 Urine Incontinence/Not Saved 1 x 1 x Output ( External Collection Device 06/26/24) 264 419 1543 Shift Total 828 143 9022 Weight (kg) 76.2 76.2 76.2 76.2 76.2 [...] CT A (more content not included)...[facility] 06-28-2024 NoteHNO ID: [id number] Author: SHAR GONSALEZ, RN Service: Care Management Author Type: Registered [...] Determined Advance Directives Current Advance Directive: None Dimensional Integration Engineer Attempted to Assist with AD Completion: Yes [...] General wellness, Be able to go home [place] Explained: [place] Given: Yes Level of Care [...] date in chart. Patient recently admitted to [facility] and then was discharged home [facility] for SN/PT/Ot/ST. If patient skilled for home care shed like to resume with [facility] and if she needs placement shed like to return to [facility]. Pt/OT has been ordered and CM will [...] Solomon DATE: June 28, 2024 TIME: 12:27 [facility]02-17-2025 NoteHNO ID: [id number] Author: PEEWEE LATIF APRN.CNP Service: General Surgery Author Type: Nurse Practitioner Type: Progress Notes Filed: 06/28/2024 09:18 Note Text: Trauma Surgery Progress Note SERVICE DATE: 06/28/2024 Trauma Service Pager: For questions or concerns Mon-Fri 6a-5p please page [phone]. After 5pm and on Weekends and Holidays, please page [phone] if in ICU or [phone] if on RNF. SUBJECTIVE: No acute overnight [...] O2 Therapy: Room Air IANDO: Date 06/27/24 07 - 06/28/24 0659 06/28/24 07 - 06/29/24 0659 Shift 5620-8783 6480-9604 4862-5655 24 Hour Total 1052-8305 8211-0163 8441-9901 24 Hour Total INTAKE Shift Total OUTPUT [...] metatarsal fracture (more content not included)...[facility]02-17-2025 NoteHNO ID: [id number] Author: TARIK LOPEZ APRN.CORPORATE CONSULTANT Service: Neurosurgery Author Type: Nurse Practitioner Type: [...] Therapy: Room Air IANDO: Date 06/27/24699 - 06/28/24 0606/28/24699 - 06/29/24 0659 Shift 2278-6796 8583-5278 6753-8654 24 Hour Total 2701-3259 5940-1510 7258-9128 24 Hour Total INTAKE Shift Total OUTPUT [...] June 28, 2024 TIME: 9:05 AM Pager: [phone]02-04-2025 NoteHNO ID: [id number] Author: JESSA RETANA APRN.ADRIANA Service: ? Author Type: Nurse Practitioner Type: Progress Notes Filed: 06/29/2024 02:01 Note Text: [facility] Established Visit PCP: Bridget Swenson (Susie) [address] [place] [address] CEREBROVASCULAR HISTORY Joyce Solomon (Fran) is a 89 year old female who presents for neurologic evaluation following recent hospitalization for acute SAH (05/11/2024-05/16/2024). Stroke Event Information Harjit Solomon is a 89 yo F w/ PMH HTN, HLD, pAF on warfarin, NEL on CPAP, osteoporosis, secondary hypothyroidism transferred from [place] ED May 11, 2024 for ICH monitoring. [...] started on nicardipine and transferred to [facility] for continuation of care. 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 Notes residual slurred speech, left side weakness, [...] involving digestive system(787.99) PAF (paroxysmal atrial fibrillation) ([facility]) 10/20/2013 Thyroid disorder PAST SURGICAL HISTORY Procedure [...] tablets (more content not included)... [facility]02-04-2025 History of Present illness Narrative* Jessa Retana APRN.[facility] - 06/15/2024 11:01 AM EST CEREBROVASCULAR CENTER Established Visit PCP: Bridget Swenson ([facility]) [address] [place] [address] CEREBROVASCULAR HISTORY Joyce Solomon (Fran) is a 89 year old female who presents for neurologic evaluation following recent hospitalization for acute SAH (05/11/2024-05/16/2024). Stroke Event Information Harjit Solomon is a 89 yo F w/ PMH HTN, HLD, pAF on warfarin, NEL on CPAP, osteoporosis, secondaryhypothyroidism transferred from [place] ED May 11, 2024 for ICH monitoring. [...] ED, started on nicardipine and transferred to [facility] for continuation ofcare. 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 Notes residual slurred speech, left side weakness, [...] involving digestive system(787.99) PAF (paroxysmal atrial fibrillation) ([facility]) 10/20/2013 Thyroid disorder PAST SURGICAL HISTORY Procedure [...] GI Upset States had GI bleed Adhes. Rlok-Owdx-Nl* Beets Rash raised injection site when allergy [...] tremor. Sensation: Grossly intact light touch. Coordination: Yxjqij-qe-gwdp without dysmetria bilaterally. Gait: Ambulates easily into [...] which included preparing to see the patient, pvon-rm-clua patient care, completing clinical documentation, obtaining and/or reviewing separately obtained history, performing a medically appropriate examination, counseling and educating the patient/family/caregiver, independently interpreting results (not separately reported), and communicating results to the patient/family/caregiver SIGNATURE Jessa Retana APRN.CORPORATE CONSULTANT 06/15/2024 [facility]01-20-2025 [facility]01-19-2025 Evaluation note* Diagnosis Onset Date Resolution Status [...] 04, 2024 12:39am Noncompliance acute October 04, 2 025 12:39am Toxic encephalopathy acute October 04, 2024 12:39am Chronic back pain chronic September 12:39am [facility] Work Phone: 1(106) 580-971401-19-2025 Evaluation note* Diagnosis Onset Date Resolution Status [...] 2:26pm Chronic back pain inactive September 2:26pm [facility] Work Phone: 1(889) 388-373001-19-2025 [facility]01-08-2025 NoteHNO ID: [id number] Author: TATIANA FRAIRE, RN Service: ? Author Type: Registered Nurse Type: Progress Notes Filed: 05/19/2024 10:57 Note Text: Bankruptcy Paralegal Endovascular Transitional Care Management Phone Call to [...] Provider Location Dept Phone 06/14/2024 1:00 PM [facility] WSTR (I-STAT) Mery Neff [phone] 06/15/2024 11:00 AM JESSA RETANA [facility] [phone] Verification of appointments/change appointment- verified these appts [...] the call? none Tatiana Fraire RN Endovascular Bankruptcy Paralegal, [facility] May 19, 2024 10:57 [facility]01-08-2025 History of Present illness Narrative* Tatiana Fraire, RN - 05/19/2024 10:54 AM EST Bankruptcy Paralegal Endovascular Transitional Care Management Phone Call to [...] Provider Location Dept Phone 06/14/2024 1:00 PM [facility] W[facility] (I-STAT) Mery Neff [phone] 06/15/2024 11:00 AM JESSA RETANA [facility] [phone] Verification of appointments/change appointment- verified these appts [...] the call? none Tatiana Fraire RN Endovascular Bankruptcy Paralegal, Cerebrovascular Center May 19, 2024 10:57 AM * Elena Ruiz - 05/19/2024 10:40 AM EST Transferred daughter to speak to Tatiana. * Tatiana Fraire RN - 05/19/2024 10:20 AM EST Called daughter, no answer. Left detailed message with appt updates and office number for f/up questions for stroke and nsgy f/up-[facility] and appt with Jessa Retana. Tatiana Fraire RN documented in this encounterWooster [facility]01-08-2025 NoteHNO ID: [id number] Author: ?, ?, ? Service: ? Author Type: ? Type: Progress Notes Filed: 05/19/2024 10:41 Note Text: Transferred daughter to speak to Tatiana.[facility]01-08-2025 NoteHNO ID: [id number] Author: TATIANA FRAIRE RN Service: ? Author Type: Registered Nurse Type: Progress Notes Filed: 05/19/2024 10:21 Note Text: Called daughter, no answer. Left detailed message with appt updates and office number for f/up questions for stroke and nsgy f/up-[facility] and appt with Jessa Retana. Tat[facility]ore[facility]01-08-2025 NoteHNO ID: [id number] Author: TATIANA FRAIRE RN Service: ? Author Type: Registered Nurse Type: Progress Notes Filed: 05/19/2024 09:56 Note Text: Called and spoke with Jaja in case management at [facility].[phone] . She is just assessing pt today to update DC date and disposition, not sure where pt will be going after dc. Tentative DC date 18 days from 05/16. Pt needs CTH and ISMA f/up 4-6 weeks post discharge per message from inpatient nurse practitioner Faby Orozco, around 2/2(as well as stroke f/up already scheduled for 23. They do CT's at [place], but pt will likely be d/c'd prior to date needed. Jaja will have nurse call to update us so we can schedule accordingly. Office number provided. Tatiana Fraire RNCorey [facility]01-08-2025 History of Present illness Narrative* Tatiana Fraire, ALBERT - 05/19/2024 9:50 AM EST Called and spoke with Jaja in case management at [facility].[phone] . She is just assessing pt today to update DC date and disposition, not sure where pt will be going after dc. Tentative DC date 18 days from 05/16. Pt needs CTH and ISMA f/up 4-6 weeks post discharge per message from inpatient nurse practitioner Faby Orozco, around 2/2(as well as stroke f/up already scheduled for 2/3. They do CT's at [place], but pt will likely be d/c'd prior to date needed. Jaja willhave nurse call to update us so we can schedule accordingly. Office number provided. Tatiana Fraire RN documented in this encounterW[facility]oster [facility]01-08-2025 NotePatient Outreach (NSEVMN) Harjit SOLOMON ([id number]) 1935 F CHT Date Time Provider Department 05/19/24 [facility]ONG [facility] During your visit today, we recorded the following information about you: Tatiana Fraire, ALBERT 05/19/2024 9:56 AM Signed Called and spoke with Jaja in case management at [facility].[phone] . She is just assessing pt today to update DC date and disposition, not sure where pt will be going after dc. Tentative DC date 18 days from 05/16. Pt needs CTH and ISMA f/up 4-6 weeks post discharge per message from inpatient nurse practitioner Faby Orozco, around 2/2(as well as stroke f/up already scheduled for 06/14. They do CT's at [place], but pt will likely be d/c'd prior to date needed. Jaja will have nurse call to update us so we can schedule accordingly. Office number provided. Tatiana Fraire RN Allergies As of Date: 05/19/2024 Noted Allergy Reaction SUTURES 11/26/2012 9 - Itching ACTONEL (RISEDRONATE SODIUM) 11/06/2007 8 - GI Upset Comments: States had GI bleed ADHES. [id number] 12/09/2007 BEETS 05/28/2011 2 - Rash Comments: [...] 02/19/2012 Insomnia, unspecified [G47.00] 02/11/2007 02/19/2012 NIGHTMARE [[id number]] 02/11/2007 04/12/2014 LUMBAR RADICULITIS [SRK9269] 02/11/2007 BACKACHE NOS [M54.9] 02/17/2007 MITRAL INSUFFICIENCY [...] emergency [I16.1] 05/11/2024 05/12/2024 Current use of [facility] antico[facility] [Z79.0*05/11/2024 Restless leg syndrome [G25.81] 05/11/2024 Obesity, Class I, BMI 30-34.9 [E66.811] 05/12/2024 Malnutrition of mild degree (HCC) [E44.1] 05/13/2024 05/16/2024 Cerebral amyloid angiopathy (CODE) [I68.0] 05/17/2024 Encounter Status:Closed by TATIANA FRAIRE on 05/19/24[facility] 05-19-2024 NotePatient Outreach (NSEVMN) Harjit SOLOMON ([id number]) 1935 F T Date Time Provider Department 05/19/24 CARI WONG NSEN During your visit today, we recorded the following information about you: Tatiana Fraire RN 05/19/2024 10:21 AM Signed Called daughter, no answer. Left detailed message with appt updates and office number for f/up questions for stroke and nsgy f/up-[facility] and appt with Jessa Retana. Tatiana Fraire RN Elena Ruiz 05/19/2024 10:41 AM Signed Transferred daughter to speak to Tatiana. Tatiana Fraire RN 05/19/2024 10:57 AM Signed Bankruptcy Paralegal Endovascular Transitional Care Management Phone Call to [...] Provider Location Dept Phone 06/14/2024 1:00 PM [facility] W[facility] (I-STAT) [place] T[place]anda [phone] 06/15/2024 11:00 AM JESSA RETANA [facility] [phone] Verification of appointments/change appointment- verified these appts and that a cardiology appt was requested but is at in July. Read in DC summary that they would like sooner cardiology appt. She will call to try to reschedule and possibly get it closer to [place]. Point of Contact: Are you the best point of contact for patient? yes Verify PCP(add if not on chart)on chart Staff provided office number to contact for f/up questions or concerns.-provided Questions: Questions at the end of the call? none Tatiana Fraire RN Endovascular Bankruptcy Paralegal, Cerebrovascular Center May 19, 2024 10:57 AM Allergies As of Date: 05/19/2024 Noted Allergy Reaction SUTURES 11/26/2012 9 - Itching ACTONEL (RISEDRONATE SODIUM) 11/06/2007 8 - GI Upset Comments: States had GI bleed ADHES. [id number] 12/09/2007 BEETS 05/28/2011 2 - Rash Comments: [...] 02/19/2012 Insomnia, unspecified [G47.00] 02/11/2007 02/19/2012 NIGHTMARE [PXP2812] 02/11/2007 04/12/2014 LUMBAR RADICULITIS [[id number]] 02/11/2007 BACKACHE NOS [M54.9] 02/17/2007 MITRAL INSUFFICIENCY [...] [I62.9] 05/11/2024 SAH (subarachnoi (more content not included)...[facility] 05-16-2024 [facility]01-05-2025 Evaluation note* Diagnosis Onset Date Resolution Status Admit Date Cerebral amyloid angiopathy acute May 16, 2024 4:02pm Debility deleted May 16, 025 4:02pm Essential (primary) hypertension acute May 16 4:02pm Nightmares acute May 16 025 4:02pm Osteoporosis acute May 16, 2024 4:02pm Subarachnoid hemorrhage acute J anuary 2024 4:02pm 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, 2024 4:02pm Restless leg syndrome chronic Robert uary 2024 4:02pm Acute cystitis with positive culture resolved May 16 4:02pm Catheter-associated urinary tract infection resolved May 16 4:02pm Daytime somnolence resolved Rusty maldonado 2024 4:02pm Hypomagnesemia resolved May 4:02pm Urine retention resolved May 162024 4:02pm Elevated PTHrP level inactive 2024 4:02pm Hyperlipidemia inactive May 4:02pm Hypothyroidism inactive May 4:02pm Iron deficiency anemia inactive nicoleperkins 2024 4:02pm alf (current) use of anticoagulants inactive May 16 4:02pm Paroxysmal atrial fibrillation inact hemant May 16, 2024 4:02pm Secondary pulmonary arterial hypertension inactive May 16 4:02pm Sleep apnea inactive May 16, 2024 4:02pm Venous insufficiency of both lower extremities inactive May 16, 2 025 4:02pm Vitamin D deficiency inactive 2024 4:02pm Atrial fibrillation deleted ry 2024 4:02pm Debility acute May 30, 2024 2:19pm Essential (primary) hypertension acute May 30 2:19pm Hemorrhagic stroke acute 2024 2:19pm Insomnia acute May 30, 2024 2:19pm Obstructive sleep apnea acute J anuary 2024 2:19pm Subarachnoid hemorrhage acute J anuary 2024 2:19pm Restless leg syndrome chronic [facility] 2024 2:19pm Hypomagnesemia resolved May 302024 2:19pm [...] fracture of L3 vertebra resolved June 30, 025 6:43pm Hypomagnesemia resolved June 122024 6:43pm Urine retention resolved June 30, 2024 6:43pm Afib inactive June 30, 2024 6:43pm Fracture of fifth metatarsal bone of right foot inactive June 6:43pm [facility] Work Phone: 1(446) 903-888501-05-2025 Evaluation note* Diagnosis Onset Date Resolution Status Admit Date Cerebral amyloid angiopathy acute May 16, 2024 4:02pm Debility deleted May 16 025 4:02pm Essential (primary) hypertension acute May 16 4:02pm Nightmares acute May 16 025 4:02pm Osteoporosis acute May 16, 2024 4:02pm Subarachnoid hemorrhage acute J anuary 2024 4:02pm 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, 2024 4:02pm Paroxysmal atrial fibrillation chron ic May 16, 2024 4:02pm Restless leg syndrome chronic May 2024 4:02pm Acute cystitis with positive culture resolved May 16 4:02pm Catheter-associated urinary tract infection resolved May 16 4:02pm Daytime somnolence resolved 2024 4:02pm Hypomagnesemia resolved May 4:02pm Urine retention resolved May 162024 4:02pm Elevated PTHrP level inactive 2024 4:02pm Hyperlipidemia inactive May 4:02pm Hypothyroidism inactive May 4:02pm Iron deficiency anemia inactive kathleen 2024 4:02pm alf (current) use of anticoagulants inactive May 16 4:02pm Secondary pulmonary arterial hypertension inactive May 16 4:02pm Sleep apnea inactive May 16, 2024 4:02pm Venous insufficiency of both lower extremities inactive May 16, 025 4:02pm Vitamin D deficiency inactive 2024 4:02pm Atrial fibrillation deleted Clarice ry [...] fibrillation chron ic July 26, 2024 11:15am [facility] Work Phone: 1(838) 762-446601-05-2025 NoteHNO ID: [id number] Author: LOLISDANUTA RENAE RN Service: Care Management Author Type: Registered Nurse Type: Care Mgt Progress Note Filed: 05/16/2024 12:25 Note Text: CARE MANAGEMENT DISCHARGE NOTE SERVICE DATE: May 16, 2024 SERVICE TIME: 12:24 PM Admission Date: 05/11/2024 LOS: 5 days Discharge Information Row Name Admission (Current) from 05/11/2024 in HOSP MAIN H060 Rehab Facility Agency [facility] SNF Phone# Discharge today to [facility] for AR. Will send discharge paperwork. Nurse has report number. SIGNATURE: Danuta Galvan RN PATIENT NAME: Harjit Solomon DATE: May 16, 2024 TIME: 12:24 [facility]01-05-2025 NoteHNO ID: [id number] Author: TRUDI BURGOS MD Service: Neurology Stroke Author Type: Resident Type: Progress Notes Filed: 05/16/2024 09:50 Note Text: Documentation Query Please clarify the diagnosis associated with the clinical indicators for this patient "Hypophosphatemia" not present on admission Plan: -Replenish as needed This document will become part of the patient's medical record. Trudi Burgos MD Neurology PGY-3 [id number] 05/16/2024 9:49 [facility]01-04-2025 NoteHNO ID: [id number] Author: CARI WONG MD, PhD Service: Neurology [...] touch COORDINATION: Finger-to- nose-finger intact bilaterally and Tmbo-sc-weoo intact bilaterally GAIT: Not assessed DATA: Diagnostic [...] hemorrhage (HCC) (POA: Yes) [facility] use of [facility] antico[facility] (POA: Yes) Restless leg syndrome (POA: [...] Losartan 25mg daily Atenolol 25mg BID Continue AUTO HAULER Ropinorole PT/OT following - patient skilled for SNF (plan for D/C Tuesday 05/16) Lines, Drains, and Airways Line Duration Periph (more content not included)...[facility]01-03-2025 Nurse Note* Damari Wiggins RN - [...] By Damari Wiggins RN In Department: CARDIOLOGY [facility]01-03-2025 Nurse Note* Damari Wiggins RN - [...] RN In Department: CARDIOLOGY documented in this encounterWooster [facility]01-03-2025 NoteHNO ID: [id number] Author: CARI WONG MD, PhD Service: Neurology [...] touch COORDINATION: Finger-to- nose-finger intact bilaterally and Nylb-zz-mjii intact bilaterally GAIT: Not assessed DATA: Diagnostic [...] hemorrhage (HCC) (POA: Yes) Current use of long term acute care registered nurse anticoagulation (POA: Yes) Restless leg syndrome (POA: Yes) Obesity, Class I, BMI 30-34.9 (POA: Status not on file) Malnutrition of mild degree (HCC) (POA: Yes) Assessment and Plan: Malnutrition Diagnosis supported by Registered Dietitian:Mild Protein-Calorie Malnutrition Based on: Insufficient Energy Intake Assessment: I have reviewed the result of the m (more content not included)... [facility]01-02-2025 NoteHNO ID: [id number] Author: TRUDI BURGOS MD Service: Neurology Stroke Author Type: Resident Type: Plan of Care Filed: 05/13/2024 16:04 Note Text: Stroke Neurology Plan of Care Discussed negative endocarditis and aneurysmal workup with ASERT team and Neurosurgery. Okay for transfer from neurosurgery to stroke primary and verbal signout given by Faby Orozco APRN.CORPORATE CONSULTANT to myself. Discussed with ASERT team and stroke primary staff Dr. Cari Wong. Trudi Burgos MD Neurology PGY-3 [id number] 05/13/2024 4:04 [facility]01-02-2025 NoteHNO ID: [id number] Author: VANESA MANCIA RDMS Service: ? Author Type: Hospital Account Liaison Type: Progress Notes Filed: 05/13/2024 14:33 Note [...] PATIENT PRESENTS WITH AN IMPLANTABLE OR ATTACHED SENIOR WEB SERVICES DEVELOPER: No RADIOLOGY DEPARTMENT: Ultrasound PERIPHERAL IV DATA: Not applicable SIGNED BY: Vanesa Mancia RDMS May 13, 2024 2:33 [facility]01-02-2025 NoteHNO ID: [id number] Author: FABY OROZCO APRN.CNP Service: Neurosurgery Author Type: Nurse Practitioner Type: Progress Notes Filed: 05/13/2024 13:02 Note Text: SERVICE DATE: 05/13/2024 SERVICE TIME: 1:02 PM NEUROSURGERY PROGRESS NOTE Please page [phone] after 6 PM and on weekends Subjective [...] Yes. 5. Restraints No. 6. Last BM AUTO HAULER Assessment AND Plan Active Hospital Problems as of 05/13/2024 Noted - Resolved [facility] Hospital Essential (primary) hypertension 03/04/2005 - Present Yes Overview 05/13/2014: Home BP Cuff Validated. Home BP: 192/74 Office BP: 189/63 Current Assessment AND Plan Continue atenolol 25 mg daily SBP < 160 > 90 mmhg NEL (obstructive sleep apnea) 10/16/2011 - Present Yes Overview [facility] Current Assessment AND Plan CPAP HS PAF (paroxysmal atrial fibrillation) (HCC) 10/20/2013 - Present Yes Current Assessment AND [...] SQH for 48 hours Current use of long term acute care registered nurse anticoagulation 05/11/2024 - Present Yes Current Assessment [...] Prophylaxis/Anticoagulants 05/12/24 0715 activity - mobilize patient (ga,ca) 05/11/24 1830 vte pharmacologic prophylaxis contraindicated (ga,ca) 05/11/24 1830 pneumatic compression stockings ([place], [place]) VTE Prophylaxis: Contraindicated for 48 hours Plan of care discussed with: Provider, RN, Patient SIGNATURE: Faby Orozco APRN.CNP PATIENT NAME: Harjit Solomon DATE: May 13, 2024 TIME: 1:02 [facility]01-02-2025 NoteHNO ID: [id number] Author: ROMAIN GIANG ? Service: Pharmacy Author Type: Gas Brazer Type: Plan of Care Filed: 05/13/2024 12:56 Note Text: Insurance investigation completed Patient has active prescription insurance: No - Patient is self-pay, opted out of Part D Insurance loaded into [place]: None located at this time Test claim was completed to verify insurance is active: Unsuccessful Any questions, please reach out to your medication community center coordinator.[facility]01-02-2025 NoteHNO ID: [id number] Author: SHAMAR DAVIS RPh Service: Pharmacy Author Type: Pharmacist Type: Plan of Care Filed: 05/14/2024 09:28 Note Text: PHARMACY MEDICATION REVIEW Patient Name: Harjit Solomon : 1935 The following medications were updated within the AUTO HAULER medication list: Medications ADDED to AUTO HAULER medication list [place] 7.5 Mag Ox Ropinirole Medications CHANGED on AUTO HAULER medication list Atenolol Medications REMOVED from AUTO HAULER medication list Calcium Additional comments: fills with 2 pharmacies ; did have furosemide 40mg BID filled in November, but nothing more recent The below information represents the best possible medication history: Yes Medication history completed by: Pharmacist: Shamar Davis RPh Source of history: Pharmacy records: [facility] [place] and [facility] - [place] Medication nonadherence identified: Unable to assess Reconciliation completed: Yes All AUTO HAULER medications addressed by LIP Patient interested in Bedside Delivery Services or using OP Pharmacy at discharge? Unable to assess Preferred outpatient pharmacy: e- [facility] [address] [place], [place] [id number] - [address] - [phone] 1812 e- [id number] - [place] [address] - [address] - [phone] 4873 e- [id number] [place], [place] [id number] - [address] - [phone] [address] Allergies: Sutures Itching Actonel [Risedronat* GI Upset Comment:States had GI bleed Adhes. Slws-Pqel-Xs* Beets Rash Comment:raised injection site when allergy [...] daily as directed. Facility-Administered Medications: None Shamar Torres [facility] 05/13/2024[facility]01-01-2025 NoteHNO ID: [id number] Author: SUSAN JOHNSON MD Service: Neurosurgery Author Type: Resident Type: Progress Notes Filed: 05/12/2024 10:06 Note Text: Neurosurgery Inpatient Progress Note Interval HPI: [facility] reviewed, slight increase in SAH/ICH CTA negative [...] warfarin, NEL, osteoporosis, secondary hypothyroidism transferred from [place] ED May 11, 2024 with RF cortical [...] Susan Johnson MD PGY-4, Neurological Surgery Pager: [phone] Neurosurgery card tape converter operator: [id number] 10:04 AM 05/12/24 Please page [phone] on weekends and [facility] NoteHNO ID: [id number] Author: CLINT BERMUDEZ APRN.CORPORATE CONSULTANT Service: Neurology ICU Author Type: Nurse Practitioner [...] Patient/ designee ICU Disposition: ICU Disposition-POC Detail: Yes-German Professor notified Prevention: Line Status: None Patricio Status: None Pressure Injury Status: None GI/Stress Ulcer Prophylaxis: None - not required Nutrition is at Goal: Advancing to goal VTE Prophylaxis: Chemoprophylaxis: No chemoprophylaxis Mechanical Prophylaxis: Thigh high SCD No Chemoprophylaxis Reason: Bleeding risk PERSONAL INVOLVEMENT IN CARE: Reviewing initiation, responses and adjustments to therapies, coordination of care, and updating family with Staff Physician, Dr. Cjea. Assessment AND Plan Neurology * SAH (subarachnoid hemorrhage) (HCC)- (present on admission) [id number] SAH PLAN: CTA negative for aneurysm SAH precautions d/c'd NSGY primary SBP <160 MRI WWO when able Restless leg syndrome- (present on admission) cont requip Intracranial hemorrhage (HCC)- (present on admission) see "SAH: for initial plan Cardiovascular PAF (paroxysmal atrial fibrillation) (HCC)- (present on admission) home regimen: atenolol 25mg PLAN EKG echo resume beta sera as necessary Essential (primary) hypertension- (present on admission) resume losartan starting at 50mg daily - increase as necessary Pulmonary NEL (obstructive sleep apnea)- (present on admission) CPAP Other Current use of [facility] anticoagulation- (present on admission) heparin for pAF, now on hold Kcentra ordered on arrival Exogenous Class 1 Obesity Medication and Non-Pharmacologic VTE Prophylaxis/Anticoagulants 05/12/24 0715 activity - mobilize patient (ga,ca) 05/11/24 1830 vte pharmacologic prophylaxis contraindicated (ga,ca) 05/11/24 1830 pneumatic compression stockings ([place]) VTE Prophylaxis: Contraindicated ICH/SAH Plan of care discussed with: Provider, RN, Patient SIGNATURE: Clint Bermudez APRN.CNP PATIENT NAME: Harjit Solomon DATE: May 12, 2024 TIME: 7:26 [facility]01-01-2025 NoteHNO ID: [id number] Author: VEGA VELASQUEZ RT(R) Service: Radiology Author Type: Energy Infrastructure Engineer Type: Progress Notes Filed: 05/12/2024 05:05 Note [...] PATIENT PRESENTS WITH AN IMPLANTABLE OR ATTACHED SENIOR WEB SERVICES DEVELOPER: No RADIOLOGY DEPARTMENT: CT; Exam(s) Completed: Brain PERIPHERAL IV DATA: Not applicable SIGNED BY: RT Tello(R) May 12, 2024 5:05 [facility]12-31-2024 NoteHNO ID: [id number] Author: JESIKA HALL RT(R) Service: Radiology Author [...] PATIENT PRESENTS WITH AN IMPLANTABLE OR ATTACHED SENIOR WEB SERVICES DEVELOPER: No ALLERGIES: Reviewed and unchanged CONTRAST ALLERGY: [...] Solomon DATE: May 11, 2024 TIME: 8:47 [facility]12-31-2024 NoteHNO ID: [id number] Author: NORMA MOON APRN.CNP Service: ? Author Type: Nurse Practitioner Type: Progress Notes Filed: 05/11/2024 20:04 Note Text: CRITICAL CARE TRANSPORT MEDICAL CONTROL CONSULT NOTE Patient Name: Harjit Solomon Service Date: May 11, 2024 Referring Facility: [facility] Accepting Facility: [facility] REASON FOR TRANSPORT: higher level neurosurgical care REASON FOR CONSULT: BP management CCT MEDICAL CONTROL CONSULT SUMMARY: History, physical exam findings, and available background patient information from [facility] Transport Nurse were reviewed at the time of consult. Pertinent additional information was reviewed as follows: CCT transport request log In brief, Harjit Solomon is a 89 year old female with a history, known at time of consult, significant for afib on coumadin who presented to [facility] for evaluation of left arm weakness. CT + for IPH, treated with vitamin K and cardene infusion PLAN: Multiple factors considered including: patient history/condition/trajectory/stability, referring and receiving destinations, duration of transport time, medications and therapies available during transport, patient safety, as well as crew capabilities. Orders given for: cardene titration Plan of care and orders confirmed and read back via telephone with [facility] Transport science faculty member, David Campos RN SIGNATURE: Norma Moon APRN.CNP Acute Care Nurse Practitioner [facility] History of Present illness Narrative* Norma Moon APRN.CNP - 05/11/2024 5:19 PM EST Images from the original note were not included. CRITICAL CARE TRANSPORT MEDICAL CONTROL CONSULT NOTE Patient Name: Harjit Solomon Service Date: May 11, 2024 Referring Facility: [facility] Accepting Facility: [facility] MAIN REASON FOR TRANSPORT: higher level neurosurgical care REASON FOR CONSULT: BP management CCT MEDICAL CONTROL CONSULT SUMMARY: History, physical exam findings, and available background patient information from [facility] Transport Nurse were reviewed at the time of consult. Pertinent additional information was reviewed as follows: CCT transport request log In brief, Harjit Solomon is a 89 year old female with a history, known at time of consult, significant for afib on coumadin who presented to [facility] for evaluation of left arm weakness. [...] confirmed and read back via telephone with CCT Transport science faculty member, David Campos RN SIGNATURE: Norma Moon APRN.CNP Acute Care Nurse Practitioner Critical Care [facility] Discharge summary Author Duglas Shields [facility] May 12, 2023 10:03am Note Date/Time May 12, 2023 7: 50am [facility] Medical Records Department [address] [place] [address] Emergency Department Summary 05/12/23 MR#: [id number] Acct: [id number] Name: JOYCE SOLOMON Rep #:[id number] : [...] for COVID. Patientalso has no urinary symptoms. [facility] Medical History (Updated 05/12/23 @ 10:02 by [...] mg/mL subcutaneous syringe (Prolia) 60 mg subcut [id number] osteoporosis 10/08/19 [History Last Taken 08/24/21] calcium [...] history of recent travel: Yes (concert in [place]) Smoking Status: Never smoker alcohol intake: never [...] (Auto) 65.0 Lymph % (Auto) 13.0 L [place] % (Auto) 19.2 H Eos % (Auto) [...] Clarity Clear Urine pH 8.0 Ur Specific [place] 1.010 Urine Protein 30 H Urine Glucose [...] Prolia 60 mg/mL syringe 60 mg SC [id number] Patient Comments: due February Rx Instructions: due [...] warfarin 3 mg Tablet 3 mg PO MITCH Primary Care Provider: Doyle Swenson Referrals: Doyle Swenson MD [Primary Care Provider] - 3-5 Days if not improving Disposition Disposition: Home, Self Care What to do if you have Problems For any increased pain, shortness of breath, bleeding, nausea or vomiting, chestpain, or any unexpected problems, contact your Primary Care Provider. Call [facility] ([phone]) or report to the closest Emergency Room. Call 911 if necessary. 05/12/23 1003 <Electronically signed by Duglas Shields MD> Cosigner Signature (if applicable): CC: Dr. Doyle Swenson MD ~ Signed [facility] Work Phone: Evaluation note* Diagnosis Onset Date Resolution Status Dyspnea on exertion chronic Essential (primary) hypertension chronic Paroxysmal atrial fibrillation chronic Hematemesis resolved [facility] Work Phone: Evaluation note* Diagnosis Onset Date Resolution Status Hematemesis resolved [facility] Work Phone: evaluation note* Diagnosis Onset Date Resolution Status Hematemesis resolved Elevated C-reactive protein (CRP) acute Ileitis acute [facility] Work Phone: evaluation note* Diagnosis Onset Date Resolution Status Elevated C-reactive protein (CRP) acute Ileitis acute Elevated C-reactive protein (CRP) acute [facility] Work Phone: evaluation note* Diagnosis Onset Date Resolution Status Elevated C-reactive protein (CRP) acute Ileitis acute Elevated C-reactive protein (CRP) acute Dyspnea on exertion chronic Essential (primary) hypertension chronic Paroxysmal atrial fibrillation chronic [facility] Work Phone: evaluation note* Diagnosis Onset Date Resolution Status Elevated C-reactive protein (CRP) acute Dyspnea on exertion chronic Essential (primary) hypertension chronic Paroxysmal atrial fibrillation chronic [facility] Work Phone: Evaluation note* Diagnosis Onset Date Resolution Status Elevated C-reactive protein (CRP) acute Dyspnea on exertion chronic Essential (primary) hypertension chronic Paroxysmal atrial fibrillation chronic Debility acute Intractable low back pain ac kiana Unable to ambulate acute [facility] Work Phone: Evaluation note* Diagnosis Onset Date Resolution Status Elevated C-reactive protein (CRP) acute Dyspnea on exertion chronic Essential (primary) hypertension chronic Paroxysmal atrial fibrillation chronic Debility acute Intractable low back pain ac kiana Unable to ambulate acute Atrial fibrillation acute Compression fracture of L3 vertebra acute Debility acute Edema acute Hypomagnesemia acute Intractable low back pain ac kiana Iron deficiency anemia acute Osteoporosis acute Restless leg syndrome acute Vitamin D deficiency acute Hypertension chronic [facility] Work Phone: Evaluation note* Diagnosis Onset Date Resolution Status Elevated C-reactive protein (CRP) acute Dyspnea on exertion chronic Essential (primary) hypertension chronic Paroxysmal atrial fibrillation chronic Debility acute Intractable low back pain ac kiana Unable to ambulate acute Atrial fibrillation acute Compression fracture of L3 vertebra acute Debility acute Edema acute Hypomagnesemia acute Intractable low back pain ac kiana Iron deficiency anemia acute Osteoporosis acute Restless leg syndrome acute Vitamin D deficiency acute Hypertension chronic Atrial fibrillation acute Compression fracture of L3 vertebra acute Debility acute Edema acute Hypomagnesemia acute Intractable low back pain ac kiana Iron deficiency anemia acute Osteoporosis acute Restless leg syndrome acute Vitamin D deficiency acute Hypertension chronic [facility] Work Phone: Evaluation note* Diagnosis Onset [...] pain re solved Lower back pain acute [facility] Work Phone: Evaluation note* Diagnosis Onset [...] vertebra acute Intractable low back pain ac kiana Lower back pain acute Supratherapeutic INR acute [facility] Work Phone: Evaluation note* Diagnosis Onset [...] Debility acute Intractable low back pain ac kiana Lower back pain acute Supratherapeutic INR acute [facility] Work Phone: Evaluation note* Diagnosis Onset [...] back pain resolved Supratherapeutic INR resolve d [facility] Work Phone: Evaluation noteNo assessment information available [facility] Work Phone: Evaluation note* Diagnosis Onset Date Resolution Status Dyspnea on exertion chronic Essential (primary) hypertension chronic Paroxysmal atrial fibrillation chronic [facility] Work Phone: Evaluation note* Diagnosis SAH (subarachnoid hemorrhage) (HCC)- Primary Subarachnoid hemorrhage Intracranial hemorrhage (HCC) Unspecified intracranial hemorrhage SAH (subarachnoid hemorrhage) (HCC) Subarachnoid hemorrhage Intracranial hemorrhage (HCC) Unspecified intracranial hemorrhage NEL (obstructive sleep apnea) Obstructive sleep apnea (adult) (pediatric) PAF (paroxysmal atrial fibrillation) (HCC) Atrial fibrillation Current use of long term acute care registered nurse anticoagulation Long-term (current) use of anticoagulants Restless [...] Unspecified essential hypertension [facility] Diagnosis Altered mental status, unspecified altered mental status type- Primary UTI (urinary tract infection), bacterial documented in this encounter [facility] Work Phone: Evaluation note* Diagnosis SAH (subarachnoid hemorrhage) (HCC)- Primary Subarachnoid hemorrhage Intracranial hemorrhage (HCC) Unspecified intracranial hemorrhage SAH (subarachnoid hemorrhage) (HCC) Subarachnoid hemorrhage Intracranial hemorrhage (HCC) Unspecified intracranial hemorrhage NEL (obstructive sleep apnea) Obstructive sleep apnea (adult) (pediatric) PAF (paroxysmal atrial fibrillation) (HCC) Atrial fibrillation Current use of [facility] anticoagulation Long-term (current) use of anticoagulants Restless leg syndrome Restless legs syndrome (RLS) Essential (primary) hypertension Unspecified essential hypertension Obesity, Class I, BMI 30-34.9 Obesity, unspecified Malnutrition of mild degree (HCC) Malnutrition of mild degree Essential (primary) hypertension- Primary Unspecified essential hypertension documented in this encounter [facility] note* Diagnosis SAH (subarachnoid hemorrhage) (HCC)- Primary Subarachnoid hemorrhage Intracranial hemorrhage (HCC) Unspecified intracranial hemorrhage SAH (subarachnoid hemorrhage) (HCC) Subarachnoid hemorrhage Intracranial hemorrhage (HCC) Unspecified intracranial hemorrhage NEL (obstructive sleep apnea) Obstructive sleep apnea (adult) (pediatric) PAF (paroxysmal atrial fibrillation) (HCC) Atrial fibrillation Current use of long term acute care registered nurse anticoagulation Long-term (current) use of anticoagulants Restless leg syndrome Restless legs syndrome (RLS) Essential (primary) hypertension Unspecified essential hypertension Obesity, Class I, BMI 30-34.9 Obesity, unspecified Malnutrition of mild degree (HCC) Malnutrition of mild degree SAH (subarachnoid hemorrhage) (HCC)- Primary Subarachnoid hemorrhage [facility] SAH (subarachnoid hemorrhage) (HCC)- Primary Subarachnoid hemorrhage Intracranial hemorrhage (HCC) Unspecified intracranial hemorrhage SAH (subarachnoid hemorrhage) (HCC) Subarachnoid hemorrhage Intracranial hemorrhage (HCC) Unspecified intracranial hemorrhage NEL (obstructive sleep apnea) Obstructive sleep apnea (adult) (pediatric) PAF (paroxysmal atrial fibrillation) (HCC) Atrial fibrillation Current use of long term acute care registered nurse anticoagulation Long-term (current) use of anticoagulants Restless leg syndrome Restless legs syndrome (RLS) Essential (primary) hypertension Unspecified essential hypertension Obesity, Class I, BMI 30-34.9 Obesity, unspecified Malnutrition of mild degree (HCC) Malnutrition of mild degree PAF (paroxysmal atrial fibrillation) (HCC)- Primary Atrial fibrillation Essential (primary) hypertension- Primary Unspecified essential hypertension [facility] Additional Instructions Ice or cool compresses to your chest wall. Tylenol for pain. Follow-up if not improving or return if a lot worse. Your chest x-ray today showed old rib fractures. But no acute process. No collapsed lung. No acute rib fractures. [facility] Work Phone: Hospital Discharge instructions Additional Instructions Discharge home alone 07/26/2024, [employer] PT/OT/SN, Hospital Bed. Hospital Bed: Patient requires a hospital bed due to needing frequent changes in position to alleviate pain, prevent ongoing pressure areas, assist in healing of current pressure areas, prevent aspiration or due to respiratory condition that is not feasible in an ordinary bed.[facility] Work Phone: Hospital Discharge instructions* Attachments The following attachments cannot be sent through Care Everywhere. * Urinary Tract Infection, [facility] ED ([facility]: Reason for referral (narrative)* Outpatient Procedure (Routine) - Authorized Specialty Diagnoses / Procedures Referred By Contac t Referred To [facility] Diagnoses PAF (paroxysmal atrial fibrillation) ([facility]) Procedures ECG COMPLETE ECG ROUTINE ECG W/LEAST 12 LDS W/I&R Toyin Del Castillo MD [address] [place] [address] [facility] [address] [place] [address] Referral ID Status Reason Start Date Expiration Date Visits Requested Visits Authorized [id number] Authorized Auto-Generat ed Referral 05/14/2024 05/14/2025 1 1 [facility] Chief Complaint and Reason for Visit Chief [...] Iron deficiency anemia May 16, 2024 4:02pm long term acute care registered nurse (current) use of anticoagulant s May 16, [...] RULE OUT August 30, 2024 2:0 1pm Reason for Visit Admit Date [...] 2024 4:02pm Acute cystitis with positive culture Robert 2024 4:02pm Catheter-associated urinary tract infect ion May 16, 2024 4:02pm Daytime somnolence May 16, 2024 4: 02pm Hypomagnesemia May 16, 2024 4: 02pm Urine retention May 16, 2024 4: 02pm Elevated PTHrP level May 16, 2024 4 :02pm Hyperlipidemia May 16, 2024 4: 02pm Hypothyroidism May 16, 2024 4: 02pm Iron deficiency anemia May 16, 2024 4:02pm long term acute care registered nurse (current) use of anticoagulant s May 16, [...] WORSENING CONFUSI ON September 03, 2024 12:09pm [facility] WORK September 06, 2024 4 :00am [...] June 30, 2024 6:43pm Essential (primary) hypertension [id number] 6:43pm Insomnia June 30, 2024 6:43pm Obstructive [...] of consciousness August 2:05am Cerebral amyloid angiopathy Sindy 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 May 30, 2024 2 :19pm fall June [...] WORSENING CONFUSI ON September 03, 2024 12:09pm [facility] WORK September 06, 2024 4 :00am [...] WORSENING CONFUSI ON September 03, 2024 12:09pm [facility] WORK September 06, 2024 4 :00am [...] 30, 2024 6:43pm Subarachnoid hemorrhage June 30 025 6:43pm Restless leg syndrome June 30 [...] WORSENING CONFUSI ON September 03, 2024 12:09pm [facility] WORK September 06, 2024 4 :00am [...] WORSENING CONFUSI ON September 03, 2024 12:09pm [facility] WORK September 06, 2024 4 :00am [...] WORSENING CONFUSI ON September 03, 2024 12:09pm [facility] WORK September 06, 2024 4 :00am [...] S/P [facility] 11/17November 19, 2024 10:2 3am Reason for [...] WORSENING CONFUSI ON September 03, 2024 12:09pm [facility] WORK September 06, 2024 4 :00am [...] October 06, 2024 2:26p m Toxic encephalopathy May 28th, 2025 2:26 pm Chronic back pain October 06, [...] WORSENING CONFUSI ON September 03, 2024 12:09pm [facility] WORK September 06, 2024 4 :00am [...] Yes July 24, 2021 8:58am Power of Heel Slicker Yes July 24 8:58am Advance Directive Response Recorded Date/ Time Name of Medical Power of Heel Slicker daughter Martha and grandisa Mercado July 24, 2021 8:58am Advance Directives Yes October 04 1:23pm Living Will Yes October 04, 2021 1 :23pm Power of Heel Slicker Yes October 04, 2021 1:23pm Advance Directive Response Recorded Date/ Time Advance Directives Yes October 04 1:23pm Living Will Yes October 04, 2021 1 :23pm Power of Heel Slicker Yes October 04, 2021 1:23pm Advance Directive Response Recorded Date/ Time Advance Directives Yes October 04 1:23pm Living Will No February 09 5:05pm Power of Heel Slicker No February 09 5:05pm Advance Directive Response Recorded Date/ Time Name of Medical Power of Heel Slicker Rogelio Herrmann February 09, 2022 10:05pm Advance Directives Yes October 04 1:23pm Living Will Yes February 09 10:05pm Power of Heel Slicker Yes February 09 10:05pm Advance Directive Response Recorded Date/ Time Name of Medical Power of Heel Slicker Rogelio Herrmann February 09, 2022 10:05pm Name of Medical Power of Heel Slicker Martha Hdz, daughter February 12, 2022 10:23am Advance Directives Yes October 04 1:23pm Living Will Yes February 12 10:23am Power of Heel Slicker Yes February 12 10:23am Advance Directive Response Recorded Date/ Time Name of Medical Power of Heel Slicker Rogelio Herrmann February 09, 2022 10:05pm Name of Medical Power of Heel Slicker Martha Hdz, daughter February 12, 2022 10:23am Name of Medical Power of Heel Slicker Martha Hdz, daughter February 18, 2022 9:35am Advance Directives Yes October 04 1:23pm Living Will Yes February 18 9:35am Power of Heel Slicker Yes February 18, 2022 9:35am Advance Directive Response Recorded Date/ Time Name of Medical Power of Heel Slicker Rogelio Herrmann February 09, 2022 9:05pm Name of Medical Power of Heel Slicker Martha Hdz, daughter February 12, 2022 9:23am Name of Medical Power of Heel Slicker Martha Hdz, daughter February 18, 2022 8:35am Advance Directives Yes October 04 12:23pm Living Will Yes February 18 8:35am Power of Heel Slicker Yes February 18, 2022 8:35am Advance Directive Response Recorded Date/ Time Name of Medical Power of Heel Slicker Rogelio Herrmann February 09, 2022 9:05pm Name of Medical Power of Heel Slicker Martha Hdz, daughter February 12, 2022 9:23am Name of Medical Power of Heel Slicker Martha Hdz, daughter February 18, 2022 8:35am Name of Medical Power of Heel Slicker svetlana gotti-son April 10, 2022 6:40pm Advance Directives Yes October 04 12:23pm Living Will Yes April 10 022 6:40pm Power of Heel Slicker Yes April 10, 2022 6:40pm Advance Directive Response Recorded Date/ Time Name of Medical Power of Heel Slicker Rogelio Herrmann February 09, 2022 9:05pm Name of Medical Power of Heel Slicker Martha Hdz, daughter February 12, 2022 9:23am Name of Medical Power of Heel Slicker Martha Hdz, daughter February 18, 2022 8:35am Name of Medical Power of Heel Slicker martha yung - daughter April 10, 2022 10:43pm Advance Directives Yes October 04 12:23pm Living Will Yes April 10 022 10:43pm Power of Heel Slicker Yes April 10, 2022 10:43pm Advance Directive Response Recorded Date/ Time Name of Medical Power of Heel Slicker Rogelio Herrmann February 09, 2022 9:05pm Name of Medical Power of Heel Slicker Martha Hdz, daughter February 12, 2022 9:23am Name of Medical Power of Heel Slicker Martha Hdz, daughter February 18, 2022 8:35am Name of Medical Power of Heel Slicker martha yung - daughter April 10, 2022 10:43pm Advance Directives Yes October 04 2 12:23pm Living Will No May 18 3 4:38pm Power of Heel Slicker No May 18 023 4:38pm Advance Directive Response Recorded Date/ Time Advance Directives Yes October 04 2 1:23pm Living Will No May 18 3 5:38pm Power of Heel Slicker No May 18 2 023 5:38pm Advance Directive Response Recorded Date/ Time Advance Directives Yes October 04 2 12:23pm Living Will No May 18 3 4:38pm Power of Heel Slicker No May 18 2 023 4:38pm Advance Directive Response Recorded Date/ Time Name of Medical Power of Heel Slicker martha hdz / daughter May 12, 2023 7:36am Advance Directives Yes October 04 12:23pm Living Will Yes May 12 7:36am Power of Heel Slicker Yes May 12 7:36am Advance Directive Response Recorded Date/ Time Advance Directives Yes October 04 1:23pm Living Will Yes May 12 8:36am Power of Heel Slicker Yes May 12 8:36am Name of Medical Power of Heel Slicker martha hdz / daughter May 12, 2023 8:36am Advance Directive Response Recorded Date/ Time Advance Directives Yes October 04 1:23pm Living Will Yes May 12 8:36am Power of Heel Slicker Yes May 12 8:36am Date Activated Date [...] Yes November 03, 2023 6:47pm Power of Heel Slicker Yes November 02 6:47pm Living Will Yes May 11 12:52pm Power of Heel Slicker Yes May 11, 2024 12:52pm Name of Medical Power of Heel Slicker martha May 11, 2024 12:52pm Living Will Yes May 18 10:49am Power of Heel Slicker Yes May 18 10:49am Name of Medical Power of Heel Slicker Martha Hdz, daughter May 18, 2024 10:49am Living Will Yes May 31 4:39pm Power of Heel Slicker Yes May 31, 2024 4:39pm Name of Medical Power of Heel Slicker Martha Hdz, daughter May 31, 2024 4:39pm Living Will Yes July 01 5:00pm Power of Heel Slicker Yes July 01, 2024 5:00pm Name of Medical Power of Heel Slicker Martha Hdz, daughter July 01, 2024 5:00pm Living Will No June 26 025 1:31pm Power of Heel Slicker No June 26, 2024 1:31pm Advance Directives Yes October 04 1:23pm Advance Directive Response Recorded Date/ Time Living Will Yes November 03, 2023 6:47pm Do you have a Healthcare Pow er of Heel Slicker? Yes November 03, 2023 6:47pm Living Will Yes May 11 12:52pm Do you have a Healthcare Pow er of Heel Slicker? Yes May 11, 2024 12:52pm Name of Medical Power of Heel Slicker martha May 11, 2024 12:52pm Living Will Yes May 18 10:49am Do you have a Healthcare Pow er of Heel Slicker? Yes May 18, 2024 10:49am Name of Medical Power of Heel Slicker Martha Hdz, daughter May 18, 2024 10:49am Living Will Yes May 31 4:39pm Do you have a Healthcare Pow er of Heel Slicker? Yes May 31, 2024 4:39pm Name of Medical Power of Heel Slicker Martha Hdz, daughter May 31, 2024 4:39pm Living Will Yes July 01 5:00pm Do you have a Healthcare Pow er of Heel Slicker? Yes July 01, 2024 5:00pm Name of Medical Power of Heel Slicker Martha Hdz, daughter July 01, 2024 5:00pm Living Will Yes August 30, 2024 10:27am Do you have a Healthcare Pow er of Heel Slicker? Yes August 30, 2024 10:27am Name of Medical Power of Heel Slicker ASHLEY THOMAS August 30, 2024 10:27am Living Will No June 26 025 1:31pm Do you have a Healthcare Pow er of Heel Slicker? No June 26, 2024 1:31pm Advance Directives Yes October 04 1:23pm Advance Directive Response Recorded Date/ Time Living Will Yes November 03, 2023 6:47pm Do you have a Healthcare Pow er of Heel Slicker? Yes November 03, 2023 6:47pm Living Will Yes May 31 4:39pm Do you have a Healthcare Pow er of Heel Slicker? Yes May 31, 2024 4:39pm Name of Medical Power of Heel Slicker Martha Hdz, daughter May 31, 2024 4:39pm Living Will Yes July 01 025 5:00pm Do you have a Healthcare Pow er of Heel Slicker? Yes July 01, 2024 5:00pm Name of Medical Power of Heel Slicker Mratha Hdz, daughter July 01, 2024 5:00pm Living Will Yes August 30, 2024 2:42pm Do you have a Healthcare Pow er of Heel Slicker? Yes August 30, 2024 2:42pm Name of Medical Power of Heel Slicker DAUGHTER MARTHA August 30, 2024 2:42pm Do you have a Healthcare Pow er of Heel Slicker? Yes September 01, 2024 3:03am Do you have a Healthcare Pow er of Heel Slicker? Yes October 01, 2024 4:22pm Living Will No June 26 1:31pm Do you have a Healthcare Pow er of Heel Slicker? No June 26, 2024 1:31pm Do you have a Healthcare Pow er of Heel Slicker? Yes October 03, 2024 7:05pm Advance Directives Yes October 04 1:23pm Advance Directive Response Recorded Date/ Time Living Will Yes November 03, 2023 6:47pm Do you have a Healthcare Pow er of Heel Slicker? Yes November 03, 2023 6:47pm Living Will Yes May 31 4:39pm Do you have a Healthcare Pow er of Heel Slicker? Yes May 31, 2024 4:39pm Name of Medical Power of Heel Slicker Martha Hdz, daughter May 31, 2024 4:39pm Living Will Yes July 01 025 5:00pm Do you have a Healthcare Pow er of Heel Slicker? Yes July 01, 2024 5:00pm Name of Medical Power of Heel Slicker Martha Hdz, daughter July 01, 2024 5:00pm Living Will Yes August 30, 2024 2:42pm Do you have a Healthcare Pow er of Heel Slicker? Yes August 30, 2024 2:42pm Name of Medical Power of Heel Slicker DAUGHTER MARTHA August 30, 2024 2:42pm Do you have a Healthcare Pow er of Heel Slicker? Yes September 01, 2024 3:03am Do you have a Healthcare Pow er of Heel Slicker? Yes October 01, 2024 4:22pm Living Will No June 26 025 1:31pm Do you have a Healthcare Pow er of Heel Slicker? No June 26, 2024 1:31pm Do you have a Healthcare Pow er of Heel Slicker? Yes October 04, 2024 2:54am Advance Directives Yes October 04 1:23pm Date Activated Date Inactivated Comments 05/12/2024 7:20 AM Question Answer Comments Full Code Order Discussed With: Patient Advance Directive Response Recorded Date/ Time Living Will Yes November 03, 2023 6:47pm Do you have a Healthcare Pow er of Heel Slicker? Yes November 03, 2023 6:47pm Living Will Yes July 01 5:00pm Do you have a Healthcare Pow er of Heel Slicker? Yes July 01, 2024 5:00pm Name of Medical Power of Heel Slicker Martha Hdz, daughter July 01, 2024 5:00pm Living Will Yes August 30, 2024 2:42pm Do you have a Healthcare Pow er of Heel Slicker? Yes August 30, 2024 2:42pm Name of Medical Power of Heel Slicker ASHLEY THOMAS August 30, 2024 2:42pm Do you have a Healthcare Pow er of Heel Slicker? Yes September 01, 2024 3:03am Do you have a Healthcare Pow er of Heel Slicker? Yes October 01, 2024 4:22pm Do you have a Healthcare Pow er of Heel Slicker? Yes October 04, 2024 2:54am Advance Directives Yes October 04 1:23pm Advance Directive Response Recorded Date/ Time Living Will Yes November 03, 2023 6:47pm Do you have a Healthcare Pow er of Heel Slicker? Yes November 03, 2023 6:47pm Living Will Yes July 01 5:00pm Do you have a Healthcare Pow er of Heel Slicker? Yes July 01, 2024 5:00pm Name of Medical Power of Heel Slicker Martha Hdz, daughter July 01, 2024 5:00pm Living Will Yes August 30, 2024 2:42pm Do you have a Healthcare Pow er of Heel Slicker? Yes August 30, 2024 2:42pm Name of Medical Power of Heel Slicker ASHLEY THOMAS August 30, 2024 2:42pm Do you have a Healthcare Pow er of Heel Slicker? Yes September 01, 2024 3:03am Do you have a Healthcare Pow er of Heel Slicker? Yes October 01, 2024 4:22pm Do you have a Healthcare Pow er of Heel Slicker? Yes October 04, 2024 2:54am Do you have a Healthcare Pow er of Heel Slicker? Yes November 17, 2024 1:02pm Name of Medical Power of Heel Slicker Martha Borges November 17, 2024 1:02pm Advance Directives Yes October 04 1:23pm Advance Directive Response Recorded Date/ Time Living Will Yes August 30, 2024 2:42pm Do you have a Healthcare Pow er of Heel Slicker? Yes August 30, 2024 2:42pm Name of Medical Power of Heel Slicker DAUGHTER BONITA DRAPER August 30, 2024 2:42pm Do you have a Healthcare Pow er of Heel Slicker? Yes September 01, 2024 3:03am Do you have a Healthcare Pow er of Heel Slicker? Yes October 01, 2024 4:22pm Do you have a Healthcare Pow er of Heel Slicker? Yes October 04, 2024 2:54am Do you have a Healthcare Pow er of Heel Slicker? Yes November 17, 2024 1:02pm Name of Medical Power of Heel Slicker Martha Shah wyatt November 17, 2024 1:02pm Advance Directives Yes October 04 1:23pm Summary Purpose Reason for Referral Specialty Diagnoses / Procedures Referred By Contaguilar t Referred To Contact CT IMAGING Diagnoses SAH (subarachnoid hemorrhage) (HCC) Procedures CT BRAIN WO IVCON CT HEAD/BRAIN W/O CONTRAST MATERIAL Faby Orozco, TUGGER OPERATOR.CORPORATE CONSULTANT [address] [place] [address] [place] [address] Referral ID Status Reason Start Date Expiration Date Visits Requested Visits Authorized [id number] New Request Auto-Generat ed Referral 06/13/2024 06/12/2025 [...] Primary Care Provider Activ e Richa Arrieta LUBE TECHNICIAN, LUBE TECHNICIAN-C Attending Provider Active Team Status: Inactive Member [...] Attending Provider Active Dr. Nichole Abarca , DO Other Provider Active Team Status: Inactive Member [...] Swenson MD Primary Care Provider Activ salvador Lyon MD Attending Provider Active Team Status: Active Member Role Status Dates Dr. Doyle Swenson MD Primary Care Provider Activ salvador Lyon MD Attending Provider Active Team Status: [...] Care Provider Activ salvador Charles MD Attending Provider Active Team Status: Inactive Member Role Status Dates Dr. Doyle Swenson MD Primary Care Provider Activ e Tianna Ferrell NP-C Attending Provider Active Team Status: Inactive Member [...] Swenson MD Primary Care Provider Acti ve LUBE TECHNICIAN. Aurora Esquivel Attending Provider, Referring Provid er Active Steel Floor Pan Placing Supervisor Relationship Specialty Start Date End Date Bridget Swenson MD [address] [place] [address] PCP - General Family Medicine 05/14/24 Cari Wong MD, PhD [address] [id number] Cerebrovascular 05/19/24 Steel Floor Pan Placing Supervisor Relationship Specialty Start Date End Date Bridget Swenson MD [address] [facility] [place] [address] PCP - General Family Medicine 05/14/24 Cari Wong MD, PhD [address] [place] [address] Cerebrovascular 05/19/24 Steel Floor Pan Placing Supervisor Relationship Specialty Start Date End Date Bridget Swenson MD [address] [place] [id number] PCP - General Family Medicine 05/14/24 Cari Wong MD, PhD [address] [place] [address] Cerebrovascular 05/19/24 Steel Floor Pan Placing Supervisor Relationship Specialty Start Date End Date Bridget Swenson MD [address] [place] [id number] PCP - General Family Medicine 05/14/24 Cari Wong MD, PhD [address] [place] [address] Cerebrovascular 05/19/24 Team Status: Active Member Role Status Dates Dr. Bridget wSenson MD Primary Care Provider Acti ve Team [...] May 11, 2024 Dr. Tylor Hendrickson DO Emergency Provider Active Start: May [...] 30, 2024 End: July 26, 2024 Sofia Mingo , LUBE TECHNICIAN-C Other Provider Active Sta rt: June 30, 2024 End: July 26, 2024 Monik Crocker LUBE TECHNICIAN, LUBE TECHNICIAN-C Other Provider Active Start: June 30, 2024 End: July 26, 2024 RM Combs Other Provider Active Start: Aaliyah alba 2024 End: July 26, 2024 Team Status: Inactive Member Role Status Dates Dr. Bridget Swenson MD Primary Care Provider Acti ve Start: July 26, 2024 End: July 26, 2024 Dr. Bridget Swenson MD Referring Provider Active Start: July 26, 2024 End: July 26, 2024 Tarik Sen LUBE TECHNICIAN, LUBE TECHNICIAN-C Attending Provider Active S tart: July 26, [...] Start: September 02, 2024 Dr. Juan José Suarze DO Other Provider Active Start: September 02, [...] 04, 2024 Dr. Juan José Suarez , Attending Provider Active Start: October 04, 2024 [...] Ayesha Choi MD Other Provider Active Start: Ms 2024 Dr. Jean Carlos Fritz MD Other [...] October 06, 2024 Dr. Diana Snow , DO Emergency [...] Ayesha Choi MD Other Provider Active Start: [facility] 2024 Dr. Jean Carlos Fritz MD Other Provider Active Start: October 06, 2024 Mary Montalvo MD Other Provider Active Start : October 06, 2024 Dr. Clementine Martel , Other Provider Active St art: October 06, 2024 Dr. Emmie Daiz MD Other Provider Active Start: October 06, [...] Other Provider Active Start: October 09, 2024 Steel Floor Pan Placing Supervisor Relationship Specialty Start Date End Date Generic Provider, No Assigned Pcp, [place] [address] PCP - General First Crusher 10/12/24 10/12/24 Bridget Swenson MD [address], [place] [id number] PCP - General Family Medicine 10/13/24 Team Status: Inactive Member Role Status Dates Dr. 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 Bridget Swenson MD Primary Care Provider Acti ve Start: September 06, 2024 End: September 06, 2024 Richa Arrieta LUBE TECHNICIAN, LUBE TECHNICIAN-C Attending Provider Active Start: September 06, 2024 [...] 2024 End: July 26, 2024 Monik Crocker LUBE TECHNICIAN, LUBE TECHNICIAN-C Other Provider Active Start: June 30, 2024 End: July 26, 2024 RM Combs Other Provider Active Start: Aaliyah alba 2024 End: July 26, 2024 Team Status: Inactive Member Role/Relationship Status Dates Dr. Bridget Swenson MD Primary Care Provider Acti ve Start: July 26, 2024 End: July 26, 2024 Dr. Bridget Swenson MD Referring Provider Active Start: July 26, 2024 End: July 26, 2024 Tarik Sen LUBE TECHNICIAN, LUBE TECHNICIAN-C Attending Provider Active S tart: July 26, [...] Active Star t: August 31, 2024 Ayesha Chio MD Other Provider Active Start: 2024 Dr. [...] 2024 End: September 06, 2024 Richa Arrieta LUBE TECHNICIAN, LUBE TECHNICIAN-C Attending Provider Active Start: September 06, 2024 [...] ve Start: October 04, 2024 Dr. Diana Godman , DO Emergency Provider Active Start: October [...] Ayesha Choi MD Other Provider Active Start: Ms 2024 Dr. Jean Carlos Fritz MD Other [...] Active Start : October 05, 2024 Dr. Jhon Ye MD Other Provider Active Sta rt: October 05, 2024 oRla Campos MD Other Provider Active Start : [...] October 06, 2024 Dr. Diana Snow , DO Emergency [...] Ayesha Choi MD Other Provider Active Start: Ms 2024 Dr. Jean Carlos Fritz MD Other Provider Active Start: October 06, 2024 Mary Montalvo MD Other Provider Active Start : October 06, 2024 Dr. Clementine Martel , DO Other [...] October 09, 2024 Dr. Diana Snow , Emergency Provider [...] Start: October 07, 2024 Dr. Diana Snow DO Emergency Provider Active Start: October 07, 2024 Dr. Juan José Suarez DO Admit Provider Active Start: October 07, 2024 Dr. Juan José Suarez DO Other Provider Active Start: October 07, [...] 2024 End: November 19, 2024 Sho Andino LUBE TECHNICIAN, LUBE TECHNICIAN-C Attending Provider Active Start: November 19, 2024 [...] Provider Active Start: August 31, 2024 Dr. Lalya Craig MD Admit Provider Active Star t: [...] Start: September 03, 2024 Dr. Scooby Mobley , Emergency Provider Active Start: September 03, 2024 [...] 2024 End: September 06, 2024 Richa Arrieta LUBE TECHNICIAN, LUBE TECHNICIAN-C Attending Provider Active Start: September 06, 2024 [...] Ayesha Choi MD Other Provider Active Start: Ms 2024 Dr. Jean Carlos Fritz MD Other [...] October 06, 2024 Dr. Diana Snow , DO Emergency [...] Ayesha Choi MD Other Provider Active Start: Ms joel 2024 Dr. Jean Carlos Fritz MD Other Provider Active Start: October 06, 2024 Mary Montalvo MD Other Provider Active Start : October 06, 2024 Dr. Clementine Martel , DO Other [...] Other Provider Active Start: October 06, 2024 JoséM iguel Bowman MD Other Provider Active Start: October 06, 2024 Team Status: Inactive Member Role/Relationship Status Dates Dr. Bridget Swenson MD Primary Care Provider Acti ve Start: October 06, 2024 End: October 09, 2024 Dr. Diana Snow DO Emergency Provider Active Start: October 06, 2024 End: October 09, 2024 Dr. Juan José Suarez DO Admit Provider Active Start: October 06, 2024 End: October 09, 2024 Dr. Juan José Suarez DO Other Provider Active Start: October 06, 2024 End: October 09, 2024 Dr. Santino Haas DO Attending Provider Active Start: October 06, 2024 End: October 09, 2024 Team Status: Active Member Role/Relationship Status Dates Dr. Bridget Swenson MD Primary Care Provider Acti ve Start: October 07, 2024 Dr. Diana Snow DO Emergency Provider Active Start: October 07, 2024 Dr. Juan José Suarez DO Admit Provider Active Start: October 07, 2024 Dr. Juan José de Maurilio , [...] November 17, 2024 Dr. Tylor Hendrickson , Attending Provider Active Start: November 17, 2024 [...] 2024 End: November 19, 2024 Sho Andino LUBE TECHNICIAN, LUBE TECHNICIAN-C Attending Provider Active Start: November 19, 2024 End: November 19, 2024 Team Status: Inactive Member Role/Relationship Status Dates Dr. Bridget Swenson MD Primary Care Provider Acti ve Start: November 19, 2024 End: November 19, 2024 Sho Andino NP, LUBE TECHNICIAN-C Attending Provider Active Start: November 19, 2024 End: November 19, 2024 Sho Andino NP, NP-Jing Referring Provider Active Start: November 19, 2024 End: November 19, 2024 Team Status: Inactive Member Role/Relationship Status Dates Dr. Bridget Swenson MD Primary Care Provider Acti ve Start: December 17, 2024 End: December 17, 2024 Dr. Bridget Swenson MD Referring Provider Active Start: December 17, 2024 End: December 17, 2024 Sho Andino NP, LUBE TECHNICIAN-C Attending Provider Active Start: December 17, 2024 End: December 17, 2024 INFORMATION SOURCE (unrecogn ized section and content) DATE CREATED AUTHOR 05/21/2024 [facility] DATE CREATED AUTHOR AUTHOR'S ORGANIZ ATION 07/08/2024 [facility] DATE CREATED AUTHOR AUTHOR'S ORGANIZ ATION 10/14/2024 [facility] DATE CREATED AUTHOR AUTHOR'S ORGANIZ ATION 11/06/2024 [facility] DATE CREATED AUTHOR AUTHOR'S ORGANIZ ATION 02/24/2025 [facility] Source Comments (unrecognize d section and content) In the event this informatio n is protected by the Federal Confidentiality of Alcohol and Drug Abuse Patient Records regulations: The Federal rules restrict any use of the information to criminally investigate or prosecute any alcohol or drug abuse patient.[facility] the event this information is protected by the Federal Confidentiality of Alcohol and Drug Abuse Patient Records regulations: The Federal rules restrict any use of the information to criminally investigate or prosecute any alcohol or drug abuse patient.[facility] the event this information is protected by the Federal Confidentiality of Alcohol and Drug Abuse Patient Records regulations: The Federal rules restrict any use of the information to criminally investigate or prosecute any alcohol or drug abuse patient.[facility] the event this information is protected by the Federal Confidentiality of Alcohol and Drug Abuse Patient Records regulations: The Federal rules restrict any use of the information to criminally investigate or prosecute any alcohol or drug abuse patient.[facility] the event this information is protected by the Federal Confidentiality of Alcohol and Drug Abuse Patient Records regulations: The Federal rules restrict any use of the information to criminally investigate or prosecute any alcohol or drug abuse patient.[facility] the event this information is protected by the Federal Confidentiality of Alcohol and Drug Abuse Patient Records regulations: The Federal rules restrict any use of the information to criminally investigate or prosecute any alcohol or drug abuse patient.[facility] the event this information is protected by the Federal Confidentiality of Alcohol and Drug Abuse Patient Records regulations: The Federal rules restrict any use of the information to criminally investigate or prosecute any alcohol or drug abuse patient.[facility] the event this information is protected by the Federal Confidentiality of Alcohol and Drug Abuse Patient Records regulations: The Federal rules restrict any use of the information to criminally investigate or prosecute any alcohol or drug abuse patient.[facility] Reason for Visit (unrecogniz ed section and content) Reason Onset Date Comments nsgy DIA-family 05/19/2024 Reason Onset Date Comments nsgy DIA 05/19/2024 Reason Comments Opened In Error Reason Comments Hospital Discharge Reason Comments Altered Mental Status Via AFD from [facility]. Facility RN reports she woke up yelling/flailing. LKW 2030 when staff put her to bed. Mari [facility]AN met in [facility] Reason Comments Critical Care Transport Specialty Diagnoses / Procedures Referred By Contac t Referred To Contact HOSP INPATIENT Diagnoses ICH Procedures [facility] IP/OBS CARE HIGH MDM 75 MINUTES Hosp Main [id number] [address] [id number] Referral ID Status Reason Start Date Expiration Date Visits Re quested Visits Authorized [id number] 1 Scheduled Active and Recently Administ [...] BE BASED ON THE PRIMARY CLINICAL RECORDS. [employer] provides no warranty or guarantee of the accuracy or completeness of information in this document.
[2025-03-04 11:41] LABS: Pro- Brain NATRIURETIC PEPTIDE 849 pg/mL (<=1800)
[2025-03-04 11:43] LABS: Anion Gap 14 (5-15); BUN 33 mg/dL (4-19); BUN/Creat Ratio 34.8 RATIO (10-20); Calcium,Total 10.2 mg/dL (7.6-11.0); Carbon Dioxide 24.9 mmol/L (21.0-32.0); Chloride 98 mmol/L (98-108); Glucose 107 mg/dL (70-99); Potassium 4.4 mmol/L (3.3-5.1)
== END ==
PROVIDERS: PCP Family Medicine; Visit Provider Family Medicine
DX: R60.9 Edema, unspecified (principal)
CPT/HCPCS: 36415; 80048; 83880

== ENCOUNTER 2025-03-15 16:03 | Outpatient (CLI) | payer MEDICARE, BC, SELFPAY ==
--- NOTE | 2025-03-15 16:06 | RAD_ITS ---
EXAM: XR Left Ribs, 2 Views CLINICAL INDICATION: PAIN LEFT SIDE, FELL OVER A YEAR AGO TECHNIQUE: Frontal and oblique views of the left ribs. COMPARISON: No relevant prior studies available. FINDINGS: LUNGS AND PLEURAL SPACES: Unremarkable as visualized. No consolidation. No pneumothorax. BONES/JOINTS: Cortical irregularly of the lateral 10th and 11th ribs could be nondisplaced fracture. RAD/Ribs Unil 2V No CXR IMPRESSION: Cortical irregularly of the lateral 10th and 11th ribs could be nondisplaced fr acture. Reading [facility]
--- NOTE | 2025-03-15 16:06 | RAD_ITS ---
PROCEDURE: CHEST PA AND LATERAL 03/15/2025 REASON FOR EXAM: PAIN TECHNIQUE: Procedure Code: RADCXR Modality: DX Procedure: CHEST PA AND LATERAL COMPARISON: 11/17/2024. FINDINGS: The lungs are hypoaerated limiting assessment. Mild right basilar opacity which may represent atelectasis or infiltrate. The heart is enlarged. No acute osseous abnormalities. RAD/Chest PA and Lateral IMPRESSION: Pulmonary findings as above. Reading Location: [id number]
[2025-03-15 16:15] LABS: Mucous, Urine 0 SEEN /hpf (<or=2+)
[2025-03-15 17:40] LABS: Hematocrit 37.6 % (37-47); Hemoglobin 11.8 g/dL (12.0-15.0); Immature Granulocytes Count 0.020 X10^3/uL (0.0-0.0); Mean Corp Hgb Conc 31.4 g/dL (32-36); Mean Corpuscular Volume 87.9 fL (81-99); Mean Platelet Vol. 10.1 fl (6.2-12.0); NRBC Flagged by Analyzer 0 % (0-5); Platelet Count 331 K/mm3 (150-450); RBC Distribution Width CV 13.8 % (11.6-14.6); RBC Distribution Width SD 44.4 fl (35.1-43.9); Red Blood Count 4.28 M/mm3 (4.2-5.4); White Blood Count 7.6 K/mm3 (4.4-11.0)
[2025-03-15 17:58] LABS: Color, Urine Yellow (Yellow); Glucose, Dipstick Normal (Normal); Ketone-Dipstick Negative (Negative); Leukocyte Esterase-Dipstick 25 /ul (Negative); Nitrite-Dipstick Negative (Negative); Occult Blood-Urine 10 /ul (Negative); Protein-Dipstick 30 mg/dl (Negative); Specific Gravity, Urine 1.015 (1.002-1.030); Urine Bilirubin Dipstick Negative (Negative)
[2025-03-15 18:08] LABS: PTHIN 28 pg/mL (11-61)
[2025-03-15 18:09] LABS: Red Blood Cells-Urine 0-5 SEEN /hpf (0-5); Squamous Epithelial Cells - UA 0-5 SEEN /hpf (5-10)
[2025-03-15 18:42] LABS: AST(SGOT) 26 U/L (<=31); Alanine Aminotransfer ALT/SGPT 8 U/L (<=34); Albumin, Serum 4.0 g/dL (3.4-4.8); Alkaline Phosphatase 69 U/L (35-104); Anion Gap 12 (5-15); BUN 25 mg/dL (4-19); BUN/Creat Ratio 26.2 RATIO (10-20); Calcium,Total 10.3 mg/dL (7.6-11.0); Carbon Dioxide 31.7 mmol/L (21.0-32.0); Chloride 97 mmol/L (98-108); Globulin 2.8 g/dL (2.2-4.2); Glucose 102 mg/dL (70-99); Magnesium 2.2 mg/dL (1.5-2.2); Potassium 3.5 mmol/L (3.3-5.1); Pro- Brain NATRIURETIC PEPTIDE 2527 pg/mL (<=1800); Vitamin D,25 Hydroxy 68.9 ng/mL (30-100)
== END 2025-03-15 23:59 | disposition home or self-care (01) ==
LOC: MTLAB 16:06
PROVIDERS: PCP Family Medicine; Referring Provider Family Medicine; Visit Provider Family Medicine
DX: R52 Pain, unspecified (principal); R44.3 Hallucinations, unspecified; R53.83 Other fatigue; E83.52 Hypercalcemia
CPT/HCPCS: 36415; 71046; 71100; 80053; 81001; 82306; 83735; 83880; 83970; 84443; 85025; 85652; 87086

== ENCOUNTER → 2025-03-22 05:00 | Outpatient (REF) | payer MEDICARE, BC, SELFPAY ==
--- OUTSIDE RECORDS SUMMARY | 2025-03-22 04:31 | XMS RPT_ITS | CCD ---
Author Organization [facility] Care Team Providers Care [employer] Name Role Phone Starla PRICE, Yenny Oviedo [...] Dr. Doyle Swenson Primary Care Provider [phone] Dr. Doyle Swenson Referring Provider Adriana WORSHIP DIRECTOR, WORSHIP DIRECTOR-Jing Lombardi Attending Provider [phone] Dr. Doyle Swenson Primary Care Provider Francy WORSHIP DIRECTOR, WORSHIP DIRECTOR-Jing Arce Attending Provider Dr. Doyle Swenson Primary Care Provider Dr. Doyle Swenson Referring Provider Adriana WORSHIP DIRECTOR, WORSHIP DIRECTOR-C Nallely Lombardi Attending Provider [phone] Dr. [phone] Dr. Doyle Swenson Referring Provider Adriana WORSHIP DIRECTOR, WORSHIP DIRECTOR-C Nallely Lombardi Attending Provider [phone] [facility] WORSHIP DIRECTOR, WORSHIP DIRECTOR-C Tarik Arce Attending Provider Dr. Tylor Hendrickson [...] Dr. Doyle Swenson Primary Care Provider [place] WORSHIP DIRECTOR, WORSHIP DIRECTOR-C Richa Attending Provider Dr. Doyle Ortega Primary [...] Provider Dr. Hood Maza Other Provider [place] WORSHIP DIRECTOR, WORSHIP DIRECTOR-C Richa Attending Provider Dr. Doyle Ortega Primary Care Provider [place]ton WORSHIP DIRECTOR, WORSHIP DIRECTOR-C Richa Attending Provider Dr. Doyle Ortega Primary [...] Dr. Bridget Swenson MD Referring Provider [phone] Dr. Tylor Hendrickson DO Attending Provider Dr. [...] Ginny URBAN, Dr. Wilkinson Other Provider Mingo WORSHIP DIRECTOR-C, Sofia Other Provider Unavailabl e Lizzette WORSHIP DIRECTOR-C, Monik Other Provider [phone] Min PA, Nelsy Other Provider Leela URBAN, Dr. Savage Primary Care Provider Leoncio URBAN, Dr. Snider Attending Provider Leela URBAN, Dr. Savage Attending Provider [phone] Leela URBAN, Dr. Savage Referring Provider [facility] WORSHIP DIRECTOR-C, Tarik Attending Provider Mary Jane SIMMONS, Dr. [...] Provider Loida URBAN, Dr. Nur Other Provider [phone] Jose Raul URBAN, Dr. Nicole Other Provider Unavailable Colby URBAN, José Miguel Other Provider Unavailable Nate URBAN, Dr. Soto Attending Provider Abby URBAN, Dr. Cleary Attending Provider Nate URBAN, Dr. Soto Other Provider [phone] Scooby Mobley DO Emergency Provider Dr. [...] Leela URBAN, Dr. Savage Referring Provider [phone] Meenakshi FRANKS-CRicha Attending Provider Sonali URBAN, Dr. Raymundo Attending Provider NICHOLE GUERRA Attending Unavailable BRIDGET SWENSON COLLEEN Primary Care Unavail able Elizabet SIMMONS, Dr. Snider Referring Provider Elizabet SIMMONS, Dr. Snider Emergency Provider Sina MCKEON, Sho Attending Provider Leela URBAN, Dr. Savage Primary Care Provider Elizabet SIMMONS, Dr. Snider Attending Provider Leela URBAN, Dr. Savage Referring Provider [phone] Sina FRANKS-C, Sho Referring Provider Bridget Swenson Primary Care Unavailable Charles Sullivan Attending Unavailable Juan José Suarez Admitting Unavailable Juan José Suarez Consulting Unavailable Bridget Swenson Primary Care Unavailable Charles Sullivan Attending Unavailable Layla Craig Admitting Unavailable Ayesha Choi Consulting Unavailable Adeli, Amir Consulting Unavailable Hinduja, Mary Consulting Unavailable Delonte, Clementine Consulting Unavailable Zha, Emmie Consulting Unavailable Adarsh, Mega Consulting Unavailable Otilio, Fay Consulting Unavailable Bittar, Robert Consulting Unavailable Camilo Abernathy Consulting Unavailable John Ye Consulting Unavailable Rola Campos Consulting Unavailable Gertrudis Mckee Consulting Unavailable Giselle Wheatley Consulting Unavailable RidAbram toro Consulting Unavailable Dhara, Trad Leander Consulting UnavailDuglas Ware Consulting Unavailable Rayna Jordan Consulting Unavailable Boom Mariscal Consulting Unavailable Bonnie Blunt Consulting Unavailable José Miguel Bowman Consulting Unavailable Layla Craig Consulting Unavailable Bridget Swenson Primary Care Unavailable Rolando, Aleks Chi Attending Unavailable Juan José Marshall Consulting Unavailable Rolando, Aleks Chi Admitting Unavailable Marisol Prather Consulting Unavailable Jaja Gross Consulting Unavailable Mingo, Sofia Consulting Unavailable Lizzette WORSHIP DIRECTOR, Monik Consulting Unavailable Min, Nelsy Consulting Unavailable Juan José Suarez Admitting Unavailable Juan José Suarez Consulting Unavailable Santino Haas Attending Unavailable [facility] Primary Care Unavailable Ranaltus BRENDA, Bridget Attending Unavaila [facility] Primary Care Unavailable Ranroberth GUTIERREZ, Christopher Attending Unavaila ble [facility] Unavailable Ranney OLS, Christopher Attending Unavaila ble [facility] Primary Care Unavailable [facility], Christopher Attending Unavailable [facility] Primary Care Unavailable Rolando, Aleks Chi Attending Unavailable Rolando, Aleks Chi Referring Unavailable [facility] Primary Care Unavailable Vinayak Mendenhall Referring Unavailable Vinayak Mendenhall Attending Unavailable [facility] Primary Care Unavailable [facility], [facility] Referring Unavailable RanaltusBridget Attending Unavailable [facility] Primary Care Unavailable Tylor Hendrickson Attending Unavailable Tylor Hendrickson Referring Unavailable [facility] Primary Care Unavailable RanBridget Quintanilla Attending Unavaila ble [facility] Primary Care Unavailable Tylor Hendrickson Attending Unavailable [facility] Primary Care Unavailable [facility] Primary Care Unavailable Ayaz Hinton Attending Unavailable [facility] Care Unavailable Horace Horta Attending Unavailable Sho Andino Attending Unavailable Sho Andino Referring Unavailable [facility] Primary Care Unavailable Rolando, Aleks Chi Consulting Unavailable Rolando, Aleks Chi Admitting Unavailable Joyce Rousseau Attending Unavaila [facility] Primary Care Unavailable [facility] Primary Care Unavailable Oleghe BRENDA, Efewongbe Referring Unavailabl e Oleghe BRENDA Efewongbe Attending Unavailabl e Joyce Rousseau Consulting Unavaila ble Kite Efewongbe Attending Unavailable [facility] Primary Care Unavailable [facility] Referring Unavailable [facility] Primary Care Unavailable Tarik Sen NP Attending Unavailable [facility], [place] Referring Unavailable Sho Andino Attending Unavailable [facility] Primary Care Unavailable [facility], [facility] Referring Unavailable Sho Andino Attending Unavailable [facility] Primary Care Unavailable Richa Arrieta NP Attending Unavailable [facility] Care Unavailable Vinayak Mendenhall Referring Unavailable Tylor Fang Attending Unavailable [facility] Unavailable [facility] Care Unavailable Evin Mora Attending Unavailable [facility] Unavailable Lisha Sullivansh Attending Unavailable Craig, Layla Admitting Unavailable [place], Ayesha Consulting Unavailable Adeli, Amir Consulting Unavailable Hinduja, Mary Consulting Unavailable Delonte, Clementine Consulting Unavailable Zha, Emmie Consulting Unavailable Adarsh, Mega Consulting Unavailable Otilio, Fay Consulting Unavailable Bittar, Robert Consulting Unavailable Abernathy, Camilo Consulting Unavailable Ye, John Consulting Unavailable Beigel, Rola Consulting Unavailable Guscarol, Gertrudis Consulting Unavailable Dioni, Giselle Consulting Unavailable Ridjose, Mohamed Consulting Unavailable Dhara, Lizeth Leander Consulting UnavailDuglas Ware Consulting Unavailable Jordan, Rami Consulting Unavailable Loida, Boom Consulting Unavailable Bonnie Blunt Consulting Unavailable Hannaabraham, Tayoseaaliyah Consulting Unavailable Craig, Layla Consulting Unavailable Nate, Charles Consulting [facility] Unavailable Juan José Suarez Admitting Unavailable Juan José Suarez Consulting Unavailable Juan José Suarez Attending Unavailable Nate, Charles Attending Unavailable Nate, Charles Consulting Unavailable Juan José Suarez Admitting Unavailable Juan José Suarez Consulting Unavailable Juan José Suarez Attending Unavailable [facility] Care Unavailable Santino Haas Attending Unavailable Santino Haas Consulting Unavailable Steph, Ayesha Consulting Unavailable Adeli, Amir Consulting Unavailable Hinduja, Mary Consulting Unavailable Delonte, Clementine Consulting Unavailable Zha, Emmie Consulting Unavailable Adarsh, Mega Consulting Unavailable Otilio, Fay Consulting Unavailable Bittar, Robert Consulting Unavailable Abernathy, Camilo Consulting Unavailable Ye, John Consulting Unavailable Begeovanna, Rola Consulting Unavailable Guscarol, Gertrudis Consulting Unavailable Dioni, Giselle Consulting Unavailable Ridha, Mohamed Consulting Unavailable Zasaleemh, Lizeth Leander Consulting UnavailDuglas Ware Consulting Unavailable Jordan, Rami Consulting Unavailable Loida, Boom Consulting Unavailable Jose Raul, Bonnie Consulting Unavailable Colby, Yousef Consulting Unavailable Santino Haas Attending Unavailable Juan José Suarez Consulting Unavailable Juan José Suarez Admitting Unavailable [facility], [place] Primary Care Unavailable Santino Haas Consulting Unavailable Layla Craig Attending Unavailable Rolando, Aleks Chi Referring Unavailable Tylor Fang Attending Unavailable [facility] Unavailable Rolando, Aleks Chi Consulting Unavailable Rolando, Aleks Chi Admitting Unavailable Jyoce Rousseau Attending Unavaila ble [facility] Care Unavailable [facility] Primary Care Unavailable Rolando, Aleks Chi Attending Unavailable Rolando, Aleks Chi Referring Unavailable [facility] Referring Unavailable [facility] Primary Care Unavailable Ranaltus, Christtonyaer Attending Unavailable [facility], [facility] Referring Unavailable [facility], [place] Primary Care Unavailable Ranney, Ricer Attending Unavailable Rolando, Aleks Chi Attending Unavailable Rolando, Aleks Chi Admitting Unavailable [facility] Un[facility] Referring Unavailable Ranaltus, Christopher Attending Unavailable [facility] Unavailable Rolando, Aleks Chi Attending Unavailable Rolando, Aleks Chi Referring Unavailable [facility] Primary Care Unavailable Allergies Allergy Classification Reported Allergen(s) Allergy Type Date of Onset Reaction(s) Facility (20 sources) eggplant extract; Translations: [EGGPLANT] Drug Allergy 7 Hives [facility] Work Phone: [phone] (3 sources) gabapentin Drug Allergy 4 unknown [facility] Work Phone: [phone] (3 sources) meloxicam; Translations: [MOBIC] Drug Allergy 4 unknown [facility] Work Phone: [phone] (20 sources) mold extract; Translations: [MOLD] Drug Allergy 4 Hives [facility] Work Phone: [phone] (3 sources) penicillin; Translations: [PENICILLIN] Drug Allergy 1 hives [facility] Work Phone: [phone] (3 sources) risedronate Drug Allergy 4 unknown [facility] Work Phone: [phone] (20 sources) Silk; Translations: [SILK] allergy to substance 4 unknown, itching [facility] Work Phone: [phone] (3 sources) wheat; Translations: [WHEAT] food allergy 1 hives/swelling [facility] Work Phone: [phone] (13 sources) BEETS; Translations: [BEETS] food allergy 2 Rash [facility] Work Phone: [phone] (8 sources) CANTALOPE; Translations: [CANTALOPE] food allergy 4 hives [facility] Work Phone: [phone] (3 sources) MULTIPLE FOOD ALLERGIES; Translations: [MULTIPLE FOOD ALLERGIES] food allergy 1 hives/swelling [facility] Work Phone: [phone] (12 sources) PROCESSED FOODS; Translations: [PROCESSED FOODS] food allergy 1 hives/swelling, Hives [facility] Work Phone: [phone] (20 sources) Beets preparation Drug Allergy 2 [facility] (20 sources) cantaloupe allergenic extract; Translations: [CANTALOUPE] Drug Allergy 7 [facility] (20 sources) gabapentin; Translations: [GABAPENTIN] Drug Allergy 1 Other: See Comments [facility] (20 sources) levoFLOXacin Drug Allergy [address] [facility] (20 sources) meloxicam; Translations: [MELOXICAM] Drug Allergy 1 Other: See Comments [facility] (20 sources) oxyCODONE Drug Allergy [address] [facility] (20 sources) Penicillins; Translations: [PENICILLINS] Allergy to substance [address] [facility] (20 sources) Risedronate; Translations: [RISEDRONATE SODIUM] Drug Allergy 8 GI Upset [facility] (20 sources) tomato allergenic extract Drug Allergy 2 Food Allergy [facility] (20 sources) Wheat preparation Drug Allergy 2 [facility] (20 sources) CONCENTRATES Allergy to substance 2 [facility] (11 sources) fermented foods Allergy to substance [address] [facility] (20 sources) ceFAZolin Drug Allergy [address] [facility] (20 sources) Food Allergies: Uncoded; Translations: [Food Allergies: Uncoded] Allergy to substance [address] [facility] (10 sources) Alendronate; Translations: [ALENDRONATE SODIUM] Drug Allergy 8 GI Upset [facility] Rep[facility] (10 sources) pork allergenic extract; Translations: [PORK] Drug Allergy 1 Intolerance [facility] (10 sources) Wheat gluten extract; Translations: [WHEAT GLUTEN] Drug Allergy 7 Hives [facility] (10 sources) SUTURES; Translations: [SUTURES] Propensity to adverse reactions (disorder) 3 Itching [facility] (10 sources) ADHES. [id number] KONIUM; Translations: [ADHES. TUFG-[id number] KONIUM] Propensity to adverse reactions to drug (disorder) 8 [facility] (10 sources) YEAST, DRIED; Translations: [YEAST, DRIED] Propensity to adverse reactions to drug (disorder) 2 Hives [facility] Rep[facility] (1 source) Buttermilk; Translations: [BUTTERMILK] Propensity to adverse reactions to food (disorder) 5 [facility] Rep[facility] (1 source) Cheese; Translations: [CHEESE] Propensity to adverse reactions to drug (disorder) 5 [facility] (1 source) latif allergenic extract; Translations: [LATIF] Drug Allergy 5 [facility] Rep[facility] (13 sources) Shellfish; Translations: [SHELLFISH DERIVED] Propensity to adverse reactions to drug (disorder) 5 [facility] Rep[facility] (1 source) CRANBERRY FRUIT CONCENTRATE; Translations: [CRANBERRY FRUIT CONCENTRATE] Propensity to adverse reactions to drug (disorder) 5 [facility] Repository (1 source) SOYBEAN, FERMENTED; Translations: [SOYBEAN, FERMENTED] Propensity to adverse reactions to drug (disorder) 5 [facility] (1 source) TOMATOES; Translations: [TOMATOES] Propensity to adverse reactions to food (disorder) 5 [facility] Other [facility] (11 sources) DULoxetine Drug Allergy [address] [facility] (1 source) Beets preparation Drug Allergy [address] [facility] Repository (1 source) cantaloupe allergenic extract Drug Allergy [address] [facility] Repository (1 source) ceFAZolin Drug Allergy [address] [facility] Repository (1 source) DULoxetine Drug Allergy [address] [facility] Repository (1 source) gabapentin Drug Allergy [address] [facility] Repository (1 source) levoFLOXacin Drug Allergy [address] [facility] Repository (1 source) meloxicam Drug Allergy [address] [facility] Repository (1 source) oxyCODONE Drug Allergy [address] [facility] Repository (1 source) Risedronate Drug Allergy [address] [facility] Repository (1 source) tomato allergenic extract Drug Allergy [address] [facility] Repository (1 source) Wheat preparation Drug Allergy [address] [facility] Repository Medications Current Medications Medication Drug Class(es) [...] TABLET PO EVERY 4 HOURS NEEDED 18 March 12, 2022 January 28, 2023 2:21pm [...] TABS One tablet by mouth daily ASPIRIN [id number] Evin Mora MD Start: 07-29-2013 take 1 tablet by onofre th once daily ASPIRIN 81 MG TABS One tablet by mouth daily ASPIRIN [id number] Evin Mora MD Start: 07-29-2013 End: 02-12-2022 [...] 1000 UNIT CAPS 1 tab daily CHOLECALCIFEROL [id number] Maia ABDALLA Start: 01-17-2011 End: 07-29-2013 VITAMIN D 1000 UNIT CAPS 1 t ab daily CHOLECALCIFEROL [id number] Tana Gomez RN take 2 capsules by out once daily cholecalciferol (Vitamin D-3) 25 [...] left eye 4 times daily CIPROFLOXACIN HCL [id number] Cassandra Ramos RN Start: 07-29-2013 CILOXAN 0.3 % SOLN 1 dropp left eye 4 times daily CIPROFLOXACIN HCL [id number] Tana Gomez RN CPAP (3 sources) Start: [...] End: 02-12-2022 take 1 capsule by mo [facility] once daily docusate sodium (Colace) 100 [...] 21, 2018 11:16am take 1 tablet by [facility] twice daily furosemide (LASIX) 40 mg tablet [...] ACETAMINOPHEN 325 MG TABS as needed ACETAMINOPHEN [id number] Tana Gomez RN Start: 11-06-2007 End: 11-05-2023 [...] One tablet by mouth daily AMLODIPINE BESYLATE [id number] Evin Mora MD atenolol 50 mg oral [...] TABS One tablet by mouth daily ATENOLOL [id number] Evin Mora MD Start: 02-26-2013 End: 03-22-2018 [...] by mouth 2-3 times per day CALCIUM [id number] Maia ABDALLA calcium carbonate 1500 mg / [...] tablet by mouth daily CALCIUM CARBONATE-VITAMIN D [id number] Tana Gomez RN chlorthalidone 50 mg oral [...] One tablet by mouth daily CYCLOBENZAPRINE HCL [id number] Evin Mora MD 1 ml denosumab 60 mg/ml prefilled syringe (20 sources) RANK Ligand Inhibitor Start: 06-15-2024 End: 06-15-2024 inject 1 mL by subcutaneous injection once denosumab (PROLIA) 60 mg/mL Inject 1 mL subcutaneously one time only for 1 dose. 1 mL 06/15/2024 06/15/2024 Start: 10-08-2019 End: 07-25-2021 docusate sodium 50 mg / paige osides, fdc 8.6 mg oral tablet (20 sources) Start: [...] CAPS 1 tab by mouth daily GABAPENTIN [id number] Tana Gomez RN hydroCHLOROthiazide 25 mg or al tablet (20 sources) Thiazide Diuretic Start: 07-21-2018 End: 01-19-2019 Start: 08-11-2014 take 1 tablet by [facility] once daily HYDROCHLOROTHIAZIDE 12.5 MG TABS One tablet by mouth daily HYDROCHLOROTHIAZIDE [id number] Yenny Buckley PA-C Start: 08-11-2014 End: 03-14-2016 HYDROCHLOROTHIAZIDE 12.5 MG TABS as needed three times per week HYDROCHLOROTHIAZIDE [id number] Evin Mora MD lidocaine 0.05 mg/mg medicated [...] tab by mouth daily in am LISINOPRIL [id number] Tana Gomez RN 1 ml LORazepam 2 mg/ml injection [...] One tablet by mouth daily LOSARTAN POTASSIUM [id number] Evin Mora MD Start: 07-29-2013 take 1 tablet by onofre th once daily COZAAR 25 MG TABS One tablet by mouth daily LOSARTAN POTASSIUM [id number] Evin Mora MD magnesium chloride 598 mg delayed release oral tablet (20 sources) Start: 05-28-2024 End: 08-30-2024 Magnesium Hydroxide (20 sources) Start: 02-11-2022 End: 10-04-2022 take 1 mL by mouth once daily Magnesium Hydroxide Discontinued 30 ML PO DAILY 0 February 10, 2022 11:00pm February 12, 2022 5:31pm Start: 02-11-2022 End: 02-12-2022 take 1 mL by mouth once daily Magnesium Hydroxide Disc ontinued 30 ML PO DAILY February 11, 2022 12:00am February 12, 2022 [...] TABS One tablet by mouth daily SPIRONOLACTONE [id number] Evin Mora MD tamsulosin hydrochloride 0.4 mg oral capsule (20 sources) alpha-Adrenergic Sera Start: 05-28-2024 End: 08-30-2024 28 actuat teriparatide 0.02 mg/actuat pen injector (6 sources) Parathyroid Hormone Analog Start: 01-17-2011 End: 07-29-2013 FORTEO 600 MCG/2.4ML SOLN nosespray daily TERIPARATIDE (RECOMBINANT) [id number] Tana Gomez RN traMADol hydrochloride 50 mg oral tablet (20 sources) Opioid Agonist Start: 06-08-2024 End: 09-18-2024 Start: 02-09-2022 End: 02-11-2022 Start: 01-17-2011 End: 07-29-2013 ULTRAM 50 MG TABS 1 tab by jatin murillo as needed for pain TRAMADOL HCL [id number] Tana Gomez, ALBERT take 1 tablet by onofre th every six hours as needed traMADol (ULTRAM) 50 mg tablet Take 50 mg by mouth every 6 hours as needed for pain. Suspended vitamin d 1000 unt oral tablet (3 sources) Start: 03-10-2015 take 1 tablet by mouth once daily VITAMIN D 1000 UNIT TABS One tablet by mouth daily CHOLECALCIFEROL [id number] Evin Mora MD warfarin sodium 3 mg [...] 02-16-2022 Warfarin Activ e 4 MG PO SUMOWEFebruary 15, 2022 11:00pm Start: 02-16-2022 End: 03-12-2022 Start: 07-24-2021 End: 07-25-2021 Warfarin Discontinued 3 MG P O TUTH July 24, 2021 12:00am July 25, 2021 2:33pm Start: 08-04-2020 End: 02-12-2022 Start: 04-01-2018 End: 02-12-2022 Start: 05-18-2017 End: 03-22-2018 Start: 12-16-2016 take 1 tablet by onofre th once daily COUMADIN 1 MG TABS One tablet by mouth daily WARFARIN SODIUM [id number] Jaiden Winston MD Start: 11-06-2015 End: 05-18-2017 Start: 11-06-2015 End: 05-18-2017 Warfarin Discontinued 5 MG P O SRIVASTAVA November 06, 2015 12:00am May 18, 2017 2:33pm Start: 11-06-2015 End: 05-18-2017 Start: 08-26-2015 End: 05-18-2017 Start: 08-26-2015 End: 05-18-2017 Warfarin Discontinued 4 MG P O BRENDAETHFRSA August 26, 2015 12:00am May 18, 2017 2:33pm Start: 08-08-2015 COUMADIN 6 MG TABS 6 mg tablet on Sat and Sun, take 4mg tablet Friday through Friday WARFARIN SODIUM [id number] Evin Mora MD Start: 08-08-2015 COUMADIN 6 MG TABS Take as directed: Current dose: Take one tablet by mouth for one day and 4mg other days WARFARIN SODIUM [id number] Evin Mora MD Start: 11-17-2013 take 1 tablet by onofre th once daily COUMADIN 4 MG TABS One tablet by mouth daily except take 6 mg every Friday (1.5 tablets) WARFARIN SODIUM [id number] Evin Mora MD take 1 tablet by [...] Translations: [Chronic obstructive pulmonary disease, unspecified] Onset: 03-10-2025 Chronic Conditions associated with dizziness or vertigo (11 sources) Dizziness; Translations: [Dizziness and giddiness] 07-04-2024 Episodic Conduction disorders (20 sources) Incomplete right bundle branch block; Translations: [Unspecified right bundle-branch block] 10-07-2019 Chronic Deficiency and other anemia (20 sources) Iron deficiency anemia; Translations: [Iron deficiency anemia, unspecified] 02-11-2022 Episodic Deficiency and other anemia (19 sources) Iron deficiency anemia, unspecified; Translations: [Iron deficiency anemia, unspecified] Onset: 06-01-2024 Episodic Delirium, dementia, and amnestic and other [...] sources) Long-term current use of anticoagulant; 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: [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] Onset: 05-11-2024 07-24-2021 [...] Other hereditary and degenerative nervous system conditions (19 sources) Restless legs syndrome; Translations: [Restless legs [...] sources) Hypoxia; Translations: [Hypoxemia] 07-04-2024 Episodic Other nervous system disorders (20 sources) [...] Translations: [Altered mental status, unspecified] 10-13-2024 Episodic Residual codes; unclassified (1 source) Pain, unspecified; Translations: [Pain, unspecified] Onset: 03-17-2025 Episodic Retinal detachments; defects; vascular occlusion; and [...] [Other chest pain] Onset: 11-23-2024 11-17-2024 Episodic Other aftercare (1 source) 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 [facility] Comment on above: Performed By: #### L 101.9900, L100.0100, L500.4050, L501.5200, L509.1000, M100.2200, L501.9520, L400.0001 ####[facility] [address] [place], [address] CBC W/Diff, Automatedon 11-0 4-2024 Absolute Lymph 1.52 X10 3/uL Normal 0.83-4.[address] [facility] Comment on above: Order Comment: Order Date: 03/15/25Order Info: 0184-1 - CBCDOrder Info: [id number] - SED Performed By: #### L 101.9900, L100.0100, L500.4050, L501.5200, L509.1000, M100.2200, L501.9520, L400.0001 ####[facility] [address] [place] [place], [address] Absolute Neut 4.9 X10 3/uL Normal 2.0-7.[address] [facility] Comment on above: Order Comment: Order Date: 03/15/25Order Info: 018-1 - CBCDOrder Info: [id number] - SED Performed By: #### L 101.9900, L100.0100, L500.4050, L501.5200, L509.1000, M100.2200, L501.9520, L400.0001 ####[facility] [address] [place], [address] Basophils/100 WBC (Bld) 0.8 % Normal 0-1 [facility] Comment on above: Order Comment: Order Date: 03/15/25Order Info: 0184-1 - CBCDOrder Info: [id number] - SED Performed By: #### L 101.9900, L100.0100, L500.4050, L501.5200, L509.1000, M100.2200, L501.9520, L400.0001 ####[facility] [address] [place], [address] Eosinophils/100 WBC (Bld) 2.8 % Normal 0-[address] [facility] Comment on above: Order Comment: Order Date: 03/15/25Order Info: 01808-10 - CBCDOrder Info: [id number] - SED Performed By: #### L 101.9900, L100.0100, L500.4050, L501.5200, L509.1000, M100.2200, L501.9520, L400.0001 ####[facility] [address] [place], [address] Erythrocyte distribution width (RBC) [Ratio] 13.8 % Normal 11.6-14.[address] [facility] Comment on above: Order Comment: Order Date: 03/15/25Order Info: 183-05 - CBCDOrder Info: 97312-0 - SED Performed By: #### L 101.9900, L100.0100, L500.4050, L501.5200, L509.1000, M100.2200, L501.9520, L400.0001 ####[facility] [address], [address] Hematocrit (Bld) [Volume fraction] 37.6 % Normal 37-[address] [facility] Comment on above: Order Comment: Order Date: 03/15/25Order Info: 01808-10 - CBCDOrder Info: [id number] - SED Performed By: #### L 101.9900, L100.0100, L500.4050, L501.5200, L509.1000, M100.2200, L501.9520, L400.0001 ####[facility] [address] [place], [address] Hemoglobin (Bld) [Mass/Vol] 11.8 g/dL Low 12.0-15.[address] [facility] Comment on above: Order Comment: Order Date: 03/15/25Order Info: 0184 - CBCDOrder Info: 82033-0 - SED Performed By: #### L 101.9900, L100.0100, L500.4050, L501.5200, L509.1000, M100.2200, L501.9520, L400.0001 ####[facility] [address], [address] IG% 0.300 Normal 0.0-0.[address] [facility] Comment on above: Order Comment: Order Date: 03/15/25Order Info: 0184-1 - CBCDOrder Info: 79416-7 - SED Result Comment: IG% - Immature Granulocytes (promyelocytes, myelocytes andmetamyelocytes) > 1% indicates that a LEFT SHIFT is Present. Performed By: #### L 101.9900, L100.0100, L500.4050, L501.5200, L509.1000, M100.2200, L501.9520, L400.0001 ####[facility] [address] [place], [address] Lymphocytes/100 WBC (Bld) 20.1 % Normal 19-[address] [facility] Comment on above: Order Comment: Order Date: 03/15/25Order Info: 018- - CBCDOrder Info: [id number] - SED Performed By: #### L 101.9900, L100.0100, L500.4050, L501.5200, L509.1000, M100.2200, L501.9520, L400.0001 ####[facility] [address] [place], [address] MCH (RBC) [Entitic mass] 27.6 pg Normal 27.0-32.[address] [facility] Comment on above: Order Comment: Order Date: 03/15/25Order Info: 0184-1 - CBCDOrder Info: 59927-9 - SED Performed By: #### L 101.9900, L100.0100, L500.4050, L501.5200, L509.1000, M100.2200, L501.9520, L400.0001 ####[facility] [address], [address] MCHC (RBC) [Mass/Vol] 31.4 g/dL Low 32-36 [facility] Comment on above: Order Comment: Order Date: 03/15/25Order Info: 018- - CBCDOrder Info: [id number] - SED Performed By: #### L 101.9900, L100.0100, L500.4050, L501.5200, L509.1000, M100.2200, L501.9520, L400.0001 ####[facility] [address], [address] MCV (RBC) [Entitic vol] 87.9 fL Normal 81-99 [facility] Comment on above: Order Comment: Order Date: 03/15/25Order Info: 183- - CBCDOrder Info: [id number] - SED Performed By: #### L 101.9900, L100.0100, L500.4050, L501.5200, L509.1000, M100.2200, L501.9520, L400.0001 ####[facility] [address] [place], [address] Monocytes/100 WBC (Bld) 11.6 % High 0-10 [facility] Comment on above: Order Comment: Order Date: 03/15/25Order Info: 01808-10 - CBCDOrder Info: [id number] - SED Performed By: #### L 101.9900, L100.0100, L500.4050, L501.5200, L509.1000, M100.2200, L501.9520, L400.0001 ####[facility] [address], [address] Neutrophils/100 WBC (Bld) 64.4 % Normal 47-[address] [facility] Comment on above: Order Comment: Order Date: 03/15/25Order Info: 018- - CBCDOrder Info: 99579-2 - SED Performed By: #### L 101.9900, L100.0100, L500.4050, L501.5200, L509.1000, M100.2200, L501.9520, L400.0001 ####[facility] [address], [address] Nucleated RBC (Bld) [#/Vol] 0 10*3/uL Normal 0-[address] [facility] Comment on above: Order Comment: Order Date: 03/15/25Order Info: 0184-1 - CBCDOrder Info: 11045-6 - SED Performed By: #### L 101.9900, L100.0100, L500.4050, L501.5200, L509.1000, M100.2200, L501.9520, L400.0001 ####[facility] [address] [place], [address] Platelet mean volume (Bld) [Entitic vol] 10.1 fL Normal 6.2-12.[address] [facility] Comment on above: Order Comment: Order Date: 03/15/25Order Info: 0184-1 - CBCDOrder Info: [id number] - SED Performed By: #### L 101.9900, L100.0100, L500.4050, L501.5200, L509.1000, M100.2200, L501.9520, L400.0001 ####[facility] [address] [place], [address] Platelets (Bld) [#/Vol] 331 10*3/uL Normal 150-[address] [facility] Comment on above: Order Comment: Order Date: 03/15/25Order Info: 0184-1 - CBCDOrder Info: [id number] - SED Performed By: #### L 101.9900, L100.0100, L500.4050, L501.5200, L509.1000, M100.2200, L501.9520, L400.0001 ####[facility] [address], [address] RBC (Bld) [#/Vol] 4.28 10*6/uL Normal 4.2-5.4 [facility] Comment on above: Order Comment: Order Date: 03/15/25Order Info: 0184-1 - CBCDOrder Info: 61354-7 - SED Performed By: #### L 101.9900, L100.0100, L500.4050, L501.5200, L509.1000, M100.2200, L501.9520, L400.0001 ####[facility] [address] [place], [address] RDW SD 44.4 fl High 35.1-43.[address] [facility] Comment on above: Order Comment: Order Date: 03/15/25Order Info: 0184- - CBCDOrder Info: [id number] - SED Performed By: #### L 101.9900, L100.0100, L500.4050, L501.5200, L509.1000, M100.2200, L501.9520, L400.0001 ####[facility] [address] [place], [place], [id number] WBC (Bld) [#/Vol] 7.6 10*3/uL Normal 4.4-11.0 [facility] Comment on above: Order Comment: Order Date: 03/15/25Order Info: 0184-1 - CBCDOrder Info: [id number] - SED Performed By: #### L 101.9900, L100.0100, L500.4050, L501.5200, L509.1000, M100.2200, L501.9520, L400.0001 ####[facility] [address] [place], [place], [id number] Chest PA and Lateralon 03-15 Chest PA and Lateral Normal [facility] Comprehensive Metabolic Prof ilon 03-15-2025 Albumin [Mass/Vol] 4.0 g/dL Normal 3.4-4.8 [facility] Comment on above: Order Comment: Order Date: 02/25/25Order Info: 666-05 - BMPOrder Date: 03/15/25Order Info: 785-05 - CMPOrder Info: - MGOrder Info: 6-3 - TSH Performed By: #### L 101.9900, L100.0100, L500.4050, L501.5200, L509.1000, M100.2200, L501.9520, L400.0001 ####[facility] [address], [address] Albumin/Globulin [Mass ratio] 1.4 {ratio} Normal 0.9-2.[address] [facility] Comment on above: Order Comment: Order Date: 02/25/25Order Info: 666-05 - BMPOrder Date: 03/15/25Order Info: 785-05 - CMPOrder Info: - MGOrder Info: 6-3 - TSH Performed By: #### L 101.9900, L100.0100, L500.4050, L501.5200, L509.1000, M100.2200, L501.9520, L400.0001 ####[facility] [address] [place], [place], [address] ALK PHOS 69 U/L Normal 35-[address] [facility] Comment on above: Order Comment: Order Date: 02/25/25Order Info: 666-05 - BMPOrder Date: 03/15/25Order Info: 785-05 - CMPOrder Info: - MGOrder Info: 3015-3 - TSH Performed By: #### L 101.9900, L100.0100, L500.4050, L501.5200, L509.1000, M100.2200, L501.9520, L400.0001 ####[facility] [address] [place], [address] ALT [Catalytic activity/Vol] 8 U/L Normal <=[address] [facility] Comment on above: Order Comment: Order Date: 02/25/25Order Info: 666-05 - BMPOrder Date: 03/15/25Order Info: 785-05 - CMPOrder Info: 51670-0 - MGOrder Info: 3015-3 - TSH Performed By: #### L 101.9900, L100.0100, L500.4050, L501.5200, L509.1000, M100.2200, L501.9520, L400.0001 ####[facility] [address] [place], [place], [address] AST [Catalytic activity/Vol] 26 U/L Normal <=[address] [facility] Comment on above: Order Comment: Order Date: 02/25/25Order Info: 666- - BMPOrder Date: 03/15/25Order Info: 785-1 - CMPOrder Info: [id number] - MGOrder Info: 3015-3 - TSH Performed By: #### L 101.9900, L100.0100, L500.4050, L501.5200, L509.1000, M100.2200, L501.9520, L400.0001 ####[facility] [address] [place], [place], [id number] Bilirubin [Mass/Vol] 0.30 mg/dL Normal 0.00-1.30 [facility] Comment on above: Order Comment: Order Date: 02/25/25Order Info: 666-05 - BMPOrder Date: 03/15/25Order Info: 785-1 - CMPOrder Info: [id number] - MGOrder Info: 3015-3 - TSH Performed By: #### L 101.9900, L100.0100, L500.4050, L501.5200, L509.1000, M100.2200, L501.9520, L400.0001 ####[facility] [address] [place], [place], [address] BUN/CRE 26.2 RATIO High 10-[address] [facility] Comment on above: Order Comment: Order Date: 02/25/25Order Info: 666- - BMPOrder Date: 03/15/25Order Info: 785-1 - CMPOrder Info: [id number] - MGOrder Info: 3016-3 - TSH Performed By: #### L 101.9900, L100.0100, L500.4050, L501.5200, L509.1000, M100.2200, L501.9520, L400.0001 ####[facility] [address] [place], [address] Calcium [Mass/Vol] 10.3 mg/dL Normal 7.6-11.0 [facility] Comment on above: Order Comment: Order Date: 02/25/25Order Info: 666- - BMPOrder Date: 03/15/25Order Info: 07-1 - CMPOrder Info: [id number] - MGOrder Info: 3015-3 - TSH Performed By: #### L 101.9900, L100.0100, L500.4050, L501.5200, L509.1000, M100.2200, L501.9520, L400.0001 ####[facility] [address] [place], [address] Chloride [Moles/Vol] 97 mmol/L Low 98-108 [facility] Comment on above: Order Comment: Order Date: 02/25/25Order Info: 666-05 - BMPOrder Date: 03/15/25Order Info: 07-1 - CMPOrder Info: [id number] - MGOrder Info: 6-3 - TSH Performed By: #### L 101.9900, L100.0100, L500.4050, L501.5200, L509.1000, M100.2200, L501.9520, L400.0001 ####[facility] [address] [place], [address] CO2 [Moles/Vol] 31.7 mmol/L Normal 21.0-32.[address] [facility] Comment on above: Order Comment: Order Date: 02/25/25Order Info: 666- - BMPOrder Date: 03/15/25Order Info: 07-1 - CMPOrder Info: [id number] - MGOrder Info: 3015-3 - TSH Performed By: #### L 101.9900, L100.0100, L500.4050, L501.5200, L509.1000, M100.2200, L501.9520, L400.0001 ####[facility] [address] [place], [place], [address] Creatinine [Mass/Vol] 0.94 mg/dL Normal 0.70-1.20 [facility] Comment on above: Order Comment: Order Date: 02/25/25Order Info: 666- - BMPOrder Date: 03/15/25Order Info: 07-1 - CMPOrder Info: [id number] - MGOrder Info: 3016-3 - TSH Performed By: #### L 101.9900, L100.0100, L500.4050, L501.5200, L509.1000, M100.2200, L501.9520, L400.0001 ####[facility] [address] [place], [address] GAP 12 Normal 5-[address] [facility] Comment on above: Order Comment: Order Date: 02/25/25Order Info: 666- - BMPOrder Date: 03/15/25Order Info: 07-1 - CMPOrder Info: [id number] - MGOrder Info: 3016-3 - TSH Performed By: #### L 101.9900, L100.0100, L500.4050, L501.5200, L509.1000, M100.2200, L501.9520, L400.0001 ####[facility] [address] [place], [place], [address] GFR/1.73 sq M.predicted among non-blacks MDRD (S/P/Bld) [Vol rate/Area] 58 mL/min/{1.73_m2} Low >[address] [facility] Comment on above: Order Comment: Order Date: 02/25/25Order Info: 06- - BMPOrder Date: 03/15/25Order Info: 0786-1 - CMPOrder Info: [id number] - MGOrder Info: 3015-3 - TSH Result Comment: mL/m in/1.73m2 CKD-EPI Creatinine Equation (2020) Performed By: #### L 101.9900, L100.0100, L500.4050, L501.5200, L509.1000, M100.2200, L501.9520, L400.0001 ####[facility] [address] [place], [place], [address] Globulin (S) [Mass/Vol] 2.8 g/dL Normal 2.2-4.2 [facility] Comment on above: Order Comment: Order Date: 02/25/25Order Info: 0667-1 - BMPOrder Date: 03/15/25Order Info: 0786-1 - CMPOrder Info: - MGOrder Info: 3 - TSH Performed By: #### L 101.9900, L100.0100, L500.4050, L501.5200, L509.1000, M100.2200, L501.9520, L400.0001 ####[facility] [address] [place], [place], [address] Glucose [Mass/Vol] 102 mg/dL High 70-99 [facility] Comment on above: Order Comment: Order Date: 02/25/25Order Info: 0667-1 - BMPOrder Date: 03/15/25Order Info: 0786-1 - CMPOrder Info: - MGOrder Info: 3013 - TSH Performed By: #### L 101.9900, L100.0100, L500.4050, L501.5200, L509.1000, M100.2200, L501.9520, L400.0001 ####[facility] [address] [place], [place], [address] Potassium [Moles/Vol] 3.5 mmol/L Normal 3.3-5.1 [facility] Comment on above: Order Comment: Order Date: 02/25/25Order Info: 0667-1 - BMPOrder Date: 03/15/25Order Info: 785-05 - CMPOrder Info: - MGOrder Info: 3 - TSH Performed By: #### L 101.9900, L100.0100, L500.4050, L501.5200, L509.1000, M100.2200, L501.9520, L400.0001 ####[facility] [address] [place], [address] Sodium [Moles/Vol] 140 mmol/L Normal 133-145 [facility] Comment on above: Order Comment: Order Date: 02/25/25Order Info: 666-05 - BMPOrder Date: 03/15/25Order Info: 785-05 - CMPOrder Info: - MGOrder Info: 3015-07 - TSH Performed By: #### L 101.9900, L100.0100, L500.4050, L501.5200, L509.1000, M100.2200, L501.9520, L400.0001 ####[facility] [address] [place], [address] T PROT 6.7 g/dL Normal 5.9-8.[address] [facility] Comment on above: Order Comment: Order Date: 02/25/25Order Info: 666-05 - BMPOrder Date: 03/15/25Order Info: 785-05 - CMPOrder Info: - MGOrder Info: 3015-07 - TSH Performed By: #### L 101.9900, L100.0100, L500.4050, L501.5200, L509.1000, M100.2200, L501.9520, L400.0001 ####[facility] [address] [place], [address] Urea nitrogen [Mass/Vol] 25 mg/dL High 4-[address] [facility] Comment on above: Order Comment: Order Date: 02/25/25Order Info: 666-05 - BMPOrder Date: 03/15/25Order Info: 785-05 - CMPOrder Info: [id number] - MGOrder Info: 3016-3 - TSH Performed By: #### L 101.9900, L100.0100, L500.4050, L501.5200, L509.1000, M100.2200, L501.9520, L400.0001 ####[facility] [address] [place], [address] Erythrocyte Sed Rateon 03-15 SED RATE 18 mm/hr Normal 0-[address] [facility] Comment on above: Order Comment: Order Date: 03/15/25Order Info: 0184-1 - CBCDOrder Info: [id number] - SED Performed By: #### L 101.9900, L100.0100, L500.4050, L501.5200, L509.1000, M100.2200, L501.9520, L400.0001 ####[facility] [address] [place], [address] Magnesiumon 03-15-2025 Magnesium [Mass/Vol] 2.2 mg/dL Normal 1.5-2.2 [facility] Comment on above: Order Comment: Order Date: 02/25/25Order Info: 0667-1 - BMPOrder Date: 03/15/25Order Info: 0786-1 - CMPOrder Info: [id number] - MGOrder Info: 3016-3 - TSH Performed By: #### L 101.9900, L100.0100, L500.4050, L501.5200, L509.1000, M100.2200, L501.9520, L400.0001 ####[facility] [address] [place], [address] PTHINon 03-15-2025 PTH 28 pg/mL Normal 11-[address] [facility] Comment on above: Order Comment: Order Date: 03/15/25Order Info: 0565-1 - PTHIN Performed By: #### L 101.9900, L100.0100, L500.4050, L501.5200, L509.1000, M100.2200, L501.9520, L400.0001 ####[facility] [address] [place], [place], [address] Pro- Brain NATRIURETIC PEPTI Arlen 03-15-2025 Natriuretic peptide B (Bld) [Mass/Vol] 2527 pg/mL High <=[address] [facility] Comment on above: Order Comment: Order Date: 02/25/25Order Info: 0667-1 - BMPOrder Date: 03/15/25Order Info: 0786-1 - CMPOrder Info: [id number] - MGOrder Info: 3016-3 - TSH Result Comment: Hear t Failure Unlikely: < 300 pg/mLHeart Failure Likely< 50 Years: > 450 pg/mL50-75 Years: > 900 pg/mL>75 Years: > 1800 pg/mL Performed By: #### L 506.1001, L503.7505 ####[facility] [address] [place], [address] Ribs Unil 2V No CXRon 2024 Ribs Unil 2V No CXR Normal [facility] Thyroid Stim Hormone (TSH)on 03-15-2025 TSH 2.490 uIU/mL Normal 0.300-4.[address] [facility] Comment on above: Order Comment: Order Date: 02/25/25Order Info: 0667-1 - BMPOrder Date: 03/15/25Order Info: 0786-1 - CMPOrder Info: - MGOrder Info: 3016-3 - TSH Performed By: #### L 101.9900, L100.0100, L500.4050, L501.5200, L509.1000, M100.2200, L501.9520, L400.0001 ####[facility] [address] [place], [address] Urinalysis, Completeon 03-15 EPI,SQUAMOUS 0-5 SEEN Normal 5-[address] [facility] Comment on above: Order Comment: Order Date: 03/15/25Order Info: [id number] - UACCOLLECTOR TO SPECIFY Performed By: #### L 101.9900, L100.0100, L500.4050, L501.5200, L509.1000, M100.2200, L501.9520, L400.0001 ####[facility] [address] [place], [address] RBC 0-5 SEEN Normal 0-[address] [facility] Comment on above: Order Comment: Order Date: 03/15/25Order Info: 98824-8 - UACCOLLECTOR TO SPECIFY Performed By: #### L 101.9900, L100.0100, L500.4050, L501.5200, L509.1000, M100.2200, L501.9520, L400.0001 ####[facility] [address] [place], [address] WBC 0-5 SEEN Normal 0-[address] [facility] Comment on above: Order Comment: Order Date: 03/15/25Order Info: [id number] - UACCOLLECTOR TO SPECIFY Performed By: #### L 101.9900, L100.0100, L500.4050, L501.5200, L509.1000, M100.2200, L501.9520, L400.0001 ####[facility] [address] [place], [address] BACTERIA 0 SEEN Normal None Seen [facility] Comment on above: Order Comment: Order Date: 03/15/25Order Info: [id number] - UACCOLLECTOR TO SPECIFY Performed By: #### L 101.9900, L100.0100, L500.4050, L501.5200, L509.1000, M100.2200, L501.9520, L400.0001 ####[facility] [address] [place], [address] Mucus Ql (Urine sed) 0 SEEN Normal [facility] Comment on above: Order Comment: Order Date: 03/15/25Order Info: [id number] - UACCOLLECTOR TO SPECIFY Performed By: #### L 101.9900, L100.0100, L500.4050, L501.5200, L509.1000, M100.2200, L501.9520, L400.0001 ####[facility] [address] [place], [address] Vitamin D,25 Hydroxyon 03-15 Vitamin D 25-OH 68.9 ng/mL Normal 30-[address] [facility] Comment on above: Order Comment: Order Date: 02/25/25Order Info: 0667-1 - BMPOrder Date: 03/15/25Order Info: 0786-1 - CMPOrder Info: [id number] - MGOrder Info: 3016-3 - TSH Result Comment: Nathalie min D StatusDeficiency: <20 ng/mL (50nmol/L)Insufficiency: 20-30 ng/mL (50-75 nmol/L)Sufficiency: 30-100 ng/mL (75-250 nmol/L)Toxicity: >100 ng/mL (>250 nmol/L) Performed By: #### L 506.1001, L503.7505 ####[facility] [address] [place], [address] CBC-Complete Blood Cnt No Di ffon 02-22-2025 Erythrocyte distribution width (RBC) [Ratio] 14.2 % Normal 11.6-14.[address] [facility] Comment on above: Order Comment: Order Date: 01/14/25Order Info: [id number] - CBC Performed By: #### L 501.5200, L503.6550, L100.0500 ####[facility] [address] [place], [address] Hematocrit (Bld) [Volume fraction] 35.5 % Low 37-[address] [facility] Comment on above: Order Comment: Order Date: 01/14/25Order Info: [id number] - CBC Performed By: #### L 501.5200, L503.6550, L100.0500 ####[facility] [address] [place], [address] Hemoglobin (Bld) [Mass/Vol] 11.1 g/dL Low 12.0-15.[address] [facility] Comment on above: Order Comment: Order Date: 01/14/25Order Info: [id number] - CBC Performed By: #### L 501.5200, [id number], L100.0500 ####[facility] [address] [place], [address] MCH (RBC) [Entitic mass] 27.8 pg Normal 27.0-32.[address] [facility] Comment on above: Order Comment: Order Date: 01/14/25Order Info: [id number] - CBC Performed By: #### L 501.5200, L503.6550, L100.0500 ####[facility] [address] [place], [address] MCHC (RBC) [Mass/Vol] 31.3 g/dL Low 32-36 [facility] Comment on above: Order Comment: Order Date: 01/14/25Order Info: [id number] - CBC Performed By: #### L 501.5200, L503.6550, L100.0500 ####[facility] [address] [place], [address] MCV (RBC) [Entitic vol] 88.8 fL Normal 81-99 [facility] Comment on above: Order Comment: Order Date: 01/14/25Order Info: [id number] - CBC Performed By: #### L 501.5200, L503.6550, L100.0500 ####[facility] [address] [place], [address] Platelet mean volume (Bld) [Entitic vol] 10.2 fL Normal 6.2-12.[address] [facility] Comment on above: Order Comment: Order Date: 01/14/25Order Info: [id number] - CBC Performed By: #### L 501.5200, L503.6550, L100.0500 ####[facility] [address] [place], [address] Platelets (Bld) [#/Vol] 349 10*3/uL Normal 150-[address] [facility] Comment on above: Order Comment: Order Date: 01/14/25Order Info: [id number] - CBC Performed By: #### L 501.5200, L503.6550, L100.0500 ####[facility] [address] [place], [address] RBC (Bld) [#/Vol] 4.00 10*6/uL Low 4.2-5.4 [facility] Comment on above: Order Comment: Order Date: 01/14/25Order Info: [id number] - CBC Performed By: #### L 501.5200, L503.6550, L100.0500 ####[facility] [address] [place], [address] RDW SD 46.0 fl High 35.1-43.[address] [facility] Comment on above: Order Comment: Order Date: 01/14/25Order Info: [id number] - CBC Performed By: #### L 501.5200, L503.6550, L100.0500 ####[facility] [address], [address] WBC (Bld) [#/Vol] 7.1 10*3/uL Normal 4.4-11.0 [facility] Comment on above: Order Comment: Order Date: 01/14/25Order Info: [id number] - CBC Performed By: #### L 501.5200, L503.6550, L100.0500 ####[facility] [address] [place], [address] Ferritinon 02-22-2025 Ferritin [Mass/Vol] 61 ng/mL Normal 22-378 [facility] Comment on above: Order Comment: PER I NTERFACE COMMENT-BTNPOrder Date: 01/14/25Order Info: - MGOrder Info: [id number] - OSCAR Performed By: #### L 501.5200, L503.6550, L100.0500 ####[facility] [address] [place], [address] Magnesiumon 02-22-2025 Magnesium [Mass/Vol] 2.3 mg/dL High 1.5-2.2 [facility] Comment on above: Order Comment: PER I NTERFACE COMMENT-BTNPOrder Date: 01/14/25Order Info: - MGOrder Info: [id number] - OSCAR Performed By: #### L 501.5200, L503.6550, L100.0500 ####[facility] [address] [place], [place], [address] Pro- Brain NATRIURETIC PEPTI Arlen 02-22-2025 Natriuretic peptide B (Bld) [Mass/Vol] 1468 pg/mL Normal <=[address] [facility] Comment on above: Order Comment: PER I NTERFACE COMMENT-BTNPOrder Date: 01/14/25Order Info: - MGOrder Info: [id number] - OSCAR Result Comment: Hear t Failure Unlikely: < 300 pg/mLHeart Failure Likely< 50 Years: > 450 pg/mL50-75 Years: > 900 pg/mL>75 Years: > 1800 pg/mL Performed By: #### L 503.7505 ####[facility] [address] [place], [address] Cardiology Visit Reporton Cardiology Visit Report Normal [facility] Anion gap in Serum or Plasma Ordered By: Sho Andino on 11-19-2024 Anion gap [Moles/Vol] 10 mmol/L - [facility] BUN/creatinine ratioOrdered By: Sho Andino on 11-19-2024 Urea nitrogen/Creatinine [Mass ratio] 18.4 mg/mg - [facility] Basic Metabolic Profile (BMP )on 11-19-2024 BUN/CRE 18.4 RATIO Normal 10-[address] [facility] Comment on above: Performed By: #### L 500.2500, L503.7505 ####[facility] [address], [address] Calcium [Mass/Vol] 8.3 mg/dL Normal 7.6-11.0 [facility] Comment on above: Performed By: #### L 500.2500, L503.7505 ####[facility] [address], [address] Chloride [Moles/Vol] 98 mmol/L Normal 98-108 [facility] Comment on above: Performed By: #### L 500.2500, L503.7505 ####[facility] [address] [place], [address] CO2 [Moles/Vol] 26.0 mmol/L Normal 21.0-32.[address] [facility] Comment on above: Performed By: #### L 500.2500, L503.7505 ####[facility] [address] [place], [address] Creatinine [Mass/Vol] 0.80 mg/dL Normal 0.70-1.20 [facility] Comment on above: Performed By: #### L 500.2500, L503.7505 ####[facility] [address], [address] GAP 10 Normal 5-[address] [facility] Comment on above: Performed By: #### L 500.2500, L503.7505 ####[facility] [address], [address] GFR/1.73 sq M.predicted among non-blacks MDRD (S/P/Bld) [Vol rate/Area] 71 mL/min/{1.73_m2} Normal >[address] [facility] Comment on above: Result Comment: mL/m in/1.73m2 CKD-EPI Creatinine Equation (2020) Performed By: #### L 500.2500, L503.7505 ####[facility] [address], [address] Glucose [Mass/Vol] 108 mg/dL High 70-99 [facility] Comment on above: Performed By: #### L 500.2500, L503.7505 ####[facility] [address], [address] Potassium [Moles/Vol] 4.5 mmol/L Normal 3.3-5.1 [facility] Comment on above: Performed By: #### L 500.2500, L503.7505 ####[facility] [address], [address] Sodium [Moles/Vol] 134 mmol/L Normal 133-145 [facility] Comment on above: Performed By: #### L 500.2500, L503.7505 ####[facility] [address], [address] Urea nitrogen [Mass/Vol] 15 mg/dL Normal 4-[address] [facility] Comment on above: Performed By: #### L 500.2500, L503.7505 ####[facility] [address], [address] Carbon dioxide, total [Moles /volume] in Central venous bloodOrdered By: Sho Andino on 11-19-2024 CO2 [Moles/Vol] 26.0 mmol/L 21.0-32.[address] [facility] Cardiology Visit Reporton Cardiology Visit Report Normal [facility] Chloride assayOrdered By: Jossue Andino on 11-19-2024 Chloride [Moles/Vol] 98 mmol/L 98-108 [facility] Glomerular filtration rate ( GFR) estimation/1.73 sq m using serum, plasma, or whole bOrdered By: Sho Andino on 11-19-2024 GFR/1.73 sq M.predicted among non-blacks MDRD (S/P/Bld) [Vol rate/Area] 71 mL/min/{1.73_m2} >[address] [facility] L503.7505on 11-19-2024 Natriuretic peptide B (Bld) [Mass/Vol] 628 pg/mL Normal <=[address] [facility] Comment on above: Result Comment: Hear t Failure Unlikely: < 300 pg/mLHeart Failure Likely< 50 Years: > 450 pg/mL50-75 Years: > 900 pg/mL>75 Years: > 1800 pg/mL Performed By: #### L 500.2500, L503.7505 ####[facility] [address] [place], [address] Natriuretic peptide.B prohor elier N-Terminal [Mass/volume] in Serum or PlasmaOrdered By: Sho Andino on 11-19-2024 Natriuretic peptide.B prohormone N-Terminal [Mass/Vol] 628 pg/mL <[address] [facility] Potassium measurement (mass/ volume)Ordered By: Sho Andino on 11-19-2024 Potassium (Unsp spec) [Mass/Vol] 4.5 mmol/L 3.3-5.[address] [facility] Serum creatinine measurement (mass/volume)Ordered By: Sho Andino on 11-19-2024 Creatinine [Mass/Vol] 0.80 mg/dL 0.70-1.20 [facility] Serum glucose measurement (m ass/volume)Ordered By: Sho Andino on 11-19-2024 Glucose [Mass/Vol] 108 mg/dL High 70-99 [facility] Serum or plasma calcium manuel urement (mass/volume)Ordered By: Sho Andino on 11-19-2024 Calcium [Mass/Vol] 8.3 mg/dL 7.6-11.0 [facility] Serum or plasma urea nitroge n measurement (mass/volume)Ordered By: Sho Andino on 11-19-2024 Urea nitrogen [Mass/Vol] 15 mg/dL 4-[address] [facility] Sodium levelOrdered By: Elsie Andino on 11-19-2024 Sodium [Moles/Vol] 134 mmol/L 133-145 [facility] 12 Lead EKGon 11-17-2024 12 Lead EKG Normal [facility] Absolute lymphocyte countOrd ered By: Tylor Hendrickson on 11-17-2024 Lymphocytes Auto (Unsp spec) [#/Vol] 1.78 10*3/uL 0.83-4.[address] [facility] Anion gap in Serum or Plasma Ordered By: Tylor Hendrickson on 11-17-2024 Anion gap [Moles/Vol] 14 mmol/L - [facility] Automated lymphocyte count a s percentage of total leukocytesOrdered By: Tylor Hendrickson on 11-17-2024 Lymphocytes/100 WBC Auto (Unsp spec) 21.5 % -[address] [facility] BUN/creatinine ratioOrdered By: Tylor Hendrickson on 11-17-2024 Urea nitrogen/Creatinine [Mass ratio] 20.6 mg/mg High - [facility] Basic Metabolic Profile (BMP )on 11-17-2024 BUN/CRE 20.6 RATIO High - [facility] Comment on above: Performed By: #### L 503.7505, L100.0100, L500.2500, L501.4021 ####[facility] [address] [place], [address] ECRCL 37.43 ml/min Low 50-[address] [facility] Comment on above: Performed By: #### L 503.7505, L100.0100, L500.2500, L501.4021 ####[facility] [address] [place], [address] GAP 14 Normal - [facility] Comment on above: Performed By: #### L 503.7505, L100.0100, L500.2500, L501.4021 ####[facility] [address] [place], [address] Potassium [Moles/Vol] 4.7 mmol/L Normal 3.3-5.1 [facility] Comment on above: Performed By: #### L 503.7505, L100.0100, L500.2500, L501.4021 ####[facility] [address] [place], [address] Basophil percentageOrdered B y: Tylor Hendrickson on 11-17-2024 Basophils/100 WBC (Bld) 0.8 % 0-1 [facility] CBC W/Diff, Automatedon Absolute Lymph 1.78 X10 3/uL Normal 0.83-4.[address] [facility] Comment on above: Performed By: #### L 503.7505, L100.0100, L500.2500, L501.4021 ####[facility] [address], [address] Absolute Neut 5.4 X10 3/uL Normal 2.0-7.[address] [facility] Comment on above: Performed By: #### L 503.7505, L100.0100, L500.2500, L501.4021 ####[facility] [address], [address] Basophils/100 WBC (Bld) 0.8 % Normal 0-1 [facility] Comment on above: Performed By: #### L 503.7505, L100.0100, L500.2500, L501.4021 ####[facility] [address], [address] Eosinophils/100 WBC (Bld) 1.7 % Normal 0-[address] [facility] Comment on above: Performed By: #### L 503.7505, L100.0100, L500.2500, L501.4021 ####[facility] [address], [address] Erythrocyte distribution width (RBC) [Ratio] 15.7 % High 11.6-14.[address] [facility] Comment on above: Performed By: #### L 503.7505, L100.0100, L500.2500, L501.4021 ####[facility] [address], [address] Hematocrit (Bld) [Volume fraction] 31.2 % Low 37-[address] [facility] Comment on above: Performed By: #### L 503.7505, L100.0100, L500.2500, L501.4021 ####[facility] [address], [address] Hemoglobin (Bld) [Mass/Vol] 9.6 g/dL Low 12.0-15.[address] [facility] Comment on above: Performed By: #### L 503.7505, L100.0100, L500.2500, L501.4021 ####[facility] [address], [address] IG% 0.700 Normal 0.0-0.[address] [facility] Comment on above: Result Comment: IG% - Immature Granulocytes (promyelocytes, myelocytes andmetamyelocytes) > 1% indicates that a LEFT SHIFT is Present. Performed By: #### L 503.7505, L100.0100, L500.2500, L501.4021 ####[facility] [address], [address] Lymphocytes/100 WBC (Bld) 21.5 % Normal 19-[address] [facility] Comment on above: Performed By: #### L 503.7505, L100.0100, L500.2500, L501.4021 ####[facility] [address] [place], [address] MCH (RBC) [Entitic mass] 28.4 pg Normal 27.0-32.[address] [facility] Comment on above: Performed By: #### L 503.7505, L100.0100, L500.2500, L501.4021 ####[facility] [address], [address] MCHC (RBC) [Mass/Vol] 30.8 g/dL Low 32-36 [facility] Comment on above: Performed By: #### L 503.7505, L100.0100, L500.2500, L501.4021 ####[facility] [address], [address] MCV (RBC) [Entitic vol] 92.3 fL Normal 81-99 [facility] Comment on above: Performed By: #### L 503.7505, L100.0100, L500.2500, L501.4021 ####[facility] [address], [address] Monocytes/100 WBC (Bld) 9.6 % Normal 0-10 [facility] Comment on above: Performed By: #### L 503.7505, L100.0100, L500.2500, L501.4021 ####[facility] [address], [address] Neutrophils/100 WBC (Bld) 65.7 % Normal 47-[address] [facility] Comment on above: Performed By: #### L 503.7505, L100.0100, L500.2500, L501.4021 ####[facility] [address] [place], [address] Nucleated RBC (Bld) [#/Vol] 0 10*3/uL Normal 0-[address] [facility] Comment on above: Performed By: #### L 503.7505, L100.0100, L500.2500, L501.4021 ####[facility] [address], [address] Platelet mean volume (Bld) [Entitic vol] 9.2 fL Normal 6.2-12.[address] [facility] Comment on above: Performed By: #### L 503.7505, L100.0100, L500.2500, L501.4021 ####[facility] [address], [address] Platelets (Bld) [#/Vol] 401 10*3/uL Normal 150-[address] [facility] Comment on above: Performed By: #### L 503.7505, L100.0100, L500.2500, L501.4021 ####[facility] [address], [address] RBC (Bld) [#/Vol] 3.38 10*6/uL Low 4.2-5.4 [facility] Comment on above: Performed By: #### L 503.7505, L100.0100, L500.2500, L501.4021 ####[facility] [address] [place], [address] RDW SD 53.4 fl High 35.1-43.[address] [facility] Comment on above: Performed By: #### L 503.7505, L100.0100, L500.2500, L501.4021 ####[facility] [address], [address] WBC (Bld) [#/Vol] 8.3 10*3/uL Normal 4.4-11.0 [facility] Comment on above: Performed By: #### L 503.7505, L100.0100, L500.2500, L501.4021 ####[facility] [address], [address] Carbon dioxide, total [Moles /volume] in Central venous bloodOrdered By: Tylor Hendrickson on 11-17-2024 CO2 [Moles/Vol] 22.4 mmol/L Normal 21.0-32.[address] [facility] Comment on above: Performed By: #### L 503.7505, L100.0100, L500.2500, L501.4021 ####[facility] [address], [address] Chest 1 View (Portable)on Chest 1 View (Portable) Normal [facility] Chloride assayOrdered By: Cari Hendrickson on 11-17-2024 Chloride [Moles/Vol] 99 mmol/L Normal 98-108 [facility] Comment on above: Performed By: #### L 503.7505, L100.0100, L500.2500, L501.4021 ####[facility] [address] [place], [place], [id number] Emergency Department Summary on 11-17-2024 Emergency Department Summary Normal [facility] Eosinophil percentageOrdered By: Tylor Hendrickson on 11-17-2024 Eosinophils/100 WBC (Bld) 1.7 % 0-[address] [facility] Erythrocyte distribution wid th ratioOrdered By: Tylor Hendrickson on 11-17-2024 Erythrocyte distribution width (RBC) [Ratio] 15.7 % High 11.6-14.[address] [facility] Erythrocyte distribution wid th standard deviationOrdered By: Tylor Hendrickson on 11-17-2024 Erythrocyte distribution width (RBC) [Ratio] 53.4 fl High 35.1-43.[address] [facility] Glomerular filtration rate ( GFR) estimation/1.73 sq m using serum, plasma, or whole bOrdered By: Tylor Hendrickson on 11-17-2024 GFR/1.73 sq M.predicted among non-blacks MDRD (S/P/Bld) [Vol rate/Area] 60 mL/min/{1.73_m2} Normal >[address] [facility] Comment on above: Result Comment: mL/m in/1.73m2 CKD-EPI Creatinine Equation (2020) Performed By: #### L 503.7505, L100.0100, L500.2500, L501.4021 ####[facility] [address] [place], [place], [address] Hematocrit Auto (Bld) [Volum e fraction]Ordered By: Tylor Hendrickson on 11-17-2024 Hematocrit (Bld) [Volume fraction] 31.2 % Low 37-[address] [facility] Hemoglobin measurementOrdere d By: Tylor Hendrickson on 11-17-2024 Hemoglobin (Bld) [Mass/Vol] 9.6 g/dL Low 12.0-15.[address] [facility] Immature granulocytes/100 WB C Auto (Bld)Ordered By: Tylor Hendrickson on 11-17-2024 Immature granulocytes/100 WBC (Bld) 0.700 % 0.0-0.[address] [facility] L499.0042on 11-17-2024 Trop T High Sen 34 ng/L High <=[address] [facility] Comment on above: Performed By: #### L 499.0042 ####[facility] [address] [place], [address] L499.0043on 11-17-2024 Trop T High Sen 34 ng/L High <=[address] [facility] Comment on above: Performed By: #### L 499.0043 ####[facility] [address], [address] L501.4021on 11-17-2024 Trop T High Sen 35 ng/L High <=[address] [facility] Comment on above: Performed By: #### L 503.7505, L100.0100, L500.2500, L501.4021 ####[facility] [address], [address] L503.7505on 11-17-2024 Natriuretic peptide B (Bld) [Mass/Vol] 666 pg/mL Normal <=[address] [facility] Comment on above: Result Comment: Hear t Failure Unlikely: < 300 pg/mLHeart Failure Likely< 50 Years: > 450 pg/mL50-75 Years: > 900 pg/mL>75 Years: > 1800 pg/mL Performed By: #### L 503.7505, L100.0100, L500.2500, L501.4021 ####[facility] [address] [place], [address] MCV (mean corpuscular volume ) determinationOrdered By: Tylor Hendrickson on 11-17-2024 MCV (RBC) [Entitic vol] 92.3 fL 81-99 [facility] Mean corpuscular hemoglobin (MCH) determinationOrdered By: Tylor Hendrickson on 11-17-2024 MCH (RBC) [Entitic mass] 28.4 pg 27.0-32.[address] [facility] Monocyte percentageOrdered B y: Tylor Burdickpete on 11-17-2024 Monocytes/100 WBC (Bld) 9.6 % 0-10 [facility] Natriuretic peptide.B prohor elier N-Terminal [Mass/volume] in Serum or PlasmaOrdered By: Tylor Hendrickson on 11-17-2024 Natriuretic peptide.B prohormone N-Terminal [Mass/Vol] 666 pg/mL <[address] [facility] Neutrophil percentageOrdered By: Tylorjoseph Hendrickson on 11-17-2024 Neutrophils/100 WBC (Bld) 65.7 % 47-[address] [facility] Platelet countOrdered By: Cari Hendrickson on 11-17-2024 Platelets (Bld) [#/Vol] 401 10*3/uL 150-[address] [facility] Potassium measurement (mass/ volume)Ordered By: Tylor Hendrickson on 11-17-2024 Potassium (Unsp spec) [Mass/Vol] 4.7 mmol/L 3.3-5.[address] [facility] RBC Auto (Bld) [#/Vol]Ordere d By: Tylorjoseph Hendrickson on 11-17-2024 RBC (Bld) [#/Vol] 3.38 10*6/uL Low 4.2-5.4 [facility] Serum creatinine measurement (mass/volume)Ordered By: Tylor Hendrickson on 11-17-2024 Creatinine [Mass/Vol] 0.92 mg/dL Normal 0.70-1.20 [facility] Comment on above: Performed By: #### L 503.7505, L100.0100, L500.2500, L501.4021 ####[facility] [address] [place], [place], [id number] Serum glucose measurement (m ass/volume)Ordered By: Tylor Hendrickson on 11-17-2024 Glucose [Mass/Vol] 106 mg/dL High 70-99 [facility] Comment on above: Performed By: #### L 503.7505, L100.0100, L500.2500, L501.4021 ####[facility] [address] [place], [address] Serum or plasma calcium manuel urement (mass/volume)Ordered By: Tylor Hendrickson on 11-17-2024 Calcium [Mass/Vol] 8.1 mg/dL Normal 7.6-11.0 [facility] Comment on above: Performed By: #### L 503.7505, L100.0100, L500.2500, L501.4021 ####[facility] [address] [place], [address] Serum or plasma urea nitroge n measurement (mass/volume)Ordered By: Tylor Hendrickson on 11-17-2024 Urea nitrogen [Mass/Vol] 19 mg/dL Normal 4-[address] [facility] Comment on above: Performed By: #### L 503.7505, L100.0100, L500.2500, L501.4021 ####[facility] [address], [address] Sodium levelOrdered By: Tylor Hendrickson on 11-17-2024 Sodium [Moles/Vol] 136 mmol/L Normal 133-145 [facility] Comment on above: Performed By: #### L 503.7505, L100.0100, L500.2500, L501.4021 ####[facility] [address] [place], [address] Troponin T.cardiac [Mass/vol ume] in Serum or Plasma by High sensitivity methodOrdered By: Tylor Hendrickson on 11-17-2024 Troponin T.cardiac High sensitivity method [Mass/Vol] 34 ng/L High <[address] [facility] Troponin T.cardiac High sensitivity method [Mass/Vol] 34 ng/L High <[address] [facility] Troponin T.cardiac High sensitivity method [Mass/Vol] 35 ng/L High <[address] [facility] White blood cell (WBC) count Ordered By: Tylor Hendrickson on 11-17-2024 WBC (Bld) [#/Vol] 8.3 10*3/uL 4.4-11.0 [facility] Basic metabolic 2000 panelon 11-05-2024 Anion gap [Moles/Vol] 10 mmol/L Normal 10-[address] [facility] Comment on above: Performed By: #### 3 0934-4 #### CURTIS SCHREIBER ([id number]) [facility] ([facility]) [address] [place] [address] Calcium [Mass/Vol] 7.8 mg/dL Low 8.6-10.3 [facility] Comment on above: Performed By: #### 3 0934-4 #### CURTIS SCHREIBER ([id number]) [facility] ([facility]) [address] [place] [address] Chloride [Moles/Vol] 101 mmol/L Normal 98-107 [facility] Comment on above: Performed By: #### 3 0934-4 #### CURTIS SCHREIBER ([id number]) [facility] ([facility]) [facility] [place] [address] CO2 [Moles/Vol] 28 mmol/L Normal 21-32 [facility] Comment on above: Performed By: #### 3 0934-4 #### CURTIS SCHREIBER ([id number]) [facility] ([facility]) [facility] [place] [address] Creatinine [Mass/Vol] 0.81 mg/dL Normal 0.50-1.[address] [facility] Comment on above: Performed By: #### 3 0934-4 #### CURTIS SCHREIBER ([id number]) [facility] ([facility]) [address] [place] [address] Glomerular filtration rate/1.73 sq M.predicted 70 mL/min/1.73m*2 Normal >60 [facility] Comment on above: Result Comment: Calc ulations of estimated GFR are performed using the 2020 CKD-EPI Study Refit equation without the race variable for the IDMS-Traceable creatinine methods. https://jasn.asnjournals.org/content//ASN.2020 031518 Performed By: #### 3 0934-4 #### CURTIS SCHREIBER ([id number]) [facility] ([facility]) [address] [place] [address] Glucose [Mass/Vol] 95 mg/dL Normal 74-99 [facility] Comment on above: Performed By: #### 3 34-4 #### CURTIS SCHREIBER ([id number]) [facility] ([facility]) [address] [place] [address] Potassium [Moles/Vol] 5.0 mmol/L Normal 3.5-5.[address] [facility] Comment on above: Performed By: #### 3 34-4 #### CURTIS SCHREIBER ([id number]) [facility] ([facility]) [address] [place] [address] Sodium [Moles/Vol] 134 mmol/L Low 136-145 [facility] Comment on above: Performed By: #### 3 34-4 #### CURTIS SCHREIBER ([id number]) [facility] ([facility]) [address] [place] [address] Urea nitrogen [Mass/Vol] 27 mg/dL High 6-23 [facility] Comment on above: Performed By: #### 3 34-4 #### CURTIS SCHREIBER ([id number]) [facility] ([facility]) [address] [place] [address] Comprehensive metabolic 2000 panelon 10-29-2024 Albumin BCP dye [Mass/Vol] 3.2 g/dL Low 3.4-5.0 [facility] Comment on above: Performed By: #### 3 34-4 #### CURTIS SCHREIBER ([id number]) [facility] ([facility]) [address] [place] [address] ALP [Catalytic activity/Vol] 110 U/L Normal 33-136 [facility] Comment on above: Performed By: #### 3 34-4 #### CURTIS SCHREIBER ([id number]) [facility] ([facility]) [facility] [place] [address] ALT With P-5'-P [Catalytic activity/Vol] 12 U/L Normal 7-45 [facility] Comment on above: Result Comment: Bobbi ents treated with Sulfasalazine may generate falsely decreased results for ALT. Performed By: #### 3 0934-4 #### CURTIS SCHREIBER ([id number]) [facility] ([facility]) [address] [place] [address] Anion gap [Moles/Vol] 12 mmol/L Normal 10-[address] [facility] Comment on above: Performed By: #### 3 34-4 #### CURTIS SCHREIBER ([id number]) [facility] ([facility]) [address] [place] [address] AST With P-5'-P [Catalytic activity/Vol] 14 U/L Normal 9-39 [facility] Comment on above: Performed By: #### 3 34-4 #### CURTIS SCHREIBER ([id number]) [facility] ([facility]) [address] [place] [address] Bilirubin [Mass/Vol] 0.4 mg/dL Normal 0.0-1.2 [facility] Comment on above: Performed By: #### 3 34-4 #### CURTIS SCHREIBER ([id number]) [facility] ([facility]) [facility] [place] [address] Calcium [Mass/Vol] 7.9 mg/dL Low 8.6-10.3 [facility] Comment on above: Performed By: #### 3 0934-4 #### CURTIS SCHREIBER ([id number]) [facility] ([facility]) [facility] [place] [address] Chloride [Moles/Vol] 100 mmol/L Normal 98-107 [facility] Comment on above: Performed By: #### 3 0934-4 #### CURTIS SCHREIBER ([id number]) [facility] ([facility]) [facility] [place] [address] CO2 [Moles/Vol] 26 mmol/L Normal 21-32 [facility] Comment on above: Performed By: #### 3 0934-4 #### CURTIS SCHREIBER ([id number]) [facility] ([facility]) [address] [place] [address] Creatinine [Mass/Vol] 1.08 mg/dL High 0.50-1.[address] [facility] Comment on above: Performed By: #### 3 0934-4 #### CURTIS SCHREIBER ([id number]) [facility] ([facility]) [facility] [place] [address] Glomerular filtration rate/1.73 sq M.predicted 50 mL/min/1.73m*2 Low >60 [facility] Comment on above: Result Comment: Calc ulations of estimated GFR are performed using the 2020 CKD-EPI Study Refit equation without the race variable for the IDMS-Traceable creatinine methods. https://jasn.asnjournals.org/content/early//ASN.2020 753891 Performed By: #### 3 0934-4 #### CURTIS SCHREIBER ([id number]) [facility] ([facility]) [address] [place] [address] Glucose [Mass/Vol] 91 mg/dL Normal 74-99 [facility] Comment on above: Performed By: #### 3 0934-4 #### CURTIS SCHREIBER ([id number]) [facility] ([facility]) [facility] [place] [address] Potassium [Moles/Vol] 5.3 mmol/L Normal 3.5-5.[address] [facility] Comment on above: Performed By: #### 3 0934-4 #### CURTIS SCHREIBER ([id number]) [facility] ([facility]) [facility] [place] [address] Protein [Mass/Vol] 5.1 g/dL Low 6.4-8.2 [facility] Comment on above: Performed By: #### 3 0934-4 #### CURTIS SCHREIBER ([id number]) [facility] ([facility]) [facility] [place] [address] Sodium [Moles/Vol] 133 mmol/L Low 136-145 [facility] Comment on above: Performed By: #### 3 0934-4 #### CURTIS SCHREIBER ([id number]) [facility] ([facility]) [address] [place] [address] Urea nitrogen [Mass/Vol] 25 mg/dL High 6- [facility] Comment on above: Performed By: #### 3 0934-4 #### CURTIS SCHREIBER ([id number]) [facility] ([facility]) [address] [place] [address] Bacteria identifiedon 2024 Bacteria identified Cx Nom (U) Test: Urine Culture Specimen Source: Clean Catch/Voided Specimen Type: Urine Specimen Date: 10/22/2024657 Result Date: 10/23/2024731 Result Status: Final result Abnormal: No Resulting Lab: [facility] [address] [place] [address] CULTURE No growth Normal [facility] Comment on above: Performed By: #### 3 0934-4 #### CURTIS SCHREIBER ([id number]) [facility] ([facility]) [address] [place] [address] CBC panel Auto (Bld)on 10-22 Erythrocyte distribution width (RBC) [Ratio] 14.2 % Normal 11.5-14.5 [facility] Comment on above: Performed By: #### 3 0934-4 #### CURTIS SCHREIBER ([id number]) [facility] ([facility]) [address] [place] [address] Hematocrit (Bld) [Volume fraction] 31.5 % Low 36.0-46.0 [facility] Comment on above: Performed By: #### 3 0934-4 #### CURTIS SCHREIBER ([id number]) [facility] ([facility]) [address] [place] [address] Hemoglobin (Bld) [Mass/Vol] 10.0 g/dL Low 12.0-16.0 [facility] Comment on above: Performed By: #### 3 0934-4 #### CURTIS SCHREIBER ([id number]) [facility] ([facility]) [address] [place] [address] MCH (RBC) [Entitic mass] 28.7 pg Normal 26.0-34.0 [facility] Comment on above: Performed By: #### 3 34-4 #### CURTIS SCHREIBER ([id number]) [facility] ([facility]) [address] [place] [address] MCHC (RBC) [Mass/Vol] 31.7 g/dL Low 32.0-36.[address] [facility] Comment on above: Performed By: #### 3 34-4 #### CURTIS SCHREIBER ([id number]) [facility] ([facility]) [address] [place] [address] MCV (RBC) [Entitic vol] 90 fL Normal 80-100 U [facility] Comment on above: Performed By: #### 3 34-4 #### CURTIS SCHREIBER ([id number]) [facility] ([facility]) [address] [place] [address] Nucleated RBC/100 WBC (Bld) [Ratio] 0.0 /100 WBCs Normal 0.0-0.0 [facility] Comment on above: Performed By: #### 3 34-4 #### CURTIS SCHREIBER ([id number]) [facility] ([facility]) [address] [place] [address] Platelets (Bld) [#/Vol] 424 x10*3/uL Normal 150-450 [facility] Comment on above: Performed By: #### 3 34-4 #### CURTIS SCHREIBER ([id number]) [facility] ([facility]) [address] [place] [address] RBC (Bld) [#/Vol] 3.49 x10*6/uL Low 4.00-5.20 [facility] Comment on above: Performed By: #### 3 0934-4 #### CURTIS SCHREIBER ([id number]) [facility] ([facility]) [address] [place] [address] WBC (Bld) [#/Vol] 8.5 x10*3/uL Normal 4.4-11.3 [facility] Comment on above: Performed By: #### 3 0934-4 #### CURTIS SCHREIBER ([id number]) [facility] ([facility]) [address] [place] [address] Comprehensive metabolic 2000 panelon 10-22-2024 Albumin BCP dye [Mass/Vol] 3.4 g/dL Normal 3.4-5.0 [facility] Comment on above: Performed By: #### 3 0934-4 #### CURTIS SCHREIBER ([id number]) [facility] ([facility]) [address] [place] [address] ALP [Catalytic activity/Vol] 84 U/L Normal 33-136 [facility] Comment on above: Performed By: #### 3 0934-4 #### CURTIS SCHREIBER ([id number]) [facility] ([facility]) [address] [place] [address] ALT With P-5'-P [Catalytic activity/Vol] 17 U/L Normal 7-45 [facility] Comment on above: Result Comment: Bobbi ents treated with Sulfasalazine may generate falsely decreased results for ALT. Performed By: #### 3 0934-4 #### CURTIS SCHREIBER ([id number]) [facility] ([facility]) [address] [place] [address] Anion gap [Moles/Vol] 13 mmol/L Normal 10-[address] [facility] Comment on above: Performed By: #### 3 0934-4 #### CURTIS SCHREIBER ([id number]) [facility] ([facility]) [address] [place] [address] 339[address] AST With P-5'-P [Catalytic activity/Vol] 17 U/L Normal 9-39 [facility] Comment on above: Performed By: #### 3 0934-4 #### CURTIS SCHREIBER ([id number]) [facility] ([facility]) [address] [place] [address] Bilirubin [Mass/Vol] 0.5 mg/dL Normal 0.0-1.2 [facility] Comment on above: Performed By: #### 3 0934-4 #### CURTIS SCHREIBER ([id number]) [facility] ([facility]) [address] [place] [address] Calcium [Mass/Vol] 7.6 mg/dL Low 8.6-10.3 [facility] Comment on above: Performed By: #### 3 0934-4 #### CURTIS SCHREIBER ([id number]) [facility] ([facility]) [address] [place] [address] Chloride [Moles/Vol] 93 mmol/L Low 98-107 [facility] Comment on above: Performed By: #### 3 0934-4 #### CURTIS SCHREIBER ([id number]) [facility] ([facility]) [address] [place] [address] CO2 [Moles/Vol] 26 mmol/L Normal 21-32 [facility] Comment on above: Performed By: #### 3 0934-4 #### CURTIS SCHREIBER ([id number]) [facility] ([facility]) [facility] [place] [address] Creatinine [Mass/Vol] 1.19 mg/dL High 0.50-1.[address] [facility] Comment on above: Performed By: #### 3 0934-4 #### CURTIS SCHREIBER ([id number]) [facility] ([facility]) [address] [place] [address] Glomerular filtration rate/1.73 sq M.predicted 44 mL/min/1.73m*2 Low >60 [facility] Comment on above: Result Comment: Calc ulations of estimated GFR are performed using the 2020 CKD-EPI Study Refit equation without the race variable for the IDMS-Traceable creatinine methods. https://jasn.asnjournals.org/content/early/ASN.2020 038581 Performed By: #### 3 0934-4 #### CURTIS SCHREIBER ([id number]) [facility] ([facility]) [address] [place] [address] Glucose [Mass/Vol] 98 mg/dL Normal 74-99 [facility] Comment on above: Performed By: #### 3 0934-4 #### CURTIS SCHREIBER ([id number]) [facility] ([facility]) [address] [place] [address] Potassium [Moles/Vol] 4.6 mmol/L Normal 3.5-5.[address] [facility] Comment on above: Performed By: #### 3 34-4 #### CURTIS SCHREIBER ([id number]) [facility] ([facility]) [address] [place] [address]84[address] Protein [Mass/Vol] 5.5 g/dL Low 6.4-8.2 [facility] Comment on above: Performed By: #### 3 34-4 #### CURTIS SCHREIBER ([id number]) [facility] ([facility]) [address] [place] [address]79[address] Sodium [Moles/Vol] 127 mmol/L Low 136-145 [facility] Comment on above: Performed By: #### 3 34-4 #### CURTIS SCHREIBER ([id number]) [facility] ([facility]) [address] [place] [address] 20665 Urea nitrogen [Mass/Vol] 46 mg/dL High 6-23 [facility] Comment on above: Performed By: #### 3 34-4 #### CURTIS SCHREIBER ([id number]) [facility] ([facility]) [address] [place] [address] Urinalysis complete panel (U )on 10-22-2024 Appearance (U) Clear Normal Clear [facility] Comment on above: Performed By: #### 3 34-4 #### CURTIS SCHREIBER ([id number]) [facility] ([facility]) [address] [place] [address] Bilirubin (U) [Mass/Vol] Negative Normal NEGATIVE [facility] Comment on above: Performed By: #### 3 34-4 #### CURTIS SCHREIBER ([id number]) [facility] ([facility]) [address] [place], [place] [address] Color (U) Yellow Normal Light-Yellow , Yellow, Dark-Yellow [facility] Comment on above: Performed By: #### 3 0934-4 #### CURTIS SCHREIBER ([id number]) [facility] ([facility]) [address] [place] [address] Glucose Auto test strip (U) [Mass/Vol] Normal Normal Normal [facility] Comment on above: Performed By: #### 3 0934-4 #### CURTIS SCHREIBER ([id number]) [facility] ([facility]) [address] [place] [address] Ketones (U) [Mass/Vol] Negative Normal NEGATIVE [facility]: Performed By: #### 3 0934-4 #### CURTIS SCHREIBER ([id number]) [facility] ([facility]) [address] [place] [address] Leukocyte esterase Auto test strip Ql (U) Negative Normal NEGATIVE [facility] Comment on above: Performed By: #### 3 0934-4 #### CURTIS SCHREIBER ([id number]) [facility] ([facility]) [address] [place] [address] Nitrite Auto test strip Ql (U) Negative Normal NEGATIVE [facility] Comment on above: Performed By: #### 3 0934-4 #### CURTIS SCHREIBER ([id number]) [facility] ([facility]) [address] [place], [place] [address] pH (U) 5.5 [pH] Normal 5.0, 5.5, 6.0, 6.5, 7.0, 7.5, 8.0 [facility] Comment on above: Performed By: #### 3 0934-4 #### CURTIS SCHREIBER ([id number]) [facility] ([facility]) [address] [place] [address] Protein (U) [Mass/Vol] 20 (TRACE) Normal NEGAT HEMANT, 10 (TRACE), 20 (TRACE) [facility] Comment on above: Performed By: #### 3 0934-4 #### CURTIS SCHREIBER ([id number]) [facility] ([facility]) [address] [place] [address] RBC (U) [#/Vol] Negative Normal NEGATIVE [facility] Comment on above: Performed By: #### 3 0934-4 #### CURTIS SCHREIBER ([id number]) [facility] ([facility]) [address] [place] [address] Specific gravity (U) [Rel density] 1.015 Normal 1.005-1.035 [facility] Comment on above: Performed By: #### 3 0934-4 #### CURTIS SCHREIBER ([id number]) [facility] ([facility]) [address] [place] [address] Urobilinogen (U) [Mass/Vol] Normal Normal Normal [facility] Comment on above: Performed By: #### 3 0934-4 #### CURTIS SCHREIBER ([id number]) [facility] ([facility]) [address] [place] [address] Urinalysis microscopic panel Auto Ql (U)on 10-22-2024 Crystals.amorphous Computer assisted (U) [#/Area] 1+ /HPF Normal NONE, 1+, 2+ [facility] Comment on above: Performed By: #### 3 0934-4 #### CURTIS SCHREIBER ([id number]) [facility] ([facility]) [address] [place] [address] Hyaline casts Auto (Urine sed) [#/Area] 1+ /LPF Abnormal NONE [facility] Comment on above: Performed By: #### 3 0934-4 #### CURTIS SCHERIBER ([id number]) [facility] ([facility]) [address] [place] [address] Leukocyte clumps Auto (Urine sed) [#/Area] RARE Normal Reference range not established. [facility] Comment on above: Performed By: #### 3 0934-4 #### CURTIS SCHREIBER ([id number]) [facility] ([facility]) [address] [place] [address] RBC Auto (Urine sed) [#/Area] 1-2 Normal NONE, 1-2, 3-5 [facility] Comment on above: Performed By: #### 3 0934-4 #### CURTIS SCHREIBER ([id number]) [facility] ([facility]) [facility] [place] [address] WBC Auto (Urine sed) [#/Area] 1-5 Normal 1-5, NONE [facility] Comment on above: Performed By: #### 3 0934-4 #### CURTIS SCHREIBER ([id number]) [facility] ([facility]) [address] [place] [address] Comprehensive metabolic 2000 panelon 10-13-2024 Albumin BCP dye [Mass/Vol] 3.7 g/dL 3.4 - 5.0 g/dL [facility] ALP [Catalytic activity/Vol] 81 U/L 33 - 136 U/L [facility] ALT With P-5'-P [Catalytic activity/Vol] 12 U/L 7 - 45 U/L [facility] Comment on above: Patients treated wit h Sulfasalazine may generate falsely decreased results for ALT. Anion gap [Moles/Vol] 14 mmol/L 10 - 2 0 mmol/L [facility] AST With P-5'-P [Catalytic activity/Vol] 15 U/L 9 - 39 U/L [facility] Bilirubin [Mass/Vol] 0.5 mg/dL 0.0 - 1 .2 mg/dL [facility] Calcium [Mass/Vol] 8.1 mg/dL Low 8.6 - 10. 3 mg/dL [facility] Chloride [Moles/Vol] 98 mmol/L 98 - 10 7 mmol/L [facility] CO2 [Moles/Vol] 24 mmol/L 21 - 32 mmol/L [facility] Creatinine [Mass/Vol] 1.52 mg/dL High 0.50 - 1.05 mg/dL [facility] GFR/1.73 sq M.predicted among non-blacks MDRD (S/P/Bld) [Vol rate/Area] 33 mL/min/{1.73_m2} Low - PINF [facility] Comment on above: Calculations of michael mated GFR are performed using the 2020 CKD-EPI Study Refit equation without the race variable for the IDMS-Traceable creatinine methods. https://jasn.asnjournals.org/content/early//ASN.2020 058801 Glucose [Mass/Vol] 128 mg/dL High 74 - 99 mg/dL [facility] Interpretation and review of laboratory results Abnormal [facility] Potassium [Moles/Vol] 4.8 mmol/L 3.5 - 5.3 mmol/L [facility] Protein [Mass/Vol] 6.4 g/dL 6.4 - 8.2 g/dL [facility] Sodium [Moles/Vol] 131 mmol/L Low 136 - 145 mmol/L [facility] Urea nitrogen [Mass/Vol] 59 mg/dL High 6 - 23 mg/dL [facility] Lipaseon 10-13-2024 Lipase [Catalytic activity/Vol] 48 U/L 9 - 82 U/L [facility] Lipase [Catalytic activity/V ol]on 10-13-2024 Interpretation and review of laboratory results Normal [facility] Venipuncture immediately after or during the administration of Metamizole may lead to falsely low results. Testing should be performed immediately prior to Metamizole dosing. [facility] XR Chest Single viewon 10-13 Cardiomegaly with mild interstitial prominence which could be chronic or relate to component developing interstitial edema/CHF. Correlate clinically. Deformity of the left humeral neck suspicious for age indeterminate fracture. Correlate with history and symptomatology for the need for further evaluation with dedicated shoulder/humeral x-rays. MACRO: None Signed by: Erin Garrett 10/13/2024 12:00 AM Dictation workstation: [id number] [id number] MMODAL Interpreted By: Erin Garrett, STUDY: XR CHEST 1 VIEW; 10/12/2024 11:40 pm INDICATION: Signs/Symptoms:dyspn ea. COMPARISON: None. ACCESSION NUMBER(S): [id number] ORDERING CLINICIAN: NICHOLE GUERRA FINDINGS: CARDIOMEDIASTINAL SILHOUETTE: [...] INDICATION: Signs/Symptoms:dyspn ea. COMPARISON: None. ACCESSION NUMBER(S): [id number] ORDERING CLINICIAN: NICHOLE GUERRA FINDINGS: CARDIOMEDIASTINAL SILHOUETTE: [...] Erin Garrett 10/13/2024 12:00 AM Dictation workstation: [id number] [facility] Work Phone: XR Chest Single viewOrdered By: Erin Garrett on 10-13-2024 [facility] Work Phone: Bacteria identifiedon 2024 Bacteria identified Cx Nom (U) Test: Urine Culture Specimen Source: Clean Catch/Voided Specimen Type: Urine Specimen Date: 10/12/20242340 Result Date: 10/14/2024930 Result Status: Final result Abnormal: No Resulting Lab: [facility] [address] [place] [address] CULTURE Growth indicates contamination with mixed bacterial darci. Repeat culture if clinically indicated. Normal [facility] Comment on above: Performed By: #### 3 0934-4 #### ACEVEDO ABDOUL ([id number]) [facility] ([facility]) [address] [place] [address] CBC W Auto Differential pane l (Bld)on 10-12-2024 Basophils (Bld) [#/Vol] 0.06 10*3/uL [facility] Basophils/100 WBC (Bld) 0.7 % 0.0 - 2.0 % [facility] Eosinophils (Bld) [#/Vol] 0.31 10*3/uL [facility] Eosinophils/100 WBC (Bld) 3.6 % 0.0 - 6.0 % [facility] Erythrocyte distribution width (RBC) [Ratio] 13.9 % 11.5 - 14.5 % [facility] [facility] Hematocrit (Bld) [Volume fraction] 31.4 % Low 36.0 - 46.0 % [facility] Hemoglobin (Bld) [Mass/Vol] 9.9 g/dL Low 12.0 - 16.0 g/dL [facility] Immature granulocytes (Bld) [#/Vol] 0.08 10*3/uL [facility] Immature granulocytes/100 WBC (Bld) 0.9 % 0.0 - 0.9 % [facility] Comment on above: Immature Granulocyte Count (IG) includes promyelocytes, myelocytes and metamyelocytes but does not include bands. Percent differential counts (%) should be interpreted in the context of the absolute cell counts (cells/UL). Interpretation and review of laboratory results Abnormal [facility] Lymphocytes (Bld) [#/Vol] 1.77 10*3/uL [facility] Lymphocytes/100 WBC (Bld) 20.3 % 13.0 - 44.0 % [facility] MCH (RBC) [Entitic mass] 29.2 pg 26.0 - 34.[address] [facility] MCHC (RBC) [Mass/Vol] 31.5 g/dL Low 32.0 - 36.0 g/dL [facility] MCV (RBC) [Entitic vol] 93 fL 80 - [address] [facility] Monocytes (Bld) [#/Vol] 0.81 10*3/uL High [facility] Monocytes/100 WBC (Bld) 9.3 % 2.0 - 10.0 % [facility] Neutrophils (Bld) [#/Vol] 5.7 10*3/uL High [facility] Comment on above: Percent differential counts (%) should be interpreted in the context of the absolute cell counts (cells/uL). Neutrophils/100 WBC (Bld) 65.2 % 40.0 - 80.0 % [facility] Nucleated RBC/100 WBC (Bld) [Ratio] 0 % [facility] Platelets (Bld) [#/Vol] 309 10*3/uL [facility] RBC (Bld) [#/Vol] 3.39 10*6/uL [facility] WBC (Bld) [#/Vol] 8.7 10*3/uL [facility] Basophils (Bld) [#/Vol] 0.06 x10*3/uL Normal 0.00-0.10 [facility] Comment on above: Performed By: #### 5 7021-8 #### CURTIS SCHREIBER ([id number]) [facility] ([facility]) [facility] [place] [address] Basophils/100 WBC (Bld) 0.7 % Normal 0.0-2.0 [facility] Comment on above: Performed By: #### 5 7021-8 #### CURTIS SCHREIBER ([id number]) [facility] ([facility]) [address] [place] [address] Eosinophils (Bld) [#/Vol] 0.31 x10*3/uL Normal 0.00-0.40 [facility] Comment on above: Performed By: #### 5 7021-8 #### CURTIS SCHREIBER ([id number]) [facility] ([facility]) [facility] [place] [address] Eosinophils/100 WBC (Bld) 3.6 % Normal 0.0-6.0 [facility] Comment on above: Performed By: #### 5 7021-8 #### CURTIS SCHREIBER ([id number]) [facility] ([facility]) [address] [place] [address] Erythrocyte distribution width (RBC) [Ratio] 13.9 % Normal 11.5-14.5 [facility] Comment on above: Performed By: #### 5 7021-8 #### CURTIS SCHREIBER ([id number]) [facility] ([facility]) [address] [place] [address] Hematocrit (Bld) [Volume fraction] 31.4 % Low 36.0-46.0 [facility] Comment on above: Performed By: #### 5 7021-8 #### CURTIS SCHREIBER ([id number]) [facility] ([facility]) [address] [place] [address] Hemoglobin (Bld) [Mass/Vol] 9.9 g/dL Low 12.0-16.0 [facility] Comment on above: Performed By: #### 5 7021-8 #### CURTIS SCHREIBER ([id number]) [facility] ([facility]) [address] [place] [address] Immature granulocytes (Bld) [#/Vol] 0.08 x10*3/uL Normal 0.00-0.50 [facility] Comment on above: Performed By: #### 5 7021-8 #### CURTIS SCHREIBER ([id number]) [facility] ([facility]) [address] [place] [address] Immature granulocytes/100 WBC (Bld) 0.9 % Normal 0.0-0.9 [facility] Comment on above: Result Comment: Breana ture Granulocyte Count (IG) includes promyelocytes, myelocytes and metamyelocytes but does not include bands. Percent differential counts (%) should be interpreted in the context of the absolute cell counts (cells/UL). Performed By: #### 5 7021-8 #### CURTIS SCHREIBER ([id number]) [facility] ([facility]) [address] [place], [place] [address] Lymphocytes (Bld) [#/Vol] 1.77 x10*3/uL Normal 0.80-3.00 [facility] Comment on above: Performed By: #### 5 7021-8 #### CURTIS SCHREIBER ([id number]) [facility] ([facility]) [address] [place] [address] Lymphocytes/100 WBC (Bld) 20.3 % Normal 13.0-44.0 [facility] Comment on above: Performed By: #### 5 7021-8 #### CURTIS SCHREIBER ([id number]) [facility] ([facility]) [address] [place] [address] 11043 MCH (RBC) [Entitic mass] 29.2 pg Normal 26.0-34.0 [facility] Comment on above: Performed By: #### 5 7021-8 #### CURTIS SCHREIBER ([id number]) [facility] ([facility]) [address] [place] [address] 78670 MCHC (RBC) [Mass/Vol] 31.5 g/dL Low 32.0-36.[address] [facility] Comment on above: Performed By: #### 5 7021-8 #### CURTIS SCHREIBER ([id number]) [facility] ([facility]) [address] [place] [address] 44980 MCV (RBC) [Entitic vol] 93 fL Normal 80-100 [facility] Comment on above: Performed By: #### 5 7021-8 #### CURTIS SCHREIBER ([id number]) [facility] ([facility]) [address] [place] [address] 21339 Monocytes (Bld) [#/Vol] 0.81 x10*3/uL High 0.05-0.80 [facility] Comment on above: Performed By: #### 5 7021-8 #### CURTIS SCHREIBER ([id number]) [facility] ([facility]) [address] [place] [address] 41012 Monocytes/100 WBC (Bld) 9.3 % Normal 2.0-10.0 [facility] Comment on above: Performed By: #### 5 7021-8 #### CURTIS SCHREIBER ([id number]) [facility] ([facility]) [address] [place] [address] 44539 Neutrophils (Bld) [#/Vol] 5.70 x10*3/uL High 1.60-5.50 [facility] Comment on above: Result Comment: Perc ent differential counts (%) should be interpreted in the context of the absolute cell counts (cells/uL). Performed By: #### 5 7021-8 #### CURTIS SCHREIBER ([id number]) [facility] ([facility]) [address] [place] [address] 54239 Neutrophils/100 WBC (Bld) 65.2 % Normal 40.0-80.0 [facility] Comment on above: Performed By: #### 5 7021-8 #### CURTIS SCHREIBER ([id number]) [facility] ([facility]) [address] [place] [address] 21820 Nucleated RBC/100 WBC (Bld) [Ratio] 0.0 /100 WBCs Normal 0.0-0.0 [facility] Comment on above: Performed By: #### 5 7021-8 #### CURTIS SCHREIBER ([id number]) [facility] ([facility]) [address] [place] [address] 68306 Platelets (Bld) [#/Vol] 309 x10*3/uL Normal 150-450 [facility] Comment on above: Performed By: #### 5 7021-8 #### CURTIS SCHREIBER ([id number]) [facility] ([facility]) [address] [place] [address] 72632 RBC (Bld) [#/Vol] 3.39 x10*6/uL Low 4.00-5.20 [facility] Comment on above: Performed By: #### 5 7021-8 #### CURTIS SCHREIBER ([id number]) [facility] ([facility]) [address] [place] [address] 21129 WBC (Bld) [#/Vol] 8.7 x10*3/uL Normal 4.4-11.3 [facility] Comment on above: Performed By: #### 5 7021-8 #### CURTIS SCHREIBER ([id number]) [facility] ([facility]) [address] [place] [address] CBC panel Auto (Bld)on 10-12 Erythrocyte distribution width (RBC) [Ratio] 13.7 % Normal 11.5-14.5 [facility] Comment on above: Performed By: #### 5 8410-2 #### CURTIS SCHREIBER ([id number]) [facility] ([facility]) [address] [place] [address] Hematocrit (Bld) [Volume fraction] 34.2 % Low 36.0-46.0 [facility] Comment on above: Performed By: #### 5 8410-2 #### CURTIS SCHREIBER ([id number]) [facility] ([facility]) [address] [place] [address] Hemoglobin (Bld) [Mass/Vol] 10.6 g/dL Low 12.0-16.0 [facility] Comment on above: Performed By: #### 5 8410-2 #### CURTIS SCHREIBER ([id number]) [facility] ([facility]) [address] [place] [address] MCH (RBC) [Entitic mass] 28.6 pg Normal 26.0-34.0 [facility] Comment on above: Performed By: #### 5 8410-2 #### CURTIS SCHREIBER ([id number]) [facility] ([facility]) [address] [place] [address] MCHC (RBC) [Mass/Vol] 31.0 g/dL Low 32.0-36.[address] [facility] Comment on above: Performed By: #### 5 8410-2 #### CURTIS SCHREIBER ([id number]) [facility] ([facility]) [address] [place], [place] [address] MCV (RBC) [Entitic vol] 92 fL Normal 80-100 [facility] Comment on above: Performed By: #### 5 8410-2 #### CURTIS SCHREIBER ([id number]) [facility] ([facility]) [address] [place], [place] [address] Nucleated RBC/100 WBC (Bld) [Ratio] 0.0 /100 WBCs Normal 0.0-0.0 [facility] Comment on above: Performed By: #### 5 8410-2 #### CURTIS SCHREIBER ([id number]) [facility] ([facility]) [address] [place] [address] 40590 Platelets (Bld) [#/Vol] 335 x10*3/uL Normal 150-450 [facility] Comment on above: Performed By: #### 5 8410-2 #### CURTIS SCHREIBER ([id number]) [facility] ([facility]) [address] [place] [address] 34043 RBC (Bld) [#/Vol] 3.70 x10*6/uL Low 4.00-5.20 [facility] Comment on above: Performed By: #### 5 8410-2 #### CURTIS SCHREIBER ([id number]) [facility] ([facility]) [address] [place] [address] 46020 WBC (Bld) [#/Vol] 8.0 x10*3/uL Normal 4.4-11.3 [facility] Comment on above: Performed By: #### 5 8410-2 #### CURTIS SCHREIBER ([id number]) [facility] ([facility]) [address] [place] [address] 36347 Comprehensive metabolic 2000 panelon 10-12-2024 Albumin BCP dye [Mass/Vol] 3.7 g/dL Normal 3.4-5.0 [facility] Comment on above: Performed By: #### 2 4323-8 #### CURTIS SCHREIBER ([id number]) [facility] ([facility]) [address] [place] [address] 05014 ALP [Catalytic activity/Vol] 81 U/L Normal 33-136 [facility] Comment on above: Performed By: #### 2 4323-8 #### CURTIS SCHREIBER ([id number]) [facility] ([facility]) [address] [place] [address] 73589 ALT With P-5'-P [Catalytic activity/Vol] 12 U/L Normal 7-45 [facility] Comment on above: Result Comment: Bobbi ents treated with Sulfasalazine may generate falsely decreased results for ALT. Performed By: #### 2 4323-8 #### CURTIS SCHREIBER ([id number]) [facility] ([facility]) [address] [place] [address] Anion gap [Moles/Vol] 14 mmol/L Normal 10-[address] [facility] Comment on above: Performed By: #### 2 4323-8 #### CURTIS SCHREIBER ([id number]) [facility] ([facility]) [address] [place] [address] AST With P-5'-P [Catalytic activity/Vol] 15 U/L Normal 9-39 [facility] Comment on above: Performed By: #### 2 432-8 #### CURTIS SCHREIBER ([id number]) [facility] ([facility]) [address] [place] [address] Bilirubin [Mass/Vol] 0.5 mg/dL Normal 0.0-1.2 [facility] Comment on above: Performed By: #### 2 432-8 #### CURTIS SCHREIBER ([id number]) [facility] ([facility]) [address] [place] [address] 17604 Calcium [Mass/Vol] 8.1 mg/dL Low 8.6-10.3 [facility] Comment on above: Performed By: #### 2 4323-8 #### CURTIS SCHREIBER ([id number]) [facility] ([facility]) [address] [place] [address] Chloride [Moles/Vol] 98 mmol/L Normal 98-107 [facility] Comment on above: Performed By: #### 2 4323-8 #### CURTIS SCHREIBER ([id number]) [facility] ([facility]) [facility] [place] [address] CO2 [Moles/Vol] 24 mmol/L Normal 21-32 [facility] Comment on above: Performed By: #### 2 4323-8 #### CURTIS SCHREIBER ([id number]) [facility] ([facility]) [address] [place] [address] Creatinine [Mass/Vol] 1.52 mg/dL High 0.50-1.[address] [facility] Comment on above: Performed By: #### 2 4323-8 #### CURTIS SCHREIBER ([id number]) [facility] ([facility]) [address] [place] [address] Glomerular filtration rate/1.73 sq M.predicted 33 mL/min/1.73m*2 Low >60 [facility] Comment on above: Result Comment: Calc ulations of estimated GFR are performed using the 2020 CKD-EPI Study Refit equation without the race variable for the IDMS-Traceable creatinine methods. https://jasn.asnjournals.org/content/early//ASN.2020 584207 Performed By: #### 2 4323-8 #### CURTIS SCHREIBER ([id number]) [facility] ([facility]) [address] [place] [address] Glucose [Mass/Vol] 128 mg/dL High 74-99 [facility] Comment on above: Performed By: #### 2 4323-8 #### CURTIS SCHREIBER ([id number]) [facility] ([facility]) [facility] [place] [address] Potassium [Moles/Vol] 4.8 mmol/L Normal 3.5-5.[address] [facility] Comment on above: Performed By: #### 2 4323-8 #### CURTIS SCHREIBER ([id number]) [facility] ([facility]) [facility] [place] [address] Protein [Mass/Vol] 6.4 g/dL Normal 6.4-8.2 [facility] Comment on above: Performed By: #### 2 4323-8 #### CURTIS SCHREIBER ([id number]) [facility] ([facility]) [facility] [place] [address] Sodium [Moles/Vol] 131 mmol/L Low 136-145 [facility] Comment on above: Performed By: #### 2 4323-8 #### CURTIS SCHREIBER ([id number]) [facility] ([facility]) [address] [place] [address] 54015 Urea nitrogen [Mass/Vol] 59 mg/dL High 6-23 [facility] Comment on above: Performed By: #### 2 4323-8 #### CURTIS SCHREIBER ([id number]) [facility] ([facility]) [address] [place] [address] 64710 Albumin BCP dye [Mass/Vol] 3.9 g/dL Normal 3.4-5.0 [facility] Comment on above: Performed By: #### 2 4323-8 #### CURTIS SCHREIBER ([id number]) [facility] ([facility]) [address] [place] [address] 07762 ALP [Catalytic activity/Vol] 84 U/L Normal 33-136 [facility] Comment on above: Performed By: #### 2 4323-8 #### CURTIS SCHREIBER ([id number]) [facility] ([facility]) [address] [place] [address] 28274 ALT With P-5'-P [Catalytic activity/Vol] 13 U/L Normal 7-45 [facility] Comment on above: Result Comment: Bobbi ents treated with Sulfasalazine may generate falsely decreased results for ALT. Performed By: #### 2 4323-8 #### CURTIS SCHREIBER ([id number]) [facility] ([facility]) [address] [place] [address] 52865 Anion gap [Moles/Vol] 15 mmol/L Normal 10-[address] [facility] Comment on above: Performed By: #### 2 4323-8 #### CURTIS SCHREIBER ([id number]) [facility] ([facility]) [address] [place] [address] 27228 AST With P-5'-P [Catalytic activity/Vol] 20 U/L Normal 9-39 [facility] Comment on above: Performed By: #### 2 4323-8 #### CURTIS SCHREIBER ([id number]) [facility] ([facility]) [address] [place] [address] Bilirubin [Mass/Vol] 0.5 mg/dL Normal 0.0-1.2 [facility] Comment on above: Performed By: #### 2 4323-8 #### CURTIS SCHREIBER ([id number]) [facility] ([facility]) [address] [place] [address] Calcium [Mass/Vol] 8.2 mg/dL Low 8.6-10.3 [facility] Comment on above: Performed By: #### 2 4323-8 #### CURTIS SCHREIBER ([id number]) [facility] ([facility]) [address] [place] [address] 28743 Chloride [Moles/Vol] 99 mmol/L Normal 98-107 [facility] Comment on above: Performed By: #### 2 4323-8 #### CURTIS SCHREIBER ([id number]) [facility] ([facility]) [address] [place] [address] 99046 CO2 [Moles/Vol] 24 mmol/L Normal 21-32 [facility] Comment on above: Performed By: #### 2 4323-8 #### CURTIS SCHREIBER ([id number]) [facility] ([facility]) [facility] [place] [address] Creatinine [Mass/Vol] 0.91 mg/dL Normal 0.50-1.[address] [facility] Comment on above: Performed By: #### 2 4323-8 #### CURTIS SCHREIBER ([id number]) [facility] ([facility]) [address] [place] [address] 95808 Glomerular filtration rate/1.73 sq M.predicted 61 mL/min/1.73m*2 Normal >60 [facility] Comment on above: Result Comment: Calc ulations of estimated GFR are performed using the 2020 CKD-EPI Study Refit equation without the race variable for the IDMS-Traceable creatinine methods. https://jasn.asnjournals.org/content//ASN.2020 895849 Performed By: #### 2 4323-8 #### CURTIS SCHREIBER ([id number]) [facility] ([facility]) [facility] [place] [address] Glucose [Mass/Vol] 102 mg/dL High 74-99 [facility] Comment on above: Performed By: #### 2 432-8 #### CURTIS SCHREIBER ([id number]) [facility] ([facility]) [address] [place] [address] 86118 Potassium [Moles/Vol] 4.8 mmol/L Normal 3.5-5.[address] [facility] Comment on above: Performed By: #### 2 432-8 #### CURTIS SCHREIBER ([id number]) [facility] ([facility]) [address] [place] [address] 97562 Protein [Mass/Vol] 6.3 g/dL Low 6.4-8.2 [facility] Comment on above: Performed By: #### 2 432-8 #### CURTIS SCHREIBER ([id number]) [facility] ([facility]) [address] [place] [address] 06860 Sodium [Moles/Vol] 133 mmol/L Low 136-145 [facility] Comment on above: Performed By: #### 2 4323-8 #### CURTIS SCHREIBER ([id number]) [facility] ([facility]) [address] [place] [address] 50244 Urea nitrogen [Mass/Vol] 41 mg/dL High 6-23 [facility] Comment on above: Performed By: #### 2 4323-8 #### CURTIS SCHREIBER ([id number]) [facility] ([facility]) [address] [place] [address] 45126 ECG 12-LEADon 10-12-2024 ECG 12-LEAD Ventricular Rate 91 Atrial Rate 91 P-R Interval 178 QRS Duration 122 Q-T Interval 378 QTC Calculation(Bazett) 464 P [place] 51 R [place] -27 T [place] 38 QRS Count 14 Q Onset 221 [...] Garza ([id number]) on 10/13/2024 6:20:48 PM Normal [facility] Natriuretic peptide B [Mass/ Vol]on 10-12-2024 Natriuretic peptide B (Bld) [Mass/Vol] 48 pg/mL Normal 0-99 [facility] Comment on above: Order Comment: <100 pg/mL - Heart failure unlikely 100-299 pg/mL - Intermediate probability of acute heart failure exacerbation. Correlate with clinical context and patient history. >=300 pg/mL - Heart Failure likely. Correlate with clinical context and patient history. BNP testing is performed using different testing methodology at [facility] than at other [facility]. Direct result comparisons should only be made within the same method. Performed By: #### 3 0934-4 #### CURTIS SCHREIBER ([id number]) [facility] ([facility]) [address] [place] [address] No Panel Informationon 10-12 Interpretation and review of laboratory results Abnormal [facility] Thyrotropinon 10-12-2024 TSH Qn 0.61 m[IU]/L Normal 0.44-3.98 [facility] Comment on above: Order Comment: TSH t esting is performed using different testing methodology at [facility] than at other [facility]. Direct result comparisons should only be made within the same method. Performed By: #### 3 016-3 #### CURTIS SCHREIBER ([id number]) [facility] ([facility]) [address] [place] [address] Triacylglycerol lipaseon Lipase [Catalytic activity/Vol] 48 U/L Normal 9-82 [facility] Comment on above: Order Comment: Venip uncture immediately after or during the administration of Metamizole may lead to falsely low results. Testing should be performed immediately prior to Metamizole dosing. Performed By: #### 3 040-3 #### CURTIS SCHREIBER ([id number]) [facility] ([facility]) [address] [place] [address] Urinalysis complete W Reflex Culture panel (U)on 10-12-2024 Appearance (U) Turbid Abnormal Clear [facility] Bilirubin (U) [Mass/Vol] Negative NEGATIVE mg/dL [facility] Color (U) Light-Yellow Light-Yellow , Yellow, Dark-Yellow [facility] Glucose Auto test strip (U) [Mass/Vol] Normal Normal mg/dL [facility] Ketones (U) [Mass/Vol] Negative NEGAT HEMANT mg/dL [facility] Leukocyte esterase Auto test strip Ql (U) 500 Bryan/uL Abnormal NEGATIVE [facility] Nitrite Auto test strip Ql (U) Negative NEGATIVE [facility] pH (U) 5.5 [pH] 5.0, 5.5, 6.0, 6.5, 7.0, 7.5, 8.0 [facility] Protein (U) [Mass/Vol] 30 (1+) Abnormal NEGAT HEMANT, 10 (TRACE), 20 (TRACE) mg/dL [facility] RBC (U) [#/Vol] Negative NEGATIVE mg/dL [facility] Specific gravity (U) [Rel density] 1.019 1.005 - 1.035 [facility] Urobilinogen (U) [Mass/Vol] Normal Normal mg/dL [facility] Appearance (U) Turbid Normal Clear [facility] Comment on above: Performed By: #### 5 8077-9 #### CURTIS SCHREIBER ([id number]) [facility] ([facility]) [address] [place] [address] 25367 Bilirubin (U) [Mass/Vol] Negative Normal NEGATIVE [facility] Comment on above: Performed By: #### 5 8077-9 #### CURTIS SCHREIBER ([id number]) [facility] ([facility]) [address] [place] [address] 71489 Color (U) Light-Yellow Normal Light-Yellow , Yellow, Dark-Yellow [facility] Comment on above: Performed By: #### 5 8077-9 #### CURTIS SCHREIBER ([id number]) [facility] ([facility]) [address] [place] [address] 23368 Glucose Auto test strip (U) [Mass/Vol] Normal Normal Normal [facility] Comment on above: Performed By: #### 5 8077-9 #### CURTIS SCHREIBER ([id number]) [facility] ([facility]) [address] [place] [address] 09961 Ketones (U) [Mass/Vol] Negative Normal NEGATIVE [facility] Comment on above: Performed By: #### 5 8077-9 #### CURTIS SCHREIBER ([id number]) [facility] ([facility]) [address] [place] [address]64 Leukocyte esterase Auto test strip Ql (U) 500 Bryan/uL Abnormal NEGATIVE [facility] Comment on above: Performed By: #### 5 8077-9 #### CURTIS SCHREIBER ([id number]) [facility] ([facility]) [address] [place] [address] 35238 Nitrite Auto test strip Ql (U) Negative Normal NEGATIVE [facility] Comment on above: Performed By: #### 5 8077-9 #### CURTIS SCHREIBER ([id number]) [facility] ([facility]) [address] [place] [address] 94494 pH (U) 5.5 [pH] Normal 5.0, 5.5, 6.0, 6.5, 7.0, 7.5, 8.0 [facility] Comment on above: Performed By: #### 5 8077-9 #### CURTIS SCHREIBER ([id number]) [facility] ([facility]) [address] [place] [address] 11239 Protein (U) [Mass/Vol] 30 (1+) Abnormal NEGAT HEMANT, 10 (TRACE), 20 (TRACE) [facility] Comment on above: Performed By: #### 5 8077-9 #### CURTIS SCHREIBER ([id number]) [facility] ([facility]) [address] [place] [address] 22804 RBC (U) [#/Vol] Negative Normal NEGATIVE [facility] Comment on above: Performed By: #### 5 8077-9 #### CURTIS SCHREIBER ([id number]) [facility] ([facility]) [facility] [place] [address] Specific gravity (U) [Rel density] 1.019 Normal 1.005-1.035 [facility] Comment on above: Performed By: #### 5 8077-9 #### CURTIS SCHREIBER ([id number]) [facility] ([facility]) [address] [place] [address] Urobilinogen (U) [Mass/Vol] Normal Normal Normal [facility] Comment on above: Performed By: #### 5 8077-9 #### CURTIS SCHREIBER ([id number]) [facility] ([facility]) [address] [place] [address] Urinalysis microscopic panel Auto Ql (U)on 10-12-2024 Epithelial cells.squamous Auto (Urine sed) [#/Area] 10-25 (FEW) Reference range not established. /HPF [facility] Hyaline casts Auto (Urine sed) [#/Area] 1+ Abnormal NONE /LPF [facility] Mucus Auto (Urine sed) [#/Area] FEW Reference range not established. /LPF [facility] RBC Auto (Urine sed) [#/Area] 3-5 NONE, 1-2, 3-5 /HPF [facility] Transitional cells Computer assisted (U) [#/Area] 1-2 (FEW) Reference range not established. /HPF [facility] WBC Auto (Urine sed) [#/Area] 21-50 Abnormal 1-5, NONE /HPF [facility] Yeast.budding Computer assisted (U) [#/Area] PRESENT Abnormal NONE /HPF [facility] Epithelial cells.squamous Auto (Urine sed) [#/Area] 10-25 (FEW) Normal Reference range not established. [facility] Comment on above: Performed By: #### 5 3315-8 #### CURTIS SCHREIBER ([id number]) [facility] ([facility]) [address] [place] [address] Hyaline casts Auto (Urine sed) [#/Area] 1+ /LPF Abnormal NONE [facility] Comment on above: Performed By: #### 5 3315-8 #### CURTIS SCHREIBER ([id number]) [facility] ([facility]) [address] [place] [address] Mucus Auto (Urine sed) [#/Area] FEW Normal Reference range not established. [facility] Comment on above: Performed By: #### 5 3315-8 #### CURTIS SCHREIBER ([id number]) [facility] ([facility]) [address] [place] [address] RBC Auto (Urine sed) [#/Area] 3-5 Normal NONE, 1-2, 3-5 [facility] Comment on above: Performed By: #### 5 3315-8 #### CURTIS SCHREIBER ([id number]) [facility] ([facility]) [address] [place] [address] Transitional cells Computer assisted (U) [#/Area] 1-2 (FEW) Normal Reference range not established. [facility] Comment on above: Performed By: #### 5 3315-8 #### CURTIS SCHREIBER ([id number]) [facility] ([facility]) [address] [place] [address] WBC Auto (Urine sed) [#/Area] 21-50 Abnormal 1-5, NONE [facility] Comment on above: Performed By: #### 5 3315-8 #### CURTIS SCHREIBER ([id number]) [facility] ([facility]) [address] [place] [address] Yeast.budding Computer assisted (U) [#/Area] PRESENT Abnormal NONE [facility] Comment on above: Performed By: #### 5 3315-8 #### CURTIS SCHREIBER ([id number]) [facility] ([facility]) [address] [place] [address] XR CHEST 1 VIEWon 10-12-2024 XR CHEST 1 VIEW Interpreted By: Erin Garrett, STUDY: XR CHEST 1 VIEW; 10/12/2024 11:40 pm INDICATION: Signs/Symptoms:dyspn ea. COMPARISON: None. ACCESSION NUMBER(S): [id number] ORDERING CLINICIAN: NICHOLE GUERRA FINDINGS: CARDIOMEDIASTINAL SILHOUETTE: [...] Erin Garrett 10/13/2024 12:00 AM Dictation workstation: [id number] [facility] XR Chest Single viewon 10-12 Radiology Study observation (narrative) [facility] Work Phone: Basic Metabolic Profile (BMP )on 10-10-2024 BUN Normal 4-[address] [facility] Comment on above: Result Comment: Canc elled via OM: Order cancelled - Patient discharged Performed By: #### L 500.2500 ####[facility] [address] [facility] [address] BUN/CRE Normal 10-[address] [facility] Comment on above: Result Comment: Canc elled via OM: Order cancelled - Patient discharged Performed By: #### L 500.2500 ####[facility] [address] [facility] [address] Calcium Normal 7.6-11.[address] [facility] Comment on above: Result Comment: Canc elled via OM: Order cancelled - Patient discharged Performed By: #### L 500.2500 ####[facility] [address] [facility] [address] CL Normal 98-[address] [facility] Comment on above: Result Comment: Canc elled via OM: Order cancelled - Patient discharged Performed By: #### L 500.2500 ####[facility] [address] [facility] [address] CO2 Normal 21.0-32.[address] [facility] Comment on above: Result Comment: Canc elled via OM: Order cancelled - Patient discharged Performed By: #### L 500.2500 ####[facility] [address] [place], [address] CREAT,SERUM Normal 0.70-1.[address] [facility] Comment on above: Result Comment: Canc elled via OM: Order cancelled - Patient discharged Performed By: #### L 500.2500 ####[facility] [address] [place], [address] eGFR Normal >[address] [facility] Comment on above: Result Comment: Canc elled via OM: Order cancelled - Patient discharged Performed By: #### L 500.2500 ####[facility] [address] [place], [address] GAP Normal 5-[address] [facility] Comment on above: Result Comment: Canc elled via OM: Order cancelled - Patient discharged Performed By: #### L 500.2500 ####[facility] [address] [place], [address] GLU Normal 70-[address] [facility] Comment on above: Result Comment: Canc elled via OM: Order cancelled - Patient discharged Performed By: #### L 500.2500 ####[facility] [address] [place], [address] Potassium Normal 3.3-5.[address] [facility] Comment on above: Result Comment: Canc elled via OM: Order cancelled - Patient discharged Performed By: #### L 500.2500 ####[facility] [address] [place], [address] Basic Metabolic Profile (BMP) Normal 133-[address] [facility] Comment on above: Result Comment: Canc elled via OM: Order cancelled - Patient discharged Performed By: #### L 500.2500 ####[facility] [address] [place], [address] CBC-Complete Blood Cnt No Di ffon 10-10-2024 HCT Normal 37-[address] [facility] Comment on above: Result Comment: Canc elled via OM: Order cancelled - Patient discharged Performed By: #### L 100.0500 ####[facility] [address], [address] HGB Normal 12.0-15.[address] [facility] Comment on above: Result Comment: Canc elled via OM: Order cancelled - Patient discharged Performed By: #### L 100.0500 ####[facility] [address] [place], [address] MCH Normal 27.0-32.[address] [facility] Comment on above: Result Comment: Canc elled via OM: Order cancelled - Patient discharged Performed By: #### L 100.0500 ####[facility] [address] [place], [address] MCHC Normal 32-[address] [facility] Comment on above: Result Comment: Canc elled via OM: Order cancelled - Patient discharged Performed By: #### L 100.0500 ####[facility] [address] [place], [address] MCV Normal 81-[address] [facility] Comment on above: Result Comment: Canc elled via OM: Order cancelled - Patient discharged Performed By: #### L 100.0500 ####[facility] [address] [place], [address] PLT Normal 150-[address] [facility] Comment on above: Result Comment: Canc elled via OM: Order cancelled - Patient discharged Performed By: #### L 100.0500 ####[facility] [address] [place], [address] RBC Normal 4.2-5.[address] [facility] Comment on above: Result Comment: Canc elled via OM: Order cancelled - Patient discharged Performed By: #### L 100.0500 ####[facility] [address] [place], [address] RDW CV Normal 11.6-14.[address] [facility] Comment on above: Result Comment: Canc elled via OM: Order cancelled - Patient discharged Performed By: #### L 100.0500 ####[facility] [address] [place], [address] RDW SD Normal 35.1-43.[address] [facility] Comment on above: Result Comment: Canc elled via OM: Order cancelled - Patient discharged Performed By: #### L 100.0500 ####[facility] [address] [place], [address] WBC Normal 4.4-11.[address] [facility] Comment on above: Result Comment: Canc elled via OM: Order cancelled - Patient discharged Performed By: #### L 100.0500 ####[facility] [address], [address] COVID 19 AG RAPID (ALBERT Kwan)on 10-09-2024 SARS-CoV-2 (COVID-19) RNA RHYS+probe Ql (Unsp spec) Normal [facility] Comment on above: Performed By: #### M 100.505 ####[facility] [address], [address] COVID-19 virus antigen assay Ordered By: Santino Haas on 10-09-2024 SARS-CoV-2 (COVID-19) Ag IA.rapid Ql (Resp) [facility] Anion gap in Serum or Plasma Ordered By: Santino Haas on 10-08-2024 Anion gap [Moles/Vol] 13 mmol/L 5-15 [facility] BUN/creatinine ratioOrdered By: Santino Haas on 10-08-2024 Urea nitrogen/Creatinine [Mass ratio] 23.6 mg/mg High - [facility] Basic Metabolic Profile (BMP )on 10-08-2024 BUN/CRE 23.6 RATIO High 10-[address] [facility] Comment on above: Performed By: #### L 500.2500 ####[facility] [address] [place], [address] Calcium [Mass/Vol] 8.3 mg/dL Normal 7.6-11.0 [facility] Comment on above: Performed By: #### L 500.2500 ####[facility] [address] [place], [address] Chloride [Moles/Vol] 99 mmol/L Normal 98-108 [facility] Comment on above: Performed By: #### L 500.2500 ####[facility] [address] [place], [address] CO2 [Moles/Vol] 21.3 mmol/L Normal 21.0-32.[address] [facility] Comment on above: Performed By: #### L 500.2500 ####[facility] [address], [address] Creatinine [Mass/Vol] 0.86 mg/dL Normal 0.70-1.20 [facility] Comment on above: Performed By: #### L 500.2500 ####[facility] [address] [place], [address] ECRCL 39.07 ml/min Low 50-[address] [facility] Comment on above: Performed By: #### L 500.2500 ####[facility] [address] [place], [address] GAP 13 Normal 5-[address] [facility] Comment on above: Performed By: #### L 500.2500 ####[facility] [address] [place], [address] GFR/1.73 sq M.predicted among non-blacks MDRD (S/P/Bld) [Vol rate/Area] 65 mL/min/{1.73_m2} Normal >[address] [facility] Comment on above: Result Comment: mL/m in/1.73m2 CKD-EPI Creatinine Equation (2020) Performed By: #### L 500.2500 ####[facility] [address] [place], [address] Glucose [Mass/Vol] 120 mg/dL High 70-99 [facility] Comment on above: Performed By: #### L 500.2500 ####[facility] [address] [place], [address] Potassium [Moles/Vol] 4.7 mmol/L Normal 3.3-5.1 [facility] Comment on above: Performed By: #### L 500.2500 ####[facility] [address] [place], [address] Sodium [Moles/Vol] 132 mmol/L Low 133-145 [facility] Comment on above: Performed By: #### L 500.2500 ####[facility] [address] [place], [address] Urea nitrogen [Mass/Vol] 20 mg/dL High 4-[address] [facility] Comment on above: Performed By: #### L 500.2500 ####[facility] [address] [place], [address] CBC-Complete Blood Cnt No Di ffon 10-08-2024 Erythrocyte distribution width (RBC) [Ratio] 13.4 % Normal 11.6-14.[address] [facility] Comment on above: Performed By: #### L 100.0500 ####[facility] [address] [place], [address] Hematocrit (Bld) [Volume fraction] 35.4 % Low 37-[address] [facility] Comment on above: Performed By: #### L 100.0500 ####[facility] [address] [place], [address] Hemoglobin (Bld) [Mass/Vol] 11.3 g/dL Low 12.0-15.[address] [facility] Comment on above: Performed By: #### L 100.0500 ####[facility] [address] [place], [address] MCH (RBC) [Entitic mass] 28.8 pg Normal 27.0-32.[address] [facility] Comment on above: Performed By: #### L 100.0500 ####[facility] [address] [place], [address] MCHC (RBC) [Mass/Vol] 31.9 g/dL Low 32-36 [facility] Comment on above: Performed By: #### L 100.0500 ####[facility] [address] [place], [address] MCV (RBC) [Entitic vol] 90.1 fL Normal 81-99 [facility] Comment on above: Performed By: #### L 100.0500 ####[facility] [address] [place], [address] Platelet mean volume (Bld) [Entitic vol] 9.5 fL Normal 6.2-12.[address] [facility] Comment on above: Performed By: #### L 100.0500 ####[facility] [address] [place], [address] Platelets (Bld) [#/Vol] 377 10*3/uL Normal 150-[address] [facility] Comment on above: Performed By: #### L 100.0500 ####[facility] [address] [place], [address] RBC (Bld) [#/Vol] 3.93 10*6/uL Low 4.2-5.4 [facility] Comment on above: Performed By: #### L 100.0500 ####[facility] [address] [place], [address] RDW SD 44.8 fl High 35.1-43.[address] [facility] Comment on above: Performed By: #### L 100.0500 ####[facility] [address] [place], [place], [address] WBC (Bld) [#/Vol] 8.0 10*3/uL Normal 4.4-11.0 [facility] Comment on above: Performed By: #### L 100.0500 ####[facility] [address] [place], [place], [id number] Carbon dioxide, total [Moles /volume] in Central venous bloodOrdered By: Santino Haas on 10-08-2024 CO2 [Moles/Vol] 21.3 mmol/L 21.0-32.[address] [facility] Chloride assayOrdered By: Charly Haas on 10-08-2024 Chloride [Moles/Vol] 99 mmol/L 98-108 [facility] Erythrocyte distribution wid th ratioOrdered By: Santino Haas on 10-08-2024 Erythrocyte distribution width (RBC) [Ratio] 13.4 % 11.6-14.[address] [facility] Erythrocyte distribution wid th standard deviationOrdered By: Santino Haas on 10-08-2024 Erythrocyte distribution width (RBC) [Ratio] 44.8 fl High 35.1-43.[address] [facility] Glomerular filtration rate ( GFR) estimation/1.73 sq m using serum, plasma, or whole bOrdered By: Santino Haas on 10-08-2024 GFR/1.73 sq M.predicted among non-blacks MDRD (S/P/Bld) [Vol rate/Area] 65 mL/min/{1.73_m2} >[address] [facility] Hematocrit Auto (Bld) [Volum e fraction]Ordered By: Santino Haas on 10-08-2024 Hematocrit (Bld) [Volume fraction] 35.4 % Low 37-[address] [facility] Hemoglobin measurementOrdere d By: Santino Haas on 10-08-2024 Hemoglobin (Bld) [Mass/Vol] 11.3 g/dL Low 12.0-15.[address] [facility] MCV (mean corpuscular volume ) determinationOrdered By: Santino Haas on 10-08-2024 MCV (RBC) [Entitic vol] 90.1 fL 81-99 [facility] Mean corpuscular hemoglobin (MCH) determinationOrdered By: Santino Haas on 10-08-2024 MCH (RBC) [Entitic mass] 28.8 pg 27.0-32.[address] [facility] Platelet countOrdered By: Charly Haas on 10-08-2024 Platelets (Bld) [#/Vol] 377 10*3/uL 150-[address] [facility] Potassium measurement (mass/ volume)Ordered By: Santino Haas on 10-08-2024 Potassium (Unsp spec) [Mass/Vol] 4.7 mmol/L 3.3-5.[address] [facility] RBC Auto (Bld) [#/Vol]Ordere d By: Santino Haas on 10-08-2024 RBC (Bld) [#/Vol] 3.93 10*6/uL Low 4.2-5.4 [facility] Serum creatinine measurement (mass/volume)Ordered By: Santino Haas on 10-08-2024 Creatinine [Mass/Vol] 0.86 mg/dL 0.70-1.20 [facility] Serum glucose measurement (m ass/volume)Ordered By: Santino Haas on 10-08-2024 Glucose [Mass/Vol] 120 mg/dL High 70-99 [facility] Serum or plasma calcium manuel urement (mass/volume)Ordered By: Santino Haas on 10-08-2024 Calcium [Mass/Vol] 8.3 mg/dL 7.6-11.0 [facility] Serum or plasma urea nitroge n measurement (mass/volume)Ordered By: Santino Haas on 10-08-2024 Urea nitrogen [Mass/Vol] 20 mg/dL High 4-[address] [facility] Sodium levelOrdered By: Ken Haas on 10-08-2024 Sodium [Moles/Vol] 132 mmol/L Low 133-145 [facility] White blood cell (WBC) count Ordered By: Santino Haas on 10-08-2024 WBC (Bld) [#/Vol] 8.0 10*3/uL 4.4-11.0 [facility] Basic Metabolic Profile (BMP )on 10-06-2024 BUN/CRE 24.0 RATIO High 10-[address] [facility] Comment on above: Performed By: #### L 500.2500 ####[facility] [address], [address] Calcium [Mass/Vol] 7.9 mg/dL Normal 7.6-11.0 [facility] Comment on above: Performed By: #### L 500.2500 ####[facility] [address] [place], [address] Chloride [Moles/Vol] 98 mmol/L Normal 98-108 [facility] Comment on above: Performed By: #### L 500.2500 ####[facility] [address], [address] CO2 [Moles/Vol] 24.8 mmol/L Normal 21.0-32.[address] [facility] Comment on above: Performed By: #### L 500.2500 ####[facility] [address], [address] Creatinine [Mass/Vol] 0.77 mg/dL Normal 0.70-1.20 [facility] Comment on above: Performed By: #### L 500.2500 ####[facility] [address], [address] ECRCL 43.29 ml/min Low 50-[address] [facility] Comment on above: Performed By: #### L 500.2500 ####[facility] [address], [address] GAP 11 Normal 5-[address] [facility] Comment on above: Performed By: #### L 500.2500 ####[facility] [address], [address] GFR/1.73 sq M.predicted among non-blacks MDRD (S/P/Bld) [Vol rate/Area] 74 mL/min/{1.73_m2} Normal >[address] [facility] Comment on above: Result Comment: mL/m in/1.73m2 CKD-EPI Creatinine Equation (2020) Performed By: #### L 500.2500 ####[facility] [address] [place], [address] Glucose [Mass/Vol] 98 mg/dL Normal 70-99 [facility] Comment on above: Performed By: #### L 500.2500 ####[facility] [address] [place], [address] Potassium [Moles/Vol] 3.9 mmol/L Normal 3.3-5.1 [facility] Comment on above: Performed By: #### L 500.2500 ####[facility] [address] [place], [address] Sodium [Moles/Vol] 134 mmol/L Normal 133-145 [facility] Comment on above: Performed By: #### L 500.2500 ####[facility] [address] [place], [address] Urea nitrogen [Mass/Vol] 18 mg/dL Normal 4-[address] [facility] Comment on above: Performed By: #### L 500.2500 ####[facility] [address] [place], [address] CBC-Complete Blood Cnt No Di ffon 10-06-2024 Erythrocyte distribution width (RBC) [Ratio] 13.3 % Normal 11.6-14.[address] [facility] Comment on above: Performed By: #### L 100.0500 ####[facility] [address] [place], [address] Hematocrit (Bld) [Volume fraction] 32.2 % Low 37-[address] [facility] Comment on above: Performed By: #### L 100.0500 ####[facility] [address] [place], [address] Hemoglobin (Bld) [Mass/Vol] 10.2 g/dL Low 12.0-15.[address] [facility] Comment on above: Performed By: #### L 100.0500 ####[facility] [address] [place], [address] MCH (RBC) [Entitic mass] 29.2 pg Normal 27.0-32.[address] [facility] Comment on above: Performed By: #### L 100.0500 ####[facility] [address] [place], [address] MCHC (RBC) [Mass/Vol] 31.7 g/dL Low 32-36 [facility] Comment on above: Performed By: #### L 100.0500 ####[facility] [address] [place], [address] MCV (RBC) [Entitic vol] 92.3 fL Normal 81-99 [facility] Comment on above: Performed By: #### L 100.0500 ####[facility] [address] [place], [address] Platelet mean volume (Bld) [Entitic vol] 9.5 fL Normal 6.2-12.[address] [facility] Comment on above: Performed By: #### L 100.0500 ####[facility] [address] [place], [address] Platelets (Bld) [#/Vol] 329 10*3/uL Normal 150-[address] [facility] Comment on above: Performed By: #### L 100.0500 ####[facility] [address] [place], [address] RBC (Bld) [#/Vol] 3.49 10*6/uL Low 4.2-5.4 [facility] Comment on above: Performed By: #### L 100.0500 ####[facility] [address] [place], [place], [id number] RDW SD 45.1 fl High 35.1-43.[address] [facility] Comment on above: Performed By: #### L 100.0500 ####[facility] [address] [place], [place], [phone] WBC (Bld) [#/Vol] 7.6 10*3/uL Normal 4.4-11.0 [facility] Comment on above: Performed By: #### L 100.0500 ####[facility] [address] [place], [place], [id number] Calculated very low density lipoprotein (VLDL) cholesterol measurementOrdered By: Jaiden Worthington on 10-05-2024 Calculated very low density lipoprotein (VLDL) cholesterol measurement 16 mg/dL 5-[address] [facility] LDL calc ser/plasOrdered By: Jaiden Worthington on 10-05-2024 Cholesterol in LDL [Mass/Vol] 49 mg/dL [facility] Lipid Profileon 10-05-2024 CHOL:HDL 1.[address] [facility] Comment on above: Performed By: #### L 500.4100 ####[facility] [address] [place], [place], [id number] Cholesterol [Mass/Vol] 173 mg/dL Normal <=200 [facility] Comment on above: Result Comment: Chol esterol level, Desirable <200 mg/dLBorderline high cholesterol 200-239 mg/dLHigh cholesterol >=240 mg/dLRecommendations of the NCEP Adult Treatment Panel for thefollowing risk-cutoff thresholds for the [place] [employer]. Performed By: #### L 500.4100 ####[facility] [address] [place], [place], [id number] Cholesterol in HDL [Mass/Vol] 108 mg/dL Normal [facility] Comment on above: Result Comment: Arely onal Cholesterol Education Program (NCEP) guidelines:<40 mg/dL: Low HDL-cholesterol (major risk factor for CHD)>= 60 mg/dL: High HDL-cholesterol (negative risk factor forCHD)HDL-cholesterol is affected by a number of factors, e.g.smoking, exercise, hormones, sex and age. Performed By: #### L 500.4100 ####[facility] [address], [address] Cholesterol in LDL [Mass/Vol] 49 mg/dL Normal [facility] Comment on above: Result Comment: Bord zwpcxo=989-947 mg/dL Higher Sgaz=229 mg/dL or greater Performed By: #### L 500.4100 ####[facility] [address], [address] Cholesterol in VLDL [Mass/Vol] 16 mg/dL Normal 5-[address] [facility] Comment on above: Performed By: #### L 500.4100 ####[facility] [address], [address] Triglyceride [Mass/Vol] 78 mg/dL Normal [facility] Comment on above: Result Comment: The drugs N-Acetylcysteine and Metamizole may falselydepress this assay.Normal range: <150 mg/dLBorderline High: 150-199 mg/dLHigh: 200-499 mg/dLVery High: >500 mg/dL Performed By: #### L 500.4100 ####[facility] [address], [address] MR/CON.PCM.NEon 10-05-2024 MR/CON.PCM.NE Normal [facility] Serum or plasma cholesterol in HDL measurement (mass/volume)Ordered By: Jaiden Worthington on 10-05-2024 Cholesterol in HDL [Mass/Vol] 108 mg/dL >[address] [facility] Serum or plasma cholesterol measurement (mass/volume)Ordered By: Jaiden Worthington on 10-05-2024 Cholesterol [Mass/Vol] 173 mg/dL <201 [facility] Urine Cultureon 10-05-2024 URC Organism is too fastidious for routine susceptibility studies. Urine Culture Urine Culture Aerococcus urinae [place] Count 80,000-100,[address] [facility] Comment on above: Performed By: #### M 100.2200 ####[facility] [address] [place], [place], [id number] Absolute lymphocyte countOrd ered By: Juan José Thorpe on 10-04-2024 Lymphocytes Auto (Unsp spec) [#/Vol] 1.42 10*3/uL 0.83-4.[address] [facility] Alcohol, Blood (Medical)-Ser umon 10-04-2024 SERUM ETOH < 10.1 Normal <=10.[address] [facility] Comment on above: Result Comment: This test is for medical purposes only. The legaldefinition of intoxication varies according to local law. Performed By: #### L 501.5200, L501.9100 ####[facility] [address] [place], [place], [id number] Automated lymphocyte count a s percentage of total leukocytesOrdered By: Juan José Thorpe on 10-04-2024 Lymphocytes/100 WBC Auto (Unsp spec) 14.8 % Low 19-[address] [facility] Basophil percentageOrdered B y: Juan José Thorpe on 10-04-2024 Basophils/100 WBC (Bld) 0.6 % Normal 0-1 [facility] Comment on above: Performed By: #### L 501.9520, L100.0100, L501.2300, L500.4050 ####[facility] [address] [place], [address] Bilirubin, totalOrdered By: Juan José Thorpe on 10-04-2024 Bilirubin [Mass/Vol] 0.41 mg/dL 0.00-1.30 [facility] Brain without Contraston Brain without Contrast Normal [facility] CBC W/Diff, Automatedon 09-10 Absolute Lymph 1.42 X10 3/uL Normal 0.83-4.[address] [facility] Comment on above: Performed By: #### L 501.9520, L100.0100, L501.2300, L500.4050 ####[facility] [address], [address] Absolute Neut 6.8 X10 3/uL Normal 2.0-7.[address] [facility] Comment on above: Performed By: #### L 501.9520, L100.0100, L501.2300, L500.4050 ####[facility] [address], [address] Erythrocyte distribution width (RBC) [Ratio] 13.3 % Normal 11.6-14.[address] [facility] Comment on above: Performed By: #### L 501.9520, L100.0100, L501.2300, L500.4050 ####[facility] [address], [address] Hematocrit (Bld) [Volume fraction] 34.0 % Low 37-[address] [facility] Comment on above: Performed By: #### L 501.9520, L100.0100, L501.2300, L500.4050 ####[facility] [address], [address] Hemoglobin (Bld) [Mass/Vol] 10.8 g/dL Low 12.0-15.[address] [facility] Comment on above: Performed By: #### L 501.9520, L100.0100, L501.2300, L500.4050 ####[facility] [address], [address] IG% 0.600 Normal 0.0-0.[address] [facility] Comment on above: Result Comment: IG% - Immature Granulocytes (promyelocytes, myelocytes andmetamyelocytes) > 1% indicates that a LEFT SHIFT is Present. Performed By: #### L 501.9520, L100.0100, L501.2300, L500.4050 ####[facility] [address], [address] Lymphocytes/100 WBC (Bld) 14.8 % Low 19-[address] [facility] Comment on above: Performed By: #### L 501.9520, L100.0100, L501.2300, L500.4050 ####[facility] [address], [address] MCH (RBC) [Entitic mass] 29.0 pg Normal 27.0-32.[address] [facility] Comment on above: Performed By: #### L 501.9520, L100.0100, L501.2300, L500.4050 ####[facility] [address], [address] MCHC (RBC) [Mass/Vol] 31.8 g/dL Low 32-36 [facility] Comment on above: Performed By: #### L 501.9520, L100.0100, L501.2300, L500.4050 ####[facility] [address], [address] MCV (RBC) [Entitic vol] 91.2 fL Normal 81-99 [facility] Comment on above: Performed By: #### L 501.9520, L100.0100, L501.2300, L500.4050 ####[facility] [address] [place], [address] Nucleated RBC (Bld) [#/Vol] 0 10*3/uL Normal 0-[address] [facility] Comment on above: Performed By: #### L 501.9520, L100.0100, L501.2300, L500.4050 ####[facility] [address], [address] Platelet mean volume (Bld) [Entitic vol] 9.3 fL Normal 6.2-12.[address] [facility] Comment on above: Performed By: #### L 501.9520, L100.0100, L501.2300, L500.4050 ####[facility] [address] [place], [address] Platelets (Bld) [#/Vol] 379 10*3/uL Normal 150-[address] [facility] Comment on above: Performed By: #### L 501.9520, L100.0100, L501.2300, L500.4050 ####[facility] [address], [address] RBC (Bld) [#/Vol] 3.73 10*6/uL Low 4.2-5.4 [facility] Comment on above: Performed By: #### L 501.9520, L100.0100, L501.2300, L500.4050 ####[facility] [address] [place], [address] RDW SD 44.9 fl High 35.1-43.[address] [facility] Comment on above: Performed By: #### L 501.9520, L100.0100, L501.2300, L500.4050 ####[facility] [address], [address] WBC (Bld) [#/Vol] 9.6 10*3/uL Normal 4.4-11.0 [facility] Comment on above: Performed By: #### L 501.9520, L100.0100, L501.2300, L500.4050 ####[facility] [address], [address] Comprehensive Metabolic [facility] 10-04-2024 Albumin [Mass/Vol] 3.8 g/dL Normal 3.4-4.8 [facility] Comment on above: Performed By: #### L 501.9520, L100.0100, L501.2300, L500.4050 ####[facility] [address] [place], [address] Albumin/Globulin [Mass ratio] 1.4 {ratio} Normal 0.9-2.[address] [facility] Comment on above: Performed By: #### L 501.9520, L100.0100, L501.2300, L500.4050 ####[facility] [address] [place], [address] ALK PHOS 88 U/L Normal 35-[address] [facility] Comment on above: Performed By: #### L 501.9520, L100.0100, L501.2300, L500.4050 ####[facility] [address] [place], [address] ALT [Catalytic activity/Vol] 12 U/L Normal <=[address] [facility] Comment on above: Performed By: #### L 501.9520, L100.0100, L501.2300, L500.4050 ####[facility] [address] [place], [address] AST [Catalytic activity/Vol] 28 U/L Normal <=[address] [facility] Comment on above: Performed By: #### L 501.9520, L100.0100, L501.2300, L500.4050 ####[facility] [address] [place], [address] Bilirubin [Mass/Vol] 0.41 mg/dL Normal 0.00-1.30 [facility] Comment on above: Performed By: #### L 501.9520, L100.0100, L501.2300, L500.4050 ####[facility] [address] [place], [address] BUN/CRE 31.8 RATIO High 10-[address] [facility] Comment on above: Performed By: #### L 501.9520, L100.0100, L501.2300, L500.4050 ####[facility] [address] [place], [address] Calcium [Mass/Vol] 8.3 mg/dL Normal 7.6-11.0 [facility] Comment on above: Performed By: #### L 501.9520, L100.0100, L501.2300, L500.4050 ####[facility] [address] [place], [address] Chloride [Moles/Vol] 97 mmol/L Low 98-108 [facility] Comment on above: Performed By: #### L 501.9520, L100.0100, L501.2300, L500.4050 ####[facility] [address] [place], [address] CO2 [Moles/Vol] 26.0 mmol/L Normal 21.0-32.[address] [facility] Comment on above: Performed By: #### L 501.9520, L100.0100, L501.2300, L500.4050 ####[facility] [address] [place], [address] Creatinine [Mass/Vol] 0.93 mg/dL Normal 0.70-1.20 [facility] Comment on above: Performed By: #### L 501.9520, L100.0100, L501.2300, L500.4050 ####[facility] [address] [place], [address] ECRCL 36.11 ml/min Low 50-[address] [facility] Comment on above: Performed By: #### L 501.9520, L100.0100, L501.2300, L500.4050 ####[facility] [address] [place], [address] GAP 13 Normal 5-[address] [facility] Comment on above: Performed By: #### L 501.9520, L100.0100, L501.2300, L500.4050 ####[facility] [address] [place], [address] GFR/1.73 sq M.predicted among non-blacks MDRD (S/P/Bld) [Vol rate/Area] 59 mL/min/{1.73_m2} Low >[address] [facility] Comment on above: Result Comment: mL/m in/1.73m2 CKD-EPI Creatinine Equation (2020) Performed By: #### L 501.9520, L100.0100, L501.2300, L500.4050 ####[facility] [address] [place], [address] Globulin (S) [Mass/Vol] 2.7 g/dL Normal 2.2-4.2 [facility] Comment on above: Performed By: #### L 501.9520, L100.0100, L501.2300, L500.4050 ####[facility] [address] [place], [address] Glucose [Mass/Vol] 141 mg/dL High 70-99 [facility] Comment on above: Performed By: #### L 501.9520, L100.0100, L501.2300, L500.4050 ####[facility] [address] [place], [address] Potassium [Moles/Vol] 3.6 mmol/L Normal 3.3-5.1 [facility] Comment on above: Performed By: #### L 501.9520, L100.0100, L501.2300, L500.4050 ####[facility] [address] [place], [address] Sodium [Moles/Vol] 136 mmol/L Normal 133-145 [facility] Comment on above: Performed By: #### L 501.9520, L100.0100, L501.2300, L500.4050 ####[facility] [address] [place], [address] T PROT 6.4 g/dL Normal 5.9-8.[address] [facility] Comment on above: Performed By: #### L 501.9520, L100.0100, L501.2300, L500.4050 ####[facility] [address], [address] Urea nitrogen [Mass/Vol] 30 mg/dL High 4-[address] [facility] Comment on above: Performed By: #### L 501.9520, L100.0100, L501.2300, L500.4050 ####[facility] [address], [address] Eosinophil percentageOrdered By: Juan José Thorpe on 10-04-2024 Eosinophils/100 WBC (Bld) 1.1 % Normal 0-[address] [facility] Comment on above: Performed By: #### L 501.9520, L100.0100, L501.2300, L500.4050 ####[facility] [address], [address] Immature granulocytes/100 WB C Auto (Bld)Ordered By: Juan José Thorpe on 10-04-2024 Immature granulocytes/100 WBC (Bld) 0.600 % 0.0-0.[address] [facility] Magnesiumon 10-04-2024 Magnesium [Mass/Vol] 3.4 mg/dL High 1.5-2.2 [facility] Comment on above: Performed By: #### L 501.5200, L501.9100 ####[facility] [address], [address] Magnetic resonance imaging r eportOrdered By: Wilner Meredith on 10-04-[address] [facility] Monocyte percentageOrdered B y: Juan José Thorpe on 10-04-2024 Monocytes/100 WBC (Bld) 11.6 % High 0-10 [facility] Comment on above: Performed By: #### L 501.9520, L100.0100, L501.2300, L500.4050 ####[facility] [address], [address] Neutrophil percentageOrdered By: Juan José Thorpe on 10-04-2024 Neutrophils/100 WBC (Bld) 71.3 % High 47-[address] [facility] Comment on above: Performed By: #### L 501.9520, L100.0100, L501.2300, L500.4050 ####[facility] [address], [address] No Panel InformationOrdered By: Juan José Thorpe on 10-04-2024 28 U/L <[address] [facility] Phosphoruson 10-04-2024 Phosphate [Mass/Vol] 2.5 mg/dL Low 2.7-4.5 [facility] Comment on above: Performed By: #### L 501.9520, L100.0100, L501.2300, L500.4050 ####[facility] [address] [place], [place], [address] Serum globulin measurementOr dered By: Juan José Thorpe on 10-04-2024 Globulin (S) [Mass/Vol] 2.7 g/dL 2.2-4.2 [facility] Serum or plasma alanine clifton otransferase (ALT) measurementOrdered By: Juan José Thorpe on 10-04-2024 ALT [Catalytic activity/Vol] 12 U/L <[address] [facility] Serum or plasma albumin manuel urement (mass/volume)Ordered By: Juan José Thorpe on 10-04-2024 Albumin [Mass/Vol] 3.8 g/dL 3.4-4.8 [facility] Serum or plasma albumin/glob ulin mass ratioOrdered By: Juan José Thorpe on 10-04-2024 Albumin/Globulin [Mass ratio] 1.4 {ratio} 0.9-2.[address] [facility] Serum or plasma alkaline bibi sphatase measurementOrdered By: Juan José Thorpe on 10-04-2024 ALP [Catalytic activity/Vol] 88 U/L 35-[address] [facility] TSH DL <= 0.005 mIU/L QnOrde red By: Juan José Thorpe on 10-04-2024 TSH Qn 0.373 uIU/mL 0.300-4.[address] [facility] Thyroid Stim Hormone (TSH)on 10-04-2024 TSH 0.373 uIU/mL Normal 0.300-4.[address] [facility] Comment on above: Performed By: #### L 501.9520, L100.0100, L501.2300, L500.4050 ####[facility] [address], [address] Total proteinOrdered By: Obed Thorpe on 10-04-2024 Protein [Mass/Vol] 6.4 g/dL 5.9-8.4 [facility] Urine Cultureon 10-04-2024 URC Organism is too fastidious for routine susceptibility studies. Aerococcus urinae [place] Count 80,000-100,[address] [facility] Comment on above: Performed By: #### M 100.2200 ####[facility] [address] [place], [place], [id number] 12 Lead EKGon 10-03-2024 12 Lead EKG Normal [facility] Absolute lymphocyte countOrd ered By: Diana Snow on 10-03-2024 Lymphocytes Auto (Unsp spec) [#/Vol] 0.99 10*3/uL 0.83-4.[address] [facility] Amphetamine detection with 1 000 ng/mL as cutoffOrdered By: Diana Snow on 10-03-2024 Amphetamines Screen method >1000 ng/mL Ql (U) Negative < 200 ng/mL [facility] Anion gap in Serum or Plasma Ordered By: Diana Snow on 10-03-2024 Anion gap [Moles/Vol] 11 mmol/L 5-15 [facility] Automated lymphocyte count a s percentage of total leukocytesOrdered By: Diana Snow on 10-03-2024 Lymphocytes/100 WBC Auto (Unsp spec) 9.6 % Low 19-[address] [facility] BUN/creatinine ratioOrdered By: Diana Snow on 10-03-2024 Urea nitrogen/Creatinine [Mass ratio] 33.3 mg/mg High 10- [facility] Basic Metabolic Profile (BMP )on 10-03-2024 BUN/CRE 33.3 RATIO High 02-[address] [facility] Comment on above: Performed By: #### L 500.2500, L100.0100 ####[facility] [address] [place], [address] Calcium [Mass/Vol] 8.4 mg/dL Normal 7.6-11.0 [facility] Comment on above: Performed By: #### L 500.2500, L100.0100 ####[facility] [address] [place], [address] Chloride [Moles/Vol] 96 mmol/L Low 98-108 [facility] Comment on above: Performed By: #### L 500.2500, L100.0100 ####[facility] [address] [place], [address] CO2 [Moles/Vol] 28.4 mmol/L Normal 21.0-32.[address] [facility] Comment on above: Performed By: #### L 500.2500, L100.0100 ####[facility] [address] [place], [address] Creatinine [Mass/Vol] 1.04 mg/dL Normal 0.70-1.20 [facility] Comment on above: Performed By: #### L 500.2500, L100.0100 ####[facility] [address] [place], [address] ECRCL 35.97 ml/min Low 50-[address] [facility] Comment on above: Performed By: #### L 500.2500, L100.0100 ####[facility] [address] [place], [address] GAP 11 Normal 5-[address] [facility] Comment on above: Performed By: #### L 500.2500, L100.0100 ####[facility] [address], [address] GFR/1.73 sq M.predicted among non-blacks MDRD (S/P/Bld) [Vol rate/Area] 52 mL/min/{1.73_m2} Low >[address] [facility] Comment on above: Result Comment: mL/m in/1.73m2 CKD-EPI Creatinine Equation (2020) Performed By: #### L 500.2500, L100.0100 ####[facility] [address], [address] Glucose [Mass/Vol] 121 mg/dL High 70-99 [facility] Comment on above: Performed By: #### L 500.2500, L100.0100 ####[facility] [address], [address] Potassium [Moles/Vol] 4.2 mmol/L Normal 3.3-5.1 [facility] Comment on above: Performed By: #### L 500.2500, L100.0100 ####[facility] [address], [address] Sodium [Moles/Vol] 134 mmol/L Normal 133-145 [facility] Comment on above: Performed By: #### L 500.2500, L100.0100 ####[facility] [address], [address] Urea nitrogen [Mass/Vol] 35 mg/dL High 4-[address] [facility] Comment on above: Performed By: #### L 500.2500, L100.0100 ####[facility] [address], [address] Basophil percentageOrdered B y: Diana Snow on 10-03-2024 Basophils/100 WBC (Bld) 0.3 % 0-1 [facility] Bilirubin Test strip Ql (U)O rdered By: Diana Snow on 10-03-2024 Bilirubin Ql (U) Negative Negative [facility] Brain/Head without Contrasto n 10-03-2024 Brain/Head without Contrast Normal [facility] CBC W/Diff, Automatedon 09-10 Absolute Lymph 0.99 X10 3/uL Normal 0.83-4.[address] [facility] Comment on above: Performed By: #### L 500.2500, L100.0100 ####[facility] [address] [place], [address] Absolute Neut 8.2 X10 3/uL High 2.0-7.[address] [facility] Comment on above: Performed By: #### L 500.2500, L100.0100 ####[facility] [address] [place], [address] Basophils/100 WBC (Bld) 0.3 % Normal 0-1 [facility] Comment on above: Performed By: #### L 500.2500, L100.0100 ####[facility] [address] [place], [address] Eosinophils/100 WBC (Bld) 0.1 % Normal 0-[address] [facility] Comment on above: Performed By: #### L 500.2500, L100.0100 ####[facility] [address] [place], [address] Erythrocyte distribution width (RBC) [Ratio] 13.3 % Normal 11.6-14.[address] [facility] Comment on above: Performed By: #### L 500.2500, L100.0100 ####[facility] [address], [address] Hematocrit (Bld) [Volume fraction] 32.2 % Low 37-[address] [facility] Comment on above: Performed By: #### L 500.2500, L100.0100 ####[facility] [address] [place], [address] Hemoglobin (Bld) [Mass/Vol] 10.4 g/dL Low 12.0-15.[address] [facility] Comment on above: Performed By: #### L 500.2500, L100.0100 ####[facility] [address] [place], [address] IG% 0.600 Normal 0.0-0.[address] [facility] Comment on above: Result Comment: IG% - Immature Granulocytes (promyelocytes, myelocytes andmetamyelocytes) > 1% indicates that a LEFT SHIFT is Present. Performed By: #### L 500.2500, L100.0100 ####[facility] [address] [place], [address] Lymphocytes/100 WBC (Bld) 9.6 % Low 19-[address] [facility] Comment on above: Performed By: #### L 500.2500, L100.0100 ####[facility] [address] [place], [address] MCH (RBC) [Entitic mass] 29.4 pg Normal 27.0-32.[address] [facility] Comment on above: Performed By: #### L 500.2500, L100.0100 ####[facility] [address] [place], [address] MCHC (RBC) [Mass/Vol] 32.3 g/dL Normal 32-36 [facility] Comment on above: Performed By: #### L 500.2500, L100.0100 ####[facility] [address] [place], [address] MCV (RBC) [Entitic vol] 91.0 fL Normal 81-99 [facility] Comment on above: Performed By: #### L 500.2500, L100.0100 ####[facility] [address], [address] Monocytes/100 WBC (Bld) 9.8 % Normal 0-10 [facility] Comment on above: Performed By: #### L 500.2500, L100.0100 ####[facility] [address] [place], [address] Neutrophils/100 WBC (Bld) 79.6 % High 47-[address] [facility] Comment on above: Performed By: #### L 500.2500, L100.0100 ####[facility] [address] [place], [address] Nucleated RBC (Bld) [#/Vol] 0 10*3/uL Normal 0-[address] [facility] Comment on above: Performed By: #### L 500.2500, L100.0100 ####[facility] [address], [address] Platelet mean volume (Bld) [Entitic vol] 9.2 fL Normal 6.2-12.[address] [facility] Comment on above: Performed By: #### L 500.2500, L100.0100 ####[facility] [address], [address] Platelets (Bld) [#/Vol] 368 10*3/uL Normal 150-[address] [facility] Comment on above: Performed By: #### L 500.2500, L100.0100 ####[facility] [address] [place], [address] RBC (Bld) [#/Vol] 3.54 10*6/uL Low 4.2-5.4 [facility] Comment on above: Performed By: #### L 500.2500, L100.0100 ####[facility] [address] [place], [address] RDW SD 44.4 fl High 35.1-43.[address] [facility] Comment on above: Performed By: #### L 500.2500, L100.0100 ####[facility] [address] [place], [place], [address] WBC (Bld) [#/Vol] 10.3 10*3/uL Normal 4.4-11.0 [facility] Comment on above: Performed By: #### L 500.2500, L100.0100 ####[facility] [address] [facility] [place], [place], [id number] Carbon dioxide, total [Moles /volume] in Central venous bloodOrdered By: Diana Snow on 10-03-2024 CO2 [Moles/Vol] 28.4 mmol/L 21.0-32.[address] [facility] Chest without Contraston Chest without Contrast Normal [facility] Chloride assayOrdered By: Neto Snow on 10-03-2024 Chloride [Moles/Vol] 96 mmol/L Low 98-108 [facility] Emergency Department Summary on 10-03-2024 Emergency Department Summary Normal [facility] Eosinophil percentageOrdered By: Diana Snow on 10-03-2024 Eosinophils/100 WBC (Bld) 0.1 % 0-[address] [facility] Erythrocyte distribution wid th ratioOrdered By: Diana Snow on 10-03-2024 Erythrocyte distribution width (RBC) [Ratio] 13.3 % 11.6-14.[address] [facility] Erythrocyte distribution wid th standard deviationOrdered By: Diana Snow on 10-03-2024 Erythrocyte distribution width (RBC) [Ratio] 44.4 fl High 35.1-43.[address] [facility] Glomerular filtration rate ( GFR) estimation/1.73 sq m using serum, plasma, or whole bOrdered By: Diana Snow on 10-03-2024 GFR/1.73 sq M.predicted among non-blacks MDRD (S/P/Bld) [Vol rate/Area] 52 mL/min/{1.73_m2} Low >[address] [facility] H AND P Exam - Hospitaliston 10-03-2024 H&P Exam - Hospitalist Normal [facility] HIP, UNI W/ Pelvis 2-3 Views on 10-03-2024 HIP, UNI W/ Pelvis 2-3 Views Normal [facility] Hematocrit Auto (Bld) [Volum e fraction]Ordered By: Diana Snow on 10-03-2024 Hematocrit (Bld) [Volume fraction] 32.2 % Low 37-[address] [facility] Hemoglobin measurementOrdere d By: Diana Snow on 10-03-2024 Hemoglobin (Bld) [Mass/Vol] 10.4 g/dL Low 12.0-15.[address] [facility] Immature granulocytes/100 WB C Auto (Bld)Ordered By: Diana Snow on 10-03-2024 Immature granulocytes/100 WBC (Bld) 0.600 % 0.0-0.[address] [facility] Ketones Test strip Ql (U)Ord ered By: Diana Snow on 10-03-2024 Ketones Ql (U) Negative Negative [facility] MCV (mean corpuscular volume ) determinationOrdered By: Diana Snow on 10-03-2024 MCV (RBC) [Entitic vol] 91.0 fL 81-99 [facility] Magnesium measurement (mass/ volume)Ordered By: Juan José Thorpe on 10-03-2024 Magnesium (Unsp spec) [Mass/Vol] 3.4 mg/dL High 1.5-2.[address] [facility] Mean corpuscular hemoglobin (MCH) determinationOrdered By: Diana Snow on 10-03-2024 MCH (RBC) [Entitic mass] 29.4 pg 27.0-32.[address] [facility] Monocyte percentageOrdered B y: Diana Snow on 10-03-2024 Monocytes/100 WBC (Bld) 9.8 % 0-10 [facility] Mucus LM Ql (Urine sed)Order ed By: Diana Snow on 10-03-2024 Mucus Ql (Urine sed) 0 SEEN /hpf [facility] Neutrophil percentageOrdered By: Diana Snow on 10-03-2024 Neutrophils/100 WBC (Bld) 79.6 % High 47-[address] [facility] Nitrite Test strip Ql (U)Ord ered By: Diana Snow on 10-03-2024 Nitrite Ql (U) Negative Negative [facility] No Panel InformationOrdered By: Diana Snow on 10-03-2024 Negative < 200 ng/mL [facility] Platelet countOrdered By: Neto Snow on 10-03-2024 Platelets (Bld) [#/Vol] 368 10*3/uL 150-[address] [facility] Potassium measurement (mass/ volume)Ordered By: Diana Snow on 10-03-2024 Potassium (Unsp spec) [Mass/Vol] 4.2 mmol/L 3.3-5.[address] [facility] Protein Test strip Ql (U)Ord ered By: Diana Snow on 10-03-2024 Protein Ql (U) 30 mg/dl High Negative [facility] RBC Auto (Bld) [#/Vol]Ordere d By: Diana Snow on 10-03-2024 RBC (Bld) [#/Vol] 3.54 10*6/uL Low 4.2-5.4 [facility] Screening urine fentanyl fran surementOrdered By: Diana Snow on 10-03-2024 fentaNYL Screen Ql (U) Negative [facility] Serum creatinine measurement (mass/volume)Ordered By: Diana Snow on 10-03-2024 Creatinine [Mass/Vol] 1.04 mg/dL 0.70-1.20 [facility] Serum glucose measurement (m ass/volume)Ordered By: Diana Snow on 10-03-2024 Glucose [Mass/Vol] 121 mg/dL High 70-99 [facility] Serum or plasma calcium manuel urement (mass/volume)Ordered By: Diana Snow on 10-03-2024 Calcium [Mass/Vol] 8.4 mg/dL 7.6-11.0 [facility] Serum or plasma ethanol manuel urement (mass/volume)Ordered By: Juan José Thorpe on 10-03-2024 Ethanol [Mass/Vol] mg/dL <10.1 [facility] Serum or plasma urea nitroge n measurement (mass/volume)Ordered By: Diana Snow on 10-03-2024 Urea nitrogen [Mass/Vol] 35 mg/dL High 4-[address] [facility] Sodium levelOrdered By: Roly Snow on 10-03-2024 Sodium [Moles/Vol] 134 mmol/L 133-145 [facility] Spine Cervical without Contr ason 10-03-2024 Spine Cervical without Contras Normal [facility] Squamous epithelial cells de tection in urine sediment by light microscopyOrdered By: Diana Snow on 10-03-2024 Epithelial cells.squamous LM Ql (Urine sed) 0 SEEN /hpf 5-[address] [facility] Urinalysis, Completeon 10-03 BACTERIA 2+ /hpf Normal None Seen [facility] Comment on above: Order Comment: CLEAN CATCH Performed By: #### L 400.0001 ####[facility] [address], [address] RBC 0-5 SEEN Normal 0-[address] [facility] Comment on above: Order Comment: CLEAN CATCH Performed By: #### L 400.0001 ####[facility] [address] [place], [address] WBC 0-5 SEEN Normal 0-[address] [facility] Comment on above: Order Comment: CLEAN CATCH Performed By: #### L 400.0001 ####[facility] [address] [place], [address] EPI,SQUAMOUS 0 SEEN Normal 5-[address] [facility] Comment on above: Order Comment: CLEAN CATCH Performed By: #### L 400.0001 ####[facility] [address] [place], [address] Mucus Ql (Urine sed) 0 SEEN Normal [facility] Comment on above: Order Comment: CLEAN CATCH Performed By: #### L 400.0001 ####[facility] [address] [place], [address] Urine Drug Screen (VISTA)on 10-03-2024 AMPHETAMINES Negative Normal <1000 ng/mL [facility] Comment on above: Performed By: #### L 505.5000 ####[facility] [address], [address] BARBITIURATES Negative Normal < 200 ng/mL [facility] Comment on above: Performed By: #### L 505.5000 ####[facility] [address] [facility] [address] BENZODIAZIPINE Negative Normal < 200 ng/mL [facility] Comment on above: Performed By: #### L 505.5000 ####[facility] [address] [facility] [address] BUP Ur Drug Scr Negative Normal < 200 ng/mL [facility] Comment on above: Performed By: #### L 505.5000 ####[facility] [address] [facility] [address] COCAINE Negative Normal < 300 ng/mL [facility] Comment on above: Performed By: #### L 505.5000 ####[facility] [address] [facility] [address] Fentanyl Negative Normal [facility] Comment on above: Performed By: #### L 505.5000 ####[facility] [address] [place] [id number] METHADONE Negative Normal < 300 ng/mL [facility] Comment on above: Performed By: #### L 505.5000 ####[facility] [address] [place] [id number] OPIATES Positive Normal < 300 ng/mL [facility] Comment on above: Result Comment: If c onfirmation testing is needed, a separate order will berequired to send out testing to the reference laboratory. Performed By: #### L 505.5000 ####[facility] [address] [facility] [address] OXYCODONE Negative Normal < 100 ng/mL [facility] Comment on above: Performed By: #### L 505.5000 ####[facility] [address] [facility] [address] PCP Negative Normal < 25 ng/mL [facility] Comment on above: Performed By: #### L 505.5000 ####[facility] [address] [place], [place], [id number] THC Negative Normal < 50 ng/mL [facility] Comment on above: Performed By: #### L 505.5000 ####[facility] [address] [place], [address] Urine clarityOrdered By: Jocelynn Snow on 10-03-2024 Clarity (U) Clear Clear [facility] Urine color determinationOrd ered By: Diana Snow on 10-03-2024 Color (U) Straw Yellow [facility] Urine cultureOrdered By: Jocelynn Snow on 10-03-2024 Bacteria identified Cx Nom (U) Aerococcus urinae Abnormal [facility] Urine glucose detectionOrder ed By: Diana Snow on 10-03-2024 Glucose Ql (U) Normal mg/dl Normal [facility] Urine leukocyte esterase det ection by dipstickOrdered By: Diana Snow on 10-03-2024 Leukocyte esterase Test strip Ql (U) Negative Negative [facility] Urine pHOrdered By: Diana ann on 10-03-2024 pH (U) 6.5 [pH] 5.0 - 8.[address] [facility] Urine phencyclidine (PCP) de tectionOrdered By: Diana Snow on 10-03-2024 Phencyclidine Ql (U) Negative < 25 ng/mL [facility] Urine sediment bacteria coun t by microscopy (number/high power field)Ordered By: Diana Snow on 10-03-2024 Bacteria LM.HPF (Urine sed) [#/Area] 2 /[HPF] None Seen [facility] Urine specific gravity measu rementOrdered By: Diana Snow on 10-03-2024 Specific gravity (U) [Rel density] 1.010 1.002-1.[address] [facility] Urine urobilinogen measureme ntOrdered By: Diana Snow on 10-03-2024 Urobilinogen Ql (U) Normal mg/dl Normal [facility] White blood cell (WBC) count Ordered By: Diana Snow on 10-03-2024 WBC (Bld) [#/Vol] 10.3 10*3/uL 4.4-11.0 [facility] White blood cell countOrdere d By: Dianaallison Snow on 10-03-2024 White blood cell count 0-5 SEEN /hpf 0-[address] [facility] 12 Lead EKGon 10-01-2024 12 Lead EKG Normal [facility] Absolute lymphocyte countOrd ered By: Ayaz Hinton on 10-01-2024 Lymphocytes Auto (Unsp spec) [#/Vol] 1.04 10*3/uL 0.83-4.[address] [facility] Amorphous sediment detection in urine sediment by light microscopyOrdered By: Ayaz Hinton on 10-01-2024 Amorphous sediment LM Ql (Urine sed) 2+ [facility] Anion gap in Serum or Plasma Ordered By: Ayaz Hinton on 10-01-2024 Anion gap [Moles/Vol] 12 mmol/L 5-15 [facility] Automated lymphocyte count a s percentage of total leukocytesOrdered By: Ayaz Hinton on 10-01-2024 Lymphocytes/100 WBC Auto (Unsp spec) 10.9 % Low 19-[address] [facility] BUN/creatinine ratioOrdered By: Aayz Hinton on 10-01-2024 Urea nitrogen/Creatinine [Mass ratio] 28.7 mg/mg High 10-[address] [facility] Basic Metabolic Profile (BMP )on 10-01-2024 BUN/CRE 28.7 RATIO High 10- [facility] Comment on above: Performed By: #### L 100.0100, L500.3400, L500.2500 ####[facility] [address], [address] Calcium [Mass/Vol] 9.0 mg/dL Normal 7.6-11.0 [facility] Comment on above: Performed By: #### L 100.0100, L500.3400, L500.2500 ####[facility] [address], [address] Chloride [Moles/Vol] 92 mmol/L Low 98-108 [facility] Comment on above: Performed By: #### L 100.0100, L500.3400, L500.2500 ####[facility] [address], [address] CO2 [Moles/Vol] 28.3 mmol/L Normal 21.0-32.[address] [facility] Comment on above: Performed By: #### L 100.0100, L500.3400, L500.2500 ####[facility] [address], [address] Creatinine [Mass/Vol] 1.17 mg/dL Normal 0.70-1.20 [facility] Comment on above: Performed By: #### L 100.0100, L500.3400, L500.2500 ####[facility] [address], [address] ECRCL 32.33 ml/min Low 50-[address] [facility] Comment on above: Performed By: #### L 100.0100, L500.3400, L500.2500 ####[facility] [address] [place], [address] GAP 12 Normal 5-[address] [facility] Comment on above: Performed By: #### L 100.0100, L500.3400, L500.2500 ####[facility] [address] [place], [address] GFR/1.73 sq M.predicted among non-blacks MDRD (S/P/Bld) [Vol rate/Area] 45 mL/min/{1.73_m2} Low >[address] [facility] Comment on above: Result Comment: mL/m in/1.73m2 CKD-EPI Creatinine Equation (2020) Performed By: #### L 100.0100, L500.3400, L500.2500 ####[facility] [address], [address] Glucose [Mass/Vol] 116 mg/dL High 70-99 [facility] Comment on above: Performed By: #### L 100.0100, L500.3400, L500.2500 ####[facility] [address], [address] Potassium [Moles/Vol] 4.3 mmol/L Normal 3.3-5.1 [facility] Comment on above: Performed By: #### L 100.0100, L500.3400, L500.2500 ####[facility] [address], [address] Sodium [Moles/Vol] 133 mmol/L Normal 133-145 [facility] Comment on above: Performed By: #### L 100.0100, L500.3400, L500.2500 ####[facility] [address] [place], [address] Urea nitrogen [Mass/Vol] 34 mg/dL High 4-[address] [facility] Comment on above: Performed By: #### L 100.0100, L500.3400, L500.2500 ####[facility] [address], [address] Basophil percentageOrdered B y: Ayaz Hinton on 10-01-2024 Basophils/100 WBC (Bld) 0.6 % 0-1 [facility] Bilirubin Test strip Ql (U)O rdered By: Ayaz Hinton on 10-01-2024 Bilirubin Ql (U) Negative Negative [facility] Bilirubin directOrdered By: Ayaz Hinton on 10-01-2024 Bilirubin.direct [Mass/Vol] 0.23 mg/dL 0.00-0.[address] [facility] Bilirubin, totalOrdered By: Ayaz Hinton on 10-01-2024 Bilirubin [Mass/Vol] 0.42 mg/dL 0.00-1.30 [facility] CBC W/Diff, Automatedon 09-10 Absolute Lymph 1.04 X10 3/uL Normal 0.83-4.[address] [facility] Comment on above: Performed By: #### L 100.0100, L500.3400, L500.2500 ####[facility] [address], [address] Absolute Neut 7.6 X10 3/uL Normal 2.0-7.[address] [facility] Comment on above: Performed By: #### L 100.0100, L500.3400, L500.2500 ####[facility] [address] [place], [address] Basophils/100 WBC (Bld) 0.6 % Normal 0-1 [facility] Comment on above: Performed By: #### L 100.0100, L500.3400, L500.2500 ####[facility] [address], [address] Eosinophils/100 WBC (Bld) 1.9 % Normal 0-[address] [facility] Comment on above: Performed By: #### L 100.0100, L500.3400, L500.2500 ####[facility] [address] [place], [address] Erythrocyte distribution width (RBC) [Ratio] 13.3 % Normal 11.6-14.[address] [facility] Comment on above: Performed By: #### L 100.0100, L500.3400, L500.2500 ####[facility] [address], [address] Hematocrit (Bld) [Volume fraction] 36.1 % Low 37-[address] [facility] Comment on above: Performed By: #### L 100.0100, L500.3400, L500.2500 ####[facility] [address] [place], [address] Hemoglobin (Bld) [Mass/Vol] 11.3 g/dL Low 12.0-15.[address] [facility] Comment on above: Performed By: #### L 100.0100, L500.3400, L500.2500 ####[facility] [address], [address] IG% 0.800 Normal 0.0-0.[address] [facility] Comment on above: Result Comment: IG% - Immature Granulocytes (promyelocytes, myelocytes andmetamyelocytes) > 1% indicates that a LEFT SHIFT is Present. Performed By: #### L 100.0100, L500.3400, L500.2500 ####[facility] [address] [place], [address] Lymphocytes/100 WBC (Bld) 10.9 % Low 19-[address] [facility] Comment on above: Performed By: #### L 100.0100, L500.3400, L500.2500 ####[facility] [address], [address] MCH (RBC) [Entitic mass] 28.5 pg Normal 27.0-32.[address] [facility] Comment on above: Performed By: #### L 100.0100, L500.3400, L500.2500 ####[facility] [address] [place], [address] MCHC (RBC) [Mass/Vol] 31.3 g/dL Low 32-36 [facility] Comment on above: Performed By: #### L 100.0100, L500.3400, L500.2500 ####[facility] [address] [place], [address] MCV (RBC) [Entitic vol] 91.2 fL Normal 81-99 [facility] Comment on above: Performed By: #### L 100.0100, L500.3400, L500.2500 ####[facility] [address] [place] [place], [address] Monocytes/100 WBC (Bld) 6.0 % Normal 0-10 [facility] Comment on above: Performed By: #### L 100.0100, L500.3400, L500.2500 ####[facility] [address] [place], [address] Neutrophils/100 WBC (Bld) 79.8 % High 47-[address] [facility] Comment on above: Performed By: #### L 100.0100, L500.3400, L500.2500 ####[facility] [address] [place], [address] Nucleated RBC (Bld) [#/Vol] 0 10*3/uL Normal 0-[address] [facility] Comment on above: Performed By: #### L 100.0100, L500.3400, L500.2500 ####[facility] [address] [place], [address] Platelet mean volume (Bld) [Entitic vol] 9.1 fL Normal 6.2-12.[address] [facility] Comment on above: Performed By: #### L 100.0100, L500.3400, L500.2500 ####[facility] [address] [place], [address] Platelets (Bld) [#/Vol] 374 10*3/uL Normal 150-[address] [facility] Comment on above: Performed By: #### L 100.0100, L500.3400, L500.2500 ####[facility] [address] [place], [address] RBC (Bld) [#/Vol] 3.96 10*6/uL Low 4.2-5.4 [facility] Comment on above: Performed By: #### L 100.0100, L500.3400, L500.2500 ####[facility] [address], [address] RDW SD 44.9 fl High 35.1-43.[address] [facility] Comment on above: Performed By: #### L 100.0100, L500.3400, L500.2500 ####[facility] [address] [place], [address] WBC (Bld) [#/Vol] 9.5 10*3/uL Normal 4.4-11.0 [facility] Comment on above: Performed By: #### L 100.0100, L500.3400, L500.2500 ####[facility] [address] [place], [address] Carbon dioxide, total [Moles /volume] in Central venous bloodOrdered By: Ayaz Hinton on 10-01-2024 CO2 [Moles/Vol] 28.3 mmol/L 21.0-32.[address] [facility] Chest 1 View (Portable)on Chest 1 View (Portable) Normal [facility] Chloride assayOrdered By: Freddie Hinton on 10-01-2024 Chloride [Moles/Vol] 92 mmol/L Low 98-108 [facility] Emergency Department Summary on 10-01-2024 Emergency Department Summary Normal [facility] Eosinophil percentageOrdered By: Ayaz Hinton on 10-01-2024 Eosinophils/100 WBC (Bld) 1.9 % 0-[address] [facility] Erythrocyte distribution wid th ratioOrdered By: Ayaz Hinton on 10-01-2024 Erythrocyte distribution width (RBC) [Ratio] 13.3 % 11.6-14.[address] [facility] Erythrocyte distribution wid th standard deviationOrdered By: Ayaz Hinton on 10-01-2024 Erythrocyte distribution width (RBC) [Ratio] 44.9 fl High 35.1-43.[address] [facility] Glomerular filtration rate ( GFR) estimation/1.73 sq m using serum, plasma, or whole bOrdered By: Ayaz Hinton on 10-01-2024 GFR/1.73 sq M.predicted among non-blacks MDRD (S/P/Bld) [Vol rate/Area] 45 mL/min/{1.73_m2} Low >[address] [facility] Hematocrit Auto (Bld) [Volum e fraction]Ordered By: Ayaz Hinton on 10-01-2024 Hematocrit (Bld) [Volume fraction] 36.1 % Low 37-[address] [facility] Hemoglobin measurementOrdere d By: Ayaz Hinton on 10-01-2024 Hemoglobin (Bld) [Mass/Vol] 11.3 g/dL Low 12.0-15.[address] [facility] Immature granulocytes/100 WB C Auto (Bld)Ordered By: Ayaz Hinton on 10-01-2024 Immature granulocytes/100 WBC (Bld) 0.800 % 0.0-0.[address] [facility] Ketones Test strip Ql (U)Ord ered By: Ayaz Hinton on 10-01-2024 Ketones Ql (U) Negative Negative [facility] Liver Profileon 10-01-2024 Albumin [Mass/Vol] 4.1 g/dL Normal 3.4-4.8 [facility] Comment on above: Performed By: #### L 100.0100, L500.3400, L500.2500 ####[facility] [address], [address] ALK PHOS 96 U/L Normal 35-[address] [facility] Comment on above: Performed By: #### L 100.0100, L500.3400, L500.2500 ####[facility] [address] [place], [address] ALT [Catalytic activity/Vol] 9 U/L Normal <=[address] [facility] Comment on above: Performed By: #### L 100.0100, L500.3400, L500.2500 ####[facility] [address] [place], [address] AST [Catalytic activity/Vol] 23 U/L Normal <=[address] [facility] Comment on above: Performed By: #### L 100.0100, L500.3400, L500.2500 ####[facility] [address] [place], [address] Bilirubin [Mass/Vol] 0.42 mg/dL Normal 0.00-1.30 [facility] Comment on above: Performed By: #### L 100.0100, L500.3400, L500.2500 ####[facility] [address], [address] Bilirubin.direct [Mass/Vol] 0.23 mg/dL Normal 0.00-0.[address] [facility] Comment on above: Performed By: #### L 100.0100, L500.3400, L500.2500 ####[facility] [address] [place], [address] Globulin (S) [Mass/Vol] 3.0 g/dL Normal 2.2-4.2 [facility] Comment on above: Performed By: #### L 100.0100, L500.3400, L500.2500 ####[facility] [address] [place], [address] T PROT 7.1 g/dL Normal 5.9-8.[address] [facility] Comment on above: Performed By: #### L 100.0100, L500.3400, L500.2500 ####[facility] [address] [place], [address] MCV (mean corpuscular volume ) determinationOrdered By: Ayaz Hinton on 10-01-2024 MCV (RBC) [Entitic vol] 91.2 fL 81-99 [facility] Mean corpuscular hemoglobin (MCH) determinationOrdered By: Ayaz Hinton on 10-01-2024 MCH (RBC) [Entitic mass] 28.5 pg 27.0-32.[address] [facility] Monocyte percentageOrdered B y: Ayaz Hinton on 10-01-2024 Monocytes/100 WBC (Bld) 6.0 % 0-10 [facility] Mucus LM Ql (Urine sed)Order ed By: Ayaz Hinton on 10-01-2024 Mucus Ql (Urine sed) 0 SEEN /hpf [facility] Neutrophil percentageOrdered By: Ayaz Hinton on 10-01-2024 Neutrophils/100 WBC (Bld) 79.8 % High 47-[address] [facility] Nitrite Test strip Ql (U)Ord ered By: Ayaz Hinton on 10-01-2024 Nitrite Ql (U) Negative Negative [facility] No Panel InformationOrdered By: Ayaz Hinton on 10-01-2024 23 U/L <[address] [facility] Platelet countOrdered By: Freddie Hinton on 10-01-2024 Platelets (Bld) [#/Vol] 374 10*3/uL 150-[address] [facility] Potassium measurement (mass/ volume)Ordered By: Ayaz Hinton on 10-01-2024 Potassium (Unsp spec) [Mass/Vol] 4.3 mmol/L 3.3-5.[address] [facility] Protein Test strip Ql (U)Ord ered By: Ayaz Hinton on 10-01-2024 Protein Ql (U) 100 mg/dl High Negative [facility] RBC Auto (Bld) [#/Vol]Ordere d By: Ayaz Hinton on 10-01-2024 RBC (Bld) [#/Vol] 3.96 10*6/uL Low 4.2-5.4 [facility] Serum creatinine measurement (mass/volume)Ordered By: Ayaz Hinton on 10-01-2024 Creatinine [Mass/Vol] 1.17 mg/dL 0.70-1.20 [facility] Serum globulin measurementOr dered By: Ayaz Hinton on 10-01-2024 Globulin (S) [Mass/Vol] 3.0 g/dL 2.2-4.2 [facility] Serum glucose measurement (m ass/volume)Ordered By: Ayaz Hinton on 10-01-2024 Glucose [Mass/Vol] 116 mg/dL High 70-99 [facility] Serum or plasma alanine clifton otransferase (ALT) measurementOrdered By: Ayaz Hinton on 10-01-2024 ALT [Catalytic activity/Vol] 9 U/L <[address] [facility] Serum or plasma albumin manuel urement (mass/volume)Ordered By: Ayaz Hinton on 10-01-2024 Albumin [Mass/Vol] 4.1 g/dL 3.4-4.8 [facility] Serum or plasma alkaline bibi sphatase measurementOrdered By: Ayaz Hinton on 10-01-2024 ALP [Catalytic activity/Vol] 96 U/L 35-[address] [facility] Serum or plasma calcium manuel urement (mass/volume)Ordered By: Ayaz Hinton on 10-01-2024 Calcium [Mass/Vol] 9.0 mg/dL 7.6-11.0 [facility] Serum or plasma urea nitroge n measurement (mass/volume)Ordered By: Ayaz Hinton on 10-01-2024 Urea nitrogen [Mass/Vol] 34 mg/dL High 4-[address] [facility] Sodium levelOrdered By: Marquise Hinton on 10-01-2024 Sodium [Moles/Vol] 133 mmol/L 133-145 [facility] Squamous epithelial cells de tection in urine sediment by light microscopyOrdered By: Ayaz Hinton on 10-01-2024 Epithelial cells.squamous LM Ql (Urine sed) 0 SEEN /hpf 5-[address] [facility] Total proteinOrdered By: Kota Hinton on 10-01-2024 Protein [Mass/Vol] 7.1 g/dL 5.9-8.4 [facility] Urinalysis, Completeon 10-01 AMORPHOUS 2+ Normal [facility] Comment on above: Order Comment: MARV CTOR TO SPECIFY Performed By: #### L 400.0001 ####[facility] [address] [place], [place], [id number] BACTERIA 1+ /hpf Normal None Seen [facility] Comment on above: Order Comment: MARV CTOR TO SPECIFY Performed By: #### L 400.0001 ####[facility] [address] [place], [place], [id number] RBC 0-5 SEEN Normal 0-[address] [facility] Comment on above: Order Comment: MARV CTOR TO SPECIFY Performed By: #### L 400.0001 ####[facility] [address] [place], [place], [id number] WBC 10-25 SEEN Normal 0-[address] [facility] Comment on above: Order Comment: MARV CTOR TO SPECIFY Performed By: #### L 400.0001 ####[facility] [address] [place], [place], [id number] EPI,SQUAMOUS 0 SEEN Normal 5-[address] [facility] Comment on above: Order Comment: MARV CTOR TO SPECIFY Performed By: #### L 400.0001 ####[facility] [address] [place], [place], [address] Mucus Ql (Urine sed) 0 SEEN Normal [facility] Comment on above: Order Comment: MARV CTOR TO SPECIFY Performed By: #### L 400.0001 ####[facility] [address] [place], [place], [id number] Urine clarityOrdered By: Kota Hinton on 10-01-2024 Clarity (U) Cloudy Clear [facility] Urine color determinationOrd ered By: Ayaz Hinton on 10-01-2024 Color (U) Yellow Yellow [facility] Urine cultureOrdered By: Kota Hinton on 10-01-2024 Bacteria identified Cx Nom (U) Aerococcus urinae Abnormal [facility] Urine glucose detectionOrder ed By: Ayaz Hinton on 10-01-2024 Glucose Ql (U) Normal mg/dl Normal [facility] Urine leukocyte esterase det ection by dipstickOrdered By: Ayaz Hinton on 10-01-2024 Leukocyte esterase Test strip Ql (U) 100 /ul High Negative [facility] Urine pHOrdered By: Ayaz amaro on 10-01-2024 pH (U) 6.0 [pH] 5.0 - 8.[address] [facility] Urine sediment bacteria coun t by microscopy (number/high power field)Ordered By: Ayaz Hinton on 10-01-2024 Bacteria LM.HPF (Urine sed) [#/Area] 1 /[HPF] None Seen [facility] Urine specific gravity measu rementOrdered By: Ayaz Hinton on 10-01-2024 Specific gravity (U) [Rel density] 1.010 1.002-1.[address] [facility] Urine urobilinogen measureme ntOrdered By: Ayaz Hinton on 10-01-2024 Urobilinogen Ql (U) Normal mg/dl Normal [facility] White blood cell (WBC) count Ordered By: Ayaz Hinton on 10-01-2024 WBC (Bld) [#/Vol] 9.5 10*3/uL 4.4-11.0 [facility] White blood cell countOrdere d By: Ayaz Hinton on 10-01-2024 White blood cell count 10-25 SEEN /hpf 0-[address] [facility] Absolute lymphocyte countOrd ered By: Zackary Lyon on 09-06-2024 Lymphocytes Auto (Unsp spec) [#/Vol] 1.76 10*3/uL 0.83-4.[address] [facility] Anion gap in Serum or Plasma Ordered By: Zackary Lyon on 09-06-2024 Anion gap [Moles/Vol] 11 mmol/L 5-15 [facility] Automated lymphocyte count a s percentage of total leukocytesOrdered By: Zackary Lyon on 09-06-2024 Lymphocytes/100 WBC Auto (Unsp spec) 26.3 % 19-[address] [facility] BUN/creatinine ratioOrdered By: Zackary Lyon on 09-06-2024 Urea nitrogen/Creatinine [Mass ratio] 40.3 mg/mg High 10-[address] [facility] Basophil percentageOrdered B y: Zackary Lyon on 09-06-2024 Basophils/100 WBC (Bld) 1.0 % 0-1 [facility] Bilirubin, totalOrdered By: Zackary Lyon on 09-06-2024 Bilirubin [Mass/Vol] 0.16 mg/dL 0.00-1.30 [facility] Carbon dioxide, total [Moles /volume] in Central venous bloodOrdered By: Zackary Lyon on 09-06-2024 CO2 [Moles/Vol] 25.0 mmol/L 21.0-32.[address] [facility] Chloride assayOrdered By: Jesse Lyon on 09-06-2024 Chloride [Moles/Vol] 101 mmol/L 98-108 [facility] Eosinophil percentageOrdered By: Zackary Lyon on 09-06-2024 Eosinophils/100 WBC (Bld) 5.2 % High 0-[address] [facility] Erythrocyte distribution wid th ratioOrdered By: Zackary Lyon on 09-06-2024 Erythrocyte distribution width (RBC) [Ratio] 12.9 % 11.6-14.[address] [facility] Erythrocyte distribution wid th standard deviationOrdered By: Zackary Lyon on 09-06-2024 Erythrocyte distribution width (RBC) [Ratio] 44.5 fl High 35.1-43.[address] [facility] Glomerular filtration rate ( GFR) estimation/1.73 sq m using serum, plasma, or whole bOrdered By: Zackary Lyon on 09-06-2024 GFR/1.73 sq M.predicted among non-blacks MDRD (S/P/Bld) [Vol rate/Area] 68 mL/min/{1.73_m2} >[address] [facility] Hematocrit Auto (Bld) [Volum e fraction]Ordered By: Zackary Lyon on 09-06-2024 Hematocrit (Bld) [Volume fraction] 29.8 % Low 37-[address] [facility] Hemoglobin measurementOrdere d By: Zackary Lyon on 09-06-2024 Hemoglobin (Bld) [Mass/Vol] 9.4 g/dL Low 12.0-15.[address] [facility] Immature granulocytes/100 WB C Auto (Bld)Ordered By: Zackary Lyon on 09-06-2024 Immature granulocytes/100 WBC (Bld) 0.400 % 0.0-0.[address] [facility] MCV (mean corpuscular volume ) determinationOrdered By: Zackary Lyon on 09-06-2024 MCV (RBC) [Entitic vol] 93.7 fL 81-99 [facility] Mean corpuscular hemoglobin (MCH) determinationOrdered By: Zackary Lyon on 09-06-2024 MCH (RBC) [Entitic mass] 29.6 pg 27.0-32.[address] [facility] Monocyte percentageOrdered B y: Zcakary Lyon on 09-06-2024 Monocytes/100 WBC (Bld) 10.6 % High 0-10 [facility] Neutrophil percentageOrdered By: Jesseyarielramon Toddmonicasalvador on 09-06-2024 Neutrophils/100 WBC (Bld) 56.5 % 47-[address] [facility] No Panel InformationOrdered By: Zackary Lyon on 09-06-2024 19 U/L <[address] [facility] Platelet countOrdered By: Jesse mellynataly Brooksmonicasalvador on 09-06-2024 Platelets (Bld) [#/Vol] 337 10*3/uL 150-[address] [facility] Potassium measurement (mass/ volume)Ordered By: Zackary Lyon on 09-06-2024 Potassium (Unsp spec) [Mass/Vol] 4.3 mmol/L 3.3-5.[address] [facility] RBC Auto (Bld) [#/Vol]Ordere d By: Zackary Lyon on 09-06-2024 RBC (Bld) [#/Vol] 3.18 10*6/uL Low 4.2-5.4 [facility] Serum creatinine measurement (mass/volume)Ordered By: Zackary Lyon on 09-06-2024 Creatinine [Mass/Vol] 0.83 mg/dL 0.70-1.20 [facility] Serum globulin measurementOr dered By: Zackary Lyon on 09-06-2024 Globulin (S) [Mass/Vol] 2.7 g/dL 2.2-4.2 [facility] Serum glucose measurement (m ass/volume)Ordered By: Zackary Lyon on 09-06-2024 Glucose [Mass/Vol] 88 mg/dL 70-99 [facility] Serum or plasma alanine clifton otransferase (ALT) measurementOrdered By: Zackary Lyon 09-06-2024 ALT [Catalytic activity/Vol] 11 U/L <[address] [facility] Serum or plasma albumin manuel urement (mass/volume)Ordered By: Zackary Lyon 09-06-2024 Albumin [Mass/Vol] 3.5 g/dL 3.4-4.8 [facility] Serum or plasma albumin/glob ulin mass ratioOrdered By: Zackary Lyon on 09-06-2024 Albumin/Globulin [Mass ratio] 1.3 {ratio} 0.9-2.[address] [facility] Serum or plasma alkaline bibi sphatase measurementOrdered By: Zackary Lyon on 09-06-2024 ALP [Catalytic activity/Vol] 60 U/L 35-[address] [facility] Serum or plasma calcium manuel urement (mass/volume)Ordered By: Zackary Toddmonicasalvador on 09-06-2024 Calcium [Mass/Vol] 10.0 mg/dL 7.6-11.0 [facility] Serum or plasma urea nitroge n measurement (mass/volume)Ordered By: Zackary Lyon on 09-06-2024 Urea nitrogen [Mass/Vol] 33 mg/dL High 4-[address] [facility] Sodium levelOrdered By: Yohannes Lyon on 09-06-2024 Sodium [Moles/Vol] 137 mmol/L 133-145 [facility] Total proteinOrdered By: James Lyon on 09-06-2024 Protein [Mass/Vol] 6.1 g/dL 5.9-8.4 [facility] White blood cell (WBC) count Ordered By: Zackary Toddmonicasalvador on 09-06-2024 WBC (Bld) [#/Vol] 6.7 10*3/uL 4.4-11.0 [facility] Absolute lymphocyte countOrd ered By: Juan José Thorpe on 09-03-2024 Lymphocytes Auto (Unsp spec) [#/Vol] 1.68 10*3/uL 0.83-4.[address] [facility] Anion gap in Serum or Plasma Ordered By: Juan José Thorpe on 09-03-2024 Anion gap [Moles/Vol] 14 mmol/L 5-15 [facility] Automated lymphocyte count a s percentage of total leukocytesOrdered By: Juan José Thorpe on 09-03-2024 Lymphocytes/100 WBC Auto (Unsp spec) 23.3 % 19-[address] [facility] BUN/creatinine ratioOrdered By: Juan José Thorpe on 09-03-2024 Urea nitrogen/Creatinine [Mass ratio] 26.1 mg/mg High 10-[address] [facility] Basic Metabolic Profile (BMP )on 09-03-2024 BUN/CRE 26.1 RATIO High 10-[address] [facility] Comment on above: Performed By: #### L 500.2500, L100.0100 ####[facility] [address] [place], [address] Calcium [Mass/Vol] 9.5 mg/dL Normal 7.6-11.0 [facility] Comment on above: Performed By: #### L 500.2500, L100.0100 ####[facility] [address] [place], [address] Chloride [Moles/Vol] 102 mmol/L Normal 98-108 [facility] Comment on above: Performed By: #### L 500.2500, L100.0100 ####[facility] [address] [place], [address] CO2 [Moles/Vol] 23.3 mmol/L Normal 21.0-32.[address] [facility] Comment on above: Performed By: #### L 500.2500, L100.0100 ####[facility] [address] [place], [address] Creatinine [Mass/Vol] 0.78 mg/dL Normal 0.70-1.20 [facility] Comment on above: Performed By: #### L 500.2500, L100.0100 ####[facility] [address] [place], [address] ECRCL 47.90 ml/min Low 50-[address] [facility] Comment on above: Performed By: #### L 500.2500, L100.0100 ####[facility] [address] [place], [address] GAP 14 Normal 5-[address] [facility] Comment on above: Performed By: #### L 500.2500, L100.0100 ####[facility] [address] [place], [address] GFR/1.73 sq M.predicted among non-blacks MDRD (S/P/Bld) [Vol rate/Area] 73 mL/min/{1.73_m2} Normal >[address] [facility] Comment on above: Result Comment: mL/m in/1.73m2 CKD-EPI Creatinine Equation (2020) Performed By: #### L 500.2500, L100.0100 ####[facility] [address] [place], [address] Glucose [Mass/Vol] 113 mg/dL High 70-99 [facility] Comment on above: Performed By: #### L 500.2500, L100.0100 ####[facility] [address], [address] Potassium [Moles/Vol] 3.2 mmol/L Low 3.3-5.1 [facility] Comment on above: Performed By: #### L 500.2500, L100.0100 ####[facility] [address] [place], [address] Sodium [Moles/Vol] 139 mmol/L Normal 133-145 [facility] Comment on above: Performed By: #### L 500.2500, L100.0100 ####[facility] [address], [address] Urea nitrogen [Mass/Vol] 20 mg/dL High 4-[address] [facility] Comment on above: Performed By: #### L 500.2500, L100.0100 ####[facility] [address] [place], [address] Basophil percentageOrdered B y: Juan José Thorpe on 09-03-2024 Basophils/100 WBC (Bld) 0.8 % 0-1 [facility] CBC W/Diff, Automatedon 08-11 Absolute Lymph 1.68 X10 3/uL Normal 0.83-4.[address] [facility] Comment on above: Performed By: #### L 500.2500, L100.0100 ####[facility] [address] [place], [address] Absolute Neut 4.3 X10 3/uL Normal 2.0-7.[address] [facility] Comment on above: Performed By: #### L 500.2500, L100.0100 ####[facility] [address] [place], [address] Basophils/100 WBC (Bld) 0.8 % Normal 0-1 [facility] Comment on above: Performed By: #### L 500.2500, L100.0100 ####[facility] [address] [place], [address] Eosinophils/100 WBC (Bld) 6.9 % High 0-[address] [facility] Comment on above: Performed By: #### L 500.2500, L100.0100 ####[facility] [address] [place], [address] Erythrocyte distribution width (RBC) [Ratio] 13.0 % Normal 11.6-14.[address] [facility] Comment on above: Performed By: #### L 500.2500, L100.0100 ####[facility] [address] [place], [address] Hematocrit (Bld) [Volume fraction] 30.7 % Low 37-[address] [facility] Comment on above: Performed By: #### L 500.2500, L100.0100 ####[facility] [address] [place], [address] Hemoglobin (Bld) [Mass/Vol] 9.7 g/dL Low 12.0-15.[address] [facility] Comment on above: Performed By: #### L 500.2500, L100.0100 ####[facility] [address] [place], [address] IG% 0.400 Normal 0.0-0.[address] [facility] Comment on above: Result Comment: IG% - Immature Granulocytes (promyelocytes, myelocytes andmetamyelocytes) > 1% indicates that a LEFT SHIFT is Present. Performed By: #### L 500.2500, L100.0100 ####[facility] [address] [place], [address] Lymphocytes/100 WBC (Bld) 23.3 % Normal 19-[address] [facility] Comment on above: Performed By: #### L 500.2500, L100.0100 ####[facility] [address] [place], [address] MCH (RBC) [Entitic mass] 29.3 pg Normal 27.0-32.[address] [facility] Comment on above: Performed By: #### L 500.2500, L100.0100 ####[facility] [address] [place], [address] MCHC (RBC) [Mass/Vol] 31.6 g/dL Low 32-36 [facility] Comment on above: Performed By: #### L 500.2500, L100.0100 ####[facility] [address] [place], [address] MCV (RBC) [Entitic vol] 92.7 fL Normal 81-99 [facility] Comment on above: Performed By: #### L 500.2500, L100.0100 ####[facility] [address] [place], [address] Monocytes/100 WBC (Bld) 8.2 % Normal 0-10 [facility] Comment on above: Performed By: #### L 500.2500, L100.0100 ####[facility] [address] [place], [address] Neutrophils/100 WBC (Bld) 60.4 % Normal 47-[address] [facility] Comment on above: Performed By: #### L 500.2500, L100.0100 ####[facility] [address] [place], [address] Nucleated RBC (Bld) [#/Vol] 0 10*3/uL Normal 0-[address] [facility] Comment on above: Performed By: #### L 500.2500, L100.0100 ####[facility] [address] [place], [address] Platelet mean volume (Bld) [Entitic vol] 9.9 fL Normal 6.2-12.[address] [facility] Comment on above: Performed By: #### L 500.2500, L100.0100 ####[facility] [address] [place], [address] Platelets (Bld) [#/Vol] 302 10*3/uL Normal 150-[address] [facility] Comment on above: Performed By: #### L 500.2500, L100.0100 ####[facility] [address] [place], [address] RBC (Bld) [#/Vol] 3.31 10*6/uL Low 4.2-5.4 [facility] Comment on above: Performed By: #### L 500.2500, L100.0100 ####[facility] [address] [place], [address] RDW SD 44.4 fl High 35.1-43.[address] [facility] Comment on above: Performed By: #### L 500.2500, L100.0100 ####[facility] [address] [place], [address] WBC (Bld) [#/Vol] 7.2 10*3/uL Normal 4.4-11.0 [facility] Comment on above: Performed By: #### L 500.2500, L100.0100 ####[facility] [address] [place], [address] Carbon dioxide, total [Moles /volume] in Central venous bloodOrdered By: Juan José Thorpe on 09-03-2024 CO2 [Moles/Vol] 23.3 mmol/L 21.0-32.[address] [facility] Chloride assayOrdered By: Freddie Thorpe on 09-03-2024 Chloride [Moles/Vol] 102 mmol/L 98-108 [facility] Eosinophil percentageOrdered By: Juan José Thorpe on 09-03-2024 Eosinophils/100 WBC (Bld) 6.9 % High 0-[address] [facility] Erythrocyte distribution wid th ratioOrdered By: Juan José Thorpe on 09-03-2024 Erythrocyte distribution width (RBC) [Ratio] 13.0 % 11.6-14.[address] [facility] Erythrocyte distribution wid th standard deviationOrdered By: Juan José Thorpe on 09-03-2024 Erythrocyte distribution width (RBC) [Ratio] 44.4 fl High 35.1-43.[address] [facility] Glomerular filtration rate ( GFR) estimation/1.73 sq m using serum, plasma, or whole bOrdered By: Juan José Thorpe on 09-03-2024 GFR/1.73 sq M.predicted among non-blacks MDRD (S/P/Bld) [Vol rate/Area] 73 mL/min/{1.73_m2} >[address] [facility] Hematocrit Auto (Bld) [Volum e fraction]Ordered By: Juan José Thorpe on 09-03-2024 Hematocrit (Bld) [Volume fraction] 30.7 % Low 37-[address] [facility] Hemoglobin measurementOrdere d By: Juan José Thorpe on 09-03-2024 Hemoglobin (Bld) [Mass/Vol] 9.7 g/dL Low 12.0-15.[address] [facility] Immature granulocytes/100 WB C Auto (Bld)Ordered By: Juan José Thorpe on 09-03-2024 Immature granulocytes/100 WBC (Bld) 0.400 % 0.0-0.[address] [facility] MCV (mean corpuscular volume ) determinationOrdered By: Juan José Thorpe on 09-03-2024 MCV (RBC) [Entitic vol] 92.7 fL 81-99 [facility] Mean corpuscular hemoglobin (MCH) determinationOrdered By: Juan José Thorpe on 09-03-2024 MCH (RBC) [Entitic mass] 29.3 pg 27.0-32.[address] [facility] Monocyte percentageOrdered B y: Juan José Thorpe on 09-03-2024 Monocytes/100 WBC (Bld) 8.2 % 0-10 [facility] Neutrophil percentageOrdered By: Juan José Thorpe on 09-03-2024 Neutrophils/100 WBC (Bld) 60.4 % 47-[address] [facility] Platelet countOrdered By: Freddie Thorpe on 09-03-2024 Platelets (Bld) [#/Vol] 302 10*3/uL 150-[address] [facility] Potassium measurement (mass/ volume)Ordered By: Juan José Thorpe on 09-03-2024 Potassium (Unsp spec) [Mass/Vol] 3.2 mmol/L Low 3.3-5.[address] [facility] RBC Auto (Bld) [#/Vol]Ordere d By: Juan José Thorpe on 09-03-2024 RBC (Bld) [#/Vol] 3.31 10*6/uL Low 4.2-5.4 [facility] Serum creatinine measurement (mass/volume)Ordered By: Juan José Thorpe on 09-03-2024 Creatinine [Mass/Vol] 0.78 mg/dL 0.70-1.20 [facility] Serum glucose measurement (m ass/volume)Ordered By: Juan José Thorpe on 09-03-2024 Glucose [Mass/Vol] 113 mg/dL High 70-99 [facility] Serum or plasma calcium manuel urement (mass/volume)Ordered By: Juan José Thorpe on 09-03-2024 Calcium [Mass/Vol] 9.5 mg/dL 7.6-11.0 [facility] Serum or plasma urea nitroge n measurement (mass/volume)Ordered By: Juan José Thorpe on 09-03-2024 Urea nitrogen [Mass/Vol] 20 mg/dL High 4-[address] [facility] Sodium levelOrdered By: Carroll Thorpe on 09-03-2024 Sodium [Moles/Vol] 139 mmol/L 133-145 [facility] White blood cell (WBC) count Ordered By: Juan José Thorpe on 09-03-2024 WBC (Bld) [#/Vol] 7.2 10*3/uL 4.4-11.0 [facility] Bilirubin, totalOrdered By: Juan José Thorpe on 09-02-2024 Bilirubin [Mass/Vol] 0.27 mg/dL 0.00-1.30 [facility] CBC W/Diff, Automatedon 08-11 Absolute Lymph 1.63 X10 3/uL Normal 0.83-4.[address] [facility] Comment on above: Performed By: #### L 500.4050, L501.2300, L501.5200, L100.0100 ####[facility] [address] [place], [address] Absolute Neut 6.4 X10 3/uL Normal 2.0-7.[address] [facility] Comment on above: Performed By: #### L 500.4050, L501.2300, L501.5200, L100.0100 ####[facility] [address] [place], [address] Basophils/100 WBC (Bld) 0.5 % Normal 0-1 [facility] Comment on above: Performed By: #### L 500.4050, L501.2300, L501.5200, L100.0100 ####[facility] [address], [address] Eosinophils/100 WBC (Bld) 3.9 % Normal 0-[address] [facility] Comment on above: Performed By: #### L 500.4050, L501.2300, L501.5200, L100.0100 ####[facility] [address], [address] Erythrocyte distribution width (RBC) [Ratio] 13.1 % Normal 11.6-14.[address] [facility] Comment on above: Performed By: #### L 500.4050, L501.2300, L501.5200, L100.0100 ####[facility] [address], [address] Hematocrit (Bld) [Volume fraction] 31.2 % Low 37-[address] [facility] Comment on above: Performed By: #### L 500.4050, L501.2300, L501.5200, L100.0100 ####[facility] [address], [address] Hemoglobin (Bld) [Mass/Vol] 10.0 g/dL Low 12.0-15.[address] [facility] Comment on above: Performed By: #### L 500.4050, L501.2300, L501.5200, L100.0100 ####[facility] [address], [address] IG% 0.300 Normal 0.0-0.[address] [facility] Comment on above: Result Comment: IG% - Immature Granulocytes (promyelocytes, myelocytes andmetamyelocytes) > 1% indicates that a LEFT SHIFT is Present. Performed By: #### L 500.4050, L501.2300, L501.5200, L100.0100 ####[facility] [address], [address] Lymphocytes/100 WBC (Bld) 17.4 % Low 19-[address] [facility] Comment on above: Performed By: #### L 500.4050, L501.2300, L501.5200, L100.0100 ####[facility] [address], [address] MCH (RBC) [Entitic mass] 29.6 pg Normal 27.0-32.[address] [facility] Comment on above: Performed By: #### L 500.4050, L501.2300, L501.5200, L100.0100 ####[facility] [address], [address] MCHC (RBC) [Mass/Vol] 32.1 g/dL Normal 32-36 [facility] Comment on above: Performed By: #### L 500.4050, L501.2300, L501.5200, L100.0100 ####[facility] [address], [address] MCV (RBC) [Entitic vol] 92.3 fL Normal 81-99 [facility] Comment on above: Performed By: #### L 500.4050, L501.2300, L501.5200, L100.0100 ####[facility] [address], [address] Monocytes/100 WBC (Bld) 9.6 % Normal 0-10 [facility] Comment on above: Performed By: #### L 500.4050, L501.2300, L501.5200, L100.0100 ####[facility] [address], [address] Neutrophils/100 WBC (Bld) 68.3 % Normal 47-[address] [facility] Comment on above: Performed By: #### L 500.4050, L501.2300, L501.5200, L100.0100 ####[facility] [address] [place], [address] Nucleated RBC (Bld) [#/Vol] 0 10*3/uL Normal 0-[address] [facility] Comment on above: Performed By: #### L 500.4050, L501.2300, L501.5200, L100.0100 ####[facility] [address], [address] Platelet mean volume (Bld) [Entitic vol] 9.5 fL Normal 6.2-12.[address] [facility] Comment on above: Performed By: #### L 500.4050, L501.2300, L501.5200, L100.0100 ####[facility] [address], [address] Platelets (Bld) [#/Vol] 314 10*3/uL Normal 150-[address] [facility] Comment on above: Performed By: #### L 500.4050, L501.2300, L501.5200, L100.0100 ####[facility] [address], [address] RBC (Bld) [#/Vol] 3.38 10*6/uL Low 4.2-5.4 [facility] Comment on above: Performed By: #### L 500.4050, L501.2300, L501.5200, L100.0100 ####[facility] [address] [place], [address] RDW SD 44.2 fl High 35.1-43.[address] [facility] Comment on above: Performed By: #### L 500.4050, L501.2300, L501.5200, L100.0100 ####[facility] [address], [address] WBC (Bld) [#/Vol] 9.4 10*3/uL Normal 4.4-11.0 [facility] Comment on above: Performed By: #### L 500.4050, L501.2300, L501.5200, L100.0100 ####[facility] [address], [address] Comprehensive Metabolic Prof [facility] 09-02-2024 Albumin [Mass/Vol] 3.6 g/dL Normal 3.4-4.8 [facility] Comment on above: Performed By: #### L 500.4050, L501.2300, L501.5200, L100.0100 ####[facility] [address], [address] Albumin/Globulin [Mass ratio] 1.3 {ratio} Normal 0.9-2.[address] [facility] Comment on above: Performed By: #### L 500.4050, L501.2300, L501.5200, L100.0100 ####[facility] [address] [place], [address] ALK PHOS 62 U/L Normal 35-[address] [facility] Comment on above: Performed By: #### L 500.4050, L501.2300, L501.5200, L100.0100 ####[facility] [address] [place], [address] ALT [Catalytic activity/Vol] 9 U/L Normal <=[address] [facility] Comment on above: Performed By: #### L 500.4050, L501.2300, L501.5200, L100.0100 ####[facility] [address] [place], [address] AST [Catalytic activity/Vol] 23 U/L Normal <=[address] [facility] Comment on above: Performed By: #### L 500.4050, L501.2300, L501.5200, L100.0100 ####[facility] [address] [place], [address] Bilirubin [Mass/Vol] 0.27 mg/dL Normal 0.00-1.30 [facility] Comment on above: Performed By: #### L 500.4050, L501.2300, L501.5200, L100.0100 ####[facility] [address], [address] BUN/CRE 28.3 RATIO High 10-[address] [facility] Comment on above: Performed By: #### L 500.4050, L501.2300, L501.5200, L100.0100 ####[facility] [address] [place], [address] Calcium [Mass/Vol] 9.8 mg/dL Normal 7.6-11.0 [facility] Comment on above: Performed By: #### L 500.4050, L501.2300, L501.5200, L100.0100 ####[facility] [address] [place], [address] Chloride [Moles/Vol] 100 mmol/L Normal 98-108 [facility] Comment on above: Performed By: #### L 500.4050, L501.2300, L501.5200, L100.0100 ####[facility] [address] [place], [address] CO2 [Moles/Vol] 27.2 mmol/L Normal 21.0-32.[address] [facility] Comment on above: Performed By: #### L 500.4050, L501.2300, L501.5200, L100.0100 ####[facility] [address] [place], [address] Creatinine [Mass/Vol] 0.82 mg/dL Normal 0.70-1.20 [facility] Comment on above: Performed By: #### L 500.4050, L501.2300, L501.5200, L100.0100 ####[facility] [address] [place], [address] ECRCL 46.73 ml/min Low 50-[address] [facility] Comment on above: Performed By: #### L 500.4050, L501.2300, L501.5200, L100.0100 ####[facility] [address] [place], [address] GAP 11 Normal 5-[address] [facility] Comment on above: Performed By: #### L 500.4050, L501.2300, L501.5200, L100.0100 ####[facility] [address] [place], [address] GFR/1.73 sq M.predicted among non-blacks MDRD (S/P/Bld) [Vol rate/Area] 69 mL/min/{1.73_m2} Normal >[address] [facility] Comment on above: Result Comment: mL/m in/1.73m2 CKD-EPI Creatinine Equation (2020) Performed By: #### L 500.4050, L501.2300, L501.5200, L100.0100 ####[facility] [address], [address] Globulin (S) [Mass/Vol] 2.7 g/dL Normal 2.2-4.2 [facility] Comment on above: Performed By: #### L 500.4050, L501.2300, L501.5200, L100.0100 ####[facility] [address], [address] Glucose [Mass/Vol] 108 mg/dL High 70-99 [facility] Comment on above: Performed By: #### L 500.4050, L501.2300, L501.5200, L100.0100 ####[facility] [address], [address] Potassium [Moles/Vol] 3.9 mmol/L Normal 3.3-5.1 [facility] Comment on above: Performed By: #### L 500.4050, L501.2300, L501.5200, L100.0100 ####[facility] [address], [address] Sodium [Moles/Vol] 139 mmol/L Normal 133-145 [facility] Comment on above: Performed By: #### L 500.4050, L501.2300, L501.5200, L100.0100 ####[facility] [address], [address] T PROT 6.3 g/dL Normal 5.9-8.[address] [facility] Comment on above: Performed By: #### L 500.4050, L501.2300, L501.5200, L100.0100 ####[facility] [address] [place], [address] Urea nitrogen [Mass/Vol] 23 mg/dL High 4-[address] [facility] Comment on above: Performed By: #### L 500.4050, L501.2300, L501.5200, L100.0100 ####[facility] [address], [address] Magnesiumon 09-02-2024 Magnesium [Mass/Vol] 2.1 mg/dL Normal 1.5-2.2 [facility] Comment on above: Performed By: #### L 500.4050, L501.2300, L501.5200, L100.0100 ####[facility] [address], [address] Magnesium measurement (mass/ volume)Ordered By: Juan José Thorpe on 09-02-2024 Magnesium (Unsp spec) [Mass/Vol] 2.1 mg/dL 1.5-2.[address] [facility] No Panel InformationOrdered By: Juan José Thorpe on 09-02-2024 23 U/L <[address] [facility] Phosphoruson 09-02-2024 Phosphate [Mass/Vol] 4.5 mg/dL Normal 2.7-4.5 [facility] Comment on above: Performed By: #### L 500.4050, L501.2300, L501.5200, L100.0100 ####[facility] [address], [address] Serum globulin measurementOr dered By: Juan José Thorpe on 09-02-2024 Globulin (S) [Mass/Vol] 2.7 g/dL 2.2-4.2 [facility] Serum or plasma alanine clifton otransferase (ALT) measurementOrdered By: Juan José Thorpe on 09-02-2024 ALT [Catalytic activity/Vol] 9 U/L <[address] [facility] Serum or plasma albumin manuel urement (mass/volume)Ordered By: Juan José Thorpe on 09-02-2024 Albumin [Mass/Vol] 3.6 g/dL 3.4-4.8 [facility] Serum or plasma albumin/glob ulin mass ratioOrdered By: Juan José Thorpe on 09-02-2024 Albumin/Globulin [Mass ratio] 1.3 {ratio} 0.9-2.[address] [facility] Serum or plasma alkaline bibi sphatase measurementOrdered By: Juan José Thorpe on 09-02-2024 ALP [Catalytic activity/Vol] 62 U/L 35-[address] [facility] Total proteinOrdered By: Obed Thorpe on 09-02-2024 Protein [Mass/Vol] 6.3 g/dL 5.9-8.4 [facility] Alcohol, Blood (Medical)-Ser umon 09-01-2024 SERUM ETOH < 10.1 Normal <=10.[address] [facility] Comment on above: Result Comment: This test is for medical purposes only. The legaldefinition of intoxication varies according to local law. Performed By: #### L 501.9100, L505.5000 ####[facility] [address] [place], [place], [id number] H AND P Exam - Hospitaliston 09-01-2024 H&P Exam - Hospitalist Normal [facility] Urine Drug Screen (VISTA)on 09-01-2024 AMPHETAMINES Negative Normal <1000 ng/mL [facility] Comment on above: Performed By: #### L 501.9100, L505.5000 ####[facility] [address] [place], [place], [id number] BARBITIURATES Negative Normal < 200 ng/mL [facility] Comment on above: Performed By: #### L 501.9100, L505.5000 ####[facility] [address] [place], [address] BENZODIAZIPINE Negative Normal < 200 ng/mL [facility] Comment on above: Performed By: #### L 501.9100, L505.5000 ####[facility] [address], [address] BUP Ur Drug Scr Negative Normal < 200 ng/mL [facility] Comment on above: Performed By: #### L 501.9100, L505.5000 ####[facility] [address] [place], [address] COCAINE Negative Normal < 300 ng/mL [facility] Comment on above: Performed By: #### L 501.9100, L505.5000 ####[facility] [address] [place], [address] Fentanyl Negative Normal [facility] Comment on above: Performed By: #### L 501.9100, L505.5000 ####[facility] [address] [place], [address] METHADONE Negative Normal < 300 ng/mL [facility] Comment on above: Performed By: #### L 501.9100, L505.5000 ####[facility] [address], [address] OPIATES Negative Normal < 300 ng/mL [facility] Comment on above: Performed By: #### L 501.9100, L505.5000 ####[facility] [address] [place], [address] OXYCODONE Negative Normal < 100 ng/mL [facility] Comment on above: Performed By: #### L 501.9100, L505.5000 ####[facility] [address] [place], [address] PCP Negative Normal < 25 ng/mL [facility] Comment on above: Performed By: #### L 501.9100, L505.5000 ####[facility] [address] [place], [address] THC Negative Normal < 50 ng/mL [facility] Comment on above: Performed By: #### L 501.9100, L505.5000 ####[facility] [address] [place], [address] Absolute lymphocyte countOrd ered By: Layla Craig on 08-31-2024 Lymphocytes Auto (Unsp spec) [#/Vol] 1.52 10*3/uL 0.83-4.[address] [facility] Ammoniaon 08-31-2024 Ammonia (P) [Moles/Vol] 19.3 umol/L Normal [facility] Comment on above: Performed By: #### L 100.0100, L503.5510, L500.2500, L500.3400 ####[facility] [address] [place], [place], [id number] Amphetamine detection with 1 000 ng/mL as cutoffOrdered By: Juan José Thorpe on 08-31-2024 Amphetamines Screen method >1000 ng/mL Ql (U) Negative < 200 ng/mL [facility] Anion gap in Serum or Plasma Ordered By: Layla Craig on 08-31-2024 Anion gap [Moles/Vol] 14 mmol/L 5-15 [facility] Automated lymphocyte count a s percentage of total leukocytesOrdered By: Layla Craig on 08-31-2024 Lymphocytes/100 WBC Auto (Unsp spec) 22.0 % [facility] BUN/creatinine ratioOrdered By: Layla Craig on 08-31-2024 Urea nitrogen/Creatinine [Mass ratio] 27.1 mg/mg High 02-[address] [facility] Basic Metabolic Profile (BMP )on 08-31-2024 BUN/CRE 31.1 RATIO High 02-[address] [facility] Comment on above: Performed By: #### L 100.0100, L503.5510, L500.2500, L500.3400 ####[facility] [address] [place], [address] Calcium [Mass/Vol] 9.9 mg/dL Normal 7.6-11.0 [facility] Comment on above: Performed By: #### L 100.0100, L503.5510, L500.2500, L500.3400 ####[facility] [address] [place], [address] Chloride [Moles/Vol] 97 mmol/L Low 98-108 [facility] Comment on above: Performed By: #### L 100.0100, L503.5510, L500.2500, L500.3400 ####[facility] [address] [place], [address] CO2 [Moles/Vol] 31.0 mmol/L Normal 21.0-32.[address] [facility] Comment on above: Performed By: #### L 100.0100, L503.5510, L500.2500, L500.3400 ####[facility] [address] [place], [address] Creatinine [Mass/Vol] 1.06 mg/dL Normal 0.70-1.20 [facility] Comment on above: Performed By: #### L 100.0100, L503.5510, L500.2500, L500.3400 ####[facility] [address] [place], [address] ECRCL 33.21 ml/min Low 50-[address] [facility] Comment on above: Performed By: #### L 100.0100, L503.5510, L500.2500, L500.3400 ####[facility] [address] [place], [address] GAP 11 Normal 5-[address] [facility] Comment on above: Performed By: #### L 100.0100, L503.5510, L500.2500, L500.3400 ####[facility] [address] [place], [address] GFR/1.73 sq M.predicted among non-blacks MDRD (S/P/Bld) [Vol rate/Area] 51 mL/min/{1.73_m2} Low >[address] [facility] Comment on above: Result Comment: mL/m in/1.73m2 CKD-EPI Creatinine Equation (2020) Performed By: #### L 100.0100, L503.5510, L500.2500, L500.3400 ####[facility] [address] [place], [address] Glucose [Mass/Vol] 104 mg/dL High 70-99 [facility] Comment on above: Performed By: #### L 100.0100, L503.5510, L500.2500, L500.3400 ####[facility] [address] [place], [address] Potassium [Moles/Vol] 4.0 mmol/L Normal 3.3-5.1 [facility] Comment on above: Performed By: #### L 100.0100, L503.5510, L500.2500, L500.3400 ####[facility] [address] [place], [address] Sodium [Moles/Vol] 140 mmol/L Normal 133-145 [facility] Comment on above: Performed By: #### L 100.0100, L503.5510, L500.2500, L500.3400 ####[facility] [address] [place], [address] Urea nitrogen [Mass/Vol] 33 mg/dL High 4-[address] [facility] Comment on above: Performed By: #### L 100.0100, L503.5510, L500.2500, L500.3400 ####[facility] [address] [place], [address] Basophil percentageOrdered B y: Layla Craig on 08-31-2024 Basophils/100 WBC (Bld) 0.9 % 0-1 [facility] Bilirubin Test strip Ql (U)O rdered By: Scooby Mobley on 08-31-2024 Bilirubin Ql (U) Negative Negative [facility] Bilirubin directOrdered By: Scooby Mobley on 08-31-2024 Bilirubin.direct [Mass/Vol] 0.13 mg/dL 0.00-0.[address] [facility] Bilirubin, totalOrdered By: Layla Craig on 08-31-2024 Bilirubin [Mass/Vol] 0.40 mg/dL 0.00-1.30 [facility] Brain without Contraston Brain without Contrast Normal [facility] CBC W/Diff, Automatedon 08-11 Absolute Lymph 1.15 X10 3/uL Normal 0.83-4.[address] [facility] Comment on above: Performed By: #### L 100.0100, L503.5510, L500.2500, L500.3400 ####[facility] [address] [facility] [address] Absolute Neut 7.5 X10 3/uL Normal 2.0-7.[address] [facility] Comment on above: Performed By: #### L 100.0100, L503.5510, L500.2500, L500.3400 ####[facility] [address], [address] Basophils/100 WBC (Bld) 0.7 % Normal 0-1 [facility] Comment on above: Performed By: #### L 100.0100, L503.5510, L500.2500, L500.3400 ####[facility] [address] [place], [address] Eosinophils/100 WBC (Bld) 3.4 % Normal 0-[address] [facility] Comment on above: Performed By: #### L 100.0100, L503.5510, L500.2500, L500.3400 ####[facility] [address] [place], [address] Erythrocyte distribution width (RBC) [Ratio] 13.1 % Normal 11.6-14.[address] [facility] Comment on above: Performed By: #### L 100.0100, L503.5510, L500.2500, L500.3400 ####[facility] [address], [address] Hematocrit (Bld) [Volume fraction] 32.6 % Low 37-[address] [facility] Comment on above: Performed By: #### L 100.0100, L503.5510, L500.2500, L500.3400 ####[facility] [address] [place], [address] Hemoglobin (Bld) [Mass/Vol] 10.4 g/dL Low 12.0-15.[address] [facility] Comment on above: Performed By: #### L 100.0100, L503.5510, L500.2500, L500.3400 ####[facility] [address], [address] IG% 0.600 Normal 0.0-0.[address] [facility] Comment on above: Result Comment: IG% - Immature Granulocytes (promyelocytes, myelocytes andmetamyelocytes) > 1% indicates that a LEFT SHIFT is Present. Performed By: #### L 100.0100, L503.5510, L500.2500, L500.3400 ####[facility] [address] [place], [address] Lymphocytes/100 WBC (Bld) 11.7 % Low 19-[address] [facility] Comment on above: Performed By: #### L 100.0100, L503.5510, L500.2500, L500.3400 ####[facility] [address], [address] MCH (RBC) [Entitic mass] 29.5 pg Normal 27.0-32.[address] [facility] Comment on above: Performed By: #### L 100.0100, L503.5510, L500.2500, L500.3400 ####[facility] [address] [place], [address] MCHC (RBC) [Mass/Vol] 31.9 g/dL Low 32-36 [facility] Comment on above: Performed By: #### L 100.0100, L503.5510, L500.2500, L500.3400 ####[facility] [address], [address] MCV (RBC) [Entitic vol] 92.6 fL Normal 81-99 [facility] Comment on above: Performed By: #### L 100.0100, L503.5510, L500.2500, L500.3400 ####[facility] [address], [address] Monocytes/100 WBC (Bld) 7.9 % Normal 0-10 [facility] Comment on above: Performed By: #### L 100.0100, L503.5510, L500.2500, L500.3400 ####[facility] [address], [address] Neutrophils/100 WBC (Bld) 75.7 % High 47-[address] [facility] Comment on above: Performed By: #### L 100.0100, L503.5510, L500.2500, L500.3400 ####[facility] [address], [address] Nucleated RBC (Bld) [#/Vol] 0 10*3/uL Normal 0-[address] [facility] Comment on above: Performed By: #### L 100.0100, L503.5510, L500.2500, L500.3400 ####[facility] [address], [address] Platelet mean volume (Bld) [Entitic vol] 9.7 fL Normal 6.2-12.[address] [facility] Comment on above: Performed By: #### L 100.0100, L503.5510, L500.2500, L500.3400 ####[facility] [address], [address] Platelets (Bld) [#/Vol] 320 10*3/uL Normal 150-[address] [facility] Comment on above: Performed By: #### L 100.0100, L503.5510, L500.2500, L500.3400 ####[facility] [address], [address] RBC (Bld) [#/Vol] 3.52 10*6/uL Low 4.2-5.4 [facility] Comment on above: Performed By: #### L 100.0100, L503.5510, L500.2500, L500.3400 ####[facility] [address] [place], [address] RDW SD 44.3 fl High 35.1-43.[address] [facility] Comment on above: Performed By: #### L 100.0100, L503.5510, L500.2500, L500.3400 ####[facility] [address], [address] WBC (Bld) [#/Vol] 9.9 10*3/uL Normal 4.4-11.0 [facility] Comment on above: Performed By: #### L 100.0100, L503.5510, L500.2500, L500.3400 ####[facility] [address], [address] Absolute Lymph 1.52 X10 3/uL Normal 0.83-4.[address] [facility] Comment on above: Performed By: #### L 100.0100, L500.4100, L500.4050 ####[facility] [address], [address] Absolute Neut 4.5 X10 3/uL Normal 2.0-7.[address] [facility] Comment on above: Performed By: #### L 100.0100, L500.4100, L500.4050 ####[facility] [address], [address] Basophils/100 WBC (Bld) 0.9 % Normal 0-1 [facility] Comment on above: Performed By: #### L 100.0100, L500.4100, L500.4050 ####[facility] [address], [address] Eosinophils/100 WBC (Bld) 2.5 % Normal 0-[address] [facility] Comment on above: Performed By: #### L 100.0100, L500.4100, L500.4050 ####[facility] [address], [address] Erythrocyte distribution width (RBC) [Ratio] 13.1 % Normal 11.6-14.[address] [facility] Comment on above: Performed By: #### L 100.0100, L500.4100, L500.4050 ####[facility] [address], [address] Hematocrit (Bld) [Volume fraction] 32.2 % Low 37-[address] [facility] Comment on above: Performed By: #### L 100.0100, L500.4100, L500.4050 ####[facility] [address] [place], [address] Hemoglobin (Bld) [Mass/Vol] 10.3 g/dL Low 12.0-15.[address] [facility] Comment on above: Performed By: #### L 100.0100, L500.4100, L500.4050 ####[facility] [address], [address] IG% 0.400 Normal 0.0-0.[address] [facility] Comment on above: Result Comment: IG% - Immature Granulocytes (promyelocytes, myelocytes andmetamyelocytes) > 1% indicates that a LEFT SHIFT is Present. Performed By: #### L 100.0100, L500.4100, L500.4050 ####[facility] [address], [address] Lymphocytes/100 WBC (Bld) 22.0 % Normal 19-[address] [facility] Comment on above: Performed By: #### L 100.0100, L500.4100, L500.4050 ####[facility] [address] [place], [address] MCH (RBC) [Entitic mass] 29.9 pg Normal 27.0-32.[address] [facility] Comment on above: Performed By: #### L 100.0100, L500.4100, L500.4050 ####[facility] [address] [place], [address] MCHC (RBC) [Mass/Vol] 32.0 g/dL Normal 32-36 [facility] Comment on above: Performed By: #### L 100.0100, L500.4100, L500.4050 ####[facility] [address] [place], [address] MCV (RBC) [Entitic vol] 93.3 fL Normal 81-99 [facility] Comment on above: Performed By: #### L 100.0100, L500.4100, L500.4050 ####[facility] [address], [address] Monocytes/100 WBC (Bld) 9.4 % Normal 0-10 [facility] Comment on above: Performed By: #### L 100.0100, L500.4100, L500.4050 ####[facility] [address], [address] Neutrophils/100 WBC (Bld) 64.8 % Normal 47-[address] [facility] Comment on above: Performed By: #### L 100.0100, L500.4100, L500.4050 ####[facility] [address], [address] Nucleated RBC (Bld) [#/Vol] 0 10*3/uL Normal 0-[address] [facility] Comment on above: Performed By: #### L 100.0100, L500.4100, L500.4050 ####[facility] [address], [address] Platelet mean volume (Bld) [Entitic vol] 9.6 fL Normal 6.2-12.[address] [facility] Comment on above: Performed By: #### L 100.0100, L500.4100, L500.4050 ####[facility] [address] [place], [address] Platelets (Bld) [#/Vol] 338 10*3/uL Normal 150-[address] [facility] Comment on above: Performed By: #### L 100.0100, L500.4100, L500.4050 ####[facility] [address] [place], [address] RBC (Bld) [#/Vol] 3.45 10*6/uL Low 4.2-5.4 [facility] Comment on above: Performed By: #### L 100.0100, L500.4100, L500.4050 ####[facility] [address] [place], [address] RDW SD 44.6 fl High 35.1-43.[address] [facility] Comment on above: Performed By: #### L 100.0100, L500.4100, L500.4050 ####[facility] [address] [place], [address] WBC (Bld) [#/Vol] 6.9 10*3/uL Normal 4.4-11.0 [facility] Comment on above: Performed By: #### L 100.0100, L500.4100, L500.4050 ####[facility] [address], [address] Calculated very low density lipoprotein (VLDL) cholesterol measurementOrdered By: Layla Craig on 08-31-2024 Calculated very low density lipoprotein (VLDL) cholesterol measurement 13 mg/dL 5-[address] [facility] Carbon dioxide, total [Moles /volume] in Central venous bloodOrdered By: Layla Craig on 08-31-2024 CO2 [Moles/Vol] 27.1 mmol/L 21.0-32.[address] [facility] Chloride assayOrdered By: Rm Craig on 08-31-2024 Chloride [Moles/Vol] 94 mmol/L Low 98-108 [facility] Comprehensive Metabolic Prof ilon 08-31-2024 Albumin [Mass/Vol] 3.6 g/dL Normal 3.4-4.8 [facility] Comment on above: Order Comment: Comme nts: NPO at [place] prior to lipid panel Performed By: #### L 100.0100, L500.4100, L500.4050 ####[facility] [address] [place], [address] Albumin/Globulin [Mass ratio] 1.2 {ratio} Normal 0.9-2.[address] [facility] Comment on above: Order Comment: Comme nts: NPO at [place] prior to lipid panel Performed By: #### L 100.0100, L500.4100, L500.4050 ####[facility] [address] [place], [address] ALK PHOS 69 U/L Normal 35-[address] [facility] Comment on above: Order Comment: Comme nts: NPO at [place] prior to lipid panel Performed By: #### L 100.0100, L500.4100, L500.4050 ####[facility] [address], [address] ALT [Catalytic activity/Vol] 5 U/L Normal <=[address] [facility] Comment on above: Order Comment: Comme nts: NPO at [place] prior to lipid panel Performed By: #### L 100.0100, L500.4100, L500.4050 ####[facility] [address] [place], [address] AST [Catalytic activity/Vol] 24 U/L Normal <=[address] [facility] Comment on above: Order Comment: Comme nts: NPO at [place] prior to lipid panel Performed By: #### L 100.0100, L500.4100, L500.4050 ####[facility] [address] [place], [address] Bilirubin [Mass/Vol] 0.40 mg/dL Normal 0.00-1.30 [facility] Comment on above: Order Comment: Comme nts: NPO at [place] prior to lipid panel Performed By: #### L 100.0100, L500.4100, L500.4050 ####[facility] [address] [place], [address] BUN/CRE 27.1 RATIO High 10-[address] [facility] Comment on above: Order Comment: Comme nts: NPO at [place] prior to lipid panel Performed By: #### L 100.0100, L500.4100, L500.4050 ####[facility] [address], [address] Calcium [Mass/Vol] 10.0 mg/dL Normal 7.6-11.0 [facility] Comment on above: Order Comment: Comme nts: NPO at [place] prior to lipid panel Performed By: #### L 100.0100, L500.4100, L500.4050 ####[facility] [address] [place], [address] Chloride [Moles/Vol] 94 mmol/L Low 98-108 [facility] Comment on above: Order Comment: Comme nts: NPO at [place] prior to lipid panel Performed By: #### L 100.0100, L500.4100, L500.4050 ####[facility] [address] [place], [address] CO2 [Moles/Vol] 27.1 mmol/L Normal 21.0-32.[address] [facility] Comment on above: Order Comment: Comme nts: NPO at [place] prior to lipid panel Performed By: #### L 100.0100, L500.4100, L500.4050 ####[facility] [address] [place], [address] Creatinine [Mass/Vol] 0.94 mg/dL Normal 0.70-1.20 [facility] Comment on above: Order Comment: Comme nts: NPO at [place] prior to lipid panel Performed By: #### L 100.0100, L500.4100, L500.4050 ####[facility] [address] [place], [address] ECRCL 37.00 ml/min Low 50-[address] [facility] Comment on above: Order Comment: Comme nts: NPO at [place] prior to lipid panel Performed By: #### L 100.0100, L500.4100, L500.4050 ####[facility] [address] [place], [address] GAP 14 Normal 5-[address] [facility] Comment on above: Order Comment: Comme nts: NPO at [place] prior to lipid panel Performed By: #### L 100.0100, L500.4100, L500.4050 ####[facility] [address] [place], [address] GFR/1.73 sq M.predicted among non-blacks MDRD (S/P/Bld) [Vol rate/Area] 59 mL/min/{1.73_m2} Low >[address] [facility] Comment on above: Order Comment: Comme nts: NPO at [place] prior to lipid panel Result Comment: mL/m in/1.73m2 CKD-EPI Creatinine Equation (2020) Performed By: #### L 100.0100, L500.4100, L500.4050 ####[facility] [address], [address] Globulin (S) [Mass/Vol] 2.9 g/dL Normal 2.2-4.2 [facility] Comment on above: Order Comment: Comme nts: NPO at [place] prior to lipid panel Performed By: #### L 100.0100, L500.4100, L500.4050 ####[facility] [address], [address] Glucose [Mass/Vol] 102 mg/dL High 70-99 [facility] Comment on above: Order Comment: Comme nts: NPO at [place] prior to lipid panel Performed By: #### L 100.0100, L500.4100, L500.4050 ####[facility] [address] [place], [address] Potassium [Moles/Vol] 3.6 mmol/L Normal 3.3-5.1 [facility] Comment on above: Order Comment: Comme nts: NPO at [place] prior to lipid panel Performed By: #### L 100.0100, L500.4100, L500.4050 ####[facility] [address], [address] Sodium [Moles/Vol] 135 mmol/L Normal 133-145 [facility] Comment on above: Order Comment: Comme nts: NPO at [place] prior to lipid panel Performed By: #### L 100.0100, L500.4100, L500.4050 ####[facility] [address] [place] [place], [address] T PROT 6.5 g/dL Normal 5.9-8.[address] [facility] Comment on above: Order Comment: Comme nts: NPO at [place] prior to lipid panel Performed By: #### L 100.0100, L500.4100, L500.4050 ####[facility] [address] [place], [address] Urea nitrogen [Mass/Vol] 25 mg/dL High 4-[address] [facility] Comment on above: Order Comment: Comme nts: NPO at [place] prior to lipid panel Performed By: #### L 100.0100, L500.4100, L500.4050 ####[facility] [address] [place], [address] Discharge Instructionon 08-11 Discharge Instruction Normal [facility] Emergency Department Summary on 08-31-2024 Emergency Department Summary Normal [facility] Eosinophil percentageOrdered By: Layla Craig on 08-31-2024 Eosinophils/100 WBC (Bld) 2.5 % 0-[address] [facility] Erythrocyte distribution wid th ratioOrdered By: Layla Craig on 08-31-2024 Erythrocyte distribution width (RBC) [Ratio] 13.1 % 11.6-14.[address] [facility] Erythrocyte distribution wid th standard deviationOrdered By: Layla Craig on 08-31-2024 Erythrocyte distribution width (RBC) [Ratio] 44.6 fl High 35.1-43.[address] [facility] Glomerular filtration rate ( GFR) estimation/1.73 sq m using serum, plasma, or whole bOrdered By: Layla Craig on 08-31-2024 GFR/1.73 sq M.predicted among non-blacks MDRD (S/P/Bld) [Vol rate/Area] 59 mL/min/{1.73_m2} Low >[address] [facility] Hematocrit Auto (Bld) [Volum e fraction]Ordered By: Layla Craig on 08-31-2024 Hematocrit (Bld) [Volume fraction] 32.2 % Low 37-[address] [facility] Hemoglobin measurementOrdere d By: Layla Craig on 08-31-2024 Hemoglobin (Bld) [Mass/Vol] 10.3 g/dL Low 12.0-15.[address] [facility] Immature granulocytes/100 WB C Auto (Bld)Ordered By: Layla Craig on 08-31-2024 Immature granulocytes/100 WBC (Bld) 0.400 % 0.0-0.[address] [facility] Ketones Test strip Ql (U)Ord ered By: Scooby Mobley on 08-31-2024 Ketones Ql (U) Negative Negative [facility] LDL calc ser/plasOrdered By: Layla Craig on 08-31-2024 Cholesterol in LDL [Mass/Vol] 119 mg/dL [facility] Lipid Profileon 08-31-2024 CHOL:HDL 2.[address] [facility] Comment on above: Order Comment: Comme nts: [place] [facility] prior [place] [facility] panel Performed By: #### L 100.0100, L500.4100, L500.4050 ####[facility] [address] [facility] [place], [address] Cholesterol [Mass/Vol] 222 mg/dL High <=200 [facility] Comment on above: Order Comment: Comme nts: NPO at [place] prior to lipid panel Result Comment: Chol esterol level, Desirable <200 mg/dLBorderline high cholesterol 200-239 mg/dLHigh cholesterol >=240 mg/dLRecommendations of the NCEP Adult Treatment Panel for thefollowing risk-cutoff thresholds for the [place] Americanpulation. Performed By: #### L 100.0100, L500.4100, L500.4050 ####[facility] [address] [place], [address] Cholesterol in HDL [Mass/Vol] 90 mg/dL Normal [facility] Comment on above: Order Comment: Comme nts: [place] [facility] prior [facility] panel Result Comment: Arely onal Cholesterol Education Program (NCEP) guidelines:<40 mg/dL: Low HDL-cholesterol (major risk factor for CHD)>= 60 mg/dL: High HDL-cholesterol (negative risk factor forCHD)HDL-cholesterol is affected by a number of factors, e.g.smoking, exercise, hormones, sex and age. Performed By: #### L 100.0100, L500.4100, L500.4050 ####[facility] [address] [place], [address] Cholesterol in LDL [Mass/Vol] 119 mg/dL Normal [facility] Comment on above: Order Comment: Comme nts: [facility] Result Comment: Bord qrjpeu=202-635 mg/dL Higher Sxbn=138 mg/dL or greater Performed By: #### L 100.0100, L500.4100, L500.4050 ####[facility] [address] [place], [address] Cholesterol in VLDL [Mass/Vol] 13 mg/dL Normal 5-[address] [facility] Comment on above: Order Comment: Comme nts: [facility] panel Performed By: #### L 100.0100, L500.4100, L500.4050 ####[facility] [address], [address] Triglyceride [Mass/Vol] 66 mg/dL Normal [facility] Comment on above: Order Comment: Comme nts: [facility] panel Result Comment: The drugs N-Acetylcysteine and Metamizole may falselydepress this assay.Normal range: <150 mg/dLBorderline High: 150-199 mg/dLHigh: 200-499 mg/dLVery High: >500 mg/dL Performed By: #### L 100.0100, L500.4100, L500.4050 ####[facility] [address] [place], [address] Liver Profileon 08-31-2024 Albumin [Mass/Vol] 3.7 g/dL Normal 3.4-4.8 [facility] Comment on above: Performed By: #### L 100.0100, L503.5510, L500.2500, L500.3400 ####[facility] [address] [place], [address] ALK PHOS 69 U/L Normal 35-[address] [facility] Comment on above: Performed By: #### L 100.0100, L503.5510, L500.2500, L500.3400 ####[facility] [address] [place], [address] ALT [Catalytic activity/Vol] 9 U/L Normal <=[address] [facility] Comment on above: Performed By: #### L 100.0100, L503.5510, L500.2500, L500.3400 ####[facility] [address] [place], [address] AST [Catalytic activity/Vol] 26 U/L Normal <=[address] [facility] Comment on above: Performed By: #### L 100.0100, L503.5510, L500.2500, L500.3400 ####[facility] [address], [address] Bilirubin [Mass/Vol] 0.30 mg/dL Normal 0.00-1.30 [facility] Comment on above: Performed By: #### L 100.0100, L503.5510, L500.2500, L500.3400 ####[facility] [address] [place], [address] Bilirubin.direct [Mass/Vol] 0.13 mg/dL Normal 0.00-0.[address] [facility] Comment on above: Performed By: #### L 100.0100, L503.5510, L500.2500, L500.3400 ####[facility] [address] [place], [address] Globulin (S) [Mass/Vol] 3.0 g/dL Normal 2.2-4.2 [facility] Comment on above: Performed By: #### L 100.0100, L503.5510, L500.2500, L500.3400 ####[facility] [address] [place], [address] T PROT 6.6 g/dL Normal 5.9-8.[address] [facility] Comment on above: Performed By: #### L 100.0100, L503.5510, L500.2500, L500.3400 ####[facility] [address] [place], [address] MCV (mean corpuscular volume ) determinationOrdered By: Layla Craig on 08-31-2024 MCV (RBC) [Entitic vol] 93.3 fL 81-99 [facility] MR/CON.PCM.NEon 08-31-2024 MR/CON.PCM.NE Normal [facility] Mean corpuscular hemoglobin (MCH) determinationOrdered By: Layla Craig on 08-31-2024 MCH (RBC) [Entitic mass] 29.9 pg 27.0-32.[address] [facility] Monocyte percentageOrdered B y: Layla Craig on 08-31-2024 Monocytes/100 WBC (Bld) 9.4 % 0-10 [facility] Mucus LM Ql (Urine sed)Order ed By: Scooby Mobley on 08-31-2024 Mucus Ql (Urine sed) 0 SEEN /hpf [facility] Neutrophil percentageOrdered By: Layla Craig on 08-31-2024 Neutrophils/100 WBC (Bld) 64.8 % 47-[address] [facility] Nitrite Test strip Ql (U)Ord ered By: Scooby Mobley on 08-31-2024 Nitrite Ql (U) Negative Negative [facility] No Panel InformationOrdered By: Juan José Thorpe on 08-31-2024 Negative < 200 ng/mL [facility] No Panel InformationOrdered By: Layla Craig on 08-31-2024 24 U/L <[address] [facility] Platelet countOrdered By: Rm Craig on 08-31-2024 Platelets (Bld) [#/Vol] 338 10*3/uL 150-[address] [facility] Potassium measurement (mass/ volume)Ordered By: Layla Craig on 08-31-2024 Potassium (Unsp spec) [Mass/Vol] 3.6 mmol/L 3.3-5.[address] [facility] Protein Test strip Ql (U)Ord ered By: Scooby Mobley on 08-31-2024 Protein Ql (U) 30 mg/dl High Negative [facility] RBC Auto (Bld) [#/Vol]Ordere d By: Layla Craig on 08-31-2024 RBC (Bld) [#/Vol] 3.45 10*6/uL Low 4.2-5.4 [facility] Screening urine fentanyl fran surementOrdered By: Juan José Thorpe on 08-31-2024 fentaNYL Screen Ql (U) Negative [facility] Serum creatinine measurement (mass/volume)Ordered By: Layla Craig on 08-31-2024 Creatinine [Mass/Vol] 0.94 mg/dL 0.70-1.20 [facility] Serum globulin measurementOr dered By: Layla Craig on 08-31-2024 Globulin (S) [Mass/Vol] 2.9 g/dL 2.2-4.2 [facility] Serum glucose measurement (m ass/volume)Ordered By: Layla Craig on 08-31-2024 Glucose [Mass/Vol] 102 mg/dL High 70-99 [facility] Serum or plasma alanine clifton otransferase (ALT) measurementOrdered By: Layla Craig on 08-31-2024 ALT [Catalytic activity/Vol] 5 U/L <[address] [facility] Serum or plasma albumin manuel urement (mass/volume)Ordered By: Layla Craig on 08-31-2024 Albumin [Mass/Vol] 3.6 g/dL 3.4-4.8 [facility] Serum or plasma albumin/glob ulin mass ratioOrdered By: Layla Craig on 08-31-2024 Albumin/Globulin [Mass ratio] 1.2 {ratio} 0.9-2.[address] [facility] Serum or plasma alkaline bibi sphatase measurementOrdered By: Layla Craig on 08-31-2024 ALP [Catalytic activity/Vol] 69 U/L 35-[address] [facility] Serum or plasma calcium manuel urement (mass/volume)Ordered By: Layla Craig on 08-31-2024 Calcium [Mass/Vol] 10.0 mg/dL 7.6-11.0 [facility] Serum or plasma cholesterol in HDL measurement (mass/volume)Ordered By: Layla Craig on 08-31-2024 Cholesterol in HDL [Mass/Vol] 90 mg/dL >[address] [facility] Serum or plasma cholesterol measurement (mass/volume)Ordered By: Layla Craig on 08-31-2024 Cholesterol [Mass/Vol] 222 mg/dL High <201 [facility] Serum or plasma ethanol manuel urement (mass/volume)Ordered By: Juan José Thorpe on 08-31-2024 Ethanol [Mass/Vol] mg/dL <10.1 [facility] Serum or plasma urea nitroge n measurement (mass/volume)Ordered By: Layla Craig on 08-31-2024 Urea nitrogen [Mass/Vol] 25 mg/dL High 4-[address] [facility] Sodium levelOrdered By: Bharathi Craig on 08-31-2024 Sodium [Moles/Vol] 135 mmol/L 133-145 [facility] Squamous epithelial cells de tection in urine sediment by light microscopyOrdered By: Scooby Mobley on 08-31-2024 Epithelial cells.squamous LM Ql (Urine sed) 0 SEEN /hpf - [facility] Total proteinOrdered By: Maykel Craig on 08-31-2024 Protein [Mass/Vol] 6.5 g/dL 5.9-8.4 [facility] Urinalysis, Completeon 08-31 BACTERIA 0 SEEN Normal None Seen [facility] Comment on above: Order Comment: MARV CTOR TO SPECIFY Performed By: #### L 400.0001 ####[facility] [address] [place], [place], [id number] EPI,SQUAMOUS 0 SEEN Normal - [facility] Comment on above: Order Comment: MARV CTOR TO SPECIFY Performed By: #### L 400.0001 ####[facility] [address] [place], [place], [id number] Mucus Ql (Urine sed) 0 SEEN Normal [facility] Comment on above: Order Comment: MARV CTOR TO SPECIFY Performed By: #### L 400.0001 ####[facility] [address] [place], [place], [address] RBC 0 SEEN Normal 0-[address] [facility] Comment on above: Order Comment: MARV CTOR TO SPECIFY Performed By: #### L 400.0001 ####[facility] [address] [place], [place], [id number] WBC 0 SEEN Normal 0-[address] [facility] Comment on above: Order Comment: MARV CTOR TO SPECIFY Performed By: #### L 400.0001 ####[facility] [address] [place], [place], [id number] Urine clarityOrdered By: Ronald Mobley on 08-31-2024 Clarity (U) Clear Clear [facility] Urine color determinationOrd ered By: Scooby Mobley on 08-31-2024 Color (U) Yellow Yellow [facility] Urine glucose detectionOrder ed By: Scooby Mobley on 08-31-2024 Glucose Ql (U) Normal mg/dl Normal [facility] Urine leukocyte esterase det ection by dipstickOrdered By: Scooby Mobley on 08-31-2024 Leukocyte esterase Test strip Ql (U) Negative Negative [facility] Urine pHOrdered By: Scooby naylor on 08-31-2024 pH (U) 7.0 [pH] 5.0 - 8.[address] [facility] Urine phencyclidine (PCP) de tectionOrdered By: Juan José Thorpe on 08-31-2024 Phencyclidine Ql (U) Negative < 25 ng/mL [facility] Urine sediment bacteria coun t by microscopy (number/high power field)Ordered By: Scooby Mobley on 08-31-2024 Bacteria LM.HPF (Urine sed) [#/Area] 0 /[HPF] None Seen [facility] Urine specific gravity measu rementOrdered By: Scooby Mobley on 08-31-2024 Specific gravity (U) [Rel density] 1.010 1.002-1.[address] [facility] Urine urobilinogen measureme ntOrdered By: Scooby Mobley on 08-31-2024 Urobilinogen Ql (U) Normal mg/dl Normal [facility] Venous blood ammonia measure mentOrdered By: Scooby Mobley on 08-31-2024 Ammonia (P) [Moles/Vol] 19.3 umol/L [facility] White blood cell (WBC) count Ordered By: Layla Craig on 08-31-2024 WBC (Bld) [#/Vol] 6.9 10*3/uL 4.4-11.0 [facility] White blood cell countOrdere d By: Scooby Mobley on 08-31-2024 White blood cell count 0 SEEN /hpf 0-5 [facility] 12 Lead EKGon 08-30-2024 12 Lead EKG Normal [facility] Absolute neutrophil countOrd ered By: Ayaz Hinton on 08-30-2024 Absolute neutrophil count 5.3 X10^3/uL 2.0-7.[address] [facility] Activated partial thrombopla stin time (aPTT) in platelet poor plasma by coagulation aOrdered By: Ayaz Hinton on 08-30-2024 aPTT Coag (PPP) [Time] 32.4 s 24.1-36.2 [facility] Ammoniaon 08-30-2024 Ammonia (P) [Moles/Vol] 14.8 umol/L Normal [facility] Comment on above: Performed By: #### L 503.0106, L501.9520, L503.5510 ####[facility] [address] [place], [address] Anion gap [Moles/Vol]Ordered By: Ayaz Hinton on 08-30-2024 Anion gap in Serum or Plasma 14 5-[address] [facility] Assessment of wrist artery p atency prior to arterial punctureOrdered By: Layla Craig on 08-30-2024 Arterial patency Wrist artery --pre arterial puncture Positive [facility] BUN/creatinine ratioOrdered By: Ayaz Hinton on 08-30-2024 BUN/creatinine ratio 28.8 RATIO High 10-20 [facility] Basic Metabolic Profile (BMP )on 08-30-2024 BUN/CRE 28.8 RATIO High 10-[address] [facility] Comment on above: Performed By: #### L 300.3900, L501.4021, L500.2500, L100.0100 ####[facility] [address] [place], [address] Calcium [Mass/Vol] 9.9 mg/dL Normal 7.6-11.0 [facility] Comment on above: Performed By: #### L 300.3900, L501.4021, L500.2500, L100.0100 ####[facility] [address] [place], [address] Chloride [Moles/Vol] 95 mmol/L Low 98-108 [facility] Comment on above: Performed By: #### L 300.3900, L501.4021, L500.2500, L100.0100 ####[facility] [address] [place], [address] CO2 [Moles/Vol] 28.0 mmol/L Normal 21.0-32.[address] [facility] Comment on above: Performed By: #### L 300.3900, L501.4021, L500.2500, L100.0100 ####[facility] [address] [place], [address] Creatinine [Mass/Vol] 1.06 mg/dL Normal 0.70-1.20 [facility] Comment on above: Performed By: #### L 300.3900, L501.4021, L500.2500, L100.0100 ####[facility] [address] [place], [address] ECRCL 32.40 ml/min Low 50-[address] [facility] Comment on above: Performed By: #### L 300.3900, L501.4021, L500.2500, L100.0100 ####[facility] [address] [place], [address] GAP 14 Normal 5-[address] [facility] Comment on above: Performed By: #### L 300.3900, L501.4021, L500.2500, L100.0100 ####[facility] [address] [place], [address] GFR/1.73 sq M.predicted among non-blacks MDRD (S/P/Bld) [Vol rate/Area] 51 mL/min/{1.73_m2} Low >[address] [facility] Comment on above: Result Comment: mL/m in/1.73m2 CKD-EPI Creatinine Equation (2020) Performed By: #### L 300.3900, L501.4021, L500.2500, L100.0100 ####[facility] [address] [place], [address] Glucose [Mass/Vol] 123 mg/dL High 70-99 [facility] Comment on above: Performed By: #### L 300.3900, L501.4021, L500.2500, L100.0100 ####[facility] [address], [address] Potassium [Moles/Vol] 4.2 mmol/L Normal 3.3-5.1 [facility] Comment on above: Result Comment: Hemo lysis present, Results??could be affected.?? Performed By: #### L 300.3900, L501.4021, L500.2500, L100.0100 ####[facility] [address], [address] Sodium [Moles/Vol] 136 mmol/L Normal 133-145 [facility] Comment on above: Performed By: #### L 300.3900, L501.4021, L500.2500, L100.0100 ####[facility] [address], [address] Urea nitrogen [Mass/Vol] 31 mg/dL High 4-[address] [facility] Comment on above: Performed By: #### L 300.3900, L501.4021, L500.2500, L100.0100 ####[facility] [address] [place], [address] Basophil percentageOrdered B y: Ayaz Hinton on 08-30-2024 Basophil percentage 0.9 % 0-1 [facility] Bilirubin Test strip Ql (U)O rdered By: Ayaz Hinton on 08-30-2024 Bilirubin Ql (U) Negative Negative [facility] Blood Gases by CPSon 025 TERESA TEST Positive Normal [facility] Comment on above: Performed By: #### L 9000.0800 ####[facility] [address] [place], [address] Base excess Calc (Bld) [Moles/Vol] 12 mmol/L High -2 to +[address] [facility] Comment on above: Performed By: #### L 9000.0800 ####[facility] [address] [place], [address] Blood Gas Type ART Normal [facility] Comment on above: Performed By: #### L 9000.0800 ####[facility] [address] [place], [address] CO2 [Moles/Vol] 37 mmol/L Normal [facility] Comment on above: Performed By: #### L 9000.0800 ####[facility] [address] [place], [address] FI02 21.[address] [facility] Comment on above: Performed By: #### L 9000.0800 ####[facility] [address] [place], [address] HCO3 (Bld) [Moles/Vol] 35.3 mmol/L High 22-26 [facility] Comment on above: Performed By: #### L 9000.0800 ####[facility] [address] [place], [address] Mode Not entered Normal [facility] Comment on above: Performed By: #### L 0.0800 ####[facility] [address] [place], [address] O2 Delivery Dev Room Air Normal [facility] Comment on above: Performed By: #### L 0.0800 ####[facility] [address] [place], [address] pCO2 45.8 mmHg High 35-[address] [facility] Comment on above: Performed By: #### L 0.0800 ####[facility] [address] [place], [address] pH (Bld) 7.50 [pH] High 7.35-7.[address] [facility] Comment on above: Performed By: #### L 0.0800 ####[facility] [address] [place], [address] PO2 64 mmHG Low 75-[address] [facility] Comment on above: Performed By: #### L 8999.0800 ####[facility] [address] [place], [address] SITE R Radial Normal [facility] Comment on above: Performed By: #### L 0.0800 ####[facility] [address] [place], [address] SO2 93 Low 95-[address] [facility] Comment on above: Performed By: #### L 9000.0800 ####[facility] [address] [place], [address] Blood base excess determinat ionOrdered By: Layla Craig on 08-30-2024 Base excess Calc (BldV) [Moles/Vol] 12 mmol/L High -2-[address] [facility] Blood bicarbonate measuremen tOrdered By: Layla Craig on 08-30-2024 HCO3 (Bld) [Moles/Vol] 35.3 mmol/L High 22-26 [facility] CBC W/Diff, Automatedon 04-2 Absolute Lymph 1.38 X10 3/uL Normal 0.83-4.[address] [facility] Comment on above: Performed By: #### L 300.3900, L501.4021, L500.2500, L100.0100 ####[facility] [address], [address] Absolute Neut 5.3 X10 3/uL Normal 2.0-7.[address] [facility] Comment on above: Performed By: #### L 300.3900, L501.4021, L500.2500, L100.0100 ####[facility] [address] [place], [address] Basophils/100 WBC (Bld) 0.9 % Normal 0-1 [facility] Comment on above: Performed By: #### L 300.3900, L501.4021, L500.2500, L100.0100 ####[facility] [address], [address] Eosinophils/100 WBC (Bld) 1.9 % Normal 0-[address] [facility] Comment on above: Performed By: #### L 300.3900, L501.4021, L500.2500, L100.0100 ####[facility] [address], [address] Erythrocyte distribution width (RBC) [Ratio] 13.1 % Normal 11.6-14.[address] [facility] Comment on above: Performed By: #### L 300.3900, L501.4021, L500.2500, L100.0100 ####[facility] [address], [address] Hematocrit (Bld) [Volume fraction] 38.4 % Normal 37-[address] [facility] Comment on above: Performed By: #### L 300.3900, L501.4021, L500.2500, L100.0100 ####[facility] [address], [address] Hemoglobin (Bld) [Mass/Vol] 12.4 g/dL Normal 12.0-15.[address] [facility] Comment on above: Performed By: #### L 300.3900, L501.4021, L500.2500, L100.0100 ####[facility] [address], [address] IG% 0.500 Normal 0.0-0.[address] [facility] Comment on above: Result Comment: IG% - Immature Granulocytes (promyelocytes, myelocytes andmetamyelocytes) > 1% indicates that a LEFT SHIFT is Present. Performed By: #### L 300.3900, L501.4021, L500.2500, L100.0100 ####[facility] [address], [address] Lymphocytes/100 WBC (Bld) 18.4 % Low 19-[address] [facility] Comment on above: Performed By: #### L 300.3900, L501.4021, L500.2500, L100.0100 ####[facility] [address] [place], [address] MCH (RBC) [Entitic mass] 30.0 pg Normal 27.0-32.[address] [facility] Comment on above: Performed By: #### L 300.3900, L501.4021, L500.2500, L100.0100 ####[facility] [address], [address] MCHC (RBC) [Mass/Vol] 32.3 g/dL Normal 32-36 [facility] Comment on above: Performed By: #### L 300.3900, L501.4021, L500.2500, L100.0100 ####[facility] [address], [address] MCV (RBC) [Entitic vol] 92.8 fL Normal 81-99 [facility] Comment on above: Performed By: #### L 300.3900, L501.4021, L500.2500, L100.0100 ####[facility] [address], [address] Monocytes/100 WBC (Bld) 8.2 % Normal 0-10 [facility] Comment on above: Performed By: #### L 300.3900, L501.4021, L500.2500, L100.0100 ####[facility] [address], [address] Neutrophils/100 WBC (Bld) 70.1 % High 47-[address] [facility] Comment on above: Performed By: #### L 300.3900, L501.4021, L500.2500, L100.0100 ####[facility] [address], [address] Nucleated RBC (Bld) [#/Vol] 0 10*3/uL Normal 0-[address] [facility] Comment on above: Performed By: #### L 300.3900, L501.4021, L500.2500, L100.0100 ####[facility] [address], [address] Platelet mean volume (Bld) [Entitic vol] 9.6 fL Normal 6.2-12.[address] [facility] Comment on above: Performed By: #### L 300.3900, L501.4021, L500.2500, L100.0100 ####[facility] [address], [address] Platelets (Bld) [#/Vol] 337 10*3/uL Normal 150-[address] [facility] Comment on above: Performed By: #### L 300.3900, L501.4021, L500.2500, L100.0100 ####[facility] [address], [address] RBC (Bld) [#/Vol] 4.14 10*6/uL Low 4.2-5.4 [facility] Comment on above: Performed By: #### L 300.3900, L501.4021, L500.2500, L100.0100 ####[facility] [address] [place], [address] RDW SD 44.8 fl High 35.1-43.[address] [facility] Comment on above: Performed By: #### L 300.3900, L501.4021, L500.2500, L100.0100 ####[facility] [address] [place], [address] WBC (Bld) [#/Vol] 7.5 10*3/uL Normal 4.4-11.0 [facility] Comment on above: Performed By: #### L 300.3900, L501.4021, L500.2500, L100.0100 ####[facility] [address] [place], [address] CO2 (BldV) [Moles/Vol]Ordere d By: Layla Craig on 08-30-2024 CO2 [Moles/Vol] 31 mmol/L 23-[address] [facility] Calcium [Mass/Vol]Ordered By : Ayaz Hinton on 08-30-2024 Serum or plasma calcium measurement (mass/volume) 9.9 mg/dL 7.6-11.[address] [facility] Carbon dioxide, total [Moles /volume] in Central venous bloodOrdered By: Ayaz Hinton on 08-30-2024 Carbon dioxide, total [Moles/volume] in Central venous blood 28.0 mmol/L 21.0-32.[address] [facility] Chest 1 Viewon 08-30-2024 Chest 1 View Normal [facility] Chloride assayOrdered By: Freddie Hinton on 08-30-2024 Chloride assay 95 mmol/L Low 98-[address] [facility] Clarity (U)Ordered By: Dannie Hinton on 08-30-2024 Urine clarity Cloudy Clear [facility] Color (U)Ordered By: Ayaz Hinton on 08-30-2024 Urine color determination Yellow Yellow [facility] Creatinine [Mass/Vol]Ordered By: Ayaz Hinton on 08-30-2024 Serum creatinine measurement (mass/volume) 1.06 mg/dL 0.70-1.[address] [facility] Echo Complete W/ Contraston 08-30-2024 Echo Complete W/ Contrast Normal [facility] Emergency Department Summary on 08-30-2024 Emergency Department Summary Normal [facility] Eosinophil percentageOrdered By: Ayaz Hinton on 08-30-2024 Eosinophil percentage 1.9 % 0-5 [facility] Erythrocyte distribution wid th (RBC) [Ratio]Ordered By: Ayaz Hinton on 08-30-2024 Erythrocyte distribution width ratio 13.1 % 11.6-14.[address] [facility] Erythrocyte distribution width standard deviation 44.8 fl High 35.1-43.[address] [facility] Estimation of creatinine mary ellen aranceOrdered By: Ayaz Hinton on 08-30-2024 Estimation of creatinine clearance 32.40 ml/min Low 50-[address] [facility] GFR/1.73 sq M.predicted jane g non-blacks MDRD (S/P/Bld) [Vol rate/Area]Ordered By: Ayaz Hinton on 08-30-2024 Glomerular filtration rate (GFR) estimation/1.73 sq m using serum, plasma, or whole b 51 Low >[address] [facility] Glucose [Mass/Vol]Ordered By : Ayaz Hinton on 08-30-2024 Serum glucose measurement (mass/volume) 123 mg/dL High 70-[address] [facility] H AND P Exam - Hospitaliston 08-30-2024 H&P Exam - Hospitalist Normal [facility] HIP, UNI W/ Pelvis 2-3 Views on 08-30-2024 HIP, UNI W/ Pelvis 2-3 Views Normal [facility] Hematocrit Auto (Bld) [Volum e fraction]Ordered By: Ayaz Hinton on 08-30-2024 Automated blood hematocrit (percentage) 38.4 % 37-[address] [facility] Hemoglobin measurementOrdere d By: Ayaz Hinton on 08-30-2024 Hemoglobin measurement 12.4 g/dL 12.0-15.0 [facility] Immature granulocytes/100 WB C Auto (Bld)Ordered By: Ayaz Hinton on 08-30-2024 Automated immature granulocyte percentage 0.500 % 0.0-0.[address] [facility] International normalized rat io (INR) calculationOrdered By: Ayaz Hinton on 08-30-2024 International normalized ratio (INR) calculation 1.[address] [facility] Ketones Test strip Ql (U)Ord ered By: Ayaz Hinton on 08-30-2024 Ketones Ql (U) Negative Negative [facility] Knee 1 or 2 Viewson 08-31-19 25 Knee 1 or 2 Views Normal [facility] L499.0042on 08-30-2024 Trop T High Sen 37 ng/L High <=[address] [facility] Comment on above: Performed By: #### L 499.0042 ####[facility] [address] [place], [address] L499.0043on 08-30-2024 Trop T High Sen 38 ng/L High <=[address] [facility] Comment on above: Performed By: #### L 499.0043 ####[facility] [address] [place], [address] L501.4021on 08-30-2024 Trop T High Sen 26 ng/L High <=[address] [facility] Comment on above: Result Comment: Hemo lysis present, Results??could be affected.?? Performed By: #### L 300.3900, L501.4021, L500.2500, L100.0100 ####[facility] [address] [place], [address] Leukocyte esterase Test stri p Ql (U)Ordered By: Ayaz Hinton on 08-30-2024 Urine leukocyte esterase detection by dipstick 100 /ul High Negative [facility] Lymphocytes Auto (Unsp spec) [#/Vol]Ordered By: Ayaz Hinton on 08-30-2024 Absolute lymphocyte count 1.38 X10^3/uL 0.83-4.[address] [facility] Lymphocytes/100 WBC Auto (Un sp spec)Ordered By: Ayaz Hinton on 08-30-2024 Automated lymphocyte count as percentage of total leukocytes 18.4 % Low 19-[address] [facility] MCV (RBC) [Entitic vol]Order ed By: Ayaz Hinton on 08-30-2024 MCV (mean corpuscular volume) determination 92.8 fL 81-[address] [facility] Mean corpuscular hemoglobin (MCH) determinationOrdered By: Ayaz Hinton on 08-30-2024 Mean corpuscular hemoglobin (MCH) determination 30.0 pg 27.0-32.[address] [facility] Mean corpuscular hemoglobin concentration (MCHC) determinationOrdered By: Ayaz Hinton on 08-30-2024 Mean corpuscular hemoglobin concentration (MCHC) determination 32.3 g/dL 32-[address] [facility] Mean platelet volume determi nationOrdered By: Ayaz Hinton on 08-30-2024 Mean platelet volume determination 9.6 fl 6.2-12.[address] [facility] Measurement, pHOrdered By: Julien Craig on 08-30-2024 pH (Unsp spec) 7.50 [pH] High 7.35-7.[address] [facility] Microscopic analysis of urin e for red blood cells (RBC)Ordered By: Ayaz Hinton on 08-30-2024 Microscopic analysis of urine for red blood cells (RBC) 0 SEEN /hpf 0-[address] [facility] Monocyte percentageOrdered B y: Ayaz Hinton on 08-30-2024 Monocyte percentage 8.2 % 0-10 [facility] Mucus LM Ql (Urine sed)Order ed By: Ayaz Hinton on 08-30-2024 Mucus Ql (Urine sed) 1+ /hpf [facility] Neutrophil percentageOrdered By: Ayaz Hinton on 08-30-2024 Neutrophil percentage 70.1 % High 47-70 [facility] Nitrite Test strip Ql (U)Ord ered By: Ayaz Hinton on 08-30-2024 Nitrite Ql (U) Negative Negative [facility] No Panel InformationOrdered By: Layla Craig on 08-30-[address] [facility] R Radial [facility] Not entered [facility] Room Air [facility] 16:51:[address] [facility] craig [facility] Yes [facility] Nucleated red blood cell per centageOrdered By: Ayaz Hinton on 08-30-2024 Nucleated red blood cell percentage 0 % 0-[address] [facility] Partial Thromboplast Timeon 08-30-2024 aPTT Coag (Bld) [Time] 32.4 s Normal 24.1-36.2 [facility] Comment on above: Performed By: #### L 300.3900, L300.4310 ####[facility] [address] [place], [place], [id number] Platelet countOrdered By: Freddie Hinton on 08-30-2024 Platelet count 337 K/mm3 150-[address] [facility] Potassium (Unsp spec) [Mass/ Vol]Ordered By: Ayaz Hinton on 08-30-2024 Potassium measurement (mass/volume) 4.2 mmol/L 3.3-5.[address] [facility] Protein Test strip Ql (U)Ord ered By: Ayaz Hinton on 08-30-2024 Protein Ql (U) 30 mg/dl High Negative [facility] Urine protein assay by test strip, semi-quantitative 30 mg/dl High Negative [facility] Prothrombin Time w/INRon INR Coag (PPP) [Relative time] 1.0 {INR} Normal [facility] Comment on above: Performed By: #### L 300.3900, L300.4310 ####[facility] [address] [place], [place], [id number] PT Coag (PPP) [Time] 13.2 s Normal 11.7-14.9 [facility] Comment on above: Performed By: #### L 300.3900, L300.4310 ####[facility] [address] [place], [address] INR [address] [facility] Comment on above: Order Comment: REDRA W. PREVIOUS SPECIMEN REJECTED DUE TOCLOTTED. 08/30/24 1159 Rosy Salas. Result Comment: Canc elled via OM: Unable to obtain specimen Performed By: #### L 300.3900 ####[facility] [address] [place], [address] PROTIME Normal 11.7-14.[address] [facility] Comment on above: Order Comment: REDRA W. PREVIOUS SPECIMEN REJECTED DUE TOCLOTTED. 08/30/24 1159 Rosy Salas. Result Comment: Canc elled via OM: Unable to obtain specimen Performed By: #### L 300.3900 ####[facility] [address] [place], [address] INR [address] [facility] Comment on above: Result Comment: This specimen has been REJECTED due to Laboratory criteria:Clotted.TAD has been notified of need of recollection.08/30/24 1159 Rosy Salas Performed By: #### L 300.3900, L501.4021, L500.2500, L100.0100 ####[facility] [address] [place], [address] PROTIME Normal 11.7-14.[address] [facility] Comment on above: Result Comment: This specimen has been REJECTED due to Laboratory criteria:Clotted.TAD has been notified of need of recollection.08/30/24 1159 Rosy Salas Performed By: #### L 300.3900, L501.4021, L500.2500, L100.0100 ####[facility] [address] [place], [address] Prothrombin timeOrdered By: Ayaz Hinton on 08-30-2024 PT Coag (PPP) [Time] 13.2 s 11.7-14.9 [facility] Prothrombin time 13.2 SECONDS 11.7-14.9 [facility] RBC Auto (Bld) [#/Vol]Ordere d By: Ayaz Hinton on 08-30-2024 Automated blood erythrocyte count 4.14 M/mm3 Low 4.2-5.[address] [facility] STROKE Brain/Head without Co nton 08-30-2024 STROKE Brain/Head without Cont Normal [facility] STROKE CTA Head AND Neck W/C onon 08-30-2024 STROKE CTA Head AND Neck W/Con Normal [facility] Sodium levelOrdered By: Marquise Hinton on 08-30-2024 Sodium level 136 mmol/L 133-[address] [facility] Specific gravity (U) [Rel de nsity]Ordered By: Ayaz Hinton on 08-30-2024 Urine specific gravity measurement 1.010 1.002-1.[address] [facility] Squamous epithelial cells de tection in urine sediment by light microscopyOrdered By: Ayaz Hinton on 08-30-2024 Epithelial cells.squamous LM Ql (Urine sed) 0-5 SEEN /hpf 5-[address] [facility] TSH DL <= 0.005 mIU/L QnOrde red By: Layla Craig on 08-30-2024 TSH Qn 0.881 uIU/mL 0.300-4.[address] [facility] Thyroid Stim Hormone (TSH)on 08-30-2024 TSH 0.881 uIU/mL Normal 0.300-4.[address] [facility] Comment on above: Performed By: #### L 503.0106, L501.9520, L503.5510 ####[facility] [address] [place], [address] Total carbon dioxide measure mentOrdered By: Layla Craig on 08-30-2024 CO2 [Moles/Vol] 37 mmol/L [facility] Troponin T.cardiac High sens itivity method [Mass/Vol]Ordered By: Ayaz Hinton on 08-30-2024 Troponin T.cardiac [Mass/volume] in Serum or Plasma by High sensitivity method 26 ng/L High <[address] [facility] Troponin T.cardiac [Mass/vol ume] in Serum or Plasma by High sensitivity methodOrdered By: Ayaz Hinton on 08-30-2024 Troponin T.cardiac High sensitivity method [Mass/Vol] 38 ng/L High <[address] [facility] Troponin T.cardiac High sensitivity method [Mass/Vol] 37 ng/L High <[address] [facility] Troponin T.cardiac High sensitivity method [Mass/Vol] 26 ng/L High <[address] [facility] Unidentified crystals LM.HPF (Urine sed) [#/Area]Ordered By: Ayaz Hinton on 08-30-2024 Urine sediment unidentified crystal count by microscopy (number/high powered field) See comment None Seen [facility] Urea nitrogen [Mass/Vol]Orde red By: Ayaz Hinton on 08-30-2024 Serum or plasma urea nitrogen measurement (mass/volume) 31 mg/dL High 4-[address] [facility] Urinalysis, Completeon 08-30 BACTERIA 1+ /hpf Normal None Seen [facility] Comment on above: Order Comment: MARV CTOR TO SPECIFY Performed By: #### L 400.0001 ####[facility] [address] [facility] [address] CRYSTAL,OTHER Normal None Seen [facility] Comment on above: Order Comment: MARV CTOR TO SPECIFY Result Comment: 2+ S TARCH CRYSTALS Performed By: #### L 400.0001 ####[facility] [address] [place], [address] EPI,SQUAMOUS 0-5 SEEN Normal 5-[address] [facility] Comment on above: Order Comment: MARV CTOR TO SPECIFY Performed By: #### L 400.0001 ####[facility] [address] [place], [address] Mucus Ql (Urine sed) 1+ /hpf Normal [facility] Comment on above: Order Comment: MARV CTOR TO SPECIFY Performed By: #### L 400.0001 ####[facility] [address] [place], [address] WBC 0-5 SEEN Normal 0-[address] [facility] Comment on above: Order Comment: MARV CTOR TO SPECIFY Performed By: #### L 400.0001 ####[facility] [address] [place] [address] RBC 0 SEEN Normal 0-[address] [facility] Comment on above: Order Comment: COLLE CTOR TO SPECIFY Performed By: #### L 400.0001 ####[facility] [address] [place] [address] Urine Drug Screen (VISTA)on 08-30-2024 AMPHETAMINES Normal <1000 ng/mL [facility] Comment on above: Result Comment: BOBBI ENT DISCHARGED. Performed By: #### L 505.5000 ####[facility] [address] [place] [address] BARBITIURATES Normal < 200 ng/mL [facility] Comment on above: Result Comment: BOBBI ENT DISCHARGED. Performed By: #### L 505.5000 ####[facility] [address] [place] [address] BENZODIAZIPINE Normal < 200 ng/mL [facility] Comment on above: Result Comment: BOBBI ENT DISCHARGED. Performed By: #### L 505.5000 ####[facility] [address] [place] [address] BUP Ur Drug Scr Normal < 200 ng/mL [facility] Comment on above: Result Comment: BOBBI ENT DISCHARGED. Performed By: #### L 505.5000 ####[facility] [address] [place] [address] COCAINE Normal < 300 ng/mL [facility] Comment on above: Result Comment: BOBBI ENT DISCHARGED. Performed By: #### L 505.5000 ####[facility] [address] [place] [address] Fentanyl Normal [facility] Comment on above: Result Comment: BOBBI ENT DISCHARGED. Performed By: #### L 505.5000 ####[facility] [address] [place] [address] METHADONE Normal < 300 ng/mL [facility] Comment on above: Result Comment: BOBBI ENT DISCHARGED. Performed By: #### L 505.5000 ####[facility] [address] [place] [address] OPIATES Normal < 300 ng/mL [facility] Comment on above: Result Comment: BOBBI ENT DISCHARGED. Performed By: #### L 505.5000 ####[facility] [address] [place] [address] OXYCODONE Normal < 100 ng/mL [facility] Comment on above: Result Comment: BOBBI ENT DISCHARGED. Performed By: #### L 505.5000 ####[facility] [address] [place] [address] PCP Normal < 25 ng/mL [facility] Comment on above: Result Comment: BOBBI ENT DISCHARGED. Performed By: #### L 505.5000 ####[facility] [address] [place] [address] THC Normal < 50 ng/mL [facility] Comment on above: Result Comment: BOBBI ENT DISCHARGED. Performed By: #### L 505.5000 ####[facility] [address] [place] [address] Urine blood detectionOrdered By: Ayaz Hinton on 08-30-2024 Urine blood detection 10 /ul High Negative [facility] Urine clarityOrdered By: Kota Hinton on 08-30-2024 Clarity (U) Cloudy Clear [facility] Urine color determinationOrd ered By: Ayaz Hinton on 08-30-2024 Color (U) Yellow Yellow [facility] Urine glucose detectionOrder ed By: Ayaz Hinton on 08-30-2024 Glucose Ql (U) Normal mg/dl Normal [facility] Urine glucose detection Normal mg/dl Normal [facility] Urine leukocyte esterase det ection by dipstickOrdered By: Ayaz Hinton on 08-30-2024 Leukocyte esterase Test strip Ql (U) 100 /ul High Negative [facility] Urine pHOrdered By: Ayaz amaro on 08-30-2024 pH (U) 8.0 [pH] 5.0 - 8.[address] [facility] Urine sediment bacteria coun t by microscopy (number/high power field)Ordered By: Ayaz Hinton on 08-30-2024 Bacteria LM.HPF (Urine sed) [#/Area] 1 /[HPF] None Seen [facility] Urine sediment bacteria count by microscopy (number/high power field) 1+ /hpf [facility] Urine sediment unidentified crystal count by microscopy (number/high powered field)Ordered By: Ayaz Hinton on 08-30-2024 Unidentified crystals LM.HPF (Urine sed) [#/Area] See comment None Seen [facility] Urine specific gravity measu rementOrdered By: Ayaz Hinton on 08-30-2024 Specific gravity (U) [Rel density] 1.010 1.002-1.[address] [facility] Urine total bilirubin detect ion by test stripOrdered By: Ayaz Hinton on 08-30-2024 Urine total bilirubin detection by test strip Negative Negative [facility] Urine urobilinogen measureme ntOrdered By: Ayaz Hinton on 08-30-2024 Urobilinogen Ql (U) Normal mg/dl Normal [facility] Venous Blood Gason 5 Blood Gas Type ASHER Normal [facility] Comment on above: Performed By: #### L 9000.0810 ####[facility] [address] [place], [address] CO2 [Moles/Vol] 31 mmol/L Normal 23-[address] [facility] Comment on above: Performed By: #### L 9000.0810 ####[facility] [address] [place], [address] HCO3 (Bld) [Moles/Vol] 30 mmol/L High 22-26 [facility] Comment on above: Performed By: #### L 9000.0810 ####[facility] [address] [place], [address] O2 Delivery Dev Not entered [facility] Comment on above: Performed By: #### L 9000.0810 ####[facility] [address] [place], [address] Read Back By Yes [facility] Comment on above: Performed By: #### L 9000.0810 ####[facility] [address] [place], [address] Results To craig [facility] Comment on above: Performed By: #### L 9000.0810 ####[facility] [address] [place], [address] SITE Not entered [facility] Comment on above: Performed By: #### L 9000.0810 ####[facility] [address] [place], [address] Time Given 16:51:18 [facility] Comment on above: Performed By: #### L 9000.0810 ####[facility] [address] [place], [address] VBG BE 10 mmol/L High -1.0-3.[address] [facility] Comment on above: Performed By: #### L 9000.0810 ####[facility] [address] [place], [address] VBG pCO2 22.7 mmHg Low 41-[address] [facility] Comment on above: Performed By: #### L 9000.0810 ####[facility] [address] [place], [address] VBG pH 7.73 Invalid Interpretation Code 7.32-7.[address] [facility] Comment on above: Performed By: #### L 9000.0810 ####[facility] [address] [place], [address] VBG PO2 170 mmHg High 25-[address] [facility] Comment on above: Performed By: #### L 9000.0810 ####[facility] [address] [place], [address] VBG SO2 100 High 50-[address] [facility] Comment on above: Performed By: #### L 9000.0810 ####[facility] [address] [place], [place], [id number] Venous blood ammonia measure mentOrdered By: Layla Craig on 08-30-2024 Ammonia (P) [Moles/Vol] 14.8 umol/L 11-[address] [facility] Venous blood base excess fran surementOrdered By: Layla Craig on 08-30-2024 Base excess Calc (BldV) [Moles/Vol] 10 mmol/L High -1.0-3.[address] [facility] Venous blood bicarbonate fran surementOrdered By: Layla Craig on 08-30-2024 HCO3 (Bld) [Moles/Vol] 30 mmol/L High 22-26 [facility] Venous blood pH measurementO rdered By: Layla Craig on 08-30-2024 pH (BldV) 7.73 [pH] High 7.32-7.[address] [facility] Venous blood partial pressur e of carbon dioxide measurementOrdered By: Layla Craig on 08-30-2024 CO2 (BldV) [Partial pressure] 22.7 mm[Hg] Low 41-[address] [facility] Venous blood partial pressur e of oxygen measurementOrdered By: Layla Craig on 08-30-2024 Oxygen (BldV) [Partial pressure] 170 mm[Hg] High 25-[address] [facility] Vitamin B12on 08-30-2024 Cobalamin (Vitamin B12) [Mass/Vol] 338 pg/mL Normal 180-[address] [facility] Comment on above: Performed By: #### L 503.0106, L501.9520, L503.5510 ####[facility] [address] [place], [place], [address] Vitamin B12 ser/plasOrdered By: Layla Craig on 08-30-2024 Cobalamin (Vitamin B12) [Mass/Vol] 338 pg/mL 180-[address] [facility] White blood cell (WBC) count Ordered By: Ayaz Hinton on 08-30-2024 White blood cell (WBC) count 7.5 K/mm3 4.4-11.[address] [facility] White blood cell countOrdere d By: Ayaz Hinton on 08-30-2024 White blood cell count 0-5 SEEN /hpf 0-[address] [facility] White blood cell count 0-5 SEEN /hpf 5-[address] [facility] aPTT Coag (PPP) [Time]Ordere d By: Ayaz Hinton on 08-30-2024 Activated partial thromboplastin time (aPTT) in platelet poor plasma by coagulation a 32.4 Seconds 24.1-36.[address] [facility] pH (U)Ordered By: Ayaz garcia on 08-30-2024 Urine pH 8.0 5.0 - 8.[address] [facility] Basic Metabolic Profile (BMP )on 07-29-2024 BUN Normal 7-[address] [facility] Comment on above: Result Comment: Canc elled via OM: Order cancelled - Patient discharged Performed By: #### L 100.0100, L500.2500 ####[facility] [address] [facility] [address] BUN/CRE Normal 10-[address] [facility] Comment on above: Result Comment: Canc elled via OM: Order cancelled - Patient discharged Performed By: #### L 100.0100, L500.2500 ####[facility] [address] [place], [address] Calcium Normal 8.5-10.[address] [facility] Comment on above: Result Comment: Canc elled via OM: Order cancelled - Patient discharged Performed By: #### L 100.0100, L500.2500 ####[facility] [address] [place], [address] CL Normal 98-[address] [facility] Comment on above: Result Comment: Canc elled via OM: Order cancelled - Patient discharged Performed By: #### L 100.0100, L500.2500 ####[facility] [address] [place], [address] CO2 Normal 21.0-32.[address] [facility] Comment on above: Result Comment: Canc elled via OM: Order cancelled - Patient discharged Performed By: #### L 100.0100, L500.2500 ####[facility] [address] [place], [address] CREAT,SERUM Normal 0.55-1.[address] [facility] Comment on above: Result Comment: Canc elled via OM: Order cancelled - Patient discharged Performed By: #### L 100.0100, L500.2500 ####[facility] [address] [place], [address] eGFR Normal >[address] [facility] Comment on above: Result Comment: Canc elled via OM: Order cancelled - Patient discharged Performed By: #### L 100.0100, L500.2500 ####[facility] [address] [place], [address] EST GFR - AA Normal >[address] [facility] Comment on above: Result Comment: Canc elled via OM: Order cancelled - Patient discharged Performed By: #### L 100.0100, L500.2500 ####[facility] [address] [place], [address] GAP Normal 5-[address] [facility] Comment on above: Result Comment: Canc elled via OM: Order cancelled - Patient discharged Performed By: #### L 100.0100, L500.2500 ####[facility] [address] [place], [address] GLU Normal 74-[address] [facility] Comment on above: Result Comment: Canc elled via OM: Order cancelled - Patient discharged Performed By: #### L 100.0100, L500.2500 ####[facility] [address] [place], [address] Potassium Normal 3.5-5.[address] [facility] Comment on above: Result Comment: Canc elled via OM: Order cancelled - Patient discharged Performed By: #### L 100.0100, L500.2500 ####[facility] [address] [place], [address] Basic Metabolic Profile (BMP) Normal 136-[address] [facility] Comment on above: Result Comment: Canc elled via OM: Order cancelled - Patient discharged Performed By: #### L 100.0100, L500.2500 ####[facility] [address] [place], [address] CBC W/Diff, Automatedon 03-2 0-2024 Absolute Neut Normal 2.0-7.[address] [facility] Comment on above: Result Comment: Canc elled via OM: Order cancelled - Patient discharged Performed By: #### L 100.0100, L500.2500 ####[facility] [address] [place], [address] HCT Normal 37-[address] [facility] Comment on above: Result Comment: Canc elled via OM: Order cancelled - Patient discharged Performed By: #### L 100.0100, L500.2500 ####[facility] [address] [place], [address] HGB Normal 12.0-15.[address] [facility] Comment on above: Result Comment: Canc elled via OM: Order cancelled - Patient discharged Performed By: #### L 100.0100, L500.2500 ####[facility] [address] [place], [address] MCH Normal 27.0-32.[address] [facility] Comment on above: Result Comment: Canc elled via OM: Order cancelled - Patient discharged Performed By: #### L 100.0100, L500.2500 ####[facility] [address] [place], [address] MCHC Normal 32-[address] [facility] Comment on above: Result Comment: Canc elled via OM: Order cancelled - Patient discharged Performed By: #### L 100.0100, L500.2500 ####[facility] [address] [place], [address] MCV Normal 81-[address] [facility] Comment on above: Result Comment: Canc elled via OM: Order cancelled - Patient discharged Performed By: #### L 100.0100, L500.2500 ####[facility] [address] [place], [address] NEUT% Normal 47-[address] [facility] Comment on above: Result Comment: Canc elled via OM: Order cancelled - Patient discharged Performed By: #### L 100.0100, L500.2500 ####[facility] [address] [place], [address] PLT Normal 150-[address] [facility] Comment on above: Result Comment: Canc elled via OM: Order cancelled - Patient discharged Performed By: #### L 100.0100, L500.2500 ####[facility] [address] [place], [address] RBC Normal 4.2-5.[address] [facility] Comment on above: Result Comment: Canc elled via OM: Order cancelled - Patient discharged Performed By: #### L 100.0100, L500.2500 ####[facility] [address] [place], [address] RDW CV Normal 11.6-14.[address] [facility] Comment on above: Result Comment: Canc elled via OM: Order cancelled - Patient discharged Performed By: #### L 100.0100, L500.2500 ####[facility] [address] [place], [address] RDW SD Normal 35.1-43.[address] [facility] Comment on above: Result Comment: Canc elled via OM: Order cancelled - Patient discharged Performed By: #### L 100.0100, L500.2500 ####[facility] [address] [place], [place], [id number] WBC Normal 4.4-11.[address] [facility] Comment on above: Result Comment: Canc elled via OM: Order cancelled - Patient discharged Performed By: #### L 100.0100, L500.2500 ####[facility] [address] [place], [place], [id number] 12 Lead EKG performed by BMS on 07-26-2024 12 Lead EKG performed by BMS Normal [facility] Cardiology Visit Reporton Cardiology Visit Report Normal [facility] Absolute lymphocyte countOrd ered By: Aleks Marshall on 07-22-2024 Lymphocytes Auto (Unsp spec) [#/Vol] 1.46 10*3/uL 0.83-4.[address] [facility] Absolute neutrophil countOrd ered By: Aleks Marshall on 07-22-2024 Absolute neutrophil count 1.6 X10^3/uL Low 2.0-7.[address] [facility] Anion gap [Moles/Vol]Ordered By: Aleks Marshall on 07-22-2024 Anion gap in Serum or Plasma 12 09-[address] [facility] Anion gap in Serum or Plasma Ordered By: Aleks Marshall on 07-22-2024 Anion gap [Moles/Vol] 12 mmol/L 09-23 [facility] Automated lymphocyte count a s percentage of total leukocytesOrdered By: Aleks Marshall on 07-22-2024 Lymphocytes/100 WBC Auto (Unsp spec) 35.4 % 19-[address] [facility] BUN/creatinine ratioOrdered By: Aleks Marshall on 07-22-2024 Urea nitrogen/Creatinine [Mass ratio] 37.8 mg/mg High 10- [facility] BUN/creatinine ratio 37.8 RATIO High 10-20 [facility] Basic Metabolic Profile (BMP )on 07-22-2024 EST GFR - AA TNP Normal >[address] [facility] Comment on above: Performed By: #### L 100.0100, L500.2500 ####[facility] [address], [address] Basophil percentageOrdered B y: Aleks Marshall on 07-22-2024 Basophils/100 WBC (Bld) 0.5 % 0-1 [facility] Basophil percentage 0.5 % 0-1 [facility] CBC W/Diff, Automatedon 07-10 Absolute Lymph 1.46 X10 3/uL Normal 0.83-4.[address] [facility] Comment on above: Performed By: #### L 100.0100, L500.2500 ####[facility] [address], [address] Absolute Neut 1.6 X10 3/uL Low 2.0-7.[address] [facility] Comment on above: Performed By: #### L 100.0100, L500.2500 ####[facility] [address], [address] Basophils/100 WBC (Bld) 0.5 % Normal 0-1 [facility] Comment on above: Performed By: #### L 100.0100, L500.2500 ####[facility] [address] [place], [address] Eosinophils/100 WBC (Bld) 9.0 % High 0-[address] [facility] Comment on above: Performed By: #### L 100.0100, L500.2500 ####[facility] [address], [address] Erythrocyte distribution width (RBC) [Ratio] 14.8 % High 11.6-14.[address] [facility] Comment on above: Performed By: #### L 100.0100, L500.2500 ####[facility] [address], [address] Hematocrit (Bld) [Volume fraction] 26.5 % Low 37-[address] [facility] Comment on above: Performed By: #### L 100.0100, L500.2500 ####[facility] [address] [place], [address] Hemoglobin (Bld) [Mass/Vol] 8.4 g/dL Low 12.0-15.[address] [facility] Comment on above: Performed By: #### L 100.0100, L500.2500 ####[facility] [address], [address] IG% 0.500 Normal 0.0-0.[address] [facility] Comment on above: Result Comment: IG% - Immature Granulocytes (promyelocytes, myelocytes andmetamyelocytes) > 1% indicates that a LEFT SHIFT is Present. Performed By: #### L 100.0100, L500.2500 ####[facility] [address] [place], [address] Lymphocytes/100 WBC (Bld) 35.4 % Normal 19-[address] [facility] Comment on above: Performed By: #### L 100.0100, L500.2500 ####[facility] [address] [place], [address] MCH (RBC) [Entitic mass] 30.3 pg Normal 27.0-32.[address] [facility] Comment on above: Performed By: #### L 100.0100, L500.2500 ####[facility] [address], [address] MCHC (RBC) [Mass/Vol] 31.7 g/dL Low 32-36 [facility] Comment on above: Performed By: #### L 100.0100, L500.2500 ####[facility] [address], [address] MCV (RBC) [Entitic vol] 95.7 fL Normal 81-99 [facility] Comment on above: Performed By: #### L 100.0100, L500.2500 ####[facility] [address] [place], [address] Monocytes/100 WBC (Bld) 15.3 % High 0-10 [facility] Comment on above: Performed By: #### L 100.0100, L500.2500 ####[facility] [address] [place], [address] Neutrophils/100 WBC (Bld) 39.3 % Low 47-[address] [facility] Comment on above: Performed By: #### L 100.0100, L500.2500 ####[facility] [address] [place], [address] Nucleated RBC (Bld) [#/Vol] 0 10*3/uL Normal 0-[address] [facility] Comment on above: Performed By: #### L 100.0100, L500.2500 ####[facility] [address], [address] Platelet mean volume (Bld) [Entitic vol] 9.8 fL Normal 6.2-12.[address] [facility] Comment on above: Performed By: #### L 100.0100, L500.2500 ####[facility] [address] [place], [address] Platelets (Bld) [#/Vol] 210 10*3/uL Normal 150-[address] [facility] Comment on above: Performed By: #### L 100.0100, L500.2500 ####[facility] [address] [place], [address] RBC (Bld) [#/Vol] 2.77 10*6/uL Low 4.2-5.4 [facility] Comment on above: Performed By: #### L 100.0100, L500.2500 ####[facility] [address], [address] RDW SD 52.6 fl High 35.1-43.[address] [facility] Comment on above: Performed By: #### L 100.0100, L500.2500 ####[facility] [address] [place], [address] WBC (Bld) [#/Vol] 4.1 10*3/uL Low 4.4-11.0 [facility] Comment on above: Performed By: #### L 100.0100, L500.2500 ####[facility] [address] [place], [address] Calcium [Mass/Vol]Ordered By : Aleks Marshall on 07-22-2024 Serum or plasma calcium measurement (mass/volume) 9.3 mg/dL 7.6-11.[address] [facility] Carbon dioxide, total [Moles /volume] in Central venous bloodOrdered By: Aleks Marshall on 07-22-2024 CO2 [Moles/Vol] 25.1 mmol/L 21.0-32.[address] [facility] Carbon dioxide, total [Moles/volume] in Central venous blood 25.1 mmol/L 21.0-32.[address] [facility] Chloride assayOrdered By: Yobany Marshall on 07-22-2024 Chloride [Moles/Vol] 101 mmol/L 98-108 [facility] Chloride assay 101 mmol/L 98-[address] [facility] Creatinine [Mass/Vol]Ordered By: Aleks Marshall on 07-22-2024 Serum creatinine measurement (mass/volume) 0.76 mg/dL 0.70-1.[address] [facility] Eosinophil percentageOrdered By: Aleks Marshall on 07-22-2024 Eosinophils/100 WBC (Bld) 9.0 % High 0-[address] [facility] Eosinophil percentage 9.0 % High 0-5 [facility] Erythrocyte distribution wid th (RBC) [Ratio]Ordered By: Aleks Marshall on 07-22-2024 Erythrocyte distribution width ratio 14.8 % High 11.6-14.[address] [facility] Erythrocyte distribution wid th ratioOrdered By: Aleks Marshall on 07-22-2024 Erythrocyte distribution width (RBC) [Ratio] 14.8 % High 11.6-14.[address] [facility] Erythrocyte distribution wid th standard deviationOrdered By: Aleks Marshall on 07-22-2024 Erythrocyte distribution width (RBC) [Ratio] 52.6 fl High 35.1-43.[address] [facility] Erythrocyte distribution width standard deviation 52.6 fl High 35.1-43.[address] [facility] Estimated glomerular filtrat ion rate (GFR) AmericanOrdered By: Aleks Marshall 07-22-2024 Estimated glomerular filtration rate (GFR) TNP [facility] Estimation of creatinine mary ellen aranceOrdered By: Aleks Marshall 07-22-2024 Estimation of creatinine clearance 44.34 ml/min Low 50-[address] [facility] GFR/1.73 sq M.predicted jane g non-blacks MDRD (S/P/Bld) [Vol rate/Area]Ordered By: Aleks Marshall 07-22-2024 Glomerular filtration rate (GFR) estimation/1.73 sq m using serum, plasma, or whole b 75 >[address] [facility] Glomerular filtration rate ( GFR) estimation/1.73 sq m using serum, plasma, or whole bOrdered By: Aleks Marshall 07-22-2024 GFR/1.73 sq M.predicted among non-blacks MDRD (S/P/Bld) [Vol rate/Area] 75 mL/min/{1.73_m2} >[address] [facility] Glucose [Mass/Vol]Ordered By : Aleks Marshall 07-22-2024 Serum glucose measurement (mass/volume) 86 mg/dL 70-[address] [facility] Hematocrit Auto (Bld) [Volum e fraction]Ordered By: Aleks Marshall 07-22-2024 Hematocrit (Bld) [Volume fraction] 26.5 % Low 37-[address] [facility] Automated blood hematocrit (percentage) 26.5 % Low 37-[address] [facility] Hemoglobin measurementOrdere d By: Aleks Marshall 07-22-2024 Hemoglobin (Bld) [Mass/Vol] 8.4 g/dL Low 12.0-15.[address] [facility] Hemoglobin measurement 8.4 g/dL Low 12.0-15.0 [facility] Immature granulocytes/100 WB C Auto (Bld)Ordered By: Aleks Marshall 07-22-2024 Immature granulocytes/100 WBC (Bld) 0.500 % 0.0-0.[address] [facility] Automated immature granulocyte percentage 0.500 % 0.0-0.[address] [facility] Lymphocytes Auto (Unsp spec) [#/Vol]Ordered By: Aleks Marshall on 07-22-2024 Absolute lymphocyte count 1.46 X10^3/uL 0.83-4.[address] [facility] Lymphocytes/100 WBC Auto (Un sp spec)Ordered By: Aleks Marshall on 07-22-2024 Automated lymphocyte count as percentage of total leukocytes 35.4 % 19-[address] [facility] MCV (RBC) [Entitic vol]Order ed By: Aleks Marshall on 07-22-2024 MCV (mean corpuscular volume) determination 95.7 fL 81-[address] [facility] MCV (mean corpuscular volume ) determinationOrdered By: Aleks Marshall on 07-22-2024 MCV (RBC) [Entitic vol] 95.7 fL 81-99 [facility] Mean corpuscular hemoglobin (MCH) determinationOrdered By: Aleks Marshall 07-22-2024 MCH (RBC) [Entitic mass] 30.3 pg 27.0-32.[address] [facility] Mean corpuscular hemoglobin (MCH) determination 30.3 pg 27.0-32.[address] [facility] Mean corpuscular hemoglobin concentration (MCHC) determinationOrdered By: Aleks Marshall 07-22-2024 Mean corpuscular hemoglobin concentration (MCHC) determination 31.7 g/dL Low 32-[address] [facility] Mean platelet volume determi nationOrdered By: Aleks Marshall on 07-22-2024 Mean platelet volume determination 9.8 fl 6.2-12.[address] [facility] Monocyte percentageOrdered B y: Aleks Marshall on 07-22-2024 Monocytes/100 WBC (Bld) 15.3 % High 0-10 [facility] Monocyte percentage 15.3 % High 0-10 [facility] Neutrophil percentageOrdered By: Aleks Marshall on 07-22-2024 Neutrophils/100 WBC (Bld) 39.3 % Low 47-[address] [facility] Neutrophil percentage 39.3 % Low 47-70 [facility] Nucleated red blood cell per centageOrdered By: Aleks Marshall on 07-22-2024 Nucleated red blood cell percentage 0 % 0-[address] [facility] Platelet countOrdered By: Yobany Marshall on 07-22-2024 Platelets (Bld) [#/Vol] 210 10*3/uL 150-[address] [facility] Platelet count 210 K/mm3 150-[address] [facility] Potassium (Unsp spec) [Mass/ Vol]Ordered By: Aleks Marshall on 07-22-2024 Potassium measurement (mass/volume) 4.2 mmol/L 3.3-5.[address] [facility] Potassium measurement (mass/ volume)Ordered By: Aleks Marshall on 07-22-2024 Potassium (Unsp spec) [Mass/Vol] 4.2 mmol/L 3.3-5.[address] [facility] RBC Auto (Bld) [#/Vol]Ordere d By: Aleks Marshall on 07-22-2024 RBC (Bld) [#/Vol] 2.77 10*6/uL Low 4.2-5.4 [facility] Automated blood erythrocyte count 2.77 M/mm3 Low 4.2-5.[address] [facility] Serum creatinine measurement (mass/volume)Ordered By: Aleks Marshall on 07-22-2024 Creatinine [Mass/Vol] 0.76 mg/dL 0.70-1.20 [facility] Serum glucose measurement (m ass/volume)Ordered By: Aleks Marshall 07-22-2024 Glucose [Mass/Vol] 86 mg/dL 70-99 [facility] Serum or plasma calcium manuel urement (mass/volume)Ordered By: Aleks Marshall 07-22-2024 Calcium [Mass/Vol] 9.3 mg/dL 7.6-11.0 [facility] Serum or plasma urea nitroge n measurement (mass/volume)Ordered By: Aleks Marshall on 07-22-2024 Urea nitrogen [Mass/Vol] 29 mg/dL High 4-[address] [facility] Sodium levelOrdered By: Aleks Marshall 07-22-2024 Sodium [Moles/Vol] 138 mmol/L 133-145 [facility] Sodium level 138 mmol/L 133-[address] [facility] Urea nitrogen [Mass/Vol]Orde red By: Aleks Marshall on 07-22-2024 Serum or plasma urea nitrogen measurement (mass/volume) 29 mg/dL High 4-[address] [facility] White blood cell (WBC) count Ordered By: Aleks Marshall on 07-22-2024 WBC (Bld) [#/Vol] 4.1 10*3/uL Low 4.4-11.0 [facility] White blood cell (WBC) count 4.1 K/mm3 Low 4.4-11.[address] [facility] Chest PA and Lateralon 07-20 Chest PA and Lateral Normal [facility] HH, Hemoglobin AND Hematocri ton 07-19-2024 Hematocrit (Bld) [Volume fraction] 26.4 % Low 37-[address] [facility] Comment on above: Performed By: #### L 100.0600 ####[facility] [address] [place], [address] Hemoglobin (Bld) [Mass/Vol] 8.4 g/dL Low 12.0-15.[address] [facility] Comment on above: Performed By: #### L 100.0600 ####[facility] [address], [address] RESPIRATORY PANEL MOLECULARo n 07-18-2024 RP PANEL Normal [facility] Comment on above: Performed By: #### M 100.638 ####[facility] [address] [place], [address] COVID 19 AG RAPID (ALBERT Kwan)on 07-17-2024 SARS-CoV-2 (COVID-19) RNA RHYS+probe Ql (Unsp spec) Normal [facility] Comment on above: Performed By: #### M 100.505 ####[facility] [address], [address] COVID-19 virus antigen assay Ordered By: Aleks Marshall on 07-17-2024 SARS-CoV-2 (COVID-19) Ag IA.rapid Ql (Resp) [facility] Respiratory pathogens detect ion panel by molecular detection methodOrdered By: Aleks Marshall on 07-17-2024 Respiratory pathogens DNA and RNA panel RHYS+probe (Resp) [facility] HH, Hemoglobin AND Hematocri ton 07-16-2024 Hematocrit (Bld) [Volume fraction] 27.1 % Low 37-[address] [facility] Comment on above: Performed By: #### L 100.0600 ####[facility] [address], [address] Hemoglobin (Bld) [Mass/Vol] 8.6 g/dL Low 12.0-15.[address] [facility] Comment on above: Performed By: #### L 100.0600 ####[facility] [address], [address] Basic Metabolic Profile (BMP )on 07-15-2024 EST GFR - AA TNP Normal >[address] [facility] Comment on above: Performed By: #### L 500.2500, L100.0100 ####[facility] [address], [address] CBC W/Diff, Automatedon Absolute Lymph 1.56 X10 3/uL Normal 0.83-4.[address] [facility] Comment on above: Performed By: #### L 500.2500, L100.0100 ####[facility] [address], [address] Absolute Neut 2.9 X10 3/uL Normal 2.0-7.[address] [facility] Comment on above: Performed By: #### L 500.2500, L100.0100 ####[facility] [address] [place] [place], [address] Basophils/100 WBC (Bld) 1.1 % High 0-1 [facility] Comment on above: Performed By: #### L 500.2500, L100.0100 ####[facility] [address], [address] Eosinophils/100 WBC (Bld) 4.7 % Normal 0-[address] [facility] Comment on above: Performed By: #### L 500.2500, L100.0100 ####[facility] [address] [place], [address] Erythrocyte distribution width (RBC) [Ratio] 15.1 % High 11.6-14.[address] [facility] Comment on above: Performed By: #### L 500.2500, L100.0100 ####[facility] [address], [address] Hematocrit (Bld) [Volume fraction] 26.9 % Low 37-[address] [facility] Comment on above: Performed By: #### L 500.2500, L100.0100 ####[facility] [address] [place], [address] Hemoglobin (Bld) [Mass/Vol] 8.4 g/dL Low 12.0-15.[address] [facility] Comment on above: Performed By: #### L 500.2500, L100.0100 ####[facility] [address] [place], [address] IG% 0.900 Normal 0.0-0.[address] [facility] Comment on above: Result Comment: IG% - Immature Granulocytes (promyelocytes, myelocytes andmetamyelocytes) > 1% indicates that a LEFT SHIFT is Present. Performed By: #### L 500.2500, L100.0100 ####[facility] [address] [place], [address] Lymphocytes/100 WBC (Bld) 28.5 % Normal 19-[address] [facility] Comment on above: Performed By: #### L 500.2500, L100.0100 ####[facility] [address] [place], [address] MCH (RBC) [Entitic mass] 30.0 pg Normal 27.0-32.[address] [facility] Comment on above: Performed By: #### L 500.2500, L100.0100 ####[facility] [address] [place], [address] MCHC (RBC) [Mass/Vol] 31.2 g/dL Low 32-36 [facility] Comment on above: Performed By: #### L 500.2500, L100.0100 ####[facility] [address] [place], [address] MCV (RBC) [Entitic vol] 96.1 fL Normal 81-99 [facility] Comment on above: Performed By: #### L 500.2500, L100.0100 ####[facility] [address] [place], [address] Monocytes/100 WBC (Bld) 11.9 % High 0-10 [facility] Comment on above: Performed By: #### L 500.2500, L100.0100 ####[facility] [address] [place], [address] Neutrophils/100 WBC (Bld) 52.9 % Normal 47-[address] [facility] Comment on above: Performed By: #### L 500.2500, L100.0100 ####[facility] [address], [address] Nucleated RBC (Bld) [#/Vol] 0 10*3/uL Normal 0-[address] [facility] Comment on above: Performed By: #### L 500.2500, L100.0100 ####[facility] [address], [address] Platelet mean volume (Bld) [Entitic vol] 9.3 fL Normal 6.2-12.[address] [facility] Comment on above: Performed By: #### L 500.2500, L100.0100 ####[facility] [address] [place], [address] Platelets (Bld) [#/Vol] 298 10*3/uL Normal 150-[address] [facility] Comment on above: Performed By: #### L 500.2500, L100.0100 ####[facility] [address], [address] RBC (Bld) [#/Vol] 2.80 10*6/uL Low 4.2-5.4 [facility] Comment on above: Performed By: #### L 500.2500, L100.0100 ####[facility] [address], [address] RDW SD 53.6 fl High 35.1-43.[address] [facility] Comment on above: Performed By: #### L 500.2500, L100.0100 ####[facility] [address], [address] WBC (Bld) [#/Vol] 5.5 10*3/uL Normal 4.4-11.0 [facility] Comment on above: Performed By: #### L 500.2500, L100.0100 ####[facility] [address], [address] Stool Occult Blood iFOBon STOB Normal [facility] Comment on above: Performed By: #### M 100.7900 ####[facility] [address], [address] Stool gastrointestinal hemog lobin detection by immunologic methodOrdered By: Aleks Marshall on 07-15-2024 Lower GI hemoglobin IA Ql (Stl) [facility] Basic Metabolic Profile (BMP )on 07-12-2024 BUN Normal 7-[address] [facility] Comment on above: Result Comment: Canc elled via OM: Order cancelled - Patient discharged Performed By: #### L 500.2500, L100.0100 ####[facility] [address], [address] BUN/CRE Normal 10-[address] [facility] Comment on above: Result Comment: Canc elled via OM: Order cancelled - Patient discharged Performed By: #### L 500.2500, L100.0100 ####[facility] [address] [place], [address] CA,Total Normal 8.5-10.[address] [facility] Comment on above: Result Comment: Canc elled via OM: Order cancelled - Patient discharged Performed By: #### L 500.2500, L100.0100 ####[facility] [address] [place], [address] CL Normal 98-[address] [facility] Comment on above: Result Comment: Canc elled via OM: Order cancelled - Patient discharged Performed By: #### L 500.2500, L100.0100 ####[facility] [address] [place], [address] CO2 Normal 21.0-32.[address] [facility] Comment on above: Result Comment: Canc elled via OM: Order cancelled - Patient discharged Performed By: #### L 500.2500, L100.0100 ####[facility] [address], [address] CREAT,SERUM Normal 0.55-1.[address] [facility] Comment on above: Result Comment: Canc elled via OM: Order cancelled - Patient discharged Performed By: #### L 500.2500, L100.0100 ####[facility] [address] [place], [address] EST GFR Normal >[address] [facility] Comment on above: Result Comment: Canc elled via OM: Order cancelled - Patient discharged Performed By: #### L 500.2500, L100.0100 ####[facility] [address] [place], [address] EST GFR - AA Normal >[address] [facility] Comment on above: Result Comment: Canc elled via OM: Order cancelled - Patient discharged Performed By: #### L 500.2500, L100.0100 ####[facility] [address] [place], [address] GAP Normal 5-[address] [facility] Comment on above: Result Comment: Canc elled via OM: Order cancelled - Patient discharged Performed By: #### L 500.2500, L100.0100 ####[facility] [address], [address] GLU Normal 74-[address] [facility] Comment on above: Result Comment: Canc elled via OM: Order cancelled - Patient discharged Performed By: #### L 500.2500, L100.0100 ####[facility] [address], [address] Potassium Normal 3.5-5.[address] [facility] Comment on above: Result Comment: Canc elled via OM: Order cancelled - Patient discharged Performed By: #### L 500.2500, L100.0100 ####[facility] [address], [address] Basic Metabolic Profile (BMP) Normal 136-[address] [facility] Comment on above: Result Comment: Canc elled via OM: Order cancelled - Patient discharged Performed By: #### L 500.2500, L100.0100 ####[facility] [address], [address] CBC W/Diff, Automatedon 03-0 Absolute Neut Normal 2.0-7.[address] [facility] Comment on above: Result Comment: Canc elled via OM: Order cancelled - Patient discharged Performed By: #### L 500.2500, L100.0100 ####[facility] [address] [place], [address] HCT Normal 37-[address] [facility] Comment on above: Result Comment: Canc elled via OM: Order cancelled - Patient discharged Performed By: #### L 500.2500, L100.0100 ####[facility] [address] [place], [address] HGB Normal 12.0-15.[address] [facility] Comment on above: Result Comment: Canc elled via OM: Order cancelled - Patient discharged Performed By: #### L 500.2500, L100.0100 ####[facility] [address] [place], [address] MCH Normal 27.0-32.[address] [facility] Comment on above: Result Comment: Canc elled via OM: Order cancelled - Patient discharged Performed By: #### L 500.2500, L100.0100 ####[facility] [address] [place], [address] MCHC Normal 32-[address] [facility] Comment on above: Result Comment: Canc elled via OM: Order cancelled - Patient discharged Performed By: #### L 500.2500, L100.0100 ####[facility] [address] [place], [address] MCV Normal 81-[address] [facility] Comment on above: Result Comment: Canc elled via OM: Order cancelled - Patient discharged Performed By: #### L 500.2500, L100.0100 ####[facility] [address] [place], [address] NEUT% Normal 47-[address] [facility] Comment on above: Result Comment: Canc elled via OM: Order cancelled - Patient discharged Performed By: #### L 500.2500, L100.0100 ####[facility] [address] [place], [address] PLT Normal 150-[address] [facility] Comment on above: Result Comment: Canc elled via OM: Order cancelled - Patient discharged Performed By: #### L 500.2500, L100.0100 ####[facility] [address] [place], [address] RBC Normal 4.2-5.[address] [facility] Comment on above: Result Comment: Canc elled via OM: Order cancelled - Patient discharged Performed By: #### L 500.2500, L100.0100 ####[facility] [address] [place], [address] RDW CV Normal 11.6-14.[address] [facility] Comment on above: Result Comment: Canc elled via OM: Order cancelled - Patient discharged Performed By: #### L 500.2500, L100.0100 ####[facility] [address] [place], [address] RDW SD Normal 35.1-43.[address] [facility] Comment on above: Result Comment: Canc elled via OM: Order cancelled - Patient discharged Performed By: #### L 500.2500, L100.0100 ####[facility] [address] [place], [address] WBC Normal 4.4-11.[address] [facility] Comment on above: Result Comment: Canc elled via OM: Order cancelled - Patient discharged Performed By: #### L 500.2500, L100.0100 ####[facility] [address] [place], [address] Basic Metabolic Profile (BMP )on 07-08-2024 Calcium [Mass/Vol] 9.1 mg/dL Normal 7.6-11.0 [facility] Comment on above: Performed By: #### L 100.0100, L500.2500 ####[facility] [address] [place], [address] Chloride [Moles/Vol] 100 mmol/L Normal 98-107 [facility] Comment on above: Performed By: #### L 100.0100, L500.2500 ####[facility] [address] [place], [address] CO2 [Moles/Vol] 26.1 mmol/L Normal 21.0-32.[address] [facility] Comment on above: Performed By: #### L 100.0100, L500.2500 ####[facility] [address], [address] EST GFR - AA TNP Normal >[address] [facility] Comment on above: Performed By: #### L 100.0100, L500.2500 ####[facility] [address] [place], [address] GAP 11 Normal 5-[address] [facility] Comment on above: Performed By: #### L 100.0100, L500.2500 ####[facility] [address], [address] Potassium [Moles/Vol] 4.0 mmol/L Normal 3.5-5.1 [facility] Comment on above: Performed By: #### L 100.0100, L500.2500 ####[facility] [address], [address] Sodium [Moles/Vol] 137 mmol/L Normal 136-145 [facility] Comment on above: Performed By: #### L 100.0100, L500.2500 ####[facility] [address], [address] CBC W/Diff, Automatedon 02-2 Absolute Lymph 1.30 X10 3/uL Normal 0.83-4.[address] [facility] Comment on above: Performed By: #### L 100.0100, L500.2500 ####[facility] [address] [place], [address] Absolute Neut 3.3 X10 3/uL Normal 2.0-7.[address] [facility] Comment on above: Performed By: #### L 100.0100, L500.2500 ####[facility] [address], [address] Basophils/100 WBC (Bld) 1.6 % High 0-1 [facility] Comment on above: Performed By: #### L 100.0100, L500.2500 ####[facility] [address] [place], [address] Eosinophils/100 WBC (Bld) 5.2 % High 0-[address] [facility] Comment on above: Performed By: #### L 100.0100, L500.2500 ####[facility] [address] [place], [address] Erythrocyte distribution width (RBC) [Ratio] 15.2 % High 11.6-14.[address] [facility] Comment on above: Performed By: #### L 100.0100, L500.2500 ####[facility] [address], [address] Hematocrit (Bld) [Volume fraction] 27.6 % Low 37-[address] [facility] Comment on above: Performed By: #### L 100.0100, L500.2500 ####[facility] [address] [place], [address] Hemoglobin (Bld) [Mass/Vol] 8.7 g/dL Low 12.0-15.[address] [facility] Comment on above: Performed By: #### L 100.0100, L500.2500 ####[facility] [address], [address] IG% 1.400 High 0.0-0.[address] [facility] Comment on above: Result Comment: IG% - Immature Granulocytes (promyelocytes, myelocytes andmetamyelocytes) > 1% indicates that a LEFT SHIFT is Present. Performed By: #### L 100.0100, L500.2500 ####[facility] [address], [address] Lymphocytes/100 WBC (Bld) 22.6 % Normal 19-[address] [facility] Comment on above: Performed By: #### L 100.0100, L500.2500 ####[facility] [address] [place], [address] MCH (RBC) [Entitic mass] 30.2 pg Normal 27.0-32.[address] [facility] Comment on above: Performed By: #### L 100.0100, L500.2500 ####[facility] [address] [place], [address] MCHC (RBC) [Mass/Vol] 31.5 g/dL Low 32-36 [facility] Comment on above: Performed By: #### L 100.0100, L500.2500 ####[facility] [address] [place], [address] MCV (RBC) [Entitic vol] 95.8 fL Normal 81-99 [facility] Comment on above: Performed By: #### L 100.0100, L500.2500 ####[facility] [address] [place], [address] Monocytes/100 WBC (Bld) 11.5 % High 0-10 [facility] Comment on above: Performed By: #### L 100.0100, L500.2500 ####[facility] [address] [place], [address] Neutrophils/100 WBC (Bld) 57.7 % Normal 47-[address] [facility] Comment on above: Performed By: #### L 100.0100, L500.2500 ####[facility] [address] [place], [address] Nucleated RBC (Bld) [#/Vol] 0 10*3/uL Normal 0-[address] [facility] Comment on above: Performed By: #### L 100.0100, L500.2500 ####[facility] [address] [place], [address] Platelet mean volume (Bld) [Entitic vol] 9.4 fL Normal 6.2-12.[address] [facility] Comment on above: Performed By: #### L 100.0100, L500.2500 ####[facility] [address] [place], [address] Platelets (Bld) [#/Vol] 362 10*3/uL Normal 150-[address] [facility] Comment on above: Performed By: #### L 100.0100, L500.2500 ####[facility] [address], [address] RBC (Bld) [#/Vol] 2.88 10*6/uL Low 4.2-5.4 [facility] Comment on above: Performed By: #### L 100.0100, L500.2500 ####[facility] [address], [address] RDW SD 53.6 fl High 35.1-43.[address] [facility] Comment on above: Performed By: #### L 100.0100, L500.2500 ####[facility] [address], [address] WBC (Bld) [#/Vol] 5.8 10*3/uL Normal 4.4-11.0 [facility] Comment on above: Performed By: #### L 100.0100, L500.2500 ####[facility] [address], [address] Basic Metabolic Profile (BMP )on 07-05-2024 BUN Normal 7-[address] [facility] Comment on above: Result Comment: Canc elled via OM: Order cancelled - Patient discharged Performed By: #### L 100.0100, L500.2500 ####[facility] [address], [address] BUN/CRE Normal 10-[address] [facility] Comment on above: Result Comment: Canc elled via OM: Order cancelled - Patient discharged Performed By: #### L 100.0100, L500.2500 ####[facility] [address], [address] CA,Total Normal 8.5-10.[address] [facility] Comment on above: Result Comment: Canc elled via OM: Order cancelled - Patient discharged Performed By: #### L 100.0100, L500.2500 ####[facility] [address] [place], [address] CL Normal 98-[address] [facility] Comment on above: Result Comment: Canc elled via OM: Order cancelled - Patient discharged Performed By: #### L 100.0100, L500.2500 ####[facility] [address] [place], [address] CO2 Normal 21.0-32.[address] [facility] Comment on above: Result Comment: Canc elled via OM: Order cancelled - Patient discharged Performed By: #### L 100.0100, L500.2500 ####[facility] [address], [address] CREAT,SERUM Normal 0.55-1.[address] [facility] Comment on above: Result Comment: Canc elled via OM: Order cancelled - Patient discharged Performed By: #### L 100.0100, L500.2500 ####[facility] [address] [place], [address] EST GFR Normal >[address] [facility] Comment on above: Result Comment: Canc elled via OM: Order cancelled - Patient discharged Performed By: #### L 100.0100, L500.2500 ####[facility] [address] [place] [place], [address] EST GFR - AA Normal >[address] [facility] Comment on above: Result Comment: Canc elled via OM: Order cancelled - Patient discharged Performed By: #### L 100.0100, L500.2500 ####[facility] [address] [place], [address] GAP Normal 5-[address] [facility] Comment on above: Result Comment: Canc elled via OM: Order cancelled - Patient discharged Performed By: #### L 100.0100, L500.2500 ####[facility] [address] [place], [address] GLU Normal 74-[address] [facility] Comment on above: Result Comment: Canc elled via OM: Order cancelled - Patient discharged Performed By: #### L 100.0100, L500.2500 ####[facility] [address] [place], [address] Potassium Normal 3.5-5.[address] [facility] Comment on above: Result Comment: Canc elled via OM: Order cancelled - Patient discharged Performed By: #### L 100.0100, L500.2500 ####[facility] [address] [place], [address] Basic Metabolic Profile (BMP) Normal 136-[address] [facility] Comment on above: Result Comment: Canc elled via OM: Order cancelled - Patient discharged Performed By: #### L 100.0100, L500.2500 ####[facility] [address] [place], [address] CBC W/Diff, Automatedon 02-2 Absolute Neut Normal 2.0-7.[address] [facility] Comment on above: Result Comment: Canc elled via OM: Order cancelled - Patient discharged Performed By: #### L 100.0100, L500.2500 ####[facility] [address] [place], [address] HCT Normal 37-[address] [facility] Comment on above: Result Comment: Canc elled via OM: Order cancelled - Patient discharged Performed By: #### L 100.0100, L500.2500 ####[facility] [address] [place], [address] HGB Normal 12.0-15.[address] [facility] Comment on above: Result Comment: Canc elled via OM: Order cancelled - Patient discharged Performed By: #### L 100.0100, L500.2500 ####[facility] [address] [place], [address] MCH Normal 27.0-32.[address] [facility] Comment on above: Result Comment: Canc elled via OM: Order cancelled - Patient discharged Performed By: #### L 100.0100, L500.2500 ####[facility] [address] [place], [address] MCHC Normal 32-[address] [facility] Comment on above: Result Comment: Canc elled via OM: Order cancelled - Patient discharged Performed By: #### L 100.0100, L500.2500 ####[facility] [address] [place], [address] MCV Normal 81-[address] [facility] Comment on above: Result Comment: Canc elled via OM: Order cancelled - Patient discharged Performed By: #### L 100.0100, L500.2500 ####[facility] [address] [place], [address] NEUT% Normal 47-[address] [facility] [facility] [address] [facility] Comment on above: Result Comment: Canc elled via OM: Order cancelled - Patient discharged Performed By: #### L 100.0100, L500.2500 ####[facility] [address] [place], [address] PLT Normal 150-[address] [facility] Comment on above: Result Comment: Canc elled via OM: Order cancelled - Patient discharged Performed By: #### L 100.0100, L500.2500 ####[facility] [address] [place], [address] RBC Normal 4.2-5.[address] [facility] Comment on above: Result Comment: Canc elled via OM: Order cancelled - Patient discharged Performed By: #### L 100.0100, L500.2500 ####[facility] [address] [place], [address] RDW CV Normal 11.6-14.[address] [facility] Comment on above: Result Comment: Canc elled via OM: Order cancelled - Patient discharged Performed By: #### L 100.0100, L500.2500 ####[facility] [address] [place], [address] RDW SD Normal 35.1-43.[address] [facility] Comment on above: Result Comment: Canc elled via OM: Order cancelled - Patient discharged Performed By: #### L 100.0100, L500.2500 ####[facility] [address] [place], [address] WBC Normal 4.4-11.[address] [facility] Comment on above: Result Comment: Canc elled via OM: Order cancelled - Patient discharged Performed By: #### L 100.0100, L500.2500 ####[facility] [address] [place], [address] Basic Metabolic Profile (BMP )on 07-01-2024 BUN/CRE 22.4 RATIO High 02-[address] [facility] Comment on above: Performed By: #### L 500.2500, L100.0100 ####[facility] [address] [place], [address] CA,Total 9.4 mg/dL Normal 8.5-10.[address] [facility] Comment on above: Performed By: #### L 500.2500, L100.0100 ####[facility] [address] [place], [address] Chloride [Moles/Vol] 100 mmol/L Normal 98-107 [facility] Comment on above: Performed By: #### L 500.2500, L100.0100 ####[facility] [address] [place], [address] CO2 [Moles/Vol] 29.0 mmol/L Normal 21.0-32.[address] [facility] Comment on above: Performed By: #### L 500.2500, L100.0100 ####[facility] [address], [address] Creatinine [Mass/Vol] 0.72 mg/dL Normal 0.55-1.02 [facility] Comment on above: Result Comment: The validity of the calculated GFR GFRAA in patients over70 years has not been determined. Clinical correlation isessential. Performed By: #### L 500.2500, L100.0100 ####[facility] [address], [address] ECRCL 44.27 ml/min Normal [facility] Comment on above: Performed By: #### L 500.2500, L100.0100 ####[facility] [address] [place], [address] EST GFR - AA 99 mL/min Normal >[address] [facility] Comment on above: Result Comment: Afri can [place] GFR Calc Performed By: #### L 500.2500, L100.0100 ####[facility] [address] [place], [address] GAP 8 Normal 5-[address] [facility] Comment on above: Performed By: #### L 500.2500, L100.0100 ####[facility] [address] [place], [address] GFR/1.73 sq M.predicted among non-blacks MDRD (S/P/Bld) [Vol rate/Area] 82 mL/min/{1.73_m2} Normal >[address] [facility] Comment on above: Result Comment: Non- GFR Calc Performed By: #### L 500.2500, L100.0100 ####[facility] [address] [place], [address] Glucose [Mass/Vol] 102 mg/dL Normal 74-106 [facility] Comment on above: Result Comment: Fast ing Glucose result from 100 to 125 mg/dLsuggests IMPAIRED HOMEOSTASIS per A.D.A. criteria. Performed By: #### L 500.2500, L100.0100 ####[facility] [address], [address] Potassium [Moles/Vol] 4.4 mmol/L Normal 3.5-5.1 [facility] Comment on above: Performed By: #### L 500.2500, L100.0100 ####[facility] [address] [place], [address] Sodium [Moles/Vol] 137 mmol/L Normal 136-145 [facility] Comment on above: Performed By: #### L 500.2500, L100.0100 ####[facility] [address] [place], [address] Urea nitrogen [Mass/Vol] 16 mg/dL Normal 7-[address] [facility] Comment on above: Performed By: #### L 500.2500, L100.0100 ####[facility] [address] [place], [address] CBC W/Diff, Automatedon 02-2 0-2024 Absolute Lymph 1.78 X10 3/uL Normal 0.83-4.[address] [facility] Comment on above: Performed By: #### L 500.2500, L100.0100 ####[facility] [address] [place], [address] Absolute Neut 3.3 X10 3/uL Normal 2.0-7.[address] [facility] Comment on above: Performed By: #### L 500.2500, L100.0100 ####[facility] [address] [place], [address] Basophils/100 WBC (Bld) 1.3 % High 0-1 [facility] Comment on above: Performed By: #### L 500.2500, L100.0100 ####[facility] [address], [address] Eosinophils/100 WBC (Bld) 5.6 % High 0-[address] [facility] Comment on above: Performed By: #### L 500.2500, L100.0100 ####[facility] [address], [address] Erythrocyte distribution width (RBC) [Ratio] 14.4 % Normal 11.6-14.[address] [facility] Comment on above: Performed By: #### L 500.2500, L100.0100 ####[facility] [address] [place], [address] Hematocrit (Bld) [Volume fraction] 33.4 % Low 37-[address] [facility] Comment on above: Performed By: #### L 500.2500, L100.0100 ####[facility] [address] [place], [address] Hemoglobin (Bld) [Mass/Vol] 10.5 g/dL Low 12.0-15.[address] [facility] Comment on above: Performed By: #### L 500.2500, L100.0100 ####[facility] [address], [address] IG% 0.800 Normal 0.0-0.[address] [facility] Comment on above: Result Comment: IG% - Immature Granulocytes (promyelocytes, myelocytes andmetamyelocytes) > 1% indicates that a LEFT SHIFT is Present. Performed By: #### L 500.2500, L100.0100 ####[facility] [address], [address] Lymphocytes/100 WBC (Bld) 29.2 % Normal 19-[address] [facility] Comment on above: Performed By: #### L 500.2500, L100.0100 ####[facility] [address] [place], [address] MCH (RBC) [Entitic mass] 29.6 pg Normal 27.0-32.[address] [facility] Comment on above: Performed By: #### L 500.2500, L100.0100 ####[facility] [address] [place], [address] MCHC (RBC) [Mass/Vol] 31.4 g/dL Low 32-36 [facility] Comment on above: Performed By: #### L 500.2500, L100.0100 ####[facility] [address] [place], [address] MCV (RBC) [Entitic vol] 94.1 fL Normal 81-99 [facility] Comment on above: Performed By: #### L 500.2500, L100.0100 ####[facility] [address], [address] Monocytes/100 WBC (Bld) 8.4 % Normal 0-10 [facility] Comment on above: Performed By: #### L 500.2500, L100.0100 ####[facility] [address], [address] Neutrophils/100 WBC (Bld) 54.7 % Normal 47-[address] [facility] Comment on above: Performed By: #### L 500.2500, L100.0100 ####[facility] [address], [address] Nucleated RBC (Bld) [#/Vol] 0 10*3/uL Normal 0-[address] [facility] Comment on above: Performed By: #### L 500.2500, L100.0100 ####[facility] [address], [address] Platelet mean volume (Bld) [Entitic vol] 9.5 fL Normal 6.2-12.[address] [facility] Comment on above: Performed By: #### L 500.2500, L100.0100 ####[facility] [address] [place], [address] Platelets (Bld) [#/Vol] 357 10*3/uL Normal 150-[address] [facility] Comment on above: Performed By: #### L 500.2500, L100.0100 ####[facility] [address], [address] RBC (Bld) [#/Vol] 3.55 10*6/uL Low 4.2-5.4 [facility] Comment on above: Performed By: #### L 500.2500, L100.0100 ####[facility] [address], [address] RDW SD 50.5 fl High 35.1-43.[address] [facility] Comment on above: Performed By: #### L 500.2500, L100.0100 ####[facility] [address], [address] WBC (Bld) [#/Vol] 6.1 10*3/uL Normal 4.4-11.0 [facility] Comment on above: Performed By: #### L 500.2500, L100.0100 ####[facility] [address], [address] Basic metabolic 2000 panelon 06-30-2024 Anion gap [Moles/Vol] 9 mmol/L Normal 8-15 [facility] Comment on above: Order Comment: Speci men Type: BLOOD SPECIMENOrdering Facility: [facility] Address: [address] [place] [address] Performed By: #### 2 4321-2 ####[facility] LABORATORYCLIA [id number] [place] [address] [place] Calcium [Mass/Vol] 8.7 mg/dL Normal 8.5-10.2 [facility] Comment on above: Order Comment: Speci men Type: BLOOD SPECIMENOrdering Facility: [facility] Address: [address] [place] [address] Performed By: #### 2 4321-2 ####[facility] LABORATORYCLIA [id number] [place] [address] [place] Chloride [Moles/Vol] 98 mmol/L Normal 98-107 [facility] Comment on above: Order Comment: Speci men Type: BLOOD SPECIMENOrdering Facility: [facility] Address: [address] [place] [address] Performed By: #### 2 4321-2 ####[facility] LABORATORYCLIA [id number] [place] [address] [place] CO2 [Moles/Vol] 29 mmol/L Normal 22-30 [facility] Comment on above: Order Comment: Speci men Type: BLOOD SPECIMENOrdering Facility: [facility] Address: [address] [place] [address] Performed By: #### 2 4321-2 ####[facility] LABORATORYCLIA [id number] [place] [address] [place] Creatinine [Mass/Vol] 0.77 mg/dL Normal 0.58-0.96 [facility] Comment on above: Order Comment: Speci men Type: BLOOD SPECIMENOrdering Facility: [facility] Address: [address] [place] [address] Performed By: #### 2 4321-2 ####[facility] LABORATORYCLIA [id number] [address] OF [place] Creatinine and Glomerular filtration rate.predicted panel (S/P/Bld) 74 mL/min/1.73m??? Normal >=60 [facility] Comment on above: Order Comment: Christopher hurd Type: BLOOD SPECIMENOrdering Facility: [facility] Address: [address] [place] [address] Result Comment: Michael mated Glomerular Filtration Rate [...] actual GFR. Performed By: #### 2 4321-2 ####[facility] LABORATORYCLIA [id number] [place] [address] [place] Glucose [Mass/Vol] 97 mg/dL Normal 74-99 [facility] Comment on above: Order Comment: Christopher hurd Type: BLOOD SPECIMENOrdering Facility: [facility] Address: [address] [place] [address] Result Comment: The [place] Diabetes Association (ADA) provides guidance for cutoff [...] Standards of Medical Care in Diabetes 2016, [place] [employer]. Diabetes Care. 2016.39(Suppl 1). Performed By: #### 2 4321-2 ####[facility] LABORATORYCLIA [id number] [place] [address] [place] Potassium [Moles/Vol] 4.4 mmol/L Normal 3.7-5.1 [facility] Comment on above: Order Comment: Christopher hurd Type: BLOOD SPECIMENOrdering Facility: [facility] Address: [address] [place] [address] Performed By: #### 2 4321-2 ####[facility] [id number] [place] [id number] [place] Sodium [Moles/Vol] 136 mmol/L Normal 136-144 [facility] Comment on above: Order Comment: Speci men Type: BLOOD SPECIMENOrdering Facility: [facility] Address: [address] [place] [address] Performed By: #### 2 4321-2 ####[facility] LABORATORYCLIA [id number] [address] [place] Urea nitrogen [Mass/Vol] 19 mg/dL Normal 7-21 [facility] Comment on above: Order Comment: Speci men Type: BLOOD SPECIMENOrdering Facility: [facility] Address: [address] [place] [address] Performed By: #### 2 4321-2 ####[facility] LABORATORYCLIA [id number] [address] CBC panel Auto (Bld)on 06-30 Erythrocyte distribution width (RBC) [Ratio] 14.6 % Normal 11.5-15.0 [facility] Comment on above: Order Comment: Speci men Type: BLOOD SPECIMENOrdering Facility: [facility] Address: [address] [place] [address] Performed By: #### 5 8410-2 ####[facility] LABORATORYCLIA [id number] [address] [place] Hematocrit (Bld) [Volume fraction] 31.1 % Low 36.0-46.0 [facility] Comment on above: Order Comment: Speci men Type: BLOOD SPECIMENOrdering Facility: [facility] Address: [address] [place] [address] Performed By: #### 5 8410-2 ####[facility] LABORATORYCLIA [id number] [address] Hemoglobin (Bld) [Mass/Vol] 10.0 g/dL Low 11.5-15.5 [facility] Comment on above: Order Comment: Speci men Type: BLOOD SPECIMENOrdering Facility: [facility] Address: [address] [place] [address] Performed By: #### 5 8410-2 ####[facility] LABORATORYCLIA [id number] [address] MCH (RBC) [Entitic mass] 30.5 pg Normal 26.0-34.0 [facility] Comment on above: Order Comment: Speci men Type: BLOOD SPECIMENOrdering Facility: [facility] Address: [address] [place] [address] Performed By: #### 5 8410-2 ####[facility] LABORATORYCLIA [id number] [address] MCHC (RBC) [Mass/Vol] 32.2 g/dL Normal 30.5-36.0 [facility] Comment on above: Order Comment: Speci men Type: BLOOD SPECIMENOrdering Facility: [facility] Address: [address] [place] [address] Performed By: #### 5 8410-2 ####[facility] LABORATORYCLIA [id number] [address] MCV (RBC) [Entitic vol] 94.8 fL Normal 80.0-100.0 [facility] Comment on above: Order Comment: Speci men Type: BLOOD SPECIMENOrdering Facility: [facility] Address: [address] [place] [address] Performed By: #### 5 8410-2 ####[facility] LABORATORYCLIA [id number] [address] Nucleated RBC (Bld) [#/Vol] 10*3/uL Normal <0.01 [facility] Comment on above: Order Comment: Speci men Type: BLOOD SPECIMENOrdering Facility: [facility] Address: [address] [place] [address] Performed By: #### 5 8410-2 ####[facility] LABORATORYCLIA [id number] [address] Platelet mean volume (Bld) [Entitic vol] 9.5 fL Normal 9.0-12.7 [facility] Comment on above: Order Comment: Speci men Type: BLOOD SPECIMENOrdering Facility: [facility] Address: [address] [place] [address] Performed By: #### 5 8410-2 ####[facility] LABORATORYCLIA [id number] [address] Platelets (Bld) [#/Vol] 265 10*3/uL Normal 150-400 [facility] Comment on above: Order Comment: Speci men Type: BLOOD SPECIMENOrdering Facility: [facility] Address: [address] [place] [address] Performed By: #### 5 8410-2 ####[facility] LABORATORYCLIA [id number] [address] RBC (Bld) [#/Vol] 3.28 10*6/uL Low 3.90-5.20 [facility] Comment on above: Order Comment: Speci men Type: BLOOD SPECIMENOrdering Facility: [facility] Address: [address] [place] [address] Performed By: #### 5 8410-2 ####[facility] LABORATORYCLIA [id number] [address] WBC (Bld) [#/Vol] 5.07 10*3/uL Normal 3.70-11.00 [facility] Comment on above: Order Comment: Speci men Type: BLOOD SPECIMENOrdering Facility: [facility] Address: [address] [place] [address] Performed By: #### 5 8410-2 ####[facility] LABORATORYCLIA [id number] [address] CNDSon 06-30-2024 CNDS HNO ID: [id number] Author: WALLY ZIEGLER MD Service: General Surgery Author Type: Nurse Practitioner Type: Discharge Summary Filed: 07/06/2024 15:47 Note Text: Attestation signed by Wally Ziegler MD at 07/06/2024 3:47 PM Attending Note The patient is appropriate for discharge on 06/30/2024 The [facility], acting on behalf of the attending physician, has completed the spsk-no-dldx portion of the patient discharge encounter. Wally [...] an 89-year old female who presented to [place] ED on 06/26/24 following a fall. Patient [...] the above findings, patient was transferred to [facility] for further trauma evaluation. Patient's rib [...] No pending results Discharge Disposition Discharge Disposition: Long Term Facility - Less than 30 Days Activity When You Leave the Hospital Lifting is restricted to: No heavy lifting (>10 pounds) or strenuous exercise x 6 weeks Limited to: Weightbearing as tolerated with post-operative boot to right lo (more content not included)... Normal [facility] THERAPY NTon 06-30-2024 THERAPY NT HNO ID: [id number] Author: RAUDEL SAPP, PT Service: Physical Therapy Author Type: Physical Therapist Type: Therapy (PT/OT/Speech/Resp) Filed: 06/30/2024 16:09 Note Text: Physical Therapy Treatment Summary SERVICE DATE: 06/30/2024 SERVICE TIME: 1522 to 1545 ROOM: [place] [address] PT 6 Clicks Score: 17 DISCHARGE RECOMMENDATIONS [...] female admitted for fall, recently discharged from [place] following another fall, found to have R [...] prior to last fall and admission to [place] was independent with mobility, using rollator, recently discharged home from [place], living home alone with assist from family and friends for IADLs as needed, was about to start Home PT, OT, ST SUBJECTIVE Patient pleasant and agreeable to PT session THERAPY DIAGNOSIS Reduced mobility-other, Muscle Weakness (generalized), Unsteadiness on feet, General symptoms and signs-other TREATMENT INTERVENTIONS Therapeutic Exercise (72604), Therapeutic Activity (01141), Gait Training (92835) Therapeutic Exercise (87380) Treatment Minutes: 10 $ Therapeutic Exercise (64568) Billed Units: 1 unit Exercise Ankle Pumps (number of reps): 10 Quad Sets (number of reps): 10 Glut Sets (number of reps): 10 LAQ (number of reps): 10 BLE Hip Abduction (number of reps): 10 BLE Exercise: hip adduction squeezes x10, seated hip flexion x10 BLE Therapeutic Activity (79104) Treatment Minutes: 4 $ Therapeutic Activity (43753) Billed Units: 0 units Cues/assist with transfers, further education on spine precautions and assist to don/doff LSO brace for ambulation. Feet elevated in recliner at end of session with call light on lap. Gait Training (51884) Treatment Minutes: 9 $ Gait Training (93444) Billed Units: 1 unit Cues/assist with ambulation [...] increased t (more content not included)... Normal [facility] THERAPY NT HNO ID: [id number] Author: JOSE ANGEL BELTRAN, CCC-TELECOMMUNICATIONS PROFESSIONAL Service: Speech/Swallow Author Type: Speech Language Pathologist Type: Therapy (PT/OT/Speech/Resp) Filed: 06/30/2024 10:38 Note Text: Speech Therapy Clinical Swallow Evaluation SERVICE DATE: 06/30/2024 SERVICE TIME: 0955 to 1010 ROOM: [place] [address] IMPRESSION Functional oropharyngeal phases of swallowing: without [...] Need TREATMENT INTERVENTIONS $ Clinical Swallow Evaluation (02351) Billed Units: 1 unit Clinical Swallow Evaluation (30487) Skilled Treatment Time (minutes): 15 TRAINING AND [...] Bite/Sip -Patient alert, up in chair on TELECOMMUNICATIONS PROFESSIONAL arrival, agreeable to evaluation -Able to feed [...] Developed with: Patient SIGNATURE: Jose Angel Beltran CCC-TELECOMMUNICATIONS PROFESSIONAL PATIENT NAME: Joyce Solomon DATE: June 30, 2024 TIME: 10:36 AM Normal [facility] Basic metabolic 2000 panelon 06-29-2024 Anion gap [Moles/Vol] 10 mmol/L Normal 8-15 [facility] Comment on above: Order Comment: Speci men Type: BLOOD SPECIMENOrdering Facility: [facility] Address: [address] [place] [address] Performed By: #### 1 9123-9, 73663-1 ####[facility] LABORATORYCLIA [id number] [address] STATES OF [facility] Calcium [Mass/Vol] 8.7 mg/dL Normal 8.5-10.2 [facility] Comment on above: Order Comment: Speci men Type: BLOOD SPECIMENOrdering Facility: [facility] Address: [address] [place] [address] Performed By: #### 1 9123-9, 32136-9 ####[facility] LABORATORYCLIA [id number] [place] [address] [place] Chloride [Moles/Vol] 97 mmol/L Low 98-107 [facility] Comment on above: Order Comment: Speci men Type: BLOOD SPECIMENOrdering Facility: [facility] Address: [address] [place] [address] Performed By: #### 1 9123-9, 98157-1 ####[facility] LABORATORYCLIA [id number] [address] [place] CO2 [Moles/Vol] 28 mmol/L Normal 22-30 [facility] Comment on above: Order Comment: Speci men Type: BLOOD SPECIMENOrdering Facility: [facility] Address: [address] [place] [address] Performed By: #### 1 9123-9, 45065-5 ####[facility] LABORATORYCLIA [id number] [address] [place] Creatinine [Mass/Vol] 0.78 mg/dL Normal 0.58-0.96 [facility] Comment on above: Order Comment: Speci men Type: BLOOD SPECIMENOrdering Facility: [facility] Address: [address] [place] [address] Performed By: #### 1 9123-9, 85891-8 ####[facility] LABORATORYCLIA [id number] [address] Creatinine and Glomerular filtration rate.predicted panel (S/P/Bld) 73 mL/min/1.73m??? Normal >=60 [facility] Comment on above: Order Comment: Speci men Type: BLOOD SPECIMENOrdering Facility: [facility] Address: [address] [place] [address] Result Comment: Michael mated Glomerular Filtration Rate [...] actual GFR. Performed By: #### 1 9123-9, 97342-9 ####[facility] LABORATORYCLIA [id number] [place] [address] [place] Glucose [Mass/Vol] 99 mg/dL Normal 74-99 [facility] Comment on above: Order Comment: Speci men Type: BLOOD SPECIMENOrdering Facility: [facility] Address: [address] [place] [address] Result Comment: The [place] Diabetes Association (ADA) provides guidance for cutoff [...] Standards of Medical Care in Diabetes 2016, [place] [employer]. Diabetes Care. 2016.39(Suppl 1). Performed By: #### 1 9123-9, 94796-4 ####[facility] LABORATORYCLIA [id number] [place] [address] [place] Potassium [Moles/Vol] 4.0 mmol/L Normal 3.7-5.1 [facility] Comment on above: Order Comment: Speci men Type: BLOOD SPECIMENOrdering Facility: [facility] Address: [address] [place] [address] Performed By: #### 1 9123-9, 91664-1 ####[facility] LABORATORYCLIA [id number] [address] [place] Sodium [Moles/Vol] 135 mmol/L Low 136-144 [facility] Comment on above: Order Comment: Speci men Type: BLOOD SPECIMENOrdering Facility: [facility] Address: [address] [place] [address] Performed By: #### 1 9123-9, 79401-4 ####[facility] LABORATORYCLIA [id number] [address] STATES [facility] Urea nitrogen [Mass/Vol] 17 mg/dL Normal 7-21 [facility] Comment on above: Order Comment: Speci men Type: BLOOD SPECIMENOrdering Facility: [facility] Address: [address] [place] [address] Performed By: #### 1 9123-9, 53112-1 ####[facility] LABORATORYCLIA [id number] [address] CBC panel Auto (Bld)on 06-29 Erythrocyte distribution width (RBC) [Ratio] 14.6 % Normal 11.5-15.0 [facility] Comment on above: Order Comment: Speci men Type: BLOOD SPECIMENOrdering Facility: [facility] Address: [address] [place] [address] Performed By: #### 5 8410-2 ####[facility] LABORATORYCLIA [id number] [address] [place] Hematocrit (Bld) [Volume fraction] 29.4 % Low 36.0-46.0 [facility] Comment on above: Order Comment: Speci men Type: BLOOD SPECIMENOrdering Facility: [facility] Address: [address] [place] [address] Performed By: #### 5 8410-2 ####[facility] LABORATORYCLIA [id number] [address] [place] Hemoglobin (Bld) [Mass/Vol] 9.5 g/dL Low 11.5-15.5 [facility] Comment on above: Order Comment: Speci men Type: BLOOD SPECIMENOrdering Facility: [facility] Address: [address] [place] [address] Performed By: #### 5 8410-2 ####[facility] LABORATORYCLIA [id number] [address] MCH (RBC) [Entitic mass] 30.4 pg Normal 26.0-34.0 [facility] Comment on above: Order Comment: Speci men Type: BLOOD SPECIMENOrdering Facility: [facility] Address: [address] [place] [address] Performed By: #### 5 8410-2 ####[facility] LABORATORYCLIA [id number] [address] MCHC (RBC) [Mass/Vol] 32.3 g/dL Normal 30.5-36.0 [facility] Comment on above: Order Comment: Speci men Type: BLOOD SPECIMENOrdering Facility: [facility] Address: [address] [place] [address] Performed By: #### 5 8410-2 ####[facility] LABORATORYCLIA [id number] [address] MCV (RBC) [Entitic vol] 93.9 fL Normal 80.0-100.0 [facility] Comment on above: Order Comment: Speci men Type: BLOOD SPECIMENOrdering Facility: [facility] Address: [address] [place] [address] Performed By: #### 5 8410-2 ####[facility] LABORATORYCLIA [id number] [address] Nucleated RBC (Bld) [#/Vol] 10*3/uL Normal <0.01 [facility] Comment on above: Order Comment: Speci men Type: BLOOD SPECIMENOrdering Facility: [facility] Address: [address] [place] [address] Performed By: #### 5 8410-2 ####[facility] LABORATORYCLIA [id number] [place] [address] [place] Platelet mean volume (Bld) [Entitic vol] 9.4 fL Normal 9.0-12.7 [facility] Comment on above: Order Comment: Speci men Type: BLOOD SPECIMENOrdering Facility: [facility] Address: [address] [place] [address] Performed By: #### 5 8410-2 ####[facility] LABORATORYCLIA [id number] [place] [address] [place] Platelets (Bld) [#/Vol] 262 10*3/uL Normal 150-400 [facility] Comment on above: Order Comment: Speci men Type: BLOOD SPECIMENOrdering Facility: [facility] Address: [address] [place] [address] Performed By: #### 5 8410-2 ####[facility] LABORATORYCLIA [id number] [place] [address] [place] RBC (Bld) [#/Vol] 3.13 10*6/uL Low 3.90-5.20 [facility] Comment on above: Order Comment: Speci men Type: BLOOD SPECIMENOrdering Facility: [facility] Address: [address] [place] [address] Performed By: #### 5 8410-2 ####[facility] LABORATORYCLIA [id number] [address] [place] WBC (Bld) [#/Vol] 7.38 10*3/uL Normal 3.70-11.00 [facility] Comment on above: Order Comment: Speci men Type: BLOOD SPECIMENOrdering Facility: [facility] Address: [address] [place] [address] Performed By: #### 5 8410-2 ####[facility] LABORATORYCLIA [id number] [address] [place] Magnesium SerPl-mCncon 06-29 Magnesium [Mass/Vol] 2.2 mg/dL Normal 1.7-2.3 [facility] Comment on above: Order Comment: Speci men Type: BLOOD SPECIMENOrdering Facility: [facility] Address: [address] [place], [place] [address], [place] [address] Performed By: #### 1 9123-9, 97336-3 ####[facility] LABORATORYIA [id number] [place] [id number] [facility] NUTRITIONon 06-29-2024 NUTRITION HNO ID: [id number] Author: ROSEMARY GÓMEZ RD Service: Nutrition Therapy [...] protein determined by: 1.2 - 1.5 g/kg, [place] body weight Diet Orders (From admission, onward) [...] June 29, 2024 TIME: 3:04 PM Normal [facility] THERAPY NTon 06-29-2024 THERAPY NT HNO ID: [id number] Author: SAMIA HENRY OTR/L Service: Occupational Therapy Author Type: Occupational Therapist Type: Therapy (PT/OT/Speech/Resp) Filed: 06/29/2024 14:06 Note Text: Occupational Therapy Evaluation Summary SERVICE DATE: 06/29/2024 SERVICE TIME: 1330 to 1356 ROOM: [id number] OT 6 Clicks Score: 14 DISCHARGE RECOMMENDATIONS [...] female admitted for fall, recently discharged from [place] following another fall, found to have R [...] prior to last fall and admission to [place] was independent with mobility, using rollator, recently discharged home from [place], living home alone with assist from family and friends for IADLs as needed, was about to start Home PT, OT, ST Baseline Cognition: Oriented to self, Oriented to place, Oriented to time SUBJECTIVE awake, agreeable to OT session COGNITION Responsiveness: Alert, Awake Follows Commands: 3-step Commands THERAPY DIAGNOSIS Reduced mobility-other, Decreased activities of daily living (ADL), Muscle Weakness (generalized) TREATMENT INTERVENTIONS Evaluation, Self Retirement Management (87258) Timed Code Treatment (minutes): 10 Skilled Treatment Time (minutes): 26 $ Evaluation - Moderate (66063) Billed Units: 1 unit Self Retirement Management (00288) Treatment Minutes: 10 $ Self Retirement Management (78834) Billed Units: 1 unit TRAINING AND EDUCATION [...] Good P (more content not included)... Normal [facility] THERAPY NT HNO ID: [id number] Author: RAUDEL SAPP, JOEY Service: Physical Therapy Author Type: Physical Therapist Type: Therapy (PT/OT/Speech/Resp) Filed: 06/29/2024 11:06 Note Text: Physical Therapy Evaluation Summary SERVICE DATE: 06/29/2024 SERVICE TIME: 0942 to 1010 ROOM: [id number] PT 6 Clicks Score: 16 DISCHARGE RECOMMENDATIONS [...] female admitted for fall, recently discharged [place] following [place] fall, found to have R [...] prior to last fall and admission to [place] was independent with mobility, using rollator, recently [place], living home alone with assist from family and friends for IADLs as needed, was about to start Home PT SUBJECTIVE Patient pleasant and agreeable to PT session THERAPY DIAGNOSIS Reduced mobility-other, Muscle Weakness (generalized), Unsteadiness on feet, General symptoms and signs-other TREATMENT INTERVENTIONS Evaluation, Therapeutic Activity (48609) $ Evaluation-Moderate (57077) Billed Units: 1 unit Therapeutic Activity (52338) Treatment Minutes: 13 $ Therapeutic Activity (36824) Billed Units: 1 unit Cues/assist with mobility [...] walker management (more content not included)... Normal [facility] ALLIED HEALTHon 06-28-2024 ALLIED HEALTH HNO ID: [id number] Author: SADIA RINCON RT(R) Service: Radiology Author Type: Technologist Type: [...] PATIENT PRESENTS WITH AN IMPLANTABLE OR ATTACHED GEOSPATIAL IMAGERY INTELLIGENCE ANALYST: No RADIOLOGY DEPARTMENT: MR; Exam(s) Completed: Spine: Lumbar spine PERIPHERAL IV DATA: Not applicable SIGNED BY: Sadia Rincon RT(R) June 28, 2024 7:56 AM Normal [facility] Basic Metabolic Profile (BMP )on 06-28-2024 BUN Normal 7-[address] [facility] Comment on above: Result Comment: Canc elled via OM: Order cancelled - Patient discharged Performed By: #### L 500.2500, L100.0100 ####[facility] [address] [facility] [address] BUN/CRE Normal 10-[address] [facility] Comment on above: Result Comment: Canc elled via OM: Order cancelled - Patient discharged Performed By: #### L 500.2500, L100.0100 ####[facility] [address] [facility] [address] [place],Total Normal 8.5-10.[address] [facility] Comment on above: Result Comment: Canc elled via OM: Order cancelled - Patient discharged Performed By: #### L 500.2500, L100.0100 ####[facility] [address] [facility] [address] CL Normal 98-[address] [facility] Comment on above: Result Comment: Canc elled via OM: Order cancelled - Patient discharged Performed By: #### L 500.2500, L100.0100 ####[facility] [address] [facility] [address] CO2 Normal 21.0-32.[address] [facility] Comment on above: Result Comment: Canc elled via OM: Order cancelled - Patient discharged Performed By: #### L 500.2500, L100.0100 ####[facility] [address] [place], [address] CREAT,SERUM Normal 0.55-1.[address] [facility] Comment on above: Result Comment: Canc elled via OM: Order cancelled - Patient discharged Performed By: #### L 500.2500, L100.0100 ####[facility] [address] [place], [address] EST GFR Normal >[address] [facility] Comment on above: Result Comment: Canc elled via OM: Order cancelled - Patient discharged Performed By: #### L 500.2500, L100.0100 ####[facility] [address] [place], [address] EST GFR - AA Normal >[address] [facility] Comment on above: Result Comment: Canc elled via OM: Order cancelled - Patient discharged Performed By: #### L 500.2500, L100.0100 ####[facility] [address] [place], [address] GAP Normal 5-[address] [facility] Comment on above: Result Comment: Canc elled via OM: Order cancelled - Patient discharged Performed By: #### L 500.2500, L100.0100 ####[facility] [address] [place], [address] GLU Normal 74-[address] [facility] Comment on above: Result Comment: Canc elled via OM: Order cancelled - Patient discharged Performed By: #### L 500.2500, L100.0100 ####[facility] [address] [place], [address] Potassium Normal 3.5-5.[address] [facility] Comment on above: Result Comment: Canc elled via OM: Order cancelled - Patient discharged Performed By: #### L 500.2500, L100.0100 ####[facility] [address] [place], [address] Basic Metabolic Profile (BMP) Normal 136-[address] [facility] Comment on above: Result Comment: Canc elled via OM: Order cancelled - Patient discharged Performed By: #### L 500.2500, L100.0100 ####[facility] [address] [place], [address] Basic metabolic 2000 panelon 06-28-2024 Anion gap [Moles/Vol] 10 mmol/L Normal 8-15 [facility] Comment on above: Order Comment: Speci men Type: BLOOD SPECIMENOrdering Facility: [facility] Address: [address] [place] [address] Performed By: #### 2 4321-2, , 2776-05 ####[facility] LABORATORYCLIA [id number] [place] [address] [place] Calcium [Mass/Vol] 8.6 mg/dL Normal 8.5-10.2 [facility] Comment on above: Order Comment: Speci men Type: BLOOD SPECIMENOrdering Facility: [facility] Address: [address] [place] [address] Performed By: #### 2 4321-2, , 2776-05 ####[facility] LABORATORYCLIA [id number] [place] [address] [place] Chloride [Moles/Vol] 96 mmol/L Low 98-107 [facility] Comment on above: Order Comment: Speci men Type: BLOOD SPECIMENOrdering Facility: [facility] Address: [address] [place] [address] Performed By: #### 2 4321-2, , 2776-05 ####[facility] LABORATORYCLIA [id number] [place] [address] [place] CO2 [Moles/Vol] 31 mmol/L High 22-30 [facility] Comment on above: Order Comment: Speci men Type: BLOOD SPECIMENOrdering Facility: [facility] Address: [address] [place] [address] Performed By: #### 2 4321-2, , 2776-05 ####[facility]CL[facility] [id number] [place] [id number] [place] OF [facility] Creatinine [Mass/Vol] 0.75 mg/dL Normal 0.58-0.96 [facility] Comment on above: Order Comment: Speci [facility] Type: BLOOD SPECIMENOrdering Facility: [facility] Address: [address] [place] [address] Performed By: #### 2 4321-2, , 2776-05 ####[facility] [place] [id number] [address] Creatinine and Glomerular filtration rate.predicted panel (S/P/Bld) 77 mL/min/1.73m??? Normal >=60 [facility] Comment on above: Order Comment: [facility] Type: BLOOD SPECIMENOrdering Facility: [facility] Address: [address] [place] [address] Result Comment: Michael mated Glomerular Filtration Rate [...] By: #### 2 4321-2, , 2776-05 ####[facility] LABORATORYIA [id number] [address] STATES OF [facility] Glucose [Mass/Vol] 88 mg/dL Normal 74-99 [facility] Comment on above: Order Comment: Speci [facility] Type: BLOOD SPECIMENOrdering Facility: [facility] Address: [address] [place] [address] Result Comment: The [place] Diabetes Association (ADA) provides guidance for cutoff [...] Standards of Medical Care in Diabetes 2016, [place] [employer] Association. Diabetes Care. 2016.39(Suppl 1). Performed By: #### 2 4321-2, , 2776-05 ####[facility] LABORATORYCLIA [id number] [place] [address] [place] Potassium [Moles/Vol] 3.7 mmol/L Normal 3.7-5.1 [facility] Comment on above: Order Comment: Christopher hurd Type: BLOOD SPECIMENOrdering Facility: [facility] Address: [address] [place] [address] Performed By: #### 2 4321-2, , 2776-05 ####[facility] LABORATORYCLIA [id number] [place] [address] [place] Sodium [Moles/Vol] 137 mmol/L Normal 136-144 [facility] Comment on above: Order Comment: Christopher hurd Type: BLOOD SPECIMENOrdering Facility: [facility] Address: [address] [place] [address] Performed By: #### 2 4321-2, , 2776-05 ####[facility] LABORATORYCLIA [id number] [place] [id number] [place] Urea nitrogen [Mass/Vol] 15 mg/dL Normal 7-21 [facility] Comment on above: Order Comment: Christopher hurd Type: BLOOD SPECIMENOrdering Facility: [facility] Address: [address] [place] [address] Performed By: #### 2 4321-2, , 2776-05 ####[facility] LABORATORYCLIA [id number] [place] [address] [place] CBC W/Diff, Automatedon 02- Absolute Neut Normal 2.0-7.[address] [facility] Comment on above: Result Comment: Canc elled via OM: Order cancelled - Patient discharged Performed By: #### L 500.2500, L100.0100 ####[facility] [address] [place], [address] HCT Normal 37-[address] [facility] Comment on above: Result Comment: Canc elled via OM: Order cancelled - Patient discharged Performed By: #### L 500.2500, L100.0100 ####[facility] [address] [place], [address] HGB Normal 12.0-15.[address] [facility] Comment on above: Result Comment: Canc elled via OM: Order cancelled - Patient discharged Performed By: #### L 500.2500, L100.0100 ####[facility] [address] [place], [address] MCH Normal 27.0-32.[address] [facility] Comment on above: Result Comment: Canc elled via OM: Order cancelled - Patient discharged Performed By: #### L 500.2500, L100.0100 ####[facility] [address] [place], [address] MCHC Normal 32-[address] [facility] Comment on above: Result Comment: Canc elled via OM: Order cancelled - Patient discharged Performed By: #### L 500.2500, L100.0100 ####[facility] [address] [place] [place], [address] MCV Normal 81-[address] [facility] Comment on above: Result Comment: Canc elled via OM: Order cancelled - Patient discharged Performed By: #### L 500.2500, L100.0100 ####[facility] [address] [place], [address] NEUT% Normal 47-[address] [facility] Comment on above: Result Comment: Canc elled via OM: Order cancelled - Patient discharged Performed By: #### L 500.2500, L100.0100 ####[facility] [address] [place], [address] PLT Normal 150-[address] [facility] Comment on above: Result Comment: Canc elled via OM: Order cancelled - Patient discharged Performed By: #### L 500.2500, L100.0100 ####[facility] [address] [place], [address] RBC Normal 4.2-5.[address] [facility] Comment on above: Result Comment: Canc elled via OM: Order cancelled - Patient discharged Performed By: #### L 500.2500, L100.0100 ####[facility] [address], [address] RDW CV Normal 11.6-14.[address] [facility] Comment on above: Result Comment: Canc elled via OM: Order cancelled - Patient discharged Performed By: #### L 500.2500, L100.0100 ####[facility] [address] [place] [place], [address] RDW SD Normal 35.1-43.[address] [facility] Comment on above: Result Comment: Canc elled via OM: Order cancelled - Patient discharged Performed By: #### L 500.2500, L100.0100 ####[facility] [address] [place] [place], [address] WBC Normal 4.4-11.[address] [facility] Comment on above: Result Comment: Canc elled via OM: Order cancelled - Patient discharged Performed By: #### L 500.2500, L100.0100 ####[facility] [address] [place], [address] CBC panel Auto (Bld)on 06-28 Erythrocyte distribution width (RBC) [Ratio] 14.7 % Normal 11.5-15.0 [facility] Comment on above: Order Comment: Speci men Type: BLOOD SPECIMENOrdering Facility: [facility] Address: [address] [place] [address] Performed By: #### 5 8410-2 ####[facility] LABORATORYCLIA [id number] [address] Hematocrit (Bld) [Volume fraction] 28.8 % Low 36.0-46.0 [facility] Comment on above: Order Comment: Speci men Type: BLOOD SPECIMENOrdering Facility: [facility] Address: [address] [place] [address] Performed By: #### 5 8410-2 ####[facility] LABORATORYCLIA [id number] [address] OF [facility] Hemoglobin (Bld) [Mass/Vol] 9.3 g/dL Low 11.5-15.5 [facility] Comment on above: Order Comment: Speci men Type: BLOOD SPECIMENOrdering Facility: [facility] Address: [address] [place] [address] Performed By: #### 5 8410-2 ####[facility] LABORATORYCLIA [id number] [address] MCH (RBC) [Entitic mass] 30.4 pg Normal 26.0-34.0 [facility] Comment on above: Order Comment: Speci men Type: BLOOD SPECIMENOrdering Facility: [facility] Address: [address] [place] [address] Performed By: #### 5 8410-2 ####[facility] LABORATORYCLIA [id number] [address] [place] MCHC (RBC) [Mass/Vol] 32.3 g/dL Normal 30.5-36.0 [facility] Comment on above: Order Comment: Speci men Type: BLOOD SPECIMENOrdering Facility: [facility] Address: [address] [place] [address] Performed By: #### 5 8410-2 ####[facility] LABORATORYCLIA [id number] [place] [address] [place] MCV (RBC) [Entitic vol] 94.1 fL Normal 80.0-100.0 [facility] Comment on above: Order Comment: Speci men Type: BLOOD SPECIMENOrdering Facility: [facility] Address: [address] [place] [address] Performed By: #### 5 8410-2 ####[facility] LABORATORYCLIA [id number] [place] [address] [place] Nucleated RBC (Bld) [#/Vol] 10*3/uL Normal <0.01 [facility] Comment on above: Order Comment: Speci men Type: BLOOD SPECIMENOrdering Facility: [facility] Address: [address] [place] [address] Performed By: #### 5 8410-2 ####[facility]ORATORYCLIA [id number] [address] [place] Platelet mean volume (Bld) [Entitic vol] 9.2 fL Normal 9.0-12.7 [facility] Comment on above: Order Comment: Speci men Type: BLOOD SPECIMENOrdering Facility: [facility] Address: [address] [place] [address] Performed By: #### 5 8410-2 ####[facility]ORATORYCLIA [id number] [address] [place] Platelets (Bld) [#/Vol] 262 10*3/uL Normal 150-400 [facility] Comment on above: Order Comment: Speci men Type: BLOOD SPECIMENOrdering Facility: [facility] Address: [address] [place] [address] Performed By: #### 5 8410-2 ####[facility]ORATORYCLIA [id number] [address] [place] RBC (Bld) [#/Vol] 3.06 10*6/uL Low 3.90-5.20 [facility] Comment on above: Order Comment: Speci men Type: BLOOD SPECIMENOrdering Facility: [facility] Address: [address] [place] [address] Performed By: #### 5 8410-2 ####[facility]ORATORYCLIA [id number] [place] [address] [place] WBC (Bld) [#/Vol] 6.94 10*3/uL Normal 3.70-11.00 [facility] Comment on above: Order Comment: Speci men Type: BLOOD SPECIMENOrdering Facility: [facility] Address: [facility] [place] [address] Performed By: #### 5 8410-2 ####[facility] LABORATORYCLIA [id number] [place] [address] [facility] CONSULTon 06-28-2024 CONSULT HNO ID: [id number] Author: LELAND REILLY PA Service: Geriatrics Author Type: Physician Structural Metal Worker Type: Consults Filed: 06/28/2024 11:10 Note Text: [...] Patient fell at home, was taken to [facility] ED for evaluation. Noted patient has had multiple recent falls. 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 Was transferred to [facility] for trauma evaluation. Patient was admitted under trauma to ICU. Neurosurgery consulted for prior L2-3 vertebroplasty with retropulsion of bone fragments and R L1 and R L2 TP fractures, recommended further imaging and bedrest. Orthopedic surgery consulted for R fifth metatarsal fracture, recommended non-operative management. Patient was transferred to [facility] on 06/27. Determined to be HIGH RISK [...] W/COLLJ SP (more content not included)... Normal [facility] Calcium.ionized [Moles/Vol]o n 06-28-2024 Calcium.ionized (BldV) [Mass/Vol] 1.14 mmol/L Normal 1.08-1.30 [facility] Comment on above: Order Comment: Speci men Type: BLOOD SPECIMENOrdering Facility: [facility] Address: [address] [place] [address] Performed By: #### 1 995-0 ####[facility] LABORATORYCLIA [id number] [address] STATES OF [facility] Calcium.ionized adjusted to pH 7.4 (Bld) [Moles/Vol] 1.17 mmol/L Normal 1.08-1.30 [facility] Comment on above: Order Comment: Speci men Type: BLOOD SPECIMENOrdering Facility: [facility] Address: [address] [place] [address] Performed By: #### 1 995-0 ####[facility] LABORATORYCLIA [id number] [place] [address] [place] MRI LUMBAR SPINE WO IVCONon 06-28-2024 MRI LUMBAR SPINE WO IVCON * * *Final Report* * * DATE OF EXAM: Jun 28 2024 8:29AM [facility] 0303 - MRI LUMBAR SPINE WO IVCON [...] of canal compromise. Anatomic Lumbar Variant: None Senior Front End Web Developer: CLINT Transcribe Date/Time: Jun 28 2024 8:50A Dictated by : ANGUS BARTLETT MD This examination was interpreted and the report reviewed and electronically signed by: ANGUS BARTLETT MD on Jun 28 2024 9:02AM EST [id number] CN Normal [facility] Magnesium [Mass/Vol] 1.7 mg/dL Normal 1.7-2.3 [facility] Comment on above: Order Comment: Speci men Type: BLOOD SPECIMENOrdering Facility: [facility] Address: [address] [place] [address] Performed By: #### 2 4321-2, , 2776-05 ####[facility] LABORATORYCLIA [id number] [place] [address] [place] Phosphate [facility] [place] 06-28 Phosphate [Mass/Vol] 3.7 mg/dL Normal 2.7-4.8 [facility] Comment on above: Order Comment: Speci [facility] Type: BLOOD SPECIMENOrdering Facility: [facility] Address: [address] [place] [address] Performed By: #### 2 4321-2, , 2776-05 ####[facility] LABORATORYCLIA [id number] [place] [address] [place] 25(OH)D3 [facility] [place] 2024 25-hydroxyvitamin D3 [Mass/Vol] 35.2 ng/mL Normal >=30.0 [facility] Comment on above: Order Comment: Speci [facility] Type: BLOOD SPECIMENOrdering Facility: [facility] Address: [address] [place] [address] Result Comment: Clas sification of 25 [place] Vitamin D status: Deficiency: <= 20.0 ng/ml. Insufficiency: 21.0-29.0 ng/ml. Sufficiency: >= 30.0 ng/ml. Performed By: #### 1 989-3 ####[facility] LABORATORYCLIA [id number] [address] STATES OF [facility] ALLIED HEALTHon 06-27-2024 ALLIED HEALTH HNO ID: [id number] Author: ROBIN PABLO RT(Peter) Service: Radiology Author Type: Technologist Type: Allied [...] PATIENT PRESENTS WITH AN IMPLANTABLE OR ATTACHED GEOSPATIAL IMAGERY INTELLIGENCE ANALYST: No ALLERGIES: Reviewed and unchanged CONTRAST ALLERGY: [...] June 27, 2024 TIME: 6:07 AM Normal [facility] CBC panel Auto (Bld)on 06-27 Erythrocyte distribution width (RBC) [Ratio] 14.6 % Normal 11.5-15.0 [facility] Comment on above: Order Comment: Speci men Type: BLOOD SPECIMENOrdering Facility: [facility] Address: [address] [place] [address] Performed By: #### 5 8410-2 ####[facility] LABORATORYCLIA [id number] [address] OF [facility] Hematocrit (Bld) [Volume fraction] 29.9 % Low 36.0-46.0 [facility] Comment on above: Order Comment: Speci men Type: BLOOD SPECIMENOrdering Facility: [facility] Address: [address] [place] [address] Performed By: #### 5 8410-2 ####[facility] LABORATORYCLIA [id number] [address] [place] Hemoglobin (Bld) [Mass/Vol] 9.5 g/dL Low 11.5-15.5 [facility] Comment on above: Order Comment: Speci men Type: BLOOD SPECIMENOrdering Facility: [facility] Address: [address] [place] [address] Performed By: #### 5 8410-2 ####[facility] LABORATORYCLIA [id number] [address] [place] MCH (RBC) [Entitic mass] 29.9 pg Normal 26.0-34.0 [facility] Comment on above: Order Comment: Speci men Type: BLOOD SPECIMENOrdering Facility: [facility] Address: [address] [place] [address] Performed By: #### 5 8410-2 ####[facility] LABORATORYCLIA [id number] [address] [place] MCHC (RBC) [Mass/Vol] 31.8 g/dL Normal 30.5-36.0 [facility] Comment on above: Order Comment: Speci men Type: BLOOD SPECIMENOrdering Facility: [facility] Address: [address] [place] [address] Performed By: #### 5 8410-2 ####[facility] LABORATORYCLIA [id number] [address] [place] MCV (RBC) [Entitic vol] 94.0 fL Normal 80.0-100.0 [facility] Comment on above: Order Comment: Speci men Type: BLOOD SPECIMENOrdering Facility: [facility] Address: [address] [place] [address] Performed By: #### 5 8410-2 ####[facility] LABORATORYCLIA [id number] [address] OF [facility] Nucleated RBC (Bld) [#/Vol] 10*3/uL Normal <0.01 [facility] Comment on above: Order Comment: Speci men Type: BLOOD SPECIMENOrdering Facility: [facility] Address: [address] [place] [address] Performed By: #### 5 8410-2 ####[facility] LABORATORYCLIA [id number] [address] Platelet mean volume (Bld) [Entitic vol] 9.3 fL Normal 9.0-12.7 [facility] Comment on above: Order Comment: Speci men Type: BLOOD SPECIMENOrdering Facility: [facility] Address: [address] [place] [address] Performed By: #### 5 8410-2 ####[facility] LABORATORYCLIA [id number] [address] [place] Platelets (Bld) [#/Vol] 264 10*3/uL Normal 150-400 [facility] Comment on above: Order Comment: Speci men Type: BLOOD SPECIMENOrdering Facility: [facility] Address: [address] [place] [address] Performed By: #### 5 8410-2 ####[facility] LABORATORYCLIA [id number] [address] STATES OF [facility] RBC (Bld) [#/Vol] 3.18 10*6/uL Low 3.90-5.20 [facility] Comment on above: Order Comment: Specsteve men Type: BLOOD SPECIMENOrdering Facility: [facility] Address: [address] [place] [address] Performed By: #### 5 8410-2 ####[facility] LABORATORYCLIA [id number] [place] [id number] [facility] WBC (Bld) [#/Vol] 6.47 10*3/uL Normal 3.70-11.00 [facility] Comment on above: Order Comment: Speci men Type: BLOOD SPECIMENOrdering Facility: [facility] Address: [address] [place] [address] Performed By: #### 5 8410-2 ####[facility] LABORATORYCLIA [id number] [address] CONSULTon 06-27-2024 CONSULT HNO ID: [id number] Author: GILL ADORNO DPM Service: Orthopaedic Surgery Author Type: Physician Type: Consults Filed: 06/28/2024 18:51 Note Text: ORTHOPAEDIC SURGERY CONSULT Pt: JOYCE SOLOMON Date of Consultation: 06/27/2024 Physician Consulted: Dr. Adorno Reason for Consultation: Right fifth metatarsal fracture 89 year old female presented to [facility] ED on 06/27/2024 for evaluation by [...] Tonsillectomy Allergies: Sutures; Actonel [Risedronate Sodium]; Adhes. Eacp-Vkvj-Ektuzyeant um; Beets; Cantaloupe; Eggplant; Fosamax [Alendronate Sodium]; [...] gall saad (more content not included)... Normal [facility] CONSULT HNO ID: [id number] Author: KALYAN KENNEDY PA-C Service: Neurosurgery Author Type: Physician Structural Metal Worker Type: Consults Filed: 06/27/2024 05:42 Note Text: [...] female presenting as a trauma transfer from [facility] following a mechanical [...] GI Upset States had GI bleed Adhes. Htbm-Ziur-Wf* Beets Rash raised injection site when allergy [...] mg ORA (more content not included)... Normal [facility] CT ABD/PEL W IVCONon 025 CT ABD/PEL W IVCON * * *Final Report* * * DATE OF EXAM: Jun 27 2024 6:20AM [facility] 0530 - CT ABD/PEL W [...] Bibasilar opacities possible pneumonia on the right. Senior Front End Web Developer: PSCB Transcribe Date/Time: Jun 27 2024 7:30A Dictated by : CHARLIE DELEON MD This examination was interpreted and the report reviewed and electronically signed by: CHARLIE DELEON MD on Jun 27 2024 7:50AM EST [id number] CN Normal [facility] CT LUMBAR SPINE W RECON DATA -NBon 06-27-2024 CT LUMBAR SPINE W RECON DATA -NB * * *Final Report* * * DATE OF EXAM: Jun 27 2024 6:20AM [facility] 0481 - CT LUMBAR SPINE [...] Bibasilar opacities possible pneumonia on the right. Senior Front End Web Developer: [facility] Transcribe Date/Time: Jun 27 2024 7:30A Dictated by : CHARLIE DELEON MD This examination was interpreted and the report reviewed and electronically signed by: CHARLIE DELEON MD on Jun 27 2024 7:50AM EST [id number] CN Normal [facility] CT THORACIC SPINE WO IVCONon 06-27-2024 CT THORACIC SPINE WO IVCON * * *Final Report* * * DATE OF EXAM: Jun 27 2024 6:20AM [facility] 0514 - CT THORACIC SPINE [...] Bibasilar opacities possible pneumonia on the right. Senior Front End Web Developer: PSCB Transcribe Date/Time: Jun 27 2024 7:30A Dictated by : CHARLIE DELEON MD This examination was interpreted and the report reviewed and electronically signed by: CHARLIE DELEON MD on Jun 27 2024 7:50AM EST [id number] CN Normal [facility] CTA HEAD W IVCONon 5 CTA HEAD W IVCON * * *Final Report* * * DATE OF EXAM: Jun 27 2024 6:20AM [facility] 0022 - CTA HEAD W [...] Circulation: No large vessel occlusion or aneurysm. Press Tender Smoke Signal (topogram) images: No significant findings. IMPRESSION: 1. No intracranial large vessel occlusion or aneurysm. 2. No blunt vascular injury or hemodynamically significant stenosis of the common carotid, internal carotid, or vertebral arteries. Arterial blood flow was measured to detect acute large vessel occlusion by computer aided detection software: Not Performed. Concordance between software and imaging review: Not Applicable. Senior Front End Web Developer: PSCB Transcribe Date/Time: Jun 27 2024 6:45A Dictated by : JOSE LÓPEZ MD This examination was interpreted and the report reviewed and electronically signed by: JOSE LÓPEZ MD on Jun 27 2024 6:51AM EST [id number] CN Normal [facility] CTA NECK W IVCONon 5 CTA NECK W IVCON * * *Final Report* * * DATE OF EXAM: Jun 27 2024 6:20AM [facility] 0024 - CTA NECK W [...] Circulation: No large vessel occlusion or aneurysm. Press Tender Smoke Signal (topogram) images: No significant findings. IMPRESSION: 1. No intracranial large vessel occlusion or aneurysm. 2. No blunt vascular injury or hemodynamically significant stenosis of the common carotid, internal carotid, or vertebral arteries. Arterial blood flow was measured to detect acute large vessel occlusion by computer aided detection software: Not Performed. Concordance between software and imaging review: Not Applicable. Senior Front End Web Developer: PSCB Transcribe Date/Time: Jun 27 2024 6:45A Dictated by : JOSE LÓPEZ MD This examination was interpreted and the report reviewed and electronically signed by: JOSE LÓPEZ MD on Jun 27 2024 6:51AM EST [id number] CN Normal [facility] Calcium.ionized [Moles/Vol]o n 06-27-2024 Calcium.ionized (BldV) [Mass/Vol] 1.11 mmol/L Normal 1.08-1.30 [facility] Comment on above: Order Comment: Speci men Type: BLOOD SPECIMENOrdering Facility: [facility] Address: [address] [place] [address] Performed By: #### 1 995-0 ####[facility] LABORATORYCLIA [id number] [address] STATES OF [facility] Calcium.ionized adjusted to pH 7.4 (Bld) [Moles/Vol] 1.14 mmol/L Normal 1.08-1.30 [facility] Comment on above: Order Comment: Speci men Type: BLOOD SPECIMENOrdering Facility: [facility] Address: [address] [place] [address] Performed By: #### 1 995-0 ####[facility] LABORATORYCLIA [id number] [place] [address] [place] Comprehensive metabolic 2000 panelon 06-27-2024 Albumin [Mass/Vol] 3.1 g/dL Low 3.9-4.9 [facility] Comment on above: Order Comment: Speci men Type: BLOOD SPECIMENOrdering Facility: [facility] Address: [address] [place] [address] Performed By: #### 2 777-1, 75610-4, 3040-3, 13943-7 ####[facility] LABORATORYCLIA [id number] [address] [place] ALP [Catalytic activity/Vol] 56 U/L Normal 34-123 [facility] Comment on above: Order Comment: Speci men Type: BLOOD SPECIMENOrdering Facility: [facility] Address: [address] [place] [address] Performed By: #### 2 777-1, 77185-4, 3040-3, 09189-4 ####[facility] LABORATORYCLIA [id number] [address] STATES OF [facility] ALT With P-5'-P [Catalytic activity/Vol] 10 U/L Normal 7-38 [facility] Comment on above: Order Comment: Speci men Type: BLOOD SPECIMENOrdering Facility: [facility] Address: [address] [place] [address] Performed By: #### 2 777-1, 51344-5, 0-3, 65053-7 ####[facility] LABORATORYCLIA [id number] [address] STATES OF [facility] Anion gap [Moles/Vol] 9 mmol/L Normal 8-15 [facility] Comment on above: Order Comment: Speci men Type: BLOOD SPECIMENOrdering Facility: [facility] Address: [address] [place] [address] Performed By: #### 2 777-1, 50041-7, 3039-3, 79050-3 ####[facility] LABORATORYCLIA [id number] [address] STATES OF [facility] AST With P-5'-P [Catalytic activity/Vol] 22 U/L Normal 13-35 [facility] Comment on above: Order Comment: Speci men Type: BLOOD SPECIMENOrdering Facility: [facility] Address: [address] [place] [address] Performed By: #### 2 777-1, 28570-4, 0-3, 99281-7 ####[facility] LABORATORYCLIA [id number] [place] [id number] [place] Bilirubin [Mass/Vol] 0.4 mg/dL Normal 0.2-1.3 [facility] Comment on above: Order Comment: Speci men Type: BLOOD SPECIMENOrdering Facility: [facility] Address: [address] [place] [address] Performed By: #### 2 777-1, 51956-7, 3040-3, 94826-1 ####[facility] LABORATORYCLIA [id number] [place] [address] [place] Calcium [Mass/Vol] 8.5 mg/dL Normal 8.5-10.2 [facility] Comment on above: Order Comment: Speci men Type: BLOOD SPECIMENOrdering Facility: [facility] Address: [address] [place] [address] Performed By: #### 2 777-1, 64358-0, 3040-3, 21818-5 ####[facility] LABORATORYCLIA [id number] [place] [address] [place] Chloride [Moles/Vol] 98 mmol/L Normal 98-107 [facility] Comment on above: Order Comment: Speci men Type: BLOOD SPECIMENOrdering Facility: [facility] Address: [address] [place] [address] Performed By: #### 2 777-1, , 3039-3, 41222-3 ####[facility] LABORATORYCLIA [id number] [place] [address] [place] CO2 [Moles/Vol] 31 mmol/L High 22-30 [facility] Comment on above: Order Comment: Speci men Type: BLOOD SPECIMENOrdering Facility: [facility] Address: [address] [place] [address] Performed By: #### 2 777-1, 99935-8, 304-3, 15310-9 ####[facility] LABORATORYCLIA [id number] [place] [address] [place] Creatinine [Mass/Vol] 0.86 mg/dL Normal 0.58-0.96 [facility] Comment on above: Order Comment: Speci men Type: BLOOD SPECIMENOrdering Facility: [facility] Address: [address] [place] [address] Performed By: #### 2 777-1, 30694-2, 3040-3, 38434-4 ####[facility] LABORATORYCLIA [id number] [address] [place] Creatinine and Glomerular filtration rate.predicted panel (S/P/Bld) 65 mL/min/1.73m??? Normal >=60 [facility] Comment on above: Order Comment: Christopher hurd Type: BLOOD SPECIMENOrdering Facility: [facility] Address: [address] [place] [address] Result Comment: Michael mated Glomerular Filtration Rate [...] actual GFR. Performed By: #### 2 777-1, 14304-0, 3040-3, 20659-4 ####[facility] [place] [id number] [place] [address] [place] Glucose [Mass/Vol] 88 mg/dL Normal 74-99 [facility] Comment on above: Order Comment: Christopher hurd Type: BLOOD SPECIMENOrdering Facility: [facility] Address: [address] [place] [address] Result Comment: The [place] Diabetes Association (ADA) provides guidance for cutoff [...] Standards of Medical Care in Diabetes 2016, [place] [employer]. Diabetes Care. 2016.39(Suppl 1). Performed By: #### 2 777-1, 16312-5, 3040-3, 06328-9 ####[facility] LABORATORYCLIA [id number] [place] [id number] [place] Potassium [Moles/Vol] 3.3 mmol/L Low 3.7-5.1 [facility] Comment on above: Order Comment: Speci men Type: BLOOD SPECIMENOrdering Facility: [facility] Address: [address] [place] [address] Performed By: #### 2 777-1, 77073-3, 3040-3, 48319-4 ####[facility] LABORATORYCLIA [id number] [place] [address] [place] Protein [Mass/Vol] 5.2 g/dL Low 6.3-8.0 [facility] Comment on above: Order Comment: Speci men Type: BLOOD SPECIMENOrdering Facility: [facility] Address: [address] [place] [address] Performed By: #### 2 777-1, 25311-1, 304-3, 47490-8 ####[facility] LABORATORYCLIA [id number] [address] STATES OF [facility] Sodium [Moles/Vol] 138 mmol/L Normal 136-144 [facility] Comment on above: Order Comment: Speci men Type: BLOOD SPECIMENOrdering Facility: [facility] Address: [address] [place] [address] Performed By: #### 2 777-1, 94109-0, 304-3, 59984-9 ####[facility] LABORATORYCLIA [id number] [place] [id number] [place] Urea nitrogen [Mass/Vol] 16 mg/dL Normal 7-21 [facility] Comment on above: Order Comment: Speci men Type: BLOOD SPECIMENOrdering Facility: [facility] Address: [address] [place] [address] Performed By: #### 2 777-1, 41947-8, 3040-3, 67520-2 ####[facility] LABORATORYCLIA [id number] [place] [address] [place] ED NOTEon 06-27-2024 ED NOTE HNO ID: [id number] Author: ROLA JIMENEZ, RN Service: Emergency Medicine Author Type: Registered Nurse Type: ED Notes Filed: 06/27/2024 16:39 Note Text: Pt placed on bedpan however did not have a bowel movement. Pads changed and pt given new sheet and pad. Some urine staining noted on pad. Normal [facility] ED NOTE HNO ID: [id number] Author: ROLA JIMENEZ RN Service: Emergency Medicine Author Type: Registered Nurse Type: ED Notes Filed: 06/27/2024 14:44 Note Text: Pt eating lunch tray Normal [facility] ED NOTE HNO ID: [id number] Author: ROLA JIMENEZ RN Service: Emergency Medicine Author Type: Registered Nurse Type: ED Notes Filed: 06/27/2024 13:56 Note Text: Pt requested BP cuff be removed Normal [facility] ED NOTE HNO ID: [id number] Author: MARTHA KYLE, ALBERT Service: Nursing Author Type: Registered Nurse Type: ED Notes Filed: 06/27/2024 00:14 Note Text: Spoke with Dr. Hernandez about pts Bps. He is aware and did say looking through history this is what the pt typically runs. Will continue to monitor. Normal [facility] ED PROV NOTEon 06-27-2024 ED PROV NOTE HNO ID: [id number] Author: NORMA WONG MD Service: Emergency Medicine Author Type: Physician Type: ED Provider Notes Filed: 06/27/2024 02:43 Note Text: ED Resident Continuation of Care Note June 27, 2024 1:50 AM Jocye Solomon was endorsed to me by Dr. Concepcion. In brief, the patient is an 89-year-old female transfer from [place] for trauma. Found to have left 3-8 [...] Gertrudis Hernandez MD Emergency Medicine Resident, PGY-3 [facility] This note was created using [employer] dictation software. Every attempt was made to proofread, however you may find errors regardless of how insignificant they may be. They are purely unintentional and if there are any concerns regarding this dictation, please do not hesitate to call the dictating provider for clarification. GERTRUDIS HERNANDEZ 06/27/24 0152 MD [place] D 06/27/24 0243 Normal [facility] Ethanol SerPl-mCncon 025 Ethanol [Mass/Vol] mg/dL Normal <11 [facility] Comment on above: Order Comment: Speci men Type: BLOOD SPECIMENOrdering Facility: [facility] Address: [address] [place] [address] Performed By: #### 5 643-2 ####[facility] LABORATORYCLIA [id number] [address] OF [facility] HISTORY PHYSICALon HISTORY PHYSICAL HNO ID: [id number] Author: AYAZ DOE MD Service: General Surgery [...] APPENDECTOMY CHOLECYSTECTOMY (more content not included)... Normal [facility] HISTORY PHYSICAL HNO ID: [id number] Author: KAYLEEN BELTRAN MD Service: General Surgery Author Type: Physician Type: H&P Filed: 06/27/2024 14:21 Note Text: [facility]: 06/26/[facility]24 ARRIVAL TIME: PM [...] GI Upset States had GI bleed Adhes. Zfsx-Wqjz-Xo* Beets Rash raised injection site when allergy [...] 59 63 (more content not included)... Normal [facility] Lipase SerPl-cCncon 06-27-19 25 Lipase [Catalytic activity/Vol] 14 U/L Low 16- [facility] Comment on above: Order Comment: Christopher hurd Type: BLOOD SPECIMENOrdering Facility: [facility] Address: [address] [place] [address] Performed By: #### 2 777-1, 86080-0, 3040-3, 32653-8 ####[facility] LABORATORYCLIA [id number] [address] STATES OF [facility] [facility] Magnesium [Mass/Vol] 1.7 mg/dL Normal 1.7-2.3 [facility] Comment on above: Order Comment: Christopher hurd Type: BLOOD SPECIMENOrdering Facility: [facility] Address: [address] [place] [address] Performed By: #### 2 777-1, 19921-4, 3040-3, 94091-6 ####[facility] LABORATORYCLIA [id number] [address] [place] PT panel Coag (PPP)on 2024 INR Coag (PPP) [Relative time] 1.0 {INR} Normal 0.9-1.3 [facility] Comment on above: Order Comment: Christopher hurd Type: BLOOD SPECIMENOrdering Facility: [facility] Address: [address] [place] [address] Result Comment: Nathalie min K Antagonist (VKA) Therapeutic Range: INR 2 to 3 (Target INR of 2.5) Note: For patients treated with VKA drugs, such as warfarin, the [place] [employer] 2012 Guideline recommends [...] Chest 2012, 141:7S-47S Cam RA, et al. [facility] 2017, 70: 252-289 Performed By: #### 1 4979-9, 40717-9 ####[facility]ITAL[facility]IA [id number] [place] [id number] [place] PT Coag (PPP) [Time] 11.2 s Normal 9.7-13.0 [facility] Comment on above: Order Comment: Speci men Type: BLOOD SPECIMENOrdering Facility: [facility] Address: [address] [place] [address] Performed By: #### 1 4979-9, 98666-0 ####[facility]ITALCLIA [id number] [place] [address] [place] Phosphate SerPl-mCncon 06-27 Phosphate [Mass/Vol] 3.5 mg/dL Normal 2.7-4.8 [facility] Comment on above: Order Comment: Speci men Type: BLOOD SPECIMENOrdering Facility: [facility] Address: [address] [place] [address] Performed By: #### 2 777-1, 63647-5, 3040-3, 82559-2 ####[facility]ITALCLIA [id number] [place] [address] [place] STAPHYLOCOCCUS AUREUS AND MR SA SCREEN, PCR, NASALon 06-27-2024 S. aureus and MRSA panel RHYS+probe (Nose) Not detected Normal Not Detected [facility] Comment on above: Order Comment: Speci men Type: SWABOrdering Facility: [facility] Address: [address] [place] [address] Performed By: #### S APCR ####[facility] LABORATORYCLIA [id number] [place] [address] [place] TOXICOLOGY SCREEN, ROUTINE U RINEon 06-27-2024 Amphetamines Confirm (U) [Mass/Vol] Negative Normal Negative [facility] Comment on above: Order Comment: Speci men Type: URINE SPECIMENOrdering Facility: [facility] Address: [address] [place] [address] Result Comment: Cuto ff threshold at 1000 ng/mL. Performed By: #### U TOX2 ####[facility] LABORATORYCLIA [id number] [place] [address] [place] BARBITURATES, URINE Negative Normal Negative [facility] Comment on above: Order Comment: Speci men Type: URINE SPECIMENOrdering Facility: [facility] Address: [address] [place] [address] Result Comment: Cuto ff threshold at 200 ng/mL. Performed By: #### U TOX2 ####[facility] LABORATORYCLIA [id number] [place] [address] [place] BENZODIAZEPINES, UR Negative Normal Negative [facility] Comment on above: Order Comment: Speci men Type: URINE SPECIMENOrdering Facility: [facility] Address: [address] [place] [address] Result Comment: Cuto ff threshold at 200 ng/mL. Performed By: #### U TOX2 ####[facility]ORATORYCLIA [id number] [place] [address] [place] Cannabinoids Screen Ql (U) Negative Normal Negative [facility] Comment on above: Order Comment: Speci men Type: URINE SPECIMENOrdering Facility: [facility] Address: [address] [place] [address] Result Comment: Cuto ff threshold at 50 ng/mL. Performed By: #### U TOX2 ####[facility]ORATORYCLIA [id number] [place] [address] [place] Cocaine Ql (U) Negative Normal Negative [facility] Comment on above: Order Comment: Speci men Type: URINE SPECIMENOrdering Facility: [facility] Address: [address] [place] [address] Result Comment: Cuto ff threshold at 300 ng/mL. Performed By: #### U TOX2 ####[facility] LABORATORYCLIA [id number] [place] [address] [place] Ethanol (U) [Mass/Vol] <11 Normal <11 [facility] Comment on above: Order Comment: Speci men Type: URINE SPECIMENOrdering Facility: [facility] Address: [address] [place] [address] Performed By: #### U TOX2 ####[facility] LABORATORYCLIA [id number] [address] [place] Opiates Screen Ql (U) Negative Normal Negative [facility] Comment on above: Order Comment: Speci men Type: URINE SPECIMENOrdering Facility: [facility] Address: [address] [place] [address] Result Comment: Cuto ff threshold at 300 ng/mL. Performed By: #### U TOX2 ####[facility] LABORATORYCLIA [id number] [address] STATES [facility] oxyCODONE cutoff Screen (U) [Mass/Vol] Negative Normal Negative [facility] Comment on above: Order Comment: Speci men Type: URINE SPECIMENOrdering Facility: [facility] Address: [address] [place] [address] Performed By: #### U TOX2 ####[facility] LABORATORYCLIA [id number] [address] [place] Phencyclidine Ql (U) Negative Normal Negative [facility] Comment on above: Order Comment: Speci men Type: URINE SPECIMENOrdering Facility: [facility] Address: [address] [place] [address] Result Comment: Cuto ff threshold at 25 ng/mL. Performed By: #### U TOX2 ####[facility]ORATORYCLIA [id number] [address] [place] TYPE + SCREENon 06-27-2024 ABO A Normal [facility] Comment on above: Order Comment: Speci men Type: BLOOD SPECIMENOrdering Facility: [facility] Address: [address] [place] [address] Performed By: #### T SCR ####[facility] BLOOD BANKCLIA [id number] [place] [address] [facility] Rh Nom (Bld) Positive Normal [facility] Comment on above: Order Comment: Speci men Type: BLOOD SPECIMENOrdering Facility: [facility] Address: [address] [place] [address] Performed By: #### T SCR ####[facility] BLOOD BANKCLIA [id number] [place] [id number] [facility] TYPE AND SCREEN EXPIRATION 06/30/2024 23:59 Normal [facility] Comment on above: Order Comment: Speci men Type: BLOOD SPECIMENOrdering Facility: [facility] Address: [address] [place] [address] Performed By: #### T SCR ####[facility] BLOOD BANKCLIA [id number] [address] XR CHEST 2V FRONTAL/LATon XR CHEST [...] described above. A follow-up exam is recommended. Senior Front End Web Developer: [facility] Transcribe Date/Time: Jun 27 2024 4:05P Dictated by : DENYS RILEY MD This examination was interpreted and the report reviewed and electronically signed by: DENYS RILEY MD on Jun 27 2024 4:07PM EST [id number] CN Normal [facility] XR FOOT 3V AP/LAT/OBL LTon 0 06-27-2024 [...] foreign body. IMPRESSION: No acute osseous abnormality. Senior Front End Web Developer: [facility]ITAL[facility] Transcribe Date/Time: Jun 28 2024 7:40A Dictated by : VITO SALCIDO MD This examination was interpreted and the report reviewed and electronically signed by: VITO SALCIDO MD on Jun 28 2024 7:43AM EST [id number] CN Normal [facility] aPTT PPPon 06-27-2024 aPTT Coag (PPP) [Time] 25.9 s Normal 23.0-32.4 [facility] Comment on above: Order Comment: Speci men Type: BLOOD SPECIMENOrdering Facility: [facility] Address: [address] [place] [address] Performed By: #### 1 4979-9, 10609-4 ####[facility] LABORATORYCLIA [id number] [place] [address] [place] 12 Lead EKGon 06-26-2024 12 Lead EKG Normal [facility] Absolute lymphocyte countOrd ered By: Jaiden Fontaine on 06-26-2024 Lymphocytes Auto (Unsp spec) [#/Vol] 0.91 10*3/uL 0.83-4.[address] [facility] Absolute neutrophil countOrd ered By: Jaiden Fontaine on 06-26-2024 Absolute neutrophil count 5.7 X10^3/uL 2.0-7.[address] [facility] Automated lymphocyte count a s percentage of total leukocytesOrdered By: Jaiden Fontaine on 06-26-2024 Lymphocytes/100 WBC Auto (Unsp spec) 12.4 % Low 19-[address] [facility] Basic Metabolic Profile (BMP )on 06-26-2024 BUN/CRE 20.1 RATIO High 10-[address] [facility] Comment on above: Order Comment: 'TROP ' Serial specimen #1, #2 or #3: 1 Performed By: #### L 500.2500, L100.0100, L501.4020 ####[facility] [address] [place], [address] CA,Total 9.7 mg/dL Normal 8.5-10.[address] [facility] Comment on above: Order Comment: 'TROP ' Serial specimen #1, #2 or #3: 1 Performed By: #### L 500.2500, L100.0100, L501.4020 ####[facility] [address] [place] [place], [address] Chloride [Moles/Vol] 97 mmol/L Low 98-107 [facility] Comment on above: Order Comment: 'TROP ' Serial specimen #1, #2 or #3: 1 Performed By: #### L 500.2500, L100.0100, L501.4020 ####[facility] [address] [place], [address] CO2 [Moles/Vol] 33.0 mmol/L High 21.0-32.[address] [facility] Comment on above: Order Comment: 'TROP ' Serial specimen #1, #2 or #3: 1 Performed By: #### L 500.2500, L100.0100, L501.4020 ####[facility] [address] [place], [address] Creatinine [Mass/Vol] 0.89 mg/dL Normal 0.55-1.02 [facility] Comment on above: Order Comment: 'TROP ' Serial specimen #1, #2 or #3: 1 Result Comment: The validity of the calculated GFR GFRAA in patients over70 years has not been determined. Clinical correlation isessential. Performed By: #### L 500.2500, L100.0100, L501.4020 ####[facility] [address] [place], [address] ECRCL 39.73 ml/min Normal [facility] Comment on above: Order Comment: 'TROP ' Serial specimen #1, #2 or #3: 1 Performed By: #### L 500.2500, L100.0100, L501.4020 ####[facility] [address] [place] [place], [address] EST GFR - AA 77 mL/min Normal >[address] [facility] Comment on above: Order Comment: 'TROP ' Serial specimen #1, #2 or #3: 1 Result Comment: Afri can [place] GFR Calc Performed By: #### L 500.2500, L100.0100, L501.4020 ####[facility] [address] [place], [address] GAP 6 Normal 5-[address] [facility] Comment on above: Order Comment: 'TROP ' Serial specimen #1, #2 or #3: 1 Performed By: #### L 500.2500, L100.0100, L501.4020 ####[facility] [address] [place], [address] GFR/1.73 sq M.predicted among non-blacks MDRD (S/P/Bld) [Vol rate/Area] 63 mL/min/{1.73_m2} Normal >[address] [facility] Comment on above: Order Comment: 'TROP ' Serial specimen #1, #2 or #3: 1 Result Comment: Non- GFR Calc Performed By: #### L 500.2500, L100.0100, L501.4020 ####[facility] [address] [place], [address] Glucose [Mass/Vol] 114 mg/dL High 74-106 [facility] Comment on above: Order Comment: 'TROP ' Serial specimen #1, #2 or #3: 1 Result Comment: Fast ing Glucose result from 100 to 125 mg/dLsuggests IMPAIRED HOMEOSTASIS per A.D.A. criteria. Performed By: #### L 500.2500, L100.0100, L501.4020 ####[facility] [address] [place], [address] Potassium [Moles/Vol] 3.8 mmol/L Normal 3.5-5.1 [facility] Comment on above: Order Comment: 'TROP ' Serial specimen #1, #2 or #3: 1 Performed By: #### L 500.2500, L100.0100, L501.4020 ####[facility] [address] [place] [place], [address] Sodium [Moles/Vol] 136 mmol/L Normal 136-145 [facility] Comment on above: Order Comment: 'TROP ' Serial specimen #1, #2 or #3: 1 Performed By: #### L 500.2500, L100.0100, L501.4020 ####[facility] [address] [place], [address] Urea nitrogen [Mass/Vol] 18 mg/dL Normal 7-[address] [facility] Comment on above: Order Comment: 'TROP ' Serial specimen #1, #2 or #3: 1 Performed By: #### L 500.2500, L100.0100, L501.4020 ####[facility] [address] [place], [address] Basophil percentageOrdered B y: Jaiden Fontaine on 06-26-2024 Basophils/100 WBC (Bld) 0.7 % 0-1 [facility] Bilirubin Test strip Ql (U)O rdered By: Jaiden Fontaine on 06-26-2024 Bilirubin Ql (U) Negative Negative [facility] Blood urea nitrogen (BUN)/cr eatinine ratioOrdered By: Jaiden Fontaine on 06-26-2024 Blood urea nitrogen (BUN)/creatinine ratio 20.1 RATIO High 10-[address] [facility] Brain/Head without Contrasto n 06-26-2024 Brain/Head without Contrast Normal [facility] CBC W/Diff, Automatedon 06-12 Absolute Lymph 0.91 X10 3/uL Normal 0.83-4.[address] [facility] Comment on above: Performed By: #### L 500.2500, L100.0100, L501.4020 ####[facility] [address] [place] [place], [address] Absolute Neut 5.7 X10 3/uL Normal 2.0-7.[address] [facility] Comment on above: Performed By: #### L 500.2500, L100.0100, L501.4020 ####[facility] [address] [place], [address] Basophils/100 WBC (Bld) 0.7 % Normal 0-1 [facility] Comment on above: Performed By: #### L 500.2500, L100.0100, L501.4020 ####[facility] [address] [place], [address] Eosinophils/100 WBC (Bld) 0.7 % Normal 0-[address] [facility] Comment on above: Performed By: #### L 500.2500, L100.0100, L501.4020 ####[facility] [address] [place], [address] Erythrocyte distribution width (RBC) [Ratio] 15.2 % High 11.6-14.[address] [facility] Comment on above: Performed By: #### L 500.2500, L100.0100, L501.4020 ####[facility] [address] [place], [address] Hematocrit (Bld) [Volume fraction] 33.6 % Low 37-[address] [facility] Comment on above: Performed By: #### L 500.2500, L100.0100, L501.4020 ####[facility] [address] [place], [address] Hemoglobin (Bld) [Mass/Vol] 10.6 g/dL Low 12.0-15.[address] [facility] Comment on above: Performed By: #### L 500.2500, L100.0100, L501.4020 ####[facility] [address], [address] IG% 1.000 High 0.0-0.[address] [facility] Comment on above: Result Comment: IG% - Immature Granulocytes (promyelocytes, myelocytes andmetamyelocytes) > 1% indicates that a LEFT SHIFT is Present. Performed By: #### L 500.2500, L100.0100, L501.4020 ####[facility] [address] [place], [address] Lymphocytes/100 WBC (Bld) 12.4 % Low 19-[address] [facility] Comment on above: Performed By: #### L 500.2500, L100.0100, L501.4020 ####[facility] [address] [place], [address] MCH (RBC) [Entitic mass] 29.9 pg Normal 27.0-32.[address] [facility] Comment on above: Performed By: #### L 500.2500, L100.0100, L501.4020 ####[facility] [address] [place], [address] MCHC (RBC) [Mass/Vol] 31.5 g/dL Low 32-36 [facility] Comment on above: Performed By: #### L 500.2500, L100.0100, L501.4020 ####[facility] [address] [place], [address] MCV (RBC) [Entitic vol] 94.9 fL Normal 81-99 [facility] Comment on above: Performed By: #### L 500.2500, L100.0100, L501.4020 ####[facility] [address] [place], [address] Monocytes/100 WBC (Bld) 7.7 % Normal 0-10 [facility] Comment on above: Performed By: #### L 500.2500, L100.0100, L501.4020 ####[facility] [address], [address] Neutrophils/100 WBC (Bld) 77.5 % High 47-[address] [facility] Comment on above: Performed By: #### L 500.2500, L100.0100, L501.4020 ####[facility] [address], [address] Nucleated RBC (Bld) [#/Vol] 0 10*3/uL Normal 0-[address] [facility] Comment on above: Performed By: #### L 500.2500, L100.0100, L501.4020 ####[facility] [address] [place], [address] Platelet mean volume (Bld) [Entitic vol] 9.2 fL Normal 6.2-12.[address] [facility] Comment on above: Performed By: #### L 500.2500, L100.0100, L501.4020 ####[facility] [address], [address] Platelets (Bld) [#/Vol] 289 10*3/uL Normal 150-[address] [facility] Comment on above: Performed By: #### L 500.2500, L100.0100, L501.4020 ####[facility] [address] [place], [address] RBC (Bld) [#/Vol] 3.54 10*6/uL Low 4.2-5.4 [facility] Comment on above: Performed By: #### L 500.2500, L100.0100, L501.4020 ####[facility] [address] [place], [address] RDW SD 53.1 fl High 35.1-43.[address] [facility] Comment on above: Performed By: #### L 500.2500, L100.0100, L501.4020 ####[facility] [address] [place], [address] WBC (Bld) [#/Vol] 7.3 10*3/uL Normal 4.4-11.0 [facility] Comment on above: Performed By: #### L 500.2500, L100.0100, L501.4020 ####[facility] [address] [place], [address] Calcium [Mass/Vol]Ordered By : Jaiden Fontaine on 06-26-2024 Serum or plasma calcium measurement (mass/volume) 9.7 mg/dL 8.5-10.[address] [facility] Carbon dioxide measurementOr dered By: Jaiden Fontaine on 06-26-2024 CO2 [Moles/Vol] 33.0 mmol/L High 21.0-32.[address] [facility] Carbon dioxide measurement 33.0 mmol/L High 21.0-32.[address] [facility] Chest without Contraston Chest without Contrast Normal [facility] Chloride measurementOrdered By: Jaiden Fontaine on 06-26-2024 Chloride [Moles/Vol] 97 mmol/L Low 98-107 [facility] Chloride measurement 97 mmol/L Low 98-107 [facility] Clarity (U)Ordered By: Jaiden Fontaine on 06-26-2024 Urine clarity Clear Clear [facility] Color (U)Ordered By: Jaiden de jesus on 06-26-2024 Urine color determination Yellow Yellow [facility] Creatinine [Mass/Vol]Ordered By: Jaiden Fontaine on 06-26-2024 Serum or plasma creatinine measurement (mass/volume) 0.89 mg/dL 0.55-1.[address] [facility] ED NOTEon 06-26-2024 ED NOTE HNO ID: [id number] Author: MARTHA KYLE, RN Service: Nursing Author Type: Registered Nurse Type: ED Notes Filed: 06/26/2024 20:33 Note Text: Pt asking and concerned about getting her night time medications Normal [facility] ED NOTE HNO ID: [id number] Author: MARTHA KYLE, RN Service: Nursing Author Type: Registered Nurse Type: ED Notes Filed: 06/26/2024 20:32 Note Text: Pt placed on manager monitoring, bp cuff and pulse ox attached. Pt is aANDox3. [place]. R foot is wrapped with a walking shoe Normal [facility] ED NOTE HNO ID: [id number] Author: ZENOBIA VALDEZ RN Service: ? Author Type: Registered Nurse Type: ED Notes Filed: 06/26/2024 20:27 Note Text: Bed: 36-ED Expected date: Expected time: Means of arrival: Comments: TRANSFER Normal [facility] ED PROV NOTEon 06-26-2024 ED PROV NOTE HNO ID: [id number] Author: TAM SERVIN MD Service: Emergency Medicine Author Type: Physician Type: ED Provider Notes Filed: 06/27/2024 00:18 Note Text: ED CONTINUATION OF CARE NOTE Code Status: Prior Assumed care from: transfer from [facility] for trauma consultation Presentation / Findings / Interventions / Plan / Items to Follow Up: 89 y/o F with hx of SAH, HTN, paroxsymal afib, restless leg syndrome, NEL on CPAP HS, mechanical fall on ASA presents as trauma consult transfer from [place] ED; had mechanical fall in AM falling [...] Hood Concepcion M.D. Emergency Medicine Resident, PGY-3 [facility] This note was created using [employer] dictation software. Every attempt was made to proofread, however you may find errors regardless of how insignificant they may be. They are purely unintentional and if there are any concerns regarding this dictation, please do not hesitate to call the dictating provider for clarification. ED Course as of 06/27/2412 Others' Documentation Sat Jun 26, [address] Concepcion. 89-year-old female transfer from [place] for trauma. Found to have left 3-8 rib fractures. Right lower extremity weakness baseline. Likely trauma admission. [MM] ED Course User Index [MM] Gertrudis Hernandez MD Clinical Impressions as of 06/27/2412 Closed fracture of multiple ribs of left side, initial encounter Closed fracture of transverse process of lumbar vertebra, initial encounter (HCC) - L1-L2 SIGNATURE: Hood Concepcion MD PATIENT NAME: Joyce Solomon DATE: June 26, 2024 TIME: 9:22 PM PAGER/CONTACT #: HOOD CONCEPCION 06/26/24 [id number] Attending Note I personally saw the patient [...] additional management. TAM SERVIN 06/27/24 0018 Normal [facility] Emergency Department Summary on 06-26-2024 Emergency Department Summary Normal [facility] Eosinophil percentageOrdered By: Jaiden Fontaine on 06-26-2024 Eosinophils/100 WBC (Bld) 0.7 % 0-[address] [facility] Eosinophil percentage 0.7 % 0-1 [facility] Epithelial cells.squamous LM Ql (Urine sed)Ordered By: Jaiden Fontaine on 06-26-2024 Squamous epithelial cells detection in urine sediment by light microscopy 0-5 SEEN /hpf 5-[address] [facility] Erythrocyte distribution wid th (RBC) [Ratio]Ordered By: Jaiden Fontaine on 06-26-2024 Erythrocyte distribution width ratio 15.2 % High 11.6-14.[address] [facility] Erythrocyte distribution wid th ratioOrdered By: Jaiden Fontaine on 06-26-2024 Erythrocyte distribution width (RBC) [Ratio] 15.2 % High 11.6-14.[address] [facility] Erythrocyte distribution wid th standard deviationOrdered By: Jaiden Fontaine on 06-26-2024 Erythrocyte distribution width (RBC) [Ratio] 53.1 fl High 35.1-43.[address] [facility] Erythrocyte distribution width standard deviation 53.1 fl High 35.1-43.[address] [facility] Estimated glomerular filtrat ion rate (GFR) AmericanOrdered By: Jaiden Fontaine on 06-26-2024 Estimated glomerular filtration rate (GFR) 77 mL/min >[address] [facility] Estimation of creatinine mary ellen aranceOrdered By: Jaiden Fontaine on 06-26-2024 Estimation of creatinine clearance 39.73 ml/min [facility] Foot min 3 Viewson 5 Foot min 3 Views Normal [facility] Foot min 3 Views Normal [facility] Glomerular filtration rate ( GFR) estimationOrdered By: Jaiden Fontaine on 06-26-2024 GFR/1.73 sq M.predicted among non-blacks MDRD (S/P/Bld) [Vol rate/Area] 63 mL/min/{1.73_m2} >[address] [facility] Glomerular filtration rate (GFR) estimation 63 mL/min >[address] [facility] Glucose measurementOrdered B y: Jaiden Fontaine on 06-26-2024 Glucose [Mass/Vol] 114 mg/dL High 74-106 [facility] Glucose measurement 114 mg/dL High 74-106 [facility] Hematocrit Auto (Bld) [Volum e fraction]Ordered By: Jaiden Fontaine on 06-26-2024 Hematocrit (Bld) [Volume fraction] 33.6 % Low 37-[address] [facility] Automated blood hematocrit (percentage) 33.6 % Low 37-[address] [facility] Hemoglobin measurementOrdere d By: Jaiden Fontaine on 06-26-2024 Hemoglobin (Bld) [Mass/Vol] 10.6 g/dL Low 12.0-15.[address] [facility] Hemoglobin measurement 10.6 g/dL Low 12.0-15.0 [facility] Immature granulocytes/100 WB C Auto (Bld)Ordered By: Jaiden Fontaine on 02-15-2025 Immature granulocytes/100 WBC (Bld) 1.000 % High 0.0-0.[address] [facility] Automated immature granulocyte percentage 1.000 % High 0.0-0.[address] [facility] Ketones Test strip Ql (U)Ord ered By: Jaiden Fontaine on 06-26-2024 Ketones Ql (U) Negative Negative [facility] L501.4020on 06-26-2024 TROPONIN-I HS 19 pg/mL Normal 3.0-54.[address] [facility] Comment on above: Order Comment: 'TROP ' Serial specimen #1, #2 or #3: 1 Result Comment: Newton valdovinos Note: New Test Units and Gender Specific Reference Ranges. For more information see Policy Stat Procedure [place] High Sensitivity Troponin (TNIH) and attachments. Performed By: #### L 500.2500, L100.0100, L501.4020 ####[facility] [address] [place], [address] Lymphocytes Auto (Unsp spec) [#/Vol]Ordered By: Jaiden Fontaine on 06-26-2024 Absolute lymphocyte count 0.91 X10^3/uL 0.83-4.[address] [facility] Lymphocytes/100 WBC Auto (Un sp spec)Ordered By: Jaiden Fontaine on 06-26-2024 Automated lymphocyte count as percentage of total leukocytes 12.4 % Low 19-[address] [facility] MCV (RBC) [Entitic vol]Order ed By: Jaiden Fontaine on 06-26-2024 MCV (mean corpuscular volume) determination 94.9 fL 81-[address] [facility] MCV (mean corpuscular volume ) determinationOrdered By: Jaiden Fontaine on 06-26-2024 MCV (RBC) [Entitic vol] 94.9 fL 81-99 [facility] Mean corpuscular hemoglobin (MCH) determinationOrdered By: Jaiden Fontaine on 06-26-2024 MCH (RBC) [Entitic mass] 29.9 pg 27.0-32.[address] [facility] Mean corpuscular hemoglobin (MCH) determination 29.9 pg 27.0-32.[address] [facility] Mean corpuscular hemoglobin concentration (MCHC) determinationOrdered By: Jaiden Fontaine on 06-26-2024 Mean corpuscular hemoglobin concentration (MCHC) determination 31.5 g/dL Low 32-[address] [facility] Mean platelet volume determi nationOrdered By: Jaiden Fontaine on 06-26-2024 Mean platelet volume determination 9.2 fl 6.2-12.[address] [facility] Monocyte percentageOrdered B y: Jaiden Fontaine on 06-26-2024 Monocytes/100 WBC (Bld) 7.7 % 0-10 [facility] Monocyte percentage 7.7 % 0-10 [facility] Mucus LM Ql (Urine sed)Order ed By: Jaiden Fontaine on 06-26-2024 Mucus Ql (Urine sed) 0 SEEN /hpf [facility] Neutrophil percentageOrdered By: Jaiden Fontaine on 06-26-2024 Neutrophils/100 WBC (Bld) 77.5 % High 47-[address] [facility] Neutrophil percentage 77.5 % High 47-70 [facility] Nitrite Test strip Ql (U)Ord ered By: Jaiden Fontaine on 06-26-2024 Nitrite Ql (U) Negative Negative [facility] Nucleated red blood cell per centageOrdered By: Jaiden Fontaine on 06-26-2024 Nucleated red blood cell percentage 0 % 0-[address] [facility] Pelvis 1 or 2 Viewson 2024 Pelvis 1 or 2 Views Normal [facility] Platelet countOrdered By: Rm Fontaine on 06-26-2024 Platelets (Bld) [#/Vol] 289 10*3/uL 150-[address] [facility] Platelet count 289 K/mm3 150-[address] [facility] Potassium measurementOrdered By: Jaiden Fontaine on 06-26-2024 Potassium [Moles/Vol] 3.8 mmol/L 3.5-5.1 [facility] Potassium measurement 3.8 mmol/L 3.5-5.1 [facility] Protein Test strip Ql (U)Ord ered By: Jaiden Fontaine on 06-26-2024 Protein Ql (U) 15 mg/dl High Negative [facility] Urine protein assay by test strip, semi-quantitative 15 mg/dl High Negative [facility] RBC Auto (Bld) [#/Vol]Ordere d By: Jaiden Fontaine on 06-26-2024 RBC (Bld) [#/Vol] 3.54 10*6/uL Low 4.2-5.4 [facility] Automated blood erythrocyte count 3.54 M/mm3 Low 4.2-5.[address] [facility] Serum anion gap measurementO rdered By: Jaiden Fontaine on 06-26-2024 Serum anion gap measurement 6 5-[address] [facility] Serum or plasma calcium manuel urement (mass/volume)Ordered By: Jaiden Fontaine on 06-26-2024 Calcium [Mass/Vol] 9.7 mg/dL 8.5-10.1 [facility] Serum or plasma creatinine m easurement (mass/volume)Ordered By: Jaiden Fontaine on 06-26-2024 Creatinine [Mass/Vol] 0.89 mg/dL 0.55-1.02 [facility] Serum or plasma urea nitroge n measurement (mass/volume)Ordered By: Jaiden Fontaine on 06-26-2024 Urea nitrogen [Mass/Vol] 18 mg/dL 7-[address] [facility] Shoulder min 2 Viewson 06-26 Shoulder min 2 Views Normal [facility] Sodium levelOrdered By: Jaiden Fontaine on 06-26-2024 Sodium [Moles/Vol] 136 mmol/L 136-145 [facility] Sodium level 136 mmol/L 136-[address] [facility] Specific gravity (U) [Rel de nsity]Ordered By: Jaiden Fontaine on 06-26-2024 Urine specific gravity measurement 1.010 1.002-1.[address] [facility] Spine Cervical without Contr ason 06-26-2024 Spine Cervical without Contras Normal [facility] Squamous epithelial cells de tection in urine sediment by light microscopyOrdered By: Jaiden Fontaine on 06-26-2024 Epithelial cells.squamous LM Ql (Urine sed) 0-5 SEEN /hpf 5-[address] [facility] Troponin IOrdered By: Jaiden kaye on 06-26-2024 Troponin I 19 pg/mL 3.0-54.[address] [facility] Troponin I 19 pg/mL 3.0-54.[address] [facility] Urea nitrogen [Mass/Vol]Orde red By: Jaiden Fontaine on 06-26-2024 Serum or plasma urea nitrogen measurement (mass/volume) 18 mg/dL 7-[address] [facility] Urinalysis, Completeon 06-26 RBC 0 SEEN Normal 0-[address] [facility] Comment on above: Order Comment: CLEAN CATCH Performed By: #### L 400.0001 ####[facility] [address] [place], [address] Urine clarityOrdered By: Lurdes Fontaine on 06-26-2024 Clarity (U) Clear Clear [facility] Urine color determinationOrd ered By: Jaiden Fontaine on 06-26-2024 Color (U) Yellow Yellow [facility] Urine glucose detectionOrder ed By: Jaiden Fontaine on 06-26-2024 Glucose Ql (U) Normal mg/dl Normal [facility] Urine glucose detection Normal mg/dl Normal [facility] Urine leukocyte esterase det ection by dipstickOrdered By: Jaiden Fontaine on 06-26-2024 Leukocyte esterase Test strip Ql (U) Negative Negative [facility] Urine pHOrdered By: Jaiden adame on 06-26-2024 pH (U) 6.5 [pH] 5.0 - 8.[address] [facility] Urine sediment bacteria coun t by microscopy (number/high power field)Ordered By: Jaiden Fontaine on 06-26-2024 Bacteria LM.HPF (Urine sed) [#/Area] 0 /[HPF] None Seen [facility] Urine specific gravity measu rementOrdered By: Jaiden Fontaine on 06-26-2024 Specific gravity (U) [Rel density] 1.010 1.002-1.[address] [facility] Urine total bilirubin detect ion by test stripOrdered By: Jaiden Fontaine on 06-26-2024 Urine total bilirubin detection by test strip Negative Negative [facility] Urine urobilinogen measureme ntOrdered By: Jaiden Fontaine on 06-26-2024 Urobilinogen Ql (U) Normal mg/dl Normal [facility] White blood cell (WBC) count Ordered By: Jaiden Fontaine on 06-26-2024 WBC (Bld) [#/Vol] 7.3 10*3/uL 4.4-11.0 [facility] White blood cell (WBC) count 7.3 K/mm3 4.4-11.[address] [facility] White blood cell countOrdere d By: Jaiden Fontaine on 06-26-2024 White blood cell count 0 SEEN /hpf 0-5 [facility] White blood cell count 0 SEEN /hpf [facility] pH (U)Ordered By: Jaiden do on 06-26-2024 Urine pH 6.5 5.0 - 8.[address] [facility] Basic Metabolic Profile (BMP )on 06-21-2024 BUN/CRE 29.8 RATIO High 10-[address] [facility] Comment on above: Order Comment: Order Date: 06/21/24Order Info: [id number] - BMPOrder Info: [id number] - FEOrder Info: [id number] - OSCAR Performed By: #### L 100.0500, L503.6550, L500.2500, L100.9950, L503.6150 ####[facility] [address] [place], [address] CA,Total 9.6 mg/dL Normal 8.5-10.[address] [facility] Comment on above: Order Comment: Order Date: 06/21/24Order Info: [id number] - BMPOrder Info: [id number] FEOrder Info: [id number] - OSCAR Performed By: #### L 100.0500, L503.6550, L500.2500, L100.9950, L503.6150 ####[facility] [address] [place], [address] Chloride [Moles/Vol] 100 mmol/L Normal 98-107 [facility] Comment on above: Order Comment: Order Date: 06/21/24Order Info: [id number] - BMPOrder Info: [id number] FEOrder Info: [id number] - OSCAR Performed By: #### L 100.0500, L503.6550, L500.2500, L100.9950, L503.6150 ####[facility] [address] [place], [address] CO2 [Moles/Vol] 30.0 mmol/L Normal 21.0-32.[address] [facility] Comment on above: Order Comment: Order Date: 06/21/24Order Info: [id number] - BMPOrder Info: [id number] - FEOrder Info: [id number] - SOCAR Performed By: #### L 100.0500, L503.6550, L500.2500, L100.9950, L503.6150 ####[facility] [address] [place], [place], [id number] Creatinine [Mass/Vol] 1.04 mg/dL High 0.55-1.02 [facility] Comment on above: Order Comment: Order Date: 06/21/24Order Info: 666-05 - BMPOrder Info: [id number] - FEOrder Info: [id number] - OSCAR Result Comment: The validity of the calculated GFR GFRAA in patients over70 years has not been determined. Clinical correlation isessential. Performed By: #### L 100.0500, L503.6550, L500.2500, L100.9950, L503.6150 ####[facility] [address] [place], [place], [id number] EST GFR - AA 64 mL/min Normal >[address] [facility] Comment on above: Order Comment: Order Date: 06/21/24Order Info: [id number] - BMPOrder Info: [id number] - FEOrder Info: [id number] - OSCAR Result Comment: Afri can [place] GFR Calc Performed By: #### L 100.0500, L503.6550, L500.2500, L100.9950, L503.6150 ####[facility] [address] [place], [place], [phone] GAP 8 Normal 5-[address] [facility] Comment on above: Order Comment: Order Date: 06/21/24Order Info: [id number] - BMPOrder Info: [id number] - FEOrder Info: [id number] - OSCAR Performed By: #### L 100.0500, L503.6550, L500.2500, L100.9950, L503.6150 ####[facility] [address] [place], [address] GFR/1.73 sq M.predicted among non-blacks MDRD (S/P/Bld) [Vol rate/Area] 53 mL/min/{1.73_m2} Low >[address] [facility] Comment on above: Order Comment: Order Date: 06/21/24Order Info: 666-05 - BMPOrder Info: [id number] - FEOrder Info: [id number] - OSCAR Result Comment: Non- GFR Calc Performed By: #### L 100.0500, L503.6550, L500.2500, L100.9950, L503.6150 ####[facility] [address] [place], [address] Glucose [Mass/Vol] 96 mg/dL Normal 74-106 [facility] Comment on above: Order Comment: Order Date: 06/21/24Order Info: [id number] - BMPOrder Info: [id number] - FEOrder Info: [id number]- - OSCAR Performed By: #### L 100.0500, L503.6550, L500.2500, L100.9950, L503.6150 ####[facility] [address] [place], [address] Potassium [Moles/Vol] 4.5 mmol/L Normal 3.5-5.1 [facility] Comment on above: Order Comment: Order Date: 06/21/24Order Info: 06 - BMPOrder Info: [id number] - FEOrder Info: [id number] - OSCAR Performed By: #### L 100.0500, L503.6550, L500.2500, L100.9950, L503.6150 ####[facility] [address], [address] Sodium [Moles/Vol] 138 mmol/L Normal 136-145 [facility] Comment on above: Order Comment: Order Date: 06/21/24Order Info: [id number] - BMPOrder Info: [id number] - FEOrder Info: [id number] - OSCAR Performed By: #### L 100.0500, L503.6550, L500.2500, L100.9950, L503.6150 ####[facility] [address] [place], [address] Urea nitrogen [Mass/Vol] 31 mg/dL High 7-[address] [facility] Comment on above: Order Comment: Order Date: 06/21/24Order Info: 06 - BMPOrder Info: [id number] - FEOrder Info: [id number] - OSCAR Performed By: #### L 100.0500, L503.6550, L500.2500, L100.9950, L503.6150 ####[facility] [address] [place] [place], [address] BUN Normal 7-[address] [facility] Comment on above: Result Comment: Canc elled via OM: Order cancelled - Patient discharged Performed By: #### L 500.2500, L100.0100 ####[facility] [address] [place], [address] BUN/CRE Normal 10-[address] [facility] Comment on above: Result Comment: Canc elled via OM: Order cancelled - Patient discharged Performed By: #### L 500.2500, L100.0100 ####[facility] [address], [address] CA,Total Normal 8.5-10.[address] [facility] Comment on above: Result Comment: Canc elled via OM: Order cancelled - Patient discharged Performed By: #### L 500.2500, L100.0100 ####[facility] [address] [place], [address] CL Normal 98-[address] [facility] Comment on above: Result Comment: Canc elled via OM: Order cancelled - Patient discharged Performed By: #### L 500.2500, L100.0100 ####[facility] [address], [address] CO2 Normal 21.0-32.[address] [facility] Comment on above: Result Comment: Canc elled via OM: Order cancelled - Patient discharged Performed By: #### L 500.2500, L100.0100 ####[facility] [address] [place], [address] CREAT,SERUM Normal 0.55-1.[address] [facility] Comment on above: Result Comment: Canc elled via OM: Order cancelled - Patient discharged Performed By: #### L 500.2500, L100.0100 ####[facility] [address], [address] EST GFR Normal >[address] [facility] Comment on above: Result Comment: Canc elled via OM: Order cancelled - Patient discharged Performed By: #### L 500.2500, L100.0100 ####[facility] [address], [address] EST GFR - AA Normal >[address] [facility] Comment on above: Result Comment: Canc elled via OM: Order cancelled - Patient discharged Performed By: #### L 500.2500, L100.0100 ####[facility] [address], [address] GAP Normal 5-[address] [facility] Comment on above: Result Comment: Canc elled via OM: Order cancelled - Patient discharged Performed By: #### L 500.2500, L100.0100 ####[facility] [address] [place], [address] GLU Normal 74-[address] [facility] Comment on above: Result Comment: Canc elled via OM: Order cancelled - Patient discharged Performed By: #### L 500.2500, L100.0100 ####[facility] [address], [address] Potassium Normal 3.5-5.[address] [facility] Comment on above: Result Comment: Canc elled via OM: Order cancelled - Patient discharged Performed By: #### L 500.2500, L100.0100 ####[facility] [address] [place], [address] Basic Metabolic Profile (BMP) Normal 136-[address] [facility] Comment on above: Result Comment: Canc elled via OM: Order cancelled - Patient discharged Performed By: #### L 500.2500, L100.0100 ####[facility] [address], [address] Blood urea nitrogen (BUN)/cr eatinine ratioOrdered By: Bridget Swenson on 06-21-2024 Blood urea nitrogen (BUN)/creatinine ratio 29.8 RATIO High 10-[address] [facility] CBC W/Diff, Automatedon 06-12 Absolute Neut Normal 2.0-7.[address] [facility] Comment on above: Result Comment: Canc elled via OM: Order cancelled - Patient discharged Performed By: #### L 500.2500, L100.0100 ####[facility] [address], [address] HCT Normal 37-[address] [facility] Comment on above: Result Comment: Canc elled via OM: Order cancelled - Patient discharged Performed By: #### L 500.2500, L100.0100 ####[facility] [address] [place], [address] HGB Normal 12.0-15.[address] [facility] Comment on above: Result Comment: Canc elled via OM: Order cancelled - Patient discharged Performed By: #### L 500.2500, L100.0100 ####[facility] [address], [address] MCH Normal 27.0-32.[address] [facility] Comment on above: Result Comment: Canc elled via OM: Order cancelled - Patient discharged Performed By: #### L 500.2500, L100.0100 ####[facility] [address] [place], [address] MCHC Normal 32-[address] [facility] Comment on above: Result Comment: Canc elled via OM: Order cancelled - Patient discharged Performed By: #### L 500.2500, L100.0100 ####[facility] [address], [address] MCV Normal 81-[address] [facility] Comment on above: Result Comment: Canc elled via OM: Order cancelled - Patient discharged Performed By: #### L 500.2500, L100.0100 ####[facility] [address], [address] NEUT% Normal 47-[address] [facility] Comment on above: Result Comment: Canc elled via OM: Order cancelled - Patient discharged Performed By: #### L 500.2500, L100.0100 ####[facility] [address], [address] PLT Normal 150-[address] [facility] Comment on above: Result Comment: Canc elled via OM: Order cancelled - Patient discharged Performed By: #### L 500.2500, L100.0100 ####[facility] [address] [place], [address] RBC Normal 4.2-5.[address] [facility] Comment on above: Result Comment: Canc elled via OM: Order cancelled - Patient discharged Performed By: #### L 500.2500, L100.0100 ####[facility] [address] [place], [address] RDW CV Normal 11.6-14.[address] [facility] Comment on above: Result Comment: Canc elled via OM: Order cancelled - Patient discharged Performed By: #### L 500.2500, L100.0100 ####[facility] [address], [address] RDW SD Normal 35.1-43.[address] [facility] Comment on above: Result Comment: Canc elled via OM: Order cancelled - Patient discharged Performed By: #### L 500.2500, L100.0100 ####[facility] [address], [address] WBC Normal 4.4-11.[address] [facility] Comment on above: Result Comment: Canc elled via OM: Order cancelled - Patient discharged Performed By: #### L 500.2500, L100.0100 ####[facility] [address], [address] CBC-Complete Blood Cnt No Di ffon 06-21-2024 Erythrocyte distribution width (RBC) [Ratio] 15.7 % High 11.6-14.[address] [facility] Comment on above: Order Comment: Order Date: 06/21/24Order Info: [id number] - CBCOrder Info: [id number] - RETIC Performed By: #### L 100.0500, L503.6550, L500.2500, L100.9950, L503.6150 ####[facility] [address] [place], [address] Hematocrit (Bld) [Volume fraction] 31.8 % Low 37-[address] [facility] Comment on above: Order Comment: Order Date: 06/21/24Order Info: [id number] - CBCOrder Info: [id number] - RETIC Performed By: #### L 100.0500, L503.6550, L500.2500, L100.9950, L503.6150 ####[facility] [address], [address] Hemoglobin (Bld) [Mass/Vol] 10.0 g/dL Low 12.0-15.[address] [facility] Comment on above: Order Comment: Order Date: 06/21/24Order Info: [id number] - CBCOrder Info: [id number] - RETIC Performed By: #### L 100.0500, L503.6550, L500.2500, L100.9950, L503.6150 ####[facility] [address], [address] MCH (RBC) [Entitic mass] 29.9 pg Normal 27.0-32.[address] [facility] Comment on above: Order Comment: Order Date: 06/21/24Order Info: [id number] - CBCOrder Info: [id number] - RETIC Performed By: #### L 100.0500, L503.6550, L500.2500, L100.9950, L503.6150 ####[facility] [address], [address] MCHC (RBC) [Mass/Vol] 31.4 g/dL Low 32-36 [facility] Comment on above: Order Comment: Order Date: 06/21/24Order Info: [id number] - CBCOrder Info: [id number] - RETIC Performed By: #### L 100.0500, L503.6550, L500.2500, L100.9950, L503.6150 ####[facility] [address], [address] MCV (RBC) [Entitic vol] 94.9 fL Normal 81-99 [facility] Comment on above: Order Comment: Order Date: 06/21/24Order Info: [id number] - CBCOrder Info: [id number] - RETIC Performed By: #### L 100.0500, L503.6550, L500.2500, L100.9950, L503.6150 ####[facility] [address] [place], [address] Platelet mean volume (Bld) [Entitic vol] 9.6 fL Normal 6.2-12.[address] [facility] Comment on above: Order Comment: Order Date: 06/21/24Order Info: [id number] - CBCOrder Info: [id number] - RETIC Performed By: #### L 100.0500, L503.6550, L500.2500, L100.9950, L503.6150 ####[facility] [address] [place], [address] Platelets (Bld) [#/Vol] 328 10*3/uL Normal 150-[address] [facility] Comment on above: Order Comment: Order Date: 06/21/24Order Info: [id number] - CBCOrder Info: [id number] - RETIC Performed By: #### L 100.0500, L503.6550, L500.2500, L100.9950, L503.6150 ####[facility] [address] [place], [address] RBC (Bld) [#/Vol] 3.35 10*6/uL Low 4.2-5.4 [facility] Comment on above: Order Comment: Order Date: 06/21/24Order Info: [id number] - CBCOrder Info: [id number] - RETIC Performed By: #### L 100.0500, L503.6550, L500.2500, L100.9950, L503.6150 ####[facility] [address] [place], [address] RDW SD 54.6 fl High 35.1-43.[address] [facility] Comment on above: Order Comment: Order Date: 06/21/24Order Info: [id number] - CBCOrder Info: [id number] - RETIC Performed By: #### L 100.0500, L503.6550, L500.2500, L100.9950, L503.6150 ####[facility] [address] [place], [address] WBC (Bld) [#/Vol] 6.1 10*3/uL Normal 4.4-11.0 [facility] Comment on above: Order Comment: Order Date: 06/21/24Order Info: [id number] - CBCOrder Info: [id number] - RETIC Performed By: #### L 100.0500, L503.6550, L500.2500, L100.9950, L503.6150 ####[facility] [address] [place], [address] Calcium [Mass/Vol]Ordered By : Bridget Swenson on 06-21-2024 Serum or plasma calcium measurement (mass/volume) 9.6 mg/dL 8.5-10.[address] [facility] Carbon dioxide measurementOr dered By: Bridget Swenson on 06-21-2024 CO2 [Moles/Vol] 30.0 mmol/L 21.0-32.[address] [facility] Carbon dioxide measurement 30.0 mmol/L 21.0-32.[address] [facility] Chloride measurementOrdered By: Bridget Swenson on 06-21-2024 Chloride [Moles/Vol] 100 mmol/L 98-107 [facility] Chloride measurement 100 mmol/L 98-107 [facility] Creatinine [Mass/Vol]Ordered By: Bridget Swenson on 06-21-2024 Serum or plasma creatinine measurement (mass/volume) 1.04 mg/dL High 0.55-1.[address] [facility] Erythrocyte distribution wid th (RBC) [Ratio]Ordered By: Bridget Swenson on 06-21-2024 Erythrocyte distribution width ratio 15.7 % High 11.6-14.[address] [facility] Erythrocyte distribution wid th ratioOrdered By: Bridget Swenson on 06-21-2024 Erythrocyte distribution width (RBC) [Ratio] 15.7 % High 11.6-14.[address] [facility] Erythrocyte distribution wid th standard deviationOrdered By: Bridget Swenson on 06-21-2024 Erythrocyte distribution width (RBC) [Ratio] 54.6 fl High 35.1-43.[address] [facility] Erythrocyte distribution width standard deviation 54.6 fl High 35.1-43.[address] [facility] Estimated glomerular filtrat ion rate (GFR) AmericanOrdered By: Bridget Swenson on 06-21-2024 Estimated glomerular filtration rate (GFR) 64 mL/min >[address] [facility] Ferritinon 06-21-2024 Ferritin [Mass/Vol] 427 ng/mL High 8-252 [facility] Comment on above: Order Comment: Order Date: 06/21/24Order Info: [id number] - BMPOrder Info: [id number] - FEOrder Info: [id number] - OSCAR Performed By: #### L 100.0500, L503.6550, L500.2500, L100.9950, L503.6150 ####[facility] [address] [place], [address] Ferritin measurementOrdered By: Bridget Swenson on 06-21-2024 Ferritin measurement 427 ng/mL High 8-252 [facility] Glomerular filtration rate ( GFR) estimationOrdered By: Bridget Swenson on 06-21-2024 GFR/1.73 sq M.predicted among non-blacks MDRD (S/P/Bld) [Vol rate/Area] 53 mL/min/{1.73_m2} Low >[address] [facility] Glomerular filtration rate (GFR) estimation 53 mL/min Low >[address] [facility] Glucose measurementOrdered B y: Bridget Swenson on 06-21-2024 Glucose [Mass/Vol] 96 mg/dL 74-106 [facility] Glucose measurement 96 mg/dL 74-106 [facility] Hematocrit Auto (Bld) [Volum e fraction]Ordered By: Bridget Swenson on 06-21-2024 Hematocrit (Bld) [Volume fraction] 31.8 % Low 37-[address] [facility] Automated blood hematocrit (percentage) 31.8 % Low 37-[address] [facility] Hemoglobin (Reticulocytes) [ Entitic mass]Ordered By: Bridget Swenson on 06-21-2024 Reticulocyte hemoglobin equivalent (RET-He) measurement 34.5 pg 30-[address] [facility] Hemoglobin measurementOrdere d By: Bridget Swenson on 06-21-2024 Hemoglobin (Bld) [Mass/Vol] 10.0 g/dL Low 12.0-15.[address] [facility] Hemoglobin measurement 10.0 g/dL Low 12.0-15.0 [facility] Immature reticulocyte fracti onOrdered By: Bridget Swenson on 06-21-2024 Immature reticulocyte fraction 7.00 % 3.00-15.[address] [facility] Ironon 06-21-2024 Iron [Mass/Vol] 67 ug/dL Normal 50-[address] [facility] Comment on above: Order Comment: Order Date: 06/21/24Order Info: [id number] - BMPOrder Info: [id number] - FEOrder Info: [id number] - OSCAR Performed By: #### L 100.0500, L503.6550, L500.2500, L100.9950, L503.6150 ####[facility] [address] [place], [place], [address] Iron (Unsp spec) [Mass/Mass] Ordered By: Bridget Swenson on 06-21-2024 Iron measurement (mass/mass) 67 ug/dL 50-[address] [facility] Iron measurement (mass/mass) Ordered By: Bridget Swenson on 06-21-2024 Iron (Unsp spec) [Mass/Mass] 67 ug/dL 50-[address] [facility] MCV (RBC) [Entitic vol]Order ed By: Bridget Swenson on 06-21-2024 MCV (mean corpuscular volume) determination 94.9 fL 81-[address] [facility] MCV (mean corpuscular volume ) determinationOrdered By: Bridget Swenson on 06-21-2024 MCV (RBC) [Entitic vol] 94.9 fL 81-99 [facility] Mean corpuscular hemoglobin (MCH) determinationOrdered By: Bridget Swenson on 06-21-2024 MCH (RBC) [Entitic mass] 29.9 pg 27.0-32.[address] [facility] Mean corpuscular hemoglobin (MCH) determination 29.9 pg 27.0-32.[address] [facility] Mean corpuscular hemoglobin concentration (MCHC) determinationOrdered By: Bridget Swenson on 06-21-2024 Mean corpuscular hemoglobin concentration (MCHC) determination 31.4 g/dL Low 32-[address] [facility] Mean platelet volume determi nationOrdered By: Bridget Swenson on 06-21-2024 Mean platelet volume determination 9.6 fl 6.2-12.[address] [facility] Platelet countOrdered By: Zack Swenson on 06-21-2024 Platelets (Bld) [#/Vol] 328 10*3/uL 150-[address] [facility] Platelet count 328 K/mm3 150-[address] [facility] Potassium measurementOrdered By: Bridget Swenson on 06-21-2024 Potassium [Moles/Vol] 4.5 mmol/L 3.5-5.1 [facility] Potassium measurement 4.5 mmol/L 3.5-5.1 [facility] RBC Auto (Bld) [#/Vol]Ordere d By: Bridget Swenson on 06-21-2024 RBC (Bld) [#/Vol] 3.35 10*6/uL Low 4.2-5.4 [facility] Automated blood erythrocyte count 3.35 M/mm3 Low 4.2-5.[address] [facility] Retic Panelon 06-21-2024 IM RET FRACTION 7.00 Normal 3.00-15.[address] [facility] Comment on above: Order Comment: Order Date: 06/21/24Order Info: [id number] - CBCOrder Info: [id number] - RETIC Performed By: #### L 100.0500, L503.6550, L500.2500, L100.9950, L503.6150 ####[facility] [address] [place], [address] RET-HE 34.5 pg Normal 30-[address] [facility] Comment on above: Order Comment: Order Date: 06/21/24Order Info: [id number] - CBCOrder Info: [id number] - RETIC Performed By: #### L 100.0500, L503.6550, L500.2500, L100.9950, L503.6150 ####[facility] [address] [place], [address] Retic Count 1.34 Normal 0.5-1.[address] [facility] Comment on above: Order Comment: Order Date: 06/21/24Order Info: [id number] - CBCOrder Info: [id number] - RETIC Performed By: #### L 100.0500, L503.6550, L500.2500, L100.9950, L503.6150 ####[facility] [address] [place], [address] Reticulocyte hemoglobin equi valent (RET-He) measurementOrdered By: Bridget Swenson on 06-21-2024 Hemoglobin (Reticulocytes) [Entitic mass] 34.5 pg 30-[address] [facility] Reticulocytes Auto (Bld) [#/ Vol]Ordered By: Bridget Swenson on 06-21-2024 Reticulocytes/100 RBC (Bld) 1.34 % 0.5-1.[address] [facility] Automated blood reticulocytes count (number/volume) 1.34 % 0.5-1.[address] [facility] Serum anion gap measurementO rdered By: Bridget Swenson on 06-21-2024 Serum anion gap measurement 8 5-[address] [facility] Serum or plasma calcium manuel urement (mass/volume)Ordered By: Bridget Swenson on 06-21-2024 Calcium [Mass/Vol] 9.6 mg/dL 8.5-10.1 [facility] Serum or plasma creatinine m easurement (mass/volume)Ordered By: Bridget Swenson on 06-21-2024 Creatinine [Mass/Vol] 1.04 mg/dL High 0.55-1.02 [facility] Serum or plasma urea nitroge n measurement (mass/volume)Ordered By: Bridget Swenson on 06-21-2024 Urea nitrogen [Mass/Vol] 31 mg/dL High 11-[address] [facility] Sodium levelOrdered By: Zenaida Swenson on 06-21-2024 Sodium [Moles/Vol] 138 mmol/L 136-145 [facility] Sodium level 138 mmol/L 136-[address] [facility] Urea nitrogen [Mass/Vol]Orde red By: Bridget Swenson on 06-21-2024 Serum or plasma urea nitrogen measurement (mass/volume) 31 mg/dL High 11-[address] [facility] White blood cell (WBC) count Ordered By: Bridget Swenson on 06-21-2024 WBC (Bld) [#/Vol] 6.1 10*3/uL 4.4-11.0 [facility] White blood cell (WBC) count 6.1 K/mm3 4.4-11.[address] [facility] CNOVon 06-15-2024 CNOV Office Visit (CVAKPO) JOYCE SOLOMON ([id number]) 1935 F CHT Date Time Provider Department 06/15/24 11:00 AM JESSA RETANA During your visit today, we recorded the following information about you: Pulse Blood pressure Weight Height 84/minute 171/44 73.5 kg 1.524 m Jessa Retana APRN.PERSONAL DEVELOPMENT EDUCATOR 06/29/2024 2:01 AM Signed [facility] Established Visit PCP: Bridget Swenson (Jing) [address] [place] [address] CEREBROVASCULAR HISTORY Joyce Solomon (Fran) is a 89 year old female who presents for neurologic evaluation following recent hospitalization for acute SAH (05/11/2024-05/16/2024 ). Stroke Event Information Jatin Solomon is a 89 yo F w/ PMH HTN, HLD, pAF on warfarin, NEL on CPAP, osteoporosis, secondary hypothyroidism transferred from [place] ED May 11, 2024 for ICH monitoring. LKW 05/11 in the morning with the patient developing transient weakness and numbness in the RUE for a few seconds CTH at OSH showed a R frontal ICH and cortical SAH appearing along R precentral gyrus. INR 2.0, reversed warfarin with Kcentra, transferred to [facility] for further evaluation. SBP >200 on arrival to ED, started on nicardipine and transferred to [facility] for continuation of care. 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 Notes residual slurred speech, left side weakness, [...] administration at her facility CTH completed at [facility] 06/14/24 PAST MEDICAL HISTORY Diagnosis Date [...] mouth. tamsulosin (more content not included)... Normal [facility] Absolute lymphocyte countOrd ered By: Aleks Marshall on 06-14-2024 Lymphocytes Auto (Unsp spec) [#/Vol] 1.51 10*3/uL 0.83-4.[address] [facility] Absolute neutrophil countOrd ered By: Aleks Marshall on 06-14-2024 Absolute neutrophil count 3.0 X10^3/uL 2.0-7.[address] [facility] Automated lymphocyte count a s percentage of total leukocytesOrdered By: Aleks Marshall on 06-14-2024 Lymphocytes/100 WBC Auto (Unsp spec) 26.8 % 19-[address] [facility] Basic Metabolic Profile (BMP )on 06-14-2024 BUN/CRE 36.6 RATIO High 10-[address] [facility] Comment on above: Performed By: #### L 100.0100, L500.2500 ####[facility] [address] [place], [address] CA,Total 8.9 mg/dL Normal 8.5-10.[address] [facility] Comment on above: Performed By: #### L 100.0100, L500.2500 ####[facility] [address], [address] Chloride [Moles/Vol] 101 mmol/L Normal 98-107 [facility] Comment on above: Performed By: #### L 100.0100, L500.2500 ####[facility] [address], [address] CO2 [Moles/Vol] 24.0 mmol/L Normal 21.0-32.[address] [facility] Comment on above: Performed By: #### L 100.0100, L500.2500 ####[facility] [address], [address] Creatinine [Mass/Vol] 0.82 mg/dL Normal 0.55-1.02 [facility] Comment on above: Result Comment: The validity of the calculated GFR GFRAA in patients over70 years has not been determined. Clinical correlation isessential. Performed By: #### L 100.0100, L500.2500 ####[facility] [address], [address] ECRCL 43.24 ml/min Normal [facility] Comment on above: Performed By: #### L 100.0100, L500.2500 ####[facility] [address], [address] EST GFR - AA 85 mL/min Normal >[address] [facility] Comment on above: Result Comment: Afri can [place] GFR Calc Performed By: #### L 100.0100, L500.2500 ####[facility] [address], [address] GAP 7 Normal 5-[address] [facility] Comment on above: Performed By: #### L 100.0100, L500.2500 ####[facility] [address] [place], [address] GFR/1.73 sq M.predicted among non-blacks MDRD (S/P/Bld) [Vol rate/Area] 70 mL/min/{1.73_m2} Normal >[address] [facility] Comment on above: Result Comment: Non- GFR Calc Performed By: #### L 100.0100, L500.2500 ####[facility] [address], [address] Glucose [Mass/Vol] 95 mg/dL Normal 74-106 [facility] Comment on above: Performed By: #### L 100.0100, L500.2500 ####[facility] [address], [address] Potassium [Moles/Vol] 4.6 mmol/L Normal 3.5-5.1 [facility] Comment on above: Performed By: #### L 100.0100, L500.2500 ####[facility] [address], [address] Sodium [Moles/Vol] 132 mmol/L Low 136-145 [facility] Comment on above: Performed By: #### L 100.0100, L500.2500 ####[facility] [address] [place], [address] Urea nitrogen [Mass/Vol] 30 mg/dL High 7-[address] [facility] Comment on above: Performed By: #### L 100.0100, L500.2500 ####[facility] [address], [address] Basophil percentageOrdered B y: Aleks Marshall on 06-14-2024 Basophils/100 WBC (Bld) 0.9 % 0-1 [facility] Basophil percentage 0.9 % 0-1 [facility] Blood urea nitrogen (BUN)/cr eatinine ratioOrdered By: Aleks Marshall on 06-14-2024 Blood urea nitrogen (BUN)/creatinine ratio 36.6 RATIO High 10-[address] [facility] Brain/Head without Contrasto n 06-14-2024 Brain/Head without Contrast Normal [facility] CBC W/Diff, Automatedon Absolute Lymph 1.51 X10 3/uL Normal 0.83-4.[address] [facility] Comment on above: Performed By: #### L 100.0100, L500.2500 ####[facility] [address] [place], [address] Absolute Neut 3.0 X10 3/uL Normal 2.0-7.[address] [facility] Comment on above: Performed By: #### L 100.0100, L500.2500 ####[facility] [address] [place], [address] Basophils/100 WBC (Bld) 0.9 % Normal 0-1 [facility] Comment on above: Performed By: #### L 100.0100, L500.2500 ####[facility] [address] [place], [address] Eosinophils/100 WBC (Bld) 4.8 % Normal 0-[address] [facility] Comment on above: Performed By: #### L 100.0100, L500.2500 ####[facility] [address] [place], [address] Erythrocyte distribution width (RBC) [Ratio] 16.0 % High 11.6-14.[address] [facility] Comment on above: Performed By: #### L 100.0100, L500.2500 ####[facility] [address], [address] Hematocrit (Bld) [Volume fraction] 29.7 % Low 37-[address] [facility] Comment on above: Performed By: #### L 100.0100, L500.2500 ####[facility] [address] [place], [address] Hemoglobin (Bld) [Mass/Vol] 9.4 g/dL Low 12.0-15.[address] [facility] Comment on above: Performed By: #### L 100.0100, L500.2500 ####[facility] [address] [place], [address] IG% 1.200 High 0.0-0.[address] [facility] Comment on above: Result Comment: IG% - Immature Granulocytes (promyelocytes, myelocytes andmetamyelocytes) > 1% indicates that a LEFT SHIFT is Present. Performed By: #### L 100.0100, L500.2500 ####[facility] [address], [address] Lymphocytes/100 WBC (Bld) 26.8 % Normal 19-[address] [facility] Comment on above: Performed By: #### L 100.0100, L500.2500 ####[facility] [address], [address] MCH (RBC) [Entitic mass] 29.8 pg Normal 27.0-32.[address] [facility] Comment on above: Performed By: #### L 100.0100, L500.2500 ####[facility] [address], [address] MCHC (RBC) [Mass/Vol] 31.6 g/dL Low 32-36 [facility] Comment on above: Performed By: #### L 100.0100, L500.2500 ####[facility] [address] [place], [address] MCV (RBC) [Entitic vol] 94.3 fL Normal 81-99 [facility] Comment on above: Performed By: #### L 100.0100, L500.2500 ####[facility] [address] [place], [address] Monocytes/100 WBC (Bld) 12.3 % High 0-10 [facility] Comment on above: Performed By: #### L 100.0100, L500.2500 ####[facility] [address], [address] Neutrophils/100 WBC (Bld) 54.0 % Normal 47-[address] [facility] Comment on above: Performed By: #### L 100.0100, L500.2500 ####[facility] [address], [address] Nucleated RBC (Bld) [#/Vol] 0 10*3/uL Normal 0-[address] [facility] Comment on above: Performed By: #### L 100.0100, L500.2500 ####[facility] [address], [address] Platelet mean volume (Bld) [Entitic vol] 9.3 fL Normal 6.2-12.[address] [facility] Comment on above: Performed By: #### L 100.0100, L500.2500 ####[facility] [address], [address] Platelets (Bld) [#/Vol] 308 10*3/uL Normal 150-[address] [facility] Comment on above: Performed By: #### L 100.0100, L500.2500 ####[facility] [address], [address] RBC (Bld) [#/Vol] 3.15 10*6/uL Low 4.2-5.4 [facility] Comment on above: Performed By: #### L 100.0100, L500.2500 ####[facility] [address], [address] RDW SD 55.8 fl High 35.1-43.[address] [facility] Comment on above: Performed By: #### L 100.0100, L500.2500 ####[facility] [address], [address] WBC (Bld) [#/Vol] 5.6 10*3/uL Normal 4.4-11.0 [facility] Comment on above: Performed By: #### L 100.0100, L500.2500 ####[facility] [address], [address] Calcium [Mass/Vol]Ordered By : Aleks Marshall on 06-14-2024 Serum or plasma calcium measurement (mass/volume) 8.9 mg/dL 8.5-10.[address] [facility] Carbon dioxide measurementOr dered By: Aleks Marshall 06-14-2024 CO2 [Moles/Vol] 24.0 mmol/L 21.0-32.[address] [facility] Carbon dioxide measurement 24.0 mmol/L 21.0-32.[address] [facility] Chloride measurementOrdered By: Aleks Marshall 06-14-2024 Chloride [Moles/Vol] 101 mmol/L 98-107 [facility] Chloride measurement 101 mmol/L 98-107 [facility] Creatinine [Mass/Vol]Ordered By: Aleks Marshall 06-14-2024 Serum or plasma creatinine measurement (mass/volume) 0.82 mg/dL 0.55-1.[address] [facility] Eosinophil percentageOrdered By: Aleks Marshall 06-14-2024 Eosinophils/100 WBC (Bld) 4.8 % 0-[address] [facility] Eosinophil percentage 4.8 % 0-5 [facility] Erythrocyte distribution wid th (RBC) [Ratio]Ordered By: Aleks Marshall 06-14-2024 Erythrocyte distribution width ratio 16.0 % High 11.6-14.[address] [facility] Erythrocyte distribution wid th ratioOrdered By: Aleks Marshall 06-14-2024 Erythrocyte distribution width (RBC) [Ratio] 16.0 % High 11.6-14.[address] [facility] Erythrocyte distribution wid th standard deviationOrdered By: Aleks Marshall 06-14-2024 Erythrocyte distribution width (RBC) [Ratio] 55.8 fl High 35.1-43.[address] [facility] Erythrocyte distribution width standard deviation 55.8 fl High 35.1-43.[address] [facility] Estimated glomerular filtrat ion rate (GFR) AmericanOrdered By: Aleks Marshall 06-14-2024 Estimated glomerular filtration rate (GFR) 85 mL/min >[address] [facility] Estimation of creatinine mary ellen aranceOrdered By: Aleks Marshall 06-14-2024 Estimation of creatinine clearance 43.24 ml/min [facility] Glomerular filtration rate ( GFR) estimationOrdered By: Aleks Marshall on 06-14-2024 GFR/1.73 sq M.predicted among non-blacks MDRD (S/P/Bld) [Vol rate/Area] 70 mL/min/{1.73_m2} >[address] [facility] Glomerular filtration rate (GFR) estimation 70 mL/min >[address] [facility] Glucose measurementOrdered B y: Aleks Marshall on 06-14-2024 Glucose [Mass/Vol] 95 mg/dL 74-106 [facility] Glucose measurement 95 mg/dL 74-106 [facility] Hematocrit Auto (Bld) [Volum e fraction]Ordered By: Aleks Marshall on 06-14-2024 Hematocrit (Bld) [Volume fraction] 29.7 % Low 37-[address] [facility] Automated blood hematocrit (percentage) 29.7 % Low 37-[address] [facility] Hemoglobin measurementOrdere d By: Aleks Marshall on 06-14-2024 Hemoglobin (Bld) [Mass/Vol] 9.4 g/dL Low 12.0-15.[address] [facility] Hemoglobin measurement 9.4 g/dL Low 12.0-15.0 [facility] Immature granulocytes/100 WB C Auto (Bld)Ordered By: Aleks Marshall on 06-14-2024 Immature granulocytes/100 WBC (Bld) 1.200 % High 0.0-0.[address] [facility] Automated immature granulocyte percentage 1.200 % High 0.0-0.[address] [facility] Lymphocytes Auto (Unsp spec) [#/Vol]Ordered By: Aleks Marshall on 06-14-2024 Absolute lymphocyte count 1.51 X10^3/uL 0.83-4.[address] [facility] Lymphocytes/100 WBC Auto (Un sp spec)Ordered By: Aleks Marshall on 06-14-2024 Automated lymphocyte count as percentage of total leukocytes 26.8 % 19-[address] [facility] MCV (RBC) [Entitic vol]Order ed By: Aleks Marshall on 06-14-2024 MCV (mean corpuscular volume) determination 94.3 fL 81-[address] [facility] MCV (mean corpuscular volume ) determinationOrdered By: Aleks Marshall 06-14-2024 MCV (RBC) [Entitic vol] 94.3 fL 81-99 [facility] Mean corpuscular hemoglobin (MCH) determinationOrdered By: Aleks Marshall on 06-14-2024 MCH (RBC) [Entitic mass] 29.8 pg 27.0-32.[address] [facility] Mean corpuscular hemoglobin (MCH) determination 29.8 pg 27.0-32.[address] [facility] Mean corpuscular hemoglobin concentration (MCHC) determinationOrdered By: Aleks Marshall on 06-14-2024 Mean corpuscular hemoglobin concentration (MCHC) determination 31.6 g/dL Low 32-[address] [facility] Mean platelet volume determi nationOrdered By: Aleks Marshall on 06-14-2024 Mean platelet volume determination 9.3 fl 6.2-12.[address] [facility] Monocyte percentageOrdered B y: Aleks Marshall on 06-14-2024 Monocytes/100 WBC (Bld) 12.3 % High 0-10 [facility] Monocyte percentage 12.3 % High 0-10 [facility] Neutrophil percentageOrdered By: Aleks Marshall on 06-14-2024 Neutrophils/100 WBC (Bld) 54.0 % 47-[address] [facility] Neutrophil percentage 54.0 % 47-70 [facility] Nucleated red blood cell per centageOrdered By: Aleks Marshall on 06-14-2024 Nucleated red blood cell percentage 0 % 0-[address] [facility] Platelet countOrdered By: Yobany Marshall on 06-14-2024 Platelets (Bld) [#/Vol] 308 10*3/uL 150-[address] [facility] Platelet count 308 K/mm3 150-[address] [facility] Potassium measurementOrdered By: Aleks Marshall on 06-14-2024 Potassium [Moles/Vol] 4.6 mmol/L 3.5-5.1 [facility] Potassium measurement 4.6 mmol/L 3.5-5.1 [facility] RBC Auto (Bld) [#/Vol]Ordere d By: Aleks Marshall on 06-14-2024 RBC (Bld) [#/Vol] 3.15 10*6/uL Low 4.2-5.4 [facility] Automated blood erythrocyte count 3.15 M/mm3 Low 4.2-5.[address] [facility] Serum anion gap measurementO rdered By: Aleks Marshall on 06-14-2024 Serum anion gap measurement 7 5-[address] [facility] Serum or plasma calcium manuel urement (mass/volume)Ordered By: Aleks Marshall on 06-14-2024 Calcium [Mass/Vol] 8.9 mg/dL 8.5-10.1 [facility] Serum or plasma creatinine m easurement (mass/volume)Ordered By: Aleks Marshall on 06-14-2024 Creatinine [Mass/Vol] 0.82 mg/dL 0.55-1.02 [facility] Serum or plasma urea nitroge n measurement (mass/volume)Ordered By: Aleks Marshall on 06-14-2024 Urea nitrogen [Mass/Vol] 30 mg/dL High 11-[address] [facility] Sodium levelOrdered By: Aleks Marshall on 06-14-2024 Sodium [Moles/Vol] 132 mmol/L Low 136-145 [facility] Sodium level 132 mmol/L Low 136-[address] [facility] Urea nitrogen [Mass/Vol]Orde red By: Aleks Marshall on 06-14-2024 Serum or plasma urea nitrogen measurement (mass/volume) 30 mg/dL High 11-[address] [facility] White blood cell (WBC) count Ordered By: Aleks Marshall on 06-14-2024 WBC (Bld) [#/Vol] 5.6 10*3/uL 4.4-11.0 [facility] White blood cell (WBC) count 5.6 K/mm3 4.4-11.[address] [facility] Basic Metabolic Profile (BMP )on 06-07-2024 BUN/CRE 26.3 RATIO High 10-[address] [facility] Comment on above: Performed By: #### L 100.0100, L500.2500 ####[facility] [address] [place], [address] CA,Total 8.7 mg/dL Normal 8.5-10.[address] [facility] Comment on above: Performed By: #### L 100.0100, L500.2500 ####[facility] [address], [address] Chloride [Moles/Vol] 98 mmol/L Normal 98-107 [facility] Comment on above: Performed By: #### L 100.0100, L500.2500 ####[facility] [address], [address] CO2 [Moles/Vol] 26.0 mmol/L Normal 21.0-32.[address] [facility] Comment on above: Performed By: #### L 100.0100, L500.2500 ####[facility] [address], [address] Creatinine [Mass/Vol] 0.80 mg/dL Normal 0.55-1.02 [facility] Comment on above: Result Comment: The validity of the calculated GFR GFRAA in patients over70 years has not been determined. Clinical correlation isessential. Performed By: #### L 100.0100, L500.2500 ####[facility] [address] [place], [address] ECRCL 44.76 ml/min Normal [facility] Comment on above: Performed By: #### L 100.0100, L500.2500 ####[facility] [address], [address] EST GFR - AA 87 mL/min Normal >[address] [facility] Comment on above: Result Comment: Afri can [place] GFR Calc Performed By: #### L 100.0100, L500.2500 ####[facility] [address], [address] GAP 7 Normal 5-[address] [facility] Comment on above: Performed By: #### L 100.0100, L500.2500 ####[facility] [address] [place], [address] GFR/1.73 sq M.predicted among non-blacks MDRD (S/P/Bld) [Vol rate/Area] 72 mL/min/{1.73_m2} Normal >[address] [facility] Comment on above: Result Comment: Non- GFR Calc Performed By: #### L 100.0100, L500.2500 ####[facility] [address] [place], [address] Glucose [Mass/Vol] 96 mg/dL Normal 74-106 [facility] Comment on above: Performed By: #### L 100.0100, L500.2500 ####[facility] [address] [place], [address] Potassium [Moles/Vol] 4.3 mmol/L Normal 3.5-5.1 [facility] Comment on above: Performed By: #### L 100.0100, L500.2500 ####[facility] [address] [place], [address] Sodium [Moles/Vol] 132 mmol/L Low 136-145 [facility] Comment on above: Performed By: #### L 100.0100, L500.2500 ####[facility] [address] [place], [address] Urea nitrogen [Mass/Vol] 21 mg/dL High 7-[address] [facility] Comment on above: Performed By: #### L 100.0100, L500.2500 ####[facility] [address] [place], [address] CBC W/Diff, Automatedon -2 Absolute Lymph 1.44 X10 3/uL Normal 0.83-4.[address] [facility] Comment on above: Performed By: #### L 100.0100, L500.2500 ####[facility] [address] [place], [address] Absolute Neut 4.2 X10 3/uL Normal 2.0-7.[address] [facility] Comment on above: Performed By: #### L 100.0100, L500.2500 ####[facility] [address] [place], [address] Basophils/100 WBC (Bld) 1.1 % High 0-1 [facility] Comment on above: Performed By: #### L 100.0100, L500.2500 ####[facility] [address], [address] Eosinophils/100 WBC (Bld) 2.9 % Normal 0-[address] [facility] Comment on above: Performed By: #### L 100.0100, L500.2500 ####[facility] [address], [address] Erythrocyte distribution width (RBC) [Ratio] 15.9 % High 11.6-14.[address] [facility] Comment on above: Performed By: #### L 100.0100, L500.2500 ####[facility] [address], [address] Hematocrit (Bld) [Volume fraction] 30.4 % Low 37-[address] [facility] Comment on above: Performed By: #### L 100.0100, L500.2500 ####[facility] [address], [address] Hemoglobin (Bld) [Mass/Vol] 9.5 g/dL Low 12.0-15.[address] [facility] Comment on above: Performed By: #### L 100.0100, L500.2500 ####[facility] [address] [place], [address] IG% 1.200 High 0.0-0.[address] [facility] Comment on above: Result Comment: IG% - Immature Granulocytes (promyelocytes, myelocytes andmetamyelocytes) > 1% indicates that a LEFT SHIFT is Present. Performed By: #### L 100.0100, L500.2500 ####[facility] [address] [place], [address] Lymphocytes/100 WBC (Bld) 21.8 % Normal 19-[address] [facility] Comment on above: Performed By: #### L 100.0100, L500.2500 ####[facility] [address], [address] MCH (RBC) [Entitic mass] 28.4 pg Normal 27.0-32.[address] [facility] Comment on above: Performed By: #### L 100.0100, L500.2500 ####[facility] [address], [address] MCHC (RBC) [Mass/Vol] 31.3 g/dL Low 32-36 [facility] Comment on above: Performed By: #### L 100.0100, L500.2500 ####[facility] [address], [address] MCV (RBC) [Entitic vol] 91.0 fL Normal 81-99 [facility] Comment on above: Performed By: #### L 100.0100, L500.2500 ####[facility] [address], [address] Monocytes/100 WBC (Bld) 10.1 % High 0-10 [facility] Comment on above: Performed By: #### L 100.0100, L500.2500 ####[facility] [address], [address] Neutrophils/100 WBC (Bld) 62.9 % Normal 47-[address] [facility] Comment on above: Performed By: #### L 100.0100, L500.2500 ####[facility] [address], [address] Nucleated RBC (Bld) [#/Vol] 0 10*3/uL Normal 0-[address] [facility] Comment on above: Performed By: #### L 100.0100, L500.2500 ####[facility] [address] [place], [address] Platelet mean volume (Bld) [Entitic vol] 9.0 fL Normal 6.2-12.[address] [facility] Comment on above: Performed By: #### L 100.0100, L500.2500 ####[facility] [address] [place], [address] Platelets (Bld) [#/Vol] 373 10*3/uL Normal 150-[address] [facility] Comment on above: Performed By: #### L 100.0100, L500.2500 ####[facility] [address] [place], [address] RBC (Bld) [#/Vol] 3.34 10*6/uL Low 4.2-5.4 [facility] Comment on above: Performed By: #### L 100.0100, L500.2500 ####[facility] [address] [place], [address] RDW SD 52.9 fl High 35.1-43.[address] [facility] Comment on above: Performed By: #### L 100.0100, L500.2500 ####[facility] [address] [place], [address] WBC (Bld) [#/Vol] 6.6 10*3/uL Normal 4.4-11.0 [facility] Comment on above: Performed By: #### L 100.0100, L500.2500 ####[facility] [address] [place], [address] Phosphoruson 06-07-2024 Phosphate [Mass/Vol] 2.9 mg/dL Normal 2.5-4.9 [facility] Comment on above: Order Comment: Comme nts: per DC instructions Performed By: #### L 501.7180 ####[facility] [address] [place], [address] Phosphorus measurementOrdere d By: Aleks Marshall on 06-07-2024 Phosphorus measurement 2.9 mg/dL 2.5-4.9 [facility] HH, Hemoglobin AND Hematocri ton 06-06-2024 Hematocrit (Bld) [Volume fraction] 28.1 % Low 37-[address] [facility] Comment on above: Performed By: #### L 100.0600 ####[facility] [address] [place], [address] Hemoglobin (Bld) [Mass/Vol] 8.9 g/dL Low 12.0-15.[address] [facility] Comment on above: Performed By: #### L 100.0600 ####[facility] [address] [place], [address] Basic Metabolic Profile (BMP )on 06-05-2024 BUN/CRE 33.4 RATIO High 10-[address] [facility] Comment on above: Performed By: #### L 500.2500 ####[facility] [address] [place], [address] CA,Total 9.0 mg/dL Normal 8.5-10.[address] [facility] Comment on above: Performed By: #### L 500.2500 ####[facility] [address] [place], [address] Chloride [Moles/Vol] 99 mmol/L Normal 98-107 [facility] Comment on above: Performed By: #### L 500.2500 ####[facility] [address] [place], [address] CO2 [Moles/Vol] 23.0 mmol/L Normal 21.0-32.[address] [facility] Comment on above: Performed By: #### L 500.2500 ####[facility] [address] [place], [address] Creatinine [Mass/Vol] 0.93 mg/dL Normal 0.55-1.02 [facility] Comment on above: Result Comment: The validity of the calculated GFR GFRAA in patients over70 years has not been determined. Clinical correlation isessential. Performed By: #### L 500.2500 ####[facility] [address], [address] ECRCL 38.50 ml/min Normal [facility] Comment on above: Performed By: #### L 500.2500 ####[facility] [address], [address] EST GFR - AA 73 mL/min Normal >[address] [facility] Comment on above: Result Comment: Afri can [place] GFR Calc Performed By: #### L 500.2500 ####[facility] [address] [place], [address] GAP 9 Normal 5-[address] [facility] Comment on above: Performed By: #### L 500.2500 ####[facility] [address] [place], [address] GFR/1.73 sq M.predicted among non-blacks MDRD (S/P/Bld) [Vol rate/Area] 61 mL/min/{1.73_m2} Normal >[address] [facility] Comment on above: Result Comment: Non- GFR Calc Performed By: #### L 500.2500 ####[facility] [address], [address] Glucose [Mass/Vol] 97 mg/dL Normal 74-106 [facility] Comment on above: Performed By: #### L 500.2500 ####[facility] [address], [address] Potassium [Moles/Vol] 4.1 mmol/L Normal 3.5-5.1 [facility] Comment on above: Performed By: #### L 500.2500 ####[facility] [address], [address] Sodium [Moles/Vol] 131 mmol/L Low 136-145 [facility] Comment on above: Performed By: #### L 500.2500 ####[facility] [address] [place], [address] Urea nitrogen [Mass/Vol] 31 mg/dL High 7-[address] [facility] Comment on above: Performed By: #### L 500.2500 ####[facility] [address] [place], [address] HH, Hemoglobin AND Hematocri ton 06-03-2024 Hematocrit (Bld) [Volume fraction] 30.9 % Low 37-[address] [facility] Comment on above: Performed By: #### L 100.0600 ####[facility] [address] [place], [address] Hemoglobin (Bld) [Mass/Vol] 9.4 g/dL Low 12.0-15.[address] [facility] Comment on above: Performed By: #### L 100.0600 ####[facility] [address] [place], [address] Basic Metabolic Profile (BMP )on 06-02-2024 BUN/CRE 33.2 RATIO High 10-[address] [facility] Comment on above: Performed By: #### L 500.2500 ####[facility] [address] [place], [address] CA,Total 9.0 mg/dL Normal 8.5-10.[address] [facility] Comment on above: Performed By: #### L 500.2500 ####[facility] [address] [place], [address] Chloride [Moles/Vol] 105 mmol/L Normal 98-107 [facility] Comment on above: Performed By: #### L 500.2500 ####[facility] [address] [place], [address] CO2 [Moles/Vol] 26.0 mmol/L Normal 21.0-32.[address] [facility] Comment on above: Performed By: #### L 500.2500 ####[facility] [address] [place], [address] Creatinine [Mass/Vol] 0.75 mg/dL Normal 0.55-1.02 [facility] Comment on above: Result Comment: The validity of the calculated GFR GFRAA in patients over70 years has not been determined. Clinical correlation isessential. Performed By: #### L 500.2500 ####[facility] [address] [place], [address] ECRCL 44.76 ml/min Normal [facility] Comment on above: Performed By: #### L 500.2500 ####[facility] [address] [place], [address] EST GFR - AA 93 mL/min Normal >[address] [facility] Comment on above: Result Comment: Afri can [place] GFR Calc Performed By: #### L 500.2500 ####[facility] [address] [place], [address] GAP 6 Normal 5-[address] [facility] Comment on above: Performed By: #### L 500.2500 ####[facility] [address] [place], [address] GFR/1.73 sq M.predicted among non-blacks MDRD (S/P/Bld) [Vol rate/Area] 77 mL/min/{1.73_m2} Normal >[address] [facility] Comment on above: Result Comment: Non- GFR Calc Performed By: #### L 500.2500 ####[facility] [address] [place], [address] Glucose [Mass/Vol] 99 mg/dL Normal 74-106 [facility] Comment on above: Performed By: #### L 500.2500 ####[facility] [address] [place], [address] Potassium [Moles/Vol] 4.2 mmol/L Normal 3.5-5.1 [facility] Comment on above: Performed By: #### L 500.2500 ####[facility] [address] [place], [address] Sodium [Moles/Vol] 137 mmol/L Normal 136-145 [facility] Comment on above: Performed By: #### L 500.2500 ####[facility] [address] [place], [address] Urea nitrogen [Mass/Vol] 25 mg/dL High 7-[address] [facility] Comment on above: Performed By: #### L 500.2500 ####[facility] [address] [place], [address] HH, Hemoglobin AND Hematocri ton 06-01-2024 Hematocrit (Bld) [Volume fraction] 29.8 % Low 37-[address] [facility] Comment on above: Performed By: #### L 100.0600 ####[facility] [address] [place], [address] Hemoglobin (Bld) [Mass/Vol] 9.2 g/dL Low 12.0-15.[address] [facility] Comment on above: Performed By: #### L 100.0600 ####[facility] [address] [place], [address] Basic Metabolic Profile (BMP )on 05-31-2024 BUN/CRE 40.2 RATIO High 10-[address] [facility] Comment on above: Performed By: #### L 500.2500, L100.0100 ####[facility] [address] [place], [address] CA,Total 9.0 mg/dL Normal 8.5-10.[address] [facility] Comment on above: Performed By: #### L 500.2500, L100.0100 ####[facility] [address], [address] Chloride [Moles/Vol] 107 mmol/L Normal 98-107 [facility] Comment on above: Performed By: #### L 500.2500, L100.0100 ####[facility] [address], [address] CO2 [Moles/Vol] 23.0 mmol/L Normal 21.0-32.[address] [facility] Comment on above: Performed By: #### L 500.2500, L100.0100 ####[facility] [address], [address] Creatinine [Mass/Vol] 0.77 mg/dL Normal 0.55-1.02 [facility] Comment on above: Result Comment: The validity of the calculated GFR GFRAA in patients over70 years has not been determined. Clinical correlation isessential. Performed By: #### L 500.2500, L100.0100 ####[facility] [address], [address] ECRCL 44.92 ml/min Normal [facility] Comment on above: Performed By: #### L 500.2500, L100.0100 ####[facility] [address] [place], [address] EST GFR - AA 91 mL/min Normal >[address] [facility] Comment on above: Result Comment: Afri can [place] GFR Calc Performed By: #### L 500.2500, L100.0100 ####[facility] [address] [place], [address] GAP 5 Normal 5-[address] [facility] Comment on above: Performed By: #### L 500.2500, L100.0100 ####[facility] [address], [address] GFR/1.73 sq M.predicted among non-blacks MDRD (S/P/Bld) [Vol rate/Area] 75 mL/min/{1.73_m2} Normal >[address] [facility] Comment on above: Result Comment: Non- GFR Calc Performed By: #### L 500.2500, L100.0100 ####[facility] [address], [address] Glucose [Mass/Vol] 113 mg/dL High 74-106 [facility] Comment on above: Result Comment: Fast ing Glucose result from 100 to 125 mg/dLsuggests IMPAIRED HOMEOSTASIS per A.D.A. criteria. Performed By: #### L 500.2500, L100.0100 ####[facility] [address] [place], [address] Potassium [Moles/Vol] 4.9 mmol/L Normal 3.5-5.1 [facility] Comment on above: Performed By: #### L 500.2500, L100.0100 ####[facility] [address] [place], [address] Sodium [Moles/Vol] 135 mmol/L Low 136-145 [facility] Comment on above: Performed By: #### L 500.2500, L100.0100 ####[facility] [address] [place], [address] Urea nitrogen [Mass/Vol] 31 mg/dL High 7-[address] [facility] Comment on above: Performed By: #### L 500.2500, L100.0100 ####[facility] [address] [place], [address] CBC W/Diff, Automatedon 01-2 0-5 Absolute Lymph 1.12 X10 3/uL Normal 0.83-4.[address] [facility] Comment on above: Performed By: #### L 500.2500, L100.0100 ####[facility] [address] [place], [address] Absolute Neut 4.2 X10 3/uL Normal 2.0-7.[address] [facility] Comment on above: Performed By: #### L 500.2500, L100.0100 ####[facility] [address] [place], [address] Basophils/100 WBC (Bld) 1.1 % High 0-1 [facility] Comment on above: Performed By: #### L 500.2500, L100.0100 ####[facility] [address] [place], [address] Eosinophils/100 WBC (Bld) 2.8 % Normal 0-[address] [facility] Comment on above: Performed By: #### L 500.2500, L100.0100 ####[facility] [address] [place], [address] Erythrocyte distribution width (RBC) [Ratio] 15.9 % High 11.6-14.[address] [facility] Comment on above: Performed By: #### L 500.2500, L100.0100 ####[facility] [address], [address] Hematocrit (Bld) [Volume fraction] 30.2 % Low 37-[address] [facility] Comment on above: Performed By: #### L 500.2500, L100.0100 ####[facility] [address], [address] Hemoglobin (Bld) [Mass/Vol] 9.3 g/dL Low 12.0-15.[address] [facility] Comment on above: Performed By: #### L 500.2500, L100.0100 ####[facility] [address], [address] IG% 1.300 High 0.0-0.[address] [facility] Comment on above: Result Comment: IG% - Immature Granulocytes (promyelocytes, myelocytes andmetamyelocytes) > 1% indicates that a LEFT SHIFT is Present. Performed By: #### L 500.2500, L100.0100 ####[facility] [address] [place], [address] Lymphocytes/100 WBC (Bld) 18.1 % Low 19-[address] [facility] Comment on above: Performed By: #### L 500.2500, L100.0100 ####[facility] [address] [place], [address] MCH (RBC) [Entitic mass] 29.5 pg Normal 27.0-32.[address] [facility] Comment on above: Performed By: #### L 500.2500, L100.0100 ####[facility] [address], [address] MCHC (RBC) [Mass/Vol] 30.8 g/dL Low 32-36 [facility] Comment on above: Performed By: #### L 500.2500, L100.0100 ####[facility] [address], [address] MCV (RBC) [Entitic vol] 95.9 fL Normal 81-99 [facility] Comment on above: Performed By: #### L 500.2500, L100.0100 ####[facility] [address] [place], [address] Monocytes/100 WBC (Bld) 9.2 % Normal 0-10 [facility] Comment on above: Performed By: #### L 500.2500, L100.0100 ####[facility] [address], [address] Neutrophils/100 WBC (Bld) 67.5 % Normal 47-[address] [facility] Comment on above: Performed By: #### L 500.2500, L100.0100 ####[facility] [address] [place], [address] Nucleated RBC (Bld) [#/Vol] 0 10*3/uL Normal 0-[address] [facility] Comment on above: Performed By: #### L 500.2500, L100.0100 ####[facility] [address], [address] Platelet mean volume (Bld) [Entitic vol] 9.5 fL Normal 6.2-12.[address] [facility] Comment on above: Performed By: #### L 500.2500, L100.0100 ####[facility] [address], [address] Platelets (Bld) [#/Vol] 293 10*3/uL Normal 150-[address] [facility] Comment on above: Performed By: #### L 500.2500, L100.0100 ####[facility] [address], [address] RBC (Bld) [#/Vol] 3.15 10*6/uL Low 4.2-5.4 [facility] Comment on above: Performed By: #### L 500.2500, L100.0100 ####[facility] [address], [address] RDW SD 55.9 fl High 35.1-43.[address] [facility] Comment on above: Performed By: #### L 500.2500, L100.0100 ####[facility] [address], [address] WBC (Bld) [#/Vol] 6.2 10*3/uL Normal 4.4-11.0 [facility] Comment on above: Performed By: #### L 500.2500, L100.0100 ####[facility] [address], [address] Venous Duplex US - Yfn Extre mon 05-31-2024 Venous Duplex US - Yfn Extrem Normal [facility] Clarity (U)Ordered By: Joyce Rousseau on 05-28-2024 Urine clarity Clear Clear [facility] Color (U)Ordered By: Joyce dumont on 05-28-2024 Urine color determination Yellow Yellow [facility] Leukocyte esterase Test stri p Ql (U)Ordered By: Joyce Rousseau on 05-28-2024 Urine leukocyte esterase detection by dipstick 25 /ul High Negative [facility] Microscopic analysis of urin e for red blood cells (RBC)Ordered By: Joyce Cliffordcarlitos on 05-28-2024 Microscopic analysis of urine for red blood cells (RBC) 5-10 SEEN /hpf 0-[address] [facility] Protein Test strip Ql (U)Ord ered By: Joyce Cliffordcarlitos on 05-28-2024 Urine protein assay by test strip, semi-quantitative 15 mg/dl High Negative [facility] Specific gravity (U) [Rel de nsity]Ordered By: Joyce Cliffordcarlitos on 05-28-2024 Urine specific gravity measurement 1.010 1.002-1.[address] [facility] Squamous epithelial cells de tection in urine sediment by light microscopyOrdered By: Joyce Cliffordcarlitos on 05-28-2024 Squamous epithelial cells detection in urine sediment by light microscopy 0 SEEN /hpf [facility] Urinalysis, Completeon 05-28 RBC 5-10 SEEN Normal 0-[address] [facility] Comment on above: Order Comment: COLT TER SPECIMEN Performed By: #### L 400.0001 ####[facility] [address] [facility] [place], [address] WBC 0-5 SEEN Normal 0-[address] [facility] Comment on above: Order Comment: COLT TER SPECIMEN Performed By: #### L 400.0001 ####[facility] [address] [facility] [place], [address] BACTERIA 0 SEEN Normal None Seen [facility] Comment on above: Order Comment: COLT TER SPECIMEN Performed By: #### L 400.0001 ####[facility] [address] [facility] [place], [address] EPI,SQUAMOUS 0 SEEN Normal 5-[address] [facility] Comment on above: Order Comment: COLT TER SPECIMEN Performed By: #### L 400.0001 ####[facility] [address], [address] Mucus Ql (Urine sed) 0 SEEN Normal [facility] Comment on above: Order Comment: COLT TER SPECIMEN Performed By: #### L 400.0001 ####[facility] [address], [address] Urine blood detectionOrdered By: Joyce Rousseau on 05-28-2024 Urine blood detection 50 /ul High Negative [facility] Urine glucose detectionOrder ed By: Joyce Rousseau on 05-28-2024 Urine glucose detection Normal mg/dl Normal [facility] Urine total bilirubin detect ion by test stripOrdered By: Joyce Rousseau on 05-28-2024 Urine total bilirubin detection by test strip Negative Negative [facility] White blood cell countOrdere d By: Joyce Rousseau on 05-28-2024 White blood cell count 0-5 SEEN /hpf 0-[address] [facility] pH (U)Ordered By: Joyce urbina on 05-28-2024 Urine pH 6.5 5.0 - 8.[address] [facility] Basic Metabolic Profile (BMP )on 05-24-2024 BUN/CRE 26.9 RATIO High 10-[address] [facility] Comment on above: Performed By: #### L 501.5200, L500.2500, L100.0500 ####[facility] [address] [place], [address] CA,Total 8.7 mg/dL Normal 8.5-10.[address] [facility] Comment on above: Performed By: #### L 501.5200, L500.2500, L100.0500 ####[facility] [address] [place], [address] Chloride [Moles/Vol] 110 mmol/L High 98-107 [facility] Comment on above: Performed By: #### L 501.5200, L500.2500, L100.0500 ####[facility] [address] [place], [address] CO2 [Moles/Vol] 24.0 mmol/L Normal 21.0-32.[address] [facility] Comment on above: Performed By: #### L 501.5200, L500.2500, L100.0500 ####[facility] [address], [address] Creatinine [Mass/Vol] 0.93 mg/dL Normal 0.55-1.02 [facility] Comment on above: Result Comment: The validity of the calculated GFR GFRAA in patients over70 years has not been determined. Clinical correlation isessential. Performed By: #### L 501.5200, L500.2500, L100.0500 ####[facility] [address] [place], [address] ECRCL 37.45 ml/min Normal [facility] Comment on above: Performed By: #### L 501.5200, L500.2500, L100.0500 ####[facility] [address], [address] EST GFR - AA 73 mL/min Normal >[address] [facility] Comment on above: Result Comment: Afri can [place] GFR Calc Performed By: #### L 501.5200, L500.2500, L100.0500 ####[facility] [address], [address] GAP 5 Normal 5-[address] [facility] Comment on above: Performed By: #### L 501.5200, L500.2500, L100.0500 ####[facility] [address], [address] GFR/1.73 sq M.predicted among non-blacks MDRD (S/P/Bld) [Vol rate/Area] 61 mL/min/{1.73_m2} Normal >[address] [facility] Comment on above: Result Comment: Non- GFR Calc Performed By: #### L 501.5200, L500.2500, L100.0500 ####[facility] [address] [place], [address] Glucose [Mass/Vol] 93 mg/dL Normal 74-106 [facility] Comment on above: Performed By: #### L 501.5200, L500.2500, L100.0500 ####[facility] [address], [address] Potassium [Moles/Vol] 4.7 mmol/L Normal 3.5-5.1 [facility] Comment on above: Performed By: #### L 501.5200, L500.2500, L100.0500 ####[facility] [address], [address] Sodium [Moles/Vol] 138 mmol/L Normal 136-145 [facility] Comment on above: Performed By: #### L 501.5200, L500.2500, L100.0500 ####[facility] [address] [place], [address] Urea nitrogen [Mass/Vol] 25 mg/dL High 7-[address] [facility] Comment on above: Performed By: #### L 501.5200, L500.2500, L100.0500 ####[facility] [address], [address] Blood urea nitrogen (BUN)/cr eatinine ratioOrdered By: Joyce Rousseau on 05-24-2024 Blood urea nitrogen (BUN)/creatinine ratio 26.9 RATIO High 10-[address] [facility] CBC-Complete Blood Cnt No Di ffon 05-24-2024 Erythrocyte distribution width (RBC) [Ratio] 15.7 % High 11.6-14.[address] [facility] Comment on above: Performed By: #### L 501.5200, L500.2500, L100.0500 ####[facility] [address], [address] Hematocrit (Bld) [Volume fraction] 33.8 % Low 37-[address] [facility] Comment on above: Performed By: #### L 501.5200, L500.2500, L100.0500 ####[facility] [address] [place], [address] Hemoglobin (Bld) [Mass/Vol] 10.6 g/dL Low 12.0-15.[address] [facility] Comment on above: Performed By: #### L 501.5200, L500.2500, L100.0500 ####[facility] [address] [place], [address] MCH (RBC) [Entitic mass] 29.0 pg Normal 27.0-32.[address] [facility] Comment on above: Performed By: #### L 501.5200, L500.2500, L100.0500 ####[facility] [address] [place], [address] MCHC (RBC) [Mass/Vol] 31.4 g/dL Low 32-36 [facility] Comment on above: Performed By: #### L 501.5200, L500.2500, L100.0500 ####[facility] [address] [place], [address] MCV (RBC) [Entitic vol] 92.3 fL Normal 81-99 [facility] Comment on above: Performed By: #### L 501.5200, L500.2500, L100.0500 ####[facility] [address] [place], [address] Platelet mean volume (Bld) [Entitic vol] 9.4 fL Normal 6.2-12.[address] [facility] Comment on above: Performed By: #### L 501.5200, L500.2500, L100.0500 ####[facility] [address] [place], [address] Platelets (Bld) [#/Vol] 433 10*3/uL Normal 150-[address] [facility] Comment on above: Performed By: #### L 501.5200, L500.2500, L100.0500 ####[facility] [address], [address] RBC (Bld) [#/Vol] 3.66 10*6/uL Low 4.2-5.4 [facility] Comment on above: Performed By: #### L 501.5200, L500.2500, L100.0500 ####[facility] [address], [address] RDW SD 52.7 fl High 35.1-43.[address] [facility] Comment on above: Performed By: #### L 501.5200, L500.2500, L100.0500 ####[facility] [address], [address] WBC (Bld) [#/Vol] 8.3 10*3/uL Normal 4.4-11.0 [facility] Comment on above: Performed By: #### L 501.5200, L500.2500, L100.0500 ####[facility] [address], [address] Calcium [Mass/Vol]Ordered By : Joyce Rousseau on 05-24-2024 Serum or plasma calcium measurement (mass/volume) 8.7 mg/dL 8.5-10.[address] [facility] Carbon dioxide measurementOr dered By: Joyce Rousseau on 05-24-2024 Carbon dioxide measurement 24.0 mmol/L 21.0-32.[address] [facility] Chloride measurementOrdered By: Joyce Rousseau on 05-24-2024 Chloride measurement 110 mmol/L High 98-107 [facility] Creatinine [Mass/Vol]Ordered By: Joyce Rousseau on 05-24-2024 Serum or plasma creatinine measurement (mass/volume) 0.93 mg/dL 0.55-1.[address] [facility] Erythrocyte distribution wid th (RBC) [Ratio]Ordered By: Joyce Rousseau on 05-24-2024 Erythrocyte distribution width ratio 15.7 % High 11.6-14.[address] [facility] Erythrocyte distribution wid th standard deviationOrdered By: Joyce Onelia on 05-24-2024 Erythrocyte distribution width standard deviation 52.7 fl High 35.1-43.[address] [facility] Estimated glomerular filtrat ion rate (GFR) AmericanOrdered By: Joyce Rousseau on 05-24-2024 Estimated glomerular filtration rate (GFR) 73 mL/min >[address] [facility] Estimation of creatinine mary ellen aranceOrdered By: Joyce Rousseau on 05-24-2024 Estimation of creatinine clearance 37.45 ml/min [facility] Glomerular filtration rate ( GFR) estimationOrdered By: Joyce Rousseau on 05-24-2024 Glomerular filtration rate (GFR) estimation 61 mL/min >[address] [facility] Glucose measurementOrdered B y: Joyce Rousseau on 05-24-2024 Glucose measurement 93 mg/dL 74-106 [facility] Hematocrit Auto (Bld) [Volum e fraction]Ordered By: Joyce Rousseau on 05-24-2024 Automated blood hematocrit (percentage) 33.8 % Low 37-[address] [facility] Hemoglobin measurementOrdere d By: Joyce Rousseau on 05-24-2024 Hemoglobin measurement 10.6 g/dL Low 12.0-15.0 [facility] MCV (RBC) [Entitic vol]Order ed By: Joyce Rousseau on 05-24-2024 MCV (mean corpuscular volume) determination 92.3 fL 81-[address] [facility] Magnesiumon 05-24-2024 Magnesium [Mass/Vol] 2.5 mg/dL Normal 1.6-2.6 [facility] Comment on above: Performed By: #### L 501.5200, L500.2500, L100.0500 ####[facility] [address] [place], [place], [address] Magnesium measurementOrdered By: Joyce Rousseau on 05-24-2024 Magnesium measurement 2.5 mg/dL 1.6-2.6 [facility] Mean corpuscular hemoglobin (MCH) determinationOrdered By: Joyce Rousseau on 05-24-2024 Mean corpuscular hemoglobin (MCH) determination 29.0 pg 27.0-32.[address] [facility] Mean corpuscular hemoglobin concentration (MCHC) determinationOrdered By: Joyce Rousseau on 05-24-2024 Mean corpuscular hemoglobin concentration (MCHC) determination 31.4 g/dL Low 32-[address] [facility] Mean platelet volume determi nationOrdered By: Joyce Rousseau on 05-24-2024 Mean platelet volume determination 9.4 fl 6.2-12.[address] [facility] Phosphoruson 05-24-2024 Phosphate [Mass/Vol] 2.1 mg/dL Low 2.5-4.9 [facility] Comment on above: Performed By: #### L 501.2300 ####[facility] [address] [place], [place], [address] Phosphorus measurementOrdere d By: Joyce Rousseau on 05-24-2024 Phosphorus measurement 2.1 mg/dL Low 2.5-4.9 [facility] Platelet countOrdered By: Sammy Rousseau on 05-24-2024 Platelet count 433 K/mm3 150-[address] [facility] Potassium measurementOrdered By: Joyce Rousseau on 05-24-2024 Potassium measurement 4.7 mmol/L 3.5-5.1 [facility] RBC Auto (Bld) [#/Vol]Ordere d By: Joyce Rousseau on 05-24-2024 Automated blood erythrocyte count 3.66 M/mm3 Low 4.2-5.[address] [facility] Serum anion gap measurementO rdered By: Joyce Rousseau on 05-24-2024 Serum anion gap measurement 5 5-[address] [facility] Sodium levelOrdered By: Joyce Rousseau on 05-24-2024 Sodium level 138 mmol/L 136-[address] [facility] Urea nitrogen [Mass/Vol]Orde red By: Joyce Rousseau on 05-24-2024 Serum or plasma urea nitrogen measurement (mass/volume) 25 mg/dL High 7-[address] [facility] White blood cell (WBC) count Ordered By: Joyce Rousseau on 05-24-2024 White blood cell (WBC) count 8.3 K/mm3 4.4-11.[address] [facility] Stool Occult Blood iFOBon STOB Negative Normal [facility] Comment on above: Performed By: #### M 100.7900 ####[facility] [address] [place], [address] Urine Cultureon 05-19-2024 URC Normal [facility] Comment on above: Performed By: #### M 100.2200 ####[facility] [address], [address] Ferritinon 05-18-2024 Ferritin [Mass/Vol] 113 ng/mL Normal 8-252 [facility] Comment on above: Performed By: #### L 503.6030, L503.6550 ####[facility] [address] [place], [address] Ferritin measurementOrdered By: Joyce Rousseau on 05-18-2024 Ferritin measurement 113 ng/mL 8-252 [facility] Iron (Unsp spec) [Mass/Mass] Ordered By: Joyce Rousseau on 05-18-2024 Iron measurement (mass/mass) 61 ug/dL 50-[address] [facility] Iron saturation [Mass fracti on]Ordered By: Joyce Rousseau on 05-18-2024 Serum or plasma iron saturation measurement (mass fraction) 11.2 % Low 15.0-55.[address] [facility] Iron+Iron Binding Capacityon 05-18-2024 Iron [Mass/Vol] 61 ug/dL Normal 50-[address] [facility] Comment on above: Performed By: #### L 503.6030, L503.6550 ####[facility] [address] [place], [address] IRON SATURATION 11.2 Low 15.0-55.[address] [facility] Comment on above: Performed By: #### L 503.6030, L503.6550 ####[facility] [address] [place], [address] TIBC 546 ug/dL High 250-[address] [facility] Comment on above: Performed By: #### L 503.6030, L503.6550 ####[facility] [address] [place], [address] TIBCOrdered By: Joyce Rousseau on 05-18-2024 TIBC 546 ug/dL High 250-[address] [facility] ALP [Catalytic activity/Vol] Ordered By: Aleks Cutlerok on 05-17-2024 Serum or plasma alkaline phosphatase measurement 59 U/L 45-[address] [facility] ALT [Catalytic activity/Vol] Ordered By: Aleks Rolando on 05-17-2024 Serum or plasma alanine aminotransferase (ALT) measurement 20 U/L 13-[address] [facility] Absolute neutrophil countOrd ered By: Aleks Marshall on 05-17-2024 Absolute neutrophil count 4.6 X10^3/uL 2.0-7.[address] [facility] Albumin [Mass/Vol]Ordered By : Aleks Marshall on 05-17-2024 Serum or plasma albumin measurement (mass/volume) 3.0 g/dL Low 3.2-5.[address] [facility] Albumin to globulin ratioOrd ered By: Aleks Marshall on 05-17-2024 Albumin to globulin ratio 0.8 RATIO Low 0.9-2.[address] [facility] Basophil percentageOrdered B y: Aleks Marshall on 05-17-2024 Basophil percentage 0.9 % 0-1 [facility] Bilirubin, totalOrdered By: Aleks Marshall on 05-17-2024 Bilirubin, total 0.30 mg/dL 0.20-1.[address] [facility] CBC W/Diff, Automatedon Absolute Lymph 1.66 X10 3/uL Normal 0.83-4.[address] [facility] Comment on above: Performed By: #### L 500.4050, L501.2300, L501.5200, L100.0100 ####[facility] [address] [place], [address] Absolute Neut 4.6 X10 3/uL Normal 2.0-7.[address] [facility] Comment on above: Performed By: #### L 500.4050, L501.2300, L501.5200, L100.0100 ####[facility] [address] [place], [address] Basophils/100 WBC (Bld) 0.9 % Normal 0-1 [facility] Comment on above: Performed By: #### L 500.4050, L501.2300, L501.5200, L100.0100 ####[facility] [address] [place], [address] Eosinophils/100 WBC (Bld) 5.1 % High 0-[address] [facility] Comment on above: Performed By: #### L 500.4050, L501.2300, L501.5200, L100.0100 ####[facility] [address] [place], [address] Erythrocyte distribution width (RBC) [Ratio] 14.3 % Normal 11.6-14.[address] [facility] Comment on above: Performed By: #### L 500.4050, L501.2300, L501.5200, L100.0100 ####[facility] [address] [place], [address] Hematocrit (Bld) [Volume fraction] 34.6 % Low 37-[address] [facility] Comment on above: Performed By: #### L 500.4050, L501.2300, L501.5200, L100.0100 ####[facility] [address] [place], [address] Hemoglobin (Bld) [Mass/Vol] 10.7 g/dL Low 12.0-15.[address] [facility] Comment on above: Performed By: #### L 500.4050, L501.2300, L501.5200, L100.0100 ####[facility] [address] [place], [address] IG% 0.700 Normal 0.0-0.[address] [facility] Comment on above: Result Comment: IG% - Immature Granulocytes (promyelocytes, myelocytes andmetamyelocytes) > 1% indicates that a LEFT SHIFT is Present. Performed By: #### L 500.4050, L501.2300, L501.5200, L100.0100 ####[facility] [address] [place], [address] Lymphocytes/100 WBC (Bld) 21.8 % Normal 19-[address] [facility] Comment on above: Performed By: #### L 500.4050, L501.2300, L501.5200, L100.0100 ####[facility] [address] [place], [address] MCH (RBC) [Entitic mass] 28.1 pg Normal 27.0-32.[address] [facility] Comment on above: Performed By: #### L 500.4050, L501.2300, L501.5200, L100.0100 ####[facility] [address] [place], [address] MCHC (RBC) [Mass/Vol] 30.9 g/dL Low 32-36 [facility] Comment on above: Performed By: #### L 500.4050, L501.2300, L501.5200, L100.0100 ####[facility] [address] [place], [address] MCV (RBC) [Entitic vol] 90.8 fL Normal 81-99 [facility] Comment on above: Performed By: #### L 500.4050, L501.2300, L501.5200, L100.0100 ####[facility] [address] [place], [address] Monocytes/100 WBC (Bld) 10.8 % High 0-10 [facility] Comment on above: Performed By: #### L 500.4050, L501.2300, L501.5200, L100.0100 ####[facility] [address] [place], [address] Neutrophils/100 WBC (Bld) 60.7 % Normal 47-[address] [facility] Comment on above: Performed By: #### L 500.4050, L501.2300, L501.5200, L100.0100 ####[facility] [address] [place], [address] Nucleated RBC (Bld) [#/Vol] 0 10*3/uL Normal 0-[address] [facility] Comment on above: Performed By: #### L 500.4050, L501.2300, L501.5200, L100.0100 ####[facility] [address], [address] Platelet mean volume (Bld) [Entitic vol] 9.7 fL Normal 6.2-12.[address] [facility] Comment on above: Performed By: #### L 500.4050, L501.2300, L501.5200, L100.0100 ####[facility] [address] [place], [address] Platelets (Bld) [#/Vol] 369 10*3/uL Normal 150-[address] [facility] Comment on above: Performed By: #### L 500.4050, L501.2300, L501.5200, L100.0100 ####[facility] [address], [address] RBC (Bld) [#/Vol] 3.81 10*6/uL Low 4.2-5.4 [facility] Comment on above: Performed By: #### L 500.4050, L501.2300, L501.5200, L100.0100 ####[facility] [address] [place], [address] RDW SD 47.6 fl High 35.1-43.[address] [facility] Comment on above: Performed By: #### L 500.4050, L501.2300, L501.5200, L100.0100 ####[facility] [address] [place], [address] WBC (Bld) [#/Vol] 7.6 10*3/uL Normal 4.4-11.0 [facility] Comment on above: Performed By: #### L 500.4050, L501.2300, L501.5200, L100.0100 ####[facility] [address] [place], [address] Comprehensive Metabolic Prof ilon 05-17-2024 Albumin [Mass/Vol] 3.0 g/dL Low 3.2-5.0 [facility] Comment on above: Performed By: #### L 500.4050, L501.2300, L501.5200, L100.0100 ####[facility] [address] [place], [address] Albumin/Globulin [Mass ratio] 0.8 {ratio} Low 0.9-2.[address] [facility] Comment on above: Performed By: #### L 500.4050, L501.2300, L501.5200, L100.0100 ####[facility] [address] [place], [address] ALK P 59 U/L Normal 45-[address] [facility] Comment on above: Performed By: #### L 500.4050, L501.2300, L501.5200, L100.0100 ####[facility] [address] [place], [address] ALT [Catalytic activity/Vol] 20 U/L Normal 13-[address] [facility] Comment on above: Performed By: #### L 500.4050, L501.2300, L501.5200, L100.0100 ####[facility] [address] [place], [address] AST [Catalytic activity/Vol] 28 U/L Normal 15-[address] [facility] Comment on above: Performed By: #### L 500.4050, L501.2300, L501.5200, L100.0100 ####[facility] [address] [place], [address] Bilirubin [Mass/Vol] 0.30 mg/dL Normal 0.20-1.00 [facility] Comment on above: Result Comment: For patients on eltrombopag therapy, use of Dimension [place] TBIL is not recommended. Performed By: #### L 500.4050, L501.2300, L501.5200, L100.0100 ####[facility] [address], [address] BUN/CRE 34.4 RATIO High 10-[address] [facility] Comment on above: Performed By: #### L 500.4050, L501.2300, L501.5200, L100.0100 ####[facility] [address], [address] CA,Total 8.8 mg/dL Normal 8.5-10.[address] [facility] Comment on above: Performed By: #### L 500.4050, L501.2300, L501.5200, L100.0100 ####[facility] [address], [address] Chloride [Moles/Vol] 106 mmol/L Normal 98-107 [facility] Comment on above: Performed By: #### L 500.4050, L501.2300, L501.5200, L100.0100 ####[facility] [address] [place], [address] CO2 [Moles/Vol] 25.0 mmol/L Normal 21.0-32.[address] [facility] Comment on above: Performed By: #### L 500.4050, L501.2300, L501.5200, L100.0100 ####[facility] [address], [address] Creatinine [Mass/Vol] 0.82 mg/dL Normal 0.55-1.02 [facility] Comment on above: Result Comment: The validity of the calculated GFR GFRAA in patients over70 years has not been determined. Clinical correlation isessential. Performed By: #### L 500.4050, L501.2300, L501.5200, L100.0100 ####[facility] [address] [place], [address] ECRCL 42.52 ml/min Normal [facility] Comment on above: Performed By: #### L 500.4050, L501.2300, L501.5200, L100.0100 ####[facility] [address] [place], [address] EST GFR - AA 85 mL/min Normal >[address] [facility] Comment on above: Result Comment: Afri can [place] GFR Calc Performed By: #### L 500.4050, L501.2300, L501.5200, L100.0100 ####[facility] [address], [address] GAP 5 Normal 5-[address] [facility] Comment on above: Performed By: #### L 500.4050, L501.2300, L501.5200, L100.0100 ####[facility] [address], [address] GFR/1.73 sq M.predicted among non-blacks MDRD (S/P/Bld) [Vol rate/Area] 70 mL/min/{1.73_m2} Normal >[address] [facility] Comment on above: Result Comment: Non- GFR Calc Performed By: #### L 500.4050, L501.2300, L501.5200, L100.0100 ####[facility] [address], [address] Globulin (S) [Mass/Vol] 3.7 g/dL Normal 2.2-4.2 [facility] Comment on above: Performed By: #### L 500.4050, L501.2300, L501.5200, L100.0100 ####[facility] [address] [place], [address] Glucose [Mass/Vol] 102 mg/dL Normal 74-106 [facility] Comment on above: Result Comment: Fast ing Glucose result from 100 to 125 mg/dLsuggests IMPAIRED HOMEOSTASIS per A.D.A. criteria. Performed By: #### L 500.4050, L501.2300, L501.5200, L100.0100 ####[facility] [address] [place], [address] Potassium [Moles/Vol] 4.1 mmol/L Normal 3.5-5.1 [facility] Comment on above: Performed By: #### L 500.4050, L501.2300, L501.5200, L100.0100 ####[facility] [address], [address] Sodium [Moles/Vol] 136 mmol/L Normal 136-145 [facility] Comment on above: Performed By: #### L 500.4050, L501.2300, L501.5200, L100.0100 ####[facility] [address], [address] T PROT 6.7 g/dL Normal 6.4-8.[address] [facility] Comment on above: Performed By: #### L 500.4050, L501.2300, L501.5200, L100.0100 ####[facility] [address], [address] Urea nitrogen [Mass/Vol] 28 mg/dL High 7-[address] [facility] Comment on above: Performed By: #### L 500.4050, L501.2300, L501.5200, L100.0100 ####[facility] [address] [place], [place], [address] Eosinophil percentageOrdered By: Aleks Marshall on 05-17-2024 Eosinophil percentage 5.1 % High 0-5 [facility] Immature granulocytes/100 WB C Auto (Bld)Ordered By: Aleks Marshall on 05-17-2024 Automated immature granulocyte percentage 0.700 % 0.0-0.[address] [facility] Lymphocytes Auto (Unsp spec) [#/Vol]Ordered By: Aleks Marshall on 05-17-2024 Absolute lymphocyte count 1.66 X10^3/uL 0.83-4.[address] [facility] Lymphocytes/100 WBC Auto (Un sp spec)Ordered By: Aleks Marshall on 05-17-2024 Automated lymphocyte count as percentage of total leukocytes 21.8 % 19-[address] [facility] Magnesiumon 05-17-2024 Magnesium [Mass/Vol] 2.4 mg/dL Normal 1.6-2.6 [facility] Comment on above: Performed By: #### L 500.4050, L501.2300, L501.5200, L100.0100 ####[facility] [address] [place], [place], [address] Monocyte percentageOrdered B y: Aleks Marshall on 05-17-2024 Monocyte percentage 10.8 % High 0-10 [facility] Neutrophil percentageOrdered By: Aleks Marshall on 05-17-2024 Neutrophil percentage 60.7 % 47-70 [facility] No Panel InformationOrdered By: Aleks Marshall on 05-17-2024 28 U/L 15-[address] [facility] Nucleated red blood cell per centageOrdered By: Aleks Marshall on 05-17-2024 Nucleated red blood cell percentage 0 % 0-[address] [facility] Phosphoruson 05-17-2024 Phosphate [Mass/Vol] 2.4 mg/dL Low 2.5-4.9 [facility] Comment on above: Performed By: #### L 500.4050, L501.2300, L501.5200, L100.0100 ####[facility] [address], [address] Serum globulin measurementOr dered By: Aleks Marshall on 05-17-2024 Serum globulin measurement 3.7 g/dL 2.2-4.[address] [facility] Total proteinOrdered By: Aleks Marshall on 05-17-2024 Total protein 6.7 g/dL 6.4-8.[address] [facility] Urinalysis, Completeon 05-17 WBC 5-10 SEEN Normal 0-[address] [facility] Comment on above: Order Comment: COLT TER SPECIMEN Performed By: #### L 400.0001 ####[facility] [address] [place], [address] BACTERIA 0 SEEN Normal None Seen [facility] Comment on above: Order Comment: COLT TER SPECIMEN Performed By: #### L 400.0001 ####[facility] [address], [address] EPI,SQUAMOUS 0 SEEN Normal 5-[address] [facility] Comment on above: Order Comment: COLT TER SPECIMEN Performed By: #### L 400.0001 ####[facility] [address], [address] Mucus Ql (Urine sed) 0 SEEN Normal [facility] Comment on above: Order Comment: COLT TER SPECIMEN Performed By: #### L 400.0001 ####[facility] [address], [address] RBC 0 SEEN Normal 0-[address] [facility] Comment on above: Order Comment: COLT TER SPECIMEN Performed By: #### L 400.0001 ####[facility] [address] [place], [address] Urine cultureOrdered By: Aleks Marshall on 05-17-2024 Urine culture Escherichia coli Abnormal [facility] HEALTHon 05-16-2024 ALLIED HEALTH HNO ID: [id number] Author: TOMER TRAN Art Therapist Service: Art Therapy Author Type: Therapist Type: Allied Health Filed: 05/16/2024 12:15 Note Text: ART THERAPY NOTE SERVICE DATE: 05/16/2024 SERVICE TIME: 10:30AM Referred By: OT Reason for Referral: Anxiety / Coping Skills / Depressed Mood / Self-Expression / Motor Session Type: Initial COMMENTS: Consult received and appreciated. Pt sitting in bedside chair as contract writer introduced self and services. Pt shared anticipation of discharge today, pending blood pressure. Declined formal session but welcomed materials for independent use. Shared interest in formal session if admitted through the week. Provided desired materials and shared to follow pending availability. Denied further needs and expressed appreciation. Will follow up as able. SIGNATURE: Mckinley Duron Therapist PATIENT NAME: Jatin Soloomn DATE: May 16, 2024 TIME: 12:13 PM PAGER/CONTACT #: [phone] Normal [facility] Brain/Head without Contrasto n 05-16-2024 Brain/Head without Contrast Normal [facility] CBC panel Auto (Bld)on 05-16 Erythrocyte distribution width (RBC) [Ratio] 13.9 % Normal 11.5-15.0 [facility] Comment on above: Order Comment: Speci men Type: BLOOD SPECIMENOrdering Facility: [facility] Address: [address] [place] [address] Performed By: #### 5 8410-2 ####[facility] LABCLIA [id number] [place] [address] [place] Hematocrit (Bld) [Volume fraction] 33.9 % Low 36.0-46.0 [facility] Comment on above: Order Comment: Speci men Type: BLOOD SPECIMENOrdering Facility: [facility] Address: [address] [place] [address] Performed By: #### 5 8410-2 ####[facility] LABCLIA [id number] [place] [address] [place] Hemoglobin (Bld) [Mass/Vol] 10.7 g/dL Low 11.5-15.5 [facility] Comment on above: Order Comment: Speci men Type: BLOOD SPECIMENOrdering Facility: [facility] Address: [address] [place] [address] Performed By: #### 5 8410-2 ####[facility] LABIA [id number] [place] [address] [place] MCH (RBC) [Entitic mass] 28.5 pg Normal 26.0-34.0 [facility] Comment on above: Order Comment: Speci men Type: BLOOD SPECIMENOrdering Facility: [facility] Address: [address] [place] [address] Performed By: #### 5 8410-2 ####[facility] LABIA [id number] [place] [address] [place] MCHC (RBC) [Mass/Vol] 31.6 g/dL Normal 30.5-36.0 [facility] Comment on above: Order Comment: Speci men Type: BLOOD SPECIMENOrdering Facility: [facility] Address: [address] [place] [address] Performed By: #### 5 8410-2 ####[facility] LABIA [id number] [place] [address] [place] MCV (RBC) [Entitic vol] 90.4 fL Normal 80.0-100.[address] [facility] Comment on above: Order Comment: Speci men Type: BLOOD SPECIMENOrdering Facility: [facility] Address: [address] [place] [address] Performed By: #### 5 8410-2 ####[facility] LABIA [id number] [place] [address] [place] Nucleated RBC (Bld) [#/Vol] 10*3/uL Normal <0.01 [facility] Comment on above: Order Comment: Speci men Type: BLOOD SPECIMENOrdering Facility: [facility] Address: [address] [place] [address] Performed By: #### 5 8410-2 ####[facility] LABCLIA [id number] [place] [address] [place] Platelet mean volume (Bld) [Entitic vol] 9.8 fL Normal 9.0-12.7 [facility] Comment on above: Order Comment: Speci men Type: BLOOD SPECIMENOrdering Facility: [facility] Address: [address] [place] [address] Performed By: #### 5 8410-2 ####[facility] LABCLIA [id number] [place] [address] [place] Platelets (Bld) [#/Vol] 333 10*3/uL Normal 150-400 [facility] Comment on above: Order Comment: Speci men Type: BLOOD SPECIMENOrdering Facility: [facility] Address: [address] [place] [address] Performed By: #### 5 8410-2 ####[facility] LABIA [id number] [place] [address] [place] RBC (Bld) [#/Vol] 3.75 10*6/uL Low 3.90-5.20 [facility] Comment on above: Order Comment: Speci men Type: BLOOD SPECIMENOrdering Facility: [facility] Address: [address] [place] [address] Performed By: #### 5 8410-2 ####[facility] LABCLIA [id number] [place] [address] [place] WBC (Bld) [#/Vol] 7.15 10*3/uL Normal 3.70-11.00 [facility] Comment on above: Order Comment: Speci men Type: BLOOD SPECIMENOrdering Facility: [facility] Address: [address] [place] [address] Performed By: #### 5 8410-2 ####[facility] LABCLIA [id number] [place] [id number] [place] CNDSon 05-16-2024 CNDS HNO ID: [id number] Author: CARI WONG MD, PhD Service: Neurology Stroke Author Type: Physician Type: Discharge Summary Filed: 05/17/2024 21:16 Note Text: DISCHARGE SUMMARY NEURO STROKE PATIENT NAME: Jatin Solomon ADMISSION DATE: 05/11/2024 DISCHARGE DATE: 05/16/2024 [...] (POA: Yes) 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 Normal [facility] NURSING PROGon 05-16-2024 NURSING PROG HNO ID: [id number] Author: PEEWEE GAGNON, RN Service: Nursing Author [...] a warm blanket over her legs. Normal [facility] Renal function 2000 panelon 05-16-2024 Albumin [Mass/Vol] 3.6 g/dL Low 3.9-4.9 [facility] Comment on above: Order Comment: Speci men Type: BLOOD SPECIMENOrdering Facility: [facility] Address: [address] [place] [address] Performed By: #### 2 4362-6 ####[facility] LABCLIA [id number] [place] [address] [place] Anion gap [Moles/Vol] 12 mmol/L Normal 8-15 [facility] Comment on above: Order Comment: Speci men Type: BLOOD SPECIMENOrdering Facility: [facility] Address: [address] [place] [address] Performed By: #### 2 4362-6 ####[facility] LABCLIA [id number] [place] [address] [place] Calcium [Mass/Vol] 8.9 mg/dL Normal 8.5-10.2 [facility] Comment on above: Order Comment: Speci men Type: BLOOD SPECIMENOrdering Facility: [facility] Address: [address] [place] [address] Performed By: #### 2 4362-6 ####[facility] LABCLIA [id number] [place] [id number] [place] Chloride [Moles/Vol] 102 mmol/L Normal 98-107 [facility] Comment on above: Order Comment: Speci men Type: BLOOD SPECIMENOrdering Facility: [facility] Address: [address] [place] [address] Performed By: #### 2 4362-6 ####[facility] LABCLIA [id number] [place] [address] [place] CO2 [Moles/Vol] 24 mmol/L Normal 22-30 [facility] Comment on above: Order Comment: Speci men Type: BLOOD SPECIMENOrdering Facility: [facility] Address: [address] [place] [address] Performed By: #### 2 4362-6 ####[facility] LABCLIA [id number] [place] [address] [place] Creatinine [Mass/Vol] 0.87 mg/dL Normal 0.58-0.96 [facility] Comment on above: Order Comment: Speci men Type: BLOOD SPECIMENOrdering Facility: [facility] Address: [address] [place] [address] Performed By: #### 2 4362-6 ####[facility] LABCLIA [id number] [place] [address] [place] Creatinine and Glomerular filtration rate.predicted panel (S/P/Bld) 64 mL/min/1.73m??? Normal >=60 [facility] Comment on above: Order Comment: Speci men Type: BLOOD SPECIMENOrdering Facility: [facility] Address: [address] [place] [address] Result Comment: Michael mated Glomerular Filtration Rate [...] actual GFR. Performed By: #### 2 4362-6 ####[facility] LABIA [id number] [place] [address] [place] Glucose [Mass/Vol] 95 mg/dL Normal 74-99 [facility] Comment on above: Order Comment: Christopher hurd Type: BLOOD SPECIMENOrdering Facility: [facility] Address: [address] [place] [address] Result Comment: The [place] [employer] (ADA) provides guidance for cutoff [...] Standards of Medical Care in Diabetes 2016, [place] [employer]. Diabetes Care. 2016.39(Suppl 1). Performed By: #### 2 4362-6 ####[facility] LABIA [id number] [place] [id number] [place] Phosphate [Mass/Vol] 2.7 mg/dL Normal 2.7-4.8 [facility] Comment on above: Order Comment: Christopher hurd Type: BLOOD SPECIMENOrdering Facility: [facility] Address: [address] [place] [address] Performed By: #### 2 4362-6 ####[facility] LABIA [id number] [address] [address] [place] Potassium [Moles/Vol] 4.4 mmol/L Normal 3.7-5.1 [facility] Comment on above: Order Comment: Speci men Type: BLOOD SPECIMENOrdering Facility: [facility] Address: [address] [place] [address] Performed By: #### 2 4362-6 ####[facility] LABCLIA [id number] [place] [address] [place] Sodium [Moles/Vol] 138 mmol/L Normal 136-144 [facility] Comment on above: Order Comment: Speci men Type: BLOOD SPECIMENOrdering Facility: [facility] Address: [address] [place] [address] Performed By: #### 2 4362-6 ####[facility] LABCLIA [id number] [place] [address] [place] Urea nitrogen [Mass/Vol] 27 mg/dL High 7-21 [facility] Comment on above: Order Comment: Speci men Type: BLOOD SPECIMENOrdering Facility: [facility] Address: [address] [place] [address] Performed By: #### 2 4362-6 ####[facility] LABCLIA [id number] [place] [address] [place] CBC panel Auto (Bld)on 05-15 Erythrocyte distribution width (RBC) [Ratio] 14.1 % Normal 11.5-15.0 [facility] Comment on above: Order Comment: Speci men Type: BLOOD SPECIMENOrdering Facility: [facility] Address: [address] [place] [address] Performed By: #### 5 8410-2 ####[facility] LABCLIA [id number] [place] [address] [place] Hematocrit (Bld) [Volume fraction] 33.7 % Low 36.0-46.0 [facility] Comment on above: Order Comment: Speci men Type: BLOOD SPECIMENOrdering Facility: [facility] Address: [address] [place] [address] Performed By: #### 5 8410-2 ####[facility] LABCLIA [id number] [place] [address] [place] Hemoglobin (Bld) [Mass/Vol] 10.8 g/dL Low 11.5-15.5 [facility] Comment on above: Order Comment: Speci men Type: BLOOD SPECIMENOrdering Facility: [facility] Address: [address] [place] [address] Performed By: #### 5 8410-2 ####[facility] LABCLIA [id number] [place] [address] [place] MCH (RBC) [Entitic mass] 29.0 pg Normal 26.0-34.0 [facility] Comment on above: Order Comment: Speci men Type: BLOOD SPECIMENOrdering Facility: [facility] Address: [address] [place] [address] Performed By: #### 5 8410-2 ####[facility] LABCLIA [id number] [place] [address] [place] MCHC (RBC) [Mass/Vol] 32.0 g/dL Normal 30.5-36.0 [facility] Comment on above: Order Comment: Speci men Type: BLOOD SPECIMENOrdering Facility: [facility] Address: [address] [place] [address] Performed By: #### 5 8410-2 ####[facility] LABCLIA [id number] [place] [address] [place] MCV (RBC) [Entitic vol] 90.3 fL Normal 80.0-100.[address] [facility] Comment on above: Order Comment: Speci men Type: BLOOD SPECIMENOrdering Facility: [facility] Address: [address] [place] [address] Performed By: #### 5 8410-2 ####[facility] LABCLIA [id number] [place] [address] [place] Nucleated RBC (Bld) [#/Vol] 10*3/uL Normal <0.01 [facility] Comment on above: Order Comment: Speci men Type: BLOOD SPECIMENOrdering Facility: [facility] Address: [address] [place] [address] Performed By: #### 5 8410-2 ####[facility] LABIA [id number] [place] [address] [place] Platelet mean volume (Bld) [Entitic vol] 9.5 fL Normal 9.0-12.7 [facility] Comment on above: Order Comment: Speci men Type: BLOOD SPECIMENOrdering Facility: [facility] Address: [address] [place] [address] Performed By: #### 5 8410-2 ####[facility] LABIA [id number] [place] [address] [place] Platelets (Bld) [#/Vol] 342 10*3/uL Normal 150-400 [facility] Comment on above: Order Comment: Speci men Type: BLOOD SPECIMENOrdering Facility: [facility] Address: [address] [place] [address] Performed By: #### 5 8410-2 ####[facility] LABIA [id number] [place] [address] [place] RBC (Bld) [#/Vol] 3.73 10*6/uL Low 3.90-5.20 [facility] Comment on above: Order Comment: Speci men Type: BLOOD SPECIMENOrdering Facility: [facility] Address: [address] [place] [address] Performed By: #### 5 8410-2 ####[facility] LABIA [id number] [place] [address] [place] WBC (Bld) [#/Vol] 8.17 10*3/uL Normal 3.70-11.00 [facility] Comment on above: Order Comment: Speci men Type: BLOOD SPECIMENOrdering Facility: [facility] Address: [address] [place] [address] Performed By: #### 5 8410-2 ####[facility] LABCLIA [id number] [place] [address] [place] Renal function 2000 panelon 05-15-2024 Albumin [Mass/Vol] 3.4 g/dL Low 3.9-4.9 [facility] Comment on above: Order Comment: Speci men Type: BLOOD SPECIMENOrdering Facility: [facility] Address: [address] [place] [address] Performed By: #### 2 4362-6 ####[facility] LABCLIA [id number] [place] [address] [place] Anion gap [Moles/Vol] 12 mmol/L Normal 8-15 [facility] Comment on above: Order Comment: Speci men Type: BLOOD SPECIMENOrdering Facility: [facility] Address: [address] [place] [address] Performed By: #### 2 4362-6 ####[facility] LABCLIA [id number] [place] [address] [place] Calcium [Mass/Vol] 8.6 mg/dL Normal 8.5-10.2 [facility] Comment on above: Order Comment: Speci men Type: BLOOD SPECIMENOrdering Facility: [facility] Address: [address] [place] [address] Performed By: #### 2 4362-6 ####[facility] LABCLIA [id number] [place] [address] [place] Chloride [Moles/Vol] 100 mmol/L Normal 98-107 [facility] Comment on above: Order Comment: Speci men Type: BLOOD SPECIMENOrdering Facility: [facility] Address: [address] [place] [address] Performed By: #### 2 4362-6 ####[facility] LABCLIA [id number] [place] [address] [place] CO2 [Moles/Vol] 23 mmol/L Normal 22-30 [facility] Comment on above: Order Comment: Speci men Type: BLOOD SPECIMENOrdering Facility: [facility] Address: [address] [place] [address] Performed By: #### 2 4362-6 ####[facility] LABIA [id number] [place] [address] [place] Creatinine [Mass/Vol] 0.76 mg/dL Normal 0.58-0.96 [facility] Comment on above: Order Comment: Speci men Type: BLOOD SPECIMENOrdering Facility: [facility] Address: [address] [place] [address] Performed By: #### 2 4362-6 ####[facility] LABIA [id number] [place] [address] [place] Creatinine and Glomerular filtration rate.predicted panel (S/P/Bld) 75 mL/min/1.73m??? Normal >=60 [facility] Comment on above: Order Comment: Speci men Type: BLOOD SPECIMENOrdering Facility: [facility] Address: [address] [place] [address] Result Comment: Michael mated Glomerular Filtration Rate [...] actual GFR. Performed By: #### 2 4362-6 ####[facility] LABCLIA [id number] [place] [address] [place] Glucose [Mass/Vol] 90 mg/dL Normal 74-99 [facility] Comment on above: Order Comment: Speci men Type: BLOOD SPECIMENOrdering Facility: [facility] Address: [address] [place] [address] Result Comment: The [place] [employer] (ADA) provides guidance for cutoff [...] Standards of Medical Care in Diabetes 2016, [place] [employer]. Diabetes Care. 2016.39(Suppl 1). Performed By: #### 2 4362-6 ####[facility] LABCLIA [id number] [place] [address] [place] Phosphate [Mass/Vol] 2.4 mg/dL Low 2.7-4.8 [facility] Comment on above: Order Comment: Jeanettei men Type: BLOOD SPECIMENOrdering Facility: [facility] Address: [address] [place] [address] Performed By: #### 2 4362-6 ####[facility] LABCLIA [id number] [place] [address] [place] Potassium [Moles/Vol] 4.1 mmol/L Normal 3.7-5.1 [facility] Comment on above: Order Comment: Speci men Type: BLOOD SPECIMENOrdering Facility: [facility] Address: [address] [place] [address] Performed By: #### 2 4362-6 ####[facility] LABCLIA [id number] [place] [address] [place] Sodium [Moles/Vol] 135 mmol/L Low 136-144 [facility] Comment on above: Order Comment: Speci men Type: BLOOD SPECIMENOrdering Facility: [facility] Address: [address] [place] [address] Performed By: #### 2 4362-6 ####[facility] LABCLIA [id number] [address] [place] Urea nitrogen [Mass/Vol] 20 mg/dL Normal 7-21 [facility] Comment on above: Order Comment: Speci men Type: BLOOD SPECIMENOrdering Facility: [facility] Address: [address] [place] [address] Performed By: #### 2 4362-6 ####[facility] LABIA [id number] [address] [place] ALLIED HEALTHon 05-14-2024 ALLIED HEALTH HNO ID: [id number] Author: YVONNE VICTOR Chaplain Student Service: Spiritual Care Author Type: Student Type: Allied Health Filed: 05/14/2024 13:17 Note Text: SPIRITUAL CARE ASSESSMENT SERVICE DATE: 05/14/2024 SERVICE TIME: 12:30 Visit with: Patient Length of visit (minutes): 30 Nondenominational / Spirituality: Samina Reason: Referral from: Other [...] her. SIGNATURE: Chaplain Jesus Ayoub PATIENT NAME: Jatin Solomon DATE: May 14, 2024 TIME: 1:11 PM PAGER/CONTACT #: [phone] [facility] ALLIED HEALTH HNO ID: [id number] Author: YVONNE VICTOR Chaplain Student Service: Spiritual Care Author Type: Student Type: Allied Health Filed: 05/14/2024 12:07 Note Text: SPIRITUALCARE Spiritual Care Visit- Brief Note Name: Jatin Solomon Date: May 14, 2024 Notes: Chaplain [...] _ SIGNATURE: Chaplain Jesus Ayoub PATIENT NAME: Jatin Solomon DATE: May 14, 2024 TIME: 12:04 PM This is an electronically created document. IF PRINTED, PLEASE DO NOT REMOVE FROM THE CHART OR MODIFY PRINTED COPY. Normal [facility] CASE MANAGEMon 05-14-2024 CASE MANAGEM HNO ID: [id number] Author: ?, ?, ? Service: ? Author Type: ? Type: Care Mgt Progress Note Filed: 05/14/2024 16:27 Note Text: CARE MANAGEMENT PROGRESS NOTE SERVICE DATE: 05/14/2024 SERVICE TIME: 4:27 PM LOS: 3 days Discharge packet completed and dropped off by technology assistant Topher White. Packet is missing AVS/DC forms, please reach out to caser with any discharge related questions. SIGNATURE: Topher White PATIENT NAME: Jatin Solomon DATE: May 14, 2024 TIME: 4:27 PM Normal [facility] CASE MGT INIT Elena 2024 CASE MGT INIT TREY HNO ID: [id number] Author: CYNTHIA ORLANDO RN Service: ? Author [...] by: Per Department Practice Potential Transition Plans Long Term Facility/Intermediat e Care Facility Advance Directives Current Advance Directive: Living Will;Health Care Power of Chart Reader In Chart: No Rn Oncology Attempted to Assist with AD Completion: Yes [...] Patient's Other Post-Acute Care Goal(s): Get Better [place] of Choice Explained: [place] of Choice Given: Yes Level of Care Discussed: Long Term Facility Are you interested in bedside delivery [...] on CPAP, osteoporosis, secondary hypothyroidism transferred from [place] [facility] May 11, 2024 for ICH monitoring. [...] home from the garage. 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 Uses a walker to assist with ambulation. No prior oxygen. Uses a Bipap at night. Retired, manages own medications, does not drive. Family provides transportation. No financial concerns per patient. MARIA ESTHER planned for today. Skilled for SNF. Discussed with patient, and she requested referrals be sent to: [facility] in [place] and [facility] SNF. [facility] tasked to build and send referral. Await response. Medically ready for discharge tomorrow. Will need; accepting facility and transport arranged. No precert required. CM will follow. Update 5pm: patient has been accepted by [facility] for their rehab program. Both patient and medical team are in agreement. A bed will be available on Friday, 05/16. [facility] transport set for 05/16/2024 at 2pm, trip #[id number] DC packet completed by [facility]'s and placed with patient's green chart. Nurse report number is [phone]. Patient updated on transport time for Friday. SIGNATURE: Cynthia Orlando RN PATIENT NAME: Jatin Solomon DATE: May 14, 2024 TIME: 11:31 AM Normal [facility] CBC panel Auto (Bld)on 05-14 Erythrocyte distribution width (RBC) [Ratio] 14.5 % Normal 11.5-15.0 [facility] Comment on above: Order Comment: Speci men Type: BLOOD SPECIMENOrdering Facility: [facility] Address: [address] [place] [address] Performed By: #### 5 8410-2 ####[facility] LABIA [id number] [place] [address] [place] Hematocrit (Bld) [Volume fraction] 33.7 % Low 36.0-46.0 [facility] Comment on above: Order Comment: Speci men Type: BLOOD SPECIMENOrdering Facility: [facility] Address: [address] [place] [address] Performed By: #### 5 8410-2 ####[facility] LABIA [id number] [place] [address] [place] Hemoglobin (Bld) [Mass/Vol] 10.5 g/dL Low 11.5-15.5 [facility] Comment on above: Order Comment: Speci men Type: BLOOD SPECIMENOrdering Facility: [facility] Address: [address] [place] [address] Performed By: #### 5 8410-2 ####[facility] LABIA [id number] [place] [address] [place] MCH (RBC) [Entitic mass] 28.8 pg Normal 26.0-34.0 [facility] Comment on above: Order Comment: Speci men Type: BLOOD SPECIMENOrdering Facility: [facility] Address: [address] [place] [address] Performed By: #### 5 8410-2 ####[facility] LABIA [id number] [address] [id number] [address] [place] MCHC (RBC) [Mass/Vol] 31.2 g/dL Normal 30.5-36.0 [facility] Comment on above: Order Comment: Speci men Type: BLOOD SPECIMENOrdering Facility: [facility] Address: [address] [place] [address] Performed By: #### 5 8410-2 ####[facility] LABCLIA [id number] [place] [address] [place] MCV (RBC) [Entitic vol] 92.6 fL Normal 80.0-100.[address] [facility] Comment on above: Order Comment: Speci men Type: BLOOD SPECIMENOrdering Facility: [facility] Address: [address] [place] [address] Performed By: #### 5 8410-2 ####[facility] LABCLIA [id number] [place] [address] [place] Nucleated RBC (Bld) [#/Vol] 10*3/uL Normal <0.01 [facility] Comment on above: Order Comment: Speci men Type: BLOOD SPECIMENOrdering Facility: [facility] Address: [address] [place] [address] Performed By: #### 5 8410-2 ####[facility] LABCLIA [id number] [place] [address] [place] Platelet mean volume (Bld) [Entitic vol] 9.3 fL Normal 9.0-12.7 [facility] Comment on above: Order Comment: Speci men Type: BLOOD SPECIMENOrdering Facility: [facility] Address: [address] [place] [address] Performed By: #### 5 8410-2 ####[facility] LABCLIA [id number] [place] [address] [place] Platelets (Bld) [#/Vol] 336 10*3/uL Normal 150-400 [facility] Comment on above: Order Comment: Speci men Type: BLOOD SPECIMENOrdering Facility: [facility] Address: [address] [place] [address] Performed By: #### 5 8410-2 ####[facility] LABIA [id number] [place] [address] [place] RBC (Bld) [#/Vol] 3.64 10*6/uL Low 3.90-5.20 [facility] Comment on above: Order Comment: Speci men Type: BLOOD SPECIMENOrdering Facility: [facility] Address: [address] [place] [address] Performed By: #### 5 8410-2 ####[facility] LABIA [id number] [place] [address] [place] WBC (Bld) [#/Vol] 6.22 10*3/uL Normal 3.70-11.00 [facility] Comment on above: Order Comment: Speci men Type: BLOOD SPECIMENOrdering Facility: [facility] Address: [address] [place] [address] Performed By: #### 5 8410-2 ####[facility] LABIA [id number] [place] [address] [place] CNOVon 05-14-2024 CNOV Office Visit (CAFLMN) Jatin SOLOMON ([id number]) 1935 F Date Time Provider Department 05/14/24 [...] Upset Comments: States had GI bleed ADHES. 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 Normal [facility] ECHO TRANSESOPHAGEALon 05-14 ECHO TRANSESOPHAGEAL Echocardiography Report: Transesophageal Echo [facility] J1-5 Date of service: 05/14/2024 11:28:35 AM CASER Ordering physician: CARI WONG Indication: ?Endocarditis Technologist: fellow Fellow: Sami Johnson MD Interpreting physician: Lyle Ferro MD PATIENT: Name: MS. Jatin SOLOMON : 1935 Age: 89 years Gender: [...] * * Final * * * CC [facility] : [id number] [id number] Normal [facility] NURSING PROGon 05-14-2024 NURSING PROG HNO ID: [id number] Author: DAMARI WIGGINS, ALBERT Service: ? Author [...] Damari Wiggins RN In Department: CARDIOLOGY Normal [facility] NURSING PROG HNO ID: [id number] Author: ALBERTO SANTANA RN Service: ? Author Type: Registered Nurse Type: Nursing Progress Note Filed: 05/14/2024 08:52 Note Text: Transfer Note: PATIENT NAME: Jatin Solomon Patient Location: [place] [address] Room: [place] [address] Patient transferred into room/unit [facility]- in stable condition. Actions taken: No futher actions taken at this time. Will continue to monitor and check with patient. Normal [facility] PT panel Coag (PPP)on 2024 INR Coag (PPP) [Relative time] 1.0 {INR} Normal 0.9-1.3 [facility] Comment on above: Order Comment: Speci men Type: BLOOD SPECIMENOrdering Facility: [facility] Address: [address] [place], [place] [address] Result Comment: Nathalie min K Antagonist (VKA) Therapeutic Range: INR 2 to 3 (Target INR of 2.5) Note: For patients treated with VKA drugs, such as warfarin, the [place] [employer] 2012 Guideline recommends [...] Chest 2012, 141:7S-47S Cam RA, et al. [facility] 2017, 70: 252-289 Performed By: #### 3 4528-0 ####[facility] LABIA [id number] [place] [address] [place] PT Coag (PPP) [Time] 11.1 s Normal 9.7-13.0 [facility] Comment on above: Order Comment: Speci men Type: BLOOD SPECIMENOrdering Facility: [facility] Address: [address] [place] [address] Performed By: #### 3 4528-0 ####[facility] [id number] [place] [address] [place] Renal function 2000 panelon 05-14-2024 Albumin [Mass/Vol] 3.4 g/dL Low 3.9-4.9 [facility] Comment on above: Order Comment: Speci men Type: BLOOD SPECIMENOrdering Facility: [facility] Address: [address] [place] [address] Performed By: #### 2 4362-6 ####[facility] LABIA [id number] [place] [address] [place] Anion gap [Moles/Vol] 12 mmol/L Normal 8-15 [facility] Comment on above: Order Comment: Speci men Type: BLOOD SPECIMENOrdering Facility: [facility] Address: [address] [place] [id number] Performed By: #### 2 4362-6 ####[facility] LABCLIA [id number] [address] [address] [place] Calcium [Mass/Vol] 8.5 mg/dL Normal 8.5-10.2 [facility] Comment on above: Order Comment: Speci men Type: BLOOD SPECIMENOrdering Facility: [facility] Address: [address] [place], [place] [address] Performed By: #### 2 4362-6 ####[facility] LABCLIA [id number] [place] [address] [place] Chloride [Moles/Vol] 103 mmol/L Normal 98-107 [facility] Comment on above: Order Comment: Speci men Type: BLOOD SPECIMENOrdering Facility: [facility] Address: [address] [place] [address] Performed By: #### 2 4362-6 ####[facility] LABCLIA [id number] [place] [address] [place] CO2 [Moles/Vol] 22 mmol/L Normal 22-30 [facility] Comment on above: Order Comment: Speci men Type: BLOOD SPECIMENOrdering Facility: [facility] Address: [address] [place], [place] [address] Performed By: #### 2 4362-6 ####[facility] LABCLIA [id number] [place] [id number] [place] Creatinine [Mass/Vol] 0.89 mg/dL Normal 0.58-0.96 [facility] Comment on above: Order Comment: Speci men Type: BLOOD SPECIMENOrdering Facility: [facility] Address: [address] [place] [id number] Performed By: #### 2 4362-6 ####[facility] LABCLIA [id number] [place] [id number] [place] Creatinine and Glomerular filtration rate.predicted panel (S/P/Bld) 62 mL/min/1.73m??? Normal >=60 [facility] Comment on above: Order Comment: Christopher hurd Type: BLOOD SPECIMENOrdering Facility: [facility] Address: [address] [place] [address] Result Comment: Michael mated Glomerular Filtration Rate [...] actual GFR. Performed By: #### 2 4362-6 ####[facility] LABCLIA [id number] [place] [address] [place] Glucose [Mass/Vol] 91 mg/dL Normal 74-99 [facility] Comment on above: Order Comment: Christopher hurd Type: BLOOD SPECIMENOrdering Facility: [facility] Address: [address] [place] [address] Result Comment: The [place] [employer] (ADA) provides guidance for cutoff [...] Standards of Medical Care in Diabetes 2016, [place] [employer]. Diabetes Care. 2016.39(Suppl 1). Performed By: #### 2 4362-6 ####[facility] LABIA [id number] [place] [address] [place] Phosphate [Mass/Vol] 4.0 mg/dL Normal 2.7-4.8 [facility] Comment on above: Order Comment: Speci men Type: BLOOD SPECIMENOrdering Facility: [facility] Address: [address] [place] [address] Performed By: #### 2 4362-6 ####[facility] LABCLIA [id number] [place] [place] [id number] [place] Potassium [Moles/Vol] 4.6 mmol/L Normal 3.7-5.1 [facility] Comment on above: Order Comment: Speci men Type: BLOOD SPECIMENOrdering Facility: [facility] Address: [address] [place] [address] Performed By: #### 2 4362-6 ####[facility] LABCLIA [id number] [place] [address] [place] Sodium [Moles/Vol] 137 mmol/L Normal 136-144 [facility] Comment on above: Order Comment: Speci men Type: BLOOD SPECIMENOrdering Facility: [facility] Address: [address] [place] [address] Performed By: #### 2 4362-6 ####[facility] LABCLIA [id number] [place] [address] [place] Urea nitrogen [Mass/Vol] 23 mg/dL High 7-21 [facility] Comment on above: Order Comment: Speci men Type: BLOOD SPECIMENOrdering Facility: [facility] Address: [address] [place] [address] Performed By: #### 2 4362-6 ####[facility] LABCLIA [id number] [place] [id number] [place] THERAPY NTon 05-14-2024 THERAPY NT HNO ID: [id number] Author: MARCELLA TERRY, PT, DPT Service: Physical Therapy Author Type: Physical Therapist Type: Therapy (PT/OT/Speech/Resp) Filed: 05/14/2024 16:13 Note Text: PHYSICAL THERAPY MISSED VISIT SERVICE DATE: 05/14/2024 SERVICE TIME: 1402 ROOM: [facility]41 Patient not seen due to Declined to Participate. Pt waiting for lunch, requesting PT to return later. PT will continue to follow and re-attempt as able. SIGNATURE: Marcella Terry PT, DPT PATIENT NAME: Jatin Solomon DATE: May 14, 2024 TIME: 4:13 PM Normal [facility] THERAPY NT HNO ID: [id number] Author: ROLANDA WEEKS, OTR/L Service: Occupational Therapy Author Type: Occupational Therapist Type: Therapy (PT/OT/Speech/Resp) Filed: 05/14/2024 10:08 Note Text: Occupational Therapy Evaluation Summary SERVICE DATE: 05/14/2024 SERVICE TIME: 0846 to 0956 ROOM: [place] [address] OT 6 Clicks Score: 16 DISCHARGE RECOMMENDATIONS [...] Fall Risk CURRENT HOSPITAL COURSE transferred from [place] [facility] May 11, 2024 with RF cortical [...] (05/14/24) Administered the Short Blessed Test (Blessed Fuwccljmoin-Nixche-G oncentration Test) was derived from the longer [...] symptoms and signs-other TREATMENT INTERVENTIONS Evaluation, Self Retirement Management (72248), Neuromuscular Reeducation (22165) Timed Code Treatment (minutes): 55 Skilled Treatment [...] Moderate Assistance (more content not included)... Normal [facility] ALLIED HEALTHon 05-13-2024 ALLIED HEALTH HNO ID: [id number] Author: AYESHA PAEZ MRI Tech Service: Radiology Author Type: Technologist Type: Allied Health Filed: 05/13/2024 09:03 Note Text: Radiology Service Progress Note PATIENT NAME: Jatin Solomon DATE OF SERVICE: May 13, 2024 [...] PATIENT PRESENTS WITH AN IMPLANTABLE OR ATTACHED GEOSPATIAL IMAGERY INTELLIGENCE ANALYST: No RADIOLOGY DEPARTMENT: MR; Exam(s) Completed: Head: Routine Brain PERIPHERAL IV DATA: Inpatient: see LDA documentation SIGNED BY: LE Whitman May 13, 2024 9:02 AM Normal [facility] Bacteria Bld Culton 05-13-19 25 Bacteria identified Cx Nom (Bld) CULTURE, BLOOD: No growth 5 days Normal [facility] Comment on above: Performed By: #### 6 00-7 ####[facility] LABCLIA [id number] [place] [address] [place] CBC W Auto Differential pane l (Bld)on 05-13-2024 Basophils (Bld) [#/Vol] 0.05 10*3/uL Normal <0.11 [facility] Comment on above: Order Comment: Speci men Type: BLOOD SPECIMENOrdering Facility: [facility] Address: [address] [place] [address] Performed By: #### 5 7021-8 ####[facility] LABCLIA [id number] [address] [place] Basophils/100 WBC (Bld) 0.7 % Normal [facility] Comment on above: Order Comment: Speci men Type: BLOOD SPECIMENOrdering Facility: [facility] Address: [address] [place] [address] Performed By: #### 5 7021-8 ####[facility] LABCLIA [id number] [place] [address] [place] Differential cell count method Nom (Bld) Auto Normal [facility] Comment on above: Order Comment: Speci men Type: BLOOD SPECIMENOrdering Facility: [facility] Address: [address] [place] [address] Performed By: #### 5 7021-8 ####[facility] LABCLIA [id number] [place] [address] [place] Eosinophils (Bld) [#/Vol] 0.32 10*3/uL Normal <0.46 [facility] Comment on above: Order Comment: Speci men Type: BLOOD SPECIMENOrdering Facility: [facility] Address: [address] [place] [address] Performed By: #### 5 7021-8 ####[facility] LABCLIA [id number] [address] [place] Eosinophils/100 WBC (Bld) 4.7 % Normal [facility] Comment on above: Order Comment: Speci men Type: BLOOD SPECIMENOrdering Facility: [facility] Address: [address] [place] [address] Performed By: #### 5 7021-8 ####[facility] LABCLIA [id number] [place] [address] [place] Erythrocyte distribution width (RBC) [Ratio] 14.5 % Normal 11.5-15.0 [facility] Comment on above: Order Comment: Speci men Type: BLOOD SPECIMENOrdering Facility: [facility] Address: [address] [place] [address] Performed By: #### 5 7021-8 ####[facility] LABCLIA [id number] [place] [address] [place] Hematocrit (Bld) [Volume fraction] 33.3 % Low 36.0-46.0 [facility] Comment on above: Order Comment: Speci men Type: BLOOD SPECIMENOrdering Facility: [facility] Address: [address] [place] [address] Performed By: #### 5 7021-8 ####[facility] LABIA [id number] [place] [address] [place] Hemoglobin (Bld) [Mass/Vol] 10.4 g/dL Low 11.5-15.5 [facility] Comment on above: Order Comment: Speci men Type: BLOOD SPECIMENOrdering Facility: [facility] Address: [address] [place] [address] Performed By: #### 5 7021-8 ####[facility] LABCLIA [id number] [place] [address] [place] Immature granulocytes (Bld) [#/Vol] 10*3/uL Normal <0.10 [facility] Comment on above: Order Comment: Speci men Type: BLOOD SPECIMENOrdering Facility: [facility] Address: [address] [place] [address] Performed By: #### 5 7021-8 ####[facility] LABCLIA [id number] [place] [address] [place] Immature granulocytes/100 WBC (Bld) 0.3 % Normal [facility] Comment on above: Order Comment: Speci men Type: BLOOD SPECIMENOrdering Facility: [facility] Address: [address] [place] [address] Performed By: #### 5 7021-8 ####[facility] LABCLIA [id number] [place] [address] [place] Lymphocytes (Bld) [#/Vol] 1.57 10*3/uL Normal 1.00-4.00 [facility] Comment on above: Order Comment: Speci men Type: BLOOD SPECIMENOrdering Facility: [facility] Address: [address] [place] [address] Performed By: #### 5 7021-8 ####[facility] LABCLIA [id number] [place] [address] [place] Lymphocytes/100 WBC (Bld) 23.3 % Normal [facility] Comment on above: Order Comment: Speci men Type: BLOOD SPECIMENOrdering Facility: [facility] Address: [address] [place] [address] Performed By: #### 5 7021-8 ####[facility] LABCLIA [id number] [place] [address] [place] MCH (RBC) [Entitic mass] 28.7 pg Normal 26.0-34.0 [facility] Comment on above: Order Comment: Speci men Type: BLOOD SPECIMENOrdering Facility: [facility] Address: [address] [place] [address] Performed By: #### 5 7021-8 ####[facility] LABCLIA [id number] [place] [address] [place] MCHC (RBC) [Mass/Vol] 31.2 g/dL Normal 30.5-36.0 [facility] Comment on above: Order Comment: Speci men Type: BLOOD SPECIMENOrdering Facility: [facility] Address: [address] [place] [address] Performed By: #### 5 7021-8 ####[facility] LABCLIA [id number] [place] [address] [place] MCV (RBC) [Entitic vol] 92.0 fL Normal 80.0-100.[address] [facility] Comment on above: Order Comment: Speci men Type: BLOOD SPECIMENOrdering Facility: [facility] Address: [address] [place] [address] Performed By: #### 5 7021-8 ####[facility] LABCLIA [id number] [place] [address] [place] Monocytes (Bld) [#/Vol] 0.74 10*3/uL Normal <0.87 [facility] Comment on above: Order Comment: Speci men Type: BLOOD SPECIMENOrdering Facility: [facility] Address: [address] [place] [address] Performed By: #### 5 7021-8 ####[facility] LABCLIA [id number] [place] [address] [place] Monocytes/100 WBC (Bld) 11.0 % Normal [facility] Comment on above: Order Comment: Speci men Type: BLOOD SPECIMENOrdering Facility: [facility] Address: [address] [place] [address] Performed By: #### 5 7021-8 ####[facility] LABCLIA [id number] [place] [address] [place] Neutrophils (Bld) [#/Vol] 4.04 10*3/uL Normal 1.45-7.50 [facility] Comment on above: Order Comment: Speci men Type: BLOOD SPECIMENOrdering Facility: [facility] Address: [address] [place] [address] Performed By: #### 5 7021-8 ####[facility] LABCLIA [id number] [place] [address] [place] Neutrophils/100 WBC (Bld) 60.0 % Normal [facility] Comment on above: Order Comment: Speci men Type: BLOOD SPECIMENOrdering Facility: [facility] Address: [address] [place] [address] Performed By: #### 5 7021-8 ####[facility] LABCLIA [id number] [place] [address] [place] Nucleated RBC (Bld) [#/Vol] 10*3/uL Normal <0.01 [facility] Comment on above: Order Comment: Speci men Type: BLOOD SPECIMENOrdering Facility: [facility] Address: [address] [place] [address] Performed By: #### 5 7021-8 ####[facility] LABCLIA [id number] [place] [address] [place] Nucleated RBC/100 WBC (Bld) [Ratio] 0.0 /100 WBC Normal [facility] Comment on above: Order Comment: Speci men Type: BLOOD SPECIMENOrdering Facility: [facility] Address: [address] [place] [address] Performed By: #### 5 7021-8 ####[facility] LABCLIA [id number] [place] [address] [place] Platelet mean volume (Bld) [Entitic vol] 9.4 fL Normal 9.0-12.7 [facility] Comment on above: Order Comment: Speci men Type: BLOOD SPECIMENOrdering Facility: [facility] Address: [address] [place] [address] Performed By: #### 5 7021-8 ####[facility] LABCLIA [id number] [place] [address] [place] Platelets (Bld) [#/Vol] 334 10*3/uL Normal 150-400 [facility] Comment on above: Order Comment: Speci men Type: BLOOD SPECIMENOrdering Facility: [facility] Address: [address] [place] [address] Performed By: #### 5 7021-8 ####[facility] LABCLIA [id number] [place] [address] [place] RBC (Bld) [#/Vol] 3.62 10*6/uL Low 3.90-5.20 [facility] Comment on above: Order Comment: Speci men Type: BLOOD SPECIMENOrdering Facility: [facility] Address: [address] [place] [address] Performed By: #### 5 7021-8 ####[facility] LABCLIA [id number] [place] [address] [place] WBC (Bld) [#/Vol] 6.74 10*3/uL Normal 3.70-11.00 [facility] Comment on above: Order Comment: Speci men Type: BLOOD SPECIMENOrdering Facility: [facility] Address: [address] [place] [address] Performed By: #### 5 7021-8 ####[facility] LABIA [id number] [place] [address] [place] CONSULT PROGon 05-13-2024 CONSULT PROG HNO ID: [id number] Author: ESTER MIR MD Service: Neurology Stroke Author Type: Resident Type: Consult Progress Note Filed: 05/13/2024 17:48 Note Text: Attestation signed by Latanya Veras MD at 05/13/2024 8:28 PM [facility] STAFF PHYSICIAN NOTE OF PERSONAL INVOLVEMENT IN CARE I have reviewed the consult note obtained and documented by the resident, and I personally participated in the draper components. I have discussed the case and management of the patient's care. The following comments revise or confirm relevant draper components of the note. Brief Assessment: Jatin Solomon is a 89 year old with [...] day. This note was partially generated using [employer] voice recognition system, and there may be [...] loss alone) 0 Daily NIHSS Score: 0 (01/02/25 1130 : Ester Mir MD) 0 MENTAL STATUS: Alert, oriented to person, place and time and Follows commands CRANIAL NERVES: PERRLA, EOM's intact, Visual aparicio intact to confrontation, Extraocular movements intact, Facial sensation intact, Face symmetric, No facial droop or ptosis, hard of hearing, No dysarthria, Palate elevates symmetrically, and Tongue protrudes midline MOTOR: No d (more content not included)... Normal [facility] Comprehensive metabolic 2000 panelon 05-13-2024 Albumin [Mass/Vol] 3.5 g/dL Low 3.9-4.9 [facility] Comment on above: Order Comment: Speci men Type: BLOOD SPECIMENOrdering Facility: [facility] Address: [address] [place] [address] Performed By: #### 2 276-4, 2777-1, 94131-4, 79787-8, 59165-3 ####[facility] LABCLIA [id number] [place] [address] [place] ALP [Catalytic activity/Vol] 61 U/L Normal 34-123 [facility] Comment on above: Order Comment: Speci men Type: BLOOD SPECIMENOrdering Facility: [facility] Address: [address] [place] [address] Performed By: #### 2 276-4, 2777-1, 76966-5, 39389-5, 25957-6 ####[facility] LABCLIA [id number] [place] [address] [place] ALT [Catalytic activity/Vol] 11 U/L Normal 7-38 [facility] Comment on above: Order Comment: Speci men Type: BLOOD SPECIMENOrdering Facility: [facility] Address: [address] [place] [address] Performed By: #### 2 276-4, 2777-1, 47418-1, 16782-4, 97893-1 ####[facility] LABCLIA [id number] [place] [id number] [place] Anion gap [Moles/Vol] 11 mmol/L Normal 8-15 [facility] Comment on above: Order Comment: Speci men Type: BLOOD SPECIMENOrdering Facility: [facility] Address: [address] [place] [address] Performed By: #### 2 276-4, 2777-1, 36131-1, 30525-0, 90607-0 ####[facility] LABCLIA [id number] [place] [address] [place] AST [Catalytic activity/Vol] 17 U/L Normal 13-35 [facility] Comment on above: Order Comment: Speci men Type: BLOOD SPECIMENOrdering Facility: [facility] Address: [address] [place] [address] Performed By: #### 2 276-4, 2777-1, 53666-2, 88061-8, 62081-6 ####[facility] LABIA [id number] [place] [address] [place] Bilirubin [Mass/Vol] 0.5 mg/dL Normal 0.2-1.3 [facility] Comment on above: Order Comment: Speci men Type: BLOOD SPECIMENOrdering Facility: [facility] Address: [address] [place] [address] Performed By: #### 2 276-4, 2777-1, 91643-5, 10240-8, 25801-3 ####[facility] LABIA [id number] [place] [address] [place] Calcium [Mass/Vol] 8.6 mg/dL Normal 8.5-10.2 [facility] Comment on above: Order Comment: Speci men Type: BLOOD SPECIMENOrdering Facility: [facility] Address: [address] [place] [address] Result Comment: Resu lt rechecked. Performed By: #### 2 276-4, 2777-1, 12683-4, 90397-3, 84248-7 ####[facility] LABCLIA [id number] [address] [address] [place] Chloride [Moles/Vol] 103 mmol/L Normal 98-107 [facility] Comment on above: Order Comment: Speci men Type: BLOOD SPECIMENOrdering Facility: [facility] Address: [address] [place] [address] Performed By: #### 2 276-4, 2777-1, 08925-3, 62000-5, 88632-9 ####[facility] LABIA [id number] [place] [id number] [place] CO2 [Moles/Vol] 26 mmol/L Normal 22-30 [facility] Comment on above: Order Comment: Speci men Type: BLOOD SPECIMENOrdering Facility: [facility] Address: [address] [place] [address] Performed By: #### 2 276-4, 2777-1, 32227-4, 35507-6, 70105-0 ####[facility] LABIA [id number] [place] [address] [place] Creatinine [Mass/Vol] 0.87 mg/dL Normal 0.58-0.96 [facility] Comment on above: Order Comment: Speci men Type: BLOOD SPECIMENOrdering Facility: [facility] Address: [address] [place] [address] Performed By: #### 2 276-4, 2777-1, 86969-9, 17184-5, 61605-9 ####[facility] LABIA [id number] [place] [address] [place] Creatinine and Glomerular filtration rate.predicted panel (S/P/Bld) 64 mL/min/1.73m??? Normal >=60 [facility] Comment on above: Order Comment: Speci men Type: BLOOD SPECIMENOrdering Facility: [facility] Address: [address] [place] [address] Result Comment: Michael mated Glomerular Filtration Rate [...] GFR. Performed By: #### 2 276-4, 2777-1, 21869-1, 94487-1, 26275-2 ####[facility] LABCLIA [id number] [address] [address] [place] Glucose [Mass/Vol] 99 mg/dL Normal 74-99 [facility] Comment on above: Order Comment: Christopher hurd Type: BLOOD SPECIMENOrdering Facility: [facility] Address: [address] [place] [address] Result Comment: The [place] [employer] Association (ADA) provides guidance for cutoff [...] Standards of Medical Care in Diabetes 2016, [place] [employer]. Diabetes Care. 2016.39(Suppl 1). Performed By: #### 2 276-4, 2777-1, 12463-8, 53031-6, 19922-9 ####[facility] LABCLIA [id number] [place] [id number] [place] Potassium [Moles/Vol] 4.4 mmol/L Normal 3.7-5.1 [facility] Comment on above: Order Comment: Christopher hurd Type: BLOOD SPECIMENOrdering Facility: [facility] Address: [address] [place] [address] Performed By: #### 2 276-4, 2777-1, 90541-1, 52398-7, 59439-7 ####[facility] LABCLIA [id number] [place] [address] [place] Protein [Mass/Vol] 6.1 g/dL Low 6.3-8.0 [facility] Comment on above: Order Comment: Speci men Type: BLOOD SPECIMENOrdering Facility: [facility] Address: [address] [place] [address] Performed By: #### 2 276-4, 2777-1, 99703-1, 63363-0, 04607-0 ####[facility] LABIA [id number] [place] [address] [place] Sodium [Moles/Vol] 140 mmol/L Normal 136-144 [facility] Comment on above: Order Comment: Speci men Type: BLOOD SPECIMENOrdering Facility: [facility] Address: [address] [place] [address] Performed By: #### 2 276-4, 2777-1, 25884-9, 91715-7, 67640-3 ####[facility] LABIA [id number] [place] [address] [place] Urea nitrogen [Mass/Vol] 25 mg/dL High 7-21 [facility] Comment on above: Order Comment: Speci men Type: BLOOD SPECIMENOrdering Facility: [facility] Address: [address] [place], [place] [address] Performed By: #### 2 276-4, 2777-1, 52232-6, 66827-4, 39592-6 ####[facility] LABCLIA [id number] [place] [id number] [place] ECHOon 05-13-2024 Echocardiography Echocardiography Report: Transthoracic Echo [facility] Bedside Date of service: 05/13/2024 11:56:30 AM CASER Ordering physician: DUGLAS KIM Indication: Subarachnoid hemorrhage Technologist: Tristan Dao Interpreting physician: Henrietta Childers MD PATIENT: Name: Jatin SOLOMON : 1935 Age: 89 years Gender: [...] * * * Final * * * [facility] [employer] : [id number] UID Normal [facility] Ferritin SerPl-mCncon 2024 Ferritin [Mass/Vol] 137.0 ng/mL Normal 14.7-205.1 [facility] Comment on above: Order Comment: Speci men Type: BLOOD SPECIMENOrdering Facility: [facility] Address: [address] [place] [address] Performed By: #### 2 276-4, 2777-1, 31713-8, 41913-8, 38616-1 ####[facility] LABCLIA [id number] [place] [id number] [facility] [place] Iron and Iron binding capaci ty panelon 05-13-2024 Iron [Mass/Vol] 57 ug/dL Normal 41-186 [facility] Comment on above: Order Comment: Speci men Type: BLOOD SPECIMENOrdering Facility: [facility] Address: [address] [place] [address] Performed By: #### 2 276-4, 2777-1, 46838-2, 71194-2, 53691-6 ####[facility] LABIA [id number] [address] STATES OF [facility] Iron binding capacity [Mass/Vol] 244 ug/dL Normal 232-386 [facility] Comment on above: Order Comment: Speci men Type: BLOOD SPECIMENOrdering Facility: [facility] Address: [address] [place] [address] Performed By: #### 2 276-4, 2777-1, 45014-3, 72843-0, 02669-9 ####[facility] LABIA [id number] [address] [place] Iron/TIBC [Molar ratio] 23.4 % Normal 15.0-57.0 [facility] Comment on above: Order Comment: Speci men Type: BLOOD SPECIMENOrdering Facility: [facility] Address: [address] [place] [address] Performed By: #### 2 276-4, 2777-1, 09241-3, 99134-2, 66458-1 ####[facility] LABIA [id number] [place] [id number] [place] MRI BRAIN WO/W [...] - Subarachnoid hemorrhage (SAH), follow up - [id number] - - - Subarachnoid hemorrhage (SAH), follow [...] matter findings reflecting sequela of microvascular ischemia. Senior Front End Web Developer: CLINT Transcribe Date/Time: May 13 2024 9:28A Dictated by : SVETLANA SOLOMON MD This examination was interpreted and the report reviewed and electronically signed by: SVETLANA SOLOMON MD on May 13 2024 9:42AM EST [id number] Normal [facility] Magnesium SerPl-mCncon 05-13 Magnesium [Mass/Vol] 2.8 mg/dL High 1.7-2.3 [facility] Comment on above: Order Comment: Speci men Type: BLOOD SPECIMENOrdering Facility: [facility] Address: [address] [place] [address] Result Comment: Resu lt rechecked. Performed By: #### 2 276-4, 2777-1, 79491-7, 26023-4, 62964-4 ####[facility] LABCLIA [id number] [address] OF [place] NURSING PROGon 05-13-2024 NURSING PROG HNO ID: [id number] Author: COLE SHERWOOD RN Service: Radiology Author [...] Intact SIGNATURE: Cole Sherwood RN PATIENT NAME: Jatin Solomon DATE: May 13, 2024 TIME: 10:08 AM Normal [facility] NUTRITIONon 05-13-2024 NUTRITION HNO ID: [id number] Author: SAWYER MEDLEY RD Service: Nutrition Therapy [...] Weight Type: Admit weight Estimated kilocalorie needs: 3127-9055 Calorie Calculation Method: 20-25 kcals/kg Estimated protein [...] minutes SIGNATURE: Sawyer Medley RD PATIENT NAME: Jatin Solomon DATE: May 13, 2024 TIME: 2:37 PM Normal [facility] PT panel Coag (PPP)on 2024 INR Coag (PPP) [Relative time] 1.0 {INR} Normal 0.9-1.3 [facility] Comment on above: Order Comment: Speci men Type: BLOOD SPECIMENOrdering Facility: [facility] Address: [address] [place] [address] Result Comment: Nathalie min K Antagonist (VKA) Therapeutic Range: INR 2 to 3 (Target INR of 2.5) Note: For patients treated with VKA drugs, such as warfarin, the [place] [employer] 2012 Guideline recommends [...] Chest 2012, 141:7S-47S Cam RA, et al. [facility] 2017, 70: 252-289 Performed By: #### 3 4528-0, 89725-1 ####[facility] LABCLIA [id number] [facility] [place] [address] [place] PT Coag (PPP) [Time] 11.3 s Normal 9.7-13.0 [facility] Comment on above: Order Comment: Speci men Type: BLOOD SPECIMENOrdering Facility: [facility] Address: [address] [place] [address] Performed By: #### 3 4528-0, 18556-1 ####[facility] LABCLIA [id number] [place] [address] [place] Phosphate SerPl-mCncon 05-13 Phosphate [Mass/Vol] 4.3 mg/dL Normal 2.7-4.8 [facility] Comment on above: Order Comment: Speci men Type: BLOOD SPECIMENOrdering Facility: [facility] Address: [address] [place] [address] Performed By: #### 2 276-4, 2777-1, 96740-1, 40333-1, 74318-2 ####[facility] LABCLIA [id number] [address] OF [facility] THERAPY NTon 05-13-2024 THERAPY NT HNO ID: [id number] Author: LIANA BLANCO OT/Preet Service: Occupational Therapy Author Type: Occupational Therapist Type: Therapy (PT/OT/Speech/Resp) Filed: 05/13/2024 15:04 Note Text: OCCUPATIONAL THERAPY MISSED VISIT SERVICE DATE: 05/13/2024 SERVICE TIME: 1048 ROOM: [place] [address] Patient not seen due to Patient Not Available. SIGNATURE: VICENTA Snow PATIENT NAME: Jatin Solomon DATE: May 13, 2024 TIME: 3:04 PM Normal [facility] THERAPY NT HNO ID: [id number] Author: MARCELLA TERRY, PT, DPT Service: Physical Therapy Author Type: Physical Therapist Type: Therapy (PT/OT/Speech/Resp) Filed: 05/13/2024 11:15 Note Text: Physical Therapy Treatment Summary SERVICE DATE: 05/13/2024 SERVICE TIME: 1025 to 1103 ROOM: [place] [address] PT 6 Clicks Score: 18 DISCHARGE RECOMMENDATIONS [...] and fatigue in LUE today, able to manager animal WW but requires breaks due to fatigue. [...] Fall Risk CURRENT HOSPITAL COURSE transferred from [place] ED May 11, 2024 with RF cortical [...] DIAGNOSIS Reduced mobility-other TREATMENT INTERVENTIONS Therapeutic Activity (72792), Gait Training (93028) Timed Code Treatment (minutes): 38 Skilled Treatment [...] both sides with cues. 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 Senior Front End Web Developer: [facility] Transcribe Date/Time: May 13 2024 2:23P Dictated by : QUINTIN MORA MD This examination was interpreted and the report reviewed and electronically signed by: QUINTIN MORA MD on May 13 2024 2:41PM EST [id number] CN Normal [facility] XR SHOULDER 2V AP/TRUE AP LT [...] calcifications are noted. IMPRESSION: Posttraumatic degenerative changes. Senior Front End Web Developer: [facility] Transcribe Date/Time: May 13 2024 7:41P Dictated by : PRIYANKA CHAMORRO MD This examination was interpreted and the report reviewed and electronically signed by: PRIYANKA CHAMORRO MD on May 13 2024 7:43PM EST [id number] CN Normal [facility] aPTT PPPon 05-13-2024 aPTT Coag (PPP) [Time] 28.5 s Normal 23.0-32.4 [facility] Comment on above: Order Comment: Speci men Type: BLOOD SPECIMENOrdering Facility: [facility] Address: [address] [place] [address] [place] [address] Performed By: #### 3 4528-0, 85374-7 ####[facility] LABCLIA [id number] [place] [address] [place] Bacteria Bld Culton 05-12-19 25 Bacteria identified Cx Nom (Bld) CULTURE, BLOOD: No growth 5 days Normal [facility] Comment on above: Performed By: #### 6 00-7 ####[facility] LABCLIA [id number] [place] [address] [place] CBC W Auto Differential pane l (Bld)on 05-12-2024 Basophils (Bld) [#/Vol] 0.06 10*3/uL Normal <0.11 [facility] Comment on above: Order Comment: Speci men Type: BLOOD SPECIMENOrdering Facility: [facility] Address: [address] [place] [address] Performed By: #### 5 7021-8 ####[facility] LABCLIA [id number] [place] [address] [place] Basophils/100 WBC (Bld) 0.7 % Normal [facility] Comment on above: Order Comment: Speci men Type: BLOOD SPECIMENOrdering Facility: [facility] Address: [address] [place] [address] Performed By: #### 5 7021-8 ####[facility] LABCLIA [id number] [address] [place] Differential cell count method Nom (Bld) Auto Normal [facility] Comment on above: Order Comment: Speci men Type: BLOOD SPECIMENOrdering Facility: [facility] Address: [address] [place] [address] Performed By: #### 5 7021-8 ####[facility] LABCLIA [id number] [place] [address] [place] Eosinophils (Bld) [#/Vol] 0.03 10*3/uL Normal <0.46 [facility] Comment on above: Order Comment: Speci men Type: BLOOD SPECIMENOrdering Facility: [facility] Address: [address] [place] [address] Performed By: #### 5 7021-8 ####[facility] LABCLIA [id number] [place] [address] [place] Eosinophils/100 WBC (Bld) 0.4 % Normal [facility] Comment on above: Order Comment: Speci men Type: BLOOD SPECIMENOrdering Facility: [facility] Address: [address] [place] [address] Performed By: #### 5 7021-8 ####[facility] LABIA [id number] [place] [address] [place] Erythrocyte distribution width (RBC) [Ratio] 14.0 % Normal 11.5-15.0 [facility] Comment on above: Order Comment: Speci men Type: BLOOD SPECIMENOrdering Facility: [facility] Address: [address] [place] [address] Performed By: #### 5 7021-8 ####[facility] LABIA [id number] [place] [address] [place] Hematocrit (Bld) [Volume fraction] 35.0 % Low 36.0-46.0 [facility] Comment on above: Order Comment: Speci men Type: BLOOD SPECIMENOrdering Facility: [facility] Address: [address] [place] [address] Performed By: #### 5 7021-8 ####[facility] LABIA [id number] [place] [address] [place] Hemoglobin (Bld) [Mass/Vol] 11.4 g/dL Low 11.5-15.5 [facility] Comment on above: Order Comment: Speci men Type: BLOOD SPECIMENOrdering Facility: [facility] Address: [address] [place] [address] Performed By: #### 5 7021-8 ####[facility] LABCLIA [id number] [place] [address] [place] Immature granulocytes (Bld) [#/Vol] 0.04 10*3/uL Normal <0.10 [facility] Comment on above: Order Comment: Speci men Type: BLOOD SPECIMENOrdering Facility: [facility] Address: [address] [place] [address] Performed By: #### 5 7021-8 ####[facility] LABCLIA [id number] [place] [address] [place] Immature granulocytes/100 WBC (Bld) 0.5 % Normal [facility] Comment on above: Order Comment: Speci men Type: BLOOD SPECIMENOrdering Facility: [facility] Address: [address] [place] [address] Performed By: #### 5 7021-8 ####[facility] LABIA [id number] [place] [address] [place] Lymphocytes (Bld) [#/Vol] 1.38 10*3/uL Normal 1.00-4.00 [facility] Comment on above: Order Comment: Speci men Type: BLOOD SPECIMENOrdering Facility: [facility] Address: [address] [place] [address] Performed By: #### 5 7021-8 ####[facility] LABCLIA [id number] [place] [address] [place] Lymphocytes/100 WBC (Bld) 17.2 % Normal [facility] Comment on above: Order Comment: Speci men Type: BLOOD SPECIMENOrdering Facility: [facility] Address: [address] [place] [address] Performed By: #### 5 7021-8 ####[facility] LABCLIA [id number] [place] [address] [place] MCH (RBC) [Entitic mass] 28.8 pg Normal 26.0-34.0 [facility] Comment on above: Order Comment: Speci men Type: BLOOD SPECIMENOrdering Facility: [facility] Address: [address] [place] [address] Performed By: #### 5 7021-8 ####[facility] LABCLIA [id number] [place] [address] [place] MCHC (RBC) [Mass/Vol] 32.6 g/dL Normal 30.5-36.0 [facility] Comment on above: Order Comment: Speci men Type: BLOOD SPECIMENOrdering Facility: [facility] Address: [address] [place] [address] Performed By: #### 5 7021-8 ####[facility] LABCLIA [id number] [place] [address] [place] MCV (RBC) [Entitic vol] 88.4 fL Normal 80.0-100.[address] [facility] Comment on above: Order Comment: Speci men Type: BLOOD SPECIMENOrdering Facility: [facility] Address: [address] [place] [address] Performed By: #### 5 7021-8 ####[facility] LABCLIA [id number] [place] [address] [place] Monocytes (Bld) [#/Vol] 0.73 10*3/uL Normal <0.87 [facility] Comment on above: Order Comment: Speci men Type: BLOOD SPECIMENOrdering Facility: [facility] Address: [address] [place] [address] Performed By: #### 5 7021-8 ####[facility] LABCLIA [id number] [place] [address] [place] Monocytes/100 WBC (Bld) 9.1 % Normal [facility] Comment on above: Order Comment: Speci men Type: BLOOD SPECIMENOrdering Facility: [facility] Address: [address] [place], [place] [address] Performed By: #### 5 7021-8 ####[facility] LABCLIA [id number] [place] [address] [place] Neutrophils (Bld) [#/Vol] 5.78 10*3/uL Normal 1.45-7.50 [facility] Comment on above: Order Comment: Speci men Type: BLOOD SPECIMENOrdering Facility: [facility] Address: [address] [place] [address] Performed By: #### 5 7021-8 ####[facility] LABCLIA [id number] [place] [address] [place] Neutrophils/100 WBC (Bld) 72.1 % Normal [facility] Comment on above: Order Comment: Speci men Type: BLOOD SPECIMENOrdering Facility: [facility] Address: [address] [place] [address] Performed By: #### 5 7021-8 ####[facility] LABCLIA [id number] [place] [address] [place] Nucleated RBC (Bld) [#/Vol] 10*3/uL Normal <0.01 [facility] Comment on above: Order Comment: Speci men Type: BLOOD SPECIMENOrdering Facility: [facility] Address: [address] [place] [address] Performed By: #### 5 7021-8 ####[facility] LABCLIA [id number] [place] [address] [place] Nucleated RBC/100 WBC (Bld) [Ratio] 0.0 /100 WBC Normal [facility] Comment on above: Order Comment: Speci men Type: BLOOD SPECIMENOrdering Facility: [facility] Address: [address] [place] [address] Performed By: #### 5 7021-8 ####[facility] LABCLIA [id number] [place] [address] [place] Platelet mean volume (Bld) [Entitic vol] 9.3 fL Normal 9.0-12.7 [facility] Comment on above: Order Comment: Speci men Type: BLOOD SPECIMENOrdering Facility: [facility] Address: [address] [place] [address] Performed By: #### 5 7021-8 ####[facility] LABCLIA [id number] [place] [address] [place] Platelets (Bld) [#/Vol] 324 10*3/uL Normal 150-400 [facility] Comment on above: Order Comment: Speci men Type: BLOOD SPECIMENOrdering Facility: [facility] Address: [address] [place] [address] Result Comment: No c lot detected. Performed By: #### 5 7021-8 ####[facility] LABCLIA [id number] [place] [address] [place] RBC (Bld) [#/Vol] 3.96 10*6/uL Normal 3.90-5.20 [facility] Comment on above: Order Comment: Speci men Type: BLOOD SPECIMENOrdering Facility: [facility] Address: [address] [place] [address] Performed By: #### 5 7021-8 ####[facility] LABIA [id number] [place] [address] [place] WBC (Bld) [#/Vol] 8.02 10*3/uL Normal 3.70-11.00 [facility] Comment on above: Order Comment: Speci men Type: BLOOD SPECIMENOrdering Facility: [facility] Address: [address] [place] [address] Performed By: #### 5 7021-8 ####[facility] LABCLIA [id number] [place] [address] [place] BRAIN WO IVCONon 05-12-19 CT BRAIN WO IVCON * * *Final Report* * * * * * SEE BOTTOM OF REPORT FOR ADDENDED TEXT * * * DATE OF EXAM: May 12 2024 4:54AM [facility] [id number] - CT BRAIN WO IVCON / [...] edema that would suggest a parenchymal component. Senior Front End Web Developer: [employer] Transcribe Date/Time: May 12 2024 5:46A Dictated by : JOSE LÓPEZ MD This examination was interpreted and the report reviewed and electronically signed by: JOSE LÓPEZ MD on May 12 2024 5:26AM EST This document has been addended by: JOSE LÓPEZ MD on May 12 2024 5:48AM EST [id number] CN Normal [facility] PT panel Coag (PPP)on 2024 INR Coag (PPP) [Relative time] 1.1 {INR} Normal 0.9-1.3 [facility] Comment on above: Order Comment: Specsteve hurd Type: BLOOD SPECIMENOrdering Facility: [facility] Address: [address] [place] [address] Result Comment: Nathalie min K Antagonist (VKA) Therapeutic Range: INR 2 to 3 (Target INR of 2.5) Note: For patients treated with VKA drugs, such as warfarin, the [place] [employer] 2012 Guideline recommends [...] Chest 2012, 141:7S-47S Cam RA, et al. [facility] 2017, 70: 252-289 Performed By: #### 3 4528-0, 95727-4 ####[facility] LABIA [id number] [place] [id number] [place] PT Coag (PPP) [Time] 11.7 s Normal 9.7-13.0 [facility] Comment on above: Order Comment: Christopher hurd Type: BLOOD SPECIMENOrdering Facility: [facility] Address: [address] [place] [address] Performed By: #### 3 4528-0, 92300-8 ####[facility] LABIA [id number] [address] [place] THERAPY NTon 05-12-2024 THERAPY NT HNO ID: [id number] Author: MARCELLA TERRY, PT, DPT Service: Physical Therapy Author Type: Physical Therapist Type: Therapy (PT/OT/Speech/Resp) Filed: 05/12/2024 13:36 Note Text: Physical Therapy Evaluation Summary SERVICE DATE: 05/12/2024 SERVICE TIME: 1244 to 1324 ROOM: [place] [address] PT 6 Clicks Score: 19 DISCHARGE RECOMMENDATIONS [...] Fall Risk CURRENT HOSPITAL COURSE transferred from [place] ED May 11, 2024 with RF cortical [...] Reduced mobility-other TREATMENT INTERVENTIONS Evaluation, Therapeutic Activity (09859) Timed Code Treatment (minutes): 25 Skilled Treatment [...] SIGNATURE: Marcella Terry PT, DPT PATIENT NAME: Jatin Solomon DATE: May 12, 2024 TIME: 1:36 PM Normal [facility] aPTT PPPon 05-12-2024 aPTT Coag (PPP) [Time] 21.2 s Low 23.0-32.4 [facility] Comment on above: Order Comment: Speci men Type: BLOOD SPECIMENOrdering Facility: [facility] Address: [address] [place] [address] Performed By: #### 3 4528-0, 56290-1 ####[facility] LABCLIA [id number] [place] [address] [place] 12 Lead EKGon 05-11-2024 12 Lead EKG Normal [facility] Absolute neutrophil countOrd ered By: Tylor Hendrickson on 05-11-2024 Absolute neutrophil count 5.5 X10^3/uL 2.0-7.[address] [facility] Basic Metabolic Profile (BMP )on 05-11-2024 BUN/CRE 31.2 RATIO High 10-[address] [facility] Comment on above: Order Comment: 'TROP ' Serial specimen #1, #2 or #3: 1 Performed By: #### L 100.0100, L500.2500, L501.4020, L300.3900 ####[facility] [address] [place] [place], [address] CA,Total 9.4 mg/dL Normal 8.5-10.[address] [facility] Comment on above: Order Comment: 'TROP ' Serial specimen #1, #2 or #3: 1 Performed By: #### L 100.0100, L500.2500, L501.4020, L300.3900 ####[facility] [address] [place], [address] Chloride [Moles/Vol] 100 mmol/L Normal 98-107 [facility] Comment on above: Order Comment: 'TROP ' Serial specimen #1, #2 or #3: 1 Performed By: #### L 100.0100, L500.2500, L501.4020, L300.3900 ####[facility] [address] [place] [place], [address] CO2 [Moles/Vol] 29.0 mmol/L Normal 21.0-32.[address] [facility] Comment on above: Order Comment: 'TROP ' Serial specimen #1, #2 or #3: 1 Performed By: #### L 100.0100, L500.2500, L501.4020, L300.3900 ####[facility] [address] [place], [address] Creatinine [Mass/Vol] 0.96 mg/dL Normal 0.55-1.02 [facility] Comment on above: Order Comment: 'TROP ' Serial specimen #1, #2 or #3: 1 Result Comment: The validity of the calculated GFR GFRAA in patients over70 years has not been determined. Clinical correlation isessential. Performed By: #### L 100.0100, L500.2500, L501.4020, L300.3900 ####[facility] [address] [place], [address] ECRCL 37.64 ml/min Normal [facility] Comment on above: Order Comment: 'TROP ' Serial specimen #1, #2 or #3: 1 Performed By: #### L 100.0100, L500.2500, L501.4020, L300.3900 ####[facility] [address] [place], [address] EST GFR - AA 70 mL/min Normal >[address] [facility] Comment on above: Order Comment: 'TROP ' Serial specimen #1, #2 or #3: 1 Result Comment: Afri can [place] GFR Calc Performed By: #### L 100.0100, L500.2500, L501.4020, L300.3900 ####[facility] [address] [place] [place], [address] GAP 7 Normal 5-[address] [facility] Comment on above: Order Comment: 'TROP ' Serial specimen #1, #2 or #3: 1 Performed By: #### L 100.0100, L500.2500, L501.4020, L300.3900 ####[facility] [address] [place], [address] GFR/1.73 sq M.predicted among non-blacks MDRD (S/P/Bld) [Vol rate/Area] 58 mL/min/{1.73_m2} Low >[address] [facility] Comment on above: Order Comment: 'TROP ' Serial specimen #1, #2 or #3: 1 Result Comment: Non- GFR Calc Performed By: #### L 100.0100, L500.2500, L501.4020, L300.3900 ####[facility] [address] [place] [place], [address] Glucose [Mass/Vol] 124 mg/dL High 74-106 [facility] Comment on above: Order Comment: 'TROP ' Serial specimen #1, #2 or #3: 1 Result Comment: Fast ing Glucose result from 100 to 125 mg/dLsuggests IMPAIRED HOMEOSTASIS per A.D.A. criteria. Performed By: #### L 100.0100, L500.2500, L501.4020, L300.3900 ####[facility] [address] [place], [address] Potassium [Moles/Vol] 4.2 mmol/L Normal 3.5-5.1 [facility] Comment on above: Order Comment: 'TROP ' Serial specimen #1, #2 or #3: 1 Performed By: #### L 100.0100, L500.2500, L501.4020, L300.3900 ####[facility] [address] [place], [address] Sodium [Moles/Vol] 136 mmol/L Normal 136-145 [facility] Comment on above: Order Comment: 'TROP ' Serial specimen #1, #2 or #3: 1 Performed By: #### L 100.0100, L500.2500, L501.4020, L300.3900 ####[facility] [address] [place], [address] Urea nitrogen [Mass/Vol] 30 mg/dL High 7-[address] [facility] Comment on above: Order Comment: 'TROP ' Serial specimen #1, #2 or #3: 1 Performed By: #### L 100.0100, L500.2500, L501.4020, L300.3900 ####[facility] [address] [place], [place], [address] Basophil percentageOrdered B y: Tylor Burdickpete on 05-11-2024 Basophil percentage 0.9 % 0-1 [facility] Bedside Glucoseon 05-11-2024 FINGERSTICK GLU 113 mg/dL High 74-[address] [facility] Comment on above: Result Comment: ANGELICA DWYER OF PATIENT CARE PER NURSING PROTOCOL Performed By: #### L 501.080 ####[facility] [address] [facility] [place], [place], [address] Blood urea nitrogen (BUN)/cr eatinine ratioOrdered By: Tylor Hendrickson on 05-11-2024 Blood urea nitrogen (BUN)/creatinine ratio 31.2 RATIO High 10-[address] [facility] Brain/Head without Contrasto n 05-11-2024 Brain/Head without Contrast Normal [facility] CBC W Auto Differential pane l (Bld)on 05-11-2024 Basophils (Bld) [#/Vol] 0.07 10*3/uL Normal <0.11 [facility] Comment on above: Order Comment: Speci men Type: BLOOD SPECIMENOrdering Facility: [facility] Address: [address] [place] [address] Performed By: #### 5 7021-8 ####[facility] LABCLIA [id number] [place] [address] [place] Basophils/100 WBC (Bld) 0.8 % Normal [facility] Comment on above: Order Comment: Speci men Type: BLOOD SPECIMENOrdering Facility: [facility] Address: [address] [place] [address] Performed By: #### 5 7021-8 ####[facility] LABCLIA [id number] [place] [address] [place] Differential cell count method Nom (Bld) Auto Normal [facility] Comment on above: Order Comment: Speci men Type: BLOOD SPECIMENOrdering Facility: [facility] Address: [address] [place] [address] Performed By: #### 5 7021-8 ####[facility] LABCLIA [id number] [place] [address] [place] Eosinophils (Bld) [#/Vol] 0.13 10*3/uL Normal <0.46 [facility] Comment on above: Order Comment: Speci men Type: BLOOD SPECIMENOrdering Facility: [facility] Address: [address] [place] [address] Performed By: #### 5 7021-8 ####[facility] LABCLIA [id number] [place] [address] [place] Eosinophils/100 WBC (Bld) 1.4 % Normal [facility] Comment on above: Order Comment: Speci men Type: BLOOD SPECIMENOrdering Facility: [facility] Address: [address] [place] [address] Performed By: #### 5 7021-8 ####[facility] LABCLIA [id number] [place] [address] [place] Erythrocyte distribution width (RBC) [Ratio] 14.0 % Normal 11.5-15.0 [facility] Comment on above: Order Comment: Speci men Type: BLOOD SPECIMENOrdering Facility: [facility] Address: [address] [place] [address] Performed By: #### 5 7021-8 ####[facility] LABCLIA [id number] [place] [address] [place] Hematocrit (Bld) [Volume fraction] 37.9 % Normal 36.0-46.0 [facility] Comment on above: Order Comment: Speci men Type: BLOOD SPECIMENOrdering Facility: [facility] Address: [address] [place] [address] Performed By: #### 5 7021-8 ####[facility] LABCLIA [id number] [place] [address] [place] Hemoglobin (Bld) [Mass/Vol] 12.3 g/dL Normal 11.5-15.5 [facility] Comment on above: Order Comment: Speci men Type: BLOOD SPECIMENOrdering Facility: [facility] Address: [address] [place] [address] Performed By: #### 5 7021-8 ####[facility] LABCLIA [id number] [place] [address] [place] Immature granulocytes (Bld) [#/Vol] 0.09 10*3/uL Normal <0.10 [facility] Comment on above: Order Comment: Speci men Type: BLOOD SPECIMENOrdering Facility: [facility] Address: [address] [place] [address] Performed By: #### 5 7021-8 ####[facility] LABIA [id number] [place] [address] [place] Immature granulocytes/100 WBC (Bld) 1.0 % Normal [facility] Comment on above: Order Comment: Speci men Type: BLOOD SPECIMENOrdering Facility: [facility] Address: [address] [place] [address] Performed By: #### 5 7021-8 ####[facility] LABCLIA [id number] [place] [address] [place] Lymphocytes (Bld) [#/Vol] 1.37 10*3/uL Normal 1.00-4.00 [facility] Comment on above: Order Comment: Speci men Type: BLOOD SPECIMENOrdering Facility: [facility] Address: [address] [place] [address] Performed By: #### 5 7021-8 ####[facility] LABIA [id number] [place] [id number] [place] Lymphocytes/100 WBC (Bld) 14.9 % Normal [facility] Comment on above: Order Comment: Speci men Type: BLOOD SPECIMENOrdering Facility: [facility] Address: [address] [place] [address] Performed By: #### 5 7021-8 ####[facility] LABCLIA [id number] [place] [address] [place] MCH (RBC) [Entitic mass] 28.8 pg Normal 26.0-34.0 [facility] Comment on above: Order Comment: Speci men Type: BLOOD SPECIMENOrdering Facility: [facility] Address: [address] [place] [address] Performed By: #### 5 7021-8 ####[facility] LABCLIA [id number] [place] [address] [place] MCHC (RBC) [Mass/Vol] 32.5 g/dL Normal 30.5-36.0 [facility] Comment on above: Order Comment: Speci men Type: BLOOD SPECIMENOrdering Facility: [facility] Address: [address] [place] [address] Performed By: #### 5 7021-8 ####[facility] LABCLIA [id number] [place] [address] [place] MCV (RBC) [Entitic vol] 88.8 fL Normal 80.0-100.0 [facility] Comment on above: Order Comment: Speci men Type: BLOOD SPECIMENOrdering Facility: [facility] Address: [address] [place] [address] Performed By: #### 5 7021-8 ####[facility] LABCLIA [id number] [place] [address] [place] Monocytes (Bld) [#/Vol] 0.95 10*3/uL High <0.87 [facility] Comment on above: Order Comment: Speci men Type: BLOOD SPECIMENOrdering Facility: [facility] Address: [address] [place] [address] Performed By: #### 5 7021-8 ####[facility] LABCLIA [id number] [place] [address] [place] Monocytes/100 WBC (Bld) 10.3 % Normal [facility] Comment on above: Order Comment: Speci men Type: BLOOD SPECIMENOrdering Facility: [facility] Address: [address] [place] [address] Performed By: #### 5 7021-8 ####[facility] LABCLIA [id number] [place] [address] [place] Neutrophils (Bld) [#/Vol] 6.59 10*3/uL Normal 1.45-7.50 [facility] Comment on above: Order Comment: Speci men Type: BLOOD SPECIMENOrdering Facility: [facility] Address: [address] [place] [address] Performed By: #### 5 7021-8 ####[facility] LABCLIA [id number] [place] [address] [place] Neutrophils/100 WBC (Bld) 71.6 % Normal [facility] Comment on above: Order Comment: Speci men Type: BLOOD SPECIMENOrdering Facility: [facility] Address: [address] [place] [address] Performed By: #### 5 7021-8 ####[facility] LABCLIA [id number] [place] [address] [place] Nucleated RBC (Bld) [#/Vol] 10*3/uL Normal <0.01 [facility] Comment on above: Order Comment: Speci men Type: BLOOD SPECIMENOrdering Facility: [facility] Address: [address] [place] [address] Performed By: #### 5 7021-8 ####[facility] LABCLIA [id number] [place] [address] [place] Nucleated RBC/100 WBC (Bld) [Ratio] 0.0 /100 WBC Normal [facility] Comment on above: Order Comment: Speci men Type: BLOOD SPECIMENOrdering Facility: [facility] Address: [address] [place] [address] Performed By: #### 5 7021-8 ####[facility] LABCLIA [id number] [place] [address] [place] Platelet mean volume (Bld) [Entitic vol] 9.3 fL Normal 9.0-12.7 [facility] Comment on above: Order Comment: Speci men Type: BLOOD SPECIMENOrdering Facility: [facility] Address: [address] [place] [address] Performed By: #### 5 7021-8 ####[facility] LABCLIA [id number] [place] [address] [place] Platelets (Bld) [#/Vol] 340 10*3/uL Normal 150-400 [facility] Comment on above: Order Comment: Speci men Type: BLOOD SPECIMENOrdering Facility: [facility] Address: [address] [place] [address] Performed By: #### 5 7021-8 ####[facility] LABIA [id number] [place] [address] [place] RBC (Bld) [#/Vol] 4.27 10*6/uL Normal 3.90-5.20 [facility] Comment on above: Order Comment: Speci men Type: BLOOD SPECIMENOrdering Facility: [facility] Address: [address] [place] [address] Performed By: #### 5 7021-8 ####[facility] LABCLIA [id number] [place] [address] [place] WBC (Bld) [#/Vol] 9.20 10*3/uL Normal 3.70-11.00 [facility] Comment on above: Order Comment: Speci men Type: BLOOD SPECIMENOrdering Facility: [facility] Address: [address] [place] [address] Performed By: #### 5 7021-8 ####[facility] LABCLIA [id number] [address] [id number] [address] [place] CBC W/Diff, Automatedon 12-3 Absolute Lymph 1.44 X10 3/uL Normal 0.83-4.[address] [facility] Comment on above: Performed By: #### L 100.0100, L500.2500, L501.4020, L300.3900 ####[facility] [address] [place] [place], [address] Absolute Neut 5.5 X10 3/uL Normal 2.0-7.[address] [facility] Comment on above: Performed By: #### L 100.0100, L500.2500, L501.4020, L300.3900 ####[facility] [address] [place], [address] Basophils/100 WBC (Bld) 0.9 % Normal 0-1 [facility] Comment on above: Performed By: #### L 100.0100, L500.2500, L501.4020, L300.3900 ####[facility] [address] [place], [address] Eosinophils/100 WBC (Bld) 1.4 % Normal 0-[address] [facility] Comment on above: Performed By: #### L 100.0100, L500.2500, L501.4020, L300.3900 ####[facility] [address] [place], [address] Erythrocyte distribution width (RBC) [Ratio] 14.2 % Normal 11.6-14.[address] [facility] Comment on above: Performed By: #### L 100.0100, L500.2500, L501.4020, L300.3900 ####[facility] [address] [place], [address] Hematocrit (Bld) [Volume fraction] 38.6 % Normal 37-[address] [facility] Comment on above: Performed By: #### L 100.0100, L500.2500, L501.4020, L300.3900 ####[facility] [address] [place], [address] Hemoglobin (Bld) [Mass/Vol] 12.2 g/dL Normal 12.0-15.[address] [facility] Comment on above: Performed By: #### L 100.0100, L500.2500, L501.4020, L300.3900 ####[facility] [address] [place] [place], [address] IG% 0.600 Normal 0.0-0.[address] [facility] Comment on above: Result Comment: IG% - Immature Granulocytes (promyelocytes, myelocytes andmetamyelocytes) > 1% indicates that a LEFT SHIFT is Present. Performed By: #### L 100.0100, L500.2500, L501.4020, L300.3900 ####[facility] [address] [place] [place], [address] Lymphocytes/100 WBC (Bld) 18.4 % Low 19-[address] [facility] Comment on above: Performed By: #### L 100.0100, L500.2500, L501.4020, L300.3900 ####[facility] [address] [place], [address] MCH (RBC) [Entitic mass] 28.6 pg Normal 27.0-32.[address] [facility] Comment on above: Performed By: #### L 100.0100, L500.2500, L501.4020, L300.3900 ####[facility] [address] [place], [address] MCHC (RBC) [Mass/Vol] 31.6 g/dL Low 32-36 [facility] Comment on above: Performed By: #### L 100.0100, L500.2500, L501.4020, L300.3900 ####[facility] [address] [place], [address] MCV (RBC) [Entitic vol] 90.4 fL Normal 81-99 [facility] Comment on above: Performed By: #### L 100.0100, L500.2500, L501.4020, L300.3900 ####[facility] [address] [place], [address] Monocytes/100 WBC (Bld) 8.3 % Normal 0-10 [facility] Comment on above: Performed By: #### L 100.0100, L500.2500, L501.4020, L300.3900 ####[facility] [address] [place], [address] Neutrophils/100 WBC (Bld) 70.4 % High 47-[address] [facility] Comment on above: Performed By: #### L 100.0100, L500.2500, L501.4020, L300.3900 ####[facility] [address] [place], [address] Nucleated RBC (Bld) [#/Vol] 0 10*3/uL Normal 0-[address] [facility] Comment on above: Performed By: #### L 100.0100, L500.2500, L501.4020, L300.3900 ####[facility] [address] [place], [address] Platelet mean volume (Bld) [Entitic vol] 9.4 fL Normal 6.2-12.[address] [facility] Comment on above: Performed By: #### L 100.0100, L500.2500, L501.4020, L300.3900 ####[facility] [address] [place], [address] Platelets (Bld) [#/Vol] 365 10*3/uL Normal 150-[address] [facility] Comment on above: Performed By: #### L 100.0100, L500.2500, L501.4020, L300.3900 ####[facility] [address] [place], [address] RBC (Bld) [#/Vol] 4.27 10*6/uL Normal 4.2-5.4 [facility] Comment on above: Performed By: #### L 100.0100, L500.2500, L501.4020, L300.3900 ####[facility] [address] [place], [address] RDW SD 47.3 fl High 35.1-43.[address] [facility] Comment on above: Performed By: #### L 100.0100, L500.2500, L501.4020, L300.3900 ####[facility] [address] [place], [address] WBC (Bld) [#/Vol] 7.8 10*3/uL Normal 4.4-11.0 [facility] Comment on above: Performed By: #### L 100.0100, L500.2500, L501.4020, L300.3900 ####[facility] [address] [place], [address] CK SerPl-cCncon 05-11-2024 CK [Catalytic activity/Vol] 90 U/L Normal 42-196 [facility] Comment on above: Order Comment: Speci men Type: BLOOD SPECIMENOrdering Facility: [facility] Address: [address] [place] [address] Performed By: #### 2 777-1, 35405-5, 2157-6, TSHRF, HSTNT, 48800-0 ####[facility] LABCLIA [id number] [address] [address] [place] CNCRITCRon 05-11-2024 CNCRITCR Critical Care Transport (CCT) Jatin SOLOMON ([id number]) 1935 F Date Time Provider Department 05/11/24 NORMA MOON [facility] During your visit today, we recorded the following information about you: Norma Moon APRN.CNP 05/11/2024 8:04 PM Signed CRITICAL CARE TRANSPORT MEDICAL CONTROL CONSULT NOTE Patient Name: Jatin Solomon Service Date: May 11, 2024 Referring Facility: [facility] Accepting Facility: [facility] REASON FOR TRANSPORT: higher level neurosurgical care REASON FOR CONSULT: BP management CCT MEDICAL CONTROL CONSULT SUMMARY: History, physical exam findings, and available background patient information from CCT Transport Nurse were reviewed at the time of consult. Pertinent additional information was reviewed as follows: CCT transport request log In brief, Jatin Solomon is a 89 year old female with a history, known at time of consult, significant for afib on coumadin who presented to [facility] for evaluation of left arm weakness. CT [...] read back via telephone with CCT Transport in flight crew member, David Campos RN SIGNATURE: Norma Moon APRN.CNP Acute Care Nurse Practitioner Critical Care Transport Allergies As of Date: 05/11/2024 Noted Allergy Reaction SUTURES 11/26/2012 9 - Itching ACTONEL (RISEDRONATE SODIUM) 11/06/2007 8 - GI Upset Comments: States had GI bleed ADHES. [id number] UM 12/09/2007 BEETS 05/28/2011 2 - Rash [...] Assessed Reason for Visit: Critical Care Transport [5308] Prescriptions as of 05/16/2024 - atenolol (TENORMIN) [...] 02/19/2012 Insomnia, unspecified [G47.00] 02/11/2007 02/19/2012 NIGHTMARE [BDM3033] 02/11/2007 04/12/2014 LUMBAR RADICULITIS [SUL4912] 02/11/2007 BACKACHE NOS [M54.9] 02/17/2007 MITRAL INSUFFICIENCY [...] Hypertensive emergency [I16.1] 05/11/2024 Current use of termite control representative anticoagulation [Z79.0*05/11/2024 Restless leg syndrome [G25.81] 05/11/2024 Prescriptions ordered this encounter Dis (more content not included)... Normal [facility] CTA HEAD WO/W IVCONon 2023 CTA HEAD WO/W IVCON * * *Final Report* * * DATE OF EXAM: May 11 2024 8:45PM [facility] 0023 - CTA HEAD WO/W IVCON / [...] between software and imaging review: Not Applicable. Senior Front End Web Developer: CLINT Transcribe Date/Time: May 11 2024 8:50P Dictated by : LAMONTE MCDONALD MD This examination was interpreted and the report reviewed and electronically signed by: LAMONTE MCDONALD MD on May 11 2024 9:02PM EST [id number] Normal [facility] CTA NECK W IVCONon CTA NECK W IVCON * * *Final Report* * * DATE OF EXAM: May 11 2024 8:45PM [facility] 0024 - CTA NECK W IVCON / [...] between software and imaging review: Not Applicable. Senior Front End Web Developer: CLINT Transcribe Date/Time: May 11 2024 8:50P Dictated by : LAMONTE MCDONALD MD This examination was interpreted and the report reviewed and electronically signed by: LAMONTE MCDONALD MD on May 11 2024 9:02PM EST [id number] Normal [facility] Calcium [Mass/Vol]Ordered By : Tylor Hendrickson on 05-11-2024 Serum or plasma calcium measurement (mass/volume) 9.4 mg/dL 8.5-10.[address] [facility] Calcium.ionized [Moles/Vol]o n 05-11-2024 Calcium.ionized (Bld) [Mass/Vol] 1.17 mmol/L Normal 1.08-1.30 [facility] Comment on above: Order Comment: Speci men Type: BLOOD SPECIMENOrdering Facility: [facility] Address: [address] [place] [address] Performed By: #### 1 995-0 ####[facility] [id number] [place] [address] [place] Calcium.ionized adjusted to pH 7.4 (Bld) [Moles/Vol] 1.19 mmol/L Normal 1.08-1.30 [facility] Comment on above: Order Comment: Speci men Type: BLOOD SPECIMENOrdering Facility: [facility] Address: [address] [place] [address] Performed By: #### 1 995-0 ####[facility] [id number] [place] [address] [place] Carbon dioxide measurementOr dered By: Tylor Hendrickson on 05-11-2024 Carbon dioxide measurement 29.0 mmol/L 21.0-32.[address] [facility] Chloride measurementOrdered By: Tylor Hendrickson on 12-31-2024 Chloride measurement 100 mmol/L 98-107 [facility] Clarity (U)Ordered By: Tylor Hendrickson on 05-11-2024 Urine clarity Clear Clear [facility] Color (U)Ordered By: Tylor suárez on 05-11-2024 Urine color determination Straw Yellow [facility] Comprehensive metabolic 2000 panelon 05-11-2024 Albumin [Mass/Vol] 2.8 g/dL Low 3.9-4.9 [facility] Comment on above: Order Comment: Speci men Type: BLOOD SPECIMENOrdering Facility: [facility] Address: [address] [place] [address] Result Comment: Resu lt rechecked. Performed By: #### 2 777-1, 82693-3, 2156-10, TSHRF, HSTNT, ####[facility] LABCLIA [id number] [place] [address] [place] ALP [Catalytic activity/Vol] 51 U/L Normal 34-123 [facility] Comment on above: Order Comment: Speci men Type: BLOOD SPECIMENOrdering Facility: [facility] Address: [address] [place] [address] Performed By: #### 2 777-1, 22892-9, 2156-10, TSHRF, HSTNT, ####[facility] LABCLIA [id number] [place] [id number] [place] ALT [Catalytic activity/Vol] 7 U/L Normal 7-38 [facility] Comment on above: Order Comment: Speci men Type: BLOOD SPECIMENOrdering Facility: [facility] Address: [address] [place] [address] Performed By: #### 2 777-1, 24355-5, 2156-10, TSHRF, HSTNT, ####[facility] LABCLIA [id number] [address] [address] [place] Anion gap [Moles/Vol] 12 mmol/L Normal 8-15 [facility] Comment on above: Order Comment: Speci men Type: BLOOD SPECIMENOrdering Facility: [facility] Address: [address] [place] [address] Performed By: #### 2 777-1, 80752-4, 2156-10, TSHRF, HSTNT, ####[facility] LABCLIA [id number] [place] [address] [place] AST [Catalytic activity/Vol] 15 U/L Normal 13-35 [facility] Comment on above: Order Comment: Speci men Type: BLOOD SPECIMENOrdering Facility: [facility] Address: [address] [place] [address] Performed By: #### 2 777-1, 33393-1, 2156-10, TSHRF, HSTNT, ####[facility] LABCLIA [id number] [place] [address] [place] Bilirubin [Mass/Vol] 0.4 mg/dL Normal 0.2-1.3 [facility] Comment on above: Order Comment: Speci men Type: BLOOD SPECIMENOrdering Facility: [facility] Address: [address] [place] [address] Performed By: #### 2 777-1, 27907-7, 2156-10, TSHRF, HSTNT, ####[facility] LABCLIA [id number] [place] [id number] [place] Calcium [Mass/Vol] 7.0 mg/dL Low 8.5-10.2 [facility] Comment on above: Order Comment: Speci men Type: BLOOD SPECIMENOrdering Facility: [facility] Address: [address] [place] [address] Result Comment: Resu lt rechecked. Performed By: #### 2 777-1, 45197-8, 6, TSHRF, HSTNT, ####[facility] LABCLIA [id number] [place] [id number] [place] Chloride [Moles/Vol] 107 mmol/L Normal 98-107 [facility] Comment on above: Order Comment: Speci men Type: BLOOD SPECIMENOrdering Facility: [facility] Address: [address] [place] [address] Performed By: #### 2 777-1, 25826-4, 6, TSHRF, HSTNT, ####[facility] LABIA [id number] [place] [id number] [place] CO2 [Moles/Vol] 20 mmol/L Low 22-30 [facility] Comment on above: Order Comment: Speci men Type: BLOOD SPECIMENOrdering Facility: [facility] Address: [address] [place] [address] Performed By: #### 2 777-1, 01653-0, 2156-10, TSHRF, HSTNT, ####[facility] LABIA [id number] [place] [id number] [place] Creatinine [Mass/Vol] 0.62 mg/dL Normal 0.58-0.96 [facility] Comment on above: Order Comment: Speci men Type: BLOOD SPECIMENOrdering Facility: [facility] Address: [address] [place] [address] Performed By: #### 2 777-1, 33730-3, 2156-10, TSHRF, HSTNT, ####[facility] LABIA [id number] [place] [id number] [place] Creatinine and Glomerular filtration rate.predicted panel (S/P/Bld) 86 mL/min/1.73m??? Normal >=60 [facility] Comment on above: Order Comment: Speci men Type: BLOOD SPECIMENOrdering Facility: [facility] Address: [address] [place] [address] Result Comment: Michael mated Glomerular Filtration Rate [...] actual GFR. Performed By: #### 2 777-1, 69166-4, 2156-10, TSHRF, HSTNT, ####[facility] LABCLIA [id number] [address] [address] [place] Glucose [Mass/Vol] 109 mg/dL High 74-99 [facility] Comment on above: Order Comment: Speci men Type: BLOOD SPECIMENOrdering Facility: [facility] Address: [address] [place] [address] Result Comment: [employer] [place] [employer] (ADA) provides guidance for cutoff [...] Standards of Medical Care in Diabetes 2016, [place] [employer]. Diabetes Care. 2016.39(Suppl 1). Performed By: #### 2 777-1, 00807-0, 2156-10, TSHRF, HSTNT, ####[facility] LABCLIA [id number] [address] [address] [place] Potassium [Moles/Vol] 3.3 mmol/L Low 3.7-5.1 [facility] Comment on above: Order Comment: Speci men Type: BLOOD SPECIMENOrdering Facility: [facility] Address: [address] [place] [address] Performed By: #### 2 777-1, 34446-1, 6, TSHRF, HSTNT, ####[facility] LABCLIA [id number] [address] [address] [place] Protein [Mass/Vol] 5.2 g/dL Low 6.3-8.0 [facility] Comment on above: Order Comment: Speci men Type: BLOOD SPECIMENOrdering Facility: [facility] Address: [address] [place] [address] Result Comment: Resu lt rechecked. Performed By: #### 2 777-1, 12201-2, 2156-10, TSHRF, HSTNT, ####[facility] LABCLIA [id number] [place] [id number] [place] Sodium [Moles/Vol] 139 mmol/L Normal 136-144 [facility] Comment on above: Order Comment: Speci men Type: BLOOD SPECIMENOrdering Facility: [facility] Address: [address] [place] [address] Performed By: #### 2 777-1, 71969-7, 2156-10, TSHRF, HSTNT, ####[facility] LABCLIA [id number] [place] [id number] [place] Urea nitrogen [Mass/Vol] 22 mg/dL High 7-21 [facility] Comment on above: Order Comment: Speci men Type: BLOOD SPECIMENOrdering Facility: [facility] Address: [address] [place] [address] Performed By: #### 2 777-1, 66719-0, 2156-10, TSHRF, HSTNT, ####[facility] LABCLIA [id number] [address] [address] [place] Albumin [Mass/Vol] 4.1 g/dL Normal 3.9-4.9 [facility] Comment on above: Order Comment: Speci men Type: BLOOD SPECIMENOrdering Facility: [facility] Address: [address] [place] [address] Performed By: #### 2 4323-8, 2776-05, ####[facility] LABCLIA [id number] [place] [id number] [place] ALP [Catalytic activity/Vol] 75 U/L Normal 34-123 [facility] Comment on above: Order Comment: Speci men Type: BLOOD SPECIMENOrdering Facility: [facility] Address: [address] [place] [address] Performed By: #### 2 4323-8, 2776-05, ####[facility] LABCLIA [id number] [place] [address] [place] ALT [Catalytic activity/Vol] 9 U/L Normal 7-38 [facility] Comment on above: Order Comment: Speci men Type: BLOOD SPECIMENOrdering Facility: [facility] Address: [address] [place] [address] Performed By: #### 2 4323-8, 2776-05, ####[facility] LABIA [id number] [place] [address] [place] Anion gap [Moles/Vol] 12 mmol/L Normal 8-15 [facility] Comment on above: Order Comment: Speci men Type: BLOOD SPECIMENOrdering Facility: [facility] Address: [address] [place] [id number] Performed By: #### 2 4323-8, 2776-05, ####[facility] LABIA [id number] [place] [address] [place] AST [Catalytic activity/Vol] 19 U/L Normal 13-35 [facility] Comment on above: Order Comment: Speci men Type: BLOOD SPECIMENOrdering Facility: [facility] Address: [address] [place], [place] [address] Performed By: #### 2 4323-8, 2776-05, ####[facility] LABCLIA [id number] [address] [address] [place] Bilirubin [Mass/Vol] 0.5 mg/dL Normal 0.2-1.3 [facility] Comment on above: Order Comment: Speci men Type: BLOOD SPECIMENOrdering Facility: [facility] Address: [address] [place] [address] Performed By: #### 2 4323-8, 2776-05, ####[facility] LABCLIA [id number] [place] [address] [place] Calcium [Mass/Vol] 9.5 mg/dL Normal 8.5-10.2 [facility] Comment on above: Order Comment: Speci men Type: BLOOD SPECIMENOrdering Facility: [facility] Address: [address] [place] [address] Performed By: #### 2 4323-8, 2776-05, ####[facility] LABIA [id number] [place] [address] [place] Chloride [Moles/Vol] 100 mmol/L Normal 98-107 [facility] Comment on above: Order Comment: Speci men Type: BLOOD SPECIMENOrdering Facility: [facility] Address: [address] [place], [place] [address] Performed By: #### 2 4323-8, 2776-05, ####[facility] LABCLIA [id number] [address] [address] [place] CO2 [Moles/Vol] 30 mmol/L Normal 22-30 [facility] Comment on above: Order Comment: Speci men Type: BLOOD SPECIMENOrdering Facility: [facility] Address: [address] [place], [place] [address] Performed By: #### 2 4323-8, 2776-05, ####[facility] LABIA [id number] [address] [address] [place] Creatinine [Mass/Vol] 0.76 mg/dL Normal 0.58-0.96 [facility] Comment on above: Order Comment: Christopher hurd Type: BLOOD SPECIMENOrdering Facility: [facility] Address: [address] [place] [address] Performed By: #### 2 4323-8, 2776-05, ####[facility] LABIA [id number] [place] [address] [place] Creatinine and Glomerular filtration rate.predicted panel (S/P/Bld) 75 mL/min/1.73m??? Normal >=60 [facility] Comment on above: Order Comment: Christopher hurd Type: BLOOD SPECIMENOrdering Facility: [facility] Address: [address] [place] [address] Result Comment: Michael mated Glomerular Filtration Rate [...] GFR. Performed By: #### 2 4323-8, 2776-05, ####[facility] LABIA [id number] [address] [address] [place] Glucose [Mass/Vol] 147 mg/dL High 74-99 [facility] Comment on above: Order Comment: Jeanettei men Type: BLOOD SPECIMENOrdering Facility: [facility] Address: [address] [place] [address] Result Comment: The [place] Diabetes Association (ADA) provides guidance for cutoff [...] Standards of Medical Care in Diabetes 2016, [place] [employer]. Diabetes Care. 2016.39(Suppl 1). Performed By: #### 2 4323-8, 2776-05, ####[facility] LABCLIA [id number] [address] [address] [place] Potassium [Moles/Vol] 3.8 mmol/L Normal 3.7-5.1 [facility] Comment on above: Order Comment: Speci men Type: BLOOD SPECIMENOrdering Facility: [facility] Address: [address] [place] [address] Performed By: #### 2 4323-8, 2776-05, ####[facility] LABCLIA [id number] [place] [address] [place] Protein [Mass/Vol] 7.2 g/dL Normal 6.3-8.0 [facility] Comment on above: Order Comment: Speci men Type: BLOOD SPECIMENOrdering Facility: [facility] Address: [address] [place] [address] Performed By: #### 2 4323-8, 2776-05, ####[facility] LABCLIA [id number] [address] [address] [place] Sodium [Moles/Vol] 142 mmol/L Normal 136-144 [facility] Comment on above: Order Comment: Speci men Type: BLOOD SPECIMENOrdering Facility: [facility] Address: [address] [place] [address] Performed By: #### 2 4323-8, 27711-09, ####[facility] LABCLIA [id number] [place] [address] [place] Urea nitrogen [Mass/Vol] 25 mg/dL High 7-21 [facility] Comment on above: Order Comment: Speci men Type: BLOOD SPECIMENOrdering Facility: [facility] Address: [address] [place] [address] Performed By: #### 2 4323-8, 2777-1, 60824-2 ####[facility] LABCLIA [id number] [place] [address] [place] Creatinine [Mass/Vol]Ordered By: Tylor Hendrickson on 05-11-2024 Serum or plasma creatinine measurement (mass/volume) 0.96 mg/dL 0.55-1.[address] [facility] Emergency Department Summary on 05-11-2024 Emergency Department Summary Normal [facility] Eosinophil percentageOrdered By: Tylor Hendrickson on 05-11-2024 Eosinophil percentage 1.4 % 0-5 [facility] Erythrocyte distribution wid th (RBC) [Ratio]Ordered By: Tylor Hendrickson on 05-11-2024 Erythrocyte distribution width ratio 14.2 % 11.6-14.[address] [facility] Erythrocyte distribution wid th standard deviationOrdered By: Tylor Hendrickson on 05-11-2024 Erythrocyte distribution width standard deviation 47.3 fl High 35.1-43.[address] [facility] Estimated glomerular filtrat ion rate (GFR) AmericanOrdered By: Tylor Hendrickson on 05-11-2024 Estimated glomerular filtration rate (GFR) 70 mL/min >[address] [facility] Estimation of creatinine mary ellen aranceOrdered By: Tylor Hendrickson on 05-11-2024 Estimation of creatinine clearance 37.64 ml/min [facility] Glomerular filtration rate ( GFR) estimationOrdered By: Tylor Hendrickson on 05-11-2024 Glomerular filtration rate (GFR) estimation 58 mL/min Low >[address] [facility] Glucose measurementOrdered B y: Tylor Hendrickson on 05-11-2024 Glucose measurement 124 mg/dL High 74-106 [facility] Glucose measurement at bedsi deOrdered By: Tylor Hendrickson on 12-31-2024 Glucose measurement at bedside 113 mg/dL High 74-[address] [facility] HIGH SENSITIVITY TROPONIN To n 05-11-2024 Troponin T.cardiac High sensitivity method [Mass/Vol] 19 ng/L High <12 [facility] Comment on above: Order Comment: Speci men Type: BLOOD SPECIMENOrdering Facility: [facility] Address: [address] [place] [address] Performed By: #### 2 777-1, 83920-2, 2157-6, TSHRF, HSTNT, 71812-1 ####[facility] LABCLIA [id number] [facility] [place] [address] [place] HISTORY PHYSICALon HISTORY PHYSICAL HNO ID: [id number] Author: DUGLAS KIM MD Service: Neurosurgery Author Type: Resident Type: H&P Filed: 05/15/2024 02:17 Note Text: Attestation signed by Duglas Kim MD at 05/15/2024 2:17 AM Discussed. Duglas Kim MD NEUROSURGERY HISTORY AND PHYSICAL EXAMINATION PLEASE DO NOT REMOVE FROM THE CHART OR MODIFY PRINTED COPY Patient Name: Jatin Solomon CHIEF COMPLAINT: LUE weakness and tingling HPI: 89 year old RHW w/PMH HTN, HLD, pAF on warfarin, NEL, osteoporosis, secondary hypothyroidism transferred from [place] [facility] May 11, 2024 with RF cortical SAH/ICH (1cc). Patient LKW 12 AM when she developed LUE finger tingling [...] PRN phosph (more content not included)... Normal [facility] HISTORY PHYSICAL HNO ID: [id number] Author: CARI WONG MD, PhD Service: Neurology Stroke Author Type: Physician Type: H&P Filed: 05/12/2024 14:45 Note Text: NEURO STROKE HANDP SERVICE DATE: 05/11/2024 SERVICE TIME: 7:28 PM PCP: No primary care provider on file. REASON FOR STROKE EVALUATION: ICH Subjective HPI: Jatin Solomon is a 89 yo F w/ PMH HTN, HLD, pAF on warfarin, NEL on CPAP, osteoporosis, secondary hypothyroidism transferred from [place] [facility] May 11, 2024 for ICH monitoring. [...] GI Upset States had GI bleed Adhes. Cljz-Ysnq-My* Beets Rash raised injection site when allergy [...] , Unknown (more content not included)... Normal [facility] HISTORY PHYSICAL HNO ID: [id number] Author: CLINT BERMUDEZ APRN.PERSONAL DEVELOPMENT EDUCATOR Service: Neurology ICU Author Type: Nurse Practitioner [...] warfarin, NEL, osteoporosis, secondary hypothyroidism transferred from [place] [facility] May 11, 2024 with focus of [...] GI Upset States had GI bleed Adhes. Ijup-Ezcz-Dd* Beets Rash raised injection site when allergy [...] Edema- Yes Peripheral pulses- Present all extremities [facility] STR[facility] AND PREVENTION CHECKLIST DATA: Diagnostic [...] leg syndrome (more content not included)... Normal [facility] Hematocrit Auto (Bld) [Volum e fraction]Ordered By: Tylor Hendrickson on 05-11-2024 Automated blood hematocrit (percentage) 38.6 % 37-[address] [facility] Hemoglobin measurementOrdere d By: Tylor Hendrickson on 05-11-2024 Hemoglobin measurement 12.2 g/dL 12.0-15.0 [facility] Immature granulocytes/100 WB C Auto (Bld)Ordered By: Tylor Hendrickson on 05-11-2024 Automated immature granulocyte percentage 0.600 % 0.0-0.[address] [facility] International normalized rat io (INR) calculationOrdered By: Tylor Hendrickson on 05-11-2024 International normalized ratio (INR) calculation 2.[address] [facility] L501.4020on 05-11-2024 TROPONIN-I HS 13 pg/mL Normal 3.0-54.[address] [facility] Comment on above: Order Comment: 'TROP ' Serial specimen #1, #2 or #3: 1 Result Comment: Newton valdovinos Note: New Test Units and Gender Specific Reference Ranges. For more information see Policy Stat Procedure [place] High Sensitivity Troponin (TNIH) and attachments. Performed By: #### L 100.0100, L500.2500, L501.4020, L300.3900 ####[facility] [address] [place], [place], [id number] Lymphocytes Auto (Unsp spec) [#/Vol]Ordered By: Tylor Hendrickson on 05-11-2024 Absolute lymphocyte count 1.44 X10^3/uL 0.83-4.[address] [facility] Lymphocytes/100 WBC Auto (Un sp spec)Ordered By: Tylor Hendrickson on 05-11-2024 Automated lymphocyte count as percentage of total leukocytes 18.4 % Low 19-[address] [facility] MCV (RBC) [Entitic vol]Order ed By: Tylor Hendrickson on 05-11-2024 MCV (mean corpuscular volume) determination 90.4 fL 81-[address] [facility] Magnesium SerPl-mCncon 05-11 Magnesium [Mass/Vol] 1.7 mg/dL Normal 1.7-2.3 [facility] Comment on above: Order Comment: Speci men Type: BLOOD SPECIMENOrdering Facility: [facility] Address: [address] [place] [address] Performed By: #### 2 777-1, 61634-6, 2157-6, TSHRF, HSTNT, 59759-8 ####[facility] LABCLIA [id number] [address] [address] [place] Magnesium [Mass/Vol] 2.3 mg/dL Normal 1.7-2.3 [facility] Comment on above: Order Comment: Speci men Type: BLOOD SPECIMENOrdering Facility: [facility] Address: [address] [place] [address] Performed By: #### 2 4323-8, 2777-1, 04678-5 ####[facility] LABCLIA [id number] [facility] [id number] [address] [place] [facility] Mean corpuscular hemoglobin (MCH) determinationOrdered By: Tylor Hendrickson on 05-11-2024 Mean corpuscular hemoglobin (MCH) determination 28.6 pg 27.0-32.[address] [facility] Mean corpuscular hemoglobin concentration (MCHC) determinationOrdered By: Tylor Hendrickson on 05-11-2024 Mean corpuscular hemoglobin concentration (MCHC) determination 31.6 g/dL Low 32-[address] [facility] Mean platelet volume determi nationOrdered By: Tylor Hendrickson on 05-11-2024 Mean platelet volume determination 9.4 fl 6.2-12.[address] [facility] Monocyte percentageOrdered B y: Tylor Hendrickson on 05-11-2024 Monocyte percentage 8.3 % 0-10 [facility] Neutrophil percentageOrdered By: Tylor Hendrickson on 05-11-2024 Neutrophil percentage 70.4 % High 47-70 [facility] Nucleated red blood cell per centageOrdered By: Tylor Hendrickson on 05-11-2024 Nucleated red blood cell percentage 0 % 0-[address] [facility] PT panel Coag (PPP)on 2023 INR Coag (PPP) [Relative time] 2.0 {INR} High 0.9-1.3 [facility] Comment on above: Order Comment: Speci men Type: BLOOD SPECIMENOrdering Facility: [facility] Address: [address] [place] [address] Result Comment: Nathalie min K Antagonist (VKA) Therapeutic Range: INR 2 to 3 (Target INR of 2.5) Note: For patients treated with VKA drugs, such as warfarin, the [place] [employer] 2012 Guideline recommends [...] Chest 2012, 141:7S-47S Cam RA, et al. [facility] 2017, 70: 252-289 Performed By: #### 1 4979-9, 36063-2 ####[facility] LABIA [id number] [place] [id number] [place] PT Coag (PPP) [Time] 21.1 s High 9.7-13.0 [facility] Comment on above: Order Comment: Speci men Type: BLOOD SPECIMENOrdering Facility: [facility] Address: [address] [place] [address] Performed By: #### 1 4979-9, 33486-0 ####[facility] [id number] [place] [id number] [place] Partial Thromboplast Timeon 05-11-2024 aPTT Coag (Bld) [Time] 39.7 s High 24.1-36.2 [facility] Comment on above: Order Comment: ERNESTO Vivas PREVIOUS SPECIMEN REJECTED DUE TOQNS. 05/11/24 1312 Performed By: #### L 300.4310, L300.3900 ####[facility] [address] [place], [place], [id number] Phosphate SerPl-ncon 05-11 Phosphate [Mass/Vol] 2.4 mg/dL Low 2.7-4.8 [facility] Comment on above: Order Comment: Christopher hurd Type: BLOOD SPECIMENOrdering Facility: [facility] Address: [address] [place] [address] Performed By: #### 2 777-1, 18239-0, 2157-6, TSHRF, HSTNT, 57539-7 ####[facility] LABCLIA [id number] [address] [address] [place] Phosphate [Mass/Vol] 3.2 mg/dL Normal 2.7-4.8 [facility] Comment on above: Order Comment: Speci men Type: BLOOD SPECIMENOrdering Facility: [facility] Address: [address] [place] [place] [id number] Performed By: #### 2 4323-8, 2777-1, 13142-7 ####[facility] LABCLIA [id number] [place] [address] [place] Platelet countOrdered By: Cari Hendrickson on 05-11-2024 Platelet count 365 K/mm3 150-[address] [facility] Potassium measurementOrdered By: Tylor Hendrickson on 05-11-2024 Potassium measurement 4.2 mmol/L 3.5-5.1 [facility] Prothrombin Time w/INRon INR Coag (PPP) [Relative time] 2.1 {INR} Normal [facility] Comment on above: Order Comment: REDRA W. PREVIOUS SPECIMEN REJECTED DUE TOQNS. 05/11/24 1312 Performed By: #### L 300.4310, L300.3900 ####[facility] [address] [place], [place], [id number] PT Coag (PPP) [Time] 23.7 s High 11.7-14.9 [facility] Comment on above: Order Comment: REDRA W. PREVIOUS SPECIMEN REJECTED DUE TOQNS. 05/11/24 1312 Performed By: #### L 300.4310, L300.3900 ####[facility] [address] [place], [address] INR Normal [facility] Comment on above: Result Comment: This specimen has been REJECTED due to Laboratory criteria:Quanity Not Sufficient.HORR has been notified of need of recollection.05/11/24 1310 Tracie Clapper Performed By: #### L 100.0100, L500.2500, L501.4020, L300.3900 ####[facility] [address] [place], [address] PROTIME Normal 11.7-14.[address] [facility] Comment on above: Result Comment: This specimen has been REJECTED due to Laboratory criteria:Quanity Not Sufficient.HORR has been notified of need of recollection.05/11/24 1310 Tracie Clapper Performed By: #### L 100.0100, L500.2500, L501.4020, L300.3900 ####[facility] [address], [address] Prothrombin timeOrdered By: Tylor Hendrickson on 05-11-2024 Prothrombin time 23.7 SECONDS High 11.7-14.9 [facility] RBC Auto (Bld) [#/Vol]Ordere d By: Tylor Hendrickson on 05-11-2024 Automated blood erythrocyte count 4.27 M/mm3 4.2-5.[address] [facility] STAPHYLOCOCCUS AUREUS AND MR SA SCREEN, PCR, NASALon 05-11-2024 S. aureus and MRSA panel RHYS+probe (Nose) Not detected Normal Not Detected [facility] Comment on above: Order Comment: Speci men Type: SWABOrdering Facility: [facility] Address: [address] [place] [address] Performed By: #### S APCR ####[facility] LABCLIA [id number] [facility] [place], [place] [address] [place] Serum anion gap measurementO rdered By: Tylor Hendrickson on 05-11-2024 Serum anion gap measurement 7 5-[address] [facility] Sodium levelOrdered By: Tylor Hendrickson on 05-11-2024 Sodium level 136 mmol/L 136-[address] [facility] Specific gravity (U) [Rel de nsity]Ordered By: Tylor Hendrickson on 05-11-2024 Urine specific gravity measurement 1.010 1.002-1.[address] [facility] TSH W/REFLEX FT4on TSH Qn 1.170 m[IU]/L Normal 0.270-4.200 [facility] Comment on above: Order Comment: Speci men Type: BLOOD SPECIMENOrdering Facility: [facility] Address: [address] [place] [address] Performed By: #### 2 777-1, 22152-5, 2157-6, TSHRF, HSTNT, 84035-1 ####[facility] LABCLIA [id number] [place] [address] [place] TYPE + SCREENon 05-11-2024 ABO A Normal [facility] Comment on above: Order Comment: Speci men Type: BLOOD SPECIMENOrdering Facility: [facility] Address: [address] [place] [address] Performed By: #### T SCR ####[facility] BLOOD BANKCLIA [id number] [place] [address] [place] Rh Nom (Bld) Positive Normal [facility] Comment on above: Order Comment: Speci men Type: BLOOD SPECIMENOrdering Facility: [facility] Address: [address] [place] [address] Performed By: #### T SCR ####[facility] BLOOD BANKCLIA [id number] [place] [address] [place] TYPE AND SCREEN EXPIRATION 05/14/2024 23:59 Normal [facility] Comment on above: Order Comment: Speci men Type: BLOOD SPECIMENOrdering Facility: [facility] Address: [address] [place] [address] Performed By: #### T SCR ####[facility] BLOOD BANKCLIA [id number] [place] [address] [place] Troponin IOrdered By: Tylor perez on 05-11-2024 Troponin I 13 pg/mL 3.0-54.[address] [facility] Urea nitrogen [Mass/Vol]Orde red By: Tylor Hendrickson on 05-11-2024 Serum or plasma urea nitrogen measurement (mass/volume) 30 mg/dL High 7-[address] [facility] Urinalysis, Completeon 05-11 BACTERIA 0 SEEN Normal None Seen [facility] Comment on above: Order Comment: CLEAN CATCH Performed By: #### L 400.0001 ####[facility] [address] [place], [address] EPI,SQUAMOUS 0 SEEN Normal 5-[address] [facility] Comment on above: Order Comment: CLEAN CATCH Performed By: #### L 400.0001 ####[facility] [address] [place], [address] Mucus Ql (Urine sed) 0 SEEN Normal [facility] Comment on above: Order Comment: CLEAN CATCH Performed By: #### L 400.0001 ####[facility] [address] [place], [address] RBC 0 SEEN Normal 0-[address] [facility] Comment on above: Order Comment: CLEAN CATCH Performed By: #### L 400.0001 ####[facility] [address] [place], [address] WBC 0 SEEN Normal 0-[address] [facility] Comment on above: Order Comment: CLEAN CATCH Performed By: #### L 400.0001 ####[facility] [address] [place], [address] Urine glucose detectionOrder ed By: Tylor Hendrickson on 05-11-2024 Urine glucose detection Normal mg/dl Normal [facility] Urine total bilirubin detect ion by test stripOrdered By: Tylor Hendrickson on 05-11-2024 Urine total bilirubin detection by test strip Negative Negative [facility] White blood cell (WBC) count Ordered By: Tylor Hendrickson on 05-11-2024 White blood cell (WBC) count 7.8 K/mm3 4.4-11.[address] [facility] White blood cell countOrdere d By: Tylor Hendrickson on 05-11-2024 White blood cell count 0 SEEN /hpf [facility] aPTT Coag (PPP) [Time]Ordere d By: Tylor Hendrickson on 05-11-2024 Activated partial thromboplastin time (aPTT) in platelet poor plasma by coagulation a 39.7 Seconds High 24.1-36.[address] [facility] aPTT PPPon 05-11-2024 aPTT Coag (PPP) [Time] 39.3 s High 23.0-32.4 [facility] Comment on above: Order Comment: Speci men Type: BLOOD SPECIMENOrdering Facility: [facility] Address: [address] [place] [address] Performed By: #### 1 4979-9, 87537-9 ####[facility] LABCLIA [id number] [place] [address] [place] pH (U)Ordered By: Tylor antonio on 05-11-2024 Urine pH 8.0 5.0 - 8.[address] [facility] 55-UE-Nqxukup DOrdered By: Jing Swenson on 04-14-2024 80-ST-Abfjrdc D 40.5 ng/mL [facility] Basic Metabolic Profile (BMP )on 04-14-2024 BUN/CRE 32.0 RATIO High 10-[address] [facility] Comment on above: Order Comment: Order Date: 04/14/24Order Info: 0667-1 - BMP Performed By: #### L 500.2500 ####[facility] [address] [place], [place], [address] [place],Total 9.1 mg/dL Normal 8.5-10.[address] [facility] Comment on above: Order Comment: Order Date: 04/14/24Order Info: 0667- - BMP Performed By: #### L 500.2500 ####[facility] [address] [place], [address] Chloride [Moles/Vol] 98 mmol/L Normal 98-107 [facility] Comment on above: Order Comment: Order Date: 04/14/24Order Info: 0667- - BMP Performed By: #### L 500.2500 ####[facility] [address] [place], [address] CO2 [Moles/Vol] 29.0 mmol/L Normal 21.0-32.[address] [facility] Comment on above: Order Comment: Order Date: 04/14/24Order Info: 666-05 - BMP Performed By: #### L 500.2500 ####[facility] [address] [place], [address] Creatinine [Mass/Vol] 0.88 mg/dL Normal 0.55-1.02 [facility] Comment on above: Order Comment: Order Date: 04/14/24Order Info: 666-05 - BMP Result Comment: The validity of the calculated GFR GFRAA in patients over70 years has not been determined. Clinical correlation isessential. Performed By: #### L 500.2500 ####[facility] [address] [place], [address] EST GFR - AA 79 mL/min Normal >[address] [facility] Comment on above: Order Comment: Order Date: 04/14/24Order Info: 666-05 - BMP Result Comment: Afri can [place] GFR Calc Performed By: #### L 500.2500 ####[facility] [address] [place], [address] GAP 9 Normal 5-[address] [facility] Comment on above: Order Comment: Order Date: 04/14/24Order Info: 666-05 - BMP Performed By: #### L 500.2500 ####[facility] [address] [place], [address] GFR/1.73 sq M.predicted among non-blacks MDRD (S/P/Bld) [Vol rate/Area] 65 mL/min/{1.73_m2} Normal >[address] [facility] Comment on above: Order Comment: Order Date: 04/14/24Order Info: 666-05 - BMP Result Comment: Non- GFR Calc Performed By: #### L 500.2500 ####[facility] [address] [place], [address] Glucose [Mass/Vol] 97 mg/dL Normal 74-106 [facility] Comment on above: Order Comment: Order Date: 04/14/24Order Info: 06671 - BMP Performed By: #### L 500.2500 ####[facility] [address] [place], [address] Potassium [Moles/Vol] 3.6 mmol/L Normal 3.5-5.1 [facility] Comment on above: Order Comment: Order Date: 04/14/24Order Info: 666-05 - BMP Performed By: #### L 500.2500 ####[facility] [address] [place], [address] Sodium [Moles/Vol] 137 mmol/L Normal 136-145 [facility] Comment on above: Order Comment: Order Date: 04/14/24Order Info: 0667 - BMP Performed By: #### L 500.2500 ####[facility] [address] [place], [address] Urea nitrogen [Mass/Vol] 28 mg/dL High 7-[address] [facility] Comment on above: Order Comment: Order Date: 04/14/24Order Info: 0667 - BMP Performed By: #### L 500.2500 ####[facility] [address] [place], [address] Blood urea nitrogen (BUN)/cr eatinine ratioOrdered By: Bridget Swenson on 04-14-2024 Blood urea nitrogen (BUN)/creatinine ratio 32.0 RATIO High 10-[address] [facility] Calcium [Mass/Vol]Ordered By : Bridget Swenson on 04-14-2024 Serum or plasma calcium measurement (mass/volume) 9.1 mg/dL 8.5-10.[address] [facility] Carbon dioxide measurementOr dered By: Bridget Swenson on 04-14-2024 Carbon dioxide measurement 29.0 mmol/L 21.0-32.[address] [facility] Chloride measurementOrdered By: Bridget Swenson on 04-14-2024 Chloride measurement 98 mmol/L 98-107 [facility] Creatinine [Mass/Vol]Ordered By: Bridget Swenson on 04-14-2024 Serum or plasma creatinine measurement (mass/volume) 0.88 mg/dL 0.55-1.[address] [facility] Estimated glomerular filtrat ion rate (GFR) AmericanOrdered By: Bridget Swenson on 04-14-2024 Estimated glomerular filtration rate (GFR) 79 mL/min >[address] [facility] Glomerular filtration rate ( GFR) estimationOrdered By: Bridget Swenson on 04-14-2024 Glomerular filtration rate (GFR) estimation 65 mL/min >[address] [facility] Glucose measurementOrdered B y: Bridget Swenson on 04-14-2024 Glucose measurement 97 mg/dL 74-106 [facility] Intact parathyroid hormone ( iPTH) measurementOrdered By: Bridget Swenson on 04-14-2024 Intact parathyroid hormone (iPTH) measurement 106.4 pg/mL High 18.4-80.[address] [facility] PTHINon 04-14-2024 PTH 106.4 pg/mL High 18.4-80.[address] [facility] Comment on above: Order Comment: Order Date: 04/14/24Order Info: 0565-1 - PTHIN Performed By: #### L 506.1000, L509.1000 ####[facility] [address] [place], [place], [address] Potassium measurementOrdered By: Bridget Swenson on 04-14-2024 Potassium measurement 3.6 mmol/L 3.5-5.1 [facility] Serum anion gap measurementO rdered By: Bridget Swenson on 04-14-2024 Serum anion gap measurement 9 5-[address] [facility] Sodium levelOrdered By: Zenaida Swenson on 04-14-2024 Sodium level 137 mmol/L 136-[address] [facility] Urea nitrogen [Mass/Vol]Orde red By: Bridget Swenson on 04-14-2024 Serum or plasma urea nitrogen measurement (mass/volume) 28 mg/dL High 7-[address] [facility] Vitamin D,25 Hydroxyon 04-14 Vitamin D 25-OH 40.5 ng/mL Normal [facility] Comment on above: Order Comment: Order Date: 04/14/24Order Info: [id number] - [id number] Result Comment: Nathalie min D 25(OH) Status Range Deficiency <20 ng/mL (50nmol/L) Insufficiency 20 - 30 ng/mL (50 - 75 nmol/L) Sufficiency 30 - 100 ng/mL (75 - 250 nmol/L) Toxicity >100 ng/mL (>250 nmol/L) Performed By: #### L 506.1000, L509.1000 ####[facility] [address] [place], [address] Carotid Duplex Ultrasoundon 04-01-2024 Carotid Duplex Ultrasound Normal [facility] Basophil percentageOrdered B y: Bridget Swenson on 08-27-2023 Chloride [Moles/Vol] 96 mmol/L 98-107 [facility] Glucose [Mass/Vol] 96 mg/dL 74-106 [facility] Potassium [Moles/Vol] 3.9 mmol/L 3.5-5.1 [facility] Sodium [Moles/Vol] 135 mmol/L 136-145 [facility] Laboratory - Chemistry and C hemistry - challengeOrdered By: Bridget Swenson on 08-27-2023 CO2 [Moles/Vol] 30.0 mmol/L 21.0-32.[address] [facility] Natriuretic peptide B (Bld) [Mass/Vol] 43.4 pg/mL 0-[address] [facility] Urea nitrogen/Creatinine [Mass ratio] 38.9 mg/mg 10-[address] [facility] No Panel InformationOrdered By: Bridget Swenson on 08-27-2023 Estimated GFR (MDRD) Amer 69 mL/min >[address] [facility] Comment on above: GFR Calc Estimated GFR (MDRD) Non-Af Amer 57 mL/min >[address] [facility] Comment on above: Non- GFR Calc Serum or plasma calcium manuel urement (mass/volume)Ordered By: Bridget Swenson on 08-27-2023 Calcium [Mass/Vol] 9.2 mg/dL 8.5-10.1 [facility] Serum or plasma creatinine m easurement (mass/volume)Ordered By: Bridget Swenson on 08-27-2023 Creatinine [Mass/Vol] 0.98 mg/dL 0.55-1.02 [facility] Comment on above: The validity of the calculated GFR & GFRAA in patients over 70 years has not been determined. Clinical correlation is essential. Serum or plasma urea nitroge n measurement (mass/volume)Ordered By: Bridget Swenson on 08-27-2023 Urea nitrogen [Mass/Vol] 38 mg/dL 7-[address] [facility] Thin prep Papanicolaou smear with manual screeningOrdered By: Bridget Swenson on 08-27-2023 Thin prep Papanicolaou smear with manual screening 9 5-[address] [facility] Absolute lymphocyte countOrd ered By: Doyle Swenson on 08-11-2023 Lymphocytes Auto (Unsp spec) [#/Vol] 1.88 10*3/uL 0.83-4.[address] [facility] Automated lymphocyte count a s percentage of total leukocytesOrdered By: Doyle Swenson on 08-11-2023 Lymphocytes/100 WBC Auto (Unsp spec) 23.9 % 19-[address] [facility] Basophil percentageOrdered B y: Doyle Swenson on 08-11-2023 Basophils/100 WBC (Bld) 0.9 % 0-1 [facility] Bilirubin [Mass/Vol] 0.40 mg/dL 0.20-1.00 [facility] Comment on above: For patients on eltr ombopag therapy, use of Dimension [place] TBIL is not recommended. Chloride [Moles/Vol] 102 mmol/L 98-107 [facility] Eosinophils/100 WBC (Bld) 2.0 % 0-[address] [facility] Glucose [Mass/Vol] 112 mg/dL 74-106 [facility] Comment on above: Fasting Glucose resu lt from 100 to 125 mg/dL suggests IMPAIRED HOMEOSTASIS per A.D.A. criteria. Hemoglobin (Bld) [Mass/Vol] 11.4 g/dL 12.0-15.[address] [facility] Monocytes/100 WBC (Bld) 8.5 % 0-10 [facility] Neutrophils (Bld) [#/Vol] 5.1 10*3/uL 2.0-7.[address] [facility] Neutrophils/100 WBC (Bld) 64.3 % 47-[address] [facility] Potassium [Moles/Vol] 4.4 mmol/L 3.5-5.1 [facility] Protein [Mass/Vol] 7.5 g/dL 6.4-8.2 [facility] Sodium [Moles/Vol] 138 mmol/L 136-145 [facility] WBC (Bld) [#/Vol] 7.9 10*3/uL 4.4-11.0 [facility] Determination of erythrocyte mean corpuscular volume (MCV)Ordered By: Doyle Swenson on 08-11-2023 MCV (RBC) [Entitic vol] 91.3 fL 81-99 [facility] Erythrocyte distribution wid th ratioOrdered By: Doyle Swenson on 08-11-2023 Erythrocyte distribution width (RBC) [Ratio] 14.2 % 11.6-14.[address] [facility] Erythrocyte distribution wid th standard deviationOrdered By: Doyle Swenson on 08-11-2023 Erythrocyte distribution width (RBC) [Entitic vol] 47.9 fL 35.1-43.[address] [facility] Hematocrit Auto (Bld) [Volum e fraction]Ordered By: Doyle Swenson on 08-11-2023 Hematocrit (Bld) [Volume fraction] 35.8 % 37-[address] [facility] Immature granulocytes/100 WB C Auto (Bld)Ordered By: Doyle Swenson on 08-11-2023 Immature granulocytes/100 WBC (Bld) 0.400 % 0.0-0.[address] [facility] Comment on above: IG% - Immature Granu locytes (promyelocytes, myelocytes and metamyelocytes) > 1% indicates that a LEFT SHIFT is Present. Iron measurement (mass/mass) Ordered By: Doyle Swenson on 08-11-2023 Iron (Unsp spec) [Mass/Mass] 32 ug/dL 50-[address] [facility] Laboratory - Chemistry and C hemistry - challengeOrdered By: Doyle Swenson on 08-11-2023 Albumin/Globulin [Mass ratio] 0.9 {ratio} 0.9-2.[address] [facility] ALP [Catalytic activity/Vol] 60 U/L 45-[address] [facility] ALT [Catalytic activity/Vol] 18 U/L 13-[address] [facility] CO2 [Moles/Vol] 28.0 mmol/L 21.0-32.[address] [facility] Ferritin [Mass/Vol] 41 ng/mL 8-252 [facility] Globulin (S) [Mass/Vol] 4.0 g/dL 2.2-4.2 [facility] Urea nitrogen/Creatinine [Mass ratio] 36.8 mg/mg 10-[address] [facility] Laboratory - Hematology and Cell countsOrdered By: Doyle Swenson on 08-11-2023 MCH (RBC) [Entitic mass] 29.1 pg 27.0-32.[address] [facility] MCHC (RBC) [Mass/Vol] 31.8 g/dL 32-36 [facility] Nucleated RBC/100 WBC (Bld) [Ratio] 0 % 0-[address] [facility] Platelet mean volume (Bld) [Entitic vol] 9.7 fL 6.2-12.[address] [facility] Platelets (Bld) [#/Vol] 385 10*3/uL 150-[address] [facility] No Panel InformationOrdered By: Doyle Swenson on 08-11-2023 Estimated GFR (MDRD) Amer 77 mL/min >[address] [facility] Comment on above: GFR Calc Estimated GFR (MDRD) Non-Af Amer 63 mL/min >[address] [facility] Comment on above: Non- GFR Calc RBC Auto (Bld) [#/Vol]Ordere d By: Doyle Swenson on 08-11-2023 RBC (Bld) [#/Vol] 3.92 10*6/uL 4.2-5.4 [facility] Serum or plasma calcium manuel urement (mass/volume)Ordered By: Doyle Swenson on 08-11-2023 Calcium [Mass/Vol] 8.8 mg/dL 8.5-10.1 [facility] Serum or plasma creatinine m easurement (mass/volume)Ordered By: Doyle Swenson on 08-11-2023 Creatinine [Mass/Vol] 0.90 mg/dL 0.55-1.02 [facility] Comment on above: The validity of the calculated GFR & GFRAA in patients over 70 years has not been determined. Clinical correlation is essential. Serum or plasma thyroid stim ulating hormone (TSH) measurement (units/volume)Ordered By: Doyle Swenson on 08-11-2023 TSH Qn 1.34 uIU/mL 0.358-3.[address] [facility] Serum or plasma urea nitroge n measurement (mass/volume)Ordered By: Doyle Swenson on 08-11-2023 Urea nitrogen [Mass/Vol] 33 mg/dL 7-[address] [facility] Thin prep Papanicolaou smear with manual screeningOrdered By: Doyle Swenson on 08-11-2023 Thin prep Papanicolaou smear with manual screening 3.5 g/dL 3.2-5.[address] [facility] Thin prep Papanicolaou smear with manual screening 21 U/L 15-[address] [facility] Thin prep Papanicolaou smear with manual screening 8 5-[address] [facility] Basophil percentageOrdered B y: Doyle Swenson on 08-06-2023 Chloride [Moles/Vol] 104 mmol/L 98-107 [facility] Glucose [Mass/Vol] 102 mg/dL 74-106 [facility] Comment on above: Fasting Glucose resu lt from 100 to 125 mg/dL suggests IMPAIRED HOMEOSTASIS per A.D.A. criteria. Potassium [Moles/Vol] 4.5 mmol/L 3.5-5.1 [facility] Comment on above: Slight Hemolysis, Re sult may be falsely increased. Sodium [Moles/Vol] 136 mmol/L 136-145 [facility] Laboratory - Chemistry and C hemistry - challengeOrdered By: Doyle Swenson on 08-06-2023 CO2 [Moles/Vol] 27.0 mmol/L 21.0-32.[address] [facility] Urea nitrogen/Creatinine [Mass ratio] 22.6 mg/mg 10-[address] [facility] No Panel InformationOrdered By: Doyle Swenson on 08-06-2023 Estimated GFR (MDRD) Amer 63 mL/min >[address] [facility] Comment on above: GFR Calc Estimated GFR (MDRD) Non-Af Amer 52 mL/min >[address] [facility] Comment on above: Non- GFR Calc Serum or plasma calcium manuel urement (mass/volume)Ordered By: Doyle Swenson on 08-06-2023 Calcium [Mass/Vol] 8.5 mg/dL 8.5-10.1 [facility] Serum or plasma creatinine m easurement (mass/volume)Ordered By: Doyle Swenson on 08-06-2023 Creatinine [Mass/Vol] 1.06 mg/dL 0.55-1.02 [facility] Comment on above: The validity of the calculated GFR & GFRAA in patients over 70 years has not been determined. Clinical correlation is essential. Serum or plasma urea nitroge n measurement (mass/volume)Ordered By: Doyle Swenson on 08-06-2023 Urea nitrogen [Mass/Vol] 24 mg/dL 7-[address] [facility] Thin prep Papanicolaou smear with manual screeningOrdered By: Doyle Swenson on 08-06-2023 Thin prep Papanicolaou smear with manual screening 5 5-[address] [facility] Basophil percentageOrdered B y: Doyle Swenson on 06-09-2023 Bilirubin [Mass/Vol] 0.40 mg/dL 0.20-1.00 [facility] Comment on above: For patients on eltr ombopag therapy, use of Dimension [place] TBIL is not recommended. Chloride [Moles/Vol] 99 mmol/L 98-107 [facility] Glucose [Mass/Vol] 96 mg/dL 74-106 [facility] Hemoglobin (Bld) [Mass/Vol] 11.0 g/dL 12.0-15.[address] [facility] Potassium [Moles/Vol] 4.4 mmol/L 3.5-5.1 [facility] Protein [Mass/Vol] 7.5 g/dL 6.4-8.2 [facility] Sodium [Moles/Vol] 134 mmol/L 136-145 [facility] WBC (Bld) [#/Vol] 6.8 10*3/uL 4.4-11.0 [facility] Determination of erythrocyte mean corpuscular volume (MCV)Ordered By: Doyle Swenson on 06-09-2023 MCV (RBC) [Entitic vol] 95.3 fL 81-99 [facility] Erythrocyte distribution wid th ratioOrdered By: Doyle Swenson on 06-09-2023 Erythrocyte distribution width (RBC) [Ratio] 13.6 % 11.6-14.[address] [facility] Erythrocyte distribution wid th standard deviationOrdered By: Doyle Swenson on 06-09-2023 Erythrocyte distribution width (RBC) [Entitic vol] 48.3 fL 35.1-43.[address] [facility] Erythrocyte sedimentation ra teOrdered By: Doyle Swenson on 06-09-2023 ESR (Bld) [Velocity] 50 mm/h 0-30 [facility] Hematocrit Auto (Bld) [Volum e fraction]Ordered By: Doyle Swenson on 06-09-2023 Hematocrit (Bld) [Volume fraction] 36.3 % 37-[address] [facility] Laboratory - Chemistry and C hemistry - challengeOrdered By: Doyle Swenson on 06-09-2023 Albumin/Globulin [Mass ratio] 0.8 {ratio} 0.9-2.[address] [facility] ALP [Catalytic activity/Vol] 63 U/L 45-[address] [facility] ALT [Catalytic activity/Vol] 24 U/L 13-[address] [facility] CO2 [Moles/Vol] 31.0 mmol/L 21.0-32.[address] [facility] Globulin (S) [Mass/Vol] 4.2 g/dL 2.2-4.2 [facility] Natriuretic peptide B (Bld) [Mass/Vol] 90.9 pg/mL 0-[address] [facility] Urea nitrogen/Creatinine [Mass ratio] 35.1 mg/mg 10-[address] [facility] Laboratory - Hematology and Cell countsOrdered By: Doyle Swenson on 06-09-2023 MCH (RBC) [Entitic mass] 28.9 pg 27.0-32.[address] [facility] MCHC (RBC) [Mass/Vol] 30.3 g/dL 32-36 [facility] Platelets (Bld) [#/Vol] 353 10*3/uL 150-[address] [facility] No Panel InformationOrdered By: Doyle Swenson on 06-09-2023 C-Reactive Protein Extended Range 21.90 mg/L 0.0-3.[address] [facility] Comment on above: C-Reactive Protein ( CRP) provides useful information for thediagnosis, therapy and monitoring of inflammatory processesand associated diseases. For the evaluation of Relative Riskfor Cardiovascular Disease, a High Sensitivity CRP (HSCRP)should be ordered. Estimated GFR (MDRD) Amer 84 mL/min >[address] [facility] Comment on above: GFR Calc Estimated GFR (MDRD) Non-Af Amer 69 mL/min >[address] [facility] Comment on above: Non- GFR Calc Platelet mean volume Mauricio-Ec ker (Bld) [Entitic vol]Ordered By: Doyle Swenson on 06-09-2023 Platelet mean volume (Bld) [Entitic vol] 10.0 fL 6.2-12.[address] [facility] RBC Auto (Bld) [#/Vol]Ordere d By: Doyle Swenson on 06-09-2023 RBC (Bld) [#/Vol] 3.81 10*6/uL 4.2-5.4 [facility] Serum or plasma calcium manuel urement (mass/volume)Ordered By: Doyle Swenson on 06-09-2023 Calcium [Mass/Vol] 9.5 mg/dL 8.5-10.1 [facility] Serum or plasma creatinine m easurement (mass/volume)Ordered By: Doyle Swenson on 06-09-2023 Creatinine [Mass/Vol] 0.83 mg/dL 0.55-1.02 [facility] Comment on above: The validity of the calculated GFR & GFRAA in patients over 70 years has not been determined. Clinical correlation is essential. Serum or plasma thyroid stim ulating hormone (TSH) measurement (units/volume)Ordered By: Doyle Swenson on 06-09-2023 TSH Qn 0.76 uIU/mL 0.358-3.[address] [facility] Serum or plasma urea nitroge n measurement (mass/volume)Ordered By: Doyle Swenson on 06-09-2023 Urea nitrogen [Mass/Vol] 29 mg/dL 7-[address] [facility] Serum or plasma uric acid me asurement (mass/volume)Ordered By: Doyle Swenson on 06-09-2023 Urate [Mass/Vol] 6.4 mg/dL 2.6-6.[address] [facility] Comment on above: The drugs N-Acetylcy steine and Metamizole may falsely depress this assay. Thin prep Papanicolaou smear with manual screeningOrdered By: Doyle Swenson on 06-09-2023 Thin prep Papanicolaou smear with manual screening 3.3 g/dL 3.2-5.[address] [facility] Thin prep Papanicolaou smear with manual screening 22 U/L 15-[address] [facility] Thin prep Papanicolaou smear with manual screening 4 5-[address] [facility] Absolute lymphocyte countOrd ered By: Duglas Shields on 05-12-2023 Lymphocytes Auto (Unsp spec) [#/Vol] 0.93 10*3/uL 0.83-4.[address] [facility] Basophil percentageOrdered B y: Duglas Shields on 05-12-2023 Basophil percentage 0-5 SEEN /hpf 0-5 [facility] Basophils/100 WBC (Bld) 0.7 % 0-1 [facility] Chloride [Moles/Vol] 100 mmol/L 98-107 [facility] Eosinophils/100 WBC (Bld) 1.3 % 0-[address] [facility] Glucose [Mass/Vol] 108 mg/dL 74-106 [facility] Comment on above: Fasting Glucose resu lt from 100 to 125 mg/dL suggests IMPAIRED HOMEOSTASIS per A.D.A. criteria. Neutrophils (Bld) [#/Vol] 4.7 10*3/uL 2.0-7.[address] [facility] Neutrophils/100 WBC (Bld) 65.0 % 47-[address] [facility] Potassium [Moles/Vol] 3.9 mmol/L 3.5-5.1 [facility] Sodium [Moles/Vol] 135 mmol/L 136-145 [facility] WBC (Bld) [#/Vol] 7.2 10*3/uL 4.4-11.0 [facility] Bilirubin Test strip Ql (U)O rdered By: Duglas Shields on 05-12-2023 Bilirubin Ql (U) Negative Negative [facility] Blood erythrocytes count (nu mber/volume)Ordered By: Duglas Shields on 05-12-2023 RBC (Bld) [#/Vol] 3.68 10*6/uL 4.2-5.4 [facility] Blood hemoglobin measurement (mass/volume)Ordered By: Duglas Shields on 05-12-2023 Hemoglobin (Bld) [Mass/Vol] 10.6 g/dL 12.0-15.[address] [facility] Blood lymphocytes/100 leukoc ytesOrdered By: Duglas Shields on 05-12-2023 Lymphocytes/100 WBC (Bld) 13.0 % 19-[address] [facility] Blood monocytes/100 leukocyt esOrdered By: Duglas Shields on 05-12-2023 Monocytes/100 WBC (Bld) 19.2 % 0-10 [facility] Blood platelet mean volumeOr dered By: Duglas Shields on 05-12-2023 Platelet mean volume (Bld) [Entitic vol] 9.5 fL 6.2-12.[address] [facility] Determination of erythrocyte mean corpuscular volume (MCV)Ordered By: Duglas Shields on 05-12-2023 MCV (RBC) [Entitic vol] 92.4 fL 81-99 [facility] Hematocrit Auto (Bld) [Volum e fraction]Ordered By: Duglas Shields on 05-12-2023 Hematocrit (Bld) [Volume fraction] 34.0 % 37-[address] [facility] INR in Blood by Coagulation assayOrdered By: Duglas Shields on 05-12-2023 INR Coag (Bld) [Relative time] 2.2 {INR} [facility] Influenza virus A and B and SARS-CoV-2 (COVID-19) Ag panel - Upper respiratory specimOrdered By: Duglas Shields on 05-12-2023 SARS-CoV-2 (COVID-19) RNA RHYS+probe Ql (Resp) [facility] Ketones Test strip Ql (U)Ord ered By: Duglas Shields on 05-12-2023 Ketones Ql (U) Negative Negative [facility] Laboratory - Chemistry and C hemistry - challengeOrdered By: Duglas Shields on 05-12-2023 CO2 [Moles/Vol] 30.0 mmol/L 21.0-32.[address] [facility] Urea nitrogen/Creatinine [Mass ratio] 18.0 mg/mg 10-[address] [facility] Laboratory - CoagulationOrde red By: Duglas Shields on 05-12-2023 PT Coag (PPP) [Time] 24.4 s 11.7-14.9 [facility] Laboratory - Hematology and Cell countsOrdered By: Duglas Shields on 05-12-2023 Erythrocyte distribution width (RBC) [Entitic vol] 46.5 fL 35.1-43.[address] [facility] Erythrocyte distribution width (RBC) [Ratio] 13.5 % 11.6-14.[address] [facility] Immature granulocytes/100 WBC (Bld) 0.800 % 0.0-0.[address] [facility] Comment on above: IG% - Immature Granu locytes (promyelocytes, myelocytes and metamyelocytes) > 1% indicates that a LEFT SHIFT is Present. MCH (RBC) [Entitic mass] 28.8 pg 27.0-32.[address] [facility] Nucleated RBC/100 WBC (Bld) [Ratio] 0 % 0-[address] [facility] MCHC Auto (RBC) [Mass/Vol]Or dered By: Duglas Shields on 05-12-2023 MCHC (RBC) [Mass/Vol] 31.2 g/dL 32-36 [facility] Mucus LM Ql (Urine sed)Order ed By: Duglas Shields on 05-12-2023 Mucus Ql (Urine sed) 0 SEEN /hpf [facility] Nitrite Test strip Ql (U)Ord ered By: Duglas Shields on 05-12-2023 Nitrite Ql (U) Negative Negative [facility] No Panel InformationOrdered By: Duglas Shields on 05-12-2023 Estimated GFR (MDRD) Amer 90 mL/min >[address] [facility] Comment on above: GFR Calc Estimated GFR (MDRD) Non-Af Amer 74 mL/min >[address] [facility] Comment on above: Non- GFR Calc Platelets bldOrdered By: Sharda Shields on 05-12-2023 Platelets (Bld) [#/Vol] 362 10*3/uL 150-[address] [facility] Protein Test strip Ql (U)Ord ered By: Duglas Shields on 05-12-2023 Protein Ql (U) 30 mg/dl Negative [facility] Serum or plasma calcium manuel urement (mass/volume)Ordered By: Duglas Shields on 05-12-2023 Calcium [Mass/Vol] 9.2 mg/dL 8.5-10.1 [facility] Serum or plasma creatinine m easurement (mass/volume)Ordered By: Duglas Shields on 05-12-2023 Creatinine [Mass/Vol] 0.78 mg/dL 0.55-1.02 [facility] Comment on above: The validity of the calculated GFR & GFRAA in patients over 70 years has not been determined. Clinical correlation is essential. Serum or plasma urea nitroge n measurement (mass/volume)Ordered By: Duglas Shields on 05-12-2023 Urea nitrogen [Mass/Vol] 14 mg/dL 7-[address] [facility] Squamous epithelial cells de tection in urine sediment by light microscopyOrdered By: Duglas Shields on 05-12-2023 Epithelial cells.squamous LM Ql (Urine sed) 0-5 SEEN /hpf 5-[address] [facility] Thin prep Papanicolaou smear with manual screeningOrdered By: Duglas Shields on 05-12-2023 Thin prep Papanicolaou smear with manual screening 5 5-[address] [facility] Upper respiratory specimen i nfluenza A virus, influenza B virus, and severe acute resOrdered By: Duglas Shields on 05-12-2023 Upper respiratory specimen influenza A virus, influenza B virus, and severe acute res [facility] Upper respiratory specimen i nfluenza A virus, influenza B virus, and severe acute respiratory syndromOrdered By: Duglas Shields on 05-12-2023 Upper respiratory specimen influenza A virus, influenza B virus, and severe acute respiratory syndrom [facility] Urine blood detectionOrdered By: Duglas Shields on 05-12-2023 RBC Ql (U) 10 /ul Negative [facility] RBC Ql (U) 0-5 SEEN /hpf 0-[address] [facility] Urine clarityOrdered By: Sharda Shields on 05-12-2023 Clarity (U) Clear Clear [facility] Urine color determinationOrd ered By: Duglas Shields on 05-12-2023 Color (U) Straw Yellow [facility] Urine glucose detectionOrder ed By: Duglas Shields on 05-12-2023 Glucose Ql (U) Normal mg/dl Normal [facility] Urine leukocyte esterase det ection by dipstickOrdered By: Duglas Shields on 05-12-2023 Leukocyte esterase Test strip Ql (U) Negative Negative [facility] Urine pHOrdered By: Duglas abreu on 05-12-2023 pH (U) 8.0 [pH] 5.0 - 8.[address] [facility] Urine sediment bacteria coun t by microscopy (number/high power field)Ordered By: Duglas Shields on 05-12-2023 Bacteria LM.HPF (Urine sed) [#/Area] 0 /[HPF] None Seen [facility] Urine specific gravity measu rementOrdered By: Duglas Shields on 05-12-2023 Specific gravity (U) [Rel density] 1.010 1.002-1.[address] [facility] Urobilinogen Auto test strip Ql (U)Ordered By: Duglas Shields on 05-12-2023 Urobilinogen Ql (U) Normal mg/dl Normal [facility] Serum or plasma ferritin fran surement (mass/volume)Ordered By: Juan Jose Thomas on 02-25-2023 Ferritin [Mass/Vol] 90 ng/mL 8-252 [facility] Basophil percentageOrdered B y: Doyle Swenson on 12-18-2022 Chloride [Moles/Vol] 101 mmol/L 98-107 [facility] Glucose [Mass/Vol] 91 mg/dL 74-106 [facility] Potassium [Moles/Vol] 4.7 mmol/L 3.5-5.1 [facility] Sodium [Moles/Vol] 134 mmol/L 136-145 [facility] WBC (Bld) [#/Vol] 6.5 10*3/uL 4.4-11.0 [facility] Blood erythrocytes count (nu mber/volume)Ordered By: Doyle Swenson on 12-18-2022 RBC (Bld) [#/Vol] 3.92 10*6/uL 4.2-5.4 [facility] Blood hemoglobin measurement (mass/volume)Ordered By: Doyle Swenson on 12-18-2022 Hemoglobin (Bld) [Mass/Vol] 11.8 g/dL 12.0-15.[address] [facility] Blood platelet mean volumeOr dered By: Doyle Swenson on 12-18-2022 Platelet mean volume (Bld) [Entitic vol] 10.2 fL 6.2-12.[address] [facility] Determination of erythrocyte mean corpuscular volume (MCV)Ordered By: Doyle Swenson on 12-18-2022 MCV (RBC) [Entitic vol] 98.5 fL 81-99 [facility] Hematocrit Auto (Bld) [Volum e fraction]Ordered By: Doyle Swenson on 12-18-2022 Hematocrit (Bld) [Volume fraction] 38.6 % 37-[address] [facility] INR in Blood by Coagulation assayOrdered By: Doyle Swenson on 12-18-2022 INR Coag (Bld) [Relative time] 2.1 {INR} [facility] Iron measurement (mass/mass) Ordered By: Doyle Swenson on 12-18-2022 Iron (Unsp spec) [Mass/Mass] 61 ug/dL 50-[address] [facility] Laboratory - Chemistry and C hemistry - challengeOrdered By: Doyle Swenson on 12-18-2022 CO2 [Moles/Vol] 27.0 mmol/L 21.0-32.[address] [facility] Natriuretic peptide B (Bld) [Mass/Vol] 44.6 pg/mL 0-[address] [facility] Urea nitrogen/Creatinine [Mass ratio] 30.3 mg/mg 10-[address] [facility] Laboratory - CoagulationOrde red By: Doyle Swenson on 12-18-2022 PT Coag (PPP) [Time] 23.4 s 11.7-14.9 [facility] Laboratory - Hematology and Cell countsOrdered By: Doyle Swenson on 12-18-2022 Erythrocyte distribution width (RBC) [Entitic vol] 45.0 fL 35.1-43.[address] [facility] Erythrocyte distribution width (RBC) [Ratio] 12.5 % 11.6-14.[address] [facility] MCH (RBC) [Entitic mass] 30.1 pg 27.0-32.[address] [facility] MCHC Auto (RBC) [Mass/Vol]Or dered By: Doyle Swenson on 12-18-2022 MCHC (RBC) [Mass/Vol] 30.6 g/dL 32-36 [facility] No Panel InformationOrdered By: Doyle Swenson on 12-18-2022 Estimated GFR (MDRD) Amer 74 mL/min >[address] [facility] Comment on above: GFR Calc Estimated GFR (MDRD) Non-Af Amer 61 mL/min >[address] [facility] Comment on above: Non- GFR Calc Thyroid Stimulating Hormone (TSH) 1.37 uIU/mL 0.358-3.[address] [facility] Platelets bldOrdered By: Chr jutopjonathan Leela on 12-18-2022 Platelets (Bld) [#/Vol] 319 10*3/uL 150-[address] [facility] Serum or plasma calcium manuel urement (mass/volume)Ordered By: Doyle Swenson on 12-18-2022 Calcium [Mass/Vol] 9.1 mg/dL 8.5-10.1 [facility] Serum or plasma creatinine m easurement (mass/volume)Ordered By: Doyle Swenson on 12-18-2022 Creatinine [Mass/Vol] 0.92 mg/dL 0.55-1.02 [facility] Comment on above: The validity of the calculated GFR & GFRAA in patients over 70 years has not been determined. Clinical correlation is essential. Serum or plasma ferritin fran surement (mass/volume)Ordered By: Doyle Swenson on 12-18-2022 Ferritin [Mass/Vol] 66 ng/mL 8-252 [facility] Serum or plasma urea nitroge n measurement (mass/volume)Ordered By: Doyel Swenson on 12-18-2022 Urea nitrogen [Mass/Vol] 28 mg/dL 7-[address] [facility] Thin prep Papanicolaou smear with manual screeningOrdered By: Doyle Swenson on 12-18-2022 Thin prep Papanicolaou smear with manual screening 6 5-[address] [facility] Basophil percentageOrdered B y: Murtaza Charles on 11-06-2022 Bilirubin [Mass/Vol] 0.40 mg/dL 0.20-1.00 [facility] Comment on above: For patients on eltr ombopag therapy, use of Dimension [place] TBIL is not recommended. Chloride [Moles/Vol] 101 mmol/L 98-107 [facility] Glucose [Mass/Vol] 107 mg/dL 74-106 [facility] Comment on above: Fasting Glucose resu lt from 100 to 125 mg/dL suggests IMPAIRED HOMEOSTASIS per A.D.A. criteria. Potassium [Moles/Vol] 4.3 mmol/L 3.5-5.1 [facility] Protein [Mass/Vol] 7.7 g/dL 6.4-8.2 [facility] Sodium [Moles/Vol] 137 mmol/L 136-145 [facility] Laboratory - Chemistry and C hemistry - challengeOrdered By: Murtaza Charles on 11-06-2022 Natriuretic peptide B (Bld) [Mass/Vol] 49.3 pg/mL 0-[address] [facility] ALP [Catalytic activity/Vol] 61 U/L 45-[address] [facility] ALT [Catalytic activity/Vol] 22 U/L 13-[address] [facility] CO2 [Moles/Vol] 30.0 mmol/L 21.0-32.[address] [facility] Globulin (S) [Mass/Vol] 4.1 g/dL 2.2-4.2 [facility] Urea nitrogen/Creatinine [Mass ratio] 26.4 mg/mg 10-[address] [facility] No Panel InformationOrdered By: Murtaza Charles on 11-06-2022 Estimated GFR (MDRD) Amer 84 mL/min >[address] [facility] Comment on above: GFR Calc Estimated GFR (MDRD) Non-Af Amer 69 mL/min >[address] [facility] Comment on above: Non- GFR Calc Troponin I High Sensitivity 10 pg/mL 3.0-54.[address] [facility] Comment on above: Please Note: New Padmini t Units and Gender Specific Reference Ranges. For more information see Policy Stat Procedure [place] High Sensitivity Troponin (TNIH) and attachments. Serum or plasma albumin manuel urement (mass/volume)Ordered By: Murtaza Charles on 11-06-2022 Albumin [Mass/Vol] 3.6 g/dL 3.2-5.0 [facility] Serum or plasma albumin/glob ulin mass ratioOrdered By: Murtaza Charles on 11-06-2022 Albumin/Globulin [Mass ratio] 0.9 {ratio} 0.9-2.[address] [facility] Serum or plasma calcium manuel urement (mass/volume)Ordered By: Murtaza Charles on 11-06-2022 Calcium [Mass/Vol] 9.0 mg/dL 8.5-10.1 [facility] Serum or plasma creatinine m easurement (mass/volume)Ordered By: Murtaza Charles on 11-06-2022 Creatinine [Mass/Vol] 0.83 mg/dL 0.55-1.02 [facility] Comment on above: The validity of the calculated GFR & GFRAA in patients over 70 years has not been determined. Clinical correlation is essential. Serum or plasma urea nitroge n measurement (mass/volume)Ordered By: Murtaza Charles on 11-06-2022 Urea nitrogen [Mass/Vol] 22 mg/dL 7-[address] [facility] Thin prep Papanicolaou smear with manual screeningOrdered By: Murtaza Melvin on 11-06-2022 Thin prep Papanicolaou smear with manual screening 22 U/L 15- [facility] Thin prep Papanicolaou smear with manual screening 6 5-[address] [facility] Absolute lymphocyte countOrd ered By: Dr. Swenson on 08-26-2022 Lymphocytes Auto (Unsp spec) [#/Vol] 1.93 10*3/uL 0.83-4.[address] [facility] Basophil percentageOrdered B y: Dr. Swenson on 08-26-2022 Basophils/100 WBC (Bld) 0.7 % 0-1 [facility] Bilirubin [Mass/Vol] 0.40 mg/dL 0.20-1.00 [facility] Comment on above: For patients on eltr ombopag therapy, use of Dimension [place] TBIL is not recommended. Chloride [Moles/Vol] 101 mmol/L 98-107 [facility] Eosinophils/100 WBC (Bld) 1.2 % 0-[address] [facility] Glucose [Mass/Vol] 110 mg/dL 74-106 [facility] Comment on above: Fasting Glucose resu lt from 100 to 125 mg/dL suggests IMPAIRED HOMEOSTASIS per A.D.A. criteria. Neutrophils (Bld) [#/Vol] 5.2 10*3/uL 2.0-7.[address] [facility] Neutrophils/100 WBC (Bld) 64.4 % 47-[address] [facility] Potassium [Moles/Vol] 3.9 mmol/L 3.5-5.1 [facility] Protein [Mass/Vol] 7.3 g/dL 6.4-8.2 [facility] Sodium [Moles/Vol] 136 mmol/L 136-145 [facility] WBC (Bld) [#/Vol] 8.1 10*3/uL 4.4-11.0 [facility] Blood erythrocytes count (nu mber/volume)Ordered By: Dr. Swenson on 08-26-2022 RBC (Bld) [#/Vol] 4.36 10*6/uL 4.2-5.4 [facility] Blood hemoglobin measurement (mass/volume)Ordered By: Dr. Swenson on 08-26-2022 Hemoglobin (Bld) [Mass/Vol] 13.1 g/dL 12.0-15.[address] [facility] Blood lymphocytes/100 leukoc ytesOrdered By: Dr. Swenson on 08-26-2022 Lymphocytes/100 WBC (Bld) 23.7 % 19-[address] [facility] Blood monocytes/100 leukocyt esOrdered By: Dr. Swenson on 08-26-2022 Monocytes/100 WBC (Bld) 8.5 % 0-10 [facility] Blood platelet mean volumeOr dered By: Dr. Swenson on 08-26-2022 Platelet mean volume (Bld) [Entitic vol] 9.8 fL 6.2-12.[address] [facility] Determination of erythrocyte mean corpuscular volume (MCV)Ordered By: Dr. Swenson on 08-26-2022 MCV (RBC) [Entitic vol] 95.2 fL 81-99 [facility] Direct bilirubinOrdered By: Dr. Swenson on 08-26-2022 Bilirubin.direct [Mass/Vol] 0.11 mg/dL 0.00-0.[address] [facility] Erythrocyte sedimentation ra teOrdered By: Dr. Swenson on 08-26-2022 ESR (Bld) [Velocity] 15 mm/h 0-30 [facility] Hematocrit Auto (Bld) [Volum e fraction]Ordered By: Dr. Swenson on 08-26-2022 Hematocrit (Bld) [Volume fraction] 41.5 % 37-[address] [facility] INR in Blood by Coagulation assayOrdered By: Dr. Swenson on 08-26-2022 INR Coag (Bld) [Relative time] 1.3 {INR} [facility] Laboratory - Chemistry and C hemistry - challengeOrdered By: Dr. Swenson on 08-26-2022 ALP [Catalytic activity/Vol] 59 U/L 45-[address] [facility] ALT [Catalytic activity/Vol] 23 U/L 13-[address] [facility] CO2 [Moles/Vol] 31.0 mmol/L 21.0-32.[address] [facility] Globulin (S) [Mass/Vol] 3.5 g/dL 2.2-4.2 [facility] Urea nitrogen/Creatinine [Mass ratio] 27.7 mg/mg 10-[address] [facility] Laboratory - CoagulationOrde red By: Dr. Swenson on 08-26-2022 PT Coag (PPP) [Time] 15.5 s 11.7-14.9 [facility] Laboratory - Hematology and Cell countsOrdered By: Dr. Swenson on 08-26-2022 Erythrocyte distribution width (RBC) [Entitic vol] 51.2 fL 35.1-43.[address] [facility] Erythrocyte distribution width (RBC) [Ratio] 14.6 % 11.6-14.[address] [facility] Immature granulocytes/100 WBC (Bld) 1.500 % 0.0-0.[address] [facility] Comment on above: IG% - Immature Granu locytes (promyelocytes, myelocytes and metamyelocytes) > 1% indicates that a LEFT SHIFT is Present. MCH (RBC) [Entitic mass] 30.0 pg 27.0-32.[address] [facility] Nucleated RBC/100 WBC (Bld) [Ratio] 0 % 0-[address] [facility] MCHC Auto (RBC) [Mass/Vol]Or dered By: Dr. Swenson on 08-26-2022 MCHC (RBC) [Mass/Vol] 31.6 g/dL 32-36 [facility] No Panel InformationOrdered By: Dr. Swenson on 08-26-2022 Estimated GFR (MDRD) Amer 98 mL/min >[address] [facility] Comment on above: GFR Calc Estimated GFR (MDRD) Non-Af Amer 81 mL/min >[address] [facility] Comment on above: Non- GFR Calc Ionized Calcium 4.9 mg/dL 4.5-5.[address] [facility] Comment on above: Performed at: [facility] [employer] [address] [id number] Director: Arjun Pisano PhD, Phone: [phone] Parathyroid Hormone (Intact) 92.1 pg/mL 18.4-80.[address] [facility] Thyroid Stimulating Hormone (TSH) 1.08 uIU/mL 0.358-3.[address] [facility] Vitamin D 25-Hydroxy 39.6 ng/mL [facility] Comment on above: Vitamin D 25(OH) Sta tus Range Deficiency <20 ng/mL (50nmol/L) Insufficiency 20 - 30 ng/mL (50 - 75 nmol/L) Sufficiency 30 - 100 ng/mL (75 - 250 nmol/L) Toxicity >100 ng/mL (>250 nmol/L) Platelets bldOrdered By: Dr. Swenson on 08-26-2022 Platelets (Bld) [#/Vol] 365 10*3/uL 150-[address] [facility] Serum or plasma albumin manuel urement (mass/volume)Ordered By: Dr. Swenson on 08-26-2022 Albumin [Mass/Vol] 3.8 g/dL 3.2-5.0 [facility] Serum or plasma calcium manuel urement (mass/volume)Ordered By: Dr. Swenson on 08-26-2022 Calcium [Mass/Vol] 9.2 mg/dL 8.5-10.1 [facility] Serum or plasma creatinine m easurement (mass/volume)Ordered By: Dr. Swenson on 08-26-2022 Creatinine [Mass/Vol] 0.72 mg/dL 0.55-1.02 [facility] Comment on above: The validity of the calculated GFR & GFRAA in patients over 70 years has not been determined. Clinical correlation is essential. Serum or plasma urea nitroge n measurement (mass/volume)Ordered By: Dr. Swenson on 04-17-2023 Urea nitrogen [Mass/Vol] 20 mg/dL 7-[address] [facility] Thin prep Papanicolaou smear with manual screeningOrdered By: Dr. Swenson on 08-26-2022 Thin prep Papanicolaou smear with manual screening 21 U/L 15-[address] [facility] Thin prep Papanicolaou smear with manual screening 4 5-[address] [facility] Basophil percentageOrdered B y: Dr. Swenson on 05-20-2022 Basophil percentage 120 mg/dL 74-106 [facility] Basophil percentage 4.9 mg/dL 2.5-4.9 [facility] Basophil percentage 138 mmol/L 136-145 [facility] Basophil percentage 4.1 mmol/L 3.5-5.1 [facility] Basophil percentage 100 mmol/L 98-107 [facility] Chloride [Moles/Vol] 100 mmol/L 98-107 [facility] Glucose [Mass/Vol] 120 mg/dL 74-106 [facility] Comment on above: Fasting Glucose resu lt from 100 to 125 mg/dL suggests IMPAIRED HOMEOSTASIS per A.D.A. criteria. Potassium [Moles/Vol] 4.1 mmol/L 3.5-5.1 [facility] Sodium [Moles/Vol] 138 mmol/L 136-145 [facility] Laboratory - Chemistry and C hemistry - challengeOrdered By: Dr. Swenson on 05-20-2022 CO2 [Moles/Vol] 29.0 mmol/L 21.0-32.[address] [facility] Magnesium [Mass/Vol] 2.2 mg/dL 1.6-2.6 [facility] Urea nitrogen/Creatinine [Mass ratio] 27.8 mg/mg 10-[address] [facility] No Panel InformationOrdered By: Dr. Swenson on 05-20-2022 Ionized Calcium 6.0 mg/dL 4.5-5.[address] [facility] Comment on above: Performed at: [address] [id number] Director: Arjun Pisano PhD, Phone: [phone] 6.0 mg/dL 4.5-5.[address] [facility] Estimated GFR (MDRD) Amer 73 mL/min >[address] [facility] Comment on above: GFR Calc Estimated GFR (MDRD) Non-Af Amer 60 mL/min >[address] [facility] Comment on above: Non- GFR Calc Parathyroid Hormone (Intact) 12.5 pg/mL 18.4-80.[address] [facility] Thyroid Stimulating Hormone (TSH) 0.80 uIU/mL 0.358-3.[address] [facility] Vitamin D 25-Hydroxy 71.5 ng/mL [facility] Comment on above: Vitamin D 25(OH) Sta tus Range Deficiency <20 ng/mL (50nmol/L) Insufficiency 20 - 30 ng/mL (50 - 75 nmol/L) Sufficiency 30 - 100 ng/mL (75 - 250 nmol/L) Toxicity >100 ng/mL (>250 nmol/L) 60 mL/min >[address] [facility] 73 mL/min >[address] [facility] 27.8 RATIO 10-[address] [facility] 2.2 mg/dL 1.6-2.[address] [facility] 29.0 mmol/L 21.0-32.[address] [facility] 0.80 uIU/mL 0.358-3.[address] [facility] 71.5 ng/mL [facility] 12.5 pg/mL 18.4-80.[address] [facility] Serum or plasma calcium manuel urement (mass/volume)Ordered By: Dr. Swenson on 05-20-2022 Calcium [Mass/Vol] 10.3 mg/dL 8.5-10.1 [facility] Serum or plasma creatinine m easurement (mass/volume)Ordered By: Dr. Swenson on 05-20-2022 Creatinine [Mass/Vol] 0.94 mg/dL 0.55-1.02 [facility] Comment on above: The validity of the calculated GFR & GFRAA in patients over 70 years has not been determined. Clinical correlation is essential. Serum or plasma urea nitroge n measurement (mass/volume)Ordered By: Dr. Swenson on 05-20-2022 Urea nitrogen [Mass/Vol] 26 mg/dL 7-[address] [facility] Thin prep Papanicolaou smear with manual screeningOrdered By: Dr. Swenson on 05-20-2022 Thin prep Papanicolaou smear with manual screening 9 5-[address] [facility] Basophil percentageOrdered B y: Efewongbe Oleghe on 05-14-2022 Basophil percentage 6.1 g/dL 6.4-8.2 [facility] Basophil percentage 0.30 mg/dL 0.20-1.00 [facility] Bilirubin [Mass/Vol] 0.30 mg/dL 0.20-1.00 [facility] Comment on above: For patients on eltr ombopag therapy, use of Dimension [place] TBIL is not recommended. Protein [Mass/Vol] 6.1 g/dL 6.4-8.2 [facility] Direct bilirubinOrdered By: Zackary Lyon on 05-14-2022 Bilirubin.direct [Mass/Vol] 0.10 mg/dL 0.00-0.[address] [facility] INR in Blood by Coagulation assayOrdered By: Zackary Lyon on 05-14-2022 INR Coag (Bld) [Relative time] 1.7 {INR} [facility] Laboratory - Chemistry and C hemistry - challengeOrdered By: Zackary Lyon on 05-14-2022 ALP [Catalytic activity/Vol] 67 U/L [facility] ALT [Catalytic activity/Vol] 22 U/L [facility] Globulin (S) [Mass/Vol] 3.2 g/dL 2.2-4.2 [facility] Laboratory - CoagulationOrde red By: Zackary Lyon on 05-14-2022 PT Coag (PPP) [Time] 19.9 s 11.7-14.9 [facility] No Panel InformationOrdered By: Zackary Lyon on 05-14-2022 19.9 SECONDS 11.7-14.[address] [facility] 3.2 g/dL 2.2-4.[address] [facility] 67 U/L [facility] 22 U/L [facility] Serum or plasma albumin manuel urement (mass/volume)Ordered By: Zackary Lyon on 05-14-2022 Albumin [Mass/Vol] 2.9 g/dL 3.2-5.0 [facility] Thin prep Papanicolaou smear with manual screeningOrdered By: Zackary Lyon on 05-14-2022 Thin prep Papanicolaou smear with manual screening 20 U/L 15-[address] [facility] Absolute lymphocyte countOrd ered By: Zackary Lyon on 04-29-2022 Lymphocytes Auto (Unsp spec) [#/Vol] 2.40 10*3/uL 0.83-4.[address] [facility] Basophil percentageOrdered B y: Zackary Lyon on 04-29-2022 Basophil percentage 78 mg/dL 74-106 [facility] Basophil percentage 136 mmol/L 136-145 [facility] Basophil percentage 4.2 mmol/L 3.5-5.1 [facility] Basophil percentage 100 mmol/L 98-107 [facility] Basophils (Bld) [#/Vol] 7.1 10*3/uL 4.4-11.[address] [facility] Basophils (Bld) [#/Vol] 3.5 10*3/uL 2.0-7.[address] [facility] Basophils/100 WBC (Bld) 0.7 % 0-1 [facility] Basophils/100 WBC (Bld) 48.4 % 47-70 [facility] Basophils/100 WBC (Bld) 3.6 % 0-5 [facility] Basophil percentageon 2021 Chloride [Moles/Vol] 100 mmol/L 98-107 [facility] Work Phone: [phone] Eosinophils/100 WBC (Bld) 3.6 % 0-[address] [facility] Work Phone: Glucose [Mass/Vol] 78 mg/dL 74-106 [facility] Work Phone: Neutrophils (Bld) [#/Vol] 3.5 10*3/uL 2.0-7.[address] [facility] Work Phone: Neutrophils/100 WBC (Bld) 48.4 % 47-[address] [facility] Work Phone: Potassium [Moles/Vol] 4.2 mmol/L 3.5-5.1 [facility] Work Phone: Comment on above: Slight Hemolysis, Re sult may be falsely increased. Sodium [Moles/Vol] 136 mmol/L 136-145 [facility] Work Phone: WBC (Bld) [#/Vol] 7.1 10*3/uL 4.4-11.0 [facility] Work Phone: Blood erythrocytes count (nu mber/volume)Ordered By: Zackary Lyon on 04-29-2022 RBC (Bld) [#/Vol] 3.75 10*6/uL 4.2-5.4 [facility] Blood hemoglobin measurement (mass/volume)Ordered By: Zackary Lyon on 04-29-2022 Hemoglobin (Bld) [Mass/Vol] 10.8 g/dL 12.0-15.[address] [facility] Blood lymphocytes/100 leukoc ytesOrdered By: Zackary Lyon on 04-29-2022 Lymphocytes/100 WBC (Bld) 33.7 % 19-[address] [facility] Blood monocytes/100 leukocyt esOrdered By: Zackary Lyon on 04-29-2022 Monocytes/100 WBC (Bld) 13.0 % 0-10 [facility] Blood platelet mean volumeOr dered By: Zackary Lyon on 04-29-2022 Platelet mean volume (Bld) [Entitic vol] 10.1 fL 6.2-12.[address] [facility] Determination of erythrocyte mean corpuscular volume (MCV)Ordered By: Zackary Lyon on 04-29-2022 MCV (RBC) [Entitic vol] 95.5 fL 81-99 [facility] Hematocrit Auto (Bld) [Volum e fraction]Ordered By: Zackary Lyon on 04-29-2022 Hematocrit (Bld) [Volume fraction] 35.8 % 37-[address] [facility] INR in Blood by Coagulation assayOrdered By: Zackary Lyon on 04-29-2022 INR Coag (Bld) [Relative time] 1.4 {INR} [facility] Laboratory - Chemistry and C hemistry - challengeon 04-29-2022 CO2 [Moles/Vol] 31.0 mmol/L 21.0-32.[address] [facility] Work Phone: Urea nitrogen/Creatinine [Mass ratio] 27.9 mg/mg 10-[address] [facility] Work Phone: Laboratory - Coagulationon 1 06-30-2021 PT Coag (PPP) [Time] 17.2 s 11.7-14.9 [facility] Work Phone: Laboratory - Hematology and Cell countson 04-29-2022 Erythrocyte distribution width (RBC) [Entitic vol] 48.3 fL 35.1-43.[address] [facility] Work Phone: Erythrocyte distribution width (RBC) [Ratio] 13.7 % 11.6-14.[address] [facility] Work Phone: Immature granulocytes/100 WBC (Bld) 0.600 % 0.0-0.[address] [facility] Work Phone: Comment on above: IG% - Immature Granu locytes (promyelocytes, myelocytes and metamyelocytes) > 1% indicates that a LEFT SHIFT is Present. MCH (RBC) [Entitic mass] 28.8 pg 27.0-32.[address] [facility] Work Phone: Nucleated RBC/100 WBC (Bld) [Ratio] 0 % 0-[address] [facility] Work Phone: MCHC Auto (RBC) [Mass/Vol]Or dered By: Zackary Lyon on 04-29-2022 MCHC (RBC) [Mass/Vol] 30.2 g/dL 32-36 [facility] No Panel Informationon 04-29 Estimated GFR (MDRD) Amer 73 mL/min >[address] [facility] Work Phone: Comment on above: GFR Calc Estimated GFR (MDRD) Non-Af Amer 61 mL/min >[address] [facility] Work Phone: Comment on above: Non- GFR Calc No Panel InformationOrdered By: Zackary Lyon on 04-29-2022 28.8 pg 27.0-32.[address] [facility] 13.7 % 11.6-14.[address] [facility] 48.3 fl 35.1-43.[address] [facility] 0.600 % 0.0-0.[address] [facility] 0 % 0-[address] [facility] 17.2 SECONDS 11.7-14.[address] [facility] 61 mL/min >[address] [facility] 73 mL/min >[address] [facility] 27.9 RATIO 10-[address] [facility] 31.0 mmol/L 21.0-32.[address] [facility] Platelets bldOrdered By: James mason Toddletty on 04-29-2022 Platelets (Bld) [#/Vol] 288 10*3/uL 150-[address] [facility] Serum or plasma calcium manuel urement (mass/volume)Ordered By: Zackary Lyon on 04-29-2022 Calcium [Mass/Vol] 9.6 mg/dL 8.5-10.1 [facility] Serum or plasma creatinine m easurement (mass/volume)Ordered By: aZckary Lyon on 04-29-2022 Creatinine [Mass/Vol] 0.93 mg/dL 0.55-1.02 [facility] Comment on above: The validity of the calculated GFR & GFRAA in patients over 70 years has not been determined. Clinical correlation is essential. Serum or plasma urea nitroge n measurement (mass/volume)Ordered By: Zackary Lyon on 04-29-2022 Urea nitrogen [Mass/Vol] 26 mg/dL 7-[address] [facility] Thin prep Papanicolaou smear with manual screeningOrdered By: Zackary Lyon on 04-29-2022 Thin prep Papanicolaou smear with manual screening 5 5-[address] [facility] Absolute lymphocyte countOrd ered By: Jesseyariellouisnataly Brooksmonicasalvador on 04-22-2022 Lymphocytes Auto (Unsp spec) [#/Vol] 1.78 10*3/uL 0.83-4.[address] [facility] Basophil percentageOrdered B y: Zackary Lyon on 04-22-2022 Basophil percentage 104 mg/dL 74-106 [facility] Basophil percentage 134 mmol/L 136-145 [facility] Basophil percentage 4.6 mmol/L 3.5-5.1 [facility] Basophil percentage 100 mmol/L 98-107 [facility] Basophils (Bld) [#/Vol] 6.6 10*3/uL 4.4-11.[address] [facility] Basophils (Bld) [#/Vol] 3.8 10*3/uL 2.0-7.[address] [facility] Basophils/100 WBC (Bld) 0.8 % 0-1 [facility] Basophils/100 WBC (Bld) 57.9 % 47-70 [facility] Basophils/100 WBC (Bld) 3.2 % 0-5 [facility] Basophil percentageon 2021 Chloride [Moles/Vol] 100 mmol/L 98-107 [facility] Work Phone: [phone] Eosinophils/100 WBC (Bld) 3.2 % 0-[address] [facility] Work Phone: Glucose [Mass/Vol] 104 mg/dL 74-106 [facility] Work Phone: [phone] Comment on above: Fasting Glucose resu lt from 100 to 125 mg/dL suggests IMPAIRED HOMEOSTASIS per A.D.A. criteria. Neutrophils (Bld) [#/Vol] 3.8 10*3/uL 2.0-7.[address] [facility] Work Phone: [phone] Neutrophils/100 WBC (Bld) 57.9 % 47-[address] [facility] Work Phone: [phone] Potassium [Moles/Vol] 4.6 mmol/L 3.5-5.1 [facility] Work Phone: [phone] Comment on above: Slight Hemolysis, Re sult may be falsely increased. Sodium [Moles/Vol] 134 mmol/L 136-145 [facility] Work Phone: [phone] WBC (Bld) [#/Vol] 6.6 10*3/uL 4.4-11.0 [facility] Work Phone: Blood erythrocytes count (nu mber/volume)Ordered By: Zackary Lyon on 04-22-2022 RBC (Bld) [#/Vol] 3.68 10*6/uL 4.2-5.4 [facility] Blood hemoglobin measurement (mass/volume)Ordered By: Zackary Lyon on 04-22-2022 Hemoglobin (Bld) [Mass/Vol] 12.0 g/dL 12.0-15.[address] [facility] Blood lymphocytes/100 leukoc ytesOrdered By: Zackary Lyon on 04-22-2022 Lymphocytes/100 WBC (Bld) 27.1 % 19-[address] [facility] Blood monocytes/100 leukocyt esOrdered By: Zackary Lyon on 04-22-2022 Monocytes/100 WBC (Bld) 9.9 % 0-10 [facility] Blood platelet mean volumeOr dered By: Zackary Lyon on 04-22-2022 Platelet mean volume (Bld) [Entitic vol] 10.1 fL 6.2-12.[address] [facility] Determination of erythrocyte mean corpuscular volume (MCV)Ordered By: Zackary Lyon on 04-22-2022 MCV (RBC) [Entitic vol] 102.4 fL 81-99 [facility] Hematocrit Auto (Bld) [Volum e fraction]Ordered By: Zackary Lyon on 04-22-2022 Hematocrit (Bld) [Volume fraction] 37.7 % 37-[address] [facility] INR in Blood by Coagulation assayOrdered By: Zackary Lyon on 04-22-2022 INR Coag (Bld) [Relative time] 1.3 {INR} [facility] Laboratory - Chemistry and C hemistry - challengeon 04-22-2022 CO2 [Moles/Vol] 28.0 mmol/L 21.0-32.[address] [facility] Work Phone: Urea nitrogen/Creatinine [Mass ratio] 23.2 mg/mg 10-[address] [facility] Work Phone: Laboratory - Coagulationon 1 06-23-2021 PT Coag (PPP) [Time] 15.6 s 11.7-14.9 [facility] Work Phone: Laboratory - Hematology and Cell countson 04-22-2022 Erythrocyte distribution width (RBC) [Entitic vol] 52.9 fL 35.1-43.[address] [facility] Work Phone: Erythrocyte distribution width (RBC) [Ratio] 16.4 % 11.6-14.[address] [facility] Work Phone: Immature granulocytes/100 WBC (Bld) 1.100 % 0.0-0.[address] [facility] Work Phone: Comment on above: IG% - Immature Granu locytes (promyelocytes, myelocytes and metamyelocytes) > 1% indicates that a LEFT SHIFT is Present. MCH (RBC) [Entitic mass] 32.6 pg 27.0-32.[address] [facility] Work Phone: Nucleated RBC/100 WBC (Bld) [Ratio] 0 % 0-[address] [facility] Work Phone: MCHC Auto (RBC) [Mass/Vol]Or dered By: Zackary Lyon on 04-22-2022 MCHC (RBC) [Mass/Vol] 31.8 g/dL 32-36 [facility] Comment on above: Delta: 30.1 on 04/18 No Panel Informationon 04-22 Estimated GFR (MDRD) Amer 76 mL/min >[address] [facility] Work Phone: Comment on above: GFR Calc Estimated GFR (MDRD) Non-Af Amer 63 mL/min >[address] [facility] Work Phone: Comment on above: Non- GFR Calc No Panel InformationOrdered By: Zackary Lyon on 04-22-2022 32.6 pg 27.0-32.[address] [facility] 16.4 % 11.6-14.[address] [facility] 52.9 fl 35.1-43.[address] [facility] 1.100 % 0.0-0.[address] [facility] 0 % 0-[address] [facility] 15.6 SECONDS 11.7-14.[address] [facility] 63 mL/min >[address] [facility] 76 mL/min >[address] [facility] 23.2 RATIO 10-[address] [facility] 28.0 mmol/L 21.0-32.[address] [facility] Platelets bldOrdered By: James Lyon on 04-22-2022 Platelets (Bld) [#/Vol] 270 10*3/uL 150-[address] [facility] Serum or plasma calcium manuel urement (mass/volume)Ordered By: Zackary Lyon on 04-22-2022 Calcium [Mass/Vol] 9.6 mg/dL 8.5-10.1 [facility] Serum or plasma creatinine m easurement (mass/volume)Ordered By: Zackary Lyon on 04-22-2022 Creatinine [Mass/Vol] 0.90 mg/dL 0.55-1.02 [facility] Comment on above: The validity of the calculated GFR & GFRAA in patients over 70 years has not been determined. Clinical correlation is essential. Serum or plasma urea nitroge n measurement (mass/volume)Ordered By: Zackary Lyon on 04-22-2022 Urea nitrogen [Mass/Vol] 21 mg/dL 7-[address] [facility] Thin prep Papanicolaou smear with manual screeningOrdered By: Zackary Lyon on 04-22-2022 Thin prep Papanicolaou smear with manual screening 6 5-[address] [facility] Absolute lymphocyte countOrd ered By: Dr. Jimenez on 04-18-2022 Lymphocytes Auto (Unsp spec) [#/Vol] 1.62 10*3/uL 0.83-4.[address] [facility] Basophil percentageOrdered B y: Dr. Jimenez on 04-18-2022 Basophil percentage 86 mg/dL 74-106 [facility] Basophil percentage 134 mmol/L 136-145 [facility] Basophil percentage 3.3 mmol/L 3.5-5.1 [facility] Basophil percentage 99 mmol/L 98-107 [facility] Basophils (Bld) [#/Vol] 7.4 10*3/uL 4.4-11.[address] [facility] Basophils (Bld) [#/Vol] 4.6 10*3/uL 2.0-7.[address] [facility] Basophils/100 WBC (Bld) 0.8 % 0-1 [facility] Basophils/100 WBC (Bld) 61.5 % 47-70 [facility] Basophils/100 WBC (Bld) 3.8 % 0-5 [facility] Basophil percentageon 2021 Chloride [Moles/Vol] 99 mmol/L 98-107 [facility] Work Phone: Eosinophils/100 WBC (Bld) 3.8 % 0-[address] [facility] Work Phone: Glucose [Mass/Vol] 86 mg/dL 74-106 [facility] Work Phone: Neutrophils (Bld) [#/Vol] 4.6 10*3/uL 2.0-7.[address] [facility] Work Phone: Neutrophils/100 WBC (Bld) 61.5 % 47-[address] [facility] Work Phone: Potassium [Moles/Vol] 3.3 mmol/L 3.5-5.1 [facility] Work Phone: Sodium [Moles/Vol] 134 mmol/L 136-145 [facility] Work Phone: WBC (Bld) [#/Vol] 7.4 10*3/uL 4.4-11.0 [facility] Work Phone: Blood erythrocytes count (nu mber/volume)Ordered By: Dr. Jimenez on 04-18-2022 RBC (Bld) [#/Vol] 3.79 10*6/uL 4.2-5.4 [facility] Blood hemoglobin measurement (mass/volume)Ordered By: Dr. Jimenez on 04-18-2022 Hemoglobin (Bld) [Mass/Vol] 11.5 g/dL 12.0-15.[address] [facility] Blood lymphocytes/100 leukoc ytesOrdered By: Dr. Jimenez on 04-18-2022 Lymphocytes/100 WBC (Bld) 21.8 % 19-[address] [facility] Blood monocytes/100 leukocyt esOrdered By: Dr. Jimenez on 04-18-2022 Monocytes/100 WBC (Bld) 11.4 % 0-10 [facility] Blood platelet mean volumeOr dered By: Dr. Jimenez on 04-18-2022 Platelet mean volume (Bld) [Entitic vol] 9.2 fL 6.2-12.[address] [facility] COVID-19 virus antigen assay Ordered By: Dr. Maza on 04-18-2022 SARS-CoV-2 (COVID-19) Ag IA.rapid Ql (Resp) [facility] Determination of erythrocyte mean corpuscular volume (MCV)Ordered By: Dr. Jimenez on 04-18-2022 MCV (RBC) [Entitic vol] 100.8 fL 81-99 [facility] Comment on above: Delta: 91.9 on 04/17 Hematocrit Auto (Bld) [Volum e fraction]Ordered By: Dr. Jimenez on 04-18-2022 Hematocrit (Bld) [Volume fraction] 38.2 % 37-[address] [facility] Laboratory - Chemistry and C hemistry - challengeon 04-18-2022 CO2 [Moles/Vol] 28.0 mmol/L 21.0-32.[address] [facility] Work Phone: Urea nitrogen/Creatinine [Mass ratio] 19.1 mg/mg 10-[address] [facility] Work Phone: Laboratory - Hematology and Cell countson 04-18-2022 Erythrocyte distribution width (RBC) [Entitic vol] 50.6 fL 35.1-43.[address] [facility] Work Phone: Erythrocyte distribution width (RBC) [Ratio] 13.8 % 11.6-14.[address] [facility] Work Phone: Immature granulocytes/100 WBC (Bld) 0.700 % 0.0-0.[address] [facility] Work Phone: Comment on above: IG% - Immature Granu locytes (promyelocytes, myelocytes and metamyelocytes) > 1% indicates that a LEFT SHIFT is Present. MCH (RBC) [Entitic mass] 30.3 pg 27.0-32.[address] [facility] Work Phone: Nucleated RBC/100 WBC (Bld) [Ratio] 0 % 0-[address] [facility] Work Phone: MCHC Auto (RBC) [Mass/Vol]Or dered By: Dr. Jimenez on 04-18-2022 MCHC (RBC) [Mass/Vol] 30.1 g/dL 32-36 [facility] No Panel Informationon 04-18 Estimated Creatinine Clearance Calc 30.86 ml/min [facility] Work Phone: Estimated GFR (MDRD) Amer 72 mL/min >[address] [facility] Work Phone: Comment on above: GFR Calc Estimated GFR (MDRD) Non-Af Amer 60 mL/min >[address] [facility] Work Phone: Comment on above: Non- GFR Calc No Panel InformationOrdered By: Dr. Jimenez on 04-18-2022 30.3 pg 27.0-32.[address] [facility] 13.8 % 11.6-14.[address] [facility] 50.6 fl 35.1-43.[address] [facility] 0.700 % 0.0-0.[address] [facility] 0 % 0-[address] [facility] 60 mL/min >[address] [facility] 72 mL/min >[address] [facility] 30.86 ml/min [facility] 19.1 RATIO 10-[address] [facility] 28.0 mmol/L 21.0-32.[address] [facility] Platelets bldOrdered By: Dr. Jimenez on 04-18-2022 Platelets (Bld) [#/Vol] 361 10*3/uL 150-[address] [facility] Serum or plasma calcium manuel urement (mass/volume)Ordered By: Dr. Jimenez on 04-18-2022 Calcium [Mass/Vol] 9.5 mg/dL 8.5-10.1 [facility] Serum or plasma creatinine m easurement (mass/volume)Ordered By: Dr. Jimenez on 04-18-2022 Creatinine [Mass/Vol] 0.94 mg/dL 0.55-1.02 [facility] Comment on above: The validity of the calculated GFR & GFRAA in patients over 70 years has not been determined. Clinical correlation is essential. Serum or plasma urea nitroge n measurement (mass/volume)Ordered By: Dr. Jimenez on 04-18-2022 Urea nitrogen [Mass/Vol] 18 mg/dL 7-[address] [facility] Thin prep Papanicolaou smear with manual screeningOrdered By: Dr. Jimenez on 04-18-2022 Thin prep Papanicolaou smear with manual screening 7 5-[address] [facility] Basophil percentageOrdered B y: Dr. Judd on 04-16-2022 Basophil percentage 6.7 g/dL 6.4-8.2 [facility] Basophil percentage 0.40 mg/dL 0.20-1.00 [facility] Basophil percentageon 2021 Bilirubin [Mass/Vol] 0.40 mg/dL 0.20-1.00 [facility] Work Phone: Comment on above: For patients on eltr ombopag therapy, use of Dimension [place] TBIL is not recommended. Protein [Mass/Vol] 6.7 g/dL 6.4-8.2 [facility] Work Phone: Direct bilirubinOrdered By: Dr. Judd on 04-16-2022 Bilirubin.direct [Mass/Vol] 0.12 mg/dL 0.00-0.[address] [facility] INR in Blood by Coagulation assayOrdered By: Dr. Maza on 04-16-2022 INR Coag (Bld) [Relative time] 1.3 {INR} [facility] Laboratory - Chemistry and C hemistry - challengeon 04-16-2022 ALP [Catalytic activity/Vol] 75 U/L 45-[address] [facility] Work Phone: ALT [Catalytic activity/Vol] 14 U/L 13-[address] [facility] Work Phone: Globulin (S) [Mass/Vol] 3.6 g/dL 2.2-4.2 [facility] Work Phone: Laboratory - Coagulationon 1 06-17-2021 aPTT Coag (Bld) [Time] 31.7 s 24.1-36.2 [facility] Work Phone: PT Coag (PPP) [Time] 15.5 s 11.7-14.9 [facility] Work Phone: No Panel InformationOrdered By: Dr. Maza on 04-16-2022 15.5 SECONDS 11.7-14.[address] [facility] No Panel InformationOrdered By: Dr. Judd on 04-16-2022 31.7 Seconds 24.1-36.[address] [facility] 3.6 g/dL 2.2-4.[address] [facility] 75 U/L 45-[address] [facility] 14 U/L 13-[address] [facility] Serum or plasma albumin manuel urement (mass/volume)Ordered By: Dr. Judd on 04-16-2022 Albumin [Mass/Vol] 3.1 g/dL 3.2-5.0 [facility] Thin prep Papanicolaou smear with manual screeningOrdered By: Dr. Judd on 04-16-2022 Thin prep Papanicolaou smear with manual screening 16 U/L 15-[address] [facility] INR in Blood by Coagulation assayon 04-11-2022 INR Coag (Bld) [Relative time] 3.4 {INR} [facility] Work Phone: Laboratory - Coagulationon 1 06-12-2021 PT Coag (PPP) [Time] 33.7 s 11.7-14.9 [facility] Work Phone: Absolute lymphocyte counton 04-10-2022 Lymphocytes Auto (Unsp spec) [#/Vol] 1.24 10*3/uL 0.83-4.[address] [facility] Work Phone: Basophil percentageon 2021 Basophils/100 WBC (Bld) 0.4 % 0-1 [facility] Work Phone: Bilirubin [Mass/Vol] 0.40 mg/dL 0.20-1.00 [facility] Work Phone: Comment on above: For patients on eltr ombopag therapy, use of Dimension [place] TBIL is not recommended. Chloride [Moles/Vol] 99 mmol/L 98-107 [facility] Work Phone: Eosinophils/100 WBC (Bld) 0.5 % 0-[address] [facility] Work Phone: Glucose [Mass/Vol] 120 mg/dL 74-106 [facility] Work Phone: [phone] Comment on above: Fasting Glucose resu lt from 100 to 125 mg/dL suggests IMPAIRED HOMEOSTASIS per A.D.A. criteria. Neutrophils (Bld) [#/Vol] 6.4 10*3/uL 2.0-7.[address] [facility] Work Phone: Neutrophils/100 WBC (Bld) 77.0 % 47-[address] [facility] Work Phone: Potassium [Moles/Vol] 4.1 mmol/L 3.5-5.1 [facility] Work Phone: Protein [Mass/Vol] 7.4 g/dL 6.4-8.2 [facility] Work Phone: Sodium [Moles/Vol] 138 mmol/L 136-145 [facility] Work Phone: WBC (Bld) [#/Vol] 8.4 10*3/uL 4.4-11.0 [facility] Work Phone: Basophil percentageOrdered B y: Dr. Snow on 04-10-2022 Basophil percentage 0-5 SEEN /hpf 0-5 [facility] Bilirubin Test strip Ql (U)O rdered By: Dr. Snow on 04-10-2022 Bilirubin Ql (U) Negative Negative [facility] Blood erythrocytes count (nu mber/volume)on 04-10-2022 RBC (Bld) [#/Vol] 4.09 10*6/uL 4.2-5.4 [facility] Work Phone: Blood hemoglobin measurement (mass/volume)on 04-10-2022 Hemoglobin (Bld) [Mass/Vol] 11.9 g/dL 12.0-15.[address] [facility] Work Phone: Blood lymphocytes/100 leukoc yteson 04-10-2022 Lymphocytes/100 WBC (Bld) 14.9 % 19-[address] [facility] Work Phone: Blood monocytes/100 leukocyt eson 04-10-2022 Monocytes/100 WBC (Bld) 6.5 % 0-10 [facility] Work Phone: Blood platelet mean volumeon 04-10-2022 Platelet mean volume (Bld) [Entitic vol] 9.4 fL 6.2-12.[address] [facility] Work Phone: Determination of erythrocyte mean corpuscular volume (MCV)on 04-10-2022 MCV (RBC) [Entitic vol] 91.7 fL 81-99 [facility] Work Phone: Hematocrit Auto (Bld) [Volum e fraction]on 04-10-2022 Hematocrit (Bld) [Volume fraction] 37.5 % 37-[address] [facility] Work Phone: INR in Blood by Coagulation assayon 04-10-2022 INR Coag (Bld) [Relative time] 3.5 {INR} [facility] Work Phone: Ketones Test strip Ql (U)Ord ered By: Dr. Snow on 04-10-2022 Ketones Ql (U) 5 mg/dl Negative [facility] Laboratory - Chemistry and C hemistry - challengeon 04-10-2022 ALP [Catalytic activity/Vol] 87 U/L 45-[address] [facility] Work Phone: ALT [Catalytic activity/Vol] 17 U/L 13-[address] [facility] Work Phone: CO2 [Moles/Vol] 31.0 mmol/L 21.0-32.[address] [facility] Work Phone: Globulin (S) [Mass/Vol] 4.0 g/dL 2.2-4.2 [facility] Work Phone: Urea nitrogen/Creatinine [Mass ratio] 22.8 mg/mg 10-[address] [facility] Work Phone: Laboratory - Coagulationon 1 06-10-2021 PT Coag (PPP) [Time] 35.0 s 11.7-14.9 [facility] Work Phone: Laboratory - Hematology and Cell countson 04-10-2022 Erythrocyte distribution width (RBC) [Entitic vol] 46.0 fL 35.1-43.[address] [facility] Work Phone: Erythrocyte distribution width (RBC) [Ratio] 13.5 % 11.6-14.[address] [facility] Work Phone: Immature granulocytes/100 WBC (Bld) 0.700 % 0.0-0.[address] [facility] Work Phone: Comment on above: IG% - Immature Granu locytes (promyelocytes, myelocytes and metamyelocytes) > 1% indicates that a LEFT SHIFT is Present. MCH (RBC) [Entitic mass] 29.1 pg 27.0-32.[address] [facility] Work Phone: Nucleated RBC/100 WBC (Bld) [Ratio] 0 % 0-[address] [facility] Work Phone: MCHC Auto (RBC) [Mass/Vol]on 04-10-2022 MCHC (RBC) [Mass/Vol] 31.7 g/dL 32-36 [facility] Work Phone: Mucus LM Ql (Urine sed)Order ed By: Dr. Snow on 04-10-2022 Mucus Ql (Urine sed) 0 SEEN /hpf [facility] Nitrite Test strip Ql (U)Ord ered By: Dr. Snow on 04-10-2022 Nitrite Ql (U) Negative Negative [facility] No Panel Informationon 04-10 Estimated Creatinine Clearance Calc 29.01 ml/min [facility] Work Phone: Estimated GFR (MDRD) Amer 95 mL/min >[address] [facility] Work Phone: Comment on above: GFR Calc Estimated GFR (MDRD) Non-Af Amer 78 mL/min >[address] [facility] Work Phone: Comment on above: Non- GFR Calc Platelets bldon 04-10-2022 Platelets (Bld) [#/Vol] 341 10*3/uL 150-[address] [facility] Work Phone: Protein Test strip Ql (U)Ord ered By: Dr. Snow on 04-10-2022 Protein Ql (U) 30 mg/dl Negative [facility] Serum or plasma albumin manuel urement (mass/volume)on 04-10-2022 Albumin [Mass/Vol] 3.4 g/dL 3.2-5.0 [facility] Work Phone: Serum or plasma albumin/glob ulin mass ratioOrdered By: Dr. Snow on 04-10-2022 Albumin/Globulin [Mass ratio] 0.8 {ratio} 0.9-2.[address] [facility] Serum or plasma calcium manuel urement (mass/volume)on 04-10-2022 Calcium [Mass/Vol] 10.1 mg/dL 8.5-10.1 [facility] Work Phone: Serum or plasma creatinine m easurement (mass/volume)on 04-10-2022 Creatinine [Mass/Vol] 0.75 mg/dL 0.55-1.02 [facility] Work Phone: Comment on above: The validity of the calculated GFR & GFRAA in patients over 70 years has not been determined. Clinical correlation is essential. Serum or plasma urea nitroge n measurement (mass/volume)on 04-10-2022 Urea nitrogen [Mass/Vol] 17 mg/dL 7-[address] [facility] Work Phone: Squamous epithelial cells de tection in urine sediment by light microscopyOrdered By: Dr. Snow on 04-10-2022 Epithelial cells.squamous LM Ql (Urine sed) 0-5 SEEN /hpf 5-[address] [facility] Thin prep Papanicolaou smear with manual screeningon 04-10-2022 Thin prep Papanicolaou smear with manual screening 18 U/L 15-[address] [facility] Work Phone: Thin prep Papanicolaou smear with manual screening 8 5-[address] [facility] Work Phone: Urine blood detectionOrdered By: Dr. Snow on 04-10-2022 RBC Ql (U) 10 /ul Negative [facility] RBC Ql (U) 0 SEEN /hpf 0-[address] [facility] Urine clarityOrdered By: Dr. Snow on 04-10-2022 Clarity (U) Clear Clear [facility] Urine color determinationOrd ered By: Dr. Snow on 04-10-2022 Color (U) Yellow Yellow [facility] Urine glucose detectionOrder ed By: Dr. Snow on 04-10-2022 Glucose Ql (U) Normal mg/dl Normal [facility] Urine leukocyte esterase det ection by dipstickOrdered By: Dr. Snow on 04-10-2022 Leukocyte esterase Test strip Ql (U) 25 /ul Negative [facility] Urine pHOrdered By: Dr. Bhavik schneider on 04-10-2022 pH (U) 8.0 [pH] 5.0 - 8.[address] [facility] Urine sediment bacteria coun t by microscopy (number/high power field)Ordered By: Dr. Snow on 04-10-2022 Bacteria LM.HPF (Urine sed) [#/Area] RARE /hpf None Seen [facility] Urine specific gravity measu rementOrdered By: Dr. Snow on 04-10-2022 Specific gravity (U) [Rel density] 1.010 1.002-1.[address] [facility] Urobilinogen Auto test strip Ql (U)Ordered By: Dr. Snow on 04-10-2022 Urobilinogen Ql (U) Normal mg/dl Normal [facility] Absolute lymphocyte countOrd ered By: Dr. Marshall on 03-17-2022 Lymphocytes Auto (Unsp spec) [#/Vol] 2.46 10*3/uL 0.83-4.[address] [facility] Basophil percentageOrdered B y: Dr. Marshall on 03-17-2022 Basophil percentage 89 mg/dL 74-106 [facility] Basophil percentage 138 mmol/L 136-145 [facility] Basophil percentage 4.2 mmol/L 3.5-5.1 [facility] Basophil percentage 105 mmol/L 98-107 [facility] Basophils (Bld) [#/Vol] 8.7 10*3/uL 4.4-11.[address] [facility] Basophils (Bld) [#/Vol] 5.3 10*3/uL 2.0-7.[address] [facility] Basophils/100 WBC (Bld) 0.7 % 0-1 [facility] Basophils/100 WBC (Bld) 61.1 % 47-70 [facility] Basophils/100 WBC (Bld) 1.7 % 0-5 [facility] Basophil percentageon 2021 Chloride [Moles/Vol] 105 mmol/L 98-107 [facility] Work Phone: Eosinophils/100 WBC (Bld) 1.7 % 0-[address] [facility] Work Phone: Glucose [Mass/Vol] 89 mg/dL 74-106 [facility] Work Phone: Neutrophils (Bld) [#/Vol] 5.3 10*3/uL 2.0-7.[address] [facility] Work Phone: Neutrophils/100 WBC (Bld) 61.1 % 47-[address] [facility] Work Phone: Potassium [Moles/Vol] 4.2 mmol/L 3.5-5.1 [facility] Work Phone: Sodium [Moles/Vol] 138 mmol/L 136-145 [facility] Work Phone: WBC (Bld) [#/Vol] 8.7 10*3/uL 4.4-11.0 [facility] Work Phone: Blood erythrocytes count (nu mber/volume)Ordered By: Dr. Marshall on 03-17-2022 RBC (Bld) [#/Vol] 4.23 10*6/uL 4.2-5.4 [facility] Blood hemoglobin measurement (mass/volume)Ordered By: Dr. Marshall on 03-17-2022 Hemoglobin (Bld) [Mass/Vol] 12.6 g/dL 12.0-15.[address] [facility] Blood lymphocytes/100 leukoc ytesOrdered By: Dr. aMrshall on 03-17-2022 Lymphocytes/100 WBC (Bld) 28.2 % 19-[address] [facility] Blood monocytes/100 leukocyt esOrdered By: Dr. Marshall on 03-17-2022 Monocytes/100 WBC (Bld) 7.6 % 0-10 [facility] Blood platelet mean volumeOr dered By: Dr. Marshall on 03-17-2022 Platelet mean volume (Bld) [Entitic vol] 9.7 fL 6.2-12.[address] [facility] Determination of erythrocyte mean corpuscular volume (MCV)Ordered By: Dr. Marshall on 03-17-2022 MCV (RBC) [Entitic vol] 92.9 fL 81-99 [facility] Hematocrit Auto (Bld) [Volum e fraction]Ordered By: Dr. Marshall on 03-17-2022 Hematocrit (Bld) [Volume fraction] 39.3 % 37-[address] [facility] INR in Blood by Coagulation assayOrdered By: Dr. Marshall on 03-17-2022 INR Coag (Bld) [Relative time] 2.5 {INR} [facility] Laboratory - Chemistry and C hemistry - challengeon 03-17-2022 CO2 [Moles/Vol] 27.0 mmol/L 21.0-32.[address] [facility] Work Phone: Urea nitrogen/Creatinine [Mass ratio] 22.0 mg/mg 10-[address] [facility] Work Phone: Laboratory - Coagulationon 1 05-17-2021 PT Coag (PPP) [Time] 26.7 s 11.7-14.9 [facility] Work Phone: Laboratory - Hematology and Cell countson 03-17-2022 Erythrocyte distribution width (RBC) [Entitic vol] 47.2 fL 35.1-43.[address] [facility] Work Phone: Erythrocyte distribution width (RBC) [Ratio] 13.8 % 11.6-14.[address] [facility] Work Phone: Immature granulocytes/100 WBC (Bld) 0.700 % 0.0-0.[address] [facility] Work Phone: Comment on above: IG% - Immature Granu locytes (promyelocytes, myelocytes and metamyelocytes) > 1% indicates that a LEFT SHIFT is Present. MCH (RBC) [Entitic mass] 29.8 pg 27.0-32.[address] [facility] Work Phone: Nucleated RBC/100 WBC (Bld) [Ratio] 0 % 0-[address] [facility] Work Phone: MCHC Auto (RBC) [Mass/Vol]Or dered By: Dr. Marshall on 03-17-2022 MCHC (RBC) [Mass/Vol] 32.1 g/dL 32-36 [facility] No Panel Informationon 03-17 Estimated Creatinine Clearance Calc 31.04 ml/min [facility] Work Phone: Estimated GFR (MDRD) Amer 91 mL/min >[address] [facility] Work Phone: Comment on above: GFR Calc Estimated GFR (MDRD) Non-Af Amer 75 mL/min >[address] [facility] Work Phone: Comment on above: Non- GFR Calc No Panel InformationOrdered By: Dr. Marshall on 03-17-2022 29.8 pg 27.0-32.[address] [facility] 13.8 % 11.6-14.[address] [facility] 47.2 fl 35.1-43.[address] [facility] 0.700 % 0.0-0.[address] [facility] 0 % 0-[address] [facility] 26.7 SECONDS 11.7-14.[address] [facility] 75 mL/min >[address] [facility] 91 mL/min >[address] [facility] 31.04 ml/min [facility] 22.0 RATIO 10-[address] [facility] 27.0 mmol/L 21.0-32.[address] [facility] Platelets bldOrdered By: Dr. Marshall on 03-17-2022 Platelets (Bld) [#/Vol] 335 10*3/uL 150-[address] [facility] Serum or plasma calcium manuel urement (mass/volume)Ordered By: Dr. Marshall on 03-17-2022 Calcium [Mass/Vol] 9.7 mg/dL 8.5-10.1 [facility] Serum or plasma creatinine m easurement (mass/volume)Ordered By: Dr. Marshall on 03-17-2022 Creatinine [Mass/Vol] 0.77 mg/dL 0.55-1.02 [facility] Comment on above: The validity of the calculated GFR & GFRAA in patients over 70 years has not been determined. Clinical correlation is essential. Serum or plasma urea nitroge n measurement (mass/volume)Ordered By: Dr. Marshall on 03-17-2022 Urea nitrogen [Mass/Vol] 17 mg/dL 7-[address] [facility] Thin prep Papanicolaou smear with manual screeningOrdered By: Dr. Marshall on 03-17-2022 Thin prep Papanicolaou smear with manual screening 6 5-[address] [facility] COVID-19 virus antigen assay Ordered By: Dr. Marshall on 02-18-2022 SARS-CoV-2 (COVID-19) Ag IA.rapid Ql (Resp) [facility] INR in Blood by Coagulation assayon 02-18-2022 INR Coag (Bld) [Relative time] 1.2 {INR} [facility] Work Phone: Laboratory - Coagulationon 1 PT Coag (PPP) [Time] 14.5 s 11.7-14.9 [facility] Work Phone: Absolute lymphocyte counton 02-17-2022 Lymphocytes Auto (Unsp spec) [#/Vol] 1.74 10*3/uL 0.83-4.[address] [facility] Work Phone: Basophil percentageon 2021 Basophils/100 WBC (Bld) 0.8 % 0-1 [facility] Work Phone: [phone] Chloride [Moles/Vol] 96 mmol/L 98-107 [facility] Work Phone: [phone] Eosinophils/100 WBC (Bld) 5.2 % 0-[address] [facility] Work Phone: [phone] Glucose [Mass/Vol] 104 mg/dL 74-106 [facility] Work Phone: [phone] Comment on above: Fasting Glucose resu lt from 100 to 125 mg/dL suggests IMPAIRED HOMEOSTASIS per A.D.A. criteria. Neutrophils (Bld) [#/Vol] 5.1 10*3/uL 2.0-7.[address] [facility] Work Phone: [phone] Neutrophils/100 WBC (Bld) 60.6 % 47-[address] [facility] Work Phone: [phone] Potassium [Moles/Vol] 4.4 mmol/L 3.5-5.1 [facility] Work Phone: [phone] Sodium [Moles/Vol] 133 mmol/L 136-145 [facility] Work Phone: [phone] WBC (Bld) [#/Vol] 8.4 10*3/uL 4.4-11.0 [facility] Work Phone: Blood erythrocytes count (nu mber/volume)on 02-17-2022 RBC (Bld) [#/Vol] 3.75 10*6/uL 4.2-5.4 [facility] Work Phone: [phone] Blood hemoglobin measurement (mass/volume)on 02-17-2022 Hemoglobin (Bld) [Mass/Vol] 11.1 g/dL 12.0-15.[address] [facility] Work Phone: [phone] Blood lymphocytes/100 leukoc yteson 02-17-2022 Lymphocytes/100 WBC (Bld) 20.7 % 19-[address] [facility] Work Phone: [phone] Blood monocytes/100 leukocyt eson 02-17-2022 Monocytes/100 WBC (Bld) 11.0 % 0-10 [facility] Work Phone: Blood platelet mean volumeon 02-17-2022 Platelet mean volume (Bld) [Entitic vol] 9.3 fL 6.2-12.[address] [facility] Work Phone: Determination of erythrocyte mean corpuscular volume (MCV)on 02-17-2022 MCV (RBC) [Entitic vol] 93.9 fL 81-99 [facility] Work Phone: Hematocrit Auto (Bld) [Volum e fraction]on 02-17-2022 Hematocrit (Bld) [Volume fraction] 35.2 % 37-[address] [facility] Work Phone: Laboratory - Chemistry and C hemistry - challengeon 02-17-2022 CO2 [Moles/Vol] 31.0 mmol/L 21.0-32.[address] [facility] Work Phone: Urea nitrogen/Creatinine [Mass ratio] 15.0 mg/mg 10-[address] [facility] Work Phone: Laboratory - Hematology and Cell countson 02-17-2022 Erythrocyte distribution width (RBC) [Entitic vol] 46.3 fL 35.1-43.[address] [facility] Work Phone: Erythrocyte distribution width (RBC) [Ratio] 13.5 % 11.6-14.[address] [facility] Work Phone: Immature granulocytes/100 WBC (Bld) 1.700 % 0.0-0.[address] [facility] Work Phone: Comment on above: IG% - Immature Granu locytes (promyelocytes, myelocytes and metamyelocytes) > 1% indicates that a LEFT SHIFT is Present. MCH (RBC) [Entitic mass] 29.6 pg 27.0-32.[address] [facility] Work Phone: Nucleated RBC/100 WBC (Bld) [Ratio] 0 % 0-[address] [facility] Work Phone: MCHC Auto (RBC) [Mass/Vol]on 02-17-2022 MCHC (RBC) [Mass/Vol] 31.5 g/dL 32-36 [facility] Work Phone: No Panel Informationon 02-17 Estimated Creatinine Clearance Calc 38.80 ml/min [facility] Work Phone: Estimated GFR (MDRD) Amer 88 mL/min >[address] [facility] Work Phone: Comment on above: GFR Calc Estimated GFR (MDRD) Non-Af Amer 72 mL/min >[address] [facility] Work Phone: Comment on above: Non- GFR Calc Platelets bldon 02-17-2022 Platelets (Bld) [#/Vol] 322 10*3/uL 150-[address] [facility] Work Phone: Serum or plasma calcium manuel urement (mass/volume)on 02-17-2022 Calcium [Mass/Vol] 8.9 mg/dL 8.5-10.1 [facility] Work Phone: Serum or plasma creatinine m easurement (mass/volume)on 02-17-2022 Creatinine [Mass/Vol] 0.80 mg/dL 0.55-1.02 [facility] Work Phone: Comment on above: The validity of the calculated GFR & GFRAA in patients over 70 years has not been determined. Clinical correlation is essential. Serum or plasma urea nitroge n measurement (mass/volume)on 02-17-2022 Urea nitrogen [Mass/Vol] 12 mg/dL 7-[address] [facility] Work Phone: Thin prep Papanicolaou smear with manual screeningon 02-17-2022 Thin prep Papanicolaou smear with manual screening 6 5-[address] [facility] Work Phone: Bacteria identified Cx Nom ( U)Ordered By: Dr. Marshall on 02-15-2022 Culture, urine Aerococcus viridans. [facility] Culture, urine Escherichia coli [facility] INR in Blood by Coagulation assayOrdered By: Dr. Marshall on 02-14-2022 INR Coag (Bld) [Relative time] 1.1 {INR} [facility] Laboratory - Coagulationon 1 PT Coag (PPP) [Time] 13.6 s 11.7-14.9 [facility] Work Phone: No Panel InformationOrdered By: Dr. Marshall on 02-14-2022 13.6 SECONDS 11.7-14.[address] [facility] Basophil percentageOrdered B y: Dr. Marshall on 02-13-2022 Basophil percentage 5-10 SEEN /hpf 0-5 [facility] Bilirubin Test strip Ql (U)O rdered By: Dr. Marshall on 02-13-2022 Bilirubin Ql (U) Negative Negative [facility] Ketones Test strip Ql (U)Ord ered By: Dr. Marshall on 02-13-2022 Ketones Ql (U) Negative Negative [facility] Mucus LM Ql (Urine sed)Order ed By: Dr. Marshall on 02-13-2022 Mucus Ql (Urine sed) 0 SEEN /hpf [facility] Nitrite Test strip Ql (U)Ord ered By: Dr. Marshall on 02-13-2022 Nitrite Ql (U) Negative Negative [facility] Protein Test strip Ql (U)Ord ered By: Dr. Marshall on 02-13-2022 Protein Ql (U) Negative Negative [facility] Squamous epithelial cells de tection in urine sediment by light microscopyOrdered By: Dr. Marshall on 02-13-2022 Epithelial cells.squamous LM Ql (Urine sed) 0 SEEN /hpf 5-[address] [facility] Urine blood detectionOrdered By: Dr. Marshall on 02-13-2022 RBC Ql (U) 10 /ul Negative [facility] RBC Ql (U) 0 SEEN /hpf 0-[address] [facility] Urine clarityOrdered By: Dr. Marshall on 02-13-2022 Clarity (U) Clear Clear [facility] Urine color determinationOrd ered By: Dr. Marshall on 02-13-2022 Color (U) Yellow Yellow [facility] Urine glucose detectionOrder ed By: Dr. Marshall on 02-13-2022 Glucose Ql (U) Normal mg/dl Normal [facility] Urine leukocyte esterase det ection by dipstickOrdered By: Dr. Marshall on 02-13-2022 Leukocyte esterase Test strip Ql (U) 25 /ul Negative [facility] Urine pHOrdered By: Dr. Marshall on 02-13-2022 pH (U) 7.0 [pH] 5.0 - 8.[address] [facility] Urine sediment bacteria coun t by microscopy (number/high power field)Ordered By: Dr. Marshall on 02-13-2022 Bacteria LM.HPF (Urine sed) [#/Area] 2 /[HPF] None Seen [facility] Urine specific gravity measu rementOrdered By: Dr. Marshall on 02-13-2022 Specific gravity (U) [Rel density] 1.010 1.002-1.[address] [facility] Urobilinogen Auto test strip Ql (U)Ordered By: Dr. Marshall on 02-13-2022 Urobilinogen Ql (U) Normal mg/dl Normal [facility] Absolute lymphocyte countOrd ered By: Dr. Marshall on 02-12-2022 Lymphocytes Auto (Unsp spec) [#/Vol] 2.02 10*3/uL 0.83-4.[address] [facility] Basophil percentageOrdered B y: Dr. Marshall on 02-12-2022 Basophil percentage 91 mg/dL 74-106 [facility] Basophil percentage 133 mmol/L 136-145 [facility] Basophil percentage 4.7 mmol/L 3.5-5.1 [facility] Basophil percentage 96 mmol/L 98-107 [facility] Basophils (Bld) [#/Vol] 8.0 10*3/uL 4.4-11.[address] [facility] Basophils (Bld) [#/Vol] 4.3 10*3/uL 2.0-7.[address] [facility] Basophils/100 WBC (Bld) 1.0 % 0-1 [facility] Basophils/100 WBC (Bld) 54.0 % 47-70 [facility] Basophils/100 WBC (Bld) 6.8 % 0-5 [facility] Basophil percentageon 2021 Chloride [Moles/Vol] 96 mmol/L 98-107 [facility] Work Phone: [phone] Eosinophils/100 WBC (Bld) 6.8 % 0-[address] [facility] Work Phone: [phone] Glucose [Mass/Vol] 91 mg/dL 74-106 [facility] Work Phone: [phone] Neutrophils (Bld) [#/Vol] 4.3 10*3/uL 2.0-7.[address] [facility] Work Phone: [phone] Neutrophils/100 WBC (Bld) 54.0 % 47-[address] [facility] Work Phone: [phone] Potassium [Moles/Vol] 4.7 mmol/L 3.5-5.1 [facility] Work Phone: [phone] Sodium [Moles/Vol] 133 mmol/L 136-145 [facility] Work Phone: [phone] WBC (Bld) [#/Vol] 8.0 10*3/uL 4.4-11.0 [facility] Work Phone: [phone] Blood erythrocytes count (nu mber/volume)Ordered By: Dr. Marshall on 02-12-2022 RBC (Bld) [#/Vol] 4.07 10*6/uL 4.2-5.4 [facility] Blood hemoglobin measurement (mass/volume)Ordered By: Dr. Marshall on 02-12-2022 Hemoglobin (Bld) [Mass/Vol] 12.0 g/dL 12.0-15.[address] [facility] Blood lymphocytes/100 leukoc ytesOrdered By: Dr. Marshall on 02-12-2022 Lymphocytes/100 WBC (Bld) 25.1 % 19-[address] [facility] Blood monocytes/100 leukocyt esOrdered By: Dr. Marshall on 02-12-2022 Monocytes/100 WBC (Bld) 10.2 % 0-10 [facility] Blood platelet mean volumeOr dered By: Dr. Marshall on 02-12-2022 Platelet mean volume (Bld) [Entitic vol] 9.2 fL 6.2-12.[address] [facility] Determination of erythrocyte mean corpuscular volume (MCV)Ordered By: Dr. Marshall on 02-12-2022 MCV (RBC) [Entitic vol] 93.9 fL 81-99 [facility] Hematocrit Auto (Bld) [Volum e fraction]Ordered By: Dr. Marshall on 02-12-2022 Hematocrit (Bld) [Volume fraction] 38.2 % 37-[address] [facility] Laboratory - Chemistry and C hemistry - challengeon 02-12-2022 CO2 [Moles/Vol] 33.0 mmol/L 21.0-32.[address] [facility] Work Phone: Urea nitrogen/Creatinine [Mass ratio] 29.8 mg/mg 10- [facility] Work Phone: Laboratory - Hematology and Cell countson 02-12-2022 Erythrocyte distribution width (RBC) [Entitic vol] 47.6 fL 35.1-43.[address] [facility] Work Phone: Erythrocyte distribution width (RBC) [Ratio] 13.7 % 11.6-14.[address] [facility] Work Phone: Immature granulocytes/100 WBC (Bld) 2.900 % 0.0-0.[address] [facility] Work Phone: Comment on above: IG% - Immature Granu locytes (promyelocytes, myelocytes and metamyelocytes) > 1% indicates that a LEFT SHIFT is Present. MCH (RBC) [Entitic mass] 29.5 pg 27.0-32.[address] [facility] Work Phone: Nucleated RBC/100 WBC (Bld) [Ratio] 0 % 0-[address] [facility] Work Phone: MCHC Auto (RBC) [Mass/Vol]Or dered By: Dr. Marshall on 02-12-2022 MCHC (RBC) [Mass/Vol] 31.4 g/dL 32-36 [facility] No Panel Informationon 02-12 Estimated Creatinine Clearance Calc 36.95 ml/min [facility] Work Phone: Estimated GFR (MDRD) Amer 83 mL/min >[address] [facility] Work Phone: Comment on above: GFR Calc Estimated GFR (MDRD) Non-Af Amer 68 mL/min >[address] [facility] Work Phone: Comment on above: Non- GFR Calc No Panel InformationOrdered By: Dr. Marshall on 02-12-2022 29.5 pg 27.0-32.[address] [facility] 13.7 % 11.6-14.[address] [facility] 47.6 fl 35.1-43.[address] [facility] 2.900 % 0.0-0.[address] [facility] 0 % 0-[address] [facility] 68 mL/min >[address] [facility] 83 mL/min >[address] [facility] 36.95 ml/min [facility] 29.8 RATIO 10-[address] [facility] 33.0 mmol/L 21.0-32.[address] [facility] Platelets bldOrdered By: Dr. Marshall on 02-12-2022 Platelets (Bld) [#/Vol] 382 10*3/uL 150-[address] [facility] Serum or plasma calcium manuel urement (mass/volume)Ordered By: Dr. Marshall on 02-12-2022 Calcium [Mass/Vol] 9.5 mg/dL 8.5-10.1 [facility] Serum or plasma creatinine m easurement (mass/volume)Ordered By: Dr. Marshall on 02-12-2022 Creatinine [Mass/Vol] 0.84 mg/dL 0.55-1.02 [facility] Comment on above: The validity of the calculated GFR & GFRAA in patients over 70 years has not been determined. Clinical correlation is essential. Serum or plasma urea nitroge n measurement (mass/volume)Ordered By: Dr. Marshall on 02-12-2022 Urea nitrogen [Mass/Vol] 25 mg/dL 7-[address] [facility] Thin prep Papanicolaou smear with manual screeningOrdered By: Dr. Marshall on 02-12-2022 Thin prep Papanicolaou smear with manual screening 4 5-[address] [facility] Absolute lymphocyte countOrd ered By: Dr. Evans on 02-11-2022 Lymphocytes Auto (Unsp spec) [#/Vol] 1.85 10*3/uL 0.83-4.[address] [facility] Basophil percentageOrdered B y: Dr. Evans on 02-11-2022 Basophil percentage 136 mg/dL 74-106 [facility] Basophil percentage 136 mmol/L 136-145 [facility] Basophil percentage 4.0 mmol/L 3.5-5.1 [facility] Basophil percentage 96 mmol/L 98-107 [facility] Basophils (Bld) [#/Vol] 8.9 10*3/uL 4.4-11.[address] [facility] Basophils (Bld) [#/Vol] 5.7 10*3/uL 2.0-7.[address] [facility] Basophils/100 WBC (Bld) 0.8 % 0-1 [facility] Basophils/100 WBC (Bld) 64.1 % 47-70 [facility] Basophils/100 WBC (Bld) 5.4 % 0-5 [facility] Basophil percentageon 2021 Chloride [Moles/Vol] 96 mmol/L 98-107 [facility] Work Phone: Eosinophils/100 WBC (Bld) 5.4 % 0-[address] [facility] Work Phone: Glucose [Mass/Vol] 136 mg/dL 74-106 [facility] Work Phone: Comment on above: Fasting Glucose resu lt greater than or equal to 126 mg/dL suggests DIABETES MELLITUS per A.D.A. criteria. Neutrophils (Bld) [#/Vol] 5.7 10*3/uL 2.0-7.[address] [facility] Work Phone: Neutrophils/100 WBC (Bld) 64.1 % 47-[address] [facility] Work Phone: Potassium [Moles/Vol] 4.0 mmol/L 3.5-5.1 [facility] Work Phone: [phone] Sodium [Moles/Vol] 136 mmol/L 136-145 [facility] Work Phone: WBC (Bld) [#/Vol] 8.9 10*3/uL 4.4-11.0 [facility] Work Phone: Blood erythrocytes count (nu mber/volume)Ordered By: Dr. Evans on 02-11-2022 RBC (Bld) [#/Vol] 4.48 10*6/uL 4.2-5.4 [facility] Blood hemoglobin measurement (mass/volume)Ordered By: Dr. Evans on 02-11-2022 Hemoglobin (Bld) [Mass/Vol] 13.2 g/dL 12.0-15.[address] [facility] Blood lymphocytes/100 leukoc ytesOrdered By: Dr. Evans on 02-11-2022 Lymphocytes/100 WBC (Bld) 20.9 % 19-[address] [facility] Blood monocytes/100 leukocyt esOrdered By: Dr. Evans on 02-11-2022 Monocytes/100 WBC (Bld) 6.8 % 0-10 [facility] Blood platelet mean volumeOr dered By: Dr. Evans on 02-11-2022 Platelet mean volume (Bld) [Entitic vol] 9.4 fL 6.2-12.[address] [facility] COVID-19 virus antigen assay Ordered By: Dr. Evans on 02-11-2022 SARS-CoV-2 (COVID-19) Ag IA.rapid Ql (Resp) [facility] Determination of erythrocyte mean corpuscular volume (MCV)Ordered By: Dr. Evans on 02-11-2022 MCV (RBC) [Entitic vol] 95.3 fL 81-99 [facility] Hematocrit Auto (Bld) [Volum e fraction]Ordered By: Dr. Evans on 02-11-2022 Hematocrit (Bld) [Volume fraction] 42.7 % 37-[address] [facility] INR in Blood by Coagulation assayOrdered By: Dr. Evans on 02-11-2022 INR Coag (Bld) [Relative time] 1.2 {INR} [facility] Laboratory - Chemistry and C hemistry - challengeon 02-11-2022 CO2 [Moles/Vol] 32.0 mmol/L 21.0-32.[address] [facility] Work Phone: Magnesium [Mass/Vol] 2.3 mg/dL 1.6-2.6 [facility] Work Phone: Urea nitrogen/Creatinine [Mass ratio] 28.0 mg/mg 10-[address] [facility] Work Phone: Laboratory - Coagulationon 1 PT Coag (PPP) [Time] 14.6 s 11.7-14.9 [facility] Work Phone: Laboratory - Hematology and Cell countson 02-11-2022 Erythrocyte distribution width (RBC) [Entitic vol] 48.5 fL 35.1-43.[address] [facility] Work Phone: Erythrocyte distribution width (RBC) [Ratio] 13.7 % 11.6-14.[address] [facility] Work Phone: Immature granulocytes/100 WBC (Bld) 2.000 % 0.0-0.[address] [facility] Work Phone: Comment on above: IG% - Immature Granu locytes (promyelocytes, myelocytes and metamyelocytes) > 1% indicates that a LEFT SHIFT is Present. MCH (RBC) [Entitic mass] 29.5 pg 27.0-32.[address] [facility] Work Phone: Nucleated RBC/100 WBC (Bld) [Ratio] 0 % 0-[address] [facility] Work Phone: MCHC Auto (RBC) [Mass/Vol]Or dered By: Dr. Evans on 02-11-2022 MCHC (RBC) [Mass/Vol] 30.9 g/dL 32-36 [facility] No Panel Informationon 02-11 Estimated Creatinine Clearance Calc 33.37 ml/min [facility] Work Phone: Estimated GFR (MDRD) Amer 74 mL/min >[address] [facility] Work Phone: Comment on above: GFR Calc Estimated GFR (MDRD) Non-Af Amer 61 mL/min >[address] [facility] Work Phone: [phone] Comment on above: Non- GFR Calc No Panel InformationOrdered By: Dr. Evans on 02-11-2022 29.5 pg 27.0-32.[address] [facility] 13.7 % 11.6-14.[address] [facility] 48.5 fl 35.1-43.[address] [facility] 2.000 % 0.0-0.[address] [facility] 0 % 0-[address] [facility] 14.6 SECONDS 11.7-14.[address] [facility] 61 mL/min >[address] [facility] 74 mL/min >[address] [facility] 33.37 ml/min [facility] 28.0 RATIO 10-[address] [facility] 2.3 mg/dL 1.6-2.[address] [facility] 32.0 mmol/L 21.0-32.[address] [facility] Platelets bldOrdered By: Dr. Evans on 02-11-2022 Platelets (Bld) [#/Vol] 418 10*3/uL 150-[address] [facility] Serum or plasma calcium manuel urement (mass/volume)Ordered By: Dr. Evans on 02-11-2022 Calcium [Mass/Vol] 9.9 mg/dL 8.5-10.1 [facility] Serum or plasma creatinine m easurement (mass/volume)Ordered By: Dr. Evans on 02-11-2022 Creatinine [Mass/Vol] 0.93 mg/dL 0.55-1.02 [facility] Comment on above: The validity of the calculated GFR & GFRAA in patients over 70 years has not been determined. Clinical correlation is essential. Serum or plasma urea nitroge n measurement (mass/volume)Ordered By: Dr. Evans on 02-11-2022 Urea nitrogen [Mass/Vol] 26 mg/dL 7-[address] [facility] Thin prep Papanicolaou smear with manual screeningOrdered By: Dr. Evans on 02-11-2022 Thin prep Papanicolaou smear with manual screening 8 5-[address] [facility] Absolute lymphocyte counton 02-09-2022 Lymphocytes Auto (Unsp spec) [#/Vol] 1.65 10*3/uL 0.83-4.[address] [facility] Work Phone: Basophil percentageOrdered B y: Dr. Hendrickson on 02-09-2022 Basophil percentage 0 SEEN /hpf 0-5 [facility] Basophil percentage 7.1 g/dL 6.4-8.2 [facility] Basophil percentage 0.30 mg/dL 0.20-1.00 [facility] Basophil percentageon 2021 Basophils/100 WBC (Bld) 0.6 % 0-1 [facility] Work Phone: [phone] Bilirubin [Mass/Vol] 0.30 mg/dL 0.20-1.00 [facility] Work Phone: [phone] Comment on above: For patients on eltr ombopag therapy, use of Dimension [place] TBIL is not recommended. Chloride [Moles/Vol] 97 mmol/L 98-107 [facility] Work Phone: Eosinophils/100 WBC (Bld) 3.1 % 0-[address] [facility] Work Phone: Glucose [Mass/Vol] 111 mg/dL 74-106 [facility] Work Phone: Comment on above: Fasting Glucose resu lt from 100 to 125 mg/dL suggests IMPAIRED HOMEOSTASIS per A.D.A. criteria. Neutrophils (Bld) [#/Vol] 5.8 10*3/uL 2.0-7.[address] [facility] Work Phone: Neutrophils/100 WBC (Bld) 63.6 % 47-[address] [facility] Work Phone: [phone] Potassium [Moles/Vol] 4.8 mmol/L 3.5-5.1 [facility] Work Phone: [phone] Protein [Mass/Vol] 7.1 g/dL 6.4-8.2 [facility] Work Phone: [phone] Sodium [Moles/Vol] 136 mmol/L 136-145 [facility] Work Phone: [phone] WBC (Bld) [#/Vol] 9.1 10*3/uL 4.4-11.0 [facility] Work Phone: Bilirubin Test strip Ql (U)O rdered By: Dr. Hendrickson on 02-09-2022 Bilirubin Ql (U) Negative Negative [facility] Blood erythrocytes count (nu mber/volume)on 02-09-2022 RBC (Bld) [#/Vol] 4.14 10*6/uL 4.2-5.4 [facility] Work Phone: Blood hemoglobin measurement (mass/volume)on 02-09-2022 Hemoglobin (Bld) [Mass/Vol] 12.3 g/dL 12.0-15.[address] [facility] Work Phone: Blood lymphocytes/100 leukoc yteson 02-09-2022 Lymphocytes/100 WBC (Bld) 18.2 % 19-[address] [facility] Work Phone: Blood monocytes/100 leukocyt eson 02-09-2022 Monocytes/100 WBC (Bld) 12.6 % 0-10 [facility] Work Phone: Blood platelet mean volumeon 02-09-2022 Platelet mean volume (Bld) [Entitic vol] 9.2 fL 6.2-12.[address] [facility] Work Phone: Determination of erythrocyte mean corpuscular volume (MCV)on 02-09-2022 MCV (RBC) [Entitic vol] 95.7 fL 81-99 [facility] Work Phone: Hematocrit Auto (Bld) [Volum e fraction]on 02-09-2022 Hematocrit (Bld) [Volume fraction] 39.6 % 37-[address] [facility] Work Phone: Ketones Test strip Ql (U)Ord ered By: Dr. Hendrickson on 02-09-2022 Ketones Ql (U) Negative Negative [facility] Laboratory - Chemistry and C hemistry - challengeon 02-09-2022 ALP [Catalytic activity/Vol] 62 U/L 45-[address] [facility] Work Phone: ALT [Catalytic activity/Vol] 18 U/L 13-[address] [facility] Work Phone: CO2 [Moles/Vol] 33.0 mmol/L 21.0-32.[address] [facility] Work Phone: Globulin (S) [Mass/Vol] 4.0 g/dL 2.2-4.2 [facility] Work Phone: Urea nitrogen/Creatinine [Mass ratio] 28.6 mg/mg 10-[address] [facility] Work Phone: Laboratory - Hematology and Cell countson 02-09-2022 Erythrocyte distribution width (RBC) [Entitic vol] 49.4 fL 35.1-43.[address] [facility] Work Phone: Erythrocyte distribution width (RBC) [Ratio] 14.1 % 11.6-14.[address] [facility] Work Phone: Immature granulocytes/100 WBC (Bld) 1.900 % 0.0-0.[address] [facility] Work Phone: Comment on above: IG% - Immature Granu locytes (promyelocytes, myelocytes and metamyelocytes) > 1% indicates that a LEFT SHIFT is Present. MCH (RBC) [Entitic mass] 29.7 pg 27.0-32.[address] [facility] Work Phone: Nucleated RBC/100 WBC (Bld) [Ratio] 0 % 0-[address] [facility] Work Phone: MCHC Auto (RBC) [Mass/Vol]on 02-09-2022 MCHC (RBC) [Mass/Vol] 31.1 g/dL 32-36 [facility] Work Phone: Mucus LM Ql (Urine sed)Order ed By: Dr. Hendrickson on 02-09-2022 Mucus Ql (Urine sed) 0 SEEN /hpf [facility] Nitrite Test strip Ql (U)Ord ered By: Dr. Hendrickson on 02-09-2022 Nitrite Ql (U) Negative Negative [facility] No Panel Informationon 02-09 Estimated Creatinine Clearance Calc 29.56 ml/min [facility] Work Phone: Estimated GFR (MDRD) Amer 64 mL/min >[address] [facility] Work Phone: Comment on above: GFR Calc Estimated GFR (MDRD) Non-Af Amer 53 mL/min >[address] [facility] Work Phone: Comment on above: Non- GFR Calc No Panel InformationOrdered By: Dr. Hendrickson on 02-09-2022 4.0 g/dL 2.2-4.[address] [facility] 62 U/L 45-[address] [facility] 18 U/L 13-[address] [facility] Platelets bldon 02-09-2022 Platelets (Bld) [#/Vol] 385 10*3/uL 150-[address] [facility] Work Phone: Protein Test strip Ql (U)Ord ered By: Dr. Hendrickson on 02-09-2022 Protein Ql (U) Negative Negative [facility] Serum or plasma albumin manuel urement (mass/volume)Ordered By: Dr. Hendrickson on 02-09-2022 Albumin [Mass/Vol] 3.1 g/dL 3.2-5.0 [facility] Serum or plasma albumin/glob ulin mass ratioOrdered By: Dr. Hendrickson on 02-09-2022 Albumin/Globulin [Mass ratio] 0.8 {ratio} 0.9-2.[address] [facility] Serum or plasma calcium manuel urement (mass/volume)on 02-09-2022 Calcium [Mass/Vol] 9.1 mg/dL 8.5-10.1 [facility] Work Phone: Serum or plasma creatinine m easurement (mass/volume)on 02-09-2022 Creatinine [Mass/Vol] 1.05 mg/dL 0.55-1.02 [facility] Work Phone: Comment on above: The validity of the calculated GFR & GFRAA in patients over 70 years has not been determined. Clinical correlation is essential. Serum or plasma urea nitroge n measurement (mass/volume)on 02-09-2022 Urea nitrogen [Mass/Vol] 30 mg/dL 7-[address] [facility] Work Phone: Squamous epithelial cells de tection in urine sediment by light microscopyOrdered By: Dr. Hendrickson on 02-09-2022 Epithelial cells.squamous LM Ql (Urine sed) 0-5 SEEN /hpf 5-[address] [facility] Thin prep Papanicolaou smear with manual screeningOrdered By: Dr. Hendrickson on 02-09-2022 Thin prep Papanicolaou smear with manual screening 16 U/L 15-[address] [facility] Thin prep Papanicolaou smear with manual screeningon 02-09-2022 Thin prep Papanicolaou smear with manual screening 6 5-[address] [facility] Work Phone: Urine blood detectionOrdered By: Dr. Hendrickson on 02-09-2022 RBC Ql (U) Negative Negative [facility] RBC Ql (U) 0 SEEN /hpf 0-[address] [facility] Urine clarityOrdered By: Dr. Hendrickson on 02-09-2022 Clarity (U) Clear Clear [facility] Urine color determinationOrd ered By: Dr. Hendrickson on 02-09-2022 Color (U) Straw Yellow [facility] Urine glucose detectionOrder ed By: Dr. Hendrickson on 02-09-2022 Glucose Ql (U) Normal mg/dl Normal [facility] Urine leukocyte esterase det ection by dipstickOrdered By: Dr. Hendrickson on 02-09-2022 Leukocyte esterase Test strip Ql (U) Negative Negative [facility] Urine pHOrdered By: Dr. Heavenly freeman on 02-09-2022 pH (U) 7.0 [pH] 5.0 - 8.[address] [facility] Urine sediment bacteria coun t by microscopy (number/high power field)Ordered By: Dr. Hendrickson on 02-09-2022 Bacteria LM.HPF (Urine sed) [#/Area] RARE /hpf None Seen [facility] Urine specific gravity measu rementOrdered By: Dr. Hendrickson on 02-09-2022 Specific gravity (U) [Rel density] 1.005 1.002-1.[address] [facility] Urobilinogen Auto test strip Ql (U)Ordered By: Dr. Hendrickson on 02-09-2022 Urobilinogen Ql (U) Normal mg/dl Normal [facility] Serum or plasma cortisol fran surement (mass/volume)on 12-20-2021 Cortisol [Mass/Vol] 6.90 ug/dL 3.44-22.45 [facility] Work Phone: Comment on above: Adult (AM) 5.27 - 22 .45 ug/dL Adult (PM) 3.44 - 16.76 ug/dLPlease note revised CORTISOL reference range effective 2019. Absolute lymphocyte counton 12-18-2021 Lymphocytes Auto (Unsp spec) [#/Vol] 2.24 10*3/uL 0.83-4.[address] [facility] Work Phone: Basophil percentageon 2021 Basophils/100 WBC (Bld) 0.7 % 0-1 [facility] Work Phone: Bilirubin [Mass/Vol] 0.40 mg/dL 0.20-1.00 [facility] Work Phone: Comment on above: For patients on eltr ombopag therapy, use of Dimension [place] TBIL is not recommended. Chloride [Moles/Vol] 102 mmol/L 98-107 [facility] Work Phone: Eosinophils/100 WBC (Bld) 1.7 % 0-[address] [facility] Work Phone: Glucose [Mass/Vol] 104 mg/dL 74-106 [facility] Work Phone: Comment on above: Fasting Glucose resu lt from 100 to 125 mg/dL suggests IMPAIRED HOMEOSTASIS per A.D.A. criteria. Neutrophils (Bld) [#/Vol] 6.7 10*3/uL 2.0-7.[address] [facility] Work Phone: Neutrophils/100 WBC (Bld) 66.9 % 47-[address] [facility] Work Phone: Potassium [Moles/Vol] 4.4 mmol/L 3.5-5.1 [facility] Work Phone: Protein [Mass/Vol] 7.6 g/dL 6.4-8.2 [facility]: Sodium [Moles/Vol] 137 mmol/L 136-145 [facility] Work Phone: WBC (Bld) [#/Vol] 10.1 10*3/uL 4.4-11.0 [facility]: Blood erythrocytes count (nu mber/volume)on 12-18-2021 RBC (Bld) [#/Vol] 4.04 10*6/uL 4.2-5.4 [facility] Work Phone: Blood hemoglobin measurement (mass/volume)on 12-18-2021 Hemoglobin (Bld) [Mass/Vol] 12.1 g/dL 12.0-15.[address] [facility] Work Phone: Blood lymphocytes/100 leukoc yteson 12-18-2021 Lymphocytes/100 WBC (Bld) 22.3 % 19-[address] [facility] Work Phone: Blood monocytes/100 leukocyt eson 12-18-2021 Monocytes/100 WBC (Bld) 8.0 % 0-10 [facility] Work Phone: Blood platelet mean volumeon 12-18-2021 Platelet mean volume (Bld) [Entitic vol] 9.7 fL 6.2-12.[address] [facility] Work Phone: Determination of erythrocyte mean corpuscular volume (MCV)on 12-18-2021 MCV (RBC) [Entitic vol] 91.3 fL 81-99 [facility] Work Phone: Erythrocyte sedimentation ra pieter 12-18-2021 ESR (Bld) [Velocity] 38 mm/h 0-30 [facility] Work Phone: Hematocrit Auto (Bld) [Volum e fraction]on 12-18-2021 Hematocrit (Bld) [Volume fraction] 36.9 % 37-[address] [facility] Work Phone: Iron measurement (mass/mass) on 12-18-2021 Iron (Unsp spec) [Mass/Mass] 97 ug/dL 50-[address] [facility] Work Phone: [phone] Laboratory - Chemistry and C hemistry - challengeon 12-18-2021 ALP [Catalytic activity/Vol] 56 U/L 45-[address] [facility] Work Phone: [phone] ALT [Catalytic activity/Vol] 17 U/L 13-[address] [facility] Work Phone: CO2 [Moles/Vol] 30.0 mmol/L 21.0-32.[address] [facility] Work Phone: [phone] Cobalamin (Vitamin B12) [Mass/Vol] 374 pg/mL 211-[address] [facility] Work Phone: [phone] Globulin (S) [Mass/Vol] 4.2 g/dL 2.2-4.2 [facility] Work Phone: [phone] Urea nitrogen/Creatinine [Mass ratio] 25.0 mg/mg 10-[address] [facility] Work Phone: [phone] Laboratory - Hematology and Cell countson 12-18-2021 Erythrocyte distribution width (RBC) [Entitic vol] 46.5 fL 35.1-43.[address] [facility] Work Phone: [phone] Erythrocyte distribution width (RBC) [Ratio] 13.6 % 11.6-14.[address] [facility] Work Phone: [phone] Immature granulocytes/100 WBC (Bld) 0.400 % 0.0-0.[address] [facility] Work Phone: [phone] Comment on above: IG% - Immature Granu locytes (promyelocytes, myelocytes and metamyelocytes) > 1% indicates that a LEFT SHIFT is Present. MCH (RBC) [Entitic mass] 30.0 pg 27.0-32.[address] [facility] Work Phone: [phone] Nucleated RBC/100 WBC (Bld) [Ratio] 0 % 0-[address] [facility] Work Phone: MCHC Auto (RBC) [Mass/Vol]on 12-18-2021 MCHC (RBC) [Mass/Vol] 32.8 g/dL 32-36 [facility] Work Phone: No Panel Informationon 12-18 Estimated GFR (MDRD) Amer 57 mL/min >[address] [facility] Work Phone: Comment on above: GFR Calc Estimated GFR (MDRD) Non-Af Amer 47 mL/min >[address] [facility] Work Phone: Comment on above: Non- GFR Calc Thyroid Stimulating Hormone (TSH) 0.98 uIU/mL 0.358-3.[address] [facility] Work Phone: Vitamin D 25-Hydroxy 76.0 ng/mL [facility] Work Phone: Comment on above: Vitamin D 25(OH) Sta tus Range Deficiency <20 ng/mL (50nmol/L) Insufficiency 20 - 30 ng/mL (50 - 75 nmol/L) Sufficiency 30 - 100 ng/mL (75 - 250 nmol/L) Toxicity >100 ng/mL (>250 nmol/L) Platelets bldon 12-18-2021 Platelets (Bld) [#/Vol] 333 10*3/uL 150-[address] [facility] Work Phone: Serum or plasma albumin manuel urement (mass/volume)on 12-18-2021 Albumin [Mass/Vol] 3.4 g/dL 3.2-5.0 [facility] Work Phone: Serum or plasma albumin/glob ulin mass ratioon 12-18-2021 Albumin/Globulin [Mass ratio] 0.8 {ratio} 0.9-2.[address] [facility] Work Phone: Serum or plasma calcium manuel urement (mass/volume)on 12-18-2021 Calcium [Mass/Vol] 9.5 mg/dL 8.5-10.1 [facility] Work Phone: Serum or plasma cortisol fran surement (mass/volume)on 12-18-2021 Cortisol [Mass/Vol] 2.80 ug/dL 3.44-22.45 [facility] Work Phone: Comment on above: Adult (AM) 5.27 - 22 .45 ug/dL Adult (PM) 3.44 - 16.76 ug/dLPlease note revised CORTISOL reference range effective 2019. Serum or plasma creatinine m easurement (mass/volume)on 12-18-2021 Creatinine [Mass/Vol] 1.16 mg/dL 0.55-1.02 [facility] Work Phone: Comment on above: The validity of the calculated GFR & GFRAA in patients over 70 years has not been determined. Clinical correlation is essential. Serum or plasma ferritin fran surement (mass/volume)on 12-18-2021 Ferritin [Mass/Vol] 56 ng/mL [facility] Work Phone: Serum or plasma urea nitroge n measurement (mass/volume)on 12-18-2021 Urea nitrogen [Mass/Vol] 29 mg/dL 7-[address] [facility] Work Phone: Thin prep Papanicolaou smear with manual screeningon 12-18-2021 Thin prep Papanicolaou smear with manual screening 19 U/L 15-[address] [facility] Work Phone: Thin prep Papanicolaou smear with manual screening 5 5-[address] [facility] Work Phone: Serum or plasma ferritin fran surement (mass/volume)on 09-27-2021 Ferritin [Mass/Vol] 39 ng/mL [facility] Work Phone: Absolute lymphocyte counton 07-27-2021 Lymphocytes Auto (Unsp spec) [#/Vol] 1.59 10*3/uL 0.83-4.[address] [facility] Work Phone: Basophil percentageon 2021 Basophils/100 WBC (Bld) 0.6 % 0-1 [facility] Work Phone: Eosinophils/100 WBC (Bld) 3.6 % 0-[address] [facility] Work Phone: Neutrophils (Bld) [#/Vol] 3.9 10*3/uL 2.0-7.[address] [facility] Work Phone: Neutrophils/100 WBC (Bld) 60.7 % 47-[address] [facility] Work Phone: WBC (Bld) [#/Vol] 6.4 10*3/uL 4.4-11.[facility] Blood erythrocytes count (nu mber/volume)on 07-27-2021 RBC (Bld) [#/Vol] 3.84 10*6/uL 4.2-5.4 [facility]: Blood hemoglobin measurement (mass/volume)on 07-27-2021 Hemoglobin (Bld) [Mass/Vol] 11.7 g/dL 12.0-15.[address] [facility] Work Phone: Blood lymphocytes/100 leukoc yteson 07-27-2021 Lymphocytes/100 WBC (Bld) 24.8 % 19-[address] [facility] Work Phone: Blood monocytes/100 leukocyt eson 07-27-2021 Monocytes/100 WBC (Bld) 9.7 % 0-10 [facility] Work Phone: Blood platelet mean volumeon 07-27-2021 Platelet mean volume (Bld) [Entitic vol] 10.4 fL 6.2-12.[address] [facility] Work Phone: Determination of erythrocyte mean corpuscular volume (MCV)on 07-27-2021 MCV (RBC) [Entitic vol] 92.7 fL 81-99 [facility] Work Phone: Hematocrit Auto (Bld) [Volum e fraction]on 07-27-2021 Hematocrit (Bld) [Volume fraction] 35.6 % 37-[address] [facility] Work Phone: Laboratory - Hematology and Cell countson 07-27-2021 Erythrocyte distribution width (RBC) [Entitic vol] 46.9 fL 35.1-43.[address] [facility] Work Phone: Erythrocyte distribution width (RBC) [Ratio] 13.8 % 11.6-14.[address] [facility] Work Phone: Immature granulocytes/100 WBC (Bld) 0.600 % 0.0-0.[address] [facility] Work Phone: Comment on above: IG% - Immature Granu locytes (promyelocytes, myelocytes and metamyelocytes) > 1% indicates that a LEFT SHIFT is Present. MCH (RBC) [Entitic mass] 30.5 pg 27.0-32.[address] [facility] Work Phone: Nucleated RBC/100 WBC (Bld) [Ratio] 0 % 0-[address] [facility] Work Phone: MCHC Auto (RBC) [Mass/Vol]on 07-27-2021 MCHC (RBC) [Mass/Vol] 32.9 g/dL 32-36 [facility] Work Phone: Comment on above: Delta: 30.9 on 07/25 No Panel Informationon 07-27 Ionized Calcium 4.8 mg/dL 4.5-5.[address] [facility] Work Phone: Comment on above: Performed at: [address] [id number] Director: Arjun Pisano PhD, Phone: [phone] Parathyroid Hormone (Intact) 109.8 pg/mL 18.4-80.[address] [facility] Work Phone: Vitamin D 25-Hydroxy 69.9 ng/mL [facility] Work Phone: Comment on above: Vitamin D 25(OH) Sta tus Range Deficiency <20 ng/mL (50nmol/L) Insufficiency 20 - 30 ng/mL (50 - 75 nmol/L) Sufficiency 30 - 100 ng/mL (75 - 250 nmol/L) Toxicity >100 ng/mL (>250 nmol/L) Platelets bldon 07-27-2021 Platelets (Bld) [#/Vol] 280 10*3/uL 150-[address] [facility] Work Phone: [phone] Serum or plasma C reactive p rotein measurement (mass/volume)on 07-27-2021 CRP [Mass/Vol] 36.30 mg/L 0.0-3.[address] [facility] Work Phone: Comment on above: C-Reactive Protein ( CRP) provides useful information for thediagnosis, therapy and monitoring of inflammatory processesand associated diseases. For the evaluation of Relative Riskfor Cardiovascular Disease, a High Sensitivity CRP (HSCRP)should be ordered. Absolute lymphocyte counton 07-25-2021 Lymphocytes Auto (Unsp spec) [#/Vol] 1.76 10*3/uL 0.83-4.[address] [facility] Work Phone: [phone] Basophil percentageon 2021 Basophils/100 WBC (Bld) 0.5 % 0-1 [facility] Work Phone: [phone] Chloride [Moles/Vol] 106 mmol/L 98-107 [facility] Work Phone: [phone] Eosinophils/100 WBC (Bld) 2.9 % 0-[address] [facility] Work Phone: [phone] Glucose [Mass/Vol] 92 mg/dL 74-106 [facility] Work Phone: Neutrophils (Bld) [#/Vol] 3.3 10*3/uL 2.0-7.[address] [facility] Work Phone: Neutrophils/100 WBC (Bld) 56.0 % 47-[address] [facility] Work Phone: [phone] Potassium [Moles/Vol] 3.9 mmol/L 3.5-5.1 [facility] Work Phone: [phone] Sodium [Moles/Vol] 139 mmol/L 136-145 [facility] Work Phone: WBC (Bld) [#/Vol] 5.9 10*3/uL 4.4-11.0 [facility]: Blood erythrocytes count (nu mber/volume)on 07-25-2021 RBC (Bld) [#/Vol] 3.30 10*6/uL 4.2-5.4 [facility] Work [facility]: Blood hemoglobin measurement (mass/volume)on 07-25-2021 Hemoglobin (Bld) [Mass/Vol] 9.5 g/dL 12.0-15.[address] [facility] Work Phone: Blood lymphocytes/100 leukoc yteson 07-25-2021 Lymphocytes/100 WBC (Bld) 29.9 % 19-[address] [facility] Work Phone: Blood monocytes/100 leukocyt eson 07-25-2021 Monocytes/100 WBC (Bld) 10.5 % 0-10 [facility] Work Phone: Blood platelet mean volumeon 07-25-2021 Platelet mean volume (Bld) [Entitic vol] 9.7 fL 6.2-12.[address] [facility] Work Phone: Determination of erythrocyte mean corpuscular volume (MCV)on 07-25-2021 MCV (RBC) [Entitic vol] 93.0 fL 81-99 [facility] Work Phone: Erythrocyte sedimentation ra pieter 07-25-2021 ESR (Bld) [Velocity] 12 mm/h 0-30 [facility] Phone: Hematocrit Auto (Bld) [Volum e fraction]on 07-25-2021 Hematocrit (Bld) [Volume fraction] 30.7 % 37-[address] [facility] Work Phone: INR in Blood by Coagulation assayon 07-25-2021 INR Coag (Bld) [Relative time] 4.1 {INR} [facility] Work Phone: Comment on above: CRITICAL VALUE VERIF IED. CALLED TO David HERNANDEZ RN [id number]/ [id number] [address].RESULTS READ BACK BY SAME. Laboratory - Chemistry and C hemistry - challengeon 07-25-2021 CO2 [Moles/Vol] 27.0 mmol/L 21.0-32.[address] [facility] Work Phone: Urea nitrogen/Creatinine [Mass ratio] 23.7 mg/mg 10-[address] [facility] Work Phone: Laboratory - Coagulationon 0 07-25-2021 PT Coag (PPP) [Time] 39.3 s 11.7-14.9 [facility] Work Phone: Laboratory - Hematology and Cell countson 07-25-2021 Erythrocyte distribution width (RBC) [Entitic vol] 47.7 fL 35.1-43.[address] [facility] Work Phone: Erythrocyte distribution width (RBC) [Ratio] 14.1 % 11.6-14.[address] [facility] Work Phone: Immature granulocytes/100 WBC (Bld) 0.200 % 0.0-0.[address] [facility] Work Phone: Comment on above: IG% - Immature Granu locytes (promyelocytes, myelocytes and metamyelocytes) > 1% indicates that a LEFT SHIFT is Present. MCH (RBC) [Entitic mass] 28.8 pg 27.0-32.[address] [facility] Work Phone: Nucleated RBC/100 WBC (Bld) [Ratio] 0 % 0-[address] [facility] Work Phone: MCHC Auto (RBC) [Mass/Vol]on 07-25-2021 MCHC (RBC) [Mass/Vol] 30.9 g/dL 32-36 [facility] Work Phone: No Panel Informationon 07-25 Estimated Creatinine Clearance Calc 32.00 ml/min [facility] Work Phone: Estimated GFR (MDRD) Amer 70 mL/min >[address] [facility] Work Phone: Comment on above: GFR Calc Estimated GFR (MDRD) Non-Af Amer 58 mL/min >[address] [facility] Work Phone: Comment on above: Non- GFR Calc Platelets bldon 07-25-2021 Platelets (Bld) [#/Vol] 213 10*3/uL 150-[address] [facility] Work Phone: Serum or plasma C reactive p rotein measurement (mass/volume)on 07-25-2021 CRP [Mass/Vol] 67.00 mg/L 0.0-3.[address] [facility] Work Phone: Comment on above: C-Reactive Protein ( CRP) provides useful information for thediagnosis, therapy and monitoring of inflammatory processesand associated diseases. For the evaluation of Relative Riskfor Cardiovascular Disease, a High Sensitivity CRP (HSCRP)should be ordered. Serum or plasma calcium manuel urement (mass/volume)on 07-25-2021 Calcium [Mass/Vol] 7.6 mg/dL 8.5-10.1 [facility] Work Phone: Serum or plasma creatinine m easurement (mass/volume)on 07-25-2021 Creatinine [Mass/Vol] 0.97 mg/dL 0.55-1.02 [facility] Work Phone: Comment on above: The validity of the calculated GFR & GFRAA in patients over 70 years has not been determined. Clinical correlation is essential. Serum or plasma urea nitroge n measurement (mass/volume)on 07-25-2021 Urea nitrogen [Mass/Vol] 23 mg/dL 7-[address] [facility] Work Phone: Thin prep Papanicolaou smear with manual screeningon 07-25-2021 Thin prep Papanicolaou smear with manual screening 6 5-[address] [facility] Work Phone: Activated partial thrombopla stin time (aPTT) in platelet poor plasma by coagulation aon 07-24-2021 aPTT Coag (PPP) [Time] 53.1 s 24.1-36.2 [facility] Work Phone: Basophil percentageon 2021 Bilirubin [Mass/Vol] 0.40 mg/dL 0.20-1.00 [facility] Work Phone: Comment on above: For patients on eltr ombopag therapy, use of Dimension [place] TBIL is not recommended. Lactate [Moles/Vol] 0.7 mmol/L 0.4-2.0 [facility] Work Phone: Protein [Mass/Vol] 7.4 g/dL 6.4-8.2 [facility] Work Phone: Direct bilirubinon 2 Bilirubin.direct [Mass/Vol] 0.05 mg/dL 0.00-0.[address] [facility] Work Phone: Hemoglobin.gastrointestinal Ql ([place] fld)on 07-24-2021 Gastric Occult Blood Positive [facility] Work Phone: Laboratory - Chemistry and C hemistry - challengeon 07-24-2021 ALP [Catalytic activity/Vol] 59 U/L 45-[address] [facility] Work Phone: ALT [Catalytic activity/Vol] 21 U/L 13-[address] [facility] Work Phone: Globulin (S) [Mass/Vol] 4.0 g/dL 2.2-4.2 [facility] Work Phone: Lipase [Catalytic activity/Vol] 105 U/L 73-[address] [facility] Work Phone: Serum or plasma albumin manuel urement (mass/volume)on 07-24-2021 Albumin [Mass/Vol] 3.4 g/dL 3.2-5.0 [facility] Work Phone: Thin prep Papanicolaou smear with manual screeningon 07-24-2021 Thin prep Papanicolaou smear with manual screening 31 U/L 15-[address] [facility] Work Phone: Absolute lymphocyte counton 06-19-2021 Lymphocytes Auto (Unsp spec) [#/Vol] 1.69 10*3/uL 0.83-4.[address] [facility] Work Phone: Basophil percentageon 2021 Basophils/100 WBC (Bld) 1.1 % 0-1 [facility] Work Phone: Bilirubin [Mass/Vol] 0.40 mg/dL 0.20-1.00 [facility] Work Phone: Comment on above: For patients on eltr ombopag therapy, use of Dimension [place] TBIL is not recommended. Chloride [Moles/Vol] 99 mmol/L 98-107 [facility] Work Phone: Eosinophils/100 WBC (Bld) 2.2 % 0-[address] [facility] Work Phone: Glucose [Mass/Vol] 93 mg/dL 74-106 [facility] Work Phone: Neutrophils (Bld) [#/Vol] 3.1 10*3/uL 2.0-7.[address] [facility] Work Phone: Neutrophils/100 WBC (Bld) 55.2 % 47-[address] [facility] Work Phone: Potassium [Moles/Vol] 4.0 mmol/L 3.5-5.1 [facility] Work Phone: Protein [Mass/Vol] 8.1 g/dL 6.4-8.2 [facility] Work Phone: Sodium [Moles/Vol] 137 mmol/L 136-145 [facility] Work Phone: WBC (Bld) [#/Vol] 5.5 10*3/uL 4.4-11.0 [facility] Work Phone: Blood erythrocytes count (nu mber/volume)on 06-19-2021 RBC (Bld) [#/Vol] 4.15 10*6/uL 4.2-5.4 [facility] Work Phone: Blood hemoglobin measurement (mass/volume)on 06-19-2021 Hemoglobin (Bld) [Mass/Vol] 11.8 g/dL 12.0-15.[address] [facility] Work Phone: Blood lymphocytes/100 leukoc yteson 06-19-2021 Lymphocytes/100 WBC (Bld) 30.6 % 19-[address] [facility] Work Phone: Blood monocytes/100 leukocyt eson 06-19-2021 Monocytes/100 WBC (Bld) 10.5 % 0-10 [facility] Work Phone: Blood platelet mean volumeon 06-19-2021 Platelet mean volume (Bld) [Entitic vol] 10.0 fL 6.2-12.[address] [facility] Work Phone: Determination of erythrocyte mean corpuscular volume (MCV)on 06-19-2021 MCV (RBC) [Entitic vol] 91.3 fL 81-99 [facility] Work Phone: Erythrocyte sedimentation ra pieter 06-19-2021 ESR (Bld) [Velocity] 47 mm/h 0-30 [facility]: Hematocrit Auto (Bld) [Volum e fraction]on 06-19-2021 Hematocrit (Bld) [Volume fraction] 37.9 % 37-[address] [facility] Work Phone: Laboratory - Chemistry and C hemistry - challengeon 06-19-2021 ALP [Catalytic activity/Vol] 59 U/L 45-[address] [facility] Work Phone: ALT [Catalytic activity/Vol] 23 U/L 13-[address] [facility] Work Phone: CO2 [Moles/Vol] 29.0 mmol/L 21.0-32.[address] [facility] Work Phone: Globulin (S) [Mass/Vol] 4.5 g/dL 2.2-4.2 [facility] Work Phone: Urea nitrogen/Creatinine [Mass ratio] 29.7 mg/mg 10-[address] [facility] Work Phone: Laboratory - Hematology and Cell countson 06-19-2021 Erythrocyte distribution width (RBC) [Entitic vol] 45.2 fL 35.1-43.[address] [facility] Work Phone: Erythrocyte distribution width (RBC) [Ratio] 13.4 % 11.6-14.[address] [facility] Work Phone: Immature granulocytes/100 WBC (Bld) 0.400 % 0.0-0.[address] [facility] Work Phone: Comment on above: IG% - Immature Granu locytes (promyelocytes, myelocytes and metamyelocytes) > 1% indicates that a LEFT SHIFT is Present. MCH (RBC) [Entitic mass] 28.4 pg 27.0-32.[address] [facility] Work Phone: Nucleated RBC/100 WBC (Bld) [Ratio] 0 % 0-[address] [facility] Work Phone: MCHC Auto (RBC) [Mass/Vol]on 06-19-2021 MCHC (RBC) [Mass/Vol] 31.1 g/dL 32-36 [facility] Work Phone: No Panel Informationon 06-19 Anti-Nuclear Antibody Screen Negative Negative [facility] Work Phone: Comment on above: Performed at: [address] [id number] Director: Arjun Pisano PhD, Phone: [phone] Estimated GFR (MDRD) Amer 72 mL/min >[address] [facility] Work Phone: Comment on above: GFR Calc Estimated GFR (MDRD) Non-Af Amer 60 mL/min >[address] [facility] Work Phone: Comment on above: Non- GFR Calc Thyroid Stimulating Hormone (TSH) 0.96 uIU/mL 0.358-3.[address] [facility] Work Phone: Platelets bldon 06-19-2021 Platelets (Bld) [#/Vol] 328 10*3/uL 150-[address] [facility] Work Phone: Serum or plasma albumin manuel urement (mass/volume)on 06-19-2021 Albumin [Mass/Vol] 3.6 g/dL 3.2-5.0 [facility] Work Phone: Serum or plasma albumin/glob ulin mass ratioon 06-19-2021 Albumin/Globulin [Mass ratio] 0.8 {ratio} 0.9-2.[address] [facility] Work Phone: Serum or plasma calcium manuel urement (mass/volume)on 06-19-2021 Calcium [Mass/Vol] 9.0 mg/dL 8.5-10.1 [facility] Work Phone: Serum or plasma creatinine m easurement (mass/volume)on 06-19-2021 Creatinine [Mass/Vol] 0.94 mg/dL 0.55-1.02 [facility] Work Phone: Comment on above: The validity of the calculated GFR & GFRAA in patients over 70 years has not been determined. Clinical correlation is essential. Serum or plasma urea nitroge n measurement (mass/volume)on 06-19-2021 Urea nitrogen [Mass/Vol] 28 mg/dL 7-[address] [facility] Work Phone: Serum rheumatoid factor dete ctionon 06-19-2021 Rheumatoid factor Ql (S) < 10.0 IU/mL <[address] [facility] Work Phone: Thin prep Papanicolaou smear with manual screeningon 06-19-2021 Thin prep Papanicolaou smear with manual screening 21 U/L 15-[address] [facility] Work Phone: Thin prep Papanicolaou smear with manual screening 9 5-[address] [facility] Work Phone: Laboratory - Microbiology an d Antimicrobial susceptibilityon 05-09-2021 SARS-CoV-2 (COVID-19) RNA RHYS+probe Ql (Unsp spec) Not detected Not Detect [facility] Work Phone: Comment on above: Normal Reference [...] Chloride [Moles/Vol] 104 mmol/L 98-107 [facility] Work Phone: Glucose [Mass/Vol] 97 mg/dL 74-106 [facility] Work Phone: Comment on above: Please note revised GLUCOSE reference range effective 2017. Potassium [Moles/Vol] 4.1 mmol/L 3.5-5.1 [facility] Work Phone: Sodium [Moles/Vol] 137 mmol/L 136-145 [facility] Work Phone: Laboratory - Chemistry and C hemistry - challengeon 05-07-2021 CO2 [Moles/Vol] 27.0 mmol/L 21.0-32.[address] [facility] Work Phone: Urea nitrogen/Creatinine [Mass ratio] 29.9 mg/mg 10-[address] [facility] Work Phone: No Panel Informationon 05-07 Estimated GFR (MDRD) Amer 73 mL/min >[address] [facility] Work Phone: Comment on above: GFR Calc Estimated GFR (MDRD) Non-Af Amer 60 mL/min >[address] [facility] Work Phone: Comment on above: Non- GFR Calc Serum or plasma calcium manuel urement (mass/volume)on 05-07-2021 Calcium [Mass/Vol] 9.3 mg/dL 8.5-10.1 [facility] Work Phone: Serum or plasma creatinine m easurement (mass/volume)on 05-07-2021 Creatinine [Mass/Vol] 0.94 mg/dL 0.55-1.02 [facility] Work Phone: Comment on above: The validity of the calculated GFR & GFRAA in patients over 70 years has not been determined. Clinical correlation is essential. Serum or plasma urea nitroge n measurement (mass/volume)on 05-07-2021 Urea nitrogen [Mass/Vol] 28 mg/dL 7-[address] [facility] Work Phone: Thin prep Papanicolaou smear with manual screeningon 05-07-2021 Thin prep Papanicolaou smear with manual screening 6 5-[address] [facility] Work Phone: Basophil percentageon 2020 Chloride [Moles/Vol] 103 mmol/L 98-107 [facility] Work Phone: Glucose [Mass/Vol] 102 mg/dL 74-106 [facility] Work Phone: Comment on above: Fasting Glucose resu lt from 100 to 125 mg/dL suggests IMPAIRED HOMEOSTASIS per A.D.A. criteria.Please note revised GLUCOSE reference range effective 2017. Potassium [Moles/Vol] 4.4 mmol/L 3.5-5.1 [facility] Work Phone: Sodium [Moles/Vol] 138 mmol/L 136-145 [facility] Work Phone: Laboratory - Chemistry and C hemistry - challengeon 04-23-2021 CO2 [Moles/Vol] 28.0 mmol/L 21.0-32.[address] [facility] Work Phone: Natriuretic peptide B (Bld) [Mass/Vol] 47.4 pg/mL 0-[address] [facility] Work Phone: Urea nitrogen/Creatinine [Mass ratio] 29.1 mg/mg 10-[address] [facility] Work Phone: No Panel Informationon 04-23 Estimated GFR (MDRD) Amer 68 mL/min >[address] [facility] Work Phone: Comment on above: GFR Calc Estimated GFR (MDRD) Non-Af Amer 56 mL/min >[address] [facility] Work Phone: Comment on above: Non- GFR Calc Serum or plasma calcium manuel urement (mass/volume)on 04-23-2021 Calcium [Mass/Vol] 9.5 mg/dL 8.5-10.1 [facility] Work Phone: Serum or plasma creatinine m easurement (mass/volume)on 04-23-2021 Creatinine [Mass/Vol] 1.00 mg/dL 0.55-1.02 [facility] Work Phone: Comment on above: The validity of the calculated GFR & GFRAA in patients over 70 years has not been determined. Clinical correlation is essential. Serum or plasma urea nitroge n measurement (mass/volume)on 04-23-2021 Urea nitrogen [Mass/Vol] 29 mg/dL 7-[address] [facility] Work Phone: Thin prep Papanicolaou smear with manual screeningon 04-23-2021 Thin prep Papanicolaou smear with manual screening 7 5-[address] [facility] Work Phone: Coumadin Management: Sunshine n Calcon 04-09-2017 INR Coag RelTime (Bld) Hospital lab Invalid Interpretation Code [facility] Work Phone: [phone] INR Coag RelTime (Bld) 2 to 3 Invalid Interpretation Code [facility] Work Phone: [phone] INR Coag RelTime (PPP) 3.3 {INR} Invalid Interpretation Code [facility] Work Phone: [phone] Prothrombin time (PT) Coag time (PPP) 32.0 s Invalid Interpretation Code [facility] Work Phone: [phone] Lab Report: Prothrombin Time w/INRon 04-09-2017 Prothrombin time (PT) Coag time (PPP) 32 s High 11.7-14.9 [facility] Work Phone: [phone] Coumadin Management: Sunshine cooper Calcon 03-20-2017 INR Coag RelTime (Bld) Hospital lab Invalid Interpretation Code [facility] Work Phone: [phone] INR Coag RelTime (Bld) 2 to 3 Invalid Interpretation Code [facility] Work Phone: [phone] INR Coag RelTime (PPP) 2.4 {INR} Invalid Interpretation Code [facility] Work Phone: [phone] Prothrombin time (PT) Coag time (PPP) 25.4 s Invalid Interpretation Code [facility] Work Phone: [phone] Lab Report: Prothrombin Time w/INRon 03-20-2017 Prothrombin time (PT) Coag time (PPP) 25.4 s High 11.7-14.9 [facility] Work Phone: [phone] Office Visit: [facility] 12-27-19 17 Documentation of current medications (procedure) Done Invalid Interpretation Code [facility] Work Phone: [phone] Fall risk assessment Yes Invalid Interpretation Code [facility] Work Phone: [phone] Replaced Document: Maura COWART Observationson 12-26-2016 EKG QRS axis 2 deg Invalid Interpretation Code [facility] Work Phone: [phone] Interpretation Sinus Rhythm WITHIN NORMAL LIMITS Invalid Interpretation Code [facility] Work Phone: [phone] P [place] 22 deg Invalid Interpretation Code [facility] Work Phone: [phone] LA Interval 164 ms Invalid Interpretation Code [facility] Work Phone: [phone] Pulse (Heart Rate) 65 /min Invalid Interpretation Code [facility] Work Phone: [phone] QRS Duration 94 ms Invalid Interpretation Code [facility] Work Phone: [phone] QT Interval new path ms Invalid Interpretation Code [facility] Work Phone: [phone] QTc Lopez 406 ms Invalid Interpretation Code [facility] Work Phone: [phone] T [place] 36 deg Invalid Interpretation Code [facility] Work Phone: [phone] Chart Maintenanceon 09-27-19 17 Left ventricular Ejection fraction 60 % Invalid Interpretation Code [facility] Work Phone: [phone] Lab Report: Basic Metabolic Profile (BMP)on 03-14-2016 Anion gap 6 mmol/L Invalid Interpretation Code 5-15 [facility] Work Phone: [phone] BUN/Creatinine Ratio 32.1 RATIO High 10-[address] [facility] Work Phone: [phone] Calcium 9.1 mg/dL Invalid Interpretation Code 8.5-10.1 [facility] Work Phone: [phone] Chloride 95 mmol/L Low 98-107 [facility] Work Phone: [phone] CO2 31.0 mmol/L Invalid Interpretation Code 21.0-32.0 [facility] Work Phone: [phone] Creatinine 1.00 mg/dL Invalid Interpretation Code 0.55-1.20 [facility] Work Phone: [phone] eGFR (non-black) 57 mL/min/{1.73_m2} Low >60 [facility] Work Phone: [phone] eGFR (non-black) 69 mL/min/{1.73_m2} Invalid Interpretation Code >60 [facility] Work Phone: [phone] Glucose mass conc 109 mg/dL Invalid Interpretation Code 70-110 [facility] Work Phone: [phone] Potassium molar conc 5.0 mmol/L Invalid Interpretation Code 3.5-5.1 [facility] Work Phone: [phone] Sodium 132 mmol/L Low 136-145 [facility] Work Phone: [phone] Urea nitrogen 32 mg/dL High 7-18 [facility] Work Phone: [phone] Lab Report: CBC W/Diff, Auto matedon 03-14-2016 Absolute Neut 3.1 X10 3/UL Invalid Interpretation Code 2.0-7.7 [facility] Work Phone: [phone] Basophils/100 WBC Auto (Bld) 1.1 % High 0-1 [facility] Work Phone: [phone] Eosinophils/100 leukocytes 2.1 % Invalid Interpretation Code 0-5 [facility] Work Phone: [phone] Erythrocyte distribution width Auto Ratio (RBC) 13.5 % Invalid Interpretation Code 11.6-14.6 [facility] Work Phone: [phone] Erythrocytes (RBC) 4.00 10*6/uL Low 4.2-5.4 [facility] Work Phone: [phone] Hematocrit (HCT) 35.7 % Low 37-47 [facility] Work Phone: [phone] Hemoglobin mass conc (Bld) 11.8 g/dL Low 12.0-15.0 [facility] Work Phone: [phone] Immature granulocytes/100 WBC (Bld) 0.400 % Invalid Interpretation Code 0.0-0.9 [facility] Work Phone: [phone] Lymphocytes 1.53 X10 3/UL Invalid Interpretation Code 0.83-4.51 [facility] Work Phone: [phone] Lymphocytes/100 leukocytes 28.7 % Invalid Interpretation Code 19-41 [facility] Work Phone: [phone] MCH 29.5 pg Invalid Interpretation Code 27.0-32.0 [facility] Work Phone: [phone] MCHC mass conc (RBC) 33.1 G/GL Invalid Interpretation Code 32-36 [facility] Work Phone: [phone] MCV 89.3 fL Invalid Interpretation Code 81-99 [facility] Work Phone: [phone] Monocytes/100 leukocytes 9.2 % Invalid Interpretation Code 0-10 [facility] Work Phone: [phone] Neutrophils/100 WBC Auto (Bld) 58.5 % Invalid Interpretation Code 47-70 [facility] Work Phone: [phone] Platelets 373 10*3/mm3 Invalid Interpretation Code 150-450 [employer] Work Phone: [phone] PMV by Jaci 9.4 fL Invalid Interpretation Code 6.2-12.0 [facility] Work Phone: [phone] RDW SD 44.0 fL High 35.1-43.9 [facility] Work Phone: [phone] WBC (Leukocytes) 5.3 10*3/uL Invalid Interpretation Code 4.4-11.0 [facility] Work Phone: [phone] Lab Report: Thyroid Stim Hor elier (TSH)on 03-14-2016 Thyroid stimulating hormone (TSH) 1.38 u[iU]/mL Invalid Interpretation Code 0.358-3.74 [facility] Work Phone: [phone] Office Visiton 03-14-2016 Dietary management education, guidance, and counseling (procedure) yes Invalid Interpretation Code [facility] Work Phone: [phone] Tobacco use CPHS Never smoker Invalid Interpretation Code [facility] Work Phone: [phone] 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 Alanine aminotransferase (ALT) 21 U/L Invalid Interpretation Code [facility] Work Phone: [phone] Albumin 3.8 g/dL Invalid Interpretation Code [facility] Work Phone: [phone] Alkaline phosphatase (ALP) 62 U/L Invalid Interpretation Code [employer] Phone: [phone] Aspartate aminotransferase (AST) 28 U/L Invalid Interpretation Code [facility] Work Phone: [phone] Bilirubin (total) 0.40 mg/dL Invalid Interpretation Code [facility] Work Phone: [phone] Erythrocyte sedimentation rate 28 mm/h Invalid Interpretation Code [facility] Work Phone: [phone] Protein 7.6 g/dL Invalid Interpretation Code [facility] Work Phone: [phone] Office Visit: [facility] 09-21-19 15 General cardiovascular disease 10Y risk [#] Nova'Agostino 7 % Invalid Interpretation Code [employer] Work Phone: [phone] Tobacco smoking status NHIS Never Invalid Interpretation Code [employer] Work Phone: [phone] Lab Report: BNP,B-Type NATRI URETIC PEPTIDEon 08-11-2014 BNP 32.2 pg/mL Invalid Interpretation Code 0-100 [facility] Work Phone: [phone] Lab Report: Magnesiumon - Magnesium 2.0 mg/dL Invalid Interpretation Code 1.8-2.4 [facility] Work Phone: [phone] Lab Report: T4 Total, Thyrox inon 08-11-2014 Thyroxine (T4) 10.1 ug/dL Invalid Interpretation Code 4.8-13.9 [facility] Work Phone: [phone] [facility] 15 cardiac risk group B Invalid Interpretation Code [facility] Work Phone: [phone] External Other: [employer] of [employer] 11-17-2013 methcontact secmsg Invalid Interpretation Code [facility] Work Phone: [phone] Clinical 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 07-28-2013 Cholesterol 210 mg/dL High [facility] Work Phone: [phone] HDL Cholesterol 93 mg/dL Invalid Interpretation Code [facility] Work Phone: [phone] LDL Cholesterol 104 mg/dL Invalid Interpretation Code [facility] Work Phone: [phone] Triglyceride 63 mg/dL Invalid Interpretation Code [facility] Work Phone: [phone] very low density lipoproteins 13 mg/dL Invalid Interpretation Code [facility] Work Phone: [phone] COVID-19 virus antigen assay SARS-CoV-2 (COVID-19) Ag IA.rapid Ql (Resp) [facility] Work Phone: Culture, urine Bacteria identified Cx Nom (U) Aerococcus viridans. [facility] Work Phone: Bacteria identified Cx Nom (U) Escherichia coli [facility] Work Phone: Hemoglobin.gastrointestinal Ql ([place]) Gastric Occult Blood Positive [facility] Work Phone: Vital Signs Date Time Vital Sign Value Performing Clinician Facility 12-17-2024 08:56-0400 Body mass index (BMI) [Ratio] 30.7 kg/m2 Dr. Bridget Swenson MD Work Phone: [facility] 12-17-2024 08:56-0400 Body weight 71.[address] Bridget Swenson MD Work Phone: [facility] 12-17-2024 08:56-0400 Diastolic blood pressure 65 mm[Hg] Dr. Bridget Swenson MD Work Phone: 6(581)681-272141 [place] [address] 12-17-2024 08:56-0400 Heart rate 75 /min Dr. Bridget Swenson MD Work Phone: 7(770)455-111892 [address] 12-17-2024 08:56-0400 Respiratory rate 18 /min Dr. Bridget Swenson MD Work Phone: 5(132)422-273492 [address] 12-17-2024 08:56-0400 SaO2% (BldA) [Mass fraction] 94 % Dr. Bridget Swenson MD Work Phone: 5(202)724-125041 [place] [address] 12-17-2024 08:56-0400 Systolic blood pressure 110 mm[Hg] Dr. Bridget Swenson MD Work Phone: 4(693)798-012930 [place] [address] 11-19-2024 11:01-0400 Diastolic blood pressure 64 mm[Hg] Dr. Bridget Swenson MD Work Phone: 9(011)071-289592 [address] 11-19-2024 11:01-0400 Heart rate 58 /min Dr. Bridget Swenson MD Work Phone: 6(775)410-354741 [place] [address] 11-19-2024 11:01-0400 Systolic blood pressure 145 mm[Hg] Dr. Bridget Swenson MD Work Phone: 9(064)263-633392 [address] 11-19-2024 10:43-0400 Body height 152.[address] Bridget Swenson MD Work Phone: 6(148)641-276241 [place] [address] 11-19-2024 10:43-0400 Body mass index (BMI) [Ratio] 29.9 kg/m2 Dr. Bridget Swenson MD Work Phone: 0(922)986-139630 [place] [address] 11-19-2024 10:43-0400 Body weight 69.[address] Bridget Swenson MD Work Phone: 3(380)410-489630 [place] [address] 11-19-2024 10:43-0400 Respiratory rate 16 /min Dr. Bridget Swenson MD Work Phone: 3(690)786-697730 [place] [address] 11-17-2024 19:00-0400 Diastolic blood pressure 66 mm[Hg] Dr. Bridget Swenson MD Work Phone: 7(705)522-763230 [place] [address] 11-17-2024 19:00-0400 Heart rate 85 /min Dr. Bridget Swenson MD Work Phone: 5(719)774-611030 [place] [address] 11-17-2024 19:00-0400 Respiratory rate 11 /min Dr. Bridget Swenson MD Work Phone: 9(703)779-227930 [place] [address] 11-17-2024 19:00-0400 SaO2% (BldA) [Mass fraction] 97 % Dr. Bridget Swenson MD Work Phone: 7(311)707-756630 [place] [address] 11-17-2024 19:00-0400 Systolic blood pressure 143 mm[Hg] Dr. Bridget Swenson MD Work Phone: 8(020)533-602130 [place] [address] 11-17-2024 12:56-0400 Body height 152.[address] Bridget Swenson MD Work Phone: 5(840)668-336130 [place] [address] 11-17-2024 12:56-0400 Body mass index (BMI) [Ratio] 30.9 kg/m2 Dr. Bridget Swenson MD Work Phone: 7(591)812-857730 [place] [address] 11-17-2024 12:56-0400 Body temperature 97.9 [degF] Dr. Bridget Swenson MD Work Phone: 4(731)515-910330 [place] [address] 11-17-2024 12:56-0400 Body weight [address] Bridget Swenson MD Work Phone: 4(971)689-703230 [place] [address] 10-13-2024 03:00-0400 Diastolic blood pressure 54 mm[Hg] Nichole Guerra DO Work Phone: [facility] 10-13-2024 03:00-0400 Heart rate 82 /min Nichole Guerra DO Work Phone: [facility] 10-13-2024 03:00-0400 Respiratory rate 18 /min Nichole Guerra DO Work Phone: [facility] 10-13-2024 03:00-0400 SaO2% (BldA) [Mass fraction] 93 % Nichole Guerra DO Work Phone: [facility] 10-13-2024 03:00-0400 Systolic blood pressure 143 mm[Hg] Nichole Guerra DO Work Phone: [facility] 10-12-2024 23:14-0400 Body temperature 97.81 [degF] Nichole Guerra DO Work Phone: [facility] 10-09-2024 12:36-0400 Body temperature 98 [degF] Dr. Bridget Swenson MD Work Phone: [facility] 10-09-2024 12:36-0400 Diastolic blood pressure 48 mm[Hg] Dr. Bridget Swenson MD Work Phone: [facility] 10-09-2024 12:36-0400 Heart rate 68 /min Dr. Bridget Swenson MD Work Phone: [facility] 10-09-2024 12:36-0400 Respiratory rate 16 /min Dr. Bridget Swenson MD Work Phone: [facility] 10-09-2024 12:36-0400 SaO2% (BldA) [Mass fraction] 98 % Dr. Bridget Swenson MD Work Phone: [facility] 10-09-2024 12:36-0400 Systolic blood pressure 124 mm[Hg] Dr. Bridget Swenson MD Work Phone: [facility] 10-09-2024 11:50-0400 Body mass index (BMI) [Ratio] 29.7 kg/m2 Dr. Bridget Swenson MD Work Phone: 1(565)074-236941 [place] [address] 10-09-2024 06:00-0400 Body weight 69.[address] Bridget Swenson MD Work Phone: 7(184)295-338330 [place] [address] 10-07-2024 14:01-0400 Body height 152.[address] Bridget Swenson MD Work Phone: 4(503)831-942530 [place] [address] 10-04-2024 14:00-0400 Diastolic blood pressure 52 mm[Hg] Dr. Bridget Swenson MD Work Phone: 6(046)129-176530 [place] [address] 10-04-2024 14:00-0400 Systolic blood pressure 151 mm[Hg] Dr. Bridget Swenson MD Work Phone: 2(391)710-252730 [place] [address] 10-04-2024 01:06-0400 Body temperature 97.9 [degF] Dr. Bridget Swenson MD Work Phone: 6(524)100-742630 [place] [address] 10-04-2024 01:06-0400 Heart rate 88 /min Dr. Bridget Swenson MD Work Phone: 6(313)231-245830 [place] [address] 10-04-2024 01:06-0400 Respiratory rate 18 /min Dr. Bridget Swenson MD Work Phone: 3(445)025-041430 [place] [address] 10-04-2024 01:06-0400 SaO2% (BldA) [Mass fraction] 99 % Dr. Bridget Swenson MD Work Phone: 4(593)013-493230 [place] [address] 10-03-2024 19:05-0400 Body mass index (BMI) [Ratio] 26.6 kg/m2 Dr. Bridget Swenson MD Work Phone: 0(639)826-623430 [place] [address] 10-03-2024 19:05-0400 Body weight 70.[address] Bridget Swenson MD Work Phone: 0(569)062-603330 [place] [address] 10-03-2024 17:44-0400 Body height 162.[address] Bridget Swenson MD Work Phone: 7(860)232-500230 [place] [address] 10-01-2024 20:11-0400 Body temperature 98.2 [degF] Dr. Bridget Swenson MD Work Phone: [facility] 10-01-2024 20:11-0400 Heart rate 86 /min Dr. Bridget Swenson MD Work Phone: [facility] 10-01-2024 20:11-0400 Respiratory rate 20 /min Dr. Bridget Swenson MD Work Phone: 4(085)454-413592 [address] 10-01-2024 20:11-0400 SaO2% (BldA) [Mass fraction] 97 % Dr. Bridget Swensno MD Work Phone: 6(078)116-319130 [place] [address] 10-01-2024 18:00-0400 Diastolic blood pressure 65 mm[Hg] Dr. Bridget Swenson MD Work Phone: 4(791)063-217230 [place] [address] 10-01-2024 18:00-0400 Systolic blood pressure 160 mm[Hg] Dr. Bridget Swenson MD Work Phone: 1(637)799-966441 [place] [address] 10-01-2024 15:22-0400 Body mass index (BMI) [Ratio] 27.2 kg/m2 Dr. Bridget Swenson MD Work Phone: 0(578)135-608441 [place] [address] 10-01-2024 15:22-0400 Body weight [address] Bridget Swenson MD Work Phone: 3(444)265-009941 [place] [address] 09-03-2024 12:18-0400 Body temperature 97.8 [degF] Dr. Bridget Swenson MD Work Phone: 7(208)554-039941 [place] [address] 09-03-2024 12:18-0400 Diastolic blood pressure 45 mm[Hg] Dr. Bridget Swenson MD Work Phone: 0(714)965-916341 [place] [address] 09-03-2024 12:18-0400 Heart rate 75 /min Dr. Bridget Swenson MD Work Phone: [facility] 09-03-2024 12:18-0400 Respiratory rate 16 /min Dr. Bridget Swenson MD Work Phone: [facility] 09-03-2024 12:18-0400 SaO2% (BldA) [Mass fraction] 96 % Dr. Bridget Swenson MD Work Phone: 8(014)925-132441 [place] [address] 09-03-2024 12:18-0400 Systolic blood pressure 134 mm[Hg] Dr. Bridget Swenson MD Work Phone: 0(360)341-710330 [place] [address] 09-01-2024 13:10-0400 Body weight [address] Bridget Swenson MD Work Phone: 0(378)885-386730 [place] [address] 09-01-2024 03:03-0400 Body mass index (BMI) [Ratio] 28 kg/m2 Dr. Bridget Swenson MD Work Phone: 9(165)636-048730 [place] [address] 08-31-2024 16:18-0400 Body mass index (BMI) [Ratio] 31.6 kg/m2 Dr. Bridget Swenson MD Work Phone: 1(755)264-845730 [place] [address] 08-31-2024 16:07-0400 Diastolic blood pressure 44 mm[Hg] Dr. Bridget Swenson MD Work Phone: 5(430)256-851530 [place] [address] 08-31-2024 16:07-0400 Heart rate 98 /min Dr. Bridget Swenson MD Work Phone: 6(419)978-552830 [place] [address] 08-31-2024 16:07-0400 Systolic blood pressure 138 mm[Hg] Dr. Bridget Swenson MD Work Phone: 1(548)053-642030 [place] [address] 08-31-2024 16:04-0400 Body temperature 98.2 [degF] Dr. Bridget Swenson MD Work Phone: 5(119)809-685030 [place] [address] 08-31-2024 16:04-0400 Respiratory rate 16 /min Dr. Bridget Swenson MD Work Phone: 3(681)666-273130 [place] [address] 08-31-2024 16:04-0400 SaO2% (BldA) [Mass fraction] 94 % Dr. Bridget Swenson MD Work Phone: 7(633)146-635930 [place] [address] 08-31-2024 14:33-0400 Body weight 73.[address] Bridget Swenson MD Work Phone: [facility] 08-30-2024 23:35-0400 Inhaled oxygen concentration 21 % Dr. Bridget Swenson MD Work Phone: [facility] 08-30-2024 14:00-0400 Diastolic blood pressure 78 mm[Hg] Dr. Bridget Swenson MD Work Phone: [facility] 08-30-2024 14:00-0400 Heart rate 89 /min Dr. Bridget Swenson MD Work Phone: 1(662)413-126041 [place] [address] 08-30-2024 14:00-0400 Respiratory rate 18 /min Dr. Bridget Swenson MD Work Phone: 3(078)773-437792 [address] 08-30-2024 14:00-0400 SaO2% (BldA) [Mass fraction] 95 % Dr. Bridget Swenson MD Work Phone: [facility] 08-30-2024 14:00-0400 Systolic blood pressure 166 mm[Hg] Dr. Bridget Swenson MD Work Phone: [facility] 08-30-2024 13:30-0400 Body temperature 98.1 [degF] Dr. Bridget Swenson MD Work Phone: [facility] 08-30-2024 10:25-0400 Body height 152.[address] Bridget Swenson MD Work Phone: [facility] 08-30-2024 10:25-0400 Body mass index (BMI) [Ratio] 30.8 kg/m2 Dr. Bridget Swenson MD Work Phone: [facility] 08-30-2024 10:25-0400 Body weight 71.[address] Bridget Swenson MD Work Phone: [facility] 07-26-2024 11:21-0400 Body mass index (BMI) [Ratio] 32.5 kg/m2 Dr. Bridget Swenson MD Work Phone: [facility] 07-26-2024 11:21-0400 Body weight 75.[address] Bridget Swenson MD Work Phone: [facility] 07-26-2024 11:21-0400 Diastolic blood pressure 74 mm[Hg] Dr. Bridget Swenson MD Work Phone: [facility] 07-26-2024 11:21-0400 Heart rate 63 /min Dr. Bridget Swenson MD Work Phone: [facility] 07-26-2024 11:21-0400 Respiratory rate 18 /min Dr. Bridget Swenson MD Work Phone: [facility] 07-26-2024 11:21-0400 SaO2% (BldA) [Mass fraction] 96 % Dr. Bridget Swenson MD Work Phone: [facility] 07-26-2024 11:21-0400 Systolic blood pressure 169 mm[Hg] Dr. Bridget Swenson MD Work Phone: [facility] 07-26-2024 09:46-0400 Body temperature 97.9 [degF] Dr. Bridget Swenson MD Work Phone: [facility] 07-26-2024 09:46-0400 Diastolic blood pressure 53 mm[Hg] Dr. Bridget Swenson MD Work Phone: [facility] 07-26-2024 09:46-0400 Heart rate 74 /min Dr. Bridget Swenson MD Work Phone: [facility] 07-26-2024 09:46-0400 Respiratory rate 16 /min Dr. Bridget Swenson MD Work Phone: [facility] 07-26-2024 09:46-0400 SaO2% (BldA) [Mass fraction] 95 % Dr. Bridget Swenson MD Work Phone: [facility] 07-26-2024 09:46-0400 Systolic blood pressure 138 mm[Hg] Dr. Bridget Swenson MD Work Phone: [facility] 07-21-2024 09:54-0400 Body weight 76.[address] Bridget Swenson MD Work Phone: [facility] 07-20-2024 16:17-0400 Body mass index (BMI) [Ratio] 33 kg/m2 Dr. Bridget Swenson MD Work Phone: 5(881)707-152141 [place] [address] 07-10-2024 09:09-0500 Inhaled oxygen flow rate 2 L/min Dr. Bridget Swenson MD Work Phone: 6(259)948-708692 [address] 06-26-2024 17:49-0500 Diastolic blood pressure 50 mm[Hg] Dr. Bridget Swenson MD Work Phone: 0(951)319-740241 [place] [address] 06-26-2024 17:49-0500 Heart rate 67 /min Dr. Bridget Swenson MD Work Phone: 0(637)299-495041 [place] [address] 06-26-2024 17:49-0500 Respiratory rate 16 /min Dr. Bridget Swenson MD Work Phone: 8(578)734-558241 [place] [address] 06-26-2024 17:49-0500 SaO2% (BldA) [Mass fraction] 99 % Dr. Bridget Swenson MD Work Phone: 5(779)292-782441 [place] [address] 06-26-2024 17:49-0500 Systolic blood pressure 198 mm[Hg] Dr. Bridget Swenson MD Work Phone: [facility] 06-26-2024 16:53-0500 Inhaled oxygen flow rate 2 L/min Dr. Bridget Swenson MD Work Phone: 2(542)456-249041 [place] [address] 06-26-2024 16:00-0500 Body temperature 98 [degF] Dr. Bridget Swenson MD Work Phone: [facility] 06-26-2024 12:27-0500 Body mass index (BMI) [Ratio] 32.5 kg/m2 Dr. Bridget Swenson MD Work Phone: [facility] 06-26-2024 12:27-0500 Body weight 75.[address] Bridget Swenson MD Work Phone: [facility] 06-15-2024 10:46-0500 Body height 152.4 cm Jessa Mikula MAILING MANAGER.PERSONAL DEVELOPMENT EDUCATOR Work Phone: [facility] 06-15-2024 10:46-0500 Body mass index (BMI) [Ratio] 31.64 kg/m2 Jessa Mikula MAILING MANAGER.PERSONAL DEVELOPMENT EDUCATOR Work Phone: [facility] 06-15-2024 10:46-0500 Body weight 73.48 kg Jessa Mikula MAILING MANAGER.PERSONAL DEVELOPMENT EDUCATOR Work Phone: [facility] 06-15-2024 10:46-0500 Diastolic blood pressure 44 mm[Hg] Jessa Mikula MAILING MANAGER.PERSONAL DEVELOPMENT EDUCATOR Work Phone: [facility] 06-15-2024 10:46-0500 Heart rate 84 /min Jessa Mikula MAILING MANAGER.PERSONAL DEVELOPMENT EDUCATOR Work Phone: [facility] 06-15-2024 10:46-0500 Systolic blood pressure 171 mm[Hg] Jessa Mikula MAILING MANAGER.PERSONAL DEVELOPMENT EDUCATOR Work Phone: [facility] 06-15-2024 05:30-0500 Heart rate 69 /min Dr. Bridget Swenson MD Work Phone: [facility] 06-15-2024 05:30-0500 Respiratory rate 16 /min Dr. Bridget Swenson MD Work Phone: [facility] 06-14-2024 19:57-0500 Diastolic blood pressure 52 mm[Hg] Dr. Bridget Swenson MD Work Phone: [facility] 06-14-2024 19:57-0500 Systolic blood pressure 157 mm[Hg] Dr. Bridget Swenson MD Work Phone: [facility] 06-14-2024 19:15-0500 Body temperature 98.2 [degF] Dr. Bridget Swenson MD Work Phone: [facility] 06-14-2024 19:15-0500 SaO2% (BldA) [Mass fraction] 95 % Dr. Bridget Swenson MD Work Phone: 2(258)994-381041 [place] [address] 06-08-2024 15:57-0500 Body mass index (BMI) [Ratio] 32.9 kg/m2 Dr. Bridget Swenson MD Work Phone: 5(142)990-410730 [place] [address] 06-08-2024 15:57-0500 Body weight 76.[address] Bridget Swenson MD Work Phone: 8(245)814-517330 [place] [address] 06-06-2024 05:54-0500 Inhaled oxygen flow rate 2 L/min Dr. Bridget Swenson MD Work Phone: 0(801)511-954330 [place] [address] 05-30-2024 10:00-0500 Diastolic blood pressure 68 mm[Hg] Dr. Bridget Swenson MD Work Phone: 2(990)789-276830 [place] [address] 05-30-2024 10:00-0500 Systolic blood pressure 138 mm[Hg] Dr. Bridget Swenson MD Work Phone: 8(126)320-275030 [place] [address] 05-30-2024 08:36-0500 Heart rate 68 /min Dr. Bridget Swenson MD Work Phone: 5(151)287-048630 [place] [address] 05-30-2024 04:38-0500 Body temperature 98 [degF] Dr. Bridget Swenson MD Work Phone: 6(100)692-484130 [place] [address] 05-30-2024 04:38-0500 Respiratory rate 16 /min Dr. Bridget Swenson MD Work Phone: 2(333)776-340230 [place] [address] 05-30-2024 04:38-0500 SaO2% (BldA) [Mass fraction] 95 % Dr. Bridget Swenson MD Work Phone: 5(602)296-673030 [place] [address] 05-28-2024 07:20-0500 Inhaled oxygen flow rate 2 L/min Dr. Bridget Swenson MD Work Phone: 9(833)352-369030 [place] [address] 05-26-2024 06:00-0500 Body mass index (BMI) [Ratio] 32.1 kg/m2 Dr. Bridget Swenson MD Work Phone: [facility] 05-26-2024 06:00-0500 Body weight 74.[address] Bridget Swenson MD Work Phone: [facility] 05-18-2024 20:34-0500 Inhaled oxygen concentration 21 % Dr. Bridget Swenson MD Work Phone: [facility] 05-14-2024 12:15-0500 Diastolic blood pressure 71 mm[Hg] [facility] 05-14-2024 12:15-0500 Heart rate 60 /min [facility] 05-14-2024 12:15-0500 SaO2% (BldA) [Mass fraction] 94 % [facility] 05-14-2024 12:15-0500 Systolic blood pressure 157 mm[Hg] [facility] 05-14-2024 12:05-0500 Respiratory rate 33 /min [facility] 05-14-2024 11:32-0500 Body temperature 97.39 [degF] [facility] 05-11-2024 16:30-0500 Diastolic blood pressure 53 mm[Hg] Dr. Bridget Swenson MD Work Phone: [facility] 05-11-2024 16:30-0500 Heart rate 87 /min Dr. Bridget Swenson MD Work Phone: [facility] 05-11-2024 16:30-0500 Inhaled oxygen flow rate 2 L/min Dr. Bridget Swenson MD Work Phone: [facility] 05-11-2024 16:30-0500 Respiratory rate 14 /min Dr. Bridget Swenson MD Work Phone: [facility] 05-11-2024 16:30-0500 SaO2% (BldA) [Mass fraction] 99 % Dr. Bridget Swenson MD Work Phone: [facility] 05-11-2024 16:30-0500 Systolic blood pressure 145 mm[Hg] Dr. Bridget Swenson MD Work Phone: [facility] 05-11-2024 11:52-0500 Body mass index (BMI) [Ratio] 34 kg/m2 Dr. Bridget Swenson MD Work Phone: [facility] 05-11-2024 11:52-0500 Body weight 78.[address] Bridget Swenson MD Work Phone: [facility] 05-11-2024 11:46-0500 Body temperature 98 [degF] Dr. Bridget Swenson MD Work Phone: [facility] 05-12-2023 09:28-0500 Heart rate 87 /min Dr. Doyle Swenson Work Phone: [facility] 05-12-2023 09:28-0500 Respiratory rate 16 /min Dr. Doyle Swenson Work Phone: [facility] 05-12-2023 09:28-0500 SaO2% (BldA) [Mass fraction] 92 % Dr. Doyle Swenson Work Phone: [facility] 05-12-2023 07:31-0500 Body height 152.[address] Doyle Swenson Work Phone: [facility] 05-12-2023 07:31-0500 Body temperature 99.9 [degF] Dr. Doyle Swenson Work Phone: [facility] 05-12-2023 07:31-0500 Diastolic blood pressure 81 mm[Hg] Dr. Doyle Swenson Work Phone: [facility] 05-12-2023 07:31-0500 Systolic blood pressure 201 mm[Hg] Dr. Doyle Swenson Work Phone: [facility] 01-28-2023 14:05-0400 Body height 152.[address] Doyle Swenson Work Phone: [facility] 01-28-2023 14:05-0400 Body mass index (BMI) [Ratio] 33.5 kg/m2 Dr. Doyle Swenson Work Phone: [facility] 01-28-2023 14:05-0400 Body weight 78.[address] Doyle Swenson Work Phone: [facility] 01-28-2023 14:05-0400 Diastolic blood pressure 82 mm[Hg] Dr. Doyle Swenson Work Phone: [facility] 01-28-2023 14:05-0400 Heart rate 66 /min Dr. Doyle Swenson Work Phone: [facility] 01-28-2023 14:05-0400 Respiratory rate 18 /min Dr. Doyle Swenson Work Phone: [facility] 01-28-2023 14:05-0400 Systolic blood pressure 186 mm[Hg] Dr. Doyle Swenson Work Phone: [facility] 06-18-2022 10:21-0500 Body height 152.[address] Doyle Swenson Work Phone: [facility] 05-18-2022 19:38-0500 Diastolic blood pressure 80 mm[Hg] Dr. Doyle Swenson Work Phone: [facility] 05-18-2022 19:38-0500 Heart rate 78 /min Dr. Doyle Swenson Work Phone: [facility] 05-18-2022 19:38-0500 Respiratory rate 15 /min Dr. Doyle Swenson Work Phone: [facility] 05-18-2022 19:38-0500 SaO2% (BldA) [Mass fraction] 0 % Dr. Doyle Swenson Work Phone: [facility] 05-18-2022 19:38-0500 Systolic blood pressure 124 mm[Hg] Dr. Doyle Swenson Work Phone: [facility] 05-18-2022 16:04-0500 Body height 152.[address] Doyle Swenson Work Phone: [facility] 05-18-2022 16:04-0500 Body mass index (BMI) [Ratio] 33.7 kg/m2 Dr. Doyle Swenson Work Phone: [facility] 05-18-2022 16:04-0500 Body temperature 98.8 [degF] Dr. Doyle Swenson Work Phone: [facility] 05-18-2022 16:04-0500 Body weight 78.[address] Doyle Swenson Work Phone: [facility] 04-18-2022 14:56-0500 Body temperature 97.7 [degF] Dr. Doyle Swenson Work Phone: [facility] 04-18-2022 14:56-0500 Diastolic blood pressure 70 mm[Hg] Dr. Doyle Swenson Work Phone: [facility] 04-18-2022 14:56-0500 Heart rate 79 /min Dr. Doyle Swenson Work Phone: [facility] 04-18-2022 14:56-0500 Respiratory rate 18 /min Dr. Doyle Swenson Work Phone: [facility] 04-18-2022 14:56-0500 SaO2% (BldA) [Mass fraction] 95 % Dr. Doyle Swenson Work Phone: [facility] 04-18-2022 14:56-0500 Systolic blood pressure 145 mm[Hg] Dr. Doyle Swenson Work Phone: [facility] 04-17-2022 13:55-0500 Body height 152.[address] Doyle Swenson Work Phone: [facility] Work Phone: 04-17-2022 13:55-0500 Body mass index (BMI) [Ratio] 33.6 kg/m2 Dr. Doyle Swenson Work Phone: [facility] 04-17-2022 13:55-0500 Body weight 78.[address] Doyle Swenson Work Phone: [facility] 04-11-2022 14:28-0500 Inhaled oxygen flow rate 2 L/min Dr. Doyle Swenson Work Phone: [facility] 04-11-2022 09:04-0500 Body temperature 98 [degF] Dr. Doyle Swenson Work Phone: [facility] Work Phone: 04-11-2022 09:04-0500 Diastolic blood pressure 48 mm[Hg] Dr. Doyle Swenson Work Phone: [facility] Work Phone: 04-11-2022 09:04-0500 Heart rate 65 /min Dr. Doyle Swenson Work Phone: [facility] Work Phone: 04-11-2022 09:04-0500 Inhaled oxygen flow rate 1 L/min Dr. Doyle Swenson Work Phone: [facility] Work Phone: 04-11-2022 09:04-0500 Respiratory rate 16 /min Dr. Doyle Swenson Work Phone: [facility] Work Phone: 04-11-2022 09:04-0500 SaO2% (BldA) [Mass fraction] 96 % Dr. Doyle Swenson Work Phone: [facility] Work Phone: 04-11-2022 09:04-0500 Systolic blood pressure 138 mm[Hg] Dr. Doyle Swenson Work Phone: [facility] Work Phone: 04-10-2022 22:43-0500 Body height 152.[address] Doyle Swenson Work Phone: [facility] Work Phone: 04-10-2022 22:43-0500 Body mass index (BMI) [Ratio] 33.7 kg/m2 Dr. Doyle Swenson Work Phone: [facility] Work Phone: 04-10-2022 22:43-0500 Body weight 78.[address] Doyle Swenson Work Phone: [facility] Work Phone: 04-10-2022 21:10-0500 Body temperature 97.9 [degF] Dr. Doyle Swenson Work Phone: [facility] Work Phone: 04-10-2022 21:10-0500 Diastolic blood pressure 59 mm[Hg] Dr. Doyle Swenson Work Phone: [facility] Work Phone: 04-10-2022 21:10-0500 Heart rate 89 /min Dr. Doyle Swenson Work Phone: [facility] Work Phone: 04-10-2022 21:10-0500 Respiratory rate 18 /min Dr. Doyle Swenson Work Phone: [facility] Work Phone: 04-10-2022 21:10-0500 SaO2% (BldA) [Mass fraction] 93 % Dr. Doyle Swenson Work Phone: [facility] Work Phone: 04-10-2022 21:10-0500 Systolic blood pressure 142 mm[Hg] Dr. Doyle Swenson Work Phone: [facility] Work Phone: 04-10-2022 16:47-0500 Body height 152.[address] Doyle Swenson Work Phone: [facility] Work Phone: 04-10-2022 16:47-0500 Body mass index (BMI) [Ratio] 33.5 kg/m2 Dr. Doyle Swenson Work Phone: [facility] Work Phone: 04-10-2022 16:47-0500 Body weight 78.[address] Doyle Swenson Work Phone: [facility] Work Phone: 03-18-2022 14:05-0500 Body temperature 97.2 [degF] Dr. Doyle Swenson Work Phone: [facility] 03-18-2022 14:05-0500 Diastolic blood pressure 46 mm[Hg] Dr. Doyle Swenson Work Phone: [facility] 03-18-2022 14:05-0500 Heart rate 73 /min Dr. Doyle Swenson Work Phone: [facility] 03-18-2022 14:05-0500 Respiratory rate 16 /min Dr. Doyle Swenson Work Phone: [facility] 03-18-2022 14:05-0500 SaO2% (BldA) [Mass fraction] 99 % Dr. Doyle Swenson Work Phone: [facility] 03-18-2022 14:05-0500 Systolic blood pressure 135 mm[Hg] Dr. Doyle Swenson Work Phone: [facility] 03-15-2022 14:00-0400 Body height 154.[address] Doyle Swenson Work Phone: [facility] Work Phone: 03-15-2022 14:00-0400 Body weight 78.[address] Doyle Swenson Work Phone: [facility] 02-18-2022 14:00-0400 Body temperature 97.2 [degF] Dr. Doyle Swenson Work Phone: [facility] Work Phone: 02-18-2022 14:00-0400 Diastolic blood pressure 56 mm[Hg] Dr. Doyle Swenson Work Phone: [facility] Work Phone: 02-18-2022 14:00-0400 Heart rate 68 /min Dr. Doyle Swenson Work Phone: [facility] Work Phone: 02-18-2022 14:00-0400 Respiratory rate 16 /min Dr. Doyle Swenson Work Phone: [facility] Work Phone: 02-18-2022 14:00-0400 SaO2% (BldA) [Mass fraction] 94 % Dr. Doyle Swenson Work Phone: [facility] Work Phone: 02-18-2022 14:00-0400 Systolic blood pressure 113 mm[Hg] Dr. Doyle Swenson Work Phone: [facility] Work Phone: 02-17-2022 12:39-0400 Body weight 80.[address] Doyle Swenson Work Phone: [facility] Work Phone: 02-17-2022 11:52-0400 Body height 154.[address] Doyle Swenson Work Phone: [facility] Work Phone: 02-16-2022 11:58-0400 Body mass index (BMI) [Ratio] 33.7 kg/m2 Dr. Doyle Swenson Work Phone: [facility] 02-14-2022 12:37-0400 Body temperature 97.9 [degF] Dr. Doyle Swenson Work Phone: [facility] 02-14-2022 12:37-0400 Diastolic blood pressure 51 mm[Hg] Dr. Doyle Swenson Work Phone: [facility] 02-14-2022 12:37-0400 Heart rate 70 /min Dr. Doyle Swenson Work Phone: [facility] 02-14-2022 12:37-0400 Respiratory rate 18 /min Dr. Doyle Swenson Work Phone: [facility] 02-14-2022 12:37-0400 SaO2% (BldA) [Mass fraction] 94 % Dr. Doyle Swenson Work Phone: [facility] 02-14-2022 12:37-0400 Systolic blood pressure 126 mm[Hg] Dr. Doyle Swenson Work Phone: [facility] 02-12-2022 14:50-0400 Body height 154.[address] Doyle Swenson Work Phone: [facility] Work Phone: 02-12-2022 14:50-0400 Body weight 81.[address] Doyle Swenson Work Phone: [facility] 02-11-2022 17:06-0400 Body mass index (BMI) [Ratio] 74.1 kg/m2 Dr. Doyle Swenson Work Phone: [facility] 02-11-2022 13:24-0400 Body temperature 97.7 [degF] Dr. Doyle Swenson Work Phone: [facility] 02-11-2022 13:24-0400 Diastolic blood pressure 62 mm[Hg] Dr. Doyle Swenson Work Phone: [facility] 02-11-2022 13:24-0400 Heart rate 66 /min Dr. Doyle Swenson Work Phone: [facility] 02-11-2022 13:24-0400 Respiratory rate 18 /min Dr. Doyle Swenson Work Phone: [facility] 02-11-2022 13:24-0400 SaO2% (BldA) [Mass fraction] 91 % Dr. Doyle Swenson Work Phone: [facility] 02-11-2022 13:24-0400 Systolic blood pressure 127 mm[Hg] Dr. Doyle Swenson Work Phone: [facility] 02-11-2022 07:40-0400 Inhaled oxygen flow rate 2 L/min Dr. Doyle Swenson Work Phone: [facility] 02-09-2022 21:49-0400 Body height 154.[address] Doyle Swenson Work Phone: [facility] Work Phone: 02-09-2022 21:49-0400 Body mass index (BMI) [Ratio] 33.5 kg/m2 Dr. Doyle Swenson Work Phone: [facility] 02-09-2022 21:49-0400 Body weight 80.[address] Doyle Swenson Work Phone: [facility] 02-09-2022 21:23-0400 Body temperature 98.4 [degF] Dr. Doyle Swenson Work Phone: [facility] Work Phone: 02-09-2022 21:23-0400 Diastolic blood pressure 52 mm[Hg] Dr. Doyle Swenson Work Phone: [facility] Work Phone: 02-09-2022 21:23-0400 Heart rate 78 /min Dr. Doyle Swenson Work Phone: [facility] Work Phone: 02-09-2022 21:23-0400 Respiratory rate 16 /min Dr. Doyle Swenson Work Phone: [facility] Work Phone: 02-09-2022 21:23-0400 SaO2% (BldA) [Mass fraction] 97 % Dr. Doyle Swenson Work Phone: [facility] Work Phone: 02-09-2022 21:23-0400 Systolic blood pressure 138 mm[Hg] Dr. Doyle Swenson Work Phone: [facility] Work Phone: 02-09-2022 16:59-0400 Body height 154.[address] Doyle Swenson Work Phone: [facility] Work Phone: 02-09-2022 16:59-0400 Body mass index (BMI) [Ratio] 35.9 kg/m2 Dr. Doyle Swenson Work Phone: [facility] Work Phone: 02-09-2022 16:59-0400 Body weight 86.[address] Doyle Swenson Work Phone: [facility] Work Phone: 01-01-2022 14:25-0400 Body height 154.[address] Doyle Swenson Work Phone: [facility] Work Phone: 01-01-2022 14:25-0400 Body mass index (BMI) [Ratio] 34 kg/m2 Dr. Doyle Swenson Work Phone: [facility] Work Phone: 01-01-2022 14:25-0400 Body weight 81.[address] Doyle Swenson Work Phone: [facility] Work Phone: 01-01-2022 14:25-0400 Diastolic blood pressure 69 mm[Hg] Dr. Doyle Swenson Work Phone: [facility] Work Phone: 01-01-2022 14:25-0400 Heart rate 69 /min Dr. Doyle Swenson Work Phone: [facility] Work Phone: 01-01-2022 14:25-0400 Respiratory rate 18 /min Dr. Doyle Swenson Work Phone: [facility] Work Phone: 01-01-2022 14:25-0400 Systolic blood pressure 176 mm[Hg] Dr. Doyle Swenson Work Phone: [facility] Work Phone: 11-22-2021 14:45-0400 Body height 154.[address] Doyle Swenson Work Phone: [facility] Work Phone: 11-22-2021 14:45-0400 Body mass index (BMI) [Ratio] 34 kg/m2 Dr. Doyle Swenson Work Phone: [facility] Work Phone: 11-22-2021 14:45-0400 Body weight 81.[address] Doyle Swenson Work Phone: [facility] Work Phone: 11-22-2021 14:45-0400 Diastolic blood pressure 76 mm[Hg] Dr. Doyle Swenson Work Phone: [facility] Work Phone: 11-22-2021 14:45-0400 Heart rate 71 /min Dr. Doyle Swenson Work Phone: [facility] Work Phone: 11-22-2021 14:45-0400 SaO2% (BldA) [Mass fraction] 94 % Dr. Doyle Swenson Work Phone: [facility] Work Phone: 11-22-2021 14:45-0400 Systolic blood pressure 148 mm[Hg] Dr. Doyle Swenson Work Phone: [facility] Work Phone: 10-04-2021 12:50-0400 Body mass index (BMI) [Ratio] 33.6 kg/m2 Dr. Doyle Swenson Work Phone: [facility] Work Phone: 10-04-2021 12:50-0400 Body weight 80.[address] Doyle Swenson Work Phone: [facility] Work Phone: 10-04-2021 12:50-0400 Diastolic blood pressure 78 mm[Hg] Dr. Doyle Swenson Work Phone: [facility] Work Phone: 10-04-2021 12:50-0400 Heart rate 69 /min Dr. Doyle Swenson Work Phone: [facility] Work Phone: 10-04-2021 12:50-0400 SaO2% (BldA) [Mass fraction] 97 % Dr. Doyle Swenson Work Phone: [facility] Work Phone: 10-04-2021 12:50-0400 Systolic blood pressure 156 mm[Hg] Dr. Doyle Swenson Work Phone: [facility] Work Phone: 07-25-2021 14:30-0400 Body temperature 98.4 [degF] Dr. Doyle Swenson Work Phone: [facility] Work Phone: 07-25-2021 14:30-0400 Diastolic blood pressure 38 mm[Hg] Dr. Doyle Swenson Work Phone: [facility] Work Phone: 07-25-2021 14:30-0400 Heart rate 67 /min Dr. Doyle Swenson Work Phone: [facility] Work Phone: 07-25-2021 14:30-0400 Respiratory rate 16 /min Dr. Doyle Swenson Work Phone: [facility] Work Phone: 07-25-2021 14:30-0400 SaO2% (BldA) [Mass fraction] 92 % Dr. Doyle Swenson Work Phone: [facility] Work Phone: 07-25-2021 14:30-0400 Systolic blood pressure 112 mm[Hg] Dr. Doyle Swenson Work Phone: [facility] Work Phone: 07-25-2021 12:07-0400 Body height 154.[address] Doyle Swenson Work Phone: [facility] Work Phone: 07-25-2021 12:07-0400 Body weight 79.[address] Doyle Swenson Work Phone: [facility] Work Phone: 07-24-2021 08:49-0400 Body mass index (BMI) [Ratio] 33.1 kg/m2 Dr. Doyle Swenson Work Phone: [facility] Work Phone: 05-01-2021 11:26-0500 Body mass index (BMI) [Ratio] 32.3 kg/m2 Dr. Doyle Swenson Work Phone: [facility] Work Phone: 05-01-2021 11:26-0500 Body weight 80.[address] Doyle Swenson Work Phone: [facility] Work Phone: 05-01-2021 11:26-0500 Diastolic blood pressure 73 mm[Hg] Dr. Doyle Swenson Work Phone: [facility] Work Phone: 05-01-2021 11:26-0500 Heart rate 68 /min Dr. Doyle Swenson Work Phone: [facility] Work Phone: 05-01-2021 11:26-0500 Respiratory rate 161 /min Dr. Doyle Swenson Work Phone: [facility] Work Phone: 05-01-2021 11:26-0500 SaO2% (BldA) [Mass fraction] 98 % Dr. Doyle Swenson Work Phone: [facility] Work Phone: 05-01-2021 11:26-0500 Systolic blood pressure 182 mm[Hg] Dr. Doyle Swenson Work Phone: [facility] Work Phone: 12-26-2016 09:43-0400 BMI (Body Mass Index) 30.83 kg/m2 [facility] Work Phone: 12-26-2016 09:43-0400 BP Diastolic 70 mm[Hg] [facility] Work Phone: 12-26-2016 09:43-0400 BP Systolic 110 mm[Hg] Yenny Cha RN [facility] Work Phone: 12-26-2016 09:43-0400 [...] [facility] Work Phone: Encounters Encounter Date Encounter Type Care Provider Facility Start: 03-15-2025 End: 03-15-2025 ambulatory Vinnycaesar Alcalaroberth Facility:[facility] Start: 03-04-2025 ambulatory Bridget Alcalaroberth BRENDA Facility:[facility] Start: 02-22-2025 End: 02-22-2025 [facility] Start: 01-28-2025 ambulatory Riccari Leela GUTIERREZ Facility:[facility] Start: 01-25-2025 End: 01-25-2025 [facility] Start: 12-17-2024 End: 12-17-2024 Sho Andino WORSHIP DIRECTOR-C -[facility] Work Phone: Start: 12-17-2024 End: 12-17-[address] Bridget Swenson MD Work Phone: -[facility] Start: 11-19-2024 End: 11-19-[address] Bridget Swenson MD Work Phone: -Laboratory Start: 11-19-2024 End: 11-19-2024 Sho Andino WORSHIP DIRECTOR-C -Laboratory Work Phone: Start: 11-19-2024 End: 11-19-2024 Sho Andino WORSHIP DIRECTOR-C -[facility] Work Phone: Start: 11-19-2024 End: 11-19-[address] Bridget Swenson MD Work Phone: -[facility] Start: 11-19-2024 End: 11-19-2024 ambulatory Sho Andino Facility:[facility] Start: 11-17-2024 End: 11-17-2024 Dr. Bridget Swenson MD Work Phone: -Emergency Department Work Phone: Start: 11-17-2024 End: 11-17-2024 Emergency department patient visit Dr. Bridget Swenson MD Work Phone: -Emergency Department Start: 10-12-2024 End: 10-13-2024 Emergency department patient visit Nichole Guerra DO Work Phone: [facility] Emergency Medicine Comment on above: Altered mental statu s, unspecified altered mental status type (Primary Dx); UTI (urinary tract infection), bacterial Start: 10-09-2024 Dr. Santino Haas [facility] Work Phone: Start: 10-08-2024 Dr. Santino Haas [facility] Work Phone: Start: 10-07-2024 Dr. Santino Haas [facility] Work Phone: Start: 10-06-2024 ambulatory Santino Gregorio ility:[facility] Start: 10-06-2024 End: 10-09-2024 Evaluation and management of inpatient Dr. Bridget Swenson MD Work Phone: [facility] Work Phone: Start: 10-06-2024 End: 10-09-2024 Dr. Santino Haas DO -Progressive Care Unit Work Phone: Start: 10-05-2024 Dr. Santino Haas [facility] Work Phone: Start: 10-04-2024 Dr. Santino Haas [facility] Work Phone: Start: 10-04-2024 ambulatory Juan José Abel ty:[facility] Start: 10-04-[address] Bridget Swenson MD Work Phone: [facility] Work Phone: Start: 10-04-2024 Dr. Juan José Suarez DO Progressive Care Unit Work Phone: Start: 10-01-2024 End: 10-01-2024 Dr. Bridget Swenson MD Work Phone: -Emergency Department Work Phone: Start: 10-01-2024 End: 10-01-2024 Emergency department patient visit Bridget Swenson Facility:[facility] Start: 09-07-2024 End: 09-07-[address] Bridget Swenson MD Work Phone: [facility] Work Phone: Start: 09-07-2024 End: 09-07-2024 Dr. Zackary Lyon MD -[facility] Work Phone: Start: 09-06-2024 End: 09-06-[address] Bridget Swenson MD Work Phone: [facility] Work Phone: Start: 09-06-2024 End: 09-06-2024 Zackary Lyon MD [facility] Start: 09-06-2024 End: 09-06-2024 ambulatory [facility] [place] Facility:[facility] Start: 09-03-2024 Dr. Charles Sullivan MD -[facility] Work Phone: Start: 09-02-2024 Dr. Charles Sullivan MD -[facility] Work Phone: Start: 09-01-2024 End: 09-03-2024 ambulatory [facility] [place] Facility:[facility] Start: 09-01-2024 End: 09-03-2024 Dr. Charles Sullivan MD -[facility] Work Phone: Start: 08-31-2024 Dr. Charles Sullivan MD -[facility] Work Phone: Start: 08-30-2024 ambulatory [facility] [place] Faci lity:[facility] Start: 08-30-2024 Dr. Evin Mora MD -[facility] Start: 08-30-2024 End: 08-31-2024 ambulatory [facility] [place] Facility:[facility] Start: 08-30-[address] Bridget Swenson MD Work Phone: [facility] Work Phone: Start: 08-30-2024 End: 08-31-2024 Dr. Layla Craig MD -Pro[facility] Work Phone: Start: 07-26-2024 End: 07-26-2024 Tarik MCKEON -[facility] Work Phone: Start: 07-26-2024 End: 07-26-2024 ambulatory Bridget Swenson Facility:[facility] Start: 06-30-2024 End: 07-26-2024 Evaluation and management of inpatient Dr. Bridget Swenson MD Work Phone: [facility] Work Phone: Start: 06-30-2024 End: 07-26-2024 Dr. Aleks Marshall MD -Trans[facility] Start: 06-30-2024 ambulatory Bridget Swenson Faci lity:[facility] Start: 06-26-2024 End: 06-30-2024 Evaluation and management of inpatient BRIDGET SWENSON Facility:[facility] Start: 06-26-2024 End: 06-26-2024 Dr. [facility] Start: 06-26-2024 End: 06-26-2024 Emergency department patient visit Bridget Swenson Facility:[facility] Start: 06-21-2024 End: 06-21-2024 Dr. Bridget Swenson MD -Laboratory, [facility] Start: 06-21-2024 End: 06-21-2024 ambulatory Bridget Swenson Facility:[facility] Start: 06-15-2024 End: 06-15-2024 Patient encounter procedure Jessa Retana MAILING MANAGER.PERSONAL DEVELOPMENT EDUCATOR Work Phone: Cerebrovascular Comment on above: Intracranial hemorrh age (HCC) (Primary Dx); Cerebral amyloid angiopathy (CODE); SAH (subarachnoid hemorrhage) (HCC); PAF (paroxysmal atrial fibrillation) (HCC); Primary hypertension Start: 06-15-2024 End: 06-15-2024 ambulatory JESSA RETANA Facility:[facility] Start: 06-14-2024 End: 06-14-2024 Dr. Aleks Marshall MD -Cat Scan, [facility] Work Phone: Start: 06-14-2024 End: 06-14-2024 ambulatory Bridget Swenson Facility:[facility] Start: 06-03-2024 End: 06-03-2024 Dr. Aleks Marshall MD -[facility], [facility] Work Phone: Start: 06-03-2024 End: 06-03-2024 ambulatory [facility] Facility:[facility] Start: 06-02-2024 End: 06-02-2024 Telephone encounter Jessapriya Pappasmeenu PRADOPERSONAL DEVELOPMENT EDUCATOR Work Phone: Cerebrovascular Comment on above: Opened In Error Start: 05-31-2024 ambulatory Aleks Chi Rolando Facility:[facility] Start: 05-31-2024 Dr. Joyce Rousseau [facility] Work Phone: Start: 05-31-2024 End: 05-31-2024 Dr. Aleks Marshall MD -Cardiovascular Serv ices Work Phone: Start: 05-31-2024 End: 05-31-2024 ambulatory Aleks Chi Rolando Facility:[facility] Start: 05-30-2024 End: 06-15-2024 Evaluation and management of inpatient [facility] Facility:[facility] Start: 05-30-2024 End: 06-15-2024 Dr. Aleks Marshall MD -Transitional Care U nit Start: 05-28-2024 Dr. Joyce Rousseau [facility] Work Phone: Start: 05-27-2024 Dr. Joyce Rousseau [facility] Work Phone: Start: 05-25-2024 Dr. Joyce Rousseau [facility] Work Phone: Start: 05-24-2024 Dr. Joyce Rousseau [facility] Work Phone: Start: 05-21-2024 Dr. Joyce Rousseau [facility] Work Phone: Start: 05-20-2024 Dr. Joyce Rousseau [facility] Work Phone: Start: 05-19-2024 End: 05-19-2024 ambulatory Cari Wong MD, PhD Work Phone: Endovascular Center Comment on above: nsgy DIA-family nsgy DIA Start: 05-19-2024 Dr. Joyce Rousseau [facility] Work Phone: Start: 05-18-2024 Dr. Joyce Rousseau [facility] Work Phone: Start: 05-16-2024 ambulatory Aleks Chi Rolando Facility:[facility] Start: 05-16-2024 End: 05-30-2024 Evaluation and management of inpatient Aleks Chi Rolando Facility:[facility] Start: 05-16-2024 End: 05-30-2024 Dr. Joyce Rousseau DO -Rehab Unit Work Phone: Start: 05-14-2024 End: 05-14-2024 Patient encounter procedure Ip Transesophageal Echo Cardiology Comment on above: Essential (primary) hypertension (Primary Dx) PAF (paroxysmal atri al fibrillation) (HCC) (Primary Dx) Start: 05-14-2024 End: 05-14-2024 ambulatory [facility] Facility:[facility] Start: 05-13-2024 End: 05-13-2024 Orders Only Faby Orozco APRN.PERSONAL DEVELOPMENT EDUCATOR Work Phone: Endovascular Center Comment on above: SAH (subarachnoid he morrhage) (HCC) (Primary Dx) Start: 05-11-2024 Evaluation and management of inpatient [facility] Facility:[facility] Start: 05-11-2024 End: 05-11-2024 ambulatory Norma Moon APRN.PERSONAL DEVELOPMENT EDUCATOR Work Phone: Critical Care Start: 05-11-2024 End: 05-11-2024 Dr. Tylor Hendrickson DO -Emergency Departme nt Work Phone: Start: 05-11-2024 End: 05-11-2024 Emergency department patient visit Tylor Hendrickson Facility:[facility] Start: 04-14-2024 End: 04-14-2024 Dr. Bridget Swenson MD -[facility] Start: 04-14-2024 End: 04-14-2024 ambulatory Bridget Swenson Facility:[facility] Start: 04-01-2024 ambulatory [facility] Facility: [facility] Start: 04-01-2024 End: 04-01-2024 Dr. Tylor Fang MD -[facility] Start: 04-01-2024 End: 04-01-2024 ambulatory [facility] Facility:[facility] Start: 09-09-2023 Non-patient / Non-visit Dr. Bridget Swenson Work Phone: [facility] Start: 09-09-2023 End: 09-09-[address] Bridget Swenson Work Phone: [facility] Work Phone: Start: 09-09-2023 End: 09-09-[address] Bridget Swenson Work Phone: [facility]-Cardiovascular Services Work Phone: Start: 08-27-2023 End: 08-27-[address] [facility] Work Phone: Start: 08-27-2023 End: 08-27-2023 Patient encounter procedure [facility] Work Phone: Start: 08-11-2023 End: 08-11-[address] [facility] Work Phone: Start: 08-11-2023 End: 08-11-2023 Patient encounter procedure [facility] Work Phone: Start: 08-08-2023 End: 08-08-[address] [facility] Work Phone: Start: 08-08-2023 End: 08-08-2023 Patient encounter procedure [facility]-Laboratory,[facility] Work Phone: Start: 08-06-2023 End: 08-06-[address] [facility] Work Phone: Start: 08-06-2023 End: 08-06-2023 Patient encounter procedure [facility] Work Phone: Start: 06-09-2023 End: 06-09-[address] [facility] Work Phone: Start: 06-09-2023 End: 06-09-2023 Patient encounter procedure [facility] Start: 05-12-2023 End: 05-12-2023 Emergency department [facility] Work [facility]: Start: 04-08-2023 End: 04-08-[address] Doyle Swenson Work Phone: [facility] Work Phone: Start: 04-08-2023 End: 04-08-[address] Doyle Swenson Work Phone: [facility] Work Phone: Start: 02-25-2023 End: 02-25-[address] Doyle Swenson Work Phone: [facility] Work Phone: Start: 02-25-2023 End: 02-25-[address] Doyle Swenson Work Phone: [facility] Work Phone: Start: 01-28-2023 End: 01-28-[address] Doyle Swenson Work Phone: [facility] Work Phone: Start: 01-16-2023 Non-patient / Non-visit Dr. Doyle Swenson Work Phone: [facility] Start: 01-16-2023 End: 01-16-[address] Doyle Swenson Work Phone: [facility] Work Phone: Start: 01-16-2023 End: 01-16-[address] Doyle Swenson Work Phone: [facility]-Cardiovascular Services Work Phone: Start: 01-14-2023 End: 01-14-[address] Doyle Swenson Work Phone: [facility] Work Phone: Start: 01-14-2023 End: 01-14-[address] [facility] Work Phone: Start: 12-18-2022 End: 12-18-[address] [facility] Work Phone: Start: 12-18-2022 End: 12-18-2022 [facility] Start: 11-21-2022 End: 11-21-2022 [facility] Start: 11-06-2022 End: 11-06-[address] [facility] Work Phone: Start: 11-06-2022 End: 11-06-2022 [facility] encounter [facility] Start: 10-02-2022 End: 10-02-[address] [facility] Work Phone: Start: 10-02-2022 End: 10-02-2022 Patient encounter [facility] Start: 08-26-2022 End: 08-26-[address] Doyle Swenson Work Phone: [facility] Work Phone: Start: 08-26-2022 End: 08-26-[address] Doyle Swenson Work Phone: [facility] Start: 06-18-2022 End: 06-18-[address] Doyle Swenson Work Phone: [facility]-Outpatient Bone Densitometry Start: 05-20-2022 End: 05-20-[address] Doyle Swenson Work Phone: [facility] Work Phone: Start: 05-20-2022 End: 05-20-[address] Doyle Swenson Work Phone: [facility] Start: 05-20-2022 End: 05-20-2022 Dr. Doyle Swenson Work Phone: [facility] Start: 05-18-2022 End: 05-18-2022 Emergency department patient visit Dr. Doyle Swenson Work Phone: [facility]-Emergency Department Start: 05-18-2022 End: 05-18-2022 Dr. Doyle Swenson Work Phone: [facility]-Emergency Department Start: 05-14-[address] Vinny Swenson Work Phone: [facility] Start: 05-14-2022 Dr. Doyle Swenson Work Phone: [facility] Start: 05-08-2022 End: 05-08-[address] Doyle Swenson Work Phone: [facility] Start: 05-08-2022 End: 05-08-2022 Dr. Doyle Swenson Work Phone: [facility] Start: 04-29-[address] Vinny Swenson Work Phone: [facility] Start: 04-29-2022 Dr. Doyle Swenson Work Phone: [facility] Start: 04-22-2022 End: 04-22-[address] Doyle Swenson Work Phone: [facility] Work Phone: Start: 04-22-2022 End: 04-22-[address] Doyle Swenson Work Phone: [facility] Start: 04-22-2022 End: 04-22-2022 Dr. Doyle Swenson Work Phone: [facility] Start: 04-19-2022 End: 04-19-[address] Doyle Swenson Work Phone: [facility] Start: 04-19-2022 End: 04-19-2022 Dr. Doyle Swenson Work Phone: [facility] Start: 04-18-2022 Non-patient / Non-visit Dr. Doyle Swenson Work Phone: [facility] Start: 04-18-2022 Dr. Doyle Swenson Work Phone: [facility] Start: 04-17-2022 Non-patient / Non-visit Dr. Doyle Swenson Work Phone: [facility] Start: 04-17-2022 Dr. Doyle Swenson Work Phone: [facility] Start: 04-16-2022 Non-patient / Non-visit Dr. Doyle Swenson Work Phone: [facility] Start: 04-16-2022 Dr. Dolye Swenson Work Phone: [facility] Start: 04-15-2022 Non-patient / Non-visit Dr. Doyle Swenson Work Phone: [facility] Start: 04-15-2022 Dr. Doyle Swenson Work Phone: [facility] Start: 04-14-2022 Non-patient / Non-visit Dr. Doyle Swenson Work Phone: [facility] Start: 04-14-2022 Dr. Doyle Swenson Work Phone: [facility] Start: 04-13-2022 Non-patient / Non-visit Dr. Doyle Swenson Work Phone: [facility] Start: 04-13-2022 Dr. Doyle Swenson Work Phone: [facility] Start: 04-12-2022 Non-patient / Non-visit Dr. Doyle Swenson Work Phone: [facility] Start: 04-12-2022 Dr. Doyle Swenson Work Phone: [facility] Start: 04-11-2022 Non-patient / Non-visit Dr. Doyle Swenson Work Phone: [facility] Start: 04-11-2022 Dr. Doyle Swenson Work Phone: [facility] Start: 04-10-2022 Non-patient / Non-visit Dr. Doyle Swenson Work Phone: [facility] Start: 04-10-2022 End: 04-18-2022 Evaluation and management of inpatient [facility]. Doyle [facility] Start: 04-10-2022 End: 04-18-[address] Doyle Swenson Work Phone: [facility] Work Phone: Start: 04-10-2022 End: 04-18-2022 Dr. [facility] Start: 04-08-2022 End: 04-08-[address] Doyle Swenson Work Phone: [facility] Work Phone: Start: 04-08-2022 End: 04-08-[address] Doyle Swenson Work Phone: [facility] Start: 04-08-2022 End: 04-08-2022 Dr. Doyle Swenson Work Phone: [facility] Start: 02-18-2022 Non-patient / Non-visit Dr. Doyle Swenson Work Phone: [facility] Start: 02-18-2022 End: 02-18-[address] Doyle Swenson Work Phone: [facility]-Cardiovascular Services Start: 02-18-2022 End: 02-18-2022 Dr. Doyle Swenson Work Phone: [facility] Start: 02-16-2022 End: 03-18-2022 Evaluation and management of inpatient Dr. Doyle Swenson Work Phone: [facility]-Transitional Care Unit Start: 02-16-2022 End: 03-18-2022 Dr. Doyle Swenson Work Phone: [facility]-Transitional Care Unit Start: 02-15-2022 End: 02-15-[address] Doyle Swenson Work Phone: [facility] Work Phone: Start: 02-15-2022 End: 02-15-[address] Doyle Swenson Work Phone: [facility]-Laboratory, Specimen Start: 02-15-2022 End: 02-15-2022 Dr. Doyle Swenson Work Phone: [facility]-Laboratory, Specimen Start: 02-11-2022 End: 02-14-2022 Evaluation and management of inpatient Dr. Doyle Swenson Work Phone: [facility]-Transitional Care Unit Start: 02-11-2022 End: 02-14-2022 Dr. Doyle [facility] Start: 02-11-2022 Non-patient / Non-visit Dr. Doyle Swenson Work Phone: [facility] Start: 02-11-2022 Dr. Doyle Swenson Work Phone: [facility] Start: 02-10-2022 Non-patient / Non-visit Dr. Doyle Swenson Work Phone: [facility] Start: 02-10-2022 End: 02-11-2022 Evaluation and management of inpatient Dr. Doyle Swenson Work Phone: [facility] Start: 02-10-2022 End: 02-11-2022 Dr. Doyle Swenson Work Phone: [facility] Start: 02-09-2022 Non-patient / Non-visit Dr. Doyle Swenson Work Phone: [facility] Start: 02-09-2022 Dr. Doyle Swenson Work Phone: [facility] Start: 02-09-2022 Evaluation and management of inpatient Dr. Doyle Swenson [facility] Start: 02-09-[address] Doyle Swenson Work Phone: [facility] Work Phone: Start: 02-04-2022 End: 02-04-[address] Doyle Swenson Work Phone: [facility] Work Phone: Start: 02-04-2022 End: 02-04-[address] Doyle Swenson Work Phone: [facility] Start: 02-04-2022 End: 02-04-2022 Dr. Doyle Swenson Work Phone: [facility] Start: 01-01-2022 End: 01-01-[address] Doyle Swenson Work Phone: [facility] Start: 12-20-2021 End: 12-20-[address] Doyle Swenson Work Phone: [facility] Work Phone: Start: 12-20-2021 End: 12-20-[address] Doyle Swenson Work Phone: [facility] Start: 12-18-2021 End: 12-18-[address] Doyle Swenson Work Phone: [facility] Start: 11-22-2021 End: 11-22-[address] Doyle Swenson Work Phone: [facility] Start: 10-29-2021 End: 10-29-[address] Doyle Swenson Work Phone: [facility] Start: 10-04-2021 End: 10-04-[address] Doyle Swenson Work Phone: [facility] Start: 09-27-2021 End: 09-27-[address] Doyle Swenson Work Phone: [facility] Start: 08-14-2021 End: 08-14-[address] Doyle Swenson Work Phone: [facility] Start: 07-27-2021 End: 07-27-[address] Doyle Swenson Work Phone: [facility] Start: 07-25-2021 Non-patient / Non-visit Dr. Doyle Swenson Work Phone: [facility] Start: 07-24-2021 Non-patient / Non-visit Dr. Doyle Swenson Work Phone: [facility] Start: 07-24-2021 Non-patient / Non-visit Dr. Doyle Swenson Work Phone: [facility] Start: 07-24-2021 End: 07-25-2021 Evaluation and management of inpatient Dr. Doyle Swenson [facility] Start: 06-19-2021 End: 06-19-[address] Doyle Swenson Work Phone: [facility] Start: 05-09-2021 End: 05-09-[address] [facility] Start: 05-07-[address] Doyle Swenson Work Phone: [facility] Start: 05-01-2021 End: 05-01-[address] Doyle Swenson Work Phone: [facility] Start: 04-23-[address] Doyle Swenson Work Phone: [facility]-Laboratory, [facility] Date Procedure Procedure Detail Performing Clinician [...] panel - Urine Qualitative by Automated Nichole Ridleyft DO Work Phone: Start: 10-12-2024 Urnls dip stick/tablet reagent auto microscopy Nichole Franco Guerra DO Work Phone: Start: 10-12-2024 Radiologic exam chest single view Nichole Franco Guerra DO Work Phone: Start: 10-12-2024 Thyrotropin [Units/volume] in Serum or Plasma Nichole Ridleyft DO Work Phone: Start: 10-09-2024 Viral antigen [...] Comment: Specimen Type: BLOOD SPEC IMENOrdering Facility: [facility] Address: [address] [place] [address] Performed By: #### T SCR ####[facility] [id number] [place] [id number] [place] Start: 06-26-2024 Plain [...] Comment: Specimen Type: BLOOD SPEC IMENOrdering Facility: [facility] Address: [address] [place] [address] Performed By: #### T SCR ####[facility] BLOOD BANKCLIA [id number] [address] Start: 05-11-2024 CT of head [...] w/least 12 lds w/i&r Tarik H Francy WORSHIP DIRECTOR Work Phone: Start: 09-27-2016 End: 12-26-2016 Follow Up Appt 6 months Jatin Zimmerman Start: 09-27-2016 End: 12-26-2016 MMM Evin [...] End: 03-14-2016 Follow Up Appt 6 months Jatin Zimmerman Start: 03-14-2016 End: 03-14-2016 MMJatin Mora MD Start: 03-14-2016 End: 03-14-2016 Thyrotropin [Units/volume] in Serum or Plasma Evin Mora MD Start: 09-06-2015 End: 09-06-2015 ASSEMBLER MECHANICAL ORDNANCE Yenny Buckley PA-C Work Phone: Start: 09-06-2015 End: 09-06-2015 Follow Up Appt 6 months Yenny Buckley PA-C Work Phone: Start: 05-18-2015 End: 08-08-2015 INR in Platelet poor plasma by Coagulation assay Evin Mora MD Start: 03-10-2015 End: 03-11-2015 Documentation of current medications Evin Mora MD Start: 03-10-2015 End: 03-10-2015 Follow Up Appt 6 months Jatin Zimmerman Start: 03-10-2015 End: 03-10-2015 MMM Evin [...] PA-C Work Phone: Start: 08-11-2014 End: 08-11-2014 ASSEMBLER MECHANICAL ORDNANCE Yenny Buckley PA-C Work Phone: Start: 08-11-2014 [...] 08-12-2014 Thyrotropin [Units/volume] in Serum or Plasma Yneny Buckley PA-C Work Phone: Start: 08-11-2014 End: 08-12-2014 Thyroxine (T4) [Mass/volume] in Serum or Plasma Yenny Buckley PA-C Work Phone: Start: 07-26-2014 End: 08-11-2014 INR in Platelet poor plasma by Coagulation assay Evin Mora MD Start: 06-03-2014 End: 07-26-2014 INR in Platelet poor plasma by Coagulation assay Evin Mora MD Start: 03-17-2014 End: 03-17-2014 Follow Up Appt 6 months Jatin Zimmerman Start: 03-17-2014 End: 03-17-2014 MMM vEin Mora MD Start: 11-17-2013 End: 11-17-2013 ASSEMBLER MECHANICAL ORDNANCE Yenny Buckley PA-C Work Phone: Start: 11-17-2013 End: 11-17-2013 Follow Up Appt 4 months Yenny Buckley PA-C Work Phone: Start: 11-17-2013 End: 11-23-2013 INR in Platelet poor plasma by Coagulation assay Yenny Buckley PA-C Work Phone: Start: 08-18-2013 End: 08-20-2013 24 hour holter monitor Evin Mora MD Start: 08-18-2013 End: 08-18-2013 Follow Up Appt 3 months Jatin Zimmerman Start: 08-18-2013 End: 08-18-2013 LUCERO Mora [...] Author Start: 06-29-2027 Diabetes Screening Diabetes Screening [facility] Start: 06-25-2027 Urine microalbumin profile DTaP,Tdap,Td Vaccine (2 - Td or Tdap) [facility] Start: 05-13-2027 Diabetes Screening Diabetes Screening [facility] Start: 05-11-2027 Diabetes Screening Diabetes Screening [facility] Start: 10-12-2025 Thyroid stimulating hormone measurement TSH Level [facility] Start: 01-10-2025 Influenza vaccination Influenza Vaccine (Season Ended) [facility] Start: 11-17-[address] [facility] Start: 11-17-[address] [facility] Start: 10-09-2024 Patient discharge [facility] Start: 10-06-2024 Admission procedure [facility] Start: 10-05-2024 Speech therapy assessment [facility] Start: 10-04-[address] [facility] Start: 10-04-2024 Application of intermittent pneumatic compression device [facility] Start: 10-04-2024 Following clinical pathway protocol [facility] Start: 10-04-2024 Assessment of risk of venous thromboembolism [facility] Start: 10-04-2024 Documentation procedure [facility] Start: 10-04-2024 Insertion of catheter into peripheral vein [facility] Start: 10-04-2024 Measuring intake and output [facility] Start: 10-04-2024 Providing care according to standard [facility] Start: 10-04-2024 Provision of activity privileges [facility] Start: 10-04-2024 Referral to occupational therapist [facility] Start: 10-04-2024 Referral to service [facility] Start: 10-04-[address] [facility] Start: 10-04-2024 Continuous positive airway pressure ventilation treatment [facility] Start: 10-04-2024 MRI of brain without contrast [facility] Start: 10-04-2024 Verification routine [facility] Start: 10-04-2024 Admission procedure [facility] Start: 10-04-2024 Hospital admission, emergency, from emergency room, medical nature [facility] Start: 10-04-2024 Patient referral to dietitian [facility] Start: 10-03-[address] [facility] Start: 10-03-2024 End: 10-03-2024 [facility] [facility] Start: 10-03-[address] [facility] Start: 10-01-[address] [facility] Start: 10-01-2024 Urine culture [facility] Start: 09-20-2024 End: 09-20-2024 Patient encounter procedure 09/20/2024 8:00 AM EDT Office Visit Neurology [address] [place] [address] Wally Quesada Jr., MD [address] [place] [address] Restless Leg Syndrome Neurology Comment on above: Restless Leg Syndrome Start: 09-03-2024 Patient discharge [facility] Start: 09-02-2024 Application of intermittent pneumatic compression device [facility] Start: 09-02-2024 Speech therapy assessment [facility] Start: 09-01-2024 Referral to occupational therapist [facility] Start: 09-01-2024 Referral to service [facility] Start: 09-01-2024 Following clinical pathway protocol [facility] Start: 09-01-2024 Continuous positive airway pressure ventilation treatment [facility] Start: 09-01-2024 Admission procedure [facility] Start: 09-01-[address] [facility] Start: 09-01-2024 Patient referral to dietitian [facility] Start: 08-31-2024 Patient discharge [facility] Start: 08-31-2024 Referral to service [facility] Start: 08-30-2024 Dual pressure spontaneous ventilation support [facility] Start: 08-30-2024 Application of intermittent pneumatic compression device [facility] Start: 08-30-2024 Continuous pulse oximetry [facility] Start: 08-30-2024 Following clinical pathway protocol [facility] Start: 08-30-2024 Aspiration precautions [facility] Start: 08-30-2024 Assessment of risk of venous thromboembolism [facility] Start: 08-30-2024 Cardiac monitoring [facility] Start: 08-30-2024 Catheterization of vein [facility] Start: 08-30-[address] [facility] Start: 08-30-2024 Elevation of head of bed [facility] Start: 08-30-[address] [facility] Start: 08-30-2024 Insertion of catheter into peripheral vein [facility] Start: 08-30-2024 Measuring intake and output [facility] Start: 08-30-2024 Notification of physician [facility] Start: 08-30-2024 Oxygen therapy [facility] Start: 08-30-2024 Patient referral to [facility] Start: 08-30-2024 Providing care according to standard [facility] Start: 08-30-2024 Provision of activity privileges [facility] Start: 08-30-2024 Referral to occupational therapist [facility] Start: 08-30-2024 Referral to service [facility] Start: 08-30-2024 Speech therapy assessment [facility] Start: 08-30-2024 Telemedicine consultation with patient [facility] Start: 08-30-2024 Tobacco use cessation education [facility] Start: 08-30-2024 Vital signs measurements [facility] Start: 08-30-2024 Admission procedure [facility] Start: 08-30-2024 End: 08-30-[address] [facility] Start: 08-30-2024 Hospital admission, emergency, from emergency room, medical nature [facility] Start: 08-30-[address] [facility] Start: 08-30-2024 Oxygen therapy [facility] Start: 08-30-[address] [facility] Start: 08-30-2024 Patient referral to dietitian [facility] Start: 08-16-2024 End: 08-16-2024 Patient encounter procedure 08/16/2024 11:00 AM EDT Office Visit Cerebrovascular [address] [place] [address] Jessa Retana APRN.PERSONAL DEVELOPMENT EDUCATOR [address] [place] [address] 3 month follow up Cerebrovascular Comment on above: 3 month follow up Start: 07-27-2024 End: 07-27-2024 Patient encounter procedure 07/27/2024 11:00 AM EDT Office Visit Cardiology [address] [place] [address] Toyin Del Castillo MD [address] [place] [address] Evaluation for watchmann device with hx of pAF Cardiology Comment on above: Evaluation for watchmann device with hx of pAF Start: 07-27-2024 End: 07-27-2024 ambulatory 07/27/2024 10:30 AM EDT Results Only Cardiology [address] [place] [address] Evaluation for watchmann device with hx of pAF Cardiology Comment on above: Evaluation for watchmann device with hx of pAF Start: 07-26-2024 Development of care plan [facility] Start: 07-26-2024 Application of elastic bandage [facility] Start: 07-26-2024 Patient discharge [facility] Start: 07-20-2024 Referral to service [facility] Start: 07-20-[address] [facility] Start: 07-09-[address] [facility] Start: 07-06-2024 Palliative care [facility] Start: 07-05-2024 Application of ice collar, cap or bag [facility] Start: 07-01-2024 Speech therapy assessment [facility] Start: 07-01-2024 Development of care plan [facility] Start: 07-01-2024 Developing a treatment plan [facility] Start: 07-01-2024 Application of intermittent pneumatic compression device [facility] Start: 07-01-2024 Provision of activity privileges [facility] Start: 07-01-2024 End: 07-01-[address] [facility] Start: 06-30-2024 Admission procedure [facility] Start: 06-30-2024 Measuring intake and output [facility] Start: 06-30-2024 Patient referral to dietitian [facility] Start: 06-30-2024 Referral to occupational therapist [facility] Start: 06-30-2024 Referral to service [facility] Start: 06-30-2024 Vital signs measurements [facility] Start: 06-30-[address] [facility] Start: 06-26-2024 End: 06-26-[address] [facility] Start: 06-26-2024 End: 06-26-[address] [facility] Start: 06-15-2024 End: 06-15-2024 Patient encounter procedure 06/15/2024 11:00 AM EST Office Visit Cerebrovascular [address] [place] [id number] Jessa Retana APRN.PERSONAL DEVELOPMENT EDUCATOR [address] [place] [address] 30 day hospital discharge SDH/for stroke and nsgy f/up-per Tatiana Cerebrovascular Comment on above: 30 day hospital discharge SDH/for stroke and nsgy f/up-per Tatiana Start: 06-15-2024 Patient discharge [facility] Start: 06-14-2024 End: 06-14-2024 Patient encounter procedure Cat Scan Comment on above: SAH (subarachnoid hemorrhage) (HCC) [I60 .9] 30 day hospital disc harge f/u per tanvi bonilla 05/14/24 Start: 06-14-2024 Development of care plan [facility] Start: 06-13-2024 End: 06-12-2025 CT Head WO contrast CT BRAIN WO IVCON Radiology Routine SAH (subarachnoid hemorrhage) (HCC) Expected: 06/13/2024, Expires: 06/12/2025 [facility] Work Phone: Comment on above: Expected: 06/13/2024, Expires: Start: 06-08-2024 Referral to service [facility] Start: 06-04-[address] [facility] Start: 06-02-[address] [facility] Start: 06-02-[address] [facility] Start: 06-01-2024 Application of elastic bandage [facility] Start: 05-31-2024 Development of care plan [facility] Start: 05-31-2024 Developing a treatment plan [facility] Start: 05-30-2024 Admission procedure [facility] Start: 05-30-2024 Introduction of urinary catheter [facility] Start: 05-30-2024 Measuring intake and output [facility] Start: 05-30-2024 Patient referral to dietitian [facility] Start: 05-30-2024 Referral to occupational therapist [facility] Start: 05-30-2024 Referral to service [facility] Start: 05-30-2024 Vital signs measurements [facility] Start: 05-30-2024 End: 05-30-[address] [facility] Start: 05-29-2024 Removal of urinary catheter [facility] Start: 05-28-2024 Patient discharge [facility] Start: 05-28-2024 Removal of urinary catheter [facility] Start: 05-25-[address] [facility] Start: 05-22-2024 Oxygen therapy [facility] Start: 05-22-[address] [facility] Start: 05-21-[address] [facility] Start: 05-19-[address] [facility] Start: 05-18-2024 Following clinical pathway protocol [facility] Start: 05-18-2024 Insertion of catheter into peripheral vein [facility] Start: 05-18-[address] [facility] Start: 05-16-2024 Application of intermittent pneumatic compression device [facility] Start: 05-16-2024 Recommendation to continue with treatment [facility] Start: 05-16-2024 Referral to service [facility] Start: 05-16-2024 Urinary bladder training [facility] Start: 05-16-2024 Admission procedure [facility] Start: 05-16-2024 Measuring intake and output [facility] Start: 05-16-2024 Patient referral to dietitian [facility] Start: 05-16-2024 Referral to occupational therapist [facility] Start: 05-16-2024 Vital signs measurements [facility] Start: 05-16-[address] [facility] Start: 05-16-2024 Speech therapy assessment [facility] Start: 05-14-2024 End: 05-14-2024 Patient encounter procedure 05/14/2024 4:00 PM EST Office Visit Cardiology [address] [place] [address] Essential (primary) hypertension (Primary Dx) Cardiology Comment on above: Essential (primary) hypertension (Primar y Dx) Start: 05-12-2024 Advance Directive Discussion Advance Directive Discussion [facility] Start: 05-11-[address] [facility] Start: 05-11-2024 Aspiration precautions [facility] Start: 01-11-2024 Covid-19 Vaccine ( season) Covid-19 Vaccine ( season) [facility] Start: 01-11-2024 Covid-19 Vaccine ( season) Covid-19 Vaccine ( season) [facility] Start: 01-11-2024 Influenza vaccination Influenza Vaccine (#1) [facility] Start: 05-12-2023 Advance Directive Discussion Advance Directive Discussion [facility] Start: 05-12-[address] [facility] Start: 04-18-2022 Patient discharge [facility] Start: 04-17-[address] [facility] Start: 04-15-2022 Incentive spirometry [facility] Start: 04-13-2022 Prothrom[address] time [facility] Work Phone: Start: 04-12-2022 [address]rom[address] time [facility] Work Phone: Start: 04-11-2022 Consultation for pain [facility] Start: 04-10-2022 Assessment of risk of venous thromboembolism [facility] Start: 04-10-[address] [facility] Work Phone: Start: 04-10-2022 Insertion of catheter into peripheral vein [facility] Start: 04-10-2022 Oxygen therapy [facility] Work Phone: Start: 04-10-2022 Providing care according to standard [facility] Start: 04-10-2022 Provision of activity privileges [facility] Start: 04-10-2022 Referral to occupational therapist [facility] Start: 04-10-2022 Referral to service [facility] Start: 04-10-[address] [facility] Start: 04-10-2022 Following clinical pathway protocol [facility] Start: 04-10-2022 Verification routine [facility] Work Phone: Start: 04-10-2022 Admission procedure [facility] Start: 04-10-2022 ANES NEUROMD/NTRVRT [facility]/SAC [facility] Start: 04-10-2022 Perq vert agmntj cavity crtj uni/bi cannulj [facility] Start: 03-24-20[address] Blood [address] [facility] Work Phone: Start: 03-21-[address]22 [address] [facility] Work Phone: Start: 03-18-2022 [address]thrombin time [facility] Work Phone: Start: 03-18-2022 Patient discharge [facility] Start: 03-17-2022 Development of care plan [facility] Start: 03-17-2022 Blood chemistry [facility] Work Phone: Start: 03-15-2022 Developing a treatment plan [facility] Start: 03-14-2022 [address]rom[address] time [facility] Work Phone: Start: 03-13-[address] [facility] Start: 03-13-2022 Referral to service [facility] Start: 03-12-[address] [facility] Start: 03-12-[address] Blood [address] [facility] Work Phone: Start: 03-11-[address] [facility] Work Phone: Start: 03-10-[address] [facility] Work Phone: Start: 03-07-[address]22 [address] [facility] Work Phone: Start: 03-05-[address] [facility] Work Phone: Start: 03-04-[address]22 [address] [facility] Work Phone: Start: 03-03-2022 Blood chemistry [facility] Work Phone: Start: 02-28-2022 [address]rom[address] time [facility] Work Phone: Start: 02-27-2022 Speech therapy assessment [facility] Start: 02-26-2022 Blood chemistry [facility] Work Phone: Start: 02-25-[address]rom[address] time [facility] Work Phone: Start: 02-24-2022 Blood chemistry [facility] Work Phone: Start: 02-21-2022 Prothrombin time [facility] Work Phone: Start: 02-19-2022 Verification routine [facility] Work Phone: Start: 02-19-2022 Blood chemistry [facility] Work Phone: Start: 02-18-2022 Prothrombin time [facility] Work Phone: Start: 02-17-2022 Developing a treatment plan [facility] Start: 02-17-2022 Development of care plan [facility] Start: 02-16-2022 End: 02-17-[address] [facility] Start: 02-16-[address] [facility] Work Phone: Start: 02-16-2022 Admission procedure [facility] Start: 02-16-2022 Measuring intake and output [facility] Start: 02-16-2022 Patient referral to dietitian [facility] Start: 02-16-2022 Referral to occupational therapist [facility] Start: 02-16-2022 Referral to service [facility] Start: 02-16-2022 Vital signs measurements [facility] Start: 02-14-2022 Patient discharge [facility] Start: 02-13-2022 Developing a treatment plan [facility] Start: 02-13-[address] [facility] Work Phone: Start: 02-12-2022 Development of care plan [facility] Start: 02-12-2022 Developing a treatment plan [facility] Start: 02-11-2022 Patient referral to dietitian [facility] Start: 02-11-2022 Following clinical pathway protocol [facility] Start: 02-11-2022 Admission procedure [facility] Start: 02-11-2022 Measuring intake and output [facility] Start: 02-11-2022 Patient referral to dietitian [facility] Start: 02-11-2022 Referral to occupational therapist [facility] Start: 02-11-2022 Referral to service [facility] Start: 02-11-2022 Vital signs measurements [facility] Start: 02-11-2022 End: 02-11-[address] [facility] Start: 02-11-2022 Patient discharge [facility] Start: 02-11-2022 Continuous positive airway pressure ventilation treatment [facility] Start: 02-10-2022 Admission procedure [facility] Start: 02-09-2022 Following clinical pathway protocol [facility] Start: 02-09-2022 Assessment of risk of venous thromboembolism [facility] Start: 02-09-2022 Insertion of catheter into peripheral vein [facility] Start: 02-09-2022 Oxygen therapy [facility] Start: 02-09-2022 Providing care according to standard [facility] Start: 02-09-2022 Provision of activity privileges [facility] Start: 02-09-2022 Referral to occupational therapist [facility] Start: 02-09-2022 Referral to service [facility] Start: 02-09-[address] [facility] Start: 02-09-2022 Verification routine [facility] Work Phone: Start: 02-09-2022 Admission procedure [facility] Start: 02-09-[address] [facility] Work Phone: Start: 07-25-2021 Patient discharge [facility] Work Phone: Start: 07-25-2021 Oxygen therapy [facility] Work Phone: Start: 07-24-2021 End: 07-25-[address] [facility] Work Phone: Start: 07-24-2021 Ambulation without limitation [facility] Work Phone: Start: 07-24-2021 Assessment of risk of venous thromboembolism [facility] Work Phone: Start: 07-24-2021 Insertion of catheter into peripheral vein [facility] Work Phone: Start: 07-24-2021 Providing care according to standard [facility] Work Phone: Start: 07-24-2021 Referral to gastroenterology service [facility] Work Phone: Start: 07-24-2021 Admission procedure [facility] Work Phone: Start: 07-24-2021 Following clinical pathway protocol [facility] Work Phone: Start: 07-24-[address] [facility] Work Phone: Start: 04-10-2017 End: 04-10-2017 Appointment Appointment [facility] Work Phone: Start: 12-26-2016 End: 12-26-2016 Ecg routine ecg w/least 12 lds w/i&r EKG (In office) [facility] Work Phone: Start: 09-27-2016 End: 12-26-2016 Follow Up Appt 6 months Follow Up Appt 6 months [facility] Work Phone: Start: 09-27-2016 End: 12-26-2016 MMM MMM [facility] Work Phone: Start: 06-28-2016 End: 08-26-2016 INR Coag RelTime (PPP) *PT/INR - Standing Order [facility] Work Phone: Start: 05-15-2016 End: 05-28-2016 INR Coag RelTime (PPP) *PT/INR - Standing Order [facility] Work Phone: Start: 04-04-2016 Screening for osteoporosis Bone Density Screening [facility] Start: 03-14-2016 End: 03-14-2016 *BMP *BMP [facility] Work Phone: Start: 03-14-2016 End: 03-14-2016 *CBC with Differential *CBC with Differential [facility] Work Phone: Start: 03-14-2016 End: 03-14-2016 Follow Up Appt 6 months Follow Up Appt 6 months [facility] Work Phone: Start: 03-14-2016 End: 03-14-2016 MMM MMM [facility] Work Phone: Start: 03-14-2016 End: 03-14-2016 Thyroid stimulating hormone (TSH) *TSH [facility] Work Phone: Start: 09-06-2015 End: 09-06-2015 ASSEMBLER MECHANICAL ORDNANCE ASSEMBLER MECHANICAL ORDNANCE [facility] Work Phone: Start: 09-06-2015 End: 09-06-2015 Follow Up Appt 6 months Follow Up Appt 6 months [facility] Work Phone: Start: 05-18-2015 End: 08-08-2015 INR Coag RelTime (PPP) *PT/INR - Standing Order [facility] Work Phone: Start: 03-10-2015 End: 03-10-2015 Follow Up Appt 6 months Follow Up Appt 6 months [facility] Work Phone: Start: 03-10-2015 End: 03-10-2015 MMM MMM [facility] Work Phone: Start: 11-28-2014 End: 08-25-2015 INR Coag RelTime (PPP) *PT/INR - Standing Order [facility] Work Phone: Start: 09-20-2014 End: 09-20-2014 Follow Up Appt Other Follow Up Appt Other [facility] Work Phone: Start: 08-11-2014 End: 08-12-2014 *BMP *BMP [facility] Work Phone: Start: 08-11-2014 End: 08-25-2015 *CBC with Differential *CBC with Differential [facility] Work Phone: Start: 08-11-2014 End: 08-12-2014 BNP *Brain Natriuretic Peptide BNP [facility] Work Phone: Start: 08-11-2014 End: 08-11-2014 ASSEMBLER MECHANICAL ORDNANCE ASSEMBLER MECHANICAL ORDNANCE [facility] Work Phone: Start: 08-11-2014 End: 08-11-2014 Follow Up Appt 1 month Follow Up Appt 1 month [facility] Work Phone: Start: 08-11-2014 End: 08-11-2014 Follow Up Appt 6 months Follow Up Appt 6 months [facility] Work Phone: Start: 08-11-2014 End: 08-12-2014 Magnesium *Magnesium [facility] Work Phone: Start: 08-11-2014 End: 08-11-2014 MMM MMM [facility] Work Phone: Start: 08-11-2014 End: 08-12-2014 Thyroid stimulating hormone (TSH) *TSH [facility] Work Phone: Start: 08-11-2014 End: 08-12-2014 Thyroxine (T4) *T4 (Total) [facility] Work Phone: Start: 07-26-2014 End: 08-11-2014 INR Coag RelTime (PPP) *PT/INR - Standing Order [facility] Work Phone: Start: 06-03-2014 End: 07-26-2014 INR Coag RelTime (PPP) *PT/INR - Standing Order [facility] Work Phone: Start: 03-17-2014 End: 03-17-2014 Follow Up Appt 6 months Follow Up Appt 6 months [facility] Work Phone: Start: 03-17-2014 End: 03-17-2014 MMM MMM [facility] Work Phone: Start: 11-17-2013 End: 11-17-2013 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 MECHANICAL ORDNANCE ASSEMBLER MECHANICAL ORDNANCE [facility] Work Phone: Start: 11-17-2013 End: 11-17-2013 Follow Up Appt 4 months Follow Up Appt 4 months [facility] Work Phone: Start: 11-17-2013 End: 11-23-2013 INR Coag RelTime (PPP) *PT/INR - Standing Order [facility] Work Phone: Start: 08-18-2013 End: 08-18-2013 24 hour holter monitor 24 hour holter monitor [facility] Work Phone: Start: 08-18-2013 End: 08-18-2013 Follow Up Appt 3 months Follow Up Appt 3 months [facility] Work Phone: Start: 08-18-2013 End: 08-18-2013 MMM MMM [facility] Work Phone: Start: 06-10-2013 DTaP/Tdap/Td Vaccines (1 - Tdap) DTaP/Tdap/Td Vaccines (1 - Tdap) [facility] Start: 06-10-2013 Urine microalbumin profile DTaP,Tdap,Td Vaccine (1 - Tdap) [facility] Start: 2011 RSV High Risk: (Elderly (60+) or Population) (1 - 1-dose 75+ series) RSV High Risk: (Elderly (60+) or Population) (1 - 1-dose 75+ series) [facility] Start: 2011 RSV Vaccine (1 - 1-dose 75+ series) RSV Vaccine (1 - 1-dose 75+ series) [facility] Start: 02-09-2006 Pneumococcal vaccination Pneumococcal Vaccine (2 of 2 - PCV) [facility] Start: 02-09-2006 Pneumococcal Vaccine: 50+ (2 of 2 - PCV) Pneumococcal Vaccine: 50+ (2 of 2 - PCV) [facility] Start: 1986 Shingrix Vaccine (1 of 2) Shingrix Vaccine (1 of 2) [facility] Start: 1986 Zoster Vaccines (1 of 2) Zoster Vaccines (1 of 2) [facility] Start: 1954 Anxiety Screening Anxiety Screening [facility] Start: 1954 Depression Screening Depression Screening [facility] Start: 1954 Diabetes mellitus screening Diabetes Screening [facility] Start: 1936 Lip[address] Lipid Panel [facility] Start: 1936 Medicare Annual Wellness Visit Medicare Annual Wellness Visit (AWV) [facility] Start: 1936 Screening for osteoporosis Bone Density Scan [facility] End: 10-12-2024 Bacteria identified in Urine by Culture [facility] Work Phone: Comment on above: Once (Lab) for 1 Occurrences starting until 10/12/2024 Basic metabolic 2008 panel with ionized calcium - Serum or Plasma [facility] End: 10-13-2024 ECG 12 Lead ECG 12 Lead ECG STAT Once for 1 Occurrences starting 10/13/2024 until 10/13/2024 [facility] Work Phone: Comment on above: Once for 1 Occurrences starting 10/14/19 25 until 10/13/2024 End: 05-14-2025 ECG COMPLETE ECG COMPLETE ECG Routine PAF (paroxysmal atrial fibrillation) (HCC) 1 Occurrences starting 05/14/2024 until 05/14/2025 [facility] Work Phone: Comment on above: 1 Occurrences starting 05/14/2024 until 05/14/2025 End: 10-12-[address] [facility] Work Phone: Comment on above: Once (Lab) for 1 Occurrences starting until 10/12/2024 End: 10-12-2024 Extra Urine Bah Tube Extra Urine Bah Tube Lab Timed Once for 1 Occurrences starting 10/12/2024 until 10/12/2024 [facility] Work Phone: Comment on above: Once for 1 Occurrences starting 10/13/19 until 10/12/2024 INR in Blood by Coagulation assay [facility] Work Phone: End: 10-12-2024 [facility] Work Phone: Comment on above: Once for 1 Occurrences starting 10/13/19 until 10/12/2024, 1 completed Natriuretic peptide. B prohormone N-Terminal [Mass/volume] in Serum or Plasma [facility] Patient Education [facility] Work Phone: Patient referral [facility] Work Phone: Prothrombin time [facility] Work Phone: Troponin T.cardiac [Mass/volume] in Serum or Plasma by High sensitivity method [facility] End: 10-12-2024 Urinalysis complete W Reflex Culture panel - Urine [facility] Service Area Work Phone: Comment on above: Once (Lab) for 1 Occurrences starting until 10/12/2024 Urine culture Urine Culture [facility] Work Phone: Urine culture [facility] Immunizations Immunization Date Immunization Notes Care Provider Gilson soriano 09-09-2024 pneumococcal polysaccharide vaccine, [address] Bridget Swenson MD Work Phone: [facility] 02-03-2024 influenza, seasonal, injectable, preservative free Dr. Bridget Swenson MD Work Phone: [facility] 02-19-2022 Xiang Pugh Bivale nt Booster Dr. Doyle Swenson Work Phone: [facility] 02-08-2022 influenza, injectabl e, quadrivalent, preservative free Dr. Doyle Swenson Work Phone: [facility] 02-08-2022 influenza, seasonal, injectable Dr. Doyle Swenson Work Phone: [facility] 08-11-2021 Xiang (Moderna) Dr. Hermann Swenson Work Phone: [facility] 03-16-2021 [facility] (Moderna) Dr. Hermann Swenson Work Phone: [facility] 02-13-2021 influenza, injectabl e, quadrivalent, preservative free Dr. Doyle Swenson Work Phone: [facility] 02-13-2021 influenza, seasonal, injectable Dr. Doyle Swenson Work Phone: [facility] 07-07-2020 Covca (Moderna) Dr. Hermann Swenson Work Phone: [facility] 06-09-2020 [facility] (Moderna) Dr. Hermann Swenson Work Phone: [facility] 02-03-2018 influenza, injectabl e, quadrivalent, preservative free Dr. Doyle Swenson Work Phone: [facility] 02-03-2018 influenza, seasonal, injectable Dr. Doyle Swenson Work Phone: [facility] 06-25-2017 tetanus toxoid, redu pat diphtheria toxoid, and acellular pertussis vaccine, adsorbed Dr. Doyle Swenson Work Phone: [facility] 01-15-2017 influenza, injectabl e, quadrivalent, preservative free Dr. Doyle Swenson Work Phone: [facility] 01-15-2017 influenza, seasonal, injectable Dr. Doyle Swenson Work Phone: [facility] 01-30-2016 influenza, injectabl e, quadrivalent, preservative free Dr. Doyle Swenson Work Phone: [facility] 01-30-2016 influenza, seasonal, injectable Dr. Doyle Swenson Work Phone: [facility] 03-30-2015 pneumococcal conjuga te vaccine, [address] Doyle Swenson Work Phone: [facility] 03-06-2015 influenza, injectabl e, quadrivalent, preservative free Dr. Doyle Swenson Work Phone: [facility] 03-06-2015 influenza, seasonal, injectable Dr. Doyle Swenson Work Phone: [facility] 03-01-2015 influenza, injectabl e, quadrivalent, preservative free Dr. Doyle Swenson Work Phone: [facility] 03-01-2015 influenza, seasonal, injectable Dr. Doyle Swenson Work Phone: [facility] 01-12-2014 influenza, injectabl e, quadrivalent, preservative free Dr. Doyle Swenson Work Phone: [facility] 01-12-2014 influenza, seasonal, injectable Dr. Doyle Swenson Work Phone: [facility] 01-12-2014 influenza virus vaccine, unspecified formulation Norma Andrysek MAILING MANAGER.PERSONAL DEVELOPMENT EDUCATOR Work Phone: [facility] 06-09-2013 tetanus and diphther ia toxoids, adsorbed, preservative free, for adult use (2 Lf of tetanus toxoid and 2 Lf of diphtheria toxoid) Norma Andrysek MAILING MANAGER.PERSONAL DEVELOPMENT EDUCATOR Work Phone: [facility] 02-13-2013 influenza virus vaccine, unspecified formulation Norma Andrysek MAILING MANAGER.PERSONAL DEVELOPMENT EDUCATOR Work Phone: [facility] 02-08-2012 influenza virus vaccine, unspecified formulation Norma Andrysek MAILING MANAGER.PERSONAL DEVELOPMENT EDUCATOR Work Phone: [facility] 02-28-2011 influenza virus vaccine, unspecified formulation Norma Andrysek MAILING MANAGER.PERSONAL DEVELOPMENT EDUCATOR Work Phone: [facility] 02-26-2010 influenza virus vaccine, unspecified formulation Norma Andrysek MAILING MANAGER.PERSONAL DEVELOPMENT EDUCATOR Work Phone: [facility] 03-18-2008 influenza virus vaccine, unspecified formulation Norma Andrysek MAILING MANAGER.PERSONAL DEVELOPMENT EDUCATOR Work Phone: [facility] Work Phone: 03-11-2007 influenza virus vaccine, unspecified formulation Norma Moon APRN.[facility] Work Phone: [facility] Work Phone: 02-26-2005 influenza virus vaccine, unspecified formulation Norma Moon APRN.PERSONAL DEVELOPMENT EDUCATOR Work Phone: [facility] 02-09-2005 pneumococcal polysaccharide vaccine, 23 valent Norma Moon APRN.PERSONAL DEVELOPMENT EDUCATOR Work Phone: [facility] 02-22-2004 influenza virus vaccine, unspecified formulation Cari Wong MD, PhD Work Phone: [facility] 05-12-2003 tetanus and diphther ia toxoids, adsorbed, preservative free, for adult use (2 Lf of tetanus toxoid and 2 Lf of diphtheria toxoid) Norma Moon APRN.[facility] Work Phone: [facility] Payers Date Payer Category Payer Self-pay [id number] 2018 [facility] D[facility] SUPPLE[facility] [id number] 15 2018 Medicare supplementa l policy (as second payer) [employer] MEDICARE SELECT SUPPLEMENT [id number] 2012 Unknown [id number] 2004 Unknown [id number]. 1.13.15 [id number] 2004 Unknown [id number] 2001 Medicare [id number]. 1.13.15 [id number] 2001 Medicare [id number] 2001 Medicare [id number] 1936 Unknown [id number] 2.16.840.1.711901.3.57 9.2.1243 Unknown [id number] 2.16.840.1.409585.3.57 9.2.462 Unknown [id number] 2.16.840.1.792910.3.57 9.2.462 Unknown [id number] 2.16.840.1.967855.3.57 9.2.462 Unknown [id number] 2.16.840.1.070586.3.57 9.2.462 Unknown [id number] 2.16.840.1.271586.3.57 9.2.462 Unknown [id number] 2.16.840.1.560974.3.57 9.2.462 Unknown [id number] 2.16.840.1.885607.3.57 9.2.462 Unknown [id number] 2.16.840.1.618900.3.57 9.2.462 Unknown [id number] 2.16.840.1.800097.3.57 9.2.462 Unknown [id number] 2.16.840.1.274011.3.57 9.2.462 Unknown [id number] 2.16.840.1.080622.3.57 9.2.462 Unknown [id number] 2.16.840.1.785251.3.57 9.2.462 Unknown [id number] 2.16.840.1.779413.3.57 9.2.462 Unknown [id number] 2.16.840.1.731005.3.57 9.2.462 Unknown [id number] 2.16.840.1.343890.3.57 9.2.462 Unknown [id number] 2.16.840.1.251574.3.57 9.2.462 Unknown [id number] 2.16.840.1.051422.3.57 9.2.462 Unknown [id number] 2.16840.1.065344.3.57 9.2.462 Unknown [id number] 2.16.840.1.403543.3.57 9.2.462 Unknown [id number] 2.16.840.1.639377.3.57 9.2.462 Unknown [id number] 2.16.840.1.493769.3.57 9.2.462 Unknown [id number] 2.16.840.1.678316.3.57 9.2.462 Unknown [id number] 2.16.840.1.206624.3.57 9.2.462 Unknown [id number] 2.16.840.1.800993.3.57 9.2.462 Unknown [id number] 2.16.840.1.325462.3.57 9.2.462 Unknown [id number] 2.16.840.1.830599.3.57 9.2.462 Unknown [id number] 2.16.840.1.625233.3.57 9.2.462 Unknown [id number] 2.16840.1.404427.3.57 9.2.462 Unknown [id number] 2.16.840.1.386112.3.57 9.2.462 Unknown [id number] 2.16.840.1.925092.3.57 9.2.462 Unknown [id number] 2.16.840.1.727062.3.57 9.2.462 Unknown [id number] 2.16.840.1.847435.3.57 9.2.462 Unknown [id number] 2.16.840.1.936029.3.57 9.2.462 Unknown [id number] 2.16.840.1.032374.3.57 9.2.462 Unknown [id number] 2.16.840.1.318926.3.57 9.2.462 Unknown [id number] 2.16.840.1.033751.3.57 9.2.462 Unknown [id number] 2.16.840.1.714938.3.57 9.2.462 Unknown [id number] 2.16.840.1.124769.3.57 9.2.462 Unknown [id number] 2.16.840.1.189430.3.57 9.2.462 Unknown [id number] 2.16.840.1.759128.3.57 9.2.462 Unknown [id number] 2.16.840.1.391766.3.57 9.2.462 Unknown [id number] 2.16.840.1.159267.3.57 9.2.462 Unknown [id number] 2.16.840.1.046315.3.57 9.2.462 Unknown [id number] 2.16.840.1.287108.3.57 9.2.462 Unknown [id number] 2.16.840.1.731546.3.57 9.2.462 Unknown [id number] 2.16.840.1.669463.3.57 9.2.462 Unknown [id number] 2.16.840.1.655296.3.57 9.2.462 Unknown [id number] 2.16.840.1.494569.3.57 9.2.462 Unknown [id number] 2.16.840.1.410757.3.57 9.2.462 Unknown [id number] 2.16.840.1.597050.3.57 9.2.462 Unknown [id number] 2.16.840.1.225805.3.57 9.2.462 Unknown [id number] 2.16.840.1.053032.3.57 9.2.462 Unknown [id number] 2.16.840.1.382327.3.57 9.2.462 Unknown [id number] 2.16.840.1.749166.3.57 9.2.462 Social History Date Type Detail Facility [facility] Work Phone: Start: 07-24-2021 End: 05-12-2023 Tobacco smoking status RIIS Unknown if ever smoked [facility] Start: 03-28-2019 None [facility] Start: 03-28-2019 With Family [facility] Start: 1935 Sex Assigned At Female W [facility] Start: 10-17-2010 End: 11-17-2024 Tobacco smoking status RIIS Never smoked tobacco [facility] Start: 10-17-2010 Tobacco use and exposure Smokeless tobacco non-user [facility] Start: 12-26-2021 End: 05-14-2024 Alcoholic beverage intake Current non-drinker of alcohol (finding) [facility] Start: 05-14-2024 End: 06-27-2024 History of Social function [facility] Start: 05-14-2024 End: 06-27-2024 Tobacco use panel [facility] Subtotal = 3 or greater suggests DEPRESSION 0 [facility] Start: 1935 Sex assigned at Not on file C [facility] Has the electric, gas, oil, or water company threatened to shut off services in your home in past 12Mo [facility] (I/We) worried whether (my/our) food would run out before (I/we) got money to buy more. Never true [facility] Start: 07-26-2024 End: 08-30-2024 Sex Female (finding) [facility] Start: 08-31-2024 Non-smoker [facility] Start: 10-02-2024 End: 10-13-2024 Exposure to SARS-CoV-2 (event) Unable to assess [facility] Work Phone: NEGATED: Highlighted row [facility] Medical Equipment Procedure Code Equipment Code Equipment [...] Assessment Result Facility 10-09-2024 Functional status Chair [facility] Work Phone: 09-03-2024 Functional status Ambulates [facility] Work Phone: 08-31-2024 Functional status Chair [facility] Work Phone: 07-26-2024 Functional status Ambulates;Up ad ken [facility] Work Phone: 06-15-2024 Functional status Up ad ken;Chair [facility] Work Phone: 05-30-2024 Functional status With Assist of 1 [facility] Work Phone: 05-27-2024 Functional status Bathroom Privilege [facility] Work Phone: 05-16-2024 Are you deaf, or do you have serious difficulty hearing Yes 05/16/2024 1:06 PM Twin Norwood RN Yes [facility] 05-16-2024 Are you blind, or do you have serious difficulty seeing, even when wearing glasses No 05/16/2024 1:06 PM Twin Norwood RN No [facility] 05-16-2024 Do you have serious difficulty walking or climbing stairs Yes 05/16/2024 1:06 PM Twin Norwood RN Yes [facility] 05-16-2024 Do you have difficul ty dressing or bathing Yes 05/16/2024 1:06 PM Twin Norwood RN Yes [facility] 05-16-2024 Because of a physica l, mental, or emotional condition, do you have difficulty doing errands alone such as visiting a physician's office or shopping Yes 05/16/2024 1:06 PM Twin Norwood, ALBERT Yes [facility] 04-18-2022 Functional status Bathroom Privilege [facility] Work Phone: 04-11-2022 Functional status Ambulates [facility] Work Phone: 03-18-2022 Functional status Up ad ken [facility] Work Phone: 02-18-2022 Functional status Ambulates [facility] Work Phone: 02-14-2022 Functional status Chair [facility] Work Phone: 02-11-2022 Functional status Ambulates;Marqeus r;Bedside Commode [facility] Work Phone: 07-25-2021 Functional status Ambulates [facility] Work Phone: Mental Status Date Assessment Result Facility 11-17-2024 Cognitive function Voice/Name [facility] Work Phone: 10-09-2024 Cognitive function Voice/Name [facility] Work Phone: 10-03-2024 Cognitive function Awake;Alert;F ollows Commands [facility] Work Phone: 09-03-2024 Cognitive function Voice/Name [facility] Work Phone: 08-31-2024 Cognitive function Voice/Name [facility] Work Phone: 08-30-2024 Cognitive function Awake;Alert [facility] Work Phone: 07-26-2024 Cognitive function Voice/Name [facility] Work Phone: 07-06-2024 Cognitive function Appropriate [facility] Work Phone: 06-15-2024 Cognitive function Voice/Name [facility] Work Phone: 06-10-2024 Cognitive function Appropriate;[facility]: 05-30-2024 Cognitive function Voice/Name [facility] Work Phone: 05-16-2024 Because of a physica l, mental, or emotional condition, do you have serious difficulty concentrating, remembering, or making decisions No 05/16/2024 1:06 PM Twin Norwood RN [facility] 05-11-2024 Cognitive function Awake;Alert;A ppropriate;Fol lows Commands [facility] Work Phone: 05-12-2023 Cognitive function Level Of Cons ciousness Awake;Alert;Appropriate;Fol lows Commands [facility] Work Phone: 04-18-2022 Cognitive function Voice/Name [facility] Work Phone: 04-11-2022 Cognitive function Voice/Name [facility] Work Phone: 03-18-2022 Cognitive function Voice/Name [facility] Work Phone: 03-17-2022 [facility]: 02-18-2022 Cognitive function Demonstrates ability to follow instructions/comprehend [facility] Work Phone: 02-14-2022 Cognitive function Voice/Name [facility] Work Phone: 02-11-2022 Cognitive function Voice/Name [facility] Work Phone: 02-09-2022 Cognitive function Level Of Cons ciousness Awake;Alert;Appropriate;Fol lows Commands [facility] Work Phone: 07-25-2021 Cognitive function Appropriate;[facility] Work Phone: 07-25-2021 Cognitive function Arousable To Voice/Nam e [facility] Work Phone: Clinical Notes 05-12-2023 to 11-17-2024 Nichole Guerra, DO - 10/13/2024 12:35 AM EDTMark Salvador Guerra, DO - 10/13/2024 12:35 AM EDT Note Date & Type Note Facility 11-17-2024 Radiology Diagnostic study note [facility] 10-13-2024 Physician Emergency department Note HPI Chief Complaint Patient presents with Altered Mental Status Via AFD from [facility]. Facility RN reports she woke up yelling/flailing. LKW 2030 when staff put her to bed. aMri URBAN met in [facility] 89-year-old female presents from [facility] very agitated and upset. Symptoms started approximately [...] Not on file Nichole Guerra DO 10/13/2444 [facility] Work Phone: 10-13-2024 Emergency department Note HPI Chief Complaint Patient presents with Altered Mental Status Via AFD from [facility]. Facility RN reports she woke up yelling/flailing. LKW 2029 when staff put her to bed. Mari URBAN met in [facility] 89-year-old female presents from [facility] very agitated and upset. Symptoms started approximately [...] [MS] ED Course User Index [MS] Nichole Franco GuerraDO Diagnoses as of 10/13/24 0044 Altered mental [...] Guerra DO 10/13/2444 documented in this encounter [facility] Work Phone: 10-09-2024 Discharge summary Note Date/Time October 09, 2024 11:02am [facility] Medical Records Department [address] [place] [address] Discharge Summary 10/09/24 0957 MR#: [id number] Acct: [id number] Name: JOYCE SOLOMON Rep #:[id number] : 1935 89 From: Santino kong DO PCP: Dr. Bridget Swenson MD Status :ADM IN Location: [place] [address] Providers Date of Admission: 10/03/24 Date of [...] mg/mL subcutaneous syringe (Prolia) 60 mg subcut [id number] osteoporosis 10/08/19 aspirin 81 mg chewable tablet [...] is an 89-year-old female who presented to [facility] ED on 10/03/2024 with worsening confusion with [...] alone. Was discharged to SNF at [place] after recent hospitalization in late August. Therapy [...] 10/07/24 14:11 SB (Rec: 10/07/24 14:11 SB [id number]) Nutrition Malnutrition Evidence of Yes Malnutrition Exists [...] Gluten Free diet for Recommendations/ allergies per TELECOMMUNICATIONS PROFESSIONAL consistency/texture recommendations. Changes Continue chocolate magic cup [...] Prolia 60 mg/mL syringe 60 mg SC [id number] Patient Comments: due February Rx Instructions: due [...] with a meal/food Referrals / Follow Up: Bridgte Swenson MD [Primary Care Provider] - Disposition Disposition (needs filled in before D/C Order can be placed): Long Term Facility Charges/Coding Visit Charges Inpatient E&M: 12743 Disch Hosp >30min 10/09/24 1102 <Electronically signed by Santino Haas DO> Cosigner Signature (if applicable): CC: Dr. Santino Haas DO; Dr. Bridget Swenson MD~ Signed [facility] Work Phone: 1(345) 232-203205-31-2025 Discharge summary Author Santino Haas [facility] Note Date/Time October 09, 2024 10:[address] [facility] Medical Records Department [address] [place] [address] Transfer to [facility] MR#: [id number] Acct: [id number] Name: JOYCE SOLOMON Rep #:[id number] : 1935 89 From: Santino kong DO PCP: Dr. Bridget Swenson MD Status :ADM IN Certification of patient admission REQUIRED AT TIME OF ADMISSION. I CERTIFY THAT POST-HOSPITAL ECF SERVICES ARE REQUIRED TO BE GIVEN ON AN IN-PATIENT BASIS BECAUSE OF THE ABOVE NAMED PATIENT'S NEED FOR [facility] CARE ON A CONTINUING BASIS FOR THE CONDITION(S) FOR WHICH HE/SHE WAS RECEIVING IN-PATIENT HOSPITAL SERVICES PRIOR TO HIS/HER TRANSFER TO THE [facility]. 10/09/24 1005<Electronically signed by Santino Haas DO> Diet Diet Order/Speech Therapy: INPATIENT Hospital Diet / Speech Therapy Order(s) 10/07/24 15:51 Diet: Regular - General Food consistency:: Easy to Chew Dietary Modifications:: Gluten Free Type of Dietary Supplement:: [place] Breakfast Diet Comments: Direct sup, meds whole [...] is an 89-year-old female who presented to [facility] ED on 10/03/2024 with worsening confusion with [...] alone. Was discharged to SNF at [place] after recent hospitalization in late August. Therapy [...] Allergies/Procedures Done in Hospital Allergies cefazolin (From Anc) Allergy (Severe, Verified 05/25/25 17:47) Swelling Thoat and mouth swelling silk [...] Regular, Gluten Free diet for allergies per TELECOMMUNICATIONS PROFESSIONAL consistency/texture recommendations. Continue chocolate magic cup with [...] Prolia 60 mg/mL syringe 60 mg SC [id number] Patient Comments: due February Rx Instructions: due [...] in before D/C Order can be placed): Long Term Facility (1) Toxic encephalopathy Qualifiers: Toxic encephalopathy cause: unspecified toxin Qualified Code(s): G92.9 - Unspecified toxic encephalopathy 10/09/24 1005 <Electronically signed by Santino Haas DO> Cosigner Signature (if applicable): CC: Dr. Bridget wSenson MD; Dr. Juan José Suarez DO ~ [facility] Work Phone: 1(437) 750-407305-31-2025 [facility]05-30-2025 Progress note Author Santino [facility] Note Date/Time October 08, 2024 2:38p [facility] Medical Records Department [address] [place] [address] Progress Note - Hospitalist 10/08/24 1152 MR#: [id number] Acct: [id number] Name: JOYCE SOLOMON Rep #:[id number] : 1935 89 From: Santino kong DO PCP: Dr. Bridget Swenson MD Status :ADM IN Location: [place] [address] Reason for Visit Reason for Visit: Diagnoses [...] 10/07/24 14:11 SB (Rec: 10/07/24 14:11 SB [id number]) Nutrition Malnutrition Evidence of Yes Malnutrition Exists [...] Gluten Free diet for Recommendations/ allergies per TELECOMMUNICATIONS PROFESSIONAL consistency/texture recommendations. Changes Continue chocolate magic cup [...] is an 89-year-old female who presented to [facility] ED on 10/03/2024 with worsening confusion with [...] home alone. Was dischargedto SNF at [place] after recent hospitalization in late August. Therapy scores borderline here; planning for SNF in [facility] T[facility] on discharge. Medically ready for [...] 35 minutes. Charges/Coding Visit Charges Inpatient E&M: 28431 Subs Hosp L2 10/08/24 1438 <Electronically signed by Santino Haas DO> Cosigner Signature (if applicable): CC: ~ Signed [facility] Work Phone: 1(119) 140-426905-29-2025 Progress note Author Santino [facility] Note Date/Time October 07, 2024 12:[address] [facility] Medical Records Department [address] [place] [address] Progress Note - Hospitalist 10/07/24 1038 MR#: [id number] Acct: [id number] Name: JOYCE SOLOMON Rep #:[id number] : 1935 89 From: Santino kong DO PCP: Dr. Bridget Swenson MD Status :ADM IN Location: [place] [address] Reason for Visit Reason for Visit: Diagnoses [...] 10/04/24 15:46 VIJAYA (Rec: 10/04/24 15:46 VIJAYA [id number]) Nutrition Malnutrition Evidence of Yes Malnutrition Exists [...] is an 89-year-old female who presented to [facility] ED on 10/03/2024 with worsening confusion with [...] home alone. Was dischargedto SNF at [place] after recent hospitalization in late August. Therapy scores borderline here; planning for SNF in [facility] TCU on discharge. Medically ready for [...] 35 minutes. Charges/Coding Visit Charges Inpatient E&M: 52166 Subs Hosp L2 10/07/24 1242 <Electronically signed by Santino Haas DO> Cosigner Signature (if applicable): CC: ~ Signed [facility] Work Phone: 1(884) 603-260305-28-2025 Progress note Author Santino [facility] Note Date/Time October 06, 2024 2:27p m [facility] Medical Records Department [address] [facility] [place] [address] Progress Note - Hospitalist 10/06/24 135 MR#: [id number] Acct: [id number] Name: JOYCE SOLOMON Rep #:[id number] : 1935 89 From: Santino kong DO PCP: Dr. Bridget Swenson MD Status :ADM CRISTIANA Location: [place] [address] Reason for Visit Reason for Visit: Diagnoses [...] Freq: Status: Active Protocol: Document 10/04/24 15:46 ANTHONYShobha (Rec: 10/04/24 15:46 [facility] [id number]) Nutrition Malnutrition Evidence of Yes Malnutrition Exists [...] is an 89-year-old female who presented to [facility] ED on 10/03/2024 with worsening confusion with [...] home alone. Was dischargedto SNF at [place] after recent hospitalization in late August. Therapy [...] DNR CCA, DNI Expected disposition: Home with HHC versus SNF, 1 to 2 days *Patient notably was admitted under observation status. However, given her acute stroke as above and persistent encephalopathy, will transition patient to inpatient status at this time. Total clinical time spent by myself addressing the patient's medical issues, reviewing all the data, and collaborating with patient's care team: 35 minutes. Charges/Coding Visit Charges Inpatient E&M: 70720 Subs Hosp L2 10/06/24 6207 <Electronically signed by Santino Haas DO> Cosigner Signature (if applicable): CC: ~ Signed [facility] Work Phone: 1(236) 944-208505-27-2025 Progress note Author Santino [facility] Note Date/Time October 05, 2024 1:12p [facility] Medical Records Department [address] [place] [address] Progress Note - Hospitalist 10/05/24 1308 MR#: [id number] Acct: [id number] Name: JOYCE SOLOMON Rep #:[id number] : 1935 89 From: Santino kong DO PCP: Dr. Bridget Swenson MD Status :ADM CRISTIANA Location: [place] [address] Reason for Visit Reason for Visit: Diagnoses [...] 10/04/24 15:46 VIJAYA (Rec: 10/04/24 15:46 VIJAYA [id number]) Nutrition Malnutrition Evidence of Yes Malnutrition Exists [...] is an 89-year-old female who presented to [facility] ED on 10/03/2024 with worsening confusion with [...] home alone. Was dischargedto SNF at [place] after recent hospitalization in late August. Therapy [...] CCA, DNI Expected disposition: Likely home with [facility], 1 to 2 days Total clinical time spent by myself addressing the patient's medical issues, reviewing all the data, and collaborating with patient's care team: 35 minutes. Charges/Coding Visit Charges Inpatient E&M: 99382 Subs Hosp L2 10/05/24 1312 <Electronically signed by Santino Mosteller DO> Cosigner Signature (if applicable): CC: ~ Signed [facility] Work Phone: 1(638) 155-447205-27-2025 Consult note Author Robert Castillo [facility] Note Date/Time October 05, 2024 1:05p jatin [facility] Medical Records Department [address] [place] [address] Consultation - Neurology 10/05/24 1248 MR#: [id number] Acct: [id number] Name: JOYCE SOLOMON Rep #:[id number] : 1935 89 From: Robert Castillo MD PCP: Dr. Bridget Swenson MD Status :ADM CRISTIANA Location: [place] [address] Assessment and Plan: Neuro Assessment/Plan JOYCE SOLOMON [...] wall motion abnormalities of the LV 5. PT/OT/TELECOMMUNICATIONS PROFESSIONAL evaluation 6. Normotension is the goal 7. [...] LVO. Telestroke was consulted for further recommendations. [facility] Medical History (Updated 10/04/24 @ [...] denosumab 60 mg/mL subcutaneous 60 mg subcut [id number] osteoporosis 10/08/19 08/24/21 History syringe (Prolia) aspirin [...] History adopted: No household members: none [facility] number [facility] children: 2 current occupational status: retired current occupational exposures/hazards: No pets and animals: No leisure activities: reading and other history of recent travel: Yes (concert in [place]) Smoking Status: Never smoker alcohol intake: never [...] Freq: Status: Active Protocol: Document 10/04/24 15:46 [facility] (Rec: 10/04/24 15:46 [facility] [id number]) Nutrition Malnutrition Evidence of Yes Malnutrition Exists [...] mls @ 15 mls/hr 10/04/24 02:54 IV .[id number] PRN Saline Flush Sodium Chloride 250 mls @ 15 mls/hr 10/04/24 02:54 IV .[id number] PRN Additional IVPB Infusion Losartan Potassium 100 [...] applicable): CC: Dr. Bridget Swenson MD~ Signed [facility] Work Phone: 1(485) 882-609105-26-2025 Progress note Author Santino [facility] Note Date/Time October 04, 2024 1:56p m [facility] Medical Records Department [address] [place] [address] Progress Note - Hospitalist 10/04/24 1035 MR#: [id number] Acct: [id number] Name: JOYCE SOLOMON Rep #:[id number] : 1935 89 From: Santino kong DO PCP: Dr. Bridget Swenson MD Status :ADM CRISTIANA Location: [place] [address] Reason for Visit Reason for Visit: Diagnoses [...] 79.6 H, Lymph % (Auto) 9.6 L, Stark % (Auto) 9.8, Eos % (Auto) 0.1, [...] Clarity Clear, Urine pH 6.5, Ur Specific [place] 1.010, Urine Protein 30 H, Urine Glucose [...] 71.3 H, Lymph % (Auto) 14.8 L, Stark % (Auto) 11.6 H, Eos % (Auto) [...] ACUTE CERVICAL FRACTURE. DEGENERATIVE CHANGES. Reading Location: [facility] Chest CT 10/03/24 19:44 IMPRESSION: 1. No acute thoracic finding. 2. Chronic findings as described. Reading Location: [facility] Brain CT 10/03/24 19:45 IMPRESSION: No acute intracranial finding. Reading Location: [facility] Hip/Pelvis X-Ray 10/03/24 21:28 IMPRESSION: DEGENERATIVE OSTEOARTHROSIS. NO ACUTE FINDINGS. Reading Location: [facility] Rhythm Strip Rhythm Strip: Sinus Rhythm Rate: [...] is an 89-year-old female who presented to [facility] ED on 10/03/2024 with worsening confusion with [...] home alone. Was dischargedto SNF at [place] after recent hospitalization in late August. Therapy [...] CCA, DNI Expected disposition: Likely home with [facility], 1 to 2 days Total clinical time spent by myself addressing the patient's medical issues, reviewing all the data, and collaborating with patient's care team: 35 minutes. Charges/Coding Visit Charges Inpatient E&M: 82726 Subs Hosp L2 10/04/24 1356 <Electronically signed by Santino Haas DO> Cosigner Signature (if applicable): CC: ~ Signed [facility] Work Phone: 1(646) 628-106505-26-2025 History and physical note Author Juan José Thorpe [facility] Note Date/Time October 04, 2024 6:26a m [facility] Medical Records Department [address] [facility] [place] [address] H&P Exam - Hospitalist 10/03/24 2975 MR#: [id number] Acct: [id number] Name: JOYCE SOLOMON Rep #:[id number] : 1935 89 From: Juan José Butler DO PCP: Dr. Bridget Swenson MD Status :ADM CRISTIANA Location: [place] [address] HPI - General General Date of Admission: [...] for PFO with patient recommendedto go to assisted facility - but with patient refusing and opting to return home who then returned for another admission from September 01, 2024 to 2024 for treatment of hypertensive urgency with altered mental status who now re-presents to [facility] ER after family noted worsening confusion. Unfortunately, this patient has been admitted previously for similar complaint with complete stroke workup done but with patient unwilling to go to correction and family unable understand patient is no longer able to live independently resulting in a pattern of serial readmission. According to the records her family was concerned about her ability to live at home alone becausewhen they went to check on her earlier today she was speaking "gibberish" when home health arrived. She had recently been at [place] [facility]' but apparently could not afford to stay [...] expected to be less than 2 midnights. [facility] Medical History (Updated 10/04/24 @ [...] denosumab 60 mg/mL subcutaneous 60 mg subcut [id number] osteoporosis 10/08/19 08/24/21 History syringe (Prolia) aspirin [...] History adopted: No household members: none housing: [facility] number of children: 2 current occupational status: retired current occupational exposures/hazards: No pets and animals: No leisure activities: reading and other history of recent travel: Yes (concert in [place]) Smoking Status: Never smoker alcohol intake: never [...] 79.6 H, Lymph % (Auto) 9.6 L, Stark % (Auto) 9.8, Eos % (Auto) 0.1, [...] Clarity Clear, Urine pH 6.5, Ur Specific [place] 1.010, Urine Protein 30 H, Urine Glucose [...] ACUTE CERVICAL FRACTURE. DEGENERATIVE CHANGES. Reading Location: [facility] Chest CT 10/03/24 19:44 IMPRESSION: 1. No acute thoracic finding. 2. Chronic findings as described. Reading Location: [facility] Brain CT 10/03/24 19:45 IMPRESSION: No acute intracranial finding. Reading Location: [facility] Hip/Pelvis X-Ray 10/03/24 21:28 IMPRESSION: DEGENERATIVE OSTEOARTHROSIS. NO ACUTE FINDINGS. Reading Location: [facility] Assessment & Plan Assessment/Plan (1) Toxic encephalopathy: [...] for new neurologic insult. We will minimize PROBATION COUNSELOR- active medications. Finally, we will consult PT/OT [...] Mental Status who was discharged to [place] [facility]' with patient unable to afford to [...] forPFO with patient recommended to go to assisted facility - but with patient refusing and [...] 85 minutes. Charges/Coding Visit Charges OBSV E&M: 26163 Observ/hosp same date L3 10/04/24625 <Electronically signed by Juan José Suarez DO> Cosigner Signature (if applicable): CC: Dr. Bridget Swenson MD; Dr. Juan José Suarez DO~ Signed [facility] Work Phone: 1(662) 884-682105-26-2025 Discharge summary Author Diana Snow [facility] Note Date/Time October 04, 2024 12:14 am [facility] Medical Records Department [address] [address] Emergency Department Summary 10/03/24 MR#: [id number] Acct: [id number] Name: JOYCE SOLOMON Rep #:[id number] : [...] arrived. She had recently been in at [facility] but apparently could not afford it. She [...] is significantly worsenedover the past few days. [facility] Medical History Aphasia History of hemorrhagic [...] denosumab 60 mg/mL subcutaneous 60 mg subcut [id number] osteoporosis 10/08/19 08/24/21 History syringe (Prolia) aspirin [...] mg) PO QHS 30 da ys #90 04/22/25 Unknown Rx tabs rosuvastatin 20 mg tablet [...] History adopted: No household members: none housing: [facility] number of children: 2 current occupational status: retired current occupational exposures/hazards: No pets and animals: No leisure activities: reading and other history of recent travel: Yes (concert in [place]) Smoking Status: Never smoker alcohol intake: never [...] 79.6 H Lymph % (Auto) 9.6 L Stark % (Auto) 9.8 Eos % (Auto) 0.1 [...] Clarity Clear Urine pH 6.5 Ur Specific [place] 1.010 Urine Protein 30 H Urine Glucose [...] ACUTE CERVICAL FRACTURE. DEGENERATIVE CHANGES. Reading Location: [facility] Chest CT 10/03/24 19:44 IMPRESSION: 1. No acute thoracic finding. 2. Chronic findings as described. Reading Location: [facility] Brain CT 10/03/24 19:45 IMPRESSION: No acute intracranial finding. Reading Location: [facility] Hip/Pelvis X-Ray 10/03/24 21:28 IMPRESSION: DEGENERATIVE OSTEOARTHROSIS. NO ACUTE FINDINGS. Reading Location: [facility] Rhythm Strip Rhythm Strip: Sinus Rhythm Rate: [...] Prolia 60 mg/mL syringe 60 mg SC [id number] Patient Comments: due February Rx Instructions: due [...] MD [Primary Care Provider] - Print Language: Kuwaiti Disposition Disposition: Acute Care Hospital [facility] What to do if you have Problems For any increased pain, shortness of breath, bleeding, nausea or vomiting, chestpain, or any unexpected problems, contact your Primary Care Provider. Call [facility] ([phone]) or report to the closest Emergency Room. Call 911 if necessary. 10/04/24 001 <Electronically signed by Diana Snow DO> Cosigner Signature (if applicable): CC: Dr. Bridget Swenson MD ~ Signed [facility] Work Phone: [phone]) [phone] Discharge summary Author [facility] Note Date/Time October 04, 2024 12:14 am [facility] Medical Records Department [address] [place] [address] Emergency Department Summary 10/03/24 MR#: [id number] Acct: [id number] Name: JOYCE SOLOMON Rep #:[id number] : [...] She had recently been in at [place] [facility] but apparently could not afford it. [...] is significantly worsenedover the past few days. [facility] Medical History Aphasia History of hemorrhagic [...] denosumab 60 mg/mL subcutaneous 60 mg subcut [id number] osteoporosis 10/08/19 08/24/21 History syringe (Prolia) aspirin [...] history of recent travel: Yes (concert in [place]) Smoking Status: Never smoker alcohol intake: never [...] 79.6 H Lymph % (Auto) 9.6 L Stark % (Auto) 9.8 Eos % (Auto) 0.1 [...] Clarity Clear Urine pH 6.5 Ur Specific [place] 1.010 Urine Protein 30 H Urine Glucose [...] ACUTE CERVICAL FRACTURE. DEGENERATIVE CHANGES. Reading Location: [facility] Chest CT 10/03/24 19:44 IMPRESSION: 1. No acute thoracic finding. 2. Chronic findings as described. Reading Location: [facility] Brain CT 10/03/24 19:45 IMPRESSION: No acute intracranial finding. Reading Location: [facility] Hip/Pelvis X-Ray 10/03/24 21:28 IMPRESSION: DEGENERATIVE OSTEOARTHROSIS. NO ACUTE FINDINGS. Reading Location: [facility] Rhythm Strip Rhythm Strip: Sinus Rhythm Rate: [...] Prolia 60 mg/mL syringe 60 mg SC [id number] Patient Comments: due February Rx Instructions: due [...] MD [Primary Care Provider] - Print Language: Kuwaiti Disposition Disposition: Acute Care Hospital [facility] What to do if you have Problems For any increased pain, shortness of breath, bleeding, nausea or vomiting, chestpain, or any unexpected problems, contact your Primary Care Provider. Call [facility] ([phone]) or report to the closest Emergency Room. Call 911 if necessary. 10/04/24 0014 <Electronically signed by Diana Snow DO> Cosigner Signature (if applicable): CC: Dr. Bridget Swenson MD ~ Signed [facility] Work Phone: 1(201) 529-900605-25-2025 Radiology Diagnostic study [facility]05-25-2025 Radiology Diagnostic study [facility]05-25-2025 Radiology Diagnostic study [facility] 10-03-2024 Radiology Diagnostic study [facility]04-25-2025 [facility]04-22-2025 [facility] 08-30-2024 Evaluation note* Diagnosis Onset Date Resolution [...] Chest pressure inactive November 19, 2024 10:23am [facility] Work Phone: 1(748) 602-901004-21-2025 Evaluation note* Diagnosis Onset Date Resolution Status [...] 2024 2:20pm Chest pressure inactive December 2:20pm [place] [employer] Work Phone: 1(108) 282-528904-21-2025 Radiology Diagnostic study [facility]04-21-2025 Radiology Diagnostic study [facility]04-21-2025 Radiology Diagnostic study [facility] 07-20-2024 Discharge summary Author Aleks Marshall [facility] Note Date/Time July 20, 2024 7:2 7pm [facility] Medical Records Department [address] [place] [address] Discharge Summary 07/20/241914 MR#: [id number] Acct: [id number] Name: JOYCE SOLOMON Rep #:[id number] : 1935 89 From: Aleks Marshall MD PCP: Dr. Bridget Swenson MD Status :ADM IN Location: [facility] TCU01-1 Providers Date of Admission: 06/30/24 Primary [...] mg/mL subcutaneous syringe (Prolia) 60 mg subcut [id number] osteoporosis 10/08/19 aspirin 81 mg chewable tablet [...] disposition determination. Discharge home alone 07/26/2024, [facility] PT/OT/SN, Hospital Bed. Hospital Bed: Patient requires [...] hernia. 2. Pulmonary venous congestion. Reading Location: [facility] D/C Instructions Discharge Diet: No restrictions [...] Additional Instructions: Discharge home alone 07/26/2024, [facility] PT/OT/SN, Hospital Bed. Hospital Bed: Patient requires [...] Providers: Juan José Marshall; Marisol Prather; Jaja Grsos; Sofia Aguila; Monik Crocker NP; Nelsy Copeland Instructions Additional Instructions / Restrictions: Discharge home alone 07/26/2024, [facility] PT/OT/SN, Hospital Bed. Hospital Bed: Patient requires [...] Prolia 60 mg/mL syringe 60 mg SC [id number] Patient Comments: due February Rx Instructions: due [...] Swenson MD; Dr. Aleks Marshall MD~ Signed [facility] Work Phone: 1(160) 944-790903-11-2025 [facility]03-11-2025 Radiology Diagnostic study [facility]02-20-2025 Progress note Author Wanda Caraballo [facility] Note Date/Time July 01, 2024 1:52pm [facility] Medical Records Department [address] [place] [address] Progress Note - Pharmacy 07/01/24 1429 MR#: [id number] Acct: [id number] Name: JOYCE SOLOMON Rep #:[id number] : 1935 89 From: Wanda Caraballo PCP: Dr. Bridget Swenson MD Status :ADM IN Location: [place] [address]-1 TCU RX Drug Regimen Review Subjective/Objective Subjective/Objective [...] Dose Route Start Last Admin Trade Name Micheleq PRN Reason Stop Dose Admin Acetaminophen 1,000 [...] 50 Mg Tablet PO 50 mg BID [facility] Administration Protocol Modafinil 100 mg 07/02/24 10:00 Modafinil 200 Mg Tablet PO DAILY [facility] Polyethylene Glycol 17 gm 07/01/24 10:00 07/01/24 09:29 Polyethylene Glycol 3350 17 Gm Packet PO 17 gm DAILY [facility] Administration Pramipexole Dihydrochloride 3 mg 06/30/24 22:00 06/30/24 21:54 Pramipexole Di-Hcl 1 Mg Tablet PO 3 mg QHS [facility] Administration Senna/Docusate Sodium 1 tablet 06/30/24 22:00 07/01/24 09:29 Senna/Docusate Sodium 1 Tablet PO 1 tablet BID [facility] Administration Tamsulosin HCl 0.4 mg 07/01/24 17:30 Tamsulosin Hcl 0.4 Mg Capsule PO DAILY@1730 [facility] Tramadol HCl 50 mg 06/30/24 19:54 06/30/24 [...] Cosigner Signature (if applicable): CC: ~ Signed [facility] Work Phone: 1(275) 838-714102-20-2025 History and physical note Author Aleks Marshall [facility] Note Date/Time July 01, 2024 6:29am [facility] Medical Records Department [address] [place] [address] History & Physical Exam 06/30/242013 MR#: [id number] Acct: [id number] Name: JOYCE SOLOMON Rep #:[id number] : 1935 89 From: Aleks Marshall MD PCP: Dr. Bridget Swenson MD Status :ADM IN Location: [facility] TCU01-1 HPI - General General Date of Admission: 06/30/24 Date of Service: 07/01/24 Chief Complaint: Here for rehabilitation. HPI Narrative JOYCE SOLOMON, is a 89 Female who presents with followin06/26/2024 Admit to [facility] for ground level fall. Multiple recent [...] rehabilitation, strengthening, prior to discharge home alone. [facility] Medical History (Updated 06/30/24 @ [...] denosumab 60 mg/mL subcutaneous 60 mg subcut [id number] osteoporosis 10/08/19 08/24/21 History syringe (Prolia) Held [...] History adopted: No household members: none [facility] number [facility] children: 2 current occupational status: retired current occupational exposures/hazards: No pets and animals: No leisure activities: reading and other history of recent travel: Yes (concert in [employer]) Smoking Status: Never smoker alcohol intake: never [...] Urinary retention - Tamsulosin 0.4mg daily. 07/01/24 0709 <Electronically signed by Aleks Marshall MD> Cosigner Signature (if applicable): CC: Dr. Bridget Swenson MD; Dr. Aleks Marshall MD~ Signed [facility] Work Phone: 1(519) 915-415702-19-2025 Evaluation note* Diagnosis Onset Date Resolution Status Admit Date Cerebral amyloid angiopathy acute June 30, 2024 6:43pm Debility acute June 30, 2024 6:43pm Essential (primary) hypertension acute June 30 025 6:43pm Insomnia acute June 30, 2024 6:43pm Obstructive sleep apnea acute F [place] 2024 6:43pm Osteoporosis acute June 6:43pm Subarachnoid hemorrhage acute F [facility] 2024 6:43pm Restless leg syndrome chronic Feb [place] 2024 6:43pm Compression fracture of L2 resolved [...] residual deficit inactive October 06, 2024 2:26pm [place] [employer] Work Phone: 1(570) 963-810702-19-2025 Evaluation note* Diagnosis Onset Date Resolution Status [...] 30, 2 025 6:43pm Urine retention resolved February 19th, 2025 6:43pm Afib inactive June 30, 2024 6:43pm [...] fibrillation chron ic November 19, 2024 10:23am [place] [facility] Work Phone: 1(617) 791-562002-19-2025 [facility]02-19-2025 NoteHNO ID: [id number] Author: SHAR GONSALEZ RN Service: Care Management Author Type: Registered Nurse Type: Care Mgt Progress Note Filed: 06/30/2024 13:02 Note Text: CARE MANAGEMENT DISCHARGE NOTE SERVICE DATE: June 30, 2024 SERVICE TIME: 1:01 PM Admission Date: 06/26/2024 LOS: 3 days Discharge Arrangement Discharge Arrangement: Long Term Facility Was an expedited discharge program used?: No Services Arranged Medical Services: Other: See Comment Caregiver Assessment Caregiver is ready, willing and able to meet the patient's needs as recommended by the inter-professional team: Yes Name of Caregiver: [facility] Transportation Arrangements Transportation Arrangements: Ambulance Transportation Agency and Phone #:: [facility] ( [facility] ) [phone] / [phone] Date of Trip: 06/30/24 Time of Trip: 1730 Type of Service: BLS Non-emergency Is Patient Medicaid Pending?: No Was transportation financial coverage discussed with family?: Patient 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 No auth or 7000 needed. Transport packet next to chart and RN to call report. SIGNATURE: Shar Gonsalez RN PATIENT NAME: Joyce Solomon DATE: June 30, 2024 TIME: 1:01 [facility]02-19-2025 NoteHNO ID: [id number] Author: SHAR GONSALEZ RN Service: Care Management Author Type: Registered Nurse Type: Care Mgt Progress Note Filed: 06/30/2024 13:00 Note Text: CARE MANAGEMENT PROGRESS NOTE SERVICE DATE: 06/30/2024 SERVICE TIME: 1:00 PM LOS: 3 days IMM Follow Up Copy Given: Yes Copy given to:: Patient Method: In Person SIGNATURE: Shar Gonsalez RN PATIENT NAME: Joyce Solomon DATE: June 30, 2024 TIME: 1:00 [facility]02-19-2025 NoteHNO ID: [id number] Author: SHAR GONSALEZ RN Service: Care Management Author Type: Registered Nurse Type: Care Mgt Progress Note Filed: 06/30/2024 11:11 Note Text: CARE MANAGEMENT PROGRESS NOTE SERVICE DATE: 06/30/2024 SERVICE TIME: 11:10 AM LOS: 3 days Needs Prior to Discharge: To Be Determined, Accepting Facility, Bed Availability, Discharge [facility] Mery COWART she was transitioned to them prior to dc last time and would prefer her to admit to TCU this time. Referral sent to [facility] via [facility]. Per team she is medically ready for dc and has met her 3 midnight requirement. CM will continue to follow and arrange transport at vt. SIGNATURE: Shar Gonsalez RN PATIENT NAME: Joyce Solomon DATE: June 30, 2024 TIME: 11:10 [facility]02-18-2025 NoteHNO ID: [id number] Author: SHAR GONSALEZ RN Service: Care Management [...] would like to return to [facility]. [facility] tasked to build and send referral. She does not need auth or 7000 but will need transport. Cm will continue to follow. SIGNATURE: Shar Gonsalez RN PATIENT NAME: Joyce Solomon DATE: June 29, 2024 TIME: 11:27 [facility]02-18-2025 NoteHNO ID: [id number] Author: PEEWEE LATIF APRN.CNP Service: General Surgery Author Type: Nurse Practitioner Type: Progress Notes Filed: 06/29/2024 08:12 Note Text: Trauma Surgery Progress Note SERVICE DATE: 06/29/2024 Trauma Service Pager: For questions or concerns Mon-Fri 6a-5p please page [phone]. After 5pm and on Weekends and Holidays, [...] BiLevel Positive Airway Pressure IANDO: Date 06/28/24 07 - 06/29/24 0659 06/29/24 07 - 06/30/24 0659 Shift 7949-7667 6455-6449 9396-5487 24 Hour Total 7942-3379 6149-9708 1927-9197 24 Hour Total INTAKE PO 995 443 6320 PO 104 644 0192 Supplements (mL) 0 0 Shift Total 105 196 2892 OUTPUT Urine 818 443 6942 Urine Incontinence/Not Saved 1 x 1 x Output ( External Collection Device 06/26/24) 379 423 2971 Shift Total 254 358 7367 Weight (kg) 76.2 76.2 76.2 76.2 76.2 [...] CTA HN, CT A (more content not included)...[facility] 06-28-2024 NoteHNO ID: [id number] Author: SHAR GONSALEZ RN Service: Care Management [...] Determined Advance Directives Current Advance Directive: None Rn Oncology Attempted to Assist with AD Completion: Yes [...] General wellness, Be able to go home [place] Choice Explained: [place] of Choice Given: Yes Level of Care [...] Solomon DATE: June 28, 2024 TIME: 12:27 [facility]02-17-2025 NoteHNO ID: [id number] Author: PEEWEE LATIF APRN.CNP Service: General Surgery Author Type: Nurse Practitioner Type: Progress Notes Filed: 06/28/2024 09:18 Note Text: Trauma Surgery Progress Note SERVICE DATE: 06/28/2024 Trauma Service Pager: For questions or concerns Mon-Fri 6a-5p please page [phone]. After 5pm and on Weekends and Holidays, please page [phone] if in ICU or [phone] if on RNF. SUBJECTIVE: No acute overnight [...] 0659 06/28/24 07 - 06/29/24 0659 Shift 1346-8143 9303-6786 4783-8921 24 Hour Total 1146-6198 6825-1170 0250-6994 24 Hour Total INTAKE Shift Total OUTPUT [...] Right 5th metatarsal fracture (more content not included)...[facility]02-17-2025 NoteHNO ID: [id number] Author: TARIK LOPEZ APRN.PERSONAL DEVELOPMENT EDUCATOR Service: Neurosurgery Author Type: Nurse Practitioner Type: [...] 0659 06/28/24 07 - 06/29/24 0659 Shift 9885-2784 6267-1045 1311-5759 24 Hour Total 0751-0351 1863-5782 1035-2150 24 Hour Total INTAKE Shift Total OUTPUT [...] June 28, 2024 TIME: 9:05 AM Pager: [phone]02-04-2025 NoteHNO ID: [id number] Author: JESSA RETANA APRN.CNP Service: ? Author Type: Nurse Practitioner Type: Progress Notes Filed: 06/29/2024 02:01 Note Text: [facility] CENTER Established Visit PCP: Bridget Swenson ([facility]) [address] [id number] CEREBROVASCULAR HISTORY Joyce Solomon (Fran) is a 89 year old female who presents for neurologic evaluation following recent hospitalization for acute SAH (05/11/2024-05/16/2024). Stroke Event Information Jatin Solomon is a 89 yo F w/ PMH HTN, HLD, pAF on warfarin, NEL on CPAP, osteoporosis, secondary hypothyroidism transferred from [facility] May 11, 2024 for ICH monitoring. [...] started on nicardipine and transferred to [facility] for continuation of care. 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 Notes residual slurred speech, left side weakness, [...] administration at her facility CTH completed at [facility] 06/14/24 PAST MEDICAL HISTORY Diagnosis Date [...] tablet 2 tablets (more content not included)... [facility]02-04-2025 History of Present illness Narrative* Jessa Retana APRN.PERSONAL DEVELOPMENT EDUCATOR - 06/15/2024 11:01 AM EST [facility]EREBR[facility]ULAR CENTER Established Visit PCP: Bridget Swenson ([facility]) [address] [address] CEREBROVASCULAR HISTORY Joyce Solomon (Fran) is a 89 year old female who presents for neurologic evaluation following recent hospitalization for acute SAH (05/11/2024-05/16/2024). Stroke Event Information Jatin Solomon is a 89 yo F w/ PMH HTN, HLD, pAF on warfarin, NEL on CPAP, osteoporosis, secondaryhypothyroidism transferred from [facility] May 11, 2024 for ICH monitoring. [...] started on nicardipine and transferred to [facility] for continuation ofcare. iNIHSS 2 for bilateral [...] clinic today accompanied by her daughter, Martha [place] dizzy and faint a couple days prior to hospital presentation, right hand numbness/weakness Discharged to rehab, continues with PT/OT/TELECOMMUNICATIONS PROFESSIONAL. Notes residual slurred speech, left side weakness, [...] administration at her facility CTH completed at [facility] 06/14/24 PAST MEDICAL HISTORY Diagnosis Date [...] GI Upset States had GI bleed Adhes. Gkcr-Rqku-Px* Beets Rash raised injection site when allergy [...] tremor. Sensation: Grossly intact light touch. Coordination: Avwhtx-ta-mzgk without dysmetria bilaterally. Gait: Ambulates easily into [...] which included preparing to see the patient, ndjr-ug-iemb patient care, completing clinical documentation, obtaining and/or reviewing separately obtained history, performing a medically appropriate examination, counseling and educating the patient/family/caregiver, independently interpreting results (not separately reported), and communicating results to the patient/family/caregiver SIGNATURE Jessa Retana APRN.CNP 06/15/2024 documented [facility]01-28-[facility]25 [facility]01-20-2025 [facility]01-19-2025 Evaluation note* Diagnosis Onset Date Resolution Status [...] 12:39am Chronic back pain chronic September 12:39am [facility] Work Phone: 1(676) 228-438101-19-2025 Evaluation note* Diagnosis Onset Date Resolution Status [...] 2:26pm Chronic back pain inactive September 2:26pm [facility] Work Phone: 1(743) 880-157601-19-2025 [facility]01-08-2025 NoteHNO ID: [id number] Author: TATIANA FRAIRE, RN Service: ? Author Type: Registered Nurse Type: Progress Notes Filed: 05/19/2024 10:57 Note Text: Hydraulic Mechanic Endovascular Transitional Care Management Phone Call to [...] Provider Location Dept Phone 06/14/2024 1:00 PM [facility] (I-STAT) Mery Neff [phone] 06/15/2024 11:00 AM JESSA RETANA [facility] [phone] Verification of appointments/change appointment- verified these appts and that a cardiology appt was requested but is at in July. Read in DC summary that they would like sooner cardiology appt. She will call to try to reschedule and possibly get it closer to [facility]. Point of Contact: Are you the best point of contact for patient? yes Verify PCP(add if not on chart)on chart Staff provided office number to contact for f/up questions or concerns.-provided Questions: Questions at the end of the call? none Tatiana Fraire, ALBERT Endovascular Hydraulic Mechanic, [facility] May 19, 2024 10:57 [facility]01-08-2025 History of Present illness Narrative* Tatiana Fraire, RN - 05/19/2024 10:54 AM EST Hydraulic Mechanic Endovascular Transitional Care Management Phone Call to Family Member A transitional care management phone call was conducted today with ashley Thomas after recent hospital discharge on 05/16. The goal of this visit is to review patient progress, confirm appointments, provide office phone number, and answer questions related to patient transition out of the hospital. How is patient feeling/progressing? Doing OK, she has meeting tomorrow with SNF Pending Tests and Appointments: Appointments for Next 60 Days Date Time Provider Location Dept Phone 06/14/2024 1:00 PM [facility] (I-STAT) Mery Neff [phone] 06/15/2024 11:00 AM JESSA RETANA Po [phone] Verification of appointments/change appointment- verified these appts and that a cardiology appt was requested but is at in July. Read in DC summary that they would like sooner cardiology appt. She will call to try to reschedule and possibly get it closer to [place]. Point of Contact: Are you the best point of contact for patient? yes Verify PCP(add if not on chart)on chart Staff provided office number to contact for f/up questions or concerns.-provided Questions: Questions at the end of the call? none Tatiana Fraire RN Endovascular Hydraulic Mechanic, [facility] May 19, 2024 10:57 AM * Elena Ruiz - 05/19/2024 10:40 AM EST Transferred daughter to speak to Tatiana. * Tatiana Fraire RN - 05/19/2024 10:20 AM EST Called daughter, no answer. Left detailed message with appt updates and office number for f/up questions for stroke and nsgy f/up-[facility] and appt with Jessa Retana. Tatiana Fraire RN documented in this encounterParkwood [facility]01-08-2025 NoteHNO ID: [id number] Author: ?, ?, ? Service: ? Author Type: ? Type: Progress Notes Filed: 05/19/2024 10:41 Note Text: Transferred daughter to speak to Tatiana.[facility]01-08-2025 NoteHNO ID: [id number] Author: TATIANA FRAIRE RN Service: ? Author Type: Registered Nurse Type: Progress Notes Filed: 05/19/2024 10:21 Note Text: Called daughter, no answer. Left detailed message with appt updates and office number for f/up questions for stroke and nsgy f/up-[facility] and appt with Jessa Retana. Tatiana Fraire RN[facility]01-[facility]-2025 NoteHNO ID: [id number] Author: TATIANA FRAIRE RN Service: ? Author Type: Registered Nurse Type: Progress Notes Filed: 05/19/2024 09:56 Note Text: Called and spoke with Jaja in case management at [facility].[phone] . She is just assessing pt today to update DC date and disposition, not sure where pt will be going after dc. Tentative DC date 18 days from 05/16. Pt needs CTH and ISMA f/up 4-6 weeks post discharge per message from inpatient nurse practitioner Faby Orozco, around 2/2(as well as stroke f/up already scheduled for 23. They do CT's at [facility], but pt will likely be d/c'd prior to date needed. Jaja will have nurse call to update us so we can schedule accordingly. Office number provided. Tatiana Fraire RNOhio[facility]01-08-2025 History of Present illness Narrative* Tatiana Fraire RN - 05/19/2024 9:50 AM EST Called and spoke with Jaja in case management at [facility].[phone] . She is just assessing pt today to update DC date and disposition, not sure where pt will be going after dc. Tentative DC date 18 days from 05/16. Pt needs CTH and ISMA f/up 4-6 weeks post discharge per message from inpatient nurse practitioner Faby Orozco, around 2/2(as well as stroke f/up already scheduled for 23. They do CT's at [facility], but pt will likely be d/c'd prior to date needed. Jaja owens nurse call to update us so we can schedule accordingly. Office number provided. Tatiana Fraire RN documented in this encounterParkwood Hospital01-08-2025 NotePatient Outreach (NSEVMN) Jatin SOLOMON ([id number]) 1935 F CHT Date Time Provider Department 05/19/24 [facility] WONG [facility] During your visit today, we recorded the following information about you: Tatiana Fraire RN 05/19/2024 9:56 AM Signed Called and spoke with Jaja in case management at [facility].[phone] . She is just assessing pt today to update DC date and disposition, not sure where pt will be going after dc. Tentative DC date 18 days from 05/16. Pt needs CTH and ISMA f/up 4-6 weeks post discharge per message from inpatient nurse practitioner Faby Orozco, around 2/2(as well as stroke f/up already scheduled for 2/3. They do CT's at [facility], but pt will likely be d/c'd prior to date needed. Jaja will have nurse call to update us so we can schedule accordingly. Office number provided. Tatiana Fraire RN Allergies As of Date: 05/19/2024 Noted Allergy Reaction SUTURES 11/26/2012 9 - Itching ACTONEL (RISEDRONATE SODIUM) 11/06/2007 8 - GI Upset Comments: States had GI bleed ADHES. 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 Left detailed message with appt updates and office number for f/up questions for stroke and nsgy f/up-[facility] and appt with Jessa Retana. Tatiana Fraire RN [facility] 05/19/2024 10:41 AM Signed Transferred daughter to speak to Tatiana. Tatiana Fraire RN 05/19/2024 10:57 AM Signed Hydraulic Mechanic Endovascular Transitional Care Management Phone Call to [...] Provider Location Dept Phone 06/14/2024 1:00 PM [facility] (I-STAT) Mery Tamela [phone] 06/15/2024 11:00 AM JESSA RETANA [facility] [phone] Verification of appointments/change appointment- verified these appts [...] the call? none Tatiana Fraire RN Endovascular Hydraulic Mechanic, [facility] May 19, 2024 10:57 AM Allergies As of Date: 05/19/2024 Noted Allergy Reaction SUTURES 11/26/2012 9 - Itching ACTONEL (RISEDRONATE SODIUM) 11/06/2007 8 - GI Upset Comments: States had GI bleed ADHES. [id number] 12/09/2007 BEETS 05/28/2011 2 - Rash Comments: [...] 02/19/2012 Insomnia, unspecified [G47.00] 02/11/2007 02/19/2012 NIGHTMARE [[id number]] 02/11/2007 04/12/2014 LUMBAR RADICULITIS [QIM2489] 02/11/2007 BACKACHE NOS [M54.9] 02/17/2007 MITRAL INSUFFICIENCY [...] [I62.9] 05/11/2024 SAH (subarachnoi (more content not included)...[facility] 05-16-2024 [facility]01-05-2025 Evaluation note* Diagnosis Onset Date Resolution Status Admit Date Cerebral amyloid angiopathy acute May 16, 2024 4:02pm Debility deleted May 16, 2 025 4:02pm Essential (primary) hypertension acute May [...] inactive May 4:02pm Iron deficiency anemia inactive [facility] 2024 4:02pm care home (current) use of anticoagulants inactive May 16 4:02pm Paroxysmal atrial fibrillation inact hemant May 16, 2024 4:02pm Secondary pulmonary arterial hypertension inactive May 16 4:02pm Sleep apnea inactive May 16, 2024 4:02pm Venous insufficiency of both lower extremities inactive May 16, 4:02pm Vitamin D deficiency inactive 2024 4:02pm Atrial fibrillation deleted ry 2024 4:02pm Debility acute May 30, 2024 2:19pm Essential (primary) hypertension acute May 30 2:19pm Hemorrhagic stroke acute 2024 2:19pm Insomnia acute May 30, 2024 2:19pm Obstructive sleep apnea acute J anuary 2024 2:19pm Subarachnoid hemorrhage acute J anuary 2024 2:19pm Restless leg syndrome chronic Robert ua2024 2:19pm Hypomagnesemia resolved May 302024 2:19pm Neuropathic [...] bone of right foot inactive June 6:43pm [facility] Work Phone: 1(340) 524-811001-05-2025 Evaluation note* Diagnosis Onset Date Resolution Status [...] 2024 4:02pm Restless leg syndrome chronic May ua2024 4:02pm Acute cystitis with positive culture resolved May 16 4:02pm Catheter-associated urinary tract infection resolved May 16 4:02pm Daytime somnolence resolved Mayua y 2024 4:02pm Hypomagnesemia resolved May 4:02pm Urine retention resolved May 162024 4:02pm Elevated PTHrP level inactive Favianmayco [place] 2024 4:02pm Hyperlipidemia inactive May 4:02pm Hypothyroidism inactive May 4:02pm Iron deficiency anemia inactive Grant wang 2024 4:02pm care home (current) use of anticoagulants inactive May 16 4:02pm Secondary pulmonary arterial hypertension inactive May 16 4:02pm Sleep apnea inactive May 16, 2024 4:02pm Venous insufficiency of both lower extremities inactive Xin 5th, 2 025 4:02pm Vitamin D deficiency inactive [...] fracture of L3 vertebra resolved June 30 2 025 6:43pm Hypomagnesemia resolved June 122024 [...] fibrillation chron ic July 26, 2024 11:15am [facility] Work Phone: 1(372) 129-473501-05-2025 NoteHNO ID: [id number] Author: DANUTA GALVAN RN Service: Care Management Author Type: Registered Nurse Type: Care Mgt Progress Note Filed: 05/16/2024 12:25 Note Text: CARE MANAGEMENT DISCHARGE NOTE SERVICE DATE: May 16, 2024 SERVICE TIME: 12:24 PM Admission Date: 05/11/2024 LOS: 5 days Discharge Information Row Name Admission (Current) from 05/11/2024 in HOSP MAIN H060 Rehab Facility Agency [facility] Transitional Care Unit SNF Phone# Discharge today to [facility] for [place]. Will send discharge paperwork. Nurse has report number. SIGNATURE: Danuta Galvan RN PATIENT NAME: Jatin Solomon DATE: May 16, 2024 TIME: 12:24 [facility]01-05-2025 NoteHNO ID: [id number] Author: TRDUI BURGOS MD Service: Neurology Stroke Author Type: Resident Type: Progress Notes Filed: 05/16/2024 09:50 Note Text: Documentation Query Please clarify the diagnosis associated with the clinical indicators for this patient "Hypophosphatemia" not present on admission Plan: -Replenish as needed This document will become part of the patient's medical record. Trudi Burgos MD Neurology PGY-3 [id number] 05/16/2024 9:49 [facility]01-04-2025 NoteHNO ID: [id number] Author: CARI WONG MD, PhD Service: Neurology [...] touch COORDINATION: Finger-to- nose-finger intact bilaterally and Nslv-gs-sksy intact bilaterally GAIT: Not assessed DATA: Diagnostic [...] hemorrhage (HCC) (POA: Yes) Current use of custodial anticoagulation (POA: Yes) Restless leg syndrome (POA: [...] Losartan 25mg daily Atenolol 25mg BID Continue STAFF AUDITOR Ropinorole PT/OT following - patient skilled for SNF (plan for D/C Tuesday 05/16) Lines, Drains, and Airways Line Duration Periph (more content not included)...[facility]01-03-2025 Nurse Note* Damari Wiggins RN - [...] By Damari Wiggins RN In Department: CARDIOLOGY [facility]01-03-2025 Nurse Note* Damari Wiggins RN - [...] RN In Department: CARDIOLOGY documented in this encounterParkwood Hospital01-03-2025 NoteHNO ID: [id number] Author: CARI WONG MD, PhD Service: Neurology [...] touch COORDINATION: Finger-to- nose-finger intact bilaterally and Hqrg-js-yeob intact bilaterally GAIT: Not assessed DATA: Diagnostic [...] hemorrhage (HCC) (POA: Yes) Current use of custodial anticoagulation (POA: Yes) Restless leg syndrome (POA: Yes) Obesity, Class I, BMI 30-34.9 (POA: Status not on file) Malnutrition of mild degree (HCC) (POA: Yes) Assessment and Plan: Malnutrition Diagnosis supported by Registered Dietitian:Mild Protein-Calorie Malnutrition Based on: Insufficient Energy Intake Assessment: I have reviewed the result of the m (more content not included)... [facility]01-02-2025 NoteHNO ID: [id number] Author: TRUDI BURGOS MD Service: Neurology Stroke [...] Cari Wong. Trudi Burgos MD Neurology PGY-3 [id number] 05/13/2024 4:04 [facility]01-02-2025 NoteHNO ID: [id number] Author: VANESA MANCIA RDMS Service: ? Author Type: Denier Control Operator Type: Progress Notes Filed: 05/13/2024 14:33 Note Text: Radiology Service Progress Note PATIENT NAME: Jatin Solomon DATE OF SERVICE: May 13, 2024 [...] PATIENT PRESENTS WITH AN IMPLANTABLE OR ATTACHED GEOSPATIAL IMAGERY INTELLIGENCE ANALYST: No RADIOLOGY DEPARTMENT: Ultrasound PERIPHERAL IV DATA: Not applicable SIGNED BY: Vanesa Mancia RDMS May 13, 2024 2:33 [facility]01-02-2025 NoteHNO ID: [id number] Author: FABY OROZCO APRN.CNP Service: Neurosurgery Author Type: Nurse Practitioner Type: Progress Notes Filed: 05/13/2024 13:02 Note Text: SERVICE DATE: 05/13/2024 SERVICE TIME: 1:02 PM NEUROSURGERY PROGRESS NOTE Please page [phone] after 6 PM and on weekends Subjective INTERVAL HPI: Ms. Jatin Solomon denies headaches. She had he MRI this morning. She complains of LUE pain and fatigue. She denies changes in vision, numbness, tingling, new worsening weakness. She endorses fatigue. No acute events overnight. Objective EXAM: 05/13/24 0800 05/13/24 1000 05/13/24 1100 05/13/24 1200 BP: 165/73 167/73 149/71 148/69 Pulse: 72 80 81 73 Resp: 22 29 26 Temp: 36.7 ?C (98 ?F) TempSrc: [...] Yes. 5. Restraints No. 6. Last BM STAFF AUDITOR Assessment AND Plan Active Hospital Problems as of 05/13/2024 Noted - Resolved POA Hospital Essential (primary) hypertension 03/04/2005 - Present Yes Overview 05/13/2014: Home BP Cuff Validated. Home BP: 192/74 Office BP: 189/63 Current Assessment AND Plan Continue atenolol 25 mg daily SBP < 160 > 90 mmhg NEL (obstructive sleep apnea) 10/16/2011 - Present Yes Overview [facility] Current Assessment AND Plan CPAP HS [...] Head stable to slight increase in SAH/ICH 1/2 MRI brain with stable appearance of acute/subacute [...] Head stable to slight increase in SAH/ICH 1/2 MRI brain with stable appearance of acute/subacute [...] SQH for 48 hours Current use of termite control representative anticoagulation 05/11/2024 - Present Yes Current Assessment [...] Prophylaxis/Anticoagulants 05/12/24 0715 activity - mobilize patient (hi,fl) 05/11/24 1830 vte pharmacologic prophylaxis contraindicated ([place],fl) 05/11/24 1830 pneumatic compression stockings (hi,fl) VTE Prophylaxis: Contraindicated for 48 hours Plan of care discussed with: Provider, RN, Patient SIGNATURE: Faby Orozco APRN.CNP PATIENT NAME: Jatin Solomon DATE: May 13, 2024 TIME: 1:02 [facility]01-02-2025 NoteHNO ID: [id number] Author: ROMAIN GIANG ? Service: Pharmacy Author Type: Stock Feeder Type: Plan of Care Filed: 05/13/2024 12:56 Note Text: Insurance investigation completed Patient has active prescription insurance: No - Patient is self-pay, opted out of Part D Insurance loaded into [employer]: None located at this time Test claim was completed to verify insurance is active: Unsuccessful Any questions, please reach out to your medication credit coordinator.[facility]01-02-2025 NoteHNO ID: [id number] Author: SHAMAR DAVIS RPh Service: Pharmacy Author Type: Pharmacist Type: Plan of Care Filed: 05/14/2024 09:28 Note Text: PHARMACY MEDICATION REVIEW Patient Name: Jatin Solomon : 1935 The following medications were updated within the STAFF AUDITOR medication list: Medications ADDED to STAFF AUDITOR medication list [place] 7.5 Mag Ox Ropinirole Medications CHANGED on STAFF AUDITOR medication list Atenolol Medications REMOVED from STAFF AUDITOR medication list Calcium Additional comments: fills with 2 pharmacies ; did have furosemide 40mg BID filled in November, but nothing more recent The below information represents the best possible medication history: Yes Medication history completed by: Pharmacist: Shamar Davis RPh Source of history: [facility] records[facility] [place] [facility] Medication nonadherence identified: Unable to assess Reconciliation completed: Yes All STAFF AUDITOR medications addressed by LIP Patient interested in Bedside Delivery Services or using OP Pharmacy at discharge? Unable to assess Preferred outpatient pharmacy: [facility]- [facility] [place] [address] [address] [facility] - [phone] [address] e- [id number] - [place] [id number] - [address] - [phone] 4875 e- [id number] [place] [place] [id number] - [address] [facility] - [phone] [id number] Allergies: Sutures Itching Actonel [Risedronat* GI Upset Comment:States had GI bleed Adhes. [id number]* Beets Rash Comment:raised injection site when allergy [...] as directed. Facility-Administered Medications: None Shamar Torres [facility] 05/13/2024[facility]01-01-2025 NoteHNO ID: [id number] Author: SUSAN JOHNSON MD Service: Neurosurgery Author Type: Resident Type: Progress Notes Filed: 05/12/2024 10:06 Note Text: Neurosurgery Inpatient Progress [facility]A negative [...] warfarin, NEL, osteoporosis, secondary hypothyroidism transferred from [place] ED May 11, 2024 with RF cortical [...] Susan Johnson MD PGY-4, Neurological Surgery Pager: [phone] Neurosurgery adoption worker: [phone] 10:04 AM 05/12/24 Please page [phone] on weekends and after 6pm[facility] NoteHNO ID: [id number] Author: CLINT BERMUDEZ APRN.PERSONAL DEVELOPMENT EDUCATOR Service: Neurology ICU Author Type: Nurse Practitioner [...] Patient/ designee ICU Disposition: ICU Disposition-POC Detail: Yes-Residential Coordinator notified Prevention: Line Status: None Patricio Status: [...] CPAP Other Current use of termite control representative anticoagulation- (present on admission) heparin for pAF, now on hold Kcentra ordered on arrival Exogenous Class 1 Obesity Medication and Non-Pharmacologic VTE Prophylaxis/Anticoagulants 05/12/24 0715 activity - mobilize patient (hi,fl) 05/11/24 1830 vte pharmacologic prophylaxis contraindicated ([place]) 05/11/24 1830 pneumatic compression stockings ([place]) VTE Prophylaxis: Contraindicated ICH/SAH Plan of care discussed with: Provider, RN, Patient SIGNATURE: Clint Bermudez APRN.CNP PATIENT NAME: Jatin Solomon DATE: May 12, 2024 TIME: 7:26 [facility]01-01-2025 NoteHNO ID: [id number] Author: VEGA VELASQUEZ RT(R) Service: Radiology Author Type: Surgical Orderly Type: Progress Notes Filed: 05/12/2024 05:05 Note Text: Radiology Service Progress Note PATIENT NAME: Jatin Solomon DATE OF SERVICE: May 12, 2024 [...] PATIENT PRESENTS WITH AN IMPLANTABLE OR ATTACHED GEOSPATIAL IMAGERY INTELLIGENCE ANALYST: No RADIOLOGY DEPARTMENT: CT; Exam(s) Completed: Brain PERIPHERAL IV DATA: Not applicable SIGNED BY: RT Tello(R) May 12, 2024 5:05 [facility]12-31-2024 NoteHNO ID: [id number] Author: JESIKA HALL RT(Peter) Service: Radiology Author Type: Technologist Type: Progress [...] PATIENT PRESENTS WITH AN IMPLANTABLE OR ATTACHED GEOSPATIAL IMAGERY INTELLIGENCE ANALYST: No ALLERGIES: Reviewed and unchanged CONTRAST ALLERGY: [...] CTA Brain , and CTA Neck SIGNATURE: Jesika Faruki, RT(R) PATIENT NAME: Jatin Solomon DATE: May 11, 2024 TIME: 8:47 [facility]12-31-2024 NoteHNO ID: [id number] Author: NORMA MONO APRN.CNP Service: ? Author Type: Nurse Practitioner Type: Progress Notes Filed: 05/11/2024 20:04 Note Text: CRITICAL CARE TRANSPORT MEDICAL CONTROL CONSULT NOTE Patient Name: Jatin Solomon Service Date: May 11, 2024 Referring Facility: [facility] Accepting Facility: [facility] REASON FOR TRANSPORT: higher level neurosurgical care REASON FOR CONSULT: BP management CCT MEDICAL CONTROL CONSULT SUMMARY: History, physical exam findings, and available background patient information from [facility] Transport Nurse were reviewed at the time of consult. Pertinent additional information was reviewed as follows: [facility] transport request log In brief, Jatin Solomon is a 89 year old female with a history, known at time of consult, significant for afib on coumadin who presented to [facility] for evaluation of left arm weakness. CT + for IPH, treated with vitamin K and cardene infusion PLAN: Multiple factors considered including: patient history/condition/trajectory/stability, referring and receiving destinations, duration of transport time, medications and therapies available during transport, patient safety, as well as crew capabilities. Orders given for: cardene titration Plan of care and orders confirmed and read back via telephone with [facility] Transport in flight crew member, David Campos RN SIGNATURE: Norma Moon APRN.CNP Acute Care Nurse Practitioner Critical Care [facility] History of Present illness Narrative* Norma Moon APRN.CNP - 05/11/2024 5:19 PM EST Images from the original note were not included. CRITICAL CARE TRANSPORT MEDICAL CONTROL CONSULT NOTE Patient Name: Jatin Solomon Service Date: May 11, 2024 Referring Facility: [facility] Accepting Facility: [facility] REASON FOR TRANSPORT: higher level neurosurgical care REASON FOR CONSULT: BP management CCT MEDICAL CONTROL CONSULT SUMMARY: History, physical exam findings, and available background patient information from [facility] Transport Nurse were reviewed at the time of consult. Pertinent additional information was reviewed as follows: [facility] transport request log In brief, Jatin Solomon is a 89 year old female with a history, known at time of consult, significant for afib on coumadin who presented to [facility] for evaluation of left arm weakness. CT + for IPH, treated with vitamin K and cardene infusion PLAN: Multiple factors considered including: patient history/condition/trajectory/stability, referring and receiving destinations, duration of transport time, medications and therapies available during rae sport, patient safety, as well as crew capabilities. Orders given for: cardene titration Plan of care and orders confirmed and read back via telephone with [facility] Transport in flight crew member, David Campos RN SIGNATURE: Norma Moon APRN.CNP Acute Care Nurse Practitioner Critical Care Transport [facility] Discharge summary Author Duglas Shields [facility] May 12, 2023 10:03am Note Date/Time May 12, 2023 7: 50am [facility] Medical Records Department [address] [place] [id number] Emergency Department Summary 05/12/23 MR#: [id number] Acct: [id number] Name: JOYCE SOLOMON Rep #:[id number] : [...] and ended up testing positive for COVID. Patientjustin has no urinary symptoms. [facility] Medical History (Updated 05/12/23 @ 10:02 [...] mg/mL subcutaneous syringe (Prolia) 60 mg subcut [id number] osteoporosis 10/08/19 [History Last Taken 08/24/21] calcium [...] History adopted: No household members: none [facility] number of children: 2 current occupational status: retired current occupational exposures/hazards: No pets and animals: No leisure activities: reading and other history of recent travel: Yes (concert in [place]) Smoking Status: Never smoker alcohol intake: never [...] (Auto) 65.0 Lymph % (Auto) 13.0 L [place] % (Auto) 19.2 H Eos % (Auto) [...] Clarity Clear Urine pH 8.0 Ur Specific [place] 1.010 Urine Protein 30 H Urine Glucose [...] Prolia 60 mg/mL syringe 60 mg SC [id number] Patient Comments: due February Rx Instructions: due [...] your Primary Care Provider. Call [facility] ([phone]) or report to the closest Emergency Room. Call 911 if necessary. 05/12/23 1003 <Electronically signed by Duglas Shields MD> Cosigner Signature (if applicable): CC: Dr. Doyle Swenson MD ~ Signed [facility] Work Phone: evaluation note* Diagnosis Onset Date Resolution Status Dyspnea on exertion chronic Essential (primary) hypertension chronic Paroxysmal atrial fibrillation chronic Hematemesis resolved [facility] Work Phone: evaluation note* Diagnosis Onset Date Resolution Status Hematemesis resolved [facility] Work Phone: evaluation note* Diagnosis Onset Date Resolution Status Hematemesis resolved Elevated C-reactive protein (CRP) acute Ileitis acute [facility] Work Phone: Evaluation note* Diagnosis Onset Date Resolution Status Elevated C-reactive protein (CRP) acute Ileitis acute Elevated C-reactive protein (CRP) acute [facility] Work Phone: evaluation note* Diagnosis Onset Date Resolution Status Elevated C-reactive protein (CRP) acute Ileitis acute Elevated C-reactive protein (CRP) acute Dyspnea on exertion chronic Essential (primary) hypertension chronic Paroxysmal atrial fibrillation chronic [facility] Work Phone: evaluation note* Diagnosis Onset Date Resolution Status Elevated C-reactive protein (CRP) acute Dyspnea on exertion chronic Essential (primary) hypertension chronic Paroxysmal atrial fibrillation [facility] Work Phone: Evaluation note* Diagnosis Onset Date Resolution Status Elevated C-reactive protein (CRP) acute Dyspnea on exertion chronic Essential (primary) hypertension chronic Paroxysmal atrial fibrillation chronic Debility acute Intractable low back pain ac [place] Unable to ambulate acute [facility] Work Phone: Evaluation note* Diagnosis Onset Date Resolution Status Elevated C-reactive protein (CRP) acute Dyspnea on exertion chronic Essential (primary) hypertension chronic Paroxysmal atrial fibrillation chronic Debility acute Intractable low back pain ac [place] Unable to ambulate acute Atrial fibrillation acute Compression fracture of L3 vertebra acute Debility acute Edema acute Hypomagnesemia acute Intractable low back pain [place] Iron deficiency anemia acute Osteoporosis acute Restless leg syndrome acute Vitamin D deficiency acute Hypertension [facility] Work Phone: Evaluation note* Diagnosis Onset Date Resolution Status Elevated C-reactive protein (CRP) acute Dyspnea on exertion chronic Essential (primary) hypertension chronic Paroxysmal atrial fibrillation chronic Debility acute Intractable low back pain ac [place] Unable to ambulate acute Atrial fibrillation acute Compression fracture of L3 vertebra acute Debility acute Edema acute Hypomagnesemia acute Intractable low back pain ac [place] Iron deficiency anemia acute Osteoporosis acute Restless leg syndrome acute Vitamin D deficiency acute Hypertension chronic Atrial fibrillation acute Compression fracture of L3 vertebra acute Debility acute Edema acute Hypomagnesemia acute Intractable low back pain ac [place] Iron deficiency anemia acute Osteoporosis acute Restless [...] pain re solved Lower back pain acute [facility] Work Phone: Evaluation note* Diagnosis Onset Date [...] vertebra acute Intractable low back pain [place] Lower back pain acute Supratherapeutic INR acute [facility] Work Phone: Evaluation note* Diagnosis Onset Date [...] Debility acute Intractable low back pain [place] Lower back pain acute Supratherapeutic INR acute [facility] Work Phone: Evaluation note* Diagnosis Onset Date [...] back pain resolved Supratherapeutic INR resolve d [facility] Work Phone: Evaluation noteNo assessment information available [facility] Work Phone: Evaluation note* Diagnosis Onset Date Resolution Status Dyspnea on exertion chronic Essential (primary) hypertension chronic Paroxysmal atrial fibrillation chronic [facility] Work Phone: Evaluation note* Diagnosis SAH (subarachnoid hemorrhage) (HCC)- Primary Subarachnoid hemorrhage Intracranial hemorrhage (HCC) Unspecified intracranial hemorrhage SAH (subarachnoid hemorrhage) (HCC) Subarachnoid hemorrhage Intracranial hemorrhage (HCC) Unspecified intracranial hemorrhage NEL (obstructive sleep apnea) Obstructive sleep apnea (adult) (pediatric) PAF (paroxysmal atrial fibrillation) (HCC) Atrial fibrillation Current use of custodial anticoagulation Long-term (current) use of anticoagulants Restless [...] Unspecified essential hypertension [facility] Diagnosis Altered mental status, unspecified altered mental status type- Primary UTI (urinary tract infection), bacterial documented in this encounter [facility] Work Phone: Evaluation note* Diagnosis SAH (subarachnoid hemorrhage) (HCC)- Primary Subarachnoid hemorrhage Intracranial hemorrhage (HCC) Unspecified intracranial hemorrhage SAH (subarachnoid hemorrhage) (HCC) Subarachnoid hemorrhage Intracranial hemorrhage (HCC) Unspecified intracranial hemorrhage NEL (obstructive sleep apnea) Obstructive sleep apnea (adult) (pediatric) PAF (paroxysmal atrial fibrillation) (HCC) Atrial fibrillation Current use of termite control representative anticoagulation Long-term (current) use of anticoagulants Restless leg syndrome Restless legs syndrome (RLS) Essential (primary) hypertension Unspecified essential hypertension Obesity, Class I, BMI 30-34.9 Obesity, unspecified Malnutrition of mild degree (HCC) Malnutrition of mild degree Essential (primary) hypertension- Primary Unspecified essential hypertension [facility]* Diagnosis SAH (subarachnoid hemorrhage) (HCC)- Primary Subarachnoid hemorrhage Intracranial hemorrhage (HCC) Unspecified intracranial hemorrhage SAH (subarachnoid hemorrhage) (HCC) Subarachnoid hemorrhage Intracranial hemorrhage (HCC) Unspecified intracranial hemorrhage NEL (obstructive sleep apnea) Obstructive sleep apnea (adult) (pediatric) PAF (paroxysmal atrial fibrillation) (HCC) Atrial fibrillation Current use of custodial anticoagulation Long-term (current) use of anticoagulants Restless leg syndrome Restless legs syndrome (RLS) Essential (primary) hypertension Unspecified essential hypertension Obesity, Class I, BMI 30-34.9 Obesity, unspecified Malnutrition of mild degree (HCC) Malnutrition of mild degree SAH (subarachnoid hemorrhage) (HCC)- Primary Subarachnoid hemorrhage [facility]* Diagnosis SAH (subarachnoid hemorrhage) (HCC)- Primary Subarachnoid hemorrhage Intracranial hemorrhage (HCC) Unspecified intracranial hemorrhage SAH (subarachnoid hemorrhage) (HCC) Subarachnoid hemorrhage Intracranial hemorrhage (HCC) Unspecified intracranial hemorrhage NEL (obstructive sleep apnea) Obstructive sleep apnea (adult) (pediatric) PAF (paroxysmal atrial fibrillation) (HCC) Atrial fibrillation Current use of custodial anticoagulation Long-term (current) use of anticoagulants Restless leg syndrome Restless legs syndrome (RLS) Essential (primary) hypertension Unspecified essential hypertension Obesity, Class I, BMI 30-34.9 Obesity, unspecified Malnutrition of mild degree (HCC) Malnutrition of mild degree PAF (paroxysmal atrial fibrillation) (HCC)- Primary Atrial fibrillation Essential (primary) hypertension- Primary Unspecified essential hypertension [facility] Additional Instructions Ice or cool compresses to your chest wall. Tylenol for pain. Follow-up if not improving or return if a lot worse. Your chest x-ray today showed old rib fractures. But no acute process. No collapsed lung. No acute rib fractures. [facility] Work Phone: Hospital Discharge instructions Additional Instructions Discharge home alone 07/26/2024, [facility] PT/OT/SN, Hospital Bed. Hospital Bed: Patient requires a hospital bed due to needing frequent changes in position to alleviate pain, prevent ongoing pressure areas, assist in healing of current pressure areas, prevent aspiration or due to respiratory condition that is not feasible in an ordinary bed.[facility] Work Phone: Hospital Discharge instructions* Attachments The following attachments cannot be sent through Care Everywhere. * Urinary Tract Infection, Adult ED ([place]) [facility]: Reason for referral (narrative)* Outpatient Procedure (Routine) - Authorized Specialty Diagnoses / Procedures Referred By Contac t Referred To [facility] Diagnoses PAF (paroxysmal atrial fibrillation) [facility] Procedures ECG COMPLETE ECG ROUTINE ECG W/LEAST 12 LDS W/I&R Toyin Del Castillo MD [address] [place] [address] [facility] [address] [place] [address] Referral ID Status Reason Start Date Expiration Date Visits Requested Visits Authorized [id number] Authorized Auto-Generat ed Referral 05/14/2024 05/14/2025 1 1 [facility] Chief Complaint and Reason for Visit Chief [...] 4:02pm Acute cystitis with positive culture Robert abdi2024 4:02pm Catheter-associated urinary tract infect ion May 16, 2024 4:02pm Daytime somnolence May 16, 2024 4: 02pm Hypomagnesemia May 16, 2024 4: 02pm Urine retention May 16, 2024 4: 02pm Elevated PTHrP level May 16, 2024 4 :02pm Hyperlipidemia May 16, 2024 4: 02pm Hypothyroidism May 16, 2024 4: 02pm Iron deficiency anemia May 16, 2024 4:02pm 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 May 16, [...] 30, 2024 6:43pm Essential (primary) hypertension uar 2024 6:43pm Insomnia June 30, 2024 6:43pm [...] Iron deficiency anemia May 16, 2024 4:02pm 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 May 16, [...] 30, 2024 6:43pm Essential (primary) hypertension uar 2024 6:43pm Insomnia June 30, 2024 6:43pm [...] WORSENING CONFUSI ON September 03, 2024 12:09pm [facility] September 06, 2024 4 :00am [...] 2024 2:26p m Chief Complaint Admit Date [facility] May 30, 2024 2 :19pm fall [...] WORSENING CONFUSI ON September 03, 2024 12:09pm [facility] September 06, 2024 4 :00am [...] WORSENING CONFUSI ON September 03, 2024 12:09pm [facility] September 06, 2024 4 :00am [...] Osteoporosis June 30, 2024 6:43pm Subarachnoid hemorrhage February 19th, 2 025 6:43pm Restless leg syndrome June [...] WORSENING CONFUSI ON September 03, 2024 12:09pm [facility] September 06, 2024 4 :00am [...] WORSENING CONFUSI ON September 03, 2024 12:09pm [facility] WORK September 06, 2024 4 :00am [...] WORSENING CONFUSI ON September 03, 2024 12:09pm [facility] WORK September 06, 2024 4 :00am [...] WORSENING CONFUSI ON September 03, 2024 12:09pm [facility] WORK September 06, 2024 4 :00am [...] WORSENING CONFUSI ON September 03, 2024 12:09pm [facility] September 06, 2024 4 :00am [...] Yes July 24, 2021 8:58am Power of Chart Reader Yes July 24 8:58am Advance Directive Response Recorded Date/ Time Name of Medical Power of Chart Reader daughter Martha and grandson Rogelio July 24, 2021 8:58am Advance Directives Yes October 04 1:23pm Living Will Yes October 04, 2021 1 :23pm Power of Chart Reader Yes October 04, 2021 1:23pm Advance Directive Response Recorded Date/ Time Advance Directives Yes October 04 1:23pm Living Will Yes October 04, 2021 1 :23pm Power of Chart Reader Yes October 04, 2021 1:23pm Advance Directive Response Recorded Date/ Time Advance Directives Yes October 04 1:23pm Living Will No February 09 5:05pm Power of Chart Reader No February 09 5:05pm Advance Directive Response Recorded Date/ Time Name of Medical Power of Chart Reader Kizzy Herrmannallison Gotti February 09, 2022 10:05pm Advance Directives Yes October 04 1:23pm Living Will Yes February 09 10:05pm Power of Chart Reader Yes February 09 10:05pm Advance Directive Response Recorded Date/ Time Name of Medical Power of Chart Reader Kizzy Herrmannallison Gotti February 09, 2022 10:05pm Name of Medical Power of Chart Reader Martha Hdz, daughter February 12, 2022 10:23am Advance Directives Yes October 04 1:23pm Living Will Yes February 12 10:23am Power of Chart Reader Yes February 12 10:23am Advance Directive Response Recorded Date/ Time Name of Medical Power of Chart Reader Kizzy Herrmannallison Gotti February 09, 2022 10:05pm Name of Medical Power of Chart Reader Martha Hdz, daughter February 12, 2022 10:23am Name of Medical Power of Chart Reader Martha Hdz, daughter February 18, 2022 9:35am Advance Directives Yes October 04 1:23pm Living Will Yes February 18 9:35am Power of Chart Reader Yes February 18, 2022 9:35am Advance Directive Response Recorded Date/ Time Name of Medical Power of Chart Reader Kizzy Herrmannallison Gotti February 09, 2022 9:05pm Name of Medical Power of Chart Reader Martha Hdz, daughter February 12, 2022 9:23am Name of Medical Power of Chart Reader Martha Hdz, daughter February 18, 2022 8:35am Advance Directives Yes October 04 12:23pm Living Will Yes February 18 8:35am Power of Chart Reader Yes February 18, 2022 8:35am Advance Directive Response Recorded Date/ Time Name of Medical Power of Chart Reader Rogelio Herrmann February 09, 2022 9:05pm Name of Medical Power of Chart Reader Martha Hdz, daughter February 12, 2022 9:23am Name of Medical Power of Chart Reader Martha Hdz, daughter February 18, 2022 8:35am Name of Medical Power of Chart Reader svetlana gotti-son April 10, 2022 6:40pm Advance Directives Yes October 04 12:23pm Living Will Yes April 10 022 6:40pm Power of Chart Reader Yes April 10, 2022 6:40pm Advance Directive Response Recorded Date/ Time Name of Medical Power of Chart Reader Rogelio Herrmann February 09, 2022 9:05pm Name of Medical Power of Chart Reader Martha Hdz, daughter February 12, 2022 9:23am Name of Medical Power of Chart Reader Martha Hdz, daughter February 18, 2022 8:35am Name of Medical Power of Chart Reader martha yung - daughter April 10, 2022 10:43pm Advance Directives Yes October 04 12:23pm Living Will Yes April 10 022 10:43pm Power of Chart Reader Yes April 10, 2022 10:43pm Advance Directive Response Recorded Date/ Time Name of Medical Power of Chart Reader Rogelio Herrmann February 09, 2022 9:05pm Name of Medical Power of Chart Reader Martha Hdz, daughter February 12, 2022 9:23am Name of Medical Power of Chart Reader Martha Hdz, daughter February 18, 2022 8:35am Name of Medical Power of Chart Reader martha yung - daughter April 10, 2022 10:43pm Advance Directives Yes October 04 12:23pm Living Will No May 18 3 4:38pm Power of Chart Reader No May 18 023 4:38pm Advance Directive Response Recorded Date/ Time Advance Directives Yes October 04 1:23pm Living Will No May 18 3 5:38pm Power of Chart Reader No May 18 023 5:38pm Advance Directive Response Recorded Date/ Time Advance Directives Yes October 04 12:23pm Living Will No May 18 4:38pm Power of Chart Reader No May 18 4:38pm Advance Directive Response Recorded Date/ Time Name of Medical Power of Chart Reader martha hdz / daughter May 12, 2023 7:36am Advance Directives Yes October 04 12:23pm Living Will Yes May 12 7:36am Power of Chart Reader Yes May 12 7:36am Advance Directive Response Recorded Date/ Time Advance Directives Yes October 04 1:23pm Living Will Yes May 12 8:36am Power of Chart Reader Yes May 12 8:36am Name of Medical Power of Chart Reader martha hdz / daughter May 12, 2023 8:36am Advance Directive Response Recorded Date/ Time Advance Directives Yes October 04 1:23pm Living Will Yes May 12 8:36am Power of Chart Reader Yes May 12 8:36am Date Activated Date [...] Yes November 03, 2023 6:47pm Power of Chart Reader Yes November 02 6:47pm Living Will Yes May 11 12:52pm Power of Chart Reader Yes May 11, 2024 12:52pm Name of Medical Power of Chart Reader martha May 11, 2024 12:52pm Living Will Yes May 18 10:49am Power of Chart Reader Yes May 18 10:49am Name of Medical Power of Chart Reader Martha Hdz, daughter May 18, 2024 10:49am Living Will Yes May 31 4:39pm Power of Chart Reader Yes May 31, 2024 4:39pm Name of Medical Power of Chart Reader Martha Hdz, daughter May 31, 2024 4:39pm Living Will Yes July 01 025 5:00pm Power of Chart Reader Yes July 01, 2024 5:00pm Name of Medical Power of Chart Reader Martha Hdz, daughter July 01, 2024 5:00pm Living Will No June 26 025 1:31pm Power of Chart Reader No June 26, 2024 1:31pm Advance Directives Yes October 04 1:23pm Advance Directive Response Recorded Date/ Time Living Will Yes November 03, 2023 6:47pm Do you have a Healthcare Pow er of Chart Reader? Yes November 03, 2023 6:47pm Living Will Yes May 11 12:52pm Do you have a Healthcare Pow er of Chart Reader? Yes May 11, 2024 12:52pm Name of Medical Power of Chart Reader martha May 11, 2024 12:52pm Living Will Yes May 18 10:49am Do you have a Healthcare Pow er of Chart Reader? Yes May 18, 2024 10:49am Name of Medical Power of Chart Reader Martha Hdz, daughter May 18, 2024 10:49am Living Will Yes May 31 4:39pm Do you have a Healthcare Pow er of Chart Reader? Yes May 31, 2024 4:39pm Name of Medical Power of Chart Reader Martha Hdz, daughter May 31, 2024 4:39pm Living Will Yes July 01 025 5:00pm Do you have a Healthcare Pow er of Chart Reader? Yes July 01, 2024 5:00pm Name of Medical Power of Chart Reader Martha Hdz, daughter July 01, 2024 5:00pm Living Will Yes August 30, 2024 10:27am Do you have a Healthcare Pow er of Chart Reader? Yes August 30, 2024 10:27am Name of Medical Power of Chart Reader DAUGHTER MARTHA August 30, 2024 10:27am Living Will No June 26 1:31pm Do you have a Healthcare Pow er of Chart Reader? No June 26, 2024 1:31pm Advance Directives Yes October 04 1:23pm Advance Directive Response Recorded Date/ Time Living Will Yes November 03, 2023 6:47pm Do you have a Healthcare Pow er of Chart Reader? Yes November 03, 2023 6:47pm Living Will Yes May 31 4:39pm Do you have a Healthcare Pow er of Chart Reader? Yes May 31, 2024 4:39pm Name of Medical Power of Chart Reader Martha Hdz, daughter May 31, 2024 4:39pm Living Will Yes July 01 5:00pm Do you have a Healthcare Pow er of Chart Reader? Yes July 01, 2024 5:00pm Name of Medical Power of Chart Reader Martha Hdz, daughter July 01, 2024 5:00pm Living Will Yes August 30, 2024 2:42pm Do you have a Healthcare Pow er of Chart Reader? Yes August 30, 2024 2:42pm Name of Medical Power of Chart Reader ASHLEY THOMAS August 30, 2024 2:42pm Do you have a Healthcare Pow er of Chart Reader? Yes September 01, 2024 3:03am Do you have a Healthcare Pow er of Chart Reader? Yes October 01, 2024 4:22pm Living Will No June 26 1:31pm Do you have a Healthcare Pow er of Chart Reader? No June 26, 2024 1:31pm Do you have a Healthcare Pow er of Chart Reader? Yes October 03, 2024 7:05pm Advance Directives Yes October 04 1:23pm Advance Directive Response Recorded Date/ Time Living Will Yes November 03, 2023 6:47pm Do you have a Healthcare Pow er of Chart Reader? Yes November 03, 2023 6:47pm Living Will Yes May 31 4:39pm Do you have a Healthcare Pow er of Chart Reader? Yes May 31, 2024 4:39pm Name of Medical Power of Chart Reader Martha Hdz, daughter May 31, 2024 4:39pm Living Will Yes July 01 5:00pm Do you have a Healthcare Pow er of Chart Reader? Yes July 01, 2024 5:00pm Name of Medical Power of Chart Reader Martha Hdz, daughter July 01, 2024 5:00pm Living Will Yes August 30, 2024 2:42pm Do you have a Healthcare Pow er of Chart Reader? Yes August 30, 2024 2:42pm Name of Medical Power of Chart Reader DAUGHTER MARTHA August 30, 2024 2:42pm Do you have a Healthcare Pow er of Chart Reader? Yes September 01, 2024 3:03am Do you have a Healthcare Pow er of Chart Reader? Yes October 01, 2024 4:22pm Living Will No June 26 1:31pm Do you have a Healthcare Pow er of Chart Reader? No June 26, 2024 1:31pm Do you have a Healthcare Pow er of Chart Reader? Yes October 04, 2024 2:54am Advance Directives Yes October 04 1:23pm Date Activated Date Inactivated Comments 05/12/2024 7:20 AM Question Answer Comments Full Code Order Discussed With: Patient Advance Directive Response Recorded Date/ Time Living Will Yes November 03, 2023 6:47pm Do you have a Healthcare Pow er of Chart Reader? Yes November 03, 2023 6:47pm Living Will Yes July 01 5:00pm Do you have a Healthcare Pow er of Chart Reader? Yes July 01, 2024 5:00pm Name of Medical Power of Chart Reader Martha Hdz, daughter July 01, 2024 5:00pm Living Will Yes August 30, 2024 2:42pm Do you have a Healthcare Pow er of Chart Reader? Yes August 30, 2024 2:42pm Name of Medical Power of Chart Reader DAUGHTER MARTHA August 30, 2024 2:42pm Do you have a Healthcare Pow er of Chart Reader? Yes September 01, 2024 3:03am Do you have a Healthcare Pow er of Chart Reader? Yes October 01, 2024 4:22pm Do you have a Healthcare Pow er of Chart Reader? Yes October 04, 2024 2:54am Advance Directives Yes October 04 1:23pm Advance Directive Response Recorded Date/ Time Living Will Yes November 03, 2023 6:47pm Do you have a Healthcare Pow er of Chart Reader? Yes November 03, 2023 6:47pm Living Will Yes July 01 5:00pm Do you have a Healthcare Pow er of Chart Reader? Yes July 01, 2024 5:00pm Name of Medical Power of Chart Reader Martha Hdz, daughter July 01, 2024 5:00pm Living Will Yes August 30, 2024 2:42pm Do you have a Healthcare Pow er of Chart Reader? Yes August 30, 2024 2:42pm Name of Medical Power of Chart Reader DAUGHTER MARTHA August 30, 2024 2:42pm Do you have a Healthcare Pow er of Chart Reader? Yes September 01, 2024 3:03am Do you have a Healthcare Pow er of Chart Reader? Yes October 01, 2024 4:22pm Do you have a Healthcare Pow er of Chart Reader? Yes October 04, 2024 2:54am Do you have a Healthcare Pow er of Chart Reader? Yes November 17, 2024 1:02pm Name of Medical Power of Chart Reader Martha Borges November 17, 2024 1:02pm Advance Directives Yes October 04 1:23pm Advance Directive Response Recorded Date/ Time Living Will Yes August 30, 2024 2:42pm Do you have a Healthcare Pow er of Chart Reader? Yes August 30, 2024 2:42pm Name of Medical Power of Chart Reader DAUGHTER BONITA DRAPER August 30, 2024 2:42pm Do you have a Healthcare Pow er of Chart Reader? Yes September 01, 2024 3:03am Do you have a Healthcare Pow er of Chart Reader? Yes October 01, 2024 4:22pm Do you have a Healthcare Pow er of Chart Reader? Yes October 04, 2024 2:54am Do you have a Healthcare Pow er of Chart Reader? Yes November 17, 2024 1:02pm Name of Medical Power of Chart Reader Martha Shah wyatt November 17, 2024 1:02pm Advance Directives Yes October 04 1:23pm Summary Purpose Reason for Referral Specialty Diagnoses / Procedures Referred By Nelson t Referred To Contact CT IMAGING Diagnoses SAH (subarachnoid hemorrhage) (HCC) Procedures CT BRAIN WO IVCON CT HEAD/BRAIN W/O CONTRAST MATERIAL Faby Orozco, MAILING MANAGER.PERSONAL DEVELOPMENT EDUCATOR [id number] [place] [address] [place] [id number] Referral ID Status Reason Start Date Expiration Date Visits Requested Visits Authorized [id number] New Request Auto-Generat ed Referral 06/13/2024 06/12/2025 [...] Primary Care Provider Activ e Richa Arrieta WORSHIP DIRECTOR, WORSHIP DIRECTOR-C Attending Provider Active Team Status: Inactive Member [...] Care Provider Activ e Dr. Diana Snow DO Emergency Provider Active Dr. Richy Ferguson MD Admit Provider, Other Provide r Active Dr. Vito Hunter MD Other Provider Active Dr. Hood Maza MD Attending Provider Active Dr. Fely Jimenez MD Other Provider Active Team Status: Inactive Member Role Status Dates Dr. Doyle Swesnon MD Primary Care Provider Activ e Zackary Lyon MD Attending Provider Active Team Status: Active Member Role Status Dates Dr. Doyle Swenson MD Primary Care Provider Ivonne Lyon MD Attending Provider Active Team Status: Inactive Member Role Status Dates Dr. Doyle Swenson MD Primary Care Provider Activ e Dr. Juan Antonio Chaudhary MD Attending Provider, Emergency Pro vider Active Team Status: Active Member Role Status Dates Dr. Doyle Swenson MD Primary Care Provider Activ Loraine GUTIREREZ MD Attending Provider Active Team Status: Inactive Member Role Status Dates Dr. Doyle Swenson MD Primary Care Provider Activ salvador Charles MD Attending Provider Active Team Status: Inactive Member Role Status Dates Dr. Doyle Swenson MD Primary Care Provider Activ salvador Ferrell NP-C Attending Provider Active Team Status: [...] Swenson MD Primary Care Provider Acti ve WORSHIP DIRECTOR. Aurora Esquivel Attending Provider, Referring Provid er Active [facility] [employer] [facility] Relationship Specialty Start Date End Date Bridget Swenson MD [address] [place], [place] [address] [place] [address] PCP - General Family Medicine 05/14/24 Cari Wong MD, PhD [address] [place] [address] Cerebrovascular 05/19/24 [employer] Relationship Specialty Start Date End Date Bridget Swenson MD [facility] [place] [address] PCP - General Family Medicine 05/14/24 Cari Wong MD, PhD [address] [place], [place] [id number] Cerebrovascular 05/19/24 [facility] [employer] Relationship Specialty Start Date End Date Bridget Swenson MD [address] [place] [id number] PCP - General Family Medicine 05/14/24 Cari Wong MD, PhD [address] [place] [address] Cerebrovascular 05/19/24 [facility] [employer] [facility] Relationship Specialty Start Date End Date Bridget Swenson MD [address] [place] [id number] PCP - General Family Medicine 05/14/24 Cari Wong MD, PhD [address] [place] [address] Cerebrovascular 05/19/24 Team Status: Active Member Role [...] Inactive Member Role Status Dates Dr. Bridget Swenosn MD Primary [...] S tart: May 31, 2024 Dr. Aleks aMrshall MD Referring Provider Active Start: May 31, [...] Status: Inactive Member Role Status Dates Dr. Bridegt Swenson MD Primary Care Provider Acti ve [...] End: July 26, 2024 Monik Crocker NP, WORSHIP DIRECTOR-C Other Provider Active Start: June 30, 2024 [...] 2024 End: July 26, 2024 Tarik Sen WORSHIP DIRECTOR, WORSHIP DIRECTOR-C Attending Provider Active S tart: July 26, [...] 30, 2024 End: August 31, 2024 Dr. Emmei Diaz MD Other Provider Active Start: August [...] 2024 End: August 31, 2024 Dr. Boom Mairscal MD Other Provider Active St art: August [...] 04, 2024 Dr. Juan José Suarez DO Other Provider Active Start: October 04, [...] Ayesha Choi MD Other Provider Active Start: Nh 2024 Dr. Jean Carlos Fritz MD Other [...] Ayesha Choi MD Other Provider Active Start: [facility] 2024 Dr. Jean Carlos Fritz MD Other [...] 09, 2024 Dr. Juan José Suarez , Other [...] 07, 2024 Dr. Juan José Suarez , Other Provider Active Start: October 07, 2024 Dr. Santino Haas , Attending Provider Active Start: October 07, 2024 [...] Other Provider Active Start: October 09, 2024 [employer] [facility] Relationship Specialty Start Date End Date Generic Provider, No Assigned Pcp, [place] [address] PCP - General [employer] Builder 10/12/24 10/12/24 Bridget Swenson MD [address], [place] [id number] PCP - General Family Medicine 10/13/24 Team Status: Inactive Member Role Status Dates Dr. Bridget Swenson MD Primary Care Provider Acti ve Start: September 06, 2024 End: September 06, 2024 Zackary GUTIERREZ MD Attending Provider Active Start: September 06, 2024 End: September 06, 2024 Zackary GUTIERREZ MD Referring Provider Active Start: September 06, 2024 End: September 06, 2024 [facility] [employer] [facility] Relationship Specialty Start Date End Date Bridget Swenson MD [address] [place], [place] [id number] PCP - General Family Medicine 05/14/24 [facility] [employer] [facility] Relationship Specialty Start Date End Date Bridget Swenson MD [address] [place], [place] [id number] PCP - General Family Medicine 05/14/24 Team Status: Inactive Member Role Status Dates Dr. Bridget Swenson MD Primary Care Provider Acti ve Start: September 06, 2024 End: September 06, 2024 Richa Arrieta WORSHIP DIRECTOR, WORSHIP DIRECTOR-C Attending Provider Active Start: September 06, 2024 [...] End: July 26, 2024 Monik Crocker NP, WORSHIP DIRECTOR-C Other Provider Active Start: June 30, 2024 [...] 2024 End: July 26, 2024 Tarik Sen WORSHIP DIRECTOR, WORSHIP DIRECTOR-C Attending Provider Active S tart: July 26, [...] Status: Active Member Role/Relationship Status Dates Dr. Brigdet Swenson MD Primary Care Provider Acti ve [...] Status: Inactive Member Role/Relationship Status Dates Dr. rBidget Swenson MD Primary Care Provider Acti ve [...] 2024 End: September 06, 2024 Richa Arrieta WORSHIP DIRECTOR, WORSHIP DIRECTOR-C Attending Provider Active Start: September 06, 2024 [...] 2024 End: October 01, 2024 Dr. Ayaz [place] , DO Emergency Provider Active Start: October 01, [...] Choi MD Other Provider Active Start: [place] 2024 Dr. Jean Carlos Fritz MD Other [...] Ayesha Choi MD Other Provider Active Start: Sammy maldonado 2024 Dr. Jean Carlos Fritz MD Other [...] ve Start: October 07, 2024 Dr. Diana Godman , DO Emergency Provider Active Start: October 07, 2024 Dr. Jaun José Suarez , DO Admit Provider Active [...] November 17, 2024 Dr. Tylor Hendrickson , DO Referring Provider Active Start: November 17, 2024 End: November 17, 2024 Dr. Tylor Hendrickson , DO Emergency Provider Active Start: November 17, 2024 End: November 17, 2024 Team Status: Inactive Member Role/Relationship Status Dates Dr. Bridget Swenson MD Primary Care Provider Acti ve Start: November 19, 2024 End: November 19, 2024 Dr. Bridget Swenson MD Referring Provider Active Start: November 19, 2024 End: November 19, 2024 Sho Andino WORSHIP DIRECTOR, WORSHIP DIRECTOR-C Attending Provider Active Start: November 19, 2024 [...] Start: August 31, 2024 Dr. Ayaz Hinton , Emergency Provider Active Start: August 31, 2024 [...] 2024 End: September 06, 2024 Richa Arrieta WORSHIP DIRECTOR, WORSHIP DIRECTOR-C Attending Provider Active Start: September 06, 2024 [...] October 01, 2024 Dr. Ayaz Hinton , DO Emergency Provider Active Start: October 01, [...] Ayesha Choi MD Other Provider Active Start: Nh 2024 Dr. Jean Carlos Fritz MD Other [...] Ayesha Choi MD Other Provider Active Start: [facility] 2024 Dr. Jean Carlos Fritz MD Other [...] November 17, 2024 Dr. Tylor Hendrickson , DO Attending Provider Active Start: November 17, 2024 End: November 17, 2024 Dr. Tylor Hendrickson , DO Referring Provider Active Start: November 17, 2024 End: November 17, 2024 Dr. Tylor Hendrickson , DO Emergency Provider Active Start: November 17, 2024 End: November 17, 2024 Team Status: Inactive Member Role/Relationship Status Dates Dr. Bridget Swenson MD Primary Care Provider Acti ve Start: November 19, 2024 End: November 19, 2024 Dr. Bridget Swenson MD Referring Provider Active Start: November 19, 2024 End: November 19, 2024 Sho Andino WORSHIP DIRECTOR, WORSHIP DIRECTOR-C Attending Provider Active Start: November 19, 2024 End: November 19, 2024 Team Status: Inactive Member Role/Relationship Status Dates Dr. Bridget Swenson MD Primary Care Provider Acti ve Start: November 19, 2024 End: November 19, 2024 Sho Andino WORSHIP DIRECTOR, WORSHIP DIRECTOR-C Attending Provider Active Start: November 19, 2024 End: November 19, 2024 Sho Andino NP, WORSHIP DIRECTOR-C Referring Provider Active Start: November 19, 2024 End: November 19, 2024 Team Status: Inactive Member Role/Relationship Status Dates Dr. Bridget Swenson MD Primary Care Provider Acti ve Start: December 17, 2024 End: December 17, 2024 Dr. Bridget Swenson MD Referring Provider Active Start: December 17, 2024 End: December 17, 2024 Sho Andino NP, WORSHIP DIRECTOR-C Attending Provider Active Start: December 17, 2024 End: December 17, 2024 INFORMATION SOURCE (unrecogn ized section and content) DATE CREATED AUTHOR 05/21/2024 [facility] DATE CREATED AUTHOR AUTHOR'S ORGANIZ ATION 07/08/2024 [facility] DATE CREATED AUTHOR AUTHOR'S ORGANIZ ATION 10/14/2024 [facility] DATE CREATED AUTHOR AUTHOR'S ORGANIZ ATION 11/06/2024 [facility] DATE CREATED AUTHOR AUTHOR'S ORGANIZ ATION 03/19/2025 [facility] Source Comments (unrecognize d section and content) In the event this informatio n is protected by the Federal Confidentiality of Alcohol and Drug Abuse Patient Records regulations: The Federal rules restrict any use of the information to criminally investigate or prosecute any alcohol or drug abuse patient.[facility] the event this information is protected by the Federal Confidentiality of Alcohol and Drug Abuse Patient Records regulations: The Federal rules restrict any use of the information to criminally investigate or prosecute any alcohol or drug abuse patient.[facility] the event this information is protected by the Federal Confidentiality of Alcohol and Drug Abuse Patient Records regulations: The Federal rules restrict any use of the information to criminally investigate or prosecute any alcohol or drug abuse patient.[facility] the event this information is protected by the Federal Confidentiality of Alcohol and Drug Abuse Patient Records regulations: The Federal rules restrict any use of the information to criminally investigate or prosecute any alcohol or drug abuse patient.[facility] the event this information is protected by the Federal Confidentiality of Alcohol and Drug Abuse Patient Records regulations: The Federal rules restrict any use of the information to criminally investigate or prosecute any alcohol or drug abuse patient.[facility] the event this information is protected by the Federal Confidentiality of Alcohol and Drug Abuse Patient Records regulations: The Federal rules restrict any use of the information to criminally investigate or prosecute any alcohol or drug abuse patient.[facility] the event this information is protected by the Federal Confidentiality of Alcohol and Drug Abuse Patient Records regulations: The Federal rules restrict any use of the information to criminally investigate or prosecute any alcohol or drug abuse patient.[facility] the event this information is protected by the Federal Confidentiality of Alcohol and Drug Abuse Patient Records regulations: The Federal rules restrict any use of the information to criminally investigate or prosecute any alcohol or drug abuse patient.[facility] Reason for Visit (unrecogniz ed section and content) Reason Onset Date Comments nsgy DIA-family 05/19/2024 Reason Onset Date Comments nsgy DIA 05/19/2024 Reason Comments Opened In Error Reason Comments Hospital Discharge Reason Comments Altered Mental Status Via [facility]FD from [facility]. Facility RN reports she woke up yelling/flailing. LKW [id number] when staff put her to bed. Mari URBAN met in [facility] Reason Comments Critical Care Transport Specialty Diagnoses / Procedures Referred By Nelson kwan Referred To Contact HOSP INPATIENT Diagnoses [facility] Procedures [address] [place] [address] IP/OBS CARE HIGH MDM 75 MINUTES [facility] [id number] [place] [address] Referral ID Status Reason Start Date Expiration Date Visits Re quested Visits Authorized [id number] 1 Scheduled Active and Recently Administ [...] BE BASED ON THE PRIMARY CLINICAL RECORDS. [employer] provides no warranty or guarantee of the accuracy or completeness of information in this document.
[2025-03-22 08:56] LABS: Anion Gap 13 (5-15); BUN 38 mg/dL (4-19); BUN/Creat Ratio 28.0 RATIO (10-20); Calcium,Total 10.6 mg/dL (7.6-11.0); Carbon Dioxide 32.0 mmol/L (21.0-32.0); Chloride 91 mmol/L (98-108); Glucose 108 mg/dL (70-99); Potassium 3.7 mmol/L (3.3-5.1); Pro- Brain NATRIURETIC PEPTIDE 607 pg/mL (<=1800)
== END ==
PROVIDERS: PCP Family Medicine; Visit Provider Family Medicine
DX: I50.9 Heart failure, unspecified (principal)
CPT/HCPCS: 36415; 80048; 83880

== ENCOUNTER 2025-04-11 21:47 | Emergency (ER) | payer MEDICARE, BC, SELFPAY ==
[2025-04-11 21:51] VITALS: BP 193/87; PULSE 75; RESP 20; TEMP 36.4; O2SAT 92; O2SAT 97
--- NOTE | 2025-04-11 22:20 | CT_ITS ---
PROCEDURE: BRAIN/HEAD WITHOUT CONTRAST 04/11/2025 REASON FOR EXAM: FALL, HIT HEAD TECHNIQUE: Procedure Code: CTBR Modality: CT Procedure: BRAIN/HEAD WITHOUT CONTRAST Coronal and Sagittal reconstruction series were provided. One or more dose reduction techniques were used (e.g., Automated exposure control, adjustment of the mA and/or kV according to patient size, use of iterative reconstruction technique. COMPARISON: CT dated 10/03/2024. FINDINGS: No acute intracranial hemorrhage. No midline shift. The ventricles are normal in size and configuration. No extra-axial fluid collection is identified. Moderate low attenuation in the cerebral white matter is nonspecific but likely represents chronic microvascular ischemic changes, similar to the previous study. No fracture. The calvarium is intact. Mucosal thickening within a single right ethmoid air cell. The remainder of the paranasal sinuses and the bilateral mastoid air cells are clear. Scalp hematoma over the posterior calvarium. CT/Brain/Head without Contrast IMPRESSION: No acute intracranial CT abnormality. Scalp hematoma, posterior calvarium. Reading Location: [id number]
--- NOTE | 2025-04-11 22:20 | CT_ITS ---
PROCEDURE: CT SPINE CERVICAL WITHOUT CONTRAST 04/11/2025 REASON FOR EXAM: FALL TECHNIQUE: Procedure Code: CTSPC Modality: CT Procedure: SPINE CERVICAL WITHOUT CONTRAS Coronal and Sagittal reconstruction series were provided. One or more dose reduction techniques were used (e.g., Automated exposure control, adjustment of the mA and/or kV according to patient size, use of iterative reconstruction technique. RADIATION DOSE SUMMARY: CTDlvol: 11.92 mGy DLP: 275 mGycm COMPARISON: 10/03/2024 FINDINGS: Acute nondisplaced vertically oriented fracture through the anteroinferior left aspect of the C7 vertebral body (see draper images). No other acute fracture or subluxation appreciated. Alignment is anatomic. Mild multilevel spondylotic changes. No significant prevertebral soft tissue swelling appreciated. Atherosclerotic vascular calcifications. Enlarged heterogeneous multinodular thyroid. Clear lung apices CT/Spine Cervical without Contras IMPRESSION: Acute nondisplaced fracture through the left anteroinferior aspect of C7 verteb ral body; stable. No other acute fracture or traumatic malalignment. Mild spondylotic changes. Reading Location: [id number]
--- OUTSIDE RECORDS SUMMARY | 2025-04-11 22:33 | XMS RPT_ITS | CCD ---
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 Garcia Attending Provider Dr. oDyle Swenson Primary Care Provider [phone] Dr. Doyle Swenson Referring Provider Adriana ROTARY SURFACE GRINDER, ROTARY SURFACE GRINDER-Jing Lombardi Attending Provider Dr. Doyle Swenson Primary Care Provider Francy ROTARY SURFACE GRINDER, ROTARY SURFACE GRINDER-Jing Arce Attending Provider Dr. Doyle Swenson Primary Care Provider Dr. Doyle Swenson Referring Provider Adriana ROTARY SURFACE GRINDER, ROTARY SURFACE GRINDER-C Nallely Lombardi Attending Provider [phone] Dr. [phone] Dr. Doyle Swenson Referring Provider Adriana ROTARY SURFACE GRINDER, ROTARY SURFACE GRINDER-C Nallely Lombardi Attending Provider [phone] [employer] ROTARY SURFACE GRINDER, ROTARY SURFACE GRINDER-C Tarik Arce Attending Provider Dr. Tylor Hendrickson [...] Dr. Doyle Swenson Primary Care Provider Tickchristi ROTARY SURFACE GRINDER, ROTARY SURFACE GRINDER-C Richa Attending Provider Dr. Doyle Ortega Primary [...] Provider Dr. Hood Maza Other Provider Tickchristi ROTARY SURFACE GRINDER, ROTARY SURFACE GRINDER-C Richa Attending Provider Dr. Doyle Ortega Primary Care Provider Tickton ROTARY SURFACE GRINDER, ROTARY SURFACE GRINDER-C Richa Attending Provider Dr. Doyle Ortega Primary [...] Dr. Bridget Swenson MD Attending Provider [phone] Dr. Bridget Swenson MD Referring Provider [phone] Dr. Tylor Hendrickson DO Attending Provider Dr. [...] Ginny URBAN, Dr. Wilkinson Other Provider Mingo ROTARY SURFACE GRINDER-C, Sofia Other Provider Unavailabl e Lizzette ROTARY SURFACE GRINDER-C, Monik Other Provider [phone] Min PA, Nelsy Other Provider Leela URBAN, Dr. Savage Primary Care Provider Leoncio URBAN, Dr. Snider Attending Provider Leela URBAN, Dr. Savage Attending Provider [phone] Leela URBAN, Dr. Savage Referring Provider [phone] [employer] ROTARY SURFACE GRINDER-C, Tarik Attending Provider Mary Jane SIMMONS, Dr. [...] Nate URBAN, Dr. Soto Other Provider [phone] Scooby Mobley DO Emergency Provider Dr. [...] Leela URBAN, Dr. Savage Referring Provider Meenakshi ROTARY SURFACE GRINDER-CRicha Attending Provider Sonali URBAN, Dr. Raymundo Attending Provider NICHOLE GUERRA Attending Unavailable BRIDGET SWENSON COLLEEN Primary Care Unavail able Elizabet SIMMONS, Dr. Snider Referring Provider Elizabet SIMMONS, Dr. Snider Emergency Provider Sina ROTARY SURFACE GRINDER-C, Sho Attending Provider Leela URBAN, Dr. Savage Primary Care Provider Elizabet SIMMONS, Dr. Snider Attending Provider Leela URBAN, Dr. Savage Referring Provider Sina ROTARY SURFACE GRINDER-C, Sho Referring Provider Santino Haas Attending Unavailable Juan José Suarez Admitting Unavailable Juan José Suarez Consulting Unavailable Leela, [place] Primary Care Unavailable Juan José Suarez Admitting Unavailable Juan José Suarez Consulting Unavailable Leela, [place] Primary [facility] Unavailable Charles Sullivan Attending Unavailable Juan José Suarez Consulting Unavailable Juan José Suarez Admitting Unavailable Santino Haas Attending Unavailable Fredrickcairo, [place] Primary Care Unavailable Santino Haas Consulting Unavailable Fredrickcairo, [place] Primary Care Unavailable Aleks Marshall Chi Attending Unavailable Rolando, Aleks Chi Admitting Unavailable Juan José Marshall Consulting Unavailable Marisol Prather Consulting Unavailable Gross, Jaja Consulting Unavailable Mingo, Sofia Consulting Unavailable Lizzette ROTARY SURFACE GRINDER, Monik Consulting Unavailable Min, Nelsy Consulting Unavailable Fredrickcairo, [place] Primary Care Unavailable Zackary Hedrick Referring Unavailabl e Zackary Hedrick Attending Unavailabl e Bridget Marquez Attending Unavaila ble [facility] Bridget Marquez Attending Unavaila ble Leela, [facility] Unavailable Bridget Marquez Attending Unavaila ble Rancairo, [place] Primary Care Unavailable Rancairo, Christopher Referring Unavailable Rancairo, [place] Primary Care Unavailable Ranney, Christopher Attending Unavailable Rolando, Aleks Chi Referring Unavailable Rolando, Aleks Chi Attending Unavailable Rancairo, [place] Primary Care Unavailable Vinayak Mendenhall Referring Unavailable Vinayak Mendenhall Attending Unavailable [place]anc[place], [place] Primary Care Unavailable Rancairo, Christopher Referring Unavailable Rancairo, [place] Primary Care Unavailable Rancairo, Christopher Attending Unavailable Sho Andino Attending Unavailable Sho Andino Referring Unavailable [place]ancairo, [place] Primary Care Unavailable SchwigerTylor Attending Unavailable Schwiger, Tylor Referring Unavailable [facility], [place] Primary Care Unavailable Ranney BRENDA, Ricer Attending Unavaila ble [place]anc[place], [place] Primary Care Unavailable Rancairo, [place] Primary Care Unavailable Ranney BRENDA, Bridget Attending Unavaila ble Schwiger, Tylor Attending Unavailable Rancairo, [place] Primary Care Unavailable Rolando, Aleks Chi Attending Unavailable Rolando, Aleks Chi Referring Unavailable [facility], [place] Primary Care Unavailable Rolando, Aleks Chi Admitting Unavailable Rolando, Aleks Chi Consulting Unavailable Joyce Rousseau Attending Unavaila ble [place], [place] Primary Care Unavailable SemenJoyce urbina Consulting Unavaila ble [place], [facility] Referring Unavailable [facility], [place] Primary Care Unavailable Tarik Sen NP Attending Unavailable [place], [facility] Referring Unavailable Sho Andino Attending Unavailable Rancairo, [place] Primary Care [facility] Referring Unavailable [place]ancairo, [place] Primary Care Unavailable Sho Andino Attending Unavailable Rolando, Aleks Chi Referring Unavailable Tylor Fang Attending Unavailable [place], [place] Primary Care Unavailable RosemarieeyVinayak Referring Unavailable LeoncioTylor cooper Attending Unavailable [place], [place] Primary Care Unavailable [facility], [place] Primary Care Unavailable Evin Mora Attending Unavailable Juan José Suarez Admitting Unavailable Juan José Suarez Consulting Unavailable Juan José Suarez Attending Unavailable [place], [place] Primary Care Unavailable Charles Sullivan Attending Unavailable Charles Sullivan Consulting Unavailable Juan José Suarez Attending Unavailable Juan José Suarez Admitting Unavailable Juan José Suarez Consulting Unavailable [place], [facility] Unavailable Santino Haas Attending Unavailable Santino Haas Consulting Unavailable Courtenay, Ayesha Consulting Unavailable Adeli, Amir Consulting Unavailable Hinduja, Mary Consulting Unavailable Delonte, Clementine Consulting Unavailable Zha, Emmie Consulting Unavailable Adarsh, Mega Consulting Unavailable Otilio, Fay Consulting Unavailable Bittar, Robert Consulting Unavailable Abernathy, Camilo Consulting Unavailable Ye, John Consulting Unavailable Beigel, Rola Consulting Unavailable Gusler, Gertrudis Consulting Unavailable Dioni, Giselle Consulting Unavailable Ridha, Mohamed Consulting Unavailable Wadeh, d Leander Consulting UnavailDuglas Ware Consulting Unavailable Jordan, Rami Consulting Unavailable Loiad, Boom Consulting Unavailable Jose Raul, Bonnie Consulting Unavailable Hannawi, Yousef Consulting Unavailable [facility] Primary Care Unavailable Layla Craig Attending Unavailable Layla Craig Admitting Unavailable Courtenay, Ayesha Consulting Unavailable Adeli, Amir Consulting Unavailable Hinduja, Mary Consulting Unavailable Delonte, Clementine Consulting Unavailable Zha, Emmie Consulting Unavailable Adarsh, Mega Consulting Unavailable Otilio, Fay Consulting Unavailable Bittar, Robert Consulting Unavailable Camilo Abernathy Consulting Unavailable Ephraim, John Consulting Unavailable Begeovanna, Rola Consulting Unavailable Guscarol, Gertrudis Consulting Unavailable Dioni, Giselle Consulting Unavailable Ridha, Mohamed Consulting Unavailable Zasamanthah, d Leander Consulting UnavailDuglas Ware Consulting Unavailable Jordan, Rami Consulting Unavailable Loida, Boom Consulting Unavailable Jose Raul, Bonnie Consulting Unavailable Hannawi, Yousef Consulting Unavailable Layla Craig Consulting Unavailable Charles Sullivan Attending Unavailable Charles Sullivan Consulting Unavailable [facility] Primary Care Unavailable Richa Arrieta NP Attending Unavailable [facility] Primary Care Unavailable Zackary Lyon Attending Unavailable [facility] Primary [facility] Unavailable [facility] Primary Care Unavailable Charles Sullivan Attending Unavailable Layla Craig Admitting Unavailable Steph, Ayesha Consulting Unavailable Adeli, Amir Consulting Unavailable Hinduja, Mary Consulting Unavailable Delonte, Clementine Consulting Unavailable Zha, Emmie Consulting Unavailable Adarsh, Mega Consulting Unavailable Otilio, Fay Consulting Unavailable Bittar, Robert Consulting Unavailable Josemanuel Camilo Consulting Unavailable Ye, John Consulting Unavailable Begeovanna, Rola Consulting Unavailable Gertrudis Mckee Consulting Unavailable Giselle Wheatley Consulting Unavailable Abram Coronel Consulting Unavailable Lizeth Jules Consulting UnavailDuglas Ware Consulting Unavailable Jordan, Christiani Consulting Unavailable LoidaRoly greenl Consulting Unavailable Bonnie Blunt Consulting Unavailable Hancheco, Tayoseaaliyah Consulting Unavailable Craig, Layla Consulting Unavailable Rolando, Aleks Chi Admitting Unavailable Rolando, Aleks Chi Consulting Unavailable Joyce Rousseau Attending Unavaila [facility] Primary Care Unavailable Rolando, Aleks Chi Attending Unavailable Rolando, Aleks Chi Referring Unavailable [facility] Primary Care Unavailable [facility] Referring Unavailable [facility] Primary Care Unavailable Bridget Swenson Attending Unavailable Rolando, Aleks Chi Attending Unavailable Rolando, Aleks Chi Admitting Unavailable [facility] Primary Care Unavailable [facility] Referring Unavailable [facility] Primary Care Unavailable FredrickcairoBridget Attending Unavailable [facility] Primary Care Unavailable Horace Horta Attending Unavailable Ayaz Hinton Attending Unavailable [facility] Unavailable Allergies Allergy Classification Reported Allergen(s) Allergy Type Date of Onset Reaction(s) Facility (20 sources) eggplant extract; Translations: [EGGPLANT] Drug Allergy 7 Hives [facility] Work Phone: [phone] (3 sources) gabapentin Drug Allergy 4 unknown [facility] Work Phone: [phone] (3 sources) meloxicam; Translations: [MOBIC] Drug Allergy 4 unknown [facility] Work Phone: [phone] (20 sources) mold extract; Translations: [MOLD] [facility] Work Phone: [phone] (3 sources) penicillin; Translations: [PENICILLIN] Drug Allergy 1 [facility] Work Phone: [phone] (3 sources) risedronate Drug Allergy 4 unknown [facility] Work Phone: [phone] (20 sources) Silk; Translations: [SILK] allergy to substance 4 unknown, itching [facility] Work Phone: [phone] (3 sources) wheat; Translations: [WHEAT] food allergy 1 hives/swelling [facility] Work Phone: [phone] (13 sources) BEETS; Translations: [BEETS] food allergy 2 Rash [facility] Work Phone: [phone] (8 sources) CANTALOPE; Translations: [CANTALOPE] food allergy 4 hives [facility] Work Phone: [phone] (3 sources) MULTIPLE FOOD ALLERGIES; Translations: [MULTIPLE FOOD ALLERGIES] food allergy 1 hives/swelling [facility] Work Phone: [phone] (12 sources) PROCESSED FOODS; Translations: [PROCESSED FOODS] food allergy 1 hives/swelling, Hives [facility] Work Phone: [phone] (20 sources) Beets preparation Drug Allergy 2 [facility] (20 sources) cantaloupe allergenic extract; Translations: [CANTALOUPE] Drug Allergy 7 [facility] (20 sources) gabapentin; Translations: [GABAPENTIN] Drug Allergy 1 Other: See Comments [facility] (20 sources) levoFLOXacin Drug Allergy 2 Unknown [facility] (20 sources) meloxicam; Translations: [MELOXICAM] Drug Allergy 1 Other: See Comments [facility] (20 sources) oxyCODONE Drug Allergy 2 Nausea [facility] (20 sources) Penicillins; Translations: [PENICILLINS] Allergy to substance 4 Unknown [facility] (20 sources) Risedronate; Translations: [RISEDRONATE SODIUM] Drug Allergy 8 GI Upset [facility] (20 sources) tomato allergenic extract Drug Allergy 2 Food Allergy [facility] (20 sources) Wheat preparation Drug Allergy 2 [facility] (20 sources) CONCENTRATES Allergy to substance 2 [facility] (11 sources) fermented foods Allergy to substance 2 Itching [facility] (20 sources) ceFAZolin Drug Allergy 2 Swelling [facility] (20 sources) Food Allergies: Uncoded; Translations: [Food Allergies: Uncoded] Allergy to substance 3 Itching [facility] (10 sources) Alendronate; Translations: [ALENDRONATE SODIUM] Drug Allergy 8 GI Upset [facility] Repository (10 sources) pork allergenic extract; Translations: [PORK] Drug Allergy 1 Intolerance [facility] Repository (10 sources) Wheat gluten extract; Translations: [WHEAT GLUTEN] Drug Allergy 7 [facility] Repository (10 sources) SUTURES; Translations: [SUTURES] Propensity to adverse reactions (disorder) 3 Itching [facility] Repository (10 sources) ADHES. [id number]-GBVR-LPWGNZ KONIUM; Translations: [ADHES. HFZZ-KDXA-OOMPXW KONIUM] Propensity to adverse reactions to drug (disorder) 8 [facility] Repository (10 sources) YEAST, DRIED; Translations: [YEAST, DRIED] Propensity to adverse reactions to drug (disorder) 2 [facility] Repository (1 source) Buttermilk; Translations: [BUTTERMILK] Propensity to adverse reactions to food (disorder) 5 [facility] Repository (1 source) Cheese; Translations: [CHEESE] Propensity to adverse reactions to drug (disorder) 5 [facility] Repository (1 source) latif allergenic extract; Translations: [LATIF] Drug Allergy 5 [facility] Repository (13 sources) Shellfish; Translations: [SHELLFISH DERIVED] Propensity to adverse reactions to drug (disorder) 5 [facility] Repository (1 source) CRANBERRY FRUIT CONCENTRATE; Translations: [CRANBERRY FRUIT CONCENTRATE] Propensity to adverse reactions to drug (disorder) 5 [facility] Repository (1 source) SOYBEAN, FERMENTED; Translations: [SOYBEAN, FERMENTED] Propensity to adverse reactions to drug (disorder) 5 [facility] Repository (1 source) TOMATOES; Translations: [TOMATOES] Propensity to adverse reactions to food (disorder) 5 [facility] Repository (11 sources) DULoxetine Drug Allergy 4 [facility] (1 source) Beets preparation Drug Allergy 5 [facility] (1 source) cantaloupe allergenic extract Drug Allergy 5 [facility] Rep[facility] (1 source) ceFAZolin Drug Allergy 5 [facility] Rep[facility] (1 source) DULoxetine Drug Allergy 5 [facility] Rep[facility] (1 source) gabapentin Drug Allergy 5 [facility] Rep[facility] (1 source) levoFLOXacin Drug Allergy 5 [facility] (1 source) meloxicam Drug Allergy 5 [facility] Rep[facility] (1 source) oxyCODONE Drug Allergy 5 [facility] Rep[facility] (1 source) Risedronate Drug Allergy 5 [facility] Rep[facility] (1 source) tomato allergenic extract Drug Allergy 5 [facility] (1 source) Wheat preparation Drug Allergy 5 [facility] Repository Medications Current Medications Medication Drug [...] TABS One tablet by mouth daily ASPIRIN [id number] Evin Mora MD Start: 07-29-2013 take 1 tablet by onofre th once daily ASPIRIN 81 MG TABS One tablet by mouth daily ASPIRIN [id number] Evin Mora MD Start: 07-29-2013 End: 02-12-2022 [...] 1000 UNIT CAPS 1 tab daily CHOLECALCIFEROL [id number] Maia ABDALLA Start: 01-17-2011 End: 07-29-2013 VITAMIN D 1000 UNIT CAPS 1 t ab daily CHOLECALCIFEROL [id number] Tana Gomez RN take 2 capsules by [facility] once daily cholecalciferol (Vitamin D-3) 25 mcg [...] left eye 4 times daily CIPROFLOXACIN HCL [id number] Cassandra Ramos RN Start: 07-29-2013 CILOXAN 0.3 % SOLN 1 dropp left eye 4 times daily CIPROFLOXACIN HCL [id number] Tana Gomez RN CPAP (3 sources) Start: [...] End: 02-12-2022 take 1 capsule by mo [facility] once daily docusate sodium (Colace) [...] 21, 2018 11:16am [facility] furosemide (LASIX) 40 [...] ACETAMINOPHEN 325 MG TABS as needed ACETAMINOPHEN [id number] Tana Gomez RN Start: 11-06-2007 End: 11-05-2023 [...] One tablet by mouth daily AMLODIPINE BESYLATE [id number] Evin Mora MD atenolol 50 mg oral [...] TABS One tablet by mouth daily ATENOLOL [id number] Evin Mora MD Start: 02-26-2013 End: 03-22-2018 [...] by mouth 2-3 times per day CALCIUM [id number] Maia ABDALLA calcium carbonate 1500 mg / [...] tablet by mouth daily CALCIUM CARBONATE-VITAMIN D [id number] Tana Gomez RN chlorthalidone 50 mg oral [...] One tablet by mouth daily CYCLOBENZAPRINE HCL [id number] Evin Mora MD 1 ml denosumab 60 mg/ml prefilled syringe (20 sources) RANK Ligand Inhibitor Start: 06-15-2024 End: 06-15-2024 inject 1 mL by subcutaneous injection once denosumab (PROLIA) 60 mg/mL Inject 1 mL subcutaneously one time only for 1 dose. 1 mL 06/15/2024 06/15/2024 Start: 10-08-2019 End: 07-25-2021 docusate sodium 50 mg / paige osides, long-term 8.6 mg oral tablet (20 sources) Start: [...] CAPS 1 tab by mouth daily GABAPENTIN [id number] Tana Gomez RN hydroCHLOROthiazide 25 mg or al tablet (20 sources) Thiazide Diuretic Start: 07-21-2018 End: 01-19-2019 Start: 08-11-2014 take 1 tablet by onofre th once daily HYDROCHLOROTHIAZIDE 12.5 MG TABS One tablet by mouth daily HYDROCHLOROTHIAZIDE [id number] Yenny Buckley PA-C Start: 08-11-2014 End: 03-14-2016 HYDROCHLOROTHIAZIDE 12.5 MG TABS as needed three times per week HYDROCHLOROTHIAZIDE [id number] Evin Mora MD lidocaine 0.05 mg/mg medicated [...] tab by mouth daily in am LISINOPRIL [id number] Tana Gomez RN 1 ml LORazepam 2 [...] One tablet by mouth daily LOSARTAN POTASSIUM [id number] Evin Mora MD Start: 07-29-2013 take 1 tablet by onofre th once daily COZAAR 25 MG TABS One tablet by mouth daily LOSARTAN POTASSIUM [id number] Evin Mora MD magnesium chloride 598 mg delayed release oral tablet (20 sources) Start: 05-28-2024 End: 08-30-2024 Magnesium Hydroxide (20 sources) Start: 02-11-2022 End: 02-12-2022 take 1 mL by mouth once daily Magnesium Hydroxide Discontinued 30 ML PO DAILY February 10, 2022 11:00pm February 12, 2022 [...] TABS One tablet by mouth daily SPIRONOLACTONE [id number] Evin Mora MD tamsulosin hydrochloride 0.4 mg oral capsule (20 sources) alpha-Adrenergic Sera Start: 05-28-2024 End: 08-30-2024 28 actuat teriparatide 0.02 mg/actuat pen injector (6 sources) Parathyroid Hormone Analog Start: 01-17-2011 End: 07-29-2013 FORTEO 600 MCG/2.4ML SOLN nosespray daily TERIPARATIDE (RECOMBINANT) [id number] Tana Gomez RN traMADol hydrochloride 50 mg oral tablet (20 sources) Opioid Agonist Start: 06-08-2024 End: 09-18-2024 Start: 02-09-2022 End: 02-11-2022 Start: 01-17-2011 End: 07-29-2013 ULTRAM 50 MG TABS 1 tab by jatin murillo as needed for pain TRAMADOL HCL [id number] Tana Gomez, ALBERT take 1 tablet by onofre th every six hours as needed traMADol (ULTRAM) 50 mg tablet Take 50 mg by mouth every 6 hours as needed for pain. Suspended vitamin d 1000 unt oral tablet (3 sources) Start: 03-10-2015 take 1 tablet by mouth once daily VITAMIN D 1000 UNIT TABS One tablet by mouth daily CHOLECALCIFEROL [id number] Evin Mora MD warfarin sodium 3 mg [...] One tablet by mouth daily WARFARIN SODIUM [id number] Jaiden Winston MD Start: 11-06-2015 End: 05-18-2017 Start: 11-06-2015 End: 05-18-2017 Warfarin Discontinued 5 MG P O SRIVASTAVA November 06, 2015 12:00am May 18, 2017 2:33pm Start: 11-06-2015 End: 05-18-2017 Start: 08-26-2015 End: 05-18-2017 Start: 08-26-2015 End: 05-18-2017 Warfarin Discontinued 4 MG P O MOTUWETHFRSA August 26, 2015 12:00am May 18, 2017 2:33pm Start: 08-08-2015 COUMADIN 6 MG TABS 6 mg tablet on Sat and Sun, take 4mg tablet Friday through Friday WARFARIN SODIUM [id number] Evin Mora MD Start: 08-08-2015 COUMADIN 6 MG TABS Take as directed: Current dose: Take one tablet by mouth for one day and 4mg other days WARFARIN SODIUM [id number] Evin Mora MD Start: 11-17-2013 take 1 tablet by onofre th once daily COUMADIN 4 MG TABS One tablet by mouth daily except take 6 mg every Friday (1.5 tablets) WARFARIN SODIUM [id number] Evin Mora MD take 1 tablet by [...] sources) Long-term current use of anticoagulant; Translations: [MCFP (current) use of anticoagulants] Onset: 05-11-2024 07-24-2021 [...] transverse process of lumbar vertebra, initial encounter ([facility])] Onset: 06-27-2024 Episodic Other fractures [...] 11-23-2024 11-17-2024 Episodic Other aftercare (1 source) director long term care (current) use of anticoagulants; Translations: [MCFP (current) use of anticoagulants] Onset: 06-01-2024 Episodic [...] 630-4 - CUUR Culture exhibits no growth. [facility] Comment on above: Performed By: #### L 101.9900, L100.0100, L500.4050, L501.5200, L509.1000, M100.2200, L501.9520, L400.0001 ####[facility] [address] [place], [place], [id number] CBC W/Diff, Automatedon 11-0 4-2024 Absolute Lymph 1.52 X10 3/uL Normal 0.83-4.51 [facility] Comment on above: Order Comment: Order Date: 03/15/25Order Info: [id number] - CBCDOrder Info: [id number] - SED Performed By: #### L 101.9900, L100.0100, L500.4050, L501.5200, L509.1000, M100.2200, L501.9520, L400.0001 ####[facility] [address] [place], [place], [phone] Absolute Neut 4.9 X10 3/uL Normal 2.0-7.7 [facility] Comment on above: Order Comment: Order Date: 03/15/25Order Info: 183- - CBCDOrder Info: [id number] - SED Performed By: #### L 101.9900, L100.0100, L500.4050, L501.5200, L509.1000, M100.2200, L501.9520, L400.0001 ####[facility] [address] [place], [place], [phone] Basophils/100 WBC (Bld) 0.8 % Normal 0-1 [facility] Comment on above: Order Comment: Order Date: 03/15/25Order Info: [id number]- - CBCDOrder Info: [id number] - SED Performed By: #### L 101.9900, L100.0100, L500.4050, L501.5200, L509.1000, M100.2200, L501.9520, L400.0001 ####[facility] [address] [place], [address] Eosinophils/100 WBC (Bld) 2.8 % Normal 0-5 [facility] Comment on above: Order Comment: Order Date: 03/15/25Order Info: 018- - CBCDOrder Info: 12333-1 - SED Performed By: #### L 101.9900, L100.0100, L500.4050, L501.5200, L509.1000, M100.2200, L501.9520, L400.0001 ####[facility] [address] [place], [address] Erythrocyte distribution width (RBC) [Ratio] 13.8 % Normal 11.6-14.6 [facility] Comment on above: Order Comment: Order Date: 03/15/25Order Info: 01808-10 - CBCDOrder Info: [id number] - SED Performed By: #### L 101.9900, L100.0100, L500.4050, L501.5200, L509.1000, M100.2200, L501.9520, L400.0001 ####[facility] [address] [place], [address] Hematocrit (Bld) [Volume fraction] 37.6 % Normal 37-47 [facility] Comment on above: Order Comment: Order Date: 03/15/25Order Info: 01808-10 - CBCDOrder Info: 17505-0 - SED Performed By: #### L 101.9900, L100.0100, L500.4050, L501.5200, L509.1000, M100.2200, L501.9520, L400.0001 ####[facility] [address] [place], [address] Hemoglobin (Bld) [Mass/Vol] 11.8 g/dL Low 12.0-15.0 [facility] Comment on above: Order Comment: Order Date: 03/15/25Order Info: 01808-10 - CBCDOrder Info: 04170-6 - SED Performed By: #### L 101.9900, L100.0100, L500.4050, L501.5200, L509.1000, M100.2200, L501.9520, L400.0001 ####[facility] [address] [place], [address] IG% 0.300 Normal 0.0-0.9 [facility] Comment on above: Order Comment: Order Date: 03/15/25Order Info: 0184-1 - CBCDOrder Info: 08684-4 - SED Result Comment: IG% - Immature Granulocytes (promyelocytes, myelocytes andmetamyelocytes) > 1% indicates that a LEFT SHIFT is Present. Performed By: #### L 101.9900, L100.0100, L500.4050, L501.5200, L509.1000, M100.2200, L501.9520, L400.0001 ####[facility] [address] [place], [address] Lymphocytes/100 WBC (Bld) 20.1 % Normal 19-41 [facility] Comment on above: Order Comment: Order Date: 03/15/25Order Info: 0184- - CBCDOrder Info: 88870-5 - SED Performed By: #### L 101.9900, L100.0100, L500.4050, L501.5200, L509.1000, M100.2200, L501.9520, L400.0001 ####[facility] [address] [place], [address] MCH (RBC) [Entitic mass] 27.6 pg Normal 27.0-32.0 [facility] Comment on above: Order Comment: Order Date: 03/15/25Order Info: 0184-1 - CBCDOrder Info: 95798-8 - SED Performed By: #### L 101.9900, L100.0100, L500.4050, L501.5200, L509.1000, M100.2200, L501.9520, L400.0001 ####[facility] [address] [place], [address] MCHC (RBC) [Mass/Vol] 31.4 g/dL Low 32-36 [facility] Comment on above: Order Comment: Order Date: 03/15/25Order Info: 018-1 - CBCDOrder Info: 72097-7 - SED Performed By: #### L 101.9900, L100.0100, L500.4050, L501.5200, L509.1000, M100.2200, L501.9520, L400.0001 ####[facility] [address] [place], [address] MCV (RBC) [Entitic vol] 87.9 fL Normal 81-99 [facility] Comment on above: Order Comment: Order Date: 03/15/25Order Info: 018- - CBCDOrder Info: 45021-9 - SED Performed By: #### L 101.9900, L100.0100, L500.4050, L501.5200, L509.1000, M100.2200, L501.9520, L400.0001 ####[facility] [address] [place], [address] Monocytes/100 WBC (Bld) 11.6 % High 0-10 [facility] Comment on above: Order Comment: Order Date: 03/15/25Order Info: 0184- - CBCDOrder Info: 58024-7 - SED Performed By: #### L 101.9900, L100.0100, L500.4050, L501.5200, L509.1000, M100.2200, L501.9520, L400.0001 ####[facility] [address] [place], [address] Neutrophils/100 WBC (Bld) 64.4 % Normal 47-70 [facility] Comment on above: Order Comment: Order Date: 03/15/25Order Info: 0184-1 - CBCDOrder Info: 62054-7 - SED Performed By: #### L 101.9900, L100.0100, L500.4050, L501.5200, L509.1000, M100.2200, L501.9520, L400.0001 ####[facility] [address] [place], [address] Nucleated RBC (Bld) [#/Vol] 0 10*3/uL Normal 0-5 [facility] Comment on above: Order Comment: Order Date: 03/15/25Order Info: 0184-1 - CBCDOrder Info: 63405-5 - SED Performed By: #### L 101.9900, L100.0100, L500.4050, L501.5200, L509.1000, M100.2200, L501.9520, L400.0001 ####[facility] [address] [place], [address] Platelet mean volume (Bld) [Entitic vol] 10.1 fL Normal 6.2-12.0 [facility] Comment on above: Order Comment: Order Date: 03/15/25Order Info: 018- - CBCDOrder Info: [id number] - SED Performed By: #### L 101.9900, L100.0100, L500.4050, L501.5200, L509.1000, M100.2200, L501.9520, L400.0001 ####[facility] [address] [place], [address] Platelets (Bld) [#/Vol] 331 10*3/uL Normal 150-450 [facility] Comment on above: Order Comment: Order Date: 03/15/25Order Info: 0184-1 - CBCDOrder Info: 10519-2 - SED Performed By: #### L 101.9900, L100.0100, L500.4050, L501.5200, L509.1000, M100.2200, L501.9520, L400.0001 ####[facility] [address] [place], [address] RBC (Bld) [#/Vol] 4.28 10*6/uL Normal 4.2-5.4 [facility] Comment on above: Order Comment: Order Date: 03/15/25Order Info: 018- - CBCDOrder Info: 07183-2 - SED Performed By: #### L 101.9900, L100.0100, L500.4050, L501.5200, L509.1000, M100.2200, L501.9520, L400.0001 ####[facility] [address] [place], [place], [phone] RDW SD 44.4 fl High 35.1-43.9 [facility] Comment on above: Order Comment: Order Date: 03/15/25Order Info: 018- - CBCDOrder Info: 19520-7 - SED Performed By: #### L 101.9900, L100.0100, L500.4050, L501.5200, L509.1000, M100.2200, L501.9520, L400.0001 ####[facility] [address] [place], [place], [phone] WBC (Bld) [#/Vol] 7.6 10*3/uL Normal 4.4-11.0 [facility] Comment on above: Order Comment: Order Date: 03/15/25Order Info: 01808-10 - CBCDOrder Info: [id number] - SED Performed By: #### L 101.9900, L100.0100, L500.4050, L501.5200, L509.1000, M100.2200, L501.9520, L400.0001 ####[facility] [address] [place], [address] Chest PA and Lateralon 03-15 Chest PA and Lateral Normal [facility] Comprehensive Metabolic Prof ilon 03-15-2025 Albumin [Mass/Vol] 4.0 g/dL Normal 3.4-4.8 [facility] Comment on above: Order Comment: Order Date: 02/25/25Order Info: 666-05 - BMPOrder Date: 03/15/25Order Info: 785- - CMPOrder Info: 03658-9 - MGOrder Info: 3015-3 - TSH Performed By: #### L 101.9900, L100.0100, L500.4050, L501.5200, L509.1000, M100.2200, L501.9520, L400.0001 ####[facility] [address] [place], [address] Albumin/Globulin [Mass ratio] 1.4 {ratio} Normal 0.9-2.4 [facility] Comment on above: Order Comment: Order Date: 02/25/25Order Info: 666-05 - BMPOrder Date: 03/15/25Order Info: 785-05 - CMPOrder Info: 06666-2 - MGOrder Info: 3015-3 - TSH Performed By: #### L 101.9900, L100.0100, L500.4050, L501.5200, L509.1000, M100.2200, L501.9520, L400.0001 ####[facility] [address] [place], [address] ALK PHOS 69 U/L Normal 35-104 [facility] Comment on above: Order Comment: Order Date: 02/25/25Order Info: 666-05 - BMPOrder Date: 03/15/25Order Info: 785-05 - CMPOrder Info: [id number] - MGOrder Info: 3015-3 - TSH Performed By: #### L 101.9900, L100.0100, L500.4050, L501.5200, L509.1000, M100.2200, L501.9520, L400.0001 ####[facility] [address] [place], [address] ALT [Catalytic activity/Vol] 8 U/L Normal <=34 [facility] Comment on above: Order Comment: Order Date: 02/25/25Order Info: 666- - BMPOrder Date: 03/15/25Order Info: 785- - CMPOrder Info: 06093-6 - MGOrder Info: 6-3 - TSH Performed By: #### L 101.9900, L100.0100, L500.4050, L501.5200, L509.1000, M100.2200, L501.9520, L400.0001 ####[facility] [address] [place], [address] AST [Catalytic activity/Vol] 26 U/L Normal <=31 [facility] Comment on above: Order Comment: Order Date: 02/25/25Order Info: 666-05 - BMPOrder Date: 03/15/25Order Info: 785-05 - CMPOrder Info: [id number] - MGOrder Info: 6-3 - TSH Performed By: #### L 101.9900, L100.0100, L500.4050, L501.5200, L509.1000, M100.2200, L501.9520, L400.0001 ####[facility] [address] [place], [place], [address] Bilirubin [Mass/Vol] 0.30 mg/dL Normal 0.00-1.30 [facility] Comment on above: Order Comment: Order Date: 02/25/25Order Info: 666- - BMPOrder Date: 03/15/25Order Info: 07- - CMPOrder Info: - MGOrder Info: 3015-3 - TSH Performed By: #### L 101.9900, L100.0100, L500.4050, L501.5200, L509.1000, M100.2200, L501.9520, L400.0001 ####[facility] [address] [place], [address] BUN/CRE 26.2 RATIO High 10-20 [facility] Comment on above: Order Comment: Order Date: 02/25/25Order Info: 06- - BMPOrder Date: 03/15/25Order Info: 0786- - CMPOrder Info: 90825-1 - MGOrder Info: 3015-3 - TSH Performed By: #### L 101.9900, L100.0100, L500.4050, L501.5200, L509.1000, M100.2200, L501.9520, L400.0001 ####[facility] [address] [place], [address] Calcium [Mass/Vol] 10.3 mg/dL Normal 7.6-11.0 [facility] Comment on above: Order Comment: Order Date: 02/25/25Order Info: 06 - BMPOrder Date: 03/15/25Order Info: 785-05 - CMPOrder Info: - MGOrder Info: 6-3 - TSH Performed By: #### L 101.9900, L100.0100, L500.4050, L501.5200, L509.1000, M100.2200, L501.9520, L400.0001 ####[facility] [address] [place], [place], [phone] Chloride [Moles/Vol] 97 mmol/L Low 98-108 [facility] Comment on above: Order Comment: Order Date: 02/25/25Order Info: 0667- - BMPOrder Date: 03/15/25Order Info: 0786- - CMPOrder Info: - MGOrder Info: 3015-3 - TSH Performed By: #### L 101.9900, L100.0100, L500.4050, L501.5200, L509.1000, M100.2200, L501.9520, L400.0001 ####[facility] [address] [place], [address] CO2 [Moles/Vol] 31.7 mmol/L Normal 21.0-32.0 [facility] Comment on above: Order Comment: Order Date: 02/25/25Order Info: 06- - BMPOrder Date: 03/15/25Order Info: 0786-1 - CMPOrder Info: 86119-0 - MGOrder Info: 6-3 - TSH Performed By: #### L 101.9900, L100.0100, L500.4050, L501.5200, L509.1000, M100.2200, L501.9520, L400.0001 ####[facility] [address] [place], [place], [phone] Creatinine [Mass/Vol] 0.94 mg/dL Normal 0.70-1.20 [facility] Comment on above: Order Comment: Order Date: 02/25/25Order Info: 0667- - BMPOrder Date: 03/15/25Order Info: 0786-1 - CMPOrder Info: 40166-7 - MGOrder Info: 3015-3 - TSH Performed By: #### L 101.9900, L100.0100, L500.4050, L501.5200, L509.1000, M100.2200, L501.9520, L400.0001 ####[facility] [address] [place], [place], [address] GAP 12 Normal 5-15 [facility] Comment on above: Order Comment: Order Date: 02/25/25Order Info: 0667-1 - BMPOrder Date: 03/15/25Order Info: 0786-1 - CMPOrder Info: 92048-8 - MGOrder Info: 3015-3 - TSH Performed By: #### L 101.9900, L100.0100, L500.4050, L501.5200, L509.1000, M100.2200, L501.9520, L400.0001 ####[facility] [address] [place], [place], [phone] GFR/1.73 sq M.predicted among non-blacks MDRD (S/P/Bld) [Vol rate/Area] 58 mL/min/{1.73_m2} Low >60 [facility] Comment on above: Order Comment: Order Date: 02/25/25Order Info: 0667-1 - BMPOrder Date: 03/15/25Order Info: 0786 - CMPOrder Info: - MGOrder Info: 3015-3 - TSH Result Comment: mL/m in/1.73m2 CKD-EPI Creatinine Equation (2020) Performed By: #### L 101.9900, L100.0100, L500.4050, L501.5200, L509.1000, M100.2200, L501.9520, L400.0001 ####[facility] [address] [place], [address] Globulin (S) [Mass/Vol] 2.8 g/dL Normal 2.2-4.2 [facility] Comment on above: Order Comment: Order Date: 02/25/25Order Info: 0667- - BMPOrder Date: 03/15/25Order Info: 785- - CMPOrder Info: - MGOrder Info: 3015-3 - TSH Performed By: #### L 101.9900, L100.0100, L500.4050, L501.5200, L509.1000, M100.2200, L501.9520, L400.0001 ####[facility] [address] [place], [address] Glucose [Mass/Vol] 102 mg/dL High 70-99 [facility] Comment on above: Order Comment: Order Date: 02/25/25Order Info: 0667- - BMPOrder Date: 03/15/25Order Info: 0786 - CMPOrder Info: - MGOrder Info: 3015-3 - TSH Performed By: #### L 101.9900, L100.0100, L500.4050, L501.5200, L509.1000, M100.2200, L501.9520, L400.0001 ####[facility] [address] [place], [address] Potassium [Moles/Vol] 3.5 mmol/L Normal 3.3-5.1 [facility] Comment on above: Order Comment: Order Date: 02/25/25Order Info: 06- - BMPOrder Date: 03/15/25Order Info: 07- - CMPOrder Info: [id number] - MGOrder Info: 3015-3 - TSH Performed By: #### L 101.9900, L100.0100, L500.4050, L501.5200, L509.1000, M100.2200, L501.9520, L400.0001 ####[facility] [address] [place], [address] Sodium [Moles/Vol] 140 mmol/L Normal 133-145 [facility] Comment on above: Order Comment: Order Date: 02/25/25Order Info: 666-05 - BMPOrder Date: 03/15/25Order Info: 785-05 - CMPOrder Info: 32006-2 - MGOrder Info: 3015-3 - TSH Performed By: #### L 101.9900, L100.0100, L500.4050, L501.5200, L509.1000, M100.2200, L501.9520, L400.0001 ####[facility] [address] [place], [address] T PROT 6.7 g/dL Normal 5.9-8.4 [facility] Comment on above: Order Comment: Order Date: 02/25/25Order Info: 06- - BMPOrder Date: 03/15/25Order Info: 0786 - CMPOrder Info: [id number] - MGOrder Info: 3015-3 - TSH Performed By: #### L 101.9900, L100.0100, L500.4050, L501.5200, L509.1000, M100.2200, L501.9520, L400.0001 ####[facility] [address] [place], [address] Urea nitrogen [Mass/Vol] 25 mg/dL High 4-19 [facility] Comment on above: Order Comment: Order Date: 02/25/25Order Info: 0667- - BMPOrder Date: 03/15/25Order Info: 0786-1 - CMPOrder Info: - MGOrder Info: 3016-3 - TSH Performed By: #### L 101.9900, L100.0100, L500.4050, L501.5200, L509.1000, M100.2200, L501.9520, L400.0001 ####[facility] [address] [place], [address] Erythrocyte Sed Rateon 03-15 SED RATE 18 mm/hr Normal 0-30 [facility] Comment on above: Order Comment: Order Date: 03/15/25Order Info: 0184-1 - CBCDOrder Info: 83877-3 - SED Performed By: #### L 101.9900, L100.0100, L500.4050, L501.5200, L509.1000, M100.2200, L501.9520, L400.0001 ####[facility] [address] [place], [address] Magnesiumon 03-15-2025 Magnesium [Mass/Vol] 2.2 mg/dL Normal 1.5-2.2 [facility] Comment on above: Order Comment: Order Date: 02/25/25Order Info: 0667-1 - BMPOrder Date: 03/15/25Order Info: 0786-1 - CMPOrder Info: - MGOrder Info: 3016-3 - TSH Performed By: #### L 101.9900, L100.0100, L500.4050, L501.5200, L509.1000, M100.2200, L501.9520, L400.0001 ####[facility] [address] [place], [address] PTHINon 03-15-2025 PTH 28 pg/mL Normal 11-61 [facility] Comment on above: Order Comment: Order Date: 03/15/25Order Info: 0565-1 - PTHIN Performed By: #### L 101.9900, L100.0100, L500.4050, L501.5200, L509.1000, M100.2200, L501.9520, L400.0001 ####[facility] [address] [place], [place], [address] Pro- Brain NATRIURETIC PEPTI Arlen 03-15-2025 Natriuretic peptide B (Bld) [Mass/Vol] 2527 pg/mL High <=1800 [facility] Comment on above: Order Comment: Order Date: 02/25/25Order Info: 0667-1 - BMPOrder Date: 03/15/25Order Info: 0786-1 - CMPOrder Info: 51640-4 - MGOrder Info: 3016-3 - TSH Result Comment: Hear t Failure Unlikely: < 300 pg/mLHeart Failure Likely< 50 Years: > 450 pg/mL50-75 Years: > 900 pg/mL>75 Years: > 1800 pg/mL Performed By: #### L 506.1001, L503.7505 ####[facility] [address] [place], [address] Ribs Unil 2V No CXRon 2024 Ribs Unil 2V No CXR Normal [facility] Thyroid Stim Hormone (TSH)on 03-15-2025 TSH 2.490 uIU/mL Normal 0.300-4.200 [facility] Comment on above: Order Comment: Order Date: 02/25/25Order Info: 0667-1 - BMPOrder Date: 03/15/25Order Info: 0786-1 - CMPOrder Info: 12224-0 - MGOrder Info: 3016-3 - TSH Performed By: #### L 101.9900, L100.0100, L500.4050, L501.5200, L509.1000, M100.2200, L501.9520, L400.0001 ####[facility] [address] [place], [place], [address] Urinalysis, Completeon 03-15 EPI,SQUAMOUS 0-5 SEEN Normal 5-10 [facility] Comment on above: Order Comment: Order Date: 03/15/25Order Info: 33140-5 - UACCOLLECTOR TO SPECIFY Performed By: #### L 101.9900, L100.0100, L500.4050, L501.5200, L509.1000, M100.2200, L501.9520, L400.0001 ####[facility] [address] [place], [address] RBC 0-5 SEEN Normal 0-5 [facility] Comment on above: Order Comment: Order Date: 03/15/25Order Info: 49415-2 - UACCOLLECTOR TO SPECIFY Performed By: #### L 101.9900, L100.0100, L500.4050, L501.5200, L509.1000, M100.2200, L501.9520, L400.0001 ####[facility] [address] [place], [address] WBC 0-5 SEEN Normal 0-5 [facility] Comment on above: Order Comment: Order Date: 03/15/25Order Info: 97686-2 - UACCOLLECTOR TO SPECIFY Performed By: #### L 101.9900, L100.0100, L500.4050, L501.5200, L509.1000, M100.2200, L501.9520, L400.0001 ####[facility] [address] [place], [address] BACTERIA 0 SEEN Normal None Seen [facility] Comment on above: Order Comment: Order Date: 03/15/25Order Info: 30044-4 - UACCOLLECTOR TO SPECIFY Performed By: #### L 101.9900, L100.0100, L500.4050, L501.5200, L509.1000, M100.2200, L501.9520, L400.0001 ####[facility] [address] [place], [address] Mucus Ql (Urine sed) 0 SEEN Normal [facility] Comment on above: Order Comment: Order Date: 03/15/25Order Info: 06974-4 - UACCOLLECTOR TO SPECIFY Performed By: #### L 101.9900, L100.0100, L500.4050, L501.5200, L509.1000, M100.2200, L501.9520, L400.0001 ####[facility] [address] [place], [address] Vitamin D,25 Hydroxyon 03-15 Vitamin D 25-OH 68.9 ng/mL Normal 30-100 [facility] Comment on above: Order Comment: Order Date: 02/25/25Order Info: 0667-1 - BMPOrder Date: 03/15/25Order Info: 0786-1 - CMPOrder Info: 12351-7 - MGOrder Info: 3016-3 - TSH Result Comment: Nathalie min D StatusDeficiency: <20 ng/mL (50nmol/L)Insufficiency: 20-30 ng/mL (50-75 nmol/L)Sufficiency: 30-100 ng/mL (75-250 nmol/L)Toxicity: >100 ng/mL (>250 nmol/L) Performed By: #### L 506.1001, L503.7505 ####[facility] [address] [place], [address] CBC-Complete Blood Cnt No Di ffon 02-22-2025 Erythrocyte distribution width (RBC) [Ratio] 14.2 % Normal 11.6-14.6 [facility] Comment on above: Order Comment: Order Date: 01/14/25Order Info: 85942-3 - CBC Performed By: #### L 501.5200, L503.6550, L100.0500 ####[facility] [address] [place], [address] Hematocrit (Bld) [Volume fraction] 35.5 % Low 37-47 [facility] Comment on above: Order Comment: Order Date: 01/14/25Order Info: 94924-4 - CBC Performed By: #### L 501.5200, L503.6550, L100.0500 ####[facility] [address] [place], [address] Hemoglobin (Bld) [Mass/Vol] 11.1 g/dL Low 12.0-15.0 [facility] Comment on above: Order Comment: Order Date: 01/14/25Order Info: [id number] - CBC Performed By: #### L 501.5200, L503.6550, L100.0500 ####[facility] [address] [place], [address] MCH (RBC) [Entitic mass] 27.8 pg Normal 27.0-32.0 [facility] Comment on above: Order Comment: Order Date: 01/14/25Order Info: 66527-5 - CBC Performed By: #### L 501.5200, L503.6550, L100.0500 ####[facility] [address] [place], [address] MCHC (RBC) [Mass/Vol] 31.3 g/dL Low 32-36 [facility] Comment on above: Order Comment: Order Date: 01/14/25Order Info: 84881-8 - CBC Performed By: #### L 501.5200, L503.6550, L100.0500 ####[facility] [address] [place], [address] MCV (RBC) [Entitic vol] 88.8 fL Normal 81-99 [facility] Comment on above: Order Comment: Order Date: 01/14/25Order Info: [id number] - CBC Performed By: #### L 501.5200, L503.6550, L100.0500 ####[facility] [address] [place], [address] Platelet mean volume (Bld) [Entitic vol] 10.2 fL Normal 6.2-12.0 [facility] Comment on above: Order Comment: Order Date: 01/14/25Order Info: 72496-9 - CBC Performed By: #### L 501.5200, L503.6550, L100.0500 ####[facility] [address] [place], [address] Platelets (Bld) [#/Vol] 349 10*3/uL Normal 150-450 [facility] Comment on above: Order Comment: Order Date: 01/14/25Order Info: [id number] - CBC Performed By: #### L [id number], [id number], [id number] ####[facility] [id number] [place], [address] RBC (Bld) [#/Vol] 4.00 10*6/uL Low 4.2-5.4 [facility] Comment on above: Order Comment: Order Date: 01/14/25Order Info: [id number] - CBC Performed By: #### L [id number], [id number], [id number] ####[facility] [id number] [place], [address] RDW SD 46.0 fl High 35.1-43.9 [facility] Comment on above: Order Comment: Order Date: 01/14/25Order Info: [id number] - CBC Performed By: #### L [id number], [id number], [id number] ####[facility] [id number] [place], [address] WBC (Bld) [#/Vol] 7.1 10*3/uL Normal 4.4-11.0 [facility] Comment on above: Order Comment: Order Date: 01/14/25Order Info: [id number] - CBC Performed By: #### L [id number], [id number], [id number] ####[facility] [id number] [place], [address] Ferritinon 02-22-2025 Ferritin [Mass/Vol] 61 ng/mL Normal 22-378 [facility] Comment on above: Order Comment: PER I NTERFACE COMMENT-BTNPOrder Date: 01/14/25Order Info: - MGOrder Info: [id number] - OCSAR Performed By: #### L 501.5200, [id number], [id number] ####[facility] [id number] [place], [place], [address] Magnesiumon 02-22-2025 Magnesium [Mass/Vol] 2.3 mg/dL High 1.5-2.2 [facility] Comment on above: Order Comment: PER I NTERFACE COMMENT-BTNPOrder Date: 01/14/25Order Info: - MGOrder Info: [id number] - OSCAR Performed By: #### L 501.5200, L503.6550, L100.0500 ####[facility] [address] [place], [place], [address] Pro- Brain NATRIURETIC PEPTI Arlen 02-22-2025 Natriuretic peptide B (Bld) [Mass/Vol] 1468 pg/mL Normal <=1800 [facility] Comment on above: Order Comment: PER I NTERFACE COMMENT-BTNPOrder Date: 01/14/25Order Info: - MGOrder Info: [id number] - OSCAR Result Comment: Hear t Failure Unlikely: < 300 pg/mLHeart Failure Likely< 50 Years: > 450 pg/mL50-75 Years: > 900 pg/mL>75 Years: > 1800 pg/mL Performed By: #### L 503.7505 ####[facility] [address] [place], [place], [address] Cardiology Visit Reporton Cardiology Visit Report Normal [facility] Anion gap in Serum or Plasma Ordered By: Sho Andino on 11-19-2024 Anion gap [Moles/Vol] 10 mmol/L 5-15 [facility] BUN/creatinine ratioOrdered By: Sho Andino on 11-19-2024 Urea nitrogen/Creatinine [Mass ratio] 18.4 mg/mg 10-20 [facility] Basic Metabolic Profile (BMP )on 11-19-2024 BUN/CRE 18.4 RATIO Normal 10-20 [facility] Comment on above: Performed By: #### L 500.2500, L503.7505 ####[facility] [address] [place], [address] Calcium [Mass/Vol] 8.3 mg/dL Normal 7.6-11.0 [facility] Comment on above: Performed By: #### L 500.2500, L503.7505 ####[facility] [address] [place], [address] Chloride [Moles/Vol] 98 mmol/L Normal 98-108 [facility] Comment on above: Performed By: #### L 500.2500, L503.7505 ####[facility] [address] [place], [address] CO2 [Moles/Vol] 26.0 mmol/L Normal 21.0-32.0 [facility] Comment on above: Performed By: #### L 500.2500, L503.7505 ####[facility] [address] [place], [address] Creatinine [Mass/Vol] 0.80 mg/dL Normal 0.70-1.20 [facility] Comment on above: Performed By: #### L 500.2500, L503.7505 ####[facility] [address] [place], [address] GAP 10 Normal 5-15 [facility] Comment on above: Performed By: #### L 500.2500, L503.7505 ####[facility] [address] [place], [address] GFR/1.73 sq M.predicted among non-blacks MDRD (S/P/Bld) [Vol rate/Area] 71 mL/min/{1.73_m2} Normal >60 [facility] Comment on above: Result Comment: mL/m in/1.73m2 CKD-EPI Creatinine Equation (2020) Performed By: #### L 500.2500, L503.7505 ####[facility] [address] [place], [address] Glucose [Mass/Vol] 108 mg/dL High 70-99 [facility] Comment on above: Performed By: #### L 500.2500, L503.7505 ####[facility] [address] [place], [address] Potassium [Moles/Vol] 4.5 mmol/L Normal 3.3-5.1 [facility] Comment on above: Performed By: #### L 500.2500, L503.7505 ####[facility] [address] [place], [address] Sodium [Moles/Vol] 134 mmol/L Normal 133-145 [facility] Comment on above: Performed By: #### L 500.2500, L503.7505 ####[facility] [address] [place], [address] Urea nitrogen [Mass/Vol] 15 mg/dL Normal 4-19 [facility] Comment on above: Performed By: #### L 500.2500, L503.7505 ####[facility] [address] [place], [address] Carbon dioxide, total [Moles /volume] in Central venous bloodOrdered By: Sho Andino on 11-19-2024 CO2 [Moles/Vol] 26.0 mmol/L 21.0-32.0 [facility] Cardiology Visit Reporton Cardiology Visit Report Normal [facility] Chloride assayOrdered By: Jossue Andino on 11-19-2024 Chloride [Moles/Vol] 98 mmol/L 98-108 [facility] Glomerular filtration rate ( GFR) estimation/1.73 sq m using serum, plasma, or whole bOrdered By: Sho Andino on 11-19-2024 GFR/1.73 sq M.predicted among non-blacks MDRD (S/P/Bld) [Vol rate/Area] 71 mL/min/{1.73_m2} >60 [facility] L503.7505on 11-19-2024 Natriuretic peptide B (Bld) [Mass/Vol] 628 pg/mL Normal <=1800 [facility] Comment on above: Result Comment: Hear t Failure Unlikely: < 300 pg/mLHeart Failure Likely< 50 Years: > 450 pg/mL50-75 Years: > 900 pg/mL>75 Years: > 1800 pg/mL Performed By: #### L 500.2500, L503.7505 ####[facility] [address] [place], [place], [id number] Natriuretic peptide.B prohor elier N-Terminal [Mass/volume] in Serum or PlasmaOrdered By: Sho Andino on 11-19-2024 Natriuretic peptide.B prohormone N-Terminal [Mass/Vol] 628 pg/mL <1800 [facility] Potassium measurement (mass/ volume)Ordered By: Sho Andino on 11-19-2024 Potassium (Unsp spec) [Mass/Vol] 4.5 mmol/L 3.3-5.1 [facility] Serum creatinine measurement (mass/volume)Ordered By: Sho Andino on 11-19-2024 Creatinine [Mass/Vol] 0.80 mg/dL 0.70-1.20 [facility] Serum glucose measurement (m ass/volume)Ordered By: Sho Andino on 11-19-2024 Glucose [Mass/Vol] 108 mg/dL High 70-99 [facility] Serum or plasma calcium manuel urement (mass/volume)Ordered By: Sho Andino on 11-19-2024 Calcium [Mass/Vol] 8.3 mg/dL 7.6-11.0 [facility] Serum or plasma urea nitroge n measurement (mass/volume)Ordered By: Sho Andino on 11-19-2024 Urea nitrogen [Mass/Vol] 15 mg/dL 4-19 [facility] Sodium levelOrdered By: Elsie Andino on 11-19-2024 Sodium [Moles/Vol] 134 mmol/L 133-145 [facility] 12 Lead EKGon 11-17-2024 12 Lead EKG Normal [facility] Absolute lymphocyte countOrd ered By: Tylor Hendrickson on 11-17-2024 Lymphocytes Auto (Unsp spec) [#/Vol] 1.78 10*3/uL 0.83-4.51 [facility] Anion gap in Serum or Plasma Ordered By: Tylor Hendrickson on 11-17-2024 Anion gap [Moles/Vol] 14 mmol/L -15 [facility] Automated lymphocyte count a s percentage of total leukocytesOrdered By: Tylor Hendrickson on 11-17-2024 Lymphocytes/100 WBC Auto (Unsp spec) 21.5 % 19-41 [facility] BUN/creatinine ratioOrdered By: Tylor Hendrickson on 11-17-2024 Urea nitrogen/Creatinine [Mass ratio] 20.6 mg/mg High 10-20 [facility] Basic Metabolic Profile (BMP )on 11-17-2024 BUN/CRE 20.6 RATIO High 10- [facility] Comment on above: Performed By: #### L 503.7505, L100.0100, L500.2500, L501.4021 ####[facility] [address] [place], [address] ECRCL 37.43 ml/min Low 50-250 [facility] Comment on above: Performed By: #### L 503.7505, L100.0100, L500.2500, L501.4021 ####[facility] [address] [place], [address] GAP 14 Normal - [facility] Comment on above: Performed By: #### L 503.7505, L100.0100, L500.2500, L501.4021 ####[facility] [address] [place], [address] Potassium [Moles/Vol] 4.7 mmol/L Normal 3.3-5.1 [facility] Comment on above: Performed By: #### L 503.7505, L100.0100, L500.2500, L501.4021 ####[facility] [address] [place], [address] Basophil percentageOrdered B y: Tylor Hendrickson on 11-17-2024 Basophils/100 WBC (Bld) 0.8 % 0-1 [facility] CBC W/Diff, Automatedon Absolute Lymph 1.78 X10 3/uL Normal 0.83-4.51 [facility] Comment on above: Performed By: #### L 503.7505, L100.0100, L500.2500, L501.4021 ####[facility] [address] [place], [address] Absolute Neut 5.4 X10 3/uL Normal 2.0-7.7 [facility] Comment on above: Performed By: #### L 503.7505, L100.0100, L500.2500, L501.4021 ####[facility] [address] [place], [address] Basophils/100 WBC (Bld) 0.8 % Normal 0-1 [facility] Comment on above: Performed By: #### L 503.7505, L100.0100, L500.2500, L501.4021 ####[facility] [address] [place], [address] Eosinophils/100 WBC (Bld) 1.7 % Normal 0-5 [facility] Comment on above: Performed By: #### L 503.7505, L100.0100, L500.2500, L501.4021 ####[facility] [address] [place], [address] Erythrocyte distribution width (RBC) [Ratio] 15.7 % High 11.6-14.6 [facility] Comment on above: Performed By: #### L 503.7505, L100.0100, L500.2500, L501.4021 ####[facility] [address] [place], [address] Hematocrit (Bld) [Volume fraction] 31.2 % Low 37-47 [facility] Comment on above: Performed By: #### L 503.7505, L100.0100, L500.2500, L501.4021 ####[facility] [address] [place], [address] Hemoglobin (Bld) [Mass/Vol] 9.6 g/dL Low 12.0-15.0 [facility] Comment on above: Performed By: #### L 503.7505, L100.0100, L500.2500, L501.4021 ####[facility] [address] [place], [address] IG% 0.700 Normal 0.0-0.9 [facility] Comment on above: Result Comment: IG% - Immature Granulocytes (promyelocytes, myelocytes andmetamyelocytes) > 1% indicates that a LEFT SHIFT is Present. Performed By: #### L 503.7505, L100.0100, L500.2500, L501.4021 ####[facility] [address] [place], [address] Lymphocytes/100 WBC (Bld) 21.5 % Normal 19-41 [facility] Comment on above: Performed By: #### L 503.7505, L100.0100, L500.2500, L501.4021 ####[facility] [address] [place], [address] MCH (RBC) [Entitic mass] 28.4 pg Normal 27.0-32.0 [facility] Comment on above: Performed By: #### L 503.7505, L100.0100, L500.2500, L501.4021 ####[facility] [address] [place], [address] MCHC (RBC) [Mass/Vol] 30.8 g/dL Low 32-36 [facility] Comment on above: Performed By: #### L 503.7505, L100.0100, L500.2500, L501.4021 ####[facility] [address] [place], [address] MCV (RBC) [Entitic vol] 92.3 fL Normal 81-99 [facility] Comment on above: Performed By: #### L 503.7505, L100.0100, L500.2500, L501.4021 ####[facility] [address] [place], [address] Monocytes/100 WBC (Bld) 9.6 % Normal 0-10 [facility] Comment on above: Performed By: #### L 503.7505, L100.0100, L500.2500, L501.4021 ####[facility] [address] [place], [address] Neutrophils/100 WBC (Bld) 65.7 % Normal 47-70 [facility] Comment on above: Performed By: #### L 503.7505, L100.0100, L500.2500, L501.4021 ####[facility] [address] [place], [address] Nucleated RBC (Bld) [#/Vol] 0 10*3/uL Normal 0-5 [facility] Comment on above: Performed By: #### L 503.7505, L100.0100, L500.2500, L501.4021 ####[facility] [address] [place], [address] Platelet mean volume (Bld) [Entitic vol] 9.2 fL Normal 6.2-12.0 [facility] Comment on above: Performed By: #### L 503.7505, L100.0100, L500.2500, L501.4021 ####[facility] [address] [place], [address] Platelets (Bld) [#/Vol] 401 10*3/uL Normal 150-450 [facility] Comment on above: Performed By: #### L 503.7505, L100.0100, L500.2500, L501.4021 ####[facility] [address] [place], [address] RBC (Bld) [#/Vol] 3.38 10*6/uL Low 4.2-5.4 [facility] Comment on above: Performed By: #### L 503.7505, L100.0100, L500.2500, L501.4021 ####[facility] [address] [place], [address] RDW SD 53.4 fl High 35.1-43.9 [facility] Comment on above: Performed By: #### L 503.7505, L100.0100, L500.2500, L501.4021 ####[facility] [address] [place], [address] WBC (Bld) [#/Vol] 8.3 10*3/uL Normal 4.4-11.0 [facility] Comment on above: Performed By: #### L 503.7505, L100.0100, L500.2500, L501.4021 ####[facility] [address] [place], [address] Carbon dioxide, total [Moles /volume] in Central venous bloodOrdered By: Tylor Hendrickson on 11-17-2024 CO2 [Moles/Vol] 22.4 mmol/L Normal 21.0-32.0 [facility] Comment on above: Performed By: #### L 503.7505, L100.0100, L500.2500, L501.4021 ####[facility] [address] [place], [address] Chest 1 View (Portable)on Chest 1 View (Portable) Normal [facility] Chloride assayOrdered By: Cari Hendrickson on 11-17-2024 Chloride [Moles/Vol] 99 mmol/L Normal 98-108 [facility] Comment on above: Performed By: #### L 503.7505, L100.0100, L500.2500, L501.4021 ####[facility] [address] [place], [place], [address] Emergency Department Summary on 11-17-2024 Emergency Department Summary Normal [facility] Eosinophil percentageOrdered By: Tylor Hendrickson on 11-17-2024 Eosinophils/100 WBC (Bld) 1.7 % 0-5 [facility] Erythrocyte distribution wid th ratioOrdered By: Tylor Hendrickson on 11-17-2024 Erythrocyte distribution width (RBC) [Ratio] 15.7 % High 11.6-14.6 [facility] Erythrocyte distribution wid th standard deviationOrdered By: Tylor Hendrickson on 11-17-2024 Erythrocyte distribution width (RBC) [Ratio] 53.4 fl High 35.1-43.9 [facility] Glomerular filtration rate ( GFR) estimation/1.73 sq m using serum, plasma, or whole bOrdered By: Tylor Hendrickson on 11-17-2024 GFR/1.73 sq M.predicted among non-blacks MDRD (S/P/Bld) [Vol rate/Area] 60 mL/min/{1.73_m2} Normal >60 [facility] Comment on above: Result Comment: mL/m in/1.73m2 CKD-EPI Creatinine Equation (2020) Performed By: #### L 503.7505, L100.0100, L500.2500, L501.4021 ####[facility] [address] [place], [place], [address] Hematocrit Auto (Bld) [Volum e fraction]Ordered By: Tylor Hendrickson on 11-17-2024 Hematocrit (Bld) [Volume fraction] 31.2 % Low 37-47 [facility] Hemoglobin measurementOrdere d By: Tylor Hendrickson on 11-17-2024 Hemoglobin (Bld) [Mass/Vol] 9.6 g/dL Low 12.0-15.0 [facility] Immature granulocytes/100 WB C Auto (Bld)Ordered By: Tylor Hendrickson on 11-17-2024 Immature granulocytes/100 WBC (Bld) 0.700 % 0.0-0.9 [facility] L499.0042on 11-17-2024 Trop T High Sen 34 ng/L High <=14 [facility] Comment on above: Performed By: #### L 499.0042 ####[facility] [address] [place], [address] L499.0043on 11-17-2024 Trop T High Sen 34 ng/L High <=14 [facility] Comment on above: Performed By: #### L 499.0043 ####[facility] [address] [place], [address] L501.4021on 11-17-2024 Trop T High Sen 35 ng/L High <=14 [facility] Comment on above: Performed By: #### L 503.7505, L100.0100, L500.2500, L501.4021 ####[facility] [address] [place], [address] L503.7505on 11-17-2024 Natriuretic peptide B (Bld) [Mass/Vol] 666 pg/mL Normal <=1800 [facility] Comment on above: Result Comment: Hear t Failure Unlikely: < 300 pg/mLHeart Failure Likely< 50 Years: > 450 pg/mL50-75 Years: > 900 pg/mL>75 Years: > 1800 pg/mL Performed By: #### L 503.7505, L100.0100, L500.2500, L501.4021 ####[facility] [address] [place], [address] MCV (mean corpuscular volume ) determinationOrdered By: Tylor Hendrickson on 11-17-2024 MCV (RBC) [Entitic vol] 92.3 fL 81-99 [facility] Mean corpuscular hemoglobin (MCH) determinationOrdered By: Tylor Hendrickson on 11-17-2024 MCH (RBC) [Entitic mass] 28.4 pg 27.0-32.0 [facility] Monocyte percentageOrdered B y: Tylor Hendrickson on 11-17-2024 Monocytes/100 WBC (Bld) 9.6 % 0-10 [facility] Natriuretic peptide.B prohor elier N-Terminal [Mass/volume] in Serum or PlasmaOrdered By: Tylor Hendrickson on 11-17-2024 Natriuretic peptide.B prohormone N-Terminal [Mass/Vol] 666 pg/mL <1800 [facility] Neutrophil percentageOrdered By: Tylor Hendrickson on 11-17-2024 Neutrophils/100 WBC (Bld) 65.7 % 47-70 [facility] Platelet countOrdered By: Cari Hendrickson on 11-17-2024 Platelets (Bld) [#/Vol] 401 10*3/uL 150-450 [facility] Potassium measurement (mass/ volume)Ordered By: Tyolr Hendrickson on 11-17-2024 Potassium (Unsp spec) [Mass/Vol] 4.7 mmol/L 3.3-5.1 [facility] RBC Auto (Bld) [#/Vol]Ordere d By: Tylor Hendrickson on 11-17-2024 RBC (Bld) [#/Vol] 3.38 10*6/uL Low 4.2-5.4 [facility] Serum creatinine measurement (mass/volume)Ordered By: Tylor Hendrickson on 11-17-2024 Creatinine [Mass/Vol] 0.92 mg/dL Normal 0.70-1.20 [facility] Comment on above: Performed By: #### L 503.7505, L100.0100, L500.2500, L501.4021 ####[facility] [address] [place], [place], [id number] Serum glucose measurement (m ass/volume)Ordered By: Tylor Hendrickson on 11-17-2024 Glucose [Mass/Vol] 106 mg/dL High 70-99 [facility] Comment on above: Performed By: #### L 503.7505, L100.0100, L500.2500, L501.4021 ####[facility] [address] [place], [address] Serum or plasma calcium manuel urement (mass/volume)Ordered By: Tylor Hendrickson on 11-17-2024 Calcium [Mass/Vol] 8.1 mg/dL Normal 7.6-11.0 [facility] Comment on above: Performed By: #### L 503.7505, L100.0100, L500.2500, L501.4021 ####[facility] [address] [place], [address] Serum or plasma urea nitroge n measurement (mass/volume)Ordered By: Tylor Hendrickson on 11-17-2024 Urea nitrogen [Mass/Vol] 19 mg/dL Normal 4-19 [facility] Comment on above: Performed By: #### L 503.7505, L100.0100, L500.2500, L501.4021 ####[facility] [address] [place], [address] Sodium levelOrdered By: Tylor Hendrickson on 11-17-2024 Sodium [Moles/Vol] 136 mmol/L Normal 133-145 [facility] Comment on above: Performed By: #### L 503.7505, L100.0100, L500.2500, L501.4021 ####[facility] [address] [place], [address] Troponin T.cardiac [Mass/vol ume] in Serum or Plasma by High sensitivity methodOrdered By: Tylor Hendrickson on 11-17-2024 Troponin T.cardiac High sensitivity method [Mass/Vol] 34 ng/L High <14 [facility] Troponin T.cardiac High sensitivity method [Mass/Vol] 34 ng/L High <14 [facility] Troponin T.cardiac High sensitivity method [Mass/Vol] 35 ng/L High <14 [facility] White blood cell (WBC) count Ordered By: Tylor Hendrickson on 11-17-2024 WBC (Bld) [#/Vol] 8.3 10*3/uL 4.4-11.0 [facility] Basic metabolic 2000 panelon 11-05-2024 Anion gap [Moles/Vol] 10 mmol/L Normal 10-20 [facility] Comment on above: Performed By: #### 3 0934-4 #### CURTIS SCHREIBER ([id number]) [facility] ([facility]) [facility] [place] [address] Calcium [Mass/Vol] 7.8 mg/dL Low 8.6-10.3 [facility] Comment on above: Performed By: #### 3 0934-4 #### CURTIS SCHREIBER ([id number]) [facility] ([facility]) [address] [place] [address] Chloride [Moles/Vol] 101 mmol/L Normal 98-107 [facility] Comment on above: Performed By: #### 3 0934-4 #### CURTIS SCHREIBER ([id number]) [facility] ([facility]) [address] [place] [address] CO2 [Moles/Vol] 28 mmol/L Normal 21-32 [facility] Comment on above: Performed By: #### 3 0934-4 #### CURTIS SCHREIBER ([id number]) [facility] ([facility]) [facility] [place] [address] Creatinine [Mass/Vol] 0.81 mg/dL Normal 0.50-1.05 [facility] Comment on above: Performed By: #### 3 0934-4 #### CURTIS SCHREIBER ([id number]) [facility] ([facility]) [facility] [place] [address] Glomerular filtration rate/1.73 sq M.predicted 70 mL/min/1.73m*2 Normal >60 [facility] Comment on above: Result Comment: Calc ulations of estimated GFR are performed using the 2020 CKD-EPI Study Refit equation without the race variable for the IDMS-Traceable creatinine methods. https://jasn.asnjournals.org/content/early/ASN.2020 494702 Performed By: #### 3 0934-4 #### CURTIS SCHREIBER ([id number]) [facility] ([facility]) [address] [place] [address] Glucose [Mass/Vol] 95 mg/dL Normal 74-99 [facility] Comment on above: Performed By: #### 3 34-4 #### CURTIS SCHREIBER ([id number]) [facility] ([facility]) [address] [place] [address] Potassium [Moles/Vol] 5.0 mmol/L Normal 3.5-5.3 [facility] Comment on above: Performed By: #### 3 34-4 #### CURTIS SCHREIBER ([id number]) [facility] ([facility]) [address] [place] [address] Sodium [Moles/Vol] 134 mmol/L Low 136-145 [facility] Comment on above: Performed By: #### 3 0934-4 #### CURTIS SCHREIBER ([id number]) [facility] ([facility]) [address] [place] [address] Urea nitrogen [Mass/Vol] 27 mg/dL High 6-23 [facility] Comment on above: Performed By: #### 3 34-4 #### CURTIS SCHREIBER ([id number]) [facility] ([facility]) [address] [place] [address] Comprehensive metabolic 2000 panelon 10-29-2024 Albumin BCP dye [Mass/Vol] 3.2 g/dL Low 3.4-5.0 [facility] Comment on above: Performed By: #### 3 0934-4 #### CURTIS SCHREIBER ([id number]) [facility] ([facility]) [address] [place] [address] ALP [Catalytic activity/Vol] 110 U/L Normal 33-136 [facility] Comment on above: Performed By: #### 3 0934-4 #### CURTIS SCHREIBER ([id number]) [facility] ([facility]) [address] [place] [address] ALT With P-5'-P [Catalytic activity/Vol] 12 U/L Normal 7-45 [facility] Comment on above: Result Comment: Bobbi ents treated with Sulfasalazine may generate falsely decreased results for ALT. Performed By: #### 3 0934-4 #### CURTIS SCHREIBER ([id number]) [facility] ([facility]) [address] [place] [address] Anion gap [Moles/Vol] 12 mmol/L Normal 10-20 [facility] Comment on above: Performed By: #### 3 34-4 #### CURTIS SCHREIBER ([id number]) [facility] ([facility]) [address] [place] [address] AST With P-5'-P [Catalytic activity/Vol] 14 U/L Normal 9-39 [facility] [facility] Comment on above: Performed By: #### 3 34-4 #### CURTIS SCHREIBER ([id number]) [facility] ([facility]) [address] [place] [address] Bilirubin [Mass/Vol] 0.4 mg/dL Normal 0.0-1.2 [facility] Comment on above: Performed By: #### 3 0934-4 #### CURTIS SCHREIBER ([id number]) [facility] ([facility]) [address] [place] [address] Calcium [Mass/Vol] 7.9 mg/dL Low 8.6-10.3 [facility] Comment on above: Performed By: #### 3 0934-4 #### CURTIS SCHREIBER ([id number]) [facility] ([facility]) [address] [place] [address] Chloride [Moles/Vol] 100 mmol/L Normal 98-107 [facility] Comment on above: Performed By: #### 3 0934-4 #### CURTIS SCHREIBER ([id number]) [facility] ([facility]) [address] [place] [address] CO2 [Moles/Vol] 26 mmol/L Normal 21-32 [facility] Comment on above: Performed By: #### 3 0934-4 #### CURTIS SCHREIBER ([id number]) [facility] ([facility]) [facility] [place] [address] Creatinine [Mass/Vol] 1.08 mg/dL High 0.50-1.05 [facility] Comment on above: Performed By: #### 3 0934-4 #### CURTIS SCHREIBER ([id number]) [facility] ([facility]) [address] [place] [address] Glomerular filtration rate/1.73 sq M.predicted 50 mL/min/1.73m*2 Low >60 [facility] Comment on above: Result Comment: Calc ulations of estimated GFR are performed using the 2020 CKD-EPI Study Refit equation without the race variable for the IDMS-Traceable creatinine methods. https://jasn.asnjournals.org/content/early//ASN.2020 743190 Performed By: #### 3 0934-4 #### CURTIS SCHREIBER ([id number]) [facility] ([facility]) [address] [place] [address] Glucose [Mass/Vol] 91 mg/dL Normal 74-99 [facility] Comment on above: Performed By: #### 3 0934-4 #### CURTIS SCHREIBER ([id number]) [facility] ([facility]) [address] [place] [address] Potassium [Moles/Vol] 5.3 mmol/L Normal 3.5-5.3 [facility] Comment on above: Performed By: #### 3 0934-4 #### CURTIS SCHREIBER ([id number]) [facility] ([facility]) [address] [place] [address] Protein [Mass/Vol] 5.1 g/dL Low 6.4-8.2 [facility] Comment on above: Performed By: #### 3 0934-4 #### CURTIS SCHREIBER ([id number]) [facility] ([facility]) [address] [place] [address] Sodium [Moles/Vol] 133 mmol/L Low 136-145 [facility] Comment on above: Performed By: #### 3 0934-4 #### CURTIS SCHREIBER ([id number]) [facility] ([facility]) [address] [place] [address] Urea nitrogen [Mass/Vol] 25 mg/dL High 6-23 [facility] Comment on above: Performed By: #### 3 0934-4 #### CURTIS SCHREIBER ([id number]) [facility] ([facility]) [address] [place] [address] Bacteria identifiedon 2024 Bacteria identified Cx Nom (U) Test: Urine Culture Specimen Source: Clean Catch/Voided Specimen Type: Urine Specimen Date: 10/22/2024657 Result Date: 10/23/2024731 Result Status: Final result Abnormal: No Resulting Lab: [facility] [id number] [place] [address] CULTURE No growth Normal [facility] Comment on above: Performed By: #### 3 0934-4 #### CURTIS SCHREIBER ([id number]) [facility] ([facility]) [address] [place] [address] CBC panel Auto (Bld)on 10-22 Erythrocyte distribution width (RBC) [Ratio] 14.2 % Normal 11.5-14.5 [facility] Comment on above: Performed By: #### 3 0934-4 #### CURTIS SCHREIBER ([id number]) [facility] ([facility]) [address] [place] [address] Hematocrit (Bld) [Volume fraction] 31.5 % Low 36.0-46.0 [facility] Comment on above: Performed By: #### 3 0934-4 #### CURTIS SCHREIBER ([id number]) [facility] ([facility]) [address] [place] [address] Hemoglobin (Bld) [Mass/Vol] 10.0 g/dL Low 12.0-16.0 [facility] Comment on above: Performed By: #### 3 0934-4 #### CURTIS SCHREIBER ([id number]) [facility] ([facility]) [address] [place] [address] MCH (RBC) [Entitic mass] 28.7 pg Normal 26.0-34.0 [facility] Comment on above: Performed By: #### 3 34-4 #### CURTIS SCHREIBER ([id number]) [facility] ([facility]) [address] [place] [address] MCHC (RBC) [Mass/Vol] 31.7 g/dL Low 32.0-36.0 [facility] Comment on above: Performed By: #### 3 34-4 #### CURTIS SCHREIBER ([id number]) [facility] ([facility]) [address] [place] [address] MCV (RBC) [Entitic vol] 90 fL Normal 80-100 U [facility] Comment on above: Performed By: #### 3 34-4 #### CURTIS SCHREIBER ([id number]) [facility] ([facility]) [address] [place] [address] Nucleated RBC/100 WBC (Bld) [Ratio] 0.0 /100 WBCs Normal 0.0-0.0 [facility] Comment on above: Performed By: #### 3 0934-4 #### CURTIS SCHREIBER ([id number]) [facility] ([facility]) [address] [place] [address]88[address] Platelets (Bld) [#/Vol] 424 x10*3/uL Normal 150-450 [facility] Comment on above: Performed By: #### 3 34-4 #### CURTIS SCHREIBER ([id number]) [facility] ([facility]) [address] [place] [address] RBC (Bld) [#/Vol] 3.49 x10*6/uL Low 4.00-5.20 [facility] Comment on above: Performed By: #### 3 34-4 #### CURTIS SCHREIBER ([id number]) [facility] ([facility]) [address] [place] [address] WBC (Bld) [#/Vol] 8.5 x10*3/uL Normal 4.4-11.3 [facility] Comment on above: Performed By: #### 3 0934-4 #### CURTIS SCHREIBER ([id number]) [facility] ([facility]) [address] [place] [address] Comprehensive metabolic 2000 panelon 10-22-2024 Albumin BCP dye [Mass/Vol] 3.4 g/dL Normal 3.4-5.0 [facility] Comment on above: Performed By: #### 3 34-4 #### CURTIS SCHREIBER ([id number]) [facility] ([facility]) [address] [place] [address] ALP [Catalytic activity/Vol] 84 U/L Normal 33-136 [facility] Comment on above: Performed By: #### 3 34-4 #### CURTIS SCHREIBER ([id number]) [facility] ([facility]) [address] [place] [address] ALT With P-5'-P [Catalytic activity/Vol] 17 U/L Normal 7-45 [facility] Comment on above: Result Comment: Bobbi ents treated with Sulfasalazine may generate falsely decreased results for ALT. Performed By: #### 3 0934-4 #### CURTIS SCHREIBER ([id number]) [facility] ([facility]) [address] [place], [place] [address] Anion gap [Moles/Vol] 13 mmol/L Normal 10-20 [facility] Comment on above: Performed By: #### 3 0934-4 #### CURTIS SCHREIBER ([id number]) [facility] ([facility]) [address] [place] [address] AST With P-5'-P [Catalytic activity/Vol] 17 U/L Normal 9-39 [facility] Comment on above: Performed By: #### 3 0934-4 #### CURTIS SCHREIBER ([id number]) [facility] ([facility]) [address] [place] [address] Bilirubin [Mass/Vol] 0.5 mg/dL Normal 0.0-1.2 [facility] Comment on above: Performed By: #### 3 0934-4 #### CURTIS SCHREIBER ([id number]) [facility] ([facility]) [address] [place] [address] Calcium [Mass/Vol] 7.6 mg/dL Low 8.6-10.3 [facility] Comment on above: Performed By: #### 3 0934-4 #### CURTIS SCHREIBER ([id number]) [facility] ([facility]) [address] [place] [address] Chloride [Moles/Vol] 93 mmol/L Low 98-107 [facility] Comment on above: Performed By: #### 3 0934-4 #### CURTIS SCHREIBER ([id number]) [facility] ([facility]) [address] [place] [address] CO2 [Moles/Vol] 26 mmol/L Normal 21-32 [facility] Comment on above: Performed By: #### 3 0934-4 #### CURTIS SCHREIBER ([id number]) [facility] ([facility]) [address] [place] [address] Creatinine [Mass/Vol] 1.19 mg/dL High 0.50-1.05 [facility] Comment on above: Performed By: #### 3 0934-4 #### CURTIS SCHREIBER ([id number]) [facility] ([facility]) [address] [place] [address] Glomerular filtration rate/1.73 sq M.predicted 44 mL/min/1.73m*2 Low >60 [facility] Comment on above: Result Comment: Calc ulations of estimated GFR are performed using the 2020 CKD-EPI Study Refit equation without the race variable for the IDMS-Traceable creatinine methods. https://jasn.asnjournals.org/content/early/ASN.2020 177199 Performed By: #### 3 34-4 #### CURTIS SCHREIBER ([id number]) [facility] ([facility]) [facility] [place] [address] Glucose [Mass/Vol] 98 mg/dL Normal 74-99 [facility] Comment on above: Performed By: #### 3 34-4 #### CURTIS SCHREIBER ([id number]) [facility] ([facility]) [address] [place] [address] Potassium [Moles/Vol] 4.6 mmol/L Normal 3.5-5.3 [facility] Comment on above: Performed By: #### 3 34-4 #### CURTIS SCHREIBER ([id number]) [facility] ([facility]) [address] [place] [address]6714 Protein [Mass/Vol] 5.5 g/dL Low 6.4-8.2 [facility] Comment on above: Performed By: #### 3 34-4 #### CURTIS SCHREIBER ([id number]) [facility] ([facility]) [address] [place] [address] 87994 Sodium [Moles/Vol] 127 mmol/L Low 136-145 [facility] Comment on above: Performed By: #### 3 34-4 #### CURTIS SCHREIBER ([id number]) [facility] ([facility]) [address] [place] [address]177 Urea nitrogen [Mass/Vol] 46 mg/dL High 6-23 [facility] Comment on above: Performed By: #### 3 34-4 #### CURTIS SCHREIBER ([id number]) [facility] ([facility]) [address] [place] [address] 79061 Urinalysis complete panel (U )on 10-22-2024 Appearance (U) Clear Normal Clear [facility] Comment on above: Performed By: #### 3 34-4 #### CURTIS SCHREIBER ([id number]) [facility] ([facility]) [address] [place] [address] Bilirubin (U) [Mass/Vol] Negative Normal NEGATIVE [facility] Comment on above: Performed By: #### 3 34-4 #### CURTIS SCHREIBER ([id number]) [facility] ([facility]) [address] [place] [address] Color (U) Yellow Normal Light-Yellow , Yellow, Dark-Yellow [facility] Comment on above: Performed By: #### 3 34-4 #### CURTIS SCHREIBER ([id number]) [facility] ([facility]) [address] [place], [place] [address] Glucose Auto test strip (U) [Mass/Vol] Normal Normal Normal [facility] Comment on above: Performed By: #### 3 34-4 #### CURTIS SCHREIBER ([id number]) [facility] ([facility]) [address] [place] [address] Ketones (U) [Mass/Vol] Negative Normal NEGATIVE [facility] Comment on above: Performed By: #### 3 34-4 #### CURTIS SCHREIBER ([id number]) [facility] ([facility]) [address] [place] [address] Leukocyte esterase Auto test strip Ql (U) Negative Normal NEGATIVE [facility] Comment on above: Performed By: #### 3 34-4 #### CURTIS SCHREIBER ([id number]) [facility] ([facility]) [address] [place], [place] [address] Nitrite Auto test strip Ql (U) Negative Normal NEGATIVE [facility] Comment on above: Performed By: #### 3 34-4 #### CURTIS SCHREIBER ([id number]) [facility] ([facility]) [address] [place] [address]604 pH (U) 5.5 [pH] Normal 5.0, 5.5, 6.0, 6.5, 7.0, 7.5, 8.0 [facility] Comment on above: Performed By: #### 3 34-4 #### CURTIS SCHREIBER ([id number]) [facility] ([facility]) [address] [place] [address] 28853 Protein (U) [Mass/Vol] 20 (TRACE) Normal NEGAT HEMANT, 10 (TRACE), 20 (TRACE) [facility] Comment on above: Performed By: #### 3 0934-4 #### CURTIS SCHREIBER ([id number]) [facility] ([facility]) [address] [place] [address] RBC (U) [#/Vol] Negative Normal NEGATIVE [facility] Comment on above: Performed By: #### 3 34-4 #### CURTIS SCHREIBER ([id number]) [facility] ([facility]) [address] [place] [address] Specific gravity (U) [Rel density] 1.015 Normal 1.005-1.035 [facility] Comment on above: Performed By: #### 3 0934-4 #### CURTIS SCHREIBER ([id number]) [facility] ([facility]) [address] [place] [address] Urobilinogen (U) [Mass/Vol] Normal Normal Normal [facility] Comment on above: Performed By: #### 3 34-4 #### CURTIS SCHREIBER ([id number]) [facility] ([facility]) [address] [place] [address] Urinalysis microscopic panel Auto Ql (U)on 10-22-2024 Crystals.amorphous Computer assisted (U) [#/Area] 1+ /HPF Normal NONE, 1+, 2+ [facility] Comment on above: Performed By: #### 3 0934-4 #### CURTIS SCHREIBER ([id number]) [facility] ([facility]) [address] [place] [address] Hyaline casts Auto (Urine sed) [#/Area] 1+ /LPF Abnormal NONE [facility] Comment on above: Performed By: #### 3 0934-4 #### CURTIS SCHREIBER ([id number]) [facility] ([facility]) [address] [place] [address] Leukocyte clumps Auto (Urine sed) [#/Area] RARE Normal Reference range not established. [facility] Comment on above: Performed By: #### 3 0934-4 #### CURTIS SCHREIBER ([id number]) [facility] ([facility]) [facility] [place] [address] RBC Auto (Urine sed) [#/Area] 1-2 Normal NONE, 1-2, 3-5 [facility] Comment on above: Performed By: #### 3 0934-4 #### CURTIS SCHREIBER ([id number]) [facility] ([facility]) [facility] [place] [id number] WBC Auto (Urine sed) [#/Area] 1-5 Normal 1-5, NONE [facility] Comment on above: Performed By: #### 3 0934-4 #### CURTIS SCHREIBER ([id number]) [facility] ([facility]) [address] [place] [address] Comprehensive metabolic 2000 panelon 10-13-2024 Albumin BCP dye [Mass/Vol] 3.7 g/dL 3.4 - 5.0 g/dL [facility] ALP [Catalytic activity/Vol] 81 U/L 33 - 136 U/L [facility] ALT With P-5'-P [Catalytic activity/Vol] 12 U/L 7 - 45 U/L [facility] Comment on above: Patients treated wit h Sulfasalazine may generate falsely decreased results for ALT. Anion gap [Moles/Vol] 14 mmol/L 10 - 2 0 mmol/L [facility] AST With P-5'-P [Catalytic activity/Vol] 15 U/L 9 - 39 U/L [facility] Bilirubin [Mass/Vol] 0.5 mg/dL 0.0 - 1 .2 mg/dL [facility] Calcium [Mass/Vol] 8.1 mg/dL Low 8.6 - 10. 3 mg/dL [facility] Chloride [Moles/Vol] 98 mmol/L 98 - 10 7 mmol/L [facility] CO2 [Moles/Vol] 24 mmol/L 21 - 32 mmol/L [facility] Creatinine [Mass/Vol] 1.52 mg/dL High 0.50 - 1.05 mg/dL [facility] GFR/1.73 sq M.predicted among non-blacks MDRD (S/P/Bld) [Vol rate/Area] 33 mL/min/{1.73_m2} Low - PINF [facility] Comment on above: Calculations of michael mated GFR are performed using the 2020 CKD-EPI Study Refit equation without the race variable for the IDMS-Traceable creatinine methods. https://jasn.asnjournals.org/content/early/ASN.2020 092445 Glucose [Mass/Vol] 128 mg/dL High 74 - 99 mg/dL [facility] Interpretation and review of laboratory results Abnormal [facility] Potassium [Moles/Vol] 4.8 mmol/L 3.5 - 5.3 mmol/L [facility] Protein [Mass/Vol] 6.4 g/dL 6.4 - 8.2 g/dL [facility] Sodium [Moles/Vol] 131 mmol/L Low 136 - 145 mmol/L [facility] Urea nitrogen [Mass/Vol] 59 mg/dL High 6 - 23 mg/dL [facility]2024 Lipase [Catalytic activity/Vol] 48 U/L 9 - 82 U/L [facility] Lipase [Catalytic activity/V ol]on 10-13-2024 Interpretation and review of laboratory results Normal [facility] Venipuncture immediately after or during the administration [...] Erin Garrett 10/13/2024 12:00 AM Dictation workstation: [id number] Interpreted By: Erin Garrett, STUDY: XR CHEST 1 VIEW; 10/12/2024 11:40 pm INDICATION: Signs/Symptoms:dyspn ea. COMPARISON: None. ACCESSION NUMBER(S): [id number] ORDERING CLINICIAN: NICHOLE GUERRA FINDINGS: CARDIOMEDIASTINAL SILHOUETTE: Cardiac silhouette is enlarged. Atherosclerotic calcification of the aorta. Mild interstitial prominence. LUNGS: No consolidation, pleural effusion or pneumothorax. ABDOMEN: No remarkable upper abdominal findings. BONES: There is age indeterminate fracture deformity of the left humeral neck. Chronic fracture deformity of the left mid clavicle suspected. [facility] - 10/13/2024 Interpreted By: Erin Garrett, STUDY: XR CHEST 1 VIEW; 10/12/2024 11:40 pm INDICATION: Signs/Symptoms:dyspn ea. COMPARISON: None. ACCESSION NUMBER(S): [id number] ORDERING CLINICIAN: NICHOLE GUERRA FINDINGS: CARDIOMEDIASTINAL SILHOUETTE: [...] Erin Garrett 10/13/2024 12:00 AM Dictation workstation: [id number] [facility] Work Phone: XR Chest Single viewOrdered By: Erin Garrett on 10-13-2024 [facility] Work Phone: Bacteria identifiedon 2024 Bacteria identified Cx Nom (U) Test: Urine Culture Specimen Source: Clean Catch/Voided Specimen Type: Urine Specimen Date: 10/12/20242340 Result Date: 10/14/2024 09 Result Status: Final result Abnormal: No Resulting Lab: [facility] [address] [place] [address] CULTURE Growth indicates contamination with mixed bacterial darci. Repeat culture if clinically indicated. Normal [facility] Comment on above: Performed By: #### 3 0934-4 #### ACEVEDO ABDOUL ([id number]) [facility] ([facility]) [address] [place] [address] CBC W Auto Differential pane l (Bld)on 10-12-2024 Basophils (Bld) [#/Vol] 0.06 10*3/uL [facility] Basophils/100 WBC (Bld) 0.7 % 0.0 - 2.0 % [facility] Eosinophils (Bld) [#/Vol] 0.31 10*3/uL [facility] Eosinophils/100 WBC (Bld) 3.6 % 0.0 - 6.0 % [facility] Erythrocyte distribution width (RBC) [Ratio] 13.9 % 11.5 - 14.5 % [facility] Hematocrit (Bld) [Volume fraction] 31.4 % Low 36.0 - 46.0 % [facility] Hemoglobin (Bld) [Mass/Vol] 9.9 g/dL Low 12.0 - 16.0 g/dL [facility] Immature granulocytes (Bld) [#/Vol] 0.08 10*3/uL [facility] Immature granulocytes/100 WBC (Bld) 0.9 % 0.0 - 0.9 % [facility] Comment on above: Immature Granulocyte Count (IG) includes promyelocytes, myelocytes and metamyelocytes but does not include bands. Percent differential counts (%) should be interpreted in the context of the absolute cell counts (cells/UL). Interpretation and review of laboratory results Abnormal [facility] Lymphocytes (Bld) [#/Vol] 1.77 10*3/uL [facility] Lymphocytes/100 WBC (Bld) 20.3 % 13.0 - 44.0 % [facility] MCH (RBC) [Entitic mass] 29.2 pg 26.0 - 34.0 pg [facility] MCHC (RBC) [Mass/Vol] 31.5 g/dL Low 32.0 - 36.0 g/dL [facility] MCV (RBC) [Entitic vol] 93 fL 80 - 100 fL [facility] Monocytes (Bld) [#/Vol] 0.81 10*3/uL High [facility] Monocytes/100 WBC (Bld) 9.3 % 2.0 - 10.0 % [facility] Neutrophils (Bld) [#/Vol] 5.7 10*3/uL High [facility] Comment on above: Percent differential counts (%) should be interpreted in the context of the absolute cell counts (cells/uL). Neutrophils/100 WBC (Bld) 65.2 % 40.0 - 80.0 % [facility] Nucleated RBC/100 WBC (Bld) [Ratio] 0 % [facility] Platelets (Bld) [#/Vol] 309 10*3/uL [facility] RBC (Bld) [#/Vol] 3.39 10*6/uL Low [facility] WBC (Bld) [#/Vol] 8.7 10*3/uL [facility] Basophils (Bld) [#/Vol] 0.06 x10*3/uL Normal 0.00-0.10 [facility] Comment on above: Performed By: #### 5 7021-8 #### CURTIS SCHREIBER ([id number]) [facility] ([facility]) [address] [place] [address] 113[address] Basophils/100 WBC (Bld) 0.7 % Normal 0.0-2.0 U [facility] Comment on above: Performed By: #### 5 7021-8 #### CURTIS SCHREIBER ([id number]) [facility] ([facility]) [facility] [place] [address] Eosinophils (Bld) [#/Vol] 0.31 x10*3/uL Normal 0.00-0.40 [facility] Comment on above: Performed By: #### 5 7021-8 #### CURTIS SCHREIBER ([id number]) [facility] ([facility]) [facility] [place] [address] Eosinophils/100 WBC (Bld) 3.6 % Normal 0.0-6.0 [facility] Comment on above: Performed By: #### 5 7021-8 #### CURTIS SCHREIBER ([id number]) [facility] ([facility]) [address] [place] [address] Erythrocyte distribution width (RBC) [Ratio] 13.9 % Normal 11.5-14.5 [facility] Comment on above: Performed By: #### 5 7021-8 #### CURTIS SCHREIBER ([id number]) [facility] ([facility]) [address] [place] [address] Hematocrit (Bld) [Volume fraction] 31.4 % Low 36.0-46.0 [facility] Comment on above: Performed By: #### 5 7021-8 #### CURTIS SCHREIBER ([id number]) [facility] ([facility]) [address] [place] [address] Hemoglobin (Bld) [Mass/Vol] 9.9 g/dL Low 12.0-16.0 [facility] Comment on above: Performed By: #### 5 7021-8 #### CURTIS SCHREIBER ([id number]) [facility] ([facility]) [address] [place] [address] Immature granulocytes (Bld) [#/Vol] 0.08 x10*3/uL Normal 0.00-0.50 [facility] Comment on above: Performed By: #### 5 7021-8 #### CURTIS SCHREIBER ([id number]) [facility] ([facility]) [address] [place] [id number] Immature granulocytes/100 WBC (Bld) 0.9 % Normal 0.0-0.9 [facility] Comment on above: Result Comment: Breana ture Granulocyte Count (IG) includes promyelocytes, myelocytes and metamyelocytes but does not include bands. Percent differential counts (%) should be interpreted in the context of the absolute cell counts (cells/UL). Performed By: #### 5 7021-8 #### CURTIS SCHREIBER ([id number]) [facility] ([facility]) [address] [place], [place] [address] 58891 Lymphocytes (Bld) [#/Vol] 1.77 x10*3/uL Normal 0.80-3.00 [facility] Comment on above: Performed By: #### 5 7021-8 #### CURTIS SCHREIBER ([id number]) [facility] ([facility]) [address] [place] [address] 34989 Lymphocytes/100 WBC (Bld) 20.3 % Normal 13.0-44.0 [facility] Comment on above: Performed By: #### 5 7021-8 #### CURTIS SCHREIBER ([id number]) [facility] ([facility]) [address] [place] [address] 95657 MCH (RBC) [Entitic mass] 29.2 pg Normal 26.0-34.0 [facility] Comment on above: Performed By: #### 5 7021-8 #### CURTIS SCHREIBER ([id number]) [facility] ([facility]) [address] [place] [address] 28259 MCHC (RBC) [Mass/Vol] 31.5 g/dL Low 32.0-36.0 [facility] Comment on above: Performed By: #### 5 7021-8 #### CURTIS SCHREIBER ([id number]) [facility] ([facility]) [address] [place] [address] 04380 MCV (RBC) [Entitic vol] 93 fL Normal 80-100 [facility] Comment on above: Performed By: #### 5 7021-8 #### CURTIS SCHREIBER ([id number]) [facility] ([facility]) [address] [place] [address] 99303 Monocytes (Bld) [#/Vol] 0.81 x10*3/uL High 0.05-0.80 [facility] Comment on above: Performed By: #### 5 7021-8 #### CURTIS SCHREIBER ([id number]) [facility] ([facility]) [address] [place] [address] 06283 Monocytes/100 WBC (Bld) 9.3 % Normal 2.0-10.0 [facility] Comment on above: Performed By: #### 5 7021-8 #### CURTIS SCHREIBER ([id number]) [facility] ([facility]) [address] [place] [address] 46589 Neutrophils (Bld) [#/Vol] 5.70 x10*3/uL High 1.60-5.50 [facility] Comment on above: Result Comment: Perc ent differential counts (%) should be interpreted in the context of the absolute cell counts (cells/uL). Performed By: #### 5 7021-8 #### CURTIS SCHREIBER ([id number]) [facility] ([facility]) [address] [place] [address] 58154 Neutrophils/100 WBC (Bld) 65.2 % Normal 40.0-80.0 [facility] Comment on above: Performed By: #### 5 7021-8 #### CURTIS SCHREIBER ([id number]) [facility] ([facility]) [address] [place] [address] 36902 Nucleated RBC/100 WBC (Bld) [Ratio] 0.0 /100 WBCs Normal 0.0-0.0 [facility] Comment on above: Performed By: #### 5 7021-8 #### CURTIS SCHREIBER ([id number]) [facility] ([facility]) [address] [place] [address] 91439 Platelets (Bld) [#/Vol] 309 x10*3/uL Normal 150-450 [facility] Comment on above: Performed By: #### 5 7021-8 #### CURTIS SCHREIBER ([id number]) [facility] ([facility]) [address] [place] [address] 40716 RBC (Bld) [#/Vol] 3.39 x10*6/uL Low 4.00-5.20 [facility] Comment on above: Performed By: #### 5 7021-8 #### CURTIS SCHREIBER ([id number]) [facility] ([facility]) [address] [place] [address] 50375 WBC (Bld) [#/Vol] 8.7 x10*3/uL Normal 4.4-11.3 [facility] Comment on above: Performed By: #### 5 7021-8 #### CURTIS SCHREIBER ([id number]) [facility] ([facility]) [address] [place] [address] CBC panel Auto (Bld)on 10-12 Erythrocyte distribution width (RBC) [Ratio] 13.7 % Normal 11.5-14.5 [facility] Comment on above: Performed By: #### 5 8410-2 #### CURTIS SCHREIBER ([id number]) [facility] ([facility]) [address] [place] [address] Hematocrit (Bld) [Volume fraction] 34.2 % Low 36.0-46.0 [facility] Comment on above: Performed By: #### 5 8410-2 #### CURTIS SCHREIBER ([id number]) [facility] ([facility]) [address] [place] [address] Hemoglobin (Bld) [Mass/Vol] 10.6 g/dL Low 12.0-16.0 [facility] Comment on above: Performed By: #### 5 8410-2 #### CURTIS SCHREIBER ([id number]) [facility] ([facility]) [address] [place] [address] MCH (RBC) [Entitic mass] 28.6 pg Normal 26.0-34.0 [facility] Comment on above: Performed By: #### 5 8410-2 #### CURTIS SCHREIBER ([id number]) [facility] ([facility]) [address] [place] [address] MCHC (RBC) [Mass/Vol] 31.0 g/dL Low 32.0-36.0 [facility] Comment on above: Performed By: #### 5 8410-2 #### CURTIS SCHREIBER ([id number]) [facility] ([facility]) [address] [place] [address] MCV (RBC) [Entitic vol] 92 fL Normal 80-100 U [facility] Comment on above: Performed By: #### 5 8410-2 #### CURTIS SCHREIBER ([id number]) [facility] ([facility]) [address] [place] [address] 21489 Nucleated RBC/100 WBC (Bld) [Ratio] 0.0 /100 WBCs Normal 0.0-0.0 [facility] Comment on above: Performed By: #### 5 8410-2 #### CURTIS SCHREIBER ([id number]) [facility] ([facility]) [address] [place] [address] 85124 Platelets (Bld) [#/Vol] 335 x10*3/uL Normal 150-450 [facility] Comment on above: Performed By: #### 5 8410-2 #### CURTIS SCHREIBER ([id number]) [facility] ([facility]) [address] [place] [address] RBC (Bld) [#/Vol] 3.70 x10*6/uL Low 4.00-5.20 [facility] Comment on above: Performed By: #### 5 8410-2 #### CURTIS SCHREIBER ([id number]) [facility] ([facility]) [address] [place], [place] [address] WBC (Bld) [#/Vol] 8.0 x10*3/uL Normal 4.4-11.3 [facility] Comment on above: Performed By: #### 5 8410-2 #### CURTIS SCHREIBER ([id number]) [facility] ([facility]) [address] [place] [address] Comprehensive metabolic 2000 panelon 10-12-2024 Albumin BCP dye [Mass/Vol] 3.7 g/dL Normal 3.4-5.0 [facility] Comment on above: Performed By: #### 2 4323-8 #### CURTIS SCHREIBER ([id number]) [facility] ([facility]) [address] [place], [place] [id number] ALP [Catalytic activity/Vol] 81 U/L Normal 33-136 [facility] Comment on above: Performed By: #### 2 4323-8 #### CURTIS SCHREIBER ([id number]) [facility] ([facility]) [address] [place] [address] ALT With P-5'-P [Catalytic activity/Vol] 12 U/L Normal 7-45 [facility] Comment on above: Result Comment: Bobbi ents treated with Sulfasalazine may generate falsely decreased results for ALT. Performed By: #### 2 4323-8 #### CURTIS SCHREIBER ([id number]) [facility] ([facility]) [address] [place] [address] Anion gap [Moles/Vol] 14 mmol/L Normal 10-20 [facility] Comment on above: Performed By: #### 2 432-8 #### CURTIS SCHREIBER ([id number]) [facility] ([facility]) [address] [place] [address] AST With P-5'-P [Catalytic activity/Vol] 15 U/L Normal 9-39 [facility] Comment on above: Performed By: #### 2 432-8 #### CURTIS SCHREIBER ([id number]) [facility] ([facility]) [address] [place] [address] Bilirubin [Mass/Vol] 0.5 mg/dL Normal 0.0-1.2 [facility] Comment on above: Performed By: #### 2 432-8 #### CURTIS SCHREIBER ([id number]) [facility] ([facility]) [address] [place] [address] Calcium [Mass/Vol] 8.1 mg/dL Low 8.6-10.3 [facility] Comment on above: Performed By: #### 2 4323-8 #### CURTIS SCHREIBER ([id number]) [facility] ([facility]) [address] [place] [address] Chloride [Moles/Vol] 98 mmol/L Normal 98-107 [facility] Comment on above: Performed By: #### 2 4323-8 #### CURTIS SCHREIBER ([id number]) [facility] ([facility]) [address] [place] [address] CO2 [Moles/Vol] 24 mmol/L Normal 21-32 [facility] Comment on above: Performed By: #### 2 4323-8 #### CURTIS SCHREIBER ([id number]) [facility] ([facility]) [facility] [place] [address] Creatinine [Mass/Vol] 1.52 mg/dL High 0.50-1.05 [facility] Comment on above: Performed By: #### 2 432-8 #### CURTIS SCHREIBER ([id number]) [facility] ([facility]) [address] [place] [address] 96736 Glomerular filtration rate/1.73 sq M.predicted 33 mL/min/1.73m*2 Low >60 [facility] Comment on above: Result Comment: Calc ulations of estimated GFR are performed using the 2020 CKD-EPI Study Refit equation without the race variable for the IDMS-Traceable creatinine methods. https://jasn.asnjournals.org/content/early//ASN.2020 601168 Performed By: #### 2 432-8 #### CURTIS SCHREIBER ([id number]) [facility] ([facility]) [address] [place] [address] 38302 Glucose [Mass/Vol] 128 mg/dL High 74-99 [facility] Comment on above: Performed By: #### 2 432-8 #### CURTIS SCHREIBER ([id number]) [facility] ([facility]) [address] [place] [address] 87454 Potassium [Moles/Vol] 4.8 mmol/L Normal 3.5-5.3 [facility] Comment on above: Performed By: #### 2 4323-8 #### CURTIS SCHREIBER ([id number]) [facility] ([facility]) [address] [place] [address] 74545 Protein [Mass/Vol] 6.4 g/dL Normal 6.4-8.2 [facility] Comment on above: Performed By: #### 2 4323-8 #### CURTIS SCHREIBER ([id number]) [facility] ([facility]) [address] [place] [address] 78002 Sodium [Moles/Vol] 131 mmol/L Low 136-145 [facility] Comment on above: Performed By: #### 2 4323-8 #### CURTIS SCHREIBER ([id number]) [facility] ([facility]) [address] [place] [address] Urea nitrogen [Mass/Vol] 59 mg/dL High 6-23 [facility] Comment on above: Performed By: #### 2 4323-8 #### CURTIS SCHREIBER ([id number]) [facility] ([facility]) [address] [place] [address] Albumin BCP dye [Mass/Vol] 3.9 g/dL Normal 3.4-5.0 [facility] Comment on above: Performed By: #### 2 432-8 #### CURTIS SCHREIBER ([id number]) [facility] ([facility]) [address] [place] [address] ALP [Catalytic activity/Vol] 84 U/L Normal 33-136 [facility] Comment on above: Performed By: #### 2 432-8 #### CURTIS SCHREIBER ([id number]) [facility] ([facility]) [address] [place] [address] ALT With P-5'-P [Catalytic activity/Vol] 13 U/L Normal 7-45 [facility] Comment on above: Result Comment: Bobbi ents treated with Sulfasalazine may generate falsely decreased results for ALT. Performed By: #### 2 4323-8 #### CURTIS SCHREIBER ([id number]) [facility] ([facility]) [address] [place] [address] Anion gap [Moles/Vol] 15 mmol/L Normal 10-20 [facility] Comment on above: Performed By: #### 2 4323-8 #### UCRTIS SCHREIBER ([id number]) [facility] ([facility]) [address] [place] [address] AST With P-5'-P [Catalytic activity/Vol] 20 U/L Normal 9-39 [facility] Comment on above: Performed By: #### 2 4323-8 #### CURTIS SCHREIBER ([id number]) [facility] ([facility]) [address] [place] [address] Bilirubin [Mass/Vol] 0.5 mg/dL Normal 0.0-1.2 [facility] Comment on above: Performed By: #### 2 4323-8 #### CURTIS SCHREIBER ([id number]) [facility] ([facility]) [address] [place] [address] Calcium [Mass/Vol] 8.2 mg/dL Low 8.6-10.3 [facility] Comment on above: Performed By: #### 2 4323-8 #### CURTIS SCHREIBER ([id number]) [facility] ([facility]) [address] [place] [address] Chloride [Moles/Vol] 99 mmol/L Normal 98-107 [facility] Comment on above: Performed By: #### 2 4323-8 #### CURTIS SCHREIBER ([id number]) [facility] ([facility]) [address] [place] [address] CO2 [Moles/Vol] 24 mmol/L Normal 21-32 [facility] Comment on above: Performed By: #### 2 4323-8 #### CURTIS SCHREIBER ([id number]) [facility] ([facility]) [address] [place] [address] Creatinine [Mass/Vol] 0.91 mg/dL Normal 0.50-1.05 [facility] Comment on above: Performed By: #### 2 4323-8 #### CURTIS SCHREIBER ([id number]) [facility] ([facility]) [facility] [place] [address] Glomerular filtration rate/1.73 sq M.predicted 61 mL/min/1.73m*2 Normal >60 [facility] Comment on above: Result Comment: Calc ulations of estimated GFR are performed using the 2020 CKD-EPI Study Refit equation without the race variable for the IDMS-Traceable creatinine methods. https://jasn.asnjournals.org/content/early//ASN.2020 332604 Performed By: #### 2 4323-8 #### CURTIS SCHREIBER ([id number]) [facility] ([facility]) [address] [place] [address] 81741 Glucose [Mass/Vol] 102 mg/dL High 74-99 [facility] Comment on above: Performed By: #### 2 4323-8 #### CURTIS SCHREIBER ([id number]) [facility] ([facility]) [address] [place] [address] 10014 Potassium [Moles/Vol] 4.8 mmol/L Normal 3.5-5.3 [facility] Comment on above: Performed By: #### 2 4323-8 #### CURTIS SCHREIBER ([id number]) [facility] ([facility]) [address] [place] [address] 28350 Protein [Mass/Vol] 6.3 g/dL Low 6.4-8.2 [facility] Comment on above: Performed By: #### 2 4323-8 #### CURTIS SCHREIBER ([id number]) [facility] ([facility]) [address] [place] [address] 62581 Sodium [Moles/Vol] 133 mmol/L Low 136-145 [facility] Comment on above: Performed By: #### 2 4323-8 #### CURTIS SCHREIBER ([id number]) [facility] ([facility]) [address] [place] [address] 40830 Urea nitrogen [Mass/Vol] 41 mg/dL High 6-23 [facility] Comment on above: Performed By: #### 2 4323-8 #### CURTIS SCHREIBER ([id number]) [facility] ([facility]) [address] [place] [address] 65352 ECG 12-LEADon 10-12-2024 ECG 12-LEAD Ventricular Rate 91 Atrial Rate 91 P-R Interval 178 QRS Duration 122 Q-T Interval 378 QTC Calculation(Bazett) 464 P [place] 51 R [place] -27 T [place] 38 QRS Count 14 Q Onset 221 [...] Garza ([id number]) on 10/13/2024 6:20:48 PM Normal [facility] Natriuretic peptide B [Mass/ Vol]on 10-12-2024 Natriuretic peptide B (Bld) [Mass/Vol] 48 pg/mL Normal 0-99 [facility] Comment on above: Order Comment: <100 pg/mL - Heart failure unlikely 100-299 pg/mL - Intermediate probability of acute heart failure exacerbation. Correlate with clinical context and patient history. >=300 pg/mL - Heart Failure likely. Correlate with clinical context and patient history. BNP testing is performed using different testing methodology at [facility] than at other [facility]. Direct result comparisons should only be made within the same method. Performed By: #### 3 0934-4 #### CURTIS SCHREIBER ([id number]) [facility] ([facility]) [address] [place] [address] No Panel Informationon 10-12 Interpretation and review of laboratory results Abnormal [facility] Thyrotropinon 10-12-2024 TSH Qn 0.61 m[IU]/L Normal 0.44-3.98 [facility] Comment on above: Order Comment: TSH t esting is performed using different testing methodology at [facility] than at other [facility]. Direct result comparisons should only be made within the same method. Performed By: #### 3 016-3 #### CURTIS SCRHEIBER ([id number]) [facility] ([facility]) [address] [place] [address] Triacylglycerol lipaseon Lipase [Catalytic activity/Vol] 48 U/L Normal 9-82 [facility] Comment on above: Order Comment: Venip uncture immediately after or during the administration of Metamizole may lead to falsely low results. Testing should be performed immediately prior to Metamizole dosing. Performed By: #### 3 040-3 #### CURTIS SCHREIBER ([id number]) [facility] ([facility]) [address] [place] [address] Urinalysis complete W Reflex Culture panel (U)on 10-12-2024 Appearance (U) Turbid Abnormal Clear [facility] Bilirubin (U) [Mass/Vol] Negative NEGATIVE mg/dL [facility] Color (U) Light-Yellow Light-Yellow , Yellow, Dark-Yellow [facility] Glucose Auto test strip (U) [Mass/Vol] Normal Normal mg/dL [facility] Ketones (U) [Mass/Vol] Negative NEGAT HEMANT mg/dL [facility] Leukocyte esterase Auto test strip Ql (U) 500 Bryan/uL Abnormal NEGATIVE [facility] Nitrite Auto test strip Ql (U) Negative NEGATIVE [facility] pH (U) 5.5 [pH] 5.0, 5.5, 6.0, 6.5, 7.0, 7.5, 8.0 [facility] Protein (U) [Mass/Vol] 30 (1+) Abnormal NEGAT HEMANT, 10 (TRACE), 20 (TRACE) mg/dL [facility] RBC (U) [#/Vol] Negative NEGATIVE mg/dL [facility] Specific gravity (U) [Rel density] 1.019 1.005 - 1.035 [facility] Urobilinogen (U) [Mass/Vol] Normal Normal mg/dL [facility] Appearance (U) Turbid Normal Clear [facility] Comment on above: Performed By: #### 5 8077-9 #### CURTIS SCHREIBER ([id number]) [facility] ([facility]) [address] [place] [address] Bilirubin (U) [Mass/Vol] Negative Normal NEGATIVE [facility] Comment on above: Performed By: #### 5 8077-9 #### CURTIS SCHREIBER ([id number]) [facility] ([facility]) [address] [place] [address] Color (U) Light-Yellow Normal Light-Yellow , Yellow, Dark-Yellow [facility] Comment on above: Performed By: #### 5 8077-9 #### CURTIS SCHREIBER ([id number]) [facility] ([facility]) [address] [place] [address] 71243 Glucose Auto test strip (U) [Mass/Vol] Normal Normal Normal [facility] Comment on above: Performed By: #### 5 8077-9 #### CURTIS SCHREIBER ([id number]) [facility] ([facility]) [address] [place] [address] 10401 Ketones (U) [Mass/Vol] Negative Normal NEGATIVE [facility]: Performed By: #### 5 8077-9 #### CURTIS SCHREIBER ([id number]) [facility] ([facility]) [address] [place] [address] 62946 Leukocyte esterase Auto test strip Ql (U) 500 Bryan/uL Abnormal NEGATIVE [facility] Comment on above: Performed By: #### 5 8077-9 #### CURTIS SCHREIBER ([id number]) [facility] ([facility]) [address] [place], [place] [address] Nitrite Auto test strip Ql (U) Negative Normal NEGATIVE [facility] Comment on above: Performed By: #### 5 8077-9 #### CURTIS SCHREIBER ([id number]) [facility] ([facility]) [address] [place] [address] 75445 pH (U) 5.5 [pH] Normal 5.0, 5.5, 6.0, 6.5, 7.0, 7.5, 8.0 [facility] Comment on above: Performed By: #### 5 8077-9 #### CURTIS SCHREIBER ([id number]) [facility] ([facility]) [address] [place] [address] 59025 Protein (U) [Mass/Vol] 30 (1+) Abnormal NEGAT HEMANT, 10 (TRACE), 20 (TRACE) [facility] Comment on above: Performed By: #### 5 8077-9 #### CURTIS SCHREIBER ([id number]) [facility] ([facility]) [address] [place] [address] 98596 RBC (U) [#/Vol] Negative Normal NEGATIVE [facility] Comment on above: Performed By: #### 5 8077-9 #### CURTIS SCHREIBER ([id number]) [facility] ([facility]) [address] [place] [address] Specific gravity (U) [Rel density] 1.019 Normal 1.005-1.035 [facility] Comment on above: Performed By: #### 5 8077-9 #### CURTIS SCHREIBER ([id number]) [facility] ([facility]) [address] [place] [address] Urobilinogen (U) [Mass/Vol] Normal Normal Normal [facility] Comment on above: Performed By: #### 5 8077-9 #### CURTIS SCHREIBER ([id number]) [facility] ([facility]) [address] [place] [address] Urinalysis microscopic panel Auto Ql (U)on 10-12-2024 Epithelial cells.squamous Auto (Urine sed) [#/Area] 10-25 (FEW) Reference range not established. /HPF [facility] Hyaline casts Auto (Urine sed) [#/Area] 1+ Abnormal NONE /LPF [facility] Mucus Auto (Urine sed) [#/Area] FEW Reference range not established. /LPF [facility] RBC Auto (Urine sed) [#/Area] 3-5 NONE, 1-2, 3-5 /HPF [facility] Transitional cells Computer assisted (U) [#/Area] 1-2 (FEW) Reference range not established. /HPF [facility] WBC Auto (Urine sed) [#/Area] 21-50 Abnormal 1-5, NONE /HPF [facility] Yeast.budding Computer assisted (U) [#/Area] PRESENT Abnormal NONE /HPF [facility] Epithelial cells.squamous Auto (Urine sed) [#/Area] 10-25 (FEW) Normal Reference range not established. [facility] Comment on above: Performed By: #### 5 3315-8 #### CURTIS SCHREIBER ([id number]) [facility] ([facility]) [address] [place] [address] Hyaline casts Auto (Urine sed) [#/Area] 1+ /LPF Abnormal NONE [facility] Comment on above: Performed By: #### 5 3315-8 #### CURTIS SCHREIBER ([id number]) [facility] ([facility]) [address] [place] [address] Mucus Auto (Urine sed) [#/Area] FEW Normal Reference range not established. [facility] Comment on above: Performed By: #### 5 3315-8 #### CURTIS SCHREIBER ([id number]) [facility] ([facility]) [address] [place] [address] RBC Auto (Urine sed) [#/Area] 3-5 Normal NONE, 1-2, 3-5 [facility] Comment on above: Performed By: #### 5 3315-8 #### CURTIS SCHREIBER ([id number]) [facility] ([facility]) [address] [place] [address] Transitional cells Computer assisted (U) [#/Area] 1-2 (FEW) Normal Reference range not established. [facility] Comment on above: Performed By: #### 5 3315-8 #### CURTIS SCHREIBER ([id number]) [facility] ([facility]) [address] [place] [address] WBC Auto (Urine sed) [#/Area] 21-50 Abnormal 1-5, NONE [facility] Comment on above: Performed By: #### 5 3315-8 #### CURTIS SCHREIBER ([id number]) [facility] ([facility]) [address] [place] [address] Yeast.budding Computer assisted (U) [#/Area] PRESENT Abnormal NONE [facility] Comment on above: Performed By: #### 5 3315-8 #### CURTIS SCHREIBER ([id number]) [facility] ([facility]) [address] [place] [address] XR CHEST 1 VIEWon 10-12-2024 XR CHEST 1 VIEW Interpreted By: Erin Garrett, STUDY: XR CHEST 1 VIEW; 10/12/2024 11:40 pm INDICATION: Signs/Symptoms:dyspn ea. COMPARISON: None. ACCESSION NUMBER(S): [id number] ORDERING CLINICIAN: NICHOLE GUERRA FINDINGS: CARDIOMEDIASTINAL SILHOUETTE: [...] Erin Garrett 10/13/2024 12:00 AM Dictation workstation: [id number] [facility] XR Chest Single viewon 10-12 Radiology Study observation (narrative) [facility] Work Phone: Basic Metabolic Profile (BMP )on 10-10-2024 BUN Normal 4-19 [facility] Comment on above: Result Comment: Canc elled via OM: Order cancelled - Patient discharged Performed By: #### L 500.2500 ####[facility] [address] [facility] [address] BUN/CRE Normal 10-20 [facility] Comment on above: Result Comment: Canc elled via OM: Order cancelled - Patient discharged Performed By: #### L 500.2500 ####[facility] [address] [facility] [address] Calcium Normal 7.6-11.0 [facility] Comment on above: Result Comment: Canc elled via OM: Order cancelled - Patient discharged Performed By: #### L 500.2500 ####[facility] [address] [facility] [address] CL Normal 98-108 [facility] Comment on above: Result Comment: Canc elled via OM: Order cancelled - Patient discharged Performed By: #### L 500.2500 ####[facility] [address] [place], [address] CO2 Normal 21.0-32.0 [facility] Comment on above: Result Comment: Canc elled via OM: Order cancelled - Patient discharged Performed By: #### L 500.2500 ####[facility] [address] [place], [address] CREAT,SERUM Normal 0.70-1.20 [facility] Comment on above: Result Comment: Canc elled via OM: Order cancelled - Patient discharged Performed By: #### L 500.2500 ####[facility] [address] [place], [address] eGFR Normal >60 [facility] Comment on above: Result Comment: Canc elled via OM: Order cancelled - Patient discharged Performed By: #### L 500.2500 ####[facility] [address] [place], [address] GAP Normal 5-15 [facility] Comment on above: Result Comment: Canc elled via OM: Order cancelled - Patient discharged Performed By: #### L 500.2500 ####[facility] [address] [place], [address] GLU Normal 70-99 [facility] Comment on above: Result Comment: Canc elled via OM: Order cancelled - Patient discharged Performed By: #### L 500.2500 ####[facility] [address] [place], [address] Potassium Normal 3.3-5.1 [facility] Comment on above: Result Comment: Canc elled via OM: Order cancelled - Patient discharged Performed By: #### L 500.2500 ####[facility] [address] [place], [address] Basic Metabolic Profile (BMP) Normal 133-145 [facility] Comment on above: Result Comment: Canc elled via OM: Order cancelled - Patient discharged Performed By: #### L 500.2500 ####[facility] [address] [place], [address] CBC-Complete Blood Cnt No Di ffon 10-10-2024 HCT Normal 37-47 [facility] Comment on above: Result Comment: Canc elled via OM: Order cancelled - Patient discharged Performed By: #### L 100.0500 ####[facility] [address] [place], [address] HGB Normal 12.0-15.0 [facility] Comment on above: Result Comment: Canc elled via OM: Order cancelled - Patient discharged Performed By: #### L 100.0500 ####[facility] [address] [place], [address] MCH Normal 27.0-32.0 [facility] Comment on above: Result Comment: Canc elled via OM: Order cancelled - Patient discharged Performed By: #### L 100.0500 ####[facility] [address] [place], [address] MCHC Normal 32-36 [facility] Comment on above: Result Comment: Canc elled via OM: Order cancelled - Patient discharged Performed By: #### L 100.0500 ####[facility] [address] [place], [address] MCV Normal 81-99 [facility] Comment on above: Result Comment: Canc elled via OM: Order cancelled - Patient discharged Performed By: #### L 100.0500 ####[facility] [address] [place], [address] PLT Normal 150-450 [facility] Comment on above: Result Comment: Canc elled via OM: Order cancelled - Patient discharged Performed By: #### L 100.0500 ####[facility] [address] [place], [address] RBC Normal 4.2-5.4 [facility] Comment on above: Result Comment: Canc elled via OM: Order cancelled - Patient discharged Performed By: #### L 100.0500 ####[facility] [address] [place], [address] RDW CV Normal 11.6-14.6 [facility] Comment on above: Result Comment: Canc elled via OM: Order cancelled - Patient discharged Performed By: #### L 100.0500 ####[facility] [address] [place], [address] RDW SD Normal 35.1-43.9 [facility] Comment on above: Result Comment: Canc elled via OM: Order cancelled - Patient discharged Performed By: #### L 100.0500 ####[facility] [address] [place], [address] WBC Normal 4.4-11.0 [facility] Comment on above: Result Comment: Canc elled via OM: Order cancelled - Patient discharged Performed By: #### L 100.0500 ####[facility] [address] [place], [address] COVID 19 AG RAPID (ALBERT Flowers)on 10-09-2024 SARS-CoV-2 (COVID-19) RNA RHYS+probe Ql (Unsp spec) Normal [facility] Comment on above: Performed By: #### M 100.505 ####[facility] [address] [place], [address] COVID-19 virus antigen assay Ordered By: Santino Haas on 10-09-2024 SARS-CoV-2 (COVID-19) Ag IA.rapid Ql (Resp) [facility] Anion gap in Serum or Plasma Ordered By: Santino Haas on 10-08-2024 Anion gap [Moles/Vol] 13 mmol/L 5-15 [facility] BUN/creatinine ratioOrdered By: Santino Haas on 10-08-2024 Urea nitrogen/Creatinine [Mass ratio] 23.6 mg/mg High 10-20 [facility] Basic Metabolic Profile (BMP )on 10-08-2024 BUN/CRE 23.6 RATIO High 10-20 [facility] Comment on above: Performed By: #### L 500.2500 ####[facility] [address] [place], [address] Calcium [Mass/Vol] 8.3 mg/dL Normal 7.6-11.0 [facility] Comment on above: Performed By: #### L 500.2500 ####[facility] [address] [place], [address] Chloride [Moles/Vol] 99 mmol/L Normal 98-108 [facility] Comment on above: Performed By: #### L 500.2500 ####[facility] [address] [place], [address] CO2 [Moles/Vol] 21.3 mmol/L Normal 21.0-32.0 [facility] Comment on above: Performed By: #### L 500.2500 ####[facility] [address] [place], [address] Creatinine [Mass/Vol] 0.86 mg/dL Normal 0.70-1.20 [facility] Comment on above: Performed By: #### L 500.2500 ####[facility] [address] [place], [address] ECRCL 39.07 ml/min Low 50-250 [facility] Comment on above: Performed By: #### L 500.2500 ####[facility] [address] [place], [address] GAP 13 Normal 5-15 [facility] Comment on above: Performed By: #### L 500.2500 ####[facility] [address] [place], [address] GFR/1.73 sq M.predicted among non-blacks MDRD (S/P/Bld) [Vol rate/Area] 65 mL/min/{1.73_m2} Normal >60 [facility] Comment on above: Result Comment: mL/m in/1.73m2 CKD-EPI Creatinine Equation (2020) Performed By: #### L 500.2500 ####[facility] [address] [place], [address] Glucose [Mass/Vol] 120 mg/dL High 70-99 [facility] Comment on above: Performed By: #### L 500.2500 ####[facility] [address] [place], [address] Potassium [Moles/Vol] 4.7 mmol/L Normal 3.3-5.1 [facility] Comment on above: Performed By: #### L 500.2500 ####[facility] [address] [place], [address] Sodium [Moles/Vol] 132 mmol/L Low 133-145 [facility] Comment on above: Performed By: #### L 500.2500 ####[facility] [address] [place], [address] Urea nitrogen [Mass/Vol] 20 mg/dL High 4-19 [facility] Comment on above: Performed By: #### L 500.2500 ####[facility] [address] [place], [address] CBC-Complete Blood Cnt No Di ffon 10-08-2024 Erythrocyte distribution width (RBC) [Ratio] 13.4 % Normal 11.6-14.6 [facility] Comment on above: Performed By: #### L 100.0500 ####[facility] [address] [place], [address] Hematocrit (Bld) [Volume fraction] 35.4 % Low 37-47 [facility] Comment on above: Performed By: #### L 100.0500 ####[facility] [address] [place], [address] Hemoglobin (Bld) [Mass/Vol] 11.3 g/dL Low 12.0-15.0 [facility] Comment on above: Performed By: #### L 100.0500 ####[facility] [address] [place], [address] MCH (RBC) [Entitic mass] 28.8 pg Normal 27.0-32.0 [facility] Comment on above: Performed By: #### L 100.0500 ####[facility] [address] [place], [address] MCHC (RBC) [Mass/Vol] 31.9 g/dL Low 32-36 [facility] Comment on above: Performed By: #### L 100.0500 ####[facility] [address] [place], [address] MCV (RBC) [Entitic vol] 90.1 fL Normal 81-99 [facility] Comment on above: Performed By: #### L 100.0500 ####[facility] [address] [place], [address] Platelet mean volume (Bld) [Entitic vol] 9.5 fL Normal 6.2-12.0 [facility] Comment on above: Performed By: #### L 100.0500 ####[facility] [address] [place], [address] Platelets (Bld) [#/Vol] 377 10*3/uL Normal 150-450 [facility] Comment on above: Performed By: #### L 100.0500 ####[facility] [address] [place], [address] RBC (Bld) [#/Vol] 3.93 10*6/uL Low 4.2-5.4 [facility] Comment on above: Performed By: #### L 100.0500 ####[facility] [address] [place], [address] RDW SD 44.8 fl High 35.1-43.9 [facility] Comment on above: Performed By: #### L 100.0500 ####[facility] [address] [place], [address] WBC (Bld) [#/Vol] 8.0 10*3/uL Normal 4.4-11.0 [facility] Comment on above: Performed By: #### L 100.0500 ####[facility] [address] [facility] [place], [address] Carbon dioxide, total [Moles /volume] in Central venous bloodOrdered By: Santino Haas on 10-08-2024 CO2 [Moles/Vol] 21.3 mmol/L 21.0-32.0 [facility] Chloride assayOrdered By: Charly Haas on 10-08-2024 Chloride [Moles/Vol] 99 mmol/L 98-108 [facility] Erythrocyte distribution wid th ratioOrdered By: Santino Haas on 10-08-2024 Erythrocyte distribution width (RBC) [Ratio] 13.4 % 11.6-14.6 [facility] Erythrocyte distribution wid th standard deviationOrdered By: Santino Haas on 10-08-2024 Erythrocyte distribution width (RBC) [Ratio] 44.8 fl High 35.1-43.9 [facility] Glomerular filtration rate ( GFR) estimation/1.73 sq m using serum, plasma, or whole bOrdered By: Santino Haas on 10-08-2024 GFR/1.73 sq M.predicted among non-blacks MDRD (S/P/Bld) [Vol rate/Area] 65 mL/min/{1.73_m2} >60 [facility] Hematocrit Auto (Bld) [Volum e fraction]Ordered By: Santino Haas on 10-08-2024 Hematocrit (Bld) [Volume fraction] 35.4 % Low 37-47 [facility] Hemoglobin measurementOrdere d By: Santino Haas on 10-08-2024 Hemoglobin (Bld) [Mass/Vol] 11.3 g/dL Low 12.0-15.0 [facility] MCV (mean corpuscular volume ) determinationOrdered By: Santino Haas on 10-08-2024 MCV (RBC) [Entitic vol] 90.1 fL 81-99 [facility] Mean corpuscular hemoglobin (MCH) determinationOrdered By: Santino Haas on 10-08-2024 MCH (RBC) [Entitic mass] 28.8 pg 27.0-32.0 [facility] Platelet countOrdered By: Charly Haas on 10-08-2024 Platelets (Bld) [#/Vol] 377 10*3/uL 150-450 [facility] Potassium measurement (mass/ volume)Ordered By: Santino Haas on 10-08-2024 Potassium (Unsp spec) [Mass/Vol] 4.7 mmol/L 3.3-5.1 [facility] RBC Auto (Bld) [#/Vol]Ordere d By: Santino Haas on 10-08-2024 RBC (Bld) [#/Vol] 3.93 10*6/uL Low 4.2-5.4 [facility] Serum creatinine measurement (mass/volume)Ordered By: Santino Haas on 10-08-2024 Creatinine [Mass/Vol] 0.86 mg/dL 0.70-1.20 [facility] Serum glucose measurement (m ass/volume)Ordered By: Santino Haas on 10-08-2024 Glucose [Mass/Vol] 120 mg/dL High 70-99 [facility] Serum or plasma calcium manuel urement (mass/volume)Ordered By: Santino Haas on 10-08-2024 Calcium [Mass/Vol] 8.3 mg/dL 7.6-11.0 [facility] Serum or plasma urea nitroge n measurement (mass/volume)Ordered By: Santino Haas on 10-08-2024 Urea nitrogen [Mass/Vol] 20 mg/dL High 4-19 [facility] Sodium levelOrdered By: Ken Haas on 10-08-2024 Sodium [Moles/Vol] 132 mmol/L Low 133-145 [facility] White blood cell (WBC) count Ordered By: Santino Haas on 10-08-2024 WBC (Bld) [#/Vol] 8.0 10*3/uL 4.4-11.0 [facility] Basic Metabolic Profile (BMP )on 10-06-2024 BUN/CRE 24.0 RATIO High 10-20 [facility] Comment on above: Performed By: #### L 500.2500 ####[facility] [address] [place], [address] Calcium [Mass/Vol] 7.9 mg/dL Normal 7.6-11.0 [facility] Comment on above: Performed By: #### L 500.2500 ####[facility] [address] [place], [address] Chloride [Moles/Vol] 98 mmol/L Normal 98-108 [facility] Comment on above: Performed By: #### L 500.2500 ####[facility] [address] [place], [address] CO2 [Moles/Vol] 24.8 mmol/L Normal 21.0-32.0 [facility] Comment on above: Performed By: #### L 500.2500 ####[facility] [address] [place], [address] Creatinine [Mass/Vol] 0.77 mg/dL Normal 0.70-1.20 [facility] Comment on above: Performed By: #### L 500.2500 ####[facility] [address] [place], [address] ECRCL 43.29 ml/min Low 50-250 [facility] Comment on above: Performed By: #### L 500.2500 ####[facility] [address] [place], [address] GAP 11 Normal 5-15 [facility] Comment on above: Performed By: #### L 500.2500 ####[facility] [address] [place], [address] GFR/1.73 sq M.predicted among non-blacks MDRD (S/P/Bld) [Vol rate/Area] 74 mL/min/{1.73_m2} Normal >60 [facility] Comment on above: Result Comment: mL/m in/1.73m2 CKD-EPI Creatinine Equation (2020) Performed By: #### L 500.2500 ####[facility] [address] [place], [address] Glucose [Mass/Vol] 98 mg/dL Normal 70-99 [facility] Comment on above: Performed By: #### L 500.2500 ####[facility] [address] [place], [address] Potassium [Moles/Vol] 3.9 mmol/L Normal 3.3-5.1 [facility] Comment on above: Performed By: #### L 500.2500 ####[facility] [address] [place], [address] Sodium [Moles/Vol] 134 mmol/L Normal 133-145 [facility] Comment on above: Performed By: #### L 500.2500 ####[facility] [address] [place], [address] Urea nitrogen [Mass/Vol] 18 mg/dL Normal 4-19 [facility] Comment on above: Performed By: #### L 500.2500 ####[facility] [address] [place], [address] CBC-Complete Blood Cnt No Di ffon 10-06-2024 Erythrocyte distribution width (RBC) [Ratio] 13.3 % Normal 11.6-14.6 [facility] Comment on above: Performed By: #### L 100.0500 ####[facility] [address] [place], [address] Hematocrit (Bld) [Volume fraction] 32.2 % Low 37-47 [facility] Comment on above: Performed By: #### L 100.0500 ####[facility] [address] [place], [address] Hemoglobin (Bld) [Mass/Vol] 10.2 g/dL Low 12.0-15.0 [facility] Comment on above: Performed By: #### L 100.0500 ####[facility] [address] [place], [address] MCH (RBC) [Entitic mass] 29.2 pg Normal 27.0-32.0 [facility] Comment on above: Performed By: #### L 100.0500 ####[facility] [address] [place], [address] MCHC (RBC) [Mass/Vol] 31.7 g/dL Low 32-36 [facility] Comment on above: Performed By: #### L 100.0500 ####[facility] [address] [place], [address] MCV (RBC) [Entitic vol] 92.3 fL Normal 81-99 [facility] Comment on above: Performed By: #### L 100.0500 ####[facility] [address] [place], [address] Platelet mean volume (Bld) [Entitic vol] 9.5 fL Normal 6.2-12.0 [facility] Comment on above: Performed By: #### L 100.0500 ####[facility] [address] [place], [address] Platelets (Bld) [#/Vol] 329 10*3/uL Normal 150-450 [facility] Comment on above: Performed By: #### L 100.0500 ####[facility] [address] [place], [address] RBC (Bld) [#/Vol] 3.49 10*6/uL Low 4.2-5.4 [facility] Comment on above: Performed By: #### L 100.0500 ####[facility] [address] [place], [place], [phone](179) RDW SD 45.1 fl High 35.1-43.9 [facility] Comment on above: Performed By: #### L 100.0500 ####[facility] [address] [place], [place], [phone]) WBC (Bld) [#/Vol] 7.6 10*3/uL Normal 4.4-11.0 [facility] Comment on above: Performed By: #### L 100.0500 ####[facility] [address] [place], [address] Calculated very low density lipoprotein (VLDL) cholesterol measurementOrdered By: Jaiden Worthington on 10-05-2024 Calculated very low density lipoprotein (VLDL) cholesterol measurement 16 mg/dL 5-40 [facility] LDL calc ser/plasOrdered By: Jaiden Worthington on 10-05-2024 Cholesterol in LDL [Mass/Vol] 49 mg/dL [facility] Lipid Profileon 10-05-2024 CHOL:HDL 1.60 Normal [facility] Comment on above: Performed By: #### L 500.4100 ####[facility] [address] [place], [place], [id number] Cholesterol [Mass/Vol] 173 mg/dL Normal <=200 [facility] Comment on above: Result Comment: Chol esterol level, Desirable <200 mg/dLBorderline high cholesterol 200-239 mg/dLHigh cholesterol >=240 mg/dLRecommendations of the NCEP Adult Treatment Panel for thefollowing risk-cutoff thresholds for the [place] Americanpulation. Performed By: #### L 500.4100 ####[facility] [address] [place], [place], [address] Cholesterol in HDL [Mass/Vol] 108 mg/dL Normal [facility] Comment on above: Result Comment: Arely onal Cholesterol Education Program (NCEP) guidelines:<40 mg/dL: Low HDL-cholesterol (major risk factor for CHD)>= 60 mg/dL: High HDL-cholesterol (negative risk factor forCHD)HDL-cholesterol is affected by a number of factors, e.g.smoking, exercise, hormones, sex and age. Performed By: #### L 500.4100 ####[facility] [address] [place], [address] Cholesterol in LDL [Mass/Vol] 49 mg/dL Normal [facility] Comment on above: Result Comment: Bord euknpl=551-361 mg/dL Higher Qcws=399 mg/dL or greater Performed By: #### L 500.4100 ####[facility] [address] [place], [address] Cholesterol in VLDL [Mass/Vol] 16 mg/dL Normal 5-40 [facility] Comment on above: Performed By: #### L 500.4100 ####[facility] [address] [place], [address] Triglyceride [Mass/Vol] 78 mg/dL Normal [facility] Comment on above: Result Comment: The drugs N-Acetylcysteine and Metamizole may falselydepress this assay.Normal range: <150 mg/dLBorderline High: 150-199 mg/dLHigh: 200-499 mg/dLVery High: >500 mg/dL Performed By: #### L 500.4100 ####[facility] [address] [place], [address] MR/CON.PCM.NEon 10-05-2024 MR/CON.PCM.NE Normal [facility] Serum or plasma cholesterol in HDL measurement (mass/volume)Ordered By: Jaiden Worthington on 10-05-2024 Cholesterol in HDL [Mass/Vol] 108 mg/dL >40 [facility] Serum or plasma cholesterol measurement (mass/volume)Ordered By: Jaiden Worthington on 10-05-2024 Cholesterol [Mass/Vol] 173 mg/dL <201 [facility] Urine Cultureon 10-05-2024 URC Organism is too fastidious for routine susceptibility studies. Urine Culture Urine Culture Aerococcus urinae [place] Count 80,000-100,000 Normal [facility] Comment on above: Performed By: #### M 100.2200 ####[facility] [address] [place], [place], [address] Absolute lymphocyte countOrd ered By: Juan José Thorpe on 10-04-2024 Lymphocytes Auto (Unsp spec) [#/Vol] 1.42 10*3/uL 0.83-4.51 [facility] Alcohol, Blood (Medical)-Ser umon 10-04-2024 SERUM ETOH < 10.1 Normal <=10.0 [facility] Comment on above: Result Comment: This test is for medical purposes only. The legaldefinition of intoxication varies according to local law. Performed By: #### L 501.5200, L501.9100 ####[facility] [address] [place], [place], [phone] Automated lymphocyte count a s percentage of total leukocytesOrdered By: Juan José Thorpe on 10-04-2024 Lymphocytes/100 WBC Auto (Unsp spec) 14.8 % Low 19-41 [facility] Basophil percentageOrdered B y: Juan José Thorpe on 10-04-2024 Basophils/100 WBC (Bld) 0.6 % Normal 0-1 [facility] Comment on above: Performed By: #### L 501.9520, L100.0100, L501.2300, L500.4050 ####[facility] [address] [place], [place], [address] Bilirubin, totalOrdered By: Juan José Thorpe on 10-04-2024 Bilirubin [Mass/Vol] 0.41 mg/dL 0.00-1.30 [facility] Brain without Contraston Brain without Contrast Normal [facility] CBC W/Diff, Automatedon 09-10 Absolute Lymph 1.42 X10 3/uL Normal 0.83-4.51 [facility] Comment on above: Performed By: #### L 501.9520, L100.0100, L501.2300, L500.4050 ####[facility] [address] [place], [address] Absolute Neut 6.8 X10 3/uL Normal 2.0-7.7 [facility] Comment on above: Performed By: #### L 501.9520, L100.0100, L501.2300, L500.4050 ####[facility] [address] [place], [address] Erythrocyte distribution width (RBC) [Ratio] 13.3 % Normal 11.6-14.6 [facility] Comment on above: Performed By: #### L 501.9520, L100.0100, L501.2300, L500.4050 ####[facility] [address] [place], [address] Hematocrit (Bld) [Volume fraction] 34.0 % Low 37-47 [facility] Comment on above: Performed By: #### L 501.9520, L100.0100, L501.2300, L500.4050 ####[facility] [address] [place], [address] Hemoglobin (Bld) [Mass/Vol] 10.8 g/dL Low 12.0-15.0 [facility] Comment on above: Performed By: #### L 501.9520, L100.0100, L501.2300, L500.4050 ####[facility] [address] [place], [address] IG% 0.600 Normal 0.0-0.9 [facility] Comment on above: Result Comment: IG% - Immature Granulocytes (promyelocytes, myelocytes andmetamyelocytes) > 1% indicates that a LEFT SHIFT is Present. Performed By: #### L 501.9520, L100.0100, L501.2300, L500.4050 ####[facility] [address] [place], [address] Lymphocytes/100 WBC (Bld) 14.8 % Low 19-41 [facility] Comment on above: Performed By: #### L 501.9520, L100.0100, L501.2300, L500.4050 ####[facility] [address] [place], [address] MCH (RBC) [Entitic mass] 29.0 pg Normal 27.0-32.0 [facility] Comment on above: Performed By: #### L 501.9520, L100.0100, L501.2300, L500.4050 ####[facility] [address] [place], [address] MCHC (RBC) [Mass/Vol] 31.8 g/dL Low 32-36 [facility] Comment on above: Performed By: #### L 501.9520, L100.0100, L501.2300, L500.4050 ####[facility] [address] [place], [address] MCV (RBC) [Entitic vol] 91.2 fL Normal 81-99 [facility] Comment on above: Performed By: #### L 501.9520, L100.0100, L501.2300, L500.4050 ####[facility] [address] [place], [address] Nucleated RBC (Bld) [#/Vol] 0 10*3/uL Normal 0-5 [facility] Comment on above: Performed By: #### L 501.9520, L100.0100, L501.2300, L500.4050 ####[facility] [address] [place], [address] Platelet mean volume (Bld) [Entitic vol] 9.3 fL Normal 6.2-12.0 [facility] Comment on above: Performed By: #### L 501.9520, L100.0100, L501.2300, L500.4050 ####[facility] [address] [place], [address] Platelets (Bld) [#/Vol] 379 10*3/uL Normal 150-450 [facility] Comment on above: Performed By: #### L 501.9520, L100.0100, L501.2300, L500.4050 ####[facility] [address] [place], [address] RBC (Bld) [#/Vol] 3.73 10*6/uL Low 4.2-5.4 [facility] Comment on above: Performed By: #### L 501.9520, L100.0100, L501.2300, L500.4050 ####[facility] [address] [place], [address] RDW SD 44.9 fl High 35.1-43.9 [facility] Comment on above: Performed By: #### L 501.9520, L100.0100, L501.2300, L500.4050 ####[facility] [address] [place], [address] WBC (Bld) [#/Vol] 9.6 10*3/uL Normal 4.4-11.0 [facility] Comment on above: Performed By: #### L 501.9520, L100.0100, L501.2300, L500.4050 ####[facility] [address] [place], [address] Comprehensive Metabolic Prof [facility] 10-04-2024 Albumin [Mass/Vol] 3.8 g/dL Normal 3.4-4.8 [facility] Comment on above: Performed By: #### L 501.9520, L100.0100, L501.2300, L500.4050 ####[facility] [address] [place], [address] Albumin/Globulin [Mass ratio] 1.4 {ratio} Normal 0.9-2.4 [facility] Comment on above: Performed By: #### L 501.9520, L100.0100, L501.2300, L500.4050 ####[facility] [address] [place], [address] ALK PHOS 88 U/L Normal 35-104 [facility] Comment on above: Performed By: #### L 501.9520, L100.0100, L501.2300, L500.4050 ####[facility] [address] [place], [address] ALT [Catalytic activity/Vol] 12 U/L Normal <=34 [facility] Comment on above: Performed By: #### L 501.9520, L100.0100, L501.2300, L500.4050 ####[facility] [address] [place], [address] AST [Catalytic activity/Vol] 28 U/L Normal <=31 [facility] Comment on above: Performed By: #### L 501.9520, L100.0100, L501.2300, L500.4050 ####[facility] [address] [place], [address] Bilirubin [Mass/Vol] 0.41 mg/dL Normal 0.00-1.30 [facility] Comment on above: Performed By: #### L 501.9520, L100.0100, L501.2300, L500.4050 ####[facility] [address] [place], [address] BUN/CRE 31.8 RATIO High 10-20 [facility] Comment on above: Performed By: #### L 501.9520, L100.0100, L501.2300, L500.4050 ####[facility] [address] [place], [address] Calcium [Mass/Vol] 8.3 mg/dL Normal 7.6-11.0 [facility] Comment on above: Performed By: #### L 501.9520, L100.0100, L501.2300, L500.4050 ####[facility] [address] [place], [address] Chloride [Moles/Vol] 97 mmol/L Low 98-108 [facility] Comment on above: Performed By: #### L 501.9520, L100.0100, L501.2300, L500.4050 ####[facility] [address] [place], [address] CO2 [Moles/Vol] 26.0 mmol/L Normal 21.0-32.0 [facility] Comment on above: Performed By: #### L 501.9520, L100.0100, L501.2300, L500.4050 ####[facility] [address] [place], [address] Creatinine [Mass/Vol] 0.93 mg/dL Normal 0.70-1.20 [facility] Comment on above: Performed By: #### L 501.9520, L100.0100, L501.2300, L500.4050 ####[facility] [address] [place], [address] ECRCL 36.11 ml/min Low 50-250 [facility] Comment on above: Performed By: #### L 501.9520, L100.0100, L501.2300, L500.4050 ####[facility] [address] [place], [address] GAP 13 Normal 5-15 [facility] Comment on above: Performed By: #### L 501.9520, L100.0100, L501.2300, L500.4050 ####[facility] [address] [place], [address] GFR/1.73 sq M.predicted among non-blacks MDRD (S/P/Bld) [Vol rate/Area] 59 mL/min/{1.73_m2} Low >60 [facility] Comment on above: Result Comment: mL/m in/1.73m2 CKD-EPI Creatinine Equation (2020) Performed By: #### L 501.9520, L100.0100, L501.2300, L500.4050 ####[facility] [address] [place], [address] Globulin (S) [Mass/Vol] 2.7 g/dL Normal 2.2-4.2 [facility] Comment on above: Performed By: #### L 501.9520, L100.0100, L501.2300, L500.4050 ####[facility] [address] [place], [address] Glucose [Mass/Vol] 141 mg/dL High 70-99 [facility] Comment on above: Performed By: #### L 501.9520, L100.0100, L501.2300, L500.4050 ####[facility] [address] [place], [address] Potassium [Moles/Vol] 3.6 mmol/L Normal 3.3-5.1 [facility] Comment on above: Performed By: #### L 501.9520, L100.0100, L501.2300, L500.4050 ####[facility] [address] [place], [address] Sodium [Moles/Vol] 136 mmol/L Normal 133-145 [facility] Comment on above: Performed By: #### L 501.9520, L100.0100, L501.2300, L500.4050 ####[facility] [address] [place], [address] T PROT 6.4 g/dL Normal 5.9-8.4 [facility] Comment on above: Performed By: #### L 501.9520, L100.0100, L501.2300, L500.4050 ####[facility] [address] [place], [address] Urea nitrogen [Mass/Vol] 30 mg/dL High 4-19 [facility] Comment on above: Performed By: #### L 501.9520, L100.0100, L501.2300, L500.4050 ####[facility] [address] [place], [address] Eosinophil percentageOrdered By: Juan José Thorpe on 10-04-2024 Eosinophils/100 WBC (Bld) 1.1 % Normal 0-5 [facility] Comment on above: Performed By: #### L 501.9520, L100.0100, L501.2300, L500.4050 ####[facility] [address] [place], [address] Immature granulocytes/100 WB C Auto (Bld)Ordered By: Juan José Thorpe on 10-04-2024 Immature granulocytes/100 WBC (Bld) 0.600 % 0.0-0.9 [facility] Magnesiumon 10-04-2024 Magnesium [Mass/Vol] 3.4 mg/dL High 1.5-2.2 [facility] Comment on above: Performed By: #### L 501.5200, L501.9100 ####[facility] [address] [place], [address] Magnetic resonance imaging r eportOrdered By: Wilner Meredith on 10-04-2024 Study report [facility] Monocyte percentageOrdered B y: Juan José Thorpe on 10-04-2024 Monocytes/100 WBC (Bld) 11.6 % High 0-10 [facility] Comment on above: Performed By: #### L 501.9520, L100.0100, L501.2300, L500.4050 ####[facility] [address] [place], [place], [address] Neutrophil percentageOrdered By: Juan José Thorpe on 10-04-2024 Neutrophils/100 WBC (Bld) 71.3 % High 47-70 [facility] Comment on above: Performed By: #### L 501.9520, L100.0100, L501.2300, L500.4050 ####[facility] [address] [place], [place], [address] No Panel InformationOrdered By: Juan José Thorpe on 10-04-2024 28 U/L <32 [facility] Phosphoruson 10-04-2024 Phosphate [Mass/Vol] 2.5 mg/dL Low 2.7-4.5 [facility] Comment on above: Performed By: #### L 501.9520, L100.0100, L501.2300, L500.4050 ####[facility] [address] [place], [place], [id number] Serum globulin measurementOr dered By: Juan José Thorpe on 10-04-2024 Globulin (S) [Mass/Vol] 2.7 g/dL 2.2-4.2 [facility] Serum or plasma alanine clifton otransferase (ALT) measurementOrdered By: Juan José Thorpe on 10-04-2024 ALT [Catalytic activity/Vol] 12 U/L <35 [facility] Serum or plasma albumin manuel urement (mass/volume)Ordered By: Juan José Thorpe on 10-04-2024 Albumin [Mass/Vol] 3.8 g/dL 3.4-4.8 [facility] Serum or plasma albumin/glob ulin mass ratioOrdered By: Juan José Thorpe on 10-04-2024 Albumin/Globulin [Mass ratio] 1.4 {ratio} 0.9-2.4 [facility] Serum or plasma alkaline bibi sphatase measurementOrdered By: Juan José Thorpe on 10-04-2024 ALP [Catalytic activity/Vol] 88 U/L 35-104 [facility] TSH DL <= 0.005 mIU/L QnOrde red By: Juan José Thorpe on 10-04-2024 TSH Qn 0.373 uIU/mL 0.300-4.200 [facility] Thyroid Stim Hormone (TSH)on 10-04-2024 TSH 0.373 uIU/mL Normal 0.300-4.200 [facility] Comment on above: Performed By: #### L 501.9520, L100.0100, L501.2300, L500.4050 ####[facility] [address] [place], [place], [address] Total proteinOrdered By: Obed Thorpe on 10-04-2024 Protein [Mass/Vol] 6.4 g/dL 5.9-8.4 [facility] Urine Cultureon 10-04-2024 URC Organism is too fastidious for routine susceptibility studies. Aerococcus urinae [place] Count 80,000-100,000 Normal [facility] Comment on above: Performed By: #### M 100.2200 ####[facility] [address] [place], [place], [id number] 12 Lead EKGon 10-03-2024 12 Lead EKG Normal [facility] Absolute lymphocyte countOrd ered By: Diana Snow on 10-03-2024 Lymphocytes Auto (Unsp spec) [#/Vol] 0.99 10*3/uL 0.83-4.51 [facility] Amphetamine detection with 1 000 ng/mL as cutoffOrdered By: Diana Snow on 10-03-2024 Amphetamines Screen method >1000 ng/mL Ql (U) Negative < 200 ng/mL [facility] Anion gap in Serum or Plasma Ordered By: Diana Snow on 10-03-2024 Anion gap [Moles/Vol] 11 mmol/L 5-15 [facility] Automated lymphocyte count a s percentage of total leukocytesOrdered By: Diana Snow on 10-03-2024 Lymphocytes/100 WBC Auto (Unsp spec) 9.6 % Low 19-41 [facility] BUN/creatinine ratioOrdered By: Diana Snow on 10-03-2024 Urea nitrogen/Creatinine [Mass ratio] 33.3 mg/mg High 10-20 [facility] Basic Metabolic Profile (BMP )on 10-03-2024 BUN/CRE 33.3 RATIO High 10- [facility] Comment on above: Performed By: #### L 500.2500, L100.0100 ####[facility] [address] [place], [address] Calcium [Mass/Vol] 8.4 mg/dL Normal 7.6-11.0 [facility] Comment on above: Performed By: #### L 500.2500, L100.0100 ####[facility] [address] [place], [address] Chloride [Moles/Vol] 96 mmol/L Low 98-108 [facility] Comment on above: Performed By: #### L 500.2500, L100.0100 ####[facility] [address] [place], [address] CO2 [Moles/Vol] 28.4 mmol/L Normal 21.0-32.0 [facility] Comment on above: Performed By: #### L 500.2500, L100.0100 ####[facility] [address] [place], [address] Creatinine [Mass/Vol] 1.04 mg/dL Normal 0.70-1.20 [facility] Comment on above: Performed By: #### L 500.2500, L100.0100 ####[facility] [address] [place], [address] ECRCL 35.97 ml/min Low 50-250 [facility] Comment on above: Performed By: #### L 500.2500, L100.0100 ####[facility] [address] [place], [address] GAP 11 Normal 5-15 [facility] Comment on above: Performed By: #### L 500.2500, L100.0100 ####[facility] [address] [place], [address] GFR/1.73 sq M.predicted among non-blacks MDRD (S/P/Bld) [Vol rate/Area] 52 mL/min/{1.73_m2} Low >60 [facility] Comment on above: Result Comment: mL/m in/1.73m2 CKD-EPI Creatinine Equation (2020) Performed By: #### L 500.2500, L100.0100 ####[facility] [address] [place], [address] Glucose [Mass/Vol] 121 mg/dL High 70-99 [facility] Comment on above: Performed By: #### L 500.2500, L100.0100 ####[facility] [address] [place], [address] Potassium [Moles/Vol] 4.2 mmol/L Normal 3.3-5.1 [facility] Comment on above: Performed By: #### L 500.2500, L100.0100 ####[facility] [address] [place], [address] Sodium [Moles/Vol] 134 mmol/L Normal 133-145 [facility] Comment on above: Performed By: #### L 500.2500, L100.0100 ####[facility] [address] [place], [address] Urea nitrogen [Mass/Vol] 35 mg/dL High 4-19 [facility] Comment on above: Performed By: #### L 500.2500, L100.0100 ####[facility] [address] [place], [address] Basophil percentageOrdered B y: Diana Snow on 10-03-2024 Basophils/100 WBC (Bld) 0.3 % 0-1 [facility] Bilirubin Test strip Ql (U)O rdered By: Diana Snow on 10-03-2024 Bilirubin Ql (U) Negative Negative [facility] Brain/Head without Contrasto n 10-03-2024 Brain/Head without Contrast Normal [facility] CBC W/Diff, Automatedon 09-10 Absolute Lymph 0.99 X10 3/uL Normal 0.83-4.51 [facility] Comment on above: Performed By: #### L 500.2500, L100.0100 ####[facility] [address] [place], [address] Absolute Neut 8.2 X10 3/uL High 2.0-7.7 [facility] Comment on above: Performed By: #### L 500.2500, L100.0100 ####[facility] [address] [place], [address] Basophils/100 WBC (Bld) 0.3 % Normal 0-1 [facility] Comment on above: Performed By: #### L 500.2500, L100.0100 ####[facility] [address] [place], [address] Eosinophils/100 WBC (Bld) 0.1 % Normal 0-5 [facility] Comment on above: Performed By: #### L 500.2500, L100.0100 ####[facility] [address] [place], [address] Erythrocyte distribution width (RBC) [Ratio] 13.3 % Normal 11.6-14.6 [facility] Comment on above: Performed By: #### L 500.2500, L100.0100 ####[facility] [address] [place], [address] Hematocrit (Bld) [Volume fraction] 32.2 % Low 37-47 [facility] Comment on above: Performed By: #### L 500.2500, L100.0100 ####[facility] [address] [place], [address] Hemoglobin (Bld) [Mass/Vol] 10.4 g/dL Low 12.0-15.0 [facility] Comment on above: Performed By: #### L 500.2500, L100.0100 ####[facility] [address] [place], [address] IG% 0.600 Normal 0.0-0.9 [facility] Comment on above: Result Comment: IG% - Immature Granulocytes (promyelocytes, myelocytes andmetamyelocytes) > 1% indicates that a LEFT SHIFT is Present. Performed By: #### L 500.2500, L100.0100 ####[facility] [address] [place], [address] Lymphocytes/100 WBC (Bld) 9.6 % Low 19-41 [facility] Comment on above: Performed By: #### L 500.2500, L100.0100 ####[facility] [address] [place], [address] MCH (RBC) [Entitic mass] 29.4 pg Normal 27.0-32.0 [facility] Comment on above: Performed By: #### L 500.2500, L100.0100 ####[facility] [address] [place], [address] MCHC (RBC) [Mass/Vol] 32.3 g/dL Normal 32-36 [facility] Comment on above: Performed By: #### L 500.2500, L100.0100 ####[facility] [address] [place], [address] MCV (RBC) [Entitic vol] 91.0 fL Normal 81-99 [facility] Comment on above: Performed By: #### L 500.2500, L100.0100 ####[facility] [address] [place], [address] Monocytes/100 WBC (Bld) 9.8 % Normal 0-10 [facility] Comment on above: Performed By: #### L 500.2500, L100.0100 ####[facility] [address] [place], [address] Neutrophils/100 WBC (Bld) 79.6 % High 47-70 [facility] Comment on above: Performed By: #### L 500.2500, L100.0100 ####[facility] [address] [place], [address] Nucleated RBC (Bld) [#/Vol] 0 10*3/uL Normal 0-5 [facility] Comment on above: Performed By: #### L 500.2500, L100.0100 ####[facility] [address] [place], [address] Platelet mean volume (Bld) [Entitic vol] 9.2 fL Normal 6.2-12.0 [facility] Comment on above: Performed By: #### L 500.2500, L100.0100 ####[facility] [address] [place], [address] Platelets (Bld) [#/Vol] 368 10*3/uL Normal 150-450 [facility] Comment on above: Performed By: #### L 500.2500, L100.0100 ####[facility] [address] [place], [address] RBC (Bld) [#/Vol] 3.54 10*6/uL Low 4.2-5.4 [facility] Comment on above: Performed By: #### L 500.2500, L100.0100 ####[facility] [address] [place], [address] RDW SD 44.4 fl High 35.1-43.9 [facility] Comment on above: Performed By: #### L 500.2500, L100.0100 ####[facility] [address] [place], [address] WBC (Bld) [#/Vol] 10.3 10*3/uL Normal 4.4-11.0 [facility] Comment on above: Performed By: #### L 500.2500, L100.0100 ####[facility] [address] [place], [address] Carbon dioxide, total [Moles /volume] in Central venous bloodOrdered By: Diana Snow on 10-03-2024 CO2 [Moles/Vol] 28.4 mmol/L 21.0-32.0 [facility] Chest without Contraston Chest without Contrast Normal [facility] Chloride assayOrdered By: Neto Snow on 10-03-2024 Chloride [Moles/Vol] 96 mmol/L Low 98-108 [facility] Emergency Department Summary on 10-03-2024 Emergency Department Summary Normal [facility] Eosinophil percentageOrdered By: Diana Snow on 10-03-2024 Eosinophils/100 WBC (Bld) 0.1 % 0-5 [facility] Erythrocyte distribution wid th ratioOrdered By: Diana Snow on 10-03-2024 Erythrocyte distribution width (RBC) [Ratio] 13.3 % 11.6-14.6 [facility] Erythrocyte distribution wid th standard deviationOrdered By: Diana Snow on 10-03-2024 Erythrocyte distribution width (RBC) [Ratio] 44.4 fl High 35.1-43.9 [facility] Glomerular filtration rate ( GFR) estimation/1.73 sq m using serum, plasma, or whole bOrdered By: Diana Snow on 10-03-2024 GFR/1.73 sq M.predicted among non-blacks MDRD (S/P/Bld) [Vol rate/Area] 52 mL/min/{1.73_m2} Low >60 [facility] H AND P Exam - [place] 10-03-2024 H&P Exam - Hospitalist Normal [facility] HIP, UNI W/ Pelvis 2-3 Views on 10-03-2024 HIP, UNI W/ Pelvis 2-3 Views Normal [facility] Hematocrit Auto (Bld) [Volum e fraction]Ordered By: Diana Snow on 10-03-2024 Hematocrit (Bld) [Volume fraction] 32.2 % Low 37-47 [facility] [facility] Hemoglobin measurementOrdere d By: Diana Snow on 10-03-2024 Hemoglobin (Bld) [Mass/Vol] 10.4 g/dL Low 12.0-15.0 [facility] Immature granulocytes/100 WB C Auto (Bld)Ordered By: Diana Snow on 10-03-2024 Immature granulocytes/100 WBC (Bld) 0.600 % 0.0-0.9 [facility] Ketones Test strip Ql (U)Ord ered By: Diana Snow on 10-03-2024 Ketones Ql (U) Negative Negative [facility] MCV (mean corpuscular volume ) determinationOrdered By: Diana Snow on 10-03-2024 MCV (RBC) [Entitic vol] 91.0 fL 81-99 [facility] Magnesium measurement (mass/ volume)Ordered By: Juan José Thorpe on 10-03-2024 Magnesium (Unsp spec) [Mass/Vol] 3.4 mg/dL High 1.5-2.2 [facility] Mean corpuscular hemoglobin (MCH) determinationOrdered By: Diana Snow on 10-03-2024 MCH (RBC) [Entitic mass] 29.4 pg 27.0-32.0 [facility] Monocyte percentageOrdered B y: Diana Snow on 10-03-2024 Monocytes/100 WBC (Bld) 9.8 % 0-10 [facility] Mucus LM Ql (Urine sed)Order ed By: Diana Snow on 10-03-2024 Mucus Ql (Urine sed) 0 SEEN /hpf [facility] Neutrophil percentageOrdered By: Diana Snow on 10-03-2024 Neutrophils/100 WBC (Bld) 79.6 % High 47-70 [facility] Nitrite Test strip Ql (U)Ord ered By: Diana Snow on 10-03-2024 Nitrite Ql (U) Negative Negative [facility] No Panel InformationOrdered By: Diana Snow on 10-03-2024 Negative < 200 ng/mL [facility] Platelet countOrdered By: Neto Snow on 10-03-2024 Platelets (Bld) [#/Vol] 368 10*3/uL 150-450 [facility] Potassium measurement (mass/ volume)Ordered By: Diana Snow on 10-03-2024 Potassium (Unsp spec) [Mass/Vol] 4.2 mmol/L 3.3-5.1 [facility] Protein Test strip Ql (U)Ord ered By: Diana Snow on 10-03-2024 Protein Ql (U) 30 mg/dl High Negative [facility] RBC Auto (Bld) [#/Vol]Ordere d By: Diana Snow on 10-03-2024 RBC (Bld) [#/Vol] 3.54 10*6/uL Low 4.2-5.4 [facility] Screening urine fentanyl fran surementOrdered By: Diana Snow on 10-03-2024 fentaNYL Screen Ql (U) Negative [facility] Serum creatinine measurement (mass/volume)Ordered By: Diana Snow on 10-03-2024 Creatinine [Mass/Vol] 1.04 mg/dL 0.70-1.20 [facility] Serum glucose measurement (m ass/volume)Ordered By: Diana Snow on 10-03-2024 Glucose [Mass/Vol] 121 mg/dL High 70-99 [facility] Serum or plasma calcium manuel urement (mass/volume)Ordered By: Diana Snow on 10-03-2024 Calcium [Mass/Vol] 8.4 mg/dL 7.6-11.0 [facility] Serum or plasma ethanol manuel urement (mass/volume)Ordered By: Juan José Thorpe on 10-03-2024 Ethanol [Mass/Vol] mg/dL <10.1 [facility] Serum or plasma urea nitroge n measurement (mass/volume)Ordered By: Diana Snow on 10-03-2024 Urea nitrogen [Mass/Vol] 35 mg/dL High 4-19 [facility] Sodium levelOrdered By: Roly Snow on 10-03-2024 Sodium [Moles/Vol] 134 mmol/L 133-145 [facility] Spine Cervical without Contr ason 10-03-2024 Spine Cervical without Contras Normal [facility] Squamous epithelial cells de tection in urine sediment by light microscopyOrdered By: Diana Snow on 10-03-2024 Epithelial cells.squamous LM Ql (Urine sed) 0 SEEN /hpf 5-10 [facility] Urinalysis, Completeon 10-03 BACTERIA 2+ /hpf Normal None Seen [facility] Comment on above: Order Comment: CLEAN CATCH Performed By: #### L 400.0001 ####[facility] [address] [facility] [address] RBC 0-5 SEEN Normal 0-5 [facility] Comment on above: Order Comment: CLEAN CATCH Performed By: #### L 400.0001 ####[facility] [address] [place], [place], [phone] WBC 0-5 SEEN Normal 0-5 [facility] Comment on above: Order Comment: CLEAN CATCH Performed By: #### L 400.0001 ####[facility] [address] [facility] [id number] EPI,SQUAMOUS 0 SEEN Normal 5-10 [facility] Comment on above: Order Comment: CLEAN CATCH Performed By: #### L 400.0001 ####[facility] [address] [facility] [id number] Mucus Ql (Urine sed) 0 SEEN Normal [facility] Comment on above: Order Comment: CLEAN CATCH Performed By: #### L 400.0001 ####[facility] [address] [facility] [phone] Urine Drug Screen (VISTA)on 10-03-2024 AMPHETAMINES Negative Normal <1000 ng/mL [facility] Comment on above: Performed By: #### L 505.5000 ####[facility] [address] [facility] [address] BARBITIURATES Negative Normal < 200 ng/mL [facility] Comment on above: Performed By: #### L 505.5000 ####[facility] [address] [place] [address] BENZODIAZIPINE Negative Normal < 200 ng/mL [facility] Comment on above: Performed By: #### L 505.5000 ####[facility] [address] [place] [address] BUP Ur Drug Scr Negative Normal < 200 ng/mL [facility] Comment on above: Performed By: #### L 505.5000 ####[facility] [address] [place] [address] COCAINE Negative Normal < 300 ng/mL [facility] Comment on above: Performed By: #### L 505.5000 ####[facility] [address] [place] [address] Fentanyl Negative Normal [facility] Comment on above: Performed By: #### L 505.5000 ####[facility] [address] [place] [address] METHADONE Negative Normal < 300 ng/mL [facility] Comment on above: Performed By: #### L 505.5000 ####[facility] [address] [place] [address] OPIATES Positive Normal < 300 ng/mL [facility] Comment on above: Result Comment: If c onfirmation testing is needed, a separate order will berequired to send out testing to the reference laboratory. Performed By: #### L 505.5000 ####[facility] [address] [place] [address] OXYCODONE Negative Normal < 100 ng/mL [facility] Comment on above: Performed By: #### L 505.5000 ####[facility] [address] [place] [address] PCP Negative Normal < 25 ng/mL [facility] Comment on above: Performed By: #### L 505.5000 ####[facility] [address] [place], [place], [phone] THC Negative Normal < 50 ng/mL [facility] Comment on above: Performed By: #### L 505.5000 ####[facility] [address] [place], [place], [phone] Urine clarityOrdered By: Jocelynn Snow on 10-03-2024 Clarity (U) Clear Clear [facility] Urine color determinationOrd ered By: Diana Snow on 10-03-2024 Color (U) Straw Yellow [facility] Urine cultureOrdered By: Jocelynn Snow on 10-03-2024 Bacteria identified Cx Nom (U) Aerococcus urinae Abnormal [facility] Urine glucose detectionOrder ed By: Diana Snow on 10-03-2024 Glucose Ql (U) Normal mg/dl Normal [facility] Urine leukocyte esterase det ection by dipstickOrdered By: Diana Snow on 10-03-2024 Leukocyte esterase Test strip Ql (U) Negative Negative [facility] Urine pHOrdered By: Diana ann on 10-03-2024 pH (U) 6.5 [pH] 5.0 - 8.0 [facility] Urine phencyclidine (PCP) de tectionOrdered By: Diana Snow on 10-03-2024 Phencyclidine Ql (U) Negative < 25 ng/mL [facility] Urine sediment bacteria coun t by microscopy (number/high power field)Ordered By: Diana Snow on 10-03-2024 Bacteria LM.HPF (Urine sed) [#/Area] 2 /[HPF] None Seen [facility] Urine specific gravity measu rementOrdered By: Diana Snow on 10-03-2024 Specific gravity (U) [Rel density] 1.010 1.002-1.030 [facility] Urine urobilinogen measureme ntOrdered By: Diana Snow on 10-03-2024 Urobilinogen Ql (U) Normal mg/dl Normal [facility] White blood cell (WBC) count Ordered By: Diana Snow on 10-03-2024 WBC (Bld) [#/Vol] 10.3 10*3/uL 4.4-11.0 [facility] White blood cell countOrdere d By: Diana Snow on 10-03-2024 White blood cell count 0-5 SEEN /hpf 0-5 [facility] 12 Lead EKGon 10-01-2024 12 Lead EKG Normal [facility] Absolute lymphocyte countOrd ered By: Ayaz Hinton on 10-01-2024 Lymphocytes Auto (Unsp spec) [#/Vol] 1.04 10*3/uL 0.83-4.51 [facility] Amorphous sediment detection in urine sediment by light microscopyOrdered By: Ayaz Hinton on 10-01-2024 Amorphous sediment LM Ql (Urine sed) 2+ [facility] Anion gap in Serum or Plasma Ordered By: Ayaz Hinton on 10-01-2024 Anion gap [Moles/Vol] 12 mmol/L 5-15 [facility] Automated lymphocyte count a s percentage of total leukocytesOrdered By: Ayaz Hinton on 10-01-2024 Lymphocytes/100 WBC Auto (Unsp spec) 10.9 % Low 19-41 [facility] BUN/creatinine ratioOrdered By: Ayaz Hinton on 10-01-2024 Urea nitrogen/Creatinine [Mass ratio] 28.7 mg/mg High 10-20 [facility] Basic Metabolic Profile (BMP )on 10-01-2024 BUN/CRE 28.7 RATIO High 10- [facility] Comment on above: Performed By: #### L 100.0100, L500.3400, L500.2500 ####[facility] [address] [place], [place], [phone] Calcium [Mass/Vol] 9.0 mg/dL Normal 7.6-11.0 [facility] Comment on above: Performed By: #### L 100.0100, L500.3400, L500.2500 ####[facility] [address] [place], [address] Chloride [Moles/Vol] 92 mmol/L Low 98-108 [facility] Comment on above: Performed By: #### L 100.0100, L500.3400, L500.2500 ####[facility] [address] [place], [address] CO2 [Moles/Vol] 28.3 mmol/L Normal 21.0-32.0 [facility] Comment on above: Performed By: #### L 100.0100, L500.3400, L500.2500 ####[facility] [address] [place], [address] Creatinine [Mass/Vol] 1.17 mg/dL Normal 0.70-1.20 [facility] Comment on above: Performed By: #### L 100.0100, L500.3400, L500.2500 ####[facility] [address] [place], [address] ECRCL 32.33 ml/min Low 50-250 [facility] Comment on above: Performed By: #### L 100.0100, L500.3400, L500.2500 ####[facility] [address] [place], [address] GAP 12 Normal 5-15 [facility] Comment on above: Performed By: #### L 100.0100, L500.3400, L500.2500 ####[facility] [address] [place], [address] GFR/1.73 sq M.predicted among non-blacks MDRD (S/P/Bld) [Vol rate/Area] 45 mL/min/{1.73_m2} Low >60 [facility] Comment on above: Result Comment: mL/m in/1.73m2 CKD-EPI Creatinine Equation (2020) Performed By: #### L 100.0100, L500.3400, L500.2500 ####[facility] [address] [place], [address] Glucose [Mass/Vol] 116 mg/dL High 70-99 [facility] Comment on above: Performed By: #### L 100.0100, L500.3400, L500.2500 ####[facility] [address] [place], [address] Potassium [Moles/Vol] 4.3 mmol/L Normal 3.3-5.1 [facility] Comment on above: Performed By: #### L 100.0100, L500.3400, L500.2500 ####[facility] [address] [place], [address] Sodium [Moles/Vol] 133 mmol/L Normal 133-145 [facility] Comment on above: Performed By: #### L 100.0100, L500.3400, L500.2500 ####[facility] [address] [place], [address] Urea nitrogen [Mass/Vol] 34 mg/dL High 4-19 [facility] Comment on above: Performed By: #### L 100.0100, L500.3400, L500.2500 ####[facility] [address] [place], [address] Basophil percentageOrdered B y: Ayaz Hinton on 10-01-2024 Basophils/100 WBC (Bld) 0.6 % 0-1 [facility] Bilirubin Test strip Ql (U)O rdered By: Ayaz Hinton on 10-01-2024 Bilirubin Ql (U) Negative Negative [facility] Bilirubin directOrdered By: Ayaz Hinton on 10-01-2024 Bilirubin.direct [Mass/Vol] 0.23 mg/dL 0.00-0.30 [facility] Bilirubin, totalOrdered By: Ayaz Hinton on 10-01-2024 Bilirubin [Mass/Vol] 0.42 mg/dL 0.00-1.30 [facility] CBC W/Diff, Automatedon 05-2 -2024 Absolute Lymph 1.04 X10 3/uL Normal 0.83-4.51 [facility] Comment on above: Performed By: #### L 100.0100, L500.3400, L500.2500 ####[facility] [address] [place], [address] Absolute Neut 7.6 X10 3/uL Normal 2.0-7.7 [facility] Comment on above: Performed By: #### L 100.0100, L500.3400, L500.2500 ####[facility] [address] [place], [address] Basophils/100 WBC (Bld) 0.6 % Normal 0-1 [facility] Comment on above: Performed By: #### L 100.0100, L500.3400, L500.2500 ####[facility] [address] [place], [address] Eosinophils/100 WBC (Bld) 1.9 % Normal 0-5 [facility] Comment on above: Performed By: #### L 100.0100, L500.3400, L500.2500 ####[facility] [address] [place], [address] Erythrocyte distribution width (RBC) [Ratio] 13.3 % Normal 11.6-14.6 [facility] Comment on above: Performed By: #### L 100.0100, L500.3400, L500.2500 ####[facility] [address] [place], [address] Hematocrit (Bld) [Volume fraction] 36.1 % Low 37-47 [facility] Comment on above: Performed By: #### L 100.0100, L500.3400, L500.2500 ####[facility] [address] [place], [address] Hemoglobin (Bld) [Mass/Vol] 11.3 g/dL Low 12.0-15.0 [facility] Comment on above: Performed By: #### L 100.0100, L500.3400, L500.2500 ####[facility] [address] [place], [address] IG% 0.800 Normal 0.0-0.9 [facility] Comment on above: Result Comment: IG% - Immature Granulocytes (promyelocytes, myelocytes andmetamyelocytes) > 1% indicates that a LEFT SHIFT is Present. Performed By: #### L 100.0100, L500.3400, L500.2500 ####[facility] [address] [place], [address] Lymphocytes/100 WBC (Bld) 10.9 % Low 19-41 [facility] Comment on above: Performed By: #### L 100.0100, L500.3400, L500.2500 ####[facility] [address] [place], [address] MCH (RBC) [Entitic mass] 28.5 pg Normal 27.0-32.0 [facility] Comment on above: Performed By: #### L 100.0100, L500.3400, L500.2500 ####[facility] [address] [place], [address] MCHC (RBC) [Mass/Vol] 31.3 g/dL Low 32-36 [facility] Comment on above: Performed By: #### L 100.0100, L500.3400, L500.2500 ####[facility] [address] [place], [address] MCV (RBC) [Entitic vol] 91.2 fL Normal 81-99 [facility] Comment on above: Performed By: #### L 100.0100, L500.3400, L500.2500 ####[facility] [address] [place], [address] Monocytes/100 WBC (Bld) 6.0 % Normal 0-10 [facility] Comment on above: Performed By: #### L 100.0100, L500.3400, L500.2500 ####[facility] [address] [place], [address] Neutrophils/100 WBC (Bld) 79.8 % High 47-70 [facility] Comment on above: Performed By: #### L 100.0100, L500.3400, L500.2500 ####[facility] [address] [place], [address] Nucleated RBC (Bld) [#/Vol] 0 10*3/uL Normal 0-5 [facility] Comment on above: Performed By: #### L 100.0100, L500.3400, L500.2500 ####[facility] [address] [place], [address] Platelet mean volume (Bld) [Entitic vol] 9.1 fL Normal 6.2-12.0 [facility] Comment on above: Performed By: #### L 100.0100, L500.3400, L500.2500 ####[facility] [address] [place], [address] Platelets (Bld) [#/Vol] 374 10*3/uL Normal 150-450 [facility] Comment on above: Performed By: #### L 100.0100, L500.3400, L500.2500 ####[facility] [address] [place], [address] RBC (Bld) [#/Vol] 3.96 10*6/uL Low 4.2-5.4 [facility] Comment on above: Performed By: #### L 100.0100, L500.3400, L500.2500 ####[facility] [address] [place], [address] RDW SD 44.9 fl High 35.1-43.9 [facility] Comment on above: Performed By: #### L 100.0100, L500.3400, L500.2500 ####[facility] [address] [place], [address] WBC (Bld) [#/Vol] 9.5 10*3/uL Normal 4.4-11.0 [facility] Comment on above: Performed By: #### L 100.0100, L500.3400, L500.2500 ####[facility] [address] [place], [address] Carbon dioxide, total [Moles /volume] in Central venous bloodOrdered By: Ayaz Hinton on 10-01-2024 CO2 [Moles/Vol] 28.3 mmol/L 21.0-32.0 [facility] Chest 1 View (Portable)on Chest 1 View (Portable) Normal [facility] Chloride assayOrdered By: Freddie Hinton on 10-01-2024 Chloride [Moles/Vol] 92 mmol/L Low 98-108 [facility] Emergency Department Summary on 10-01-2024 Emergency Department Summary Normal [facility] Eosinophil percentageOrdered By: Ayaz Hinton on 10-01-2024 Eosinophils/100 WBC (Bld) 1.9 % 0-5 [facility] Erythrocyte distribution wid th ratioOrdered By: Ayaz Hinton on 10-01-2024 Erythrocyte distribution width (RBC) [Ratio] 13.3 % 11.6-14.6 [facility] Erythrocyte distribution wid th standard deviationOrdered By: Ayaz iHnton on 10-01-2024 Erythrocyte distribution width (RBC) [Ratio] 44.9 fl High 35.1-43.9 [facility] Glomerular filtration rate ( GFR) estimation/1.73 sq m using serum, plasma, or whole bOrdered By: Ayaz Hinton on 10-01-2024 GFR/1.73 sq M.predicted among non-blacks MDRD (S/P/Bld) [Vol rate/Area] 45 mL/min/{1.73_m2} Low >60 [facility] Hematocrit Auto (Bld) [Volum e fraction]Ordered By: Ayaz Hinton on 10-01-2024 Hematocrit (Bld) [Volume fraction] 36.1 % Low 37-47 [facility] Hemoglobin measurementOrdere d By: Ayaz Hinton on 10-01-2024 Hemoglobin (Bld) [Mass/Vol] 11.3 g/dL Low 12.0-15.0 [facility] Immature granulocytes/100 WB C Auto (Bld)Ordered By: Ayaz Hinton on 10-01-2024 Immature granulocytes/100 WBC (Bld) 0.800 % 0.0-0.9 [facility] Ketones Test strip Ql (U)Ord ered By: Ayaz Hinton on 10-01-2024 Ketones Ql (U) Negative Negative [facility] Liver Profileon 10-01-2024 Albumin [Mass/Vol] 4.1 g/dL Normal 3.4-4.8 [facility] Comment on above: Performed By: #### L 100.0100, L500.3400, L500.2500 ####[facility] [address] [place], [address] ALK PHOS 96 U/L Normal 35-104 [facility] Comment on above: Performed By: #### L 100.0100, L500.3400, L500.2500 ####[facility] [address] [place], [address] ALT [Catalytic activity/Vol] 9 U/L Normal <=34 [facility] Comment on above: Performed By: #### L 100.0100, L500.3400, L500.2500 ####[facility] [address] [place], [address] AST [Catalytic activity/Vol] 23 U/L Normal <=31 [facility] Comment on above: Performed By: #### L 100.0100, L500.3400, L500.2500 ####[facility] [address] [place], [address] Bilirubin [Mass/Vol] 0.42 mg/dL Normal 0.00-1.30 [facility] Comment on above: Performed By: #### L 100.0100, L500.3400, L500.2500 ####[facility] [address] [place], [address] Bilirubin.direct [Mass/Vol] 0.23 mg/dL Normal 0.00-0.30 [facility] Comment on above: Performed By: #### L 100.0100, L500.3400, L500.2500 ####[facility] [address] [place], [address] Globulin (S) [Mass/Vol] 3.0 g/dL Normal 2.2-4.2 [facility] Comment on above: Performed By: #### L 100.0100, L500.3400, L500.2500 ####[facility] [address] [place], [address] T PROT 7.1 g/dL Normal 5.9-8.4 [facility] Comment on above: Performed By: #### L 100.0100, L500.3400, L500.2500 ####[facility] [address] [place], [address] MCV (mean corpuscular volume ) determinationOrdered By: Ayaz Hinton on 10-01-2024 MCV (RBC) [Entitic vol] 91.2 fL 81-99 [facility] Mean corpuscular hemoglobin (MCH) determinationOrdered By: Ayaz Hinton on 10-01-2024 MCH (RBC) [Entitic mass] 28.5 pg 27.0-32.0 [facility] Monocyte percentageOrdered B y: Ayaz Hinton on 10-01-2024 Monocytes/100 WBC (Bld) 6.0 % 0-10 [facility] Mucus LM Ql (Urine sed)Order ed By: Ayaz Hinton on 10-01-2024 Mucus Ql (Urine sed) 0 SEEN /hpf [facility] Neutrophil percentageOrdered By: Ayaz Hinton on 10-01-2024 Neutrophils/100 WBC (Bld) 79.8 % High 47-70 [facility] Nitrite Test strip Ql (U)Ord ered By: Ayaz Hinton on 10-01-2024 Nitrite Ql (U) Negative Negative [facility] No Panel InformationOrdered By: Ayaz Hinton on 10-01-2024 23 U/L <32 [facility] Platelet countOrdered By: Freddie Hinton on 10-01-2024 Platelets (Bld) [#/Vol] 374 10*3/uL 150-450 [facility] Potassium measurement (mass/ volume)Ordered By: Ayaz Hinton on 10-01-2024 Potassium (Unsp spec) [Mass/Vol] 4.3 mmol/L 3.3-5.1 [facility] Protein Test strip Ql (U)Ord ered By: Ayaz Hinton on 10-01-2024 Protein Ql (U) 100 mg/dl High Negative [facility] RBC Auto (Bld) [#/Vol]Ordere d By: Ayaz Hinton on 10-01-2024 RBC (Bld) [#/Vol] 3.96 10*6/uL Low 4.2-5.4 [facility] Serum creatinine measurement (mass/volume)Ordered By: Ayaz Hinton on 10-01-2024 Creatinine [Mass/Vol] 1.17 mg/dL 0.70-1.20 [facility] Serum globulin measurementOr dered By: Ayaz Hinton on 10-01-2024 Globulin (S) [Mass/Vol] 3.0 g/dL 2.2-4.2 [facility] Serum glucose measurement (m ass/volume)Ordered By: Ayaz Hinton on 10-01-2024 Glucose [Mass/Vol] 116 mg/dL High 70-99 [facility] Serum or plasma alanine clifton otransferase (ALT) measurementOrdered By: Ayaz Hinton on 10-01-2024 ALT [Catalytic activity/Vol] 9 U/L <35 [facility] Serum or plasma albumin manuel urement (mass/volume)Ordered By: Ayaz Hinton on 10-01-2024 Albumin [Mass/Vol] 4.1 g/dL 3.4-4.8 [facility] Serum or plasma alkaline bibi sphatase measurementOrdered By: Ayaz Hinton on 10-01-2024 ALP [Catalytic activity/Vol] 96 U/L 35-104 [facility] Serum or plasma calcium manuel urement (mass/volume)Ordered By: Ayaz Hinton on 10-01-2024 Calcium [Mass/Vol] 9.0 mg/dL 7.6-11.0 [facility] Serum or plasma urea nitroge n measurement (mass/volume)Ordered By: Ayaz Hinton on 10-01-2024 Urea nitrogen [Mass/Vol] 34 mg/dL High 4-19 [facility] Sodium levelOrdered By: aMrquise Hinton on 10-01-2024 Sodium [Moles/Vol] 133 mmol/L 133-145 [facility] Squamous epithelial cells de tection in urine sediment by light microscopyOrdered By: Ayaz Hinton on 10-01-2024 Epithelial cells.squamous LM Ql (Urine sed) 0 SEEN /hpf 5-10 [facility] Total proteinOrdered By: Kota Hinton on 10-01-2024 Protein [Mass/Vol] 7.1 g/dL 5.9-8.4 [facility] Urinalysis, Completeon 10-01 AMORPHOUS 2+ Normal [facility] Comment on above: Order Comment: MARV CTOR TO SPECIFY Performed By: #### L 400.0001 ####[facility] [address] [place], [place], [id number] BACTERIA 1+ /hpf Normal None Seen [facility] Comment on above: Order Comment: MARV CTOR TO SPECIFY Performed By: #### L 400.0001 ####[facility] [address], [address] RBC 0-5 SEEN Normal 0-5 [facility] Comment on above: Order Comment: MARV CTOR TO SPECIFY Performed By: #### L 400.0001 ####[facility] [address] [place], [address] WBC 10-25 SEEN Normal 0-5 [facility] Comment on above: Order Comment: MARV CTOR TO SPECIFY Performed By: #### L 400.0001 ####[facility] [address] [place], [address] EPI,SQUAMOUS 0 SEEN Normal 5-10 [facility] Comment on above: Order Comment: COLLE CTOR TO SPECIFY Performed By: #### L 400.0001 ####[facility] [address] [place], [address] Mucus Ql (Urine sed) 0 SEEN Normal [facility] Comment on above: Order Comment: MARV CTOR TO SPECIFY Performed By: #### L 400.0001 ####[facility] [address] [place], [place], [address] Urine clarityOrdered By: Kota Hinton on 10-01-2024 Clarity (U) Cloudy Clear [facility] Urine color determinationOrd ered By: Ayaz Hinton on 10-01-2024 Color (U) Yellow Yellow [facility] Urine cultureOrdered By: Kota Hinton on 10-01-2024 Bacteria identified Cx Nom (U) Aerococcus urinae Abnormal [facility] Urine glucose detectionOrder ed By: Ayaz Hinton on 10-01-2024 Glucose Ql (U) Normal mg/dl Normal [facility] Urine leukocyte esterase det ection by dipstickOrdered By: Ayaz Hinton on 10-01-2024 Leukocyte esterase Test strip Ql (U) 100 /ul High Negative [facility] Urine pHOrdered By: Ayaz amaro on 10-01-2024 pH (U) 6.0 [pH] 5.0 - 8.0 [facility] Urine sediment bacteria coun t by microscopy (number/high power field)Ordered By: Ayaz Hinton on 10-01-2024 Bacteria LM.HPF (Urine sed) [#/Area] 1 /[HPF] None Seen [facility] Urine specific gravity measu rementOrdered By: Ayaz Hinton on 10-01-2024 Specific gravity (U) [Rel density] 1.010 1.002-1.030 [facility] Urine urobilinogen measureme ntOrdered By: Ayaz Hinton on 10-01-2024 Urobilinogen Ql (U) Normal mg/dl Normal [facility] White blood cell (WBC) count Ordered By: Ayaz Hinton on 10-01-2024 WBC (Bld) [#/Vol] 9.5 10*3/uL 4.4-11.0 [facility] White blood cell countOrdere d By: Ayaz Hinton on 10-01-2024 White blood cell count 10-25 SEEN /hpf 0-5 [facility] Absolute lymphocyte countOrd ered By: Zackary Lyon on 09-06-2024 Lymphocytes Auto (Unsp spec) [#/Vol] 1.76 10*3/uL 0.83-4.51 [facility] Anion gap in Serum or Plasma Ordered By: Zackary Lyon on 09-06-2024 Anion gap [Moles/Vol] 11 mmol/L 5-15 [facility] Automated lymphocyte count a s percentage of total leukocytesOrdered By: Zackary Lyon on 09-06-2024 Lymphocytes/100 WBC Auto (Unsp spec) 26.3 % 19-41 [facility] BUN/creatinine ratioOrdered By: Zackary Lyno on 09-06-2024 Urea nitrogen/Creatinine [Mass ratio] 40.3 mg/mg High 10-20 [facility] Basophil percentageOrdered B y: Zackary Lyon on 09-06-2024 Basophils/100 WBC (Bld) 1.0 % 0-1 [facility] Bilirubin, totalOrdered By: Zackary Lyon on 09-06-2024 Bilirubin [Mass/Vol] 0.16 mg/dL 0.00-1.30 [facility] Carbon dioxide, total [Moles /volume] in Central venous bloodOrdered By: Zackary Lyon on 09-06-2024 CO2 [Moles/Vol] 25.0 mmol/L 21.0-32.0 [facility] Chloride assayOrdered By: Jesse Lyon on 09-06-2024 Chloride [Moles/Vol] 101 mmol/L 98-108 [facility] Eosinophil percentageOrdered By: Zackary Lyon 09-06-2024 Eosinophils/100 WBC (Bld) 5.2 % High 0-5 [facility] Erythrocyte distribution wid th ratioOrdered By: Zackary Lyon on 09-06-2024 Erythrocyte distribution width (RBC) [Ratio] 12.9 % 11.6-14.6 [facility] Erythrocyte distribution wid th standard deviationOrdered By: Zackary Lyon on 09-06-2024 Erythrocyte distribution width (RBC) [Ratio] 44.5 fl High 35.1-43.9 [facility] Glomerular filtration rate ( GFR) estimation/1.73 sq m using serum, plasma, or whole bOrdered By: Zackary Lyon on 09-06-2024 GFR/1.73 sq M.predicted among non-blacks MDRD (S/P/Bld) [Vol rate/Area] 68 mL/min/{1.73_m2} >60 [facility] Hematocrit Auto (Bld) [Volum e fraction]Ordered By: Zackary Lyon 09-06-2024 Hematocrit (Bld) [Volume fraction] 29.8 % Low 37-47 [facility] Hemoglobin measurementOrdere d By: Zackary Lyon 09-06-2024 Hemoglobin (Bld) [Mass/Vol] 9.4 g/dL Low 12.0-15.0 [facility] Immature granulocytes/100 WB C Auto (Bld)Ordered By: Zackary Lyon on 09-06-2024 Immature granulocytes/100 WBC (Bld) 0.400 % 0.0-0.9 [facility] MCV (mean corpuscular volume ) determinationOrdered By: Zackary Lyon 09-06-2024 MCV (RBC) [Entitic vol] 93.7 fL 81-99 [facility] Mean corpuscular hemoglobin (MCH) determinationOrdered By: Zackary Lyon 09-06-2024 MCH (RBC) [Entitic mass] 29.6 pg 27.0-32.0 [facility] Monocyte percentageOrdered B y: Zackary Lyon on 09-06-2024 Monocytes/100 WBC (Bld) 10.6 % High 0-10 [facility] Neutrophil percentageOrdered By: Zackary Lyon on 09-06-2024 Neutrophils/100 WBC (Bld) 56.5 % 47-70 [facility] No Panel InformationOrdered By: Jessealex Brooksmonicasalvador on 09-06-2024 19 U/L <32 [facility] Platelet countOrdered By: Jesse mellynataly Brooksmonicasalvador on 09-06-2024 Platelets (Bld) [#/Vol] 337 10*3/uL 150-450 [facility] Potassium measurement (mass/ volume)Ordered By: Jessealex Lyon on 09-06-2024 Potassium (Unsp spec) [Mass/Vol] 4.3 mmol/L 3.3-5.1 [facility] RBC Auto (Bld) [#/Vol]Ordere d By: Jesseyariellouisnataly Brooksmonicasalvador on 09-06-2024 RBC (Bld) [#/Vol] 3.18 10*6/uL Low 4.2-5.4 [facility] Serum creatinine measurement (mass/volume)Ordered By: Zackary Lyon on 09-06-2024 Creatinine [Mass/Vol] 0.83 mg/dL 0.70-1.20 [facility] Serum globulin measurementOr dered By: Zackary Lyon 09-06-2024 Globulin (S) [Mass/Vol] 2.7 g/dL 2.2-4.2 [facility] Serum glucose measurement (m ass/volume)Ordered By: Zackary Lyon on 09-06-2024 Glucose [Mass/Vol] 88 mg/dL 70-99 [facility] Serum or plasma alanine clifton otransferase (ALT) measurementOrdered By: Jessealex Lyon on 09-06-2024 ALT [Catalytic activity/Vol] 11 U/L <35 [facility] Serum or plasma albumin manuel urement (mass/volume)Ordered By: Zackary Lyon 09-06-2024 Albumin [Mass/Vol] 3.5 g/dL 3.4-4.8 [facility] Serum or plasma albumin/glob ulin mass ratioOrdered By: Zackary Toddmonicasalvador on 09-06-2024 Albumin/Globulin [Mass ratio] 1.3 {ratio} 0.9-2.4 [facility] Serum or plasma alkaline bibi sphatase measurementOrdered By: Zackary Toddmonicasalvador on 09-06-2024 ALP [Catalytic activity/Vol] 60 U/L 35-104 [facility] Serum or plasma calcium manuel urement (mass/volume)Ordered By: Jesseyariellouisnataly Brooksmonicasalvador on 09-06-2024 Calcium [Mass/Vol] 10.0 mg/dL 7.6-11.0 [facility] Serum or plasma urea nitroge n measurement (mass/volume)Ordered By: Jesseyariellouisnataly Brooksmonicasalvador on 09-06-2024 Urea nitrogen [Mass/Vol] 33 mg/dL High 4-19 [facility] Sodium levelOrdered By: Yohannes navarro Toddmoincasalvador on 09-06-2024 Sodium [Moles/Vol] 137 mmol/L 133-145 [facility] Total proteinOrdered By: James mason Toddletty on 09-06-2024 Protein [Mass/Vol] 6.1 g/dL 5.9-8.4 [facility] White blood cell (WBC) count Ordered By: Zackary Lyon on 09-06-2024 WBC (Bld) [#/Vol] 6.7 10*3/uL 4.4-11.0 [facility] Absolute lymphocyte countOrd ered By: Juan José Thorpe on 09-03-2024 Lymphocytes Auto (Unsp spec) [#/Vol] 1.68 10*3/uL 0.83-4.51 [facility] Anion gap in Serum or Plasma Ordered By: Juan José Thorpe on 09-03-2024 Anion gap [Moles/Vol] 14 mmol/L 5-15 [facility] Automated lymphocyte count a s percentage of total leukocytesOrdered By: Juan José Thorpe on 09-03-2024 Lymphocytes/100 WBC Auto (Unsp spec) 23.3 % 19-41 [facility] BUN/creatinine ratioOrdered By: Juan José Thorpe on 09-03-2024 Urea nitrogen/Creatinine [Mass ratio] 26.1 mg/mg High - [facility] Basic Metabolic Profile (BMP )on 09-03-2024 BUN/CRE 26.1 RATIO High 02-28 [facility] Comment on above: Performed By: #### L 500.2500, L100.0100 ####[facility] [address] [place], [address] Calcium [Mass/Vol] 9.5 mg/dL Normal 7.6-11.0 [facility] Comment on above: Performed By: #### L 500.2500, L100.0100 ####[facility] [address] [place], [address] Chloride [Moles/Vol] 102 mmol/L Normal 98-108 [facility] Comment on above: Performed By: #### L 500.2500, L100.0100 ####[facility] [address] [place], [address] CO2 [Moles/Vol] 23.3 mmol/L Normal 21.0-32.0 [facility] Comment on above: Performed By: #### L 500.2500, L100.0100 ####[facility] [address] [place], [address] Creatinine [Mass/Vol] 0.78 mg/dL Normal 0.70-1.20 [facility] Comment on above: Performed By: #### L 500.2500, L100.0100 ####[facility] [address] [place], [address] ECRCL 47.90 ml/min Low 50-250 [facility] Comment on above: Performed By: #### L 500.2500, L100.0100 ####[facility] [address] [place], [address] GAP 14 Normal 5-15 [facility] Comment on above: Performed By: #### L 500.2500, L100.0100 ####[facility] [address] [place], [address] GFR/1.73 sq M.predicted among non-blacks MDRD (S/P/Bld) [Vol rate/Area] 73 mL/min/{1.73_m2} Normal >60 [facility] Comment on above: Result Comment: mL/m in/1.73m2 CKD-EPI Creatinine Equation (2020) Performed By: #### L 500.2500, L100.0100 ####[facility] [address] [place], [address] Glucose [Mass/Vol] 113 mg/dL High 70-99 [facility] Comment on above: Performed By: #### L 500.2500, L100.0100 ####[facility] [address] [place], [address] Potassium [Moles/Vol] 3.2 mmol/L Low 3.3-5.1 [facility] Comment on above: Performed By: #### L 500.2500, L100.0100 ####[facility] [address] [place], [address] Sodium [Moles/Vol] 139 mmol/L Normal 133-145 [facility] Comment on above: Performed By: #### L 500.2500, L100.0100 ####[facility] [address] [place], [address] Urea nitrogen [Mass/Vol] 20 mg/dL High 4-19 [facility] Comment on above: Performed By: #### L 500.2500, L100.0100 ####[facility] [address] [place], [address] Basophil percentageOrdered B y: Juan José Thorpe on 09-03-2024 Basophils/100 WBC (Bld) 0.8 % 0-1 [facility] CBC W/Diff, Automatedon 04-2 Absolute Lymph 1.68 X10 3/uL Normal 0.83-4.51 [facility] Comment on above: Performed By: #### L 500.2500, L100.0100 ####[facility] [address] [place], [address] Absolute Neut 4.3 X10 3/uL Normal 2.0-7.7 [facility] Comment on above: Performed By: #### L 500.2500, L100.0100 ####[facility] [address] [place], [address] Basophils/100 WBC (Bld) 0.8 % Normal 0-1 [facility] Comment on above: Performed By: #### L 500.2500, L100.0100 ####[facility] [address] [place], [address] Eosinophils/100 WBC (Bld) 6.9 % High 0-5 [facility] Comment on above: Performed By: #### L 500.2500, L100.0100 ####[facility] [address] [place], [address] Erythrocyte distribution width (RBC) [Ratio] 13.0 % Normal 11.6-14.6 [facility] Comment on above: Performed By: #### L 500.2500, L100.0100 ####[facility] [address] [place], [address] Hematocrit (Bld) [Volume fraction] 30.7 % Low 37-47 [facility] Comment on above: Performed By: #### L 500.2500, L100.0100 ####[facility] [address] [place], [address] Hemoglobin (Bld) [Mass/Vol] 9.7 g/dL Low 12.0-15.0 [facility] Comment on above: Performed By: #### L 500.2500, L100.0100 ####[facility] [address] [place], [address] IG% 0.400 Normal 0.0-0.9 [facility] Comment on above: Result Comment: IG% - Immature Granulocytes (promyelocytes, myelocytes andmetamyelocytes) > 1% indicates that a LEFT SHIFT is Present. Performed By: #### L 500.2500, L100.0100 ####[facility] [address] [place], [address] Lymphocytes/100 WBC (Bld) 23.3 % Normal 19-41 [facility] Comment on above: Performed By: #### L 500.2500, L100.0100 ####[facility] [address] [place], [address] MCH (RBC) [Entitic mass] 29.3 pg Normal 27.0-32.0 [facility] Comment on above: Performed By: #### L 500.2500, L100.0100 ####[facility] [address] [place], [address] MCHC (RBC) [Mass/Vol] 31.6 g/dL Low 32-36 [facility] Comment on above: Performed By: #### L 500.2500, L100.0100 ####[facility] [address] [place], [address] MCV (RBC) [Entitic vol] 92.7 fL Normal 81-99 [facility] Comment on above: Performed By: #### L 500.2500, L100.0100 ####[facility] [address] [place], [address] Monocytes/100 WBC (Bld) 8.2 % Normal 0-10 [facility] Comment on above: Performed By: #### L 500.2500, L100.0100 ####[facility] [address] [place], [address] Neutrophils/100 WBC (Bld) 60.4 % Normal 47-70 [facility] Comment on above: Performed By: #### L 500.2500, L100.0100 ####[facility] [address] [place], [address] Nucleated RBC (Bld) [#/Vol] 0 10*3/uL Normal 0-5 [facility] Comment on above: Performed By: #### L 500.2500, L100.0100 ####[facility] [address] [place], [address] Platelet mean volume (Bld) [Entitic vol] 9.9 fL Normal 6.2-12.0 [facility] Comment on above: Performed By: #### L 500.2500, L100.0100 ####[facility] [address] [place], [address] Platelets (Bld) [#/Vol] 302 10*3/uL Normal 150-450 [facility] Comment on above: Performed By: #### L 500.2500, L100.0100 ####[facility] [address] [place], [address] RBC (Bld) [#/Vol] 3.31 10*6/uL Low 4.2-5.4 [facility] Comment on above: Performed By: #### L 500.2500, L100.0100 ####[facility] [address] [place], [address] RDW SD 44.4 fl High 35.1-43.9 [facility] Comment on above: Performed By: #### L 500.2500, L100.0100 ####[facility] [address] [place], [address] WBC (Bld) [#/Vol] 7.2 10*3/uL Normal 4.4-11.0 [facility] Comment on above: Performed By: #### L 500.2500, L100.0100 ####[facility] [address] [place], [address] Carbon dioxide, total [Moles /volume] in Central venous bloodOrdered By: Juan José Thorpe on 09-03-2024 CO2 [Moles/Vol] 23.3 mmol/L 21.0-32.0 [facility] Chloride assayOrdered By: Freddie Thorpe on 09-03-2024 Chloride [Moles/Vol] 102 mmol/L 98-108 [facility] Eosinophil percentageOrdered By: Juan José Thorpe on 09-03-2024 Eosinophils/100 WBC (Bld) 6.9 % High 0-5 [facility] Erythrocyte distribution wid th ratioOrdered By: Juan José Thorpe on 09-03-2024 Erythrocyte distribution width (RBC) [Ratio] 13.0 % 11.6-14.6 [facility] Erythrocyte distribution wid th standard deviationOrdered By: Juan José Thorpe on 09-03-2024 Erythrocyte distribution width (RBC) [Ratio] 44.4 fl High 35.1-43.9 [facility] Glomerular filtration rate ( GFR) estimation/1.73 sq m using serum, plasma, or whole bOrdered By: Juan José Thorpe on 09-03-2024 GFR/1.73 sq M.predicted among non-blacks MDRD (S/P/Bld) [Vol rate/Area] 73 mL/min/{1.73_m2} >60 [facility] Hematocrit Auto (Bld) [Volum e fraction]Ordered By: Juan José Thorpe on 09-03-2024 Hematocrit (Bld) [Volume fraction] 30.7 % Low 37-47 [facility] Hemoglobin measurementOrdere d By: Juan José Thorpe on 09-03-2024 Hemoglobin (Bld) [Mass/Vol] 9.7 g/dL Low 12.0-15.0 [facility] Immature granulocytes/100 WB C Auto (Bld)Ordered By: Juan José Thorpe on 09-03-2024 Immature granulocytes/100 WBC (Bld) 0.400 % 0.0-0.9 [facility] MCV (mean corpuscular volume ) determinationOrdered By: Juan José Thorpe on 09-03-2024 MCV (RBC) [Entitic vol] 92.7 fL 81-99 [facility] Mean corpuscular hemoglobin (MCH) determinationOrdered By: Juan José Thorpe on 09-03-2024 MCH (RBC) [Entitic mass] 29.3 pg 27.0-32.0 [facility] Monocyte percentageOrdered B y: Juan José Thorpe on 09-03-2024 Monocytes/100 WBC (Bld) 8.2 % 0-10 [facility] Neutrophil percentageOrdered By: Juan José Thorpe on 09-03-2024 Neutrophils/100 WBC (Bld) 60.4 % 47-70 [facility] Platelet countOrdered By: Freddie Thorpe on 09-03-2024 Platelets (Bld) [#/Vol] 302 10*3/uL 150-450 [facility] Potassium measurement (mass/ volume)Ordered By: Juan José Thorpe on 09-03-2024 Potassium (Unsp spec) [Mass/Vol] 3.2 mmol/L Low 3.3-5.1 [facility] RBC Auto (Bld) [#/Vol]Ordere d By: Juan José Thorpe on 09-03-2024 RBC (Bld) [#/Vol] 3.31 10*6/uL Low 4.2-5.4 [facility] Serum creatinine measurement (mass/volume)Ordered By: Juan José Thorpe on 09-03-2024 Creatinine [Mass/Vol] 0.78 mg/dL 0.70-1.20 [facility] Serum glucose measurement (m ass/volume)Ordered By: Juan José Thorpe on 09-03-2024 Glucose [Mass/Vol] 113 mg/dL High 70-99 [facility] Serum or plasma calcium manuel urement (mass/volume)Ordered By: Juan José Thorpe on 09-03-2024 Calcium [Mass/Vol] 9.5 mg/dL 7.6-11.0 [facility] Serum or plasma urea nitroge n measurement (mass/volume)Ordered By: Juan José Thorpe on 09-03-2024 Urea nitrogen [Mass/Vol] 20 mg/dL High 4-19 [facility] Sodium levelOrdered By: Carroll Thorpe on 09-03-2024 Sodium [Moles/Vol] 139 mmol/L 133-145 [facility] White blood cell (WBC) count Ordered By: Juan José Thorpe on 09-03-2024 WBC (Bld) [#/Vol] 7.2 10*3/uL 4.4-11.0 [facility] Bilirubin, totalOrdered By: Juan José Thorpe on 09-02-2024 Bilirubin [Mass/Vol] 0.27 mg/dL 0.00-1.30 [facility] CBC W/Diff, Automatedon 08-11 Absolute Lymph 1.63 X10 3/uL Normal 0.83-4.51 [facility] Comment on above: Performed By: #### L 500.4050, L501.2300, L501.5200, L100.0100 ####[facility] [address] [place], [address] Absolute Neut 6.4 X10 3/uL Normal 2.0-7.7 [facility] Comment on above: Performed By: #### L 500.4050, L501.2300, L501.5200, L100.0100 ####[facility] [address] [place], [address] Basophils/100 WBC (Bld) 0.5 % Normal 0-1 [facility] Comment on above: Performed By: #### L 500.4050, L501.2300, L501.5200, L100.0100 ####[facility] [address] [place], [address] Eosinophils/100 WBC (Bld) 3.9 % Normal 0-5 [facility] Comment on above: Performed By: #### L 500.4050, L501.2300, L501.5200, L100.0100 ####[facility] [address] [place], [address] Erythrocyte distribution width (RBC) [Ratio] 13.1 % Normal 11.6-14.6 [facility] Comment on above: Performed By: #### L 500.4050, L501.2300, L501.5200, L100.0100 ####[facility] [address] [place], [address] Hematocrit (Bld) [Volume fraction] 31.2 % Low 37-47 [facility] Comment on above: Performed By: #### L 500.4050, L501.2300, L501.5200, L100.0100 ####[facility] [address] [place], [address] Hemoglobin (Bld) [Mass/Vol] 10.0 g/dL Low 12.0-15.0 [facility] Comment on above: Performed By: #### L 500.4050, L501.2300, L501.5200, L100.0100 ####[facility] [address] [place], [address] IG% 0.300 Normal 0.0-0.9 [facility] Comment on above: Result Comment: IG% - Immature Granulocytes (promyelocytes, myelocytes andmetamyelocytes) > 1% indicates that a LEFT SHIFT is Present. Performed By: #### L 500.4050, L501.2300, L501.5200, L100.0100 ####[facility] [address] [place], [address] Lymphocytes/100 WBC (Bld) 17.4 % Low 19-41 [facility] Comment on above: Performed By: #### L 500.4050, L501.2300, L501.5200, L100.0100 ####[facility] [address] [place], [address] MCH (RBC) [Entitic mass] 29.6 pg Normal 27.0-32.0 [facility] Comment on above: Performed By: #### L 500.4050, L501.2300, L501.5200, L100.0100 ####[facility] [address] [place], [address] MCHC (RBC) [Mass/Vol] 32.1 g/dL Normal 32-36 [facility] Comment on above: Performed By: #### L 500.4050, L501.2300, L501.5200, L100.0100 ####[facility] [address] [place], [address] MCV (RBC) [Entitic vol] 92.3 fL Normal 81-99 [facility] Comment on above: Performed By: #### L 500.4050, L501.2300, L501.5200, L100.0100 ####[facility] [address] [place], [address] Monocytes/100 WBC (Bld) 9.6 % Normal 0-10 [facility] Comment on above: Performed By: #### L 500.4050, L501.2300, L501.5200, L100.0100 ####[facility] [address] [place], [address] Neutrophils/100 WBC (Bld) 68.3 % Normal 47-70 [facility] Comment on above: Performed By: #### L 500.4050, L501.2300, L501.5200, L100.0100 ####[facility] [address] [place], [address] Nucleated RBC (Bld) [#/Vol] 0 10*3/uL Normal 0-5 [facility] Comment on above: Performed By: #### L 500.4050, L501.2300, L501.5200, L100.0100 ####[facility] [address] [place], [address] Platelet mean volume (Bld) [Entitic vol] 9.5 fL Normal 6.2-12.0 [facility] Comment on above: Performed By: #### L 500.4050, L501.2300, L501.5200, L100.0100 ####[facility] [address] [place], [address] Platelets (Bld) [#/Vol] 314 10*3/uL Normal 150-450 [facility] Comment on above: Performed By: #### L 500.4050, L501.2300, L501.5200, L100.0100 ####[facility] [address] [place], [address] RBC (Bld) [#/Vol] 3.38 10*6/uL Low 4.2-5.4 [facility] Comment on above: Performed By: #### L 500.4050, L501.2300, L501.5200, L100.0100 ####[facility] [address] [place], [address] RDW SD 44.2 fl High 35.1-43.9 [facility] Comment on above: Performed By: #### L 500.4050, L501.2300, L501.5200, L100.0100 ####[facility] [address] [place], [address] WBC (Bld) [#/Vol] 9.4 10*3/uL Normal 4.4-11.0 [facility] Comment on above: Performed By: #### L 500.4050, L501.2300, L501.5200, L100.0100 ####[facility] [address] [place], [address] Comprehensive Metabolic Prof ilon 09-02-2024 Albumin [Mass/Vol] 3.6 g/dL Normal 3.4-4.8 [facility] Comment on above: Performed By: #### L 500.4050, L501.2300, L501.5200, L100.0100 ####[facility] [address] [place], [address] Albumin/Globulin [Mass ratio] 1.3 {ratio} Normal 0.9-2.4 [facility] Comment on above: Performed By: #### L 500.4050, L501.2300, L501.5200, L100.0100 ####[facility] [address] [place], [address] ALK PHOS 62 U/L Normal 35-104 [facility] Comment on above: Performed By: #### L 500.4050, L501.2300, L501.5200, L100.0100 ####[facility] [address] [place], [address] ALT [Catalytic activity/Vol] 9 U/L Normal <=34 [facility] Comment on above: Performed By: #### L 500.4050, L501.2300, L501.5200, L100.0100 ####[facility] [address] [place], [address] AST [Catalytic activity/Vol] 23 U/L Normal <=31 [facility] Comment on above: Performed By: #### L 500.4050, L501.2300, L501.5200, L100.0100 ####[facility] [address] [place], [address] Bilirubin [Mass/Vol] 0.27 mg/dL Normal 0.00-1.30 [facility] Comment on above: Performed By: #### L 500.4050, L501.2300, L501.5200, L100.0100 ####[facility] [address] [place], [address] BUN/CRE 28.3 RATIO High 10-20 [facility] Comment on above: Performed By: #### L 500.4050, L501.2300, L501.5200, L100.0100 ####[facility] [address] [place], [address] Calcium [Mass/Vol] 9.8 mg/dL Normal 7.6-11.0 [facility] Comment on above: Performed By: #### L 500.4050, L501.2300, L501.5200, L100.0100 ####[facility] [address] [place], [address] Chloride [Moles/Vol] 100 mmol/L Normal 98-108 [facility] Comment on above: Performed By: #### L 500.4050, L501.2300, L501.5200, L100.0100 ####[facility] [address] [place], [address] CO2 [Moles/Vol] 27.2 mmol/L Normal 21.0-32.0 [facility] Comment on above: Performed By: #### L 500.4050, L501.2300, L501.5200, L100.0100 ####[facility] [address] [place], [address] Creatinine [Mass/Vol] 0.82 mg/dL Normal 0.70-1.20 [facility] Comment on above: Performed By: #### L 500.4050, L501.2300, L501.5200, L100.0100 ####[facility] [address] [place], [address] ECRCL 46.73 ml/min Low 50-250 [facility] Comment on above: Performed By: #### L 500.4050, L501.2300, L501.5200, L100.0100 ####[facility] [address] [place], [address] GAP 11 Normal 5-15 [facility] Comment on above: Performed By: #### L 500.4050, L501.2300, L501.5200, L100.0100 ####[facility] [address] [place], [address] GFR/1.73 sq M.predicted among non-blacks MDRD (S/P/Bld) [Vol rate/Area] 69 mL/min/{1.73_m2} Normal >60 [facility] Comment on above: Result Comment: mL/m in/1.73m2 CKD-EPI Creatinine Equation (2020) Performed By: #### L 500.4050, L501.2300, L501.5200, L100.0100 ####[facility] [address] [place], [address] Globulin (S) [Mass/Vol] 2.7 g/dL Normal 2.2-4.2 [facility] Comment on above: Performed By: #### L 500.4050, L501.2300, L501.5200, L100.0100 ####[facility] [address] [place], [address] Glucose [Mass/Vol] 108 mg/dL High 70-99 [facility] Comment on above: Performed By: #### L 500.4050, L501.2300, L501.5200, L100.0100 ####[facility] [address] [place], [address] Potassium [Moles/Vol] 3.9 mmol/L Normal 3.3-5.1 [facility] Comment on above: Performed By: #### L 500.4050, L501.2300, L501.5200, L100.0100 ####[facility] [address] [place], [address] Sodium [Moles/Vol] 139 mmol/L Normal 133-145 [facility] Comment on above: Performed By: #### L 500.4050, L501.2300, L501.5200, L100.0100 ####[facility] [address] [place], [address] T PROT 6.3 g/dL Normal 5.9-8.4 [facility] Comment on above: Performed By: #### L 500.4050, L501.2300, L501.5200, L100.0100 ####[facility] [address] [place], [address] Urea nitrogen [Mass/Vol] 23 mg/dL High 4-19 [facility] Comment on above: Performed By: #### L 500.4050, L501.2300, L501.5200, L100.0100 ####[facility] [address] [place], [address] Magnesiumon 09-02-2024 Magnesium [Mass/Vol] 2.1 mg/dL Normal 1.5-2.2 [facility] Comment on above: Performed By: #### L 500.4050, L501.2300, L501.5200, L100.0100 ####[facility] [address] [place], [address] Magnesium measurement (mass/ volume)Ordered By: Juan José Thorpe on 09-02-2024 Magnesium (Unsp spec) [Mass/Vol] 2.1 mg/dL 1.5-2.2 [facility] No Panel InformationOrdered By: Juan José Thorpe on 09-02-2024 23 U/L <32 [facility] Phosphoruson 09-02-2024 Phosphate [Mass/Vol] 4.5 mg/dL Normal 2.7-4.5 [facility] Comment on above: Performed By: #### L 500.4050, L501.2300, L501.5200, L100.0100 ####[facility] [address] [place], [address] Serum globulin measurementOr dered By: Juan José Thorpe on 09-02-2024 Globulin (S) [Mass/Vol] 2.7 g/dL 2.2-4.2 [facility] Serum or plasma alanine clifton otransferase (ALT) measurementOrdered By: Juan José Thorpe on 09-02-2024 ALT [Catalytic activity/Vol] 9 U/L <35 [facility] Serum or plasma albumin manuel urement (mass/volume)Ordered By: Juan José Thorpe on 09-02-2024 Albumin [Mass/Vol] 3.6 g/dL 3.4-4.8 [facility] Serum or plasma albumin/glob ulin mass ratioOrdered By: Juan José Thorpe on 09-02-2024 Albumin/Globulin [Mass ratio] 1.3 {ratio} 0.9-2.4 [facility] Serum or plasma alkaline bibi sphatase measurementOrdered By: Juan José Thorpe on 09-02-2024 ALP [Catalytic activity/Vol] 62 U/L 35-104 [facility] Total proteinOrdered By: Obed Thorpe on 09-02-2024 Protein [Mass/Vol] 6.3 g/dL 5.9-8.4 [facility] Alcohol, Blood (Medical)-Ser umon 09-01-2024 SERUM ETOH < 10.1 Normal <=10.0 [facility] Comment on above: Result Comment: This test is for medical purposes only. The legaldefinition of intoxication varies according to local law. Performed By: #### L 501.9100, L505.5000 ####[facility] [address] [place], [place], [id number] H AND P Exam - [place] 09-01-2024 H&P Exam - Hospitalist Normal [facility] Urine Drug Screen (VISTA)on 09-01-2024 AMPHETAMINES Negative Normal <1000 ng/mL [facility] Comment on above: Performed By: #### L 501.9100, L505.5000 ####[facility] [address] [place], [place], [id number] BARBITIURATES Negative Normal < 200 ng/mL [facility] Comment on above: Performed By: #### L 501.9100, L505.5000 ####[facility] [address] [place], [address] BENZODIAZIPINE Negative Normal < 200 ng/mL [facility] Comment on above: Performed By: #### L 501.9100, L505.5000 ####[facility] [address] [place], [address] BUP Ur Drug Scr Negative Normal < 200 ng/mL [facility] Comment on above: Performed By: #### L 501.9100, L505.5000 ####[facility] [address] [place], [address] COCAINE Negative Normal < 300 ng/mL [facility] Comment on above: Performed By: #### L 501.9100, L505.5000 ####[facility] [address] [place], [address] Fentanyl Negative Normal [facility] Comment on above: Performed By: #### L 501.9100, L505.5000 ####[facility] [address] [place], [address] METHADONE Negative Normal < 300 ng/mL [facility] Comment on above: Performed By: #### L 501.9100, L505.5000 ####[facility] [address] [place], [address] OPIATES Negative Normal < 300 ng/mL [facility] Comment on above: Performed By: #### L 501.9100, L505.5000 ####[facility] [address] [place], [address] OXYCODONE Negative Normal < 100 ng/mL [facility] Comment on above: Performed By: #### L 501.9100, L505.5000 ####[facility] [address] [place], [address] PCP Negative Normal < 25 ng/mL [facility] Comment on above: Performed By: #### L 501.9100, L505.5000 ####[facility] [address] [place], [place], [id number] THC Negative Normal < 50 ng/mL [facility] Comment on above: Performed By: #### L 501.9100, L505.5000 ####[facility] [address] [place], [place], [id number] Absolute lymphocyte countOrd ered By: Layla Craig on 08-31-2024 Lymphocytes Auto (Unsp spec) [#/Vol] 1.52 10*3/uL 0.83-4.51 [facility] Ammoniaon 08-31-2024 Ammonia (P) [Moles/Vol] 19.3 umol/L Normal [facility] Comment on above: Performed By: #### L 100.0100, L503.5510, L500.2500, L500.3400 ####[facility] [address] [place], [place], [id number] Amphetamine detection with 1 000 ng/mL as cutoffOrdered By: Juan José Thorpe on 08-31-2024 Amphetamines Screen method >1000 ng/mL Ql (U) Negative < 200 ng/mL [facility] Anion gap in Serum or Plasma Ordered By: Layla Craig on 08-31-2024 Anion gap [Moles/Vol] 14 mmol/L 5-15 [facility] Automated lymphocyte count a s percentage of total leukocytesOrdered By: Layla Craig on 08-31-2024 Lymphocytes/100 WBC Auto (Unsp spec) 22.0 % 19-41 [facility] BUN/creatinine ratioOrdered By: Layla Craig on 08-31-2024 Urea nitrogen/Creatinine [Mass ratio] 27.1 mg/mg High 10- [facility] Basic Metabolic Profile (BMP )on 08-31-2024 BUN/CRE 31.1 RATIO High 02-28 [facility] Comment on above: Performed By: #### L 100.0100, L503.5510, L500.2500, L500.3400 ####[facility] [address] [place], [address] Calcium [Mass/Vol] 9.9 mg/dL Normal 7.6-11.0 [facility] Comment on above: Performed By: #### L 100.0100, L503.5510, L500.2500, L500.3400 ####[facility] [address] [place], [address] Chloride [Moles/Vol] 97 mmol/L Low 98-108 [facility] Comment on above: Performed By: #### L 100.0100, L503.5510, L500.2500, L500.3400 ####[facility] [address] [place], [address] CO2 [Moles/Vol] 31.0 mmol/L Normal 21.0-32.0 [facility] Comment on above: Performed By: #### L 100.0100, L503.5510, L500.2500, L500.3400 ####[facility] [address] [place], [address] Creatinine [Mass/Vol] 1.06 mg/dL Normal 0.70-1.20 [facility] Comment on above: Performed By: #### L 100.0100, L503.5510, L500.2500, L500.3400 ####[facility] [address] [place], [address] ECRCL 33.21 ml/min Low 50-250 [facility] Comment on above: Performed By: #### L 100.0100, L503.5510, L500.2500, L500.3400 ####[facility] [address] [place], [address] GAP 11 Normal 5-15 [facility] Comment on above: Performed By: #### L 100.0100, L503.5510, L500.2500, L500.3400 ####[facility] [address] [place], [address] GFR/1.73 sq M.predicted among non-blacks MDRD (S/P/Bld) [Vol rate/Area] 51 mL/min/{1.73_m2} Low >60 [facility] Comment on above: Result Comment: mL/m in/1.73m2 CKD-EPI Creatinine Equation (2020) Performed By: #### L 100.0100, L503.5510, L500.2500, L500.3400 ####[facility] [address] [place], [address] Glucose [Mass/Vol] 104 mg/dL High 70-99 [facility] Comment on above: Performed By: #### L 100.0100, L503.5510, L500.2500, L500.3400 ####[facility] [address] [place], [address] Potassium [Moles/Vol] 4.0 mmol/L Normal 3.3-5.1 [facility] Comment on above: Performed By: #### L 100.0100, L503.5510, L500.2500, L500.3400 ####[facility] [address] [place], [address] Sodium [Moles/Vol] 140 mmol/L Normal 133-145 [facility] Comment on above: Performed By: #### L 100.0100, L503.5510, L500.2500, L500.3400 ####[facility] [address] [place], [address] Urea nitrogen [Mass/Vol] 33 mg/dL High 4-19 [facility] Comment on above: Performed By: #### L 100.0100, L503.5510, L500.2500, L500.3400 ####[facility] [address] [place], [address] Basophil percentageOrdered B y: Layla Craig on 08-31-2024 Basophils/100 WBC (Bld) 0.9 % 0-1 [facility] Bilirubin Test strip Ql (U)O rdered By: Scooby Mobley on 08-31-2024 Bilirubin Ql (U) Negative Negative [facility] Bilirubin directOrdered By: Scooby Mobley on 08-31-2024 Bilirubin.direct [Mass/Vol] 0.13 mg/dL 0.00-0.30 [facility] Bilirubin, totalOrdered By: Layla Craig on 08-31-2024 Bilirubin [Mass/Vol] 0.40 mg/dL 0.00-1.30 [facility] Brain without Contraston Brain without Contrast Normal [facility] CBC W/Diff, Automatedon 08-11 Absolute Lymph 1.15 X10 3/uL Normal 0.83-4.51 [facility] Comment on above: Performed By: #### L 100.0100, L503.5510, L500.2500, L500.3400 ####[facility] [address] [place], [address] Absolute Neut 7.5 X10 3/uL Normal 2.0-7.7 [facility] Comment on above: Performed By: #### L 100.0100, L503.5510, L500.2500, L500.3400 ####[facility] [address] [place], [address] Basophils/100 WBC (Bld) 0.7 % Normal 0-1 [facility] Comment on above: Performed By: #### L 100.0100, L503.5510, L500.2500, L500.3400 ####[facility] [address] [place], [address] Eosinophils/100 WBC (Bld) 3.4 % Normal 0-5 [facility] Comment on above: Performed By: #### L 100.0100, L503.5510, L500.2500, L500.3400 ####[facility] [address] [place], [address] Erythrocyte distribution width (RBC) [Ratio] 13.1 % Normal 11.6-14.6 [facility] Comment on above: Performed By: #### L 100.0100, L503.5510, L500.2500, L500.3400 ####[facility] [address] [place], [address] Hematocrit (Bld) [Volume fraction] 32.6 % Low 37-47 [facility] Comment on above: Performed By: #### L 100.0100, L503.5510, L500.2500, L500.3400 ####[facility] [address] [place], [address] Hemoglobin (Bld) [Mass/Vol] 10.4 g/dL Low 12.0-15.0 [facility] Comment on above: Performed By: #### L 100.0100, L503.5510, L500.2500, L500.3400 ####[facility] [address] [place], [address] IG% 0.600 Normal 0.0-0.9 [facility] Comment on above: Result Comment: IG% - Immature Granulocytes (promyelocytes, myelocytes andmetamyelocytes) > 1% indicates that a LEFT SHIFT is Present. Performed By: #### L 100.0100, L503.5510, L500.2500, L500.3400 ####[facility] [address] [place], [address] Lymphocytes/100 WBC (Bld) 11.7 % Low 19-41 [facility] Comment on above: Performed By: #### L 100.0100, L503.5510, L500.2500, L500.3400 ####[facility] [address] [place], [address] MCH (RBC) [Entitic mass] 29.5 pg Normal 27.0-32.0 [facility] Comment on above: Performed By: #### L 100.0100, L503.5510, L500.2500, L500.3400 ####[facility] [address] [place], [address] MCHC (RBC) [Mass/Vol] 31.9 g/dL Low 32-36 [facility] Comment on above: Performed By: #### L 100.0100, L503.5510, L500.2500, L500.3400 ####[facility] [address] [place], [address] MCV (RBC) [Entitic vol] 92.6 fL Normal 81-99 [facility] Comment on above: Performed By: #### L 100.0100, L503.5510, L500.2500, L500.3400 ####[facility] [address] [place], [address] Monocytes/100 WBC (Bld) 7.9 % Normal 0-10 [facility] Comment on above: Performed By: #### L 100.0100, L503.5510, L500.2500, L500.3400 ####[facility] [address] [place], [address] Neutrophils/100 WBC (Bld) 75.7 % High 47-70 [facility] Comment on above: Performed By: #### L 100.0100, L503.5510, L500.2500, L500.3400 ####[facility] [address] [place], [address] Nucleated RBC (Bld) [#/Vol] 0 10*3/uL Normal 0-5 [facility] Comment on above: Performed By: #### L 100.0100, L503.5510, L500.2500, L500.3400 ####[facility] [address] [place], [address] Platelet mean volume (Bld) [Entitic vol] 9.7 fL Normal 6.2-12.0 [facility] Comment on above: Performed By: #### L 100.0100, L503.5510, L500.2500, L500.3400 ####[facility] [address] [place], [address] Platelets (Bld) [#/Vol] 320 10*3/uL Normal 150-450 [facility] Comment on above: Performed By: #### L 100.0100, L503.5510, L500.2500, L500.3400 ####[facility] [address] [place], [address] RBC (Bld) [#/Vol] 3.52 10*6/uL Low 4.2-5.4 [facility] Comment on above: Performed By: #### L 100.0100, L503.5510, L500.2500, L500.3400 ####[facility] [address] [place], [address] RDW SD 44.3 fl High 35.1-43.9 [facility] Comment on above: Performed By: #### L 100.0100, L503.5510, L500.2500, L500.3400 ####[facility] [address] [place], [address] WBC (Bld) [#/Vol] 9.9 10*3/uL Normal 4.4-11.0 [facility] Comment on above: Performed By: #### L 100.0100, L503.5510, L500.2500, L500.3400 ####[facility] [address] [place], [address] Absolute Lymph 1.52 X10 3/uL Normal 0.83-4.51 [facility] Comment on above: Performed By: #### L 100.0100, L500.4100, L500.4050 ####[facility] [address] [place], [address] Absolute Neut 4.5 X10 3/uL Normal 2.0-7.7 [facility] Comment on above: Performed By: #### L 100.0100, L500.4100, L500.4050 ####[facility] [address] [place], [address] Basophils/100 WBC (Bld) 0.9 % Normal 0-1 [facility] Comment on above: Performed By: #### L 100.0100, L500.4100, L500.4050 ####[facility] [address] [place], [address] Eosinophils/100 WBC (Bld) 2.5 % Normal 0-5 [facility] Comment on above: Performed By: #### L 100.0100, L500.4100, L500.4050 ####[facility] [address] [place], [address] Erythrocyte distribution width (RBC) [Ratio] 13.1 % Normal 11.6-14.6 [facility] Comment on above: Performed By: #### L 100.0100, L500.4100, L500.4050 ####[facility] [facility] [address] [place], [address] Hematocrit (Bld) [Volume fraction] 32.2 % Low 37-47 [facility] Comment on above: Performed By: #### L 100.0100, L500.4100, L500.4050 ####[facility] [address] [place], [address] Hemoglobin (Bld) [Mass/Vol] 10.3 g/dL Low 12.0-15.0 [facility] Comment on above: Performed By: #### L 100.0100, L500.4100, L500.4050 ####[facility] [address] [place], [address] IG% 0.400 Normal 0.0-0.9 [facility] Comment on above: Result Comment: IG% - Immature Granulocytes (promyelocytes, myelocytes andmetamyelocytes) > 1% indicates that a LEFT SHIFT is Present. Performed By: #### L 100.0100, L500.4100, L500.4050 ####[facility] [address] [place], [address] Lymphocytes/100 WBC (Bld) 22.0 % Normal 19-41 [facility] Comment on above: Performed By: #### L 100.0100, L500.4100, L500.4050 ####[facility] [address] [place], [address] MCH (RBC) [Entitic mass] 29.9 pg Normal 27.0-32.0 [facility] Comment on above: Performed By: #### L 100.0100, L500.4100, L500.4050 ####[facility] [address] [place], [address] MCHC (RBC) [Mass/Vol] 32.0 g/dL Normal 32-36 [facility] Comment on above: Performed By: #### L 100.0100, L500.4100, L500.4050 ####[facility] [address] [place], [address] MCV (RBC) [Entitic vol] 93.3 fL Normal 81-99 [facility] Comment on above: Performed By: #### L 100.0100, L500.4100, L500.4050 ####[facility] [address] [place], [address] Monocytes/100 WBC (Bld) 9.4 % Normal 0-10 [facility] Comment on above: Performed By: #### L 100.0100, L500.4100, L500.4050 ####[facility] [address] [place], [address] Neutrophils/100 WBC (Bld) 64.8 % Normal 47-70 [facility] Comment on above: Performed By: #### L 100.0100, L500.4100, L500.4050 ####[facility] [address] [place], [address] Nucleated RBC (Bld) [#/Vol] 0 10*3/uL Normal 0-5 [facility] Comment on above: Performed By: #### L 100.0100, L500.4100, L500.4050 ####[facility] [address] [place], [address] Platelet mean volume (Bld) [Entitic vol] 9.6 fL Normal 6.2-12.0 [facility] Comment on above: Performed By: #### L 100.0100, L500.4100, L500.4050 ####[facility] [address] [place], [address] Platelets (Bld) [#/Vol] 338 10*3/uL Normal 150-450 [facility] Comment on above: Performed By: #### L 100.0100, L500.4100, L500.4050 ####[facility] [address] [place], [address] RBC (Bld) [#/Vol] 3.45 10*6/uL Low 4.2-5.4 [facility] Comment on above: Performed By: #### L 100.0100, L500.4100, L500.4050 ####[facility] [address] [place], [address] RDW SD 44.6 fl High 35.1-43.9 [facility] Comment on above: Performed By: #### L 100.0100, L500.4100, L500.4050 ####[facility] [address] [place], [address] WBC (Bld) [#/Vol] 6.9 10*3/uL Normal 4.4-11.0 [facility] Comment on above: Performed By: #### L 100.0100, L500.4100, L500.4050 ####[facility] [address] [place], [address] Calculated very low density lipoprotein (VLDL) cholesterol measurementOrdered By: Layla Craig on 08-31-2024 Calculated very low density lipoprotein (VLDL) cholesterol measurement 13 mg/dL 5-40 [facility] Carbon dioxide, total [Moles /volume] in Central venous bloodOrdered By: Layla Craig on 08-31-2024 CO2 [Moles/Vol] 27.1 mmol/L 21.0-32.0 [facility] Chloride assayOrdered By: Rm Craig on 08-31-2024 Chloride [Moles/Vol] 94 mmol/L Low 98-108 [facility] Comprehensive Metabolic Prof ilon 08-31-2024 Albumin [Mass/Vol] 3.6 g/dL Normal 3.4-4.8 [facility] Comment on above: Order Comment: Comme nts: NPO at [place] prior to lipid panel Performed By: #### L 100.0100, L500.4100, L500.4050 ####[facility] [address] [place], [address] Albumin/Globulin [Mass ratio] 1.2 {ratio} Normal 0.9-2.4 [facility] Comment on above: Order Comment: Comme nts: NPO at [place] prior to lipid panel Performed By: #### L 100.0100, L500.4100, L500.4050 ####[facility] [address] [place], [address] ALK PHOS 69 U/L Normal 35-104 [facility] Comment on above: Order Comment: Comme nts: NPO at [place] prior to lipid panel Performed By: #### L 100.0100, L500.4100, L500.4050 ####[facility] [address] [place], [address] ALT [Catalytic activity/Vol] 5 U/L Normal <=34 [facility] Comment on above: Order Comment: Comme nts: NPO at [place] prior to lipid panel Performed By: #### L 100.0100, L500.4100, L500.4050 ####[facility] [address] [place], [address] AST [Catalytic activity/Vol] 24 U/L Normal <=31 [facility] Comment on above: Order Comment: Comme nts: NPO at [place] prior to lipid panel Performed By: #### L 100.0100, L500.4100, L500.4050 ####[facility] [address] [place], [address] Bilirubin [Mass/Vol] 0.40 mg/dL Normal 0.00-1.30 [facility] Comment on above: Order Comment: Comme nts: NPO at [place] prior to lipid panel Performed By: #### L 100.0100, L500.4100, L500.4050 ####[facility] [address] [place], [address] BUN/CRE 27.1 RATIO High 10-20 [facility] Comment on above: Order Comment: Comme nts: NPO at [place] prior to lipid panel Performed By: #### L 100.0100, L500.4100, L500.4050 ####[facility] [address] [place], [address] Calcium [Mass/Vol] 10.0 mg/dL Normal 7.6-11.0 [facility] Comment on above: Order Comment: Comme nts: NPO at [place] prior to lipid panel Performed By: #### L 100.0100, L500.4100, L500.4050 ####[facility] [address] [place], [address] Chloride [Moles/Vol] 94 mmol/L Low 98-108 [facility] Comment on above: Order Comment: Comme nts: NPO at [place] prior to lipid panel Performed By: #### L 100.0100, L500.4100, L500.4050 ####[facility] [address] [place], [address] CO2 [Moles/Vol] 27.1 mmol/L Normal 21.0-32.0 [facility] Comment on above: Order Comment: Comme nts: NPO at [place] prior to lipid panel Performed By: #### L 100.0100, L500.4100, L500.4050 ####[facility] [address] [place], [address] Creatinine [Mass/Vol] 0.94 mg/dL Normal 0.70-1.20 [facility] Comment on above: Order Comment: Comme nts: NPO at [place] prior to lipid panel Performed By: #### L 100.0100, L500.4100, L500.4050 ####[facility] [address] [place], [address] ECRCL 37.00 ml/min Low 50-250 [facility] Comment on above: Order Comment: Comme nts: NPO at [place] prior to lipid panel Performed By: #### L 100.0100, L500.4100, L500.4050 ####[facility] [address] [place], [address] GAP 14 Normal 5-15 [facility] Comment on above: Order Comment: Comme nts: NPO at [place] prior to lipid panel Performed By: #### L 100.0100, L500.4100, L500.4050 ####[facility] [address] [place], [address] GFR/1.73 sq M.predicted among non-blacks MDRD (S/P/Bld) [Vol rate/Area] 59 mL/min/{1.73_m2} Low >60 [facility] Comment on above: Order Comment: Comme nts: NPO at [place] prior to lipid panel Result Comment: mL/m in/1.73m2 CKD-EPI Creatinine Equation (2020) Performed By: #### L 100.0100, L500.4100, L500.4050 ####[facility] [address] [place], [address] Globulin (S) [Mass/Vol] 2.9 g/dL Normal 2.2-4.2 [facility] Comment on above: Order Comment: Comme nts: NPO at [place] prior to lipid panel Performed By: #### L 100.0100, L500.4100, L500.4050 ####[facility] [address] [place], [address] Glucose [Mass/Vol] 102 mg/dL High 70-99 [facility] Comment on above: Order Comment: Comme nts: NPO at [place] prior to lipid panel Performed By: #### L 100.0100, L500.4100, L500.4050 ####[facility] [address] [place], [address] Potassium [Moles/Vol] 3.6 mmol/L Normal 3.3-5.1 [facility] Comment on above: Order Comment: Comme nts: NPO at [place] prior to lipid panel Performed By: #### L 100.0100, L500.4100, L500.4050 ####[facility] [address] [place], [address] Sodium [Moles/Vol] 135 mmol/L Normal 133-145 [facility] Comment on above: Order Comment: Comme nts: NPO at [place] prior to lipid panel Performed By: #### L 100.0100, L500.4100, L500.4050 ####[facility] [address] [place], [address] T PROT 6.5 g/dL Normal 5.9-8.4 [facility] Comment on above: Order Comment: Comme nts: NPO at [place] prior to lipid panel Performed By: #### L 100.0100, L500.4100, L500.4050 ####[facility] [address] [place], [address] Urea nitrogen [Mass/Vol] 25 mg/dL High 4-19 [facility] Comment on above: Order Comment: Comme nts: NPO at [place] prior to lipid panel Performed By: #### L 100.0100, L500.4100, L500.4050 ####[facility] [address] [place], [place], [address] Discharge Instructionon 08-11 Discharge Instruction Normal [facility] Emergency Department Summary on 08-31-2024 Emergency Department Summary Normal [facility] Eosinophil percentageOrdered By: Layla Craig on 08-31-2024 Eosinophils/100 WBC (Bld) 2.5 % 0-5 [facility] Erythrocyte distribution wid th ratioOrdered By: Layla Craig on 08-31-2024 Erythrocyte distribution width (RBC) [Ratio] 13.1 % 11.6-14.6 [facility] Erythrocyte distribution wid th standard deviationOrdered By: Layla Craig on 08-31-2024 Erythrocyte distribution width (RBC) [Ratio] 44.6 fl High 35.1-43.9 [facility] Glomerular filtration rate ( GFR) estimation/1.73 sq m using serum, plasma, or whole bOrdered By: Layla Craig on 08-31-2024 GFR/1.73 sq M.predicted among non-blacks MDRD (S/P/Bld) [Vol rate/Area] 59 mL/min/{1.73_m2} Low >60 [facility] Hematocrit Auto (Bld) [Volum e fraction]Ordered By: Layla Craig on 08-31-2024 Hematocrit (Bld) [Volume fraction] 32.2 % Low 37-47 [facility] Hemoglobin measurementOrdere d By: Layla Craig on 08-31-2024 Hemoglobin (Bld) [Mass/Vol] 10.3 g/dL Low 12.0-15.0 [facility] Immature granulocytes/100 WB C Auto (Bld)Ordered By: Layla Craig on 08-31-2024 Immature granulocytes/100 WBC (Bld) 0.400 % 0.0-0.9 [facility] Ketones Test strip Ql (U)Ord ered By: Scooby Mobley on 08-31-2024 Ketones Ql (U) Negative Negative [facility] LDL calc ser/plasOrdered By: Layla Craig on 08-31-2024 Cholesterol in LDL [Mass/Vol] 119 mg/dL [facility] Lipid Profileon 08-31-2024 CHOL:HDL 2.46 Normal [facility] Comment on above: Order Comment: Comme nts: NPO at [place] prior to lipid panel Performed By: #### L 100.0100, L500.4100, L500.4050 ####[facility] [address] [facility] [place], [address] Cholesterol [Mass/Vol] 222 mg/dL High <=200 [facility] Comment on above: Order Comment: Comme nts: NPO at [place] prior to lipid panel Result Comment: Chol esterol level, Desirable <200 mg/dLBorderline high cholesterol 200-239 mg/dLHigh cholesterol >=240 mg/dLRecommendations of the NCEP Adult Treatment Panel for thefollowing risk-cutoff thresholds for the [place] Americanpulation. Performed By: #### L 100.0100, L500.4100, L500.4050 ####[facility] [address] [facility] [place], [address] Cholesterol in HDL [Mass/Vol] 90 mg/dL Normal [facility] Comment on above: Order Comment: Comme nts: NPO at [place] prior to lipid panel Result Comment: Arely onal Cholesterol Education Program (NCEP) guidelines:<40 mg/dL: Low HDL-cholesterol (major risk factor for CHD)>= 60 mg/dL: High HDL-cholesterol (negative risk factor forCHD)HDL-cholesterol is affected by a number of factors, e.g.smoking, exercise, hormones, sex and age. Performed By: #### L 100.0100, L500.4100, L500.4050 ####[facility] [address] [place], [address] Cholesterol in LDL [Mass/Vol] 119 mg/dL Normal [facility] Comment on above: Order Comment: Comme nts: NPO at [place] prior to lipid panel Result Comment: Bord nufbgm=630-241 mg/dL Higher Xayy=187 mg/dL or greater Performed By: #### L 100.0100, L500.4100, L500.4050 ####[facility] [address] [place], [address] Cholesterol in VLDL [Mass/Vol] 13 mg/dL Normal 5-40 [facility] Comment on above: Order Comment: Comme nts: NPO at [place] prior to lipid panel Performed By: #### L 100.0100, L500.4100, L500.4050 ####[facility] [address] [place], [address] Triglyceride [Mass/Vol] 66 mg/dL Normal [facility] Comment on above: Order Comment: Comme nts: NPO at [place] prior to lipid panel Result Comment: The drugs N-Acetylcysteine and Metamizole may falselydepress this assay.Normal range: <150 mg/dLBorderline High: 150-199 mg/dLHigh: 200-499 mg/dLVery High: >500 mg/dL Performed By: #### L 100.0100, L500.4100, L500.4050 ####[facility] [address] [place], [address] Liver Profileon 08-31-2024 Albumin [Mass/Vol] 3.7 g/dL Normal 3.4-4.8 [facility] Comment on above: Performed By: #### L 100.0100, L503.5510, L500.2500, L500.3400 ####[facility] [address] [place], [address] ALK PHOS 69 U/L Normal 35-104 [facility] Comment on above: Performed By: #### L 100.0100, L503.5510, L500.2500, L500.3400 ####[facility] [address] [place], [address] ALT [Catalytic activity/Vol] 9 U/L Normal <=34 [facility] Comment on above: Performed By: #### L 100.0100, L503.5510, L500.2500, L500.3400 ####[facility] [address] [place], [address] AST [Catalytic activity/Vol] 26 U/L Normal <=31 [facility] Comment on above: Performed By: #### L 100.0100, L503.5510, L500.2500, L500.3400 ####[facility] [address] [place], [address] Bilirubin [Mass/Vol] 0.30 mg/dL Normal 0.00-1.30 [facility] Comment on above: Performed By: #### L 100.0100, L503.5510, L500.2500, L500.3400 ####[facility] [address] [place], [address] Bilirubin.direct [Mass/Vol] 0.13 mg/dL Normal 0.00-0.30 [facility] Comment on above: Performed By: #### L 100.0100, L503.5510, L500.2500, L500.3400 ####[facility] [address] [place], [address] Globulin (S) [Mass/Vol] 3.0 g/dL Normal 2.2-4.2 [facility] Comment on above: Performed By: #### L 100.0100, L503.5510, L500.2500, L500.3400 ####[facility] [address] [place], [address] T PROT 6.6 g/dL Normal 5.9-8.4 [facility] Comment on above: Performed By: #### L 100.0100, L503.5510, L500.2500, L500.3400 ####[facility] [address] [place], [address] MCV (mean corpuscular volume ) determinationOrdered By: Layla Craig on 08-31-2024 MCV (RBC) [Entitic vol] 93.3 fL 81-99 [facility] MR/CON.PCM.NEon 08-31-2024 MR/CON.PCM.NE Normal [facility] Mean corpuscular hemoglobin (MCH) determinationOrdered By: Layla Craig on 08-31-2024 MCH (RBC) [Entitic mass] 29.9 pg 27.0-32.0 [facility] Monocyte percentageOrdered B y: Layla Craig on 08-31-2024 Monocytes/100 WBC (Bld) 9.4 % 0-10 [facility] Mucus LM Ql (Urine sed)Order ed By: Scooby Mobley on 08-31-2024 Mucus Ql (Urine sed) 0 SEEN /hpf [facility] Neutrophil percentageOrdered By: Layla Craig on 08-31-2024 Neutrophils/100 WBC (Bld) 64.8 % 47-70 [facility] Nitrite Test strip Ql (U)Ord ered By: Scooby Mobley on 08-31-2024 Nitrite Ql (U) Negative Negative [facility] No Panel InformationOrdered By: Juan José Thorpe on 08-31-2024 Negative < 200 ng/mL [facility] No Panel InformationOrdered By: Layla Craig on 08-31-2024 24 U/L <32 [facility] Platelet countOrdered By: Rm Craig on 08-31-2024 Platelets (Bld) [#/Vol] 338 10*3/uL 150-450 [facility] Potassium measurement (mass/ volume)Ordered By: Layla Craig on 08-31-2024 Potassium (Unsp spec) [Mass/Vol] 3.6 mmol/L 3.3-5.1 [facility] Protein Test strip Ql (U)Ord ered By: Scooby Mobley on 08-31-2024 Protein Ql (U) 30 mg/dl High Negative [facility] RBC Auto (Bld) [#/Vol]Ordere d By: Layla Craig on 08-31-2024 RBC (Bld) [#/Vol] 3.45 10*6/uL Low 4.2-5.4 [facility] Screening urine fentanyl fran surementOrdered By: Juan José Thorpe on 08-31-2024 fentaNYL Screen Ql (U) Negative [facility] Serum creatinine measurement (mass/volume)Ordered By: Layla Craig on 08-31-2024 Creatinine [Mass/Vol] 0.94 mg/dL 0.70-1.20 [facility] Serum globulin measurementOr dered By: Layla Craig on 08-31-2024 Globulin (S) [Mass/Vol] 2.9 g/dL 2.2-4.2 [facility] Serum glucose measurement (m ass/volume)Ordered By: Layla Craig on 08-31-2024 Glucose [Mass/Vol] 102 mg/dL High 70-99 [facility] Serum or plasma alanine clifton otransferase (ALT) measurementOrdered By: Layla Craig on 08-31-2024 ALT [Catalytic activity/Vol] 5 U/L <35 [facility] Serum or plasma albumin manuel urement (mass/volume)Ordered By: Layla Craig on 08-31-2024 Albumin [Mass/Vol] 3.6 g/dL 3.4-4.8 [facility] Serum or plasma albumin/glob ulin mass ratioOrdered By: Layla Craig on 08-31-2024 Albumin/Globulin [Mass ratio] 1.2 {ratio} 0.9-2.4 [facility] Serum or plasma alkaline bibi sphatase measurementOrdered By: Layla Craig on 08-31-2024 ALP [Catalytic activity/Vol] 69 U/L 35-104 [facility] Serum or plasma calcium manuel urement (mass/volume)Ordered By: Layla Craig on 08-31-2024 Calcium [Mass/Vol] 10.0 mg/dL 7.6-11.0 [facility] Serum or plasma cholesterol in HDL measurement (mass/volume)Ordered By: Layla Craig on 08-31-2024 Cholesterol in HDL [Mass/Vol] 90 mg/dL >40 [facility] Serum or plasma cholesterol measurement (mass/volume)Ordered By: Layla Craig on 08-31-2024 Cholesterol [Mass/Vol] 222 mg/dL High <201 [facility] Serum or plasma ethanol manuel urement (mass/volume)Ordered By: Juan José Thorpe on 08-31-2024 Ethanol [Mass/Vol] mg/dL <10.1 [facility] Serum or plasma urea nitroge n measurement (mass/volume)Ordered By: Layla Craig on 08-31-2024 Urea nitrogen [Mass/Vol] 25 mg/dL High 4-19 [facility] Sodium levelOrdered By: Bharathi Craig on 08-31-2024 Sodium [Moles/Vol] 135 mmol/L 133-145 [facility] Squamous epithelial cells de tection in urine sediment by light microscopyOrdered By: Scooby Mobley on 08-31-2024 Epithelial cells.squamous LM Ql (Urine sed) 0 SEEN /hpf 09-18 [facility] Total proteinOrdered By: Maykel Craig on 08-31-2024 Protein [Mass/Vol] 6.5 g/dL 5.9-8.4 [facility] Urinalysis, Completeon 08-31 BACTERIA 0 SEEN Normal None Seen [facility] Comment on above: Order Comment: MARV CTOR TO SPECIFY Performed By: #### L 400.0001 ####[facility] [address] [place], [place], [address] EPI,SQUAMOUS 0 SEEN Normal 09-18 [facility] Comment on above: Order Comment: MARV CTOR TO SPECIFY Performed By: #### L 400.0001 ####[facility] [address] [place], [place], [id number] Mucus Ql (Urine sed) 0 SEEN Normal [facility] Comment on above: Order Comment: MARV CTOR TO SPECIFY Performed By: #### L 400.0001 ####[facility] [address] [place], [address] RBC 0 SEEN Normal 0-5 [facility] Comment on above: Order Comment: MARV CTOR TO SPECIFY Performed By: #### L 400.0001 ####[facility] [address] [place], [address] WBC 0 SEEN Normal 0-5 [facility] Comment on above: Order Comment: MARV CTOR TO SPECIFY Performed By: #### L 400.0001 ####[facility] [address] [place], [address] Urine clarityOrdered By: Ronald Mobley on 08-31-2024 Clarity (U) Clear Clear [facility] Urine color determinationOrd ered By: Scooby Mobley on 08-31-2024 Color (U) Yellow Yellow [facility] Urine glucose detectionOrder ed By: Scooby Mobley on 08-31-2024 Glucose Ql (U) Normal mg/dl Normal [facility] Urine leukocyte esterase det ection by dipstickOrdered By: Scooby Mobley on 08-31-2024 Leukocyte esterase Test strip Ql (U) Negative Negative [facility] Urine pHOrdered By: Scooby naylor on 08-31-2024 pH (U) 7.0 [pH] 5.0 - 8.0 [facility] Urine phencyclidine (PCP) de tectionOrdered By: Juan José Thorpe on 08-31-2024 Phencyclidine Ql (U) Negative < 25 ng/mL [facility] Urine sediment bacteria coun t by microscopy (number/high power field)Ordered By: Scooby Mobley on 08-31-2024 Bacteria LM.HPF (Urine sed) [#/Area] 0 /[HPF] None Seen [facility] Urine specific gravity measu rementOrdered By: Scooby Mobley on 08-31-2024 Specific gravity (U) [Rel density] 1.010 1.002-1.030 [facility] Urine urobilinogen measureme ntOrdered By: Scooby Mobley on 08-31-2024 Urobilinogen Ql (U) Normal mg/dl Normal [facility] Venous blood ammonia measure mentOrdered By: Scooby Mobley on 08-31-2024 Ammonia (P) [Moles/Vol] 19.3 umol/L [facility] White blood cell (WBC) count Ordered By: Layla Craig on 08-31-2024 WBC (Bld) [#/Vol] 6.9 10*3/uL 4.4-11.0 [facility] White blood cell countOrdere d By: Scooby Mobley on 08-31-2024 White blood cell count 0 SEEN /hpf 0-5 [facility] 12 Lead EKGon 08-30-2024 12 Lead EKG Normal [facility] Absolute neutrophil countOrd ered By: Ayaz Hinton on 08-30-2024 Absolute neutrophil count 5.3 X10^3/uL 2.0-7.7 [facility] Activated partial thrombopla stin time (aPTT) in platelet poor plasma by coagulation aOrdered By: Ayaz Hinton on 08-30-2024 aPTT Coag (PPP) [Time] 32.4 s 24.1-36.2 [facility] Ammoniaon 08-30-2024 Ammonia (P) [Moles/Vol] 14.8 umol/L Normal [facility] Comment on above: Performed By: #### L 503.0106, L501.9520, L503.5510 ####[facility] [address] [place], [address] Anion gap [Moles/Vol]Ordered By: Ayaz Hinton on 08-30-2024 Anion gap in Serum or Plasma 14 5-15 [facility] Assessment of wrist artery p atency prior to arterial punctureOrdered By: Layla Craig on 08-30-2024 Arterial patency Wrist artery --pre arterial puncture Positive [facility] BUN/creatinine ratioOrdered By: Ayaz Hinton on 08-30-2024 BUN/creatinine ratio 28.8 RATIO High 10-20 [facility] Basic Metabolic Profile (BMP )on 08-30-2024 BUN/CRE 28.8 RATIO High 10-20 [facility] Comment on above: Performed By: #### L 300.3900, L501.4021, L500.2500, L100.0100 ####[facility] [address] [place], [address] Calcium [Mass/Vol] 9.9 mg/dL Normal 7.6-11.0 [facility] Comment on above: Performed By: #### L 300.3900, L501.4021, L500.2500, L100.0100 ####[facility] [address] [place], [address] Chloride [Moles/Vol] 95 mmol/L Low 98-108 [facility] Comment on above: Performed By: #### L 300.3900, L501.4021, L500.2500, L100.0100 ####[facility] [address] [place], [address] CO2 [Moles/Vol] 28.0 mmol/L Normal 21.0-32.0 [facility] Comment on above: Performed By: #### L 300.3900, L501.4021, L500.2500, L100.0100 ####[facility] [address] [place], [address] Creatinine [Mass/Vol] 1.06 mg/dL Normal 0.70-1.20 [facility] Comment on above: Performed By: #### L 300.3900, L501.4021, L500.2500, L100.0100 ####[facility] [address] [place], [address] ECRCL 32.40 ml/min Low 50-250 [facility] Comment on above: Performed By: #### L 300.3900, L501.4021, L500.2500, L100.0100 ####[facility] [address] [place], [address] GAP 14 Normal 5-15 [facility] Comment on above: Performed By: #### L 300.3900, L501.4021, L500.2500, L100.0100 ####[facility] [address] [place], [address] GFR/1.73 sq M.predicted among non-blacks MDRD (S/P/Bld) [Vol rate/Area] 51 mL/min/{1.73_m2} Low >60 [facility] Comment on above: Result Comment: mL/m in/1.73m2 CKD-EPI Creatinine Equation (2020) Performed By: #### L 300.3900, L501.4021, L500.2500, L100.0100 ####[facility] [address] [place], [address] Glucose [Mass/Vol] 123 mg/dL High 70-99 [facility] Comment on above: Performed By: #### L 300.3900, L501.4021, L500.2500, L100.0100 ####[facility] [address] [place], [address] Potassium [Moles/Vol] 4.2 mmol/L Normal 3.3-5.1 [facility] Comment on above: Result Comment: Hemo lysis present, Results??could be affected.?? Performed By: #### L 300.3900, L501.4021, L500.2500, L100.0100 ####[facility] [address] [place], [address] Sodium [Moles/Vol] 136 mmol/L Normal 133-145 [facility] Comment on above: Performed By: #### L 300.3900, L501.4021, L500.2500, L100.0100 ####[facility] [address] [place], [address] Urea nitrogen [Mass/Vol] 31 mg/dL High 4-19 [facility] Comment on above: Performed By: #### L 300.3900, L501.4021, L500.2500, L100.0100 ####[facility] [address] [place], [address] Basophil percentageOrdered B y: Ayaz Hinton on 08-30-2024 Basophil percentage 0.9 % 0-1 [facility] Bilirubin Test strip Ql (U)O rdered By: Ayaz Blevinsne on 08-30-2024 Bilirubin Ql (U) Negative Negative [facility] Blood Gases by CPSon 025 TERESA TEST Positive Normal [facility] Comment on above: Performed By: #### L 9000.0800 ####[facility] [address] [place], [address] Base excess Calc (Bld) [Moles/Vol] 12 mmol/L High -2 to +2 [facility] Comment on above: Performed By: #### L 9000.0800 ####[facility] [address] [place], [address] Blood Gas Type ART Normal [facility] Comment on above: Performed By: #### L 9000.0800 ####[facility] [address] [place], [address] CO2 [Moles/Vol] 37 mmol/L Normal [facility] Comment on above: Performed By: #### L 9000.0800 ####[facility] [address] [place], [address] FI02 21.0 Normal [facility] Comment on above: Performed By: #### L 9000.0800 ####[facility] [address] [place], [address] HCO3 (Bld) [Moles/Vol] 35.3 mmol/L High 22-26 [facility] Comment on above: Performed By: #### L 9000.0800 ####[facility] [address] [place], [address] Mode Not entered Normal [facility] Comment on above: Performed By: #### L 9000.0800 ####[facility] [address] [place], [address] O2 Delivery Dev Room Air Normal [facility] Comment on above: Performed By: #### L 9000.0800 ####[facility] [address] [place], [address] pCO2 45.8 mmHg High 35-45 [facility] Comment on above: Performed By: #### L 9000.0800 ####[facility] [address] [place], [address] pH (Bld) 7.50 [pH] High 7.35-7.45 [facility] Comment on above: Performed By: #### L 9000.0800 ####[facility] [address] [place], [address] PO2 64 mmHG Low 75-100 [facility] Comment on above: Performed By: #### L 9000.0800 ####[facility] [address] [place], [address] SITE R Radial Normal [facility] Comment on above: Performed By: #### L 9000.0800 ####[facility] [address] [place], [address] SO2 93 Low 95-99 [facility] Comment on above: Performed By: #### L 9000.0800 ####[facility] [address] [place], [address] Blood base excess determinat ionOrdered By: Layla Craig on 08-30-2024 Base excess Calc (BldV) [Moles/Vol] 12 mmol/L High -2-2 [facility] Blood bicarbonate measuremen tOrdered By: Layla Craig on 08-30-2024 HCO3 (Bld) [Moles/Vol] 35.3 mmol/L High 22-26 [facility] CBC W/Diff, Automatedon 08-11 Absolute Lymph 1.38 X10 3/uL Normal 0.83-4.51 [facility] Comment on above: Performed By: #### L 300.3900, L501.4021, L500.2500, L100.0100 ####[facility] [address] [place], [address] Absolute Neut 5.3 X10 3/uL Normal 2.0-7.7 [facility] Comment on above: Performed By: #### L 300.3900, L501.4021, L500.2500, L100.0100 ####[facility] [address] [place], [address] Basophils/100 WBC (Bld) 0.9 % Normal 0-1 [facility] Comment on above: Performed By: #### L 300.3900, L501.4021, L500.2500, L100.0100 ####[facility] [address] [place], [address] Eosinophils/100 WBC (Bld) 1.9 % Normal 0-5 [facility] Comment on above: Performed By: #### L 300.3900, L501.4021, L500.2500, L100.0100 ####[facility] [address] [place], [address] Erythrocyte distribution width (RBC) [Ratio] 13.1 % Normal 11.6-14.6 [facility] Comment on above: Performed By: #### L 300.3900, L501.4021, L500.2500, L100.0100 ####[facility] [address] [place], [address] Hematocrit (Bld) [Volume fraction] 38.4 % Normal 37-47 [facility] Comment on above: Performed By: #### L 300.3900, L501.4021, L500.2500, L100.0100 ####[facility] [address] [place], [address] Hemoglobin (Bld) [Mass/Vol] 12.4 g/dL Normal 12.0-15.0 [facility] Comment on above: Performed By: #### L 300.3900, L501.4021, L500.2500, L100.0100 ####[facility] [address] [place], [address] IG% 0.500 Normal 0.0-0.9 [facility] Comment on above: Result Comment: IG% - Immature Granulocytes (promyelocytes, myelocytes andmetamyelocytes) > 1% indicates that a LEFT SHIFT is Present. Performed By: #### L 300.3900, L501.4021, L500.2500, L100.0100 ####[facility] [address] [place], [address] Lymphocytes/100 WBC (Bld) 18.4 % Low 19-41 [facility] Comment on above: Performed By: #### L 300.3900, L501.4021, L500.2500, L100.0100 ####[facility] [address] [place], [address] MCH (RBC) [Entitic mass] 30.0 pg Normal 27.0-32.0 [facility] Comment on above: Performed By: #### L 300.3900, L501.4021, L500.2500, L100.0100 ####[facility] [address] [place], [address] MCHC (RBC) [Mass/Vol] 32.3 g/dL Normal 32-36 [facility] Comment on above: Performed By: #### L 300.3900, L501.4021, L500.2500, L100.0100 ####[facility] [address] [place], [address] MCV (RBC) [Entitic vol] 92.8 fL Normal 81-99 [facility] Comment on above: Performed By: #### L 300.3900, L501.4021, L500.2500, L100.0100 ####[facility] [address] [place], [address] Monocytes/100 WBC (Bld) 8.2 % Normal 0-10 [facility] Comment on above: Performed By: #### L 300.3900, L501.4021, L500.2500, L100.0100 ####[facility] [address] [place], [address] Neutrophils/100 WBC (Bld) 70.1 % High 47-70 [facility] Comment on above: Performed By: #### L 300.3900, L501.4021, L500.2500, L100.0100 ####[facility] [address] [place], [address] Nucleated RBC (Bld) [#/Vol] 0 10*3/uL Normal 0-5 [facility] Comment on above: Performed By: #### L 300.3900, L501.4021, L500.2500, L100.0100 ####[facility] [address] [place], [address] Platelet mean volume (Bld) [Entitic vol] 9.6 fL Normal 6.2-12.0 [facility] Comment on above: Performed By: #### L 300.3900, L501.4021, L500.2500, L100.0100 ####[facility] [address] [place], [address] Platelets (Bld) [#/Vol] 337 10*3/uL Normal 150-450 [facility] Comment on above: Performed By: #### L 300.3900, L501.4021, L500.2500, L100.0100 ####[facility] [address] [place], [address] RBC (Bld) [#/Vol] 4.14 10*6/uL Low 4.2-5.4 [facility] Comment on above: Performed By: #### L 300.3900, L501.4021, L500.2500, L100.0100 ####[facility] [address] [place], [address] RDW SD 44.8 fl High 35.1-43.9 [facility] Comment on above: Performed By: #### L 300.3900, L501.4021, L500.2500, L100.0100 ####[facility] [address] [place], [address] WBC (Bld) [#/Vol] 7.5 10*3/uL Normal 4.4-11.0 [facility] Comment on above: Performed By: #### L 300.3900, L501.4021, L500.2500, L100.0100 ####[facility] [address] [place], [address] CO2 (BldV) [Moles/Vol]Ordere d By: Layla Craig on 08-30-2024 CO2 [Moles/Vol] 31 mmol/L 23-33 [facility] Calcium [Mass/Vol]Ordered By : Ayaz Hinton on 08-30-2024 Serum or plasma calcium measurement (mass/volume) 9.9 mg/dL 7.6-11.0 [facility] Carbon dioxide, total [Moles /volume] in Central venous bloodOrdered By: Ayaz Hinton on 08-30-2024 Carbon dioxide, total [Moles/volume] in Central venous blood 28.0 mmol/L 21.0-32.0 [facility] Chest 1 Viewon 08-30-2024 Chest 1 View Normal [facility] Chloride assayOrdered By: Freddie Hinton on 08-30-2024 Chloride assay 95 mmol/L Low 98-108 [facility] Clarity (U)Ordered By: Dannie Hinton on 08-30-2024 Urine clarity Cloudy Clear [facility] Color (U)Ordered By: Ayaz Hinton on 08-30-2024 Urine color determination Yellow Yellow [facility] Creatinine [Mass/Vol]Ordered By: Ayaz Hinton on 08-30-2024 Serum creatinine measurement (mass/volume) 1.06 mg/dL 0.70-1.20 [facility] Echo Complete W/ Contraston 08-30-2024 Echo Complete W/ Contrast Normal [facility] Emergency Department Summary on 08-30-2024 Emergency Department Summary Normal [facility] Eosinophil percentageOrdered By: Ayaz Hinton on 08-30-2024 Eosinophil percentage 1.9 % 0-5 [facility] Erythrocyte distribution wid th (RBC) [Ratio]Ordered By: Ayaz Hinton on 08-30-2024 Erythrocyte distribution width ratio 13.1 % 11.6-14.6 [facility] Erythrocyte distribution width standard deviation 44.8 fl High 35.1-43.9 [facility] Estimation of creatinine mary ellen aranceOrdered By: Ayaz Hinton on 08-30-2024 Estimation of creatinine clearance 32.40 ml/min Low 50-250 [facility] GFR/1.73 sq M.predicted jane g non-blacks MDRD (S/P/Bld) [Vol rate/Area]Ordered By: Ayaz Hinton on 08-30-2024 Glomerular filtration rate (GFR) estimation/1.73 sq m using serum, plasma, or whole b 51 Low >60 [facility] Glucose [Mass/Vol]Ordered By : Ayaz Hinton on 08-30-2024 Serum glucose measurement (mass/volume) 123 mg/dL High 70-99 [facility] H AND P Exam - [place] 08-30-2024 H&P Exam - Hospitalist Normal [facility] HIP, UNI W/ Pelvis 2-3 Views on 08-30-2024 HIP, UNI W/ Pelvis 2-3 Views Normal [facility] Hematocrit Auto (Bld) [Volum e fraction]Ordered By: Ayaz Hinton on 08-30-2024 Automated blood hematocrit (percentage) 38.4 % 37-47 [facility] Hemoglobin measurementOrdere d By: Ayaz Hinton on 08-30-2024 Hemoglobin measurement 12.4 g/dL 12.0-15.0 [facility] Immature granulocytes/100 WB C Auto (Bld)Ordered By: Ayaz Hinton on 08-30-2024 Automated immature granulocyte percentage 0.500 % 0.0-0.9 [facility] International normalized rat io (INR) calculationOrdered By: Ayaz Hinton on 08-30-2024 International normalized ratio (INR) calculation 1.0 [facility] Ketones Test strip Ql (U)Ord ered By: Ayaz Hinton on 08-30-2024 Ketones Ql (U) Negative Negative [facility] Knee 1 or 2 Viewson 08-31-19 25 Knee 1 or 2 Views Normal [facility] L499.0042on 08-30-2024 Trop T High Sen 37 ng/L High <=14 [facility] Comment on above: Performed By: #### L 499.0042 ####[facility] [address] [place], [address] L499.0043on 08-30-2024 Trop T High Sen 38 ng/L High <=14 [facility] Comment on above: Performed By: #### L 499.0043 ####[facility] [address] [place], [address] L501.4021on 08-30-2024 Trop T High Sen 26 ng/L High <=14 [facility] Comment on above: Result Comment: Hemo lysis present, Results??could be affected.?? Performed By: #### L 300.3900, L501.4021, L500.2500, L100.0100 ####[facility] [address] [place], [address] Leukocyte esterase Test stri p Ql (U)Ordered By: Ayaz Hinton on 08-30-2024 Urine leukocyte esterase detection by dipstick 100 /ul High Negative [facility] Lymphocytes Auto (Unsp spec) [#/Vol]Ordered By: Ayaz Hinton on 08-30-2024 Absolute lymphocyte count 1.38 X10^3/uL 0.83-4.51 [facility] Lymphocytes/100 WBC Auto (Un sp spec)Ordered By: Ayaz Hinton on 08-30-2024 Automated lymphocyte count as percentage of total leukocytes 18.4 % Low 19-41 [facility] MCV (RBC) [Entitic vol]Order ed By: Ayaz Hinton on 08-30-2024 MCV (mean corpuscular volume) determination 92.8 fL 81-99 [facility] Mean corpuscular hemoglobin (MCH) determinationOrdered By: Ayaz Hinton on 08-30-2024 Mean corpuscular hemoglobin (MCH) determination 30.0 pg 27.0-32.0 [facility] Mean corpuscular hemoglobin concentration (MCHC) determinationOrdered By: Ayaz Hinton on 08-30-2024 Mean corpuscular hemoglobin concentration (MCHC) determination 32.3 g/dL 32-36 [facility] Mean platelet volume determi nationOrdered By: Ayaz Hinton on 08-30-2024 Mean platelet volume determination 9.6 fl 6.2-12.0 [facility] Measurement, pHOrdered By: Julien Craig on 08-30-2024 pH (Unsp spec) 7.50 [pH] High 7.35-7.45 [facility] Microscopic analysis of urin e for red blood cells (RBC)Ordered By: Ayaz Hinton on 08-30-2024 Microscopic analysis of urine for red blood cells (RBC) 0 SEEN /hpf 0-5 [facility] Monocyte percentageOrdered B y: Ayaz Hinton on 08-30-2024 Monocyte percentage 8.2 % 0-10 [facility] Mucus LM Ql (Urine sed)Order ed By: Ayaz Hinton on 08-30-2024 Mucus Ql (Urine sed) 1+ /hpf [facility] Neutrophil percentageOrdered By: Ayaz Hinton on 08-30-2024 Neutrophil percentage 70.1 % High 47-70 [facility] Nitrite Test strip Ql (U)Ord ered By: Ayaz Hinton on 08-30-2024 Nitrite Ql (U) Negative Negative [facility] No Panel InformationOrdered By: Layla Craig on 08-30-2024 ART [facility] R Radial [facility] Not entered [facility] Room Air [facility] 16:51:18 [facility] craig [facility] Yes [facility] Nucleated red blood cell per centageOrdered By: Ayaz Hinton on 08-30-2024 Nucleated red blood cell percentage 0 % 0-5 [facility] Partial Thromboplast Timeon 08-30-2024 aPTT Coag (Bld) [Time] 32.4 s Normal 24.1-36.2 [facility] Comment on above: Performed By: #### L 300.3900, L300.4310 ####[facility] [address] [place], [place], [id number] Platelet countOrdered By: Freddie Hinton on 08-30-2024 Platelet count 337 K/mm3 150-450 [facility] Potassium (Unsp spec) [Mass/ Vol]Ordered By: Ayaz Hinton on 08-30-2024 Potassium measurement (mass/volume) 4.2 mmol/L 3.3-5.1 [facility] Protein Test strip Ql (U)Ord ered By: Ayaz Hinton on 08-30-2024 Protein Ql (U) 30 mg/dl High Negative [facility] Urine protein assay by test strip, semi-quantitative 30 mg/dl High Negative [facility] Prothrombin Time w/INRon INR Coag (PPP) [Relative time] 1.0 {INR} Normal [facility] Comment on above: Performed By: #### L 300.3900, L300.4310 ####[facility] [address] [place], [place], [id number] PT Coag (PPP) [Time] 13.2 s Normal 11.7-14.9 [facility] Comment on above: Performed By: #### L 300.3900, L300.4310 ####[facility] [address] [place], [address] INR Normal [facility] Comment on above: Order Comment: REDRA W. PREVIOUS SPECIMEN REJECTED DUE TOCLOTTED. 08/30/24 1159 Rosy Salas. Result Comment: Canc elled via OM: Unable to obtain specimen Performed By: #### L 300.3900 ####[facility] [address] [place], [address] PROTIME Normal 11.7-14.9 [facility] Comment on above: Order Comment: REDRA W. PREVIOUS SPECIMEN REJECTED DUE TOCLOTTED. 08/30/24 1159 Rosy Salas. Result Comment: Canc elled via OM: Unable to obtain specimen Performed By: #### L 300.3900 ####[facility] [address] [place], [address] INR Normal [facility] Comment on above: Result Comment: This specimen has been REJECTED due to Laboratory criteria:Clotted.ATD has been notified of need of recollection.08/30/24 115 Rosy Salas Performed By: #### L 300.3900, L501.4021, L500.2500, L100.0100 ####[facility] [address] [place], [address] PROTIME Normal 11.7-14.9 [facility] Comment on above: Result Comment: This specimen has been REJECTED due to Laboratory criteria:Clotted.TAD has been notified of need of recollection.08/30/24 1159 Rosy Salas Performed By: #### L 300.3900, L501.4021, L500.2500, L100.0100 ####[facility] [address] [place], [address] Prothrombin timeOrdered By: Ayaz Hinton on 08-30-2024 PT Coag (PPP) [Time] 13.2 s 11.7-14.9 [facility] Prothrombin time 13.2 SECONDS 11.7-14.9 [facility] RBC Auto (Bld) [#/Vol]Ordere d By: Ayaz Hinton on 08-30-2024 Automated blood erythrocyte count 4.14 M/mm3 Low 4.2-5.4 [facility] STROKE Brain/Head without Co nton 08-30-2024 STROKE Brain/Head without Cont Normal [facility] STROKE CTA Head AND Neck W/C onon 08-30-2024 STROKE CTA Head AND Neck W/Con Normal [facility] Sodium levelOrdered By: Marquise Hinton on 08-30-2024 Sodium level 136 mmol/L 133-145 [facility] Specific gravity (U) [Rel de nsity]Ordered By: Ayaz Hinton on 08-30-2024 Urine specific gravity measurement 1.010 1.002-1.030 [facility] Squamous epithelial cells de tection in urine sediment by light microscopyOrdered By: Ayaz Hinton on 08-30-2024 Epithelial cells.squamous LM Ql (Urine sed) 0-5 SEEN /hpf 5-10 [facility] TSH DL <= 0.005 mIU/L QnOrde red By: Layla Craig on 08-30-2024 TSH Qn 0.881 uIU/mL 0.300-4.200 [facility] Thyroid Stim Hormone (TSH)on 08-30-2024 TSH 0.881 uIU/mL Normal 0.300-4.200 [facility] Comment on above: Performed By: #### L 503.0106, L501.9520, L503.5510 ####[facility] [address] [place], [address] Total carbon dioxide measure mentOrdered By: Layla Craig on 08-30-2024 CO2 [Moles/Vol] 37 mmol/L [facility] Troponin T.cardiac High sens itivity method [Mass/Vol]Ordered By: Ayaz Hinton on 08-30-2024 Troponin T.cardiac [Mass/volume] in Serum or Plasma by High sensitivity method 26 ng/L High <14 [facility] Troponin T.cardiac [Mass/vol ume] in Serum or Plasma by High sensitivity methodOrdered By: Ayaz Hinton on 08-30-2024 Troponin T.cardiac High sensitivity method [Mass/Vol] 38 ng/L High <14 [facility] Troponin T.cardiac High sensitivity method [Mass/Vol] 37 ng/L High <14 [facility] Troponin T.cardiac High sensitivity method [Mass/Vol] 26 ng/L High <14 [facility] Unidentified crystals LM.HPF (Urine sed) [#/Area]Ordered By: Ayaz Hinton on 08-30-2024 Urine sediment unidentified crystal count by microscopy (number/high powered field) See comment None Seen [facility] Urea nitrogen [Mass/Vol]Orde red By: Ayaz Hinton on 08-30-2024 Serum or plasma urea nitrogen measurement (mass/volume) 31 mg/dL High 4-19 [facility] Urinalysis, Completeon 08-30 BACTERIA 1+ /hpf Normal None Seen [facility] Comment on above: Order Comment: MARV CTOR TO SPECIFY Performed By: #### L 400.0001 ####[facility] [address] [place], [address] CRYSTAL,OTHER Normal None Seen [facility] Comment on above: Order Comment: MARV CTOR TO SPECIFY Result Comment: 2+ S TARCH CRYSTALS Performed By: #### L 400.0001 ####[facility] [address] [place], [address] EPI,SQUAMOUS 0-5 SEEN Normal 5-10 [facility] Comment on above: Order Comment: MARV CTOR TO SPECIFY Performed By: #### L 400.0001 ####[facility] [address] [place], [address] Mucus Ql (Urine sed) 1+ /hpf Normal [facility] Comment on above: Order Comment: MARV CTOR TO SPECIFY Performed By: #### L 400.0001 ####[facility] [address] [place], [address] WBC 0-5 SEEN Normal 0-5 [facility] Comment on above: Order Comment: MARV CTOR TO SPECIFY Performed By: #### L 400.0001 ####[facility] [address] [place] [address] RBC 0 SEEN Normal 0-5 [facility] Comment on above: Order Comment: MARV CTOR TO SPECIFY Performed By: #### L 400.0001 ####[facility] [address] [place] [address] Urine Drug Screen (VISTA)on 08-30-2024 AMPHETAMINES Normal <1000 ng/mL [facility] Comment on above: Result Comment: BOBBI ENT DISCHARGED. Performed By: #### L 505.5000 ####[facility] [address] [place] [address] BARBITIURATES Normal < 200 ng/mL [facility] Comment on above: Result Comment: BOBBI ENT DISCHARGED. Performed By: #### L 505.5000 ####[facility] [address] [place] [address] BENZODIAZIPINE Normal < 200 ng/mL [facility] Comment on above: Result Comment: BOBBI ENT DISCHARGED. Performed By: #### L 505.5000 ####[facility] [address] [place] [address] BUP Ur Drug Scr Normal < 200 ng/mL [facility] Comment on above: Result Comment: BOBBI ENT DISCHARGED. Performed By: #### L 505.5000 ####[facility] [address] [place] [address] COCAINE Normal < 300 ng/mL [facility] Comment on above: Result Comment: BOBBI ENT DISCHARGED. Performed By: #### L 505.5000 ####[facility] [address] [place] [id number] Fentanyl Normal [facility] Comment on above: Result Comment: BOBBI ENT DISCHARGED. Performed By: #### L 505.5000 ####[facility] [address] [place], [address] METHADONE Normal < 300 ng/mL [facility] Comment on above: Result Comment: BOBBI ENT DISCHARGED. Performed By: #### L 505.5000 ####[facility] [address] [place], [address] OPIATES Normal < 300 ng/mL [facility] Comment on above: Result Comment: BOBBI ENT DISCHARGED. Performed By: #### L 505.5000 ####[facility] [address] [place], [address] OXYCODONE Normal < 100 ng/mL [facility] Comment on above: Result Comment: BOBBI ENT DISCHARGED. Performed By: #### L 505.5000 ####[facility] [address] [place], [address] PCP Normal < 25 ng/mL [facility] Comment on above: Result Comment: BOBBI ENT DISCHARGED. Performed By: #### L 505.5000 ####[facility] [address] [place], [address] THC Normal < 50 ng/mL [facility] Comment on above: Result Comment: BOBBI ENT DISCHARGED. Performed By: #### L 505.5000 ####[facility] [address] [place], [address] Urine blood detectionOrdered By: Ayaz Hinton on 08-30-2024 Urine blood detection 10 /ul High Negative [facility] Urine clarityOrdered By: Kota Hinton on 08-30-2024 Clarity (U) Cloudy Clear [facility] Urine color determinationOrd ered By: Ayaz Hinton on 08-30-2024 Color (U) Yellow Yellow [facility] Urine glucose detectionOrder ed By: Ayaz Hinton on 08-30-2024 Glucose Ql (U) Normal mg/dl Normal [facility] Urine glucose detection Normal mg/dl Normal [facility] Urine leukocyte esterase det ection by dipstickOrdered By: Ayaz Hinton on 08-30-2024 Leukocyte esterase Test strip Ql (U) 100 /ul High Negative [facility] Urine pHOrdered By: Ayaz amaro on 08-30-2024 pH (U) 8.0 [pH] 5.0 - 8.0 [facility] Urine sediment bacteria coun t by microscopy (number/high power field)Ordered By: Ayaz Hinton on 08-30-2024 Bacteria LM.HPF (Urine sed) [#/Area] 1 /[HPF] None Seen [facility] Urine sediment bacteria count by microscopy (number/high power field) 1+ /hpf [facility] Urine sediment unidentified crystal count by microscopy (number/high powered field)Ordered By: Ayaz Hinton on 08-30-2024 Unidentified crystals LM.HPF (Urine sed) [#/Area] See comment None Seen [facility] Urine specific gravity measu rementOrdered By: Ayaz Hinton on 08-30-2024 Specific gravity (U) [Rel density] 1.010 1.002-1.030 [facility] Urine total bilirubin detect ion by test stripOrdered By: Ayaz Hinton on 08-30-2024 Urine total bilirubin detection by test strip Negative Negative [facility] Urine urobilinogen measureme ntOrdered By: Ayaz Hinton on 08-30-2024 Urobilinogen Ql (U) Normal mg/dl Normal [facility] Venous Blood Gason 5 Blood Gas Type ASHER Normal [facility] Comment on above: Performed By: #### L 9000.0810 ####[facility] [address] [place], [place], [phone] CO2 [Moles/Vol] 31 mmol/L Normal 23-33 [facility] Comment on above: Performed By: #### L 9000.0810 ####[facility] [address] [place], [place], [phone] HCO3 (Bld) [Moles/Vol] 30 mmol/L High 22-26 [facility] Comment on above: Performed By: #### L 9000.0810 ####[facility] [address] [place], [address] O2 Delivery Dev Not entered Normal [facility] Comment on above: Performed By: #### L 9000.0810 ####[facility] [address] [place], [address] Read Back By Yes [facility] Comment on above: Performed By: #### L 9000.0810 ####[facility] [address] [place], [address] Results To craig Normal [facility] Comment on above: Performed By: #### L 9000.0810 ####[facility] [address] [place], [address] SITE Not entered [facility] Comment on above: Performed By: #### L 9000.0810 ####[facility] [address] [place], [address] Time Given 16:51:18 [facility] Comment on above: Performed By: #### L 9000.0810 ####[facility] [address] [place], [address] VBG BE 10 mmol/L High -1.0-3.5 [facility] Comment on above: Performed By: #### L 9000.0810 ####[facility] [address] [place], [address] VBG pCO2 22.7 mmHg Low 41-51 [facility] Comment on above: Performed By: #### L 9000.0810 ####[facility] [address] [place], [address] VBG pH 7.73 Invalid Interpretation Code 7.32-7.42 [facility] Comment on above: Performed By: #### L 9000.0810 ####[facility] [address] [place], [address] VBG PO2 170 mmHg High 25-40 [facility] Comment on above: Performed By: #### L 9000.0810 ####[facility] [address] [place], [place], [id number] VBG SO2 100 High 50-70 [facility] Comment on above: Performed By: #### L 9000.0810 ####[facility] [address] [place], [address] Venous blood ammonia measure mentOrdered By: Layla Craig on 08-30-2024 Ammonia (P) [Moles/Vol] 14.8 umol/L 11-51 [facility] Venous blood base excess fran surementOrdered By: Layla Craig on 08-30-2024 Base excess Calc (BldV) [Moles/Vol] 10 mmol/L High -1.0-3.5 [facility] Venous blood bicarbonate fran surementOrdered By: Layla Craig on 08-30-2024 HCO3 (Bld) [Moles/Vol] 30 mmol/L High 22-26 [facility] Venous blood pH measurementO rdered By: Layla Craig on 08-30-2024 pH (BldV) 7.73 [pH] High 7.32-7.42 [facility] Venous blood partial pressur e of carbon dioxide measurementOrdered By: Layla Craig on 08-30-2024 CO2 (BldV) [Partial pressure] 22.7 mm[Hg] Low 41-51 [facility] Venous blood partial pressur e of oxygen measurementOrdered By: Layla Craig on 08-30-2024 Oxygen (BldV) [Partial pressure] 170 mm[Hg] High 25-40 [facility] Vitamin B12on 08-30-2024 Cobalamin (Vitamin B12) [Mass/Vol] 338 pg/mL Normal 180-914 [facility] Comment on above: Performed By: #### L 503.0106, L501.9520, L503.5510 ####[facility] [address] [place], [place], [phone] Vitamin B12 ser/plasOrdered By: Layla Craig on 08-30-2024 Cobalamin (Vitamin B12) [Mass/Vol] 338 pg/mL 180-914 [facility] White blood cell (WBC) count Ordered By: Ayaz Hinton on 08-30-2024 White blood cell (WBC) count 7.5 K/mm3 4.4-11.0 [facility] White blood cell countOrdere d By: Ayaz Hinton on 08-30-2024 White blood cell count 0-5 SEEN /hpf 0-5 [facility] White blood cell count 0-5 SEEN /hpf 5-10 [facility] aPTT Coag (PPP) [Time]Ordere d By: Ayaz Hinton on 08-30-2024 Activated partial thromboplastin time (aPTT) in platelet poor plasma by coagulation a 32.4 Seconds 24.1-36.2 [facility] pH (U)Ordered By: Ayaz garcia on 08-30-2024 Urine pH 8.0 5.0 - 8.0 [facility] Basic Metabolic Profile (BMP )on 07-29-2024 BUN Normal 7-18 [facility] Comment on above: Result Comment: Canc elled via OM: Order cancelled - Patient discharged Performed By: #### L 100.0100, L500.2500 ####[facility] [address] [place], [address] BUN/CRE Normal 10-20 [facility] Comment on above: Result Comment: Canc elled via OM: Order cancelled - Patient discharged Performed By: #### L 100.0100, L500.2500 ####[facility] [address] [place], [address] Calcium Normal 8.5-10.1 [facility] Comment on above: Result Comment: Canc elled via OM: Order cancelled - Patient discharged Performed By: #### L 100.0100, L500.2500 ####[facility] [address] [place], [address] CL Normal 98-107 [facility] Comment on above: Result Comment: Canc elled via OM: Order cancelled - Patient discharged Performed By: #### L 100.0100, L500.2500 ####[facility] [address] [place], [address] CO2 Normal 21.0-32.0 [facility] Comment on above: Result Comment: Canc elled via OM: Order cancelled - Patient discharged Performed By: #### L 100.0100, L500.2500 ####[facility] [address] [place], [address] CREAT,SERUM Normal 0.55-1.02 [facility] Comment on above: Result Comment: Canc elled via OM: Order cancelled - Patient discharged Performed By: #### L 100.0100, L500.2500 ####[facility] [address] [place], [address] eGFR Normal >60 [facility] Comment on above: Result Comment: Canc elled via OM: Order cancelled - Patient discharged Performed By: #### L 100.0100, L500.2500 ####[facility] [address] [place], [address] EST GFR - AA Normal >60 [facility] Comment on above: Result Comment: Canc elled via OM: Order cancelled - Patient discharged Performed By: #### L 100.0100, L500.2500 ####[facility] [address] [place], [address] GAP Normal 5-15 [facility] Comment on above: Result Comment: Canc elled via OM: Order cancelled - Patient discharged Performed By: #### L 100.0100, L500.2500 ####[facility] [address] [place], [address] GLU Normal 74-106 [facility] Comment on above: Result Comment: Canc elled via OM: Order cancelled - Patient discharged Performed By: #### L 100.0100, L500.2500 ####[facility] [address] [place], [address] Potassium Normal 3.5-5.1 [facility] Comment on above: Result Comment: Canc elled via OM: Order cancelled - Patient discharged Performed By: #### L 100.0100, L500.2500 ####[facility] [address] [place], [address] Basic Metabolic Profile (BMP) Normal 136-145 [facility] Comment on above: Result Comment: Canc elled via OM: Order cancelled - Patient discharged Performed By: #### L 100.0100, L500.2500 ####[facility] [address] [place], [address] CBC W/Diff, Automatedon 03-2 0-2024 Absolute Neut Normal 2.0-7.7 [facility] Comment on above: Result Comment: Canc elled via OM: Order cancelled - Patient discharged Performed By: #### L 100.0100, L500.2500 ####[facility] [address] [place], [address] HCT Normal 37-47 [facility] Comment on above: Result Comment: Canc elled via OM: Order cancelled - Patient discharged Performed By: #### L 100.0100, L500.2500 ####[facility] [address] [place], [address] HGB Normal 12.0-15.0 [facility] Comment on above: Result Comment: Canc elled via OM: Order cancelled - Patient discharged Performed By: #### L 100.0100, L500.2500 ####[facility] [address] [place], [address] MCH Normal 27.0-32.0 [facility] Comment on above: Result Comment: Canc elled via OM: Order cancelled - Patient discharged Performed By: #### L 100.0100, L500.2500 ####[facility] [address] [place], [address] MCHC Normal 32-36 [facility] Comment on above: Result Comment: Canc elled via OM: Order cancelled - Patient discharged Performed By: #### L 100.0100, L500.2500 ####[facility] [address] [place], [address] MCV Normal 81-99 [facility] Comment on above: Result Comment: Canc elled via OM: Order cancelled - Patient discharged Performed By: #### L 100.0100, L500.2500 ####[facility] [address] [place], [address] NEUT% Normal 47-70 [facility] Comment on above: Result Comment: Canc elled via OM: Order cancelled - Patient discharged Performed By: #### L 100.0100, L500.2500 ####[facility] [address] [place], [address] PLT Normal 150-450 [facility] Comment on above: Result Comment: Canc elled via OM: Order cancelled - Patient discharged Performed By: #### L 100.0100, L500.2500 ####[facility] [address] [place], [address] RBC Normal 4.2-5.4 [facility] Comment on above: Result Comment: Canc elled via OM: Order cancelled - Patient discharged Performed By: #### L 100.0100, L500.2500 ####[facility] [address] [place], [address] RDW CV Normal 11.6-14.6 [facility] Comment on above: Result Comment: Canc elled via OM: Order cancelled - Patient discharged Performed By: #### L 100.0100, L500.2500 ####[facility] [address] [place], [address] RDW SD Normal 35.1-43.9 [facility] Comment on above: Result Comment: Canc elled via OM: Order cancelled - Patient discharged Performed By: #### L 100.0100, L500.2500 ####[facility] [address] [place], [address] WBC Normal 4.4-11.0 [facility] Comment on above: Result Comment: Canc elled via OM: Order cancelled - Patient discharged Performed By: #### L 100.0100, L500.2500 ####[facility] [address] [place], [address] 12 Lead EKG performed by BMS on 07-26-2024 12 Lead EKG performed by BMS Normal [facility] Cardiology Visit Reporton Cardiology Visit Report Normal [facility] Absolute lymphocyte countOrd ered By: Aleks Marshall on 07-22-2024 Lymphocytes Auto (Unsp spec) [#/Vol] 1.46 10*3/uL 0.83-4.51 [facility] Absolute neutrophil countOrd ered By: Aleks Marshall on 07-22-2024 Absolute neutrophil count 1.6 X10^3/uL Low 2.0-7.7 [facility] Anion gap [Moles/Vol]Ordered By: Aleks Marshall on 07-22-2024 Anion gap in Serum or Plasma 12 09-23 [facility] Anion gap in Serum or Plasma Ordered By: Aleks Marshall on 07-22-2024 Anion gap [Moles/Vol] 12 mmol/L 09-23 [facility] Automated lymphocyte count a s percentage of total leukocytesOrdered By: Aleks Marshall on 07-22-2024 Lymphocytes/100 WBC Auto (Unsp spec) 35.4 % 19-41 [facility] BUN/creatinine ratioOrdered By: Aleks Marshall on 07-22-2024 Urea nitrogen/Creatinine [Mass ratio] 37.8 mg/mg High 10-20 [facility] BUN/creatinine ratio 37.8 RATIO High 10-20 [facility] Basic Metabolic Profile (BMP )on 07-22-2024 EST GFR - AA TNP Normal >60 [facility] Comment on above: Performed By: #### L 100.0100, L500.2500 ####[facility] [address] [place], [address] Basophil percentageOrdered B y: Aleks Marshall on 07-22-2024 Basophils/100 WBC (Bld) 0.5 % 0-1 [facility] Basophil percentage 0.5 % 0-1 [facility] CBC W/Diff, Automatedon 07-10 Absolute Lymph 1.46 X10 3/uL Normal 0.83-4.51 [facility] Comment on above: Performed By: #### L 100.0100, L500.2500 ####[facility] [address] [place], [address] Absolute Neut 1.6 X10 3/uL Low 2.0-7.7 [facility] Comment on above: Performed By: #### L 100.0100, L500.2500 ####[facility] [address] [place], [address] Basophils/100 WBC (Bld) 0.5 % Normal 0-1 [facility] Comment on above: Performed By: #### L 100.0100, L500.2500 ####[facility] [address] [place], [address] Eosinophils/100 WBC (Bld) 9.0 % High 0-5 [facility] Comment on above: Performed By: #### L 100.0100, L500.2500 ####[facility] [address] [place], [address] Erythrocyte distribution width (RBC) [Ratio] 14.8 % High 11.6-14.6 [facility] Comment on above: Performed By: #### L 100.0100, L500.2500 ####[facility] [address] [place], [address] Hematocrit (Bld) [Volume fraction] 26.5 % Low 37-47 [facility] Comment on above: Performed By: #### L 100.0100, L500.2500 ####[facility] [address] [place], [address] Hemoglobin (Bld) [Mass/Vol] 8.4 g/dL Low 12.0-15.0 [facility] Comment on above: Performed By: #### L 100.0100, L500.2500 ####[facility] [address] [place], [address] IG% 0.500 Normal 0.0-0.9 [facility] Comment on above: Result Comment: IG% - Immature Granulocytes (promyelocytes, myelocytes andmetamyelocytes) > 1% indicates that a LEFT SHIFT is Present. Performed By: #### L 100.0100, L500.2500 ####[facility] [address] [place], [address] Lymphocytes/100 WBC (Bld) 35.4 % Normal 19-41 [facility] Comment on above: Performed By: #### L 100.0100, L500.2500 ####[facility] [address] [place], [address] MCH (RBC) [Entitic mass] 30.3 pg Normal 27.0-32.0 [facility] Comment on above: Performed By: #### L 100.0100, L500.2500 ####[facility] [address] [place], [address] MCHC (RBC) [Mass/Vol] 31.7 g/dL Low 32-36 [facility] Comment on above: Performed By: #### L 100.0100, L500.2500 ####[facility] [address] [place], [address] MCV (RBC) [Entitic vol] 95.7 fL Normal 81-99 [facility] Comment on above: Performed By: #### L 100.0100, L500.2500 ####[facility] [address] [place], [address] Monocytes/100 WBC (Bld) 15.3 % High 0-10 [facility] Comment on above: Performed By: #### L 100.0100, L500.2500 ####[facility] [address] [place], [address] Neutrophils/100 WBC (Bld) 39.3 % Low 47-70 [facility] Comment on above: Performed By: #### L 100.0100, L500.2500 ####[facility] [address] [place], [place], [address] Nucleated RBC (Bld) [#/Vol] 0 10*3/uL Normal 0-5 [facility] Comment on above: Performed By: #### L 100.0100, L500.2500 ####[facility] [address] [place], [address] Platelet mean volume (Bld) [Entitic vol] 9.8 fL Normal 6.2-12.0 [facility] Comment on above: Performed By: #### L 100.0100, L500.2500 ####[facility] [address] [place], [address] Platelets (Bld) [#/Vol] 210 10*3/uL Normal 150-450 [facility] Comment on above: Performed By: #### L 100.0100, L500.2500 ####[facility] [address] [place], [address] RBC (Bld) [#/Vol] 2.77 10*6/uL Low 4.2-5.4 [facility] Comment on above: Performed By: #### L 100.0100, L500.2500 ####[facility] [address] [place], [address] RDW SD 52.6 fl High 35.1-43.9 [facility] Comment on above: Performed By: #### L 100.0100, L500.2500 ####[facility] [address] [place], [address] WBC (Bld) [#/Vol] 4.1 10*3/uL Low 4.4-11.0 [facility] Comment on above: Performed By: #### L 100.0100, L500.2500 ####[facility] [address] [place], [address] Calcium [Mass/Vol]Ordered By : Aleks Marshall on 07-22-2024 Serum or plasma calcium measurement (mass/volume) 9.3 mg/dL 7.6-11.0 [facility] Carbon dioxide, total [Moles /volume] in Central venous bloodOrdered By: Aleks Marshall on 07-22-2024 CO2 [Moles/Vol] 25.1 mmol/L 21.0-32.0 [facility] Carbon dioxide, total [Moles/volume] in Central venous blood 25.1 mmol/L 21.0-32.0 [facility] Chloride assayOrdered By: Yobany Marshall on 07-22-2024 Chloride [Moles/Vol] 101 mmol/L 98-108 [facility] Chloride assay 101 mmol/L 98-108 [facility] Creatinine [Mass/Vol]Ordered By: Aleks Marshall on 07-22-2024 Serum creatinine measurement (mass/volume) 0.76 mg/dL 0.70-1.20 [facility] Eosinophil percentageOrdered By: Aleks Marshall on 07-22-2024 Eosinophils/100 WBC (Bld) 9.0 % High 0-5 [facility] Eosinophil percentage 9.0 % High 0-5 [facility] Erythrocyte distribution wid th (RBC) [Ratio]Ordered By: Aleks Marshall on 07-22-2024 Erythrocyte distribution width ratio 14.8 % High 11.6-14.6 [facility] Erythrocyte distribution wid th ratioOrdered By: Aleks Marshall on 07-22-2024 Erythrocyte distribution width (RBC) [Ratio] 14.8 % High 11.6-14.6 [facility] Erythrocyte distribution wid th standard deviationOrdered By: Aleks Marshall on 07-22-2024 Erythrocyte distribution width (RBC) [Ratio] 52.6 fl High 35.1-43.9 [facility] Erythrocyte distribution width standard deviation 52.6 fl High 35.1-43.9 [facility] Estimated glomerular filtrat ion rate (GFR) AmericanOrdered By: Aleks Marshall on 07-22-2024 Estimated glomerular filtration rate (GFR) TNP [facility] Estimation of creatinine mary ellen aranceOrdered By: Aleks Marshall 07-22-2024 Estimation of creatinine clearance 44.34 ml/min Low 50-250 [facility] GFR/1.73 sq M.predicted jane g non-blacks MDRD (S/P/Bld) [Vol rate/Area]Ordered By: Aleks Marshall 07-22-2024 Glomerular filtration rate (GFR) estimation/1.73 sq m using serum, plasma, or whole b 75 >60 [facility] Glomerular filtration rate ( GFR) estimation/1.73 sq m using serum, plasma, or whole bOrdered By: Aleks Marshall 07-22-2024 GFR/1.73 sq M.predicted among non-blacks MDRD (S/P/Bld) [Vol rate/Area] 75 mL/min/{1.73_m2} >60 [facility] Glucose [Mass/Vol]Ordered By : Aleks Marshall 07-22-2024 Serum glucose measurement (mass/volume) 86 mg/dL 70-99 [facility] Hematocrit Auto (Bld) [Volum e fraction]Ordered By: Aleks Marshall 07-22-2024 Hematocrit (Bld) [Volume fraction] 26.5 % Low 37-47 [facility] Automated blood hematocrit (percentage) 26.5 % Low 37-47 [facility] Hemoglobin measurementOrdere d By: Aleks Marshall 07-22-2024 Hemoglobin (Bld) [Mass/Vol] 8.4 g/dL Low 12.0-15.0 [facility] Hemoglobin measurement 8.4 g/dL Low 12.0-15.0 [facility] Immature granulocytes/100 WB C Auto (Bld)Ordered By: Aleks Marshall on 07-22-2024 Immature granulocytes/100 WBC (Bld) 0.500 % 0.0-0.9 [facility] Automated immature granulocyte percentage 0.500 % 0.0-0.9 [facility] Lymphocytes Auto (Unsp spec) [#/Vol]Ordered By: Aleks Marshall on 07-22-2024 Absolute lymphocyte count 1.46 X10^3/uL 0.83-4.51 [facility] Lymphocytes/100 WBC Auto (Un sp spec)Ordered By: Aleks Marshall on 07-22-2024 Automated lymphocyte count as percentage of total leukocytes 35.4 % 19-41 [facility] MCV (RBC) [Entitic vol]Order ed By: Aleks Marshall on 07-22-2024 MCV (mean corpuscular volume) determination 95.7 fL 81-99 [facility] MCV (mean corpuscular volume ) determinationOrdered By: Aleks Marshall on 07-22-2024 MCV (RBC) [Entitic vol] 95.7 fL 81-99 [facility] Mean corpuscular hemoglobin (MCH) determinationOrdered By: Aleks Marshall on 07-22-2024 MCH (RBC) [Entitic mass] 30.3 pg 27.0-32.0 [facility] Mean corpuscular hemoglobin (MCH) determination 30.3 pg 27.0-32.0 [facility] Mean corpuscular hemoglobin concentration (MCHC) determinationOrdered By: Aleks Marshall on 07-22-2024 Mean corpuscular hemoglobin concentration (MCHC) determination 31.7 g/dL Low 32-36 [facility] Mean platelet volume determi nationOrdered By: Aleks Marshall on 07-22-2024 Mean platelet volume determination 9.8 fl 6.2-12.0 [facility] Monocyte percentageOrdered B y: Aleks Marshall on 07-22-2024 Monocytes/100 WBC (Bld) 15.3 % High 0-10 [facility] Monocyte percentage 15.3 % High 0-10 [facility] Neutrophil percentageOrdered By: Aleks Marshall on 07-22-2024 Neutrophils/100 WBC (Bld) 39.3 % Low 47-70 [facility] Neutrophil percentage 39.3 % Low 47-70 [facility] Nucleated red blood cell per centageOrdered By: Aleks Marshall on 07-22-2024 Nucleated red blood cell percentage 0 % 0-5 [facility] Platelet countOrdered By: Yobany Marshall on 07-22-2024 Platelets (Bld) [#/Vol] 210 10*3/uL 150-450 [facility] Platelet count 210 K/mm3 150-450 [facility] Potassium (Unsp spec) [Mass/ Vol]Ordered By: Aleks Marshall on 07-22-2024 Potassium measurement (mass/volume) 4.2 mmol/L 3.3-5.1 [facility] Potassium measurement (mass/ volume)Ordered By: Aleks Marshall on 07-22-2024 Potassium (Unsp spec) [Mass/Vol] 4.2 mmol/L 3.3-5.1 [facility] RBC Auto (Bld) [#/Vol]Ordere d By: Aleks Marshall on 07-22-2024 RBC (Bld) [#/Vol] 2.77 10*6/uL Low 4.2-5.4 [facility] Automated blood erythrocyte count 2.77 M/mm3 Low 4.2-5.4 [facility] Serum creatinine measurement (mass/volume)Ordered By: Aleks Marshall on 07-22-2024 Creatinine [Mass/Vol] 0.76 mg/dL 0.70-1.20 [facility] Serum glucose measurement (m ass/volume)Ordered By: Aleks Marshall on 07-22-2024 Glucose [Mass/Vol] 86 mg/dL 70-99 [facility] Serum or plasma calcium manuel urement (mass/volume)Ordered By: Aleks Marshall on 07-22-2024 Calcium [Mass/Vol] 9.3 mg/dL 7.6-11.0 [facility] Serum or plasma urea nitroge n measurement (mass/volume)Ordered By: Aleks Marshall on 07-22-2024 Urea nitrogen [Mass/Vol] 29 mg/dL High 4-19 [facility] Sodium levelOrdered By: Aleks Marshall on 07-22-2024 Sodium [Moles/Vol] 138 mmol/L 133-145 [facility] Sodium level 138 mmol/L 133-145 [facility] Urea nitrogen [Mass/Vol]Orde red By: Aleks Marshall on 07-22-2024 Serum or plasma urea nitrogen measurement (mass/volume) 29 mg/dL High 4-19 [facility] White blood cell (WBC) count Ordered By: Aleks Marshall on 07-22-2024 WBC (Bld) [#/Vol] 4.1 10*3/uL Low 4.4-11.0 [facility] White blood cell (WBC) count 4.1 K/mm3 Low 4.4-11.0 [facility] Chest PA and Lateralon 07-20 Chest PA and Lateral Normal [facility] HH, Hemoglobin AND Hematocri ton 07-19-2024 Hematocrit (Bld) [Volume fraction] 26.4 % Low 37-47 [facility] Comment on above: Performed By: #### L 100.0600 ####[facility] [address] [place], [address] Hemoglobin (Bld) [Mass/Vol] 8.4 g/dL Low 12.0-15.0 [facility] Comment on above: Performed By: #### L 100.0600 ####[facility] [address] [place], [address] RESPIRATORY PANEL MOLECULARo n 07-18-2024 RP PANEL Normal [facility] Comment on above: Performed By: #### M 100.638 ####[facility] [address] [place], [address] COVID 19 AG RAPID (RN COLLEC T)on 07-17-2024 SARS-CoV-2 (COVID-19) RNA RHYS+probe Ql (Unsp spec) Normal [facility] Comment on above: Performed By: #### M 100.505 ####[facility] [address] [place], [address] COVID-19 virus antigen assay Ordered By: Aleks Marshall on 07-17-2024 SARS-CoV-2 (COVID-19) Ag IA.rapid Ql (Resp) [facility] Respiratory pathogens detect ion panel by molecular detection methodOrdered By: Aleks Marshall on 07-17-2024 Respiratory pathogens DNA and RNA panel RHYS+probe (Resp) [facility] HH, Hemoglobin AND Hematocri ton 07-16-2024 Hematocrit (Bld) [Volume fraction] 27.1 % Low 37-47 [facility] Comment on above: Performed By: #### L 100.0600 ####[facility] [address] [place], [address] Hemoglobin (Bld) [Mass/Vol] 8.6 g/dL Low 12.0-15.0 [facility] Comment on above: Performed By: #### L 100.0600 ####[facility] [address] [place], [address] Basic Metabolic Profile (BMP )on 07-15-2024 EST GFR - AA TNP Normal >60 [facility] Comment on above: Performed By: #### L 500.2500, L100.0100 ####[facility] [address] [place], [address] CBC W/Diff, Automatedon - Absolute Lymph 1.56 X10 3/uL Normal 0.83-4.51 [facility] Comment on above: Performed By: #### L 500.2500, L100.0100 ####[facility] [address] [place], [address] Absolute Neut 2.9 X10 3/uL Normal 2.0-7.7 [facility] Comment on above: Performed By: #### L 500.2500, L100.0100 ####[facility] [address] [place], [address] Basophils/100 WBC (Bld) 1.1 % High 0-1 [facility] Comment on above: Performed By: #### L 500.2500, L100.0100 ####[facility] [address] [place], [address] Eosinophils/100 WBC (Bld) 4.7 % Normal 0-5 [facility] Comment on above: Performed By: #### L 500.2500, L100.0100 ####[facility] [address] [place], [address] Erythrocyte distribution width (RBC) [Ratio] 15.1 % High 11.6-14.6 [facility] Comment on above: Performed By: #### L 500.2500, L100.0100 ####[facility] [address] [place], [address] Hematocrit (Bld) [Volume fraction] 26.9 % Low 37-47 [facility] Comment on above: Performed By: #### L 500.2500, L100.0100 ####[facility] [address] [place], [address] Hemoglobin (Bld) [Mass/Vol] 8.4 g/dL Low 12.0-15.0 [facility] Comment on above: Performed By: #### L 500.2500, L100.0100 ####[facility] [address] [place], [address] IG% 0.900 Normal 0.0-0.9 [facility] Comment on above: Result Comment: IG% - Immature Granulocytes (promyelocytes, myelocytes andmetamyelocytes) > 1% indicates that a LEFT SHIFT is Present. Performed By: #### L 500.2500, L100.0100 ####[facility] [address] [place], [address] Lymphocytes/100 WBC (Bld) 28.5 % Normal 19-41 [facility] Comment on above: Performed By: #### L 500.2500, L100.0100 ####[facility] [address] [place], [address] MCH (RBC) [Entitic mass] 30.0 pg Normal 27.0-32.0 [facility] Comment on above: Performed By: #### L 500.2500, L100.0100 ####[facility] [address] [place], [address] MCHC (RBC) [Mass/Vol] 31.2 g/dL Low 32-36 [facility] Comment on above: Performed By: #### L 500.2500, L100.0100 ####[facility] [address] [place], [address] MCV (RBC) [Entitic vol] 96.1 fL Normal 81-99 [facility] Comment on above: Performed By: #### L 500.2500, L100.0100 ####[facility] [address] [place], [address] Monocytes/100 WBC (Bld) 11.9 % High 0-10 [facility] Comment on above: Performed By: #### L 500.2500, L100.0100 ####[facility] [address] [place], [address] Neutrophils/100 WBC (Bld) 52.9 % Normal 47-70 [facility] Comment on above: Performed By: #### L 500.2500, L100.0100 ####[facility] [address] [place], [address] Nucleated RBC (Bld) [#/Vol] 0 10*3/uL Normal 0-5 [facility] Comment on above: Performed By: #### L 500.2500, L100.0100 ####[facility] [address] [place], [address] Platelet mean volume (Bld) [Entitic vol] 9.3 fL Normal 6.2-12.0 [facility] Comment on above: Performed By: #### L 500.2500, L100.0100 ####[facility] [address] [place], [address] Platelets (Bld) [#/Vol] 298 10*3/uL Normal 150-450 [facility] Comment on above: Performed By: #### L 500.2500, L100.0100 ####[facility] [address] [place], [address] RBC (Bld) [#/Vol] 2.80 10*6/uL Low 4.2-5.4 [facility] Comment on above: Performed By: #### L 500.2500, L100.0100 ####[facility] [address] [place], [address] RDW SD 53.6 fl High 35.1-43.9 [facility] Comment on above: Performed By: #### L 500.2500, L100.0100 ####[facility] [address] [place], [address] WBC (Bld) [#/Vol] 5.5 10*3/uL Normal 4.4-11.0 [facility] Comment on above: Performed By: #### L 500.2500, L100.0100 ####[facility] [address] [place], [address] Stool Occult Blood iFOBon STOB Normal [facility] Comment on above: Performed By: #### M 100.7900 ####[facility] [address] [place], [address] Stool gastrointestinal hemog lobin detection by immunologic methodOrdered By: Aleks Marshall on 07-15-2024 Lower GI hemoglobin IA Ql (Stl) [facility] Basic Metabolic Profile (BMP )on 07-12-2024 BUN Normal 7-18 [facility] Comment on above: Result Comment: Canc elled via OM: Order cancelled - Patient discharged Performed By: #### L 500.2500, L100.0100 ####[facility] [address] [place], [address] BUN/CRE Normal 10-20 [facility] Comment on above: Result Comment: Canc elled via OM: Order cancelled - Patient discharged Performed By: #### L 500.2500, L100.0100 ####[facility] [address] [place], [address] CA,Total Normal 8.5-10.1 [facility] Comment on above: Result Comment: Canc elled via OM: Order cancelled - Patient discharged Performed By: #### L 500.2500, L100.0100 ####[facility] [address] [place], [address] CL Normal 98-107 [facility] Comment on above: Result Comment: Canc elled via OM: Order cancelled - Patient discharged Performed By: #### L 500.2500, L100.0100 ####[facility] [address] [place], [address] CO2 Normal 21.0-32.0 [facility] Comment on above: Result Comment: Canc elled via OM: Order cancelled - Patient discharged Performed By: #### L 500.2500, L100.0100 ####[facility] [address] [place], [address] CREAT,SERUM Normal 0.55-1.02 [facility] Comment on above: Result Comment: Canc elled via OM: Order cancelled - Patient discharged Performed By: #### L 500.2500, L100.0100 ####[facility] [address] [place], [address] EST GFR Normal >60 [facility] Comment on above: Result Comment: Canc elled via OM: Order cancelled - Patient discharged Performed By: #### L 500.2500, L100.0100 ####[facility] [address] [place], [address] EST GFR - AA Normal >60 [facility] Comment on above: Result Comment: Canc elled via OM: Order cancelled - Patient discharged Performed By: #### L 500.2500, L100.0100 ####[facility] [address] [place], [address] GAP Normal 5-15 [facility] Comment on above: Result Comment: Canc elled via OM: Order cancelled - Patient discharged Performed By: #### L 500.2500, L100.0100 ####[facility] [address] [place], [address] GLU Normal 74-106 [facility] Comment on above: Result Comment: Canc elled via OM: Order cancelled - Patient discharged Performed By: #### L 500.2500, L100.0100 ####[facility] [address] [place], [address] Potassium Normal 3.5-5.1 [facility] Comment on above: Result Comment: Canc elled via OM: Order cancelled - Patient discharged Performed By: #### L 500.2500, L100.0100 ####[facility] [address] [place], [address] Basic Metabolic Profile (BMP) Normal 136-145 [facility] Comment on above: Result Comment: Canc elled via OM: Order cancelled - Patient discharged Performed By: #### L 500.2500, L100.0100 ####[facility] [address] [place], [address] CBC W/Diff, Automatedon 03-0 Absolute Neut Normal 2.0-7.7 [facility] Comment on above: Result Comment: Canc elled via OM: Order cancelled - Patient discharged Performed By: #### L 500.2500, L100.0100 ####[facility] [address] [place], [address] HCT Normal 37-47 [facility] Comment on above: Result Comment: Canc elled via OM: Order cancelled - Patient discharged Performed By: #### L 500.2500, L100.0100 ####[facility] [address] [place], [address] HGB Normal 12.0-15.0 [facility] Comment on above: Result Comment: Canc elled via OM: Order cancelled - Patient discharged Performed By: #### L 500.2500, L100.0100 ####[facility] [address] [place], [address] MCH Normal 27.0-32.0 [facility] Comment on above: Result Comment: Canc elled via OM: Order cancelled - Patient discharged Performed By: #### L 500.2500, L100.0100 ####[facility] [address] [place], [address] MCHC Normal 32-36 [facility] Comment on above: Result Comment: Canc elled via OM: Order cancelled - Patient discharged Performed By: #### L 500.2500, L100.0100 ####[facility] [address] [place], [address] MCV Normal 81-99 [facility] Comment on above: Result Comment: Canc elled via OM: Order cancelled - Patient discharged Performed By: #### L 500.2500, L100.0100 ####[facility] [address] [place], [address] NEUT% Normal 47-70 [facility] Comment on above: Result Comment: Canc elled via OM: Order cancelled - Patient discharged Performed By: #### L 500.2500, L100.0100 ####[facility] [address] [place], [address] PLT Normal 150-450 [facility] Comment on above: Result Comment: Canc elled via OM: Order cancelled - Patient discharged Performed By: #### L 500.2500, L100.0100 ####[facility] [address] [place], [address] RBC Normal 4.2-5.4 [facility] Comment on above: Result Comment: Canc elled via OM: Order cancelled - Patient discharged Performed By: #### L 500.2500, L100.0100 ####[facility] [address] [place], [address] RDW CV Normal 11.6-14.6 [facility] Comment on above: Result Comment: Canc elled via OM: Order cancelled - Patient discharged Performed By: #### L 500.2500, L100.0100 ####[facility] [address] [place], [address] RDW SD Normal 35.1-43.9 [facility] Comment on above: Result Comment: Canc elled via OM: Order cancelled - Patient discharged Performed By: #### L 500.2500, L100.0100 ####[facility] [address] [place], [address] WBC Normal 4.4-11.0 [facility] Comment on above: Result Comment: Canc elled via OM: Order cancelled - Patient discharged Performed By: #### L 500.2500, L100.0100 ####[facility] [address] [place], [address] Basic Metabolic Profile (BMP )on 07-08-2024 Calcium [Mass/Vol] 9.1 mg/dL Normal 7.6-11.0 [facility] Comment on above: Performed By: #### L 100.0100, L500.2500 ####[facility] [address] [place], [address] Chloride [Moles/Vol] 100 mmol/L Normal 98-107 [facility] Comment on above: Performed By: #### L 100.0100, L500.2500 ####[facility] [address] [place], [address] CO2 [Moles/Vol] 26.1 mmol/L Normal 21.0-32.0 [facility] Comment on above: Performed By: #### L 100.0100, L500.2500 ####[facility] [address] [place], [address] EST GFR - AA TNP Normal >60 [facility] Comment on above: Performed By: #### L 100.0100, L500.2500 ####[facility] [address] [place], [address] GAP 11 Normal 5-15 [facility] Comment on above: Performed By: #### L 100.0100, L500.2500 ####[facility] [address] [place], [address] Potassium [Moles/Vol] 4.0 mmol/L Normal 3.5-5.1 [facility] Comment on above: Performed By: #### L 100.0100, L500.2500 ####[facility] [address] [place], [address] Sodium [Moles/Vol] 137 mmol/L Normal 136-145 [facility] Comment on above: Performed By: #### L 100.0100, L500.2500 ####[facility] [address] [place], [address] CBC W/Diff, Automatedon 02-2 Absolute Lymph 1.30 X10 3/uL Normal 0.83-4.51 [facility] Comment on above: Performed By: #### L 100.0100, L500.2500 ####[facility] [address] [place], [address] Absolute Neut 3.3 X10 3/uL Normal 2.0-7.7 [facility] Comment on above: Performed By: #### L 100.0100, L500.2500 ####[facility] [address] [place], [address] Basophils/100 WBC (Bld) 1.6 % High 0-1 [facility] Comment on above: Performed By: #### L 100.0100, L500.2500 ####[facility] [address] [place], [address] Eosinophils/100 WBC (Bld) 5.2 % High 0-5 [facility] Comment on above: Performed By: #### L 100.0100, L500.2500 ####[facility] [address] [place], [address] Erythrocyte distribution width (RBC) [Ratio] 15.2 % High 11.6-14.6 [facility] Comment on above: Performed By: #### L 100.0100, L500.2500 ####[facility] [address] [place], [address] Hematocrit (Bld) [Volume fraction] 27.6 % Low 37-47 [facility] Comment on above: Performed By: #### L 100.0100, L500.2500 ####[facility] [address] [place], [address] Hemoglobin (Bld) [Mass/Vol] 8.7 g/dL Low 12.0-15.0 [facility] Comment on above: Performed By: #### L 100.0100, L500.2500 ####[facility] [address] [place], [address] IG% 1.400 High 0.0-0.9 [facility] Comment on above: Result Comment: IG% - Immature Granulocytes (promyelocytes, myelocytes andmetamyelocytes) > 1% indicates that a LEFT SHIFT is Present. Performed By: #### L 100.0100, L500.2500 ####[facility] [address] [place], [address] Lymphocytes/100 WBC (Bld) 22.6 % Normal 19-41 [facility] Comment on above: Performed By: #### L 100.0100, L500.2500 ####[facility] [address] [place], [address] MCH (RBC) [Entitic mass] 30.2 pg Normal 27.0-32.0 [facility] Comment on above: Performed By: #### L 100.0100, L500.2500 ####[facility] [address] [place], [address] MCHC (RBC) [Mass/Vol] 31.5 g/dL Low 32-36 [facility] Comment on above: Performed By: #### L 100.0100, L500.2500 ####[facility] [address] [place], [address] MCV (RBC) [Entitic vol] 95.8 fL Normal 81-99 [facility] Comment on above: Performed By: #### L 100.0100, L500.2500 ####[facility] [address] [place], [address] Monocytes/100 WBC (Bld) 11.5 % High 0-10 [facility] Comment on above: Performed By: #### L 100.0100, L500.2500 ####[facility] [address] [place], [address] Neutrophils/100 WBC (Bld) 57.7 % Normal 47-70 [facility] Comment on above: Performed By: #### L 100.0100, L500.2500 ####[facility] [address] [place], [address] Nucleated RBC (Bld) [#/Vol] 0 10*3/uL Normal 0-5 [facility] Comment on above: Performed By: #### L 100.0100, L500.2500 ####[facility] [address] [place], [address] Platelet mean volume (Bld) [Entitic vol] 9.4 fL Normal 6.2-12.0 [facility] Comment on above: Performed By: #### L 100.0100, L500.2500 ####[facility] [address] [place], [address] Platelets (Bld) [#/Vol] 362 10*3/uL Normal 150-450 [facility] Comment on above: Performed By: #### L 100.0100, L500.2500 ####[facility] [address] [place], [address] RBC (Bld) [#/Vol] 2.88 10*6/uL Low 4.2-5.4 [facility] Comment on above: Performed By: #### L 100.0100, L500.2500 ####[facility] [address] [place], [address] RDW SD 53.6 fl High 35.1-43.9 [facility] Comment on above: Performed By: #### L 100.0100, L500.2500 ####[facility] [address] [place], [address] WBC (Bld) [#/Vol] 5.8 10*3/uL Normal 4.4-11.0 [facility] Comment on above: Performed By: #### L 100.0100, L500.2500 ####[facility] [address] [place], [address] Basic Metabolic Profile (BMP )on 07-05-2024 BUN Normal 7-18 [facility] Comment on above: Result Comment: Canc elled via OM: Order cancelled - Patient discharged Performed By: #### L 100.0100, L500.2500 ####[facility] [address] [place], [address] BUN/CRE Normal 10-20 [facility] Comment on above: Result Comment: Canc elled via OM: Order cancelled - Patient discharged Performed By: #### L 100.0100, L500.2500 ####[facility] [address] [place], [address] CA,Total Normal 8.5-10.1 [facility] Comment on above: Result Comment: Canc elled via OM: Order cancelled - Patient discharged Performed By: #### L 100.0100, L500.2500 ####[facility] [address] [place], [address] CL Normal 98-107 [facility] Comment on above: Result Comment: Canc elled via OM: Order cancelled - Patient discharged Performed By: #### L 100.0100, L500.2500 ####[facility] [address] [place], [address] CO2 Normal 21.0-32.0 [facility] Comment on above: Result Comment: Canc elled via OM: Order cancelled - Patient discharged Performed By: #### L 100.0100, L500.2500 ####[facility] [address] [place], [address] CREAT,SERUM Normal 0.55-1.02 [facility] Comment on above: Result Comment: Canc elled via OM: Order cancelled - Patient discharged Performed By: #### L 100.0100, L500.2500 ####[facility] [address] [place], [address] EST GFR Normal >60 [facility] Comment on above: Result Comment: Canc elled via OM: Order cancelled - Patient discharged Performed By: #### L 100.0100, L500.2500 ####[facility] [address] [place], [address] EST GFR - AA Normal >60 [facility] Comment on above: Result Comment: Canc elled via OM: Order cancelled - Patient discharged Performed By: #### L 100.0100, L500.2500 ####[facility] [address] [place], [address] GAP Normal 5-15 [facility] Comment on above: Result Comment: Canc elled via OM: Order cancelled - Patient discharged Performed By: #### L 100.0100, L500.2500 ####[facility] [address] [place], [address] GLU Normal 74-106 [facility] Comment on above: Result Comment: Canc elled via OM: Order cancelled - Patient discharged Performed By: #### L 100.0100, L500.2500 ####[facility] [address] [place], [address] Potassium Normal 3.5-5.1 [facility] Comment on above: Result Comment: Canc elled via OM: Order cancelled - Patient discharged Performed By: #### L 100.0100, L500.2500 ####[facility] [address] [place], [address] Basic Metabolic Profile (BMP) Normal 136-145 [facility] Comment on above: Result Comment: Canc elled via OM: Order cancelled - Patient discharged Performed By: #### L 100.0100, L500.2500 ####[facility] [address] [place], [address] CBC W/Diff, Automatedon 02-2 Absolute Neut Normal 2.0-7.7 [facility] Comment on above: Result Comment: Canc elled via OM: Order cancelled - Patient discharged Performed By: #### L 100.0100, L500.2500 ####[facility] [address] [place], [address] HCT Normal 37-47 [facility] Comment on above: Result Comment: Canc elled via OM: Order cancelled - Patient discharged Performed By: #### L 100.0100, L500.2500 ####[facility] [address] [place], [address] HGB Normal 12.0-15.0 [facility] Comment on above: Result Comment: Canc elled via OM: Order cancelled - Patient discharged Performed By: #### L 100.0100, L500.2500 ####[facility] [address] [place], [address] MCH Normal 27.0-32.0 [facility] Comment on above: Result Comment: Canc elled via OM: Order cancelled - Patient discharged Performed By: #### L 100.0100, L500.2500 ####[facility] [address] [place], [address] MCHC Normal 32-36 [facility] Comment on above: Result Comment: Canc elled via OM: Order cancelled - Patient discharged Performed By: #### L 100.0100, L500.2500 ####[facility] [address] [place], [address] MCV Normal 81-99 [facility] Comment on above: Result Comment: Canc elled via OM: Order cancelled - Patient discharged Performed By: #### L 100.0100, L500.2500 ####[facility] [address] [place], [address] NEUT% Normal 47-70 [facility] Comment on above: Result Comment: Canc elled via OM: Order cancelled - Patient discharged Performed By: #### L 100.0100, L500.2500 ####[facility] [address] [place], [address] PLT Normal 150-450 [facility] Comment on above: Result Comment: Canc elled via OM: Order cancelled - Patient discharged Performed By: #### L 100.0100, L500.2500 ####[facility] [address] [place], [address] RBC Normal 4.2-5.4 [facility] Comment on above: Result Comment: Canc elled via OM: Order cancelled - Patient discharged Performed By: #### L 100.0100, L500.2500 ####[facility] [address] [place], [address] RDW CV Normal 11.6-14.6 [facility] Comment on above: Result Comment: Canc elled via OM: Order cancelled - Patient discharged Performed By: #### L 100.0100, L500.2500 ####[facility] [address] [place], [address] RDW SD Normal 35.1-43.9 [facility] Comment on above: Result Comment: Canc elled via OM: Order cancelled - Patient discharged Performed By: #### L 100.0100, L500.2500 ####[facility] [address] [place], [address] WBC Normal 4.4-11.0 [facility] Comment on above: Result Comment: Canc elled via OM: Order cancelled - Patient discharged Performed By: #### L 100.0100, L500.2500 ####[facility] [address] [place], [address] Basic Metabolic Profile (BMP )on 07-01-2024 BUN/CRE 22.4 RATIO High - [facility] Comment on above: Performed By: #### L 500.2500, L100.0100 ####[facility] [address] [place], [address] CA,Total 9.4 mg/dL Normal 8.5-10.1 [facility] Comment on above: Performed By: #### L 500.2500, L100.0100 ####[facility] [address] [place], [address] Chloride [Moles/Vol] 100 mmol/L Normal 98-107 [facility] Comment on above: Performed By: #### L 500.2500, L100.0100 ####[facility] [address] [place], [address] CO2 [Moles/Vol] 29.0 mmol/L Normal 21.0-32.0 [facility] Comment on above: Performed By: #### L 500.2500, L100.0100 ####[facility] [address] [place], [address] Creatinine [Mass/Vol] 0.72 mg/dL Normal 0.55-1.02 [facility] Comment on above: Result Comment: The validity of the calculated GFR GFRAA in patients over70 years has not been determined. Clinical correlation isessential. Performed By: #### L 500.2500, L100.0100 ####[facility] [address] [place], [address] ECRCL 44.27 ml/min Normal [facility] Comment on above: Performed By: #### L 500.2500, L100.0100 ####[facility] [address] [place], [address] EST GFR - AA 99 mL/min Normal >60 [facility] Comment on above: Result Comment: Afri can [place] GFR Calc Performed By: #### L 500.2500, L100.0100 ####[facility] [address] [place], [address] GAP 8 Normal 5-15 [facility] Comment on above: Performed By: #### L 500.2500, L100.0100 ####[facility] [address] [place], [address] GFR/1.73 sq M.predicted among non-blacks MDRD (S/P/Bld) [Vol rate/Area] 82 mL/min/{1.73_m2} Normal >60 [facility] Comment on above: Result Comment: Non- GFR Calc Performed By: #### L 500.2500, L100.0100 ####[facility] [address] [place], [address] Glucose [Mass/Vol] 102 mg/dL Normal 74-106 [facility] Comment on above: Result Comment: Fast ing Glucose result from 100 to 125 mg/dLsuggests IMPAIRED HOMEOSTASIS per A.D.A. criteria. Performed By: #### L 500.2500, L100.0100 ####[facility] [address] [place], [address] Potassium [Moles/Vol] 4.4 mmol/L Normal 3.5-5.1 [facility] Comment on above: Performed By: #### L 500.2500, L100.0100 ####[facility] [address] [place], [address] Sodium [Moles/Vol] 137 mmol/L Normal 136-145 [facility] Comment on above: Performed By: #### L 500.2500, L100.0100 ####[facility] [address] [place], [address] Urea nitrogen [Mass/Vol] 16 mg/dL Normal 7-18 [facility] Comment on above: Performed By: #### L 500.2500, L100.0100 ####[facility] [address] [place], [address] CBC W/Diff, Automatedon 02-2 0-2024 Absolute Lymph 1.78 X10 3/uL Normal 0.83-4.51 [facility] Comment on above: Performed By: #### L 500.2500, L100.0100 ####[facility] [address] [place], [address] Absolute Neut 3.3 X10 3/uL Normal 2.0-7.7 [facility] Comment on above: Performed By: #### L 500.2500, L100.0100 ####[facility] [address] [place], [address] Basophils/100 WBC (Bld) 1.3 % High 0-1 [facility] Comment on above: Performed By: #### L 500.2500, L100.0100 ####[facility] [address] [place], [address] Eosinophils/100 WBC (Bld) 5.6 % High 0-5 [facility] Comment on above: Performed By: #### L 500.2500, L100.0100 ####[facility] [address] [place], [address] Erythrocyte distribution width (RBC) [Ratio] 14.4 % Normal 11.6-14.6 [facility] Comment on above: Performed By: #### L 500.2500, L100.0100 ####[facility] [address] [place], [address] Hematocrit (Bld) [Volume fraction] 33.4 % Low 37-47 [facility] Comment on above: Performed By: #### L 500.2500, L100.0100 ####[facility] [address] [place], [address] Hemoglobin (Bld) [Mass/Vol] 10.5 g/dL Low 12.0-15.0 [facility] Comment on above: Performed By: #### L 500.2500, L100.0100 ####[facility] [address] [place], [address] IG% 0.800 Normal 0.0-0.9 [facility] Comment on above: Result Comment: IG% - Immature Granulocytes (promyelocytes, myelocytes andmetamyelocytes) > 1% indicates that a LEFT SHIFT is Present. Performed By: #### L 500.2500, L100.0100 ####[facility] [address] [place], [address] Lymphocytes/100 WBC (Bld) 29.2 % Normal 19-41 [facility] Comment on above: Performed By: #### L 500.2500, L100.0100 ####[facility] [address] [place], [address] MCH (RBC) [Entitic mass] 29.6 pg Normal 27.0-32.0 [facility] Comment on above: Performed By: #### L 500.2500, L100.0100 ####[facility] [address] [place], [address] MCHC (RBC) [Mass/Vol] 31.4 g/dL Low 32-36 [facility] Comment on above: Performed By: #### L 500.2500, L100.0100 ####[facility] [address] [place], [address] MCV (RBC) [Entitic vol] 94.1 fL Normal 81-99 [facility] Comment on above: Performed By: #### L 500.2500, L100.0100 ####[facility] [address] [place], [address] Monocytes/100 WBC (Bld) 8.4 % Normal 0-10 [facility] Comment on above: Performed By: #### L 500.2500, L100.0100 ####[facility] [address] [place], [address] Neutrophils/100 WBC (Bld) 54.7 % Normal 47-70 [facility] Comment on above: Performed By: #### L 500.2500, L100.0100 ####[facility] [address] [place], [address] Nucleated RBC (Bld) [#/Vol] 0 10*3/uL Normal 0-5 [facility] Comment on above: Performed By: #### L 500.2500, L100.0100 ####[facility] [address] [place], [address] Platelet mean volume (Bld) [Entitic vol] 9.5 fL Normal 6.2-12.0 [facility] Comment on above: Performed By: #### L 500.2500, L100.0100 ####[facility] [address] [place], [address] Platelets (Bld) [#/Vol] 357 10*3/uL Normal 150-450 [facility] Comment on above: Performed By: #### L 500.2500, L100.0100 ####[facility] [address] [place], [address] RBC (Bld) [#/Vol] 3.55 10*6/uL Low 4.2-5.4 [facility] Comment on above: Performed By: #### L 500.2500, L100.0100 ####[facility] [address] [place], [address] RDW SD 50.5 fl High 35.1-43.9 [facility] Comment on above: Performed By: #### L 500.2500, L100.0100 ####[facility] [address] [place], [address] WBC (Bld) [#/Vol] 6.1 10*3/uL Normal 4.4-11.0 [facility] Comment on above: Performed By: #### L 500.2500, L100.0100 ####[facility] [address] [place], [address] Basic metabolic 2000 panelon 06-30-2024 Anion gap [Moles/Vol] 9 mmol/L Normal 8-15 [facility] Comment on above: Order Comment: Speci men Type: BLOOD SPECIMENOrdering Facility: [facility] Address: [address] [place] [address] Performed By: #### 2 4321-2 ####[facility]ORYCLIA [id number] [place] [address] [place] Calcium [Mass/Vol] 8.7 mg/dL Normal 8.5-10.2 [facility] Comment on above: Order Comment: Speci men Type: BLOOD SPECIMENOrdering Facility: [facility] Address: [address] [place] [address] Performed By: #### 2 4321-2 ####[facility]ATORYCLIA [id number] [address] [place] Chloride [Moles/Vol] 98 mmol/L Normal 98-107 [facility] Comment on above: Order Comment: Speci men Type: BLOOD SPECIMENOrdering Facility: [facility] Address: [address] [place] [address] Performed By: #### 2 4321-2 ####[facility] LABORATORYCLIA [id number] [place] [address] [place] CO2 [Moles/Vol] 29 mmol/L Normal 22-30 [facility] Comment on above: Order Comment: Speci men Type: BLOOD SPECIMENOrdering Facility: [facility] Address: [address] [place] [address] Performed By: #### 2 4321-2 ####[facility]ORYCLIA [id number] [address] [place] Creatinine [Mass/Vol] 0.77 mg/dL Normal 0.58-0.96 [facility] Comment on above: Order Comment: Speci men Type: BLOOD SPECIMENOrdering Facility: [facility] Address: [address] [place] [address] Performed By: #### 2 4321-2 ####[facility]ATORYCLIA [id number] [address] [place] Creatinine and Glomerular filtration rate.predicted panel (S/P/Bld) 74 mL/min/1.73m??? Normal >=60 [facility] Comment on above: Order Comment: Christopher hurd Type: BLOOD SPECIMENOrdering Facility: [facility] Address: [address] [place] [address] Result Comment: Michael mated Glomerular Filtration Rate [...] actual GFR. Performed By: #### 2 4321-2 ####[facility]ATORYCLIA [id number] [place] [address] [place] Glucose [Mass/Vol] 97 mg/dL Normal 74-99 [facility] Comment on above: Order Comment: Christopher hurd Type: BLOOD SPECIMENOrdering Facility: [facility] Address: [address] [place] [address] Result Comment: The [place] [employer] (ADA) provides guidance for cutoff [...] Standards of Medical Care in Diabetes 2016, [place] [employer]. Diabetes Care. 2016.39(Suppl 1). Performed By: #### 2 4321-2 ####[facility]ATORYCLIA [id number] [place] [address] [place] Potassium [Moles/Vol] 4.4 mmol/L Normal 3.7-5.1 [facility] Comment on above: Order Comment: Christopher hurd Type: BLOOD SPECIMENOrdering Facility: [facility] Address: [address] [place] [address] Performed By: #### 2 4321-2 ####[facility]ATORYCLIA [id number] [address] Sodium [Moles/Vol] 136 mmol/L Normal 136-144 [facility] Comment on above: Order Comment: Speci men Type: BLOOD SPECIMENOrdering Facility: [facility] Address: [address] [place] [address] Performed By: #### 2 4321-2 ####[facility] [facility]ORYCLIA [id number] [address] STATES [facility] Urea nitrogen [Mass/Vol] 19 mg/dL Normal 7-21 [facility] Comment on above: Order Comment: Speci men Type: BLOOD SPECIMENOrdering Facility: [facility] Address: [address] [place] [address] Performed By: #### 2 4321-2 ####[facility]ATORYCLIA [id number] [address] CBC panel Auto (Bld)on 06-30 Erythrocyte distribution width (RBC) [Ratio] 14.6 % Normal 11.5-15.0 [facility] Comment on above: Order Comment: Speci men Type: BLOOD SPECIMENOrdering Facility: [facility] Address: [address] [place] [address] Performed By: #### 5 8410-2 ####[facility]ORYCLIA [id number] [address] Hematocrit (Bld) [Volume fraction] 31.1 % Low 36.0-46.0 [facility] Comment on above: Order Comment: Speci men Type: BLOOD SPECIMENOrdering Facility: [facility] Address: [address] [place] [address] Performed By: #### 5 8410-2 ####[facility]ATORYCLIA [id number] [address] OF [facility] Hemoglobin (Bld) [Mass/Vol] 10.0 g/dL Low 11.5-15.5 [facility] Comment on above: Order Comment: Speci men Type: BLOOD SPECIMENOrdering Facility: [facility] Address: [address] [place] [address] Performed By: #### 5 8410-2 ####[facility]ATORYCLIA [id number] [address] MCH (RBC) [Entitic mass] 30.5 pg Normal 26.0-34.0 [facility] Comment on above: Order Comment: Speci men Type: BLOOD SPECIMENOrdering Facility: [facility] Address: [address] [place] [address] Performed By: #### 5 8410-2 ####[facility]ATORYCLIA [id number] [address] MCHC (RBC) [Mass/Vol] 32.2 g/dL Normal 30.5-36.0 [facility] Comment on above: Order Comment: Speci men Type: BLOOD SPECIMENOrdering Facility: [facility] Address: [address] [place] [address] Performed By: #### 5 8410-2 ####[facility]ATORYCLIA [id number] [address] MCV (RBC) [Entitic vol] 94.8 fL Normal 80.0-100.0 [facility] Comment on above: Order Comment: Speci men Type: BLOOD SPECIMENOrdering Facility: [facility] Address: [address] [place] [address] Performed By: #### 5 8410-2 ####[facility]ATORYCLIA [id number] [address] Nucleated RBC (Bld) [#/Vol] 10*3/uL Normal <0.01 [facility] Comment on above: Order Comment: Speci men Type: BLOOD SPECIMENOrdering Facility: [facility] Address: [address] [place] [address] Performed By: #### 5 8410-2 ####[facility]ATORYCLIA [id number] [address] STATES [facility] Platelet mean volume (Bld) [Entitic vol] 9.5 fL Normal 9.0-12.7 [facility] Comment on above: Order Comment: Speci men Type: BLOOD SPECIMENOrdering Facility: [facility] Address: [address] [place] [address] Performed By: #### 5 8410-2 ####[facility]ATORYCLIA [id number] [address] [place] Platelets (Bld) [#/Vol] 265 10*3/uL Normal 150-400 [facility] Comment on above: Order Comment: Speci men Type: BLOOD SPECIMENOrdering Facility: [facility] Address: [address] [place] [address] Performed By: #### 5 8410-2 ####[facility] [id number] [address] STATES [facility] RBC (Bld) [#/Vol] 3.28 10*6/uL Low 3.90-5.20 [facility] Comment on above: Order Comment: Speci men Type: BLOOD SPECIMENOrdering Facility: [facility] Address: [address] [place] [address] Performed By: #### 5 8410-2 ####[facility]ATORYCLIA [id number] [address] OF [place] WBC (Bld) [#/Vol] 5.07 10*3/uL Normal 3.70-11.00 [facility] Comment on above: Order Comment: Speci men Type: BLOOD SPECIMENOrdering Facility: [facility] Address: [address] [place] [address] Performed By: #### 5 8410-2 ####[facility]ATORYCLIA [id number] [address] CNDSon 06-30-2024 CNDS HNO ID: [id number] Author: WALLY ZIEGLER MD Service: General Surgery Author Type: Nurse Practitioner Type: Discharge Summary Filed: 07/06/2024 15:47 Note Text: Attestation signed by Wally Ziegler MD at 07/06/2024 3:47 PM Attending Note The patient is appropriate for discharge on 06/30/2024 The [facility], acting on behalf of the attending physician, has completed the [id number]-[id number] portion of the patient discharge encounter. Wally [...] an 89-year old female who presented to [facility] on 06/26/24 following a fall. Patient [...] the above findings, patient was transferred to [facility] for further trauma evaluation. Patient's rib [...] (more content not included)... Normal [facility] THERAPY NTon 06-30-2024 THERAPY NT HNO ID: [id number] Author: RAUDEL SAPP, PT Service: Physical Therapy Author Type: Physical Therapist Type: Therapy (PT/OT/Speech/Resp) Filed: 06/30/2024 16:09 Note Text: Physical Therapy Treatment Summary SERVICE DATE: 06/30/2024 SERVICE TIME: 1522 to 1545 ROOM: [id number]- PT 6 Clicks Score: 17 DISCHARGE RECOMMENDATIONS [...] female admitted for fall, [place], found to have R [...] prior to last fall and admission to [place] was independent with mobility, using rollator, [place] from [place], living home alone with assist from family and friends for IADLs as needed, was about to start Home PT, OT, ST SUBJECTIVE Patient pleasant and agreeable to PT session THERAPY DIAGNOSIS Reduced mobility-other, Muscle Weakness (generalized), Unsteadiness on feet, General symptoms and signs-other TREATMENT INTERVENTIONS Therapeutic Exercise (08544), Therapeutic Activity (81020), Gait Training (79457) Therapeutic Exercise (65652) Treatment Minutes: 10 $ Therapeutic Exercise (77245) Billed Units: 1 unit Exercise Ankle Pumps (number of reps): 10 Quad Sets (number of reps): 10 Glut Sets (number of reps): 10 LAQ (number of reps): 10 BLE Hip Abduction (number of reps): 10 BLE Exercise: hip adduction squeezes x10, seated hip flexion x10 BLE Therapeutic Activity (49824) Treatment Minutes: 4 $ Therapeutic Activity (92314) Billed Units: 0 units Cues/assist with transfers, further education on spine precautions and assist to don/doff LSO brace for ambulation. Feet elevated in recliner at end of session with call light on lap. Gait Training (47692) Treatment Minutes: 9 $ Gait Training (69548) Billed Units: 1 unit Cues/assist with ambulation [...] (more content not included)... Normal [facility] THERAPY NT HNO ID: [id number] Author: JOSE ANGEL BELTRAN CCC-HYDROGEN PLANT OPERATOR Service: Speech/Swallow Author Type: Speech Language Pathologist Type: Therapy (PT/OT/Speech/Resp) Filed: 06/30/2024 10:38 Note Text: Speech Therapy Clinical Swallow Evaluation SERVICE DATE: 06/30/2024 SERVICE TIME: 0955 to 1010 ROOM: [place] [address] IMPRESSION Functional oropharyngeal phases of swallowing: without [...] Need TREATMENT INTERVENTIONS $ Clinical Swallow Evaluation (61245) Billed Units: 1 unit Clinical Swallow Evaluation (73400) Skilled Treatment Time (minutes): 15 TRAINING AND [...] Bite/Sip -Patient alert, up in chair on HYDROGEN PLANT OPERATOR arrival, agreeable to evaluation -Able to feed [...] Developed with: Patient SIGNATURE: Jose Angel Beltran CCC-HYDROGEN PLANT OPERATOR PATIENT NAME: Joyce Solomon DATE: June 30, 2024 TIME: 10:36 AM Normal [facility] Basic metabolic 2000 panelon 06-29-2024 Anion gap [Moles/Vol] 10 mmol/L Normal 8-15 [facility] Comment on above: Order Comment: Speci men Type: BLOOD SPECIMENOrdering Facility: [facility] Address: [address] [place] [address] Performed By: #### 1 91239, ####[facility]ATORYCLIA [id number] [place] [address] [place] Calcium [Mass/Vol] 8.7 mg/dL Normal 8.5-10.2 [facility] Comment on above: Order Comment: Speci men Type: BLOOD SPECIMENOrdering Facility: [facility] Address: [address] [place] [address] Performed By: #### 1 9123-9, 97002-4 ####[facility]ATORYCLIA [id number] [place] [address] [place] Chloride [Moles/Vol] 97 mmol/L Low 98-107 [facility] Comment on above: Order Comment: Speci men Type: BLOOD SPECIMENOrdering Facility: [facility] Address: [address] [place] [address] Performed By: #### 1 9123-9, ####[facility]ATORYCLIA [id number] [address] STATES OF [facility] CO2 [Moles/Vol] 28 mmol/L Normal 22-30 [facility] Comment on above: Order Comment: Speci men Type: BLOOD SPECIMENOrdering Facility: [facility] Address: [address] [place] [address] Performed By: #### 1 9123-9, ####[facility]ATORYCLIA [id number] [address] [place] Creatinine [Mass/Vol] 0.78 mg/dL Normal 0.58-0.96 [facility] Comment on above: Order Comment: Speci men Type: BLOOD SPECIMENOrdering Facility: [facility] Address: [address] [place] [address] Performed By: #### 1 9123-9, ####[facility]ATORYCLIA [id number] [address] [place] Creatinine and Glomerular filtration rate.predicted panel (S/P/Bld) 73 mL/min/1.73m??? Normal >=60 [facility] Comment on above: Order Comment: Christopher hurd Type: BLOOD SPECIMENOrdering Facility: [facility] Address: [address] [place] [address] Result Comment: Michael mated Glomerular Filtration Rate [...] actual GFR. Performed By: #### 1 9123-9, 48597-1 ####[facility]ATORYCLIA [id number] [place] [address] [place] Glucose [Mass/Vol] 99 mg/dL Normal 74-99 [facility] Comment on above: Order Comment: Christopher hurd Type: BLOOD SPECIMENOrdering Facility: [facility] Address: [address] [place] [address] Result Comment: The [place] [employer] (ADA) provides guidance for cutoff [...] Standards of Medical Care in Diabetes 2016, [place] [employer]. Diabetes Care. 2016.39(Suppl 1). Performed By: #### 1 9123-9, 39574-5 ####[facility]ATORYCLIA [id number] [place] [address] [place] Potassium [Moles/Vol] 4.0 mmol/L Normal 3.7-5.1 [facility] Comment on above: Order Comment: Christopher hurd Type: BLOOD SPECIMENOrdering Facility: [facility] Address: [address] [place] [address] Performed By: #### 1 9123-9, 82252-4 ####[facility]ATORYCLIA [id number] [address] STATES [facility] Sodium [Moles/Vol] 135 mmol/L Low 136-144 [facility] Comment on above: Order Comment: Speci men Type: BLOOD SPECIMENOrdering Facility: [facility] Address: [address] [place] [address] Performed By: #### 1 9123-9, 90548-0 ####[facility]ATORYCLIA [id number] [address] STATES [facility] Urea nitrogen [Mass/Vol] 17 mg/dL Normal 7-21 [facility] Comment on above: Order Comment: Speci men Type: BLOOD SPECIMENOrdering Facility: [facility] Address: [address] [place] [address] Performed By: #### 1 9123-9, 17631-8 ####[facility]ATORYCLIA [id number] [address] CBC panel Auto (Bld)on 06-29 Erythrocyte distribution width (RBC) [Ratio] 14.6 % Normal 11.5-15.0 [facility] Comment on above: Order Comment: Speci men Type: BLOOD SPECIMENOrdering Facility: [facility] Address: [address] [place] [address] Performed By: #### 5 8410-2 ####[facility]ATORYCLIA [id number] [address] STATES [facility] Hematocrit (Bld) [Volume fraction] 29.4 % Low 36.0-46.0 [facility] Comment on above: Order Comment: Speci men Type: BLOOD SPECIMENOrdering Facility: [facility] Address: [address] [place] [address] Performed By: #### 5 8410-2 ####[facility]ATORYCLIA [id number] [address] Hemoglobin (Bld) [Mass/Vol] 9.5 g/dL Low 11.5-15.5 [facility] Comment on above: Order Comment: Speci men Type: BLOOD SPECIMENOrdering Facility: [facility] Address: [address] [place] [address] Performed By: #### 5 8410-2 ####[facility]ATORYCLIA [id number] [address] MCH (RBC) [Entitic mass] 30.4 pg Normal 26.0-34.0 [facility] Comment on above: Order Comment: Speci men Type: BLOOD SPECIMENOrdering Facility: [facility] Address: [address] [place] [address] Performed By: #### 5 8410-2 ####[facility]ATORYCLIA [id number] [address] MCHC (RBC) [Mass/Vol] 32.3 g/dL Normal 30.5-36.0 [facility] Comment on above: Order Comment: Speci men Type: BLOOD SPECIMENOrdering Facility: [facility] Address: [address] [place] [address] Performed By: #### 5 8410-2 ####[facility]ATORYCLIA [id number] [address] MCV (RBC) [Entitic vol] 93.9 fL Normal 80.0-100.0 [facility] Comment on above: Order Comment: Speci men Type: BLOOD SPECIMENOrdering Facility: [facility] Address: [address] [place] [address] Performed By: #### 5 8410-2 ####[facility]ATORYCLIA [id number] [address] Nucleated RBC (Bld) [#/Vol] 10*3/uL Normal <0.01 [facility] Comment on above: Order Comment: Speci men Type: BLOOD SPECIMENOrdering Facility: [facility] Address: [address] [place] [address] Performed By: #### 5 8410-2 ####[facility]ATORYCLIA [id number] [place], [place] [address] [place] [address] [place] Platelet mean volume (Bld) [Entitic vol] 9.4 fL Normal 9.0-12.7 [facility] Comment on above: Order Comment: Speci men Type: BLOOD SPECIMENOrdering Facility: [facility] Address: [address] [place] [address] Performed By: #### 5 8410-2 ####[facility]ATORYCLIA [id number] [place] [address] [place] Platelets (Bld) [#/Vol] 262 10*3/uL Normal 150-400 [facility] Comment on above: Order Comment: Speci men Type: BLOOD SPECIMENOrdering Facility: [facility] Address: [address] [place] [address] Performed By: #### 5 8410-2 ####[facility]ATORYCLIA [id number] [place] [address] [place] RBC (Bld) [#/Vol] 3.13 10*6/uL Low 3.90-5.20 [facility] Comment on above: Order Comment: Speci men Type: BLOOD SPECIMENOrdering Facility: [facility] Address: [address] [place] [address] Performed By: #### 5 8410-2 ####[facility]ATORYCLIA [id number] [address] [place] WBC (Bld) [#/Vol] 7.38 10*3/uL Normal 3.70-11.00 [facility] Comment on above: Order Comment: Speci men Type: BLOOD SPECIMENOrdering Facility: [facility] Address: [address] [place] [address] Performed By: #### 5 8410-2 ####[facility]ATORYCLIA [id number] [address] [place] Magnesium SerPl-mCncon 06-29 Magnesium [Mass/Vol] 2.2 mg/dL Normal 1.7-2.3 [facility] Comment on above: Order Comment: Speci men Type: BLOOD SPECIMENOrdering Facility: [facility] Address: [facility] [place] [address] Performed By: #### 1 9123-9, 42304-0 ####[facility]ATORYCLIA [id number] [place] [address] [place] NUTRITIONon 06-29-2024 NUTRITION HNO ID: [id number] Author: ROSEMARY GÓMEZ RD Service: Nutrition Therapy [...] involving digestive system(787.99) PAF (paroxysmal atrial fibrillation) ([facility]) 10/20/2013 Thyroid disorder Intake History: [...] protein determined by: 1.2 - 1.5 g/kg, [place] body weight Diet Orders (From admission, onward) Start Ordered 06/29/24 3235 DIET SUPPLEMENTS START NOW Question Answer Comment [...] 2024 TIME: 3:04 PM Normal [facility] THERAPY NTon 06-29-2024 THERAPY NT HNO ID: [id number] Author: SAMIA HENRY OTR/L Service: Occupational Therapy Author Type: Occupational Therapist Type: Therapy (PT/OT/Speech/Resp) Filed: 06/29/2024 14:06 Note Text: Occupational Therapy Evaluation Summary SERVICE DATE: 06/29/2024 SERVICE TIME: 1330 to 1356 ROOM: [place] [address] OT 6 Clicks Score: 14 DISCHARGE RECOMMENDATIONS [...] female admitted for fall, [place], found to have R [...] prior to last fall and admission to [place] was independent with mobility, using rollator, recently [place], living home alone with assist from family and friends for IADLs as needed, was about to start Home PT, OT, ST Baseline Cognition: Oriented to self, Oriented to place, Oriented to time SUBJECTIVE awake, agreeable to OT session COGNITION Responsiveness: Alert, Awake Follows Commands: 3-step Commands THERAPY DIAGNOSIS Reduced mobility-other, Decreased activities of daily living (ADL), Muscle Weakness (generalized) TREATMENT INTERVENTIONS Evaluation, Self Long Term Management (89024) Timed Code Treatment (minutes): 10 Skilled Treatment Time (minutes): 26 $ Evaluation - Moderate (76665) Billed Units: 1 unit Self Long Term Management (75715) Treatment Minutes: 10 $ Self Long Term Management (62408) Billed Units: 1 unit TRAINING AND EDUCATION [...] (more content not included)... Normal [facility] THERAPY NT HNO ID: [id number] Author: RAUDEL SAPP, PT Service: Physical Therapy Author Type: Physical Therapist Type: Therapy (PT/OT/Speech/Resp) Filed: 06/29/2024 11:06 Note Text: Physical Therapy Evaluation Summary SERVICE DATE: 06/29/2024 SERVICE TIME: 941 to 1010 ROOM: [id number]- PT 6 Clicks Score: 16 DISCHARGE RECOMMENDATIONS [...] female admitted for fall, [place], found to have R [...] prior to last fall and [place] was independent with mobility, using rollator, recently [place], living home alone with assist from family and friends for IADLs as needed, was about to start Home PT SUBJECTIVE Patient pleasant and agreeable to PT session THERAPY DIAGNOSIS Reduced mobility-other, Muscle Weakness (generalized), Unsteadiness on feet, General symptoms and signs-other TREATMENT INTERVENTIONS Evaluation, Therapeutic Activity (97072) $ Evaluation-Moderate (93298) Billed Units: 1 unit Therapeutic Activity (04641) Treatment Minutes: 13 $ Therapeutic Activity (19483) Billed Units: 1 unit Cues/assist with mobility [...] (more content not included)... Normal [facility] ALLIED HEALTHon 06-28-2024 ALLIED HEALTH HNO ID: [id number] Author: SADIA RINCNO RT(R) Service: Radiology Author Type: Technologist Type: [...] PATIENT PRESENTS WITH AN IMPLANTABLE OR ATTACHED CLOTHES SEPARATOR: No RADIOLOGY DEPARTMENT: MR; Exam(s) Completed: Spine: Lumbar spine PERIPHERAL IV DATA: Not applicable SIGNED BY: Sadia Rincon RT(R) June 28, 2024 7:56 AM Normal [facility] Basic Metabolic Profile (BMP )on 06-28-2024 BUN Normal 7-18 [facility] Comment on above: Result Comment: Canc elled via OM: Order cancelled - Patient discharged Performed By: #### L 500.2500, L100.0100 ####[facility] [address] [place], [address] BUN/CRE Normal 10-20 [facility] Comment on above: Result Comment: Canc elled via OM: Order cancelled - Patient discharged Performed By: #### L 500.2500, L100.0100 ####[facility] [address] [place], [address] CA,Total Normal 8.5-10.1 [facility] Comment on above: Result Comment: Canc elled via OM: Order cancelled - Patient discharged Performed By: #### L 500.2500, L100.0100 ####[facility] [address] [place], [address] CL Normal 98-107 [facility] Comment on above: Result Comment: Canc elled via OM: Order cancelled - Patient discharged Performed By: #### L 500.2500, L100.0100 ####[facility] [address] [place], [address] CO2 Normal 21.0-32.0 [facility] Comment on above: Result Comment: Canc elled via OM: Order cancelled - Patient discharged Performed By: #### L 500.2500, L100.0100 ####[facility] [address] [place], [address] CREAT,SERUM Normal 0.55-1.02 [facility] Comment on above: Result Comment: Canc elled via OM: Order cancelled - Patient discharged Performed By: #### L 500.2500, L100.0100 ####[facility] [address] [place], [address] EST GFR Normal >60 [facility] Comment on above: Result Comment: Canc elled via OM: Order cancelled - Patient discharged Performed By: #### L 500.2500, L100.0100 ####[facility] [address] [place], [address] EST GFR - AA Normal >60 [facility] Comment on above: Result Comment: Canc elled via OM: Order cancelled - Patient discharged Performed By: #### L 500.2500, L100.0100 ####[facility] [address] [place], [address] GAP Normal 5-15 [facility] Comment on above: Result Comment: Canc elled via OM: Order cancelled - Patient discharged Performed By: #### L 500.2500, L100.0100 ####[facility] [address] [place], [address] GLU Normal 74-106 [facility] Comment on above: Result Comment: Canc elled via OM: Order cancelled - Patient discharged Performed By: #### L 500.2500, L100.0100 ####[facility] [address] [place], [address] Potassium Normal 3.5-5.1 [facility] Comment on above: Result Comment: Canc elled via OM: Order cancelled - Patient discharged Performed By: #### L 500.2500, L100.0100 ####[facility] [address] [place], [address] Basic Metabolic Profile (BMP) Normal 136-145 [facility] Comment on above: Result Comment: Canc elled via OM: Order cancelled - Patient discharged Performed By: #### L 500.2500, L100.0100 ####[facility] [address] [place], [address] Basic metabolic 2000 panelon 06-28-2024 Anion gap [Moles/Vol] 10 mmol/L Normal 8-15 [facility] Comment on above: Order Comment: Speci men Type: BLOOD SPECIMENOrdering Facility: [facility] Address: [address] [place] [address] Performed By: #### 2 4321-2, , 2776-05 ####[facility] LABORATORYCLIA [id number] [place] [address] [place] Calcium [Mass/Vol] 8.6 mg/dL Normal 8.5-10.2 [facility] Comment on above: Order Comment: Speci men Type: BLOOD SPECIMENOrdering Facility: [facility] Address: [address] [place] [address] Performed By: #### 2 4321-2, , 2776-05 ####[facility] LABORATORYCLIA [id number] [place] [address] [place] Chloride [Moles/Vol] 96 mmol/L Low 98-107 [facility] Comment on above: Order Comment: Speci men Type: BLOOD SPECIMENOrdering Facility: [facility] Address: [address] [place] [address] Performed By: #### 2 4321-2, , 2776-05 ####[facility] LABORATORYCLIA [id number] [place] [address] [place] CO2 [Moles/Vol] 31 mmol/L High 22-30 [facility] Comment on above: Order Comment: Speci men Type: BLOOD SPECIMENOrdering Facility: [facility] Address: [address] [place] [address] Performed By: #### 2 4321-2, , 2776-05 ####[facility]ITALCLIA [id number] [place] [address] [place] [facility] Creatinine [Mass/Vol] 0.75 mg/dL Normal 0.58-0.96 [facility] Comment on above: Order Comment: Speci men Type: BLOOD SPECIMENOrdering Facility: [facility] Address: [address] [place] [address] Performed By: #### 2 4321-2, , 2776-05 ####[facility] HOSPITALIA [id number] [place] [id number] [facility] Creatinine and Glomerular filtration rate.predicted panel (S/P/Bld) 77 mL/min/1.73m??? Normal >=60 [facility] Comment on above: Order Comment: Christopher hurd Type: BLOOD SPECIMENOrdering Facility: [facility] Address: [address] [place] [address] Result Comment: Michael mated Glomerular Filtration Rate [...] Performed By: #### 2 4321-2, , 2776-05 ####[facility] LABORATORYCLIA [id number] [place] [id number] [place] Glucose [Mass/Vol] 88 mg/dL Normal 74-99 [facility] Comment on above: Order Comment: Jeanettei men Type: BLOOD SPECIMENOrdering Facility: [facility] Address: [address] [place] [address] Result Comment: The [place] [employer] (ADA) provides guidance for cutoff [...] Standards of Medical Care in Diabetes 2016, [place] [employer]. Diabetes Care. 2016.39(Suppl 1). Performed By: #### 2 4321-2, , 2776-05 ####[facility]ATORYCLIA [id number] [place] [address] [place] Potassium [Moles/Vol] 3.7 mmol/L Normal 3.7-5.1 [facility] Comment on above: Order Comment: Christopher hurd Type: BLOOD SPECIMENOrdering Facility: [facility] Address: [address] [place] [address] Performed By: #### 2 432-2, , 2776-05 ####[facility]ORATORYCLIA [id number] [place] [address] [place] Sodium [Moles/Vol] 137 mmol/L Normal 136-144 [facility] Comment on above: Order Comment: Christopher hurd Type: BLOOD SPECIMENOrdering Facility: [facility] Address: [address] [place] [address] Performed By: #### 2 432-2, , 2776-05 ####[facility]ORATORYCLIA [id number] [place] [address] [place] Urea nitrogen [Mass/Vol] 15 mg/dL Normal 7-21 [facility] Comment on above: Order Comment: Christopher hurd Type: BLOOD SPECIMENOrdering Facility: [facility] Address: [address] [place] [address] Performed By: #### 2 4321-2, , 2776-05 ####[facility]ATORYCLIA [id number] [place] [address] [place] CBC W/Diff, Automatedon 02-1 7-2025 Absolute Neut Normal 2.0-7.7 [facility] Comment on above: Result Comment: Canc elled via OM: Order cancelled - Patient discharged Performed By: #### L 500.2500, L100.0100 ####[facility] [address] [place], [address] HCT Normal 37-47 [facility] Comment on above: Result Comment: Canc elled via OM: Order cancelled - Patient discharged Performed By: #### L 500.2500, L100.0100 ####[facility] [address] [place], [address] HGB Normal 12.0-15.0 [facility] Comment on above: Result Comment: Canc elled via OM: Order cancelled - Patient discharged Performed By: #### L 500.2500, L100.0100 ####[facility] [address] [place], [address] MCH Normal 27.0-32.0 [facility] Comment on above: Result Comment: Canc elled via OM: Order cancelled - Patient discharged Performed By: #### L 500.2500, L100.0100 ####[facility] [address] [place], [address] MCHC Normal 32-36 [facility] Comment on above: Result Comment: Canc elled via OM: Order cancelled - Patient discharged Performed By: #### L 500.2500, L100.0100 ####[facility] [address] [place], [address] MCV Normal 81-99 [facility] Comment on above: Result Comment: Canc elled via OM: Order cancelled - Patient discharged Performed By: #### L 500.2500, L100.0100 ####[facility] [address] [place], [address] NEUT% Normal 47-70 [facility] Comment on above: Result Comment: Canc elled via OM: Order cancelled - Patient discharged Performed By: #### L 500.2500, L100.0100 ####[facility] [address] [place], [address] PLT Normal 150-450 [facility] Comment on above: Result Comment: Canc elled via OM: Order cancelled - Patient discharged Performed By: #### L 500.2500, L100.0100 ####[facility] [address] [place], [address] RBC Normal 4.2-5.4 [facility] Comment on above: Result Comment: Canc elled via OM: Order cancelled - Patient discharged Performed By: #### L 500.2500, L100.0100 ####[facility] [address] [place], [address] RDW CV Normal 11.6-14.6 [facility] Comment on above: Result Comment: Canc elled via OM: Order cancelled - Patient discharged Performed By: #### L 500.2500, L100.0100 ####[facility] [address] [place], [address] RDW SD Normal 35.1-43.9 [facility] Comment on above: Result Comment: Canc elled via OM: Order cancelled - Patient discharged Performed By: #### L 500.2500, L100.0100 ####[facility] [address] [place], [address] WBC Normal 4.4-11.0 [facility] Comment on above: Result Comment: Canc elled via OM: Order cancelled - Patient discharged Performed By: #### L 500.2500, L100.0100 ####[facility] [address] [place], [address] CBC panel Auto (Bld)on 06-28 Erythrocyte distribution width (RBC) [Ratio] 14.7 % Normal 11.5-15.0 [facility] Comment on above: Order Comment: Speci men Type: BLOOD SPECIMENOrdering Facility: [facility] Address: [address] [place] [address] Performed By: #### 5 8410-2 ####[facility] LABORATORYCLIA [id number] [address] OF [facility] Hematocrit (Bld) [Volume fraction] 28.8 % Low 36.0-46.0 [facility] Comment on above: Order Comment: Speci men Type: BLOOD SPECIMENOrdering Facility: [facility] Address: [address] [place] [address] Performed By: #### 5 8410-2 ####[facility] LABORATORYCLIA [id number] [address] OF [place] Hemoglobin (Bld) [Mass/Vol] 9.3 g/dL Low 11.5-15.5 [facility] Comment on above: Order Comment: Speci men Type: BLOOD SPECIMENOrdering Facility: [facility] Address: [address] [place] [address] Performed By: #### 5 8410-2 ####[facility] LABORATORYCLIA [id number] [address] STATES OF [facility] MCH (RBC) [Entitic mass] 30.4 pg Normal 26.0-34.0 [facility] Comment on above: Order Comment: Speci men Type: BLOOD SPECIMENOrdering Facility: [facility] Address: [address] [place] [address] Performed By: #### 5 8410-2 ####[facility]ORATORYCLIA [id number] [address] STATES OF [place] MCHC (RBC) [Mass/Vol] 32.3 g/dL Normal 30.5-36.0 [facility] Comment on above: Order Comment: Speci men Type: BLOOD SPECIMENOrdering Facility: [facility] Address: [address] [place] [address] Performed By: #### 5 8410-2 ####[facility]ORATORYCLIA [id number] [address] OF [place] MCV (RBC) [Entitic vol] 94.1 fL Normal 80.0-100.0 [facility] Comment on above: Order Comment: Speci men Type: BLOOD SPECIMENOrdering Facility: [facility] Address: [address] [place] [address] Performed By: #### 5 8410-2 ####[facility] LABORATORYCLIA [id number] [address] OF [place] Nucleated RBC (Bld) [#/Vol] 10*3/uL Normal <0.01 [facility] Comment on above: Order Comment: Speci men Type: BLOOD SPECIMENOrdering Facility: [facility] Address: [address] [place] [address] Performed By: #### 5 8410-2 ####[facility]ORATORYCLIA [id number] [address] Platelet mean volume (Bld) [Entitic vol] 9.2 fL Normal 9.0-12.7 [facility] Comment on above: Order Comment: Speci men Type: BLOOD SPECIMENOrdering Facility: [facility] Address: [address] [place] [address] Performed By: #### 5 8410-2 ####[facility]ORATORYCLIA [id number] [address] OF [facility] Platelets (Bld) [#/Vol] 262 10*3/uL Normal 150-400 [facility] Comment on above: Order Comment: Speci men Type: BLOOD SPECIMENOrdering Facility: [facility] Address: [address] [place] [address] Performed By: #### 5 8410-2 ####[facility]ORATORYCLIA [id number] [address] OF [place] RBC (Bld) [#/Vol] 3.06 10*6/uL Low 3.90-5.20 [facility] Comment on above: Order Comment: Speci men Type: BLOOD SPECIMENOrdering Facility: [facility] Address: [address] [place] [address] Performed By: #### 5 8410-2 ####[facility]ORATORYCLIA [id number] [place] [address] [place] WBC (Bld) [#/Vol] 6.94 10*3/uL Normal 3.70-11.00 [facility] Comment on above: Order Comment: Speci men Type: BLOOD SPECIMENOrdering Facility: [facility] Address: [address] [place] [address] Performed By: #### 5 8410-2 ####[facility]ORATORYCLIA [id number] [place] [address] [facility] CONSULTon 06-28-2024 CONSULT HNO ID: [id number] Author: LELAND REILLY PA Service: Geriatrics Author Type: Physician Lithographic Printing Machinist Type: Consults Filed: 06/28/2024 11:10 Note Text: GERIATRIC MEDICINE CONSULT NOTE SERVICE DATE: 06/28/2024 SERVICE TIME: 9:00 AM [id number]-* REASON FOR CONSULT: 89-year old female with frequent falls with associated injuries REQUESTING PROVIDER: Peewee Latif CNP HISTORY OF PRESENT ILLNESS: Joyce Solomon is a 89 year old female with a past medical history of HTN, atrial fibrillation, NEL, and depression who was admitted on 06/26 for closed fracture of multiple ribs of left side. Patient fell at home, was taken to [place] ED for evaluation. Noted patient has had multiple recent falls. 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 Was transferred to [facility] for trauma evaluation. Patient was admitted under trauma to ICU. Neurosurgery consulted for prior L2-3 vertebroplasty with retropulsion of bone fragments and R L1 and R L2 TP fractures, recommended further imaging and bedrest. Orthopedic surgery consulted for R fifth metatarsal fracture, recommended non-operative management. Patient was transferred to [facility] on 06/27. Determined to be HIGH [...] involving digestive system(787.99) PAF (paroxysmal atrial fibrillation) ([facility]) 10/20/2013 Thyroid disorder Past Surgical History: PAST SURGICAL HISTORY Procedure Laterality Date APPENDECTOMY CHOLECYSTECTOMY COLONOSCOPY FLX DX W/COLLJ SPEC WHEN PFRMD 06-12-06 Repeat in COLONOSCOPY FLX DX W/COLLJ SP (more content not included)... Normal [facility] Calcium.ionized [Moles/Vol]o n 06-28-2024 Calcium.ionized (BldV) [Mass/Vol] 1.14 mmol/L Normal 1.08-1.30 [facility] Comment on above: Order Comment: Jeanettei vannessa Type: BLOOD SPECIMENOrdering Facility: [facility] Address: [address] [place] [address] Performed By: #### 1 995-0 ####[facility]ORATORYCLIA [id number] [address] STATES OF [facility] Calcium.ionized adjusted to pH 7.4 (Bld) [Moles/Vol] 1.17 mmol/L Normal 1.08-1.30 [facility] Comment on above: Order Comment: Speci men Type: BLOOD SPECIMENOrdering Facility: [facility] Address: [address] [place] [address] Performed By: #### 1 995-0 ####[facility] LABORATORYCLIA [id number] [place] [address] [place] MRI LUMBAR SPINE [...] of canal compromise. Anatomic Lumbar Variant: None Rn Paralegal: PSCB Transcribe Date/Time: Jun 28 2024 8:50A Dictated by : ANGUS BARTLETT MD This examination was interpreted and the report reviewed and electronically signed by: ANGUS BARTLETT MD on Jun 28 2024 9:02AM EST [id number] CN Normal [facility] Magnesium [facility] Magnesium [Mass/Vol] 1.7 mg/dL Normal 1.7-2.3 [facility] Comment on above: Order Comment: Christopher hurd Type: BLOOD SPECIMENOrdering Facility: [facility] Address: [address] [place] [address] Performed By: #### 2 4321-2, 07786-3, 2777- ####[facility]ITALCLIA [id number] [address] [place] Phosphate [facility] 06-28 Phosphate [Mass/Vol] 3.7 mg/dL Normal 2.7-4.8 [facility] Comment on above: Order Comment: Christopher hurd Type: BLOOD SPECIMENOrdering Facility: [facility] Address: [address] [place] [address] Performed By: #### 2 4321-2, , 27711-09 ####[facility]ITALCLIA [id number] [place] [address] [place] 25([place])D3 [facility] 20[facility] 25-hydroxyvitamin D3 [Mass/Vol] 35.2 ng/mL Normal >=30.0 [facility] Comment on above: Order Comment: Christopher hurd Type: BLOOD SPECIMENOrdering Facility: [facility] Address: [address] [place] [address] Result Comment: Clas sification of 25 [place] Vitamin D status: Deficiency: <= 20.0 ng/ml. Insufficiency: 21.0-29.0 ng/ml. Sufficiency: >= 30.0 ng/ml. Performed By: #### 1 989-3 ####[facility] LABORATORYCLIA [id number] [address] OF [facility] ALLIED HEALTH 06-27-2024 ALLIED HEALTH HNO ID: [id number] Author: ROBIN PABLO RT(Peter) Service: Radiology Author [...] PATIENT PRESENTS WITH AN IMPLANTABLE OR ATTACHED CLOTHES SEPARATOR: No ALLERGIES: Reviewed and unchanged CONTRAST ALLERGY: [...] 2024 TIME: 6:07 AM Normal [facility] CBC panel Auto (Bld)on 06-27 Erythrocyte distribution width (RBC) [Ratio] 14.6 % Normal 11.5-15.0 [facility] Comment on above: Order Comment: Speci men Type: BLOOD SPECIMENOrdering Facility: [facility] Address: [address] [place] [address] Performed By: #### 5 8410-2 ####[facility] LABORATORYCLIA [id number] [address] OF [facility] Hematocrit (Bld) [Volume fraction] 29.9 % Low 36.0-46.0 [facility] Comment on above: Order Comment: Speci men Type: BLOOD SPECIMENOrdering Facility: [facility] Address: [address] [place] [address] Performed By: #### 5 8410-2 ####[facility]ORATORYCLIA [id number] [address] [place] Hemoglobin (Bld) [Mass/Vol] 9.5 g/dL Low 11.5-15.5 [facility] Comment on above: Order Comment: Speci men Type: BLOOD SPECIMENOrdering Facility: [facility] Address: [address] [place] [address] Performed By: #### 5 8410-2 ####[facility]ATORYCLIA [id number] [address] [place] MCH (RBC) [Entitic mass] 29.9 pg Normal 26.0-34.0 [facility] Comment on above: Order Comment: Speci men Type: BLOOD SPECIMENOrdering Facility: [facility] Address: [address] [place] [address] Performed By: #### 5 8410-2 ####[facility]ATORYCLIA [id number] [address] [place] MCHC (RBC) [Mass/Vol] 31.8 g/dL Normal 30.5-36.0 [facility] Comment on above: Order Comment: Speci men Type: BLOOD SPECIMENOrdering Facility: [facility] Address: [address] [place] [address] Performed By: #### 5 8410-2 ####[facility]ATORYCLIA [id number] [address] [place] MCV (RBC) [Entitic vol] 94.0 fL Normal 80.0-100.0 [facility] Comment on above: Order Comment: Speci men Type: BLOOD SPECIMENOrdering Facility: [facility] Address: [address] [place] [address] Performed By: #### 5 8410-2 ####[facility]ORATORYCLIA [id number] [address] OF [place] Nucleated RBC (Bld) [#/Vol] 10*3/uL Normal <0.01 [facility] Comment on above: Order Comment: Speci men Type: BLOOD SPECIMENOrdering Facility: [facility] Address: [address] [place] [address] Performed By: #### 5 8410-2 ####[facility]ATORYCLIA [id number] [address] [place] Platelet mean volume (Bld) [Entitic vol] 9.3 fL Normal 9.0-12.7 [facility] Comment on above: Order Comment: Speci men Type: BLOOD SPECIMENOrdering Facility: [facility] Address: [address] [place] [address] Performed By: #### 5 8410-2 ####[facility]ATORYCLIA [id number] [address] STATES [place] Platelets (Bld) [#/Vol] 264 10*3/uL Normal 150-400 [facility] Comment on above: Order Comment: Speci men Type: BLOOD SPECIMENOrdering Facility: [facility] Address: [address] [place] [address] Performed By: #### 5 8410-2 ####[facility]ORATORYCLIA [id number] [address] OF [facility] RBC (Bld) [#/Vol] 3.18 10*6/uL Low 3.90-5.20 [facility] Comment on above: Order Comment: Speci men Type: BLOOD SPECIMENOrdering Facility: [facility] Address: [address] [place] [address] Performed By: #### 5 8410-2 ####[facility] LABORATORYCLIA [id number] [address] WBC (Bld) [#/Vol] 6.47 10*3/uL Normal 3.70-11.00 [facility] Comment on above: Order Comment: Speci men Type: BLOOD SPECIMENOrdering Facility: [facility] Address: [address] [place] [address] Performed By: #### 5 8410-2 ####[facility] LABORATORYCLIA [id number] [address] CONSULTon 06-27-2024 CONSULT HNO ID: [id number] Author: GILL ADORNO DPM Service: Orthopaedic Surgery Author Type: Physician Type: Consults Filed: 06/28/2024 18:51 Note Text: ORTHOPAEDIC SURGERY CONSULT Pt: JOYCE SOLOMON Date of Consultation: 06/27/2024 Physician Consulted: Dr. Adorno Reason for Consultation: Right fifth metatarsal fracture 89 year old female presented to [facility] ED on 06/27/2024 for evaluation by [...] Tonsillectomy Allergies: Sutures; Actonel [Risedronate Sodium]; Adhes. Mdig-Amtl-Qpidxlatzi um; Beets; Cantaloupe; Eggplant; Fosamax [Alendronate Sodium]; [...] (more content not included)... Normal [facility] CONSULT HNO ID: [id number] Author: KALYAN KENNEDY PA-C Service: Neurosurgery Author Type: Physician Lithographic Printing Machinist Type: Consults Filed: 06/27/2024 05:42 Note Text: [...] involving digestive system(787.99) PAF (paroxysmal atrial fibrillation) ([facility]) 10/20/2013 Thyroid disorder PAST SURGICAL [...] GI Upset States had GI bleed Adhes. Jquu-Fibi-Wk* Beets Rash raised injection site when allergy [...] iv flush bag 20 mL INTRAVENOUS PRN Fgiueroa Rodriguez DO modafinil 100 mg tab(s) (PROVIGIL) 100 mg ORA (more content not included)... Normal [facility] CT ABD/PEL W IVCONon 025 CT ABD/PEL W IVCON * * *Final Report* * * DATE OF EXAM: Jun 27 2024 6:20AM [facility] 0530 - CT ABD/PEL W IVCON [...] Bibasilar opacities possible pneumonia on the right. Rn Paralegal: PSCB Transcribe Date/Time: Jun 27 2024 7:30A Dictated by : CHARLIE DELEON MD This examination was interpreted and the report reviewed and electronically signed by: CHARLIE DELEON MD on Jun 27 2024 7:50AM EST [id number] CN Normal [facility] CT LUMBAR SPINE W RECON DATA -NBon 06-27-2024 CT LUMBAR SPINE W RECON DATA -NB * * *Final Report* * * DATE OF EXAM: Jun 27 2024 6:20AM [facility] 0481 - CT LUMBAR SPINE W [...] Bibasilar opacities possible pneumonia on the right. Rn Paralegal: [facility] Transcribe Date/Time: Jun 27 2024 7:30A Dictated by : CHARLIE DELEON MD This examination was interpreted and the report reviewed and electronically signed by: CHARLIE DELEON MD on Jun 27 2024 7:50AM EST [id number] CN Normal [facility] CT THORACIC SPINE WO IVCONon 06-27-2024 CT THORACIC SPINE WO IVCON * * *Final Report* * * DATE OF EXAM: Jun 27 2024 6:20AM [facility] 0514 - CT THORACIC SPINE WO [...] Bibasilar opacities possible pneumonia on the right. Rn Paralegal: [facility] Transcribe Date/Time: Jun 27 2024 7:30A Dictated by : CHARLIE DELEON MD This examination was interpreted and the report reviewed and electronically signed by: CHARLIE DELEON MD on Jun 27 2024 7:50AM EST [id number] CN Normal [facility] CTA HEAD W IVCONon 5 CTA HEAD W IVCON * * *Final Report* * * DATE OF EXAM: Jun 27 2024 6:20AM [facility] 0022 - CTA HEAD W IVCON [...] Circulation: No large vessel occlusion or aneurysm. Acute Specialist (topogram) images: No significant findings. IMPRESSION: 1. No intracranial large vessel occlusion or aneurysm. 2. No blunt vascular injury or hemodynamically significant stenosis of the common carotid, internal carotid, or vertebral arteries. Arterial blood flow was measured to detect acute large vessel occlusion by computer aided detection software: Not Performed. Concordance between software and imaging review: Not Applicable. Rn Paralegal: CLINT Transcribe Date/Time: Jun 27 2024 6:45A Dictated by : JOSE LÓPEZ MD This examination was interpreted and the report reviewed and electronically signed by: JOSE LÓPEZ MD on Jun 27 2024 6:51AM EST [id number] CN Normal [facility] CTA NECK W IVCONon 5 CTA NECK W IVCON * * *Final Report* * * DATE OF EXAM: Jun 27 2024 6:20AM [facility] 0024 - CTA NECK W IVCON [...] Circulation: No large vessel occlusion or aneurysm. Acute Specialist (topogram) images: No significant findings. IMPRESSION: 1. No intracranial large vessel occlusion or aneurysm. 2. No blunt vascular injury or hemodynamically significant stenosis of the common carotid, internal carotid, or vertebral arteries. Arterial blood flow was measured to detect acute large vessel occlusion by computer aided detection software: Not Performed. Concordance between software and imaging review: Not Applicable. Rn Paralegal: PSCB Transcribe Date/Time: Jun 27 2024 6:45A Dictated by : JOSE LÓPEZ MD This examination was interpreted and the report reviewed and electronically signed by: JOSE LÓPEZ MD on Jun 27 2024 6:51AM EST [id number] CN Normal [facility] Calcium.ionized [Moles/Vol]o n 06-27-2024 Calcium.ionized (BldV) [Mass/Vol] 1.11 mmol/L Normal 1.08-1.30 [facility] Comment on above: Order Comment: Speci men Type: BLOOD SPECIMENOrdering Facility: [facility] Address: [address] [place] [address] Performed By: #### 1 995-0 ####[facility] LABORATORYCLIA [id number] [address] STATES OF [facility] Calcium.ionized adjusted to pH 7.4 (Bld) [Moles/Vol] 1.14 mmol/L Normal 1.08-1.30 [facility] Comment on above: Order Comment: Speci men Type: BLOOD SPECIMENOrdering Facility: [facility] Address: [address] [place] [address] Performed By: #### 1 995-0 ####[facility] LABORATORYCLIA [id number] [address] [place] Comprehensive metabolic 2000 panelon 06-27-2024 Albumin [Mass/Vol] 3.1 g/dL Low 3.9-4.9 [facility] Comment on above: Order Comment: Speci men Type: BLOOD SPECIMENOrdering Facility: [facility] Address: [address] [place] [address] Performed By: #### 2 777-1, 99463-0, 3040-3, 59724-5 ####[facility] LABORATORYCLIA [id number] [address] STATES [place] ALP [Catalytic activity/Vol] 56 U/L Normal 34-123 [facility] Comment on above: Order Comment: Speci men Type: BLOOD SPECIMENOrdering Facility: [facility] Address: [address] [place] [address] Performed By: #### 2 777-1, 44978-5, 3, 25009-9 ####[facility] LABORATORYCLIA [id number] [place] [address] [place] ALT With P-5'-P [Catalytic activity/Vol] 10 U/L Normal 7-38 [facility] Comment on above: Order Comment: Speci men Type: BLOOD SPECIMENOrdering Facility: [facility] Address: [address] [place] [address] Performed By: #### 2 777-1, 65388-3, 3, 36985-6 ####[facility] LABORATORYCLIA [id number] [address] STATES OF [facility] Anion gap [Moles/Vol] 9 mmol/L Normal 8-15 [facility] Comment on above: Order Comment: Speci men Type: BLOOD SPECIMENOrdering Facility: [facility] Address: [address] [place] [address] Performed By: #### 2 777-1, 87180-4, 3, 41264-2 ####[facility] LABORATORYCLIA [id number] [address] STATES OF [facility] AST With P-5'-P [Catalytic activity/Vol] 22 U/L Normal 13-35 [facility] Comment on above: Order Comment: Speci men Type: BLOOD SPECIMENOrdering Facility: [facility] Address: [address] [place] [address] Performed By: #### 2 777-1, 76519-4, 3039-3, 47981-4 ####[facility] LABORATORYCLIA [id number] [place] [address] [place] Bilirubin [Mass/Vol] 0.4 mg/dL Normal 0.2-1.3 [facility] Comment on above: Order Comment: Speci men Type: BLOOD SPECIMENOrdering Facility: [facility] Address: [address] [place], [place] [address] Performed By: #### 2 777-1, 88094-7, 3040-3, 79898-3 ####[facility] LABORATORYCLIA [id number] [place] [address] [place] Calcium [Mass/Vol] 8.5 mg/dL Normal 8.5-10.2 [facility] Comment on above: Order Comment: Speci men Type: BLOOD SPECIMENOrdering Facility: [facility] Address: [address] [place] [address] Performed By: #### 2 777-1, 69022-2, 3040-3, 88892-8 ####[facility] LABORATORYCLIA [id number] [place] [address] [place] Chloride [Moles/Vol] 98 mmol/L Normal 98-107 [facility] Comment on above: Order Comment: Speci men Type: BLOOD SPECIMENOrdering Facility: [facility] Address: [address] [place] [address] Performed By: #### 2 777-1, 80613-5, 3039-3, 46491-3 ####[facility] LABORATORYCLIA [id number] [place] [address] [place] CO2 [Moles/Vol] 31 mmol/L High 22-30 [facility] Comment on above: Order Comment: Speci men Type: BLOOD SPECIMENOrdering Facility: [facility] Address: [address] [place], [place] [address] Performed By: #### 2 777-1, 68963-3, 3040-3, 21749-2 ####[facility] LABORATORYCLIA [id number] [place] [address] [place] Creatinine [Mass/Vol] 0.86 mg/dL Normal 0.58-0.96 [facility] Comment on above: Order Comment: Speci men Type: BLOOD SPECIMENOrdering Facility: [facility] Address: [address] [place] [address] Performed By: #### 2 777-1, 30640-3, 3040-3, 74807-3 ####[facility] HOSPITALIA [id number] [address] OF [facility] Creatinine and Glomerular filtration rate.predicted panel (S/P/Bld) 65 mL/min/1.73m??? Normal >=60 [facility] Comment on above: Order Comment: Christopher vannessa Type: BLOOD SPECIMENOrdering Facility: [facility] Address: [address] [place] [address] Result Comment: Michael mated Glomerular Filtration Rate [...] actual GFR. Performed By: #### 2 777-1, 43327-4, 3039-3, 85823-3 ####[facility] HOSPITALIA [id number] [address] [place] Glucose [Mass/Vol] 88 mg/dL Normal 74-99 [facility] Comment on above: Order Comment: Christopher hurd Type: BLOOD SPECIMENOrdering Facility: [facility] Address: [address] [place] [address] Result Comment: The [place] [employer] (ADA) provides guidance for cutoff [...] Standards of Medical Care in Diabetes 2016, [place] [employer]. Diabetes Care. 2016.39(Suppl 1). Performed By: #### 2 777-1, 64190-5, 0-3, 44288-8 ####[facility] LABORATORYCLIA [id number] [place] [address] [place] Potassium [Moles/Vol] 3.3 mmol/L Low 3.7-5.1 [facility] Comment on above: Order Comment: Speci men Type: BLOOD SPECIMENOrdering Facility: [facility] Address: [address] [place] [address] Performed By: #### 2 777-1, 11033-5, 3, 61732-1 ####[facility] LABORATORYCLIA [id number] [place] [address] [place] Protein [Mass/Vol] 5.2 g/dL Low 6.3-8.0 [facility] Comment on above: Order Comment: Speci men Type: BLOOD SPECIMENOrdering Facility: [facility] Address: [address] [place] [address] Performed By: #### 2 777-1, , 3, 31441-4 ####[facility] LABORATORYCLIA [id number] [place] [address] [place] Sodium [Moles/Vol] 138 mmol/L Normal 136-144 [facility] Comment on above: Order Comment: Speci men Type: BLOOD SPECIMENOrdering Facility: [facility] Address: [address] [place] [address] Performed By: #### 2 777-1, 60245-9, 3, 93377-1 ####[facility] LABORATORYCLIA [id number] [place] [address] [place] Urea nitrogen [Mass/Vol] 16 mg/dL Normal 7-21 [facility] Comment on above: Order Comment: Speci men Type: BLOOD SPECIMENOrdering Facility: [facility] Address: [address] [place] [address] Performed By: #### 2 777-1, 19685-5, 3039-3, 84007-0 ####[facility] LABORATORYCLIA [id number] [place] [address] [place] ED NOTEon 02-16-2025 ED NOTE HNO ID: [id number] Author: ROLA JIMENEZ RN Service: Emergency Medicine Author Type: Registered Nurse Type: ED Notes Filed: 06/27/2024 16:39 Note Text: Pt placed on bedpan however did not have a bowel movement. Pads changed and pt given new sheet and pad. Some urine staining noted on pad. Normal [facility] ED NOTE HNO ID: [id number] Author: ROLA JIMENEZ RN Service: Emergency Medicine Author Type: Registered Nurse Type: ED Notes Filed: 06/27/2024 14:44 Note Text: Pt eating lunch tray Normal [facility] ED NOTE HNO ID: [id number] Author: ROLA JIMENEZ RN Service: Emergency Medicine Author Type: Registered Nurse Type: ED Notes Filed: 06/27/2024 13:56 Note Text: Pt requested BP cuff be removed Normal [facility] ED NOTE HNO ID: [id number] Author: MARTHA KYLE, ABLERT Service: Nursing Author Type: Registered Nurse Type: ED Notes Filed: 06/27/2024 00:14 Note Text: Spoke with Dr. Hernandez about pts Bps. He is aware and did say looking through history this is what the pt typically runs. Will continue to monitor. Normal [facility] ED PROV NOTEon 06-27-2024 ED PROV NOTE HNO ID: [id number] Author: NORMA WONG MD Service: Emergency Medicine Author Type: Physician Type: ED Provider Notes Filed: 06/27/2024 02:43 Note Text: ED Resident Continuation of Care Note June 27, 2024 1:50 AM Joyce Solomon was endorsed to me by Dr. Concepcion. In brief, the patient is an 89-year-old female transfer from [place] for trauma. Found to have left 3-8 [...] Gertrudis Hernandez MD Emergency Medicine Resident, PGY-3 [facility] This note was created using Terr[employer] dictation software. Every attempt was made to proofread, however you may find errors regardless of how insignificant they may be. They are purely unintentional and if there are any concerns regarding this dictation, please do not hesitate to call the dictating provider for clarification. GERTRUDIS HERNANDEZ 06/27/24 0152 MD [place] D 06/27/24 0243 Normal [facility] Ethanol SerPl-mCncon 025 Ethanol [Mass/Vol] mg/dL Normal <11 [facility] Comment on above: Order Comment: Speci men Type: BLOOD SPECIMENOrdering Facility: [facility] Address: [address] [place] [address] Performed By: #### 5 643-2 ####[facility] LABORATORYCLIA [id number] [place] [address] [place] [facility] HISTORY PHYSICALon HISTORY PHYSICAL HNO ID: [id number] Author: AYAZ DOE MD Service: General Surgery [...] involving digestive system(787.99) PAF (paroxysmal atrial fibrillation) ([facility]) 10/20/2013 Thyroid disorder PAST SURGICAL HISTORY Procedure Laterality Date APPENDECTOMY CHOLECYSTECTOMY (more content not included)... Normal [facility] HISTORY PHYSICAL HNO ID: [id number] Author: KAYLEEN BELTRAN MD Service: General Surgery Author Type: Physician Type: H&P Filed: 06/27/2024 14:21 Note Text: TRAUMA SURGERY HANDP [facility] ARRIVAL DATE: 06/26/2024 ARRIVAL TIME: PM CATEGORY: [...] GI Upset States had GI bleed Adhes. Mpld-Ipzm-Zm* Beets Rash raised injection site when allergy [...] involving digestive system(787.99) PAF (paroxysmal atrial fibrillation) ([facility]) 10/20/2013 Thyroid disorder PAST SURGICAL [...] (more content not included)... Normal [facility] Lipase SerPl-cCncon 06-27-19 Lipase [Catalytic activity/Vol] 14 U/L Low [facility] Comment on above: Order Comment: Specsteve hurd Type: BLOOD SPECIMENOrdering Facility: [facility] Address: [address] [place] [address] Performed By: #### 2 777-1, 07332-8, 3040-3, 34766-1 ####[facility]ORATORYCLIA [id number] [address] STATES OF [facility] Magnesium SerPl-mCncon 06-27 Magnesium [Mass/Vol] 1.7 mg/dL Normal 1.7-2.3 [facility] Comment on above: Order Comment: Specsteve hurd Type: BLOOD SPECIMENOrdering Facility: [facility] Address: [address] [place] [address] Performed By: #### 2 777-1, 07010-1, 3039-3, 28234-6 ####[facility] LABORATORYCLIA [id number] [address] [place] PT panel Coag (PPP)on 2024 INR Coag (PPP) [Relative time] 1.0 {INR} Normal 0.9-1.3 [facility] Comment on above: Order Comment: Christopher hurd Type: BLOOD SPECIMENOrdering Facility: [facility] Address: [address] [place] [address] Result Comment: Nathalie min K Antagonist (VKA) Therapeutic Range: INR 2 to 3 (Target INR of 2.5) Note: For patients treated with VKA drugs, such as warfarin, the [place] [employer] 2012 Guideline recommends [...] Chest 2012, 141:7S-47S Cam RA, et al. [facility] 2017, 70: 252-289 Performed By: #### 1 4979-9, 00714-9 ####[facility]PITALCLIA [id number] [place] [address] [place] PT Coag (PPP) [Time] 11.2 s Normal 9.7-13.0 [facility] Comment on above: Order Comment: Speci men Type: BLOOD SPECIMENOrdering Facility: [facility] Address: [address] [place] [address] Performed By: #### 1 4979-9, 09928-9 ####[facility]PITALCLIA [id number] [place] [address] [place] Phosphate SerPl-mCncon 06-27 Phosphate [Mass/Vol] 3.5 mg/dL Normal 2.7-4.8 [facility] Comment on above: Order Comment: Speci men Type: BLOOD SPECIMENOrdering Facility: [facility] Address: [address] [place] [address] Performed By: #### 2 777-1, 38467-2, 3040-3, 77455-1 ####[facility] LABORATORYCLIA [id number] [place] [address] [place] STAPHYLOCOCCUS AUREUS AND MR SA SCREEN, PCR, NASALon 06-27-2024 S. aureus and MRSA panel RHYS+probe (Nose) Not detected Normal Not Detected [facility] Comment on above: Order Comment: Speci men Type: SWABOrdering Facility: [facility] Address: [address] [place] [address] Performed By: #### S APCR ####[facility] LABORATORYCLIA [id number] [address] OF [place] TOXICOLOGY SCREEN, ROUTINE U RINEon 06-27-2024 Amphetamines Confirm (U) [Mass/Vol] Negative Normal Negative [facility] Comment on above: Order Comment: Speci men Type: URINE SPECIMENOrdering Facility: [facility] Address: [address] [place] [address] Result Comment: Cuto ff threshold at 1000 ng/mL. Performed By: #### U TOX2 ####[facility]ORATORYCLIA [id number] [address] [place] BARBITURATES, URINE Negative Normal Negative [facility] Comment on above: Order Comment: Speci men Type: URINE SPECIMENOrdering Facility: [facility] Address: [address] [place] [address] Result Comment: Cuto ff threshold at 200 ng/mL. Performed By: #### U TOX2 ####[facility]ORATORYCLIA [id number] [place] [address] [place] BENZODIAZEPINES, UR Negative Normal Negative [facility] Comment on above: Order Comment: Speci men Type: URINE SPECIMENOrdering Facility: [facility] Address: [address] [place] [address] Result Comment: Cuto ff threshold at 200 ng/mL. Performed By: #### U TOX2 ####[facility]ORATORYCLIA [id number] [place] [address] [place] Cannabinoids Screen Ql (U) Negative Normal Negative [facility] Comment on above: Order Comment: Speci men Type: URINE SPECIMENOrdering Facility: [facility] Address: [address] [place] [address] Result Comment: Cuto ff threshold at 50 ng/mL. Performed By: #### U TOX2 ####[facility]ORATORYCLIA [id number] [place] [address] [place] Cocaine Ql (U) Negative Normal Negative [facility] Comment on above: Order Comment: Speci men Type: URINE SPECIMENOrdering Facility: [facility] Address: [address] [place] [address] Result Comment: Cuto ff threshold at 300 ng/mL. Performed By: #### U TOX2 ####[facility] LABORATORYCLIA [id number] [address] [place] Ethanol (U) [Mass/Vol] <11 Normal <11 [facility] Comment on above: Order Comment: Speci men Type: URINE SPECIMENOrdering Facility: [facility] Address: [address] [place] [address] Performed By: #### U TOX2 ####[facility] LABORATORYCLIA [id number] [address] Opiates Screen Ql (U) Negative Normal Negative [facility] Comment on above: Order Comment: Speci men Type: URINE SPECIMENOrdering Facility: [facility] Address: [address] [place] [address] Result Comment: Cuto ff threshold at 300 ng/mL. Performed By: #### U TOX2 ####[facility]ORATORYCLIA [id number] [address] oxyCODONE cutoff Screen (U) [Mass/Vol] Negative Normal Negative [facility] Comment on above: Order Comment: Speci men Type: URINE SPECIMENOrdering Facility: [facility] Address: [address] [place] [address] Performed By: #### U TOX2 ####[facility] LABORATORYCLIA [id number] [address] Phencyclidine Ql (U) Negative Normal Negative [facility] Comment on above: Order Comment: Speci men Type: URINE SPECIMENOrdering Facility: [facility] Address: [address] [place] [address] Result Comment: Cuto ff threshold at 25 ng/mL. Performed By: #### U TOX2 ####[facility]ORATORYCLIA [id number] [address] TYPE + SCREENon 06-27-2024 ABO A Normal [facility] Comment on above: Order Comment: Speci men Type: BLOOD SPECIMENOrdering Facility: [facility] Address: [address] [place] [address] Performed By: #### T SCR ####[facility] BLOOD BANKCLIA [id number] [address] Rh Nom (Bld) Positive Normal [facility] Comment on above: Order Comment: Speci men Type: BLOOD SPECIMENOrdering Facility: [facility] Address: [address] [place] [address] Performed By: #### T SCR ####[facility] BLOOD BANKCLIA [id number] [address] TYPE AND SCREEN EXPIRATION 06/30/2024 23:59 Normal [facility] Comment on above: Order Comment: Speci men Type: BLOOD SPECIMENOrdering Facility: [facility] Address: [address] [place] [address] Performed By: #### T SCR ####[facility] BLOOD BANKCLIA [id number] [address] XR CHEST 2V FRONTAL/LATon XR CHEST [...] described above. A follow-up exam is recommended. Rn Paralegal: [facility] Transcribe Date/Time: Jun 27 2024 4:05P Dictated by : DENYS RILEY MD This examination was interpreted and the report reviewed and electronically signed by: DENYS RILEY MD on Jun 27 2024 4:07PM EST [id number] CN Normal [facility] XR FOOT 3V AP/LAT/OBL LTon 0 [...] foreign body. IMPRESSION: No acute osseous abnormality. Rn Paralegal: [facility] Transcribe Date/Time: Jun 28 2024 7:40A Dictated by : VITO SALCIDO MD This examination was interpreted and the report reviewed and electronically signed by: VITO SALCIDO MD on Jun 28 2024 7:43AM EST [id number] CN Normal [facility] aPTT PPPon 06-27-2024 aPTT Coag (PPP) [Time] 25.9 s Normal 23.0-32.4 [facility] Comment on above: Order Comment: Speci men Type: BLOOD SPECIMENOrdering Facility: [facility] Address: [address] [place] [address] Performed By: #### 1 4979-9, 20065-2 ####[facility] LABORATORYCLIA [id number] [place] [address] [place] 12 Lead EKGon 06-26-2024 12 Lead EKG Normal [facility] Absolute lymphocyte countOrd ered By: Jaiden Fontaine on 06-26-2024 Lymphocytes Auto (Unsp spec) [#/Vol] 0.91 10*3/uL 0.83-4.51 [facility] Absolute neutrophil countOrd ered By: Jaiden Fontaine on 06-26-2024 Absolute neutrophil count 5.7 X10^3/uL 2.0-7.7 [facility] Automated lymphocyte count a s percentage of total leukocytesOrdered By: Jaiden Greenblack on 06-26-2024 Lymphocytes/100 WBC Auto (Unsp spec) 12.4 % Low 19-41 [facility] Basic Metabolic Profile (BMP )on 06-26-2024 BUN/CRE 20.1 RATIO High 10-20 [facility] Comment on above: Order Comment: 'TROP ' Serial specimen #1, #2 or #3: 1 Performed By: #### L 500.2500, L100.0100, L501.4020 ####[facility] [address] [place], [address] CA,Total 9.7 mg/dL Normal 8.5-10.1 [facility] Comment on above: Order Comment: 'TROP ' Serial specimen #1, #2 or #3: 1 Performed By: #### L 500.2500, L100.0100, L501.4020 ####[facility] [address] [place], [address] Chloride [Moles/Vol] 97 mmol/L Low 98-107 [facility] Comment on above: Order Comment: 'TROP ' Serial specimen #1, #2 or #3: 1 Performed By: #### L 500.2500, L100.0100, L501.4020 ####[facility] [address] [place], [address] CO2 [Moles/Vol] 33.0 mmol/L High 21.0-32.0 [facility] Comment on above: Order Comment: 'TROP ' Serial specimen #1, #2 or #3: 1 Performed By: #### L 500.2500, L100.0100, L501.4020 ####[facility] [address] [place], [address] Creatinine [Mass/Vol] 0.89 mg/dL Normal 0.55-1.02 [facility] Comment on above: Order Comment: 'TROP ' Serial specimen #1, #2 or #3: 1 Result Comment: The validity of the calculated GFR GFRAA in patients over70 years has not been determined. Clinical correlation isessential. Performed By: #### L 500.2500, L100.0100, L501.4020 ####[facility] [address] [place], [address] ECRCL 39.73 ml/min Normal [facility] Comment on above: Order Comment: 'TROP ' Serial specimen #1, #2 or #3: 1 Performed By: #### L 500.2500, L100.0100, L501.4020 ####[facility] [address] [place], [address] EST GFR - AA 77 mL/min Normal >60 [facility] Comment on above: Order Comment: 'TROP ' Serial specimen #1, #2 or #3: 1 Result Comment: Afri can Ug[place] GFR Calc Performed By: #### L 500.2500, L100.0100, L501.4020 ####[facility] [address] [place], [address] GAP 6 Normal 5-15 [facility] Comment on above: Order Comment: 'TROP ' Serial specimen #1, #2 or #3: 1 Performed By: #### L 500.2500, L100.0100, L501.4020 ####[facility] [address] [place], [address] GFR/1.73 sq M.predicted among non-blacks MDRD (S/P/Bld) [Vol rate/Area] 63 mL/min/{1.73_m2} Normal >60 [facility] Comment on above: Order Comment: 'TROP ' Serial specimen #1, #2 or #3: 1 Result Comment: Non- GFR Calc Performed By: #### L 500.2500, L100.0100, L501.4020 ####[facility] [address] [place], [address] Glucose [Mass/Vol] 114 mg/dL High 74-106 [facility] Comment on above: Order Comment: 'TROP ' Serial specimen #1, #2 or #3: 1 Result Comment: Fast ing Glucose result from 100 to 125 mg/dLsuggests IMPAIRED HOMEOSTASIS per A.D.A. criteria. Performed By: #### L 500.2500, L100.0100, L501.4020 ####[facility] [address] [place], [address] Potassium [Moles/Vol] 3.8 mmol/L Normal 3.5-5.1 [facility] Comment on above: Order Comment: 'TROP ' Serial specimen #1, #2 or #3: 1 Performed By: #### L 500.2500, L100.0100, L501.4020 ####[facility] [address] [place], [address] Sodium [Moles/Vol] 136 mmol/L Normal 136-145 [facility] Comment on above: Order Comment: 'TROP ' Serial specimen #1, #2 or #3: 1 Performed By: #### L 500.2500, L100.0100, L501.4020 ####[facility] [address] [place], [address] Urea nitrogen [Mass/Vol] 18 mg/dL Normal 7-18 [facility] Comment on above: Order Comment: 'TROP ' Serial specimen #1, #2 or #3: 1 Performed By: #### L 500.2500, L100.0100, L501.4020 ####[facility] [address] [place], [address] Basophil percentageOrdered B y: Jaiden Fontaine on 06-26-2024 Basophils/100 WBC (Bld) 0.7 % 0-1 [facility] Bilirubin Test strip Ql (U)O rdered By: Jaiden Fontaine on 06-26-2024 Bilirubin Ql (U) Negative Negative [facility] Blood urea nitrogen (BUN)/cr eatinine ratioOrdered By: Jaiden Fontaine on 06-26-2024 Blood urea nitrogen (BUN)/creatinine ratio 20.1 RATIO High 10-20 [facility] Brain/Head without Contrasto n 06-26-2024 Brain/Head without Contrast Normal [facility] CBC W/Diff, Automatedon 06-12 Absolute Lymph 0.91 X10 3/uL Normal 0.83-4.51 [facility] Comment on above: Performed By: #### L 500.2500, L100.0100, L501.4020 ####[facility] [address] [place], [address] Absolute Neut 5.7 X10 3/uL Normal 2.0-7.7 [facility] Comment on above: Performed By: #### L 500.2500, L100.0100, L501.4020 ####[facility] [address] [place], [address] Basophils/100 WBC (Bld) 0.7 % Normal 0-1 [facility] Comment on above: Performed By: #### L 500.2500, L100.0100, L501.4020 ####[facility] [address] [place], [address] Eosinophils/100 WBC (Bld) 0.7 % Normal 0-5 [facility] Comment on above: Performed By: #### L 500.2500, L100.0100, L501.4020 ####[facility] [address] [place], [address] Erythrocyte distribution width (RBC) [Ratio] 15.2 % High 11.6-14.6 [facility] Comment on above: Performed By: #### L 500.2500, L100.0100, L501.4020 ####[facility] [address] [place], [address] Hematocrit (Bld) [Volume fraction] 33.6 % Low 37-47 [facility] Comment on above: Performed By: #### L 500.2500, L100.0100, L501.4020 ####[facility] [address] [place], [address] Hemoglobin (Bld) [Mass/Vol] 10.6 g/dL Low 12.0-15.0 [facility] Comment on above: Performed By: #### L 500.2500, L100.0100, L501.4020 ####[facility] [address] [place], [address] IG% 1.000 High 0.0-0.9 [facility] Comment on above: Result Comment: IG% - Immature Granulocytes (promyelocytes, myelocytes andmetamyelocytes) > 1% indicates that a LEFT SHIFT is Present. Performed By: #### L 500.2500, L100.0100, L501.4020 ####[facility] [address] [place], [address] Lymphocytes/100 WBC (Bld) 12.4 % Low 19-41 [facility] Comment on above: Performed By: #### L 500.2500, L100.0100, L501.4020 ####[facility] [address] [place], [address] MCH (RBC) [Entitic mass] 29.9 pg Normal 27.0-32.0 [facility] Comment on above: Performed By: #### L 500.2500, L100.0100, L501.4020 ####[facility] [address] [place], [address] MCHC (RBC) [Mass/Vol] 31.5 g/dL Low 32-36 [facility] Comment on above: Performed By: #### L 500.2500, L100.0100, L501.4020 ####[facility] [address] [place], [address] MCV (RBC) [Entitic vol] 94.9 fL Normal 81-99 [facility] Comment on above: Performed By: #### L 500.2500, L100.0100, L501.4020 ####[facility] [address] [place], [address] Monocytes/100 WBC (Bld) 7.7 % Normal 0-10 [facility] Comment on above: Performed By: #### L 500.2500, L100.0100, L501.4020 ####[facility] [address] [place], [address] Neutrophils/100 WBC (Bld) 77.5 % High 47-70 [facility] Comment on above: Performed By: #### L 500.2500, L100.0100, L501.4020 ####[facility] [address] [place], [address] Nucleated RBC (Bld) [#/Vol] 0 10*3/uL Normal 0-5 [facility] Comment on above: Performed By: #### L 500.2500, L100.0100, L501.4020 ####[facility] [address] [place], [address] Platelet mean volume (Bld) [Entitic vol] 9.2 fL Normal 6.2-12.0 [facility] Comment on above: Performed By: #### L 500.2500, L100.0100, L501.4020 ####[facility] [address] [place], [address] Platelets (Bld) [#/Vol] 289 10*3/uL Normal 150-450 [facility] Comment on above: Performed By: #### L 500.2500, L100.0100, L501.4020 ####[facility] [address] [place], [address] RBC (Bld) [#/Vol] 3.54 10*6/uL Low 4.2-5.4 [facility] Comment on above: Performed By: #### L 500.2500, L100.0100, L501.4020 ####[facility] [address] [place], [address] RDW SD 53.1 fl High 35.1-43.9 [facility] Comment on above: Performed By: #### L 500.2500, L100.0100, L501.4020 ####[facility] [address] [place], [address] WBC (Bld) [#/Vol] 7.3 10*3/uL Normal 4.4-11.0 [facility] Comment on above: Performed By: #### L 500.2500, L100.0100, L501.4020 ####[facility] [address] [place], [address] Calcium [Mass/Vol]Ordered By : Jaiden Fontaine on 06-26-2024 Serum or plasma calcium measurement (mass/volume) 9.7 mg/dL 8.5-10.1 [facility] Carbon dioxide measurementOr dered By: Jaiden Fontaine on 06-26-2024 CO2 [Moles/Vol] 33.0 mmol/L High 21.0-32.0 [facility] Carbon dioxide measurement 33.0 mmol/L High 21.0-32.0 [facility] Chest without Contraston Chest without Contrast Normal [facility] Chloride measurementOrdered By: Jaiden Fontaine on 06-26-2024 Chloride [Moles/Vol] 97 mmol/L Low 98-107 [facility] Chloride measurement 97 mmol/L Low 98-107 [facility] Clarity (U)Ordered By: Jaiden Fontaine on 06-26-2024 Urine clarity Clear Clear [facility] Color (U)Ordered By: Jaiden de jesus on 06-26-2024 Urine color determination Yellow Yellow [facility] Creatinine [Mass/Vol]Ordered By: Jaiden Fontaine on 06-26-2024 Serum or plasma creatinine measurement (mass/volume) 0.89 mg/dL 0.55-1.02 [facility] ED NOTEon 06-26-2024 ED NOTE HNO ID: [id number] Author: MARTHA KYLE, RN Service: Nursing Author Type: Registered Nurse Type: ED Notes Filed: 06/26/2024 20:33 Note Text: Pt asking and concerned about getting her night time medications Normal [facility] ED NOTE HNO ID: [id number] Author: MARTHA KYLE, ALBERT Service: Nursing Author Type: Registered Nurse Type: ED Notes Filed: 06/26/2024 20:32 Note Text: Pt placed on air sampling and monitoring, bp cuff and pulse ox attached. Pt is aANDox3. TORRES MARTINEZ. R foot is wrapped with a walking shoe Normal [facility] ED NOTE HNO ID: [id number] Author: ZENOBIA VALDEZ RN Service: ? Author Type: Registered Nurse Type: ED Notes Filed: 06/26/2024 20:27 Note Text: Bed: 36-ED Expected date: Expected time: Means of arrival: Comments: TRANSFER Normal [facility] ED PROV NOTEon 06-26-2024 ED PROV NOTE HNO ID: [id number] Author: TAM SERVIN MD Service: Emergency Medicine Author Type: Physician Type: ED Provider Notes Filed: 06/27/2024 00:18 Note Text: ED CONTINUATION OF CARE NOTE Code Status: Prior Assumed care from: transfer from [place] for trauma consultation Presentation / Findings / Interventions / Plan / Items to Follow Up: 89 y/o F with hx of SAH, HTN, paroxsymal afib, restless leg syndrome, NEL on CPAP HS, mechanical fall on ASA presents as trauma consult transfer from [place] ED; had mechanical fall in AM falling [...] Hood Concepcion M.D. Emergency Medicine Resident, PGY-3 [facility] This note was created using [employer] dictation software. Every attempt was made to proofread, however you may find errors regardless of how insignificant they may be. They are purely unintentional and if there are any concerns regarding this dictation, please do not hesitate to call the dictating provider for clarification. ED Course as of 06/27/24 001 Others' Documentation Sat Jun 26, [id number] Concepcion. 89-year-old female transfer from [place] for trauma. Found to have left 3-8 [...] 2024 TIME: 9:22 PM PAGER/CONTACT #: HOOD CONECPCION 06/26/24 [id number] Attending Note I personally saw the patient [...] TAM SERVIN 06/27/24 0018 Normal [facility] Emergency Department Summary on 06-26-2024 Emergency Department Summary Normal [facility] Eosinophil percentageOrdered By: Jaiden Fontaine on 06-26-2024 Eosinophils/100 WBC (Bld) 0.7 % 0-5 [facility] Eosinophil percentage 0.7 % 0-1 [facility] Epithelial cells.squamous LM Ql (Urine sed)Ordered By: Jaiden Fontaine on 06-26-2024 Squamous epithelial cells detection in urine sediment by light microscopy 0-5 SEEN /hpf 5-10 [facility] Erythrocyte distribution wid th (RBC) [Ratio]Ordered By: Jaiden Fontaine on 06-26-2024 Erythrocyte distribution width ratio 15.2 % High 11.6-14.6 [facility] Erythrocyte distribution wid th ratioOrdered By: Jaiden Fontaine on 06-26-2024 Erythrocyte distribution width (RBC) [Ratio] 15.2 % High 11.6-14.6 [facility] Erythrocyte distribution wid th standard deviationOrdered By: Jaiden Fontaine on 06-26-2024 Erythrocyte distribution width (RBC) [Ratio] 53.1 fl High 35.1-43.9 [facility] Erythrocyte distribution width standard deviation 53.1 fl High 35.1-43.9 [facility] Estimated glomerular filtrat ion rate (GFR) AmericanOrdered By: Jaiden Fontaine on 06-26-2024 Estimated glomerular filtration rate (GFR) 77 mL/min >60 [facility] Estimation of creatinine mary ellen aranceOrdered By: Jaiden Fontaine on 06-26-2024 Estimation of creatinine clearance 39.73 ml/min [facility] Foot min 3 Viewson 5 Foot min 3 Views Normal [facility] Foot min 3 Views Normal [facility] Glomerular filtration rate ( GFR) estimationOrdered By: Jaiden Fontaine on 06-26-2024 GFR/1.73 sq M.predicted among non-blacks MDRD (S/P/Bld) [Vol rate/Area] 63 mL/min/{1.73_m2} >60 [facility] Glomerular filtration rate (GFR) estimation 63 mL/min >60 [facility] Glucose measurementOrdered B y: Jaiden Fontaine on 06-26-2024 Glucose [Mass/Vol] 114 mg/dL High 74-106 [facility] Glucose measurement 114 mg/dL High 74-106 [facility] Hematocrit Auto (Bld) [Volum e fraction]Ordered By: Jaiden Fontaine on 06-26-2024 Hematocrit (Bld) [Volume fraction] 33.6 % Low 37-47 [facility] Automated blood hematocrit (percentage) 33.6 % Low 37-47 [facility] Hemoglobin measurementOrdere d By: Jaiden Fontaine on 06-26-2024 Hemoglobin (Bld) [Mass/Vol] 10.6 g/dL Low 12.0-15.0 [facility] Hemoglobin measurement 10.6 g/dL Low 12.0-15.0 [facility] Immature granulocytes/100 WB C Auto (Bld)Ordered By: Jaiden Fontaine on 06-26-2024 Immature granulocytes/100 WBC (Bld) 1.000 % High 0.0-0.9 [facility] Automated immature granulocyte percentage 1.000 % High 0.0-0.9 [facility] Ketones Test strip Ql (U)Ord ered By: Jaiden Fontaine on 06-26-2024 Ketones Ql (U) Negative Negative [facility] L501.4020on 06-26-2024 TROPONIN-I HS 19 pg/mL Normal 3.0-54.0 [facility] Comment on above: Order Comment: 'TROP ' Serial specimen #1, #2 or #3: 1 Result Comment: Newton valdovinos Note: New Test Units and Gender Specific Reference Ranges. For more information see Policy Stat Procedure [place] High Sensitivity Troponin (TNIH) and attachments. Performed By: #### L 500.2500, L100.0100, L501.4020 ####[facility] [address] [place], [place], [address] Lymphocytes Auto (Unsp spec) [#/Vol]Ordered By: Jaiden Fontaine on 06-26-2024 Absolute lymphocyte count 0.91 X10^3/uL 0.83-4.51 [facility] Lymphocytes/100 WBC Auto (Un sp spec)Ordered By: Jaiden Fontaine on 06-26-2024 Automated lymphocyte count as percentage of total leukocytes 12.4 % Low 19-41 [facility] MCV (RBC) [Entitic vol]Order ed By: Jaiden Fontaine on 06-26-2024 MCV (mean corpuscular volume) determination 94.9 fL 81-99 [facility] MCV (mean corpuscular volume ) determinationOrdered By: Jaiden Fontaine on 06-26-2024 MCV (RBC) [Entitic vol] 94.9 fL 81-99 [facility] Mean corpuscular hemoglobin (MCH) determinationOrdered By: Jaiden Fontaine on 06-26-2024 MCH (RBC) [Entitic mass] 29.9 pg 27.0-32.0 [facility] Mean corpuscular hemoglobin (MCH) determination 29.9 pg 27.0-32.0 [facility] Mean corpuscular hemoglobin concentration (MCHC) determinationOrdered By: Jaiden Fontaine on 06-26-2024 Mean corpuscular hemoglobin concentration (MCHC) determination 31.5 g/dL Low 32-36 [facility] Mean platelet volume determi nationOrdered By: Jaiden Fontaine on 06-26-2024 Mean platelet volume determination 9.2 fl 6.2-12.0 [facility] Monocyte percentageOrdered B y: Jaiden Fontaine on 06-26-2024 Monocytes/100 WBC (Bld) 7.7 % 0-10 [facility] Monocyte percentage 7.7 % 0-10 [facility] Mucus LM Ql (Urine sed)Order ed By: Jaiden Fontaine on 06-26-2024 Mucus Ql (Urine sed) 0 SEEN /hpf [facility] Neutrophil percentageOrdered By: Jaiden Fontaine on 06-26-2024 Neutrophils/100 WBC (Bld) 77.5 % High 47-70 [facility] Neutrophil percentage 77.5 % High 47-70 [facility] Nitrite Test strip Ql (U)Ord ered By: Jaiden Fontaine on 06-26-2024 Nitrite Ql (U) Negative Negative [facility] Nucleated red blood cell per centageOrdered By: Jaiden Fontaine on 06-26-2024 Nucleated red blood cell percentage 0 % 0-5 [facility] Pelvis 1 or 2 Viewson 2024 Pelvis 1 or 2 Views Normal [facility] Platelet countOrdered By: Rm Fontaine on 06-26-2024 Platelets (Bld) [#/Vol] 289 10*3/uL 150-450 [facility] Platelet count 289 K/mm3 150-450 [facility] Potassium measurementOrdered By: Jaiden Fontaine on 06-26-2024 Potassium [Moles/Vol] 3.8 mmol/L 3.5-5.1 [facility] Potassium measurement 3.8 mmol/L 3.5-5.1 [facility] Protein Test strip Ql (U)Ord ered By: Jaiden Fontaine on 06-26-2024 Protein Ql (U) 15 mg/dl High Negative [facility] Urine protein assay by test strip, semi-quantitative 15 mg/dl High Negative [facility] RBC Auto (Bld) [#/Vol]Ordere d By: Jaiden Fontaine on 06-26-2024 RBC (Bld) [#/Vol] 3.54 10*6/uL Low 4.2-5.4 [facility] Automated blood erythrocyte count 3.54 M/mm3 Low 4.2-5.4 [facility] Serum anion gap measurementO rdered By: Jaiden Fontaine on 06-26-2024 Serum anion gap measurement 6 5-15 [facility] Serum or plasma calcium manuel urement (mass/volume)Ordered By: Jaiden Fontaine on 06-26-2024 Calcium [Mass/Vol] 9.7 mg/dL 8.5-10.1 [facility] Serum or plasma creatinine m easurement (mass/volume)Ordered By: Jaiden Fontaine on 06-26-2024 Creatinine [Mass/Vol] 0.89 mg/dL 0.55-1.02 [facility] Serum or plasma urea nitroge n measurement (mass/volume)Ordered By: Jaiden Fontaine on 06-26-2024 Urea nitrogen [Mass/Vol] 18 mg/dL 7-18 [facility] Shoulder min 2 Viewson 06-26 Shoulder min 2 Views Normal [facility] Sodium levelOrdered By: Jaiden Fontaine on 06-26-2024 Sodium [Moles/Vol] 136 mmol/L 136-145 [facility] Sodium level 136 mmol/L 136-145 [facility] Specific gravity (U) [Rel de nsity]Ordered By: Jaiden Fontaine on 06-26-2024 Urine specific gravity measurement 1.010 1.002-1.030 [facility] Spine Cervical without Contr ason 06-26-2024 Spine Cervical without Contras Normal [facility] Squamous epithelial cells de tection in urine sediment by light microscopyOrdered By: Jaiden Fontaine on 06-26-2024 Epithelial cells.squamous LM Ql (Urine sed) 0-5 SEEN /hpf 5-10 [facility] Troponin IOrdered By: Jaiden kaye on 06-26-2024 Troponin I 19 pg/mL 3.0-54.0 [facility] Troponin I 19 pg/mL 3.0-54.0 [facility] Urea nitrogen [Mass/Vol]Orde red By: Jaiden Fontaine on 06-26-2024 Serum or plasma urea nitrogen measurement (mass/volume) 18 mg/dL 7-18 [facility] Urinalysis, Completeon 06-26 RBC 0 SEEN Normal 0-5 [facility] Comment on above: Order Comment: CLEAN CATCH Performed By: #### L 400.0001 ####[facility] [address] [place], [address] Urine clarityOrdered By: Lurdes Fontaine on 06-26-2024 Clarity (U) Clear Clear [facility] Urine color determinationOrd ered By: Jaiden Fontaine on 06-26-2024 Color (U) Yellow Yellow [facility] Urine glucose detectionOrder ed By: Jaiden Fontaine on 06-26-2024 Glucose Ql (U) Normal mg/dl Normal [facility] Urine glucose detection Normal mg/dl Normal [facility] Urine leukocyte esterase det ection by dipstickOrdered By: Jaiden Fontaine on 06-26-2024 Leukocyte esterase Test strip Ql (U) Negative Negative [facility] Urine pHOrdered By: Jaiden adame on 06-26-2024 pH (U) 6.5 [pH] 5.0 - 8.0 [facility] Urine sediment bacteria coun t by microscopy (number/high power field)Ordered By: Jaiden Fontaine on 06-26-2024 Bacteria LM.HPF (Urine sed) [#/Area] 0 /[HPF] None Seen [facility] Urine specific gravity measu rementOrdered By: Jaiden Fontaine on 06-26-2024 Specific gravity (U) [Rel density] 1.010 1.002-1.030 [facility] Urine total bilirubin detect ion by test stripOrdered By: Jaiden Fontaine on 06-26-2024 Urine total bilirubin detection by test strip Negative Negative [facility] Urine urobilinogen measureme ntOrdered By: Jaiden Fontaine on 06-26-2024 Urobilinogen Ql (U) Normal mg/dl Normal [facility] White blood cell (WBC) count Ordered By: Jaiden Fontaine on 06-26-2024 WBC (Bld) [#/Vol] 7.3 10*3/uL 4.4-11.0 [facility] White blood cell (WBC) count 7.3 K/mm3 4.4-11.0 [facility] White blood cell countOrdere d By: Jaiden Fontaine on 06-26-2024 White blood cell count 0 SEEN /hpf 0-5 [facility] White blood cell count 0 SEEN /hpf [facility] pH (U)Ordered By: Jaiden do on 06-26-2024 Urine pH 6.5 5.0 - 8.0 [facility] Basic Metabolic Profile (BMP )on 06-21-2024 BUN/CRE 29.8 RATIO High 10-20 [facility] Comment on above: Order Comment: Order Date: 06/21/24Order Info: 666-05 - BMPOrder Info: [id number] - FEOrder Info: [id number] - OSCAR Performed By: #### L 100.0500, L503.6550, L500.2500, L100.9950, L503.6150 ####[facility] [address] [place], [address] CA,Total 9.6 mg/dL Normal 8.5-10.1 [facility] Comment on above: Order Comment: Order Date: 06/21/24Order Info: 666-05 - BMPOrder Info: [id number] - FEOrder Info: [id number] - OSCAR Performed By: #### L 100.0500, L503.6550, L500.2500, L100.9950, L503.6150 ####[facility] [address] [place], [address] Chloride [Moles/Vol] 100 mmol/L Normal 98-107 [facility] Comment on above: Order Comment: Order Date: 06/21/24Order Info: 06 - BMPOrder Info: [id number] - FEOrder Info: [id number] - OSCAR Performed By: #### L 100.0500, L503.6550, L500.2500, L100.9950, L503.6150 ####[facility] [address] [place], [address] CO2 [Moles/Vol] 30.0 mmol/L Normal 21.0-32.0 [facility] Comment on above: Order Comment: Order Date: 06/21/24Order Info: 666-05 - BMPOrder Info: [id number] - FEOrder Info: [id number] - OSCAR Performed By: #### L 100.0500, L503.6550, L500.2500, L100.9950, L503.6150 ####[facility] [address] [place], [address] Creatinine [Mass/Vol] 1.04 mg/dL High 0.55-1.02 [facility] Comment on above: Order Comment: Order Date: 06/21/24Order Info: 666-05 - BMPOrder Info: [id number] - FEOrder Info: [id number] - OSCAR Result Comment: The validity of the calculated GFR GFRAA in patients over70 years has not been determined. Clinical correlation isessential. Performed By: #### L 100.0500, L503.6550, L500.2500, L100.9950, L503.6150 ####[facility] [address] [place], [address] EST GFR - AA 64 mL/min Normal >60 [facility] Comment on above: Order Comment: Order Date: 06/21/24Order Info: 666-05 - BMPOrder Info: 2497-08 - FEOrder Info: [id number] - OSCAR Result Comment: Afri can Ugandan GFR Calc Performed By: #### L 100.0500, L503.6550, L500.2500, L100.9950, L503.6150 ####[facility] [address] [place], [address] GAP 8 Normal 5-15 [facility] Comment on above: Order Comment: Order Date: 06/21/24Order Info: 666-05 - BMPOrder Info: [id number] - FEOrder Info: [id number] - OSCAR Performed By: #### L 100.0500, L503.6550, L500.2500, L100.9950, L503.6150 ####[facility] [address] [place], [address] GFR/1.73 sq M.predicted among non-blacks MDRD (S/P/Bld) [Vol rate/Area] 53 mL/min/{1.73_m2} Low >60 [facility] Comment on above: Order Comment: Order Date: 06/21/24Order Info: 666-05 - BMPOrder Info: [id number] - FEOrder Info: [id number]- - OSCAR Result Comment: Non- GFR Calc Performed By: #### L 100.0500, L503.6550, L500.2500, L100.9950, L503.6150 ####[facility] [address] [place], [address] Glucose [Mass/Vol] 96 mg/dL Normal 74-106 [facility] Comment on above: Order Comment: Order Date: 06/21/24Order Info: 666-05 - BMPOrder Info: [id number] - FEOrder Info: [id number] - OSCAR Performed By: #### L 100.0500, L503.6550, L500.2500, L100.9950, L503.6150 ####[facility] [address] [place], [address] Potassium [Moles/Vol] 4.5 mmol/L Normal 3.5-5.1 [facility] Comment on above: Order Comment: Order Date: 06/21/24Order Info: 666-05 - BMPOrder Info: [id number] FEOrder Info: [id number] - OSCAR Performed By: #### L 100.0500, L503.6550, L500.2500, L100.9950, L503.6150 ####[facility] [address] [place], [address] Sodium [Moles/Vol] 138 mmol/L Normal 136-145 [facility] Comment on above: Order Comment: Order Date: 06/21/24Order Info: [id number]- - BMPOrder Info: [id number] FEOrder Info: [id number] - OSCAR Performed By: #### L 100.0500, L503.6550, L500.2500, L100.9950, L503.6150 ####[facility] [address] [place], [address] Urea nitrogen [Mass/Vol] 31 mg/dL High 7-18 [facility] Comment on above: Order Comment: Order Date: 06/21/24Order Info: [id number] - BMPOrder Info: [id number] - FEOrder Info: [id number] - OSCAR Performed By: #### L 100.0500, L503.6550, L500.2500, L100.9950, L503.6150 ####[facility] [address] [place], [address] BUN Normal 7-18 [facility] Comment on above: Result Comment: Canc elled via OM: Order cancelled - Patient discharged Performed By: #### L 500.2500, L100.0100 ####[facility] [address] [place], [address] BUN/CRE Normal 10-20 [facility] Comment on above: Result Comment: Canc elled via OM: Order cancelled - Patient discharged Performed By: #### L 500.2500, L100.0100 ####[facility] [address] [place], [address] CA,Total Normal 8.5-10.1 [facility] Comment on above: Result Comment: Canc elled via OM: Order cancelled - Patient discharged Performed By: #### L 500.2500, L100.0100 ####[facility] [address] [place], [address] CL Normal 98-107 [facility] Comment on above: Result Comment: Canc elled via OM: Order cancelled - Patient discharged Performed By: #### L 500.2500, L100.0100 ####[facility] [address] [place], [address] CO2 Normal 21.0-32.0 [facility] Comment on above: Result Comment: Canc elled via OM: Order cancelled - Patient discharged Performed By: #### L 500.2500, L100.0100 ####[facility] [address] [place], [address] CREAT,SERUM Normal 0.55-1.02 [facility] Comment on above: Result Comment: Canc elled via OM: Order cancelled - Patient discharged Performed By: #### L 500.2500, L100.0100 ####[facility] [address] [place], [address] EST GFR Normal >60 [facility] Comment on above: Result Comment: Canc elled via OM: Order cancelled - Patient discharged Performed By: #### L 500.2500, L100.0100 ####[facility] [address] [place], [address] EST GFR - AA Normal >60 [facility] Comment on above: Result Comment: Canc elled via OM: Order cancelled - Patient discharged Performed By: #### L 500.2500, L100.0100 ####[facility] [address] [place], [address] GAP Normal 5-15 [facility] Comment on above: Result Comment: Canc elled via OM: Order cancelled - Patient discharged Performed By: #### L 500.2500, L100.0100 ####[facility] [address] [place], [address] GLU Normal 74-106 [facility] Comment on above: Result Comment: Canc elled via OM: Order cancelled - Patient discharged Performed By: #### L 500.2500, L100.0100 ####[facility] [address] [place], [address] Potassium Normal 3.5-5.1 [facility] Comment on above: Result Comment: Canc elled via OM: Order cancelled - Patient discharged Performed By: #### L 500.2500, L100.0100 ####[facility] [address] [place], [address] Basic Metabolic Profile (BMP) Normal 136-145 [facility] Comment on above: Result Comment: Canc elled via OM: Order cancelled - Patient discharged Performed By: #### L 500.2500, L100.0100 ####[facility] [address] [place], [address] Blood urea nitrogen (BUN)/cr eatinine ratioOrdered By: Bridget Swenson on 06-21-2024 Blood urea nitrogen (BUN)/creatinine ratio 29.8 RATIO High 10-20 [facility] CBC W/Diff, Automatedon 06-12 Absolute Neut Normal 2.0-7.7 [facility] Comment on above: Result Comment: Canc elled via OM: Order cancelled - Patient discharged Performed By: #### L 500.2500, L100.0100 ####[facility] [address] [place], [address] HCT Normal 37-47 [facility] Comment on above: Result Comment: Canc elled via OM: Order cancelled - Patient discharged Performed By: #### L 500.2500, L100.0100 ####[facility] [address] [place], [address] HGB Normal 12.0-15.0 [facility] Comment on above: Result Comment: Canc elled via OM: Order cancelled - Patient discharged Performed By: #### L 500.2500, L100.0100 ####[facility] [address] [place], [address] MCH Normal 27.0-32.0 [facility] Comment on above: Result Comment: Canc elled via OM: Order cancelled - Patient discharged Performed By: #### L 500.2500, L100.0100 ####[facility] [address] [place], [address] MCHC Normal 32-36 [facility] Comment on above: Result Comment: Canc elled via OM: Order cancelled - Patient discharged Performed By: #### L 500.2500, L100.0100 ####[facility] [address] [place], [address] MCV Normal 81-99 [facility] Comment on above: Result Comment: Canc elled via OM: Order cancelled - Patient discharged Performed By: #### L 500.2500, L100.0100 ####[facility] [address] [place], [address] NEUT% Normal 47-70 [facility] Comment on above: Result Comment: Canc elled via OM: Order cancelled - Patient discharged Performed By: #### L 500.2500, L100.0100 ####[facility] [address] [place], [address] PLT Normal 150-450 [facility] Comment on above: Result Comment: Canc elled via OM: Order cancelled - Patient discharged Performed By: #### L 500.2500, L100.0100 ####[facility] [address] [place], [address] RBC Normal 4.2-5.4 [facility] Comment on above: Result Comment: Canc elled via OM: Order cancelled - Patient discharged Performed By: #### L 500.2500, L100.0100 ####[facility] [address] [place], [address] RDW CV Normal 11.6-14.6 [facility] Comment on above: Result Comment: Canc elled via OM: Order cancelled - Patient discharged Performed By: #### L 500.2500, L100.0100 ####[facility] [address] [place], [address] RDW SD Normal 35.1-43.9 [facility] Comment on above: Result Comment: Canc elled via OM: Order cancelled - Patient discharged Performed By: #### L 500.2500, L100.0100 ####[facility] [address] [place], [address] WBC Normal 4.4-11.0 [facility] Comment on above: Result Comment: Canc elled via OM: Order cancelled - Patient discharged Performed By: #### L 500.2500, L100.0100 ####[facility] [address] [place], [address] CBC-Complete Blood Cnt No Di ffon 06-21-2024 Erythrocyte distribution width (RBC) [Ratio] 15.7 % High 11.6-14.6 [facility] Comment on above: Order Comment: Order Date: 06/21/24Order Info: [id number] - CBCOrder Info: [id number] - RETIC Performed By: #### L 100.0500, L503.6550, L500.2500, L100.9950, L503.6150 ####[facility] [address] [place], [address] Hematocrit (Bld) [Volume fraction] 31.8 % Low 37-47 [facility] Comment on above: Order Comment: Order Date: 06/21/24Order Info: [id number] - CBCOrder Info: [id number] - RETIC Performed By: #### L 100.0500, L503.6550, L500.2500, L100.9950, L503.6150 ####[facility] [address] [place], [address] Hemoglobin (Bld) [Mass/Vol] 10.0 g/dL Low 12.0-15.0 [facility] Comment on above: Order Comment: Order Date: 06/21/24Order Info: [id number] - CBCOrder Info: [id number] - RETIC Performed By: #### L 100.0500, L503.6550, L500.2500, L100.9950, L503.6150 ####[facility] [address] [place], [address] MCH (RBC) [Entitic mass] 29.9 pg Normal 27.0-32.0 [facility] Comment on above: Order Comment: Order Date: 06/21/24Order Info: [id number] - CBCOrder Info: [id number] - RETIC Performed By: #### L 100.0500, L503.6550, L500.2500, L100.9950, L503.6150 ####[facility] [address] [place], [address] MCHC (RBC) [Mass/Vol] 31.4 g/dL Low 32-36 [facility] Comment on above: Order Comment: Order Date: 06/21/24Order Info: [id number] - CBCOrder Info: [id number] - RETIC Performed By: #### L 100.0500, L503.6550, L500.2500, L100.9950, L503.6150 ####[facility] [address] [place], [address] MCV (RBC) [Entitic vol] 94.9 fL Normal 81-99 [facility] Comment on above: Order Comment: Order Date: 06/21/24Order Info: [id number] - CBCOrder Info: [id number] - RETIC Performed By: #### L 100.0500, L503.6550, L500.2500, L100.9950, L503.6150 ####[facility] [address] [place], [address] Platelet mean volume (Bld) [Entitic vol] 9.6 fL Normal 6.2-12.0 [facility] Comment on above: Order Comment: Order Date: 06/21/24Order Info: [id number] - CBCOrder Info: [id number] - RETIC Performed By: #### L 100.0500, L503.6550, L500.2500, L100.9950, L503.6150 ####[facility] [address] [place], [address] Platelets (Bld) [#/Vol] 328 10*3/uL Normal 150-450 [facility] Comment on above: Order Comment: Order Date: 06/21/24Order Info: [id number] - CBCOrder Info: [id number] - RETIC Performed By: #### L 100.0500, L503.6550, L500.2500, L100.9950, L503.6150 ####[facility] [address] [place], [address] RBC (Bld) [#/Vol] 3.35 10*6/uL Low 4.2-5.4 [facility] Comment on above: Order Comment: Order Date: 06/21/24Order Info: [id number] - CBCOrder Info: [id number] - RETIC Performed By: #### L 100.0500, L503.6550, L500.2500, L100.9950, L503.6150 ####[facility] [address] [place], [address] RDW SD 54.6 fl High 35.1-43.9 [facility] Comment on above: Order Comment: Order Date: 06/21/24Order Info: [id number] - CBCOrder Info: [id number] - RETIC Performed By: #### L 100.0500, L503.6550, L500.2500, L100.9950, L503.6150 ####[facility] [address] [place], [address] WBC (Bld) [#/Vol] 6.1 10*3/uL Normal 4.4-11.0 [facility] Comment on above: Order Comment: Order Date: 06/21/24Order Info: [id number] - CBCOrder Info: [id number] - RETIC Performed By: #### L 100.0500, L503.6550, L500.2500, L100.9950, L503.6150 ####[facility] [address] [place], [address] Calcium [Mass/Vol]Ordered By : Bridget Swenson on 06-21-2024 Serum or plasma calcium measurement (mass/volume) 9.6 mg/dL 8.5-10.1 [facility] Carbon dioxide measurementOr dered By: Bridget Swenson on 06-21-2024 CO2 [Moles/Vol] 30.0 mmol/L 21.0-32.0 [facility] Carbon dioxide measurement 30.0 mmol/L 21.0-32.0 [facility] Chloride measurementOrdered By: Bridget Swenson on 06-21-2024 Chloride [Moles/Vol] 100 mmol/L 98-107 [facility] Chloride measurement 100 mmol/L 98-107 [facility] Creatinine [Mass/Vol]Ordered By: Bridget Swenson on 06-21-2024 Serum or plasma creatinine measurement (mass/volume) 1.04 mg/dL High 0.55-1.02 [facility] Erythrocyte distribution wid th (RBC) [Ratio]Ordered By: Bridget Swenson on 06-21-2024 Erythrocyte distribution width ratio 15.7 % High 11.6-14.6 [facility] Erythrocyte distribution wid th ratioOrdered By: Bridget Swenson on 06-21-2024 Erythrocyte distribution width (RBC) [Ratio] 15.7 % High 11.6-14.6 [facility] Erythrocyte distribution wid th standard deviationOrdered By: Bridget Swenson on 06-21-2024 Erythrocyte distribution width (RBC) [Ratio] 54.6 fl High 35.1-43.9 [facility] Erythrocyte distribution width standard deviation 54.6 fl High 35.1-43.9 [facility] Estimated glomerular filtrat ion rate (GFR) AmericanOrdered By: Bridget Swenson on 06-21-2024 Estimated glomerular filtration rate (GFR) 64 mL/min >60 [facility] Ferritinon 06-21-2024 Ferritin [Mass/Vol] 427 ng/mL High 8-252 [facility] Comment on above: Order Comment: Order Date: 06/21/24Order Info: [id number] - BMPOrder Info: [id number] - FEOrder Info: [id number] - OSCAR Performed By: #### L 100.0500, L503.6550, L500.2500, L100.9950, L503.6150 ####[facility] [address] [place], [address] Ferritin measurementOrdered By: Bridget Swenson on 06-21-2024 Ferritin measurement 427 ng/mL High 8-252 [facility] Glomerular filtration rate ( GFR) estimationOrdered By: Bridget Swenson on 06-21-2024 GFR/1.73 sq M.predicted among non-blacks MDRD (S/P/Bld) [Vol rate/Area] 53 mL/min/{1.73_m2} Low >60 [facility] Glomerular filtration rate (GFR) estimation 53 mL/min Low >60 [facility] Glucose measurementOrdered B y: Bridget Swenson on 06-21-2024 Glucose [Mass/Vol] 96 mg/dL 74-106 [facility] Glucose measurement 96 mg/dL 74-106 [facility] Hematocrit Auto (Bld) [Volum e fraction]Ordered By: Bridget Swenson on 06-21-2024 Hematocrit (Bld) [Volume fraction] 31.8 % Low 37-47 [facility] Automated blood hematocrit (percentage) 31.8 % Low 37-47 [facility] Hemoglobin (Reticulocytes) [ Entitic mass]Ordered By: Bridget Swenson on 06-21-2024 Reticulocyte hemoglobin equivalent (RET-He) measurement 34.5 pg 30-35 [facility] Hemoglobin measurementOrdere d By: Bridget Swenson on 06-21-2024 Hemoglobin (Bld) [Mass/Vol] 10.0 g/dL Low 12.0-15.0 [facility] Hemoglobin measurement 10.0 g/dL Low 12.0-15.0 [facility] Immature reticulocyte fracti onOrdered By: Bridget Swenson on 06-21-2024 Immature reticulocyte fraction 7.00 % 3.00-15.90 [facility] Ironon 06-21-2024 Iron [Mass/Vol] 67 ug/dL Normal 50-170 [facility] Comment on above: Order Comment: Order Date: 06/21/24Order Info: [id number] - BMPOrder Info: [id number] - FEOrder Info: [id number] - OSCAR Performed By: #### L 100.0500, L503.6550, L500.2500, L100.9950, L503.6150 ####[facility] [address] [place], [place], [address] Iron (Unsp spec) [Mass/Mass] Ordered By: Bridget Swenson on 06-21-2024 Iron measurement (mass/mass) 67 ug/dL 50-170 [facility] Iron measurement (mass/mass) Ordered By: Bridget Swenson on 06-21-2024 Iron (Unsp spec) [Mass/Mass] 67 ug/dL 50-170 [facility] MCV (RBC) [Entitic vol]Order ed By: Bridget Swenson on 06-21-2024 MCV (mean corpuscular volume) determination 94.9 fL 81-99 [facility] MCV (mean corpuscular volume ) determinationOrdered By: Bridget Swenson on 06-21-2024 MCV (RBC) [Entitic vol] 94.9 fL 81-99 [facility] Mean corpuscular hemoglobin (MCH) determinationOrdered By: Bridget Swenson on 06-21-2024 MCH (RBC) [Entitic mass] 29.9 pg 27.0-32.0 [facility] Mean corpuscular hemoglobin (MCH) determination 29.9 pg 27.0-32.0 [facility] Mean corpuscular hemoglobin concentration (MCHC) determinationOrdered By: Bridget Swenson on 06-21-2024 Mean corpuscular hemoglobin concentration (MCHC) determination 31.4 g/dL Low 32-36 [facility] Mean platelet volume determi nationOrdered By: Bridget Swenson on 06-21-2024 Mean platelet volume determination 9.6 fl 6.2-12.0 [facility] Platelet countOrdered By: Zack Swenson on 06-21-2024 Platelets (Bld) [#/Vol] 328 10*3/uL 150-450 [facility] Platelet count 328 K/mm3 150-450 [facility] Potassium measurementOrdered By: Bridget Swenson on 06-21-2024 Potassium [Moles/Vol] 4.5 mmol/L 3.5-5.1 [facility] Potassium measurement 4.5 mmol/L 3.5-5.1 [facility] RBC Auto (Bld) [#/Vol]Ordere d By: Bridget Swenson on 06-21-2024 RBC (Bld) [#/Vol] 3.35 10*6/uL Low 4.2-5.4 [facility] Automated blood erythrocyte count 3.35 M/mm3 Low 4.2-5.4 [facility] Retic Panelon 06-21-2024 IM RET FRACTION 7.00 Normal 3.00-15.90 [facility] Comment on above: Order Comment: Order Date: 06/21/24Order Info: [id number] - CBCOrder Info: [id number] - RETIC Performed By: #### L 100.0500, L503.6550, L500.2500, L100.9950, L503.6150 ####[facility] [address] [place], [place], [id number] RET-HE 34.5 pg Normal 30-35 [facility] Comment on above: Order Comment: Order Date: 06/21/24Order Info: [id number] - CBCOrder Info: [id number] - RETIC Performed By: #### L 100.0500, L503.6550, L500.2500, L100.9950, L503.6150 ####[facility] [address] [place], [address] Retic Count 1.34 Normal 0.5-1.5 [facility] Comment on above: Order Comment: Order Date: 06/21/24Order Info: [id number] - CBCOrder Info: [id number] - RETIC Performed By: #### L 100.0500, L503.6550, L500.2500, L100.9950, L503.6150 ####[facility] [address] [place], [address] Reticulocyte hemoglobin equi valent (RET-He) measurementOrdered By: Bridget Swenson on 06-21-2024 Hemoglobin (Reticulocytes) [Entitic mass] 34.5 pg 30-35 [facility] Reticulocytes Auto (Bld) [#/ Vol]Ordered By: Bridget Swenson on 06-21-2024 Reticulocytes/100 RBC (Bld) 1.34 % 0.5-1.5 [facility] Automated blood reticulocytes count (number/volume) 1.34 % 0.5-1.5 [facility] Serum anion gap measurementO rdered By: Bridget Swenson on 06-21-2024 Serum anion gap measurement 8 5-15 [facility] Serum or plasma calcium manuel urement (mass/volume)Ordered By: Bridget Swenson on 06-21-2024 Calcium [Mass/Vol] 9.6 mg/dL 8.5-10.1 [facility] Serum or plasma creatinine m easurement (mass/volume)Ordered By: Bridget Swenson on 06-21-2024 Creatinine [Mass/Vol] 1.04 mg/dL High 0.55-1.02 [facility] Serum or plasma urea nitroge n measurement (mass/volume)Ordered By: Bridget Swenson on 06-21-2024 Urea nitrogen [Mass/Vol] 31 mg/dL High 7-18 [facility] Sodium levelOrdered By: Zenaida Swenson on 06-21-2024 Sodium [Moles/Vol] 138 mmol/L 136-145 [facility] Sodium level 138 mmol/L 136-145 [facility] Urea nitrogen [Mass/Vol]Orde red By: Bridget Swenson on 06-21-2024 Serum or plasma urea nitrogen measurement (mass/volume) 31 mg/dL High 7-18 [facility] White blood cell (WBC) count Ordered By: Bridget Swenson on 06-21-2024 WBC (Bld) [#/Vol] 6.1 10*3/uL 4.4-11.0 [facility] White blood cell (WBC) count 6.1 K/mm3 4.4-11.0 [facility] CNOVon 06-15-2024 CNOV Office Visit (CVAKPO) JOYCE SOLOMON ([id number]) 1935 F CHT Date Time Provider Department 06/15/24 11:00 AM JESSA RETANA During your visit today, we recorded the following information about you: Pulse Blood pressure Weight Height 84/minute 171/44 73.5 kg 1.524 m Jessa Retana APRN.HUMAN RESOURCES BENEFITS MANAGER 06/29/2024 2:01 AM Signed [facility] Established Visit PCP: Bridget Swenson ([facility]) [address] [place] [id number] [facility] Joyce Solomon is a 89 year old female who presents for neurologic evaluation following recent hospitalization for acute SAH (05/11/2024-05/16/2024 ). Stroke Event Information Jatin Solomon is a 89 yo F w/ PMH HTN, HLD, pAF on warfarin, NEL on CPAP, osteoporosis, secondary hypothyroidism transferred from [facility] May 11, 2024 for ICH monitoring. [...] started on nicardipine and transferred to [facility] for continuation of care. 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 Notes residual slurred speech, left side weakness, [...] administration at her facility CTH completed at [facility] 06/14/24 PAST MEDICAL HISTORY Diagnosis Date [...] (more content not included)... Normal [facility] Absolute lymphocyte countOrd ered By: Aleks Marshall on 06-14-2024 Lymphocytes Auto (Unsp spec) [#/Vol] 1.51 10*3/uL 0.83-4.51 [facility] Absolute neutrophil countOrd ered By: Aleks Marshall on 06-14-2024 Absolute neutrophil count 3.0 X10^3/uL 2.0-7.7 [facility] Automated lymphocyte count a s percentage of total leukocytesOrdered By: Aleks Marshall on 06-14-2024 Lymphocytes/100 WBC Auto (Unsp spec) 26.8 % 19-41 [facility] Basic Metabolic Profile (BMP )on 06-14-2024 BUN/CRE 36.6 RATIO High 10-20 [facility] Comment on above: Performed By: #### L 100.0100, L500.2500 ####[facility] [address] [place], [place], [id number] [place],Total 8.9 mg/dL Normal 8.5-10.1 [facility] Comment on above: Performed By: #### L 100.0100, L500.2500 ####[facility] [address] [place], [address] Chloride [Moles/Vol] 101 mmol/L Normal 98-107 [facility] Comment on above: Performed By: #### L 100.0100, L500.2500 ####[facility] [address] [place], [address] CO2 [Moles/Vol] 24.0 mmol/L Normal 21.0-32.0 [facility] Comment on above: Performed By: #### L 100.0100, L500.2500 ####[facility] [address] [place], [address] Creatinine [Mass/Vol] 0.82 mg/dL Normal 0.55-1.02 [facility] Comment on above: Result Comment: The validity of the calculated GFR GFRAA in patients over70 years has not been determined. Clinical correlation isessential. Performed By: #### L 100.0100, L500.2500 ####[facility] [address] [place], [address] ECRCL 43.24 ml/min Normal [facility] Comment on above: Performed By: #### L 100.0100, L500.2500 ####[facility] [address] [place], [address] EST GFR - AA 85 mL/min Normal >60 [facility] Comment on above: Result Comment: Afri can Ugandan GFR Calc Performed By: #### L 100.0100, L500.2500 ####[facility] [address] [place], [address] GAP 7 Normal 5-15 [facility] Comment on above: Performed By: #### L 100.0100, L500.2500 ####[facility] [address] [place], [address] GFR/1.73 sq M.predicted among non-blacks MDRD (S/P/Bld) [Vol rate/Area] 70 mL/min/{1.73_m2} Normal >60 [facility] Comment on above: Result Comment: Non- GFR Calc Performed By: #### L 100.0100, L500.2500 ####[facility] [address] [place], [address] Glucose [Mass/Vol] 95 mg/dL Normal 74-106 [facility] Comment on above: Performed By: #### L 100.0100, L500.2500 ####[facility] [address] [place], [address] Potassium [Moles/Vol] 4.6 mmol/L Normal 3.5-5.1 [facility] Comment on above: Performed By: #### L 100.0100, L500.2500 ####[facility] [address] [place], [address] Sodium [Moles/Vol] 132 mmol/L Low 136-145 [facility] Comment on above: Performed By: #### L 100.0100, L500.2500 ####[facility] [address] [place], [address] Urea nitrogen [Mass/Vol] 30 mg/dL High 7-18 [facility] Comment on above: Performed By: #### L 100.0100, L500.2500 ####[facility] [address] [place], [address] Basophil percentageOrdered B y: Aleks Marshall on 06-14-2024 Basophils/100 WBC (Bld) 0.9 % 0-1 [facility] Basophil percentage 0.9 % 0-1 [facility] Blood urea nitrogen (BUN)/cr eatinine ratioOrdered By: Aleks Marshall on 06-14-2024 Blood urea nitrogen (BUN)/creatinine ratio 36.6 RATIO High 10-20 [facility] Brain/Head without Contrasto n 06-14-2024 Brain/Head without Contrast Normal [facility] CBC W/Diff, Automatedon Absolute Lymph 1.51 X10 3/uL Normal 0.83-4.51 [facility] Comment on above: Performed By: #### L 100.0100, L500.2500 ####[facility] [address] [place], [address] Absolute Neut 3.0 X10 3/uL Normal 2.0-7.7 [facility] Comment on above: Performed By: #### L 100.0100, L500.2500 ####[facility] [address] [place], [address] Basophils/100 WBC (Bld) 0.9 % Normal 0-1 [facility] Comment on above: Performed By: #### L 100.0100, L500.2500 ####[facility] [address] [place], [address] Eosinophils/100 WBC (Bld) 4.8 % Normal 0-5 [facility] Comment on above: Performed By: #### L 100.0100, L500.2500 ####[facility] [address] [place], [address] Erythrocyte distribution width (RBC) [Ratio] 16.0 % High 11.6-14.6 [facility] Comment on above: Performed By: #### L 100.0100, L500.2500 ####[facility] [address] [place], [address] Hematocrit (Bld) [Volume fraction] 29.7 % Low 37-47 [facility] Comment on above: Performed By: #### L 100.0100, L500.2500 ####[facility] [address] [place], [address] Hemoglobin (Bld) [Mass/Vol] 9.4 g/dL Low 12.0-15.0 [facility] Comment on above: Performed By: #### L 100.0100, L500.2500 ####[facility] [address] [place], [address] IG% 1.200 High 0.0-0.9 [facility] Comment on above: Result Comment: IG% - Immature Granulocytes (promyelocytes, myelocytes andmetamyelocytes) > 1% indicates that a LEFT SHIFT is Present. Performed By: #### L 100.0100, L500.2500 ####[facility] [address] [place], [address] Lymphocytes/100 WBC (Bld) 26.8 % Normal 19-41 [facility] Comment on above: Performed By: #### L 100.0100, L500.2500 ####[facility] [address] [place], [address] MCH (RBC) [Entitic mass] 29.8 pg Normal 27.0-32.0 [facility] Comment on above: Performed By: #### L 100.0100, L500.2500 ####[facility] [address] [place], [address] MCHC (RBC) [Mass/Vol] 31.6 g/dL Low 32-36 [facility] Comment on above: Performed By: #### L 100.0100, L500.2500 ####[facility] [address] [place], [address] MCV (RBC) [Entitic vol] 94.3 fL Normal 81-99 [facility] Comment on above: Performed By: #### L 100.0100, L500.2500 ####[facility] [address] [place], [address] Monocytes/100 WBC (Bld) 12.3 % High 0-10 [facility] Comment on above: Performed By: #### L 100.0100, L500.2500 ####[facility] [address] [place], [address] Neutrophils/100 WBC (Bld) 54.0 % Normal 47-70 [facility] Comment on above: Performed By: #### L 100.0100, L500.2500 ####[facility] [address] [place], [address] Nucleated RBC (Bld) [#/Vol] 0 10*3/uL Normal 0-5 [facility] Comment on above: Performed By: #### L 100.0100, L500.2500 ####[facility] [address] [place], [address] Platelet mean volume (Bld) [Entitic vol] 9.3 fL Normal 6.2-12.0 [facility] Comment on above: Performed By: #### L 100.0100, L500.2500 ####[facility] [address] [place], [address] Platelets (Bld) [#/Vol] 308 10*3/uL Normal 150-450 [facility] Comment on above: Performed By: #### L 100.0100, L500.2500 ####[facility] [address] [place], [address] RBC (Bld) [#/Vol] 3.15 10*6/uL Low 4.2-5.4 [facility] Comment on above: Performed By: #### L 100.0100, L500.2500 ####[facility] [address] [place], [address] RDW SD 55.8 fl High 35.1-43.9 [facility] Comment on above: Performed By: #### L 100.0100, L500.2500 ####[facility] [address] [place], [address] WBC (Bld) [#/Vol] 5.6 10*3/uL Normal 4.4-11.0 [facility] Comment on above: Performed By: #### L 100.0100, L500.2500 ####[facility] [address] [place], [address] Calcium [Mass/Vol]Ordered By : Aleks Marshall on 06-14-2024 Serum or plasma calcium measurement (mass/volume) 8.9 mg/dL 8.5-10.1 [facility] Carbon dioxide measurementOr dered By: Aleks Marshall on 06-14-2024 CO2 [Moles/Vol] 24.0 mmol/L 21.0-32.0 [facility] Carbon dioxide measurement 24.0 mmol/L 21.0-32.0 [facility] Chloride measurementOrdered By: Aleks Marshall on 06-14-2024 Chloride [Moles/Vol] 101 mmol/L 98-107 [facility] Chloride measurement 101 mmol/L 98-107 [facility] Creatinine [Mass/Vol]Ordered By: Aleks Marshall 06-14-2024 Serum or plasma creatinine measurement (mass/volume) 0.82 mg/dL 0.55-1.02 [facility] Eosinophil percentageOrdered By: Aleks Marshall 06-14-2024 Eosinophils/100 WBC (Bld) 4.8 % 0-5 [facility] Eosinophil percentage 4.8 % 0-5 [facility] Erythrocyte distribution wid th (RBC) [Ratio]Ordered By: Aleks Marshall 06-14-2024 Erythrocyte distribution width ratio 16.0 % High 11.6-14.6 [facility] Erythrocyte distribution wid th ratioOrdered By: Aleks Marshall 06-14-2024 Erythrocyte distribution width (RBC) [Ratio] 16.0 % High 11.6-14.6 [facility] Erythrocyte distribution wid th standard deviationOrdered By: Aleks Marshall 06-14-2024 Erythrocyte distribution width (RBC) [Ratio] 55.8 fl High 35.1-43.9 [facility] Erythrocyte distribution width standard deviation 55.8 fl High 35.1-43.9 [facility] Estimated glomerular filtrat ion rate (GFR) AmericanOrdered By: Aleks Marshall on 06-14-2024 Estimated glomerular filtration rate (GFR) 85 mL/min >60 [facility] Estimation of creatinine marye llen aranceOrdered By: Aleks Marshall on 06-14-2024 Estimation of creatinine clearance 43.24 ml/min [facility] Glomerular filtration rate ( GFR) estimationOrdered By: Aleks Marshall on 06-14-2024 GFR/1.73 sq M.predicted among non-blacks MDRD (S/P/Bld) [Vol rate/Area] 70 mL/min/{1.73_m2} >60 [facility] Glomerular filtration rate (GFR) estimation 70 mL/min >60 [facility] Glucose measurementOrdered B y: Aleks Marshall on 06-14-2024 Glucose [Mass/Vol] 95 mg/dL 74-106 [facility] Glucose measurement 95 mg/dL 74-106 [facility] Hematocrit Auto (Bld) [Volum e fraction]Ordered By: Aleks Marshall on 06-14-2024 Hematocrit (Bld) [Volume fraction] 29.7 % Low 37-47 [facility] Automated blood hematocrit (percentage) 29.7 % Low 37-47 [facility] Hemoglobin measurementOrdere d By: Aleks Marshall on 06-14-2024 Hemoglobin (Bld) [Mass/Vol] 9.4 g/dL Low 12.0-15.0 [facility] Hemoglobin measurement 9.4 g/dL Low 12.0-15.0 [facility] Immature granulocytes/100 WB C Auto (Bld)Ordered By: Aleks Marshall on 06-14-2024 Immature granulocytes/100 WBC (Bld) 1.200 % High 0.0-0.9 [facility] Automated immature granulocyte percentage 1.200 % High 0.0-0.9 [facility] Lymphocytes Auto (Unsp spec) [#/Vol]Ordered By: Aleks Marshall on 06-14-2024 Absolute lymphocyte count 1.51 X10^3/uL 0.83-4.51 [facility] Lymphocytes/100 WBC Auto (Un sp spec)Ordered By: Aleks Marshall on 06-14-2024 Automated lymphocyte count as percentage of total leukocytes 26.8 % 19-41 [facility] MCV (RBC) [Entitic vol]Order ed By: Aleks Marshall on 06-14-2024 MCV (mean corpuscular volume) determination 94.3 fL 81-99 [facility] MCV (mean corpuscular volume ) determinationOrdered By: Aleks Marshall on 06-14-2024 MCV (RBC) [Entitic vol] 94.3 fL 81-99 [facility] Mean corpuscular hemoglobin (MCH) determinationOrdered By: Aleks Marshall on 06-14-2024 MCH (RBC) [Entitic mass] 29.8 pg 27.0-32.0 [facility] Mean corpuscular hemoglobin (MCH) determination 29.8 pg 27.0-32.0 [facility] Mean corpuscular hemoglobin concentration (MCHC) determinationOrdered By: Aleks Marshall on 06-14-2024 Mean corpuscular hemoglobin concentration (MCHC) determination 31.6 g/dL Low 32-36 [facility] Mean platelet volume determi nationOrdered By: Aleks Marshall on 06-14-2024 Mean platelet volume determination 9.3 fl 6.2-12.0 [facility] Monocyte percentageOrdered B y: Aleks Marshall on 06-14-2024 Monocytes/100 WBC (Bld) 12.3 % High 0-10 [facility] Monocyte percentage 12.3 % High 0-10 [facility] Neutrophil percentageOrdered By: Aleks Marshall on 06-14-2024 Neutrophils/100 WBC (Bld) 54.0 % 47-70 [facility] Neutrophil percentage 54.0 % 47-70 [facility] Nucleated red blood cell per centageOrdered By: Aleks Marshall on 06-14-2024 Nucleated red blood cell percentage 0 % 0-5 [facility] Platelet countOrdered By: Yobany Marshall on 06-14-2024 Platelets (Bld) [#/Vol] 308 10*3/uL 150-450 [facility] Platelet count 308 K/mm3 150-450 [facility] Potassium measurementOrdered By: Aleks Marshall on 06-14-2024 Potassium [Moles/Vol] 4.6 mmol/L 3.5-5.1 [facility] Potassium measurement 4.6 mmol/L 3.5-5.1 [facility] RBC Auto (Bld) [#/Vol]Ordere d By: Aleks Marshall on 06-14-2024 RBC (Bld) [#/Vol] 3.15 10*6/uL Low 4.2-5.4 [facility] Automated blood erythrocyte count 3.15 M/mm3 Low 4.2-5.4 [facility] Serum anion gap measurementO rdered By: Aleks Marshall on 06-14-2024 Serum anion gap measurement 7 5-15 [facility] Serum or plasma calcium manuel urement (mass/volume)Ordered By: Aleks Marshall on 06-14-2024 Calcium [Mass/Vol] 8.9 mg/dL 8.5-10.1 [facility] Serum or plasma creatinine m easurement (mass/volume)Ordered By: Aleks Marshall on 06-14-2024 Creatinine [Mass/Vol] 0.82 mg/dL 0.55-1.02 [facility] Serum or plasma urea nitroge n measurement (mass/volume)Ordered By: Aleks Marshall on 06-14-2024 Urea nitrogen [Mass/Vol] 30 mg/dL High 11-26 [facility] Sodium levelOrdered By: Aleks Marshall on 06-14-2024 Sodium [Moles/Vol] 132 mmol/L Low 136-145 [facility] Sodium level 132 mmol/L Low 136-145 [facility] Urea nitrogen [Mass/Vol]Orde red By: Aleks Marshall on 06-14-2024 Serum or plasma urea nitrogen measurement (mass/volume) 30 mg/dL High 11-26 [facility] White blood cell (WBC) count Ordered By: Aleks Marshall on 06-14-2024 WBC (Bld) [#/Vol] 5.6 10*3/uL 4.4-11.0 [facility] White blood cell (WBC) count 5.6 K/mm3 4.4-11.0 [facility] Basic Metabolic Profile (BMP )on 06-07-2024 BUN/CRE 26.3 RATIO High 10-20 [facility] Comment on above: Performed By: #### L 100.0100, L500.2500 ####[facility] [address] [place], [address] CA,Total 8.7 mg/dL Normal 8.5-10.1 [facility] Comment on above: Performed By: #### L 100.0100, L500.2500 ####[facility] [address] [place], [address] Chloride [Moles/Vol] 98 mmol/L Normal 98-107 [facility] Comment on above: Performed By: #### L 100.0100, L500.2500 ####[facility] [address] [place], [address] CO2 [Moles/Vol] 26.0 mmol/L Normal 21.0-32.0 [facility] Comment on above: Performed By: #### L 100.0100, L500.2500 ####[facility] [address] [place], [address] Creatinine [Mass/Vol] 0.80 mg/dL Normal 0.55-1.02 [facility] Comment on above: Result Comment: The validity of the calculated GFR GFRAA in patients over70 years has not been determined. Clinical correlation isessential. Performed By: #### L 100.0100, L500.2500 ####[facility] [address] [place], [address] ECRCL 44.76 ml/min Normal [facility] Comment on above: Performed By: #### L 100.0100, L500.2500 ####[facility] [address] [place], [address] EST GFR - AA 87 mL/min Normal >60 [facility] Comment on above: Result Comment: Afri can Ug[place] GFR Calc Performed By: #### L 100.0100, L500.2500 ####[facility] [address] [place], [address] GAP 7 Normal 5-15 [facility] Comment on above: Performed By: #### L 100.0100, L500.2500 ####[facility] [address] [place], [address] GFR/1.73 sq M.predicted among non-blacks MDRD (S/P/Bld) [Vol rate/Area] 72 mL/min/{1.73_m2} Normal >60 [facility] Comment on above: Result Comment: Non- GFR Calc Performed By: #### L 100.0100, L500.2500 ####[facility] [address] [place], [address] Glucose [Mass/Vol] 96 mg/dL Normal 74-106 [facility] Comment on above: Performed By: #### L 100.0100, L500.2500 ####[facility] [address] [place], [address] Potassium [Moles/Vol] 4.3 mmol/L Normal 3.5-5.1 [facility] Comment on above: Performed By: #### L 100.0100, L500.2500 ####[facility] [address] [place], [address] Sodium [Moles/Vol] 132 mmol/L Low 136-145 [facility] Comment on above: Performed By: #### L 100.0100, L500.2500 ####[facility] [address] [place], [address] Urea nitrogen [Mass/Vol] 21 mg/dL High 7-18 [facility] Comment on above: Performed By: #### L 100.0100, L500.2500 ####[facility] [address] [place], [address] CBC W/Diff, Automatedon 05-13 Absolute Lymph 1.44 X10 3/uL Normal 0.83-4.51 [facility] Comment on above: Performed By: #### L 100.0100, L500.2500 ####[facility] [address] [place], [address] Absolute Neut 4.2 X10 3/uL Normal 2.0-7.7 [facility] Comment on above: Performed By: #### L 100.0100, L500.2500 ####[place] [facility] [address] [place], [address] Basophils/100 WBC (Bld) 1.1 % High 0-1 [facility] Comment on above: Performed By: #### L 100.0100, L500.2500 ####[facility] [address] [place], [address] Eosinophils/100 WBC (Bld) 2.9 % Normal 0-5 [facility] Comment on above: Performed By: #### L 100.0100, L500.2500 ####[facility] [address] [place], [address] Erythrocyte distribution width (RBC) [Ratio] 15.9 % High 11.6-14.6 [facility] Comment on above: Performed By: #### L 100.0100, L500.2500 ####[facility] [address] [place], [address] Hematocrit (Bld) [Volume fraction] 30.4 % Low 37-47 [facility] Comment on above: Performed By: #### L 100.0100, L500.2500 ####[facility] [address] [place], [address] Hemoglobin (Bld) [Mass/Vol] 9.5 g/dL Low 12.0-15.0 [facility] Comment on above: Performed By: #### L 100.0100, L500.2500 ####[facility] [address] [place], [address] IG% 1.200 High 0.0-0.9 [facility] Comment on above: Result Comment: IG% - Immature Granulocytes (promyelocytes, myelocytes andmetamyelocytes) > 1% indicates that a LEFT SHIFT is Present. Performed By: #### L 100.0100, L500.2500 ####[facility] [address] [place], [address] Lymphocytes/100 WBC (Bld) 21.8 % Normal 19-41 [facility] Comment on above: Performed By: #### L 100.0100, L500.2500 ####[facility] [address] [place], [address] MCH (RBC) [Entitic mass] 28.4 pg Normal 27.0-32.0 [facility] Comment on above: Performed By: #### L 100.0100, L500.2500 ####[facility] [address] [place], [address] MCHC (RBC) [Mass/Vol] 31.3 g/dL Low 32-36 [facility] Comment on above: Performed By: #### L 100.0100, L500.2500 ####[facility] [address] [place], [address] MCV (RBC) [Entitic vol] 91.0 fL Normal 81-99 [facility] Comment on above: Performed By: #### L 100.0100, L500.2500 ####[facility] [address] [place], [address] Monocytes/100 WBC (Bld) 10.1 % High 0-10 [facility] Comment on above: Performed By: #### L 100.0100, L500.2500 ####[facility] [address] [place], [address] Neutrophils/100 WBC (Bld) 62.9 % Normal 47-70 [facility] Comment on above: Performed By: #### L 100.0100, L500.2500 ####[facility] [address] [place], [address] Nucleated RBC (Bld) [#/Vol] 0 10*3/uL Normal 0-5 [facility] Comment on above: Performed By: #### L 100.0100, L500.2500 ####[facility] [address] [place], [address] Platelet mean volume (Bld) [Entitic vol] 9.0 fL Normal 6.2-12.0 [facility] Comment on above: Performed By: #### L 100.0100, L500.2500 ####[facility] [address] [place], [address] Platelets (Bld) [#/Vol] 373 10*3/uL Normal 150-450 [facility] Comment on above: Performed By: #### L 100.0100, L500.2500 ####[facility] [address] [place], [address] RBC (Bld) [#/Vol] 3.34 10*6/uL Low 4.2-5.4 [facility] Comment on above: Performed By: #### L 100.0100, L500.2500 ####[facility] [address] [place], [address] RDW SD 52.9 fl High 35.1-43.9 [facility] Comment on above: Performed By: #### L 100.0100, L500.2500 ####[facility] [address] [place], [address] WBC (Bld) [#/Vol] 6.6 10*3/uL Normal 4.4-11.0 [facility] Comment on above: Performed By: #### L 100.0100, L500.2500 ####[facility] [address] [place], [address] Phosphoruson 06-07-2024 Phosphate [Mass/Vol] 2.9 mg/dL Normal 2.5-4.9 [facility] Comment on above: Order Comment: Comme nts: per DC instructions Performed By: #### L 501.2300 ####[facility] [address] [place], [address] Phosphorus measurementOrdere d By: Aleks Marshall on 06-07-2024 Phosphorus measurement 2.9 mg/dL 2.5-4.9 [facility] HH, Hemoglobin AND Hematocri ton 06-06-2024 Hematocrit (Bld) [Volume fraction] 28.1 % Low 37-47 [facility] [facility] Comment on above: Performed By: #### L 100.0600 ####[facility] [address] [place], [address] Hemoglobin (Bld) [Mass/Vol] 8.9 g/dL Low 12.0-15.0 [facility] Comment on above: Performed By: #### L 100.0600 ####[facility] [address] [place], [address] Basic Metabolic Profile (BMP )on 06-05-2024 BUN/CRE 33.4 RATIO High 10-20 [facility] Comment on above: Performed By: #### L 500.2500 ####[facility] [address] [place], [address] CA,Total 9.0 mg/dL Normal 8.5-10.1 [facility] Comment on above: Performed By: #### L 500.2500 ####[facility] [address] [place], [address] Chloride [Moles/Vol] 99 mmol/L Normal 98-107 [facility] Comment on above: Performed By: #### L 500.2500 ####[facility] [address] [place], [address] CO2 [Moles/Vol] 23.0 mmol/L Normal 21.0-32.0 [facility] Comment on above: Performed By: #### L 500.2500 ####[facility] [address] [place], [address] Creatinine [Mass/Vol] 0.93 mg/dL Normal 0.55-1.02 [facility] Comment on above: Result Comment: The validity of the calculated GFR GFRAA in patients over70 years has not been determined. Clinical correlation isessential. Performed By: #### L 500.2500 ####[facility] [address] [place], [address] ECRCL 38.50 ml/min Normal [facility] Comment on above: Performed By: #### L 500.2500 ####[facility] [address] [place], [address] EST GFR - AA 73 mL/min Normal >60 [facility] Comment on above: Result Comment: Afri can Ugandan GFR Calc Performed By: #### L 500.2500 ####[facility] [address] [place], [address] GAP 9 Normal 5-15 [facility] Comment on above: Performed By: #### L 500.2500 ####[facility] [address] [place], [address] GFR/1.73 sq M.predicted among non-blacks MDRD (S/P/Bld) [Vol rate/Area] 61 mL/min/{1.73_m2} Normal >60 [facility] Comment on above: Result Comment: Non- GFR Calc Performed By: #### L 500.2500 ####[facility] [address] [place], [address] Glucose [Mass/Vol] 97 mg/dL Normal 74-106 [facility] Comment on above: Performed By: #### L 500.2500 ####[facility] [address] [place], [address] Potassium [Moles/Vol] 4.1 mmol/L Normal 3.5-5.1 [facility] Comment on above: Performed By: #### L 500.2500 ####[facility] [address] [place], [address] Sodium [Moles/Vol] 131 mmol/L Low 136-145 [facility] Comment on above: Performed By: #### L 500.2500 ####[facility] [address] [place], [address] Urea nitrogen [Mass/Vol] 31 mg/dL High 7-18 [facility] Comment on above: Performed By: #### L 500.2500 ####[facility] [address] [place], [address] HH, Hemoglobin AND Hematocri ton 06-03-2024 Hematocrit (Bld) [Volume fraction] 30.9 % Low 37-47 [facility] Comment on above: Performed By: #### L 100.0600 ####[facility] [address] [place], [address] Hemoglobin (Bld) [Mass/Vol] 9.4 g/dL Low 12.0-15.0 [facility] Comment on above: Performed By: #### L 100.0600 ####[facility] [address] [place], [address] Basic Metabolic Profile (BMP )on 06-02-2024 BUN/CRE 33.2 RATIO High 10-20 [facility] Comment on above: Performed By: #### L 500.2500 ####[facility] [address] [place], [address] CA,Total 9.0 mg/dL Normal 8.5-10.1 [facility] Comment on above: Performed By: #### L 500.2500 ####[facility] [address] [place], [address] Chloride [Moles/Vol] 105 mmol/L Normal 98-107 [facility] Comment on above: Performed By: #### L 500.2500 ####[facility] [address] [place], [address] CO2 [Moles/Vol] 26.0 mmol/L Normal 21.0-32.0 [facility] Comment on above: Performed By: #### L 500.2500 ####[facility] [address] [place], [address] Creatinine [Mass/Vol] 0.75 mg/dL Normal 0.55-1.02 [facility] Comment on above: Result Comment: The validity of the calculated GFR GFRAA in patients over70 years has not been determined. Clinical correlation isessential. Performed By: #### L 500.2500 ####[facility] [address] [place], [address] ECRCL 44.76 ml/min Normal [facility] Comment on above: Performed By: #### L 500.2500 ####[facility] [address] [place], [address] EST GFR - AA 93 mL/min Normal >60 [facility] Comment on above: Result Comment: Afri can Ugandan GFR Calc Performed By: #### L 500.2500 ####[facility] [address] [place], [address] GAP 6 Normal 5-15 [facility] Comment on above: Performed By: #### L 500.2500 ####[facility] [address] [place], [address] GFR/1.73 sq M.predicted among non-blacks MDRD (S/P/Bld) [Vol rate/Area] 77 mL/min/{1.73_m2} Normal >60 [facility] Comment on above: Result Comment: Non- GFR Calc Performed By: #### L 500.2500 ####[facility] [address] [place], [address] Glucose [Mass/Vol] 99 mg/dL Normal 74-106 [facility] Comment on above: Performed By: #### L 500.2500 ####[facility] [address] [place], [address] Potassium [Moles/Vol] 4.2 mmol/L Normal 3.5-5.1 [facility] Comment on above: Performed By: #### L 500.2500 ####[facility] [address] [place], [address] Sodium [Moles/Vol] 137 mmol/L Normal 136-145 [facility] Comment on above: Performed By: #### L 500.2500 ####[facility] [address] [place], [address] Urea nitrogen [Mass/Vol] 25 mg/dL High 7-18 [facility] Comment on above: Performed By: #### L 500.2500 ####[facility] [address] [place], [address] HH, Hemoglobin AND Hematocri ton 06-01-2024 Hematocrit (Bld) [Volume fraction] 29.8 % Low 37-47 [facility] Comment on above: Performed By: #### L 100.0600 ####[facility] [address] [place], [address] Hemoglobin (Bld) [Mass/Vol] 9.2 g/dL Low 12.0-15.0 [facility] Comment on above: Performed By: #### L 100.0600 ####[facility] [address] [place], [address] Basic Metabolic Profile (BMP )on 05-31-2024 BUN/CRE 40.2 RATIO High 10-20 [facility] Comment on above: Performed By: #### L 500.2500, L100.0100 ####[facility] [address] [place], [address] CA,Total 9.0 mg/dL Normal 8.5-10.1 [facility] Comment on above: Performed By: #### L 500.2500, L100.0100 ####[facility] [address] [place], [address] Chloride [Moles/Vol] 107 mmol/L Normal 98-107 [facility] Comment on above: Performed By: #### L 500.2500, L100.0100 ####[facility] [address] [place], [address] CO2 [Moles/Vol] 23.0 mmol/L Normal 21.0-32.0 [facility] Comment on above: Performed By: #### L 500.2500, L100.0100 ####[facility] [address] [place], [address] Creatinine [Mass/Vol] 0.77 mg/dL Normal 0.55-1.02 [facility] Comment on above: Result Comment: The validity of the calculated GFR GFRAA in patients over70 years has not been determined. Clinical correlation isessential. Performed By: #### L 500.2500, L100.0100 ####[facility] [address] [place], [address] ECRCL 44.92 ml/min Normal [facility] Comment on above: Performed By: #### L 500.2500, L100.0100 ####[facility] [address] [place], [address] EST GFR - AA 91 mL/min Normal >60 [facility] Comment on above: Result Comment: Afri can Ug[place]an GFR Calc Performed By: #### L 500.2500, L100.0100 ####[facility] [address] [place], [address] GAP 5 Normal 5-15 [facility] Comment on above: Performed By: #### L 500.2500, L100.0100 ####[facility] [address] [place], [address] GFR/1.73 sq M.predicted among non-blacks MDRD (S/P/Bld) [Vol rate/Area] 75 mL/min/{1.73_m2} Normal >60 [facility] Comment on above: Result Comment: Non- GFR Calc Performed By: #### L 500.2500, L100.0100 ####[facility] [address] [place], [address] Glucose [Mass/Vol] 113 mg/dL High 74-106 [facility] Comment on above: Result Comment: Fast ing Glucose result from 100 to 125 mg/dLsuggests IMPAIRED HOMEOSTASIS per A.D.A. criteria. Performed By: #### L 500.2500, L100.0100 ####[facility] [address] [place], [address] Potassium [Moles/Vol] 4.9 mmol/L Normal 3.5-5.1 [facility] Comment on above: Performed By: #### L 500.2500, L100.0100 ####[facility] [address] [place], [address] Sodium [Moles/Vol] 135 mmol/L Low 136-145 [facility] Comment on above: Performed By: #### L 500.2500, L100.0100 ####[facility] [address] [place], [address] Urea nitrogen [Mass/Vol] 31 mg/dL High 7-18 [facility] Comment on above: Performed By: #### L 500.2500, L100.0100 ####[facility] [address] [place], [address] CBC W/Diff, Automatedon - 0-2024 Absolute Lymph 1.12 X10 3/uL Normal 0.83-4.51 [facility] Comment on above: Performed By: #### L 500.2500, L100.0100 ####[facility] [address] [place], [address] Absolute Neut 4.2 X10 3/uL Normal 2.0-7.7 [facility] Comment on above: Performed By: #### L 500.2500, L100.0100 ####[facility] [address] [place], [address] Basophils/100 WBC (Bld) 1.1 % High 0-1 [facility] Comment on above: Performed By: #### L 500.2500, L100.0100 ####[facility] [address] [place], [address] Eosinophils/100 WBC (Bld) 2.8 % Normal 0-5 [facility] Comment on above: Performed By: #### L 500.2500, L100.0100 ####[facility] [address] [place], [address] Erythrocyte distribution width (RBC) [Ratio] 15.9 % High 11.6-14.6 [facility] Comment on above: Performed By: #### L 500.2500, L100.0100 ####[facility] [address] [place], [address] Hematocrit (Bld) [Volume fraction] 30.2 % Low 37-47 [facility] Comment on above: Performed By: #### L 500.2500, L100.0100 ####[facility] [address] [place], [address] Hemoglobin (Bld) [Mass/Vol] 9.3 g/dL Low 12.0-15.0 [facility] Comment on above: Performed By: #### L 500.2500, L100.0100 ####[facility] [address] [place], [address] IG% 1.300 High 0.0-0.9 [facility] Comment on above: Result Comment: IG% - Immature Granulocytes (promyelocytes, myelocytes andmetamyelocytes) > 1% indicates that a LEFT SHIFT is Present. Performed By: #### L 500.2500, L100.0100 ####[facility] [address] [place], [address] Lymphocytes/100 WBC (Bld) 18.1 % Low 19-41 [facility] Comment on above: Performed By: #### L 500.2500, L100.0100 ####[facility] [address] [place], [address] MCH (RBC) [Entitic mass] 29.5 pg Normal 27.0-32.0 [facility] Comment on above: Performed By: #### L 500.2500, L100.0100 ####[facility] [address] [place], [address] MCHC (RBC) [Mass/Vol] 30.8 g/dL Low 32-36 [facility] Comment on above: Performed By: #### L 500.2500, L100.0100 ####[facility] [address] [place], [address] MCV (RBC) [Entitic vol] 95.9 fL Normal 81-99 [facility] Comment on above: Performed By: #### L 500.2500, L100.0100 ####[facility] [address] [place], [address] Monocytes/100 WBC (Bld) 9.2 % Normal 0-10 [facility] Comment on above: Performed By: #### L 500.2500, L100.0100 ####[facility] [address] [place], [address] Neutrophils/100 WBC (Bld) 67.5 % Normal 47-70 [facility] Comment on above: Performed By: #### L 500.2500, L100.0100 ####[facility] [address] [place], [address] Nucleated RBC (Bld) [#/Vol] 0 10*3/uL Normal 0-5 [facility] Comment on above: Performed By: #### L 500.2500, L100.0100 ####[facility] [address] [place], [address] Platelet mean volume (Bld) [Entitic vol] 9.5 fL Normal 6.2-12.0 [facility] Comment on above: Performed By: #### L 500.2500, L100.0100 ####[facility] [address] [place], [address] Platelets (Bld) [#/Vol] 293 10*3/uL Normal 150-450 [facility] Comment on above: Performed By: #### L 500.2500, L100.0100 ####[facility] [address] [place], [address] RBC (Bld) [#/Vol] 3.15 10*6/uL Low 4.2-5.4 [facility] Comment on above: Performed By: #### L 500.2500, L100.0100 ####[facility] [address] [place], [address] RDW SD 55.9 fl High 35.1-43.9 [facility] Comment on above: Performed By: #### L 500.2500, L100.0100 ####[facility] [address] [place], [address] WBC (Bld) [#/Vol] 6.2 10*3/uL Normal 4.4-11.0 [facility] Comment on above: Performed By: #### L 500.2500, L100.0100 ####[facility] [address] [place], [address] Venous Duplex US - Yfn Extre mon 05-31-2024 Venous Duplex US - Yfn Extrem Normal [facility] Clarity (U)Ordered By: Joyce Cliffordcarlitos on 05-28-2024 Urine clarity Clear Clear [facility] Color (U)Ordered By: Joyce dumont on 05-28-2024 Urine color determination Yellow Yellow [facility] Leukocyte esterase Test stri p Ql (U)Ordered By: Joyce Cliffordcarlitos on 05-28-2024 Urine leukocyte esterase detection by dipstick 25 /ul High Negative [facility] Microscopic analysis of urin e for red blood cells (RBC)Ordered By: Joyce Cliffordcarlitos on 05-28-2024 Microscopic analysis of urine for red blood cells (RBC) 5-10 SEEN /hpf 0-5 [facility] Protein Test strip Ql (U)Ord ered By: Joyce Cliffordcarlitos on 05-28-2024 Urine protein assay by test strip, semi-quantitative 15 mg/dl High Negative [facility] Specific gravity (U) [Rel de nsity]Ordered By: Joyce Cliffordcarlitos on 05-28-2024 Urine specific gravity measurement 1.010 1.002-1.030 [facility] Squamous epithelial cells de tection in urine sediment by light microscopyOrdered By: Joyce Cliffordcarlitos on 05-28-2024 Squamous epithelial cells detection in urine sediment by light microscopy 0 SEEN /hpf [facility] Urinalysis, Completeon 05-28 RBC 5-10 SEEN Normal 0-5 [facility] Comment on above: Order Comment: COLT TER SPECIMEN Performed By: #### L 400.0001 ####[facility] [address] [facility], [address] WBC 0-5 SEEN Normal 0-5 [facility] Comment on above: Order Comment: COLT TER SPECIMEN Performed By: #### L 400.0001 ####[facility] [address] [place], [address] BACTERIA 0 SEEN Normal None Seen [facility] Comment on above: Order Comment: COLT TER SPECIMEN Performed By: #### L 400.0001 ####[facility] [address] [place], [address] EPI,SQUAMOUS 0 SEEN Normal 5-10 [facility] Comment on above: Order Comment: COLT TER SPECIMEN Performed By: #### L 400.0001 ####[facility] [address] [place], [address] Mucus Ql (Urine sed) 0 SEEN Normal [facility] Comment on above: Order Comment: COLT TER SPECIMEN Performed By: #### L 400.0001 ####[facility] [address] [place], [address] Urine blood detectionOrdered By: Joyce Rousseau on 05-28-2024 Urine blood detection 50 /ul High Negative [facility] Urine glucose detectionOrder ed By: Joyce Rousseau on 05-28-2024 Urine glucose detection Normal mg/dl Normal [facility] Urine total bilirubin detect ion by test stripOrdered By: Joyce Rousseau on 05-28-2024 Urine total bilirubin detection by test strip Negative Negative [facility] White blood cell countOrdere d By: Joyce Rousseau on 05-28-2024 White blood cell count 0-5 SEEN /hpf 0-5 [facility] pH (U)Ordered By: Joyce urbina on 05-28-2024 Urine pH 6.5 5.0 - 8.0 [facility] Basic Metabolic Profile (BMP )on 05-24-2024 BUN/CRE 26.9 RATIO High 10-20 [facility] Comment on above: Performed By: #### L 501.5200, L500.2500, L100.0500 ####[facility] [address] [place], [address] CA,Total 8.7 mg/dL Normal 8.5-10.1 [facility] Comment on above: Performed By: #### L 501.5200, L500.2500, L100.0500 ####[facility] [address] [place], [address] Chloride [Moles/Vol] 110 mmol/L High 98-107 [facility] Comment on above: Performed By: #### L 501.5200, L500.2500, L100.0500 ####[facility] [address] [place], [address] CO2 [Moles/Vol] 24.0 mmol/L Normal 21.0-32.0 [facility] Comment on above: Performed By: #### L 501.5200, L500.2500, L100.0500 ####[facility] [address] [place], [address] Creatinine [Mass/Vol] 0.93 mg/dL Normal 0.55-1.02 [facility] Comment on above: Result Comment: The validity of the calculated GFR GFRAA in patients over70 years has not been determined. Clinical correlation isessential. Performed By: #### L 501.5200, L500.2500, L100.0500 ####[facility] [address] [place], [address] ECRCL 37.45 ml/min Normal [facility] Comment on above: Performed By: #### L 501.5200, L500.2500, L100.0500 ####[facility] [address] [place], [address] EST GFR - AA 73 mL/min Normal >60 [facility] Comment on above: Result Comment: Afri can Ugandan GFR Calc Performed By: #### L 501.5200, L500.2500, L100.0500 ####[facility] [address] [place], [address] GAP 5 Normal 5-15 [facility] Comment on above: Performed By: #### L 501.5200, L500.2500, L100.0500 ####[facility] [address] [place], [address] GFR/1.73 sq M.predicted among non-blacks MDRD (S/P/Bld) [Vol rate/Area] 61 mL/min/{1.73_m2} Normal >60 [facility] Comment on above: Result Comment: Non- GFR Calc Performed By: #### L 501.5200, L500.2500, L100.0500 ####[facility] [address] [place], [address] Glucose [Mass/Vol] 93 mg/dL Normal 74-106 [facility] Comment on above: Performed By: #### L 501.5200, L500.2500, L100.0500 ####[facility] [address] [place], [address] Potassium [Moles/Vol] 4.7 mmol/L Normal 3.5-5.1 [facility] Comment on above: Performed By: #### L 501.5200, L500.2500, L100.0500 ####[facility] [address] [place], [address] Sodium [Moles/Vol] 138 mmol/L Normal 136-145 [facility] Comment on above: Performed By: #### L 501.5200, L500.2500, L100.0500 ####[facility] [address] [place], [address] Urea nitrogen [Mass/Vol] 25 mg/dL High 7-18 [facility] Comment on above: Performed By: #### L 501.5200, L500.2500, L100.0500 ####[facility] [address] [place], [address] Blood urea nitrogen (BUN)/cr eatinine ratioOrdered By: oJyce Rousseau on 05-24-2024 Blood urea nitrogen (BUN)/creatinine ratio 26.9 RATIO High 10-20 [facility] CBC-Complete Blood Cnt No Di ffon 05-24-2024 Erythrocyte distribution width (RBC) [Ratio] 15.7 % High 11.6-14.6 [facility] Comment on above: Performed By: #### L 501.5200, L500.2500, L100.0500 ####[facility] [address] [place], [address] Hematocrit (Bld) [Volume fraction] 33.8 % Low 37-47 [facility] Comment on above: Performed By: #### L 501.5200, L500.2500, L100.0500 ####[facility] [address] [place], [address] Hemoglobin (Bld) [Mass/Vol] 10.6 g/dL Low 12.0-15.0 [facility] Comment on above: Performed By: #### L 501.5200, L500.2500, L100.0500 ####[facility] [address] [place], [address] MCH (RBC) [Entitic mass] 29.0 pg Normal 27.0-32.0 [facility] Comment on above: Performed By: #### L 501.5200, L500.2500, L100.0500 ####[facility] [address] [place], [address] MCHC (RBC) [Mass/Vol] 31.4 g/dL Low 32-36 [facility] Comment on above: Performed By: #### L 501.5200, L500.2500, L100.0500 ####[facility] [address] [place], [address] MCV (RBC) [Entitic vol] 92.3 fL Normal 81-99 [facility] Comment on above: Performed By: #### L 501.5200, L500.2500, L100.0500 ####[facility] [address] [place], [address] Platelet mean volume (Bld) [Entitic vol] 9.4 fL Normal 6.2-12.0 [facility] Comment on above: Performed By: #### L 501.5200, L500.2500, L100.0500 ####[facility] [address] [place], [address] Platelets (Bld) [#/Vol] 433 10*3/uL Normal 150-450 [facility] Comment on above: Performed By: #### L 501.5200, L500.2500, L100.0500 ####[facility] [address] [place], [address] RBC (Bld) [#/Vol] 3.66 10*6/uL Low 4.2-5.4 [facility] Comment on above: Performed By: #### L 501.5200, L500.2500, L100.0500 ####[facility] [address] [place], [address] RDW SD 52.7 fl High 35.1-43.9 [facility] Comment on above: Performed By: #### L 501.5200, L500.2500, L100.0500 ####[facility] [address] [place], [address] WBC (Bld) [#/Vol] 8.3 10*3/uL Normal 4.4-11.0 [facility] Comment on above: Performed By: #### L 501.5200, L500.2500, L100.0500 ####[facility] [address] [place], [address] Calcium [Mass/Vol]Ordered By : Joyce Rousseau on 05-24-2024 Serum or plasma calcium measurement (mass/volume) 8.7 mg/dL 8.5-10.1 [facility] Carbon dioxide measurementOr dered By: Joyce Rousseau on 05-24-2024 Carbon dioxide measurement 24.0 mmol/L 21.0-32.0 [facility] Chloride measurementOrdered By: Joyce Rousseau on 05-24-2024 Chloride measurement 110 mmol/L High 98-107 [facility] Creatinine [Mass/Vol]Ordered By: Joyce Rousseau on 05-24-2024 Serum or plasma creatinine measurement (mass/volume) 0.93 mg/dL 0.55-1.02 [facility] Erythrocyte distribution wid th (RBC) [Ratio]Ordered By: Joyce Rousseau on 05-24-2024 Erythrocyte distribution width ratio 15.7 % High 11.6-14.6 [facility] Erythrocyte distribution wid th standard deviationOrdered By: Joyce Rousseau on 05-24-2024 Erythrocyte distribution width standard deviation 52.7 fl High 35.1-43.9 [facility] Estimated glomerular filtrat ion rate (GFR) AmericanOrdered By: Joyce Rousseau on 05-24-2024 Estimated glomerular filtration rate (GFR) 73 mL/min >60 [facility] Estimation of creatinine mary ellen aranceOrdered By: Joyce Rousseau on 05-24-2024 Estimation of creatinine clearance 37.45 ml/min [facility] Glomerular filtration rate ( GFR) estimationOrdered By: Joyce Rousseau on 05-24-2024 Glomerular filtration rate (GFR) estimation 61 mL/min >60 [facility] Glucose measurementOrdered B y: Joyce Rousseau on 05-24-2024 Glucose measurement 93 mg/dL 74-106 [facility] Hematocrit Auto (Bld) [Volum e fraction]Ordered By: Joyce Rousseau on 05-24-2024 Automated blood hematocrit (percentage) 33.8 % Low 37-47 [facility] Hemoglobin measurementOrdere d By: Joyce Rousseau on 05-24-2024 Hemoglobin measurement 10.6 g/dL Low 12.0-15.0 [facility] MCV (RBC) [Entitic vol]Order ed By: Joyce Rousseau on 05-24-2024 MCV (mean corpuscular volume) determination 92.3 fL 81-99 [facility] Magnesiumon 05-24-2024 Magnesium [Mass/Vol] 2.5 mg/dL Normal 1.6-2.6 [facility] Comment on above: Performed By: #### L 501.5200, L500.2500, L100.0500 ####[facility] [address] [place], [place], [id number] Magnesium measurementOrdered By: Joyce Rousseau on 05-24-2024 Magnesium measurement 2.5 mg/dL 1.6-2.6 [facility] Mean corpuscular hemoglobin (MCH) determinationOrdered By: Joyce Rousseau on 05-24-2024 Mean corpuscular hemoglobin (MCH) determination 29.0 pg 27.0-32.0 [facility] Mean corpuscular hemoglobin concentration (MCHC) determinationOrdered By: Joyce Rousseau on 05-24-2024 Mean corpuscular hemoglobin concentration (MCHC) determination 31.4 g/dL Low 32-36 [facility] Mean platelet volume determi nationOrdered By: Joyce Rousseau on 05-24-2024 Mean platelet volume determination 9.4 fl 6.2-12.0 [facility] Phosphoruson 05-24-2024 Phosphate [Mass/Vol] 2.1 mg/dL Low 2.5-4.9 [facility] Comment on above: Performed By: #### L 501.2300 ####[facility] [address] [place], [address] Phosphorus measurementOrdere d By: Joyce Rousseau on 05-24-2024 Phosphorus measurement 2.1 mg/dL Low 2.5-4.9 [facility] Platelet countOrdered By: Sammy Rousseau on 05-24-2024 Platelet count 433 K/mm3 150-450 [facility] Potassium measurementOrdered By: Joyce Rousseau on 05-24-2024 Potassium measurement 4.7 mmol/L 3.5-5.1 [facility] RBC Auto (Bld) [#/Vol]Ordere d By: Joyce Rousseau on 05-24-2024 Automated blood erythrocyte count 3.66 M/mm3 Low 4.2-5.4 [facility] Serum anion gap measurementO rdered By: Joyce Rousseau on 05-24-2024 Serum anion gap measurement 5 5-15 [facility] Sodium levelOrdered By: Joyce Rousseau on 05-24-2024 Sodium level 138 mmol/L 136-145 [facility] Urea nitrogen [Mass/Vol]Orde red By: Joyce Rousseau on 05-24-2024 Serum or plasma urea nitrogen measurement (mass/volume) 25 mg/dL High 7-18 [facility] White blood cell (WBC) count Ordered By: Joyce Rousseau on 05-24-2024 White blood cell (WBC) count 8.3 K/mm3 4.4-11.0 [facility] Stool Occult Blood iFOBon STOB Negative Normal [facility] Comment on above: Performed By: #### M 100.7900 ####[facility] [address] [place], [address] Urine Cultureon 05-19-2024 URC Normal [facility] Comment on above: Performed By: #### M 100.2200 ####[facility] [address] [place], [address] Ferritinon 05-18-2024 Ferritin [Mass/Vol] 113 ng/mL Normal 8-252 [facility] Comment on above: Performed By: #### L 503.6030, L503.6550 ####[facility] [address] [place], [address] Ferritin measurementOrdered By: Joyce Rousseau on 05-18-2024 Ferritin measurement 113 ng/mL 8-252 [facility] Iron (Unsp spec) [Mass/Mass] Ordered By: Joyce Rousseau on 05-18-2024 Iron measurement (mass/mass) 61 ug/dL 50-170 [facility] Iron saturation [Mass fracti on]Ordered By: Joyce Rousseau on 05-18-2024 Serum or plasma iron saturation measurement (mass fraction) 11.2 % Low 15.0-55.0 [facility] Iron+Iron Binding Capacityon 05-18-2024 Iron [Mass/Vol] 61 ug/dL Normal 50-170 [facility] Comment on above: Performed By: #### L 503.6030, L503.6550 ####[facility] [address] [place], [address] IRON SATURATION 11.2 Low 15.0-55.0 [facility] Comment on above: Performed By: #### L 503.6030, L503.6550 ####[facility] [address] [place], [address] TIBC 546 ug/dL High 250-450 [facility] Comment on above: Performed By: #### L 503.6030, L503.6550 ####[facility] [address] [place], [place], [id number] TIBCOrdered By: Joyce Cliffordcarlitos on 05-18-2024 TIBC 546 ug/dL High 250-450 [facility] ALP [Catalytic activity/Vol] Ordered By: Aleks Rolando on 05-17-2024 Serum or plasma alkaline phosphatase measurement 59 U/L 45-117 [facility] ALT [Catalytic activity/Vol] Ordered By: Aleks Rolando on 05-17-2024 Serum or plasma alanine aminotransferase (ALT) measurement 20 U/L 13-56 [facility] Absolute neutrophil countOrd ered By: Aleks Cutlerok on 05-17-2024 Absolute neutrophil count 4.6 X10^3/uL 2.0-7.7 [facility] Albumin [Mass/Vol]Ordered By : Aleks Marshall on 05-17-2024 Serum or plasma albumin measurement (mass/volume) 3.0 g/dL Low 3.2-5.0 [facility] Albumin to globulin ratioOrd ered By: Aleks Rolando on 05-17-2024 Albumin to globulin ratio 0.8 RATIO Low 0.9-2.4 [facility] Basophil percentageOrdered B y: Aleks Rolando on 05-17-2024 Basophil percentage 0.9 % 0-1 [facility] Bilirubin, totalOrdered By: Aleks Rolando on 05-17-2024 Bilirubin, total 0.30 mg/dL 0.20-1.00 [facility] CBC W/Diff, Automatedon Absolute Lymph 1.66 X10 3/uL Normal 0.83-4.51 [facility] Comment on above: Performed By: #### L 500.4050, L501.2300, L501.5200, L100.0100 ####[facility] [address] [place], [place], [id number] Absolute Neut 4.6 X10 3/uL Normal 2.0-7.7 [facility] Comment on above: Performed By: #### L 500.4050, L501.2300, L501.5200, L100.0100 ####[facility] [address] [place], [address] Basophils/100 WBC (Bld) 0.9 % Normal 0-1 [facility] Comment on above: Performed By: #### L 500.4050, L501.2300, L501.5200, L100.0100 ####[facility] [address] [place], [address] Eosinophils/100 WBC (Bld) 5.1 % High 0-5 [facility] Comment on above: Performed By: #### L 500.4050, L501.2300, L501.5200, L100.0100 ####[facility] [address] [place], [address] Erythrocyte distribution width (RBC) [Ratio] 14.3 % Normal 11.6-14.6 [facility] Comment on above: Performed By: #### L 500.4050, L501.2300, L501.5200, L100.0100 ####[facility] [address] [place], [address] Hematocrit (Bld) [Volume fraction] 34.6 % Low 37-47 [facility] Comment on above: Performed By: #### L 500.4050, L501.2300, L501.5200, L100.0100 ####[facility] [address] [place], [address] Hemoglobin (Bld) [Mass/Vol] 10.7 g/dL Low 12.0-15.0 [facility] Comment on above: Performed By: #### L 500.4050, L501.2300, L501.5200, L100.0100 ####[facility] [address] [place], [address] IG% 0.700 Normal 0.0-0.9 [facility] Comment on above: Result Comment: IG% - Immature Granulocytes (promyelocytes, myelocytes andmetamyelocytes) > 1% indicates that a LEFT SHIFT is Present. Performed By: #### L 500.4050, L501.2300, L501.5200, L100.0100 ####[facility] [address] [place], [address] Lymphocytes/100 WBC (Bld) 21.8 % Normal 19-41 [facility] Comment on above: Performed By: #### L 500.4050, L501.2300, L501.5200, L100.0100 ####[facility] [address] [place], [address] MCH (RBC) [Entitic mass] 28.1 pg Normal 27.0-32.0 [facility] Comment on above: Performed By: #### L 500.4050, L501.2300, L501.5200, L100.0100 ####[facility] [address] [place], [address] MCHC (RBC) [Mass/Vol] 30.9 g/dL Low 32-36 [facility] Comment on above: Performed By: #### L 500.4050, L501.2300, L501.5200, L100.0100 ####[facility] [address] [place], [address] MCV (RBC) [Entitic vol] 90.8 fL Normal 81-99 [facility] Comment on above: Performed By: #### L 500.4050, L501.2300, L501.5200, L100.0100 ####[facility] [address] [place], [address] Monocytes/100 WBC (Bld) 10.8 % High 0-10 [facility] Comment on above: Performed By: #### L 500.4050, L501.2300, L501.5200, L100.0100 ####[facility] [address] [place], [address] Neutrophils/100 WBC (Bld) 60.7 % Normal 47-70 [facility] Comment on above: Performed By: #### L 500.4050, L501.2300, L501.5200, L100.0100 ####[facility] [address] [place], [address] Nucleated RBC (Bld) [#/Vol] 0 10*3/uL Normal 0-5 [facility] Comment on above: Performed By: #### L 500.4050, L501.2300, L501.5200, L100.0100 ####[facility] [address] [place], [address] Platelet mean volume (Bld) [Entitic vol] 9.7 fL Normal 6.2-12.0 [facility] Comment on above: Performed By: #### L 500.4050, L501.2300, L501.5200, L100.0100 ####[facility] [address] [place], [address] Platelets (Bld) [#/Vol] 369 10*3/uL Normal 150-450 [facility] Comment on above: Performed By: #### L 500.4050, L501.2300, L501.5200, L100.0100 ####[facility] [address] [place], [address] RBC (Bld) [#/Vol] 3.81 10*6/uL Low 4.2-5.4 [facility] Comment on above: Performed By: #### L 500.4050, L501.2300, L501.5200, L100.0100 ####[facility] [address] [place], [address] RDW SD 47.6 fl High 35.1-43.9 [facility] Comment on above: Performed By: #### L 500.4050, L501.2300, L501.5200, L100.0100 ####[facility] [address] [place], [address] WBC (Bld) [#/Vol] 7.6 10*3/uL Normal 4.4-11.0 [facility] Comment on above: Performed By: #### L 500.4050, L501.2300, L501.5200, L100.0100 ####[facility] [address] [place], [address] Comprehensive Metabolic Prof [facility] 05-17-2024 Albumin [Mass/Vol] 3.0 g/dL Low 3.2-5.0 [facility] Comment on above: Performed By: #### L 500.4050, L501.2300, L501.5200, L100.0100 ####[facility] [address] [place], [address] Albumin/Globulin [Mass ratio] 0.8 {ratio} Low 0.9-2.4 [facility] Comment on above: Performed By: #### L 500.4050, L501.2300, L501.5200, L100.0100 ####[facility] [address] [place], [address] ALK P 59 U/L Normal 45-117 [facility] Comment on above: Performed By: #### L 500.4050, L501.2300, L501.5200, L100.0100 ####[facility] [address] [place], [address] ALT [Catalytic activity/Vol] 20 U/L Normal 13-56 [facility] Comment on above: Performed By: #### L 500.4050, L501.2300, L501.5200, L100.0100 ####[facility] [address] [place], [address] AST [Catalytic activity/Vol] 28 U/L Normal 15-37 [facility] Comment on above: Performed By: #### L 500.4050, L501.2300, L501.5200, L100.0100 ####[facility] [address] [place], [address] Bilirubin [Mass/Vol] 0.30 mg/dL Normal 0.20-1.00 [facility] Comment on above: Result Comment: For patients on eltrombopag therapy, use of Dimension Crawford TBIL is not recommended. Performed By: #### L 500.4050, L501.2300, L501.5200, L100.0100 ####[facility] [address] [place], [address] BUN/CRE 34.4 RATIO High 10-20 [facility] Comment on above: Performed By: #### L 500.4050, L501.2300, L501.5200, L100.0100 ####[facility] [address] [place], [address] CA,Total 8.8 mg/dL Normal 8.5-10.1 [facility] Comment on above: Performed By: #### L 500.4050, L501.2300, L501.5200, L100.0100 ####[facility] [address] [place], [address] Chloride [Moles/Vol] 106 mmol/L Normal 98-107 [facility] Comment on above: Performed By: #### L 500.4050, L501.2300, L501.5200, L100.0100 ####[facility] [address] [place], [address] CO2 [Moles/Vol] 25.0 mmol/L Normal 21.0-32.0 [facility] Comment on above: Performed By: #### L 500.4050, L501.2300, L501.5200, L100.0100 ####[facility] [address] [place], [address] Creatinine [Mass/Vol] 0.82 mg/dL Normal 0.55-1.02 [facility] Comment on above: Result Comment: The validity of the calculated GFR GFRAA in patients over70 years has not been determined. Clinical correlation isessential. Performed By: #### L 500.4050, L501.2300, L501.5200, L100.0100 ####[facility] [address] [place], [address] ECRCL 42.52 ml/min Normal [facility] Comment on above: Performed By: #### L 500.4050, L501.2300, L501.5200, L100.0100 ####[facility] [address] [place], [address] EST GFR - AA 85 mL/min Normal >60 [facility] Comment on above: Result Comment: Afri can Ugandan GFR Calc Performed By: #### L 500.4050, L501.2300, L501.5200, L100.0100 ####[facility] [address] [place], [address] GAP 5 Normal 5-15 [facility] Comment on above: Performed By: #### L 500.4050, L501.2300, L501.5200, L100.0100 ####[facility] [address] [place], [address] GFR/1.73 sq M.predicted among non-blacks MDRD (S/P/Bld) [Vol rate/Area] 70 mL/min/{1.73_m2} Normal >60 [facility] Comment on above: Result Comment: Non- GFR Calc Performed By: #### L 500.4050, L501.2300, L501.5200, L100.0100 ####[facility] [address] [place], [address] Globulin (S) [Mass/Vol] 3.7 g/dL Normal 2.2-4.2 [facility] Comment on above: Performed By: #### L 500.4050, L501.2300, L501.5200, L100.0100 ####[facility] [address] [place], [address] Glucose [Mass/Vol] 102 mg/dL Normal 74-106 [facility] Comment on above: Result Comment: Fast ing Glucose result from 100 to 125 mg/dLsuggests IMPAIRED HOMEOSTASIS per A.D.A. criteria. Performed By: #### L 500.4050, L501.2300, L501.5200, L100.0100 ####[facility] [address] [place], [address] Potassium [Moles/Vol] 4.1 mmol/L Normal 3.5-5.1 [facility] Comment on above: Performed By: #### L 500.4050, L501.2300, L501.5200, L100.0100 ####[facility] [address] [place], [address] Sodium [Moles/Vol] 136 mmol/L Normal 136-145 [facility] Comment on above: Performed By: #### L 500.4050, L501.2300, L501.5200, L100.0100 ####[facility] [address] [place], [address] T PROT 6.7 g/dL Normal 6.4-8.2 [facility] Comment on above: Performed By: #### L 500.4050, L501.2300, L501.5200, L100.0100 ####[facility] [address] [place], [address] Urea nitrogen [Mass/Vol] 28 mg/dL High 7-18 [facility] Comment on above: Performed By: #### L 500.4050, L501.2300, L501.5200, L100.0100 ####[facility] [address] [place], [place], [id number] Eosinophil percentageOrdered By: Aleks Cutlerok on 05-17-2024 Eosinophil percentage 5.1 % High 0-5 [facility] Immature granulocytes/100 WB C Auto (Bld)Ordered By: Aleks Rolando on 05-17-2024 Automated immature granulocyte percentage 0.700 % 0.0-0.9 [facility] Lymphocytes Auto (Unsp spec) [#/Vol]Ordered By: Aleks Cutlerok on 05-17-2024 Absolute lymphocyte count 1.66 X10^3/uL 0.83-4.51 [facility] Lymphocytes/100 WBC Auto (Un sp spec)Ordered By: Aleks Rolando on 05-17-2024 Automated lymphocyte count as percentage of total leukocytes 21.8 % 19-41 [facility] Magnesiumon 05-17-2024 Magnesium [Mass/Vol] 2.4 mg/dL Normal 1.6-2.6 [facility] Comment on above: Performed By: #### L 500.4050, L501.2300, L501.5200, L100.0100 ####[facility] [address] [place], [place], [id number] Monocyte percentageOrdered B y: Aleks Cutlerok on 05-17-2024 Monocyte percentage 10.8 % High 0-10 [facility] Neutrophil percentageOrdered By: Aleks Rolando on 05-17-2024 Neutrophil percentage 60.7 % 47-70 [facility] No Panel InformationOrdered By: Aleks Rolando on 05-17-2024 28 U/L 15-37 [facility] Nucleated red blood cell per centageOrdered By: Aleks Rolando on 05-17-2024 Nucleated red blood cell percentage 0 % 0-5 [facility] Phosphoruson 05-17-2024 Phosphate [Mass/Vol] 2.4 mg/dL Low 2.5-4.9 [facility] Comment on above: Performed By: #### L 500.4050, L501.2300, L501.5200, L100.0100 ####[facility] [address] [place], [address] Serum globulin measurementOr dered By: Aleks Marshall on 05-17-2024 Serum globulin measurement 3.7 g/dL 2.2-4.2 [facility] Total proteinOrdered By: Aleks Marshall on 05-17-2024 Total protein 6.7 g/dL 6.4-8.2 [facility] Urinalysis, Completeon 05-17 WBC 5-10 SEEN Normal 0-5 [facility] Comment on above: Order Comment: COLT TER SPECIMEN Performed By: #### L 400.0001 ####[facility] [address] [place], [address] BACTERIA 0 SEEN Normal None Seen [facility] Comment on above: Order Comment: COLT TER SPECIMEN Performed By: #### L 400.0001 ####[facility] [address] [place], [address] EPI,SQUAMOUS 0 SEEN Normal 5-10 [facility] Comment on above: Order Comment: COLT TER SPECIMEN Performed By: #### L 400.0001 ####[facility] [address] [place], [address] Mucus Ql (Urine sed) 0 SEEN Normal [facility] Comment on above: Order Comment: COLT TER SPECIMEN Performed By: #### L 400.0001 ####[facility] [address] [place], [address] RBC 0 SEEN Normal 0-5 [facility] Comment on above: Order Comment: COLT TER SPECIMEN Performed By: #### L 400.0001 ####[facility] [address] [place], [address] Urine cultureOrdered By: Aleks Marshall on 05-17-2024 Urine culture Escherichia coli Abnormal [facility] ALLIED HEALTHon 05-16-2024 ALLIED HEALTH HNO ID: [id number] Author: TOMER TRAN Art Therapist Service: Art Therapy Author Type: Therapist Type: Allied Health Filed: 05/16/2024 12:15 Note Text: ART THERAPY NOTE SERVICE DATE: 05/16/2024 SERVICE TIME: 10:30AM Referred By: OT Reason for Referral: Anxiety / Coping Skills / Depressed Mood / Self-Expression / Motor Session Type: Initial COMMENTS: Consult received and appreciated. 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 Pt shared anticipation of discharge today, pending blood pressure. Declined formal session but welcomed materials for independent use. Shared interest in formal session if admitted through the week. Provided desired materials and shared to follow pending availability. Denied further needs and expressed appreciation. Will follow up as able. SIGNATURE: Mckinley Duron Therapist PATIENT NAME: Jatin Solomon DATE: May 16, 2024 TIME: 12:13 PM PAGER/CONTACT #: [id number] Normal [facility] Brain/Head without Contrasto n 05-16-2024 Brain/Head without Contrast Normal [facility] CBC panel Auto (Bld)on 05-16 Erythrocyte distribution width (RBC) [Ratio] 13.9 % Normal 11.5-15.0 [facility] Comment on above: Order Comment: Speci men Type: BLOOD SPECIMENOrdering Facility: [facility] Address: [address] [place] [address] Performed By: #### 5 8410-2 ####[facility] [id number] [place] [address] [place] Hematocrit (Bld) [Volume fraction] 33.9 % Low 36.0-46.0 [facility] Comment on above: Order Comment: Speci men Type: BLOOD SPECIMENOrdering Facility: [facility] Address: [address] [id number] Performed By: #### 5 8410-2 ####[facility] LABCL[facility] [id number] [place] [id number] [place] Hemoglobin (Bld) [Mass/Vol] 10.7 g/dL Low 11.5-15.5 [facility] Comment on above: Order Comment: Speci men Type: BLOOD SPECIMENOrdering Facility: [facility] Address: [address] [place] [address] Performed By: #### 5 8410-2 ####[facility] [id number] [place] [address] [place] MCH (RBC) [Entitic mass] 28.5 pg Normal 26.0-34.0 [facility] Comment on above: Order Comment: Speci men Type: BLOOD SPECIMENOrdering Facility: [facility] Address: [address] [place] [address] Performed By: #### 5 8410-2 ####[facility] [id number] [address] [place] MCHC (RBC) [Mass/Vol] 31.6 g/dL Normal 30.5-36.0 [facility] Comment on above: Order Comment: Speci men Type: BLOOD SPECIMENOrdering Facility: [facility] Address: [address] [place] [address] Performed By: #### 5 8410-2 ####[facility] [id number] [place] [address] [place] MCV (RBC) [Entitic vol] 90.4 fL Normal 80.0-100.0 C [facility] Comment on above: Order Comment: Speci men Type: BLOOD SPECIMENOrdering Facility: [facility] Address: [address] [place] [address] Performed By: #### 5 8410-2 ####[facility] [id number] [place] [address] [place] Nucleated RBC (Bld) [#/Vol] 10*3/uL Normal <0.01 [facility] Comment on above: Order Comment: Speci men Type: BLOOD SPECIMENOrdering Facility: [facility] Address: [address] [place] [address] Performed By: #### 5 8410-2 ####[facility] [id number] [place] [address] [place] Platelet mean volume (Bld) [Entitic vol] 9.8 fL Normal 9.0-12.7 [facility] Comment on above: Order Comment: Speci men Type: BLOOD SPECIMENOrdering Facility: [facility] Address: [address] [place] [address] Performed By: #### 5 8410-2 ####[facility] [id number] [place] [address] [place] Platelets (Bld) [#/Vol] 333 10*3/uL Normal 150-400 [facility] Comment on above: Order Comment: Speci men Type: BLOOD SPECIMENOrdering Facility: [facility] Address: [address] [place] [address] Performed By: #### 5 8410-2 ####[facility] [id number] [place] [address] [place] RBC (Bld) [#/Vol] 3.75 10*6/uL Low 3.90-5.20 [facility] Comment on above: Order Comment: Speci men Type: BLOOD SPECIMENOrdering Facility: [facility] Address: [address] [place] [address] Performed By: #### 5 8410-2 ####[facility] [id number] [place] [address] [place] WBC (Bld) [#/Vol] 7.15 10*3/uL Normal 3.70-11.00 [facility] Comment on above: Order Comment: Speci men Type: BLOOD SPECIMENOrdering Facility: [facility] Address: [address] [place] [address] Performed By: #### 5 8410-2 ####[facility] [id number] [facility] [id number] [id number] [facility] [place] CNDSon 05-16-2024 CNDS HNO ID: [id number] Author: CARI WONG MD, PhD Service: Neurology [...] hemorrhage (HCC) (POA: Yes) Current use of manager long term care anticoagulation (POA: Yes) Restless leg syndrome (POA: [...] basename: ldl:1 HbA1c No results found for: HBA1C Tests/Procedures Performed: 05/11/2024 CTA head/neck w/wo: Redemonstration [...] - Exam was compared with the prior CC echocardiographic exam performed on 02/03/2012. There is no significant change. 05/14/2024 MARIA ESTHER: - The left ventricle is normal in size. Left ventricular systolic function is normal. EF = 60 ? 5% (visual est.) - The right ventricle is normal in size. Right ventricul (more content not included)... Normal [facility] NURSING PROGon 05-16-2024 NURSING PROG HNO ID: [id number] Author: PEEWEE GAGNON, RN Service: Nursing Author [...] legs. Normal [facility] Renal function 2000 panelon 05-16-2024 Albumin [Mass/Vol] 3.6 g/dL Low 3.9-4.9 [facility] Comment on above: Order Comment: Speci men Type: BLOOD SPECIMENOrdering Facility: [facility] Address: [address] [place] [address] Performed By: #### 2 4362-6 ####[facility] [id number] [place] [address] [place] Anion gap [Moles/Vol] 12 mmol/L Normal 8-15 [facility] Comment on above: Order Comment: Speci men Type: BLOOD SPECIMENOrdering Facility: [facility] Address: [address] [place] [address] Performed By: #### 2 4362-6 ####[facility] [id number] [place] [address] [place] Calcium [Mass/Vol] 8.9 mg/dL Normal 8.5-10.2 [facility] Comment on above: Order Comment: Speci men Type: BLOOD SPECIMENOrdering Facility: [facility] Address: [address] [place] [address] Performed By: #### 2 4362-6 ####[facility] [id number] [place] [address] [place] Chloride [Moles/Vol] 102 mmol/L Normal 98-107 [facility] Comment on above: Order Comment: Speci men Type: BLOOD SPECIMENOrdering Facility: [facility] Address: [address] [place] [address] Performed By: #### 2 4362-6 ####[facility] [id number] [place] [address] [place] CO2 [Moles/Vol] 24 mmol/L Normal 22-30 [facility] Comment on above: Order Comment: Speci men Type: BLOOD SPECIMENOrdering Facility: [facility] Address: [address] [place] [address] Performed By: #### 2 4362-6 ####[facility] [id number] [place] [address] [place] Creatinine [Mass/Vol] 0.87 mg/dL Normal 0.58-0.96 [facility] Comment on above: Order Comment: Speci men Type: BLOOD SPECIMENOrdering Facility: [facility] Address: [address] [place] [address] Performed By: #### 2 4362-6 ####[facility] [id number] [place] [address] [place] Creatinine and Glomerular filtration rate.predicted panel (S/P/Bld) 64 mL/min/1.73m??? Normal >=60 [facility] Comment on above: Order Comment: Speci men Type: BLOOD SPECIMENOrdering Facility: [facility] Address: [address] [place] [address] Result Comment: Michael mated Glomerular Filtration Rate [...] actual GFR. Performed By: #### 2 4362-6 ####[facility] [id number] [place] [address] [place] Glucose [Mass/Vol] 95 mg/dL Normal 74-99 [facility] Comment on above: Order Comment: Christopher hurd Type: BLOOD SPECIMENOrdering Facility: [facility] Address: [address] [place] [address] Result Comment: The [place] [employer] (ADA) provides guidance for cutoff [...] Standards of Medical Care in Diabetes 2016, [place] [employer]. Diabetes Care. 2016.39(Suppl 1). Performed By: #### 2 4362-6 ####[facility] [id number] [place] [address] [place] Phosphate [Mass/Vol] 2.7 mg/dL Normal 2.7-4.8 [facility] Comment on above: Order Comment: Christopher hurd Type: BLOOD SPECIMENOrdering Facility: [facility] Address: [address] [place] [address] Performed By: #### 2 4362-6 ####[facility] [id number] [place] [address] [place] Potassium [Moles/Vol] 4.4 mmol/L Normal 3.7-5.1 [facility] Comment on above: Order Comment: Speci men Type: BLOOD SPECIMENOrdering Facility: [facility] Address: [address] [place] [address] Performed By: #### 2 4362-6 ####[facility] [id number] [place] [address] [place] Sodium [Moles/Vol] 138 mmol/L Normal 136-144 [facility] Comment on above: Order Comment: Speci men Type: BLOOD SPECIMENOrdering Facility: [facility] Address: [address] [place] [address] Performed By: #### 2 4362-6 ####[facility] [id number] [place] [address] [place] Urea nitrogen [Mass/Vol] 27 mg/dL High 7-21 [facility] Comment on above: Order Comment: Speci men Type: BLOOD SPECIMENOrdering Facility: [facility] Address: [address] [place] [address] Performed By: #### 2 4362-6 ####[facility] [id number] [place] [address] [place] CBC panel Auto (Bld)on 05-15 Erythrocyte distribution width (RBC) [Ratio] 14.1 % Normal 11.5-15.0 [facility] Comment on above: Order Comment: Speci men Type: BLOOD SPECIMENOrdering Facility: [facility] Address: [address] [place] [address] Performed By: #### 5 8410-2 ####[facility] [id number] [place] [address] [place] Hematocrit (Bld) [Volume fraction] 33.7 % Low 36.0-46.0 [facility] Comment on above: Order Comment: Speci men Type: BLOOD SPECIMENOrdering Facility: [facility] Address: [address] [place] [address] Performed By: #### 5 8410-2 ####[facility] [id number] [place] [address] [place] Hemoglobin (Bld) [Mass/Vol] 10.8 g/dL Low 11.5-15.5 [facility] Comment on above: Order Comment: Speci men Type: BLOOD SPECIMENOrdering Facility: [facility] Address: [address] [place] [address] Performed By: #### 5 8410-2 ####[facility] [id number] [place] [address] [place] MCH (RBC) [Entitic mass] 29.0 pg Normal 26.0-34.0 [facility] Comment on above: Order Comment: Speci men Type: BLOOD SPECIMENOrdering Facility: [facility] Address: [address] [place] [address] Performed By: #### 5 8410-2 ####[facility] [id number] [place] [address] [place] MCHC (RBC) [Mass/Vol] 32.0 g/dL Normal 30.5-36.0 [facility] Comment on above: Order Comment: Speci men Type: BLOOD SPECIMENOrdering Facility: [facility] Address: [address] [place] [address] Performed By: #### 5 8410-2 ####[facility] [id number] [place] [address] [place] MCV (RBC) [Entitic vol] 90.3 fL Normal 80.0-100.0 C [facility] Comment on above: Order Comment: Speci men Type: BLOOD SPECIMENOrdering Facility: [facility] Address: [address] [place] [address] Performed By: #### 5 8410-2 ####[facility] [id number] [place] [address] [place] Nucleated RBC (Bld) [#/Vol] 10*3/uL Normal <0.01 [facility] Comment on above: Order Comment: Speci men Type: BLOOD SPECIMENOrdering Facility: [facility] Address: [address] [place] [address] Performed By: #### 5 8410-2 ####[facility] [id number] [place] [address] [place] Platelet mean volume (Bld) [Entitic vol] 9.5 fL Normal 9.0-12.7 [facility] Comment on above: Order Comment: Speci men Type: BLOOD SPECIMENOrdering Facility: [facility] Address: [address] [place] [address] Performed By: #### 5 8410-2 ####[facility] [id number] [place] [address] [place] Platelets (Bld) [#/Vol] 342 10*3/uL Normal 150-400 [facility] Comment on above: Order Comment: Speci men Type: BLOOD SPECIMENOrdering Facility: [facility] Address: [address] [place] [address] Performed By: #### 5 8410-2 ####[facility] [id number] [place] [address] [place] RBC (Bld) [#/Vol] 3.73 10*6/uL Low 3.90-5.20 [facility] Comment on above: Order Comment: Speci men Type: BLOOD SPECIMENOrdering Facility: [facility] Address: [address] [place] [address] Performed By: #### 5 8410-2 ####[facility] [id number] [place] [address] [place] WBC (Bld) [#/Vol] 8.17 10*3/uL Normal 3.70-11.00 [facility] Comment on above: Order Comment: Speci men Type: BLOOD SPECIMENOrdering Facility: [facility] Address: [address] [place] [address] Performed By: #### 5 8410-2 ####[facility] [id number] [place] [address] [place] Renal function 2000 panelon 05-15-2024 Albumin [Mass/Vol] 3.4 g/dL Low 3.9-4.9 [facility] Comment on above: Order Comment: Speci men Type: BLOOD SPECIMENOrdering Facility: [facility] Address: [address] [place] [address] Performed By: #### 2 4362-6 ####[facility] [id number] [place] [address] [place] Anion gap [Moles/Vol] 12 mmol/L Normal 8-15 [facility] Comment on above: Order Comment: Speci men Type: BLOOD SPECIMENOrdering Facility: [facility] Address: [address] [place] [address] Performed By: #### 2 4362-6 ####[facility] [id number] [place] [address] [place] Calcium [Mass/Vol] 8.6 mg/dL Normal 8.5-10.2 [facility] Comment on above: Order Comment: Speci men Type: BLOOD SPECIMENOrdering Facility: [facility] Address: [address] [place] [address] Performed By: #### 2 4362-6 ####[facility] [id number] [place] [address] [place] Chloride [Moles/Vol] 100 mmol/L Normal 98-107 [facility] Comment on above: Order Comment: Speci men Type: BLOOD SPECIMENOrdering Facility: [facility] Address: [address] [place] [address] Performed By: #### 2 4362-6 ####[facility] [id number] [place] [address] [place] CO2 [Moles/Vol] 23 mmol/L Normal 22-30 [facility] Comment on above: Order Comment: Speci men Type: BLOOD SPECIMENOrdering Facility: [facility] Address: [address] [place] [address] Performed By: #### 2 4362-6 ####[facility] [id number] [place] [address] [place] Creatinine [Mass/Vol] 0.76 mg/dL Normal 0.58-0.96 [facility] Comment on above: Order Comment: Speci men Type: BLOOD SPECIMENOrdering Facility: [facility] Address: [address] [place] [address] Performed By: #### 2 4362-6 ####[facility] [id number] [address] OF [facility] Creatinine and Glomerular filtration rate.predicted panel (S/P/Bld) 75 mL/min/1.73m??? Normal >=60 [facility] Comment on above: Order Comment: Speci men Type: BLOOD SPECIMENOrdering Facility: [facility] Address: [address] [place] [address] Result Comment: Michael mated Glomerular Filtration Rate [...] actual GFR. Performed By: #### 2 4362-6 ####[facility] [id number] [place] [address] [place] Glucose [Mass/Vol] 90 mg/dL Normal 74-99 [facility] Comment on above: Order Comment: Specsteve men Type: BLOOD SPECIMENOrdering Facility: [facility] Address: [address] [place] [address] Result Comment: The [place] Diabetes Association (ADA) provides guidance for cutoff [...] Standards of Medical Care in Diabetes 2016, [place] [employer]. Diabetes Care. 2016.39(Suppl 1). Performed By: #### 2 4362-6 ####[facility] [id number] [place] [address] [place] Phosphate [Mass/Vol] 2.4 mg/dL Low 2.7-4.8 [facility] Comment on above: Order Comment: Christopher hurd Type: BLOOD SPECIMENOrdering Facility: [facility] Address: [address] [place] [address] Performed By: #### 2 4362-6 ####[facility] [id number] [place] [address] [place] Potassium [Moles/Vol] 4.1 mmol/L Normal 3.7-5.1 [facility] Comment on above: Order Comment: Christopher hurd Type: BLOOD SPECIMENOrdering Facility: [facility] Address: [address] [place] [address] Performed By: #### 2 4362-6 ####[facility] [id number] [place] [address] [place] Sodium [Moles/Vol] 135 mmol/L Low 136-144 [facility] Comment on above: Order Comment: Speci men Type: BLOOD SPECIMENOrdering Facility: [facility] Address: [address] [place] [address] Performed By: #### 2 4362-6 ####[facility] [id number] [address] [place] Urea nitrogen [Mass/Vol] 20 mg/dL Normal 7-21 [facility] Comment on above: Order Comment: Speci men Type: BLOOD SPECIMENOrdering Facility: [facility] Address: [address] [place] [address] Performed By: #### 2 4362-6 ####[facility] [id number] [address] [place] ALLIED HEALTHon 05-14-2024 ALLIED HEALTH HNO ID: [id number] Author: YVONNE VICTOR Chaplain Student Service: Spiritual Care Author Type: Student Type: Allied Health Filed: 05/14/2024 13:17 Note Text: SPIRITUAL CARE ASSESSMENT SERVICE DATE: 05/14/2024 SERVICE TIME: 12:30 Visit with: Patient Length of visit (minutes): 30 Sabianist / Spirituality: Bakarian Reason: Referral from: Other [...] and is anxious to return to being [place] to her great grandchildren. Ms. Solomon would like a bible to use while she is her. We prayed together and I will return with a bible for her. SIGNATURE: Chaplain Jesus Ayoub PATIENT NAME: Jatin Solomon DATE: May 14, 2024 TIME: 1:11 PM PAGER/CONTACT #: [phone] [facility] ALLIED HEALTH HNO ID: [id number] Author: YVONNE VICTOR Chaplain Student Service: Spiritual [...] COPY. Normal [facility] CASE MANAGEMon 05-14-2024 CASE MANAGEM HNO ID: [id number] Author: ?, ?, ? Service: ? Author Type: ? Type: Care Mgt Progress Note Filed: 05/14/2024 16:27 Note Text: CARE MANAGEMENT PROGRESS NOTE SERVICE DATE: 05/14/2024 SERVICE TIME: 4:27 PM LOS: 3 days Discharge packet completed and dropped off by recycling assistant Topher White. Packet is missing AVS/DC forms, please reach out to catalytic case operator with any discharge related questions. SIGNATURE: Topher White PATIENT NAME: Jatin Solomon DATE: May 14, 2024 TIME: 4:27 PM Normal [facility] CASE MGT INIT Elena 2024 CASE MGT INIT TREY HNO ID: [id number] Author: CYNTHIA ORLANDO RN Service: ? Author Type: Registered Nurse Type: Care Mgt Initial Assessment Filed: 05/14/2024 17:16 Note Text: CARE MANAGEMENT: ASSESSMENT AND DISCHARGE PLAN SERVICE DATE: May 14, 2024 SERVICE TIME: 11:31 AM PCP: Bridget Swenson MD Primary Contact: Extended Emergency Contact Information Primary Emergency Contact: Martha Hdz Mobile Relation: Daughter Secondary Emergency Contact: Ana MaríaRogelio Mobile Relation: Grandchild Admission Status: Inpatient Insurance Provider: MEDICARE A AND B Discharge Planning requested by: Per Department Practice Potential [facility] Advance Directives Current Advance Directive: Living Will;Health Care Power of Client Delivery Specialist In Chart: No Boiler Operators Supervisor Attempted to Assist with AD Completion: Yes [...] Patient's Other Post-Acute Care Goal(s): Get Better [place] Explained: [place] of [place] Given: Yes Level of Care [...] on CPAP, osteoporosis, secondary hypothyroidism transferred from [facility] May 11, 2024 for ICH monitoring. [...] home from the garage. 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 Uses a walker to assist with ambulation. No prior oxygen. Uses a Bipap at night. Retired, manages own medications, does not drive. Family provides transportation. No financial concerns per patient. MARIA ESTHER planned for today. Skilled for SNF. Discussed with patient, and she requested referrals be sent to: [facility] in [place] and [facility] SNF. [facility] tasked to build and send referral. Await response. Medically ready for discharge tomorrow. Will need; accepting facility and transport arranged. No precert required. CM will follow. Update 5pm: patient has been accepted by [facility] for their rehab program. Both patient and medical team are in agreement. A bed will be available on Friday, 05/16. S transport set for 05/16/2024 at 2pm, trip #[id number] DC packet completed by [facility] and placed with patient's green chart. Nurse report number is [phone]. Patient updated on transport time for Friday. SIGNATURE: Cynthia Orlando RN PATIENT NAME: Jatin Solomon DATE: May 14, 2024 TIME: 11:31 AM Normal [facility] CBC panel Auto (Bld)on 05-14 Erythrocyte distribution width (RBC) [Ratio] 14.5 % Normal 11.5-15.0 [facility] Comment on above: Order Comment: Speci men Type: BLOOD SPECIMENOrdering Facility: [facility] Address: [address] [place] [address] Performed By: #### 5 8410-2 ####[facility] [id number] [place] [address] [place] Hematocrit (Bld) [Volume fraction] 33.7 % Low 36.0-46.0 [facility] Comment on above: Order Comment: Speci men Type: BLOOD SPECIMENOrdering Facility: [facility] Address: [address] [place] [address] Performed By: #### 5 8410-2 ####[facility] [id number] [place] [address] [place] Hemoglobin (Bld) [Mass/Vol] 10.5 g/dL Low 11.5-15.5 [facility] Comment on above: Order Comment: Speci men Type: BLOOD SPECIMENOrdering Facility: [facility] Address: [address] [place] [address] Performed By: #### 5 8410-2 ####[facility] [id number] [place] [address] [place] MCH (RBC) [Entitic mass] 28.8 pg Normal 26.0-34.0 [facility] Comment on above: Order Comment: Speci men Type: BLOOD SPECIMENOrdering Facility: [facility] Address: [address] [place] [address] Performed By: #### 5 8410-2 ####[facility] [id number] [place] [address] [place] MCHC (RBC) [Mass/Vol] 31.2 g/dL Normal 30.5-36.0 [facility] Comment on above: Order Comment: Speci men Type: BLOOD SPECIMENOrdering Facility: [facility] Address: [address] [place] [address] Performed By: #### 5 8410-2 ####[facility] [id number] [place] [address] [place] MCV (RBC) [Entitic vol] 92.6 fL Normal 80.0-100.0 C [facility] Comment on above: Order Comment: Speci men Type: BLOOD SPECIMENOrdering Facility: [facility] Address: [address] [place] [address] Performed By: #### 5 8410-2 ####[facility] [id number] [place] [address] [place] Nucleated RBC (Bld) [#/Vol] 10*3/uL Normal <0.01 [facility] Comment on above: Order Comment: Speci men Type: BLOOD SPECIMENOrdering Facility: [facility] Address: [address] [place] [address] Performed By: #### 5 8410-2 ####[facility] LABIA [id number] [place] [address] [place] Platelet mean volume (Bld) [Entitic vol] 9.3 fL Normal 9.0-12.7 [facility] Comment on above: Order Comment: Speci men Type: BLOOD SPECIMENOrdering Facility: [facility] Address: [address] [place] [address] Performed By: #### 5 8410-2 ####[facility] [id number] [place] [address] [place] Platelets (Bld) [#/Vol] 336 10*3/uL Normal 150-400 [facility] Comment on above: Order Comment: Speci men Type: BLOOD SPECIMENOrdering Facility: [facility] Address: [address] [place] [address] Performed By: #### 5 8410-2 ####[facility] [id number] [place] [address] [place] RBC (Bld) [#/Vol] 3.64 10*6/uL Low 3.90-5.20 [facility] Comment on above: Order Comment: Speci men Type: BLOOD SPECIMENOrdering Facility: [facility] Address: [address] [place] [address] Performed By: #### 5 8410-2 ####[facility] [id number] [place] [address] [place] WBC (Bld) [#/Vol] 6.22 10*3/uL Normal 3.70-11.00 [facility] Comment on above: Order Comment: Speci men Type: BLOOD SPECIMENOrdering Facility: [facility] Address: [address] [place] [address] Performed By: #### 5 8410-2 ####[facility] [id number] [place] [address] [place] CNOVon 05-14-2024 CNOV Office Visit (CAFLMN) Jatin SOLOMON ([id number]) 1935 F Date Time Provider Department 05/14/24 [...] Upset Comments: States had GI bleed ADHES. IJIX-FTGE-IHNXCSOPIR UM 12/09/2007 BEETS 05/28/2011 2 - Rash [...] 02/19/2012 Insomnia, unspecified [G47.00] 02/11/2007 02/19/2012 NIGHTMARE [[id number]] 02/11/2007 04/12/2014 LUMBAR RADICULITIS [[id number]] 02/11/2007 BACKACHE NOS [M54.9] 02/17/2007 MITRAL INSUFFICIENCY [...] included)... Normal [facility] ECHO TRANSESOPHAGEALon 05-14 ECHO TRANSESOPHAGEAL Echocardiography Report: Transesophageal Echo [facility] J1-5 Date of service: 05/14/2024 11:28:35 AM SE[facility] Ordering physician: CARI WONG Indication: ?Endocarditis Technologist: [...] * * Final * * * CC [employer] [facility] : [id number] DynamicsSISUID Normal [facility] NURSING PROGon 05-14-2024 NURSING PROG HNO ID: [id number] Author: DAMARI WIGGINS, ALBERT Service: ? Author [...] CARDIOLOGY Normal [facility] NURSING PROG HNO ID: [id number] Author: ALBERTO SANTANA RN Service: ? Author Type: Registered Nurse Type: Nursing Progress Note Filed: 05/14/2024 08:52 Note Text: Transfer Note: PATIENT NAME: Jatin Solomon Patient Location: [place] [address] Room: [place] [address] Patient transferred into room/unit [facility] in stable condition. Actions taken: No futher actions taken at this time. Will continue to monitor and check with patient. Normal [facility] PT panel Coag (PPP)on 2024 INR Coag (PPP) [Relative time] 1.0 {INR} Normal 0.9-1.3 [facility] Comment on above: Order Comment: Speci men Type: BLOOD SPECIMENOrdering Facility: [facility] Address: [address] [place] [address] Result Comment: Nathalie min K Antagonist (VKA) Therapeutic Range: INR 2 to 3 (Target INR of 2.5) Note: For patients treated with VKA drugs, such as warfarin, the [place] [employer] 2012 Guideline recommends [...] Chest 2012, 141:7S-47S Cam RA, et al. [facility] 2017, 70: 252-289 Performed By: #### 3 4528-0 ####[facility] LABIA [id number] [place] [address] [place] PT Coag (PPP) [Time] 11.1 s Normal 9.7-13.0 [facility] Comment on above: Order Comment: Speci men Type: BLOOD SPECIMENOrdering Facility: [facility] Address: [address] [place] [address] Performed By: #### 3 4528-0 ####[facility] LABIA [id number] [place] [address] [place] Renal function 2000 panelon 05-14-2024 Albumin [Mass/Vol] 3.4 g/dL Low 3.9-4.9 [facility] Comment on above: Order Comment: Speci men Type: BLOOD SPECIMENOrdering Facility: [facility] Address: [address] [place] [address] Performed By: #### 2 4362-6 ####[facility]IA [id number] [place] [address] [place] Anion gap [Moles/Vol] 12 mmol/L Normal 8-15 [facility] Comment on above: Order Comment: Speci men Type: BLOOD SPECIMENOrdering Facility: [facility] Address: [address] [place] [id number] Performed By: #### 2 4362-6 ####[facility]CL[facility] [id number] [address] [address] [place] Calcium [Mass/Vol] 8.5 mg/dL Normal 8.5-10.2 [facility] Comment on above: Order Comment: Speci men Type: BLOOD SPECIMENOrdering Facility: [facility] Address: [address] [place], [place] [address] Performed By: #### 2 4362-6 ####[facility]CL[facility] [id number] [place] [address] [place] Chloride [Moles/Vol] 103 mmol/L Normal 98-107 [facility] Comment on above: Order Comment: Speci men Type: BLOOD SPECIMENOrdering Facility: [facility] Address: [address] [place] [address] Performed By: #### 2 4362-6 ####[facility]CL[facility] [id number] [place] [address] [place] CO2 [Moles/Vol] 22 mmol/L Normal 22-30 [facility] Comment on above: Order Comment: Speci men Type: BLOOD SPECIMENOrdering Facility: [facility] Address: [address] [place], [place] [address] Performed By: #### 2 4362-6 ####[facility]CL[facility] [id number] [facility] [place] [id number] [place] Creatinine [Mass/Vol] 0.89 mg/dL Normal 0.58-0.96 [facility] Comment on above: Order Comment: Speci men Type: BLOOD SPECIMENOrdering Facility: [facility] Address: [address] [place], [place] [address] Performed By: #### 2 4362-6 ####[facility]CL[facility] [id number] [place] [address] [place] Creatinine and Glomerular filtration rate.predicted panel (S/P/Bld) 62 mL/min/1.73m??? Normal >=60 [facility] Comment on above: Order Comment: Christopher hurd Type: BLOOD SPECIMENOrdering Facility: [facility] Address: [address] [place] [address] Result Comment: Michael mated Glomerular Filtration Rate [...] actual GFR. Performed By: #### 2 4362-6 ####[facility]CL[facility] [id number] [place] [address] [place] Glucose [Mass/Vol] 91 mg/dL Normal 74-99 [facility] Comment on above: Order Comment: Christopher hurd Type: BLOOD SPECIMENOrdering Facility: [facility] Address: [address] [place] [address] Result Comment: The [place] [employer] (ADA) provides guidance for cutoff [...] Standards of Medical Care in Diabetes 2016, [place] [employer]. Diabetes Care. 2016.39(Suppl 1). Performed By: #### 2 4362-6 ####[facility]CL[facility] [id number] [place] [address] [place] Phosphate [Mass/Vol] 4.0 mg/dL Normal 2.7-4.8 [facility] Comment on above: Order Comment: Speci men Type: BLOOD SPECIMENOrdering Facility: [facility] Address: [address] [place] [address] Performed By: #### 2 4362-6 ####[facility]CL[facility] [id number] [place] [address] [place] Potassium [Moles/Vol] 4.6 mmol/L Normal 3.7-5.1 [facility] Comment on above: Order Comment: Speci men Type: BLOOD SPECIMENOrdering Facility: [facility] Address: [address] [place] [address] Performed By: #### 2 4362-6 ####[facility]CL[facility] [id number] [place] [address] [place] Sodium [Moles/Vol] 137 mmol/L Normal 136-144 [facility] Comment on above: Order Comment: Speci men Type: BLOOD SPECIMENOrdering Facility: [facility] Address: [address] [place] [address] Performed By: #### 2 4362-6 ####[facility]CL[facility] [id number] [place] [address] [place] Urea nitrogen [Mass/Vol] 23 mg/dL High 7-21 [facility] Comment on above: Order Comment: Speci men Type: BLOOD SPECIMENOrdering Facility: [facility] Address: [address] [place] [address] Performed By: #### 2 4362-6 ####[facility]CL[facility] [id number] [place] [address] [place] THERAPY NTon 05-14-2024 THERAPY NT HNO ID: [id number] Author: MARCELLA TERRY, PT, DPT Service: Physical Therapy Author Type: Physical Therapist Type: Therapy (PT/OT/Speech/Resp) Filed: 05/14/2024 16:13 Note Text: PHYSICAL THERAPY MISSED VISIT SERVICE DATE: 05/14/2024 SERVICE TIME: 1402 ROOM: [place] [address] Patient not seen due to Declined to Participate. Pt waiting for lunch, requesting PT to return later. PT will continue to follow and re-attempt as able. SIGNATURE: Marcella Terry PT, DPT PATIENT NAME: Jatin Solomon DATE: May 14, 2024 TIME: 4:13 PM Normal [facility] THERAPY NT HNO ID: [id number] Author: ROLANDA WEEKS, OTR/L Service: Occupational Therapy Author Type: Occupational Therapist Type: Therapy (PT/OT/Speech/Resp) Filed: 05/14/2024 10:08 Note Text: Occupational Therapy Evaluation Summary SERVICE DATE: 05/14/2024 SERVICE TIME: 08 to 0956 ROOM: [place] [address] OT 6 Clicks Score: 16 DISCHARGE RECOMMENDATIONS [...] Fall Risk CURRENT HOSPITAL COURSE transferred from [facility] May 11, 2024 with RF cortical [...] I just don't want to lose my independence COGNITION Psychosocial Factors Impacting Care: Anxiety/Stress, Availability/Quality of Support Systems, Depression/Isolation , Resiliency, Maladaptive Thinking/Behaviors Cog 6 Start of Session Total Points (Max Score = 24): 23 (05/14/24) Cog 6 End of Session Total Points (Max Score = 24): 24 (05/14/24) Short Blessed Final Score: 4 (05/14/24) Administered the Short Blessed Test (Blessed Hxxgnvvnpsu-Ihofsv-N oncentration Test) was derived from the longer [...] symptoms and signs-other TREATMENT INTERVENTIONS Evaluation, Self Long Term Management (27348), Neuromuscular Reeducation (75463) Timed Code Treatment (minutes): 55 Skilled Treatment [...] included)... Normal [facility] ALLIED HEALTHon 05-13-2024 ALLIED HEALTH HNO ID: [id number] Author: AYESHA PAEZ MRI Tech Service: Radiology [...] PATIENT PRESENTS WITH AN IMPLANTABLE OR ATTACHED CLOTHES SEPARATOR: No RADIOLOGY DEPARTMENT: MR; Exam(s) Completed: Head: Routine Brain PERIPHERAL IV DATA: Inpatient: see LDA documentation SIGNED BY: LE Whitman May 13, 2024 9:02 AM Normal [facility] Bacteria Bld Culton 05-13-19 25 Bacteria identified Cx Nom (Bld) CULTURE, BLOOD: No growth 5 days Normal [facility] Comment on above: Performed By: #### 6 00-7 ####[facility]CL[facility] [id number] [place] [address] [place] CBC W Auto Differential pane l (Bld)on 05-13-2024 Basophils (Bld) [#/Vol] 0.05 10*3/uL Normal <0.11 [facility] Comment on above: Order Comment: Speci men Type: BLOOD SPECIMENOrdering Facility: [facility] Address: [address] [place] [address] Performed By: #### 5 7021-8 ####[facility]CL[facility] [id number] [place] [address] [place] Basophils/100 WBC (Bld) 0.7 % Normal [facility] Comment on above: Order Comment: Speci men Type: BLOOD SPECIMENOrdering Facility: [facility] Address: [address] [place] [address] Performed By: #### 5 7021-8 ####[facility]CL[facility] [id number] [place] [address] [place] Differential cell count method Nom (Bld) Auto Normal [facility] Comment on above: Order Comment: Speci men Type: BLOOD SPECIMENOrdering Facility: [facility] Address: [address] [place] [address] Performed By: #### 5 7021-8 ####[facility]CL[facility] [id number] [place] [address] [place] Eosinophils (Bld) [#/Vol] 0.32 10*3/uL Normal <0.46 [facility] Comment on above: Order Comment: Speci men Type: BLOOD SPECIMENOrdering Facility: [facility] Address: [address] [place] [address] Performed By: #### 5 7021-8 ####[facility]CL[facility] [id number] [place] [address] [place] Eosinophils/100 WBC (Bld) 4.7 % Normal [facility] Comment on above: Order Comment: Speci men Type: BLOOD SPECIMENOrdering Facility: [facility] Address: [address] [place] [address] Performed By: #### 5 7021-8 ####[facility]CL[facility] [id number] [place] [address] [place] Erythrocyte distribution width (RBC) [Ratio] 14.5 % Normal 11.5-15.0 [facility] Comment on above: Order Comment: Speci men Type: BLOOD SPECIMENOrdering Facility: [facility] Address: [address] [place] [address] Performed By: #### 5 7021-8 ####[facility] LABIA [id number] [place] [address] [place] Hematocrit (Bld) [Volume fraction] 33.3 % Low 36.0-46.0 [facility] Comment on above: Order Comment: Speci men Type: BLOOD SPECIMENOrdering Facility: [facility] Address: [address] [place] [address] Performed By: #### 5 7021-8 ####[facility]CL[facility] [id number] [place] [address] [place] Hemoglobin (Bld) [Mass/Vol] 10.4 g/dL Low 11.5-15.5 [facility] Comment on above: Order Comment: Speci men Type: BLOOD SPECIMENOrdering Facility: [facility] Address: [address] [place] [address] Performed By: #### 5 7021-8 ####[facility] LABIA [id number] [place] [address] [place] Immature granulocytes (Bld) [#/Vol] 10*3/uL Normal <0.10 [facility] Comment on above: Order Comment: Speci men Type: BLOOD SPECIMENOrdering Facility: [facility] Address: [address] [place] [address] Performed By: #### 5 7021-8 ####[facility]CL[facility] [id number] [place] [address] [place] Immature granulocytes/100 WBC (Bld) 0.3 % Normal [facility] Comment on above: Order Comment: Speci men Type: BLOOD SPECIMENOrdering Facility: [facility] Address: [address] [place] [address] Performed By: #### 5 7021-8 ####[facility]CL[facility] [id number] [place] [address] [place] Lymphocytes (Bld) [#/Vol] 1.57 10*3/uL Normal 1.00-4.00 [facility] Comment on above: Order Comment: Speci men Type: BLOOD SPECIMENOrdering Facility: [facility] Address: [address] [place] [address] Performed By: #### 5 7021-8 ####[facility]CL[facility] [id number] [place] [address] [place] Lymphocytes/100 WBC (Bld) 23.3 % Normal [facility] Comment on above: Order Comment: Speci men Type: BLOOD SPECIMENOrdering Facility: [facility] Address: [address] [place] [address] Performed By: #### 5 7021-8 ####[facility]CL[facility] [id number] [place] [address] [place] MCH (RBC) [Entitic mass] 28.7 pg Normal 26.0-34.0 [facility] Comment on above: Order Comment: Speci men Type: BLOOD SPECIMENOrdering Facility: [facility] Address: [address] [place] [address] Performed By: #### 5 7021-8 ####[facility]CL[facility] [id number] [place] [address] [place] MCHC (RBC) [Mass/Vol] 31.2 g/dL Normal 30.5-36.0 [facility] Comment on above: Order Comment: Speci men Type: BLOOD SPECIMENOrdering Facility: [facility] Address: [address] [place] [address] Performed By: #### 5 7021-8 ####[facility]CL[facility] [id number] [place] [address] [place] MCV (RBC) [Entitic vol] 92.0 fL Normal 80.0-100.0 C [facility] Comment on above: Order Comment: Speci men Type: BLOOD SPECIMENOrdering Facility: [facility] Address: [address] [place] [address] Performed By: #### 5 7021-8 ####[facility]CL[facility] [id number] [place] [address] [place] Monocytes (Bld) [#/Vol] 0.74 10*3/uL Normal <0.87 [facility] Comment on above: Order Comment: Speci men Type: BLOOD SPECIMENOrdering Facility: [facility] Address: [address] [place] [address] Performed By: #### 5 7021-8 ####[facility]CL[facility] [id number] [place] [address] [place] Monocytes/100 WBC (Bld) 11.0 % Normal [facility] Comment on above: Order Comment: Speci men Type: BLOOD SPECIMENOrdering Facility: [facility] Address: [address] [place] [address] Performed By: #### 5 7021-8 ####[facility]CL[facility] [id number] [place] [address] [place] Neutrophils (Bld) [#/Vol] 4.04 10*3/uL Normal 1.45-7.50 [facility] Comment on above: Order Comment: Speci men Type: BLOOD SPECIMENOrdering Facility: [facility] Address: [address] [place] [address] Performed By: #### 5 7021-8 ####[facility] [id number] [place] [address] [place] Neutrophils/100 WBC (Bld) 60.0 % Normal [facility] Comment on above: Order Comment: Speci men Type: BLOOD SPECIMENOrdering Facility: [facility] Address: [address] [place] [address] Performed By: #### 5 7021-8 ####[facility] [id number] [place] [address] [place] Nucleated RBC (Bld) [#/Vol] 10*3/uL Normal <0.01 [facility] Comment on above: Order Comment: Speci men Type: BLOOD SPECIMENOrdering Facility: [facility] Address: [address] [place] [address] Performed By: #### 5 7021-8 ####[facility] [id number] [place] [address] [place] Nucleated RBC/100 WBC (Bld) [Ratio] 0.0 /100 WBC Normal [facility] Comment on above: Order Comment: Speci men Type: BLOOD SPECIMENOrdering Facility: [facility] Address: [address] [place] [address] Performed By: #### 5 7021-8 ####[facility] [id number] [place] [address] [place] Platelet mean volume (Bld) [Entitic vol] 9.4 fL Normal 9.0-12.7 [facility] Comment on above: Order Comment: Speci men Type: BLOOD SPECIMENOrdering Facility: [facility] Address: [address] [place] [address] Performed By: #### 5 7021-8 ####[facility]IA [id number] [place] [address] [place] Platelets (Bld) [#/Vol] 334 10*3/uL Normal 150-400 [facility] Comment on above: Order Comment: Speci men Type: BLOOD SPECIMENOrdering Facility: [facility] Address: [address] [place] [address] Performed By: #### 5 7021-8 ####[facility]CL[facility] [id number] [place] [id number] [place] RBC (Bld) [#/Vol] 3.62 10*6/uL Low 3.90-5.20 [facility] Comment on above: Order Comment: Speci men Type: BLOOD SPECIMENOrdering Facility: [facility] Address: [address] [place] [address] Performed By: #### 5 7021-8 ####[facility] [id number] [place] [id number] [place] WBC (Bld) [#/Vol] 6.74 10*3/uL Normal 3.70-11.00 [facility] Comment on above: Order Comment: Speci men Type: BLOOD SPECIMENOrdering Facility: [facility] Address: [address] [place] [address] Performed By: #### 5 7021-8 ####[facility] [id number] [place] [address] [place] CONSULT PROGon 05-13-2024 CONSULT PROG HNO ID: [id number] Author: ESTER MIR MD Service: Neurology Stroke Author Type: Resident Type: Consult Progress Note Filed: 05/13/2024 17:48 Note Text: Attestation signed by Latanya Veras MD at 05/13/2024 8:28 PM [facility] STAFF PHYSICIAN NOTE OF PERSONAL INVOLVEMENT IN [...] day. This note was partially generated using [employer] voice recognition system, and there may be [...] included)... Normal [facility] Comprehensive metabolic 2000 panelon 05-13-2024 Albumin [Mass/Vol] 3.5 g/dL Low 3.9-4.9 [facility] Comment on above: Order Comment: Speci men Type: BLOOD SPECIMENOrdering Facility: [facility] Address: [address] [place] [address] Performed By: #### 2 276-4, 2777-1, 38146-1, 77145-8, 41277-9 ####[facility] [id number] [place] [address] [place] ALP [Catalytic activity/Vol] 61 U/L Normal 34-123 [facility] Comment on above: Order Comment: Speci men Type: BLOOD SPECIMENOrdering Facility: [facility] Address: [address] [place] [address] Performed By: #### 2 276-4, 2777-1, 72987-3, 86570-4, 40306-6 ####[facility] [id number] [place] [address] [place] ALT [Catalytic activity/Vol] 11 U/L Normal 7-38 [facility] Comment on above: Order Comment: Speci men Type: BLOOD SPECIMENOrdering Facility: [facility] Address: [address] [place] [address] Performed By: #### 2 276-4, 2777-1, 31445-7, 12181-1, 40700-5 ####[facility]CL[facility] [id number] [address] [address] [place] Anion gap [Moles/Vol] 11 mmol/L Normal 8-15 [facility] Comment on above: Order Comment: Speci men Type: BLOOD SPECIMENOrdering Facility: [facility] Address: [address] [place] [address] Performed By: #### 2 276-4, 2777-1, 37798-3, 91804-5, 27852-3 ####[facility] [id number] [place] [id number] [place] AST [Catalytic activity/Vol] 17 U/L Normal 13-35 [facility] Comment on above: Order Comment: Speci men Type: BLOOD SPECIMENOrdering Facility: [facility] Address: [address] [place] [address] Performed By: #### 2 276-4, 2777-1, 82382-8, 88947-5, 37515-6 ####[facility] [id number] [place] [address] [place] Bilirubin [Mass/Vol] 0.5 mg/dL Normal 0.2-1.3 [facility] Comment on above: Order Comment: Speci men Type: BLOOD SPECIMENOrdering Facility: [facility] Address: [address] [place] [address] Performed By: #### 2 276-4, 2777-1, 39886-3, 93235-6, 73314-5 ####[facility] [id number] [address] [address] [place] Calcium [Mass/Vol] 8.6 mg/dL Normal 8.5-10.2 [facility] Comment on above: Order Comment: Speci men Type: BLOOD SPECIMENOrdering Facility: [facility] Address: [address] [place] [address] Result Comment: Resu lt rechecked. Performed By: #### 2 276-4, 2777-1, 00723-3, 71755-9, 67253-2 ####[facility] [id number] [place] [id number] [place] Chloride [Moles/Vol] 103 mmol/L Normal 98-107 [facility] Comment on above: Order Comment: Speci men Type: BLOOD SPECIMENOrdering Facility: [facility] Address: [address] [place] [address] Performed By: #### 2 276-4, 2777-1, 36222-7, 89279-4, 75969-2 ####[facility] [id number] [place] [address] [place] CO2 [Moles/Vol] 26 mmol/L Normal 22-30 [facility] Comment on above: Order Comment: Speci men Type: BLOOD SPECIMENOrdering Facility: [facility] Address: [address] [place] [address] Performed By: #### 2 276-4, 2777-1, 90952-0, 19107-2, 35278-1 ####[facility] [id number] [place] [address] [place] Creatinine [Mass/Vol] 0.87 mg/dL Normal 0.58-0.96 [facility] Comment on above: Order Comment: Speci men Type: BLOOD SPECIMENOrdering Facility: [facility] Address: [address] [place] [address] Performed By: #### 2 276-4, 2777-1, 10279-9, 73755-2, 19644-3 ####[facility] [id number] [place] [id number] [place] Creatinine and Glomerular filtration rate.predicted panel (S/P/Bld) 64 mL/min/1.73m??? Normal >=60 [facility] Comment on above: Order Comment: Speci men Type: BLOOD SPECIMENOrdering Facility: [facility] Address: [address] [place] [id number] Result Comment: Michael mated Glomerular Filtration Rate [...] GFR. Performed By: #### 2 276-4, 2777-1, 43531-6, 78553-6, 26327-3 ####[facility] [id number] [place] [id number] [place] Glucose [Mass/Vol] 99 mg/dL Normal 74-99 [facility] Comment on above: Order Comment: Christopher hurd Type: BLOOD SPECIMENOrdering Facility: [facility] Address: [address] [place] [address] Result Comment: The [place] [employer] (ADA) provides guidance for cutoff [...] Standards of Medical Care in Diabetes 2016, [place] [employer]. Diabetes Care. 2016.39(Suppl 1). Performed By: #### 2 276-4, 2777-1, 24507-0, 00144-8, 23189-8 ####[facility] [id number] [place] [id number] [place] Potassium [Moles/Vol] 4.4 mmol/L Normal 3.7-5.1 [facility] Comment on above: Order Comment: Christopher hurd Type: BLOOD SPECIMENOrdering Facility: [facility] Address: [address] [place], [place] [address] Performed By: #### 2 276-4, 2777-1, 91187-9, 32323-6, 35236-0 ####[facility] [id number] [address] [address] [place] Protein [Mass/Vol] 6.1 g/dL Low 6.3-8.0 [facility] Comment on above: Order Comment: Speci men Type: BLOOD SPECIMENOrdering Facility: [facility] Address: [address] [place], [place] [address] Performed By: #### 2 276-4, 2777-1, 73740-2, 79946-5, 13466-9 ####[facility] [id number] [place] [address] [place] Sodium [Moles/Vol] 140 mmol/L Normal 136-144 [facility] Comment on above: Order Comment: Speci men Type: BLOOD SPECIMENOrdering Facility: [facility] Address: [address] [place], [place] [address] Performed By: #### 2 276-4, 2777-1, 16683-3, 44163-6, 66893-9 ####[facility] [id number] [place] [address] [place] Urea nitrogen [Mass/Vol] 25 mg/dL High 7-21 [facility] Comment on above: Order Comment: Speci men Type: BLOOD SPECIMENOrdering Facility: [facility] Address: [address] [place], [place] [address] Performed By: #### 2 276-4, 2777-1, 14475-0, 18703-1, 40343-4 ####[facility] [id number] [address] [address] [place] ECHOon 05-13-2024 Echocardiography Echocardiography Report: Transthoracic Echo [facility] Bedside Date of service: 05/13/2024 11:56:30 AM [facility] Ordering physician: DUGLAS KIM Indication: Subarachnoid hemorrhage [...] * * * Final * * * [employer] : [id number] UID Normal [facility] Ferritin SerPl-mCncon 2024 Ferritin [Mass/Vol] 137.0 ng/mL Normal 14.7-205.1 [facility] Comment on above: Order Comment: Speci men Type: BLOOD SPECIMENOrdering Facility: [facility] Address: [address] [place] [address] [place] [address] Performed By: #### 2 276-4, 1846-1, 35492-3, 43002-9, 33885-5 ####[facility] [id number] [address] [address] [place] Iron and Iron binding capaci ty panelon 05-13-2024 Iron [Mass/Vol] 57 ug/dL Normal 41-186 [facility] Comment on above: Order Comment: Speci men Type: BLOOD SPECIMENOrdering Facility: [facility] Address: [address] [place] [address] Performed By: #### 2 276-4, 2777-1, 47608-7, 01343-8, 01799-1 ####[facility] [id number] [place] [address] [place] Iron binding capacity [Mass/Vol] 244 ug/dL Normal 232-386 [facility] Comment on above: Order Comment: Speci men Type: BLOOD SPECIMENOrdering Facility: [facility] Address: [address] [place] [address] Performed By: #### 2 276-4, 2777-1, 48527-9, 80133-2, 20365-8 ####[facility] [id number] [place] [address] [place] Iron/TIBC [Molar ratio] 23.4 % Normal 15.0-57.0 [facility] Comment on above: Order Comment: Speci men Type: BLOOD SPECIMENOrdering Facility: [facility] Address: [address] [place] [address] Performed By: #### 2 276-4, 2777-1, 13915-6, 39353-8, 64803-9 ####[facility] [id number] [place] [id number] [place] MRI BRAIN WO/W [...] - Subarachnoid hemorrhage (SAH), follow up - [id number] - - - Subarachnoid hemorrhage (SAH), follow [...] matter findings reflecting sequela of microvascular ischemia. Rn Paralegal: CLINT Transcribe Date/Time: May 13 2024 9:28A Dictated by : SVETLANA SOLOMON MD This examination was interpreted and the report reviewed and electronically signed by: SVETLANA SOLOMON MD on May 13 2024 9:42AM EST [id number] CN Normal [facility] Magnesium SerPl-mCncon 05-13 Magnesium [Mass/Vol] 2.8 mg/dL High 1.7-2.3 [facility] Comment on above: Order Comment: Speci men Type: BLOOD SPECIMENOrdering Facility: [facility] Address: [address] [place] [address] Result Comment: Resu lt rechecked. Performed By: #### 2 276-4, 2777-1, 42458-6, 65247-8, 00463-4 ####[facility] [id number] [address] [place] NURSING PROGon 05-13-2024 NURSING PROG HNO ID: [id number] Author: COLE SHERWOOD RN Service: Radiology Author [...] AM Normal [facility] NUTRITIONon 05-13-2024 NUTRITION HNO ID: [id number] Author: SAWYER MEDLEY RD Service: Nutrition Therapy [...] Weight Type: Admit weight Estimated kilocalorie needs: 0841-4761 Calorie Calculation Method: 20-25 kcals/kg Estimated protein [...] PM Normal [facility] PT panel Coag (PPP)on 2024 INR Coag (PPP) [Relative time] 1.0 {INR} Normal 0.9-1.3 [facility] Comment on above: Order Comment: Speci men Type: BLOOD SPECIMENOrdering Facility: [facility] Address: [address] [place] [address] Result Comment: Nathalie min K Antagonist (VKA) Therapeutic Range: INR 2 to 3 (Target INR of 2.5) Note: For patients treated with VKA drugs, such as warfarin, the [place] [employer] 2012 Guideline recommends [...] Chest 2012, 141:7S-47S Cam RA, et al. [facility] 2017, 70: 252-289 Performed By: #### 3 4528-0, 91840-3 ####[facility] [id number] [address] [place] PT Coag (PPP) [Time] 11.3 s Normal 9.7-13.0 [facility] Comment on above: Order Comment: Speci men Type: BLOOD SPECIMENOrdering Facility: [facility] Address: [address] [place] [address] Performed By: #### 3 4528-0, 31418-0 ####[facility] [id number] [place] [address] [facility] Phosphate SerPl-mCncon 05-13 Phosphate [Mass/Vol] 4.3 mg/dL Normal 2.7-4.8 [facility] Comment on above: Order Comment: Speci men Type: BLOOD SPECIMENOrdering Facility: [facility] Address: [address] [place] [address] Performed By: #### 2 276-4, 2777-1, 38548-7, 84796-1, 73515-5 ####[facility] [id number] [place] [address] [facility] THERAPY NTon 05-13-2024 THERAPY NT HNO ID: [id number] Author: LIANA BLANCO OT/Preet Service: Occupational Therapy Author Type: Occupational Therapist Type: Therapy (PT/OT/Speech/Resp) Filed: 05/13/2024 15:04 Note Text: OCCUPATIONAL THERAPY MISSED VISIT SERVICE DATE: 05/13/2024 SERVICE TIME: 1048 ROOM: [place] [address] Patient not seen due to Patient Not Available. 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 [...] Fall Risk CURRENT HOSPITAL COURSE transferred from [facility] May 11, 2024 with RF cortical [...] DIAGNOSIS Reduced mobility-other TREATMENT INTERVENTIONS Therapeutic Activity (75993), Gait Training (04557) Timed Code Treatment (minutes): 38 Skilled Treatment [...] both sides with cues. 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 Rn Paralegal: [facility] Transcribe Date/Time: May 13 2024 2:23P Dictated by : QUINTIN MORA MD This examination was interpreted and the report reviewed and electronically signed by: QUINTIN MORA MD on May 13 2024 2:41PM EST [id number] CN Normal [facility] XR SHOULDER 2V AP/TRUE AP LT on [...] calcifications are noted. IMPRESSION: Posttraumatic degenerative changes. Rn Paralegal: [facility] Transcribe Date/Time: May 13 2024 7:41P Dictated by : PRIYANKA CHAMORRO MD This examination was interpreted and the report reviewed and electronically signed by: PRIYANKA CHAMORRO MD on May 13 2024 7:43PM EST [id number] CN Normal [facility] aPTT PPPon 05-13-2024 aPTT Coag (PPP) [Time] 28.5 s Normal 23.0-32.4 [facility] Comment on above: Order Comment: Speci men Type: BLOOD SPECIMENOrdering Facility: [facility] Address: [address] [place] [address] Performed By: #### 3 4528-0, 60355-3 ####[facility] [id number] [place] [address] [place] Bacteria Bld Culton 05-12-19 25 Bacteria identified Cx Nom (Bld) CULTURE, BLOOD: No growth 5 days Normal [facility] Comment on above: Performed By: #### 6 00-7 ####[facility] [id number] [place] [address] [place] CBC W Auto Differential pane l (Bld)on 05-12-2024 Basophils (Bld) [#/Vol] 0.06 10*3/uL Normal <0.11 [facility] Comment on above: Order Comment: Speci men Type: BLOOD SPECIMENOrdering Facility: [facility] Address: [address] [place] [address] Performed By: #### 5 7021-8 ####[facility] [id number] [place] [address] [place] Basophils/100 WBC (Bld) 0.7 % Normal [facility] Comment on above: Order Comment: Speci men Type: BLOOD SPECIMENOrdering Facility: [facility] Address: [address] [place] [address] Performed By: #### 5 7021-8 ####[facility] [id number] [address] [place] Differential cell count method Nom (Bld) Auto Normal [facility] Comment on above: Order Comment: Speci men Type: BLOOD SPECIMENOrdering Facility: [facility] Address: [address] [place] [address] Performed By: #### 5 7021-8 ####[facility] [id number] [place] [address] [place] Eosinophils (Bld) [#/Vol] 0.03 10*3/uL Normal <0.46 [facility] Comment on above: Order Comment: Speci men Type: BLOOD SPECIMENOrdering Facility: [facility] Address: [address] [place] [address] Performed By: #### 5 7021-8 ####[facility] [id number] [place] [address] [place] Eosinophils/100 WBC (Bld) 0.4 % Normal [facility] Comment on above: Order Comment: Speci men Type: BLOOD SPECIMENOrdering Facility: [facility] Address: [address] [place] [address] Performed By: #### 5 7021-8 ####[facility] [id number] [place] [address] [place] Erythrocyte distribution width (RBC) [Ratio] 14.0 % Normal 11.5-15.0 [facility] Comment on above: Order Comment: Speci men Type: BLOOD SPECIMENOrdering Facility: [facility] Address: [address] [place] [address] Performed By: #### 5 7021-8 ####[facility] [id number] [place] [address] [place] Hematocrit (Bld) [Volume fraction] 35.0 % Low 36.0-46.0 [facility] Comment on above: Order Comment: Speci men Type: BLOOD SPECIMENOrdering Facility: [facility] Address: [address] [place] [address] Performed By: #### 5 7021-8 ####[facility] [id number] [place] [address] [place] Hemoglobin (Bld) [Mass/Vol] 11.4 g/dL Low 11.5-15.5 [facility] Comment on above: Order Comment: Speci men Type: BLOOD SPECIMENOrdering Facility: [facility] Address: [address] [place] [address] Performed By: #### 5 7021-8 ####[facility] [id number] [place] [address] [place] Immature granulocytes (Bld) [#/Vol] 0.04 10*3/uL Normal <0.10 [facility] Comment on above: Order Comment: Speci men Type: BLOOD SPECIMENOrdering Facility: [facility] Address: [address] [place] [address] Performed By: #### 5 7021-8 ####[facility] [id number] [place] [address] [place] Immature granulocytes/100 WBC (Bld) 0.5 % Normal [facility] Comment on above: Order Comment: Speci men Type: BLOOD SPECIMENOrdering Facility: [facility] Address: [address] [place] [address] Performed By: #### 5 7021-8 ####[facility] [id number] [place] [address] [place] Lymphocytes (Bld) [#/Vol] 1.38 10*3/uL Normal 1.00-4.00 [facility] Comment on above: Order Comment: Speci men Type: BLOOD SPECIMENOrdering Facility: [facility] Address: [address] [place] [address] Performed By: #### 5 7021-8 ####[facility] [id number] [place] [address] [place] Lymphocytes/100 WBC (Bld) 17.2 % Normal [facility] Comment on above: Order Comment: Speci men Type: BLOOD SPECIMENOrdering Facility: [facility] Address: [address] [place] [address] Performed By: #### 5 7021-8 ####[facility] [id number] [place] [address] [place] MCH (RBC) [Entitic mass] 28.8 pg Normal 26.0-34.0 [facility] Comment on above: Order Comment: Speci men Type: BLOOD SPECIMENOrdering Facility: [facility] Address: [address] [place] [address] Performed By: #### 5 7021-8 ####[facility] [id number] [place] [address] [place] MCHC (RBC) [Mass/Vol] 32.6 g/dL Normal 30.5-36.0 [facility] Comment on above: Order Comment: Speci men Type: BLOOD SPECIMENOrdering Facility: [facility] Address: [address] [place] [address] Performed By: #### 5 7021-8 ####[facility] [id number] [place] [address] [place] MCV (RBC) [Entitic vol] 88.4 fL Normal 80.0-100.0 C [facility] Comment on above: Order Comment: Speci men Type: BLOOD SPECIMENOrdering Facility: [facility] Address: [address] [place] [address] Performed By: #### 5 7021-8 ####[facility] [id number] [place] [address] [place] Monocytes (Bld) [#/Vol] 0.73 10*3/uL Normal <0.87 [facility] Comment on above: Order Comment: Speci men Type: BLOOD SPECIMENOrdering Facility: [facility] Address: [address] [place] [address] Performed By: #### 5 7021-8 ####[facility] [id number] [place] [address] [place] Monocytes/100 WBC (Bld) 9.1 % Normal C [facility] Comment on above: Order Comment: Speci men Type: BLOOD SPECIMENOrdering Facility: [facility] Address: [address] [place] [address] Performed By: #### 5 7021-8 ####[facility] [id number] [place] [address] [place] Neutrophils (Bld) [#/Vol] 5.78 10*3/uL Normal 1.45-7.50 [facility] Comment on above: Order Comment: Speci men Type: BLOOD SPECIMENOrdering Facility: [facility] Address: [address] [place] [address] Performed By: #### 5 7021-8 ####[facility] [id number] [place] [address] [place] Neutrophils/100 WBC (Bld) 72.1 % Normal [facility] Comment on above: Order Comment: Speci men Type: BLOOD SPECIMENOrdering Facility: [facility] Address: [address] [place] [address] Performed By: #### 5 7021-8 ####[facility] [id number] [place] [address] [place] Nucleated RBC (Bld) [#/Vol] 10*3/uL Normal <0.01 [facility] Comment on above: Order Comment: Speci men Type: BLOOD SPECIMENOrdering Facility: [facility] Address: [address] [place] [address] Performed By: #### 5 7021-8 ####[facility] [id number] [place] [address] [place] Nucleated RBC/100 WBC (Bld) [Ratio] 0.0 /100 WBC Normal [facility] Comment on above: Order Comment: Speci men Type: BLOOD SPECIMENOrdering Facility: [facility] Address: [address] [place] [address] Performed By: #### 5 7021-8 ####[facility] [id number] [place] [address] [place] Platelet mean volume (Bld) [Entitic vol] 9.3 fL Normal 9.0-12.7 [facility] Comment on above: Order Comment: Speci men Type: BLOOD SPECIMENOrdering Facility: [facility] Address: [address] [place] [address] Performed By: #### 5 7021-8 ####[facility] [id number] [place] [address] [place] Platelets (Bld) [#/Vol] 324 10*3/uL Normal 150-400 [facility] Comment on above: Order Comment: Speci men Type: BLOOD SPECIMENOrdering Facility: [facility] Address: [address] [place] [address] Result Comment: No c lot detected. Performed By: #### 5 7021-8 ####[facility] [id number] [place] [address] [place] RBC (Bld) [#/Vol] 3.96 10*6/uL Normal 3.90-5.20 [facility] Comment on above: Order Comment: Speci men Type: BLOOD SPECIMENOrdering Facility: [facility] Address: [address] [place] [address] Performed By: #### 5 7021-8 ####[facility] [id number] [place] [address] [place] WBC (Bld) [#/Vol] 8.02 10*3/uL Normal 3.70-11.00 [facility] Comment on above: Order Comment: Speci men Type: BLOOD SPECIMENOrdering Facility: [facility] Address: [address] [place] [address] Performed By: #### 5 7021-8 ####[facility] [id number] [place] [address] [place] BRAIN WO IVCONon 05-12-19 CT BRAIN WO IVCON * * *Final Report* * * * * * SEE BOTTOM OF REPORT FOR ADDENDED TEXT * * * DATE OF EXAM: May 12 2024 4:54AM [facility] 0504 - CT BRAIN WO IVCON / [...] edema that would suggest a parenchymal component. Rn Paralegal: CLINT Transcribe Date/Time: May 12 2024 5:46A Dictated by : JOSE LÓPEZ MD This examination was interpreted and the report reviewed and electronically signed by: JOSE LÓPEZ MD on May 12 2024 5:26AM EST This document has been addended by: JOSE LÓPEZ MD on May 12 2024 5:48AM EST [id number] CN Normal [facility] PT panel Coag (PPP)on 2024 INR Coag (PPP) [Relative time] 1.1 {INR} Normal 0.9-1.3 [facility] Comment on above: Order Comment: Speci men Type: BLOOD SPECIMENOrdering Facility: [facility] Address: [address] [place] [address] Result Comment: Nathalie min K Antagonist (VKA) Therapeutic Range: INR 2 to 3 (Target INR of 2.5) Note: For patients treated with VKA drugs, such as warfarin, the [place] [employer] 2012 Guideline recommends [...] Chest 2012, 141:7S-47S Cam RA, et al. [facility] 2017, 70: 252-289 Performed By: #### 3 4528-0, 40882-1 ####[facility] [id number] [place] [id number] [place] PT Coag (PPP) [Time] 11.7 s Normal 9.7-13.0 [facility] Comment on above: Order Comment: Speci men Type: BLOOD SPECIMENOrdering Facility: [facility] Address: [address] [place] [address] Performed By: #### 3 4528-0, 78549-8 ####[facility] [id number] [address] [place] THERAPY NTon 05-12-2024 THERAPY NT HNO ID: [id number] Author: MARCELLA TERRY, PT, DPT Service: Physical Therapy Author Type: Physical Therapist Type: Therapy (PT/OT/Speech/Resp) Filed: 05/12/2024 13:36 Note Text: Physical Therapy Evaluation Summary SERVICE DATE: 05/12/2024 SERVICE TIME: 1244 to 1324 ROOM: [place] [address] PT 6 Clicks Score: 19 DISCHARGE RECOMMENDATIONS [...] Fall Risk CURRENT HOSPITAL COURSE transferred from [facility] May 11, 2024 with RF cortical [...] Reduced mobility-other TREATMENT INTERVENTIONS Evaluation, Therapeutic Activity (43257) Timed Code Treatment (minutes): 25 Skilled Treatment [...] PM Normal [facility] aPTT PPPon 05-12-2024 aPTT Coag (PPP) [Time] 21.2 s Low 23.0-32.4 [facility] Comment on above: Order Comment: Speci men Type: BLOOD SPECIMENOrdering Facility: [facility] Address: [address] [place] [address] Performed By: #### 3 4528-0, 85503-8 ####[facility] LABCLIA [id number] [address] [place] [address] [place] 12 Lead EKGon 05-11-2024 12 Lead EKG Normal [facility] Absolute neutrophil countOrd ered By: Tylor Hendrickson on 05-11-2024 Absolute neutrophil count 5.5 X10^3/uL 2.0-7.7 [facility] Basic Metabolic Profile (BMP )on 05-11-2024 BUN/CRE 31.2 RATIO High 10-20 [facility] Comment on above: Order Comment: 'TROP ' Serial specimen #1, #2 or #3: 1 Performed By: #### L 100.0100, L500.2500, L501.4020, L300.3900 ####[facility] [address] [place], [address] CA,Total 9.4 mg/dL Normal 8.5-10.1 [facility] Comment on above: Order Comment: 'TROP ' Serial specimen #1, #2 or #3: 1 Performed By: #### L 100.0100, L500.2500, L501.4020, L300.3900 ####[facility] [address] [place], [address] Chloride [Moles/Vol] 100 mmol/L Normal 98-107 [facility] Comment on above: Order Comment: 'TROP ' Serial specimen #1, #2 or #3: 1 Performed By: #### L 100.0100, L500.2500, L501.4020, L300.3900 ####[facility] [address] [place], [address] CO2 [Moles/Vol] 29.0 mmol/L Normal 21.0-32.0 [facility] Comment on above: Order Comment: 'TROP ' Serial specimen #1, #2 or #3: 1 Performed By: #### L 100.0100, L500.2500, L501.4020, L300.3900 ####[facility] [address] [place], [address] Creatinine [Mass/Vol] 0.96 mg/dL Normal 0.55-1.02 [facility] Comment on above: Order Comment: 'TROP ' Serial specimen #1, #2 or #3: 1 Result Comment: The validity of the calculated GFR GFRAA in patients over70 years has not been determined. Clinical correlation isessential. Performed By: #### L 100.0100, L500.2500, L501.4020, L300.3900 ####[facility] [address] [place], [address] ECRCL 37.64 ml/min Normal [facility] Comment on above: Order Comment: 'TROP ' Serial specimen #1, #2 or #3: 1 Performed By: #### L 100.0100, L500.2500, L501.4020, L300.3900 ####[facility] [address] [place], [address] EST GFR - AA 70 mL/min Normal >60 [facility] Comment on above: Order Comment: 'TROP ' Serial specimen #1, #2 or #3: 1 Result Comment: Afri can Ugandan GFR Calc Performed By: #### L 100.0100, L500.2500, L501.4020, L300.3900 ####[facility] [address] [place], [address] GAP 7 Normal 5-15 [facility] Comment on above: Order Comment: 'TROP ' Serial specimen #1, #2 or #3: 1 Performed By: #### L 100.0100, L500.2500, L501.4020, L300.3900 ####[facility] [address] [place], [address] GFR/1.73 sq M.predicted among non-blacks MDRD (S/P/Bld) [Vol rate/Area] 58 mL/min/{1.73_m2} Low >60 [facility] Comment on above: Order Comment: 'TROP ' Serial specimen #1, #2 or #3: 1 Result Comment: Non- GFR Calc Performed By: #### L 100.0100, L500.2500, L501.4020, L300.3900 ####[facility] [address] [place], [address] Glucose [Mass/Vol] 124 mg/dL High 74-106 [facility] Comment on above: Order Comment: 'TROP ' Serial specimen #1, #2 or #3: 1 Result Comment: Fast ing Glucose result from 100 to 125 mg/dLsuggests IMPAIRED HOMEOSTASIS per A.D.A. criteria. Performed By: #### L 100.0100, L500.2500, L501.4020, L300.3900 ####[facility] [address] [place], [address] Potassium [Moles/Vol] 4.2 mmol/L Normal 3.5-5.1 [facility] Comment on above: Order Comment: 'TROP ' Serial specimen #1, #2 or #3: 1 Performed By: #### L 100.0100, L500.2500, L501.4020, L300.3900 ####[facility] [address] [place], [address] Sodium [Moles/Vol] 136 mmol/L Normal 136-145 [facility] Comment on above: Order Comment: 'TROP ' Serial specimen #1, #2 or #3: 1 Performed By: #### L 100.0100, L500.2500, L501.4020, L300.3900 ####[facility] [address] [place], [address] Urea nitrogen [Mass/Vol] 30 mg/dL High 7-18 [facility] Comment on above: Order Comment: 'TROP ' Serial specimen #1, #2 or #3: 1 Performed By: #### L 100.0100, L500.2500, L501.4020, L300.3900 ####[facility] [address] [place], [address] Basophil percentageOrdered B y: Tylor Hendrickson on 05-11-2024 Basophil percentage 0.9 % 0-1 [facility] Bedside Glucoseon 05-11-2024 FINGERSTICK GLU 113 mg/dL High 74-106 [facility] Comment on above: Result Comment: ANGELICA DWYER OF PATIENT CARE PER NURSING PROTOCOL Performed By: #### L 501.080 ####[facility] [address] [place], [address] Blood urea nitrogen (BUN)/cr eatinine ratioOrdered By: Tylor Hendrickson on 05-11-2024 Blood urea nitrogen (BUN)/creatinine ratio 31.2 RATIO High 10-20 [facility] Brain/Head without Contrasto n 05-11-2024 Brain/Head without Contrast Normal [facility] CBC W Auto Differential pane l (Bld)on 05-11-2024 Basophils (Bld) [#/Vol] 0.07 10*3/uL Normal <0.11 [facility] Comment on above: Order Comment: Speci men Type: BLOOD SPECIMENOrdering Facility: [facility] Address: [address] [place] [address] Performed By: #### 5 7021-8 ####[facility] LABCLIA [id number] [facility] [place] [address] [place] Basophils/100 WBC (Bld) 0.8 % Normal C [facility] Comment on above: Order Comment: Speci men Type: BLOOD SPECIMENOrdering Facility: [facility] Address: [address] [place] [address] Performed By: #### 5 7021-8 ####[facility] LABCLIA [id number] [place] [address] [place] Differential cell count method Nom (Bld) Auto Normal [facility] Comment on above: Order Comment: Speci men Type: BLOOD SPECIMENOrdering Facility: [facility] Address: [address] [place] [address] Performed By: #### 5 7021-8 ####[facility] LABCLIA [id number] [place] [address] [place] Eosinophils (Bld) [#/Vol] 0.13 10*3/uL Normal <0.46 [facility] Comment on above: Order Comment: Speci men Type: BLOOD SPECIMENOrdering Facility: [facility] Address: [address] [place] [address] Performed By: #### 5 7021-8 ####[facility] LABCLIA [id number] [place] [address] [place] Eosinophils/100 WBC (Bld) 1.4 % Normal [facility] Comment on above: Order Comment: Speci men Type: BLOOD SPECIMENOrdering Facility: [facility] Address: [address] [place] [address] Performed By: #### 5 7021-8 ####[facility] LABCLIA [id number] [place] [address] [place] Erythrocyte distribution width (RBC) [Ratio] 14.0 % Normal 11.5-15.0 [facility] Comment on above: Order Comment: Speci men Type: BLOOD SPECIMENOrdering Facility: [facility] Address: [address] [place] [address] Performed By: #### 5 7021-8 ####[facility] LABCLIA [id number] [place] [address] [place] Hematocrit (Bld) [Volume fraction] 37.9 % Normal 36.0-46.0 [facility] Comment on above: Order Comment: Speci men Type: BLOOD SPECIMENOrdering Facility: [facility] Address: [address] [place] [address] Performed By: #### 5 7021-8 ####[facility] LABCLIA [id number] [place] [address] [place] Hemoglobin (Bld) [Mass/Vol] 12.3 g/dL Normal 11.5-15.5 [facility] Comment on above: Order Comment: Speci men Type: BLOOD SPECIMENOrdering Facility: [facility] Address: [address] [place] [address] Performed By: #### 5 7021-8 ####[facility] LABCLIA [id number] [place] [address] [place] Immature granulocytes (Bld) [#/Vol] 0.09 10*3/uL Normal <0.10 [facility] Comment on above: Order Comment: Speci men Type: BLOOD SPECIMENOrdering Facility: [facility] Address: [address] [place] [address] Performed By: #### 5 7021-8 ####[facility] LABCLIA [id number] [place] [address] [place] Immature granulocytes/100 WBC (Bld) 1.0 % Normal [facility] Comment on above: Order Comment: Speci men Type: BLOOD SPECIMENOrdering Facility: [facility] Address: [address] [place] [address] Performed By: #### 5 7021-8 ####[facility] LABCLIA [id number] [place] [address] [place] Lymphocytes (Bld) [#/Vol] 1.37 10*3/uL Normal 1.00-4.00 [facility] Comment on above: Order Comment: Speci men Type: BLOOD SPECIMENOrdering Facility: [facility] Address: [address] [place] [address] Performed By: #### 5 7021-8 ####[facility] LABCLIA [id number] [place] [address] [place] Lymphocytes/100 WBC (Bld) 14.9 % Normal [facility] Comment on above: Order Comment: Speci men Type: BLOOD SPECIMENOrdering Facility: [facility] Address: [address] [place] [address] Performed By: #### 5 7021-8 ####[facility] LABIA [id number] [place] [address] [place] MCH (RBC) [Entitic mass] 28.8 pg Normal 26.0-34.0 [facility] Comment on above: Order Comment: Speci men Type: BLOOD SPECIMENOrdering Facility: [facility] Address: [address] [place] [address] Performed By: #### 5 7021-8 ####[facility] LABIA [id number] [place] [address] [place] MCHC (RBC) [Mass/Vol] 32.5 g/dL Normal 30.5-36.0 [facility] Comment on above: Order Comment: Speci men Type: BLOOD SPECIMENOrdering Facility: [facility] Address: [address] [place] [address] Performed By: #### 5 7021-8 ####[facility] LABIA [id number] [place] [address] [place] MCV (RBC) [Entitic vol] 88.8 fL Normal 80.0-100.0 C [facility] Comment on above: Order Comment: Speci men Type: BLOOD SPECIMENOrdering Facility: [facility] Address: [address] [place] [address] Performed By: #### 5 7021-8 ####[facility] LABIA [id number] [place] [address] [place] Monocytes (Bld) [#/Vol] 0.95 10*3/uL High <0.87 [facility] Comment on above: Order Comment: Speci men Type: BLOOD SPECIMENOrdering Facility: [facility] Address: [address] [place] [address] Performed By: #### 5 7021-8 ####[facility] LABCLIA [id number] [place] [address] [place] Monocytes/100 WBC (Bld) 10.3 % Normal [facility] Comment on above: Order Comment: Speci men Type: BLOOD SPECIMENOrdering Facility: [facility] Address: [address] [place] [address] Performed By: #### 5 7021-8 ####[facility] LABCLIA [id number] [place] [address] [place] Neutrophils (Bld) [#/Vol] 6.59 10*3/uL Normal 1.45-7.50 [facility] Comment on above: Order Comment: Speci men Type: BLOOD SPECIMENOrdering Facility: [facility] Address: [address] [place] [address] Performed By: #### 5 7021-8 ####[facility] LABCLIA [id number] [place] [address] [place] Neutrophils/100 WBC (Bld) 71.6 % Normal [facility] Comment on above: Order Comment: Speci men Type: BLOOD SPECIMENOrdering Facility: [facility] Address: [address] [place] [address] Performed By: #### 5 7021-8 ####[facility] LABCLIA [id number] [place] [id number] [place] Nucleated RBC (Bld) [#/Vol] 10*3/uL Normal <0.01 [facility] Comment on above: Order Comment: Speci men Type: BLOOD SPECIMENOrdering Facility: [facility] Address: [address] [place] [address] Performed By: #### 5 7021-8 ####[facility] LABCLIA [id number] [place] [address] [place] Nucleated RBC/100 WBC (Bld) [Ratio] 0.0 /100 WBC Normal [facility] Comment on above: Order Comment: Speci men Type: BLOOD SPECIMENOrdering Facility: [facility] Address: [address] [place] [address] Performed By: #### 5 7021-8 ####[facility] LABCLIA [id number] [place] [address] [place] Platelet mean volume (Bld) [Entitic vol] 9.3 fL Normal 9.0-12.7 [facility] Comment on above: Order Comment: Speci men Type: BLOOD SPECIMENOrdering Facility: [facility] Address: [address] [place] [address] Performed By: #### 5 7021-8 ####[facility] LABIA [id number] [place] [address] [place] Platelets (Bld) [#/Vol] 340 10*3/uL Normal 150-400 [facility] Comment on above: Order Comment: Speci men Type: BLOOD SPECIMENOrdering Facility: [facility] Address: [address] [place] [address] Performed By: #### 5 7021-8 ####[facility] LABIA [id number] [place] [address] [place] RBC (Bld) [#/Vol] 4.27 10*6/uL Normal 3.90-5.20 [facility] Comment on above: Order Comment: Speci men Type: BLOOD SPECIMENOrdering Facility: [facility] Address: [address] [place] [address] Performed By: #### 5 7021-8 ####[facility] LABCLIA [id number] [place] [address] [place] WBC (Bld) [#/Vol] 9.20 10*3/uL Normal 3.70-11.00 [facility] Comment on above: Order Comment: Speci men Type: BLOOD SPECIMENOrdering Facility: [facility] Address: [address] [place] [address] Performed By: #### 5 7021-8 ####[facility] LABCLIA [id number] [address] [place] [address] [place] CBC W/Diff, Automatedon 12-3 Absolute Lymph 1.44 X10 3/uL Normal 0.83-4.51 [facility] Comment on above: Performed By: #### L 100.0100, L500.2500, L501.4020, L300.3900 ####[facility] [address] [place], [address] Absolute Neut 5.5 X10 3/uL Normal 2.0-7.7 [facility] Comment on above: Performed By: #### L 100.0100, L500.2500, L501.4020, L300.3900 ####[facility] [address] [place], [address] Basophils/100 WBC (Bld) 0.9 % Normal 0-1 [facility] Comment on above: Performed By: #### L 100.0100, L500.2500, L501.4020, L300.3900 ####[facility] [address] [place], [address] Eosinophils/100 WBC (Bld) 1.4 % Normal 0-5 [facility] Comment on above: Performed By: #### L 100.0100, L500.2500, L501.4020, L300.3900 ####[facility] [address] [place], [address] Erythrocyte distribution width (RBC) [Ratio] 14.2 % Normal 11.6-14.6 [facility] Comment on above: Performed By: #### L 100.0100, L500.2500, L501.4020, L300.3900 ####[facility] [address] [place], [address] Hematocrit (Bld) [Volume fraction] 38.6 % Normal 37-47 [facility] Comment on above: Performed By: #### L 100.0100, L500.2500, L501.4020, L300.3900 ####[facility] [address] [place], [address] Hemoglobin (Bld) [Mass/Vol] 12.2 g/dL Normal 12.0-15.0 [facility] Comment on above: Performed By: #### L 100.0100, L500.2500, L501.4020, L300.3900 ####[facility] [address] [place], [address] IG% 0.600 Normal 0.0-0.9 [facility] Comment on above: Result Comment: IG% - Immature Granulocytes (promyelocytes, myelocytes andmetamyelocytes) > 1% indicates that a LEFT SHIFT is Present. Performed By: #### L 100.0100, L500.2500, L501.4020, L300.3900 ####[facility] [address] [place], [address] Lymphocytes/100 WBC (Bld) 18.4 % Low 19-41 [facility] Comment on above: Performed By: #### L 100.0100, L500.2500, L501.4020, L300.3900 ####[facility] [address] [place], [address] MCH (RBC) [Entitic mass] 28.6 pg Normal 27.0-32.0 [facility] Comment on above: Performed By: #### L 100.0100, L500.2500, L501.4020, L300.3900 ####[facility] [address] [place], [address] MCHC (RBC) [Mass/Vol] 31.6 g/dL Low 32-36 [facility] Comment on above: Performed By: #### L 100.0100, L500.2500, L501.4020, L300.3900 ####[facility] [address] [place], [address] MCV (RBC) [Entitic vol] 90.4 fL Normal 81-99 [facility] Comment on above: Performed By: #### L 100.0100, L500.2500, L501.4020, L300.3900 ####[facility] [address] [place], [address] Monocytes/100 WBC (Bld) 8.3 % Normal 0-10 [facility] Comment on above: Performed By: #### L 100.0100, L500.2500, L501.4020, L300.3900 ####[facility] [address] [place], [address] Neutrophils/100 WBC (Bld) 70.4 % High 47-70 [facility] Comment on above: Performed By: #### L 100.0100, L500.2500, L501.4020, L300.3900 ####[facility] [address] [place], [address] Nucleated RBC (Bld) [#/Vol] 0 10*3/uL Normal 0-5 [facility] Comment on above: Performed By: #### L 100.0100, L500.2500, L501.4020, L300.3900 ####[facility] [address] [place], [address] Platelet mean volume (Bld) [Entitic vol] 9.4 fL Normal 6.2-12.0 [facility] Comment on above: Performed By: #### L 100.0100, L500.2500, L501.4020, L300.3900 ####[facility] [address] [place], [address] Platelets (Bld) [#/Vol] 365 10*3/uL Normal 150-450 [facility] Comment on above: Performed By: #### L 100.0100, L500.2500, L501.4020, L300.3900 ####[facility] [address] [place], [address] RBC (Bld) [#/Vol] 4.27 10*6/uL Normal 4.2-5.4 [facility] Comment on above: Performed By: #### L 100.0100, L500.2500, L501.4020, L300.3900 ####[facility] [address] [place], [address] RDW SD 47.3 fl High 35.1-43.9 [facility] Comment on above: Performed By: #### L 100.0100, L500.2500, L501.4020, L300.3900 ####[facility] [address] [place], [address] WBC (Bld) [#/Vol] 7.8 10*3/uL Normal 4.4-11.0 [facility] Comment on above: Performed By: #### L 100.0100, L500.2500, L501.4020, L300.3900 ####[facility] [address] [place], [address] CK SerPl-cCncon 05-11-2024 CK [Catalytic activity/Vol] 90 U/L Normal 42-196 [facility] Comment on above: Order Comment: Speci men Type: BLOOD SPECIMENOrdering Facility: [facility] Address: [address] [place] [address] Performed By: #### 2 777-1, 88451-7, 2157-6, TSHRF, HSTNT, 74950-3 ####[facility] LABMARGARITO [id number] [address] STATES OF [facility] CNCRITCRon 05-11-2024 CNCRITCR Critical Care Transport (CCT) Jatin SOLOMON ([id number]) 1935 F Date Time Provider Department 05/11/24 NORMA MOON During your visit today, we recorded the following information about you: Norma Moon APRN.CNP 05/11/2024 8:04 PM Signed CRITICAL CARE TRANSPORT MEDICAL CONTROL CONSULT NOTE Patient Name: Jatin Solomon Service Date: May 11, 2024 Referring Facility: [facility] Accepting Facility: [facility] REASON FOR TRANSPORT: higher level neurosurgical [...] for afib on coumadin who presented to [facility] for evaluation of left arm weakness. [...] read back via telephone with CCT Transport architecture faculty member, David Campos RN SIGNATURE: Norma Moon APRN.CNP Acute Care Nurse Practitioner Critical Care Transport Allergies As of Date: 05/11/2024 Noted Allergy Reaction SUTURES 11/26/2012 9 - Itching ACTONEL (RISEDRONATE SODIUM) 11/06/2007 8 - GI Upset Comments: States had GI bleed ADHES. [id number]-KKSL-[id number] UM 12/09/2007 BEETS 05/28/2011 2 - Rash [...] Assessed Reason for Visit: Critical Care Transport [1298] Prescriptions as of 05/16/2024 - atenolol (TENORMIN) [...] 02/19/2012 Insomnia, unspecified [G47.00] 02/11/2007 02/19/2012 NIGHTMARE [FDL3831] 02/11/2007 04/12/2014 LUMBAR RADICULITIS [[id number]] 02/11/2007 BACKACHE NOS [M54.9] 02/17/2007 MITRAL INSUFFICIENCY [...] Hypertensive emergency [I16.1] 05/11/2024 Current use of fpc anticoagulation [Z79.0*05/11/2024 Restless leg syndrome [G25.81] 05/11/2024 Prescriptions ordered this encounter Dis (more content not included)... Normal [facility] CTA HEAD WO/W IVCONon 2023 CTA HEAD WO/W IVCON * * *Final Report* * * DATE OF EXAM: May 11 2024 8:45PM [facility] 0023 - CTA HEAD WO/W IVCON / [...] between software and imaging review: Not Applicable. Rn Paralegal: CLINT Transcribe Date/Time: May 11 2024 8:50P Dictated by : LAMONTE MCDONALD MD This examination was interpreted and the report reviewed and electronically signed by: LAMONTE MCDONALD MD on May 11 2024 9:02PM EST [id number] Normal [facility] CTA NECK W IVCONon CTA NECK W IVCON * * *Final Report* * * DATE OF EXAM: May 11 2024 8:45PM [facility] 0024 - CTA NECK W IVCON / [...] between software and imaging review: Not Applicable. Rn Paralegal: CLINT Transcribe Date/Time: May 11 2024 8:50P Dictated by : LAMONTE MCDONALD MD This examination was interpreted and the report reviewed and electronically signed by: LAMONTE MCDONALD MD on May 11 2024 9:02PM EST [id number] Normal [facility] Calcium [Mass/Vol]Ordered By : Tylor Hendrickson on 05-11-2024 Serum or plasma calcium measurement (mass/volume) 9.4 mg/dL 8.5-10.1 [facility] Calcium.ionized [Moles/Vol]o n 05-11-2024 Calcium.ionized (Bld) [Mass/Vol] 1.17 mmol/L Normal 1.08-1.30 [facility] Comment on above: Order Comment: Speci men Type: BLOOD SPECIMENOrdering Facility: [facility] Address: [address] [place] [address] Performed By: #### 1 995-0 ####[facility] [id number] [place] [address] [place] Calcium.ionized adjusted to pH 7.4 (Bld) [Moles/Vol] 1.19 mmol/L Normal 1.08-1.30 [facility] Comment on above: Order Comment: Speci men Type: BLOOD SPECIMENOrdering Facility: [facility] Address: [address] [place] [address] Performed By: #### 1 995-0 ####[facility]IA [id number] [place] [address] [place] Carbon dioxide measurementOr dered By: Tylor Hendrickson on 05-11-2024 Carbon dioxide measurement 29.0 mmol/L 21.0-32.0 [facility] Chloride measurementOrdered By: Tylor Hendrickson on 05-11-2024 Chloride measurement 100 mmol/L 98-107 [facility] Clarity (U)Ordered By: Tylor Hendrickson on 05-11-2024 Urine clarity Clear Clear [facility] Color (U)Ordered By: Tylor suárez on 05-11-2024 Urine color determination Straw Yellow [facility] Comprehensive metabolic 2000 panelon 05-11-2024 Albumin [Mass/Vol] 2.8 g/dL Low 3.9-4.9 [facility] Comment on above: Order Comment: Speci men Type: BLOOD SPECIMENOrdering Facility: [facility] Address: [address] [place] [address] Result Comment: Resu lt rechecked. Performed By: #### 2 777-1, 71798-5, 2156-10, TSHRF, HSTNT, ####[facility] LABCLIA [id number] [place] [address] [place] ALP [Catalytic activity/Vol] 51 U/L Normal 34-123 [facility] Comment on above: Order Comment: Speci men Type: BLOOD SPECIMENOrdering Facility: [facility] Address: [address] [place] [address] Performed By: #### 2 777-1, , 2156-10, TSHRF, HSTNT, ####[facility] LABCLIA [id number] [place] [id number] [place] ALT [Catalytic activity/Vol] 7 U/L Normal 7-38 [facility] Comment on above: Order Comment: Speci men Type: BLOOD SPECIMENOrdering Facility: [facility] Address: [address] [place] [address] Performed By: #### 2 777-1, 38228-8, 2156-10, TSHRF, HSTNT, ####[facility] LABCLIA [id number] [place] [id number] [place] Anion gap [Moles/Vol] 12 mmol/L Normal 8-15 [facility] Comment on above: Order Comment: Speci men Type: BLOOD SPECIMENOrdering Facility: [facility] Address: [address] [place] [address] Performed By: #### 2 777-1, 06049-1, 2156-6, TSHRF, HSTNT, ####[facility] LABCLIA [id number] [place] [address] [place] AST [Catalytic activity/Vol] 15 U/L Normal 13-35 [facility] Comment on above: Order Comment: Speci men Type: BLOOD SPECIMENOrdering Facility: [facility] Address: [address] [place] [address] Performed By: #### 2 777-1, 60345-4, 6, TSHRF, HSTNT, ####[facility] LABCLIA [id number] [place] [address] [place] Bilirubin [Mass/Vol] 0.4 mg/dL Normal 0.2-1.3 [facility] Comment on above: Order Comment: Speci men Type: BLOOD SPECIMENOrdering Facility: [facility] Address: [address] [place] [address] Performed By: #### 2 777-1, 45946-5, 6, TSHRF, HSTNT, ####[facility] LABCLIA [id number] [place] [id number] [place] Calcium [Mass/Vol] 7.0 mg/dL Low 8.5-10.2 [facility] Comment on above: Order Comment: Speci men Type: BLOOD SPECIMENOrdering Facility: [facility] Address: [address] [place] [address] Result Comment: Resu lt rechecked. Performed By: #### 2 777-1, 91695-2, 6, TSHRF, HSTNT, ####[facility] [id number] [facility] [address] [address] [place] Chloride [Moles/Vol] 107 mmol/L Normal 98-107 [facility] Comment on above: Order Comment: Speci men Type: BLOOD SPECIMENOrdering Facility: [facility] Address: [address] [place] [address] Performed By: #### 2 777-1, 84581-1, 6, TSHRF, HSTNT, ####[facility]CL[facility] [id number] [place] [id number] [place] CO2 [Moles/Vol] 20 mmol/L Low 22-30 [facility] Comment on above: Order Comment: Speci men Type: BLOOD SPECIMENOrdering Facility: [facility] Address: [address] [place] [address] Performed By: #### 2 777-1, 54179-0, 6, TSHRF, HSTNT, ####[facility] [id number] [place] [id number] [place] Creatinine [Mass/Vol] 0.62 mg/dL Normal 0.58-0.96 [facility] Comment on above: Order Comment: Speci men Type: BLOOD SPECIMENOrdering Facility: [facility] Address: [address] [place] [address] Performed By: #### 2 777-1, 41976-0, 2156-10, TSHRF, HSTNT, ####[facility] [id number] [place] [id number] [place] Creatinine and Glomerular filtration rate.predicted panel (S/P/Bld) 86 mL/min/1.73m??? Normal >=60 [facility] Comment on above: Order Comment: Speci men Type: BLOOD SPECIMENOrdering Facility: [facility] Address: [address] [place] [address] Result Comment: Michael mated Glomerular Filtration Rate [...] actual GFR. Performed By: #### 2 777-1, 31454-4, 2156-10, TSHRF, HSTNT, ####[facility] LABCLIA [id number] [address] [address] [place] Glucose [Mass/Vol] 109 mg/dL High 74-99 [facility] Comment on above: Order Comment: Christopher hurd Type: BLOOD SPECIMENOrdering Facility: [facility] Address: [address] [place] [address] Result Comment: The [place] [employer] (ADA) provides guidance for cutoff [...] Standards of Medical Care in Diabetes 2016, [place] [employer]. Diabetes Care. 2016.39(Suppl 1). Performed By: #### 2 777-1, 29010-5, 2156-10, TSHRF, HSTNT, ####[facility]CLIA [id number] [place] [id number] [place] Potassium [Moles/Vol] 3.3 mmol/L Low 3.7-5.1 [facility] Comment on above: Order Comment: Speci men Type: BLOOD SPECIMENOrdering Facility: [facility] Address: [address] [place] [address] Performed By: #### 2 777-1, 86494-8, 2156-10, TSHRF, HSTNT, ####[facility] LABCLIA [id number] [address] [address] [place] Protein [Mass/Vol] 5.2 g/dL Low 6.3-8.0 [facility] Comment on above: Order Comment: Speci men Type: BLOOD SPECIMENOrdering Facility: [facility] Address: [address] [place] [address] Result Comment: Resu lt rechecked. Performed By: #### 2 777-1, 49087-3, 2156-10, TSHRF, HSTNT, ####[facility]CL[facility] [id number] [address] [address] [place] Sodium [Moles/Vol] 139 mmol/L Normal 136-144 [facility] Comment on above: Order Comment: Speci men Type: BLOOD SPECIMENOrdering Facility: [facility] Address: [address] [place] [address] Performed By: #### 2 777-1, , 2156-10, TSHRF, HSTNT, ####[facility]CL[facility] [id number] [address] [address] [place] Urea nitrogen [Mass/Vol] 22 mg/dL High 7-21 [facility] Comment on above: Order Comment: Speci men Type: BLOOD SPECIMENOrdering Facility: [facility] Address: [address] [place] [address] Performed By: #### 2 777-1, 69032-1, 2156-10, TSHRF, HSTNT, ####[facility]CL[facility] [id number] [address] [address] [place] Albumin [Mass/Vol] 4.1 g/dL Normal 3.9-4.9 [facility] Comment on above: Order Comment: Speci men Type: BLOOD SPECIMENOrdering Facility: [facility] Address: [address] [place] [address] Performed By: #### 2 4323-8, 2776-05, ####[facility] LABCLIA [id number] [address] [address] [place] ALP [Catalytic activity/Vol] 75 U/L Normal 34-123 [facility] Comment on above: Order Comment: Speci men Type: BLOOD SPECIMENOrdering Facility: [facility] Address: [address] [place] [address] Performed By: #### 2 4323-8, 2776-05, ####[facility] LABCLIA [id number] [place] [address] [place] ALT [Catalytic activity/Vol] 9 U/L Normal 7-38 [facility] Comment on above: Order Comment: Speci men Type: BLOOD SPECIMENOrdering Facility: [facility] Address: [address] [place] [address] Performed By: #### 2 4323-8, 2776-05, ####[facility] [id number] [place] [id number] [place] Anion gap [Moles/Vol] 12 mmol/L Normal 8-15 [facility] Comment on above: Order Comment: Speci men Type: BLOOD SPECIMENOrdering Facility: [facility] Address: [address] [place], [place] [address] Performed By: #### 2 4323-8, 2776-05, ####[facility] [id number] [place] [id number] [place] AST [Catalytic activity/Vol] 19 U/L Normal 13-35 [facility] Comment on above: Order Comment: Speci men Type: BLOOD SPECIMENOrdering Facility: [facility] Address: [address] [place] [address] Performed By: #### 2 4323-8, 27711-09, ####[facility] LABCLIA [id number] [address] [address] [place] Bilirubin [Mass/Vol] 0.5 mg/dL Normal 0.2-1.3 [facility] Comment on above: Order Comment: Speci men Type: BLOOD SPECIMENOrdering Facility: [facility] Address: [address] [place], [place] [address] Performed By: #### 2 4323-8, 27711-09, ####[facility] LABCLIA [id number] [place] [address] [place] Calcium [Mass/Vol] 9.5 mg/dL Normal 8.5-10.2 [facility] Comment on above: Order Comment: Speci men Type: BLOOD SPECIMENOrdering Facility: [facility] Address: [address] [place], [place] [address] Performed By: #### 2 4323-8, 2776-05, ####[facility]CL[facility] [id number] [place] [address] [place] Chloride [Moles/Vol] 100 mmol/L Normal 98-107 [facility] Comment on above: Order Comment: Speci men Type: BLOOD SPECIMENOrdering Facility: [facility] Address: [address] [place] [address] Performed By: #### 2 4323-8, 2776-05, ####[facility]CL[facility] [id number] [address] [address] [place] CO2 [Moles/Vol] 30 mmol/L Normal 22-30 [facility] Comment on above: Order Comment: Speci men Type: BLOOD SPECIMENOrdering Facility: [facility] Address: [address] [place] [address] Performed By: #### 2 4323-8, 2777, ####[facility] [id number] [address] [address] [place] Creatinine [Mass/Vol] 0.76 mg/dL Normal 0.58-0.96 [facility] Comment on above: Order Comment: Speci men Type: BLOOD SPECIMENOrdering Facility: [facility] Address: [address] [place] [address] Performed By: #### 2 4323-8, 27711-09, ####[facility] [id number] [place] [address] [place] Creatinine and Glomerular filtration rate.predicted panel (S/P/Bld) 75 mL/min/1.73m??? Normal >=60 [facility] Comment on above: Order Comment: Christopher hurd Type: BLOOD SPECIMENOrdering Facility: [facility] Address: [address] [place] [address] Result Comment: Michael mated Glomerular Filtration Rate [...] actual GFR. Performed By: #### 2 4323-8, 27711-09, ####[facility] [id number] [address] [address] [place] Glucose [Mass/Vol] 147 mg/dL High 74-99 [facility] Comment on above: Order Comment: Jeanettei men Type: BLOOD SPECIMENOrdering Facility: [facility] Address: [address] [place] [address] Result Comment: The [place] Diabetes [employer] (ADA) provides guidance for cutoff [...] Standards of Medical Care in Diabetes 2016, [place] [employer]. Diabetes Care. 2016.39(Suppl 1). Performed By: #### 2 4323-8, 2776-05, ####[facility] [id number] [place] [address] [place] Potassium [Moles/Vol] 3.8 mmol/L Normal 3.7-5.1 [facility] Comment on above: Order Comment: Speci men Type: BLOOD SPECIMENOrdering Facility: [facility] Address: [address] [place] [address] Performed By: #### 2 4323-8, 2776-05, ####[facility] [id number] [place] [address] [place] Protein [Mass/Vol] 7.2 g/dL Normal 6.3-8.0 [facility] Comment on above: Order Comment: Speci men Type: BLOOD SPECIMENOrdering Facility: [facility] Address: [address] [place] [address] Performed By: #### 2 4323-8, 2776-05, ####[facility] [id number] [place] [id number] [place] Sodium [Moles/Vol] 142 mmol/L Normal 136-144 [facility] Comment on above: Order Comment: Speci men Type: BLOOD SPECIMENOrdering Facility: [facility] Address: [address] [place], [place] [address] Performed By: #### 2 4323-8, 2776-05, ####[facility]CL[facility] [id number] [place] [address] [place] Urea nitrogen [Mass/Vol] 25 mg/dL High 7-21 [facility] Comment on above: Order Comment: Speci men Type: BLOOD SPECIMENOrdering Facility: [facility] Address: [address] [place] [address] Performed By: #### 2 4323-8, 2777-1, 15072-0 ####[facility]CL[facility] [id number] [place] [address] [place] Creatinine [Mass/Vol]Ordered By: Tylor Hendrickson on 05-11-2024 Serum or plasma creatinine measurement (mass/volume) 0.96 mg/dL 0.55-1.02 [facility] Emergency Department Summary on 05-11-2024 Emergency Department Summary Normal [facility] Eosinophil percentageOrdered By: Tylor Hendrickson on 05-11-2024 Eosinophil percentage 1.4 % 0-5 [facility] Erythrocyte distribution wid th (RBC) [Ratio]Ordered By: Tylor Hendrickson on 05-11-2024 Erythrocyte distribution width ratio 14.2 % 11.6-14.6 [facility] Erythrocyte distribution wid th standard deviationOrdered By: Tylor Hendrickson on 05-11-2024 Erythrocyte distribution width standard deviation 47.3 fl High 35.1-43.9 [facility] Estimated glomerular filtrat ion rate (GFR) AmericanOrdered By: Tylor Hendrickson on 05-11-2024 Estimated glomerular filtration rate (GFR) 70 mL/min >60 [facility] Estimation of creatinine mary ellen aranceOrdered By: Tylor eHndrickson on 05-11-2024 Estimation of creatinine clearance 37.64 ml/min [facility] Glomerular filtration rate ( GFR) estimationOrdered By: Tylor Hendrickson on 05-11-2024 Glomerular filtration rate (GFR) estimation 58 mL/min Low >60 [facility] Glucose measurementOrdered B y: Tylor Hendrickson on 05-11-2024 Glucose measurement 124 mg/dL High 74-106 [facility] Glucose measurement at bedsi deOrdered By: Tylor Hendrickson on 05-11-2024 Glucose measurement at bedside 113 mg/dL High 74-106 [facility] HIGH SENSITIVITY TROPONIN To n 05-11-2024 Troponin T.cardiac High sensitivity method [Mass/Vol] 19 ng/L High <12 [facility] Comment on above: Order Comment: Speci men Type: BLOOD SPECIMENOrdering Facility: [facility] Address: [address] [place] [address] Performed By: #### 2 777-1, 55736-1, 2157-6, TSHRF, HSTNT, 71767-4 ####[facility]CL[facility] [id number] [facility] [place] [address] [place] HISTORY PHYSICALon HISTORY PHYSICAL HNO ID: [id number] Author: DUGLAS KIM MD Service: Neurosurgery Author [...] warfarin, NEL, osteoporosis, secondary hypothyroidism transferred from [facility] May 11, 2024 with RF cortical [...] involving digestive system(787.99) PAF (paroxysmal atrial fibrillation) ([facility]) 10/20/2013 Thyroid disorder PAST SURGICAL [...] included)... Normal [facility] HISTORY PHYSICAL HNO ID: [id number] Author: CARI WONG MD, PhD Service: Neurology [...] on CPAP, osteoporosis, secondary hypothyroidism transferred from [facility] May 11, 2024 for ICH monitoring. [...] involving digestive system(787.99) PAF (paroxysmal atrial fibrillation) ([facility]) 10/20/2013 Thyroid disorder PAST SURGICAL [...] GI Upset States had GI bleed Adhes. Knut-Rxey-Ag* Beets Rash raised injection site when allergy [...] included)... Normal [facility] HISTORY PHYSICAL HNO ID: [id number] Author: CLINT BERMUDEZ APRN.HUMAN RESOURCES BENEFITS MANAGER Service: Neurology ICU Author Type: Nurse Practitioner [...] warfarin, NEL, osteoporosis, secondary hypothyroidism transferred from [facility] May 11, 2024 with focus of [...] GI Upset States had GI bleed Adhes. Okae-Mhmf-Tj* Beets Rash raised injection site when allergy [...] Edema- Yes Peripheral pulses- Present all extremities [facility] CHECKLIST DATA: [...] included)... Normal [facility] Hematocrit Auto (Bld) [Volum e fraction]Ordered By: Tylor Hendrickson on 05-11-2024 Automated blood hematocrit (percentage) 38.6 % 37-47 [facility] Hemoglobin measurementOrdere d By: Tylor Hendrickson on 05-11-2024 Hemoglobin measurement 12.2 g/dL 12.0-15.0 [facility] Immature granulocytes/100 WB C Auto (Bld)Ordered By: Tylor Hendrickson on 05-11-2024 Automated immature granulocyte percentage 0.600 % 0.0-0.9 [facility] International normalized rat io (INR) calculationOrdered By: Tylor Hendrickson on 05-11-2024 International normalized ratio (INR) calculation 2.1 [facility] L501.4020on 05-11-2024 TROPONIN-I HS 13 pg/mL Normal 3.0-54.0 [facility] Comment on above: Order Comment: 'TROP ' Serial specimen #1, #2 or #3: 1 Result Comment: Plea se Note: New Test Units and Gender Specific Reference Ranges. For more information see Policy Stat Procedure [place] High Sensitivity Troponin (TNIH) and attachments. Performed By: #### L 100.0100, L500.2500, L501.4020, L300.3900 ####[facility] [id number] [place], [place], [address] Lymphocytes Auto (Unsp spec) [#/Vol]Ordered By: Tylor Hendrickson on 05-11-2024 Absolute lymphocyte count 1.44 X10^3/uL 0.83-4.51 [facility] Lymphocytes/100 WBC Auto (Un sp spec)Ordered By: Tylor Hendrickson on 05-11-2024 Automated lymphocyte count as percentage of total leukocytes 18.4 % Low 19-41 [facility] MCV (RBC) [Entitic vol]Order ed By: Tylor Hendrickson on 05-11-2024 MCV (mean corpuscular volume) determination 90.4 fL 81-99 [facility] Magnesium SerPl-mCncon 05-11 Magnesium [Mass/Vol] 1.7 mg/dL Normal 1.7-2.3 [facility] Comment on above: Order Comment: Speci men Type: BLOOD SPECIMENOrdering Facility: [facility] Address: [address] [place] [address] Performed By: #### 2 777-1, 16652-5, 2157-6, TSHRF, HSTNT, 34248-7 ####[facility] [id number] [address] [address] [place] Magnesium [Mass/Vol] 2.3 mg/dL Normal 1.7-2.3 [facility] Comment on above: Order Comment: Christopher hurd Type: BLOOD SPECIMENOrdering Facility: [facility] Address: [address] [place] [address] Performed By: #### 2 4323-8, 2777-1, 89215-7 ####[facility]CL[facility] [id number] [facility] [place] [address] [place] [facility] Mean corpuscular hemoglobin (MCH) determinationOrdered By: Tylor Hendrickson on 05-11-2024 Mean corpuscular hemoglobin (MCH) determination 28.6 pg 27.0-32.0 [facility] Mean corpuscular hemoglobin concentration (MCHC) determinationOrdered By: Tylor Hendrickson on 05-11-2024 Mean corpuscular hemoglobin concentration (MCHC) determination 31.6 g/dL Low 32-36 [facility] Mean platelet volume determi nationOrdered By: Tylor Hendrickson on 05-11-2024 Mean platelet volume determination 9.4 fl 6.2-12.0 [facility] Monocyte percentageOrdered B y: Tylor Hendrickson on 05-11-2024 Monocyte percentage 8.3 % 0-10 [facility] Neutrophil percentageOrdered By: Tylor Hendrickson on 05-11-2024 Neutrophil percentage 70.4 % High 47-70 [facility] Nucleated red blood cell per centageOrdered By: Tylor Hendrickson on 05-11-2024 Nucleated red blood cell percentage 0 % 0-5 [facility] PT panel Coag (PPP)on 2023 INR Coag (PPP) [Relative time] 2.0 {INR} High 0.9-1.3 [facility] Comment on above: Order Comment: Christopher hurd Type: BLOOD SPECIMENOrdering Facility: [facility] Address: [address] [place] [address] Result Comment: Nathalie min K Antagonist (VKA) Therapeutic Range: INR 2 to 3 (Target INR of 2.5) Note: For patients treated with VKA drugs, such as warfarin, the [place] [employer] 2012 Guideline recommends [...] Chest 2012, 141:7S-47S Cam RA, et al. [facility] 2017, 70: 252-289 Performed By: #### 1 4979-9, 34621-8 ####[facility] [id number] [place] [id number] [place] PT Coag (PPP) [Time] 21.1 s High 9.7-13.0 [facility] Comment on above: Order Comment: Christopher hurd Type: BLOOD SPECIMENOrdering Facility: [facility] Address: [address] [place] [address] Performed By: #### 1 4979-9, 86041-7 ####[facility] [id number] [place] [id number] [place] Partial Thromboplast Timeon 05-11-2024 aPTT Coag (Bld) [Time] 39.7 s High 24.1-36.2 [facility] Comment on above: Order Comment: ERNESTO Vivas PREVIOUS SPECIMEN REJECTED DUE TOQNS. 05/11/24 1312 Performed By: #### L 300.4310, L300.3900 ####[facility] [id number] [place], [address] Phosphate SerPl-mCncon 05-11 Phosphate [Mass/Vol] 2.4 mg/dL Low 2.7-4.8 [facility] Comment on above: Order Comment: Christopher hurd Type: BLOOD SPECIMENOrdering Facility: [facility] Address: [address] [place] [address] Performed By: #### 2 777-1, 94070-0, 2157-6, TSHRF, HSTNT, 49370-0 ####[facility] [id number] [place] [address] [place] Phosphate [Mass/Vol] 3.2 mg/dL Normal 2.7-4.8 [facility] Comment on above: Order Comment: Speci men Type: BLOOD SPECIMENOrdering Facility: [facility] Address: [address] [place] [address] Performed By: #### 2 4323-8, 2777-1, 95795-7 ####[facility] [id number] [place] [address] [place] Platelet countOrdered By: Cari Hendrickson on 05-11-2024 Platelet count 365 K/mm3 150-450 [facility] Potassium measurementOrdered By: Tylor Hendrickson on 05-11-2024 Potassium measurement 4.2 mmol/L 3.5-5.1 [facility] Prothrombin Time w/INRon INR Coag (PPP) [Relative time] 2.1 {INR} Normal [facility] Comment on above: Order Comment: REDRA W. PREVIOUS SPECIMEN REJECTED DUE TOQNS. 05/11/24 131 Performed By: #### L 300.4310, L300.3900 ####[facility] [id number] [place], [place], [id number] PT Coag (PPP) [Time] 23.7 s High 11.7-14.9 [facility] Comment on above: Order Comment: REDRA W. PREVIOUS SPECIMEN REJECTED DUE TOQNS. 05/11/242 Performed By: #### L 300.4310, L300.3900 ####[facility] [address] [place], [address] INR Normal [facility] Comment on above: Result Comment: This specimen has been REJECTED due to Laboratory criteria:Quanity Not Sufficient.HORR has been notified of need of recollection.05/11/24 1310 Tracie Clapper Performed By: #### L 100.0100, L500.2500, L501.4020, L300.3900 ####[facility] [address] [place], [address] PROTIME Normal 11.7-14.9 [facility] Comment on above: Result Comment: This specimen has been REJECTED due to Laboratory criteria:Quanity Not Sufficient.HORR has been notified of need of recollection.05/11/24 1310 Tracie Clapper Performed By: #### L 100.0100, L500.2500, L501.4020, L300.3900 ####[facility] [address] [place], [address] Prothrombin timeOrdered By: Tylor Hendrickson on 05-11-2024 Prothrombin time 23.7 SECONDS High 11.7-14.9 [facility] RBC Auto (Bld) [#/Vol]Ordere d By: Tylor Hendrickson on 05-11-2024 Automated blood erythrocyte count 4.27 M/mm3 4.2-5.4 [facility] STAPHYLOCOCCUS AUREUS AND MR SA SCREEN, PCR, NASALon 05-11-2024 S. aureus and MRSA panel RHYS+probe (Nose) Not detected Normal Not Detected [facility] Comment on above: Order Comment: Speci men Type: SWABOrdering Facility: [facility] Address: [address] [place] [address] Performed By: #### S APCR ####[facility] LABCLIA [id number] [place] [address] [place] Serum anion gap measurementO rdered By: Tylor Hendrickson on 05-11-2024 Serum anion gap measurement 7 5-15 [facility] Sodium levelOrdered By: Tylor Hendrickson on 05-11-2024 Sodium level 136 mmol/L 136-145 [facility] Specific gravity (U) [Rel de nsity]Ordered By: Tylor Hendrickson on 05-11-2024 Urine specific gravity measurement 1.010 1.002-1.030 [facility] TSH W/REFLEX FT4on TSH Qn 1.170 m[IU]/L Normal 0.270-4.200 [facility] Comment on above: Order Comment: Speci men Type: BLOOD SPECIMENOrdering Facility: [facility] Address: [address] [place] [address] Performed By: #### 2 777-1, 84995-8, 2157-6, TSHRF, HSTNT, 90549-5 ####[facility] LABCLIA [id number] [place] [address] [place] TYPE + SCREENon 05-11-2024 ABO A Normal [facility] Comment on above: Order Comment: Speci men Type: BLOOD SPECIMENOrdering Facility: [facility] Address: [address] [place] [address] Performed By: #### T SCR ####[facility] BLOOD BANKCLIA [id number] [place] [address] [place] Rh Nom (Bld) Positive Normal [facility] Comment on above: Order Comment: Speci men Type: BLOOD SPECIMENOrdering Facility: [facility] Address: [address] [place] [address] Performed By: #### T SCR ####[facility] MAIN BLOOD BANKCLIA [id number] [place] [id number] [place] TYPE AND SCREEN EXPIRATION 05/14/2024 23:59 Normal [facility] Comment on above: Order Comment: Speci men Type: BLOOD SPECIMENOrdering Facility: [facility] Address: [address] [place] [address] Performed By: #### T SCR ####[facility] MAIN BLOOD BANKCLIA [id number] [place] [id number] [place] Troponin IOrdered By: Tylor perez on 05-11-2024 Troponin I 13 pg/mL 3.0-54.0 [facility] Urea nitrogen [Mass/Vol]Orde red By: Tylor Hendrickson on 05-11-2024 Serum or plasma urea nitrogen measurement (mass/volume) 30 mg/dL High 7-18 [facility] Urinalysis, Completeon 05-11 BACTERIA 0 SEEN Normal None Seen [facility] Comment on above: Order Comment: CLEAN CATCH Performed By: #### L 400.0001 ####[facility] [address] [place], [address] EPI,SQUAMOUS 0 SEEN Normal 5-10 [facility] Comment on above: Order Comment: CLEAN CATCH Performed By: #### L 400.0001 ####[facility] [address] [facility] [address] Mucus Ql (Urine sed) 0 SEEN Normal [facility] Comment on above: Order Comment: CLEAN CATCH Performed By: #### L 400.0001 ####[facility] [address] [place], [address] RBC 0 SEEN Normal 0-5 [facility] Comment on above: Order Comment: CLEAN CATCH Performed By: #### L 400.0001 ####[facility] [address] [place], [address] WBC 0 SEEN Normal 0-5 [facility] Comment on above: Order Comment: CLEAN CATCH Performed By: #### L 400.0001 ####[facility] [address] [place], [address] Urine glucose detectionOrder ed By: Tylor Hendrickson on 05-11-2024 Urine glucose detection Normal mg/dl Normal [facility] Urine total bilirubin detect ion by test stripOrdered By: Tylor Hendrickson on 05-11-2024 Urine total bilirubin detection by test strip Negative Negative [facility] White blood cell (WBC) count Ordered By: Tylor Hendrickson on 05-11-2024 White blood cell (WBC) count 7.8 K/mm3 4.4-11.0 [facility] White blood cell countOrdere d By: Tylor Hendrickson on 05-11-2024 White blood cell count 0 SEEN /hpf [facility] aPTT Coag (PPP) [Time]Ordere d By: Tylor Hendrickson on 05-11-2024 Activated partial thromboplastin time (aPTT) in platelet poor plasma by coagulation a 39.7 Seconds High 24.1-36.2 [facility] aPTT PPPon 05-11-2024 aPTT Coag (PPP) [Time] 39.3 s High 23.0-32.4 Cl [facility] Comment on above: Order Comment: Speci men Type: BLOOD SPECIMENOrdering Facility: [facility] Address: [address] [place] [address] Performed By: #### 1 4979-9, 73568-7 ####[facility] LABCLIA [id number] [facility] [address] [address] [place] pH (U)Ordered By: Tylor antonio on 05-11-2024 Urine pH 8.0 5.0 - 8.0 [facility] 24-RZ-Xkuxbwi DOrdered By: Jing Swenson on 04-14-2024 23-MC-Jfqylok D 40.5 ng/mL [facility] Basic Metabolic Profile (BMP )on 04-14-2024 BUN/CRE 32.0 RATIO High 10-20 [facility] Comment on above: Order Comment: Order Date: 04/14/24Order Info: 0667-1 - BMP Performed By: #### L 500.2500 ####[facility] [address] [place], [address] CA,Total 9.1 mg/dL Normal 8.5-10.1 [facility] Comment on above: Order Comment: Order Date: 04/14/24Order Info: 0667-1 - BMP Performed By: #### L 500.2500 ####[facility] [address] [place], [address] Chloride [Moles/Vol] 98 mmol/L Normal 98-107 [facility] Comment on above: Order Comment: Order Date: 04/14/24Order Info: 0667 - BMP Performed By: #### L 500.2500 ####[facility] [address] [place], [place], [address] CO2 [Moles/Vol] 29.0 mmol/L Normal 21.0-32.0 [facility] Comment on above: Order Comment: Order Date: 04/14/24Order Info: 0667 - BMP Performed By: #### L 500.2500 ####[facility] [address] [place], [address] Creatinine [Mass/Vol] 0.88 mg/dL Normal 0.55-1.02 [facility] Comment on above: Order Comment: Order Date: 04/14/24Order Info: 666-05 - BMP Result Comment: The validity of the calculated GFR GFRAA in patients over70 years has not been determined. Clinical correlation isessential. Performed By: #### L 500.2500 ####[facility] [address] [place], [address] EST GFR - AA 79 mL/min Normal >60 [facility] Comment on above: Order Comment: Order Date: 04/14/24Order Info: 0667- - BMP Result Comment: Afri can [place] GFR Calc Performed By: #### L 500.2500 ####[facility] [address] [place], [address] GAP 9 Normal 5-15 [facility] Comment on above: Order Comment: Order Date: 04/14/24Order Info: 0667 - BMP Performed By: #### L 500.2500 ####[facility] [address] [place], [place], [address] GFR/1.73 sq M.predicted among non-blacks MDRD (S/P/Bld) [Vol rate/Area] 65 mL/min/{1.73_m2} Normal >60 [facility] Comment on above: Order Comment: Order Date: 04/14/24Order Info: 0667- - BMP Result Comment: Non- GFR Calc Performed By: #### L 500.2500 ####[facility] [address] [place], [address] Glucose [Mass/Vol] 97 mg/dL Normal 74-106 [facility] Comment on above: Order Comment: Order Date: 04/14/24Order Info: 666-05 - BMP Performed By: #### L 500.2500 ####[facility] [address] [place], [address] Potassium [Moles/Vol] 3.6 mmol/L Normal 3.5-5.1 [facility] Comment on above: Order Comment: Order Date: 04/14/24Order Info: 666-05 - BMP Performed By: #### L 500.2500 ####[facility] [address] [place], [address] Sodium [Moles/Vol] 137 mmol/L Normal 136-145 [facility] Comment on above: Order Comment: Order Date: 04/14/24Order Info: 666-05 - BMP Performed By: #### L 500.2500 ####[facility] [address] [place], [address] Urea nitrogen [Mass/Vol] 28 mg/dL High 7-18 [facility] Comment on above: Order Comment: Order Date: 04/14/24Order Info: 666-05 - BMP Performed By: #### L 500.2500 ####[facility] [address] [place], [address] Blood urea nitrogen (BUN)/cr eatinine ratioOrdered By: Bridget Swenson on 04-14-2024 Blood urea nitrogen (BUN)/creatinine ratio 32.0 RATIO High 10-20 [facility] Calcium [Mass/Vol]Ordered By : Bridget Swenson on 04-14-2024 Serum or plasma calcium measurement (mass/volume) 9.1 mg/dL 8.5-10.1 [facility] Carbon dioxide measurementOr dered By: Bridget Swenson on 04-14-2024 Carbon dioxide measurement 29.0 mmol/L 21.0-32.0 [facility] Chloride measurementOrdered By: Bridget Swenson on 04-14-2024 Chloride measurement 98 mmol/L 98-107 [facility] Creatinine [Mass/Vol]Ordered By: Bridget Swenson on 04-14-2024 Serum or plasma creatinine measurement (mass/volume) 0.88 mg/dL 0.55-1.02 [facility] Estimated glomerular filtrat ion rate (GFR) AmericanOrdered By: Bridget Swenson on 04-14-2024 Estimated glomerular filtration rate (GFR) 79 mL/min >60 [facility] Glomerular filtration rate ( GFR) estimationOrdered By: Bridget Swenson on 04-14-2024 Glomerular filtration rate (GFR) estimation 65 mL/min >60 [facility] Glucose measurementOrdered B y: Bridget Swenson on 04-14-2024 Glucose measurement 97 mg/dL 74-106 [facility] Intact parathyroid hormone ( iPTH) measurementOrdered By: Bridget Swenson on 04-14-2024 Intact parathyroid hormone (iPTH) measurement 106.4 pg/mL High 18.4-80.1 [facility] PTHINon 04-14-2024 PTH 106.4 pg/mL High 18.4-80.1 [facility] Comment on above: Order Comment: Order Date: 04/14/24Order Info: 0565-1 - PTHIN Performed By: #### L 506.1000, L509.1000 ####[facility] [address] [place], [address] Potassium measurementOrdered By: Bridget Swenson on 04-14-2024 Potassium measurement 3.6 mmol/L 3.5-5.1 [facility] Serum anion gap measurementO rdered By: Bridget Swenson on 04-14-2024 Serum anion gap measurement 9 5-15 [facility] Sodium levelOrdered By: Zenaida Swenson on 04-14-2024 Sodium level 137 mmol/L 136-145 [facility] Urea nitrogen [Mass/Vol]Orde red By: Bridget Swenson on 04-14-2024 Serum or plasma urea nitrogen measurement (mass/volume) 28 mg/dL High 7-18 [facility] Vitamin D,25 Hydroxyon 04-14 Vitamin D 25-OH 40.5 ng/mL Normal [facility] Comment on above: Order Comment: Order Date: 04/14/24Order Info: [id number] - VITD25 Result Comment: Nathalie min D 25(OH) Status Range Deficiency <20 ng/mL (50nmol/L) Insufficiency 20 - 30 ng/mL (50 - 75 nmol/L) Sufficiency 30 - 100 ng/mL (75 - 250 nmol/L) Toxicity >100 ng/mL (>250 nmol/L) Performed By: #### L 506.1000, L509.1000 ####[facility] [address] [place], [address] Carotid Duplex Ultrasoundon 04-01-2024 Carotid Duplex Ultrasound Normal [facility] Basophil percentageOrdered B y: Bridget Swenson on 08-27-2023 Chloride [Moles/Vol] 96 mmol/L 98-107 [facility] Glucose [Mass/Vol] 96 mg/dL 74-106 [facility] Potassium [Moles/Vol] 3.9 mmol/L 3.5-5.1 [facility] Sodium [Moles/Vol] 135 mmol/L 136-145 [facility] Laboratory - Chemistry and C hemistry - challengeOrdered By: Bridget Swenson on 08-27-2023 CO2 [Moles/Vol] 30.0 mmol/L 21.0-32.0 [facility] Natriuretic peptide B (Bld) [Mass/Vol] 43.4 pg/mL 0-100 [facility] Urea nitrogen/Creatinine [Mass ratio] 38.9 mg/mg 10-20 [facility] No Panel InformationOrdered By: Bridget Swenson on 08-27-2023 Estimated GFR (MDRD) Amer 69 mL/min >60 [facility] Comment on above: GFR Calc Estimated GFR (MDRD) Non-Af Amer 57 mL/min >60 [facility] Comment on above: Non- GFR Calc Serum or plasma calcium manuel urement (mass/volume)Ordered By: Bridget Swenson on 08-27-2023 Calcium [Mass/Vol] 9.2 mg/dL 8.5-10.1 [facility] Serum or plasma creatinine m easurement (mass/volume)Ordered By: Bridget Swenson on 08-27-2023 Creatinine [Mass/Vol] 0.98 mg/dL 0.55-1.02 [facility] Comment on above: The validity of the calculated GFR & GFRAA in patients over 70 years has not been determined. Clinical correlation is essential. Serum or plasma urea nitroge n measurement (mass/volume)Ordered By: Bridget Swenson on 08-27-2023 Urea nitrogen [Mass/Vol] 38 mg/dL 7-18 [facility] Thin prep Papanicolaou smear with manual screeningOrdered By: Bridget Swenson on 08-27-2023 Thin prep Papanicolaou smear with manual screening 9 5-15 [facility] Absolute lymphocyte countOrd ered By: Doyle Swenson on 08-11-2023 Lymphocytes Auto (Unsp spec) [#/Vol] 1.88 10*3/uL 0.83-4.51 [facility] Automated lymphocyte count a s percentage of total leukocytesOrdered By: Doyle Swenson on 08-11-2023 Lymphocytes/100 WBC Auto (Unsp spec) 23.9 % 19-41 [facility] Basophil percentageOrdered B y: Doyle Swenson on 08-11-2023 Basophils/100 WBC (Bld) 0.9 % 0-1 [facility] Bilirubin [Mass/Vol] 0.40 mg/dL 0.20-1.00 [facility] Comment on above: For patients on eltr ombopag therapy, use of Dimension Crawford TBIL is not recommended. Chloride [Moles/Vol] 102 mmol/L 98-107 [facility] Eosinophils/100 WBC (Bld) 2.0 % 0-5 [facility] Glucose [Mass/Vol] 112 mg/dL 74-106 [facility] Comment on above: Fasting Glucose resu lt from 100 to 125 mg/dL suggests IMPAIRED HOMEOSTASIS per A.D.A. criteria. Hemoglobin (Bld) [Mass/Vol] 11.4 g/dL 12.0-15.0 [facility] Monocytes/100 WBC (Bld) 8.5 % 0-10 [facility] Neutrophils (Bld) [#/Vol] 5.1 10*3/uL 2.0-7.7 [facility] Neutrophils/100 WBC (Bld) 64.3 % 47-70 [facility] Potassium [Moles/Vol] 4.4 mmol/L 3.5-5.1 [facility] Protein [Mass/Vol] 7.5 g/dL 6.4-8.2 [facility] Sodium [Moles/Vol] 138 mmol/L 136-145 [facility] WBC (Bld) [#/Vol] 7.9 10*3/uL 4.4-11.0 [facility] Determination of erythrocyte mean corpuscular volume (MCV)Ordered By: Doyle Swenson on 08-11-2023 MCV (RBC) [Entitic vol] 91.3 fL 81-99 [facility] Erythrocyte distribution wid th ratioOrdered By: Doyle Swenson on 08-11-2023 Erythrocyte distribution width (RBC) [Ratio] 14.2 % 11.6-14.6 [facility] Erythrocyte distribution wid th standard deviationOrdered By: Doyle Swenson on 08-11-2023 Erythrocyte distribution width (RBC) [Entitic vol] 47.9 fL 35.1-43.9 [facility] Hematocrit Auto (Bld) [Volum e fraction]Ordered By: Doyle Swenson on 08-11-2023 Hematocrit (Bld) [Volume fraction] 35.8 % 37-47 [facility] Immature granulocytes/100 WB C Auto (Bld)Ordered By: Doyle Swenson on 08-11-2023 Immature granulocytes/100 WBC (Bld) 0.400 % 0.0-0.9 [facility] Comment on above: IG% - Immature Granu locytes (promyelocytes, myelocytes and metamyelocytes) > 1% indicates that a LEFT SHIFT is Present. Iron measurement (mass/mass) Ordered By: Doyle Swenson on 08-11-2023 Iron (Unsp spec) [Mass/Mass] 32 ug/dL 50-170 [facility] Laboratory - Chemistry and C hemistry - challengeOrdered By: Doyle Swenson on 08-11-2023 Albumin/Globulin [Mass ratio] 0.9 {ratio} 0.9-2.4 [facility] ALP [Catalytic activity/Vol] 60 U/L 45-117 [facility] ALT [Catalytic activity/Vol] 18 U/L 13-56 [facility] CO2 [Moles/Vol] 28.0 mmol/L 21.0-32.0 [facility] Ferritin [Mass/Vol] 41 ng/mL 8-252 [facility] Globulin (S) [Mass/Vol] 4.0 g/dL 2.2-4.2 [facility] Urea nitrogen/Creatinine [Mass ratio] 36.8 mg/mg 10-20 [facility] Laboratory - Hematology and Cell countsOrdered By: Doyle Swenson on 08-11-2023 MCH (RBC) [Entitic mass] 29.1 pg 27.0-32.0 [facility] MCHC (RBC) [Mass/Vol] 31.8 g/dL 32-36 [facility] Nucleated RBC/100 WBC (Bld) [Ratio] 0 % 0-5 [facility] Platelet mean volume (Bld) [Entitic vol] 9.7 fL 6.2-12.0 [facility] Platelets (Bld) [#/Vol] 385 10*3/uL 150-450 [facility] No Panel InformationOrdered By: Doyle Swenson on 08-11-2023 Estimated GFR (MDRD) Amer 77 mL/min >60 [facility] Comment on above: GFR Calc Estimated GFR (MDRD) Non-Af Amer 63 mL/min >60 [facility] Comment on above: Non- GFR Calc RBC Auto (Bld) [#/Vol]Ordere d By: Doyle Swenson on 08-11-2023 RBC (Bld) [#/Vol] 3.92 10*6/uL 4.2-5.4 [facility] Serum or plasma calcium manuel urement (mass/volume)Ordered By: Doyle Swenson on 08-11-2023 Calcium [Mass/Vol] 8.8 mg/dL 8.5-10.1 [facility] Serum or plasma creatinine m easurement (mass/volume)Ordered By: Doyle Swenson on 08-11-2023 Creatinine [Mass/Vol] 0.90 mg/dL 0.55-1.02 [facility] Comment on above: The validity of the calculated GFR & GFRAA in patients over 70 years has not been determined. Clinical correlation is essential. Serum or plasma thyroid stim ulating hormone (TSH) measurement (units/volume)Ordered By: Doyle Swenson on 08-11-2023 TSH Qn 1.34 uIU/mL 0.358-3.74 [facility] Serum or plasma urea nitroge n measurement (mass/volume)Ordered By: Doyle Swenson on 08-11-2023 Urea nitrogen [Mass/Vol] 33 mg/dL 7-18 [facility] Thin prep Papanicolaou smear with manual screeningOrdered By: Doyle Swenson on 08-11-2023 Thin prep Papanicolaou smear with manual screening 3.5 g/dL 3.2-5.0 [facility] Thin prep Papanicolaou smear with manual screening 21 U/L 15-37 [facility] Thin prep Papanicolaou smear with manual screening 8 5-15 [facility] Basophil percentageOrdered B y: Doyle Swenson on 08-06-2023 Chloride [Moles/Vol] 104 mmol/L 98-107 [facility] Glucose [Mass/Vol] 102 mg/dL 74-106 [facility] Comment on above: Fasting Glucose resu lt from 100 to 125 mg/dL suggests IMPAIRED HOMEOSTASIS per A.D.A. criteria. Potassium [Moles/Vol] 4.5 mmol/L 3.5-5.1 [facility] Comment on above: Slight Hemolysis, Re sult may be falsely increased. Sodium [Moles/Vol] 136 mmol/L 136-145 [facility] Laboratory - Chemistry and C hemistry - challengeOrdered By: Doyle Swenson on 08-06-2023 CO2 [Moles/Vol] 27.0 mmol/L 21.0-32.0 [facility] Urea nitrogen/Creatinine [Mass ratio] 22.6 mg/mg 10-20 [facility] No Panel InformationOrdered By: Doyle Swenson on 03-27-2024 Estimated GFR (MDRD) Amer 63 mL/min >60 [facility] Comment on above: GFR Calc Estimated GFR (MDRD) Non-Af Amer 52 mL/min >60 [facility] Comment on above: Non- GFR Calc Serum or plasma calcium manuel urement (mass/volume)Ordered By: Doyle Swenson on 08-06-2023 Calcium [Mass/Vol] 8.5 mg/dL 8.5-10.1 [facility] Serum or plasma creatinine m easurement (mass/volume)Ordered By: Doyle Swenson on 08-06-2023 Creatinine [Mass/Vol] 1.06 mg/dL 0.55-1.02 [facility] Comment on above: The validity of the calculated GFR & GFRAA in patients over 70 years has not been determined. Clinical correlation is essential. Serum or plasma urea nitroge n measurement (mass/volume)Ordered By: Doyel Swenson on 08-06-2023 Urea nitrogen [Mass/Vol] 24 mg/dL 7-18 [facility] Thin prep Papanicolaou smear with manual screeningOrdered By: Doyle Swenson on 08-06-2023 Thin prep Papanicolaou smear with manual screening 5 5-15 [facility] Basophil percentageOrdered B y: Doyle Swenson on 06-09-2023 Bilirubin [Mass/Vol] 0.40 mg/dL 0.20-1.00 [facility] Comment on above: For patients on eltr ombopag therapy, use of Dimension Crawford TBIL is not recommended. Chloride [Moles/Vol] 99 mmol/L 98-107 [facility] Glucose [Mass/Vol] 96 mg/dL 74-106 [facility] Hemoglobin (Bld) [Mass/Vol] 11.0 g/dL 12.0-15.0 [facility] Potassium [Moles/Vol] 4.4 mmol/L 3.5-5.1 [facility] Protein [Mass/Vol] 7.5 g/dL 6.4-8.2 [facility] Sodium [Moles/Vol] 134 mmol/L 136-145 [facility] WBC (Bld) [#/Vol] 6.8 10*3/uL 4.4-11.0 [facility] Determination of erythrocyte mean corpuscular volume (MCV)Ordered By: Doyle Swenson on 06-09-2023 MCV (RBC) [Entitic vol] 95.3 fL 81-99 [facility] Erythrocyte distribution wid th ratioOrdered By: Doyle Swenson on 06-09-2023 Erythrocyte distribution width (RBC) [Ratio] 13.6 % 11.6-14.6 [facility] Erythrocyte distribution wid th standard deviationOrdered By: Doyle Swenson on 06-09-2023 Erythrocyte distribution width (RBC) [Entitic vol] 48.3 fL 35.1-43.9 [facility] Erythrocyte sedimentation ra teOrdered By: Doyle Swenson on 06-09-2023 ESR (Bld) [Velocity] 50 mm/h 0-30 [facility] Hematocrit Auto (Bld) [Volum e fraction]Ordered By: Doyle Swenson on 06-09-2023 Hematocrit (Bld) [Volume fraction] 36.3 % 37-47 [facility] Laboratory - Chemistry and C hemistry - challengeOrdered By: Doyle Swenson on 06-09-2023 Albumin/Globulin [Mass ratio] 0.8 {ratio} 0.9-2.4 [facility] ALP [Catalytic activity/Vol] 63 U/L 45-117 [facility] ALT [Catalytic activity/Vol] 24 U/L 13-56 [facility] CO2 [Moles/Vol] 31.0 mmol/L 21.0-32.0 [facility] Globulin (S) [Mass/Vol] 4.2 g/dL 2.2-4.2 [facility] Natriuretic peptide B (Bld) [Mass/Vol] 90.9 pg/mL 0-100 [facility] Urea nitrogen/Creatinine [Mass ratio] 35.1 mg/mg 10-20 [facility] Laboratory - Hematology and Cell countsOrdered By: Doyle Swenson on 06-09-2023 MCH (RBC) [Entitic mass] 28.9 pg 27.0-32.0 [facility] MCHC (RBC) [Mass/Vol] 30.3 g/dL 32-36 [facility] Platelets (Bld) [#/Vol] 353 10*3/uL 150-450 [facility] No Panel InformationOrdered By: Doyle Swenson on 06-09-2023 C-Reactive Protein Extended Range 21.90 mg/L 0.0-3.0 [facility] Comment on above: C-Reactive Protein ( CRP) provides useful information for thediagnosis, therapy and monitoring of inflammatory processesand associated diseases. For the evaluation of Relative Riskfor Cardiovascular Disease, a High Sensitivity CRP (HSCRP)should be ordered. Estimated GFR (MDRD) Amer 84 mL/min >60 [facility] Comment on above: GFR Calc Estimated GFR (MDRD) Non-Af Amer 69 mL/min >60 [facility] Comment on above: Non- GFR Calc Platelet mean volume Mauricio-Ec ker (Bld) [Entitic vol]Ordered By: Doyle Swenson on 06-09-2023 Platelet mean volume (Bld) [Entitic vol] 10.0 fL 6.2-12.0 [facility] RBC Auto (Bld) [#/Vol]Ordere d By: Doyle Swenson on 06-09-2023 RBC (Bld) [#/Vol] 3.81 10*6/uL 4.2-5.4 [facility] Serum or plasma calcium manuel urement (mass/volume)Ordered By: Doyle Swenson on 06-09-2023 Calcium [Mass/Vol] 9.5 mg/dL 8.5-10.1 [facility] Serum or plasma creatinine m easurement (mass/volume)Ordered By: Doyle Swenson on 06-09-2023 Creatinine [Mass/Vol] 0.83 mg/dL 0.55-1.02 [facility] Comment on above: The validity of the calculated GFR & GFRAA in patients over 70 years has not been determined. Clinical correlation is essential. Serum or plasma thyroid stim ulating hormone (TSH) measurement (units/volume)Ordered By: Doyle Swenson on 06-09-2023 TSH Qn 0.76 uIU/mL 0.358-3.74 [facility] Serum or plasma urea nitroge n measurement (mass/volume)Ordered By: Doyle Swenson on 06-09-2023 Urea nitrogen [Mass/Vol] 29 mg/dL 7-18 [facility] Serum or plasma uric acid me asurement (mass/volume)Ordered By: Doyle Swenson on 06-09-2023 Urate [Mass/Vol] 6.4 mg/dL 2.6-6.0 [facility] Comment on above: The drugs N-Acetylcy steine and Metamizole may falsely depress this assay. Thin prep Papanicolaou smear with manual screeningOrdered By: Doyle Swenson on 06-09-2023 Thin prep Papanicolaou smear with manual screening 3.3 g/dL 3.2-5.0 [facility] Thin prep Papanicolaou smear with manual screening 22 U/L 15-37 [facility] Thin prep Papanicolaou smear with manual screening 4 5-15 [facility] Absolute lymphocyte countOrd ered By: Duglas Shields on 05-12-2023 Lymphocytes Auto (Unsp spec) [#/Vol] 0.93 10*3/uL 0.83-4.51 [facility] Basophil percentageOrdered B y: Duglas Shields on 05-12-2023 Basophil percentage 0-5 SEEN /hpf 0-5 [facility] Basophils/100 WBC (Bld) 0.7 % 0-1 [facility] Chloride [Moles/Vol] 100 mmol/L 98-107 [facility] Eosinophils/100 WBC (Bld) 1.3 % 0-5 [facility] Glucose [Mass/Vol] 108 mg/dL 74-106 [facility] Comment on above: Fasting Glucose resu lt from 100 to 125 mg/dL suggests IMPAIRED HOMEOSTASIS per A.D.A. criteria. Neutrophils (Bld) [#/Vol] 4.7 10*3/uL 2.0-7.7 [facility] Neutrophils/100 WBC (Bld) 65.0 % 47-70 [facility] Potassium [Moles/Vol] 3.9 mmol/L 3.5-5.1 [facility] Sodium [Moles/Vol] 135 mmol/L 136-145 [facility] WBC (Bld) [#/Vol] 7.2 10*3/uL 4.4-11.0 [facility] Bilirubin Test strip Ql (U)O rdered By: Duglas Shields on 05-12-2023 Bilirubin Ql (U) Negative Negative [facility] Blood erythrocytes count (nu mber/volume)Ordered By: Duglas Shields on 05-12-2023 RBC (Bld) [#/Vol] 3.68 10*6/uL 4.2-5.4 [facility] Blood hemoglobin measurement (mass/volume)Ordered By: Duglas Shields on 05-12-2023 Hemoglobin (Bld) [Mass/Vol] 10.6 g/dL 12.0-15.0 [facility] Blood lymphocytes/100 leukoc ytesOrdered By: Duglas Shields on 05-12-2023 Lymphocytes/100 WBC (Bld) 13.0 % 19-41 [facility] Blood monocytes/100 leukocyt esOrdered By: Duglas Shields on 05-12-2023 Monocytes/100 WBC (Bld) 19.2 % 0-10 [facility] Blood platelet mean volumeOr dered By: Duglas Shields on 05-12-2023 Platelet mean volume (Bld) [Entitic vol] 9.5 fL 6.2-12.0 [facility] Determination of erythrocyte mean corpuscular volume (MCV)Ordered By: Duglas Shields on 05-12-2023 MCV (RBC) [Entitic vol] 92.4 fL 81-99 [facility] Hematocrit Auto (Bld) [Volum e fraction]Ordered By: Duglas Shields on 05-12-2023 Hematocrit (Bld) [Volume fraction] 34.0 % 37-47 [facility] INR in Blood by Coagulation assayOrdered By: Duglas Shields on 05-12-2023 INR Coag (Bld) [Relative time] 2.2 {INR} [facility] Influenza virus A and B and SARS-CoV-2 (COVID-19) Ag panel - Upper respiratory specimOrdered By: Duglas Shields on 05-12-2023 SARS-CoV-2 (COVID-19) RNA RHYS+probe Ql (Resp) [facility] Ketones Test strip Ql (U)Ord ered By: Duglas Shields on 05-12-2023 Ketones Ql (U) Negative Negative [facility] Laboratory - Chemistry and C hemistry - challengeOrdered By: Duglas Shields on 05-12-2023 CO2 [Moles/Vol] 30.0 mmol/L 21.0-32.0 [facility] Urea nitrogen/Creatinine [Mass ratio] 18.0 mg/mg 10-20 [facility] Laboratory - CoagulationOrde red By: Duglas Shields on 05-12-2023 PT Coag (PPP) [Time] 24.4 s 11.7-14.9 [facility] Laboratory - Hematology and Cell countsOrdered By: Duglas Shields on 05-12-2023 Erythrocyte distribution width (RBC) [Entitic vol] 46.5 fL 35.1-43.9 [facility] Erythrocyte distribution width (RBC) [Ratio] 13.5 % 11.6-14.6 [facility] Immature granulocytes/100 WBC (Bld) 0.800 % 0.0-0.9 [facility] Comment on above: IG% - Immature Granu locytes (promyelocytes, myelocytes and metamyelocytes) > 1% indicates that a LEFT SHIFT is Present. MCH (RBC) [Entitic mass] 28.8 pg 27.0-32.0 [facility] Nucleated RBC/100 WBC (Bld) [Ratio] 0 % 0-5 [facility] MCHC Auto (RBC) [Mass/Vol]Or dered By: Duglas Shields on 05-12-2023 MCHC (RBC) [Mass/Vol] 31.2 g/dL 32-36 [facility] Mucus LM Ql (Urine sed)Order ed By: Duglas Shields on 05-12-2023 Mucus Ql (Urine sed) 0 SEEN /hpf [facility] Nitrite Test strip Ql (U)Ord ered By: Duglas Shields on 05-12-2023 Nitrite Ql (U) Negative Negative [facility] No Panel InformationOrdered By: Duglas Shields on 05-12-2023 Estimated GFR (MDRD) Amer 90 mL/min >60 [facility] Comment on above: GFR Calc Estimated GFR (MDRD) Non-Af Amer 74 mL/min >60 [facility] Comment on above: Non- GFR Calc Platelets bldOrdered By: Sharda Shields on 05-12-2023 Platelets (Bld) [#/Vol] 362 10*3/uL 150-450 [facility] Protein Test strip Ql (U)Ord ered By: Duglas Shields on 05-12-2023 Protein Ql (U) 30 mg/dl Negative [facility] Serum or plasma calcium manuel urement (mass/volume)Ordered By: Duglas Shields on 05-12-2023 Calcium [Mass/Vol] 9.2 mg/dL 8.5-10.1 [facility] Serum or plasma creatinine m easurement (mass/volume)Ordered By: Duglas Shields on 05-12-2023 Creatinine [Mass/Vol] 0.78 mg/dL 0.55-1.02 [facility] Comment on above: The validity of the calculated GFR & GFRAA in patients over 70 years has not been determined. Clinical correlation is essential. Serum or plasma urea nitroge n measurement (mass/volume)Ordered By: Duglas Shields on 05-12-2023 Urea nitrogen [Mass/Vol] 14 mg/dL 7-18 [facility] Squamous epithelial cells de tection in urine sediment by light microscopyOrdered By: Duglas Shields on 05-12-2023 Epithelial cells.squamous LM Ql (Urine sed) 0-5 SEEN /hpf 5-10 [facility] Thin prep Papanicolaou smear with manual screeningOrdered By: Duglas Shields on 05-12-2023 Thin prep Papanicolaou smear with manual screening 5 5-15 [facility] Upper respiratory specimen i nfluenza A virus, influenza B virus, and severe acute resOrdered By: Duglas Shields on 05-12-2023 Upper respiratory specimen influenza A virus, influenza B virus, and severe acute res [facility] Upper respiratory specimen i nfluenza A virus, influenza B virus, and severe acute respiratory syndromOrdered By: Duglas Shields on 05-12-2023 Upper respiratory specimen influenza A virus, influenza B virus, and severe acute respiratory syndrom [facility] Urine blood detectionOrdered By: Duglas Shields on 05-12-2023 RBC Ql (U) 10 /ul Negative [facility] RBC Ql (U) 0-5 SEEN /hpf 0-5 [facility] Urine clarityOrdered By: Sharda Shields on 05-12-2023 Clarity (U) Clear Clear [facility] Urine color determinationOrd ered By: Duglas Shields on 05-12-2023 Color (U) Straw Yellow [facility] Urine glucose detectionOrder ed By: Duglas Shields on 05-12-2023 Glucose Ql (U) Normal mg/dl Normal [facility] Urine leukocyte esterase det ection by dipstickOrdered By: Duglas Shields on 05-12-2023 Leukocyte esterase Test strip Ql (U) Negative Negative [facility] Urine pHOrdered By: Duglas abreu on 05-12-2023 pH (U) 8.0 [pH] 5.0 - 8.0 [facility] Urine sediment bacteria coun t by microscopy (number/high power field)Ordered By: Duglas Shields on 05-12-2023 Bacteria LM.HPF (Urine sed) [#/Area] 0 /[HPF] None Seen [facility] Urine specific gravity measu rementOrdered By: Duglas Shields on 05-12-2023 Specific gravity (U) [Rel density] 1.010 1.002-1.030 [facility] Urobilinogen Auto test strip Ql (U)Ordered By: Duglas Shields on 05-12-2023 Urobilinogen Ql (U) Normal mg/dl Normal [facility] Serum or plasma ferritin fran surement (mass/volume)Ordered By: Juan Jose Thomas on 02-25-2023 Ferritin [Mass/Vol] 90 ng/mL 8-252 [facility] Basophil percentageOrdered B y: Doyle Swenson on 12-18-2022 Chloride [Moles/Vol] 101 mmol/L 98-107 [facility] Glucose [Mass/Vol] 91 mg/dL 74-106 [facility] Potassium [Moles/Vol] 4.7 mmol/L 3.5-5.1 [facility] Sodium [Moles/Vol] 134 mmol/L 136-145 [facility] WBC (Bld) [#/Vol] 6.5 10*3/uL 4.4-11.0 [facility] Blood erythrocytes count (nu mber/volume)Ordered By: Doyle Swenson on 12-18-2022 RBC (Bld) [#/Vol] 3.92 10*6/uL 4.2-5.4 [facility] Blood hemoglobin measurement (mass/volume)Ordered By: Doyle Swenson on 12-18-2022 Hemoglobin (Bld) [Mass/Vol] 11.8 g/dL 12.0-15.0 [facility] Blood platelet mean volumeOr dered By: Doyle Swenson on 12-18-2022 Platelet mean volume (Bld) [Entitic vol] 10.2 fL 6.2-12.0 [facility] Determination of erythrocyte mean corpuscular volume (MCV)Ordered By: Doyle Swenson on 12-18-2022 MCV (RBC) [Entitic vol] 98.5 fL 81-99 [facility] Hematocrit Auto (Bld) [Volum e fraction]Ordered By: Doyle Swenson on 12-18-2022 Hematocrit (Bld) [Volume fraction] 38.6 % 37-47 [facility] INR in Blood by Coagulation assayOrdered By: Doyle Swenson on 12-18-2022 INR Coag (Bld) [Relative time] 2.1 {INR} [facility] Iron measurement (mass/mass) Ordered By: Doyle Swenson on 12-18-2022 Iron (Unsp spec) [Mass/Mass] 61 ug/dL 50-170 [facility] Laboratory - Chemistry and C hemistry - challengeOrdered By: Doyle Swenson on 12-18-2022 CO2 [Moles/Vol] 27.0 mmol/L 21.0-32.0 [facility] Natriuretic peptide B (Bld) [Mass/Vol] 44.6 pg/mL 0-100 [facility] Urea nitrogen/Creatinine [Mass ratio] 30.3 mg/mg 10-20 [facility] Laboratory - CoagulationOrde red By: Doyle Swenson on 12-18-2022 PT Coag (PPP) [Time] 23.4 s 11.7-14.9 [facility] Laboratory - Hematology and Cell countsOrdered By: Doyle Swenson on 12-18-2022 Erythrocyte distribution width (RBC) [Entitic vol] 45.0 fL 35.1-43.9 [facility] Erythrocyte distribution width (RBC) [Ratio] 12.5 % 11.6-14.6 [facility] MCH (RBC) [Entitic mass] 30.1 pg 27.0-32.0 [facility] MCHC Auto (RBC) [Mass/Vol]Or dered By: Doyle Swenson on 12-18-2022 MCHC (RBC) [Mass/Vol] 30.6 g/dL 32-36 [facility] No Panel InformationOrdered By: Doyle Swenson on 12-18-2022 Estimated GFR (MDRD) Amer 74 mL/min >60 [facility] Comment on above: GFR Calc Estimated GFR (MDRD) Non-Af Amer 61 mL/min >60 [facility] Comment on above: Non- GFR Calc Thyroid Stimulating Hormone (TSH) 1.37 uIU/mL 0.358-3.74 [facility] Platelets bldOrdered By: Fawn aramis Leela on 12-18-2022 Platelets (Bld) [#/Vol] 319 10*3/uL 150-450 [facility] Serum or plasma calcium manuel urement (mass/volume)Ordered By: Doyle Swenson on 12-18-2022 Calcium [Mass/Vol] 9.1 mg/dL 8.5-10.1 [facility] Serum or plasma creatinine m easurement (mass/volume)Ordered By: Doyle Swenson on 12-18-2022 Creatinine [Mass/Vol] 0.92 mg/dL 0.55-1.02 [facility] Comment on above: The validity of the calculated GFR & GFRAA in patients over 70 years has not been determined. Clinical correlation is essential. Serum or plasma ferritin fran surement (mass/volume)Ordered By: Doyle Swenson on 12-18-2022 Ferritin [Mass/Vol] 66 ng/mL 8-252 [facility] Serum or plasma urea nitroge n measurement (mass/volume)Ordered By: Doyle Swenson on 12-18-2022 Urea nitrogen [Mass/Vol] 28 mg/dL 7-18 [facility] Thin prep Papanicolaou smear with manual screeningOrdered By: Doyle Swenson on 12-18-2022 Thin prep Papanicolaou smear with manual screening 6 5-15 [facility] Basophil percentageOrdered B y: Murtaza Charles on 11-06-2022 Bilirubin [Mass/Vol] 0.40 mg/dL 0.20-1.00 [facility] Comment on above: For patients on eltr ombopag therapy, use of Dimension [place] TBIL is not recommended. Chloride [Moles/Vol] 101 mmol/L 98-107 [facility] Glucose [Mass/Vol] 107 mg/dL 74-106 [facility] Comment on above: Fasting Glucose resu lt from 100 to 125 mg/dL suggests IMPAIRED HOMEOSTASIS per A.D.A. criteria. Potassium [Moles/Vol] 4.3 mmol/L 3.5-5.1 [facility] Protein [Mass/Vol] 7.7 g/dL 6.4-8.2 [facility] Sodium [Moles/Vol] 137 mmol/L 136-145 [facility] Laboratory - Chemistry and C hemistry - challengeOrdered By: Murtaza Charles on 11-06-2022 Natriuretic peptide B (Bld) [Mass/Vol] 49.3 pg/mL 0-100 [facility] ALP [Catalytic activity/Vol] 61 U/L 45-117 [facility] ALT [Catalytic activity/Vol] 22 U/L 13-56 [facility] CO2 [Moles/Vol] 30.0 mmol/L 21.0-32.0 [facility] Globulin (S) [Mass/Vol] 4.1 g/dL 2.2-4.2 [facility] Urea nitrogen/Creatinine [Mass ratio] 26.4 mg/mg 10-20 [facility] No Panel InformationOrdered By: Murtaza Charles on 11-06-2022 Estimated GFR (MDRD) Amer 84 mL/min >60 [facility] Comment on above: GFR Calc Estimated GFR (MDRD) Non-Af Amer 69 mL/min >60 [facility] Comment on above: Non- GFR Calc Troponin I High Sensitivity 10 pg/mL 3.0-54.0 [facility] Comment on above: Please Note: New Padmini t Units and Gender Specific Reference Ranges. For more information see Policy Stat Procedure [place] High Sensitivity Troponin (TNIH) and attachments. Serum or plasma albumin manuel urement (mass/volume)Ordered By: Murtaza Charles on 11-06-2022 Albumin [Mass/Vol] 3.6 g/dL 3.2-5.0 [facility] Serum or plasma albumin/glob ulin mass ratioOrdered By: Murtaza Charles on 11-06-2022 Albumin/Globulin [Mass ratio] 0.9 {ratio} 0.9-2.4 [facility] Serum or plasma calcium manuel urement (mass/volume)Ordered By: Murtaza Charles on 11-06-2022 Calcium [Mass/Vol] 9.0 mg/dL 8.5-10.1 [facility] Serum or plasma creatinine m easurement (mass/volume)Ordered By: Murtaza Charles on 11-06-2022 Creatinine [Mass/Vol] 0.83 mg/dL 0.55-1.02 [facility] Comment on above: The validity of the calculated GFR & GFRAA in patients over 70 years has not been determined. Clinical correlation is essential. Serum or plasma urea nitroge n measurement (mass/volume)Ordered By: Murtaza Charles on 11-06-2022 Urea nitrogen [Mass/Vol] 22 mg/dL 7-18 [facility] Thin prep Papanicolaou smear with manual screeningOrdered By: Murtaza Charles on 11-06-2022 Thin prep Papanicolaou smear with manual screening 22 U/L 15-37 [facility] Thin prep Papanicolaou smear with manual screening 6 5-15 [facility] Absolute lymphocyte countOrd ered By: Dr. Swenson on 08-26-2022 Lymphocytes Auto (Unsp spec) [#/Vol] 1.93 10*3/uL 0.83-4.51 [facility] Basophil percentageOrdered B y: Dr. Swenson on 08-26-2022 Basophils/100 WBC (Bld) 0.7 % 0-1 [facility] Bilirubin [Mass/Vol] 0.40 mg/dL 0.20-1.00 [facility] Comment on above: For patients on eltr ombopag therapy, use of Dimension [place] TBIL is not recommended. Chloride [Moles/Vol] 101 mmol/L 98-107 [facility] Eosinophils/100 WBC (Bld) 1.2 % 0-5 [facility] Glucose [Mass/Vol] 110 mg/dL 74-106 [facility] Comment on above: Fasting Glucose resu lt from 100 to 125 mg/dL suggests IMPAIRED HOMEOSTASIS per A.D.A. criteria. Neutrophils (Bld) [#/Vol] 5.2 10*3/uL 2.0-7.7 [facility] Neutrophils/100 WBC (Bld) 64.4 % 47-70 [facility] Potassium [Moles/Vol] 3.9 mmol/L 3.5-5.1 [facility] Protein [Mass/Vol] 7.3 g/dL 6.4-8.2 [facility] Sodium [Moles/Vol] 136 mmol/L 136-145 [facility] WBC (Bld) [#/Vol] 8.1 10*3/uL 4.4-11.0 [facility] Blood erythrocytes count (nu mber/volume)Ordered By: Dr. Swenson on 08-26-2022 RBC (Bld) [#/Vol] 4.36 10*6/uL 4.2-5.4 [facility] Blood hemoglobin measurement (mass/volume)Ordered By: Dr. Swenson on 08-26-2022 Hemoglobin (Bld) [Mass/Vol] 13.1 g/dL 12.0-15.0 [facility] Blood lymphocytes/100 leukoc ytesOrdered By: Dr. Swenson on 08-26-2022 Lymphocytes/100 WBC (Bld) 23.7 % 19-41 [facility] Blood monocytes/100 leukocyt esOrdered By: Dr. Swenson on 08-26-2022 Monocytes/100 WBC (Bld) 8.5 % 0-10 [facility] Blood platelet mean volumeOr dered By: Dr. Swenson on 08-26-2022 Platelet mean volume (Bld) [Entitic vol] 9.8 fL 6.2-12.0 [facility] Determination of erythrocyte mean corpuscular volume (MCV)Ordered By: Dr. Swenson on 08-26-2022 MCV (RBC) [Entitic vol] 95.2 fL 81-99 [facility] Direct bilirubinOrdered By: Dr. Swenson on 08-26-2022 Bilirubin.direct [Mass/Vol] 0.11 mg/dL 0.00-0.30 [facility] Erythrocyte sedimentation ra teOrdered By: Dr. Swenson on 08-26-2022 ESR (Bld) [Velocity] 15 mm/h 0-30 [facility] Hematocrit Auto (Bld) [Volum e fraction]Ordered By: Dr. Swenson on 08-26-2022 Hematocrit (Bld) [Volume fraction] 41.5 % 37-47 [facility] INR in Blood by Coagulation assayOrdered By: Dr. Swenson on 08-26-2022 INR Coag (Bld) [Relative time] 1.3 {INR} [facility] Laboratory - Chemistry and C hemistry - challengeOrdered By: Dr. Swenson on 08-26-2022 ALP [Catalytic activity/Vol] 59 U/L 45-117 [facility] ALT [Catalytic activity/Vol] 23 U/L 13-56 [facility] CO2 [Moles/Vol] 31.0 mmol/L 21.0-32.0 [facility] Globulin (S) [Mass/Vol] 3.5 g/dL 2.2-4.2 [facility] Urea nitrogen/Creatinine [Mass ratio] 27.7 mg/mg 10-20 [facility] Laboratory - CoagulationOrde red By: Dr. Swenson on 08-26-2022 PT Coag (PPP) [Time] 15.5 s 11.7-14.9 [facility] Laboratory - Hematology and Cell countsOrdered By: Dr. Swenson on 08-26-2022 Erythrocyte distribution width (RBC) [Entitic vol] 51.2 fL 35.1-43.9 [facility] Erythrocyte distribution width (RBC) [Ratio] 14.6 % 11.6-14.6 [facility] Immature granulocytes/100 WBC (Bld) 1.500 % 0.0-0.9 [facility] Comment on above: IG% - Immature Granu locytes (promyelocytes, myelocytes and metamyelocytes) > 1% indicates that a LEFT SHIFT is Present. MCH (RBC) [Entitic mass] 30.0 pg 27.0-32.0 [facility] Nucleated RBC/100 WBC (Bld) [Ratio] 0 % 0-5 [facility] MCHC Auto (RBC) [Mass/Vol]Or dered By: Dr. Swenson on 08-26-2022 MCHC (RBC) [Mass/Vol] 31.6 g/dL 32-36 [facility] No Panel InformationOrdered By: Dr. Swenson on 08-26-2022 Estimated GFR (MDRD) Amer 98 mL/min >60 [facility] Comment on above: GFR Calc Estimated GFR (MDRD) Non-Af Amer 81 mL/min >60 [facility] Comment on above: Non- GFR Calc Ionized Calcium 4.9 mg/dL 4.5-5.6 [facility] Comment on above: Performed at: [facility] [address] [id number] Director: Arjun Pisano PhD, Phone: [phone] Parathyroid Hormone (Intact) 92.1 pg/mL 18.4-80.1 [facility] Thyroid Stimulating Hormone (TSH) 1.08 uIU/mL 0.358-3.74 [facility] Vitamin D 25-Hydroxy 39.6 ng/mL [facility] Comment on above: Vitamin D 25(OH) Sta tus Range Deficiency <20 ng/mL (50nmol/L) Insufficiency 20 - 30 ng/mL (50 - 75 nmol/L) Sufficiency 30 - 100 ng/mL (75 - 250 nmol/L) Toxicity >100 ng/mL (>250 nmol/L) Platelets bldOrdered By: Dr. Swenson on 08-26-2022 Platelets (Bld) [#/Vol] 365 10*3/uL 150-450 [facility] Serum or plasma albumin manuel urement (mass/volume)Ordered By: Dr. Swenson on 08-26-2022 Albumin [Mass/Vol] 3.8 g/dL 3.2-5.0 [facility] Serum or plasma calcium manuel urement (mass/volume)Ordered By: Dr. Swenson on 08-26-2022 Calcium [Mass/Vol] 9.2 mg/dL 8.5-10.1 [facility] Serum or plasma creatinine m easurement (mass/volume)Ordered By: Dr. Swenson on 08-26-2022 Creatinine [Mass/Vol] 0.72 mg/dL 0.55-1.02 [facility] Comment on above: The validity of the calculated GFR & GFRAA in patients over 70 years has not been determined. Clinical correlation is essential. Serum or plasma urea nitroge n measurement (mass/volume)Ordered By: Dr. Swenson on 08-26-2022 Urea nitrogen [Mass/Vol] 20 mg/dL 7-18 [facility] Thin prep Papanicolaou smear with manual screeningOrdered By: Dr. Swenson on 08-26-2022 Thin prep Papanicolaou smear with manual screening 21 U/L 15-37 [facility] [facility] Thin prep Papanicolaou smear with manual screening 4 5-15 [facility] Basophil percentageOrdered B y: Dr. Swenson on 05-20-2022 Basophil percentage 120 mg/dL 74-106 [facility] Basophil percentage 4.9 mg/dL 2.5-4.9 [facility] Basophil percentage 138 mmol/L 136-145 [facility] Basophil percentage 4.1 mmol/L 3.5-5.1 [facility] Basophil percentage 100 mmol/L 98-107 [facility] Chloride [Moles/Vol] 100 mmol/L 98-107 [facility] Glucose [Mass/Vol] 120 mg/dL 74-106 [facility] Comment on above: Fasting Glucose resu lt from 100 to 125 mg/dL suggests IMPAIRED HOMEOSTASIS per A.D.A. criteria. Potassium [Moles/Vol] 4.1 mmol/L 3.5-5.1 [facility] Sodium [Moles/Vol] 138 mmol/L 136-145 [facility] Laboratory - Chemistry and C hemistry - challengeOrdered By: Dr. Swenson on 05-20-2022 CO2 [Moles/Vol] 29.0 mmol/L 21.0-32.0 [facility] Magnesium [Mass/Vol] 2.2 mg/dL 1.6-2.6 [facility] Urea nitrogen/Creatinine [Mass ratio] 27.8 mg/mg 10-20 [facility] No Panel InformationOrdered By: Dr. Swenson on 05-20-2022 Ionized Calcium 6.0 mg/dL 4.5-5.6 [facility] Comment on above: Performed at: [address] [id number] Director: Arjun Pisano PhD, Phone: [phone] 6.0 mg/dL 4.5-5.6 [facility] Estimated GFR (MDRD) Amer 73 mL/min >60 [facility] Comment on above: GFR Calc Estimated GFR (MDRD) Non-Af Amer 60 mL/min >60 [facility] Comment on above: Non- GFR Calc Parathyroid Hormone (Intact) 12.5 pg/mL 18.4-80.1 [facility] Thyroid Stimulating Hormone (TSH) 0.80 uIU/mL 0.358-3.74 [facility] Vitamin D 25-Hydroxy 71.5 ng/mL [facility] Comment on above: Vitamin D 25(OH) Sta tus Range Deficiency <20 ng/mL (50nmol/L) Insufficiency 20 - 30 ng/mL (50 - 75 nmol/L) Sufficiency 30 - 100 ng/mL (75 - 250 nmol/L) Toxicity >100 ng/mL (>250 nmol/L) 60 mL/min >60 [facility] 73 mL/min >60 [facility] 27.8 RATIO 10-20 [facility] 2.2 mg/dL 1.6-2.6 [facility] 29.0 mmol/L 21.0-32.0 [facility] 0.80 uIU/mL 0.358-3.74 [facility] 71.5 ng/mL [facility] 12.5 pg/mL 18.4-80.1 [facility] Serum or plasma calcium manuel urement (mass/volume)Ordered By: Dr. Swenson on 05-20-2022 Calcium [Mass/Vol] 10.3 mg/dL 8.5-10.1 [facility] Serum or plasma creatinine m easurement (mass/volume)Ordered By: Dr. Swenson on 05-20-2022 Creatinine [Mass/Vol] 0.94 mg/dL 0.55-1.02 [facility] Comment on above: The validity of the calculated GFR & GFRAA in patients over 70 years has not been determined. Clinical correlation is essential. Serum or plasma urea nitroge n measurement (mass/volume)Ordered By: Dr. Swenson on 05-20-2022 Urea nitrogen [Mass/Vol] 26 mg/dL 7-18 [facility] Thin prep Papanicolaou smear with manual screeningOrdered By: Dr. Swenson on 05-20-2022 Thin prep Papanicolaou smear with manual screening 9 5-15 [facility] Basophil percentageOrdered B y: Zackary Lyon on 05-14-2022 Basophil percentage 6.1 g/dL 6.4-8.2 [facility] Basophil percentage 0.30 mg/dL 0.20-1.00 [facility] Bilirubin [Mass/Vol] 0.30 mg/dL 0.20-1.00 [facility] Comment on above: For patients on eltr ombopag therapy, use of Dimension Crawford TBIL is not recommended. Protein [Mass/Vol] 6.1 g/dL 6.4-8.2 [facility] Direct bilirubinOrdered By: Zackary Lyon on 05-14-2022 Bilirubin.direct [Mass/Vol] 0.10 mg/dL 0.00-0.30 [facility] INR in Blood by Coagulation assayOrdered By: Zackary Lyon on 05-14-2022 INR Coag (Bld) [Relative time] 1.7 {INR} [facility] Laboratory - Chemistry and C hemistry - challengeOrdered By: Zackary Lyon on 05-14-2022 ALP [Catalytic activity/Vol] 67 U/L [facility] ALT [Catalytic activity/Vol] 22 U/L [facility] Globulin (S) [Mass/Vol] 3.2 g/dL 2.2-4.2 [facility] Laboratory - CoagulationOrde red By: Zackary Lyon on 05-14-2022 PT Coag (PPP) [Time] 19.9 s 11.7-14.9 [facility] No Panel InformationOrdered By: Zackary Lyon on 05-14-2022 19.9 SECONDS 11.7-14.9 [facility] 3.2 g/dL 2.2-4.2 [facility] 67 U/L [facility] 22 U/L [facility] Serum or plasma albumin manuel urement (mass/volume)Ordered By: Zackary Lyon on 05-14-2022 Albumin [Mass/Vol] 2.9 g/dL 3.2-5.0 [facility] Thin prep Papanicolaou smear with manual screeningOrdered By: Zackary Lyon on 05-14-2022 Thin prep Papanicolaou smear with manual screening 20 U/L 15-37 [facility] Absolute lymphocyte countOrd ered By: Zackary Lyon on 04-29-2022 Lymphocytes Auto (Unsp spec) [#/Vol] 2.40 10*3/uL 0.83-4.51 [facility] Basophil percentageOrdered B y: Zackary Lyon on 04-29-2022 Basophil percentage 78 mg/dL 74-106 [facility] Basophil percentage 136 mmol/L 136-145 [facility] Basophil percentage 4.2 mmol/L 3.5-5.1 [facility] Basophil percentage 100 mmol/L 98-107 [facility] Basophils (Bld) [#/Vol] 7.1 10*3/uL 4.4-11.0 [facility] Basophils (Bld) [#/Vol] 3.5 10*3/uL 2.0-7.7 [facility] Basophils/100 WBC (Bld) 0.7 % 0-1 [facility] Basophils/100 WBC (Bld) 48.4 % 47-70 [facility] Basophils/100 WBC (Bld) 3.6 % 0-5 [facility] Basophil percentageon 2021 Chloride [Moles/Vol] 100 mmol/L 98-107 [facility] Work Phone: Eosinophils/100 WBC (Bld) 3.6 % 0-5 [facility] Work Phone: Glucose [Mass/Vol] 78 mg/dL 74-106 [facility] Work Phone: Neutrophils (Bld) [#/Vol] 3.5 10*3/uL 2.0-7.7 [facility] Work Phone: Neutrophils/100 WBC (Bld) 48.4 % 47-70 [facility] Work Phone: Potassium [Moles/Vol] 4.2 mmol/L 3.5-5.1 [facility] Work Phone: Comment on above: Slight Hemolysis, Re sult may be falsely increased. Sodium [Moles/Vol] 136 mmol/L 136-145 [facility] Work Phone: WBC (Bld) [#/Vol] 7.1 10*3/uL 4.4-11.0 [facility] Work Phone: Blood erythrocytes count (nu mber/volume)Ordered By: Zackary Lyon on 04-29-2022 RBC (Bld) [#/Vol] 3.75 10*6/uL 4.2-5.4 [facility] Blood hemoglobin measurement (mass/volume)Ordered By: Zackary Lyon on 04-29-2022 Hemoglobin (Bld) [Mass/Vol] 10.8 g/dL 12.0-15.0 [facility] Blood lymphocytes/100 leukoc ytesOrdered By: Zackary Lyon on 04-29-2022 Lymphocytes/100 WBC (Bld) 33.7 % 19-41 [facility] Blood monocytes/100 leukocyt esOrdered By: Zackary Lyon on 04-29-2022 Monocytes/100 WBC (Bld) 13.0 % 0-10 [facility] Blood platelet mean volumeOr dered By: Zackary Lyon on 04-29-2022 Platelet mean volume (Bld) [Entitic vol] 10.1 fL 6.2-12.0 [facility] Determination of erythrocyte mean corpuscular volume (MCV)Ordered By: Zackary Lyon on 04-29-2022 MCV (RBC) [Entitic vol] 95.5 fL 81-99 [facility] Hematocrit Auto (Bld) [Volum e fraction]Ordered By: Zackary Lyon on 04-29-2022 Hematocrit (Bld) [Volume fraction] 35.8 % 37-47 [facility] INR in Blood by Coagulation assayOrdered By: Zackary Lyon on 04-29-2022 INR Coag (Bld) [Relative time] 1.4 {INR} [facility] Laboratory - Chemistry and C hemistry - challengeon 04-29-2022 CO2 [Moles/Vol] 31.0 mmol/L 21.0-32.0 [facility] Work Phone: Urea nitrogen/Creatinine [Mass ratio] 27.9 mg/mg 10-20 [facility] Work Phone: Laboratory - Coagulationon 1 06-30-2021 PT Coag (PPP) [Time] 17.2 s 11.7-14.9 [facility] Work Phone: Laboratory - Hematology and Cell countson 04-29-2022 Erythrocyte distribution width (RBC) [Entitic vol] 48.3 fL 35.1-43.9 [facility] Work Phone: Erythrocyte distribution width (RBC) [Ratio] 13.7 % 11.6-14.6 [facility] Work Phone: Immature granulocytes/100 WBC (Bld) 0.600 % 0.0-0.9 [facility] Work Phone: Comment on above: IG% - Immature Granu locytes (promyelocytes, myelocytes and metamyelocytes) > 1% indicates that a LEFT SHIFT is Present. MCH (RBC) [Entitic mass] 28.8 pg 27.0-32.0 [facility] Work Phone: Nucleated RBC/100 WBC (Bld) [Ratio] 0 % 0-5 [facility] Work Phone: MCHC Auto (RBC) [Mass/Vol]Or dered By: Zackary Lyon on 04-29-2022 MCHC (RBC) [Mass/Vol] 30.2 g/dL 32-36 [facility] No Panel Informationon 04-29 Estimated GFR (MDRD) Amer 73 mL/min >60 [facility] Work Phone: Comment on above: GFR Calc Estimated GFR (MDRD) Non-Af Amer 61 mL/min >60 [facility] Work Phone: Comment on above: Non- GFR Calc No Panel InformationOrdered By: Zackary Lyon on 04-29-2022 28.8 pg 27.0-32.0 [facility] 13.7 % 11.6-14.6 [facility] 48.3 fl 35.1-43.9 [facility] 0.600 % 0.0-0.9 [facility] 0 % 0-5 [facility] 17.2 SECONDS 11.7-14.9 [facility] 61 mL/min >60 [facility] 73 mL/min >60 [facility] 27.9 RATIO 10-20 [facility] 31.0 mmol/L 21.0-32.0 [facility] Platelets bldOrdered By: James chelseanataly Lyon on 04-29-2022 Platelets (Bld) [#/Vol] 288 10*3/uL 150-450 [facility] Serum or plasma calcium manuel urement (mass/volume)Ordered By: Zackary Lyon on 04-29-2022 Calcium [Mass/Vol] 9.6 mg/dL 8.5-10.1 [facility] Serum or plasma creatinine m easurement (mass/volume)Ordered By: Zackary Lyon on 04-29-2022 Creatinine [Mass/Vol] 0.93 mg/dL 0.55-1.02 [facility] Comment on above: The validity of the calculated GFR & GFRAA in patients over 70 years has not been determined. Clinical correlation is essential. Serum or plasma urea nitroge n measurement (mass/volume)Ordered By: Zackary Lyon on 04-29-2022 Urea nitrogen [Mass/Vol] 26 mg/dL 7-18 [facility] Thin prep Papanicolaou smear with manual screeningOrdered By: Zackary Lyon on 04-29-2022 Thin prep Papanicolaou smear with manual screening 5 5-15 [facility] Absolute lymphocyte countOrd ered By: Zackary Lyon on 04-22-2022 Lymphocytes Auto (Unsp spec) [#/Vol] 1.78 10*3/uL 0.83-4.51 [facility] Basophil percentageOrdered B y: Zackary Lyon on 04-22-2022 Basophil percentage 104 mg/dL 74-106 [facility] Basophil percentage 134 mmol/L 136-145 [facility] Basophil percentage 4.6 mmol/L 3.5-5.1 [facility] Basophil percentage 100 mmol/L 98-107 [facility] Basophils (Bld) [#/Vol] 6.6 10*3/uL 4.4-11.0 [facility] Basophils (Bld) [#/Vol] 3.8 10*3/uL 2.0-7.7 [facility] Basophils/100 WBC (Bld) 0.8 % 0-1 [facility] Basophils/100 WBC (Bld) 57.9 % 47-70 [facility] Basophils/100 WBC (Bld) 3.2 % 0-5 [facility] Basophil percentageon 2021 Chloride [Moles/Vol] 100 mmol/L 98-107 [facility] Work Phone: Eosinophils/100 WBC (Bld) 3.2 % 0-5 [facility] Work Phone: [phone] Glucose [Mass/Vol] 104 mg/dL 74-106 [facility] Work Phone: Comment on above: Fasting Glucose resu lt from 100 to 125 mg/dL suggests IMPAIRED HOMEOSTASIS per A.D.A. criteria. Neutrophils (Bld) [#/Vol] 3.8 10*3/uL 2.0-7.7 [facility] Work Phone: [phone] Neutrophils/100 WBC (Bld) 57.9 % 47-70 [facility] Work Phone: [phone] Potassium [Moles/Vol] 4.6 mmol/L 3.5-5.1 [facility] Work Phone: [phone] Comment on above: Slight Hemolysis, Re sult may be falsely increased. Sodium [Moles/Vol] 134 mmol/L 136-145 [facility] Work Phone: [phone] WBC (Bld) [#/Vol] 6.6 10*3/uL 4.4-11.0 [facility] Work Phone: Blood erythrocytes count (nu mber/volume)Ordered By: Zackary Lyon on 04-22-2022 RBC (Bld) [#/Vol] 3.68 10*6/uL 4.2-5.4 [facility] Blood hemoglobin measurement (mass/volume)Ordered By: Zackary Lyon on 04-22-2022 Hemoglobin (Bld) [Mass/Vol] 12.0 g/dL 12.0-15.0 [facility] Blood lymphocytes/100 leukoc ytesOrdered By: Zackary Lyon on 04-22-2022 Lymphocytes/100 WBC (Bld) 27.1 % 19-41 [facility] Blood monocytes/100 leukocyt esOrdered By: Zackary Lyon on 04-22-2022 Monocytes/100 WBC (Bld) 9.9 % 0-10 [facility] Blood platelet mean volumeOr dered By: Zackary Lyon on 04-22-2022 Platelet mean volume (Bld) [Entitic vol] 10.1 fL 6.2-12.0 [facility] Determination of erythrocyte mean corpuscular volume (MCV)Ordered By: Zackary Lyon on 04-22-2022 MCV (RBC) [Entitic vol] 102.4 fL 81-99 [facility] Hematocrit Auto (Bld) [Volum e fraction]Ordered By: Zackary Lyon on 04-22-2022 Hematocrit (Bld) [Volume fraction] 37.7 % 37-47 [facility] INR in Blood by Coagulation assayOrdered By: Zackary Lyon on 04-22-2022 INR Coag (Bld) [Relative time] 1.3 {INR} [facility] Laboratory - Chemistry and C hemistry - challengeon 04-22-2022 CO2 [Moles/Vol] 28.0 mmol/L 21.0-32.0 [facility] Work Phone: Urea nitrogen/Creatinine [Mass ratio] 23.2 mg/mg 10-20 [facility] Work Phone: Laboratory - Coagulationon 1 2-12-2022 PT Coag (PPP) [Time] 15.6 s 11.7-14.9 [facility] Work Phone: Laboratory - Hematology and Cell countson 04-22-2022 Erythrocyte distribution width (RBC) [Entitic vol] 52.9 fL 35.1-43.9 [facility] Work Phone: Erythrocyte distribution width (RBC) [Ratio] 16.4 % 11.6-14.6 [facility] Work Phone: Immature granulocytes/100 WBC (Bld) 1.100 % 0.0-0.9 [facility] Work Phone: Comment on above: IG% - Immature Granu locytes (promyelocytes, myelocytes and metamyelocytes) > 1% indicates that a LEFT SHIFT is Present. MCH (RBC) [Entitic mass] 32.6 pg 27.0-32.0 [facility] Work Phone: Nucleated RBC/100 WBC (Bld) [Ratio] 0 % 0-5 [facility] Work Phone: MCHC Auto (RBC) [Mass/Vol]Or dered By: Zackary Lyon on 04-22-2022 MCHC (RBC) [Mass/Vol] 31.8 g/dL 32-36 [facility] Comment on above: Delta: 30.1 on 04/18 No Panel Informationon 04-22 Estimated GFR (MDRD) Amer 76 mL/min >60 [facility] Work Phone: Comment on above: GFR Calc Estimated GFR (MDRD) Non-Af Amer 63 mL/min >60 [facility] Work Phone: Comment on above: Non- GFR Calc No Panel InformationOrdered By: Zackary Lyon on 04-22-2022 32.6 pg 27.0-32.0 [facility] 16.4 % 11.6-14.6 [facility] 52.9 fl 35.1-43.9 [facility] 1.100 % 0.0-0.9 [facility] 0 % 0-5 [facility] 15.6 SECONDS 11.7-14.9 [facility] 63 mL/min >60 [facility] 76 mL/min >60 [facility] 23.2 RATIO 10-20 [facility] 28.0 mmol/L 21.0-32.0 [facility] Platelets bldOrdered By: James isabella Sonali on 04-22-2022 Platelets (Bld) [#/Vol] 270 10*3/uL 150-450 [facility] Serum or plasma calcium manuel urement (mass/volume)Ordered By: Zackary Lyon on 04-22-2022 Calcium [Mass/Vol] 9.6 mg/dL 8.5-10.1 [facility] Serum or plasma creatinine m easurement (mass/volume)Ordered By: Zackary Lyon on 04-22-2022 Creatinine [Mass/Vol] 0.90 mg/dL 0.55-1.02 [facility] Comment on above: The validity of the calculated GFR & GFRAA in patients over 70 years has not been determined. Clinical correlation is essential. Serum or plasma urea nitroge n measurement (mass/volume)Ordered By: Zackary Lyon on 04-22-2022 Urea nitrogen [Mass/Vol] 21 mg/dL 7-18 [facility] Thin prep Papanicolaou smear with manual screeningOrdered By: yariellowellnataly Lyon on 04-22-2022 Thin prep Papanicolaou smear with manual screening 6 5-15 [facility] Absolute lymphocyte countOrd ered By: Dr. Jimenez on 04-18-2022 Lymphocytes Auto (Unsp spec) [#/Vol] 1.62 10*3/uL 0.83-4.51 [facility] Basophil percentageOrdered B y: Dr. Jimenez on 04-18-2022 Basophil percentage 86 mg/dL 74-106 [facility] Basophil percentage 134 mmol/L 136-145 [facility] Basophil percentage 3.3 mmol/L 3.5-5.1 [facility] Basophil percentage 99 mmol/L 98-107 [facility] Basophils (Bld) [#/Vol] 7.4 10*3/uL 4.4-11.0 [facility] Basophils (Bld) [#/Vol] 4.6 10*3/uL 2.0-7.7 [facility] Basophils/100 WBC (Bld) 0.8 % 0-1 [facility] Basophils/100 WBC (Bld) 61.5 % 47-70 [facility] Basophils/100 WBC (Bld) 3.8 % 0-5 [facility] Basophil percentageon 2021 Chloride [Moles/Vol] 99 mmol/L 98-107 [facility] Work Phone: Eosinophils/100 WBC (Bld) 3.8 % 0-5 [facility] Work Phone: Glucose [Mass/Vol] 86 mg/dL 74-106 [facility] Work Phone: Neutrophils (Bld) [#/Vol] 4.6 10*3/uL 2.0-7.7 [facility] Work Phone: Neutrophils/100 WBC (Bld) 61.5 % 47-70 [facility] Work Phone: Potassium [Moles/Vol] 3.3 mmol/L 3.5-5.1 [facility] Work Phone: Sodium [Moles/Vol] 134 mmol/L 136-145 [facility] Work Phone: WBC (Bld) [#/Vol] 7.4 10*3/uL 4.4-11.0 [facility] Work Phone: Blood erythrocytes count (nu mber/volume)Ordered By: Dr. Jimenez on 04-18-2022 RBC (Bld) [#/Vol] 3.79 10*6/uL 4.2-5.4 [facility] Blood hemoglobin measurement (mass/volume)Ordered By: Dr. Jimenez on 04-18-2022 Hemoglobin (Bld) [Mass/Vol] 11.5 g/dL 12.0-15.0 [facility] Blood lymphocytes/100 leukoc ytesOrdered By: Dr. Jimenez on 04-18-2022 Lymphocytes/100 WBC (Bld) 21.8 % 19-41 [facility] Blood monocytes/100 leukocyt esOrdered By: Dr. Jimenez on 04-18-2022 Monocytes/100 WBC (Bld) 11.4 % 0-10 [facility] Blood platelet mean volumeOr dered By: Dr. Jimenez on 04-18-2022 Platelet mean volume (Bld) [Entitic vol] 9.2 fL 6.2-12.0 [facility] COVID-19 virus antigen assay Ordered By: Dr. Maza on 04-18-2022 SARS-CoV-2 (COVID-19) Ag IA.rapid Ql (Resp) [facility] Determination of erythrocyte mean corpuscular volume (MCV)Ordered By: Dr. Jimenez on 04-18-2022 MCV (RBC) [Entitic vol] 100.8 fL 81-99 [facility] Comment on above: Delta: 91.9 on 04/17-05 Hematocrit Auto (Bld) [Volum e fraction]Ordered By: Dr. Jimenez on 04-18-2022 Hematocrit (Bld) [Volume fraction] 38.2 % 37-47 [facility] Laboratory - Chemistry and C hemistry - challengeon 04-18-2022 CO2 [Moles/Vol] 28.0 mmol/L 21.0-32.0 [facility] Work Phone: Urea nitrogen/Creatinine [Mass ratio] 19.1 mg/mg 10-20 [facility] Work Phone: Laboratory - Hematology and Cell countson 04-18-2022 Erythrocyte distribution width (RBC) [Entitic vol] 50.6 fL 35.1-43.9 [facility] Work Phone: Erythrocyte distribution width (RBC) [Ratio] 13.8 % 11.6-14.6 [facility] Work Phone: Immature granulocytes/100 WBC (Bld) 0.700 % 0.0-0.9 [facility] Work Phone: Comment on above: IG% - Immature Granu locytes (promyelocytes, myelocytes and metamyelocytes) > 1% indicates that a LEFT SHIFT is Present. MCH (RBC) [Entitic mass] 30.3 pg 27.0-32.0 [facility] Work Phone: Nucleated RBC/100 WBC (Bld) [Ratio] 0 % 0-5 [facility] Work Phone: MCHC Auto (RBC) [Mass/Vol]Or dered By: Dr. Jimenez on 04-18-2022 MCHC (RBC) [Mass/Vol] 30.1 g/dL 32-36 [facility] No Panel Informationon 04-18 Estimated Creatinine Clearance Calc 30.86 ml/min [facility] Work Phone: Estimated GFR (MDRD) Amer 72 mL/min >60 [facility] Work Phone: Comment on above: GFR Calc Estimated GFR (MDRD) Non-Af Amer 60 mL/min >60 [facility] Work Phone: Comment on above: Non- GFR Calc No Panel InformationOrdered By: Dr. Jimenez on 04-18-2022 30.3 pg 27.0-32.0 [facility] 13.8 % 11.6-14.6 [facility] 50.6 fl 35.1-43.9 [facility] 0.700 % 0.0-0.9 [facility] 0 % 0-5 [facility] 60 mL/min >60 [facility] 72 mL/min >60 [facility] 30.86 ml/min [facility] 19.1 RATIO 10-20 [facility] 28.0 mmol/L 21.0-32.0 [facility] Platelets bldOrdered By: Dr. Jimenez on 04-18-2022 Platelets (Bld) [#/Vol] 361 10*3/uL 150-450 [facility] Serum or plasma calcium manuel urement (mass/volume)Ordered By: Dr. Jimenez on 04-18-2022 Calcium [Mass/Vol] 9.5 mg/dL 8.5-10.1 [facility] Serum or plasma creatinine m easurement (mass/volume)Ordered By: Dr. Jimenez on 04-18-2022 Creatinine [Mass/Vol] 0.94 mg/dL 0.55-1.02 [facility] Comment on above: The validity of the calculated GFR & GFRAA in patients over 70 years has not been determined. Clinical correlation is essential. Serum or plasma urea nitroge n measurement (mass/volume)Ordered By: Dr. Jimenez on 04-18-2022 Urea nitrogen [Mass/Vol] 18 mg/dL 7-18 [facility] Thin prep Papanicolaou smear with manual screeningOrdered By: Dr. Jimenez on 04-18-2022 Thin prep Papanicolaou smear with manual screening 7 5-15 [facility] Basophil percentageOrdered B y: Dr. Judd on 04-16-2022 Basophil percentage 6.7 g/dL 6.4-8.2 [facility] Basophil percentage 0.40 mg/dL 0.20-1.00 [facility] Basophil percentageon 2021 Bilirubin [Mass/Vol] 0.40 mg/dL 0.20-1.00 [facility] Work Phone: Comment on above: For patients on eltr ombopag therapy, use of Dimension Crawford TBIL is not recommended. Protein [Mass/Vol] 6.7 g/dL 6.4-8.2 [facility] Work Phone: Direct bilirubinOrdered By: Dr. Judd on 04-16-2022 Bilirubin.direct [Mass/Vol] 0.12 mg/dL 0.00-0.30 [facility] INR in Blood by Coagulation assayOrdered By: Dr. Maza on 04-16-2022 INR Coag (Bld) [Relative time] 1.3 {INR} [facility] Laboratory - Chemistry and C hemistry - challengeon 04-16-2022 ALP [Catalytic activity/Vol] 75 U/L 45-117 [facility] Work Phone: ALT [Catalytic activity/Vol] 14 U/L 13-56 [facility] Work Phone: Globulin (S) [Mass/Vol] 3.6 g/dL 2.2-4.2 [facility] [facility] Work Phone: Laboratory - Coagulationon 1 06-17-2021 aPTT Coag (Bld) [Time] 31.7 s 24.1-36.2 [facility] Work Phone: PT Coag (PPP) [Time] 15.5 s 11.7-14.9 [facility] Work Phone: No Panel InformationOrdered By: Dr. Maza on 04-16-2022 15.5 SECONDS 11.7-14.9 [facility] No Panel InformationOrdered By: Dr. Judd on 04-16-2022 31.7 Seconds 24.1-36.2 [facility] 3.6 g/dL 2.2-4.2 [facility] 75 U/L 45-117 [facility] 14 U/L 13-56 [facility] Serum or plasma albumin manuel urement (mass/volume)Ordered By: Dr. Judd on 04-16-2022 Albumin [Mass/Vol] 3.1 g/dL 3.2-5.0 [facility] Thin prep Papanicolaou smear with manual screeningOrdered By: Dr. Judd on 04-16-2022 Thin prep Papanicolaou smear with manual screening 16 U/L 15-37 [facility] INR in Blood by Coagulation assayon 04-11-2022 INR Coag (Bld) [Relative time] 3.4 {INR} [facility] Work Phone: Laboratory - Coagulationon 1 06-12-2021 PT Coag (PPP) [Time] 33.7 s 11.7-14.9 [facility] Work Phone: Absolute lymphocyte counton 04-10-2022 Lymphocytes Auto (Unsp spec) [#/Vol] 1.24 10*3/uL 0.83-4.51 [facility] Work Phone: Basophil percentageon 2021 Basophils/100 WBC (Bld) 0.4 % 0-1 [facility] Work Phone: Bilirubin [Mass/Vol] 0.40 mg/dL 0.20-1.00 [facility] Work Phone: [phone] Comment on above: For patients on eltr ombopag therapy, use of Dimension [place] TBIL is not recommended. Chloride [Moles/Vol] 99 mmol/L 98-107 [facility] Work Phone: [phone] Eosinophils/100 WBC (Bld) 0.5 % 0-5 [facility] Work Phone: [phone] Glucose [Mass/Vol] 120 mg/dL 74-106 [facility] Work Phone: [phone] Comment on above: Fasting Glucose resu lt from 100 to 125 mg/dL suggests IMPAIRED HOMEOSTASIS per A.D.A. criteria. Neutrophils (Bld) [#/Vol] 6.4 10*3/uL 2.0-7.7 [facility] Work Phone: Neutrophils/100 WBC (Bld) 77.0 % 47-70 [facility] Work Phone: [phone] Potassium [Moles/Vol] 4.1 mmol/L 3.5-5.1 [facility] Work Phone: [phone] Protein [Mass/Vol] 7.4 g/dL 6.4-8.2 [facility] Work Phone: [phone] Sodium [Moles/Vol] 138 mmol/L 136-145 [facility] Work Phone: [phone] WBC (Bld) [#/Vol] 8.4 10*3/uL 4.4-11.0 [facility] Work Phone: [phone] Basophil percentageOrdered B y: Dr. Snow on 04-10-2022 Basophil percentage 0-5 SEEN /hpf 0-5 [facility] Bilirubin Test strip Ql (U)O rdered By: Dr. Snow on 04-10-2022 Bilirubin Ql (U) Negative Negative [facility] Blood erythrocytes count (nu mber/volume)on 04-10-2022 RBC (Bld) [#/Vol] 4.09 10*6/uL 4.2-5.4 [facility] Work Phone: Blood hemoglobin measurement (mass/volume)on 04-10-2022 Hemoglobin (Bld) [Mass/Vol] 11.9 g/dL 12.0-15.0 [facility] Work Phone: Blood lymphocytes/100 leukoc yteson 04-10-2022 Lymphocytes/100 WBC (Bld) 14.9 % 19-41 [facility] Work Phone: Blood monocytes/100 leukocyt eson 04-10-2022 Monocytes/100 WBC (Bld) 6.5 % 0-10 [facility] Work Phone: Blood platelet mean volumeon 04-10-2022 Platelet mean volume (Bld) [Entitic vol] 9.4 fL 6.2-12.0 [facility] Work Phone: Determination of erythrocyte mean corpuscular volume (MCV)on 04-10-2022 MCV (RBC) [Entitic vol] 91.7 fL 81-99 [facility] Work Phone: Hematocrit Auto (Bld) [Volum e fraction]on 04-10-2022 Hematocrit (Bld) [Volume fraction] 37.5 % 37-47 [facility] Work Phone: INR in Blood by Coagulation assayon 04-10-2022 INR Coag (Bld) [Relative time] 3.5 {INR} [facility] Work Phone: Ketones Test strip Ql (U)Ord ered By: Dr. Snow on 04-10-2022 Ketones Ql (U) 5 mg/dl Negative [facility] Laboratory - Chemistry and C hemistry - challengeon 04-10-2022 ALP [Catalytic activity/Vol] 87 U/L 45-117 [facility] Work Phone: ALT [Catalytic activity/Vol] 17 U/L 13-56 [facility] Work Phone: CO2 [Moles/Vol] 31.0 mmol/L 21.0-32.0 [facility] Work Phone: Globulin (S) [Mass/Vol] 4.0 g/dL 2.2-4.2 [facility] Work Phone: Urea nitrogen/Creatinine [Mass ratio] 22.8 mg/mg 10-20 [facility] Work Phone: Laboratory - Coagulationon 1 06-10-2021 PT Coag (PPP) [Time] 35.0 s 11.7-14.9 [facility] Work Phone: Laboratory - Hematology and Cell countson 04-10-2022 Erythrocyte distribution width (RBC) [Entitic vol] 46.0 fL 35.1-43.9 [facility] Work Phone: Erythrocyte distribution width (RBC) [Ratio] 13.5 % 11.6-14.6 [facility] Work Phone: Immature granulocytes/100 WBC (Bld) 0.700 % 0.0-0.9 [facility] Work Phone: Comment on above: IG% - Immature Granu locytes (promyelocytes, myelocytes and metamyelocytes) > 1% indicates that a LEFT SHIFT is Present. MCH (RBC) [Entitic mass] 29.1 pg 27.0-32.0 [facility] Work Phone: Nucleated RBC/100 WBC (Bld) [Ratio] 0 % 0-5 [facility] Work Phone: MCHC Auto (RBC) [Mass/Vol]on 04-10-2022 MCHC (RBC) [Mass/Vol] 31.7 g/dL 32-36 [facility] Work Phone: Mucus LM Ql (Urine sed)Order ed By: Dr. Snow on 04-10-2022 Mucus Ql (Urine sed) 0 SEEN /hpf [facility] Nitrite Test strip Ql (U)Ord ered By: Dr. Snow on 04-10-2022 Nitrite Ql (U) Negative Negative [facility] No Panel Informationon 04-10 Estimated Creatinine Clearance Calc 29.01 ml/min [facility] Work Phone: Estimated GFR (MDRD) Amer 95 mL/min >60 [facility] Work Phone: Comment on above: GFR Calc Estimated GFR (MDRD) Non-Af Amer 78 mL/min >60 [facility] Work Phone: Comment on above: Non- GFR Calc Platelets bldon 04-10-2022 Platelets (Bld) [#/Vol] 341 10*3/uL 150-450 [facility] Work Phone: Protein Test strip Ql (U)Ord ered By: Dr. Snow on 04-10-2022 Protein Ql (U) 30 mg/dl Negative [facility] Serum or plasma albumin manuel urement (mass/volume)on 04-10-2022 Albumin [Mass/Vol] 3.4 g/dL 3.2-5.0 [facility] Work Phone: Serum or plasma albumin/glob ulin mass ratioOrdered By: Dr. Snow on 04-10-2022 Albumin/Globulin [Mass ratio] 0.8 {ratio} 0.9-2.4 [facility] Serum or plasma calcium manuel urement (mass/volume)on 04-10-2022 Calcium [Mass/Vol] 10.1 mg/dL 8.5-10.1 [facility] Work Phone: Serum or plasma creatinine m easurement (mass/volume)on 04-10-2022 Creatinine [Mass/Vol] 0.75 mg/dL 0.55-1.02 [facility] Work Phone: Comment on above: The validity of the calculated GFR & GFRAA in patients over 70 years has not been determined. Clinical correlation is essential. Serum or plasma urea nitroge n measurement (mass/volume)on 04-10-2022 Urea nitrogen [Mass/Vol] 17 mg/dL 7-18 [facility] Work Phone: Squamous epithelial cells de tection in urine sediment by light microscopyOrdered By: Dr. Snow on 04-10-2022 Epithelial cells.squamous LM Ql (Urine sed) 0-5 SEEN /hpf 5-10 [facility] Thin prep Papanicolaou smear with manual screeningon 04-10-2022 Thin prep Papanicolaou smear with manual screening 18 U/L 15-37 [facility] Work Phone: Thin prep Papanicolaou smear with manual screening 8 5-15 [facility] Work Phone: Urine blood detectionOrdered By: Dr. Snow on 04-10-2022 RBC Ql (U) 10 /ul Negative [facility] RBC Ql (U) 0 SEEN /hpf 0-5 [facility] Urine clarityOrdered By: Dr. Snow on 04-10-2022 Clarity (U) Clear Clear [facility] Urine color determinationOrd ered By: Dr. Snow on 04-10-2022 Color (U) Yellow Yellow [facility] Urine glucose detectionOrder ed By: Dr. Snow on 04-10-2022 Glucose Ql (U) Normal mg/dl Normal [facility] Urine leukocyte esterase det ection by dipstickOrdered By: Dr. Snow on 04-10-2022 Leukocyte esterase Test strip Ql (U) 25 /ul Negative [facility] Urine pHOrdered By: Dr. Bhavik schneider on 04-10-2022 pH (U) 8.0 [pH] 5.0 - 8.0 [facility] Urine sediment bacteria coun t by microscopy (number/high power field)Ordered By: Dr. Snow on 04-10-2022 Bacteria LM.HPF (Urine sed) [#/Area] RARE /hpf None Seen [facility] Urine specific gravity measu rementOrdered By: Dr. Snow on 04-10-2022 Specific gravity (U) [Rel density] 1.010 1.002-1.030 [facility] Urobilinogen Auto test strip Ql (U)Ordered By: Dr. Snow on 04-10-2022 Urobilinogen Ql (U) Normal mg/dl Normal [facility] Absolute lymphocyte countOrd ered By: Dr. Marshall on 03-17-2022 Lymphocytes Auto (Unsp spec) [#/Vol] 2.46 10*3/uL 0.83-4.51 [facility] Basophil percentageOrdered B y: Dr. Marshall on 03-17-2022 Basophil percentage 89 mg/dL 74-106 [facility] Basophil percentage 138 mmol/L 136-145 [facility] Basophil percentage 4.2 mmol/L 3.5-5.1 [facility] Basophil percentage 105 mmol/L 98-107 [facility] Basophils (Bld) [#/Vol] 8.7 10*3/uL 4.4-11.0 [facility] Basophils (Bld) [#/Vol] 5.3 10*3/uL 2.0-7.7 [facility] Basophils/100 WBC (Bld) 0.7 % 0-1 [facility] Basophils/100 WBC (Bld) 61.1 % 47-70 [facility] Basophils/100 WBC (Bld) 1.7 % 0-5 [facility] Basophil percentageon 2021 Chloride [Moles/Vol] 105 mmol/L 98-107 [facility] Work Phone: Eosinophils/100 WBC (Bld) 1.7 % 0-5 [facility] Work Phone: Glucose [Mass/Vol] 89 mg/dL 74-106 [facility] Work Phone: Neutrophils (Bld) [#/Vol] 5.3 10*3/uL 2.0-7.7 [facility] Work Phone: Neutrophils/100 WBC (Bld) 61.1 % 47-70 [facility] Work Phone: Potassium [Moles/Vol] 4.2 mmol/L 3.5-5.1 [facility] Work Phone: Sodium [Moles/Vol] 138 mmol/L 136-145 [facility] Work Phone: WBC (Bld) [#/Vol] 8.7 10*3/uL 4.4-11.0 [facility] Work Phone: Blood erythrocytes count (nu mber/volume)Ordered By: Dr. Marshall on 03-17-2022 RBC (Bld) [#/Vol] 4.23 10*6/uL 4.2-5.4 [facility] Blood hemoglobin measurement (mass/volume)Ordered By: Dr. Marshall on 03-17-2022 Hemoglobin (Bld) [Mass/Vol] 12.6 g/dL 12.0-15.0 [facility] Blood lymphocytes/100 leukoc ytesOrdered By: Dr. Marshall on 03-17-2022 Lymphocytes/100 WBC (Bld) 28.2 % 19-41 [facility] Blood monocytes/100 leukocyt esOrdered By: Dr. Marshall on 03-17-2022 Monocytes/100 WBC (Bld) 7.6 % 0-10 [facility] Blood platelet mean volumeOr dered By: Dr. Marshall on 03-17-2022 Platelet mean volume (Bld) [Entitic vol] 9.7 fL 6.2-12.0 [facility] Determination of erythrocyte mean corpuscular volume (MCV)Ordered By: Dr. Marshall on 03-17-2022 MCV (RBC) [Entitic vol] 92.9 fL 81-99 [facility] Hematocrit Auto (Bld) [Volum e fraction]Ordered By: Dr. Marshall on 03-17-2022 Hematocrit (Bld) [Volume fraction] 39.3 % 37-47 [facility] INR in Blood by Coagulation assayOrdered By: Dr. Marshall on 03-17-2022 INR Coag (Bld) [Relative time] 2.5 {INR} [facility] Laboratory - Chemistry and C hemistry - challengeon 03-17-2022 CO2 [Moles/Vol] 27.0 mmol/L 21.0-32.0 [facility] Work Phone: Urea nitrogen/Creatinine [Mass ratio] 22.0 mg/mg 10-20 [facility] Work Phone: Laboratory - Coagulationon 1 05-17-2021 PT Coag (PPP) [Time] 26.7 s 11.7-14.9 [facility] Work Phone: Laboratory - Hematology and Cell countson 03-17-2022 Erythrocyte distribution width (RBC) [Entitic vol] 47.2 fL 35.1-43.9 [facility] Work Phone: Erythrocyte distribution width (RBC) [Ratio] 13.8 % 11.6-14.6 [facility] Work Phone: Immature granulocytes/100 WBC (Bld) 0.700 % 0.0-0.9 [facility] Work Phone: Comment on above: IG% - Immature Granu locytes (promyelocytes, myelocytes and metamyelocytes) > 1% indicates that a LEFT SHIFT is Present. MCH (RBC) [Entitic mass] 29.8 pg 27.0-32.0 [facility] Work Phone: Nucleated RBC/100 WBC (Bld) [Ratio] 0 % 0-5 [facility] Work Phone: MCHC Auto (RBC) [Mass/Vol]Or dered By: Dr. Marshall on 03-17-2022 MCHC (RBC) [Mass/Vol] 32.1 g/dL 32-36 [facility] No Panel Informationon 03-17 Estimated Creatinine Clearance Calc 31.04 ml/min [facility] Work Phone: Estimated GFR (MDRD) Amer 91 mL/min >60 [facility] Work Phone: Comment on above: GFR Calc Estimated GFR (MDRD) Non-Af Amer 75 mL/min >60 [facility] Work Phone: Comment on above: Non- GFR Calc No Panel InformationOrdered By: Dr. Marshall on 03-17-2022 29.8 pg 27.0-32.0 [facility] 13.8 % 11.6-14.6 [facility] 47.2 fl 35.1-43.9 [facility] 0.700 % 0.0-0.9 [facility] 0 % 0-5 [facility] 26.7 SECONDS 11.7-14.9 [facility] 75 mL/min >60 [facility] 91 mL/min >60 [facility] 31.04 ml/min [facility] 22.0 RATIO 10-20 [facility] 27.0 mmol/L 21.0-32.0 [facility] Platelets bldOrdered By: Dr. Marshall on 03-17-2022 Platelets (Bld) [#/Vol] 335 10*3/uL 150-450 [facility] Serum or plasma calcium manuel urement (mass/volume)Ordered By: Dr. Marshall on 03-17-2022 Calcium [Mass/Vol] 9.7 mg/dL 8.5-10.1 [facility] Serum or plasma creatinine m easurement (mass/volume)Ordered By: Dr. Marshall on 03-17-2022 Creatinine [Mass/Vol] 0.77 mg/dL 0.55-1.02 [facility] Comment on above: The validity of the calculated GFR & GFRAA in patients over 70 years has not been determined. Clinical correlation is essential. Serum or plasma urea nitroge n measurement (mass/volume)Ordered By: Dr. Marshall on 03-17-2022 Urea nitrogen [Mass/Vol] 17 mg/dL 7-18 [facility] Thin prep Papanicolaou smear with manual screeningOrdered By: Dr. Marshall on 03-17-2022 Thin prep Papanicolaou smear with manual screening 6 5-15 [facility] COVID-19 virus antigen assay Ordered By: Dr. Marshall on 02-18-2022 SARS-CoV-2 (COVID-19) Ag IA.rapid Ql (Resp) [facility] INR in Blood by Coagulation assayon 02-18-2022 INR Coag (Bld) [Relative time] 1.2 {INR} [facility] Work Phone: Laboratory - Coagulationon 1 PT Coag (PPP) [Time] 14.5 s 11.7-14.9 [facility] Work Phone: Absolute lymphocyte counton 02-17-2022 Lymphocytes Auto (Unsp spec) [#/Vol] 1.74 10*3/uL 0.83-4.51 [facility] Work Phone: Basophil percentageon 2021 Basophils/100 WBC (Bld) 0.8 % 0-1 [facility] Work Phone: Chloride [Moles/Vol] 96 mmol/L 98-107 [facility] Work [facility]: Eosinophils/100 WBC (Bld) 5.2 % 0-5 [facility] Work Phone: Glucose [Mass/Vol] 104 mg/dL 74-106 [facility] Work Phone: Comment on above: Fasting Glucose resu lt from 100 to 125 mg/dL suggests IMPAIRED HOMEOSTASIS per A.D.A. criteria. Neutrophils (Bld) [#/Vol] 5.1 10*3/uL 2.0-7.7 [facility] Work Phone: [phone] Neutrophils/100 WBC (Bld) 60.6 % 47-70 [facility] Work Phone: [phone] Potassium [Moles/Vol] 4.4 mmol/L 3.5-5.1 [facility] Work Phone: Sodium [Moles/Vol] 133 mmol/L 136-145 [facility] Work Phone: [phone] WBC (Bld) [#/Vol] 8.4 10*3/uL 4.4-11.0 [facility] Work Phone: Blood erythrocytes count (nu mber/volume)on 02-17-2022 RBC (Bld) [#/Vol] 3.75 10*6/uL 4.2-5.4 [facility] Work Phone: Blood hemoglobin measurement (mass/volume)on 02-17-2022 Hemoglobin (Bld) [Mass/Vol] 11.1 g/dL 12.0-15.0 [facility] Work Phone: Blood lymphocytes/100 leukoc yteson 02-17-2022 Lymphocytes/100 WBC (Bld) 20.7 % 19-41 [facility] Work Phone: Blood monocytes/100 leukocyt eson 02-17-2022 Monocytes/100 WBC (Bld) 11.0 % 0-10 [facility] Work Phone: Blood platelet mean volumeon 02-17-2022 Platelet mean volume (Bld) [Entitic vol] 9.3 fL 6.2-12.0 [facility] Work Phone: Determination of erythrocyte mean corpuscular volume (MCV)on 02-17-2022 MCV (RBC) [Entitic vol] 93.9 fL 81-99 [facility] Work Phone: Hematocrit Auto (Bld) [Volum e fraction]on 02-17-2022 Hematocrit (Bld) [Volume fraction] 35.2 % 37-47 [facility] Work Phone: Laboratory - Chemistry and C hemistry - challengeon 02-17-2022 CO2 [Moles/Vol] 31.0 mmol/L 21.0-32.0 [facility] Work Phone: Urea nitrogen/Creatinine [Mass ratio] 15.0 mg/mg 10-20 [facility] Work Phone: Laboratory - Hematology and Cell countson 02-17-2022 Erythrocyte distribution width (RBC) [Entitic vol] 46.3 fL 35.1-43.9 [facility] Work Phone: Erythrocyte distribution width (RBC) [Ratio] 13.5 % 11.6-14.6 [facility] Work Phone: Immature granulocytes/100 WBC (Bld) 1.700 % 0.0-0.9 [facility] Work Phone: Comment on above: IG% - Immature Granu locytes (promyelocytes, myelocytes and metamyelocytes) > 1% indicates that a LEFT SHIFT is Present. MCH (RBC) [Entitic mass] 29.6 pg 27.0-32.0 [facility] Work Phone: Nucleated RBC/100 WBC (Bld) [Ratio] 0 % 0-5 [facility] Work Phone: MCHC Auto (RBC) [Mass/Vol]on 02-17-2022 MCHC (RBC) [Mass/Vol] 31.5 g/dL 32-36 [facility] Work Phone: No Panel Informationon 02-17 Estimated Creatinine Clearance Calc 38.80 ml/min [facility] Work Phone: Estimated GFR (MDRD) Amer 88 mL/min >60 [facility] Work Phone: Comment on above: GFR Calc Estimated GFR (MDRD) Non-Af Amer 72 mL/min >60 [facility] Work Phone: Comment on above: Non- GFR Calc Platelets bldon 02-17-2022 Platelets (Bld) [#/Vol] 322 10*3/uL 150-450 [facility] Work Phone: Serum or plasma calcium manuel urement (mass/volume)on 02-17-2022 Calcium [Mass/Vol] 8.9 mg/dL 8.5-10.1 [facility] Work Phone: Serum or plasma creatinine m easurement (mass/volume)on 02-17-2022 Creatinine [Mass/Vol] 0.80 mg/dL 0.55-1.02 [facility] Work Phone: Comment on above: The validity of the calculated GFR & GFRAA in patients over 70 years has not been determined. Clinical correlation is essential. Serum or plasma urea nitroge n measurement (mass/volume)on 02-17-2022 Urea nitrogen [Mass/Vol] 12 mg/dL 7-18 [facility] Work Phone: Thin prep Papanicolaou smear with manual screeningon 02-17-2022 Thin prep Papanicolaou smear with manual screening 6 5-15 [facility] Work Phone: Bacteria identified Cx Nom ( U)Ordered By: Dr. Marshall on 02-15-2022 Culture, urine Aerococcus viridans. [facility] Culture, urine Escherichia coli [facility] INR in Blood by Coagulation assayOrdered By: Dr. Marshall on 02-14-2022 INR Coag (Bld) [Relative time] 1.1 {INR} [facility] Laboratory - Coagulationon 1 PT Coag (PPP) [Time] 13.6 s 11.7-14.9 [facility] Work Phone: No Panel InformationOrdered By: Dr. Marshall on 02-14-2022 13.6 SECONDS 11.7-14.9 [facility] Basophil percentageOrdered B y: Dr. Marshall on 02-13-2022 Basophil percentage 5-10 SEEN /hpf 0-5 [facility] Bilirubin Test strip Ql (U)O rdered By: Dr. Marshall on 02-13-2022 Bilirubin Ql (U) Negative Negative [facility] Ketones Test strip Ql (U)Ord ered By: Dr. Marshall on 02-13-2022 Ketones Ql (U) Negative Negative [facility] Mucus LM Ql (Urine sed)Order ed By: Dr. Marshall on 02-13-2022 Mucus Ql (Urine sed) 0 SEEN /hpf [facility] Nitrite Test strip Ql (U)Ord ered By: Dr. Marshall on 02-13-2022 Nitrite Ql (U) Negative Negative [facility] Protein Test strip Ql (U)Ord ered By: Dr. Marshall on 02-13-2022 Protein Ql (U) Negative Negative [facility] Squamous epithelial cells de tection in urine sediment by light microscopyOrdered By: Dr. Marshall on 02-13-2022 Epithelial cells.squamous LM Ql (Urine sed) 0 SEEN /hpf 5-10 [facility] Urine blood detectionOrdered By: Dr. Marshall on 02-13-2022 RBC Ql (U) 10 /ul Negative [facility] RBC Ql (U) 0 SEEN /hpf 0-5 [facility] Urine clarityOrdered By: Dr. Marshall on 02-13-2022 Clarity (U) Clear Clear [facility] Urine color determinationOrd ered By: Dr. Marshall on 02-13-2022 Color (U) Yellow Yellow [facility] Urine glucose detectionOrder ed By: Dr. Marshall on 02-13-2022 Glucose Ql (U) Normal mg/dl Normal [facility] Urine leukocyte esterase det ection by dipstickOrdered By: Dr. Marshall on 02-13-2022 Leukocyte esterase Test strip Ql (U) 25 /ul Negative [facility] Urine pHOrdered By: Dr. Marshall on 02-13-2022 pH (U) 7.0 [pH] 5.0 - 8.0 [facility] Urine sediment bacteria coun t by microscopy (number/high power field)Ordered By: Dr. Marshall on 02-13-2022 Bacteria LM.HPF (Urine sed) [#/Area] 2 /[HPF] None Seen [facility] Urine specific gravity measu rementOrdered By: Dr. Marshall on 02-13-2022 Specific gravity (U) [Rel density] 1.010 1.002-1.030 [facility] Urobilinogen Auto test strip Ql (U)Ordered By: Dr. Marshall on 02-13-2022 Urobilinogen Ql (U) Normal mg/dl Normal [facility] Absolute lymphocyte countOrd ered By: Dr. Marshall on 02-12-2022 Lymphocytes Auto (Unsp spec) [#/Vol] 2.02 10*3/uL 0.83-4.51 [facility] Basophil percentageOrdered B y: Dr. Marshall on 02-12-2022 Basophil percentage 91 mg/dL 74-106 [facility] Basophil percentage 133 mmol/L 136-145 [facility] Basophil percentage 4.7 mmol/L 3.5-5.1 [facility] Basophil percentage 96 mmol/L 98-107 [facility] Basophils (Bld) [#/Vol] 8.0 10*3/uL 4.4-11.0 [facility] Basophils (Bld) [#/Vol] 4.3 10*3/uL 2.0-7.7 [facility] Basophils/100 WBC (Bld) 1.0 % 0-1 [facility] Basophils/100 WBC (Bld) 54.0 % 47-70 [facility] Basophils/100 WBC (Bld) 6.8 % 0-5 [facility] Basophil percentageon 2021 Chloride [Moles/Vol] 96 mmol/L 98-107 [facility] Work Phone: [phone] Eosinophils/100 WBC (Bld) 6.8 % 0-5 [facility] Work Phone: [phone] Glucose [Mass/Vol] 91 mg/dL 74-106 [facility] Work Phone: [phone] Neutrophils (Bld) [#/Vol] 4.3 10*3/uL 2.0-7.7 [facility] Work Phone: [phone] Neutrophils/100 WBC (Bld) 54.0 % 47-70 [facility] Work Phone: [phone] Potassium [Moles/Vol] 4.7 mmol/L 3.5-5.1 [facility] Work Phone: [phone] Sodium [Moles/Vol] 133 mmol/L 136-145 [facility] Work Phone: WBC (Bld) [#/Vol] 8.0 10*3/uL 4.4-11.0 [facility] Work Phone: Blood erythrocytes count (nu mber/volume)Ordered By: Dr. Marshall on 02-12-2022 RBC (Bld) [#/Vol] 4.07 10*6/uL 4.2-5.4 [facility] Blood hemoglobin measurement (mass/volume)Ordered By: Dr. Marshall on 02-12-2022 Hemoglobin (Bld) [Mass/Vol] 12.0 g/dL 12.0-15.0 [facility] Blood lymphocytes/100 leukoc ytesOrdered By: Dr. Marshall on 02-12-2022 Lymphocytes/100 WBC (Bld) 25.1 % 19-41 [facility] Blood monocytes/100 leukocyt esOrdered By: Dr. Marshall on 02-12-2022 Monocytes/100 WBC (Bld) 10.2 % 0-10 [facility] Blood platelet mean volumeOr dered By: Dr. Marshall on 02-12-2022 Platelet mean volume (Bld) [Entitic vol] 9.2 fL 6.2-12.0 [facility] Determination of erythrocyte mean corpuscular volume (MCV)Ordered By: Dr. Marshall on 02-12-2022 MCV (RBC) [Entitic vol] 93.9 fL 81-99 [facility] Hematocrit Auto (Bld) [Volum e fraction]Ordered By: Dr. Marshall on 02-12-2022 Hematocrit (Bld) [Volume fraction] 38.2 % 37-47 [facility] Laboratory - Chemistry and C hemistry - challengeon 02-12-2022 CO2 [Moles/Vol] 33.0 mmol/L 21.0-32.0 [facility] Work Phone: Urea nitrogen/Creatinine [Mass ratio] 29.8 mg/mg 10-20 [facility] Work Phone: Laboratory - Hematology and Cell countson 02-12-2022 Erythrocyte distribution width (RBC) [Entitic vol] 47.6 fL 35.1-43.9 [facility] Work Phone: Erythrocyte distribution width (RBC) [Ratio] 13.7 % 11.6-14.6 [facility] Work Phone: Immature granulocytes/100 WBC (Bld) 2.900 % 0.0-0.9 [facility] Work Phone: Comment on above: IG% - Immature Granu locytes (promyelocytes, myelocytes and metamyelocytes) > 1% indicates that a LEFT SHIFT is Present. MCH (RBC) [Entitic mass] 29.5 pg 27.0-32.0 [facility] Work Phone: Nucleated RBC/100 WBC (Bld) [Ratio] 0 % 0-5 [facility] Work Phone: MCHC Auto (RBC) [Mass/Vol]Or dered By: Dr. Marshall on 02-12-2022 MCHC (RBC) [Mass/Vol] 31.4 g/dL 32-36 [facility] No Panel Informationon 02-12 Estimated Creatinine Clearance Calc 36.95 ml/min [facility] Work Phone: Estimated GFR (MDRD) Amer 83 mL/min >60 [facility] Work Phone: Comment on above: GFR Calc Estimated GFR (MDRD) Non-Af Amer 68 mL/min >60 [facility] Work Phone: Comment on above: Non- GFR Calc No Panel InformationOrdered By: Dr. Marshall on 02-12-2022 29.5 pg 27.0-32.0 [facility] 13.7 % 11.6-14.6 [facility] 47.6 fl 35.1-43.9 [facility] 2.900 % 0.0-0.9 [facility] 0 % 0-5 [facility] 68 mL/min >60 [facility] 83 mL/min >60 [facility] 36.95 ml/min [facility] 29.8 RATIO 10-20 [facility] 33.0 mmol/L 21.0-32.0 [facility] Platelets bldOrdered By: Dr. Marshall on 02-12-2022 Platelets (Bld) [#/Vol] 382 10*3/uL 150-450 [facility] Serum or plasma calcium manuel urement (mass/volume)Ordered By: Dr. Marshall on 02-12-2022 Calcium [Mass/Vol] 9.5 mg/dL 8.5-10.1 [facility] Serum or plasma creatinine m easurement (mass/volume)Ordered By: Dr. Marshall on 02-12-2022 Creatinine [Mass/Vol] 0.84 mg/dL 0.55-1.02 [facility] Comment on above: The validity of the calculated GFR & GFRAA in patients over 70 years has not been determined. Clinical correlation is essential. Serum or plasma urea nitroge n measurement (mass/volume)Ordered By: Dr. Marshall on 02-12-2022 Urea nitrogen [Mass/Vol] 25 mg/dL 7-18 [facility] Thin prep Papanicolaou smear with manual screeningOrdered By: Dr. Marshall on 02-12-2022 Thin prep Papanicolaou smear with manual screening 4 5-15 [facility] Absolute lymphocyte countOrd ered By: Dr. Evans on 02-11-2022 Lymphocytes Auto (Unsp spec) [#/Vol] 1.85 10*3/uL 0.83-4.51 [facility] Basophil percentageOrdered B y: Dr. Evans on 02-11-2022 Basophil percentage 136 mg/dL 74-106 [facility] Basophil percentage 136 mmol/L 136-145 [facility] Basophil percentage 4.0 mmol/L 3.5-5.1 [facility] Basophil percentage 96 mmol/L 98-107 [facility] Basophils (Bld) [#/Vol] 8.9 10*3/uL 4.4-11.0 [facility] Basophils (Bld) [#/Vol] 5.7 10*3/uL 2.0-7.7 [facility] Basophils/100 WBC (Bld) 0.8 % 0-1 [facility] Basophils/100 WBC (Bld) 64.1 % 47-70 [facility] Basophils/100 WBC (Bld) 5.4 % 0-5 [facility] Basophil percentageon 2021 Chloride [Moles/Vol] 96 mmol/L 98-107 [facility] Work Phone: [phone] Eosinophils/100 WBC (Bld) 5.4 % 0-5 [facility] Work Phone: [phone] Glucose [Mass/Vol] 136 mg/dL 74-106 [facility] Work Phone: Comment on above: Fasting Glucose resu lt greater than or equal to 126 mg/dL suggests DIABETES MELLITUS per A.D.A. criteria. Neutrophils (Bld) [#/Vol] 5.7 10*3/uL 2.0-7.7 [facility] Work Phone: Neutrophils/100 WBC (Bld) 64.1 % 47-70 [facility] Work Phone: [phone] Potassium [Moles/Vol] 4.0 mmol/L 3.5-5.1 [facility] Work Phone: [phone] Sodium [Moles/Vol] 136 mmol/L 136-145 [facility] Work Phone: WBC (Bld) [#/Vol] 8.9 10*3/uL 4.4-11.0 [facility] Work Phone: Blood erythrocytes count (nu mber/volume)Ordered By: Dr. Evans on 02-11-2022 RBC (Bld) [#/Vol] 4.48 10*6/uL 4.2-5.4 [facility] Blood hemoglobin measurement (mass/volume)Ordered By: Dr. Evans on 02-11-2022 Hemoglobin (Bld) [Mass/Vol] 13.2 g/dL 12.0-15.0 [facility] Blood lymphocytes/100 leukoc ytesOrdered By: Dr. Evans on 02-11-2022 Lymphocytes/100 WBC (Bld) 20.9 % 19-41 [facility] Blood monocytes/100 leukocyt esOrdered By: Dr. Evans on 02-11-2022 Monocytes/100 WBC (Bld) 6.8 % 0-10 [facility] Blood platelet mean volumeOr dered By: Dr. Evans on 02-11-2022 Platelet mean volume (Bld) [Entitic vol] 9.4 fL 6.2-12.0 [facility] COVID-19 virus antigen assay Ordered By: Dr. Evans on 02-11-2022 SARS-CoV-2 (COVID-19) Ag IA.rapid Ql (Resp) [facility] Determination of erythrocyte mean corpuscular volume (MCV)Ordered By: Dr. Evans on 02-11-2022 MCV (RBC) [Entitic vol] 95.3 fL 81-99 [facility] Hematocrit Auto (Bld) [Volum e fraction]Ordered By: Dr. Evans on 02-11-2022 Hematocrit (Bld) [Volume fraction] 42.7 % 37-47 [facility] INR in Blood by Coagulation assayOrdered By: Dr. Evans on 02-11-2022 INR Coag (Bld) [Relative time] 1.2 {INR} [facility] Laboratory - Chemistry and C hemistry - challengeon 02-11-2022 CO2 [Moles/Vol] 32.0 mmol/L 21.0-32.0 [facility] Work Phone: Magnesium [Mass/Vol] 2.3 mg/dL 1.6-2.6 [facility] Work Phone: Urea nitrogen/Creatinine [Mass ratio] 28.0 mg/mg 10-20 [facility] Work Phone: Laboratory - Coagulationon 1 PT Coag (PPP) [Time] 14.6 s 11.7-14.9 [facility] Work Phone: Laboratory - Hematology and Cell countson 02-11-2022 Erythrocyte distribution width (RBC) [Entitic vol] 48.5 fL 35.1-43.9 [facility] Work Phone: Erythrocyte distribution width (RBC) [Ratio] 13.7 % 11.6-14.6 [facility] Work Phone: Immature granulocytes/100 WBC (Bld) 2.000 % 0.0-0.9 [facility] Work Phone: Comment on above: IG% - Immature Granu locytes (promyelocytes, myelocytes and metamyelocytes) > 1% indicates that a LEFT SHIFT is Present. MCH (RBC) [Entitic mass] 29.5 pg 27.0-32.0 [facility] Work Phone: Nucleated RBC/100 WBC (Bld) [Ratio] 0 % 0-5 [facility] Work Phone: MCHC Auto (RBC) [Mass/Vol]Or dered By: Dr. Evans on 02-11-2022 MCHC (RBC) [Mass/Vol] 30.9 g/dL 32-36 [facility] No Panel Informationon 02-11 Estimated Creatinine Clearance Calc 33.37 ml/min [facility] Work Phone: Estimated GFR (MDRD) Amer 74 mL/min >60 [facility] Work Phone: Comment on above: GFR Calc Estimated GFR (MDRD) Non-Af Amer 61 mL/min >60 [facility] Work Phone: Comment on above: Non- GFR Calc No Panel InformationOrdered By: Dr. Evans on 02-11-2022 29.5 pg 27.0-32.0 [facility] 13.7 % 11.6-14.6 [facility] 48.5 fl 35.1-43.9 [facility] 2.000 % 0.0-0.9 [facility] 0 % 0-5 [facility] 14.6 SECONDS 11.7-14.9 [facility] 61 mL/min >60 [facility] 74 mL/min >60 [facility] 33.37 ml/min [facility] 28.0 RATIO 10-20 [facility] 2.3 mg/dL 1.6-2.6 [facility] 32.0 mmol/L 21.0-32.0 [facility] Platelets bldOrdered By: Dr. Evans on 02-11-2022 Platelets (Bld) [#/Vol] 418 10*3/uL 150-450 [facility] Serum or plasma calcium manuel urement (mass/volume)Ordered By: Dr. Evans on 02-11-2022 Calcium [Mass/Vol] 9.9 mg/dL 8.5-10.1 [facility] Serum or plasma creatinine m easurement (mass/volume)Ordered By: Dr. Evans on 02-11-2022 Creatinine [Mass/Vol] 0.93 mg/dL 0.55-1.02 [facility] Comment on above: The validity of the calculated GFR & GFRAA in patients over 70 years has not been determined. Clinical correlation is essential. Serum or plasma urea nitroge n measurement (mass/volume)Ordered By: Dr. Evans on 02-11-2022 Urea nitrogen [Mass/Vol] 26 mg/dL 7-18 [facility] Thin prep Papanicolaou smear with manual screeningOrdered By: Dr. Evans on 02-11-2022 Thin prep Papanicolaou smear with manual screening 8 5-15 [facility] Absolute lymphocyte counton 02-09-2022 Lymphocytes Auto (Unsp spec) [#/Vol] 1.65 10*3/uL 0.83-4.51 [facility] Work Phone: Basophil percentageOrdered B y: Dr. Hendrickson on 02-09-2022 Basophil percentage 0 SEEN /hpf 0-5 [facility] Basophil percentage 7.1 g/dL 6.4-8.2 [facility] Basophil percentage 0.30 mg/dL 0.20-1.00 [facility] Basophil percentageon 2021 Basophils/100 WBC (Bld) 0.6 % 0-1 [facility] Work Phone: Bilirubin [Mass/Vol] 0.30 mg/dL 0.20-1.00 [facility] Work Phone: Comment on above: For patients on eltr ombopag therapy, use of Dimension Crawford TBIL is not recommended. Chloride [Moles/Vol] 97 mmol/L 98-107 [facility] Work Phone: Eosinophils/100 WBC (Bld) 3.1 % 0-5 [facility] Work Phone: Glucose [Mass/Vol] 111 mg/dL 74-106 [facility] Work Phone: Comment on above: Fasting Glucose resu lt from 100 to 125 mg/dL suggests IMPAIRED HOMEOSTASIS per A.D.A. criteria. Neutrophils (Bld) [#/Vol] 5.8 10*3/uL 2.0-7.7 [facility] Work Phone: Neutrophils/100 WBC (Bld) 63.6 % 47-70 [facility] Work Phone: Potassium [Moles/Vol] 4.8 mmol/L 3.5-5.1 [facility] Work Phone: Protein [Mass/Vol] 7.1 g/dL 6.4-8.2 [facility] Work Phone: Sodium [Moles/Vol] 136 mmol/L 136-145 [facility] Work Phone: WBC (Bld) [#/Vol] 9.1 10*3/uL 4.4-11.0 [facility] Work Phone: Bilirubin Test strip Ql (U)O rdered By: Dr. Hendrickson on 02-09-2022 Bilirubin Ql (U) Negative Negative [facility] Blood erythrocytes count (nu mber/volume)on 02-09-2022 RBC (Bld) [#/Vol] 4.14 10*6/uL 4.2-5.4 [facility] Work Phone: Blood hemoglobin measurement (mass/volume)on 02-09-2022 Hemoglobin (Bld) [Mass/Vol] 12.3 g/dL 12.0-15.0 [facility] Work Phone: Blood lymphocytes/100 leukoc yteson 02-09-2022 Lymphocytes/100 WBC (Bld) 18.2 % 19-41 [facility] Work Phone: Blood monocytes/100 leukocyt eson 02-09-2022 Monocytes/100 WBC (Bld) 12.6 % 0-10 [facility] Work Phone: Blood platelet mean volumeon 02-09-2022 Platelet mean volume (Bld) [Entitic vol] 9.2 fL 6.2-12.0 [facility] Work Phone: Determination of erythrocyte mean corpuscular volume (MCV)on 02-09-2022 MCV (RBC) [Entitic vol] 95.7 fL 81-99 [facility] Work Phone: Hematocrit Auto (Bld) [Volum e fraction]on 02-09-2022 Hematocrit (Bld) [Volume fraction] 39.6 % 37-47 [facility] Work Phone: Ketones Test strip Ql (U)Ord ered By: Dr. Hendrickson on 02-09-2022 Ketones Ql (U) Negative Negative [facility] Laboratory - Chemistry and C hemistry - challengeon 02-09-2022 ALP [Catalytic activity/Vol] 62 U/L 45-117 [facility] Work Phone: ALT [Catalytic activity/Vol] 18 U/L 13-56 [facility] Work Phone: CO2 [Moles/Vol] 33.0 mmol/L 21.0-32.0 [facility] Work Phone: Globulin (S) [Mass/Vol] 4.0 g/dL 2.2-4.2 [facility] Work Phone: Urea nitrogen/Creatinine [Mass ratio] 28.6 mg/mg 10-20 [facility] Work Phone: Laboratory - Hematology and Cell countson 02-09-2022 Erythrocyte distribution width (RBC) [Entitic vol] 49.4 fL 35.1-43.9 [facility] Work Phone: Erythrocyte distribution width (RBC) [Ratio] 14.1 % 11.6-14.6 [facility] Work Phone: Immature granulocytes/100 WBC (Bld) 1.900 % 0.0-0.9 [facility] Work Phone: Comment on above: IG% - Immature Granu locytes (promyelocytes, myelocytes and metamyelocytes) > 1% indicates that a LEFT SHIFT is Present. MCH (RBC) [Entitic mass] 29.7 pg 27.0-32.0 [facility] Work Phone: Nucleated RBC/100 WBC (Bld) [Ratio] 0 % 0-5 [facility] Work Phone: MCHC Auto (RBC) [Mass/Vol]on 02-09-2022 MCHC (RBC) [Mass/Vol] 31.1 g/dL 32-36 [facility] Work Phone: Mucus LM Ql (Urine sed)Order ed By: Dr. Hendrickson on 02-09-2022 Mucus Ql (Urine sed) 0 SEEN /hpf [facility] Nitrite Test strip Ql (U)Ord ered By: Dr. Hendrickson on 02-09-2022 Nitrite Ql (U) Negative Negative [facility] No Panel Informationon 02-09 Estimated Creatinine Clearance Calc 29.56 ml/min [facility] Work Phone: Estimated GFR (MDRD) Amer 64 mL/min >60 [facility] Work Phone: Comment on above: GFR Calc Estimated GFR (MDRD) Non-Af Amer 53 mL/min >60 [facility] Work Phone: Comment on above: Non- GFR Calc No Panel InformationOrdered By: Dr. Hendrickson on 02-09-2022 4.0 g/dL 2.2-4.2 [facility] 62 U/L 45-117 [facility] 18 U/L 13-56 [facility] Platelets bldon 02-09-2022 Platelets (Bld) [#/Vol] 385 10*3/uL 150-450 [facility] Work Phone: Protein Test strip Ql (U)Ord ered By: Dr. Hendrickson on 02-09-2022 Protein Ql (U) Negative Negative [facility] Serum or plasma albumin manuel urement (mass/volume)Ordered By: Dr. Hendrickson on 02-09-2022 Albumin [Mass/Vol] 3.1 g/dL 3.2-5.0 [facility] Serum or plasma albumin/glob ulin mass ratioOrdered By: Dr. Hendrickson on 02-09-2022 Albumin/Globulin [Mass ratio] 0.8 {ratio} 0.9-2.4 [facility] Serum or plasma calcium manuel urement (mass/volume)on 02-09-2022 Calcium [Mass/Vol] 9.1 mg/dL 8.5-10.1 [facility] Work Phone: Serum or plasma creatinine m easurement (mass/volume)on 02-09-2022 Creatinine [Mass/Vol] 1.05 mg/dL 0.55-1.02 [facility] Work Phone: Comment on above: The validity of the calculated GFR & GFRAA in patients over 70 years has not been determined. Clinical correlation is essential. Serum or plasma urea nitroge n measurement (mass/volume)on 02-09-2022 Urea nitrogen [Mass/Vol] 30 mg/dL 7-18 [facility] Work Phone: Squamous epithelial cells de tection in urine sediment by light microscopyOrdered By: Dr. Hendrickson on 02-09-2022 Epithelial cells.squamous LM Ql (Urine sed) 0-5 SEEN /hpf 5-10 [facility] Thin prep Papanicolaou smear with manual screeningOrdered By: Dr. Hendrickson on 02-09-2022 Thin prep Papanicolaou smear with manual screening 16 U/L 15-37 [facility] Thin prep Papanicolaou smear with manual screeningon 02-09-2022 Thin prep Papanicolaou smear with manual screening 6 5-15 [facility] Work Phone: Urine blood detectionOrdered By: Dr. Hendrickson on 02-09-2022 RBC Ql (U) Negative Negative [facility] RBC Ql (U) 0 SEEN /hpf 0-5 [facility] Urine clarityOrdered By: Dr. Hendrickson on 02-09-2022 Clarity (U) Clear Clear [facility] Urine color determinationOrd ered By: Dr. Hendrickson on 02-09-2022 Color (U) Straw Yellow [facility] Urine glucose detectionOrder ed By: Dr. Hendrickson on 02-09-2022 Glucose Ql (U) Normal mg/dl Normal [facility] Urine leukocyte esterase det ection by dipstickOrdered By: Dr. Hendrickson on 02-09-2022 Leukocyte esterase Test strip Ql (U) Negative Negative [facility] Urine pHOrdered By: Dr. Heavenly freeman on 02-09-2022 pH (U) 7.0 [pH] 5.0 - 8.0 [facility] Urine sediment bacteria coun t by microscopy (number/high power field)Ordered By: Dr. Hendrickson on 02-09-2022 Bacteria LM.HPF (Urine sed) [#/Area] RARE /hpf None Seen [facility] Urine specific gravity measu rementOrdered By: Dr. Hendrickson on 02-09-2022 Specific gravity (U) [Rel density] 1.005 1.002-1.030 [facility] Urobilinogen Auto test strip Ql (U)Ordered By: Dr. Hendrickson on 02-09-2022 Urobilinogen Ql (U) Normal mg/dl Normal [facility] Serum or plasma cortisol fran surement (mass/volume)on 12-20-2021 Cortisol [Mass/Vol] 6.90 ug/dL 3.44-22.45 [facility] Work Phone: Comment on above: Adult (AM) 5.27 - 22 .45 ug/dL Adult (PM) 3.44 - 16.76 ug/dLPlease note revised CORTISOL reference range effective 2019. Absolute lymphocyte counton 12-18-2021 Lymphocytes Auto (Unsp spec) [#/Vol] 2.24 10*3/uL 0.83-4.51 [facility] Work Phone: Basophil percentageon 2021 Basophils/100 WBC (Bld) 0.7 % 0-1 [facility] Work Phone: Bilirubin [Mass/Vol] 0.40 mg/dL 0.20-1.00 [facility] Work Phone: Comment on above: For patients on eltr ombopag therapy, use of Dimension Crawford TBIL is not recommended. Chloride [Moles/Vol] 102 mmol/L 98-107 [facility] Work Phone: Eosinophils/100 WBC (Bld) 1.7 % 0-5 [facility] Work Phone: Glucose [Mass/Vol] 104 mg/dL 74-106 [facility] Work Phone: Comment on above: Fasting Glucose resu lt from 100 to 125 mg/dL suggests IMPAIRED HOMEOSTASIS per A.D.A. criteria. Neutrophils (Bld) [#/Vol] 6.7 10*3/uL 2.0-7.7 [facility] Work Phone: Neutrophils/100 WBC (Bld) 66.9 % 47-70 [facility] Work Phone: Potassium [Moles/Vol] 4.4 mmol/L 3.5-5.1 [facility] Work Phone: Protein [Mass/Vol] 7.6 g/dL 6.4-8.2 [facility] Work Phone: Sodium [Moles/Vol] 137 mmol/L 136-145 [facility] Work Phone: WBC (Bld) [#/Vol] 10.1 10*3/uL 4.4-11.0 [facility]: Blood erythrocytes count (nu mber/volume)on 12-18-2021 RBC (Bld) [#/Vol] 4.04 10*6/uL 4.2-5.4 [facility] Work [facility]: Blood hemoglobin measurement (mass/volume)on 12-18-2021 Hemoglobin (Bld) [Mass/Vol] 12.1 g/dL 12.0-15.0 [facility] Work Phone: Blood lymphocytes/100 leukoc yteson 12-18-2021 Lymphocytes/100 WBC (Bld) 22.3 % 19-41 [facility] Work Phone: Blood monocytes/100 leukocyt eson 12-18-2021 Monocytes/100 WBC (Bld) 8.0 % 0-10 [facility] Work Phone: Blood platelet mean volumeon 12-18-2021 Platelet mean volume (Bld) [Entitic vol] 9.7 fL 6.2-12.0 [facility] Work Phone: Determination of erythrocyte mean corpuscular volume (MCV)on 12-18-2021 MCV (RBC) [Entitic vol] 91.3 fL 81-99 [facility] Work Phone: Erythrocyte sedimentation ra pieter 12-18-2021 ESR (Bld) [Velocity] 38 mm[facility]h [facility]: Hematocrit Auto (Bld) [Volum e fraction]on 12-18-2021 Hematocrit (Bld) [Volume fraction] 36.9 % 37-47 [facility] Work Phone: Iron measurement (mass/mass) on 12-18-2021 Iron (Unsp spec) [Mass/Mass] 97 ug/dL 50-170 [facility] Work Phone: [phone] Laboratory - Chemistry and C hemistry - challengeon 12-18-2021 ALP [Catalytic activity/Vol] 56 U/L 45-117 [facility] Work Phone: ALT [Catalytic activity/Vol] 17 U/L 13-56 [facility] Work Phone: [phone] CO2 [Moles/Vol] 30.0 mmol/L 21.0-32.0 [facility] Work Phone: [phone] Cobalamin (Vitamin B12) [Mass/Vol] 374 pg/mL 211-911 [facility] Work Phone: [phone] Globulin (S) [Mass/Vol] 4.2 g/dL 2.2-4.2 [facility] Work Phone: [phone] Urea nitrogen/Creatinine [Mass ratio] 25.0 mg/mg 10-20 [facility] Work Phone: Laboratory - Hematology and Cell countson 12-18-2021 Erythrocyte distribution width (RBC) [Entitic vol] 46.5 fL 35.1-43.9 [facility] Work Phone: [phone] Erythrocyte distribution width (RBC) [Ratio] 13.6 % 11.6-14.6 [facility] Work Phone: [phone] Immature granulocytes/100 WBC (Bld) 0.400 % 0.0-0.9 [facility] Work Phone: [phone] Comment on above: IG% - Immature Granu locytes (promyelocytes, myelocytes and metamyelocytes) > 1% indicates that a LEFT SHIFT is Present. MCH (RBC) [Entitic mass] 30.0 pg 27.0-32.0 [facility] Work Phone: [phone] Nucleated RBC/100 WBC (Bld) [Ratio] 0 % 0-5 [facility] Work Phone: MCHC Auto (RBC) [Mass/Vol]on 12-18-2021 MCHC (RBC) [Mass/Vol] 32.8 g/dL 32-36 [facility] Work Phone: No Panel Informationon 12-18 Estimated GFR (MDRD) Amer 57 mL/min >60 [facility] Work Phone: Comment on above: GFR Calc Estimated GFR (MDRD) Non-Af Amer 47 mL/min >60 [facility] Work Phone: Comment on above: Non- GFR Calc Thyroid Stimulating Hormone (TSH) 0.98 uIU/mL 0.358-3.74 [facility] Work Phone: Vitamin D 25-Hydroxy 76.0 ng/mL [facility] Work Phone: Comment on above: Vitamin D 25(OH) Sta tus Range Deficiency <20 ng/mL (50nmol/L) Insufficiency 20 - 30 ng/mL (50 - 75 nmol/L) Sufficiency 30 - 100 ng/mL (75 - 250 nmol/L) Toxicity >100 ng/mL (>250 nmol/L) Platelets bldon 12-18-2021 Platelets (Bld) [#/Vol] 333 10*3/uL 150-450 [facility] Work Phone: Serum or plasma albumin manuel urement (mass/volume)on 12-18-2021 Albumin [Mass/Vol] 3.4 g/dL 3.2-5.0 [facility] Work Phone: Serum or plasma albumin/glob ulin mass ratioon 12-18-2021 Albumin/Globulin [Mass ratio] 0.8 {ratio} 0.9-2.4 [facility] Work Phone: Serum or plasma calcium manuel urement (mass/volume)on 12-18-2021 Calcium [Mass/Vol] 9.5 mg/dL 8.5-10.1 [facility] Work Phone: Serum or plasma cortisol fran surement (mass/volume)on 12-18-2021 Cortisol [Mass/Vol] 2.80 ug/dL 3.44-22.45 [facility] Work Phone: Comment on above: Adult (AM) 5.27 - 22 .45 ug/dL Adult (PM) 3.44 - 16.76 ug/dLPlease note revised CORTISOL reference range effective 2019. Serum or plasma creatinine m easurement (mass/volume)on 12-18-2021 Creatinine [Mass/Vol] 1.16 mg/dL 0.55-1.02 [facility] Work Phone: Comment on above: The validity of the calculated GFR & GFRAA in patients over 70 years has not been determined. Clinical correlation is essential. Serum or plasma ferritin fran surement (mass/volume)on 12-18-2021 Ferritin [Mass/Vol] 56 ng/mL [facility] Work Phone: Serum or plasma urea nitroge n measurement (mass/volume)on 12-18-2021 Urea nitrogen [Mass/Vol] 29 mg/dL 7-18 [facility] Work Phone: Thin prep Papanicolaou smear with manual screeningon 12-18-2021 Thin prep Papanicolaou smear with manual screening 19 U/L 15-37 [facility] Work Phone: Thin prep Papanicolaou smear with manual screening 5 5-15 [facility] Work Phone: Serum or plasma ferritin fran surement (mass/volume)on 09-27-2021 Ferritin [Mass/Vol] 39 ng/mL [facility] Work Phone: Absolute lymphocyte counton 07-27-2021 Lymphocytes Auto (Unsp spec) [#/Vol] 1.59 10*3/uL 0.83-4.51 [facility] Work Phone: Basophil percentageon 2021 Basophils/100 WBC (Bld) 0.6 % 0-1 [facility] Work Phone: Eosinophils/100 WBC (Bld) 3.6 % 0-5 [facility] Work Phone: [phone] Neutrophils (Bld) [#/Vol] 3.9 10*3/uL 2.0-7.7 [facility] Work Phone: Neutrophils/100 WBC (Bld) 60.7 % 47-70 [facility] Work Phone: [phone] WBC (Bld) [#/Vol] 6.4 10*3/uL 4.4-11.0 [facility] Work Phone: Blood erythrocytes count (nu mber/volume)on 07-27-2021 RBC (Bld) [#/Vol] 3.84 10*6/uL 4.2-5.4 [facility]: Blood hemoglobin measurement (mass/volume)on 07-27-2021 Hemoglobin (Bld) [Mass/Vol] 11.7 g/dL 12.0-15.0 [facility] Work Phone: Blood lymphocytes/100 leukoc yteson 07-27-2021 Lymphocytes/100 WBC (Bld) 24.8 % 19-41 [facility] Work Phone: Blood monocytes/100 leukocyt eson 07-27-2021 Monocytes/100 WBC (Bld) 9.7 % 0-10 [facility] Work Phone: Blood platelet mean volumeon 07-27-2021 Platelet mean volume (Bld) [Entitic vol] 10.4 fL 6.2-12.0 [facility] Work Phone: Determination of erythrocyte mean corpuscular volume (MCV)on 07-27-2021 MCV (RBC) [Entitic vol] 92.7 fL 81-99 [facility] Work Phone: Hematocrit Auto (Bld) [Volum e fraction]on 07-27-2021 Hematocrit (Bld) [Volume fraction] 35.6 % 37-47 [facility] Work Phone: Laboratory - Hematology and Cell countson 07-27-2021 Erythrocyte distribution width (RBC) [Entitic vol] 46.9 fL 35.1-43.9 [facility] Work Phone: Erythrocyte distribution width (RBC) [Ratio] 13.8 % 11.6-14.6 [facility] Work Phone: Immature granulocytes/100 WBC (Bld) 0.600 % 0.0-0.9 [facility] Work Phone: Comment on above: IG% - Immature Granu locytes (promyelocytes, myelocytes and metamyelocytes) > 1% indicates that a LEFT SHIFT is Present. MCH (RBC) [Entitic mass] 30.5 pg 27.0-32.0 [facility] Work Phone: Nucleated RBC/100 WBC (Bld) [Ratio] 0 % 0-5 [facility] Work Phone: MCHC Auto (RBC) [Mass/Vol]on 07-27-2021 MCHC (RBC) [Mass/Vol] 32.9 g/dL 32-36 [facility] Work Phone: Comment on above: Delta: 30.9 on 07/2505 No Panel Informationon 07-27 Ionized Calcium 4.8 mg/dL 4.5-5.6 [facility] Work Phone: Comment on above: Performed at: [address] [id number] Director: Arjun Pisano PhD, Phone: [phone] Parathyroid Hormone (Intact) 109.8 pg/mL 18.4-80.1 [facility] Work Phone: Vitamin D 25-Hydroxy 69.9 ng/mL [facility] Work Phone: Comment on above: Vitamin D 25(OH) Sta tus Range Deficiency <20 ng/mL (50nmol/L) Insufficiency 20 - 30 ng/mL (50 - 75 nmol/L) Sufficiency 30 - 100 ng/mL (75 - 250 nmol/L) Toxicity >100 ng/mL (>250 nmol/L) Platelets bldon 07-27-2021 Platelets (Bld) [#/Vol] 280 10*3/uL 150-450 [facility] Work Phone: Serum or plasma C reactive p rotein measurement (mass/volume)on 07-27-2021 CRP [Mass/Vol] 36.30 mg/L 0.0-3.0 [facility] Work Phone: Comment on above: C-Reactive Protein ( CRP) provides useful information for thediagnosis, therapy and monitoring of inflammatory processesand associated diseases. For the evaluation of Relative Riskfor Cardiovascular Disease, a High Sensitivity CRP (HSCRP)should be ordered. Absolute lymphocyte counton 07-25-2021 Lymphocytes Auto (Unsp spec) [#/Vol] 1.76 10*3/uL 0.83-4.51 [facility] Work Phone: Basophil percentageon 2021 Basophils/100 WBC (Bld) 0.5 % 0-1 [facility] Work Phone: Chloride [Moles/Vol] 106 mmol/L 98-107 [facility] Work Phone: Eosinophils/100 WBC (Bld) 2.9 % 0-5 [facility] Work Phone: [phone] Glucose [Mass/Vol] 92 mg/dL 74-106 [facility] Work Phone: Neutrophils (Bld) [#/Vol] 3.3 10*3/uL 2.0-7.7 [facility] Work Phone: Neutrophils/100 WBC (Bld) 56.0 % 47-70 [facility] Work Phone: Potassium [Moles/Vol] 3.9 mmol/L 3.5-5.1 [facility] Work Phone: Sodium [Moles/Vol] 139 mmol/L 136-145 [facility] Work Phone: WBC (Bld) [#/Vol] 5.9 10*3/uL 4.4-11.0 [facility] Work Phone: Blood erythrocytes count (nu mber/volume)on 07-25-2021 RBC (Bld) [#/Vol] 3.30 10*6/uL 4.2-5.4 [facility]: Blood hemoglobin measurement (mass/volume)on 07-25-2021 Hemoglobin (Bld) [Mass/Vol] 9.5 g/dL 12.0-15.0 [facility] Work Phone: Blood lymphocytes/100 leukoc yteson 07-25-2021 Lymphocytes/100 WBC (Bld) 29.9 % 19-41 [facility] Work Phone: Blood monocytes/100 leukocyt eson 07-25-2021 Monocytes/100 WBC (Bld) 10.5 % 0-10 [facility] Work Phone: Blood platelet mean volumeon 07-25-2021 Platelet mean volume (Bld) [Entitic vol] 9.7 fL 6.2-12.0 [facility] Work Phone: Determination of erythrocyte mean corpuscular volume (MCV)on 07-25-2021 MCV (RBC) [Entitic vol] 93.0 fL 81-99 [facility] Work Phone: Erythrocyte sedimentation ra pieter 07-25-2021 ESR (Bld) [Velocity] 12 mm[facility]h [facility]: Hematocrit Auto (Bld) [Volum e fraction]on 07-25-2021 Hematocrit (Bld) [Volume fraction] 30.7 % 37-47 [facility] Work Phone: INR in Blood by Coagulation assayon 07-25-2021 INR Coag (Bld) [Relative time] 4.1 {INR} [facility] Work Phone: Comment on above: CRITICAL VALUE VERIF IED. CALLED TO David HERNANDEZ RN [phone].RESULTS READ BACK BY SAME. Laboratory - Chemistry and C hemistry - challengeon 07-25-2021 CO2 [Moles/Vol] 27.0 mmol/L 21.0-32.0 [facility] Work Phone: Urea nitrogen/Creatinine [Mass ratio] 23.7 mg/mg 10-20 [facility] Work Phone: Laboratory - Coagulationon 0 07-25-2021 PT Coag (PPP) [Time] 39.3 s 11.7-14.9 [facility] Work Phone: Laboratory - Hematology and Cell countson 07-25-2021 Erythrocyte distribution width (RBC) [Entitic vol] 47.7 fL 35.1-43.9 [facility] Work Phone: Erythrocyte distribution width (RBC) [Ratio] 14.1 % 11.6-14.6 [facility] Work Phone: Immature granulocytes/100 WBC (Bld) 0.200 % 0.0-0.9 [facility] Work Phone: Comment on above: IG% - Immature Granu locytes (promyelocytes, myelocytes and metamyelocytes) > 1% indicates that a LEFT SHIFT is Present. MCH (RBC) [Entitic mass] 28.8 pg 27.0-32.0 [facility] Work Phone: Nucleated RBC/100 WBC (Bld) [Ratio] 0 % 0-5 [facility] Work Phone: MCHC Auto (RBC) [Mass/Vol]on 07-25-2021 MCHC (RBC) [Mass/Vol] 30.9 g/dL 32-36 [facility] Work Phone: No Panel Informationon 07-25 Estimated Creatinine Clearance Calc 32.00 ml/min [facility] Work Phone: Estimated GFR (MDRD) Amer 70 mL/min >60 [facility] Work Phone: Comment on above: GFR Calc Estimated GFR (MDRD) Non-Af Amer 58 mL/min >60 [facility] Work Phone: Comment on above: Non- GFR Calc Platelets bldon 07-25-2021 Platelets (Bld) [#/Vol] 213 10*3/uL 150-450 [facility] Work Phone: Serum or plasma C reactive p rotein measurement (mass/volume)on 07-25-2021 CRP [Mass/Vol] 67.00 mg/L 0.0-3.0 [facility] Work Phone: Comment on above: C-Reactive Protein ( CRP) provides useful information for thediagnosis, therapy and monitoring of inflammatory processesand associated diseases. For the evaluation of Relative Riskfor Cardiovascular Disease, a High Sensitivity CRP (HSCRP)should be ordered. Serum or plasma calcium manuel urement (mass/volume)on 07-25-2021 Calcium [Mass/Vol] 7.6 mg/dL 8.5-10.1 [facility] Work Phone: Serum or plasma creatinine m easurement (mass/volume)on 07-25-2021 Creatinine [Mass/Vol] 0.97 mg/dL 0.55-1.02 [facility] Work Phone: Comment on above: The validity of the calculated GFR & GFRAA in patients over 70 years has not been determined. Clinical correlation is essential. Serum or plasma urea nitroge n measurement (mass/volume)on 07-25-2021 Urea nitrogen [Mass/Vol] 23 mg/dL 7-18 [facility] Work Phone: Thin prep Papanicolaou smear with manual screeningon 07-25-2021 Thin prep Papanicolaou smear with manual screening 6 5-15 [facility] Work Phone: Activated partial thrombopla stin time (aPTT) in platelet poor plasma by coagulation aon 07-24-2021 aPTT Coag (PPP) [Time] 53.1 s 24.1-36.2 [facility] Work Phone: Basophil percentageon 2021 Bilirubin [Mass/Vol] 0.40 mg/dL 0.20-1.00 [facility] Work Phone: Comment on above: For patients on eltr ombopag therapy, use of Dimension Crawford TBIL is not recommended. Lactate [Moles/Vol] 0.7 mmol/L 0.4-2.0 [facility] Work Phone: Protein [Mass/Vol] 7.4 g/dL 6.4-8.2 [facility] Work Phone: Direct bilirubinon 2 Bilirubin.direct [Mass/Vol] 0.05 mg/dL 0.00-0.30 [facility] Work Phone: Hemoglobin.gastrointestinal Ql ([place] fld)on 07-24-2021 Gastric Occult Blood Positive [facility] Work Phone: Laboratory - Chemistry and C hemistry - challengeon 07-24-2021 ALP [Catalytic activity/Vol] 59 U/L 45-117 [facility] Work Phone: ALT [Catalytic activity/Vol] 21 U/L 13-56 [facility] Work Phone: Globulin (S) [Mass/Vol] 4.0 g/dL 2.2-4.2 [facility] Work Phone: Lipase [Catalytic activity/Vol] 105 U/L 73-393 [facility] Work Phone: Serum or plasma albumin manuel urement (mass/volume)on 07-24-2021 Albumin [Mass/Vol] 3.4 g/dL 3.2-5.0 [facility] Work Phone: Thin prep Papanicolaou smear with manual screeningon 07-24-2021 Thin prep Papanicolaou smear with manual screening 31 U/L 15-37 [facility] Work Phone: Absolute lymphocyte counton 06-19-2021 Lymphocytes Auto (Unsp spec) [#/Vol] 1.69 10*3/uL 0.83-4.51 [facility] Work Phone: Basophil percentageon 2021 Basophils/100 WBC (Bld) 1.1 % 0-1 [facility] Work Phone: Bilirubin [Mass/Vol] 0.40 mg/dL 0.20-1.00 [facility] Work Phone: Comment on above: For patients on eltr ombopag therapy, use of Dimension Crawford TBIL is not recommended. Chloride [Moles/Vol] 99 mmol/L 98-107 [facility] Work Phone: Eosinophils/100 WBC (Bld) 2.2 % 0-5 [facility] Work Phone: Glucose [Mass/Vol] 93 mg/dL 74-106 [facility] Work Phone: Neutrophils (Bld) [#/Vol] 3.1 10*3/uL 2.0-7.7 [facility] Work Phone: Neutrophils/100 WBC (Bld) 55.2 % 47-70 [facility] Work Phone: Potassium [Moles/Vol] 4.0 mmol/L 3.5-5.1 [facility] Work Phone: Protein [Mass/Vol] 8.1 g/dL 6.4-8.2 [facility] Work Phone: Sodium [Moles/Vol] 137 mmol/L 136-145 [facility] Work Phone: WBC (Bld) [#/Vol] 5.5 10*3/uL 4.4-11.0 [facility] Work Phone: Blood erythrocytes count (nu mber/volume)on 06-19-2021 RBC (Bld) [#/Vol] 4.15 10*6/uL 4.2-5.4 [facility] Work Phone: Blood hemoglobin measurement (mass/volume)on 06-19-2021 Hemoglobin (Bld) [Mass/Vol] 11.8 g/dL 12.0-15.0 [facility] Work Phone: Blood lymphocytes/100 leukoc yteson 06-19-2021 Lymphocytes/100 WBC (Bld) 30.6 % 19-41 [facility] Work Phone: Blood monocytes/100 leukocyt eson 06-19-2021 Monocytes/100 WBC (Bld) 10.5 % 0-10 [facility] Work Phone: Blood platelet mean volumeon 06-19-2021 Platelet mean volume (Bld) [Entitic vol] 10.0 fL 6.2-12.0 [facility] Work Phone: Determination of erythrocyte mean corpuscular volume (MCV)on 06-19-2021 MCV (RBC) [Entitic vol] 91.3 fL 81-99 [facility] Work Phone: Erythrocyte sedimentation ra pieter 06-19-2021 ESR (Bld) [Velocity] 47 mm/h 0-30 [facility] Work Phone: Hematocrit Auto (Bld) [Volum e fraction]on 06-19-2021 Hematocrit (Bld) [Volume fraction] 37.9 % 37-47 [facility] Work Phone: Laboratory - Chemistry and C hemistry - challengeon 06-19-2021 ALP [Catalytic activity/Vol] 59 U/L 45-117 [facility] Work Phone: ALT [Catalytic activity/Vol] 23 U/L 13-56 [facility] Work Phone: CO2 [Moles/Vol] 29.0 mmol/L 21.0-32.0 [facility] Work Phone: Globulin (S) [Mass/Vol] 4.5 g/dL 2.2-4.2 [facility] Work Phone: Urea nitrogen/Creatinine [Mass ratio] 29.7 mg/mg 10-20 [facility] Work Phone: Laboratory - Hematology and Cell countson 06-19-2021 Erythrocyte distribution width (RBC) [Entitic vol] 45.2 fL 35.1-43.9 [facility] Work Phone: Erythrocyte distribution width (RBC) [Ratio] 13.4 % 11.6-14.6 [facility] Work Phone: Immature granulocytes/100 WBC (Bld) 0.400 % 0.0-0.9 [facility] Work Phone: Comment on above: IG% - Immature Granu locytes (promyelocytes, myelocytes and metamyelocytes) > 1% indicates that a LEFT SHIFT is Present. MCH (RBC) [Entitic mass] 28.4 pg 27.0-32.0 [facility] Work Phone: Nucleated RBC/100 WBC (Bld) [Ratio] 0 % 0-5 [facility] Work Phone: MCHC Auto (RBC) [Mass/Vol]on 06-19-2021 MCHC (RBC) [Mass/Vol] 31.1 g/dL 32-36 [facility] Work Phone: No Panel Informationon 06-19 Anti-Nuclear Antibody Screen Negative Negative [facility] Work Phone: Comment on above: Performed at: - [address] [id number] Director: Arjun Pisano PhD, Phone: [phone] Estimated GFR (MDRD) Amer 72 mL/min >60 [facility] Work Phone: Comment on above: GFR Calc Estimated GFR (MDRD) Non-Af Amer 60 mL/min >60 [facility] Work Phone: Comment on above: Non- GFR Calc Thyroid Stimulating Hormone (TSH) 0.96 uIU/mL 0.358-3.74 [facility] Work Phone: Platelets bldon 06-19-2021 Platelets (Bld) [#/Vol] 328 10*3/uL 150-450 [facility] Work Phone: Serum or plasma albumin manuel urement (mass/volume)on 06-19-2021 Albumin [Mass/Vol] 3.6 g/dL 3.2-5.0 [facility] Work Phone: Serum or plasma albumin/glob ulin mass ratioon 06-19-2021 Albumin/Globulin [Mass ratio] 0.8 {ratio} 0.9-2.4 [facility] Work Phone: Serum or plasma calcium manuel urement (mass/volume)on 06-19-2021 Calcium [Mass/Vol] 9.0 mg/dL 8.5-10.1 [facility] Work Phone: Serum or plasma creatinine m easurement (mass/volume)on 06-19-2021 Creatinine [Mass/Vol] 0.94 mg/dL 0.55-1.02 [facility] Work Phone: Comment on above: The validity of the calculated GFR & GFRAA in patients over 70 years has not been determined. Clinical correlation is essential. Serum or plasma urea nitroge n measurement (mass/volume)on 06-19-2021 Urea nitrogen [Mass/Vol] 28 mg/dL 7-18 [facility] Work Phone: Serum rheumatoid factor dete ctionon 06-19-2021 Rheumatoid factor Ql (S) < 10.0 IU/mL <15 [facility] Work Phone: Thin prep Papanicolaou smear with manual screeningon 06-19-2021 Thin prep Papanicolaou smear with manual screening 21 U/L 15-37 [facility] Work Phone: Thin prep Papanicolaou smear with manual screening 9 5-15 [facility] Work Phone: Laboratory - Microbiology an d Antimicrobial susceptibilityon 05-09-2021 SARS-CoV-2 (COVID-19) RNA RHYS+probe Ql (Unsp spec) Not detected Not Detect [facility] Work Phone: Comment on above: Normal [...] percentageon 2020 Chloride [Moles/Vol] 104 mmol/L 98-107 [facility] Work Phone: Glucose [Mass/Vol] 97 mg/dL 74-106 [facility] Work Phone: Comment on above: Please note revised GLUCOSE reference range effective 2017. Potassium [Moles/Vol] 4.1 mmol/L 3.5-5.1 [facility] Work Phone: Sodium [Moles/Vol] 137 mmol/L 136-145 [facility] Work Phone: Laboratory - Chemistry and C hemistry - challengeon 05-07-2021 CO2 [Moles/Vol] 27.0 mmol/L 21.0-32.0 [facility] Work Phone: Urea nitrogen/Creatinine [Mass ratio] 29.9 mg/mg 10-20 [facility] Work Phone: No Panel Informationon 05-07 Estimated GFR (MDRD) Amer 73 mL/min >60 [facility] Work Phone: Comment on above: GFR Calc Estimated GFR (MDRD) Non-Af Amer 60 mL/min >60 [facility] Work Phone: Comment on above: Non- GFR Calc Serum or plasma calcium manuel urement (mass/volume)on 05-07-2021 Calcium [Mass/Vol] 9.3 mg/dL 8.5-10.1 [facility] Work Phone: Serum or plasma creatinine m easurement (mass/volume)on 05-07-2021 Creatinine [Mass/Vol] 0.94 mg/dL 0.55-1.02 [facility] Work Phone: Comment on above: The validity of the calculated GFR & GFRAA in patients over 70 years has not been determined. Clinical correlation is essential. Serum or plasma urea nitroge n measurement (mass/volume)on 05-07-2021 Urea nitrogen [Mass/Vol] 28 mg/dL 7-18 [facility] Work Phone: Thin prep Papanicolaou smear with manual screeningon 05-07-2021 Thin prep Papanicolaou smear with manual screening 6 5-15 [facility] Work Phone: Basophil percentageon 2020 Chloride [Moles/Vol] 103 mmol/L 98-107 [facility] Work Phone: Glucose [Mass/Vol] 102 mg/dL 74-106 [facility] Work Phone: Comment on above: Fasting Glucose resu lt from 100 to 125 mg/dL suggests IMPAIRED HOMEOSTASIS per A.D.A. criteria.Please note revised GLUCOSE reference range effective 2017. Potassium [Moles/Vol] 4.4 mmol/L 3.5-5.1 [facility] Work Phone: Sodium [Moles/Vol] 138 mmol/L 136-145 [facility] Work Phone: Laboratory - Chemistry and C hemistry - challengeon 04-23-2021 CO2 [Moles/Vol] 28.0 mmol/L 21.0-32.0 [facility] Work Phone: Natriuretic peptide B (Bld) [Mass/Vol] 47.4 pg/mL 0-100 [facility] Work Phone: Urea nitrogen/Creatinine [Mass ratio] 29.1 mg/mg 10-20 [facility] Work Phone: No Panel Informationon 04-23 Estimated GFR (MDRD) Amer 68 mL/min >60 [facility] Work Phone: Comment on above: GFR Calc Estimated GFR (MDRD) Non-Af Amer 56 mL/min >60 [facility] Work Phone: Comment on above: Non- GFR Calc Serum or plasma calcium manuel urement (mass/volume)on 04-23-2021 Calcium [Mass/Vol] 9.5 mg/dL 8.5-10.1 [facility] Work Phone: Serum or plasma creatinine m easurement (mass/volume)on 04-23-2021 Creatinine [Mass/Vol] 1.00 mg/dL 0.55-1.02 [facility] Work Phone: Comment on above: The validity of the calculated GFR & GFRAA in patients over 70 years has not been determined. Clinical correlation is essential. Serum or plasma urea nitroge n measurement (mass/volume)on 04-23-2021 Urea nitrogen [Mass/Vol] 29 mg/dL 7-18 [facility] Work Phone: Thin prep Papanicolaou smear with manual screeningon 04-23-2021 Thin prep Papanicolaou smear with manual screening 7 5-15 [facility] Work Phone: Coumadin Management: Sunshine cooper Calcon 04-09-2017 INR Coag RelTime (Bld) Hospital lab Invalid Interpretation Code [facility] Work Phone: [phone] INR Coag RelTime (Bld) 2 to 3 Invalid Interpretation Code [facility] Work Phone: [phone] INR Coag RelTime (PPP) 3.3 {INR} Invalid Interpretation Code [facility] Work Phone: [phone] Prothrombin time (PT) Coag time (PPP) 32.0 s Invalid Interpretation Code [facility] Work Phone: [phone] Lab Report: Prothrombin Time w/INRon 04-09-2017 Prothrombin time (PT) Coag time (PPP) 32 s High 11.7-14.9 [facility] Work Phone: [phone] Coumadin Management: Vladimirari allison Calcon 03-20-2017 INR Coag RelTime (Bld) Hospital lab Invalid Interpretation Code [facility] Work Phone: [phone] INR Coag RelTime (Bld) 2 to 3 Invalid Interpretation Code [facility] Work Phone: [phone] INR Coag RelTime (PPP) 2.4 {INR} Invalid Interpretation Code [facility] Work Phone: [phone] Prothrombin time (PT) Coag time (PPP) 25.4 s Invalid Interpretation Code [facility] Work Phone: [phone] Lab Report: Prothrombin Time w/INRon 03-20-2017 Prothrombin time (PT) Coag time (PPP) 25.4 s High 11.7-14.9 [facility] Work Phone: [phone] Office Visit: [facility] 12-27-19 Documentation of current medications (procedure) Done Invalid Interpretation Code [facility] Work Phone: [phone] Fall risk assessment Yes Invalid Interpretation Code [facility] Work Phone: [phone] Replaced Document: Maura Pringle CG Observationson 12-26-2016 EKG QRS axis 2 deg Invalid Interpretation Code [facility] Work Phone: [phone] Interpretation Sinus Rhythm WITHIN NORMAL LIMITS Invalid Interpretation Code [facility] Work Phone: [phone] P [place] 22 deg Invalid Interpretation Code [facility] Work Phone: [phone] UT Interval 164 ms Invalid Interpretation Code [facility] Work Phone: [phone] Pulse (Heart Rate) 65 /min Invalid Interpretation Code [facility] Work Phone: [phone] QRS Duration 94 ms Invalid Interpretation Code [facility] Work Phone: [phone] QT Interval new path ms Invalid Interpretation Code [facility] Work Phone: [phone] QTc Lopez 406 ms Invalid Interpretation Code [facility] Work Phone: [phone] T [place] 36 deg Invalid Interpretation Code [facility] Work Phone: [phone] Chart Maintenanceon 09-27-19 17 Left ventricular Ejection fraction 60 % Invalid Interpretation Code [facility] Work Phone: [phone] Lab Report: Basic Metabolic Profile (BMP)on 03-14-2016 Anion gap 6 mmol/L Invalid Interpretation Code 5-15 [facility] Work Phone: [phone] BUN/Creatinine Ratio 32.1 RATIO High 10-[address] [facility] Work Phone: [phone] Calcium 9.1 mg/dL Invalid Interpretation Code 8.5-10.1 [facility] Work Phone: [phone] Chloride 95 mmol/L Low 98-107 [facility] Work Phone: [phone] CO2 31.0 mmol/L Invalid Interpretation Code 21.0-32.0 [facility] Work Phone: [phone] Creatinine 1.00 mg/dL Invalid Interpretation Code 0.55-1.20 [facility] Work Phone: [phone] eGFR (non-black) 57 mL/min/{1.73_m2} Low >60 [facility] Work Phone: [phone] eGFR (non-black) 69 mL/min/{1.73_m2} Invalid Interpretation Code >60 [facility] Work Phone: [phone] Glucose mass conc 109 mg/dL Invalid Interpretation Code 70-110 [facility] Work Phone: [phone] Potassium molar conc 5.0 mmol/L Invalid Interpretation Code 3.5-5.1 [facility] Work Phone: [phone] Sodium 132 mmol/L Low 136-145 [facility] Work Phone: [phone] Urea nitrogen 32 mg/dL High 7-18 [facility] Work Phone: [phone] Lab Report: CBC W/Diff, Auto matedon 03-14-2016 Absolute Neut 3.1 X10 3/UL Invalid Interpretation Code 2.0-7.7 [facility] Work Phone: [phone] Basophils/100 WBC Auto (Bld) 1.1 % High 0-1 [facility] Work Phone: [phone] Eosinophils/100 leukocytes 2.1 % Invalid Interpretation Code 0-5 [facility] Work Phone: [phone] Erythrocyte distribution width Auto Ratio (RBC) 13.5 % Invalid Interpretation Code 11.6-14.6 [facility] Work Phone: [phone] Erythrocytes (RBC) 4.00 10*6/uL Low 4.2-5.[address] [facility] Work Phone: [phone] Hematocrit (HCT) 35.7 % Low 37-47 [facility] Work Phone: [phone] Hemoglobin mass conc (Bld) 11.8 g/dL Low 12.0-15.0 [facility] Work Phone: [phone] Immature granulocytes/100 WBC (Bld) 0.400 % Invalid Interpretation Code 0.0-0.9 [facility] Work Phone: [phone] Lymphocytes 1.53 X10 3/UL Invalid Interpretation Code 0.83-4.51 [facility] Work Phone: [phone] Lymphocytes/100 leukocytes 28.7 % Invalid Interpretation Code 19-41 [facility] Work Phone: [phone] MCH 29.5 pg Invalid Interpretation Code 27.0-32.0 [facility] Work Phone: [phone] MCHC mass conc (RBC) 33.1 G/GL Invalid Interpretation Code 32-36 [facility] Work Phone: [phone] MCV 89.3 fL Invalid Interpretation Code 81-99 [facility] Work Phone: [phone] Monocytes/100 leukocytes 9.2 % Invalid Interpretation Code 0-10 [facility] Work Phone: [phone] Neutrophils/100 WBC Auto (Bld) 58.5 % Invalid Interpretation Code 47-70 [facility] Work Phone: [phone] Platelets 373 10*3/mm3 Invalid Interpretation Code 150-450 [facility] Work Phone: [phone] PMV by Jaci 9.4 fL Invalid Interpretation Code 6.2-12.0 [facility] Work Phone: [phone] RDW SD 44.0 fL High 35.1-43.9 [facility] Work Phone: [phone] WBC (Leukocytes) 5.3 10*3/uL Invalid Interpretation Code 4.4-11.0 [facility] Work Phone: [phone] Lab Report: Thyroid Stim Hor elier (TSH)on 03-14-2016 Thyroid stimulating hormone (TSH) 1.38 u[iU]/mL Invalid Interpretation Code 0.358-3.74 [facility] Work Phone: [phone] Office Visiton 03-14-2016 Dietary management education, guidance, and counseling (procedure) yes Invalid Interpretation Code [facility]: [phone] Tobacco use CPHS Never smoker Invalid Interpretation Code [facility] Work Phone: [phone] Clinical Lists 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: 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 Alanine aminotransferase (ALT) 21 U/L Invalid Interpretation Code [facility] Phone: [phone] Albumin 3.8 g/dL Invalid Interpretation Code [facility] Work Phone: [phone] Alkaline phosphatase (ALP) 62 U/L Invalid Interpretation Code [facility] Work Phone: [phone] Aspartate aminotransferase (AST) 28 U/L Invalid Interpretation Code [facility] Work Phone: [phone] Bilirubin (total) 0.40 mg/dL Invalid Interpretation Code [facility] Work Phone: [phone] Erythrocyte sedimentation rate 28 mm/h Invalid Interpretation Code [facility] Work Phone: [phone] Protein 7.6 g/dL Invalid Interpretation Code [facility] Work Phone: [phone] Office Visit: [facility] 09-21-19 15 General cardiovascular disease 10Y risk [#] Speer.D'Agostino 7 % Invalid Interpretation Code [facility] Work Phone: [phone] Tobacco smoking status NHIS Never Invalid Interpretation Code [facility] Work Phone: [phone] Lab Report: BNP,B-Type NATRI URETIC PEPTIDEon 08-11-2014 BNP 32.2 pg/mL Invalid Interpretation Code 0-100 [facility] Work Phone: [phone] Lab Report: Magnesiumon - Magnesium 2.0 mg/dL Invalid Interpretation Code 1.8-2.4 [facility] Work Phone: [phone] Lab Report: T4 Total, Thyrox inon 08-11-2014 Thyroxine (T4) 10.1 ug/dL Invalid Interpretation Code 4.8-13.9 [facility] Work Phone: [phone] Office Visit: MMM[facility] 08-12-19 15 cardiac risk group B Invalid Interpretation Code [facility] Work Phone: [phone] External Other: [employer]erred [employer] thod of Contacton 11-17-2013 methcontact secmsg Invalid Interpretation Code [facility] Work Phone: [phone] Clinical Lists Update: 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 07-28-2013 Cholesterol 210 mg/dL High [facility] Work Phone: [phone] HDL Cholesterol 93 mg/dL Invalid Interpretation Code [facility] Work Phone: [phone] LDL Cholesterol 104 mg/dL Invalid Interpretation Code [facility] Work Phone: [phone] Triglyceride 63 mg/dL Invalid Interpretation Code [facility] Work Phone: [phone] very low density lipoproteins 13 mg/dL Invalid Interpretation Code [facility] Work Phone: [phone] COVID-19 virus antigen assay SARS-CoV-2 (COVID-19) Ag IA.rapid Ql (Resp) [facility] Work Phone: Culture, urine Bacteria identified Cx Nom (U) Aerococcus viridans. [facility] Work Phone: Bacteria identified Cx Nom (U) Escherichia coli [facility] Work Phone: Hemoglobin.gastrointestinal Ql ([place]) Gastric Occult Blood Positive [facility] Work Phone: Vital Signs Date Time Vital Sign Value Performing Clinician Facility 12-17-2024 08:56-0400 Body mass index (BMI) [Ratio] 30.7 kg/m2 Dr. Bridget Swenson MD Work Phone: 4(708)468-636431 [place] [address] 12-17-2024 08:56-0400 Body weight 71.[address] Bridget Swenson MD Work Phone: 1(907)959-698093 [place] [address] 12-17-2024 08:56-0400 Diastolic blood pressure 65 mm[Hg] Dr. Bridget Swenson MD Work Phone: 8(587)073-226293 [place] [address] 12-17-2024 08:56-0400 Heart rate 75 /min Dr. Bridget Swenson MD Work Phone: 0(266)806-278093 [place] [address] 12-17-2024 08:56-0400 Respiratory rate 18 /min Dr. Bridget Swenson MD Work Phone: 4(993)115-839893 [place] [address] 12-17-2024 08:56-0400 SaO2% (BldA) [Mass fraction] 94 % Dr. Bridget Swenson MD Work Phone: 5(381)459-347093 [place] [address] 12-17-2024 08:56-0400 Systolic blood pressure 110 mm[Hg] Dr. Bridget Swenson MD Work Phone: 3(089)218-497293 [place] [address] 11-19-2024 11:01-0400 Diastolic blood pressure 64 mm[Hg] Dr. Bridget Swenson MD Work Phone: 9(947)365-748193 [place] [address] 11-19-2024 11:01-0400 Heart rate 58 /min Dr. Bridget Swenson MD Work Phone: 8(495)669-064293 [place] [address] 11-19-2024 11:01-0400 Systolic blood pressure 145 mm[Hg] Dr. Bridget Swenson MD Work Phone: 0(901)722-422293 [place] [address] 11-19-2024 10:43-0400 Body height 152.[address] Bridget Swenson MD Work Phone: 3(419)592-955793 [place] [address] 11-19-2024 10:43-0400 Body mass index (BMI) [Ratio] 29.9 kg/m2 Dr. Bridget Swenson MD Work Phone: [facility] 11-19-2024 10:43-0400 Body weight 69.[address] Bridget Swenson MD Work Phone: 2(772)086-664931 [place] [address] 11-19-2024 10:43-0400 Respiratory rate 16 /min Dr. Bridget Swenson MD Work Phone: 3(177)538-821593 [place] [address] 11-17-2024 19:00-0400 Diastolic blood pressure 66 mm[Hg] Dr. Bridget Swenson MD Work Phone: 2(697)196-122431 [place] [address] 11-17-2024 19:00-0400 Heart rate 85 /min Dr. Bridget Swenson MD Work Phone: 5(297)138-838193 [place] [address] 11-17-2024 19:00-0400 Respiratory rate 11 /min Dr. Bridget Swenson MD Work Phone: 6(802)414-030993 [place] [address] 11-17-2024 19:00-0400 SaO2% (BldA) [Mass fraction] 97 % Dr. Bridget Swenson MD Work Phone: 3(393)779-157131 [place] [address] 11-17-2024 19:00-0400 Systolic blood pressure 143 mm[Hg] Dr. Bridget Swenson MD Work Phone: 4(092)979-684693 [place] [address] 11-17-2024 12:56-0400 Body height 152.[address] Bridget Swenson MD Work Phone: 2(245)636-032831 [place] [address] 11-17-2024 12:56-0400 Body mass index (BMI) [Ratio] 30.9 kg/m2 Dr. Bridget Swenson MD Work Phone: 7(144)137-150693 [place] [address] 11-17-2024 12:56-0400 Body temperature 97.9 [degF] Dr. Bridget Swenson MD Work Phone: 7(823)528-287393 [place] [address] 11-17-2024 12:56-0400 Body weight [address] Bridget Swenosn MD Work Phone: 6(655)598-687493 [place] [address] 10-13-2024 03:00-0400 Diastolic blood pressure 54 mm[Hg] Nichole Guerra DO Work Phone: [facility] 10-13-2024 03:00-0400 Heart rate 82 /min Nichole Guerra DO Work Phone: [facility] 10-13-2024 03:00-0400 Respiratory rate 18 /min Nichole Guerra DO Work Phone: [facility] 10-13-2024 03:00-0400 SaO2% (BldA) [Mass fraction] 93 % Nichole Guerra DO Work Phone: [facility] 10-13-2024 03:00-0400 Systolic blood pressure 143 mm[Hg] Nichole Guerra DO Work Phone: [facility] 10-12-2024 23:14-0400 Body temperature 97.81 [degF] Nichole Guerra DO Work Phone: [facility] 10-09-2024 12:36-0400 Body temperature 98 [degF] Dr. Bridget Swenson MD Work Phone: [facility] 10-09-2024 12:36-0400 Diastolic blood pressure 48 mm[Hg] Dr. Bridget Swenson MD Work Phone: [facility] 10-09-2024 12:36-0400 Heart rate 68 /min Dr. Bridget Swenson MD Work Phone: [facility] 10-09-2024 12:36-0400 Respiratory rate 16 /min Dr. Bridget Swenson MD Work Phone: [facility] 10-09-2024 12:36-0400 SaO2% (BldA) [Mass fraction] 98 % Dr. Bridget Swenson MD Work Phone: [facility] 10-09-2024 12:36-0400 Systolic blood pressure 124 mm[Hg] Dr. Bridget Swenson MD Work Phone: [facility] 10-09-2024 11:50-0400 Body mass index (BMI) [Ratio] 29.7 kg/m2 Dr. Bridget Swenson MD Work Phone: 8(285)307-500631 [place] [address] 10-09-2024 06:00-0400 Body weight 69.[address] Bridget Swenson MD Work Phone: 0(508)485-555993 [place] [address] 10-07-2024 14:01-0400 Body height 152.[address] Bridget Swenson MD Work Phone: 7(039)645-465593 [place] [address] 10-04-2024 14:00-0400 Diastolic blood pressure 52 mm[Hg] Dr. Bridget Swenson MD Work Phone: 9(383)082-487093 [place] [address] 10-04-2024 14:00-0400 Systolic blood pressure 151 mm[Hg] Dr. Bridget Swenson MD Work Phone: 6(363)771-453893 [place] [address] 10-04-2024 01:06-0400 Body temperature 97.9 [degF] Dr. Bridget Swenson MD Work Phone: 1(699)819-059393 [place] [address] 10-04-2024 01:06-0400 Heart rate 88 /min Dr. Bridget Swenson MD Work Phone: 3(918)041-963493 [place] [address] 10-04-2024 01:06-0400 Respiratory rate 18 /min Dr. Bridget Swenson MD Work Phone: 2(604)901-611993 [place] [address] 10-04-2024 01:06-0400 SaO2% (BldA) [Mass fraction] 99 % Dr. Bridget Swenson MD Work Phone: 1(575)048-003231 [place] [address] 10-03-2024 19:05-0400 Body mass index (BMI) [Ratio] 26.6 kg/m2 Dr. Bridget Swenson MD Work Phone: 1(968)020-489393 [place] [address] 10-03-2024 19:05-0400 Body weight 70.[address] Bridget Swenson MD Work Phone: 9(840)435-505793 [place] [address] 10-03-2024 17:44-0400 Body height 162.[address] Bridget Swenson MD Work Phone: [facility] 10-01-2024 20:11-0400 Body temperature 98.2 [degF] Dr. Bridget Swenson MD Work Phone: 1(669)721-915531 [place] [address] 10-01-2024 20:11-0400 Heart rate 86 /min Dr. Bridget Swenson MD Work Phone: 5(390)986-004393 [place] [address] 10-01-2024 20:11-0400 Respiratory rate 20 /min Dr. Bridget Swenson MD Work Phone: 6(207)850-334693 [place] [address] 10-01-2024 20:11-0400 SaO2% (BldA) [Mass fraction] 97 % Dr. Bridget Swenson MD Work Phone: 2(322)606-661393 [place] [address] 10-01-2024 18:00-0400 Diastolic blood pressure 65 mm[Hg] Dr. Bridget Swenson MD Work Phone: 8(543)991-985693 [place] [address] 10-01-2024 18:00-0400 Systolic blood pressure 160 mm[Hg] Dr. Bridget Swenson MD Work Phone: 3(584)029-929393 [place] [address] 10-01-2024 15:22-0400 Body mass index (BMI) [Ratio] 27.2 kg/m2 Dr. Bridget Swenson MD Work Phone: 3(689)123-944693 [place] [address] 10-01-2024 15:22-0400 Body weight [address] Bridget Swenson MD Work Phone: 1(439)797-619793 [place] [address] 09-03-2024 12:18-0400 Body temperature 97.8 [degF] Dr. Bridget Swenson MD Work Phone: 0(849)468-376193 [place] [address] 09-03-2024 12:18-0400 Diastolic blood pressure 45 mm[Hg] Dr. Bridget Swenson MD Work Phone: 5(882)599-261893 [place] [address] 09-03-2024 12:18-0400 Heart rate 75 /min Dr. Bridget Swenson MD Work Phone: 9(308)932-550093 [place] [address] 09-03-2024 12:18-0400 Respiratory rate 16 /min Dr. Bridget Swenson MD Work Phone: [facility] 09-03-2024 12:18-0400 SaO2% (BldA) [Mass fraction] 96 % Dr. Bridget Swenson MD Work Phone: [facility] 09-03-2024 12:18-0400 Systolic blood pressure 134 mm[Hg] Dr. Bridget Swenson MD Work Phone: [facility] 09-01-2024 13:10-0400 Body weight [address] Bridget Swenson MD Work Phone: [facility] 09-01-2024 03:03-0400 Body mass index (BMI) [Ratio] 28 kg/m2 Dr. Bridget Swenson MD Work Phone: [facility] 08-31-2024 16:18-0400 Body mass index (BMI) [Ratio] 31.6 kg/m2 Dr. Bridget Swenson MD Work Phone: [facility] 08-31-2024 16:07-0400 Diastolic blood pressure 44 mm[Hg] Dr. Bridget Swenson MD Work Phone: [facility] 08-31-2024 16:07-0400 Heart rate 98 /min Dr. Bridget Swenson MD Work Phone: [facility] 08-31-2024 16:07-0400 Systolic blood pressure 138 mm[Hg] Dr. Bridget Swenson MD Work Phone: [facility] 08-31-2024 16:04-0400 Body temperature 98.2 [degF] Dr. Bridget Swenson MD Work Phone: [facility] 08-31-2024 16:04-0400 Respiratory rate 16 /min Dr. Bridget Swenson MD Work Phone: [facility] 08-31-2024 16:04-0400 SaO2% (BldA) [Mass fraction] 94 % Dr. Bridget Swenson MD Work Phone: [facility] 08-31-2024 14:33-0400 Body weight 73.[address] Bridget Swenson MD Work Phone: 8(817)343-465631 [place] [address] 08-30-2024 23:35-0400 Inhaled oxygen concentration 21 % Dr. Bridget Swenson MD Work Phone: 5(184)563-133293 [place] [address] 08-30-2024 14:00-0400 Diastolic blood pressure 78 mm[Hg] Dr. Bridget Swenson MD Work Phone: 6(574)133-119531 [place] [address] 08-30-2024 14:00-0400 Heart rate 89 /min Dr. Bridget Swenson MD Work Phone: 5(902)561-071093 [place] [address] 08-30-2024 14:00-0400 Respiratory rate 18 /min Dr. Bridget Swenson MD Work Phone: 4(244)233-250993 [place] [address] 08-30-2024 14:00-0400 SaO2% (BldA) [Mass fraction] 95 % Dr. Bridget Swenson MD Work Phone: 3(485)901-877193 [place] [address] 08-30-2024 14:00-0400 Systolic blood pressure 166 mm[Hg] Dr. Bridget Swenson MD Work Phone: 3(249)539-558793 [place] [address] 08-30-2024 13:30-0400 Body temperature 98.1 [degF] Dr. Bridget Swenson MD Work Phone: 0(221)230-928793 [place] [address] 08-30-2024 10:25-0400 Body height 152.[address] Bridget Swenson MD Work Phone: 8(633)782-700793 [place] [address] 08-30-2024 10:25-0400 Body mass index (BMI) [Ratio] 30.8 kg/m2 Dr. Bridget Swenson MD Work Phone: 4(766)289-981393 [place] [address] 08-30-2024 10:25-0400 Body weight 71.[address] Bridget Swenson MD Work Phone: 9(709)290-815093 [place] [address] 07-26-2024 11:21-0400 Body mass index (BMI) [Ratio] 32.5 kg/m2 Dr. Bridget Swenson MD Work Phone: [facility] 07-26-2024 11:21-0400 Body weight 75.[address] Bridget Swenson MD Work Phone: [facility] 07-26-2024 11:21-0400 Diastolic blood pressure 74 mm[Hg] Dr. Bridget Swenson MD Work Phone: [facility] 07-26-2024 11:21-0400 Heart rate 63 /min Dr. Bridget Swenson MD Work Phone: [facility] 07-26-2024 11:21-0400 Respiratory rate 18 /min Dr. Bridget Swenson MD Work Phone: 9(595)725-741731 [place] [address] 07-26-2024 11:21-0400 SaO2% (BldA) [Mass fraction] 96 % Dr. Bridget Swenson MD Work Phone: [facility] 07-26-2024 11:21-0400 Systolic blood pressure 169 mm[Hg] Dr. Bridget Swenson MD Work Phone: [facility] 07-26-2024 09:46-0400 Body temperature 97.9 [degF] Dr. Bridget Swenson MD Work Phone: [facility] 07-26-2024 09:46-0400 Diastolic blood pressure 53 mm[Hg] Dr. Bridget Swenson MD Work Phone: [facility] 07-26-2024 09:46-0400 Heart rate 74 /min Dr. Bridget Swenson MD Work Phone: [facility] 07-26-2024 09:46-0400 Respiratory rate 16 /min Dr. Bridget Swenson MD Work Phone: [facility] 07-26-2024 09:46-0400 SaO2% (BldA) [Mass fraction] 95 % Dr. Bridget Swenson MD Work Phone: 8(958)517-401020 [place] [address] 07-26-2024 09:46-0400 Systolic blood pressure 138 mm[Hg] Dr. Bridget Swenson MD Work Phone: [facility] 07-21-2024 09:54-0400 Body weight 76.[address] Bridget Swesnon MD Work Phone: [facility] 07-20-2024 16:17-0400 Body mass index (BMI) [Ratio] 33 kg/m2 Dr. Bridget Swenson MD Work Phone: [facility] 07-10-2024 09:09-0500 Inhaled oxygen flow rate 2 L/min Dr. Bridget Swenson MD Work Phone: 5(317)762-147931 [place] [address] 06-26-2024 17:49-0500 Diastolic blood pressure 50 mm[Hg] Dr. Bridget Swenson MD Work Phone: 0(723)900-784531 [place] [address] 06-26-2024 17:49-0500 Heart rate 67 /min Dr. Bridget Swenson MD Work Phone: [facility] 06-26-2024 17:49-0500 Respiratory rate 16 /min Dr. Bridget Swenson MD Work Phone: 4(651)310-699131 [place] [address] 06-26-2024 17:49-0500 SaO2% (BldA) [Mass fraction] 99 % Dr. Bridget Swenson MD Work Phone: [facility] 06-26-2024 17:49-0500 Systolic blood pressure 198 mm[Hg] Dr. Bridget Swenson MD Work Phone: [facility] 06-26-2024 16:53-0500 Inhaled oxygen flow rate 2 L/min Dr. Bridget Swenson MD Work Phone: 1(138)535-825331 [place] [address] 06-26-2024 16:00-0500 Body temperature 98 [degF] Dr. Bridget Swenson MD Work Phone: 3(663)039-620131 [place] [address] 06-26-2024 12:27-0500 Body mass index (BMI) [Ratio] 32.5 kg/m2 Dr. Bridget Swenson MD Work Phone: [facility] 06-26-2024 12:27-0500 Body weight 75.[address] Bridget Swenson MD Work Phone: [facility] 06-15-2024 10:46-0500 Body height 152.4 cm Jessa Mikula JUNIOR ADMINISTRATIVE ASSISTANT.HUMAN RESOURCES BENEFITS MANAGER Work Phone: [facility] 06-15-2024 10:46-0500 Body mass index (BMI) [Ratio] 31.64 kg/m2 Jessa Mikula JUNIOR ADMINISTRATIVE ASSISTANT.HUMAN RESOURCES BENEFITS MANAGER Work Phone: [facility] 06-15-2024 10:46-0500 Body weight 73.48 kg Jessa Mikula JUNIOR ADMINISTRATIVE ASSISTANT.HUMAN RESOURCES BENEFITS MANAGER Work Phone: [facility] 06-15-2024 10:46-0500 Diastolic blood pressure 44 mm[Hg] Jessa Mikula JUNIOR ADMINISTRATIVE ASSISTANT.HUMAN RESOURCES BENEFITS MANAGER Work Phone: [facility] 06-15-2024 10:46-0500 Heart rate 84 /min Jessa Mikula JUNIOR ADMINISTRATIVE ASSISTANT.HUMAN RESOURCES BENEFITS MANAGER Work Phone: [facility] 06-15-2024 10:46-0500 Systolic blood pressure 171 mm[Hg] Jessa Mikula JUNIOR ADMINISTRATIVE ASSISTANT.HUMAN RESOURCES BENEFITS MANAGER Work Phone: [facility] 06-15-2024 05:30-0500 Heart rate 69 /min Dr. Bridget Swenson MD Work Phone: [facility] 06-15-2024 05:30-0500 Respiratory rate 16 /min Dr. Bridget Swenson MD Work Phone: [facility] 06-14-2024 19:57-0500 Diastolic blood pressure 52 mm[Hg] Dr. Bridget Swenson MD Work Phone: [facility] 06-14-2024 19:57-0500 Systolic blood pressure 157 mm[Hg] Dr. Bridget Swenson MD Work Phone: [facility] 06-14-2024 19:15-0500 Body temperature 98.2 [degF] Dr. Bridget Swenson MD Work Phone: 2(075)199-172031 [place] [address] 06-14-2024 19:15-0500 SaO2% (BldA) [Mass fraction] 95 % Dr. Bridget Swenson MD Work Phone: 1(744)211-746955 [address] 06-08-2024 15:57-0500 Body mass index (BMI) [Ratio] 32.9 kg/m2 Dr. Bridget Swenson MD Work Phone: 2(024)932-360393 [place] [address] 06-08-2024 15:57-0500 Body weight 76.[address] Bridget Swenson MD Work Phone: 8(780)792-732393 [place] [address] 06-06-2024 05:54-0500 Inhaled oxygen flow rate 2 L/min Dr. Bridget Swenson MD Work Phone: 6(289)519-317993 [place] [address] 05-30-2024 10:00-0500 Diastolic blood pressure 68 mm[Hg] Dr. Bridget Swenson MD Work Phone: 6(342)471-472593 [place] [address] 05-30-2024 10:00-0500 Systolic blood pressure 138 mm[Hg] Dr. Bridget Swenson MD Work Phone: 1(739)462-792193 [place] [address] 05-30-2024 08:36-0500 Heart rate 68 /min Dr. Bridget Swenson MD Work Phone: 8(768)231-313393 [place] [address] 05-30-2024 04:38-0500 Body temperature 98 [degF] Dr. Bridget Swenson MD Work Phone: 5(546)370-553855 [address] 05-30-2024 04:38-0500 Respiratory rate 16 /min Dr. Bridget Swenson MD Work Phone: 9(798)578-650293 [place] [address] 05-30-2024 04:38-0500 SaO2% (BldA) [Mass fraction] 95 % Dr. Bridget Swenson MD Work Phone: 0(945)641-125731 [place] [address] 05-28-2024 07:20-0500 Inhaled oxygen flow rate 2 L/min Dr. Bridget Swenson MD Work Phone: [facility] 05-26-2024 06:00-0500 Body mass index (BMI) [Ratio] 32.1 kg/m2 Dr. Bridget Swenson MD Work Phone: [facility] [facility] 05-26-2024 06:00-0500 Body weight 74.[address] Bridget Swenson MD Work Phone: [facility] 05-18-2024 20:34-0500 Inhaled oxygen concentration 21 % Dr. Bridget Swenson MD Work Phone: [facility] 05-14-2024 12:15-0500 Diastolic blood pressure 71 mm[Hg] [facility] 05-14-2024 12:15-0500 Heart rate 60 /min [facility] 05-14-2024 12:15-0500 SaO2% (BldA) [Mass fraction] 94 % [facility] 05-14-2024 12:15-0500 Systolic blood pressure 157 mm[Hg] [facility] 05-14-2024 12:05-0500 Respiratory rate 33 /min [facility] 05-14-2024 11:32-0500 Body temperature 97.39 [degF] [facility] 05-11-2024 16:30-0500 Diastolic blood pressure 53 mm[Hg] Dr. Bridget Swenson MD Work Phone: [facility] 05-11-2024 16:30-0500 Heart rate 87 /min Dr. Bridget Swenson MD Work Phone: [facility] 05-11-2024 16:30-0500 Inhaled oxygen flow rate 2 L/min Dr. Bridget Swenson MD Work Phone: [facility] 05-11-2024 16:30-0500 Respiratory rate 14 /min Dr. Bridget Swenson MD Work Phone: [facility] 05-11-2024 16:30-0500 SaO2% (BldA) [Mass fraction] 99 % Dr. Bridget Swenson MD Work Phone: [facility] 05-11-2024 16:30-0500 Systolic blood pressure 145 mm[Hg] Dr. Bridget Swenson MD Work Phone: [facility] 05-11-2024 11:52-0500 Body mass index (BMI) [Ratio] 34 kg/m2 Dr. Bridget Swenson MD Work Phone: 1(151)[phone] [place] [address] 05-11-2024 11:52-0500 Body weight 78.[address] Bridget Swenson MD Work Phone: [facility] 05-11-2024 11:46-0500 Body temperature 98 [degF] Dr. Bridget Swenson MD Work Phone: [phone])[phone] [address] 05-12-2023 09:28-0500 Heart rate 87 /min Dr. Doyle Sewnson Work Phone: 6(816)[phone] [place] [address] 05-12-2023 09:28-0500 Respiratory rate 16 /min Dr. Doyle Swenson Work Phone: [facility] 05-12-2023 09:28-0500 SaO2% (BldA) [Mass fraction] 92 % Dr. Dolye Swenson Work Phone: [facility] 05-12-2023 07:31-0500 Body height 152.[address] Doyle Swenson Work Phone: [facility] 05-12-2023 07:31-0500 Body temperature 99.9 [degF] Dr. Doyle Swenson Work Phone: [facility] 05-12-2023 07:31-0500 Diastolic blood pressure 81 mm[Hg] Dr. Doyle Swenson Work Phone: [facility] 05-12-2023 07:31-0500 Systolic blood pressure 201 mm[Hg] Dr. Doyle Swenson Work Phone: [facility] 01-28-2023 14:05-0400 Body height 152.[address] Doyle Swenson Work Phone: [facility] 01-28-2023 14:05-0400 Body mass index (BMI) [Ratio] 33.5 kg/m2 Dr. Doyle Swenson Work Phone: [facility] 01-28-2023 14:05-0400 Body weight 78.[address] Doyle Swenson Work Phone: [facility] 01-28-2023 14:05-0400 Diastolic blood pressure 82 mm[Hg] Dr. Doyle Swenson Work Phone: [facility] 01-28-2023 14:05-0400 Heart rate 66 /min Dr. Doyle Swenson Work Phone: [facility] 01-28-2023 14:05-0400 Respiratory rate 18 /min Dr. Doyle Swenson Work Phone: [facility] 01-28-2023 14:05-0400 Systolic blood pressure 186 mm[Hg] Dr. Doyle Swenson Work Phone: [facility] 06-18-2022 10:21-0500 Body height 152.[address] Doyle Swenson Work Phone: [facility] 05-18-2022 19:38-0500 Diastolic blood pressure 80 mm[Hg] Dr. Doyle Swenson Work Phone: [facility] 05-18-2022 19:38-0500 Heart rate 78 /min Dr. Doyle Swenson Work Phone: [facility] 05-18-2022 19:38-0500 Respiratory rate 15 /min Dr. Doyle Swenson Work Phone: [facility] 05-18-2022 19:38-0500 SaO2% (BldA) [Mass fraction] 0 % Dr. Doyle Swenson Work Phone: [facility] 05-18-2022 19:38-0500 Systolic blood pressure 124 mm[Hg] Dr. Doyle Swenson Work Phone: [facility] 05-18-2022 16:04-0500 Body height 152.[address] Doyle Swenson Work Phone: [facility] 05-18-2022 16:04-0500 Body mass index (BMI) [Ratio] 33.7 kg/m2 Dr. Doyle Swenson Work Phone: [facility] 05-18-2022 16:04-0500 Body temperature 98.8 [degF] Dr. Doyle Swenson Work Phone: [facility] 05-18-2022 16:04-0500 Body weight 78.[address] Doyle Swenson Work Phone: [facility] 04-18-2022 14:56-0500 Body temperature 97.7 [degF] Dr. Doyle Swenson Work Phone: [facility] 04-18-2022 14:56-0500 Diastolic blood pressure 70 mm[Hg] Dr. Doyle Swenson Work Phone: [facility] 04-18-2022 14:56-0500 Heart rate 79 /min Dr. Doyle Swenson Work Phone: [facility] 04-18-2022 14:56-0500 Respiratory rate 18 /min Dr. Doyle Swenson Work Phone: [facility] 04-18-2022 14:56-0500 SaO2% (BldA) [Mass fraction] 95 % Dr. Doyle Swenson Work Phone: [facility] 04-18-2022 14:56-0500 Systolic blood pressure 145 mm[Hg] Dr. Doyle Swenson Work Phone: [facility] 04-17-2022 13:55-0500 Body height 152.[address] Doyle Swenson Work Phone: [facility] Work Phone: 04-17-2022 13:55-0500 Body mass index (BMI) [Ratio] 33.6 kg/m2 Dr. Doyle Swenson Work Phone: [facility] 04-17-2022 13:55-0500 Body weight 78.[address] Doyle Swenson Work Phone: [facility] 04-11-2022 14:28-0500 Inhaled oxygen flow rate 2 L/min Dr. Doyle Swenson Work Phone: [facility] 04-11-2022 09:04-0500 Body temperature 98 [degF] Dr. Doyle Swenson Work Phone: [facility] Work Phone: 04-11-2022 09:04-0500 Diastolic blood pressure 48 mm[Hg] Dr. Doyle Swenson Work Phone: [facility] Work Phone: 04-11-2022 09:04-0500 Heart rate 65 /min Dr. Doyle Swenson Work Phone: [facility] Work Phone: 04-11-2022 09:04-0500 Inhaled oxygen flow rate 1 L/min Dr. Doyle Swenson Work Phone: [facility] Work Phone: 04-11-2022 09:04-0500 Respiratory rate 16 /min Dr. Doyle Swenson Work Phone: [facility] Work Phone: 04-11-2022 09:04-0500 SaO2% (BldA) [Mass fraction] 96 % Dr. Doyle Swenson Work Phone: [facility] Work Phone: 04-11-2022 09:04-0500 Systolic blood pressure 138 mm[Hg] Dr. Doyle Swenson Work Phone: [facility] Work Phone: 04-10-2022 22:43-0500 Body height 152.[address] Doyle Swenson Work Phone: [facility] Work Phone: 04-10-2022 22:43-0500 Body mass index (BMI) [Ratio] 33.7 kg/m2 Dr. Doyle Swenson Work Phone: [facility] Work Phone: 04-10-2022 22:43-0500 Body weight 78.[address] Doyle Swenson Work Phone: [facility] Work Phone: 04-10-2022 21:10-0500 Body temperature 97.9 [degF] Dr. Doyle Swenson Work Phone: [facility] Work Phone: 04-10-2022 21:10-0500 Diastolic blood pressure 59 mm[Hg] Dr. Doyle Swenson Work Phone: [facility] Work Phone: 04-10-2022 21:10-0500 Heart rate 89 /min Dr. Doyle Swenson Work Phone: [facility] Work Phone: 04-10-2022 21:10-0500 Respiratory rate 18 /min Dr. Doyle Swenson Work Phone: [facility] Work Phone: 04-10-2022 21:10-0500 SaO2% (BldA) [Mass fraction] 93 % Dr. Doyle Swenson Work Phone: [facility] Work Phone: 04-10-2022 21:10-0500 Systolic blood pressure 142 mm[Hg] Dr. Doyle Swenson Work Phone: [facility] Work Phone: 04-10-2022 16:47-0500 Body height 152.[address] Doyle Swenson Work Phone: [facility] Work Phone: 04-10-2022 16:47-0500 Body mass index (BMI) [Ratio] 33.5 kg/m2 Dr. Doyle Swenson Work Phone: [facility] Work Phone: 04-10-2022 16:47-0500 Body weight 78.[address] Doyle Swenson Work Phone: [facility] Work Phone: 03-18-2022 14:05-0500 Body temperature 97.2 [degF] Dr. Doyle Swenson Work Phone: [facility] 03-18-2022 14:05-0500 Diastolic blood pressure 46 mm[Hg] Dr. Doyle Swenson Work Phone: [facility] 03-18-2022 14:05-0500 Heart rate 73 /min Dr. Doyle Swenson Work Phone: [facility] 03-18-2022 14:05-0500 Respiratory rate 16 /min Dr. Doyle Swenson Work Phone: [facility] 03-18-2022 14:05-0500 SaO2% (BldA) [Mass fraction] 99 % Dr. Doyle Swensno Work Phone: [facility] 03-18-2022 14:05-0500 Systolic blood pressure 135 mm[Hg] Dr. Doyle Swenson Work Phone: [facility] 03-15-2022 14:00-0400 Body height 154.[address] Doyle Swenson Work Phone: [facility] Work Phone: 03-15-2022 14:00-0400 Body weight 78.[address] Doyle Swenson Work Phone: [facility] 02-18-2022 14:00-0400 Body temperature 97.2 [degF] Dr. Doyle Swenson Work Phone: [facility] Work Phone: 02-18-2022 14:00-0400 Diastolic blood pressure 56 mm[Hg] Dr. Doyle Swenson Work Phone: [facility] Work Phone: 02-18-2022 14:00-0400 Heart rate 68 /min Dr. Doyle Swenson Work Phone: [facility] Work Phone: 02-18-2022 14:00-0400 Respiratory rate 16 /min Dr. Doyle Swenson Work Phone: [facility] Work Phone: 02-18-2022 14:00-0400 SaO2% (BldA) [Mass fraction] 94 % Dr. Doyle Swenson Work Phone: [facility] Work Phone: 02-18-2022 14:00-0400 Systolic blood pressure 113 mm[Hg] Dr. Doyle Swenson Work Phone: [facility] Work Phone: 02-17-2022 12:39-0400 Body weight 80.[address] Doyle Swenson Work Phone: [facility] Work Phone: 02-17-2022 11:52-0400 Body height 154.[address] Doyle Swenson Work Phone: [facility] Work Phone: 02-16-2022 11:58-0400 Body mass index (BMI) [Ratio] 33.7 kg/m2 Dr. Doyle Swenson Work Phone: [facility] 02-14-2022 12:37-0400 Body temperature 97.9 [degF] Dr. Doyle Swenson Work Phone: [facility] 02-14-2022 12:37-0400 Diastolic blood pressure 51 mm[Hg] Dr. Doyle Swenson Work Phone: [facility] 02-14-2022 12:37-0400 Heart rate 70 /min Dr. Doyle Swenson Work Phone: [facility] 02-14-2022 12:37-0400 Respiratory rate 18 /min Dr. Doyle Swenson Work Phone: [facility] 02-14-2022 12:37-0400 SaO2% (BldA) [Mass fraction] 94 % Dr. Doyle Swenson Work Phone: [facility] 02-14-2022 12:37-0400 Systolic blood pressure 126 mm[Hg] Dr. Doyle Swenson Work Phone: [facility] 02-12-2022 14:50-0400 Body height 154.[address] Doyle Swenson Work Phone: [facility] Work Phone: 02-12-2022 14:50-0400 Body weight 81.[address] Doyle Swenson Work Phone: [facility] 02-11-2022 17:06-0400 Body mass index (BMI) [Ratio] 74.1 kg/m2 Dr. Doyle Swenson Work Phone: [facility] 02-11-2022 13:24-0400 Body temperature 97.7 [degF] Dr. Doyle Swenson Work Phone: [facility] 02-11-2022 13:24-0400 Diastolic blood pressure 62 mm[Hg] Dr. Doyle Swenson Work Phone: [facility] 02-11-2022 13:24-0400 Heart rate 66 /min Dr. Doyle Swenson Work Phone: [facility] 02-11-2022 13:24-0400 Respiratory rate 18 /min Dr. Doyle Swenson Work Phone: [facility] 02-11-2022 13:24-0400 SaO2% (BldA) [Mass fraction] 91 % Dr. Doyle Swenson Work Phone: [facility] 02-11-2022 13:24-0400 Systolic blood pressure 127 mm[Hg] Dr. Doyle Swenson Work Phone: [facility] 02-11-2022 07:40-0400 Inhaled oxygen flow rate 2 L/min Dr. Doyle Swenson Work Phone: [facility] 02-09-2022 21:49-0400 Body height 154.[address] Doyle Swenson Work Phone: [facility] Work Phone: 02-09-2022 21:49-0400 Body mass index (BMI) [Ratio] 33.5 kg/m2 Dr. Doyle Swenson Work Phone: [facility] 02-09-2022 21:49-0400 Body weight 80.[address] Doyle Swenson Work Phone: [facility] 02-09-2022 21:23-0400 Body temperature 98.4 [degF] Dr. Doyle Swenson Work Phone: [facility] Work Phone: 02-09-2022 21:23-0400 Diastolic blood pressure 52 mm[Hg] Dr. Doyle Swenson Work Phone: [facility] Work Phone: 02-09-2022 21:23-0400 Heart rate 78 /min Dr. Doyle Swenson Work Phone: [facility] Work Phone: 02-09-2022 21:23-0400 Respiratory rate 16 /min Dr. Doyle Swenson Work Phone: [facility] Work Phone: 02-09-2022 21:23-0400 SaO2% (BldA) [Mass fraction] 97 % Dr. Doyle Swenson Work Phone: [facility] Work Phone: 02-09-2022 21:23-0400 Systolic blood pressure 138 mm[Hg] Dr. Doyle Swenson Work Phone: [facility] Work Phone: 02-09-2022 16:59-0400 Body height 154.[address] Doyle Swenson Work Phone: [facility] Work Phone: 02-09-2022 16:59-0400 Body mass index (BMI) [Ratio] 35.9 kg/m2 Dr. Doyle Swenson Work Phone: [facility] Work Phone: 02-09-2022 16:59-0400 Body weight 86.[address] Doyle Swenson Work Phone: [facility] Work Phone: 01-01-2022 14:25-0400 Body height 154.[address] Doyle Swenson Work Phone: [facility] Work Phone: 01-01-2022 14:25-0400 Body mass index (BMI) [Ratio] 34 kg/m2 Dr. Doyle Swenson Work Phone: [facility] Work Phone: 01-01-2022 14:25-0400 Body weight 81.[address] Doyle Swenson Work Phone: [facility] Work Phone: 01-01-2022 14:25-0400 Diastolic blood pressure 69 mm[Hg] Dr. Doyle Swenson Work Phone: [facility] Work Phone: 01-01-2022 14:25-0400 Heart rate 69 /min Dr. Doyle Swenson Work Phone: [facility] Work Phone: 01-01-2022 14:25-0400 Respiratory rate 18 /min Dr. Doyle Swenson Work Phone: [facility] Work Phone: 01-01-2022 14:25-0400 Systolic blood pressure 176 mm[Hg] Dr. Doyle Swenson Work Phone: [facility] Work Phone: 11-22-2021 14:45-0400 Body height 154.[address] Doyle Swenson Work Phone: [facility] Work Phone: 11-22-2021 14:45-0400 Body mass index (BMI) [Ratio] 34 kg/m2 Dr. Doyle Swenson Work Phone: [facility] Work Phone: 11-22-2021 14:45-0400 Body weight 81.[address] Doyle Swenson Work Phone: [facility] Work Phone: 11-22-2021 14:45-0400 Diastolic blood pressure 76 mm[Hg] Dr. Doyle Swenson Work Phone: [facility] Work Phone: 11-22-2021 14:45-0400 Heart rate 71 /min Dr. Doyle Swenson Work Phone: [facility] Work Phone: 11-22-2021 14:45-0400 SaO2% (BldA) [Mass fraction] 94 % Dr. Doyle Swenson Work Phone: [facility] Work Phone: 11-22-2021 14:45-0400 Systolic blood pressure 148 mm[Hg] Dr. Doyle Swenson Work Phone: [facility] Work Phone: 10-04-2021 12:50-0400 Body mass index (BMI) [Ratio] 33.6 kg/m2 Dr. Doyle Swenson Work Phone: [facility] Work Phone: 10-04-2021 12:50-0400 Body weight 80.[address] Doyle Swenson Work Phone: [facility] Work Phone: 10-04-2021 12:50-0400 Diastolic blood pressure 78 mm[Hg] Dr. Doyle Swenson Work Phone: [facility] Work Phone: 10-04-2021 12:50-0400 Heart rate 69 /min Dr. Doyle Swenson Work Phone: [facility] Work Phone: 10-04-2021 12:50-0400 SaO2% (BldA) [Mass fraction] 97 % Dr. Doyle Swenson Work Phone: [facility] Work Phone: 10-04-2021 12:50-0400 Systolic blood pressure 156 mm[Hg] Dr. Doyle Swenson Work Phone: [facility] Work Phone: 07-25-2021 14:30-0400 Body temperature 98.4 [degF] Dr. Doyle Swenson Work Phone: [facility] Work Phone: 07-25-2021 14:30-0400 Diastolic blood pressure 38 mm[Hg] Dr. Doyle Swenson Work Phone: [facility] Work Phone: 07-25-2021 14:30-0400 Heart rate 67 /min Dr. Doyle Swenson Work Phone: [facility] Work Phone: 07-25-2021 14:30-0400 Respiratory rate 16 /min Dr. Doyle Swenson Work Phone: [facility] Work Phone: 07-25-2021 14:30-0400 SaO2% (BldA) [Mass fraction] 92 % Dr. Doyle Swenson Work Phone: [facility] Work Phone: 07-25-2021 14:30-0400 Systolic blood pressure 112 mm[Hg] Dr. Doyle Swenson Work Phone: [facility] Work Phone: 07-25-2021 12:07-0400 Body height 154.[address] Doyle Swenson Work Phone: [facility] Work Phone: 07-25-2021 12:07-0400 Body weight 79.[address] Doyle Swenson Work Phone: [facility] Work Phone: 07-24-2021 08:49-0400 Body mass index (BMI) [Ratio] 33.1 kg/m2 Dr. Doyle Swenson Work Phone: [facility] Work Phone: 05-01-2021 11:26-0500 Body mass index (BMI) [Ratio] 32.3 kg/m2 Dr. Doyle Swenson Work Phone: [facility] Work Phone: 05-01-2021 11:26-0500 Body weight 80.[address] Doyle Swenson Work Phone: [facility] Work Phone: 05-01-2021 11:26-0500 Diastolic blood pressure 73 mm[Hg] Dr. Doyle Swenson Work Phone: [facility] Work Phone: 05-01-2021 11:26-0500 Heart rate 68 /min Dr. Doyle Swenson Work Phone: [facility] Work Phone: 05-01-2021 11:26-0500 Respiratory rate 161 /min Dr. Doyle Swenson Work Phone: [facility] Work Phone: 05-01-2021 11:26-0500 SaO2% (BldA) [Mass fraction] 98 % Dr. Doyle Swenson Work Phone: [facility] Work Phone: 05-01-2021 11:26-0500 Systolic blood pressure 182 mm[Hg] Dr. Doyle Swenson Work Phone: [facility] Work Phone: 12-26-2016 09:43-0400 BMI (Body [...] Body Temperature 98.2 [degF] Yenny Cha RN [facility] Work Phone: Encounters Encounter Date Encounter Type Care Provider Facility Start: 03-22-2025 ambulatory Bridget Mejias lity:[facility] Start: 03-15-2025 End: 03-15-2025 ambulatory Bridget Swenson Facility:[facility] Start: 03-04-2025 ambulatory Bridget GUTIERREZ Facility:[facility] Start: 02-22-2025 End: 02-22-2025 ambulatory Bridget Swenson Facility:[facility] Start: 01-28-2025 ambulatory Bridget GUTIERREZ Facility:[facility] Start: 01-25-2025 End: 01-25-2025 ambulatory Bridget GUTIERREZ Facility:[facility] Start: 12-17-2024 End: 12-17-2024 Sho Andino [employer]-C -[facility] Work Phone: Start: 12-17-2024 End: 12-17-[address] Bridget Swenson MD Work Phone: -[facility] Start: 11-19-2024 End: 11-19-[address] Bridget Swenson MD Work Phone: -Laboratory Start: 11-19-2024 End: 11-19-2024 Sho Andino [employer]-C -Laboratory Work Phone: Start: 11-19-2024 End: 11-19-2024 Sho Andino [employer]-C -[facility] Work Phone: Start: 11-19-2024 End: 11-19-[address] Brdiget Swenson MD Work Phone: -[facility] Start: 11-19-2024 End: 11-19-2024 ambulatory Sho Andino Facility:[facility] Start: 11-17-2024 End: 11-17-2024 Dr. Bridget Swenson MD Work Phone: -Emergency Department Work Phone: Start: 11-17-2024 End: 11-17-2024 Emergency department patient visit Dr. Bridget Swenson MD Work Phone: -Emergency Department Start: 10-12-2024 End: 10-13-2024 Emergency department patient visit Nichole Guerra DO Work Phone: [facility] Comment on above: Altered mental statu s, unspecified altered mental status type (Primary Dx); UTI (urinary tract infection), bacterial Start: 10-09-2024 Dr. Santino Haas [facility] Work Phone: Start: 10-08-2024 Dr. Santino Haas [facility] Work Phone: Start: 10-07-2024 Dr. Santino Haas [facility] Work Phone: Start: 10-06-2024 ambulatory Juan José Zhaoi ty:[facility] Start: 10-06-2024 End: 10-09-2024 Evaluation and management of inpatient Dr. Bridget Swenson MD Work Phone: [facility] Work Phone: Start: 10-06-2024 End: 10-09[facility]2024 [facility] Start: 10-05-2024 Dr. Santino Haas [facility] Work Phone: Start: 10-04-2024 Dr. Santino Haas [facility] Work Phone: Start: 10-04-2024 ambulatory Juan José Abel ty:[facility] Start: 10-04-[address] Bridget Swenson MD Work Phone: [facility] Work Phone: Start: 10-04-2024 Dr. [facility] Work Phone: Start: 10-01-2024 End: 10-01-2024 Dr. Bridget Swenson MD Work Phone: -Emergency Department Work Phone: Start: 10-01-2024 End: 10-01-2024 Emergency department patient visit Ayza Hinton Facility:[facility] Start: 09-07-2024 End: 09-07-[address] Bridget Swenson MD Work Phone: [facility] Work Phone: Start: 09-07-2024 End: 09-07-2024 Dr. Zackary Lyon MD [facility] Work Phone: Start: 09-06-2024 End: 09-06-[address] Bridget Swenson MD Work Phone: [facility] Work Phone: Start: 09-06-2024 End: 09-06-2024 Zackary Lyon MD [facility] Start: 09-06-2024 End: 09-06-2024 ambulatory Bridget Swenson Facility:[facility] Start: 09-03-2024 Dr. Charles Sullivan MD -[facility] Work Phone: Start: 09-02-2024 Dr. Charles Sullivan MD -[facility] Work Phone: Start: 09-01-2024 End: 09-03-2024 ambulatory Juan José Suarez Facility:[facility] Start: 09-01-2024 End: 09-03-2024 Dr. Charles Sullivan MD -[facility] Work Phone: Start: 08-31-2024 Dr. Charles Sullivan MD -[facility] Work Phone: Start: 08-30-2024 ambulatory Bridget Swenson Faci lity:[facility] Start: 08-30-2024 Dr. Evin Mora MD -[facility] Start: 08-30-2024 End: 08-31-2024 ambulatory [place] Facility:[facility] Start: 08-30-[address] Bridget Swenson MD Work Phone: [facility] Work Phone: Start: 08-30-2024 End: 08-31-2024 Dr. Layla Craig MD -[facility] Work Phone: Start: 07-26-2024 End: 07-26-2024 Tarik Sen NP-C -[facility] Work Phone: Start: 07-26-2024 End: 07-26-2024 ambulatory Bridget Swenson Facility:[facility] Start: 06-30-2024 End: 07-26-2024 Evaluation and management of inpatient Dr. Bridget Swenson MD Work Phone: [facility] Work Phone: Start: 06-30-2024 End: 07-26-2024 Dr. Aleks Marshall MD -Transitional Care [facility] nit Start: 06-30-2024 ambulatory Bridget Swenson Faci lity:[facility] Start: 06-26-2024 End: 06-30-2024 Evaluation and management of inpatient BRIDGET SWENSON Facility:[facility] Start: 06-26-2024 End: 06-26-2024 Dr[facility] Start: 06-26-2024 End: 06-26-2024 Emergency department patient visit Bridget Swenson Facility:[facility] Start: 06-21-2024 End: 06-21-2024 Dr. Bridget Swenson MD -Laboratory, [facility] Start: 06-21-2024 End: 06-21-2024 ambulatory Bridget Swenson Facility:[facility] Start: 06-15-2024 End: 06-15-2024 Patient encounter procedure Jessa Retana APRN.HUMAN RESOURCES BENEFITS MANAGER Work Phone: Cerebrovascular Comment on above: Intracranial hemorrh age (HCC) (Primary Dx); Cerebral amyloid angiopathy (CODE); SAH (subarachnoid hemorrhage) (HCC); PAF (paroxysmal atrial fibrillation) (HCC); Primary hypertension Start: 06-15-2024 End: 06-15-2024 ambulatory JESSA RETANA Facility:[facility] Start: 06-14-2024 End: 06-14-2024 Dr. Aleks Marshall MD -Cat Scan, [facility] Work Phone: Start: 06-14-2024 End: 06-14-2024 ambulatory Aleks Brett Marshall Facility:[facility] Start: 06-03-2024 End: 06-03-2024 Dr. Aleks Marshall MD -Cat Scan, [facility] Work Phone: Start: 06-03-2024 End: 06-03-2024 ambulatory Aleks Chi Rolando Facility:[facility] Start: 06-02-2024 End: 06-02-2024 Telephone encounter Jessa Retana APRN.HUMAN RESOURCES BENEFITS MANAGER Work Phone: Cerebrovascular Comment on above: Opened In Error Start: 05-31-2024 ambulatory Aleks Chi Rolando Facility:[facility] Start: 05-31-2024 Dr. Joyce Rousseau [facility] Work Phone: Start: 05-31-2024 End: 05-31-2024 Dr. Aleks Marshall MD -Cardiovascular Serv ices Work Phone: Start: 05-31-2024 End: 05-31-2024 ambulatory Aleks Chi Rolando Facility:[facility] Start: 05-30-2024 End: 06-15-2024 Evaluation and management of inpatient Aleks Brett Marshall Facility:[facility] Start: 05-30-2024 End: 06-15-2024 Dr. Aleks Marshall MD -Transitional Care [facility] nit Start: 05-28-2024 Dr. Joyce Rousseau [facility] Work Phone: Start: 05-27-2024 Dr. Joyce Rousseau [facility] Work Phone: Start: 05-25-2024 Dr. Joyce Rousseau [facility] Work Phone: Start: 05-24-2024 Dr. Joyce Rousseau [facility] Work Phone: Start: 05-21-2024 Dr. Joyce Rousseau [facility] Work Phone: Start: 05-20-2024 Dr. Joyce Rousseau [facility] Work Phone: Start: 05-19-2024 End: 05-19-2024 ambulatory Cari Wong MD, PhD Work Phone: Endovascular Center Comment on above: nsgy DIA-family nsgy DIA Start: 05-19-2024 Dr. Joyce Rousseau [facility] Work Phone: Start: 05-18-2024 Dr. Joyce Rousseau [facility] Work Phone: Start: 05-16-2024 ambulatory [facility] Facility:[facility] Start: 05-16-2024 End: 05-30-2024 Evaluation and management of inpatient [facility] Facility:[facility] Start: 05-16-2024 End: 05-30-2024 Dr. Joyce Rousseau DO -Rehab Unit Work Phone: Start: 05-14-2024 End: 05-14-2024 Patient encounter procedure Ip Transesophageal Echo Cardiology Comment on above: Essential (primary) hypertension (Primary Dx) PAF (paroxysmal atri al fibrillation) (HCC) (Primary Dx) Start: 05-14-2024 End: 05-14-2024 ambulatory [facility] Facility:[facility] Start: 05-13-2024 End: 05-13-2024 Orders Only Faby Orozco APRN.HUMAN RESOURCES BENEFITS MANAGER Work Phone: Endovascular Center Comment on above: SAH (subarachnoid he morrhage) (HCC) (Primary Dx) Start: 05-11-2024 Evaluation and management of inpatient [facility] Facility:[facility] Start: 05-11-2024 End: 05-11-2024 ambulatory Norma Moon APRN.HUMAN RESOURCES BENEFITS MANAGER Work Phone: Critical Care Start: 05-11-2024 End: 05-11-2024 Dr. Tylor Hendrickson DO -Emergency Departme nt Work Phone: Start: 05-11-2024 End: 05-11-2024 Emergency department patient visit Tylor Hendrickson Facility:[facility] Start: 04-14-2024 End: 04-14-2024 Dr. Bridget Swenson MD -[facility] Start: 04-14-2024 End: 04-14-2024 ambulatory Bridget Swenson Facility:[facility] Start: 04-01-2024 ambulatory Vinayak Reganallison [place] [facility] [place] Start: 04-01-2024 End: 04-01-2024 Dr. Tylor Fang MD -[facility] Start: 04-01-2024 End: 04-01-2024 ambulatory [facility] Facility:[facility] Start: 09-09-2023 Non-patient / Non-visit Dr. Bridget Swenson Work Phone: [facility] Start: 09-09-2023 End: 09-09-[address] Bridget Swenson Work Phone: [facility] Work Phone: Start: 09-09-2023 End: 09-09-[address] Br[facility] Work Phone: Start: 08-27-2023 End: 08-27-2023 ambulatory [facility] Work Phone: Start: 08-27-2023 End: 08-27-2023 Patient encounter procedure [facility] Work Phone: Start: 08-11-2023 End: 08-11-2023 ambulatory [facility] Work Phone: Start: 08-11-2023 End: 08-11-2023 Patient encounter procedure [facility] Work Phone: Start: 08-08-2023 End: 08-08-2023 ambulatory [facility] Work Phone: Start: 08-08-2023 End: 08-08-2023 Patient encounter procedure [facility] Work Phone: Start: 08-06-2023 End: 08-06-2023 ambulatory [facility] Work Phone: Start: 08-06-2023 End: 08-06-2023 Patient encounter procedure [facility] Work Phone: Start: 06-09-2023 End: 06-09-2023 ambulatory [facility] Work Phone: Start: 06-09-2023 End: 06-09-2023 Patient encounter procedure [facility] Start: 05-12-2023 End: 05-12-2023 Emergency department patient visit Dr. Doyle Swenson [facility] Work [facility]: Start: 04-08-2023 End: 04-08-[address] Doyle Swenson Work Phone: [facility] Work Phone: Start: 04-08-2023 End: 04-08-[address] Doyle Swenson Work Phone: [facility] Work Phone: Start: 02-25-2023 End: 02-25-[address] Doyle Swenson Work Phone: [facility] Work Phone: Start: 02-25-2023 End: 02-25-[address] Doyle Swenson Work Phone: [facility] Work Phone: Start: 01-28-2023 End: 01-28-[address] Doyle Swenson Work Phone: [facility] Work Phone: Start: 01-16-2023 Non-patient / Non-visit Dr. Doyle Swenson Work Phone: [facility] Start: 01-16-2023 End: 01-16-[address] Doyle Swenson Work Phone: [facility] Work Phone: Start: 01-16-2023 End: 01-16-[address] Doyle Swenson [facility] Work Phone: Start: 01-14-2023 End: 01-14-[address] Doyle Swenson Work Phone: [facility] Work Phone: Start: 01-14-2023 End: 01-14-[address] Doyle Swenson Work Phone: [facility] Work Phone: Start: 12-18-2022 End: 12-18-2022 ambulatory [facility] Work Phone: Start: 12-18-2022 End: 12-18-2022 Patient encounter procedure [facility] Start: 11-21-2022 End: 11-21-2022 Patient encounter procedure [facility] Work Phone: Start: 11-06-2022 End: 11-06-2022 ambulatory [facility] Work Phone: Start: 11-06-2022 End: 11-06-2022 Patient encounter procedure [facility] Start: 10-02-2022 End: 10-02-2022 ambulatory [facility] Work Phone: Start: 10-02-2022 End: 10-02-2022 Patient encounter procedure [facility] Start: 08-26-2022 End: 08-26-[address] Doyle Swenson Work Phone: [facility] Work Phone: Start: 08-26-2022 End: 08-26-[address] Doyle Swenson Work Phone: [facility] Start: 06-18-2022 End: 06-18-[address] Doyle Swenson Work Phone: [facility]-Outpatient Bone Densitometry Start: 05-20-2022 End: 05-20-[address] Doyle Swenson Work Phone: [facility] Work Phone: Start: 05-20-2022 End: 05-20-[address] Doyle Swenson Work Phone: [facility] Start: 05-20-2022 End: 05-20-2022 Dr. Doyle Swenson Work Phone: [facility] Start: 05-18-2022 End: 05-18-2022 Emergency department patient visit Dr. Doyle Swenson Work Phone: [facility]-Emergency Department Start: 05-18-2022 End: 05-18-2022 Dr. Doyle Swenson Work Phone: [facility]-Emergency Department Start: 05-14-[address] Leydi Swenson Work Phone: [facility] Start: 05-14-2022 Dr. Doyle Swenson Work Phone: [facility] Start: 05-08-2022 End: 05-08-[address] Doyle Swenson Work Phone: [facility] Start: 05-08-2022 End: 05-08-2022 Dr. Doyle Swenson Work Phone: [facility] Start: 04-29-[address] Leydi Swenson Work Phone: [facility] Start: 04-29-2022 Dr. Doyle Swenson Work Phone: [facility] Start: 04-22-2022 End: 04-22-[address] Doyle Swenson Work Phone: [facility] Work Phone: Start: 04-22-2022 End: 04-22-[address] Doyle Swenson Work Phone: [facility] Start: 04-22-2022 End: 04-22-2022 Dr. Doyle Swenson Work Phone: [facility] Start: 04-19-2022 End: 04-19-[address] Doyle Swenson Work Phone: [facility] Start: 04-19-2022 End: 04-19-2022 Dr. Doyle Swenson Work Phone: [facility] Start: 04-18-2022 Non-patient / Non-visit Dr. Doyle Swenson Work Phone: [facility] Start: 04-18-2022 Dr. Doyle Swenson Work Phone: [facility] Start: 04-17-2022 Non-patient / Non-visit Dr. Doyle Swenson Work Phone: [facility] Start: 04-17-2022 Dr. Doyle Swenson Work Phone: [facility] Start: 04-16-2022 Non-patient / Non-visit Dr. Doyle Swenson Work Phone: [facility] Start: 04-16-2022 Dr. Doyle Swenson Work Phone: [facility] Start: 04-15-2022 Non-patient / Non-visit Dr. Doyle Swenson Work Phone: [facility] Start: 04-15-2022 Dr. Doyle Swenson Work Phone: [facility] Start: 04-14-2022 Non-patient / Non-visit Dr. Doyle Swenson Work Phone: [facility] Start: 04-14-2022 Dr. Doyle Swenson Work Phone: [facility] Start: 04-13-2022 Non-patient / Non-visit Dr. Doyle Swenson Work Phone: [facility] Start: 04-13-2022 Dr. Doyle Swenson Work Phone: [facility] Start: 04-12-2022 Non-patient / Non-visit Dr. Doyle Swenson Work Phone: [facility] Start: 04-12-2022 Dr. Doyle Swenson Work Phone: [facility] Start: 04-11-2022 Non-patient / Non-visit Dr. Doyle Swenson Work Phone: [facility] Start: 04-11-2022 Dr. Doyle Swenson Work Phone: [facility] Start: 04-10-2022 Non-patient / Non-visit Dr. Doyle Swenson Work Phone: [facility] Start: 04-10-2022 End: 04-18-2022 Evaluation and management of inpatient [facility]. [facility] Start: 04-10-2022 End: 04-18-[address] Doyle Swenson Work Phone: [facility] Work Phone: Start: 04-10-2022 End: 04-18-2022 Dr. Doyle Swenson [facility] Start: 04-08-2022 End: 04-08-[address] Doyle Swenson Work Phone: [facility] Work Phone: Start: 04-08-2022 End: 04-08-[address] Doyle Swenson Work Phone: [facility] Start: 04-08-2022 End: 04-08-2022 Dr. Doyle Swenson Work Phone: [facility] Start: 02-18-2022 Non-patient / Non-visit Dr. Doyle Swenson Work Phone: [facility] Start: 02-18-2022 End: 02-18-[address] Doyle Swenson Work Phone: [facility]-Cardiovascular Services Start: 02-18-2022 End: 02-18-2022 Dr. Doyle Swenson Work Phone: [facility] Start: 02-16-2022 End: 03-18-2022 Evaluation and management of inpatient Dr. Doyle Swenson [facility] Start: 02-16-2022 End: 03-18-2022 Dr. Doyle Swenson Work Phone: [facility]Transitional Care Unit Start: 02-15-2022 End: 02-15-[address] Doyle Swenson Work Phone: [facility] Work Phone: Start: 02-15-2022 End: 02-15-[address] Doyle Swenson Work Phone: [facility]-Laboratory, Specimen Start: 02-15-2022 End: 02-15-2022 Dr. Doyle Swenson Work Phone: [facility]-Laboratory, Specimen Start: 02-11-2022 End: 02-14-2022 Evaluation and management of inpatient Dr. Doyle Swenson [facility] Start: 02-11-2022 End: 02-14-2022 Dr. Doyle Swenson [facility] Start: 02-11-2022 Non-patient / Non-visit Dr. Doyle Swenson Work Phone: [facility] Start: 02-11-2022 Dr. Doyle Swenson Work Phone: [facility] Start: 02-10-2022 Non-patient / Non-visit Dr. Doyle Swenson Work Phone: [facility] Start: 02-10-2022 End: 02-11-2022 Evaluation and management of inpatient Dr. Doyle Swenson Work Phone: [facility] Start: 02-10-2022 End: 02-11-2022 Dr. Doyle Swenson Work Phone: [facility] Start: 02-09-2022 Non-patient / Non-visit Dr. Doyle Swenson Work Phone: [facility] Start: 02-09-2022 Dr. Doyle Swenson Work Phone: [facility] Start: 02-09-2022 Evaluation and management of inpatient Dr. Doyle Swenson [facility] Start: 02-09-[address] Doyle Swenson Work Phone: [facility] Work Phone: Start: 02-04-2022 End: 02-04-[address] Doyle Swenson Work Phone: [facility] Work Phone: Start: 02-04-2022 End: 02-04-[address] Doyle Swenson Work Phone: [facility] Start: 02-04-2022 End: 02-04-2022 Dr. Doyle Swenson Work Phone: [facility] Start: 01-01-2022 End: 01-01-[address] Doyle Swenson Work Phone: [facility] Start: 12-20-2021 End: 12-20-[address] Doyle Swenson Work Phone: [facility] Work Phone: Start: 12-20-2021 End: 12-20-[address] Doyle Swenson Work Phone: [facility] Start: 12-18-2021 End: 12-18-[address] Doyle Swenson Work Phone: [facility] Start: 11-22-2021 End: 11-22-[address] Doyle Swenson Work Phone: [facility] Start: 10-29-2021 End: 10-29-[address] Doyle Swenson Work Phone: [facility] Start: 10-04-2021 End: 10-04-[address] Doyle Swenson Work Phone: [facility] Start: 09-27-2021 End: 09-27-[address] [facility] Sw[facility] Start: 08-14-2021 End: 08-14-[address] Doyle Sw[facility] Start: 07-27-2021 End: 07-27-[address] Doyle Swenson Work Phone: [facility] Start: 07-25-2021 Non-patient / Non-visit Dr. Doyle Swenson Work Phone: [facility] Start: 07-24-2021 Non-patient / Non-visit Dr. Doyle Swenson Work Phone: [facility] Start: 07-24-2021 Non-patient / Non-visit Dr. Doyle Swenson Work Phone: [facility] Start: 07-24-2021 End: 07-25-2021 Evaluation and management of inpatient Dr. Doyle Swenson Work Phone: [facility]-Medical Surgical 3 Start: 06-19-2021 End: 06-19-[address] Doyle Swenson Work Phone: [facility] Start: 05-09-2021 End: 05-09-[address] Doyle Sw[facility] Start: 05-07-[address] Doyle Swenson Work Phone: [facility] Start: 05-01-2021 End: 05-01-[address] Doyle Swenson Work Phone: [facility] Start: 04-23-[address] Doyle Swenson Work Phone: [facility] Procedures Date Procedure Procedure Detail Performing Clinician [...] Phone: Start: 10-12-2024 Comprehensive metabolic panel Nichole Ridley ft DO Work Phone: Start: 10-12-2024 Urinalysis microscopic panel - Urine Qualitative by Automated Nichole Guerra DO Work Phone: Start: 10-12-2024 Urnls dip stick/tablet reagent auto microscopy Nichole Franco Guerra DO Work Phone: Start: 10-12-2024 Radiologic exam chest single view Nichole Guerra DO Work Phone: Start: 10-12-2024 Thyrotropin [...] 10-04-2024 MRI of brain without contrast Dr. Leydi Swenson MD Work Phone: Start: 10-03-2024 Plain x-ray of pelvis and lower extremity Dr. Bridget Swenson MD Work Phone: Start: 10-03-2024 Benzodiazepine measurement, urine Dr. Zack Swenson MD Work Phone: Start: 10-03-2024 Cocaine measurement, urine Dr. Ric Swenson MD Work Phone: Start: 10-03-2024 Methadone measurement, urine Dr. Marcos Swenson MD Work Phone: Start: 10-03-[address] Leydi Swenson MD Work Phone: Start: 10-03-2024 Urine [...] Phone: Start: 08-31-[address] Leydi Swenson MD Work Phone: Start: 08-31-2024 Urine microscopy: red cells Dr. Hermann Swenson MD Work Phone: Start: 08-31-[address] Bridget Swenson MD Work Phone: Start: 08-31-2024 Urnls dip stick/tablet reagent auto microscopy Dr. Bridget Swenson MD Work Phone: Start: 08-31-2024 MRI of brain without contrast Dr. Leydi Swenson MD Work Phone: Start: 08-31-2024 Blood [...] Start: 07-22-2024 Measurement of renal function Dr. Leydi Swenson MD Work Phone: Start: 07-22-2024 Nucleated [...] Comment: Specimen Type: BLOOD SPEC IMENOrdering Facility: [facility] Address: [address] [place] [address] Performed By: #### T SCR ####[facility] BLOOD BANKCLIA [id number] [place] [address] [place] Start: 06-26-2024 Plain [...] Start: 06-26-2024 Measurement of renal function Dr. Leydi Swenson MD Work Phone: Start: 06-26-2024 Nucleated [...] Start: 06-21-2024 Measurement of renal function Dr. Leydi Swenson MD Work Phone: Start: 06-21-2024 Platelet [...] Start: 06-14-2024 Measurement of renal function Dr. Leydi Swenson MD Work Phone: Start: 06-14-2024 Nucleated red blood cell count procedure Dr. Bridget Swenson MD Work Phone: Start: 06-14-2024 Platelet mean volume determination Dr. Jing Swenson MD Work Phone: Start: 06-07-2024 Assay of phosphorus inorganic Dr. Leydi Swenson MD Work Phone: Start: 05-19-2024 Measurement of occult blood in stool specimen using immunoassay Dr. Bridget Swenson MD Work Phone: Start: 05-17-[address] Bridget Swenson MD Work Phone: Start: 05-16-2024 CT of head without contrast Dr. Hermann Swenson MD Work Phone: Start: 05-11-2024 Antibody screen DUGLAS JULIO Comment on above: Order Comment: Specimen Type: BLOOD SPEC IMENOrdering Facility: [facility] Address: [address] [place] [address] Performed By: #### T SCR ####[facility] BLOOD BANKCLIA [id number] [facility] [id number] [place] [address] Start: 05-11-2024 CT of head without contrast [...] months Jatin Zimmerman Start: 03-14-2016 End: 03-14-2016 MMM Evin Mora MD Start: 03-14-2016 End: 03-14-2016 Thyrotropin [Units/volume] in Serum or Plasma Evin Mora MD Start: 09-06-2015 End: 09-06-2015 TIMBER SIZER Yenny Buckley PA-C Work Phone: Start: 09-06-2015 [...] PA-C Work Phone: Start: 08-11-2014 End: 08-11-2014 TIMBER SIZER Yenny Buckley PA-C Work Phone: Start: 08-11-2014 [...] months Jatin Zimmerman Start: 03-17-2014 End: 03-17-2014 MM Evin Mora MD Start: 11-17-2013 End: 11-17-2013 TIMBER SIZER Yenny Buckley PA-C Work Phone: Start: 11-17-2013 End: 11-17-2013 Follow Up Appt 4 months Yenny Buckley PA-C Work Phone: Start: 11-17-2013 End: 11-23-2013 INR in Platelet poor plasma by Coagulation assay Yenny Buckley PA-C Work Phone: Start: 08-18-2013 End: 08-20-2013 24 hour holter monitor Evin Mora MD Start: 08-18-2013 End: 08-18-2013 Follow Up Appt 3 months Jatin Zimmerman Start: 08-18-2013 End: 08-18-2013 MMM Evin Mora MD Measurement of occul t blood [...] Author Start: 06-29-2027 Diabetes Screening Diabetes Screening [facility] Start: 06-25-2027 Urine microalbumin profile DTaP,Tdap,Td Vaccine (2 - Td or Tdap) [facility] Start: 05-13-2027 Diabetes Screening Diabetes Screening [facility] Start: 05-11-2027 Diabetes Screening Diabetes Screening [facility] Start: 10-12-2025 Thyroid stimulating hormone measurement TSH Level [facility] Start: 01-10-2025 Influenza vaccination Influenza Vaccine (Season Ended) [facility] Start: 11-17-2024 [facility] Start: 11-17-2024 [facility] Start: 10-09-2024 Patient discharge [facility] Start: 10-06-2024 Admission procedure [facility] Start: 10-05-2024 Speech therapy assessment [facility] Start: 10-04-2024 [facility] Start: 10-04-2024 Application of intermittent pneumatic compression device [facility] [facility] Start: 10-04-2024 Following clinical pathway protocol [facility] Start: 10-04-2024 Assessment of risk of venous thromboembolism [facility] Start: 10-04-2024 Documentation procedure [facility] Start: 10-04-2024 Insertion of catheter into peripheral vein [facility] Start: 10-04-2024 Measuring intake and output [facility] Start: 10-04-2024 Providing care according to standard [facility] Start: 10-04-2024 Provision of activity privileges [facility] Start: 10-04-2024 Referral to occupational therapist [facility] Start: 10-04-2024 Referral to service [facility] Start: 10-04-2024 [facility] Start: 10-04-2024 Continuous positive airway pressure ventilation treatment [facility] Start: 10-04-2024 MRI of brain without contrast [facility] Start: 10-04-2024 Verification routine [facility] Start: 10-04-2024 Admission procedure [facility] Start: 10-04-2024 Hospital admission, emergency, from emergency room, medical nature [facility] Start: 10-04-2024 Patient referral to dietitian [facility] Start: 10-03-2024 [facility] Start: 10-03-2024 End: 10-03-2024 [facility] Start: 10-03-2024 Consultation [facility] Start: 10-01-2024 [facility] Start: 10-01-2024 Urine culture [facility] Start: 09-20-2024 End: 09-20-2024 Patient encounter procedure 09/20/2024 8:00 AM EDT Office Visit Neurology [address] [place] [id number] Wally Quesada Jr., MD [address] [place] [address] Restless Leg Syndrome Neurology Comment on above: Restless Leg Syndrome Start: 09-03-2024 Patient discharge [facility] Start: 09-02-2024 Application of intermittent pneumatic compression device [facility] Start: 09-02-2024 Speech therapy assessment [facility] Start: 09-01-2024 Referral to occupational therapist [facility] Start: 09-01-2024 Referral to service [facility] Start: 09-01-2024 Following clinical pathway protocol [facility] Start: 09-01-2024 Continuous positive airway pressure ventilation treatment [facility] Start: 09-01-2024 Admission procedure [facility] Start: 09-01-2024 Consultation [facility] Start: 09-01-2024 [facility] Start: 08-31-2024 Patient discharge [facility] Start: 08-31-2024 Referral to service [facility] Start: 08-30-2024 Dual pressure spontaneous ventilation support [facility] Start: 08-30-2024 Application of intermittent pneumatic compression device [facility] Start: 08-30-2024 Continuous pulse oximetry [facility] Start: 08-30-2024 Following clinical pathway protocol [facility] Start: 08-30-2024 Aspiration precautions [facility] Start: 08-30-2024 Assessment of risk of venous thromboembolism [facility] Start: 08-30-2024 Cardiac monitoring [facility] Start: 08-30-2024 Catheterization of vein [facility] Start: 08-30-2024 Consultation [facility] Start: 08-30-2024 Elevation of head of bed [facility] Start: 08-30-2024 Exercises [facility] Start: 08-30-2024 Insertion of catheter into peripheral vein [facility] Start: 08-30-2024 Measuring intake and output [facility] Start: 08-30-2024 Notification of physician [facility] Start: 08-30-2024 Oxygen therapy [facility] Start: 08-30-2024 Patient referral to [facility] Start: 08-30-2024 Providing care according to standard [facility] Start: 08-30-2024 Provision of activity privileges [facility] Start: 08-30-2024 Referral to occupational therapist [facility] Start: 08-30-2024 Referral to service [facility] Start: 08-30-2024 Speech therapy assessment [facility] Start: 08-30-2024 Telemedicine consultation with patient [facility] Start: 08-30-2024 Tobacco use cessation education [facility] Start: 08-30-2024 Vital signs measurements [facility] Start: 08-30-2024 Admission procedure [facility] Start: 08-30-2024 End: 08-30-2024 [facility] Start: 08-30-2024 Hospital admission, emergency, from emergency room, medical nature [facility] Start: 08-30-2024 [facility] Start: 08-30-2024 Oxygen therapy [facility] Start: 08-30-2024 [facility] Start: 08-30-2024 Patient referral to dietitian [facility] Start: 08-16-2024 End: 08-16-2024 Patient encounter procedure 08/16/2024 11:00 AM EDT Office Visit Cerebrovascular [address] [place] [id number] Jessa Retana APRN.HUMAN RESOURCES BENEFITS MANAGER [address] [place] [address] 3 month follow up Cerebrovascular Comment on above: 3 month follow up Start: 07-27-2024 End: 07-27-2024 Patient encounter procedure 07/27/2024 11:00 AM EDT Office Visit Cardiology [address] [place] [address] Toyin Del Castillo MD [address] [place] [address] Evaluation for watchmann device with hx of pAF Cardiology Comment on above: Evaluation for watchmann device with hx of pAF Start: 07-27-2024 End: 07-27-2024 ambulatory 07/27/2024 10:30 AM EDT Results Only Cardiology [address] [place] [address] Evaluation for watchmann device with hx of pAF Cardiology Comment on above: Evaluation for watchmann device with hx of pAF Start: 07-26-2024 Development of care plan [facility] Start: 07-26-2024 Application of elastic bandage [facility] Start: 07-26-2024 Patient discharge [facility] Start: 07-20-2024 Referral to service [facility] Start: 07-20-2024 [facility] Start: 07-09-2024 [facility] Start: 07-06-2024 Palliative care [facility] Start: 07-05-2024 Application of ice collar, cap or bag [facility] Start: 07-01-2024 Speech therapy assessment [facility] Start: 07-01-2024 Development of care plan [facility] Start: 07-01-2024 Developing a treatment plan [facility] Start: 07-01-2024 Application of intermittent pneumatic compression device [facility] Start: 07-01-2024 Provision of activity privileges [facility] Start: 07-01-2024 End: 07-01-2024 [facility] Start: 06-30-2024 Admission procedure [facility] Start: 06-30-2024 Measuring intake and output [facility] Start: 06-30-2024 Patient referral to dietitian [facility] Start: 06-30-2024 Referral to occupational therapist [facility] Start: 06-30-2024 Referral to service [facility] Start: 06-30-2024 Vital signs measurements [facility] Start: 06-30-2024 [facility] Start: 06-26-2024 End: 06-26-2024 [facility] Start: 06-26-2024 End: 06-26-2024 [facility] Start: 06-15-2024 End: 06-15-2024 Patient encounter procedure 06/15/2024 11:00 AM EST Office Visit Cerebrovascular [address] [place] [address] Jessa Retana APRN.HUM[employer] RESOURCES BENEFITS MANAGER [address] [place] [id number] 30 day hospital discharge SDH/for stroke and nsgy f/up-per [facility] Cerebro[facility] Comment on above: 30 day hospital discharge SDH/for stroke and nsgy f/up-per [facility]iana Start: 06-15-2024 Patient discharge [facility] Start: 06-14-2024 End: 06-14-2024 Patient encounter procedure Cat Scan Comment on above: SAH (subarachnoid hemorrhage) (HCC) [I60 .9] 30 day hospital disc harge f/u per tanvi bonilla 05/14/24 Start: 06-14-2024 Development of care plan [facility] Start: 06-13-2024 End: 06-12-2025 CT Head WO contrast CT [facility]RAIN [facility] Radiology Routine SAH (subarachnoid hemorrhage) (HCC) Expected: 06/13/2024, Expires: 06/12/2025 [facility] Work Phone: Comment on above: Expected: 06/13/2024, Expires: Start: 06-08-2024 Referral to service [facility] Start: 06-04-2024 [facility] Start: 06-02-2024 [facility] Start: 06-02-2024 [facility] Start: 06-01-2024 Application of elastic bandage [facility] Start: 05-31-2024 Development of care plan [facility] Start: 05-31-2024 Developing a treatment plan [facility] Start: 05-30-2024 Admission procedure [facility] Start: 05-30-2024 Introduction of urinary catheter [facility] Start: 05-30-2024 Measuring intake and output [facility] Start: 05-30-2024 Patient referral to dietitian [facility] Start: 05-30-2024 Referral to occupational therapist [facility] Start: 05-30-2024 Referral to service [facility] Start: 05-30-2024 Vital signs measurements [facility] Start: 05-30-2024 End: 05-30-2024 [facility] Start: 05-29-2024 Removal of urinary catheter [facility] Start: 05-28-2024 Patient discharge [facility] Start: 05-28-2024 Removal of urinary catheter [facility] Start: 05-25-2024 [facility] Start: 05-22-2024 Oxygen therapy [facility] Start: 05-22-2024 [facility] Start: 05-21-2024 [facility] Start: 05-19-2024 [facility] Start: 05-18-2024 Following clinical pathway protocol [facility] Start: 05-18-2024 Insertion of catheter into peripheral vein [facility] Start: 05-18-2024 [facility] Start: 05-16-2024 Application of intermittent pneumatic compression device [facility] Start: 05-16-2024 Recommendation to continue with treatment [facility] Start: 05-16-2024 Referral to service [facility] Start: 05-16-2024 Urinary bladder training [facility] Start: 05-16-2024 Admission procedure [facility] Start: 05-16-2024 Measuring intake and output [facility] Start: 05-16-2024 Patient referral to dietitian [facility] Start: 05-16-2024 Referral to occupational therapist [facility] Start: 05-16-2024 Vital signs measurements [facility] Start: 05-16-2024 [facility] Start: 05-16-2024 Speech therapy assessment [facility] Start: 05-14-2024 End: 05-14-2024 Patient encounter procedure 05/14/2024 4:00 PM EST Office Visit Cardiology [address] [place] [address] Essential (primary) hypertension (Primary Dx) Cardiology Comment on above: Essential (primary) hypertension (Primar y Dx) Start: 05-12-2024 Advance Directive Discussion Advance Directive Discussion [facility] Start: 05-11-2024 [facility] Start: 05-11-2024 Aspiration precautions [facility] Start: 01-11-2024 Covid-19 Vaccine ( season) Covid-19 Vaccine ( season) [facility] Start: 01-11-2024 Covid-19 Vaccine ( season) Covid-19 Vaccine ( season) [facility] Start: 01-11-2024 Influenza vaccination Influenza Vaccine (#1) [facility] Start: 05-12-2023 Advance Directive Discussion Advance Directive Discussion [facility] Start: 05-12-2023 [facility] Start: 04-18-2022 Patient discharge [facility] Start: 04-17-2022 [facility] Start: 04-15-2022 Incentive spirometry [facility] Start: 04-13-2022 Prothrombin time [facility] Work Phone: Start: 04-12-2022 Prothrombin time [facility] Work Phone: Start: 04-11-2022 Consultation for pain [facility] Start: 04-10-2022 Assessment of risk of venous thromboembolism [facility] Start: 04-10-2022 Consultation [facility] Work Phone: Start: 04-10-2022 Insertion of catheter into peripheral vein [facility] Start: 04-10-2022 Oxygen therapy [facility] Work Phone: Start: 04-10-2022 Providing care according to standard [facility] Start: 04-10-2022 Provision of activity privileges [facility] Start: 04-10-2022 Referral to occupational therapist [facility] Start: 04-10-2022 Referral to service [facility] Start: 04-10-2022 [facility] Start: 04-10-2022 Following clinical pathway protocol [facility] Start: 04-10-2022 Verification routine [facility] Work Phone: Start: 04-10-2022 Admission procedure [facility] Start: 04-10-2022 ANES NEUROMD/NTRVRT [facility] Start: 04-10-2022 Perq vert agmntj cavity crtj uni/bi cannulj [facility] Start: 03-24-2022 Blood chemistry [facility] Work Phone: Start: 03-21-2022 Prothrombin time [facility] Work Phone: Start: 03-18-2022 Prothrombin time [facility] Work Phone: Start: 03-18-2022 Patient discharge [facility] Start: 03-17-2022 Development of care plan [facility] Start: 03-17-2022 Blood chemistry [facility] Work Phone: Start: 03-15-2022 Developing a treatment plan [facility] Start: 03-14-2022 Prothrombin time [facility] Work Phone: Start: 03-13-2022 [facility] Start: 03-13-2022 Referral to service [facility] Start: 03-12-2022 [facility] Start: 03-12-2022 Blood chemistry [facility] Work Phone: Start: 03-11-2022 Prothrombin time [facility] Work Phone: Start: 03-10-2022 Blood chemistry [facility] Work Phone: Start: 03-07-2022 Prothrombin time [facility] Work Phone: Start: 03-05-2022 Blood chemistry [facility] Work Phone: Start: 03-04-2022 Prothrombin time [facility] Work Phone: Start: 03-03-2022 Blood chemistry [facility] Work Phone: Start: 02-28-2022 Prothrombin time [facility] Work Phone: Start: 02-27-2022 Speech therapy assessment [facility] Start: 02-26-2022 Blood chemistry [facility] Work Phone: Start: 02-25-2022 Prothrombin time [facility] Work Phone: Start: 02-24-2022 Blood chemistry [facility] Work Phone: Start: 02-21-2022 Prothrombin time [facility] Work Phone: Start: 02-19-2022 Verification routine [facility] Work Phone: Start: 02-19-2022 Blood chemistry [facility] Work Phone: Start: 02-18-2022 Prothrombin time [facility] Work Phone: Start: 02-17-2022 Developing a treatment plan [facility] Start: 02-17-2022 Development of care plan [facility] Start: 02-16-2022 End: 02-17-2022 [facility] Start: 02-16-2022 Wound care [facility] Work Phone: Start: 02-16-2022 Admission procedure [facility] Start: 02-16-2022 Measuring intake and output [facility] Start: 02-16-2022 Patient referral to dietitian [facility] Start: 02-16-2022 Referral to occupational therapist [facility] Start: 02-16-2022 Referral to service [facility] Start: 02-16-2022 Vital signs measurements [facility] Start: 02-14-2022 Patient discharge [facility] Start: 02-13-2022 Developing a treatment plan [facility] Start: 02-13-2022 [facility] Work Phone: Start: 02-12-2022 Development of care plan [facility] Start: 02-12-2022 Developing a treatment plan [facility] Start: 02-11-2022 Patient referral to [facility] Start: 02-11-2022 Following clinical pathway protocol [facility] Start: 02-11-2022 Admission procedure [facility] Start: 02-11-2022 Measuring intake and output [facility] Start: 02-11-2022 [facility] Start: 02-11-2022 Referral to occupational therapist [facility] Start: 02-11-2022 Referral to service [facility] Start: 02-11-2022 Vital signs measurements [facility] Start: 02-11-2022 End: 02-11-2022 [facility] Start: 02-11-2022 Patient discharge [facility] Start: 02-11-2022 Continuous positive airway pressure ventilation treatment [facility] Start: 02-10-2022 Admission procedure [facility] Start: 02-09-2022 Following clinical pathway protocol [facility] Start: 02-09-2022 Assessment of risk of venous thromboembolism [facility] Start: 02-09-2022 Insertion of catheter into peripheral vein [facility] Start: 02-09-2022 Oxygen therapy [facility] Start: 02-09-2022 Providing care according to standard [facility] Start: 02-09-2022 Provision of activity privileges [facility] Start: 02-09-2022 Referral to occupational therapist [facility] Start: 02-09-2022 Referral to service [facility] Start: 02-09-2022 [facility] Start: 02-09-2022 Verification routine [facility] Work Phone: Start: 02-09-2022 Admission procedure [facility] Start: 02-09-2022 [facility] Work Phone: Start: 07-25-2021 Patient discharge [facility] Work Phone: Start: 07-25-2021 Oxygen therapy [facility] Work Phone: Start: 07-24-2021 End: 07-25-2021 [facility] Work Phone: Start: 07-24-2021 Ambulation without limitation [facility] Work Phone: Start: 07-24-2021 Assessment of risk of venous thromboembolism [facility] Work Phone: Start: 07-24-2021 Insertion of catheter into peripheral vein [facility] Work Phone: Start: 07-24-2021 Providing care according to standard [facility] Work Phone: Start: 07-24-2021 Referral to gastroenterology service [facility] Work Phone: Start: 07-24-2021 Admission procedure [facility] Work Phone: Start: 07-24-2021 Following clinical pathway protocol [facility] Work Phone: Start: 07-24-2021 [facility] Work Phone: Start: 04-10-2017 End: 04-10-2017 Appointment Appointment [facility] Work Phone: Start: 12-26-2016 End: 12-26-2016 Ecg routine ecg w/least 12 lds w/i&r EKG (In office) [facility] Work Phone: Start: 09-27-2016 End: 12-26-2016 Follow Up Appt 6 months Follow Up Appt 6 months [facility] Work Phone: Start: 09-27-2016 End: 12-26-2016 MMM MMM [facility] Work Phone: Start: 06-28-2016 End: 08-26-2016 INR Coag RelTime (PPP) *PT/INR - Standing Order [facility] Work Phone: Start: 05-15-2016 End: 05-28-2016 INR Coag RelTime (PPP) *PT/INR - Standing Order [facility] Work Phone: Start: 04-04-2016 Screening for osteoporosis Bone Density Screening [facility] Start: 03-14-2016 End: 03-14-2016 *BMP *BMP [facility] Work Phone: Start: 03-14-2016 End: 03-14-2016 *CBC with Differential *CBC with Differential [facility] Work Phone: Start: 03-14-2016 End: 03-14-2016 Follow Up Appt 6 months Follow Up Appt 6 months [facility] Work Phone: Start: 03-14-2016 End: 03-14-2016 MMM MMM [facility] Work Phone: Start: 03-14-2016 End: 03-14-2016 Thyroid stimulating hormone (TSH) *TSH [facility] Work Phone: Start: 09-06-2015 End: 09-06-2015 TIMBER SIZER TIMBER SIZER [facility] Work Phone: Start: 09-06-2015 End: 09-06-2015 Follow Up Appt 6 months Follow Up Appt 6 months [facility] Work Phone: Start: 05-18-2015 End: 08-08-2015 INR Coag RelTime (PPP) *PT/INR - Standing Order [facility] Work Phone: Start: 03-10-2015 End: [...] 08-25-2015 *CBC with Differential *CBC with Differential [facility] Work Phone: Start: 08-11-2014 End: 08-12-2014 BNP *Brain Natriuretic Peptide BNP [facility] Work Phone: Start: 08-11-2014 End: 08-11-2014 TIMBER SIZER TIMBER SIZER [facility] Work Phone: Start: 08-11-2014 [...] 08-11-2014 End: 08-12-2014 Thyroxine (T4) *T4 (Total) [facility] Work Phone: Start: 07-26-2014 End: 08-11-2014 INR Coag RelTime (PPP) *PT/INR - Standing Order [facility] Work Phone: Start: 06-03-2014 End: 07-26-2014 INR Coag RelTime (PPP) *PT/INR - Standing Order [facility] Work Phone: Start: 03-17-2014 End: 03-17-2014 Follow Up Appt 6 months Follow Up Appt 6 months [facility] Work Phone: Start: 03-17-2014 End: 03-17-2014 MMM MMM [facility] Work Phone: Start: 11-17-2013 End: 11-17-2013 TIMBER SIZER TIMBER SIZER [facility] Work Phone: Start: 11-17-2013 End: 11-17-2013 Follow Up Appt 4 months Follow Up Appt 4 months [facility] Work Phone: Start: 11-17-2013 End: 11-23-2013 INR Coag RelTime (PPP) *PT/INR - Standing Order [facility] Work Phone: Start: 08-18-2013 End: 08-18-2013 24 hour holter monitor 24 hour holter monitor [facility] Work Phone: Start: 08-18-2013 End: 08-18-2013 Follow Up Appt 3 months Follow Up Appt 3 months [facility] Work Phone: Start: 08-18-2013 End: 08-18-2013 MMM MMM [facility] Work Phone: Start: 06-10-2013 DTaP/Tdap/Td Vaccines (1 - Tdap) DTaP/Tdap/Td Vaccines (1 - Tdap) [facility] Start: 06-10-2013 Urine microalbumin profile DTaP,Tdap,Td Vaccine (1 - Tdap) [facility] Start: 2011 RSV High Risk: (Elderly (60+) or Population) (1 - 1-dose 75+ series) RSV High Risk: (Elderly (60+) or Population) (1 - 1-dose 75+ series) [facility] Start: 2011 RSV Vaccine (1 - 1-dose 75+ series) RSV Vaccine (1 - 1-dose 75+ series) [facility] Start: 02-09-2006 Pneumococcal vaccination Pneumococcal Vaccine (2 of 2 - PCV) [facility] Start: 02-09-2006 Pneumococcal Vaccine: 50+ (2 of 2 - PCV) Pneumococcal Vaccine: 50+ (2 of 2 - PCV) [facility] Start: 1986 Shingrix Vaccine (1 of 2) Shingrix Vaccine (1 of 2) [facility] Start: 1986 Zoster Vaccines (1 of 2) Zoster Vaccines (1 of 2) [facility] Start: 1954 Anxiety Screening Anxiety Screening [facility] Start: 1954 Depression Screening Depression Screening [facility] Start: 1954 Diabetes mellitus screening Diabetes Screening [facility] Start: 1936 Lipid panel Lipid Panel [facility] Start: 1936 Medicare Annual Wellness Visit Medicare Annual Wellness Visit (AWV) [facility] Start: 1936 Screening for osteoporosis Bone Density Scan [facility] End: 10-12-2024 Bacteria identified in Urine by Culture [facility] Work Phone: Comment on above: Once (Lab) for 1 Occurrences starting until 10/12/2024 Basic metabolic 2008 panel with ionized calcium - Serum or Plasma [facility] End: 10-13-2024 ECG 12 Lead ECG 12 Lead ECG STAT Once for 1 Occurrences starting 10/13/2024 until 10/13/2024 [facility] Work Phone: Comment on above: Once for 1 Occurrences starting 10/14/19 25 until 10/13/2024 End: 05-14-2025 ECG COMPLETE ECG COMPLETE ECG Routine PAF (paroxysmal atrial fibrillation) (HCC) 1 Occurrences starting 05/14/2024 until 05/14/2025 [facility] Work Phone: Comment on above: 1 Occurrences starting 05/14/2024 until 05/14/2025 End: 10-12-2024 Extra Tubes [facility] Work Phone: Comment on above: Once (Lab) for 1 Occurrences starting until 10/12/2024 End: 10-12-2024 Extra Urine Bah Tube Extra Urine Bah Tube Lab Timed Once for 1 Occurrences starting 10/12/2024 until 10/12/2024 [facility] Work Phone: Comment on above: Once for 1 Occurrences starting 10/13/19 until 10/12/2024 INR in Blood by Coagulation assay [facility] Work Phone: End: 10-12-2024 Light Blue Top [facility] Work Phone: Comment on above: Once for 1 Occurrences starting 10/13/19 until 10/12/2024, 1 completed Natriuretic peptide. B prohormone N-Terminal [Mass/volume] in Serum or Plasma [facility] Patient Education [facility] Work Phone: Patient referral [facility] Work Phone: Prothrombin time [facility] Work Phone: Troponin T.cardiac [Mass/volume] in Serum or Plasma by High sensitivity method [facility] End: 10-12-2024 Urinalysis complete W Reflex Culture panel - Urine [facility] Work Phone: Comment on above: Once (Lab) for 1 Occurrences starting until 10/12/2024 Urine culture Urine Culture [facility] Work Phone: Urine culture [facility] Immunizations Immunization Date Immunization Notes Care Provider Fa [facility] 09-09-2024 pneumococcal polysaccharide vaccine, [address] Bridget Swenson MD Work Phone: [facility] 02-03-2024 influenza, seasonal, injectable, preservative free Dr. Bridget Swenson MD Work Phone: [facility] 02-19-2022 Xiang Godfrey nt Booster Dr. Doyle Swenson Work Phone: [facility] 02-08-2022 influenza, injectabl e, quadrivalent, preservative free Dr. Doyle Swenson Work Phone: [facility] 02-08-2022 influenza, seasonal, injectable Dr. Doyle Swenson Work Phone: [facility] 08-11-2021 Covid (Moderna) Dr. Hermann Swenson Work Phone: [facility] 03-16-2021 Covfl (Moderna) Dr. Hermann Swenson Work Phone: [facility] 02-13-2021 influenza, injectabl e, quadrivalent, preservative free Dr. Doyle Swenson Work Phone: [facility] 02-13-2021 influenza, seasonal, injectable Dr. Doyle Swenson Work Phone: [facility] 07-07-2020 Covfl (Moderna) Dr. Hermann Swenson Work Phone: [facility] 06-09-2020 Covfl (Moderna) Dr. Hermann Swenson Work Phone: [facility] 02-03-2018 influenza, injectabl e, quadrivalent, preservative free Dr. Doyle Swenson Work Phone: [facility] 02-03-2018 influenza, seasonal, injectable Dr. Doyle Swenson Work Phone: [facility] 06-25-2017 tetanus toxoid, redu pat diphtheria toxoid, and acellular pertussis vaccine, adsorbed Dr. Doyle Swenson Work Phone: [facility] 01-15-2017 influenza, injectabl e, quadrivalent, preservative free Dr. Doyle Swenson Work Phone: [facility] 01-15-2017 influenza, seasonal, injectable Dr. Doyle Swenson Work Phone: [facility] 01-30-2016 influenza, injectabl e, quadrivalent, preservative free Dr. Doyle Swenson Work Phone: [facility] 01-30-2016 influenza, seasonal, injectable Dr. Doyle Swenson Work Phone: [facility] 03-30-2015 pneumococcal conjuga te vaccine, [address] Doyle Swenson Work Phone: [facility] 03-06-2015 influenza, injectabl e, quadrivalent, preservative free Dr. Doyle Swenson Work Phone: [facility] 03-06-2015 influenza, seasonal, injectable Dr. Doyle Sewnson Work Phone: [facility] 03-01-2015 influenza, injectabl e, quadrivalent, preservative free Dr. Doyle Swenson Work Phone: [facility] 03-01-2015 influenza, seasonal, injectable Dr. Doyle Swenson Work Phone: [facility] 01-12-2014 influenza, injectabl e, quadrivalent, preservative free Dr. Doyle Swenson Work Phone: [facility] 01-12-2014 influenza, seasonal, injectable Dr. Doyle Swenson Work Phone: [facility] 01-12-2014 influenza virus vaccine, unspecified formulation Norma Andrysek JUNIOR ADMINISTRATIVE ASSISTANT.HUMAN RESOURCES BENEFITS MANAGER Work Phone: [facility] 06-09-2013 tetanus and diphther ia toxoids, adsorbed, preservative free, for adult use (2 Lf of tetanus toxoid and 2 Lf of diphtheria toxoid) Norma Andrysek JUNIOR ADMINISTRATIVE ASSISTANT.HUMAN RESOURCES BENEFITS MANAGER Work Phone: [facility] 02-13-2013 influenza virus vaccine, unspecified formulation Norma Andrysek JUNIOR ADMINISTRATIVE ASSISTANT.HUMAN RESOURCES BENEFITS MANAGER Work Phone: [facility] 02-08-2012 influenza virus vaccine, unspecified formulation Norma Andrysek JUNIOR ADMINISTRATIVE ASSISTANT.HUMAN RESOURCES BENEFITS MANAGER Work Phone: [facility] 02-28-2011 influenza virus vaccine, unspecified formulation Norma Andrysek JUNIOR ADMINISTRATIVE ASSISTANT.HUMAN RESOURCES BENEFITS MANAGER Work Phone: [facility] 02-26-2010 influenza virus vaccine, unspecified formulation Norma Andrysek JUNIOR ADMINISTRATIVE ASSISTANT.HUMAN RESOURCES BENEFITS MANAGER Work Phone: [facility] 03-18-2008 influenza virus vaccine, unspecified formulation Norma Andrysek JUNIOR ADMINISTRATIVE ASSISTANT.[facility] Work Phone: [facility] Work Phone: 03-11-2007 influenza virus vaccine, unspecified formulation Norma Moon APRN.[facility] Work Phone: [facility] Work Phone: 02-26-2005 influenza virus vaccine, unspecified formulation Norma Moon APRN.[facility] Work Phone: [facility] 02-09-2005 pneumococcal polysaccharide vaccine, 23 valent Norma Moon APRN.[facility] Work Phone: [facility] 02-22-2004 influenza virus vaccine, unspecified formulation Cari Wong MD, PhD Work Phone: [facility] 05-12-2003 tetanus and diphther ia toxoids, adsorbed, preservative free, for adult use (2 Lf of tetanus toxoid and 2 Lf of diphtheria toxoid) Norma Moon APRN.[facility] Work Phone: [facility] Payers Date Payer Category Payer Self-pay [id number] 2018 [facility] DICARE SUPPLEMENT [id number] 15 2018 Medicare supplementa l policy (as second payer) ANTHEM MEDICARE SELECT SUPPLEMENT [id number] 2012 Unknown [id number] 2004 Unknown [id number] 1.13.15 [id number] 2004 Unknown [id number] 2001 Medicare [id number] 1.13.15 [id number] 2001 Medicare [id number] 2001 Medicare [id number] 1936 Unknown [id number] 2.16.840.1.238674.3.57 9.2.1243 Unknown [id number] 2.16.840.1.441570.3.57 9.2.462 Unknown [id number] 2.16.840.1.316538.3.57 9.2.462 Unknown [id number] 2.16.840.1.788231.3.57 9.2.462 Unknown [id number] 2.16.840.1.262780.3.57 9.2.462 Unknown [id number] 2.16.840.1.784032.3.57 9.2.462 Unknown [id number] 2.16.840.1.751085.3.57 9.2.462 Unknown [id number] 2.16.840.1.470798.3.57 9.2.462 Unknown [id number] 2.16.840.1.812698.3.57 9.2.462 Unknown [id number] 2.16.840.1.606099.3.57 9.2.462 Unknown [id number] 2.16.840.1.845096.3.57 9.2.462 Unknown [id number] 2.16.840.1.754928.3.57 9.2.462 Unknown [id number] 2.16.840.1.049436.3.57 9.2.462 Unknown [id number] 2.16.840.1.643343.3.57 9.2.462 Unknown [id number] 2.16.840.1.975747.3.57 9.2.462 Unknown [id number] 2.16.840.1.062661.3.57 9.2.462 Unknown [id number] 2.16.840.1.201759.3.57 9.2.462 Unknown [id number] 2.16.840.1.518270.3.57 9.2.462 Unknown [id number] 2.16.840.1.046004.3.57 9.2.462 Unknown [id number] 2.16.840.1.425096.3.57 9.2.462 Unknown [id number] 2.16.840.1.703596.3.57 9.2.462 Unknown [id number] 2.16.840.1.614597.3.57 9.2.462 Unknown [id number] 2.16.840.1.370754.3.57 9.2.462 Unknown [id number] 2.16.840.1.774786.3.57 9.2.462 Unknown [id number] 2.16.840.1.058957.3.57 9.2.462 Unknown [id number] 2.16.840.1.735256.3.57 9.2.462 Unknown [id number] 2.16.840.1.147959.3.57 9.2.462 Unknown [id number] 2.16.840.1.599189.3.57 9.2.462 Unknown [id number] 2.16.840.1.118445.3.57 9.2.462 Unknown [id number] 2.16.840.1.242766.3.57 9.2.462 Unknown [id number] 2.16.840.1.017749.3.57 9.2.462 Unknown [id number] 2.16.840.1.843703.3.57 9.2.462 Unknown [id number] 2.16.840.1.848444.3.57 9.2.462 Unknown [id number] 2.16.840.1.661556.3.57 9.2.462 Unknown [id number] 2.16.840.1.484479.3.57 9.2.462 Unknown [id number] 2.16.840.1.212157.3.57 9.2.462 Unknown [id number] 2.16.840.1.048676.3.57 9.2.462 Unknown [id number] 2.16.840.1.314481.3.57 9.2.462 Unknown [id number] 2.16.840.1.107362.3.57 9.2.462 Unknown [id number] 2.16.840.1.336837.3.57 9.2.462 Unknown [id number] 2.16.840.1.102832.3.57 9.2.462 Unknown [id number] 2.16.840.1.273847.3.57 9.2.462 Unknown [id number] 2.16.840.1.418694.3.57 9.2.462 Unknown [id number] 2.16.840.1.962620.3.57 9.2.462 Unknown [id number] 2.16.840.1.577187.3.57 9.2.462 Unknown [id number] 2.16.840.1.385581.3.57 9.2.462 Unknown [id number] 2.16.840.1.940531.3.57 9.2.462 Unknown [id number] 2.16.840.1.699308.3.57 9.2.462 Unknown [id number] 2.16.840.1.637427.3.57 9.2.462 Unknown [id number] 2.16.840.1.563563.3.57 9.2.462 Unknown [id number] 2.16.840.1.913822.3.57 9.2.462 Unknown [id number] 2.16.840.1.988753.3.57 9.2.462 Unknown [id number] 2.16.840.1.848725.3.57 9.2.462 Unknown [id number] 2.16.840.1.645084.3.57 9.2.462 Unknown [id number] 2.16.840.1.191578.3.57 9.2.462 Unknown [id number] 2.16.840.1.550651.3.57 9.2.462 Social History Date Type Detail Facility [facility] Work Phone: Start: 07-24-2021 End: 05-12-2023 Tobacco smoking status NEIS Unknown if ever smoked [facility] Start: 03-28-2019 None [facility] Start: 03-28-2019 With Family [facility] Start: 1935 Sex Assigned At Female [facility] Start: 10-17-2010 End: 11-17-2024 Tobacco smoking status NHIS Never smoked tobacco [facility] Start: 10-17-2010 Tobacco use and exposure Smokeless tobacco non-user [facility] Start: 12-26-2021 End: 05-14-2024 Alcoholic beverage intake Current non-drinker of alcohol (finding) [facility] Start: 05-14-2024 End: 06-27-2024 History of Social function [facility] Start: 05-14-2024 End: 06-27-2024 Tobacco use panel [facility] Subtotal = 3 or greater suggests DEPRESSION 0 [facility] Start: 1935 Sex assigned at Not on file [facility] Has the electric, gas, oil, or water company threatened to shut off services in your home in past 12Mo No [facility] (I/We) worried whether (my/our) food would run out before (I/we) got money to buy more. Never true [facility] Start: 07-26-2024 End: 08-30-2024 Sex Female (finding) [facility] Start: 08-31-2024 Non-smoker [facility] Start: 10-02-2024 End: 10-13-2024 Exposure to SARS-CoV-2 (event) Unable to assess [facility] Work Phone: NEGATED: Highlighted row [facility] Medical Equipment Procedure Code Equipment Code [...] Assessment Result Facility 10-09-2024 Functional status Chair [facility] Work Phone: 09-03-2024 Functional status Ambulates [facility] Work Phone: 08-31-2024 Functional status Chair [facility] Work Phone: 07-26-2024 Functional status Ambulates;Up ad ken White [facility] Work Phone: 06-15-2024 Functional status Up ad ken;Chair [facility] Work Phone: 05-30-2024 Functional status With Assist of 1 [place] [facility] Work Phone: 05-27-2024 Functional status Bathroom Privilege [facility] Work Phone: 05-16-2024 Are you deaf, or do you have serious difficulty hearing Yes 05/16/2024 1:06 PM Twin Norwood RN Yes [facility] 05-16-2024 Are you blind, or do you have serious difficulty seeing, even when wearing glasses No 05/16/2024 1:06 PM [place] RN No [facility] 05-16-2024 Do you have serious difficulty walking or climbing stairs Yes 05/16/2024 1:06 PM Twin Norwood RN Yes [facility] 05-16-2024 Do you have difficul ty dressing or bathing Yes 05/16/2024 1:06 PM Twin Norwood, ALBERT Yes [facility] 05-16-2024 Because of a physica l, mental, or emotional condition, do you have difficulty doing errands alone such as visiting a physician's office or shopping Yes 05/16/2024 1:06 PM Twin [place]wood, ALBERT Yes [facility] 04-18-2022 Functional status Bathroom Privilege [facility] Work Phone: 04-11-2022 Functional status Ambulates [facility] Work Phone: 03-18-2022 Functional status Up ad ken [facility] Work Phone: 02-18-2022 Functional status Ambulates [facility] Work Phone: 02-14-2022 Functional status Chair [facility] Work Phone: 02-11-2022 Functional status Ambulates;Marques r;Bedside Commode [facility] Work Phone: 07-25-2021 Functional status Ambulates [facility] Work Phone: Mental Status Date Assessment Result Facility 11-17-2024 Cognitive function Voice/Name [facility] Work Phone: 10-09-2024 Cognitive function Voice/Name [facility] Work Phone: 10-03-2024 Cognitive function Awake;Alert;F ollows Commands [facility] Work Phone: 09-03-2024 Cognitive function Voice/Name [facility] Work Phone: 08-31-2024 Cognitive function Voice/Name [facility] Work Phone: 08-30-2024 Cognitive function Awake;Alert [facility] Work Phone: 07-26-2024 Cognitive function Voice/Name [facility] Work Phone: 07-06-2024 Cognitive function Appropriate [facility] Work Phone: 06-15-2024 Cognitive function Voice/Name [facility] Work Phone: 06-10-2024 Cognitive function Appropriate;[facility] Work Phone: 05-30-2024 Cognitive function Voice/Name [facility] Work Phone: 05-16-2024 Because of a physica l, mental, or emotional condition, do you have serious difficulty concentrating, remembering, or making decisions No 05/16/2024 1:06 PM Twin Norwood RN [facility] 05-11-2024 Cognitive function Awake;Alert;A ppropriate;Fol lows Commands [facility] Work Phone: 05-12-2023 Cognitive function Level Of Cons ciousness Awake;Alert;Appropriate;Fol lows Commands [facility] Work Phone: 04-18-2022 Cognitive function Voice/Name [facility] Work Phone: 04-11-2022 Cognitive function Voice/Name [facility] Work Phone: 03-18-2022 Cognitive function Voice/Name [facility] Work Phone: 03-17-2022 Cognitive function Appropriate;[facility] Work Phone: 02-18-2022 Cognitive function Demonstrates ability to follow instructions/comprehend [facility] Work Phone: 02-14-2022 Cognitive function Voice/Name [facility] Work Phone: 02-11-2022 Cognitive function Voice/Name [facility] Work Phone: 02-09-2022 Cognitive function Level Of Cons ciousness Awake;Alert;Appropriate;Fol lows Commands [facility] Work Phone: 07-25-2021 Cognitive function Appropriate;Cooperativ e [facility] Work Phone: 07-25-2021 Cognitive function Arousable To Voice/Nam e [facility] Work Phone: Clinical Notes 05-12-2023 to 11-17-2024 Nichole Franco Guerra, DO - 10/13/2024 12:35 AM EDTMjessica Guerra, DO - 10/13/2024 12:35 AM EDT Note Date & Type Note Facility 11-17-2024 Radiology Diagnostic study note [facility] 10-13-2024 Physician Emergency department Note HPI Chief Complaint Patient presents with Altered Mental Status Via AFD from [facility]. Facility RN reports she woke up yelling/flailing. LKW 2030 when staff put her to bed. Mari URBAN met in [facility] 89-year-old female presents [facility] very agitated and upset. Symptoms started approximately [...] (urinary tract infection), bacterial No data recorded [place] Coma Scale Score: 13 (10/12/24 2313 : [...] Not on file Nichole Guerra DO 10/13/2444 [facility] Work Phone: 10-13-2024 Emergency department Note HPI Chief Complaint Patient presents with Altered Mental Status Via AFD from [facility]. Facility RN reports she woke up yelling/flailing. LKW 2030 when staff put her to bed. Mari URBAN met in [facility] 89-year-old female presents from [facility] very agitated and upset. Symptoms started approximately [...] ED Course User Index [MS] Nichole Franco Mari, Diagnoses as of 10/13/24 0044 Altered mental status, unspecified altered mental status type UTI (urinary tract infection), bacterial No data recorded Brandon Coma Scale Score: 13 (10/12/243 : Branden Mcclain RN) Medical Decision Making [...] Guerra DO 10/13/2444 documented in this encounter [facility] Work Phone: 10-09-2024 Discharge summary Note Date/Time October 09, 2024 11:02am [facility] Medical Records Department [address] [place] [address] Discharge Summary 10/09/24 0957 MR#: [id number] Acct: [id number] Name: JOYCE SOLOMON Rep #:[id number] : 1935 89 From: Santino Ybarra cari PCP: Dr. Bridget Swenson MD Status :ADM IN Location: [place] [id number] Providers Date of Admission: 10/03/24 Date of [...] mg/mL subcutaneous syringe (Prolia) 60 mg subcut [id number] osteoporosis 10/08/19 aspirin 81 mg chewable tablet [...] is an 89-year-old female who presented to [facility] ED on 10/03/2024 with worsening confusion [...] home alone. Was discharged to SNF at [place] after recent hospitalization in late August. Therapy [...] 10/07/24 14:11 SB (Rec: 10/07/24 14:11 SB [id number]) Nutrition Malnutrition Evidence of Yes Malnutrition Exists [...] Gluten Free diet for Recommendations/ allergies per HYDROGEN PLANT OPERATOR consistency/texture recommendations. Changes Continue chocolate magic cup [...] Prolia 60 mg/mL syringe 60 mg SC [id number] Patient Comments: due February Rx Instructions: due [...] [facility] Charges/Coding Visit Charges Inpatient E&M: 64323 Disch Hosp >30min 10/09/24 1102 <Electronically signed by Santino Haas DO> Cosigner Signature (if applicable): CC: Dr. Santino Haas DO; Dr. Bridget Swenson MD~ Signed [facility] Work Phone: 1(689) 345-890205-31-2025 Discharge summary Author Santino Haas [facility] Note Date/Time October 09, 2024 10:05 am [facility] Medical Records Department [address] [place] [address] Transfer to [facility] MR#: [id number] Acct: [id number] Name: JOYCE SOLOMON Rep #:[id number] : 1935 89 From: Santino kong DO PCP: Dr. Bridget Swenson MD Status :ADM IN Certification of patient admission REQUIRED AT TIME OF ADMISSION. I CERTIFY THAT POST-HOSPITAL ECF SERVICES ARE REQUIRED TO BE GIVEN ON AN IN-PATIENT BASIS BECAUSE OF THE ABOVE NAMED PATIENT'S NEED FOR RETIREMENT CARE ON A CONTINUING BASIS FOR THE CONDITION(S) FOR WHICH HE/SHE WAS RECEIVING IN-PATIENT HOSPITAL SERVICES PRIOR TO HIS/HER TRANSFER TO THE ECF. 10/09/24 1005<Electronically signed by Santino Haas DO> Diet Diet Order/Speech Therapy: INPATIENT Hospital Diet / Speech Therapy Order(s) 10/07/24 15:51 Diet: Regular - General Food consistency:: Easy to Chew Dietary Modifications:: Gluten Free Type of Dietary Supplement:: Ava Breakfast Diet Comments: Direct sup, meds whole [...] is an 89-year-old female who presented to [facility] ED on 10/03/2024 with worsening confusion [...] home alone. Was discharged to SNF at [facility] after recent hospitalization in late August. Therapy [...] Regular, Gluten Free diet for allergies per HYDROGEN PLANT OPERATOR consistency/texture recommendations. Continue chocolate magic cup with [...] Prolia 60 mg/mL syringe 60 mg SC [id number] Patient Comments: due February Rx Instructions: due [...] MD; Dr. Juan José Suarez DO ~ [facility] Work Phone: 1(919) 112-401505-31-2025 [facility]05-30-2025 Progress note Author [facility] Note Date/Time October 08, 2024 2:38p [facility] Medical Records Department [address] [place] [address] Progress Note - Hospitalist 10/08/24 1152 MR#: [id number] Acct: [id number] Name: JOYCE SOLOMON Rep #:[id number] : 1935 89 From: Santino kong DO PCP: Dr. Bridget Swenson MD Status :ADM IN Location: [place] [address] Reason for Visit Reason for Visit: Diagnoses [...] 10/07/24 14:11 SB (Rec: 10/07/24 14:11 SB [id number]) Nutrition Malnutrition Evidence of Yes Malnutrition Exists [...] Gluten Free diet for Recommendations/ allergies per HYDROGEN PLANT OPERATOR consistency/texture recommendations. Changes Continue chocolate magic cup [...] is an 89-year-old female who presented to [facility] ED on 10/03/2024 with worsening confusion [...] at home alone. Was dischargedto SNF at [facility] after recent hospitalization in late August. Therapy scores borderline here; planning for SNF in [facility] TCU on discharge. Medically ready [...] 35 minutes. Charges/Coding Visit Charges Inpatient E&M: 96754 Subs Hosp L2 10/08/24 1349 <Electronically signed by Santino Haas DO> Cosigner Signature (if applicable): CC: ~ Signed [facility] Work Phone: 1(702) 558-609805-29-2025 Progress note Author Santino [facility] Note Date/Time October 07, 2024 12:42 pm [facility] Medical Records Department [address] [place] [address] Progress Note - Hospitalist 10/07/24 1038 MR#: [id number] Acct: [id number] Name: JOYCE SOLOMON Rep #:[id number] : 1935 89 From: Santino kong DO PCP: Dr. Bridget Swenson MD Status :ADM IN Location: [place] [address] Reason for Visit Reason for Visit: Diagnoses [...] Freq: Status: Active Protocol: Document 10/04/24 15:46 [facility] (Rec: 10/04/24 15:46 [facility] [id number]) Nutrition Malnutrition Evidence of Yes Malnutrition Exists [...] is an 89-year-old female who presented to [facility] ED on 10/03/2024 with worsening confusion [...] at home alone. Was dischargedto SNF at [facility] after recent hospitalization in late August. Therapy scores borderline here; planning for SNF in [facility] TCU on discharge. Medically ready [...] 35 minutes. Charges/Coding Visit Charges Inpatient E&M: 40646 Subs Hosp L2 10/07/24 1242 <Electronically signed by Santino Haas DO> Cosigner Signature (if applicable): CC: ~ Signed [facility] Work Phone: 1(758) 440-801905-28-2025 Progress note Author Santino [facility] Note Date/Time October 06, 2024 2:27p [facility] Medical Records Department [address] [place] [address] Progress Note - Hospitalist 10/06/24 2892 MR#: [id number] Acct: [id number] Name: JOYCE SOLOMON Rep #:[id number] : 1935 89 From: Santino kong DO PCP: Dr. Bridget Swenson MD Status :ADM CRISTIANA Location: [place] [address] Reason for Visit Reason for Visit: Diagnoses [...] 10/04/24 15:46 [facility] (Rec: 10/04/24 15:46 [facility] [id number]) Nutrition Malnutrition Evidence of Yes Malnutrition Exists [...] is an 89-year-old female who presented to [facility] ED on 10/03/2024 with worsening confusion [...] at home alone. Was dischargedto SNF at [facility] after recent hospitalization in late August. Therapy [...] 35 minutes. Charges/Coding Visit Charges Inpatient E&M: 23921 Subs Hosp L2 10/06/24 1428 <Electronically signed by Santino Haas DO> Cosigner Signature (if applicable): CC: ~ Signed [facility] Work Phone: 1(252) 376-290405-27-2025 Progress note Author Santino [facility] Note Date/Time October 05, 2024 1:12p m [facility] Medical Records Department [address] [place] [address] Progress Note - Hospitalist 10/05/24 1308 MR#: [id number] Acct: [id number] Name: JOYCE SOLOMON Rep #:[id number] : 1935 89 From: Santino kong DO PCP: Dr. Bridget Swenson MD Status :ADM CRISTIANA Location: [place] [address] Reason for Visit Reason for Visit: Diagnoses [...] 10/04/24 15:46 [facility] (Rec: 10/04/24 15:46 [facility] [id number]) Nutrition Malnutrition Evidence of Yes Malnutrition Exists [...] is an 89-year-old female who presented to [facility] ED on 10/03/2024 with worsening confusion [...] at home alone. Was dischargedto SNF at [facility] after recent hospitalization in late August. Therapy [...] CCA, DNI Expected disposition: Likely home with [facility], 1 to 2 days Total clinical time spent by myself addressing the patient's medical issues, reviewing all the data, and collaborating with patient's care team: 35 minutes. Charges/Coding Visit Charges Inpatient E&M: 35894 Subs Hosp L2 10/05/24 1312 <Electronically signed by Santino Haas DO> Cosigner Signature (if applicable): CC: ~ Signed [facility] Work Phone: 1(568) 227-800705-27-2025 Consult note Author Robert Castillo [facility] Note Date/Time October 05, 2024 1:05p m [facility] Medical Records Department [address] [place] [address] Consultation - Neurology 10/05/24 1248 MR#: [id number] Acct: [id number] Name: JOYCE SOLOMON Rep #:[id number] : 1935 89 From: Robert Castillo MD PCP: Dr. Bridget Swenson MD Status :ADM CRISTIANA Location: [place] [address] Assessment and Plan: Neuro Assessment/Plan JOYCE SOLOMON [...] wall motion abnormalities of the LV 5. 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 Normotension is the goal 7. [...] LVO. Telestroke was consulted for further recommendations. [facility] Medical History (Updated 10/04/24 @ 03:17 by [...] denosumab 60 mg/mL subcutaneous 60 mg subcut [id number] osteoporosis 10/08/19 08/24/21 History syringe (Prolia) aspirin [...] History adopted: No household members: [facility]: 2 current occupational status: retired current occupational exposures/hazards: No pets and animals: No leisure activities: reading and other history of recent travel: Yes (concert in [place]) Smoking Status: Never smoker alcohol intake: never [...] Document 10/04/24 15:46 [facility] (Rec: 10/04/24 15:46 [facility] [id number]) Nutrition Malnutrition Evidence of Yes Malnutrition Exists [...] mls @ 15 mls/hr 10/04/24 02:54 IV .[id number] PRN Saline Flush Sodium Chloride 250 mls @ 15 mls/hr 10/04/24 02:54 IV .[id number] PRN Additional IVPB Infusion Losartan Potassium 100 [...] applicable): CC: Dr. Bridget Swenson MD~ Signed [facility] Work Phone: 1(244) 598-446705-26-2025 Progress note Author [facility] Note Date/Time October 04, 2024 1:56p m [facility] Medical Records Department [address] [place] [address] Progress Note - Hospitalist 10/04/24 1037 MR#: [id number] Acct: [id number] Name: JOYCE SOLOMON Rep #:[id number] : 1935 89 From: Santino kong DO PCP: Dr. Bridget Swenson MD Status :ADM CRISTIANA Location: [place] [address] Reason for Visit Reason for Visit: Diagnoses [...] 79.6 H, Lymph % (Auto) 9.6 L, Hamblen % (Auto) 9.8, Eos % (Auto) 0.1, [...] Clarity Clear, Urine pH 6.5, Ur Specific Arnold 1.010, Urine Protein 30 H, Urine Glucose [...] 71.3 H, Lymph % (Auto) 14.8 L, Hamblen % (Auto) 11.6 H, Eos % (Auto) [...] ACUTE CERVICAL FRACTURE. DEGENERATIVE CHANGES. Reading Location: [facility] Chest CT 10/03/24 19:44 IMPRESSION: 1. No acute thoracic finding. 2. Chronic findings as described. Reading Location: [facility] Brain CT 10/03/24 19:45 IMPRESSION: No acute intracranial finding. Reading Location: [facility] Hip/Pelvis X-Ray 10/03/24 21:28 IMPRESSION: DEGENERATIVE OSTEOARTHROSIS. NO ACUTE FINDINGS. Reading Location: [facility] Rhythm Strip Rhythm Strip: Sinus Rhythm Rate: [...] is an 89-year-old female who presented to [facility] ED on 10/03/2024 with worsening confusion [...] at home alone. Was dischargedto SNF at [facility] after recent hospitalization in late August. Therapy [...] CCA, DNI Expected disposition: Likely home with [facility], 1 to 2 days Total clinical time spent by myself addressing the patient's medical issues, reviewing all the data, and collaborating with patient's care team: 35 minutes. Charges/Coding Visit Charges Inpatient E&M: 09265 Subs Hosp L2 10/04/24 1357 <Electronically signed by Santino Haas DO> Cosigner Signature (if applicable): CC: ~ Signed [facility] Work Phone: 1(131) 719-433405-26-2025 History and physical note Author Juan Joés Thorpe [facility] Note Date/Time October 04, 2024 6:26a m [facility] Medical Records Department [address] [place] [address] H&P Exam - Hospitalist 10/03/24 4800 MR#: [id number] Acct: [id number] Name: JOYCE SOLOMON Rep #:[id number] : 1935 89 From: Juan José Butler DO PCP: Dr. Bridget Swenson MD Status :ADM CRISTIANA Location: [place] [address] HPI - General General Date of Admission: [...] for PFO with patient recommendedto go to snf facility - but with patient refusing and opting to return home who then returned for another admission from September 01, 2024 to 2024 for treatment of hypertensive urgency with altered mental status who now re-presents to [facility] ER after family noted worsening confusion. Unfortunately, this patient has been admitted previously for similar complaint with complete stroke workup done but with patient unwilling to go to alf and family unable understand patient is no longer able to live independently resulting in a pattern of serial readmission. According to the records her family was concerned about her ability to live at home alone becausewhen they went to check on her earlier today she was speaking gibberish when home health arrived. She had recently been at [facility] but apparently could not afford to stay [...] expected to be less than 2 midnights. [facility] Medical History (Updated 10/04/24 @ 03:17 by [...] denosumab 60 mg/mL subcutaneous 60 mg subcut [id number] osteoporosis 10/08/19 08/24/21 History syringe (Prolia) aspirin [...] History adopted: No household members: [facility] number [facility] children: 2 current occupational status: retired current occupational exposures/hazards: No pets and animals: No leisure activities: reading and other history of recent travel: Yes (concert in [place]) Smoking Status: Never smoker alcohol intake: never [...] 79.6 H, Lymph % (Auto) 9.6 L, Hamblen % (Auto) 9.8, Eos % (Auto) 0.1, [...] Clarity Clear, Urine pH 6.5, Ur Specific Arnold 1.010, Urine Protein 30 H, Urine Glucose [...] ACUTE CERVICAL FRACTURE. DEGENERATIVE CHANGES. Reading Location: [facility] Chest CT 10/03/24 19:44 IMPRESSION: 1. No acute thoracic finding. 2. Chronic findings as described. Reading Location: [facility] Brain CT 10/03/24 19:45 IMPRESSION: No acute intracranial finding. Reading Location: [facility] Hip/Pelvis X-Ray 10/03/24 21:28 IMPRESSION: DEGENERATIVE OSTEOARTHROSIS. NO ACUTE FINDINGS. Reading Location: [facility] Assessment & Plan Assessment/Plan (1) Toxic encephalopathy: [...] new neurologic insult. We will minimize CLINICAL ESTHETICIAN- active medications. Finally, we will consult PT/OT [...] Altered Mental Status who was discharged to [facility] with patient unable to afford [...] forPFO with patient recommended to go to snf facility - but with patient refusing and [...] 85 minutes. Charges/Coding Visit Charges OBSV E&M: 55268 Observ/hosp same date L3 10/04/24 0626 <Electronically signed by Juan José Suarez DO> Cosigner Signature (if applicable): CC: Dr. Bridget Swenson MD; Dr. Juan José Suarez DO~ Signed [facility] Work Phone: 1(443) 277-126305-26-2025 Discharge summary Author [facility] Note Date/Time October 04, 2024 12:14 am [facility] Medical Records Department [address] [place] [address] Emergency Department Summary 10/03/24 MR#: [id number] Acct: [id number] Name: JOYCE SOLOMON Rep #:[id number] : [...] and patient was apparently speaking gibberish when [facility] arrived. She had recently been in at [facility] but apparently could not afford it. [...] any urinary symptoms. She states she feels a little constipated. Family states that they will see her talking to herself and has been occurring with increased frequency since April but is gotten much worse lately. They are concerned about her ability to live home alone and feel that she is significantly worsenedover the past few days. [facility] Medical History Aphasia History of [...] denosumab 60 mg/mL subcutaneous 60 mg subcut [id number] osteoporosis 10/08/19 08/24/21 History syringe (Prolia) aspirin [...] History adopted: No household members: none housing: [facility] number of children: 2 current occupational status: retired current occupational exposures/hazards: No pets and animals: No leisure activities: reading and other history of recent travel: Yes ([employer] in [place]) Smoking Status: Never smoker alcohol intake: never [...] 79.6 H Lymph % (Auto) 9.6 L Hamblen % (Auto) 9.8 Eos % (Auto) 0.1 [...] Clarity Clear Urine pH 6.5 Ur Specific Arnold 1.010 Urine Protein 30 H Urine Glucose [...] ACUTE CERVICAL FRACTURE. DEGENERATIVE CHANGES. Reading Location: [facility] Chest CT 10/03/24 19:44 IMPRESSION: 1. No acute thoracic finding. 2. Chronic findings as described. Reading Location: [facility] Brain CT 10/03/24 19:45 IMPRESSION: No acute intracranial finding. Reading Location: [facility] Hip/Pelvis X-Ray 10/03/24 21:28 IMPRESSION: DEGENERATIVE OSTEOARTHROSIS. NO ACUTE FINDINGS. Reading Location: [facility] Rhythm Strip Rhythm Strip: Sinus Rhythm Rate: [...] Prolia 60 mg/mL syringe 60 mg SC [id number] Patient Comments: due February Rx Instructions: due [...] MD [Primary Care Provider] - Print Language: Citizen Of [place] Disposition Disposition: Acute Care Hospital [facility] What to do if you have Problems For any increased pain, shortness of breath, bleeding, nausea or vomiting, chestpain, or any unexpected problems, contact your Primary Care Provider. Call [facility] ([phone]) or report to the closest Emergency Room. Call 911 if necessary. 10/04/2413 <Electronically signed by Diana Snow DO> Cosigner Signature (if applicable): CC: Dr. Bridget Swenson MD ~ Signed [facility] Work Phone: 1([phone]) 398-132405-26-2025 Discharge summary Author Diana [facility] Note Date/Time October 04, 2024 12:14 am [facility] Medical Records Department [address] [place] [address] Emergency Department Summary 10/03/24 MR#: [id number] Acct: [id number] Name: JOYCE SOLOMON Rep #:[id number] : [...] arrived. She had recently been in at [facility] but apparently could not afford it. [...] any urinary symptoms. She states she feels a little constipated. Family states that they will see her talking to herself and has been occurring with increased frequency since April but is gotten much worse lately. They are concerned about her ability to live home alone and feel that she is significantly worsenedover the past few days. [facility] Medical History Aphasia History of [...] denosumab 60 mg/mL subcutaneous 60 mg subcut [id number] osteoporosis 10/08/19 08/24/21 History syringe (Prolia) aspirin [...] Reaction Status Date / Time cefazolin (From [facility]) Allergy Severe Swelling Verified 10/03/24 17:47 silk [...] history of recent travel: Yes (concert in [place]) Smoking Status: Never smoker alcohol intake: never [...] 79.6 H Lymph % (Auto) 9.6 L Hamblen % (Auto) 9.8 Eos % (Auto) 0.1 [...] Clarity Clear Urine pH 6.5 Ur Specific Arnold 1.010 Urine Protein 30 H Urine Glucose [...] ACUTE CERVICAL FRACTURE. DEGENERATIVE CHANGES. Reading Location: [facility] Chest CT 10/03/24 19:44 IMPRESSION: 1. No acute thoracic finding. 2. Chronic findings as described. Reading Location: [facility] Brain CT 10/03/24 19:45 IMPRESSION: No acute intracranial finding. Reading Location: [facility] Hip/Pelvis X-Ray 10/03/24 21:28 IMPRESSION: DEGENERATIVE OSTEOARTHROSIS. NO ACUTE FINDINGS. Reading Location: [facility] Rhythm Strip Rhythm Strip: Sinus Rhythm Rate: [...] Prolia 60 mg/mL syringe 60 mg SC [id number] Patient Comments: due February Rx Instructions: due [...] MD [Primary Care Provider] - Print Language: Citizen Of [place] Disposition Disposition: Acute Care Hospital [facility] What to do if you have Problems For any increased pain, shortness of breath, bleeding, nausea or vomiting, chestpain, or any unexpected problems, contact your Primary Care Provider. Call [facility] ([phone]) or report to the closest Emergency Room. Call 911 if necessary. 10/04/24 0014 <Electronically signed by Diana Snow DO> Cosigner Signature (if applicable): CC: Dr. Bridget Swenson MD ~ Signed [facility] Work Phone: 1(560) 811-596905-25-2025 Radiology Diagnostic study [facility]05-25-2025 Radiology Diagnostic study [facility]05-25-2025 Radiology Diagnostic study [facility] 10-03-2024 Radiology Diagnostic study [facility]04-25-2025 [facility]04-22-2025 [facility] 08-30-2024 Evaluation note* Diagnosis Onset Date Resolution [...] Chest pressure inactive November 19, 2024 10:23am [facility] Work Phone: 1(772) 191-641304-21-2025 Evaluation note* Diagnosis Onset Date Resolution Status [...] 2024 2:20pm Chest pressure inactive December 2:20pm [facility] Work Phone: 1(343) 365-512404-21-2025 Radiology Diagnostic study [facility]04-21-2025 Radiology Diagnostic study [facility]04-21-2025 Radiology Diagnostic study [facility] 07-20-2024 Discharge summary Author Aleks Marshall [facility] Note Date/Time July 20, 2024 7:2 7pm [facility] Medical Records Department [address] [place] [address] Discharge Summary 07/20/241914 MR#: [id number] Acct: [id number] Name: JOYCE SOLOMON Rep #:[id number] : 1935 89 From: Aleks Marshall MD PCP: Dr. Bridget Swenson MD Status :ADM IN Location: [facility] TCU01-1 Providers Date of Admission: 06/30/24 [...] mg/mL subcutaneous syringe (Prolia) 60 mg subcut [id number] osteoporosis 10/08/19 aspirin 81 mg chewable tablet [...] disposition determination. Discharge home alone 07/26/2024, [facility] PT/OT/SN, Hospital Bed. Hospital Bed: Patient requires [...] Pulmonary venous congestion. Reading Location: [facility] D/C Instructions Discharge Diet: No restrictions Discharge [...] Additional Instructions: Discharge home alone 07/26/2024, [facility] PT/OT/SN, Hospital Bed. Hospital Bed: Patient requires [...] Jaja Gross; Sofia Aguila; Monik Crocker NP; Nelsy Copeland Instructions Additional Instructions / Restrictions: Discharge home alone 07/26/2024, [facility] PT/OT/SN, Hospital Bed. Hospital Bed: Patient requires [...] Prolia 60 mg/mL syringe 60 mg SC [id number] Patient Comments: due February Rx Instructions: due [...] Swenson MD; Dr. Aleks Marshall MD~ Signed [facility] Work Phone: 1(747) 113-750003-11-2025 [facility]03-11-2025 Radiology Diagnostic study [facility]02-20-2025 Progress note Author Wanda Caraballo [facility] Note Date/Time July 01, 2024 1:52pm [facility] Medical Records Department [address] [place] [address] Progress Note - Pharmacy 07/01/24 1429 MR#: [id number] Acct: [id number] Name: JOYCE SOLOMON Rep #:[id number] : 1935 89 From: Wanda Caraballo PCP: Dr. Bridget Swenson MD Status :ADM IN Location: U [facility]01-1 TCU RX Drug Regimen Review Subjective/Objective Subjective/Objective [...] 3 Mg Tablet PO 3 mg QHS [facility] Administration Methocarbamol 500 mg 06/30/24 22:00 07/01/24 14:06 Methocarbamol 500 Mg Tablet PO 500 mg TID [facility] Administration Metoprolol Tartrate 50 mg 06/30/24 22:00 07/01/24 09:28 Metoprolol Tartrate 50 Mg Tablet PO 50 mg BID [facility] Administration Protocol Modafinil 100 mg 07/02/24 10:00 Modafinil 200 Mg Tablet PO DAILY [facility] Polyethylene Glycol 17 gm 07/01/24 10:00 07/01/24 09:29 Polyethylene Glycol 3350 17 Gm Packet PO 17 gm DAILY [facility] Administration Pramipexole Dihydrochloride 3 mg 06/30/24 22:00 06/30/24 21:54 Pramipexole Di-Hcl 1 Mg Tablet PO 3 mg QHS [facility] Administration Senna/Docusate Sodium 1 tablet 06/30/24 22:00 07/01/24 09:29 Senna/Docusate Sodium 1 Tablet PO 1 tablet BID [facility] Administration Tamsulosin HCl 0.4 mg 07/01/24 17:30 Tamsulosin Hcl 0.4 Mg Capsule PO DAILY@1730 [facility] Tramadol HCl 50 mg 06/30/24 19:54 [...] 1452 <Electronically signed by Wanda Caraballo> Wanda Boateng Signature (if applicable): CC: ~ Signed [facility] Work Phone: 1(767) 899-644802-20-2025 History and physical note Author Aleks Marshall [facility] Note Date/Time July 01, 2024 6:29am [facility] Medical Records Department [address] [place] [address] History & Physical Exam 06/30/242013 MR#: [id number] Acct: [id number] Name: JOYCE SOLOMON Rep #:[id number] : 1935 89 From: Aleks Marshall MD PCP: Dr. Bridget Swenson MD Status :ADM IN Location: TCU TCU01-1 [facility] General Date of Admission: 06/30/24 Date of Service: 07/01/24 Chief Complaint: Here for rehabilitation. HPI Narrative JOYCE SOLOMON, is a 89 Female who presents with followin06/26/2024 Admit to [facility] for ground level fall. Multiple recent [...] rehabilitation, strengthening, prior to discharge home alone. [facility] Medical History (Updated 06/30/24 @ 20:25 by [...] denosumab 60 mg/mL subcutaneous 60 mg subcut [id number] osteoporosis 10/08/19 08/24/21 History syringe (Prolia) Held [...] Reaction Status Date / Time cefazolin (From [facility]) Allergy Severe Swelling Verified 12/31/24 11:51 silk Allergy Intermediate itching Verified 05/11/24 [...] history of recent travel: Yes (concert in [place]) Smoking Status: Never smoker alcohol intake: never [...] Urinary retention - Tamsulosin 0.4mg daily. 07/01/24 0724 <Electronically signed by Aleks Marshall MD> Cosigner Signature (if applicable): CC: Dr. Bridget Swenson MD; Dr. Aleks Marshall MD~ Signed [facility] Work Phone: 1(198) 492-620402-19-2025 Evaluation note* Diagnosis Onset Date Resolution Status [...] residual deficit inactive October 06, 2024 2:26pm [facility] Work Phone: 1(704) 807-872302-19-2025 Evaluation note* Diagnosis Onset Date Resolution Status Admit Date Cerebral amyloid angiopathy acute June 30, 2024 6:43pm Debility acute June 30, 2024 6:43pm Essential (primary) hypertension acute June 30, 2 025 6:43pm Insomnia acute June 30, 2024 6:43pm Obstructive sleep apnea acute F ary 2024 6:43pm Osteoporosis acute June 6:43pm Subarachnoid [...] fibrillation chron ic November 19, 2024 10:23am [facility] Work Phone: [phone]) [phone] [facility]02-19-2025 NoteHNO ID: [id number] Author: SHAR GONSALEZ, ALBERT Service: Care Management Author Type: Registered Nurse [...] and Phone #:: [facility] ( [facility] ) [phone] / [phone] Date of Trip: 06/30/24 Time of Trip: 1730 Type of Service: BLS Non-emergency Is Patient Medicaid Pending?: No Was transportation financial coverage discussed with family?: Patient Instructor Pilot Location: [facility] Destination: [facility] Financial Care Management Responsibility: None Additional Information: Patient discharging to [facility] via [facility] today at 1730. No auth or 7000 needed. Transport packet next to chart and RN to call report. SIGNATURE: Shar Gonsalez RN PATIENT NAME: Joyce Solomon DATE: June 30, 2024 TIME: 1:01 [facility]02-19-2025 NoteHNO ID: [id number] Author: SHAR GONSALEZ RN Service: Care Management Author Type: Registered Nurse Type: Care Mgt Progress Note Filed: 06/30/2024 13:00 Note Text: CARE MANAGEMENT PROGRESS NOTE SERVICE DATE: 06/30/2024 SERVICE TIME: 1:00 PM LOS: 3 days IMM Follow Up Copy Given: Yes Copy given to:: Patient Method: In Person SIGNATURE: Shar Gonsalez RN PATIENT NAME: Joyce Solomon DATE: June 30, 2024 TIME: 1:00 [facility]02-19-2025 NoteHNO ID: [id number] Author: SHAR GONSALEZ RN Service: Care Management Author Type: Registered Nurse Type: Care Mgt Progress Note Filed: 06/30/2024 11:11 Note Text: CARE MANAGEMENT PROGRESS NOTE SERVICE DATE: 06/30/2024 SERVICE TIME: 11:10 AM LOS: 3 days Needs Prior to Discharge: To Be Determined, Accepting Facility, Bed Availability, Discharge Transportation Patient agreeable to [facility]. Per Mery COWART she was transitioned to them prior to dc last time and would prefer her to admit to TCU this time. [facility] Per team she is medically ready for dc and has met her 3 midnight requirement. CM will continue to follow and arrange transport at nd. SIGNATURE: Shar Gonsalez RN PATIENT NAME: Joyce Solomon DATE: June 30, 2024 TIME: 11:10 [facility]02-18-2025 NoteHNO ID: [id number] Author: SHAR GONSALEZ RN Service: Care Management Author Type: Registered Nurse Type: Care Mgt Progress Note Filed: 06/29/2024 11:28 Note Text: CARE MANAGEMENT PROGRESS NOTE SERVICE DATE: 06/29/2024 SERVICE TIME: 11:27 AM LOS: 2 days Needs Prior to Discharge: To Be Determined, Accepting Facility, Bed Availability, Discharge Transportation Patient skilled for [place]. Per previous conversation with patient, she would like to return to [facility] tasked to build and send referral. She does not need auth or 7000 but will need transport. Cm will continue to follow. SIGNATURE: Shar Gonsalez RN PATIENT NAME: Joyce Solomon DATE: June 29, 2024 TIME: 11:27 [facility]02-18-2025 NoteHNO ID: [id number] Author: PEEWEE LATIF APRN.CNP Service: General Surgery [...] 0659 06/29/24 07 - 06/30/24 0659 Shift 0980-2776 8519-2174 5959-9626 24 Hour Total 9568-8960 4543-3415 3739-3558 24 Hour Total INTAKE PO 849 806 6848 PO 371 071 3206 Supplements (mL) 0 0 Shift Total 508 430 7539 OUTPUT Urine 967 403 7279 Urine Incontinence/Not Saved 1 x 1 x Output ( External Collection Device 06/26/24) 635 229 9936 Shift Total 526 686 5200 Weight (kg) 76.2 76.2 76.2 76.2 76.2 [...] CT A (more content not included)...[facility] 06-28-2024 NoteHNO ID: [id number] Author: SHAR GONSALEZ RN Service: Care Management [...] Determined Advance Directives Current Advance Directive: None 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 After 5pm and on Weekends and Holidays, please page [phone] if in ICU or [phone] if on RNF. SUBJECTIVE: No acute overnight [...] 0659 06/28/24 07 - 06/29/24 0659 Shift 8041-4836 9874-7568 5035-2036 24 Hour Total 3683-9826 0697-9792 8820-3543 24 Hour Total INTAKE Shift Total OUTPUT [...] metatarsal fracture (more content not included)...[facility]02-17-2025 NoteHNO ID: [id number] Author: TARIK LOPEZ APRN.CNP Service: Neurosurgery Author [...] IANDO: Date 06/27/24 07 - 06/28/24 0659 06/28/24699 - 06/29/24 0659 Shift 9205-0634 4056-7598 9313-5613 24 Hour Total 8429-2222 5806-5319 1569-6964 24 Hour Total INTAKE Shift Total OUTPUT [...] June 28, 2024 TIME: 9:05 AM Pager: [phone]02-04-2025 NoteHNO ID: [id number] Author: JESSA RETANA APRN.HUMAN RESOURCES BENEFITS MANAGER Service: ? Author Type: Nurse Practitioner Type: Progress Notes Filed: 06/29/2024 02:01 Note Text: [facility] Established Visit PCP: Bridget Swenson (Jing) [address] [place] [address] CEREBROVASCULAR HISTORY Joyce Solomon is a 89 year old female who presents for neurologic evaluation following recent hospitalization for acute SAH (05/11/2024-05/16/2024). Stroke Event Information Jatin Solomon is a 89 yo F w/ PMH HTN, HLD, pAF on warfarin, NEL on CPAP, osteoporosis, secondary hypothyroidism transferred from [facility] May 11, 2024 for ICH monitoring. [...] started on nicardipine and transferred to [facility] for continuation of care. 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 Notes residual slurred speech, left side weakness, [...] administration at her facility CTH completed at [facility] 06/14/24 PAST MEDICAL HISTORY Diagnosis Date Abdominal pain, unspecified site Abdominal pain, unspecified site Depression Dyslipidemia Flatulence, eructation, and gas pain Fracture L shoulder (2007), Sacral stress fracture; R wrist Hypertension Mitral valve prolapse Obstructive sleep apnea Osteoporosis, unspecified 01/30/2005 Other symptoms involving digestive system(787.99) PAF (paroxysmal atrial fibrillation) ([facility]) 10/20/2013 Thyroid disorder PAST SURGICAL [...] tablets (more content not included)... [facility]02-04-2025 History of Present illness Narrative* Jessa Retana APRN.[facility] - 06/15/2024 11:01 AM EST [facility] Established Visit PCP: Bridget Swenson (Jing) [address] [place] [address] CEREBROVASCULAR HISTORY Joyce Solomon is a 89 year old female who presents for neurologic evaluation following recent hospitalization for acute SAH (05/11/2024-05/16/2024). Stroke Event Information Jatin Solomon is a 89 yo F w/ PMH HTN, HLD, pAF on warfarin, NEL on CPAP, osteoporosis, secondaryhypothyroidism transferred from [facility] May 11, 2024 for ICH monitoring. 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 Notes residual slurred speech, left side weakness, [...] administration at her facility CTH completed at [facility] 06/14/24 PAST MEDICAL HISTORY Diagnosis Date Abdominal pain, unspecified site Abdominal pain, unspecified site Depression Dyslipidemia Flatulence, eructation, and gas pain Fracture L shoulder (2007), Sacral stress fracture; R wrist Hypertension Mitral valve prolapse Obstructive sleep apnea Osteoporosis, unspecified 01/30/2005 Other symptoms involving digestive system(787.99) PAF (paroxysmal atrial fibrillation) ([facility]) 10/20/2013 Thyroid disorder PAST SURGICAL [...] GI Upset States had GI bleed Adhes. Bkep-Mrew-Im* Beets Rash raised injection site when allergy [...] tremor. Sensation: Grossly intact light touch. Coordination: Etrgvg-xb-jaxu without dysmetria bilaterally. Gait: Ambulates easily into the office without assistance. LABS Cholesterol: Cholesterol, Total (mg/dL) Date Value 04/09/2014 281 LDL Cholesterol (mg/dL) Date Value 04/09/2014 169 HDL Cholesterol (mg/dL) Date Value 04/09/2014 102 Triglyceride (mg/dL) Date Value 04/09/2014 51 Diabetes: No results found for: HBA1C IMAGING Reviewed Patient Entered Questionnaires PROMIS/NeuroQoL Score [...] which included preparing to see the patient, jchp-ag-fikp patient care, completing clinical documentation, obtaining and/or reviewing separately obtained history, performing a medically appropriate examination, counseling and educating the patient/family/caregiver, independently interpreting results (not separately reported), and communicating results to the patient/family/caregiver SIGNATURE Jessa Retana APRN.CNP 06/15/2024 documented [facility] encounter[facility]01-20-2025 [facility]01-19-2025 Evaluation note* Diagnosis Onset Date Resolution Status [...] 2024 2:05am NEL on CPAP acute September 01 025 2:05am Acute UTI acute October 04, 2024 12:39am Adverse drug reaction acute October 04, 2024 12:39am Fall acute October 04, 2024 12:39am History of hemorrhagic cerebrovascular accident (CVA) with residual deficit acute October 04, 2024 12:39am Noncompliance acute October 04, 2 025 12:39am Toxic encephalopathy acute October 04, 2024 12:39am Chronic back pain chronic September 12:39am [facility] Work Phone: 1(520) 594-914301-19-2025 Evaluation note* Diagnosis Onset Date Resolution Status [...] 2:05am Obesity (BMI 30.0-34.9) acute A pril 23rd, 2025 2:05am NEL on CPAP acute September 01, 2 025 2:05am Adverse drug reaction acute October 06, 2024 2:26pm Fall acute October 06, 2024 2:26pm History of hemorrhagic cerebrovascular accident (CVA) with residual deficit acute October 06, 2024 2:26pm Noncompliance acute October 06, 2 025 2:26pm Toxic encephalopathy acute October 06, 2024 2:26pm Chronic back pain inactive September 2:26pm [facility] Work Phone: 1(680) 774-507501-19-2025 [facility]01-08-2025 NoteHNO ID: [id number] Author: TATIANA FRAIRE RN Service: ? Author Type: Registered Nurse Type: Progress Notes Filed: 05/19/2024 10:57 Note Text: Procurement Accountant Endovascular Transitional Care Management Phone Call to [...] Provider Location Dept Phone 06/14/2024 1:00 PM [facility] (I-STAT) Mery Neff [phone] 06/15/2024 11:00 AM JESSA RETANA Po [phone] Verification of appointments/change appointment- verified these appts and that a cardiology appt was requested but is at in July. Read in DC summary that they would like sooner cardiology appt. She will call to try to reschedule and possibly get it closer to [facility]. Point of Contact: Are you the best point of contact for patient? yes Verify PCP(add if not on chart)on chart Staff provided office number to contact for f/up questions or concerns.-provided Questions: Questions at the end of the call? none Tatiana Fraire RN Endovascular Procurement Accountant, [facility] May 19, 2024 10:57 [facility]01-08-2025 History of Present illness Narrative* Tatiana Fraire RN - 05/19/2024 10:54 AM EST Procurement Accountant Endovascular Transitional Care Management Phone Call to [...] Provider Location Dept Phone 06/14/2024 1:00 PM [facility] (I-STAT) Mery Neff [phone] 06/15/2024 11:00 AM JESSA RETANA [facility] [phone] Verification of appointments/change appointment- verified these appts [...] the call? none Tatiana Fraire RN Endovascular Procurement Accountant, [facility] May 19, 2024 10:57 AM * Elena Ruiz - 05/19/2024 10:40 AM EST Transferred daughter to speak to Tatiana. * Tatiana Fraire RN - 05/19/2024 10:20 AM EST Called daughter, no answer. Left detailed message with appt updates and office number for f/up questions for stroke and nsgy f/up-[facility] and appt with Jessa Retana. Tatiana Fraire RN documented in this encounterSelect [facility]01-08-2025 NoteHNO ID: [id number] Author: ?, ?, ? Service: ? Author Type: ? Type: Progress Notes Filed: 05/19/2024 10:41 Note Text: Transferred daughter to speak to Tatiana.[facility]01-08-2025 NoteHNO ID: [id number] Author: TATIANA FRAIRE RN Service: ? Author Type: Registered Nurse Type: Progress Notes Filed: 05/19/2024 10:21 Note Text: Called daughter, no answer. Left detailed message with appt updates and office number for f/up questions for stroke and nsgy f/up-[facility] and appt with Jessa Retana. Tatiana Fraire RN[facility]-2025 NoteHNO ID: [id number] Author: TATIANA FRAIRE RN Service: ? Author Type: Registered Nurse Type: Progress Notes Filed: 05/19/2024 09:56 Note Text: Called and spoke with Jaja in case management at [facility].[phone] . She is just assessing pt today to update DC date and disposition, not sure where pt will be going after dc. Tentative DC date 18 days from 05/16. Pt needs CTH and ISMA f/up 4-6 weeks post discharge per message from inpatient nurse practitioner Faby Orozco, around 2/2(as well as stroke f/up already scheduled for 2/3. They do CT's at [facility], but pt will likely be d/c'd prior to date needed. Jaja will have nurse call to update us so we can schedule accordingly. Office number provided. Tatiana Fraire RN[facility]01-08-2025 History of Present illness Narrative* Tatiana Fraire RN - 05/19/2024 9:50 AM EST Called and spoke with Jaja in case management at [facility].[phone] . She is just assessing pt today to update DC date and disposition, not sure where pt will be going after dc. Tentative DC date 18 days from 05/16. Pt needs CTH and ISMA f/up 4-6 weeks post discharge per message from inpatient nurse practitioner Faby Orozco, around 2/2(as well as stroke f/up already scheduled for 23. They do CT's at [facility], but pt will likely be d/c'd prior to date needed. Jaja wahlve nurse call to update us so we can schedule accordingly. Office number provided. Tatiana Fraire RN documented in this encounterSelect [facility]01-08-2025 NotePatient Outreach (NSEVMN) Jatin SOLOMON ([id number]) 1935 F [facility] Date Time Provider Department 05/19/24 CARI WONG [facility] During your visit today, we recorded the following information about you: Tatiana Fraire, ALBERT 05/19/2024 9:56 AM Signed Called and spoke with Jaja in case management at [facility].[phone] . She is just assessing pt today to update DC date and disposition, not sure where pt will be going after dc. Tentative DC date 18 days from 05/16. Pt needs CTH and ISMA f/up 4-6 weeks post discharge per message from inpatient nurse practitioner Faby Orozco, around 2/2(as well as stroke f/up already scheduled for 23. They do CT's at [facility], but pt will likely be d/c'd prior to date needed. Jaja will have nurse call to update us so we can schedule accordingly. Office number provided. Tatiana Fraire RN Allergies As of Date: 05/19/2024 Noted Allergy Reaction SUTURES 11/26/2012 9 - Itching ACTONEL (RISEDRONATE SODIUM) 11/06/2007 8 - GI Upset Comments: States had GI bleed ADHES. 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 Left detailed message with appt updates and office number for f/up questions for stroke and nsgy f/up-[facility] and appt with Jessa Retana. [facility]ERT [facility]ila[facility]lena 05/19/2024 10:41 AM Signed Transferred daughter to speak to Tatiana. Tatiana Fraire RN 05/19/2024 10:57 AM Signed Procurement Accountant Endovascular Transitional Care Management Phone Call to [...] Provider Location Dept Phone 06/14/2024 1:00 PM [facility] (I-STAT) Mery Neff [phone] 06/15/2024 11:00 AM JESSA RETANA [facility] [phone] Verification of appointments/change appointment- verified these appts [...] the call? none Tatiana Fraire RN Endovascular Procurement Accountant, [facility] May 19, 2024 10:57 AM Allergies As of Date: 05/19/2024 Noted Allergy Reaction SUTURES 11/26/2012 9 - Itching ACTONEL (RISEDRONATE SODIUM) 11/06/2007 8 - GI Upset Comments: States had GI bleed ADHES. [id number] 12/09/2007 BEETS 05/28/2011 2 - Rash Comments: [...] Date Reviewed: 05/14/2024 Reviewed by: Damari Wiggins, ALBERT - Fully Assessed Reason for Visit: nsgy [...] 02/19/2012 Insomnia, unspecified [G47.00] 02/11/2007 02/19/2012 NIGHTMARE [STZ4923] 02/11/2007 04/12/2014 LUMBAR RADICULITIS [[id number]] 02/11/2007 BACKACHE NOS [M54.9] 02/17/2007 MITRAL INSUFFICIENCY [...] content not included)...[facility] 05-16-2024 [facility]01-05-2025 Evaluation note* Diagnosis Onset Date Resolution Status Admit Date Cerebral amyloid angiopathy acute May 16, 2024 4:02pm Debility deleted May 16, 2 025 4:02pm Essential (primary) hypertension acute May 16 4:02pm Nightmares acute May 16, 2 025 4:02pm Osteoporosis acute May 16, 2024 [...] deficiency anemia inactive Grant wang 2024 4:02pm director long term care (current) use of anticoagulants inactive May 16 [...] 30, 2024 6:43pm Essential (primary) hypertension acute February 19th, 2 025 6:43pm Insomnia acute June 30, [...] bone of right foot inactive June 6:43pm [facility] Work Phone: 1(317) 136-434601-05-2025 Evaluation note* Diagnosis Onset Date Resolution Status [...] deficiency anemia inactive Grant wang 2024 4:02pm director long term care (current) use of anticoagulants inactive May 16 4:02pm Secondary pulmonary arterial hypertension inactive May 16 4:02pm Sleep apnea inactive May 16, 2024 4:02pm Venous insufficiency of both lower extremities inactive May 16, 2 025 4:02pm Vitamin D deficiency inactive Favian latham 2024 4:02pm Atrial fibrillation deleted Robertua ry 2024 4:02pm Debility acute May 30, [...] acute June 6:43pm [facility]oid [facility] 20[facility] 6:43pm Restless leg syndrome chronic [...] fibrillation chron ic July 26, 2024 11:15am [facility] Work Phone: 1(501) 381-281301-05-2025 NoteHNO ID: [id number] Author: DANUTA GALVAN RN Service: Care Management Author Type: Registered Nurse Type: Care Mgt Progress Note Filed: 05/16/2024 12:25 Note Text: CARE MANAGEMENT DISCHARGE NOTE SERVICE DATE: May 16, 2024 SERVICE TIME: 12:24 PM Admission Date: 05/11/2024 LOS: 5 days Discharge Information Row Name Admission (Current) from 05/11/2024 in [place] [id number] Rehab Facility Agency [facility] Phone# Discharge today to [facility] for [place]. Will send discharge paperwork. Nurse has report number. SIGNATURE: Danuta Galvan RN PATIENT NAME: Jatin Solomon DATE: May 16, 2024 TIME: 12:24 [facility]01-05-2025 NoteHNO ID: [id number] Author: TRUDI BURGOS MD Service: Neurology Stroke Author Type: Resident Type: Progress Notes Filed: 05/16/2024 09:50 Note Text: Documentation Query Please clarify the diagnosis associated with the clinical indicators for this patient Hypophosphatemia not present on admission Plan: -Replenish as needed This document will become part of the patient's medical record. Trudi Burgos MD Neurology PGY-3 [id number] 05/16/2024 9:49 [facility]01-04-2025 NoteHNO ID: [id number] Author: CARI WONG MD, PhD Service: Neurology [...] touch COORDINATION: Finger-to- nose-finger intact bilaterally and Goua-ot-slzb intact bilaterally GAIT: Not assessed DATA: Diagnostic [...] hemorrhage (HCC) (POA: Yes) Current use of manager long term care anticoagulation (POA: Yes) Restless leg syndrome (POA: [...] Losartan 25mg daily Atenolol 25mg BID Continue PRODUCER Ropinorole PT/OT following - patient skilled for SNF (plan for D/C Tuesday 05/16) Lines, Drains, and Airways Line Duration Periph (more content not included)...[facility]01-03-2025 Nurse Note* Damari Wiggins RN - 05/14/2024 [...] By Damari Wiggins RN In Department: CARDIOLOGY [facility]01-03-2025 Nurse Note* Damari Wiggins RN - 05/14/2024 [...] RN In Department: CARDIOLOGY documented in this encounterSelect Medical [facility]01-03-2025 NoteHNO ID: [id number] Author: CARI WONG MD, PhD Service: Neurology [...] touch COORDINATION: Finger-to- nose-finger intact bilaterally and Gdiy-mo-eqtk intact bilaterally GAIT: Not assessed DATA: Diagnostic [...] hemorrhage (HCC) (POA: Yes) Current use of manager long term care anticoagulation (POA: Yes) Restless leg syndrome (POA: Yes) Obesity, Class I, BMI 30-34.9 (POA: Status not on file) Malnutrition of mild degree (HCC) (POA: Yes) Assessment and Plan: Malnutrition Diagnosis supported by Registered Dietitian:Mild Protein-Calorie Malnutrition Based on: Insufficient Energy Intake Assessment: I have reviewed the result of the m (more content not included)... [facility]01-02-2025 NoteHNO ID: [id number] Author: TRUDI BURGOS MD Service: Neurology Stroke [...] Cari Wong. Trudi Burgos MD Neurology PGY-3 [id number] 05/13/2024 4:04 [facility]01-02-2025 NoteHNO ID: [id number] Author: VANESA MANCIA RDMS Service: ? Author Type: Rehab Services Aide Type: Progress Notes Filed: 05/13/2024 14:33 Note [...] PATIENT PRESENTS WITH AN IMPLANTABLE OR ATTACHED CLOTHES SEPARATOR: No RADIOLOGY DEPARTMENT: Ultrasound PERIPHERAL IV DATA: Not applicable SIGNED BY: Vanesa Mancia RDMS May 13, 2024 2:33 [facility]01-02-2025 NoteHNO ID: [id number] Author: FABY OROZCO APRN.CNP Service: Neurosurgery Author Type: Nurse Practitioner Type: Progress Notes Filed: 05/13/2024 13:02 Note Text: SERVICE DATE: 05/13/2024 SERVICE TIME: 1:02 PM NEUROSURGERY PROGRESS NOTE Please page [phone] after 6 PM and on weekends Subjective [...] Yes. 5. Restraints No. 6. Last BM PRODUCER Assessment AND Plan Active Hospital Problems as of 05/13/2024 Noted - Resolved POA Hospital Essential (primary) hypertension 03/04/2005 - Present Yes Overview 05/13/2014: Home BP Cuff Validated. Home BP: 192/74 Office BP: 189/63 Current Assessment AND Plan Continue atenolol 25 mg daily SBP < 160 > 90 mmhg NEL (obstructive sleep apnea) 10/16/2011 - Present Yes Overview [facility] Current Assessment AND Plan CPAP HS PAF (paroxysmal atrial fibrillation) ([facility]) 10/20/2013 - Present Yes Current Assessment AND [...] 48 hours * (Principal) SAH (subarachnoid hemorrhage) ([facility]) 05/11/2024 - Present Yes Current Assessment AND [...] SQH for 48 hours Current use of fpc anticoagulation 05/11/2024 - Present Yes Current Assessment [...] Prophylaxis/Anticoagulants 05/12/24 0715 activity - mobilize patient (ky,ar) 05/11/241829 vte pharmacologic prophylaxis contraindicated (ky,ar) 05/11/241829 pneumatic compression stockings (ky,ar) VTE Prophylaxis: Contraindicated for 48 hours Plan of care discussed with: Provider, RN, Patient SIGNATURE: Faby Orozco APRN.CNP PATIENT NAME: Jatin Solomon DATE: May 13, 2024 TIME: 1:02 [facility]01-02-2025 NoteHNO ID: [id number] Author: ROMAIN GIANG ? Service: Pharmacy Author Type: Plate Setter Type: Plan of Care Filed: 05/13/2024 12:56 Note Text: Insurance investigation completed Patient has active prescription insurance: No - Patient is self-pay, opted out of Part D Insurance loaded into [place]: None located at this time Test claim was completed to verify insurance is active: Unsuccessful Any questions, please reach out to your medication access director.[facility]01-02-2025 NoteHNO ID: [id number] Author: SHAMAR DAVIS RPh Service: Pharmacy Author Type: Pharmacist Type: Plan of Care Filed: 05/14/2024 09:28 Note Text: PHARMACY MEDICATION REVIEW Patient Name: Jatin Solomon : 1935 The following medications were updated within the PRODUCER medication list: Medications ADDED to PRODUCER medication list [place] 7.5 Mag Ox Ropinirole Medications CHANGED on PRODUCER medication list Atenolol Medications REMOVED from PRODUCER medication list Calcium Additional comments: fills with 2 pharmacies ; did have furosemide 40mg BID filled in November, but nothing more recent The below information represents the best possible medication history: Yes Medication history completed by: Pharmacist: Shamar Davis RPh Source of history: Pharmacy records: [facility] Medication nonadherence identified: Unable to assess Reconciliation completed: Yes All PRODUCER medications addressed by LIP Patient interested in Bedside Delivery Services or using OP Pharmacy at discharge? Unable to assess Preferred outpatient pharmacy: e- [facility] [place] [address] - [address] [facility] - [phone] [address] e- [facility] [id number] - [place] [address] - [address] - [phone] [address] e- [facility] [place] [address] - [address] [facility] - [phone] Allergies: Sutures Itching Actonel [Risedronat* GI Upset Comment:States had GI bleed Adhes. Nzlr-Zmni-Sh* Beets Rash Comment:raised injection site when allergy [...] daily as directed. Facility-Administered Medications: None Shamar Davis [facility] NoteHNO ID: [id number] Author: SUSAN JOHNSON MD Service: Neurosurgery Author Type: Resident Type: Progress Notes Filed: 05/12/2024 10:06 Note Text: Neurosurgery Inpatient Progress Note Interval HPI: rCTH reviewed, slight increase in SAH/ICH CTA negative [...] (Src) 99 (Oral) Resp 20 Ht 5' 0 (1.52m) Wt 163 lb 12.8 oz (74.3kg) SpO2 98% BMI 31.99 kg/(m2). O2 Therapy: Room Air, Liters: 2.0 A/P: 89 year old RHW w/PMH HTN, HLD, pAF on warfarin, NEL, osteoporosis, secondary hypothyroidism transferred from [facility] May 11, 2024 with RF cortical SAH/ICH. Differential: Hemorrhagic conversion of ischemic stroke vs CAA vs underlying aneurysm/vascular malformation - SDU care - SBP <160 - Admission labs including coags; f/u INR after KCentra - No acute neurosurgical intervention at this time - MRI wwo pending - Stroke c/s - SCDs only, hold [facility] x48 hrs - PT/OT Staff: Dr. Kim Signature: Susan Johnson MD PGY-4, Neurological Surgery Pager: [phone] Neurosurgery licensed bondsman: [id number] 10:04 AM 05/12/24 Please page [phone] on weekends and after [facility]pm[facility] NoteHNO ID: [id number] Author: CLINT BERMUDEZ APRN.CNP Service: Neurology ICU [...] ICU Consent Complete?: No ICU Code Status History assess/Full code by default: No, active code [...] Patient/ designee ICU Disposition: ICU Disposition-POC Detail: Yes-Automotive Service Cashier notified Prevention: Line Status: None Patricio Status: [...] Intracranial hemorrhage (HCC)- (present on admission) see SAH: for initial plan Cardiovascular PAF (paroxysmal atrial fibrillation) (HCC)- (present on admission) home regimen: atenolol 25mg PLAN EKG echo resume beta sera as necessary Essential (primary) hypertension- (present on admission) resume losartan starting at 50mg daily - increase as necessary Pulmonary NEL (obstructive sleep apnea)- (present on admission) CPAP Other Current use of manager long term care anticoagulation- (present on admission) heparin for pAF, now on hold Kcentra ordered on arrival Exogenous Class 1 Obesity Medication and Non-Pharmacologic VTE Prophylaxis/Anticoagulants 05/12/24 0715 activity - mobilize patient (ky,ar) 05/11/24 1830 vte pharmacologic prophylaxis contraindicated (ky,ar) 05/11/24 1830 pneumatic compression stockings ([place]) VTE Prophylaxis: Contraindicated ICH/SAH Plan of care discussed with: Provider, RN, Patient SIGNATURE: Clint Bermudez APRN.CNP PATIENT NAME: Jatin Solomon DATE: May 12, 2024 TIME: 7:26 [facility]01-01-2025 NoteHNO ID: [id number] Author: VEGA VELASQUEZ RT(Peter) Service: Radiology Author Type: [employer] Worker Type: Progress Notes Filed: 05/12/2024 05:05 Note [...] PATIENT PRESENTS WITH AN IMPLANTABLE OR ATTACHED CLOTHES SEPARATOR: No RADIOLOGY DEPARTMENT: CT; Exam(s) Completed: Brain PERIPHERAL IV DATA: Not applicable SIGNED BY: RT Tello(R) May 12, 2024 5:05 [facility]12-31-2024 NoteHNO ID: [id number] Author: JESIKA HALL RT(Peter) Service: Radiology Author [...] PATIENT PRESENTS WITH AN IMPLANTABLE OR ATTACHED CLOTHES SEPARATOR: No ALLERGIES: Reviewed and unchanged CONTRAST ALLERGY: [...] CTA Neck SIGNATURE: RT Delroy(R) PATIENT NAME: Jatin Solomon DATE: May 11, 2024 TIME: 8:47 [facility]12-31-2024 NoteHNO ID: [id number] Author: NORMA MOON APRN.CNP Service: ? Author Type: Nurse Practitioner Type: Progress Notes Filed: 05/11/2024 20:04 Note Text: CRITICAL CARE TRANSPORT MEDICAL CONTROL CONSULT NOTE Patient Name: Jatin Solomon Service Date: May 11, 2024 Referring Facility: [facility] Accepting Facility: [facility] REASON FOR TRANSPORT: higher level neurosurgical care REASON FOR CONSULT: BP management CCT MEDICAL CONTROL CONSULT SUMMARY: History, physical exam findings, and available background patient information from [facility] Transport Nurse were reviewed at the time of consult. Pertinent additional information was reviewed as follows: [facility] transport request log In brief, Jatin Solomon is a 89 year old female with a history, known at time of consult, significant for afib on coumadin who presented to [facility] for evaluation of left arm weakness. CT + for IPH, treated with vitamin K and cardene infusion PLAN: Multiple factors considered including: patient history/condition/trajectory/stability, referring and receiving destinations, duration of transport time, medications and therapies available during transport, patient safety, as well as crew capabilities. Orders given for: cardene titration Plan of care and orders confirmed and read back via telephone with [facility] Transport architecture faculty member, David Campos RN SIGNATURE: Norma Moon APRN.CNP Acute Care Nurse Practitioner Critical [facility] History of Present illness Narrative* Norma Moon APRN.CNP - 05/11/2024 5:19 PM EST Images from the original note were not included. CRITICAL CARE TRANSPORT MEDICAL CONTROL CONSULT NOTE Patient Name: Jatin Solomon Service Date: May 11, 2024 Referring Facility: [facility] Accepting Facility: [facility] REASON FOR TRANSPORT: higher level neurosurgical [...] for afib on coumadin who presented to [facility] for evaluation of left arm weakness. [...] read back via telephone with CCT Transport architecture faculty member, David Campos RN SIGNATURE: Norma Moon APRN.CNP Acute Care Nurse Practitioner Critical Care Transport [facility] Discharge summary Author Duglas Shields [facility] [place] [facility] May 12, 2023 10:03am Note Date/Time May 12, 2023 7: 50am [facility] Medical Records Department [address] [place] [id number] Emergency Department Summary 05/12/23 MR#: [id number] Acct: [id number] Name: JOYCE SOLOMON Rep #:[id number] : [...] and ended up testing positive for COVID. Kim has no urinary symptoms. [facility] Medical History (Updated 05/12/23 @ [...] mg/mL subcutaneous syringe (Prolia) 60 mg subcut [id number] osteoporosis 10/08/19 [History Last Taken 08/24/21] calcium [...] History adopted: No household members: [facility] number of children: 2 current occupational status: retired current occupational exposures/hazards: No pets and animals: No leisure activities: reading and other history of recent travel: Yes (concert in [place]) Smoking Status: Never smoker alcohol intake: never [...] (Auto) 65.0 Lymph % (Auto) 13.0 L [place] % (Auto) 19.2 H Eos % (Auto) [...] Clarity Clear Urine pH 8.0 Ur Specific Arnold 1.010 Urine Protein 30 H Urine Glucose [...] Prolia 60 mg/mL syringe 60 mg SC [id number] Patient Comments: due February Rx Instructions: due [...] warfarin 3 mg Tablet 3 mg PO [facility] Primary Care Provider: Doyle Swenson Referrals: Doyle Swenson MD [Primary Care Provider] - 3-5 Days if not improving Disposition Disposition: Home, Self Care What to do if you have Problems For any increased pain, shortness of breath, bleeding, nausea or vomiting, chestpain, or any unexpected problems, contact your Primary Care Provider. Call [facility] ([phone]) or report to the closest Emergency Room. Call 911 if necessary. 05/12/23 1003 <Electronically signed by Duglas Shields MD> Cosigner Signature (if applicable): CC: Dr. Doyle Swenson MD ~ Signed [facility] Work Phone: Evaluation note* Diagnosis Onset Date Resolution Status Dyspnea on exertion chronic Essential (primary) hypertension chronic Paroxysmal atrial fibrillation chronic Hematemesis resolved [facility] Work Phone: Evaluation note* Diagnosis Onset Date Resolution Status Hematemesis resolved [facility] Work Phone: Evaluation note* Diagnosis Onset Date Resolution Status Hematemesis resolved Elevated C-reactive protein (CRP) acute Ileitis acute [facility] Work Phone: Evaluation note* Diagnosis Onset Date Resolution Status Elevated C-reactive protein (CRP) acute Ileitis acute Elevated C-reactive protein (CRP) acute [facility] Work Phone: Evaluation note* Diagnosis Onset Date Resolution Status Elevated C-reactive protein (CRP) acute Ileitis acute Elevated C-reactive protein (CRP) acute Dyspnea on exertion chronic Essential (primary) hypertension chronic Paroxysmal atrial fibrillation [facility] Work Phone: Evaluation note* Diagnosis Onset Date Resolution Status Elevated C-reactive protein (CRP) acute Dyspnea on exertion chronic Essential (primary) hypertension chronic Paroxysmal atrial fibrillation [facility] Work Phone: Evaluation note* Diagnosis Onset Date Resolution Status Elevated C-reactive protein (CRP) acute Dyspnea on exertion chronic Essential (primary) hypertension chronic Paroxysmal atrial fibrillation chronic Debility acute Intractable low back pain ac [place] Unable to ambulate acute [facility] Work Phone: Evaluation note* Diagnosis Onset Date Resolution Status Elevated C-reactive protein (CRP) acute Dyspnea on exertion chronic Essential (primary) hypertension chronic Paroxysmal atrial fibrillation chronic Debility acute Intractable low back pain ac [place] Unable to ambulate acute Atrial fibrillation acute Compression fracture of L3 vertebra acute Debility acute Edema acute Hypomagnesemia acute Intractable low back pain ac [place] Iron deficiency anemia acute Osteoporosis acute Restless leg syndrome acute Vitamin D deficiency acute Hypertension [facility] Work Phone: Evaluation note* Diagnosis Onset Date Resolution Status Elevated C-reactive protein (CRP) acute Dyspnea on exertion chronic Essential (primary) hypertension chronic Paroxysmal atrial fibrillation chronic Debility acute Intractable low back pain ac [place] Unable to ambulate acute Atrial fibrillation acute Compression fracture of L3 vertebra acute Debility acute Edema acute Hypomagnesemia acute Intractable low back pain ac [place] Iron deficiency anemia acute Osteoporosis acute Restless leg syndrome acute Vitamin D deficiency acute Hypertension chronic Atrial fibrillation acute Compression fracture of L3 vertebra acute Debility acute Edema acute Hypomagnesemia acute Intractable low back pain ac [place] Iron deficiency anemia acute Osteoporosis acute Restless leg syndrome acute Vitamin D deficiency acute Hypertension [facility] Work Phone: Evaluation note* Diagnosis [...] pain re solved Lower back pain acute [facility] Work Phone: Evaluation note* Diagnosis Onset [...] vertebra acute Intractable low back pain ac [place] Lower back pain acute Supratherapeutic INR acute [facility] Work Phone: Evaluation note* Diagnosis Onset [...] Debility acute Intractable low back pain ac [place] Lower back pain acute Supratherapeutic INR acute [facility] Work Phone: Evaluation note* Diagnosis Onset [...] back pain resolved Supratherapeutic INR resolve d [facility] Work Phone: Evaluation noteNo assessment information available [facility] Work Phone: Evaluation note* Diagnosis Onset Date Resolution Status Dyspnea on exertion chronic Essential (primary) hypertension chronic Paroxysmal atrial fibrillation chronic [facility] Work Phone: Evaluation note* Diagnosis SAH (subarachnoid hemorrhage) (HCC)- Primary Subarachnoid hemorrhage Intracranial hemorrhage (HCC) Unspecified intracranial hemorrhage SAH (subarachnoid hemorrhage) (HCC) Subarachnoid hemorrhage Intracranial hemorrhage (HCC) Unspecified intracranial hemorrhage NEL (obstructive sleep apnea) Obstructive sleep apnea (adult) (pediatric) PAF (paroxysmal atrial fibrillation) (HCC) Atrial fibrillation Current use of manager long term care anticoagulation Long-term (current) use of anticoagulants Restless [...] Unspecified essential hypertension [facility] Diagnosis Altered mental status, unspecified altered mental status type- Primary UTI (urinary tract infection), bacterial documented in this encounter [facility] Work Phone: Evaluation note* Diagnosis SAH (subarachnoid hemorrhage) (HCC)- Primary Subarachnoid hemorrhage Intracranial hemorrhage (HCC) Unspecified intracranial hemorrhage SAH (subarachnoid hemorrhage) (HCC) Subarachnoid hemorrhage Intracranial hemorrhage (HCC) Unspecified intracranial hemorrhage NEL (obstructive sleep apnea) Obstructive sleep apnea (adult) (pediatric) PAF (paroxysmal atrial fibrillation) (HCC) Atrial fibrillation Current use of fpc anticoagulation Long-term (current) use of anticoagulants Restless leg syndrome Restless legs syndrome (RLS) Essential (primary) hypertension Unspecified essential hypertension Obesity, Class I, BMI 30-34.9 Obesity, unspecified Malnutrition of mild degree (HCC) Malnutrition of mild degree Essential (primary) hypertension- Primary Unspecified essential hypertension documented in this encounter [facility] note* Diagnosis SAH (subarachnoid hemorrhage) (HCC)- Primary Subarachnoid hemorrhage Intracranial hemorrhage (HCC) Unspecified intracranial hemorrhage SAH (subarachnoid hemorrhage) (HCC) Subarachnoid hemorrhage Intracranial hemorrhage (HCC) Unspecified intracranial hemorrhage NEL (obstructive sleep apnea) Obstructive sleep apnea (adult) (pediatric) PAF (paroxysmal atrial fibrillation) (HCC) Atrial fibrillation Current use of manager long term care anticoagulation Long-term (current) use of anticoagulants Restless leg syndrome Restless legs syndrome (RLS) Essential (primary) hypertension Unspecified essential hypertension Obesity, Class I, BMI 30-34.9 Obesity, unspecified Malnutrition of mild degree (HCC) Malnutrition of mild degree SAH (subarachnoid hemorrhage) (HCC)- Primary Subarachnoid hemorrhage documented [facility]* Diagnosis SAH (subarachnoid hemorrhage) (HCC)- Primary Subarachnoid hemorrhage Intracranial hemorrhage (HCC) Unspecified intracranial hemorrhage SAH (subarachnoid hemorrhage) (HCC) Subarachnoid hemorrhage Intracranial hemorrhage (HCC) Unspecified intracranial hemorrhage NEL (obstructive sleep apnea) Obstructive sleep apnea (adult) (pediatric) PAF (paroxysmal atrial fibrillation) (HCC) Atrial fibrillation Current use of manager long term care anticoagulation Long-term (current) use of anticoagulants Restless leg syndrome Restless legs syndrome (RLS) Essential (primary) hypertension Unspecified essential hypertension Obesity, Class I, BMI 30-34.9 Obesity, unspecified Malnutrition of mild degree (HCC) Malnutrition of mild degree PAF (paroxysmal atrial fibrillation) (HCC)- Primary Atrial fibrillation Essential (primary) hypertension- Primary Unspecified essential hypertension [facility] Additional Instructions Ice or cool compresses to your chest wall. Tylenol for pain. Follow-up if not improving or return if a lot worse. Your chest x-ray today showed old rib fractures. But no acute process. No collapsed lung. No acute rib fractures. [facility] Work Phone: Hospital Discharge instructions Additional Instructions Discharge home alone 07/26/2024, [facility] PT/OT/SN, Hospital Bed. Hospital Bed: Patient requires a hospital bed due to needing frequent changes in position to alleviate pain, prevent ongoing pressure areas, assist in healing of current pressure areas, prevent aspiration or due to respiratory condition that is not feasible in an ordinary bed.[facility] Work Phone: Hospital Discharge instructions* Attachments The following attachments cannot be sent through Care Everywhere. * Urinary Tract Infection, Adult ED (Citizen [place]) [facility] Work [facility]: Reason for referral (narrative)* Outpatient Procedure (Routine) - Authorized Specialty Diagnoses / Procedures Referred By Contaguilar t Referred To Contact [facility] Diagnoses PAF (paroxysmal atrial fibrillation) (HCC) Procedures ECG COMPLETE ECG ROUTINE ECG W/LEAST 12 LDS W/I&R Toyin Del Castillo MD [address] [place] [address] [facility] [place] [address] [place] [address] Referral ID Status Reason Start Date Expiration Date Visits Requested Visits Authorized [id number] Authorized Auto-Generat ed Referral 05/14/2024 05/14/2025 1 1 [facility] Chief Complaint and Reason for Visit Chief [...] 4:02pm Acute cystitis with positive culture Robert vazquez 2024 4:02pm Catheter-associated urinary tract infect ion May 16, 2024 4:02pm Daytime somnolence May 16, 2024 4: 02pm Hypomagnesemia May 16, 2024 4: 02pm Urine retention May 16, 2024 4: 02pm Elevated PTHrP level May 16, 2024 4 :02pm Hyperlipidemia May 16, 2024 4: 02pm Hypothyroidism May 16, 2024 4: 02pm Iron deficiency anemia May 16, 2024 4:02pm MCFP (current) use of anticoagulant s May 16, [...] [email or web address] 6:43pm Insomnia June 30, 2024 6:43pm Multiple [...] 4:02pm Acute cystitis with positive culture Robert vazquez 2024 4:02pm Catheter-associated urinary tract infect ion May 16, 2024 4:02pm Daytime somnolence May 16, 2024 4: 02pm Hypomagnesemia May 16, 2024 4: 02pm Urine retention May 16, 2024 4: 02pm Elevated PTHrP level May 16, 2024 4 :02pm Hyperlipidemia May 16, 2024 4: 02pm Hypothyroidism May 16, 2024 4: 02pm Iron deficiency anemia May 16, 2024 4:02pm MCFP (current) use of anticoagulant s May 16, [...] WORSENING CONFUSI ON September 03, 2024 12:09pm 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 September 06, 2024 4 :00am [...] WORSENING CONFUSI ON September 03, 2024 12:09pm 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 September 06, 2024 4 :00am [...] WORSENING CONFUSI ON September 03, 2024 12:09pm 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 September 06, 2024 4 :00am [...] June 30, 2024 6:43pm Essential (primary) hypertension 5 6:43pm Insomnia June 30, 2024 6:43pm Obstructive [...] WORSENING CONFUSI ON September 03, 2024 12:09pm 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 September 06, 2024 4 :00am [...] WORSENING CONFUSI ON September 03, 2024 12:09pm 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 September 06, 2024 4 :00am [...] WORSENING CONFUSI ON September 03, 2024 12:09pm 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 September 06, 2024 4 :00am [...] WORSENING CONFUSI ON September 03, 2024 12:09pm 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 September 06, 2024 4 :00am [...] WORSENING CONFUSI ON September 03, 2024 12:09pm 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 September 06, 2024 4 :00am [...] Yes July 24, 2021 8:58am Power of Client Delivery Specialist Yes July 24 8:58am Advance Directive Response Recorded Date/ Time Name of Medical Power of Client Delivery Specialist daughter Martha and didier Mercado July 24, 2021 8:58am Advance Directives Yes October 04 1:23pm Living Will Yes October 04, 2021 1 :23pm Power of Client Delivery Specialist Yes October 04, 2021 1:23pm Advance Directive Response Recorded Date/ Time Advance Directives Yes October 04 1:23pm Living Will Yes October 04, 2021 1 :23pm Power of Client Delivery Specialist Yes October 04, 2021 1:23pm Advance Directive Response Recorded Date/ Time Advance Directives Yes October 04 1:23pm Living Will No February 09 5:05pm Power of Client Delivery Specialist No February 09 5:05pm Advance Directive Response Recorded Date/ Time Name of Medical Power of Client Delivery Specialist Martha Kirt Rogelio Gotti February 09, 2022 10:05pm Advance Directives Yes October 04 1:23pm Living Will Yes February 09 10:05pm Power of Client Delivery Specialist Yes February 09 10:05pm Advance Directive Response Recorded Date/ Time Name of Medical Power of Client Delivery Specialist Martha Kirt Rogelio Gotti February 09, 2022 10:05pm Name of Medical Power of Client Delivery Specialist Martha Hdz, daughter February 12, 2022 10:23am Advance Directives Yes October 04 1:23pm Living Will Yes February 12 10:23am Power of Client Delivery Specialist Yes February 12 10:23am Advance Directive Response Recorded Date/ Time Name of Medical Power of Client Delivery Specialist Martha Kirt Rogelio Gotti February 09, 2022 10:05pm Name of Medical Power of Client Delivery Specialist Martha Hdz, daughter February 12, 2022 10:23am Name of Medical Power of Client Delivery Specialist Martha Hdz, daughter February 18, 2022 9:35am Advance Directives Yes October 04 1:23pm Living Will Yes February 18 9:35am Power of Client Delivery Specialist Yes February 18, 2022 9:35am Advance Directive Response Recorded Date/ Time Name of Medical Power of Client Delivery Specialist Kizzy Herrmannallison Gotti February 09, 2022 9:05pm Name of Medical Power of Client Delivery Specialist Martha Hdz, daughter February 12, 2022 9:23am Name of Medical Power of Client Delivery Specialist Martha Hdz, daughter February 18, 2022 8:35am Advance Directives Yes October 04 12:23pm Living Will Yes February 18 8:35am Power of Client Delivery Specialist Yes February 18, 2022 8:35am Advance Directive Response Recorded Date/ Time Name of Medical Power of Client Delivery Specialist Rogelio Herrmann February 09, 2022 9:05pm Name of Medical Power of Client Delivery Specialist Martha Hdz, daughter February 12, 2022 9:23am Name of Medical Power of Client Delivery Specialist Martha Hdz, daughter February 18, 2022 8:35am Name of Medical Power of Client Delivery Specialist svetlana gotti-son April 10, 2022 6:40pm Advance Directives Yes October 04 12:23pm Living Will Yes April 10 6:40pm Power of Client Delivery Specialist Yes April 10, 2022 6:40pm Advance Directive Response Recorded Date/ Time Name of Medical Power of Client Delivery Specialist Rogelio Herrmann February 09, 2022 9:05pm Name of Medical Power of Client Delivery Specialist Martha Hdz, daughter February 12, 2022 9:23am Name of Medical Power of Client Delivery Specialist Martha Hdz, daughter February 18, 2022 8:35am Name of Medical Power of Client Delivery Specialist martha yung - daughter April 10, 2022 10:43pm Advance Directives Yes October 04 12:23pm Living Will Yes April 10 022 10:43pm Power of Client Delivery Specialist Yes April 10, 2022 10:43pm Advance Directive Response Recorded Date/ Time Name of Medical Power of Client Delivery Specialist Rogelio Herrmann February 09, 2022 9:05pm Name of Medical Power of Client Delivery Specialist Martha Hdz, daughter February 12, 2022 9:23am Name of Medical Power of Client Delivery Specialist Martha Hdz, daughter February 18, 2022 8:35am Name of Medical Power of Client Delivery Specialist svetlana - leydi velásquezine - daughter April 10, 2022 10:43pm Advance Directives Yes October 04 12:23pm Living Will No May 18 4:38pm Power of Client Delivery Specialist No May 18 4:38pm Advance Directive Response Recorded Date/ Time Advance Directives Yes October 04 2 1:23pm Living Will No May 18 3 5:38pm Power of Client Delivery Specialist No May 18 5:38pm Advance Directive Response Recorded Date/ Time Advance Directives Yes October 04 2 12:23pm Living Will No May 18 3 4:38pm Power of Client Delivery Specialist No May 18 4:38pm Advance Directive Response Recorded Date/ Time Name of Medical Power of Client Delivery Specialist martha hdz / daughter May 12, 2023 7:36am Advance Directives Yes October 04 12:23pm Living Will Yes May 12 7:36am Power of Client Delivery Specialist Yes May 12 7:36am Advance Directive Response Recorded Date/ Time Advance Directives Yes October 04 1:23pm Living Will Yes May 12 8:36am Power of Client Delivery Specialist Yes May 12 8:36am Name of Medical Power of Client Delivery Specialist martha hdz / daughter May 12, 2023 8:36am Advance Directive Response Recorded Date/ Time Advance Directives Yes October 04 1:23pm Living Will Yes May 12 8:36am Power of Client Delivery Specialist Yes May 12 8:36am Date Activated Date [...] Yes November 03, 2023 6:47pm Power of Client Delivery Specialist Yes November 02 6:47pm Living Will Yes May 11 12:52pm Power of Client Delivery Specialist Yes May 11, 2024 12:52pm Name of Medical Power of Client Delivery Specialist martha May 11, 2024 12:52pm Living Will Yes May 18 10:49am Power of Client Delivery Specialist Yes Xin 7th, 2 025 10:49am Name of Medical Power of Client Delivery Specialist Martha Hdz, daughter May 18, 2024 10:49am Living Will Yes May 31 4:39pm Power of Client Delivery Specialist Yes May 31, 2024 4:39pm Name of Medical Power of Client Delivery Specialist Martha Hdz, daughter May 31, 2024 4:39pm Living Will Yes July 01 025 5:00pm Power of Client Delivery Specialist Yes July 01, 2024 5:00pm Name of Medical Power of Client Delivery Specialist Martha Hdz, daughter July 01, 2024 5:00pm Living Will No June 26 025 1:31pm Power of Client Delivery Specialist No June 26, 2024 1:31pm Advance Directives Yes October 04 1:23pm Advance Directive Response Recorded Date/ Time Living Will Yes November 03, 2023 6:47pm Do you have a Healthcare Pow er of Client Delivery Specialist? Yes November 03, 2023 6:47pm Living Will Yes May 11 12:52pm Do you have a Healthcare Pow er of Client Delivery Specialist? Yes May 11, 2024 12:52pm Name of Medical Power of Client Delivery Specialist martha May 11, 2024 12:52pm Living Will Yes May 18 10:49am Do you have a Healthcare Pow er of Client Delivery Specialist? Yes May 18, 2024 10:49am Name of Medical Power of Client Delivery Specialist Martha Hdz, daughter May 18, 2024 10:49am Living Will Yes May 31 4:39pm Do you have a Healthcare Pow er of Client Delivery Specialist? Yes May 31, 2024 4:39pm Name of Medical Power of Client Delivery Specialist Martha Hdz, daughter May 31, 2024 4:39pm Living Will Yes July 01 025 5:00pm Do you have a Healthcare Pow er of Client Delivery Specialist? Yes July 01, 2024 5:00pm Name of Medical Power of Client Delivery Specialist Martha Hdz, daughter July 01, 2024 5:00pm Living Will Yes August 30, 2024 10:27am Do you have a Healthcare Pow er of Client Delivery Specialist? Yes August 30, 2024 10:27am Name of Medical Power of Client Delivery Specialist ASHLEY THOMAS August 30, 2024 10:27am Living Will No February 15th, 2 025 1:31pm Do you have a Healthcare Pow er of Client Delivery Specialist? No June 26, 2024 1:31pm Advance Directives Yes October 04 1:23pm Advance Directive Response Recorded Date/ Time Living Will Yes November 03, 2023 6:47pm Do you have a Healthcare Pow er of Client Delivery Specialist? Yes November 03, 2023 6:47pm Living Will Yes May 31 4:39pm Do you have a Healthcare Pow er of Client Delivery Specialist? Yes May 31, 2024 4:39pm Name of Medical Power of Client Delivery Specialist Martha Hdz, daughter May 31, 2024 4:39pm Living Will Yes July 01 5:00pm Do you have a Healthcare Pow er of Client Delivery Specialist? Yes July 01, 2024 5:00pm Name of Medical Power of Client Delivery Specialist Martha Hdz, daughter July 01, 2024 5:00pm Living Will Yes August 30, 2024 2:42pm Do you have a Healthcare Pow er of Client Delivery Specialist? Yes August 30, 2024 2:42pm Name of Medical Power of Client Delivery Specialist ASHLEY THOMAS August 30, 2024 2:42pm Do you have a Healthcare Pow er of Client Delivery Specialist? Yes September 01, 2024 3:03am Do you have a Healthcare Pow er of Client Delivery Specialist? Yes October 01, 2024 4:22pm Living Will No June 26 025 1:31pm Do you have a Healthcare Pow er of Client Delivery Specialist? No June 26, 2024 1:31pm Do you have a Healthcare Pow er of Client Delivery Specialist? Yes October 03, 2024 7:05pm Advance Directives Yes October 04 1:23pm Advance Directive Response Recorded Date/ Time Living Will Yes November 03, 2023 6:47pm Do you have a Healthcare Pow er of Client Delivery Specialist? Yes November 03, 2023 6:47pm Living Will Yes May 31 4:39pm Do you have a Healthcare Pow er of Client Delivery Specialist? Yes May 31, 2024 4:39pm Name of Medical Power of Client Delivery Specialist Martha Hdz, daughter May 31, 2024 4:39pm Living Will Yes July 01 5:00pm Do you have a Healthcare Pow er of Client Delivery Specialist? Yes July 01, 2024 5:00pm Name of Medical Power of Client Delivery Specialist Martha Hdz, daughter July 01, 2024 5:00pm Living Will Yes August 30, 2024 2:42pm Do you have a Healthcare Pow er of Client Delivery Specialist? Yes August 30, 2024 2:42pm Name of Medical Power of Client Delivery Specialist DAUGHTER MARTHA August 30, 2024 2:42pm Do you have a Healthcare Pow er of Client Delivery Specialist? Yes September 01, 2024 3:03am Do you have a Healthcare Pow er of Client Delivery Specialist? Yes October 01, 2024 4:22pm Living Will No June 26 1:31pm Do you have a Healthcare Pow er of Client Delivery Specialist? No June 26, 2024 1:31pm Do you have a Healthcare Pow er of Client Delivery Specialist? Yes October 04, 2024 2:54am Advance Directives Yes October 04 1:23pm Date Activated Date Inactivated Comments 05/12/2024 7:20 AM Question Answer Comments Full Code Order Discussed With: Patient Advance Directive Response Recorded Date/ Time Living Will Yes November 03, 2023 6:47pm Do you have a Healthcare Pow er of Client Delivery Specialist? Yes November 03, 2023 6:47pm Living Will Yes July 01 5:00pm Do you have a Healthcare Pow er of Client Delivery Specialist? Yes July 01, 2024 5:00pm Name of Medical Power of Client Delivery Specialist Martha Hdz, daughter July 01, 2024 5:00pm Living Will Yes August 30, 2024 2:42pm Do you have a Healthcare Pow er of Client Delivery Specialist? Yes August 30, 2024 2:42pm Name of Medical Power of Client Delivery Specialist DAUGHTER MARTHA August 30, 2024 2:42pm Do you have a Healthcare Pow er of Client Delivery Specialist? Yes September 01, 2024 3:03am Do you have a Healthcare Pow er of Client Delivery Specialist? Yes October 01, 2024 4:22pm Do you have a Healthcare Pow er of Client Delivery Specialist? Yes October 04, 2024 2:54am Advance Directives Yes October 04 1:23pm Advance Directive Response Recorded Date/ Time Living Will Yes November 03, 2023 6:47pm Do you have a Healthcare Pow er of Client Delivery Specialist? Yes November 03, 2023 6:47pm Living Will Yes July 01 5:00pm Do you have a Healthcare Pow er of Client Delivery Specialist? Yes July 01, 2024 5:00pm Name of Medical Power of Client Delivery Specialist Martha Hdz, ashley July 01, 2024 5:00pm Living Will Yes August 30, 2024 2:42pm Do you have a Healthcare Pow er of Client Delivery Specialist? Yes August 30, 2024 2:42pm Name of Medical Power of Client Delivery Specialist ASHLEY THOMAS August 30, 2024 2:42pm Do you have a Healthcare Pow er of Client Delivery Specialist? Yes September 01, 2024 3:03am Do you have a Healthcare Pow er of Client Delivery Specialist? Yes October 01, 2024 4:22pm Do you have a Healthcare Pow er of Client Delivery Specialist? Yes October 04, 2024 2:54am Do you have a Healthcare Pow er of Client Delivery Specialist? Yes November 17, 2024 1:02pm Name of Medical Power of Client Delivery Specialist Martha Borges November 17, 2024 1:02pm Advance Directives Yes October 04 1:23pm Advance Directive Response Recorded Date/ Time Living Will Yes August 30, 2024 2:42pm Do you have a Healthcare Pow er of Client Delivery Specialist? Yes August 30, 2024 2:42pm Name of Medical Power of Client Delivery Specialist DAUGHTER BONITA DRAPER August 30, 2024 2:42pm Do you have a Healthcare Pow er of Client Delivery Specialist? Yes September 01, 2024 3:03am Do you have a Healthcare Pow er of Client Delivery Specialist? Yes October 01, 2024 4:22pm Do you have a Healthcare Pow er of Client Delivery Specialist? Yes October 04, 2024 2:54am Do you have a Healthcare Pow er of Client Delivery Specialist? Yes November 17, 2024 1:02pm Name of Medical Power of Client Delivery Specialist Martha Shah wyatt November 17, 2024 1:02pm Advance Directives Yes October 04 1:23pm Summary Purpose Reason for Referral Specialty Diagnoses / Procedures Referred By Contac t Referred To Contact CT IMAGING Diagnoses SAH (subarachnoid hemorrhage) (HCC) Procedures CT BRAIN WO IVCON CT HEAD/BRAIN W/O CONTRAST MATERIAL Faby Orozco, JUNIOR ADMINISTRATIVE ASSISTANT.HUMAN RESOURCES BENEFITS MANAGER [address] [place] [address] [place] [address] Referral ID Status Reason Start Date Expiration Date Visits Requested Visits Authorized [id number] New Request Auto-Generat ed Referral 06/13/2024 06/12/2025 [...] Primary Care Provider Activ e Richa Arrieta ROTARY SURFACE GRINDER, ROTARY SURFACE GRINDER-C Attending Provider Active Team Status: Inactive Member [...] Swenson MD Primary Care Provider Activ e MIKE Hernández Attending Provider Active Team Status: Inactive Member [...] Swenson MD Primary Care Provider Acti ve ROTARY SURFACE GRINDER. Aurora Esquivel Attending Provider, Referring Provid er Active Steam Frame Operator Relationship Specialty Start Date End Date Bridget Swenson MD [address] [place] [id number] PCP - General Family Medicine 05/14/24 Cari Wong MD, PhD [address] [place] [address] Cerebrovascular 05/19/24 Steam Frame Operator Relationship Specialty Start Date End Date Bridget Swenson MD [address] [place] [place], [place] [id number] PCP - General Family Medicine 05/14/24 Cari Wong MD, PhD [address] [place] [address] [facility] 05/19/24 Steam Frame Operator Relationship Specialty Start Date End Date Bridget Swenson MD [address] [place], [place] [id number] PCP - General Family Medicine 05/14/24 Cari Wong MD, PhD [address] [place] [address] [facility] 05/19/24 Steam Frame Operator Relationship Specialty Start Date End Date Bridget Swenson MD [address] [place], [place] [id number] PCP - General Family Medicine 05/14/24 Cari Wong MD, PhD [address] [place] [address] [facility] 05/19/24 Team Status: Active Member Role Status [...] ve Start: April 01, 2024 Dr. Tylor Fnag MD Attending Provider Active S tart: April [...] 2024 End: July 26, 2024 Sofia Aguila ROTARY SURFACE GRINDER-C Other Provider Active Sta rt: June 30, 2024 End: July 26, 2024 Monik Crocker NP, ROTARY SURFACE GRINDER-C Other Provider Active Start: June 30, 2024 [...] 2024 End: July 26, 2024 Tarik Sen ROTARY SURFACE GRINDER, ROTARY SURFACE GRINDER-C Attending Provider Active S tart: July 26, [...] August 30, 2024 End: August 31, 2024 Ayseha Choi MD Other Provider Active Start: 2024 [...] 2024 End: August 31, 2024 Dr. Mega Alatmirano MD Other Provider Active Sta rt: August 30, 2024 End: August 31, 2024 Dr. Fya Yañez MD Other Provider Active Start : [...] Provider Active Start: September 02, 2024 Dr. Charlse Sullivan MD Attending Provider Active Start: September [...] October 05, 2024 Dr. Clementine Martel , Other Provider Active St art: October 05, [...] October 06, 2024 Dr. Santino Haas DO Attending Provider Active Start: October 06, 2024 Dr. Santino Haas DO Other Provider Active Start: October 06, 2024 Ayesha Choi MD Other Provider Active Start: Al 2024 Dr. Jean Carlos Fritz MD Other [...] Start: October 08, 2024 Dr. Diana Snow DO Emergency Provider Active Start: October 08, [...] Other Provider Active Start: October 09, 2024 Steam Frame Operator Relationship Specialty Start Date End Date Generic Provider, No Assigned Pcp, [place] [address] PCP - General Faucets Assembler 10/12/24 10/12/24 Bridget Swenson MD [address] [facility] [address] [place], [place] [id number] PCP - General Family Medicine 10/13/24 Team Status: Inactive Member Role Status Dates Dr. Bridget Swenson MD Primary Care Provider Acti ve Start: September 06, 2024 End: September 06, 2024 Zackary GUTIERREZ MD Attending Provider Active Start: September 06, 2024 End: September 06, 2024 Zackary GUTIERREZ MD Referring Provider Active Start: September 06, 2024 End: September 06, 2024 Steam Frame Operator Relationship Specialty Start Date End Date Bridget Swenson MD [address] [place] [address] PCP - General Family Medicine 05/14/24 Steam Frame Operator Relationship Specialty Start Date End Date Bridget Swenson MD [address] [place] [address] PCP - General Family Medicine 05/14/24 Team Status: Inactive Member Role Status Dates Dr. Bridget Swenson MD Primary Care Provider Acti ve Start: September 06, 2024 End: September 06, 2024 Richa Arrieta ROTARY SURFACE GRINDER, ROTARY SURFACE GRINDER-C Attending Provider Active Start: September 06, 2024 [...] End: July 26, 2024 Monik Crocker NP, ROTARY SURFACE GRINDER-C Other Provider Active Start: June 30, 2024 End: July 26, 2024 RM Combs Other Provider Active Start: Aaliyah johnsonrunoa 2024 End: July 26, 2024 Team Status: Inactive Member Role/Relationship Status Dates Dr. Bridget Swenson MD Primary Care Provider Acti ve Start: July 26, 2024 End: July 26, 2024 Dr. Bridget Swenson MD Referring Provider Active Start: July 26, 2024 End: July 26, 2024 Tarik Sen ROTARY SURFACE GRINDER, ROTARY SURFACE GRINDER-C Attending Provider Active S tart: July 26, [...] End: August 31, 2024 Dr. Jean Carlos Frizt MD Other Provider Active Start: August 30, [...] 2024 End: September 06, 2024 Richa Arrieta ROTARY SURFACE GRINDER, ROTARY SURFACE GRINDER-C Attending Provider Active Start: September 06, 2024 [...] 01, 2024 Dr. Ayaz Hinton , DO Attending Provider Active Start: October 01, [...] Choi MD Other Provider Active Start: Ma joel 2024 Dr. Jean Carlos Fritz MD Other Provider Active Start: October 05, 2024 Mary Montalvo MD Other Provider Active Start : October 05, 2024 Dr. Clmeentine Martel , DO Other Provider Active St [...] Ayesha Choi MD Other Provider Active Start: Al 2024 Dr. Jean Carlos Fritz MD Other [...] 2024 End: November 19, 2024 Sho Andino ROTARY SURFACE GRINDER, ROTARY SURFACE GRINDER-C Attending Provider Active Start: November 19, 2024 [...] Provider Active Start: August 31, 2024 Dr. Chrales Sullivan MD Other Provider Active Sta rt: [...] 2024 End: September 06, 2024 Richa Arrieta ROTARY SURFACE GRINDER, ROTARY SURFACE GRINDER-C Attending Provider Active Start: September 06, 2024 [...] 01, 2024 Dr. Ayaz Hinton , DO Attending Provider Active Start: October 01, [...] Ayesha Choi MD Other Provider Active Start: Al joel 2024 Dr. Jean Carlos Fritz MD [...] Ayesha Choi MD Other Provider Active Start: [facility] 2024 Dr. Jean Carlos Fritz MD [...] 2024 End: October 09, 2024 Dr. Santino Mosteller , DO Attending Provider Active Start: October [...] Start: October 08, 2024 Dr. Juan José Saurez , DO Other Provider Active Start: October [...] 2024 End: November 19, 2024 Sho Andino ROTARY SURFACE GRINDER, ROTARY SURFACE GRINDER-C Attending Provider Active Start: November 19, 2024 End: November 19, 2024 Team Status: Inactive Member Role/Relationship Status Dates Dr. Bridget Swenson MD Primary Care Provider Acti ve Start: November 19, 2024 End: November 19, 2024 Sho Andino NP, ROTARY SURFACE GRINDER-C Attending Provider Active Start: November 19, 2024 End: November 19, 2024 Sho Andino NP, ROTARY SURFACE GRINDER-C Referring Provider Active Start: November 19, 2024 End: November 19, 2024 Team Status: Inactive Member Role/Relationship Status Dates Dr. Bridget Swenson MD Primary Care Provider Acti ve Start: December 17, 2024 End: December 17, 2024 Dr. Bridget Swenson MD Referring Provider Active Start: December 17, 2024 End: December 17, 2024 Sho Andino NP, ROTARY SURFACE GRINDER-C Attending Provider Active Start: December 17, 2024 End: December 17, 2024 INFORMATION SOURCE (unrecogn ized section and content) DATE CREATED AUTHOR 05/21/2024 [facility] DATE CREATED AUTHOR AUTHOR'S ORGANIZ ATION 07/08/2024 [facility] DATE CREATED AUTHOR AUTHOR'S ORGANIZ ATION 10/14/2024 [facility] [place] DATE CREATED AUTHOR AUTHOR'S ORGANIZ ATION 11/06/2024 [facility] DATE CREATED AUTHOR AUTHOR'S ORGANIZ ATION 03/23/2025 [facility] Source Comments (unrecognize d section and content) In the event this informatio n is protected by the Federal Confidentiality of Alcohol and Drug Abuse Patient Records regulations: The Federal rules restrict any use of the information to criminally investigate or prosecute any alcohol or drug abuse patient.[facility] the event this information is protected by the Federal Confidentiality of Alcohol and Drug Abuse Patient Records regulations: The Federal rules restrict any use of the information to criminally investigate or prosecute any alcohol or drug abuse patient.[facility] the event this information is protected by the Federal Confidentiality of Alcohol and Drug Abuse Patient Records regulations: The Federal rules restrict any use of the information to criminally investigate or prosecute any alcohol or drug abuse patient.[facility] the event this information is protected by the Federal Confidentiality of Alcohol and Drug Abuse Patient Records regulations: The Federal rules restrict any use of the information to criminally investigate or prosecute any alcohol or drug abuse patient.[facility] the event this information is protected by the Federal Confidentiality of Alcohol and Drug Abuse Patient Records regulations: The Federal rules restrict any use of the information to criminally investigate or prosecute any alcohol or drug abuse patient.[facility] the event this information is protected by the Federal Confidentiality of Alcohol and Drug Abuse Patient Records regulations: The Federal rules restrict any use of the information to criminally investigate or prosecute any alcohol or drug abuse patient.[facility] the event this information is protected by the Federal Confidentiality of Alcohol and Drug Abuse Patient Records regulations: The Federal rules restrict any use of the information to criminally investigate or prosecute any alcohol or drug abuse patient.[facility] the event this information is protected by the Federal Confidentiality of Alcohol and Drug Abuse Patient Records regulations: The Federal rules restrict any use of the information to criminally investigate or prosecute any alcohol or drug abuse patient.[facility] Reason for Visit (unrecogniz ed section and content) Reason Onset Date Comments nsgy DIA-family 05/19/2024 Reason Onset Date Comments nsgy DIA 05/19/2024 Reason Comments Opened In Error Reason Comments Hospital Discharge Reason Comments Altered Mental Status Via AFD from [facility]. Facility RN reports she woke up yelling/flailing. LKW [id number] when staff put her to bed. Mari URBNA met in [facility] Reason Comments Critical Care Transport Specialty Diagnoses / Procedures Referred By Contac t Referred To Contact HOSP INPATIENT Diagnoses ICH Procedures [facility] IP/OBS CARE HIGH MDM 75 MINUTES Hosp [address] [place] [address] Referral ID Status Reason Start Date Expiration Date Visits Re quested Visits Authorized [id number] 1 1 Scheduled Active and Recently Administ [...] BE BASED ON THE PRIMARY CLINICAL RECORDS. [email or web address] provides no warranty or guarantee of the accuracy or completeness of information in this document.
--- NOTE | 2025-04-11 22:35 | ED.VIS.FALL ---
HPI HPI - Fall History of Present Illness Chief Complaint: Fall Narrative Narrative: Patient is a 89-year-old female presenting to the emergency department after a fall. Patient has a past medical history of NEL on CPAP, debility, restless leg syndrome, HTN, paroxysmal a fib, chronic 2 L NC use secondary to COPD. Patient states that she was reaching for something on her nightstand and fell forward striking her head. She denies any loss of consciousness. She is not on any oral anticoagulation. She states she has chronic pain in her back and legs as well as her bilateral shoulders. States that her tailbone hurts and her shoulders hurt more than normal. She denies any neck pain. Denies any back pain worse than normal. [facility] Medical History Chronic pain BiPAP (biphasic positive airway pressure) dependence Aphasia History of hemorrhagic cerebrovascular accident (CVA) with residual deficit Daytime somnolence Elevated PTHrP level Venous insufficiency of both lower extremities Cerebral amyloid angiopathy Hypothyroidism Hyperlipidemia Essential (primary) hypertension Hypertension Lumbar compression fracture Closed compression fracture of L2 vertebra COPD (chronic obstructive pulmonary disease) Wrist fracture, right Shoulder fracture, left Iron deficiency anemia Osteoporosis Vitamin D deficiency Hiatal hernia Restless legs History of stress test HTN (hypertension) Scarlet fever Sleep apnea Pulmonary hypertension Secondary pulmonary arterial hypertension Paroxysmal atrial fibrillation Incomplete right bundle branch block Obstructive sleep apnea Obesity Essential (primary) hypertension Multiple fractures of ribs, left side, initial encounter for closed fracture Hypertensive emergency Pneumonia Limb weakness Difficulty balancing Thyroid disease Migraines Fatigue Arthritis Community acquired pneumonia Home Medications ?Medication ?Instructions ?Recorded ?Last Taken ?Type denosumab 60 mg/mL subcutaneous 60 mg subcut [id number] osteoporosis 10/08/19 08/24/21 History syringe (Prolia) aspirin 81 mg chewable tablet 1 tab PO DAILY Heart health 05/16/24 05/30/24 History losartan 100 mg tablet 100 mg PO DAILY #0 tabs 07/20/24 Unknown Rx metoprolol tartrate 100 mg tablet 100 mg PO BID 30 days #60 tabs 07/20/24 Unknown Rx ascorbic acid (vitamin C) 500 mg 500 mg PO DAILY supplement 08/30/24 Unknown History tablet (C-500) cholecalciferol (vitamin D3) 25 2,000 unit PO DAILY supplement 08/30/24 Unknown History mcg (1,000 unit) capsule rosuvastatin 20 mg tablet 20 mg PO QHS 1 month #30 tabs 08/31/24 Unknown Rx docusate sodium 100 mg capsule 100 mg PO DAILY 10/03/24 Unknown History (Dulcolax Stool Softener (docusate)) ferrous sulfate 325 mg (65 mg 325 mg PO DAILY 10/03/24 Unknown History iron) tablet (iron) acetaminophen 500 mg tablet 1,000 mg (2 x 500 mg) PO Q8H PRN 10/09/24 Unknown Rx PRN pain #0 tabs hydrocodone 7.5 mg-acetaminophen 1 tab PO QHS PRN PRN pain (scale 10/09/24 Unknown Rx 325 mg tablet score 4-6) 7 days #0 tabs hydroxyzine pamoate 25 mg capsule 25 mg PO BID PRN 11/19/24 Unknown History (Vistaril) isosorbide mononitrate 30 mg 30 mg PO QAM #30 tabs 11/19/24 Unknown Rx tablet,extended release 24 hr magnesium 200 mg tablet 400 mg PO QDAY 11/19/24 Unknown History polyethylene glycol 3350 17 4 g PO QDAY 11/19/24 Unknown History gram/dose oral powder (Miralax) pramipexole 1 mg tablet 2 mg PO QHS 11/19/24 Unknown History sertraline 25 mg tablet 25 mg PO QHS 11/19/24 Unknown History simethicone 125 mg capsule (Gas 125 mg PO Q12H PRN 11/19/24 Unknown History Relief (simethicone)) tizanidine 2 mg tablet 2 mg PO Q12H PRN 11/19/24 Unknown History furosemide 40 mg tablet (Lasix) 40 mg PO .COMPLEX #36 tabs 02/21/25 Unknown Rx Allergy/AdvReac Type Severity Reaction Status Date / Time cefazolin (From Ancef) Allergy Severe Swelling Verified 04/11/25 23:19 silk Allergy Intermediate itching Verified 04/11/25 23:19 duloxetine (From Cymbalta) Allergy Unknown Hives Verified 04/11/25 23:19 shellfish derived Allergy Unknown Other Verified 04/11/25 23:19 beet (Beet) Allergy Hives Verified 04/11/25 23:19 cantaloupe Allergy Food Verified 04/11/25 23:19 Allergy eggplant Allergy Hives Verified 04/11/25 23:19 Food Allergies: Uncoded Allergy Itching Verified 04/11/25 23:19 levofloxacin (From Levaquin) Allergy Unknown Verified 04/11/25 23:19 mold Allergy NEEDS Verified 04/11/25 23:19 FOLLOW-UP Penicillins Allergy Unknown Verified 04/11/25 23:19 tomato Allergy Food Verified 04/11/25 23:19 Allergy wheat Allergy Hives Verified 04/11/25 23:19 gabapentin (From Neurontin) AdvReac Other Verified 04/11/25 23:19 meloxicam (From Mobic) AdvReac Other Verified 04/11/25 23:19 oxycodone (From OxyIR) AdvReac Nausea Verified 04/11/25 23:19 risedronate sodium (From AdvReac Other Verified 04/11/25 23:19 Actonel) Family History Other Cancer Diabetes Heart disease Surgical History H/O radiofrequency ablation (RFA) of nerve of lumbar spine History of kyphoplasty Hx of tonsillectomy H/O partial thyroidectomy History of appendectomy History of cholecystectomy Hx of bilateral cataract extraction History of thyroid surgery Hx of appendectomy History of tonsillectomy Hx of cholecystectomy History of thymectomy History of parathyroidectomy Social History adopted: No household members: none [facility] number of children: 2 current occupational status: retired current occupational exposures/hazards: No pets and animals: No leisure activities: reading and other history of recent travel: Yes (concert in [place]) Smoking Status: Never smoker alcohol intake: never substance use type: does not use caffeine: No ROS ROS ED ROS Narrative see HPI EXAM Physical Exam Narrative Exam Narrative: Vital signs: Reviewed General: Alert and oriented x 3. No acute distress. Nontoxic-appearing. Chronically ill-appearing. HEENT: Head is normocephalic. Small cephalhematoma to the posterior occiput. Sinuses nontender, pupils equal round and reactive. Extraocular movements intact. Nares are patent. No septal hematoma. Oropharynx and throat exams normal. No oropharyngeal trauma. Neck: Supple without lymphadenopathy nontender. No midline cervical spinal tenderness to palpation. No step-offs or deformities. Cardiovascular: Regular rate and rhythm, no murmurs. No rubs or gallops. Normal S1 and S2 Respiratory: Clear to auscultation bilaterally. No wheezes, rales, rhonchi. 2 L nasal cannula saturating 94%. Chest: Chest wall is atraumatic and nontender to palpation. There is no crepitus, erythema or ecchymosis. Abdominal: Soft and nontender. Normal bowel sounds. No guarding or rebound. Nonsurgical abdomen Extremities: No midline thoracic or lumbar spinal tenderness to palpation. No step-offs or deformities. Hips are stable and nontender to palpation. Bilateral shoulders are tender to palpation with no obvious deformities. Range of motion of bilateral upper extremities is decreased which patient states is baseline. Otherwise upper extremities are atraumatic and nontender to palpation with normal active range of motion. Symmetric bilateral lower extremity pitting edema. Bilateral lower extremities are diffusely tender to palpation which patient states is baseline. Skin: No rash or redness. Neurological: Cranial nerves II through XII are grossly intact. Normal strength and sensation in bilateral upper and lower extremities. Normal cerebellar function The rest of the physical exam is unremarkable Const Vital Signs: 04/11/25 21:51 Temperature 97.6 F L Temperature Source Temporal Pulse Rate 75 Respiratory Rate 20 H Blood Pressure 193/87 H Blood Pressure Mean 122 Pulse Ox 92 Oxygen Delivery Method Nasal Cannula Fraction of Inspired Oxygen (FIO2) 2 MDM MDM MDM Narrative Medical decision making narrative: Patient is a 89-year-old female presenting to the emergency department for a fall. Patient was seen and examined. Vitals are stable. Patient resting in bed comfortably in no acute distress. She is on her baseline 2 L nasal cannula saturating 94% when I evaluated her. CT brain and cervical spine ordered given head trauma and age. She is neurologically intact. Bilateral shoulder x-rays and coccyx x-ray ordered. She was given a [place] for pain control. Patient states she was reaching for something and lost her balance causing her to fall. She had no symptoms that caused her to fall. CT brain shows no acute intracranial abnormality. Small scalp hematoma of the posterior calvarium. CT cervical spine shows a acute nondisplaced fracture through the left anterior inferior aspect of the C7 vertebral body that is stable. No other acute fracture or traumatic malalignment. Coccyx x-ray reviewed by myself and shows no fracture or dislocation. Radiology read in agreement. Bilateral shoulder x-rays reviewed and show no acute fracture or dislocation. Chronic fracture deformities in the left shoulder noted by radiologist. Patient and son at bedside were updated on the findings. Patient has no evidence of spinal cord injury in the bilateral upper extremities and on my review of the CT imaging it appears to be a very small fracture. I think this can be managed outpatient and she was given orthopedic spine follow-up. Given how small the fracture is and that it is stable with no neurologic findings I do not think it is necessary to place the patient in a hard cervical collar for 6 weeks. She states that she is on hospice and the goal should be for comfort. This was reiterated to patient and son at bedside. She is able to ambulate at her baseline. Patient discharged from the Emergency Department. I do not feel that the patient's evaluation reveals any acute reason for admission at this time. I instructed them to either follow-up with their primary care physician or promptly return to the Emergency Department for reevaluation should symptoms worsen or new symptoms develop. I explained what symptoms would indicate the need to return to the emergency department. Shared decision making was used. The patient voiced understanding of the treatment plan and is agreeable with it. Clinical impression Fall Chronic pain of both shoulders Head trauma Closed C7 fracture without spinal cord injury Acute coccygeal pain History & Record Review Discussion w/independent historian: Patient and Family Radiography X-Ray: Read by ED Physician and No Fracture Diagnostic Testing: Clinical Impression(s) from Imaging Studies Brain CT 04/11/25 22:20 IMPRESSION: No acute intracranial CT abnormality. Scalp hematoma, posterior calvarium. Reading Location: [facility] Cervical Spine CT 04/11/25 22:20 IMPRESSION: Acute nondisplaced fracture through the left anteroinferior aspect of C7 vertebral body; stable. No other acute fracture or traumatic malalignment. Mild spondylotic changes. Reading Location: [facility] Sacrum and Coccyx X-Ray 04/11/25 23:15 IMPRESSION: No acute fracture or dislocation appreciated. Moderate degenerative arthrosis of the right hip. Reading Location: [facility] Shoulder X-Ray 04/11/25 23:15 IMPRESSION: No evidence of acute fracture or dislocation. Several chronic fracture deformities as noted above. Reading Location: [facility] Shoulder X-Ray 04/11/25 23:15 IMPRESSION: No acute fracture or dislocation. Reading Location: [facility] Discharge Plan Triage Chief Complaint: Fall ED Provider: Tammy Lee Dx/Rx/DC Orders Clinical Impression: Closed C7 fracture without spinal cord injury, Fall, Head trauma, Chronic pain of both shoulders, Acute coccygeal pain Instructions: Neck Fracture (Cervical Fracture), ED Head Injury (Adult), ED Fall Prevention, ED RICE Prescriptions: No Action Prolia 60 mg/mL syringe 60 mg SC [id number] Patient Comments: due February Rx Instructions: due in february hydroxyzine pamoate [Vistaril] 25 mg capsule 25 mg PO BID PRN magnesium 200 mg tablet 400 mg PO QDAY polyethylene glycol 3350 [Miralax] 17 gram/dose powder 4 g PO QDAY pramipexole 1 mg tablet 2 mg PO QHS sertraline 25 mg tablet 25 mg PO QHS tizanidine 2 mg tablet 2 mg PO Q12H PRN simethicone [Gas Relief (simethicone)] 125 mg capsule 125 mg PO Q12H PRN isosorbide mononitrate 30 mg tablet extended release 24 hr 30 mg PO QAM Qty: 30 3RF aspirin 81 mg tablet,chewable 1 tab PO DAILY metoprolol tartrate 100 mg Tablet 100 mg PO BID 30 Days Qty: 60 0RF losartan 100 mg Tablet 100 mg PO DAILY Qty: 0 0RF ascorbic acid (vitamin C) [C-500] 500 mg tablet 500 mg PO DAILY cholecalciferol (vitamin D3) 25 mcg (1,000 unit) capsule 2,000 unit PO DAILY rosuvastatin 20 mg tablet 20 mg PO QHS 30 Days Qty: 30 2RF ferrous sulfate [iron] 325 mg (65 mg iron) tablet 325 mg PO DAILY docusate sodium [Dulcolax Stool Softener (dss)] 100 mg capsule 100 mg PO DAILY acetaminophen 500 mg Tablet 1,000 mg PO Q8H PRN PRN (Reason: pain) Qty: 0 0RF hydrocodone-acetaminophen 7.5-325 mg tablet 1 tab PO QHS PRN PRN (Reason: pain (scale score 4-6)) 7 Days Qty: 0 0RF furosemide [Lasix] 40 mg tablet 40 mg PO .COMPLEX Qty: 36 0RF Rx Instructions: 40 mg orally Take 40 mg BID X 3 days, then resume 40 mg daily; Primary Care Provider: Hussein Swenson Referrals: Medardo Baker MD [Med Staff - Active Staff, Orthopedics] - As soon as possible Hussein Swenson MD [Primary Care Provider, Family Practice] Activity Restrictions/Additional Instructions: You are going to be very sore over the next few days. Refer to the RICE instructions for pain control. Need to follow-up with the orthopedic surgeon below as soon as possible. Your evaluation in the Emergency Department did not reveal any acute reason for admission. However, I want to emphasize that you may be early in the course of a disease process or illness even if it is not present. For this reason you should follow-up within 24 hours for reevaluation with either your primary care physician or if necessary back here in the Emergency Department. You should return to the Emergency Department immediately if your symptoms worsen or new symptoms develop. Print Language: Greenlandic Disposition Disposition: Assisted Living Discharge Location: [facility]
--- NOTE | 2025-04-11 23:15 | RAD_ITS ---
PROCEDURE: SACRUM-COCCYX MIN 2 VIEWS 04/11/2025 REASON FOR EXAM: FALL, PAIN TECHNIQUE: Procedure Code: RADSAC Modality: DX Procedure: SACRUM-COCCYX MIN 2 VIEWS COMPARISON: None. FINDINGS: No evidence of acute fracture or dislocation/subluxation. Bilateral hip joints are intact, with asymmetric moderate degenerative arthrosis of the right hip, and mild left hip arthrosis. Qualitative osteopenia. Grossly unremarkable soft tissues. RAD/Sacrum-Coccyx min 2 Views IMPRESSION: No acute fracture or dislocation appreciated. Moderate degenerative arthrosis of the right hip. Reading Location: [id number]
--- NOTE | 2025-04-11 23:15 | RAD_ITS ---
PROCEDURE: LEFT SHOULDER MIN 2 VIEWS 04/11/2025 REASON FOR EXAM: PAIN, FALL TECHNIQUE: Procedure Code: RADSH Modality: DX Procedure: SHOULDER MIN 2 VIEWS Laterality: Left COMPARISON: Chest x-ray 03/15/2025. FINDINGS: No acute fracture or dislocation appreciated. Chronic healed fracture deformity of the left humeral head/surgical neck. Multiple chronic left posterolateral rib fracture deformities. Chronic lower thoracic compression fractures. Generalized qualitative osteopenia. Grossly unremarkable soft tissues. RAD/Shoulder min 2 Views IMPRESSION: No evidence of acute fracture or dislocation. Several chronic fracture deformities as noted above. Reading Location: [id number]
--- NOTE | 2025-04-11 23:15 | RAD_ITS ---
PROCEDURE: RIGHT SHOULDER MIN 2 VIEWS 04/11/2025 REASON FOR EXAM: PAIN,FALL TECHNIQUE: Procedure Code: RADSH Modality: DX Procedure: SHOULDER MIN 2 VIEWS Laterality: Right COMPARISON: 02/09/2020 FINDINGS: No acute fracture or dislocation. Alignment is anatomic. Preserved glenohumeral and AC joint spaces. Generalized qualitative osteopenia. Grossly unremarkable soft tissues. RAD/Shoulder min 2 Views IMPRESSION: No acute fracture or dislocation. Reading Location: [id number]
[2025-04-11] MEDS: HYDROcodone Bitartrate/Apap 5/325 Tablet PO (23:29)
[2025-04-11 23:49] VITALS: BP 146/56; PULSE 73; O2SAT 95
--- NOTE | 2025-04-12 00:26 | ED.RN ---
Report called to Sanju
[2025-04-12 00:28] VITALS: BP 146/56; PULSE 73; RESP 20; TEMP 36.4; O2SAT 95
--- NOTE | 2025-04-12 00:57 | ED.RN ---
Update given to Hospice
[2025-04-12 01:00] VITALS: BP 118/45; PULSE 65; O2SAT 98
== END 2025-04-12 01:22 | disposition home or self-care (01) ==
PROVIDERS: Emergency Provider Student in an Organized Health Care Education/Training Program; PCP Family Medicine; Visit Provider Student in an Organized Health Care Education/Training Program
DX: S12.601A Unspecified nondisplaced fracture of seventh cervical vertebra, initial encounter for closed fracture (principal); J44.9 Chronic obstructive pulmonary disease, unspecified; I48.0 Paroxysmal atrial fibrillation; S00.03XA Contusion of scalp, initial encounter; W01.190A Fall on same level from slipping, tripping and stumbling with subsequent striking against furniture, initial encounter; M53.3 Sacrococcygeal disorders, not elsewhere classified; M25.512 Pain in left shoulder; M25.511 Pain in right shoulder; I10 Essential (primary) hypertension; I87.2 Venous insufficiency (chronic) (peripheral); D50.9 Iron deficiency anemia, unspecified; E55.9 Vitamin D deficiency, unspecified; E03.9 Hypothyroidism, unspecified; E78.5 Hyperlipidemia, unspecified; M81.0 Age-related osteoporosis without current pathological fracture; G89.29 Other chronic pain; G47.33 Obstructive sleep apnea (adult) (pediatric); G25.81 Restless legs syndrome; Z99.81 Dependence on supplemental oxygen; Z86.73 Personal history of transient ischemic attack (TIA), and cerebral infarction without residual deficits; Z79.82 Long term (current) use of aspirin; Z79.899 Other long term (current) drug therapy
CPT/HCPCS: 70450; 72125; 72220; 73030; 99284